=== PATIENT | male | born 1950 | race Caucasian/White ===

== ENCOUNTER 2020-07-12 11:18 | Emergency (ER) | payer MEDICARE, OTHER, SELFPAY ==
--- NOTE | ~2020-07-12 | XR_ITS ---
EXAMINATION: XR foot RT min 3V DATE: 07/12/2020 14:54 INDICATION: Toe deformity. TECHNIQUE: 4 views of right foot were obtained. COMPARISON: None. FINDINGS: Bone alignment is normal. No fracture. There is diffuse osteopenia. There is mild osteoarth ritis of first and second metatarsophalangeal joints and some of the interphalangeal joints and midfo ot joints. There are enthesophytes at the posterior and plantar aspects of calcaneal tuberosity. Ther e is soft tissue swelling of the foot and ankle. IMPRESSION: 1. Mild polyarticular osteoarthritis. Reviewed, dictated and finalized at location A.
[2020-07-12 11:21] VITALS: BP 150/74; PULSE 84; RESP 18; TEMP 36.1; O2SAT 98
[2020-07-12 12:36] VITALS: BP 169/69; PULSE 90; RESP 12; O2SAT 98
[2020-07-12 13:10] LABS: Basophils Absolute Auto 0.1 K/mm3 (0.0-0.1); Basophils Percent Auto 1.7 % (0.2-1.2); Eosinophils Absolute Auto 0.5 K/mm3 (0-0.3); Eosinophils Percent Auto 6.8 % (0-4.4); Hematocrit 38.3 % (42.0-52.0); Hemoglobin 11.3 g/dL (14.0-18.0); Immature Granulocyte Absolute 0.02 K/mm3 (0.00-0.031); Immature Granulocyte Percent A 0.3 % (0-0.5); Lymphocytes Absolute Auto 0.84 K/mm3 (0.9-3.2); Lymphocytes Percent Auto 12.6 % (18.3-44.2); Mean Corpuscular HGB Conc 29.5 g/dl (32-36); Mean Corpuscular Hemoglobin 24.6 pg (26-34); Mean Corpuscular Volume 83.3 fl (80-100); Mean Platelet Volume 10.2 fl (7.4-10.4); Monocytes Absolute Auto 0.7 K/mm3 (0.1-0.6); Monocytes Percent Auto 10.8 % (2.6-8.5); Neutrophils Absolute Auto 4.5 K/mm3 (1.3-6.7); Neutrophils Percent Auto 67.8 % (45.5-73.1); Platelet Count Result 355 k/mm3 (150-375); Red Cell Distribution Width 16.1 % (11.5-14.5); White Blood Count 6.7 K/mm3 (4.5-10.0)
[2020-07-12 13:19] LABS: Anisocytosis 1+ (NORMAL); Ovalocytes 1+ (NORMAL); Platelet Estimate Adequate (Adequate); Stomatocytes 2+ (NORMAL)
[2020-07-12 13:24] LABS: Anion Gap 10 mmol/L (8-16); Blood Urea Nitrogen 15 mg/dL (9-20); CRP 2.5 mg/dL (<1.0); Carbon Dioxide 32 mmol/L (22-30); Chloride 100 mmol/L (98-107); Estimated CRCL calculation 54 ml/min; Estimated Glomerular Filt Rate 33; Glucose 119 mg/dL (75-110); Potassium 3.6 mmol/L (3.4-5.0); Sodium 142 mmol/L (137-145)
[2020-07-12 13:37] LABS: Erythrocyte Sedimentation Rate 30 mm/hr (0-20)
--- NOTE | 2020-07-12 13:59 | ED.WOUNDLAC ---
HPI - Wound/Laceration General Chief Complaint: Wound/Laceration Stated Complaint: wound on leg Time Seen by Provider: 07/12/20 12:38 History of Present Illness HPI narrative: Patient is a 70-year-old male who is presenting to the ER with chronic right foot wound. He has been on antibiotics for over 2 weeks without improvement. He has been taking ciprofloxacin and clindamycin. Previously had been on doxycycline. He has chronic lower extremity edema and is known to have congestive heart failure. Reports difficulty with mobility due to his size and an issue with the spinal surgery in the past. No purulent exudate coming from the wound. Related Data Home Medications Medication Instructions Recorded Confirmed aspirin 81 mg tablet,delayed 81 mg PO DAILY 04/07/19 04/07/19 release furosemide 40 mg tablet 40 mg PO TID tablet 04/07/19 04/07/19 levothyroxine 200 mcg tablet 200 mcg PO QAM tablet 04/07/19 04/07/19 metronidazole 1 % topical gel 1 applic TOPICAL DAILY 04/07/19 04/07/19 minoxidil 10 mg tablet 10 mg PO DAILY 04/07/19 04/07/19 omeprazole magnesium 20 mg 20 mg PO DAILY 04/07/19 04/07/19 tablet,delayed release quinapril 40 mg tablet 40 mg PO DAILY 04/07/19 04/07/19 cholecalciferol (vitamin D3) 25 25 mcg PO DAILY 07/12/20 mcg (1,000 unit) capsule ciprofloxacin HCl 500 mg tablet 500 mg PO Q12H 07/12/20 clindamycin HCl 300 mg capsule 300 mg PO Q8H 07/12/20 fluticasone propionate 50 1 spray INTRANASAL DAILY 07/12/20 mcg/actuation nasal spray,suspension loratadine 10 mg tablet 10 mg PO DAILY 07/12/20 Allergies Allergy/AdvReac Type Severity Reaction Status Date / Time Sulfa (Sulfonamide Allergy Mild Rash Verified 07/12/20 11:25 Antibiotics) Penicillins Allergy Unknown SWELLING Verified 07/12/20 11:25 codeine AdvReac Mild N/V Verified 07/12/20 11:25 hydrocodone AdvReac Mild N/V Verified 07/12/20 11:25 tramadol AdvReac Mild Nausea Verified 07/12/20 11:25 Review of Systems Review of Systems: All systems reviewed & are unremarkable except as noted in HPI and below Constitutional: Constitutional: Denies chills, Denies fever(s) and Denies weakness Cardiovascular: Cardiovascular: Denies chest pain and Denies radiating jaw, neck or arm pain Respiratory: Respiratory: Denies cough, Denies dyspnea and Denies wheezing Integumentary/Breasts: Skin/Breast: Denies pruritus, Reports erythema, Denies rash and Reports skin ulcer PMFSH Past Medical History Medical History Chronic congestive heart failure Chronic low back pain Chronic venous insufficiency CKD (chronic kidney disease) stage 3, GFR 30-59 ml/min Dyslipidemia Environmental allergies Essential (primary) hypertension GERD without esophagitis Hypothyroidism Ocular rosacea AMELIA (obstructive sleep apnea) Peripheral polyneuropathy Rosacea Surgical History Surgical History History of cholecystectomy History of discectomy 2013 History of foot surgery Left Foot History of rotator cuff surgery bilateral Family History Family History Father Cardiovascular disease Grandparent Cancer Mother COPD (chronic obstructive pulmonary disease) Father Family history of cardiovascular disease Grandparent Family history of malignant neoplasm Social History Social History (System 07/30/19 @ 09:59 by Ailyn Cha) Smoking status: Former smoker Tobacco type: cigarettes Second hand tobacco smoke exposure: No Smoking end date: 04/01/78 Alcohol intake: current Substance use: never Substance use type: does not use Gender identity (if verbalized by the patient): Male Exam Narrative: Exam Narrative: GENERAL: Well-appearing, well-nourished, and in no acute distress. HEAD: Normocephalic, atraumatic. CHEST: Clear to auscultation. No respiratory distress. HEART: Regular r
[2020-07-12 14:31] VITALS: BP 148/79; PULSE 85; RESP 17; O2SAT 95
--- NOTE | 2020-07-12 14:40 | PC.NURSE ---
Pt requests XRAY of toe due to wound nurse mentioned it may be broken. EDP aware and orders for XRAY placed at this time.
== END 2020-07-12 15:07 | disposition home or self-care (01) ==
PROVIDERS: Emergency Provider Emergency Medicine; PCP Family Medicine
DX: I89.0 Lymphedema, not elsewhere classified (principal); S91.301A Unspecified open wound, right foot, initial encounter; I13.0 Hypertensive heart and chronic kidney disease with heart failure and stage 1 through stage 4 chronic kidney disease, or unspecified chronic kidney disease; N18.9 Chronic kidney disease, unspecified; I50.9 Heart failure, unspecified; E78.5 Hyperlipidemia, unspecified; K21.9 Gastro-esophageal reflux disease without esophagitis; E03.9 Hypothyroidism, unspecified; X58.XXXA Exposure to other specified factors, initial encounter
CPT/HCPCS: 36415; 73630; 80048; 85025; 85652; 86140; 99283

== ENCOUNTER 2020-07-14 10:00 | Outpatient (RCR) | payer MEDICARE, OTHER, SELFPAY ==
--- NOTE | 2020-06-27 11:42 | PTOPEVAL ---
PHYSICAL THERAPY EVALUATION AND PLAN OF CARE 06-27-20 Thank you for referring Irwin Cyr to [facility] for the diagnosis of B LE lymphedema.? He is scheduled to be seen for therapy? 3-5 x/week for 4 weeks. Please review, sign, date and return this plan of care LEXX. I agree with and certify that the following plan of care is medically necessary. Referring Physician Date Attending Provider: Eugenia Umaña NP *PT Outpatient Evaluation Document 06/27/20 10:05 AYLSON (Rec: 06/27/20 11:42 ALYSON [id number]) Outpatient Past Medical History Past Medical History Source of Past Medical History Patient Neurological History Hx Other Neurological Disorders Yes: decreased LE strength s/p back surgery Cardiovascular History Hx Cardiomyopathy Yes: enlarged L side heart Hx Congestive Heart Failure Yes: meds Hx Hypertension Yes: meds Respiratory History Hx Other Respiratory Disorders Yes: SOB all time/CHF Gastrointestinal History Hx Appendectomy Yes Hx Cholecystectomy Yes Genitourinary History Hx Renal Disease Yes: stage 4 kidney disease Musculoskeletal History Hx Back Pain Yes: chronic Hx Orthopedic Surgery Yes: lumbar surgery with R>L LE weakness-foot drop R Hx Other Musculoskeletal Disorders Yes: B carpal tunnel surgery- neuropathy B hands Hematological History Hx Hematological Disorders No Significant History Endocrine History Hx Hypothyroidism Yes: meds HEENT History Hx HEENT Disorders No Significant History Integumentary History Hx Other Skin Disorders Yes: rosechia Other History Hx Other Medical Conditions Yes: obesity Evaluation Information Problem Diagnosis B LE lymphedema Onset about 1 year Subjective Information multiple medical issues-- Query Text:As Reported By Patient/ follow with general dr, kidney 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
--- NOTE | 2020-07-15 07:48 | PCPTNOTE ---
no called and canceled due to being in the er until late last night.
--- NOTE | 2020-07-18 07:46 | PCPTNOTE ---
Irwin Cyr cancelled today said he fell on Saturday and was in the ER again per cook [employer] Liss Pepper.
--- NOTE | 2020-07-20 13:46 | PCPTNOTE ---
pt called and canceled today's appt; I called him and left a voice message, to confirm that he has removed his compression wraps. He is to call if any further questions/ concerns before next appt;
--- NOTE | 2020-08-19 11:37 | PCPTNOTE ---
PHYSICAL THERAPY DISCHARGE 08-19-20 Attending Provider: Eugenia Umaña NP Patient:Irwin Cyr Jr. Date of :1950 Mr. Cyr has not returned for any further treatments since 07/14/2020, due to hospitalization, therefore he will be discharged at this time. He has received 6 PT sessions, for the diagnosis of B LE lymphedema from June 27 to July 14. The goals were not assessed. Thank you for referring Irwin to [facility]. Please review, sign, date and return this discharge summary LEXX. I have been updated about the patient's current status and I agree with discharge from the above service at this time. Referring Physician Date
== END 2020-08-19 14:42 | disposition home or self-care (01) ==
LOC: ANHPT 10:00
PROVIDERS: PCP Family Medicine; Visit Provider Nurse Practitioner Adult Health
DX: I89.0 Lymphedema, not elsewhere classified (principal)
CPT/HCPCS: 29581; 97016; 97140; 97162

== ENCOUNTER 2020-07-14 19:05 | Emergency (ER) | payer MEDICARE, OTHER, SELFPAY ==
--- NOTE | ~2020-07-14 | CT_ITS ---
EXAMINATION: CT brain wo con DATE: 07/14/2020 21:57 INDICATION: Dizziness TECHNIQUE: Computed tomography (CT) of the head was performed without intravenous contrast. The mA wa s adjusted according to patient size. Iterative reconstruction technique was employed. Exam dose: 75 6.67 mGy-cm total exam DLP. COMPARISON: None FINDINGS: Limited examination: There is considerable streak artifact from tooth fillings which in com bination with nonstandard imaging results in considerable streak artifact particularly through the po sterior fossa and brainstem, limiting evaluation in these areas in particular. There is motion streak artifact as well. There is central and cortical cerebral atrophy. Bilateral vertebral artery and carotid siphon internal carotid artery calcifications are present. There is no evidence intracranial mass lesion or hemorrhage, midline shift or mass effect. No subdura l or epidural hematoma. Right scleral band. The paranasal sinuses and mastoid air cells are normally developed and aerated. No fracture or bone destruction of the cranial vault is evident. IMPRESSION: Limited examination; no acute intracranial finding Cerebral atherosclerosis Cerebral atrophy Reviewed, dictated and finalized at Location A. Reviewed, dictated and finalized at location A.
--- NOTE | ~2020-07-14 | XR_ITS ---
XR chest 1V portable DATE: 07/14/2020 21:17 INDICATION: Dizziness. Nausea and vomiting. History of congestive heart failure. TECHNIQUE: Portable AP chest on 07/14/2020 2102 hours COMPARISON: 05/19/2015 PA and lateral chest FINDINGS: Cardiomegaly. There is pulmonary vascular congestion and redistribution. There is mild infiltrate and/or atelectasis in the lower lung zones, left greater than right. Cannot exclude small pleural effusions. No pneumothorax. Aortic arch calcification, mild aortic unfolding. IMPRESSION: Cardiomegaly, pulmonary vascular redistribution, consistent with mild congestive heart fa ilure Mild infiltrate or atelectasis in the lower lung zones Reviewed, dictated and finalized at location A. IMPRESSION: Cardiomegaly, pulmonary vascular redistribution, consistent with mi ld congestive heart failure Mild infiltrate or atelectasis in the lower lung zones
[2020-07-14 19:06] VITALS: BP 167/89; PULSE 89; RESP 20; TEMP 36.8; O2SAT 80
[2020-07-14 19:18] VITALS: BP 128/83; PULSE 80; RESP 12; TEMP 37.1; O2SAT 95
--- NOTE | 2020-07-14 19:24 | ECG_ITS ---
Measurements Intervals [place] Rate: 64 P: SD: 0 QRS: -49 QRSD: 168 T: -20 QT: 473 QTc: 490 Interpretive Statements SINUS OR ECTOPIC ATRIAL RHYTHM WITH 2ND DEGREE AV BLOCK, MOBITZ TYPE II RIGHT BUNDLE BRANCH BLOCK LEFT ANTERIOR FASCICULAR BLOCK BASELINE ARTIFACT- II, III, AVF, V4 ABNORMAL ECG Electronically Signed On 07-15-2020 0:21:46 CDT by Reid Hubbard D.O.
--- NOTE | 2020-07-14 19:48 | PC.NURSE ---
Pt presents to ED from home with complaints of sob and nausea and vomiting post fall. Pt noted to hit left occipital lobe on ceramic loraine. Pt states he was ambulating to restroom and fell to floor. Pt is unaware of loc. Provided 4mg of zofran by ems while en route; pt continues to complain of nausea. Pt was also noted to have desaturated en route to ED and arrived to ED on 2 liters of O2 with saturation of 88%. O3 increased to 4 liters and pt tolerating well with saturation of 95%. Pt alert and oriented x4 at this time and in no obvious distress. EDMD notified of pt persistent nausea and dry heaving. No new orders provided at this time. Call button and personal items within reach. Pt advised to press call button for assistance.
[2020-07-14 19:54] LABS: Basophils Absolute Auto 0.1 K/mm3 (0.0-0.1); Basophils Percent Auto 1.6 % (0.2-1.2); Eosinophils Absolute Auto 0.5 K/mm3 (0-0.3); Eosinophils Percent Auto 7.9 % (0-4.4); Hematocrit 37.8 % (42.0-52.0); Immature Granulocyte Absolute 0.01 K/mm3 (0.00-0.031); Immature Granulocyte Percent A 0.2 % (0-0.5); Lymphocytes Absolute Auto 0.98 K/mm3 (0.9-3.2); Lymphocytes Percent Auto 17.2 % (18.3-44.2); Mean Corpuscular HGB Conc 29.1 g/dl (32-36); Mean Corpuscular Hemoglobin 24.4 pg (26-34); Mean Platelet Volume 10.3 fl (7.4-10.4); Monocytes Absolute Auto 0.6 K/mm3 (0.1-0.6); Monocytes Percent Auto 11.2 % (2.6-8.5); Neutrophils Absolute Auto 3.5 K/mm3 (1.3-6.7); Neutrophils Percent Auto 61.9 % (45.5-73.1); Platelet Count Result 318 k/mm3 (150-375); Red Cell Distribution Width 15.9 % (11.5-14.5); White Blood Count 5.7 K/mm3 (4.5-10.0)
[2020-07-14] MEDS: diphenhydrAMINE HCl INJ 50 MG/ML VIAL 25 MG IV PUSH (20:02)
[2020-07-14] MEDS: PROCHLORPERAZINE EDISYLATE 10 MG/2 ML VIAL IV PUSH (20:03)
[2020-07-14 20:07] LABS: Alanine Aminotransferase 10 U/L (4-50); Albumin Level 4.2 g/dL (3.5-5.1); Alkaline Phosphatase 66 U/L (38-126); Anion Gap 5 mmol/L (8-16); Aspartate Amino Transferase 24 U/L (17-59); Bilirubin,Total 0.8 mg/dL (0.2-1.3); Blood Urea Nitrogen 13 mg/dL (9-20); Calcium 8.4 mg/dL (8.4-10.2); Carbon Dioxide 33 mmol/L (22-30); Chloride 102 mmol/L (98-107); Estimated Glomerular Filt Rate 35; Glucose 107 mg/dL (75-110); Platelet Estimate Adequate (Adequate); Potassium 3.8 mmol/L (3.4-5.0); Sodium 140 mmol/L (137-145)
[2020-07-14 20:09] LABS: Anisocytosis 2+ (NORMAL); Hypochromasia 1+ (NORMAL)
--- NOTE | 2020-07-14 20:38 | PC.NURSE ---
Pt currently resting on cart. Straight cath performed for UA as pt was unable to provide sample. Pt tolerated procedure well and is resting on cart in its lowest position with call button and personal items within reach. Pt continues to tolerate O2 well with saturation of 94% at this time. Vitals remains stable and pt advised to press call button for assistance.
--- NOTE | 2020-07-14 20:38 | ED.DIZZY ---
HPI - Dizziness General Chief Complaint: Dizziness Stated Complaint: dizzy, n/v Time Seen by Provider: 07/14/20 19:18 Source: patient and EMS Mode of arrival: EMS Limitations: no limitations History of Present Illness HPI Narrative: 70-year-old male History of hypertension and of severe lymphedema in both legs for the last 7 or 8 years which severely limits his mobility and he always uses a walker Tonight he went into the restroom using his walker to dump out his urinal and fell He is not quite sure how that happened, he does not think that he was dizzy or syncopal and does not recall tripping On the other hand he does think that he hit his head on the tile floor and since that time he has had a headache, nausea and vomiting, and intense dizziness which is negligible if he remains still but can become quite violently severe if he moves around Does not have any neck pain or any other new neurologic symptoms Does have chronic hearing loss and tinnitus in both ears MD elicited complaint: dizziness Related Data Home Medications Medication Instructions Recorded Confirmed aspirin 81 mg tablet,delayed 81 mg PO DAILY 04/07/19 04/07/19 release furosemide 40 mg tablet 40 mg PO TID tablet 04/07/19 04/07/19 levothyroxine 200 mcg tablet 200 mcg PO QAM tablet 04/07/19 04/07/19 metronidazole 1 % topical gel 1 applic TOPICAL DAILY 04/07/19 04/07/19 minoxidil 10 mg tablet 10 mg PO DAILY 04/07/19 04/07/19 omeprazole magnesium 20 mg 20 mg PO DAILY 04/07/19 04/07/19 tablet,delayed release quinapril 40 mg tablet 40 mg PO DAILY 04/07/19 04/07/19 cholecalciferol (vitamin D3) 25 25 mcg PO DAILY 07/12/20 mcg (1,000 unit) capsule ciprofloxacin HCl 500 mg tablet 500 mg PO Q12H 07/12/20 clindamycin HCl 300 mg capsule 300 mg PO Q8H 07/12/20 fluticasone propionate 50 1 spray INTRANASAL DAILY 07/12/20 mcg/actuation nasal spray,suspension loratadine 10 mg tablet 10 mg PO DAILY 07/12/20 Allergies Allergy/AdvReac Type Severity Reaction Status Date / Time Sulfa (Sulfonamide Allergy Mild Rash Verified 07/12/20 11:25 Antibiotics) Penicillins Allergy Unknown SWELLING Verified 07/12/20 11:25 codeine AdvReac Mild N/V Verified 07/12/20 11:25 hydrocodone AdvReac Mild N/V Verified 07/12/20 11:25 tramadol AdvReac Mild Nausea Verified 07/12/20 11:25 Review of Systems Review of Systems: All systems reviewed & are unremarkable except as noted in HPI and below Constitutional: Constitutional: Reports no additional constitutional complaints, Denies chills, Denies fever(s) and Denies headache(s) Eyes: Eyes: Reports no additional eye complaints and Denies change in vision ENT: Denies headache(s) and Denies sore throat Cardiovascular: Cardiovascular: Denies chest pain and Denies dyspnea Respiratory: Respiratory: Denies cough and Denies dyspnea Gastrointestinal: Gastrointestinal: Denies abdominal pain, Denies diarrhea and Denies vomiting Genitourinary: Genitourinary: Denies dysuria and Denies urinary frequency Musculoskeletal: Musculoskeletal: Reports myalgias, Denies deformity, Reports arthralgias, Reports joint swelling and Denies numbness Integumentary/Breasts: Skin/Breast: Reports erythema, Denies rash and Denies wounds Neurologic: Reports vertigo, Reports dizziness, Denies headache(s), Denies focal weakness and Denies numbness Psychiatric: Psychiatric: Reports no additional psychiatric complaints Endocrine: Endocrine: Reports no additional endocrine complaints Hematologic/Lymphatic: Hematologic/Lymphatic: Reports no additional hematologic/lymphatic complaints Allergic/Immunologic: Allergic/Immunologic: Reports no additional allergic/immunologic complaints PMFSH Past Medical History Medical History Chronic congestive heart failure Chronic low back pain Chronic venous insufficiency CKD (chronic kidney disease) stage 3, GFR 30-59 ml/min Dyslipidemia Environmental a
[2020-07-14 20:46] LABS: Add Urine Microscopic? YES; Appearance Urine Clear (Clear); Bilirubin Urine Negative (Negative); Blood Urine Negative (Negative); Color Urine Yellow (Yellow); Glucose Urine UA Negative (Negative); Ketones Urine Negative (Negative); Leukocyte Esterase Ur Negative LEU/UL (Negative); Mucus Urine Rare /lpf; Nitrate Urine Negative (Negative); Protein Urine 2+ mg/dL (Negative); RBC Urine 0-2 /hpf (0-2); Specific Grav Ur 1.014 (1.001-1.035); Squamous Epithelial Cell Urine Rare /hpf (Few); Urobilinogen Urine Negative mg/dL (<2.0); WBC Urine 0-3 /hpf
--- NOTE | 2020-07-14 21:47 | PC.NURSE ---
Pt states he feels better since medication administration and denies nausea and emesis. Call button and personal items within reach. Vitals stable and pt remains alert and oriented x4. Pt advised to press call button for assistance. Pt requests water; will notify EDMD.
[2020-07-14 21:49] VITALS: BP 136/67; PULSE 88; RESP 18; TEMP 36.7; O2SAT 94
--- NOTE | 2020-07-14 21:56 | PC.NURSE ---
Pt to and from ct and is now back in room resting on cart. Pt requesting water and was advised that he may not have anything to until ct results post; pt voices his understanding.
--- NOTE | 2020-07-14 22:55 | PC.NURSE ---
Pt resting on cart in its lowest position with call button and personal items within reach. No complaints or concerns voiced. Pt remains alert and oriented x4 and vitals are stable. Pt advised to press call button for assistance.
[2020-07-14 23:19] VITALS: BP 153/76; PULSE 85; RESP 28; TEMP 36.7; O2SAT 97
--- NOTE | 2020-07-14 23:19 | PC.NURSE ---
Pt called daughter for transport back home and states she will present to ED in 20-30 mins.
== END 2020-07-14 23:41 | disposition home or self-care (01) ==
PROVIDERS: Emergency Provider Emergency Medicine; PCP Family Medicine
DX: R42 Dizziness and giddiness (principal); H93.13 Tinnitus, bilateral; H91.93 Unspecified hearing loss, bilateral; I13.0 Hypertensive heart and chronic kidney disease with heart failure and stage 1 through stage 4 chronic kidney disease, or unspecified chronic kidney disease; N18.30 Chronic kidney disease, stage 3 unspecified; I50.9 Heart failure, unspecified; K21.9 Gastro-esophageal reflux disease without esophagitis; E78.5 Hyperlipidemia, unspecified; E03.9 Hypothyroidism, unspecified; G47.33 Obstructive sleep apnea (adult) (pediatric); G62.9 Polyneuropathy, unspecified; Z87.891 Personal history of nicotine dependence; Z79.82 Long term (current) use of aspirin; I45.2 Bifascicular block; R94.31 Abnormal electrocardiogram [ECG] [EKG]
CPT/HCPCS: 36415; 70450; 71045; 80053; 81001; 85025; 93005; 96374; 96375; 99284; J0780; J1200

== ENCOUNTER 2020-07-20 11:49 | Inpatient (IN) | payer MEDICARE, OTHER, SELFPAY ==
[2020-07-20] VITALS (8 sets, daily range): BP systolic 96–135; BP diastolic 52–102; PULSE 79–90; RESP 15–22; TEMP 36.6–37.1; O2SAT 91–98; BMI 59.9
--- NOTE | ~2020-07-20 | XR_ITS ---
EXAMINATION: XR chest 1V portable DATE: 07/20/2020 13:22 INDICATION: Cough TECHNIQUE: frontal view of the chest was obtained. COMPARISON: Chest radiograph dated 07/14/20 FINDINGS: Opacities in the bilateral lower lung zones. Blunting of the costophrenic angles which could represen t small bilateral pleural effusions. No pneumothorax. Cardiomegaly. Calcified right paratracheal lymp h node consistent with old granulomatous disease. Visualized bones and soft tissues are unremarkable. IMPRESSION: 1. Opacities in the bilateral lower lung zones which could represent mild pulmonary edema, atelectasi s, pneumonia, small pleural effusions or some combination thereof. 2. Cardiomegaly. Reviewed, dictated and finalized at location A. IMPRESSION: 1. Opacities in the bilateral lower lung zones which could represent mild pulmo nary edema, atelectasis, pneumonia, small pleural effusions or some combination thereof. 2. Cardiomegaly.
--- NOTE | ~2020-07-20 | XR_ITS ---
EXAMINATION: XR foot RT min 3V DATE: 07/20/2020 13:22 INDICATION: Right foot wound TECHNIQUE: Dorsoplantar, two oblique and lateral views of the right foot were obtained. COMPARISON: 07/12/2020 FINDINGS: Bone alignment is normal. Diffuse osteopenia. No fracture. Minimal to mild polyarticular osteoarthrit is at multiple joints in the mid and forefoot. Moderate-sized Achilles and plantar calcaneal spurs. N o periosteal reaction or cortical erosions to suggest osteomyelitis. Diffuse soft tissue swelling abo ut the right foot. No ankle joint effusion. IMPRESSION: 1. Mild polyarticular osteoarthritis. No acute osseous abnormality. Reviewed, dictated and finalized at location A.
--- NOTE | ~2020-07-20 | XR_ITS ---
XR chest 1V portable DATE: 07/21/2020 06:50 INDICATION: Shortness of breath TECHNIQUE: Portable AP chest on 07/21/2020 at 0649 hours COMPARISON: 07/20/2020 portable AP chest at 1322 hours FINDINGS: There is cardiomegaly, pulmonary vascular congestion and redistribution. There are mild per ihilar and lower lung zone infiltrates which may be due to pulmonary edema. Pneumonia or aspiration a re additional considerations in the differential diagnosis. Included skeletal structures appear unremarkable. IMPRESSION: Cardiomegaly, congestive changes Reviewed, dictated and finalized at location A.
--- NOTE | ~2020-07-20 | XR_ITS ---
EXAMINATION: XR fl guide central line place DATE: 07/21/2020 15:02 INDICATION: Tunneled dialysis catheter placement TECHNIQUE: 2 fluoroscopic images of the right upper chest were obtained during procedure performed by Dr. Jose. Radiologist was not present for the imaging or procedure. The amount of fluoroscopy time used during this procedure was 0.1 minutes. COMPARISON: None. FINDINGS: Images demonstrate a large-bore dual-lumen right internal jugular tunneled central venous catheter wi th distal tip projecting over the region of the superior cavoatrial junction. Visualized portion of t he right lung is clear. IMPRESSION: 1. Fluoroscopy utilized during placement of a right internal jugular central venous catheter. See pro cedure note for further detail. Reviewed, dictated and finalized at location A. IMPRESSION: 1. Fluoroscopy utilized during placement of a right internal jugular central ve nous catheter. See procedure note for further detail.
--- NOTE | ~2020-07-20 | US_ITS ---
US renal BI 07/20/2020 17:51 Procedure: Realtime transabdominal ultrasound of the kidneys and bladder. Indication: Renal failure Comparison: No prior studies for comparison. Findings: Examination limited by patient body habitus. There is fatty infiltration of the liver. Cira l echotexture is normal bilaterally without hydronephrosis, contour deforming mass or renal calculus. The right kidney measures 10.6 cm and left kidney measures 10.7 cm. There is fluid in the pelvis, li ross ascites given that there is a Miller catheter in the bladder. There is ascites in the upper abdom en. Impression: 1: Ascites. 2: Hepatic steatosis. Reviewed, dictated and finalized at location A. Impression: 1: Ascites. 2: Hepatic steatosis.
--- NOTE | ~2020-07-20 | XR_ITS ---
XR chest port-a-cath/central DATE: 07/21/2020 15:22 INDICATION: Tunneled dialysis catheter placement TECHNIQUE: Portable upright AP chest views on 07/21/2020 at 1518 at 1519 hours COMPARISON: 07/21/2020 portable AP chest at 0649 hours FINDINGS: Interval placement of right internal jugular dual-lumen central venous catheter, catheter t ip overlying right atrium. Cardiomegaly. There is pulmonary vascular congestion and redistribution, prominence of the minor fiss ure and pulmonary interstitium including evidence of some Ava B-lines, consistent with pulmonary i nterstitial and subpleural edema. Aortic arch calcification. Left retrocardiac lower lobe infiltrate or atelectasis is suggested, although this area is not optima lly evaluated for technical reasons. IMPRESSION: Right internal jugular central venous catheter placement, tip overlying right atrium Cardiomegaly, congestive changes Reviewed, dictated and finalized at Location A. Reviewed, dictated and finalized at location A. IMPRESSION: Right internal jugular central venous catheter placement, tip overl lisa right atrium Cardiomegaly, congestive changes
--- NOTE | 2020-07-20 12:13 | ECG_ITS ---
Measurements Intervals [place] Rate: 90 P: 257 DC: 210 QRS: -63 QRSD: 166 T: 96 QT: 426 QTc: 522 Interpretive Statements SINUS RHYTHM WITH FIRST DEGREE AV BLOCK VENTRICULAR PREMATURE COMPLEXES RIGHT BUNDLE BRANCH BLOCK LEFT ANTERIOR FASCICULAR BLOCK BASELINE ARTIFACT- I, II, III, AVR, AVF, V3-V6 ABNORMAL ECG Electronically Signed On 07-20-2020 12:45:20 CDT by Reid Hubbard D.O.
--- NOTE | 2020-07-20 12:18 | ED.GENADULT ---
HPI - General Adult General Chief complaint: Recheck/Abnormal Lab/Rx Stated complaint: abnormal kidney function Time Seen by Provider: 07/20/20 12:03 Source: RN notes reviewed History of Present Illness HPI narrative: Patient presents to emergency department from home for elevated creatinine. Patient states that he had a fall approximately week ago and was seen in the ED and follow-up with his primary care physician yesterday for follow-up blood work was done at that time which showed a creatinine up to 5.5 and is called today to come to the emergency department. Patient states that over the past 5 days he has been having increased generalized swelling with mild shortness of breath he states that he has not been taking any NSAIDs he states that he was on 2 antibiotics for a right foot infection that he is no longer taking that he was started on by podiatry denies any fevers or chills chest pain abdominal pain or any other symptoms he states he has had decreased urine output patient does have a history of CHF and is on Lasix 40 mg 3 times a day he is followed by Dr. shepard for for nephrology Related Data Home Medications Medication Instructions Recorded Confirmed aspirin 81 mg tablet,delayed 81 mg PO DAILY 04/07/19 07/19/20 release furosemide 40 mg tablet 40 mg PO TID tablet 04/07/19 07/19/20 levothyroxine 200 mcg tablet 200 mcg PO QAM tablet 04/07/19 07/19/20 minoxidil 10 mg tablet 10 mg PO DAILY 04/07/19 07/19/20 omeprazole magnesium 20 mg 20 mg PO DAILY 04/07/19 07/19/20 tablet,delayed release quinapril 40 mg tablet 40 mg PO DAILY 04/07/19 07/19/20 fluticasone propionate 50 1 spray INTRANASAL DAILY 07/12/20 07/19/20 mcg/actuation nasal spray,suspension loratadine 10 mg tablet 10 mg PO DAILY 07/12/20 07/19/20 Allergies Allergy/AdvReac Type Severity Reaction Status Date / Time Sulfa (Sulfonamide Allergy Mild Rash Verified 07/20/20 14:10 Antibiotics) Penicillins Allergy Unknown SWELLING Verified 07/20/20 14:10 codeine AdvReac Mild N/V Verified 07/20/20 14:10 hydrocodone AdvReac Mild N/V Verified 07/20/20 14:10 tramadol AdvReac Mild Nausea Verified 07/20/20 14:10 Review of Systems Review of Systems: Narrative: Gen.: Denies fevers or chills ENT: Denies congestion Respiratory: Reports shortness of breath CV: Denies chest pain or palpitations reports lower extremity swelling GI: Denies abdominal pain nausea, emesis or diarrhea reports decreased urine output Musculoskeletal: Denies back pain or muscle pain Neuro: Denies numbness, tingling, weakness or focal weakness Skin: Denies rash Except as documented, all other systems reviewed and negative [facility] Past Medical History Medical History Chronic congestive heart failure Chronic low back pain Chronic venous insufficiency CKD (chronic kidney disease) stage 3, GFR 30-59 ml/min Dyslipidemia Environmental allergies Essential (primary) hypertension GERD without esophagitis Hypothyroidism Lymphedema of both lower extremities Ocular rosacea AMELIA (obstructive sleep apnea) Peripheral polyneuropathy Rosacea Surgical History Surgical History H/O eye surgery (~2005) [id number] [facility] History of cholecystectomy (~2008) History of discectomy 2013 History of foot surgery Left Foot History of rotator cuff surgery bilateral Family History Family History Father Cardiovascular disease Grandparent Cancer Mother COPD (chronic obstructive pulmonary disease) Father Family history of cardiovascular disease Grandparent Family history of malignant neoplasm Social History Social History Smoking packs per day: 1.5 Smoking cigarettes per day: 30.0 Years smoked: 30 Smoking pack-years: 45.00 Smoking status: Former smoker Tobacco type
[2020-07-20 12:21] LABS: Basophils Absolute Auto 0.1 K/mm3 (0.0-0.1); Basophils Percent Auto 1.3 % (0.2-1.2); Eosinophils Absolute Auto 0.4 K/mm3 (0-0.3); Eosinophils Percent Auto 5.1 % (0-4.4); Hematocrit 38.6 % (42.0-52.0); Hemoglobin 11.6 g/dL (14.0-18.0); Immature Granulocyte Absolute 0.04 K/mm3 (0.00-0.031); Immature Granulocyte Percent A 0.5 % (0-0.5); Lymphocytes Absolute Auto 1.01 K/mm3 (0.9-3.2); Lymphocytes Percent Auto 13.2 % (18.3-44.2); Mean Corpuscular HGB Conc 30.1 g/dl (32-36); Mean Corpuscular Hemoglobin 24.7 pg (26-34); Mean Corpuscular Volume 82.1 fl (80-100); Mean Platelet Volume 10.9 fl (7.4-10.4); Monocytes Absolute Auto 0.7 K/mm3 (0.1-0.6); Monocytes Percent Auto 9.2 % (2.6-8.5); Neutrophils Absolute Auto 5.4 K/mm3 (1.3-6.7); Neutrophils Percent Auto 70.7 % (45.5-73.1); Platelet Count Result 366 k/mm3 (150-375); Red Cell Distribution Width 16.3 % (11.5-14.5); White Blood Count 7.7 K/mm3 (4.5-10.0)
[2020-07-20 12:31] LABS: Alanine Aminotransferase 11 U/L (4-50); Albumin Level 4.3 g/dL (3.5-5.1); Alkaline Phosphatase 71 U/L (38-126); Anion Gap 13 mmol/L (8-16); Aspartate Amino Transferase 28 U/L (17-59); Bilirubin,Total 0.9 mg/dL (0.2-1.3); Blood Urea Nitrogen 41 mg/dL (9-20); Calcium 8.6 mg/dL (8.4-10.2); Carbon Dioxide 26 mmol/L (22-30); Chloride 96 mmol/L (98-107); Estimated CRCL calculation 18 ml/min; Estimated Glomerular Filt Rate 8; Glucose 130 mg/dL (75-110); Potassium 4.2 mmol/L (3.4-5.0); Sodium 135 mmol/L (137-145)
[2020-07-20 12:38] LABS: INR 1.3; Prothrombin Time 16.3 Seconds (11.1-14.7)
[2020-07-20 12:39] LABS: NT Pro B Type Natriuretic Pept 18800 PG/ML (5-100); Partial Thromboplastin Time 29.5 SECONDS (22.3-36.8)
[2020-07-20 13:22] LABS: Add Urine Microscopic? YES; Appearance Urine Clear (Clear); Bilirubin Urine Negative (Negative); Blood Urine Negative (Negative); Color Urine Yellow (Yellow); Glucose Urine UA Negative (Negative); Hyaline Casts Urine 20-29 /lpf; Ketones Urine Negative (Negative); Leukocyte Esterase Ur Negative LEU/UL (Negative); Mucus Urine Rare /lpf; Nitrate Urine Negative (Negative); Protein Urine 1+ mg/dL (Negative); Specific Grav Ur 1.016 (1.001-1.035); Squamous Epithelial Cell Urine Occasional /hpf (Few); Urobilinogen Urine Negative mg/dL (<2.0)
--- NOTE | 2020-07-20 15:42 | PC.NURSE ---
This patient, Irwin Cyr Jr., was admitted to [facility] Surg Room 315-01. Patient/family oriented to hospital policies and general routines including ID bracelet, bed and alarms, visiting hours, pain management, procedures, bathroom and other care routines, personal items, smoking policy, room service/diet, and visiting hours. Information on how to activate the Rapid Response Team has been discussed. Patient/Family are encouraged to report perceived risks to care and to ask questions if they do not understand what they are told or what they should do.
[2020-07-20] MEDS: SODIUM CHLORIDE 0.9% IV 1,000 ML 50 ML IV CONT (16:18)
--- NOTE | 2020-07-20 17:07 | PM.IMHP ---
H&P: HPI History of Present Illness Date/Time: 07/20/20 17:07 Patient presents to emergency department from home for elevated creatinine taht was noted at blood work done ysterday. he reports she was in a week ago with a fall from weakness. workup was okay at that time. he was sent home. he reports he has been feeeling progerssvely weaker since week now. no nausea, vomting. he has chornic sob but no chest pain. he is paraparetic since his back surgery many years ago and ambulates with walker at home. He also has issues wt chronic lower extremity edema with lymphedema. he was recently treated for his foot infection with antibiocis which include ciprofloxacin 500 mg po bid and clindamycin. he has finished those antibiotics about a week ago and he took them for 3 weeks total. he sees wound care at [facility] and is doing wet to dry. he also went to see lymphedema cinic and had it wrapped a week ago. no fever, chlls. no rash. he also reports that his bp at his PCP office was low. he also been on aleve twice daily. he reports that he has not been urinating much since past few days now. he has been started on ivf as directed by needle punch machine operator helper who was consulted from the ED. Chief Complaint: renal failure Review of Systems Review of Systems: Narrative: - CONSTITUTIONAL: Denies weight loss, fever and chills. - HEENT: Denies changes in vision and hearing - RESPIRATORY: reports chronic SOB , denies cough. - CV: Denies palpitations and CP. - GI: Denies abdominal pain, nausea, vomiting and diarrhea. - : Denies dysuria and urinary frequency. - MSK: Denies myalgia and joint pain. - SKIN: Denies rash and pruritus. - NEUROLOGICAL: Denies headache and syncope. - PSYCHIATRIC: Denies recent changes in mood. Denies anxiety and depression. All systems reviewed & are unremarkable except as noted in HPI and below PMFSH Past Medical History Medical History Chronic congestive heart failure Chronic low back pain Chronic venous insufficiency CKD (chronic kidney disease) stage 3, GFR 30-59 ml/min Dyslipidemia Environmental allergies Essential (primary) hypertension GERD without esophagitis Hypothyroidism Lymphedema of both lower extremities Ocular rosacea AMELIA (obstructive sleep apnea) Peripheral polyneuropathy Rosacea Surgical History Surgical History H/O eye surgery (~2005) [id number] [facility] History of cholecystectomy (~2008) History of discectomy 2013 History of foot surgery Left Foot History of rotator cuff surgery bilateral Family History Family History Father Cardiovascular disease Grandparent Cancer Mother COPD (chronic obstructive pulmonary disease) Father Family history of cardiovascular disease Grandparent Family history of malignant neoplasm Social History Social History Smoking packs per day: 1.5 Smoking cigarettes per day: 30.0 Years smoked: 30 Smoking pack-years: 45.00 Smoking status: Former smoker Second hand tobacco smoke exposure: No Alcohol intake: current Substance use: never Substance use type: does not use Gender identity (if verbalized by the patient): Male Spiritual care concerns: No Meds Home Medications and Allergies Home Medications Medication Instructions Recorded Confirmed Type aspirin 81 mg tablet,delayed 81 mg PO DAILY 04/07/19 07/20/20 History release furosemide 40 mg tablet 40 mg PO TID tablet 04/07/19 07/20/20 History levothyroxine 200 mcg tablet 200 mcg PO QAM tablet 04/07/19 07/20/20 History minoxidil 10 mg tablet 10 mg PO DAILY 04/07/19 07/20/20 History omeprazole magnesium 20 mg 20 mg PO DAILY 04/07/19 07/20/20 History tablet,delayed release quinapril 40 mg tablet 40 mg PO DAILY 04/07/19 07/20/20 History fluticasone propionate
[2020-07-20 17:52] LABS: Creatine Kinase 145 U/L (55-170)
--- NOTE | 2020-07-20 17:55 | PM.CNNEP ---
Assessment and Plan Assessment and plan (1) CKD (chronic kidney disease) stage 3, GFR 30-59 ml/min: Qualifiers: Chronic kidney disease stage 3 subtype: stage 3b (GFR 30-44) Qualified Code(s): N18.32 - Chronic kidney disease, stage 3b Code(s): N18.3 - Chronic kidney disease, stage 3 (moderate) Status: Acute Assessment and Plan: Irwin has chronic kidney disease. His baseline GFR is in the low 30s, giving him stage IIIB chronic kidney disease. Most likely this is due to hypertension and chronic pre renal azotemia due to his poorly functioning heart. (2) Acute renal failure: Code(s): N17.9 - Acute kidney failure, unspecified Status: Acute Assessment and Plan: The patient's creatinine is elevated much more than it was before. This could be some from 1 or more of several different issues; The patient has a history of congestive heart failure. His LV function could just be worse and so his pre renal azotemia is worse. His diuretics were increased 2 months ago. Possibly this is caught up with him but this would be less likely because his creatinine was stable just a week ago. He could have acute interstitial nephritis from the Cipro, but he does not have a rash or fever. He could have obstructive uropathy. He has a Miller catheter in now and if his creatinine improves rapidly this may have been the case. Rhabdomyolysis is a possibility as well. We will check a CPK. Glomerulonephritis is unlikely in this clinical setting. I will check urine electrolytes and eosinophils, renal ultrasound, CPK, serology and immunofixation, and repeat an echocardiogram. (3) CHF (congestive heart failure): Code(s): I50.9 - Heart failure, unspecified Status: Acute Assessment and Plan: The patient says he has congestive heart failure. I do not see an echo on the chart. Will check this out. It is unclear if this is actually left ventricular dysfunction or if this might be due to this sleep apnea and pulmonary hypertension leading to his swelling. His chest x-ray does show bibasilar infiltrates. He is getting some IV fluids. Will give this gingerly and follow his fluid status closely. (4) Lymphedema of both lower extremities: Code(s): I89.0 - Lymphedema, not elsewhere classified Status: Acute Assessment and Plan: This is a chronic problem. He has very thickened skin in is highly likely to get recurrent cellulitis because of this. (5) Essential (primary) hypertension: Code(s): I10 - Essential (primary) hypertension Status: Acute Assessment and Plan: His blood pressure is under good control. He is on minoxidil. His blood pressure might be a bit soft so I am going to hold the minoxidil for now. (6) GERD without esophagitis: Code(s): K21.9 - Gastro-esophageal reflux disease without esophagitis Status: Acute Assessment and Plan: He is on pantoprazole (7) AMELIA (obstructive sleep apnea): Code(s): G47.33 - Obstructive sleep apnea (adult) (pediatric) Status: Acute Assessment and Plan: He uses a CPAP machine per religiously (8) Dyslipidemia: Code(s): E78.5 - Hyperlipidemia, unspecified Status: Acute History of Present Illness Reason for Consult Consult date: 07/20/20 Chief Complaint Chief complaint: acute renal failure History of Present Illness Narrative: Is a very pleasant 70-year-old gentleman who has multiple medical problems including congestive heart failure with a low ejection fraction, chronic edema because of this, chronic use of loop diuretics to treat the edema, chronic kidney disease stage [address] Longo in his office, hyperlipidemia, hypertension, GERD, rosacea, sleep apnea on a CPAP machine. The patient's kidney disease has been going on for more than 10 years. He is to be followed by Dr. Carlson who managed his chronic kidney disease and also kept his blood press
[2020-07-20 19:58] LABS: Creatinine Urine 278.2 mg/dL; Total Protein Urine Random 136 mg/dL; Ur Ttl Prot Creatinine Ratio 0.49 mg/mg (0-0.20)
[2020-07-20 20:00] LABS: Sodium Urine Random 43 meq/L
[2020-07-20 20:01] LABS: Urea Random Urine 217 MG/DL
[2020-07-20 20:27] LABS: Eosinophil Urine None Seen % (None Seen)
[2020-07-20 20:38] LABS: Creatine Kinase 136 U/L (55-170)
[2020-07-20] MEDS: HEPARIN SODIUM 5,000 UNITS/ML VIAL 5000 UNITS SUB-Q (20:40)
[2020-07-20 20:46] LABS: Complement C3 114 mg/dL (88-165)
[2020-07-20 20:51] LABS: Erythrocyte Sedimentation Rate 24 mm/hr (0-20)
[2020-07-21] VITALS (42 sets, daily range): BP systolic 84–155; BP diastolic 42–83; PULSE 74–93; RESP 10–26; TEMP 36–37; O2SAT 92–99
[2020-07-21 05:32] LABS: Glucose Point of Care 85 (65-105)
[2020-07-21] MEDS: SODIUM CHLORIDE 0.9% IV 500 ML 999 ML IV CONT (05:50)
[2020-07-21] MEDS: LEVOTHYROXINE SODIUM 100 MCG TABLET 200 MCG PO (05:51)
--- NOTE | 2020-07-21 05:54 | PC.NURSE ---
Patient blood pressure was low. Notified MD and orders were to do a 500 ml bolus, then recheck patient blood pressure. Patient is asymptomatic at this time.
[2020-07-21 06:09] LABS: Basophils Absolute Auto 0.1 K/mm3 (0.0-0.1); Basophils Percent Auto 1.2 % (0.2-1.2); Eosinophils Absolute Auto 0.3 K/mm3 (0-0.3); Eosinophils Percent Auto 4.6 % (0-4.4); Hematocrit 32.6 % (42.0-52.0); Immature Granulocyte Absolute 0.03 K/mm3 (0.00-0.031); Immature Granulocyte Percent A 0.4 % (0-0.5); Lymphocytes Percent Auto 13.6 % (18.3-44.2); Mean Corpuscular HGB Conc 30.7 g/dl (32-36); Mean Corpuscular Hemoglobin 24.8 pg (26-34); Mean Corpuscular Volume 80.7 fl (80-100); Monocytes Absolute Auto 0.9 K/mm3 (0.1-0.6); Monocytes Percent Auto 11.9 % (2.6-8.5); Neutrophils Percent Auto 68.3 % (45.5-73.1); Platelet Count Result 382 k/mm3 (150-375); Red Blood Count 4.04 M/mm3 (4.6-6.20); Red Cell Distribution Width 16.3 % (11.5-14.5); White Blood Count 7.3 K/mm3 (4.5-10.0)
[2020-07-21 06:44] LABS: Albumin Level 3.7 g/dL (3.5-5.1); Anion Gap 11 mmol/L (8-16); Blood Urea Nitrogen 45 mg/dL (9-20); Calcium 7.7 mg/dL (8.4-10.2); Carbon Dioxide 25 mmol/L (22-30); Chloride 98 mmol/L (98-107); Estimated CRCL calculation 18 ml/min; Estimated Glomerular Filt Rate 9; Glucose 91 mg/dL (75-110); Phosphorus 7.5 mg/dL (2.5-4.5); Potassium 4.4 mmol/L (3.4-5.0); Sodium 134 mmol/L (137-145)
--- NOTE | 2020-07-21 08:11 | PM.PNNEP ---
Progress Note: A&P Assessment and Plan (1) CKD (chronic kidney disease) stage 3, GFR 30-59 ml/min: Qualifiers: Chronic kidney disease stage 3 subtype: stage 3b (GFR 30-44) Qualified Code(s): N18.32 - Chronic kidney disease, stage 3b Code(s): N18.3 - Chronic kidney disease, stage 3 (moderate) Status: Acute Assessment and Plan: Irwin has chronic kidney disease. His baseline GFR is in the low 30s, giving him stage IIIB chronic kidney disease. Most likely this is due to hypertension and chronic pre renal azotemia due to his poorly functioning heart. (2) Acute renal failure: Code(s): N17.9 - Acute kidney failure, unspecified Status: Acute Assessment and Plan: The patient has JENA Normal size kidneys without hydronephrosis. He does have hepatic steatosis and ascites. Urine electrolytes show pre renal azotemia Urine eosinophils are negative. Echo is not done yet. With pre renal azotemia and pulmonary edema on his chest x-ray this sounds like LV failure. Echocardiogram is pending. Because of the volume overload I will give Bumex 2 mg IV push now. He hardly made any urine overnight, only 50cc. If he does not respond to the Bumex then we may need to do dialysis. I discussed this with the patient. We discussed the risks including hypotension, benefits, alternatives, and the process of dialysis. He agrees to proceed if we need to do this. Other possibilities include interstitial nephritis. He has peripheral eosinophilia but is eosinophils are negative, he does not have a fever. Consider a trial of steroids. Will discuss with the hospitalist. He has a Miller catheter in place and does not have hydronephrosis so I do not think obstruction is an issue here. His CPK is normal. So for now will give Bumex, consider dialysis, consider steroids. (3) CHF (congestive heart failure): Code(s): I50.9 - Heart failure, unspecified Status: Acute Assessment and Plan: Echo is pending (4) Lymphedema of both lower extremities: Code(s): I89.0 - Lymphedema, not elsewhere classified Status: Acute Assessment and Plan: This is a chronic problem. He has very thickened skin in is highly likely to get recurrent cellulitis because of this. Currently, he does not have a white count or a fever. (5) Essential (primary) hypertension: Code(s): I10 - Essential (primary) hypertension Status: Acute Assessment and Plan: His blood pressure is actually a bit low. He is off his minoxidil. (6) GERD without esophagitis: Code(s): K21.9 - Gastro-esophageal reflux disease without esophagitis Status: Acute Assessment and Plan: He is on pantoprazole (7) AMELIA (obstructive sleep apnea): Code(s): G47.33 - Obstructive sleep apnea (adult) (pediatric) Status: Acute Assessment and Plan: He uses a CPAP machine per religiously (8) Dyslipidemia: Code(s): E78.5 - Hyperlipidemia, unspecified Status: Acute Subjective Date/time seen: 07/21/20 08:11 Interval history: The patient developed low blood pressure last night. He received some fluids to help this out but then became short of breath. Now he is on a BiPAP mask. His O2 sat is 96% currently. He is lying flat in bed. Does not feel short of breath but is on the CPAP machine. No chest pain. No belly pain or nausea or vomiting. Review of Systems Cardiovascular: Cardiovascular: Reports no additional cardiovascular complaints Respiratory: Respiratory: Reports no additional respiratory complaints Gastrointestinal: Gastrointestinal: Reports no additional gastrointestinal complaints Genitourinary: Genitourinary: Reports no additional male genitourinary complaints Exam Narrative: Exam Narrative: WDWN in NAD skin no rash head ncat lungs decreased breath sounds at the bases cor reg no rub abd BS+ nontender and soft ext no edema. Objecti
[2020-07-21] MEDS: BUMETANIDE INJ 1 MG/4 ML VIAL 2 MG IV PUSH (08:34)
[2020-07-21] MEDS: FLUTICASONE PROPIONATE 0.05% NA SPR 16 GM BTL (*BKC) 1 SPRAY NASAL (08:53)
[2020-07-21] MEDS: ASPIRIN 81 MG ENTERIC TABLET PO (08:53)
[2020-07-21] MEDS: LORATADINE 10 MG TABLET PO (08:54)
[2020-07-21] MEDS: PANTOPRAZOLE 40 MG TABLET PO (08:54)
--- NOTE | 2020-07-21 10:39 | PC.NURSE ---
Recvd report from night nurse that pt had a soft BP warranting a 500 ml NS bolus which then led to pt having pulmonary edema. Pt was placed on BIPAP at settings of 21/10 (pt normal bipap settings are ). Quickly assessed pt who was resting comfortably in bed on bipap with no shortness of breath noted. Pt stated only pain from being in a small bed; pt could benefit from a chris bed. Dr. Al and Dr. Aldridge to see pt. Dr. Al ordered 2mg bumex IVP one time now and strongly considering dialysis for pt. Dr. Aldridge put in for transfer to IMU for pt to continuous bipap to assist pt with respiratory status. Pt had minimal urinary output last night of 50 mls. Morning medications including bumex given. Report given to Jacey at 0840. Attempted to call daughter to notify of transfer to IMU, but daughter's voice mail was full. Notified Lashell to tell Jacey about pt family being unable to reach.
[2020-07-21] MEDS: HEPARIN SODIUM 5,000 UNITS/ML VIAL 5000 UNITS SUB-Q ×2 (10:42→14:54)
[2020-07-21] MEDS: PERFLUTREN LIPID MICROSPHERES 1.5 ML VIAL DILUTED TO 10 ML TOTAL VOLUME IV PUSH (10:45)
--- NOTE | 2020-07-21 11:38 | PM.IMPN ---
Progress Note: A&P Assessment and Plan (1) Acute renal failure: Code(s): N17.9 - Acute kidney failure, unspecified Status: Acute (2) Venous stasis ulcer of right lower extremity: Code(s): I83.019 - Varicose veins of right lower extremity with ulcer of unspecified site; L97.919 - Non-pressure chronic ulcer of unspecified part of right lower leg with unspecified severity Status: Acute (3) Lymphedema of both lower extremities: Code(s): I89.0 - Lymphedema, not elsewhere classified Status: Acute (4) Rosacea: Code(s): L71.9 - Rosacea, unspecified Status: Acute (5) Chronic low back pain: Qualifiers: Back pain laterality: unspecified Sciatica presence: unspecified whether sciatica present Qualified Code(s): M54.5 - Low back pain; G89.29 - Other chronic pain Code(s): M54.5 - Low back pain; G89.29 - Other chronic pain Status: Acute (6) Chronic congestive heart failure: Qualifiers: Heart failure type: unspecified Qualified Code(s): I50.9 - Heart failure, unspecified Code(s): I50.9 - Heart failure, unspecified Status: Acute (7) Hypothyroidism: Qualifiers: Hypothyroidism type: acquired Qualified Code(s): E03.9 - Hypothyroidism, unspecified Code(s): E03.9 - Hypothyroidism, unspecified Status: Acute (8) Chronic venous insufficiency: Code(s): I87.2 - Venous insufficiency (chronic) (peripheral) Status: Acute (9) GERD without esophagitis: Code(s): K21.9 - Gastro-esophageal reflux disease without esophagitis Status: Acute (10) Dyslipidemia: Code(s): E78.5 - Hyperlipidemia, unspecified Status: Acute (11) CKD (chronic kidney disease) stage 3, GFR 30-59 ml/min: Qualifiers: Chronic kidney disease stage 3 subtype: stage 3b (GFR 30-44) Qualified Code(s): N18.32 - Chronic kidney disease, stage 3b Code(s): N18.3 - Chronic kidney disease, stage 3 (moderate) Status: Acute (12) Essential (primary) hypertension: Code(s): I10 - Essential (primary) hypertension Status: Acute (13) Peripheral polyneuropathy: Code(s): G62.9 - Polyneuropathy, unspecified Status: Acute (14) AMELIA (obstructive sleep apnea): Code(s): G47.33 - Obstructive sleep apnea (adult) (pediatric) Status: Acute Additional Plan # Acute on chronic renal failure stage III: baseline cr 1.7-2. currently 6.5. chronology of symptoms indicative of prerenal cause, however monica cause from his recent antibiotics, foot infection etc is possible as well. Urinalysis looks bland not suggestive of overt ATN. will continue gentle hydration as ordered and recommended by button grader at 50 cc/hr. urine studies eivewed. FeNA 0.7% FeUrea 12.4% suggestive of prerenal disease. urine eosinophil negative. arechiga in place. US kidney with no hydronephrosis. Strict I and O. CXR with bialteral effusion which is likely chronic, recent cxr compared and is very less congested comapred to recently. avoid nephrotoxic medications. hold quinapril stop alevel hold lasix Currenlty fluids on hold due to congestive changes. bumex ordered per nephrology. may need supportive dialysis until the creatinine imporves. # Aucte on chornic congestive heart failrue: diuretics restarted. congesive chagnes with fluid resuscitation. recheck echo in process. he had diastolic heart failure in . # hx of pericardial efffusion needing window in the past 2003 # bilateral diffuse lymphedema lower extrmeities: OT to see for lymphedema. # Right foot verrous changes needs wound care. will consult wound care. # Chronic low back pain # Chronic venous insufficiency # CKD (chronic kidney disease) stage 3, GFR 30-59 ml/min # Dyslipidemia # Essential (primary) hypertension: hypotensive overnight. hold bp medications. # GERD without esophagitis # Hypothyroidism: levothyroxine # AMELIA: on cpap at night.
--- NOTE | 2020-07-21 11:44 | PM.CNGS ---
Assessment and Plan Assessment and plan (1) Acute renal failure: Code(s): N17.9 - Acute kidney failure, unspecified Status: Acute Assessment and Plan: Acute on chronic renal failure. Nephrology has consulted us to place a tunnelled dialysis catheter today. Patient has been NPO. I have discussed the description of the procedure, risks, benefits, expected outcomes, and expected recovery with the patient in detail. All questions were answered. He agrees to proceed. I have discussed the patient's case and plan of care with Dr. Jose, who will add the patient onto the surgery schedule later today for placement of a tunnelled dialysis catheter. (2) CKD (chronic kidney disease) stage 3, GFR 30-59 ml/min: Qualifiers: Chronic kidney disease stage 3 subtype: stage 3b (GFR 30-44) Qualified Code(s): N18.32 - Chronic kidney disease, stage 3b Code(s): N18.3 - Chronic kidney disease, stage 3 (moderate) Status: Acute (3) CHF (congestive heart failure): Code(s): I50.9 - Heart failure, unspecified Status: Acute Assessment and Plan: The patient is a high risk surgical candidate due to his morbid obesity and multiple co-morbidities. (4) Morbid obesity with BMI of 50.0-59.9, adult: Code(s): E66.01 - Morbid (severe) obesity due to excess calories; Z68.43 - Body mass index [BMI] 50.0-59.9, adult Status: Acute (5) AMELIA (obstructive sleep apnea): Code(s): G47.33 - Obstructive sleep apnea (adult) (pediatric) Status: Acute (6) Lymphedema of both lower extremities: Code(s): I89.0 - Lymphedema, not elsewhere classified Status: Acute History of Present Illness Consult details Consult date: 07/21/20 Reason for consult: other (Placement of tunneled dialysis catheter) Requesting physician: Meng Al MD Narrative: This is a 70-year-old morbidly obese male with history of congestive heart failure, chronic kidney disease, hypertension, and previous pericardial window in 2010. He presented to the ER for evaluation of elevated creatinine on outpatient labs. He was recently treated for a foot infection with ciprofloxacin and clindamycin. Workup showed the patient to be in acute on chronic renal failure. Nephrology was consulted. They have evaluated the patient and tried diuresing. He still has minimal urine output. Nephrology is now requesting an urgent tunnelled dialysis catheter to be placed for the patient today, therefore our service was consulted. I am now seeing the patient in IMU. He has been NPO today. Reports having difficulties with lying flat for extended periods of time. No history of neck or chest trauma. Only previous surgery on the chest was a pericardial window in 2010. Review of Systems Review of Systems: All systems reviewed & are unremarkable except as noted in HPI and below Constitutional: Constitutional: Reports as per HPI, Denies fatigue and Denies fever(s) ENT: Reports Normal hearing present and Denies dizziness Cardiovascular: Cardiovascular: Denies chest pain, Reports leg edema (chronic lymphedema) and Reports dyspnea (chronic due to CHF, worse currently with fluid overload) Respiratory: Respiratory: Denies cough and Reports dyspnea Gastrointestinal: Gastrointestinal: Reports as per HPI, Reports no additional gastrointestinal complaints, Denies abdominal pain, Reports bloating, Denies constipation, Denies diarrhea, Denies nausea and Denies vomiting Integumentary/Breasts: Skin/Breast: Reports other (jackie. lower ext edema, dry skin) Neurologic: Denies focal weakness PMFSH Past Medical History Medical History Chronic congestive heart failure Review of his EMR last recorded Echocardiogram on 10/2017 showed EF 68% with grade II diastolic dysfunction. Chronic low back pain Chronic venous insufficiency CKD (chronic kidney disease) stage 3, GFR 30-59 ml/min Dyslipidemia Environmental
[2020-07-21 12:22] LABS: Hepatitis B Surface Antigen Negative (Negative)
--- NOTE | 2020-07-21 12:29 | WPDANESEPPF ---
Anes - Initial Pre Proc Eval Procedure: Operation Date: 07/21/20 13:00 Proposed Procedures p Insertion Tunneled Dialysis Catheter - Kandy Jose MD Date/Time: 07/21/20 12:29 Surgeon: Carlito Aldridge MD Pre Op Diagnosis: acute renal failure Patient Data Age: 70 Gender: M Height: 1.85 m Weight: 206.1 kg Last Vital Signs Temp 36.2 C L 07/21/20 09:27 Pulse 87 07/21/20 10:05 Resp 18 07/21/20 09:27 BP 113/58 L 07/21/20 09:27 Pulse Ox 96 07/21/20 09:27 Allergies Allergy/AdvReac Type Severity Reaction Status Date / Time Sulfa (Sulfonamide Allergy Mild Rash Verified 07/20/20 14:10 Antibiotics) Penicillins Allergy Unknown SWELLING Verified 07/20/20 14:10 codeine AdvReac Mild N/V Verified 07/20/20 14:10 hydrocodone AdvReac Mild N/V Verified 07/20/20 14:10 tramadol AdvReac Mild Nausea Verified 07/20/20 14:10 Home Medications Medication Instructions Recorded Confirmed Type aspirin 81 mg tablet,delayed 81 mg PO DAILY 04/07/19 07/20/20 History release furosemide 40 mg tablet 40 mg PO TID tablet 04/07/19 07/20/20 History levothyroxine 200 mcg tablet 200 mcg PO QAM tablet 04/07/19 07/20/20 History minoxidil 10 mg tablet 10 mg PO DAILY 04/07/19 07/20/20 History omeprazole magnesium 20 mg 20 mg PO DAILY 04/07/19 07/20/20 History tablet,delayed release quinapril 40 mg tablet 40 mg PO DAILY 04/07/19 07/20/20 History fluticasone propionate 50 1 spray INTRANASAL DAILY 07/12/20 07/20/20 History mcg/actuation nasal spray,suspension loratadine 10 mg tablet 10 mg PO DAILY 07/12/20 07/20/20 History Laboratory Tests 07/20/20 07/20/20 07/20/20 12:12 12:12 13:03 WBC RBC Hgb Hct MCV MCH MCHC RDW Plt Count MPV Immature Gran % (Auto) Neut % (Auto) Lymph % (Auto) [place] % (Auto) Eos % (Auto) Baso % (Auto) Lymph # (Auto) [place] # (Auto) Eos # (Auto) Baso # (Auto) Abs Immat Gran (auto) Absolute Neuts (auto) Absolute Nucleated RBC Nucleated RBC % ESR PT 16.3 Seconds H Seconds (11.1-14.7) INR 1.3 APTT 29.5 SECONDS SECONDS (22.3-36.8) Sodium 135 mmol/L L mmol/L (137-145) Potassium 4.2 mmol/L mmol/L (3.4-5.0) Chloride 96 mmol/L L mmol/L (98-107) Carbon Dioxide 26 mmol/L mmol/L (22-30) Anion Gap 13 mmol/L mmol/L (8-16) BUN 41 mg/dL H D mg/dL (9-20) Creatinine 6.50 mg/dL H mg/dL (0.7-1.3) Estim Creat Clear Calc 18 ml/min ml/min Estimated GFR 8 L (59 - ) Glucose 130 mg/dL H mg/dL (75-110) POC Capillary Glucose Calcium 8.6 mg/dL mg/dL (8.4-10.2) Phosphorus Total Bilirubin 0.9 mg/dL mg/dL (0.2-1.3) AST 28 U/L U/L (17-59) ALT 11 U/L U/L (4-50) Alkaline Phosphatase 71 U/L U/L (38-126) Total Creatine Kinase NT-Pro-B Natriuret Pep 91213 PG/ML H PG/ML (5-100) Total Protein 8.0 g/dL g/dL (6.3-8.2) Albumin 4.3 g/dL g/dL (3.5-5.1) Ztcrc-4-I[place]vnnuk Mevgv-6-Pluabbady Opii-2-Agusebfc Kebz-6-Izactshj Gamma Globulins Abnorm Protein Band 1 Abnorm Protein Band 3 PEP Interpretation Urine Color Yellow (Yellow) Urine Appearance Clear (Clear) Urine pH 5.0 (5.0-9.0) Ur Specific [place] 1.016 (1.001-1.035) Urine Protein 1+ mg/dL H mg/dL (Negative) Urine Glucose (UA) Negative mg/dL mg/dL (Negative) Urine Ketones Negative mg/dL mg/dL (Negative) Ur Bl
[2020-07-21 12:40] LABS: Hepatitis B Surface Anti Res Negative; Hepatitis C Virus Antibody Negative (Negative)
[2020-07-21] MEDS: SODIUM CHLORIDE 0.9% IV 500 ML 30 ML IV CONT (12:40)
--- NOTE | 2020-07-21 13:02 | PCOTNOTE ---
Attempted OT evaluation, per RN patient is going off the unit for surgery, will follow and attempt at later time.
--- NOTE | 2020-07-21 13:45 | WPDHPUPDATE1 ---
History and Physical Update Update Date/Time: 07/21/20 13:45 History and Physical has been reviewed, including an updated exam of the patient. There are NO changes in the patient's condition. Risks, benefits, and alternatives have been discussed and questions answered. Patient agrees to proceed with procedure.
[2020-07-21] MEDS: CLINDAMYCIN 900 MG/D5W 50 ML 900 MG/50 ML PIGGYBACK 50 MG IVPB (14:14)
[2020-07-21] MEDS: LIDO 1%/EPINEPHRINE 1:100,000 50 ML VIAL INFILTRATE (14:51)
[2020-07-21] MEDS: HEPARIN SODIUM, PORCINE 10,000 UNITS/10 ML VIAL 10000 UNITS IRRIGATION (14:53)
--- NOTE | 2020-07-21 15:03 | PM.PROC ---
Procedure Note - Detailed Date of procedure: 07/21/20 Pre-op diagnosis: acute renal failure end stage renal disease Post-op diagnosis: same Procedure performed: placement of RIJ tunneled HD catheter 32 cm under both U/S and fluroscopic guidance Description of procedure: Patient was taken to the operating room and placed in the supine position. After adequate induction of MAC anesthesia, the patient was prepped and draped in normal sterile fashion. A time-out was then done to verify the patient's identity as well as the procedure being performed. I began by using the SonoSite and locating the right internal jugular vein. Once this was done, I localized the overlying skin. I then made a small incision in the skin. I then gained access into the right internal jugular vein with an 18 gauge needle. At this point, I threaded the guidewire into the right internal jugular vein. Placement of the guidewire was confirmed by both ultrasound and fluoroscopic guidance. I then went ahead and measured the 32 cm tunneled dialysis catheter to our stick site in the right neck. I then localized the tract going from the right chest to the right neck. I then made a small incision in the right chest and tunneled the catheter to the right neck. I then serially dilated the right internal jugular vein under fluoroscopic guidance. Once adequately dilated, I placed the dilating sheath over the guidewire into the right internal jugular vein under fluoroscopic visualization. Once this was noted to be in good position, I removed both the guidewire and dilator, now just leaving the sheath in the vein. I then went ahead and fed the previously tunneled catheter into the sheath. Once the catheter was fed and positioned correctly, I went ahead and peeled the sheath away. Final fluoroscopic view showed the catheter in good position from its insertion point in the right chest to its termination in the right atrial caval junction. It was noted there was no kinking of the catheter. I was able to easily draw and flush from both ports of the catheter. I placed 2.4 and 2.4 cc of final heparin flush into each port as marked. The catheter was then sutured into place and the incision in the neck was closed with 4 O Monocryl subcuticular suture. The patient tolerated the procedure well and will be transferred to the recovery room in stable condition. Sterile dressing was placed on the catheter. Portable chest x-ray will be done in the recovery. Implants: 32 cm duraflow tunneled HD cath Anesthesia: GLMA Surgeon: Kandy Jose MD Estimated blood loss (mL): 15 Drains: No Packing: No Pathology: none sent Complications: No immediate complications Condition: stable Disposition: PACU Findings: first stick access in RIJ under U/S guidance
[2020-07-21] MEDS: ONDANSETRON INJ 4 MG/2 ML VIAL IV PUSH (15:30)
--- NOTE | 2020-07-21 16:04 | SUR.PHASEI ---
O2 removed at 1532.
--- NOTE | 2020-07-21 16:04 | SUR.PHASEI ---
RN called Dr. Lawson for more antinausea medication and was told to send patient back to the floor that it's related to his renal failure not anesthesia.
[2020-07-21] MEDS: TOLNAFTATE 1% POWDER 45 GM BTL 1 APPLIC TOPICAL (16:31)
[2020-07-21] MEDS: ACETAMINOPHEN 325 MG TABLET 650 MG PO ×2 (17:05→22:50)
--- NOTE | 2020-07-21 18:10 | ECHO_ITS ---
Patient Info Name: Irwin Cyr Age: 70 years : 1950 Gender: Male Ht: 73 in Wt: 454 lbs BSA: 3.38 m2 HR: 88 bpm BP: 110 / 60 mmHg Heart Rhythm: Sinus Rhythm Technical Quality: Good Exam Date: 07/21/2020 10:16 AM Exam Location: [facility] Patient Status: Inpatient Admit Date: 07/20/2020 Staff Ordering Physician: Meng Al MD Medical Claims Analyst: Jay Hawkins RDCS, RT Attending Provider: Carlito Aldridge MD Referring Physician: Mikaela DAN; Exam Type: CA echo doppler color flow Study Info Indications I50.9 - Heart failure, unspecified Complete two-dimensional, color flow and Doppler transthoracic echocardiogram is performed with contrast to opacify the left ventricle and to improve the deliniation of the left ventricle endocardial borders. Summary 1. Left ventricular chamber dimension is normal. 2. Left ventricular systolic function is normal, estimated at 60-65%. 3. There is mildly increased left ventricular wall thickness. 4. The left ventricular diastolic function is normal. 5. Right ventricular chamber dimension is severely enlarged. 6. Right ventricular systolic function is reduced. 7. Right atrial chamber dimension is mildly enlarged. 8. Left atrial chamber dimension is mildly enlarged. 9. There is mild tricuspid valve regurgitation. 10. Moderate pulmonary hypertension, estimated pulmonary arterial systolic pressure is 51 mmHg. Left Ventricle Left ventricular chamber dimension is normal. Left ventricular systolic function is normal, estimated at 60-65%. There is mildly increased left ventricular wall thickness. The left ventricular diastolic function is normal. Right Ventricle Right ventricular chamber dimension is severely enlarged. Right ventricular systolic function is reduced. Left Atria Left atrial chamber dimension is mildly enlarged. Right Atria Right atrial chamber dimension is mildly enlarged. Aortic Valve The aortic valve is probable trileaflet. There is mild aortic valve sclerosis. There is no aortic valve stenosis. There is trace aortic valve regurgitation. Pulmonic Valve The pulmonic valve is normal. There is no pulmonic valve stenosis. There is trace pulmonic regurgitation. Mitral Valve The mitral valve has calcified annulus. There is no mitral valve stenosis. There is trace mitral valve regurgitation. Tricuspid Valve The tricuspid valve leaflets are normal. There is no significant tricuspid valve stenosis. There is mild tricuspid valve regurgitation. Moderate pulmonary hypertension, estimated pulmonary arterial systolic pressure is 51 mmHg. Pericardium/Pleural The pericardium appears normal. There is no pericardial effusion. Inferior Vena Cava Dilated inferior vena cava with <50% collapse upon inspiration consistent with elevated right atrial pressure, 15 mmHg. Aorta The aortic root size at the sinus of Valsalva is normal. The prox ascending aorta size is normal. Left Ventricular Outflow Tract Name Value Normal LVOT 2D LVOT Diameter 2.1 cm LVOT Doppler LVOT Peak Gradient 1 mmHg
[2020-07-22] VITALS (29 sets, daily range): BP systolic 102–147; BP diastolic 50–71; PULSE 55–87; RESP 12–22; TEMP 36–36.7; O2SAT 96–100
[2020-07-22 05:03] LABS: Hematocrit 33.3 % (42.0-52.0); Hemoglobin 9.8 g/dL (14.0-18.0); Mean Corpuscular HGB Conc 29.4 g/dl (32-36); Mean Corpuscular Hemoglobin 24.1 pg (26-34); Mean Corpuscular Volume 81.8 fl (80-100); Platelet Count Result 354 k/mm3 (150-375); Red Blood Count 4.07 M/mm3 (4.6-6.20); Red Cell Distribution Width 16.3 % (11.5-14.5); White Blood Count 6.4 K/mm3 (4.5-10.0)
[2020-07-22 05:22] LABS: Potassium 4.4 mmol/L (3.4-5.0)
[2020-07-22 05:30] LABS: Anion Gap 9 mmol/L (8-16); Blood Urea Nitrogen 41 mg/dL (9-20); Calcium 8.2 mg/dL (8.4-10.2); Carbon Dioxide 27 mmol/L (22-30); Chloride 99 mmol/L (98-107); Estimated CRCL calculation 21 ml/min; Estimated Glomerular Filt Rate 10; Glucose 88 mg/dL (75-110); Sodium 135 mmol/L (137-145)
[2020-07-22] MEDS: LEVOTHYROXINE SODIUM 100 MCG TABLET 200 MCG PO (06:55)
[2020-07-22] MEDS: LORATADINE 10 MG TABLET PO (08:40)
[2020-07-22] MEDS: PANTOPRAZOLE 40 MG TABLET PO (08:40)
[2020-07-22] MEDS: FLUTICASONE PROPIONATE 0.05% NA SPR 16 GM BTL (*BKC) 1 SPRAY NASAL (08:40)
[2020-07-22] MEDS: ASPIRIN 81 MG ENTERIC TABLET PO (08:40)
[2020-07-22] MEDS: TOLNAFTATE 1% POWDER 45 GM BTL 1 APPLIC TOPICAL (08:40)
--- NOTE | 2020-07-22 08:40 | PCPTNOTE ---
Attempted PT eval. Pt going to dialysis. Will try again at later time.
--- NOTE | 2020-07-22 09:14 | PCOTNOTE ---
Attempted OT eval. Pt going to dialysis. Will try again at later time.
--- NOTE | 2020-07-22 11:13 | PM.PNNEP ---
Progress Note: A&P Assessment and Plan (1) CKD (chronic kidney disease) stage 3, GFR 30-59 ml/min: Qualifiers: Chronic kidney disease stage 3 subtype: stage 3b (GFR 30-44) Qualified Code(s): N18.32 - Chronic kidney disease, stage 3b Code(s): N18.3 - Chronic kidney disease, stage 3 (moderate) Status: Acute Assessment and Plan: Irwin has chronic kidney disease. His baseline GFR is in the low 30s, giving him stage IIIB chronic kidney disease. Most likely this is due to hypertension and chronic pre renal azotemia due to his poorly functioning heart. (2) Acute renal failure: Code(s): N17.9 - Acute kidney failure, unspecified Status: Acute Assessment and Plan: The patient has JENA Normal size kidneys without hydronephrosis. He does have hepatic steatosis and ascites. Urine electrolytes show pre renal azotemia Urine eosinophils are negative. Echo shows good LV function but moderate pulmonary hypertension and large right ventricle with reduced RV function. This probably explains the chronic edema. Why his renal function is so poor is unclear. It is possible that he has pre renal azotemia from the poorly functioning RV. He does have eosinophilia. It is probably reasonable to try steroids empirically instead of doing a biopsy. Will try this over the weekend and reassess on Saturday. (3) CHF (congestive heart failure): Code(s): I50.9 - Heart failure, unspecified Status: Acute Assessment and Plan: Echo Shows right-sided heart failure. (4) Lymphedema of both lower extremities: Code(s): I89.0 - Lymphedema, not elsewhere classified Status: Acute Assessment and Plan: This is a chronic problem. He has very thickened skin in is highly likely to get recurrent cellulitis because of this. Currently, he does not have a white count or a fever. (5) Essential (primary) hypertension: Code(s): I10 - Essential (primary) hypertension Status: Acute Assessment and Plan: His blood pressure is actually a bit low. He is off his minoxidil. (6) GERD without esophagitis: Code(s): K21.9 - Gastro-esophageal reflux disease without esophagitis Status: Acute Assessment and Plan: He is on pantoprazole (7) AMELIA (obstructive sleep apnea): Code(s): G47.33 - Obstructive sleep apnea (adult) (pediatric) Status: Acute Assessment and Plan: He uses a CPAP machine per religiously (8) Dyslipidemia: Code(s): E78.5 - Hyperlipidemia, unspecified Status: Acute Subjective Date/time seen: 07/22/20 11:13 Interval history: The patient Had dialysis yesterday evening. His blood pressure tolerated it quite well. 1L was removed. Today the patient feels better. He is off the BiPAP machine. He denies shortness of breath. His blood pressure is better today. He is on dialysis and tolerating it well. His ultrafiltration is set to remove about 3L net. The patient was seen at 10:30 a.m. Exam Narrative: Exam Narrative: WDWN in NAD skin no acute rash head ncat lungs decreased breath sounds at the bases cor reg no rub abd BS+ nontender and soft ext 2+ edema with chronic venous stasis changes. Objective Data Vital Signs Vital Signs: Vital Signs - 24 hr 07/21/20 12:00 07/21/20 12:17 07/21/20 15:08 Temperature 36.4 C L Pulse Rate 89 89 86 Respiratory Rate 18 10 L Blood Pressure 100/58 L 137/64 Pulse Oximetry 94 99 97 07/21/20 15:20 07/21/20 15:35 07/21/20 15:50 Temperature Pulse Rate 86 86 90 Respiratory Rate 17 18 13 Blood Pressure 125/60 113/48 L 122/83 Pulse Oximetry 98 92 95 07/21/20 16:00 07/21/20 16:05 07/21/20 16:20 Temperature Pulse Rate 82 90 89 Respiratory Rate 20 25 H 16 Blood Pressure 116/53 L 92/61 L Pulse Oximetry 97 93 94 07/21/20 16:59 07/21/20 18:00 07/21/20 18:03 Temperature 36.2 C L 37.0 C Pulse Rate 93 86 85 Respirat
--- NOTE | 2020-07-22 13:33 | P.PNAN_ITS ---
Anes - Prog Note Post-Op Date/Time: 07/22/20 13:33 Cardiovascular status: normal Respiratory status: normal Airway patency: baseline Mental status: baseline Post-Op hydration status: normal Vital Signs: Last Vital Signs Temp 36.4 C L 07/22/20 09:05 Pulse 72 07/22/20 12:00 Resp 22 H 07/22/20 09:05 BP 136/50 L 07/22/20 11:45 Pulse Ox 99 07/22/20 13:05 Pain Score (VAS): no complaints I/O: Intake & Output 07/21/20 07/22/20 07/22/20 23:59 07:59 15:59 Intake Total 250 350 Output Total 1283 300 Balance -1033 50 Laboratory Tests 07/22/20 04:31 07/22/20 04:31 07/21/20 07/22/20 07/22/20 23:08 04:31 04:31 WBC 6.4 RBC 4.07 L Hgb 9.8 L Hct 33.3 L MCV 81.8 MCH 24.1 L MCHC 29.4 L RDW 16.3 H Plt Count 354 MPV 11.0 H Sodium 135 L Potassium 4.4 Chloride 99 Carbon Dioxide 27 Anion Gap 9 BUN 41 H Creatinine 5.60 H Estim Creat Clear Calc 21 Estimated GFR 10 L Glucose 88 Calcium 8.2 L Ur SAGE Interpret 24 hr Pending Free [place] & Lambda LC Pending Post-procedural complaints: none Patient Feedback: Patient satisfied with anesthetic care.
--- NOTE | 2020-07-22 16:32 | PM.IMPN ---
Progress Note: A&P Assessment and Plan (1) Acute renal failure: Code(s): N17.9 - Acute kidney failure, unspecified Status: Acute (2) Venous stasis ulcer of right lower extremity: Code(s): I83.019 - Varicose veins of right lower extremity with ulcer of unspecified site; L97.919 - Non-pressure chronic ulcer of unspecified part of right lower leg with unspecified severity Status: Acute (3) Lymphedema of both lower extremities: Code(s): I89.0 - Lymphedema, not elsewhere classified Status: Acute (4) Rosacea: Code(s): L71.9 - Rosacea, unspecified Status: Acute (5) Chronic low back pain: Qualifiers: Back pain laterality: unspecified Sciatica presence: unspecified whether sciatica present Qualified Code(s): M54.5 - Low back pain; G89.29 - Other chronic pain Code(s): M54.5 - Low back pain; G89.29 - Other chronic pain Status: Acute (6) Chronic congestive heart failure: Qualifiers: Heart failure type: unspecified Qualified Code(s): I50.9 - Heart failure, unspecified Code(s): I50.9 - Heart failure, unspecified Status: Acute (7) Hypothyroidism: Qualifiers: Hypothyroidism type: acquired Qualified Code(s): E03.9 - Hypothyroidism, unspecified Code(s): E03.9 - Hypothyroidism, unspecified Status: Acute (8) Chronic venous insufficiency: Code(s): I87.2 - Venous insufficiency (chronic) (peripheral) Status: Acute (9) GERD without esophagitis: Code(s): K21.9 - Gastro-esophageal reflux disease without esophagitis Status: Acute (10) Dyslipidemia: Code(s): E78.5 - Hyperlipidemia, unspecified Status: Acute (11) CKD (chronic kidney disease) stage 3, GFR 30-59 ml/min: Qualifiers: Chronic kidney disease stage 3 subtype: stage 3b (GFR 30-44) Qualified Code(s): N18.32 - Chronic kidney disease, stage 3b Code(s): N18.3 - Chronic kidney disease, stage 3 (moderate) Status: Acute (12) Essential (primary) hypertension: Code(s): I10 - Essential (primary) hypertension Status: Acute (13) Peripheral polyneuropathy: Code(s): G62.9 - Polyneuropathy, unspecified Status: Acute (14) AMELIA (obstructive sleep apnea): Code(s): G47.33 - Obstructive sleep apnea (adult) (pediatric) Status: Acute Additional Plan # Acute on chronic renal failure stage III: baseline cr 1.7-2. currently 6.5. chronology of symptoms indicative of prerenal cause, however moncia cause from his recent antibiotics, foot infection etc is possible as well. Urinalysis looks bland not suggestive of overt ATN. will continue gentle hydration as ordered and recommended by steel erector at 50 cc/hr. urine studies eivewed. FeNA 0.7% FeUrea 12.4% suggestive of prerenal disease. urine eosinophil negative. arechiga in place. US kidney with no hydronephrosis. Strict I and O. CXR with bialteral effusion which is likely chronic, recent cxr compared and is very less congested comapred to recently. avoid nephrotoxic medications. hold quinapril stop alevel hold lasix Currenlty fluids on hold due to congestive changes. bumex ordered per nephrology. started on HD 07/21, repeat HD again today. motnior urine output. dialysis prn for until renal function recovers. # Aucte on chornic congestive heart failrue: diuretics restarted. congesive chagnes with fluid resuscitation. recheck echo in process. he had diastolic heart failure in . echo with LVEF 60-65% ,mildly increased LV wall thickeness, RV systolic function reduced with PASP 51 mmHg # hx of pericardial efffusion needing window in the past 2003 # bilateral diffuse lymphedema lower extrmeities: OT to see for lymphedema. # Right foot verrous changes needs wound care. will consult wound care. # Chronic low back pain # Chronic venous insufficiency # CKD (chronic kidney disease) stage 3, GFR 30-59 ml/min # Dyslipidemia # Essenti
[2020-07-22] MEDS: HEPARIN SODIUM 5,000 UNITS/ML VIAL 5000 UNITS SUB-Q (20:50)
[2020-07-22] MEDS: WATER FOR IRRIGATION, STERILE 1,000 ML BOTTLE 1000 ML (20:59)
[2020-07-22] MEDS: ACETAMINOPHEN 325 MG TABLET 650 MG PO ×2 (21:24→22:25)
[2020-07-23] VITALS (32 sets, daily range): BP systolic 95–170; BP diastolic 32–85; PULSE 57–95; RESP 13–21; TEMP 36–37; O2SAT 93–97
[2020-07-23 04:52] LABS: Hematocrit 33.6 % (42.0-52.0); Hemoglobin 9.9 g/dL (14.0-18.0); Mean Corpuscular HGB Conc 29.5 g/dl (32-36); Mean Corpuscular Hemoglobin 24.9 pg (26-34); Mean Corpuscular Volume 84.4 fl (80-100); Mean Platelet Volume 10.7 fl (7.4-10.4); Platelet Count Result 331 k/mm3 (150-375); Red Blood Count 3.98 M/mm3 (4.6-6.20); Red Cell Distribution Width 16.1 % (11.5-14.5); White Blood Count 7.1 K/mm3 (4.5-10.0)
[2020-07-23 05:05] LABS: Albumin Level 3.8 g/dL (3.5-5.1); Anion Gap 9 mmol/L (8-16); Blood Urea Nitrogen 37 mg/dL (9-20); Calcium 8.4 mg/dL (8.4-10.2); Carbon Dioxide 32 mmol/L (22-30); Chloride 97 mmol/L (98-107); Estimated CRCL calculation 23 ml/min; Estimated Glomerular Filt Rate 11; Glucose 94 mg/dL (75-110); Phosphorus 6.4 mg/dL (2.5-4.5); Potassium 4.4 mmol/L (3.4-5.0); Sodium 138 mmol/L (137-145)
[2020-07-23] MEDS: LEVOTHYROXINE SODIUM 100 MCG TABLET 200 MCG PO (06:16)
[2020-07-23] MEDS: FLUTICASONE PROPIONATE 0.05% NA SPR 16 GM BTL (*BKC) 1 SPRAY NASAL (07:28)
[2020-07-23] MEDS: TOLNAFTATE 1% POWDER 45 GM BTL 1 APPLIC TOPICAL (07:28)
[2020-07-23] MEDS: ASPIRIN 81 MG ENTERIC TABLET PO (07:29)
[2020-07-23] MEDS: PANTOPRAZOLE 40 MG TABLET PO (07:29)
[2020-07-23] MEDS: predniSONE 20 MG TABLET 80 MG PO (07:29)
[2020-07-23] MEDS: HEPARIN SODIUM 5,000 UNITS/ML VIAL 5000 UNITS SUB-Q ×2 (07:29→21:22)
[2020-07-23] MEDS: LORATADINE 10 MG TABLET PO (07:29)
--- NOTE | 2020-07-23 10:23 | PM.PNNEP ---
Progress Note: A&P Assessment and Plan (1) CKD (chronic kidney disease) stage 3, GFR 30-59 ml/min: Qualifiers: Chronic kidney disease stage 3 subtype: stage 3b (GFR 30-44) Qualified Code(s): N18.32 - Chronic kidney disease, stage 3b Code(s): N18.3 - Chronic kidney disease, stage 3 (moderate) Status: Acute Assessment and Plan: Irwin has chronic kidney disease. His baseline GFR is in the low 30s, giving him stage IIIB chronic kidney disease. Most likely this is due to hypertension and chronic pre renal azotemia due to his poorly functioning heart. (2) Acute renal failure: Code(s): N17.9 - Acute kidney failure, unspecified Status: Acute Assessment and Plan: The patient has JENA Normal size kidneys without hydronephrosis. He does have hepatic steatosis and ascites. Urine electrolytes show pre renal azotemia Urine eosinophils are negative. He does have peripheral eosinophilia Echo shows good LV function but moderate pulmonary hypertension and large right ventricle with reduced RV function. This probably explains the chronic edema. 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 He is getting dialysis now to get fluid off and improve kidney poisons. 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 . Will hold off on dialysis tomorrow and see how he does. (3) CHF (congestive heart failure): Code(s): I50.9 - Heart failure, unspecified Status: Acute Assessment and Plan: Echo Shows right-sided heart failure. (4) Lymphedema of both lower extremities: Code(s): I89.0 - Lymphedema, not elsewhere classified Status: Acute Assessment and Plan: This is a chronic problem. He has very thickened skin in is highly likely to get recurrent cellulitis because of this. Currently, he does not have a white count or a fever. (5) Essential (primary) hypertension: Code(s): I10 - Essential (primary) hypertension Status: Acute Assessment and Plan: His blood pressure is actually a bit low. He is off his minoxidil. (6) GERD without esophagitis: Code(s): K21.9 - Gastro-esophageal reflux disease without esophagitis Status: Acute Assessment and Plan: He is on pantoprazole (7) AMELIA (obstructive sleep apnea): Code(s): G47.33 - Obstructive sleep apnea (adult) (pediatric) Status: Acute Assessment and Plan: He uses a CPAP machine per religiously (8) Dyslipidemia: Code(s): E78.5 - Hyperlipidemia, unspecified Status: Acute Subjective Date/time seen: 07/23/20 10:23 Interval history: The patient is on dialysis now. He is tolerating it well. Blood pressure is handling the 3L ultrafiltration goal Review of Systems Respiratory: Respiratory: Reports no additional respiratory complaints Gastrointestinal: Gastrointestinal: Reports no additional gastrointestinal complaints Genitourinary: Genitourinary: Reports no additional male genitourinary complaints Musculoskeletal: Musculoskeletal: Reports no additional musculoskeletal complaints Exam Narrative: Exam Narrative: WDWN in NAD skin no acute rash head ncat lungs decreased breath sounds at the bases cor reg no rub or gallop abd BS+ nontender and soft ext 2+ edema with chronic venous stasis changes. Not much of a dent in his edema. Objective Data Vital Signs Vital Signs: Vital Signs - 24 hr 07/22/20 10:30 07/22/20 10:45 07/22/20 11:00 Temperature Pulse Rate 74 68 71 Respiratory Rate Blood Pressure 107/50 L 135/65 136/63 Pulse Oximetry 07/22/20 11:15 07/22/20 11:30 07/22/20 11:45 Temperature Pulse Rate 73 72 72 Respiratory Rate Blood Pressure 126/63 125/53 L 136/50 L Pulse Oximetry 07/22/20 12:00 07/22/20 12:30 07/22/20 13:00 Temperature 36.7 C Pulse Rate 67 65 68 Respiratory Rate 22 H Bloo
--- NOTE | 2020-07-23 12:52 | PM.IMPN ---
Progress Note: A&P Assessment and Plan (1) Acute renal failure: Code(s): N17.9 - Acute kidney failure, unspecified Status: Acute (2) Venous stasis ulcer of right lower extremity: Code(s): I83.019 - Varicose veins of right lower extremity with ulcer of unspecified site; L97.919 - Non-pressure chronic ulcer of unspecified part of right lower leg with unspecified severity Status: Acute (3) Lymphedema of both lower extremities: Code(s): I89.0 - Lymphedema, not elsewhere classified Status: Acute (4) Rosacea: Code(s): L71.9 - Rosacea, unspecified Status: Acute (5) Chronic low back pain: Qualifiers: Back pain laterality: unspecified Sciatica presence: unspecified whether sciatica present Qualified Code(s): M54.5 - Low back pain; G89.29 - Other chronic pain Code(s): M54.5 - Low back pain; G89.29 - Other chronic pain Status: Acute (6) Chronic congestive heart failure: Qualifiers: Heart failure type: unspecified Qualified Code(s): I50.9 - Heart failure, unspecified Code(s): I50.9 - Heart failure, unspecified Status: Acute (7) Hypothyroidism: Qualifiers: Hypothyroidism type: acquired Qualified Code(s): E03.9 - Hypothyroidism, unspecified Code(s): E03.9 - Hypothyroidism, unspecified Status: Acute (8) Chronic venous insufficiency: Code(s): I87.2 - Venous insufficiency (chronic) (peripheral) Status: Acute (9) GERD without esophagitis: Code(s): K21.9 - Gastro-esophageal reflux disease without esophagitis Status: Acute (10) Dyslipidemia: Code(s): E78.5 - Hyperlipidemia, unspecified Status: Acute (11) CKD (chronic kidney disease) stage 3, GFR 30-59 ml/min: Qualifiers: Chronic kidney disease stage 3 subtype: stage 3b (GFR 30-44) Qualified Code(s): N18.32 - Chronic kidney disease, stage 3b Code(s): N18.3 - Chronic kidney disease, stage 3 (moderate) Status: Acute (12) Essential (primary) hypertension: Code(s): I10 - Essential (primary) hypertension Status: Acute (13) Peripheral polyneuropathy: Code(s): G62.9 - Polyneuropathy, unspecified Status: Acute (14) AMELIA (obstructive sleep apnea): Code(s): G47.33 - Obstructive sleep apnea (adult) (pediatric) Status: Acute Additional Plan # Acute on chronic renal failure stage III: baseline cr 1.7-2. currently 6.5. chronology of symptoms indicative of prerenal cause, however monica cause from his recent antibiotics, foot infection etc is possible as well. Urinalysis looks bland not suggestive of overt ATN. will continue gentle hydration as ordered and recommended by electrode cleaner at 50 cc/hr. urine studies eivewed. FeNA 0.7% FeUrea 12.4% suggestive of prerenal disease. urine eosinophil negative. arechiga in place. US kidney with no hydronephrosis. Strict I and O. CXR with bialteral effusion which is likely chronic, recent cxr compared and is very less congested comapred to recently. avoid nephrotoxic medications. hold quinapril stop alevel hold lasix Currenlty fluids on hold due to congestive changes. bumex ordered per nephrology. started on HD 07/21, repeat HD 07/22 adn 07/23. motnior urine output. still oliguric. dialysis prn for until renal function recovers. on prednisone for possible allergic interstitial nephritis. urine eosionophils negative. though peripheral eosinophilia present # Aucte on chornic congestive heart failrue: diuretics restarted. congesive chagnes with fluid resuscitation. recheck echo in process. he had diastolic heart failure in . echo with LVEF 60-65% ,mildly increased LV wall thickeness, RV systolic function reduced with PASP 51 mmHg # hx of pericardial efffusion needing window in the past 2003 # bilateral diffuse lymphedema lower extrmeities: OT to see for lymphedema. # Right foot verrous changes needs wound care. will consult wound care.
[2020-07-23] MEDS: ACETAMINOPHEN 325 MG TABLET 650 MG PO (15:56)
[2020-07-24] VITALS (17 sets, daily range): BP systolic 93–159; BP diastolic 44–80; PULSE 63–87; RESP 16–21; TEMP 36.1–36.7; O2SAT 93–99
[2020-07-24 02:37] LABS: Osmolality, Urine 283 mOsm/kg (50-1200)
[2020-07-24 05:05] LABS: Lambda Light Chain 42.5 mg/L (5.7-26.3)
[2020-07-24 05:14] LABS: Hematocrit 34.9 % (42.0-52.0); Hemoglobin 10.2 g/dL (14.0-18.0); Mean Corpuscular HGB Conc 29.2 g/dl (32-36); Mean Corpuscular Hemoglobin 24.8 pg (26-34); Mean Corpuscular Volume 84.7 fl (80-100); Mean Platelet Volume 11.2 fl (7.4-10.4); Platelet Count Result 339 k/mm3 (150-375); Red Blood Count 4.12 M/mm3 (4.6-6.20); White Blood Count 6.7 K/mm3 (4.5-10.0)
[2020-07-24 05:29] LABS: Anion Gap 5 mmol/L (8-16); Blood Urea Nitrogen 32 mg/dL (9-20); Calcium 8.6 mg/dL (8.4-10.2); Carbon Dioxide 36 mmol/L (22-30); Chloride 98 mmol/L (98-107); Estimated CRCL calculation 30 ml/min; Estimated Glomerular Filt Rate 15; Glucose 116 mg/dL (75-110); Potassium 4.8 mmol/L (3.4-5.0); Sodium 139 mmol/L (137-145)
[2020-07-24] MEDS: LEVOTHYROXINE SODIUM 100 MCG TABLET 200 MCG PO (06:03)
[2020-07-24] MEDS: ACETAMINOPHEN 325 MG TABLET 650 MG PO ×2 (06:07→22:17)
[2020-07-24 06:14] LABS: Eosinophils Absolute Manual 0.06 K/mm3 (0.02-0.5); Eosinophils Percent Manual 1 % (0-4); Monocytes Absolute Manual 0.53 K/mm3 (0.1-0.90); Monocytes Percent Manual 8 % (3-9); Neutrophils Percent Manual 82 % (46-73); Platelet Estimate Adequate (Adequate); Total Cells Counted 100
[2020-07-24 06:15] LABS: Hypochromasia 1+ (NORMAL)
[2020-07-24] MEDS: PANTOPRAZOLE 40 MG TABLET PO (08:22)
[2020-07-24] MEDS: predniSONE 20 MG TABLET 80 MG PO (08:22)
[2020-07-24] MEDS: ASPIRIN 81 MG ENTERIC TABLET PO (08:22)
[2020-07-24] MEDS: LORATADINE 10 MG TABLET PO (08:22)
[2020-07-24] MEDS: HEPARIN SODIUM 5,000 UNITS/ML VIAL 5000 UNITS SUB-Q ×2 (08:23→20:18)
[2020-07-24] MEDS: FLUTICASONE PROPIONATE 0.05% NA SPR 16 GM BTL (*BKC) 1 SPRAY NASAL (08:23)
[2020-07-24] MEDS: TOLNAFTATE 1% POWDER 45 GM BTL 1 APPLIC TOPICAL (08:23)
--- NOTE | 2020-07-24 08:43 | PM.PNNEP ---
Progress Note: A&P Assessment and Plan (1) CKD (chronic kidney disease) stage 3, GFR 30-59 ml/min: Qualifiers: Chronic kidney disease stage 3 subtype: stage 3b (GFR 30-44) Qualified Code(s): N18.32 - Chronic kidney disease, stage 3b Code(s): N18.3 - Chronic kidney disease, stage 3 (moderate) Status: Acute Assessment and Plan: Irwin has chronic kidney disease. His baseline GFR is in the low 30s, giving him stage IIIB chronic kidney disease. Most likely this is due to hypertension and chronic pre renal azotemia due to his poorly functioning heart. (2) Acute renal failure: Code(s): N17.9 - Acute kidney failure, unspecified Status: Acute Assessment and Plan: The patient has JENA Normal size kidneys without hydronephrosis. He does have hepatic steatosis and ascites. Urine electrolytes show pre renal azotemia Urine eosinophils are negative. He does have peripheral eosinophilia Echo shows good LV function but moderate pulmonary hypertension and large right ventricle with reduced RV function. This probably explains the chronic edema. 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 He is on steroids. We can start weaning these soon. We have removed fluid to keep him out of pulmonary edema. He still has a lot of swelling which we probably will never get rid of because of his right-sided heart failure. Will not do dialysis today. Tomorrow dialysis will be a check. We will see how his urine output is in his numbers are. Dr. Longo is back tomorrow. (3) CHF (congestive heart failure): Code(s): I50.9 - Heart failure, unspecified Status: Acute Assessment and Plan: Echo Shows right-sided heart failure. (4) Lymphedema of both lower extremities: Code(s): I89.0 - Lymphedema, not elsewhere classified Status: Acute Assessment and Plan: This is a chronic problem. He has very thickened skin in is highly likely to get recurrent cellulitis because of this. Currently, he does not have a white count or a fever. (5) Essential (primary) hypertension: Code(s): I10 - Essential (primary) hypertension Status: Acute Assessment and Plan: His blood pressure is actually a bit low. He is off his minoxidil. (6) GERD without esophagitis: Code(s): K21.9 - Gastro-esophageal reflux disease without esophagitis Status: Acute Assessment and Plan: He is on pantoprazole (7) AMELIA (obstructive sleep apnea): Code(s): G47.33 - Obstructive sleep apnea (adult) (pediatric) Status: Acute Assessment and Plan: He uses a CPAP machine per religiously (8) Dyslipidemia: Code(s): E78.5 - Hyperlipidemia, unspecified Status: Acute Subjective Date/time seen: 07/24/20 08:43 Interval history: The patient is resting comfortably in bed. He finished his dialysis yesterday without event. 4L removed. Review of Systems Cardiovascular: Cardiovascular: Reports no additional cardiovascular complaints Respiratory: Respiratory: Reports no additional respiratory complaints Gastrointestinal: Gastrointestinal: Reports no additional gastrointestinal complaints Genitourinary: Genitourinary: Reports no additional male genitourinary complaints Exam Narrative: Exam Narrative: WDWN in NAD skin no acute rash head ncat lungs decreased breath sounds at the bases cor reg no rub or gallop abd BS+ nontender and soft ext 2+ edema with chronic venous stasis changes. Not much of a dent in his edema. Objective Data Vital Signs Vital Signs: Vital Signs - 24 hr 07/23/20 09:00 07/23/20 09:15 07/23/20 09:30 Temperature Pulse Rate 75 74 78 Respiratory Rate Blood Pressure 147/75 H 150/84 H 136/85 Pulse Oximetry 07/23/20 09:45 07/23/20 10:00 07/23/20 10:15 Temperature Pulse Rate 81 74 74 Respiratory Rate Blood Pressure
--- NOTE | 2020-07-24 10:39 | PM.PROC ---
Procedure Note - Detailed Date of procedure: 07/24/20 Pre-op diagnosis: Bleeding from dialysis catheter bleeding from dialysis catheter Post-op diagnosis: same Procedure performed: control bleeding dialysis catheter Description of procedure: patient was seen in his hospital bed in the intermediate care unit. He had oozing of blood from the exit site of his tunneled dialysis catheter for well over 24 hours. He had a large clot underneath the transparent dressing. The dressing was removed and using sterile technique, clot was removed from all around the catheter. I then prepped the entire area with Betadine. Sterile gloves and sterile instruments were then used. Local anesthetic using 1% lidocaine with epinephrine was infiltrated around the exit site of the catheter and the retaining sutures. The sutures were then removed. I removed the remaining bits of clot from around the catheter and into the tract of the catheter. A 3 0 nylon suture was then used to snuggly close the exit site skin more securely to the catheter. I observed this for couple of minutes and no additional bleeding was noted. A hemostatic disc was then placed over the exit site of the catheter. Three 0 nylon was used to secure the flange of the catheter to the skin as it had been previously. A sterile transparent dressing was placed. Patient tolerated the procedure well. Anesthesia: local ( 1% lidocaine with epinephrine) Surgeon: Bhaskar Cuenca MD Estimated blood loss (mL): 5 Drains: No Packing: No Pathology: none sent Complications: None Condition: stable Disposition: no change Findings: bleeding from exit site of tunneled central venous catheter for dialysis.
--- NOTE | 2020-07-24 12:54 | PM.IMPN ---
Progress Note: A&P Additional Plan # Acute on chronic renal failure stage III: baseline cr 1.7-2. currently 6.5. chronology of symptoms indicative of prerenal cause, however monica cause from his recent antibiotics, foot infection etc is possible as well. Urinalysis looks bland not suggestive of overt ATN. will continue gentle hydration as ordered and recommended by metal furniture assembly supervisor at 50 cc/hr. urine studies eivewed. FeNA 0.7% FeUrea 12.4% suggestive of prerenal disease. urine eosinophil negative. arechiga in place. US kidney with no hydronephrosis. Strict I and O. CXR with bialteral effusion which is likely chronic, recent cxr compared and is very less congested comapred to recently. avoid nephrotoxic medications. hold quinapril stop alevel hold lasix Currenlty fluids on hold due to congestive changes. bumex ordered per nephrology. started on HD 07/21, repeat HD 07/22 adn 07/23. motnior urine output. still oliguric. dialysis prn for until renal function recovers. on prednisone for possible allergic interstitial nephritis. urine eosionophils negative. though peripheral eosinophilia present mointor urine output and watch off dialysis today.reheck labs in am # Aucte on chornic congestive heart failrue: diuretics restarted. congesive chagnes with fluid resuscitation. recheck echo in process. he had diastolic heart failure in . echo with LVEF 60-65% ,mildly increased LV wall thickeness, RV systolic function reduced with PASP 51 mmHg # hx of pericardial efffusion needing window in the past 2003 # bilateral diffuse lymphedema lower extrmeities: OT to see for lymphedema. # Right foot verrous changes needs wound care. will consult wound care. # Chronic low back pain # Chronic venous insufficiency # CKD (chronic kidney disease) stage 3, GFR 30-59 ml/min # Dyslipidemia # Essential (primary) hypertension: hypotensive overnight. hold bp medications. # GERD without esophagitis # Hypothyroidism: levothyroxine # AMELIA: on cpap at night. # Rosacea hx # Peripheral neuropathy with paraparesis # DVT proh: heparin sq # Diet: renal/cardiac # Full code status Subjective Date/time seen: 07/24/20 12:54 Interval history: He had bleeding from his tunneled catheter site, which was fixed by the surgeon this am at bedside, no other complaints. he is feeling better, no sob, chest pain. legs are getting wrapped with wound care team. Review of Systems Review of Systems: Narrative: - CONSTITUTIONAL: Denies weight loss, fever and chills. - HEENT: Denies changes in vision and hearing - RESPIRATORY: Denies SOB and cough. - CV: Denies palpitations and CP. - GI: Denies abdominal pain, nausea, vomiting and diarrhea. - : Denies dysuria and urinary frequency. - MSK: Denies myalgia and joint pain. - SKIN: Denies rash and pruritus. - NEUROLOGICAL: Denies headache and syncope. - PSYCHIATRIC: Denies recent changes in mood. Denies anxiety and depression. All systems reviewed & are unremarkable except as noted in HPI and below Constitutional: Constitutional: Reports fatigue and Reports weakness Neurologic: Reports weakness Endocrine: Endocrine: Reports fatigue Exam Narrative: Exam Narrative: GENERAL: The patient is well developed morbidly obese, not in acute distress HEENT: Nonicteric sclerae, PERRLA, EOMI. Oropharynx clear. Moist mucous membranes. Conjunctivae appear well perfused. CHEST: Chest wall is nontender. HEART: Regular rate and rhythm without murmur, rubs, or gallops LUNGS: decreased breath sounds bilaterally, no added sounds heard. no respiratory distress ABDOMEN: Soft, positive bowel sounds, non-tender, no organomegaly, distended SKIN: No rash, no excessive bruising, petechiae, or purpura. NEUROLOGIC: Cranial nerves II-XII intact, alert and oriented x 3, lower extermity weakness which is chronic EXTREMITIES: no cyanosis or clubbing lymphedematous bilaterall lower extremity. verrucous changes in his foot with moist area on t
--- NOTE | 2020-07-24 12:58 | PCPTNOTE ---
Attempted to check on patient 3x and he was with other staff members at those times. Will follow up as time allows.
[2020-07-24 18:42] LABS: Albumin 3.8 g/dL (3.8-4.8); Alpha 1 Globulin 0.4 g/dL (0.2-0.3); Alpha 2 Globulin 0.8 g/dL (0.5-0.9); Beta 1 Globulin 0.5 g/dL (0.4-0.6); Gamma Globulin 0.9 g/dL (0.8-1.7); Protein, Total 6.7 g/dL (6.1-8.1)
[2020-07-24 19:14] LABS: Hepatitis B Core Ab Total Nonreactive (Nonreactive)
[2020-07-24 19:45] LABS: Anti Streptolysin O Screen <50 IU/mL (<200)
[2020-07-25] VITALS (11 sets, daily range): BP systolic 125–140; BP diastolic 66–85; PULSE 64–85; RESP 16–20; TEMP 36–36.5; O2SAT 65–100
[2020-07-25 05:37] LABS: Hematocrit 35.5 % (42.0-52.0); Hemoglobin 10.4 g/dL (14.0-18.0); Mean Corpuscular HGB Conc 29.3 g/dl (32-36); Mean Corpuscular Hemoglobin 24.8 pg (26-34); Mean Corpuscular Volume 84.7 fl (80-100); Mean Platelet Volume 10.9 fl (7.4-10.4); Platelet Count Result 341 k/mm3 (150-375); Red Blood Count 4.19 M/mm3 (4.6-6.20); White Blood Count 7.2 K/mm3 (4.5-10.0)
[2020-07-25 05:46] LABS: Albumin Level 4.1 g/dL (3.5-5.1); Anion Gap 6 mmol/L (8-16); Blood Urea Nitrogen 39 mg/dL (9-20); Calcium 8.9 mg/dL (8.4-10.2); Carbon Dioxide 35 mmol/L (22-30); Chloride 98 mmol/L (98-107); Estimated CRCL calculation 32 ml/min; Estimated Glomerular Filt Rate 19; Glucose 116 mg/dL (75-110); Phosphorus 4.9 mg/dL (2.5-4.5); Potassium 4.5 mmol/L (3.4-5.0); Sodium 139 mmol/L (137-145)
[2020-07-25] MEDS: LEVOTHYROXINE SODIUM 100 MCG TABLET 200 MCG PO (06:10)
[2020-07-25] MEDS: ASPIRIN 81 MG ENTERIC TABLET PO (09:12)
[2020-07-25] MEDS: PANTOPRAZOLE 40 MG TABLET PO (09:13)
[2020-07-25] MEDS: HEPARIN SODIUM 5,000 UNITS/ML VIAL 5000 UNITS SUB-Q ×2 (09:13→20:10)
[2020-07-25] MEDS: LORATADINE 10 MG TABLET PO (09:13)
[2020-07-25] MEDS: predniSONE 20 MG TABLET 80 MG PO (09:13)
[2020-07-25] MEDS: FLUTICASONE PROPIONATE 0.05% NA SPR 16 GM BTL (*BKC) 1 SPRAY NASAL (09:13)
--- NOTE | 2020-07-25 14:52 | PM.IMPN ---
Progress Note: A&P Assessment and Plan (1) Acute renal failure: Code(s): N17.9 - Acute kidney failure, unspecified Status: Acute (2) Venous stasis ulcer of right lower extremity: Code(s): I83.019 - Varicose veins of right lower extremity with ulcer of unspecified site; L97.919 - Non-pressure chronic ulcer of unspecified part of right lower leg with unspecified severity Status: Acute (3) Lymphedema of both lower extremities: Code(s): I89.0 - Lymphedema, not elsewhere classified Status: Acute (4) Rosacea: Code(s): L71.9 - Rosacea, unspecified Status: Acute (5) Chronic low back pain: Qualifiers: Back pain laterality: unspecified Sciatica presence: unspecified whether sciatica present Qualified Code(s): M54.5 - Low back pain; G89.29 - Other chronic pain Code(s): M54.5 - Low back pain; G89.29 - Other chronic pain Status: Acute (6) Chronic congestive heart failure: Qualifiers: Heart failure type: unspecified Qualified Code(s): I50.9 - Heart failure, unspecified Code(s): I50.9 - Heart failure, unspecified Status: Acute (7) Hypothyroidism: Qualifiers: Hypothyroidism type: acquired Qualified Code(s): E03.9 - Hypothyroidism, unspecified Code(s): E03.9 - Hypothyroidism, unspecified Status: Acute (8) Chronic venous insufficiency: Code(s): I87.2 - Venous insufficiency (chronic) (peripheral) Status: Acute (9) GERD without esophagitis: Code(s): K21.9 - Gastro-esophageal reflux disease without esophagitis Status: Acute (10) Dyslipidemia: Code(s): E78.5 - Hyperlipidemia, unspecified Status: Acute (11) CKD (chronic kidney disease) stage 3, GFR 30-59 ml/min: Qualifiers: Chronic kidney disease stage 3 subtype: stage 3b (GFR 30-44) Qualified Code(s): N18.32 - Chronic kidney disease, stage 3b Code(s): N18.3 - Chronic kidney disease, stage 3 (moderate) Status: Acute (12) Essential (primary) hypertension: Code(s): I10 - Essential (primary) hypertension Status: Acute (13) Peripheral polyneuropathy: Code(s): G62.9 - Polyneuropathy, unspecified Status: Acute (14) AMELIA (obstructive sleep apnea): Code(s): G47.33 - Obstructive sleep apnea (adult) (pediatric) Status: Acute Additional Plan # Acute on chronic renal failure stage III: baseline cr 1.7-2. currently 6.5. chronology of symptoms indicative of prerenal cause, however monica cause from his recent antibiotics, foot infection etc is possible as well. Urinalysis looks bland not suggestive of overt ATN. will continue gentle hydration as ordered and recommended by physician scribe at 50 cc/hr. urine studies eivewed. FeNA 0.7% FeUrea 12.4% suggestive of prerenal disease. urine eosinophil negative. arechiga in place. US kidney with no hydronephrosis. Strict I and O. CXR with bialteral effusion which is likely chronic, recent cxr compared and is very less congested comapred to recently. avoid nephrotoxic medications. hold quinapril stop alevel hold lasix Currenlty fluids on hold due to congestive changes. bumex ordered per nephrology. started on HD 07/21, repeat HD 07/22 adn 07/23. motnior urine output. still oliguric. dialysis prn for until renal function recovers. on prednisone for possible allergic interstitial nephritis. urine eosionophils negative. though peripheral eosinophilia present mointor urine output which is improving. creatinine improving wihtou HD. watch off HD. likely no further HD requireed. appreciate nephro help. furthe rtaper of prednisone per nephrology. # Aucte on chornic congestive heart failrue: diuretics restarted. congesive chagnes with fluid resuscitation. recheck echo in process. he had diastolic heart failure in . echo with LVEF 60-65% ,mildly increased LV wall thickeness, RV systolic function reduced with PASP 51 mmHg # hx of pericardial
[2020-07-25] MEDS: ACETAMINOPHEN 325 MG TABLET 650 MG PO ×2 (15:56→22:23)
[2020-07-25] MEDS: TOLNAFTATE 1% POWDER 45 GM BTL 1 APPLIC TOPICAL (15:57)
--- NOTE | 2020-07-25 16:58 | P.PNNP_ITS ---
Progress Note: A&P Assessment and Plan (1) Acute renal failure: Code(s): N17.9 - Acute kidney failure, unspecified Status: Acute Assessment and Plan: * suspicion falls on acute interstitial nephritis - recent antibiotic AND NSAID use - evidence of peripheral eosinophilia - on steroid therapy * however, chronic pre-renal azotemia could be to blame as well - moderate pulmonary HTN/large right ventricle/redcued RV function by echo leading to chronic edema - chronic diuretic use as well * evaluation to date: - prerenal urine electrolytes - renal ultrasound without acute changes - urine eosinophils negative * kidney function/creatinine stable if not better * making reasonable urine output * hold HD today and follow labs and UOP (2) CKD (chronic kidney disease) stage 3, GFR 30-59 ml/min: Qualifiers: Chronic kidney disease stage 3 subtype: stage 3b (GFR 30-44) Qualified Code(s): N18.32 - Chronic kidney disease, stage 3b Code(s): N18.3 - Chronic kidney disease, stage 3 (moderate) Status: Acute Assessment and Plan: * baseline creatinine runs ~ 1.4 - 1.7mg/dl in the last few years * due to hypertension and chronic pre renal azotemia due to his poorly functioning heart * may be an element of disease progression due to necessity of diuretic titration/escalation to treat his edema (3) CHF (congestive heart failure): Code(s): I50.9 - Heart failure, unspecified Status: Acute Assessment and Plan: * evidence of right sided heart failure by Echo * follow volume status closely (4) Lymphedema of both lower extremities: Code(s): I89.0 - Lymphedema, not elsewhere classified Status: Acute Assessment and Plan: * chronic issue * exam with thickened skin * likely etiology of his recurrent cellulitis issues/problems (5) Essential (primary) hypertension: Code(s): I10 - Essential (primary) hypertension Status: Acute Assessment and Plan: * BP relatively stable at this time * known to have quite high BP (was previously on minoxidil) * follow hemodynamics (6) AMELIA (obstructive sleep apnea): Code(s): G47.33 - Obstructive sleep apnea (adult) (pediatric) Status: Acute Assessment and Plan: * continue CPAP Will continue to follow. Subjective Date/time seen: 07/25/20 16:58 Chart reviewed since admission -- sitting up in chair at the time of my visit; appears to be doing reasonably well; some improvement in kidney function noted; no apparent distress. Exam Narrative: Exam Narrative: General: WD/WN male in NAD Heart: normal S1 and S2; no rub Lungs: decreased breath sounds, particularly at bases Abdomen: soft, nontender, nondistended, positive bowel sounds Extremities: no cyanosis or clubbing; 2+ edema Skin: chronic venous stasis changes Objective Data Vital Signs Vital Signs: Vital Signs Temp Pulse Resp BP Pulse Ox 07/25/20 16:00 36.2 C L 78 20 136/66 94 07/25/20 12:00 74 07/25/20 10:00 85 07/25/20 09:28 90 07/25/20 08:00 36.5 C 76 16 125/66 65 L 07/25/20 06:00 68 07/25/20 04:00 36.4 C L 64 20 140/85 100 07/25/20 02:00 70 07/25/20 00:00 68 20 99 07/24/20
--- NOTE | 2020-07-25 16:58 | PM.PNNEP ---
Progress Note: A&P Assessment and Plan (1) Acute renal failure: Code(s): N17.9 - Acute kidney failure, unspecified Status: Acute Assessment and Plan: suspicion falls on acute interstitial nephritis - recent antibiotic AND NSAID use - evidence of peripheral eosinophilia - on steroid therapy however, chronic pre-renal azotemia could be to blame as well - moderate pulmonary HTN/large right ventricle/redcued RV function by echo leading to chronic edema - chronic diuretic use as well evaluation to date: - prerenal urine electrolytes - renal ultrasound without acute changes - urine eosinophils negative kidney function/creatinine stable if not better making reasonable urine output hold HD today and follow labs and UOP (2) CKD (chronic kidney disease) stage 3, GFR 30-59 ml/min: Qualifiers: Chronic kidney disease stage 3 subtype: stage 3b (GFR 30-44) Qualified Code(s): N18.32 - Chronic kidney disease, stage 3b Code(s): N18.3 - Chronic kidney disease, stage 3 (moderate) Status: Acute Assessment and Plan: baseline creatinine runs ~ 1.4 - 1.7mg/dl in the last few years due to hypertension and chronic pre renal azotemia due to his poorly functioning heart may be an element of disease progression due to necessity of diuretic titration/escalation to treat his edema (3) CHF (congestive heart failure): Code(s): I50.9 - Heart failure, unspecified Status: Acute Assessment and Plan: evidence of right sided heart failure by Echo follow volume status closely (4) Lymphedema of both lower extremities: Code(s): I89.0 - Lymphedema, not elsewhere classified Status: Acute Assessment and Plan: chronic issue exam with thickened skin likely etiology of his recurrent cellulitis issues/problems (5) Essential (primary) hypertension: Code(s): I10 - Essential (primary) hypertension Status: Acute Assessment and Plan: BP relatively stable at this time known to have quite high BP (was previously on minoxidil) follow hemodynamics (6) AMELIA (obstructive sleep apnea): Code(s): G47.33 - Obstructive sleep apnea (adult) (pediatric) Status: Acute Assessment and Plan: continue CPAP Will continue to follow. Subjective Date/time seen: 07/25/20 16:58 Chart reviewed since admission -- sitting up in chair at the time of my visit; appears to be doing reasonably well; some improvement in kidney function noted; no apparent distress. Exam Narrative: Exam Narrative: General: WD/WN male in NAD Heart: normal S1 and S2; no rub Lungs: decreased breath sounds, particularly at bases Abdomen: soft, nontender, nondistended, positive bowel sounds Extremities: no cyanosis or clubbing; 2+ edema Skin: chronic venous stasis changes Objective Data Vital Signs Vital Signs: Vital Signs Temp Pulse Resp BP Pulse Ox 07/25/20 16:00 36.2 C L 78 20 136/66 94 07/25/20 12:00 74 07/25/20 10:00 85 07/25/20 09:28 90 07/25/20 08:00 36.5 C 76 16 125/66 65 L 07/25/20 06:00 68 07/25/20 04:00 36.4 C L 64 20 140/85 100 07/25/20 02:00 70 07/25/20 00:00 68 20 99 07/24/20 23:51 36.3 C L 68 20 143/70 H 99 07/24/20 22:48 70 18 97 07/24/20 22:00 64 07/24/20 20:00 71 20 96 07/24/20 18:47 36.6 C 77 20 159/76 H 96 Intake/Output Intake/Output: Intake & Output 07/22/20 07/23/20 07/24/20 07/25/20 23:59 23:59 23:59 23:59 Intake Total 590 783 616 3555 Output Total 3750 3750 750 1000 [facility] -[id number] -[phone] -270 470 Meds/Results Medications: Active Medications Generic Name Dose Route Start Last Admin Trade Name Alanis PRN Reason Stop Dose Admin Acetaminophen 650 mg 07/20/20 17:23 07/25/20 15:56 Acetaminophen 325
[2020-07-25 20:02] LABS: Complement Total CH50 >60 U/mL (31-60)
--- NOTE | 2020-07-25 21:59 | PC.NURSE ---
This patient, Irwin Cyr ., was transferred to [[id number] ] on 07/25/20 at 2200. Personal belongings sent with patient. Report given to [third floor med surg ]. Appropriate documentation sent with patient.
--- NOTE | 2020-07-25 22:40 | PC.NURSE ---
This patient, Irwin Cyr , was received from [[id number] ] on 07/25/20 at 2200. Patient/family oriented to unit policies and routines
[2020-07-26] MEDS: LEVOTHYROXINE SODIUM 100 MCG TABLET 200 MCG PO (05:30)
[2020-07-26 06:00] VITALS: BP 131/66; PULSE 62; RESP 18; TEMP 36.1; O2SAT 97
[2020-07-26 07:25] LABS: Albumin Level 4.1 g/dL (3.5-5.1); Anion Gap 6 mmol/L (8-16); Blood Urea Nitrogen 44 mg/dL (9-20); Calcium 9.3 mg/dL (8.4-10.2); Carbon Dioxide 34 mmol/L (22-30); Chloride 99 mmol/L (98-107); Estimated CRCL calculation 45 ml/min; Estimated Glomerular Filt Rate 26; Glucose 112 mg/dL (75-110); Phosphorus 4.1 mg/dL (2.5-4.5); Potassium 4.5 mmol/L (3.4-5.0); Sodium 139 mmol/L (137-145)
[2020-07-26] MEDS: HEPARIN SODIUM 5,000 UNITS/ML VIAL 5000 UNITS SUB-Q ×2 (09:36→22:07)
[2020-07-26] MEDS: FLUTICASONE PROPIONATE 0.05% NA SPR 16 GM BTL (*BKC) 1 SPRAY NASAL (09:36)
[2020-07-26] MEDS: LORATADINE 10 MG TABLET PO (09:36)
[2020-07-26] MEDS: predniSONE 20 MG TABLET 80 MG PO (09:36)
[2020-07-26] MEDS: TOLNAFTATE 1% POWDER 45 GM BTL 1 APPLIC TOPICAL (09:36)
[2020-07-26] MEDS: ASPIRIN 81 MG ENTERIC TABLET PO (09:36)
[2020-07-26] MEDS: PANTOPRAZOLE 40 MG TABLET PO (09:36)
[2020-07-26 10:07] VITALS: O2SAT 92
--- NOTE | 2020-07-26 11:02 | P.PNNP_ITS ---
Progress Note: A&P Assessment and Plan (1) Acute renal failure: Code(s): N17.9 - Acute kidney failure, unspecified Status: Acute Assessment and Plan: * suspicion falls on acute interstitial nephritis - recent antibiotic AND NSAID use - evidence of peripheral eosinophilia - on steroid therapy - start weaning * however, chronic pre-renal azotemia could be to blame as well - moderate pulmonary HTN/large right ventricle/redcued RV function by echo leading to chronic edema - chronic diuretic use as well * evaluation to date: - prerenal urine electrolytes - renal ultrasound without acute changes - urine eosinophils negative * kidney function/creatinine stable if not better * making reasonable urine output * continue to hold HD today and follow labs and UOP (2) CKD (chronic kidney disease) stage 3, GFR 30-59 ml/min: Qualifiers: Chronic kidney disease stage 3 subtype: stage 3b (GFR 30-44) Qualified Code(s): N18.32 - Chronic kidney disease, stage 3b Code(s): N18.3 - Chronic kidney disease, stage 3 (moderate) Status: Acute Assessment and Plan: * baseline creatinine runs ~ 1.4 - 1.7mg/dl in the last few years * due to hypertension and chronic pre renal azotemia due to his poorly functioning heart * may be an element of disease progression due to necessity of diuretic titration/escalation to treat his edema * possible new baseline given #1(?) (3) CHF (congestive heart failure): Code(s): I50.9 - Heart failure, unspecified Status: Acute Assessment and Plan: * evidence of right sided heart failure by Echo * follow volume status closely * trial dose of lasix today x 1 (4) Lymphedema of both lower extremities: Code(s): I89.0 - Lymphedema, not elsewhere classified Status: Acute Assessment and Plan: * chronic issue * exam with thickened skin * likely etiology of his recurrent cellulitis issues/problems (5) Essential (primary) hypertension: Code(s): I10 - Essential (primary) hypertension Status: Acute Assessment and Plan: * BP relatively stable at this time * known to have quite high BP (was previously on minoxidil) * follow hemodynamics (6) AMELIA (obstructive sleep apnea): Code(s): G47.33 - Obstructive sleep apnea (adult) (pediatric) Status: Acute Assessment and Plan: * continue CPAP Will continue to follow. Subjective Date/time seen: 07/26/20 11:02 Continues to make slow and steady progress; continues to make good urine output with improving renal function; no other apparent complaints or issues voiced at this time; no apparent distress; no events overnight or earlier this AM. Exam Narrative: Exam Narrative: General: WD/WN male in NAD Heart: normal S1 and S2; no rub Lungs: decreased breath sounds, particularly at bases Abdomen: soft, nontender, nondistended, positive bowel sounds Extremities: no cyanosis or clubbing; 2+ edema Skin: chronic venous stasis changes present Objective Data Vital Signs Vital Signs: Vital Signs Temp Pulse Resp BP Pulse Ox 07/26/20 10:07 92 07/26/20 06:00 36.1 C L 62 18 131/66 97 07/25/20 22:00 36.0 C L 67 20 127/74 93 07/25/20 20:00 78 20 94 07/25/20 16:00 36.2 C L 78 20 136/66 94
--- NOTE | 2020-07-26 11:02 | PM.PNNEP ---
Progress Note: A&P Assessment and Plan (1) Acute renal failure: Code(s): N17.9 - Acute kidney failure, unspecified Status: Acute Assessment and Plan: suspicion falls on acute interstitial nephritis - recent antibiotic AND NSAID use - evidence of peripheral eosinophilia - on steroid therapy - start weaning however, chronic pre-renal azotemia could be to blame as well - moderate pulmonary HTN/large right ventricle/redcued RV function by echo leading to chronic edema - chronic diuretic use as well evaluation to date: - prerenal urine electrolytes - renal ultrasound without acute changes - urine eosinophils negative kidney function/creatinine stable if not better making reasonable urine output continue to hold HD today and follow labs and UOP (2) CKD (chronic kidney disease) stage 3, GFR 30-59 ml/min: Qualifiers: Chronic kidney disease stage 3 subtype: stage 3b (GFR 30-44) Qualified Code(s): N18.32 - Chronic kidney disease, stage 3b Code(s): N18.3 - Chronic kidney disease, stage 3 (moderate) Status: Acute Assessment and Plan: baseline creatinine runs ~ 1.4 - 1.7mg/dl in the last few years due to hypertension and chronic pre renal azotemia due to his poorly functioning heart may be an element of disease progression due to necessity of diuretic titration/escalation to treat his edema possible new baseline given #1(?) (3) CHF (congestive heart failure): Code(s): I50.9 - Heart failure, unspecified Status: Acute Assessment and Plan: evidence of right sided heart failure by Echo follow volume status closely trial dose of lasix today x 1 (4) Lymphedema of both lower extremities: Code(s): I89.0 - Lymphedema, not elsewhere classified Status: Acute Assessment and Plan: chronic issue exam with thickened skin likely etiology of his recurrent cellulitis issues/problems (5) Essential (primary) hypertension: Code(s): I10 - Essential (primary) hypertension Status: Acute Assessment and Plan: BP relatively stable at this time known to have quite high BP (was previously on minoxidil) follow hemodynamics (6) AMELIA (obstructive sleep apnea): Code(s): G47.33 - Obstructive sleep apnea (adult) (pediatric) Status: Acute Assessment and Plan: continue CPAP Will continue to follow. Subjective Date/time seen: 07/26/20 11:02 Continues to make slow and steady progress; continues to make good urine output with improving renal function; no other apparent complaints or issues voiced at this time; no apparent distress; no events overnight or earlier this AM. Exam Narrative: Exam Narrative: General: WD/WN male in NAD Heart: normal S1 and S2; no rub Lungs: decreased breath sounds, particularly at bases Abdomen: soft, nontender, nondistended, positive bowel sounds Extremities: no cyanosis or clubbing; 2+ edema Skin: chronic venous stasis changes present Objective Data Vital Signs Vital Signs: Vital Signs Temp Pulse Resp BP Pulse Ox 07/26/20 10:07 92 07/26/20 06:00 36.1 C L 62 18 131/66 97 07/25/20 22:00 36.0 C L 67 20 127/74 93 07/25/20 20:00 78 20 94 07/25/20 16:00 36.2 C L 78 20 136/66 94 07/25/20 12:00 74 Intake/Output Intake/Output: Intake & Output 07/23/20 07/24/20 07/25/20 07/26/20 23:59 23:59 23:59 23:59 Intake Total 465 186 1421 440 Output Total 3750 750 1650 500 Balance -3010 -270 220 -60 Meds/Results Medications: Active Medications Generic Name Dose Route Start Last Admin Trade Name Marcosq PRN Reason Stop Dose Admin Acetaminophen 650 mg 07/20/20 17:23 07/25/20 22:23 Acetaminophen 325 Mg Tablet PO 650 mg Q4H PRN Administration Mild Pain (1-3) or Fever Aspirin 81 mg 07/21/20
[2020-07-26] MEDS: FUROSEMIDE 40 MG TABLET PO (12:59)
[2020-07-26 14:00] VITALS: BP 140/79; PULSE 61; RESP 18; TEMP 36.8; O2SAT 95
--- NOTE | 2020-07-26 14:45 | PM.IMPN ---
Progress Note: A&P Assessment and Plan (1) Acute renal failure: Code(s): N17.9 - Acute kidney failure, unspecified Status: Acute Assessment and Plan: Acute on chronic renal failure. Baseline Cr 1.7-2. Cr on admission was 6.5. Chronology of symptoms indicative of prerenal cause, however renal cause from his recent antibiotics, foot infection etc is possible as well. Urinalysis looks bland not suggestive of overt ATN. FeNA 0.7%. He was started on gentle hydration. Urine eos negative. Tunnelled HD catheter placed 07/21. Tolerating HD. HD held off for yesterday and today since his UOP is improving. On Prednisone for possible AIN. Educated about the benefit of not using Aleve or Ibuprofen. ACEI remains on hold. Lasix once given today by nephrolgist. Continue steroids. (2) Venous stasis ulcer of right lower extremity: Code(s): I83.019 - Varicose veins of right lower extremity with ulcer of unspecified site; L97.919 - Non-pressure chronic ulcer of unspecified part of right lower leg with unspecified severity Status: Acute Assessment and Plan: Stable. Continue current wound care. (3) Lymphedema of both lower extremities: Code(s): I89.0 - Lymphedema, not elsewhere classified Status: Acute Assessment and Plan: Patient has chronic lymphedema. Echocardiogram shows moderate pulmonary hypertension which is probably contributing to this. Lasix once given. Continue to monitor closely. (4) Chronic congestive heart failure: Qualifiers: Heart failure type: unspecified Qualified Code(s): I50.9 - Heart failure, unspecified Code(s): I50.9 - Heart failure, unspecified Status: Acute Assessment and Plan: Patient has a history of CHF although his EF is 60% in his normal diastolic function. Probably more likely right heart failure with his pulmonary hypertension. As above. (5) Hypothyroidism: Qualifiers: Hypothyroidism type: acquired Qualified Code(s): E03.9 - Hypothyroidism, unspecified Code(s): E03.9 - Hypothyroidism, unspecified Status: Acute Assessment and Plan: No TSH listed here. He has been resumed on his levothyroxine. Will check TSH in the morning. (6) Chronic venous insufficiency: Code(s): I87.2 - Venous insufficiency (chronic) (peripheral) Status: Acute Assessment and Plan: Chronic. As above. (7) CKD (chronic kidney disease) stage 3, GFR 30-59 ml/min: Qualifiers: Chronic kidney disease stage 3 subtype: stage 3b (GFR 30-44) Qualified Code(s): N18.32 - Chronic kidney disease, stage 3b Code(s): N18.3 - Chronic kidney disease, stage 3 (moderate) Status: Acute Assessment and Plan: Patient with CKD stage 3. He is followed closely by the instructional design technologist. As above. (8) Essential (primary) hypertension: Code(s): I10 - Essential (primary) hypertension Status: Acute Assessment and Plan: Patient's blood pressure was reviewed on 07/26 Blood pressure remains well controlled. Home medications remain on hold. Continue to monitor. (9) AMELIA (obstructive sleep apnea): Code(s): G47.33 - Obstructive sleep apnea (adult) (pediatric) Status: Acute Assessment and Plan: Patient is compliant with NIV. Continue the same. (10) DVT prophylaxis: Code(s): Z29.9 - Encounter for prophylactic measures, unspecified Status: Acute Assessment and Plan: Heparin Subjective Date/time seen: 07/26/20 14:45 Interval history: 70yo male with CKD, HTN, lymphedema and CHF here for weakness and noted to have JENA. Assuming care. Chart reviewed. Patient feels tired today. He has been working with therapy. He has a electric wheelchair but also uses a walker when he is at home. He has an indwelling Miller cath but does not have this chronically. Urine output has improved. Patient eating well. No darek
[2020-07-26 16:01] LABS: Creatinine, Random Urine 246 mg/dL (20-320); Total Protein/Creatinine Ratio 496 mg/g creat (22-128)
[2020-07-26 20:46] LABS: SARS-CoV-2 RNA PCR Negative
[2020-07-26 21:45] VITALS: BP 155/63; PULSE 86; RESP 20; TEMP 36.1; O2SAT 93
[2020-07-26] MEDS: ACETAMINOPHEN 325 MG TABLET 650 MG PO (22:07)
[2020-07-26 22:27] VITALS: PULSE 76; O2SAT 95
[2020-07-26 22:29] VITALS: PULSE 76; O2SAT 95
[2020-07-27 00:19] VITALS: PULSE 53; RESP 14; O2SAT 93
[2020-07-27] MEDS: LEVOTHYROXINE SODIUM 100 MCG TABLET 200 MCG PO (06:15)
[2020-07-27 06:34] LABS: Hematocrit 35.5 % (42.0-52.0); Hemoglobin 10.6 g/dL (14.0-18.0); Mean Corpuscular HGB Conc 29.9 g/dl (32-36); Mean Corpuscular Hemoglobin 25.1 pg (26-34); Mean Corpuscular Volume 83.9 fl (80-100); Mean Platelet Volume 10.5 fl (7.4-10.4); Platelet Count Result 313 k/mm3 (150-375); Red Blood Count 4.23 M/mm3 (4.6-6.20); Red Cell Distribution Width 15.9 % (11.5-14.5); White Blood Count 6.4 K/mm3 (4.5-10.0)
[2020-07-27 06:35] VITALS: BP 161/71; PULSE 55; RESP 20; TEMP 36.1; O2SAT 95
[2020-07-27 06:49] LABS: Albumin Level 4.1 g/dL (3.5-5.1); Anion Gap 4 mmol/L (8-16); Blood Urea Nitrogen 46 mg/dL (9-20); Calcium 9.4 mg/dL (8.4-10.2); Carbon Dioxide 37 mmol/L (22-30); Chloride 99 mmol/L (98-107); Estimated CRCL calculation 45 ml/min; Estimated Glomerular Filt Rate 27; Glucose 114 mg/dL (75-110); Phosphorus 4.1 mg/dL (2.5-4.5); Potassium 5.1 mmol/L (3.4-5.0); Sodium 140 mmol/L (137-145)
[2020-07-27] MEDS: acetaZOLAMIDE TAB 250 MG TABLET PO (08:40)
[2020-07-27] MEDS: ASPIRIN 81 MG ENTERIC TABLET PO (08:40)
[2020-07-27] MEDS: FLUTICASONE PROPIONATE 0.05% NA SPR 16 GM BTL (*BKC) 1 SPRAY NASAL (08:40)
[2020-07-27] MEDS: FUROSEMIDE 40 MG TABLET PO (08:41)
[2020-07-27] MEDS: PANTOPRAZOLE 40 MG TABLET PO (08:41)
[2020-07-27] MEDS: LORATADINE 10 MG TABLET PO (08:41)
[2020-07-27] MEDS: predniSONE 20 MG, predniSONE 10 MG 30 MG PO ×2 (08:41→17:19)
[2020-07-27] MEDS: TOLNAFTATE 1% POWDER 45 GM BTL 1 APPLIC TOPICAL (08:43)
[2020-07-27] MEDS: HEPARIN SODIUM 5,000 UNITS/ML VIAL 5000 UNITS SUB-Q ×2 (08:47→21:03)
[2020-07-27 10:32] LABS: Total Triiodothyronine (T3) 0.87 NG/ML (0.97-1.69)
--- NOTE | 2020-07-27 11:17 | PCNWS ---
Weekly nutritional screen. Patient is tolerating current diet-Renal Dialysis with adequate intake-100% of meals. No weight loss reported. No nutritional needs at this time.
[2020-07-27 11:47] LABS: Creat 24 Hr 1.32 g/24 h (0.50-2.15); Pro/Creat Ratio 397 mg/g creat (<115)
--- NOTE | 2020-07-27 12:19 | P.PNNP_ITS ---
Progress Note: A&P Assessment and Plan (1) Acute renal failure: Code(s): N17.9 - Acute kidney failure, unspecified Status: Acute Assessment and Plan: * suspicion falls on acute interstitial nephritis - recent antibiotic AND NSAID use - evidence of peripheral eosinophilia - on steroid therapy - start weaning * however, chronic pre-renal azotemia could be to blame as well - moderate pulmonary HTN/large right ventricle/redcued RV function by echo leading to chronic edema - chronic diuretic use as well * evaluation to date: - prerenal urine electrolytes - renal ultrasound without acute changes - urine eosinophils negative * kidney function/creatinine stable if not better * making reasonable urine output * continue to hold HD and follow labs and UOP (2) CKD (chronic kidney disease) stage 3, GFR 30-59 ml/min: Qualifiers: Chronic kidney disease stage 3 subtype: stage 3b (GFR 30-44) Qualified Code(s): N18.32 - Chronic kidney disease, stage 3b Code(s): N18.3 - Chronic kidney disease, stage 3 (moderate) Status: Acute Assessment and Plan: * baseline creatinine runs ~ 1.4 - 1.7mg/dl in the last few years * due to hypertension and chronic pre renal azotemia due to his poorly functioning heart * may be an element of disease progression due to necessity of diuretic titration/escalation to treat his edema * possible new baseline given #1(?) (3) CHF (congestive heart failure): Code(s): I50.9 - Heart failure, unspecified Status: Acute Assessment and Plan: * evidence of right sided heart failure by Echo * follow volume status closely * resume lasix and add acetazolamide (4) Lymphedema of both lower extremities: Code(s): I89.0 - Lymphedema, not elsewhere classified Status: Acute Assessment and Plan: * chronic issue * exam with thickened skin * likely etiology of his recurrent cellulitis issues/problems (5) Essential (primary) hypertension: Code(s): I10 - Essential (primary) hypertension Status: Acute Assessment and Plan: * BP relatively stable at this time * known to have quite high BP (was previously on minoxidil) * follow hemodynamics (6) AMELIA (obstructive sleep apnea): Code(s): G47.33 - Obstructive sleep apnea (adult) (pediatric) Status: Acute Assessment and Plan: * continue CPAP Will continue to follow. Subjective Date/time seen: 07/27/20 12:19 Appears to be doing fairly well; continue to make reasonable urine output (was given oral lasix x 1 yesterday); breathing/respiratory status seems stable if not better; no apparent distress voiced; no issues/events overnight or earlier this AM. Exam Narrative: Exam Narrative: General: WD/WN male in NAD Heart: normal S1 and S2; no rub Lungs: decreased breath sounds, particularly at bases Abdomen: soft, nontender, nondistended, positive bowel sounds Extremities: no cyanosis or clubbing; 2+ edema Skin: chronic venous stasis changes noted Objective Data Vital Signs Vital Signs: Vital Signs Temp Pulse Resp BP Pulse Ox 07/27/20 06:35 36.1 C L 55 L 20 161/71 H 95 07/27/20 00:19 53 L 14 93 07/26/20 22:29 76 95 07/26/20 22:27 76 95 07/26/20 21:45 36.1 C L 86 20 155/63 H
--- NOTE | 2020-07-27 12:19 | PM.PNNEP ---
Progress Note: A&P Assessment and Plan (1) Acute renal failure: Code(s): N17.9 - Acute kidney failure, unspecified Status: Acute Assessment and Plan: suspicion falls on acute interstitial nephritis - recent antibiotic AND NSAID use - evidence of peripheral eosinophilia - on steroid therapy - start weaning however, chronic pre-renal azotemia could be to blame as well - moderate pulmonary HTN/large right ventricle/redcued RV function by echo leading to chronic edema - chronic diuretic use as well evaluation to date: - prerenal urine electrolytes - renal ultrasound without acute changes - urine eosinophils negative kidney function/creatinine stable if not better making reasonable urine output continue to hold HD and follow labs and UOP (2) CKD (chronic kidney disease) stage 3, GFR 30-59 ml/min: Qualifiers: Chronic kidney disease stage 3 subtype: stage 3b (GFR 30-44) Qualified Code(s): N18.32 - Chronic kidney disease, stage 3b Code(s): N18.3 - Chronic kidney disease, stage 3 (moderate) Status: Acute Assessment and Plan: baseline creatinine runs ~ 1.4 - 1.7mg/dl in the last few years due to hypertension and chronic pre renal azotemia due to his poorly functioning heart may be an element of disease progression due to necessity of diuretic titration/escalation to treat his edema possible new baseline given #1(?) (3) CHF (congestive heart failure): Code(s): I50.9 - Heart failure, unspecified Status: Acute Assessment and Plan: evidence of right sided heart failure by Echo follow volume status closely resume lasix and add acetazolamide (4) Lymphedema of both lower extremities: Code(s): I89.0 - Lymphedema, not elsewhere classified Status: Acute Assessment and Plan: chronic issue exam with thickened skin likely etiology of his recurrent cellulitis issues/problems (5) Essential (primary) hypertension: Code(s): I10 - Essential (primary) hypertension Status: Acute Assessment and Plan: BP relatively stable at this time known to have quite high BP (was previously on minoxidil) follow hemodynamics (6) AMELIA (obstructive sleep apnea): Code(s): G47.33 - Obstructive sleep apnea (adult) (pediatric) Status: Acute Assessment and Plan: continue CPAP Will continue to follow. Subjective Date/time seen: 07/27/20 12:19 Appears to be doing fairly well; continue to make reasonable urine output (was given oral lasix x 1 yesterday); breathing/respiratory status seems stable if not better; no apparent distress voiced; no issues/events overnight or earlier this AM. Exam Narrative: Exam Narrative: General: WD/WN male in NAD Heart: normal S1 and S2; no rub Lungs: decreased breath sounds, particularly at bases Abdomen: soft, nontender, nondistended, positive bowel sounds Extremities: no cyanosis or clubbing; 2+ edema Skin: chronic venous stasis changes noted Objective Data Vital Signs Vital Signs: Vital Signs Temp Pulse Resp BP Pulse Ox 07/27/20 06:35 36.1 C L 55 L 20 161/71 H 95 07/27/20 00:19 53 L 14 93 07/26/20 22:29 76 95 07/26/20 22:27 76 95 07/26/20 21:45 36.1 C L 86 20 155/63 H 93 07/26/20 14:00 36.8 C 61 18 140/79 95 Intake/Output Intake/Output: Intake & Output 07/24/20 07/25/20 07/26/20 07/27/20 23:59 23:59 23:59 23:59 Intake Total 480 1870 980 440 Output Total 750 1650 1350 700 Balance -270 220 -370 -260 Meds/Results Medications: Active Medications Generic Name Dose Route Start Last Admin Trade Name Freq PRN Reason Stop Dose Admin Acetaminophen 650 mg 07/20/20 17:23 07/26/20 22:07 Acetaminophen 325 Mg Tablet PO 650 mg Q4H PRN Administration Mild Pain (1-3) or Fever Jayesh
[2020-07-27] MEDS: ACETAMINOPHEN 325 MG TABLET 650 MG PO ×2 (15:13→21:33)
[2020-07-27 16:00] VITALS: BP 146/84; PULSE 55; RESP 16; TEMP 36.6; O2SAT 94
--- NOTE | 2020-07-27 16:22 | PM.IMPN ---
Progress Note: A&P Assessment and Plan (1) Acute renal failure: Code(s): N17.9 - Acute kidney failure, unspecified Status: Acute Assessment and Plan: Acute on chronic renal failure. Baseline Cr 1.7-2. Cr on admission was 6.5. Chronology of symptoms indicative of prerenal cause, however renal cause from his recent antibiotics, foot infection etc is possible as well. Urinalysis looks bland not suggestive of overt ATN. FeNA 0.7%. He was started on gentle hydration. Urine eos negative. Tunnelled HD catheter placed 07/21. Tolerating HD. HD held off since his UOP is improving and Cr remaining stable. On Prednisone for possible AIN. Creatinine stable at 2.4. Potassium at 5.1. Educated about the benefit of not using Aleve or Ibuprofen. ACEI remains on hold. Lasix resumed by nephrolgist. Continue steroids. Repeat potasium. Home when okay with nephrology (2) Venous stasis ulcer of right lower extremity: Code(s): I83.019 - Varicose veins of right lower extremity with ulcer of unspecified site; L97.919 - Non-pressure chronic ulcer of unspecified part of right lower leg with unspecified severity Status: Acute Assessment and Plan: Stable. Continue current wound care. (3) Lymphedema of both lower extremities: Code(s): I89.0 - Lymphedema, not elsewhere classified Status: Acute Assessment and Plan: Patient has chronic lymphedema. Echocardiogram shows moderate pulmonary hypertension which is probably contributing to this. Lasix given again this morning and scheduled Lasix started. Continue to monitor closely. (4) Chronic congestive heart failure: Qualifiers: Heart failure type: unspecified Qualified Code(s): I50.9 - Heart failure, unspecified Code(s): I50.9 - Heart failure, unspecified Status: Acute Assessment and Plan: Patient has a history of CHF although Echo shows his EF is 60% with normal diastolic function. Probably more likely right heart failure with his pulmonary hypertension. As above. (5) Hypothyroidism: Qualifiers: Hypothyroidism type: acquired Qualified Code(s): E03.9 - Hypothyroidism, unspecified Code(s): E03.9 - Hypothyroidism, unspecified Status: Acute Assessment and Plan: TSH 9.2 and low normal FT4 at 0.9. Currently on home levothyroxine 200mcg. Will advance to 225mcg. Repeat TSH as outpatient (6) Chronic venous insufficiency: Code(s): I87.2 - Venous insufficiency (chronic) (peripheral) Status: Acute Assessment and Plan: Chronic. As above. (7) CKD (chronic kidney disease) stage 3, GFR 30-59 ml/min: Qualifiers: Chronic kidney disease stage 3 subtype: stage 3b (GFR 30-44) Qualified Code(s): N18.32 - Chronic kidney disease, stage 3b Code(s): N18.3 - Chronic kidney disease, stage 3 (moderate) Status: Acute Assessment and Plan: Patient with CKD stage 3. He is followed closely by the technology applications consultant. As above. (8) Essential (primary) hypertension: Code(s): I10 - Essential (primary) hypertension Status: Acute Assessment and Plan: Patient's blood pressure was reviewed on 07/27 Blood pressure remains well controlled. Home medications remain on hold. Lasix resumed today. Continue to monitor. (9) AMELIA (obstructive sleep apnea): Code(s): G47.33 - Obstructive sleep apnea (adult) (pediatric) Status: Acute Assessment and Plan: Patient is compliant with NIV. Continue the same. (10) DVT prophylaxis: Code(s): Z29.9 - Encounter for prophylactic measures, unspecified Status: Acute Assessment and Plan: Heparin Subjective Date/time seen: 07/27/20 16:22 Interval history: 70yo male with CKD, HTN, lymphedema and CHF here for weakness and noted to have JENA. Slept well last night. No n/v. Having small loose stool x 5 today. Also having crampy lower abd pain
[2020-07-27] MEDS: HYOSCYAMINE SULFATE 0.0625 MG TABLET PO ×2 (17:19→21:34)
[2020-07-27 19:06] LABS: Potassium 4.4 mmol/L (3.4-5.0)
[2020-07-27 22:00] VITALS: BP 154/77; PULSE 55; RESP 20; TEMP 36.4; O2SAT 96
[2020-07-27 22:40] VITALS: PULSE 57; RESP 14; O2SAT 95
[2020-07-28] MEDS: HYOSCYAMINE SULFATE 0.0625 MG TABLET PO ×3 (02:56→12:32)
[2020-07-28] MEDS: ACETAMINOPHEN 325 MG TABLET 650 MG PO ×4 (02:56→20:37)
[2020-07-28 06:00] VITALS: BP 144/72; PULSE 56; RESP 20; TEMP 36.3; O2SAT 96
[2020-07-28] MEDS: LEVOTHYROXINE SODIUM 100 MCG TABLET 200 MCG PO (06:03)
[2020-07-28] MEDS: LEVOTHYROXINE SODIUM 25 MCG TABLET PO (06:03)
[2020-07-28 06:48] LABS: Albumin Level 4.3 g/dL (3.5-5.1); Anion Gap 8 mmol/L (8-16); Blood Urea Nitrogen 50 mg/dL (9-20); Calcium 9.4 mg/dL (8.4-10.2); Carbon Dioxide 35 mmol/L (22-30); Chloride 99 mmol/L (98-107); Estimated CRCL calculation 50 ml/min; Estimated Glomerular Filt Rate 30; Glucose 114 mg/dL (75-110); Phosphorus 4.6 mg/dL (2.5-4.5); Potassium 4.9 mmol/L (3.4-5.0); Sodium 142 mmol/L (137-145)
[2020-07-28] MEDS: predniSONE 20 MG, predniSONE 10 MG 30 MG PO ×2 (09:24→17:46)
[2020-07-28] MEDS: ASPIRIN 81 MG ENTERIC TABLET PO (09:25)
[2020-07-28] MEDS: FLUTICASONE PROPIONATE 0.05% NA SPR 16 GM BTL (*BKC) 1 SPRAY NASAL (09:25)
[2020-07-28] MEDS: acetaZOLAMIDE TAB 250 MG TABLET PO (09:25)
[2020-07-28] MEDS: LORATADINE 10 MG TABLET PO (09:25)
[2020-07-28] MEDS: PANTOPRAZOLE 40 MG TABLET PO (09:25)
[2020-07-28] MEDS: FUROSEMIDE 40 MG TABLET PO (09:25)
[2020-07-28] MEDS: TOLNAFTATE 1% POWDER 45 GM BTL 1 APPLIC TOPICAL (09:26)
[2020-07-28] MEDS: HEPARIN SODIUM 5,000 UNITS/ML VIAL 5000 UNITS SUB-Q ×2 (09:27→20:38)
[2020-07-28 14:00] VITALS: BP 168/96; PULSE 69; RESP 20; TEMP 36.7; O2SAT 94
[2020-07-28] MEDS: HYOSCYAMINE SULFATE 0.125 MG TABLET PO ×2 (14:25→20:38)
--- NOTE | 2020-07-28 15:23 | P.PNNP_ITS ---
Progress Note: A&P Assessment and Plan (1) Acute renal failure: Code(s): N17.9 - Acute kidney failure, unspecified Status: Acute Assessment and Plan: * suspicion falls on acute interstitial nephritis - recent antibiotic AND NSAID use - evidence of peripheral eosinophilia - on steroid therapy - start weaning -- would do prednisone taper over 2 weeks * however, chronic pre-renal azotemia could be to blame as well - moderate pulmonary HTN/large right ventricle/reduced RV function by echo leading to chronic edema - chronic diuretic use as well * evaluation to date: - prerenal urine electrolytes - renal ultrasound without acute changes - urine eosinophils negative * kidney function/creatinine stable if not better * making reasonable urine output * continue to hold HD and follow labs and UOP - probably okay to remove tunneled HD catheter (2) CKD (chronic kidney disease) stage 3, GFR 30-59 ml/min: Qualifiers: Chronic kidney disease stage 3 subtype: stage 3b (GFR 30-44) Qualified Code(s): N18.32 - Chronic kidney disease, stage 3b Code(s): N18.3 - Chronic kidney disease, stage 3 (moderate) Status: Acute Assessment and Plan: * baseline creatinine runs ~ 1.4 - 1.7mg/dl in the last few years * due to hypertension and chronic pre renal azotemia due to his poorly functioning heart * may be an element of disease progression due to necessity of diuretic titration/escalation to treat his edema * possible new baseline given #1(?) (3) CHF (congestive heart failure): Code(s): I50.9 - Heart failure, unspecified Status: Acute Assessment and Plan: * evidence of right sided heart failure by Echo * follow volume status closely * resumed lasix and added acetazolamide (high Co2) (4) Lymphedema of both lower extremities: Code(s): I89.0 - Lymphedema, not elsewhere classified Status: Acute Assessment and Plan: * chronic issue * exam with thickened skin * likely etiology of his recurrent cellulitis issues/problems (5) Essential (primary) hypertension: Code(s): I10 - Essential (primary) hypertension Status: Acute Assessment and Plan: * BP relatively stable at this time * known to have quite high BP (was previously on minoxidil) * follow hemodynamics (6) AMELIA (obstructive sleep apnea): Code(s): G47.33 - Obstructive sleep apnea (adult) (pediatric) Status: Acute Assessment and Plan: * continue CPAP Would not be opposed to discharge tomorrow from renal perspective if otherwise medically stable. Will continue to follow. Subjective Date/time seen: 07/28/20 15:23 Appears to be doing reasonably well at the time of my visit; good urine output with diuretic therapy and respiratory status stable if not better; no apparent distress voiced; no events/issues overnight or earlier this AM; no other complaints to conveyed. Exam Narrative: Exam Narrative: General: WD/WN male in NAD Heart: normal S1 and S2; no rub Lungs: decreased breath sounds, particularly at bases Abdomen: soft, nontender, nondistended, positive bowel sounds Extremities: no cyanosis or clubbing; 2+ edema Skin: chronic venous stasis changes noted Objective Data Vital Signs Vital Signs: Vital Signs Temp Pulse Resp BP P
--- NOTE | 2020-07-28 15:23 | PM.PNNEP ---
Progress Note: A&P Assessment and Plan (1) Acute renal failure: Code(s): N17.9 - Acute kidney failure, unspecified Status: Acute Assessment and Plan: suspicion falls on acute interstitial nephritis - recent antibiotic AND NSAID use - evidence of peripheral eosinophilia - on steroid therapy - start weaning -- would do prednisone taper over 2 weeks however, chronic pre-renal azotemia could be to blame as well - moderate pulmonary HTN/large right ventricle/reduced RV function by echo leading to chronic edema - chronic diuretic use as well evaluation to date: - prerenal urine electrolytes - renal ultrasound without acute changes - urine eosinophils negative kidney function/creatinine stable if not better making reasonable urine output continue to hold HD and follow labs and UOP - probably okay to remove tunneled HD catheter (2) CKD (chronic kidney disease) stage 3, GFR 30-59 ml/min: Qualifiers: Chronic kidney disease stage 3 subtype: stage 3b (GFR 30-44) Qualified Code(s): N18.32 - Chronic kidney disease, stage 3b Code(s): N18.3 - Chronic kidney disease, stage 3 (moderate) Status: Acute Assessment and Plan: baseline creatinine runs ~ 1.4 - 1.7mg/dl in the last few years due to hypertension and chronic pre renal azotemia due to his poorly functioning heart may be an element of disease progression due to necessity of diuretic titration/escalation to treat his edema possible new baseline given #1(?) (3) CHF (congestive heart failure): Code(s): I50.9 - Heart failure, unspecified Status: Acute Assessment and Plan: evidence of right sided heart failure by Echo follow volume status closely resumed lasix and added acetazolamide (high Co2) (4) Lymphedema of both lower extremities: Code(s): I89.0 - Lymphedema, not elsewhere classified Status: Acute Assessment and Plan: chronic issue exam with thickened skin likely etiology of his recurrent cellulitis issues/problems (5) Essential (primary) hypertension: Code(s): I10 - Essential (primary) hypertension Status: Acute Assessment and Plan: BP relatively stable at this time known to have quite high BP (was previously on minoxidil) follow hemodynamics (6) AMELIA (obstructive sleep apnea): Code(s): G47.33 - Obstructive sleep apnea (adult) (pediatric) Status: Acute Assessment and Plan: continue CPAP Would not be opposed to discharge tomorrow from renal perspective if otherwise medically stable. Will continue to follow. Subjective Date/time seen: 07/28/20 15:23 Appears to be doing reasonably well at the time of my visit; good urine output with diuretic therapy and respiratory status stable if not better; no apparent distress voiced; no events/issues overnight or earlier this AM; no other complaints to conveyed. Exam Narrative: Exam Narrative: General: WD/WN male in NAD Heart: normal S1 and S2; no rub Lungs: decreased breath sounds, particularly at bases Abdomen: soft, nontender, nondistended, positive bowel sounds Extremities: no cyanosis or clubbing; 2+ edema Skin: chronic venous stasis changes noted Objective Data Vital Signs Vital Signs: Vital Signs Temp Pulse Resp BP Pulse Ox 07/28/20 14:00 36.7 C 69 20 168/96 H 94 07/28/20 06:00 36.3 C L 56 L 20 144/72 H 96 07/27/20 22:40 57 L 14 95 07/27/20 22:00 36.4 C 55 L 20 154/77 H 96 Intake/Output Intake/Output: Intake & Output 07/25/20 07/26/20 07/27/20 07/28/20 23:59 23:59 23:59 23:59 Intake Total 4549 338 8793 470 Output Total 1650 1350 1700 950 Balance 403 -657 -575 -886 Meds/Results Medications: Active Medications Generic Name Dose Route Start Last Admin Trade Name Alanis Oliva
--- NOTE | 2020-07-28 16:55 | PM.IMPN ---
Progress Note: A&P Assessment and Plan (1) Acute renal failure: Code(s): N17.9 - Acute kidney failure, unspecified Status: Acute Assessment and Plan: Acute on chronic renal failure. Baseline Cr 1.7-2. Cr on admission was 6.5. Chronology of symptoms indicative of prerenal cause, however renal cause from his recent antibiotics, foot infection etc is possible as well. Urinalysis looks bland not suggestive of overt ATN. FeNA 0.7%. He was started on gentle hydration. Urine eos negative. Tunnelled HD catheter placed 07/21. Tolerated HD 07/21, 07/22, and on 07/23. HD held off since his UOP is improving and Cr remaining stable. On Prednisone for possible AIN. Creatinine stable at 2.2. Potassium better at 4.9. Educated about the benefit of not using Aleve or Ibuprofen. ACEI remains on hold. Lasix resumed by nephrolgist. Continue steroids. Levsin added for bladder spasms. Will remove Miller. Discussed with nephrolgist who felt okay to remove tunneled catheter so brian contacted and informed of this plan. (2) Lymphedema of both lower extremities: Code(s): I89.0 - Lymphedema, not elsewhere classified Status: Acute Assessment and Plan: Patient has chronic lymphedema. Echo shows moderate pulmonary hypertension which is probably contributing to this. Currently on IV Lasix and tolerating this well. Cr stable and good UOP. Continue to monitor closely. (3) Chronic congestive heart failure: Qualifiers: Heart failure type: unspecified Qualified Code(s): I50.9 - Heart failure, unspecified Code(s): I50.9 - Heart failure, unspecified Status: Acute Assessment and Plan: Patient has a history of CHF although Echo shows his EF is 60% with normal diastolic function. Probably more likely right heart failure with his pulmonary hypertension. As above. (4) Venous stasis ulcer of right lower extremity: Code(s): I83.019 - Varicose veins of right lower extremity with ulcer of unspecified site; L97.919 - Non-pressure chronic ulcer of unspecified part of right lower leg with unspecified severity Status: Acute Assessment and Plan: Stable. Continue current wound care. (5) Hypothyroidism: Qualifiers: Hypothyroidism type: acquired Qualified Code(s): E03.9 - Hypothyroidism, unspecified Code(s): E03.9 - Hypothyroidism, unspecified Status: Acute Assessment and Plan: TSH 9.2 and low normal FT4 at 0.9. Currently on home levothyroxine 200mcg. Synthroid advanced to 225mcg. Repeat TSH as outpatient (6) Chronic venous insufficiency: Code(s): I87.2 - Venous insufficiency (chronic) (peripheral) Status: Acute Assessment and Plan: Chronic. As above. (7) CKD (chronic kidney disease) stage 3, GFR 30-59 ml/min: Qualifiers: Chronic kidney disease stage 3 subtype: stage 3b (GFR 30-44) Qualified Code(s): N18.32 - Chronic kidney disease, stage 3b Code(s): N18.3 - Chronic kidney disease, stage 3 (moderate) Status: Acute Assessment and Plan: Patient with CKD stage 3. He is followed closely by the bird keeper. As above. (8) Essential (primary) hypertension: Code(s): I10 - Essential (primary) hypertension Status: Acute Assessment and Plan: Patient's blood pressure was reviewed on 07/28 Blood pressure more elevated now. Home medications remain on hold except Lasix resumed yesterday. Was on minoxidil and quinapril at home Continue to monitor. (9) AMELIA (obstructive sleep apnea): Code(s): G47.33 - Obstructive sleep apnea (adult) (pediatric) Status: Acute Assessment and Plan: Patient is compliant with NIV. Continue the same. (10) DVT prophylaxis: Code(s): Z29.9 - Encounter for prophylactic measures, unspecified Status: Acute Assessment and Plan: Heparin Subjective Date/time seen: 07/28/20 16:55 Interv
[2020-07-28 20:28] VITALS: PULSE 68; RESP 13; O2SAT 95
[2020-07-28 21:46] VITALS: BP 148/89; PULSE 51; RESP 20; TEMP 36.4; O2SAT 96
[2020-07-29 01:30] VITALS: PULSE 60; RESP 15; O2SAT 95
[2020-07-29 06:00] VITALS: BP 150/75; PULSE 57; RESP 20; TEMP 36.3; O2SAT 96
[2020-07-29 06:32] LABS: Albumin Level 4.4 g/dL (3.5-5.1); Anion Gap 10 mmol/L (8-16); Blood Urea Nitrogen 44 mg/dL (9-20); Calcium 9.5 mg/dL (8.4-10.2); Carbon Dioxide 35 mmol/L (22-30); Chloride 100 mmol/L (98-107); Estimated CRCL calculation 49 ml/min; Estimated Glomerular Filt Rate 30; Glucose 119 mg/dL (75-110); Phosphorus 5.2 mg/dL (2.5-4.5); Potassium 4.5 mmol/L (3.4-5.0); Sodium 145 mmol/L (137-145)
--- NOTE | 2020-07-29 09:50 | PM.PROC ---
Procedure Note - Detailed Date of procedure: 07/29/20 Pre-op diagnosis: Bleeding from dialysis catheter acute renal failure Post-op diagnosis: same Procedure performed: Removal of right internal jugular 32 cm tunneled dialysis catheter Description of procedure: The patient was placed in the supine position. I then removed previously placed dressing over the right tunneled dialysis catheter. I then prepped the area with ChloraPrep. I then cut the previously placed sutures. Once the catheter was completely free of the skin sutures, I used a hemostat to bluntly dissect around the cuff in the right chest. Once I was able to freely move the catheter, I gently removed the catheter in full. I then immediately held pressure in the right neck at the level of internal jugular vein. Once pressure was held for 5 minutes, hemostasis was noted. I then placed a sterile dressing at the site in the right chest. The patient tolerated the procedure well and was alert and oriented. Anesthesia: none Surgeon: Kandy Jose MD Estimated blood loss (mL): 5 Drains: No Packing: No Pathology: none sent Complications: No immediate complications Condition: stable Disposition: floor Findings: Removal of fully intact right internal jugular 32 cm tunneled hemodialysis catheter
--- NOTE | 2020-07-29 10:36 | P.PNNP_ITS ---
Progress Note: A&P Assessment and Plan (1) Acute renal failure: Code(s): N17.9 - Acute kidney failure, unspecified Status: Acute Assessment and Plan: * suspicion falls on acute interstitial nephritis - recent antibiotic AND NSAID use - evidence of peripheral eosinophilia - on steroid therapy - start weaning -- would do prednisone taper over 2 weeks * however, chronic pre-renal azotemia could be to blame as well - moderate pulmonary HTN/large right ventricle/reduced RV function by echo leading to chronic edema - chronic diuretic use as well * evaluation to date: - prerenal urine electrolytes - renal ultrasound without acute changes - urine eosinophils negative * kidney function/creatinine stable if not better * making reasonable urine output * no plans for further HD -- follow labs and UOP - s/p removal of tunneled HD catheter (2) CKD (chronic kidney disease) stage 3, GFR 30-59 ml/min: Qualifiers: Chronic kidney disease stage 3 subtype: stage 3b (GFR 30-44) Qualified Code(s): N18.32 - Chronic kidney disease, stage 3b Code(s): N18.3 - Chronic kidney disease, stage 3 (moderate) Status: Acute Assessment and Plan: * baseline creatinine runs ~ 1.4 - 1.7mg/dl in the last few years * due to hypertension and chronic pre renal azotemia due to his poorly functioning heart * may be an element of disease progression due to necessity of diuretic titration/escalation to treat his edema * possible new baseline given #1(?) (3) CHF (congestive heart failure): Code(s): I50.9 - Heart failure, unspecified Status: Acute Assessment and Plan: * evidence of right sided heart failure by Echo * follow volume status closely * resumed lasix and added acetazolamide (high Co2) (4) Lymphedema of both lower extremities: Code(s): I89.0 - Lymphedema, not elsewhere classified Status: Acute Assessment and Plan: * chronic issue * exam with thickened skin * likely etiology of his recurrent cellulitis issues/problems (5) Essential (primary) hypertension: Code(s): I10 - Essential (primary) hypertension Status: Acute Assessment and Plan: * BP relatively stable at this time * known to have quite high BP (was previously on minoxidil) * follow hemodynamics (6) AMELIA (obstructive sleep apnea): Code(s): G47.33 - Obstructive sleep apnea (adult) (pediatric) Status: Acute Assessment and Plan: * continue CPAP Would not be opposed to discharge today from renal perspective if otherwise medically stable; he can follow-up with me in clinic as scheduled Will continue to follow. Subjective Date/time seen: 07/29/20 10:36 S/P removal of tunneled HD catheter earlier this AM and tolerated the procedure reasonably well; continues to make reasonably urine output with stability in respiratory status; no apparent distress; overall, feels significantly better. Exam Narrative: Exam Narrative: General: WD/WN male in NAD Heart: normal S1 and S2; no rub Lungs: decreased breath sounds, particularly at bases Abdomen: soft, nontender, nondistended, positive bowel sounds Extremities: no cyanosis or clubbing; 2+ chronic edema Skin: chronic venous stasis changes apparent Objective Data Vital Signs Vital Signs: Vital Signs
--- NOTE | 2020-07-29 10:36 | PM.PNNEP ---
Progress Note: A&P Assessment and Plan (1) Acute renal failure: Code(s): N17.9 - Acute kidney failure, unspecified Status: Acute Assessment and Plan: suspicion falls on acute interstitial nephritis - recent antibiotic AND NSAID use - evidence of peripheral eosinophilia - on steroid therapy - start weaning -- would do prednisone taper over 2 weeks however, chronic pre-renal azotemia could be to blame as well - moderate pulmonary HTN/large right ventricle/reduced RV function by echo leading to chronic edema - chronic diuretic use as well evaluation to date: - prerenal urine electrolytes - renal ultrasound without acute changes - urine eosinophils negative kidney function/creatinine stable if not better making reasonable urine output no plans for further HD -- follow labs and UOP - s/p removal of tunneled HD catheter (2) CKD (chronic kidney disease) stage 3, GFR 30-59 ml/min: Qualifiers: Chronic kidney disease stage 3 subtype: stage 3b (GFR 30-44) Qualified Code(s): N18.32 - Chronic kidney disease, stage 3b Code(s): N18.3 - Chronic kidney disease, stage 3 (moderate) Status: Acute Assessment and Plan: baseline creatinine runs ~ 1.4 - 1.7mg/dl in the last few years due to hypertension and chronic pre renal azotemia due to his poorly functioning heart may be an element of disease progression due to necessity of diuretic titration/escalation to treat his edema possible new baseline given #1(?) (3) CHF (congestive heart failure): Code(s): I50.9 - Heart failure, unspecified Status: Acute Assessment and Plan: evidence of right sided heart failure by Echo follow volume status closely resumed lasix and added acetazolamide (high Co2) (4) Lymphedema of both lower extremities: Code(s): I89.0 - Lymphedema, not elsewhere classified Status: Acute Assessment and Plan: chronic issue exam with thickened skin likely etiology of his recurrent cellulitis issues/problems (5) Essential (primary) hypertension: Code(s): I10 - Essential (primary) hypertension Status: Acute Assessment and Plan: BP relatively stable at this time known to have quite high BP (was previously on minoxidil) follow hemodynamics (6) AMELIA (obstructive sleep apnea): Code(s): G47.33 - Obstructive sleep apnea (adult) (pediatric) Status: Acute Assessment and Plan: continue CPAP Would not be opposed to discharge today from renal perspective if otherwise medically stable; he can follow-up with me in clinic as scheduled Will continue to follow. Subjective Date/time seen: 07/29/20 10:36 S/P removal of tunneled HD catheter earlier this AM and tolerated the procedure reasonably well; continues to make reasonably urine output with stability in respiratory status; no apparent distress; overall, feels significantly better. Exam Narrative: Exam Narrative: General: WD/WN male in NAD Heart: normal S1 and S2; no rub Lungs: decreased breath sounds, particularly at bases Abdomen: soft, nontender, nondistended, positive bowel sounds Extremities: no cyanosis or clubbing; 2+ chronic edema Skin: chronic venous stasis changes apparent Objective Data Vital Signs Vital Signs: Vital Signs Temp Pulse Resp BP Pulse Ox 07/29/20 06:00 36.3 C L 57 L 20 150/75 H 96 07/29/20 01:30 60 15 95 07/28/20 21:46 36.4 C 51 L 20 148/89 H 96 07/28/20 20:28 68 13 95 07/28/20 14:00 36.7 C 69 20 168/96 H 94 Intake/Output Intake/Output: Intake & Output 07/26/20 07/27/20 07/28/20 07/29/20 23:59 23:59 23:59 23:59 Intake Total 980 1125 990 350 Output Total 1350 1700 2350 900 Balance -370 -575 -1360 -550 Meds/Results Medications: Active Medications Generic Nam
[2020-07-29] MEDS: LORATADINE 10 MG TABLET PO (11:50)
[2020-07-29] MEDS: FUROSEMIDE 40 MG TABLET PO (11:50)
[2020-07-29] MEDS: PANTOPRAZOLE 40 MG TABLET PO (11:50)
[2020-07-29] MEDS: acetaZOLAMIDE TAB 250 MG TABLET PO (11:50)
[2020-07-29] MEDS: predniSONE 20 MG, predniSONE 10 MG 30 MG PO ×2 (11:50→17:18)
[2020-07-29] MEDS: TOLNAFTATE 1% POWDER 45 GM BTL 1 APPLIC TOPICAL (11:51)
[2020-07-29] MEDS: ASPIRIN 81 MG ENTERIC TABLET PO (11:51)
[2020-07-29] MEDS: HEPARIN SODIUM 5,000 UNITS/ML VIAL 5000 UNITS SUB-Q (11:55)
[2020-07-29 14:00] VITALS: BP 178/89; PULSE 70; RESP 20; TEMP 36.9; O2SAT 95
--- NOTE | 2020-07-29 15:11 | ECG_ITS ---
Measurements Intervals [place] Rate: 52 P: -61 GA: 100 QRS: -48 QRSD: 170 T: 99 QT: 470 QTc: 439 Interpretive Statements ECTOPIC ATRIAL BRADYCARDIA VENTRICULAR BIGEMINY RIGHT BUNDLE BRANCH BLOCK LEFT ANTERIOR FASCICULAR BLOCK BASELINE ARTIFACT- I, III, AVR, AVL, AVF, V1-V6 ABNORMAL ECG Electronically Signed On 07-29-2020 19:24:26 CDT by Reid Hubbard D.O.
--- NOTE | 2020-07-29 17:21 | PM.DS ---
DS: Admitting Diagnosis Admitting Diagnosis Admitting Diagnosis: Weakness and elevated Cr DS: Discharge Diagnosis Discharge Diagnosis (1) Acute renal failure: Code(s): N17.9 - Acute kidney failure, unspecified Status: Acute Assessment and Plan: Acute on chronic renal failure. Baseline Cr 1.7-2. Cr on admission was 6.5. Chronology of symptoms indicative of prerenal cause, however renal cause from his recent antibiotics, foot infection etc is possible as well. Urinalysis looks bland not suggestive of overt ATN. FeNA 0.7%. He was started on gentle hydration. Urine eos negative. Tunnelled HD catheter placed 07/21. Tolerated HD 07/21, 07/22, and on 07/23. HD held off since his UOP improved and Cr remained stable. On Prednisone for possible AIN. Creatinine stable at 2.2. Lasix resumed and patient had good UOP while Cr remained stable. Potassium better at 4.5. Patient educated about the benefit of not using Aleve or Ibuprofen. ACEI held. The tunneled catheter was removed on 07/29/20. Plan for steroid taper. Was having significant bladder spasms but symptoms resolved after Jackman removed. Loose stools also resolved. (2) Lymphedema of both lower extremities: Code(s): I89.0 - Lymphedema, not elsewhere classified Status: Acute Assessment and Plan: Patient has chronic lymphedema. Echo shows moderate pulmonary hypertension which is probably contributing to this. Toelrated Lasix well. (3) Chronic congestive heart failure: Qualifiers: Heart failure type: unspecified Qualified Code(s): I50.9 - Heart failure, unspecified Code(s): I50.9 - Heart failure, unspecified Status: Acute Assessment and Plan: Patient has a history of CHF although Echo shows his EF is 60% with normal diastolic function. Probably more likely right heart failure with his pulmonary hypertension. (4) Venous stasis ulcer of right lower extremity: Code(s): I83.019 - Varicose veins of right lower extremity with ulcer of unspecified site; L97.919 - Non-pressure chronic ulcer of unspecified part of right lower leg with unspecified severity Status: Acute Assessment and Plan: Stable. We continued current wound care. (5) Hypothyroidism: Qualifiers: Hypothyroidism type: acquired Qualified Code(s): E03.9 - Hypothyroidism, unspecified Code(s): E03.9 - Hypothyroidism, unspecified Status: Acute Assessment and Plan: TSH 9.2 and low normal FT4 at 0.9. Currently on home levothyroxine 200mcg. Synthroid advanced to 225mcg. Repeat TSH as outpatient. (6) Chronic venous insufficiency: Code(s): I87.2 - Venous insufficiency (chronic) (peripheral) Status: Acute Assessment and Plan: Chronic. (7) CKD (chronic kidney disease) stage 3, GFR 30-59 ml/min: Qualifiers: Chronic kidney disease stage 3 subtype: stage 3b (GFR 30-44) Qualified Code(s): N18.32 - Chronic kidney disease, stage 3b Code(s): N18.3 - Chronic kidney disease, stage 3 (moderate) Status: Acute Assessment and Plan: Patient with CKD stage 3. He is followed closely by the jewel sorter. As above. (8) Essential (primary) hypertension: Code(s): I10 - Essential (primary) hypertension Status: Acute Assessment and Plan: Patient's blood pressure was reviewed closely. Blood pressure more elevated now (SBP mostly 140-160 range). Was on minoxidil and quinapril at home but these remained on hold. Spoke with jewel sorter who recommended continuing to hold these medications and for patient to monitor BP at home. (9) AMELIA (obstructive sleep apnea): Code(s): G47.33 - Obstructive sleep apnea (adult) (pediatric) Status: Acute Assessment and Plan: Patient is compliant with NIV. We continued the same here. DS: Summary Hospital Course Reason for hospitalization: 70yo male with CKD, HTN, lymphe
[2020-08-02 07:17] LABS: Measured Lambda Chains 2.08; Total Kappa Chains 22; Total Lambda Chains 10.24
== END 2020-07-29 18:45 | disposition home or self-care (01) | DRG 673 ==
LOC: ANHED 13:41 → ANH3MEDSUR 14:43 → ANHIMU 07-21 09:11 → ANH3MEDSUR 07-25 20:57
PROVIDERS: Internal Medicine; Internal Medicine Nephrology; Surgery; Admitting Provider Hospitalist; Emergency Provider Emergency Medicine; PCP Family Medicine; Visit Provider Internal Medicine
PROC: 0JH63XZ Insertion of Tunneled Vascular Access Device into Chest Subcutaneous Tissue and Fascia, Percutaneous Approach (ICD-10-PCS; CPT 36908; principal; 2020-07-21 13:00)
DX: N17.9 Acute kidney failure, unspecified (principal); I50.33 Acute on chronic diastolic (congestive) heart failure; I13.0 Hypertensive heart and chronic kidney disease with heart failure and stage 1 through stage 4 chronic kidney disease, or unspecified chronic kidney disease; Z68.43 Body mass index [BMI] 50.0-59.9, adult; L97.919 Non-pressure chronic ulcer of unspecified part of right lower leg with unspecified severity; T82.838A Hemorrhage due to vascular prosthetic devices, implants and grafts, initial encounter; G82.22 Paraplegia, incomplete; N10 Acute pyelonephritis; Z20.822 Contact with and (suspected) exposure to COVID-19; E66.01 Morbid (severe) obesity due to excess calories; I89.0 Lymphedema, not elsewhere classified; E03.9 Hypothyroidism, unspecified; I87.2 Venous insufficiency (chronic) (peripheral); N18.32 Chronic kidney disease, stage 3b; E78.5 Hyperlipidemia, unspecified; K76.0 Fatty (change of) liver, not elsewhere classified; K21.9 Gastro-esophageal reflux disease without esophagitis; G47.33 Obstructive sleep apnea (adult) (pediatric); G62.9 Polyneuropathy, unspecified; Z90.49 Acquired absence of other specified parts of digestive tract; Z87.891 Personal history of nicotine dependence; I83.019 Varicose veins of right lower extremity with ulcer of unspecified site
CPT/HCPCS: 36415; 71045; 73630; 76775; 77001; 80048; 80053; 80069; 81001; 82550; 82570; 82948; 83874; 83880; 83883; 83935; 84132; 84155; 84156; 84165; 84166; 84300; 84439; 84443; 84480; 84540; 85025; 85027; 85610; 85652; 85730; 85999; 86038; 86060; 86160; 86162; 86215; 86334; 86335; 86704; 86706; 86803; 87340; 93005; 93306; 94002; 94003; 97110; 97116; 97163; 97165; 97530; 97535; 99291; A9270; C1750; C9803; G0257; G0378; J1644; J2405; J2704; J3010; J7030; J7040; J7512; P9047; Q9957; U0003; U0005

== ENCOUNTER 2021-05-29 13:48 | Outpatient (CLI) | payer MEDICARE, OTHER, SELFPAY ==
[2021-05-29 14:31] LABS: Anion Gap 6 mmol/L (8-16); Blood Urea Nitrogen 21 mg/dL (9-20); Calcium 8.8 mg/dL (8.4-10.2); Carbon Dioxide 30 mmol/L (22-30); Chloride 100 mmol/L (98-107); Estimated Glomerular Filt Rate 43; Glucose 104 mg/dL (65-110); Potassium 4.3 mmol/L (3.4-5.0); Sodium 136 mmol/L (137-145)
== END 2021-05-29 13:49 | disposition home or self-care (01) ==
PROVIDERS: PCP Family Medicine; Visit Provider Internal Medicine Cardiovascular Disease
DX: I50.33 Acute on chronic diastolic (congestive) heart failure (principal)
CPT/HCPCS: 36415; 80048

== ENCOUNTER 2021-06-02 14:45 | Inpatient (IN) | payer MEDICARE, OTHER, SELFPAY ==
[2021-06-02] VITALS (29 sets, daily range): BP systolic 125–159; BP diastolic 61–86; PULSE 68–79; RESP 11–24; TEMP 35.6–36.9; O2SAT 92–100; BMI 53.3
--- NOTE | ~2021-06-02 | XR_ITS ---
EXAMINATION: XR ankle LT 2V DATE: 06/14/2021 13:48 INDICATION: Left ankle pain and weakness. TECHNIQUE: 2 views of left ankle were obtained. COMPARISON: None. FINDINGS: Bone alignment is normal. No fracture. There is mild midfoot osteoarthritis. There are enth esophytes at the posterior and plantar aspects of calcaneal tuberosity. IMPRESSION: 1. Mild midfoot osteoarthritis. Reviewed, dictated and finalized at location A.
--- NOTE | ~2021-06-02 | CT_ITS ---
EXAMINATION:CT chest high resolution wo co DATE: 06/03/2021 13:40 INDICATION: Right pleural effusion. TECHNIQUE: Computed tomography (CT) of the chest was performed without intravenous contrast. Automate d exposure control and iterative reconstruction technique were employed. The dose-length product (DLP ) was 1176.20 mGy-cm. COMPARISON: Chest CT 06/21/2010 FINDINGS: There are moderate-sized right and small left pleural effusions. There is mild atelectasis in the lungs. There is dependent passive atelectasis in right lower lobe and right middle lobe. Cardi omegaly is noted. There are coronary artery calcifications. No pericardial effusion. There is at leas t a moderate volume of ascites. There is ascites and a subxiphoid hernia. Calcified mediastinal lymph nodes are consistent with old granulomatous disease. The central pulmonary arteries are enlarged, co nsistent with pulmonary arterial hypertension. There is a suture anchor in left humeral head. There a re bridging endplate osteophytes at multiple levels in the spine, consistent with diffuse idiopathic skeletal hyperostosis (DISH). IMPRESSION: 1. Moderate-sized right and small left pleural effusions. 2. Ascites. 3. Subxiphoid hernia containing ascites. 4. Cardiomegaly. Reviewed, dictated and finalized at location A. ACT CENTER ASSOCIATE
--- NOTE | ~2021-06-02 | CT_ITS ---
EXAMINATION: CTA chest PE protocol DATE: 06/04/2021 13:49 INDICATION: Dyspnea. TECHNIQUE: Computed tomography angiography (CTA) of the chest was performed with 100 mL Omnipaque-350 intravenous contrast timed to evaluate the pulmonary arteries. Coronal maximum intensity projection 3D-reconstructions were created by the technologist. Automated exposure control and iterative reconst ruction technique were employed. The dose-length product was 1331.94 mGy-cm. COMPARISON: Chest CT 06/03/2021 FINDINGS: There are moderate-sized right and small left pleural effusions. There is dependent atelect asis in the lungs. There is no pulmonary embolus. The central pulmonary arteries are enlarged, consis tent with pulmonary arterial hypertension. Cardiomegaly is noted. There are coronary artery calcifica tions. No pericardial effusion. There is ascites in the upper abdomen. There are changes of cholecyst ectomy. There are bridging endplate osteophytes at multiple levels in the spine, consistent with diff use idiopathic skeletal hyperostosis (DISH). There is moderate thoracic spondylosis. IMPRESSION: 1. No pulmonary embolus. 2. Stable moderate-sized right and small left pleural effusions. 3. Ascites. Reviewed, dictated and finalized at location A. AL PATIENT COORDINATOR
--- NOTE | ~2021-06-02 | US_ITS ---
EXAMINATION: US renal BI DATE: 06/08/2021 11:15 INDICATION: Acute kidney injury TECHNIQUE: Multiple grayscale and Doppler ultrasound images of the kidneys were obtained. COMPARISON: 06/04/2021 FINDINGS: The right kidney measures 11.4 x 4.8 x 6.3 cm. The left kidney measures 12.2 x 4.5 x 6.9 cm . The kidneys demonstrate normal parenchymal echogenicity. There is no hydronephrosis. The bladder is not distended and not evaluated. There is a small volume of ascites. Hepatomegaly is noted. IMPRESSION: 1. Normal kidneys without hydronephrosis. Reviewed, dictated and finalized at location B. OR POLISHER
--- NOTE | ~2021-06-02 | XR_ITS ---
EXAMINATION: XR fl guide central line place DATE: 06/09/2021 15:24 INDICATION: Central line placement TECHNIQUE: 3 fluoroscopic images of the chest were obtained during procedure performed by Dr. Cuenca. R adiologist was not present for the imaging or procedure. The amount of fluoroscopy time used during t his procedure was 1.8 minutes. COMPARISON: None. FINDINGS: Right subclavian central venous catheter placed over a wire with distal tip of the catheter near the superior cavoatrial junction and the wire in the right atrium. Small right pleural effusion with discoid atelectasis in the right lower lung zone. IMPRESSION: 1. Fluoroscopy utilized during placement of a right subclavian central venous catheter. See procedure note for further detail. Reviewed, dictated and finalized at location A. RTER EXPORTER IMPRESSION: 1. Fluoroscopy utilized during placement of a right subclavian central venous c atheter. See procedure note for further detail.
--- NOTE | ~2021-06-02 | XR_ITS ---
EXAMINATION: XR_[id number]_CR DATE: 06/10/2021 10:15 INDICATION: Right pleural effusion status post thoracentesis. TECHNIQUE: A single frontal view of the chest was obtained on 2 radiographs. COMPARISON: Chest single view 06/09/2021 FINDINGS: There is a small right pleural effusion. There are airspace opacities in right mid and lowe r lung zones and left lower lung zone. No pneumothorax. Cardiomegaly is noted. A right subclavian blanca tral venous catheter is seen with tip in the superior vena cava. Calcified mediastinal lymph nodes ar e consistent with old granulomatous disease. IMPRESSION: 1. Small right pleural effusion status post thoracentesis. 2. Airspace opacities in right mid and lower lung zones and left lower lung zone with slight improvem ent on the right, consistent with atelectasis versus pneumonia. 3. Cardiomegaly. Reviewed, dictated and finalized at location A. ETING TECHNOLOGY COORDINATOR IMPRESSION: 1. Small right pleural effusion status post thoracentesis. 2. Airspace opacities in right mid and lower lung zones and left lower lung zon e with slight improvement on the right, consistent with atelectasis versus pneu monia. 3. Cardiomegaly.
--- NOTE | ~2021-06-02 | XR_ITS ---
EXAMINATION: XR_CXR1VTHORA_CR DATE: 06/06/2021 12:46 INDICATION: Right pleural effusion status post thoracentesis. TECHNIQUE: A single frontal view of the chest was obtained on 2 radiographs. COMPARISON: Chest 2 views 06/02/2021, chest CT 06/04/2021 FINDINGS: There is a small right pleural effusion. There are airspace opacities in right mid and lowe r lung zones and left lower lung zone. No pneumothorax. Cardiomegaly is noted. Calcified mediastinal lymph nodes are consistent with old granulomatous disease. IMPRESSION: 1. Small right pleural effusion with improvement status post thoracentesis. 2. Airspace opacities in right mid and lower lung zones and left lower lung zones with improvement on the right, likely atelectasis. 3. Cardiomegaly. Reviewed, dictated and finalized at location A. ESS PLANNER IMPRESSION: 1. Small right pleural effusion with improvement status post thoracentesis. 2. Airspace opacities in right mid and lower lung zones and left lower lung zon es with improvement on the right, likely atelectasis. 3. Cardiomegaly.
--- NOTE | ~2021-06-02 | CT_ITS ---
EXAMINATION: CT chest abdomen pelvis wo con EXAM DATE: 06/20/2021 18:40 INDICATION: Sepsis, urinary tract infection, pleural effusion, shortness of breath, TECHNIQUE: Spiral CT of the chest, abdomen and pelvis was performed without contrast. Axial, bustos l and sagittal images chest, abdomen and pelvis were reviewed. Coronal maximum intensity pixel image s of chest reviewed. The dose-length product (DLP) for this examination was 2072.61 mGy-cm. The exp osure was tailored according to patient size (auto mA exposure control), and iterative reconstruction (ASIR) was used as additional dose reduction technique. Comparison is made to prior examination from 06/04/2021. FINDINGS: CHEST: There is moderate-sized right-sided pleural effusion. There is multi segmental right lower lob e atelectasis. Trace left pleural effusion. Moderate coronary artery calcifications. Mild cardiomegal y. There is a subxiphoid fat-containing abdominal wall hernia. No pericardial effusion. Calcified pre carinal lymph nodes from prior granulomatous process. No pathologically enlarged lymph nodes. No pneu mothorax. Patient has diffuse idiopathic skeletal hyperostosis (DISH). ABDOMEN PELVIS: Small amount of perihepatic ascites. The liver, spleen, adrenal glands and pancreas are unremarkable. There are cholecystectomy clips. Mild bilateral renal atrophy. There is no nephro lithiasis or hydronephrosis. The prostate is unremarkable. The bladder is unremarkable. There is n o retroperitoneal or pelvic lymphadenopathy. Small umbilical and supraumbilical fat-containing cesar ias. There are no findings to suggest appendicitis. There is mild to moderate scattered colonic diverticul osis. There is no adjacent inflammatory change to suggest diverticulitis. The stomach and small zuleyka l are unremarkable. There is expected amount of colonic stool. No free intraperitoneal gas. Ther e are no osteoblastic or osteolytic lesions identified. IMPRESSION: 1. Moderate right, trace left pleural effusions. 2. Multisegmental right lower lobe atelectasis. 3. Cardiomegaly. 4. Fat-containing anterior midline abdominal wall hernias. 5. Renal atrophy. 6. Scattered colonic diverticulosis. 7. Small ascites. Reviewed, dictated and finalized at location G. [facility] signed by Richar Gar M.D. on 06/20/2021 18:52 CDT
--- NOTE | ~2021-06-02 | US_ITS ---
EXAMINATION: US thoracentesis DATE: 06/06/2021 12:54 INDICATION: pleural effusion TECHNIQUE: The procedure and its risks, benefits, and alternatives were discussed with the patient. P otential risks discussed included bleeding, infection, and pneumothorax. The patient understood the r isks and agreed to proceed. The skin was prepped and draped in sterile fashion. 1% lidocaine was used for local anesthesia. Under ultrasound guidance, a 5 Fr catheter with trochar was advanced into the right pleural effusion. Fluid was aspirated. The catheter was removed, and a dressing was applied. Th ere were no immediate complications. FINDINGS: Ultrasound images demonstrate a right pleural effusion and the catheter within the fluid. IMPRESSION: 1. Successful ultrasound-guided thoracentesis yielding 925 mL of yellow fluid. Reviewed, dictated and finalized at location A. TRIMMER
--- NOTE | ~2021-06-02 | XR_ITS ---
XR chest 2V 06/12/2021 10:04 Indication: Shortness of breath Procedure: 2 view chest Comparison: Comparison to multiple prior studies sequentially, with oldest reviewed study dated 10/2021. Findings: Cardiomegaly. Persistent bilateral interstitial infiltrates. No pneumothorax. Small pleural effusions. Central line tip in the SVC. Impression: 1: Persistent bilateral interstitial infiltrates which may represent edema or pneumonia. 2: Small pleural effusions. 3: Cardiomegaly. Reviewed, dictated and finalized at location B. Impression: 1: Persistent bilateral interstitial infiltrates which may represent edema or p neumonia. 2: Small pleural effusions. 3: Cardiomegaly.
--- NOTE | ~2021-06-02 | US_ITS ---
US abdomen complete EXAMINATION: US Abdomen Complete INDICATION: Ascites. PROCEDURE: Realtime High Resolution abdomen ultrasound. COMPARISON: CT dated 06/04/2021 FINDINGS: Gallbladder is surgically absent. Common bile duct measures 6 mm. Liver echotexture is increased, consistent with hepatic steatosis. There is nodular liver surface, co nsistent with cirrhosis. There is ascites.. Pancreas within normal limits. Pancreatic tail is obscu red by bowel gas. Spleen is enlarged measuring 19 cm. Renal echotexture is within normal limits bila terally without hydronephrosis, contour deforming mass or renal stone. Right kidney measures 10.4 cm. Left kidney measures 11.5 cm. Visualized aspects of the aorta and IVC are within normal limits. Portal vein is patent with to and f ro flow, consistent with portal hypertension. No sonographic Hawkins's sign indicated by the technolog ist. IMPRESSION: 1: Cirrhosis with portal hypertension, splenomegaly and ascites. Reviewed, dictated and finalized at location A. WARE QA SYSTEM SPECIALIST
--- NOTE | ~2021-06-02 | US_ITS ---
EXAMINATION: US venous doppler [facility] DATE: 06/03/2021 08:38 INDICATION: Lower limb swelling. TECHNIQUE: Grayscale ultrasound images without and with compression and Doppler ultrasound images of the bilateral lower extremity veins were obtained. COMPARISON: None. FINDINGS: The visualized portions of right common femoral vein, profunda (deep) femoral vein, femoral vein, pop liteal vein, peroneal veins, posterior tibial veins, and greater saphenous vein outflow are patent. The visualized portions of left common femoral vein, profunda femoral vein, femoral vein, popliteal v ein, peroneal veins, posterior tibial veins, and greater saphenous vein outflow are patent. IMPRESSION: 1. No deep venous thrombosis. Reviewed, dictated and finalized at location A. UCTION MANAGER
--- NOTE | ~2021-06-02 | US_ITS ---
US pelvic limited 06/04/2021 15:38 Indication: Evaluate bladder. Procedure: High-resolution ultrasound of the pelvis using transabdominal technique Comparison: No prior studies for comparison. Findings: Bladder wall is mildly thickened measuring 7 mm. Free fluid is noted in the pelvis, nonspec ific. Impression: 1: Mild bladder wall thickening measuring 7 mm. Consider cystitis in the appropriate clinical setting . 2: Ascites. Reviewed, dictated and finalized at location A. ACT WORKER LITHOGRAPHY Impression: 1: Mild bladder wall thickening measuring 7 mm. Consider cystitis in the approp riate clinical setting. 2: Ascites.
--- NOTE | ~2021-06-02 | XR_ITS ---
EXAMINATION: XR chest port-a-cath/central DATE: 06/09/2021 15:35 INDICATION: Young catheter placement TECHNIQUE: frontal view of the chest was obtained. COMPARISON: Chest radiograph dated 06/09/2021 11:47 AM FINDINGS: Dual-lumen right subclavian central venous catheter with distal tip at the caudal superior vena cava. Streaky atelectasis at the left lung base. Small to moderate-sized right pleural effusion with opaci ties in the lower lung zone which could represent associated atelectasis and/or pneumonia. No pneumot horax or left-sided pleural effusion. Cardiomegaly. Calcified right paratracheal lymph nodes consiste nt with old granulomatous disease. IMPRESSION: 1. Right subclavian central venous catheter tip at the caudal superior vena cava. 2. Small to moderate-sized right pleural effusion with associated atelectasis and/or pneumonia at the lower lung zone. 3. Cardiomegaly. Reviewed, dictated and finalized at location A. GER CORPORATE IMPRESSION: 1. Right subclavian central venous catheter tip at the caudal superior vena cav a. 2. Small to moderate-sized right pleural effusion with associated atelectasis a nd/or pneumonia at the lower lung zone. 3. Cardiomegaly.
--- NOTE | ~2021-06-02 | XR_ITS ---
XR chest 2V 06/02/2021 15:31 Indication: Shortness of breath and chest pressure. CHF. Procedure: 2 view chest Comparison: Comparison to multiple prior studies sequentially, with oldest reviewed study dated 07/14. Findings: There is airspace disease of the right mid and lower lung. There is right pleural effusion. Cardiomegaly. Left lung clear. No pneumothorax. Impression: 1: Right basilar airspace consolidation which may represent pneumonia and/or atelectasis. 2: Moderate right pleural effusion. 3: Cardiomegaly. Reviewed, dictated and finalized at location A. STITCH SLEEVE SETTER Impression: 1: Right basilar airspace consolidation which may represent pneumonia and/or at electasis. 2: Moderate right pleural effusion. 3: Cardiomegaly.
--- NOTE | ~2021-06-02 | US_ITS ---
EXAMINATION: US thoracentesis DATE: 06/10/2021 10:23 INDICATION: pleural effusion TECHNIQUE: The procedure and its risks, benefits, and alternatives were discussed with the patient. P otential risks discussed included bleeding, infection, and pneumothorax. The patient understood the r isks and agreed to proceed. The skin was prepped and draped in sterile fashion. 1% lidocaine was used for local anesthesia. Under ultrasound guidance, a 5 Fr catheter with trochar was advanced into the right pleural effusion. Fluid was aspirated. The catheter was removed, and a dressing was applied. Th ere were no immediate complications. FINDINGS: Ultrasound images demonstrate a right pleural effusion and the catheter within the fluid. IMPRESSION: 1. Successful ultrasound-guided thoracentesis yielding 1000 mL of clear, yellow fluid. Reviewed, dictated and finalized at location A. NEER INTERNSHIP IMPRESSION: 1. Successful ultrasound-guided thoracentesis yielding 1000 mL of clear, yello w fluid.
--- NOTE | ~2021-06-02 | XR_ITS ---
EXAMINATION: XR chest 1V portable DATE: 06/09/2021 11:57 INDICATION: Shortness of breath. Pleural effusion. TECHNIQUE: A single frontal view of the chest was obtained on 2 radiographs. COMPARISON: Chest single view 06/06/2021, chest CT 06/04/2021 FINDINGS: There is a small right pleural effusion. There are airspace opacities in right mid and lowe r lung zones. There is mild atelectasis at left lung base. No pneumothorax. Cardiomegaly is noted. Ca lcified mediastinal lymph nodes are consistent with old granulomatous disease. IMPRESSION: 1. Worsened airspace opacities in right mid and lower lung zones, consistent with atelectasis versus pneumonia. 2. Worsened small right pleural effusion. 3. Cardiomegaly. Reviewed, dictated and finalized at location A. R HOUSE CONTROL ROOM OPERATOR IMPRESSION: 1. Worsened airspace opacities in right mid and lower lung zones, consistent wi th atelectasis versus pneumonia. 2. Worsened small right pleural effusion. 3. Cardiomegaly.
--- NOTE | 2021-06-02 15:12 | ECG_ITS ---
Measurements Intervals [place] Rate: 76 P: HI: 0 QRS: -53 QRSD: 170 T: -2 QT: 448 QTc: 504 Interpretive Statements ATRIAL FIBRILLATION WITH ABERRANT CONDUCTION MARKED LEFT AXIS DEVIATION [QRS AXIS < -30] RIGHT BUNDLE BRANCH BLOCK [120+ ms QRS DURATION, UPRIGHT V1, 40+ ms S IN I/aVL/V4/V5/V6] COMPARED TO ECG 07/29/2020 15:37:57 ATRIAL FIBRILLATION REPLACES SINUS RHYTHM Electronically Signed On 06-02-2021 16:03:11 ASSORTER LAUNDRY by Anirudh Wise M.D.
--- NOTE | 2021-06-02 15:46 | PC.NURSE ---
Dr. Quarles at [facility] to assess pt.
[2021-06-02 16:02] LABS: Basophils Absolute Auto 0.1 K/mm3 (0.0-0.1); Eosinophils Absolute Auto 0.2 K/mm3 (0-0.3); Eosinophils Percent Auto 2.5 % (0-4.4); Hematocrit 42.9 % (42.0-52.0); Hemoglobin 12.5 g/dL (14.0-18.0); Immature Granulocyte Absolute 0.02 K/mm3 (0.00-0.031); Immature Granulocyte Percent A 0.3 % (0-0.5); Lymphocytes Absolute Auto 0.98 K/mm3 (0.9-3.2); Lymphocytes Percent Auto 13.5 % (18.3-44.2); Mean Corpuscular HGB Conc 29.1 g/dl (32-36); Mean Corpuscular Hemoglobin 26.1 pg (26-34); Mean Corpuscular Volume 89.6 fl (80-100); Monocytes Absolute Auto 0.7 K/mm3 (0.1-0.6); Monocytes Percent Auto 9.9 % (2.6-8.5); Neutrophils Absolute Auto 5.3 K/mm3 (1.3-6.7); Neutrophils Percent Auto 72.8 % (45.5-73.1); Platelet Count Result 343 k/mm3 (150-375); Red Blood Count 4.79 M/mm3 (4.6-6.20); Red Cell Distribution Width 16.2 % (11.5-14.5); White Blood Count 7.3 K/mm3 (4.5-10.0)
--- NOTE | 2021-06-02 16:10 | ED.SOB ---
HPI - SOB/Dyspnea General Chief Complaint: Shortness of Breath/Dyspnea Stated Complaint: sob Time Seen by Provider: 06/02/21 15:32 Source: patient History of Present Illness HPI Narrative: Patient presents with edema and shortness of breath. He reports a history of CHF and chronic kidney disease he had an episode approximately a year ago which required admission due to his edema. Feels like similar symptoms are happening now. After his admission reports he has been doing well follow-up with his wastewater superintendent Dr. Spangler as well as Dr. Al. However the past couple months he is noted increased edema and decreased urine output. Reports he is normally able to fill up two 22 ounce urinals in a 24-hour. However most recently has only been able to fill up half of one urinal. He also reports shortness of breath causing difficulty getting around the house. Related Data Home Medications Medication Instructions Recorded Confirmed aspirin 81 mg tablet,delayed 81 mg PO DAILY 04/07/19 06/02/21 release minoxidil 10 mg tablet 10 mg PO DAILY 04/07/19 06/02/21 omeprazole magnesium 20 mg 20 mg PO DAILY 04/07/19 06/02/21 tablet,delayed release fluticasone propionate 50 1 spray INTRANASAL DAILY 07/12/20 06/02/21 mcg/actuation nasal spray,suspension loratadine 10 mg tablet 10 mg PO DAILY 07/12/20 06/02/21 acetaminophen 325 mg capsule 325 mg PO Q6H PRN 04/20/21 06/02/21 furosemide 40 mg tablet 40 mg PO QID tablet 04/20/21 06/02/21 potassium chloride 20 mEq 20 meq PO DAILY 04/20/21 06/02/21 tablet,extended release(part/cryst) levothyroxine 200 mcg tablet 25 mcg PO QAM tablet 04/21/21 06/02/21 polyethylene glycol 3350 [Miralax] 17 g PO PRN 06/02/21 06/02/21 psyllium [Metamucil] PO PRN PRN 06/02/21 Allergies Allergy/AdvReac Type Severity Reaction Status Date / Time Sulfa (Sulfonamide Allergy Mild Rash Verified 04/20/21 13:08 Antibiotics) Penicillins Allergy Unknown SWELLING Verified 04/20/21 13:08 codeine AdvReac Mild N/V Verified 04/20/21 13:08 hydrocodone AdvReac Mild N/V Verified 04/20/21 13:08 tramadol AdvReac Mild Nausea Verified 04/20/21 13:08 Review of Systems Review of Systems: CONSTITUTIONAL: Denies fever, chills, or sweats. EYES: Denies visual changes, redness, or discharge. ENT: Denies rhinorrhea, congestion, sore throat, or otalgia. CARDIOVASCULAR: Denies chest pain, palpitations, or edema. RESPIRATORY: Denies cough. GASTROINTESTINAL: Denies abdominal pain, nausea, vomiting, or diarrhea. GENITOURINARY: Denies dysuria or hematuria. SKIN: Denies rash or itching. MUSCULOSKELETAL: Denies back pain, joint pain, or myalgia. NEUROLOGIC: Denies headache, numbness, dizziness, or weakness. PSYCHIATRIC: Denies anxiety or depression. All systems reviewed & are unremarkable except as noted in HPI and below PMFSH Past Medical History Medical History Chronic congestive heart failure Review of his EMR last recorded Echocardiogram on 10/2017 showed EF 68% with grade II diastolic dysfunction. Chronic low back pain Chronic venous insufficiency CKD (chronic kidney disease) stage 3, GFR 30-59 ml/min Dyslipidemia Environmental allergies Essential (primary) hypertension GERD without esophagitis Hypothyroidism Lymphedema of both lower extremities Ocular rosacea AMELIA (obstructive sleep apnea) Peripheral polyneuropathy Rosacea Surgical History Surgical History H/O eye surgery (~2005) [id number] [facility] History of cholecystectomy (~2008) History of discectomy 2013 History of foot surgery Left Foot History of rotator cuff surgery bilateral History of thoracic surgery Pericardial effusion s/p pericardial window thought secondary to minoxidil, in 2010 at [facility] Family History Family History Father Cardiovascular disease Grandparent Cancer Moth
[2021-06-02 16:11] LABS: Hypochromasia 1+ (NORMAL); Ovalocytes 1+ (NORMAL); Platelet Estimate Adequate (Adequate)
[2021-06-02 16:13] LABS: INR 1.3; Prothrombin Time 15.9 Seconds (11.1-14.7)
[2021-06-02 16:14] LABS: Alanine Aminotransferase 8 U/L (4-50); Albumin Level 4.2 g/dL (3.5-5.1); Alkaline Phosphatase 68 U/L (38-126); Anion Gap 6 mmol/L (8-16); Aspartate Amino Transferase 29 U/L (17-59); Bilirubin,Total 0.9 mg/dL (0.2-1.3); Blood Urea Nitrogen 21 mg/dL (9-20); Calcium 8.7 mg/dL (8.4-10.2); Carbon Dioxide 32 mmol/L (22-30); Chloride 100 mmol/L (98-107); Estimated CRCL calculation 69 ml/min; Estimated Glomerular Filt Rate 46; Glucose 87 mg/dL (65-110); Partial Thromboplastin Time 29.2 SECONDS (22.3-36.8); Sodium 138 mmol/L (137-145)
[2021-06-02 16:24] LABS: NT Pro B Type Natriuretic Pept 12700 pg/mL (5-100)
[2021-06-02] MEDS: FUROSEMIDE INJ 100 MG/10 ML VIAL 80 MG IV PUSH (18:12)
--- NOTE | 2021-06-02 20:01 | PM.IMHP ---
H&P: HPI History of Present Illness Date/Time: 06/02/21 20:01 Chief Complaint: SHORTNESS OF BREATH. Narrative: This is a 71-year-old male with past medical history significant for obesity, pericardial window, hypothyroidism, congestive heart failure, chronic low back pain, chronic venous insufficiency, gastroesophageal reflux disease, chronic lymphedema, hypertension, strict of sleep apnea on BiPAP at nighttime, peripheral polyneuropathy, rosacea. Patient presented to the emergency room due to worsening shortness of breath, bilateral lower extremity swelling, increased abdominal girth, PND, orthopnea, fatigue, decreased stamina. Patient denies any fevers, rigors ,chills ,cough or sputum production, no chest pain, no palpitations, no syncope, near syncope, dizziness or lightheadedness, patient has had progressive difficulty with with ambulation due to swelling he uses a walker as an aid. Preliminary workup was significant for brain natriuretic peptide [id number] a chest x-ray showed right pleural effusion. Patient has been admitted for further evaluation management and treatment. Review of Systems Review of Systems: Shortness of breath for side exertion now at rest, worsening, increased abdominal girth. Constitutional: Constitutional: Denies chills, Reports difficulty sleeping, Denies fever(s), Reports lethargy, Denies malaise, Reports weakness and Reports weight gain Eyes: Eyes: Denies change in vision ENT: Denies dysphagia, Denies vertigo, Denies dizziness, Denies nasal congestion, Denies nasal discharge, Denies nasal obstruction and Denies odynophagia Cardiovascular: Cardiovascular: Denies chest pain, Denies chest pain with activity, Denies syncope, Reports pedal edema, Reports edema, Denies claudication, Reports leg ulcers (Weeping), Reports leg edema, Denies lightheadedness, Denies radiating jaw, neck or arm pain, Denies palpitations, Reports dyspnea, Reports dyspnea on exertion and Reports orthopnea Respiratory: Respiratory: Denies cough and Denies excessive phlegm production Comments: Wears BiPAP at nighttime. Gastrointestinal: Gastrointestinal: Denies abdominal pain, Denies dyspepsia, Denies heartburn, Denies nausea and Denies vomiting Comments: Increased abdominal girth Genitourinary: Genitourinary: Denies dysuria Musculoskeletal: Musculoskeletal: Reports limited range of motion and Reports muscle weakness Comments: Bilateral lower extremity. Integumentary/Breasts: Skin/Breast: Reports swelling, Reports skin swelling and Reports skin ulcer Neurologic: Denies syncope, Denies focal weakness, Denies radicular pain and Denies Sensory deficit (Neuro) Psychiatric: Psychiatric: Reports no additional psychiatric complaints and Reports as per HPI Endocrine: Endocrine: Denies cold intolerance, Denies heat intolerance, Denies polyphagia, Denies polydipsia and Denies palpitations Hematologic/Lymphatic: Hematologic/Lymphatic: Reports no additional hematologic/lymphatic complaints and Reports as per HPI Allergic/Immunologic: Allergic/Immunologic: Reports no additional allergic/immunologic complaints and Reports as per HPI PMFSH Past Medical History Medical History Chronic congestive heart failure Review of his EMR last recorded Echocardiogram on 10/2017 showed EF 68% with grade II diastolic dysfunction. Chronic low back pain Chronic venous insufficiency CKD (chronic kidney disease) stage 3, GFR 30-59 ml/min Dyslipidemia Environmental allergies Essential (primary) hypertension GERD without esophagitis Hypothyroidism Lymphedema of both lower extremities Ocular rosacea AMELIA (obstructive sleep apnea) Peripheral polyneuropathy Rosacea Surgical History Surgical History H/O eye surgery (~2005) [id number] [facility] History of cholecystectomy (~2008) History of discectomy 2013 History of foot surgery Left Foot History of rotator cuff surger
[2021-06-02] MEDS: DOXYCYCLINE 100 MG/NS 100 ML 100 MG/100 ML BAG IVPB (22:08)
[2021-06-02] MEDS: GABAPENTIN 300 MG CAPSULE PO (22:10)
[2021-06-03] VITALS (16 sets, daily range): BP systolic 124–151; BP diastolic 60–77; PULSE 65–128; RESP 16–24; TEMP 36.1–37.8; O2SAT 88–98
[2021-06-03] MEDS: LEVOTHYROXINE SODIUM 25 MCG TABLET PO (05:33)
--- NOTE | 2021-06-03 06:00 | ECHO_ITS ---
Patient Info Name: Irwin Cyr Age: 71 years : 1950 Gender: Male Ht: 73 in Wt: 404 lbs BSA: 3.17 m2 HR: 79 bpm BP: 127 / 62 mmHg Heart Rhythm: Atrial Fibrillation Technical Quality: Poor Exam Date: 06/03/2021 8:16 AM Exam Location: [facility] Patient Status: Inpatient Admit Date: 06/02/2021 Staff Ordering Physician: Rui Quarles MD Pilot Safety Inspector: Liss Kennedy RDCS Attending Provider: Ailyn Vega Referring Physician: Willam GARDNER; Exam Type: CA echo dop color flow w con Study Info Indications I50.9 - Heart failure, unspecified Complete two-dimensional, color flow and Doppler transthoracic echocardiogram is performed with contrast to opacify the left ventricle and to improve the deliniation of the left ventricle endocardial borders. Contrast/Agitated Saline Contrast/Ag. Saline: Definity Amount: 4.00 ml Reason for Poor Study: patient body habitus Summary 1. Very technically difficult study with limited views despite definity echo contrast enhancement. Regional wall motion assessment limited due to poor endomyocardial border definition. 2. Left ventricular chamber dimension is normal. 3. Left ventricular systolic function is normal, estimated at 60-65%. 4. There is mildly increased left ventricular wall thickness. 5. Right ventricular chamber dimension is severely enlarged. 6. Right ventricular systolic function is moderate to severely reduced. 7. Left atrial chamber dimension is severely enlarged. 8. Right atrial chamber dimension is severely enlarged. 9. There is mild tricuspid valve regurgitation. 10. Moderate pulmonary hypertension, estimated pulmonary arterial systolic pressure is 51 mmHg. Left Ventricle Very technically difficult study with limited views despite definity echo contrast enhancement. Regional wall motion assessment limited due to poor endomyocardial border definition. Left ventricular chamber dimension is normal. Left ventricular systolic function is normal, estimated at 60-65%. There is mildly increased left ventricular wall thickness. Left ventricular septal wall motion is abnormal with septal motion related to bundle branch block. The left ventricular diastolic function is indeterminate. Right Ventricle Right ventricular chamber dimension is severely enlarged. Right ventricular systolic function is moderate to severely reduced. Left Atria Left atrial chamber dimension is severely enlarged. Right Atria Right atrial chamber dimension is severely enlarged. Aortic Valve The aortic valve is not well visualized. There is no aortic valve stenosis. There is no aortic valve regurgitation. Pulmonic Valve The pulmonic valve is not well visualized. Mitral Valve The mitral valve has normal leaflets. There is trace mitral valve regurgitation. Tricuspid Valve The tricuspid valve leaflets are not well visualized. There is mild tricuspid valve regurgitation. Moderate pulmonary hypertension, estimated pulmonary arterial systolic pressure is 51 mmHg. Pericardium/Pleural The pericardium appears not well visualized. Aorta The aortic root size at the sinus of Valsalva is not well visualized. Left Ventricular Outflow Tract Name Value Normal LVOT 2D
[2021-06-03] MEDS: PERFLUTREN LIPID MICROSPHERES 1.5 ML VIAL DILUTED TO 10 ML TOTAL VOLUME IV PUSH (08:16)
[2021-06-03] MEDS: ASPIRIN 81 MG ENTERIC TABLET PO (08:22)
[2021-06-03] MEDS: PANTOPRAZOLE 40 MG TABLET PO (08:23)
[2021-06-03] MEDS: FLUTICASONE PROPIONATE 0.05% NA SPR 16 GM BTL (*BKC) 1 SPRAY NASAL (08:23)
[2021-06-03] MEDS: minoxidiL 10 MG TABLET PO (08:23)
[2021-06-03] MEDS: FUROSEMIDE INJ 40 MG/4 ML VIAL IV PUSH (08:23)
[2021-06-03] MEDS: GABAPENTIN 300 MG CAPSULE PO ×4 (08:23→20:22)
[2021-06-03] MEDS: LORATADINE 10 MG TABLET PO (08:23)
[2021-06-03] MEDS: TOLNAFTATE 1% POWDER 45 GM BTL 1 APPLIC TOPICAL (08:30)
--- NOTE | 2021-06-03 10:42 | PM.IMPN ---
Progress Note: A&P Additional Plan Assessment and plan (1) Acute on chronic heart failure: Code(s): I50.9 - Heart failure, unspecified Status: Acute Assessment and Plan: - Continue telemetry - Aggressive diuresis with IV Lasix 40 mg BID. Pt. received 80 mg IV in ER. - Fluid restriction to 1500 cc daily - Echocardiogram result pending. - Cardiology consult - Monitor labs and VS. (2) Morbid obesity with BMI of 50.0-59.9, adult: Code(s): E66.01 - Morbid (severe) obesity due to excess calories; Z68.43 - Body mass index [BMI] 50.0-59.9, adult Status: Acute Assessment and Plan: - Carb consistent diet - Lifestyle and diet modifications as tolerated. (3) Chronic venous insufficiency: Code(s): I87.2 - Venous insufficiency (chronic) (peripheral) Status: Acute Assessment and Plan: - Apply Jayesh wraps - Wound care consult (4) GERD without esophagitis: Code(s): K21.9 - Gastro-esophageal reflux disease without esophagitis Status: Acute Assessment and Plan: - Continue PPI, Protonix 40 mg po daily. (5) Dyslipidemia: Code(s): E78.5 - Hyperlipidemia, unspecified Status: Acute Assessment and Plan: - Not medicated. Unsure why. Will check Lipid panel and initiate coverage as necessary. (6) Essential (primary) hypertension: Code(s): I10 - Essential (primary) hypertension Status: Acute Assessment and Plan: - Continue minoxidil (7) Peripheral polyneuropathy: Code(s): G62.9 - Polyneuropathy, unspecified Status: Acute Assessment and Plan: - Continue gabapentin (8) AMELIA (obstructive sleep apnea): Code(s): G47.33 - Obstructive sleep apnea (adult) (pediatric) Status: Acute Assessment and Plan: - Continue BiPAP at nighttime. Time Spent With Patient Time with patient: 15 - 25 minutes Subjective Date/time seen: 06/03/21 0820 This pt. was examined at the bedside in interval assessment. The pt. endorses continued dyspnea that is worse with even minimal exertion. The pt. has no current pain, but does admit that he continually feels Dyspneic. No palpitations. His ECHO has been performed this morning. We are awaiting the read of the ECHO as well as the Cardiology consult. He has no new complaints, symptoms or concerns to report today. He is receiving Lasix 40 mg IVP BID. Review of Systems Review of Systems: A full 12 point ROS was performed and is otherwise unremarkable with exception of what is in HPI. All systems reviewed & are unremarkable except as noted in HPI and below Exam Narrative: Const: General: cooperative, comfortable, no acute distress, well developed, alert, awake and ill appearing chronically Nutritional Appearance: obese morbidly obese Orientation/consciousness: patient oriented x3 HENMT: Head: normal to inspection, normocephalic and atraumatic Ears: hearing grossly normal bilaterally General nose exam: Normal external nose present Face and sinus: normal facial exam Mouth: Yes Normal oral and palatal mucosa present Eyes: General: appearance normal, both eyes and all related structures Alignment and Position: alignment normal Sclera: sclerae normal Pupils: Equal, round and reactive pupils present EOM: EOMs intact bilaterally Neck: Neck: normal visual inspection, full ROM, no lymphadenopathy, supple and no JVD Thyroid: thyroid normal Lymphatic: no lymphadenopathy noted Resp: Effort & Inspection: normal respiratory effort and able to speak in complete sentences Auscultation: clear to auscultation bilaterally, no crackles, no rales, no rhonchi, no wheezes and diminished lung sounds on the right (base) Cardio: Jugular venous distension: no JVD Rate: regular rate Rhythm: abnormal rhythm irregularly irregular Heart sounds: S1 normal heart sound present and S2 normal heart sound present GI: Inspection: Abdominal wall edema and distended GI Palp: Yes Soft to palpation, No Tenderne
--- NOTE | 2021-06-03 12:18 | PM.CNCAR ---
Assessment and Plan Assessment and plan (1) Acute on chronic heart failure with preserved ejection fraction: Code(s): I50.33 - Acute on chronic diastolic (congestive) heart failure Status: Acute Assessment and Plan: patient with evidence of right and left heart failure and history of preserved systolic function. This may be complicated by renal insufficiency, obesity hypoventilation syndrome, and possibly new diagnosis atrial fibrillation. He is not reporting anginal symptoms. Troponins negative. - Increase Lasix to 60 mg IV q.8 hours. Will monitor response. Discussed transition to continuous Lasix infusion at 10 milligram/hour, however, this would require transfer to another floor and likely Miller catheter insertion. Patient notes history of severe bladder spasms with Miller catheter in the past so will try to avoid as much as possible. Recommendations to follow. - Will review 2D echocardiogram when available. - Less than 2 g daily sodium intake restriction. Accurate input and output, daily weight. CHF counseling. (2) New onset atrial fibrillation: Code(s): I48.91 - Unspecified atrial fibrillation Status: Acute Assessment and Plan: New onset atrial fibrillation, appears paroxysmal on telemetry along with possible intermittent junctional escape rhythm. Sinus rhythm not readily observed. Heart rate reasonably controlled without AV orquidea blocking agents. As such, I would be cautious with AV orquidea blocking agents given underlying bundle-branch block, intermittent junctional rhythm, and fairly controlled heart rate in atrial fibrillation suggestive of significant underlying conduction system disease. CHADS2 Vasc score 4. Discussed embolic CVA risk with A. Fib. Systemic anticoagulation advised. Eliquis 5 mg b.i.d.. Care coordination to [place]. Explained risk versus bleeding and stroke risk reduction. Significant concerns with regards to patient's inability to tolerate cardioversion as he would require SEDRICK guidance as duration remains unknown and appears has been paroxysmal as it was not noted in the office at his last visit 05/29/21. - Continue to monitor telemetry. Recheck TSH. 5.4 on 04/20/2021. (3) Essential (primary) hypertension: Code(s): I10 - Essential (primary) hypertension Status: Acute Assessment and Plan: not ideally controlled. remains on minoxidil (4) CKD (chronic kidney disease) stage 3, GFR 30-59 ml/min: Qualifiers: Chronic kidney disease stage 3 subtype: stage 3b (GFR 30-44) Qualified Code(s): N18.32 - Chronic kidney disease, stage 3b Code(s): N18.3 - Chronic kidney disease, stage 3 (moderate) Status: Acute Assessment and Plan: Stable at present. Monitor closely as well as electrolytes with diuresis. (5) AMELIA (obstructive sleep apnea): Code(s): G47.33 - Obstructive sleep apnea (adult) (pediatric) Status: Acute Assessment and Plan: compliance with BiPAP. May need to reassess efficacy with apnea link overnight and pulmonology.. (6) Lymphedema of both lower extremities: Code(s): I89.0 - Lymphedema, not elsewhere classified Status: Acute Assessment and Plan: Chronic. DVT prophylaxis. Wound care. Jayesh wraps. No DVT on lower extremity venous Dopplers. (7) Pulmonary hypertension: Code(s): I27.20 - Pulmonary hypertension, unspecified Status: Acute Assessment and Plan: Will reassess by echocardiogram. This may also be contributing edema, shortness of breath severity. Very likely secondary to obesity hypoventilation syndrome. History of Present Illness History of Present Illness Consult date/time: Date of service:06/03/21 12:18 Cardiology consultation at the request of Dr. Brewster of the [facility] service for our opinion regarding shortness of breath and CHF. Requesting physician: Jackie Brewster MD Consult reason: congestive heart failure Re
[2021-06-03] MEDS: FUROSEMIDE INJ 100 MG/10 ML VIAL 60 MG IV PUSH ×2 (14:10→20:21)
--- NOTE | 2021-06-03 15:41 | PCRCNOTE ---
Pt's home BiPAP was brought in. Maintenance checked it over. Signed consent form was obtained and placed in pt's chart. Pt's machine was set up, including adding water to the humidifier. Pt states that he does not need supplemental O2 with it.
[2021-06-03] MEDS: DOXYCYCLINE 100 MG/NS 100 ML 100 MG/100 ML BAG IVPB (17:29)
[2021-06-03] MEDS: APIXABAN 5 MG TABLET PO (20:22)
[2021-06-03] MEDS: ACETAMINOPHEN 325 MG TABLET PO (20:23)
[2021-06-03] MEDS: ONDANSETRON INJ 4 MG/2 ML VIAL IV PUSH (21:10)
[2021-06-03] MEDS: METOPROLOL TARTRATE 50 MG TAB PO (21:58)
[2021-06-04] VITALS (11 sets, daily range): BP systolic 110–123; BP diastolic 43–72; PULSE 68–113; RESP 16–22; TEMP 36.3–37.6; O2SAT 80–98
[2021-06-04] MEDS: FUROSEMIDE INJ 100 MG/10 ML VIAL 60 MG IV PUSH (05:29)
[2021-06-04] MEDS: LEVOTHYROXINE SODIUM 25 MCG TABLET PO (05:29)
[2021-06-04 05:32] LABS: Cholesterol 91 mg/dL (0-200); HDL Direct 23 mg/dL; Triglycerides 102 mg/dL (<150)
[2021-06-04 05:43] LABS: LDL Cholesterol Direct 48 mg/dL
[2021-06-04 09:19] LABS: Hematocrit 41.3 % (42.0-52.0); Hemoglobin 11.6 g/dL (14.0-18.0); Mean Corpuscular HGB Conc 28.1 g/dl (32-36); Mean Corpuscular Hemoglobin 25.9 pg (26-34); Mean Corpuscular Volume 92.2 fl (80-100); Mean Platelet Volume 10.4 fl (7.4-10.4); Platelet Count Result 312 k/mm3 (150-375); Red Blood Count 4.48 M/mm3 (4.6-6.20); Red Cell Distribution Width 16.3 % (11.5-14.5); White Blood Count 15.3 K/mm3 (4.5-10.0)
--- NOTE | 2021-06-04 09:28 | PM.IMPN ---
Progress Note: A&P Additional Plan Assessment and plan (1) Acute on chronic heart failure: Code(s): I50.9 - Heart failure, unspecified Status: Acute Assessment and Plan: - Continue telemetry - Aggressive diuresis with IV Lasix 60 mg TID. Cardiology managing Lasix dosing. May benefit from Lasix drip. - Fluid restriction to 1500 cc daily - ECHO with evidence of both left and right HFpEF. - Cardiac diet to decrease Sodium intake. - Monitor labs and VS. - Accurate I&O - Daily weights (2) Fever of unknown origin - Temperature last evening of 100.1. - Pt. became tachypneic and tachycardic with it as well. - Etiology unknown. Will check labs including COVID and Flu swabs. - CTA of chest ordered PE protocol. - Check UA. - WBC today increased from 7.3-->15.3. - Will order a Procalcitonin, Lactic acid, LDH, CRP, and BC x2. (3) Acute Kidney Injury - Renal function today with worsening from 1.50 creatinine to 2.10, and BUN normal. GFR still at 50. - Baseline is 1.5-2.2 looking back over last year. - Suspect that the Lasix played a role in the acute change. - Will consult Nephrology. (4) Abdominal Ascites - As evidenced on High resolution CT scan. - Etiology unknown - Normal LFT's and Bilirubin. - US complete of abdomen is ordered. - Pt. has had all vaccinations including Hep A and Hep B. - Potentially contributing to the dyspnea the pt. is experiencing from pushing on diaphragm? (5) Morbid obesity with BMI of 50.0-59.9, adult: Code(s): E66.01 - Morbid (severe) obesity due to excess calories; Z68.43 - Body mass index [BMI] 50.0-59.9, adult Status: Acute Assessment and Plan: - Carb consistent diet - Lifestyle and diet modifications as tolerated. (6) Chronic venous insufficiency: Code(s): I87.2 - Venous insufficiency (chronic) (peripheral) Status: Acute Assessment and Plan: - Apply Jayesh wraps for now Qshift, wound has not consulted yet. (7) GERD without esophagitis: Code(s): K21.9 - Gastro-esophageal reflux disease without esophagitis Status: Acute Assessment and Plan: - Continue PPI, Protonix 40 mg po daily. (8) Dyslipidemia: Code(s): E78.5 - Hyperlipidemia, unspecified Status: Acute Assessment and Plan: - Lipid panel checked this AM. Total Cholesterol is 91, Triglycerides are 102, HDL is 23 and LDL is 48. - Continue heart healthy diet. (9) Essential (primary) hypertension: Code(s): I10 - Essential (primary) hypertension Status: Acute Assessment and Plan: - Continue minoxidil (10) Peripheral polyneuropathy: Code(s): G62.9 - Polyneuropathy, unspecified Status: Acute Assessment and Plan: - Continue gabapentin (11) AMELIA (obstructive sleep apnea): Code(s): G47.33 - Obstructive sleep apnea (adult) (pediatric) Status: Acute Assessment and Plan: - Continue BiPAP at nighttime. Time Spent With Patient Time with patient: 25 - 35 minutes Subjective Date/time seen: 06/04/21 0750 This pt. was examined at the bedside in interval assessment. He appears more dyspneic today and review of the records from overnight show that the patient was hypoxic this AM at 80% this AM at 0845. 3L was placed on him at that time. He was noted to be on RA when I was in the room. Pt. also spiked a temperature last evening of 100.1. UA, Covid swab, Flu swab, CBC, CMP are ordered. In addition, a CTA PE protocol was ordered also due to his tachypnea and increased dyspnea this morning. Yesterday the pt. had a high resolution CT also of the lungs and it showed ascites in the abdomen. Etiology of his ascites is unclear as he has no known liver disease. US of abdomen complete is ordered at this time. It is possible that the patient is having increased dyspnea from ascites fluid in the abdomen. Pt. endorses feeling chilled at times and hot at times, having kicked his covers off. In addition, he has continued to compla
[2021-06-04 09:29] LABS: Anion Gap 8 mmol/L (8-16); Blood Urea Nitrogen 20 mg/dL (9-20); Calcium 8.5 mg/dL (8.4-10.2); Carbon Dioxide 32 mmol/L (22-30); Chloride 101 mmol/L (98-107); Estimated CRCL calculation 50 ml/min; Estimated Glomerular Filt Rate 31; Glucose 137 mg/dL (65-110); Potassium 3.9 mmol/L (3.4-5.0); Sodium 141 mmol/L (137-145)
--- NOTE | 2021-06-04 09:54 | PM.PNCARD ---
Progress Note: A&P Assessment and Plan (1) Respiratory failure with hypoxia: Qualifiers: Chronicity: acute Qualified Code(s): J96.01 - Acute respiratory failure with hypoxia Code(s): J96.91 - Respiratory failure, unspecified with hypoxia Status: Acute Assessment and Plan: Concern concerning development of leukocytosis, fever and worsening respiratory status with hypoxia requiring O2 supplementation for underlying infectious process although not appreciated on CT noncontrast 06/03/2021. CT PE protocol ordered although renal failure may preclude. Tenuous respiratory status. More aggressive diuresis complicated by significant rise in creatinine but does not appear to be pre renal based on laboratory studies this morning. -I am concerned patient is sicker than he looks. May be best served changing to heparin infusion if acute thromboembolic process identified for 48 hours. (2) Acute on chronic heart failure with preserved ejection fraction: Code(s): I50.33 - Acute on chronic diastolic (congestive) heart failure Status: Acute Assessment and Plan: Evidence of right and left heart failure with preserved systolic function. Troponin negative. Echo reveals severe RV enlargement and hypokinesis with moderate pulmonary hypertension. Consider thromboembolic disease, lower extremity DVT negative. If pulmonary embolism identified or suspected continue systemic anticoagulation with alteration as appropriate DVT/PE dosing. -Given acute on chronic renal failure will reduce Lasix back to 40 mg IV b.i.d.. Monitor renal function very closely. Input and output do not appear to be accurately recorded making volume status assessments very difficult. However, as recorded urine output remains inadequate. -Less than 2 g daily sodium intake restriction. Accurate input and output, daily weight. CHF counseling. Patient admits symptoms, weight gain progressive over 2 months and not due to acute or abrupt onset. (3) New onset atrial fibrillation: Code(s): I48.91 - Unspecified atrial fibrillation Status: Acute Assessment and Plan: New onset atrial fibrillation, appears paroxysmal on telemetry along with possible intermittent junctional escape rhythm. Sinus rhythm not readily observed. Heart rate reasonably controlled without AV orquidea blocking agents. As such, I would be cautious with AV orquidea blocking agents given underlying bundle-branch block, intermittent junctional rhythm, and fairly controlled heart rate in atrial fibrillation suggestive of significant underlying conduction system disease. -CHADS2 Vasc score 4. Eliquis 5 mg b.i.d.. -Heart rate control without AV orquidea blocking agents. -Continue telemetry. -12 lead EKG today. (4) Acute kidney injury superimposed on chronic kidney disease: Code(s): N17.9 - Acute kidney failure, unspecified; N18.9 - Chronic kidney disease, unspecified Status: Acute Assessment and Plan: Creatinine has increased significantly from 1.5-2.1 although without and accordance increase in BUN or suggestive of intrinsic injury as opposed to pre renal which is rather curious. Consider Nephrology consultation as well given patient's complicated pathophysiology in this regard. He remains on IV antibiotics, leukocytosis fever concerning for infectious process. Lasix adjusted. (5) Pulmonary hypertension: Code(s): I27.20 - Pulmonary hypertension, unspecified Status: Acute Assessment and Plan: Consistent with cor pulmonale. Moderate severity RVSP 51 mm Hg similar to prior echo June 2020. RV enlargement hypokinesis also similar. Lower extremity Dopplers negative for DVT. Given renal failure CT PE protocol may not be able to be performed. Ventilation perfusion scan alternative and would be more appropriate to assess for chronic thromboembolic process. (6) Essential (primary) hypertension: Code(s): I10 - Essential (primary) hyp
--- NOTE | 2021-06-04 09:55 | ECG_ITS ---
Measurements Intervals [place] Rate: 84 P: 112 TX: 227 QRS: 253 QRSD: 167 T: 100 QT: 435 QTc: 515 Interpretive Statements PROBABLE SINUS RHYTHM WITH FIRST DEGREE AV BLOCK WITH FREQUENT SUPRAVENTRICULAR PREMATURE COMPLEXES RIGHT ATRIAL ENLARGEMENT [0.3mV P WAVE] RIGHT AXIS DEVIATION [QRS AXIS > 100] RIGHT BUNDLE BRANCH BLOCK [120+ ms QRS DURATION, UPRIGHT V1, 40+ ms S IN I/aVL/V4/V5/V6] ABNORMAL ECG COMPARED TO ECG 06/02/2021 15:19:50 SINUS RHYTHM NOW PRESENT FIRST DEGREE AV BLOCK NOW PRESENT Electronically Signed On 06-05-2021 13:51:49 AUTOMOTIVE CUSTOMER EXPERIENCE ADVISOR by Chon Allen M.D.
[2021-06-04] MEDS: ASPIRIN 81 MG ENTERIC TABLET PO (10:15)
[2021-06-04] MEDS: GABAPENTIN 300 MG CAPSULE PO ×4 (10:15→20:22)
[2021-06-04] MEDS: FLUTICASONE PROPIONATE 0.05% NA SPR 16 GM BTL (*BKC) 1 SPRAY NASAL (10:16)
[2021-06-04] MEDS: LORATADINE 10 MG TABLET PO (10:16)
[2021-06-04] MEDS: APIXABAN 5 MG TABLET PO ×2 (10:16→20:28)
[2021-06-04] MEDS: PANTOPRAZOLE 40 MG TABLET PO (10:16)
[2021-06-04] MEDS: minoxidiL 10 MG TABLET PO (10:17)
[2021-06-04] MEDS: TOLNAFTATE 1% POWDER 45 GM BTL 1 APPLIC TOPICAL (10:19)
[2021-06-04] MEDS: ACETAMINOPHEN 325 MG TABLET PO (10:21)
[2021-06-04 10:43] LABS: Lactic Acid Reflex 2.2 mmol/L (0.7-2.1)
[2021-06-04 10:50] LABS: Lactate Dehydrogenase 334 U/L (313-618)
[2021-06-04 10:53] LABS: SARS-CoV-2 RNA PCR Negative
[2021-06-04 11:11] LABS: Procalcitonin 0.5 ng/mL
--- NOTE | 2021-06-04 11:16 | P.CONNP_ITS ---
Assessment and Plan Assessment and plan (1) JENA (acute kidney injury): Code(s): N17.9 - Acute kidney failure, unspecified Status: Acute Assessment and Plan: * etiology not clear * diuretic therapy could be responsible... * however, his rise in WBC in association with fever overnight is concerning for possible infection related issue * furthermore, has difficult to control HTN at baseline -- current BP readings would be relative hypotension for him... * he does have a history of JENA/ARF ~ 1 year ago that required temporary hemodialysis (JENA thought to be due to AIN) * further imaging testing ordered - follow-up on these results * consider checking renal ultrasound * urine electrolytes suggest prerena azotemia despite evidence of volume overload * likely telephone services sales representative of his cardiac issues * however, cannot discount an element of intravascular volume depletion in spite of known fluid retention * given events since earlier today, he remains at risk for FLIGHT DISPATCHER/dialysis... * follow trend of repeat labs and UOP (2) Stage 3a chronic kidney disease: Code(s): N18.31 - Chronic kidney disease, stage 3a Status: Chronic Assessment and Plan: * baseline creatinine runs ~ 1.4 - 1.7mg/dl in the last few years * due to hypertension and chronic pre renal azotemia due to his poorly functioning heart * may be an element of disease progression due to necessity of diuretic titration/escalation to treat his edema (3) Acute on chronic heart failure: Code(s): I50.9 - Heart failure, unspecified Status: Acute Assessment and Plan: * as noted by fluid retention, weight gain, and shortness of breath * on IV diuretic therapy * Cardiology following * repeat Echo results noted (4) Respiratory failure with hypoxia: Qualifiers: Chronicity: acute Qualified Code(s): J96.01 - Acute respiratory failure with hypoxia Code(s): J96.91 - Respiratory failure, unspecified with hypoxia Status: Acute Assessment and Plan: * significant decline since admission and earlier this AM * multiple issues could be responsible - worsening CHF versus worsening renal dysfunction versus infection/sepsis versus PE... * imaging noted and further imaging ordered * using BiPAP PRN * follow respiratory status closely (5) New onset atrial fibrillation: Code(s): I48.91 - Unspecified atrial fibrillation Status: Acute Assessment and Plan: * new finding * partly to blame for decline in status(?) * rate control strategy (6) Hypertension: Code(s): I10 - Essential (primary) hypertension Status: Chronic Assessment and Plan: * running a bit lower than baseline * follow trend * may need to consider backing off on BP meds to increase renal perfusion Will continue to follow. History of Present Illness Reason for Consult Consult date: 06/04/21 Reason for consult: acute renal failure (on chronic kidney disease) Chief Complaint Chief complaint: CHF exacerbation History of Present Illness Narrative: The patient is a very pleasant 71-year-old male with an extensive past medical history as outlined below who presented to [facility] Emergency room with complaints of shortness of breath in association with increasing weight gain, lower extremity edema, and abdominal distension. The patient was recently seen by his board design engineer for these symptoms and he apparently had gained about 20 lb of fluid that he did not report and till that office visit. His medications were adj
--- NOTE | 2021-06-04 11:16 | PM.CNNEP ---
Assessment and Plan Assessment and plan (1) JENA (acute kidney injury): Code(s): N17.9 - Acute kidney failure, unspecified Status: Acute Assessment and Plan: etiology not clear diuretic therapy could be responsible... however, his rise in WBC in association with fever overnight is concerning for possible infection related issue furthermore, has difficult to control HTN at baseline -- current BP readings would be relative hypotension for him... he does have a history of JENA/ARF ~ 1 year ago that required temporary hemodialysis (JENA thought to be due to AIN) further imaging testing ordered - follow-up on these results consider checking renal ultrasound urine electrolytes suggest prerena azotemia despite evidence of volume overload likely underwriting account representative of his cardiac issues however, cannot discount an element of intravascular volume depletion in spite of known fluid retention given events since earlier today, he remains at risk for COMMERCIAL CLEANER/dialysis... follow trend of repeat labs and UOP (2) Stage 3a chronic kidney disease: Code(s): N18.31 - Chronic kidney disease, stage 3a Status: Chronic Assessment and Plan: baseline creatinine runs ~ 1.4 - 1.7mg/dl in the last few years due to hypertension and chronic pre renal azotemia due to his poorly functioning heart may be an element of disease progression due to necessity of diuretic titration/escalation to treat his edema (3) Acute on chronic heart failure: Code(s): I50.9 - Heart failure, unspecified Status: Acute Assessment and Plan: as noted by fluid retention, weight gain, and shortness of breath on IV diuretic therapy Cardiology following repeat Echo results noted (4) Respiratory failure with hypoxia: Qualifiers: Chronicity: acute Qualified Code(s): J96.01 - Acute respiratory failure with hypoxia Code(s): J96.91 - Respiratory failure, unspecified with hypoxia Status: Acute Assessment and Plan: significant decline since admission and earlier this AM multiple issues could be responsible - worsening CHF versus worsening renal dysfunction versus infection/sepsis versus PE... imaging noted and further imaging ordered using BiPAP PRN follow respiratory status closely (5) New onset atrial fibrillation: Code(s): I48.91 - Unspecified atrial fibrillation Status: Acute Assessment and Plan: new finding partly to blame for decline in status(?) rate control strategy (6) Hypertension: Code(s): I10 - Essential (primary) hypertension Status: Chronic Assessment and Plan: running a bit lower than baseline follow trend may need to consider backing off on BP meds to increase renal perfusion Will continue to follow. History of Present Illness Reason for Consult Consult date: 06/04/21 Reason for consult: acute renal failure (on chronic kidney disease) Chief Complaint Chief complaint: CHF exacerbation History of Present Illness Narrative: The patient is a very pleasant 71-year-old male with an extensive past medical history as outlined below who presented to [facility] Emergency room with complaints of shortness of breath in association with increasing weight gain, lower extremity edema, and abdominal distension. The patient was recently seen by his nutrition associate for these symptoms and he apparently had gained about 20 lb of fluid that he did not report and till that office visit. His medications were adjusted in effort to facilitate more aggressive diuresis and there was some discussion regarding the possibility of a direct admission to the hospital for more directed IV diuresis if he failed to respond to conservative therapy. Unfortunately, his symptoms continued to progress until eventually presented to the ER as noted above. Workup and evaluation in the emergency room demonstrated the patient to be hemodynamically stable
[2021-06-04 12:39] LABS: Base Excess ABG 2.4 mEq/l (+/-2.0); Fractional Inspired Oxygen 32 %; HCO3 ABG 28.8 mEq/l (22.0-26.0); Oxyhemoglobin 94.4 % THb (90.0-100.0); PCO2 ABG 52.5 mmHg (35.0-45.0); PO2 ABG 85.7 mmHg (80.0-100.0); PO2 FiO2 Ratio Arterial Blood 2.68 %; pH ABG 7.357 (7.350-7.450)
[2021-06-04 12:40] LABS: Modified Allen's Test Pass; Site Drawn LEFT RADIAL
[2021-06-04 12:41] LABS: Device NASAL CANNULA
[2021-06-04 13:31] LABS: Reflex Lactic Acid Yes or No Add Lactic
[2021-06-04] MEDS: FUROSEMIDE INJ 40 MG/4 ML VIAL IV PUSH (14:52)
[2021-06-04] MEDS: DOXYCYCLINE 100 MG/NS 100 ML 100 MG/100 ML BAG IVPB (18:20)
[2021-06-04 18:36] LABS: Add Urine Microscopic? YES; Appearance Urine Cloudy (Clear); Bacteria Urine Trace /hpf; Bilirubin Urine Negative (Negative); Blood Urine Negative (Negative); Color Urine Amber (Yellow); Glucose Urine UA Negative (Negative); Hyaline Casts Urine 15-19 /lpf; Ketones Urine Negative (Negative); Leukocyte Esterase Ur 2+ LEU/UL (Negative); Mucus Urine Rare /lpf; Nitrate Urine Negative (Negative); Protein Urine 1+ mg/dL (Negative); Specific Grav Ur 1.028 (1.001-1.035); Squamous Epithelial Cell Urine Occasional /hpf (Few); WBC Urine 51-75 /hpf
[2021-06-04 18:42] LABS: Creatinine Urine 263.4 mg/dL; Total Protein Urine Random 43 mg/dL; Ur Ttl Prot Creatinine Ratio 0.16 mg/mg (0-0.20)
[2021-06-04 18:45] LABS: Sodium Urine Random 19 meq/L
[2021-06-04 19:00] LABS: Influenza Control Positive
[2021-06-04 19:01] LABS: Eosinophil Urine None Seen % (None Seen)
[2021-06-05] VITALS (12 sets, daily range): BP systolic 106–151; BP diastolic 66–81; PULSE 100–124; RESP 16–21; TEMP 36.2–36.9; O2SAT 93–97
--- NOTE | 2021-06-05 05:18 | PC.NURSE ---
Patient has not urinated for entire shift. Bladder scan showed 295ml in bladder. Patient is refusing catheter at this time. Called Dr. Hein and informed and she gave no new orders at this time.
[2021-06-05] MEDS: LEVOTHYROXINE SODIUM 25 MCG TABLET PO (05:23)
[2021-06-05 05:24] LABS: Basophils Absolute Auto 0.1 K/mm3 (0.0-0.1); Eosinophils Absolute Auto 0.1 K/mm3 (0-0.3); Eosinophils Percent Auto 1.6 % (0-4.4); Hematocrit 38.8 % (42.0-52.0); Hemoglobin 10.9 g/dL (14.0-18.0); Immature Granulocyte Absolute 0.07 K/mm3 (0.00-0.031); Immature Granulocyte Percent A 0.8 % (0-0.5); Lymphocytes Percent Auto 13.3 % (18.3-44.2); Mean Corpuscular HGB Conc 28.1 g/dl (32-36); Mean Corpuscular Hemoglobin 26.2 pg (26-34); Mean Corpuscular Volume 93.3 fl (80-100); Mean Platelet Volume 10.5 fl (7.4-10.4); Monocytes Absolute Auto 1.1 K/mm3 (0.1-0.6); Monocytes Percent Auto 12.4 % (2.6-8.5); Neutrophils Absolute Auto 6.4 K/mm3 (1.3-6.7); Neutrophils Percent Auto 70.9 % (45.5-73.1); Platelet Count Result 313 k/mm3 (150-375); Red Blood Count 4.16 M/mm3 (4.6-6.20); Red Cell Distribution Width 16.3 % (11.5-14.5)
[2021-06-05 05:34] LABS: Alanine Aminotransferase 7 U/L (4-50); Albumin Level 3.6 g/dL (3.5-5.1); Alkaline Phosphatase 53 U/L (38-126); Anion Gap 6 mmol/L (8-16); Aspartate Amino Transferase 21 U/L (17-59); Bilirubin,Total 1.2 mg/dL (0.2-1.3); Blood Urea Nitrogen 28 mg/dL (9-20); Calcium 8.3 mg/dL (8.4-10.2); Carbon Dioxide 30 mmol/L (22-30); Chloride 100 mmol/L (98-107); Creatine Kinase 36 U/L (55-170); Estimated CRCL calculation 48 ml/min; Estimated Glomerular Filt Rate 30; Glucose 102 mg/dL (65-110); Magnesium 2.2 mg/dL (1.6-2.3); Sodium 136 mmol/L (137-145)
[2021-06-05] MEDS: APIXABAN 5 MG TABLET PO (08:10)
[2021-06-05] MEDS: GABAPENTIN 300 MG CAPSULE PO ×4 (08:10→20:35)
[2021-06-05] MEDS: PANTOPRAZOLE 40 MG TABLET PO (08:10)
[2021-06-05] MEDS: LORATADINE 10 MG TABLET PO (08:10)
[2021-06-05] MEDS: ASPIRIN 81 MG ENTERIC TABLET PO (08:10)
[2021-06-05] MEDS: FUROSEMIDE INJ 40 MG/4 ML VIAL IV PUSH ×2 (08:10→17:22)
[2021-06-05] MEDS: TOLNAFTATE 1% POWDER 45 GM BTL 1 APPLIC TOPICAL ×3 (08:11→20:49)
[2021-06-05] MEDS: FLUTICASONE PROPIONATE 0.05% NA SPR 16 GM BTL (*BKC) 1 SPRAY NASAL (08:11)
--- NOTE | 2021-06-05 08:57 | PM.PNCARD ---
Progress Note: A&P Assessment and Plan (1) Respiratory failure with hypoxia: Qualifiers: Chronicity: acute Qualified Code(s): J96.01 - Acute respiratory failure with hypoxia <SAGAR Whitney - Last Filed: 06/05/21 14:54> Code(s): J96.91 - Respiratory failure, unspecified with hypoxia <SAGAR Whitney - Last Filed: 06/05/21 14:54> Status: Acute <SAGAR Whitney - Last Filed: 06/05/21 14:54> Assessment and Plan: Concerning development of leukocytosis, fever and worsening respiratory status with hypoxia requiring O2 supplementation. Concern for underlying infectious process although not appreciated on CT noncontrast 06/03/2021. CT chest showed no PE, stable moderate sized right and small left pleural effusions. WBC down today, 9.0. no further fevers. Stable on 2L O2. <SAGAR Whitney - Last Filed: 06/05/21 14:54> (2) Acute on chronic heart failure with preserved ejection fraction: Code(s): I50.33 - Acute on chronic diastolic (congestive) heart failure <SAGAR Whitney - Last Filed: 06/05/21 14:54> Status: Acute <SAGAR Whitney - Last Filed: 06/05/21 14:54> Assessment and Plan: Evidence of right and left heart failure with preserved systolic function. Troponin negative. Echo reveals severe RV enlargement and hypokinesis with moderate pulmonary hypertension. Consider thromboembolic disease, lower extremity DVT negative. If pulmonary embolism identified or suspected continue systemic anticoagulation with alteration as appropriate DVT/PE dosing. Continue furosemide 40 mg IV b.i.d.. Monitor renal function very closely. Less than 2 g daily sodium intake restriction. Accurate input and output Daily weight. CHF counseling <SAGAR Whitney - Last Filed: 06/05/21 14:54> (3) New onset atrial fibrillation: Code(s): I48.91 - Unspecified atrial fibrillation <SAGAR Whitney - Last Filed: 06/05/21 14:54> Status: Acute <SAGAR Whitney - Last Filed: 06/05/21 14:54> Assessment and Plan: New onset atrial fibrillation, appears paroxysmal on telemetry along with possible intermittent junctional escape rhythm. Sinus rhythm not readily observed. Heart rate reasonably controlled without AV orquidea blocking agents. As such, I would be cautious with AV orquidea blocking agents given underlying bundle-branch block, intermittent junctional rhythm, and fairly controlled heart rate in atrial fibrillation suggestive of significant underlying conduction system disease. -CHADS2 Vasc score 4. Eliquis 5 mg b.i.d.. -Heart rate this morning in the 120's 130's. He is asmptomatic. -Will cautiously start low dose metoprolol tartrate 12.5 mg b.i.d. -Continue telemetry. <SAGAR Whitney - Last Filed: 06/05/21 14:54> (4) Acute kidney injury superimposed on chronic kidney disease: Code(s): N17.9 - Acute kidney failure, unspecified; N18.9 - Chronic kidney disease, unspecified <SAGAR Whitney - Last Filed: 06/05/21 14:54> Status: Acute <SAGAR Whitney - Last Filed: 06/05/21 14:54> Assessment and Plan: Creatinine has increased significantly from 1.5-2.2, etiology unclear, probably multifactorial - leukocytosis and possible underlying infection, diuresis. Nephrology has been consulted, appreciate their input and recs. <SAGAR Whitney - Last Filed: 06/05/21 14:54> (5) Pulmonary hypertension: Code(s): I27.20 - Pulmonary hypertension, unspecified <SAGAR Whitney - Last Filed: 06/05/21 14:54> Status: Acute <SAGAR Whitney - Last Filed: 06/05/21 14:54> Assessment and Plan: Consistent with cor pulmonale. Moderate severity RVSP 51 mm Hg similar to prior echo June 2020. RV enlargement hypokinesis also similar. Lower extremity Dopplers negative for DVT. Given renal failure
[2021-06-05] MEDS: LACTIC ACID 12% LOTION 225 BTL 1 APPLIC TOPICAL (11:14)
[2021-06-05] MEDS: minoxidiL 10 MG TABLET PO (11:15)
--- NOTE | 2021-06-05 12:43 | P.PNNP_ITS ---
Progress Note: A&P Assessment and Plan (1) JENA (acute kidney injury): Code(s): N17.9 - Acute kidney failure, unspecified Status: Acute Assessment and Plan: * etiology not clear * diuretic therapy could be responsible... * however, his previous leukocytosis in association with fever is concerning for possible infection related issue * furthermore, has difficult to control HTN at baseline -- current BP readings w ould be relative hypotension for him... * agree with backing off on minoxidil to let his systolic BP rise a bit * if he has a higher BP, consider more aggressive diuresis * he does have a history of JENA/ARF ~ 1 year ago that required temporary hemodialysis (JENA thought to be due to AIN) * urine electrolytes suggest prerena azotemia despite evidence of volume overload * likely artist representative of his cardiac issues * however, cannot discount an element of intravascular volume depletion in spite of known fluid retention * check renal ultrasound * concerning that he received contrast (CTA chest) yesterday -- he might be developing contrast nephropathy... * he remains at risk for CARDIAC EXERCISE PHYSIOLOGIST/dialysis... * follow trend of repeat labs and UOP (2) Stage 3a chronic kidney disease: Code(s): N18.31 - Chronic kidney disease, stage 3a Status: Chronic Assessment and Plan: * baseline creatinine runs ~ 1.4 - 1.7mg/dl in the last few years * due to hypertension and chronic pre renal azotemia due to his poorly functioning heart * may be an element of disease progression due to necessity of diuretic titration/escalation to treat his edema (3) Acute on chronic heart failure: Code(s): I50.9 - Heart failure, unspecified Status: Acute Assessment and Plan: * as noted by fluid retention, weight gain, and shortness of breath * on IV diuretic therapy * Cardiology following * repeat Echo results noted (4) Respiratory failure with hypoxia: Qualifiers: Chronicity: acute Qualified Code(s): J96.01 - Acute respiratory failure with hypoxia Code(s): J96.91 - Respiratory failure, unspecified with hypoxia Status: Acute Assessment and Plan: * multiple issues could be responsible - worsening CHF versus worsening renal dysfunction versus infection/sepsis versus PE... * CTA of chest noted - no PE but pleural effusions present * using BiPAP PRN * follow respiratory status closely (5) New onset atrial fibrillation: Code(s): I48.91 - Unspecified atrial fibrillation Status: Acute Assessment and Plan: * new finding * partly to blame for decline in status(?) * rate control strategy (while trying to avoid hypotension) * on anticoagulation (6) Hypertension: Code(s): I10 - Essential (primary) hypertension Status: Chronic Assessment and Plan: * running a bit lower than baseline * follow trend * attempting to slowly back off on BP meds to increase renal perfusion Will continue to follow. Subjective Date/time seen: 06/05/21 12:43 Respiratory status seems better today although he still reports shortness of breath with conversation; creatinine elevated but rate of rise diminished but his urine output has declined in the last 24 hours; temperature curve ans well WBC is better also. Exam Narrative: General: WD/WN male in NAD Heart: normal S1 and S2; no rub Lungs: decreased at base with some bibasilar crackles Abdomen: soft, nontender, nondistended, positive bowel sounds Extremities: no cyanosis or clubbing; 2+edema S
--- NOTE | 2021-06-05 12:43 | PM.PNNEP ---
Progress Note: A&P Assessment and Plan (1) JENA (acute kidney injury): Code(s): N17.9 - Acute kidney failure, unspecified Status: Acute Assessment and Plan: etiology not clear diuretic therapy could be responsible... however, his previous leukocytosis in association with fever is concerning for possible infection related issue furthermore, has difficult to control HTN at baseline -- current BP readings would be relative hypotension for him... agree with backing off on minoxidil to let his systolic BP rise a bit if he has a higher BP, consider more aggressive diuresis he does have a history of JENA/ARF ~ 1 year ago that required temporary hemodialysis (JENA thought to be due to AIN) urine electrolytes suggest prerena azotemia despite evidence of volume overload likely national account representative of his cardiac issues however, cannot discount an element of intravascular volume depletion in spite of known fluid retention check renal ultrasound concerning that he received contrast (CTA chest) yesterday -- he might be developing contrast nephropathy... he remains at risk for LONG TERM CARE SOCIAL WORKER/dialysis... follow trend of repeat labs and UOP (2) Stage 3a chronic kidney disease: Code(s): N18.31 - Chronic kidney disease, stage 3a Status: Chronic Assessment and Plan: baseline creatinine runs ~ 1.4 - 1.7mg/dl in the last few years due to hypertension and chronic pre renal azotemia due to his poorly functioning heart may be an element of disease progression due to necessity of diuretic titration/escalation to treat his edema (3) Acute on chronic heart failure: Code(s): I50.9 - Heart failure, unspecified Status: Acute Assessment and Plan: as noted by fluid retention, weight gain, and shortness of breath on IV diuretic therapy Cardiology following repeat Echo results noted (4) Respiratory failure with hypoxia: Qualifiers: Chronicity: acute Qualified Code(s): J96.01 - Acute respiratory failure with hypoxia Code(s): J96.91 - Respiratory failure, unspecified with hypoxia Status: Acute Assessment and Plan: multiple issues could be responsible - worsening CHF versus worsening renal dysfunction versus infection/sepsis versus PE... CTA of chest noted - no PE but pleural effusions present using BiPAP PRN follow respiratory status closely (5) New onset atrial fibrillation: Code(s): I48.91 - Unspecified atrial fibrillation Status: Acute Assessment and Plan: new finding partly to blame for decline in status(?) rate control strategy (while trying to avoid hypotension) on anticoagulation (6) Hypertension: Code(s): I10 - Essential (primary) hypertension Status: Chronic Assessment and Plan: running a bit lower than baseline follow trend attempting to slowly back off on BP meds to increase renal perfusion Will continue to follow. Subjective Date/time seen: 06/05/21 12:43 Respiratory status seems better today although he still reports shortness of breath with conversation; creatinine elevated but rate of rise diminished but his urine output has declined in the last 24 hours; temperature curve ans well WBC is better also. Exam Narrative: General: WD/WN male in NAD Heart: normal S1 and S2; no rub Lungs: decreased at base with some bibasilar crackles Abdomen: soft, nontender, nondistended, positive bowel sounds Extremities: no cyanosis or clubbing; 2+edema Skin: chronic skin changes noted Objective Data Vital Signs Vital Signs: Vital Signs Temp Pulse Resp BP Pulse Ox 06/05/21 12:06 36.2 C L 119 H 18 129/76 95 06/05/21 08:55 93 06/05/21 08:21 36.5 C 123 H 16 127/81 94 06/05/21 08:00 100 16 93 06/05/21 04:00 36.6 C 114 H 20 106/70 97 06/05/21 00:00 36.9 C 119 H 21 H 118/80 94 06/04/21 21:28 78 17 96 06/04/21 20:00 37.1 C 107 H 20 123/56 L 94
--- NOTE | 2021-06-05 13:03 | PM.IMPN ---
Progress Note: A&P Additional Plan 71-year-old male with past medical history significant for obesity, pericardial window, hypothyroidism, congestive heart failure, chronic low back pain, chronic venous insufficiency, presented with worsening SOB, increased abdominal girth, B/L leg Swelling 1)Acute Hypoxic Resp Failure: likely 2/2 acute on chronic diastolic HF Has B/l Pleural effusion with leg swelling Also has liver cirrhosis with ascites Appreciate cardiology help c/w O2 support c/w Diuresis Strict I/o's Daily weight Keep K>4, mag>2 Will plan for therapeutic right sided thoracentesis by IR c/w Azithromycin+Doxycycline for now 2)JENA on CKD Stage 3A: Appreciate renal help management per renal Avoid nephrotoxins Recheck BMP in AM Add flomax for urinary retention 3)New Onset of Afibb: tachycardic Will increase dsoe of metoprolol to 25 mg BID Holding eliquis tonight for thoracentesis in AM 4)Chronic venous insufficiency: Apply Jayesh wraps for now Qshift 5)Fever: Resolved Leucocytosis resolved Will monitor 6)Code:Full, will talk to patient about goals of care 7)DVT ppx: On LEiquis, holding tonight as mentioned above 8)Dispo:pending improvement, 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 Time Spent With Patient Time with patient: Greater than 35 minutes Subjective Date/time seen: 06/05/21 13:03 Interval history: c/o SOB Abdominal fullness/bloating Leg swelling Review of Systems Review of Systems: All systems reviewed & are unremarkable except as noted in HPI and below Constitutional: Constitutional: Reports fatigue and Reports weakness Eyes: Eyes: Reports no additional eye complaints ENT: Reports system reviewed and no additional complaints, except as documented Cardiovascular: Cardiovascular: Reports leg edema Respiratory: Respiratory: Reports dyspnea Gastrointestinal: Gastrointestinal: Reports bloating Comments: distended abdomen Neurologic: Reports system reviewed and no additional complaints, except as documented Exam Const: General: no acute distress HENMT: Mouth: Yes moist mucous membranes Eyes: Pupils: Equal, round and reactive pupils present Neck: Neck: supple Resp: Other: B/L coarse breath sounds, diminshed breath sounds Cardio: Rate: regular rate Rhythm: regular rhythm GI: Inspection: distended Auscultation: normal bowel sounds Skin: General skin exam: normal color Neuro: Cognition (Neuro): normal cognition Speech: normal speech Objective Data Vital Signs Vital Signs: Vital Signs - 24 hr 06/04/21 16:00 06/04/21 20:00 06/04/21 21:28 Temperature 98.9 F 98.7 F Pulse Rate 77 107 H 78 Respiratory Rate 18 20 17 Blood Pressure 120/55 L 123/56 L Pulse Oximetry 97 94 96 06/05/21 00:00 06/05/21 04:00 06/05/21 08:00 Temperature 98.5 F 97.8 F Pulse Rate 119 H 114 H 100 Respiratory Rate 21 H 20 16 Blood Pressure 118/80 106/70 Pulse Oximetry 94 97 93 06/05/21 08:21 06/05/21 08:55 06/05/21 12:06 Temperature 97.7 F 97.2 F L Pulse Rate 123 H 119 H Respiratory Rate 16 18 Blood Pressure 127/81 129/76 Pulse Oximetry 94 93 95 Intake/Output Intake/Output: Intake & Output 06/02/21 06/03/21 06/04/21 06/05/21 23:59 23:59 23:59 23:59 Intake Total 350 1730 900 240 Output Total 1800 400 300 Balance 350 -70 500 -60 Meds/Results Medications: Active Medications Generic Name Dose Route Start Last Admin Trade Name Freq PRN Reason Stop Dose Admin Acetaminophen 325 mg 06/02/21 20:23 06/04/21 10:21 Acetaminophen 325 Mg Tablet PO 325 mg Q6H PRN Administration Pain Apixaban 5 mg 06/03/21 21:00 06/05/21 08:10 Apixaban 5 Mg Tablet PO 5 mg Q12HR ANGELA Administration Aspirin 81 mg 06/03/21 09:00 06/05/21 08:10 Aspirin 81 Mg Enteric Tablet PO 81 mg DAILY ANGELA Administration Fluticasone Propionate 1 spray 06/03/21 09:00 06/05/21 08:11 Fluticasone Propionate 0.05% Na Spr 16 Gm Btl (*Bkc) NASAL 1 spray DAILY ANGELA Admin
[2021-06-05] MEDS: DOXYCYCLINE 100 MG/NS 100 ML 100 MG/100 ML BAG IVPB (17:24)
[2021-06-05] MEDS: METOPROLOL TARTRATE 25 MG TABLET PO (20:35)
[2021-06-06] VITALS (17 sets, daily range): BP systolic 100–134; BP diastolic 59–70; PULSE 60–119; RESP 18–24; TEMP 36.7–36.9; O2SAT 92–97
[2021-06-06] MEDS: ASPIRIN 81 MG ENTERIC TABLET PO (09:30)
[2021-06-06] MEDS: FLUTICASONE PROPIONATE 0.05% NA SPR 16 GM BTL (*BKC) 1 SPRAY NASAL (09:30)
[2021-06-06] MEDS: FUROSEMIDE INJ 40 MG/4 ML VIAL IV PUSH (09:30)
[2021-06-06] MEDS: GABAPENTIN 300 MG CAPSULE PO ×4 (09:30→21:42)
[2021-06-06] MEDS: METOPROLOL TARTRATE 25 MG TABLET PO (09:31)
[2021-06-06] MEDS: LORATADINE 10 MG TABLET PO (09:31)
[2021-06-06] MEDS: PANTOPRAZOLE 40 MG TABLET PO (09:34)
[2021-06-06] MEDS: TAMSULOSIN HCL 0.4 MG CAPSULE PO (09:34)
[2021-06-06] MEDS: TOLNAFTATE 1% POWDER 45 GM BTL 1 APPLIC TOPICAL ×2 (09:35→21:44)
[2021-06-06] MEDS: LACTIC ACID 12% LOTION 225 BTL 1 APPLIC TOPICAL (09:41)
[2021-06-06] MEDS: minoxidiL 2.5 MG TABLET 5 MG PO (09:44)
--- NOTE | 2021-06-06 09:50 | P.PNNP_ITS ---
Progress Note: A&P Assessment and Plan (1) JENA (acute kidney injury): Code(s): N17.9 - Acute kidney failure, unspecified Status: Acute Assessment and Plan: * etiology not clear * diuretic therapy could be responsible... * however, his previous leukocytosis in association with fever is concerning for possible infection related issue * furthermore, has difficult to control HTN at baseline -- current BP readings w ould be relative hypotension for him... 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 * concerning that he received contrast (CTA chest) on 06/04/21 -- I worry about the possibility of contrast nephropathy... * follow trend of repeat labs and UOP (2) Stage 3a chronic kidney disease: Code(s): N18.31 - Chronic kidney disease, stage 3a Status: Chronic Assessment and Plan: * baseline creatinine runs ~ 1.4 - 1.7mg/dl in the last few years * due to hypertension and chronic pre renal azotemia due to his poorly functioning heart * may be an element of disease progression due to necessity of diuretic titration/escalation to treat his edema (3) Acute on chronic heart failure: Code(s): I50.9 - Heart failure, unspecified Status: Acute Assessment and Plan: * as noted by fluid retention, weight gain, and shortness of breath * on IV diuretic therapy * Cardiology following * repeat Echo results noted (4) Respiratory failure with hypoxia: Qualifiers: Chronicity: acute Qualified Code(s): J96.01 - Acute respiratory failure with hypoxia Code(s): J96.91 - Respiratory failure, unspecified with hypoxia Status: Acute Assessment and Plan: * multiple issues could be responsible - worsening CHF versus worsening renal dysfunction versus infection/sepsis versus PE... * CTA of chest noted - no PE but pleural effusions present * using BiPAP PRN * s/p thoracentesis (on 06/06/21) [facility] 925cc removed * follow respiratory status closely (5) New onset atrial fibrillation: Code(s): I48.91 - Unspecified atrial fibrillation Status: Acute Assessment and Plan: * new finding * partly to blame for decline in status(?) * rate control strategy (while trying to avoid hypotension) * on anticoagulation (6) Hypertension: Code(s): I10 - Essential (primary) hypertension Status: Chronic Assessment and Plan: * running a bit lower than baseline * follow trend * attempting to slowly back off on BP meds to increase renal perfusion Will continue to follow. Subjective Date/time seen: 06/06/21 09:50 Still with complaints of shortness of breath, LE edema, and abdominal fullness; more urine output noted in the last 24 hours but patient states that is incorrect as he has noted a decline in urine output; NPO for thoracentesis today; no acute distress voiced. Exam Narrative: General: WD/WN male in NAD Heart: normal S1 and S2; no rub Lungs: decreased at base with some bibasilar crackles Abdomen: soft, nontender, nondistended,
--- NOTE | 2021-06-06 09:50 | PM.PNNEP ---
Progress Note: A&P Assessment and Plan (1) JENA (acute kidney injury): Code(s): N17.9 - Acute kidney failure, unspecified Status: Acute Assessment and Plan: etiology not clear diuretic therapy could be responsible... however, his previous leukocytosis in association with fever is concerning for possible infection related issue furthermore, has difficult to control HTN at baseline -- current BP readings would be relative hypotension for him... 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 concerning that he received contrast (CTA chest) on 06/04/21 -- I worry about the possibility of contrast nephropathy... follow trend of repeat labs and UOP (2) Stage 3a chronic kidney disease: Code(s): N18.31 - Chronic kidney disease, stage 3a Status: Chronic Assessment and Plan: baseline creatinine runs ~ 1.4 - 1.7mg/dl in the last few years due to hypertension and chronic pre renal azotemia due to his poorly functioning heart may be an element of disease progression due to necessity of diuretic titration/escalation to treat his edema (3) Acute on chronic heart failure: Code(s): I50.9 - Heart failure, unspecified Status: Acute Assessment and Plan: as noted by fluid retention, weight gain, and shortness of breath on IV diuretic therapy Cardiology following repeat Echo results noted (4) Respiratory failure with hypoxia: Qualifiers: Chronicity: acute Qualified Code(s): J96.01 - Acute respiratory failure with hypoxia Code(s): J96.91 - Respiratory failure, unspecified with hypoxia Status: Acute Assessment and Plan: multiple issues could be responsible - worsening CHF versus worsening renal dysfunction versus infection/sepsis versus PE... CTA of chest noted - no PE but pleural effusions present using BiPAP PRN s/p thoracentesis (on 06/06/21) [facility] 925cc removed follow respiratory status closely (5) New onset atrial fibrillation: Code(s): I48.91 - Unspecified atrial fibrillation Status: Acute Assessment and Plan: new finding partly to blame for decline in status(?) rate control strategy (while trying to avoid hypotension) on anticoagulation (6) Hypertension: Code(s): I10 - Essential (primary) hypertension Status: Chronic Assessment and Plan: running a bit lower than baseline follow trend attempting to slowly back off on BP meds to increase renal perfusion Will continue to follow. Subjective Date/time seen: 06/06/21 09:50 Still with complaints of shortness of breath, LE edema, and abdominal fullness; more urine output noted in the last 24 hours but patient states that is incorrect as he has noted a decline in urine output; NPO for thoracentesis today; no acute distress voiced. Exam Narrative: General: WD/WN male in NAD Heart: normal S1 and S2; no rub Lungs: decreased at base with some bibasilar crackles Abdomen: soft, nontender, nondistended, positive bowel sounds Extremities: no cyanosis or clubbing; 2+edema Skin: chronic skin changes apparent Objective Data Vital Signs Vital Signs: Vital Signs Temp Pulse Resp BP Pulse Ox 06/06/21 09:31 65 06/06/21 08:26 93 06/06/21 04:00 112 H 06/06/21 03:53 36.7 C 114 H 20 100/65 92 06/06/21 00:00 119 H 06/05/21 23:47 36.9 C 107 H 20 118/66 95 06/05/21 20:35 118 H 06/05/21 20:00 36.7 C 122 H 20 151/69
[2021-06-06 10:18] LABS: Basophils Absolute Auto 0.1 K/mm3 (0.0-0.1); Basophils Percent Auto 0.8 % (0.2-1.2); Eosinophils Absolute Auto 0.1 K/mm3 (0-0.3); Eosinophils Percent Auto 1.4 % (0-4.4); Hematocrit 38.4 % (42.0-52.0); Hemoglobin 10.9 g/dL (14.0-18.0); Immature Granulocyte Absolute 0.04 K/mm3 (0.00-0.031); Immature Granulocyte Percent A 0.4 % (0-0.5); Lymphocytes Absolute Auto 1.07 K/mm3 (0.9-3.2); Lymphocytes Percent Auto 11.5 % (18.3-44.2); Mean Corpuscular HGB Conc 28.4 g/dl (32-36); Mean Corpuscular Volume 91.6 fl (80-100); Mean Platelet Volume 11.2 fl (7.4-10.4); Monocytes Absolute Auto 1.1 K/mm3 (0.1-0.6); Monocytes Percent Auto 12.2 % (2.6-8.5); Neutrophils Absolute Auto 6.9 K/mm3 (1.3-6.7); Neutrophils Percent Auto 73.7 % (45.5-73.1); Platelet Count Result 313 k/mm3 (150-375); Red Blood Count 4.19 M/mm3 (4.6-6.20); Red Cell Distribution Width 16.1 % (11.5-14.5); White Blood Count 9.3 K/mm3 (4.5-10.0)
[2021-06-06 10:34] LABS: Alanine Aminotransferase 6 U/L (4-50); Albumin Level 3.7 g/dL (3.5-5.1); Alkaline Phosphatase 49 U/L (38-126); Anion Gap 10 mmol/L (8-16); Aspartate Amino Transferase 24 U/L (17-59); Bilirubin,Total 1.4 mg/dL (0.2-1.3); Blood Urea Nitrogen 36 mg/dL (9-20); Calcium 8.4 mg/dL (8.4-10.2); Carbon Dioxide 29 mmol/L (22-30); Chloride 99 mmol/L (98-107); Estimated CRCL calculation 44 ml/min; Estimated Glomerular Filt Rate 27; Glucose 98 mg/dL (65-110); Magnesium 2.3 mg/dL (1.6-2.3); Potassium 4.4 mmol/L (3.4-5.0); Sodium 138 mmol/L (137-145)
[2021-06-06 10:39] LABS: INR 1.6; Prothrombin Time 18.6 Seconds (11.1-14.7)
[2021-06-06] MEDS: ACETAMINOPHEN 325 MG TABLET PO (10:41)
[2021-06-06 10:56] LABS: Anisocytosis 1+ (NORMAL); Ovalocytes 1+ (NORMAL); Platelet Estimate Adequate (Adequate)
--- NOTE | 2021-06-06 12:31 | PCOTNOTE ---
Attempted to see patient this PM, patient unavailable - having thoracentesis. Will continue per plan of care tomorrow, 06/07/21.
[2021-06-06 12:42] LABS: pH Pleural Fluid 7.473 (7.210-7.500)
[2021-06-06 13:40] LABS: Appearance Pleural Fluid Clear (Clear); Color Pleural Fluid Yellow (Colorless); Nucleated Cell Pleural Fluid 254 /uL (0-1000); Pleural fluid source Pleural fluid; RBC Pleural Fluid 339 /uL (0-0)
[2021-06-06 13:46] LABS: Lymphocytes Pleural Fluid 65 %; Macrophages Pleural Fluid 4 %; Mesothelial Cells Pleural Flui 17 %; Neutrophils Pleural Fluid 14 % (0-25)
--- NOTE | 2021-06-06 14:33 | PM.PNCARD ---
Progress Note: A&P Assessment and Plan (1) Respiratory failure with hypoxia: Qualifiers: Chronicity: acute Qualified Code(s): J96.01 - Acute respiratory failure with hypoxia <SAGAR Whitney - Last Filed: 06/06/21 15:07> Code(s): J96.91 - Respiratory failure, unspecified with hypoxia <SAGAR Whitney - Last Filed: 06/06/21 15:07> Status: Acute <SAGAR Whitney - Last Filed: 06/06/21 15:07> Assessment and Plan: Concerning development of leukocytosis, fever and worsening respiratory status with hypoxia requiring O2 supplementation. Concern for underlying infectious process although not appreciated on CT noncontrast 06/03/2021. CT chest showed no PE, stable moderate sized right and small left pleural effusions. WBC stable today, 9.3. Stable on 2L O2. Remains on IV abx. <SAGAR Whitney - Last Filed: 06/06/21 15:07> (2) Acute on chronic heart failure with preserved ejection fraction: Code(s): I50.33 - Acute on chronic diastolic (congestive) heart failure <SAGAR Whitney - Last Filed: 06/06/21 15:07> Status: Acute <SAGAR Whitney - Last Filed: 06/06/21 15:07> Assessment and Plan: Evidence of right and left heart failure with preserved systolic function. Troponin negative. Echo reveals severe RV enlargement and hypokinesis with moderate pulmonary hypertension. Consider thromboembolic disease, lower extremity DVT negative. If pulmonary embolism identified or suspected continue systemic anticoagulation with alteration as appropriate DVT/PE dosing. Continue furosemide 40 mg IV b.i.d.. Monitor renal function very closely. Cr up today, 2.4. Less than 2 g daily sodium intake restriction. Accurate input and output Daily weight. CHF counseling <SAGAR Whitney - Last Filed: 06/06/21 15:07> (3) New onset atrial fibrillation: Code(s): I48.91 - Unspecified atrial fibrillation <SAGAR Whitney - Last Filed: 06/06/21 15:07> Status: Acute <SAGAR Whitney - Last Filed: 06/06/21 15:07> Assessment and Plan: New onset atrial fibrillation, appears paroxysmal on telemetry along with possible intermittent junctional escape rhythm. Sinus rhythm not readily observed. Heart rate reasonably controlled without AV orquidea blocking agents. As such, I would be cautious with AV orquidea blocking agents given underlying bundle-branch block, intermittent junctional rhythm, and fairly controlled heart rate in atrial fibrillation suggestive of significant underlying conduction system disease. -CHADS2 Vasc score 4. Eliquis 5 mg b.i.d.. -Sinus rhythm now with ventricular ectopy/trigeminy -Continue low dose metoprolol 12.5 mg BID -Continue telemetry. <SAGAR Whitney - Last Filed: 06/06/21 15:07> (4) Acute kidney injury superimposed on chronic kidney disease: Code(s): N17.9 - Acute kidney failure, unspecified; N18.9 - Chronic kidney disease, unspecified <SAGAR Whitney - Last Filed: 06/06/21 15:07> Status: Acute <SAGAR Whitney - Last Filed: 06/06/21 15:07> Assessment and Plan: Creatinine has increased significantly from 1.5-2.4, etiology unclear, probably multifactorial - leukocytosis and possible underlying infection, diuresis. Nephrology has been consulted, appreciate their input and recs. <SAGAR Whitney - Last Filed: 06/06/21 15:07> (5) Pulmonary hypertension: Code(s): I27.20 - Pulmonary hypertension, unspecified <SAGAR Whitney - Last Filed: 06/06/21 15:07> Status: Acute <SAGAR Whitney - Last Filed: 06/06/21 15:07> Assessment and Plan: Consistent with cor pulmonale. Moderate severity RVSP 51 mm Hg similar to prior echo June 2020. RV enlargement hypokinesis also similar. Lower extremity Dopplers negative for DVT. Given renal failure CT PE protocol may n
--- NOTE | 2021-06-06 15:08 | PCPTNOTE ---
Patient decline therapy services at this time stating he has not ate or had anything to drink today. Patient states he has no energy to do therapy even after educating patient on the benefits of therapy. Patient notes soreness on his right side a 5/10. RN notified of refusal and pain level. RN present in room with exiting.
--- NOTE | 2021-06-06 15:51 | PM.IMPN ---
Progress Note: A&P Additional Plan 71-year-old male with past medical history significant for obesity, pericardial window, hypothyroidism, congestive heart failure, chronic low back pain, chronic venous insufficiency, presented with worsening SOB, increased abdominal girth, B/L leg Swelling 1)Acute Hypoxic Resp Failure: likely 2/2 acute on chronic diastolic HF Has B/l Pleural effusion with leg swelling Also has liver cirrhosis with ascites Appreciate cardiology help c/w O2 support ?started on IV fluids as per cardiology Strict I/o's Daily weight Keep K>4, mag>2 plan for right sided thoracentesis today c/w Azithromycin+Doxycycline for now, likely for 5 days, no consolidation on imaging other than atelectasis 2)JENA on CKD Stage 3A: Appreciate renal help management per renal Avoid nephrotoxins Recheck BMP in AM c/w flomax for urinary retention 3)New Onset of Afibb: tachycardic Will increase dsoe of metoprolol to 50 mg BID resume eliquis tonight 4)Chronic venous insufficiency: Apply Jayesh wraps for now Qshift 5)Fever: Resolved Leucocytosis resolved Will monitor 6)Code:Full, needs goals of care discussion 7)DVT ppx: On Eliquis, 8)Dispo:pending improvement, 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 Time Spent With Patient Time with patient: 25 - 35 minutes Subjective Date/time seen: 06/06/21 15:51 no major change clinically, await thoracentesis today Review of Systems Review of Systems: All systems reviewed & are unremarkable except as noted in HPI and below Constitutional: Constitutional: Reports weakness Eyes: Eyes: Reports no additional eye complaints ENT: Reports system reviewed and no additional complaints, except as documented Cardiovascular: Cardiovascular: Reports leg edema Respiratory: Respiratory: Reports chest congestion and Reports dyspnea Gastrointestinal: Gastrointestinal: Reports bloating Musculoskeletal: Musculoskeletal: Reports no additional musculoskeletal complaints Neurologic: Reports system reviewed and no additional complaints, except as documented Exam Const: General: no acute distress and alert Nutritional Appearance: obese Orientation/consciousness: patient oriented x3 HENMT: Mouth: Yes Abnormal oral and palatal mucosa present Eyes: Pupils: Equal, round and reactive pupils present Resp: Other: decreased breath sounds B/L Cardio: Rate: regular rate Rhythm: regular rhythm GI: Inspection: distended Auscultation: normal bowel sounds Skin: Other: B/L scaling of LE skin due to chronic edema Neuro: Cognition (Neuro): normal cognition Extrem: Other: B/L leg swelling Psych: Mental Status: mental status grossly normal Objective Data Vital Signs Vital Signs: Vital Signs - 24 hr 06/05/21 16:00 06/05/21 16:12 06/05/21 20:00 Temperature 97.5 F L 98.1 F Pulse Rate 120 H 118 H 122 H Respiratory Rate 18 20 Blood Pressure 128/69 151/69 H Pulse Oximetry 96 95 06/05/21 20:35 06/05/21 23:47 06/06/21 00:00 Temperature 98.4 F Pulse Rate 118 H 107 H 119 H Respiratory Rate 20 Blood Pressure 118/66 Pulse Oximetry 95 06/06/21 03:53 06/06/21 04:00 06/06/21 08:00 Temperature 98.0 F 98.3 F Pulse Rate 114 H 112 H 101 H Respiratory Rate 20 18 Blood Pressure 100/65 132/68 Pulse Oximetry 92 92 06/06/21 08:26 06/06/21 09:30 06/06/21 09:31 Temperature Pulse Rate 65 Respiratory Rate Blood Pressure Pulse Oximetry 93 94 06/06/21 12:08 06/06/21 12:32 06/06/21 14:00 Temperature 98.0 F Pulse Rate 71 67 88 Respiratory Rate 24 H 24 H 18 Blood Pressure 129/64 100/59 L 134/70 Pulse Oximetry 97 94 95 Intake/Output Intake/Output: Intake & Output 06/03/21 06/04/21 06/05/21 06/06/21 23:59 23:59 23:59 23:59 Intake Total 1730 1250 360 Output Total 1800 713 449 3800 Balance -70 092 -112 -0506 Meds/Results Medications: Active Medications Generic Name Dose Route Start Last Admin Trade Name Freq PRN Reason Stop Dose Admin Acetami
[2021-06-06] MEDS: SODIUM CHLORIDE 0.9% IV 1,000 ML 75 ML IV CONT (16:25)
[2021-06-06] MEDS: DOXYCYCLINE 100 MG/NS 100 ML 100 MG/100 ML BAG IVPB (18:06)
[2021-06-06] MEDS: METOPROLOL TARTRATE 50 MG TAB PO (21:42)
[2021-06-06] MEDS: APIXABAN 5 MG TABLET PO (21:45)
[2021-06-07] VITALS (15 sets, daily range): BP systolic 109–120; BP diastolic 54–62; PULSE 67–95; RESP 18–20; TEMP 36.4–36.7; O2SAT 94–97
[2021-06-07] MEDS: LEVOTHYROXINE SODIUM 25 MCG TABLET PO (05:46)
[2021-06-07 06:29] LABS: Alanine Aminotransferase 8 U/L (4-50); Albumin Level 3.5 g/dL (3.5-5.1); Alkaline Phosphatase 55 U/L (38-126); Anion Gap 9 mmol/L (8-16); Aspartate Amino Transferase 23 U/L (17-59); Basophils Absolute Auto 0.1 K/mm3 (0.0-0.1); Bilirubin,Total 1.1 mg/dL (0.2-1.3); Blood Urea Nitrogen 41 mg/dL (9-20); Calcium 8.3 mg/dL (8.4-10.2); Carbon Dioxide 28 mmol/L (22-30); Chloride 98 mmol/L (98-107); Eosinophils Absolute Auto 0.3 K/mm3 (0-0.3); Eosinophils Percent Auto 3.3 % (0-4.4); Estimated CRCL calculation 38 ml/min; Estimated Glomerular Filt Rate 22; Glucose 96 mg/dL (65-110); Hemoglobin 10.9 g/dL (14.0-18.0); Immature Granulocyte Absolute 0.05 K/mm3 (0.00-0.031); Immature Granulocyte Percent A 0.6 % (0-0.5); Lymphocytes Absolute Auto 0.85 K/mm3 (0.9-3.2); Lymphocytes Percent Auto 10.3 % (18.3-44.2); Magnesium 2.2 mg/dL (1.6-2.3); Mean Corpuscular HGB Conc 27.9 g/dl (32-36); Mean Corpuscular Hemoglobin 25.8 pg (26-34); Mean Corpuscular Volume 92.4 fl (80-100); Mean Platelet Volume 10.8 fl (7.4-10.4); Monocytes Absolute Auto 0.9 K/mm3 (0.1-0.6); Monocytes Percent Auto 11.2 % (2.6-8.5); Neutrophils Absolute Auto 6.1 K/mm3 (1.3-6.7); Neutrophils Percent Auto 73.6 % (45.5-73.1); Phosphorus 5.6 mg/dL (2.5-4.5); Platelet Count Result 297 k/mm3 (150-375); Potassium 4.2 mmol/L (3.4-5.0); Red Blood Count 4.22 M/mm3 (4.6-6.20); Red Cell Distribution Width 16.1 % (11.5-14.5); Sodium 135 mmol/L (137-145); White Blood Count 8.3 K/mm3 (4.5-10.0)
[2021-06-07] MEDS: LORATADINE 10 MG TABLET PO (08:18)
[2021-06-07] MEDS: TAMSULOSIN HCL 0.4 MG CAPSULE PO (08:18)
[2021-06-07] MEDS: GABAPENTIN 300 MG CAPSULE PO ×4 (08:18→21:01)
[2021-06-07] MEDS: PANTOPRAZOLE 40 MG TABLET PO (08:18)
[2021-06-07] MEDS: ASPIRIN 81 MG ENTERIC TABLET PO (08:18)
[2021-06-07] MEDS: METOPROLOL TARTRATE 50 MG TAB PO ×2 (08:18→21:01)
[2021-06-07] MEDS: APIXABAN 5 MG TABLET PO ×2 (08:18→21:01)
[2021-06-07] MEDS: FLUTICASONE PROPIONATE 0.05% NA SPR 16 GM BTL (*BKC) 1 SPRAY NASAL (08:19)
[2021-06-07] MEDS: TOLNAFTATE 1% POWDER 45 GM BTL 1 APPLIC TOPICAL ×2 (08:19→21:03)
[2021-06-07] MEDS: LACTIC ACID 12% LOTION 225 BTL 1 APPLIC TOPICAL (08:22)
--- NOTE | 2021-06-07 10:46 | ECG_ITS ---
Measurements Intervals [place] Rate: 76 P: AL: 0 QRS: 258 QRSD: 172 T: 68 QT: 442 QTc: 500 Interpretive Statements PROBABLE SINUS RHYTHM WITH 1ST DEGREE AV BLOCK WITH PREMATURE VENTRICULAR CONTRACTIONS RIGHT AXIS DEVIATION [QRS AXIS > 100] RIGHT BUNDLE BRANCH BLOCK [120+ ms QRS DURATION, UPRIGHT V1, 40+ ms S IN I/aVL/V4/V5/V6] ABNORMAL ECG COMPARED TO ECG 06/04/2021 11:52:43 NO SIGNIFICANT CHANGES Electronically Signed On 06-07-2021 13:30:31 CUFF MATCHER by Chon Allen M.D.
[2021-06-07] MEDS: NITROGLYCERIN SL 0.4 MG TABLET SUBLINGUAL ×3 (11:24→11:38)
--- NOTE | 2021-06-07 11:33 | PM.IMPN ---
Progress Note: A&P Assessment and Plan (1) Acute on chronic heart failure: Code(s): I50.9 - Heart failure, unspecified Status: Acute (2) Morbid obesity with BMI of 50.0-59.9, adult: Code(s): E66.01 - Morbid (severe) obesity due to excess calories; Z68.43 - Body mass index [BMI] 50.0-59.9, adult Status: Acute (3) Chronic venous insufficiency: Code(s): I87.2 - Venous insufficiency (chronic) (peripheral) Status: Acute (4) GERD without esophagitis: Code(s): K21.9 - Gastro-esophageal reflux disease without esophagitis Status: Acute (5) Dyslipidemia: Code(s): E78.5 - Hyperlipidemia, unspecified Status: Acute (6) Essential (primary) hypertension: Code(s): I10 - Essential (primary) hypertension Status: Acute (7) Peripheral polyneuropathy: Code(s): G62.9 - Polyneuropathy, unspecified Status: Acute Assessment and Plan: Continue gabapentin (8) AMELIA (obstructive sleep apnea): Code(s): G47.33 - Obstructive sleep apnea (adult) (pediatric) Status: Acute Additional Plan 71-year-old male with past medical history significant for obesity, pericardial window, hypothyroidism, congestive heart failure, chronic low back pain, chronic venous insufficiency, presented with worsening SOB, increased abdominal girth, B/L leg Swelling # Acute Hypoxic Resp Failure: likely 2/2 acute on chronic diastolic HF Has B/l Pleural effusion with leg swelling Also has liver cirrhosis with ascites Appreciate cardiology help c/w O2 support Strict I/o's Daily weight Keep K>4, mag>2 Status post right-sided thoracentesis for pleural effusion c/w Azithromycin+Doxycycline for now, likely for 5 days, no consolidation on imaging other than atelectasis # bilateral pleural effusion right left Likely due to CHF/cirrhosis # JENA on CKD Stage 3A: Appreciate renal help management per renal Avoid nephrotoxins c/w flomax for urinary retention Creatinine continues to go up. Was given a trial of IV fluid 06/06/[address] on 06/04/2021 possibility of contrast nephropathy # New Onset of Afibb: Rate controlled On metoprolol to 50 mg BID resume eliquis # Chronic venous insufficiency: Apply Jayesh wraps for now Qshift # Fever: Resolved Leucocytosis resolved Will monitor # UTI with Enterococcus. Will start vancomycin. 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 Dull achy type. Denies any associated symptoms nonradiating. No fever chills. Shortness of breath about the same. Swelling in the legs and abdomen persist does not feel whole lot better since admission Review of Systems Review of Systems: All systems reviewed & are unremarkable except as noted in HPI and below (HPI) Exam Narrative: Const: General: no acute distress and alert Nutritional Appearance: obese Orientation/consciousness: patient oriented x3 HENMT: Mouth: Yes Abnormal oral and palatal mucosa present Eyes: Pupils: Equal, round and reactive pupils present Resp: Decreased breath sounds bilaterally, not in acute distress Cardio: Rate: regular rate Rhythm: regular rhythm left-sided chest wall tenderness on palpation GI: Soft, distended edematous abdominal wall, normal bowel sounds Skin: Other: B/L scaling of LE skin due to chronic edema Neuro: Cognition (Neuro): normal cognition Extrem: Other: B/L leg swelling 2+ edema Psych: Mental Status: mental status grossly normal Objective Data Vital Signs Vital Signs: Vital Signs - 24 hr 06/06/21 12:00 06/06/21 12:08 06/06/21 12:32 Temperature Pulse Rate 67 71 67 Respiratory Rate 24 H 24 H Blood Pressure 129/64 100/59 L Pulse Oximetry 97 94 06/06/21 14:00 0
[2021-06-07] MEDS: ACETAMINOPHEN 325 MG TABLET PO (11:37)
--- NOTE | 2021-06-07 12:17 | P.PNNP_ITS ---
Progress Note: A&P Assessment and Plan (1) JENA (acute kidney injury): Code(s): N17.9 - Acute kidney failure, unspecified Status: Acute Assessment and Plan: * multifactorial etiology: * possibly diuretics * infection (previous elevated WBC + fever) * relative hypotension (in a patient with difficult to control HTN) * contrast exposure (renal function was already deteriorating prior to dye use) * evaluation to date * urine electrolytes prerenal (likely chemical sales representative of cardiac issues but could represent intravascular volume depletion) * CPK low * urine culture with Enterococcus * no significant response with trial of IVFs * no rash or peripheral eosinophilia * agree with backing off on minoxidil to let his systolic BP rise a bit * if he has a higher BP/better hemodynamics, perhaps renal function will im prove * he does have a history of JENA/ARF ~ 1 year ago that required temporary hemodialysis (JENA thought to be due to AIN) * resume IV diuretics today * follow trend of repeat labs and UOP (2) Stage 3a chronic kidney disease: Code(s): N18.31 - Chronic kidney disease, stage 3a Status: Chronic Assessment and Plan: * baseline creatinine runs ~ 1.4 - 1.7mg/dl in the last few years * due to hypertension and chronic pre renal azotemia due to his poorly f unctioning heart * may be an element of disease progression due to necessity of diuretic titration/escalation to treat his edema (3) Acute on chronic heart failure: Code(s): I50.9 - Heart failure, unspecified Status: Acute Assessment and Plan: * as noted by fluid retention, weight gain, and shortness of breath * resume IV diuretic therapy (was on hold) * Cardiology following * repeat Echo results noted (4) Respiratory failure with hypoxia: Qualifiers: Chronicity: acute Qualified Code(s): J96.01 - Acute respiratory failure with hypoxia Code(s): J96.91 - Respiratory failure, unspecified with hypoxia Status: Acute Assessment and Plan: * multiple issues could be responsible - worsening CHF versus worsening renal dysfunction versus infection/sepsis versus PE... * CTA of chest noted - no PE but pleural effusions present * using BiPAP PRN * s/p thoracentesis (on 06/06/21) with 925cc removed * follow respiratory status closely (5) New onset atrial fibrillation: Code(s): I48.91 - Unspecified atrial fibrillation Status: Acute Assessment and Plan: * new finding * partly to blame for decline in status/renal function(?) * rate control strategy (while trying to avoid hypotension) * on anticoagulation (6) Hypertension: Code(s): I10 - Essential (primary) hypertension Status: Chronic Assessment and Plan: * running a bit lower than baseline * follow trend * attempting to slowly back off on BP meds to increase renal perfusion Will discuss with Cardiology Will continue to follow. Subjective Date/time seen: 06/07/21 12:17 No real significant change since admission -- shortness of breath is about the same and now complaining of left chest pain (dull sensation) at the time of my visit; trial of IVFs yesterday did not seem to have helped things; BP still a bit on the soft side (at least for him given history of HTN); major complaint is that of fatigue/weakness. Exam Narrative: General: WD/WN male in NAD Heart: normal S1 and S2; no rub Lungs: decreased at base with some bibasilar crackles Abdomen: soft, nontende
--- NOTE | 2021-06-07 12:17 | PM.PNNEP ---
Progress Note: A&P Assessment and Plan (1) JENA (acute kidney injury): Code(s): N17.9 - Acute kidney failure, unspecified Status: Acute Assessment and Plan: multifactorial etiology: possibly diuretics infection (previous elevated WBC + fever) relative hypotension (in a patient with difficult to control HTN) contrast exposure (renal function was already deteriorating prior to dye use) evaluation to date urine electrolytes prerenal (likely it sales representative of cardiac issues but could represent intravascular volume depletion) CPK low urine culture with Enterococcus no significant response with trial of IVFs no rash or peripheral eosinophilia agree with backing off on minoxidil to let his systolic BP rise a bit if he has a higher BP/better hemodynamics, perhaps renal function will improve he does have a history of JENA/ARF ~ 1 year ago that required temporary hemodialysis (JENA thought to be due to AIN) resume IV diuretics today follow trend of repeat labs and UOP (2) Stage 3a chronic kidney disease: Code(s): N18.31 - Chronic kidney disease, stage 3a Status: Chronic Assessment and Plan: baseline creatinine runs ~ 1.4 - 1.7mg/dl in the last few years due to hypertension and chronic pre renal azotemia due to his poorly functioning heart may be an element of disease progression due to necessity of diuretic titration/escalation to treat his edema (3) Acute on chronic heart failure: Code(s): I50.9 - Heart failure, unspecified Status: Acute Assessment and Plan: as noted by fluid retention, weight gain, and shortness of breath resume IV diuretic therapy (was on hold) Cardiology following repeat Echo results noted (4) Respiratory failure with hypoxia: Qualifiers: Chronicity: acute Qualified Code(s): J96.01 - Acute respiratory failure with hypoxia Code(s): J96.91 - Respiratory failure, unspecified with hypoxia Status: Acute Assessment and Plan: multiple issues could be responsible - worsening CHF versus worsening renal dysfunction versus infection/sepsis versus PE... CTA of chest noted - no PE but pleural effusions present using BiPAP PRN s/p thoracentesis (on 06/06/21) with 925cc removed follow respiratory status closely (5) New onset atrial fibrillation: Code(s): I48.91 - Unspecified atrial fibrillation Status: Acute Assessment and Plan: new finding partly to blame for decline in status/renal function(?) rate control strategy (while trying to avoid hypotension) on anticoagulation (6) Hypertension: Code(s): I10 - Essential (primary) hypertension Status: Chronic Assessment and Plan: running a bit lower than baseline follow trend attempting to slowly back off on BP meds to increase renal perfusion Will discuss with Cardiology Will continue to follow. Subjective Date/time seen: 06/07/21 12:17 No real significant change since admission -- shortness of breath is about the same and now complaining of left chest pain (dull sensation) at the time of my visit; trial of IVFs yesterday did not seem to have helped things; BP still a bit on the soft side (at least for him given history of HTN); major complaint is that of fatigue/weakness. Exam Narrative: General: WD/WN male in NAD Heart: normal S1 and S2; no rub Lungs: decreased at base with some bibasilar crackles Abdomen: soft, nontender, nondistended, positive bowel sounds Extremities: no cyanosis or clubbing; 2+ edema Skin: chronic skin changes Objective Data Vital Signs Vital Signs: Vital Signs Temp Pulse Resp BP Pulse Ox 06/07/21 10:50 36.4 C 84 20 109/56 L 97 06/07/21 08:18 67 06/07/21 08:00 72 06/07/21 05:48 36.4 C L 67 20 120/59 L 94 06/07/21 04:00 72 06/07/21 00:00 75 06/06/21 22:17 21 H 94 06/06/21 22:16 94 06/06/21 21:57 36.9 C 60 20
--- NOTE | 2021-06-07 13:13 | PCOTNOTE ---
Attempted to see patient this pm, however patient refused stating, No, I don't feel like doing shit to tell you the truth. This heart stuff has got me thrown for a loop. Maybe tomorrow.
--- NOTE | 2021-06-07 14:12 | PCPTNOTE ---
Patient refused treatment this session due to not feeling well. Patient reported he is not feeling well and just not feeling it today.
--- NOTE | 2021-06-07 14:21 | PCPTNOTE ---
Patient declined PT this A.M. stating he did not feel well. Patient reported pain in L chest area. RN notified of patient's c/o pain. PT will continue PT per plan of care.
--- NOTE | 2021-06-07 15:38 | PM.PNCARD ---
Progress Note: A&P Assessment and Plan (1) Respiratory failure with hypoxia: Qualifiers: Chronicity: acute Qualified Code(s): J96.01 - Acute respiratory failure with hypoxia Code(s): J96.91 - Respiratory failure, unspecified with hypoxia Status: Acute Assessment and Plan: Concerning development of leukocytosis, fever and worsening respiratory status with hypoxia requiring O2 supplementation. CT chest showed no PE, stable moderate sized right and small left pleural effusions. WBC stable today, 9.3. Stable on 2L O2. Remains on IV abx. (2) Acute on chronic heart failure with preserved ejection fraction: Code(s): I50.33 - Acute on chronic diastolic (congestive) heart failure Status: Acute Assessment and Plan: Evidence of right and left heart failure with preserved systolic function. Troponin negative. Echo reveals severe RV enlargement and hypokinesis with moderate pulmonary hypertension. Consider thromboembolic disease, lower extremity DVT negative. If pulmonary embolism identified or suspected continue systemic anticoagulation with alteration as appropriate DVT/PE dosing. Complicated pathophysiology with RV failure with balance of pre load and intravascular volume particularly as true volume status very difficult to ascertain given patient's morbid obesity. IV Lasix remains on hold at this time. Will discuss with Nephrology further push with IV fluid versus aggressive diuresis. Repeat chest x-ray in a.m.. Monitor renal function very closely. Cr up again further to 2.8 despite IV fluids. Less than 2 g daily sodium intake restriction. Accurate input and output, urine output remains poor. Daily weight. CHF counseling (3) New onset atrial fibrillation: Code(s): I48.91 - Unspecified atrial fibrillation Status: Acute Assessment and Plan: New onset atrial fibrillation, appears paroxysmal on telemetry along with possible intermittent junctional escape rhythm. Sinus rhythm not readily observed. Heart rate reasonably controlled without AV orquidea blocking agents. As such, I would be cautious with AV orquidea blocking agents given underlying bundle-branch block, intermittent junctional rhythm, and fairly controlled heart rate in atrial fibrillation suggestive of significant underlying conduction system disease. -CHADS2 Vasc score 4. Eliquis 5 mg b.i.d.. -Sinus rhythm now with ventricular ectopy/trigeminy -Continue low dose metoprolol 12.5 mg BID -Continue telemetry. (4) Acute kidney injury superimposed on chronic kidney disease: Code(s): N17.9 - Acute kidney failure, unspecified; N18.9 - Chronic kidney disease, unspecified Status: Acute Assessment and Plan: Creatinine has increased significantly 2.8 today multifactorial concern for further exacerbation due to contrast load, diuresis. Trial of IV fluid given cautiously with 500 cc normal saline overnight. Will discuss with Nephrology their recommendations. Very difficult management decisions. (5) Pulmonary hypertension: Code(s): I27.20 - Pulmonary hypertension, unspecified Status: Acute Assessment and Plan: Consistent with cor pulmonale. Moderate severity RVSP 51 mm Hg similar to prior echo June 2020. RV enlargement hypokinesis also similar. Lower extremity Dopplers negative for DVT. Given renal failure CT PE protocol may not be able to be performed. Ventilation perfusion scan alternative and would be more appropriate to assess for chronic thromboembolic process. (6) Essential (primary) hypertension: Code(s): I10 - Essential (primary) hypertension Status: Acute Assessment and Plan: Controlled. (7) AMELIA (obstructive sleep apnea): Code(s): G47.33 - Obstructive sleep apnea (adult) (pediatric) Status: Acute Assessment and Plan: compliance with BiPAP. (8) Lymphedema of both lower extremities: Code(s): I89.0 - Lymphedema
[2021-06-07] MEDS: BUMETANIDE INJ 2.5 MG/10 ML VIAL 2 MG IV PUSH (17:48)
[2021-06-07] MEDS: DOXYCYCLINE 100 MG/NS 100 ML 100 MG/100 ML BAG IVPB (17:48)
[2021-06-08] VITALS (14 sets, daily range): BP systolic 115–124; BP diastolic 56–73; PULSE 63–89; RESP 18–20; TEMP 36.6–36.8; O2SAT 94–96
[2021-06-08 06:02] LABS: Basophils Absolute Auto 0.1 K/mm3 (0.0-0.1); Basophils Percent Auto 1.1 % (0.2-1.2); Eosinophils Absolute Auto 0.4 K/mm3 (0-0.3); Eosinophils Percent Auto 4.7 % (0-4.4); Hematocrit 35.8 % (42.0-52.0); Hemoglobin 10.4 g/dL (14.0-18.0); Immature Granulocyte Absolute 0.04 K/mm3 (0.00-0.031); Immature Granulocyte Percent A 0.5 % (0-0.5); Lymphocytes Absolute Auto 0.83 K/mm3 (0.9-3.2); Lymphocytes Percent Auto 10.9 % (18.3-44.2); Mean Corpuscular HGB Conc 29.1 g/dl (32-36); Mean Corpuscular Hemoglobin 26.2 pg (26-34); Mean Corpuscular Volume 90.2 fl (80-100); Mean Platelet Volume 11.2 fl (7.4-10.4); Monocytes Absolute Auto 0.9 K/mm3 (0.1-0.6); Monocytes Percent Auto 11.8 % (2.6-8.5); Neutrophils Absolute Auto 5.4 K/mm3 (1.3-6.7); Platelet Count Result 310 k/mm3 (150-375); Red Blood Count 3.97 M/mm3 (4.6-6.20); Red Cell Distribution Width 15.7 % (11.5-14.5); White Blood Count 7.6 K/mm3 (4.5-10.0)
[2021-06-08] MEDS: LEVOTHYROXINE SODIUM 25 MCG TABLET PO (06:12)
[2021-06-08 06:14] LABS: Alanine Aminotransferase 9 U/L (4-50); Albumin Level 3.4 g/dL (3.5-5.1); Alkaline Phosphatase 58 U/L (38-126); Anion Gap 8 mmol/L (8-16); Aspartate Amino Transferase 25 U/L (17-59); Bilirubin,Total 0.9 mg/dL (0.2-1.3); Blood Urea Nitrogen 45 mg/dL (9-20); Calcium 8.3 mg/dL (8.4-10.2); Carbon Dioxide 29 mmol/L (22-30); Chloride 97 mmol/L (98-107); Estimated CRCL calculation 34 ml/min; Estimated Glomerular Filt Rate 20; Glucose 97 mg/dL (65-110); Magnesium 2.3 mg/dL (1.6-2.3); Phosphorus 5.2 mg/dL (2.5-4.5); Potassium 4.2 mmol/L (3.4-5.0); Sodium 134 mmol/L (137-145)
--- NOTE | 2021-06-08 07:52 | PCOTNOTE ---
Attempted to see patient this am, however patient refused stating, No hon, not now.
[2021-06-08] MEDS: APIXABAN 5 MG TABLET PO ×2 (08:05→21:03)
[2021-06-08] MEDS: PANTOPRAZOLE 40 MG TABLET PO (08:05)
[2021-06-08] MEDS: METOPROLOL TARTRATE 50 MG TAB PO ×2 (08:05→21:03)
[2021-06-08] MEDS: ASPIRIN 81 MG ENTERIC TABLET PO (08:05)
[2021-06-08] MEDS: GABAPENTIN 300 MG CAPSULE PO ×4 (08:05→21:03)
[2021-06-08] MEDS: LORATADINE 10 MG TABLET PO (08:07)
[2021-06-08] MEDS: TAMSULOSIN HCL 0.4 MG CAPSULE PO (08:07)
[2021-06-08] MEDS: PSYLLIUM POWDER PACKET 1 PACKET PO (08:07)
[2021-06-08] MEDS: BUMETANIDE INJ 2.5 MG/10 ML VIAL 2 MG IV PUSH ×2 (08:07→17:09)
[2021-06-08] MEDS: TOLNAFTATE 1% POWDER 45 GM BTL 1 APPLIC TOPICAL ×2 (08:10→21:07)
[2021-06-08] MEDS: FLUTICASONE PROPIONATE 0.05% NA SPR 16 GM BTL (*BKC) 1 SPRAY NASAL (08:10)
[2021-06-08] MEDS: LACTIC ACID 12% LOTION 225 BTL 1 APPLIC TOPICAL (08:10)
--- NOTE | 2021-06-08 11:43 | PCOTNOTE ---
Attempted to see patient second and third time this am, however patient was unavailable with testing and nursing staff.
--- NOTE | 2021-06-08 12:12 | PM.PNNEP ---
Progress Note: A&P Assessment and Plan (1) JENA (acute kidney injury): Code(s): N17.9 - Acute kidney failure, unspecified Status: Acute Assessment and Plan: multifactorial etiology: possibly diuretics (which likely worsened his known chronic prerenal azotemia from cardiac and liver disease) infection (previous elevated WBC + fever; UTI + infected pleural fluid) relative hypotension (in a patient with difficult to control HTN) contrast exposure (renal function was already deteriorating prior to dye use) evaluation to date urine electrolytes prerenal (likely direct sales representative of cardiac/liver issues but could represent intravascular volume depletion) CPK low urine culture with Enterococcus no significant response with trial of IVFs renal ultrasound without obstruction no rash or peripheral eosinophilia agree with backing off on minoxidil/BP medications to let his systolic BP rise a bit if he has a higher BP/better hemodynamics, perhaps renal function will improve he does have a history of JENA/ARF ~ 1 year ago that required temporary hemodialysis (JENA thought to be due to AIN) back on IV diuretics -- urine output poor and creatinine rising remains at risk for needing ASSISTANT SPA MANAGER/dialysis once again follow trend of repeat labs and UOP (2) Stage 3a chronic kidney disease: Code(s): N18.31 - Chronic kidney disease, stage 3a Status: Chronic Assessment and Plan: baseline creatinine runs ~ 1.4 - 1.7mg/dl in the last few years due to hypertension and chronic pre renal azotemia due to his poorly functioning heart and possibly new liver disease may be an element of disease progression due to necessity of diuretic titration/escalation to treat his edema (3) Acute on chronic heart failure: Code(s): I50.9 - Heart failure, unspecified Status: Acute Assessment and Plan: as noted by fluid retention, weight gain, and shortness of breath resumed on IV diuretic therapy (was on hold) Cardiology following repeat Echo results noted should be consider a lasix /bumex gtt?? (4) Respiratory failure with hypoxia: Qualifiers: Chronicity: acute Qualified Code(s): J96.01 - Acute respiratory failure with hypoxia Code(s): J96.91 - Respiratory failure, unspecified with hypoxia Status: Acute Assessment and Plan: multiple issues could be responsible - worsening CHF versus worsening renal dysfunction versus infection/sepsis versus PE... CTA of chest noted - no PE but pleural effusions present using BiPAP PRN s/p thoracentesis (on 06/06/21) with 925cc removed - PD fluid culture with Staph follow respiratory status closely (5) New onset atrial fibrillation: Code(s): I48.91 - Unspecified atrial fibrillation Status: Acute Assessment and Plan: new finding partly to blame for decline in status/renal function(?) rate control strategy (while trying to avoid hypotension) on anticoagulation (6) Hypertension: Code(s): I10 - Essential (primary) hypertension Status: Chronic Assessment and Plan: running a bit lower than baseline follow trend attempting to back off on BP meds to increase renal perfusion (but this has not really helped renal function) Long and extensive discussion (> 20 minutes) regarding his deteriorating renal function despite all interventions to date; he is aware that he may need ASSISTANT SPA MANAGER/dialysis again if his kidney function continues to deteriorate. Will continue to follow. Subjective Date/time seen: 06/08/21 12:12 Still not making much urine output although he was just restarted on IV diuretics yesterday afternoon; overall, he states he feels about the same; shortness of breath more noticeable with exertional activity; no events overnight or earlier this morning. Exam Narrative: General: WD/WN male in NAD Heart: normal S1 and S2; no rub Lungs: decreased at base with some bibasilar c
--- NOTE | 2021-06-08 12:12 | P.PNNP_ITS ---
Progress Note: A&P Assessment and Plan (1) JENA (acute kidney injury): Code(s): N17.9 - Acute kidney failure, unspecified Status: Acute Assessment and Plan: * multifactorial etiology: * possibly diuretics (which likely worsened his known chronic prerenal azotemia from cardiac and liver disease) * infection (previous elevated WBC + fever; UTI + infected pleural fluid) * relative hypotension (in a patient with difficult to control HTN) * contrast exposure (renal function was already deteriorating prior to dye use) * evaluation to date * urine electrolytes prerenal (likely inbound call center representative of cardiac/liver issues but could represent intravascular volume depletion) * CPK low * urine culture with Enterococcus * no significant response with trial of IVFs * renal ultrasound without obstruction * no rash or peripheral eosinophilia * agree with backing off on minoxidil/BP medications to let his systolic BP rise a bit * if he has a higher BP/better hemodynamics, perhaps renal function will improve * he does have a history of JENA/ARF ~ 1 year ago that required temporary hemodialysis (JENA thought to be due to AIN) * back on IV diuretics -- urine output poor and creatinine rising * remains at risk for needing BUILDING CUSTODIAL SUPERVISOR/dialysis once again * follow trend of repeat labs and UOP (2) Stage 3a chronic kidney disease: Code(s): N18.31 - Chronic kidney disease, stage 3a Status: Chronic Assessment and Plan: * baseline creatinine runs ~ 1.4 - 1.7mg/dl in the last few years * due to hypertension and chronic pre renal azotemia due to his poorly functioning heart and possibly new liver disease * may be an element of disease progression due to necessity of diuretic titration/escalation to treat his edema (3) Acute on chronic heart failure: Code(s): I50.9 - Heart failure, unspecified Status: Acute Assessment and Plan: * as noted by fluid retention, weight gain, and shortness of breath * resumed on IV diuretic therapy (was on hold) * Cardiology following * repeat Echo results noted * should be consider a lasix /bumex gtt?? (4) Respiratory failure with hypoxia: Qualifiers: Chronicity: acute Qualified Code(s): J96.01 - Acute respiratory failure with hypoxia Code(s): J96.91 - Respiratory failure, unspecified with hypoxia Status: Acute Assessment and Plan: * multiple issues could be responsible - worsening CHF versus worsening renal dysfunction versus infection/sepsis versus PE... * CTA of chest noted - no PE but pleural effusions present * using BiPAP PRN * s/p thoracentesis (on 06/06/21) with 925cc removed - PD fluid culture with Staph * follow respiratory status closely (5) New onset atrial fibrillation: Code(s): I48.91 - Unspecified atrial fibrillation Status: Acute Assessment and Plan: * new finding * partly to blame for decline in status/renal function(?) * rate control strategy (while trying to avoid hypotension) * on anticoagulation (6) Hypertension: Code(s): I10 - Essential (primary) hypertension Status: Chronic Assessment and Plan: * running a bit lower than baseline * follow trend * attempting to back off on BP meds to increase renal perfusion (but this has not really helped renal function) Long and extensive discussion (> 20 minutes) regarding his deteriorating renal function despite all interventions to date; he is aware that he may need BUILDING CUSTODIAL SUPERVISOR/dialysis again if his kidney function continues to deteriorate.
--- NOTE | 2021-06-08 13:52 | PM.PNCARD ---
Progress Note: A&P Assessment and Plan (1) Respiratory failure with hypoxia: Qualifiers: Chronicity: acute Qualified Code(s): J96.01 - Acute respiratory failure with hypoxia <SAGAR Whitney - Last Filed: 06/08/21 14:09> Code(s): J96.91 - Respiratory failure, unspecified with hypoxia <SAGAR Whitney - Last Filed: 06/08/21 14:09> Status: Acute <SAGAR Whitney - Last Filed: 06/08/21 14:09> Assessment and Plan: Concerning development of leukocytosis, fever and worsening respiratory status with hypoxia requiring O2 supplementation. CT chest showed no PE, stable moderate sized right and small left pleural effusions. WBC stable today, 9.3. Stable on 2L O2. Remains on IV abx. <SAGAR Whitney - Last Filed: 06/08/21 14:09> (2) Acute on chronic heart failure with preserved ejection fraction: Code(s): I50.33 - Acute on chronic diastolic (congestive) heart failure <SAGAR Whitney - Last Filed: 06/08/21 14:09> Status: Acute <SAGAR Whitney - Last Filed: 06/08/21 14:09> Assessment and Plan: Evidence of right and left heart failure with preserved systolic function. Troponin negative. Echo reveals severe RV enlargement and hypokinesis with moderate pulmonary hypertension. Consider thromboembolic disease, lower extremity DVT negative. If pulmonary embolism identified or suspected continue systemic anticoagulation with alteration as appropriate DVT/PE dosing. Complicated pathophysiology with RV failure with balance of pre load and intravascular volume particularly as true volume status very difficult to ascertain given patient's morbid obesity. Bumex 2mg IV b.i.d. has been started per nephrology Monitor renal function very closely. Cr 3.1 today. Less than 2 g daily sodium intake restriction. Accurate input and output, urine output remains poor. Daily weight. CHF counseling <SAGAR Whitney - Last Filed: 06/08/21 14:09> (3) New onset atrial fibrillation: Code(s): I48.91 - Unspecified atrial fibrillation <SAGAR Whitney - Last Filed: 06/08/21 14:09> Status: Acute <SAGAR Whitney - Last Filed: 06/08/21 14:09> Assessment and Plan: New onset atrial fibrillation, appears paroxysmal on telemetry along with possible intermittent junctional escape rhythm. Sinus rhythm not readily observed. Heart rate reasonably controlled without AV orquidea blocking agents. As such, I would be cautious with AV orquidea blocking agents given underlying bundle-branch block, intermittent junctional rhythm, and fairly controlled heart rate in atrial fibrillation suggestive of significant underlying conduction system disease. -CHADS2 Vasc score 4. Eliquis 5 mg b.i.d.. -Sinus rhythm now with ventricular ectopy/trigeminy -Continue low dose metoprolol 12.5 mg BID -Continue telemetry. <SAGAR Whitney - Last Filed: 06/08/21 14:09> (4) Acute kidney injury superimposed on chronic kidney disease: Code(s): N17.9 - Acute kidney failure, unspecified; N18.9 - Chronic kidney disease, unspecified <SAGAR Whitney - Last Filed: 06/08/21 14:09> Status: Acute <SAGAR Whitney - Last Filed: 06/08/21 14:09> Assessment and Plan: Creatinine has increased significantly 3.1 today; etiology multifactorial. Renal u/s today negative for hydronephrosis. Per nephrology patient has been restarted on diuretics as above. Difficult management. <SAGAR Whitney - Last Filed: 06/08/21 14:09> (5) Pulmonary hypertension: Code(s): I27.20 - Pulmonary hypertension, unspecified <SAGAR Whitney - Last Filed: 06/08/21 14:09> Status: Acute <SAGAR Whitney - Last Filed: 06/08/21 14:09> Assessment and Plan: Consistent with cor pulmonale. Moderate severity RVSP 51 mm Hg similar to prior echo June 2020.
--- NOTE | 2021-06-08 15:40 | PM.IMPN ---
Progress Note: A&P Assessment and Plan (1) Acute on chronic heart failure: Code(s): I50.9 - Heart failure, unspecified Status: Acute (2) Morbid obesity with BMI of 50.0-59.9, adult: Code(s): E66.01 - Morbid (severe) obesity due to excess calories; Z68.43 - Body mass index [BMI] 50.0-59.9, adult Status: Acute (3) Chronic venous insufficiency: Code(s): I87.2 - Venous insufficiency (chronic) (peripheral) Status: Acute (4) GERD without esophagitis: Code(s): K21.9 - Gastro-esophageal reflux disease without esophagitis Status: Acute (5) Dyslipidemia: Code(s): E78.5 - Hyperlipidemia, unspecified Status: Acute (6) Essential (primary) hypertension: Code(s): I10 - Essential (primary) hypertension Status: Acute (7) Peripheral polyneuropathy: Code(s): G62.9 - Polyneuropathy, unspecified Status: Acute Assessment and Plan: Continue gabapentin (8) AMELIA (obstructive sleep apnea): Code(s): G47.33 - Obstructive sleep apnea (adult) (pediatric) Status: Acute Additional Plan 71-year-old male with past medical history significant for obesity, pericardial window, hypothyroidism, congestive heart failure, chronic low back pain, chronic venous insufficiency, presented with worsening SOB, increased abdominal girth, B/L leg Swelling # Acute Hypoxic Resp Failure: likely 2/2 acute on chronic diastolic HF Has B/l Pleural effusion with leg swelling Also has liver cirrhosis with ascites Appreciate cardiology help c/w O2 support Strict I/o's Daily weight Keep K>4, mag>2 Status post right-sided thoracentesis for pleural effusion c/w Azithromycin+Doxycycline for now, likely for 5 days, no consolidation on imaging other than atelectasis this has been discontinued and switched to vancomycin. Pleural fluid culture came back positive for Staph aureus little be identified further. Started on vancomycin yesterday which will be continued. # bilateral pleural effusion right left Likely due to CHF/cirrhosis Status post thoracentesis with culture being positive for Staph aureus suggestive of parapneumonic effusion. Vancomycin as ordered # JENA on CKD Stage 3A: Appreciate renal help management per renal Avoid nephrotoxins c/w flomax for urinary retention Creatinine continues to go up. Was given a trial of IV fluid 06/06/[address] on 06/04/2021 possibility of contrast nephropathy Creatinine continues to worsen. Poor urine output hypervolemic on examination. Diuretics has been restarted by Nephrology. Continue to monitor renal function # New Onset of Afibb: Rate controlled On metoprolol to 50 mg BID resume eliquis # Chronic venous insufficiency: Apply Jayesh wraps for now Qshift # Fever: Resolved Leucocytosis resolved Will monitor # UTI with Enterococcus. Continue vancomycin. 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 Dull achy type. Denies any associated symptoms nonradiating. No fever chills. Shortness of breath about the same. Swelling in the legs and abdomen persist does not feel whole lot better since admission 06/08/2021 no overnight events feels about the same. Pleural fluid culture positive for Staph aureus. Remains afebrile. Renal ultrasound this morning is negative for hydronephrosis. Making poor urine output. Review of Systems Review of Systems: All systems reviewed & are unremarkable except as noted in HPI and below (HPI) Exam Narrative: Const: General: no acute distress and alert Nutritional Appearance: obese Orientation/consciousness: patient oriented x3 HENMT: Mouth: Yes Abnormal oral and palatal mucosa present Eyes: Pupils: Equal, round and reactive pupils pre
[2021-06-09] VITALS (19 sets, daily range): BP systolic 113–130; BP diastolic 57–82; PULSE 61–124; RESP 18–24; TEMP 36.1–36.6; O2SAT 92–100
[2021-06-09 06:16] LABS: Basophils Absolute Auto 0.1 K/mm3 (0.0-0.1); Basophils Percent Auto 1.3 % (0.2-1.2); Eosinophils Absolute Auto 0.4 K/mm3 (0-0.3); Eosinophils Percent Auto 5.9 % (0-4.4); Hematocrit 37.6 % (42.0-52.0); Hemoglobin 10.8 g/dL (14.0-18.0); Immature Granulocyte Absolute 0.04 K/mm3 (0.00-0.031); Immature Granulocyte Percent A 0.6 % (0-0.5); Lymphocytes Absolute Auto 0.84 K/mm3 (0.9-3.2); Lymphocytes Percent Auto 11.7 % (18.3-44.2); Mean Corpuscular HGB Conc 28.7 g/dl (32-36); Mean Corpuscular Hemoglobin 26.2 pg (26-34); Mean Platelet Volume 11.1 fl (7.4-10.4); Monocytes Absolute Auto 0.9 K/mm3 (0.1-0.6); Monocytes Percent Auto 12.2 % (2.6-8.5); Neutrophils Absolute Auto 4.9 K/mm3 (1.3-6.7); Neutrophils Percent Auto 68.3 % (45.5-73.1); Platelet Count Result 301 k/mm3 (150-375); Red Blood Count 4.13 M/mm3 (4.6-6.20); White Blood Count 7.2 K/mm3 (4.5-10.0)
[2021-06-09] MEDS: LEVOTHYROXINE SODIUM 25 MCG TABLET PO (06:17)
[2021-06-09 06:25] LABS: Alanine Aminotransferase 9 U/L (4-50); Albumin Level 3.3 g/dL (3.5-5.1); Alkaline Phosphatase 56 U/L (38-126); Anion Gap 7 mmol/L (8-16); Aspartate Amino Transferase 27 U/L (17-59); Bilirubin,Total 0.6 mg/dL (0.2-1.3); Blood Urea Nitrogen 46 mg/dL (9-20); Calcium 8.2 mg/dL (8.4-10.2); Carbon Dioxide 30 mmol/L (22-30); Chloride 97 mmol/L (98-107); Estimated CRCL calculation 34 ml/min; Estimated Glomerular Filt Rate 20; Glucose 88 mg/dL (65-110); Magnesium 2.4 mg/dL (1.6-2.3); Phosphorus 5.4 mg/dL (2.5-4.5); Potassium 4.3 mmol/L (3.4-5.0); Sodium 134 mmol/L (137-145)
[2021-06-09] MEDS: LEVOTHYROXINE SODIUM 100 MCG TABLET 200 MCG PO (06:50)
[2021-06-09] MEDS: GABAPENTIN 300 MG CAPSULE PO ×3 (08:20→20:45)
[2021-06-09] MEDS: BUMETANIDE INJ 2.5 MG/10 ML VIAL 2 MG IV PUSH ×2 (08:21→17:17)
[2021-06-09] MEDS: METOPROLOL TARTRATE 50 MG TAB PO ×2 (08:21→20:45)
[2021-06-09] MEDS: PANTOPRAZOLE 40 MG TABLET PO (08:21)
[2021-06-09] MEDS: LORATADINE 10 MG TABLET PO (08:21)
[2021-06-09] MEDS: TAMSULOSIN HCL 0.4 MG CAPSULE PO (08:22)
[2021-06-09] MEDS: APIXABAN 5 MG TABLET PO (08:22)
[2021-06-09] MEDS: PSYLLIUM POWDER PACKET 1 PACKET PO (08:22)
[2021-06-09] MEDS: ASPIRIN 81 MG ENTERIC TABLET PO (08:22)
[2021-06-09] MEDS: TOLNAFTATE 1% POWDER 45 GM BTL 1 APPLIC TOPICAL ×2 (08:23→20:47)
[2021-06-09] MEDS: FLUTICASONE PROPIONATE 0.05% NA SPR 16 GM BTL (*BKC) 1 SPRAY NASAL (08:24)
[2021-06-09] MEDS: LACTIC ACID 12% LOTION 225 BTL 1 APPLIC TOPICAL (08:24)
--- NOTE | 2021-06-09 10:04 | PM.PNCARD ---
Progress Note: A&P Assessment and Plan (1) Respiratory failure with hypoxia: Qualifiers: Chronicity: acute Qualified Code(s): J96.01 - Acute respiratory failure with hypoxia <SAGAR Whitney - Last Filed: 06/09/21 10:41> Code(s): J96.91 - Respiratory failure, unspecified with hypoxia <SAGAR Whitney - Last Filed: 06/09/21 10:41> Status: Acute <SAGAR Whitney - Last Filed: 06/09/21 10:41> Assessment and Plan: Concerning development of leukocytosis, fever and worsening respiratory status with hypoxia requiring O2 supplementation. CT chest showed no PE, stable moderate sized right and small left pleural effusions. WBC stable. Stable on 2L O2. Remains on IV abx. <SAGAR Whitney - Last Filed: 06/09/21 10:41> (2) Acute on chronic heart failure with preserved ejection fraction: Code(s): I50.33 - Acute on chronic diastolic (congestive) heart failure <SAGAR Whitney - Last Filed: 06/09/21 10:41> Status: Acute <SAGAR Whitney - Last Filed: 06/09/21 10:41> Assessment and Plan: Evidence of right and left heart failure with preserved systolic function. Troponin negative. Echo reveals severe RV enlargement and hypokinesis with moderate pulmonary hypertension. Consider thromboembolic disease, lower extremity DVT negative. If pulmonary embolism identified or suspected continue systemic anticoagulation with alteration as appropriate DVT/PE dosing. Complicated pathophysiology with RV failure with balance of pre load and intravascular volume particularly as true volume status very difficult to ascertain given patient's morbid obesity. Bumex 2mg IV b.i.d. has been started per nephrology Spoke with Dr. Al, plan to c/s surgery for dialysis line placement for fluid removal Will hold apixaban in anticipation for line placement Monitor renal function very closely. Cr 3.1 today. Less than 2 g daily sodium intake restriction. Accurate input and output, urine output remains poor. Daily weight. CHF counseling <SAGAR Whitney - Last Filed: 06/09/21 10:41> (3) New onset atrial fibrillation: Code(s): I48.91 - Unspecified atrial fibrillation <SAGAR Whitney - Last Filed: 06/09/21 10:41> Status: Acute <SAGAR Whitney - Last Filed: 06/09/21 10:41> Assessment and Plan: New onset atrial fibrillation, appears paroxysmal on telemetry along with possible intermittent junctional escape rhythm. Sinus rhythm not readily observed. Heart rate reasonably controlled without AV orquidea blocking agents. As such, I would be cautious with AV orquidea blocking agents given underlying bundle-branch block, intermittent junctional rhythm, and fairly controlled heart rate in atrial fibrillation suggestive of significant underlying conduction system disease. -CHADS2 Vasc score 4. Eliquis 5 mg b.i.d.. Will hold for now for dialysis catheter placement. -Sinus rhythm now with ventricular ectopy/trigeminy -Continue low dose metoprolol 12.5 mg BID -Continue telemetry. <SAGAR Whitney - Last Filed: 06/09/21 10:41> (4) Acute kidney injury superimposed on chronic kidney disease: Code(s): N17.9 - Acute kidney failure, unspecified; N18.9 - Chronic kidney disease, unspecified <SAGAR Whitney - Last Filed: 06/09/21 10:41> Status: Acute <SAGAR Whitney - Last Filed: 06/09/21 10:41> Assessment and Plan: Creatinine has increased significantly 3.1 today; etiology multifactorial. Renal u/s today negative for hydronephrosis. Per nephrology patient has been restarted on diuretics as above. Plan for fluid removal with dialysis. Difficult management. <SAGAR Whitney - Last Filed: 06/09/21 10:41> (5) Pulmonary hypertension: Code(s): I27.20 - Pulmonary hypertension, unspecified <SAGAR Whitney - Last Filed:
--- NOTE | 2021-06-09 10:39 | P.PNNP_ITS ---
Progress Note: A&P Assessment and Plan (1) JENA (acute kidney injury): Code(s): N17.9 - Acute kidney failure, unspecified Status: Acute Assessment and Plan: * multifactorial etiology: * possibly diuretics (which likely worsened his known chronic prerenal azotemia from cardiac and liver disease) * infection (previous elevated WBC + fever; UTI + infected pleural fluid) * relative hypotension (in a patient with difficult to control HTN) * renal venous hypertension * contrast exposure (renal function was already deteriorating prior to dye use) * evaluation to date * urine electrolytes prerenal (likely volunteer patient representative of cardiac/liver issues but could represent intravascular volume depletion) * CPK low * urine culture with Enterococcus * pleural fluid with staph * no significant response with trial of IVFs * renal ultrasound without obstruction * no rash but has developed peripheral eosinophilia again. * agree with backing off on minoxidil/BP medications to let his systolic BP rise a bit * he does have a history of JENA/ARF ~ 1 year ago that required temporary hemodialysis (JENA thought to be due to AIN) * however the main similarity is the gross volume overload, so maybe renal venous hypertension is the culprit. I will place a dialysis cath and start dry ultrafiltration to see if this improves kidney function. he is on apixipan so have to hold this and do cath tomorrow. I discussed the risk bene fits process and alternatives to dialysis. The patient remembers having done this last year and agrees to proceed. * if not consider steroids at that time. * back on IV diuretics -- urine output poor and creatinine rising * try lasix drip for today. (2) Stage 3a chronic kidney disease: Code(s): N18.31 - Chronic kidney disease, stage 3a Status: Chronic Assessment and Plan: * baseline creatinine runs ~ 1.4 - 1.7mg/dl in the last few years * due to hypertension and chronic pre renal azotemia due to his poorly functioning heart and possibly new liver disease * may be an element of disease progression due to necessity of diuretic titration/escalation to treat his edema (3) Acute on chronic heart failure: Code(s): I50.9 - Heart failure, unspecified Status: Acute Assessment and Plan: * as noted by fluid retention, weight gain, and shortness of breath * resumed on IV diuretic therapy (was on hold) * Cardiology following * repeat Echo results noted (4) Respiratory failure with hypoxia: Qualifiers: Chronicity: acute Qualified Code(s): J96.01 - Acute respiratory failure with hypoxia Code(s): J96.91 - Respiratory failure, unspecified with hypoxia Status: Acute Assessment and Plan: * multiple issues could be responsible - worsening CHF versus worsening renal dysfunction versus infection/sepsis versus PE... * CTA of chest noted - no PE but pleural effusions present * using BiPAP PRN * s/p thoracentesis (on 06/06/21) with 925cc removed - PD fluid culture with Staph but pH is okay and not many wbcs. contaminant? * getting vancomycin anyway due to urine enterococcus.. * follow respiratory status closely (5) New onset atrial fibrillation: Code(s): I48.91 - Unspecified atrial fibrillation Status: Acute Assessment and Plan: * new finding * partly to blame for decline in status/renal function(?) * rate control strategy (while trying to avoid hypotension) * on anticoagulation (6) Hypertension: Code(s): I10 - Essential (primary) hypertension
--- NOTE | 2021-06-09 10:39 | PM.PNNEP ---
Progress Note: A&P Assessment and Plan (1) JENA (acute kidney injury): Code(s): N17.9 - Acute kidney failure, unspecified Status: Acute Assessment and Plan: multifactorial etiology: possibly diuretics (which likely worsened his known chronic prerenal azotemia from cardiac and liver disease) infection (previous elevated WBC + fever; UTI + infected pleural fluid) relative hypotension (in a patient with difficult to control HTN) renal venous hypertension contrast exposure (renal function was already deteriorating prior to dye use) evaluation to date urine electrolytes prerenal (likely inbound call center representative of cardiac/liver issues but could represent intravascular volume depletion) CPK low urine culture with Enterococcus pleural fluid with staph no significant response with trial of IVFs renal ultrasound without obstruction no rash but has developed peripheral eosinophilia again. agree with backing off on minoxidil/BP medications to let his systolic BP rise a bit he does have a history of JENA/ARF ~ 1 year ago that required temporary hemodialysis (JENA thought to be due to AIN) however the main similarity is the gross volume overload, so maybe renal venous hypertension is the culprit. I will place a dialysis cath and start dry ultrafiltration to see if this improves kidney function. he is on apixipan so have to hold this and do cath tomorrow. I discussed the risk benefits process and alternatives to dialysis. The patient remembers having done this last year and agrees to proceed. if not consider steroids at that time. back on IV diuretics -- urine output poor and creatinine rising try lasix drip for today. (2) Stage 3a chronic kidney disease: Code(s): N18.31 - Chronic kidney disease, stage 3a Status: Chronic Assessment and Plan: baseline creatinine runs ~ 1.4 - 1.7mg/dl in the last few years due to hypertension and chronic pre renal azotemia due to his poorly functioning heart and possibly new liver disease may be an element of disease progression due to necessity of diuretic titration/escalation to treat his edema (3) Acute on chronic heart failure: Code(s): I50.9 - Heart failure, unspecified Status: Acute Assessment and Plan: as noted by fluid retention, weight gain, and shortness of breath resumed on IV diuretic therapy (was on hold) Cardiology following repeat Echo results noted (4) Respiratory failure with hypoxia: Qualifiers: Chronicity: acute Qualified Code(s): J96.01 - Acute respiratory failure with hypoxia Code(s): J96.91 - Respiratory failure, unspecified with hypoxia Status: Acute Assessment and Plan: multiple issues could be responsible - worsening CHF versus worsening renal dysfunction versus infection/sepsis versus PE... CTA of chest noted - no PE but pleural effusions present using BiPAP PRN s/p thoracentesis (on 06/06/21) with 925cc removed - PD fluid culture with Staph but pH is okay and not many wbcs. contaminant? getting vancomycin anyway due to urine enterococcus.. follow respiratory status closely (5) New onset atrial fibrillation: Code(s): I48.91 - Unspecified atrial fibrillation Status: Acute Assessment and Plan: new finding partly to blame for decline in status/renal function(?) rate control strategy (while trying to avoid hypotension) on anticoagulation (6) Hypertension: Code(s): I10 - Essential (primary) hypertension Status: Chronic Assessment and Plan: running a bit lower than baseline follow trend I agree with backing off on bp meds. Subjective Date/time seen: 06/09/21 10:39 Interval history: patient is alert. He is tired of having so much swelling. He says he gained about 70 lb in the last few weeks. He is not short of breath lying in bed In semi-small's position. Exam Narrative: General: WD/WN
[2021-06-09 11:00] LABS: Hepatitis B Surface Antigen Negative (Negative)
[2021-06-09 11:05] LABS: Hepatitis B Core IgM Result Negative (Negative)
--- NOTE | 2021-06-09 11:09 | PCPTNOTE ---
Patient declined PT stating I need to get some of this fluid off of me. Patient scheduled for surgery this afternoon to place catheter for dialysis. PT will continue to follow per plan of care.
[2021-06-09 11:18] LABS: Hepatitis B Surface Anti Res Negative
--- NOTE | 2021-06-09 12:22 | PCNWS ---
Weekly nutritional screen. Patient screened in for 7 day length of stay. Patient is tolerating current diet with adequate intake. No weight loss reported. No nutritional interventions at this time. No nutritional needs at this time. Will follow up in 7 days if pt is not discharged.
--- NOTE | 2021-06-09 12:30 | PM.CNGS ---
Assessment and Plan Assessment and plan (1) JENA (acute kidney injury): Code(s): N17.9 - Acute kidney failure, unspecified Status: Acute (2) Encounter for central line placement: Code(s): Z45.2 - Encounter for adjustment and management of vascular access device Status: Acute Assessment and Plan: PLAN TO PLACE NON TUNNELED CENTRAL VENOUS CATHETER FOR DIALYSIS REQUESTED BY NEPHROLOGY. DISCUSSED THIS WITH THE PATIENT. HE UNDERSTANDS HE IS ON BLOOD THINNER. WILL DO THIS IN THE OPERATING ROOM UNDER FLUOROSCOPY. (3) Chronic anticoagulation: Code(s): Z79.01 - skilled nursing (current) use of anticoagulants Status: Acute Assessment and Plan: Would need to wait 48 hours for Eliquis affect to resolve. Should be safe to proceed with non tunneled catheter. (4) Morbid obesity with BMI of 50.0-59.9, adult: Code(s): E66.01 - Morbid (severe) obesity due to excess calories; Z68.43 - Body mass index [BMI] 50.0-59.9, adult Status: Acute History of Present Illness Consult details Consult date: 06/09/21 Reason for consult: central line Narrative: Asked to placed non tunneled central venous catheter for dialysis. [facility] Past Medical History Medical History Chronic congestive heart failure Review of his EMR last recorded Echocardiogram on 10/2017 showed EF 68% with grade II diastolic dysfunction. Chronic low back pain Chronic venous insufficiency CKD (chronic kidney disease) stage 3, GFR 30-59 ml/min Dyslipidemia Environmental allergies Essential (primary) hypertension GERD without esophagitis Hypothyroidism Lymphedema of both lower extremities Ocular rosacea AMELIA (obstructive sleep apnea) Peripheral polyneuropathy Rosacea Surgical History Surgical History H/O eye surgery (~2005) [id number] [facility] History of cholecystectomy (~2008) History of discectomy 2013 History of foot surgery Left Foot History of rotator cuff surgery bilateral History of thoracic surgery Pericardial effusion s/p pericardial window thought secondary to minoxidil, in 2010 at [facility] Family History Family History Father Cardiovascular disease Grandparent Cancer Mother COPD (chronic obstructive pulmonary disease) Father Family history of cardiovascular disease Grandparent Family history of malignant neoplasm Social History Social History Smoking packs per day: 1.5 Smoking cigarettes per day: 30.0 Years smoked: 30 Smoking pack-years: 45.00 Smoking status: Former smoker Second hand tobacco smoke exposure: No Alcohol intake: current Alcohol use details: consumes 1 beer daily Substance use: never Substance use type: does not use Gender identity (if verbalized by the patient): Male Spiritual care concerns: No Meds Home Medications and Allergies Home Medications Medication Instructions Recorded Confirmed Type aspirin 81 mg tablet,delayed 81 mg PO DAILY 04/07/19 06/02/21 History release minoxidil 10 mg tablet 10 mg PO DAILY 04/07/19 06/02/21 History omeprazole magnesium 20 mg 20 mg PO DAILY 04/07/19 06/02/21 History tablet,delayed release fluticasone propionate 50 1 spray INTRANASAL DAILY 07/12/20 06/02/21 History mcg/actuation nasal spray,suspension loratadine 10 mg tablet 10 mg PO DAILY 07/12/20 06/02/21 History tolnaftate 1 applic TOPICAL DAILY #45 g 07/29/20 06/02/21 Rx acetaminophen 325 mg capsule 325 mg PO Q6H PRN 04/20/21 06/02/21 History furosemide 40 mg tablet 40 mg PO QID tablet 04/20/21 06/02/21 History gabapentin 300 mg capsule 300 mg PO QID #360 cap 04/20/21 06/02/21 Rx potassium chloride 20 mEq 20 meq PO DAILY 04/20/21 06/02/21 History tablet,extended release(part/cryst) levothyroxine 200 mcg table
--- NOTE | 2021-06-09 12:55 | PC.NURSE ---
To OR via bed.
--- NOTE | 2021-06-09 13:42 | PM.IMPN ---
Progress Note: A&P Assessment and Plan (1) Acute on chronic heart failure: Code(s): I50.9 - Heart failure, unspecified Status: Acute (2) Morbid obesity with BMI of 50.0-59.9, adult: Code(s): E66.01 - Morbid (severe) obesity due to excess calories; Z68.43 - Body mass index [BMI] 50.0-59.9, adult Status: Acute (3) Chronic venous insufficiency: Code(s): I87.2 - Venous insufficiency (chronic) (peripheral) Status: Acute (4) GERD without esophagitis: Code(s): K21.9 - Gastro-esophageal reflux disease without esophagitis Status: Acute (5) Dyslipidemia: Code(s): E78.5 - Hyperlipidemia, unspecified Status: Acute (6) Essential (primary) hypertension: Code(s): I10 - Essential (primary) hypertension Status: Acute (7) Peripheral polyneuropathy: Code(s): G62.9 - Polyneuropathy, unspecified Status: Acute Assessment and Plan: Continue gabapentin (8) AMELIA (obstructive sleep apnea): Code(s): G47.33 - Obstructive sleep apnea (adult) (pediatric) Status: Acute Additional Plan 71-year-old male with past medical history significant for obesity, pericardial window, hypothyroidism, congestive heart failure, chronic low back pain, chronic venous insufficiency, presented with worsening SOB, increased abdominal girth, B/L leg Swelling # Acute Hypoxic Resp Failure: likely 2/2 acute on chronic diastolic HF Has B/l Pleural effusion with leg swelling Also has liver cirrhosis with ascites Appreciate cardiology help c/w O2 support Strict I/o's Daily weight Keep K>4, mag>2 Status post right-sided thoracentesis for pleural effusion c/w Azithromycin+Doxycycline for now, likely for 5 days, no consolidation on imaging other than atelectasis this has been discontinued and switched to vancomycin. Pleural fluid culture came back positive for Staph aureus little be identified further. Started on vancomycin 3 stents 9 stents 2021 which will be continued. Recheck chest x-ray with worsening small pleural effusion. Will repeat retap if possible and sent for culture. Some of them could be related to hypovolemia from his underlying congestive heart failure and renal failure. If the culture still persistently comes up positive for Staph aureus he may need drainage with chest tube # bilateral pleural effusion right left Likely due to CHF/cirrhosis Status post thoracentesis with culture being positive for Staph aureus suggestive of parapneumonic effusion. Vancomycin as ordered # JENA on CKD Stage 3A: Appreciate renal help management per renal Avoid nephrotoxins c/w flomax for urinary retention Creatinine continues to go up. Was given a trial of IV fluid 06/06/[address] on 06/04/2021 possibility of contrast nephropathy Creatinine continues to worsen. Poor urine output hypervolemic on examination. Diuretics has been restarted by Nephrology. Continue to monitor renal function Discussed with renal he might be needing dialysis # New Onset of Afibb: Rate controlled On metoprolol to 50 mg BID resume eliquis # Chronic venous insufficiency: Apply Jayesh wraps for now Qshift # Fever: Resolved Leucocytosis resolved Will monitor # UTI with Enterococcus. Continue vancomycin. 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 Dull achy type. Denies any associated symptoms nonradiating. No fever chills. Shortness of breath about the same. Swelling in the legs and abdomen persist does not feel whole lot better since admission 06/08/2021 no overnight events feels about the same. Pleural fluid culture positive for Staph aureus. Remains afebrile. Renal ultrasound this morning is negative for hydronephrosis. Making poor
--- NOTE | 2021-06-09 13:50 | PCOTNOTE ---
Attempted to see patient this pm, however patient off floor for procedure at this time.
--- NOTE | 2021-06-09 13:52 | WPDHPUPDATE1 ---
History and Physical Update Update Date/Time: 06/09/21 13:52 History and Physical has been reviewed, including an updated exam of the patient. There are NO changes in the patient's condition. Risks, benefits, and alternatives have been discussed and questions answered. Patient agrees to proceed with procedure.
--- NOTE | 2021-06-09 13:52 | WPDANESEPP ---
Anes - Eval Pre Procedure Procedure: Operation Date: 06/09/21 14:20 Proposed Procedures p Placement Young Central Venous Catheter - Bhaskar Cuenca MD Date/Time: 06/09/21 13:52 Pre Op Diagnosis: CHF exacerbation Patient Data Age: 71 Gender: M Height: 1.85 m Weight: 183.3 kg Last Vital Signs Temp 36.3 C L 06/09/21 13:39 Pulse 124 H 06/09/21 13:39 Resp 20 06/09/21 13:39 BP 126/63 06/09/21 13:39 Pulse Ox 97 06/09/21 13:39 Allergies Allergy/AdvReac Type Severity Reaction Status Date / Time Sulfa (Sulfonamide Allergy Mild Rash Verified 04/20/21 13:08 Antibiotics) Penicillins Allergy Unknown SWELLING Verified 04/20/21 13:08 codeine AdvReac Mild N/V Verified 04/20/21 13:08 hydrocodone AdvReac Mild N/V Verified 04/20/21 13:08 tramadol AdvReac Mild Nausea Verified 04/20/21 13:08 Home Medications Medication Instructions Recorded Confirmed Type aspirin 81 mg tablet,delayed 81 mg PO DAILY 04/07/19 06/02/21 History release minoxidil 10 mg tablet 10 mg PO DAILY 04/07/19 06/02/21 History omeprazole magnesium 20 mg 20 mg PO DAILY 04/07/19 06/02/21 History tablet,delayed release fluticasone propionate 50 1 spray INTRANASAL DAILY 07/12/20 06/02/21 History mcg/actuation nasal spray,suspension loratadine 10 mg tablet 10 mg PO DAILY 07/12/20 06/02/21 History tolnaftate 1 applic TOPICAL DAILY #45 g 07/29/20 06/02/21 Rx acetaminophen 325 mg capsule 325 mg PO Q6H PRN 04/20/21 06/02/21 History furosemide 40 mg tablet 40 mg PO QID tablet 04/20/21 06/02/21 History gabapentin 300 mg capsule 300 mg PO QID #360 cap 04/20/21 06/02/21 Rx potassium chloride 20 mEq 20 meq PO DAILY 04/20/21 06/02/21 History tablet,extended release(part/cryst) levothyroxine 200 mcg tablet 225 mcg PO QAM tablet 04/21/21 06/09/21 History polyethylene glycol 3350 [Miralax] 17 g PO PRN 06/02/21 06/02/21 History psyllium [Metamucil] 1 packet PO PRN PRN 06/02/21 06/06/21 History levothyroxine 225 mcg PO QAM 06/09/21 06/09/21 History Laboratory Tests 06/07/21 06/09/21 06/09/21 10:52 05:33 05:33 WBC 7.2 K/mm3 K/mm3 (4.5-10.0) RBC 4.13 M/mm3 L M/mm3 (4.6-6.20) Hgb 10.8 g/dL L g/dL (14.0-18.0) Hct 37.6 % L % (42.0-52.0) MCV 91.0 fl fl (80-100) MCH 26.2 pg pg (26-34) MCHC 28.7 g/dl L g/dl (32-36) RDW 16.0 % H % (11.5-14.5) Plt Count 301 k/mm3 k/mm3 (150-375) MPV 11.1 fl H fl (7.4-10.4) Immature Gran % (Auto) 0.6 % H % (0-0.5) Neut % (Auto) 68.3 % % (45.5-73.1) Lymph % (Auto) 11.7 % L % (18.3-44.2) [place] % (Auto) 12.2 % H % (2.6-8.5) Eos % (Auto) 5.9 % H % (0-4.4) Baso % (Auto) 1.3 % H % (0.2-1.2) Lymph # (Auto) 0.84 K/mm3 L K/mm3 (0.9-3.2) [place] # (Auto) 0.9 K/mm3 H K/mm3 (0.1-0.6) Eos # (Auto) 0.4 K/mm3 H K/mm3 (0-0.3) Baso # (Auto) 0.1 K/mm3 K/mm3 (0.0-0.1) Abs Immat Gran (auto) 0.04 K/mm3 H K/mm3 (0.00-0.031) Absolute Neuts (auto) 4.9 K/mm3 K/mm3 (1.3-6.7) Absolute Nucleated RBC 0.0 K/mm3 K/mm3 (0.0-0.012) Nucleated RBC % 0.0 % % (0.0-0.2) Sodium 134 mmol/L L mmol/L (137-145) Potassium 4.3 mmol/L mmol/L (3.4-5.0) Chloride 97 mmol/L L mmol/L (98-107) Carbon Dioxide 30 mmol/L mmol/L (22-30) Anion Gap 7 mmol/L L mmol/L (8-16) BUN 46 mg/dL H mg/dL (9-20) Creatinine 3.10 mg/dL H mg/dL (0.7-1.3) Estim Creat Clear Calc 34 ml/min ml/min Estimated GFR 20 L (59 - ) Glucose 88 mg/dL mg/dL (65-110) Calcium 8.2 mg/dL L mg/dL (8.4-10.2) Phosphorus 5.4 mg/dL H mg/dL (2.5-4.5) Magnesium 2.4 mg/dL H mg/dL (1.6-2.3) Total Bilirubin 0.6 mg/dL mg/dL (0.2-1.3) AST 27 U/L U/L (17-59)
--- NOTE | 2021-06-09 14:10 | WPDANESEFPP ---
Anes - Eval Final PreProcedure Day of Procedure 06/09/21 14:10 Patient weight: super morbidly obese Heart: regular rate and rhythm Lungs: clear to auscultation and normal air movement Airway: Mallampati scale class II Neurological: alert and oriented Last oral intake: >/= 8 hours ASA classification: IV Emergent: no Anesthetic plan: proceed Anesthesia type and monitoring: monitored anesthesia care Results Review: All pre-operative results and documents have been reviewed as part of the pre-operative evaluation. Informed Consent: The patient's anesthetic plan and its attendant risks and benefits were discussed with the patient/family/POA. Questions were solicited and answers provided to the satisfaction of the patient/family/POA.
[2021-06-09] MEDS: LIDO 1%/EPINEPHRINE 1:100,000 50 ML VIAL 20 ML INFILTRATE (14:51)
[2021-06-09] MEDS: HEPARIN SODIUM, PORCINE 10,000 UNITS/10 ML VIAL 10000 UNITS IV PUSH (14:52)
[2021-06-09] MEDS: HEPARIN SODIUM 5,000 UNITS/ML VIAL 5000 UNITS IRRIGATION (14:53)
--- NOTE | 2021-06-09 15:19 | W.PM.PROC2 ---
Procedure Note - Detailed Date of Procedure 06/09/21 Pre-op Diagnosis Acute kidney failure, inadequate venous access Post-op Diagnosis Same Procedure Performed Attempted placement right internal jugular central venous catheter, placement right subclavian central venous catheter for dialysis under fluoroscopy Surgeon Bhaskar Cuenca MD Health And Wellness Director Jose CHRISTIANSON Anesthesia MAC and Local (1% lidocaine with epinephrine) Indications Patient is a 71-year-old man who has chronic kidney disease but presented now with acute kidney failure. He also has CHF as a result. He has requested to have a central venous catheter placed for acute dialysis and is taken to surgery for this procedure. Findings Unable to pass guidewire despite several right IJ punctures. Right subclavian catheter placed without difficulty. Tip appeared to be at the SVC right atrial junction on fluoroscopy. Description of Procedure The patient was taken to surgery and placed in a supine position. The head was turned slightly to the left. The right neck and right subclavian areas were prepped and draped. Patient was placed in some Trendelenburg, he would not tolerate any significant degree of Trendelenburg. Local anesthetic was infiltrated over the right internal jugular vein. The vein was cannulated but guidewire would not pass. We brought fluoroscopy in and tried to pass the guidewire. It was unsuccessful. We brought the needle out of the vein and held pressure. About 3 more different attempts were made all of which did get venous return but had no ability to pass the guidewire despite these attempts. With the patient anticoagulated on his Xarelto, it was felt best to forego any further attempts at the right IJ. Pressure was held. Local was infiltrated over the right subclavian position. A single puncture was used and the right subclavian vein was cannulated. Fortunately the guidewire passed without difficulty. C-arm fluoroscopy showed the guidewire to be in the distal SVC. Serial dilators were passed over the guidewire under fluoroscopy. A 19.5 cm dual-lumen Young catheter was then passed over the guidewire and the tip into the distal SVC right atrial junction. The guidewire was removed. Both ports aspirated blood and flushed easily with heparin. Final flush was done through each port. The Young catheter was sutured to the skin with 3-0 nylon. A sterile dressing was applied. Patient was awakened and taken to recovery in good condition. Sponge and needle counts were correct x2. Estimated Blood Loss -10 Urine Output 220 Drains No Packing No Pathology None sent Complications No immediate complications Condition Stable Disposition PACU
--- NOTE | 2021-06-09 15:52 | SUR.PHASEI ---
[id number]. PATEL AWARE OF POST PROCEDURE CXR AND STATES OKAY TO USE CATHETER.
--- NOTE | 2021-06-09 16:18 | PC.NURSE ---
Back from OR via bed.
[2021-06-10] VITALS (30 sets, daily range): BP systolic 116–147; BP diastolic 56–72; PULSE 60–88; RESP 16–18; TEMP 36.2–36.8; O2SAT 94–100
[2021-06-10 06:29] LABS: Basophils Absolute Auto 0.1 K/mm3 (0.0-0.1); Basophils Percent Auto 1.3 % (0.2-1.2); Eosinophils Absolute Auto 0.4 K/mm3 (0-0.3); Eosinophils Percent Auto 5.4 % (0-4.4); Hemoglobin 10.8 g/dL (14.0-18.0); Immature Granulocyte Absolute 0.04 K/mm3 (0.00-0.031); Immature Granulocyte Percent A 0.6 % (0-0.5); Lymphocytes Absolute Auto 0.63 K/mm3 (0.9-3.2); Lymphocytes Percent Auto 8.9 % (18.3-44.2); Mean Corpuscular HGB Conc 29.2 g/dl (32-36); Mean Corpuscular Hemoglobin 26.2 pg (26-34); Mean Corpuscular Volume 89.8 fl (80-100); Mean Platelet Volume 10.9 fl (7.4-10.4); Monocytes Absolute Auto 0.7 K/mm3 (0.1-0.6); Monocytes Percent Auto 9.5 % (2.6-8.5); Neutrophils Absolute Auto 5.3 K/mm3 (1.3-6.7); Neutrophils Percent Auto 74.3 % (45.5-73.1); Platelet Count Result 300 k/mm3 (150-375); Red Blood Count 4.12 M/mm3 (4.6-6.20); White Blood Count 7.1 K/mm3 (4.5-10.0)
[2021-06-10 06:44] LABS: Alanine Aminotransferase 9 U/L (4-50); Albumin Level 3.2 g/dL (3.5-5.1); Alkaline Phosphatase 60 U/L (38-126); Anion Gap 6 mmol/L (8-16); Aspartate Amino Transferase 27 U/L (17-59); Bilirubin,Total 0.8 mg/dL (0.2-1.3); Blood Urea Nitrogen 44 mg/dL (9-20); Calcium 8.2 mg/dL (8.4-10.2); Carbon Dioxide 29 mmol/L (22-30); Chloride 98 mmol/L (98-107); Estimated CRCL calculation 42 ml/min; Estimated Glomerular Filt Rate 24; Glucose 86 mg/dL (65-110); Magnesium 2.3 mg/dL (1.6-2.3); Potassium 4.2 mmol/L (3.4-5.0); Sodium 133 mmol/L (137-145)
[2021-06-10 07:04] LABS: Anisocytosis 1+ (NORMAL); Ovalocytes 1+ (NORMAL); Platelet Estimate Adequate (Adequate)
[2021-06-10] MEDS: LEVOTHYROXINE SODIUM 25 MCG TABLET PO (07:20)
[2021-06-10] MEDS: LEVOTHYROXINE SODIUM 100 MCG TABLET 200 MCG PO (07:20)
[2021-06-10] MEDS: BUMETANIDE INJ 2.5 MG/10 ML VIAL 2 MG IV PUSH ×2 (08:14→17:03)
[2021-06-10] MEDS: GABAPENTIN 300 MG CAPSULE PO ×4 (08:14→21:15)
[2021-06-10] MEDS: SODIUM CHLORIDE 0.9% IV 1,000 ML 100 ML IV CONT (08:15)
[2021-06-10] MEDS: METOPROLOL TARTRATE 50 MG TAB PO ×2 (08:15→21:15)
[2021-06-10] MEDS: LORATADINE 10 MG TABLET PO (08:16)
[2021-06-10] MEDS: PANTOPRAZOLE 40 MG TABLET PO (08:16)
[2021-06-10] MEDS: TAMSULOSIN HCL 0.4 MG CAPSULE PO (08:16)
[2021-06-10] MEDS: LACTIC ACID 12% LOTION 225 BTL 1 APPLIC TOPICAL (08:17)
[2021-06-10] MEDS: TOLNAFTATE 1% POWDER 45 GM BTL 1 APPLIC TOPICAL ×2 (08:17→21:16)
[2021-06-10] MEDS: FLUTICASONE PROPIONATE 0.05% NA SPR 16 GM BTL (*BKC) 1 SPRAY NASAL (08:17)
--- NOTE | 2021-06-10 09:25 | PC.NURSE ---
To xray via bed.
--- NOTE | 2021-06-10 10:18 | PC.NURSE ---
Back from xray via bed and now at dialysis.
--- NOTE | 2021-06-10 10:24 | PCPTNOTE ---
Attempted patient this AM for treatment was taken for dialysis will attempted this afternoon when treatment is done.
--- NOTE | 2021-06-10 10:31 | P.PNNP_ITS ---
Progress Note: A&P Assessment and Plan (1) JENA (acute kidney injury): Code(s): N17.9 - Acute kidney failure, unspecified Status: Acute Assessment and Plan: * multifactorial etiology: * possibly diuretics (which likely worsened his known chronic prerenal azotemia from cardiac and liver disease) * infection (previous elevated WBC + fever; UTI + infected pleural fluid) * relative hypotension (in a patient with difficult to control HTN) * renal venous hypertension * contrast exposure (renal function was already deteriorating prior to dye use) * evaluation to date * urine electrolytes prerenal (likely registration representative of cardiac/liver issues but could represent intravascular volume depletion) * CPK low * urine culture with Enterococcus * pleural fluid with staph * no significant response with trial of IVFs * renal ultrasound without obstruction * no rash but has developed peripheral eosinophilia again. * his creatinine came down a little bit today. This is probably due to resolution of contrast issues. * He still is grossly volume overloaded and is urine output was not all that great. We cannot use a loop diuretic drip on the floor. Continue Bumex as it was. And will take fluid off with dialysis. Hopefully this is only temporary. (2) Stage 3a chronic kidney disease: Code(s): N18.31 - Chronic kidney disease, stage 3a Status: Chronic Assessment and Plan: * baseline creatinine runs ~ 1.4 - 1.7mg/dl in the last few years * due to hypertension and chronic pre renal azotemia due to his poorly functioning heart and possibly new liver disease * may be an element of disease progression due to necessity of diuretic titration/escalation to treat his edema (3) Acute on chronic heart failure: Code(s): I50.9 - Heart failure, unspecified Status: Acute Assessment and Plan: * as noted by fluid retention, weight gain, and shortness of breath * resumed on IV diuretic therapy (was on hold) * Cardiology following * repeat Echo results noted (4) Respiratory failure with hypoxia: Qualifiers: Chronicity: acute Qualified Code(s): J96.01 - Acute respiratory failure with hypoxia Code(s): J96.91 - Respiratory failure, unspecified with hypoxia Status: Acute Assessment and Plan: * multiple issues could be responsible - worsening CHF versus worsening renal dysfunction versus infection/sepsis versus PE... * CTA of chest noted - no PE but pleural effusions present * using BiPAP PRN * s/p thoracentesis (on 06/06/21) with 925cc removed - PD fluid culture with Staph but pH is okay and not many wbcs. contaminant? * getting vancomycin anyway due to urine enterococcus.. * follow respiratory status closely (5) New onset atrial fibrillation: Code(s): I48.91 - Unspecified atrial fibrillation Status: Acute Assessment and Plan: * new finding * partly to blame for decline in status/renal function(?) * rate control strategy (while trying to avoid hypotension) . Heart rate is 60. * on anticoagulation (6) Hypertension: Code(s): I10 - Essential (primary) hypertension Status: Chronic Assessment and Plan: * running a bit lower than baseline * follow trend * I agree with backing off on bp meds. Subjective Date/time seen: 06/10/21 10:31 Interval history: patient is alert. He just had a thoracentesis. He feels okay. Just swollen. Exam Narrative: Andriy
--- NOTE | 2021-06-10 10:31 | PM.PNNEP ---
Progress Note: A&P Assessment and Plan (1) JENA (acute kidney injury): Code(s): N17.9 - Acute kidney failure, unspecified Status: Acute Assessment and Plan: multifactorial etiology: possibly diuretics (which likely worsened his known chronic prerenal azotemia from cardiac and liver disease) infection (previous elevated WBC + fever; UTI + infected pleural fluid) relative hypotension (in a patient with difficult to control HTN) renal venous hypertension contrast exposure (renal function was already deteriorating prior to dye use) evaluation to date urine electrolytes prerenal (likely consumer sales representative of cardiac/liver issues but could represent intravascular volume depletion) CPK low urine culture with Enterococcus pleural fluid with staph no significant response with trial of IVFs renal ultrasound without obstruction no rash but has developed peripheral eosinophilia again. his creatinine came down a little bit today. This is probably due to resolution of contrast issues. He still is grossly volume overloaded and is urine output was not all that great. We cannot use a loop diuretic drip on the floor. Continue Bumex as it was. And will take fluid off with dialysis. Hopefully this is only temporary. (2) Stage 3a chronic kidney disease: Code(s): N18.31 - Chronic kidney disease, stage 3a Status: Chronic Assessment and Plan: baseline creatinine runs ~ 1.4 - 1.7mg/dl in the last few years due to hypertension and chronic pre renal azotemia due to his poorly functioning heart and possibly new liver disease may be an element of disease progression due to necessity of diuretic titration/escalation to treat his edema (3) Acute on chronic heart failure: Code(s): I50.9 - Heart failure, unspecified Status: Acute Assessment and Plan: as noted by fluid retention, weight gain, and shortness of breath resumed on IV diuretic therapy (was on hold) Cardiology following repeat Echo results noted (4) Respiratory failure with hypoxia: Qualifiers: Chronicity: acute Qualified Code(s): J96.01 - Acute respiratory failure with hypoxia Code(s): J96.91 - Respiratory failure, unspecified with hypoxia Status: Acute Assessment and Plan: multiple issues could be responsible - worsening CHF versus worsening renal dysfunction versus infection/sepsis versus PE... CTA of chest noted - no PE but pleural effusions present using BiPAP PRN s/p thoracentesis (on 06/06/21) with 925cc removed - PD fluid culture with Staph but pH is okay and not many wbcs. contaminant? getting vancomycin anyway due to urine enterococcus.. follow respiratory status closely (5) New onset atrial fibrillation: Code(s): I48.91 - Unspecified atrial fibrillation Status: Acute Assessment and Plan: new finding partly to blame for decline in status/renal function(?) rate control strategy (while trying to avoid hypotension) . Heart rate is 60. on anticoagulation (6) Hypertension: Code(s): I10 - Essential (primary) hypertension Status: Chronic Assessment and Plan: running a bit lower than baseline follow trend I agree with backing off on bp meds. Subjective Date/time seen: 06/10/21 10:31 Interval history: patient is alert. He just had a thoracentesis. He feels okay. Just swollen. Exam Narrative: General: WD/WN male in NAD Heart: normal S1 and S2; no rub or gallop Lungs: decreased at base with some bibasilar crackles Abdomen: BS+ nontender Extremities: 2+ edema bilaterally Skin: chronic skin changes noted Objective Data Vital Signs Vital Signs: Vital Signs - 24 hr 06/09/21 12:00 06/09/21 12:15 06/09/21 13:39 Temperature 36.3 C L Pulse Rate 70 61 124 H Respiratory Rate 22 H 20 Blood Pressure 128/71 126/63 Pulse Oximetry 96 97 06/09/21 15:19 06/09/21 15:30 06/09/21 1
[2021-06-10 10:37] LABS: pH Pleural Fluid 7.391 (7.210-7.500)
[2021-06-10 11:20] LABS: Appearance Pleural Fluid Clear (Clear); Color Pleural Fluid Yellow (Colorless); Lymphocytes Pleural Fluid 44 %; Mesothelial Cells Pleural Flui 31 %; Neutrophils Pleural Fluid 25 % (0-25); Nucleated Cell Pleural Fluid 998 /uL (0-1000); Pleural fluid source Pleural fluid; RBC Pleural Fluid 697 /uL (0-0)
--- NOTE | 2021-06-10 11:31 | PCOTNOTE ---
Attempted to see pt for occupational therapy tx, however, pt was unavailable due to having dialysis at this time. Will continue per poc duration/frequency tomorrow.
[2021-06-10 11:46] LABS: Vancomycin Trough 19.2 ug/mL (10.0-20.0)
--- NOTE | 2021-06-10 13:30 | PC.NURSE ---
Back from dialysis via bed.
[2021-06-10] MEDS: ACETAMINOPHEN 325 MG TABLET PO (13:46)
[2021-06-10] MEDS: ASPIRIN 81 MG ENTERIC TABLET PO (13:47)
--- NOTE | 2021-06-10 13:49 | PM.IMPN ---
Progress Note: A&P Assessment and Plan (1) Acute on chronic heart failure: Code(s): I50.9 - Heart failure, unspecified Status: Acute (2) Morbid obesity with BMI of 50.0-59.9, adult: Code(s): E66.01 - Morbid (severe) obesity due to excess calories; Z68.43 - Body mass index [BMI] 50.0-59.9, adult Status: Acute (3) Chronic venous insufficiency: Code(s): I87.2 - Venous insufficiency (chronic) (peripheral) Status: Acute (4) GERD without esophagitis: Code(s): K21.9 - Gastro-esophageal reflux disease without esophagitis Status: Acute (5) Dyslipidemia: Code(s): E78.5 - Hyperlipidemia, unspecified Status: Acute (6) Essential (primary) hypertension: Code(s): I10 - Essential (primary) hypertension Status: Acute (7) Peripheral polyneuropathy: Code(s): G62.9 - Polyneuropathy, unspecified Status: Acute Assessment and Plan: Continue gabapentin (8) AMELIA (obstructive sleep apnea): Code(s): G47.33 - Obstructive sleep apnea (adult) (pediatric) Status: Acute Additional Plan 71-year-old male with past medical history significant for obesity, pericardial window, hypothyroidism, congestive heart failure, chronic low back pain, chronic venous insufficiency, presented with worsening SOB, increased abdominal girth, B/L leg Swelling # Acute Hypoxic Resp Failure: likely 2/2 acute on chronic diastolic HF Has B/l Pleural effusion with leg swelling Also has liver cirrhosis with ascites Appreciate cardiology help c/w O2 support Strict I/o's Daily weight Keep K>4, mag>2 Status post right-sided thoracentesis for pleural effusion c/w Azithromycin+Doxycycline for now, likely for 5 days, no consolidation on imaging other than atelectasis this has been discontinued and switched to vancomycin. Pleural fluid culture came back positive for Staph aureus which is identified as MSSA. Started on vancomycin since 06/07/2021 which will be continued. will switch to with cefazolin. Recheck chest x-ray with worsening small pleural effusion. Re thoracentesis done today 06/10/2021 pleural fluid analysis does suggest exudative effusion, with RBC and wbc. will await culture report. Some of this pleural effusion could be related to hypervolemia from his underlying congestive heart failure and renal failure. If the culture still persistently comes up positive for Staph aureus he may need drainage with chest tube Continue to monitor clinically and repeat x-rays now since he started on dialysis # bilateral pleural effusion right left Likely due to CHF/cirrhosis Status post thoracentesis with culture being positive for Staph aureus suggestive of parapneumonic effusion. Vancomycin as ordered # JENA on CKD Stage 3A: Appreciate renal help management per renal Avoid nephrotoxins c/w flomax for urinary retention Creatinine continues to go up. Was given a trial of IV fluid 06/06/[address] on 06/04/2021 possibility of contrast nephropathy Creatinine continues to worsen. Poor urine output hypervolemic on examination. Diuretics has been restarted by Nephrology. Continue to monitor renal function He is started on dialysis 06/10/2021 # New Onset of Afibb: Rate controlled On metoprolol to 50 mg BID resume eliquis # Chronic venous insufficiency: Apply Jayesh wraps for now Qshift # Fever: Resolved Leucocytosis resolved Will monitor # UTI with Enterococcus. Continue vancomycin. Allergy to penicillin # Code:Full, needs goals of care discussion # DVT ppx: On Eliquis, # Dispo:pending improvement, poor alf prognosis Subjective Date/time seen: 06/10/21 13:49 Interval history: Reports she started having pain in his left precordium since this morning. Dull achy type. Denies any associated symptoms nonradiating. No fever chills. Shortness of breath about the same. Swelling in the legs and abdomen persist does not feel whole lot better since a
--- NOTE | 2021-06-10 14:07 | PCPTNOTE ---
Patient refused treatment this session. Patient just arrived back from dialysis and multiple procedures this date with reports severe exhaustion with increase pain into port site 08/08, RN aware. Spoke with RN stated patient won't have dialysis tomorrow unless it is an emergency, patient wanting work participate tomorrow after he gets some rest.
--- NOTE | 2021-06-10 18:42 | PM.PNCARD ---
Progress Note: A&P Assessment and Plan (1) Respiratory failure with hypoxia: Qualifiers: Chronicity: acute Qualified Code(s): J96.01 - Acute respiratory failure with hypoxia Code(s): J96.91 - Respiratory failure, unspecified with hypoxia Status: Acute Assessment and Plan: Improving with dialysis. Stable on 2L O2. Remains on IV abx. (2) Acute on chronic heart failure with preserved ejection fraction: Code(s): I50.33 - Acute on chronic diastolic (congestive) heart failure Status: Acute Assessment and Plan: Evidence of right and left heart failure with preserved systolic function. Troponin negative. Echo reveals severe RV enlargement and hypokinesis with moderate pulmonary hypertension. Consider thromboembolic disease, lower extremity DVT negative. If pulmonary embolism identified or suspected continue systemic anticoagulation with alteration as appropriate DVT/PE dosing. Complicated pathophysiology with RV failure with balance of pre load and intravascular volume particularly as true volume status very difficult to ascertain given patient's morbid obesity. Continue Bumex 2mg IV b.i.d. Started on dialysis Monitor renal function very closely. Cr 3.1 today. (3) New onset atrial fibrillation: Code(s): I48.91 - Unspecified atrial fibrillation Status: Acute Assessment and Plan: New onset atrial fibrillation, appears paroxysmal on telemetry along with possible intermittent junctional escape rhythm. Sinus rhythm not readily observed. Heart rate reasonably controlled without AV orquidea blocking agents. As such, I would be cautious with AV orquidea blocking agents given underlying bundle-branch block, intermittent junctional rhythm, and fairly controlled heart rate in atrial fibrillation suggestive of significant underlying conduction system disease. -CHADS2 Vasc score 4. Eliquis 5 mg b.i.d.. On hold for now for oozing around dialysis catheter. -also will hold aspirin because of oozing; not sure if aspirin is indicated in any case. -Continue low dose metoprolol 50 mg BID -Continue telemetry. (4) Acute kidney injury superimposed on chronic kidney disease: Code(s): N17.9 - Acute kidney failure, unspecified; N18.9 - Chronic kidney disease, unspecified Status: Acute Assessment and Plan: Etiology multifactorial. Renal u/s today negative for hydronephrosis. Per nephrology patient has been restarted on diuretics as above. Plan for fluid removal with dialysis. Difficult management. (5) Pulmonary hypertension: Code(s): I27.20 - Pulmonary hypertension, unspecified Status: Acute Assessment and Plan: Consistent with cor pulmonale. Moderate severity RVSP 51 mm Hg similar to prior echo June 2020. RV enlargement hypokinesis also similar. Lower extremity Dopplers negative for DVT. CT negative for PE (6) Essential (primary) hypertension: Code(s): I10 - Essential (primary) hypertension Status: Acute Assessment and Plan: Controlled. (7) AMELIA (obstructive sleep apnea): Code(s): G47.33 - Obstructive sleep apnea (adult) (pediatric) Status: Acute Assessment and Plan: compliance with BiPAP. (8) Lymphedema of both lower extremities: Code(s): I89.0 - Lymphedema, not elsewhere classified Status: Acute Assessment and Plan: Chronic. DVT prophylaxis. Wound care. Jayesh wraps. No DVT on lower extremity venous Dopplers. Subjective Date/time seen: 06/10/21 18:42 Interval history: Cardiology follow up for CHF, Afib 06/09/2021: Feels about the same today, breathing slightly more labored. States he feels like someone is sitting on his chest. No other complaints. Discussed plan of care Date of service 06/10/2021: Had thoracentesis with removal of 1 L fluid from the right lung today. Start dialysis with removal of 400 cc of fluid. Breathing a little better. Telemetry shows pro
[2021-06-11] VITALS (32 sets, daily range): BP systolic 110–133; BP diastolic 57–72; PULSE 60–71; RESP 16–18; TEMP 36.1–37.2; O2SAT 94–98
--- NOTE | 2021-06-11 01:48 | PC.NURSE ---
Daylight Savings Time For Daylight Savings Time Ending in the Fall - Clocks are moved back. For Daylight Savings Time Beginning in the Spring - Clocks are moved ahead. For [facility], the time of change occurs at 0200 hrs. Time is taken from the sql server bi developer. This entry on the patient's chart recognizes the change in time reflected during documentation. Example: 2 entries for vital signs may be charted for 0200 hrs.
[2021-06-11] MEDS: LEVOTHYROXINE SODIUM 100 MCG TABLET 200 MCG PO (05:51)
[2021-06-11] MEDS: LEVOTHYROXINE SODIUM 25 MCG TABLET PO (05:51)
[2021-06-11 06:14] LABS: Basophils Absolute Auto 0.1 K/mm3 (0.0-0.1); Basophils Percent Auto 1.4 % (0.2-1.2); Eosinophils Absolute Auto 0.4 K/mm3 (0-0.3); Eosinophils Percent Auto 6.1 % (0-4.4); Hematocrit 37.6 % (42.0-52.0); Hemoglobin 10.8 g/dL (14.0-18.0); Immature Granulocyte Absolute 0.03 K/mm3 (0.00-0.031); Immature Granulocyte Percent A 0.4 % (0-0.5); Lymphocytes Absolute Auto 0.82 K/mm3 (0.9-3.2); Lymphocytes Percent Auto 11.8 % (18.3-44.2); Mean Corpuscular HGB Conc 28.7 g/dl (32-36); Mean Corpuscular Hemoglobin 26.1 pg (26-34); Mean Corpuscular Volume 90.8 fl (80-100); Mean Platelet Volume 10.5 fl (7.4-10.4); Monocytes Absolute Auto 0.7 K/mm3 (0.1-0.6); Neutrophils Absolute Auto 4.9 K/mm3 (1.3-6.7); Neutrophils Percent Auto 70.3 % (45.5-73.1); Platelet Count Result 302 k/mm3 (150-375); Red Blood Count 4.14 M/mm3 (4.6-6.20); Red Cell Distribution Width 16.3 % (11.5-14.5); White Blood Count 6.9 K/mm3 (4.5-10.0)
[2021-06-11 06:35] LABS: Alanine Aminotransferase 10 U/L (4-50); Albumin Level 3.3 g/dL (3.5-5.1); Alkaline Phosphatase 66 U/L (38-126); Anion Gap 6 mmol/L (8-16); Aspartate Amino Transferase 27 U/L (17-59); Bilirubin,Total 0.8 mg/dL (0.2-1.3); Blood Urea Nitrogen 40 mg/dL (9-20); Calcium 8.4 mg/dL (8.4-10.2); Carbon Dioxide 32 mmol/L (22-30); Chloride 100 mmol/L (98-107); Estimated CRCL calculation 51 ml/min; Estimated Glomerular Filt Rate 31; Glucose 92 mg/dL (65-110); Phosphorus 4.1 mg/dL (2.5-4.5); Potassium 4.1 mmol/L (3.4-5.0); Sodium 138 mmol/L (137-145)
[2021-06-11 06:42] LABS: Anisocytosis 1+ (NORMAL); Ovalocytes 1+ (NORMAL); Platelet Estimate Adequate (Adequate)
[2021-06-11] MEDS: GABAPENTIN 300 MG CAPSULE PO ×4 (09:10→20:01)
[2021-06-11] MEDS: TAMSULOSIN HCL 0.4 MG CAPSULE PO (09:10)
[2021-06-11] MEDS: polyethylene glycoL 3350 17 GM POWD.PACK PO (09:10)
[2021-06-11] MEDS: BUMETANIDE INJ 2.5 MG/10 ML VIAL 2 MG IV PUSH ×2 (09:11→16:54)
[2021-06-11] MEDS: PSYLLIUM POWDER PACKET 1 PACKET PO (09:11)
[2021-06-11] MEDS: METOPROLOL TARTRATE 50 MG TAB PO ×2 (09:11→19:58)
[2021-06-11] MEDS: PANTOPRAZOLE 40 MG TABLET PO (09:11)
[2021-06-11] MEDS: LORATADINE 10 MG TABLET PO (09:12)
[2021-06-11] MEDS: FLUTICASONE PROPIONATE 0.05% NA SPR 16 GM BTL (*BKC) 1 SPRAY NASAL (09:12)
[2021-06-11] MEDS: LACTIC ACID 12% LOTION 225 BTL 1 APPLIC TOPICAL (09:12)
[2021-06-11] MEDS: TOLNAFTATE 1% POWDER 45 GM BTL 1 APPLIC TOPICAL ×2 (09:12→20:01)
--- NOTE | 2021-06-11 10:58 | P.PNNP_ITS ---
Progress Note: A&P Assessment and Plan (1) JENA (acute kidney injury): Code(s): N17.9 - Acute kidney failure, unspecified Status: Acute Assessment and Plan: * multifactorial etiology: * possibly diuretics (which likely worsened his known chronic prerenal azotemia from cardiac and liver disease) * infection (previous elevated WBC + fever; UTI + infected pleural fluid) * relative hypotension (in a patient with difficult to control HTN) * renal venous hypertension * contrast exposure (renal function was already deteriorating prior to dye use) * evaluation to date * urine electrolytes prerenal (likely 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 * his creatinine came down again today. It seems it improved with fluid removal. I suspect he has renal venous hypertension. Will remove more fluid today and then reassess tomorrow. (2) Stage 3a chronic kidney disease: Code(s): N18.31 - Chronic kidney disease, stage 3a Status: Chronic Assessment and Plan: * baseline creatinine runs ~ 1.4 - 1.7mg/dl in the last few years * due to hypertension and chronic pre renal azotemia due to his poorly functioning heart and possibly new liver disease * may be an element of disease progression due to necessity of diuretic titration/escalation to treat his edema (3) Acute on chronic heart failure: Code(s): I50.9 - Heart failure, unspecified Status: Acute Assessment and Plan: * as noted by fluid retention, weight gain, and shortness of breath * Still grossly volume overloaded. * resumed on IV diuretic therapy (was on hold) * Cardiology following * repeat Echo results noted (4) Respiratory failure with hypoxia: Qualifiers: Chronicity: acute Qualified Code(s): J96.01 - Acute respiratory failure with hypoxia Code(s): J96.91 - Respiratory failure, unspecified with hypoxia Status: Acute Assessment and Plan: * multiple issues could be responsible - worsening CHF versus worsening renal dysfunction versus infection/sepsis versus PE... * CTA of chest noted - no PE but pleural effusions present * using BiPAP PRN * s/p thoracentesis (on 06/06/21) with 925cc removed - PD fluid culture with Staph but pH is okay and not many wbcs. contaminant? Repeat thoracentesis done yesterday. Cultures done and are pending. * getting vancomycin * follow respiratory status closely (5) New onset atrial fibrillation: Code(s): I48.91 - Unspecified atrial fibrillation Status: Acute Assessment and Plan: * new finding * partly to blame for decline in status/renal function(?) * rate control strategy (while trying to avoid hypotension) . Heart rate is 60. * on anticoagulation (6) Hypertension: Code(s): I10 - Essential (primary) hypertension Status: Chronic Assessment and Plan: * running a bit lower than baseline * He is on metoprolol only Subjective Date/time seen: 06/11/21 10:58 Interval history: patient is alert. He did well in dialysis yesterday. 4L were removed. He feels better today Exam Narrative: General: WD/WN male in NAD Heart: normal S1 and S2; no rub or gallop Lungs: decreased at base
--- NOTE | 2021-06-11 10:58 | PM.PNNEP ---
Progress Note: A&P Assessment and Plan (1) JENA (acute kidney injury): Code(s): N17.9 - Acute kidney failure, unspecified Status: Acute Assessment and Plan: multifactorial etiology: possibly diuretics (which likely worsened his known chronic prerenal azotemia from cardiac and liver disease) infection (previous elevated WBC + fever; UTI + infected pleural fluid) relative hypotension (in a patient with difficult to control HTN) renal venous hypertension contrast exposure (renal function was already deteriorating prior to dye use) evaluation to date urine electrolytes prerenal (likely guest experience representative of cardiac/liver issues but could represent intravascular volume depletion) CPK low urine culture with Enterococcus pleural fluid with staph no significant response with trial of IVFs renal ultrasound without obstruction no rash but has developed peripheral eosinophilia again. his creatinine came down again today. It seems it improved with fluid removal. I suspect he has renal venous hypertension. Will remove more fluid today and then reassess tomorrow. (2) Stage 3a chronic kidney disease: Code(s): N18.31 - Chronic kidney disease, stage 3a Status: Chronic Assessment and Plan: baseline creatinine runs ~ 1.4 - 1.7mg/dl in the last few years due to hypertension and chronic pre renal azotemia due to his poorly functioning heart and possibly new liver disease may be an element of disease progression due to necessity of diuretic titration/escalation to treat his edema (3) Acute on chronic heart failure: Code(s): I50.9 - Heart failure, unspecified Status: Acute Assessment and Plan: as noted by fluid retention, weight gain, and shortness of breath Still grossly volume overloaded. resumed on IV diuretic therapy (was on hold) Cardiology following repeat Echo results noted (4) Respiratory failure with hypoxia: Qualifiers: Chronicity: acute Qualified Code(s): J96.01 - Acute respiratory failure with hypoxia Code(s): J96.91 - Respiratory failure, unspecified with hypoxia Status: Acute Assessment and Plan: multiple issues could be responsible - worsening CHF versus worsening renal dysfunction versus infection/sepsis versus PE... CTA of chest noted - no PE but pleural effusions present using BiPAP PRN s/p thoracentesis (on 06/06/21) with 925cc removed - PD fluid culture with Staph but pH is okay and not many wbcs. contaminant? Repeat thoracentesis done yesterday. Cultures done and are pending. getting vancomycin follow respiratory status closely (5) New onset atrial fibrillation: Code(s): I48.91 - Unspecified atrial fibrillation Status: Acute Assessment and Plan: new finding partly to blame for decline in status/renal function(?) rate control strategy (while trying to avoid hypotension) . Heart rate is 60. on anticoagulation (6) Hypertension: Code(s): I10 - Essential (primary) hypertension Status: Chronic Assessment and Plan: running a bit lower than baseline He is on metoprolol only Subjective Date/time seen: 06/11/21 10:58 Interval history: patient is alert. He did well in dialysis yesterday. 4L were removed. He feels better today Exam Narrative: General: WD/WN male in NAD Heart: normal S1 and S2; no rub or gallop Lungs: decreased at base with some bibasilar crackles Abdomen: BS+ nontender Extremities: 2+ edema bilaterally Skin: chronic skin changes noted Objective Data Vital Signs Vital Signs: Vital Signs - 24 hr 06/10/21 10:04 06/10/21 10:20 06/10/21 10:25 Temperature 36.8 C Pulse Rate 61 60 63 Respiratory Rate 18 18 Blood Pressure 123/65 127/69 129/71 Pulse Oximetry 96 06/10/21 10:45 06/10/21 10:51 06/10/21 11:00 Temperature 36.8 C Pulse Rate 60 60 62 Respiratory Rate 18 Blood Pressure 120/70 12
[2021-06-11] MEDS: LIDOCAINE HCL 1% LOCAL INJ 20 ML VIAL (12:35)
--- NOTE | 2021-06-11 12:51 | PM.PNGS ---
Progress Note: A&P Assessment and Plan (1) JENA (acute kidney injury): Code(s): N17.9 - Acute kidney failure, unspecified Status: Acute (2) Encounter for central line placement: Code(s): Z45.2 - Encounter for adjustment and management of vascular access device Status: Acute Assessment and Plan: Patient on anticoagulation and had skin bleeder at access site right chest. Controlled with suture. Okay to proceed with dialysis and catheter usage as planned. Subjective Subjective Date/Time Seen: 06/11/21 12:51 Interval history: Randal catheter bleeding at insertion site Exam Chest: Chest palpation & inspection: abnormal inspection of the chest (Insertion site skin bleeding, held pressure but not stopped) Other: Prepped site with Betadine, instilled local anesthetic, 3-0 nylon pursestring suture around exit site resulted in good hemostasis. Re-dressed with stat seal in place. Objective Data Vital Signs Vital Signs: Vital Signs - 24 hr 06/10/21 12:00 06/10/21 12:15 06/10/21 12:30 Temperature Pulse Rate 61 60 60 Respiratory Rate Blood Pressure 120/68 122/64 118/63 Pulse Oximetry 06/10/21 12:45 06/10/21 13:00 06/10/21 13:25 Temperature Pulse Rate 60 64 60 Respiratory Rate Blood Pressure 120/66 131/66 125/68 Pulse Oximetry 06/10/21 13:35 06/10/21 14:00 06/10/21 16:00 Temperature 36.5 C 36.7 C Pulse Rate 62 62 65 Respiratory Rate 16 18 Blood Pressure 123/69 147/59 H Pulse Oximetry 96 06/10/21 20:45 06/10/21 20:54 06/10/21 20:55 Temperature Pulse Rate 63 62 64 Respiratory Rate Blood Pressure Pulse Oximetry 95 98 06/10/21 21:15 06/10/21 21:46 06/11/21 00:00 Temperature 36.6 C Pulse Rate 62 63 64 Respiratory Rate 16 Blood Pressure 121/56 L Pulse Oximetry 96 06/11/21 03:00 06/11/21 04:00 06/11/21 05:46 Temperature 36.1 C L Pulse Rate 66 62 62 Respiratory Rate 16 Blood Pressure 113/57 L Pulse Oximetry 96 96 06/11/21 09:10 06/11/21 09:11 Temperature Pulse Rate 71 Respiratory Rate Blood Pressure Pulse Oximetry 94 Intake/Output Intake/Output: Intake & Output 06/08/21 06/09/21 06/10/21 06/12/21 23:59 23:59 23:59 00:59 Intake Total 1490 1570 934 340 Output Total 400 1260 7140 575 Balance 1090 310 -6206 -235 Meds/Results Medications: Active Medications Generic Name Dose Route Start Last Admin Trade Name Freq PRN Reason Stop Dose Admin Acetaminophen 325 mg 06/02/21 20:23 06/10/21 13:46 Acetaminophen 325 Mg Tablet PO 325 mg Q6H PRN Administration Pain Acetaminophen 162.5 mg 06/09/21 16:17 Acetaminophen Elixir 325 Mg/10.15 Ml Udc PO Q4H PRN Pain Rated 4-6 Apixaban 5 mg 06/03/21 21:00 06/09/21 08:22 Apixaban 5 Mg Tablet PO 5 mg Q12HR ANGELA Administration Bumetanide 2 mg 06/09/21 17:15 06/11/21 09:11 Bumetanide Inj 2.5 Mg/10 Ml Vial IV PUSH 2 mg BID ANGELA Administration Fentanyl Citrate 25 mcg 06/09/21 16:10 Fentanyl Citrate Inj (*Crx) 100 Mcg/2 Ml Vial IV PUSH Q2H PRN Pain Rated 7-10 Fluticasone Propionate 1 spray 06/03/21 09:00 06/11/21 09:12 Fluticasone Propionate 0.05% Na Spr 16 Gm Btl (*Bkc) NASAL 1 spray DAILY ANGELA Administration Gabapentin 300 mg 06/02/21 21:00 06/11/21 09:10 Gabapentin 300 Mg Capsule PO 300 mg QID ANGELA Administration Cefazolin Sodium 1 gm in 50 mls @ 100 mls/hr 06/10/21 14:10 06/11/21 05:17 Ancef 1 Gm/D5w 50 Ml Pm IVPB 100 mls/hr Q8HR ANGELA Administration Vancomycin HCl 2,000 mg in 500 mls @ 250 mls/hr 06/11/21 00:00 06/11/21 05:51 Vancomycin 2,000 Mg/D5w 500 Ml IVPB 250 mls/hr Q36H ANGELA Administration Albumin Human 50 mls @ 999 mls/hr 06/11/21 11:03 Albutein IVPB 06/12/21 11:02 Q10M PRN HYPOTENSION Lactic Acid 1 applic 06/05/21 09:00 06/11/21 09:12 Lactic Acid 12% Lotion 225 Btl TOPICAL 1 applic QAM ANGELA Administration Le
--- NOTE | 2021-06-11 13:00 | PC.NURSE ---
To dialysis via bed.
--- NOTE | 2021-06-11 14:10 | PM.IMPN ---
Progress Note: A&P Assessment and Plan (1) Acute on chronic heart failure: Qualifiers: Heart failure type: unspecified Qualified Code(s): I50.9 - Heart failure, unspecified Code(s): I50.9 - Heart failure, unspecified Status: Acute Assessment and Plan: - Likely causation of pt's acute hypoxic respiratory failure that is improving slowly. - Supplemental oxygen has been decreased to 1.5L. - Continue strict I&O and daily weights. - Status post Right Thoracentesis for pleural effusion. - Pleural fluid positive for MSSA on 06/07/21, continue abx. This is day #5, no sx's of SIRS/Sepsis. - Pleural fluid from 06/10/21 was suggestive of exudative effusion with RBC's and WBC's. Will await culture report. They are pending. - Will continue to monitor with repeat CXR's. (2) Morbid obesity with BMI of 50.0-59.9, adult: Code(s): E66.01 - Morbid (severe) obesity due to excess calories; Z68.43 - Body mass index [BMI] 50.0-59.9, adult Status: Acute Assessment and Plan: - Lifestyle changes as much as possible at discharge. (3) Chronic venous insufficiency: Code(s): I87.2 - Venous insufficiency (chronic) (peripheral) Status: Acute Assessment and Plan: - Jayesh wraps every shift. (4) GERD without esophagitis: Code(s): K21.9 - Gastro-esophageal reflux disease without esophagitis Status: Acute Assessment and Plan: - PPI therapy. (5) Dyslipidemia: Code(s): E78.5 - Hyperlipidemia, unspecified Status: Acute Assessment and Plan: - Heart Healthy Diet (6) Essential (primary) hypertension: Code(s): I10 - Essential (primary) hypertension Status: Acute Assessment and Plan: - Monitor and provide home medications. (7) Peripheral polyneuropathy: Code(s): G62.9 - Polyneuropathy, unspecified Status: Acute Assessment and Plan: - Continue gabapentin (8) AMELIA (obstructive sleep apnea): Code(s): G47.33 - Obstructive sleep apnea (adult) (pediatric) Status: Acute Assessment and Plan: - Home BiPap (9) Acute respiratory failure with hypoxia: Code(s): J96.01 - Acute respiratory failure with hypoxia Status: Acute Assessment and Plan: - Likely secondary to acute on chronic diastolic heart failyure. - As evidenced by bilateral pleural effusion and edama of BLE. - Also has liver cirrhosis and ascites. - Keep K>4 and Mag>2. (10) New onset a-fib: Code(s): I48.91 - Unspecified atrial fibrillation Status: Acute Assessment and Plan: - Eliquis ordered, but currently holding due to bleeding around dialysis site. - Continue Metoprolol. - Good rate control achieved. (11) UTI (urinary tract infection): Qualifiers: Urinary tract infection type: site unspecified Hematuria presence: without hematuria Qualified Code(s): N39.0 - Urinary tract infection, site not specified Code(s): N39.0 - Urinary tract infection, site not specified Status: Acute (12) JENA (acute kidney injury): Code(s): N17.9 - Acute kidney failure, unspecified Status: Acute Assessment and Plan: - Nephrology is managing. Appreciate their continued management. - Pt. receiving dialysis - Continue flomax. Pt. with good urine output. - Creatinine has started to improve. - Monitor labs and VS daily. - Avoid Nephrotoxins as much as possible. Additional Plan - Enterococcus grew out of urine culture. - Continue Vancomycin as pt. is allergic to PCN's. Time Spent With Patient Time with patient: 25 - 35 minutes Subjective Date/time seen: 06/11/21 5392 This pt. was examined at the bedside in interval assessment. He reports that he is breathing better and that he has less dyspnea since he has started dialysis and also has been diuresed and underwent Thoracentesis. 4L were removed during his dialysis and he also had 1L removed from his Thoracentesis. His oxygen requi
--- NOTE | 2021-06-11 18:20 | PM.PNCARD ---
Progress Note: A&P Assessment and Plan (1) Respiratory failure with hypoxia: Qualifiers: Chronicity: acute Qualified Code(s): J96.01 - Acute respiratory failure with hypoxia Code(s): J96.91 - Respiratory failure, unspecified with hypoxia Status: Acute Assessment and Plan: Improving with dialysis. Stable on 2L O2. Remains on IV abx. (2) Acute on chronic heart failure with preserved ejection fraction: Code(s): I50.33 - Acute on chronic diastolic (congestive) heart failure Status: Acute Assessment and Plan: Acute right and left heart failure with preserved systolic function. Echo reveals severe RV enlargement and hypokinesis with moderate pulmonary hypertension. CTA was negative for pulmonary embolus. Continue Bumex 2mg IV b.i.d. HTN controlled Pt glad he was started on dialysis this admission; feeling better. CHF improving. (3) New onset atrial fibrillation: Code(s): I48.91 - Unspecified atrial fibrillation Status: Acute Assessment and Plan: New onset atrial fibrillation, appears paroxysmal on telemetry along with possible intermittent junctional escape rhythm. Heart rate reasonably controlled with metoprolol 50 mg BID. Be cautious with AV orquidea blocking agents given underlying bundle-branch block, intermittent junctional rhythm, and fairly controlled heart rate in atrial fibrillation suggestive of significant underlying conduction system disease. -CHADS2 Vasc score 4. Eliquis 5 mg b.i.d.. On hold for now for oozing around dialysis catheter. -also will holding aspirin because of oozing; not sure if aspirin is indicated in any case. -Continue low dose metoprolol 50 mg BID -Continue telemetry. (4) Acute kidney injury superimposed on chronic kidney disease: Code(s): N17.9 - Acute kidney failure, unspecified; N18.9 - Chronic kidney disease, unspecified Status: Acute Assessment and Plan: Started on hemodialysis this admission. (5) Pulmonary hypertension: Code(s): I27.20 - Pulmonary hypertension, unspecified Status: Acute Assessment and Plan: Consistent with cor pulmonale. Moderate severity RVSP 51 mm Hg similar to prior echo June 2020. RV enlargement hypokinesis also similar. Lower extremity Dopplers negative for DVT. CT negative for PE (6) Essential (primary) hypertension: Code(s): I10 - Essential (primary) hypertension Status: Acute Assessment and Plan: Controlled. (7) AMELIA (obstructive sleep apnea): Code(s): G47.33 - Obstructive sleep apnea (adult) (pediatric) Status: Acute Assessment and Plan: compliance with BiPAP. (8) Lymphedema of both lower extremities: Code(s): I89.0 - Lymphedema, not elsewhere classified Status: Acute Assessment and Plan: Chronic. DVT prophylaxis. Wound care. Jayesh wraps. No DVT on lower extremity venous Dopplers. Subjective Date/time seen: 06/11/21 18:20 Interval history: Cardiology follow up for CHF, Afib 06/09/2021: Feels about the same today, breathing slightly more labored. States he feels like someone is sitting on his chest. No other complaints. Discussed plan of care Date of service 06/10/2021: Had thoracentesis with removal of 1 L fluid from the right lung today. Start dialysis with removal of 4000 cc of fluid. Breathing a little better. Telemetry shows probable AFib versus junctional rhythm rate in the 60s, occasional PVCs versus AFib. Underlying rhythm is a RBBB Date of service 06/11/2021: Feeling pretty good, breathing better, had another dialysis treatment today. Dr. Cuenca put a stitch in the dialysis catheter to reduce the bloody oozing. Patient has not been out of bed today, are tears are uncomfortable for him. Tele - a fib rate 60's. Review of Systems Constitutional: Constitutional: Reports no additional constitutional complaints Eyes: Eyes: Reports no additional eye compla
[2021-06-12] VITALS (14 sets, daily range): BP systolic 129–146; BP diastolic 60–68; PULSE 60–72; RESP 16–18; TEMP 36.6–37.6; O2SAT 90–100
[2021-06-12 05:37] LABS: LDH Pleural Fluid 117 U/L; Total Protein Pleural Fluid <3.0 g/dL
[2021-06-12] MEDS: LEVOTHYROXINE SODIUM 25 MCG TABLET PO (06:03)
[2021-06-12] MEDS: LEVOTHYROXINE SODIUM 100 MCG TABLET 200 MCG PO (06:03)
[2021-06-12 06:13] LABS: Basophils Absolute Auto 0.1 K/mm3 (0.0-0.1); Basophils Percent Auto 1.5 % (0.2-1.2); Eosinophils Absolute Auto 0.4 K/mm3 (0-0.3); Eosinophils Percent Auto 4.6 % (0-4.4); Hematocrit 36.8 % (42.0-52.0); Hemoglobin 10.6 g/dL (14.0-18.0); Immature Granulocyte Absolute 0.04 K/mm3 (0.00-0.031); Immature Granulocyte Percent A 0.5 % (0-0.5); Lymphocytes Percent Auto 11.1 % (18.3-44.2); Mean Corpuscular HGB Conc 28.8 g/dl (32-36); Mean Corpuscular Hemoglobin 25.9 pg (26-34); Mean Corpuscular Volume 89.8 fl (80-100); Mean Platelet Volume 10.5 fl (7.4-10.4); Monocytes Absolute Auto 0.8 K/mm3 (0.1-0.6); Monocytes Percent Auto 9.5 % (2.6-8.5); Neutrophils Absolute Auto 5.9 K/mm3 (1.3-6.7); Neutrophils Percent Auto 72.8 % (45.5-73.1); Platelet Count Result 323 k/mm3 (150-375); Red Cell Distribution Width 16.3 % (11.5-14.5); White Blood Count 8.1 K/mm3 (4.5-10.0)
[2021-06-12 06:24] LABS: Albumin Level 3.3 g/dL (3.5-5.1); Anion Gap 3 mmol/L (8-16); Blood Urea Nitrogen 31 mg/dL (9-20); Calcium 8.3 mg/dL (8.4-10.2); Carbon Dioxide 34 mmol/L (22-30); Chloride 99 mmol/L (98-107); Estimated CRCL calculation 59 ml/min; Estimated Glomerular Filt Rate 37; Glucose 85 mg/dL (65-110); Phosphorus 3.4 mg/dL (2.5-4.5); Potassium 3.7 mmol/L (3.4-5.0); Sodium 136 mmol/L (137-145)
[2021-06-12] MEDS: ACETAMINOPHEN 325 MG TABLET PO ×2 (06:34→20:27)
[2021-06-12 08:02] LABS: Hypochromasia 1+ (NORMAL); Platelet Estimate Adequate (Adequate); Stomatocytes 1+ (NORMAL)
[2021-06-12 08:03] LABS: Ovalocytes 1+ (NORMAL)
--- NOTE | 2021-06-12 09:04 | PM.PNCARD ---
Progress Note: A&P Assessment and Plan (1) Respiratory failure with hypoxia: Qualifiers: Chronicity: acute Qualified Code(s): J96.01 - Acute respiratory failure with hypoxia Code(s): J96.91 - Respiratory failure, unspecified with hypoxia Status: Acute Assessment and Plan: Had been improving with dialysis. He did have some acute shortness of breath last night. Currently stable on his home BiPAP. Will check chest x-ray. (2) Acute on chronic heart failure with preserved ejection fraction: Code(s): I50.33 - Acute on chronic diastolic (congestive) heart failure Status: Acute Assessment and Plan: Acute right and left heart failure with preserved systolic function. Echo reveals severe RV enlargement and hypokinesis with moderate pulmonary hypertension. CTA was negative for pulmonary embolus. Continue Bumex 2mg IV b.i.d. HTN controlled Pt glad he was started on dialysis this admission; feeling better. CHF improving. (3) New onset atrial fibrillation: Code(s): I48.91 - Unspecified atrial fibrillation Status: Acute Assessment and Plan: New onset atrial fibrillation, appears paroxysmal on telemetry along with possible intermittent junctional escape rhythm. Currently in sinus rhythm. Heart rate reasonably controlled with metoprolol 50 mg BID. Be cautious with AV orquidea blocking agents given underlying bundle-branch block, intermittent junctional rhythm, and fairly controlled heart rate in atrial fibrillation suggestive of significant underlying conduction system disease. -CHADS2 Vasc score 4. Eliquis 5 mg b.i.d.. On hold for now for oozing around dialysis catheter. -Continue low dose metoprolol 50 mg BID -Continue telemetry. (4) Acute kidney injury superimposed on chronic kidney disease: Code(s): N17.9 - Acute kidney failure, unspecified; N18.9 - Chronic kidney disease, unspecified Status: Acute Assessment and Plan: Started on hemodialysis this admission. (5) Pulmonary hypertension: Code(s): I27.20 - Pulmonary hypertension, unspecified Status: Acute Assessment and Plan: Consistent with cor pulmonale. Moderate severity RVSP 51 mm Hg similar to prior echo June 2020. RV enlargement hypokinesis also similar. Lower extremity Dopplers negative for DVT. CT negative for PE (6) Essential (primary) hypertension: Code(s): I10 - Essential (primary) hypertension Status: Acute Assessment and Plan: Controlled. (7) AMELIA (obstructive sleep apnea): Code(s): G47.33 - Obstructive sleep apnea (adult) (pediatric) Status: Acute Assessment and Plan: compliance with BiPAP. (8) Lymphedema of both lower extremities: Code(s): I89.0 - Lymphedema, not elsewhere classified Status: Acute Assessment and Plan: Chronic. DVT prophylaxis. Wound care. Jayesh wraps. No DVT on lower extremity venous Dopplers. Subjective Date/time seen: 06/12/21 09:04 Interval history: Cardiology follow up for CHF, Afib 06/09/2021: Feels about the same today, breathing slightly more labored. States he feels like someone is sitting on his chest. No other complaints. Discussed plan of care Date of service 06/10/2021: Had thoracentesis with removal of 1 L fluid from the right lung today. Start dialysis with removal of 4000 cc of fluid. Breathing a little better. Telemetry shows probable AFib versus junctional rhythm rate in the 60s, occasional PVCs versus AFib. Underlying rhythm is a RBBB Date of service 06/11/2021: Feeling pretty good, breathing better, had another dialysis treatment today. Dr. Cuenca put a stitch in the dialysis catheter to reduce the bloody oozing. Patient has not been out of bed today, are tears are uncomfortable for him. Tele - a fib rate 60's. Date of service 06/12/2021: Complaining of shortness of breath this morning. States that last night he became acutely shor
--- NOTE | 2021-06-12 09:24 | P.PNNP_ITS ---
Progress Note: A&P Assessment and Plan (1) JENA (acute kidney injury): Code(s): N17.9 - Acute kidney failure, unspecified Status: Acute Assessment and Plan: * multifactorial etiology: * Most this comes down to the following 2 issues: * renal venous hypertension * contrast exposure (renal function was already deteriorating prior to dye use) * evaluation to date * urine electrolytes prerenal (likely printing supplies sales representative of cardiac/liver issues but could represent intravascular volume depletion) * CPK low * urine culture with Enterococcus * pleural fluid with staph * no significant response with trial of IVFs * renal ultrasound without obstruction * no rash but has developed peripheral eosinophilia again. Significance is unclear. * his creatinine came down again today. The 2 treatments over the weekend w ere fluid removal only. I did not remove any kidney poisons so the improvement in the creatinine is purely due to his kidney function. * So I think removing fluid has improved renal venous hypertension and urine output has picked up dramatically. * He had 6L off on Saturday and 7L off yesterday between urine and dialysis. That he is short of breath. It is unclear what is causing this. His breath sounds are equal so I do not think it is a pneumothorax. He is on apixaban so I doubt if this is a pulmonary embolism. Cardiac issues are possible. ? Infection. Will check a chest x-ray , troponin, and an EKG. (2) Stage 3a chronic kidney disease: Code(s): N18.31 - Chronic kidney disease, stage 3a Status: Chronic Assessment and Plan: * baseline creatinine runs ~ 1.4 - 1.7mg/dl in the last few years * due to hypertension and chronic pre renal azotemia due to his poorly functioning heart and possibly new liver disease * may be an element of disease progression due to necessity of diuretic titration/escalation to treat his edema (3) Acute on chronic heart failure: Qualifiers: Heart failure type: unspecified Qualified Code(s): I50.9 - Heart failure, unspecified Code(s): I50.9 - Heart failure, unspecified Status: Acute Assessment and Plan: * as noted by fluid retention, weight gain, and shortness of breath * fluid overload is improving. * He had lots of fluid off over the weekend between dialysis and urine output. * Will continue the Bumex IV. (4) Respiratory failure with hypoxia: Qualifiers: Chronicity: acute Qualified Code(s): J96.01 - Acute respiratory failure with hypoxia Code(s): J96.91 - Respiratory failure, unspecified with hypoxia Status: Acute Assessment and Plan: * multiple issues could be responsible - worsening CHF versus worsening renal dysfunction versus infection/sepsis versus PE... * CTA of chest noted - no PE but pleural effusions present * using BiPAP PRN * s/p thoracentesis (on 06/06/21) with 925cc removed - PD fluid culture with Staph but pH is okay and not many wbcs. contaminant? Repeat thoracentesis done yesterday. Cultures done and are pending. * getting vancomycin * follow respiratory status closely (5) New onset atrial fibrillation: Code(s): I48.91 - Unspecified atrial fibrillation Status: Acute Assessment and Plan: * new finding * partly to blame for decline in status/renal function(?) * rate control strategy (while trying to avoid hypotension) . Heart rate is 60. * on anticoagulation (6) Hypertension: Code(s): I10 - Essential (primary) hypertension Status: Chronic
--- NOTE | 2021-06-12 09:24 | PM.PNNEP ---
Progress Note: A&P Assessment and Plan (1) JENA (acute kidney injury): Code(s): N17.9 - Acute kidney failure, unspecified Status: Acute Assessment and Plan: multifactorial etiology: Most this comes down to the following 2 issues: renal venous hypertension contrast exposure (renal function was already deteriorating prior to dye use) evaluation to date urine electrolytes prerenal (likely sales training representative of cardiac/liver issues but could represent intravascular volume depletion) CPK low urine culture with Enterococcus pleural fluid with staph no significant response with trial of IVFs renal ultrasound without obstruction no rash but has developed peripheral eosinophilia again. Significance is unclear. his creatinine came down again today. The 2 treatments over the weekend were fluid removal only. I did not remove any kidney poisons so the improvement in the creatinine is purely due to his kidney function. So I think removing fluid has improved renal venous hypertension and urine output has picked up dramatically. He had 6L off on Saturday and 7L off yesterday between urine and dialysis. That he is short of breath. It is unclear what is causing this. His breath sounds are equal so I do not think it is a pneumothorax. He is on apixaban so I doubt if this is a pulmonary embolism. Cardiac issues are possible. ? Infection. Will check a chest x-ray , troponin, and an EKG. (2) Stage 3a chronic kidney disease: Code(s): N18.31 - Chronic kidney disease, stage 3a Status: Chronic Assessment and Plan: baseline creatinine runs ~ 1.4 - 1.7mg/dl in the last few years due to hypertension and chronic pre renal azotemia due to his poorly functioning heart and possibly new liver disease may be an element of disease progression due to necessity of diuretic titration/escalation to treat his edema (3) Acute on chronic heart failure: Qualifiers: Heart failure type: unspecified Qualified Code(s): I50.9 - Heart failure, unspecified Code(s): I50.9 - Heart failure, unspecified Status: Acute Assessment and Plan: as noted by fluid retention, weight gain, and shortness of breath fluid overload is improving. He had lots of fluid off over the weekend between dialysis and urine output. Will continue the Bumex IV. (4) Respiratory failure with hypoxia: Qualifiers: Chronicity: acute Qualified Code(s): J96.01 - Acute respiratory failure with hypoxia Code(s): J96.91 - Respiratory failure, unspecified with hypoxia Status: Acute Assessment and Plan: multiple issues could be responsible - worsening CHF versus worsening renal dysfunction versus infection/sepsis versus PE... CTA of chest noted - no PE but pleural effusions present using BiPAP PRN s/p thoracentesis (on 06/06/21) with 925cc removed - PD fluid culture with Staph but pH is okay and not many wbcs. contaminant? Repeat thoracentesis done yesterday. Cultures done and are pending. getting vancomycin follow respiratory status closely (5) New onset atrial fibrillation: Code(s): I48.91 - Unspecified atrial fibrillation Status: Acute Assessment and Plan: new finding partly to blame for decline in status/renal function(?) rate control strategy (while trying to avoid hypotension) . Heart rate is 60. on anticoagulation (6) Hypertension: Code(s): I10 - Essential (primary) hypertension Status: Chronic Assessment and Plan: running a bit lower than baseline He is on metoprolol only Subjective Date/time seen: 06/12/21 09:24 Interval history: patient is alert. He short of breath today. No fevers or chills. No chest pain. He is better on his CPAP. He did well in dialysis yesterday. 4L were removed. He feels better today Exam Narrative: General: WD/WN male in NAD Heart: normal S1 and
--- NOTE | 2021-06-12 09:28 | ECG_ITS ---
Measurements Intervals [place] Rate: 72 P: TN: 0 QRS: 264 QRSD: 180 T: 69 QT: 479 QTc: 527 Interpretive Statements PROBABLE SINUS RHYTHM WITH FIRST-DEGREE AV BLOCK AND PVCS MARKED RIGHT AXIS DEVIATION [QRS AXIS > 100] RIGHT BUNDLE BRANCH BLOCK [120+ ms QRS DURATION, UPRIGHT V1, 40+ ms S IN I/aVL/V4/V5/V6] COMPARED TO ECG 06/07/2021 11:06:42 NO SIGNIFICANT CHANGE Electronically Signed On 06-12-2021 14:30:16 CDT by Anirudh Wise M.D.
[2021-06-12] MEDS: BUMETANIDE INJ 2.5 MG/10 ML VIAL 2 MG IV PUSH ×2 (09:32→17:08)
[2021-06-12] MEDS: polyethylene glycoL 3350 17 GM POWD.PACK PO (09:33)
[2021-06-12] MEDS: TAMSULOSIN HCL 0.4 MG CAPSULE PO (09:33)
[2021-06-12] MEDS: GABAPENTIN 300 MG CAPSULE PO ×4 (09:33→20:23)
[2021-06-12] MEDS: LORATADINE 10 MG TABLET PO (09:34)
[2021-06-12] MEDS: FLUTICASONE PROPIONATE 0.05% NA SPR 16 GM BTL (*BKC) 1 SPRAY NASAL (09:34)
[2021-06-12] MEDS: PANTOPRAZOLE 40 MG TABLET PO (09:34)
[2021-06-12] MEDS: TOLNAFTATE 1% POWDER 45 GM BTL 1 APPLIC TOPICAL ×2 (09:34→21:40)
[2021-06-12] MEDS: LACTIC ACID 12% LOTION 225 BTL 1 APPLIC TOPICAL (09:34)
[2021-06-12] MEDS: METOPROLOL TARTRATE 50 MG TAB PO ×2 (09:34→20:23)
[2021-06-12 10:10] LABS: Troponin I 0.027 ng/mL (0.000-0.034)
[2021-06-12 11:28] LABS: Vancomycin Trough 18.5 ug/mL (10.0-20.0)
--- NOTE | 2021-06-12 12:11 | PM.IMPN ---
Progress Note: A&P Assessment and Plan (1) Acute on chronic heart failure: Qualifiers: Heart failure type: unspecified Qualified Code(s): I50.9 - Heart failure, unspecified Code(s): I50.9 - Heart failure, unspecified Status: Acute Assessment and Plan: - Likely causation of pt's acute hypoxic respiratory failure that is improving slowly. - Supplemental oxygen has been decreased to 1.5L. - Continue strict I&O and daily weights. - Status post Right Thoracentesis for pleural effusion. - Pleural fluid positive for MSSA on 06/07/21, continue abx. This is day #5, no sx's of SIRS/Sepsis. - Pleural fluid from 06/10/21 was suggestive of exudative effusion with RBC's and WBC's. Will await culture report. They are pending. - Will continue to monitor with repeat CXR's. (2) Morbid obesity with BMI of 50.0-59.9, adult: Code(s): E66.01 - Morbid (severe) obesity due to excess calories; Z68.43 - Body mass index [BMI] 50.0-59.9, adult Status: Acute Assessment and Plan: - Lifestyle changes as much as possible at discharge. (3) Chronic venous insufficiency: Code(s): I87.2 - Venous insufficiency (chronic) (peripheral) Status: Acute Assessment and Plan: - Jayesh wraps every shift. (4) GERD without esophagitis: Code(s): K21.9 - Gastro-esophageal reflux disease without esophagitis Status: Acute Assessment and Plan: - PPI therapy. (5) Dyslipidemia: Code(s): E78.5 - Hyperlipidemia, unspecified Status: Acute Assessment and Plan: - Heart Healthy Diet (6) Essential (primary) hypertension: Code(s): I10 - Essential (primary) hypertension Status: Acute Assessment and Plan: - Monitor and provide home medications. (7) Peripheral polyneuropathy: Code(s): G62.9 - Polyneuropathy, unspecified Status: Acute Assessment and Plan: - Continue gabapentin (8) AMELIA (obstructive sleep apnea): Code(s): G47.33 - Obstructive sleep apnea (adult) (pediatric) Status: Acute Assessment and Plan: - Home BiPap (9) Acute respiratory failure with hypoxia: Code(s): J96.01 - Acute respiratory failure with hypoxia Status: Acute Assessment and Plan: - Likely secondary to acute on chronic diastolic heart failyure. - As evidenced by bilateral pleural effusion and edama of BLE. - Also has liver cirrhosis and ascites. - Keep K>4 and Mag>2. (10) New onset a-fib: Code(s): I48.91 - Unspecified atrial fibrillation Status: Acute Assessment and Plan: - Eliquis ordered, but currently holding due to bleeding around dialysis site. - Continue Metoprolol. - Good rate control achieved. (11) UTI (urinary tract infection): Qualifiers: Urinary tract infection type: site unspecified Hematuria presence: without hematuria Qualified Code(s): N39.0 - Urinary tract infection, site not specified Code(s): N39.0 - Urinary tract infection, site not specified Status: Acute (12) JENA (acute kidney injury): Code(s): N17.9 - Acute kidney failure, unspecified Status: Acute Assessment and Plan: - Nephrology is managing. Appreciate their continued management. - Pt. receiving dialysis - Continue flomax. Pt. with good urine output. - Creatinine has started to improve. - Monitor labs and VS daily. - Avoid Nephrotoxins as much as possible. Subjective Date/time seen: 06/12/21 0930 Pt. was examined at the bedside and appears comfortable, however, he does state he feels more dyspneic today. No fevers, and he is not requiring more oxygen. His CXR shows persistent bilateral interstitial infiltrates which may represent edema or PNA. There are also concern for small pleural effusions and cardiomegaly. Pt. has used his CPAP mask to help oxygenate further. Review of Systems Review of Systems: All systems reviewed & are unremarkable except as noted in HPI and below
--- NOTE | 2021-06-12 12:28 | PHAR ---
06/12/21 [facility] LEVEL CAME BACK AT 18.5 TARGET 10-15. IS ON Q36HR SCHEDULE BUT LEVEL DRAWN WAS LESS THEN 30 HRS FROM LAST DOSE BECAUSE LAST DOSE WAS GIVEN ALMOST 6 HRS LATE. FLOOR HAS ALREADY HUNG 1200 DOSE 06/12 BEFORE LEVEL WAS BACK. PHARMACY WILL RECHECK TROUGH BEFORE NEXT DOSE & DETERMINE APPROPRIATE SCHEDULE THEN.
[2021-06-12 12:54] LABS: Troponin I 0.033 ng/mL (0.000-0.034)
--- NOTE | 2021-06-12 15:41 | PCPTNOTE ---
Patient declined PT this afternoon. Patient states he felt light headed when returning to bed from commode this morning and I just don't feel right. PT will continue to follow per plan of care.
[2021-06-13] VITALS (13 sets, daily range): BP systolic 128–134; BP diastolic 68–69; PULSE 61–78; RESP 16–17; TEMP 36.2–37.5; O2SAT 93–100
[2021-06-13] MEDS: LEVOTHYROXINE SODIUM 100 MCG TABLET 200 MCG PO (05:51)
[2021-06-13] MEDS: LEVOTHYROXINE SODIUM 25 MCG TABLET PO (05:51)
[2021-06-13 06:42] LABS: Albumin Level 3.5 g/dL (3.5-5.1); Anion Gap 9 mmol/L (8-16); Blood Urea Nitrogen 23 mg/dL (9-20); Calcium 8.2 mg/dL (8.4-10.2); Carbon Dioxide 30 mmol/L (22-30); Chloride 99 mmol/L (98-107); Estimated CRCL calculation 80 ml/min; Estimated Glomerular Filt Rate 54; Glucose 74 mg/dL (65-110); Phosphorus 3.3 mg/dL (2.5-4.5); Potassium 3.6 mmol/L (3.4-5.0); Sodium 138 mmol/L (137-145)
--- NOTE | 2021-06-13 08:02 | P.PNNP_ITS ---
Progress Note: A&P Assessment and Plan (1) JENA (acute kidney injury): Code(s): N17.9 - Acute kidney failure, unspecified Status: Acute Assessment and Plan: * multifactorial etiology: * Most this comes down to the following 2 issues: * renal venous hypertension * contrast exposure (renal function was already deteriorating prior to dye use) * evaluation to date * urine electrolytes prerenal (likely insurance claims representative of cardiac/liver issues but could represent intravascular volume depletion) * CPK low * urine culture with Enterococcus * pleural fluid with staph * no significant response with trial of IVFs * renal ultrasound without obstruction * no rash but has developed peripheral eosinophilia again. Significance is unclear. * his creatinine has returned to normal at 1.3 today. * He made 2400cc of urine yesterday. * Will hold off on dialysis today. * Continue diuretics. (2) Stage 3a chronic kidney disease: Code(s): N18.31 - Chronic kidney disease, stage 3a Status: Chronic Assessment and Plan: * baseline creatinine runs ~ 1.4 - 1.7mg/dl in the last few years * due to hypertension and chronic pre renal azotemia due to his poorly functioning heart and possibly new liver disease * may be an element of disease progression due to necessity of diuretic titration/escalation to treat his edema (3) Acute on chronic heart failure: Qualifiers: Heart failure type: unspecified Qualified Code(s): I50.9 - Heart failure, unspecified Code(s): I50.9 - Heart failure, unspecified Status: Acute Assessment and Plan: * as noted by fluid retention, weight gain, and shortness of breath * fluid overload is improving. * He had lots of fluid off over the weekend between dialysis and urine output. * Will continue the Bumex IV. * Chest x-ray still shows infiltrates. Troponins were negative. EKG shows no change. (4) Respiratory failure with hypoxia: Qualifiers: Chronicity: acute Qualified Code(s): J96.01 - Acute respiratory failure with hypoxia Code(s): J96.91 - Respiratory failure, unspecified with hypoxia Status: Acute Assessment and Plan: * multiple issues could be responsible - worsening CHF versus worsening renal dysfunction versus infection/sepsis versus PE... * CTA of chest noted - no PE but pleural effusions present * using BiPAP PRN and every night. * s/p thoracentesis (on 06/06/21) with 925cc removed - PD fluid culture with Staph but pH is okay and not many wbcs. contaminant? Repeat thoracentesis done yesterday. Cultures done and are no growth today * getting vancomycin * follow respiratory status closely (5) New onset atrial fibrillation: Code(s): I48.91 - Unspecified atrial fibrillation Status: Acute Assessment and Plan: * new finding * partly to blame for decline in status/renal function(?) * rate control strategy (while trying to avoid hypotension) . Heart rate is 63. * on anticoagulation (6) Hypertension: Code(s): I10 - Essential (primary) hypertension Status: Chronic Assessment and Plan: * running a bit lower than baseline * He is on metoprolol only Subjective Date/time seen: 06/13/21 08:02 Interval history: patient is alert. Breathing is better. His shortness of breath improved yesterday by mid day. Exam Narrative: General: WD/WN male in NAD Heart: normal S1 and S2; no rub or gallop L
--- NOTE | 2021-06-13 08:02 | PM.PNNEP ---
Progress Note: A&P Assessment and Plan (1) JENA (acute kidney injury): Code(s): N17.9 - Acute kidney failure, unspecified Status: Acute Assessment and Plan: multifactorial etiology: Most this comes down to the following 2 issues: renal venous hypertension contrast exposure (renal function was already deteriorating prior to dye use) evaluation to date urine electrolytes prerenal (likely public health representative of cardiac/liver issues but could represent intravascular volume depletion) CPK low urine culture with Enterococcus pleural fluid with staph no significant response with trial of IVFs renal ultrasound without obstruction no rash but has developed peripheral eosinophilia again. Significance is unclear. his creatinine has returned to normal at 1.3 today. He made 2400cc of urine yesterday. Will hold off on dialysis today. Continue diuretics. (2) Stage 3a chronic kidney disease: Code(s): N18.31 - Chronic kidney disease, stage 3a Status: Chronic Assessment and Plan: baseline creatinine runs ~ 1.4 - 1.7mg/dl in the last few years due to hypertension and chronic pre renal azotemia due to his poorly functioning heart and possibly new liver disease may be an element of disease progression due to necessity of diuretic titration/escalation to treat his edema (3) Acute on chronic heart failure: Qualifiers: Heart failure type: unspecified Qualified Code(s): I50.9 - Heart failure, unspecified Code(s): I50.9 - Heart failure, unspecified Status: Acute Assessment and Plan: as noted by fluid retention, weight gain, and shortness of breath fluid overload is improving. He had lots of fluid off over the weekend between dialysis and urine output. Will continue the Bumex IV. Chest x-ray still shows infiltrates. Troponins were negative. EKG shows no change. (4) Respiratory failure with hypoxia: Qualifiers: Chronicity: acute Qualified Code(s): J96.01 - Acute respiratory failure with hypoxia Code(s): J96.91 - Respiratory failure, unspecified with hypoxia Status: Acute Assessment and Plan: multiple issues could be responsible - worsening CHF versus worsening renal dysfunction versus infection/sepsis versus PE... CTA of chest noted - no PE but pleural effusions present using BiPAP PRN and every night. s/p thoracentesis (on 06/06/21) with 925cc removed - PD fluid culture with Staph but pH is okay and not many wbcs. contaminant? Repeat thoracentesis done yesterday. Cultures done and are no growth today getting vancomycin follow respiratory status closely (5) New onset atrial fibrillation: Code(s): I48.91 - Unspecified atrial fibrillation Status: Acute Assessment and Plan: new finding partly to blame for decline in status/renal function(?) rate control strategy (while trying to avoid hypotension) . Heart rate is 63. on anticoagulation (6) Hypertension: Code(s): I10 - Essential (primary) hypertension Status: Chronic Assessment and Plan: running a bit lower than baseline He is on metoprolol only Subjective Date/time seen: 06/13/21 08:02 Interval history: patient is alert. Breathing is better. His shortness of breath improved yesterday by mid day. Exam Narrative: General: WD/WN male in NAD Heart: normal S1 and S2; no rub or gallop Lungs: fairly clear. Breath sounds are symmetric. Abdomen: BS+ nontender and soft Extremities: 2+ edema bilaterally it seems a little improved right now. Skin: chronic skin changes noted Objective Data Vital Signs Vital Signs: Vital Signs - 24 hr 06/12/21 08:32 06/12/21 12:00 06/12/21 14:00 Temperature 36.6 C Pulse Rate 65 65 Respiratory Rate 18 Blood Pressure 129/60 Pulse Oximetry 94 100 06/12/21 16:00 06/12/21 20:00 06/12/21 20:23 Temperature Pulse Rate 60 66 66 Res
[2021-06-13] MEDS: PANTOPRAZOLE 40 MG TABLET PO (08:53)
[2021-06-13] MEDS: TAMSULOSIN HCL 0.4 MG CAPSULE PO (08:53)
[2021-06-13] MEDS: LORATADINE 10 MG TABLET PO (08:53)
[2021-06-13] MEDS: METOPROLOL TARTRATE 50 MG TAB PO ×2 (08:53→20:48)
[2021-06-13] MEDS: GABAPENTIN 300 MG CAPSULE PO ×4 (08:53→20:48)
[2021-06-13] MEDS: polyethylene glycoL 3350 17 GM POWD.PACK PO (08:54)
[2021-06-13] MEDS: BUMETANIDE INJ 2.5 MG/10 ML VIAL 2 MG IV PUSH ×2 (08:54→16:51)
[2021-06-13] MEDS: PSYLLIUM POWDER PACKET 1 PACKET PO (08:55)
[2021-06-13] MEDS: FLUTICASONE PROPIONATE 0.05% NA SPR 16 GM BTL (*BKC) 1 SPRAY NASAL (08:55)
[2021-06-13] MEDS: LACTIC ACID 12% LOTION 225 BTL 1 APPLIC TOPICAL (08:56)
[2021-06-13] MEDS: TOLNAFTATE 1% POWDER 45 GM BTL 1 APPLIC TOPICAL ×2 (08:56→21:36)
--- NOTE | 2021-06-13 12:54 | PM.PNCARD ---
Progress Note: A&P Assessment and Plan (1) Respiratory failure with hypoxia: Qualifiers: Chronicity: acute Qualified Code(s): J96.01 - Acute respiratory failure with hypoxia Code(s): J96.91 - Respiratory failure, unspecified with hypoxia Status: Acute Assessment and Plan: Had been improving with dialysis. He did have some acute shortness of breath last night. Currently stable on his home BiPAP. Will check chest x-ray. (2) Acute on chronic heart failure with preserved ejection fraction: Code(s): I50.33 - Acute on chronic diastolic (congestive) heart failure Status: Acute Assessment and Plan: Acute right and left heart failure with preserved systolic function. Echo reveals severe RV enlargement and hypokinesis with moderate pulmonary hypertension. CTA was negative for pulmonary embolus. Continue Bumex 2mg IV b.i.d. HTN controlled Pt glad he was started on dialysis this admission; feeling better. CHF improving. (3) New onset atrial fibrillation: Code(s): I48.91 - Unspecified atrial fibrillation Status: Acute Assessment and Plan: New onset atrial fibrillation, appears paroxysmal on telemetry along with possible intermittent junctional escape rhythm. Currently in sinus rhythm. Heart rate reasonably controlled with metoprolol 50 mg BID. Be cautious with AV orquidea blocking agents given underlying bundle-branch block, intermittent junctional rhythm, and fairly controlled heart rate in atrial fibrillation suggestive of significant underlying conduction system disease. -CHADS2 Vasc score 4. Eliquis 5 mg b.i.d. can be restarted at this point - I did not see any new bleeding/oozing around the dialysis catheter today. -Continue metoprolol 50 mg BID -Continue telemetry. (4) Acute kidney injury superimposed on chronic kidney disease: Code(s): N17.9 - Acute kidney failure, unspecified; N18.9 - Chronic kidney disease, unspecified Status: Acute Assessment and Plan: Started on hemodialysis this admission. (5) Pulmonary hypertension: Code(s): I27.20 - Pulmonary hypertension, unspecified Status: Acute Assessment and Plan: Consistent with cor pulmonale. Moderate severity RVSP 51 mm Hg similar to prior echo June 2020. RV enlargement hypokinesis also similar. Lower extremity Dopplers negative for DVT. CT negative for PE (6) Essential (primary) hypertension: Code(s): I10 - Essential (primary) hypertension Status: Acute Assessment and Plan: Controlled. (7) AMELIA (obstructive sleep apnea): Code(s): G47.33 - Obstructive sleep apnea (adult) (pediatric) Status: Acute Assessment and Plan: compliance with BiPAP. (8) Lymphedema of both lower extremities: Code(s): I89.0 - Lymphedema, not elsewhere classified Status: Acute Assessment and Plan: Chronic. DVT prophylaxis. Wound care. Jayesh wraps. No DVT on lower extremity venous Dopplers. Subjective Date/time seen: 06/13/21 12:54 Interval history: Cardiology follow up for CHF, Afib 06/09/2021: Feels about the same today, breathing slightly more labored. States he feels like someone is sitting on his chest. No other complaints. Discussed plan of care Date of service 06/10/2021: Had thoracentesis with removal of 1 L fluid from the right lung today. Start dialysis with removal of 4000 cc of fluid. Breathing a little better. Telemetry shows probable AFib versus junctional rhythm rate in the 60s, occasional PVCs versus AFib. Underlying rhythm is a RBBB Date of service 06/11/2021: Feeling pretty good, breathing better, had another dialysis treatment today. Dr. Cuenca put a stitch in the dialysis catheter to reduce the bloody oozing. Patient has not been out of bed today, are tears are uncomfortable for him. Tele - a fib rate 60's. Date of service 06/12/2021: Complaining of shortness of breath this morning.
--- NOTE | 2021-06-13 16:09 | PM.IMPN ---
Progress Note: A&P Assessment and Plan (1) Acute on chronic heart failure: Qualifiers: Heart failure type: unspecified Qualified Code(s): I50.9 - Heart failure, unspecified Code(s): I50.9 - Heart failure, unspecified Status: Acute Assessment and Plan: - Likely causation of pt's acute hypoxic respiratory failure that is improving slowly. - Supplemental oxygen has been decreased to 1.5L. - Continue strict I&O and daily weights. - Status post Right Thoracentesis for pleural effusion. - Pleural fluid positive for MSSA on 06/07/21, continue abx. This is day #5, no sx's of SIRS/Sepsis. - Pleural fluid from 06/10/21 was suggestive of exudative effusion with RBC's and WBC's. Will await culture report. They are pending. - Will continue to monitor with repeat CXR's. 06/13/2021 interval history: patient is 71 O male presented with acute on chronic kidney disease patient seen by Nephrology patient urine output has improved as well as his urine output patient states is feeling much better not a short of breath, and has been working with physical therapy, patient also has a new onset atrial fibrillation seen by cardiology suspect patient has proximal atrial fibrillation being treated with a metoprolol for rate control and anticoagulated with Eliquis, patient remains clinically stable will continue to monitor. (2) Morbid obesity with BMI of 50.0-59.9, adult: Code(s): E66.01 - Morbid (severe) obesity due to excess calories; Z68.43 - Body mass index [BMI] 50.0-59.9, adult Status: Acute Assessment and Plan: - Lifestyle changes as much as possible at discharge. (3) Chronic venous insufficiency: Code(s): I87.2 - Venous insufficiency (chronic) (peripheral) Status: Acute Assessment and Plan: - Jayesh wraps every shift. (4) GERD without esophagitis: Code(s): K21.9 - Gastro-esophageal reflux disease without esophagitis Status: Acute Assessment and Plan: - PPI therapy. (5) Dyslipidemia: Code(s): E78.5 - Hyperlipidemia, unspecified Status: Acute Assessment and Plan: - Heart Healthy Diet (6) Essential (primary) hypertension: Code(s): I10 - Essential (primary) hypertension Status: Acute Assessment and Plan: - Monitor and provide home medications. (7) Peripheral polyneuropathy: Code(s): G62.9 - Polyneuropathy, unspecified Status: Acute Assessment and Plan: - Continue gabapentin (8) AMELIA (obstructive sleep apnea): Code(s): G47.33 - Obstructive sleep apnea (adult) (pediatric) Status: Acute Assessment and Plan: - Home BiPap (9) Acute respiratory failure with hypoxia: Code(s): J96.01 - Acute respiratory failure with hypoxia Status: Acute Assessment and Plan: - Likely secondary to acute on chronic diastolic heart failyure. - As evidenced by bilateral pleural effusion and edama of BLE. - Also has liver cirrhosis and ascites. - Keep K>4 and Mag>2. (10) New onset a-fib: Code(s): I48.91 - Unspecified atrial fibrillation Status: Acute Assessment and Plan: - Eliquis ordered, but currently holding due to bleeding around dialysis site. - Continue Metoprolol. - Good rate control achieved. (11) UTI (urinary tract infection): Qualifiers: Urinary tract infection type: site unspecified Hematuria presence: without hematuria Qualified Code(s): N39.0 - Urinary tract infection, site not specified Code(s): N39.0 - Urinary tract infection, site not specified Status: Acute (12) JENA (acute kidney injury): Code(s): N17.9 - Acute kidney failure, unspecified Status: Acute Assessment and Plan: - Nephrology is managing. Appreciate their continued management. - Pt. receiving dialysis - Continue flomax. Pt. with good urine output. - Creatinine has started to improve. - Monitor labs and VS daily. - Avoid Nephrotoxins as much a
[2021-06-13 18:54] LABS: Glucose Pleural Fluid 86 mg/dL; LDH Pleural Fluid 212 U/L; Total Protein Pleural Fluid <3.0 g/dL
[2021-06-13] MEDS: APIXABAN 5 MG TABLET PO (21:36)
[2021-06-13 23:48] LABS: Vancomycin Trough 15.9 ug/mL (10.0-20.0)
[2021-06-14] VITALS (14 sets, daily range): BP systolic 120–152; BP diastolic 62–77; PULSE 63–88; RESP 16–17; TEMP 36.4–37.5; O2SAT 93–100
[2021-06-14] MEDS: LEVOTHYROXINE SODIUM 25 MCG TABLET PO (06:02)
[2021-06-14] MEDS: LEVOTHYROXINE SODIUM 100 MCG TABLET 200 MCG PO (06:02)
[2021-06-14 06:16] LABS: Hemoglobin 11.1 g/dL (14.0-18.0); Mean Corpuscular HGB Conc 28.5 g/dl (32-36); Mean Corpuscular Hemoglobin 25.9 pg (26-34); Mean Corpuscular Volume 90.9 fl (80-100); Mean Platelet Volume 10.5 fl (7.4-10.4); Platelet Count Result 341 k/mm3 (150-375); Red Blood Count 4.29 M/mm3 (4.6-6.20); Red Cell Distribution Width 16.3 % (11.5-14.5); White Blood Count 7.6 K/mm3 (4.5-10.0)
[2021-06-14 06:32] LABS: Albumin Level 3.4 g/dL (3.5-5.1); Anion Gap 5 mmol/L (8-16); Blood Urea Nitrogen 16 mg/dL (9-20); Calcium 8.1 mg/dL (8.4-10.2); Carbon Dioxide 39 mmol/L (22-30); Chloride 97 mmol/L (98-107); Estimated CRCL calculation 86 ml/min; Estimated Glomerular Filt Rate 60; Glucose 85 mg/dL (65-110); Phosphorus 2.9 mg/dL (2.5-4.5); Potassium 3.1 mmol/L (3.4-5.0); Sodium 141 mmol/L (137-145)
[2021-06-14] MEDS: METOPROLOL TARTRATE 50 MG TAB PO ×2 (08:01→20:43)
[2021-06-14] MEDS: GABAPENTIN 300 MG CAPSULE PO ×4 (08:01→20:43)
[2021-06-14] MEDS: TAMSULOSIN HCL 0.4 MG CAPSULE PO (08:01)
[2021-06-14] MEDS: APIXABAN 5 MG TABLET PO ×2 (08:01→20:43)
[2021-06-14] MEDS: BUMETANIDE INJ 2.5 MG/10 ML VIAL 2 MG IV PUSH ×2 (08:02→16:51)
[2021-06-14] MEDS: LORATADINE 10 MG TABLET PO (08:02)
[2021-06-14] MEDS: PANTOPRAZOLE 40 MG TABLET PO (08:02)
[2021-06-14] MEDS: FLUTICASONE PROPIONATE 0.05% NA SPR 16 GM BTL (*BKC) 1 SPRAY NASAL (08:03)
[2021-06-14] MEDS: LACTIC ACID 12% LOTION 225 BTL 1 APPLIC TOPICAL (08:03)
[2021-06-14] MEDS: TOLNAFTATE 1% POWDER 45 GM BTL 1 APPLIC TOPICAL ×2 (08:03→20:43)
[2021-06-14] MEDS: ACETAMINOPHEN 325 MG TABLET PO (08:15)
--- NOTE | 2021-06-14 12:55 | P.PNNP_ITS ---
Progress Note: A&P Assessment and Plan (1) JENA (acute kidney injury): Code(s): N17.9 - Acute kidney failure, unspecified Status: Acute Assessment and Plan: * multifactorial etiology: * Most this comes down to the following 2 issues: * renal venous hypertension * contrast exposure (renal function was already deteriorating prior to dye use) * his creatinine has returned to normal at 1.2 today. * He made 2300cc of urine yesterday. * Will hold off on dialysis today. * Continue diuretics. * if he continues do this well I think we can pull out the catheter tomorrow. (2) Stage 3a chronic kidney disease: Code(s): N18.31 - Chronic kidney disease, stage 3a Status: Chronic Assessment and Plan: * baseline creatinine runs ~ 1.4 - 1.7mg/dl in the last few years * due to hypertension and chronic pre renal azotemia due to his poorly functioning heart and possibly new liver disease * may be an element of disease progression due to necessity of diuretic titration/escalation to treat his edema (3) Acute on chronic heart failure: Qualifiers: Heart failure type: unspecified Qualified Code(s): I50.9 - Heart failure, unspecified Code(s): I50.9 - Heart failure, unspecified Status: Acute Assessment and Plan: * as noted by fluid retention, weight gain, and shortness of breath * fluid overload is improving. * He had lots of fluid off over the weekend between dialysis and urine output. * Will continue the Bumex 2 mg IV twice a day. (4) Respiratory failure with hypoxia: Qualifiers: Chronicity: acute Qualified Code(s): J96.01 - Acute respiratory failure with hypoxia Code(s): J96.91 - Respiratory failure, unspecified with hypoxia Status: Acute Assessment and Plan: * multiple issues could be responsible - worsening CHF versus worsening renal dysfunction versus infection/sepsis versus PE... * CTA of chest noted - no PE but pleural effusions present * using BiPAP PRN and every night. * s/p thoracentesis (on 06/06/21) with 925cc removed - PD fluid culture with Staph but pH is okay and not many wbcs. contaminant? Repeat thoracentesis done yesterday. Cultures done and are no growth today * getting vancomycin (5) New onset atrial fibrillation: Code(s): I48.91 - Unspecified atrial fibrillation Status: Acute Assessment and Plan: * new finding * partly to blame for decline in status/renal function(?) * heart rate 94 * on anticoagulation (6) Hypertension: Code(s): I10 - Essential (primary) hypertension Status: Chronic Assessment and Plan: * systolic running 120-150 * He is on metoprolol only Subjective Date/time seen: 06/14/21 12:55 Interval history: patient is alert. Still swollen but less so. Urine output is good. Exam Narrative: General: WD/WN male in NAD Heart: normal S1 and S2; no rub Lungs: fairly clear. Breath sounds are symmetric. Abdomen: BS+ nontender and soft Extremities: 2+ edema bilaterally it seems a little improved right now. Skin: Chronic venous stasis dermatitis Objective Data Vital Signs Vital Signs: Vital Signs - 24 hr 06/13/21 14:00 06/13/21 14:25 06/13/21 16:00 Temperature 36.2 C L Pulse Rate 62 64 Respiratory Rate 17 Blood Pressure 134/68 Pulse Oximetry 100 95 06/13
--- NOTE | 2021-06-14 12:55 | PM.PNNEP ---
Progress Note: A&P Assessment and Plan (1) JENA (acute kidney injury): Code(s): N17.9 - Acute kidney failure, unspecified Status: Acute Assessment and Plan: multifactorial etiology: Most this comes down to the following 2 issues: renal venous hypertension contrast exposure (renal function was already deteriorating prior to dye use) his creatinine has returned to normal at 1.2 today. He made 2300cc of urine yesterday. Will hold off on dialysis today. Continue diuretics. if he continues do this well I think we can pull out the catheter tomorrow. (2) Stage 3a chronic kidney disease: Code(s): N18.31 - Chronic kidney disease, stage 3a Status: Chronic Assessment and Plan: baseline creatinine runs ~ 1.4 - 1.7mg/dl in the last few years due to hypertension and chronic pre renal azotemia due to his poorly functioning heart and possibly new liver disease may be an element of disease progression due to necessity of diuretic titration/escalation to treat his edema (3) Acute on chronic heart failure: Qualifiers: Heart failure type: unspecified Qualified Code(s): I50.9 - Heart failure, unspecified Code(s): I50.9 - Heart failure, unspecified Status: Acute Assessment and Plan: as noted by fluid retention, weight gain, and shortness of breath fluid overload is improving. He had lots of fluid off over the weekend between dialysis and urine output. Will continue the Bumex 2 mg IV twice a day. (4) Respiratory failure with hypoxia: Qualifiers: Chronicity: acute Qualified Code(s): J96.01 - Acute respiratory failure with hypoxia Code(s): J96.91 - Respiratory failure, unspecified with hypoxia Status: Acute Assessment and Plan: multiple issues could be responsible - worsening CHF versus worsening renal dysfunction versus infection/sepsis versus PE... CTA of chest noted - no PE but pleural effusions present using BiPAP PRN and every night. s/p thoracentesis (on 06/06/21) with 925cc removed - PD fluid culture with Staph but pH is okay and not many wbcs. contaminant? Repeat thoracentesis done yesterday. Cultures done and are no growth today getting vancomycin (5) New onset atrial fibrillation: Code(s): I48.91 - Unspecified atrial fibrillation Status: Acute Assessment and Plan: new finding partly to blame for decline in status/renal function(?) heart rate 94 on anticoagulation (6) Hypertension: Code(s): I10 - Essential (primary) hypertension Status: Chronic Assessment and Plan: systolic running 120-150 He is on metoprolol only Subjective Date/time seen: 06/14/21 12:55 Interval history: patient is alert. Still swollen but less so. Urine output is good. Exam Narrative: General: WD/WN male in NAD Heart: normal S1 and S2; no rub Lungs: fairly clear. Breath sounds are symmetric. Abdomen: BS+ nontender and soft Extremities: 2+ edema bilaterally it seems a little improved right now. Skin: Chronic venous stasis dermatitis Objective Data Vital Signs Vital Signs: Vital Signs - 24 hr 06/13/21 14:00 06/13/21 14:25 06/13/21 16:00 Temperature 36.2 C L Pulse Rate 62 64 Respiratory Rate 17 Blood Pressure 134/68 Pulse Oximetry 100 95 06/13/21 20:25 06/13/21 22:00 06/13/21 22:30 Temperature 37.5 C Pulse Rate 71 78 68 Respiratory Rate 16 Blood Pressure 128/69 Pulse Oximetry 100 95 06/14/21 00:00 06/14/21 04:00 06/14/21 05:48 Temperature 37.5 C Pulse Rate 63 68 64 Respiratory Rate 16 Blood Pressure 152/77 H Pulse Oximetry 100 06/14/21 08:00 06/14/21 08:01 06/14/21 08:23 Temperature Pulse Rate 75 72 Respiratory Rate Blood Pressure Pulse Oximetry 94 Intake/Output Intake/Output: Intake & Output 06/11/21 06/12/21 06/13/21 06/14/21 23:59 23:59 23:59 23:59 Intake Tota
--- NOTE | 2021-06-14 13:41 | PM.IMPN ---
Progress Note: A&P Assessment and Plan (1) Acute on chronic heart failure: Qualifiers: Heart failure type: unspecified Qualified Code(s): I50.9 - Heart failure, unspecified Code(s): I50.9 - Heart failure, unspecified Status: Acute Assessment and Plan: - Likely causation of pt's acute hypoxic respiratory failure that is improving slowly. - Supplemental oxygen has been decreased to 1.5L. - Continue strict I&O and daily weights. - Status post Right Thoracentesis for pleural effusion. - Pleural fluid positive for MSSA on 06/07/21, continue abx. This is day #5, no sx's of SIRS/Sepsis. - Pleural fluid from 06/10/21 was suggestive of exudative effusion with RBC's and WBC's. Will await culture report. They are pending. - Will continue to monitor with repeat CXR's. 06/13/2021 interval history: patient is 71 O male presented with acute on chronic kidney disease patient seen by Nephrology patient urine output has improved as well as his urine output patient states is feeling much better not a short of breath, and has been working with physical therapy, patient also has a new onset atrial fibrillation seen by cardiology suspect patient has proximal atrial fibrillation being treated with a metoprolol for rate control and anticoagulated with Eliquis, patient remains clinically stable will continue to monitor. 06/14/2021 interval history: patient is 71 y/o male presented with acute on chronic kidney disease patient seen by Nephrology patient urine output has improved as well as his creatinine patient states is feeling much better not a short of breath, and has been working with physical therapy, however today during physical therapy he complain of the pain in his left ankle and has difficulty weight-bearing on the extremity, will do the ankle x-ray and further recommendation to follow, patient also has a new onset atrial fibrillation seen by cardiology suspect patient has proximal atrial fibrillation being treated with a metoprolol for rate control and anticoagulated with Eliquis, patient remains clinically stable will continue to monitor. (2) Morbid obesity with BMI of 50.0-59.9, adult: Code(s): E66.01 - Morbid (severe) obesity due to excess calories; Z68.43 - Body mass index [BMI] 50.0-59.9, adult Status: Acute Assessment and Plan: - Lifestyle changes as much as possible at discharge. (3) Chronic venous insufficiency: Code(s): I87.2 - Venous insufficiency (chronic) (peripheral) Status: Acute Assessment and Plan: - Jayesh wraps every shift. (4) GERD without esophagitis: Code(s): K21.9 - Gastro-esophageal reflux disease without esophagitis Status: Acute Assessment and Plan: - PPI therapy. (5) Dyslipidemia: Code(s): E78.5 - Hyperlipidemia, unspecified Status: Acute Assessment and Plan: - Heart Healthy Diet (6) Essential (primary) hypertension: Code(s): I10 - Essential (primary) hypertension Status: Acute Assessment and Plan: - Monitor and provide home medications. (7) Peripheral polyneuropathy: Code(s): G62.9 - Polyneuropathy, unspecified Status: Acute Assessment and Plan: - Continue gabapentin (8) AMELIA (obstructive sleep apnea): Code(s): G47.33 - Obstructive sleep apnea (adult) (pediatric) Status: Acute Assessment and Plan: - Home BiPap (9) Acute respiratory failure with hypoxia: Code(s): J96.01 - Acute respiratory failure with hypoxia Status: Acute Assessment and Plan: - Likely secondary to acute on chronic diastolic heart failyure. - As evidenced by bilateral pleural effusion and edama of BLE. - Also has liver cirrhosis and ascites. - Keep K>4 and Mag>2. (10) New onset a-fib: Code(s): I48.91 - Unspecified atrial fibrillation Status: Acute Assessment and Plan: - Eliquis ordered, but currently holding due to bleeding around dialysis
[2021-06-14 14:12] LABS: Amylase, Pleural Fluid 25 U/L
--- NOTE | 2021-06-14 14:45 | PCOTNOTE ---
Attempted to see pt. for occupational therapy treatment. Despite encouragement, Pt. refused treatment, reporting he was too tired and cold.
[2021-06-14] MEDS: ACETAMINOPHEN 500 MG TABLET PO (16:57)
[2021-06-15] VITALS (10 sets, daily range): BP systolic 121–132; BP diastolic 58–73; PULSE 62–83; RESP 16–20; TEMP 36.4–37.9; O2SAT 94–98
[2021-06-15] MEDS: LEVOTHYROXINE SODIUM 25 MCG TABLET PO (05:33)
[2021-06-15] MEDS: LEVOTHYROXINE SODIUM 100 MCG TABLET 200 MCG PO (05:33)
[2021-06-15 07:08] LABS: Albumin Level 3.2 g/dL (3.5-5.1); Anion Gap 6 mmol/L (8-16); Blood Urea Nitrogen 13 mg/dL (9-20); Calcium 7.8 mg/dL (8.4-10.2); Carbon Dioxide 39 mmol/L (22-30); Chloride 93 mmol/L (98-107); Estimated CRCL calculation 90 ml/min; Estimated Glomerular Filt Rate > 60; Glucose 87 mg/dL (65-110); Phosphorus 2.5 mg/dL (2.5-4.5); Potassium 2.8 mmol/L (3.4-5.0); Sodium 138 mmol/L (137-145)
[2021-06-15 08:18] LABS: Magnesium 1.7 mg/dL (1.6-2.3)
[2021-06-15] MEDS: POTASSIUM CHLORIDE INJ 40 MEQ in SODIUM CHLORIDE 0.9% IV 500 ML 130 MEQ IVPB (08:27)
[2021-06-15] MEDS: POTASSIUM CHLORIDE 20 MEQ TABLET 40 MEQ PO (08:27)
[2021-06-15] MEDS: GABAPENTIN 300 MG CAPSULE PO ×4 (08:28→20:52)
[2021-06-15] MEDS: BUMETANIDE INJ 2.5 MG/10 ML VIAL 2 MG IV PUSH ×2 (08:28→18:04)
[2021-06-15] MEDS: METOPROLOL TARTRATE 50 MG TAB PO ×2 (08:28→20:51)
[2021-06-15] MEDS: FLUTICASONE PROPIONATE 0.05% NA SPR 16 GM BTL (*BKC) 1 SPRAY NASAL (08:29)
[2021-06-15] MEDS: PANTOPRAZOLE 40 MG TABLET PO (08:29)
[2021-06-15] MEDS: APIXABAN 5 MG TABLET PO ×2 (08:29→20:51)
[2021-06-15] MEDS: LACTIC ACID 12% LOTION 225 BTL 1 APPLIC TOPICAL (08:29)
[2021-06-15] MEDS: LORATADINE 10 MG TABLET PO (08:29)
[2021-06-15] MEDS: TAMSULOSIN HCL 0.4 MG CAPSULE PO (08:29)
[2021-06-15] MEDS: TOLNAFTATE 1% POWDER 45 GM BTL 1 APPLIC TOPICAL ×2 (08:30→20:57)
--- NOTE | 2021-06-15 10:10 | P.PNNP_ITS ---
Progress Note: A&P Assessment and Plan (1) JENA (acute kidney injury): Code(s): N17.9 - Acute kidney failure, unspecified Status: Acute Assessment and Plan: * multifactorial etiology: * Most this comes down to the following 2 issues: * renal venous hypertension * contrast exposure (renal function was already deteriorating prior to dye use) * Creatinine is doing well. * He made 3000cc + of urine yesterday. * Will remove dialysis catheter. * Continue diuretics. (2) Stage 3a chronic kidney disease: Code(s): N18.31 - Chronic kidney disease, stage 3a Status: Chronic Assessment and Plan: * baseline creatinine runs ~ 1.4 - 1.7mg/dl in the last few years * due to hypertension and chronic pre renal azotemia due to his poorly functioning heart and possibly new liver disease * may be an element of disease progression due to necessity of diuretic titration/escalation to treat his edema (3) Acute on chronic heart failure: Qualifiers: Heart failure type: unspecified Qualified Code(s): I50.9 - Heart failure, unspecified Code(s): I50.9 - Heart failure, unspecified Status: Acute Assessment and Plan: * as noted by fluid retention, weight gain, and shortness of breath * fluid overload is improving. * Will continue the Bumex 2 mg IV twice a day while here. We can switch to p.o. at discharge or if the creatinine starts to rise whichever comes 1st. (4) Respiratory failure with hypoxia: Qualifiers: Chronicity: acute Qualified Code(s): J96.01 - Acute respiratory failure with hypoxia Code(s): J96.91 - Respiratory failure, unspecified with hypoxia Status: Acute Assessment and Plan: * multiple issues could be responsible - worsening CHF versus worsening renal dysfunction versus infection/sepsis versus PE... * CTA of chest noted - no PE but pleural effusions present * using BiPAP PRN and every night. * s/p thoracentesis (on 06/06/21) with 925cc removed - PD fluid culture with Staph but pH is okay and not many wbcs. contaminant? Repeat thoracentesis done yesterday. Cultures done and are no growth today * getting vancomycin (5) New onset atrial fibrillation: Code(s): I48.91 - Unspecified atrial fibrillation Status: Acute Assessment and Plan: * new finding * partly to blame for decline in status/renal function(?) * heart rate 94 * on anticoagulation (6) Hypertension: Code(s): I10 - Essential (primary) hypertension Status: Chronic Assessment and Plan: * systolic running 120-150 * He is on metoprolol only Subjective Date/time seen: 06/15/21 10:10 Interval history: patient is alert. Still swollen but less so. Urine output is good. Over 3L yesterday. Exam Narrative: General: WD/WN male in NAD Heart: normal S1 and S2; no rub Lungs: fairly clear. Breath sounds are symmetric. Abdomen: BS+ nontender and soft Extremities: 2+ edema bilaterally it seems a little improved right now. Skin: Chronic venous stasis dermatitis Objective Data Vital Signs Vital Signs: Vital Signs - 24 hr 06/14/21 12:00 06/14/21 14:00 06/14/21 16:00 Temperature 36.5 C Pulse Rate 79 72 86 Respiratory Rate 17 Blood Pressure 120/62 Pulse Oximetry 95 06/14/21 20:00 06/14/21 20:43 06/14/21 21:30
--- NOTE | 2021-06-15 10:10 | PM.PNNEP ---
Progress Note: A&P Assessment and Plan (1) JENA (acute kidney injury): Code(s): N17.9 - Acute kidney failure, unspecified Status: Acute Assessment and Plan: multifactorial etiology: Most this comes down to the following 2 issues: renal venous hypertension contrast exposure (renal function was already deteriorating prior to dye use) Creatinine is doing well. He made 3000cc + of urine yesterday. Will remove dialysis catheter. Continue diuretics. (2) Stage 3a chronic kidney disease: Code(s): N18.31 - Chronic kidney disease, stage 3a Status: Chronic Assessment and Plan: baseline creatinine runs ~ 1.4 - 1.7mg/dl in the last few years due to hypertension and chronic pre renal azotemia due to his poorly functioning heart and possibly new liver disease may be an element of disease progression due to necessity of diuretic titration/escalation to treat his edema (3) Acute on chronic heart failure: Qualifiers: Heart failure type: unspecified Qualified Code(s): I50.9 - Heart failure, unspecified Code(s): I50.9 - Heart failure, unspecified Status: Acute Assessment and Plan: as noted by fluid retention, weight gain, and shortness of breath fluid overload is improving. Will continue the Bumex 2 mg IV twice a day while here. We can switch to p.o. at discharge or if the creatinine starts to rise whichever comes 1st. (4) Respiratory failure with hypoxia: Qualifiers: Chronicity: acute Qualified Code(s): J96.01 - Acute respiratory failure with hypoxia Code(s): J96.91 - Respiratory failure, unspecified with hypoxia Status: Acute Assessment and Plan: multiple issues could be responsible - worsening CHF versus worsening renal dysfunction versus infection/sepsis versus PE... CTA of chest noted - no PE but pleural effusions present using BiPAP PRN and every night. s/p thoracentesis (on 06/06/21) with 925cc removed - PD fluid culture with Staph but pH is okay and not many wbcs. contaminant? Repeat thoracentesis done yesterday. Cultures done and are no growth today getting vancomycin (5) New onset atrial fibrillation: Code(s): I48.91 - Unspecified atrial fibrillation Status: Acute Assessment and Plan: new finding partly to blame for decline in status/renal function(?) heart rate 94 on anticoagulation (6) Hypertension: Code(s): I10 - Essential (primary) hypertension Status: Chronic Assessment and Plan: systolic running 120-150 He is on metoprolol only Subjective Date/time seen: 06/15/21 10:10 Interval history: patient is alert. Still swollen but less so. Urine output is good. Over 3L yesterday. Exam Narrative: General: WD/WN male in NAD Heart: normal S1 and S2; no rub Lungs: fairly clear. Breath sounds are symmetric. Abdomen: BS+ nontender and soft Extremities: 2+ edema bilaterally it seems a little improved right now. Skin: Chronic venous stasis dermatitis Objective Data Vital Signs Vital Signs: Vital Signs - 24 hr 06/14/21 12:00 06/14/21 14:00 06/14/21 16:00 Temperature 36.5 C Pulse Rate 79 72 86 Respiratory Rate 17 Blood Pressure 120/62 Pulse Oximetry 95 06/14/21 20:00 06/14/21 20:43 06/14/21 21:30 Temperature Pulse Rate 83 88 Respiratory Rate Blood Pressure Pulse Oximetry 95 93 06/14/21 21:38 06/14/21 23:13 06/15/21 00:00 Temperature 36.4 C L Pulse Rate 67 67 62 Respiratory Rate 16 Blood Pressure 149/66 H Pulse Oximetry 93 93 06/15/21 04:00 06/15/21 06:00 Temperature 36.4 C L Pulse Rate 66 65 Respiratory Rate 20 Blood Pressure 132/58 L Pulse Oximetry 98 Intake/Output Intake/Output: Intake & Output 06/12/21 06/13/21 06/14/21 06/15/21 23:59 23:59 23:59 23:59 Intake Total 1490 1250 2535 480 Output Total 4019 4028 [id number] 1999 [facility] [place] [phone]
--- NOTE | 2021-06-15 11:29 | PM.IMPN ---
Progress Note: A&P Assessment and Plan (1) Acute on chronic heart failure: Qualifiers: Heart failure type: unspecified Qualified Code(s): I50.9 - Heart failure, unspecified Code(s): I50.9 - Heart failure, unspecified Status: Acute Assessment and Plan: - Likely causation of pt's acute hypoxic respiratory failure that is improving slowly. - Supplemental oxygen has been decreased to 1.5L. - Continue strict I&O and daily weights. - Status post Right Thoracentesis for pleural effusion. - Pleural fluid positive for MSSA on 06/07/21, continue abx. This is day #5, no sx's of SIRS/Sepsis. - Pleural fluid from 06/10/21 was suggestive of exudative effusion with RBC's and WBC's. Will await culture report. They are pending. - Will continue to monitor with repeat CXR's. 06/13/2021 interval history: patient is 71 O male presented with acute on chronic kidney disease patient seen by Nephrology patient urine output has improved as well as his urine output patient states is feeling much better not a short of breath, and has been working with physical therapy, patient also has a new onset atrial fibrillation seen by cardiology suspect patient has proximal atrial fibrillation being treated with a metoprolol for rate control and anticoagulated with Eliquis, patient remains clinically stable will continue to monitor. 06/14/2021 interval history: patient is 71 y/o male presented with acute on chronic kidney disease patient seen by Nephrology patient urine output has improved as well as his creatinine patient states is feeling much better not a short of breath, and has been working with physical therapy, however today during physical therapy he complain of the pain in his left ankle and has difficulty weight-bearing on the extremity, will do the ankle x-ray and further recommendation to follow, patient also has a new onset atrial fibrillation seen by cardiology suspect patient has proximal atrial fibrillation being treated with a metoprolol for rate control and anticoagulated with Eliquis, patient remains clinically stable will continue to monitor. 06/15/2021 interval history: patient is 71 y/o male presented with acute on chronic kidney disease patient seen by Nephrology patient urine output has improved as well as his creatinine, initial plan was patient may need dailysis and cathter placed, now patient is urinating well and his creatinine is back to normal, club former recommending to remove the dialysis catheter, patient states is feeling much better not as short of breath, and has been working with physical therapy, however on 315 during physical therapy he complain of the pain in his left ankle and has difficulty weight-bearing on the extremity, the ankle x-ray showed mild arthritis, today patient includes little better, he will work with PT OT, patient also has a new onset atrial fibrillation seen by cardiology suspect patient has proximal atrial fibrillation being treated with a metoprolol for rate control and anticoagulated with Eliquis, patient remains clinically stable will continue to monitor. (2) Morbid obesity with BMI of 50.0-59.9, adult: Code(s): E66.01 - Morbid (severe) obesity due to excess calories; Z68.43 - Body mass index [BMI] 50.0-59.9, adult Status: Acute Assessment and Plan: - Lifestyle changes as much as possible at discharge. (3) Chronic venous insufficiency: Code(s): I87.2 - Venous insufficiency (chronic) (peripheral) Status: Acute Assessment and Plan: - Jayesh wraps every shift. (4) GERD without esophagitis: Code(s): K21.9 - Gastro-esophageal reflux disease without esophagitis Status: Acute Assessment and Plan: - PPI therapy. (5) Dyslipidemia: Code(s): E78.5 - Hyperlipidemia, unspecified Status: Acute Assessment and Plan: - Heart Healthy Diet (6) Essential (primary) hypertension: Code(s): I10 - Essential (primary) hyper
--- NOTE | 2021-06-15 13:37 | PM.PNCARD ---
Progress Note: A&P Assessment and Plan (1) Respiratory failure with hypoxia: Qualifiers: Chronicity: acute Qualified Code(s): J96.01 - Acute respiratory failure with hypoxia Code(s): J96.91 - Respiratory failure, unspecified with hypoxia Status: Acute Assessment and Plan: improved with dialysis and thoracentesis (2) Acute on chronic heart failure with preserved ejection fraction: Code(s): I50.33 - Acute on chronic diastolic (congestive) heart failure Status: Acute Assessment and Plan: Acute right and left heart failure with preserved systolic function. Echo reveals severe RV enlargement and hypokinesis with moderate pulmonary hypertension. CTA was negative for pulmonary embolus. Continue Bumex 2mg IV b.i.d. HTN controlled Pt glad he was started on dialysis this admission; feeling better. CHF improving. (3) New onset atrial fibrillation: Code(s): I48.91 - Unspecified atrial fibrillation Status: Acute Assessment and Plan: New onset atrial fibrillation, appears paroxysmal on telemetry along with possible intermittent junctional escape rhythm. Currently in sinus rhythm. Heart rate reasonably controlled with metoprolol 50 mg BID. Be cautious with AV orquidea blocking agents given underlying bundle-branch block, intermittent junctional rhythm, and fairly controlled heart rate in atrial fibrillation suggestive of significant underlying conduction system disease. CHADS2 Vasc score 4. Eliquis 5 mg b.i.d. Continue metoprolol 50 mg BID Continue telemetry. (4) Acute kidney injury superimposed on chronic kidney disease: Code(s): N17.9 - Acute kidney failure, unspecified; N18.9 - Chronic kidney disease, unspecified Status: Acute Assessment and Plan: Started on hemodialysis this admission. (5) Pulmonary hypertension: Code(s): I27.20 - Pulmonary hypertension, unspecified Status: Acute Assessment and Plan: Consistent with cor pulmonale. Moderate severity RVSP 51 mm Hg similar to prior echo June 2020. RV enlargement hypokinesis also similar. Lower extremity Dopplers negative for DVT. CT negative for PE (6) Essential (primary) hypertension: Code(s): I10 - Essential (primary) hypertension Status: Acute Assessment and Plan: Controlled. (7) AMELIA (obstructive sleep apnea): Code(s): G47.33 - Obstructive sleep apnea (adult) (pediatric) Status: Acute Assessment and Plan: compliance with BiPAP. (8) Lymphedema of both lower extremities: Code(s): I89.0 - Lymphedema, not elsewhere classified Status: Acute Assessment and Plan: Chronic. DVT prophylaxis. Wound care. Jayesh wraps. No DVT on lower extremity venous Dopplers. Subjective Date/time seen: 06/15/21 13:37 Interval history: Cardiology follow up for CHF, Afib 06/09/2021: Feels about the same today, breathing slightly more labored. States he feels like someone is sitting on his chest. No other complaints. Discussed plan of care Date of service 06/10/2021: Had thoracentesis with removal of 1 L fluid from the right lung today. Start dialysis with removal of 4000 cc of fluid. Breathing a little better. Telemetry shows probable AFib versus junctional rhythm rate in the 60s, occasional PVCs versus AFib. Underlying rhythm is a RBBB Date of service 06/11/2021: Feeling pretty good, breathing better, had another dialysis treatment today. Dr. Cuenca put a stitch in the dialysis catheter to reduce the bloody oozing. Patient has not been out of bed today, are tears are uncomfortable for him. Tele - a fib rate 60's. Date of service 06/12/2021: Complaining of shortness of breath this morning. States that last night he became acutely short of breath and felt like he was gasping for air. Feels better on his home BiPAP Date of service 06/13/2021: Feeling better today. No longer feeling short of breath. He d
--- NOTE | 2021-06-15 15:15 | PC.NURSE ---
Young catheter discontinued as ordered per protocol. Pt tolerated procedure well. Pressure applied x 15 minutes and pressure dressing applied. No bleeding form site noted. Site appears WNL. Will monitor.
[2021-06-15 17:39] LABS: Blood Urea Nitrogen 13 mg/dL (9-20); Calcium 8.1 mg/dL (8.4-10.2); Carbon Dioxide > 40 mmol/L (22-30); Chloride 94 mmol/L (98-107); Estimated CRCL calculation 90 ml/min; Estimated Glomerular Filt Rate > 60; Glucose 92 mg/dL (65-110); Magnesium 1.7 mg/dL (1.6-2.3); Potassium 3.4 mmol/L (3.4-5.0); Sodium 138 mmol/L (137-145)
[2021-06-15] MEDS: ACETAMINOPHEN 500 MG TABLET PO (20:54)
[2021-06-16] VITALS (12 sets, daily range): BP systolic 121–136; BP diastolic 62–73; PULSE 62–116; RESP 16–20; TEMP 35.8–37.2; O2SAT 92–99; BMI 50.6
[2021-06-16] MEDS: LEVOTHYROXINE SODIUM 25 MCG TABLET PO (05:48)
[2021-06-16] MEDS: LEVOTHYROXINE SODIUM 100 MCG TABLET 200 MCG PO (05:49)
[2021-06-16 06:54] LABS: Albumin Level 3.2 g/dL (3.5-5.1); Blood Urea Nitrogen 11 mg/dL (9-20); Calcium 7.9 mg/dL (8.4-10.2); Carbon Dioxide > 40 mmol/L (22-30); Chloride 93 mmol/L (98-107); Estimated CRCL calculation 90 ml/min; Estimated Glomerular Filt Rate > 60; Glucose 84 mg/dL (65-110); Phosphorus 2.7 mg/dL (2.5-4.5); Potassium 3.1 mmol/L (3.4-5.0); Sodium 137 mmol/L (137-145)
[2021-06-16] MEDS: GABAPENTIN 300 MG CAPSULE PO ×4 (08:03→20:24)
[2021-06-16] MEDS: LORATADINE 10 MG TABLET PO (08:04)
[2021-06-16] MEDS: TAMSULOSIN HCL 0.4 MG CAPSULE PO (08:04)
[2021-06-16] MEDS: METOPROLOL TARTRATE 50 MG TAB PO ×2 (08:04→20:24)
[2021-06-16] MEDS: PANTOPRAZOLE 40 MG TABLET PO (08:04)
[2021-06-16] MEDS: APIXABAN 5 MG TABLET PO ×2 (08:04→20:24)
[2021-06-16] MEDS: TOLNAFTATE 1% POWDER 45 GM BTL 1 APPLIC TOPICAL ×2 (08:05→20:25)
[2021-06-16] MEDS: FLUTICASONE PROPIONATE 0.05% NA SPR 16 GM BTL (*BKC) 1 SPRAY NASAL (08:05)
[2021-06-16] MEDS: LACTIC ACID 12% LOTION 225 BTL 1 APPLIC TOPICAL (08:05)
[2021-06-16] MEDS: BUMETANIDE INJ 2.5 MG/10 ML VIAL 2 MG IV PUSH ×2 (08:05→18:03)
--- NOTE | 2021-06-16 10:18 | P.PNNP_ITS ---
Progress Note: A&P Assessment and Plan (1) JENA (acute kidney injury): Code(s): N17.9 - Acute kidney failure, unspecified Status: Acute Assessment and Plan: * multifactorial etiology: * Most this comes down to the following 2 issues: * renal venous hypertension * contrast exposure (renal function was already deteriorating prior to dye use) * Creatinine is doing well. * He made 2000cc of urine yesterday. * dialysis catheter is gone. * Bicarbonate level is high. Will add acetazolamide. * Continue diuretics IV for now. see below. (2) Stage 3a chronic kidney disease: Code(s): N18.31 - Chronic kidney disease, stage 3a Status: Chronic Assessment and Plan: * baseline creatinine runs ~ 1.4 - 1.7mg/dl in the last few years * due to hypertension and chronic pre renal azotemia due to his poorly functioning heart and possibly new liver disease * His creatinine is actually better than usual. (3) Acute on chronic heart failure: Qualifiers: Heart failure type: unspecified Qualified Code(s): I50.9 - Heart failure, unspecified Code(s): I50.9 - Heart failure, unspecified Status: Acute Assessment and Plan: * as noted by fluid retention, weight gain, and shortness of breath * fluid overload is improving. * Will continue the Bumex 2 mg IV twice a day while here. We can switch to p.o. at discharge or if the creatinine starts to rise whichever comes 1st. Okay from the renal standpoint for discharge whenever he is ready strength souza and heart souza. (4) Respiratory failure with hypoxia: Qualifiers: Chronicity: acute Qualified Code(s): J96.01 - Acute respiratory failure with hypoxia Code(s): J96.91 - Respiratory failure, unspecified with hypoxia Status: Acute Assessment and Plan: * multiple issues could be responsible - worsening CHF versus worsening renal dysfunction versus infection/sepsis versus PE... * CTA of chest noted - no PE but pleural effusions present * using BiPAP PRN and every night. * s/p thoracentesis (on 06/06/21) with 925cc removed - PD fluid culture with Staph but pH is okay and not many wbcs. contaminant? Repeat thoracentesis done yesterday. Cultures done and are no growth today * getting vancomycin (5) New onset atrial fibrillation: Code(s): I48.91 - Unspecified atrial fibrillation Status: Acute Assessment and Plan: * new finding * partly to blame for decline in status/renal function(?) * heart rate 86 * on anticoagulation (6) Hypertension: Code(s): I10 - Essential (primary) hypertension Status: Chronic Assessment and Plan: * systolic running 120-150 * He is on metoprolol only Subjective Date/time seen: 06/16/21 10:18 Interval history: patient is alert. swelling is about the same. Urine output is good. Exam Narrative: General: WD/WN male in NAD Heart: normal S1 and S2; no rub or gallop Lungs: decreased breath sounds at the bases, clear otherwise Abdomen: BS+ nontender and soft Extremities: 2+ edema bilaterally it seems a little improved right now. Skin: Chronic venous stasis dermatitis Objective Data Vital Signs Vital Signs: Vital Signs - 24 hr 06/15/21 14:00 06/15/21 20:00 06/15/21 20:51 Temperature 36.6 C Pulse Rate 68 78 83 Respiratory Rate 18 Blood Pressure 121/68
--- NOTE | 2021-06-16 10:18 | PM.PNNEP ---
Progress Note: A&P Assessment and Plan (1) JENA (acute kidney injury): Code(s): N17.9 - Acute kidney failure, unspecified Status: Acute Assessment and Plan: multifactorial etiology: Most this comes down to the following 2 issues: renal venous hypertension contrast exposure (renal function was already deteriorating prior to dye use) Creatinine is doing well. He made 2000cc of urine yesterday. dialysis catheter is gone. Bicarbonate level is high. Will add acetazolamide. Continue diuretics IV for now. see below. (2) Stage 3a chronic kidney disease: Code(s): N18.31 - Chronic kidney disease, stage 3a Status: Chronic Assessment and Plan: baseline creatinine runs ~ 1.4 - 1.7mg/dl in the last few years due to hypertension and chronic pre renal azotemia due to his poorly functioning heart and possibly new liver disease His creatinine is actually better than usual. (3) Acute on chronic heart failure: Qualifiers: Heart failure type: unspecified Qualified Code(s): I50.9 - Heart failure, unspecified Code(s): I50.9 - Heart failure, unspecified Status: Acute Assessment and Plan: as noted by fluid retention, weight gain, and shortness of breath fluid overload is improving. Will continue the Bumex 2 mg IV twice a day while here. We can switch to p.o. at discharge or if the creatinine starts to rise whichever comes 1st. Okay from the renal standpoint for discharge whenever he is ready strength souza and heart souza. (4) Respiratory failure with hypoxia: Qualifiers: Chronicity: acute Qualified Code(s): J96.01 - Acute respiratory failure with hypoxia Code(s): J96.91 - Respiratory failure, unspecified with hypoxia Status: Acute Assessment and Plan: multiple issues could be responsible - worsening CHF versus worsening renal dysfunction versus infection/sepsis versus PE... CTA of chest noted - no PE but pleural effusions present using BiPAP PRN and every night. s/p thoracentesis (on 06/06/21) with 925cc removed - PD fluid culture with Staph but pH is okay and not many wbcs. contaminant? Repeat thoracentesis done yesterday. Cultures done and are no growth today getting vancomycin (5) New onset atrial fibrillation: Code(s): I48.91 - Unspecified atrial fibrillation Status: Acute Assessment and Plan: new finding partly to blame for decline in status/renal function(?) heart rate 86 on anticoagulation (6) Hypertension: Code(s): I10 - Essential (primary) hypertension Status: Chronic Assessment and Plan: systolic running 120-150 He is on metoprolol only Subjective Date/time seen: 06/16/21 10:18 Interval history: patient is alert. swelling is about the same. Urine output is good. Exam Narrative: General: WD/WN male in NAD Heart: normal S1 and S2; no rub or gallop Lungs: decreased breath sounds at the bases, clear otherwise Abdomen: BS+ nontender and soft Extremities: 2+ edema bilaterally it seems a little improved right now. Skin: Chronic venous stasis dermatitis Objective Data Vital Signs Vital Signs: Vital Signs - 24 hr 06/15/21 14:00 06/15/21 20:00 06/15/21 20:51 Temperature 36.6 C Pulse Rate 68 78 83 Respiratory Rate 18 Blood Pressure 121/68 Pulse Oximetry 96 94 06/15/21 21:59 06/15/21 22:13 06/15/21 22:14 Temperature 37.9 C H Pulse Rate 83 83 83 Respiratory Rate 16 Blood Pressure 132/73 Pulse Oximetry 96 95 96 06/16/21 00:00 06/16/21 04:00 06/16/21 06:00 Temperature 37.2 C Pulse Rate 75 67 116 H Respiratory Rate 16 Blood Pressure 121/62 Pulse Oximetry 95 06/16/21 08:00 06/16/21 08:04 06/16/21 09:04 Temperature Pulse Rate 86 Respiratory Rate Blood Pressure Pulse Oximetry 92 94 Intake/Output Intake/Output: Intake & Output 06/13/21 06/14/21
--- NOTE | 2021-06-16 10:37 | PM.PNCARD ---
Progress Note: A&P Assessment and Plan (1) Respiratory failure with hypoxia: Qualifiers: Chronicity: acute Qualified Code(s): J96.01 - Acute respiratory failure with hypoxia Code(s): J96.91 - Respiratory failure, unspecified with hypoxia Status: Acute Assessment and Plan: Improved with dialysis and thoracentesis (2) Acute on chronic heart failure with preserved ejection fraction: Code(s): I50.33 - Acute on chronic diastolic (congestive) heart failure Status: Acute Assessment and Plan: Acute right and left heart failure with preserved systolic function. Echo reveals severe RV enlargement and hypokinesis with moderate pulmonary hypertension. CTA was negative for pulmonary embolus. Continue Bumex 2mg IV b.i.d. HTN controlled CHF improved. Discharge planning? OK for discharge from a cardiac perspective. Suspect he will need some rehab. (3) New onset atrial fibrillation: Code(s): I48.91 - Unspecified atrial fibrillation Status: Acute Assessment and Plan: New onset atrial fibrillation, appears paroxysmal on telemetry along with possible intermittent junctional escape rhythm. Currently in sinus rhythm. Heart rate reasonably controlled with metoprolol 50 mg BID. Be cautious with AV orquidea blocking agents given underlying bundle-branch block, intermittent junctional rhythm, and fairly controlled heart rate in atrial fibrillation suggestive of significant underlying conduction system disease. CHADS2 Vasc score 4. A/c with Eliquis 5 mg b.i.d. Continue metoprolol 50 mg BID Continue telemetry. (4) Acute kidney injury superimposed on chronic kidney disease: Code(s): N17.9 - Acute kidney failure, unspecified; N18.9 - Chronic kidney disease, unspecified Status: Acute Assessment and Plan: Started on hemodialysis this admission. Now making good urine on IV Bumex. Dialysis catheter has been removed at this point. (5) Pulmonary hypertension: Code(s): I27.20 - Pulmonary hypertension, unspecified Status: Acute Assessment and Plan: Consistent with cor pulmonale. Moderate severity RVSP 51 mm Hg similar to prior echo June 2020. RV enlargement hypokinesis also similar. Lower extremity Dopplers negative for DVT. CT negative for PE (6) Essential (primary) hypertension: Code(s): I10 - Essential (primary) hypertension Status: Acute Assessment and Plan: Controlled. (7) AMELIA (obstructive sleep apnea): Code(s): G47.33 - Obstructive sleep apnea (adult) (pediatric) Status: Acute Assessment and Plan: compliance with BiPAP. (8) Lymphedema of both lower extremities: Code(s): I89.0 - Lymphedema, not elsewhere classified Status: Acute Assessment and Plan: Chronic. DVT prophylaxis. Wound care. Jayesh wraps. No DVT on lower extremity venous Dopplers. Additional Plan Subjective Date/time seen: 06/16/21 10:37 Interval history: Cardiology follow up for CHF, Afib 06/09/2021: Feels about the same today, breathing slightly more labored. States he feels like someone is sitting on his chest. No other complaints. Discussed plan of care Date of service 06/10/2021: Had thoracentesis with removal of 1 L fluid from the right lung today. Start dialysis with removal of 4000 cc of fluid. Breathing a little better. Telemetry shows probable AFib versus junctional rhythm rate in the 60s, occasional PVCs versus AFib. Underlying rhythm is a RBBB Date of service 06/11/2021: Feeling pretty good, breathing better, had another dialysis treatment today. Dr. Cuenca put a stitch in the dialysis catheter to reduce the bloody oozing. Patient has not been out of bed today, are tears are uncomfortable for him. Tele - a fib rate 60's. Date of service 06/12/2021: Complaining of shortness of breath this morning. States that last night he became acutely short of breath and felt like he was gaspi
[2021-06-16 11:59] LABS: Vancomycin Trough 9.7 ug/mL (10.0-20.0)
[2021-06-16] MEDS: POTASSIUM CHLORIDE 20 MEQ TABLET 40 MEQ PO (12:48)
--- NOTE | 2021-06-16 16:14 | PM.IMPN ---
Progress Note: A&P Assessment and Plan (1) Acute on chronic heart failure: Qualifiers: Heart failure type: unspecified Qualified Code(s): I50.9 - Heart failure, unspecified Code(s): I50.9 - Heart failure, unspecified Status: Acute Assessment and Plan: - Likely causation of pt's acute hypoxic respiratory failure that is improving slowly. - Supplemental oxygen has been decreased to 1.5L. - Continue strict I&O and daily weights. - Status post Right Thoracentesis for pleural effusion. - Pleural fluid positive for MSSA on 06/07/21, continue abx. This is day #5, no sx's of SIRS/Sepsis. - Pleural fluid from 06/10/21 was suggestive of exudative effusion with RBC's and WBC's. Will await culture report. They are pending. - Will continue to monitor with repeat CXR's. 06/13/2021 interval history: patient is 71 O male presented with acute on chronic kidney disease patient seen by Nephrology patient urine output has improved as well as his urine output patient states is feeling much better not a short of breath, and has been working with physical therapy, patient also has a new onset atrial fibrillation seen by cardiology suspect patient has proximal atrial fibrillation being treated with a metoprolol for rate control and anticoagulated with Eliquis, patient remains clinically stable will continue to monitor. 06/14/2021 interval history: patient is 71 y/o male presented with acute on chronic kidney disease patient seen by Nephrology patient urine output has improved as well as his creatinine patient states is feeling much better not a short of breath, and has been working with physical therapy, however today during physical therapy he complain of the pain in his left ankle and has difficulty weight-bearing on the extremity, will do the ankle x-ray and further recommendation to follow, patient also has a new onset atrial fibrillation seen by cardiology suspect patient has proximal atrial fibrillation being treated with a metoprolol for rate control and anticoagulated with Eliquis, patient remains clinically stable will continue to monitor. 06/15/2021 interval history: patient is 71 y/o male presented with acute on chronic kidney disease patient seen by Nephrology patient urine output has improved as well as his creatinine, initial plan was patient may need dailysis and cathter placed, now patient is urinating well and his creatinine is back to normal, butter wrapper recommending to remove the dialysis catheter, patient states is feeling much better not as short of breath, and has been working with physical therapy, however on 315 during physical therapy he complain of the pain in his left ankle and has difficulty weight-bearing on the extremity, the ankle x-ray showed mild arthritis, today patient includes little better, he will work with PT OT, patient also has a new onset atrial fibrillation seen by cardiology suspect patient has proximal atrial fibrillation being treated with a metoprolol for rate control and anticoagulated with Eliquis, patient remains clinically stable will continue to monitor. 06/16/2021 interval history: Patient remains clinically stable has no new complete, waiting to be transferred to nursing pending except will continue to monitor. (2) Morbid obesity with BMI of 50.0-59.9, adult: Code(s): E66.01 - Morbid (severe) obesity due to excess calories; Z68.43 - Body mass index [BMI] 50.0-59.9, adult Status: Acute Assessment and Plan: - Lifestyle changes as much as possible at discharge. (3) Chronic venous insufficiency: Code(s): I87.2 - Venous insufficiency (chronic) (peripheral) Status: Acute Assessment and Plan: - Jayesh wraps every shift. (4) GERD without esophagitis: Code(s): K21.9 - Gastro-esophageal reflux disease without esophagitis Status: Acute Assessment and Plan: - PPI therapy. (5) Dyslipidemia: Code(s): E78.5 - Hyperlipidemia, uns
[2021-06-16] MEDS: acetaZOLAMIDE TAB 250 MG TABLET 500 MG PO (17:14)
[2021-06-16] MEDS: ACETAMINOPHEN 500 MG TABLET PO (21:10)
[2021-06-17] VITALS (13 sets, daily range): BP systolic 127–150; BP diastolic 65–78; PULSE 63–72; RESP 14–20; TEMP 36–36.1; O2SAT 94–100
[2021-06-17] MEDS: LEVOTHYROXINE SODIUM 25 MCG TABLET PO (05:37)
[2021-06-17] MEDS: LEVOTHYROXINE SODIUM 100 MCG TABLET 200 MCG PO (05:37)
[2021-06-17 05:57] LABS: Basophils Absolute Auto 0.1 K/mm3 (0.0-0.1); Basophils Percent Auto 1.7 % (0.2-1.2); Eosinophils Absolute Auto 0.5 K/mm3 (0-0.3); Eosinophils Percent Auto 6.2 % (0-4.4); Hematocrit 41.1 % (42.0-52.0); Hemoglobin 11.4 g/dL (14.0-18.0); Immature Granulocyte Absolute 0.03 K/mm3 (0.00-0.031); Immature Granulocyte Percent A 0.4 % (0-0.5); Lymphocytes Absolute Auto 0.84 K/mm3 (0.9-3.2); Lymphocytes Percent Auto 11.1 % (18.3-44.2); Mean Corpuscular HGB Conc 27.7 g/dl (32-36); Mean Corpuscular Hemoglobin 26.3 pg (26-34); Mean Corpuscular Volume 94.7 fl (80-100); Mean Platelet Volume 10.6 fl (7.4-10.4); Monocytes Absolute Auto 0.7 K/mm3 (0.1-0.6); Monocytes Percent Auto 8.6 % (2.6-8.5); Neutrophils Absolute Auto 5.4 K/mm3 (1.3-6.7); Platelet Count Result 367 k/mm3 (150-375); Red Blood Count 4.34 M/mm3 (4.6-6.20); Red Cell Distribution Width 16.4 % (11.5-14.5); White Blood Count 7.5 K/mm3 (4.5-10.0)
[2021-06-17 06:24] LABS: Albumin Level 3.4 g/dL (3.5-5.1); Blood Urea Nitrogen 12 mg/dL (9-20); Calcium 8.2 mg/dL (8.4-10.2); Carbon Dioxide > 40 mmol/L (22-30); Chloride 91 mmol/L (98-107); Estimated CRCL calculation 77 ml/min; Estimated Glomerular Filt Rate 54; Glucose 86 mg/dL (65-110); Phosphorus 2.9 mg/dL (2.5-4.5); Potassium 3.1 mmol/L (3.4-5.0); Sodium 138 mmol/L (137-145)
[2021-06-17] MEDS: PANTOPRAZOLE 40 MG TABLET PO (10:17)
[2021-06-17] MEDS: APIXABAN 5 MG TABLET PO ×2 (10:18→20:04)
[2021-06-17] MEDS: acetaZOLAMIDE TAB 250 MG TABLET 500 MG PO ×2 (10:18→18:20)
[2021-06-17] MEDS: LORATADINE 10 MG TABLET PO (10:18)
[2021-06-17] MEDS: GABAPENTIN 300 MG CAPSULE PO ×4 (10:18→20:04)
[2021-06-17] MEDS: TAMSULOSIN HCL 0.4 MG CAPSULE PO (10:18)
[2021-06-17] MEDS: BUMETANIDE INJ 2.5 MG/10 ML VIAL 2 MG IV PUSH ×2 (10:19→18:20)
[2021-06-17] MEDS: METOPROLOL TARTRATE 50 MG TAB PO ×2 (10:19→20:05)
[2021-06-17] MEDS: LACTIC ACID 12% LOTION 225 BTL 1 APPLIC TOPICAL (10:20)
[2021-06-17] MEDS: TOLNAFTATE 1% POWDER 45 GM BTL 1 APPLIC TOPICAL ×2 (10:20→20:38)
[2021-06-17] MEDS: FLUTICASONE PROPIONATE 0.05% NA SPR 16 GM BTL (*BKC) 1 SPRAY NASAL (10:22)
[2021-06-17] MEDS: polyethylene glycoL 3350 17 GM POWD.PACK PO (10:22)
[2021-06-17] MEDS: POTASSIUM CHLORIDE 20 MEQ TABLET 40 MEQ PO (10:25)
--- NOTE | 2021-06-17 11:07 | PM.PNCARD ---
Progress Note: A&P Assessment and Plan (1) Respiratory failure with hypoxia: Qualifiers: Chronicity: acute Qualified Code(s): J96.01 - Acute respiratory failure with hypoxia Code(s): J96.91 - Respiratory failure, unspecified with hypoxia Status: Acute Assessment and Plan: Improved with dialysis and thoracentesis (2) Acute on chronic heart failure with preserved ejection fraction: Code(s): I50.33 - Acute on chronic diastolic (congestive) heart failure Status: Acute Assessment and Plan: Acute right and left heart failure with preserved systolic function. Echo reveals severe RV enlargement and hypokinesis with moderate pulmonary hypertension. CTA was negative for pulmonary embolus. Continue Bumex 2mg IV b.i.d. HTN controlled CHF improved. Discharge planning? OK for discharge from a cardiac perspective. Suspect he will need some rehab. (3) New onset atrial fibrillation: Code(s): I48.91 - Unspecified atrial fibrillation Status: Acute Assessment and Plan: New onset atrial fibrillation, appears paroxysmal on telemetry along with possible intermittent junctional escape rhythm. Currently in sinus rhythm. Heart rate reasonably controlled with metoprolol 50 mg BID. Be cautious with AV orquidea blocking agents given underlying bundle-branch block, intermittent junctional rhythm, and fairly controlled heart rate in atrial fibrillation suggestive of significant underlying conduction system disease. CHADS2 Vasc score 4. A/c with Eliquis 5 mg b.i.d. Continue metoprolol 50 mg BID Continue telemetry. (4) Acute kidney injury superimposed on chronic kidney disease: Code(s): N17.9 - Acute kidney failure, unspecified; N18.9 - Chronic kidney disease, unspecified Status: Acute Assessment and Plan: Started on hemodialysis this admission. Now making good urine on IV Bumex. Dialysis catheter has been removed at this point. (5) Pulmonary hypertension: Code(s): I27.20 - Pulmonary hypertension, unspecified Status: Acute Assessment and Plan: Consistent with cor pulmonale. Moderate severity RVSP 51 mm Hg similar to prior echo June 2020. RV enlargement hypokinesis also similar. Lower extremity Dopplers negative for DVT. CT negative for PE (6) Essential (primary) hypertension: Code(s): I10 - Essential (primary) hypertension Status: Acute Assessment and Plan: Controlled. (7) AMELIA (obstructive sleep apnea): Code(s): G47.33 - Obstructive sleep apnea (adult) (pediatric) Status: Acute Assessment and Plan: compliance with BiPAP. (8) Lymphedema of both lower extremities: Code(s): I89.0 - Lymphedema, not elsewhere classified Status: Acute Assessment and Plan: Chronic. DVT prophylaxis. Wound care. Jayesh wraps. No DVT on lower extremity venous Dopplers. (9) Hypokalemia: Code(s): E87.6 - Hypokalemia Status: Acute Assessment and Plan: KCL 40 mEq p.o. x1 because his potassium is low and he is receiving high-dose IV Bumex Subjective Date/time seen: 06/17/21 11:07 Interval history: Cardiology follow up for CHF, Afib 06/09/2021: Feels about the same today, breathing slightly more labored. States he feels like someone is sitting on his chest. No other complaints. Discussed plan of care Date of service 06/10/2021: Had thoracentesis with removal of 1 L fluid from the right lung today. Start dialysis with removal of 4000 cc of fluid. Breathing a little better. Telemetry shows probable AFib versus junctional rhythm rate in the 60s, occasional PVCs versus AFib. Underlying rhythm is a RBBB Date of service 06/11/2021: Feeling pretty good, breathing better, had another dialysis treatment today. Dr. Cuenca put a stitch in the dialysis catheter to reduce the bloody oozing. Patient has not been out of bed today, are tears are uncomfortable for him. Tele - a fib r
--- NOTE | 2021-06-17 11:55 | PM.IMPN ---
Progress Note: A&P Assessment and Plan (1) Acute on chronic heart failure: Qualifiers: Heart failure type: unspecified Qualified Code(s): I50.9 - Heart failure, unspecified Code(s): I50.9 - Heart failure, unspecified Status: Acute Assessment and Plan: - Likely causation of pt's acute hypoxic respiratory failure that is improving slowly. - Supplemental oxygen has been decreased to 1.5L. - Continue strict I&O and daily weights. - Status post Right Thoracentesis for pleural effusion. - Pleural fluid positive for MSSA on 06/07/21, continue abx. This is day #5, no sx's of SIRS/Sepsis. - Pleural fluid from 06/10/21 was suggestive of exudative effusion with RBC's and WBC's. Will await culture report. They are pending. - Will continue to monitor with repeat CXR's. 06/13/2021 interval history: patient is 71 O male presented with acute on chronic kidney disease patient seen by Nephrology patient urine output has improved as well as his urine output patient states is feeling much better not a short of breath, and has been working with physical therapy, patient also has a new onset atrial fibrillation seen by cardiology suspect patient has proximal atrial fibrillation being treated with a metoprolol for rate control and anticoagulated with Eliquis, patient remains clinically stable will continue to monitor. 06/14/2021 interval history: patient is 71 y/o male presented with acute on chronic kidney disease patient seen by Nephrology patient urine output has improved as well as his creatinine patient states is feeling much better not a short of breath, and has been working with physical therapy, however today during physical therapy he complain of the pain in his left ankle and has difficulty weight-bearing on the extremity, will do the ankle x-ray and further recommendation to follow, patient also has a new onset atrial fibrillation seen by cardiology suspect patient has proximal atrial fibrillation being treated with a metoprolol for rate control and anticoagulated with Eliquis, patient remains clinically stable will continue to monitor. 06/15/2021 interval history: patient is 71 y/o male presented with acute on chronic kidney disease patient seen by Nephrology patient urine output has improved as well as his creatinine, initial plan was patient may need dailysis and cathter placed, now patient is urinating well and his creatinine is back to normal, medical receptionist medical assistant recommending to remove the dialysis catheter, patient states is feeling much better not as short of breath, and has been working with physical therapy, however on 315 during physical therapy he complain of the pain in his left ankle and has difficulty weight-bearing on the extremity, the ankle x-ray showed mild arthritis, today patient includes little better, he will work with PT OT, patient also has a new onset atrial fibrillation seen by cardiology suspect patient has proximal atrial fibrillation being treated with a metoprolol for rate control and anticoagulated with Eliquis, patient remains clinically stable will continue to monitor. 06/16/2021 interval history: Patient remains clinically stable has no new complete, waiting to be transferred to nursing pending except will continue to monitor. 06/17/2021 interval history: Patient remains clinically stable has no new complaints, today patient states he was able to get out of the bed and walk to commode, and currently sitting in the bed, later today he will walk with the PT, will continue to monitor [facility] pending [facility] will continue to monitor. (2) Morbid obesity with BMI of 50.0-59.9, adult: Code(s): E66.01 - Morbid (severe) obesity due to excess calories; Z68.43 - Body mass index [BMI] 50.0-59.9, adult Status: Acute Assessment and Plan: - Lifestyle changes as much as possible at discharge. (3) Chronic venous insufficiency: Code(s): I87.2 - Venou
[2021-06-18] VITALS (12 sets, daily range): BP systolic 121–140; BP diastolic 63–70; PULSE 61–70; RESP 16–18; TEMP 35.7–36.5; O2SAT 93–100
[2021-06-18] MEDS: LEVOTHYROXINE SODIUM 25 MCG TABLET PO (05:38)
[2021-06-18] MEDS: LEVOTHYROXINE SODIUM 100 MCG TABLET 200 MCG PO (05:39)
[2021-06-18 06:30] LABS: Albumin Level 3.2 g/dL (3.5-5.1); Anion Gap 5 mmol/L (8-16); Blood Urea Nitrogen 11 mg/dL (9-20); Calcium 8.1 mg/dL (8.4-10.2); Carbon Dioxide 39 mmol/L (22-30); Chloride 93 mmol/L (98-107); Estimated CRCL calculation 76 ml/min; Estimated Glomerular Filt Rate 54; Glucose 87 mg/dL (65-110); Magnesium 1.8 mg/dL (1.6-2.3); Phosphorus 3.1 mg/dL (2.5-4.5); Potassium 3.2 mmol/L (3.4-5.0); Sodium 137 mmol/L (137-145)
[2021-06-18] MEDS: BUMETANIDE INJ 2.5 MG/10 ML VIAL 2 MG IV PUSH ×2 (10:09→17:49)
[2021-06-18] MEDS: TAMSULOSIN HCL 0.4 MG CAPSULE PO (10:10)
[2021-06-18] MEDS: GABAPENTIN 300 MG CAPSULE PO ×4 (10:10→20:34)
[2021-06-18] MEDS: METOPROLOL TARTRATE 50 MG TAB PO ×2 (10:10→20:34)
[2021-06-18] MEDS: acetaZOLAMIDE TAB 250 MG TABLET 500 MG PO ×2 (10:10→17:49)
[2021-06-18] MEDS: APIXABAN 5 MG TABLET PO ×2 (10:10→20:34)
[2021-06-18] MEDS: PANTOPRAZOLE 40 MG TABLET PO (10:10)
[2021-06-18] MEDS: LORATADINE 10 MG TABLET PO (10:11)
[2021-06-18] MEDS: POTASSIUM CHLORIDE 20 MEQ TABLET 40 MEQ PO (10:13)
[2021-06-18] MEDS: polyethylene glycoL 3350 17 GM POWD.PACK PO (10:14)
[2021-06-18] MEDS: LACTIC ACID 12% LOTION 225 BTL 1 APPLIC TOPICAL (10:14)
[2021-06-18] MEDS: FLUTICASONE PROPIONATE 0.05% NA SPR 16 GM BTL (*BKC) 1 SPRAY NASAL (10:14)
[2021-06-18] MEDS: TOLNAFTATE 1% POWDER 45 GM BTL 1 APPLIC TOPICAL ×2 (10:15→20:35)
[2021-06-18] MEDS: ACETAMINOPHEN 500 MG TABLET PO (10:24)
--- NOTE | 2021-06-18 10:33 | P.PNNP_ITS ---
Progress Note: A&P Assessment and Plan (1) JENA (acute kidney injury): Code(s): N17.9 - Acute kidney failure, unspecified Status: Acute Assessment and Plan: * multifactorial etiology: * Most this comes down to the following 2 issues: * renal venous hypertension * contrast exposure (renal function was already deteriorating prior to dye use) * Creatinine is still normal * He made 1900cc of urine yesterday. * dialysis catheter is gone. * he is on Bumex and acetazolamide (2) Stage 3a chronic kidney disease: Code(s): N18.31 - Chronic kidney disease, stage 3a Status: Chronic Assessment and Plan: * baseline creatinine runs ~ 1.4 - 1.7mg/dl in the last few years * due to hypertension and chronic pre renal azotemia due to his poorly functioning heart and possibly new liver disease * His creatinine is actually better than usual. * Discharge okay from the kidney standpoint (3) Acute on chronic heart failure: Qualifiers: Heart failure type: unspecified Qualified Code(s): I50.9 - Heart failure, unspecified Code(s): I50.9 - Heart failure, unspecified Status: Acute Assessment and Plan: * as noted by fluid retention, weight gain, and shortness of breath * fluid overload is improving. * Will continue the Bumex 2 mg IV twice a day while here. We can switch to p.o. at discharge or if the creatinine starts to rise whichever comes 1st. Okay from the renal standpoint for discharge whenever he is ready strength souza and heart souza. (4) Respiratory failure with hypoxia: Qualifiers: Chronicity: acute Qualified Code(s): J96.01 - Acute respiratory failure with hypoxia Code(s): J96.91 - Respiratory failure, unspecified with hypoxia Status: Acute Assessment and Plan: * multiple issues could be responsible - worsening CHF versus worsening renal dysfunction versus infection/sepsis versus PE... * CTA of chest noted - no PE but pleural effusions present * using BiPAP PRN and every night. * s/p thoracentesis (on 06/06/21) with 925cc removed - PD fluid culture with Staph but pH is okay and not many wbcs. contaminant? Repeat thoracentesis done yesterday. Cultures done and are no growth today * getting vancomycin (5) New onset atrial fibrillation: Code(s): I48.91 - Unspecified atrial fibrillation Status: Acute Assessment and Plan: * new finding * partly to blame for decline in status/renal function(?) * heart rate 86 * on anticoagulation (6) Hypertension: Code(s): I10 - Essential (primary) hypertension Status: Chronic Assessment and Plan: * systolic running 120-150 * He is on metoprolol only Subjective Date/time seen: 06/18/21 10:33 Interval history: patient is alert. His swelling is a little better. He gets up to the commode with the help of physical therapy or staff. He has not walked yet. He is eager to go back to [facility] to get stronger. Review of Systems Cardiovascular: Cardiovascular: Reports no additional cardiovascular complaints Respiratory: Respiratory: Reports no additional respiratory complaints Gastrointestinal: Gastrointestinal: Reports no additional gastrointestinal complaints Genitourinary: Genitourinary: Reports no additional male genitourinary complaints Exam Narrative: WDWN in NAD skin chronic venous stasis dermatitis head ncat lungs
--- NOTE | 2021-06-18 10:33 | PM.PNNEP ---
Progress Note: A&P Assessment and Plan (1) JENA (acute kidney injury): Code(s): N17.9 - Acute kidney failure, unspecified Status: Acute Assessment and Plan: multifactorial etiology: Most this comes down to the following 2 issues: renal venous hypertension contrast exposure (renal function was already deteriorating prior to dye use) Creatinine is still normal He made 1900cc of urine yesterday. dialysis catheter is gone. he is on Bumex and acetazolamide (2) Stage 3a chronic kidney disease: Code(s): N18.31 - Chronic kidney disease, stage 3a Status: Chronic Assessment and Plan: baseline creatinine runs ~ 1.4 - 1.7mg/dl in the last few years due to hypertension and chronic pre renal azotemia due to his poorly functioning heart and possibly new liver disease His creatinine is actually better than usual. Discharge okay from the kidney standpoint (3) Acute on chronic heart failure: Qualifiers: Heart failure type: unspecified Qualified Code(s): I50.9 - Heart failure, unspecified Code(s): I50.9 - Heart failure, unspecified Status: Acute Assessment and Plan: as noted by fluid retention, weight gain, and shortness of breath fluid overload is improving. Will continue the Bumex 2 mg IV twice a day while here. We can switch to p.o. at discharge or if the creatinine starts to rise whichever comes 1st. Okay from the renal standpoint for discharge whenever he is ready strength suoza and heart souza. (4) Respiratory failure with hypoxia: Qualifiers: Chronicity: acute Qualified Code(s): J96.01 - Acute respiratory failure with hypoxia Code(s): J96.91 - Respiratory failure, unspecified with hypoxia Status: Acute Assessment and Plan: multiple issues could be responsible - worsening CHF versus worsening renal dysfunction versus infection/sepsis versus PE... CTA of chest noted - no PE but pleural effusions present using BiPAP PRN and every night. s/p thoracentesis (on 06/06/21) with 925cc removed - PD fluid culture with Staph but pH is okay and not many wbcs. contaminant? Repeat thoracentesis done yesterday. Cultures done and are no growth today getting vancomycin (5) New onset atrial fibrillation: Code(s): I48.91 - Unspecified atrial fibrillation Status: Acute Assessment and Plan: new finding partly to blame for decline in status/renal function(?) heart rate 86 on anticoagulation (6) Hypertension: Code(s): I10 - Essential (primary) hypertension Status: Chronic Assessment and Plan: systolic running 120-150 He is on metoprolol only Subjective Date/time seen: 06/18/21 10:33 Interval history: patient is alert. His swelling is a little better. He gets up to the commode with the help of physical therapy or staff. He has not walked yet. He is eager to go back to [facility] to get stronger. Review of Systems Cardiovascular: Cardiovascular: Reports no additional cardiovascular complaints Respiratory: Respiratory: Reports no additional respiratory complaints Gastrointestinal: Gastrointestinal: Reports no additional gastrointestinal complaints Genitourinary: Genitourinary: Reports no additional male genitourinary complaints Exam Narrative: WDWN in NAD skin chronic venous stasis dermatitis head ncat lungs clear Bilaterally cor reg no rub abd BS+ nontender and soft ext 2+ edema. Objective Data Vital Signs Vital Signs: Vital Signs - 24 hr 06/17/21 12:00 06/17/21 14:00 06/17/21 16:00 Temperature 36.1 C L Pulse Rate 68 72 72 Respiratory Rate 20 Blood Pressure 127/67 Pulse Oximetry 100 06/17/21 20:00 06/17/21 20:05 06/17/21 22:00 Temperature 36.1 C L Pulse Rate 71 69 67 Respiratory Rate 16 Blood Pressure 139/65 Pulse Oximetry 95 100 06/17/21 22:35 06/18/21 00:00 06/18/21 04:00 Te
--- NOTE | 2021-06-18 12:13 | PM.PNCARD ---
Progress Note: A&P Assessment and Plan (1) Respiratory failure with hypoxia: Qualifiers: Chronicity: acute Qualified Code(s): J96.01 - Acute respiratory failure with hypoxia Code(s): J96.91 - Respiratory failure, unspecified with hypoxia Status: Acute Assessment and Plan: Improved with dialysis and thoracentesis (2) Acute on chronic heart failure with preserved ejection fraction: Code(s): I50.33 - Acute on chronic diastolic (congestive) heart failure Status: Acute Assessment and Plan: Acute right and left heart failure with preserved systolic function. Echo reveals severe RV enlargement and hypokinesis with moderate pulmonary hypertension. CTA was negative for pulmonary embolus. Continue Bumex 2mg IV b.i.d. HTN controlled CHF improved. Discharge planning? OK for discharge from a cardiac perspective. Suspect he will need some rehab. (3) New onset atrial fibrillation: Code(s): I48.91 - Unspecified atrial fibrillation Status: Acute Assessment and Plan: New onset atrial fibrillation, appears paroxysmal on telemetry along with possible intermittent junctional escape rhythm. Currently in sinus rhythm. Heart rate reasonably controlled with metoprolol 50 mg BID. Be cautious with AV orquidea blocking agents given underlying bundle-branch block, intermittent junctional rhythm, and fairly controlled heart rate in atrial fibrillation suggestive of significant underlying conduction system disease. CHADS2 Vasc score 4. A/c with Eliquis 5 mg b.i.d. Continue metoprolol 50 mg BID Continue telemetry. (4) Acute kidney injury superimposed on chronic kidney disease: Code(s): N17.9 - Acute kidney failure, unspecified; N18.9 - Chronic kidney disease, unspecified Status: Acute Assessment and Plan: Started on hemodialysis this admission. Now making good urine on IV Bumex. Dialysis catheter has been removed at this point. (5) Pulmonary hypertension: Code(s): I27.20 - Pulmonary hypertension, unspecified Status: Acute Assessment and Plan: Consistent with cor pulmonale. Moderate severity RVSP 51 mm Hg similar to prior echo June 2020. RV enlargement hypokinesis also similar. Lower extremity Dopplers negative for DVT. CT negative for PE (6) Essential (primary) hypertension: Code(s): I10 - Essential (primary) hypertension Status: Acute Assessment and Plan: Controlled. (7) AMELIA (obstructive sleep apnea): Code(s): G47.33 - Obstructive sleep apnea (adult) (pediatric) Status: Acute Assessment and Plan: compliance with BiPAP. (8) Lymphedema of both lower extremities: Code(s): I89.0 - Lymphedema, not elsewhere classified Status: Acute Assessment and Plan: Chronic. DVT prophylaxis. Wound care. Jayesh wraps. No DVT on lower extremity venous Dopplers. (9) Hypokalemia: Code(s): E87.6 - Hypokalemia Status: Acute Assessment and Plan: KCL 40 mEq p.o. x1. Magnesium 2 g IV x1 Subjective Date/time seen: 06/18/21 12:13 Interval history: Cardiology follow up for CHF, Afib 06/09/2021: Feels about the same today, breathing slightly more labored. States he feels like someone is sitting on his chest. No other complaints. Discussed plan of care Date of service 06/10/2021: Had thoracentesis with removal of 1 L fluid from the right lung today. Start dialysis with removal of 4000 cc of fluid. Breathing a little better. Telemetry shows probable AFib versus junctional rhythm rate in the 60s, occasional PVCs versus AFib. Underlying rhythm is a RBBB Date of service 06/11/2021: Feeling pretty good, breathing better, had another dialysis treatment today. Dr. Cuenca put a stitch in the dialysis catheter to reduce the bloody oozing. Patient has not been out of bed today, are tears are uncomfortable for him. Tele - a fib rate 60's. Date of service 06/12/2021: Comp
--- NOTE | 2021-06-18 12:20 | PM.IMPN ---
Progress Note: A&P Assessment and Plan (1) Acute on chronic heart failure: Qualifiers: Heart failure type: unspecified Qualified Code(s): I50.9 - Heart failure, unspecified Code(s): I50.9 - Heart failure, unspecified Status: Acute Assessment and Plan: - Likely causation of pt's acute hypoxic respiratory failure that is improving slowly. - Supplemental oxygen has been decreased to 1.5L. - Continue strict I&O and daily weights. - Status post Right Thoracentesis for pleural effusion. - Pleural fluid positive for MSSA on 06/07/21, continue abx. This is day #5, no sx's of SIRS/Sepsis. - Pleural fluid from 06/10/21 was suggestive of exudative effusion with RBC's and WBC's. Will await culture report. They are pending. - Will continue to monitor with repeat CXR's. 06/13/2021 interval history: patient is 71 O male presented with acute on chronic kidney disease patient seen by Nephrology patient urine output has improved as well as his urine output patient states is feeling much better not a short of breath, and has been working with physical therapy, patient also has a new onset atrial fibrillation seen by cardiology suspect patient has proximal atrial fibrillation being treated with a metoprolol for rate control and anticoagulated with Eliquis, patient remains clinically stable will continue to monitor. 06/14/2021 interval history: patient is 71 y/o male presented with acute on chronic kidney disease patient seen by Nephrology patient urine output has improved as well as his creatinine patient states is feeling much better not a short of breath, and has been working with physical therapy, however today during physical therapy he complain of the pain in his left ankle and has difficulty weight-bearing on the extremity, will do the ankle x-ray and further recommendation to follow, patient also has a new onset atrial fibrillation seen by cardiology suspect patient has proximal atrial fibrillation being treated with a metoprolol for rate control and anticoagulated with Eliquis, patient remains clinically stable will continue to monitor. 06/15/2021 interval history: patient is 71 y/o male presented with acute on chronic kidney disease patient seen by Nephrology patient urine output has improved as well as his creatinine, initial plan was patient may need dailysis and cathter placed, now patient is urinating well and his creatinine is back to normal, nurse healthcare manager recommending to remove the dialysis catheter, patient states is feeling much better not as short of breath, and has been working with physical therapy, however on 315 during physical therapy he complain of the pain in his left ankle and has difficulty weight-bearing on the extremity, the ankle x-ray showed mild arthritis, today patient includes little better, he will work with PT OT, patient also has a new onset atrial fibrillation seen by cardiology suspect patient has proximal atrial fibrillation being treated with a metoprolol for rate control and anticoagulated with Eliquis, patient remains clinically stable will continue to monitor. 06/16/2021 interval history: Patient remains clinically stable has no new complete, waiting to be transferred to nursing pending except will continue to monitor. 06/17/2021 interval history: Patient remains clinically stable has no new complaints, today patient states he was able to get out of the bed and walk to commode, and currently sitting in the bed, later today he will walk with the PT, will continue to monitor [facility] will continue to monitor. 06/18/2021 interval history: Patient remains clinically stable has no new complaints, on 06/17 patient was able to get out of the bed and walk to commode, and currently sitting in the bed, later today he walked with the PT, however today patient states is not feeling well does not want to get out of the bed, will encourage patient to par
[2021-06-18] MEDS: MAGNESIUM SULF 2 GM/WATER 50ML 2 GM/50 ML BAG IVPB (13:28)
[2021-06-18] MEDS: WATER FOR IRRIGATION, STERILE 1,000 ML BOTTLE 1000 ML (21:00)
[2021-06-19] VITALS (15 sets, daily range): BP systolic 116–133; BP diastolic 57–72; PULSE 64–72; RESP 16–20; TEMP 35.6–37.7; O2SAT 97–100
[2021-06-19] MEDS: LEVOTHYROXINE SODIUM 100 MCG TABLET 200 MCG PO (05:26)
[2021-06-19] MEDS: LEVOTHYROXINE SODIUM 25 MCG TABLET PO (05:27)
[2021-06-19 05:53] LABS: Hematocrit 36.5 % (42.0-52.0); Hemoglobin 10.5 g/dL (14.0-18.0); Mean Corpuscular HGB Conc 28.8 g/dl (32-36); Mean Corpuscular Hemoglobin 26.5 pg (26-34); Mean Corpuscular Volume 92.2 fl (80-100); Mean Platelet Volume 10.5 fl (7.4-10.4); Platelet Count Result 413 k/mm3 (150-375); Red Blood Count 3.96 M/mm3 (4.6-6.20); Red Cell Distribution Width 16.3 % (11.5-14.5); White Blood Count 7.1 K/mm3 (4.5-10.0)
[2021-06-19 06:02] LABS: Albumin Level 3.3 g/dL (3.5-5.1); Anion Gap 5 mmol/L (8-16); Blood Urea Nitrogen 12 mg/dL (9-20); Calcium 8.5 mg/dL (8.4-10.2); Carbon Dioxide 37 mmol/L (22-30); Chloride 95 mmol/L (98-107); Estimated CRCL calculation 76 ml/min; Estimated Glomerular Filt Rate 54; Glucose 87 mg/dL (65-110); Magnesium 2.1 mg/dL (1.6-2.3); Phosphorus 3.7 mg/dL (2.5-4.5); Potassium 3.2 mmol/L (3.4-5.0); Sodium 137 mmol/L (137-145)
[2021-06-19] MEDS: GABAPENTIN 300 MG CAPSULE PO ×4 (08:12→20:48)
[2021-06-19] MEDS: TAMSULOSIN HCL 0.4 MG CAPSULE PO (08:12)
[2021-06-19] MEDS: polyethylene glycoL 3350 17 GM POWD.PACK PO (08:12)
[2021-06-19] MEDS: acetaZOLAMIDE TAB 250 MG TABLET 500 MG PO ×2 (08:13→17:02)
[2021-06-19] MEDS: PANTOPRAZOLE 40 MG TABLET PO (08:13)
[2021-06-19] MEDS: METOPROLOL TARTRATE 50 MG TAB PO ×2 (08:13→20:48)
[2021-06-19] MEDS: LORATADINE 10 MG TABLET PO (08:13)
[2021-06-19] MEDS: FLUTICASONE PROPIONATE 0.05% NA SPR 16 GM BTL (*BKC) 1 SPRAY NASAL (08:14)
[2021-06-19] MEDS: BUMETANIDE INJ 2.5 MG/10 ML VIAL 2 MG IV PUSH ×2 (08:14→17:02)
[2021-06-19] MEDS: LACTIC ACID 12% LOTION 225 BTL 1 APPLIC TOPICAL (08:14)
[2021-06-19] MEDS: APIXABAN 5 MG TABLET PO ×2 (08:14→20:48)
[2021-06-19] MEDS: TOLNAFTATE 1% POWDER 45 GM BTL 1 APPLIC TOPICAL ×2 (08:14→20:50)
--- NOTE | 2021-06-19 10:44 | PM.PNCARD ---
Progress Note: A&P Assessment and Plan (1) Respiratory failure with hypoxia: Qualifiers: Chronicity: acute Qualified Code(s): J96.01 - Acute respiratory failure with hypoxia Code(s): J96.91 - Respiratory failure, unspecified with hypoxia Status: Acute Assessment and Plan: Improved with dialysis and thoracentesis (2) Acute on chronic heart failure with preserved ejection fraction: Code(s): I50.33 - Acute on chronic diastolic (congestive) heart failure Status: Acute Assessment and Plan: Acute right and left heart failure with preserved systolic function. Echo reveals severe RV enlargement and hypokinesis with moderate pulmonary hypertension. CTA was negative for pulmonary embolus. Continue Bumex 2mg IV b.i.d. HTN controlled CHF improved. (3) New onset atrial fibrillation: Code(s): I48.91 - Unspecified atrial fibrillation Status: Acute Assessment and Plan: New onset atrial fibrillation, appears paroxysmal on telemetry along with possible intermittent junctional escape rhythm. Currently in sinus rhythm. Heart rate reasonably controlled with metoprolol 50 mg BID. Be cautious with AV orquidea blocking agents given underlying bundle-branch block, intermittent junctional rhythm, and fairly controlled heart rate in atrial fibrillation suggestive of significant underlying conduction system disease. CHADS2 Vasc score 4. A/c with Eliquis 5 mg b.i.d. Continue metoprolol 50 mg BID Continue telemetry. (4) Acute kidney injury superimposed on chronic kidney disease: Code(s): N17.9 - Acute kidney failure, unspecified; N18.9 - Chronic kidney disease, unspecified Status: Acute Assessment and Plan: Started on hemodialysis this admission. Now making good urine on IV Bumex. Dialysis catheter has been removed at this point. (5) Pulmonary hypertension: Code(s): I27.20 - Pulmonary hypertension, unspecified Status: Acute Assessment and Plan: Consistent with cor pulmonale. Moderate severity RVSP 51 mm Hg similar to prior echo June 2020. RV enlargement hypokinesis also similar. Lower extremity Dopplers negative for DVT. CT negative for PE (6) Essential (primary) hypertension: Code(s): I10 - Essential (primary) hypertension Status: Acute Assessment and Plan: Controlled. (7) AMELIA (obstructive sleep apnea): Code(s): G47.33 - Obstructive sleep apnea (adult) (pediatric) Status: Acute Assessment and Plan: compliance with BiPAP. (8) Lymphedema of both lower extremities: Code(s): I89.0 - Lymphedema, not elsewhere classified Status: Acute Assessment and Plan: Chronic. DVT prophylaxis. Wound care. Jayesh wraps. No DVT on lower extremity venous Dopplers. (9) Hypokalemia: Code(s): E87.6 - Hypokalemia Status: Acute Assessment and Plan: Additional 40 mEq p.o. potassium x1 beyond what is already being given Subjective Date/time seen: 06/19/21 10:44 Interval history: Cardiology follow up for CHF, Afib 06/09/2021: Feels about the same today, breathing slightly more labored. States he feels like someone is sitting on his chest. No other complaints. Discussed plan of care Date of service 06/10/2021: Had thoracentesis with removal of 1 L fluid from the right lung today. Start dialysis with removal of 4000 cc of fluid. Breathing a little better. Telemetry shows probable AFib versus junctional rhythm rate in the 60s, occasional PVCs versus AFib. Underlying rhythm is a RBBB Date of service 06/11/2021: Feeling pretty good, breathing better, had another dialysis treatment today. Dr. Cuenca put a stitch in the dialysis catheter to reduce the bloody oozing. Patient has not been out of bed today, are tears are uncomfortable for him. Tele - a fib rate 60's. Date of service 06/12/2021: Complaining of shortness of breath this morning. States that last night
[2021-06-19] MEDS: POTASSIUM CHLORIDE 20 MEQ TABLET 40 MEQ PO (12:25)
[2021-06-19 12:28] LABS: Vancomycin Trough 12.5 ug/mL (10.0-20.0)
[2021-06-19 12:46] LABS: EDCOVIDSCREEN Negative (Negative)
--- NOTE | 2021-06-19 13:31 | PM.DS ---
DS: Discharge Diagnosis Discharge Diagnosis (1) Acute on chronic heart failure: Qualifiers: Heart failure type: unspecified Qualified Code(s): I50.9 - Heart failure, unspecified Code(s): I50.9 - Heart failure, unspecified Status: Acute Assessment and Plan: - Likely causation of pt's acute hypoxic respiratory failure that is improving slowly. - Supplemental oxygen has been decreased to 1.5L. - Continue strict I&O and daily weights. - Status post Right Thoracentesis for pleural effusion. - Pleural fluid positive for MSSA on 06/07/21, continue abx. This is day #5, no sx's of SIRS/Sepsis. - Pleural fluid from 06/10/21 was suggestive of exudative effusion with RBC's and WBC's. Will await culture report. They are pending. - Will continue to monitor with repeat CXR's. 06/13/2021 interval history: patient is 71 O male presented with acute on chronic kidney disease patient seen by Nephrology patient urine output has improved as well as his urine output patient states is feeling much better not a short of breath, and has been working with physical therapy, patient also has a new onset atrial fibrillation seen by cardiology suspect patient has proximal atrial fibrillation being treated with a metoprolol for rate control and anticoagulated with Eliquis, patient remains clinically stable will continue to monitor. 06/14/2021 interval history: patient is 71 y/o male presented with acute on chronic kidney disease patient seen by Nephrology patient urine output has improved as well as his creatinine patient states is feeling much better not a short of breath, and has been working with physical therapy, however today during physical therapy he complain of the pain in his left ankle and has difficulty weight-bearing on the extremity, will do the ankle x-ray and further recommendation to follow, patient also has a new onset atrial fibrillation seen by cardiology suspect patient has proximal atrial fibrillation being treated with a metoprolol for rate control and anticoagulated with Eliquis, patient remains clinically stable will continue to monitor. 06/15/2021 interval history: patient is 71 y/o male presented with acute on chronic kidney disease patient seen by Nephrology patient urine output has improved as well as his creatinine, initial plan was patient may need dailysis and cathter placed, now patient is urinating well and his creatinine is back to normal, vegetable buncher recommending to remove the dialysis catheter, patient states is feeling much better not as short of breath, and has been working with physical therapy, however on 315 during physical therapy he complain of the pain in his left ankle and has difficulty weight-bearing on the extremity, the ankle x-ray showed mild arthritis, today patient includes little better, he will work with PT OT, patient also has a new onset atrial fibrillation seen by cardiology suspect patient has proximal atrial fibrillation being treated with a metoprolol for rate control and anticoagulated with Eliquis, patient remains clinically stable will continue to monitor. 06/16/2021 interval history: Patient remains clinically stable has no new complete, waiting to be transferred to nursing pending except will continue to monitor. 06/17/2021 interval history: Patient remains clinically stable has no new complaints, today patient states he was able to get out of the bed and walk to commode, and currently sitting in the bed, later today he will walk with the PT, will continue to monitor waiting to be transferred to shelter pending authorization will continue to monitor. 06/18/2021 interval history: Patient remains clinically stable has no new complaints, on 06/17 patient was able to get out of the bed and walk to commode, and currently sitting in the bed, later today he walked with the PT, however today patient states is not feeling well does not want to get out of the bed, will encourage patient t
--- NOTE | 2021-06-19 15:26 | PM.PNNEP ---
Progress Note: A&P Assessment and Plan (1) JENA (acute kidney injury): Code(s): N17.9 - Acute kidney failure, unspecified Status: Acute Assessment and Plan: due to: renal venous hypertension contrast exposure (renal function was already deteriorating prior to dye use) creatinine stable if not better than baseline reasonable urine output noted dialysis has been discontinued remains on diuretic therapy (2) Stage 3a chronic kidney disease: Code(s): N18.31 - Chronic kidney disease, stage 3a Status: Chronic Assessment and Plan: baseline creatinine runs ~ 1.4 - 1.7mg/dl in the last few years due to hypertension and chronic pre renal azotemia due to his poorly functioning heart and possibly new liver disease creatinine is actually better than baseline (3) Acute on chronic heart failure: Qualifiers: Heart failure type: unspecified Qualified Code(s): I50.9 - Heart failure, unspecified Code(s): I50.9 - Heart failure, unspecified Status: Acute Assessment and Plan: as noted by fluid retention, weight gain, and shortness of breath fluid overload/status is improving continue the Bumex 2 mg IV bid while hospitalized switch to oral bumex on discharge or if the creatinine starts to rise - whichever comes 1st (4) Respiratory failure with hypoxia: Qualifiers: Chronicity: acute Qualified Code(s): J96.01 - Acute respiratory failure with hypoxia Code(s): J96.91 - Respiratory failure, unspecified with hypoxia Status: Acute Assessment and Plan: multiple issues could be responsible - worsening CHF versus worsening renal dysfunction versus infection/sepsis versus PE... CTA of chest noted - no PE but pleural effusions present using BiPAP PRN and every night. s/p thoracentesis (on 06/06/21) with 925cc removed - PD fluid culture with Staph but pH is okay and not many wbcs. contaminant? Repeat thoracentesis done yesterday. Cultures done and are no growth today getting vancomycin (5) New onset atrial fibrillation: Code(s): I48.91 - Unspecified atrial fibrillation Status: Acute Assessment and Plan: new finding partly to blame for decline in status/renal function(?) rate control strategy on anticoagulation (6) Hypertension: Code(s): I10 - Essential (primary) hypertension Status: Chronic Assessment and Plan: reasonable control follow trend of hemodynamics on metoprolol only Okay for discharge from renal perspective when otherwise medically stable Will continue to follow Subjective Date/time seen: 06/19/21 15:26 Chart reviewed since last seen - assuming care from Dr. Al; dialysis has been discontinued and remains on diuretic therapy with stable (if not better than baseline) renal function/creatinine; no other acute issues/complaints voiced at this time; no events overnight or earlier this AM. Exam Narrative: General: WD/WN male in NAD Heart: normal S1 and S2; no rub Lungs: clear to auscultation Abdomen: soft, nontender, nondistended, positive bowel sounds Extremities: no cyanosis or clubbing; 2+ edema Skin: chronic venous stasis dermatitis Objective Data Vital Signs Vital Signs: Vital Signs Temp Pulse Resp BP Pulse Ox 06/19/21 14:00 35.6 C L 69 20 116/57 L 100 06/19/21 08:13 72 06/19/21 08:00 70 06/19/21 06:00 36.4 C L 69 18 133/63 97 06/19/21 04:00 66 06/19/21 00:00 69 06/18/21 21:56 36.5 C 69 18 137/63 98 06/18/21 21:05 69 96 06/18/21 20:00 68 95 Intake/Output Intake/Output: Intake & Output 06/16/21 06/17/21 06/18/21 06/19/21 23:59 23:59 23:59 23:59 Intake Total 2690 1370 1930 572 Output Total 4500 1900 2250 1375 Balance -1810 -530 -320 -803 Meds/Results Medications: Active Medications Generic Name Dose Route Start Last Admin Trade Name Freq PRN Reason Stop Dose Admi
--- NOTE | 2021-06-19 15:26 | P.PNNP_ITS ---
Progress Note: A&P Assessment and Plan (1) JENA (acute kidney injury): Code(s): N17.9 - Acute kidney failure, unspecified Status: Acute Assessment and Plan: * due to: * renal venous hypertension * contrast exposure (renal function was already deteriorating prior to dye use) * creatinine stable if not better than baseline * reasonable urine output noted * dialysis has been discontinued * remains on diuretic therapy (2) Stage 3a chronic kidney disease: Code(s): N18.31 - Chronic kidney disease, stage 3a Status: Chronic Assessment and Plan: * baseline creatinine runs ~ 1.4 - 1.7mg/dl in the last few years * due to hypertension and chronic pre renal azotemia due to his poorly functioning heart and possibly new liver disease * creatinine is actually better than baseline (3) Acute on chronic heart failure: Qualifiers: Heart failure type: unspecified Qualified Code(s): I50.9 - Heart failure, unspecified Code(s): I50.9 - Heart failure, unspecified Status: Acute Assessment and Plan: * as noted by fluid retention, weight gain, and shortness of breath * fluid overload/status is improving * continue the Bumex 2 mg IV bid while hospitalized * switch to oral bumex on discharge or if the creatinine starts to rise - whichever comes 1st (4) Respiratory failure with hypoxia: Qualifiers: Chronicity: acute Qualified Code(s): J96.01 - Acute respiratory failure with hypoxia Code(s): J96.91 - Respiratory failure, unspecified with hypoxia Status: Acute Assessment and Plan: * multiple issues could be responsible - worsening CHF versus worsening renal dysfunction versus infection/sepsis versus PE... * CTA of chest noted - no PE but pleural effusions present * using BiPAP PRN and every night. * s/p thoracentesis (on 06/06/21) with 925cc removed - PD fluid culture with Staph but pH is okay and not many wbcs. contaminant? Repeat thoracentesis done yesterday. Cultures done and are no growth today * getting vancomycin (5) New onset atrial fibrillation: Code(s): I48.91 - Unspecified atrial fibrillation Status: Acute Assessment and Plan: * new finding * partly to blame for decline in status/renal function(?) * rate control strategy * on anticoagulation (6) Hypertension: Code(s): I10 - Essential (primary) hypertension Status: Chronic Assessment and Plan: * reasonable control * follow trend of hemodynamics * on metoprolol only Okay for discharge from renal perspective when otherwise medically stable Will continue to follow Subjective Date/time seen: 06/19/21 15:26 Chart reviewed since last seen - assuming care from Dr. Al; dialysis has been discontinued and remains on diuretic therapy with stable (if not better than baseline) renal function/creatinine; no other acute issues/complaints voiced at this time; no events overnight or earlier this AM. Exam Narrative: General: WD/WN male in NAD Heart: normal S1 and S2; no rub Lungs: clear to auscultation Abdomen: soft, nontender, nondistended, positive bowel sounds Extremities: no cyanosis or clubbing; 2+ edema Skin: chronic venous stasis dermatitis Objective Data Vital Signs Vital Signs: Vital Signs Temp Pulse Resp BP Pulse Ox 06/19/21 14:00 35.6 C L 69 20 116/57 L 100 06/19/21 08:13 72
--- NOTE | 2021-06-19 16:09 | P.PNIM_ITS ---
Progress Note: A&P Assessment and Plan (1) Acute on chronic heart failure: Qualifiers: Heart failure type: unspecified Qualified Code(s): I50.9 - Heart failure, unspecified Code(s): I50.9 - Heart failure, unspecified Status: Acute Assessment and Plan: - Likely causation of pt's acute hypoxic respiratory failure that is improving slowly. - Supplemental oxygen has been decreased to 1.5L. - Continue strict I&O and daily weights. - Status post Right Thoracentesis for pleural effusion. - Pleural fluid positive for MSSA on 06/07/21, continue abx. This is day #5, no sx's of SIRS/Sepsis. - Pleural fluid from 06/10/21 was suggestive of exudative effusion with RBC's and WBC's. Will await culture report. They are pending. - Will continue to monitor with repeat CXR's. 06/13/2021 interval history: patient is 71 O male presented with acute on chronic kidney disease patient seen by Nephrology patient urine output has improved as well as his urine output patient states is feeling much better not a short of breath, and has been working with physical therapy, patient also has a new onset atrial fibrillation seen by cardiology suspect patient has proximal atrial fibrillation being treated with a metoprolol for rate control and anticoagulated with Eliquis, patient remains clinically stable will continue to monitor. 06/14/2021 interval history: patient is 71 y/o male presented with acute on chronic kidney disease patient seen by Nephrology patient urine output has improved as well as his creatinine patient states is feeling much better not a short of breath, and has been working with physical therapy, however today during physical therapy he complain of the pain in his left ankle and has difficulty weight-bearing on the extremity, will do the ankle x-ray and further recommendation to follow, patient also has a new onset atrial fibrillation seen by cardiology suspect patient has proximal atrial fibrillation being treated with a metoprolol for rate control and anticoagulated with Eliquis, patient remains clinically stable will continue to monitor. 06/15/2021 interval history: patient is 71 y/o male presented with acute on chronic kidney disease patient seen by Nephrology patient urine output has improved as well as his creatinine, initial plan was patient may need dailysis and cathter placed, now patient is urinating well and his creatinine is back to normal, hand quilter recommending to remove the dialysis catheter, patient states is feeling much better not as short of breath, and has been working with physical therapy, however on 315 during physical therapy he complain of the pain in his left ankle and has difficulty weight-bearing on the extremity, the ankle x-ray showed mild arthritis, today patient includes little better, he will work with PT OT, patient also has a new onset atrial fibrillation seen by cardiology suspect patient has proximal atrial fibrillation being treated with a metoprolol for rate control and anticoagulated with Eliquis, patient remains clinically stable will continue to monitor. 06/16/2021 interval history: Patient remains clinically stable has no new complete, waiting to be transferred to nursing pending except will continue to monitor. 06/17/2021 interval history: Patient remains clinically stable has no new complaints, today patient states he was able to get out of the bed and walk to commode, and currently sitting in the bed, later today he will walk with the PT, will continue to monitor waiting to be transferred to long term pending authorization will continue to monitor. 06/18/2021 interval history: Patient remains clinically stable has no new complaints, on 06/17 pat
[2021-06-19] MEDS: ACETAMINOPHEN 500 MG TABLET PO (20:48)
[2021-06-20] VITALS (12 sets, daily range): BP systolic 101–136; BP diastolic 55–67; PULSE 65–109; RESP 16–20; TEMP 36.2–37.1; O2SAT 96–100
[2021-06-20] MEDS: LEVOTHYROXINE SODIUM 100 MCG TABLET 200 MCG PO (05:59)
[2021-06-20] MEDS: LEVOTHYROXINE SODIUM 25 MCG TABLET PO (05:59)
[2021-06-20 06:35] LABS: Albumin Level 3.4 g/dL (3.5-5.1); Anion Gap 5 mmol/L (8-16); Blood Urea Nitrogen 13 mg/dL (9-20); Calcium 8.5 mg/dL (8.4-10.2); Carbon Dioxide 34 mmol/L (22-30); Chloride 97 mmol/L (98-107); Estimated CRCL calculation 75 ml/min; Estimated Glomerular Filt Rate 54; Glucose 86 mg/dL (65-110); Magnesium 2.1 mg/dL (1.6-2.3); Phosphorus 4.2 mg/dL (2.5-4.5); Potassium 3.4 mmol/L (3.4-5.0); Sodium 136 mmol/L (137-145)
[2021-06-20] MEDS: METOPROLOL TARTRATE 50 MG TAB PO ×2 (08:00→20:20)
[2021-06-20] MEDS: BUMETANIDE INJ 2.5 MG/10 ML VIAL 2 MG IV PUSH ×2 (08:00→16:46)
[2021-06-20] MEDS: TAMSULOSIN HCL 0.4 MG CAPSULE PO (08:00)
[2021-06-20] MEDS: PANTOPRAZOLE 40 MG TABLET PO (08:00)
[2021-06-20] MEDS: APIXABAN 5 MG TABLET PO ×2 (08:01→20:20)
[2021-06-20] MEDS: LORATADINE 10 MG TABLET PO (08:01)
[2021-06-20] MEDS: acetaZOLAMIDE TAB 250 MG TABLET 500 MG PO ×2 (08:01→16:46)
[2021-06-20] MEDS: TOLNAFTATE 1% POWDER 45 GM BTL 1 APPLIC TOPICAL ×2 (08:01→20:20)
[2021-06-20] MEDS: polyethylene glycoL 3350 17 GM POWD.PACK PO (08:01)
[2021-06-20] MEDS: FLUTICASONE PROPIONATE 0.05% NA SPR 16 GM BTL (*BKC) 1 SPRAY NASAL (08:01)
[2021-06-20] MEDS: GABAPENTIN 300 MG CAPSULE PO ×4 (08:01→20:20)
[2021-06-20] MEDS: LACTIC ACID 12% LOTION 225 BTL 1 APPLIC TOPICAL (08:01)
--- NOTE | 2021-06-20 10:41 | PM.PNCARD ---
Progress Note: A&P Assessment and Plan (1) Respiratory failure with hypoxia: Qualifiers: Chronicity: acute Qualified Code(s): J96.01 - Acute respiratory failure with hypoxia Code(s): J96.91 - Respiratory failure, unspecified with hypoxia Status: Acute Assessment and Plan: Improved with dialysis and thoracentesis and now diuresis (2) Acute on chronic heart failure with preserved ejection fraction: Code(s): I50.33 - Acute on chronic diastolic (congestive) heart failure Status: Acute Assessment and Plan: Acute right and left heart failure with preserved systolic function. Echo reveals severe RV enlargement and hypokinesis with moderate pulmonary hypertension. CTA was negative for pulmonary embolus. Continue Bumex 2mg IV b.i.d. HTN controlled CHF improved. (3) New onset atrial fibrillation: Code(s): I48.91 - Unspecified atrial fibrillation Status: Acute Assessment and Plan: New onset atrial fibrillation, appears paroxysmal on telemetry along with possible intermittent junctional escape rhythm. Currently in sinus rhythm. Heart rate reasonably controlled with metoprolol 50 mg BID. Be cautious with AV orquidea blocking agents given underlying bundle-branch block, intermittent junctional rhythm, and fairly controlled heart rate in atrial fibrillation suggestive of significant underlying conduction system disease. CHADS2 Vasc score 4. A/c with Eliquis 5 mg b.i.d. Continue metoprolol 50 mg BID Continue telemetry. (4) Acute kidney injury superimposed on chronic kidney disease: Code(s): N17.9 - Acute kidney failure, unspecified; N18.9 - Chronic kidney disease, unspecified Status: Acute Assessment and Plan: Started on hemodialysis this admission. Now making good urine on IV Bumex. Dialysis catheter has been removed at this point. (5) Pulmonary hypertension: Code(s): I27.20 - Pulmonary hypertension, unspecified Status: Acute Assessment and Plan: Consistent with cor pulmonale. Moderate severity RVSP 51 mm Hg similar to prior echo June 2020. RV enlargement hypokinesis also similar. Lower extremity Dopplers negative for DVT. CT negative for PE . Will check an EKG now because of his afternoon chest pain (6) Essential (primary) hypertension: Code(s): I10 - Essential (primary) hypertension Status: Acute Assessment and Plan: Controlled. (7) AMELIA (obstructive sleep apnea): Code(s): G47.33 - Obstructive sleep apnea (adult) (pediatric) Status: Acute Assessment and Plan: compliance with BiPAP. (8) Lymphedema of both lower extremities: Code(s): I89.0 - Lymphedema, not elsewhere classified Status: Acute Assessment and Plan: Chronic. DVT prophylaxis. Wound care. Jayesh wraps. No DVT on lower extremity venous Dopplers. (9) Hypokalemia: Code(s): E87.6 - Hypokalemia Status: Acute Assessment and Plan: KCL 40 mg p.o. x1. Subjective Date/time seen: 06/20/21 10:41 Interval history: Cardiology follow up for CHF, Afib 06/09/2021: Feels about the same today, breathing slightly more labored. States he feels like someone is sitting on his chest. No other complaints. Discussed plan of care Date of service 06/10/2021: Had thoracentesis with removal of 1 L fluid from the right lung today. Start dialysis with removal of 4000 cc of fluid. Breathing a little better. Telemetry shows probable AFib versus junctional rhythm rate in the 60s, occasional PVCs versus AFib. Underlying rhythm is a RBBB Date of service 06/11/2021: Feeling pretty good, breathing better, had another dialysis treatment today. Dr. Cuenca put a stitch in the dialysis catheter to reduce the bloody oozing. Patient has not been out of bed today, are tears are uncomfortable for him. Tele - a fib rate 60's. Date of service 06/12/2021: Complaining of shortness of breath this mo
--- NOTE | 2021-06-20 10:43 | ECG_ITS ---
Measurements Intervals [place] Rate: 66 P: 222 OK: 243 QRS: -64 QRSD: 178 T: 32 QT: 468 QTc: 491 Interpretive Statements RHYTHM INDETERMINATE WITH OCCASIONAL PREMATURE VENTRICULAR COMPLEXES MARKED LEFT AXIS DEVIATION [QRS AXIS < -30] RIGHT BUNDLE BRANCH BLOCK [120+ ms QRS DURATION, UPRIGHT V1, 40+ ms S IN I/aVL/V4/V5/V6] ABNORMAL ECG COMPARED TO ECG 06/12/2021 11:06:21 FIRST DEGREE AV BLOCK NOW PRESENT LEFT-AXIS DEVIATION NOW PRESENT Electronically Signed On 06-20-2021 11:26:57 CDT by Marcin Quiroga M.D.
[2021-06-20] MEDS: POTASSIUM CHLORIDE 20 MEQ TABLET 40 MEQ PO (10:49)
--- NOTE | 2021-06-20 11:14 | P.PNNP_ITS ---
Progress Note: A&P Assessment and Plan (1) JENA (acute kidney injury): Code(s): N17.9 - Acute kidney failure, unspecified Status: Acute Assessment and Plan: * due to: * renal venous hypertension * contrast exposure (renal function was already deteriorating prior to dye use) * creatinine stable if not better than baseline * reasonable urine output noted * dialysis has been discontinued * remains on diuretic therapy (2) Stage 3a chronic kidney disease: Code(s): N18.31 - Chronic kidney disease, stage 3a Status: Chronic Assessment and Plan: * baseline creatinine runs ~ 1.4 - 1.7mg/dl in the last few years * due to hypertension and chronic pre renal azotemia due to his poorly functioning heart and possibly new liver disease * creatinine is actually better than baseline (3) Acute on chronic heart failure: Qualifiers: Heart failure type: unspecified Qualified Code(s): I50.9 - Heart failure, unspecified Code(s): I50.9 - Heart failure, unspecified Status: Acute Assessment and Plan: * as noted by fluid retention, weight gain, and shortness of breath * fluid overload/status is improving * continue the Bumex 2 mg IV bid while hospitalized * switch to oral bumex on discharge or if the creatinine starts to rise - whichever comes 1st (4) Respiratory failure with hypoxia: Qualifiers: Chronicity: acute Qualified Code(s): J96.01 - Acute respiratory failure with hypoxia Code(s): J96.91 - Respiratory failure, unspecified with hypoxia Status: Acute Assessment and Plan: * multiple issues could be responsible - worsening CHF versus worsening renal dysfunction versus infection/sepsis versus PE... * CTA of chest noted - no PE but pleural effusions present * using BiPAP PRN and every night. * s/p thoracentesis (on 06/06/21) with 925cc removed * original pleural fluid culture with Staph * s/p repeat thoracentesis done and repeat cultures with no growth * getting vancomycin/ancef (5) New onset atrial fibrillation: Code(s): I48.91 - Unspecified atrial fibrillation Status: Acute Assessment and Plan: * new finding * partly to blame for decline in status/renal function(?) * rate control strategy * on anticoagulation (6) Hypertension: Code(s): I10 - Essential (primary) hypertension Status: Chronic Assessment and Plan: * reasonable control * follow trend of hemodynamics * on metoprolol only Okay for discharge from renal perspective when otherwise medically stable Will continue to follow Subjective Date/time seen: 06/20/21 11:14 Swelling and edema appear to be improving if not stabilizing with ongoing/current therapy; no apparent distress voiced at the time of my visit but did report some chest heaviness that seemed to resolve on its own; no issues/char nts overnight or earlier this AM. Exam Narrative: General: WD/WN male in NAD Heart: normal S1 and S2; no rub Lungs: clear to auscultation Abdomen: soft, nontender, nondistended, positive bowel sounds Extremities: no cyanosis or clubbing; 1 - 2+ edema Skin: chronic venous stasis dermatitis Objective Data Vital Signs Vital Signs: Vital Signs Temp Pulse Resp BP Pulse Ox 06/20/21 08:00 68 97 06/20/21 05:56 36.2 C L 109 H 16 101/57 L 100 06/20/21 04:00 65 06/20/21 02
--- NOTE | 2021-06-20 11:14 | PM.PNNEP ---
Progress Note: A&P Assessment and Plan (1) JENA (acute kidney injury): Code(s): N17.9 - Acute kidney failure, unspecified Status: Acute Assessment and Plan: due to: renal venous hypertension contrast exposure (renal function was already deteriorating prior to dye use) creatinine stable if not better than baseline reasonable urine output noted dialysis has been discontinued remains on diuretic therapy (2) Stage 3a chronic kidney disease: Code(s): N18.31 - Chronic kidney disease, stage 3a Status: Chronic Assessment and Plan: baseline creatinine runs ~ 1.4 - 1.7mg/dl in the last few years due to hypertension and chronic pre renal azotemia due to his poorly functioning heart and possibly new liver disease creatinine is actually better than baseline (3) Acute on chronic heart failure: Qualifiers: Heart failure type: unspecified Qualified Code(s): I50.9 - Heart failure, unspecified Code(s): I50.9 - Heart failure, unspecified Status: Acute Assessment and Plan: as noted by fluid retention, weight gain, and shortness of breath fluid overload/status is improving continue the Bumex 2 mg IV bid while hospitalized switch to oral bumex on discharge or if the creatinine starts to rise - whichever comes 1st (4) Respiratory failure with hypoxia: Qualifiers: Chronicity: acute Qualified Code(s): J96.01 - Acute respiratory failure with hypoxia Code(s): J96.91 - Respiratory failure, unspecified with hypoxia Status: Acute Assessment and Plan: multiple issues could be responsible - worsening CHF versus worsening renal dysfunction versus infection/sepsis versus PE... CTA of chest noted - no PE but pleural effusions present using BiPAP PRN and every night. s/p thoracentesis (on 06/06/21) with 925cc removed original pleural fluid culture with Staph s/p repeat thoracentesis done and repeat cultures with no growth getting vancomycin/ancef (5) New onset atrial fibrillation: Code(s): I48.91 - Unspecified atrial fibrillation Status: Acute Assessment and Plan: new finding partly to blame for decline in status/renal function(?) rate control strategy on anticoagulation (6) Hypertension: Code(s): I10 - Essential (primary) hypertension Status: Chronic Assessment and Plan: reasonable control follow trend of hemodynamics on metoprolol only Okay for discharge from renal perspective when otherwise medically stable Will continue to follow Subjective Date/time seen: 06/20/21 11:14 Swelling and edema appear to be improving if not stabilizing with ongoing/current therapy; no apparent distress voiced at the time of my visit but did report some chest heaviness that seemed to resolve on its own; no issues/events overnight or earlier this AM. Exam Narrative: General: WD/WN male in NAD Heart: normal S1 and S2; no rub Lungs: clear to auscultation Abdomen: soft, nontender, nondistended, positive bowel sounds Extremities: no cyanosis or clubbing; 1 - 2+ edema Skin: chronic venous stasis dermatitis Objective Data Vital Signs Vital Signs: Vital Signs Temp Pulse Resp BP Pulse Ox 06/20/21 08:00 68 97 06/20/21 05:56 36.2 C L 109 H 16 101/57 L 100 06/20/21 04:00 65 06/20/21 02:34 66 97 06/20/21 00:00 67 06/19/21 23:12 98 06/19/21 23:11 68 98 06/19/21 22:08 36.1 C L 06/19/21 22:00 37.7 C H 64 16 126/72 99 06/19/21 21:20 100 06/19/21 20:48 72 06/19/21 20:00 71 06/19/21 16:00 68 06/19/21 14:00 35.6 C L 69 20 116/57 L 100 06/19/21 13:00 70 Intake/Output Intake/Output: Intake & Output 06/17/21 06/18/21 06/19/21 06/20/21 23:59 23:59 23:59 23:59 Intake Total 1370 1930 1358 1160 Output Total 1900 2250 2825 2100 Tdxpgzq -530 -320 -1467 -940 Meds/Results Medications: Ac
--- NOTE | 2021-06-20 11:27 | PM.IMPN ---
Progress Note: A&P Assessment and Plan (1) Acute on chronic heart failure: Qualifiers: Heart failure type: unspecified Qualified Code(s): I50.9 - Heart failure, unspecified Code(s): I50.9 - Heart failure, unspecified Status: Acute Assessment and Plan: On IV Bumex associated with pleural effusion Cardiology consulted Associated with hypoxic respiratory failure that is improving slowly. - Continue strict I&O and daily weights. - Status post Right Thoracentesis for pleural effusion. - Pleural fluid positive for MSSA on 06/07/21, continue abx. Pulmonology evaluation. (2) Morbid obesity with BMI of 50.0-59.9, adult: Code(s): E66.01 - Morbid (severe) obesity due to excess calories; Z68.43 - Body mass index [BMI] 50.0-59.9, adult Status: Acute Assessment and Plan: - Lifestyle changes as much as possible at discharge. (3) Chronic venous insufficiency: Code(s): I87.2 - Venous insufficiency (chronic) (peripheral) Status: Acute Assessment and Plan: - Jayesh wraps every shift. (4) GERD without esophagitis: Code(s): K21.9 - Gastro-esophageal reflux disease without esophagitis Status: Acute Assessment and Plan: - PPI therapy. (5) Dyslipidemia: Code(s): E78.5 - Hyperlipidemia, unspecified Status: Acute Assessment and Plan: - Heart Healthy Diet (6) Essential (primary) hypertension: Code(s): I10 - Essential (primary) hypertension Status: Acute Assessment and Plan: - Monitor and provide home medications. (7) Peripheral polyneuropathy: Code(s): G62.9 - Polyneuropathy, unspecified Status: Acute Assessment and Plan: - Continue gabapentin (8) AMELIA (obstructive sleep apnea): Code(s): G47.33 - Obstructive sleep apnea (adult) (pediatric) Status: Acute Assessment and Plan: - Home BiPap (9) Acute respiratory failure with hypoxia: Code(s): J96.01 - Acute respiratory failure with hypoxia Status: Acute Assessment and Plan: - Likely secondary to acute on chronic diastolic heart failyure. - As evidenced by bilateral pleural effusion and edama of BLE. - Also has liver cirrhosis and ascites. - Keep K>4 and Mag>2. (10) New onset a-fib: Code(s): I48.91 - Unspecified atrial fibrillation Status: Acute Assessment and Plan: - Eliquis ordered, but currently holding due to bleeding around dialysis site. - Continue Metoprolol. - Good rate control achieved. (11) UTI (urinary tract infection): Qualifiers: Urinary tract infection type: site unspecified Hematuria presence: without hematuria Qualified Code(s): N39.0 - Urinary tract infection, site not specified Code(s): N39.0 - Urinary tract infection, site not specified Status: Acute Assessment and Plan: Secondary to Enterococcus continue vancomycin patient allergic to penicillin (12) JENA (acute kidney injury): Code(s): N17.9 - Acute kidney failure, unspecified Status: Acute Assessment and Plan: - Nephrology is managing. Appreciate their continued management. - Pt. receiving dialysis - Continue flomax. Pt. with good urine output. - Creatinine has started to improve. - Monitor labs and VS daily. - Avoid Nephrotoxins as much as possible. (13) Hypokalemia: Code(s): E87.6 - Hypokalemia Status: Acute (14) New onset atrial fibrillation: Code(s): I48.91 - Unspecified atrial fibrillation Status: Acute Assessment and Plan: patient has a new onset atrial fibrillation seen by cardiology rate is controlled with metoprolol 50 mg b.i.d. and anticoagulated with Eliquis 5 mg b.i.d. patient has a moderate pulmonary hypertension with preserved LV function, moderately enlarged RV ventricle and hypokinesis, patient does not have PE or DVT, patient seen by Nephrology and Cardiology appreciate Additional Plan Pending pulmonol
--- NOTE | 2021-06-20 13:48 | PCNFU ---
Nutrition Follow-Up Complete: Inadequate oral intake related to decreased appetite as evidenced by reported poor PO intake Goal: Pt to meet >50% of estimated nutritional needs Patient is progressing towards goal. We will continue current goal. Pt current nutrition is Renal Dialysis Last recorded weight is 168.1 kg, down from 183.3 kg on admit. Bowel Motility:+ BM reported 06/16 Labs Reviewed:GFR 54, Na 136, Alb 3.4 Meds Noted: Protonix, Miralax, Flomax, Eliquis, Bumex, Neurontin, Synthroid, Lopressor. Skin: WNL Additional Notes: Nutrition follow up. Patient is consuming 50-100% of most meals. Diet supplements of Nepro being sent BID providing an additional 425 kcals and 19 gms protein. Agree with diet orders. Will monitor labs, medication, wt, and reported intake every 5 days
--- NOTE | 2021-06-20 17:00 | PM.CNPUL ---
Assessment and Plan Assessment and plan (1) Pleural effusion: Code(s): J90 - Pleural effusion, not elsewhere classified Status: Acute Assessment and Plan: 71-year-old man admitted into the hospital approximately 3 weeks ago with shortness of breath, lower extremity edema, fluid overload, found to have pleural effusions bilaterally, of moderate size on right, and a small one on left, had thoracentesis twice on the right pleural effusion. Pleural fluid analysis showed transudative effusion most likely. Other fluid characteristics not consistent with empyema. The MSSA grown on aerobic culture probably represents contaminant. On last chest x-ray there was no evidence of right pleural effusion recurrence. The patient does not need to be on treatment for empyema. (2) Acute respiratory failure with hypoxia: Code(s): J96.01 - Acute respiratory failure with hypoxia Status: Acute Assessment and Plan: the patient has been on BiPAP support for obstructive sleep apnea but had not been on home oxygen. He will need evaluation for home oxygen prior to discharge. (3) Morbid obesity with BMI of 50.0-59.9, adult: Code(s): E66.01 - Morbid (severe) obesity due to excess calories; Z68.43 - Body mass index [BMI] 50.0-59.9, adult Status: Acute (4) Acute on chronic heart failure: Qualifiers: Heart failure type: unspecified Qualified Code(s): I50.9 - Heart failure, unspecified Code(s): I50.9 - Heart failure, unspecified Status: Acute (5) JENA (acute kidney injury): Code(s): N17.9 - Acute kidney failure, unspecified Status: Acute (6) AMELIA (obstructive sleep apnea): Code(s): G47.33 - Obstructive sleep apnea (adult) (pediatric) Status: Acute Assessment and Plan: patient using BiPAP support every night. He has no clinical evidence of uncontrolled sleep disordered breathing. Consider apnea link prior to discharge home. (7) New onset atrial fibrillation: Code(s): I48.91 - Unspecified atrial fibrillation Status: Acute (8) Pulmonary hypertension: Code(s): I27.20 - Pulmonary hypertension, unspecified Status: Acute History of Present Illness History of Present Illness Consult date: 06/20/21 Chief complaint: CHF exacerbation Narrative: This 71-year-old man who was admitted into the hospital approximately 3 weeks ago with increasing shortness of breath, lower extremity edema and significant weight gain. the patient multiple medical problems including morbid obesity, history of pericardial window, hypothyroidism , chronic kidney disease, congestive heart failure chronic low back pain chronic lymphedema hypertension obstructive sleep apnea on BiPAP peripheral neuropathy. In addition to increasing shortness of breath and lower extremity edema the patient also complained of increased abdominal girth paroxysmal nocturnal dyspnea orthopnea. He had no fever chills cough sputum production or hemoptysis. Initial diagnostic studies with chest x-ray and CT PA showed bilateral pleural effusions greater on right and no evidence of pulmonary embolism. during this hospitalization the clinical condition was complicated by worsening renal failure for which he was evaluated by nephrology services and underwent hemodialysis with fluid removal. I was asked to see the patient regarding possible empyema as a pleural fluid following thoracentesis on right grew MSSA. The initial thoracentesis on 06/06 yielded clear fluid which was most likely a transudate based on low LDH, low protein. pH was normal and the effusion was mostly lymphocytic. On pleural fluid Gram stain there were no organism but there was a scant growth of MSSA on aerobic culture. on repeat thoracentesis 4 days later the pleural fluid characteristics were more or less similar suggestive of again transudate, with Gram stain again showing no organism and aerobic culture being negative. on las
[2021-06-20] MEDS: ACETAMINOPHEN 500 MG TABLET PO (21:08)
[2021-06-21] VITALS (16 sets, daily range): BP systolic 106–132; BP diastolic 59–72; PULSE 55–75; RESP 16–20; TEMP 35.6–36.9; O2SAT 95–100
--- NOTE | 2021-06-21 05:02 | ECG_ITS ---
Measurements Intervals [place] Rate: 44 P: OK: 0 QRS: -42 QRSD: 178 T: 51 QT: 523 QTc: 452 Interpretive Statements ATRIAL FIBRILLATION WITH SLOW VENTRICULAR RESPONSE WITH ABERRANT CONDUCTION OR VENTRICULAR PREMATURE COMPLEXES MARKED LEFT AXIS DEVIATION [QRS AXIS < -30] RIGHT BUNDLE BRANCH BLOCK [120+ ms QRS DURATION, UPRIGHT V1, 40+ ms S IN I/aVL/V4/V5/V6] ST DEVIATION AND MARKED T-WAVE ABNORMALITY, CONSIDER ANTEROLATERAL ISCHEMIA [-0.5+ mV T WAVE IN I/aVL/V3-V6] ABNORMAL ECG Electronically Signed On 06-21-2021 14:03:02 CDT by Marcin Quiroga M.D.
--- NOTE | 2021-06-21 05:05 | PC.NURSE ---
Informed Dr. Aldridge of heart rate in the 30's periodically per cardiac care nurse, pt asymptomatic. Pt received lopressor at 2100. New order received.
[2021-06-21] MEDS: LEVOTHYROXINE SODIUM 25 MCG TABLET PO (05:52)
[2021-06-21] MEDS: LEVOTHYROXINE SODIUM 100 MCG TABLET 200 MCG PO (05:52)
[2021-06-21] MEDS: polyethylene glycoL 3350 17 GM POWD.PACK PO (09:30)
[2021-06-21] MEDS: METOPROLOL TARTRATE 50 MG TAB PO (09:31)
[2021-06-21] MEDS: GABAPENTIN 300 MG CAPSULE PO ×4 (09:32→21:15)
[2021-06-21] MEDS: acetaZOLAMIDE TAB 250 MG TABLET 500 MG PO ×2 (09:32→17:16)
[2021-06-21] MEDS: TAMSULOSIN HCL 0.4 MG CAPSULE PO (09:32)
[2021-06-21] MEDS: APIXABAN 5 MG TABLET PO ×2 (09:32→21:15)
[2021-06-21] MEDS: LORATADINE 10 MG TABLET PO (09:33)
[2021-06-21] MEDS: PANTOPRAZOLE 40 MG TABLET PO (09:33)
[2021-06-21] MEDS: BUMETANIDE INJ 2.5 MG/10 ML VIAL 2 MG IV PUSH ×2 (09:33→17:16)
[2021-06-21] MEDS: LACTIC ACID 12% LOTION 225 BTL 1 APPLIC TOPICAL (09:33)
[2021-06-21] MEDS: TOLNAFTATE 1% POWDER 45 GM BTL 1 APPLIC TOPICAL ×2 (09:34→21:17)
--- NOTE | 2021-06-21 10:38 | PM.PNPUL ---
Progress Note: A&P Additional Plan (1) Pleural effusion: Code(s): J90 - Pleural effusion, not elsewhere classified Status: Acute Assessment and Plan: 71-year-old man admitted into the hospital approximately 3 weeks ago with shortness of breath, lower extremity edema, fluid overload, found to have pleural effusions bilaterally, of moderate size on right, and a small one on left, had thoracentesis twice on the right pleural effusion. Pleural fluid analysis showed transudative effusion most likely. Other fluid characteristics not consistent with empyema. The MSSA grown on aerobic culture probably represents contaminant. The patient does not need to be on treatment for empyema. On yesterday's chest CT, there was evidence of pleural fluid reaccumulation bilaterally with moderate size pleural effusion right and a smaller 1 on left as previously; plan: no need to do a 3rd thoracentesis at this point as patient retains fluid. will proceed with apnea leading to exclude nocturnal oxy hemoglobin desaturation that may sustain fluid retention. (2) Acute respiratory failure with hypoxia: Code(s): J96.01 - Acute respiratory failure with hypoxia Status: Acute Assessment and Plan: the patient has been on BiPAP support for obstructive sleep apnea but had not been on home oxygen. He will need evaluation for home oxygen prior to discharge. (3) Morbid obesity with BMI of 50.0-59.9, adult: Code(s): E66.01 - Morbid (severe) obesity due to excess calories; Z68.43 - Body mass index [BMI] 50.0-59.9, adult Status: Acute (4) Acute on chronic heart failure: Qualifiers: Heart failure type: unspecified Qualified Code(s): I50.9 - Heart failure, unspecified Code(s): I50.9 - Heart failure, unspecified Status: Acute (5) JENA (acute kidney injury): Code(s): N17.9 - Acute kidney failure, unspecified Status: Acute (6) AMELIA (obstructive sleep apnea): Code(s): G47.33 - Obstructive sleep apnea (adult) (pediatric) Status: Acute Assessment and Plan: patient using BiPAP support every night. He has no clinical evidence of uncontrolled sleep disordered breathing. Consider apnea link prior to discharge home. (7) New onset atrial fibrillation: Code(s): I48.91 - Unspecified atrial fibrillation Status: Acute (8) Pulmonary hypertension: Code(s): I27.20 - Pulmonary hypertension, unspecified Status: Acute Subjective Date/time seen: 06/21/21 10:38 patient has no new respiratory symptoms. Used CPAP and supplemental oxygen last night. He was told by his nurse that his heart rate was low last night. He is going to talk to his strategy consultant about it. Underwent chest CT yesterday. Review of Systems Review of Systems: All systems reviewed & are unremarkable except as noted in HPI and below Exam Narrative: GENERAL APPEARANCE: Well developed, well nourished, alert and cooperative, morbidly obese who appears to be in no apparent respiratory distress while on supplemental oxygen sitting in a chair HEENT: Sclerae anicteric and conjunctivae pink and moist. Extraocular movements were intact and pupils were equal, round. NECK: Supple. There was no thyroid enlargement, and no tenderness, or masses were felt. LUNGS: Auscultation of the lungs revealed a distant breath sounds bilaterally. CARDIAC: There was a ir regular rate and rhythm without any murmurs. ABDOMEN: Soft and nontender with normal bowel sounds. LYMPH NODES: No lymphadenopathy was appreciated in the neck. EXTREMITIES: chronic stasis dermatitis changes in lower extremities with evidence of lymphedema bilaterally worse on right NEUROLOGIC: Alert and oriented x 3. Normal affect. Objective Data Vital Signs Vital Signs: Vital Signs - 24 hr 06/20/21 12:00 06/20/21 13:48 06/20/21 16:00 Temperature 36.6 C Pulse Rate 66 66 68 Respiratory Rate 16 Blood Pressure 127/55 L Pulse Oximetry 99
[2021-06-21] MEDS: ACETAMINOPHEN 500 MG TABLET PO (11:24)
--- NOTE | 2021-06-21 12:15 | P.PNNP_ITS ---
Progress Note: A&P Assessment and Plan (1) JENA (acute kidney injury): Code(s): N17.9 - Acute kidney failure, unspecified Status: Acute Assessment and Plan: * due to: * renal venous hypertension * contrast exposure (renal function was already deteriorating prior to dye use) * creatinine stable if not better than baseline * reasonable urine output noted * dialysis has been discontinued * remains on diuretic therapy (2) Stage 3a chronic kidney disease: Code(s): N18.31 - Chronic kidney disease, stage 3a Status: Chronic Assessment and Plan: * baseline creatinine runs ~ 1.4 - 1.7mg/dl in the last few years * due to hypertension and chronic pre renal azotemia due to his poorly functioning heart and possibly new liver disease * creatinine is actually better than baseline (3) Acute on chronic heart failure: Qualifiers: Heart failure type: unspecified Qualified Code(s): I50.9 - Heart failure, unspecified Code(s): I50.9 - Heart failure, unspecified Status: Acute Assessment and Plan: * as noted by fluid retention, weight gain, and shortness of breath * fluid overload/status is improving * continue the Bumex 2 mg IV bid while hospitalized * switch to oral bumex on discharge or if the creatinine starts to rise - whichever comes 1st (4) Respiratory failure with hypoxia: Qualifiers: Chronicity: acute Qualified Code(s): J96.01 - Acute respiratory failure with hypoxia Code(s): J96.91 - Respiratory failure, unspecified with hypoxia Status: Acute Assessment and Plan: * multiple issues could be responsible - worsening CHF versus worsening renal dysfunction versus infection/sepsis versus PE... * CTA of chest noted - no PE but pleural effusions present * using BiPAP PRN and every night. * s/p thoracentesis (on 06/06/21) with 925cc removed * original pleural fluid culture with Staph * s/p repeat thoracentesis done and repeat cultures with no growth * getting vancomycin/ancef (5) New onset atrial fibrillation: Code(s): I48.91 - Unspecified atrial fibrillation Status: Acute Assessment and Plan: * new finding * partly to blame for decline in status/renal function(?) * rate control strategy * on anticoagulation (6) Hypertension: Code(s): I10 - Essential (primary) hypertension Status: Chronic Assessment and Plan: * reasonable control * follow trend of hemodynamics * on metoprolol only Okay for discharge from renal perspective when otherwise medically stable Will continue to follow Subjective Date/time seen: 06/21/21 12:15 Still has some shortness of breath and swelling but overall continues to improve with ongoing diuresis; no apparent distress voiced; no issues/events overnight or earlier this AM. Exam Narrative: General: WD/WN male in NAD Heart: normal S1 and S2; no rub Lungs: decreased at bases Abdomen: soft, nontender, nondistended, positive bowel sounds Extremities: no cyanosis or clubbing; 1 - 2+ edema Skin: chronic venous stasis dermatitis present Objective Data Vital Signs Vital Signs: Vital Signs Temp Pulse Resp BP Pulse Ox 06/21/21 14:00 35.6 C L 75 20 132/66 98 06/21/21 09:32 97 06/21/21 09:31 68 06/21/21 08:11 97 06/21/21 08:00 67 06/21/21 05:47 36.9 C 55 L 20
--- NOTE | 2021-06-21 12:15 | PM.PNNEP ---
Progress Note: A&P Assessment and Plan (1) JENA (acute kidney injury): Code(s): N17.9 - Acute kidney failure, unspecified Status: Acute Assessment and Plan: due to: renal venous hypertension contrast exposure (renal function was already deteriorating prior to dye use) creatinine stable if not better than baseline reasonable urine output noted dialysis has been discontinued remains on diuretic therapy (2) Stage 3a chronic kidney disease: Code(s): N18.31 - Chronic kidney disease, stage 3a Status: Chronic Assessment and Plan: baseline creatinine runs ~ 1.4 - 1.7mg/dl in the last few years due to hypertension and chronic pre renal azotemia due to his poorly functioning heart and possibly new liver disease creatinine is actually better than baseline (3) Acute on chronic heart failure: Qualifiers: Heart failure type: unspecified Qualified Code(s): I50.9 - Heart failure, unspecified Code(s): I50.9 - Heart failure, unspecified Status: Acute Assessment and Plan: as noted by fluid retention, weight gain, and shortness of breath fluid overload/status is improving continue the Bumex 2 mg IV bid while hospitalized switch to oral bumex on discharge or if the creatinine starts to rise - whichever comes 1st (4) Respiratory failure with hypoxia: Qualifiers: Chronicity: acute Qualified Code(s): J96.01 - Acute respiratory failure with hypoxia Code(s): J96.91 - Respiratory failure, unspecified with hypoxia Status: Acute Assessment and Plan: multiple issues could be responsible - worsening CHF versus worsening renal dysfunction versus infection/sepsis versus PE... CTA of chest noted - no PE but pleural effusions present using BiPAP PRN and every night. s/p thoracentesis (on 06/06/21) with 925cc removed original pleural fluid culture with Staph s/p repeat thoracentesis done and repeat cultures with no growth getting vancomycin/ancef (5) New onset atrial fibrillation: Code(s): I48.91 - Unspecified atrial fibrillation Status: Acute Assessment and Plan: new finding partly to blame for decline in status/renal function(?) rate control strategy on anticoagulation (6) Hypertension: Code(s): I10 - Essential (primary) hypertension Status: Chronic Assessment and Plan: reasonable control follow trend of hemodynamics on metoprolol only Okay for discharge from renal perspective when otherwise medically stable Will continue to follow Subjective Date/time seen: 06/21/21 12:15 Still has some shortness of breath and swelling but overall continues to improve with ongoing diuresis; no apparent distress voiced; no issues/events overnight or earlier this AM. Exam Narrative: General: WD/WN male in NAD Heart: normal S1 and S2; no rub Lungs: decreased at bases Abdomen: soft, nontender, nondistended, positive bowel sounds Extremities: no cyanosis or clubbing; 1 - 2+ edema Skin: chronic venous stasis dermatitis present Objective Data Vital Signs Vital Signs: Vital Signs Temp Pulse Resp BP Pulse Ox 06/21/21 14:00 35.6 C L 75 20 132/66 98 06/21/21 09:32 97 06/21/21 09:31 68 06/21/21 08:11 97 06/21/21 08:00 67 06/21/21 05:47 36.9 C 55 L 20 106/59 L 100 06/21/21 04:00 55 L 06/21/21 00:00 67 06/20/21 21:50 37.1 C 68 20 136/67 100 06/20/21 20:20 74 06/20/21 20:05 96 06/20/21 20:00 67 96 Intake/Output Intake/Output: Intake & Output 06/18/21 06/19/21 06/20/21 06/21/21 23:59 23:59 23:59 23:59 Intake Total 1930 1358 2062 1558 Output Total 2250 2825 3000 2050 Eeeqshy -094 -[phone] -[phone] -492 Meds/Results Medications: Active Medications Generic Name Dose Route Start Last Admin Trade Name Freq PRN Reason Stop Dose Admin Acetaminophen 162.5 mg 06/09/21 16:17 Acetaminophen Elixir
--- NOTE | 2021-06-21 12:59 | PM.PNCARD ---
Progress Note: A&P Assessment and Plan (1) Respiratory failure with hypoxia: Qualifiers: Chronicity: acute Qualified Code(s): J96.01 - Acute respiratory failure with hypoxia Code(s): J96.91 - Respiratory failure, unspecified with hypoxia Status: Acute Assessment and Plan: Improved with dialysis and thoracentesis and now diuresis (2) Acute on chronic heart failure with preserved ejection fraction: Code(s): I50.33 - Acute on chronic diastolic (congestive) heart failure Status: Acute Assessment and Plan: Acute right and left heart failure with preserved systolic function. Echo reveals severe RV enlargement and hypokinesis with moderate pulmonary hypertension. CTA was negative for pulmonary embolus. Continue Bumex 2mg IV b.i.d. HTN controlled CHF improved. (3) New onset atrial fibrillation: Code(s): I48.91 - Unspecified atrial fibrillation Status: Acute Assessment and Plan: New onset atrial fibrillation, appears paroxysmal on telemetry along with possible intermittent junctional escape rhythm. Currently in sinus rhythm. Heart rate reasonably controlled with metoprolol 50 mg BID. Be cautious with AV orquidea blocking agents given underlying bundle-branch block, intermittent junctional rhythm, and fairly controlled heart rate in atrial fibrillation suggestive of significant underlying conduction system disease. CHADS2 Vasc score 4. A/c with Eliquis 5 mg b.i.d. Continue metoprolol 50 mg BID Continue telemetry. (4) Acute kidney injury superimposed on chronic kidney disease: Code(s): N17.9 - Acute kidney failure, unspecified; N18.9 - Chronic kidney disease, unspecified Status: Acute Assessment and Plan: Started on hemodialysis this admission. Now making good urine on IV Bumex. Dialysis catheter has been removed at this point. (5) Pulmonary hypertension: Code(s): I27.20 - Pulmonary hypertension, unspecified Status: Acute Assessment and Plan: Consistent with cor pulmonale. Moderate severity RVSP 51 mm Hg similar to prior echo June 2020. RV enlargement hypokinesis also similar. Lower extremity Dopplers negative for DVT. CT negative for PE . W (6) Essential (primary) hypertension: Code(s): I10 - Essential (primary) hypertension Status: Acute Assessment and Plan: Controlled. (7) AMELIA (obstructive sleep apnea): Code(s): G47.33 - Obstructive sleep apnea (adult) (pediatric) Status: Acute Assessment and Plan: compliance with BiPAP. (8) Lymphedema of both lower extremities: Code(s): I89.0 - Lymphedema, not elsewhere classified Status: Acute Assessment and Plan: Chronic. DVT prophylaxis. Wound care. Jayesh wraps. No DVT on lower extremity venous Dopplers. (9) Hypokalemia: Code(s): E87.6 - Hypokalemia Status: Acute Assessment and Plan: Basic metabolic panel in the morning Subjective Date/time seen: 06/21/21 12:59 Interval history: Cardiology follow up for CHF, Afib 06/09/2021: Feels about the same today, breathing slightly more labored. States he feels like someone is sitting on his chest. No other complaints. Discussed plan of care Date of service 06/10/2021: Had thoracentesis with removal of 1 L fluid from the right lung today. Start dialysis with removal of 4000 cc of fluid. Breathing a little better. Telemetry shows probable AFib versus junctional rhythm rate in the 60s, occasional PVCs versus AFib. Underlying rhythm is a RBBB Date of service 06/11/2021: Feeling pretty good, breathing better, had another dialysis treatment today. Dr. Cuenca put a stitch in the dialysis catheter to reduce the bloody oozing. Patient has not been out of bed today, are tears are uncomfortable for him. Tele - a fib rate 60's. Date of service 06/12/2021: Complaining of shortness of breath this morning. States that last night he became
[2021-06-21] MEDS: POTASSIUM CHLORIDE 20 MEQ PACKET (FOR LIQUID) 40 MEQ PO ×2 (13:13→17:16)
--- NOTE | 2021-06-21 14:50 | PM.IMPN ---
Progress Note: A&P Additional Plan 71-year-old male with past medical history significant for obesity, pericardial window, hypothyroidism, congestive heart failure, chronic low back pain, chronic venous insufficiency, presented with worsening SOB, increased abdominal girth, B/L leg Swelling 1)Acute Hypoxic Resp Failure: likely 2/2 acute on chronic diastolic HF Has B/l Pleural effusion with leg swelling Also has liver cirrhosis with ascites Appreciate cardiology help c/w bumex c/w O2 support Strict I/o's Daily weight Keep K>4, mag>2 s/p right sided thoracentesisx2 Appreciate pulmonary consult c/w vancomcyin for now 2)JENA on CKD Stage 3A: Appreciate renal help management per renal Avoid nephrotoxins Recheck BMP in AM c/w flomax for urinary retention Supplement potassium 3)New Onset of Afibb: c/w metoprolol c/w eliquis 4)Chronic venous insufficiency: Apply Jayesh wraps for now Qshift 5)Fever: Resolved Leucocytosis resolved Will monitor 6)Code:Full, needs goals of care discussion 7)DVT ppx: On Eliquis, 8)Dispo:pending improvement, 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 Time Spent With Patient Time with patient: 25 - 35 minutes Subjective Date/time seen: 06/21/21 14:50 sitting in chair, no acute events overnight Review of Systems Review of Systems: All systems reviewed & are unremarkable except as noted in HPI and below Constitutional: Constitutional: Reports fatigue, Reports lethargy and Reports weakness Eyes: Eyes: Reports no additional eye complaints Cardiovascular: Cardiovascular: Reports no additional cardiovascular complaints Respiratory: Respiratory: Reports dyspnea Gastrointestinal: Gastrointestinal: Reports bloating Exam Const: General: no acute distress Other: nasal canula in situ HENMT: Mouth: Yes moist mucous membranes Eyes: Sclera: sclerae normal Pupils: Equal, round and reactive pupils present Neck: Neck: supple Resp: Other: decreased breath sounds B/L , few crcakles at bases Cardio: Rate: regular rate GI: Inspection: distended GI Palp: Yes Soft to palpation Auscultation: normal bowel sounds Neuro: Cognition (Neuro): normal cognition Extrem: General: edema Other: chronic venous statsis dermatitis Psych: Mental Status: mental status grossly normal Objective Data Vital Signs Vital Signs: Vital Signs - 24 hr 06/20/21 16:00 06/20/21 20:00 06/20/21 20:05 Temperature Pulse Rate 68 67 Respiratory Rate Blood Pressure Pulse Oximetry 96 96 06/20/21 20:20 06/20/21 21:50 06/21/21 00:00 Temperature 98.8 F Pulse Rate 74 68 67 Respiratory Rate 20 Blood Pressure 136/67 Pulse Oximetry 100 06/21/21 04:00 06/21/21 05:47 06/21/21 08:00 Temperature 98.5 F Pulse Rate 55 L 55 L 67 Respiratory Rate 20 Blood Pressure 106/59 L Pulse Oximetry 100 06/21/21 08:11 06/21/21 09:31 06/21/21 09:32 Temperature Pulse Rate 68 Respiratory Rate Blood Pressure Pulse Oximetry 97 97 Intake/Output Intake/Output: Intake & Output 06/18/21 06/19/21 06/20/21 06/21/21 23:59 23:59 23:59 23:59 Intake Total 1930 1358 2062 1322 Output Total 2250 2825 0026 650 Jaegyui -461 -3198 -931 672 Meds/Results Medications: Active Medications Generic Name Dose Route Start Last Admin Trade Name Freq PRN Reason Stop Dose Admin Acetaminophen 162.5 mg 06/09/21 16:17 Acetaminophen Elixir 325 Mg/10.15 Ml Udc PO Q4H PRN Pain Rated 4-6 Acetaminophen 500 mg 06/14/21 11:10 06/21/21 11:24 Acetaminophen 500 Mg Tablet PO 500 mg Q8H PRN Administration Mild Pain (1-3) Acetazolamide 500 mg 06/16/21 17:00 06/21/21 09:32 Acetazolamide Tab 250 Mg Tablet PO 500 mg BID ANGELA Administration Apixaban 5 mg 06/03/21 21:00 06/21/21 09:32 Apixaban 5 Mg Tablet PO 5 mg Q12HR ANGELA Administration Bumetanide 2 mg 06/09/21 17:15 06/21/21 09:33 Bumetanide Inj 2.5 Mg/10 Ml Vial IV PUSH 2 mg BID ANGELA Administr
[2021-06-21] MEDS: LIDOCAINE 5% PATCH 1 PATCH TRANSDERM (17:14)
[2021-06-22] VITALS (13 sets, daily range): BP systolic 101–136; BP diastolic 63–71; PULSE 58–73; RESP 16; TEMP 36.1–36.4; O2SAT 95–100
[2021-06-22] MEDS: LEVOTHYROXINE SODIUM 25 MCG TABLET PO (06:15)
[2021-06-22] MEDS: LEVOTHYROXINE SODIUM 100 MCG TABLET 200 MCG PO (06:15)
[2021-06-22 06:36] LABS: Basophils Absolute Auto 0.1 K/mm3 (0.0-0.1); Basophils Percent Auto 1.8 % (0.2-1.2); Eosinophils Absolute Auto 0.5 K/mm3 (0-0.3); Eosinophils Percent Auto 6.4 % (0-4.4); Hematocrit 39.6 % (42.0-52.0); Hemoglobin 11.1 g/dL (14.0-18.0); Immature Granulocyte Absolute 0.03 K/mm3 (0.00-0.031); Immature Granulocyte Percent A 0.4 % (0-0.5); Lymphocytes Absolute Auto 0.74 K/mm3 (0.9-3.2); Lymphocytes Percent Auto 10.5 % (18.3-44.2); Mean Corpuscular Hemoglobin 26.7 pg (26-34); Mean Corpuscular Volume 95.4 fl (80-100); Mean Platelet Volume 10.8 fl (7.4-10.4); Monocytes Absolute Auto 0.7 K/mm3 (0.1-0.6); Monocytes Percent Auto 10.3 % (2.6-8.5); Neutrophils Percent Auto 70.6 % (45.5-73.1); Platelet Count Result 357 k/mm3 (150-375); Red Blood Count 4.15 M/mm3 (4.6-6.20); Red Cell Distribution Width 16.7 % (11.5-14.5); White Blood Count 7.1 K/mm3 (4.5-10.0)
[2021-06-22 06:50] LABS: Anion Gap 5 mmol/L (8-16); Blood Urea Nitrogen 17 mg/dL (9-20); Calcium 8.7 mg/dL (8.4-10.2); Carbon Dioxide 34 mmol/L (22-30); Chloride 98 mmol/L (98-107); Estimated CRCL calculation 70 ml/min; Estimated Glomerular Filt Rate 50; Glucose 95 mg/dL (65-110); Potassium 3.7 mmol/L (3.4-5.0); Sodium 137 mmol/L (137-145)
[2021-06-22 07:16] LABS: Platelet Estimate Adequate (Adequate)
[2021-06-22 07:17] LABS: Anisocytosis 1+ (NORMAL); Ovalocytes 1+ (NORMAL); Stomatocytes 1+ (NORMAL)
[2021-06-22] MEDS: GABAPENTIN 300 MG CAPSULE PO ×3 (09:00→20:52)
[2021-06-22] MEDS: LIDOCAINE 5% PATCH 1 PATCH TRANSDERM (09:00)
[2021-06-22] MEDS: BUMETANIDE INJ 2.5 MG/10 ML VIAL 2 MG IV PUSH ×2 (09:01→17:30)
[2021-06-22] MEDS: LORATADINE 10 MG TABLET PO (09:01)
[2021-06-22] MEDS: acetaZOLAMIDE TAB 250 MG TABLET 500 MG PO ×2 (09:01→17:31)
[2021-06-22] MEDS: PANTOPRAZOLE 40 MG TABLET PO (09:01)
[2021-06-22] MEDS: APIXABAN 5 MG TABLET PO ×2 (09:01→20:52)
[2021-06-22] MEDS: METOPROLOL TARTRATE 50 MG TAB PO (09:01)
[2021-06-22] MEDS: TAMSULOSIN HCL 0.4 MG CAPSULE PO (09:01)
[2021-06-22] MEDS: polyethylene glycoL 3350 17 GM POWD.PACK PO (09:02)
[2021-06-22] MEDS: TOLNAFTATE 1% POWDER 45 GM BTL 1 APPLIC TOPICAL ×2 (09:02→20:52)
[2021-06-22] MEDS: LACTIC ACID 12% LOTION 225 BTL 1 APPLIC TOPICAL (09:02)
[2021-06-22] MEDS: FLUTICASONE PROPIONATE 0.05% NA SPR 16 GM BTL (*BKC) 1 SPRAY NASAL (09:02)
--- NOTE | 2021-06-22 09:25 | PM.PNPUL ---
Progress Note: A&P Additional Plan Additional Plan (1) Pleural effusion: Code(s): J90 - Pleural effusion, not elsewhere classified Status: Acute Assessment and Plan: 71-year-old man admitted into the hospital approximately 3 weeks ago with shortness of breath, lower extremity edema, fluid overload, found to have pleural effusions bilaterally, of moderate size on right, and a small one on left, had thoracentesis twice on the right pleural effusion. Pleural fluid analysis showed transudative effusion most likely. Other fluid characteristics not consistent with empyema. The MSSA grown on aerobic culture probably represents contaminant. The patient does not need to be on treatment for empyema. On yesterday's chest CT, there was evidence of pleural fluid reaccumulation bilaterally with moderate size pleural effusion right and a smaller 1 on left as previously. It appears as though the patient is very sensitive to intravascular volume changes, as with increasing diuresis creatinine increases as well. To the extent this is correct, and given the rapid reaccumulation of pleural effusions, this indicates the patient will continue to have pleural effusions. apnea link study last night while the patient on CPAP and supplemental oxygen 4 liters/minute showed adequate oxyhemoglobin desaturation. plan: no need to do 3rd thoracentesis at this point. Patient will continue with CPAP and current oxygen flow. Will sign off. Please call with any questions. (2) Acute respiratory failure with hypoxia: Code(s): J96.01 - Acute respiratory failure with hypoxia Status: Acute Assessment and Plan: the patient has been on BiPAP support for obstructive sleep apnea but had not been on home oxygen. He will need evaluation for home oxygen prior to discharge. (3) Morbid obesity with BMI of 50.0-59.9, adult: Code(s): E66.01 - Morbid (severe) obesity due to excess calories; Z68.43 - Body mass index [BMI] 50.0-59.9, adult Status: Acute (4) Acute on chronic heart failure: Qualifiers: Heart failure type: unspecified Qualified Code(s): I50.9 - Heart failure, unspecified Code(s): I50.9 - Heart failure, unspecified Status: Acute (5) JENA (acute kidney injury): Code(s): N17.9 - Acute kidney failure, unspecified Status: Acute (6) AMELIA (obstructive sleep apnea): Code(s): G47.33 - Obstructive sleep apnea (adult) (pediatric) Status: Acute Assessment and Plan: patient using BiPAP support every night. He has no clinical evidence of uncontrolled sleep disordered breathing. Consider apnea link prior to discharge home. (7) New onset atrial fibrillation: Code(s): I48.91 - Unspecified atrial fibrillation Status: Acute (8) Pulmonary hypertension: Code(s): I27.20 - Pulmonary hypertension, unspecified Status: Acute Subjective Date/time seen: 06/22/21 09:25 Patient used CPAP last night. Underwent ApneaLink study last night. Complaining of some fatigue today. His still in bed. He has no changes in his shortness of breath no other. no other respiratory symptoms. Review of Systems Review of Systems: All systems reviewed & are unremarkable except as noted in HPI and below Exam Narrative: GENERAL APPEARANCE: Well developed, well nourished, alert and cooperative, morbidly obese who appears to be in no apparent respiratory distress while on supplemental oxygen upright in bed. HEENT: Sclerae anicteric and conjunctivae pink and moist. Extraocular movements were intact and pupils were equal, round. NECK: Supple. There was no thyroid enlargement, and no tenderness, or masses were felt. LUNGS: Auscultation of the lungs revealed a distant breath sounds bilaterally. Decreased breath sounds at right base posteriorly. CARDIAC: There was a irregular rate and rhythm without any murmurs. ABDOMEN: Soft and nontender with normal bowel sounds. LYMPH NODES:
--- NOTE | 2021-06-22 09:55 | PM.PNCARD ---
Progress Note: A&P Assessment and Plan (1) Respiratory failure with hypoxia: Qualifiers: Chronicity: acute Qualified Code(s): J96.01 - Acute respiratory failure with hypoxia Code(s): J96.91 - Respiratory failure, unspecified with hypoxia Status: Acute Assessment and Plan: Improved with dialysis and thoracentesis and now diuresis (2) Acute on chronic heart failure with preserved ejection fraction: Code(s): I50.33 - Acute on chronic diastolic (congestive) heart failure Status: Acute Assessment and Plan: Acute right and left heart failure with preserved systolic function. Echo reveals severe RV enlargement and hypokinesis with moderate pulmonary hypertension. CTA was negative for pulmonary embolus. Continue Bumex 2mg IV b.i.d. HTN controlled CHF improved (3) New onset atrial fibrillation: Code(s): I48.91 - Unspecified atrial fibrillation Status: Acute Assessment and Plan: New onset atrial fibrillation, appears paroxysmal on telemetry along with possible intermittent junctional escape rhythm. Currently in sinus rhythm. Heart rate reasonably controlled with metoprolol 50 mg BID. Be cautious with AV orquidea blocking agents given underlying bundle-branch block, intermittent junctional rhythm, and fairly controlled heart rate in atrial fibrillation suggestive of significant underlying conduction system disease. CHADS2 Vasc score 4. A/c with Eliquis 5 mg b.i.d. Continue metoprolol 50 mg BID Continue telemetry. (4) Acute kidney injury superimposed on chronic kidney disease: Code(s): N17.9 - Acute kidney failure, unspecified; N18.9 - Chronic kidney disease, unspecified Status: Acute Assessment and Plan: Started on hemodialysis this admission. Now making good urine on IV Bumex. Dialysis catheter has been removed at this point. (5) Pulmonary hypertension: Code(s): I27.20 - Pulmonary hypertension, unspecified Status: Acute Assessment and Plan: Consistent with cor pulmonale. Moderate severity RVSP 51 mm Hg similar to prior echo June 2020. RV enlargement hypokinesis also similar. Lower extremity Dopplers negative for DVT. CT negative for PE (6) Essential (primary) hypertension: Code(s): I10 - Essential (primary) hypertension Status: Acute Assessment and Plan: Controlled. (7) AMELIA (obstructive sleep apnea): Code(s): G47.33 - Obstructive sleep apnea (adult) (pediatric) Status: Acute Assessment and Plan: Compliance with BiPAP. (8) Lymphedema of both lower extremities: Code(s): I89.0 - Lymphedema, not elsewhere classified Status: Acute Assessment and Plan: Chronic. DVT prophylaxis. Wound care. Jayesh wraps. No DVT on lower extremity venous Dopplers. (9) Hypokalemia: Code(s): E87.6 - Hypokalemia Status: Acute Assessment and Plan: Basic metabolic panel in the morning Additional Plan Subjective Date/time seen: 06/22/21 09:55 Interval history: Cardiology follow up for CHF, Afib 06/09/2021: Feels about the same today, breathing slightly more labored. States he feels like someone is sitting on his chest. No other complaints. Discussed plan of care Date of service 06/10/2021: Had thoracentesis with removal of 1 L fluid from the right lung today. Start dialysis with removal of 4000 cc of fluid. Breathing a little better. Telemetry shows probable AFib versus junctional rhythm rate in the 60s, occasional PVCs versus AFib. Underlying rhythm is a RBBB Date of service 06/11/2021: Feeling pretty good, breathing better, had another dialysis treatment today. Dr. Cuenca put a stitch in the dialysis catheter to reduce the bloody oozing. Patient has not been out of bed today, are tears are uncomfortable for him. Tele - a fib rate 60's. Date of service 06/12/2021: Complaining of shortness of breath this morning. States that last night he
--- NOTE | 2021-06-22 12:36 | PM.IMPN ---
Progress Note: A&P Assessment and Plan (1) Acute on chronic heart failure: Qualifiers: Heart failure type: unspecified Qualified Code(s): I50.9 - Heart failure, unspecified Code(s): I50.9 - Heart failure, unspecified Status: Acute Assessment and Plan: On IV Bumex associated with pleural effusion Cardiology consulted Associated with hypoxic respiratory failure that is improving slowly. - Continue strict I&O and daily weights. - Status post Right Thoracentesis for pleural effusion. - Pleural fluid positive for MSSA on 06/07/21, continue abx. Pulmonology evaluation. No need for repeat thoracentesis. He will continue to have bilateral pleural effusion due to his ongoing congestive heart failure and renal failure (2) Morbid obesity with BMI of 50.0-59.9, adult: Code(s): E66.01 - Morbid (severe) obesity due to excess calories; Z68.43 - Body mass index [BMI] 50.0-59.9, adult Status: Acute Assessment and Plan: - Lifestyle changes as much as possible at discharge. (3) Chronic venous insufficiency: Code(s): I87.2 - Venous insufficiency (chronic) (peripheral) Status: Acute Assessment and Plan: - Jayesh wraps every shift. (4) GERD without esophagitis: Code(s): K21.9 - Gastro-esophageal reflux disease without esophagitis Status: Acute Assessment and Plan: - PPI therapy. (5) Dyslipidemia: Code(s): E78.5 - Hyperlipidemia, unspecified Status: Acute Assessment and Plan: - Heart Healthy Diet (6) Essential (primary) hypertension: Code(s): I10 - Essential (primary) hypertension Status: Acute Assessment and Plan: - Monitor and provide home medications. (7) Peripheral polyneuropathy: Code(s): G62.9 - Polyneuropathy, unspecified Status: Acute Assessment and Plan: - Continue gabapentin (8) AMELIA (obstructive sleep apnea): Code(s): G47.33 - Obstructive sleep apnea (adult) (pediatric) Status: Acute Assessment and Plan: - Home BiPap (9) Acute respiratory failure with hypoxia: Code(s): J96.01 - Acute respiratory failure with hypoxia Status: Acute Assessment and Plan: - Likely secondary to acute on chronic diastolic heart failyure. - As evidenced by bilateral pleural effusion and edama of BLE. - Also has liver cirrhosis and ascites. - Keep K>4 and Mag>2. (10) New onset a-fib: Code(s): I48.91 - Unspecified atrial fibrillation Status: Acute Assessment and Plan: - Eliquis ordered, but currently holding due to bleeding around dialysis site. This has been resumed now - Continue Metoprolol. - Good rate control achieved. (11) UTI (urinary tract infection): Qualifiers: Urinary tract infection type: site unspecified Hematuria presence: without hematuria Qualified Code(s): N39.0 - Urinary tract infection, site not specified Code(s): N39.0 - Urinary tract infection, site not specified Status: Acute Assessment and Plan: Secondary to Enterococcus continue vancomycin patient allergic to penicillin (12) JENA (acute kidney injury): Code(s): N17.9 - Acute kidney failure, unspecified Status: Acute Assessment and Plan: - Nephrology is managing. Appreciate their continued management. - Pt. received dialysis temporarily. - Continue flomax. Pt. with good urine output. - Creatinine has started to improve. - Monitor labs and VS daily. - Avoid Nephrotoxins as much as possible. 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 Patient feels tired shortness of breath on exertion persists. Continues to diurese we
--- NOTE | 2021-06-22 15:06 | PM.PNNEP ---
Progress Note: A&P Assessment and Plan (1) JENA (acute kidney injury): Code(s): N17.9 - Acute kidney failure, unspecified Status: Acute Assessment and Plan: due to: renal venous hypertension contrast exposure (renal function was already deteriorating prior to dye use) creatinine stable if not better than baseline reasonable urine output noted dialysis has been discontinued remains on diuretic therapy (2) Stage 3a chronic kidney disease: Code(s): N18.31 - Chronic kidney disease, stage 3a Status: Chronic Assessment and Plan: baseline creatinine runs ~ 1.4 - 1.7mg/dl in the last few years due to hypertension and chronic pre renal azotemia due to his poorly functioning heart and possibly new liver disease creatinine is stable (3) Acute on chronic heart failure: Qualifiers: Heart failure type: unspecified Qualified Code(s): I50.9 - Heart failure, unspecified Code(s): I50.9 - Heart failure, unspecified Status: Acute Assessment and Plan: as noted by fluid retention, weight gain, and shortness of breath fluid overload/status is improving continue the Bumex 2 mg IV bid while hospitalized switch to oral bumex on discharge or if the creatinine starts to rise - whichever comes 1st (4) Respiratory failure with hypoxia: Qualifiers: Chronicity: acute Qualified Code(s): J96.01 - Acute respiratory failure with hypoxia Code(s): J96.91 - Respiratory failure, unspecified with hypoxia Status: Acute Assessment and Plan: multiple issues could be responsible - worsening CHF versus worsening renal dysfunction versus infection/sepsis versus PE... CTA of chest noted - no PE but pleural effusions present using BiPAP PRN and every night. s/p thoracentesis (on 06/06/21) with 925cc removed original pleural fluid culture with Staph s/p repeat thoracentesis done and repeat cultures with no growth getting vancomycin/ancef (5) New onset atrial fibrillation: Code(s): I48.91 - Unspecified atrial fibrillation Status: Acute Assessment and Plan: new finding partly to blame for decline in status/renal function(?) rate control strategy on anticoagulation (6) Hypertension: Code(s): I10 - Essential (primary) hypertension Status: Chronic Assessment and Plan: reasonable control follow trend of hemodynamics on metoprolol only Okay for discharge from renal perspective when otherwise medically stable Will continue to follow Subjective Date/time seen: 06/22/21 15:06 Seems to be doing reasonably well but states he has the sensation of feeling like he has a hangover in association with chest heaviness but unable to say much more than that; no acute issues/events overnight or earlier this AM. Exam Narrative: General: WD/WN male in NAD Heart: normal S1 and S2; no rub Lungs: decreased at bases Abdomen: soft, nontender, nondistended, positive bowel sounds Extremities: no cyanosis or clubbing; 1 - 2+ edema Skin: chronic venous stasis dermatitis present Objective Data Vital Signs Vital Signs: Vital Signs Temp Pulse Resp BP Pulse Ox 06/22/21 08:23 96 06/22/21 05:41 36.4 C 68 16 128/67 100 06/22/21 04:00 58 L 06/22/21 00:00 67 06/21/21 21:56 36.7 C 68 16 132/72 100 06/21/21 21:43 64 95 06/21/21 21:35 64 95 06/21/21 21:16 60 06/21/21 20:35 96 06/21/21 20:00 67 Intake/Output Intake/Output: Intake & Output 06/19/21 06/20/21 06/21/21 06/22/21 23:59 23:59 23:59 23:59 Intake Total 1358 2062 1558 1350 Output Total 2825 3000 2050 1200 [facility] [phone] 150 Meds/Results Medications: Active Medications Generic Name Dose Route Start Last Admin Trade Name Freq PRN Reason Stop Dose Admin Acetaminophen 162.5 mg 06/09/21 16:17 Acetaminophen Elixir 325 Mg/10.15 Ml Udc PO Q4H PRN Pa
--- NOTE | 2021-06-22 15:06 | P.PNNP_ITS ---
Progress Note: A&P Assessment and Plan (1) JENA (acute kidney injury): Code(s): N17.9 - Acute kidney failure, unspecified Status: Acute Assessment and Plan: * due to: * renal venous hypertension * contrast exposure (renal function was already deteriorating prior to dye use) * creatinine stable if not better than baseline * reasonable urine output noted * dialysis has been discontinued * remains on diuretic therapy (2) Stage 3a chronic kidney disease: Code(s): N18.31 - Chronic kidney disease, stage 3a Status: Chronic Assessment and Plan: * baseline creatinine runs ~ 1.4 - 1.7mg/dl in the last few years * due to hypertension and chronic pre renal azotemia due to his poorly functioning heart and possibly new liver disease * creatinine is stable (3) Acute on chronic heart failure: Qualifiers: Heart failure type: unspecified Qualified Code(s): I50.9 - Heart failure, unspecified Code(s): I50.9 - Heart failure, unspecified Status: Acute Assessment and Plan: * as noted by fluid retention, weight gain, and shortness of breath * fluid overload/status is improving * continue the Bumex 2 mg IV bid while hospitalized * switch to oral bumex on discharge or if the creatinine starts to rise - whichever comes 1st (4) Respiratory failure with hypoxia: Qualifiers: Chronicity: acute Qualified Code(s): J96.01 - Acute respiratory failure with hypoxia Code(s): J96.91 - Respiratory failure, unspecified with hypoxia Status: Acute Assessment and Plan: * multiple issues could be responsible - worsening CHF versus worsening renal dysfunction versus infection/sepsis versus PE... * CTA of chest noted - no PE but pleural effusions present * using BiPAP PRN and every night. * s/p thoracentesis (on 06/06/21) with 925cc removed * original pleural fluid culture with Staph * s/p repeat thoracentesis done and repeat cultures with no growth * getting vancomycin/ancef (5) New onset atrial fibrillation: Code(s): I48.91 - Unspecified atrial fibrillation Status: Acute Assessment and Plan: * new finding * partly to blame for decline in status/renal function(?) * rate control strategy * on anticoagulation (6) Hypertension: Code(s): I10 - Essential (primary) hypertension Status: Chronic Assessment and Plan: * reasonable control * follow trend of hemodynamics * on metoprolol only Okay for discharge from renal perspective when otherwise medically stable Will continue to follow Subjective Date/time seen: 06/22/21 15:06 Seems to be doing reasonably well but states he has the sensation of feeling like he has a hangover in association with chest heaviness but unable to say much more than that; no acute issues/events overnight or earlier this AM. Exam Narrative: General: WD/WN male in NAD Heart: normal S1 and S2; no rub Lungs: decreased at bases Abdomen: soft, nontender, nondistended, positive bowel sounds Extremities: no cyanosis or clubbing; 1 - 2+ edema Skin: chronic venous stasis dermatitis present Objective Data Vital Signs Vital Signs: Vital Signs Temp Pulse Resp BP Pulse Ox 06/22/21 08:23 96 06/22/21 05:41 36.4 C 68 16 128/67 100 06/22/21 04:00 58 L 06/22/21 00:00 67 06/21/21 21:56 36.7 C 68 16 132
[2021-06-23] VITALS (13 sets, daily range): BP systolic 115–144; BP diastolic 52–77; PULSE 67–81; RESP 14–18; TEMP 36.1–37.3; O2SAT 96–100
[2021-06-23] MEDS: LEVOTHYROXINE SODIUM 100 MCG TABLET 200 MCG PO (05:55)
[2021-06-23] MEDS: LEVOTHYROXINE SODIUM 25 MCG TABLET PO (05:55)
[2021-06-23 06:30] LABS: Alanine Aminotransferase 6 U/L (4-50); Albumin Level 3.9 g/dL (3.5-5.1); Alkaline Phosphatase 79 U/L (38-126); Anion Gap 6 mmol/L (8-16); Aspartate Amino Transferase 28 U/L (17-59); Bilirubin,Total 0.8 mg/dL (0.2-1.3); Blood Urea Nitrogen 17 mg/dL (9-20); Calcium 8.8 mg/dL (8.4-10.2); Carbon Dioxide 33 mmol/L (22-30); Chloride 98 mmol/L (98-107); Estimated CRCL calculation 70 ml/min; Estimated Glomerular Filt Rate 50; Glucose 92 mg/dL (65-110); Magnesium 2.2 mg/dL (1.6-2.3); Potassium 3.4 mmol/L (3.4-5.0); Sodium 137 mmol/L (137-145)
[2021-06-23 06:34] LABS: Basophils Absolute Auto 0.1 K/mm3 (0.0-0.1); Basophils Percent Auto 1.7 % (0.2-1.2); Eosinophils Absolute Auto 0.4 K/mm3 (0-0.3); Eosinophils Percent Auto 5.6 % (0-4.4); Hematocrit 40.8 % (42.0-52.0); Hemoglobin 11.7 g/dL (14.0-18.0); Immature Granulocyte Absolute 0.04 K/mm3 (0.00-0.031); Immature Granulocyte Percent A 0.6 % (0-0.5); Lymphocytes Absolute Auto 0.73 K/mm3 (0.9-3.2); Lymphocytes Percent Auto 10.6 % (18.3-44.2); Mean Corpuscular HGB Conc 28.7 g/dl (32-36); Mean Corpuscular Hemoglobin 26.6 pg (26-34); Mean Corpuscular Volume 92.7 fl (80-100); Monocytes Absolute Auto 0.5 K/mm3 (0.1-0.6); Monocytes Percent Auto 7.5 % (2.6-8.5); Neutrophils Absolute Auto 5.1 K/mm3 (1.3-6.7); Platelet Count Result 375 k/mm3 (150-375); Red Cell Distribution Width 16.5 % (11.5-14.5); White Blood Count 6.9 K/mm3 (4.5-10.0)
[2021-06-23] MEDS: METOPROLOL TARTRATE 50 MG TAB PO ×2 (08:40→21:00)
[2021-06-23] MEDS: LORATADINE 10 MG TABLET PO (08:44)
[2021-06-23] MEDS: GABAPENTIN 300 MG CAPSULE PO ×4 (08:44→20:50)
[2021-06-23] MEDS: acetaZOLAMIDE TAB 250 MG TABLET 500 MG PO ×2 (08:44→17:35)
[2021-06-23] MEDS: APIXABAN 5 MG TABLET PO ×2 (08:44→20:50)
[2021-06-23] MEDS: PANTOPRAZOLE 40 MG TABLET PO (08:44)
[2021-06-23] MEDS: LIDOCAINE 5% PATCH 1 PATCH TRANSDERM (08:44)
[2021-06-23] MEDS: TAMSULOSIN HCL 0.4 MG CAPSULE PO (08:45)
[2021-06-23] MEDS: PSYLLIUM POWDER PACKET 1 PACKET PO (08:45)
[2021-06-23] MEDS: FLUTICASONE PROPIONATE 0.05% NA SPR 16 GM BTL (*BKC) 1 SPRAY NASAL (08:46)
[2021-06-23] MEDS: TOLNAFTATE 1% POWDER 45 GM BTL 1 APPLIC TOPICAL ×2 (08:46→20:50)
[2021-06-23] MEDS: LACTIC ACID 12% LOTION 225 BTL 1 APPLIC TOPICAL (08:46)
[2021-06-23] MEDS: BUMETANIDE INJ 2.5 MG/10 ML VIAL 2 MG IV PUSH ×2 (08:46→17:34)
--- NOTE | 2021-06-23 10:47 | P.PNCA_ITS ---
Progress Note: A&P Assessment and Plan (1) Respiratory failure with hypoxia: Qualifiers: Chronicity: acute Qualified Code(s): J96.01 - Acute respiratory failure with hypoxia Code(s): J96.91 - Respiratory failure, unspecified with hypoxia Status: Acute Assessment and Plan: Improved with dialysis and thoracentesis and now diuresis (2) Acute on chronic heart failure with preserved ejection fraction: Code(s): I50.33 - Acute on chronic diastolic (congestive) heart failure Status: Acute Assessment and Plan: Acute right and left heart failure with preserved systolic function. Echo reveals severe RV enlargement and hypokinesis with moderate pulmonary hypertension. CTA was negative for pulmonary embolus. * Continue Bumex 2mg IV b.i.d. * HTN controlled * CHF improved * ?Discharge planning (3) New onset atrial fibrillation: Code(s): I48.91 - Unspecified atrial fibrillation Status: Acute Assessment and Plan: New onset atrial fibrillation, appears paroxysmal on telemetry along with possible intermittent junctional escape rhythm. Currently in sinus rhythm. Heart rate reasonably controlled with metoprolol 50 mg BID. Be cautious with AV orquidea blocking agents given underlying bundle-branch block, intermittent junctional rhythm, and fairly controlled heart rate in atrial fibrillation suggestive of significant underlying conduction system disease. * CHADS2 Vasc score 4. A/c with Eliquis 5 mg b.i.d. * Continue metoprolol 50 mg BID * Continue telemetry. (4) Acute kidney injury superimposed on chronic kidney disease: Code(s): N17.9 - Acute kidney failure, unspecified; N18.9 - Chronic kidney disease, unspecified Status: Acute Assessment and Plan: Started on hemodialysis this admission. Now making good urine on IV Bumex. Dialysis catheter has been removed at this point. (5) Pulmonary hypertension: Code(s): I27.20 - Pulmonary hypertension, unspecified Status: Acute Assessment and Plan: Consistent with cor pulmonale. Moderate severity RVSP 51 mm Hg similar to prior echo June 2020. RV enlargement hypokinesis also similar. Lower extremity Dopplers negative for DVT. CT negative for PE (6) Essential (primary) hypertension: Code(s): I10 - Essential (primary) hypertension Status: Acute Assessment and Plan: Controlled. (7) AMELIA (obstructive sleep apnea): Code(s): G47.33 - Obstructive sleep apnea (adult) (pediatric) Status: Acute Assessment and Plan: Compliance with BiPAP. (8) Lymphedema of both lower extremities: Code(s): I89.0 - Lymphedema, not elsewhere classified Status: Acute Assessment and Plan: Chronic. DVT prophylaxis. Wound care. Jayesh wraps. No DVT on lower extremity venous Dopplers. (9) Hypokalemia: Code(s): E87.6 - Hypokalemia Status: Acute Assessment and Plan: Basic metabolic panel in the morning Additional Plan Subjective Date/time seen: 06/23/21 10:47 Interval history: Cardiology follow up for CHF, Afib 06/09/2021: Feels about the same today, breathing slightly more labored. States he feels like someone is sitting on his chest. No other complaints. Discussed plan of care Date of service 06/10/2021: Had thoracentesis with removal of 1 L fluid from the right lung today. Start dialysis with removal of 4000 cc of fluid. Breathing a little better. Telemetry shows probable AFib versus junctional rhythm rate in the 60s, occasional PVCs versus AFib. Underlying rhythm is a
--- NOTE | 2021-06-23 13:08 | P.PNNP_ITS ---
Progress Note: A&P Assessment and Plan (1) JENA (acute kidney injury): Code(s): N17.9 - Acute kidney failure, unspecified Status: Acute Assessment and Plan: * due to: * renal venous hypertension from volume overload * contrast exposure (renal function was already deteriorating prior to dye use) * creatinine stable * reasonable urine output noted * dialysis has been discontinued * remains on diuretic therapy (2) Stage 3a chronic kidney disease: Code(s): N18.31 - Chronic kidney disease, stage 3a Status: Chronic Assessment and Plan: * baseline creatinine runs ~ 1.4 - 1.7mg/dl in the last few years * due to hypertension and chronic pre renal azotemia due to his poorly functioning heart and possibly new liver disease * creatinine is stable (3) Acute on chronic heart failure: Qualifiers: Heart failure type: unspecified Qualified Code(s): I50.9 - Heart failure, unspecified Code(s): I50.9 - Heart failure, unspecified Status: Acute Assessment and Plan: * as noted by fluid retention, weight gain, and shortness of breath * fluid overload/status is improving * continue the Bumex 2 mg IV bid while hospitalized * switch to oral bumex on discharge or if the creatinine starts to rise - whichever comes 1st (4) Respiratory failure with hypoxia: Qualifiers: Chronicity: acute Qualified Code(s): J96.01 - Acute respiratory failure with hypoxia Code(s): J96.91 - Respiratory failure, unspecified with hypoxia Status: Acute Assessment and Plan: * multiple issues could be responsible - worsening CHF versus worsening renal dysfunction versus infection/sepsis versus PE... * CTA of chest noted - no PE but pleural effusions present * using BiPAP PRN and every night. * s/p thoracentesis (on 06/06/21) with 925cc removed * original pleural fluid culture with Staph * s/p repeat thoracentesis done and repeat cultures with no growth * getting vancomycin/ancef (5) New onset atrial fibrillation: Code(s): I48.91 - Unspecified atrial fibrillation Status: Acute Assessment and Plan: * new finding * partly to blame for decline in status/renal function(?) * rate control strategy * on anticoagulation (6) Hypertension: Code(s): I10 - Essential (primary) hypertension Status: Chronic Assessment and Plan: * reasonable control * follow trend of hemodynamics * on metoprolol only Will continue to follow Subjective Date/time seen: 06/23/21 13:08 No real significant change -- ongoing diuresis with relative stability in kidney function but he continues to report shortness of breath and chest heaviness despite on interventions to date; daughter at bedside and we discussed the situation. Exam Narrative: General: WD/WN male in NAD Heart: normal S1 and S2; no rub Lungs: decreased at bases Abdomen: soft, nontender, nondistended, positive bowel sounds Extremities: no cyanosis or clubbing; 1 - 2+ edema Skin: chronic venous stasis dermatitis unchanged Objective Data Vital Signs Vital Signs: Vital Signs Temp Pulse Resp BP Pulse Ox 06/23/21 08:45 96 06/23/21 08:40 77 06/23/21 05:53 36.4 C 69 14 144/77 H 100 06/23/21 04:00 68 06/23/21 00:00 67 06/22/21 22:00 36.2 C L 68 16 136/71 100 06/22/21 20
--- NOTE | 2021-06-23 13:08 | PM.PNNEP ---
Progress Note: A&P Assessment and Plan (1) JENA (acute kidney injury): Code(s): N17.9 - Acute kidney failure, unspecified Status: Acute Assessment and Plan: due to: renal venous hypertension from volume overload contrast exposure (renal function was already deteriorating prior to dye use) creatinine stable reasonable urine output noted dialysis has been discontinued remains on diuretic therapy (2) Stage 3a chronic kidney disease: Code(s): N18.31 - Chronic kidney disease, stage 3a Status: Chronic Assessment and Plan: baseline creatinine runs ~ 1.4 - 1.7mg/dl in the last few years due to hypertension and chronic pre renal azotemia due to his poorly functioning heart and possibly new liver disease creatinine is stable (3) Acute on chronic heart failure: Qualifiers: Heart failure type: unspecified Qualified Code(s): I50.9 - Heart failure, unspecified Code(s): I50.9 - Heart failure, unspecified Status: Acute Assessment and Plan: as noted by fluid retention, weight gain, and shortness of breath fluid overload/status is improving continue the Bumex 2 mg IV bid while hospitalized switch to oral bumex on discharge or if the creatinine starts to rise - whichever comes 1st (4) Respiratory failure with hypoxia: Qualifiers: Chronicity: acute Qualified Code(s): J96.01 - Acute respiratory failure with hypoxia Code(s): J96.91 - Respiratory failure, unspecified with hypoxia Status: Acute Assessment and Plan: multiple issues could be responsible - worsening CHF versus worsening renal dysfunction versus infection/sepsis versus PE... CTA of chest noted - no PE but pleural effusions present using BiPAP PRN and every night. s/p thoracentesis (on 06/06/21) with 925cc removed original pleural fluid culture with Staph s/p repeat thoracentesis done and repeat cultures with no growth getting vancomycin/ancef (5) New onset atrial fibrillation: Code(s): I48.91 - Unspecified atrial fibrillation Status: Acute Assessment and Plan: new finding partly to blame for decline in status/renal function(?) rate control strategy on anticoagulation (6) Hypertension: Code(s): I10 - Essential (primary) hypertension Status: Chronic Assessment and Plan: reasonable control follow trend of hemodynamics on metoprolol only Will continue to follow Subjective Date/time seen: 06/23/21 13:08 No real significant change -- ongoing diuresis with relative stability in kidney function but he continues to report shortness of breath and chest heaviness despite on interventions to date; daughter at bedside and we discussed the situation. Exam Narrative: General: WD/WN male in NAD Heart: normal S1 and S2; no rub Lungs: decreased at bases Abdomen: soft, nontender, nondistended, positive bowel sounds Extremities: no cyanosis or clubbing; 1 - 2+ edema Skin: chronic venous stasis dermatitis unchanged Objective Data Vital Signs Vital Signs: Vital Signs Temp Pulse Resp BP Pulse Ox 06/23/21 08:45 96 06/23/21 08:40 77 06/23/21 05:53 36.4 C 69 14 144/77 H 100 06/23/21 04:00 68 06/23/21 00:00 67 06/22/21 22:00 36.2 C L 68 16 136/71 100 06/22/21 20:53 58 L 06/22/21 20:00 73 96 06/22/21 19:57 95 06/22/21 16:00 72 06/22/21 15:14 36.1 C L 68 16 101/63 100 Intake/Output Intake/Output: Intake & Output 06/20/21 06/21/21 06/22/21 06/23/21 23:59 23:59 23:59 23:59 Intake Total 2061 1558 1470 354 Output Total 3000 2049 3500 800 [facility] [place] [phone] Meds/Results Medications: Active Medications Generic Name Dose Route Start Last Admin Trade Name Freq PRN Reason Stop Dose Admin Acetaminophen 162.5 mg 06/09/21 16:17 Acetaminophen Elixir 325 Mg/10.15 Ml Udc PO Q4H PRN Pain Rated 4-6 Ac
--- NOTE | 2021-06-23 13:59 | PCNFU ---
Nutrition Follow-Up Complete:pt reports constipated without a BM for multiple days. Inadequate oral intake related to decreased appetite as evidenced by reported poor PO intake Goal:Pt to meet greater than 50% of estimated nutritional needs Pt current nutrition is Renal Dialysis. Nutrition recommendation: Add Prune juice to tray Last recorded weight is 167.4 kg. Bowel Motility: constipated Labs Reviewed:CRE:1.4 Meds Noted: Skin: Additional Notes: Pt reports fair appetite, intake per usual, 50-75% charted most meals. Nepro shakes in place BID. Reported being constipated, on miralax and metamucil started today. Will monitor labs, medication, wt, and reported intake as well as BM, every 5 days
--- NOTE | 2021-06-23 15:42 | PM.IMPN ---
Progress Note: A&P Assessment and Plan (1) Acute on chronic heart failure: Qualifiers: Heart failure type: unspecified Qualified Code(s): I50.9 - Heart failure, unspecified Code(s): I50.9 - Heart failure, unspecified Status: Acute Assessment and Plan: On IV Bumex associated with pleural effusion Cardiology consulted Associated with hypoxic respiratory failure that is improving slowly. - Continue strict I&O and daily weights. - Status post Right Thoracentesis for pleural effusion. - Pleural fluid positive for MSSA on 06/07/21, continue abx. Pulmonology evaluation. No need for repeat thoracentesis. He will continue to have bilateral pleural effusion due to his ongoing congestive heart failure and renal failure MSSA on pleural fluid positive on 06/07/2021 remains on vancomycin since 06/07/21 till 06/23/2021 will stop vancomycin today (2) Morbid obesity with BMI of 50.0-59.9, adult: Code(s): E66.01 - Morbid (severe) obesity due to excess calories; Z68.43 - Body mass index [BMI] 50.0-59.9, adult Status: Acute Assessment and Plan: - Lifestyle changes as much as possible at discharge. (3) Chronic venous insufficiency: Code(s): I87.2 - Venous insufficiency (chronic) (peripheral) Status: Acute Assessment and Plan: - Jayesh wraps every shift. (4) GERD without esophagitis: Code(s): K21.9 - Gastro-esophageal reflux disease without esophagitis Status: Acute Assessment and Plan: - PPI therapy. (5) Dyslipidemia: Code(s): E78.5 - Hyperlipidemia, unspecified Status: Acute Assessment and Plan: - Heart Healthy Diet (6) Essential (primary) hypertension: Code(s): I10 - Essential (primary) hypertension Status: Acute Assessment and Plan: - Monitor and provide home medications. (7) Peripheral polyneuropathy: Code(s): G62.9 - Polyneuropathy, unspecified Status: Acute Assessment and Plan: - Continue gabapentin (8) AMELIA (obstructive sleep apnea): Code(s): G47.33 - Obstructive sleep apnea (adult) (pediatric) Status: Acute Assessment and Plan: - Home BiPap (9) Acute respiratory failure with hypoxia: Code(s): J96.01 - Acute respiratory failure with hypoxia Status: Acute Assessment and Plan: - Likely secondary to acute on chronic diastolic heart failyure. - As evidenced by bilateral pleural effusion and edama of BLE. - Also has liver cirrhosis and ascites. - Keep K>4 and Mag>2. (10) New onset a-fib: Code(s): I48.91 - Unspecified atrial fibrillation Status: Acute Assessment and Plan: - Eliquis ordered, but currently holding due to bleeding around dialysis site. This has been resumed now - Continue Metoprolol. - Good rate control achieved. (11) UTI (urinary tract infection): Qualifiers: Urinary tract infection type: site unspecified Hematuria presence: without hematuria Qualified Code(s): N39.0 - Urinary tract infection, site not specified Code(s): N39.0 - Urinary tract infection, site not specified Status: Acute Assessment and Plan: Secondary to Enterococcus continue vancomycin patient allergic to penicillin (12) JENA (acute kidney injury): Code(s): N17.9 - Acute kidney failure, unspecified Status: Acute Assessment and Plan: - Nephrology is managing. Appreciate their continued management. - Pt. received dialysis temporarily. - Continue flomax. Pt. with good urine output. - Creatinine has started to improve. - Monitor labs and VS daily. - Avoid Nephrotoxins as much as possible. 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
[2021-06-24] VITALS (16 sets, daily range): BP systolic 127–131; BP diastolic 62–63; PULSE 67–81; RESP 14–16; TEMP 36.1–36.2; O2SAT 92–100
[2021-06-24] MEDS: LEVOTHYROXINE SODIUM 25 MCG TABLET PO (05:37)
[2021-06-24] MEDS: LEVOTHYROXINE SODIUM 100 MCG TABLET 200 MCG PO (05:37)
[2021-06-24 08:06] LABS: Alanine Aminotransferase 7 U/L (4-50); Albumin Level 3.8 g/dL (3.5-5.1); Alkaline Phosphatase 85 U/L (38-126); Anion Gap 9 mmol/L (8-16); Aspartate Amino Transferase 28 U/L (17-59); Bilirubin,Total 0.8 mg/dL (0.2-1.3); Blood Urea Nitrogen 19 mg/dL (9-20); Calcium 8.9 mg/dL (8.4-10.2); Carbon Dioxide 29 mmol/L (22-30); Chloride 100 mmol/L (98-107); Estimated CRCL calculation 70 ml/min; Estimated Glomerular Filt Rate 50; Glucose 97 mg/dL (65-110); Magnesium 2.2 mg/dL (1.6-2.3); Potassium 3.5 mmol/L (3.4-5.0); Sodium 138 mmol/L (137-145)
[2021-06-24] MEDS: GABAPENTIN 300 MG CAPSULE PO ×4 (08:39→20:10)
[2021-06-24] MEDS: LIDOCAINE 5% PATCH 1 PATCH TRANSDERM (08:39)
[2021-06-24] MEDS: acetaZOLAMIDE TAB 250 MG TABLET 500 MG PO ×2 (08:40→16:56)
[2021-06-24] MEDS: PSYLLIUM POWDER PACKET 1 PACKET PO (08:40)
[2021-06-24] MEDS: PANTOPRAZOLE 40 MG TABLET PO (08:40)
[2021-06-24] MEDS: TAMSULOSIN HCL 0.4 MG CAPSULE PO (08:40)
[2021-06-24] MEDS: LORATADINE 10 MG TABLET PO (08:40)
[2021-06-24] MEDS: BUMETANIDE INJ 2.5 MG/10 ML VIAL 2 MG IV PUSH ×2 (08:40→16:56)
[2021-06-24] MEDS: METOPROLOL TARTRATE 50 MG TAB PO ×2 (08:41→20:11)
[2021-06-24] MEDS: APIXABAN 5 MG TABLET PO ×2 (08:41→20:10)
[2021-06-24] MEDS: FLUTICASONE PROPIONATE 0.05% NA SPR 16 GM BTL (*BKC) 1 SPRAY NASAL (08:43)
[2021-06-24] MEDS: LACTIC ACID 12% LOTION 225 BTL 1 APPLIC TOPICAL (08:43)
[2021-06-24] MEDS: TOLNAFTATE 1% POWDER 45 GM BTL 1 APPLIC TOPICAL ×2 (08:43→20:11)
[2021-06-24 08:44] LABS: Basophils Absolute Auto 0.1 K/mm3 (0.0-0.1); Basophils Percent Auto 1.7 % (0.2-1.2); Eosinophils Absolute Auto 0.4 K/mm3 (0-0.3); Eosinophils Percent Auto 5.7 % (0-4.4); Hematocrit 40.4 % (42.0-52.0); Hemoglobin 11.6 g/dL (14.0-18.0); Immature Granulocyte Absolute 0.02 K/mm3 (0.00-0.031); Immature Granulocyte Percent A 0.3 % (0-0.5); Lymphocytes Absolute Auto 0.96 K/mm3 (0.9-3.2); Lymphocytes Percent Auto 12.8 % (18.3-44.2); Mean Corpuscular HGB Conc 28.7 g/dl (32-36); Mean Corpuscular Hemoglobin 26.8 pg (26-34); Mean Corpuscular Volume 93.3 fl (80-100); Mean Platelet Volume 11.4 fl (7.4-10.4); Monocytes Absolute Auto 0.6 K/mm3 (0.1-0.6); Monocytes Percent Auto 8.3 % (2.6-8.5); Neutrophils Absolute Auto 5.3 K/mm3 (1.3-6.7); Neutrophils Percent Auto 71.2 % (45.5-73.1); Platelet Count Result 367 k/mm3 (150-375); Red Blood Count 4.33 M/mm3 (4.6-6.20); Red Cell Distribution Width 16.9 % (11.5-14.5); White Blood Count 7.5 K/mm3 (4.5-10.0)
[2021-06-24] MEDS: ACETAMINOPHEN 500 MG TABLET PO (10:43)
--- NOTE | 2021-06-24 12:34 | PM.PNCARD ---
Progress Note: A&P Additional Plan 71-year-old man with severe volume overload diastolic dysfunction also severe obesity hypoventilation syndrome with secondary hypertension that is likely irreversible. The patient is concerned that he may require oxyge at home. Discussed with him in some detail that this would have to be assessed and prescribed in the hospital in terms of if he requires home O2 supplementation. He has not required this previously. Pulmonology has signed off of the case as they believe he has end-stage diastolic heart failure and there is nothing else they can do for him at this point. Anirudh Wise MD [facility] Subjective Date/time seen: Date of service: 06/24/21 12:34 Interval history: Cardiology follow up for CHF, Afib 06/09/2021: Feels about the same today, breathing slightly more labored. States he feels like someone is sitting on his chest. No other complaints. Discussed plan of care Date of service 06/10/2021: Had thoracentesis with removal of 1 L fluid from the right lung today. Start dialysis with removal of 4000 cc of fluid. Breathing a little better. Telemetry shows probable AFib versus junctional rhythm rate in the 60s, occasional PVCs versus AFib. Underlying rhythm is a RBBB Date of service 06/11/2021: Feeling pretty good, breathing better, had another dialysis treatment today. Dr. Cuenca put a stitch in the dialysis catheter to reduce the bloody oozing. Patient has not been out of bed today, are tears are uncomfortable for him. Tele - a fib rate 60's. Date of service 06/12/2021: Complaining of shortness of breath this morning. States that last night he became acutely short of breath and felt like he was gasping for air. Feels better on his home BiPAP Date of service 06/13/2021: Feeling better today. No longer feeling short of breath. He denies any chest pain or palpitations. In sinus rhythm on telemetry. Date of service 06/15/2021: continues to feel well. Denies shortness of breath, palpitations, chest pain. He is making good urine with diuresis. Plan to remove dialysis catheter. Date of service 06/17/2021: Swelling continues to improve. No shortness of breath. Does have vague feeling of some heaviness of the evening but improves whenever he lays down and put his CPAP on. Date of service 06/18/2021: Continues to improve. Overall doing much better. No chest pain. No shortness of breath. Date of service 06/19/2021: No new complaints. Simply have some back pain from lying in bed. No chest pain, shortness of breath. Date of service 06/20/2021: Complains of some chest heaviness In the afternoon. No new unusual shortness of breath. swelling continues to improve Date of service 06/21/2021: Still has swelling and some shortness of breath but slow and gradual improved Date of service 06/22/2021: He feels about the same today. He says he has a constant feeling that he compares to being hungover. He does not have any chest pain, palpitations, or new/different shortness of breath. He does say that in the late afternoons he becomes suddenly short of breath and feels chest heaviness which subsides when he puts on his BiPAP. Date of service 06/23/2021: Feels about the same. Shortness of breath and swelling persist. He is becoming frustrated that he remains short of breath despite aggressive treatment. Date of service 06/24/2021: Patient does not notice any significant change. As above he still is experiencing shortness of breath with modest activity. Explained to him that he likely has irreversible pulmonary hypertension as a likely reason for this regardless of how much fluid we are able to removed. He is wondering if he will need oxygen at home. Exam Narrative: Pleasant alert older male sitting on the edge of the bed in no distress. Const: General: comfortable, no acute distress, alert and awake; No confusion Orientation/consciousness: patient oriented x3 and No confusio
--- NOTE | 2021-06-24 13:17 | P.PNNP_ITS ---
Progress Note: A&P Assessment and Plan (1) JENA (acute kidney injury): Code(s): N17.9 - Acute kidney failure, unspecified Status: Acute Assessment and Plan: * due to: * renal venous hypertension from chronic volume overload * contrast exposure (renal function was already deteriorating prior to dye use) * creatinine stable * reasonable urine output noted * dialysis has been discontinued * remains on diuretic therapy (2) Stage 3a chronic kidney disease: Code(s): N18.31 - Chronic kidney disease, stage 3a Status: Chronic Assessment and Plan: * baseline creatinine runs ~ 1.4 - 1.7mg/dl in the last few years * due to hypertension and chronic pre renal azotemia due to his poorly functioning heart and possibly new liver disease * creatinine is stable (3) Acute on chronic heart failure: Qualifiers: Heart failure type: unspecified Qualified Code(s): I50.9 - Heart failure, unspecified Code(s): I50.9 - Heart failure, unspecified Status: Acute Assessment and Plan: * as noted by fluid retention, weight gain, and shortness of breath * fluid overload/status is improving * continue the Bumex 2 mg IV bid while hospitalized * switch to oral bumex on discharge or if the creatinine starts to rise - whiche estela comes 1st (4) Respiratory failure with hypoxia: Qualifiers: Chronicity: acute Qualified Code(s): J96.01 - Acute respiratory failure with hypoxia Code(s): J96.91 - Respiratory failure, unspecified with hypoxia Status: Acute Assessment and Plan: * likely going to be a chronic issue * likely from end-stage diastolic dysfunction, severe obesity hypoventilation syndrome, and pulmonary HTN * CTA of chest noted - no PE but pleural effusions present * using BiPAP PRN and every night * s/p thoracentesis (on 06/06/21) with 925cc removed * original pleural fluid culture with Staph * s/p repeat thoracentesis done and repeat cultures with no growth -- off antibiotics (5) New onset atrial fibrillation: Code(s): I48.91 - Unspecified atrial fibrillation Status: Acute Assessment and Plan: * new finding * partly to blame for decline in status/renal function(?) * rate control strategy * on anticoagulation (6) Hypertension: Code(s): I10 - Essential (primary) hypertension Status: Chronic Assessment and Plan: * reasonable control * follow trend of hemodynamics * on metoprolol only Will continue to follow Subjective Date/time seen: 06/24/21 13:17 No real significant change -- still reports shortness of breath with moderate activity (and this will likely be a chronic issue given evidence to date); reasonable diuresis still noted with current/ongoing therapy; no issues/events overnight or earlier this AM. Exam Narrative: General: WD/WN male in NAD Heart: normal S1 and S2; no rub Lungs: decreased at bases Abdomen: soft, nontender, nondistended, positive bowel sounds Extremities: no cyanosis or clubbing; 1 - 2+ edema Skin: chronic venous stasis dermatitis present Objective Data Vital Signs Vital Signs: Vital Signs Temp Pulse Resp BP Pulse Ox Pulse Ox 06/24/21 10:54 98 06/24/21 10:03 92 06/24/21 08:41 70 06/24/21 08:40 96 06/24/21 06:00 36.1 C L 67 16 127/62 99 06/24/21 04:00
--- NOTE | 2021-06-24 13:17 | PM.PNNEP ---
Progress Note: A&P Assessment and Plan (1) JENA (acute kidney injury): Code(s): N17.9 - Acute kidney failure, unspecified Status: Acute Assessment and Plan: due to: renal venous hypertension from chronic volume overload contrast exposure (renal function was already deteriorating prior to dye use) creatinine stable reasonable urine output noted dialysis has been discontinued remains on diuretic therapy (2) Stage 3a chronic kidney disease: Code(s): N18.31 - Chronic kidney disease, stage 3a Status: Chronic Assessment and Plan: baseline creatinine runs ~ 1.4 - 1.7mg/dl in the last few years due to hypertension and chronic pre renal azotemia due to his poorly functioning heart and possibly new liver disease creatinine is stable (3) Acute on chronic heart failure: Qualifiers: Heart failure type: unspecified Qualified Code(s): I50.9 - Heart failure, unspecified Code(s): I50.9 - Heart failure, unspecified Status: Acute Assessment and Plan: as noted by fluid retention, weight gain, and shortness of breath fluid overload/status is improving continue the Bumex 2 mg IV bid while hospitalized switch to oral bumex on discharge or if the creatinine starts to rise - whichever comes 1st (4) Respiratory failure with hypoxia: Qualifiers: Chronicity: acute Qualified Code(s): J96.01 - Acute respiratory failure with hypoxia Code(s): J96.91 - Respiratory failure, unspecified with hypoxia Status: Acute Assessment and Plan: likely going to be a chronic issue likely from end-stage diastolic dysfunction, severe obesity hypoventilation syndrome, and pulmonary HTN CTA of chest noted - no PE but pleural effusions present using BiPAP PRN and every night s/p thoracentesis (on 06/06/21) with 925cc removed original pleural fluid culture with Staph s/p repeat thoracentesis done and repeat cultures with no growth -- off antibiotics (5) New onset atrial fibrillation: Code(s): I48.91 - Unspecified atrial fibrillation Status: Acute Assessment and Plan: new finding partly to blame for decline in status/renal function(?) rate control strategy on anticoagulation (6) Hypertension: Code(s): I10 - Essential (primary) hypertension Status: Chronic Assessment and Plan: reasonable control follow trend of hemodynamics on metoprolol only Will continue to follow Subjective Date/time seen: 06/24/21 13:17 No real significant change -- still reports shortness of breath with moderate activity (and this will likely be a chronic issue given evidence to date); reasonable diuresis still noted with current/ongoing therapy; no issues/events overnight or earlier this AM. Exam Narrative: General: WD/WN male in NAD Heart: normal S1 and S2; no rub Lungs: decreased at bases Abdomen: soft, nontender, nondistended, positive bowel sounds Extremities: no cyanosis or clubbing; 1 - 2+ edema Skin: chronic venous stasis dermatitis present Objective Data Vital Signs Vital Signs: Vital Signs Temp Pulse Resp BP Pulse Ox Pulse Ox 06/24/21 10:54 98 06/24/21 10:03 92 06/24/21 08:41 70 06/24/21 08:40 96 06/24/21 06:00 36.1 C L 67 16 127/62 99 06/24/21 04:00 68 06/24/21 00:00 68 06/23/21 22:00 37.3 C 81 16 142/72 H 100 06/23/21 21:00 68 06/23/21 20:50 98 06/23/21 20:00 74 06/23/21 16:00 68 06/23/21 14:00 36.1 C L 68 18 115/52 L 100 Intake/Output Intake/Output: Intake & Output 06/21/21 06/22/21 06/23/21 06/24/21 23:59 23:59 23:59 23:59 Intake Total 1558 1470 1034 990 Output Total 2049 3500 1850 1450 [facility] [phone] Meds/Results Medications: Active Medications Generic Name Dose Route Start Last Admin Trade Name Freq PRN Reason Stop Dose Admin Acetaminophen 162.5 mg 03
--- NOTE | 2021-06-24 14:55 | PM.IMPN ---
Progress Note: A&P Assessment and Plan (1) Acute on chronic heart failure: Qualifiers: Heart failure type: unspecified Qualified Code(s): I50.9 - Heart failure, unspecified Code(s): I50.9 - Heart failure, unspecified Status: Acute Assessment and Plan: On IV Bumex associated with pleural effusion Cardiology consulted Associated with hypoxic respiratory failure that is improving slowly. - Continue strict I&O and daily weights. - Status post Right Thoracentesis for pleural effusion. - Pleural fluid positive for MSSA on 06/07/21, continue abx. Pulmonology evaluation. No need for repeat thoracentesis. He will continue to have bilateral pleural effusion due to his ongoing congestive heart failure and renal failure MSSA on pleural fluid positive on 06/07/2021 remains on vancomycin since 06/07/21 till 06/23/2021. Stopped vancomycin 06/23/2021 (2) Morbid obesity with BMI of 50.0-59.9, adult: Code(s): E66.01 - Morbid (severe) obesity due to excess calories; Z68.43 - Body mass index [BMI] 50.0-59.9, adult Status: Acute Assessment and Plan: - Lifestyle changes as much as possible at discharge. (3) Chronic venous insufficiency: Code(s): I87.2 - Venous insufficiency (chronic) (peripheral) Status: Acute Assessment and Plan: - Jayesh wraps every shift. (4) GERD without esophagitis: Code(s): K21.9 - Gastro-esophageal reflux disease without esophagitis Status: Acute Assessment and Plan: - PPI therapy. (5) Dyslipidemia: Code(s): E78.5 - Hyperlipidemia, unspecified Status: Acute Assessment and Plan: - Heart Healthy Diet (6) Essential (primary) hypertension: Code(s): I10 - Essential (primary) hypertension Status: Acute Assessment and Plan: - Monitor and provide home medications. (7) Peripheral polyneuropathy: Code(s): G62.9 - Polyneuropathy, unspecified Status: Acute Assessment and Plan: - Continue gabapentin (8) AMELIA (obstructive sleep apnea): Code(s): G47.33 - Obstructive sleep apnea (adult) (pediatric) Status: Acute Assessment and Plan: - Home BiPap (9) Acute respiratory failure with hypoxia: Code(s): J96.01 - Acute respiratory failure with hypoxia Status: Acute Assessment and Plan: - Likely secondary to acute on chronic diastolic heart failyure. - As evidenced by bilateral pleural effusion and edama of BLE. - Also has liver cirrhosis and ascites. - Keep K>4 and Mag>2. (10) New onset a-fib: Code(s): I48.91 - Unspecified atrial fibrillation Status: Acute Assessment and Plan: - Eliquis ordered, but currently holding due to bleeding around dialysis site. This has been resumed now - Continue Metoprolol. - Good rate control achieved. (11) UTI (urinary tract infection): Qualifiers: Urinary tract infection type: site unspecified Hematuria presence: without hematuria Qualified Code(s): N39.0 - Urinary tract infection, site not specified Code(s): N39.0 - Urinary tract infection, site not specified Status: Acute Assessment and Plan: Secondary to Enterococcus continue vancomycin patient allergic to penicillin (12) JENA (acute kidney injury): Code(s): N17.9 - Acute kidney failure, unspecified Status: Acute Assessment and Plan: - Nephrology is managing. Appreciate their continued management. - Pt. received dialysis temporarily. - Continue flomax. Pt. with good urine output. - Creatinine has started to improve. - Monitor labs and VS daily. - Avoid Nephrotoxins as much as possible. (13) Hypokalemia: Code(s): E87.6 - Hypokalemia Status: Acute Additional Plan 6)Code:Full, needs goals of care discussion 7)DVT ppx: On Eliquis, 8)Dispo:pending improvement, poor senior care prognosis Subjective Date/time seen: 06/24/21 14:55 Interval history: Patient seen and exam
[2021-06-25] VITALS (12 sets, daily range): BP systolic 115–122; BP diastolic 54–63; PULSE 67–79; RESP 16–18; TEMP 36.1–37.3; O2SAT 95–99
[2021-06-25] MEDS: LEVOTHYROXINE SODIUM 25 MCG TABLET PO (05:40)
[2021-06-25] MEDS: WATER FOR IRRIGATION, STERILE 1,000 ML BOTTLE 1000 ML (05:40)
[2021-06-25] MEDS: LEVOTHYROXINE SODIUM 100 MCG TABLET 200 MCG PO (05:41)
[2021-06-25 06:30] LABS: Basophils Absolute Auto 0.1 K/mm3 (0.0-0.1); Basophils Percent Auto 1.7 % (0.2-1.2); Eosinophils Absolute Auto 0.5 K/mm3 (0-0.3); Hematocrit 39.5 % (42.0-52.0); Hemoglobin 11.3 g/dL (14.0-18.0); Immature Granulocyte Absolute 0.04 K/mm3 (0.00-0.031); Immature Granulocyte Percent A 0.6 % (0-0.5); Lymphocytes Absolute Auto 0.87 K/mm3 (0.9-3.2); Lymphocytes Percent Auto 12.4 % (18.3-44.2); Mean Corpuscular HGB Conc 28.6 g/dl (32-36); Mean Corpuscular Hemoglobin 26.5 pg (26-34); Mean Corpuscular Volume 92.5 fl (80-100); Mean Platelet Volume 10.8 fl (7.4-10.4); Monocytes Absolute Auto 0.7 K/mm3 (0.1-0.6); Monocytes Percent Auto 9.4 % (2.6-8.5); Neutrophils Absolute Auto 4.8 K/mm3 (1.3-6.7); Neutrophils Percent Auto 68.9 % (45.5-73.1); Platelet Count Result 315 k/mm3 (150-375); Red Blood Count 4.27 M/mm3 (4.6-6.20); Red Cell Distribution Width 16.9 % (11.5-14.5)
[2021-06-25 06:43] LABS: Alanine Aminotransferase 9 U/L (4-50); Albumin Level 3.6 g/dL (3.5-5.1); Alkaline Phosphatase 77 U/L (38-126); Anion Gap 7 mmol/L (8-16); Aspartate Amino Transferase 27 U/L (17-59); Bilirubin,Total 0.8 mg/dL (0.2-1.3); Blood Urea Nitrogen 20 mg/dL (9-20); Calcium 8.6 mg/dL (8.4-10.2); Carbon Dioxide 30 mmol/L (22-30); Chloride 100 mmol/L (98-107); Estimated CRCL calculation 70 ml/min; Estimated Glomerular Filt Rate 50; Glucose 95 mg/dL (65-110); Potassium 3.3 mmol/L (3.4-5.0); Sodium 137 mmol/L (137-145)
[2021-06-25] MEDS: POTASSIUM CHLORIDE 20 MEQ TABLET 40 MEQ PO (08:42)
[2021-06-25] MEDS: METOPROLOL TARTRATE 50 MG TAB PO ×2 (08:43→21:08)
[2021-06-25] MEDS: PSYLLIUM POWDER PACKET 1 PACKET PO (08:43)
[2021-06-25] MEDS: acetaZOLAMIDE TAB 250 MG TABLET 500 MG PO ×2 (08:43→16:38)
[2021-06-25] MEDS: LIDOCAINE 5% PATCH 1 PATCH TRANSDERM (08:43)
[2021-06-25] MEDS: GABAPENTIN 300 MG CAPSULE PO ×4 (08:43→21:08)
[2021-06-25] MEDS: BUMETANIDE INJ 2.5 MG/10 ML VIAL 2 MG IV PUSH ×2 (08:44→16:37)
[2021-06-25] MEDS: PANTOPRAZOLE 40 MG TABLET PO (08:44)
[2021-06-25] MEDS: LORATADINE 10 MG TABLET PO (08:44)
[2021-06-25] MEDS: TAMSULOSIN HCL 0.4 MG CAPSULE PO (08:44)
[2021-06-25] MEDS: APIXABAN 5 MG TABLET PO ×2 (08:44→21:08)
[2021-06-25] MEDS: FLUTICASONE PROPIONATE 0.05% NA SPR 16 GM BTL (*BKC) 1 SPRAY NASAL (08:45)
[2021-06-25] MEDS: LACTIC ACID 12% LOTION 225 BTL 1 APPLIC TOPICAL (08:45)
[2021-06-25] MEDS: TOLNAFTATE 1% POWDER 45 GM BTL 1 APPLIC TOPICAL ×2 (08:45→21:08)
[2021-06-25] MEDS: ACETAMINOPHEN 500 MG TABLET PO (08:57)
--- NOTE | 2021-06-25 11:44 | PM.PNCARD ---
Progress Note: A&P Additional Plan 71-year-old man with: Severe volume overload related primarily to obesity hypoventilation syndrome. He as I mentioned yesterday I believe has irreversible pulmonary hypertension and will obviously always have some chronic edema. In my opinion he is close to achieving maximal hospital benefit. Anirudh Wise MD [facility] Subjective Date/time seen: Date of service: 06/25/21 11:44 Interval history: Cardiology follow up for CHF, Afib 06/09/2021: Feels about the same today, breathing slightly more labored. States he feels like someone is sitting on his chest. No other complaints. Discussed plan of care Date of service 06/10/2021: Had thoracentesis with removal of 1 L fluid from the right lung today. Start dialysis with removal of 4000 cc of fluid. Breathing a little better. Telemetry shows probable AFib versus junctional rhythm rate in the 60s, occasional PVCs versus AFib. Underlying rhythm is a RBBB Date of service 06/11/2021: Feeling pretty good, breathing better, had another dialysis treatment today. Dr. Cuenca put a stitch in the dialysis catheter to reduce the bloody oozing. Patient has not been out of bed today, are tears are uncomfortable for him. Tele - a fib rate 60's. Date of service 06/12/2021: Complaining of shortness of breath this morning. States that last night he became acutely short of breath and felt like he was gasping for air. Feels better on his home BiPAP Date of service 06/13/2021: Feeling better today. No longer feeling short of breath. He denies any chest pain or palpitations. In sinus rhythm on telemetry. Date of service 06/15/2021: continues to feel well. Denies shortness of breath, palpitations, chest pain. He is making good urine with diuresis. Plan to remove dialysis catheter. Date of service 06/17/2021: Swelling continues to improve. No shortness of breath. Does have vague feeling of some heaviness of the evening but improves whenever he lays down and put his CPAP on. Date of service 06/18/2021: Continues to improve. Overall doing much better. No chest pain. No shortness of breath. Date of service 06/19/2021: No new complaints. Simply have some back pain from lying in bed. No chest pain, shortness of breath. Date of service 06/20/2021: Complains of some chest heaviness In the afternoon. No new unusual shortness of breath. swelling continues to improve Date of service 06/21/2021: Still has swelling and some shortness of breath but slow and gradual improved Date of service 06/22/2021: He feels about the same today. He says he has a constant feeling that he compares to being hungover. He does not have any chest pain, palpitations, or new/different shortness of breath. He does say that in the late afternoons he becomes suddenly short of breath and feels chest heaviness which subsides when he puts on his BiPAP. Date of service 06/23/2021: Feels about the same. Shortness of breath and swelling persist. He is becoming frustrated that he remains short of breath despite aggressive treatment. Date of service 06/24/2021: Patient does not notice any significant change. As above he still is experiencing shortness of breath with modest activity. Explained to him that he likely has irreversible pulmonary hypertension as a likely reason for this regardless of how much fluid we are able to removed. He is wondering if he will need oxygen at home.. Date of service 06/25/2021: Patient in bed today legs elevated. No significant complaints. Relaxing and watching television. Still having a diuresis with IV Bumex. Exam Narrative: Pleasant alert older male sitting on the edge of the bed in no distress. Const: General: comfortable, no acute distress, alert and awake; No confusion Orientation/consciousness: patient oriented x3 and No confusion HENMT: Head: normal to inspection Ears: hearing grossly normal bilaterally General nose exam: no epistaxi
--- NOTE | 2021-06-25 12:51 | P.PNNP_ITS ---
Progress Note: A&P Assessment and Plan (1) JENA (acute kidney injury): Code(s): N17.9 - Acute kidney failure, unspecified Status: Acute Assessment and Plan: * due to: * renal venous hypertension from chronic volume overload * contrast exposure (renal function was already deteriorating prior to dye use) * creatinine stable * reasonable urine output noted * dialysis has been discontinued * remains on diuretic therapy (2) Stage 3a chronic kidney disease: Code(s): N18.31 - Chronic kidney disease, stage 3a Status: Chronic Assessment and Plan: * baseline creatinine runs ~ 1.4 - 1.7mg/dl in the last few years * due to hypertension and chronic pre renal azotemia due to his poorly functioning heart and possibly new liver disease * creatinine is stable (3) Acute on chronic heart failure: Qualifiers: Heart failure type: unspecified Qualified Code(s): I50.9 - Heart failure, unspecified Code(s): I50.9 - Heart failure, unspecified Status: Acute Assessment and Plan: * as noted by fluid retention, weight gain, and shortness of breath * fluid overload/status is improving * continue the Bumex 2 mg IV bid while hospitalized * switch to oral bumex on discharge or if the creatinine starts to rise - whichever comes 1st (4) Respiratory failure with hypoxia: Qualifiers: Chronicity: acute Qualified Code(s): J96.01 - Acute respiratory failure with hypoxia Code(s): J96.91 - Respiratory failure, unspecified with hypoxia Status: Acute Assessment and Plan: * likely going to be a chronic issue * likely from end-stage diastolic dysfunction, severe obesity hypoventilation syndrome, and pulmonary HTN * CTA of chest noted - no PE but pleural effusions present * using BiPAP PRN and every night * s/p thoracentesis (on 06/06/21) with 925cc removed * original pleural fluid culture with Staph * s/p repeat thoracentesis done and repeat cultures with no growth -- off antibiotics (5) New onset atrial fibrillation: Code(s): I48.91 - Unspecified atrial fibrillation Status: Acute Assessment and Plan: * new finding * partly to blame for decline in status/renal function(?) * rate control strategy * on anticoagulation (6) Hypertension: Code(s): I10 - Essential (primary) hypertension Status: Chronic Assessment and Plan: * reasonable control * follow trend of hemodynamics * on metoprolol only Will continue to follow Subjective Date/time seen: 06/25/21 12:51 No new issues or problems to report at this time; no new events overnight or earlier this morning; appears comfortable and in no distress; no significant change reported. Exam Narrative: General: WD/WN male in NAD Heart: normal S1 and S2; no rub Lungs: decreased at bases Abdomen: soft, nontender, nondistended, positive bowel sounds Extremities: no cyanosis or clubbing; 1+ edema Skin: chronic venous stasis dermatitis unchanged Objective Data Vital Signs Vital Signs: Vital Signs Temp Pulse Resp BP Pulse Ox 06/25/21 08:43 79 06/25/21 05:53 37.3 C 67 16 119/63 99 06/25/21 04:00 67 06/25/21 00:00 68 06/24/21 22:00 36.1 C L 76 16 128/63 100 06/24/21 21:22 69 96 06/24/21 20:11 69 06/24/21 20:05 96
--- NOTE | 2021-06-25 12:51 | PM.PNNEP ---
Progress Note: A&P Assessment and Plan (1) JENA (acute kidney injury): Code(s): N17.9 - Acute kidney failure, unspecified Status: Acute Assessment and Plan: due to: renal venous hypertension from chronic volume overload contrast exposure (renal function was already deteriorating prior to dye use) creatinine stable reasonable urine output noted dialysis has been discontinued remains on diuretic therapy (2) Stage 3a chronic kidney disease: Code(s): N18.31 - Chronic kidney disease, stage 3a Status: Chronic Assessment and Plan: baseline creatinine runs ~ 1.4 - 1.7mg/dl in the last few years due to hypertension and chronic pre renal azotemia due to his poorly functioning heart and possibly new liver disease creatinine is stable (3) Acute on chronic heart failure: Qualifiers: Heart failure type: unspecified Qualified Code(s): I50.9 - Heart failure, unspecified Code(s): I50.9 - Heart failure, unspecified Status: Acute Assessment and Plan: as noted by fluid retention, weight gain, and shortness of breath fluid overload/status is improving continue the Bumex 2 mg IV bid while hospitalized switch to oral bumex on discharge or if the creatinine starts to rise - whichever comes 1st (4) Respiratory failure with hypoxia: Qualifiers: Chronicity: acute Qualified Code(s): J96.01 - Acute respiratory failure with hypoxia Code(s): J96.91 - Respiratory failure, unspecified with hypoxia Status: Acute Assessment and Plan: likely going to be a chronic issue likely from end-stage diastolic dysfunction, severe obesity hypoventilation syndrome, and pulmonary HTN CTA of chest noted - no PE but pleural effusions present using BiPAP PRN and every night s/p thoracentesis (on 06/06/21) with 925cc removed original pleural fluid culture with Staph s/p repeat thoracentesis done and repeat cultures with no growth -- off antibiotics (5) New onset atrial fibrillation: Code(s): I48.91 - Unspecified atrial fibrillation Status: Acute Assessment and Plan: new finding partly to blame for decline in status/renal function(?) rate control strategy on anticoagulation (6) Hypertension: Code(s): I10 - Essential (primary) hypertension Status: Chronic Assessment and Plan: reasonable control follow trend of hemodynamics on metoprolol only Will continue to follow Subjective Date/time seen: 06/25/21 12:51 No new issues or problems to report at this time; no new events overnight or earlier this morning; appears comfortable and in no distress; no significant change reported. Exam Narrative: General: WD/WN male in NAD Heart: normal S1 and S2; no rub Lungs: decreased at bases Abdomen: soft, nontender, nondistended, positive bowel sounds Extremities: no cyanosis or clubbing; 1+ edema Skin: chronic venous stasis dermatitis unchanged Objective Data Vital Signs Vital Signs: Vital Signs Temp Pulse Resp BP Pulse Ox 06/25/21 08:43 79 06/25/21 05:53 37.3 C 67 16 119/63 99 06/25/21 04:00 67 06/25/21 00:00 68 06/24/21 22:00 36.1 C L 76 16 128/63 100 06/24/21 21:22 69 96 06/24/21 20:11 69 06/24/21 20:05 96 06/24/21 20:00 81 06/24/21 16:00 68 06/24/21 14:00 36.2 C L 74 14 131/63 100 Intake/Output Intake/Output: Intake & Output 06/22/21 06/23/21 06/24/21 06/25/21 23:59 23:59 23:59 23:59 Intake Total 1470 1034 1970 986 Output Total 3500 1850 3120 650 Balance -2030 -816 -1150 336 Meds/Results Medications: Active Medications Generic Name Dose Route Start Last Admin Trade Name Freq PRN Reason Stop Dose Admin Acetaminophen 162.5 mg 06/09/21 16:17 Acetaminophen Elixir 325 Mg/10.15 Ml Udc PO Q4H PRN Pain Rated 4-6 Acetaminophen 500 mg 06/14/21 11:10 06/25/21 08:57 Acetaminophen
--- NOTE | 2021-06-25 14:43 | P.PNIM_ITS ---
Progress Note: A&P Assessment and Plan (1) Acute on chronic heart failure: Qualifiers: Heart failure type: unspecified Qualified Code(s): I50.9 - Heart failure, unspecified Code(s): I50.9 - Heart failure, unspecified Status: Acute Assessment and Plan: On IV Bumex associated with pleural effusion Cardiology consulted Associated with hypoxic respiratory failure that is improving slowly. - Continue strict I&O and daily weights. - Status post Right Thoracentesis for pleural effusion. - Pleural fluid positive for MSSA on 06/07/21, continue abx. Pulmonology evaluation. No need for repeat thoracentesis. He will continue to have bilateral pleural effusion due to his ongoing congestive heart failure and renal failure MSSA on pleural fluid positive on 06/07/2021 remains on vancomycin since 06/07/21 till 06/23/2021. Stopped vancomycin 06/23/2021 (2) Morbid obesity with BMI of 50.0-59.9, adult: Code(s): E66.01 - Morbid (severe) obesity due to excess calories; Z68.43 - Body mass index [BMI] 50.0-59.9, adult Status: Acute Assessment and Plan: - Lifestyle changes as much as possible at discharge. (3) Chronic venous insufficiency: Code(s): I87.2 - Venous insufficiency (chronic) (peripheral) Status: Acute Assessment and Plan: - Jayesh wraps every shift. (4) GERD without esophagitis: Code(s): K21.9 - Gastro-esophageal reflux disease without esophagitis Status: Acute Assessment and Plan: - PPI therapy. (5) Dyslipidemia: Code(s): E78.5 - Hyperlipidemia, unspecified Status: Acute Assessment and Plan: - Heart Healthy Diet (6) Essential (primary) hypertension: Code(s): I10 - Essential (primary) hypertension Status: Acute Assessment and Plan: - Monitor and provide home medications. (7) Peripheral polyneuropathy: Code(s): G62.9 - Polyneuropathy, unspecified Status: Acute Assessment and Plan: - Continue gabapentin (8) AMELIA (obstructive sleep apnea): Code(s): G47.33 - Obstructive sleep apnea (adult) (pediatric) Status: Acute Assessment and Plan: - Home BiPap (9) Acute respiratory failure with hypoxia: Code(s): J96.01 - Acute respiratory failure with hypoxia Status: Acute Assessment and Plan: - Likely secondary to acute on chronic diastolic heart failyure. - As evidenced by bilateral pleural effusion and edama of BLE. - Also has liver cirrhosis and ascites. - Keep K>4 and Mag>2. (10) New onset a-fib: Code(s): I48.91 - Unspecified atrial fibrillation Status: Acute Assessment and Plan: - Eliquis ordered, but currently holding due to bleeding around dialysis site. This has been resumed now - Continue Metoprolol. - Good rate control achieved. (11) UTI (urinary tract infection): Qualifiers: Urinary tract infection type: site unspecified Hematuria presence: without hematuria Qualified Code(s): N39.0 - Urinary tract infection, site not specified Code(s): N39.0 - Urinary tract infection, site not specified Status: Acute Assessment and Plan: Secondary to Enterococcus continue vancomycin patient allergic to penicillin (12) JENA (acute kidney injury): Code(s): N17.9 - Acute kidney failure, unspecified Status: Acute Assessment and Plan: - Nephrology is managing. Appreciate their continued management. - Pt. received dialysis temporarily. - Continue flomax. Pt. with good urine output. - Creatinin
[2021-06-26] VITALS (8 sets, daily range): BP systolic 118–124; BP diastolic 66–68; PULSE 67–70; RESP 16–17; TEMP 35.9–36.1; O2SAT 100
[2021-06-26] MEDS: LEVOTHYROXINE SODIUM 100 MCG TABLET 200 MCG PO (05:45)
[2021-06-26 06:26] LABS: Basophils Absolute Auto 0.1 K/mm3 (0.0-0.1); Basophils Percent Auto 1.5 % (0.2-1.2); Eosinophils Absolute Auto 0.5 K/mm3 (0-0.3); Eosinophils Percent Auto 7.2 % (0-4.4); Hematocrit 39.2 % (42.0-52.0); Hemoglobin 11.2 g/dL (14.0-18.0); Immature Granulocyte Absolute 0.04 K/mm3 (0.00-0.031); Immature Granulocyte Percent A 0.6 % (0-0.5); Lymphocytes Absolute Auto 0.83 K/mm3 (0.9-3.2); Lymphocytes Percent Auto 11.5 % (18.3-44.2); Mean Corpuscular HGB Conc 28.6 g/dl (32-36); Mean Corpuscular Hemoglobin 26.7 pg (26-34); Mean Corpuscular Volume 93.6 fl (80-100); Mean Platelet Volume 11.1 fl (7.4-10.4); Monocytes Absolute Auto 0.6 K/mm3 (0.1-0.6); Monocytes Percent Auto 8.7 % (2.6-8.5); Neutrophils Absolute Auto 5.1 K/mm3 (1.3-6.7); Neutrophils Percent Auto 70.5 % (45.5-73.1); Platelet Count Result 302 k/mm3 (150-375); Red Blood Count 4.19 M/mm3 (4.6-6.20); White Blood Count 7.2 K/mm3 (4.5-10.0)
[2021-06-26 06:36] LABS: Alanine Aminotransferase 10 U/L (4-50); Albumin Level 3.9 g/dL (3.5-5.1); Alkaline Phosphatase 86 U/L (38-126); Anion Gap 8 mmol/L (8-16); Aspartate Amino Transferase 34 U/L (17-59); Bilirubin,Total 0.8 mg/dL (0.2-1.3); Blood Urea Nitrogen 20 mg/dL (9-20); Calcium 8.7 mg/dL (8.4-10.2); Carbon Dioxide 31 mmol/L (22-30); Chloride 99 mmol/L (98-107); Estimated CRCL calculation 41 ml/min; Estimated Glomerular Filt Rate 46; Glucose 95 mg/dL (65-110); Magnesium 2.1 mg/dL (1.6-2.3); Potassium 3.5 mmol/L (3.4-5.0); Sodium 138 mmol/L (137-145)
[2021-06-26 07:12] LABS: Platelet Estimate Adequate (Adequate)
[2021-06-26 07:13] LABS: Hypochromasia 1+ (NORMAL)
[2021-06-26] MEDS: GABAPENTIN 300 MG CAPSULE PO ×2 (09:08→12:00)
[2021-06-26] MEDS: acetaZOLAMIDE TAB 250 MG TABLET 500 MG PO (09:08)
[2021-06-26] MEDS: METOPROLOL TARTRATE 50 MG TAB PO (09:08)
[2021-06-26] MEDS: APIXABAN 5 MG TABLET PO (09:08)
[2021-06-26] MEDS: PANTOPRAZOLE 40 MG TABLET PO (09:09)
[2021-06-26] MEDS: TAMSULOSIN HCL 0.4 MG CAPSULE PO (09:09)
[2021-06-26] MEDS: polyethylene glycoL 3350 17 GM POWD.PACK PO (09:09)
[2021-06-26] MEDS: LORATADINE 10 MG TABLET PO (09:09)
[2021-06-26] MEDS: BUMETANIDE INJ 2.5 MG/10 ML VIAL 2 MG IV PUSH (09:10)
[2021-06-26] MEDS: LACTIC ACID 12% LOTION 225 BTL 1 APPLIC TOPICAL (09:10)
[2021-06-26] MEDS: TOLNAFTATE 1% POWDER 45 GM BTL 1 APPLIC TOPICAL (09:12)
--- NOTE | 2021-06-26 12:49 | P.PNNP_ITS ---
Progress Note: A&P Assessment and Plan (1) JENA (acute kidney injury): Code(s): N17.9 - Acute kidney failure, unspecified Status: Acute Assessment and Plan: * due to: * renal venous hypertension from chronic volume overload * contrast exposure (renal function was already deteriorating prior to dye use) * creatinine stable * reasonable urine output noted * dialysis has been discontinued * remains on diuretic therapy (2) Stage 3a chronic kidney disease: Code(s): N18.31 - Chronic kidney disease, stage 3a Status: Chronic Assessment and Plan: * baseline creatinine runs ~ 1.4 - 1.7mg/dl in the last few years * due to hypertension and chronic pre renal azotemia due to his poorly functioning heart and possibly new liver disease * creatinine is stable (3) Acute on chronic heart failure: Qualifiers: Heart failure type: unspecified Qualified Code(s): I50.9 - Heart failure, unspecified Code(s): I50.9 - Heart failure, unspecified Status: Acute Assessment and Plan: * as noted by fluid retention, weight gain, and shortness of breath * fluid overload/status is improving * continue the Bumex 2 mg IV bid while hospitalized * switch to oral bumex today (4) Respiratory failure with hypoxia: Qualifiers: Chronicity: acute Qualified Code(s): J96.01 - Acute respiratory failure with hypoxia Code(s): J96.91 - Respiratory failure, unspecified with hypoxia Status: Acute Assessment and Plan: * likely going to be a chronic issue * likely from end-stage diastolic dysfunction, severe obesity hypoventilation syndrome, and pulmonary HTN * CTA of chest noted - no PE but pleural effusions present * using BiPAP PRN and every night * s/p thoracentesis (on 06/06/21) with 925cc removed * original pleural fluid culture with Staph * s/p repeat thoracentesis done and repeat cultures with no growth -- off antibiotics (5) New onset atrial fibrillation: Code(s): I48.91 - Unspecified atrial fibrillation Status: Acute Assessment and Plan: * new finding * partly to blame for decline in status/renal function(?) * rate control strategy * on anticoagulation (6) Hypertension: Code(s): I10 - Essential (primary) hypertension Status: Chronic Assessment and Plan: * reasonable control * follow trend of hemodynamics * on metoprolol only Not opposed to discharge from renal perspective when otherwise medically stable. Will continue to follow Subjective Date/time seen: 06/26/21 12:49 Appears to be doing reasonably well at the time of my visit; sitting up in chair eating lunch; renal function remains stable with reasonable urine output/diuresis; no apparent distress voiced; no issues/events overnight or earlier this morning. Exam Narrative: General: WD/WN male in NAD Heart: normal S1 and S2; no rub Lungs: decreased at bases Abdomen: soft, nontender, nondistended, positive bowel sounds Extremities: no cyanosis or clubbing; 1+ edema (chronic) Skin: chronic venous stasis dermatitis Objective Data Vital Signs Vital Signs: Vital Signs Temp Pulse Resp BP Pulse Ox 06/26/21 09:08 70 06/26/21 09:05 100 06/26/21 08:00 69 06/26/21 06:00 35.9 C L 67 16 124/68 100 06/26/21 04:00 67 06/26/21 00:00 67
--- NOTE | 2021-06-26 12:49 | PM.PNNEP ---
Progress Note: A&P Assessment and Plan (1) JENA (acute kidney injury): Code(s): N17.9 - Acute kidney failure, unspecified Status: Acute Assessment and Plan: due to: renal venous hypertension from chronic volume overload contrast exposure (renal function was already deteriorating prior to dye use) creatinine stable reasonable urine output noted dialysis has been discontinued remains on diuretic therapy (2) Stage 3a chronic kidney disease: Code(s): N18.31 - Chronic kidney disease, stage 3a Status: Chronic Assessment and Plan: baseline creatinine runs ~ 1.4 - 1.7mg/dl in the last few years due to hypertension and chronic pre renal azotemia due to his poorly functioning heart and possibly new liver disease creatinine is stable (3) Acute on chronic heart failure: Qualifiers: Heart failure type: unspecified Qualified Code(s): I50.9 - Heart failure, unspecified Code(s): I50.9 - Heart failure, unspecified Status: Acute Assessment and Plan: as noted by fluid retention, weight gain, and shortness of breath fluid overload/status is improving continue the Bumex 2 mg IV bid while hospitalized switch to oral bumex today (4) Respiratory failure with hypoxia: Qualifiers: Chronicity: acute Qualified Code(s): J96.01 - Acute respiratory failure with hypoxia Code(s): J96.91 - Respiratory failure, unspecified with hypoxia Status: Acute Assessment and Plan: likely going to be a chronic issue likely from end-stage diastolic dysfunction, severe obesity hypoventilation syndrome, and pulmonary HTN CTA of chest noted - no PE but pleural effusions present using BiPAP PRN and every night s/p thoracentesis (on 06/06/21) with 925cc removed original pleural fluid culture with Staph s/p repeat thoracentesis done and repeat cultures with no growth -- off antibiotics (5) New onset atrial fibrillation: Code(s): I48.91 - Unspecified atrial fibrillation Status: Acute Assessment and Plan: new finding partly to blame for decline in status/renal function(?) rate control strategy on anticoagulation (6) Hypertension: Code(s): I10 - Essential (primary) hypertension Status: Chronic Assessment and Plan: reasonable control follow trend of hemodynamics on metoprolol only Not opposed to discharge from renal perspective when otherwise medically stable. Will continue to follow Subjective Date/time seen: 06/26/21 12:49 Appears to be doing reasonably well at the time of my visit; sitting up in chair eating lunch; renal function remains stable with reasonable urine output/diuresis; no apparent distress voiced; no issues/events overnight or earlier this morning. Exam Narrative: General: WD/WN male in NAD Heart: normal S1 and S2; no rub Lungs: decreased at bases Abdomen: soft, nontender, nondistended, positive bowel sounds Extremities: no cyanosis or clubbing; 1+ edema (chronic) Skin: chronic venous stasis dermatitis Objective Data Vital Signs Vital Signs: Vital Signs Temp Pulse Resp BP Pulse Ox 06/26/21 09:08 70 06/26/21 09:05 100 06/26/21 08:00 69 06/26/21 06:00 35.9 C L 67 16 124/68 100 06/26/21 04:00 67 06/26/21 00:00 67 06/25/21 21:43 36.7 C 71 18 122/62 98 06/25/21 21:08 71 06/25/21 20:00 68 06/25/21 16:00 70 06/25/21 14:00 36.1 C L 71 18 115/54 L 95 Intake/Output Intake/Output: Intake & Output 06/23/21 06/24/21 06/25/21 06/26/21 23:59 23:59 23:59 23:59 Intake Total 1034 1970 1444 490 Output Total 1850 3120 2100 600 Balance -816 -1150 -656 -110 Meds/Results Medications: Active Medications Generic Name Dose Route Start Last Admin Trade Name Freq PRN Reason Stop Dose Admin Acetaminophen 162.5 mg 06/09/21 16:17 Acetaminophen Elixir 325 Mg/10.15 Ml Udc PO Q4H PRN
--- NOTE | 2021-06-26 12:54 | PM.DS ---
DS: Admitting Diagnosis Discharge Date 06/26/2021 Admitting Diagnosis Shortness of breath DS: Discharge Diagnosis Discharge Diagnosis (1) Acute on chronic heart failure: Qualifiers: Heart failure type: unspecified Qualified Code(s): I50.9 - Heart failure, unspecified Code(s): I50.9 - Heart failure, unspecified Status: Acute Assessment and Plan: On IV Bumex associated with pleural effusion Cardiology consulted Associated with hypoxic respiratory failure that is improving slowly. On oxygen supplementation continue to improve but is still was requiring by the time of discharge - Continue strict I&O and daily weights. - Status post Right Thoracentesis for pleural effusion. - Pleural fluid positive for MSSA on 06/07/21, started on vancomycin. Also had Enterococcus in his urine. Repeat chest x-ray with persistent right pleural effusion which was tapped again. Culture this time did not grow any bacteria. Pulmonary was consulted for repeated pleural effusion is suggested no need for repeat thoracentesis. Due to his underlying congestive heart failure he will continue to get bilateral pleural effusions. He was treated with vancomycin from 06/07/2021 till 06/23/2021 with repeat cultures being negative. (2) Morbid obesity with BMI of 50.0-59.9, adult: Code(s): E66.01 - Morbid (severe) obesity due to excess calories; Z68.43 - Body mass index [BMI] 50.0-59.9, adult Status: Acute Assessment and Plan: - Lifestyle changes as much as possible at discharge. (3) Chronic venous insufficiency: Code(s): I87.2 - Venous insufficiency (chronic) (peripheral) Status: Acute Assessment and Plan: - Jayesh wraps every shift. (4) GERD without esophagitis: Code(s): K21.9 - Gastro-esophageal reflux disease without esophagitis Status: Acute Assessment and Plan: - PPI therapy. (5) Dyslipidemia: Code(s): E78.5 - Hyperlipidemia, unspecified Status: Acute Assessment and Plan: - Heart Healthy Diet (6) Essential (primary) hypertension: Code(s): I10 - Essential (primary) hypertension Status: Acute Assessment and Plan: - Monitor and provide home medications. (7) Peripheral polyneuropathy: Code(s): G62.9 - Polyneuropathy, unspecified Status: Acute Assessment and Plan: - Continue gabapentin (8) AMELIA (obstructive sleep apnea): Code(s): G47.33 - Obstructive sleep apnea (adult) (pediatric) Status: Acute Assessment and Plan: - Home BiPap as ordered (9) Acute respiratory failure with hypoxia: Code(s): J96.01 - Acute respiratory failure with hypoxia Status: Acute Assessment and Plan: - Likely secondary to acute on chronic diastolic heart failyure. - As evidenced by bilateral pleural effusion and edama of BLE. - Also has liver cirrhosis and ascites. - Keep K>4 and Mag>2. Still needing oxygen supplementation which will be continued at the rehab facility continue to titrate oxygen to keep SpO2 more than 90% (10) New onset a-fib: Code(s): I48.91 - Unspecified atrial fibrillation Status: Acute Assessment and Plan: - Eliquis ordered, but currently holding due to bleeding around dialysis site. This has been resumed now - Continue Metoprolol. - Good rate control achieved. Continue Eliquis at discharge 5 mg b.i.d. for his atrial fibrillation (11) UTI (urinary tract infection): Qualifiers: Urinary tract infection type: site unspecified Hematuria presence: without hematuria Qualified Code(s): N39.0 - Urinary tract infection, site not specified Code(s): N39.0 - Urinary tract infection, site not specified Status: Acute Assessment and Plan: Secondary to Enterococcus continue vancomycin patient allergic to penicillin Finished his course of vancomycin for Enterococcus UTI (12) JENA (acute kidney injury): Code(s): N17.9 - Acute kidney
[2021-06-26 14:30] LABS: EDCOVIDSCREEN Negative (Negative)
--- NOTE | 2021-06-26 15:21 | PM.PNCARD ---
Progress Note: A&P Assessment and Plan (1) Respiratory failure with hypoxia: Qualifiers: Chronicity: acute Qualified Code(s): J96.01 - Acute respiratory failure with hypoxia Code(s): J96.91 - Respiratory failure, unspecified with hypoxia Status: Acute Assessment and Plan: Improved with dialysis and thoracentesis and now diuresis (2) Acute on chronic heart failure with preserved ejection fraction: Code(s): I50.33 - Acute on chronic diastolic (congestive) heart failure Status: Acute Assessment and Plan: Acute right and left heart failure with preserved systolic function. Echo reveals severe RV enlargement and hypokinesis with moderate pulmonary hypertension. CTA was negative for pulmonary embolus. Continue Bumex 2mg po b.i.d. and Acetazolamide 500 mg b.i.d.. HTN controlled CHF improved Need SNF. Discussed very difficult balance with renal failure, pulmonary HTN, AMELIA/hypoxia, and RV failure. Complicated pathophysiology. Stable for discharge from cardiac perspective with disposition per primary service. (3) New onset atrial fibrillation: Code(s): I48.91 - Unspecified atrial fibrillation Status: Acute Assessment and Plan: New onset atrial fibrillation, appears paroxysmal on telemetry along with possible intermittent junctional escape rhythm. Currently in sinus rhythm. Heart rate reasonably controlled with metoprolol 50 mg BID. Be cautious with AV orquidea blocking agents given underlying bundle-branch block, intermittent junctional rhythm, and fairly controlled heart rate in atrial fibrillation suggestive of significant underlying conduction system disease. CHADS2 Vasc score 4. A/c with Eliquis 5 mg b.i.d. Continue metoprolol 50 mg BID HR fair control. May stop Telemetry (4) Acute kidney injury superimposed on chronic kidney disease: Code(s): N17.9 - Acute kidney failure, unspecified; N18.9 - Chronic kidney disease, unspecified Status: Acute Assessment and Plan: Transiently required hemodialysis this admission. Now making good urine on Bumex and Acetazolamide. Dialysis catheter has been removed. Renal function holding. Appreciate Renal involvement. (5) Pulmonary hypertension: Code(s): I27.20 - Pulmonary hypertension, unspecified Status: Acute Assessment and Plan: Consistent with cor pulmonale. Moderate severity RVSP 51 mm Hg similar to prior echo June 2020. RV enlargement hypokinesis also similar. Lower extremity Dopplers negative for DVT. CT negative for PE (6) Essential (primary) hypertension: Code(s): I10 - Essential (primary) hypertension Status: Acute Assessment and Plan: Controlled. (7) AMELIA (obstructive sleep apnea): Code(s): G47.33 - Obstructive sleep apnea (adult) (pediatric) Status: Acute Assessment and Plan: Compliance with BiPAP. (8) Lymphedema of both lower extremities: Code(s): I89.0 - Lymphedema, not elsewhere classified Status: Acute Assessment and Plan: Chronic. DVT prophylaxis. Wound care. Jayesh wraps. No DVT on lower extremity venous Dopplers. (9) Hypokalemia: Code(s): E87.6 - Hypokalemia Status: Acute Assessment and Plan: Basic metabolic panel in the morning Subjective Date/time seen: Date of service: 06/26/21 15:21 Interval history: Cardiology follow up for CHF, Afib 06/09/2021: Feels about the same today, breathing slightly more labored. States he feels like someone is sitting on his chest. No other complaints. Discussed plan of care 06/10/2021: Had thoracentesis with removal of 1 L fluid from the right lung today. Start dialysis with removal of 4000 cc of fluid. Breathing a little better. Telemetry shows probable AFib versus junctional rhythm rate in the 60s, occasional PVCs versus AFib. Underlying rhythm is a RBBB 06/11/2021: Feeling pretty good, breathing better, had another dialys
== END 2021-06-26 16:21 | DRG 291 ==
LOC: ANHED 17:45 → ANH3MEDSUR 17:55
PROVIDERS: Family Medicine; Internal Medicine; Internal Medicine Cardiovascular Disease; Internal Medicine Nephrology; Nurse Practitioner Adult Health; Surgery; Admitting Provider Internal Medicine; Emergency Provider Emergency Medicine; PCP Family Medicine; Visit Provider Internal Medicine
PROC: 02HV33Z Insertion of Infusion Device into Superior Vena Cava, Percutaneous Approach (ICD-10-PCS; principal; 2021-06-09 14:20)
DX: I13.0 Hypertensive heart and chronic kidney disease with heart failure and stage 1 through stage 4 chronic kidney disease, or unspecified chronic kidney disease (principal); I50.33 Acute on chronic diastolic (congestive) heart failure; J96.01 Acute respiratory failure with hypoxia; Z68.43 Body mass index [BMI] 50.0-59.9, adult; E66.2 Morbid (severe) obesity with alveolar hypoventilation; N17.9 Acute kidney failure, unspecified; N39.0 Urinary tract infection, site not specified; R18.8 Other ascites; J90 Pleural effusion, not elsewhere classified; I87.2 Venous insufficiency (chronic) (peripheral); K21.9 Gastro-esophageal reflux disease without esophagitis; E78.5 Hyperlipidemia, unspecified; G62.9 Polyneuropathy, unspecified; Z20.822 Contact with and (suspected) exposure to COVID-19; E03.9 Hypothyroidism, unspecified; N18.32 Chronic kidney disease, stage 3b; I89.0 Lymphedema, not elsewhere classified; I27.20 Pulmonary hypertension, unspecified; L71.9 Rosacea, unspecified; I50.814 Right heart failure due to left heart failure; Z79.899 Other long term (current) drug therapy; Z79.82 Long term (current) use of aspirin; Z87.891 Personal history of nicotine dependence; D72.829 Elevated white blood cell count, unspecified; I48.0 Paroxysmal atrial fibrillation; B95.2 Enterococcus as the cause of diseases classified elsewhere; E87.6 Hypokalemia; K74.60 Unspecified cirrhosis of liver
CPT/HCPCS: 32555; 36415; 36600; 71045; 71046; 71250; 71275; 73600; 74176; 76700; 76775; 76857; 77001; 80048; 80053; 80061; 80069; 80202; 81001; 81050; 82150; 82550; 82570; 82805; 82945; 83605; 83615; 83735; 83880; 83986; 84100; 84145; 84156; 84157; 84300; 84311; 84443; 84478; 84484; 85025; 85027; 85610; 85730; 85999; 86140; 86705; 86706; 87040; 87070; 87075; 87077; 87086; 87088; 87147; 87186; 87205; 87340; 87426; 87804; 89051; 93005; 93970; 94660; 94762; 96365; 96368; 96375; 96376; 97110; 97116; 97161; 97164; 97165; 97168; 97530; 97535; 99285; A9270; C1752; C8929; C9803; G0257; G0378; J0456; J0690; J1644; J1940; J2250; J2405; J2704; J3010; J3370; J3475; J3480; J7030; J7040; Q9957; Q9967; U0003; U0005

== ENCOUNTER 2021-07-28 08:28 | Emergency (ER) | payer MEDICARE, OTHER, SELFPAY ==
[2021-07-28] VITALS (12 sets, daily range): BP systolic 110–134; BP diastolic 59–90; PULSE 81–94; RESP 14–19; TEMP 37.3; O2SAT 94–99
--- NOTE | ~2021-07-28 | XR_ITS ---
XR chest 2V DATE: 07/28/2021 08:56 INDICATION: Shortness of breath. Weakness. Fall today. History of renal disease. TECHNIQUE: AP and lateral views COMPARISON: 06/12/2021 AP and lateral chest 06/20/2021 CT chest abdomen pelvis FINDINGS: There is cardiomegaly. There is mild pulmonary vascular congestion, improved since 2. There is improvement of bilateral pulmonary infiltrates since 06/12/2021, with mild residual infiltrat e and/or atelectasis in the lower lung zones. There is moderate right pleural effusion, increased sin ce 06/12/2021. Aortic arch calcification, mild aortic unfolding. Suture anchor of left humeral head. IMPRESSION: Cardiomegaly, moderate right pleural effusion; diminished bilateral infiltrates and pulmo nary vascular congestion since 06/12/2021 Reviewed, dictated and finalized at location A. IMPRESSION: Cardiomegaly, moderate right pleural effusion; diminished bilateral infiltrates and pulmonary vascular congestion since 06/12/2021
--- NOTE | ~2021-07-28 | CT_ITS ---
EXAMINATION: CT facial & cervical spine wo DATE: 07/28/2021 09:42 INDICATION: Fall. Facial and neck injury. TECHNIQUE: Computed tomography (CT) of the facial bones and maxillofacial region was performed withou t intravenous contrast. Automated exposure control and iterative reconstruction technique were employ ed. Exam dose: 562.88 mGy-cm total exam DLP. COMPARISON: None. FINDINGS: No nasal bone fracture. The anterior nasal spine is intact. The frontozygomatic sutures, or bital rims and blair, zygomatic arches and remainder of the facial bones are intact. Normal alignment at the temporomandibular joints. No mandible fracture is evident. The paranasal sinuses are normally developed and aerated. Mastoid air cells likewise are normally dev eloped and aerated. There is straightening and dextroscoliosis of the cervical spine. There is moderate degenerative disc disease at C3-4 and C4-5 and severe degenerative disc disease at C5-6, C6-7, C7-T1. There are prominent anterior bridging osteophytes at C4-7 There is degenerative change at the apophyseal joints and the mid and lower cervical uncovertebral rd ints. IMPRESSION: No facial fracture Straightening and levoscoliosis of cervical spine Extensive cervical spondylosis; no fracture, dislocation or locked facet of the cervical spine Reviewed, dictated and finalized at Location A. Reviewed, dictated and finalized at location A.
--- NOTE | ~2021-07-28 | XR_ITS ---
EXAMINATION: XR knee RT 2V DATE: 07/28/2021 08:57 INDICATION: Right knee pain. Fall. TECHNIQUE: 2 views of right knee were obtained. COMPARISON: None. FINDINGS: There is a comminuted fracture of distal femoral metaphysis. The main distal fracture fragm ent demonstrates 3.0 cm posterior displacement and impaction. There is mild knee joint osteoarthritis , but the medial and lateral compartments are not well profiled. No visible knee joint effusion. IMPRESSION: 1. Comminuted fracture of distal femoral metaphysis. 2. Mild right knee osteoarthritis. Reviewed, dictated and finalized at location A.
--- NOTE | ~2021-07-28 | CT_ITS ---
EXAMINATION: CT brain wo con DATE: 07/28/2021 09:42 INDICATION: Head injury. TECHNIQUE: Computed tomography (CT) of the head was performed without intravenous contrast. The mA wa s adjusted according to patient size. Iterative reconstruction technique was employed. The dose-lengt h product was 605.33 mGy-cm. COMPARISON: Head CT 07/14/2020 FINDINGS: There is no intracranial hemorrhage, acute infarction, or abnormal intracranial mass lesion . The ventricles are normal in size. There are likely changes of ocular lens replacement surgeries. T here are changes of right-sided scleral banding procedure. There is mild mucosal thickening in the pa ranasal sinuses. There is a trace right mastoid effusion. IMPRESSION: 1. Normal brain. Reviewed, dictated and finalized at location A. IMPRESSION: 1. Normal brain.
--- NOTE | 2021-07-28 08:34 | ECG_ITS ---
Measurements Intervals [place] Rate: 89 P: -53 FL: 130 QRS: -87 QRSD: 174 T: 54 QT: 411 QTc: 500 Interpretive Statements SINUS RHYTHM WITH OCCASIONAL VENTRICULAR PREMATURE COMPLEXES RIGHT BUNDLE BRANCH BLOCK [120+ ms QRS DURATION, UPRIGHT V1, 40+ ms S IN I/aVL/V4/V5/V6] LEFT ANTERIOR FASCICULAR BLOCK [QRS AXIS <= -45, QR IN I, RS IN II] COMPARED TO ECG 06/21/2021 05:14:19 SINUS RHYTHM NOW PRESENT LEFT ANTERIOR FASCICULAR BLOCK NOW PRESENT Electronically Signed On 07-28-2021 12:49:25 CDT by Anirudh Wise M.D.
[2021-07-28 09:10] LABS: Basophils Absolute Auto 0.1 K/mm3 (0.0-0.1); Eosinophils Absolute Auto 0.2 K/mm3 (0-0.3); Eosinophils Percent Auto 3.8 % (0-4.4); Hematocrit 36.3 % (42.0-52.0); Hemoglobin 10.9 g/dL (14.0-18.0); Immature Granulocyte Absolute 0.01 K/mm3 (0.00-0.031); Immature Granulocyte Percent A 0.2 % (0-0.5); Lymphocytes Percent Auto 8.6 % (18.3-44.2); Mean Corpuscular Hemoglobin 26.6 pg (26-34); Mean Corpuscular Volume 88.5 fl (80-100); Mean Platelet Volume 10.5 fl (7.4-10.4); Monocytes Absolute Auto 0.8 K/mm3 (0.1-0.6); Monocytes Percent Auto 13.3 % (2.6-8.5); Neutrophils Absolute Auto 4.3 K/mm3 (1.3-6.7); Neutrophils Percent Auto 73.1 % (45.5-73.1); Platelet Count Result 285 k/mm3 (150-375); Red Cell Distribution Width 15.6 % (11.5-14.5); White Blood Count 5.8 K/mm3 (4.5-10.0)
--- NOTE | 2021-07-28 09:22 | ED.WEAKNESS ---
HPI - Weakness General Chief complaint: Weakness Stated complaint: right knee injury after falling from weakness Time Seen by Provider: 07/28/21 09:09 History of Present Illness HPI Narrative: 71-year-old male presents to the emergency room for evaluation of right knee pain and facial trauma following neuro fall. Patient states he was hospitalized recently for 3 weeks for renal failure, then was sent to [facility] for another 4 weeks. Patient states he was discharged from rehab facility on Saturday and was feeling better. On Saturday he states he was feeling generalized weakness. Patient normally ambulatory with his walker. Patient states this morning he fell striking his right knee and face on the ground. Denies loss of consciousness. Patient was not ambulatory following the injury. Patient states he is on Eliquis. Related Data Home Medications Medication Instructions Recorded Confirmed aspirin 81 mg tablet,delayed 81 mg PO DAILY 04/07/19 06/02/21 release omeprazole magnesium 20 mg 20 mg PO DAILY 04/07/19 06/02/21 tablet,delayed release fluticasone propionate 50 1 spray INTRANASAL DAILY 07/12/20 06/02/21 mcg/actuation nasal spray,suspension loratadine 10 mg tablet 10 mg PO DAILY 07/12/20 06/02/21 acetaminophen 325 mg capsule 325 mg PO Q6H PRN 04/20/21 06/02/21 potassium chloride 20 mEq 20 meq PO DAILY 04/20/21 06/02/21 tablet,extended release(part/cryst) levothyroxine 200 mcg tablet 225 mcg PO QAM tablet 04/21/21 06/09/21 polyethylene glycol 3350 [Miralax] 17 g PO PRN 06/02/21 06/02/21 psyllium 1 packet PO PRN PRN 06/02/21 06/06/21 Allergies Allergy/AdvReac Type Severity Reaction Status Date / Time Sulfa (Sulfonamide Allergy Mild Rash Verified 07/28/21 09:28 Antibiotics) Penicillins Allergy Unknown SWELLING Verified 07/28/21 09:28 codeine AdvReac Mild N/V Verified 07/28/21 09:28 hydrocodone AdvReac Mild N/V Verified 07/28/21 09:28 tramadol AdvReac Mild Nausea Verified 07/28/21 09:28 Review of Systems Review of Systems: CONSTITUTIONAL: Denies fever, chills, or sweats. EYES: Denies visual changes, redness, or discharge. ENT: Reports epistaxis CARDIOVASCULAR: Denies chest pain, palpitations, or edema. RESPIRATORY: Denies cough or dyspnea. GASTROINTESTINAL: Denies abdominal pain, nausea, vomiting, or diarrhea. GENITOURINARY: Denies dysuria or hematuria. SKIN: Denies rash or itching. MUSCULOSKELETAL: Reports right knee pain NEUROLOGIC: Denies headache, numbness, dizziness, or weakness. PSYCHIATRIC: Denies anxiety or depression. [facility] Past Medical History Medical History Chronic congestive heart failure Review of his EMR last recorded Echocardiogram on 10/2017 showed EF 68% with grade II diastolic dysfunction. Chronic low back pain Chronic venous insufficiency CKD (chronic kidney disease) stage 3, GFR 30-59 ml/min Dyslipidemia Environmental allergies Essential (primary) hypertension GERD without esophagitis Hypothyroidism Lymphedema of both lower extremities Ocular rosacea AMELIA (obstructive sleep apnea) Peripheral polyneuropathy Rosacea Surgical History Surgical History H/O eye surgery (~2005) [id number] [facility] History of cholecystectomy (~2008) History of discectomy 2013 History of foot surgery Left Foot History of rotator cuff surgery bilateral History of thoracic surgery Pericardial effusion s/p pericardial window thought secondary to minoxidil, in 2010 at [facility] Family History Family History Father Cardiovascular disease Grandparent Cancer Mother COPD (chronic obstructive pulmonary disease) Father Family history of cardiovascular disease Grandparent Family history of malignant neoplasm Social History Social History Smoking packs per day: 1.
[2021-07-28 09:24] LABS: Alanine Aminotransferase 8 U/L (4-50); Alkaline Phosphatase 65 U/L (38-126); Anion Gap 10 mmol/L (8-16); Aspartate Amino Transferase 23 U/L (17-59); Bilirubin,Total 0.8 mg/dL (0.2-1.3); Blood Urea Nitrogen 17 mg/dL (9-20); Calcium 8.5 mg/dL (8.4-10.2); Carbon Dioxide 24 mmol/L (22-30); Chloride 105 mmol/L (98-107); Estimated CRCL calculation 61 ml/min; Estimated Glomerular Filt Rate 46; Glucose 105 mg/dL (65-110); Potassium 3.4 mmol/L (3.4-5.0); Sodium 139 mmol/L (137-145)
[2021-07-28] MEDS: HYDROmorphone HCL INJ (*CRX) 1 MG/ML SYR IV PUSH ×2 (09:24→11:35)
[2021-07-28] MEDS: ONDANSETRON INJ 4 MG/2 ML VIAL IV PUSH (09:24)
--- NOTE | 2021-07-28 10:56 | PC.NURSE ---
[facility] accepted transfer to [facility] 1130 trip # [phone]
--- NOTE | 2021-07-28 11:21 | PC.NURSE ---
patient c/o nausea and knee pain. cool wash cloth given. Dr. davison. awaiting new orders
[2021-07-28] MEDS: SODIUM CHLORIDE 0.9% IV 50 ML 125 ML (11:33)
[2021-07-28] MEDS: PROMETHAZINE HCL 25 MG/ML AMPUL 12.5 MG IV PUSH (11:35)
== END 2021-07-28 12:18 | disposition short-term general hospital (02) ==
PROVIDERS: Emergency Medicine; Emergency Provider Nurse Practitioner Family; PCP Family Medicine
DX: S79.191A Other physeal fracture of lower end of right femur, initial encounter for closed fracture (principal); R04.0 Epistaxis; I13.0 Hypertensive heart and chronic kidney disease with heart failure and stage 1 through stage 4 chronic kidney disease, or unspecified chronic kidney disease; N18.30 Chronic kidney disease, stage 3 unspecified; I50.9 Heart failure, unspecified; E78.5 Hyperlipidemia, unspecified; K21.9 Gastro-esophageal reflux disease without esophagitis; E03.9 Hypothyroidism, unspecified; G47.33 Obstructive sleep apnea (adult) (pediatric); G62.9 Polyneuropathy, unspecified; Z87.891 Personal history of nicotine dependence; D64.9 Anemia, unspecified; Z79.82 Long term (current) use of aspirin; Z79.01 Long term (current) use of anticoagulants; M17.11 Unilateral primary osteoarthritis, right knee; I51.7 Cardiomegaly; M47.812 Spondylosis without myelopathy or radiculopathy, cervical region; W19.XXXA Unspecified fall, initial encounter
CPT/HCPCS: 36415; 70450; 70486; 71046; 72125; 73560; 80053; 85025; 93005; 96374; 96375; 96376; 99285; J1170; J2405; J2550

== ENCOUNTER 2022-01-19 15:54 | Outpatient (CLI) | payer MEDICARE, OTHER, SELFPAY ==
[2022-01-19 19:45] LABS: Alanine Aminotransferase 12 U/L (6-50); Albumin Level 4.4 g/dL (3.5-5.1); Alkaline Phosphatase 50 U/L (38-126); Anion Gap 14 mmol/L (8-16); Aspartate Amino Transferase 26 U/L (17-59); Bilirubin,Total 0.5 mg/dL (0.2-1.3); Blood Urea Nitrogen 25 mg/dL (9-20); Calcium 8.7 mg/dL (8.4-10.2); Carbon Dioxide 22 mmol/L (22-30); Chloride 109 mmol/L (98-107); Estimated Glomerular Filt Rate 43; Glucose 99 mg/dL (65-110); Potassium 3.6 mmol/L (3.4-5.0); Sodium 145 mmol/L (137-145)
[2022-01-19 19:46] LABS: Basophils Absolute Auto 0.1 K/mm3 (0.0-0.1); Basophils Percent Auto 1.2 % (0.2-1.2); Eosinophils Absolute Auto 0.3 K/mm3 (0-0.3); Eosinophils Percent Auto 5.8 % (0-4.4); Hematocrit 33.8 % (42.0-52.0); Hemoglobin 9.7 g/dL (14.0-18.0); Immature Granulocyte Absolute 0.01 K/mm3 (0.00-0.031); Immature Granulocyte Percent A 0.2 % (0-0.5); Lymphocytes Absolute Auto 0.81 K/mm3 (0.9-3.2); Lymphocytes Percent Auto 14.2 % (18.3-44.2); Mean Corpuscular HGB Conc 28.7 g/dl (32-36); Mean Corpuscular Hemoglobin 24.6 pg (26-34); Mean Corpuscular Volume 85.8 fl (80-100); Mean Platelet Volume 10.8 fl (7.4-10.4); Monocytes Absolute Auto 0.6 K/mm3 (0.1-0.6); Monocytes Percent Auto 9.6 % (2.6-8.5); Platelet Count Result 220 k/mm3 (150-375); Red Blood Count 3.94 M/mm3 (4.6-6.20); Red Cell Distribution Width 15.4 % (11.5-14.5); White Blood Count 5.7 K/mm3 (4.5-10.0)
[2022-01-19 20:10] LABS: Prostate Specific Antigen 0.4 ng/mL (< OR = 4.0)
[2022-01-19 21:05] LABS: Platelet Estimate Adequate (Adequate)
[2022-01-19 21:06] LABS: Hypochromasia 1+ (NORMAL); Macrocytosis 2+ (NORMAL)
[2022-01-19 21:07] LABS: Schistocytes None Seen (NORMAL)
== END 2022-01-19 15:55 | disposition home or self-care (01) ==
PROVIDERS: PCP Family Medicine; Visit Provider Nurse Practitioner Family
DX: E03.9 Hypothyroidism, unspecified (principal); E78.5 Hyperlipidemia, unspecified; I10 Essential (primary) hypertension; Z12.5 Encounter for screening for malignant neoplasm of prostate
CPT/HCPCS: 36415; 80053; 84153; 84443; 85025; G0103

== ENCOUNTER 2022-02-15 11:40 | Outpatient (CLI) | payer MEDICARE, OTHER, SELFPAY ==
[2022-02-15 19:31] LABS: Basophils Absolute Auto 0.1 K/mm3 (0.0-0.1); Basophils Percent Auto 1.3 % (0.2-1.2); Eosinophils Absolute Auto 0.3 K/mm3 (0-0.3); Eosinophils Percent Auto 4.3 % (0-4.4); Hematocrit 33.7 % (42.0-52.0); Hemoglobin 9.5 g/dL (14.0-18.0); Immature Granulocyte Absolute 0.02 K/mm3 (0.00-0.031); Immature Granulocyte Percent A 0.3 % (0-0.5); Lymphocytes Absolute Auto 0.82 K/mm3 (0.9-3.2); Lymphocytes Percent Auto 12.9 % (18.3-44.2); Mean Corpuscular HGB Conc 28.2 g/dl (32-36); Mean Corpuscular Hemoglobin 23.8 pg (26-34); Mean Corpuscular Volume 84.5 fl (80-100); Mean Platelet Volume 10.4 fl (7.4-10.4); Monocytes Absolute Auto 0.6 K/mm3 (0.1-0.6); Monocytes Percent Auto 9.5 % (2.6-8.5); Neutrophils Absolute Auto 4.6 K/mm3 (1.3-6.7); Neutrophils Percent Auto 71.7 % (45.5-73.1); Platelet Count Result 259 k/mm3 (150-375); Red Blood Count 3.99 M/mm3 (4.6-6.20); Red Cell Distribution Width 14.6 % (11.5-14.5); White Blood Count 6.3 K/mm3 (4.5-10.0)
[2022-02-15 19:40] LABS: Alanine Aminotransferase 12 U/L (6-50); Albumin Level 3.9 g/dL (3.5-5.1); Alkaline Phosphatase 47 U/L (38-126); Anion Gap 11 mmol/L (8-16); Aspartate Amino Transferase 26 U/L (17-59); Bilirubin,Total 0.7 mg/dL (0.2-1.3); Blood Urea Nitrogen 29 mg/dL (9-20); Calcium 8.5 mg/dL (8.4-10.2); Carbon Dioxide 26 mmol/L (22-30); Chloride 104 mmol/L (98-107); Estimated Glomerular Filt Rate 40; Glucose 105 mg/dL (65-110); Potassium 3.8 mmol/L (3.4-5.0); Sodium 141 mmol/L (137-145)
[2022-02-15 20:01] LABS: Iron 32 ug/dL (49-181)
[2022-02-15 20:15] LABS: Percent Iron Saturation 7 % (20-50)
[2022-02-15 20:42] LABS: Ferritin 6.51 ng/mL (11.1-264)
[2022-02-15 20:48] LABS: Platelet Estimate Adequate (Adequate); Schistocytes None Seen (NORMAL)
[2022-02-15 20:49] LABS: Anisocytosis 1+ (NORMAL); Hypochromasia 1+ (NORMAL)
== END 2022-02-15 11:41 | disposition home or self-care (01) ==
LOC: ANHGOSHLAB 11:43
PROVIDERS: PCP Family Medicine; Visit Provider Nurse Practitioner Family
DX: D64.9 Anemia, unspecified (principal); N18.32 Chronic kidney disease, stage 3b
CPT/HCPCS: 36415; 80053; 82607; 82728; 83540; 83550; 85025

== ENCOUNTER 2022-04-11 10:53 | Inpatient (IN) | payer MEDICARE, OTHER, SELFPAY ==
[2022-04-11] VITALS (22 sets, daily range): BP systolic 115–138; BP diastolic 49–78; PULSE 62–113; RESP 18–20; TEMP 35.5–36.6; O2SAT 97–100; BMI 57.4
--- NOTE | ~2022-04-11 | US_ITS ---
Duplex Sonography of the bilateral lower extremities: Indication: Fever, swelling Sagittal and transverse B-mode images as well as color-flow imaging were performed on the right and l eft femoral and popliteal veins. B-mode examination was done without and with compression in the tra nsverse plane. There is good visualization of the bilateral common femoral, proximal profunda femora l, superficial femoral, greater saphenous, and popliteal veins. Normal flow was seen on color-flow im aging. Normal compressibility was demonstrated. Bilateral posterior tibial and peroneal veins are also patent. Impression: No evidence of deep vein thrombosis involving either lower extremity. Reviewed, dictated and finalized at location M. C THERAPIST Impression: No evidence of deep vein thrombosis involving either lower extremit y.
--- NOTE | ~2022-04-11 | XR_ITS ---
EXAMINATION: XR chest 1V portable DATE: 04/11/2022 12:19 INDICATION: Shortness of breath. TECHNIQUE: A single frontal view of the chest was obtained. COMPARISON: Chest 2 views 07/28/2021, chest CT 06/20/2021 FINDINGS: There is a small right pleural effusion. There are airspace opacities at the lung bases. No pneumothorax. Cardiomegaly is noted. IMPRESSION: 1. Small right pleural effusion, improved from 07/28/2021. 2. Airspace opacities at the lung bases, consistent with atelectasis versus pneumonia. 3. Cardiomegaly. Reviewed, dictated and finalized at location A. CLOSER IMPRESSION: 1. Small right pleural effusion, improved from 07/28/2021. 2. Airspace opacities at the lung bases, consistent with atelectasis versus pne umonia. 3. Cardiomegaly.
--- NOTE | ~2022-04-11 | CT_ITS ---
Non-contrast CT scan of the Abdomen and Pelvis Clinical indication: Abdominal pain, fever Technique: 5 mm axial scans were obtained through the abdomen and pelvis without intravenous or oral contrast. Dose reduction technique was used on this scan by utilizing automated exposure control and iterative reconstruction technique. The dose-length product (DLP) was 2096.00 mGy-cm. COMPARISON: 06/20/2021 Findings: Images through the lung bases reveal partially imaged moderate right pleural effusion and small left pleural effusion. There is no evidence of renal or ureteral calculi. The kidneys and the ureters are nondilated. The liver, pancreas, and adrenals appear normal. Spleen is mildly enlarged. Cholecystectomy clips are present. There is no aortic aneurysm. There is no evidence of bowel obstruction. Fat-containing ventral hernia noted just inferior to the x iphoid process. Small fat-containing umbilical hernia is noted. Images through the pelvis were performed. There is no evidence of ascites or lymphadenopathy. Urinary bladder unremarkable. Prostate gland and seminal vesicles are unremarkable. Impression: Moderate right pleural effusion and small left pleural effusion. Mild splenomegaly, of uncertain etiology. Fat-containing ventral hernia just inferior to the xiphoid process. Additional small fat-containing u mbilical hernia is noted. Reviewed, dictated and finalized at location . IN FIXER Impression: Moderate right pleural effusion and small left pleural effusion. Mild splenomegaly, of uncertain etiology. Fat-containing ventral hernia just inferior to the xiphoid process. Additional small fat-containing umbilical hernia is noted.
--- NOTE | ~2022-04-11 | CT_ITS ---
EXAMINATION: CT diagnostic chest wo con DATE: 04/11/2022 14:21 INDICATION: Chest pain and shortness of breath TECHNIQUE: Computed tomography (CT) of the chest was performed without intravenous contrast. The dose -length product (DLP) was 921.33 mGy-cm. Automated exposure control and iterative reconstruction tech Cognection were employed. COMPARISON: 06/20/2021 FINDINGS: Cardiomegaly is noted. There is a small right pleural effusion with improvement since the c omparison examination. There is mild dependent atelectasis of the right lung. No pneumothorax is iden tified. Calcified coronary artery atherosclerosis is noted. There is a 2 mm nodule of the right upper lobe. There are no pathologically enlarged thoracic lymph nodes. Calcified right paratracheal lymph nodes are consistent with old granulomatous disease. Soft tissue edema is noted in the right lateral chest wall. There is an epigastric hernia containing fat and a small amount of the anterior wall of t he stomach. There is severe thoracic spondylosis. IMPRESSION: 1. Small right pleural effusion with interval improvement. 2. Cardiomegaly. 3. Mild dependent atelectasis of the right lung. 4. Epigastric hernia containing fat and a small amount of anterior wall of the stomach. Reviewed, dictated and finalized at location B. ER
--- NOTE | ~2022-04-11 | US_ITS ---
EXAMINATION: US renal BI DATE: 04/14/2022 13:54 INDICATION: Acute renal insufficiency TECHNIQUE: Multiple ultrasound grayscale images of the kidneys were obtained. COMPARISON: None. FINDINGS: The right kidney measures 9.9 x 5.4 x 4.5 cm. The left is poorly visualized measuring approximately 7 .0 x 4.9 x 3.9 cm. The kidneys demonstrate normal echogenicity. There is no hydronephrosis in either kidney. No stones identified. The bladder is normal. IMPRESSION: 1. Normal kidneys without hydronephrosis. Reviewed, dictated and finalized at location A. R AND CHASSIS INSPECTOR
--- NOTE | ~2022-04-11 | XR_ITS ---
Clinical Indication: Fever AP and lateral views of the chest: Comparison: 04/11/2022 Findings: The lungs are clear, without evidence of focal consolidation or pleural effusion. Cardiome diastinal silhouette is stable. Bones and soft tissues are unremarkable. Impression: Clear lungs. Reviewed, dictated and finalized at [facility]. FOOD SHREDDER OPERATOR Impression: Clear lungs.
--- NOTE | ~2022-04-11 | US_ITS ---
EXAMINATION: US right upper quadrant DATE: 04/22/2022 11:47 INDICATION: Cirrhosis of the liver. TECHNIQUE: Multiple grayscale and Doppler ultrasound images of the abdomen were obtained. COMPARISON: CT abdomen and pelvis 04/20/2022 FINDINGS: The visualized portions of the head and body of the pancreas are normal. The liver is herminio l without focal lesion. No liver surface nodularity. There is normal flow in main portal vein. The ga llbladder is absent. The common duct is normal and measures 7 mm. IMPRESSION: 1. Normal right upper quadrant ultrasound status post cholecystectomy. Reviewed, dictated and finalized at location A. R HOUSE CONTROL ROOM OPERATOR
--- NOTE | 2022-04-11 11:18 | PC.NURSE ---
report received from Lis WALKER including history and physical and plan of care
--- NOTE | 2022-04-11 11:19 | ECG_ITS ---
Measurements Intervals [place] Rate: 61 P: [place]: 0 QRS: -68 QRSD: 173 T: 7 QT: 465 QTc: 470 Interpretive Statements ATRIAL FIBRILLATION RIGHT BUNDLE BRANCH BLOCK LEFT ANTERIOR FASCICULAR BLOCK BASELINE ARTIFACT- I, II, AVR ABNORMAL ECG COMPARED TO ECG 07/28/2021 08:37:55 ATRIAL FIBRILLATION NOW PRESENT Electronically Signed On 04-11-2022 11:48:15 MEDICAL RECORDS ADMINISTRATOR by Reid Hubbard D.O.
--- NOTE | 2022-04-11 11:19 | ED.GENADULT ---
HPI - General Adult General Chief complaint: Shortness of Breath/Dyspnea Stated complaint: SOB with pitting edema to extremities Time Seen by Provider: 04/11/22 10:56 History of Present Illness HPI narrative: 72 years old white male scheduled to see Dr. Allen today,, was not able to get into the truck, legs give out, heavy and unable to pivot and get it inside the truck. Patient also complaining of progressive shortness of breath and chest pain for months. Patient lives alone, wheelchair-bound, bedside commode, urinal, slide boarded from the motor chair to bed. Full code, on BiPAP 4% at night, did not take his Lasix today because of the transportation he denies any fever, chills, nausea, vomiting. Patient feels like he is bloated all over his body from retaining a lot of fluid including upper and lower extremity, abdomen and back. Related Data Home Medications Medication Instructions Recorded Confirmed aspirin 81 mg tablet,delayed 81 mg PO DAILY 04/07/19 04/11/22 release (Aspir-) omeprazole magnesium 20 mg 20 mg PO DAILY 04/07/19 04/11/22 tablet,delayed release (Prilosec OTC) fluticasone propionate 50 1 spray intranasal DAILY 07/12/20 04/11/22 mcg/actuation nasal spray,suspension (Flonase Allergy Relief) loratadine 10 mg tablet (Claritin) 10 mg PO DAILY 07/12/20 04/11/22 acetaminophen 325 mg capsule 325 mg PO Q6H PRN Pain 04/20/21 04/11/22 (Tylenol) polyethylene glycol 3350 17 17 g PO PRN 06/02/21 01/19/22 gram/dose oral powder (Miralax) psyllium 1 packet PO PRN PRN Constipation 06/02/21 04/11/22 furosemide 40 mg tablet 40 mg PO BID 01/19/22 04/11/22 levothyroxine 200 mcg tablet 150 mcg PO QAM 01/19/22 04/11/22 Allergies Allergy/AdvReac Type Severity Reaction Status Date / Time Sulfa (Sulfonamide Allergy Mild Rash Verified 04/11/22 11:05 Antibiotics) Penicillins Allergy Unknown SWELLING Verified 04/11/22 11:05 codeine AdvReac Mild N/V Verified 04/11/22 11:05 hydrocodone AdvReac Mild N/V Verified 04/11/22 11:05 tramadol AdvReac Mild Nausea Verified 04/11/22 11:05 Review of Systems Review of Systems: All systems reviewed & are unremarkable except as noted in HPI and below PMFSH Past Medical History Medical History Atrial fibrillation Chronic congestive heart failure Review of his EMR last recorded Echocardiogram on 10/2017 showed EF 68% with grade II diastolic dysfunction. Chronic low back pain Chronic venous insufficiency CKD (chronic kidney disease) stage 3, GFR 30-59 ml/min Dyslipidemia Environmental allergies Essential (primary) hypertension GERD without esophagitis Hypothyroidism Lymphedema of both lower extremities Ocular rosacea AMELIA (obstructive sleep apnea) Peripheral polyneuropathy Rosacea Surgical History Surgical History H/O eye surgery (~2005) [id number] [facility] History of cholecystectomy (~2008) History of discectomy 2013 History of foot surgery Left Foot History of rotator cuff surgery bilateral History of thoracic surgery Pericardial effusion s/p pericardial window thought secondary to minoxidil, in 2010 at [facility] Family History Family History Father Cardiovascular disease Grandparent Cancer Mother COPD (chronic obstructive pulmonary disease) Father Family history of cardiovascular disease Grandparent Family history of malignant neoplasm Social History Social History Smoking packs per day: 1.5 Smoking cigarettes per day: 30.0 Years smoked: 30 Smoking pack-years: 45.00 Smoking status: Former smoker Second hand tobacco smoke exposure: No Alcohol intake: current Alcohol use details: consumes 1 beer daily Substance use: never Substance use type: does not use Gender identity (if verbalized by the patient): Male S
[2022-04-11] MEDS: ASPIRIN 81 MG CHEWABLE TABLET 324 MG PO (11:46)
[2022-04-11 11:58] LABS: Basophils Absolute Auto 0.1 K/mm3 (0.0-0.1); Basophils Percent Auto 0.9 % (0.2-1.2); Eosinophils Absolute Auto 0.3 K/mm3 (0-0.3); Eosinophils Percent Auto 3.8 % (0-4.4); Hematocrit 37.8 % (42.0-52.0); Hemoglobin 9.9 g/dL (14.0-18.0); Immature Granulocyte Absolute 0.05 K/mm3 (0.00-0.031); Immature Granulocyte Percent A 0.6 % (0-0.5); Lymphocytes Absolute Auto 0.61 K/mm3 (0.9-3.2); Lymphocytes Percent Auto 7.6 % (18.3-44.2); Mean Corpuscular HGB Conc 26.2 g/dl (32-36); Mean Corpuscular Hemoglobin 22.4 pg (26-34); Mean Corpuscular Volume 85.7 fl (80-100); Mean Platelet Volume 10.9 fl (7.4-10.4); Monocytes Absolute Auto 0.7 K/mm3 (0.1-0.6); Monocytes Percent Auto 8.6 % (2.6-8.5); Neutrophils Absolute Auto 6.3 K/mm3 (1.3-6.7); Neutrophils Percent Auto 78.5 % (45.5-73.1); Platelet Count Result 317 k/mm3 (150-375); Red Blood Count 4.41 M/mm3 (4.6-6.20); Red Cell Distribution Width 16.2 % (11.5-14.5); White Blood Count 8.1 K/mm3 (4.5-10.0)
[2022-04-11 12:07] LABS: Alanine Aminotransferase 13 U/L (6-50); Albumin Level 3.1 g/dL (3.5-5.1); Alkaline Phosphatase 40 U/L (38-126); Anion Gap 4 mmol/L (8-16); Aspartate Amino Transferase 21 U/L (17-59); Bilirubin,Total 0.3 mg/dL (0.2-1.3); Blood Urea Nitrogen 25 mg/dL (9-20); Calcium 7.9 mg/dL (8.4-10.2); Carbon Dioxide 28 mmol/L (22-30); Chloride 107 mmol/L (98-107); Estimated CRCL calculation 57 ml/min; Estimated Glomerular Filt Rate 37; Glucose 99 mg/dL (65-110); Potassium 3.6 mmol/L (3.4-5.0); Sodium 139 mmol/L (137-145)
[2022-04-11 12:10] LABS: INR 1.8
[2022-04-11 12:11] LABS: Partial Thromboplastin Time 32.1 SECONDS (22.3-36.8)
[2022-04-11 12:12] LABS: Schistocytes None Seen (NORMAL)
[2022-04-11 12:13] LABS: Anisocytosis 1+ (NORMAL); Hypochromasia 2+ (NORMAL); Platelet Estimate Adequate (Adequate)
[2022-04-11 12:18] LABS: NT Pro B Type Natriuretic Pept 5560 pg/mL (19.9-100); Troponin I 0.023 ng/mL (0.000-0.034)
[2022-04-11 12:34] LABS: Influenza A QL RT-PCR Negative (Negative); Influenza B QL RT-PCR Negative (Negative); SARS-CoV-2 RNA PCR Negative
--- NOTE | 2022-04-11 14:25 | PM.IMHP ---
H&P: HPI History of Present Illness Date/Time: 04/11/22 14:25 Chief Complaint: Ground level fall. Narrative: This is a very pleasant 72-year-old male with hypertension, dyslipidemia, heart failure with preserved ejection fraction atrial fibrillation on chronic anticoagulation, hypothyroidism, sleep apnea, GERD, chronic kidney disease, and chronic lymphedema of the lower extremities who presented to the emergency department via for evaluation after a ground level fall. He has been wheelchair bound and uses a motorized scooter at home, transferring the 8 of a slide board into bed and to the commode. He had a routine appointment with Dr. Allen today and his friend came over to take him to that appointment. The patient had difficulties getting up into his F150 truck, even with the help of his son and friend, and he eventually tired when trying to pull himself up instead he slid down onto the ground onto his buttocks. EMS was called for lift assist and he was brought in for evaluation due to increasing weakness. Luckily he did not injure himself in the fall and there was no head trauma or loss of consciousness. Per patient report he required temporary dialysis in the spring of 2021 and at that time he lost over 100 pound. That weight has returned plus some and he has had increasing difficulties getting up and around. It takes all he can to get his legs up into bed at night and he is winded from the effort. He states compliance with his BiPAP and home medication and denies significant dietary indiscretion. He has not noticed a decrease in urine output though he occasionally has troubles urinating due to the swelling that is up into the scrotum. He denies fever, chills, sweats, cold and flu symptoms, chest pain, pleuritic pain, palpitations, nausea, vomiting, diarrhea, and dysuria. Review of Systems Review of Systems: Twelve systems were reviewed and are negative except for as per HPI. [facility] Past Medical History Medical History (Updated 04/11/22 @ 23:34 by Carie Pereyra PA-C) Atrial fibrillation Chronic acquired lymphedema Chronic anemia Chronic congestive heart failure Echocardiogram in May 2021 was technically difficult and showed normal LV systolic function with an EF of 60 to 65%, severely enlarged RV chamber with moderate to severely reduced RV systolic function, severe biatrial enlargement, and moderate pulmonary hypertension. Chronic kidney disease Chronic low back pain Chronic venous insufficiency CKD (chronic kidney disease) stage 3, GFR 30-59 ml/min Required temporary dialysis and spring 2021. Dyslipidemia Environmental allergies Essential (primary) hypertension GERD without esophagitis Hypothyroidism Lymphedema of both lower extremities Obstructive sleep apnea Ocular rosacea Peripheral polyneuropathy Rosacea Surgical History Surgical History (Updated 04/11/22 @ 14:42 by Carie Pereyra PA-C) H/O eye surgery (~2005) [id number] [facility] History of carpal tunnel release History of cholecystectomy (2008) History of discectomy (2012) History of foot surgery Left Foot History of rotator cuff surgery Bilateral. History of thoracic surgery Pericardial effusion s/p pericardial window thought secondary to minoxidil, in 2010 at [facility]. Family History Family History Father Cardiovascular disease Grandparent Cancer Mother COPD (chronic obstructive pulmonary disease) Father Family history of cardiovascular disease Grandparent Family history of malignant neoplasm Social History Social History (Updated 04/11/22 @ 23:30 by Carie Pereyra PA-C) Social History: Surrogate medical decision maker: Shyla Hurst, daughter. Code status: Full code. Smoking packs per day: 1.5 Smoking cigarettes per day: 30.0 Years smoked: 30 Smoking pack-years: 45.00 Smoking status: Former smoker Second hand tobacco smoke exposure: No Alcoho
--- NOTE | 2022-04-11 14:35 | PC.NURSE ---
received report on pt, reviewed plan of care
[2022-04-11 14:38] LABS: Troponin I 0.023 ng/mL (0.000-0.034)
--- NOTE | 2022-04-11 15:20 | ADMGEN ---
This patient, Irwin Cyr Jr., was admitted to 3 [facility] Surg Room 316-01. Patient/family oriented to hospital policies and general routines including ID bracelet, bed and alarms, visiting hours, pain management, procedures, bathroom and other care routines, personal items, smoking policy, room service/diet, and visiting hours. Information on how to activate the Rapid Response Team has been discussed. Patient/Family are encouraged to report perceived risks to care and to ask questions if they do not understand what they are told or what they should do.
[2022-04-11] MEDS: FUROSEMIDE INJ 40 MG/4 ML VIAL IV PUSH (15:38)
[2022-04-11 17:53] LABS: Troponin I 0.025 ng/mL (0.000-0.034)
--- NOTE | 2022-04-11 18:19 | PC.NURSE ---
call to pharmacy for dose of rocephin previously due
[2022-04-12] VITALS (14 sets, daily range): BP systolic 114–140; BP diastolic 57–63; PULSE 54–113; RESP 16–20; TEMP 36.4–36.7; O2SAT 91–100; BMI 10.0
[2022-04-12] MEDS: METOPROLOL TARTRATE 50 MG TAB PO ×3 (00:12→20:11)
[2022-04-12 01:42] LABS: Anion Gap 3 mmol/L (8-16); Blood Urea Nitrogen 24 mg/dL (9-20); Calcium 7.9 mg/dL (8.4-10.2); Carbon Dioxide 28 mmol/L (22-30); Chloride 104 mmol/L (98-107); Estimated CRCL calculation 57 ml/min; Estimated Glomerular Filt Rate 35; Glucose 87 mg/dL (65-110); Potassium 3.5 mmol/L (3.4-5.0); Sodium 135 mmol/L (137-145)
[2022-04-12] MEDS: LEVOTHYROXINE SODIUM 100 MCG TABLET 200 MCG PO (05:35)
[2022-04-12 06:15] LABS: Hematocrit 36.3 % (42.0-52.0); Hemoglobin 9.6 g/dL (14.0-18.0); Mean Corpuscular HGB Conc 26.4 g/dl (32-36); Mean Corpuscular Hemoglobin 22.5 pg (26-34); Mean Corpuscular Volume 85.2 fl (80-100); Mean Platelet Volume 10.2 fl (7.4-10.4); Platelet Count Result 303 k/mm3 (150-375); Red Blood Count 4.26 M/mm3 (4.6-6.20); Red Cell Distribution Width 16.3 % (11.5-14.5); White Blood Count 6.3 K/mm3 (4.5-10.0)
[2022-04-12 06:33] LABS: Anion Gap 4 mmol/L (8-16); Blood Urea Nitrogen 24 mg/dL (9-20); Carbon Dioxide 28 mmol/L (22-30); Chloride 107 mmol/L (98-107); Estimated CRCL calculation 57 ml/min; Estimated Glomerular Filt Rate 35; Glucose 94 mg/dL (65-110); Magnesium 2.5 mg/dL (1.6-2.3); Potassium 3.9 mmol/L (3.4-5.0); Sodium 139 mmol/L (137-145)
[2022-04-12] MEDS: acetaZOLAMIDE TAB 250 MG TABLET PO ×2 (08:30→17:53)
[2022-04-12] MEDS: FLUTICASONE PROPIONATE 0.05% NA SPR 16 GM BTL (*BKC) 1 SPRAY NASAL (08:30)
[2022-04-12] MEDS: APIXABAN 5 MG TABLET PO ×2 (08:30→20:11)
[2022-04-12] MEDS: GABAPENTIN 300 MG CAPSULE PO ×3 (08:30→17:53)
[2022-04-12] MEDS: LORATADINE 10 MG TABLET PO (08:31)
[2022-04-12] MEDS: ASPIRIN 81 MG ENTERIC TABLET PO (08:31)
[2022-04-12] MEDS: ASPIRIN 81 MG CHEWABLE TABLET PO (08:31)
[2022-04-12] MEDS: FERROUS SULFATE 324 MG TABLET PO (08:31)
[2022-04-12] MEDS: TAMSULOSIN HCL 0.4 MG CAPSULE PO (08:31)
[2022-04-12] MEDS: POTASSIUM CHLORIDE 20 MEQ TABLET.ER 40 MEQ PO (08:31)
[2022-04-12] MEDS: PANTOPRAZOLE 40 MG TABLET PO (08:31)
[2022-04-12] MEDS: minoxidiL 10 MG TABLET PO (08:32)
[2022-04-12] MEDS: BUMETANIDE INJ 1 MG/4 ML VIAL 2 MG IV PUSH ×2 (08:48→17:52)
[2022-04-12 08:58] LABS: Free T4 Free Thyroxine Reflex 0.77 ng/dL (0.78-2.19)
[2022-04-12] MEDS: ACETAMINOPHEN 500 MG TABLET 1000 MG PO ×2 (09:07→21:17)
--- NOTE | 2022-04-12 09:26 | PM.CNCAR ---
Assessment and Plan Assessment and plan (1) Acute on chronic congestive heart failure: Code(s): I50.9 - Heart failure, unspecified Status: Acute Assessment and Plan: He has right-sided heart failure. His left ventricular systolic function is preserved, EF 60-65%. He also has moderate pulmonary hypertension, PASP 51 mmHg. Agree with IV Bumex 2 mg b.i.d. He is also on acetazolamide strict intake and output daily weights he did require intermittent hemodialysis for volume removal, may need this again. low-sodium diet (2) Fall from ground level: Code(s): W18.30XA - Fall on same level, unspecified, initial encounter Status: Acute Assessment and Plan: per patient report, secondary to weakness. PT/OT (3) Chronic kidney disease: Code(s): N18.9 - Chronic kidney disease, unspecified Status: Acute Assessment and Plan: He does have stage 3 chronic kidney disease . It looks like his baseline creatinine is around 1.5. 1.9 today. Monitor closely with aggressive diuresis. Daily BMP. (4) Obstructive sleep apnea: Code(s): G47.33 - Obstructive sleep apnea (adult) (pediatric) Status: Acute Assessment and Plan: On BiPAP (5) Atrial fibrillation: Code(s): I48.91 - Unspecified atrial fibrillation Status: Acute Assessment and Plan: rate controlled. Continue systemic anticoagulation. History of Present Illness History of Present Illness Consult date/time: 04/12/22 09:26 Reason For Visit: history of chf,lower extremity edema,unable to amb Narrative: Mr. Cyr Is a 72-year-old male with a past medical history significant for morbid obesity, obstructive sleep apnea on BiPAP, heart failure with preserved ejection fraction, atrial fibrillation, and chronic kidney disease. This is a patient who is followed in our office by Dr. Allen. He required a lengthy hospitalization here back in May of 2021 for acute on chronic heart failure. During that hospitalization he required intermittent dialysis for volume removal. Patient states that since that hospital stay is he has been unable to follow-up with Dr. Allen because of other hospitalizations /rehab stays. He has not required any hospitalizations for heart failure, but he did fall and break his leg. He comes to the hospital now with complaints of severe lower extremity edema, abdominal distention, progressive shortness of breath, and orthopnea. Currently, he is breathing comfortably on room air and denies any chest pain, palpitations, syncope, or presyncope. He does state that he recently fell while trying to get into his car for an appointment with Dr. Allen. he did not have any loss of consciousness, he states that he fell because of excessive weakness and heaviness in his legs. Review of Systems Constitutional: Constitutional: Denies chills, Denies fever(s), Denies headache(s) and Denies malaise Eyes: Eyes: Denies change in vision ENT: Reports Normal hearing present, Denies dizziness, Denies headache(s) and Denies hearing loss Cardiovascular: Cardiovascular: Denies chest pain, Denies chest pain at rest, Denies chest pain with activity, Denies syncope, Reports pedal edema, Reports leg edema and Denies palpitations Respiratory: Respiratory: Reports chest congestion, Denies cough, Reports dyspnea, Reports dyspnea on exertion and Denies wheezing Gastrointestinal: Gastrointestinal: Denies abdominal pain, Reports bloating, Denies constipation and Denies diarrhea Genitourinary: Genitourinary: Denies hematuria and Denies dysuria Musculoskeletal: Musculoskeletal: Denies myalgias, Denies arthralgias and Denies muscle cramps Integumentary/Breasts: Skin/Breast: Denies wounds Neurologic: Reports Normal hearing present, Denies confusion, Denies dizziness, Denies syncope and Denies headache(s) Psychiatric: Psychiatric: Denies anxiety, Denies confusion and Denies depression Endocrine
--- NOTE | 2022-04-12 11:46 | PM.IMPN ---
Progress Note: A&P Assessment and Plan (1) Acute on chronic congestive heart failure: Code(s): I50.9 - Heart failure, unspecified Status: Acute Assessment and Plan: Appreciate cardiology consultation, IV diuresis (2) Fall from ground level: Code(s): W18.30XA - Fall on same level, unspecified, initial encounter Status: Acute (3) Chronic acquired lymphedema: Code(s): I89.0 - Lymphedema, not elsewhere classified Status: Acute (4) Chronic kidney disease: Code(s): N18.9 - Chronic kidney disease, unspecified Status: Acute Assessment and Plan: Consult Nephrology, previously needed dialysis to get fluid off (5) Chronic anemia: Code(s): D64.9 - Anemia, unspecified Status: Acute (6) Obstructive sleep apnea: Code(s): G47.33 - Obstructive sleep apnea (adult) (pediatric) Status: Acute (7) Chronic anticoagulation: Code(s): Z79.01 - [facility] (current) use of anticoagulants Status: Acute (8) Atrial fibrillation: Code(s): I48.91 - Unspecified atrial fibrillation Status: Acute Plan DVT prophylaxis with Eliquis GI prophylaxis with Protonix Code status full code Subjective Date/time seen: 04/12/22 11:46 Interval history: No overnight events noted. No chest pain or shortness of breath. No nausea, vomiting or diarrhea. No fevers or chills. Review of Systems Review of Systems: 12 point review of systems was assessed and was negative except as noted in the HPI Exam Narrative: General: No acute distress, alert and oriented per baseline HEENT: Atraumatic, normocephalic, mucous membranes moist CV: Regular rate and rhythm, S1, S2 Lungs: Clear to auscultation bilaterally, no rales or crackles noted, no wheezes, good air entry Abdomen: Soft, nontender, nondistended Extremities: Significant pitting edema bilaterally up to thighs Skin: No rashes noted, no lesions or wounds seen Psych: Euthymic, normal affect Objective Data Vital Signs Vital Signs: Vital Signs - 24 hr 04/11/22 12:19 04/11/22 12:30 04/11/22 12:50 Temperature Pulse Rate 73 73 73 Respiratory Rate Blood Pressure Pulse Oximetry Oxygen Delivery Oxygen Flow Rate 04/11/22 13:00 04/11/22 13:16 04/11/22 13:30 Temperature Pulse Rate 73 65 68 Respiratory Rate Blood Pressure Pulse Oximetry Oxygen Delivery Oxygen Flow Rate 04/11/22 13:31 04/11/22 13:45 04/11/22 14:05 Temperature Pulse Rate 65 72 73 Respiratory Rate Blood Pressure 115/62 Pulse Oximetry Oxygen Delivery Oxygen Flow Rate 04/11/22 15:32 04/11/22 16:00 04/11/22 20:00 Temperature 96 F L Pulse Rate 74 71 Respiratory Rate 20 Blood Pressure 138/50 L Pulse Oximetry 100 100 Oxygen Delivery Nasal Cannula Oxygen Flow Rate 2 04/11/22 22:35 04/11/22 22:36 04/11/22 22:00 Temperature 97.8 F Pulse Rate 113 H 88 Respiratory Rate 20 Blood Pressure 115/49 L Pulse Oximetry 97 97 99 Oxygen Delivery Autopap Autopap Oxygen Flow Rate 4 04/12/22 00:12 04/11/22 20:00 04/12/22 00:00 Temperature Pulse Rate 84 84 90 Respiratory Rate Blood Pressure Pulse Oximetry Oxygen Delivery Oxygen Flow Rate 04/12/22 04:00 04/12/22 05:04 04/12/22 06:00 Temperature 97.5 F L Pulse Rate 54 L 71 56 L Respiratory Rate 18 Blood Pressure 114/59 L Pulse Oximetry 96 100 Oxygen Delivery Autopap Oxygen Flow Rate 04/12/22 08:31 Temperature Pulse Rate 64 Respiratory Rate Blood Pressure Pulse Oximetry Oxygen Delivery Oxygen Flow Rate Intake/Output Intake/Output: Intake & Output 04/09/22 04/10/22 04/11/22 04/12/22 23:59 23:59 23:59 23:59 Intake Total 740 640 Output Total 650 1025 Balance 90 -385 Meds/Results Medications: Active Medications Generic Name Dose Route Start Last Admin Trade Name Freq PRN Reason Stop Dose Admin Acetaminophe
[2022-04-13] VITALS (13 sets, daily range): BP systolic 122–128; BP diastolic 56–63; PULSE 55–111; RESP 14–18; TEMP 36.4–37.3; O2SAT 95–99
[2022-04-13] MEDS: LEVOTHYROXINE SODIUM 100 MCG TABLET 200 MCG PO (05:51)
--- NOTE | 2022-04-13 08:26 | P.CDI_ITS ---
CDI Query Clarification Request acute on chronic diastolic heart failure <Leonarda Luis DO - Last Filed: 04/16/22 16:40> Clarified Diagnosis Clarified Diagnosis: Pt with elevated BNP on 04/11/22 lab work. Pt with documented history of CHF. Pt takes furosemide as a home medication and is receiving Bumex as an inpatient. PT with documented weight gain, edema and shortness of breath with exertion. CHF noted on the assessment and plan. Please specify type and acuity of heart failure if known. * Acute * Chronic * Acute on Chronic * Unknown * Systolic * Diastolic * Combined Systolic and Diastolic * Unknown <Jonna Owens RN - Last Filed: 04/13/22 08:31>
[2022-04-13] MEDS: BUMETANIDE INJ 1 MG/4 ML VIAL 2 MG IV PUSH ×2 (09:21→16:58)
[2022-04-13] MEDS: POTASSIUM CHLORIDE 20 MEQ TABLET.ER 40 MEQ PO (09:22)
[2022-04-13] MEDS: TAMSULOSIN HCL 0.4 MG CAPSULE PO (09:22)
[2022-04-13] MEDS: PANTOPRAZOLE 40 MG TABLET PO (09:22)
[2022-04-13] MEDS: ASPIRIN 81 MG ENTERIC TABLET PO (09:23)
[2022-04-13] MEDS: GABAPENTIN 300 MG CAPSULE PO ×3 (09:23→16:58)
[2022-04-13] MEDS: acetaZOLAMIDE TAB 250 MG TABLET PO ×2 (09:23→16:59)
[2022-04-13] MEDS: LORATADINE 10 MG TABLET PO (09:23)
[2022-04-13] MEDS: minoxidiL 10 MG TABLET PO (09:23)
[2022-04-13] MEDS: FERROUS SULFATE 324 MG TABLET PO (09:23)
[2022-04-13] MEDS: ACETAMINOPHEN 500 MG TABLET 1000 MG PO ×2 (09:23→21:55)
[2022-04-13] MEDS: FLUTICASONE PROPIONATE 0.05% NA SPR 16 GM BTL (*BKC) 1 SPRAY NASAL (09:23)
[2022-04-13] MEDS: APIXABAN 5 MG TABLET PO (09:23)
[2022-04-13] MEDS: METOPROLOL TARTRATE 50 MG TAB PO ×2 (09:24→20:34)
--- NOTE | 2022-04-13 09:29 | PM.PNCARD ---
Progress Note: A&P Assessment and Plan (1) Acute on chronic congestive heart failure: Code(s): I50.9 - Heart failure, unspecified Status: Acute Assessment and Plan: He has right-sided heart failure. His left ventricular systolic function is preserved, EF 60-65%. He also has moderate pulmonary hypertension, PASP 51 mmHg. Agree with IV Bumex 2 mg b.i.d. He is also on acetazolamide strict intake and output daily weights Unfortunately he is not making much urine and is becoming more edematous. Will try one dose of metolazone and observe his response. he did require intermittent hemodialysis for volume removal, may need this again. Nephrology has been consulted. low-sodium diet (2) Fall from ground level: Code(s): W18.30XA - Fall on same level, unspecified, initial encounter Status: Acute Assessment and Plan: per patient report, secondary to weakness. PT/OT (3) Chronic kidney disease: Code(s): N18.9 - Chronic kidney disease, unspecified Status: Acute Assessment and Plan: He does have stage 3 chronic kidney disease . It looks like his baseline creatinine is around 1.5. Today's BMP pending. Monitor closely with aggressive diuresis. Daily BMP. (4) Obstructive sleep apnea: Code(s): G47.33 - Obstructive sleep apnea (adult) (pediatric) Status: Acute Assessment and Plan: On BiPAP (5) Atrial fibrillation: Code(s): I48.91 - Unspecified atrial fibrillation Status: Acute Assessment and Plan: rate controlled. Subjective Date/time seen: 04/13/22 09:29 Cardiology follow up for CHF, Afib He's feeling worse today. He is even more swollen, now with swelling in his upper extremities. He is not urinating much. Review of Systems Constitutional: Constitutional: Denies chills, Denies fever(s), Denies headache(s) and Denies malaise Eyes: Eyes: Denies change in vision ENT: Reports Normal hearing present, Denies dizziness, Denies headache(s) and Denies hearing loss Cardiovascular: Cardiovascular: Denies chest pain, Denies chest pain at rest, Denies chest pain with activity, Denies syncope, Reports pedal edema, Reports leg edema, Denies palpitations, Reports dyspnea and Reports dyspnea on exertion Respiratory: Respiratory: Reports chest congestion, Denies cough, Reports dyspnea, Reports dyspnea on exertion and Denies wheezing Gastrointestinal: Gastrointestinal: Denies abdominal pain, Reports bloating, Denies constipation and Denies diarrhea Genitourinary: Genitourinary: Denies hematuria and Denies dysuria Musculoskeletal: Musculoskeletal: Denies myalgias, Denies arthralgias and Denies muscle cramps Integumentary/Breasts: Skin/Breast: Denies wounds Neurologic: Reports Normal hearing present, Denies confusion, Denies dizziness, Denies syncope and Denies headache(s) Psychiatric: Psychiatric: Denies anxiety, Denies confusion and Denies depression Endocrine: Endocrine: Denies cold intolerance, Denies flushing, Denies heat intolerance and Denies palpitations Hematologic/Lymphatic: Hematologic/Lymphatic: Denies easy bleeding and Denies easy bruising Allergic/Immunologic: Allergic/Immunologic: Denies wheezing Exam Const: General: comfortable, no acute distress, alert and awake; No confusion Orientation/consciousness: patient oriented x3 and No confusion Other: Morbidly obese HENMT: Head: normal to inspection Eyes: General: appearance normal, both eyes and all related structures Pupils: Equal, round and reactive pupils present Neck: Neck: normal visual inspection, supple and no JVD Carotids: normal carotid upstroke Other: difficult to assess JVD due to body habitus Resp: Effort & Inspection: normal respiratory effort Auscultation: clear to auscultation bilaterally and diminished lung sounds Other: posterior respiratory examination difficult, no crackles, rales, wheezes anteriorly. Cardio: Rate: regular rat
[2022-04-13] MEDS: polyethylene glycoL 3350 17 GM POWD.PACK PO (12:30)
[2022-04-13] MEDS: PSYLLIUM POWDER PACKET 1 PACKET PO (12:30)
[2022-04-13 12:43] LABS: Anion Gap 3 mmol/L (8-16); Blood Urea Nitrogen 27 mg/dL (9-20); Calcium 8.1 mg/dL (8.4-10.2); Carbon Dioxide 29 mmol/L (22-30); Chloride 106 mmol/L (98-107); Estimated CRCL calculation 54 ml/min; Estimated Glomerular Filt Rate 33; Glucose 101 mg/dL (65-110); Potassium 4.3 mmol/L (3.4-5.0); Sodium 138 mmol/L (137-145)
--- NOTE | 2022-04-13 13:08 | PM.IMPN ---
Progress Note: A&P Assessment and Plan (1) Acute on chronic congestive heart failure: Code(s): I50.9 - Heart failure, unspecified Status: Acute Assessment and Plan: Appreciate cardiology consultation, IV diuresis Trial metolazone, dec UOP, concern for need for HD (2) Fall from ground level: Code(s): W18.30XA - Fall on same level, unspecified, initial encounter Status: Acute Assessment and Plan: PT/O when able (3) Chronic acquired lymphedema: Code(s): I89.0 - Lymphedema, not elsewhere classified Status: Acute Assessment and Plan: worsened from HF (4) Chronic kidney disease: Code(s): N18.9 - Chronic kidney disease, unspecified Status: Acute Assessment and Plan: Consult Nephrology, previously needed dialysis to get fluid off, anticipate need for HD catheter placement soon (5) Chronic anemia: Code(s): D64.9 - Anemia, unspecified Status: Acute Assessment and Plan: near baseline, 12-10, defer top nephro for further intervention (6) Obstructive sleep apnea: Code(s): G47.33 - Obstructive sleep apnea (adult) (pediatric) Status: Acute Assessment and Plan: apnea link tonight (7) Chronic anticoagulation: Code(s): Z79.01 - snf (current) use of anticoagulants Status: Acute Assessment and Plan: stable, will hold prior to catheter insertion if needed (8) Atrial fibrillation: Code(s): I48.91 - Unspecified atrial fibrillation Status: Acute Assessment and Plan: rate controlled Plan DVT prophylaxis with Eliquis GI prophylaxis with Protonix Code status full code Subjective Date/time seen: 04/13/22 13:08 Interval history: No overnight events noted. No chest pain or shortness of breath. No nausea, vomiting or diarrhea. No fevers or chills. Review of Systems Review of Systems: 12 point review of systems was assessed and was negative except as noted in the HPI Exam Narrative: General: No acute distress, alert and oriented per baseline HEENT: Atraumatic, normocephalic, mucous membranes moist CV: Regular rate and rhythm, S1, S2 Lungs: Clear to auscultation bilaterally, no rales or crackles noted, no wheezes, good air entry Abdomen: Soft, nontender, nondistended Extremities: Significant pitting edema bilaterally up to thighs, edema in RUE, hands as well Skin: No rashes noted, no lesions or wounds seen Psych: Euthymic, normal affect Objective Data Vital Signs Vital Signs: Vital Signs - 24 hr 04/12/22 13:20 04/12/22 13:36 04/12/22 13:49 Temperature 97.9 F Pulse Rate 75 Respiratory Rate 20 Blood Pressure 140/63 Pulse Oximetry 94 Oxygen Delivery Room Air Room Air Oxygen Flow Rate 04/12/22 16:00 04/12/22 20:11 04/12/22 20:00 Temperature Pulse Rate 83 113 H Respiratory Rate Blood Pressure Pulse Oximetry Oxygen Delivery Room Air Oxygen Flow Rate 04/12/22 21:18 04/12/22 22:30 04/12/22 22:30 Temperature 98.1 F Pulse Rate 84 98 Respiratory Rate 16 Blood Pressure 120/57 L Pulse Oximetry 91 95 95 Oxygen Delivery Autopap Autopap Oxygen Flow Rate 4 04/12/22 20:00 04/13/22 00:00 04/13/22 02:10 Temperature Pulse Rate 112 H 83 96 Respiratory Rate Blood Pressure Pulse Oximetry 95 Oxygen Delivery Autopap Oxygen Flow Rate 04/13/22 04:00 04/13/22 06:19 04/13/22 09:24 Temperature 98.0 F Pulse Rate 55 L 55 L 68 Respiratory Rate 18 Blood Pressure 122/56 L Pulse Oximetry 99 Oxygen Delivery Oxygen Flow Rate 04/13/22 09:20 Temperature Pulse Rate Respiratory Rate Blood Pressure Pulse Oximetry Oxygen Delivery Room Air Oxygen Flow Rate Intake/Output Intake/Output: Intake & Output 04/10/22 04/11/22 04/12/22 04/13/22 23:59 23:59 23:59 23:59 Intake Total 740 1570 462 Output Total 650 1025 Balance 90 545 462 Meds/Results Medications:
--- NOTE | 2022-04-13 14:55 | PM.CNNEP ---
Assessment and Plan Assessment and plan (1) JENA (acute kidney injury): Code(s): N17.9 - Acute kidney failure, unspecified Status: Acute Assessment and Plan: likely precipitated by aggressive IV diuresis however, in the past, renal venous HTN from chronic overload has led to this issue as well check renal ultrasound follow-up on urine electrolytes follow repeat labs and UOP (2) Chronic kidney disease, stage 3: Code(s): N18.30 - Chronic kidney disease, stage 3 unspecified Status: Chronic Assessment and Plan: baseline creatinine runs ~ 1.4 - 1.7mg/dl this causes him to fluctuate between CKD stage 3A and stage 3B due to hypertension and chronic pre renal azotemia due to his poorly functioning heart (3) Acute on chronic congestive heart failure: Code(s): I50.9 - Heart failure, unspecified Status: Acute Assessment and Plan: due to right sided heart failure complicated by moderate pulmonary HTN will titrate IV bumex -- increase to TID dosing may benefit from scheduled metolazone as well in the past, he has required ultrafiltration/dialyis to stabilize his volume status (4) Volume overload: Code(s): E87.70 - Fluid overload, unspecified Status: Acute Assessment and Plan: see #3 (5) Obstructive sleep apnea: Code(s): G47.33 - Obstructive sleep apnea (adult) (pediatric) Status: Chronic Assessment and Plan: continue CPAP therapy reports compliance at home (6) Fall from ground level: Code(s): W18.30XA - Fall on same level, unspecified, initial encounter Status: Acute Assessment and Plan: as noted 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 He is worried that diuretic therapy alone will not optimize his fluid status and that he may require renal replacement therapy/dry ultrafiltration as he has needed in the past. Unfortunately, I agree, that he remains at risk for this intervention but perhaps may be titration of his diuretic therapy is needed 1st prior to any other type invasive therapy. He voiced understanding. Will continue to follow. History of Present Illness Reason for Consult Consult date: 04/13/22 Reason for consult: acute renal failure (on chronic kidney disease) and Other (volume overload) Chief Complaint Chief complaint: history of chf,lower extremity edema,unable to amb History of Present Illness Narrative: The patient is a 72-year-old male with an extensive past medical history who presents to [facility] Emergency room for further evaluation after a fall. The patient apparently had a schedule point with his pressure steamer tender on the day of admission. However, he had significant and severe difficulty getting into his car despite the assistance his son and a friend any eventually had a ground level fall onto his buttocks. Given the difficulty in trying to get him up after the fall, EMS was called and he was brought into the emergency room for further assessment. On further questioning, the patient did not have any syncope or loss of consciousness or head trauma both prior to or after the fall. He reported no chest pain, palpitations, or dizziness. Unfortunately, however, he has noted increase in his weight that he thinks is all fluid that is probably partly the reason for his fall as he is unable to keep himself balanced because of this issue. He has noticed swelling that is somewhat chronic in his lower extremities but more so in his upper abdomen as well as his arms. Workup and evaluation in the emergency room demonstrated the patient be hemodynamically stable and routine blood test demonstrated stability in his renal function as well. However, it seemed clear by exam that he had significant swelling edema much worse than his baseline. Furthermore, he reports s
[2022-04-13] MEDS: metOLazone 2.5 MG TABLET PO (15:40)
[2022-04-13] MEDS: BUMETANIDE INJ 1 MG/4 ML VIAL 3 MG IV PUSH (20:32)
[2022-04-13] MEDS: metOLazone 5 MG TABLET PO (20:34)
[2022-04-14] VITALS (11 sets, daily range): BP systolic 127–141; BP diastolic 53–60; PULSE 54–111; RESP 14–18; TEMP 36.2–37.9; O2SAT 93–98
--- NOTE | 2022-04-14 05:24 | PCRCNOTE ---
patient was on his home unit with a 4L oxygen bleed in during oximetry study
[2022-04-14] MEDS: LEVOTHYROXINE SODIUM 100 MCG TABLET 200 MCG PO (06:26)
[2022-04-14 07:28] LABS: Basophils Absolute Auto 0.1 K/mm3 (0.0-0.1); Basophils Percent Auto 1.4 % (0.2-1.2); Eosinophils Absolute Auto 0.4 K/mm3 (0-0.3); Eosinophils Percent Auto 6.3 % (0-4.4); Hematocrit 35.9 % (42.0-52.0); Hemoglobin 9.7 g/dL (14.0-18.0); Immature Granulocyte Absolute 0.03 K/mm3 (0.00-0.031); Immature Granulocyte Percent A 0.5 % (0-0.5); Lymphocytes Absolute Auto 0.76 K/mm3 (0.9-3.2); Lymphocytes Percent Auto 11.7 % (18.3-44.2); Mean Corpuscular Hemoglobin 22.7 pg (26-34); Mean Corpuscular Volume 83.9 fl (80-100); Mean Platelet Volume 10.5 fl (7.4-10.4); Monocytes Absolute Auto 0.8 K/mm3 (0.1-0.6); Neutrophils Absolute Auto 4.4 K/mm3 (1.3-6.7); Neutrophils Percent Auto 68.1 % (45.5-73.1); Platelet Count Result 292 k/mm3 (150-375); Red Blood Count 4.28 M/mm3 (4.6-6.20); Red Cell Distribution Width 16.2 % (11.5-14.5); White Blood Count 6.5 K/mm3 (4.5-10.0)
[2022-04-14 07:35] LABS: Alanine Aminotransferase 10 U/L (6-50); Albumin Level 2.9 g/dL (3.5-5.1); Alkaline Phosphatase 35 U/L (38-126); Anion Gap 3 mmol/L (8-16); Aspartate Amino Transferase 17 U/L (17-59); Bilirubin,Total 0.5 mg/dL (0.2-1.3); Blood Urea Nitrogen 27 mg/dL (9-20); Carbon Dioxide 30 mmol/L (22-30); Chloride 105 mmol/L (98-107); Estimated CRCL calculation 51 ml/min; Estimated Glomerular Filt Rate 31; Glucose 91 mg/dL (65-110); Potassium 3.7 mmol/L (3.4-5.0); Sodium 138 mmol/L (137-145)
--- NOTE | 2022-04-14 08:10 | PM.IMPN ---
Progress Note: A&P Assessment and Plan (1) Acute on chronic congestive heart failure: Code(s): I50.9 - Heart failure, unspecified Status: Acute Assessment and Plan: Appreciate cardiology consultation, IV diuresis Metolazone seemed to improve urine output dramatically, continue to monitor (2) Fall from ground level: Code(s): W18.30XA - Fall on same level, unspecified, initial encounter Status: Acute Assessment and Plan: PT/O when able (3) Chronic acquired lymphedema: Code(s): I89.0 - Lymphedema, not elsewhere classified Status: Acute Assessment and Plan: worsened from HF (4) Chronic kidney disease: Code(s): N18.9 - Chronic kidney disease, unspecified Status: Acute Assessment and Plan: Appreciate nephrology consultation, continue to monitor (5) Chronic anemia: Code(s): D64.9 - Anemia, unspecified Status: Acute Assessment and Plan: near baseline, -, defer top nephro for further intervention (6) Obstructive sleep apnea: Code(s): G47.33 - Obstructive sleep apnea (adult) (pediatric) Status: Chronic Assessment and Plan: No signs of sleep apnea noted on the [facility] (7) Chronic anticoagulation: Code(s): Z79.01 - intermediate frame tender (current) use of anticoagulants Status: Acute Assessment and Plan: stable, will hold prior to catheter insertion if needed (8) Atrial fibrillation: Code(s): I48.91 - Unspecified atrial fibrillation Status: Acute Assessment and Plan: rate controlled Plan DVT prophylaxis with Eliquis, continue Eliquis for now, will need to be held of HD catheter needs to be placed GI prophylaxis with Protonix Code status full code Subjective Date/time seen: 04/14/22 08:10 Interval history: No overnight events noted. No chest pain or shortness of breath. No nausea, vomiting or diarrhea. No fevers or chills. States the swelling feels about the same as yesterday. He does admit to significant more urine output today compared to yesterday. Review of Systems Review of Systems: 12 point review of systems was assessed and was negative except as noted in the HPI Exam Narrative: General: No acute distress, alert and oriented per baseline HEENT: Atraumatic, normocephalic, mucous membranes moist CV: Regular rate and rhythm, S1, S2 Lungs: Clear to auscultation bilaterally, no rales or crackles noted, no wheezes, good air entry Abdomen: Soft, nontender, nondistended Extremities: Significant pitting edema bilaterally up to thighs, edema in RUE, hands as well Skin: No rashes noted, no lesions or wounds seen Psych: Euthymic, normal affect Objective Data Vital Signs Vital Signs: Vital Signs - 24 hr 04/13/22 09:24 04/13/22 09:20 04/13/22 13:59 Temperature 97.6 F Pulse Rate 68 84 Respiratory Rate 18 Blood Pressure 128/59 L Pulse Oximetry 95 Oxygen Delivery Room Air Oxygen Flow Rate 04/13/22 12:00 04/13/22 16:00 04/13/22 20:34 Temperature Pulse Rate 92 83 80 Respiratory Rate Blood Pressure Pulse Oximetry Oxygen Delivery Oxygen Flow Rate 04/13/22 20:00 04/13/22 21:43 04/13/22 20:00 Temperature 99.2 F Pulse Rate 111 H 84 Respiratory Rate 14 Blood Pressure 122/63 Pulse Oximetry 96 Oxygen Delivery Room Air Oxygen Flow Rate 04/14/22 00:00 04/14/22 04:00 04/14/22 05:43 Temperature 97.2 F L Pulse Rate 76 58 L 54 L Respiratory Rate 14 Blood Pressure 138/60 Pulse Oximetry 98 Oxygen Delivery Oxygen Flow Rate 04/13/22 22:50 04/13/22 22:50 Temperature Pulse Rate 108 H Respiratory Rate Blood Pressure Pulse Oximetry 96 96 Oxygen Delivery CPAP Oxygen Flow Rate 4 Intake/Output Intake/Output: Intake & Output 04/11/22 04/12/22 04/13/22 04/14/22 23:59 23:59 23:59 23:59 Intake Total 740 1570 1002 750 Output Total 650 1025 2800 Balance 90 876 9064 -2739
[2022-04-14 08:49] LABS: Hypochromasia 1+ (NORMAL); Ovalocytes 1+ (NORMAL); Platelet Estimate Adequate (Adequate); Schistocytes None Seen (NORMAL)
[2022-04-14] MEDS: TAMSULOSIN HCL 0.4 MG CAPSULE PO (09:09)
[2022-04-14] MEDS: BUMETANIDE INJ 2.5 MG/10 ML VIAL 2 MG IV PUSH ×3 (09:09→17:58)
[2022-04-14] MEDS: POTASSIUM CHLORIDE 20 MEQ TABLET.ER 40 MEQ PO (09:10)
[2022-04-14] MEDS: minoxidiL 10 MG TABLET PO (09:10)
[2022-04-14] MEDS: ASPIRIN 81 MG ENTERIC TABLET PO (09:10)
[2022-04-14] MEDS: FERROUS SULFATE 324 MG TABLET PO (09:10)
[2022-04-14] MEDS: GABAPENTIN 300 MG CAPSULE PO ×3 (09:10→17:59)
[2022-04-14] MEDS: METOPROLOL TARTRATE 50 MG TAB PO ×2 (09:10→20:29)
[2022-04-14] MEDS: PANTOPRAZOLE 40 MG TABLET PO (09:10)
[2022-04-14] MEDS: LORATADINE 10 MG TABLET PO (09:10)
[2022-04-14] MEDS: ACETAMINOPHEN 500 MG TABLET 1000 MG PO ×2 (09:10→21:02)
[2022-04-14] MEDS: acetaZOLAMIDE TAB 250 MG TABLET PO ×2 (09:11→17:59)
[2022-04-14] MEDS: polyethylene glycoL 3350 17 GM POWD.PACK PO (09:11)
[2022-04-14] MEDS: FLUTICASONE PROPIONATE 0.05% NA SPR 16 GM BTL (*BKC) 1 SPRAY NASAL (09:11)
[2022-04-14] MEDS: PSYLLIUM POWDER PACKET 1 PACKET PO (09:53)
--- NOTE | 2022-04-14 10:06 | PM.PNCARD ---
Progress Note: A&P Assessment and Plan (1) Acute on chronic congestive heart failure: Code(s): I50.9 - Heart failure, unspecified Status: Acute Assessment and Plan: He has right-sided heart failure. His left ventricular systolic function is preserved, EF 60-65%. He also has moderate pulmonary hypertension, PASP 51 mmHg. Low sodium diet, strict I/Os, daily weights. Improved urine output response with increasing Bumex to TID and giving Metolazone Continue with Bumex 2mg IV TID. Continue with Acetazolamide. May need Metolazone again. He did require intermittent hemodialysis for volume removal on past admission, may need this again. Nephrology has been consulted. (2) Fall from ground level: Code(s): W18.30XA - Fall on same level, unspecified, initial encounter Status: Acute Assessment and Plan: Per patient report, secondary to weakness. PT/OT (3) Chronic kidney disease: Code(s): N18.9 - Chronic kidney disease, unspecified Status: Acute Assessment and Plan: He does have stage 3 chronic kidney disease . It looks like his baseline creatinine is around 1.5. Monitor closely with aggressive diuresis. Daily BMP. (4) Obstructive sleep apnea: Code(s): G47.33 - Obstructive sleep apnea (adult) (pediatric) Status: Chronic Assessment and Plan: On BiPAP (5) Atrial fibrillation: Code(s): I48.91 - Unspecified atrial fibrillation Status: Acute Assessment and Plan: Rate controlled. Continue with beta chuck. Subjective Date/time seen: 04/14/22 10:06 Interval history: Reason for visit: Decompensated heart failure HPI: Mr. Cyr Is a 72-year-old male with a past medical history significant for morbid obesity, obstructive sleep apnea on BiPAP,? heart failure with preserved ejection fraction, atrial fibrillation, and chronic kidney disease.? ? This is a patient who is followed in our office by Dr. Allen. ? He required a lengthy hospitalization here back in May of 2021 for acute on chronic heart failure.? During that hospitalization he required intermittent dialysis for volume removal.? Patient states that since that hospital stay is he has been unable to follow-up with Dr. Allen because of other hospitalizations /rehab stays.? He has not required any hospitalizations for heart failure, but he did fall and break his leg.? He comes to the hospital now with complaints of severe lower extremity edema, abdominal distention, progressive shortness of breath, and orthopnea.? ? Currently, he is breathing comfortably on room air and denies any chest pain, palpitations, syncope, or presyncope.? He does state that he recently fell while trying to get into his car for an appointment with Dr. Allen. ? He did not have any loss of consciousness, he states that he fell because of excessive weakness and heaviness in his legs. Date of service 04/13: He's feeling worse today.? He is even more swollen, now with swelling in his upper extremities.? He is not urinating much. Date of service 04/14: Patient reports urinating all night with the increased dose of IV diuretic and addition of metolazone. Still volume overloaded. Review of Systems Review of Systems: 8-point ROS obtained. Negative, unless stated in HPI. Exam Const: General: comfortable, no acute distress, alert and awake; No confusion Orientation/consciousness: patient oriented x3 and No confusion Other: Morbidly obese HENMT: Head: normal to inspection Eyes: General: appearance normal, both eyes and all related structures Neck: Neck: normal visual inspection Other: Difficult to assess JVD due to body habitus Resp: Effort & Inspection: normal respiratory effort Cardio: Rate: regular rate Rhythm: regular rhythm and abnormal rhythm irregularly irregular Heart sounds: S1 normal heart sound present, S2 normal heart sound present and no murmurs GI: Auscultation: normal bowel sounds Skin:
--- NOTE | 2022-04-14 12:03 | PCOTNOTE ---
Attempted to see pt for Occupational therapy treatment today. Pt refused to participate in any functional transfers, therapeutic activities, and/or self care tasks including having assist to use slide board to chair,maxi move to recliner, or participate while seated EOB. Pt refuses due to being too weak and increase fluid retention making him SOB. Pt was educated on the importance of early mobility to decrease edema and increase strengthening. Pt verbally agrees with therapist, however, continues to refuse stating maybe tomorrow... . RN was made aware of pt refusal for therapy today. Will continue per poc duration/frequency tomorrow.
--- NOTE | 2022-04-14 12:09 | PM.PNNEP ---
Progress Note: A&P Assessment and Plan (1) JENA (acute kidney injury): Code(s): N17.9 - Acute kidney failure, unspecified Status: Acute Assessment and Plan: likely precipitated by aggressive IV diuresis unfortunately he still has volume overload. This could be pre renal azotemia due to poor heart function. His echo does show a poorly functioning right ventricle and moderate pulmonary hypertension. This could be renal venous hypertension as well. At this point will continue IV diuretics. It sounds like his urine output has improved overnight so will continue the same diuretics and we will watch the creatinine. If the problem is the former issue than his creatinine will rise and we may need a new baseline creatinine to keep the fluid off. On the other hand if it is the latter issue then his creatinine may improve with diuretics. (2) Chronic kidney disease, stage 3: Code(s): N18.30 - Chronic kidney disease, stage 3 unspecified Status: Chronic Assessment and Plan: baseline creatinine runs ~ 1.4 - 1.7mg/dl this causes him to fluctuate between CKD stage 3A and stage 3B due to hypertension and chronic pre renal azotemia due to his poorly functioning heart (3) Acute on chronic congestive heart failure: Code(s): I50.9 - Heart failure, unspecified Status: Acute Assessment and Plan: due to right sided heart failure complicated by moderate pulmonary HTN Continue diuretic therapy. I agree dialysis is still a possibility. 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 Subjective Date/time seen: 04/14/22 12:09 Interval history: 04/14/2022 Irwin is feeling about the same. he tried to get up yesterday into a chair and became so short of breath he went back to bed. He received some extra diuretics last night and the gate opened . Review of Systems Cardiovascular: Cardiovascular: Reports no additional cardiovascular complaints Respiratory: Respiratory: Reports no additional respiratory complaints Gastrointestinal: Gastrointestinal: Reports no additional gastrointestinal complaints Genitourinary: Genitourinary: Reports no additional male genitourinary complaints Exam Narrative: WDWN in NAD skin no rash head ncat lungs clear cor reg no rub abd BS+ nontender and soft ext 2-3+ Bilateral edema. Objective Data Vital Signs Vital Signs: Vital Signs - 24 hr 04/13/22 13:59 04/13/22 16:00 04/13/22 20:34 Temperature 97.6 F Pulse Rate 84 83 80 Respiratory Rate 18 Blood Pressure 128/59 L Pulse Oximetry 95 Oxygen Delivery Oxygen Flow Rate 04/13/22 20:00 04/13/22 21:43 04/13/22 20:00 Temperature 99.2 F Pulse Rate 111 H 84 Respiratory Rate 14 Blood Pressure 122/63 Pulse Oximetry 96 Oxygen Delivery Room Air Oxygen Flow Rate 04/14/22 00:00 04/14/22 04:00 04/14/22 05:43 Temperature 97.2 F L Pulse Rate 76 58 L 54 L Respiratory Rate 14 Blood Pressure 138/60 Pulse Oximetry 98 Oxygen Delivery Oxygen Flow Rate 04/13/22 22:50 04/13/22 22:50 04/14/22 09:10 Temperature Pulse Rate 108 H 63 Respiratory Rate Blood Pressure Pulse Oximetry 96 96 Oxygen Delivery CPAP Oxygen Flow Rate 4 04/14/22 09:00 Temperature Pulse Rate Respiratory Rate Blood Pressure Pulse Oximetry Oxygen Delivery Room Air Oxygen Flow Rate Intake/Output Intake/Output: Intake & Output 04/11/22 04/12/22 04/13/22 04/14/22 23:59 23:59 23:59 23:59 Intake Total 740 1570 1002 990 Output Tot
[2022-04-14 12:43] LABS: Creatinine Urine 26.1 mg/dL; Total Protein Urine Random 7 mg/dL; Ur Ttl Prot Creatinine Ratio 0.27 mg/mg (0-0.20); Urea Random Urine 108 MG/DL
[2022-04-14 12:51] LABS: Sodium Urine Random 117 meq/L
--- NOTE | 2022-04-14 13:53 | PCPTNOTE ---
Pt refused PT treatment this date. Pt stated that he is just feeling too week and has too much fluid on him. Pt educated on importance of doing therapy to move around and improve strength but he said he will try tomorrow. Will continuer per PT plan of care.
[2022-04-14 14:37] LABS: Eosinophil Urine None Seen % (None Seen)
[2022-04-14] MEDS: metOLazone 5 MG TABLET PO (17:59)
[2022-04-15] VITALS (10 sets, daily range): BP systolic 110–129; BP diastolic 46–71; PULSE 53–91; RESP 14–20; TEMP 36.1–36.8; O2SAT 92–100
[2022-04-15] MEDS: LEVOTHYROXINE SODIUM 100 MCG TABLET 200 MCG PO (06:35)
[2022-04-15 07:16] LABS: Basophils Absolute Auto 0.1 K/mm3 (0.0-0.1); Basophils Percent Auto 1.5 % (0.2-1.2); Eosinophils Absolute Auto 0.5 K/mm3 (0-0.3); Eosinophils Percent Auto 7.9 % (0-4.4); Hematocrit 36.1 % (42.0-52.0); Hemoglobin 9.7 g/dL (14.0-18.0); Immature Granulocyte Absolute 0.03 K/mm3 (0.00-0.031); Immature Granulocyte Percent A 0.4 % (0-0.5); Lymphocytes Absolute Auto 0.76 K/mm3 (0.9-3.2); Lymphocytes Percent Auto 11.1 % (18.3-44.2); Mean Corpuscular HGB Conc 26.9 g/dl (32-36); Mean Corpuscular Hemoglobin 22.5 pg (26-34); Mean Corpuscular Volume 83.8 fl (80-100); Mean Platelet Volume 10.4 fl (7.4-10.4); Monocytes Absolute Auto 0.8 K/mm3 (0.1-0.6); Neutrophils Absolute Auto 4.6 K/mm3 (1.3-6.7); Neutrophils Percent Auto 67.1 % (45.5-73.1); Platelet Count Result 289 k/mm3 (150-375); Red Blood Count 4.31 M/mm3 (4.6-6.20); Red Cell Distribution Width 16.2 % (11.5-14.5); White Blood Count 6.8 K/mm3 (4.5-10.0)
[2022-04-15 07:31] LABS: Alanine Aminotransferase 10 U/L (6-50); Alkaline Phosphatase 22 U/L (38-126); Anion Gap 2 mmol/L (8-16); Aspartate Amino Transferase 32 U/L (17-59); Bilirubin,Total 0.6 mg/dL (0.2-1.3); Blood Urea Nitrogen 30 mg/dL (9-20); Calcium 7.8 mg/dL (8.4-10.2); Carbon Dioxide 30 mmol/L (22-30); Chloride 100 mmol/L (98-107); Estimated CRCL calculation 53 ml/min; Estimated Glomerular Filt Rate 33; Glucose 93 mg/dL (65-110); Potassium 3.6 mmol/L (3.4-5.0); Sodium 132 mmol/L (137-145)
[2022-04-15 08:02] LABS: Anisocytosis 1+ (NORMAL); Hypochromasia 1+ (NORMAL); Microcytosis 1+ (NORMAL); Platelet Estimate Adequate (Adequate); Schistocytes None Seen (NORMAL)
[2022-04-15] MEDS: BUMETANIDE INJ 2.5 MG/10 ML VIAL 2 MG IV PUSH ×3 (09:43→18:03)
[2022-04-15] MEDS: ACETAMINOPHEN 500 MG TABLET 1000 MG PO ×2 (09:46→21:37)
[2022-04-15] MEDS: POTASSIUM CHLORIDE 20 MEQ TABLET.ER 40 MEQ PO (09:46)
[2022-04-15] MEDS: polyethylene glycoL 3350 17 GM POWD.PACK PO (09:47)
[2022-04-15] MEDS: PSYLLIUM POWDER PACKET 1 PACKET PO (09:48)
[2022-04-15] MEDS: FERROUS SULFATE 324 MG TABLET PO (09:49)
[2022-04-15] MEDS: ASPIRIN 81 MG ENTERIC TABLET PO (09:50)
[2022-04-15] MEDS: FLUTICASONE PROPIONATE 0.05% NA SPR 16 GM BTL (*BKC) 1 SPRAY NASAL (09:50)
[2022-04-15] MEDS: GABAPENTIN 300 MG CAPSULE PO ×3 (09:50→16:49)
[2022-04-15] MEDS: minoxidiL 10 MG TABLET PO (09:50)
[2022-04-15] MEDS: TAMSULOSIN HCL 0.4 MG CAPSULE PO (09:50)
[2022-04-15] MEDS: LORATADINE 10 MG TABLET PO (09:50)
[2022-04-15] MEDS: PANTOPRAZOLE 40 MG TABLET PO (09:52)
[2022-04-15] MEDS: acetaZOLAMIDE TAB 250 MG TABLET PO ×2 (09:53→16:49)
[2022-04-15] MEDS: METOPROLOL TARTRATE 50 MG TAB PO ×2 (10:02→21:30)
--- NOTE | 2022-04-15 10:06 | PM.PNCARD ---
Progress Note: A&P Assessment and Plan (1) Acute on chronic congestive heart failure: Code(s): I50.9 - Heart failure, unspecified Status: Acute Assessment and Plan: He has right-sided heart failure. His left ventricular systolic function is preserved, EF 60-65%. He also has moderate pulmonary hypertension, PASP 51 mmHg. Low sodium diet, strict I/Os, daily weights. Improved urine output response with increasing Bumex to TID and giving Metolazone Continue with Bumex 2mg IV TID. Continue with Acetazolamide. May need Metolazone again. He did require intermittent hemodialysis for volume removal on past admission, may need this again. Nephrology has been consulted. (2) Fall from ground level: Code(s): W18.30XA - Fall on same level, unspecified, initial encounter Status: Acute Assessment and Plan: Per patient report, secondary to weakness. PT/OT (3) Chronic kidney disease: Code(s): N18.9 - Chronic kidney disease, unspecified Status: Acute Assessment and Plan: He does have stage 3 chronic kidney disease . It looks like his baseline creatinine is around 1.5. Monitor closely with aggressive diuresis. Daily BMP. (4) Obstructive sleep apnea: Code(s): G47.33 - Obstructive sleep apnea (adult) (pediatric) Status: Chronic Assessment and Plan: On BiPAP (5) Atrial fibrillation: Code(s): I48.91 - Unspecified atrial fibrillation Status: Acute Assessment and Plan: Rate controlled. Continue with beta chuck. Subjective Date/time seen: 04/15/22 10:06 Interval history: Reason for visit: Decompensated heart failure HPI: Mr. Cyr Is a 72-year-old male with a past medical history significant for morbid obesity, obstructive sleep apnea on BiPAP,? heart failure with preserved ejection fraction, atrial fibrillation, and chronic kidney disease.? ? This is a patient who is followed in our office by Dr. Allen. ? He required a lengthy hospitalization here back in May of 2021 for acute on chronic heart failure.? During that hospitalization he required intermittent dialysis for volume removal.? Patient states that since that hospital stay is he has been unable to follow-up with Dr. Allen because of other hospitalizations /rehab stays.? He has not required any hospitalizations for heart failure, but he did fall and break his leg.? He comes to the hospital now with complaints of severe lower extremity edema, abdominal distention, progressive shortness of breath, and orthopnea.? ? Currently, he is breathing comfortably on room air and denies any chest pain, palpitations, syncope, or presyncope.? He does state that he recently fell while trying to get into his car for an appointment with Dr. Allen. ? He did not have any loss of consciousness, he states that he fell because of excessive weakness and heaviness in his legs. Date of service 04/13: He's feeling worse today.? He is even more swollen, now with swelling in his upper extremities.? He is not urinating much. Date of service 04/14: Patient reports urinating all night with the increased dose of IV diuretic and addition of metolazone. Still volume overloaded. Date of service 04/15: Patient states he feels the same. Still urinating a good amount. Review of Systems Review of Systems: 8-point ROS obtained. Negative, unless stated in HPI. Exam Const: General: comfortable, no acute distress, alert and awake; No confusion Orientation/consciousness: patient oriented x3 and No confusion Other: Morbidly obese HENMT: Head: normal to inspection Eyes: General: appearance normal, both eyes and all related structures Neck: Neck: normal visual inspection Other: Difficult to assess JVD due to body habitus Resp: Effort & Inspection: normal respiratory effort Cardio: Rate: regular rate Rhythm: regular rhythm and abnormal rhythm irregularly irregular Heart sounds: S1 normal heart sound present, S2
--- NOTE | 2022-04-15 10:19 | PM.PNNEP ---
Progress Note: A&P Assessment and Plan (1) JENA (acute kidney injury): Code(s): N17.9 - Acute kidney failure, unspecified Status: Acute Assessment and Plan: JENA. Multiple issues contributing to his high creatinine. He has complex hemodynamics going in his arteries and veins. He still has volume overload. His creatinine seems to be tolerating his high volume diuresis. Will give another dose of metolazone today. (2) Chronic kidney disease, stage 3: Code(s): N18.30 - Chronic kidney disease, stage 3 unspecified Status: Chronic Assessment and Plan: baseline creatinine runs ~ 1.4 - 1.7mg/dl this causes him to fluctuate between CKD stage 3A and stage 3B due to hypertension and chronic pre renal azotemia due to his poorly functioning heart (3) Acute on chronic congestive heart failure: Code(s): I50.9 - Heart failure, unspecified Status: Acute Assessment and Plan: due to right sided heart failure complicated by moderate pulmonary HTN Continue diuretic therapy. I agree dialysis is still a possibility , however so far so good.. 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 Subjective Date/time seen: 04/15/22 10:19 Interval history: 04/14/2022 Irwin is feeling about the same. he tried to get up yesterday into a chair and became so short of breath he went back to bed. He received some extra diuretics last night and the gate opened . 04/15/2022 the patient feels about the same. He tried some physical therapy yesterday but he did not do much because of his weakness and shortness of breath. No chest pain. Belly is doing okay. He is eating well. Urinating fine. Exam Narrative: WDWN in NAD skin no rash head ncat lungs clear bilaterally cor reg no rub or gallop abd BS+ nontender and soft ext 2-3+ Bilateral edema. Objective Data Vital Signs Vital Signs: Vital Signs - 24 hr 04/14/22 14:36 04/14/22 12:00 04/14/22 16:00 Temperature 98.1 F Pulse Rate 76 72 82 Respiratory Rate 18 Blood Pressure 127/53 L Pulse Oximetry 93 Oxygen Delivery 04/14/22 20:29 04/14/22 21:49 04/14/22 20:00 Temperature 100.3 F H Pulse Rate 110 H 108 H Respiratory Rate 14 Blood Pressure 141/58 H Pulse Oximetry 93 93 Oxygen Delivery Room Air 04/14/22 20:00 04/15/22 00:00 04/15/22 04:00 Temperature Pulse Rate 111 H 71 53 L Respiratory Rate Blood Pressure Pulse Oximetry Oxygen Delivery 04/15/22 05:52 04/15/22 10:02 Temperature 96.9 F L Pulse Rate 53 L 63 Respiratory Rate 14 Blood Pressure 110/46 L Pulse Oximetry 100 Oxygen Delivery Intake/Output Intake/Output: Intake & Output 04/12/22 04/13/22 04/14/22 04/15/22 23:59 23:59 23:59 23:59 Intake Total 1570 1002 2120 990 Output Total 1025 5750 3100 Balance 545 1002 -3630 -2110 Meds/Results Medications: Active Medications Generic Name Dose Route Start Last Admin Trade Name Freq PRN Reason Stop Dose Admin Acetaminophen 1,000 mg 04/11/22 23:42 04/15/22 09:46 Acetaminophen 500 Mg Tablet PO 1,000 mg Q6H PRN Administration Pain Rated 1-3 Acetazolamide 250 mg 04/12/22 09:00 04/15/22 09:53 Acetazolamide Tab 250 Mg Tablet PO 250 mg BID ANGELA Administration Apixaban 5 mg 04/12/22 09:00 04/13/22 09:23 Apixaban 5 Mg Tablet PO 5 mg Q12HR ANGELA Administration Aspirin 81 mg 04/12/22 09:00 04/15/22 09:50 Aspirin 81 Mg Enteric Tablet PO 81 mg DAILY ANGELA Administration Bumetanide 2 mg
[2022-04-15] MEDS: metOLazone 5 MG TABLET PO (12:57)
--- NOTE | 2022-04-15 17:21 | PM.IMPN ---
Progress Note: A&P Assessment and Plan (1) Acute on chronic congestive heart failure: Code(s): I50.9 - Heart failure, unspecified Status: Acute Assessment and Plan: Appreciate cardiology consultation, IV diuresis Metolazone seemed to improve urine output dramatically, continue to monitor (2) Fall from ground level: Code(s): W18.30XA - Fall on same level, unspecified, initial encounter Status: Acute Assessment and Plan: PT/O when able (3) Chronic acquired lymphedema: Code(s): I89.0 - Lymphedema, not elsewhere classified Status: Acute Assessment and Plan: worsened from HF (4) Chronic kidney disease: Code(s): N18.9 - Chronic kidney disease, unspecified Status: Acute Assessment and Plan: Appreciate nephrology consultation, continue to monitor (5) Chronic anemia: Code(s): D64.9 - Anemia, unspecified Status: Acute Assessment and Plan: near baseline, -, defer top nephro for further intervention (6) Obstructive sleep apnea: Code(s): G47.33 - Obstructive sleep apnea (adult) (pediatric) Status: Chronic Assessment and Plan: No signs of sleep apnea noted on the ApneaLink (7) Chronic anticoagulation: 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 No chest pain or shortness of breath. No nausea, vomiting or diarrhea. No fevers or chills. Patient does state he feels constipated. He received MiraLax and is hopeful for a bowel movement today. Review of Systems Review of Systems: 12 point review of systems was assessed and was negative except as noted in the HPI Exam Narrative: General: No acute distress, alert and oriented per baseline HEENT: Atraumatic, normocephalic, mucous membranes moist CV: Regular rate and rhythm, S1, S2 Lungs: Clear to auscultation bilaterally, no rales or crackles noted, no wheezes, good air entry Abdomen: Soft, nontender, nondistended Extremities: Significant pitting edema bilaterally up to thighs, upper extremity edema seems reduced, hand edema much improved Psych: Euthymic, normal affect Objective Data Vital Signs Vital Signs: Vital Signs - 24 hr 04/14/22 20:29 04/14/22 21:49 04/14/22 20:00 Temperature 100.3 F H Pulse Rate 110 H 108 H Respiratory Rate 14 Blood Pressure 141/58 H Pulse Oximetry 93 93 Oxygen Delivery Room Air 04/14/22 20:00 04/15/22 00:00 04/15/22 04:00 Temperature Pulse Rate 111 H 71 53 L Respiratory Rate Blood Pressure Pulse Oximetry Oxygen Delivery 04/15/22 05:52 04/15/22 10:02 04/15/22 09:40 Temperature 96.9 F L Pulse Rate 53 L 63 Respiratory Rate 14 Blood Pressure 110/46 L Pulse Oximetry 100 Oxygen Delivery Room Air 04/15/22 14:00 Temperature 97.2 F L Pulse Rate 54 L Respiratory Rate 20 Blood Pressure 116/54 L Pulse Oximetry 96 Oxygen Delivery Intake/Output Intake/Output: Intake & Output 04/12/22 04/13/22 04/14/22 04/15/22 23:59 23:59 23:59 23:59 Intake Total 1570 1002 2120 1230 Output Total 1025 5750 3100 Balance 545 8893 -3630 -5270 Meds/Results Medications: Active Medications Generic Name Dose Route Start Last Admin Trade Name Freq PRN Reason Stop Dose Admin Acetaminophen 1,000 mg 04/11/22 23:42 04/15/22 09:46 Acetaminophen 500 Mg Tablet PO 1,000 mg Q6H PRN Administration Pain Rated 1-3 Acetazolamide 250 mg 04/01
[2022-04-15] MEDS: SENNA/DOCUSATE SODIUM TABLET 1 TAB PO (21:37)
[2022-04-15] MEDS: WATER FOR IRRIGATION, STERILE 1,000 ML BOTTLE 1000 ML (21:39)
[2022-04-16] VITALS (15 sets, daily range): BP systolic 122–140; BP diastolic 55–66; PULSE 50–108; RESP 16–18; TEMP 36.3–37.3; O2SAT 91–100
[2022-04-16] MEDS: LEVOTHYROXINE SODIUM 100 MCG TABLET 200 MCG PO (05:51)
[2022-04-16 06:53] LABS: Basophils Absolute Auto 0.1 K/mm3 (0.0-0.1); Basophils Percent Auto 1.5 % (0.2-1.2); Eosinophils Absolute Auto 0.5 K/mm3 (0-0.3); Eosinophils Percent Auto 8.6 % (0-4.4); Hematocrit 35.3 % (42.0-52.0); Hemoglobin 9.7 g/dL (14.0-18.0); Immature Granulocyte Absolute 0.03 K/mm3 (0.00-0.031); Immature Granulocyte Percent A 0.5 % (0-0.5); Lymphocytes Absolute Auto 0.69 K/mm3 (0.9-3.2); Lymphocytes Percent Auto 11.7 % (18.3-44.2); Mean Corpuscular HGB Conc 27.5 g/dl (32-36); Mean Corpuscular Hemoglobin 22.9 pg (26-34); Mean Corpuscular Volume 83.5 fl (80-100); Mean Platelet Volume 10.4 fl (7.4-10.4); Monocytes Absolute Auto 0.7 K/mm3 (0.1-0.6); Neutrophils Absolute Auto 3.9 K/mm3 (1.3-6.7); Neutrophils Percent Auto 65.7 % (45.5-73.1); Platelet Count Result 276 k/mm3 (150-375); Red Blood Count 4.23 M/mm3 (4.6-6.20); Red Cell Distribution Width 16.8 % (11.5-14.5); White Blood Count 5.9 K/mm3 (4.5-10.0)
[2022-04-16 07:01] LABS: Alanine Aminotransferase 11 U/L (6-50); Alkaline Phosphatase 38 U/L (38-126); Anion Gap 4 mmol/L (8-16); Aspartate Amino Transferase 19 U/L (17-59); Bilirubin,Total 0.5 mg/dL (0.2-1.3); Blood Urea Nitrogen 29 mg/dL (9-20); Carbon Dioxide 34 mmol/L (22-30); Chloride 100 mmol/L (98-107); Estimated CRCL calculation 53 ml/min; Estimated Glomerular Filt Rate 33; Glucose 96 mg/dL (65-110); Phosphorus 4.7 mg/dL (2.5-4.5); Potassium 3.4 mmol/L (3.4-5.0); Sodium 138 mmol/L (137-145)
[2022-04-16 07:46] LABS: Anisocytosis 1+ (NORMAL); Hypochromasia 2+ (NORMAL); Platelet Estimate Adequate (Adequate)
[2022-04-16 07:47] LABS: Schistocytes None Seen (NORMAL)
[2022-04-16] MEDS: FERROUS SULFATE 324 MG TABLET PO (08:48)
[2022-04-16] MEDS: ASPIRIN 81 MG ENTERIC TABLET PO (08:48)
[2022-04-16] MEDS: PANTOPRAZOLE 40 MG TABLET PO (08:48)
[2022-04-16] MEDS: LORATADINE 10 MG TABLET PO (08:48)
[2022-04-16] MEDS: GABAPENTIN 300 MG CAPSULE PO ×3 (08:48→17:25)
[2022-04-16] MEDS: minoxidiL 10 MG TABLET PO (08:48)
[2022-04-16] MEDS: METOPROLOL TARTRATE 50 MG TAB PO ×2 (08:48→21:03)
[2022-04-16] MEDS: FLUTICASONE PROPIONATE 0.05% NA SPR 16 GM BTL (*BKC) 1 SPRAY NASAL (08:51)
[2022-04-16] MEDS: BUMETANIDE INJ 2.5 MG/10 ML VIAL 2 MG IV PUSH ×3 (08:52→17:25)
[2022-04-16] MEDS: ACETAMINOPHEN 500 MG TABLET 1000 MG PO ×2 (09:09→22:00)
--- NOTE | 2022-04-16 09:09 | PC.NURSE ---
call to pharm for missing a.m meds
[2022-04-16] MEDS: acetaZOLAMIDE TAB 250 MG TABLET PO (10:21)
[2022-04-16] MEDS: TAMSULOSIN HCL 0.4 MG CAPSULE PO (10:21)
[2022-04-16] MEDS: polyethylene glycoL 3350 17 GM POWD.PACK PO (10:21)
[2022-04-16] MEDS: POTASSIUM CHLORIDE 20 MEQ TABLET.ER 40 MEQ PO (10:22)
--- NOTE | 2022-04-16 10:34 | PM.IMPN ---
Progress Note: A&P Assessment and Plan (1) Acute on chronic congestive heart failure: Code(s): I50.9 - Heart failure, unspecified Status: Acute Assessment and Plan: Appreciate cardiology consultation, IV diuresis with good results, cont to monitor Echo EF 60-65%, moderate pulm HTN, both atria severely enlarged, right ventricle function severely reduced (2) Fall from ground level: Code(s): W18.30XA - Fall on same level, unspecified, initial encounter Status: Acute Assessment and Plan: PT/O when able (3) Chronic acquired lymphedema: Code(s): I89.0 - Lymphedema, not elsewhere classified Status: Acute Assessment and Plan: worsened from HF, improving slowly (4) Chronic kidney disease: Code(s): N18.9 - Chronic kidney disease, unspecified Status: Acute Assessment and Plan: Appreciate nephrology consultation, continue to monitor (5) Chronic anemia: Code(s): D64.9 - Anemia, unspecified Status: Acute Assessment and Plan: near baseline, 12-10, defer top nephro for further intervention (6) Obstructive sleep apnea: Code(s): G47.33 - Obstructive sleep apnea (adult) (pediatric) Status: Chronic Assessment and Plan: No signs of sleep apnea noted on the ApneaLink (7) Chronic 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 No chest pain or shortness of breath. No nausea, vomiting or diarrhea. No fevers or chills. Patient states he feels a little less swollen today. Review of Systems Review of Systems: 12 point review of systems was assessed and was negative except as noted in the HPI Exam Narrative: General: No acute distress, alert and oriented per baseline HEENT: Atraumatic, normocephalic, mucous membranes moist CV: Regular rate and rhythm, S1, S2 Lungs: Clear to auscultation bilaterally, no rales or crackles noted, no wheezes, good air entry Abdomen: Soft, nontender, nondistended Extremities: Significant pitting edema bilaterally up to thighs, upper extremity edema seems reduced, hand edema much improved Psych: Euthymic, normal affect Objective Data Vital Signs Vital Signs: Vital Signs - 24 hr 04/15/22 14:00 04/15/22 12:00 04/15/22 16:00 Temperature 97.2 F L Pulse Rate 54 L 88 53 L Respiratory Rate 20 Blood Pressure 116/54 L Pulse Oximetry 96 Oxygen Delivery 04/15/22 21:30 04/15/22 21:30 04/16/22 00:15 Temperature 98.2 F Pulse Rate 68 78 72 Respiratory Rate 18 Blood Pressure 129/71 Pulse Oximetry 92 93 Oxygen Delivery Autopap 04/15/22 20:00 04/16/22 00:00 04/16/22 04:00 Temperature Pulse Rate 91 55 L 53 L Respiratory Rate Blood Pressure Pulse Oximetry Oxygen Delivery 04/16/22 05:11 04/16/22 05:33 04/16/22 08:48 Temperature 98.6 F Pulse Rate 50 L 88 84 Respiratory Rate 18 Blood Pressure 133/55 L Pulse Oximetry 100 94 Oxygen Delivery Autopap Intake/Output Intake/Output: Intake & Output 04/13/22 04/14/22 04/15/22 04/16/22 23:59 23:59 23:59 23:59 Intake Total 1002 2120 1860 790 Output Total 5750 6200 2200 Balance 1002 -3630 -4340 -1410 Meds/Results Medications: Active Medications Generic Name Dose Route Start Last Admin Trade Name Marcosq PRN Reason Stop Dose Admin Acetaminophen 1,000 mg 04/11/22 23:42 04/16/22 09:09 Acetaminophen 500 Mg Tablet PO 1,000 mg
--- NOTE | 2022-04-16 11:44 | P.PNNP_ITS ---
Progress Note: A&P Assessment and Plan (1) JENA (acute kidney injury): Code(s): N17.9 - Acute kidney failure, unspecified Status: Acute Assessment and Plan: * Multiple issues contributing to his elevated creatinine: * complex hemodynamics going in his vasculature * volume overload * possible renal venous hypertension * continue diuresis as tolerated * follow repeat labs and UOP (2) Chronic kidney disease, stage 3: Code(s): N18.30 - Chronic kidney disease, stage 3 unspecified Status: Chronic Assessment and Plan: * baseline creatinine runs ~ 1.4 - 1.7mg/dl * this causes him to fluctuate between CKD stage 3A and stage 3B * due to hypertension and chronic pre renal azotemia due to his poorly functioning heart (3) Acute on chronic congestive heart failure: Qualifiers: Heart failure type: right-sided Qualified Code(s): I50.813 - Acute on chronic right heart failure Code(s): I50.9 - Heart failure, unspecified Status: Acute Assessment and Plan: * due to right sided heart failure complicated by moderate pulmonary HTN * continue aggressive IV diuretic therapy (4) Obstructive sleep apnea: Code(s): G47.33 - Obstructive sleep apnea (adult) (pediatric) Status: Chronic Assessment and Plan: * continue CPAP therapy * reports compliance at home (5) Fall from ground level: Code(s): W18.30XA - Fall on same level, unspecified, initial encounter Status: Acute Assessment and Plan: * 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 Subjective Date/time seen: 04/16/22 11:44 Chart reviewed -- assuming care from Dr. Al; reasonable diuresis noted over the weekend; however, he still feels quite swollen at this time; renal function appears to be tolerating aggressive diuresis. Exam Narrative: General: Large WD/WN male in NAD Heart: normal S1 and S2; no rub Lungs: clear to auscultation Abdomen: soft, nontender, nondistended, positive bowel sounds Extremities: no cyanosis or clubbing; 2 - 3+ edema Skin: chronic changes noted Objective Data Vital Signs Vital Signs: Vital Signs Temp Pulse Resp BP Pulse Ox O2 Del Method 04/16/22 08:00 Room Air 04/16/22 08:48 84 04/16/22 05:33 88 94 Autopap 04/16/22 05:11 98.6 F 50 L 18 133/55 L 100 04/16/22 04:00 53 L 04/16/22 00:00 55 L 04/15/22 20:00 91 04/16/22 00:15 72 93 Autopap 04/15/22 21:30 98.2 F 78 18 129/71 92 04/15/22 21:30 68 04/15/22 16:00 53 L 04/15/22 12:00 88 04/15/22 14:00 97.2 F L 54 L 20 116/54 L 96 Intake/Output Intake/Output: Intake & Output 04/13/22 04/14/22 04/15/22 04/16/22 23:59 23:59 23:59 23:59 Intake Total 1002 2120 1860 790 Output Total 5750 6200 2200 Balance 1002 -3630 -4340 -1410 Meds/Results Medications: Active Medications Generic Name Dose Route Start Last Admin Trade Name Marcosq PRN Reason Stop Dose Admin Acetaminophen 1,000 mg 04/11/22 23:42 04/16/22 09:09 Acetaminophen 500 Mg Tablet PO 1,000 mg Q6H PRN Administration Pain
--- NOTE | 2022-04-16 11:44 | PM.PNNEP ---
Progress Note: A&P Assessment and Plan (1) JENA (acute kidney injury): Code(s): N17.9 - Acute kidney failure, unspecified Status: Acute Assessment and Plan: Multiple issues contributing to his elevated creatinine: complex hemodynamics going in his vasculature volume overload possible renal venous hypertension continue diuresis as tolerated follow repeat labs and UOP (2) Chronic kidney disease, stage 3: Code(s): N18.30 - Chronic kidney disease, stage 3 unspecified Status: Chronic Assessment and Plan: baseline creatinine runs ~ 1.4 - 1.7mg/dl this causes him to fluctuate between CKD stage 3A and stage 3B due to hypertension and chronic pre renal azotemia due to his poorly functioning heart (3) Acute on chronic congestive heart failure: Qualifiers: Heart failure type: right-sided Qualified Code(s): I50.813 - Acute on chronic right heart failure Code(s): I50.9 - Heart failure, unspecified Status: Acute Assessment and Plan: due to right sided heart failure complicated by moderate pulmonary HTN continue aggressive IV diuretic therapy (4) Obstructive sleep apnea: Code(s): G47.33 - Obstructive sleep apnea (adult) (pediatric) Status: Chronic Assessment and Plan: continue CPAP therapy reports compliance at home (5) Fall from ground level: Code(s): W18.30XA - Fall on same level, unspecified, initial encounter Status: Acute Assessment and Plan: 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 Subjective Date/time seen: 04/16/22 11:44 Chart reviewed -- assuming care from Dr. Al; reasonable diuresis noted over the weekend; however, he still feels quite swollen at this time; renal function appears to be tolerating aggressive diuresis. Exam Narrative: General: Large WD/WN male in NAD Heart: normal S1 and S2; no rub Lungs: clear to auscultation Abdomen: soft, nontender, nondistended, positive bowel sounds Extremities: no cyanosis or clubbing; 2 - 3+ edema Skin: chronic changes noted Objective Data Vital Signs Vital Signs: Vital Signs Temp Pulse Resp BP Pulse Ox O2 Del Method 04/16/22 08:00 Room Air 04/16/22 08:48 84 04/16/22 05:33 88 94 Autopap 04/16/22 05:11 98.6 F 50 L 18 133/55 L 100 04/16/22 04:00 53 L 04/16/22 00:00 55 L 04/15/22 20:00 91 04/16/22 00:15 72 93 Autopap 04/15/22 21:30 98.2 F 78 18 129/71 92 04/15/22 21:30 68 04/15/22 16:00 53 L 04/15/22 12:00 88 04/15/22 14:00 97.2 F L 54 L 20 116/54 L 96 Intake/Output Intake/Output: Intake & Output 04/13/22 04/14/22 04/15/22 04/16/22 23:59 23:59 23:59 23:59 Intake Total 1002 2120 1860 790 Output Total 5764 6200 2200 Balance 8950 -3630 -4340 -1410 Meds/Results Medications: Active Medications Generic Name Dose Route Start Last Admin Trade Name Freq PRN Reason Stop Dose Admin Acetaminophen 1,000 mg 04/11/22 23:42 04/16/22 09:09 Acetaminophen 500 Mg Tablet PO 1,000 mg Q6H PRN Administration Pain Rated 1-3 Acetazolamide 250 mg 04/12/22 09:00 04/16/22 10:21 Acetazolamide Tab 250 Mg Tablet PO 250 mg BID ANGELA Administration Apixaban 5 mg 04/12/22 09:00 04/13/22 09:23 Apixaban 5 Mg Tablet PO 5 mg Q12HR ANGELA Administration Aspirin 81 mg 04/12/22 09:00 04/16/22 08:48 Aspirin 81 Mg Enteric Tablet PO 81 mg DAILY ANGELA Administration Bumetanide 2 mg 04/14/22 09:00 04/16/22 08:52 Bumetanide Inj 2.5 Mg/10 Ml Vial IV PUSH 2 mg TID ANGELA Administration Ferrous Sulfate 324 mg 04/12/22 09:00 04/16/22 08:48 Ferrous Sulfate 324 Mg Tablet PO 324 mg DAILY ANGELA Administration Fluticasone Propionate 1 spray 04/12/22 09:00 04/16/22 08:51 Fluticasone Propionate 0.05% Na Spr 16 Gm Btl (*Bkc) NASAL 1 spray DAILY ANGELA Administration Gabapentin 300 mg 0
[2022-04-16] MEDS: metOLazone 5 MG TABLET PO (13:12)
--- NOTE | 2022-04-16 14:11 | PM.PNCARD ---
Progress Note: A&P Assessment and Plan (1) Acute on chronic congestive heart failure: Qualifiers: Heart failure type: right-sided Qualified Code(s): I50.813 - Acute on chronic right heart failure Code(s): I50.9 - Heart failure, unspecified Status: Acute Assessment and Plan: He has right-sided heart failure. His left ventricular systolic function is preserved, EF 60-65%. He also has moderate pulmonary hypertension, PASP 51 mmHg. Low sodium diet, strict I/Os, daily weights. Improved urine output response with increasing Bumex to TID and Metolazone the need to monitor renal function and electrolytes closely. Continue with Bumex 2mg IV TID for heart failure. Continue with Acetazolamide 500 mg twice daily for heart failure. Agree with addition of metolazone today. He has required intermittent hemodialysis in the past for volume removal on past admission. Stable thus far and responding to diuresis. Continue to monitor closely. We discussed circumstances which hemodialysis may require particular if renal function deteriorates and or response to diuretic fails with worsening symptomatic heart failure. We discussed pros and cons in this regard. He verbalized understanding and agrees. Appreciate Nephrology involvement and recommendations. (2) Chronic kidney disease: Code(s): N18.9 - Chronic kidney disease, unspecified Status: Acute Assessment and Plan: Minimize nephrotoxic agents. History of acute on chronic baseline stage 3 chronic kidney disease baseline creatinine is around 1.5. Monitor closely with aggressive diuresis. Daily BMP. Tolerating diuresis thus far. Continue to monitor closely on Bumex 2 mg IV t.i.d., Acetazolamide 500 mg p.o. b.i.d. electrolytes stable thus far. Continue monitor closely. (3) Atrial fibrillation: Code(s): I48.91 - Unspecified atrial fibrillation Status: Acute Assessment and Plan: Rate controlled. Continue with metoprolol 50 mg twice daily. Continue for now. Monitor for bradycardia which he is tolerating thus far. Remains on apixaban 5 mg twice daily for block stroke risk reduction with atrial fibrillation. (4) Anemia: Qualifiers: Anemia type: due to chronic kidney disease Chronic kidney disease stage: stage 3 (moderate) Chronic kidney disease stage 3 subtype: unspecified whether 3a or 3b Qualified Code(s): N18.30 - Chronic kidney disease, stage 3 unspecified; D63.1 - Anemia in chronic kidney disease Code(s): D64.9 - Anemia, unspecified Status: Acute Assessment and Plan: H&H stable. No evidence for active bleed. Continue to follow. (5) Pulmonary hypertension: Code(s): I27.20 - Pulmonary hypertension, unspecified Status: Acute Assessment and Plan: History of moderate pulmonary hypertension RVSP 51 mm Hg by echo 05/2021 continued BiPAP for AMELIA treatment.. (6) Essential (primary) hypertension: Code(s): I10 - Essential (primary) hypertension Status: Acute Assessment and Plan: BP stable somewhat labile. Continue minoxidil 10 mg daily, metoprolol 50 mg twice daily. (7) Obstructive sleep apnea: Code(s): G47.33 - Obstructive sleep apnea (adult) (pediatric) Status: Chronic Assessment and Plan: On BiPAP. Continued compliance crucial to avoid exacerbation of decompensated right-sided heart failure. (8) Fall from ground level: Code(s): W18.30XA - Fall on same level, unspecified, initial encounter Status: Acute Assessment and Plan: Per patient report, secondary to weakness. PT/OT Subjective Date/time seen: 04/16/22 14:11 Interval history: Reason for visit: Decompensated heart failure HPI: Mr. Cyr Is a 72-year-old male with a past medical history significant for morbid obesity, obstructive sleep apnea on BiPAP,? heart failure with preserved ejection fraction, atrial fibrillation, and chronic kidney disease.? ? Thi
[2022-04-16] MEDS: acetaZOLAMIDE TAB 250 MG TABLET 500 MG PO (17:25)
[2022-04-16] MEDS: SENNA/DOCUSATE SODIUM TABLET 1 TAB PO (21:03)
[2022-04-17] VITALS (12 sets, daily range): BP systolic 118–149; BP diastolic 49–72; PULSE 52–112; RESP 16–22; TEMP 36.7–37.2; O2SAT 89–98
[2022-04-17] MEDS: LEVOTHYROXINE SODIUM 100 MCG TABLET 200 MCG PO (05:40)
[2022-04-17 06:16] LABS: Basophils Absolute Auto 0.1 K/mm3 (0.0-0.1); Basophils Percent Auto 1.5 % (0.2-1.2); Eosinophils Absolute Auto 0.4 K/mm3 (0-0.3); Eosinophils Percent Auto 6.9 % (0-4.4); Hematocrit 34.8 % (42.0-52.0); Hemoglobin 9.5 g/dL (14.0-18.0); Immature Granulocyte Absolute 0.03 K/mm3 (0.00-0.031); Immature Granulocyte Percent A 0.5 % (0-0.5); Lymphocytes Absolute Auto 0.63 K/mm3 (0.9-3.2); Lymphocytes Percent Auto 10.4 % (18.3-44.2); Mean Corpuscular HGB Conc 27.3 g/dl (32-36); Mean Corpuscular Hemoglobin 23.1 pg (26-34); Mean Corpuscular Volume 84.7 fl (80-100); Mean Platelet Volume 10.7 fl (7.4-10.4); Monocytes Absolute Auto 0.8 K/mm3 (0.1-0.6); Monocytes Percent Auto 12.9 % (2.6-8.5); Neutrophils Absolute Auto 4.1 K/mm3 (1.3-6.7); Neutrophils Percent Auto 67.8 % (45.5-73.1); Platelet Count Result 260 k/mm3 (150-375); Red Blood Count 4.11 M/mm3 (4.6-6.20); Red Cell Distribution Width 16.4 % (11.5-14.5); White Blood Count 6.1 K/mm3 (4.5-10.0)
[2022-04-17 06:27] LABS: Alanine Aminotransferase 11 U/L (6-50); Alkaline Phosphatase 38 U/L (38-126); Anion Gap 4 mmol/L (8-16); Aspartate Amino Transferase 20 U/L (17-59); Bilirubin,Total 0.6 mg/dL (0.2-1.3); Blood Urea Nitrogen 30 mg/dL (9-20); Calcium 7.8 mg/dL (8.4-10.2); Carbon Dioxide 34 mmol/L (22-30); Chloride 98 mmol/L (98-107); Estimated CRCL calculation 53 ml/min; Estimated Glomerular Filt Rate 33; Glucose 93 mg/dL (65-110); Potassium 2.9 mmol/L (3.4-5.0); Sodium 136 mmol/L (137-145)
[2022-04-17 07:04] LABS: Hypochromasia 1+ (NORMAL); Microcytosis 1+ (NORMAL); Ovalocytes 1+ (NORMAL); Platelet Estimate Adequate (Adequate); Schistocytes None Seen (NORMAL)
--- NOTE | 2022-04-17 08:17 | PM.PNCARD ---
Progress Note: A&P Assessment and Plan (1) Acute on chronic congestive heart failure: Qualifiers: Heart failure type: right-sided Qualified Code(s): I50.813 - Acute on chronic right heart failure Code(s): I50.9 - Heart failure, unspecified Status: Acute Assessment and Plan: He has right-sided heart failure. His left ventricular systolic function is preserved, EF 60-65%. He also has moderate pulmonary hypertension, PASP 51 mmHg. Low sodium diet, strict I/Os, daily weights. Continues to diurese well with Bumex TID and Metolazone Continue close monitoring of renal function and electrolytes. K+ 2.9 this morning, will give an additional 40 mEq KCL this morning. Continue with Bumex 2mg IV TID for heart failure. Continue with Acetazolamide 500 mg twice daily for heart failure. Agree with addition of metolazone today. He has required intermittent hemodialysis in the past for volume removal on past admission. Stable thus far and responding to diuresis. Continue to monitor closely. (2) Chronic kidney disease: Code(s): N18.9 - Chronic kidney disease, unspecified Status: Acute Assessment and Plan: Minimize nephrotoxic agents. History of acute on chronic baseline stage 3 chronic kidney disease baseline creatinine is around 1.5. Monitor closely with aggressive diuresis. Daily BMP. Tolerating diuresis thus far. Continue to monitor closely on Bumex 2 mg IV t.i.d., Acetazolamide 500 mg p.o. b.i.d. electrolytes stable thus far. Continue monitor closely. (3) Atrial fibrillation: Code(s): I48.91 - Unspecified atrial fibrillation Status: Acute Assessment and Plan: Rate controlled. Remains on apixaban 5 mg twice daily for stroke risk reduction with atrial fibrillation. (4) Anemia: Qualifiers: Anemia type: due to chronic kidney disease Chronic kidney disease stage: stage 3 (moderate) Chronic kidney disease stage 3 subtype: unspecified whether 3a or 3b Qualified Code(s): N18.30 - Chronic kidney disease, stage 3 unspecified; D63.1 - Anemia in chronic kidney disease Code(s): D64.9 - Anemia, unspecified Status: Acute Assessment and Plan: H&H stable. No evidence for active bleed. Continue to follow. (5) Pulmonary hypertension: Code(s): I27.20 - Pulmonary hypertension, unspecified Status: Acute Assessment and Plan: History of moderate pulmonary hypertension RVSP 51 mm Hg by echo 05/2021 continued BiPAP for AMELIA treatment.. (6) Essential (primary) hypertension: Code(s): I10 - Essential (primary) hypertension Status: Acute Assessment and Plan: BP stable somewhat labile. Continue minoxidil 10 mg daily, metoprolol 50 mg twice daily. (7) Obstructive sleep apnea: Code(s): G47.33 - Obstructive sleep apnea (adult) (pediatric) Status: Chronic Assessment and Plan: On BiPAP. Continued compliance crucial to avoid exacerbation of decompensated right-sided heart failure. (8) Fall from ground level: Code(s): W18.30XA - Fall on same level, unspecified, initial encounter Status: Acute Assessment and Plan: Per patient report, secondary to weakness. PT/OT Subjective Date/time seen: 04/17/22 08:17 Cardiology follow up for CHF Continues to diurese well. He is less swollen today. Denies shortness of breath or chest pain. Review of Systems Constitutional: Constitutional: Denies chills, Denies fever(s), Denies headache(s) and Denies malaise Eyes: Eyes: Denies change in vision ENT: Reports Normal hearing present, Denies dizziness, Denies headache(s) and Denies hearing loss Cardiovascular: Cardiovascular: Denies chest pain, Denies chest pain at rest, Denies chest pain with activity, Denies syncope, Reports pedal edema, Reports leg edema, Denies palpitations, Reports dyspnea and Reports dyspnea on exertion Respiratory: Respiratory: Reports chest congestion, Denies
[2022-04-17] MEDS: POTASSIUM CHLORIDE 20 MEQ TABLET.ER 40 MEQ PO (08:39)
[2022-04-17] MEDS: LORATADINE 10 MG TABLET PO (08:40)
[2022-04-17] MEDS: acetaZOLAMIDE TAB 250 MG TABLET 500 MG PO ×2 (08:40→17:33)
[2022-04-17] MEDS: minoxidiL 10 MG TABLET PO (08:40)
[2022-04-17] MEDS: ASPIRIN 81 MG ENTERIC TABLET PO (08:40)
[2022-04-17] MEDS: PANTOPRAZOLE 40 MG TABLET PO (08:40)
[2022-04-17] MEDS: METOPROLOL TARTRATE 50 MG TAB PO ×2 (08:40→20:31)
[2022-04-17] MEDS: TAMSULOSIN HCL 0.4 MG CAPSULE PO (08:42)
[2022-04-17] MEDS: GABAPENTIN 300 MG CAPSULE PO ×3 (08:42→17:32)
[2022-04-17] MEDS: FERROUS SULFATE 324 MG TABLET PO (08:42)
[2022-04-17] MEDS: FLUTICASONE PROPIONATE 0.05% NA SPR 16 GM BTL (*BKC) 1 SPRAY NASAL (08:44)
[2022-04-17] MEDS: BUMETANIDE INJ 2.5 MG/10 ML VIAL 2 MG IV PUSH ×3 (08:44→17:31)
[2022-04-17] MEDS: metOLazone 5 MG TABLET PO (08:57)
--- NOTE | 2022-04-17 09:40 | PM.IMPN ---
Progress Note: A&P Assessment and Plan (1) Acute on chronic congestive heart failure: Qualifiers: Heart failure type: right-sided Qualified Code(s): I50.813 - Acute on chronic right heart failure Code(s): I50.9 - Heart failure, unspecified Status: Acute Assessment and Plan: Appreciate cardiology consultation, IV diuresis with good results, cont to monitor Echo EF 60-65%, moderate pulm HTN, both atria severely enlarged, right ventricle function severely reduced (2) Fall from ground level: Code(s): W18.30XA - Fall on same level, unspecified, initial encounter Status: Acute Assessment and Plan: PT/O when able (3) Chronic acquired lymphedema: Code(s): I89.0 - Lymphedema, not elsewhere classified Status: Acute Assessment and Plan: worsened from HF, improving slowly (4) Chronic kidney disease: Code(s): N18.9 - Chronic kidney disease, unspecified Status: Acute Assessment and Plan: Appreciate nephrology consultation, continue to monitor (5) Chronic anemia: Code(s): D64.9 - Anemia, unspecified Status: Acute Assessment and Plan: near baseline, 12-10, defer top nephro for further intervention (6) Obstructive sleep apnea: Code(s): G47.33 - Obstructive sleep apnea (adult) (pediatric) Status: Chronic Assessment and Plan: No signs of sleep apnea noted on the [facility] (7) Chronic anticoagulation: Code(s): 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 No chest pain or shortness of breath. No nausea, vomiting or diarrhea. No fevers or chills. Patient continues to have significant urine output. Swelling continues to improve. Review of Systems Review of Systems: 12 point review of systems was assessed and was negative except as noted in the HPI Exam Narrative: General: No acute distress, alert and oriented per baseline HEENT: Atraumatic, normocephalic, mucous membranes moist CV: Regular rate and rhythm, S1, S2 Lungs: Clear to auscultation bilaterally, no rales or crackles noted, no wheezes, good air entry Abdomen: Soft, nontender, nondistended Extremities: Pitting edema bilaterally up to thighs, reduced from yesterday, upper extremity edema seems much reduced, hand edema much improved Psych: Euthymic, normal affect Objective Data Vital Signs Vital Signs: Vital Signs - 24 hr 04/16/22 11:55 04/16/22 13:50 04/16/22 12:00 Temperature 97.4 F L Pulse Rate 54 L 54 L Respiratory Rate 16 Blood Pressure 140/59 L Pulse Oximetry 92 93 Oxygen Delivery Room Air Oxygen Flow Rate 04/16/22 16:00 04/16/22 21:03 04/16/22 20:00 Temperature Pulse Rate 72 72 108 H Respiratory Rate Blood Pressure Pulse Oximetry Oxygen Delivery Oxygen Flow Rate 04/16/22 23:20 04/16/22 23:20 04/16/22 22:00 Temperature 99.1 F Pulse Rate 77 108 H Respiratory Rate 18 Blood Pressure 122/66 Pulse Oximetry 93 93 91 Oxygen Delivery Autopap Autopap Oxygen Flow Rate 4 04/17/22 00:00 04/17/22 03:15 04/17/22 05:30 Temperature 98.1 F Pulse Rate 70 78 56 L Respiratory Rate 22 H Blood Pressure 126/49 L Pulse Oximetry 92 98 Oxygen Delivery Autopap Oxygen Flow Rate 04/17/22 04:00 04/17/22 08:40 Temperature Pulse Rate 52 L 55 L Respiratory Rate Blood Pressure Pulse Oximetry Oxygen Delivery Oxygen Flow Rate Intake/Output
[2022-04-17] MEDS: POTASSIUM CHLORIDE 20 MEQ PACKET (FOR LIQUID) 40 MEQ PO (10:26)
--- NOTE | 2022-04-17 12:03 | P.PNNP_ITS ---
Progress Note: A&P Assessment and Plan (1) JENA (acute kidney injury): Code(s): N17.9 - Acute kidney failure, unspecified Status: Acute Assessment and Plan: * Multiple issues contributing to his elevated creatinine: * complex hemodynamics going in his vasculature * volume overload * possible renal venous hypertension * continue diuresis as tolerated * follow repeat labs and UOP (2) Chronic kidney disease, stage 3: Code(s): N18.30 - Chronic kidney disease, stage 3 unspecified Status: Chronic Assessment and Plan: * baseline creatinine runs ~ 1.4 - 1.7mg/dl * this causes him to fluctuate between CKD stage 3A and stage 3B * due to hypertension and chronic pre renal azotemia due to his poorly functioning heart (3) Acute on chronic congestive heart failure: Qualifiers: Heart failure type: right-sided Qualified Code(s): I50.813 - Acute on chronic right heart failure Code(s): I50.9 - Heart failure, unspecified Status: Acute Assessment and Plan: * due to right sided heart failure complicated by moderate pulmonary HTN * continue aggressive IV diuretic therapy (4) Obstructive sleep apnea: Code(s): G47.33 - Obstructive sleep apnea (adult) (pediatric) Status: Chronic Assessment and Plan: * continue CPAP therapy * reports compliance at home (5) Fall from ground level: Code(s): W18.30XA - Fall on same level, unspecified, initial encounter Status: Acute Assessment and Plan: * 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 Subjective Date/time seen: 04/17/22 12:03 Renal function continues to tolerated aggressive IV diuresis at this time; continues to make good urine output with interventions to date; still feels s wollen but a bit better in general. Exam Narrative: General: Large WD/WN male in NAD Heart: normal S1 and S2; no rub Lungs: clear to auscultation Abdomen: soft, nontender, nondistended, positive bowel sounds Extremities: no cyanosis or clubbing; 2 - 3+ edema Skin: chronic changes noted Objective Data Vital Signs Vital Signs: Vital Signs Temp Pulse Resp BP Pulse Ox O2 Del Method O2 Flow Rate 04/17/22 08:40 55 L 04/17/22 04:00 52 L 04/17/22 05:30 98.1 F 56 L 22 H 126/49 L 98 04/17/22 03:15 78 92 Autopap 04/17/22 00:00 70 04/16/22 22:00 99.1 F 108 H 18 122/66 91 04/16/22 23:20 93 Autopap 4 04/16/22 23:20 77 93 Autopap 04/16/22 20:00 108 H 04/16/22 21:03 72 04/16/22 16:00 72 04/16/22 13:50 97.4 F L 54 L 16 140/59 L 93 Intake/Output Intake/Output: Intake & Output 04/14/22 04/15/22 04/16/22 04/17/22 23:59 23:59 23:59 23:59 Intake Total 2120 1860 1510 240 Output Total 5750 1910 6248 8501 Balance -9025 -0777 -6029 -3905 Meds/Results Medications: Active Medications Generic Name Dose Route Start Last Admin Trade Name Freq PRN Reason Stop Dose Admin Acetaminophen 1,000 mg 04/11/22 23:42 04/16/22 22:00 Acetaminophen 500 Mg Tablet PO 1,000 mg Q6H PRN Administration Pain Rated 1-3
--- NOTE | 2022-04-17 12:03 | PM.PNNEP ---
Progress Note: A&P Assessment and Plan (1) JENA (acute kidney injury): Code(s): N17.9 - Acute kidney failure, unspecified Status: Acute Assessment and Plan: Multiple issues contributing to his elevated creatinine: complex hemodynamics going in his vasculature volume overload possible renal venous hypertension continue diuresis as tolerated follow repeat labs and UOP (2) Chronic kidney disease, stage 3: Code(s): N18.30 - Chronic kidney disease, stage 3 unspecified Status: Chronic Assessment and Plan: baseline creatinine runs ~ 1.4 - 1.7mg/dl this causes him to fluctuate between CKD stage 3A and stage 3B due to hypertension and chronic pre renal azotemia due to his poorly functioning heart (3) Acute on chronic congestive heart failure: Qualifiers: Heart failure type: right-sided Qualified Code(s): I50.813 - Acute on chronic right heart failure Code(s): I50.9 - Heart failure, unspecified Status: Acute Assessment and Plan: due to right sided heart failure complicated by moderate pulmonary HTN continue aggressive IV diuretic therapy (4) Obstructive sleep apnea: Code(s): G47.33 - Obstructive sleep apnea (adult) (pediatric) Status: Chronic Assessment and Plan: continue CPAP therapy reports compliance at home (5) Fall from ground level: Code(s): W18.30XA - Fall on same level, unspecified, initial encounter Status: Acute Assessment and Plan: 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 Subjective Date/time seen: 04/17/22 12:03 Renal function continues to tolerated aggressive IV diuresis at this time; continues to make good urine output with interventions to date; still feels swollen but a bit better in general. Exam Narrative: General: Large WD/WN male in NAD Heart: normal S1 and S2; no rub Lungs: clear to auscultation Abdomen: soft, nontender, nondistended, positive bowel sounds Extremities: no cyanosis or clubbing; 2 - 3+ edema Skin: chronic changes noted Objective Data Vital Signs Vital Signs: Vital Signs Temp Pulse Resp BP Pulse Ox O2 Del Method O2 Flow Rate 04/17/22 08:40 55 L 04/17/22 04:00 52 L 04/17/22 05:30 98.1 F 56 L 22 H 126/49 L 98 04/17/22 03:15 78 92 Autopap 04/17/22 00:00 70 04/16/22 22:00 99.1 F 108 H 18 122/66 91 04/16/22 23:20 93 Autopap 4 04/16/22 23:20 77 93 Autopap 04/16/22 20:00 108 H 04/16/22 21:03 72 04/16/22 16:00 72 04/16/22 13:50 97.4 F L 54 L 16 140/59 L 93 Intake/Output Intake/Output: Intake & Output 04/14/22 04/15/22 04/16/22 04/17/22 23:59 23:59 23:59 23:59 Intake Total 2120 1860 1510 240 Output Total 5750 6437 7991 1264 Balance -8090 -1648 -4606 -8155 Meds/Results Medications: Active Medications Generic Name Dose Route Start Last Admin Trade Name Freq PRN Reason Stop Dose Admin Acetaminophen 1,000 mg 04/11/22 23:42 04/16/22 22:00 Acetaminophen 500 Mg Tablet PO 1,000 mg Q6H PRN Administration Pain Rated 1-3 Acetazolamide 500 mg 04/16/22 17:00 04/17/22 08:40 Acetazolamide Tab 250 Mg Tablet PO 500 mg BID ANGELA Administration Apixaban 5 mg 04/12/22 09:00 04/13/22 09:23 Apixaban 5 Mg Tablet PO 5 mg Q12HR ANGELA Administration Aspirin 81 mg 04/12/22 09:00 04/17/22 08:40 Aspirin 81 Mg Enteric Tablet PO 81 mg DAILY ANGELA Administration Bumetanide 2 mg 04/14/22 09:00 04/17/22 08:44 Bumetanide Inj 2.5 Mg/10 Ml Vial IV PUSH 2 mg TID ANGELA Administration Ferrous Sulfate 324 mg 04/12/22 09:00 04/17/22 08:42 Ferrous Sulfate 324 Mg Tablet PO 324 mg DAILY ANGELA Administration Fluticasone Propionate 1 spray 04/12/22 09:00 04/17/22 08:44 Fluticasone Propionate 0.05% Na Spr 16 Gm Btl (*Bkc) NASAL 1 spray DAILY ANGELA Administration Gabapentin 300 mg
--- NOTE | 2022-04-17 13:53 | PCPTNOTE ---
Patient refused treatment this session due pain and feeling SOB. Patient states SOB increases when he is in seated position.
[2022-04-17] MEDS: POTASSIUM CHLORIDE 20 MEQ TABLET 40 MEQ PO (15:39)
[2022-04-17] MEDS: SENNA/DOCUSATE SODIUM TABLET 1 TAB PO (20:31)
[2022-04-17] MEDS: ACETAMINOPHEN 500 MG TABLET 1000 MG PO (21:26)
[2022-04-18] VITALS (14 sets, daily range): BP systolic 109–140; BP diastolic 52–56; PULSE 52–103; RESP 14–18; TEMP 36.4–37.4; O2SAT 90–98
[2022-04-18 06:03] LABS: Basophils Absolute Auto 0.1 K/mm3 (0.0-0.1); Basophils Percent Auto 1.1 % (0.2-1.2); Eosinophils Absolute Auto 0.4 K/mm3 (0-0.3); Eosinophils Percent Auto 6.1 % (0-4.4); Hematocrit 35.1 % (42.0-52.0); Hemoglobin 9.4 g/dL (14.0-18.0); Immature Granulocyte Absolute 0.04 K/mm3 (0.00-0.031); Immature Granulocyte Percent A 0.6 % (0-0.5); Lymphocytes Absolute Auto 0.73 K/mm3 (0.9-3.2); Lymphocytes Percent Auto 10.1 % (18.3-44.2); Mean Corpuscular HGB Conc 26.8 g/dl (32-36); Mean Corpuscular Hemoglobin 22.8 pg (26-34); Monocytes Absolute Auto 0.9 K/mm3 (0.1-0.6); Monocytes Percent Auto 12.5 % (2.6-8.5); Neutrophils Percent Auto 69.6 % (45.5-73.1); Platelet Count Result 278 k/mm3 (150-375); Red Blood Count 4.13 M/mm3 (4.6-6.20); Red Cell Distribution Width 16.8 % (11.5-14.5); White Blood Count 7.2 K/mm3 (4.5-10.0)
[2022-04-18 06:13] LABS: Alanine Aminotransferase 11 U/L (6-50); Alkaline Phosphatase 33 U/L (38-126); Anion Gap 5 mmol/L (8-16); Aspartate Amino Transferase 26 U/L (17-59); Bilirubin,Total 0.8 mg/dL (0.2-1.3); Blood Urea Nitrogen 32 mg/dL (9-20); Calcium 7.7 mg/dL (8.4-10.2); Carbon Dioxide 35 mmol/L (22-30); Chloride 97 mmol/L (98-107); Estimated CRCL calculation 48 ml/min; Estimated Glomerular Filt Rate 29; Glucose 92 mg/dL (65-110); Potassium 3.2 mmol/L (3.4-5.0); Sodium 137 mmol/L (137-145)
[2022-04-18 08:17] LABS: Microcytosis 1+ (NORMAL); Ovalocytes 1+ (NORMAL); Platelet Estimate Adequate (Adequate); Schistocytes None Seen (NORMAL)
[2022-04-18] MEDS: BUMETANIDE INJ 2.5 MG/10 ML VIAL 2 MG IV PUSH ×3 (08:36→17:20)
[2022-04-18] MEDS: POTASSIUM CHLORIDE 20 MEQ TABLET 40 MEQ PO (08:37)
[2022-04-18] MEDS: GABAPENTIN 300 MG CAPSULE PO ×3 (08:37→17:20)
[2022-04-18] MEDS: acetaZOLAMIDE TAB 250 MG TABLET 500 MG PO ×2 (08:37→17:20)
[2022-04-18] MEDS: FERROUS SULFATE 324 MG TABLET PO (08:38)
[2022-04-18] MEDS: minoxidiL 10 MG TABLET PO (08:38)
[2022-04-18] MEDS: METOPROLOL TARTRATE 50 MG TAB PO ×2 (08:38→20:23)
[2022-04-18] MEDS: PANTOPRAZOLE 40 MG TABLET PO (08:38)
[2022-04-18] MEDS: ASPIRIN 81 MG ENTERIC TABLET PO (08:38)
[2022-04-18] MEDS: TAMSULOSIN HCL 0.4 MG CAPSULE PO (08:38)
[2022-04-18] MEDS: LORATADINE 10 MG TABLET PO (08:39)
[2022-04-18] MEDS: polyethylene glycoL 3350 17 GM POWD.PACK PO (08:40)
[2022-04-18] MEDS: FLUTICASONE PROPIONATE 0.05% NA SPR 16 GM BTL (*BKC) 1 SPRAY NASAL (08:40)
[2022-04-18] MEDS: ACETAMINOPHEN 500 MG TABLET 1000 MG PO (08:45)
[2022-04-18] MEDS: POTASSIUM CHLORIDE 20 MEQ TABLET.ER 40 MEQ PO (13:43)
--- NOTE | 2022-04-18 13:51 | PM.PNNEP ---
Progress Note: A&P Assessment and Plan (1) JENA (acute kidney injury): Code(s): N17.9 - Acute kidney failure, unspecified Status: Acute Assessment and Plan: multiple issues contributing to his elevated creatinine: complex hemodynamics going in his vasculature volume overload possible renal venous hypertension need for diuretic therapy continue diuresis as tolerated follow repeat labs and UOP (2) Chronic kidney disease, stage 3: Code(s): N18.30 - Chronic kidney disease, stage 3 unspecified Status: Chronic Assessment and Plan: baseline creatinine runs ~ 1.4 - 1.7mg/dl this causes him to fluctuate between CKD stage 3A and stage 3B due to hypertension and chronic pre renal azotemia due to his poorly functioning heart (3) Acute on chronic congestive heart failure: Qualifiers: Heart failure type: right-sided Qualified Code(s): I50.813 - Acute on chronic right heart failure Code(s): I50.9 - Heart failure, unspecified Status: Acute Assessment and Plan: due to right sided heart failure complicated by moderate pulmonary HTN continue aggressive IV diuretic therapy (4) Obstructive sleep apnea: Code(s): G47.33 - Obstructive sleep apnea (adult) (pediatric) Status: Chronic Assessment and Plan: continue CPAP therapy reports compliance at home (5) Fall from ground level: Code(s): W18.30XA - Fall on same level, unspecified, initial encounter Status: Acute Assessment and Plan: 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 Subjective Date/time seen: 04/18/22 13:51 Creatinine up a tad by AM labs but continues to have good diuresis with current therapy; noted improvement in swelling/edema but more so in his upper extremities; still feels full in legs and abdominal area; no acute distress voiced. Exam Narrative: General: Large WD/WN male in NAD Heart: normal S1 and S2; no rub Lungs: clear to auscultation Abdomen: soft, nontender, nondistended, positive bowel sounds Extremities: no cyanosis or clubbing; 2 - 3+ edema Skin: chronic changes apparent Objective Data Vital Signs Vital Signs: Vital Signs Temp Pulse Resp BP Pulse Ox O2 Del Method 04/18/22 13:00 98.4 F 53 L 18 109/52 L 97 04/18/22 08:00 62 04/18/22 08:30 Room Air 04/18/22 08:38 64 04/18/22 06:00 97.6 F 53 L 18 123/55 L 98 04/18/22 04:00 52 L 04/18/22 03:54 62 92 Autopap 04/18/22 00:00 71 04/18/22 00:17 70 90 Autopap 04/17/22 22:00 98.9 F 112 H 19 118/72 90 04/17/22 20:00 112 H 04/17/22 20:00 92 Room Air 04/17/22 20:31 86 04/17/22 16:00 74 Intake/Output Intake/Output: Intake & Output 04/15/22 04/16/22 04/17/22 04/18/22 23:59 23:59 23:59 23:59 Intake Total 1860 1510 720 462 Output Total 1809 1370 5375 1800 [facility] -4340 -3290 -4655 -1338 Meds/Results Medications: Active Medications Generic Name Dose Route Start Last Admin Trade Name Freq PRN Reason Stop Dose Admin Acetaminophen 1,000 mg 04/11/22 23:42 04/18/22 08:45 Acetaminophen 500 Mg Tablet PO 1,000 mg Q6H PRN Administration Pain Rated 1-3 Acetazolamide 500 mg 04/16/22 17:00 04/18/22 08:37 Acetazolamide Tab 250 Mg Tablet PO 500 mg BID ANGELA Administration Apixaban 5 mg 04/12/22 09:00 04/13/22 09:23 Apixaban 5 Mg Tablet PO 5 mg Q12HR ANGELA Administration Aspirin 81 mg 04/12/22 09:00 04/18/22 08:38 Aspirin 81 Mg Enteric Tablet PO 81 mg DAILY ANGELA Administration Bumetanide 2 mg 04/14/22 09:00 04/18/22 12:33 Bumetanide Inj 2.5 Mg/10 Ml Vial IV PUSH 2 mg TID ANGELA Administration Ferrous Sulfate 324 mg 04/12/22 09:00 04/18/22 08:38 Ferrous Sulfate 324 Mg Tablet PO 324 mg DAILY ANGELA Administration Fluticasone Propionate 1 spray 04/12/22 09:00 04/18/22 08:40 Fluticasone Propionate 0.
--- NOTE | 2022-04-18 13:51 | P.PNNP_ITS ---
Progress Note: A&P Assessment and Plan (1) JENA (acute kidney injury): Code(s): N17.9 - Acute kidney failure, unspecified Status: Acute Assessment and Plan: * multiple issues contributing to his elevated creatinine: * complex hemodynamics going in his vasculature * volume overload * possible renal venous hypertension * need for diuretic therapy * continue diuresis as tolerated * follow repeat labs and UOP (2) Chronic kidney disease, stage 3: Code(s): N18.30 - Chronic kidney disease, stage 3 unspecified Status: Chronic Assessment and Plan: * baseline creatinine runs ~ 1.4 - 1.7mg/dl * this causes him to fluctuate between CKD stage 3A and stage 3B * due to hypertension and chronic pre renal azotemia due to his poorly functioning heart (3) Acute on chronic congestive heart failure: Qualifiers: Heart failure type: right-sided Qualified Code(s): I50.813 - Acute on chronic right heart failure Code(s): I50.9 - Heart failure, unspecified Status: Acute Assessment and Plan: * due to right sided heart failure complicated by moderate pulmonary HTN * continue aggressive IV diuretic therapy (4) Obstructive sleep apnea: Code(s): G47.33 - Obstructive sleep apnea (adult) (pediatric) Status: Chronic Assessment and Plan: * continue CPAP therapy * reports compliance at home (5) Fall from ground level: Code(s): W18.30XA - Fall on same level, unspecified, initial encounter Status: Acute Assessment and Plan: * 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 Subjective Date/time seen: 04/18/22 13:51 Creatinine up a tad by AM labs but continues to have good diuresis with current therapy; noted improvement in swelling/edema but more so in his upper extremities; still feels full in legs and abdominal area; no acute distress voiced. Exam Narrative: General: Large WD/WN male in NAD Heart: normal S1 and S2; no rub Lungs: clear to auscultation Abdomen: soft, nontender, nondistended, positive bowel sounds Extremities: no cyanosis or clubbing; 2 - 3+ edema Skin: chronic changes apparent Objective Data Vital Signs Vital Signs: Vital Signs Temp Pulse Resp BP Pulse Ox O2 Del Method 04/18/22 13:00 98.4 F 53 L 18 109/52 L 97 04/18/22 08:00 62 04/18/22 08:30 Room Air 04/18/22 08:38 64 04/18/22 06:00 97.6 F 53 L 18 123/55 L 98 04/18/22 04:00 52 L 04/18/22 03:54 62 92 Autopap 04/18/22 00:00 71 04/18/22 00:17 70 90 Autopap 04/17/22 22:00 98.9 F 112 H 19 118/72 90 04/17/22 20:00 112 H 04/17/22 20:00 92 Room Air 04/17/22 20:31 86 04/17/22 16:00 74 Intake/Output Intake/Output: Intake & Output 04/15/22 04/16/22 04/17/22 04/18/22 23:59 23:59 23:59 23:59 Intake Total 1860 1510 720 462 Output Total 5060 4800 5311 1800 [facility] -4340 -3290 -4655 -1338 Meds/Results Medications: Active Medications Generic Name Dose Route Start Last Admin Trade Name Alanis PRN Reason Stop Dose Admin Acetaminophen 1,000 mg 04/11/22 23:42
--- NOTE | 2022-04-18 13:54 | PM.PNCARD ---
Progress Note: A&P Assessment and Plan (1) Acute on chronic congestive heart failure: Qualifiers: Heart failure type: right-sided Qualified Code(s): I50.813 - Acute on chronic right heart failure Code(s): I50.9 - Heart failure, unspecified Status: Acute Assessment and Plan: Acute on chronic right heart failure with preserved left ventricular systolic function, EF 60-65%. He also has moderate pulmonary hypertension, PASP 51 mmHg. Low sodium diet, strict I/Os, daily weights. He is 15.6 L negative to date but has a great deal of excess body volume remaining. Continue close monitoring of renal function and electrolytes. Delicate balance with regards to diuresis and maintenance renal function. He is hypokalemic this morning K+ 3.2 additional 40 mEq KCL ordered. BUN and creatinine slightly increased but urine output remains stable. He remains of significantly volume overloaded and in decompensated right heart failure. Continue Bumex 2mg IV TID for heart failure. Continue with Acetazolamide 500 mg twice daily for heart failure. Metolazone p.r.n. (2) Chronic kidney disease: Code(s): N18.9 - Chronic kidney disease, unspecified Status: Acute Assessment and Plan: Minimize nephrotoxic agents. History of acute on chronic baseline stage 3 chronic kidney disease baseline creatinine is around 1.5. Monitor closely with aggressive diuresis. Daily BMP. Tolerating diuresis thus far. Continue to monitor closely on Bumex 2 mg IV t.i.d., Acetazolamide 500 mg p.o. b.i.d. electrolytes stable thus far. Continue monitor closely. No indication for hemodialysis at this time. BUN and creatinine starting to rise to will need to monitor but will continue with current therapy for today. Renal function may ultimately limited desire degree of diuresis. Continue close observation. (3) Atrial fibrillation: Qualifiers: Atrial fibrillation type: longstanding persistent Qualified Code(s): I48.11 - Longstanding persistent atrial fibrillation Code(s): I48.91 - Unspecified atrial fibrillation Status: Acute Assessment and Plan: Heart rate controlled. Remains on apixaban 5 mg twice daily for stroke risk reduction with atrial fibrillation. May discontinue telemetry in a.m. if electrolytes replete. Continue metoprolol 50 mg twice daily for heart rate control. (4) Obstructive sleep apnea: Code(s): G47.33 - Obstructive sleep apnea (adult) (pediatric) Status: Chronic Assessment and Plan: On BiPAP. Continued compliance crucial to avoid exacerbation of decompensated right-sided heart failure. Patient notes his BiPAP machine indicated it is approaching end of service. He states he contacted the company and was informed he needs an order for a new machine. (5) Pulmonary hypertension: Code(s): I27.20 - Pulmonary hypertension, unspecified Status: Acute Assessment and Plan: History of moderate pulmonary hypertension RVSP 51 mm Hg by echo 05/2021 continued BiPAP for AMELIA treatment. (6) Essential (primary) hypertension: Code(s): I10 - Essential (primary) hypertension Status: Acute Assessment and Plan: BP stable somewhat labile. Continue minoxidil 10 mg daily, metoprolol 50 mg twice daily. (7) Anemia: Qualifiers: Anemia type: due to chronic kidney disease Chronic kidney disease stage: stage 3 (moderate) Chronic kidney disease stage 3 subtype: unspecified whether 3a or 3b Qualified Code(s): N18.30 - Chronic kidney disease, stage 3 unspecified; D63.1 - Anemia in chronic kidney disease Code(s): D64.9 - Anemia, unspecified Status: Acute Assessment and Plan: H&H stable. No evidence for active bleed. Continue to follow. (8) Fall from ground level: Code(s): W18.30XA - Fall on same level, unspecified, initial encounter Status: Acute Assessment and Plan: Per patient report, seconda
--- NOTE | 2022-04-18 18:08 | PM.IMPN ---
Progress Note: A&P Assessment and Plan (1) Acute on chronic congestive heart failure: Qualifiers: Heart failure type: right-sided Qualified Code(s): I50.813 - Acute on chronic right heart failure Code(s): I50.9 - Heart failure, unspecified Status: Acute Assessment and Plan: Echo EF 60-65%, moderate pulm HTN, both atria severely enlarged, right ventricle function severely reduced Appreciate cardiology consultation IV diuresis with good results with Bumex, cont to monitor (2) Fall from ground level: Code(s): W18.30XA - Fall on same level, unspecified, initial encounter Status: Acute Assessment and Plan: Continue PT/OT (3) Chronic acquired lymphedema: Code(s): I89.0 - Lymphedema, not elsewhere classified Status: Acute Assessment and Plan: worsened from HF and improving slowly with diuresis (4) Chronic kidney disease: Code(s): N18.9 - Chronic kidney disease, unspecified Status: Acute Assessment and Plan: Cr has zee stable in the 2.0 range but up slightly. Patient is not at dry weight however. Appreciate nephrology consultation Continue to monitor. Contineu Bumex IV (5) Chronic anemia: Code(s): D64.9 - Anemia, unspecified Status: Acute Assessment and Plan: Baseline Hgb 9-11 At baseline currently. Probably related to CKD Follow (6) Obstructive sleep apnea: Code(s): G47.33 - Obstructive sleep apnea (adult) (pediatric) Status: Chronic Assessment and Plan: No signs of hypoxia noted on the [facility]nea[facility] when the test was done with home unit in place and on 4L. Patient is compliant with BiPAP. Continue the same here. (7) Atrial fibrillation: Qualifiers: Atrial fibrillation type: longstanding persistent Qualified Code(s): I48.11 - Longstanding persistent atrial fibrillation Code(s): I48.91 - Unspecified atrial fibrillation Status: Acute Assessment and Plan: EKG showing chronic AFib. Patient's rate controlled. Continue Eliquis. Continue metoprolol for rate control. Plan DVT prophylaxis with Eliquis, continue Eliquis for now, will need to be held of HD catheter needs to be placed Code status full code Subjective Date/time seen: 04/18/22 18:08 Interval history: 72yo male with CHF, AFib, lymphedema and CKD here for fall and found to have CHF exacerbation. Assuming care. Chart reviewed. Patient feels the legs are less tight. He still feels edematous however. Eating normally. No chest pain. No significant dyspnea at rest Exam Narrative: Gen - NARD sitting up feeding himself dinner. Chest - Decreased breath sounds in the right lung flank. Inspiratory crackles in the left flank. Clear anteriorly. CV - Irregularly irregular. S1-S2. Abd - Soft. Obese. Flank edema. Ext - Bilateral severe lymphedema. Psych - Nml mood and affect Skin - Chronic venous stasis skin changes bilateral lower extremities. Objective Data Vital Signs Vital Signs: Vital Signs - 24 hr 04/17/22 20:31 04/17/22 20:00 04/17/22 20:00 Temperature Pulse Rate 86 112 H Respiratory Rate Blood Pressure Pulse Oximetry 92 Oxygen Delivery Room Air 04/17/22 22:00 04/18/22 00:17 04/18/22 00:00 Temperature 98.9 F Pulse Rate 112 H 70 71 Respiratory Rate 19 Blood Pressure 118/72 Pulse Oximetry 90 90 Oxygen Delivery Autopap 04/18/22 03:54 04/18/22 04:00 04/18/22 06:00 Temperature 97.6 F Pulse Rate 62 52 L 53 L Respiratory Rate 18 Blood Pressure 123/55 L Pulse Oximetry 92 98 Oxygen Delivery Autopap 04/18/22 08:38 04/18/22 08:30 04/18/22 08:00 Temperature Pulse Rate 64 62 Respiratory Rate Blood Pressure Pulse Oximetry Oxygen Delivery Room Air 04/18/22 14:00 04/18/22 12:00 04/18/22 16:00 Temperature 98.4 F Pulse Rate 53 L 53 L 72 Respiratory Rate 18 Blood Pressure
[2022-04-18] MEDS: SENNA/DOCUSATE SODIUM TABLET 1 TAB PO (20:23)
[2022-04-18] MEDS: WATER FOR IRRIGATION, STERILE 1,000 ML BOTTLE 1000 ML (22:29)
[2022-04-19] VITALS (11 sets, daily range): BP systolic 109–136; BP diastolic 42–54; PULSE 53–103; RESP 14–20; TEMP 36.1–37.8; O2SAT 93–94
[2022-04-19 06:18] LABS: Basophils Absolute Auto 0.1 K/mm3 (0.0-0.1); Basophils Percent Auto 1.5 % (0.2-1.2); Eosinophils Absolute Auto 0.5 K/mm3 (0-0.3); Eosinophils Percent Auto 8.3 % (0-4.4); Hematocrit 36.8 % (42.0-52.0); Hemoglobin 9.9 g/dL (14.0-18.0); Immature Granulocyte Absolute 0.02 K/mm3 (0.00-0.031); Immature Granulocyte Percent A 0.3 % (0-0.5); Lymphocytes Absolute Auto 0.65 K/mm3 (0.9-3.2); Lymphocytes Percent Auto 10.5 % (18.3-44.2); Mean Corpuscular HGB Conc 26.9 g/dl (32-36); Mean Corpuscular Hemoglobin 22.9 pg (26-34); Mean Platelet Volume 11.4 fl (7.4-10.4); Monocytes Absolute Auto 0.7 K/mm3 (0.1-0.6); Neutrophils Absolute Auto 4.2 K/mm3 (1.3-6.7); Neutrophils Percent Auto 67.4 % (45.5-73.1); Platelet Count Result 269 k/mm3 (150-375); Red Blood Count 4.33 M/mm3 (4.6-6.20); Red Cell Distribution Width 16.8 % (11.5-14.5); White Blood Count 6.2 K/mm3 (4.5-10.0)
[2022-04-19 06:37] LABS: Alanine Aminotransferase 11 U/L (6-50); Albumin Level 3.2 g/dL (3.5-5.1); Alkaline Phosphatase 43 U/L (38-126); Anion Gap 5 mmol/L (8-16); Aspartate Amino Transferase 24 U/L (17-59); Bilirubin,Total 0.7 mg/dL (0.2-1.3); Blood Urea Nitrogen 33 mg/dL (9-20); Calcium 7.9 mg/dL (8.4-10.2); Carbon Dioxide 39 mmol/L (22-30); Chloride 94 mmol/L (98-107); Estimated CRCL calculation 44 ml/min; Estimated Glomerular Filt Rate 28; Glucose 95 mg/dL (65-110); Magnesium 2.6 mg/dL (1.6-2.3); Potassium 3.4 mmol/L (3.4-5.0); Sodium 138 mmol/L (137-145)
[2022-04-19] MEDS: LEVOTHYROXINE SODIUM 100 MCG TABLET 200 MCG PO (06:56)
[2022-04-19 07:03] LABS: Anisocytosis 1+ (NORMAL); Hypochromasia 2+ (NORMAL); Ovalocytes 1+ (NORMAL); Platelet Estimate Adequate (Adequate); Schistocytes None Seen (NORMAL)
[2022-04-19] MEDS: ASPIRIN 81 MG ENTERIC TABLET PO (08:15)
[2022-04-19] MEDS: FERROUS SULFATE 324 MG TABLET PO (08:15)
[2022-04-19] MEDS: BUMETANIDE INJ 2.5 MG/10 ML VIAL 2 MG IV PUSH ×3 (08:16→17:17)
[2022-04-19] MEDS: LORATADINE 10 MG TABLET PO (08:16)
[2022-04-19] MEDS: GABAPENTIN 300 MG CAPSULE PO ×3 (08:16→17:17)
[2022-04-19] MEDS: minoxidiL 10 MG TABLET PO (08:16)
[2022-04-19] MEDS: acetaZOLAMIDE TAB 250 MG TABLET 500 MG PO ×2 (08:16→17:17)
[2022-04-19] MEDS: POTASSIUM CHLORIDE 20 MEQ TABLET.ER 40 MEQ PO (08:16)
[2022-04-19] MEDS: METOPROLOL TARTRATE 50 MG TAB PO ×2 (08:16→20:24)
[2022-04-19] MEDS: TAMSULOSIN HCL 0.4 MG CAPSULE PO (08:16)
[2022-04-19] MEDS: PANTOPRAZOLE 40 MG TABLET PO (08:16)
[2022-04-19] MEDS: PSYLLIUM POWDER PACKET 1 PACKET PO (08:17)
[2022-04-19] MEDS: FLUTICASONE PROPIONATE 0.05% NA SPR 16 GM BTL (*BKC) 1 SPRAY NASAL (08:17)
[2022-04-19] MEDS: ACETAMINOPHEN 500 MG TABLET 1000 MG PO ×2 (08:21→20:50)
[2022-04-19] MEDS: APIXABAN 5 MG TABLET PO ×2 (09:10→20:24)
--- NOTE | 2022-04-19 09:55 | PM.PNCARD ---
Progress Note: A&P Assessment and Plan (1) Acute on chronic congestive heart failure: Qualifiers: Heart failure type: right-sided Qualified Code(s): I50.813 - Acute on chronic right heart failure <SAGAR Whitney - Last Filed: 04/19/22 11:32> Code(s): I50.9 - Heart failure, unspecified <SAGAR Whitney - Last Filed: 04/19/22 11:32> Status: Acute <SAGAR Whitney - Last Filed: 04/19/22 11:32> Assessment and Plan: Acute on chronic right heart failure with preserved left ventricular systolic function, EF 60-65%. He also has moderate pulmonary hypertension, PASP 51 mmHg. Low sodium diet, strict I/Os, daily weights. Fluid balance nearly 20L negative Continue close monitoring of renal function and electrolytes. Delicate balance with regards to diuresis and maintenance renal function. Electrolytes, BUN/Cr remain stable today He remains of significantly volume overloaded and in decompensated right heart failure. Continue Bumex 2mg IV TID for heart failure. Continue with Acetazolamide 500 mg twice daily for heart failure. Metolazone p.r.n. <SAGAR Whitney - Last Filed: 04/19/22 11:32> (2) Chronic kidney disease: Code(s): N18.9 - Chronic kidney disease, unspecified <SAGAR Whitney - Last Filed: 04/19/22 11:32> Status: Acute <SAGAR Whitney - Last Filed: 04/19/22 11:32> Assessment and Plan: Minimize nephrotoxic agents. History of acute on chronic baseline stage 3 chronic kidney disease baseline creatinine is around 1.5. Monitor closely with aggressive diuresis. Daily BMP. Tolerating diuresis thus far. <SAGAR Whitney - Last Filed: 04/19/22 11:32> (3) Atrial fibrillation: Qualifiers: Atrial fibrillation type: longstanding persistent Qualified Code(s): I48.11 - Longstanding persistent atrial fibrillation <SAGAR Whitney - Last Filed: 04/19/22 11:32> Code(s): I48.91 - Unspecified atrial fibrillation <SAGAR Whitney - Last Filed: 04/19/22 11:32> Status: Acute <SAGAR Whitney - Last Filed: 04/19/22 11:32> Assessment and Plan: Heart rate controlled. Remains on apixaban 5 mg twice daily for stroke risk reduction with atrial fibrillation. Continue metoprolol 50 mg twice daily for heart rate control. OK to d/c tele <SAGAR Whitney - Last Filed: 04/19/22 11:32> (4) Obstructive sleep apnea: Code(s): G47.33 - Obstructive sleep apnea (adult) (pediatric) <SAGAR Whitney - Last Filed: 04/19/22 11:32> Status: Chronic <SAGAR Whitney - Last Filed: 04/19/22 11:32> Assessment and Plan: Encouraged complaince with BiPAP <SAGAR Whitney - Last Filed: 04/19/22 11:32> (5) Pulmonary hypertension: Code(s): I27.20 - Pulmonary hypertension, unspecified <SAGAR Whitney - Last Filed: 04/19/22 11:32> Status: Acute <SAGAR Whitney - Last Filed: 04/19/22 11:32> Assessment and Plan: History of moderate pulmonary hypertension RVSP 51 mm Hg by echo 05/2021 continued BiPAP for AMELIA treatment. <SAGAR Whitney - Last Filed: 04/19/22 11:32> (6) Essential (primary) hypertension: Code(s): I10 - Essential (primary) hypertension <SAGAR Whitney - Last Filed: 04/19/22 11:32> Status: Acute <SAGAR Whitney - Last Filed: 04/19/22 11:32> Assessment and Plan: BP stable somewhat labile. Continue minoxidil 10 mg daily, metoprolol 50 mg twice daily. <SAGAR Whitney - Last Filed: 04/19/22 11:32> (7) Anemia: Qualifiers: Anemia type: due to chronic kidney disease Chronic kidney disease stage: stage 3 (moderate) Chronic kidney disease stage 3 subtype: unspecified whether 3a or 3b Qualified Code(s): N18.30 - Chronic kidney disease, stage 3 unspecified; D63.1 - Anemia in chronic kidney disease <Jennifer A
--- NOTE | 2022-04-19 11:36 | PCNWS ---
Weekly nutritional screen. Patient is tolerating current 2gm NA diet with adequate intake at 75-100%. No weight loss reported. No nutritional needs at this time.
--- NOTE | 2022-04-19 13:16 | P.PNNP_ITS ---
Progress Note: A&P Assessment and Plan (1) JENA (acute kidney injury): Code(s): N17.9 - Acute kidney failure, unspecified Status: Acute Assessment and Plan: * fluctuating as noted... * multiple issues contributing to his elevated creatinine: * complex hemodynamics related to his vasculature * volume overload * possible renal venous hypertension * need for diuretic therapy * continue diuresis as tolerated * follow repeat labs and UOP (2) Chronic kidney disease, stage 3: Code(s): N18.30 - Chronic kidney disease, stage 3 unspecified Status: Chronic Assessment and Plan: * baseline creatinine runs ~ 1.4 - 1.7mg/dl * this causes him to fluctuate between CKD stage 3A and stage 3B * due to hypertension and chronic pre renal azotemia due to his poorly functioning heart (3) Acute on chronic congestive heart failure: Qualifiers: Heart failure type: right-sided Qualified Code(s): I50.813 - Acute on chronic right heart failure Code(s): I50.9 - Heart failure, unspecified Status: Acute Assessment and Plan: * due to right sided heart failure complicated by moderate pulmonary HTN * continue aggressive IV diuretic therapy * almost 20L negative since admission(!) (4) Obstructive sleep apnea: Code(s): G47.33 - Obstructive sleep apnea (adult) (pediatric) Status: Chronic Assessment and Plan: * continue CPAP therapy * reports compliance at home (5) Fall from ground level: Code(s): W18.30XA - Fall on same level, unspecified, initial encounter Status: Acute Assessment and Plan: * 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 Subjective Date/time seen: 04/19/22 13:16 Continues to make slow and stady improvement; continues to have fairly good diuresis with current therapy; no apparent distress voiced at the time of my visit; creatinine a tad up and K+ replaced earlier this morning. Exam Narrative: General: Large WD/WN male in NAD Heart: normal S1 and S2; no rub Lungs: clear to auscultation Abdomen: soft, nontender, nondistended, positive bowel sounds Extremities: no cyanosis or clubbing; 2 - 3+ edema Skin: chronic changes apparent Objective Data Vital Signs Vital Signs: Vital Signs Temp Pulse Resp BP Pulse Ox O2 Del Method 04/19/22 12:00 54 L 04/19/22 08:00 54 L 04/19/22 08:16 57 L 04/19/22 05:59 97.0 F L 57 L 14 136/53 L 94 04/19/22 04:00 56 L 04/19/22 00:00 70 04/18/22 23:29 69 95 Autopap 04/18/22 20:00 Room Air 04/18/22 20:00 78 04/18/22 21:55 99.4 F 103 H 14 140/56 L 92 04/18/22 20:23 76 04/18/22 16:00 72 04/18/22 14:00 98.4 F 53 L 18 109/52 L 97 Intake/Output Intake/Output: Intake & Output 04/16/22 04/17/22 04/18/22 04/19/22 23:59 23:59 23:59 23:59 Intake Total 2185 071 0925 630 Output Total 6130 5330 5549 1600 [facility] -[phone] [phone] Meds/Results Medications: Active Medications Generic Name Dose Route Start Last Admin Trade Name Freq PRN Reason Stop Dose Admin Acetaminophen 1,000 mg 04/11/22 23:42 0
--- NOTE | 2022-04-19 13:16 | PM.PNNEP ---
Progress Note: A&P Assessment and Plan (1) JENA (acute kidney injury): Code(s): N17.9 - Acute kidney failure, unspecified Status: Acute Assessment and Plan: fluctuating as noted... multiple issues contributing to his elevated creatinine: complex hemodynamics related to his vasculature volume overload possible renal venous hypertension need for diuretic therapy continue diuresis as tolerated follow repeat labs and UOP (2) Chronic kidney disease, stage 3: Code(s): N18.30 - Chronic kidney disease, stage 3 unspecified Status: Chronic Assessment and Plan: baseline creatinine runs ~ 1.4 - 1.7mg/dl this causes him to fluctuate between CKD stage 3A and stage 3B due to hypertension and chronic pre renal azotemia due to his poorly functioning heart (3) Acute on chronic congestive heart failure: Qualifiers: Heart failure type: right-sided Qualified Code(s): I50.813 - Acute on chronic right heart failure Code(s): I50.9 - Heart failure, unspecified Status: Acute Assessment and Plan: due to right sided heart failure complicated by moderate pulmonary HTN continue aggressive IV diuretic therapy almost 20L negative since admission(!) (4) Obstructive sleep apnea: Code(s): G47.33 - Obstructive sleep apnea (adult) (pediatric) Status: Chronic Assessment and Plan: continue CPAP therapy reports compliance at home (5) Fall from ground level: Code(s): W18.30XA - Fall on same level, unspecified, initial encounter Status: Acute Assessment and Plan: 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 Subjective Date/time seen: 04/19/22 13:16 Continues to make slow and stady improvement; continues to have fairly good diuresis with current therapy; no apparent distress voiced at the time of my visit; creatinine a tad up and K+ replaced earlier this morning. Exam Narrative: General: Large WD/WN male in NAD Heart: normal S1 and S2; no rub Lungs: clear to auscultation Abdomen: soft, nontender, nondistended, positive bowel sounds Extremities: no cyanosis or clubbing; 2 - 3+ edema Skin: chronic changes apparent Objective Data Vital Signs Vital Signs: Vital Signs Temp Pulse Resp BP Pulse Ox O2 Del Method 04/19/22 12:00 54 L 04/19/22 08:00 54 L 04/19/22 08:16 57 L 04/19/22 05:59 97.0 F L 57 L 14 136/53 L 94 04/19/22 04:00 56 L 04/19/22 00:00 70 04/18/22 23:29 69 95 Autopap 04/18/22 20:00 Room Air 04/18/22 20:00 78 04/18/22 21:55 99.4 F 103 H 14 140/56 L 92 04/18/22 20:23 76 04/18/22 16:00 72 04/18/22 14:00 98.4 F 53 L 18 109/52 L 97 Intake/Output Intake/Output: Intake & Output 04/16/22 04/17/22 04/18/22 04/19/22 23:59 23:59 23:59 23:59 Intake Total 4538 614 7232 630 Output Total 9810 5375 5575 1600 [facility] -[phone] [phone] Meds/Results Medications: Active Medications Generic Name Dose Route Start Last Admin Trade Name Freq PRN Reason Stop Dose Admin Acetaminophen 1,000 mg 04/11/22 23:42 04/19/22 08:21 Acetaminophen 500 Mg Tablet PO 1,000 mg Q6H PRN Administration Pain Rated 1-3 Acetazolamide 500 mg 04/16/22 17:00 04/19/22 08:16 Acetazolamide Tab 250 Mg Tablet PO 500 mg BID ANGELA Administration Apixaban 5 mg 04/12/22 09:00 04/19/22 09:10 Apixaban 5 Mg Tablet PO 5 mg Q12HR ANGELA Administration Aspirin 81 mg 04/12/22 09:00 04/19/22 08:15 Aspirin 81 Mg Enteric Tablet PO 81 mg DAILY ANGELA Administration Bumetanide 2 mg 04/14/22 09:00 04/19/22 12:13 Bumetanide Inj 2.5 Mg/10 Ml Vial IV PUSH 2 mg TID ANGELA Administration Ferrous Sulfate 324 mg 04/12/22 09:00 04/19/22 08:15 Ferrous Sulfate 324 Mg Tablet PO 324 mg DAILY ANGELA Administration Fluticasone Propionate 1 spray 04/12/22 09:00 04/19/22 08:17 Fluticasone Pr
--- NOTE | 2022-04-19 14:10 | PM.IMPN ---
Progress Note: A&P Assessment and Plan (1) Acute on chronic congestive heart failure: Qualifiers: Heart failure type: right-sided Qualified Code(s): I50.813 - Acute on chronic right heart failure Code(s): I50.9 - Heart failure, unspecified Status: Acute Assessment and Plan: Echo EF 60-65%, moderate pulm HTN, both atria severely enlarged, right ventricle function severely reduced. BNP 5560. Appreciate cardiology consultation IV diuresis with good results with Bumex. Monitoring potential concerns for JENA and so far is remaining stable. Cont to monitor with serial labs (2) Fall from ground level: Code(s): W18.30XA - Fall on same level, unspecified, initial encounter Status: Acute Assessment and Plan: Slid down landing on his buttocks. No head injury. Continue PT/OT (3) Chronic acquired lymphedema: Code(s): I89.0 - Lymphedema, not elsewhere classified Status: Acute Assessment and Plan: Worsened from CHF and improving slowly with diuresis. (4) Chronic kidney disease: Code(s): N18.9 - Chronic kidney disease, unspecified Status: Acute Assessment and Plan: Cr has zee stable in the 2.0 range but up slightly to 2.3. Patient is not at dry weight however. Appreciate nephrology consultation Continue to monitor. Continue Bumex IV (5) Chronic anemia: Code(s): D64.9 - Anemia, unspecified Status: Acute Assessment and Plan: Baseline Hgb 9-11 At baseline currently at 10 Chronic anemia probably related to CKD Follow (6) Obstructive sleep apnea: Code(s): G47.33 - Obstructive sleep apnea (adult) (pediatric) Status: Chronic Assessment and Plan: No signs of hypoxia noted on the ApneaLink when the test was done with home unit in place and on 4L. Patient is compliant with BiPAP. Continue the same here. (7) Atrial fibrillation: Qualifiers: Atrial fibrillation type: longstanding persistent Qualified Code(s): I48.11 - Longstanding persistent atrial fibrillation Code(s): I48.91 - Unspecified atrial fibrillation Status: Acute Assessment and Plan: EKG showing chronic AFib. Patient's rate controlled. Continue Eliquis. Continue metoprolol for rate control. Plan DVT prophylaxis with Eliquis Code status full code Subjective Date/time seen: 04/19/22 14:10 Interval history: 72yo male with CHF, AFib, lymphedema and CKD here for fall and found to have CHF exacerbation. patient is feeling well. No problems overnight. He feels achy in the chest but this is chronic and occurs daily. He has spoke with tool designer apprentice about this in the past. No orthopnea Exam Narrative: Gen - NARD lying almost flat in bed Chest - lungs are clear anteriorly in the flanks. CV - Irregularly irregular. S1-S2. Abd - Soft. Obese. Positive bowel sounds Ext - Bilateral severe lymphedema. Psych - Nml mood and affect Skin - Chronic venous stasis skin changes bilateral lower extremities. wrinkling noted in bilateral lower extremities. Objective Data Vital Signs Vital Signs: Vital Signs - 24 hr 04/18/22 16:00 04/18/22 20:23 04/18/22 21:55 Temperature 99.4 F Pulse Rate 72 76 103 H Respiratory Rate 14 Blood Pressure 140/56 L Pulse Oximetry 92 Oxygen Delivery 04/18/22 20:00 04/18/22 20:00 04/18/22 23:29 Temperature Pulse Rate 78 69 Respiratory Rate Blood Pressure Pulse Oximetry 95 Oxygen Delivery Room Air Autopap 04/19/22 00:00 04/19/22 04:00 04/19/22 05:59 Temperature 97.0 F L Pulse Rate 70 56 L 57 L Respiratory Rate 14 Blood Pressure 136/53 L Pulse Oximetry 94 Oxygen Delivery 04/19/22 08:16 04/19/22 08:00 04/19/22 12:00 Temperature Pulse Rate 57 L 54 L 54 L Respiratory Rate Blood Pressure Pulse Oximetry Oxygen Delivery Intake/Output Intake/Output: Intake & Output 04/16
[2022-04-19 16:15] LABS: Chloride Rand Ur 48 mmol/L (32-290); Chloride/Creatinine Rand Ur 533 (23-275); Creatinine Random Urine 9 mg/dL (20-320)
[2022-04-19] MEDS: SENNA/DOCUSATE SODIUM TABLET 1 TAB PO (20:25)
[2022-04-19] MEDS: EUCERIN CREAM 454 GM JAR 1 APPLIC TOPICAL (20:25)
[2022-04-19] MEDS: polyethylene glycoL 3350 17 GM POWD.PACK PO (20:33)
[2022-04-20] VITALS (16 sets, daily range): BP systolic 114–130; BP diastolic 50–63; PULSE 59–107; RESP 14–20; TEMP 36.3–36.7; O2SAT 91–99
[2022-04-20] MEDS: LEVOTHYROXINE SODIUM 100 MCG TABLET 200 MCG PO (06:08)
[2022-04-20 06:48] LABS: Basophils Absolute Auto 0.1 K/mm3 (0.0-0.1); Basophils Percent Auto 1.6 % (0.2-1.2); Eosinophils Absolute Auto 0.6 K/mm3 (0-0.3); Hematocrit 36.3 % (42.0-52.0); Hemoglobin 9.6 g/dL (14.0-18.0); Immature Granulocyte Absolute 0.03 K/mm3 (0.00-0.031); Immature Granulocyte Percent A 0.4 % (0-0.5); Lymphocytes Absolute Auto 0.64 K/mm3 (0.9-3.2); Lymphocytes Percent Auto 9.3 % (18.3-44.2); Mean Corpuscular HGB Conc 26.4 g/dl (32-36); Mean Corpuscular Hemoglobin 22.9 pg (26-34); Mean Corpuscular Volume 86.4 fl (80-100); Mean Platelet Volume 11.3 fl (7.4-10.4); Monocytes Absolute Auto 0.8 K/mm3 (0.1-0.6); Neutrophils Absolute Auto 4.7 K/mm3 (1.3-6.7); Neutrophils Percent Auto 68.7 % (45.5-73.1); Platelet Count Result 262 k/mm3 (150-375); White Blood Count 6.9 K/mm3 (4.5-10.0)
[2022-04-20 07:18] LABS: Alanine Aminotransferase 12 U/L (6-50); Albumin Level 3.1 g/dL (3.5-5.1); Alkaline Phosphatase 43 U/L (38-126); Anion Gap 5 mmol/L (8-16); Aspartate Amino Transferase 21 U/L (17-59); Bilirubin,Total 0.8 mg/dL (0.2-1.3); Blood Urea Nitrogen 34 mg/dL (9-20); Calcium 7.8 mg/dL (8.4-10.2); Carbon Dioxide 38 mmol/L (22-30); Chloride 95 mmol/L (98-107); Estimated CRCL calculation 44 ml/min; Estimated Glomerular Filt Rate 28; Glucose 99 mg/dL (65-110); Potassium 2.7 mmol/L (3.4-5.0); Sodium 138 mmol/L (137-145)
[2022-04-20 07:39] LABS: Hypochromasia 1+ (NORMAL); Platelet Estimate Adequate (Adequate)
[2022-04-20 07:40] LABS: Ovalocytes 1+ (NORMAL); Schistocytes None Seen (NORMAL)
[2022-04-20] MEDS: GABAPENTIN 300 MG CAPSULE PO ×3 (08:31→16:46)
[2022-04-20] MEDS: FERROUS SULFATE 324 MG TABLET PO (08:31)
[2022-04-20] MEDS: APIXABAN 5 MG TABLET PO ×2 (08:31→20:59)
[2022-04-20] MEDS: ASPIRIN 81 MG ENTERIC TABLET PO (08:31)
[2022-04-20] MEDS: acetaZOLAMIDE TAB 250 MG TABLET 500 MG PO ×2 (08:32→16:45)
[2022-04-20] MEDS: PANTOPRAZOLE 40 MG TABLET PO (08:33)
[2022-04-20] MEDS: minoxidiL 10 MG TABLET PO (08:33)
[2022-04-20] MEDS: METOPROLOL TARTRATE 50 MG TAB PO ×2 (08:33→21:01)
[2022-04-20] MEDS: TAMSULOSIN HCL 0.4 MG CAPSULE PO (08:33)
[2022-04-20] MEDS: POTASSIUM CHLORIDE 20 MEQ TABLET.ER 40 MEQ PO (08:34)
[2022-04-20] MEDS: BUMETANIDE INJ 2.5 MG/10 ML VIAL 2 MG IV PUSH ×3 (08:35→16:46)
[2022-04-20] MEDS: polyethylene glycoL 3350 17 GM POWD.PACK PO (08:40)
[2022-04-20] MEDS: FLUTICASONE PROPIONATE 0.05% NA SPR 16 GM BTL (*BKC) 1 SPRAY NASAL (08:44)
[2022-04-20] MEDS: EUCERIN CREAM 454 GM JAR 1 APPLIC TOPICAL ×2 (08:44→21:02)
[2022-04-20] MEDS: LORATADINE 10 MG TABLET PO (10:18)
[2022-04-20] MEDS: POTASSIUM CHLORIDE 20 MEQ TABLET 40 MEQ PO (10:18)
--- NOTE | 2022-04-20 10:44 | PM.IMPN ---
Progress Note: A&P Assessment and Plan (1) Fever: Code(s): R50.9 - Fever, unspecified Status: Acute Assessment and Plan: Patient with low grade fever. May be atelectasis but currently having worsening abd pain today. WBC normal. LFTs okay. Does have dry cough as well. Has been resumed on his Eliquis but was off of this for 6 days. Check CXR. Check COVID and influenza swab. Will check lipase. Will check CRP. Check UA. Hold on BCx. Hold on abx. Check doppler. Review of results. Potassium better at 3.4. Mag 2.7. Lipase 164 and CRP 1.0 which is normal. LE venous doppler negative for DVT. CXR reviewed personally and the lung wolf are clear without infiltrate (radiology concurs). UA clear. CT A/P results reviewed personally showing bilateral pleural effusions and mild splenomegatly (radiology concurs) but no clear etiology of his abdominal pain or fever. Continue to follow. Continue to hold on starting abx. (2) Acute on chronic congestive heart failure: Qualifiers: Heart failure type: right-sided Qualified Code(s): I50.813 - Acute on chronic right heart failure Code(s): I50.9 - Heart failure, unspecified Status: Acute Assessment and Plan: Echo EF 60-65%, moderate pulm HTN, both atria severely enlarged, right ventricle function severely reduced. BNP 5560. Appreciate cardiology consultation IV diuresis with good results with Bumex. Cumulative fluid balance -21.6L. Monitoring potential concerns for JENA. Potassium low from the Bumex. Feels not well. Related to overdiuresis? Replace potassium. Check orthostatic vitasl. Cont to monitor with serial labs (3) Chronic kidney disease: Code(s): N18.9 - Chronic kidney disease, unspecified Status: Acute Assessment and Plan: Cr was stable in the 2.0 range but up slightly to 2.3. Patient is not at dry weight however. Appreciate nephrology consultation. He may be getting close to a dry intravascular volume given his symptoms. Continue to monitor. Continue Bumex IV Check Orthostatic vitals as able (4) Fall from ground level: Code(s): W18.30XA - Fall on same level, unspecified, initial encounter Status: Acute Assessment and Plan: Slid down landing on his buttocks. No head injury. Continue PT/OT. Out of bed. (5) Chronic acquired lymphedema: Code(s): I89.0 - Lymphedema, not elsewhere classified Status: Acute Assessment and Plan: Worsened from CHF and improving slowly with diuresis. (6) Chronic anemia: Code(s): D64.9 - Anemia, unspecified Status: Acute Assessment and Plan: Baseline Hgb 9-11 At baseline currently at 9.6 Chronic anemia probably related to CKD Follow (7) Obstructive sleep apnea: Code(s): G47.33 - Obstructive sleep apnea (adult) (pediatric) Status: Chronic Assessment and Plan: No signs of hypoxia noted on the ApneaLink when the test was done with home unit in place and on 4L. Patient is compliant with BiPAP. Continue the same here. (8) Atrial fibrillation: Qualifiers: Atrial fibrillation type: longstanding persistent Qualified Code(s): I48.11 - Longstanding persistent atrial fibrillation Code(s): I48.91 - Unspecified atrial fibrillation Status: Acute Assessment and Plan: EKG showing chronic AFib. Patient's rate controlled. Continue Eliquis. Continue metoprolol for rate control. Okay to stop tele if okay with Cardiology Plan DVT prophylaxis with Eliquis Code status full code Subjective Date/time seen: 04/20/22 10:44 Interval history: 72yo male with CHF, AFib, lymphedema and CKD here for fall and found to have CHF exacerbation. Low grade fever last night. He is 'not feeling good' today. Feels SOB. Has chest 'heaviness' but no change from his chronic symptoms. Feels lightheaded and weak. No n/v. No dysuria or hematuria. No diarrhea. Last BM was 2 days ago. Having a
[2022-04-20 12:29] LABS: Influenza A QL RT-PCR Negative (Negative); Influenza B QL RT-PCR Negative (Negative); RSV RNA, RT-PCR Negative (Negative); SARS-CoV-2 RNA PCR Negative
[2022-04-20 12:38] LABS: Magnesium 2.7 mg/dL (1.6-2.3); Potassium 3.4 mmol/L (3.4-5.0)
[2022-04-20 12:41] LABS: Lipase 164 U/L (23-300)
--- NOTE | 2022-04-20 13:14 | PM.PNNEP ---
Progress Note: A&P Assessment and Plan (1) JENA (acute kidney injury): Code(s): N17.9 - Acute kidney failure, unspecified Status: Acute Assessment and Plan: fluctuating as noted... multiple issues contributing to his elevated creatinine: complex hemodynamics related to his vasculature volume overload possible renal venous hypertension need for diuretic therapy continue diuresis as tolerated his drop in UOP maybe a sign we may getting his intravascularly dry follow repeat labs and UOP (2) Chronic kidney disease, stage 3: Code(s): N18.30 - Chronic kidney disease, stage 3 unspecified Status: Chronic Assessment and Plan: baseline creatinine runs ~ 1.4 - 1.7mg/dl this causes him to fluctuate between CKD stage 3A and stage 3B due to hypertension and chronic pre renal azotemia due to his poorly functioning heart (3) Fever: Code(s): R50.9 - Fever, unspecified Status: Acute Assessment and Plan: etiology work-up in progress follow symptoms (4) Acute on chronic congestive heart failure: Qualifiers: Heart failure type: right-sided Qualified Code(s): I50.813 - Acute on chronic right heart failure Code(s): I50.9 - Heart failure, unspecified Status: Acute Assessment and Plan: due to right sided heart failure complicated by moderate pulmonary HTN continue aggressive IV diuretic therapy almost 21L negative since admission(!) (5) Obstructive sleep apnea: Code(s): G47.33 - Obstructive sleep apnea (adult) (pediatric) Status: Chronic Assessment and Plan: continue CPAP therapy reports compliance at home (6) Fall from ground level: Code(s): W18.30XA - Fall on same level, unspecified, initial encounter Status: Acute Assessment and Plan: 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 Subjective Date/time seen: 04/20/22 13:14 Urine output has dropped off a bit in the last 24 hours associated with a fever and general sensation of not feeling good although it is difficult for him to elaborate much more the general sensenation of discomfort over his entire body; no other issues overnight or earlier this AM. Exam Narrative: General: Large WD/WN male in NAD Heart: normal S1 and S2; no rub Lungs: clear to auscultation Abdomen: soft, nontender, nondistended, positive bowel sounds Extremities: no cyanosis or clubbing; 2 - 3+ edema Skin: chronic changes apparent Objective Data Vital Signs Vital Signs: Vital Signs Temp Pulse Resp BP Pulse Ox O2 Del Method 04/20/22 13:00 97.4 F L 106 H 20 115/56 L 97 04/20/22 12:00 63 04/20/22 11:51 130/62 04/20/22 11:50 114/55 L 04/20/22 08:00 Room Air 04/20/22 08:00 59 L 04/20/22 08:33 101 H 04/20/22 05:31 98.1 F 101 H 14 118/50 L 99 04/20/22 04:00 59 L 04/20/22 00:00 69 04/19/22 20:00 91 04/20/22 02:31 Autopap 04/19/22 20:00 Room Air 04/19/22 21:44 100.0 F H 88 14 131/54 L 93 04/19/22 21:02 Room Air 04/19/22 20:24 101 H Intake/Output Intake/Output: Intake & Output 04/17/22 04/18/22 04/19/22 04/20/22 23:59 23:59 23:59 23:59 Intake Total 720 1194 1110 1230 Output Total 5318 [address] [place] [address] [phone] Meds/Results Medications: Active Medications Generic Name Dose Route Start Last Admin Trade Name Freq PRN Reason Stop Dose Admin Acetaminophen 1,000 mg 04/11/22 23:42 04/19/22 20:50 Acetaminophen 500 Mg Tablet PO 1,000 mg Q6H PRN Administration Pain Rated 1-3 Acetazolamide 500 mg 04/16/22 17:00 04/20/22 16:45 Acetazolamide Tab 250 Mg Tablet PO 500 mg BID ANGELA Administration Apixaban 5 mg 04/12/22 09:00 04/20/22 08:31 Apixaban 5 Mg Tablet PO 5 mg Q12HR ANGELA Administration Aspirin 81 mg 04/12/22 09:00 04/20/22 08:31 Aspirin 81 Mg En
--- NOTE | 2022-04-20 13:14 | P.PNNP_ITS ---
Progress Note: A&P Assessment and Plan (1) JENA (acute kidney injury): Code(s): N17.9 - Acute kidney failure, unspecified Status: Acute Assessment and Plan: * fluctuating as noted... * multiple issues contributing to his elevated creatinine: * complex hemodynamics related to his vasculature * volume overload * possible renal venous hypertension * need for diuretic therapy * continue diuresis as tolerated * his drop in UOP maybe a sign we may getting his intravascularly dry * follow repeat labs and UOP (2) Chronic kidney disease, stage 3: Code(s): N18.30 - Chronic kidney disease, stage 3 unspecified Status: Chronic Assessment and Plan: * baseline creatinine runs ~ 1.4 - 1.7mg/dl * this causes him to fluctuate between CKD stage 3A and stage 3B * due to hypertension and chronic pre renal azotemia due to his poorly functioning heart (3) Fever: Code(s): R50.9 - Fever, unspecified Status: Acute Assessment and Plan: * etiology * work-up in progress * follow symptoms (4) Acute on chronic congestive heart failure: Qualifiers: Heart failure type: right-sided Qualified Code(s): I50.813 - Acute on chronic right heart failure Code(s): I50.9 - Heart failure, unspecified Status: Acute Assessment and Plan: * due to right sided heart failure complicated by moderate pulmonary HTN * continue aggressive IV diuretic therapy * almost 21L negative since admission(!) (5) Obstructive sleep apnea: Code(s): G47.33 - Obstructive sleep apnea (adult) (pediatric) Status: Chronic Assessment and Plan: * continue CPAP therapy * reports compliance at home (6) Fall from ground level: Code(s): W18.30XA - Fall on same level, unspecified, initial encounter Status: Acute Assessment and Plan: * 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 Subjective Date/time seen: 04/20/22 13:14 Urine output has dropped off a bit in the last 24 hours associated with a fever and general sensation of not feeling good although it is difficult for him to elaborate much more the general sensenation of discomfort over his entire body; no other issues overnight or earlier this AM. Exam Narrative: General: Large WD/WN male in NAD Heart: normal S1 and S2; no rub Lungs: clear to auscultation Abdomen: soft, nontender, nondistended, positive bowel sounds Extremities: no cyanosis or clubbing; 2 - 3+ edema Skin: chronic changes apparent Objective Data Vital Signs Vital Signs: Vital Signs Temp Pulse Resp BP Pulse Ox O2 Del Method 04/20/22 13:00 97.4 F L 106 H 20 115/56 L 97 04/20/22 12:00 63 04/20/22 11:51 130/62 04/20/22 11:50 114/55 L 04/20/22 08:00 Room Air 04/20/22 08:00 59 L 04/20/22 08:33 101 H 04/20/22 05:31 98.1 F 101 H 14 118/50 L 99 04/20/22 04:00 59 L 04/20/22 00:00 69 04/19/22 20:00 91 04/20/22 02:31 Autopap 04/19/22 20:00 Room Air 04/19/22 21:44 100.0 F H 88 14 131/54 L 93 04/19/22 21:02 Room Air 04/19/22 20:24 101 H Intake/Output Intake/Output: Intake & Output 04/17/22
--- NOTE | 2022-04-20 14:15 | PCOTNOTE ---
Attempted to see patient this pm, however patient declined stating, Well, I just got back from a bunch of testing. I had an ultrasound and an x-ray, and I'm just kind of (patient stuck out tongue and sighed.) If it wasn't for Cuong earlier, maybe I would, but...I'm kind of wore out right now.
--- NOTE | 2022-04-20 15:30 | PM.PNCARD ---
Progress Note: A&P Assessment and Plan (1) Acute on chronic congestive heart failure: Qualifiers: Heart failure type: right-sided Qualified Code(s): I50.813 - Acute on chronic right heart failure Code(s): I50.9 - Heart failure, unspecified Status: Acute Assessment and Plan: Acute on chronic right heart failure with preserved left ventricular systolic function, EF 60-65%. He also has moderate pulmonary hypertension, PASP 51 mmHg. Low sodium diet, strict I/Os, daily weights. Fluid balance ~21L negative Continue close monitoring of renal function and electrolytes. Delicate balance with regards to diuresis and maintenance renal function. Electrolytes, BUN/Cr remain stable today. Has diuresed well but is not at dry weight. Continue Bumex 2mg IV TID for heart failure. Continue with Acetazolamide 500 mg twice daily for heart failure. Metolazone p.r.n. (2) Chronic kidney disease: Code(s): N18.9 - Chronic kidney disease, unspecified Status: Acute Assessment and Plan: Minimize nephrotoxic agents. History of acute on chronic baseline stage 3 chronic kidney disease baseline creatinine is around 1.5. Monitor closely with aggressive diuresis. Daily BMP. Tolerating diuresis thus far. (3) Atrial fibrillation: Qualifiers: Atrial fibrillation type: longstanding persistent Qualified Code(s): I48.11 - Longstanding persistent atrial fibrillation Code(s): I48.91 - Unspecified atrial fibrillation Status: Acute Assessment and Plan: Heart rate controlled. Apixaban was held for 5 days for unclear reasons. This has been restarted. Continue metoprolol 50 mg twice daily for heart rate control. (4) Obstructive sleep apnea: Code(s): G47.33 - Obstructive sleep apnea (adult) (pediatric) Status: Chronic Assessment and Plan: Encouraged complaince with BiPAP (5) Pulmonary hypertension: Code(s): I27.20 - Pulmonary hypertension, unspecified Status: Acute Assessment and Plan: History of moderate pulmonary hypertension RVSP 51 mm Hg by echo 05/2021 continued BiPAP for AMELIA treatment. (6) Essential (primary) hypertension: Code(s): I10 - Essential (primary) hypertension Status: Acute Assessment and Plan: BP stable somewhat labile. Continue minoxidil 10 mg daily, metoprolol 50 mg twice daily. (7) Anemia: Qualifiers: Anemia type: due to chronic kidney disease Chronic kidney disease stage: stage 3 (moderate) Chronic kidney disease stage 3 subtype: unspecified whether 3a or 3b Qualified Code(s): N18.30 - Chronic kidney disease, stage 3 unspecified; D63.1 - Anemia in chronic kidney disease Code(s): D64.9 - Anemia, unspecified Status: Acute Assessment and Plan: H&H stable. No evidence for active bleed. Continue to follow. (8) Fall from ground level: Code(s): W18.30XA - Fall on same level, unspecified, initial encounter Status: Acute Assessment and Plan: Per patient report, secondary to weakness. PT/OT. He will need rehabilitation. Subjective Date/time seen: 04/20/22 15:30 Cardiology follow up for CHF, atrial fibrillation Interval history: Reason for visit: Decompensated right heart failure, atrial fibrillation HPI: Mr. Cyr Is a 72-year-old male with a past medical history significant for morbid obesity, obstructive sleep apnea on BiPAP,? heart failure with preserved ejection fraction, atrial fibrillation, and chronic kidney disease.? ? This is a patient who is followed in our office by Dr. Allen. ? He required a lengthy hospitalization here back in May of 2021 for acute on chronic heart failure.? During that hospitalization he required intermittent dialysis for volume removal.? Patient states that since that hospital stay is he has been unable to follow-up with Dr. Allen because of other hospitalizations /rehab stays.? He has not required any h
[2022-04-20 16:40] LABS: Appearance Urine Clear (Clear); Bilirubin Urine Negative (Negative); Blood Urine Negative (Negative); Color Urine Yellow (Yellow); Glucose Urine UA Negative (Negative); Ketones Urine Negative (Negative); Leukocyte Esterase Ur Negative LEU/UL (Negative); Nitrate Urine Negative (Negative); Protein Urine Negative (Negative); Specific Grav Ur 1.015 (1.001-1.035); pH Urine 7.5 (5.0-9.0)
[2022-04-20 16:43] LABS: Add Urine Microscopic? NO
[2022-04-20] MEDS: SENNA/DOCUSATE SODIUM TABLET 1 TAB PO (21:01)
[2022-04-20] MEDS: ACETAMINOPHEN 500 MG TABLET 1000 MG PO (21:04)
[2022-04-21] VITALS (13 sets, daily range): BP systolic 115–128; BP diastolic 53–68; PULSE 52–86; RESP 16–18; TEMP 36–36.4; O2SAT 93–99
[2022-04-21] MEDS: LEVOTHYROXINE SODIUM 100 MCG TABLET 200 MCG PO (06:30)
[2022-04-21 07:01] LABS: Basophils Absolute Auto 0.1 K/mm3 (0.0-0.1); Basophils Percent Auto 1.5 % (0.2-1.2); Eosinophils Absolute Auto 0.5 K/mm3 (0-0.3); Hematocrit 35.5 % (42.0-52.0); Hemoglobin 9.7 g/dL (14.0-18.0); Immature Granulocyte Absolute 0.04 K/mm3 (0.00-0.031); Immature Granulocyte Percent A 0.6 % (0-0.5); Lymphocytes Absolute Auto 0.68 K/mm3 (0.9-3.2); Lymphocytes Percent Auto 10.5 % (18.3-44.2); Mean Corpuscular HGB Conc 27.3 g/dl (32-36); Mean Corpuscular Hemoglobin 23.3 pg (26-34); Mean Corpuscular Volume 85.3 fl (80-100); Mean Platelet Volume 11.9 fl (7.4-10.4); Monocytes Absolute Auto 0.8 K/mm3 (0.1-0.6); Monocytes Percent Auto 11.6 % (2.6-8.5); Neutrophils Absolute Auto 4.4 K/mm3 (1.3-6.7); Neutrophils Percent Auto 67.8 % (45.5-73.1); Platelet Count Result 286 k/mm3 (150-375); Red Blood Count 4.16 M/mm3 (4.6-6.20); Red Cell Distribution Width 17.2 % (11.5-14.5); White Blood Count 6.5 K/mm3 (4.5-10.0)
[2022-04-21 07:05] LABS: Alanine Aminotransferase 10 U/L (6-50); Albumin Level 3.3 g/dL (3.5-5.1); Alkaline Phosphatase 46 U/L (38-126); Anion Gap 5 mmol/L (8-16); Aspartate Amino Transferase 22 U/L (17-59); Blood Urea Nitrogen 33 mg/dL (9-20); Carbon Dioxide 36 mmol/L (22-30); Chloride 92 mmol/L (98-107); Estimated CRCL calculation 45 ml/min; Estimated Glomerular Filt Rate 29; Glucose 88 mg/dL (65-110); Potassium 2.8 mmol/L (3.4-5.0); Sodium 133 mmol/L (137-145)
[2022-04-21 07:44] LABS: Anisocytosis 1+ (NORMAL); Hypochromasia 1+ (NORMAL); Ovalocytes 1+ (NORMAL); Platelet Estimate Adequate (Adequate); Schistocytes None Seen (NORMAL)
[2022-04-21] MEDS: POTASSIUM CHLORIDE 20 MEQ TABLET.ER 40 MEQ PO ×2 (08:55→16:39)
[2022-04-21] MEDS: acetaZOLAMIDE TAB 250 MG TABLET 500 MG PO ×3 (08:55→16:39)
[2022-04-21] MEDS: FERROUS SULFATE 324 MG TABLET PO (08:55)
[2022-04-21] MEDS: EUCERIN CREAM 454 GM JAR 1 APPLIC TOPICAL ×2 (08:55→20:36)
[2022-04-21] MEDS: BUMETANIDE INJ 2.5 MG/10 ML VIAL 2 MG IV PUSH ×3 (08:55→16:39)
[2022-04-21] MEDS: APIXABAN 5 MG TABLET PO ×2 (08:55→20:36)
[2022-04-21] MEDS: ASPIRIN 81 MG ENTERIC TABLET PO (08:55)
[2022-04-21] MEDS: LORATADINE 10 MG TABLET PO (08:56)
[2022-04-21] MEDS: minoxidiL 10 MG TABLET PO (08:56)
[2022-04-21] MEDS: GABAPENTIN 300 MG CAPSULE PO ×3 (08:56→16:39)
[2022-04-21] MEDS: TAMSULOSIN HCL 0.4 MG CAPSULE PO (08:56)
[2022-04-21] MEDS: PANTOPRAZOLE 40 MG TABLET PO (08:56)
[2022-04-21] MEDS: FLUTICASONE PROPIONATE 0.05% NA SPR 16 GM BTL (*BKC) 1 SPRAY NASAL (08:56)
[2022-04-21] MEDS: polyethylene glycoL 3350 17 GM POWD.PACK PO (08:56)
[2022-04-21] MEDS: METOPROLOL TARTRATE 50 MG TAB PO ×2 (08:56→20:35)
[2022-04-21] MEDS: POTASSIUM CHLORIDE 20 MEQ TABLET 40 MEQ PO (12:13)
--- NOTE | 2022-04-21 12:15 | P.PNNP_ITS ---
Progress Note: A&P Assessment and Plan (1) JENA (acute kidney injury): Code(s): N17.9 - Acute kidney failure, unspecified Status: Acute Assessment and Plan: * fluctuating as noted... * multiple issues contributing to his elevated creatinine: * complex hemodynamics related to his vasculature * volume overload * possible renal venous hypertension * need for diuretic therapy * continue diuresis as tolerated * change acetazolamide to tid * consider spironolactone given hypokalemia * follow repeat labs and UOP (2) Chronic kidney disease, stage 3: Code(s): N18.30 - Chronic kidney disease, stage 3 unspecified Status: Chronic Assessment and Plan: * baseline creatinine runs ~ 1.4 - 1.7mg/dl * this causes him to fluctuate between CKD stage 3A and stage 3B * due to hypertension and chronic pre renal azotemia due to his poorly functioning heart (3) Fever: Code(s): R50.9 - Fever, unspecified Status: Acute Assessment and Plan: * etiology * work-up so far negative * follow symptoms (4) Acute on chronic congestive heart failure: Qualifiers: Heart failure type: right-sided Qualified Code(s): I50.813 - Acute on chronic right heart failure Code(s): I50.9 - Heart failure, unspecified Status: Acute Assessment and Plan: * due to right sided heart failure complicated by moderate pulmonary HTN * continue aggressive IV diuretic therapy * almost 24L negative since admission(!!) (5) Obstructive sleep apnea: Code(s): G47.33 - Obstructive sleep apnea (adult) (pediatric) Status: Chronic Assessment and Plan: * continue CPAP therapy * reports compliance at home (6) Fall from ground level: Code(s): W18.30XA - Fall on same level, unspecified, initial encounter Status: Acute Assessment and Plan: * 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 Subjective Date/time seen: 04/21/22 12:15 Feels better today but not at baseline and it difficult to him to elaborate on this; he report that he had good bowel movement earlier today and that he felt better afterwards but weak as well; renal function appears to be tolerating diuresis although metabolic alkalosis and hypokalemia noted to be an issue on AM labs. Exam Narrative: General: Large WD/WN male in NAD Heart: normal S1 and S2; no rub Lungs: clear but decreased at bases Abdomen: soft, nontender, nondistended, positive bowel sounds Extremities: no cyanosis or clubbing; 2+ edema Skin: chronic changes noted Objective Data Vital Signs Vital Signs: Vital Signs Temp Pulse Resp BP Pulse Ox O2 Del Method 04/21/22 12:00 56 L 04/21/22 08:00 54 L 04/21/22 08:00 Room Air 04/21/22 08:56 78 04/21/22 06:00 96.8 F L 52 L 17 122/62 99 04/21/22 04:00 52 L 04/21/22 02:23 54 L 98 Room Air 04/20/22 22:19 100 96 Room Air 04/21/22 00:00 52 L 04/20/22 21:00 98 F 107 H 16 122/63 91 04/20/22 20:00 107 H 04/20/22 22:00 98 F 107 H 16 122/63 91 04/20/22 21:01 99 04/20/22 20:32 92 Room Air Intake/Output Intake/Output: Intake & Output 04/18/22 04/19/22 04/20/22 0
--- NOTE | 2022-04-21 12:15 | PM.PNNEP ---
Progress Note: A&P Assessment and Plan (1) JENA (acute kidney injury): Code(s): N17.9 - Acute kidney failure, unspecified Status: Acute Assessment and Plan: fluctuating as noted... multiple issues contributing to his elevated creatinine: complex hemodynamics related to his vasculature volume overload possible renal venous hypertension need for diuretic therapy continue diuresis as tolerated change acetazolamide to tid consider spironolactone given hypokalemia follow repeat labs and UOP (2) Chronic kidney disease, stage 3: Code(s): N18.30 - Chronic kidney disease, stage 3 unspecified Status: Chronic Assessment and Plan: baseline creatinine runs ~ 1.4 - 1.7mg/dl this causes him to fluctuate between CKD stage 3A and stage 3B due to hypertension and chronic pre renal azotemia due to his poorly functioning heart (3) Fever: Code(s): R50.9 - Fever, unspecified Status: Acute Assessment and Plan: etiology work-up so far negative follow symptoms (4) Acute on chronic congestive heart failure: Qualifiers: Heart failure type: right-sided Qualified Code(s): I50.813 - Acute on chronic right heart failure Code(s): I50.9 - Heart failure, unspecified Status: Acute Assessment and Plan: due to right sided heart failure complicated by moderate pulmonary HTN continue aggressive IV diuretic therapy almost 24L negative since admission(!!) (5) Obstructive sleep apnea: Code(s): G47.33 - Obstructive sleep apnea (adult) (pediatric) Status: Chronic Assessment and Plan: continue CPAP therapy reports compliance at home (6) Fall from ground level: Code(s): W18.30XA - Fall on same level, unspecified, initial encounter Status: Acute Assessment and Plan: 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 Subjective Date/time seen: 04/21/22 12:15 Feels better today but not at baseline and it difficult to him to elaborate on this; he report that he had good bowel movement earlier today and that he felt better afterwards but weak as well; renal function appears to be tolerating diuresis although metabolic alkalosis and hypokalemia noted to be an issue on AM labs. Exam Narrative: General: Large WD/WN male in NAD Heart: normal S1 and S2; no rub Lungs: clear but decreased at bases Abdomen: soft, nontender, nondistended, positive bowel sounds Extremities: no cyanosis or clubbing; 2+ edema Skin: chronic changes noted Objective Data Vital Signs Vital Signs: Vital Signs Temp Pulse Resp BP Pulse Ox O2 Del Method 04/21/22 12:00 56 L 04/21/22 08:00 54 L 04/21/22 08:00 Room Air 04/21/22 08:56 78 04/21/22 06:00 96.8 F L 52 L 17 122/62 99 04/21/22 04:00 52 L 04/21/22 02:23 54 L 98 Room Air 04/20/22 22:19 100 96 Room Air 04/21/22 00:00 52 L 04/20/22 21:00 98 F 107 H 16 122/63 91 04/20/22 20:00 107 H 04/20/22 22:00 98 F 107 H 16 122/63 91 04/20/22 21:01 99 04/20/22 20:32 92 Room Air Intake/Output Intake/Output: Intake & Output 04/18/22 04/19/22 04/20/22 04/21/22 23:59 23:59 23:59 23:59 Intake Total 1194 1110 1470 942 Output Total 0375 3200 4250 2925 [facility] -4381 -2090 -2780 -1983 Meds/Results Medications: Active Medications Generic Name Dose Route Start Last Admin Trade Name Freq PRN Reason Stop Dose Admin Acetaminophen 1,000 mg 04/11/22 23:42 04/20/22 21:04 Acetaminophen 500 Mg Tablet PO 1,000 mg Q6H PRN Administration Pain Rated 1-3 Acetazolamide 500 mg 04/21/22 13:00 04/21/22 16:39 Acetazolamide Tab 250 Mg Tablet PO 500 mg TID ANGELA Administration Apixaban 5 mg 04/12/22 09:00 04/21/22 08:55 Apixaban 5 Mg Tablet PO 5 mg Q12HR ANGELA Administration Aspirin 81 mg 04/12/22 09:00 04/21/22 08:55 Aspirin 81 Mg Enteric T
--- NOTE | 2022-04-21 14:26 | PM.PNCARD ---
Progress Note: A&P Assessment and Plan (1) Acute on chronic congestive heart failure: Qualifiers: Heart failure type: right-sided Qualified Code(s): I50.813 - Acute on chronic right heart failure Code(s): I50.9 - Heart failure, unspecified Status: Acute Assessment and Plan: Acute on chronic right heart failure with preserved left ventricular systolic function, EF 60-65%. He also has moderate pulmonary hypertension, PASP 51 mmHg. Low sodium diet, strict I/Os, daily weights. Fluid balance ~24.5L negative Continue close monitoring of renal function and electrolytes. Delicate balance with regards to diuresis and maintenance renal function. Electrolytes, BUN/Cr remain stable today. Has diuresed very well but remains volume overloaded. Continue Bumex 2mg IV TID for heart failure. Continue with Acetazolamide 500 mg twice daily for heart failure. Metolazone p.r.n. Given history of abdominal ultrasound evidence of cirrhosis with portal hypertension, splenomegaly and ascites along with rapidly decompensated right heart failure, pulmonary hypertension raises concern for portopulmonary hypertension. As such, patient would benefit from [id number] heart catheterization but will be best served with referral to [place] [facility] upon discharge. Consider Repeat echocardiogram to reassess pulmonary pressures, valve pathology and RV function/size. Explained the complex physiology involved an extensive multidisciplinary workup in this regard. Consider repeat abdominal ultrasound to assess for cirrhosis as was previously documented but discrepant findings on CT. (2) Chronic kidney disease: Code(s): N18.9 - Chronic kidney disease, unspecified Status: Acute Assessment and Plan: Minimize nephrotoxic agents. History of acute on chronic baseline stage 3 chronic kidney disease baseline creatinine is around 1.5 but likely will need to establish higher baseline to maintain adequate volume control. Currently creatinine stable at 2.2. Monitor closely with aggressive diuresis. Daily BMP. Tolerating diuresis thus far. May 2021 Ultrasound abdomen revealed cirrhosis with portal hypertension, splenomegaly and ascites. (3) Atrial fibrillation: Qualifiers: Atrial fibrillation type: longstanding persistent Qualified Code(s): I48.11 - Longstanding persistent atrial fibrillation Code(s): I48.91 - Unspecified atrial fibrillation Status: Acute Assessment and Plan: Heart rate controlled. Apixaban was held for 5 days for unclear reasons. This has been restarted. Continue metoprolol 50 mg twice daily for heart rate control. Need to keep potassium closer to 4.0. He will likely need at least 100 mEq potassium chloride daily to maintain potassium in normal range. (4) Obstructive sleep apnea: Code(s): G47.33 - Obstructive sleep apnea (adult) (pediatric) Status: Chronic Assessment and Plan: Encouraged complaince with BiPAP (5) Pulmonary hypertension: Code(s): I27.20 - Pulmonary hypertension, unspecified Status: Acute Assessment and Plan: History of moderate pulmonary hypertension RVSP 51 mm Hg by echo 05/2021 continued BiPAP for AMELIA treatment. (6) Essential (primary) hypertension: Code(s): I10 - Essential (primary) hypertension Status: Acute Assessment and Plan: BP stable somewhat labile. Continue minoxidil 10 mg daily, metoprolol 50 mg twice daily. (7) Anemia: Qualifiers: Anemia type: due to chronic kidney disease Chronic kidney disease stage: stage 3 (moderate) Chronic kidney disease stage 3 subtype: unspecified whether 3a or 3b Qualified Code(s): N18.30 - Chronic kidney disease, stage 3 unspecified; D63.1 - Anemia in chronic kidney disease Code(s): D64.9 - Anemia, unspecified Status: Acute Assessment and Plan: H&H stable. No evidence for active bleed. Continue to
--- NOTE | 2022-04-21 14:28 | PM.IMPN ---
Progress Note: A&P Assessment and Plan (1) Fever: Code(s): R50.9 - Fever, unspecified Status: Acute Assessment and Plan: Patient had low grade fever on 04/19. CRP 1.0 which is normal. LE venous doppler negative for DVT. CXR reviewed personally and the lung wolf are clear without infiltrate (radiology concurs). UA clear. CT A/P results reviewed personally showing bilateral pleural effusions and mild splenomegalybut no clear etiology of his abdominal pain. Fever has not recurred. Continue to monitor. (2) Acute on chronic congestive heart failure: Qualifiers: Heart failure type: right-sided Qualified Code(s): I50.813 - Acute on chronic right heart failure Code(s): I50.9 - Heart failure, unspecified Status: Acute Assessment and Plan: Echo EF 60-65%, moderate pulm HTN, both atria severely enlarged, right ventricle function severely reduced. BNP 5560. IV diuresis with good results with Bumex. Cumulative fluid balance -24.5L. Monitoring potential concerns for JENA. Potassium low from the Bumex. Feels not well. Appreciate cardiology input Potassium low again so will replace potassium and advance his oral regiment. Cont to monitor with serial labs (3) Chronic kidney disease: Code(s): N18.9 - Chronic kidney disease, unspecified Status: Acute Assessment and Plan: Cr was stable in the 2.0 range but up slightly to 2.2. Patient is not at dry weight however. Appreciate nephrology consultation. He may be getting close to a dry intravascular volume Continue to monitor. Continue Bumex IV (4) Fall from ground level: Code(s): W18.30XA - Fall on same level, unspecified, initial encounter Status: Acute Assessment and Plan: Slid down landing on his buttocks. No head injury. Continue PT/OT. Out of bed. (5) Chronic acquired lymphedema: Code(s): I89.0 - Lymphedema, not elsewhere classified Status: Acute Assessment and Plan: Worsened from CHF and improving slowly with diuresis. (6) Chronic anemia: Code(s): D64.9 - Anemia, unspecified Status: Acute Assessment and Plan: Baseline Hgb 9-11 hgb stable at 9.7 Chronic anemia probably related to CKD Follow (7) Obstructive sleep apnea: Code(s): G47.33 - Obstructive sleep apnea (adult) (pediatric) Status: Chronic Assessment and Plan: No signs of hypoxia noted on the ApneaLink when the test was done with home unit in place and on 4L. Patient is compliant with BiPAP. Continue the same here. (8) Atrial fibrillation: Qualifiers: Atrial fibrillation type: longstanding persistent Qualified Code(s): I48.11 - Longstanding persistent atrial fibrillation Code(s): I48.91 - Unspecified atrial fibrillation Status: Acute Assessment and Plan: EKG showing chronic AFib. Patient's rate controlled. Continue Eliquis. Continue metoprolol for rate control. Okay to stop tele if okay with Cardiology Plan DVT prophylaxis with Eliquis Code status full code Subjective Date/time seen: 04/21/22 14:28 Interval history: 72yo male with CHF, AFib, lymphedema and CKD here for fall and found to have CHF exacerbation. No further fevers. Feels weak. Was up to bedside commode and had large BM but very fatigued with this event. Currently back in bed. Able to lie flat in bed. More SOB last night but better today. Couldn't get Sebas hose on. Exam Narrative: AF 96.8 122/62 78 17 99% ra Gen - NARD lying almost flat in bed Chest - lungs are clear anteriorly and in the flanks. CV - Irregularly irregular. S1-S2. telemetry showing afib but no significant dysrhythmias Abd - Soft. Obese. Positive bowel sounds. Diffuse tenderness with guarding. Bilateral flank pitting edema. Ext - Bilateral severe lymphedema. Psych - Nml mood and affect Skin - Chronic venous stasis skin changes bilateral lower extremities. wri
[2022-04-21 16:29] LABS: Potassium 3.7 mmol/L (3.4-5.0)
[2022-04-21] MEDS: SENNA/DOCUSATE SODIUM TABLET 1 TAB PO (20:36)
[2022-04-21] MEDS: ACETAMINOPHEN 500 MG TABLET 1000 MG PO (20:38)
[2022-04-22] VITALS (14 sets, daily range): BP systolic 117–152; BP diastolic 53–66; PULSE 53–107; RESP 16–20; TEMP 36.1–37; O2SAT 94–100
[2022-04-22] MEDS: LEVOTHYROXINE SODIUM 100 MCG TABLET 200 MCG PO (06:13)
[2022-04-22 06:38] LABS: Basophils Absolute Auto 0.1 K/mm3 (0.0-0.1); Basophils Percent Auto 1.6 % (0.2-1.2); Eosinophils Absolute Auto 0.5 K/mm3 (0-0.3); Eosinophils Percent Auto 8.5 % (0-4.4); Hematocrit 36.5 % (42.0-52.0); Hemoglobin 9.7 g/dL (14.0-18.0); Immature Granulocyte Absolute 0.04 K/mm3 (0.00-0.031); Immature Granulocyte Percent A 0.6 % (0-0.5); Lymphocytes Percent Auto 11.1 % (18.3-44.2); Mean Corpuscular HGB Conc 26.6 g/dl (32-36); Mean Corpuscular Hemoglobin 23.2 pg (26-34); Mean Corpuscular Volume 87.1 fl (80-100); Mean Platelet Volume 11.7 fl (7.4-10.4); Monocytes Absolute Auto 0.8 K/mm3 (0.1-0.6); Monocytes Percent Auto 11.8 % (2.6-8.5); Neutrophils Absolute Auto 4.2 K/mm3 (1.3-6.7); Neutrophils Percent Auto 66.4 % (45.5-73.1); Platelet Count Result 273 k/mm3 (150-375); Red Blood Count 4.19 M/mm3 (4.6-6.20); Red Cell Distribution Width 17.4 % (11.5-14.5); White Blood Count 6.3 K/mm3 (4.5-10.0)
[2022-04-22 06:42] LABS: Alanine Aminotransferase 10 U/L (6-50); Albumin Level 3.4 g/dL (3.5-5.1); Alkaline Phosphatase 46 U/L (38-126); Anion Gap 5 mmol/L (8-16); Aspartate Amino Transferase 23 U/L (17-59); Bilirubin,Total 0.8 mg/dL (0.2-1.3); Blood Urea Nitrogen 33 mg/dL (9-20); Calcium 8.1 mg/dL (8.4-10.2); Carbon Dioxide 34 mmol/L (22-30); Chloride 95 mmol/L (98-107); Estimated CRCL calculation 43 ml/min; Estimated Glomerular Filt Rate 28; Glucose 94 mg/dL (65-110); Sodium 134 mmol/L (137-145)
[2022-04-22 07:51] LABS: Platelet Estimate Adequate (Adequate)
[2022-04-22 07:52] LABS: Magnesium 2.8 mg/dL (1.6-2.3)
[2022-04-22 07:52] LABS: Anisocytosis 1+ (NORMAL); Ovalocytes 1+ (NORMAL)
[2022-04-22 07:53] LABS: Schistocytes None Seen (NORMAL)
[2022-04-22 07:58] LABS: Hypochromasia 1+ (NORMAL); Tear Drop Cells 1+ (NORMAL)
--- NOTE | 2022-04-22 07:58 | PC.NURSE ---
Spoke with lab assist after brief writer put in magnesium order and she will add magnesium to AM labs.
[2022-04-22] MEDS: POTASSIUM CHLORIDE 20 MEQ TABLET 40 MEQ PO (09:23)
[2022-04-22] MEDS: FERROUS SULFATE 324 MG TABLET PO (09:24)
[2022-04-22] MEDS: BUMETANIDE INJ 2.5 MG/10 ML VIAL 2 MG IV PUSH ×3 (09:24→17:42)
[2022-04-22] MEDS: POTASSIUM CHLORIDE 20 MEQ TABLET.ER 40 MEQ PO ×2 (09:24→17:44)
[2022-04-22] MEDS: APIXABAN 5 MG TABLET PO ×2 (09:24→21:58)
[2022-04-22] MEDS: EUCERIN CREAM 454 GM JAR 1 APPLIC TOPICAL ×2 (09:24→21:59)
[2022-04-22] MEDS: acetaZOLAMIDE TAB 250 MG TABLET 500 MG PO ×3 (09:24→17:42)
[2022-04-22] MEDS: ASPIRIN 81 MG ENTERIC TABLET PO (09:24)
[2022-04-22] MEDS: polyethylene glycoL 3350 17 GM POWD.PACK PO (09:25)
[2022-04-22] MEDS: TAMSULOSIN HCL 0.4 MG CAPSULE PO (09:25)
[2022-04-22] MEDS: LORATADINE 10 MG TABLET PO (09:25)
[2022-04-22] MEDS: FLUTICASONE PROPIONATE 0.05% NA SPR 16 GM BTL (*BKC) 1 SPRAY NASAL (09:25)
[2022-04-22] MEDS: minoxidiL 10 MG TABLET PO (09:25)
[2022-04-22] MEDS: PANTOPRAZOLE 40 MG TABLET PO (09:25)
[2022-04-22] MEDS: GABAPENTIN 300 MG CAPSULE PO ×3 (09:25→17:42)
--- NOTE | 2022-04-22 11:38 | PC.NURSE ---
Held patients metoprolol as diastolic blood pressure is lower and heart rate has been low 50's. Called hospitalist De to get confirmation to give medication with these vitals. No answer at this time.
--- NOTE | 2022-04-22 11:50 | PM.PNNEP ---
Progress Note: A&P Assessment and Plan (1) JENA (acute kidney injury): Code(s): N17.9 - Acute kidney failure, unspecified Status: Acute Assessment and Plan: fluctuations as noted... multiple issues contributing to his elevated creatinine: complex hemodynamics related to his vasculature volume overload possible renal venous hypertension need for diuretic therapy continue diuresis as tolerated change acetazolamide to tid consider spironolactone given hypokalemia if persists follow repeat labs and UOP (2) Chronic kidney disease, stage 3: Code(s): N18.30 - Chronic kidney disease, stage 3 unspecified Status: Chronic Assessment and Plan: baseline creatinine runs ~ 1.4 - 1.7mg/dl this causes him to fluctuate between CKD stage 3A and stage 3B due to hypertension and chronic pre renal azotemia due to his poorly functioning heart (3) Fever: Code(s): R50.9 - Fever, unspecified Status: Acute Assessment and Plan: etiology work-up so far negative follow symptoms (4) Acute on chronic congestive heart failure: Qualifiers: Heart failure type: right-sided Qualified Code(s): I50.813 - Acute on chronic right heart failure Code(s): I50.9 - Heart failure, unspecified Status: Acute Assessment and Plan: due to right sided heart failure complicated by moderate pulmonary HTN continue aggressive IV diuretic therapy almost 27L negative since admission(!!) (5) Obstructive sleep apnea: Code(s): G47.33 - Obstructive sleep apnea (adult) (pediatric) Status: Chronic Assessment and Plan: continue CPAP therapy reports compliance at home (6) Fall from ground level: Code(s): W18.30XA - Fall on same level, unspecified, initial encounter Status: Acute Assessment and Plan: 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 Subjective Date/time seen: 04/22/22 11:50 Continues to diureses with current interventions/therapy; still feels sore but he attributes this to his edema/swelling; no other acute issues/events voiced at the time of my visit. Exam Narrative: General: Large WD/WN male in NAD Heart: normal S1 and S2; no rub Lungs: clear but decreased at bases Abdomen: soft, nontender, nondistended, positive bowel sounds Extremities: no cyanosis or clubbing; 2+ edema Skin: chronic changes present Objective Data Vital Signs Vital Signs: Vital Signs Temp Pulse Resp BP Pulse Ox O2 Del Method 04/22/22 08:00 54 L 04/22/22 08:00 Room Air 04/22/22 09:39 53 L 04/22/22 08:26 97 F L 54 L 20 126/58 L 100 04/22/22 08:00 97 F L 53 L 20 117/53 L 100 04/22/22 06:00 98.6 F 59 L 20 120/54 L 96 04/22/22 04:00 57 L 04/22/22 01:48 97.2 F L 70 16 131/60 95 04/21/22 22:00 97.6 F 79 16 118/56 L 93 04/21/22 20:00 97.4 F L 65 16 115/53 L 95 04/22/22 00:00 54 L 04/21/22 20:40 79 04/21/22 20:35 86 04/21/22 16:00 55 L Intake/Output Intake/Output: Intake & Output 04/19/22 04/20/22 04/21/22 04/22/22 23:59 23:59 23:59 23:59 Intake Total 1110 1470 1182 682 Output Total 3200 4250 4129 925 Balance -2090 -2780 -2943 -243 Meds/Results Medications: Active Medications Generic Name Dose Route Start Last Admin Trade Name Alanis PRN Reason Stop Dose Admin Acetaminophen 1,000 mg 04/11/22 23:42 04/21/22 20:38 Acetaminophen 500 Mg Tablet PO 1,000 mg Q6H PRN Administration Pain Rated 1-3 Acetazolamide 500 mg 04/21/22 13:00 04/22/22 12:29 Acetazolamide Tab 250 Mg Tablet PO 500 mg TID ANGELA Administration Apixaban 5 mg 04/12/22 09:00 04/22/22 09:24 Apixaban 5 Mg Tablet PO 5 mg Q12HR ANGELA Administration Aspirin 81 mg 04/12/22 09:00 04/22/22 09:24 Aspirin 81 Mg Enteric Tablet PO 81 mg DAILY ANGELA Administration Bumetanide 2 mg 04/14/22 09:00 04/02
--- NOTE | 2022-04-22 11:50 | P.PNNP_ITS ---
Progress Note: A&P Assessment and Plan (1) JENA (acute kidney injury): Code(s): N17.9 - Acute kidney failure, unspecified Status: Acute Assessment and Plan: * fluctuations as noted... * multiple issues contributing to his elevated creatinine: * complex hemodynamics related to his vasculature * volume overload * possible renal venous hypertension * need for diuretic therapy * continue diuresis as tolerated * change acetazolamide to tid * consider spironolactone given hypokalemia if persists * follow repeat labs and UOP (2) Chronic kidney disease, stage 3: Code(s): N18.30 - Chronic kidney disease, stage 3 unspecified Status: Chronic Assessment and Plan: * baseline creatinine runs ~ 1.4 - 1.7mg/dl * this causes him to fluctuate between CKD stage 3A and stage 3B * due to hypertension and chronic pre renal azotemia due to his poorly functioning heart (3) Fever: Code(s): R50.9 - Fever, unspecified Status: Acute Assessment and Plan: * etiology * work-up so far negative * follow symptoms (4) Acute on chronic congestive heart failure: Qualifiers: Heart failure type: right-sided Qualified Code(s): I50.813 - Acute on chronic right heart failure Code(s): I50.9 - Heart failure, unspecified Status: Acute Assessment and Plan: * due to right sided heart failure complicated by moderate pulmonary HTN * continue aggressive IV diuretic therapy * almost 27L negative since admission(!!) (5) Obstructive sleep apnea: Code(s): G47.33 - Obstructive sleep apnea (adult) (pediatric) Status: Chronic Assessment and Plan: * continue CPAP therapy * reports compliance at home (6) Fall from ground level: Code(s): W18.30XA - Fall on same level, unspecified, initial encounter Status: Acute Assessment and Plan: * 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 Subjective Date/time seen: 04/22/22 11:50 Continues to diureses with current interventions/therapy; still feels sore but he attributes this to his edema/swelling; no other acute issues/events voiced at the time of my visit. Exam Narrative: General: Large WD/WN male in NAD Heart: normal S1 and S2; no rub Lungs: clear but decreased at bases Abdomen: soft, nontender, nondistended, positive bowel sounds Extremities: no cyanosis or clubbing; 2+ edema Skin: chronic changes present Objective Data Vital Signs Vital Signs: Vital Signs Temp Pulse Resp BP Pulse Ox O2 Del Method 04/22/22 08:00 54 L 04/22/22 08:00 Room Air 04/22/22 09:39 53 L 04/22/22 08:26 97 F L 54 L 20 126/58 L 100 04/22/22 08:00 97 F L 53 L 20 117/53 L 100 04/22/22 06:00 98.6 F 59 L 20 120/54 L 96 04/22/22 04:00 57 L 04/22/22 01:48 97.2 F L 70 16 131/60 95 04/21/22 22:00 97.6 F 79 16 118/56 L 93 04/21/22 20:00 97.4 F L 65 16 115/53 L 95 04/22/22 00:00 54 L 04/21/22 20:40 79 04/21/22 20:35 86 04/21/22 16:00 55 L Intake/Output Intake/Output: Intake & Output 04/19/22 04/20/22 04/21/22 04/22/22 23:59 23:59 23:59 23:59 Intake Total 1110 1470 1182 682
[2022-04-22] MEDS: METOPROLOL TARTRATE 50 MG TAB PO ×2 (12:27→21:58)
--- NOTE | 2022-04-22 13:37 | PM.PNCARD ---
Progress Note: A&P Assessment and Plan (1) Acute on chronic congestive heart failure: Qualifiers: Heart failure type: right-sided Qualified Code(s): I50.813 - Acute on chronic right heart failure Code(s): I50.9 - Heart failure, unspecified Status: Acute Assessment and Plan: Acute on chronic right heart failure with preserved left ventricular systolic function, EF 60-65%. He also has moderate pulmonary hypertension, PASP 51 mmHg. Low sodium diet, strict I/Os, daily weights. Fluid balance ~27L negative but patient remains significantly volume overloaded. Continue close monitoring of renal function and electrolytes. Delicate balance with regards to diuresis and maintenance renal function. Electrolytes, BUN/Cr remain stable today. Has diuresed very well but remains volume overloaded. Continue Bumex 2mg IV TID for heart failure. Patient persistently hypokalemic. Increase potassium supplementation. May consider addition of spironolactone as suggested by Nephrology little hesitant given increase in Acetazolamide just recently. If tolerating therapy and remains hypokalemic in AM reasonable to start Spironolactone. Give additional potassium chloride 40 mEq p.o. x1. Continue with Acetazolamide 500 mg 3 times daily for heart failure. Metolazone p.r.n. Discussed previous concern regarding history of abdominal ultrasound evidence of cirrhosis with portal hypertension, splenomegaly and ascites along with rapidly decompensated right heart failure, pulmonary hypertension raises concern for portopulmonary hypertension. Repeat upper quadrant ultrasound revealed normal liver without lesion or service nodularity with normal flow in the main portal vein. This would argue against portal pulmonary hypertension. Continue with aggressive diuresis. (2) Atrial fibrillation: Qualifiers: Atrial fibrillation type: longstanding persistent Qualified Code(s): I48.11 - Longstanding persistent atrial fibrillation Code(s): I48.91 - Unspecified atrial fibrillation Status: Acute Assessment and Plan: Heart rate controlled. Apixaban 5mg BID for CVA risk reduction. Continue metoprolol 50 mg twice daily for heart rate control. Need to keep potassium closer to 4.0. More aggressive potassium supplementation. May discontinue telemetry was potassium stabilized. (3) Hypokalemia: Code(s): E87.6 - Hypokalemia Status: Resolved Assessment and Plan: As above remains persistently hypokalemic secondary to aggressive diuresis. Increase potassium supplementation with degree of diuresis. Will give additional 40 mEq potassium chloride x1. Consider adding spironolactone in a.m. depending upon BP, renal function. (4) Chronic kidney disease: Code(s): N18.9 - Chronic kidney disease, unspecified Status: Acute Assessment and Plan: Minimize nephrotoxic agents. History of acute on chronic baseline stage 3 chronic kidney disease baseline creatinine is around 1.5 but likely will need to establish higher baseline to maintain adequate volume control. Currently creatinine stable at 2.3. Monitor closely with aggressive diuresis. Daily BMP. Tolerating diuresis thus far. May 2021 Ultrasound abdomen revealed cirrhosis with portal hypertension, splenomegaly and ascites. (5) Pulmonary hypertension: Code(s): I27.20 - Pulmonary hypertension, unspecified Status: Acute Assessment and Plan: History of moderate pulmonary hypertension RVSP 51 mm Hg by echo 05/2021 continued BiPAP for AMELIA treatment. (6) Essential (primary) hypertension: Code(s): I10 - Essential (primary) hypertension Status: Acute Assessment and Plan: BP stable somewhat labile. Continue minoxidil 10 mg daily, metoprolol 50 mg twice daily. (7) Anemia: Qualifiers: Anemia type: due to chronic kidney disease Chronic kidney disease stage: stage 3 (moderate) Chronic kidney disease
--- NOTE | 2022-04-22 15:07 | PM.IMPN ---
Progress Note: A&P Assessment and Plan (1) Fever: Code(s): R50.9 - Fever, unspecified Status: Acute Assessment and Plan: Patient had low grade fever on 04/19. CRP normal. LE venous doppler negative for DVT. CXR reviewed personally and the lung owlf are clear without infiltrate (radiology concurs). UA clear. CT A/P results reviewed personally showing bilateral pleural effusions and mild splenomegaly but no clear etiology of his persistent abdominal pain. +BMs. Fever has not recurred. Continue to monitor. (2) Acute on chronic congestive heart failure: Qualifiers: Heart failure type: right-sided Qualified Code(s): I50.813 - Acute on chronic right heart failure Code(s): I50.9 - Heart failure, unspecified Status: Acute Assessment and Plan: Echo EF 60-65%, moderate pulm HTN, both atria severely enlarged, right ventricle function severely reduced. BNP 5560. IV diuresis with good results with Bumex. Cumulative fluid balance -27L. Still edematous despite this. Monitoring potential concerns for JENA. Potassium has been low from the Bumex at times Appreciate cardiology and Nephrology input Potassium low again so will replace potassium Cont to monitor with serial labs (3) Chronic kidney disease: Code(s): N18.9 - Chronic kidney disease, unspecified Status: Acute Assessment and Plan: Cr was stable in the 2.0 range but up slightly to 2.3. Patient is still not at dry weight however. Appreciate nephrology consultation. He may be getting close to a dry intravascular volume Continue to monitor. Continue Bumex IV (4) Fall from ground level: Code(s): W18.30XA - Fall on same level, unspecified, initial encounter Status: Acute Assessment and Plan: Slid down landing on his buttocks. No head injury. Continue PT/OT. Increase time out of bed as patient allows. (5) Chronic acquired lymphedema: Code(s): I89.0 - Lymphedema, not elsewhere classified Status: Acute Assessment and Plan: Worsened from CHF and improving slowly with diuresis. (6) Chronic anemia: Code(s): D64.9 - Anemia, unspecified Status: Acute Assessment and Plan: Baseline Hgb 9-11 Hgb stable at 9.7 Chronic anemia probably related to CKD Follow (7) Obstructive sleep apnea: Code(s): G47.33 - Obstructive sleep apnea (adult) (pediatric) Status: Chronic Assessment and Plan: No signs of hypoxia noted on the [facility] when the test was done with home unit in place and on 4L. Patient is compliant with BiPAP. Continue the same here. (8) Atrial fibrillation: Qualifiers: Atrial fibrillation type: longstanding persistent Qualified Code(s): I48.11 - Longstanding persistent atrial fibrillation Code(s): I48.91 - Unspecified atrial fibrillation Status: Acute Assessment and Plan: EKG showing chronic AFib. Patient's rate controlled. Continue Eliquis. Continue metoprolol for rate control. Okay to stop tele Plan DVT prophylaxis with Eliquis Code status full code Subjective Date/time seen: 04/22/22 15:07 Interval history: 72yo male with CHF, AFib, lymphedema and CKD here for fall and found to have CHF exacerbation. No issues overnight. Feels tired. SOB last night prior to bed but resolved once he had BiPAP on and was able to relax. No CP. He feels 'achy' all over. Abd pain unchanged Exam Narrative: AF 128/61 54 20 97% ra Gen - NARD lying almost flat in bed Chest - distant but clear BS, nml RR CV - Irregularly irregular. S1-S2. telemetry showing afib but no significant dysrhythmias Abd - Soft. Obese. Positive bowel sounds. Diffuse tenderness with guarding. Bilateral flank pitting edema. Ext - Bilateral severe lymphedema. Psych - depressed mood Skin - Chronic venous stasis skin changes bilateral lower extremities. wrinkling noted in bilateral lower extremities.
[2022-04-22] MEDS: metOLazone 5 MG TABLET PO (17:48)
[2022-04-23] VITALS (11 sets, daily range): BP systolic 101–145; BP diastolic 44–70; PULSE 52–110; RESP 16–20; TEMP 36.3–36.6; O2SAT 93–98
[2022-04-23] MEDS: LEVOTHYROXINE SODIUM 100 MCG TABLET 200 MCG PO (05:29)
[2022-04-23 06:49] LABS: Basophils Absolute Auto 0.1 K/mm3 (0.0-0.1); Basophils Percent Auto 1.5 % (0.2-1.2); Eosinophils Absolute Auto 0.5 K/mm3 (0-0.3); Eosinophils Percent Auto 7.6 % (0-4.4); Hematocrit 35.9 % (42.0-52.0); Hemoglobin 9.7 g/dL (14.0-18.0); Immature Granulocyte Absolute 0.02 K/mm3 (0.00-0.031); Immature Granulocyte Percent A 0.3 % (0-0.5); Lymphocytes Absolute Auto 0.65 K/mm3 (0.9-3.2); Lymphocytes Percent Auto 9.9 % (18.3-44.2); Mean Corpuscular Hemoglobin 23.3 pg (26-34); Mean Corpuscular Volume 86.3 fl (80-100); Mean Platelet Volume 10.5 fl (7.4-10.4); Monocytes Absolute Auto 0.7 K/mm3 (0.1-0.6); Monocytes Percent Auto 10.7 % (2.6-8.5); Neutrophils Absolute Auto 4.6 K/mm3 (1.3-6.7); Platelet Count Result 266 k/mm3 (150-375); Red Blood Count 4.16 M/mm3 (4.6-6.20); Red Cell Distribution Width 17.7 % (11.5-14.5); White Blood Count 6.6 K/mm3 (4.5-10.0)
[2022-04-23 07:02] LABS: Alanine Aminotransferase 11 U/L (6-50); Albumin Level 3.1 g/dL (3.5-5.1); Alkaline Phosphatase 47 U/L (38-126); Anion Gap 6 mmol/L (8-16); Aspartate Amino Transferase 20 U/L (17-59); Bilirubin,Total 0.8 mg/dL (0.2-1.3); Blood Urea Nitrogen 33 mg/dL (9-20); Carbon Dioxide 32 mmol/L (22-30); Chloride 100 mmol/L (98-107); Estimated CRCL calculation 44 ml/min; Estimated Glomerular Filt Rate 29; Glucose 98 mg/dL (65-110); Potassium 3.2 mmol/L (3.4-5.0); Sodium 138 mmol/L (137-145)
[2022-04-23 07:19] LABS: Anisocytosis 1+ (NORMAL); Hypochromasia 1+ (NORMAL); Ovalocytes 1+ (NORMAL); Platelet Estimate Adequate (Adequate)
[2022-04-23 07:20] LABS: Schistocytes None Seen (NORMAL)
--- NOTE | 2022-04-23 08:19 | PM.PNCARD ---
Progress Note: A&P Assessment and Plan (1) Acute on chronic congestive heart failure: Qualifiers: Heart failure type: right-sided Qualified Code(s): I50.813 - Acute on chronic right heart failure Code(s): I50.9 - Heart failure, unspecified Status: Acute Assessment and Plan: Acute on chronic right heart failure with preserved left ventricular systolic function, EF 60-65%. He also has moderate pulmonary hypertension, PASP 51 mmHg. Low sodium diet, strict I/Os, daily weights. Fluid balance ~30L negative but patient remains significantly volume overloaded. Continue close monitoring of renal function and electrolytes. Delicate balance with regards to diuresis and maintenance renal function. Electrolytes, BUN/Cr remain stable today. Has diuresed very well but remains volume overloaded. Continue Bumex 2mg IV TID for heart failure. Patient persistently hypokalemic. Increase potassium supplementation. May consider addition of spironolactone as suggested by Nephrology. If hypokalemic in a.m. reasonable to start spironolactone if SCR improved. Continue with Acetazolamide 500 mg 3 times daily for heart failure. Metolazone p.r.n. (2) Atrial fibrillation: Qualifiers: Atrial fibrillation type: longstanding persistent Qualified Code(s): I48.11 - Longstanding persistent atrial fibrillation Code(s): I48.91 - Unspecified atrial fibrillation Status: Acute Assessment and Plan: Heart rate controlled. Apixaban 5mg BID for CVA risk reduction. Continue metoprolol 50 mg twice daily for heart rate control. Need to keep potassium closer to 4.0. More aggressive potassium supplementation. May discontinue telemetry once potassium conistently stabilized. (3) Hypokalemia: Code(s): E87.6 - Hypokalemia Status: Resolved Assessment and Plan: As above remains persistently hypokalemic secondary to aggressive diuresis. Increase potassium supplementation with degree of diuresis. (4) Chronic kidney disease: Code(s): N18.9 - Chronic kidney disease, unspecified Status: Acute Assessment and Plan: Minimize nephrotoxic agents. History of acute on chronic baseline stage 3 chronic kidney disease baseline creatinine is around 1.5 but likely will need to establish higher baseline to maintain adequate volume control. SCR slightly higher today, 2.5. Continue daily BMP. (5) Pulmonary hypertension: Code(s): I27.20 - Pulmonary hypertension, unspecified Status: Acute Assessment and Plan: History of moderate pulmonary hypertension RVSP 51 mm Hg by echo 05/2021 continued BiPAP for AMELIA treatment. (6) Essential (primary) hypertension: Code(s): I10 - Essential (primary) hypertension Status: Acute Assessment and Plan: BP stable somewhat labile. Continue minoxidil 10 mg daily, metoprolol 50 mg twice daily. (7) Anemia: Qualifiers: Anemia type: due to chronic kidney disease Chronic kidney disease stage: stage 3 (moderate) Chronic kidney disease stage 3 subtype: unspecified whether 3a or 3b Qualified Code(s): N18.30 - Chronic kidney disease, stage 3 unspecified; D63.1 - Anemia in chronic kidney disease Code(s): D64.9 - Anemia, unspecified Status: Acute Assessment and Plan: H&H stable. No evidence for active bleed. Continue to follow. (8) Obstructive sleep apnea: Code(s): G47.33 - Obstructive sleep apnea (adult) (pediatric) Status: Chronic Assessment and Plan: Encouraged complaince with BiPAP (9) Fall from ground level: Code(s): W18.30XA - Fall on same level, unspecified, initial encounter Status: Acute Assessment and Plan: Per patient report, secondary to weakness. PT/OT. He will need rehabilitation. Subjective Date/time seen: 04/23/22 08:19 Interval history: Reason for visit: Decompensated right heart failure, atrial fibrillation HPI: Mr. Clemens
[2022-04-23] MEDS: PERFLUTREN LIPID MICROSPHERES 1.5 ML VIAL DILUTED TO 10 ML TOTAL VOLUME IV PUSH (08:45)
[2022-04-23] MEDS: GABAPENTIN 300 MG CAPSULE PO ×3 (09:03→17:57)
[2022-04-23] MEDS: POTASSIUM CHLORIDE 20 MEQ TABLET.ER 40 MEQ PO ×2 (09:04→17:58)
[2022-04-23] MEDS: ASPIRIN 81 MG ENTERIC TABLET PO (09:04)
[2022-04-23] MEDS: FERROUS SULFATE 324 MG TABLET PO (09:07)
[2022-04-23] MEDS: TAMSULOSIN HCL 0.4 MG CAPSULE PO (09:07)
[2022-04-23] MEDS: LORATADINE 10 MG TABLET PO (09:07)
[2022-04-23] MEDS: PANTOPRAZOLE 40 MG TABLET PO (09:07)
[2022-04-23] MEDS: polyethylene glycoL 3350 17 GM POWD.PACK PO (09:08)
[2022-04-23] MEDS: APIXABAN 5 MG TABLET PO ×2 (09:08→20:56)
[2022-04-23] MEDS: BUMETANIDE INJ 2.5 MG/10 ML VIAL 2 MG IV PUSH ×3 (09:08→17:57)
--- NOTE | 2022-04-23 09:08 | IVDEFINITY ---
Prior to administration of IV Definity the patient was educated on the risks and benefits of the imaging enhancing agent including potential adverse side effects. The patient verbalized understanding. Allergies were verified. No exclusion criteria were identified and at least one of the following inclusion criteria were met: 1) physician request, 2) patient technically difficult to image (per the [place] [employer] guidelines of two or more segments not discernable within the apical view), or 3) questionable left ventricular function. ?
[2022-04-23] MEDS: EUCERIN CREAM 454 GM JAR 1 APPLIC TOPICAL ×2 (09:17→21:02)
[2022-04-23] MEDS: FLUTICASONE PROPIONATE 0.05% NA SPR 16 GM BTL (*BKC) 1 SPRAY NASAL (09:18)
[2022-04-23] MEDS: METOPROLOL TARTRATE 50 MG TAB PO ×2 (09:45→20:59)
--- NOTE | 2022-04-23 10:49 | PM.PNNEP ---
Progress Note: A&P Assessment and Plan (1) JENA (acute kidney injury): Code(s): N17.9 - Acute kidney failure, unspecified Status: Acute Assessment and Plan: fluctuations as noted... multiple issues contributing to his elevated creatinine: complex hemodynamics related to his vasculature volume overload possible renal venous hypertension need for diuretic therapy continue diuresis as tolerated on bumex 2mg IV tid on acetazolamide 500mg po tid metolazone PRN consider spironolactone given hypokalemia if continues to persist follow repeat labs and UOP (2) Chronic kidney disease, stage 3: Code(s): N18.30 - Chronic kidney disease, stage 3 unspecified Status: Chronic Assessment and Plan: baseline creatinine runs ~ 1.4 - 1.7mg/dl this causes him to fluctuate between CKD stage 3A and stage 3B due to hypertension and chronic pre renal azotemia due to his poorly functioning heart (3) Fever: Code(s): R50.9 - Fever, unspecified Status: Acute Assessment and Plan: etiology work-up so far negative follow symptoms (4) Acute on chronic congestive heart failure: Qualifiers: Heart failure type: right-sided Qualified Code(s): I50.813 - Acute on chronic right heart failure Code(s): I50.9 - Heart failure, unspecified Status: Acute Assessment and Plan: due to right sided heart failure complicated by moderate pulmonary HTN continue aggressive IV diuretic therapy almost 30L negative since admission(!) (5) Obstructive sleep apnea: Code(s): G47.33 - Obstructive sleep apnea (adult) (pediatric) Status: Chronic Assessment and Plan: continue CPAP therapy reports compliance at home (6) Fall from ground level: Code(s): W18.30XA - Fall on same level, unspecified, initial encounter Status: Acute Assessment and Plan: 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 Subjective Date/time seen: 04/23/22 10:49 In spite of all interventions to date, he still has achiness in general and still with on/off shortness of breath; admits that he has not been really moving much out of bed; no other acute complaints voiced; no events overnight or earlier this AM. Exam Narrative: General: Large WD/WN male in NAD Heart: normal S1 and S2; no rub Lungs: clear but decreased at bases Abdomen: soft, nontender, nondistended, positive bowel sounds Extremities: no cyanosis or clubbing; 2+ edema Skin: chronic changes apparent Objective Data Vital Signs Vital Signs: Vital Signs Temp Pulse Resp BP Pulse Ox O2 Del Method 04/23/22 08:00 97.3 F L 52 L 20 118/54 L 94 04/23/22 09:45 102 H 04/23/22 05:36 97.3 F L 102 H 18 109/44 L 98 04/23/22 01:35 97.9 F 110 H 16 130/70 95 04/22/22 20:00 97.9 F 107 H 16 127/65 94 04/22/22 20:00 Room Air 04/22/22 21:58 107 H 04/22/22 16:00 54 L 04/22/22 12:00 59 L 04/22/22 14:00 98.6 F 54 L 20 128/61 97 04/22/22 12:28 85 152/66 H 04/22/22 12:27 85 Intake/Output Intake/Output: Intake & Output 04/20/22 04/21/22 04/22/22 04/23/22 23:59 23:59 23:59 23:59 Intake Total 1470 1182 922 120 Output Total 4250 5777 3566 187 [facility] -[id number] [phone] Meds/Results Medications: Active Medications Generic Name Dose Route Start Last Admin Trade Name Marcosq PRN Reason Stop Dose Admin Acetaminophen 1,000 mg 04/11/22 23:42 04/21/22 20:38 Acetaminophen 500 Mg Tablet PO 1,000 mg Q6H PRN Administration Pain Rated 1-3 Acetazolamide 500 mg 04/21/22 13:00 04/23/22 09:06 Acetazolamide Tab 250 Mg Tablet PO Not Given TID ANGELA Apixaban 5 mg 04/12/22 09:00 04/23/22 09:08 Apixaban 5 Mg Tablet PO 5 mg Q12HR ANGELA Administration Aspirin 81 mg 04/12/22 09:00 04/23/22 09:04 Aspirin 81 Mg Enteric Tablet PO 81 mg DAILY [facility] Administ
--- NOTE | 2022-04-23 10:49 | P.PNNP_ITS ---
Progress Note: A&P Assessment and Plan (1) JENA (acute kidney injury): Code(s): N17.9 - Acute kidney failure, unspecified Status: Acute Assessment and Plan: * fluctuations as noted... * multiple issues contributing to his elevated creatinine: * complex hemodynamics related to his vasculature * volume overload * possible renal venous hypertension * need for diuretic therapy * continue diuresis as tolerated * on bumex 2mg IV tid * on acetazolamide 500mg po tid * metolazone PRN * consider spironolactone given hypokalemia if continues to persist * follow repeat labs and UOP (2) Chronic kidney disease, stage 3: Code(s): N18.30 - Chronic kidney disease, stage 3 unspecified Status: Chronic Assessment and Plan: * baseline creatinine runs ~ 1.4 - 1.7mg/dl * this causes him to fluctuate between CKD stage 3A and stage 3B * due to hypertension and chronic pre renal azotemia due to his poorly functioning heart (3) Fever: Code(s): R50.9 - Fever, unspecified Status: Acute Assessment and Plan: * etiology * work-up so far negative * follow symptoms (4) Acute on chronic congestive heart failure: Qualifiers: Heart failure type: right-sided Qualified Code(s): I50.813 - Acute on chronic right heart failure Code(s): I50.9 - Heart failure, unspecified Status: Acute Assessment and Plan: * due to right sided heart failure complicated by moderate pulmonary HTN * continue aggressive IV diuretic therapy * almost 30L negative since admission(!) (5) Obstructive sleep apnea: Code(s): G47.33 - Obstructive sleep apnea (adult) (pediatric) Status: Chronic Assessment and Plan: * continue CPAP therapy * reports compliance at home (6) Fall from ground level: Code(s): W18.30XA - Fall on same level, unspecified, initial encounter Status: Acute Assessment and Plan: * 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 Subjective Date/time seen: 04/23/22 10:49 In spite of all interventions to date, he still has achiness in general and still with on/off shortness of breath; admits that he has not been really moving much out of bed; no other acute complaints voiced; no events overnight or earlier this AM. Exam Narrative: General: Large WD/WN male in NAD Heart: normal S1 and S2; no rub Lungs: clear but decreased at bases Abdomen: soft, nontender, nondistended, positive bowel sounds Extremities: no cyanosis or clubbing; 2+ edema Skin: chronic changes apparent Objective Data Vital Signs Vital Signs: Vital Signs Temp Pulse Resp BP Pulse Ox O2 Del Method 04/23/22 08:00 97.3 F L 52 L 20 118/54 L 94 04/23/22 09:45 102 H 04/23/22 05:36 97.3 F L 102 H 18 109/44 L 98 04/23/22 01:35 97.9 F 110 H 16 130/70 95 04/22/22 20:00 97.9 F 107 H 16 127/65 94 04/22/22 20:00 Room Air 04/22/22 21:58 107 H 04/22/22 16:00 54 L 04/22/22 12:00 59 L 04/22/22 14:00 98.6 F 54 L 20 128/61 97 04/22/22 12:28 85 152/66 H 04/22/22 12:27 85 Intake/Output Intake/Output: Intake & Output 04/20/22 04/21/22 04/22/22 04/23/22 23:59 23:59 23:59
--- NOTE | 2022-04-23 11:41 | PM.IMPN ---
Progress Note: A&P Assessment and Plan (1) Acute on chronic congestive heart failure: Qualifiers: Heart failure type: right-sided Qualified Code(s): I50.813 - Acute on chronic right heart failure Code(s): I50.9 - Heart failure, unspecified Status: Acute Assessment and Plan: Echo EF 65-70% with grade I diastolic dysfunction. BNP 5560. IV diuresis with good results with Bumex. Cumulative fluid balance -30L. Still edematous despite this. Monitoring potential concerns for JENA. Potassium has been low from the Bumex at times Appreciate cardiology and Nephrology input Potassium low again so will replace potassium Cont to monitor with serial labs (2) Chronic kidney disease: Code(s): N18.9 - Chronic kidney disease, unspecified Status: Acute Assessment and Plan: Cr was stable in the 2.0 range but up slightly to 2.2. Patient is still not at dry weight however. Appreciate nephrology consultation. He may be getting close to a dry intravascular volume given BP being soft Continue to monitor. Continue Bumex IV (3) Fall from ground level: Code(s): W18.30XA - Fall on same level, unspecified, initial encounter Status: Acute Assessment and Plan: Slid down landing on his buttocks. No head injury. Continue PT/OT. Increase time out of bed as patient allows. (4) Chronic acquired lymphedema: Code(s): I89.0 - Lymphedema, not elsewhere classified Status: Acute Assessment and Plan: Worsened from CHF and improving slowly with diuresis. (5) Chronic anemia: Code(s): D64.9 - Anemia, unspecified Status: Acute Assessment and Plan: Baseline Hgb 9-11 Hgb stable at 9.7 Chronic anemia probably related to CKD Follow (6) Obstructive sleep apnea: Code(s): G47.33 - Obstructive sleep apnea (adult) (pediatric) Status: Chronic Assessment and Plan: No signs of hypoxia noted on the ApneaLink when the test was done with home unit in place and on 4L. Patient is compliant with BiPAP. Continue the same here. (7) Atrial fibrillation: Qualifiers: Atrial fibrillation type: longstanding persistent Qualified Code(s): I48.11 - Longstanding persistent atrial fibrillation Code(s): I48.91 - Unspecified atrial fibrillation Status: Acute Assessment and Plan: EKG showing chronic AFib. Patient's rate controlled. Continue Eliquis. Continue metoprolol for rate control. (8) Fever: Code(s): R50.9 - Fever, unspecified Status: Acute Assessment and Plan: Patient had low grade fever on 04/19. CRP normal. LE venous doppler negative for DVT. CXR reviewed personally and the lung wolf are clear without infiltrate (radiology concurs). UA clear. CT A/P results reviewed personally showing bilateral pleural effusions and mild splenomegaly but no clear etiology of his persistent abdominal pain. +BMs. Fever has not recurred. Continue to monitor. Plan DVT prophylaxis with Eliquis Code status full code Subjective Date/time seen: 04/23/22 11:41 Interval history: 72yo male with CHF, AFib, lymphedema and CKD here for fall and found to have CHF exacerbation. Patient has sleeping well. He still feels pain and achiness all over. He feels abdominal pain is better. Has a headache today. Feels short of breath. He has not really been out of bed much at all. Patient was seen here in June for a fall found to have a distal femoral fracture was transferred to [facility] for surgery. Patient states since that time he is not been ambulatory for various reasons. Exam Narrative: AF 101/56 102 20 94% ra Gen - NARD sitting up eating breakfast. Chest - distant BS with faint crackles in the bases, nml RR CV - Irregularly irregular. Abd - Soft. Obese. Decreased tenderness. Bilateral flank pitting edema. Ext - Bilateral severe but improved lymphedema. Psych - depressed mood Skin
[2022-04-23] MEDS: POTASSIUM CHLORIDE 20 MEQ TABLET 40 MEQ PO (14:31)
--- NOTE | 2022-04-23 15:19 | ECHO_ITS ---
Patient Info Name: Irwin Cyr Age: 72 years : 1950 Gender: Male Ht: 73 in Wt: 376 lbs BSA: 3.05 m2 HR: 57 bpm BP: 109 / 44 mmHg Heart Rhythm: Sinus Rhythm Exam Date: 04/23/2022 8:02 AM Exam Location: 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 Summary 1. Technically difficult echocardiogram because of obesity, definity contrast injected. 2. Following contrast injection left ventricular function is noted to be well-preserved. 3. RV enlargement at least mild systolic dysfunction. 4. Poorly visualized cardiac valves/no obvious valvular dysfunction. 5. Massive obesity precludes further diagnostic information from being obtained. Left Ventricle Left ventricular chamber dimension is normal. Left ventricular systolic function is normal, estimated at 65-70%. The left ventricular diastolic function is grade I diastolic dysfunction. Right Ventricle Right ventricular chamber dimension is moderately enlarged. Right ventricular systolic function is reduced. Left Atria Left atrial chamber dimension is mildly enlarged. Right Atria Right atrial chamber dimension is not well visualized. Aortic Valve The aortic valve is trileaflet. Pulmonic Valve The pulmonic valve is not well visualized. Mitral Valve The mitral valve has normal leaflets. Tricuspid Valve The tricuspid valve leaflets are not well visualized. Pericardium/Pleural The pericardium appears normal. Aorta The aortic root size at the sinus of Valsalva is normal. Left Ventricular Outflow Tract Name Value Normal LVOT Doppler LVOT Peak Gradient 2 mmHg LVOT Mean Gradient 1 mmHg LVOT VTI 14.75 cm LVOT VTI/AV VTI Ratio 0.60 Mitral Valve Name Value Normal MV Doppler MV Peak Gradient 1 mmHg MV Mean Gradient 0 mmHg MV Decel Mercer 617.81 cm/s2 MV PHT 0 s MV Area (PHT) 3.82 cm2 4.00-5.00 MV Regurgitation Doppler MR Peak Gradient 65 mmHg MV Diastolic Function MV E Peak Velocity 122.64 cm/s MV A Peak Velocity 38.98 cm/s
[2022-04-23] MEDS: SENNA/DOCUSATE SODIUM TABLET 1 TAB PO (20:56)
[2022-04-23] MEDS: ACETAMINOPHEN 500 MG TABLET 1000 MG PO (21:00)
[2022-04-24] VITALS (7 sets, daily range): BP systolic 110–129; BP diastolic 51–75; PULSE 52–80; RESP 16–18; TEMP 35.5–36.8; O2SAT 94–100
[2022-04-24 06:41] LABS: Basophils Absolute Auto 0.1 K/mm3 (0.0-0.1); Basophils Percent Auto 1.8 % (0.2-1.2); Eosinophils Absolute Auto 0.5 K/mm3 (0-0.3); Eosinophils Percent Auto 8.3 % (0-4.4); Hematocrit 36.5 % (42.0-52.0); Immature Granulocyte Absolute 0.03 K/mm3 (0.00-0.031); Immature Granulocyte Percent A 0.5 % (0-0.5); Lymphocytes Absolute Auto 0.79 K/mm3 (0.9-3.2); Lymphocytes Percent Auto 12.8 % (18.3-44.2); Mean Corpuscular HGB Conc 27.4 g/dl (32-36); Mean Corpuscular Hemoglobin 23.4 pg (26-34); Mean Corpuscular Volume 85.3 fl (80-100); Mean Platelet Volume 11.5 fl (7.4-10.4); Monocytes Absolute Auto 0.7 K/mm3 (0.1-0.6); Monocytes Percent Auto 11.8 % (2.6-8.5); Neutrophils Percent Auto 64.8 % (45.5-73.1); Platelet Count Result 294 k/mm3 (150-375); Red Blood Count 4.28 M/mm3 (4.6-6.20); Red Cell Distribution Width 18.1 % (11.5-14.5); White Blood Count 6.2 K/mm3 (4.5-10.0)
[2022-04-24 06:49] LABS: Alanine Aminotransferase 11 U/L (6-50); Albumin Level 3.2 g/dL (3.5-5.1); Alkaline Phosphatase 45 U/L (38-126); Anion Gap 4 mmol/L (8-16); Aspartate Amino Transferase 21 U/L (17-59); Bilirubin,Total 0.9 mg/dL (0.2-1.3); Blood Urea Nitrogen 34 mg/dL (9-20); Calcium 8.4 mg/dL (8.4-10.2); Carbon Dioxide 37 mmol/L (22-30); Chloride 98 mmol/L (98-107); Estimated CRCL calculation 39 ml/min; Estimated Glomerular Filt Rate 25; Glucose 95 mg/dL (65-110); Magnesium 2.8 mg/dL (1.6-2.3); Phosphorus 4.5 mg/dL (2.5-4.5); Potassium 3.3 mmol/L (3.4-5.0); Sodium 139 mmol/L (137-145)
[2022-04-24] MEDS: LEVOTHYROXINE SODIUM 100 MCG TABLET 200 MCG PO (06:51)
[2022-04-24 06:58] LABS: Platelet Estimate Adequate (Adequate)
[2022-04-24 06:59] LABS: Anisocytosis 1+ (NORMAL); Ovalocytes 1+ (NORMAL); Schistocytes None Seen (NORMAL)
[2022-04-24] MEDS: polyethylene glycoL 3350 17 GM POWD.PACK PO (08:51)
[2022-04-24] MEDS: WATER FOR IRRIGATION, STERILE 1,000 ML BOTTLE 1000 ML (08:51)
[2022-04-24] MEDS: acetaZOLAMIDE TAB 250 MG TABLET 500 MG PO ×3 (08:51→16:24)
[2022-04-24] MEDS: minoxidiL 10 MG TABLET PO (08:52)
[2022-04-24] MEDS: POTASSIUM CHLORIDE 20 MEQ TABLET.ER 40 MEQ PO ×2 (08:53→16:24)
[2022-04-24] MEDS: LORATADINE 10 MG TABLET PO (08:53)
[2022-04-24] MEDS: FERROUS SULFATE 324 MG TABLET PO (08:53)
[2022-04-24] MEDS: GABAPENTIN 300 MG CAPSULE PO ×3 (08:53→16:24)
[2022-04-24] MEDS: PANTOPRAZOLE 40 MG TABLET PO (08:53)
[2022-04-24] MEDS: APIXABAN 5 MG TABLET PO ×2 (08:53→20:59)
[2022-04-24] MEDS: ASPIRIN 81 MG ENTERIC TABLET PO (08:54)
[2022-04-24] MEDS: BUMETANIDE INJ 2.5 MG/10 ML VIAL 2 MG IV PUSH ×3 (08:56→16:23)
[2022-04-24] MEDS: EUCERIN CREAM 454 GM JAR 1 APPLIC TOPICAL ×2 (08:56→20:58)
[2022-04-24] MEDS: FLUTICASONE PROPIONATE 0.05% NA SPR 16 GM BTL (*BKC) 1 SPRAY NASAL (08:56)
[2022-04-24] MEDS: TAMSULOSIN HCL 0.4 MG CAPSULE PO (08:59)
[2022-04-24] MEDS: METOPROLOL TARTRATE 50 MG TAB PO ×2 (08:59→20:59)
[2022-04-24] MEDS: ACETAMINOPHEN 500 MG TABLET 1000 MG PO ×2 (09:08→21:06)
--- NOTE | 2022-04-24 10:26 | P.PNNP_ITS ---
Progress Note: A&P Assessment and Plan (1) JENA (acute kidney injury): Code(s): N17.9 - Acute kidney failure, unspecified Status: Acute Assessment and Plan: * fluctuations as noted... * multiple issues contributing to his elevated creatinine: * complex hemodynamics related to his vasculature * volume overload * possible renal venous hypertension * need for diuretic therapy * continue diuresis as tolerated * on bumex 2mg IV tid * on acetazolamide 500mg po tid * metolazone PRN * consider spironolactone given hypokalemia if continues to persist * with his rise in creatinine today -- this may be a sign we maybe reaching our limit with diuresis (i.e. getting to a point of intravascular volume depletion in spite of external signs of fluid/volume overload) * follow repeat labs and UOP (2) Chronic kidney disease, stage 3: Code(s): N18.30 - Chronic kidney disease, stage 3 unspecified Status: Chronic Assessment and Plan: * baseline creatinine runs ~ 1.4 - 1.7mg/dl * this causes him to fluctuate between CKD stage 3A and stage 3B * due to hypertension and chronic pre renal azotemia due to his poorly functioning heart (3) Fever: Code(s): R50.9 - Fever, unspecified Status: Acute Assessment and Plan: * etiology * work-up so far negative * follow symptoms (4) Acute on chronic congestive heart failure: Qualifiers: Heart failure type: right-sided Qualified Code(s): I50.813 - Acute on chronic right heart failure Code(s): I50.9 - Heart failure, unspecified Status: Acute Assessment and Plan: * due to right sided heart failure complicated by moderate pulmonary HTN * continue aggressive IV diuretic therapy * almost 32.5L negative since admission -- almost 71 pounds (!) (5) Obstructive sleep apnea: Code(s): G47.33 - Obstructive sleep apnea (adult) (pediatric) Status: Chronic Assessment and Plan: * continue CPAP therapy * reports compliance at home (6) Fall from ground level: Code(s): W18.30XA - Fall on same level, unspecified, initial encounter Status: Acute Assessment and Plan: * 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 Subjective Date/time seen: 04/24/22 10:26 Still diuresing but creatinine up a bit by AM labs; no apparent distress voiced at the time of my visit; still with generalized discomfort but no worse that previously; no other acute complaints to report. Exam Narrative: General: Large WD/WN male in NAD Heart: normal S1 and S2; no rub Lungs: clear but decreased at bases Abdomen: soft, nontender, nondistended, positive bowel sounds Extremities: no cyanosis or clubbing; 2+ edema Skin: chronic changes apparent Objective Data Vital Signs Vital Signs: Vital Signs Temp Pulse Resp BP Pulse Ox O2 Del Method 04/24/22 08:50 Room Air 04/24/22 08:59 52 L 04/23/22 20:00 97.7 F 80 16 139/52 L 93 04/24/22 06:00 96 F L 53 L 16 112/51 L 100 04/23/22 22:00 97.7 F 80 16 116/48 L 93 04/23/22 20:00 97.7 F 75 16 145/54 H 93 04/24/22 02:52 77 94 Room Air 04/23/22 20:00 95 Room Air 04/23/22 22:35 84 95 Room Air 04/23/22 20:59 72 04/23/22 20:55 97.7 F 72 18 116/48 L 93 04/23/22 14:00
--- NOTE | 2022-04-24 10:26 | PM.PNNEP ---
Progress Note: A&P Assessment and Plan (1) JENA (acute kidney injury): Code(s): N17.9 - Acute kidney failure, unspecified Status: Acute Assessment and Plan: fluctuations as noted... multiple issues contributing to his elevated creatinine: complex hemodynamics related to his vasculature volume overload possible renal venous hypertension need for diuretic therapy continue diuresis as tolerated on bumex 2mg IV tid on acetazolamide 500mg po tid metolazone PRN consider spironolactone given hypokalemia if continues to persist with his rise in creatinine today -- this may be a sign we maybe reaching our limit with diuresis (i.e. getting to a point of intravascular volume depletion in spite of external signs of fluid/volume overload) follow repeat labs and UOP (2) Chronic kidney disease, stage 3: Code(s): N18.30 - Chronic kidney disease, stage 3 unspecified Status: Chronic Assessment and Plan: baseline creatinine runs ~ 1.4 - 1.7mg/dl this causes him to fluctuate between CKD stage 3A and stage 3B due to hypertension and chronic pre renal azotemia due to his poorly functioning heart (3) Fever: Code(s): R50.9 - Fever, unspecified Status: Acute Assessment and Plan: etiology work-up so far negative follow symptoms (4) Acute on chronic congestive heart failure: Qualifiers: Heart failure type: right-sided Qualified Code(s): I50.813 - Acute on chronic right heart failure Code(s): I50.9 - Heart failure, unspecified Status: Acute Assessment and Plan: due to right sided heart failure complicated by moderate pulmonary HTN continue aggressive IV diuretic therapy almost 32.5L negative since admission -- almost 71 pounds (!) (5) Obstructive sleep apnea: Code(s): G47.33 - Obstructive sleep apnea (adult) (pediatric) Status: Chronic Assessment and Plan: continue CPAP therapy reports compliance at home (6) Fall from ground level: Code(s): W18.30XA - Fall on same level, unspecified, initial encounter Status: Acute Assessment and Plan: 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 Subjective Date/time seen: 04/24/22 10:26 Still diuresing but creatinine up a bit by AM labs; no apparent distress voiced at the time of my visit; still with generalized discomfort but no worse that previously; no other acute complaints to report. Exam Narrative: General: Large WD/WN male in NAD Heart: normal S1 and S2; no rub Lungs: clear but decreased at bases Abdomen: soft, nontender, nondistended, positive bowel sounds Extremities: no cyanosis or clubbing; 2+ edema Skin: chronic changes apparent Objective Data Vital Signs Vital Signs: Vital Signs Temp Pulse Resp BP Pulse Ox O2 Del Method 04/24/22 08:50 Room Air 04/24/22 08:59 52 L 04/23/22 20:00 97.7 F 80 16 139/52 L 93 04/24/22 06:00 96 F L 53 L 16 112/51 L 100 04/23/22 22:00 97.7 F 80 16 116/48 L 93 04/23/22 20:00 97.7 F 75 16 145/54 H 93 04/24/22 02:52 77 94 Room Air 04/23/22 20:00 95 Room Air 04/23/22 22:35 84 95 Room Air 04/23/22 20:59 72 04/23/22 20:55 97.7 F 72 18 116/48 L 93 04/23/22 14:00 97.6 F 53 L 20 104/53 L 95 04/23/22 11:10 101/56 L Intake/Output Intake/Output: Intake & Output 04/21/22 04/22/22 04/23/22 04/24/22 23:59 23:59 23:59 23:59 Intake Total 1182 922 360 240 Output Total 4123 6382 9176 2100 [facility] -[phone] -[phone] -[phone] -[id number] Meds/Results Medications: Active Medications Generic Name Dose Route Start Last Admin Trade Name Freq PRN Reason Stop Dose Admin Acetaminophen 1,000 mg 04/11/22 23:42 04/24/22 09:08 Acetaminophen 500 Mg Tablet PO 1,000 mg Q6H PRN Administration Pain Rated 1-3 Acetazolamide 500 mg 04/21/22 13:00 04/24/22 08:51 Acetazolamide Tab 250 Mg Tablet PO
[2022-04-24] MEDS: POTASSIUM CHLORIDE 20 MEQ TABLET 40 MEQ PO (12:20)
--- NOTE | 2022-04-24 14:53 | PC.NURSE ---
AWILDA Holloway bladder scanned patient and informed me that the reading received was 243cc of urine.
--- NOTE | 2022-04-24 15:53 | PM.IMPN ---
Progress Note: A&P Assessment and Plan (1) Acute on chronic congestive heart failure: Qualifiers: Heart failure type: right-sided Qualified Code(s): I50.813 - Acute on chronic right heart failure Code(s): I50.9 - Heart failure, unspecified Status: Acute Assessment and Plan: Echo EF 65-70% with grade I diastolic dysfunction. BNP 5560. IV diuresis with good results with Bumex. Cumulative fluid balance -30L. Still edematous despite this. Monitoring potential concerns for JENA. Potassium has been low from the Bumex at times Appreciate cardiology and Nephrology input Potassium low again so will replace potassium Cont to monitor with serial labs (2) Chronic kidney disease: Code(s): N18.9 - Chronic kidney disease, unspecified Status: Acute Assessment and Plan: Cr was stable in the 2.0 range but up to 2.5. Patient is still not at dry weight however. Appreciate nephrology consultation. He may be getting close to a dry intravascular volume given BP being soft Continue to monitor. Continue Bumex IV and acetazolamide. (3) Fall from ground level: Code(s): W18.30XA - Fall on same level, unspecified, initial encounter Status: Acute Assessment and Plan: Slid down landing on his buttocks. No head injury. Continue PT/OT. Increase time out of bed as patient allows. (4) Chronic acquired lymphedema: Code(s): I89.0 - Lymphedema, not elsewhere classified Status: Acute Assessment and Plan: Worsened from CHF and improving slowly with diuresis. (5) Chronic anemia: Code(s): D64.9 - Anemia, unspecified Status: Acute Assessment and Plan: Baseline Hgb 9-11 Hgb stable at 9-10 range now Chronic anemia probably related to CKD Follow (6) Obstructive sleep apnea: Code(s): G47.33 - Obstructive sleep apnea (adult) (pediatric) Status: Chronic Assessment and Plan: No signs of hypoxia noted on the ApneaLink when the test was done with home unit in place and on 4L. Patient is compliant with BiPAP. Continue the same here. (7) Atrial fibrillation: Qualifiers: Atrial fibrillation type: longstanding persistent Qualified Code(s): I48.11 - Longstanding persistent atrial fibrillation Code(s): I48.91 - Unspecified atrial fibrillation Status: Acute Assessment and Plan: EKG showing chronic AFib. Patient's rate controlled. Continue Eliquis. Continue metoprolol for rate control. (8) Fever: Code(s): R50.9 - Fever, unspecified Status: Acute Assessment and Plan: Patient had low grade fever on 04/19. CRP normal. LE venous doppler negative for DVT. CXR reviewed personally and the lung wolf are clear without infiltrate (radiology concurs). UA clear. CT A/P results reviewed personally showing bilateral pleural effusions and mild splenomegaly but no clear etiology of his persistent abdominal pain. +BMs. Fever has not recurred. Continue to monitor. Plan DVT prophylaxis with Eliquis Code status full code Subjective Date/time seen: 04/24/22 15:53 Interval history: 72yo male with CHF, AFib, lymphedema and CKD here for fall and found to have CHF exacerbation. patient with persistent abdominal pain. Having bowel movements. Eating well. No nausea or vomiting. He is still not wanting to get out of bed. Exam Narrative: AF 110/55 52 18 96% ra Gen - NARD almost flat in bed Chest - minimal crackles in the bases o/w clear, nml RR CV - Irregularly irregular. Abd - Soft. Obese. Decreased tenderness. Bilateral flank pitting edema that is improved. Ext - Bilateral improving edema. Psych - depressed mood Skin - Chronic venous stasis skin changes bilateral lower extremities with dark scale and cobblestoning. wrinkling noted in bilateral lower extremities. Objective Data Vital Signs Vital Signs: Vital Signs - 24 hr 04/23/22 20:55 04/02
[2022-04-24] MEDS: SENNA/DOCUSATE SODIUM TABLET 1 TAB PO (20:59)
[2022-04-25] VITALS (8 sets, daily range): BP systolic 112–160; BP diastolic 55–75; PULSE 54–80; RESP 14–18; TEMP 36.3–36.7; O2SAT 94–100
[2022-04-25] MEDS: LEVOTHYROXINE SODIUM 100 MCG TABLET 200 MCG PO (06:12)
[2022-04-25 06:25] LABS: Basophils Absolute Auto 0.1 K/mm3 (0.0-0.1); Basophils Percent Auto 1.6 % (0.2-1.2); Eosinophils Absolute Auto 0.5 K/mm3 (0-0.3); Eosinophils Percent Auto 8.5 % (0-4.4); Hematocrit 37.9 % (42.0-52.0); Hemoglobin 10.3 g/dL (14.0-18.0); Immature Granulocyte Absolute 0.02 K/mm3 (0.00-0.031); Immature Granulocyte Percent A 0.3 % (0-0.5); Lymphocytes Absolute Auto 0.68 K/mm3 (0.9-3.2); Mean Corpuscular HGB Conc 27.2 g/dl (32-36); Mean Corpuscular Hemoglobin 23.6 pg (26-34); Mean Corpuscular Volume 86.9 fl (80-100); Monocytes Absolute Auto 0.7 K/mm3 (0.1-0.6); Monocytes Percent Auto 11.6 % (2.6-8.5); Neutrophils Absolute Auto 4.2 K/mm3 (1.3-6.7); Platelet Count Result 301 k/mm3 (150-375); Red Blood Count 4.36 M/mm3 (4.6-6.20); Red Cell Distribution Width 18.1 % (11.5-14.5); White Blood Count 6.2 K/mm3 (4.5-10.0)
[2022-04-25 06:41] LABS: Alanine Aminotransferase 12 U/L (6-50); Albumin Level 3.3 g/dL (3.5-5.1); Alkaline Phosphatase 49 U/L (38-126); Anion Gap 8 mmol/L (8-16); Aspartate Amino Transferase 23 U/L (17-59); Bilirubin,Total 0.8 mg/dL (0.2-1.3); Blood Urea Nitrogen 36 mg/dL (9-20); Calcium 8.4 mg/dL (8.4-10.2); Carbon Dioxide 34 mmol/L (22-30); Chloride 99 mmol/L (98-107); Estimated CRCL calculation 41 ml/min; Estimated Glomerular Filt Rate 28; Glucose 96 mg/dL (65-110); Potassium 3.1 mmol/L (3.4-5.0); Sodium 141 mmol/L (137-145)
[2022-04-25 07:10] LABS: Anisocytosis 1+ (NORMAL); Ovalocytes 1+ (NORMAL); Platelet Estimate Adequate (Adequate); Schistocytes None Seen (NORMAL)
[2022-04-25 07:41] LABS: Glucose Point of Care 100 mg/dl (65-105)
--- NOTE | 2022-04-25 08:38 | PM.IMPN ---
Progress Note: A&P Assessment and Plan (1) Acute on chronic congestive heart failure: Qualifiers: Heart failure type: right-sided Qualified Code(s): I50.813 - Acute on chronic right heart failure Code(s): I50.9 - Heart failure, unspecified Status: Acute Assessment and Plan: Continuing to diurese well, much improved, appreciate cardiology consultation (2) Chronic kidney disease: Code(s): N18.9 - Chronic kidney disease, unspecified Status: Acute Assessment and Plan: Appreciate nephrology consultation, slowly routine dry weight, continue diuresis for now (3) Fall from ground level: Code(s): W18.30XA - Fall on same level, unspecified, initial encounter Status: Acute Assessment and Plan: Slid down landing on his buttocks. No head injury. Continue PT/OT. Increase time out of bed as patient allows. (4) Chronic acquired lymphedema: Code(s): I89.0 - Lymphedema, not elsewhere classified Status: Acute Assessment and Plan: Worsened from CHF and improving slowly with diuresis. (5) Chronic anemia: Code(s): D64.9 - Anemia, unspecified Status: Acute Assessment and Plan: Baseline Hgb 9-11 Hgb stable at 9-10 range now Chronic anemia probably related to CKD Follow (6) Obstructive sleep apnea: Code(s): G47.33 - Obstructive sleep apnea (adult) (pediatric) Status: Chronic Assessment and Plan: No signs of hypoxia noted on the ApneaLink when the test was done with home unit in place and on 4L. Patient is compliant with BiPAP. Continue the same here. (7) Atrial fibrillation: Qualifiers: Atrial fibrillation type: longstanding persistent Qualified Code(s): I48.11 - Longstanding persistent atrial fibrillation Code(s): I48.91 - Unspecified atrial fibrillation Status: Acute Assessment and Plan: EKG showing chronic AFib. Patient's rate controlled. Continue Eliquis. Continue metoprolol for rate control. (8) Fever: Code(s): R50.9 - Fever, unspecified Status: Acute Assessment and Plan: Patient had low grade fever on 04/19. CRP normal. LE venous doppler negative for DVT. CXR reviewed personally and the lung owlf are clear without infiltrate (radiology concurs). UA clear. CT A/P results reviewed personally showing bilateral pleural effusions and mild splenomegaly but no clear etiology of his persistent abdominal pain. +BMs. Fever has not recurred. Continue to monitor. Plan DVT prophylaxis with Eliquis Code status full code Subjective Date/time seen: 04/25/22 08:38 Interval history: 72yo male with CHF, AFib, lymphedema and CKD here for fall and found to have CHF exacerbation. No overnight events noted. No chest pain or shortness of breath. No nausea, vomiting or diarrhea. No fevers or chills. Patient feeling much better than yesterday. He has been up to the chair and to the bedside commode several times. Review of Systems Review of Systems: 12 point review of systems was assessed and was negative except as noted in the HPI Exam Narrative: General: No acute distress, alert and oriented per baseline HEENT: Atraumatic, normocephalic, mucous membranes moist CV: Regular rate and rhythm, S1, S2 Lungs: Clear to auscultation bilaterally, no rales or crackles noted, no wheezes, good air entry Abdomen: Soft, nontender, nondistended Extremities: Anasarca significantly improved, still with some edema in his abdomen and lower extremities Psych: Euthymic, normal affect Objective Data Vital Signs Vital Signs: Vital Signs - 24 hr 04/24/22 08:59 04/24/22 08:50 04/24/22 14:40 Temperature 97.4 F L Pulse Rate 52 L 52 L Respiratory Rate 18 Blood Pressure 110/55 L Pulse Oximetry 96 Oxygen Delivery Room Air 04/24/22 20:59 04/24/22 20:00 04/24/22 22:15 Temperature 98.3 F Pulse Rate 80 79 Respiratory Ra
[2022-04-25] MEDS: GABAPENTIN 300 MG CAPSULE PO ×3 (08:51→17:57)
[2022-04-25] MEDS: PANTOPRAZOLE 40 MG TABLET PO (08:52)
[2022-04-25] MEDS: polyethylene glycoL 3350 17 GM POWD.PACK PO (08:52)
[2022-04-25] MEDS: TAMSULOSIN HCL 0.4 MG CAPSULE PO (08:52)
[2022-04-25] MEDS: METOPROLOL TARTRATE 50 MG TAB PO ×2 (08:52→20:50)
[2022-04-25] MEDS: minoxidiL 10 MG TABLET PO (08:52)
[2022-04-25] MEDS: LORATADINE 10 MG TABLET PO (08:52)
[2022-04-25] MEDS: FERROUS SULFATE 324 MG TABLET PO (08:52)
[2022-04-25] MEDS: POTASSIUM CHLORIDE 20 MEQ TABLET.ER 40 MEQ PO ×2 (08:52→17:57)
[2022-04-25] MEDS: acetaZOLAMIDE TAB 250 MG TABLET 500 MG PO ×3 (08:53→17:56)
[2022-04-25] MEDS: BUMETANIDE INJ 2.5 MG/10 ML VIAL 2 MG IV PUSH (08:53)
[2022-04-25] MEDS: ASPIRIN 81 MG ENTERIC TABLET PO (08:53)
[2022-04-25] MEDS: APIXABAN 5 MG TABLET PO ×2 (08:53→20:50)
[2022-04-25] MEDS: FLUTICASONE PROPIONATE 0.05% NA SPR 16 GM BTL (*BKC) 1 SPRAY NASAL (08:54)
[2022-04-25] MEDS: EUCERIN CREAM 454 GM JAR 1 APPLIC TOPICAL ×2 (08:54→20:50)
[2022-04-25] MEDS: ACETAMINOPHEN 500 MG TABLET 1000 MG PO ×2 (08:56→20:48)
[2022-04-25 11:22] LABS: Glucose Point of Care 121 mg/dl (65-105)
--- NOTE | 2022-04-25 12:30 | P.PNNP_ITS ---
Progress Note: A&P Assessment and Plan (1) JENA (acute kidney injury): Code(s): N17.9 - Acute kidney failure, unspecified Status: Acute Assessment and Plan: * fluctuations as noted... * multiple issues contributing to his elevated creatinine: * complex hemodynamics related to his vasculature * volume overload * possible renal venous hypertension * need for diuretic therapy * continue diuresis as tolerated * on bumex 2mg IV tid * on acetazolamide 500mg po tid * metolazone PRN * consider spironolactone given hypokalemia if continues to persist * with his rise in creatinine in the last few days -- this may be a sign we maybe reaching our limit with diuresis (i.e. getting to a point of intravascul ar volume depletion in spite of external signs of fluid/volume overload) * follow repeat labs and UOP (2) Chronic kidney disease, stage 3: Code(s): N18.30 - Chronic kidney disease, stage 3 unspecified Status: Chronic Assessment and Plan: * baseline creatinine runs ~ 1.4 - 1.7mg/dl * this causes him to fluctuate between CKD stage 3A and stage 3B * due to hypertension and chronic pre renal azotemia due to his poorly functioning heart (3) Fever: Code(s): R50.9 - Fever, unspecified Status: Acute Assessment and Plan: * etiology * work-up so far negative * follow symptoms (4) Acute on chronic congestive heart failure: Qualifiers: Heart failure type: right-sided Qualified Code(s): I50.813 - Acute on chronic right heart failure Code(s): I50.9 - Heart failure, unspecified Status: Acute Assessment and Plan: * due to right sided heart failure complicated by moderate pulmonary HTN * continue aggressive IV diuretic therapy (5) Obstructive sleep apnea: Code(s): G47.33 - Obstructive sleep apnea (adult) (pediatric) Status: Chronic Assessment and Plan: * continue CPAP therapy * reports compliance at home (6) Fall from ground level: Code(s): W18.30XA - Fall on same level, unspecified, initial encounter Status: Acute Assessment and Plan: * 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 Subjective Date/time seen: 04/25/22 12:30 States he feels okay at the time of my visit; no real significant change other that less cramping in his hands/upper extremities; continues to make good urine output in response to diuretics. Exam Narrative: General: Large WD/WN male in NAD Heart: normal S1 and S2; no rub Lungs: clear but decreased at bases Abdomen: soft, nontender, nondistended, positive bowel sounds Extremities: no cyanosis or clubbing; 2+ edema Skin: chronic changes apparent Objective Data Vital Signs Vital Signs: Vital Signs Temp Pulse Resp BP Pulse Ox O2 Del Method 04/25/22 10:28 141/75 H 04/25/22 08:00 97.4 F L 55 L 14 160/64 H 94 04/25/22 08:52 70 04/25/22 07:40 Room Air 04/25/22 05:59 98.0 F 55 L 18 118/55 L 100 04/24/22 22:40 74 95 Room Air 04/24/22 22:15 98.3 F 79 18 129/75 96 04/24/22 20:00 Room Air 04/24/22 20:59 80 04/24/22 14:40 97.4 F L 52 L 18 110/55 L 96 Intake/Output Intake/Output: Intake & Output 04/22/22 04/23/22
--- NOTE | 2022-04-25 12:30 | PM.PNNEP ---
Progress Note: A&P Assessment and Plan (1) JENA (acute kidney injury): Code(s): N17.9 - Acute kidney failure, unspecified Status: Acute Assessment and Plan: fluctuations as noted... multiple issues contributing to his elevated creatinine: complex hemodynamics related to his vasculature volume overload possible renal venous hypertension need for diuretic therapy continue diuresis as tolerated on bumex 2mg IV tid on acetazolamide 500mg po tid metolazone PRN consider spironolactone given hypokalemia if continues to persist with his rise in creatinine in the last few days -- this may be a sign we maybe reaching our limit with diuresis (i.e. getting to a point of intravascular volume depletion in spite of external signs of fluid/volume overload) follow repeat labs and UOP (2) Chronic kidney disease, stage 3: Code(s): N18.30 - Chronic kidney disease, stage 3 unspecified Status: Chronic Assessment and Plan: baseline creatinine runs ~ 1.4 - 1.7mg/dl this causes him to fluctuate between CKD stage 3A and stage 3B due to hypertension and chronic pre renal azotemia due to his poorly functioning heart (3) Fever: Code(s): R50.9 - Fever, unspecified Status: Acute Assessment and Plan: etiology work-up so far negative follow symptoms (4) Acute on chronic congestive heart failure: Qualifiers: Heart failure type: right-sided Qualified Code(s): I50.813 - Acute on chronic right heart failure Code(s): I50.9 - Heart failure, unspecified Status: Acute Assessment and Plan: due to right sided heart failure complicated by moderate pulmonary HTN continue aggressive IV diuretic therapy (5) Obstructive sleep apnea: Code(s): G47.33 - Obstructive sleep apnea (adult) (pediatric) Status: Chronic Assessment and Plan: continue CPAP therapy reports compliance at home (6) Fall from ground level: Code(s): W18.30XA - Fall on same level, unspecified, initial encounter Status: Acute Assessment and Plan: 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 Subjective Date/time seen: 04/25/22 12:30 States he feels okay at the time of my visit; no real significant change other that less cramping in his hands/upper extremities; continues to make good urine output in response to diuretics. Exam Narrative: General: Large WD/WN male in NAD Heart: normal S1 and S2; no rub Lungs: clear but decreased at bases Abdomen: soft, nontender, nondistended, positive bowel sounds Extremities: no cyanosis or clubbing; 2+ edema Skin: chronic changes apparent Objective Data Vital Signs Vital Signs: Vital Signs Temp Pulse Resp BP Pulse Ox O2 Del Method 04/25/22 10:28 141/75 H 04/25/22 08:00 97.4 F L 55 L 14 160/64 H 94 04/25/22 08:52 70 04/25/22 07:40 Room Air 04/25/22 05:59 98.0 F 55 L 18 118/55 L 100 04/24/22 22:40 74 95 Room Air 04/24/22 22:15 98.3 F 79 18 129/75 96 04/24/22 20:00 Room Air 04/24/22 20:59 80 04/24/22 14:40 97.4 F L 52 L 18 110/55 L 96 Intake/Output Intake/Output: Intake & Output 04/22/22 04/23/22 04/24/22 04/25/22 23:59 23:59 23:59 23:59 Intake Total 613 090 3539 1240 Output Total 4825 [address] [place], [place] [id number] [phone] Meds/Results Medications: Active Medications Generic Name Dose Route Start Last Admin Trade Name Marcosq PRN Reason Stop Dose Admin Acetaminophen 1,000 mg 04/11/22 23:42 04/25/22 08:56 Acetaminophen 500 Mg Tablet PO 1,000 mg Q6H PRN Administration Pain Rated 1-3 Acetazolamide 500 mg 04/21/22 13:00 04/25/22 08:53 Acetazolamide Tab 250 Mg Tablet PO 500 mg TID ANGELA Administration Apixaban 5 mg 04/12/22 09:00 04/25/22 08:53 Apixaban 5 Mg Tablet PO 5 mg Q12HR ANGELA Administration Aspirin 81 mg 04/12/22 09:00 04/25/22 08:
--- NOTE | 2022-04-25 12:39 | PM.PNCARD ---
Progress Note: A&P Assessment and Plan (1) Acute on chronic congestive heart failure: Qualifiers: Heart failure type: right-sided Qualified Code(s): I50.813 - Acute on chronic right heart failure Code(s): I50.9 - Heart failure, unspecified Status: Acute Assessment and Plan: Acute on chronic right heart failure with preserved left ventricular systolic function, EF 60-65%. He also has moderate pulmonary hypertension, PASP 51 mmHg. Low sodium diet, strict I/Os, daily weights. Fluid balance ~35L negative. Has diuresed ~85lbs Continue close monitoring of renal function and electrolytes. Has diuresed very well but remains volume overloaded. Probably approaching maximum benefit of IV diuretic, though. Will shift to p.o. bumex starting this evening. Will also add spironolactone starting tomorrow a.m. Continue with Acetazolamide 500 mg 3 times daily for heart failure. Metolazone p.r.n. (2) Atrial fibrillation: Qualifiers: Atrial fibrillation type: longstanding persistent Qualified Code(s): I48.11 - Longstanding persistent atrial fibrillation Code(s): I48.91 - Unspecified atrial fibrillation Status: Acute Assessment and Plan: Heart rate controlled. Apixaban 5mg BID for CVA risk reduction. Continue metoprolol 50 mg twice daily for heart rate control. Need to keep potassium closer to 4.0. More aggressive potassium supplementation. May discontinue telemetry once potassium conistently stabilized. (3) Hypokalemia: Code(s): E87.6 - Hypokalemia Status: Resolved Assessment and Plan: As above remains persistently hypokalemic secondary to aggressive diuresis. Increase potassium supplementation with degree of diuresis. (4) Chronic kidney disease: Code(s): N18.9 - Chronic kidney disease, unspecified Status: Acute Assessment and Plan: Minimize nephrotoxic agents. History of acute on chronic baseline stage 3 chronic kidney disease baseline creatinine is around 1.5 but likely will need to establish higher baseline to maintain adequate volume control. SCR slightly higher today, 2.5. Continue daily BMP. (5) Pulmonary hypertension: Code(s): I27.20 - Pulmonary hypertension, unspecified Status: Acute Assessment and Plan: History of moderate pulmonary hypertension RVSP 51 mm Hg by echo 05/2021 continued BiPAP for AMELIA treatment. (6) Essential (primary) hypertension: Code(s): I10 - Essential (primary) hypertension Status: Acute Assessment and Plan: BP stable somewhat labile. Continue minoxidil 10 mg daily, metoprolol 50 mg twice daily. (7) Anemia: Qualifiers: Anemia type: due to chronic kidney disease Chronic kidney disease stage: stage 3 (moderate) Chronic kidney disease stage 3 subtype: unspecified whether 3a or 3b Qualified Code(s): N18.30 - Chronic kidney disease, stage 3 unspecified; D63.1 - Anemia in chronic kidney disease Code(s): D64.9 - Anemia, unspecified Status: Acute Assessment and Plan: H&H stable. No evidence for active bleed. Continue to follow. (8) Obstructive sleep apnea: Code(s): G47.33 - Obstructive sleep apnea (adult) (pediatric) Status: Chronic Assessment and Plan: Encouraged complaince with BiPAP (9) Fall from ground level: Code(s): W18.30XA - Fall on same level, unspecified, initial encounter Status: Acute Assessment and Plan: Per patient report, secondary to weakness. PT/OT. He will need rehabilitation. Subjective Date/time seen: 04/25/22 12:39 Interval history: Reason for visit: Decompensated right heart failure, atrial fibrillation HPI: Mr. Cyr Is a 72-year-old male with a past medical history significant for morbid obesity, obstructive sleep apnea on BiPAP,? heart failure with preserved ejection fraction, atrial fibrillation, and chronic kidney disease.? ? This is a patient who is
--- NOTE | 2022-04-25 14:04 | PC.NURSE ---
call to pharm for PO bumex
[2022-04-25] MEDS: BUMETANIDE 1 MG TABLET 3 MG PO ×2 (14:22→17:57)
[2022-04-25] MEDS: POTASSIUM CHLORIDE 20 MEQ TABLET 40 MEQ PO (16:38)
[2022-04-25] MEDS: metOLazone 5 MG TABLET PO (16:42)
[2022-04-25] MEDS: SENNA/DOCUSATE SODIUM TABLET 1 TAB PO (20:50)
[2022-04-25] MEDS: TEMAZEPAM (*CRX) 15 MG CAPSULE PO (20:56)
[2022-04-25] MEDS: WATER FOR IRRIGATION, STERILE 1,000 ML BOTTLE 1000 ML (23:09)
[2022-04-26] VITALS (12 sets, daily range): BP systolic 115–125; BP diastolic 55–63; PULSE 46–101; RESP 12–20; TEMP 36.2–37.1; O2SAT 95–98
[2022-04-26 06:10] LABS: Basophils Absolute Auto 0.1 K/mm3 (0.0-0.1); Basophils Percent Auto 1.3 % (0.2-1.2); Eosinophils Absolute Auto 0.5 K/mm3 (0-0.3); Eosinophils Percent Auto 8.7 % (0-4.4); Hematocrit 37.4 % (42.0-52.0); Hemoglobin 10.2 g/dL (14.0-18.0); Immature Granulocyte Absolute 0.03 K/mm3 (0.00-0.031); Immature Granulocyte Percent A 0.5 % (0-0.5); Lymphocytes Absolute Auto 0.68 K/mm3 (0.9-3.2); Lymphocytes Percent Auto 11.2 % (18.3-44.2); Mean Corpuscular HGB Conc 27.3 g/dl (32-36); Mean Corpuscular Hemoglobin 23.9 pg (26-34); Mean Corpuscular Volume 87.8 fl (80-100); Mean Platelet Volume 11.2 fl (7.4-10.4); Monocytes Absolute Auto 0.8 K/mm3 (0.1-0.6); Monocytes Percent Auto 12.4 % (2.6-8.5); Neutrophils Percent Auto 65.9 % (45.5-73.1); Platelet Count Result 313 k/mm3 (150-375); Red Blood Count 4.26 M/mm3 (4.6-6.20); White Blood Count 6.1 K/mm3 (4.5-10.0)
[2022-04-26] MEDS: LEVOTHYROXINE SODIUM 100 MCG TABLET 200 MCG PO (06:15)
[2022-04-26 06:25] LABS: Alanine Aminotransferase 12 U/L (6-50); Albumin Level 3.5 g/dL (3.5-5.1); Alkaline Phosphatase 53 U/L (38-126); Anion Gap 7 mmol/L (8-16); Aspartate Amino Transferase 20 U/L (17-59); Bilirubin,Total 0.8 mg/dL (0.2-1.3); Blood Urea Nitrogen 36 mg/dL (9-20); Calcium 8.4 mg/dL (8.4-10.2); Carbon Dioxide 36 mmol/L (22-30); Chloride 99 mmol/L (98-107); Estimated CRCL calculation 35 ml/min; Estimated Glomerular Filt Rate 23; Glucose 97 mg/dL (65-110); Potassium 3.2 mmol/L (3.4-5.0); Sodium 142 mmol/L (137-145)
[2022-04-26 07:34] LABS: Anisocytosis 1+ (NORMAL); Burr Cells 1+ (NORMAL); Ovalocytes 1+ (NORMAL); Platelet Estimate Adequate (Adequate); Schistocytes None Seen (NORMAL)
[2022-04-26] MEDS: ACETAMINOPHEN 500 MG TABLET 1000 MG PO ×2 (08:42→22:03)
[2022-04-26] MEDS: APIXABAN 5 MG TABLET PO ×2 (08:44→20:11)
[2022-04-26] MEDS: BUMETANIDE 1 MG TABLET 3 MG PO ×3 (08:44→18:09)
[2022-04-26] MEDS: SPIRONOLACTONE 25 MG TABLET PO (08:44)
[2022-04-26] MEDS: TAMSULOSIN HCL 0.4 MG CAPSULE PO (08:44)
[2022-04-26] MEDS: GABAPENTIN 300 MG CAPSULE PO ×3 (08:45→18:09)
[2022-04-26] MEDS: minoxidiL 10 MG TABLET PO (08:45)
[2022-04-26] MEDS: POTASSIUM CHLORIDE 20 MEQ TABLET.ER 40 MEQ PO ×2 (08:45→18:09)
[2022-04-26] MEDS: acetaZOLAMIDE TAB 250 MG TABLET 500 MG PO ×3 (08:45→18:10)
[2022-04-26] MEDS: METOPROLOL TARTRATE 50 MG TAB PO ×2 (08:46→22:03)
[2022-04-26] MEDS: PANTOPRAZOLE 40 MG TABLET PO (08:47)
[2022-04-26] MEDS: FERROUS SULFATE 324 MG TABLET PO (08:47)
[2022-04-26] MEDS: ASPIRIN 81 MG ENTERIC TABLET PO (08:47)
[2022-04-26] MEDS: LORATADINE 10 MG TABLET PO (08:48)
[2022-04-26] MEDS: EUCERIN CREAM 454 GM JAR 1 APPLIC TOPICAL ×2 (08:49→20:12)
[2022-04-26] MEDS: FLUTICASONE PROPIONATE 0.05% NA SPR 16 GM BTL (*BKC) 1 SPRAY NASAL (08:49)
--- NOTE | 2022-04-26 09:51 | PCNWS ---
Weekly nutritional screen. Patient is tolerating current 2gm NA diet with adequate intake at 75-100% most all meals. Wt fluctuations noted from diuresis. No nutritional needs at this time.
--- NOTE | 2022-04-26 10:17 | PM.IMPN ---
Progress Note: A&P Assessment and Plan (1) Acute on chronic congestive heart failure: Qualifiers: Heart failure type: right-sided Qualified Code(s): I50.813 - Acute on chronic right heart failure Code(s): I50.9 - Heart failure, unspecified Status: Acute Assessment and Plan: Continuing to diurese well, much improved, appreciate cardiology consultation Anticipate discharge tomorrow on oral diuretics to rehab facility (2) Chronic kidney disease: Code(s): N18.9 - Chronic kidney disease, unspecified Status: Acute Assessment and Plan: Appreciate nephrology consultation, appears to be at dry weight (3) Fall from ground level: Code(s): W18.30XA - Fall on same level, unspecified, initial encounter Status: Acute Assessment and Plan: Slid down landing on his buttocks. No head injury. Continue PT/OT. Increase time out of bed as patient allows. (4) Chronic acquired lymphedema: Code(s): I89.0 - Lymphedema, not elsewhere classified Status: Acute Assessment and Plan: Worsened from CHF and improved (5) Chronic anemia: Code(s): D64.9 - Anemia, unspecified Status: Acute Assessment and Plan: Baseline Hgb 9-11 Hgb stable at 9-10 range now Chronic anemia probably related to CKD Follow (6) Obstructive sleep apnea: Code(s): G47.33 - Obstructive sleep apnea (adult) (pediatric) Status: Chronic Assessment and Plan: No signs of hypoxia noted on the [facility] when the test was done with home unit in place and on 4L. Patient is compliant with BiPAP. Continue the same here. (7) Atrial fibrillation: Qualifiers: Atrial fibrillation type: longstanding persistent Qualified Code(s): I48.11 - Longstanding persistent atrial fibrillation Code(s): I48.91 - Unspecified atrial fibrillation Status: Acute Assessment and Plan: EKG showing chronic AFib. Patient's rate controlled. Continue Eliquis. Continue metoprolol for rate control. (8) Fever: Code(s): R50.9 - Fever, unspecified Status: Acute Assessment and Plan: Patient had low grade fever on 04/19. CRP normal. LE venous doppler negative for DVT. CXR reviewed personally and the lung wolf are clear without infiltrate (radiology concurs). UA clear. CT A/P results reviewed personally showing bilateral pleural effusions and mild splenomegaly but no clear etiology of his persistent abdominal pain. +BMs. Fever has not recurred. Continue to monitor. Plan DVT prophylaxis with Eliquis Code status full code Subjective Date/time seen: 04/26/22 10:17 Interval history: 72yo male with CHF, AFib, lymphedema and CKD here for fall and found to have CHF exacerbation. Patient feeling about back to baseline with fluid status. He feels quite weak and is reluctantly agreeing to go to [facility] tomorrow. No CP, SOB, NVD, F/C. Review of Systems Review of Systems: 12 point review of systems was assessed and was negative except as noted in the HPI Exam Narrative: General: No acute distress, alert and oriented per baseline HEENT: Atraumatic, normocephalic, mucous membranes moist CV: Regular rate and rhythm, S1, S2 Lungs: Clear to auscultation bilaterally, no rales or crackles noted, no wheezes, good air entry Abdomen: Soft, nontender, nondistended Extremities: Anasarca significantly improved, Some edema in lower extremities, none noted in abdomen Psych: Euthymic, normal affect Objective Data Vital Signs Vital Signs: Vital Signs - 24 hr 04/25/22 10:28 04/25/22 14:00 04/25/22 19:42 Temperature 97.6 F Pulse Rate 54 L Respiratory Rate 16 Blood Pressure 141/75 H 117/59 L Pulse Oximetry 97 Oxygen Delivery Room Air 04/25/22 20:50 04/25/22 22:14 04/25/22 23:25 Temperature 97.9 F Pulse Rate 80 55 L 59 L Respiratory Rate 16 Blood Pressure 112/64 Pulse Oximetry 95 95 O
[2022-04-26] MEDS: POTASSIUM CHLORIDE 20 MEQ TABLET 40 MEQ PO (12:14)
--- NOTE | 2022-04-26 13:03 | PM.PNNEP ---
Progress Note: A&P Assessment and Plan (1) JENA (acute kidney injury): Code(s): N17.9 - Acute kidney failure, unspecified Status: Acute Assessment and Plan: fluctuations as noted... multiple issues contributing to his elevated creatinine: complex hemodynamics related to his vasculature volume overload possible renal venous hypertension need for diuretic therapy continue diuresis as tolerated on bumex 2mg IV tid -- switched to oral today on acetazolamide 500mg po tid metolazone PRN consider spironolactone given hypokalemia if continues to persist with his rise in creatinine in the today -- this may be a sign we maybe reaching our limit with IV diuresis (i.e. getting to a point of intravascular volume depletion in spite of external signs of fluid/volume overload) follow repeat labs and UOP (2) Chronic kidney disease, stage 3: Code(s): N18.30 - Chronic kidney disease, stage 3 unspecified Status: Chronic Assessment and Plan: baseline creatinine runs ~ 1.4 - 1.7mg/dl this causes him to fluctuate between CKD stage 3A and stage 3B due to hypertension and chronic pre renal azotemia due to his poorly functioning heart (3) Fever: Code(s): R50.9 - Fever, unspecified Status: Acute Assessment and Plan: etiology work-up so far negative follow symptoms (4) Acute on chronic congestive heart failure: Qualifiers: Heart failure type: right-sided Qualified Code(s): I50.813 - Acute on chronic right heart failure Code(s): I50.9 - Heart failure, unspecified Status: Acute Assessment and Plan: due to right sided heart failure complicated by moderate pulmonary HTN continue aggressive diuretic therapy almost 37L negative since admission (which is about 81 pounds!) (5) Obstructive sleep apnea: Code(s): G47.33 - Obstructive sleep apnea (adult) (pediatric) Status: Chronic Assessment and Plan: continue CPAP therapy reports compliance at home (6) Fall from ground level: Code(s): W18.30XA - Fall on same level, unspecified, initial encounter Status: Acute Assessment and 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 Subjective Date/time seen: 04/26/22 13:03 Continues to diureses although creatinine up a bit by AM labs; transitioned to oral diuretic therapy today; feels reasonably well and better in comparison to admission; no apparent distress voiced at this time. Exam Narrative: General: Large WD/WN male in NAD Heart: normal S1 and S2; no rub Lungs: clear but decreased at bases Abdomen: soft, nontender, nondistended, positive bowel sounds Extremities: no cyanosis or clubbing; 1 - 2+ edema Skin: chronic changes apparent Objective Data Vital Signs Vital Signs: Vital Signs Temp Pulse Resp BP Pulse Ox O2 Del Method 04/26/22 13:00 97.7 F 54 L 12 122/56 L 96 04/26/22 08:38 Room Air 04/26/22 10:29 Room Air 04/26/22 08:46 58 L 04/26/22 08:20 115/55 L 04/26/22 08:00 97.2 F L 58 L 12 118/63 95 04/26/22 06:17 97.4 F L 101 H 18 118/59 L 98 04/25/22 23:25 59 L 95 CPAP 04/25/22 22:14 97.9 F 55 L 16 112/64 95 04/25/22 20:50 80 04/25/22 19:42 Room Air Intake/Output Intake/Output: Intake & Output 04/23/22 04/24/22 04/25/22 04/26/22 23:59 23:59 23:59 23:59 Intake Total 360 1270 2020 398 Output Total 3275 0915 7545 0004 [facility]2915 -[phone] [phone] Meds/Results Medications: Active Medications Generic Name Dose Route Start Last Admin Trade Name Marcosq PRN Reason Stop Dose Admin Acetaminophen 1,000 mg 04/11/22 23:42 04/26/22 08:42 Acetaminophen 500 Mg Tablet PO 1,000 mg Q6H PRN Administration Pain Rated 1-3 Acetazolamide 500 mg 04/21/22 13:00 04/26/22 12:15 Acetazolamide Tab 250 Mg Tablet PO 500 mg TID ANGELA Administration Apixaban 5 mg 04/01
--- NOTE | 2022-04-26 13:03 | P.PNNP_ITS ---
Progress Note: A&P Assessment and Plan (1) JENA (acute kidney injury): Code(s): N17.9 - Acute kidney failure, unspecified Status: Acute Assessment and Plan: * fluctuations as noted... * multiple issues contributing to his elevated creatinine: * complex hemodynamics related to his vasculature * volume overload * possible renal venous hypertension * need for diuretic therapy * continue diuresis as tolerated * on bumex 2mg IV tid -- switched to oral today * on acetazolamide 500mg po tid * metolazone PRN * consider spironolactone given hypokalemia if continues to persist * with his rise in creatinine in the today -- this may be a sign we maybe reaching our limit with IV diuresis (i.e. getting to a point of intravascular volume depletion in spite of external signs of fluid/volume overload) * follow repeat labs and UOP (2) Chronic kidney disease, stage 3: Code(s): N18.30 - Chronic kidney disease, stage 3 unspecified Status: Chronic Assessment and Plan: * baseline creatinine runs ~ 1.4 - 1.7mg/dl * this causes him to fluctuate between CKD stage 3A and stage 3B * due to hypertension and chronic pre renal azotemia due to his poorly functioning heart (3) Fever: Code(s): R50.9 - Fever, unspecified Status: Acute Assessment and Plan: * etiology * work-up so far negative * follow symptoms (4) Acute on chronic congestive heart failure: Qualifiers: Heart failure type: right-sided Qualified Code(s): I50.813 - Acute on chronic right heart failure Code(s): I50.9 - Heart failure, unspecified Status: Acute Assessment and Plan: * due to right sided heart failure complicated by moderate pulmonary HTN * continue aggressive diuretic therapy * almost 37L negative since admission (which is about 81 pounds!) (5) Obstructive sleep apnea: Code(s): G47.33 - Obstructive sleep apnea (adult) (pediatric) Status: Chronic Assessment and Plan: * continue CPAP therapy * reports compliance at home (6) Fall from ground level: Code(s): W18.30XA - Fall on same level, unspecified, initial encounter Status: Acute Assessment and Plan: * 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 Subjective Date/time seen: 04/26/22 13:03 Continues to diureses although creatinine up a bit by AM labs; transitioned to oral diuretic therapy today; feels reasonably well and better in comparison to admission; no apparent distress voiced at this time. Exam Narrative: General: Large WD/WN male in NAD Heart: normal S1 and S2; no rub Lungs: clear but decreased at bases Abdomen: soft, nontender, nondistended, positive bowel sounds Extremities: no cyanosis or clubbing; 1 - 2+ edema Skin: chronic changes apparent Objective Data Vital Signs Vital Signs: Vital Signs Temp Pulse Resp BP Pulse Ox O2 Del Method 04/26/22 13:00 97.7 F 54 L 12 122/56 L 96 04/26/22 08:38 Room Air 04/26/22 10:29 Room Air 04/26/22 08:46 58 L 04/26/22 08:20 115/55 L 04/26/22 08:00 97.2 F L 58 L 12 118/63 95 04/26/22 06:17 97.4 F L 101 H 18 118/59 L 98 04/25/22 23:25 59 L 95 CPAP 04/25/22 22:14 97.9 F 55 L 16 112/64 95 04/25/22 20:50 80 04/25/22 19:42 Room Air
--- NOTE | 2022-04-26 18:07 | PC.NURSE ---
patient requested that we take off mepilex border on buttocks. Skin is not reddened. Skin is intact.
--- NOTE | 2022-04-26 20:46 | PC.NURSE ---
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
[2022-04-26] MEDS: TEMAZEPAM (*CRX) 15 MG CAPSULE PO (22:02)
--- NOTE | 2022-04-26 22:04 | PC.NURSE ---
hr recheck 77 metoprolol given at [facility]
[2022-04-27] VITALS (8 sets, daily range): BP systolic 115–125; BP diastolic 48–75; PULSE 54–91; RESP 14–18; TEMP 35.9–37.1; O2SAT 95–100
[2022-04-27] MEDS: LEVOTHYROXINE SODIUM 100 MCG TABLET 200 MCG PO (05:28)
[2022-04-27 06:45] LABS: Basophils Absolute Auto 0.1 K/mm3 (0.0-0.1); Basophils Percent Auto 2.1 % (0.2-1.2); Eosinophils Absolute Auto 0.5 K/mm3 (0-0.3); Eosinophils Percent Auto 9.2 % (0-4.4); Hematocrit 40.3 % (42.0-52.0); Immature Granulocyte Absolute 0.03 K/mm3 (0.00-0.031); Immature Granulocyte Percent A 0.5 % (0-0.5); Lymphocytes Absolute Auto 0.68 K/mm3 (0.9-3.2); Lymphocytes Percent Auto 11.8 % (18.3-44.2); Mean Corpuscular HGB Conc 27.3 g/dl (32-36); Mean Corpuscular Hemoglobin 23.6 pg (26-34); Mean Corpuscular Volume 86.3 fl (80-100); Mean Platelet Volume 11.7 fl (7.4-10.4); Monocytes Absolute Auto 0.7 K/mm3 (0.1-0.6); Monocytes Percent Auto 11.6 % (2.6-8.5); Neutrophils Absolute Auto 3.8 K/mm3 (1.3-6.7); Neutrophils Percent Auto 64.8 % (45.5-73.1); Platelet Count Result 376 k/mm3 (150-375); Red Blood Count 4.67 M/mm3 (4.6-6.20); Red Cell Distribution Width 17.9 % (11.5-14.5); White Blood Count 5.8 K/mm3 (4.5-10.0)
[2022-04-27 06:54] LABS: Alanine Aminotransferase 14 U/L (6-50); Albumin Level 4.1 g/dL (3.5-5.1); Alkaline Phosphatase 41 U/L (38-126); Anion Gap 8 mmol/L (8-16); Aspartate Amino Transferase 40 U/L (17-59); Bilirubin,Total 1.2 mg/dL (0.2-1.3); Blood Urea Nitrogen 40 mg/dL (9-20); Calcium 8.5 mg/dL (8.4-10.2); Carbon Dioxide 35 mmol/L (22-30); Chloride 95 mmol/L (98-107); Estimated CRCL calculation 35 ml/min; Estimated Glomerular Filt Rate 23; Glucose 103 mg/dL (65-110); Potassium 3.8 mmol/L (3.4-5.0); Sodium 138 mmol/L (137-145)
[2022-04-27] MEDS: minoxidiL 10 MG TABLET PO (08:31)
[2022-04-27] MEDS: PANTOPRAZOLE 40 MG TABLET PO (08:31)
[2022-04-27] MEDS: SPIRONOLACTONE 25 MG TABLET PO (08:31)
[2022-04-27] MEDS: GABAPENTIN 300 MG CAPSULE PO ×3 (08:31→15:56)
[2022-04-27] MEDS: acetaZOLAMIDE TAB 250 MG TABLET 500 MG PO ×3 (08:31→15:56)
[2022-04-27] MEDS: TAMSULOSIN HCL 0.4 MG CAPSULE PO (08:31)
[2022-04-27] MEDS: polyethylene glycoL 3350 17 GM POWD.PACK PO (08:31)
[2022-04-27] MEDS: FERROUS SULFATE 324 MG TABLET PO (08:31)
[2022-04-27] MEDS: POTASSIUM CHLORIDE 20 MEQ TABLET.ER 40 MEQ PO ×2 (08:31→15:57)
[2022-04-27] MEDS: ASPIRIN 81 MG ENTERIC TABLET PO (08:31)
[2022-04-27] MEDS: BUMETANIDE 1 MG TABLET 3 MG PO ×3 (08:31→15:56)
[2022-04-27] MEDS: LORATADINE 10 MG TABLET PO (08:31)
[2022-04-27] MEDS: APIXABAN 5 MG TABLET PO ×2 (08:31→20:06)
[2022-04-27] MEDS: METOPROLOL TARTRATE 50 MG TAB PO ×2 (08:31→20:07)
[2022-04-27] MEDS: EUCERIN CREAM 454 GM JAR 1 APPLIC TOPICAL ×2 (08:32→20:06)
[2022-04-27] MEDS: FLUTICASONE PROPIONATE 0.05% NA SPR 16 GM BTL (*BKC) 1 SPRAY NASAL (08:32)
[2022-04-27] MEDS: ACETAMINOPHEN 500 MG TABLET 1000 MG PO ×2 (08:39→20:06)
--- NOTE | 2022-04-27 08:41 | PM.PNCARD ---
Progress Note: A&P Assessment and Plan (1) Acute on chronic congestive heart failure: Qualifiers: Heart failure type: right-sided Qualified Code(s): I50.813 - Acute on chronic right heart failure Code(s): I50.9 - Heart failure, unspecified Status: Acute Assessment and Plan: Acute on chronic right heart failure with preserved left ventricular systolic function, EF 60-65%. He also has moderate pulmonary hypertension, PASP 51 mmHg. Low sodium diet, strict I/Os, daily weights. Fluid balance ~40L negative. Has diuresed ~85lbs Continue close monitoring of renal function and electrolytes. Has diuresed very well but remains volume overloaded. Has been shifted to p.o. diuretics at this point and continues to diurese well. If SCR continues to rise will reduce Bumex dose but stable today. Continue spironolactone Continue with Acetazolamide 500 mg 3 times daily for heart failure. Metolazone p.r.n. (2) Atrial fibrillation: Qualifiers: Atrial fibrillation type: longstanding persistent Qualified Code(s): I48.11 - Longstanding persistent atrial fibrillation Code(s): I48.91 - Unspecified atrial fibrillation Status: Acute Assessment and Plan: Heart rate controlled. Apixaban 5mg BID for CVA risk reduction. Continue metoprolol 50 mg twice daily for heart rate control. (3) Hypokalemia: Code(s): E87.6 - Hypokalemia Status: Resolved Assessment and Plan: Improving with addition of spironolactone. K+ supplementation as needed. Keep K+ close to 4.0. (4) Chronic kidney disease: Code(s): N18.9 - Chronic kidney disease, unspecified Status: Acute Assessment and Plan: Minimize nephrotoxic agents. History of acute on chronic baseline stage 3 chronic kidney disease baseline creatinine is around 1.5 but likely will need to establish higher baseline to maintain adequate volume control. SCR slightly higher today, 2.7. Continue daily BMP. (5) Pulmonary hypertension: Code(s): I27.20 - Pulmonary hypertension, unspecified Status: Acute Assessment and Plan: History of moderate pulmonary hypertension RVSP 51 mm Hg by echo 05/2021 continued BiPAP for AMELIA treatment. (6) Essential (primary) hypertension: Code(s): I10 - Essential (primary) hypertension Status: Acute Assessment and Plan: BP stable somewhat labile. Continue minoxidil 10 mg daily, metoprolol 50 mg twice daily. (7) Anemia: Qualifiers: Anemia type: due to chronic kidney disease Chronic kidney disease stage: stage 3 (moderate) Chronic kidney disease stage 3 subtype: unspecified whether 3a or 3b Qualified Code(s): N18.30 - Chronic kidney disease, stage 3 unspecified; D63.1 - Anemia in chronic kidney disease Code(s): D64.9 - Anemia, unspecified Status: Acute Assessment and Plan: H&H stable. No evidence for active bleed. Continue to follow. (8) Obstructive sleep apnea: Code(s): G47.33 - Obstructive sleep apnea (adult) (pediatric) Status: Chronic Assessment and Plan: Encouraged complaince with BiPAP (9) Fall from ground level: Code(s): W18.30XA - Fall on same level, unspecified, initial encounter Status: Acute Assessment and Plan: Per patient report, secondary to weakness. PT/OT. He will need rehabilitation. Subjective Date/time seen: 04/27/22 08:41 Interval history: Reason for visit: Decompensated right heart failure, atrial fibrillation HPI: Mr. Cyr Is a 72-year-old male with a past medical history significant for morbid obesity, obstructive sleep apnea on BiPAP,? heart failure with preserved ejection fraction, atrial fibrillation, and chronic kidney disease.? ? This is a patient who is followed in our office by Dr. Allen. ? He required a lengthy hospitalization here back in May of 2021 for acute on chronic heart failure.? During that hospitalization he requi
[2022-04-27 08:54] LABS: Anisocytosis 1+ (NORMAL); Hypochromasia 1+ (NORMAL); Ovalocytes 1+ (NORMAL); Platelet Estimate Adequate (Adequate); Schistocytes None Seen (NORMAL)
--- NOTE | 2022-04-27 11:03 | P.PNNP_ITS ---
Progress Note: A&P Assessment and Plan (1) JENA (acute kidney injury): Code(s): N17.9 - Acute kidney failure, unspecified Status: Acute Assessment and Plan: * fluctuations as noted... * multiple issues contributing to his elevated creatinine: * complex hemodynamics related to his vasculature * volume overload * possible renal venous hypertension * need for diuretic therapy * continue diuresis as tolerated * on bumex 2mg tid orally * on acetazolamide 500mg po tid * metolazone PRN * spironolactone 25mg qday * with his rise in creatinine -- this may be a sign we maybe reaching our limit with IV diuresis (i.e. getting to a point of intravascular volume depletion in spite of external signs of fluid/volume overload) * follow repeat labs and UOP (2) Chronic kidney disease, stage 3: Code(s): N18.30 - Chronic kidney disease, stage 3 unspecified Status: Chronic Assessment and Plan: * baseline creatinine runs ~ 1.4 - 1.7mg/dl * this causes him to fluctuate between CKD stage 3A and stage 3B * due to hypertension and chronic pre renal azotemia due to his poorly functioning heart (3) Fever: Code(s): R50.9 - Fever, unspecified Status: Acute Assessment and Plan: * etiology * work-up so far negative * follow symptoms (4) Acute on chronic congestive heart failure: Qualifiers: Heart failure type: right-sided Qualified Code(s): I50.813 - Acute on chronic right heart failure Code(s): I50.9 - Heart failure, unspecified Status: Acute Assessment and Plan: * due to right sided heart failure complicated by moderate pulmonary HTN * continue aggressive diuretic therapy * almost 39.5L negative since admission (which is about 87 pounds!!!) (5) Obstructive sleep apnea: Code(s): G47.33 - Obstructive sleep apnea (adult) (pediatric) Status: Chronic Assessment and Plan: * continue CPAP therapy * reports compliance at home (6) Fall from ground level: Code(s): W18.30XA - Fall on same level, unspecified, initial encounter Status: Acute Assessment and Plan: * 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 Subjective Date/time seen: 04/27/22 11:03 Transitioned to oral diuretics yesterday and continues to make reasonable urine output; no apparent distress expressed at the time of my visit; feels about the same if not a bit better; renal function/creatinine appear relatively stable by recent testing. Exam Narrative: General: Large WD/WN male in NAD Heart: normal S1 and S2; no rub Lungs: clear but decreased at bases Abdomen: soft, nontender, nondistended, positive bowel sounds Extremities: no cyanosis or clubbing; 1 - 2+ edema Skin: chronic changes apparent Objective Data Vital Signs Vital Signs: Vital Signs Temp Pulse Resp BP Pulse Ox O2 Del Method O2 Flow Rate 04/27/22 08:00 Room Air 04/27/22 08:31 78 04/27/22 06:00 96.6 F L 54 L 18 115/57 L 100 04/27/22 02:10 91 96 CPAP 04/26/22 23:00 97 CPAP 3 04/26/22 23:00 100 97 CPAP 04/26/22 22:00 97.5 F L 78 20 122/56 L 95 04/26/22 20:46 98.7 F 46 L 20 125/56 L 96 Room Air 04/26/22 22:04 77 04/26/22 22:03 77 04/26/22 20:00 46 L 20 96 Room Air
--- NOTE | 2022-04-27 11:03 | PM.PNNEP ---
Progress Note: A&P Assessment and Plan (1) JENA (acute kidney injury): Code(s): N17.9 - Acute kidney failure, unspecified Status: Acute Assessment and Plan: fluctuations as noted... multiple issues contributing to his elevated creatinine: complex hemodynamics related to his vasculature volume overload possible renal venous hypertension need for diuretic therapy continue diuresis as tolerated on bumex 2mg tid orally on acetazolamide 500mg po tid metolazone PRN spironolactone 25mg qday with his rise in creatinine -- this may be a sign we maybe reaching our limit with IV diuresis (i.e. getting to a point of intravascular volume depletion in spite of external signs of fluid/volume overload) follow repeat labs and UOP (2) Chronic kidney disease, stage 3: Code(s): N18.30 - Chronic kidney disease, stage 3 unspecified Status: Chronic Assessment and Plan: baseline creatinine runs ~ 1.4 - 1.7mg/dl this causes him to fluctuate between CKD stage 3A and stage 3B due to hypertension and chronic pre renal azotemia due to his poorly functioning heart (3) Fever: Code(s): R50.9 - Fever, unspecified Status: Acute Assessment and Plan: etiology work-up so far negative follow symptoms (4) Acute on chronic congestive heart failure: Qualifiers: Heart failure type: right-sided Qualified Code(s): I50.813 - Acute on chronic right heart failure Code(s): I50.9 - Heart failure, unspecified Status: Acute Assessment and Plan: due to right sided heart failure complicated by moderate pulmonary HTN continue aggressive diuretic therapy almost 39.5L negative since admission (which is about 87 pounds!!!) (5) Obstructive sleep apnea: Code(s): G47.33 - Obstructive sleep apnea (adult) (pediatric) Status: Chronic Assessment and Plan: continue CPAP therapy reports compliance at home (6) Fall from ground level: Code(s): W18.30XA - Fall on same level, unspecified, initial encounter Status: Acute Assessment and Plan: 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 Subjective Date/time seen: 04/27/22 11:03 Transitioned to oral diuretics yesterday and continues to make reasonable urine output; no apparent distress expressed at the time of my visit; feels about the same if not a bit better; renal function/creatinine appear relatively stable by recent testing. Exam Narrative: General: Large WD/WN male in NAD Heart: normal S1 and S2; no rub Lungs: clear but decreased at bases Abdomen: soft, nontender, nondistended, positive bowel sounds Extremities: no cyanosis or clubbing; 1 - 2+ edema Skin: chronic changes apparent Objective Data Vital Signs Vital Signs: Vital Signs Temp Pulse Resp BP Pulse Ox O2 Del Method O2 Flow Rate 04/27/22 08:00 Room Air 04/27/22 08:31 78 04/27/22 06:00 96.6 F L 54 L 18 115/57 L 100 04/27/22 02:10 91 96 CPAP 04/26/22 23:00 97 CPAP 3 04/26/22 23:00 100 97 CPAP 04/26/22 22:00 97.5 F L 78 20 122/56 L 95 04/26/22 20:46 98.7 F 46 L 20 125/56 L 96 Room Air 04/26/22 22:04 77 04/26/22 22:03 77 04/26/22 20:00 46 L 20 96 Room Air 04/26/22 20:47 98.7 F 46 L 20 125/56 L 96 04/26/22 14:00 97.7 F 54 L 12 122/56 L 96 Intake/Output Intake/Output: Intake & Output 04/24/22 04/25/22 04/26/22 04/27/22 23:59 23:59 23:59 23:59 Intake Total 1270 2020 1120 462 Output Total 1605 1742 9887 2220 [facility] -[phone] Meds/Results Medications: Active Medications Generic Name Dose Route Start Last Admin Trade Name Freq PRN Reason Stop Dose Admin Acetaminophen 1,000 mg 04/11/22 23:42 04/27/22 08:39 Acetaminophen 500 Mg Tablet PO 1,000 mg Q6H PRN Administration Pain Rated 1-3 Acetazolamide 500 mg 04/21/22 13:00 04/27/22 12
--- NOTE | 2022-04-27 14:25 | PM.DS ---
DS: Admitting Diagnosis Discharge Date 04/28/22 Admitting Diagnosis anasarca DS: Discharge Diagnosis Discharge Diagnosis (1) Acute on chronic congestive heart failure: Qualifiers: Heart failure type: right-sided Qualified Code(s): I50.813 - Acute on chronic right heart failure Code(s): I50.9 - Heart failure, unspecified Status: Acute Assessment and Plan: Continuing to diurese well, much improved, appreciate cardiology consultation Anticipate discharge tomorrow on oral diuretics to rehab facility (2) Chronic kidney disease: Code(s): N18.9 - Chronic kidney disease, unspecified Status: Acute Assessment and Plan: Appreciate nephrology consultation, appears to be at dry weight (3) Fall from ground level: Code(s): W18.30XA - Fall on same level, unspecified, initial encounter Status: Acute Assessment and Plan: Slid down landing on his buttocks. No head injury. Continue PT/OT. Increase time out of bed as patient allows. (4) Chronic acquired lymphedema: Code(s): I89.0 - Lymphedema, not elsewhere classified Status: Acute Assessment and Plan: Worsened from CHF and improved (5) Chronic anemia: Code(s): D64.9 - Anemia, unspecified Status: Acute Assessment and Plan: Baseline Hgb 9-11 Hgb stable at 9-10 range now Chronic anemia probably related to CKD Follow (6) Obstructive sleep apnea: Code(s): G47.33 - Obstructive sleep apnea (adult) (pediatric) Status: Chronic Assessment and Plan: No signs of hypoxia noted on the ApneaLink when the test was done with home unit in place and on 4L. Patient is compliant with BiPAP. Continue the same here. (7) Atrial fibrillation: Qualifiers: Atrial fibrillation type: longstanding persistent Qualified Code(s): I48.11 - Longstanding persistent atrial fibrillation Code(s): I48.91 - Unspecified atrial fibrillation Status: Acute Assessment and Plan: EKG showing chronic AFib. Patient's rate controlled. Continue Eliquis. Continue metoprolol for rate control. (8) Fever: Code(s): R50.9 - Fever, unspecified Status: Acute Assessment and Plan: Patient had low grade fever on 04/19. CRP normal. LE venous doppler negative for DVT. CXR reviewed personally and the lung wolf are clear without infiltrate (radiology concurs). UA clear. CT A/P results reviewed personally showing bilateral pleural effusions and mild splenomegaly but no clear etiology of his persistent abdominal pain. +BMs. Fever has not recurred. Continue to monitor. (9) Depression: Code(s): F32.A - Depression, unspecified Status: Acute Assessment and Plan: start fluoxetine 20 mg daily Plan DVT prophylaxis with Eliquis Code status full code DS: Summary Hospital Course Hospital Course: 72-year-old male with hypertension, dyslipidemia, heart failure with preserved ejection fraction atrial fibrillation on chronic anticoagulation, hypothyroidism, sleep apnea, GERD, chronic kidney disease, and chronic lymphedema of the lower extremities who presented to the emergency department via for evaluation after a ground level fall. He has been wheelchair bound and uses a motorized scooter at home, transferring the 8 of a slide board into bed and to the commode. He had a routine appointment with Dr. Allen today and his friend came over to take him to that appointment. The patient had difficulties getting up into his F150 truck, even with the help of his son and friend, and he eventually tired when trying to pull himself up instead he slid down onto the ground onto his buttocks. EMS was called for lift assist and he was brought in for evaluation due to increasing weakness. Luckily he did not injure himself in the fall and there was no head trauma or loss of consciousness. Per patient report he required temporary dialysis in the spring
--- NOTE | 2022-04-27 15:22 | PCPTNOTE ---
Attempted PT re-evaluation, pt refused due to possible discharge this date. RN aware. Will follow.
[2022-04-27 16:35] LABS: EDCOVIDSCREEN Negative (Negative)
--- NOTE | 2022-04-27 17:38 | PCCCNOTE ---
Fax'd Negative COVID result to [facility]
--- NOTE | 2022-04-27 18:14 | PM.IMPN ---
Progress Note: A&P Assessment and Plan (1) Acute on chronic congestive heart failure: Qualifiers: Heart failure type: right-sided Qualified Code(s): I50.813 - Acute on chronic right heart failure Code(s): I50.9 - Heart failure, unspecified Status: Acute Assessment and Plan: Continuing to diurese well, much improved, appreciate cardiology consultation Anticipate discharge tomorrow on oral diuretics to rehab facility (2) Chronic kidney disease: Code(s): N18.9 - Chronic kidney disease, unspecified Status: Acute Assessment and Plan: Appreciate nephrology consultation, appears to be at dry weight (3) Fall from ground level: Code(s): W18.30XA - Fall on same level, unspecified, initial encounter Status: Acute Assessment and Plan: Slid down landing on his buttocks. No head injury. Continue PT/OT. Increase time out of bed as patient allows. (4) Chronic acquired lymphedema: Code(s): I89.0 - Lymphedema, not elsewhere classified Status: Acute Assessment and Plan: Worsened from CHF and improved (5) Chronic anemia: Code(s): D64.9 - Anemia, unspecified Status: Acute Assessment and Plan: Baseline Hgb 9-11 Hgb stable at 9-10 range now Chronic anemia probably related to CKD Follow (6) Obstructive sleep apnea: Code(s): G47.33 - Obstructive sleep apnea (adult) (pediatric) Status: Chronic Assessment and Plan: No signs of hypoxia noted on the ApneaLink when the test was done with home unit in place and on 4L. Patient is compliant with BiPAP. Continue the same here. (7) Atrial fibrillation: Qualifiers: Atrial fibrillation type: longstanding persistent Qualified Code(s): I48.11 - Longstanding persistent atrial fibrillation Code(s): I48.91 - Unspecified atrial fibrillation Status: Acute Assessment and Plan: EKG showing chronic AFib. Patient's rate controlled. Continue Eliquis. Continue metoprolol for rate control. (8) Fever: Code(s): R50.9 - Fever, unspecified Status: Acute Assessment and Plan: Patient had low grade fever on 04/19. CRP normal. LE venous doppler negative for DVT. CXR reviewed personally and the lung wolf are clear without infiltrate (radiology concurs). UA clear. CT A/P results reviewed personally showing bilateral pleural effusions and mild splenomegaly but no clear etiology of his persistent abdominal pain. +BMs. Fever has not recurred. Continue to monitor. (9) Depression: Code(s): F32.A - Depression, unspecified Status: Acute Assessment and Plan: start fluoxetine 20 mg daily Plan DVT prophylaxis with Eliquis Code status full code Subjective Date/time seen: 04/27/22 18:15 Interval history: 72yo male with CHF, AFib, lymphedema and CKD here for fall and found to have CHF exacerbation. No overnight events noted. No chest pain or shortness of breath. No nausea, vomiting or diarrhea. No fevers or chills. Ready to go to rehab tomorrow. Review of Systems Review of Systems: 12 point review of systems was assessed and was negative except as noted in the HPI Exam Narrative: General: No acute distress, alert and oriented per baseline HEENT: Atraumatic, normocephalic, mucous membranes moist CV: Regular rate and rhythm, S1, S2 Lungs: Clear to auscultation bilaterally, no rales or crackles noted, no wheezes, good air entry Abdomen: Soft, nontender, nondistended Extremities: Anasarca significantly improved, Some edema in lower extremities, none noted in abdomen Psych: Euthymic, normal affect Objective Data Vital Signs Vital Signs: Vital Signs - 24 hr 04/26/22 20:47 04/26/22 20:00 04/26/22 22:03 Temperature 98.7 F Pulse Rate 46 L 46 L 77 Respiratory Rate 20 20 Blood Pressure 125/56 L Pulse Oximetry 96 96 Oxygen Delivery Room Air Oxygen Flow Rate 01
[2022-04-27] MEDS: TEMAZEPAM (*CRX) 7.5 MG CAPSULE PO (20:06)
[2022-04-28 01:44] VITALS: PULSE 87; O2SAT 96
[2022-04-28] MEDS: LEVOTHYROXINE SODIUM 100 MCG TABLET 200 MCG PO (05:37)
[2022-04-28] MEDS: ACETAMINOPHEN 500 MG TABLET 1000 MG PO (05:37)
[2022-04-28 06:00] VITALS: BP 118/71; PULSE 54; RESP 18; TEMP 35.1; O2SAT 100
[2022-04-28 06:49] LABS: Basophils Absolute Auto 0.1 K/mm3 (0.0-0.1); Basophils Percent Auto 1.4 % (0.2-1.2); Eosinophils Absolute Auto 0.5 K/mm3 (0-0.3); Eosinophils Percent Auto 9.4 % (0-4.4); Hematocrit 41.3 % (42.0-52.0); Hemoglobin 11.1 g/dL (14.0-18.0); Immature Granulocyte Absolute 0.02 K/mm3 (0.00-0.031); Immature Granulocyte Percent A 0.4 % (0-0.5); Lymphocytes Absolute Auto 0.74 K/mm3 (0.9-3.2); Lymphocytes Percent Auto 13.1 % (18.3-44.2); Mean Corpuscular HGB Conc 26.9 g/dl (32-36); Mean Corpuscular Hemoglobin 23.4 pg (26-34); Mean Corpuscular Volume 87.1 fl (80-100); Mean Platelet Volume 11.5 fl (7.4-10.4); Monocytes Absolute Auto 0.7 K/mm3 (0.1-0.6); Monocytes Percent Auto 12.9 % (2.6-8.5); Neutrophils Absolute Auto 3.6 K/mm3 (1.3-6.7); Neutrophils Percent Auto 62.8 % (45.5-73.1); Platelet Count Result 378 k/mm3 (150-375); Red Blood Count 4.74 M/mm3 (4.6-6.20); Red Cell Distribution Width 17.8 % (11.5-14.5); White Blood Count 5.7 K/mm3 (4.5-10.0)
[2022-04-28 07:01] LABS: Alanine Aminotransferase 12 U/L (6-50); Albumin Level 3.9 g/dL (3.5-5.1); Alkaline Phosphatase 59 U/L (38-126); Anion Gap 11 mmol/L (8-16); Aspartate Amino Transferase 23 U/L (17-59); Bilirubin,Total 0.9 mg/dL (0.2-1.3); Blood Urea Nitrogen 40 mg/dL (9-20); Calcium 8.6 mg/dL (8.4-10.2); Carbon Dioxide 33 mmol/L (22-30); Chloride 97 mmol/L (98-107); Estimated CRCL calculation 34 ml/min; Estimated Glomerular Filt Rate 23; Glucose 100 mg/dL (65-110); Potassium 3.1 mmol/L (3.4-5.0); Sodium 141 mmol/L (137-145)
[2022-04-28 07:32] LABS: Ovalocytes 2+ (NORMAL); Platelet Estimate Adequate (Adequate); Poikilocytosis 1+ (NORMAL)
[2022-04-28 07:33] LABS: Anisocytosis 1+ (NORMAL); Schistocytes None Seen (NORMAL)
[2022-04-28 08:18] VITALS: PULSE 80
[2022-04-28] MEDS: PANTOPRAZOLE 40 MG TABLET PO (08:18)
[2022-04-28] MEDS: ASPIRIN 81 MG ENTERIC TABLET PO (08:18)
[2022-04-28] MEDS: TAMSULOSIN HCL 0.4 MG CAPSULE PO (08:18)
[2022-04-28] MEDS: GABAPENTIN 300 MG CAPSULE PO ×2 (08:18→12:13)
[2022-04-28] MEDS: FLUoxetine HCL 20 MG CAPSULE PO (08:18)
[2022-04-28] MEDS: METOPROLOL TARTRATE 50 MG TAB PO (08:18)
[2022-04-28] MEDS: APIXABAN 5 MG TABLET PO (08:18)
[2022-04-28] MEDS: acetaZOLAMIDE TAB 250 MG TABLET 500 MG PO ×2 (08:18→12:13)
[2022-04-28] MEDS: FERROUS SULFATE 324 MG TABLET PO (08:18)
[2022-04-28] MEDS: POTASSIUM CHLORIDE 20 MEQ TABLET.ER 40 MEQ PO (08:18)
[2022-04-28] MEDS: BUMETANIDE 1 MG TABLET 3 MG PO ×2 (08:18→12:13)
[2022-04-28] MEDS: LORATADINE 10 MG TABLET PO (08:18)
[2022-04-28] MEDS: SPIRONOLACTONE 25 MG TABLET PO (08:18)
[2022-04-28] MEDS: minoxidiL 10 MG TABLET PO (08:18)
[2022-04-28] MEDS: EUCERIN CREAM 454 GM JAR 1 APPLIC TOPICAL (08:18)
[2022-04-28] MEDS: FLUTICASONE PROPIONATE 0.05% NA SPR 16 GM BTL (*BKC) 1 SPRAY NASAL (08:19)
[2022-04-28] MEDS: polyethylene glycoL 3350 17 GM POWD.PACK PO (08:20)
--- NOTE | 2022-04-28 10:09 | PM.PNCARD ---
Progress Note: A&P Assessment and Plan (1) Volume overload: Code(s): E87.70 - Fluid overload, unspecified Status: Acute Plan 72-year-old man with tendency to have severe right-sided heart failure with obesity and diastolic dysfunction as well. It appears that he has achieved maximum hospital benefit he is much improved with diuresis for the last 2-3 weeks in the hospital. He is anticipating discharge today to local detention facility. He is on oral diuretic regimen and this appears to be appropriate. I will insure that the office has appropriate/timely follow-up scheduled with him with Dr. Allen, my partner who sees him chronically. Discharge today is okay with me Anirudh Wise MD [facility] Subjective Date/time seen: date of service:04/28/22 10:09 Interval history: Follow-up visit in this 72-year-old man with: Severe right-sided heart failure with recurrent admissions with volume overload. Patient is feeling relatively well this morning after this lengthy hospitalization is anticipating discharge to local detention [facility] for [facility]hab today. He has been hospitalized now for over 2 weeks getting diuresed. Exam Narrative: Very pleasant morbidly obese male lying supine in bed breathing comfortably on room air speaking in full sentences Const: General: comfortable, no acute distress, alert and awake; No confusion Orientation/consciousness: patient oriented x3 and No confusion Other: Morbidly obese HENMT: Head: normal to inspection Eyes: General: appearance normal, both eyes and all related structures Pupils: Equal, round and reactive pupils present Neck: Neck: normal visual inspection, supple and no JVD Carotids: normal carotid upstroke Other: Difficult to assess JVD due to body habitus Resp: Effort & Inspection: normal respiratory effort Auscultation: clear to auscultation bilaterally, no crackles, no rales, no wheezes and diminished lung sounds Other: Diminished breath sounds due to body habitus no crackles, rales, wheezes anteriorly. Cardio: Rate: regular rate Rhythm: regular rhythm and abnormal rhythm irregularly irregular Heart sounds: S1 normal heart sound present, S2 normal heart sound present and no murmurs GI: Auscultation: normal bowel sounds Other: Morbidly obese, subcutaneous edema Skin: General skin exam: normal color Other: Thickened skin, dry, Chronic venous stasis changes noted bilateral lower extremities wrinkling of the skin bilateral lower extremities Neuro: General: patient oriented x3 and No confusion Cranial nerves: Yes Equal, round and reactive pupils present and Yes Normal hearing present Extrem: General: normal to inspection Other: Moderate bilateral lower extremity edema extending to the abdomen, and skin changes associated with chronic edema, venous stasis Psych: Appearance: grossly normal Mental Status: mental status grossly normal Affect: normal affect Other: Very pleasant and cooperative Objective Data Vital Signs Vital Signs: Vital Signs - 24 hr 04/27/22 14:00 04/27/22 20:05 04/27/22 20:07 Temperature 37.1 C 36.8 C Pulse Rate 56 L 91 91 Respiratory Rate 14 18 Blood Pressure 115/48 L 125/75 Pulse Oximetry 96 95 Oxygen Delivery 04/27/22 20:00 04/27/22 21:46 04/28/22 01:44 Temperature Pulse Rate 89 87 Respiratory Rate Blood Pressure Pulse Oximetry 95 98 96 Oxygen Delivery Room Air CPAP CPAP 04/28/22 06:00 04/28/22 08:18 04/28/22 08:00 Temperature 35.1 C L Pulse Rate 54 L 80 Respiratory Rate 18 Blood Pressure 118/71 Pulse Oximetry 100 Oxygen Delivery Room Air Intake/Output Intake/Output: Intake & Output 04/25/22 04/26/22 04/27/22 04/28/22 23:59 23:59 23:59 23:59 Intake Total 2019 1119 1234 594 Output Total 7731 3487 2825 750 [facility] -[phone] Meds/Results Medications: Active Medications Generic Name Dose Route Start Last Admin Trade Name Freq
[2022-04-28] MEDS: POTASSIUM CHLORIDE 20 MEQ TABLET 40 MEQ PO (12:13)
[2022-04-28] MEDS: ONDANSETRON INJ 4 MG/2 ML VIAL IV PUSH (13:53)
[2022-04-28 14:00] VITALS: BP 114/55; PULSE 55; RESP 14; TEMP 36.6; O2SAT 96
== END 2022-04-28 14:40 | DRG 291 ==
LOC: ANHED 13:55 → ANH3MEDSUR 14:10
PROVIDERS: Internal Medicine; Internal Medicine Nephrology; Nurse Practitioner; Physician Assistant; Admitting Provider Internal Medicine; Emergency Provider Emergency Medicine; PCP Family Medicine; Visit Provider Student in an Organized Health Care Education/Training Program
DX: I13.0 Hypertensive heart and chronic kidney disease with heart failure and stage 1 through stage 4 chronic kidney disease, or unspecified chronic kidney disease (principal); I50.33 Acute on chronic diastolic (congestive) heart failure; I48.11 Longstanding persistent atrial fibrillation; N17.9 Acute kidney failure, unspecified; Z68.43 Body mass index [BMI] 50.0-59.9, adult; N18.30 Chronic kidney disease, stage 3 unspecified; I87.2 Venous insufficiency (chronic) (peripheral); I89.0 Lymphedema, not elsewhere classified; I27.20 Pulmonary hypertension, unspecified; D63.1 Anemia in chronic kidney disease; E87.6 Hypokalemia; E78.5 Hyperlipidemia, unspecified; E03.9 Hypothyroidism, unspecified; E87.70 Fluid overload, unspecified; E66.01 Morbid (severe) obesity due to excess calories; K21.9 Gastro-esophageal reflux disease without esophagitis; L71.8 Other rosacea; R50.9 Fever, unspecified; M54.9 Dorsalgia, unspecified; G89.29 Other chronic pain; G62.9 Polyneuropathy, unspecified; G47.33 Obstructive sleep apnea (adult) (pediatric); F32.A Depression, unspecified; F41.9 Anxiety disorder, unspecified; Z20.822 Contact with and (suspected) exposure to COVID-19; Z79.82 Long term (current) use of aspirin; Z99.3 Dependence on wheelchair; Z87.891 Personal history of nicotine dependence; Z79.01 Long term (current) use of anticoagulants
CPT/HCPCS: 36415; 71045; 71046; 71250; 74176; 76705; 76775; 80048; 80053; 81003; 81050; 82436; 82570; 82948; 83690; 83735; 83880; 84100; 84132; 84156; 84300; 84439; 84443; 84484; 84540; 85025; 85027; 85610; 85730; 85999; 86140; 87040; 87426; 87636; 87637; 93005; 93970; 94762; 96365; 96367; 96375; 97110; 97161; 97165; 97530; 97535; 99285; A9270; C8929; C9803; G0378; J0456; J0696; J1940; J2405; Q9957

== ENCOUNTER 2022-07-21 10:27 | Outpatient (CLI) | payer MEDICARE, OTHER, SELFPAY ==
--- NOTE | ~2022-07-21 | XR_ITS ---
EXAM: XR sacrum coccyx min 2V DATE: 07/21/2022 11:32 HISTORY: CHRONIC PAIN, NO INJURY . COMPARISON: CT abdomen and pelvis 04/20/2022. FINDINGS: Decreased mineralization. Degenerative changes in the lower lumbar spine. Partial bilatera l L5 sacralization. 3 mm anterolisthesis at L4-5. Multilevel lower lumbar facet sclerosis and hypertr ophy. Degenerative change and partial fusion in the right SI joint. IMPRESSION: Grade 1 anterolisthesis at L4-5. Moderate-severe lower lumbar facet arthropathy. Bilatera l partial sacralization of L5 which can be a source of chronic pain. Right sacroiliitis with partial fusion. Reviewed, dictated and finalized at location K. IMPRESSION: Grade 1 anterolisthesis at L4-5. Moderate-severe lower lumbar facet arthropathy. Bilateral partial sacralization of L5 which can be a source of ch ronic pain. Right sacroiliitis with partial fusion.
[2022-07-21 11:49] LABS: Creatinine Urine 32.4 mg/dL; Total Protein Urine Random 10 mg/dL; Ur Ttl Prot Creatinine Ratio 0.31 mg/mg (0-0.20)
[2022-07-21 12:21] LABS: Alanine Aminotransferase 11 U/L (6-50); Albumin Level 4.5 g/dL (3.5-5.1); Alkaline Phosphatase 53 U/L (38-126); Anion Gap 10 mmol/L (8-16); Aspartate Amino Transferase 16 U/L (17-59); Bilirubin,Total 0.7 mg/dL (0.2-1.3); Blood Urea Nitrogen 33 mg/dL (9-20); Calcium 8.7 mg/dL (8.4-10.2); Carbon Dioxide 26 mmol/L (22-30); Chloride 103 mmol/L (98-107); Estimated Glomerular Filt Rate 37; Glucose 104 mg/dL (65-110); Potassium 4.6 mmol/L (3.4-5.0); Sodium 139 mmol/L (137-145)
[2022-07-21 12:22] LABS: Albumin Level 4.5 g/dL (3.5-5.1); Anion Gap 10 mmol/L (8-16); Blood Urea Nitrogen 33 mg/dL (9-20); Calcium 8.6 mg/dL (8.4-10.2); Carbon Dioxide 25 mmol/L (22-30); Chloride 102 mmol/L (98-107); Estimated Glomerular Filt Rate 37; Glucose 104 mg/dL (65-110); Phosphorus 4.4 mg/dL (2.5-4.5); Potassium 4.5 mmol/L (3.4-5.0); Sodium 137 mmol/L (137-145)
[2022-07-21 14:21] LABS: Parathyroid Intact 98.4 pg/mL (7.5-53.5)
[2022-07-21 14:27] LABS: Vitamin D 25 Hydroxy 47.6 ng/mL
== END 2022-07-21 10:28 | disposition home or self-care (01) ==
PROVIDERS: Internal Medicine Nephrology; Student in an Organized Health Care Education/Training Program; PCP Family Medicine; Visit Provider Family Medicine
DX: M53.3 Sacrococcygeal disorders, not elsewhere classified (principal); E87.6 Hypokalemia; N17.9 Acute kidney failure, unspecified; E55.9 Vitamin D deficiency, unspecified; N25.81 Secondary hyperparathyroidism of renal origin; I12.9 Hypertensive chronic kidney disease with stage 1 through stage 4 chronic kidney disease, or unspecified chronic kidney disease; N18.4 Chronic kidney disease, stage 4 (severe)
CPT/HCPCS: 36415; 72220; 80053; 80069; 82306; 82570; 83970; 84156

== ENCOUNTER 2022-09-15 12:19 | Outpatient (CLI) | payer MEDICARE, OTHER, SELFPAY ==
[2022-09-15 13:57] LABS: Albumin Level 4.3 g/dL (3.5-5.1); Anion Gap 9 mmol/L (8-16); Blood Urea Nitrogen 36 mg/dL (9-20); Calcium 8.5 mg/dL (8.4-10.2); Carbon Dioxide 23 mmol/L (22-30); Chloride 107 mmol/L (98-107); Estimated Glomerular Filt Rate 40; Glucose 92 mg/dL (65-110); Phosphorus 4.3 mg/dL (2.5-4.5); Potassium 4.2 mmol/L (3.4-5.0); Sodium 139 mmol/L (137-145)
[2022-09-15 14:11] LABS: Creatinine Urine 82.1 mg/dL; Total Protein Urine Random 10 mg/dL; Ur Ttl Prot Creatinine Ratio 0.12 mg/mg (0-0.20)
== END 2022-09-15 12:20 | disposition home or self-care (01) ==
PROVIDERS: PCP Family Medicine; Visit Provider Internal Medicine Nephrology
DX: I12.9 Hypertensive chronic kidney disease with stage 1 through stage 4 chronic kidney disease, or unspecified chronic kidney disease (principal); N18.32 Chronic kidney disease, stage 3b
CPT/HCPCS: 36415; 80069; 82570; 84156

== ENCOUNTER 2022-09-27 11:16 | Outpatient (CLI) | payer MEDICARE, OTHER, SELFPAY ==
[2022-09-27 12:49] LABS: Anion Gap 10 mmol/L (8-16); Blood Urea Nitrogen 58 mg/dL (9-20); Calcium 9.2 mg/dL (8.4-10.2); Carbon Dioxide 36 mmol/L (22-30); Chloride 88 mmol/L (98-107); Estimated Glomerular Filt Rate 31; Glucose 108 mg/dL (65-110); Magnesium 2.9 mg/dL (1.6-2.3); Potassium 3.4 mmol/L (3.4-5.0); Sodium 134 mmol/L (137-145)
== END 2022-09-27 11:17 | disposition home or self-care (01) ==
PROVIDERS: PCP Family Medicine; Visit Provider Internal Medicine Cardiovascular Disease
DX: I50.32 Chronic diastolic (congestive) heart failure (principal)
CPT/HCPCS: 36415; 80048; 83735

== ENCOUNTER 2022-10-09 11:46 | Outpatient (CLI) | payer MEDICARE, OTHER, SELFPAY ==
[2022-10-09 12:36] LABS: Albumin Level 4.8 g/dL (3.5-5.1); Blood Urea Nitrogen 61 mg/dL (9-20); Calcium 9.2 mg/dL (8.4-10.2); Carbon Dioxide > 40 mmol/L (22-30); Chloride 85 mmol/L (98-107); Estimated Glomerular Filt Rate 33; Glucose 104 mg/dL (65-110); Magnesium 2.7 mg/dL (1.6-2.3); Phosphorus 4.3 mg/dL (2.5-4.5); Potassium 2.8 mmol/L (3.4-5.0); Sodium 133 mmol/L (137-145)
== END 2022-10-09 11:47 | disposition home or self-care (01) ==
LOC: ANHLAB 11:48
PROVIDERS: PCP Family Medicine; Visit Provider Internal Medicine Nephrology
DX: N18.32 Chronic kidney disease, stage 3b (principal)
CPT/HCPCS: 36415; 80069; 83735

== ENCOUNTER 2022-10-16 16:24 | Outpatient (CLI) | payer MEDICARE, OTHER, SELFPAY ==
[2022-10-16 17:24] LABS: Anion Gap 10 mmol/L (8-16); Blood Urea Nitrogen 53 mg/dL (9-20); Calcium 9.1 mg/dL (8.4-10.2); Carbon Dioxide 36 mmol/L (22-30); Chloride 89 mmol/L (98-107); Estimated Glomerular Filt Rate 35; Glucose 118 mg/dL (65-110); Potassium 2.9 mmol/L (3.4-5.0); Sodium 135 mmol/L (137-145)
== END 2022-10-16 16:25 | disposition home or self-care (01) ==
LOC: ANHLAB 16:26
PROVIDERS: PCP Family Medicine; Visit Provider Internal Medicine Cardiovascular Disease
DX: I50.32 Chronic diastolic (congestive) heart failure (principal)
CPT/HCPCS: 36415; 80048

== ENCOUNTER 2022-10-23 13:01 | Outpatient (CLI) | payer MEDICARE, OTHER, SELFPAY ==
[2022-10-23 14:00] LABS: Albumin Level 4.6 g/dL (3.5-5.1); Anion Gap 13 mmol/L (8-16); Blood Urea Nitrogen 49 mg/dL (9-20); Calcium 8.9 mg/dL (8.4-10.2); Carbon Dioxide 28 mmol/L (22-30); Chloride 94 mmol/L (98-107); Estimated Glomerular Filt Rate 37; Glucose 113 mg/dL (65-110); Magnesium 2.6 mg/dL (1.6-2.3); Phosphorus 3.7 mg/dL (2.5-4.5); Potassium 3.3 mmol/L (3.4-5.0); Sodium 135 mmol/L (137-145)
== END 2022-10-23 13:02 | disposition home or self-care (01) ==
PROVIDERS: PCP Family Medicine; Visit Provider Internal Medicine Nephrology
DX: E87.6 Hypokalemia (principal); N18.32 Chronic kidney disease, stage 3b
CPT/HCPCS: 36415; 80069; 83735

== ENCOUNTER 2022-11-13 12:13 | Outpatient (CLI) | payer MEDICARE, OTHER, SELFPAY ==
[2022-11-13 14:54] LABS: Anion Gap 9 mmol/L (8-16); Blood Urea Nitrogen 47 mg/dL (9-20); Calcium 9.4 mg/dL (8.4-10.2); Carbon Dioxide 37 mmol/L (22-30); Chloride 83 mmol/L (98-107); Estimated Glomerular Filt Rate 27; Glucose 102 mg/dL (65-110); Potassium 2.8 mmol/L (3.4-5.0); Sodium 129 mmol/L (137-145)
== END 2022-11-13 12:14 | disposition home or self-care (01) ==
LOC: ANHLAB 12:20
PROVIDERS: PCP Family Medicine; Visit Provider Internal Medicine Cardiovascular Disease
DX: E87.1 Hypo-osmolality and hyponatremia (principal)
CPT/HCPCS: 36415; 80048

== ENCOUNTER 2022-11-20 11:33 | Outpatient (CLI) | payer MEDICARE, OTHER, SELFPAY ==
[2022-11-20 14:27] LABS: Basophils Absolute Auto 0.1 K/mm3 (0.0-0.1); Basophils Percent Auto 1.2 % (0.2-1.2); Eosinophils Absolute Auto 0.3 K/mm3 (0-0.3); Eosinophils Percent Auto 3.5 % (0-4.4); Hematocrit 45.9 % (42.0-52.0); Hemoglobin 14.2 g/dL (14.0-18.0); Immature Granulocyte Absolute 0.02 K/mm3 (0.00-0.031); Immature Granulocyte Percent A 0.3 % (0-0.5); Lymphocytes Absolute Auto 0.53 K/mm3 (0.9-3.2); Lymphocytes Percent Auto 7.2 % (18.3-44.2); Mean Corpuscular HGB Conc 30.9 g/dl (32-36); Mean Corpuscular Hemoglobin 29.7 pg (26-34); Mean Platelet Volume 10.7 fl (7.4-10.4); Monocytes Absolute Auto 0.6 K/mm3 (0.1-0.6); Monocytes Percent Auto 8.3 % (2.6-8.5); Neutrophils Absolute Auto 5.9 K/mm3 (1.3-6.7); Neutrophils Percent Auto 79.5 % (45.5-73.1); Platelet Count Result 263 k/mm3 (150-375); Red Blood Count 4.78 M/mm3 (4.6-6.20); White Blood Count 7.4 K/mm3 (4.5-10.0)
[2022-11-20 14:29] LABS: Alanine Aminotransferase 15 U/L (6-50); Albumin Level 4.5 g/dL (3.5-5.1); Alkaline Phosphatase 50 U/L (38-126); Anion Gap 10 mmol/L (8-16); Aspartate Amino Transferase 34 U/L (17-59); Bilirubin,Total 0.7 mg/dL (0.2-1.3); Blood Urea Nitrogen 33 mg/dL (9-20); Calcium 8.9 mg/dL (8.4-10.2); Carbon Dioxide 25 mmol/L (22-30); Chloride 100 mmol/L (98-107); Cholesterol 153 mg/dL (0-200); Estimated Glomerular Filt Rate 31; Glucose 120 mg/dL (65-110); HDL Direct 27 mg/dL; Potassium 5.6 mmol/L (3.4-5.0); Sodium 135 mmol/L (137-145); Triglycerides 209 mg/dL (<150)
[2022-11-20 14:40] LABS: Albumin Level 4.3 g/dL (3.5-5.1); Anion Gap 8 mmol/L (8-16); Blood Urea Nitrogen 33 mg/dL (9-20); Calcium 8.8 mg/dL (8.4-10.2); Carbon Dioxide 24 mmol/L (22-30); Chloride 100 mmol/L (98-107); Estimated Glomerular Filt Rate 29; Glucose 119 mg/dL (65-110); Phosphorus 4.3 mg/dL (2.5-4.5); Potassium 5.5 mmol/L (3.4-5.0); Sodium 132 mmol/L (137-145)
[2022-11-20 14:41] LABS: LDL Cholesterol Direct 91 mg/dL
[2022-11-20 14:59] LABS: Prostate Specific Antigen 0.6 ng/mL (< OR = 4.0)
[2022-11-20 15:11] LABS: Creatinine Urine 201.5 mg/dL; Total Protein Urine Random 17 mg/dL; Ur Ttl Prot Creatinine Ratio 0.08 mg/mg (0-0.20)
[2022-11-20 15:48] LABS: Vitamin D 25 Hydroxy 40.8 ng/mL
[2022-11-20 16:31] LABS: Hemoglobin A1C 5.5 % (<5.7)
== END 2022-11-20 11:34 | disposition home or self-care (01) ==
PROVIDERS: Internal Medicine Nephrology; PCP Family Medicine; Visit Provider Family Medicine
DX: I12.9 Hypertensive chronic kidney disease with stage 1 through stage 4 chronic kidney disease, or unspecified chronic kidney disease (principal); N18.32 Chronic kidney disease, stage 3b; E78.5 Hyperlipidemia, unspecified; E53.8 Deficiency of other specified B group vitamins; Z12.5 Encounter for screening for malignant neoplasm of prostate; E03.9 Hypothyroidism, unspecified; Z00.00 Encounter for general adult medical examination without abnormal findings; R73.9 Hyperglycemia, unspecified; I50.9 Heart failure, unspecified; E55.9 Vitamin D deficiency, unspecified
CPT/HCPCS: 36415; 80053; 80061; 80069; 82306; 82570; 82607; 83036; 84153; 84156; 84443; 85025; G0103

== ENCOUNTER 2022-12-21 11:41 | Outpatient (CLI) | payer MEDICARE, OTHER, SELFPAY ==
[2022-12-21 12:25] LABS: Anion Gap 12 mmol/L (8-16); Blood Urea Nitrogen 55 mg/dL (9-20); Calcium 9.5 mg/dL (8.4-10.2); Carbon Dioxide 32 mmol/L (22-30); Chloride 90 mmol/L (98-107); Estimated Glomerular Filt Rate 25; Glucose 127 mg/dL (65-110); Potassium 3.9 mmol/L (3.4-5.0); Sodium 134 mmol/L (137-145)
== END 2022-12-21 11:42 | disposition home or self-care (01) ==
LOC: ANHLAB 11:44
PROVIDERS: PCP Family Medicine; Visit Provider Internal Medicine Cardiovascular Disease
DX: I50.32 Chronic diastolic (congestive) heart failure (principal); E87.6 Hypokalemia
CPT/HCPCS: 36415; 80048

== ENCOUNTER 2023-01-18 09:14 | Outpatient (CLI) | payer MEDICARE, OTHER, SELFPAY ==
--- NOTE | 2023-02-05 21:41 | WPDSLEEPSTUD ---
Sleep Study Date of Study: 01/18/23 Ordering Provider: Ashley Enriquez MD Interpreting Physician: Ailyn Corrales, DO Sleep Study Type: CPAP Titration Height: 1.85 m Weight: 140.614 kg Body Mass Index: 40.8 Neck Circumference (inches): 21 Kramer: 6 Reason for Sleep Study 01/19/2015-? CPAP retitration BMI is 52.8;? difficult titration however he had a pressure of BiPAP / that seemed to be acceptable 04/10/2005? split night study; AHI is 102.8? with CPAP 18 optimal pressure The patient has been on BPAP 21/17 cm H2O with 4 lpm of O2. His compliance data showed a residual AHI of 13.1. His BPAP machine quit working suddenly and he is currently using a Zopim machine. Sleep History The patient is a 72-year-old male with AMELIA on BPAP with supplemental oxygen that had a sleep study ordered by his health therapist to restart him on PAP therapy after his machine malfunctioned. He had an elevated residual AHI and it was unable to be determined whether his events were central or obstructive in nature. the patient occasionally awakens from sleep short of breath. He denies awakening at night with heartburn, belching or cough. He frequently snores. He denies having trouble sleeping when he has a cold. He rarely wakes up gasping for air throughout the night. He rarely sweats excessively at night. He rarely has heart palpitations or irregular heartbeats during the night. He occasionally falls asleep during the day. He denies cataplexy. He denies having trouble at school or work due to sleepiness. He rarely feels unable to move while waking up or falling asleep. He rarely experiences vivid dreamlike scenes upon awakening or falling asleep. He denies feeling afraid of going to sleep. He rarely has nightmares. He rarely remembers his dreams. He frequently has thoughts racing through his mind. He occasionally feels sad or depressed. He frequently has anxiety. He occasionally has muscular tension. He occasionally notices parts of his body jerk. He denies kicking during the night. He frequently has crawling and aching feelings in his legs and frequently has leg pain during the night. He occasionally grinds his teeth during sleep and occasionally awakens with morning jaw pain. He is constantly bothered by pain during the day and occasionally awakened by pain during the night. He frequently wakes up feeling stiff in the morning. He frequently wakes up with sore or achy muscles. He frequently wakes up with pain in the neck, spine or other joints. The does to bed at 9:00 p.m. on both weekdays and weekends. It takes him 5-10 minutes to fall asleep. He wakes up 2-4 times throughout the night to urinate and is able to fall back asleep within 20 minutes. He wakes up between 6-7 a.m. on both weekdays and weekends. He typically gets 7-8 hours of sleep per night. He will stay in bed for 10-15 minutes after waking up in the morning. He currently lives alone. He denies consuming any caffeinated beverages within 2 hours of bedtime. He denies engaging in physical exercise before bedtime. He will watch television before falling asleep. He denies taking naps in the afternoon or the evening. He consumes 2-3 the caffeinated beverages per day. He quit smoking cigarettes in 1978. He will have 1 it beer per day. He denies recreational drug use. [facility] Past Medical History Medical History Atrial fibrillation Chronic acquired lymphedema Chronic anemia Chronic congestive heart failure Echocardiogram in May 2021 was technically difficult and showed normal LV systolic function with an EF of 60 to 65%, severely enlarged RV chamber with moderate to severely reduced RV systolic function, severe biatrial enlargement, and moderate pulmonary hypertension. Chronic kidney disease Chronic low back pain Chronic venous insufficiency CKD (chronic kidney disease) stage 3, GFR 30-59 ml/min Required temporary dialy
[2023-02-05 21:52] VITALS: BMI 40.8
== END 2023-01-19 08:22 | disposition home or self-care (01) ==
LOC: ANHCSM 09:27
PROVIDERS: PCP Family Medicine; Visit Provider Internal Medicine Critical Care Medicine
DX: G47.33 Obstructive sleep apnea (adult) (pediatric) (principal)
CPT/HCPCS: 95811

== ENCOUNTER 2023-03-15 11:35 | Outpatient (CLI) | payer MEDICARE, OTHER, SELFPAY ==
[2023-03-15 18:42] LABS: Albumin Level 4.4 g/dL (3.5-5.1); Anion Gap 10 mmol/L (8-16); Blood Urea Nitrogen 39 mg/dL (9-20); Carbon Dioxide 28 mmol/L (22-30); Chloride 97 mmol/L (98-107); Estimated Glomerular Filt Rate 24; Glucose 127 mg/dL (65-110); Phosphorus 3.1 mg/dL (2.5-4.5); Potassium 4.5 mmol/L (3.4-5.0); Sodium 135 mmol/L (137-145)
[2023-03-15 18:44] LABS: Total Protein Urine Random 13 mg/dL; Ur Ttl Prot Creatinine Ratio 0.25 mg/mg (0-0.20)
[2023-03-15 18:51] LABS: Parathyroid Intact 184.1 pg/mL (7.5-53.5)
== END 2023-03-15 11:36 | disposition home or self-care (01) ==
LOC: ANHGOSHLAB 11:36
PROVIDERS: PCP Family Medicine; Visit Provider Internal Medicine Nephrology
DX: I12.9 Hypertensive chronic kidney disease with stage 1 through stage 4 chronic kidney disease, or unspecified chronic kidney disease (principal); N18.32 Chronic kidney disease, stage 3b; N25.81 Secondary hyperparathyroidism of renal origin
CPT/HCPCS: 36415; 80069; 82570; 83970; 84156

== ENCOUNTER 2023-03-18 11:52 | Inpatient (IN) | payer MEDICARE, OTHER, SELFPAY ==
[2023-03-18] VITALS (17 sets, daily range): BP systolic 122–186; BP diastolic 74–110; PULSE 73–110; RESP 11–22; TEMP 36.3; O2SAT 97–100
--- NOTE | ~2023-03-18 | XR_ITS ---
XR chest 1V portable 03/18/2023 18:51 Indication: Weakness. Body aches. Procedure: AP portable chest Comparison: Comparison to multiple prior studies sequentially, with oldest reviewed study dated 06/12. Findings: Cardiomegaly. Mild interstitial edema. No significant effusion. No pneumothorax. No acute o sseous abnormality. Impression: 1: Cardiomegaly with mild interstitial edema. Reviewed, dictated and finalized at location A. CAL GOODS DRILLING MACHINE OPERATOR Impression: 1: Cardiomegaly with mild interstitial edema.
--- NOTE | ~2023-03-18 | MR_ITS ---
EXAMINATION: MR cervical spine wo con DATE: 03/18/2023 17:23 INDICATION: Neck pain and weakness TECHNIQUE: Magnetic resonance imaging (MRI) of the cervical spine was performed without intravenous c ontrast. Sequences included sagittal T2-weighted FSE, sagittal T2-weighted FS FSE, sagittal T1-weight ed FSE, axial MERGE and axial T2-weighted FSE. COMPARISON: Cervical spine CT dated 03/18/2023 FINDINGS: Evaluation mildly limited by patient body habitus and mild motion artifact. 10 degrees cervical dextr ocurvature. Straightening of the normal cervical lordosis. No spondylolisthesis or facet subluxation. Vertebral body heights are normal. Bone marrow signal intensity is normal. Moderate to severe disc height loss at C5-C6 and C6-C7. Mild disc height loss at C4-C5. Cord signal intensity is normal. The following disc levels are specifically discussed: C2-C3: The disc does not extend beyond the endplate margin. There is no uncovertebral joint osteoarth ritis. There is severe left and moderate right facet joint osteoarthritis. There is mild left neural foraminal stenosis. There is no central canal stenosis. C3-C4: Disc is mildly bulging. There is moderate bilateral uncovertebral joint osteoarthritis. There is moderate to severe left and severe right facet joint osteoarthritis. There is moderate left and mo derate to severe right neural foraminal stenosis. There is mild to moderate central canal stenosis wh ich measures 8 mm AP in the mid sagittal plane. C4-C5: Disc is bulging. There is moderate right and severe left uncovertebral joint osteoarthritis. T here is mild right and moderate left facet joint osteoarthritis. There is moderate right and moderate left neural foraminal stenosis. There is mild to moderate central canal stenosis measuring 8 mm AP i n the mid sagittal plane. C5-C6: Disc is mildly bulging. There is moderate right and severe left uncovertebral joint osteoarthr itis. There is mild bilateral facet joint osteoarthritis. There is mild to moderate right and moderat e left neural foraminal stenosis. There is mild central canal stenosis measuring 9 mm AP in the mid s agittal plane. C6-C7: Disc is bulging. There is mild to moderate right and moderate left uncovertebral joint osteoar thritis. There is mild bilateral facet joint osteoarthritis. There is mild right and moderate left ne ural foraminal stenosis. There is mild central canal stenosis measuring 9 mm AP in the mid sagittal p bipin. C7-T1: Small right paracentral disc protrusion. There is mild bilateral uncovertebral joint osteoarth ritis. There is moderate right and severe left facet joint osteoarthritis. There is mild left neural foraminal stenosis. There is mild central canal stenosis. IMPRESSION: 1. Moderate to severe cervical spondylosis. Reviewed, dictated and finalized at location A. OM SANDER
--- NOTE | ~2023-03-18 | XR_ITS ---
EXAM: XR abdomen obstructive series DATE: 03/26/2023 16:16 HISTORY: constipation . COMPARISON: None available. FINDINGS: Clear lung bases. Cholecystectomy clips. Normal bowel gas pattern. No organomegaly. No abn ormal abdominal calcification. Lumbar degenerative disc disease. IMPRESSION: No radiographic evidence of obstruction or ileus. Reviewed, dictated and finalized at location K. SPHERIC TECHNICIAN
--- NOTE | ~2023-03-18 | XR_ITS ---
XR foot RT 2V 03/18/2023 18:52 Indication: Multiple wounds of the foot. CAD analysis. Procedure: 2 views right foot Comparison: 07/20/2020 Findings: There is polyarticular osteoarthritis. Osteopenia. Lisfranc joint intact. Large amount of s oft tissue swelling. No erosive changes. There are degenerative calcaneal enthesophytes. Impression: 1: No acute bone or joint abnormality. No evidence for osteomyelitis. Consider correlation with MRI w ithout and with contrast if there is concern for osteomyelitis. Reviewed, dictated and finalized at location A. CISE PHYSIOLOGIST CERTIFIED Impression: 1: No acute bone or joint abnormality. No evidence for osteomyelitis. Consider correlation with MRI without and with contrast if there is concern for osteomye litis.
--- NOTE | ~2023-03-18 | CT_ITS ---
EXAMINATION: CT brain wo con INDICATION: Weakness COMPARISON: 07/28/2021 TECHNIQUE: Standard unenhanced head CT. The dose-length product (DLP) was 681.00 mGy-cm. The mA was a djusted according to patient size. Iterative reconstruction technique was employed. FINDINGS: No acute intraparenchymal hemorrhage. No evidence of mass lesion. No evidence of acute infa rction. There is mild periventricular and subcortical hypodensity probably related to small vessel is chemic disease. There is mild prominence of the sulci and ventricles related to cerebral atrophy. Int racranial calcified cerebral atherosclerosis is noted. No extra-axial collections. No mass effect or midline shift. Changes of scleral banding are again noted on the right. The visualized sinuses and ma stoid air cells are well aerated. IMPRESSION: 1. No acute intracranial abnormality. 2. Age related findings. Reviewed, dictated and finalized at location B. K CONTROL CLERK
--- NOTE | ~2023-03-18 | CT_ITS ---
EXAMINATION: CT cervical spine wo con DATE: 03/18/2023 14:57 INDICATION: Neck pain TECHNIQUE: Computed tomography (CT) of the cervical spine was performed without intravenous contrast. The dose-length product (DLP) was 711.36 mGy-cm. Automated exposure control and iterative reconstruc tion technique were employed. COMPARISON: 07/28/2021 FINDINGS: Bone alignment is normal. There is no fracture. There is severe loss of intervertebral disc space height at C5-6, C6-7, and C7-T1. The vertebral body heights are maintained. The odontoid proce ss is intact. There is moderate multilevel facet and uncovertebral joint osteoarthritis. IMPRESSION: 1. Severe cervical spondylosis without acute findings or significant interval change. Reviewed, dictated and finalized at location B. NG ROW BOSS IMPRESSION: 1. Severe cervical spondylosis without acute findings or significant interval ritu cline
--- NOTE | ~2023-03-18 | MR_ITS ---
EXAMINATION: MR lumbar spine wo con DATE: 03/18/2023 17:32 INDICATION: Weakness TECHNIQUE: Magnetic resonance imaging (MRI) of the lumbar spine was performed without intravenous con trast. Sequences included sagittal T2-weighted FSE, sagittal T2-weighted FS FSE, sagittal T1-weighted FSE, and axial T2-weighted FSE. COMPARISON: Lumbar spine MR dated 09/03/2014 FINDINGS: Alignment is normal. Vertebral body heights are normal. Normal marrow signal. Mild disc height loss from T12-L1 through L5-S1. Again seen is mild increased signal in the L5-S1 disc space without surrou nding marrow or soft tissue edema to suggest discitis and this can be seen with vacuum phenomena. The conus medullaris terminates at T12-L1. There is normal signal in the caudal spinal cord. There is ep idural lipomatosis was introduced to central canal stenosis throughout the lumbar spine as will be de tailed below. Paravertebral soft tissues are unremarkable. The following disc levels are specifically discussed: T12-L1: Disc is bulging. There is moderate to severe bilateral facet joint osteoarthritis. There is m ild bilateral neural foraminal stenosis. There is moderate central canal stenosis with small amount o f CSF signal between the centrally clustered nerve roots. L1-L2: Disc is bulging. There is a prior to severe bilateral facet joint osteoarthritis. There is mod erate left and mild to moderate right neural foraminal stenosis. There is been prior L1 partial gala ectomy with posterior decompression. There is moderate central canal stenosis with minimal CSF signal amongst the centrally clustered nerve roots. L2-L3: Disc is bulging, eccentric to the left. There is moderate bilateral facet joint osteoarthritis . There is moderate bilateral neural foraminal stenosis. There is unchanged severe central canal sten osis. L3-L4: Disc is bulging. There is moderate bilateral facet joint osteoarthritis. There is moderate rig ht and severe left neural foraminal stenosis. There is mild to moderate central canal stenosis. L4-L5: Disc is mildly bulging. There is severe bilateral facet joint osteoarthritis with likely solid fusion on the left. There is moderate bilateral neural foraminal stenosis. There is moderate central canal stenosis. L5-S1: The disc does not extend beyond the endplate margins. Hypertrophic endplate osteophytes at the bilateral foraminal zones. There is severe bilateral facet joint osteoarthritis with likely solid fu madhuri on the left. There is mild right and moderate left neural foraminal stenosis. There is moderate central canal stenosis resulting primarily from increased epidural fat. IMPRESSION: 1. Minimal progression since 2014 in severe lumbar spondylosis with superimposed epidural lipomatosis most notable for unchanged severe central canal stenosis at L2-L3. Reviewed, dictated and finalized at location A. MACHINE OPERATOR IMPRESSION: 1. Minimal progression since 2014 in severe lumbar spondylosis with superimpose d epidural lipomatosis most notable for unchanged severe central canal stenosis at L2-L3.
--- NOTE | 2023-03-18 13:27 | ECG_ITS ---
Measurements Intervals [place] Rate: 80 P: DE: 0 QRS: 144 QRSD: 170 T: 51 QT: 463 QTc: 537 Interpretive Statements ATRIAL FIBRILLATION BASELINE ARTIFACT RIGHT BUNDLE BRANCH BLOCK [120+ ms QRS DURATION, UPRIGHT V1, 40+ ms S IN I/aVL/V4/V5/V6] LEFT POSTERIOR FASCICULAR BLOCK [QRS AXIS > 109, INFERIOR Q] ABNORMAL ECG COMPARED TO ECG 04/11/2022 11:01:11 LEFT POSTERIOR FASCICULAR BLOCK NOW PRESENT Electronically Signed On 03-18-2023 17:23:37 MULTI CRAFT MAINTENANCE TECHNICIAN by Chon Allen M.D.
--- NOTE | 2023-03-18 13:49 | ED.NECK ---
HPI - Neck Pain/Injury General Chief Complaint: Neck Pain/Injury Stated Complaint: neck pain Time Seen by Provider: 03/18/23 13:09 History of Present Illness HPI Narrative: She present to the emergency department from home. He lives alone. He he has chronic generalized weakness due to low back surgery. He also has right leg weakness due to a fracture with repair. However he gets around on a wheelchair. he is normally able to transfer alone. He was coughing 2 days ago the next morning he woke up with severe neck pain. Comes in waves and radiates across both shoulders. Pain has been gradually getting worse. Today severe. Also this morning woke up with significantly worse generalized weakness. He cannot stand at all. He is able to move her both arms but states they are weaker than normal. Parakeet Raiser 5/5 bilaterally. He can also move both legs but overall is weak. Denies all other symptoms. Related Data Home Medications Medication Instructions Recorded Confirmed loratadine 10 mg tablet (Claritin) 10 mg PO DAILY 07/12/20 11/28/22 acetaminophen 325 mg capsule 1,000 mg PO Q6H PRN Pain 04/20/21 11/28/22 (Tylenol) polyethylene glycol 3350 17 17 g PO PRN PRN Constipation 06/02/21 11/28/22 gram/dose oral powder (Miralax) acetazolamide 250 mg tablet 500 mg PO DAILY 11/19/22 11/28/22 fluticasone propionate 50 1 spray intranasal DAILY PRN 11/19/22 11/28/22 mcg/actuation nasal spray,suspension (Flonase Allergy Relief) minoxidil 10 mg tablet 10 mg PO DAILY 11/19/22 11/28/22 spironolactone 25 mg tablet 25 mg PO DAILY 11/19/22 11/28/22 aspirin 81 mg chewable tablet 81 mg PO DAILY 11/28/22 11/28/22 Allergies Allergy/AdvReac Type Severity Reaction Status Date / Time Sulfa (Sulfonamide Allergy Mild Rash Verified 03/18/23 11:58 Antibiotics) Penicillins Allergy Unknown SWELLING Verified 03/18/23 11:58 codeine AdvReac Mild N/V Verified 03/18/23 11:58 hydrocodone AdvReac Mild N/V Verified 03/18/23 11:58 tramadol AdvReac Mild Nausea Verified 03/18/23 11:58 Review of Systems Review of Systems: Negative except as documented in the [facility] Past Medical History Medical History Atrial fibrillation Chronic acquired lymphedema Chronic anemia Chronic congestive heart failure Echocardiogram in May 2021 was technically difficult and showed normal LV systolic function with an EF of 60 to 65%, severely enlarged RV chamber with moderate to severely reduced RV systolic function, severe biatrial enlargement, and moderate pulmonary hypertension. Chronic kidney disease Chronic low back pain Chronic venous insufficiency CKD (chronic kidney disease) stage 3, GFR 30-59 ml/min Required temporary dialysis and spring 2021. Dyslipidemia Environmental allergies Essential (primary) hypertension GERD without esophagitis Hypothyroidism Lymphedema of both lower extremities Obstructive sleep apnea Ocular rosacea Peripheral polyneuropathy Rosacea Surgical History Surgical History H/O eye surgery (~2005) [id number] BJ History of carpal tunnel release History of cholecystectomy (2008) History of discectomy (2012) History of foot surgery Left Foot History of rotator cuff surgery Bilateral. History of thoracic surgery Pericardial effusion s/p pericardial window thought secondary to minoxidil, in 2010 at [facility]. Family History Family History Father Cardiovascular disease Grandparent Cancer Mother COPD (chronic obstructive pulmonary disease) Father Family history of cardiovascular disease Grandparent Family history of malignant neoplasm Social History Social History Social History: Surrogate medical decision maker: Shyla Hurst, daughter. Code status: Full code. Smoking
[2023-03-18] MEDS: LIDOCAINE 5% PATCH 1 PATCH TRANSDERM (13:53)
[2023-03-18] MEDS: MORPHINE SULFATE (*CRX) 4 MG/ML INJ IV PUSH ×2 (13:54→19:52)
[2023-03-18 14:11] LABS: Basophils Absolute Auto 0.1 K/mm3 (0.0-0.1); Basophils Percent Auto 0.8 % (0.2-1.2); Eosinophils Absolute Auto 0.4 K/mm3 (0-0.3); Hematocrit 38.7 % (42.0-52.0); Hemoglobin 12.5 g/dL (14.0-18.0); Immature Granulocyte Absolute 0.06 K/mm3 (0.00-0.031); Immature Granulocyte Percent A 0.6 % (0-0.5); Lymphocytes Absolute Auto 0.47 K/mm3 (0.9-3.2); Lymphocytes Percent Auto 5.1 % (18.3-44.2); Mean Corpuscular HGB Conc 32.3 g/dl (32-36); Mean Corpuscular Hemoglobin 31.9 pg (26-34); Mean Corpuscular Volume 98.7 fl (80-100); Mean Platelet Volume 9.9 fl (7.4-10.4); Monocytes Absolute Auto 0.8 K/mm3 (0.1-0.6); Monocytes Percent Auto 8.6 % (2.6-8.5); Neutrophils Absolute Auto 7.5 K/mm3 (1.3-6.7); Neutrophils Percent Auto 80.9 % (45.5-73.1); Platelet Count Result 267 k/mm3 (150-375); Red Blood Count 3.92 M/mm3 (4.6-6.20); Red Cell Distribution Width 14.2 % (11.5-14.5); White Blood Count 9.3 K/mm3 (4.5-10.0)
[2023-03-18 14:20] LABS: Alanine Aminotransferase 11 U/L (6-50); Alkaline Phosphatase 48 U/L (38-126); Anion Gap 9 mmol/L (8-16); Aspartate Amino Transferase 17 U/L (17-59); Bilirubin,Total 0.8 mg/dL (0.2-1.3); Blood Urea Nitrogen 33 mg/dL (9-20); Calcium 8.5 mg/dL (8.4-10.2); Carbon Dioxide 25 mmol/L (22-30); Chloride 101 mmol/L (98-107); Estimated CRCL calculation 39 ml/min; Estimated Glomerular Filt Rate 28; Glucose 114 mg/dL (65-110); Potassium 4.1 mmol/L (3.4-5.0); Sodium 135 mmol/L (137-145)
[2023-03-18 14:22] LABS: INR 1.4; Prothrombin Time 17.5 Seconds (11.1-14.7)
[2023-03-18 14:32] LABS: Troponin I 0.021 ng/mL (0.000-0.034)
[2023-03-18 14:56] LABS: Appearance Urine Clear (Clear); Bilirubin Urine Negative (Negative); Blood Urine Negative (Negative); Color Urine Yellow (Yellow); Glucose Urine UA Negative (Negative); Ketones Urine Negative (Negative); Leukocyte Esterase Ur Negative LEU/UL (Negative); Nitrate Urine Negative (Negative); Protein Urine Negative (Negative); Specific Grav Ur 1.009 (1.001-1.035); Urobilinogen Urine 0.2 mg/dL (<2.0); pH Urine 7.5 (5.0-9.0)
[2023-03-18 15:15] LABS: Add Urine Microscopic? NO
--- NOTE | 2023-03-18 16:56 | PC.NURSE ---
Pt take to MRI
--- NOTE | 2023-03-18 17:43 | ECG_ITS ---
Measurements Intervals [place] Rate: 94 P: 52 UT: 301 QRS: -85 QRSD: 160 T: 48 QT: 419 QTc: 526 Interpretive Statements ATRIAL FIBRILLATION MARKED LEFT AXIS DEVIATION [QRS AXIS < -30] RIGHT BUNDLE BRANCH BLOCK [120+ ms QRS DURATION, UPRIGHT V1, 40+ ms S IN I/aVL/V4/V5/V6] COMPARED TO ECG 03/18/2023 13:52:04 NO SIGNIFICANT CHANGES Electronically Signed On 03-19-2023 13:25:19 FURNITURE UPHOLSTERER APPRENTICE by Nicky Allen M.D.
[2023-03-18 18:15] LABS: Troponin I 0.026 ng/mL (0.000-0.034)
--- NOTE | 2023-03-18 19:50 | PM.IMHP ---
H&P: HPI History of Present Illness Date/Time: 03/18/23 19:50 Chief Complaint: Generalized weakness Narrative: This is a 73-year-old male with past medical history significant for morbid obesity, bilateral chronic lymphedema, obstructive sleep apnea on CPAP at nighttime patient uses a motorized scooter to get around, is usually able to transfer is able to stand however in the last few days patient has been very weak and unable to stand from his scooter. It was noted in the emergency room the patient had a right lower extremity wound with redness and tenderness according to patient has been getting worse for the last week or so. Patient is not a very good historian and can not really provide much detail that is meaningful and contributory to history taking. XR foot RT 2V 03/18/2023 18:52 Indication: Multiple wounds of the foot. CAD analysis. Procedure: 2 views right foot Comparison: 07/20/2020 Findings: There is polyarticular osteoarthritis. Osteopenia. Lisfranc joint intact. Large amount of soft tissue swelling. No erosive changes. There are degenerative calcaneal enthesophytes. Impression: 1: No acute bone or joint abnormality. No evidence for osteomyelitis. Consider correlation with MRI without and with contrast if there is concern for osteomyelitis. XR chest 1V portable 03/18/2023 18:51 Indication: Weakness. Body aches. Procedure: AP portable chest Comparison: Comparison to multiple prior studies sequentially, with oldest reviewed study dated? 06/12/2021. Findings: Cardiomegaly. Mild interstitial edema. No significant effusion. No pneumothorax. No acute osseous abnormality. Impression: 1: Cardiomegaly with mild interstitial edema. EXAMINATION: CT brain wo con ? INDICATION: Weakness ? COMPARISON: 07/28/2021 TECHNIQUE: Standard unenhanced head CT. The dose-length product (DLP) was 681.00 mGy-cm. The mA was adjusted according to patient size. Iterative reconstruction technique was employed. ? FINDINGS: No acute intraparenchymal hemorrhage. No evidence of mass lesion. No evidence of acute infarction. There is mild periventricular and subcortical hypodensity probably related to small vessel ischemic disease. There is mild prominence of the sulci and ventricles related to cerebral atrophy. Intracranial calcified cerebral atherosclerosis is noted. No extra-axial collections. No mass effect or midline shift. Changes of scleral banding are again noted on the right. The visualized sinuses and mastoid air cells are well aerated. IMPRESSION: 1. No acute intracranial abnormality. 2. Age related findings. EXAMINATION: MR lumbar spine wo con DATE: 03/18/2023 17:32 INDICATION: Weakness TECHNIQUE: Magnetic resonance imaging (MRI) of the lumbar spine was performed without intravenous contrast. Sequences included sagittal T2-weighted FSE, sagittal T2-weighted FS FSE, sagittal T1-weighted FSE, and axial T2-weighted FSE. COMPARISON: Lumbar spine MR dated 09/03/2014 FINDINGS: Alignment is normal. Vertebral body heights are normal.? Normal marrow signal. Mild disc height loss from T12-L1 through L5-S1. Again seen is mild increased signal in the L5-S1 disc space without surrounding marrow or soft tissue edema to suggest discitis and this can be seen with vacuum phenomena. The conus medullaris terminates at T12-L1. There is normal signal in the caudal spinal cord. There is epidural lipomatosis was introduced to central canal stenosis throughout the lumbar spine as will be detailed below. Paravertebral soft tissues are unremarkable. The following disc levels are specifically discussed: ? T12-L1: Disc is bulging. There is moderate to severe bilateral facet joint osteoarthritis. There is mild bilateral neural foraminal stenosis. There is moderate central canal stenosis with small amount of CSF signal between the centrally clustered nerve roots. L1-L2: Disc is bulging. There is a prior to severe bilateral facet joint osteoarthritis. Th
[2023-03-18] MEDS: cefTRIAXone 2 GM/NS 100 ML 2 GM/100 ML BAG IVPB (20:17)
--- NOTE | 2023-03-18 22:14 | PC.NURSE ---
Pt moved into hospital bed for comfort.
[2023-03-18 23:52] LABS: Influenza A QL RT-PCR Negative (Negative); Influenza B QL RT-PCR Negative (Negative); RSV RNA, RT-PCR Negative (Negative); SARS-CoV-2 RNA PCR Negative (Negative)
[2023-03-19] VITALS (12 sets, daily range): BP systolic 119–132; BP diastolic 61–66; PULSE 77–113; RESP 12–21; TEMP 36.1–36.8; O2SAT 97–100
--- NOTE | 2023-03-19 04:47 | ADMGEN ---
This patient, Irwin Cyr Jr., was admitted to Medical Room 343-01. Patient/family oriented to hospital policies and general routines including ID bracelet, bed and alarms, visiting hours, pain management, procedures, bathroom and other care routines, personal items, smoking policy, room service/diet, and visiting hours. Information on how to activate the Rapid Response Team has been discussed. Patient/Family are encouraged to report perceived risks to care and to ask questions if they do not understand what they are told or what they should do.
--- NOTE | 2023-03-19 09:24 | PM.IMPN ---
Progress Note: A&P Assessment and Plan (1) Cellulitis: Qualifiers: Laterality: right Site of cellulitis: extremity Site of cellulitis of extremity: lower extremity Qualified Code(s): L03.115 - Cellulitis of right lower limb Code(s): L03.90 - Cellulitis, unspecified Status: Acute Assessment and Plan: Rocephin initiated 03/18 Appreciate Wound consult Check CRP, procalcitonin X-ray negative for osteomyelitis, consider MRI if symptoms worsen, no history of diabetes, but chronic lymphedema complicates infection 03/19: do not suspect infection at this time, observe off abx (2) Acute neck pain: Code(s): M54.2 - Cervicalgia Status: Acute Assessment and Plan: MRI shows severe spondylosis, NS consult ordered and pending Pain control PT/OT (3) Weakness: Code(s): R53.1 - Weakness Status: Acute Assessment and Plan: Multifactorial, likely 2/2 neck pain radiating into UE, check TSH, iron studies, B12/folate (4) Stage 3b chronic kidney disease: Code(s): N18.32 - Chronic kidney disease, stage 3b Status: Acute Assessment and Plan: Monitor, consider Nephrology consult if this worsens as he has a history of acute decompensation concerning for need for dialysis in the past (5) Obstructive sleep apnea: Code(s): G47.33 - Obstructive sleep apnea (adult) (pediatric) Status: Chronic Assessment and Plan: CPAP with sleep (6) Morbid obesity with BMI of 50.0-59.9, adult: Code(s): E66.01 - Morbid (severe) obesity due to excess calories; Z68.43 - Body mass index [BMI] 50.0-59.9, adult Status: Acute (7) Chronic low back pain: Qualifiers: Back pain laterality: unspecified Sciatica presence: unspecified whether sciatica present Qualified Code(s): M54.5 - Low back pain; G89.29 - Other chronic pain Code(s): M54.5 - Low back pain; G89.29 - Other chronic pain Status: Acute Plan DVT prophylaxis with Eliquis GI prophylaxis not indicated Code status full code Subjective Date/time seen: 03/19/23 09:24 Interval history: 73-year-old male with history of severe refractory anasarca on multiple diuretics, AFib, heart failure, chronic lymphedema among other comorbidities is presenting with severe neck pain without trauma causing inability to get around because he his upper body in a wheelchair for mobility. No overnight events noted. No chest pain or shortness of breath. No nausea, vomiting or diarrhea. No fevers or chills. P/w significant neck pain, no known trauma. Review of Systems Review of Systems: 12 point review of systems was assessed and was negative except as noted in the HPI Exam Narrative: General: No acute distress, alert and oriented per baseline HEENT: Atraumatic, normocephalic, mucous membranes moist CV: Regular rate and rhythm, S1, S2 Lungs: Clear to auscultation bilaterally, no rales or crackles noted, no wheezes, good air entry Abdomen: Soft, nontender, nondistended Extremities: Chronic venous stasis dermatitis with woody,k brawny edema noted B/L minimal erythema, no warmth or TTP Skin: No rashes noted, no lesions or wounds seen Psych: Euthymic, normal affect Objective Data Vital Signs Vital Signs: Vital Signs - 24 hr 03/18/23 11:55 03/18/23 14:01 03/18/23 14:00 Temperature 97.4 F L Pulse Rate 108 H 91 99 Respiratory Rate 18 19 18 Blood Pressure 134/83 122/74 Pulse Oximetry 99 100 100 Oxygen Delivery Room Air 03/18/23 14:01 03/18/23 14:27 03/18/23 14:30 Temperature Pulse Rate 91 87 Respiratory Rate 22 H 13 15 Blood Pressure 122/74 Pulse Oximetry 99 97 100 Oxygen Delivery 03/18/23 14:31 03/18/23 15:01 03/18/23 15:04 Temperature Pulse Rate 78 77 73 Respiratory Rate 15 19 18 Blood Pressure 142/76 H 139/76 Pulse Oximetry 99 98 Oxygen Delivery 03/18/23 15:19 03/18/23 15:36 03/18/23 15:45
[2023-03-19] MEDS: MORPHINE SULFATE (*CRX) 4 MG/ML INJ IV PUSH (09:31)
[2023-03-19 09:42] LABS: Basophils Absolute Auto 0.1 K/mm3 (0.0-0.1); Basophils Percent Auto 0.8 % (0.2-1.2); Eosinophils Absolute Auto 0.3 K/mm3 (0-0.3); Eosinophils Percent Auto 3.5 % (0-4.4); Hemoglobin 12.8 g/dL (14.0-18.0); Immature Granulocyte Absolute 0.04 K/mm3 (0.00-0.031); Immature Granulocyte Percent A 0.5 % (0-0.5); Lymphocytes Absolute Auto 0.34 K/mm3 (0.9-3.2); Lymphocytes Percent Auto 4.4 % (18.3-44.2); Mean Corpuscular Hemoglobin 31.9 pg (26-34); Mean Corpuscular Volume 99.8 fl (80-100); Mean Platelet Volume 9.3 fl (7.4-10.4); Monocytes Absolute Auto 0.5 K/mm3 (0.1-0.6); Monocytes Percent Auto 6.9 % (2.6-8.5); Neutrophils Absolute Auto 6.5 K/mm3 (1.3-6.7); Neutrophils Percent Auto 83.9 % (45.5-73.1); Platelet Count Result 240 k/mm3 (150-375); Red Blood Count 4.01 M/mm3 (4.6-6.20); Red Cell Distribution Width 14.4 % (11.5-14.5); White Blood Count 7.7 K/mm3 (4.5-10.0)
[2023-03-19 09:55] LABS: Alanine Aminotransferase 11 U/L (6-50); Albumin Level 4.3 g/dL (3.5-5.1); Alkaline Phosphatase 49 U/L (38-126); Anion Gap 11 mmol/L (8-16); Aspartate Amino Transferase 18 U/L (17-59); Bilirubin,Total 1.1 mg/dL (0.2-1.3); Blood Urea Nitrogen 32 mg/dL (9-20); Calcium 8.9 mg/dL (8.4-10.2); Carbon Dioxide 25 mmol/L (22-30); Chloride 103 mmol/L (98-107); Estimated CRCL calculation 44 ml/min; Estimated Glomerular Filt Rate 33; Glucose 130 mg/dL (65-110); Potassium 3.8 mmol/L (3.4-5.0); Sodium 139 mmol/L (137-145)
[2023-03-19 09:58] LABS: CRP 3.3 mg/dL (<1.0)
[2023-03-19 10:09] LABS: Iron 66 ug/dL (49-181)
[2023-03-19 10:18] LABS: Percent Iron Saturation 19 % (20-50)
[2023-03-19 10:22] LABS: Procalcitonin 0.1 ng/mL
[2023-03-19 11:00] LABS: Folic Acid 9.4 ng/mL (2.76->20)
[2023-03-19] MEDS: LORATADINE 10 MG TABLET PO (11:18)
[2023-03-19] MEDS: polyethylene glycoL 3350 17 GM POWD.PACK PO (11:18)
[2023-03-19] MEDS: APIXABAN 5 MG TABLET PO ×2 (11:18→20:55)
[2023-03-19] MEDS: BUMETANIDE 1 MG TABLET 3 MG PO ×3 (11:18→17:20)
[2023-03-19] MEDS: METOPROLOL TARTRATE 50 MG TAB PO ×2 (11:18→20:54)
[2023-03-19] MEDS: SPIRONOLACTONE 25 MG TABLET PO (11:19)
[2023-03-19] MEDS: POTASSIUM CHLORIDE 20 MEQ ER TABLET 40 MEQ PO ×3 (11:19→17:21)
[2023-03-19] MEDS: TAMSULOSIN HCL 0.4 MG CAPSULE PO (11:19)
[2023-03-19] MEDS: GABAPENTIN 300 MG CAPSULE PO ×3 (11:19→17:21)
[2023-03-19] MEDS: LEVOTHYROXINE SODIUM 100 MCG TABLET 200 MCG PO (11:19)
[2023-03-19] MEDS: acetaZOLAMIDE TAB 250 MG TABLET PO (11:19)
[2023-03-19] MEDS: minoxidiL 10 MG TABLET PO (13:11)
[2023-03-19] MEDS: MICONAZOLE NITRATE 2% CREAM 30 GM TUBE 1 APPLIC TOPICAL ×2 (14:31→20:55)
--- NOTE | 2023-03-19 14:32 | PCCCNOTE ---
On 03/19/23, the student, [Kimberley Coon], provided care and completed [facility] documentation on this patient. I have reviewed the student's documentation and agree with the findings.
[2023-03-19] MEDS: ACETAMINOPHEN 500 MG TABLET 1000 MG PO ×2 (14:37→23:23)
[2023-03-20] VITALS (12 sets, daily range): BP systolic 122–129; BP diastolic 62–67; PULSE 101–112; RESP 18–19; TEMP 36.5–36.8; O2SAT 96–98
[2023-03-20 05:08] LABS: Basophils Absolute Auto 0.1 K/mm3 (0.0-0.1); Basophils Percent Auto 0.8 % (0.2-1.2); Eosinophils Absolute Auto 0.3 K/mm3 (0-0.3); Eosinophils Percent Auto 3.7 % (0-4.4); Hematocrit 37.9 % (42.0-52.0); Hemoglobin 12.1 g/dL (14.0-18.0); Immature Granulocyte Absolute 0.08 K/mm3 (0.00-0.031); Immature Granulocyte Percent A 0.9 % (0-0.5); Lymphocytes Absolute Auto 0.47 K/mm3 (0.9-3.2); Lymphocytes Percent Auto 5.3 % (18.3-44.2); Mean Corpuscular HGB Conc 31.9 g/dl (32-36); Mean Corpuscular Hemoglobin 31.8 pg (26-34); Mean Corpuscular Volume 99.7 fl (80-100); Mean Platelet Volume 9.5 fl (7.4-10.4); Monocytes Absolute Auto 0.9 K/mm3 (0.1-0.6); Monocytes Percent Auto 10.3 % (2.6-8.5); Platelet Count Result 237 k/mm3 (150-375); Red Cell Distribution Width 14.2 % (11.5-14.5); White Blood Count 8.9 K/mm3 (4.5-10.0)
[2023-03-20 05:17] LABS: Alanine Aminotransferase 10 U/L (6-50); Alkaline Phosphatase 46 U/L (38-126); Anion Gap 9 mmol/L (8-16); Aspartate Amino Transferase 19 U/L (17-59); Blood Urea Nitrogen 31 mg/dL (9-20); Calcium 8.4 mg/dL (8.4-10.2); Carbon Dioxide 24 mmol/L (22-30); Chloride 106 mmol/L (98-107); Estimated CRCL calculation 42 ml/min; Estimated Glomerular Filt Rate 31; Glucose 126 mg/dL (65-110); Potassium 3.9 mmol/L (3.4-5.0); Sodium 139 mmol/L (137-145)
--- NOTE | 2023-03-20 08:25 | PCPTNOTE ---
Attempted to see patient for PT, however patient refused due to neck pain 11/08. RN aware.
[2023-03-20] MEDS: MORPHINE SULFATE (*CRX) 4 MG/ML INJ IV PUSH (08:46)
[2023-03-20] MEDS: GABAPENTIN 300 MG CAPSULE PO ×3 (08:47→17:28)
[2023-03-20] MEDS: acetaZOLAMIDE TAB 250 MG TABLET PO (08:47)
[2023-03-20] MEDS: LORATADINE 10 MG TABLET PO (08:47)
[2023-03-20] MEDS: APIXABAN 5 MG TABLET PO ×2 (08:47→21:46)
[2023-03-20] MEDS: TAMSULOSIN HCL 0.4 MG CAPSULE PO (08:47)
[2023-03-20] MEDS: POTASSIUM CHLORIDE 20 MEQ ER TABLET 40 MEQ PO ×3 (08:47→17:28)
[2023-03-20] MEDS: minoxidiL 10 MG TABLET PO (08:47)
[2023-03-20] MEDS: SPIRONOLACTONE 25 MG TABLET PO (08:47)
[2023-03-20] MEDS: METOPROLOL TARTRATE 50 MG TAB PO ×2 (08:47→21:46)
[2023-03-20] MEDS: BUMETANIDE 1 MG TABLET 3 MG PO ×3 (08:48→17:28)
[2023-03-20] MEDS: LEVOTHYROXINE SODIUM 100 MCG TABLET 200 MCG PO (08:48)
[2023-03-20] MEDS: ACETAMINOPHEN 500 MG TABLET 1000 MG PO ×3 (08:48→18:40)
--- NOTE | 2023-03-20 10:43 | PM.IMPN ---
Progress Note: A&P Assessment and Plan (1) Cellulitis: Qualifiers: Laterality: right Site of cellulitis: extremity Site of cellulitis of extremity: lower extremity Qualified Code(s): L03.115 - Cellulitis of right lower limb Code(s): L03.90 - Cellulitis, unspecified Status: Acute Assessment and Plan: Patient felt to have cellulitis on admission. X-ray shows no acute bony or joint abnormalities. No evidence of osteomyelitis. He was started on Rocephin this has since been stopped. Wound care consult has been obtained. White count is normal. Procalcitonin level is low. CRP is 3.3. Clinically, patient has purulent material draining from this dried eschar with surrounding faint erythema to suggest cellulitis. Resume antibiotics. Check wound culture. Blood cultures are no growth today. Wound care to unroof lesion. (2) Acute neck pain: Code(s): M54.2 - Cervicalgia Status: Acute Assessment and Plan: Patient had been coughing for few days. The morning prior to admission, he awoke with neck pain. The neck pain is become more severe. Patient has chronic neurologic changes but no apparent acute changes. Head CT showed no acute intracranial abnormalities. Cervical spine MRI shows moderate to severe cervical spondylosis. He has mild to moderate central canal stenosis. Cervical spine CT shows severe cervical spondylosis without acute findings. Lumbar spine MRI shows minimal progression since 2015 in the severe lumbar spondylosis with superimposed epidural lipomatosis and unchanged severe central canal stenosis at L2-L3. Range of motion exercises. Add Flexeril. At heating pad. Pain control PT/OT Neurosurgery consult has been ordered (3) Weakness: Code(s): R53.1 - Weakness Status: Acute Assessment and Plan: Multifactorial, likely 2/2 neck pain radiating into UE. Also with chronic weakness related to chronic low back pathology. TSH, B12/folate normal PT/OT (4) Stage 3b chronic kidney disease: Code(s): N18.32 - Chronic kidney disease, stage 3b Status: Acute Assessment and Plan: Cr 2.3 on admission. Cr stable. 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 Assuming care. Chart reviewed. Patient has complaints neck pain with any type of movement. He has chronic numbness in his fingers bilaterally mostly involving the index and thumb. He denies any new symptoms of worsening numbness, tingling or weakness in his hands. He has difficulty walking chronically. He has a power chair. He is able to stand and pivot. He lives at home alone. Exam Narrative: AF 97.8 129/67 112 18 97% ra Gen - NARD Neck - poor GREG neck due to pain. normal shoulder shrug and SCM strength Chest - distant BS CV - IRR; Tele showing AFib with RVR to <110 Abd - Soft, obese Ext - chronic venous stasis skin changes with woody and dark cobbling of the skin. Psych - Nml mood and affect Skin - 5x5cm red brown dry crusted plaque right distal foot with serous and purulent fluid and surrounding pink-red blanchable erythema; slightly warm to touch Objective Data Vital Signs Vital Signs: Vital Signs - 24 hr 03/19/23 11:18 03/19/23 12:05 03/19/23 13:46 Temperature Pulse Rate 92 90 Respiratory Rate Blood Pressure Pulse Oximetry Oxygen Delivery Room Air
[2023-03-20] MEDS: CYCLOBENZAPRINE HCL 5 MG TABLET PO ×3 (11:23→21:46)
[2023-03-20] MEDS: ceFAZolin 1 GM/NS 50 ML 1 GM/50 ML BAG IVPB ×2 (11:29→21:47)
[2023-03-20] MEDS: MICONAZOLE NITRATE 2% CREAM 30 GM TUBE 1 APPLIC TOPICAL ×2 (13:56→21:47)
[2023-03-20] MEDS: WATER FOR IRRIGATION, STERILE 1,000 ML BOTTLE 1000 ML (22:28)
[2023-03-21] VITALS (14 sets, daily range): BP systolic 121–136; BP diastolic 62–81; PULSE 81–112; RESP 16–18; TEMP 36.7–37.7; O2SAT 94–98
[2023-03-21] MEDS: ACETAMINOPHEN 500 MG TABLET 1000 MG PO ×4 (00:43→17:04)
[2023-03-21 05:11] LABS: Basophils Absolute Auto 0.1 K/mm3 (0.0-0.1); Basophils Percent Auto 0.8 % (0.2-1.2); Eosinophils Absolute Auto 0.3 K/mm3 (0-0.3); Eosinophils Percent Auto 3.9 % (0-4.4); Hemoglobin 11.8 g/dL (14.0-18.0); Immature Granulocyte Absolute 0.07 K/mm3 (0.00-0.031); Immature Granulocyte Percent A 0.8 % (0-0.5); Lymphocytes Absolute Auto 0.48 K/mm3 (0.9-3.2); Lymphocytes Percent Auto 5.7 % (18.3-44.2); Mean Corpuscular HGB Conc 31.9 g/dl (32-36); Mean Corpuscular Hemoglobin 32.1 pg (26-34); Mean Corpuscular Volume 100.5 fl (80-100); Mean Platelet Volume 9.5 fl (7.4-10.4); Monocytes Absolute Auto 0.9 K/mm3 (0.1-0.6); Monocytes Percent Auto 10.7 % (2.6-8.5); Neutrophils Absolute Auto 6.6 K/mm3 (1.3-6.7); Neutrophils Percent Auto 78.1 % (45.5-73.1); Platelet Count Result 238 k/mm3 (150-375); Red Blood Count 3.68 M/mm3 (4.6-6.20); White Blood Count 8.5 K/mm3 (4.5-10.0)
[2023-03-21 05:21] LABS: Alanine Aminotransferase 9 U/L (6-50); Albumin Level 3.9 g/dL (3.5-5.1); Alkaline Phosphatase 46 U/L (38-126); Anion Gap 8 mmol/L (8-16); Aspartate Amino Transferase 21 U/L (17-59); Blood Urea Nitrogen 30 mg/dL (9-20); Calcium 8.1 mg/dL (8.4-10.2); Carbon Dioxide 25 mmol/L (22-30); Chloride 106 mmol/L (98-107); Estimated CRCL calculation 39 ml/min; Estimated Glomerular Filt Rate 28; Glucose 126 mg/dL (65-110); Sodium 139 mmol/L (137-145)
[2023-03-21] MEDS: LEVOTHYROXINE SODIUM 100 MCG TABLET 200 MCG PO (05:41)
[2023-03-21] MEDS: CYCLOBENZAPRINE HCL 5 MG TABLET PO ×3 (05:41→20:47)
--- NOTE | 2023-03-21 09:03 | WPDNEUROSGCN ---
Assessment and Plan Assessment and plan (1) Acute neck pain: Code(s): M54.2 - Cervicalgia Status: Acute (2) Cervical spondylosis: Code(s): M47.812 - Spondylosis without myelopathy or radiculopathy, cervical region Status: Acute Plan Mr. Cyr is a 73-year-old male with multiple medical comorbidities including AFib on Eliquis who presented to the hospital 3 days ago with acute onset neck pain after a coughing episode day before. He has been getting some radicular pain into the right shoulder but otherwise appears to be at his neurologic baseline. He does have chronic lower extremity weakness including bilateral footdrop from complications related to a lumbar laminectomy 11 years ago, and he is chronically in wheelchair because of this. On physical exam, he does have significant pain to palpation of the right side of his neck and pain with active range of motion. I do not detect any other deficits in his upper extremities or find any signs of myelopathy. MRI cervical spine is degraded due to motion artifact, but there does appear to be some central stenosis at C3-4 and C4-5 as well as diffuse degenerative changes and multiple levels of neuroforaminal stenosis. CT cervical spine also shows chronic changes but no evidence of fracture or acute pathology. Given that he had no symptoms prior to this coughing episode, I suspect that his pain is largely muscular in nature. I would recommend regular administration of muscle relaxer. It appears he was started on this yesterday. If he can tolerate this from a renal perspective, I would recommend increasing the dose of Flexeril to 10 mg every 8 hours. One could additionally consider more frequent administration of methocarbamol or even Valium. I would recommend working with physical therapy. If his symptoms are not improved with medical management and therapy, 1 could consider a pain management consult for consideration of trigger point injections or possibly epidural steroid injections. He is a poor surgical candidate in general and in particular with his current active medical issues including worsening JENA and active infection of his right foot. He can follow-up me on an as-needed basis. Consult date: 03/21/23 HPI: Irwin Cyr Jr. is a 73 year old male With history of morbid obesity, chronic lymphedema, sleep apnea on CPAP, AFib on Eliquis who presented to the hospital on Saturday with intractable neck pain. On Saturday, he had a coughing episode after which he started noticing some discomfort. On Saturday, the pain became so significant that he called an ambulance to come to the hospital. He describes constant pain in the middle of the back of his neck which worsens with any movement or activity. When the pain becomes severe, it can radiate toward the right shoulder. He denies any radicular pain or paresthesias into the arms. He feels a generalized sense of weakness when his pain becomes severe but otherwise denies focal weakness. He denies any history of neck pain prior to its onset a few days ago. He denies any changes recently in bowel or bladder function. He denies fevers or chills. He notably has been weak in his lower extremities since a lumbar laminectomy performed about 11 years ago at [facility] at which time there was a large CSF leak and apparently nerve root damage. He chronically has bilateral footdrop since that surgery as well as paresthesias in his legs. He has largely been wheelchair-bound since that surgery. He did get to a point once when he could walk with a walker, but he then had a fall and broke his leg last year, since when he has returned to a wheelchair. Review of Systems Review of Systems: All systems reviewed & are unremarkable except as noted in HPI and below PMFSH Past Medical History Medical History Atrial fibrillation Chronic acquired lymphedema Chronic anemia Chr
[2023-03-21] MEDS: APIXABAN 5 MG TABLET PO ×2 (09:53→20:47)
[2023-03-21] MEDS: BUMETANIDE 1 MG TABLET 3 MG PO ×3 (09:53→17:04)
[2023-03-21] MEDS: acetaZOLAMIDE TAB 250 MG TABLET PO (09:53)
[2023-03-21] MEDS: minoxidiL 10 MG TABLET PO (09:54)
[2023-03-21] MEDS: LORATADINE 10 MG TABLET PO (09:54)
[2023-03-21] MEDS: METOPROLOL TARTRATE 50 MG TAB PO ×2 (09:54→20:47)
[2023-03-21] MEDS: TAMSULOSIN HCL 0.4 MG CAPSULE PO (09:54)
[2023-03-21] MEDS: POTASSIUM CHLORIDE 20 MEQ ER TABLET 40 MEQ PO ×3 (09:54→17:04)
[2023-03-21] MEDS: GABAPENTIN 300 MG CAPSULE PO ×3 (09:54→17:04)
[2023-03-21] MEDS: SPIRONOLACTONE 25 MG TABLET PO (09:55)
[2023-03-21] MEDS: ceFAZolin 1 GM/NS 50 ML 1 GM/50 ML BAG IVPB ×2 (09:55→20:48)
[2023-03-21] MEDS: MICONAZOLE NITRATE 2% CREAM 30 GM TUBE 1 APPLIC TOPICAL ×2 (11:21→20:48)
--- NOTE | 2023-03-21 13:23 | PM.IMPN ---
Progress Note: A&P Assessment and Plan (1) Cellulitis: Qualifiers: Laterality: right Site of cellulitis: extremity Site of cellulitis of extremity: lower extremity Qualified Code(s): L03.115 - Cellulitis of right lower limb Code(s): L03.90 - Cellulitis, unspecified Status: Acute Assessment and Plan: Patient felt to have cellulitis on admission. X-ray shows no acute bony or joint abnormalities. No evidence of osteomyelitis. He was started on Rocephin this has since been stopped. Wound care consult has been obtained. White count is normal. Procalcitonin level is low. CRP is 3.3. Clinically, patient had purulent material draining from this dried eschar with surrounding faint erythema to suggest cellulitis. Abx resumed. Eschar was removed. Wound culture GNB. Blood cultures are no growth today. Continue current wound care. keep wound bed clean (2) Acute neck pain: Code(s): M54.2 - Cervicalgia Status: Acute Assessment and Plan: Patient had been coughing for few days. The morning prior to admission, he awoke with neck pain. The neck pain is become more severe. Patient has chronic neurologic changes but no apparent acute changes. Head CT showed no acute intracranial abnormalities. Cervical spine MRI shows moderate to severe cervical spondylosis. He has mild to moderate central canal stenosis. Cervical spine CT shows severe cervical spondylosis without acute findings. Lumbar spine MRI shows minimal progression since 2015 in the severe lumbar spondylosis with superimposed epidural lipomatosis and unchanged severe central canal stenosis at L2-L3. Range of motion exercises. Continue Flexeril and heating pad. Pain control PT/OT Neurosurgery consult ordered and appreciate their input. (3) Weakness: Code(s): R53.1 - Weakness Status: Acute Assessment and Plan: Multifactorial, likely 2/2 neck pain radiating into UE. Also with chronic weakness related to chronic low back pathology. TSH, B12/folate normal PT/OT (4) Stage 3b chronic kidney disease: Code(s): N18.32 - Chronic kidney disease, stage 3b Status: Acute Assessment and Plan: Cr 2.3 on admission. Cr stable. 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 Up to the chair toay. Still with severe neck pain but able to tolerate therapy. No CP or SOB Exam Narrative: AF 98.0 121/62 93 18 95% ra Gen - NARD Neck - poor neck ROM due to pain. tense posterior cervical musculature. Chest - distant BS CV - IRR; Tele showing AFib with controlled rate Abd - Soft, obese Ext - chronic venous stasis skin changes with woody and dark cobbling of the skin. irregular open area formed right boss Psych - Nml mood and affect Skin - 5x5cm purulent plaque right distal foot with surrounding pink-red blanchable erythema Objective Data Vital Signs Vital Signs: Vital Signs - 24 hr 03/20/23 14:00 03/20/23 16:04 03/20/23 21:46 Temperature 97.7 F Pulse Rate 108 H 110 H 110 H Respiratory Rate 19 Blood Pressure 128/62 Pulse Oximetry 98 Oxygen Delivery Fraction of Inspired Oxygen 03/20/23 20:00 03/20/23 20:00 03/20/23 22:00 Temperature 98.2 F Pulse Rate 112 H 111 H Respiratory Rate 18 Blood Pressure 122/65 Pulse Oximetry 96 Oxygen Delivery Room Air Fraction of Inspired Ox
[2023-03-21] MEDS: MORPHINE SULFATE (*CRX) 4 MG/ML INJ IV PUSH ×2 (13:58→20:47)
[2023-03-22] VITALS (10 sets, daily range): BP systolic 115–134; BP diastolic 57–68; PULSE 95–111; RESP 16–18; TEMP 36.3–37.2; O2SAT 96–97
[2023-03-22] MEDS: ACETAMINOPHEN 500 MG TABLET 1000 MG PO ×4 (00:50→17:49)
[2023-03-22 06:01] LABS: Basophils Absolute Auto 0.1 K/mm3 (0.0-0.1); Basophils Percent Auto 0.8 % (0.2-1.2); Eosinophils Absolute Auto 0.4 K/mm3 (0-0.3); Eosinophils Percent Auto 5.1 % (0-4.4); Hematocrit 38.6 % (42.0-52.0); Hemoglobin 12.1 g/dL (14.0-18.0); Immature Granulocyte Absolute 0.07 K/mm3 (0.00-0.031); Immature Granulocyte Percent A 0.8 % (0-0.5); Lymphocytes Absolute Auto 0.48 K/mm3 (0.9-3.2); Lymphocytes Percent Auto 5.7 % (18.3-44.2); Mean Corpuscular HGB Conc 31.3 g/dl (32-36); Mean Corpuscular Hemoglobin 31.5 pg (26-34); Mean Corpuscular Volume 100.5 fl (80-100); Mean Platelet Volume 9.7 fl (7.4-10.4); Monocytes Absolute Auto 0.8 K/mm3 (0.1-0.6); Neutrophils Absolute Auto 6.5 K/mm3 (1.3-6.7); Neutrophils Percent Auto 77.6 % (45.5-73.1); Platelet Count Result 273 k/mm3 (150-375); Red Blood Count 3.84 M/mm3 (4.6-6.20); Red Cell Distribution Width 13.9 % (11.5-14.5); White Blood Count 8.4 K/mm3 (4.5-10.0)
[2023-03-22 06:09] LABS: Alanine Aminotransferase 9 U/L (6-50); Alkaline Phosphatase 49 U/L (38-126); Anion Gap 7 mmol/L (8-16); Aspartate Amino Transferase 20 U/L (17-59); Bilirubin,Total 1.1 mg/dL (0.2-1.3); Blood Urea Nitrogen 32 mg/dL (9-20); Calcium 8.7 mg/dL (8.4-10.2); Carbon Dioxide 25 mmol/L (22-30); Chloride 106 mmol/L (98-107); Estimated CRCL calculation 40 ml/min; Estimated Glomerular Filt Rate 29; Glucose 116 mg/dL (65-110); Sodium 138 mmol/L (137-145)
[2023-03-22] MEDS: LEVOTHYROXINE SODIUM 100 MCG TABLET 200 MCG PO (06:30)
[2023-03-22] MEDS: CYCLOBENZAPRINE HCL 5 MG TABLET PO (06:30)
[2023-03-22] MEDS: MORPHINE SULFATE (*CRX) 4 MG/ML INJ IV PUSH (09:06)
[2023-03-22] MEDS: BUMETANIDE 1 MG TABLET 3 MG PO ×3 (09:39→17:48)
[2023-03-22] MEDS: minoxidiL 10 MG TABLET PO (09:40)
[2023-03-22] MEDS: LORATADINE 10 MG TABLET PO (09:40)
[2023-03-22] MEDS: POTASSIUM CHLORIDE 20 MEQ ER TABLET 40 MEQ PO ×3 (09:40→17:48)
[2023-03-22] MEDS: TAMSULOSIN HCL 0.4 MG CAPSULE PO (09:40)
[2023-03-22] MEDS: SPIRONOLACTONE 25 MG TABLET PO (09:40)
[2023-03-22] MEDS: GABAPENTIN 300 MG CAPSULE PO ×3 (09:40→17:48)
[2023-03-22] MEDS: acetaZOLAMIDE TAB 250 MG TABLET PO (09:40)
[2023-03-22] MEDS: METOPROLOL TARTRATE 50 MG TAB PO ×2 (09:40→20:49)
[2023-03-22] MEDS: APIXABAN 5 MG TABLET PO ×2 (09:41→20:49)
[2023-03-22] MEDS: ceFAZolin 1 GM/NS 50 ML 1 GM/50 ML BAG IVPB ×2 (09:41→20:49)
[2023-03-22] MEDS: MICONAZOLE NITRATE 2% CREAM 30 GM TUBE 1 APPLIC TOPICAL ×2 (12:17→20:49)
--- NOTE | 2023-03-22 12:40 | PM.IMPN ---
Progress Note: A&P Assessment and Plan (1) Cellulitis: Qualifiers: Laterality: right Site of cellulitis: extremity Site of cellulitis of extremity: lower extremity Qualified Code(s): L03.115 - Cellulitis of right lower limb Code(s): L03.90 - Cellulitis, unspecified Status: Acute Assessment and Plan: Patient felt to have cellulitis on admission. X-ray shows no acute bony or joint abnormalities. No evidence of osteomyelitis. He was started on Rocephin and changed to Ancef. Wound care consult was obtained. White count is normal. Procalcitonin level is low. CRP is 3.3. Clinically, patient had purulent material draining from this dried eschar with surrounding faint erythema consistent with cellulitis. Eschar was removed. Continue current wound care. Wound culture GNB. Blood cultures are no growth today. Continue current wound care. keep wound bed clean (2) Acute neck pain: Code(s): M54.2 - Cervicalgia Status: Acute Assessment and Plan: Patient had been coughing for few days. The morning prior to admission, he awoke with neck pain. The neck pain is become more severe. Patient has chronic neurologic changes but no apparent acute changes. Head CT showed no acute intracranial abnormalities. Cervical spine MRI shows moderate to severe cervical spondylosis. He has mild to moderate central canal stenosis. Cervical spine CT shows severe cervical spondylosis without acute findings. Lumbar spine MRI shows minimal progression since 2015 in the severe lumbar spondylosis with superimposed epidural lipomatosis and unchanged severe central canal stenosis at L2-L3. Range of motion exercises. Continue Flexeril and heating pad. Pain control and adjust meds today. Advance Flexeril. Add valium prn PT/OT Neurosurgery consult ordered and appreciate their input. (3) Weakness: Code(s): R53.1 - Weakness Status: Acute Assessment and Plan: Multifactorial, likely 2/2 neck pain radiating into UE. Also with chronic weakness related to chronic low back pathology. TSH, B12/folate normal Continue PT/OT (4) Stage 3b chronic kidney disease: Code(s): N18.32 - Chronic kidney disease, stage 3b Status: Acute Assessment and Plan: Cr 2.3 on admission. Cr stable. Continue to monitor (5) Obstructive sleep apnea: Code(s): G47.33 - Obstructive sleep apnea (adult) (pediatric) Status: Chronic Assessment and Plan: CPAP with sleep (6) Atrial fibrillation: Qualifiers: Atrial fibrillation type: longstanding persistent Qualified Code(s): I48.11 - Longstanding persistent atrial fibrillation Code(s): I48.91 - Unspecified atrial fibrillation Status: Acute Assessment and Plan: Chronic. Rate controlled. Continue Eliquis. 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 Still with neck pain with pain moving down to between his shoulder pain. No CP or SOB. Up to the chair today Exam Narrative: AF 98.9 125/68 110 18 97% ra Gen - NARD Neck - active ROM slightly better more to the left. Tense para cervical and para upper thoracic muscle Chest - clear to auscultation bilaterally, nml RR CV - IRR; Tele showing AFib with controlled rate Abd - Soft, obese, minimal diffuse tenderness Ext - chronic venous stasis skin changes with woody and dark cobbling of the skin. irregular open area formed right boss Psych - Nml mood and affect Skin - 5x5cm thick exudative plaque right distal foot w
[2023-03-22] MEDS: CYCLOBENZAPRINE HCL 10 MG TABLET PO ×2 (13:49→20:49)
[2023-03-22] MEDS: diazePAM (*CRX) 2 MG TABLET 1 MG PO (20:49)
[2023-03-23 05:19] VITALS: BP 125/69; PULSE 108; RESP 17; TEMP 36.5; O2SAT 97
[2023-03-23] MEDS: ACETAMINOPHEN 500 MG TABLET 1000 MG PO ×3 (05:28→17:10)
[2023-03-23] MEDS: CYCLOBENZAPRINE HCL 10 MG TABLET PO ×3 (05:28→21:19)
[2023-03-23] MEDS: LEVOTHYROXINE SODIUM 100 MCG TABLET 200 MCG PO (05:28)
[2023-03-23 08:32] VITALS: BP 152/79; PULSE 110
[2023-03-23] MEDS: POTASSIUM CHLORIDE 20 MEQ ER TABLET 40 MEQ PO ×3 (08:32→17:09)
[2023-03-23] MEDS: METOPROLOL TARTRATE 50 MG TAB PO ×2 (08:32→21:19)
[2023-03-23] MEDS: LORATADINE 10 MG TABLET PO (08:33)
[2023-03-23] MEDS: TAMSULOSIN HCL 0.4 MG CAPSULE PO (08:33)
[2023-03-23] MEDS: minoxidiL 10 MG TABLET PO (08:33)
[2023-03-23] MEDS: APIXABAN 5 MG TABLET PO ×2 (08:33→21:19)
[2023-03-23] MEDS: acetaZOLAMIDE TAB 250 MG TABLET PO (08:33)
[2023-03-23] MEDS: BUMETANIDE 1 MG TABLET 3 MG PO ×3 (08:33→17:09)
[2023-03-23] MEDS: GABAPENTIN 300 MG CAPSULE PO ×3 (08:33→17:09)
[2023-03-23] MEDS: oxyCODONE HCL (*CRX) 5 MG TAB IR PO ×4 (08:33→22:31)
[2023-03-23] MEDS: SPIRONOLACTONE 25 MG TABLET PO (08:33)
[2023-03-23] MEDS: MICONAZOLE NITRATE 2% CREAM 30 GM TUBE 1 APPLIC TOPICAL ×2 (08:37→21:24)
[2023-03-23] MEDS: ceFAZolin 1 GM/NS 50 ML 1 GM/50 ML BAG IVPB ×2 (09:40→21:19)
--- NOTE | 2023-03-23 12:02 | PM.IMPN ---
Progress Note: A&P Assessment and Plan (1) Cellulitis: Qualifiers: Laterality: right Site of cellulitis: extremity Site of cellulitis of extremity: lower extremity Qualified Code(s): L03.115 - Cellulitis of right lower limb Code(s): L03.90 - Cellulitis, unspecified Status: Acute Assessment and Plan: Patient felt to have cellulitis on admission. X-ray shows no acute bony or joint abnormalities. No evidence of osteomyelitis. He was started on Rocephin and changed to Ancef. Wound care consult was obtained. White count is normal. Procalcitonin level is low. CRP is 3.3. Clinically, patient had purulent material draining from this dried eschar with surrounding faint erythema consistent with cellulitis. Eschar was removed. Continue current wound care. Wound culture negative. Blood cultures are no growth today. Continue current wound care. keep wound bed clean (2) Acute neck pain: Code(s): M54.2 - Cervicalgia Status: Acute Assessment and Plan: Patient had been coughing for a few days. The morning prior to admission, he awoke with neck pain. The neck pain became more severe. Patient has chronic neurologic changes but no apparent acute changes. Head CT showed no acute intracranial abnormalities. Cervical spine CT shows severe cervical spondylosis without acute findings. Cervical spine MRI shows moderate to severe cervical spondylosis. He has mild to moderate central canal stenosis. Lumbar spine MRI shows minimal progression since 2015 in the severe lumbar spondylosis with superimposed epidural lipomatosis and unchanged severe central canal stenosis at L2-L3. Neurosurgery consult ordered and appreciate their input. Encourage range of motion exercises. Continue Flexeril and heating pad. Pain control and meds adjusted yesterday. Continue PT/OT (3) Weakness: Code(s): R53.1 - Weakness Status: Acute Assessment and Plan: Multifactorial, likely 2/2 neck pain radiating into UE. Also with chronic weakness related to chronic low back pathology. TSH, B12/folate normal Continue PT/OT (4) Stage 3b chronic kidney disease: Code(s): N18.32 - Chronic kidney disease, stage 3b Status: Acute Assessment and Plan: Cr 2.3 on admission. Cr stable. Continue to monitor (5) Obstructive sleep apnea: Code(s): G47.33 - Obstructive sleep apnea (adult) (pediatric) Status: Chronic Assessment and Plan: CPAP with sleep (6) Atrial fibrillation: Qualifiers: Atrial fibrillation type: longstanding persistent Qualified Code(s): I48.11 - Longstanding persistent atrial fibrillation Code(s): I48.91 - Unspecified atrial fibrillation Status: Acute Assessment and Plan: Chronic. Rate controlled. Continue Eliquis. Continue Lopressor Plan DVT prophylaxis with Eliquis GI prophylaxis not indicated Code status full code Dispostion - plan for SNF. 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 Still with significant neck pain but does concede some mild improvement. Eating okay. Exam Narrative: AF 997.7 152/79 110 17 97% ra Gen - NARD sitting up in his WC Neck - minimal improvement in ROM of the neck Chest - clear to auscultation bilaterally, nml RR CV - IRR Abd - Soft, obese, minimal diffuse tenderness Ext - chronic venous stasis skin changes with woody and dark cobbling of the skin. irregular open area to the right boss Psych - Nml mood and affect Skin - 5x5cm thick exudative plaque right distal foot that is drying with surrounding pink blanchable erythema Objective Data Vital Signs Vital Signs: Vital Signs - 24 hr 03/22/23 14:00 03/22/23 16:00 03/22/23 20:49
[2023-03-23 14:00] VITALS: BP 123/70; PULSE 112; RESP 18; TEMP 36; O2SAT 100
[2023-03-23] MEDS: EUCERIN CREAM 120 GM JAR 1 APPLIC TOPICAL (14:32)
[2023-03-23 20:41] VITALS: BP 141/74; PULSE 114; RESP 16; TEMP 36.8; O2SAT 97
[2023-03-23 21:19] VITALS: PULSE 88
[2023-03-24] VITALS (7 sets, daily range): BP systolic 120–144; BP diastolic 68–79; PULSE 106–109; RESP 20; TEMP 35.9–37.8; O2SAT 95–98
[2023-03-24] MEDS: ACETAMINOPHEN 500 MG TABLET 1000 MG PO ×3 (05:14→17:32)
[2023-03-24] MEDS: CYCLOBENZAPRINE HCL 10 MG TABLET PO ×3 (05:14→21:02)
[2023-03-24] MEDS: LEVOTHYROXINE SODIUM 100 MCG TABLET 200 MCG PO (05:14)
[2023-03-24 05:45] LABS: Basophils Absolute Auto 0.1 K/mm3 (0.0-0.1); Basophils Percent Auto 0.9 % (0.2-1.2); Eosinophils Absolute Auto 0.5 K/mm3 (0-0.3); Eosinophils Percent Auto 5.9 % (0-4.4); Hemoglobin 12.1 g/dL (14.0-18.0); Immature Granulocyte Absolute 0.05 K/mm3 (0.00-0.031); Immature Granulocyte Percent A 0.6 % (0-0.5); Lymphocytes Absolute Auto 0.46 K/mm3 (0.9-3.2); Lymphocytes Percent Auto 5.9 % (18.3-44.2); Mean Corpuscular Hemoglobin 31.4 pg (26-34); Mean Corpuscular Volume 101.3 fl (80-100); Mean Platelet Volume 9.5 fl (7.4-10.4); Monocytes Absolute Auto 0.8 K/mm3 (0.1-0.6); Monocytes Percent Auto 10.7 % (2.6-8.5); Platelet Count Result 279 k/mm3 (150-375); Red Blood Count 3.85 M/mm3 (4.6-6.20); Red Cell Distribution Width 13.6 % (11.5-14.5); White Blood Count 7.8 K/mm3 (4.5-10.0)
[2023-03-24 05:55] LABS: Alanine Aminotransferase 10 U/L (6-50); Albumin Level 4.1 g/dL (3.5-5.1); Alkaline Phosphatase 49 U/L (38-126); Anion Gap 12 mmol/L (8-16); Aspartate Amino Transferase 21 U/L (17-59); Bilirubin,Total 0.7 mg/dL (0.2-1.3); Blood Urea Nitrogen 37 mg/dL (9-20); Calcium 9.1 mg/dL (8.4-10.2); Carbon Dioxide 26 mmol/L (22-30); Chloride 102 mmol/L (98-107); Estimated CRCL calculation 39 ml/min; Estimated Glomerular Filt Rate 28; Glucose 121 mg/dL (65-110); Magnesium 2.5 mg/dL (1.6-2.3); Phosphorus 4.9 mg/dL (2.5-4.5); Potassium 4.6 mmol/L (3.4-5.0); Sodium 140 mmol/L (137-145)
[2023-03-24] MEDS: BUMETANIDE 1 MG TABLET 3 MG PO ×3 (08:49→17:33)
[2023-03-24] MEDS: minoxidiL 10 MG TABLET PO (08:49)
[2023-03-24] MEDS: TAMSULOSIN HCL 0.4 MG CAPSULE PO (08:49)
[2023-03-24] MEDS: acetaZOLAMIDE TAB 250 MG TABLET PO (08:50)
[2023-03-24] MEDS: METOPROLOL TARTRATE 50 MG TAB PO ×2 (08:50→20:21)
[2023-03-24] MEDS: GABAPENTIN 300 MG CAPSULE PO ×3 (08:50→17:33)
[2023-03-24] MEDS: LORATADINE 10 MG TABLET PO (08:50)
[2023-03-24] MEDS: SPIRONOLACTONE 25 MG TABLET PO (08:50)
[2023-03-24] MEDS: APIXABAN 5 MG TABLET PO ×2 (08:51→20:21)
[2023-03-24] MEDS: POTASSIUM CHLORIDE 20 MEQ ER TABLET 40 MEQ PO ×3 (08:51→17:33)
[2023-03-24] MEDS: ceFAZolin 1 GM/NS 50 ML 1 GM/50 ML BAG IVPB ×2 (08:51→20:21)
[2023-03-24] MEDS: EUCERIN CREAM 120 GM JAR 1 APPLIC TOPICAL ×2 (08:55→17:32)
[2023-03-24] MEDS: MICONAZOLE NITRATE 2% CREAM 30 GM TUBE 1 APPLIC TOPICAL ×2 (08:55→20:23)
--- NOTE | 2023-03-24 10:14 | PM.IMPN ---
Progress Note: A&P Assessment and Plan (1) Cellulitis: Qualifiers: Laterality: right Site of cellulitis: extremity Site of cellulitis of extremity: lower extremity Qualified Code(s): L03.115 - Cellulitis of right lower limb Code(s): L03.90 - Cellulitis, unspecified Status: Acute Assessment and Plan: Patient felt to have cellulitis on admission. X-ray shows no acute bony or joint abnormalities. No evidence of osteomyelitis. He was started on Rocephin and changed to Ancef. Wound care consult was obtained. White count is normal. Procalcitonin level is low. CRP is 3.3. Clinically, patient had purulent material draining from this dried eschar with surrounding faint erythema consistent with cellulitis. Eschar was removed. Continue current wound care. Wound culture negative. Blood cultures are no growth today. Continue current wound care. Continue abx. Keep wound bed clean (2) Acute neck pain: Code(s): M54.2 - Cervicalgia Status: Acute Assessment and Plan: Patient had been coughing for a few days. The morning prior to admission, he awoke with neck pain. The neck pain became more severe. Patient has chronic neurologic changes but no apparent acute changes. Head CT showed no acute intracranial abnormalities. Cervical spine CT shows severe cervical spondylosis without acute findings. Cervical spine MRI shows moderate to severe cervical spondylosis. He has mild to moderate central canal stenosis. Lumbar spine MRI shows minimal progression since 2015 in the severe lumbar spondylosis with superimposed epidural lipomatosis and unchanged severe central canal stenosis at L2-L3. Neurosurgery consult ordered and appreciate their input. Encourage range of motion exercises. Continue Flexeril and heating pad. Pain control and meds adjusted Continue PT/OT Discharge anytime (3) Weakness: Code(s): R53.1 - Weakness Status: Acute Assessment and Plan: Multifactorial, likely 2/2 neck pain radiating into UE. Also with chronic weakness related to chronic low back pathology. TSH, B12/folate normal Continue PT/OT (4) Stage 3b chronic kidney disease: Code(s): N18.32 - Chronic kidney disease, stage 3b Status: Acute Assessment and Plan: Cr 2.3 on admission. Cr stable. Continue to monitor (5) Obstructive sleep apnea: Code(s): G47.33 - Obstructive sleep apnea (adult) (pediatric) Status: Chronic Assessment and Plan: CPAP with sleep (6) Atrial fibrillation: Qualifiers: Atrial fibrillation type: longstanding persistent Qualified Code(s): I48.11 - Longstanding persistent atrial fibrillation Code(s): I48.91 - Unspecified atrial fibrillation Status: Acute Assessment and Plan: Chronic. Rate controlled. Continue Eliquis. Continue Lopressor Plan DVT prophylaxis with Eliquis GI prophylaxis not indicated Code status full code Disposition - plan for SNF. 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 No change in the neck pain. Eating okay. No n/v. No BM since admission. Exam Narrative: AF 96.6 132/73 109 20 95% ra Gen - NARD Neck - minimal improvement in ROM of the neck Chest - CTA bilaterlly CV - IRR S1/S2 Abd - Soft, obese, minimal diffuse tenderness Ext - chronic venous stasis skin changes with woody and dark cobbling of the skin. irregular area to the right boss with pink tissue at the base Psych - Nml mood and affect Skin - 5x5cm thick exudative plaque right distal foot that is drying with surrounding pink blanchable erythema Objective Data Vital Signs Vital Signs: Vital Signs - 24 hr 03/23/23 14:00 03/23/23 20:41 03/23/23 21:19 Tempera
[2023-03-24] MEDS: oxyCODONE HCL (*CRX) 5 MG TAB IR PO ×2 (11:04→20:21)
[2023-03-24] MEDS: polyethylene glycoL 3350 17 GM POWD.PACK PO ×2 (11:06→17:34)
[2023-03-25 06:00] VITALS: BP 115/70; PULSE 108; RESP 20; TEMP 37; O2SAT 98
[2023-03-25] MEDS: CYCLOBENZAPRINE HCL 10 MG TABLET PO ×3 (06:05→20:57)
[2023-03-25] MEDS: ACETAMINOPHEN 500 MG TABLET 1000 MG PO ×3 (06:05→17:05)
[2023-03-25] MEDS: LEVOTHYROXINE SODIUM 100 MCG TABLET 200 MCG PO (06:05)
--- NOTE | 2023-03-25 08:30 | PM.DS ---
DS: Admitting Diagnosis Discharge Date 03/25/23 Admitting Diagnosis Neck pain DS: Discharge Diagnosis Discharge Diagnosis (1) Cellulitis: Qualifiers: Laterality: right Site of cellulitis: extremity Site of cellulitis of extremity: lower extremity Qualified Code(s): L03.115 - Cellulitis of right lower limb Code(s): L03.90 - Cellulitis, unspecified Status: Acute (2) Acute neck pain: Code(s): M54.2 - Cervicalgia Status: Acute (3) Weakness: Code(s): R53.1 - Weakness Status: Acute (4) Stage 3b chronic kidney disease: Code(s): N18.32 - Chronic kidney disease, stage 3b Status: Acute (5) Obstructive sleep apnea: Code(s): G47.33 - Obstructive sleep apnea (adult) (pediatric) Status: Chronic (6) Atrial fibrillation: Qualifiers: Atrial fibrillation type: longstanding persistent Qualified Code(s): I48.11 - Longstanding persistent atrial fibrillation Code(s): I48.91 - Unspecified atrial fibrillation Status: Acute DS: Summary Hospital Course Reason for hospitalization: 73-year-old male with history of severe refractory anasarca on multiple diuretics, AFib, CHF and chronic lymphedema who presented with severe neck pain without trauma. Please see H&P for details. Hospital Course: Patient had been coughing for a few days.? The morning prior to admission, he awoke with neck pain.? The neck pain became more severe.? Patient has chronic neurologic changes but no apparent acute changes. Head CT showed no acute intracranial abnormalities. Cervical spine CT shows severe cervical spondylosis without acute findings. Cervical spine MRI shows moderate to severe cervical spondylosis.? He has mild to moderate central canal stenosis. Lumbar spine MRI shows minimal progression since 2015 in the severe lumbar spondylosis with superimposed epidural lipomatosis and unchanged severe central canal stenosis at L2-L3. Neurosurgery consult ordered and appreciate their input. He was treated with Flexeril, narcotics and heating pad. PT/OT ordered and he was encouraged to do range of motion exercises. Consider pain management consult for consideration of trigger point injections or possibly epidural steroid injections.? Patient felt to have right foot cellulitis on admission.? Right foot X-ray shows no acute bony or joint abnormalities.? No evidence of osteomyelitis.? He was started on Rocephin and changed to Ancef.? Wound care consult was obtained.? White count remained normal.? Procalcitonin level is low.? CRP is 3.3. Clinically, patient had evidence of cellulitis. Wound culture negative.? Blood cultures are negative. Low grade temperature yesterday probably atelectasis since WBC normal and on abx without clinically worsening findings. His other chronic medical problems remained stable. He overall did well but had minimal improvement in the neck ROM. He was transferred to [facility] for further rehab. Status at Discharge Cognitive/behavioral status at discharge: stable Time Spent with Patient Time attestation: Total time spent providing and/or coordinating discharge services: 38 minutes Time spent: Greater than 30 minutes Exam Narrative: Tm 100.1 98.6 115/70 108 20 98% ra Gen - NARD lying almost flat in bed Neck - supple. no obvious masses. tender para-cervical area with minimal active ROM of the neck Chest - distant, clear BS. CV - IRR S1/S2 Abd - Soft, obese, NT Ext - chronic venous stasis skin changes with woody and dark cobbling of the skin that is improved. irregular area to the right boss with pink tissue at the base Psych - Nml mood and affect Skin - 5x5cm thick exudative plaque right distal foot with very faint surrounding erythema Discharge Plan Discharge Attending physician on discharge: Panda Kc Consulting providers: Anirudh Zuñiga Discharging Clinician: Panda Kc Anticipated Discharge Date/Time:
[2023-03-25 09:26] VITALS: PULSE 113
[2023-03-25] MEDS: POTASSIUM CHLORIDE 20 MEQ ER TABLET 40 MEQ PO ×3 (09:26→17:05)
[2023-03-25] MEDS: GABAPENTIN 300 MG CAPSULE PO ×3 (09:26→17:05)
[2023-03-25] MEDS: METOPROLOL TARTRATE 50 MG TAB PO ×2 (09:26→20:56)
[2023-03-25] MEDS: APIXABAN 5 MG TABLET PO ×2 (09:26→20:56)
[2023-03-25] MEDS: BUMETANIDE 1 MG TABLET 3 MG PO ×3 (09:28→17:05)
[2023-03-25] MEDS: SPIRONOLACTONE 25 MG TABLET PO (09:28)
[2023-03-25] MEDS: acetaZOLAMIDE TAB 250 MG TABLET PO (09:28)
[2023-03-25] MEDS: minoxidiL 10 MG TABLET PO (09:28)
[2023-03-25] MEDS: TAMSULOSIN HCL 0.4 MG CAPSULE PO (09:28)
[2023-03-25] MEDS: LORATADINE 10 MG TABLET PO (09:28)
[2023-03-25] MEDS: ceFAZolin 1 GM/NS 50 ML 1 GM/50 ML BAG IVPB ×2 (09:29→20:56)
[2023-03-25] MEDS: oxyCODONE HCL (*CRX) 5 MG TAB IR PO ×2 (09:38→16:30)
[2023-03-25] MEDS: MICONAZOLE NITRATE 2% CREAM 30 GM TUBE 1 APPLIC TOPICAL ×2 (09:42→20:57)
[2023-03-25] MEDS: EUCERIN CREAM 120 GM JAR 1 APPLIC TOPICAL ×2 (09:42→17:07)
[2023-03-25] MEDS: polyethylene glycoL 3350 17 GM POWD.PACK PO (09:43)
[2023-03-25 14:00] VITALS: BP 132/77; PULSE 107; RESP 20; TEMP 35.9; O2SAT 96
[2023-03-25 20:56] VITALS: PULSE 99
[2023-03-25] MEDS: diazePAM (*CRX) 2 MG TABLET 1 MG PO (20:56)
[2023-03-25 22:00] VITALS: BP 115/64; PULSE 103; RESP 20; TEMP 36.6; O2SAT 98
[2023-03-25 22:42] VITALS: PULSE 99; O2SAT 96
[2023-03-26 06:00] VITALS: BP 122/62; PULSE 107; RESP 21; TEMP 36.1; O2SAT 100
[2023-03-26] MEDS: LEVOTHYROXINE SODIUM 100 MCG TABLET 200 MCG PO (06:55)
[2023-03-26] MEDS: CYCLOBENZAPRINE HCL 10 MG TABLET PO ×2 (06:55→14:00)
[2023-03-26] MEDS: ACETAMINOPHEN 500 MG TABLET 1000 MG PO ×3 (06:55→17:10)
[2023-03-26 07:55] LABS: Potassium 4.7 mmol/L (3.4-5.0)
[2023-03-26] MEDS: oxyCODONE HCL (*CRX) 5 MG TAB IR PO ×2 (09:15→17:09)
[2023-03-26] MEDS: ceFAZolin 1 GM/NS 50 ML 1 GM/50 ML BAG IVPB (09:16)
[2023-03-26 09:17] VITALS: PULSE 101
[2023-03-26] MEDS: METOPROLOL TARTRATE 50 MG TAB PO (09:17)
[2023-03-26] MEDS: TAMSULOSIN HCL 0.4 MG CAPSULE PO (09:17)
[2023-03-26] MEDS: APIXABAN 5 MG TABLET PO (09:17)
[2023-03-26] MEDS: GABAPENTIN 300 MG CAPSULE PO ×3 (09:17→17:10)
[2023-03-26] MEDS: BUMETANIDE 1 MG TABLET 3 MG PO ×3 (09:17→17:10)
[2023-03-26] MEDS: minoxidiL 10 MG TABLET PO (09:17)
[2023-03-26] MEDS: POTASSIUM CHLORIDE 20 MEQ ER TABLET 40 MEQ PO ×3 (09:18→17:09)
[2023-03-26] MEDS: LORATADINE 10 MG TABLET PO (09:18)
[2023-03-26] MEDS: MICONAZOLE NITRATE 2% CREAM 30 GM TUBE 1 APPLIC TOPICAL (09:18)
[2023-03-26] MEDS: acetaZOLAMIDE TAB 250 MG TABLET PO (09:18)
[2023-03-26] MEDS: SPIRONOLACTONE 25 MG TABLET PO (09:18)
[2023-03-26] MEDS: EUCERIN CREAM 120 GM JAR 1 APPLIC TOPICAL ×2 (09:19→17:10)
--- NOTE | 2023-03-26 10:50 | PC.NURSE ---
spoke with pt about no BM in many days, he is agreeable at this time to take miralax
[2023-03-26] MEDS: polyethylene glycoL 3350 17 GM POWD.PACK PO (10:53)
[2023-03-26 14:35] VITALS: BP 107/63; PULSE 80; RESP 16; TEMP 36.6; O2SAT 98
--- NOTE | 2023-03-26 14:45 | PC.NURSE ---
call from [facility] they have been in contact with KHALIF and Dr Kc about pt not having a BM, [facility]HALIF can take pt if he has a KUB which comes back negative, [facility] has contacted
--- NOTE | 2023-03-26 17:38 | PM.DS ---
DS: Admitting Diagnosis Discharge Date 03/26/23 Admitting Diagnosis Neck pain DS: Discharge Diagnosis Discharge Diagnosis (1) Cellulitis: Qualifiers: Laterality: right Site of cellulitis: extremity Site of cellulitis of extremity: lower extremity Qualified Code(s): L03.115 - Cellulitis of right lower limb Code(s): L03.90 - Cellulitis, unspecified Status: Acute (2) Acute neck pain: Code(s): M54.2 - Cervicalgia Status: Acute (3) Weakness: Code(s): R53.1 - Weakness Status: Acute (4) Stage 3b chronic kidney disease: Code(s): N18.32 - Chronic kidney disease, stage 3b Status: Acute (5) Obstructive sleep apnea: Code(s): G47.33 - Obstructive sleep apnea (adult) (pediatric) Status: Chronic (6) Atrial fibrillation: Qualifiers: Atrial fibrillation type: longstanding persistent Qualified Code(s): I48.11 - Longstanding persistent atrial fibrillation Code(s): I48.91 - Unspecified atrial fibrillation Status: Acute DS: Summary Hospital Course Reason for hospitalization: 73-year-old male with history of severe refractory anasarca on multiple diuretics, AFib, CHF and chronic lymphedema who presented with severe neck pain without trauma. Please see H&P for details. Hospital Course: Patient had been coughing for a few days.? The morning prior to admission, he awoke with neck pain.? The neck pain became more severe.? Patient has chronic neurologic changes but no apparent acute changes. Head CT showed no acute intracranial abnormalities. Cervical spine CT shows severe cervical spondylosis without acute findings. Cervical spine MRI shows moderate to severe cervical spondylosis.? He has mild to moderate central canal stenosis. Lumbar spine MRI shows minimal progression since 2015 in the severe lumbar spondylosis with superimposed epidural lipomatosis and unchanged severe central canal stenosis at L2-L3. Neurosurgery consult ordered and appreciate their input. He was treated with Flexeril, narcotics and heating pad. PT/OT ordered and he was encouraged to do range of motion exercises. Consider pain management consult for consideration of trigger point injections or possibly epidural steroid injections.? Patient felt to have right foot cellulitis on admission.? Right foot X-ray shows no acute bony or joint abnormalities.? No evidence of osteomyelitis.? He was started on Rocephin and changed to Ancef.? Wound care consult was obtained.? White count remained normal.? Procalcitonin level is low.? CRP is 3.3. Clinically, patient had evidence of cellulitis. Wound culture negative.? Blood cultures are negative. His other chronic medical problems remained stable. He was discharged on 03/25 but the bed was not available. He was held overnight. No issues. He feels his neck pain is better today. He slept well. KUB requested and showing no acute findings. He overall did well and last able to be discharged on 03/26/23 Status at Discharge Cognitive/behavioral status at discharge: stable Time Spent with Patient Time attestation: Total time spent providing and/or coordinating discharge services: 34 minutes Time spent: Greater than 30 minutes Exam Narrative: AF 97.8 107/63 80 16 98% ra Gen - NARD Chest - distant, clear BS. CV - IRR S1/S2 Abd - Soft, obese, NT Ext - chronic venous stasis skin changes with woody and dark cobbling of the skin that is improved. irregular area to the right boss with pink tissue at the base Psych - Nml mood and affect Skin - 5x5cm plaque right distal foot with very faint surrounding erythema DS: Data Data Completed and Pending Labs on day of discharge: Labs from last 24 hours 03/26/23 07:12 Potassium 4.7 Discharge Plan Discharge Attending physician on discharge: Panda Kc Consulting providers: Anirudh Zuñiga Discharging Clinician: Panda Kc Anticipated Disc
== END 2023-03-26 20:30 | DRG 603 ==
LOC: ANHED 20:04 → ANH3MEDSUR 20:32 → ANH3MED 03-19 04:04
PROVIDERS: Student in an Organized Health Care Education/Training Program; Admitting Provider Internal Medicine; Emergency Provider Emergency Medicine; PCP Family Medicine; Visit Provider Internal Medicine
DX: L03.115 Cellulitis of right lower limb (principal); L97.919 Non-pressure chronic ulcer of unspecified part of right lower leg with unspecified severity; I13.0 Hypertensive heart and chronic kidney disease with heart failure and stage 1 through stage 4 chronic kidney disease, or unspecified chronic kidney disease; I48.20 Chronic atrial fibrillation, unspecified; Z68.41 Body mass index [BMI] 40.0-44.9, adult; I50.9 Heart failure, unspecified; I87.2 Venous insufficiency (chronic) (peripheral); I89.0 Lymphedema, not elsewhere classified; N18.32 Chronic kidney disease, stage 3b; E78.5 Hyperlipidemia, unspecified; E66.01 Morbid (severe) obesity due to excess calories; E03.9 Hypothyroidism, unspecified; K21.9 Gastro-esophageal reflux disease without esophagitis; L71.9 Rosacea, unspecified; M54.2 Cervicalgia; M47.812 Spondylosis without myelopathy or radiculopathy, cervical region; M48.02 Spinal stenosis, cervical region; M47.816 Spondylosis without myelopathy or radiculopathy, lumbar region; M48.061 Spinal stenosis, lumbar region without neurogenic claudication; M21.372 Foot drop, left foot; M21.371 Foot drop, right foot; G47.33 Obstructive sleep apnea (adult) (pediatric); G89.29 Other chronic pain; G62.9 Polyneuropathy, unspecified; Z20.822 Contact with and (suspected) exposure to COVID-19; Z79.82 Long term (current) use of aspirin; Z87.891 Personal history of nicotine dependence; Z99.3 Dependence on wheelchair
CPT/HCPCS: 36415; 70450; 71045; 72125; 72141; 72148; 73620; 74019; 80053; 80069; 81003; 82570; 82607; 82728; 82746; 83540; 83550; 83735; 83970; 84100; 84132; 84145; 84156; 84443; 84484; 85025; 85610; 86140; 87040; 87070; 87205; 87637; 93005; 94002; 96374; 96376; 97110; 97161; 97165; 97530; 97535; 99285; A9270; J0690; J0696; J2270

== ENCOUNTER 2023-03-30 16:16 | Emergency (ER) | payer OTHER, MEDICARE, SELFPAY ==
--- NOTE | ~2023-03-30 | CT_ITS ---
CT OF right foot EXAMINATION: CT foot RT wo con DATE: 03/30/2023 18:15 INDICATION: Wound right dorsal foot, evaluate for deeper infection TECHNIQUE: Computed tomography (CT) of the right foot was performed without intravenous contrast. Aut omated exposure control and iterative reconstruction technique were employed. The dose-length product was 609.89 mGy-cm. COMPARISON: X-ray right foot 03/18/2023 FINDINGS: Dermal thickening and considerable subcutaneous fat stranding over the dorsum of the foot. No definit e soft tissue defect or fluid collection. Diffuse subcutaneous edema about the foot is present, with more significant dermal thickening and edema in the lower leg and about the ankle. Again, no fluid co llection is noted. Osteopenic bones. Degenerative changes in the ankle joint and midfoot. No fracture or dislocation. No definite osseous erosion or periosteal change. IMPRESSION: Right lower leg, ankle, and dorsal foot edema/inflammation, consider cellulitis. No definite soft tissue fluid collection although evaluation for abscess is limited without contrast. No CT evidence of osteomyelitis. If clinical concern for osteomyelitis persists, consider MRI without and with contrast. Reviewed, dictated and finalized at location K. WORK SALVAGE INSPECTOR IMPRESSION: Right lower leg, ankle, and dorsal foot edema/inflammation, consider cellulitis . No definite soft tissue fluid collection although evaluation for abscess is dubose ited without contrast. No CT evidence of osteomyelitis. If clinical concern for osteomyelitis persists , consider MRI without and with contrast.
[2023-03-30 16:20] VITALS: BP 101/77; PULSE 110; RESP 20; TEMP 36.4; O2SAT 95
--- NOTE | 2023-03-30 17:40 | ED.GENADULT ---
HPI - General Adult General Chief complaint: Unspecified Stated complaint: AMS Time Seen by Provider: 03/30/23 16:32 History of Present Illness HPI narrative: Patient is a 73-year-old male presenting for evaluation of a foot wound. Patient was discharged from this facility earlier this week to a rehab center. He has had a wound on his right foot for several weeks and has been treated for cellulitis. The wound has continued so his rehab center sent him back in to evaluate for deeper infection. Patient denies any new symptoms. States that he always has intermittent pain in this foot. He complains of chronic neck and back pain that is unchanged. No further complaints. Related Data Home Medications Medication Instructions Recorded Confirmed loratadine 10 mg tablet (Claritin) 10 mg PO DAILY 07/12/20 03/26/23 acetaminophen 325 mg capsule 1,000 mg PO Q6H PRN Pain 04/20/21 03/26/23 (Tylenol) polyethylene glycol 3350 17 17 g PO PRN PRN Constipation 06/02/21 03/26/23 gram/dose oral powder (Miralax) acetazolamide 250 mg tablet 250 mg PO DAILY 11/19/22 03/26/23 fluticasone propionate 50 1 spray intranasal DAILY PRN 11/19/22 03/26/23 mcg/actuation nasal Congestion spray,suspension (Flonase Allergy Relief) minoxidil 10 mg tablet 10 mg PO DAILY 11/19/22 03/26/23 spironolactone 25 mg tablet 25 mg PO DAILY 11/19/22 03/26/23 potassium chloride 20 mEq 40 meq PO TID 03/19/23 03/26/23 tablet,extended release (K-Tab) Allergies Allergy/AdvReac Type Severity Reaction Status Date / Time Sulfa (Sulfonamide Allergy Mild Rash Verified 03/18/23 11:58 Antibiotics) Penicillins Allergy Unknown SWELLING Verified 03/18/23 11:58 codeine AdvReac Mild N/V Verified 03/18/23 11:58 hydrocodone AdvReac Mild N/V Verified 03/18/23 11:58 tramadol AdvReac Mild Nausea Verified 03/18/23 11:58 Review of Systems Review of Systems: All systems reviewed & are unremarkable except as noted in HPI and below PMFSH Past Medical History Medical History Atrial fibrillation Chronic acquired lymphedema Chronic anemia Chronic congestive heart failure Echocardiogram in May 2021 was technically difficult and showed normal LV systolic function with an EF of 60 to 65%, severely enlarged RV chamber with moderate to severely reduced RV systolic function, severe biatrial enlargement, and moderate pulmonary hypertension. Chronic kidney disease Chronic low back pain Chronic venous insufficiency CKD (chronic kidney disease) stage 3, GFR 30-59 ml/min Required temporary dialysis and spring 2021. Dyslipidemia Environmental allergies Essential (primary) hypertension GERD without esophagitis Hypothyroidism Lymphedema of both lower extremities Obstructive sleep apnea Ocular rosacea Peripheral polyneuropathy Rosacea Surgical History Surgical History H/O eye surgery (~2005) [id number] [facility] History of carpal tunnel release History of cholecystectomy (2008) History of discectomy (2012) History of foot surgery Left Foot History of rotator cuff surgery Bilateral. History of thoracic surgery Pericardial effusion s/p pericardial window thought secondary to minoxidil, in 2010 at [facility]. Family History Family History Father Cardiovascular disease Grandparent Cancer Mother COPD (chronic obstructive pulmonary disease) Father Family history of cardiovascular disease Grandparent Family history of malignant neoplasm Social History Social History Social History: Surrogate medical decision maker: Shyla Hurst, daughter. Code status: Full code. Smoking packs per day: 2 Smoking cigarettes per day: 40.0 Years smoked: 15 Smoking pack-years: 30.00 Smoking status: Former smoker Tobacco type: ci
[2023-03-30 18:07] LABS: Basophils Absolute Auto 0.1 K/mm3 (0.0-0.1); Basophils Percent Auto 0.8 % (0.2-1.2); Eosinophils Absolute Auto 0.3 K/mm3 (0-0.3); Eosinophils Percent Auto 2.3 % (0-4.4); Hematocrit 41.2 % (42.0-52.0); Hemoglobin 13.4 g/dL (14.0-18.0); Immature Granulocyte Absolute 0.16 K/mm3 (0.00-0.031); Immature Granulocyte Percent A 1.1 % (0-0.5); Lymphocytes Absolute Auto 0.71 K/mm3 (0.9-3.2); Lymphocytes Percent Auto 4.9 % (18.3-44.2); Mean Corpuscular HGB Conc 32.5 g/dl (32-36); Mean Corpuscular Hemoglobin 31.4 pg (26-34); Mean Corpuscular Volume 96.5 fl (80-100); Mean Platelet Volume 9.8 fl (7.4-10.4); Monocytes Percent Auto 7.2 % (2.6-8.5); Neutrophils Absolute Auto 12.1 K/mm3 (1.3-6.7); Neutrophils Percent Auto 83.7 % (45.5-73.1); Platelet Count Result 412 k/mm3 (150-375); Red Blood Count 4.27 M/mm3 (4.6-6.20); Red Cell Distribution Width 13.4 % (11.5-14.5); White Blood Count 14.4 K/mm3 (4.5-10.0)
[2023-03-30 18:17] LABS: Lactic Acid Reflex 1.7 mmol/L (0.7-2.0)
[2023-03-30 18:19] LABS: Alanine Aminotransferase 18 U/L (6-50); Albumin Level 4.9 g/dL (3.5-5.1); Alkaline Phosphatase 65 U/L (38-126); Anion Gap 16 mmol/L (8-16); Aspartate Amino Transferase 34 U/L (17-59); Bilirubin,Total 1.3 mg/dL (0.2-1.3); Blood Urea Nitrogen 54 mg/dL (9-20); Calcium 10.3 mg/dL (8.4-10.2); Carbon Dioxide 23 mmol/L (22-30); Chloride 97 mmol/L (98-107); Estimated CRCL calculation 35 ml/min; Estimated Glomerular Filt Rate 22; Glucose 129 mg/dL (65-110); Potassium 5.2 mmol/L (3.4-5.0); Sodium 136 mmol/L (137-145)
[2023-03-30] MEDS: MORPHINE SULFATE (*CRX) 4 MG/ML INJ IV PUSH (18:20)
[2023-03-30] MEDS: SODIUM CHLORIDE 0.9% IV 1,000 ML 999 ML IV CONT (18:21)
[2023-03-30] MEDS: ceFAZolin SODIUM 1 GM VIAL IV PUSH (20:04)
[2023-03-30 20:12] VITALS: BP 155/79; PULSE 116; RESP 20; O2SAT 96
--- NOTE | 2023-03-30 21:07 | PC.NURSE ---
IV kept in. Patient is to have IV antibiotics at [facility].
== END 2023-03-30 21:08 | disposition home or self-care (01) ==
PROVIDERS: Emergency Provider Emergency Medicine
DX: L03.115 Cellulitis of right lower limb (principal); I48.91 Unspecified atrial fibrillation; I11.0 Hypertensive heart disease with heart failure; I50.9 Heart failure, unspecified; N18.30 Chronic kidney disease, stage 3 unspecified; D64.9 Anemia, unspecified; E78.5 Hyperlipidemia, unspecified; K21.9 Gastro-esophageal reflux disease without esophagitis; E03.9 Hypothyroidism, unspecified; G47.33 Obstructive sleep apnea (adult) (pediatric); G62.9 Polyneuropathy, unspecified; Z87.891 Personal history of nicotine dependence; Z79.01 Long term (current) use of anticoagulants; Z79.891 Long term (current) use of opiate analgesic
CPT/HCPCS: 36415; 73700; 80053; 83605; 85025; 96361; 96374; 96375; 99284; J0690; J2270; J7030

== ENCOUNTER 2023-04-11 13:40 | Inpatient (IN) | payer MEDICARE, OTHER, SELFPAY ==
[2023-04-11] VITALS (9 sets, daily range): BP systolic 109–141; BP diastolic 58–90; PULSE 102–108; RESP 12–20; TEMP 36.2–36.9; O2SAT 95–100
--- NOTE | ~2023-04-11 | XR_ITS ---
EXAMINATION: XR md joint inject/asp w image DATE: 04/11/2023 15:22 INDICATION: Left wrist pain. TECHNIQUE: A time-out was performed to verify the patient's name, date of , and procedure to b e performed. The procedure including the risks, benefits, and alternatives was discussed with the pat ient. Risks discussed included bleeding and infection. The patient understood the risks and agreed to proceed. The skin overlying the left radiocarpal joint was prepped and draped in usual sterile fash ion. Anesthetic was administered with 1% lidocaine subcutaneously. An 18 G needle was advanced unde r fluoroscopic guidance into the joint. No fluid could be aspirated. Injection of 1 mL of Omnipaque 2 40 confirmed intra-articular position of the needle. The needle was removed and the entry site was c leaned and dressed. There were no immediate complications. Fluoroscopy exposure time was 0.1 minutes . The total number of images was 3. FINDINGS: Real-time fluoroscopy demonstrates the needle in the left radiocarpal joint. IMPRESSION: 1. Fluoroscopy guided left radiocarpal joint aspiration yielding no fluid. Reviewed, dictated and finalized at location A. E ADVISOR
--- NOTE | ~2023-04-11 | XR_ITS ---
EXAMINATION: XR wrist LT min 3V DATE: 04/11/2023 14:30 INDICATION: Left wrist pain and swelling. TECHNIQUE: 3 views of left wrist were obtained. COMPARISON: None. FINDINGS: Bone alignment is normal. No fracture. There is severe osteoarthritis of triscaphe joint an d first carpometacarpal joint. There is mild osteoarthritis of distal radioulnar joint. IMPRESSION: 1. Polyarticular osteoarthritis. Reviewed, dictated and finalized at location A. ENDER MANAGER
--- NOTE | ~2023-04-11 | XR_ITS ---
EXAMINATION: XR finger 2nd RT min 2V DATE: 04/11/2023 14:30 INDICATION: Pain, swelling and erythema at the right second digit TECHNIQUE: Dorsal palmar, lateral and 2 oblique views of the right digit were obtained COMPARISON: None FINDINGS: Bone alignment is normal. No acute fracture. Small ossicle at the tip of the ulnar styloid process wh ich could represent either a chronic nonunited fracture, loose osteochondral body or heterotopic ossi marissa related to chronic soft tissue injury. Polyarticular osteoarthritis, severe at the triscaphe join t, moderate severity at the first carpometacarpal and first metacarpophalangeal joints and mild at ma jority the remaining visualized joints in the right wrist and hand. Nonspecific cystic change with th in sclerotic margins at the base of the ulnar styloid process. There are couple surgical clips in the soft tissues dorsal to the first metacarpal. Soft tissue swelling about the second proximal phalanx and dorsal to the second proximal interphalangeal joint and dorsal to the second and third metacarpop halangeal joints. Vascular calcifications at the radial artery. IMPRESSION: 1. No acute osseous abnormality. 2. 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 Reviewed, dictated and finalized at location A. NURSERY
[2023-04-11] MEDS: MORPHINE SULFATE (*CRX) 4 MG/ML INJ IV PUSH (14:09)
[2023-04-11 14:24] LABS: Basophils Percent Auto 0.3 % (0.2-1.2); Eosinophils Absolute Auto 0.3 K/mm3 (0-0.3); Hematocrit 40.3 % (42.0-52.0); Hemoglobin 13.1 g/dL (14.0-18.0); Immature Granulocyte Absolute 0.16 K/mm3 (0.00-0.031); Immature Granulocyte Percent A 1.2 % (0-0.5); Lymphocytes Absolute Auto 0.52 K/mm3 (0.9-3.2); Lymphocytes Percent Auto 3.8 % (18.3-44.2); Mean Corpuscular HGB Conc 32.5 g/dl (32-36); Mean Corpuscular Hemoglobin 30.5 pg (26-34); Mean Corpuscular Volume 93.7 fl (80-100); Mean Platelet Volume 10.4 fl (7.4-10.4); Monocytes Absolute Auto 1.1 K/mm3 (0.1-0.6); Monocytes Percent Auto 7.9 % (2.6-8.5); Neutrophils Absolute Auto 11.7 K/mm3 (1.3-6.7); Neutrophils Percent Auto 84.8 % (45.5-73.1); Platelet Count Result 342 k/mm3 (150-375); Red Cell Distribution Width 13.1 % (11.5-14.5); White Blood Count 13.7 K/mm3 (4.5-10.0)
[2023-04-11 14:58] LABS: Alanine Aminotransferase 19 U/L (6-50); Albumin Level 4.2 g/dL (3.5-5.1); Alkaline Phosphatase 63 U/L (38-126); Anion Gap 12 mmol/L (8-16); Aspartate Amino Transferase 18 U/L (17-59); Bilirubin,Total 0.9 mg/dL (0.2-1.3); Blood Urea Nitrogen 51 mg/dL (9-20); CRP 13.6 mg/dL (<1.0); Calcium 9.2 mg/dL (8.4-10.2); Carbon Dioxide 25 mmol/L (22-30); Chloride 98 mmol/L (98-107); Estimated CRCL calculation 49 ml/min; Estimated Glomerular Filt Rate 33; Glucose 131 mg/dL (65-110); Potassium 3.9 mmol/L (3.4-5.0); Sodium 135 mmol/L (137-145)
[2023-04-11 15:11] LABS: Erythrocyte Sedimentation Rate 97 mm/hr (0-20)
--- NOTE | 2023-04-11 15:37 | ED.GENADULT ---
HPI - General Adult General Chief complaint: Extremity Injury, Upper Stated complaint: Wrist pain History of Present Illness HPI narrative: Patient is a 73-year-old male who presents ER with pain to the left wrist and right 2nd digit. Worsening over last 2 days. Red and swollen. Has pain with flexion and extension. No fevers or chills or sweats. Denies trauma. Related Data Home Medications Medication Instructions Recorded Confirmed loratadine 10 mg tablet (Claritin) 10 mg PO DAILY 07/12/20 03/26/23 acetaminophen 325 mg capsule 1,000 mg PO Q6H PRN Pain 04/20/21 03/26/23 (Tylenol) polyethylene glycol 3350 17 17 g PO PRN PRN Constipation 06/02/21 03/26/23 gram/dose oral powder (Miralax) acetazolamide 250 mg tablet 250 mg PO DAILY 11/19/22 03/26/23 fluticasone propionate 50 1 spray intranasal DAILY PRN 11/19/22 03/26/23 mcg/actuation nasal Congestion spray,suspension (Flonase Allergy Relief) minoxidil 10 mg tablet 10 mg PO DAILY 11/19/22 03/26/23 potassium chloride 20 mEq 40 meq PO TID 03/19/23 03/26/23 tablet,extended release (K-Tab) Allergies Allergy/AdvReac Type Severity Reaction Status Date / Time Sulfa (Sulfonamide Allergy Mild Rash Verified 04/11/23 13:42 Antibiotics) Penicillins Allergy Unknown SWELLING Verified 04/11/23 13:42 codeine AdvReac Mild N/V Verified 04/11/23 13:42 hydrocodone AdvReac Mild N/V Verified 04/11/23 13:42 tramadol AdvReac Mild Nausea Verified 04/11/23 13:42 Review of Systems Review of Systems: All systems reviewed & are unremarkable except as noted in HPI and below Constitutional: Constitutional: Reports no additional constitutional complaints Cardiovascular: Cardiovascular: Reports no additional cardiovascular complaints Respiratory: Respiratory: Reports no additional respiratory complaints Musculoskeletal: Musculoskeletal: Reports arthralgias, Reports joint swelling and Denies muscle cramps Integumentary/Breasts: Skin/Breast: Reports erythema, Denies rash and Denies skin ulcer PMFSH Past Medical History Medical History Atrial fibrillation Chronic acquired lymphedema Chronic anemia Chronic congestive heart failure Echocardiogram in May 2021 was technically difficult and showed normal LV systolic function with an EF of 60 to 65%, severely enlarged RV chamber with moderate to severely reduced RV systolic function, severe biatrial enlargement, and moderate pulmonary hypertension. Chronic kidney disease Chronic low back pain Chronic venous insufficiency CKD (chronic kidney disease) stage 3, GFR 30-59 ml/min Required temporary dialysis and spring 2021. Dyslipidemia Environmental allergies Essential (primary) hypertension GERD without esophagitis Hypothyroidism Lymphedema of both lower extremities Obstructive sleep apnea Ocular rosacea Peripheral polyneuropathy Rosacea Surgical History Surgical History H/O eye surgery (~2005) [id number] [facility] History of carpal tunnel release History of cholecystectomy (2008) History of discectomy (2012) History of foot surgery Left Foot History of rotator cuff surgery Bilateral. History of thoracic surgery Pericardial effusion s/p pericardial window thought secondary to minoxidil, in 2010 at [facility]. Family History Family History Father Cardiovascular disease Grandparent Cancer Mother COPD (chronic obstructive pulmonary disease) Father Family history of cardiovascular disease Grandparent Family history of malignant neoplasm Social History Social History Social History: Surrogate medical decision maker: Shyla Hurst, daughter. Code status: Full code. Smoking packs per day: 2 Smoking cigarettes per day: 40.0 Years smoked: 15 Smoking pack-years: 3
[2023-04-11 17:02] LABS: Uric Acid 11.6 mg/dL (3.5-8.5)
[2023-04-11] MEDS: SODIUM CHLORIDE 0.9% IV 1,000 ML 150 ML IV CONT (17:25)
--- NOTE | 2023-04-11 17:28 | PC.NURSE ---
called dietary and ordered a dinner tray for pt at this time
[2023-04-11] MEDS: IBUPROFEN 400 MG TABLET PO (17:37)
--- NOTE | 2023-04-11 20:16 | ADMGEN ---
This patient, Irwin Cyr Jr., was admitted to [facility] Surg Room 314-01. Patient/family oriented to hospital policies and general routines including ID bracelet, bed and alarms, visiting hours, pain management, procedures, bathroom and other care routines, personal items, smoking policy, room service/diet, and visiting hours. Information on how to activate the Rapid Response Team has been discussed. Patient/Family are encouraged to report perceived risks to care and to ask questions if they do not understand what they are told or what they should do.
[2023-04-12] VITALS (8 sets, daily range): BP systolic 105–137; BP diastolic 54–68; PULSE 100–107; RESP 13–20; TEMP 36.1–37.1; O2SAT 95–100
[2023-04-12] MEDS: HYDROcodone/acetaminophen (*CRX) 5-325 MG TABLET 1 TAB PO (00:14)
--- NOTE | 2023-04-12 03:06 | PM.IMHP ---
H&P: HPI History of Present Illness Date/Time: 04/11/23 1637 Chief Complaint: ?Patient is a 73-year-old male?with a PMHx of AFIB, CHF, CKD3 Chronic venous insufficiency, GERD HTN, who presented to the ED from home with a c/o right 2digit pain and swelling along with left wrist swelling and pain. Narrative: pt provides HPI Mr. Cyr is a 73-year old male,who reports worsening pain with left wrist and right second digit, he denies any recent injuries, pt states he lives alone and has been noticing increasing swelling, pain and tenderness, leaving him not able to transfer himself from his power chair, as well as limiting daily ADLs. He denies any fever, chills, n/v, chest pain or SOB. ED workup reveals:leukocytosis, 13.7, Hgb 13.1, ESR is 97,creatinine is 2.00, he has a hx of Scr of 2.8, joint aspiration attempted, in the ED, nephrology was consulted. Review of Systems Review of Systems: All systems reviewed & are unremarkable except as noted in HPI and below PMFSH Past Medical History Medical History Atrial fibrillation Chronic acquired lymphedema Chronic anemia Chronic congestive heart failure Echocardiogram in May 2021 was technically difficult and showed normal LV systolic function with an EF of 60 to 65%, severely enlarged RV chamber with moderate to severely reduced RV systolic function, severe biatrial enlargement, and moderate pulmonary hypertension. Chronic kidney disease Chronic low back pain Chronic venous insufficiency CKD (chronic kidney disease) stage 3, GFR 30-59 ml/min Required temporary dialysis and spring 2021. Dyslipidemia Environmental allergies Essential (primary) hypertension GERD without esophagitis Hypothyroidism Lymphedema of both lower extremities Obstructive sleep apnea Ocular rosacea Peripheral polyneuropathy Rosacea Surgical History Surgical History H/O eye surgery (~2005) [id number] [facility] History of carpal tunnel release History of cholecystectomy (2008) History of discectomy (2012) History of foot surgery Left Foot History of rotator cuff surgery Bilateral. History of thoracic surgery Pericardial effusion s/p pericardial window thought secondary to minoxidil, in 2010 at [facility]. Family History Family History Father Cardiovascular disease Grandparent Cancer Mother COPD (chronic obstructive pulmonary disease) Father Family history of cardiovascular disease Grandparent Family history of malignant neoplasm Social History Social History Social History: Surrogate medical decision maker: Shyla Hurst, daughter. Code status: Full code. Smoking packs per day: 2 Smoking cigarettes per day: 40.0 Years smoked: 15 Smoking pack-years: 30.00 Smoking status: Former smoker Second hand tobacco smoke exposure: No Additional smoking assessment comments: QUIT IN 1978 Alcohol intake: never Drinks per week: 14 Alcohol use details: One beer daily. Substance use: never Substance use type: does not use Do You Feel Safe in your Home?: Yes Lack of Transportation: No Lack of Food: Never True Current Housing: I Have Housing Concerned About Future Housing: No Difficulty Paying Gas/Electric Bills: No Difficulty Paying for Meds: No Currently Unemployed: No Education: High School Diploma/GED Difficulty w/ Childcare or Family Care: No Living arrangements: alone Additional living arrangements comments: Lives in own home in [place]. Uses a motorized scooter and transfers with slide board. Occupation/Education: retired Additional occupation/education comments: Retired. 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 Gender identity (if verbalized by the patient): Male Spirit[employer]
[2023-04-12] MEDS: oxyCODONE HCL (*CRX) 5 MG TAB IR PO ×2 (05:26→21:04)
[2023-04-12] MEDS: CYCLOBENZAPRINE HCL 10 MG TABLET PO ×3 (05:28→21:01)
[2023-04-12 06:49] LABS: Basophils Percent Auto 0.5 % (0.2-1.2); Eosinophils Absolute Auto 0.3 K/mm3 (0-0.3); Eosinophils Percent Auto 3.6 % (0-4.4); Hematocrit 36.2 % (42.0-52.0); Hemoglobin 11.4 g/dL (14.0-18.0); Immature Granulocyte Absolute 0.09 K/mm3 (0.00-0.031); Immature Granulocyte Percent A 1.1 % (0-0.5); Lymphocytes Percent Auto 6.4 % (18.3-44.2); Mean Corpuscular HGB Conc 31.5 g/dl (32-36); Mean Corpuscular Hemoglobin 30.2 pg (26-34); Mean Platelet Volume 10.8 fl (7.4-10.4); Monocytes Absolute Auto 0.8 K/mm3 (0.1-0.6); Monocytes Percent Auto 10.7 % (2.6-8.5); Neutrophils Absolute Auto 6.1 K/mm3 (1.3-6.7); Neutrophils Percent Auto 77.7 % (45.5-73.1); Platelet Count Result 273 k/mm3 (150-375); Red Blood Count 3.77 M/mm3 (4.6-6.20); Red Cell Distribution Width 12.9 % (11.5-14.5); White Blood Count 7.9 K/mm3 (4.5-10.0)
[2023-04-12 06:55] LABS: Alanine Aminotransferase 17 U/L (6-50); Albumin Level 3.8 g/dL (3.5-5.1); Alkaline Phosphatase 56 U/L (38-126); Anion Gap 13 mmol/L (8-16); Aspartate Amino Transferase 36 U/L (17-59); Bilirubin,Total 1.1 mg/dL (0.2-1.3); Blood Urea Nitrogen 47 mg/dL (9-20); Calcium 8.5 mg/dL (8.4-10.2); Carbon Dioxide 23 mmol/L (22-30); Chloride 100 mmol/L (98-107); Estimated CRCL calculation 49 ml/min; Estimated Glomerular Filt Rate 33; Glucose 116 mg/dL (65-110); Potassium 3.2 mmol/L (3.4-5.0); Sodium 136 mmol/L (137-145)
[2023-04-12] MEDS: LEVOTHYROXINE SODIUM 100 MCG TABLET 200 MCG PO (07:10)
--- NOTE | 2023-04-12 07:26 | PM.IMPN ---
Progress Note: A&P Assessment and Plan (1) Gout flare: Code(s): M10.9 - Gout, unspecified Status: Acute Assessment and Plan: 04/11/23: given the pt's hx with CKD , would like Nephrology consult appreciate recommendation and plan suspect gout flare from medication, OA, psoriatic arthritis -check CBC, CMP, esr in the a.m -reassess swelling and tenderness in the a.m. -continue pain management q 4 hrs. - total protein Synovial fluid was ordered but not collected by ED he was unable to aspirate joint -continue bumetanide -May use Ice therapy to affected areas QID for 20 mins 04/12/23: Continue with current treatment plan (2) Physical debility: Code(s): R53.81 - Other malaise Status: Acute Assessment and Plan: 04/11/23: -initiate care coordination, pt may need ongoing 24 hour care 04/12/23: Patient is wheelchair bound after a back surgery. PT and OT to see patient Care coordination for outpatient needs. (3) Gait abnormality: Code(s): R26.9 - Unspecified abnormalities of gait and mobility Status: Acute Assessment and Plan: 04/11/23: -initate fall precautions -PT/OT eval and treat 04/12/23: continue with above plan of care (4) Weakness: Code(s): R53.1 - Weakness Status: Acute Assessment and Plan: see above (5) Stage 3b chronic kidney disease: Code(s): N18.32 - Chronic kidney disease, stage 3b Status: Acute Assessment and Plan: 04/11/23: -Scr is elevated >2.0 hx of CKD -consult to nephrology 04/12/23: BUN 47, creatinine 2.0 Nephrology consulted (6) Morbid obesity with BMI of 50.0-59.9, adult: Code(s): E66.01 - Morbid (severe) obesity due to excess calories; Z68.43 - Body mass index [BMI] 50.0-59.9, adult Status: Acute Assessment and Plan: BMI 49.7, 171 kg (7) Venous stasis dermatitis of both lower extremities: Code(s): I87.2 - Venous insufficiency (chronic) (peripheral) Status: Acute Assessment and Plan: Patient has open ulceration on right foot that is weeping Wound consult placed. Time Spent With Patient Time with patient: 25 - 35 minutes Subjective Date/time seen: 04/12/23 07:26 Interval history: This is a 73 year old male who presented to the hospital with complaints of left wrist pain and swelling and 2 digit pain and swelling which has worsened over the last two days. Patient denies injury. Work up in the hospital includes Finger x-ray that shown polyarticular osteoarthritis, severe at the triscaphe joint, moderate at the first carpometacarpal and metacarpophalangeal joints. Wrist x-ray shown polyarticular osteoarthritis. Patient also had a joint aspiration under fluoroscopy guided left radiocarpal joint aspiration which yielded no fluid. Labs revealed WBC 13.7, ESR 97, Na+ 135, BUN 51, Creatinine 2.0, Uric acid level 11.6, C-reactive protein 13.6. On examination today patient is alert and oriented x4, lying in the bed. He denies any fever, chills, shortness of breath, chest pain, nausea, vomiting, diarrhea, abdominal pain. His right hand, 1st digit is swollen and red. He reports decreased ROM in both wrists and trouble with transferring to and from his wheelchair. Labs today reveal WBC 7.9, Na+ 136, K+ 3.2, BUN 47, Creatinine 2.0. Review of Systems Review of Systems: All systems reviewed & are unremarkable except as noted in HPI and below Constitutional: Constitutional: Reports as per HPI and Reports no additional constitutional complaints Eyes: Eyes: Reports as per HPI and Reports no additional eye complaints ENT: Reports system reviewed and no additional complaints, except as documented and Reports as per HPI Cardiovascular: Cardiovascular: Reports as per HPI and Reports no additional cardiovascular complaints Respiratory: Respiratory: Reports as per HPI and Reports no additional respiratory complaints Gastrointestinal: Gastrointestinal
[2023-04-12 08:36] LABS: Uric Acid 11.1 mg/dL (3.5-8.5)
[2023-04-12 08:44] LABS: CRP 12.3 mg/dL (<1.0)
[2023-04-12] MEDS: TAMSULOSIN HCL 0.4 MG CAPSULE PO (08:48)
[2023-04-12] MEDS: METOPROLOL TARTRATE 50 MG TAB PO ×2 (08:48→21:01)
[2023-04-12] MEDS: GABAPENTIN 300 MG CAPSULE PO ×3 (08:48→16:57)
[2023-04-12] MEDS: acetaZOLAMIDE TAB 250 MG TABLET PO (08:48)
[2023-04-12] MEDS: FAMOTIDINE 20 MG TABLET PO ×2 (08:49→21:01)
[2023-04-12] MEDS: POTASSIUM CHLORIDE 20 MEQ ER TABLET 40 MEQ PO ×3 (08:49→16:57)
[2023-04-12] MEDS: minoxidiL 10 MG TABLET PO (08:49)
[2023-04-12] MEDS: APIXABAN 5 MG TABLET PO ×2 (08:49→21:00)
[2023-04-12] MEDS: BUMETANIDE 1 MG TABLET 3 MG PO ×3 (08:49→16:57)
[2023-04-12] MEDS: LORATADINE 10 MG TABLET PO (08:50)
[2023-04-12] MEDS: SPIRONOLACTONE 25 MG TABLET PO (08:50)
[2023-04-12 09:06] LABS: Erythrocyte Sedimentation Rate 89 mm/hr (0-20)
[2023-04-12] MEDS: LACTIC ACID 12% LOTION 225 BTL 1 APPLIC TOPICAL (09:42)
[2023-04-12] MEDS: MUPIROCIN 2% OINT 22 GM TUBE 1 APPLIC TOPICAL ×2 (09:42→16:57)
--- NOTE | 2023-04-12 10:53 | PM.CNNEP ---
Assessment and Plan Assessment and plan (1) CKD (chronic kidney disease) stage 3, GFR 30-59 ml/min: Qualifiers: Chronic kidney disease stage 3 subtype: stage 3b (GFR 30-44) Qualified Code(s): N18.32 - Chronic kidney disease, stage 3b Code(s): N18.3 - Chronic kidney disease, stage 3 (moderate) Status: Acute Assessment and Plan: The patient has chronic kidney disease. This is likely related to his hypertension and also chronic pre renal to his swelling and the need for diuretics. His creatinine is stable. (2) Edema: Code(s): R60.9 - Edema, unspecified Status: Acute Assessment and Plan: The patient has significant edema. He is on diuretics for this. This is probably due to his sleep appy but he is also on minoxidil. His blood pressure is under really good control so I think will reduce the minoxidil to5mg per day and see if we can get him off this. (3) Gout: Code(s): M10.9 - Gout, unspecified Status: Acute Assessment and Plan: The patient has a uric acid of 11.1 and features in his joints that are consistent with gout. He cannot get indomethacin because of his chronic kidney disease. Steroids might be risky in case this is infection but he does not seem infected to me. He has no fevers and his white count is oka; however he is just coming off of a significant right lower extremity infection. Will let hospital deal with whether this is infection or not. I think that colchicine might be a reasonable option here. Give him a couple of doses today and then 1 a day, the dose adjusted for his renal disease. Long-term use of colchicine might affect his kidneys so I do not want to do however once the gout is under better control we can start allopurinol or Uloric. (4) AMELIA (obstructive sleep apnea): Code(s): G47.33 - Obstructive sleep apnea (adult) (pediatric) Status: Acute (5) Chronic congestive heart failure: Qualifiers: Heart failure type: unspecified Qualified Code(s): I50.9 - Heart failure, unspecified Code(s): I50.9 - Heart failure, unspecified Status: Acute Assessment and Plan: This is mostly right-sided heart failure probably due to the sleep apnea. He does have grade 1 diastolic dysfunction however. The EF is good (6) Atrial fibrillation: Qualifiers: Atrial fibrillation type: longstanding persistent Qualified Code(s): I48.11 - Longstanding persistent atrial fibrillation Code(s): I48.91 - Unspecified atrial fibrillation Status: Acute Assessment and Plan: Heart rate is mildly high possibly related to the pain. History of Present Illness Reason for Consult Consult date: 04/12/23 Chief Complaint Chief complaint: Gout,Physical Debility History of Present Illness Narrative: Irwin is a very pleasant 73-year-old gentleman who has multiple medical problems including chronic kidney disease with a baseline creatinine of 3, hypertension, GERD, atrial fibrillation, congestive heart failure. The patient was recently in the hospital with a right foot infection. To rehab he did better and he was discharged on April 07. He says that on Saturday he started getting right finger and left wrist pain. This continued to worsen as the week went on. He called his primary care doctor and had an appointment but could not wait to the appointment because his pain was so uncomfortable. He says that the finger on the right hand and the wrist and the left were both swollen and red and bruised. He has not had any fevers. No chills. He was evaluated in the emergency room. He was felt to have either the gout or infection. An aspiration of the wrist was attempted however it was a dry tap and they got no fluid. He has never had gout before. He was admitted and continued on the same medications. He was given a dose of ibuprofen as well as Tylenol and oxycodone. He was given a dose of morphine in the ER
[2023-04-12] MEDS: COLCHICINE 0.6 MG TABLET PO ×2 (12:02→17:54)
[2023-04-12] MEDS: ACETAMINOPHEN 500 MG TABLET 1000 MG PO ×2 (12:03→21:04)
--- NOTE | 2023-04-12 22:12 | PC.NURSE ---
called respiratory to set up patients home cpap machine
--- NOTE | 2023-04-12 22:20 | PC.NURSE ---
informed by respiratory therapist that maintenance needs to verify home cpap safe first prior to using, at this time patient does not wish to use hospital cpap, awaiting home cpap to get verified prior to having respiratory therapist set up home cpap, [employer] informed of situation.
[2023-04-13 02:27] VITALS: PULSE 97; O2SAT 96
[2023-04-13 05:22] VITALS: BP 114/74; PULSE 71; RESP 12; TEMP 36.3; O2SAT 96
[2023-04-13] MEDS: ACETAMINOPHEN 500 MG TABLET 1000 MG PO ×2 (05:24→21:01)
[2023-04-13] MEDS: oxyCODONE HCL (*CRX) 5 MG TAB IR PO ×2 (05:24→21:01)
[2023-04-13] MEDS: CYCLOBENZAPRINE HCL 10 MG TABLET PO ×3 (05:24→21:01)
[2023-04-13] MEDS: LEVOTHYROXINE SODIUM 100 MCG TABLET 200 MCG PO (05:24)
[2023-04-13 06:48] LABS: Basophils Absolute Auto 0.1 K/mm3 (0.0-0.1); Basophils Percent Auto 0.6 % (0.2-1.2); Eosinophils Absolute Auto 0.3 K/mm3 (0-0.3); Eosinophils Percent Auto 3.8 % (0-4.4); Hematocrit 34.7 % (42.0-52.0); Hemoglobin 10.9 g/dL (14.0-18.0); Immature Granulocyte Absolute 0.09 K/mm3 (0.00-0.031); Immature Platelet Fraction Pct 5.9 % (0.9-11.2); Lymphocytes Absolute Auto 0.68 K/mm3 (0.9-3.2); Lymphocytes Percent Auto 7.5 % (18.3-44.2); Mean Corpuscular HGB Conc 31.4 g/dl (32-36); Mean Corpuscular Hemoglobin 30.7 pg (26-34); Mean Corpuscular Volume 97.7 fl (80-100); Mean Platelet Volume 11.6 fl (7.4-10.4); Monocytes Absolute Auto 1.1 K/mm3 (0.1-0.6); Monocytes Percent Auto 12.2 % (2.6-8.5); Neutrophils Absolute Auto 6.8 K/mm3 (1.3-6.7); Neutrophils Percent Auto 74.9 % (45.5-73.1); Platelet Count Result 290 k/mm3 (150-375); Red Blood Count 3.55 M/mm3 (4.6-6.20); Red Cell Distribution Width 12.8 % (11.5-14.5)
[2023-04-13 07:14] LABS: Alanine Aminotransferase 16 U/L (6-50); Albumin Level 3.7 g/dL (3.5-5.1); Alkaline Phosphatase 58 U/L (38-126); Anion Gap 9 mmol/L (8-16); Aspartate Amino Transferase 36 U/L (17-59); Bilirubin,Total 0.8 mg/dL (0.2-1.3); Blood Urea Nitrogen 43 mg/dL (9-20); Calcium 8.6 mg/dL (8.4-10.2); Carbon Dioxide 24 mmol/L (22-30); Chloride 102 mmol/L (98-107); Estimated CRCL calculation 49 ml/min; Estimated Glomerular Filt Rate 33; Glucose 111 mg/dL (65-110); Potassium 4.2 mmol/L (3.4-5.0); Sodium 135 mmol/L (137-145)
[2023-04-13] MEDS: acetaZOLAMIDE TAB 250 MG TABLET PO (07:54)
[2023-04-13] MEDS: COLCHICINE 0.6 MG TABLET PO (07:54)
[2023-04-13] MEDS: METOPROLOL TARTRATE 50 MG TAB PO ×2 (07:54→20:27)
[2023-04-13] MEDS: SPIRONOLACTONE 25 MG TABLET PO (07:54)
[2023-04-13] MEDS: FAMOTIDINE 20 MG TABLET PO ×2 (07:54→20:27)
[2023-04-13] MEDS: POTASSIUM CHLORIDE 20 MEQ ER TABLET 40 MEQ PO ×3 (07:54→16:24)
[2023-04-13] MEDS: BUMETANIDE 1 MG TABLET 3 MG PO ×3 (07:54→16:24)
[2023-04-13] MEDS: LORATADINE 10 MG TABLET PO (07:54)
[2023-04-13] MEDS: minoxidiL 10 MG TABLET PO (07:54)
[2023-04-13] MEDS: TAMSULOSIN HCL 0.4 MG CAPSULE PO (07:54)
[2023-04-13] MEDS: APIXABAN 5 MG TABLET PO ×2 (07:54→20:27)
[2023-04-13] MEDS: MUPIROCIN 2% OINT 22 GM TUBE 1 APPLIC TOPICAL ×2 (07:55→16:23)
[2023-04-13] MEDS: LACTIC ACID 12% LOTION 225 BTL 1 APPLIC TOPICAL (07:55)
[2023-04-13] MEDS: GABAPENTIN 300 MG CAPSULE PO ×3 (07:55→16:24)
--- NOTE | 2023-04-13 08:04 | P.PNIM_ITS ---
Progress Note: A&P Assessment and Plan (1) Gout flare: Code(s): M10.9 - Gout, unspecified Status: Acute Assessment and Plan: 04/11/23: * given the pt's hx with CKD , would like Nephrology consult appreciate recom mendation and plan * suspect gout flare from medication, OA, psoriatic arthritis * -check CBC, CMP, esr in the a.m * -reassess swelling and tenderness in the a.m. * -continue pain management q 4 hrs. * - total protein Synovial fluid was ordered but not collected by ED he was unable to aspirate joint * -continue bumetanide * -May use Ice therapy to affected areas QID for 20 mins 04/12/23: * Continue with current treatment plan 04/13/23: * Uric acid level 10.6, CRP 8.0 * Continue with current treatment plan (2) Physical debility: Code(s): R53.81 - Other malaise Status: Acute Assessment and Plan: 04/11/23: * -initiate care coordination, pt may need ongoing 24 hour care 04/12/23: * Patient is wheelchair bound after a back surgery. * PT and OT to see patient * Care coordination for outpatient needs. 04/13/23: * continue with current treatment plan (3) Gait abnormality: Code(s): R26.9 - Unspecified abnormalities of gait and mobility Status: Acute Assessment and Plan: 04/11/23: * -initate fall precautions * -PT/OT eval and treat 04/12/23: * continue with above plan of care 04/13/23: * Continue with current treatment plan (4) Weakness: Code(s): R53.1 - Weakness Status: Acute Assessment and Plan: see above (5) Stage 3b chronic kidney disease: Code(s): N18.32 - Chronic kidney disease, stage 3b Status: Acute Assessment and Plan: 04/11/23: * -Scr is elevated >2.0 hx of CKD * -consult to nephrology 04/12/23: * BUN 47, creatinine 2.0 * Nephrology consulted 04/13/23: * BUN 43/Creatinine 2.0 * nephrology following * Nephrology recommending switching to Allopurinol or Uloric after his gout is under better control as the colchicine can affect the kidneys negatively. If needing steroids or anti-inflammatory medications there is high risk of nega tive outcomes for the kidneys. * Continue Bumex for now. Elevated Creatinine is likely due to use of diuretics and his chronic hypertension per Nephrology standpoint. (6) Venous stasis dermatitis of both lower extremities: Code(s): I87.2 - Venous insufficiency (chronic) (peripheral) Status: Acute Assessment and Plan: 04/12/23: * Patient has open ulceration on right foot that is weeping * Wound consult placed. 04/13/23: * Continue wound care (7) Morbid obesity with BMI of 50.0-59.9, adult: Code(s): E66.01 - Morbid (severe) obesity due to excess calories; Z68.43 - Body mass inde x [BMI] 50.0-59.9, adult Status: Acute Assessment and Plan: BMI 49.7, 171 kg Time Spent With Patient Time with patient: 25 - 35 minutes Subjective Date/time seen: 04/13/23 08:04 Interval history: 04/12/23: This is a 73 year old male who presented to the hospital with complaints of left wrist pain and swelling and 2 digit pain and swelling which has worsened over the last two days. Patient denies injury. Work up in the hospital includes Finger x-ray that shown polyarticular osteoarthritis, severe at the triscaphe joint, moderate at the first carpometacarpal and metacarpophalangeal joints. Wrist x-ray shown polyarticular osteoarthritis. Patient also had a joint aspiration under fluoroscopy guided left radiocarpa
--- NOTE | 2023-04-13 08:04 | PM.IMPN ---
Progress Note: A&P Assessment and Plan (1) Gout flare: Code(s): M10.9 - Gout, unspecified Status: Acute Assessment and Plan: 04/11/23: given the pt's hx with CKD , would like Nephrology consult appreciate recommendation and plan suspect gout flare from medication, OA, psoriatic arthritis -check CBC, CMP, esr in the a.m -reassess swelling and tenderness in the a.m. -continue pain management q 4 hrs. - total protein Synovial fluid was ordered but not collected by ED he was unable to aspirate joint -continue bumetanide -May use Ice therapy to affected areas QID for 20 mins 04/12/23: Continue with current treatment plan 04/13/23: Uric acid level 10.6, CRP 8.0 Continue with current treatment plan (2) Physical debility: Code(s): R53.81 - Other malaise Status: Acute Assessment and Plan: 04/11/23: -initiate care coordination, pt may need ongoing 24 hour care 04/12/23: Patient is wheelchair bound after a back surgery. PT and OT to see patient Care coordination for outpatient needs. 04/13/23: continue with current treatment plan (3) Gait abnormality: Code(s): R26.9 - Unspecified abnormalities of gait and mobility Status: Acute Assessment and Plan: 04/11/23: -initate fall precautions -PT/OT eval and treat 04/12/23: continue with above plan of care 04/13/23: Continue with current treatment plan (4) Weakness: Code(s): R53.1 - Weakness Status: Acute Assessment and Plan: see above (5) Stage 3b chronic kidney disease: Code(s): N18.32 - Chronic kidney disease, stage 3b Status: Acute Assessment and Plan: 04/11/23: -Scr is elevated >2.0 hx of CKD -consult to nephrology 04/12/23: BUN 47, creatinine 2.0 Nephrology consulted 04/13/23: BUN 43/Creatinine 2.0 nephrology following Nephrology recommending switching to Allopurinol or Uloric after his gout is under better control as the colchicine can affect the kidneys negatively. If needing steroids or anti-inflammatory medications there is high risk of negative outcomes for the kidneys. Continue Bumex for now. Elevated Creatinine is likely due to use of diuretics and his chronic hypertension per Nephrology standpoint. (6) Venous stasis dermatitis of both lower extremities: Code(s): I87.2 - Venous insufficiency (chronic) (peripheral) Status: Acute Assessment and Plan: 04/12/23: Patient has open ulceration on right foot that is weeping Wound consult placed. 04/13/23: Continue wound care (7) Morbid obesity with BMI of 50.0-59.9, adult: Code(s): E66.01 - Morbid (severe) obesity due to excess calories; Z68.43 - Body mass index [BMI] 50.0-59.9, adult Status: Acute Assessment and Plan: BMI 49.7, 171 kg Time Spent With Patient Time with patient: 25 - 35 minutes Subjective Date/time seen: 04/13/23 08:04 Interval history: 04/12/23: This is a 73 year old male who presented to the hospital with complaints of left wrist pain and swelling and 2 digit pain and swelling which has worsened over the last two days. Patient denies injury. Work up in the hospital includes Finger x-ray that shown polyarticular osteoarthritis, severe at the triscaphe joint, moderate at the first carpometacarpal and metacarpophalangeal joints. Wrist x-ray shown polyarticular osteoarthritis. Patient also had a joint aspiration under fluoroscopy guided left radiocarpal joint aspiration which yielded no fluid. Labs revealed WBC 13.7, ESR 97, Na+ 135, BUN 51, Creatinine 2.0, Uric acid level 11.6, C-reactive protein 13.6. On examination today patient is alert and oriented x4, lying in the bed. He denies any fever, chills, shortness of breath, chest pain, nausea, vomiting, diarrhea, abdominal pain. His right hand, 1st digit is swollen and red. He reports decreased ROM in both wrists and trouble with transferring to and from his wheelchair. Labs today r
[2023-04-13 08:22] LABS: Uric Acid 10.6 mg/dL (3.5-8.5)
[2023-04-13 14:00] VITALS: BP 123/74; PULSE 104; RESP 20; TEMP 36.6; O2SAT 100
[2023-04-13 19:38] VITALS: O2SAT 100
[2023-04-13 20:27] VITALS: PULSE 101
[2023-04-13 21:57] VITALS: BP 132/63; PULSE 103; RESP 12; TEMP 36.9; O2SAT 97
[2023-04-14] VITALS (7 sets, daily range): BP systolic 102–135; BP diastolic 58–67; PULSE 60–109; RESP 12–18; TEMP 36.1–36.3; O2SAT 97–100
[2023-04-14] MEDS: LEVOTHYROXINE SODIUM 100 MCG TABLET 200 MCG PO (05:13)
[2023-04-14] MEDS: CYCLOBENZAPRINE HCL 10 MG TABLET PO ×3 (05:13→20:55)
[2023-04-14] MEDS: oxyCODONE HCL (*CRX) 5 MG TAB IR PO ×2 (05:16→20:54)
[2023-04-14] MEDS: ACETAMINOPHEN 500 MG TABLET 1000 MG PO (05:16)
[2023-04-14 06:17] LABS: Basophils Absolute Auto 0.1 K/mm3 (0.0-0.1); Basophils Percent Auto 0.8 % (0.2-1.2); Eosinophils Absolute Auto 0.4 K/mm3 (0-0.3); Eosinophils Percent Auto 4.6 % (0-4.4); Hematocrit 35.9 % (42.0-52.0); Hemoglobin 11.3 g/dL (14.0-18.0); Immature Granulocyte Percent A 1.3 % (0-0.5); Lymphocytes Absolute Auto 0.74 K/mm3 (0.9-3.2); Lymphocytes Percent Auto 9.6 % (18.3-44.2); Mean Corpuscular HGB Conc 31.5 g/dl (32-36); Mean Corpuscular Hemoglobin 30.3 pg (26-34); Mean Corpuscular Volume 96.2 fl (80-100); Mean Platelet Volume 10.5 fl (7.4-10.4); Monocytes Percent Auto 12.4 % (2.6-8.5); Neutrophils Absolute Auto 5.5 K/mm3 (1.3-6.7); Neutrophils Percent Auto 71.3 % (45.5-73.1); Platelet Count Result 295 k/mm3 (150-375); Red Blood Count 3.73 M/mm3 (4.6-6.20); Red Cell Distribution Width 12.7 % (11.5-14.5); White Blood Count 7.7 K/mm3 (4.5-10.0)
[2023-04-14 06:43] LABS: Alanine Aminotransferase 15 U/L (6-50); Albumin Level 3.7 g/dL (3.5-5.1); Alkaline Phosphatase 60 U/L (38-126); Anion Gap 8 mmol/L (8-16); Aspartate Amino Transferase 28 U/L (17-59); Bilirubin,Total 0.7 mg/dL (0.2-1.3); Blood Urea Nitrogen 37 mg/dL (9-20); CRP 5.5 mg/dL (<1.0); Calcium 8.6 mg/dL (8.4-10.2); Carbon Dioxide 28 mmol/L (22-30); Chloride 101 mmol/L (98-107); Estimated CRCL calculation 46 ml/min; Estimated Glomerular Filt Rate 31; Glucose 110 mg/dL (65-110); Potassium 4.2 mmol/L (3.4-5.0); Sodium 137 mmol/L (137-145); Uric Acid 10.6 mg/dL (3.5-8.5)
[2023-04-14] MEDS: BUMETANIDE 1 MG TABLET 3 MG PO ×3 (08:25→16:23)
[2023-04-14] MEDS: POTASSIUM CHLORIDE 20 MEQ ER TABLET 40 MEQ PO ×3 (08:25→16:23)
[2023-04-14] MEDS: METOPROLOL TARTRATE 50 MG TAB PO ×2 (08:25→20:55)
[2023-04-14] MEDS: COLCHICINE 0.6 MG TABLET PO (08:27)
[2023-04-14] MEDS: SPIRONOLACTONE 25 MG TABLET PO (08:27)
[2023-04-14] MEDS: acetaZOLAMIDE TAB 250 MG TABLET PO (08:27)
[2023-04-14] MEDS: FAMOTIDINE 20 MG TABLET PO ×2 (08:27→20:55)
[2023-04-14] MEDS: minoxidiL 10 MG TABLET PO (08:27)
[2023-04-14] MEDS: LORATADINE 10 MG TABLET PO (08:27)
[2023-04-14] MEDS: GABAPENTIN 300 MG CAPSULE PO ×3 (08:27→16:23)
[2023-04-14] MEDS: TAMSULOSIN HCL 0.4 MG CAPSULE PO (08:27)
[2023-04-14] MEDS: APIXABAN 5 MG TABLET PO ×2 (08:27→20:55)
--- NOTE | 2023-04-14 09:04 | P.PNIM_ITS ---
Progress Note: A&P Assessment and Plan (1) Gout flare: Code(s): M10.9 - Gout, unspecified Status: Acute Assessment and Plan: 04/11/23: * given the pt's hx with CKD , would like Nephrology consult appreciate recom mendation and plan * suspect gout flare from medication, OA, psoriatic arthritis * -check CBC, CMP, esr in the a.m * -reassess swelling and tenderness in the a.m. * -continue pain management q 4 hrs. * - total protein Synovial fluid was ordered but not collected by ED he was unable to aspirate joint * -continue bumetanide * -May use Ice therapy to affected areas QID for 20 mins 04/12/23: * Continue with current treatment plan 04/13/23: * Uric acid level 10.6, CRP 8.0 * Continue with current treatment plan 04/14/23: * Uric acid level 10.6, CRP 5.5 * Continue with current treatment plan * Once uric acid levels are normalizing we will switch patient to allopurinol per nephrology recommendation (2) Physical debility: Code(s): R53.81 - Other malaise Status: Acute Assessment and Plan: 04/11/23: * -initiate care coordination, pt may need ongoing 24 hour care 04/12/23: * Patient is wheelchair bound after a back surgery. * PT and OT to see patient * Care coordination for outpatient needs. 04/13/23: * continue with current treatment plan 04/14/23: * No change to current treatment plan (3) Gait abnormality: Code(s): R26.9 - Unspecified abnormalities of gait and mobility Status: Acute Assessment and Plan: 04/11/23: * -initate fall precautions * -PT/OT eval and treat 04/12/23: * continue with above plan of care 04/13/23: * Continue with current treatment plan 04/14/23: * Continue with PT and OT * Care coordination working on SNF placement (4) Weakness: Code(s): R53.1 - Weakness Status: Acute Assessment and Plan: see above (5) Stage 3b chronic kidney disease: Code(s): N18.32 - Chronic kidney disease, stage 3b Status: Acute Assessment and Plan: 04/11/23: * -Scr is elevated >2.0 hx of CKD * -consult to nephrology 04/12/23: * BUN 47, creatinine 2.0 * Nephrology consulted 04/13/23: * BUN 43/Creatinine 2.0 * nephrology following * Nephrology recommending switching to Allopurinol or Uloric after his gout is under better control as the colchicine can affect the kidneys negatively. If needing steroids or anti-inflammatory medications there is high risk of negative outcomes for the kidneys. * Continue Bumex for now. Elevated Creatinine is likely due to use of diuretics and his chronic hypertension per Nephrology standpoint. 04/14/23: * BUN 37, Creatinine 2.10 * Nephrology following * Continue to trend labs. (6) Venous stasis dermatitis of both lower extremities: Code(s): I87.2 - Venous insufficiency (chronic) (peripheral) Status: Acute Assessment and Plan: 04/12/23: * Patient has open ulceration on right foot that is weeping * Wound consult placed. 04/13/23: * Continue wound care 04/14/23: * No change to current treatment plan (7) Morbid obesity with BMI of 50.0-59.9, adult: Code(s): E66.01 - Morbid (severe) obesity due to excess calories; Z68.43 - Body mass index [BMI] 50.0-59.9, adult Status: Acute Assessment and Plan: BMI 49.7, 171 kg Time Spent With Patient Time with patient: 25 - 35 minutes Subjective Date/time seen: 04/14/23 09:04 Interval history:
--- NOTE | 2023-04-14 09:04 | PM.IMPN ---
Progress Note: A&P Assessment and Plan (1) Gout flare: Code(s): M10.9 - Gout, unspecified Status: Acute Assessment and Plan: 04/11/23: given the pt's hx with CKD , would like Nephrology consult appreciate recommendation and plan suspect gout flare from medication, OA, psoriatic arthritis -check CBC, CMP, esr in the a.m -reassess swelling and tenderness in the a.m. -continue pain management q 4 hrs. - total protein Synovial fluid was ordered but not collected by ED he was unable to aspirate joint -continue bumetanide -May use Ice therapy to affected areas QID for 20 mins 04/12/23: Continue with current treatment plan 04/13/23: Uric acid level 10.6, CRP 8.0 Continue with current treatment plan 04/14/23: Uric acid level 10.6, CRP 5.5 Continue with current treatment plan Once uric acid levels are normalizing we will switch patient to allopurinol per nephrology recommendation (2) Physical debility: Code(s): R53.81 - Other malaise Status: Acute Assessment and Plan: 04/11/23: -initiate care coordination, pt may need ongoing 24 hour care 04/12/23: Patient is wheelchair bound after a back surgery. PT and OT to see patient Care coordination for outpatient needs. 04/13/23: continue with current treatment plan 04/14/23: No change to current treatment plan (3) Gait abnormality: Code(s): R26.9 - Unspecified abnormalities of gait and mobility Status: Acute Assessment and Plan: 04/11/23: -initate fall precautions -PT/OT eval and treat 04/12/23: continue with above plan of care 04/13/23: Continue with current treatment plan 04/14/23: Continue with PT and OT Care coordination working on SNF placement (4) Weakness: Code(s): R53.1 - Weakness Status: Acute Assessment and Plan: see above (5) Stage 3b chronic kidney disease: Code(s): N18.32 - Chronic kidney disease, stage 3b Status: Acute Assessment and Plan: 04/11/23: -Scr is elevated >2.0 hx of CKD -consult to nephrology 04/12/23: BUN 47, creatinine 2.0 Nephrology consulted 04/13/23: BUN 43/Creatinine 2.0 nephrology following Nephrology recommending switching to Allopurinol or Uloric after his gout is under better control as the colchicine can affect the kidneys negatively. If needing steroids or anti-inflammatory medications there is high risk of negative outcomes for the kidneys. Continue Bumex for now. Elevated Creatinine is likely due to use of diuretics and his chronic hypertension per Nephrology standpoint. 04/14/23: BUN 37, Creatinine 2.10 Nephrology following Continue to trend labs. (6) Venous stasis dermatitis of both lower extremities: Code(s): I87.2 - Venous insufficiency (chronic) (peripheral) Status: Acute Assessment and Plan: 04/12/23: Patient has open ulceration on right foot that is weeping Wound consult placed. 04/13/23: Continue wound care 04/14/23: No change to current treatment plan (7) Morbid obesity with BMI of 50.0-59.9, adult: Code(s): E66.01 - Morbid (severe) obesity due to excess calories; Z68.43 - Body mass index [BMI] 50.0-59.9, adult Status: Acute Assessment and Plan: BMI 49.7, 171 kg Time Spent With Patient Time with patient: 25 - 35 minutes Subjective Date/time seen: 04/14/23 09:04 Interval history: 04/12/23: This is a 73 year old male who presented to the hospital with complaints of left wrist pain and swelling and 2 digit pain and swelling which has worsened over the last two days. Patient denies injury. Work up in the hospital includes Finger x-ray that shown polyarticular osteoarthritis, severe at the triscaphe joint, moderate at the first carpometacarpal and metacarpophalangeal joints. Wrist x-ray shown polyarticular osteoarthritis. Patient also had a joint aspiration under fluoroscopy guided left radiocarpal joint aspiration which yielded no
--- NOTE | 2023-04-14 09:08 | PM.PNNEP ---
Progress Note: A&P Assessment and Plan (1) CKD (chronic kidney disease) stage 3, GFR 30-59 ml/min: Qualifiers: Chronic kidney disease stage 3 subtype: stage 3b (GFR 30-44) Qualified Code(s): N18.32 - Chronic kidney disease, stage 3b Code(s): N18.3 - Chronic kidney disease, stage 3 (moderate) Status: Acute Assessment and Plan: The patient has chronic kidney disease. This is likely related to his hypertension and also chronic pre renal to his swelling and the need for diuretics. His creatinine is stable. unfortunately, with his swelling, he will need to continue the Bumex. So will start allopurinol tomorrow morning to prevent the gout from happening again. (2) Edema: Code(s): R60.9 - Edema, unspecified Status: Acute Assessment and Plan: The patient has significant edema. He is on diuretics for this. This is probably due to his sleep apnea but he is also on minoxidil. will reduce minoxidil to5mg. May be he will not need as much diuretics (3) Gout: Code(s): M10.9 - Gout, unspecified Status: Acute Assessment and Plan: The patient has a uric acid of 11.1 and features in his joints that are consistent with gout. He cannot get indomethacin because of his chronic kidney disease. his gout is better with the low-dose colchicine. Will start allopurinol tomorrow (4) AMELIA (obstructive sleep apnea): Code(s): G47.33 - Obstructive sleep apnea (adult) (pediatric) Status: Acute (5) Chronic congestive heart failure: Qualifiers: Heart failure type: unspecified Qualified Code(s): I50.9 - Heart failure, unspecified Code(s): I50.9 - Heart failure, unspecified Status: Acute Assessment and Plan: This is mostly right-sided heart failure probably due to the sleep apnea. He does have grade 1 diastolic dysfunction however. The EF is good (6) Atrial fibrillation: Qualifiers: Atrial fibrillation type: longstanding persistent Qualified Code(s): I48.11 - Longstanding persistent atrial fibrillation Code(s): I48.91 - Unspecified atrial fibrillation Status: Acute Assessment and Plan: Heart rate is better since the pain is better Subjective Date/time seen: 04/14/23 09:08 Interval history: alert. Finger and wrist are better today. Review of Systems Cardiovascular: Cardiovascular: Reports no additional cardiovascular complaints Respiratory: Respiratory: Reports no additional respiratory complaints Gastrointestinal: Gastrointestinal: Reports no additional gastrointestinal complaints Genitourinary: Genitourinary: Reports no additional male genitourinary complaints Exam Narrative: WDWN in NAD skin no rash head ncat lungs clear cor reg no rub abd BS+ nontender and soft ext no edema. Finger still swollen but a little bit less so. Both wrist and finger have some bruising Objective Data Vital Signs Vital Signs: Vital Signs - 24 hr 04/13/23 14:00 04/13/23 19:38 04/13/23 20:27 Temperature 97.9 F Pulse Rate 104 H 101 H Respiratory Rate 20 Blood Pressure 123/74 Pulse Oximetry 100 100 Oxygen Delivery Room Air 04/13/23 21:57 04/14/23 05:38 04/14/23 05:49 Temperature 98.5 F 96.9 F L 96.9 F L Pulse Rate 103 H 60 Respiratory Rate 12 12 Blood Pressure 132/63 102/58 L Pulse Oximetry 97 97 Oxygen Delivery 04/14/23 05:49 04/14/23 08:25 Temperature 96.9 F L Pulse Rate 70 Respiratory Rate Blood Pressure Pulse Oximetry Oxygen Delivery Intake/Output Intake/Output: Intake & Output 04/11/23 04/12/23 04/13/23 04/14/23 23:59 23:59 23:59 23:59 Intake Total 4577 2652 750 Output Total 2615 2630 1400 Balance 1962 22 -650 Meds/Results Medications: Active Medications Generic Name Dose Route Start Last Admin Trade Name Alanis PRN Reason Stop Dose Admin Acetaminophen 1,000 mg 04/12/23 00:03 04/14/23 05:16 Acet
--- NOTE | 2023-04-14 10:51 | PCOTNOTE ---
Attempted to see patient for OT evaluation. Patient reports he's still in a lot of pain and declines attempting any activity out of bed. Will continue to attempt.
[2023-04-14] MEDS: MUPIROCIN 2% OINT 22 GM TUBE 1 APPLIC TOPICAL ×2 (12:32→16:25)
[2023-04-14] MEDS: LACTIC ACID 12% LOTION 225 BTL 1 APPLIC TOPICAL (12:32)
[2023-04-14] MEDS: polyethylene glycoL 3350 17 GM POWD.PACK PO (18:53)
[2023-04-15] MEDS: LEVOTHYROXINE SODIUM 100 MCG TABLET 200 MCG PO (05:55)
[2023-04-15] MEDS: CYCLOBENZAPRINE HCL 10 MG TABLET PO ×2 (05:56→13:12)
[2023-04-15 06:00] VITALS: BP 113/66; PULSE 85; RESP 18; TEMP 36.3; O2SAT 99
[2023-04-15 06:25] LABS: Basophils Absolute Auto 0.1 K/mm3 (0.0-0.1); Basophils Percent Auto 0.9 % (0.2-1.2); Eosinophils Absolute Auto 0.5 K/mm3 (0-0.3); Eosinophils Percent Auto 5.3 % (0-4.4); Hematocrit 39.6 % (42.0-52.0); Hemoglobin 12.2 g/dL (14.0-18.0); Immature Granulocyte Absolute 0.09 K/mm3 (0.00-0.031); Lymphocytes Percent Auto 7.8 % (18.3-44.2); Mean Corpuscular HGB Conc 30.8 g/dl (32-36); Mean Corpuscular Hemoglobin 29.9 pg (26-34); Mean Corpuscular Volume 97.1 fl (80-100); Mean Platelet Volume 10.1 fl (7.4-10.4); Monocytes Absolute Auto 0.8 K/mm3 (0.1-0.6); Monocytes Percent Auto 8.7 % (2.6-8.5); Neutrophils Absolute Auto 6.9 K/mm3 (1.3-6.7); Neutrophils Percent Auto 76.3 % (45.5-73.1); Platelet Count Result 329 k/mm3 (150-375); Red Blood Count 4.08 M/mm3 (4.6-6.20); Red Cell Distribution Width 12.9 % (11.5-14.5)
[2023-04-15 06:47] LABS: Alanine Aminotransferase 16 U/L (6-50); Alkaline Phosphatase 62 U/L (38-126); Anion Gap 10 mmol/L (8-16); Aspartate Amino Transferase 24 U/L (17-59); Bilirubin,Total 0.7 mg/dL (0.2-1.3); Blood Urea Nitrogen 32 mg/dL (9-20); CRP 3.5 mg/dL (<1.0); Calcium 8.9 mg/dL (8.4-10.2); Carbon Dioxide 25 mmol/L (22-30); Chloride 102 mmol/L (98-107); Estimated CRCL calculation 51 ml/min; Estimated Glomerular Filt Rate 35; Glucose 123 mg/dL (65-110); Phosphorus 3.4 mg/dL (2.5-4.5); Potassium 4.7 mmol/L (3.4-5.0); Sodium 137 mmol/L (137-145); Uric Acid 10.5 mg/dL (3.5-8.5)
[2023-04-15] MEDS: POTASSIUM CHLORIDE 20 MEQ ER TABLET 40 MEQ PO ×3 (08:10→16:45)
[2023-04-15] MEDS: BUMETANIDE 1 MG TABLET 3 MG PO ×3 (08:11→16:44)
[2023-04-15] MEDS: METOPROLOL TARTRATE 50 MG TAB PO (08:11)
[2023-04-15] MEDS: acetaZOLAMIDE TAB 250 MG TABLET PO (08:11)
[2023-04-15] MEDS: TAMSULOSIN HCL 0.4 MG CAPSULE PO (08:11)
[2023-04-15] MEDS: SPIRONOLACTONE 25 MG TABLET PO (08:11)
[2023-04-15] MEDS: allopurinoL 100 MG TABLET PO (08:11)
[2023-04-15] MEDS: GABAPENTIN 300 MG CAPSULE PO ×3 (08:12→16:44)
[2023-04-15] MEDS: FLUTICASONE PROPIONATE 0.05% NA SPR 16 GM BTL (*BKC) 2 SPRAY NASAL (08:12)
[2023-04-15] MEDS: minoxidiL 2.5 MG TABLET 5 MG PO (08:12)
[2023-04-15] MEDS: APIXABAN 5 MG TABLET PO (08:12)
[2023-04-15] MEDS: COLCHICINE 0.6 MG TABLET PO (08:12)
[2023-04-15] MEDS: LORATADINE 10 MG TABLET PO (08:12)
[2023-04-15] MEDS: MUPIROCIN 2% OINT 22 GM TUBE 1 APPLIC TOPICAL ×2 (08:12→16:44)
[2023-04-15] MEDS: FAMOTIDINE 20 MG TABLET PO (08:12)
[2023-04-15] MEDS: LACTIC ACID 12% LOTION 225 BTL 1 APPLIC TOPICAL (08:12)
--- NOTE | 2023-04-15 10:36 | PM.PNNEP ---
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 2 in the past for JENA on CKD and volume/fluid overload unresponsive to diuretic therapy follow trend of repeat labs and UOP (2) Edema: Code(s): R60.9 - Edema, unspecified Status: Chronic Assessment and Plan: chronic issue at baseline on diuretics at this time his AMELIA and minoxidil use are contributing continue current therapy (3) Gout: Code(s): M10.9 - Gout, unspecified Status: Acute Assessment and Plan: elevated uric acid with clear features in his joints on low dose colchicine allopurinol to start today follow symptoms (4) Benign hypertension with chronic kidney disease: Code(s): I12.9 - Hypertensive chronic kidney disease with stage 1 through stage 4 chronic kidney disease, or unspecified chronic kidney disease Status: Chronic Assessment and Plan: reasonable control follow trend of hemodynamics (5) Chronic congestive heart failure: Qualifiers: Heart failure type: unspecified Qualified Code(s): I50.9 - Heart failure, unspecified Code(s): I50.9 - Heart failure, unspecified Status: Chronic Assessment and Plan: mostly right-sided heart failure probably from AMELIA and diastolic dysfunction on diuretics to maintain euvolemia follows with Cardiology as an outpatient Will continue to follow. Subjective Date/time seen: 04/15/23 10:36 Interval history: Follow-up for chronic kidney disease and hyperuricemia/gout. Chart reviewed -- assuming care from Dr. Al; hands and upper extremity joints seems to be doing better with current therapy/interventions; no apparent distress voiced at the time of my visit; no other issues/events overnight or earlier this morning. Exam Narrative: General: Large WD/WN male in NAD Heart: normal S1 and S2; no rub Lungs: clear but decreased at bases Abdomen: soft, nontender, nondistended, positive bowel sounds Extremities: no cyanosis or clubbing; wrist and finger less swollen and with less TTP Skin: chronic changes noted in LEs Objective Data Vital Signs Vital Signs: Vital Signs Temp Pulse Resp BP Pulse Ox O2 Del Method 04/15/23 08:00 Room Air 04/15/23 08:39 Room Air 04/15/23 06:00 97.3 F L 85 18 113/66 99 04/14/23 22:45 105 H 98 CPAP 04/14/23 21:47 97.4 F L 109 H 18 135/67 100 04/14/23 20:55 109 H 04/14/23 20:00 Room Air 04/14/23 14:00 97 F L 72 16 128/58 L 100 Intake/Output Intake/Output: Intake & Output 04/12/23 04/13/23 04/14/23 04/15/23 23:59 23:59 23:59 23:59 Intake Total 4577 2652 1970 790 Output Total 2615 2630 1400 2275 Balance 2 22 570 -1485 Meds/Results Medications: Active Medications Generic Name Dose Route Start Last Admin Trade Name Marcosq PRN Reason Stop Dose Admin Acetaminophen 1,000 mg 04/12/23 00:03 04/14/23 05:16 Acetaminophen 500 Mg Tablet PO 1,000 mg Q6H PRN Administration Pain Acetazolamide 250 mg 04/12/23 09:00 04/15/23 08:11 Acetazolamide Tab 250 Mg Tablet PO 250 mg DAILY ANGELA Administration Allopurinol 100 mg 04/15/23 08:00 04/15/23 08:11 Allopurinol 100 Mg Tablet PO 100 mg DAILY@0800 ANGELA Administration Apixaban 5 mg 04/12/23 09:00 04/15/23 08:12 Apixaban 5 Mg Tablet PO 5 mg Q12HR ANGELA Administration Bumetanide 3 mg 04/12/23 09:00 04/15/23 12:18 Bumetanide 1 Mg Tablet PO 3 mg TID ANGELA Administration Colchicine 0.6 mg
--- NOTE | 2023-04-15 10:36 | P.PNNP_ITS ---
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 2 in the past for JENA on CKD and volume/fluid overload unresponsive to diuretic therapy * follow trend of repeat labs and UOP (2) Edema: Code(s): R60.9 - Edema, unspecified Status: Chronic Assessment and Plan: * chronic issue at baseline * on diuretics at this time * his AMELIA and minoxidil use are contributing * continue current therapy (3) Gout: Code(s): M10.9 - Gout, unspecified Status: Acute Assessment and Plan: * elevated uric acid with clear features in his joints * on low dose colchicine * allopurinol to start today * follow symptoms (4) Benign hypertension with chronic kidney disease: Code(s): I12.9 - Hypertensive chronic kidney disease with stage 1 through stage 4 chronic kidney disease, or unspecified chronic kidney disease Status: Chronic Assessment and Plan: * reasonable control * follow trend of hemodynamics (5) Chronic congestive heart failure: Qualifiers: Heart failure type: unspecified Qualified Code(s): I50.9 - Heart failure, unspecified Code(s): I50.9 - Heart failure, unspecified Status: Chronic Assessment and Plan: * mostly right-sided heart failure probably from AMELIA and diastolic dysfunction * on diuretics to maintain euvolemia * follows with Cardiology as an outpatient Will continue to follow. Subjective Date/time seen: 04/15/23 10:36 Interval history: Follow-up for chronic kidney disease and hyperuricemia/gout. Chart reviewed -- assuming care from Dr. Al; hands and upper extremity joints seems to be doing better with current therapy/interventions; no apparent distress voiced at the time of my visit; no other issues/events overnight or earlier this morning. Exam Narrative: General: Large WD/WN male in NAD Heart: normal S1 and S2; no rub Lungs: clear but decreased at bases Abdomen: soft, nontender, nondistended, positive bowel sounds Extremities: no cyanosis or clubbing; wrist and finger less swollen and with less TTP Skin: chronic changes noted in LEs Objective Data Vital Signs Vital Signs: Vital Signs Temp Pulse Resp BP Pulse Ox O2 Del Method 04/15/23 08:00 Room Air 04/15/23 08:39 Room Air 04/15/23 06:00 97.3 F L 85 18 113/66 99 04/14/23 22:45 105 H 98 CPAP 04/14/23 21:47 97.4 F L 109 H 18 135/67 100 04/14/23 20:55 109 H 04/14/23 20:00 Room Air 04/14/23 14:00 97 F L 72 16 128/58 L 100 Intake/Output Intake/Output: Intake & Output 04/12/23 04/13/23 04/14/23 04/15/23 23:59 23:59 23:59 23:59 Intake Total 4577 2652 1970 790 Output Total 2615 2630 1400 2275 Balance 2 22 570 1482 Meds/Results Medications: Active Medications
[2023-04-15 14:00] VITALS: BP 115/67; PULSE 106; RESP 20; TEMP 36.6; O2SAT 100
--- NOTE | 2023-04-15 14:39 | PM.DS ---
DS: Admitting Diagnosis Discharge Date 04/15/23 Admitting Diagnosis Gout flare physical debility gait abnormality weakness stage 3b CKD Morbid obesity DS: Discharge Diagnosis Discharge Diagnosis (1) Gout flare: Code(s): M10.9 - Gout, unspecified Status: Acute (2) Physical debility: Code(s): R53.81 - Other malaise Status: Acute (3) Gait abnormality: Code(s): R26.9 - Unspecified abnormalities of gait and mobility Status: Acute (4) Weakness: Code(s): R53.1 - Weakness Status: Acute (5) Stage 3b chronic kidney disease: Code(s): N18.32 - Chronic kidney disease, stage 3b Status: Acute (6) Venous stasis dermatitis of both lower extremities: Code(s): I87.2 - Venous insufficiency (chronic) (peripheral) Status: Acute (7) Morbid obesity with BMI of 50.0-59.9, adult: Code(s): E66.01 - Morbid (severe) obesity due to excess calories; Z68.43 - Body mass index [BMI] 50.0-59.9, adult Status: Acute DS: Summary Hospital Course Reason for hospitalization: Gout flare physical debility weakness gait abnormality Hospital Course: This is a 73 year old male who presented to the hospital with complaints of left wrist pain and swelling and 2 digit pain and swelling which has worsened over the last two days. Patient denies injury.? Work up in the hospital includes Finger x-ray that shown polyarticular osteoarthritis, severe at the triscaphe joint, moderate at the first carpometacarpal and metacarpophalangeal joints. Wrist x-ray shown polyarticular osteoarthritis. Patient also had a joint aspiration under fluoroscopy guided left radiocarpal joint aspiration which yielded no fluid.? Labs revealed WBC 13.7, ESR 97, Na+ 135, BUN 51, Creatinine 2.0, Uric acid level 11.6, C-reactive protein 13.6. On examination today patient is alert and oriented x3, lying in the bed. He denies any new complaints today. He states that his pain is still about a 6/10 in the right hand and his left wrist has marked improvement with ROM and decreased pain. He has worked with PT and OT and they recommend inpatient rehab as he is still having trouble with transfers. Labs today showing BUN 32, creatinine 1.90, eGFR 35, uric acid level 10.5, CRP 3.5. VSS, patient is afebrile, and currently on room air. He is stable for discharge to [facility] in [place] at this time. He will need to follow up with PCP in 2 weeks. Status at Discharge Cognitive/behavioral status at discharge: Alert and oriented x3 Functional status at discharge: wheelchair bound Overall status at discharge: patient is progressing back to baseline Time Spent with Patient Time attestation: Total time spent providing and/or coordinating discharge services: Time spent: Greater than 30 minutes Exam Narrative: General: In no acute distress, well nourished Head: atraumatic, no encephalopathy Eyes: EOMI, PERRLA, slcera clear ENT: moist mucous membranes, nasal passages clear Neck: supple, no JVD, no adenopathy, trachea midline Cardiac: Normal S1 and S2. No murmur, gallops or friction rubs, peripheral pulses intact. Respiratory: Lungs clear to auscultation, no adventitious lung sounds Gastrointestinal: soft, non-distended, non-tender, normoactive bowel sounds. : voiding without difficulty. Extremities: limited ROM of bilateral lower extremities and bilateral upper extremities. Skin:right hand, 1st digit red with minimal swelling, right foot ulceration, venous stasis dermatitis to bilateral lower extremities. Neuro: Alert and oriented x4, cranial nerves intact, no neuro deficits. Psych: normal mood, normal affect, interactive DS: Data Data Completed and Pending Completed studies during hospitalization: Finger x-ray Wrist x-ray Joint aspiration/injection Pending studies at discharge: None Labs on day of discharge: Labs from last 24 hours 04/15/23 06:08 WBC 9.0 RBC 4.08 L Hgb 12.2 L Hct 39.6
== END 2023-04-15 17:50 | DRG 554 ==
LOC: ANHED 17:54 → ANH3MEDSUR 17:58
PROVIDERS: Nurse Practitioner; Admitting Provider Student in an Organized Health Care Education/Training Program; Emergency Provider Emergency Medicine; PCP Family Medicine; Visit Provider Nurse Practitioner Acute Care
DX: M10.9 Gout, unspecified (principal); I13.0 Hypertensive heart and chronic kidney disease with heart failure and stage 1 through stage 4 chronic kidney disease, or unspecified chronic kidney disease; Z68.43 Body mass index [BMI] 50.0-59.9, adult; I48.11 Longstanding persistent atrial fibrillation; I50.812 Chronic right heart failure; N18.32 Chronic kidney disease, stage 3b; E78.5 Hyperlipidemia, unspecified; D63.1 Anemia in chronic kidney disease; E66.01 Morbid (severe) obesity due to excess calories; G89.29 Other chronic pain; I87.2 Venous insufficiency (chronic) (peripheral); E03.9 Hypothyroidism, unspecified; G47.33 Obstructive sleep apnea (adult) (pediatric); G62.9 Polyneuropathy, unspecified; M15.9 Polyosteoarthritis, unspecified; K21.9 Gastro-esophageal reflux disease without esophagitis; M54.9 Dorsalgia, unspecified; Z90.49 Acquired absence of other specified parts of digestive tract; Z87.891 Personal history of nicotine dependence; R26.9 Unspecified abnormalities of gait and mobility; Z99.3 Dependence on wheelchair
CPT/HCPCS: 20605; 36415; 73110; 73140; 77002; 80053; 84100; 84550; 85025; 85055; 85652; 86140; 96361; 96374; 97110; 97162; 97166; 97530; 99285; A9270; G0378; J2270; J7030; Q9966

== ENCOUNTER 2023-05-22 11:56 | Emergency (ER) | payer MEDICARE, OTHER, SELFPAY ==
--- NOTE | ~2023-05-22 | XR_ITS ---
EXAMINATION: XR knee LT 3V DATE: 05/22/2023 12:55 INDICATION: Left knee pain TECHNIQUE: Three views of the left knee were obtained. COMPARISON: None. FINDINGS: Alignment is normal. No fracture or osteochondral lesion. There is mild tricompartmental os teoarthritis characterized by tiny marginal osteophytes. There is a moderate size knee joint effusion . Calcified atherosclerosis is noted. IMPRESSION: 1. Osteoarthritis and moderate size knee joint effusion without acute osseous abnormality. Reviewed, dictated and finalized at location B. [employer]AM MEMBER IMPRESSION: 1. Osteoarthritis and moderate size knee joint effusion without acute osseous a bnormality.
--- NOTE | ~2023-05-22 | XR_ITS ---
EXAMINATION: XR knee RT 3V DATE: 05/22/2023 12:54 INDICATION: Right knee pain TECHNIQUE: Three views of the right knee were obtained. COMPARISON: 07/28/2021 FINDINGS: There are changes of interval internal fixation of the previously described comminuted dist al femur fracture. There is lucency at the fracture site which could reflect nonunion. There is uncha nged osteoarthritis of the knee. No joint effusion/synovitis. Calcified atherosclerosis is noted. IMPRESSION: 1. No acute osseous abnormality. Internal stabilized distal femur fracture with some evidence of nonu nion. Reviewed, dictated and finalized at location B. OUT STITCHER IMPRESSION: 1. No acute osseous abnormality. Internal stabilized distal femur fracture with some evidence of nonunion.
--- NOTE | ~2023-05-22 | XR_ITS ---
EXAMINATION: XR wrist RT min 3V INDICATION: Right wrist pain TECHNIQUE: Four views of the right wrist are obtained. COMPARISON: 04/11/2023 FINDINGS: There is advanced osteoarthritis at the triscaphe joint and moderate osteoarthritis at the first carpometacarpal joint. There is no fracture. Calcified atherosclerosis is noted. Surgical clips project near the first metacarpal. Osseous fragments near the ulnar styloid likely reflect prior avu lsion injury. Again noted is nonspecific cystic change with thin sclerotic margins of the ulnar stylo id process. IMPRESSION: 1. Polyarticular osteoarthritis without acute osseous abnormality identified. Reviewed, dictated and finalized at location B. ET EXAMINER
[2023-05-22 12:01] VITALS: BP 120/45; PULSE 103; RESP 19; TEMP 36.6; O2SAT 99
--- NOTE | 2023-05-22 12:21 | ED.FALL ---
HPI - Fall General Chief Complaint: Extremity Injury, Lower Stated Complaint: fall Time Seen by Provider: 05/22/23 12:06 History of Present Illness HPI Narrative: 73 years old white male came from home by ambulance complaining of left knee pain after falling while trying to get from his motor chair to a truck. Patient denies other injuries. Patient report having flare-up of gouty arthritis of the right wrist, right knee in for a while, [facility] History of gouty arthritis with intermittent flare Related Data Home Medications Medication Instructions Recorded Confirmed loratadine 10 mg tablet (Claritin) 10 mg PO DAILY 07/12/20 04/15/23 polyethylene glycol 3350 17 17 g PO DAILY PRN Constipation 06/02/21 04/15/23 gram/dose oral powder (Miralax) acetazolamide 250 mg tablet 250 mg PO DAILY 11/19/22 04/15/23 fluticasone propionate 50 1 spray intranasal DAILY PRN 11/19/22 04/15/23 mcg/actuation nasal Congestion spray,suspension (Flonase Allergy Relief) minoxidil 10 mg tablet 10 mg PO DAILY 11/19/22 04/15/23 potassium chloride 20 mEq 40 meq PO TID 03/19/23 04/15/23 tablet,extended release (K-Tab) Allergies Allergy/AdvReac Type Severity Reaction Status Date / Time Sulfa (Sulfonamide Allergy Mild Rash Verified 05/22/23 12:20 Antibiotics) Penicillins Allergy Unknown SWELLING Verified 05/22/23 12:20 codeine AdvReac Mild N/V Verified 05/22/23 12:20 hydrocodone AdvReac Mild N/V Verified 05/22/23 12:20 tramadol AdvReac Mild Nausea Verified 05/22/23 12:20 [facility] Past Medical History Medical History Atrial fibrillation Chronic acquired lymphedema Chronic anemia Chronic congestive heart failure Echocardiogram in May 2021 was technically difficult and showed normal LV systolic function with an EF of 60 to 65%, severely enlarged RV chamber with moderate to severely reduced RV systolic function, severe biatrial enlargement, and moderate pulmonary hypertension. Chronic kidney disease Chronic low back pain Chronic venous insufficiency CKD (chronic kidney disease) stage 3, GFR 30-59 ml/min Required temporary dialysis and spring 2021. Dyslipidemia Environmental allergies Essential (primary) hypertension GERD without esophagitis Hypothyroidism Lymphedema of both lower extremities Obstructive sleep apnea Ocular rosacea Peripheral polyneuropathy Rosacea Venous stasis dermatitis of both lower extremities Surgical History Surgical History H/O eye surgery (~2006) [id number] BJ History of carpal tunnel release History of cholecystectomy (2008) History of discectomy (2012) History of foot surgery Left Foot History of rotator cuff surgery Bilateral. History of thoracic surgery Pericardial effusion s/p pericardial window thought secondary to minoxidil, in 2010 at [facility]. Family History Family History Father Cardiovascular disease Grandparent Cancer Mother COPD (chronic obstructive pulmonary disease) Father Family history of cardiovascular disease Grandparent Family history of malignant neoplasm Social History Social History Social History: Surrogate medical decision maker: Shyla Hurst, daughter. Code status: Full code. Smoking packs per day: 2 Smoking cigarettes per day: 40.0 Years smoked: 15 Smoking pack-years: 30.00 Smoking status: Former smoker Second hand tobacco smoke exposure: No Additional smoking assessment comments: QUIT IN 1978 Alcohol intake: former Drinks per week: 14 Alcohol use details: One beer daily. Substance use: never Substance use type: does not use Do You Feel Safe in your Home?: Yes Lack of Transportation: No Lack of Food: Never True Current Housing: [facility]
[2023-05-22] MEDS: ONDANSETRON INJ 4 MG/2 ML VIAL 8 MG IV PUSH (12:39)
[2023-05-22] MEDS: MORPHINE SULFATE (*CRX) 4 MG/ML INJ IV PUSH (12:40)
[2023-05-22 17:39] VITALS: BP 114/69; PULSE 99; RESP 17; O2SAT 100
== END 2023-05-22 18:01 | disposition home or self-care (01) ==
PROVIDERS: Emergency Provider Emergency Medicine; PCP Family Medicine
DX: S83.92XA Sprain of unspecified site of left knee, initial encounter (principal); M10.9 Gout, unspecified; I48.91 Unspecified atrial fibrillation; D64.9 Anemia, unspecified; I13.0 Hypertensive heart and chronic kidney disease with heart failure and stage 1 through stage 4 chronic kidney disease, or unspecified chronic kidney disease; N18.30 Chronic kidney disease, stage 3 unspecified; I50.9 Heart failure, unspecified; K21.9 Gastro-esophageal reflux disease without esophagitis; G47.30 Sleep apnea, unspecified; V58.4XXA Person boarding or alighting a pick-up truck or van injured in noncollision transport accident, initial encounter
CPT/HCPCS: 73110; 73562; 96374; 96375; 99284; J2270; J2405

== ENCOUNTER 2023-06-20 11:12 | Outpatient (CLI) | payer MEDICARE, OTHER, SELFPAY ==
[2023-06-20 17:09] LABS: Albumin Level 3.5 g/dL (3.5-5.1); Anion Gap 6 mmol/L (8-16); Blood Urea Nitrogen 30 mg/dL (9-20); Calcium 8.5 mg/dL (8.4-10.2); Carbon Dioxide 28 mmol/L (22-30); Chloride 100 mmol/L (98-107); Estimated Glomerular Filt Rate 31; Glucose 120 mg/dL (65-110); Phosphorus 2.8 mg/dL (2.5-4.5); Potassium 3.5 mmol/L (3.4-5.0); Sodium 134 mmol/L (137-145); Uric Acid 8.7 mg/dL (3.5-8.5)
== END 2023-06-20 11:13 | disposition home or self-care (01) ==
PROVIDERS: PCP Family Medicine; Visit Provider Internal Medicine Nephrology
DX: M10.9 Gout, unspecified (principal); N18.4 Chronic kidney disease, stage 4 (severe)
CPT/HCPCS: 36415; 80069; 84550

== ENCOUNTER 2023-08-26 09:49 | Inpatient (IN) | payer MEDICARE, OTHER, SELFPAY ==
[2023-08-26] VITALS (15 sets, daily range): BP systolic 78–124; BP diastolic 36–68; PULSE 73–97; RESP 12–20; TEMP 36.5–36.8; O2SAT 94–100; BMI 47.4
--- NOTE | ~2023-08-26 | XR_ITS ---
EXAMINATION: XR lumbar spine 1V DATE: 08/28/2023 15:43 INDICATION: Low back pain. Fall. TECHNIQUE: 2 views of lumbar spine were obtained. COMPARISON: Lumbar spine radiographs 06/27/2012, lumbar spine MRI 03/18/2023 FINDINGS: Sensitivity is decreased by obesity. Bone alignment is normal. Vertebral body heights are n ormal. There is mildly decreased disc height at L2-L3 and L3-L4. There is multilevel facet joint oste oarthritis, severe in lower lumbar spine. IMPRESSION: 1. Mild lumbar spondylosis. Reviewed, dictated and finalized at location A. IMPRESSION: 1. Mild lumbar spondylosis.
--- NOTE | ~2023-08-26 | XR_ITS ---
EXAMINATION: XR chest 2V DATE: 08/26/2023 11:55 INDICATION: Weakness. TECHNIQUE: Frontal and lateral views of the chest were obtained on 3 radiographs. COMPARISON: Chest single view 03/18/2023 FINDINGS: There is mild atelectasis in left lower lung zone. No pleural effusion or pneumothorax. The heart size is normal. IMPRESSION: 1. Mild atelectasis in left lower lung zone. Reviewed, dictated and finalized at location E.
--- NOTE | ~2023-08-26 | MR_ITS ---
EXAMINATION: MR foot RT wo/w con DATE: 08/29/2023 12:32 INDICATION: Right foot osteomyelitis. TECHNIQUE: Magnetic resonance imaging (MRI) of the right foot was performed without and with 20 mL Mu ltiHance intravenous contrast. COMPARISON: Right foot radiographs 08/26/2023 FINDINGS: Bone alignment is normal. No fracture. There is moderate osteoarthritis of first metatarsop halangeal joint and mild osteoarthritis of many the interphalangeal joints and midfoot joints. Lisfra nc ligament is intact. The extensor flexor tendons are normal. There is widespread edema of the soft tissue. There is widespread severe fatty atrophy of musculature. There is increased T2-weighted signa l intensity in the musculature, consistent with subacute on chronic denervation. IMPRESSION: 1. No evidence of osteomyelitis. Reviewed, dictated and finalized at location A.
--- NOTE | ~2023-08-26 | XR_ITS ---
EXAMINATION: XR foot RT min 3V DATE: 08/26/2023 12:42 INDICATION: Right foot infection. TECHNIQUE: 3 views of right foot were obtained. COMPARISON: Right foot radiographs 03/18/2023 FINDINGS: Bone alignment is normal. No fracture. There is mild osteoarthritis of first metatarsophala ngeal joint and some of the interphalangeal joints and midfoot joints. There are enthesophytes at the posterior and plantar aspects of calcaneal tuberosity. There is soft tissue swelling identified. IMPRESSION: 1. No evidence of osteomyelitis. Reviewed, dictated and finalized at location E.
--- NOTE | ~2023-08-26 | XR_ITS ---
EXAMINATION: XR hip LT min 2V DATE: 08/28/2023 15:43 INDICATION: Left hip pain. Fall. TECHNIQUE: 2 views of left hip were obtained. COMPARISON: None. FINDINGS: Bone alignment is normal. No fracture. There is mild left hip osteoarthritis. IMPRESSION: 1. Mild left hip osteoarthritis. Reviewed, dictated and finalized at location A.
--- NOTE | 2023-08-26 09:57 | ECG_ITS ---
SEE SCANNED COPY FOR CONFIRMED REPORT MTDD
[2023-08-26 10:11] LABS: Basophils Absolute Auto 0.1 K/mm3 (0.0-0.1); Basophils Percent Auto 0.2 % (0.2-1.2); Hematocrit 37.6 % (42.0-52.0); Hemoglobin 12.3 g/dL (14.0-18.0); Immature Granulocyte Absolute 0.23 K/mm3 (0.00-0.031); Immature Granulocyte Percent A 0.9 % (0-0.5); Lymphocytes Absolute Auto 0.39 K/mm3 (0.9-3.2); Lymphocytes Percent Auto 1.6 % (18.3-44.2); Mean Corpuscular HGB Conc 32.7 g/dl (32-36); Mean Corpuscular Hemoglobin 29.5 pg (26-34); Mean Corpuscular Volume 90.2 fl (80-100); Mean Platelet Volume 10.6 fl (7.4-10.4); Monocytes Absolute Auto 1.2 K/mm3 (0.1-0.6); Monocytes Percent Auto 4.7 % (2.6-8.5); Neutrophils Absolute Auto 22.7 K/mm3 (1.3-6.7); Neutrophils Percent Auto 92.6 % (45.5-73.1); Platelet Count Result 291 k/mm3 (150-375); Red Blood Count 4.17 M/mm3 (4.6-6.20); Red Cell Distribution Width 14.7 % (11.5-14.5); White Blood Count 24.5 K/mm3 (4.5-10.0)
[2023-08-26 10:25] LABS: Alanine Aminotransferase 16 U/L (6-50); Albumin Level 4.2 g/dL (3.5-5.1); Alkaline Phosphatase 40 U/L (38-126); Anion Gap 10 mmol/L (4-12); Aspartate Amino Transferase 102 U/L (17-59); Bilirubin,Total 1.2 mg/dL (0.2-1.3); Blood Urea Nitrogen 79 mg/dL (9-20); Calcium 8.7 mg/dL (8.4-10.2); Carbon Dioxide 33 mmol/L (22-30); Chloride 87 mmol/L (98-107); Estimated CRCL calculation 27 ml/min; Estimated Glomerular Filt Rate 17; Glucose 137 mg/dL (65-110); Potassium 2.4 mmol/L (3.4-5.0); Sodium 130 mmol/L (137-145)
[2023-08-26] MEDS: POTASSIUM CHLORIDE 20 MEQ ER TABLET 40 MEQ PO (10:48)
[2023-08-26] MEDS: POTASSIUM CHLORIDE 20 MEQ PACKET (FOR LIQUID) 40 MEQ PO (10:48)
[2023-08-26 11:00] LABS: Anisocytosis 1+; Hypochromasia 1+; Ovalocytes 1+; Schistocytes None Seen
[2023-08-26] MEDS: SODIUM CHLORIDE 0.9% IV 1,000 ML 150 ML IV CONT (11:00)
[2023-08-26 11:08] LABS: Platelet Estimate Adequate (Adequate)
[2023-08-26 11:10] LABS: Magnesium 2.5 mg/dL (1.6-2.3)
--- NOTE | 2023-08-26 11:19 | ED.FALL ---
HPI - Fall General Chief Complaint: Fall Stated Complaint: multiple complaints Time Seen by Provider: 08/26/23 10:31 History of Present Illness HPI Narrative: Patient is a 73-year-old male who presents to the emergency department this morning complaining of generalized weakness. Patient states that he has been feeling generally unwell for the past few days and has been having hard time ambulating at home. Patient has a chronic right lower extremity wound that he was following up the with [facility], however, he has not been there in over a month. When asked if he was supposed to follow up he said no. Patient is currently denying any chest pain or shortness of breath, denies any fevers or chills at home. Related Data Home Medications Medication Instructions Recorded Confirmed loratadine 10 mg tablet (Claritin) 10 mg PO DAILY 07/12/20 06/26/23 polyethylene glycol 3350 17 17 g PO DAILY PRN Constipation 06/02/21 06/26/23 gram/dose oral powder (Miralax) acetazolamide 250 mg tablet 250 mg PO DAILY 11/19/22 06/26/23 fluticasone propionate 50 1 spray intranasal DAILY PRN 11/19/22 06/26/23 mcg/actuation nasal Congestion spray,suspension (Flonase Allergy Relief) minoxidil 10 mg tablet 10 mg PO DAILY 11/19/22 06/26/23 Allergies Allergy/AdvReac Type Severity Reaction Status Date / Time Sulfa (Sulfonamide Allergy Mild Rash Verified 06/26/23 11:22 Antibiotics) Penicillins Allergy Unknown SWELLING Verified 06/26/23 11:22 codeine AdvReac Mild N/V Verified 06/26/23 11:22 hydrocodone AdvReac Mild N/V Verified 06/26/23 11:22 tramadol AdvReac Mild Nausea Verified 06/26/23 11:22 Review of Systems Review of Systems: All systems are reviewed and are negative unless stated otherwise in the [facility]. [facility] Past Medical History Medical History Atrial fibrillation Chronic acquired lymphedema Chronic anemia Chronic congestive heart failure Echocardiogram in May 2021 was technically difficult and showed normal LV systolic function with an EF of 60 to 65%, severely enlarged RV chamber with moderate to severely reduced RV systolic function, severe biatrial enlargement, and moderate pulmonary hypertension. Chronic kidney disease Chronic low back pain Chronic venous insufficiency CKD (chronic kidney disease) stage 3, GFR 30-59 ml/min Required temporary dialysis and spring 2021. Dyslipidemia Environmental allergies Essential (primary) hypertension GERD without esophagitis Gout Hypothyroidism Lymphedema of both lower extremities Obstructive sleep apnea Ocular rosacea Peripheral polyneuropathy Rosacea Venous stasis dermatitis of both lower extremities Surgical History Surgical History H/O eye surgery (~2005) [id number] [facility] History of carpal tunnel release History of cholecystectomy (2008) History of discectomy (2012) History of foot surgery Left Foot History of rotator cuff surgery Bilateral. History of thoracic surgery Pericardial effusion s/p pericardial window thought secondary to minoxidil, in 2010 at [facility]. Family History Family History Father Cardiovascular disease Grandparent Cancer Mother COPD (chronic obstructive pulmonary disease) Father Family history of cardiovascular disease Grandparent Family history of malignant neoplasm Social History Social History Social History: Surrogate medical decision maker: Shyla Hurst, daughter. Code status: Full code. Smoking packs per day: 2 Smoking cigarettes per day: 40.0 Years smoked: 15 Smoking pack-years: 30.00 Smoking status: Former smoker Second hand tobacco smoke exposure: No Additional smoking assessment comments: QUIT IN 1978 Alcohol intake: former Drinks per week: 14 Alcohol use det
[2023-08-26 11:55] LABS: Lactic Acid Reflex 1.9 mmol/L (0.7-2.0)
--- NOTE | 2023-08-26 12:23 | ECG_ITS ---
SEE SCANNED COPY FOR CONFIRMED REPORT MTDD
[2023-08-26] MEDS: SODIUM CHLORIDE 0.9% IV 500 ML 999 ML IV CONT (13:08)
[2023-08-26] MEDS: GABAPENTIN 300 MG CAPSULE PO ×2 (13:08→20:42)
--- NOTE | 2023-08-26 13:16 | PC.NURSE ---
patient declines straight catheter, but was provided urinal and educated to use call light with any urge to urinate. provider notified
[2023-08-26 13:22] LABS: CRP 19.5 mg/dL (<1.0)
--- NOTE | 2023-08-26 13:39 | ADMGEN ---
This patient, Irwin Cyr Jr., was admitted to [facility] Surg Room 311-01. Patient/family oriented to hospital policies and general routines including ID bracelet, bed and alarms, visiting hours, pain management, procedures, bathroom and other care routines, personal items, smoking policy, room service/diet, and visiting hours. Information on how to activate the Rapid Response Team has been discussed. Patient/Family are encouraged to report perceived risks to care and to ask questions if they do not understand what they are told or what they should do.
--- NOTE | 2023-08-26 14:03 | PM.IMHP ---
H&P: HPI History of Present Illness Date/Time: 08/26/23 14:15 Chief Complaint: Weakness. Narrative: This is a very pleasant 73-year-old male with hypertension, dyslipidemia, heart failure with preserved ejection fraction atrial fibrillation on chronic anticoagulation, hypothyroidism, sleep apnea, GERD, chronic kidney disease, and chronic lymphedema of the lower extremities who presented to the emergency department via for evaluation after a ground level fall. He has been wheelchair bound following a back injury and surgery and uses a motorized scooter at home. He has been able to stand and pivot to transfer however the last 3 days he has felt increasingly weak and he had a fall last night while trying to get in to bed. EMS was called for lift assist and he declined transfer at that time. Today he was feeling worse and came in for evaluation as he is concerned that he may have a developing infection at the site of a chronic wound on his right foot. His daughter noticed the development of blisters on top of the foot and last couple of days it has become red and painful. He was previously treated for this wound as the wound clinic but has not been seen for about a month. He denies syncope, near syncope, fever, chills, sweats, nausea, and vomiting. In the ED: He was afebrile on arrival. Blood pressure was as low as 78 or 50 but has responded to IV fluids. Labs were significant for WBC count of 24.5, hemoglobin 12.3, sodium 130, potassium 2.4, chloride 87, carbon dioxide 33, BUN 79, creatinine 2.60, lactic acid 1.9. Chest x-ray showed mild atelectasis in left lower lung zone. Right foot x-ray showed no evidence of osteomyelitis or gas but soft tissue swelling was noted. He received 500 mL of normal saline and is being admitted in this setting for further treatment and evaluation. Review of Systems Review of Systems: 12 systems were reviewed and are negative except for as per HPI. [facility] Past Medical History Medical History Atrial fibrillation Chronic acquired lymphedema Chronic anemia Chronic congestive heart failure Echocardiogram in May 2021 was technically difficult and showed normal LV systolic function with an EF of 60 to 65%, severely enlarged RV chamber with moderate to severely reduced RV systolic function, severe biatrial enlargement, and moderate pulmonary hypertension. Chronic kidney disease Chronic low back pain Chronic venous insufficiency Dyslipidemia Environmental allergies Essential (primary) hypertension GERD without esophagitis Gout Hypothyroidism Lymphedema of both lower extremities Obstructive sleep apnea Ocular rosacea Peripheral polyneuropathy Rosacea Surgical History Surgical History H/O eye surgery (~2006) [phone] [facility] History of carpal tunnel release History of cholecystectomy (2008) History of discectomy (2012) History of foot surgery Left Foot History of rotator cuff surgery Bilateral. History of thoracic surgery Pericardial effusion s/p pericardial window thought secondary to minoxidil, in 2010 at [facility]. Family History Family History Father Cardiovascular disease Grandparent Cancer Mother COPD (chronic obstructive pulmonary disease) Father Family history of cardiovascular disease Grandparent Family history of malignant neoplasm Social History Social History Social History: Surrogate medical decision maker: Shyla Hurst, daughter. Code status: Full code. Smoking packs per day: 2 Smoking cigarettes per day: 40.0 Years smoked: 15 Smoking pack-years: 30.00 Smoking status: Former smoker Second hand tobacco smoke exposure: No Additional smoking assessment comments: 1978 Alcohol intake: former Drinks per week: 14 Alcohol
[2023-08-26] MEDS: MEROPENEM 1 GM/NS 100 ML 1 GM/100 ML BAG IVPB ×2 (15:04→20:43)
[2023-08-26] MEDS: CLINDAMYCIN 900 MG/D5W 50 ML 900 MG/50 ML PIGGYBACK 50 MG IVPB ×2 (15:06→22:57)
[2023-08-26 15:52] LABS: Anion Gap 9 mmol/L (4-12); Blood Urea Nitrogen 79 mg/dL (9-20); Calcium 8.3 mg/dL (8.4-10.2); Carbon Dioxide 32 mmol/L (22-30); Chloride 92 mmol/L (98-107); Estimated CRCL calculation 25 ml/min; Estimated Glomerular Filt Rate 16; Glucose 108 mg/dL (65-110); Potassium 3.1 mmol/L (3.4-5.0); Sodium 133 mmol/L (137-145)
[2023-08-26] MEDS: SODIUM CHLORIDE 0.9% IV 1,000 ML 100 ML IV CONT (16:14)
[2023-08-26] MEDS: VANCOMYCIN 2,000 MG/NS 500 ML 2,000 MG/500 ML BAG 250 MG IVPB (16:14)
[2023-08-26 16:44] LABS: Hemoglobin A1C 5.4 % (<5.7)
[2023-08-26 17:07] LABS: Appearance Urine Clear (Clear); Bilirubin Urine Negative (Negative); Blood Urine Negative (Negative); Color Urine Dark Yellow (Yellow); Glucose Urine UA Negative (Negative); Ketones Urine Negative (Negative); Leukocyte Esterase Ur Negative LEU/UL (Negative); Nitrate Urine Negative (Negative); Protein Urine Negative (Negative); Specific Grav Ur 1.015 (1.001-1.035)
--- NOTE | 2023-08-26 17:13 | PC.NURSE ---
I have reviewed and agree with Evelin's charting.
[2023-08-26 17:15] LABS: Add Urine Microscopic? NO
[2023-08-26] MEDS: DOCUSATE SODIUM 100 MG CAPSULE PO (20:42)
[2023-08-26] MEDS: METOPROLOL TARTRATE 50 MG TAB PO (20:42)
[2023-08-26] MEDS: POTASSIUM CHLORIDE 20 MEQ ER TABLET PO (20:42)
[2023-08-26] MEDS: MUPIROCIN 2% OINT 22 GM TUBE 1 APPLIC TOPICAL (20:43)
[2023-08-26] MEDS: EUCERIN CREAM 454 GM JAR 1 APPLIC TOPICAL (20:43)
[2023-08-26] MEDS: WATER FOR IRRIGATION, STERILE 1,000 ML BOTTLE 1000 ML (21:16)
[2023-08-27] VITALS (10 sets, daily range): BP systolic 104–133; BP diastolic 54–117; PULSE 67–84; RESP 16–20; TEMP 36.1–36.9; O2SAT 94–100
[2023-08-27] MEDS: LIDOCAINE HCL 2% GEL UROJET 10 ML PKG MUCOUS MEM (01:47)
[2023-08-27] MEDS: LEVOTHYROXINE SODIUM 100 MCG TABLET 200 MCG PO (05:42)
[2023-08-27] MEDS: GABAPENTIN 300 MG CAPSULE PO ×3 (05:42→21:01)
[2023-08-27] MEDS: SODIUM CHLORIDE 0.9% IV 1,000 ML 100 ML IV CONT ×2 (05:45→17:33)
[2023-08-27] MEDS: CLINDAMYCIN 900 MG/D5W 50 ML 900 MG/50 ML PIGGYBACK 50 MG IVPB (05:49)
[2023-08-27 06:36] LABS: Hematocrit 38.3 % (42.0-52.0); Hemoglobin 11.8 g/dL (14.0-18.0); Mean Corpuscular HGB Conc 30.8 g/dl (32-36); Mean Corpuscular Hemoglobin 29.1 pg (26-34); Mean Corpuscular Volume 94.3 fl (80-100); Mean Platelet Volume 10.9 fl (7.4-10.4); Platelet Count Result 264 k/mm3 (150-375); Red Blood Count 4.06 M/mm3 (4.6-6.20); Red Cell Distribution Width 14.7 % (11.5-14.5); White Blood Count 14.7 K/mm3 (4.5-10.0)
[2023-08-27 06:45] LABS: Alanine Aminotransferase 20 U/L (6-50); Albumin Level 3.9 g/dL (3.5-5.1); Alkaline Phosphatase 41 U/L (38-126); Anion Gap 9 mmol/L (4-12); Aspartate Amino Transferase 106 U/L (17-59); Blood Urea Nitrogen 77 mg/dL (9-20); Calcium 8.3 mg/dL (8.4-10.2); Carbon Dioxide 32 mmol/L (22-30); Chloride 94 mmol/L (98-107); Estimated CRCL calculation 30 ml/min; Estimated Glomerular Filt Rate 19; Glucose 115 mg/dL (65-110); Magnesium 2.6 mg/dL (1.6-2.3); Potassium 3.1 mmol/L (3.4-5.0); Sodium 135 mmol/L (137-145)
[2023-08-27] MEDS: allopurinoL 100 MG TABLET PO (09:36)
[2023-08-27] MEDS: DOCUSATE SODIUM 100 MG CAPSULE PO ×2 (09:36→21:01)
[2023-08-27] MEDS: ACETAMINOPHEN 325 MG TABLET 650 MG PO (09:36)
[2023-08-27] MEDS: MEROPENEM 1 GM/NS 100 ML 1 GM/100 ML BAG IVPB (09:37)
[2023-08-27] MEDS: METOPROLOL TARTRATE 50 MG TAB PO (09:37)
[2023-08-27] MEDS: POTASSIUM CHLORIDE 20 MEQ ER TABLET 40 MEQ PO ×2 (09:37→16:09)
[2023-08-27] MEDS: LORATADINE 10 MG TABLET PO (09:37)
[2023-08-27] MEDS: TAMSULOSIN HCL 0.4 MG CAPSULE PO (09:37)
[2023-08-27] MEDS: MUPIROCIN 2% OINT 22 GM TUBE 1 APPLIC TOPICAL (09:38)
[2023-08-27] MEDS: EUCERIN CREAM 454 GM JAR 1 APPLIC TOPICAL ×2 (09:38→21:06)
[2023-08-27] MEDS: metroNIDAZOLE 500 MG TABLET PO ×2 (13:50→21:01)
--- NOTE | 2023-08-27 14:57 | P.PNIM_ITS ---
Progress Note: A&P Assessment and Plan (1) Sepsis: Qualifiers: Sepsis acute organ dysfunction status: without acute organ dysfunction Sepsis type: sepsis due to unspecified organism Qualified Code(s): A41.9 - S epsis, unspecified organism Code(s): A41.9 - Sepsis, unspecified organism Status: Acute Assessment and Plan: He meets sepsis criteria with leukocytosis, acute on chronic kidney failure, and hypotension in the setting of infected right foot wound. * Sepsis secondary to cellulitis/diabetic foot wound * Broad-spectrum IV antibiotic treatment * No evidence of osteomyelitis on x-ray * White blood cell count on and admission 24.5 now 14.6 * IV fluids continue (2) Cellulitis of right lower extremity: Code(s): L03.115 - Cellulitis of right lower limb Status: Acute Assessment and Plan: The patient presented to the emergency department for evaluation of increasing weakness and worsening right foot wound. * X-ray showed no evidence of osteomyelitis or gas though his LRINEC score is quite high (10) * He was started on broad-spectrum antibiotics of vancomycin, meropenem and clindamycin (08/25) to cover possible necrotizing fasciitis although clinically that is not evident at this time and he is nontoxic in appearance. * Due to lack of evidence of necrotizing fasciitis will change medications to Cefepime and Flagyl for diabetic foot wound coverage 08/26 * MRSA negative and vancomycin discontinued 08/26. * Surgery was consulted possible debridement. * Blood and wound cultures are pending. * Restart Eliquis if patient is not to go to surgery. * Analgesics as needed (3) Wound of right foot: Code(s): S91.301A - Unspecified open wound, right foot, initial encounter Status: Acute Assessment and Plan: * See #2 * Wound care consulted (4) Fall: Code(s): W19.XXXA - Unspecified fall, initial encounter Status: Acute Assessment and Plan: patient sustained a fall after trying to get out of bed and fell between his bed and is wheelchair and struggle to get up and states that he was twisted at a very odd angle. He had to call the fire department to come help get him up off the floor. * Patient is very sore from this encounter, x-rays negative for fracture. * Patient having a lot of muscle spasms, will order Flexeril Q 8 p.r.n. * Analgesics as needed. * PT and OT ordered for the patient. (5) Acute on chronic kidney failure: Code(s): N17.9 - Acute kidney failure, unspecified; N18.9 - Chronic kidney disease, unspecified Status: Acute Assessment and Plan: Patient presented to the hospital with a BUN and creatinine of 79/3.6 that worsened to 79/2.8. * Patient's baseline creatinine is typically in the low to mid 2s * Patient started on IV fluids * BUN and creatinine improving * Monitor daily (6) Electrolyte abnormality: Code(s): E87.8 - Other disorders of electrolyte and fluid balance, not elsewhere classified Status: Acute Assessment and Plan: Patient present to the hospital with a potassium of 2.4, sodium 130, chloride 87, CO2 33. * Patient's potassium was replaced and he was started on normal saline @ 100 cc/hour * Patient on metolazone, spironolactone, and Bumex. This could be causing electrolyte abnormalities. Hold for now. * Electrolytes are improving. * Continue to monitor daily labs. * Replace potassium as necessary (7) Chronic congestive heart failure: Qual
--- NOTE | 2023-08-27 14:57 | PM.IMPN ---
Progress Note: A&P Assessment and Plan (1) Sepsis: Qualifiers: Sepsis acute organ dysfunction status: without acute organ dysfunction Sepsis type: sepsis due to unspecified organism Qualified Code(s): A41.9 - Sepsis, unspecified organism Code(s): A41.9 - Sepsis, unspecified organism Status: Acute Assessment and Plan: He meets sepsis criteria with leukocytosis, acute on chronic kidney failure, and hypotension in the setting of infected right foot wound. Sepsis secondary to cellulitis/diabetic foot wound Broad-spectrum IV antibiotic treatment No evidence of osteomyelitis on x-ray White blood cell count on and admission 24.5 now 14.6 IV fluids continue (2) Cellulitis of right lower extremity: Code(s): L03.115 - Cellulitis of right lower limb Status: Acute Assessment and Plan: The patient presented to the emergency department for evaluation of increasing weakness and worsening right foot wound. X-ray showed no evidence of osteomyelitis or gas though his LRINEC score is quite high (10) He was started on broad-spectrum antibiotics of vancomycin, meropenem and clindamycin (08/25) to cover possible necrotizing fasciitis although clinically that is not evident at this time and he is nontoxic in appearance. Due to lack of evidence of necrotizing fasciitis will change medications to Cefepime and Flagyl for diabetic foot wound coverage 08/26 MRSA negative and vancomycin discontinued 08/26. Surgery was consulted possible debridement. Blood and wound cultures are pending. Restart Eliquis if patient is not to go to surgery. Analgesics as needed (3) Wound of right foot: Code(s): S91.301A - Unspecified open wound, right foot, initial encounter Status: Acute Assessment and Plan: See #2 Wound care consulted (4) Fall: Code(s): W19.XXXA - Unspecified fall, initial encounter Status: Acute Assessment and Plan: patient sustained a fall after trying to get out of bed and fell between his bed and is wheelchair and struggle to get up and states that he was twisted at a very odd angle. He had to call the fire department to come help get him up off the floor. Patient is very sore from this encounter, x-rays negative for fracture. Patient having a lot of muscle spasms, will order Flexeril Q 8 p.r.n. Analgesics as needed. PT and OT ordered for the patient. (5) Acute on chronic kidney failure: Code(s): N17.9 - Acute kidney failure, unspecified; N18.9 - Chronic kidney disease, unspecified Status: Acute Assessment and Plan: Patient presented to the hospital with a BUN and creatinine of 79/3.6 that worsened to 79/2.8. Patient's baseline creatinine is typically in the low to mid 2s Patient started on IV fluids BUN and creatinine improving Monitor daily (6) Electrolyte abnormality: Code(s): E87.8 - Other disorders of electrolyte and fluid balance, not elsewhere classified Status: Acute Assessment and Plan: Patient present to the hospital with a potassium of 2.4, sodium 130, chloride 87, CO2 33. Patient's potassium was replaced and he was started on normal saline @ 100 cc/hour Patient on metolazone, spironolactone, and Bumex. This could be causing electrolyte abnormalities. Hold for now. Electrolytes are improving. Continue to monitor daily labs. Replace potassium as necessary (7) Chronic congestive heart failure: Qualifiers: Heart failure type: unspecified Qualified Code(s): I50.9 - Heart failure, unspecified Code(s): I50.9 - Heart failure, unspecified Status: Chronic Assessment and Plan: Not in an acute exacerbation. Stable. (8) Atrial fibrillation: Qualifiers: Atrial fibrillation type: longstanding persistent Qualified Code(s): I48.11 - Longstanding persistent atrial fibrillation Code(s): I48.
[2023-08-27 15:42] LABS: Potassium 3.2 mmol/L (3.4-5.0)
--- NOTE | 2023-08-27 16:56 | PM.CNGS ---
Assessment and Plan Assessment and plan (1) Venous stasis dermatitis of both lower extremities: Code(s): I87.2 - Venous insufficiency (chronic) (peripheral) Status: Acute Assessment and Plan: no s/s active infection, chronic venous stasis ulcers, local wound care and compression, elevation, would benefit from unna boot if compliant, vascular surgery consult as outpt History of Present Illness Consult details Consult date: 08/27/23 Reason for consult: wound care Requesting physician: Panda Kc MD Narrative: The pt is a 73 y/o M c severe jackie LE wounds from venous insufficiency. Pt is followed in our wound care clinic with last visit a few wks ago. Pt has since fallen and has been pretty immobile. Pt reports increasing swelling, discomfort in jackie LE, R>L. Pt reports some of the blisters have popped causing pain and maceration of the skin. Review of Systems Review of Systems: All systems reviewed & are unremarkable except as noted in HPI and below PMFSH Past Medical History Medical History Atrial fibrillation Chronic acquired lymphedema Chronic anemia Chronic congestive heart failure Echocardiogram in May 2021 was technically difficult and showed normal LV systolic function with an EF of 60 to 65%, severely enlarged RV chamber with moderate to severely reduced RV systolic function, severe biatrial enlargement, and moderate pulmonary hypertension. Chronic kidney disease Chronic low back pain Chronic venous insufficiency Dyslipidemia Environmental allergies Essential (primary) hypertension GERD without esophagitis Gout Hypothyroidism Lymphedema of both lower extremities Obstructive sleep apnea Ocular rosacea Peripheral polyneuropathy Rosacea Surgical History Surgical History H/O eye surgery (~2005) [id number] [facility] History of carpal tunnel release History of cholecystectomy (2008) History of discectomy (2012) History of foot surgery Left Foot History of rotator cuff surgery Bilateral. History of thoracic surgery Pericardial effusion s/p pericardial window thought secondary to minoxidil, in 2010 at [facility]. Family History Family History Father Cardiovascular disease Grandparent Cancer Mother COPD (chronic obstructive pulmonary disease) Father Family history of cardiovascular disease Grandparent Family history of malignant neoplasm Social History Social History (Reviewed 08/27/23 @ 17:04 by QIANA Rosales Social History: Surrogate medical decision maker: Shyla Hurst, daughter. Code status: Full code. Smoking packs per day: 2 Smoking cigarettes per day: 40.0 Years smoked: 15 Smoking pack-years: 30.00 Smoking status: Former smoker Second hand tobacco smoke exposure: No Additional smoking assessment comments: 1978 Alcohol intake: former Drinks per week: 14 Alcohol use details: One beer daily. Substance use: never Substance use type: does not use Do You Feel Safe in your Home?: Yes Lack of Transportation: No Lack of Food: Never True Current Housing: I Have Housing Concerned About Future Housing: No Difficulty Paying Gas/Electric Bills: No Difficulty Paying for Meds: No Currently Unemployed: No Education: High School Diploma/GED Difficulty w/ Childcare or Family Care: No Living arrangements: alone Additional living arrangements comments: Lives in own home in [place]. Uses a motorized scooter and transfers with slide board. Occupation/Education: retired Additional occupation/education comments: Retired. 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 Spiritual care concerns: No Meds Home Medications and Allergies Home Medications Medication Instructions Recorded Confirmed Type loratadine
[2023-08-27] MEDS: CEFEPIME 1 GM/NS 50 ML 1 GM/50 ML BAG IVPB (21:02)
[2023-08-27] MEDS: CYCLOBENZAPRINE HCL 10 MG TABLET PO (21:06)
[2023-08-28] VITALS (9 sets, daily range): BP systolic 123–146; BP diastolic 43–72; PULSE 69–91; RESP 16–20; TEMP 36.2–37.5; O2SAT 94–98; BMI 10.0
[2023-08-28] MEDS: SODIUM CHLORIDE 0.9% IV 1,000 ML 100 ML IV CONT ×2 (03:51→13:07)
[2023-08-28] MEDS: GABAPENTIN 300 MG CAPSULE PO ×3 (05:44→21:54)
[2023-08-28] MEDS: metroNIDAZOLE 500 MG TABLET PO ×3 (05:44→21:54)
[2023-08-28] MEDS: LEVOTHYROXINE SODIUM 100 MCG TABLET 200 MCG PO (05:44)
[2023-08-28 06:17] LABS: Hematocrit 35.7 % (42.0-52.0); Hemoglobin 11.1 g/dL (14.0-18.0); Mean Corpuscular HGB Conc 31.1 g/dl (32-36); Mean Corpuscular Volume 93.2 fl (80-100); Mean Platelet Volume 10.9 fl (7.4-10.4); Platelet Count Result 265 k/mm3 (150-375); Red Blood Count 3.83 M/mm3 (4.6-6.20); Red Cell Distribution Width 14.9 % (11.5-14.5); White Blood Count 10.8 K/mm3 (4.5-10.0)
[2023-08-28 06:32] LABS: Anion Gap 10 mmol/L (4-12); Blood Urea Nitrogen 68 mg/dL (9-20); Calcium 8.2 mg/dL (8.4-10.2); Carbon Dioxide 28 mmol/L (22-30); Chloride 100 mmol/L (98-107); Estimated CRCL calculation 43 ml/min; Estimated Glomerular Filt Rate 29; Glucose 114 mg/dL (65-110); Potassium 3.6 mmol/L (3.4-5.0); Sodium 138 mmol/L (137-145)
--- NOTE | 2023-08-28 07:39 | PM.IMPN ---
Progress Note: A&P Assessment and Plan (1) Sepsis: Qualifiers: Sepsis acute organ dysfunction status: without acute organ dysfunction Sepsis type: sepsis due to unspecified organism Qualified Code(s): A41.9 - Sepsis, unspecified organism Code(s): A41.9 - Sepsis, unspecified organism Status: Acute Assessment and Plan: Meets SIRS criteria: leukocytosis, acute on chronic kidney failure, and hypotension in the setting of infected right foot wound. - WBC on admission 24.5 now 10.8 on am labs - lactic acid: 1.9 - Continue IV fluids - suspected source: Sepsis secondary to cellulitis/diabetic foot wound - blood cultures drawn on 08/25: NGTD - Wound culture collected 08/27: Pending - Foot XR: No evidence of osteomyelitis on x-ray - Antibiotics: Cefepime and flagyl (2) Cellulitis of right lower extremity: Code(s): L03.115 - Cellulitis of right lower limb Status: Acute Assessment and Plan: The patient presented to the emergency department for evaluation of increasing weakness and worsening right foot wound. - X-ray showed no evidence of osteomyelitis or gas though his LRINEC score is quite high (10) - MRI ordered - He was started on broad-spectrum antibiotics of vancomycin, meropenem and clindamycin (08/25) to cover possible necrotizing fasciitis although clinically that is not evident at this time and he is nontoxic in appearance. - Due to lack of evidence of necrotizing fasciitis will change medications to Cefepime and Flagyl for diabetic foot wound coverage 08/26 - MRSA negative and vancomycin discontinued 08/26. - Surgery was consulted for possible debridement. Due to no s/s of active infection, chronic venous stasis ulcers, local wound care and compression, elevation, would benefit from unna boot if compliant, vascular surgery consult as outpt - Blood cultures 08/25: NGTD - Wound culture collected 08/27: Pending - Eliquis restarted as surgery does not plan for intervention at this timeeliquis - Analgesics as needed (3) Wound of right foot: Code(s): S91.301A - Unspecified open wound, right foot, initial encounter Status: Acute Assessment and Plan: See #2 Wound care consulted (4) Fall: Code(s): W19.XXXA - Unspecified fall, initial encounter Status: Acute Assessment and Plan: Patient sustained a fall after trying to get out of bed and fell between his bed and is wheelchair and struggle to get up and states that he was twisted at a very odd angle. He had to call the fire department to come help get him up off the floor. - Patient is very sore from this encounter - Left hip XR showed mild left hip osteoarthritis - Lumbar back XR revealed mild lumbar spondylosis. - Patient having a lot of muscle spasms, will order Flexeril Q 8 p.r.n. Analgesics as needed. PT and OT ordered for the patient. (5) Acute on chronic kidney failure: Code(s): N17.9 - Acute kidney failure, unspecified; N18.9 - Chronic kidney disease, unspecified Status: Acute Assessment and Plan: Patient presented to the hospital with a BUN and creatinine of 79/3.6. - Patient's baseline creatinine is typically in the low to mid 2s - Patient started on IV fluids - BUN and creatinine improving. Back at baseline. - Monitor daily (6) Electrolyte abnormality: Code(s): E87.8 - Other disorders of electrolyte and fluid balance, not elsewhere classified Status: Acute Assessment and Plan: Patient present to the hospital with a potassium of 2.4, sodium 130, chloride 87, CO2 33. - Patient's potassium was replaced and he was started on normal saline @ 100 cc/hour. Electrolytes remain stable at this time. - Patient on metolazone, spironolactone, and Bumex. This could be causing electrolyte abnormalities. Hold for now. - Electrolytes are improving. - Continue to monitor daily labs. Replace electrolytes as necessary. (7) Chronic congestive heart
[2023-08-28] MEDS: APIXABAN 5 MG TABLET PO ×2 (09:42→21:54)
[2023-08-28] MEDS: TAMSULOSIN HCL 0.4 MG CAPSULE PO (09:42)
[2023-08-28] MEDS: allopurinoL 100 MG TABLET PO (09:43)
[2023-08-28] MEDS: METOPROLOL TARTRATE 50 MG TAB PO ×2 (09:43→21:54)
[2023-08-28] MEDS: EUCERIN CREAM 454 GM JAR 1 APPLIC TOPICAL ×2 (09:43→21:56)
[2023-08-28] MEDS: LORATADINE 10 MG TABLET PO (09:43)
[2023-08-28] MEDS: DOCUSATE SODIUM 100 MG CAPSULE PO ×2 (09:43→21:54)
[2023-08-28] MEDS: HYDROcodone/acetaminophen (*CRX) 5-325 MG TABLET 1 TAB PO ×3 (09:47→21:55)
--- NOTE | 2023-08-28 13:02 | PM.PNGS ---
Progress Note: A&P Assessment and Plan (1) Venous stasis dermatitis of both lower extremities: Code(s): I87.2 - Venous insufficiency (chronic) (peripheral) Status: Acute Assessment and Plan: cont local wound care, compression, no acute surgical indications, would benefit from vascular surgery f/u as outpt Subjective Subjective Date/Time Seen: 08/28/23 13:02 Interval history: no acute issues, some jackie LE heaviness, discomfort Review of Systems Review of Systems: All systems reviewed & are unremarkable except as noted in HPI and below Exam Const: General: cooperative, comfortable, ill appearing and obese Resp: Auscultation: diminished lung sounds Cardio: Rate: regular rate Rhythm: regular rhythm GI: Inspection: normal to inspection GI Palp: No abdominal tenderness and Yes Soft to palpation Extrem: Other: +pitting edema, compression drsg C/D/I Objective Data Vital Signs Vital Signs: Vital Signs - 24 hr 08/27/23 13:57 08/27/23 16:00 08/27/23 16:00 Temperature 36.6 C Pulse Rate 71 73 Respiratory Rate 16 Blood Pressure 118/74 Pulse Oximetry 94 97 Oxygen Delivery Room Air 08/27/23 20:55 08/27/23 21:45 08/27/23 20:00 Temperature 36.1 C L Pulse Rate 84 Respiratory Rate 20 Blood Pressure 104/64 Pulse Oximetry 95 95 Oxygen Delivery CPAP CPAP 08/28/23 00:00 08/28/23 00:20 08/28/23 01:42 Temperature 36.2 C L Pulse Rate 85 76 Respiratory Rate 20 Blood Pressure 130/53 L Pulse Oximetry 97 Oxygen Delivery CPAP 08/28/23 04:00 08/28/23 05:55 08/28/23 08:00 Temperature 37.5 C 36.6 C Pulse Rate 74 83 90 Respiratory Rate 18 18 Blood Pressure 125/43 L 123/55 L Pulse Oximetry 98 94 Oxygen Delivery 08/28/23 09:43 08/28/23 08:00 08/28/23 12:00 Temperature Pulse Rate 90 84 72 Respiratory Rate Blood Pressure Pulse Oximetry Oxygen Delivery Intake/Output Intake/Output: Intake & Output 08/25/23 08/26/23 08/27/23 08/28/23 23:59 23:59 23:59 23:59 Intake Total 1397 2770.0 1472 Output Total 400 1975 2400 Balance 997 795.0 -928 Meds/Results Medications: Active Medications Generic Name Dose Route Start Last Admin Trade Name Freq PRN Reason Stop Dose Admin Acetaminophen 650 mg 08/26/23 14:14 08/27/23 09:36 Acetaminophen 325 Mg Tablet PO 650 mg Q6H PRN Administration Mild Pain (1-3) or Fever Hydrocodone Bitart/Acetaminophen 1 tab 08/27/23 15:01 08/28/23 09:47 Hydrocodone/Acetaminophen (*Crx) 5-325 Mg Tablet PO 1 tab Q6H PRN Administration Pain Rated 4-6 Allopurinol 100 mg 08/27/23 08:00 08/28/23 09:43 Allopurinol 100 Mg Tablet PO 100 mg DAILY@0800 ANGELA Administration Apixaban 5 mg 08/28/23 09:15 08/28/23 09:42 Apixaban 5 Mg Tablet PO 5 mg Q12HR ANGELA Administration Cyclobenzaprine HCl 10 mg 08/27/23 15:01 08/27/23 21:06 Cyclobenzaprine Hcl 10 Mg Tablet PO 10 mg Q8H PRN Administration Muscle Spasm Docusate Sodium 100 mg 08/26/23 21:00 08/28/23 09:43 Docusate Sodium 100 Mg Capsule PO 100 mg Q12H ANGELA Administration Fluticasone Propionate 1 spray 08/26/23 18:10 Fluticasone Propionate 0.05% Na Spr 16 Gm Btl (*Bkc) NASAL DAILY PRN Congestion Gabapentin 300 mg 08/26/23 22:00 08/28/23 05:44 Gabapentin 300 Mg Capsule PO 300 mg Q8HR ANGELA Administration Sodium Chloride 1,000 mls @ 100 mls/hr 08/26/23 14:55 08/28/23 03:51 Normal Saline Iv IV CONT 100 mls/hr .Q10H ANGELA Administration Cefepime HCl 1 gm in 50 mls @ 100 mls/hr 08/27/23 21:00 08/27/23 21:32 Maxipime 1 Gm/Ns 50 Ml IVPB Infused DAILY@2100 ANGELA Infusion Levothyroxine Sodium 200 mcg 08/27/23 06:30 08/28/23 05:44 Levothyroxine Sodium 100 Mcg Tablet PO 200 mcg DAILY@0630 ANGELA Administration Loratadine 10 mg 08/27/23 09:00 08/28/23 09:43 Loratadine 10 Mg Tablet PO 10 mg DAILY ANGELA Administration Metopro
[2023-08-28] MEDS: CYCLOBENZAPRINE HCL 10 MG TABLET PO ×2 (13:07→21:54)
[2023-08-28] MEDS: CEFEPIME 1 GM/NS 50 ML 1 GM/50 ML BAG IVPB (21:55)
[2023-08-29] VITALS (9 sets, daily range): BP systolic 116–151; BP diastolic 60–72; PULSE 62–79; RESP 16–18; TEMP 36.1–36.8; O2SAT 95–98; BMI 10.0
[2023-08-29] MEDS: SODIUM CHLORIDE 0.9% IV 1,000 ML 100 ML IV CONT ×2 (00:45→12:42)
[2023-08-29] MEDS: metroNIDAZOLE 500 MG TABLET PO ×3 (05:42→20:48)
[2023-08-29] MEDS: HYDROcodone/acetaminophen (*CRX) 5-325 MG TABLET 1 TAB PO ×3 (05:42→20:48)
[2023-08-29] MEDS: GABAPENTIN 300 MG CAPSULE PO ×3 (05:43→20:48)
[2023-08-29] MEDS: LEVOTHYROXINE SODIUM 100 MCG TABLET 200 MCG PO (05:43)
--- NOTE | 2023-08-29 07:38 | PM.IMPN ---
Progress Note: A&P Assessment and Plan (1) Sepsis: Qualifiers: Sepsis acute organ dysfunction status: without acute organ dysfunction Sepsis type: sepsis due to unspecified organism Qualified Code(s): A41.9 - Sepsis, unspecified organism Code(s): A41.9 - Sepsis, unspecified organism Status: Acute Assessment and Plan: Meets SIRS criteria: leukocytosis, acute on chronic kidney failure, and hypotension in the setting of infected right foot wound. - WBC on admission 24.5 now 10.8 on am labs - lactic acid: 1.9 - Continue IV fluids - suspected source: Sepsis secondary to cellulitis/diabetic foot wound - blood cultures drawn on 08/25: NGTD - Wound culture collected 08/27: Pending - Foot XR: No evidence of osteomyelitis - Foot MRI: No evidence of osteomyelitis - Antibiotics: Cefepime and Flagyl (2) Cellulitis of right lower extremity: Code(s): L03.115 - Cellulitis of right lower limb Status: Acute Assessment and Plan: The patient presented to the emergency department for evaluation of increasing weakness and worsening right foot wound. - X-ray showed no evidence of osteomyelitis or gas though his LRINEC score is quite high (10) - MRI showed no evidence of osteomyelitis - He was started on broad-spectrum antibiotics of vancomycin, meropenem and clindamycin (08/25) to cover possible necrotizing fasciitis although clinically that is not evident at this time and he is nontoxic in appearance. - Due to lack of evidence of necrotizing fasciitis will change medications to Cefepime and Flagyl for diabetic foot wound coverage 08/26 - MRSA negative and vancomycin discontinued 08/26. - Surgery was consulted for possible debridement. Due to no s/s of active infection, chronic venous stasis ulcers, local wound care and compression, elevation, would benefit from unna boot if compliant, vascular surgery consult as outpt - Blood cultures 08/25: NGTD - Wound culture collected 08/27: Pending - Eliquis restarted as surgery does not plan for intervention at this time - Analgesics as needed (3) Wound of right foot: Code(s): S91.301A - Unspecified open wound, right foot, initial encounter Status: Acute Assessment and Plan: See #2 Wound care consulted (4) Fall: Code(s): W19.XXXA - Unspecified fall, initial encounter Status: Acute Assessment and Plan: Patient sustained a fall after trying to get out of bed and fell between his bed and is wheelchair and struggle to get up and states that he was twisted at a very odd angle. He had to call the fire department to come help get him up off the floor. - Patient is very sore from this encounter - Left hip XR showed mild left hip osteoarthritis - Lumbar back XR revealed mild lumbar spondylosis. - Patient having a lot of muscle spasms, will order Flexeril Q 8 p.r.n. Analgesics as needed. PT and OT ordered for the patient. (5) Acute on chronic kidney failure: Code(s): N17.9 - Acute kidney failure, unspecified; N18.9 - Chronic kidney disease, unspecified Status: Acute Assessment and Plan: Patient presented to the hospital with a BUN and creatinine of 79/3.6. - Patient's baseline creatinine is typically in the low to mid 2s - Patient started on IV fluids - BUN and creatinine improving. Back at baseline. - Monitor daily (6) Electrolyte abnormality: Code(s): E87.8 - Other disorders of electrolyte and fluid balance, not elsewhere classified Status: Acute Assessment and Plan: Patient present to the hospital with a potassium of 2.4, sodium 130, chloride 87, CO2 33. - Patient's potassium was replaced and he was started on normal saline @ 100 cc/hour. Electrolytes remain stable at this time. - Patient on metolazone, spironolactone, and Bumex. This could be causing electrolyte abnormalities. Hold for now. - Electrolytes are improving. - Continue to monitor daily labs. Replace el
[2023-08-29 07:41] LABS: Basophils Percent Auto 0.5 % (0.2-1.2); Eosinophils Absolute Auto 0.3 K/mm3 (0-0.3); Eosinophils Percent Auto 3.2 % (0-4.4); Hematocrit 35.2 % (42.0-52.0); Hemoglobin 10.8 g/dL (14.0-18.0); Immature Granulocyte Absolute 0.06 K/mm3 (0.00-0.031); Immature Granulocyte Percent A 0.7 % (0-0.5); Lymphocytes Absolute Auto 0.34 K/mm3 (0.9-3.2); Lymphocytes Percent Auto 3.9 % (18.3-44.2); Mean Corpuscular HGB Conc 30.7 g/dl (32-36); Mean Corpuscular Volume 94.6 fl (80-100); Mean Platelet Volume 10.4 fl (7.4-10.4); Monocytes Absolute Auto 0.7 K/mm3 (0.1-0.6); Monocytes Percent Auto 7.7 % (2.6-8.5); Neutrophils Absolute Auto 7.2 K/mm3 (1.3-6.7); Platelet Count Result 251 k/mm3 (150-375); Red Blood Count 3.72 M/mm3 (4.6-6.20); Red Cell Distribution Width 14.7 % (11.5-14.5); White Blood Count 8.6 K/mm3 (4.5-10.0)
[2023-08-29 08:06] LABS: Alanine Aminotransferase 17 U/L (6-50); Albumin Level 3.5 g/dL (3.5-5.1); Alkaline Phosphatase 41 U/L (38-126); Anion Gap 7 mmol/L (4-12); Aspartate Amino Transferase 41 U/L (17-59); Bilirubin,Total 0.9 mg/dL (0.2-1.3); Blood Urea Nitrogen 54 mg/dL (9-20); Calcium 8.5 mg/dL (8.4-10.2); Carbon Dioxide 28 mmol/L (22-30); Chloride 104 mmol/L (98-107); Estimated CRCL calculation 55 ml/min; Estimated Glomerular Filt Rate 40; Glucose 107 mg/dL (65-110); Potassium 3.4 mmol/L (3.4-5.0); Sodium 139 mmol/L (137-145)
[2023-08-29] MEDS: TAMSULOSIN HCL 0.4 MG CAPSULE PO (09:23)
[2023-08-29] MEDS: APIXABAN 5 MG TABLET PO ×2 (09:23→20:49)
[2023-08-29] MEDS: DOCUSATE SODIUM 100 MG CAPSULE PO ×2 (09:24→20:48)
[2023-08-29] MEDS: METOPROLOL TARTRATE 50 MG TAB PO ×2 (09:24→20:48)
[2023-08-29] MEDS: allopurinoL 100 MG TABLET PO (09:24)
[2023-08-29] MEDS: EUCERIN CREAM 454 GM JAR 1 APPLIC TOPICAL ×2 (09:24→20:52)
[2023-08-29] MEDS: LORATADINE 10 MG TABLET PO (09:24)
[2023-08-29] MEDS: CEFEPIME 1 GM/NS 50 ML 1 GM/50 ML BAG IVPB ×2 (12:41→20:47)
--- NOTE | 2023-08-29 13:34 | PCOTNOTE ---
Attempted to see pt. for occupational therapy evaluation. Pt. declined to participate on this date, stating he was too tired and has been through too much today . Pt. educated on the benefits of participation in OT services and was offered bariatric recliner for comfortable out of bed activity. Pt. declined again. Nursing aware. Following.
[2023-08-29] MEDS: CYCLOBENZAPRINE HCL 10 MG TABLET PO (20:49)
[2023-08-30] VITALS: BP 131/61; PULSE 65; PULSE 66; RESP 16; TEMP 36.6; O2SAT 97
[2023-08-30 04:00] VITALS: BP 133/74; PULSE 59; PULSE 87; RESP 16; TEMP 36.6; O2SAT 97
[2023-08-30] MEDS: metroNIDAZOLE 500 MG TABLET PO ×2 (05:35→13:35)
[2023-08-30] MEDS: HYDROcodone/acetaminophen (*CRX) 5-325 MG TABLET 1 TAB PO ×2 (05:35→11:52)
[2023-08-30] MEDS: GABAPENTIN 300 MG CAPSULE PO ×2 (05:35→13:35)
[2023-08-30] MEDS: CYCLOBENZAPRINE HCL 10 MG TABLET PO (05:35)
[2023-08-30] MEDS: LEVOTHYROXINE SODIUM 100 MCG TABLET 200 MCG PO (05:35)
[2023-08-30 06:09] LABS: Basophils Absolute Auto 0.1 K/mm3 (0.0-0.1); Basophils Percent Auto 0.7 % (0.2-1.2); Eosinophils Absolute Auto 0.4 K/mm3 (0-0.3); Eosinophils Percent Auto 4.2 % (0-4.4); Hematocrit 36.6 % (42.0-52.0); Immature Granulocyte Absolute 0.08 K/mm3 (0.00-0.031); Lymphocytes Absolute Auto 0.44 K/mm3 (0.9-3.2); Lymphocytes Percent Auto 5.3 % (18.3-44.2); Mean Corpuscular HGB Conc 30.1 g/dl (32-36); Mean Corpuscular Hemoglobin 28.9 pg (26-34); Mean Corpuscular Volume 96.1 fl (80-100); Mean Platelet Volume 10.2 fl (7.4-10.4); Monocytes Absolute Auto 0.7 K/mm3 (0.1-0.6); Monocytes Percent Auto 7.9 % (2.6-8.5); Neutrophils Absolute Auto 6.7 K/mm3 (1.3-6.7); Neutrophils Percent Auto 80.9 % (45.5-73.1); Platelet Count Result 256 k/mm3 (150-375); Red Blood Count 3.81 M/mm3 (4.6-6.20); Red Cell Distribution Width 14.6 % (11.5-14.5); White Blood Count 8.3 K/mm3 (4.5-10.0)
[2023-08-30 06:32] LABS: Alanine Aminotransferase 16 U/L (6-50); Albumin Level 3.4 g/dL (3.5-5.1); Alkaline Phosphatase 40 U/L (38-126); Anion Gap 4 mmol/L (4-12); Aspartate Amino Transferase 31 U/L (17-59); Bilirubin,Total 0.6 mg/dL (0.2-1.3); Blood Urea Nitrogen 39 mg/dL (9-20); Calcium 8.7 mg/dL (8.4-10.2); Carbon Dioxide 30 mmol/L (22-30); Chloride 105 mmol/L (98-107); Estimated CRCL calculation 63 ml/min; Estimated Glomerular Filt Rate 46; Glucose 91 mg/dL (65-110); Potassium 3.5 mmol/L (3.4-5.0); Sodium 139 mmol/L (137-145)
[2023-08-30 08:00] VITALS: BP 137/66; PULSE 64; PULSE 72; RESP 16; TEMP 36.7; O2SAT 96
[2023-08-30 09:04] VITALS: PULSE 66
[2023-08-30] MEDS: allopurinoL 100 MG TABLET PO (09:04)
[2023-08-30] MEDS: METOPROLOL TARTRATE 50 MG TAB PO (09:04)
[2023-08-30] MEDS: APIXABAN 5 MG TABLET PO (09:04)
[2023-08-30] MEDS: TAMSULOSIN HCL 0.4 MG CAPSULE PO (09:04)
[2023-08-30] MEDS: DOCUSATE SODIUM 100 MG CAPSULE PO (09:04)
[2023-08-30] MEDS: LORATADINE 10 MG TABLET PO (09:04)
[2023-08-30] MEDS: CEFEPIME 1 GM/NS 50 ML 1 GM/50 ML BAG IVPB (09:04)
[2023-08-30] MEDS: EUCERIN CREAM 454 GM JAR 1 APPLIC TOPICAL (09:05)
--- NOTE | 2023-08-30 10:19 | PCOTNOTE ---
Attempted to see pt. for occupational therapy evaluation. Pt. declined to participate today due to report of I'm going to rehab today . Pt. educated on importance of participation in activity and expectations of rehab. Pt. aware occupational therapy evaluation my be necessary for acceptance to rehab. Nursing aware. Following.
[2023-08-30] MEDS: SODIUM CHLORIDE 0.9% IV 1,000 ML 100 ML IV CONT ×2 (11:12)
[2023-08-30 11:19] VITALS: BMI 10.0
[2023-08-30 12:00] VITALS: BP 141/66; PULSE 72; PULSE 86; RESP 16; TEMP 36.7; O2SAT 96
--- NOTE | 2023-08-30 14:03 | PM.DS ---
DS: Admitting Diagnosis Discharge Date 08/30/2023 Admitting Diagnosis Sepsis Cellulitis right lower extremity Wound right foot Fall Acute on chronic kidney failure Electrolyte abnormality Chronic CHF Afib HTN Hypothyroidism DS: Discharge Diagnosis Discharge Diagnosis (1) Sepsis: Qualifiers: Sepsis acute organ dysfunction status: without acute organ dysfunction Sepsis type: sepsis due to unspecified organism Qualified Code(s): A41.9 - Sepsis, unspecified organism Code(s): A41.9 - Sepsis, unspecified organism Status: Acute (2) Cellulitis of right lower extremity: Code(s): L03.115 - Cellulitis of right lower limb Status: Acute (3) Wound of right foot: Code(s): S91.301A - Unspecified open wound, right foot, initial encounter Status: Acute (4) Fall: Code(s): W19.XXXA - Unspecified fall, initial encounter Status: Acute (5) Acute on chronic kidney failure: Code(s): N17.9 - Acute kidney failure, unspecified; N18.9 - Chronic kidney disease, unspecified Status: Acute (6) Electrolyte abnormality: Code(s): E87.8 - Other disorders of electrolyte and fluid balance, not elsewhere classified Status: Acute (7) Chronic congestive heart failure: Qualifiers: Heart failure type: unspecified Qualified Code(s): I50.9 - Heart failure, unspecified Code(s): I50.9 - Heart failure, unspecified Status: Chronic (8) Atrial fibrillation: Qualifiers: Atrial fibrillation type: longstanding persistent Qualified Code(s): I48.11 - Longstanding persistent atrial fibrillation Code(s): I48.91 - Unspecified atrial fibrillation Status: Acute (9) Essential (primary) hypertension: Code(s): I10 - Essential (primary) hypertension Status: Acute (10) Hypothyroidism: Qualifiers: Hypothyroidism type: acquired Qualified Code(s): E03.9 - Hypothyroidism, unspecified Code(s): E03.9 - Hypothyroidism, unspecified Status: Acute DS: Summary Hospital Course Reason for hospitalization: Sepsis Cellulitis right lower extremity Wound right foot Fall Acute on chronic kidney failure Electrolyte abnormality Chronic CHF Afib HTN Hypothyroidism Hospital Course: 73-year-old male with hypertension, dyslipidemia, heart failure with preserved ejection fraction atrial fibrillation on chronic anticoagulation, hypothyroidism, sleep apnea, GERD, chronic kidney disease, and chronic lymphedema of the lower extremities who presented to the emergency department via for evaluation after a mechanical ground level fall.?He also reports a worsening right foot wound. Wound is chronic and per patient has been present since April. Patient met SIRS requirements with leukocytosis, acute on chronic kidney failure, and hypotension in the setting of infected right foot wound on admission. He was started on IV antibiotics at that time. Imaging showed no evidence of osteomyelitis. Surgery was consulted for possible debridement. Due to no s/s of active infection, chronic venous stasis ulcers, local wound care and compression, elevation, would benefit from unna boot if compliant, vascular surgery consult as outpatient. Wound culture grew pseudomonas. At time of discharge patient was no longer septic and kidney function was back to baseline. Discussed antibiotics with ID pharmacy and patient discharged on Levaquin and Flagyl. He is to follow up with PCP in 1 week. Vascular surgery information given with discharge packet. Patient discharged in stable condition to [facility]. He will complete his antibiotics as prescribed and follow up with his PCP in 1 week. Wound care will continue at [facility]. Vascular surgery information given at discharge. Status at Discharge Functional status at discharge: wheelchair bound Time Spent with Patient Time attestation: Total time spent providing and/or coordinating discharge services: Time spent: Greater t
[2023-08-30 16:00] VITALS: BP 131/76; PULSE 78; RESP 16; TEMP 36.7; O2SAT 97
== END 2023-08-30 18:05 | DRG 872 ==
LOC: ANHED 13:00 → ANH3MEDSUR 13:22
PROVIDERS: Internal Medicine Critical Care Medicine; Physician Assistant; Student in an Organized Health Care Education/Training Program; Admitting Provider Internal Medicine; Emergency Provider Emergency Medicine; PCP Family Medicine; Visit Provider Internal Medicine
DX: A41.9 Sepsis, unspecified organism (principal); I13.0 Hypertensive heart and chronic kidney disease with heart failure and stage 1 through stage 4 chronic kidney disease, or unspecified chronic kidney disease; I50.32 Chronic diastolic (congestive) heart failure; N17.9 Acute kidney failure, unspecified; L03.115 Cellulitis of right lower limb; I48.11 Longstanding persistent atrial fibrillation; R23.8 Other skin changes; B96.5 Pseudomonas (aeruginosa) (mallei) (pseudomallei) as the cause of diseases classified elsewhere; T14.8XXD Other injury of unspecified body region, subsequent encounter; W19.XXXA Unspecified fall, initial encounter; E78.5 Hyperlipidemia, unspecified; E03.9 Hypothyroidism, unspecified; G47.33 Obstructive sleep apnea (adult) (pediatric); I89.0 Lymphedema, not elsewhere classified; I87.2 Venous insufficiency (chronic) (peripheral); I95.9 Hypotension, unspecified; K21.9 Gastro-esophageal reflux disease without esophagitis; M10.9 Gout, unspecified; N18.30 Chronic kidney disease, stage 3 unspecified; Z79.01 Long term (current) use of anticoagulants; Z99.3 Dependence on wheelchair; Z90.49 Acquired absence of other specified parts of digestive tract; Z87.891 Personal history of nicotine dependence
CPT/HCPCS: 36415; 71046; 72020; 72100; 73502; 73630; 73720; 80048; 80053; 81003; 83036; 83605; 83735; 84132; 85025; 85027; 86140; 87040; 87070; 87077; 87186; 87205; 93005; 97162; 97166; 97530; 99285; A9270; A9577; J0692; J2185; J3370; J7030; J7040

== ENCOUNTER 2023-10-10 07:07 | Outpatient (RCR) | payer MEDICARE, OTHER, SELFPAY ==
[2023-07-23 12:30] VITALS: BMI 55.5
== END 2023-10-21 23:59 | disposition home or self-care (01) ==
LOC: ANHWOC 07:07
PROVIDERS: PCP Family Medicine; Visit Provider Podiatrist Foot & Ankle Surgery
DX: L97.312 Non-pressure chronic ulcer of right ankle with fat layer exposed (principal)
CPT/HCPCS: 29581; 99214; A9270; G0463

== ENCOUNTER 2023-10-18 11:05 | Outpatient (CLI) | payer MEDICARE, OTHER, SELFPAY ==
[2023-10-18 19:00] LABS: Creatinine Urine 56.7 mg/dL; Total Protein Urine Random 10 mg/dL; Ur Ttl Prot Creatinine Ratio 0.18 mg/mg (0-0.20)
[2023-10-18 19:11] LABS: Parathyroid Intact 299.2 pg/mL (7.5-53.5)
[2023-10-18 19:12] LABS: Albumin Level 4.3 g/dL (3.5-5.1); Anion Gap 14 mmol/L (4-12); Blood Urea Nitrogen 53 mg/dL (9-20); Carbon Dioxide 30 mmol/L (22-30); Chloride 89 mmol/L (98-107); Estimated Glomerular Filt Rate 33; Glucose 134 mg/dL (65-110); Phosphorus 3.8 mg/dL (2.5-4.5); Potassium 3.5 mmol/L (3.4-5.0); Sodium 133 mmol/L (137-145)
[2023-10-18 19:24] LABS: Vitamin D 25 Hydroxy 33.3 ng/mL
== END 2023-10-18 11:06 | disposition home or self-care (01) ==
LOC: ANHGOSHLAB 11:07
PROVIDERS: PCP Family Medicine; Visit Provider Internal Medicine Nephrology
DX: E55.9 Vitamin D deficiency, unspecified (principal); N25.81 Secondary hyperparathyroidism of renal origin; I12.9 Hypertensive chronic kidney disease with stage 1 through stage 4 chronic kidney disease, or unspecified chronic kidney disease; N18.32 Chronic kidney disease, stage 3b
CPT/HCPCS: 36415; 80069; 82306; 82570; 83970; 84156

== ENCOUNTER 2023-10-30 11:56 | Outpatient (RCR) | payer MEDICARE, OTHER, SELFPAY ==
--- NOTE | 2023-11-27 12:39 | PCWOUND ---
WOCN NOTE Patient did not show up for appointment.
== END 2024-01-28 23:59 | disposition home or self-care (01) ==
LOC: ANHWOC 11:56
PROVIDERS: PCP Family Medicine; Visit Provider Podiatrist Foot & Ankle Surgery
DX: L97.312 Non-pressure chronic ulcer of right ankle with fat layer exposed (principal)
CPT/HCPCS: 99214; A9270; G0463

== ENCOUNTER 2023-11-09 12:18 | Inpatient (IN) | payer MEDICARE, OTHER, SELFPAY ==
[2023-11-09] VITALS (10 sets, daily range): BP systolic 116–156; BP diastolic 53–82; PULSE 74–103; RESP 13–23; TEMP 37.4–37.6; O2SAT 95–98; BMI 44.9
--- NOTE | ~2023-11-09 | XR_ITS ---
EXAMINATION: XR chest 2V DATE: 11/09/2023 16:08 INDICATION: Chills. Cough. Weakness. TECHNIQUE: Frontal and lateral views of the chest were obtained. COMPARISON: Chest 2 views 08/26/2023 FINDINGS: There is mild atelectasis at left lung base. No pleural effusion or pneumothorax. The heart size is normal. Calcified mediastinal lymph nodes are consistent with old granulomatous disease. IMPRESSION: 1. Mild atelectasis at left lung base. Reviewed, dictated and finalized at location E.
--- NOTE | ~2023-11-09 | XR_ITS ---
EXAMINATION: XR chest 1V portable Exam Date/Time: 11/12/2023 14:00 CDT HISTORY: shortness of breath Comparison: 11/09/2023. RESULT: Lines, tubes, and devices: None. Lungs and pleura: Clear. Cardiomediastinal silhouette: Stable. Other: No acute osseous or upper abdominal finding. IMPRESSION: No acute cardiopulmonary process. Reviewed, dictated and finalized at location K.
--- NOTE | 2023-11-09 15:34 | ED.FEVER ---
HPI - Fever General Chief Complaint: Fever Stated Complaint: WEAKNESS Time Seen by Provider: 11/09/23 15:30 Source: patient and EMS Mode of arrival: EMS Limitations: no limitations History of Present Illness HPI Narrative: Patient presents with generalized weakness and shaking as well as intermittent fevers and chills in addition to a dry cough. States the weakness constant to slide out his chair/bed. He denies any shortness of breath or history of pneumonia that he can recall. No nausea, vomiting or diarrhea. He does have 1 or 2 more doses of an antibiotic which she has been taking for infection of his right lower extremity for which he sees wound care. EMS reported a temperature of 102.7? F in the field. Related Data Home Medications Medication Instructions Recorded Confirmed loratadine 10 mg tablet (Claritin) 10 mg PO DAILY 07/12/20 11/09/23 polyethylene glycol 3350 17 17 g PO DAILY PRN Constipation 06/02/21 11/09/23 gram/dose oral powder (Miralax) acetazolamide 250 mg tablet 250 mg PO DAILY 11/19/22 11/09/23 fluticasone propionate 50 1 spray intranasal DAILY PRN 11/19/22 11/09/23 mcg/actuation nasal Congestion spray,suspension (Flonase Allergy Relief) minoxidil 10 mg tablet 10 mg PO DAILY 11/19/22 11/09/23 acetaminophen 325 mg tablet 975 mg PO Q6H PRN Pain (Scale 08/30/23 11/09/23 Score 1-3) levothyroxine 200 mcg tablet 200 mcg PO DAILY 08/30/23 11/09/23 gabapentin 300 mg capsule 300 mg PO TID 11/09/23 11/09/23 Allergies Allergy/AdvReac Type Severity Reaction Status Date / Time Sulfa (Sulfonamide Allergy Mild Rash Verified 11/09/23 20:17 Antibiotics) Penicillins Allergy Unknown SWELLING Verified 11/09/23 20:17 codeine AdvReac Mild N/V Verified 11/09/23 20:17 hydrocodone AdvReac Mild N/V Verified 11/09/23 20:17 tramadol AdvReac Mild Nausea Verified 11/09/23 20:17 [facility] Past Medical History Medical History (Updated 11/11/23 @ 07:37 by Fabiola Valdivia MD) Atrial fibrillation Chronic acquired lymphedema Chronic anemia Chronic congestive heart failure Echocardiogram in May 2021 was technically difficult and showed normal LV systolic function with an EF of 60 to 65%, severely enlarged RV chamber with moderate to severely reduced RV systolic function, severe biatrial enlargement, and moderate pulmonary hypertension. Chronic kidney disease Chronic low back pain Chronic venous insufficiency Dyslipidemia Environmental allergies Essential (primary) hypertension GERD without esophagitis Gout Hypothyroidism Lymphedema of both lower extremities Morbid obesity with body mass index (BMI) of 40.0 or higher Neuropathic pain Obstructive sleep apnea Ocular rosacea Peripheral polyneuropathy Rosacea Sepsis Surgical History Surgical History H/O eye surgery (~2005) [id number] [facility] History of carpal tunnel release History of cholecystectomy (2008) History of discectomy (2012) History of foot surgery Left Foot History of rotator cuff surgery Bilateral. History of thoracic surgery Pericardial effusion s/p pericardial window thought secondary to minoxidil, in 2010 at [facility]. Family History Family History Father Cardiovascular disease Grandparent Cancer Mother COPD (chronic obstructive pulmonary disease) Social History Social History (Updated 11/09/23 @ 19:40 by Carie Pereyra PA-C) Social History: Surrogate medical decision maker: Shyla Hurst, daughter. Code status: Full code. Smoking packs per day: 2 Smoking cigarettes per day: 40.0 Years smoked: 18 Smoking pack-years: 36.00 Smoking status: Former smoker Tobacco type: cigarettes Second hand tobacco smoke exposure: No Additional smoking assessment comments: 1978 Alcohol intake: never Drinks per week: 14 Alcohol use details: One beer daily. Substance use: never Substance
[2023-11-09] MEDS: SODIUM CHLORIDE 0.9% IV 1,000 ML 999 ML IV CONT (16:12)
[2023-11-09 16:35] LABS: Basophils Absolute Auto 0.1 K/mm3 (0.0-0.1); Basophils Percent Auto 0.3 % (0.2-1.2); Eosinophils Percent Auto 0.1 % (0-4.4); Hematocrit 42.5 % (42.0-52.0); Hemoglobin 13.3 g/dL (14.0-18.0); Immature Granulocyte Absolute 0.11 K/mm3 (0.00-0.031); Immature Granulocyte Percent A 0.6 % (0-0.5); Lymphocytes Absolute Auto 0.37 K/mm3 (0.9-3.2); Lymphocytes Percent Auto 2.1 % (18.3-44.2); Mean Corpuscular HGB Conc 31.3 g/dl (32-36); Mean Corpuscular Volume 92.6 fl (80-100); Mean Platelet Volume 9.9 fl (7.4-10.4); Monocytes Absolute Auto 0.8 K/mm3 (0.1-0.6); Monocytes Percent Auto 4.4 % (2.6-8.5); Neutrophils Absolute Auto 16.3 K/mm3 (1.3-6.7); Neutrophils Percent Auto 92.5 % (45.5-73.1); Platelet Count Result 263 k/mm3 (150-375); Red Blood Count 4.59 M/mm3 (4.6-6.20); Red Cell Distribution Width 15.5 % (11.5-14.5); White Blood Count 17.6 K/mm3 (4.5-10.0)
[2023-11-09 16:43] LABS: Creatine Kinase 345 U/L (55-170)
[2023-11-09 16:52] LABS: Alanine Aminotransferase 13 U/L (6-50); Albumin Level 4.1 g/dL (3.5-5.1); Alkaline Phosphatase 43 U/L (38-126); Anion Gap 16 mmol/L (4-12); Aspartate Amino Transferase 24 U/L (17-59); Bilirubin,Total 0.9 mg/dL (0.2-1.3); Blood Urea Nitrogen 51 mg/dL (9-20); Calcium 8.4 mg/dL (8.4-10.2); Carbon Dioxide 26 mmol/L (22-30); Chloride 94 mmol/L (98-107); Estimated CRCL calculation 41 ml/min; Estimated Glomerular Filt Rate 31; Glucose 124 mg/dL (65-110); Magnesium 2.2 mg/dL (1.6-2.3); Potassium 3.4 mmol/L (3.4-5.0); Sodium 136 mmol/L (137-145)
[2023-11-09 17:10] LABS: Influenza A QL RT-PCR Negative (Negative); Influenza B QL RT-PCR Negative (Negative); RSV RNA, RT-PCR Negative (Negative); SARS-CoV-2 RNA PCR Negative (Negative)
--- NOTE | 2023-11-09 19:09 | PC.NURSE ---
RN spoke with Johanna RN from ER. RN stated ER doctor is aware of sepsis bullseye. This RN charted it off.
--- NOTE | 2023-11-09 19:35 | PM.IMHP ---
H&P: HPI History of Present Illness Date/Time: 11/09/23 19:35 Chief Complaint: Weakness and chills. Narrative: This is a very pleasant 73-year-old male with hypertension, dyslipidemia, heart failure with preserved ejection fraction atrial fibrillation on chronic anticoagulation, hypothyroidism, sleep apnea, GERD, chronic kidney disease, and chronic lymphedema of the lower extremities who presented to the emergency department via EMS from home with complaints of weakness and chills. He has been wheelchair bound following a back injury and surgery and uses a motorized scooter at home. He has been able to stand and pivot to transfer however today he was very weak when he awoke and he crumpled to the floor when attempting to transfer. He called EMS for lift assist and on their arrival his temperature was 102.7? F. With further questioning he reports having an increase in pain in his right lower leg for couple of weeks for which he has been taking extra doses of gabapentin, mild but nonproductive cough which is not necessarily unusual for him, chills, and a poor appetite. He has a chronic right foot infection which is wrapped and he is not certain if it is worse than usual. He denies headache, neck ache, sinus congestion, sore throat, chest pain, shortness of breath, vomiting, diarrhea, and dysuria. In the ED: Vital signs were stable on arrival. Labs are significant for WBC count of 17.6, hemoglobin 13.3, sodium 136, chloride 94, BUN 51, creatinine 2.10, glucose 124, total CK 345. Urinalysis was unremarkable. He tested negative for influenza, RSV, and COVID. Chest x-ray showed mild atelectasis at the left lung base. He was given azithromycin 500 mg and ceftriaxone 1 g for possible developing pneumonia and is being admitted in this setting. Review of Systems Review of Systems: 12 systems were reviewed and are negative except for as per HPI. [facility] Past Medical History Medical History (Updated 11/09/23 @ 19:40 by Carie Pereyra PA-C) Atrial fibrillation Chronic acquired lymphedema Chronic anemia Chronic congestive heart failure Echocardiogram in May 2021 was technically difficult and showed normal LV systolic function with an EF of 60 to 65%, severely enlarged RV chamber with moderate to severely reduced RV systolic function, severe biatrial enlargement, and moderate pulmonary hypertension. Chronic kidney disease Chronic low back pain Chronic venous insufficiency Dyslipidemia Environmental allergies Essential (primary) hypertension GERD without esophagitis Gout Hypothyroidism Lymphedema of both lower extremities Morbid obesity with body mass index (BMI) of 40.0 or higher Neuropathic pain Obstructive sleep apnea Ocular rosacea Peripheral polyneuropathy Rosacea Sepsis Surgical History Surgical History H/O eye surgery (~2006) [id number] [facility] History of carpal tunnel release History of cholecystectomy (2008) History of discectomy (2012) History of foot surgery Left Foot History of rotator cuff surgery Bilateral. History of thoracic surgery Pericardial effusion s/p pericardial window thought secondary to minoxidil, in 2010 at [facility]. Family History Family History Father Cardiovascular disease Grandparent Cancer Mother COPD (chronic obstructive pulmonary disease) Social History Social History (Updated 11/09/23 @ 19:40 by Carie Pereyra PA-C) Social History: Surrogate medical decision maker: Shyla Hurst, daughter. Code status: Full code. Smoking packs per day: 2 Smoking cigarettes per day: 40.0 Years smoked: 18 Smoking pack-years: 36.00 Smoking status: Former smoker Tobacco type: cigarettes Second hand tobacco smoke exposure: No Additional smoking assessment comments: 1978 Alcohol intake: never Drinks per week: 14 Alcohol use details: One beer daily.
--- NOTE | 2023-11-09 19:39 | ADMGEN ---
This patient, Irwin Cyr Jr., was admitted to Medical Room 342-01. Patient/family oriented to hospital policies and general routines including ID bracelet, bed and alarms, visiting hours, pain management, procedures, bathroom and other care routines, personal items, smoking policy, room service/diet, and visiting hours. Information on how to activate the Rapid Response Team has been discussed. Patient/Family are encouraged to report perceived risks to care and to ask questions if they do not understand what they are told or what they should do.
[2023-11-09] MEDS: AZITHROMYCIN 500 MG/NS 250 ML 500 MG/250 ML BAG 250 MG IVPB (20:00)
[2023-11-09] MEDS: oxyCODONE/ACETAMINOPHEN (*CRX) 5-325 MG TABLET 1 TABLET PO (20:37)
[2023-11-09 20:56] LABS: Add Urine Microscopic? YES; Appearance Urine Clear (Clear); Bacteria Urine None Seen /hpf; Bilirubin Urine Negative (Negative); Blood Urine Negative (Negative); Color Urine Yellow (Yellow); Glucose Urine UA Negative (Negative); Ketones Urine Negative (Negative); Leukocyte Esterase Ur Negative LEU/UL (Negative); Need Manual Microscopic Reviewed; Nitrate Urine Negative (Negative); Non Pathogenic Casts 0-2; Protein Urine Trace mg/dL (Negative); RBC Urine 0-2 /hpf (0-2); Specific Grav Ur 1.013 (1.001-1.035); Squamous Epithelial Cell Urine None Seen /hpf (Few); WBC Urine 0-5 /hpf (0-3)
[2023-11-09] MEDS: METOPROLOL TARTRATE 50 MG TAB PO (23:45)
[2023-11-09] MEDS: APIXABAN 5 MG TABLET PO (23:45)
[2023-11-09] MEDS: VANCOMYCIN 1,500 MG/NS 500 ML 1,500 MG/500 ML BAG 250 MG IVPB (23:46)
[2023-11-09] MEDS: CEFEPIME 1 GM/NS 50 ML 1 GM/50 ML BAG IVPB (23:47)
[2023-11-10] MEDS: LEVOTHYROXINE SODIUM 100 MCG TABLET 200 MCG PO (05:15)
[2023-11-10] MEDS: oxyCODONE/ACETAMINOPHEN (*CRX) 5-325 MG TABLET 1 TABLET PO ×3 (05:22→19:17)
[2023-11-10 05:36] LABS: Anion Gap 11 mmol/L (4-12); Blood Urea Nitrogen 54 mg/dL (9-20); Calcium 8.8 mg/dL (8.4-10.2); Carbon Dioxide 32 mmol/L (22-30); Chloride 93 mmol/L (98-107); Estimated CRCL calculation 42 ml/min; Estimated Glomerular Filt Rate 29; Glucose 131 mg/dL (65-110); Magnesium 2.6 mg/dL (1.6-2.3); Potassium 3.4 mmol/L (3.4-5.0); Sodium 136 mmol/L (137-145)
[2023-11-10 06:00] VITALS: BP 144/81; PULSE 89; RESP 20; TEMP 36.8; O2SAT 98
[2023-11-10 06:15] LABS: Hematocrit 33.1 % (42.0-52.0); Mean Corpuscular HGB Conc 30.2 g/dl (32-36); Mean Corpuscular Hemoglobin 28.5 pg (26-34); Mean Corpuscular Volume 94.3 fl (80-100); Mean Platelet Volume 9.7 fl (7.4-10.4); Platelet Count Result 267 k/mm3 (150-375); Red Blood Count 3.51 M/mm3 (4.6-6.20); Red Cell Distribution Width 15.3 % (11.5-14.5); White Blood Count 13.9 K/mm3 (4.5-10.0)
--- NOTE | 2023-11-10 07:59 | PM.IMPN ---
Progress Note: A&P Assessment and Plan (1) Sepsis: Qualifiers: Sepsis acute organ dysfunction status: without acute organ dysfunction Sepsis type: sepsis due to unspecified organism Qualified Code(s): A41.9 - Sepsis, unspecified organism Code(s): A41.9 - Sepsis, unspecified organism Status: Acute Assessment and Plan: According to patient he had a fever of 102.7 per EMS. He was tachycardic on arrival to the ED with a HR 103 bpm. Presumed infection with right lower leg cellulitis vs pneumonia Leukocytosis 17.6 Blood cultures drawn on arrival to medical floor, no lactic drawn, procalcitonin ordered Blood pressures are stable. He received 1 L fluid bolus in the ED. Started on broad spectrum antibiotics with Cefepime and Vancomycin Upper respiratory panel was negative (2) Cellulitis of right lower leg: Code(s): L03.115 - Cellulitis of right lower limb Status: Resolved Assessment and Plan: Right foot with erythema, warmth, and purulent drainage. Concern for Pseudomonas with faint green debris to nail bed. Chronic wound since April 2023. Patient was recently seen in July of this year with similar presentation and was treated for cellulitis. He follows with Wound Care here at [place]. Last visit was 10/29 and while his wound has increased drainage it does not appear that different from recent photos. WBC 17.7 on arrival. He had a reported temperature of 102.7 per EMS. Wound care has been consulted and recommendations are appreciated Empirically started on Cefepime and Vancomycin Wound culture ordered. Previous culture from 08/2023 grew pseudomonas. Drainage looks questionable for recurrence. Wound care daily as ordered While he does have pain to his right lower leg there is no increased swelling to raise suspicion for possible DVT. He also is anticoagulated on Eliquis and coags reflect this. (3) Chronic kidney disease: Code(s): N18.9 - Chronic kidney disease, unspecified Status: Acute Assessment and Plan: Baseline creatinine runs approximately 2.0. He follows with Dr Bender. Cr 2.2 this morning Monitor labs daily Renally dose medications (4) Chronic congestive heart failure: Qualifiers: Heart failure type: unspecified Qualified Code(s): I50.9 - Heart failure, unspecified Code(s): I50.9 - Heart failure, unspecified Status: Chronic Assessment and Plan: ECHO from 04/2022 shows LV systolic function normal with EF 65-70% and LV diastolic dysfunction grade 1, RV with mild systolic dysfunction. Home medications include Metoprolol tartrate 50 mg BID, Minoxidil 10 mg daily, Metolazone 5 mg 4x a week, spironolactone 25 mg daily. appears euvolemic home medications restarted Plan DVT prophylaxis: Eliquis GI prophylaxis: N/A Glycemic control: N/A Code Status: FULL CODE Disposition: 73 year old male who presents from home after falling with febrile illness, tachycardia, and leukocytosis. He has a chronic right lower extremity wound which appears to have increased drainage. The patient reports increased pain, erythema, and warmth over the last week. He also has shortness of breath at rest with a productive cough. He is being treated with IV antibiotics Cefepime and Vancomycin. Wound care will be consulted tomorrow. PT/OT have been ordered. Medication reconciliation obtained via the following: Nurse completed on admission The file time of this note does not necessarily represent the time the patient was seen. Advance Care Plan I have confirmed that the patient's Advanced Care Plan is present, code status is documented, or surrogate decision maker is listed in patient medical record.: Yes Medication Reconciliation I have u
[2023-11-10 08:40] VITALS: PULSE 94
[2023-11-10] MEDS: minoxidiL 10 MG TABLET PO (08:40)
[2023-11-10] MEDS: LORATADINE 10 MG TABLET PO (08:40)
[2023-11-10] MEDS: SPIRONOLACTONE 25 MG TABLET PO (08:40)
[2023-11-10] MEDS: GABAPENTIN 300 MG CAPSULE PO ×3 (08:40→17:32)
[2023-11-10] MEDS: APIXABAN 5 MG TABLET PO ×2 (08:40→20:18)
[2023-11-10] MEDS: TAMSULOSIN HCL 0.4 MG CAPSULE PO (08:40)
[2023-11-10] MEDS: EUCERIN CREAM 120 GM JAR 1 APPLIC TOPICAL ×2 (08:40→17:32)
[2023-11-10] MEDS: METOPROLOL TARTRATE 50 MG TAB PO ×2 (08:40→20:18)
[2023-11-10] MEDS: allopurinoL 100 MG TABLET PO (08:40)
[2023-11-10] MEDS: acetaZOLAMIDE TAB 250 MG TABLET PO (08:40)
[2023-11-10] MEDS: DOCUSATE SODIUM 100 MG CAPSULE PO ×2 (08:40→20:18)
[2023-11-10] MEDS: FAMOTIDINE 20 MG TABLET PO (08:40)
[2023-11-10] MEDS: CEFEPIME 1 GM/NS 50 ML 1 GM/50 ML BAG IVPB ×2 (12:18→23:15)
[2023-11-10 14:00] VITALS: BP 138/67; PULSE 93; RESP 16; TEMP 36.8; O2SAT 97
[2023-11-10 15:20] LABS: Procalcitonin 0.5 ng/mL
[2023-11-10 20:10] LABS: Glucose Point of Care 140 mg/dl (65-105)
[2023-11-10 20:29] VITALS: BP 151/86; PULSE 95; RESP 20; TEMP 37.2; O2SAT 97
[2023-11-10] MEDS: VANCOMYCIN 1,500 MG/NS 500 ML 1,500 MG/500 ML BAG 250 MG IVPB (23:16)
[2023-11-11] VITALS (8 sets, daily range): BP systolic 123–152; BP diastolic 61–69; PULSE 80–99; RESP 18–20; TEMP 36.2–36.9; O2SAT 93–97
[2023-11-11 05:36] LABS: Basophils Absolute Auto 0.1 K/mm3 (0.0-0.1); Basophils Percent Auto 0.6 % (0.2-1.2); Eosinophils Absolute Auto 0.6 K/mm3 (0-0.3); Eosinophils Percent Auto 5.1 % (0-4.4); Hematocrit 31.8 % (42.0-52.0); Hemoglobin 9.7 g/dL (14.0-18.0); Immature Granulocyte Absolute 0.11 K/mm3 (0.00-0.031); Lymphocytes Absolute Auto 0.47 K/mm3 (0.9-3.2); Lymphocytes Percent Auto 4.2 % (18.3-44.2); Mean Corpuscular HGB Conc 30.5 g/dl (32-36); Mean Corpuscular Hemoglobin 28.8 pg (26-34); Mean Corpuscular Volume 94.4 fl (80-100); Mean Platelet Volume 10.1 fl (7.4-10.4); Monocytes Percent Auto 8.6 % (2.6-8.5); Neutrophils Absolute Auto 8.9 K/mm3 (1.3-6.7); Neutrophils Percent Auto 80.5 % (45.5-73.1); Platelet Count Result 238 k/mm3 (150-375); Red Blood Count 3.37 M/mm3 (4.6-6.20); Red Cell Distribution Width 15.2 % (11.5-14.5); White Blood Count 11.1 K/mm3 (4.5-10.0)
[2023-11-11 05:49] LABS: Alanine Aminotransferase 14 U/L (6-50); Albumin Level 3.6 g/dL (3.5-5.1); Alkaline Phosphatase 42 U/L (38-126); Anion Gap 11 mmol/L (4-12); Aspartate Amino Transferase 24 U/L (17-59); Bilirubin,Total 0.7 mg/dL (0.2-1.3); Blood Urea Nitrogen 46 mg/dL (9-20); Calcium 8.5 mg/dL (8.4-10.2); Carbon Dioxide 29 mmol/L (22-30); Chloride 95 mmol/L (98-107); Estimated CRCL calculation 51 ml/min; Estimated Glomerular Filt Rate 37; Glucose 127 mg/dL (65-110); Potassium 3.4 mmol/L (3.4-5.0); Sodium 135 mmol/L (137-145)
[2023-11-11] MEDS: oxyCODONE/ACETAMINOPHEN (*CRX) 5-325 MG TABLET 1 TABLET PO ×2 (06:23→19:11)
[2023-11-11] MEDS: LEVOTHYROXINE SODIUM 100 MCG TABLET 200 MCG PO (06:23)
--- NOTE | 2023-11-11 08:41 | PM.IMPN ---
Progress Note: A&P Assessment and Plan (1) Sepsis: Qualifiers: Sepsis acute organ dysfunction status: without acute organ dysfunction Sepsis type: sepsis due to unspecified organism Qualified Code(s): A41.9 - Sepsis, unspecified organism Code(s): A41.9 - Sepsis, unspecified organism Status: Acute Assessment and Plan: According to patient he had a fever of 102.7 per EMS. He was tachycardic on arrival to the ED with a HR 103 bpm. Presumed infection with right lower leg cellulitis vs pneumonia Leukocytosis 17.6-->13.9-->11.1 Blood cultures no growth to date, no lactic drawn, procalcitonin 0.5 Blood pressures are stable. He received 1 L fluid bolus in the ED. Started on broad spectrum antibiotics with Cefepime and Vancomycin Upper respiratory panel was negative (2) Cellulitis of right lower leg: Code(s): L03.115 - Cellulitis of right lower limb Status: Resolved Assessment and Plan: Right foot with erythema, warmth, and purulent drainage. Concern for Pseudomonas with faint green debris to nail bed. Chronic wound since April 2023. Patient was recently seen in July of this year with similar presentation and was treated for cellulitis. He follows with Wound Care here at [place]. Last visit was 10/29 and while his wound has increased drainage it does not appear that different from recent photos. WBC 17.7 on arrival. He had a reported temperature of 102.7 per EMS. Wound care has been consulted and recommendations are appreciated Empirically started on Cefepime and Vancomycin. Wound culture negative. Wound care does not feel at this wound looks infected. Stopping vancomycin. Wound culture shows no organism. Previous culture from 08/2023 grew pseudomonas. Wound care daily as ordered While he does have pain to his right lower leg there is no increased swelling to raise suspicion for possible DVT. He also is anticoagulated on Eliquis and coags reflect this. (3) Chronic kidney disease: Code(s): N18.9 - Chronic kidney disease, unspecified Status: Acute Assessment and Plan: Baseline creatinine runs approximately 2.0. He follows with Dr Bender. Cr 2.2-->1.80 Monitor labs daily Renally dose medications (4) Chronic congestive heart failure: Qualifiers: Heart failure type: unspecified Qualified Code(s): I50.9 - Heart failure, unspecified Code(s): I50.9 - Heart failure, unspecified Status: Chronic Assessment and Plan: ECHO from 04/2022 shows LV systolic function normal with EF 65-70% and LV diastolic dysfunction grade 1, RV with mild systolic dysfunction. Home medications include Metoprolol tartrate 50 mg BID, Minoxidil 10 mg daily, Metolazone 5 mg 4x a week, spironolactone 25 mg daily. appears euvolemic home medications restarted Plan DVT prophylaxis: Eliquis GI prophylaxis: N/A Glycemic control: N/A Code Status: FULL CODE Disposition: 73 year old male who presents from home after falling with febrile illness, tachycardia, and leukocytosis. He has a chronic right lower extremity wound which appears to have increased drainage. The patient reports increased pain, erythema, and warmth over the last week. He also has shortness of breath at rest with a productive cough. He is being treated with IV antibiotics Cefepime. Medication reconciliation obtained via the following: Nurse completed on admission The file time of this note does not necessarily represent the time the patient was seen. Advance Care Plan I have confirmed that the patient's Advanced Care Plan is present, code status is documented, or surrogate decision maker is listed in patient medical record.: Yes Medication Reconciliation I have utilized all available r
[2023-11-11] MEDS: APIXABAN 5 MG TABLET PO ×2 (08:42→20:38)
[2023-11-11] MEDS: METOPROLOL TARTRATE 50 MG TAB PO ×2 (08:42→20:37)
[2023-11-11] MEDS: TAMSULOSIN HCL 0.4 MG CAPSULE PO (08:42)
[2023-11-11] MEDS: FAMOTIDINE 20 MG TABLET PO (08:42)
[2023-11-11] MEDS: allopurinoL 100 MG TABLET PO (08:43)
[2023-11-11] MEDS: acetaZOLAMIDE TAB 250 MG TABLET PO (08:43)
[2023-11-11] MEDS: LORATADINE 10 MG TABLET PO (08:43)
[2023-11-11] MEDS: minoxidiL 10 MG TABLET PO (08:43)
[2023-11-11] MEDS: EUCERIN CREAM 120 GM JAR 1 APPLIC TOPICAL (08:43)
[2023-11-11] MEDS: DOCUSATE SODIUM 100 MG CAPSULE PO ×2 (08:43→20:38)
[2023-11-11] MEDS: SPIRONOLACTONE 25 MG TABLET PO (08:43)
[2023-11-11] MEDS: GABAPENTIN 300 MG CAPSULE PO ×3 (08:43→18:07)
[2023-11-11] MEDS: metOLazone 5 MG TABLET PO (08:45)
[2023-11-11] MEDS: calcitrioL 0.25 MCG CAPSULE PO (08:45)
[2023-11-11] MEDS: CEFEPIME 1 GM/NS 50 ML 1 GM/50 ML BAG IVPB (11:54)
[2023-11-11] MEDS: LACTIC ACID 12% LOTION 225 BTL 1 APPLIC TOPICAL (13:45)
--- NOTE | 2023-11-11 16:35 | PC.NURSE ---
RN spent 10 minutes at bedside updating patient and family about patient's stay, current medications, and therapy orders.
[2023-11-12 05:07] VITALS: BP 127/68; PULSE 78; RESP 17; TEMP 36.8; O2SAT 98
[2023-11-12] MEDS: LEVOTHYROXINE SODIUM 100 MCG TABLET 200 MCG PO (05:43)
[2023-11-12] MEDS: oxyCODONE/ACETAMINOPHEN (*CRX) 5-325 MG TABLET 1 TABLET PO ×2 (05:45→19:31)
[2023-11-12 06:18] LABS: Basophils Absolute Auto 0.1 K/mm3 (0.0-0.1); Basophils Percent Auto 0.8 % (0.2-1.2); Eosinophils Absolute Auto 0.5 K/mm3 (0-0.3); Eosinophils Percent Auto 5.1 % (0-4.4); Hematocrit 33.3 % (42.0-52.0); Hemoglobin 9.9 g/dL (14.0-18.0); Immature Granulocyte Absolute 0.08 K/mm3 (0.00-0.031); Immature Granulocyte Percent A 0.9 % (0-0.5); Immature Platelet Fraction Pct 3.1 % (0.9-11.2); Lymphocytes Absolute Auto 0.52 K/mm3 (0.9-3.2); Lymphocytes Percent Auto 5.9 % (18.3-44.2); Mean Corpuscular HGB Conc 29.7 g/dl (32-36); Mean Corpuscular Hemoglobin 28.4 pg (26-34); Mean Corpuscular Volume 95.4 fl (80-100); Mean Platelet Volume 10.9 fl (7.4-10.4); Monocytes Absolute Auto 0.7 K/mm3 (0.1-0.6); Monocytes Percent Auto 7.4 % (2.6-8.5); Neutrophils Percent Auto 79.9 % (45.5-73.1); Platelet Count Result 248 k/mm3 (150-375); Red Blood Count 3.49 M/mm3 (4.6-6.20); Red Cell Distribution Width 14.9 % (11.5-14.5); White Blood Count 8.8 K/mm3 (4.5-10.0)
[2023-11-12 06:31] LABS: Alanine Aminotransferase 18 U/L (6-50); Albumin Level 3.8 g/dL (3.5-5.1); Carbon Dioxide 27 mmol/L (22-30); Estimated CRCL calculation 57 ml/min; Estimated Glomerular Filt Rate 42; Glucose 109 mg/dL (65-110); Sodium 134 mmol/L (137-145)
[2023-11-12 06:32] LABS: Anion Gap 10 mmol/L (4-12); Blood Urea Nitrogen 42 mg/dL (9-20); Calcium 9.1 mg/dL (8.4-10.2); Chloride 97 mmol/L (98-107)
[2023-11-12 06:38] LABS: Alkaline Phosphatase 31 U/L (38-126); Aspartate Amino Transferase 34 U/L (17-59); Potassium 4.3 mmol/L (3.4-5.0)
[2023-11-12 08:03] VITALS: O2SAT 98
[2023-11-12 09:14] VITALS: PULSE 101
[2023-11-12] MEDS: TAMSULOSIN HCL 0.4 MG CAPSULE PO (09:14)
[2023-11-12] MEDS: LORATADINE 10 MG TABLET PO (09:14)
[2023-11-12] MEDS: METOPROLOL TARTRATE 50 MG TAB PO ×2 (09:14→20:07)
[2023-11-12] MEDS: allopurinoL 100 MG TABLET PO (09:14)
[2023-11-12] MEDS: FAMOTIDINE 20 MG TABLET PO (09:14)
[2023-11-12] MEDS: SPIRONOLACTONE 25 MG TABLET PO (09:14)
[2023-11-12] MEDS: acetaZOLAMIDE TAB 250 MG TABLET PO (09:14)
[2023-11-12] MEDS: LACTIC ACID 12% LOTION 225 BTL 1 APPLIC TOPICAL (09:14)
[2023-11-12] MEDS: GABAPENTIN 300 MG CAPSULE PO ×3 (09:14→16:10)
[2023-11-12] MEDS: APIXABAN 5 MG TABLET PO ×2 (09:14→20:07)
[2023-11-12] MEDS: minoxidiL 10 MG TABLET PO (09:14)
[2023-11-12] MEDS: DOCUSATE SODIUM 100 MG CAPSULE PO ×2 (09:14→20:07)
--- NOTE | 2023-11-12 12:32 | ECG_ITS ---
Test Date: 2023-11-12 14:49:53 Measurements Intervals Severance Rate: 93 P: 250 VT: 183 QRS: -79 QRSD: 169 T: 32 QT: 414 QTc: 517 Interpretive Statements PROBABLE SINUS RHYTHM WITH FREQUENT VENTRICULAR PREMATURE COMPLEXES RIGHT BUNDLE BRANCH BLOCK [120+ ms QRS DURATION, UPRIGHT V1, 40+ ms S IN I/aVL/V4/V5/V6] LEFT ANTERIOR FASCICULAR BLOCK [QRS AXIS <= -45, QR IN I, RS IN II] No previous ECG available for comparison Electronically Signed On 11-13-2023 09:22:26 CDT by Nicky Allen M.D.
[2023-11-12] MEDS: CEFEPIME 1 GM/NS 50 ML 1 GM/50 ML BAG IVPB ×2 (12:39)
[2023-11-12 14:00] VITALS: BP 143/71; PULSE 94; RESP 18; TEMP 36.9; O2SAT 99
--- NOTE | 2023-11-12 14:08 | PC.NURSE ---
Patient off of unit to xray
--- NOTE | 2023-11-12 14:57 | PM.IMPN ---
Progress Note: A&P Assessment and Plan (1) Sepsis: Qualifiers: Sepsis acute organ dysfunction status: without acute organ dysfunction Sepsis type: sepsis due to unspecified organism Qualified Code(s): A41.9 - Sepsis, unspecified organism Code(s): A41.9 - Sepsis, unspecified organism Status: Acute Assessment and Plan: According to patient he had a fever of 102.7 per EMS. He was tachycardic on arrival to the ED with a HR 103 bpm. Presumed infection with right lower leg cellulitis vs pneumonia Leukocytosis 17.6-->13.9-->11.1-->8.8 Blood cultures no growth to date, no lactic drawn, procalcitonin 0.5 Blood pressures are stable. He received 1 L fluid bolus in the ED. Started on broad spectrum antibiotics with Cefepime and Vancomycin. Transition to oral Levaquin today for 7 more days. Upper respiratory panel was negative (2) Cellulitis of right lower leg: Code(s): L03.115 - Cellulitis of right lower limb Status: Resolved Assessment and Plan: Right foot with erythema, warmth, and purulent drainage. Concern for Pseudomonas with faint green debris to nail bed. Chronic wound since April 2023. Patient was recently seen in July of this year with similar presentation and was treated for cellulitis. He follows with Wound Care here at [place]. Last visit was 10/29 and while his wound has increased drainage it does not appear that different from recent photos. WBC 17.7 on arrival. He had a reported temperature of 102.7 per EMS. Wound care has been consulted and recommendations are appreciated Empirically started on Cefepime and Vancomycin. Wound culture grew Pseudomonas. Transition to Levaquin for 7 more days. Wound care daily as ordered While he does have pain to his right lower leg there is no increased swelling to raise suspicion for possible DVT. He also is anticoagulated on Eliquis and coags reflect this. (3) Chronic kidney disease: Code(s): N18.9 - Chronic kidney disease, unspecified Status: Acute Assessment and Plan: Baseline creatinine runs approximately 2.0. He follows with Dr Bender. Cr 2.2-->1.80--1.6 Monitor labs daily Renally dose medications (4) Chronic congestive heart failure: Qualifiers: Heart failure type: unspecified Qualified Code(s): I50.9 - Heart failure, unspecified Code(s): I50.9 - Heart failure, unspecified Status: Chronic Assessment and Plan: ECHO from 04/2022 shows LV systolic function normal with EF 65-70% and LV diastolic dysfunction grade 1, RV with mild systolic dysfunction. Home medications include Metoprolol tartrate 50 mg BID, Minoxidil 10 mg daily, Metolazone 5 mg 4x a week, spironolactone 25 mg daily. home medications restarted BNP 4790 IV Lasix 40 mg x 1 dose today (11-11) as he is complaining of shortness of breath. He is on metolazone 5 mg 4 times a week. May need to start Bumex versus Lasix Plan DVT prophylaxis: Eliquis GI prophylaxis: N/A Glycemic control: N/A Code Status: FULL CODE Disposition: 73 year old male who presents from home after falling with febrile illness, tachycardia, and leukocytosis. He has a chronic right lower extremity wound which appears to have increased drainage. The patient reports increased pain, erythema, and warmth over the last week. He also has shortness of breath at rest with a productive cough. He was treated initially with cefepime and vancomycin. Wound culture grew Pseudomonas so he was transitioned to Levaquin p.o. for 7 more days. PT OT are recommending [facility] to which he is agreeable. Medication reconciliation obtained via the following: Nurse completed on admission The file time of this note does not necessarily represent the time the patient was seen.
[2023-11-12 15:04] LABS: NT Pro B Type Natriuretic Pept 4790 pg/mL (19.9-100)
[2023-11-12] MEDS: FUROSEMIDE INJ 40 MG/4 ML VIAL IV PUSH (16:10)
[2023-11-12 20:07] VITALS: PULSE 80
[2023-11-12] MEDS: levoFLOXacin 750 MG TABLET PO (20:07)
[2023-11-12 22:00] VITALS: BP 138/68; PULSE 95; RESP 20; TEMP 36.6; O2SAT 98
[2023-11-13] MEDS: LEVOTHYROXINE SODIUM 100 MCG TABLET 200 MCG PO (05:27)
[2023-11-13] MEDS: oxyCODONE/ACETAMINOPHEN (*CRX) 5-325 MG TABLET 1 TABLET PO ×4 (05:30→20:58)
[2023-11-13 05:53] LABS: Basophils Absolute Auto 0.1 K/mm3 (0.0-0.1); Basophils Percent Auto 0.6 % (0.2-1.2); Eosinophils Absolute Auto 0.4 K/mm3 (0-0.3); Eosinophils Percent Auto 4.5 % (0-4.4); Hematocrit 31.1 % (42.0-52.0); Hemoglobin 9.8 g/dL (14.0-18.0); Immature Granulocyte Absolute 0.12 K/mm3 (0.00-0.031); Immature Granulocyte Percent A 1.4 % (0-0.5); Lymphocytes Absolute Auto 0.46 K/mm3 (0.9-3.2); Lymphocytes Percent Auto 5.3 % (18.3-44.2); Mean Corpuscular HGB Conc 31.5 g/dl (32-36); Mean Corpuscular Hemoglobin 29.3 pg (26-34); Mean Corpuscular Volume 92.8 fl (80-100); Monocytes Absolute Auto 0.8 K/mm3 (0.1-0.6); Monocytes Percent Auto 9.4 % (2.6-8.5); Neutrophils Absolute Auto 6.8 K/mm3 (1.3-6.7); Neutrophils Percent Auto 78.8 % (45.5-73.1); Platelet Count Result 258 k/mm3 (150-375); Red Blood Count 3.35 M/mm3 (4.6-6.20); Red Cell Distribution Width 14.8 % (11.5-14.5); White Blood Count 8.6 K/mm3 (4.5-10.0)
[2023-11-13 06:08] LABS: Alanine Aminotransferase 20 U/L (6-50); Albumin Level 3.8 g/dL (3.5-5.1); Alkaline Phosphatase 47 U/L (38-126); Anion Gap 11 mmol/L (4-12); Aspartate Amino Transferase 23 U/L (17-59); Bilirubin,Total 0.5 mg/dL (0.2-1.3); Blood Urea Nitrogen 34 mg/dL (9-20); Calcium 9.8 mg/dL (8.4-10.2); Carbon Dioxide 29 mmol/L (22-30); Chloride 94 mmol/L (98-107); Estimated CRCL calculation 57 ml/min; Estimated Glomerular Filt Rate 42; Glucose 106 mg/dL (65-110); Potassium 3.4 mmol/L (3.4-5.0); Sodium 134 mmol/L (137-145)
[2023-11-13 06:27] VITALS: BP 149/74; PULSE 94; RESP 20; TEMP 36.2; O2SAT 100
[2023-11-13] MEDS: allopurinoL 100 MG TABLET PO (08:45)
[2023-11-13] MEDS: FAMOTIDINE 20 MG TABLET PO (08:45)
[2023-11-13] MEDS: DOCUSATE SODIUM 100 MG CAPSULE PO ×2 (08:45→20:56)
[2023-11-13] MEDS: LORATADINE 10 MG TABLET PO (08:45)
[2023-11-13] MEDS: minoxidiL 10 MG TABLET PO (08:45)
[2023-11-13] MEDS: APIXABAN 5 MG TABLET PO ×2 (08:45→20:56)
[2023-11-13] MEDS: SPIRONOLACTONE 25 MG TABLET PO (08:45)
[2023-11-13] MEDS: TAMSULOSIN HCL 0.4 MG CAPSULE PO (08:45)
[2023-11-13] MEDS: GABAPENTIN 300 MG CAPSULE PO ×3 (08:45→17:28)
[2023-11-13] MEDS: acetaZOLAMIDE TAB 250 MG TABLET PO (08:45)
[2023-11-13] MEDS: polyethylene glycoL 3350 17 GM POWD.PACK PO (08:46)
[2023-11-13] MEDS: LACTIC ACID 12% LOTION 225 BTL 1 APPLIC TOPICAL (08:46)
[2023-11-13 08:52] VITALS: PULSE 100
[2023-11-13] MEDS: METOPROLOL TARTRATE 50 MG TAB PO ×2 (08:52→20:57)
[2023-11-13] MEDS: metOLazone 5 MG TABLET PO (08:55)
[2023-11-13] MEDS: calcitrioL 0.25 MCG CAPSULE PO (08:55)
[2023-11-13 09:42] VITALS: O2SAT 97
[2023-11-13] MEDS: guaiFENesin 12 HR 600 MG TABCR 1200 MG PO ×2 (13:43→20:56)
[2023-11-13 14:00] VITALS: BP 114/65; PULSE 96; RESP 16; TEMP 37.1; O2SAT 95
--- NOTE | 2023-11-13 14:53 | PM.IMPN ---
Progress Note: A&P Assessment and Plan (1) Sepsis: Qualifiers: Sepsis acute organ dysfunction status: without acute organ dysfunction Sepsis type: sepsis due to unspecified organism Qualified Code(s): A41.9 - Sepsis, unspecified organism Code(s): A41.9 - Sepsis, unspecified organism Status: Acute Assessment and Plan: According to patient he had a fever of 102.7 per EMS. He was tachycardic on arrival to the ED with a HR 103 bpm. Presumed infection with right lower leg cellulitis vs pneumonia Leukocytosis 17.6-->13.9-->11.1-->8.8 Blood cultures no growth to date, no lactic drawn, procalcitonin 0.5 Blood pressures are stable. He received 1 L fluid bolus in the ED. Started on broad spectrum antibiotics with Cefepime and Vancomycin. Transition to oral Levaquin today for 7 more days. Upper respiratory panel was negative (2) Cellulitis of right lower leg: Code(s): L03.115 - Cellulitis of right lower limb Status: Resolved Assessment and Plan: Right foot with erythema, warmth, and purulent drainage. Concern for Pseudomonas with faint green debris to nail bed. Chronic wound since April 2023. Patient was recently seen in July of this year with similar presentation and was treated for cellulitis. He follows with Wound Care here at [place]. Last visit was 10/29 and while his wound has increased drainage it does not appear that different from recent photos. WBC 17.7 on arrival. He had a reported temperature of 102.7 per EMS. Wound care has been consulted and recommendations are appreciated Empirically started on Cefepime and Vancomycin. Wound culture grew Pseudomonas. Transition to Levaquin for 7 more days. Wound care daily as ordered While he does have pain to his right lower leg there is no increased swelling to raise suspicion for possible DVT. He also is anticoagulated on Eliquis and coags reflect this. (3) Chronic kidney disease: Code(s): N18.9 - Chronic kidney disease, unspecified Status: Acute Assessment and Plan: Baseline creatinine runs approximately 2.0. He follows with Dr Bender. Cr 2.2-->1.80--1.6 Monitor labs daily Renally dose medications (4) Chronic congestive heart failure: Qualifiers: Heart failure type: unspecified Qualified Code(s): I50.9 - Heart failure, unspecified Code(s): I50.9 - Heart failure, unspecified Status: Chronic Assessment and Plan: ECHO from 04/2022 shows LV systolic function normal with EF 65-70% and LV diastolic dysfunction grade 1, RV with mild systolic dysfunction. Home medications include Metoprolol tartrate 50 mg BID, Minoxidil 10 mg daily, Metolazone 5 mg 4x a week, spironolactone 25 mg daily. home medications restarted BNP 4790 IV Lasix 40 mg x 1 dose today (11-11) as he is complaining of shortness of breath. He is on metolazone 5 mg 4 times a week. May need to start Bumex versus Lasix Plan Code status: Full code per patient DVT prophylaxis: Eliquis Stress ulcer prophylaxis: Protonix 40 daily PT/OT notes: [facility] Disposition: Patient continues admission to unit currently pending [facility] placement for continued rehab patient's overall respiratory status has improved continue with current treatment. 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 11/09: Patient is seen resting in bed in no acute distress. He reports that he does not feel well. He cannot definitively tel
[2023-11-13 20:57] VITALS: PULSE 96
[2023-11-13] MEDS: levoFLOXacin 750 MG TABLET PO (20:57)
[2023-11-13 22:25] VITALS: BP 111/58; PULSE 96; RESP 20; TEMP 36.2; O2SAT 98
[2023-11-14 01:00] VITALS: PULSE 96; O2SAT 97
[2023-11-14 05:49] LABS: Basophils Absolute Auto 0.1 K/mm3 (0.0-0.1); Basophils Percent Auto 0.6 % (0.2-1.2); Eosinophils Absolute Auto 0.4 K/mm3 (0-0.3); Eosinophils Percent Auto 4.4 % (0-4.4); Hemoglobin 9.8 g/dL (14.0-18.0); Immature Granulocyte Absolute 0.21 K/mm3 (0.00-0.031); Immature Granulocyte Percent A 2.2 % (0-0.5); Lymphocytes Absolute Auto 0.51 K/mm3 (0.9-3.2); Lymphocytes Percent Auto 5.3 % (18.3-44.2); Mean Corpuscular HGB Conc 31.6 g/dl (32-36); Mean Corpuscular Hemoglobin 29.3 pg (26-34); Mean Corpuscular Volume 92.5 fl (80-100); Mean Platelet Volume 10.3 fl (7.4-10.4); Monocytes Absolute Auto 0.8 K/mm3 (0.1-0.6); Monocytes Percent Auto 8.2 % (2.6-8.5); Neutrophils Absolute Auto 7.6 K/mm3 (1.3-6.7); Neutrophils Percent Auto 79.3 % (45.5-73.1); Platelet Count Result 259 k/mm3 (150-375); Red Blood Count 3.35 M/mm3 (4.6-6.20); Red Cell Distribution Width 14.9 % (11.5-14.5); White Blood Count 9.6 K/mm3 (4.5-10.0)
[2023-11-14 06:00] VITALS: BP 139/68; PULSE 91; RESP 20; TEMP 36.2; O2SAT 98
[2023-11-14 06:10] LABS: Alanine Aminotransferase 19 U/L (6-50); Albumin Level 3.6 g/dL (3.5-5.1); Alkaline Phosphatase 47 U/L (38-126); Anion Gap 10 mmol/L (4-12); Aspartate Amino Transferase 22 U/L (17-59); Bilirubin,Total 0.5 mg/dL (0.2-1.3); Blood Urea Nitrogen 33 mg/dL (9-20); Calcium 10.1 mg/dL (8.4-10.2); Carbon Dioxide 30 mmol/L (22-30); Chloride 93 mmol/L (98-107); Estimated CRCL calculation 52 ml/min; Estimated Glomerular Filt Rate 37; Glucose 110 mg/dL (65-110); Potassium 3.6 mmol/L (3.4-5.0); Sodium 133 mmol/L (137-145)
[2023-11-14] MEDS: LEVOTHYROXINE SODIUM 100 MCG TABLET 200 MCG PO (06:33)
[2023-11-14] MEDS: polyethylene glycoL 3350 17 GM POWD.PACK PO (08:44)
[2023-11-14] MEDS: DOCUSATE SODIUM 100 MG CAPSULE PO ×2 (08:45→21:38)
[2023-11-14] MEDS: acetaZOLAMIDE TAB 250 MG TABLET PO (08:45)
[2023-11-14] MEDS: LORATADINE 10 MG TABLET PO (08:45)
[2023-11-14] MEDS: minoxidiL 10 MG TABLET PO (08:45)
[2023-11-14] MEDS: SPIRONOLACTONE 25 MG TABLET PO (08:45)
[2023-11-14] MEDS: guaiFENesin 12 HR 600 MG TABCR 1200 MG PO ×2 (08:45→21:38)
[2023-11-14] MEDS: allopurinoL 100 MG TABLET PO (08:45)
[2023-11-14] MEDS: APIXABAN 5 MG TABLET PO ×2 (08:45→21:38)
[2023-11-14] MEDS: FAMOTIDINE 20 MG TABLET PO (08:45)
[2023-11-14] MEDS: GABAPENTIN 300 MG CAPSULE PO ×3 (08:45→17:48)
[2023-11-14] MEDS: TAMSULOSIN HCL 0.4 MG CAPSULE PO (08:45)
[2023-11-14 08:46] VITALS: PULSE 95
[2023-11-14] MEDS: oxyCODONE/ACETAMINOPHEN (*CRX) 5-325 MG TABLET 1 TABLET PO ×3 (08:46→17:48)
[2023-11-14] MEDS: METOPROLOL TARTRATE 50 MG TAB PO ×2 (08:46→21:38)
[2023-11-14] MEDS: LACTIC ACID 12% LOTION 225 BTL 1 APPLIC TOPICAL (08:53)
--- NOTE | 2023-11-14 11:07 | PCOTNOTE ---
Therapist attempted 2 times this A.M. Patient eating and Patient with PT when attempted. OT will try back again this P.M. for treatment session.
[2023-11-14 14:00] VITALS: BP 113/64; PULSE 98; RESP 18; TEMP 36.3; O2SAT 100
--- NOTE | 2023-11-14 14:49 | P.CDI_ITS ---
CDI Query Clarification Request Please specify type and acuity of heart failure if known. Risk Factors: Documented shortness of breath and cough. Clinical Indicators: Elevated BNP of 4790 on 11/12/23, ECHO from 04/2022 shows LV systolic function normal with EF 65-70% and LV diastolic dysfunction grade 1, RV with mild systolic dysfunction. Treatment: IV lasix x 1 dose on 11/11, metolazone 5 mg 4 times a week, documented may need to start on bumex vs lasix. * Acute * Chronic * Acute on Chronic * Unknown * Systolic * Diastolic * Combined Systolic and Diastolic * Unknown <Nava Louis RN - Last Filed: 11/14/23 14:56> Clarified Diagnosis Clarified Diagnosis: Acute on chronic Combined Systolic and Diastolic <Jonna Jeff APRN - Last Filed: 11/14/23 15:26>
--- NOTE | 2023-11-14 15:26 | PM.IMPN ---
Progress Note: A&P Assessment and Plan (1) Sepsis: Qualifiers: Sepsis acute organ dysfunction status: without acute organ dysfunction Sepsis type: sepsis due to unspecified organism Qualified Code(s): A41.9 - Sepsis, unspecified organism Code(s): A41.9 - Sepsis, unspecified organism Status: Acute Assessment and Plan: According to patient he had a fever of 102.7 per EMS. He was tachycardic on arrival to the ED with a HR 103 bpm. Presumed infection with right lower leg cellulitis vs pneumonia Leukocytosis 17.6-->13.9-->11.1-->8.8 Blood cultures no growth to date, no lactic drawn, procalcitonin 0.5 Blood pressures are stable. He received 1 L fluid bolus in the ED. Started on broad spectrum antibiotics with Cefepime and Vancomycin. Transition to oral Levaquin today for 7 more days. Upper respiratory panel was negative (2) Cellulitis of right lower leg: Code(s): L03.115 - Cellulitis of right lower limb Status: Resolved Assessment and Plan: Right foot with erythema, warmth, and purulent drainage. Concern for Pseudomonas with faint green debris to nail bed. Chronic wound since April 2023. Patient was recently seen in July of this year with similar presentation and was treated for cellulitis. He follows with Wound Care here at [place]. Last visit was 10/29 and while his wound has increased drainage it does not appear that different from recent photos. WBC 17.7 on arrival. He had a reported temperature of 102.7 per EMS. Wound care has been consulted and recommendations are appreciated Empirically started on Cefepime and Vancomycin. Wound culture grew Pseudomonas. Transition to Levaquin for 7 more days. Wound care daily as ordered While he does have pain to his right lower leg there is no increased swelling to raise suspicion for possible DVT. He also is anticoagulated on Eliquis and coags reflect this. Patient transitioned to Levaquin PO (3) Chronic kidney disease: Code(s): N18.9 - Chronic kidney disease, unspecified Status: Acute Assessment and Plan: Baseline creatinine runs approximately 2.0. He follows with Dr Bender. Cr 2.2-->1.80--1.6 Monitor labs daily Renally dose medications (4) Chronic congestive heart failure: Qualifiers: Heart failure type: combined systolic and diastolic Qualified Code(s): I50.42 - Chronic combined systolic (congestive) and diastolic (congestive) heart failure Code(s): I50.9 - Heart failure, unspecified Status: Chronic Assessment and Plan: Acute on chronic combined systolic and diastolic heart failure ECHO from 04/2022 shows LV systolic function normal with EF 65-70% and LV diastolic dysfunction grade 1, RV with mild systolic dysfunction. Home medications include Metoprolol tartrate 50 mg BID, Minoxidil 10 mg daily, Metolazone 5 mg 4x a week, spironolactone 25 mg daily. home medications restarted BNP 4790 IV Lasix 40 mg x 1 dose today (11-11) as he is complaining of shortness of breath. He is on metolazone 5 mg 4 times a week. May need to start Bumex versus Lasix Plan Code status: Full code per patient DVT prophylaxis: Eliquis Stress ulcer prophylaxis: Protonix 40 daily PT/OT notes: [facility] Disposition: Patient continues admission to unit currently pending [facility] placement for continued rehab patient's overall respiratory status has improved continue with current treatment. Excepted to [facility] plan for discharge tomorrow. 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
[2023-11-14 21:38] VITALS: PULSE 86
[2023-11-14] MEDS: levoFLOXacin 750 MG TABLET PO (21:38)
[2023-11-14] MEDS: oxyCODONE/ACETAMINOPHEN (*CRX) 10-325 MG TABLET 1 TAB PO (21:40)
[2023-11-14 22:00] VITALS: BP 141/65; PULSE 94; RESP 20; TEMP 36.2; O2SAT 100
[2023-11-15] MEDS: LEVOTHYROXINE SODIUM 100 MCG TABLET 200 MCG PO (05:35)
[2023-11-15 06:00] VITALS: BP 123/62; PULSE 90; RESP 18; TEMP 36.7; O2SAT 96
[2023-11-15] MEDS: acetaZOLAMIDE TAB 250 MG TABLET PO (08:40)
[2023-11-15] MEDS: FAMOTIDINE 20 MG TABLET PO (08:40)
[2023-11-15] MEDS: TAMSULOSIN HCL 0.4 MG CAPSULE PO (08:40)
[2023-11-15] MEDS: minoxidiL 10 MG TABLET PO (08:40)
[2023-11-15] MEDS: SPIRONOLACTONE 25 MG TABLET PO (08:40)
[2023-11-15] MEDS: metOLazone 5 MG TABLET PO (08:40)
[2023-11-15] MEDS: guaiFENesin 12 HR 600 MG TABCR 1200 MG PO (08:40)
[2023-11-15] MEDS: APIXABAN 5 MG TABLET PO (08:40)
[2023-11-15 08:41] VITALS: PULSE 87
[2023-11-15] MEDS: METOPROLOL TARTRATE 50 MG TAB PO (08:41)
[2023-11-15] MEDS: GABAPENTIN 300 MG CAPSULE PO ×2 (08:41→13:28)
[2023-11-15] MEDS: LORATADINE 10 MG TABLET PO (08:41)
[2023-11-15] MEDS: calcitrioL 0.25 MCG CAPSULE PO (08:41)
[2023-11-15] MEDS: DOCUSATE SODIUM 100 MG CAPSULE PO (08:41)
[2023-11-15] MEDS: allopurinoL 100 MG TABLET PO (08:41)
[2023-11-15] MEDS: oxyCODONE/ACETAMINOPHEN (*CRX) 5-325 MG TABLET 1 TABLET PO ×2 (08:42→13:28)
[2023-11-15] MEDS: polyethylene glycoL 3350 17 GM POWD.PACK PO (08:42)
--- NOTE | 2023-11-15 12:32 | PM.DS ---
DS: Admitting Diagnosis Discharge Date 11/15/2023 Admitting Diagnosis Sepsis secondary to cellulitis DS: Discharge Diagnosis Discharge Diagnosis (1) Sepsis: Qualifiers: Sepsis acute organ dysfunction status: without acute organ dysfunction Sepsis type: sepsis due to unspecified organism Qualified Code(s): A41.9 - Sepsis, unspecified organism Code(s): A41.9 - Sepsis, unspecified organism Status: Acute Assessment and Plan: According to patient he had a fever of 102.7 per EMS. He was tachycardic on arrival to the ED with a HR 103 bpm. Presumed infection with right lower leg cellulitis vs pneumonia Leukocytosis 17.6-->13.9-->11.1-->8.8 Blood cultures no growth to date, no lactic drawn, procalcitonin 0.5 Blood pressures are stable. He received 1 L fluid bolus in the ED. Started on broad spectrum antibiotics with Cefepime and Vancomycin. Transition to oral Levaquin today for 7 more days. Upper respiratory panel was negative (2) Cellulitis of right lower leg: Code(s): L03.115 - Cellulitis of right lower limb Status: Resolved Assessment and Plan: Right foot with erythema, warmth, and purulent drainage. Concern for Pseudomonas with faint green debris to nail bed. Chronic wound since April 2023. Patient was recently seen in July of this year with similar presentation and was treated for cellulitis. He follows with Wound Care here at [facility]. Last visit was 10/29 and while his wound has increased drainage it does not appear that different from recent photos. WBC 17.7 on arrival. He had a reported temperature of 102.7 per EMS. Wound care has been consulted and recommendations are appreciated Empirically started on Cefepime and Vancomycin. Wound culture grew Pseudomonas. Transition to Levaquin for 7 more days. Wound care daily as ordered While he does have pain to his right lower leg there is no increased swelling to raise suspicion for possible DVT. He also is anticoagulated on Eliquis and coags reflect this. Patient transitioned to Levaquin PO (3) Chronic kidney disease: Code(s): N18.9 - Chronic kidney disease, unspecified Status: Acute Assessment and Plan: Baseline creatinine runs approximately 2.0. He follows with Dr Bender. Cr 2.2-->1.80--1.6 Monitor labs daily Renally dose medications (4) Chronic congestive heart failure: Qualifiers: Heart failure type: combined systolic and diastolic Qualified Code(s): I50.42 - Chronic combined systolic (congestive) and diastolic (congestive) heart failure Code(s): I50.9 - Heart failure, unspecified Status: Chronic Assessment and Plan: Acute on chronic combined systolic and diastolic heart failure ECHO from 04/2022 shows LV systolic function normal with EF 65-70% and LV diastolic dysfunction grade 1, RV with mild systolic dysfunction. Home medications include Metoprolol tartrate 50 mg BID, Minoxidil 10 mg daily, Metolazone 5 mg 4x a week, spironolactone 25 mg daily. home medications restarted BNP 4790 IV Lasix 40 mg x 1 dose today (11-11) as he is complaining of shortness of breath. He is on metolazone 5 mg 4 times a week. May need to start Bumex versus Lasix Plan Disposition: Patient discharged to intermediate facility for further rehab DS: Summary Hospital Course Reason for hospitalization: Sepsis secondary to cellulitis Hospital Course: Interval history: This is a very pleasant 73-year-old male with hypertension, dyslipidemia, heart failure with preserved ejection fraction atrial fibrillation on chronic anticoagulation, hypothyroidism, sleep apnea, GERD, chronic kidney disease, impaired mobility after diskectomy and chronic lymphedema of the lower extremities who presented to the emergency department via EMS from home with complaints of weakness and chills. 11/09: Patient is seen resting in bed in no acute distress
[2023-11-15] MEDS: LACTIC ACID 12% LOTION 225 BTL 1 APPLIC TOPICAL (13:30)
[2023-11-15 14:15] LABS: SARS-CoV-2 RNA PCR Negative (Negative)
== END 2023-11-15 15:12 | disposition home health service (06) | DRG 871 ==
LOC: ANHED 15:48 → ANH3MED 18:31
PROVIDERS: Nurse Practitioner Acute Care; Physician Assistant; Admitting Provider Internal Medicine; Emergency Provider Student in an Organized Health Care Education/Training Program; PCP Family Medicine; Visit Provider Nurse Practitioner Family
DX: A41.9 Sepsis, unspecified organism (principal); I50.43 Acute on chronic combined systolic (congestive) and diastolic (congestive) heart failure; L03.115 Cellulitis of right lower limb; I48.20 Chronic atrial fibrillation, unspecified; I13.0 Hypertensive heart and chronic kidney disease with heart failure and stage 1 through stage 4 chronic kidney disease, or unspecified chronic kidney disease; Z68.41 Body mass index [BMI] 40.0-44.9, adult; I89.0 Lymphedema, not elsewhere classified; I87.2 Venous insufficiency (chronic) (peripheral); L97.519 Non-pressure chronic ulcer of other part of right foot with unspecified severity; N18.9 Chronic kidney disease, unspecified; E78.5 Hyperlipidemia, unspecified; E03.9 Hypothyroidism, unspecified; E66.01 Morbid (severe) obesity due to excess calories; K21.9 Gastro-esophageal reflux disease without esophagitis; L71.8 Other rosacea; M10.9 Gout, unspecified; M54.50 Low back pain, unspecified; G89.29 Other chronic pain; G62.9 Polyneuropathy, unspecified; G47.33 Obstructive sleep apnea (adult) (pediatric); Z20.822 Contact with and (suspected) exposure to COVID-19; Z87.891 Personal history of nicotine dependence; Z11.52 Encounter for screening for COVID-19; Z99.3 Dependence on wheelchair; Z79.01 Long term (current) use of anticoagulants
CPT/HCPCS: 36415; 71045; 71046; 80048; 80053; 81001; 82550; 82948; 83735; 83880; 84145; 85025; 85027; 85055; 87040; 87070; 87077; 87081; 87181; 87186; 87205; 87635; 87637; 93005; 96361; 96365; 96366; 96367; 97110; 97161; 97166; 97530; 97535; 99285; A9270; G0378; J0456; J0692; J0696; J1940; J3370; J7030

== ENCOUNTER 2023-12-02 23:50 | Inpatient (IN) | payer MEDICARE, OTHER, SELFPAY ==
--- NOTE | ~2023-12-02 | US_ITS ---
EXAMINATION: US venous doppler LE RT DATE: 12/03/2023 10:23 INDICATION: Right lower limb pain, swelling and erythema TECHNIQUE: Grayscale ultrasound images without and with compression and Doppler ultrasound images of the right lower extremity veins were obtained. COMPARISON: 04/20/2022 FINDINGS: The visualized portions of right common femoral vein, profunda (deep) femoral vein, femoral vein, pop liteal vein, posterior tibial veins, peroneal veins and greater saphenous vein outflow are patent. IMPRESSION: 1. No deep venous thrombosis in the right lower limb. Reviewed, dictated and finalized at location A.
--- NOTE | ~2023-12-02 | XR_ITS ---
XR chest 1V portable 12/05/2023 14:14 Indication: Shortness of breath Procedure: AP portable chest Comparison: Comparison to multiple prior studies sequentially, with oldest reviewed study dated 11/11. Findings: Cardiomegaly with pulmonary vascular congestion. No pleural effusion or pneumothorax. No ac nooksack osseous abnormality. Impression: 1: Cardiomegaly with pulmonary vascular congestion. Reviewed, dictated and finalized at location B. Impression: 1: Cardiomegaly with pulmonary vascular congestion.
--- NOTE | ~2023-12-02 | XR_ITS ---
Right foot Technique: AP, oblique, and lateral views were obtained. Clinical History: Pain and swelling COMPARISON: 08/26/2023 Findings: No acute fracture or dislocation is seen. Osseous alignment is anatomic. Joint spaces are p reserved without erosive or degenerative change. Diffuse soft tissue swelling the foot noted. Impression: Diffuse soft tissue swelling of the foot. Reviewed, dictated and finalized at location . Impression: Diffuse soft tissue swelling of the foot.
--- NOTE | ~2023-12-02 | US_ITS ---
EXAMINATION: US arterial duplex LE DATE: 12/03/2023 16:48 INDICATION: Peripheral arterial disease. Right lower limb ulcer. TECHNIQUE: Multiple grayscale and Doppler ultrasound images of the abdomen were obtained. COMPARISON: None FINDINGS: In the right lower limb, peak systolic velocity is 116 cm/s in common femoral artery, 86 cm /s in profunda femoral artery, 84 cm/s in proximal superficial femoral artery, 90 cm/s in the mid sup erficial femoral artery, 50 cm/s in distal superficial femoral artery, 37 cm/s in proximal popliteal artery, 49 cm/s in distal popliteal artery, 22 cm/s in posterior tibial artery, and 23 cm/s peroneal artery. Arterial vascular flow is not visualized in anterior tibial artery or dorsalis pedis. In left lower limb, peak systolic velocity is 114 cm/s in common femoral artery, 125 cm/s in profunda femoral artery, 127 cm/s in proximal superficial femoral artery, 109 cm/s in mid superficial femoral artery, 153 cm/s in distal superficial femoral artery, 56 cm/s in popliteal artery, 107 cm/s poplite al artery, 43 cm/s in peroneal artery, 63 cm/s in anterior tibial artery, and 16 cm/s in dorsalis ped is. IMPRESSION: 1. Increased velocity gradient between right popliteal artery and peroneal artery, consistent with at least moderate stenosis. 2. Arterial vascular flow not visualized in right anterior tibial artery or dorsalis pedis. 3. Increased velocity gradient between left superficial femoral artery and popliteal artery, consiste nt with at least moderate stenosis. 4. Increased velocity gradient between left popliteal artery and peroneal artery, consistent with at least moderate stenosis. 3. Increased velocity gradient between left anterior tibial artery and left dorsalis pedis, consisten t with at least moderate stenosis. Reviewed, dictated and finalized at location A. IMPRESSION: 1. Increased velocity gradient between right popliteal artery and peroneal kasia ry, consistent with at least moderate stenosis. 2. Arterial vascular flow not visualized in right anterior tibial artery or nanette salis pedis. 3. Increased velocity gradient between left superficial femoral artery and popl iteal artery, consistent with at least moderate stenosis. 4. Increased velocity gradient between left popliteal artery and peroneal arter y, consistent with at least moderate stenosis. 3. Increased velocity gradient between left anterior tibial artery and left nanette salis pedis, consistent with at least moderate stenosis.
[2023-12-02 23:55] VITALS: BP 115/75; PULSE 83; RESP 14; TEMP 36.8; O2SAT 100
[2023-12-03] VITALS (7 sets, daily range): BP systolic 106–145; BP diastolic 61–88; PULSE 78–100; RESP 14–20; TEMP 36.4–37; O2SAT 97–100; BMI 45.2
[2023-12-03] MEDS: ONDANSETRON INJ 4 MG/2 ML VIAL IV PUSH (00:39)
[2023-12-03] MEDS: HYDROmorphone HCL INJ (*CRX) 1 MG/ML SYR IV PUSH ×3 (00:39→18:54)
[2023-12-03] MEDS: GABAPENTIN 300 MG CAPSULE 600 MG PO (00:46)
[2023-12-03 00:56] LABS: Lactic Acid Reflex 1.5 mmol/L (0.7-2.0)
--- NOTE | 2023-12-03 00:58 | ED.GENADULT ---
HPI - General Adult General Chief complaint: Extremity Problem,Nontraumatic Stated complaint: foot infection Time Seen by Provider: 12/02/23 23:55 History of Present Illness HPI narrative: This is a 73-year-old male with history of lymphedema and right lower extremity cellulitis for foot pain. Patient states that earlier today pain in his foot became far more severe than usual. He has also noticed increased redness and swelling. No fevers, chills, nausea vomiting diarrhea. Patient has a history of neuropathy and takes gabapentin. Patient's pain options are limited because he typically vomits when he takes oral opiates. Related Data Home Medications Medication Instructions Recorded Confirmed loratadine 10 mg tablet (Claritin) 10 mg PO DAILY 07/12/20 11/09/23 polyethylene glycol 3350 17 17 g PO DAILY PRN Constipation 06/02/21 11/09/23 gram/dose oral powder (Miralax) acetazolamide 250 mg tablet 250 mg PO DAILY 11/19/22 11/09/23 fluticasone propionate 50 1 spray intranasal DAILY PRN 11/19/22 11/09/23 mcg/actuation nasal Congestion spray,suspension (Flonase Allergy Relief) minoxidil 10 mg tablet 10 mg PO DAILY 11/19/22 11/09/23 levothyroxine 200 mcg tablet 200 mcg PO DAILY 08/30/23 11/09/23 gabapentin 300 mg capsule 300 mg PO TID 11/09/23 11/09/23 Allergies Allergy/AdvReac Type Severity Reaction Status Date / Time Sulfa (Sulfonamide Allergy Mild Rash Verified 11/09/23 20:17 Antibiotics) Penicillins Allergy Unknown SWELLING Verified 11/09/23 20:17 codeine AdvReac Mild N/V Verified 11/09/23 20:17 hydrocodone AdvReac Mild N/V Verified 11/09/23 20:17 tramadol AdvReac Mild Nausea Verified 11/09/23 20:17 PMFSH Past Medical History Medical History Atrial fibrillation Chronic acquired lymphedema Chronic anemia Chronic congestive heart failure Echocardiogram in May 2021 was technically difficult and showed normal LV systolic function with an EF of 60 to 65%, severely enlarged RV chamber with moderate to severely reduced RV systolic function, severe biatrial enlargement, and moderate pulmonary hypertension. Chronic kidney disease Chronic low back pain Chronic venous insufficiency Dyslipidemia Environmental allergies Essential (primary) hypertension GERD without esophagitis Gout Hypothyroidism Lymphedema of both lower extremities Morbid obesity with body mass index (BMI) of 40.0 or higher Neuropathic pain Obstructive sleep apnea Ocular rosacea Peripheral polyneuropathy Rosacea Sepsis Surgical History Surgical History H/O eye surgery (~2005) [id number] [facility] History of carpal tunnel release History of cholecystectomy (2008) History of discectomy (2012) History of foot surgery Left Foot History of rotator cuff surgery Bilateral. History of thoracic surgery Pericardial effusion s/p pericardial window thought secondary to minoxidil, in 2010 at [facility]. Family History Family History Father Cardiovascular disease Grandparent Cancer Mother COPD (chronic obstructive pulmonary disease) Social History Social History Social History: Surrogate medical decision maker: Shyla Hurst, daughter. Code status: Full code. Smoking packs per day: 2 Smoking cigarettes per day: 40.0 Years smoked: 18 Smoking pack-years: 36.00 Smoking status: Former smoker Tobacco type: cigarettes Second hand tobacco smoke exposure: No Additional smoking assessment comments: 1978 Alcohol intake: never Drinks per week: 14 Alcohol use details: One beer daily. Substance use: never Substance use type: does not use Do You Feel Safe in your Home?: Yes Lack of Transportation: No Lack of Food: Never True Current Housing: I Have Housing Concerned About Future Housing: No Di
[2023-12-03 01:00] LABS: CRP 2.7 mg/dL (<1.0)
[2023-12-03 01:11] LABS: Basophils Absolute Auto 0.1 K/mm3 (0.0-0.1); Basophils Percent Auto 0.7 % (0.2-1.2); Eosinophils Absolute Auto 0.6 K/mm3 (0-0.3); Hemoglobin 11.3 g/dL (14.0-18.0); Immature Granulocyte Absolute 0.08 K/mm3 (0.00-0.031); Immature Granulocyte Percent A 0.7 % (0-0.5); Lymphocytes Absolute Auto 0.78 K/mm3 (0.9-3.2); Lymphocytes Percent Auto 6.4 % (18.3-44.2); Mean Corpuscular HGB Conc 31.4 g/dl (32-36); Mean Corpuscular Hemoglobin 28.8 pg (26-34); Mean Corpuscular Volume 91.6 fl (80-100); Mean Platelet Volume 10.1 fl (7.4-10.4); Monocytes Absolute Auto 0.9 K/mm3 (0.1-0.6); Monocytes Percent Auto 7.6 % (2.6-8.5); Neutrophils Absolute Auto 9.7 K/mm3 (1.3-6.7); Neutrophils Percent Auto 79.6 % (45.5-73.1); Platelet Count Result 355 k/mm3 (150-375); Red Blood Count 3.93 M/mm3 (4.6-6.20); Red Cell Distribution Width 15.9 % (11.5-14.5); White Blood Count 12.2 K/mm3 (4.5-10.0)
[2023-12-03 01:12] LABS: Alanine Aminotransferase 9 U/L (6-50); Albumin Level 4.2 g/dL (3.5-5.1); Alkaline Phosphatase 70 U/L (38-126); Anion Gap 13 mmol/L (4-12); Aspartate Amino Transferase 16 U/L (17-59); Bilirubin,Total 0.5 mg/dL (0.2-1.3); Blood Urea Nitrogen 31 mg/dL (9-20); Carbon Dioxide 24 mmol/L (22-30); Chloride 95 mmol/L (98-107); Estimated CRCL calculation 49 ml/min; Estimated Glomerular Filt Rate 35; Glucose 118 mg/dL (65-110); Potassium 3.2 mmol/L (3.4-5.0); Sodium 132 mmol/L (137-145)
[2023-12-03 01:14] LABS: Erythrocyte Sedimentation Rate 113 mm/hr (0-20)
--- NOTE | 2023-12-03 01:21 | ECG_ITS ---
Test Date: 2023-12-03 01:45:02 Measurements Intervals [place] Rate: 79 P: -81 [place]: 175 QRS: -69 QRSD: 172 T: 11 QT: 449 QTc: 517 Interpretive Statements ECTOPIC ATRIAL RHYTHM RIGHT BUNDLE BRANCH BLOCK LEFT ANTERIOR FASCICULAR BLOCK BASELINE ARTIFACT- I, II, III, AVR, AVL, AVF, V1-V2 ABNORMAL ECG Compared to ECG 11/12/2023 14:49:53 NO SIGNIFICANT CHANGE Electronically Signed On 12-03-2023 06:32:09 CDT by Reid Hubbard D.O.
[2023-12-03] MEDS: POTASSIUM CHLORIDE 20 MEQ ER TABLET 40 MEQ PO (02:05)
[2023-12-03] MEDS: CEFEPIME 2 GM/NS 50 ML 2 GM/50 ML BAG IVPB (02:06)
[2023-12-03] MEDS: VANCOMYCIN 1,250 MG/NS 250 ML 1,250 MG/250 ML BAG 166.67 MG IVPB ×2 (03:20→05:25)
[2023-12-03] MEDS: LACTATED RINGERS 1,000 ML 125 ML IV CONT (03:23)
[2023-12-03] MEDS: HYDROmorphone HCL INJ (*CRX) 1 MG/ML SYR 0.5 MG IV PUSH ×3 (05:24→11:33)
[2023-12-03] MEDS: WATER FOR IRRIGATION, STERILE 500 ML BOTTLE (05:28)
--- NOTE | 2023-12-03 08:34 | PM.IMHP ---
H&P: HPI History of Present Illness Date/Time: 12/03/23 08:34 Chief Complaint: Right foot pain Narrative: Patient is a 73 year old male with history of lymphedema, heart failure, and right lower extremity cellulitis with worsening foot pain. Patient reports that pain in his right foot is a 6.5 , pain is frequent and throbbing. Denies fever, chills, nausea, vomiting, or diarrhea. Reports constipation and heartburn. Patient has history of neuropathy with numbness and tingling to hands, takes gabapentin. Pain options limited due to CKD and vomiting with opiates. Patient reports a headache that is a 1 , constant, and aching that he relates to sinuses. Patient was in [place] for rehabilitation prior to coming to [place]. Patient daughter and four grandchildren live next door. Family assist with helping him around house, getting groceries, and going to appointments. When patient is strong enough we walks with a walker but is feeling weak at present. Patient reports that he has partial paralysis from his waist down after a back surgery 15 years ago. Review of Systems Constitutional: Constitutional: Denies chills and Reports weakness Comments: Denies fever Eyes: Comments: wears reading glasses ENT: Reports nasal discharge (clear) Cardiovascular: Cardiovascular: Denies chest pain, Reports pedal edema, Reports leg edema and Denies palpitations Respiratory: Respiratory: Reports cough and Reports dyspnea on exertion Comments: reports swallowing his phlegm Gastrointestinal: Gastrointestinal: Reports constipation, Reports heartburn, Denies nausea and Denies vomiting Genitourinary: Genitourinary: Denies dysuria and Denies urinary frequency Musculoskeletal: Comments: right foot pain Integumentary/Breasts: Skin/Breast: Reports dry skin, Reports erythema and Reports rash Neurologic: Reports headache(s) and Reports numbness Comments: tingling Psychiatric: Psychiatric: Reports no additional psychiatric complaints PMFSH Past Medical History Medical History Atrial fibrillation Chronic acquired lymphedema Chronic anemia Chronic congestive heart failure Echocardiogram in May 2021 was technically difficult and showed normal LV systolic function with an EF of 60 to 65%, severely enlarged RV chamber with moderate to severely reduced RV systolic function, severe biatrial enlargement, and moderate pulmonary hypertension. Chronic kidney disease Chronic low back pain Chronic venous insufficiency Dyslipidemia Environmental allergies Essential (primary) hypertension GERD without esophagitis Gout Hypothyroidism Lymphedema of both lower extremities Morbid obesity with body mass index (BMI) of 40.0 or higher Neuropathic pain Obstructive sleep apnea Ocular rosacea Peripheral polyneuropathy Rosacea Sepsis Surgical History Surgical History H/O eye surgery (~2006) [id number] [facility] History of carpal tunnel release History of cholecystectomy (2008) History of discectomy (2012) History of foot surgery Left Foot History of rotator cuff surgery Bilateral. History of thoracic surgery Pericardial effusion s/p pericardial window thought secondary to minoxidil, in 2010 at [facility]. Family History Family History Father Cardiovascular disease Grandparent Cancer Mother COPD (chronic obstructive pulmonary disease) Social History Social History Social History: Surrogate medical decision maker: Shyla Hurst, daughter. Code status: Full code. Smoking packs per day: 2 Smoking cigarettes per day: 40.0 Years smoked: 20 Smoking pack-years: 40.00 Smoking status: Former smoker Tobacco type: cigarettes Second hand tobacco smoke exposure: No Additional smoking assessm
[2023-12-03] MEDS: TAMSULOSIN HCL 0.4 MG CAPSULE PO (08:55)
[2023-12-03] MEDS: GABAPENTIN 300 MG CAPSULE PO ×3 (08:55→17:24)
[2023-12-03] MEDS: METOPROLOL TARTRATE 50 MG TAB PO ×2 (08:55→21:24)
[2023-12-03] MEDS: FAMOTIDINE 20 MG TABLET PO ×2 (08:55→21:24)
[2023-12-03] MEDS: DOCUSATE SODIUM 100 MG CAPSULE PO ×2 (08:55→21:24)
[2023-12-03] MEDS: SPIRONOLACTONE 25 MG TABLET PO (08:55)
[2023-12-03] MEDS: APIXABAN 5 MG TABLET PO ×2 (08:55→21:24)
[2023-12-03] MEDS: LORATADINE 10 MG TABLET PO (08:55)
[2023-12-03] MEDS: allopurinoL 100 MG TABLET PO (08:55)
--- NOTE | 2023-12-03 08:59 | PM.IMHP ---
H&P: HPI History of Present Illness Date/Time: 12/03/23 08:59 [facility] Past Medical History Medical History Atrial fibrillation Chronic acquired lymphedema Chronic anemia Chronic congestive heart failure Echocardiogram in May 2021 was technically difficult and showed normal LV systolic function with an EF of 60 to 65%, severely enlarged RV chamber with moderate to severely reduced RV systolic function, severe biatrial enlargement, and moderate pulmonary hypertension. Chronic kidney disease Chronic low back pain Chronic venous insufficiency Dyslipidemia Environmental allergies Essential (primary) hypertension GERD without esophagitis Gout Hypothyroidism Lymphedema of both lower extremities Morbid obesity with body mass index (BMI) of 40.0 or higher Neuropathic pain Obstructive sleep apnea Ocular rosacea Peripheral polyneuropathy Rosacea Sepsis Surgical History Surgical History H/O eye surgery (~2005) [id number] [facility] History of carpal tunnel release History of cholecystectomy (2008) History of discectomy (2012) History of foot surgery Left Foot History of rotator cuff surgery Bilateral. History of thoracic surgery Pericardial effusion s/p pericardial window thought secondary to minoxidil, in 2010 at [facility]. Family History Family History Father Cardiovascular disease Grandparent Cancer Mother COPD (chronic obstructive pulmonary disease) Social History Social History Social History: Surrogate medical decision maker: Shyla Hurst, daughter. Code status: Full code. Smoking packs per day: 2 Smoking cigarettes per day: 40.0 Years smoked: 20 Smoking pack-years: 40.00 Smoking status: Former smoker Tobacco type: cigarettes Second hand tobacco smoke exposure: No Additional smoking assessment comments: 1978 Alcohol intake: never Drinks per week: 14 Alcohol use details: One beer daily. Substance use: never Substance use type: does not use Do You Feel Safe in your Home?: Yes Lack of Transportation: No Lack of Food: Never True Current Housing: I Have Housing Concerned About Future Housing: No Difficulty Paying Gas/Electric Bills: No Difficulty Paying for Meds: No Currently Unemployed: No Education: High School Diploma/GED Difficulty w/ Childcare or Family Care: No Living arrangements: alone Additional living arrangements comments: Lives in own home in [place]. Uses a motorized scooter and transfers with slide board. 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 Spiritual care concerns: No Meds Home Medications and Allergies Home Medications Medication Instructions Recorded Confirmed Type loratadine 10 mg tablet (Claritin) 10 mg PO DAILY 07/12/20 12/03/23 History polyethylene glycol 3350 17 17 g PO DAILY PRN Constipation 06/02/21 12/03/23 History gram/dose oral powder (Miralax) apixaban 5 mg tablet (Eliquis) 5 mg PO Q12HR #180 tabs 01/19/22 12/03/23 Rx metoprolol tartrate 50 mg tablet 50 mg PO Q12HR #180 tabs 01/19/22 12/03/23 Rx acetazolamide 250 mg tablet 250 mg PO DAILY 11/19/22 12/03/23 History fluticasone propionate 50 1 spray intranasal DAILY PRN 11/19/22 12/03/23 History mcg/actuation nasal Congestion spray,suspension (Flonase Allergy Relief) minoxidil 10 mg tablet 10 mg PO DAILY 11/19/22 12/03/23 History lanolin alcohols-mineral 1 applic topical BID #113 grams 03/25/23 12/03/23 Rx oil-w.petrolatum-ceresin topical cream (Minerin Creme topical) spironolactone 25 mg tablet 25 mg PO DAILY #30 tabs 04/06/23 12/03/23 Rx tamsulosin 0.4 mg capsule 0.4 mg PO QAM #90 caps 04/06/23
--- NOTE | 2023-12-03 09:01 | PM.IMHP ---
H&P: HPI History of Present Illness Date/Time: 12/03/23 09:01 [facility] Past Medical History Medical History Atrial fibrillation Chronic acquired lymphedema Chronic anemia Chronic congestive heart failure Echocardiogram in May 2021 was technically difficult and showed normal LV systolic function with an EF of 60 to 65%, severely enlarged RV chamber with moderate to severely reduced RV systolic function, severe biatrial enlargement, and moderate pulmonary hypertension. Chronic kidney disease Chronic low back pain Chronic venous insufficiency Dyslipidemia Environmental allergies Essential (primary) hypertension GERD without esophagitis Gout Hypothyroidism Lymphedema of both lower extremities Morbid obesity with body mass index (BMI) of 40.0 or higher Neuropathic pain Obstructive sleep apnea Ocular rosacea Peripheral polyneuropathy Rosacea Sepsis Surgical History Surgical History H/O eye surgery (~2005) [id number] [facility] History of carpal tunnel release History of cholecystectomy (2008) History of discectomy (2012) History of foot surgery Left Foot History of rotator cuff surgery Bilateral. History of thoracic surgery Pericardial effusion s/p pericardial window thought secondary to minoxidil, in 2010 at [facility]. Family History Family History Father Cardiovascular disease Grandparent Cancer Mother COPD (chronic obstructive pulmonary disease) Social History Social History Social History: Surrogate medical decision maker: Shyla Hurst, daughter. Code status: Full code. Smoking packs per day: 2 Smoking cigarettes per day: 40.0 Years smoked: 20 Smoking pack-years: 40.00 Smoking status: Former smoker Tobacco type: cigarettes Second hand tobacco smoke exposure: No Additional smoking assessment comments: 1978 Alcohol intake: never Drinks per week: 14 Alcohol use details: One beer daily. Substance use: never Substance use type: does not use Do You Feel Safe in your Home?: Yes Lack of Transportation: No Lack of Food: Never True Current Housing: I Have Housing Concerned About Future Housing: No Difficulty Paying Gas/Electric Bills: No Difficulty Paying for Meds: No Currently Unemployed: No Education: High School Diploma/GED Difficulty w/ Childcare or Family Care: No Living arrangements: alone Additional living arrangements comments: Lives in own home in [place]. Uses a motorized scooter and transfers with slide board. 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 Spiritual care concerns: No Meds Home Medications and Allergies Home Medications Medication Instructions Recorded Confirmed Type loratadine 10 mg tablet (Claritin) 10 mg PO DAILY 07/12/20 12/03/23 History polyethylene glycol 3350 17 17 g PO DAILY PRN Constipation 06/02/21 12/03/23 History gram/dose oral powder (Miralax) apixaban 5 mg tablet (Eliquis) 5 mg PO Q12HR #180 tabs 01/19/22 12/03/23 Rx metoprolol tartrate 50 mg tablet 50 mg PO Q12HR #180 tabs 01/19/22 12/03/23 Rx acetazolamide 250 mg tablet 250 mg PO DAILY 11/19/22 12/03/23 History fluticasone propionate 50 1 spray intranasal DAILY PRN 11/19/22 12/03/23 History mcg/actuation nasal Congestion spray,suspension (Flonase Allergy Relief) minoxidil 10 mg tablet 10 mg PO DAILY 11/19/22 12/03/23 History lanolin alcohols-mineral 1 applic topical BID #113 grams 03/25/23 12/03/23 Rx oil-w.petrolatum-ceresin topical cream (Minerin Creme topical) spironolactone 25 mg tablet 25 mg PO DAILY #30 tabs 04/06/23 12/03/23 Rx tamsulosin 0.4 mg capsule 0.4 mg PO QAM #90 caps 04/06/23
--- NOTE | 2023-12-03 09:06 | PM.IMHP ---
H&P: HPI History of Present Illness Date/Time: 12/03/23 09:06 COUNTS INCLUDE 234 BEDS AT THE [facility] Past Medical History Medical History Atrial fibrillation Chronic acquired lymphedema Chronic anemia Chronic congestive heart failure Echocardiogram in May 2021 was technically difficult and showed normal LV systolic function with an EF of 60 to 65%, severely enlarged RV chamber with moderate to severely reduced RV systolic function, severe biatrial enlargement, and moderate pulmonary hypertension. Chronic kidney disease Chronic low back pain Chronic venous insufficiency Dyslipidemia Environmental allergies Essential (primary) hypertension GERD without esophagitis Gout Hypothyroidism Lymphedema of both lower extremities Morbid obesity with body mass index (BMI) of 40.0 or higher Neuropathic pain Obstructive sleep apnea Ocular rosacea Peripheral polyneuropathy Rosacea Sepsis Surgical History Surgical History H/O eye surgery (~2005) [id number] [facility] History of carpal tunnel release History of cholecystectomy (2008) History of discectomy (2012) History of foot surgery Left Foot History of rotator cuff surgery Bilateral. History of thoracic surgery Pericardial effusion s/p pericardial window thought secondary to minoxidil, in 2010 at [facility]. Family History Family History Father Cardiovascular disease Grandparent Cancer Mother COPD (chronic obstructive pulmonary disease) Social History Social History Social History: Surrogate medical decision maker: Shyla Hurst, daughter. Code status: Full code. Smoking packs per day: 2 Smoking cigarettes per day: 40.0 Years smoked: 20 Smoking pack-years: 40.00 Smoking status: Former smoker Tobacco type: cigarettes Second hand tobacco smoke exposure: No Additional smoking assessment comments: 1978 Alcohol intake: never Drinks per week: 14 Alcohol use details: One beer daily. Substance use: never Substance use type: does not use Do You Feel Safe in your Home?: Yes Lack of Transportation: No Lack of Food: Never True Current Housing: I Have Housing Concerned About Future Housing: No Difficulty Paying Gas/Electric Bills: No Difficulty Paying for Meds: No Currently Unemployed: No Education: High School Diploma/GED Difficulty w/ Childcare or Family Care: No Living arrangements: alone Additional living arrangements comments: Lives in own home in [place]. Uses a motorized scooter and transfers with slide board. Occupation/Education: retired Additional occupation/education comments: Retired. 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 Spiritual care concerns: No Meds Home Medications and Allergies Home Medications Medication Instructions Recorded Confirmed Type loratadine 10 mg tablet (Claritin) 10 mg PO DAILY 07/12/20 12/03/23 History polyethylene glycol 3350 17 17 g PO DAILY PRN Constipation 06/02/21 12/03/23 History gram/dose oral powder (Miralax) apixaban 5 mg tablet (Eliquis) 5 mg PO Q12HR #180 tabs 01/19/22 12/03/23 Rx metoprolol tartrate 50 mg tablet 50 mg PO Q12HR #180 tabs 01/19/22 12/03/23 Rx acetazolamide 250 mg tablet 250 mg PO DAILY 11/19/22 12/03/23 History fluticasone propionate 50 1 spray intranasal DAILY PRN 11/19/22 12/03/23 History mcg/actuation nasal Congestion spray,suspension (Flonase Allergy Relief) minoxidil 10 mg tablet 10 mg PO DAILY 11/19/22 12/03/23 History lanolin alcohols-mineral 1 applic topical BID #113 grams 03/25/23 12/03/23 Rx oil-w.petrolatum-ceresin topical cream (Minerin Creme topical) spironolactone 25 mg tablet 25 mg PO DAILY #30 tabs 04/06/23 12/03/23 Rx tamsulosin 0.4 mg capsule 0.4 mg PO QAM #90 caps 04/06/23
--- NOTE | 2023-12-03 09:58 | PM.IMHP ---
H&P: HPI History of Present Illness Date/Time: 12/03/23 09:58 [facility] Past Medical History Medical History Atrial fibrillation Chronic acquired lymphedema Chronic anemia Chronic congestive heart failure Echocardiogram in May 2021 was technically difficult and showed normal LV systolic function with an EF of 60 to 65%, severely enlarged RV chamber with moderate to severely reduced RV systolic function, severe biatrial enlargement, and moderate pulmonary hypertension. Chronic kidney disease Chronic low back pain Chronic venous insufficiency Dyslipidemia Environmental allergies Essential (primary) hypertension GERD without esophagitis Gout Hypothyroidism Lymphedema of both lower extremities Morbid obesity with body mass index (BMI) of 40.0 or higher Neuropathic pain Obstructive sleep apnea Ocular rosacea Peripheral polyneuropathy Rosacea Sepsis Surgical History Surgical History H/O eye surgery (~2005) [id number] [facility] History of carpal tunnel release History of cholecystectomy (2008) History of discectomy (2012) History of foot surgery Left Foot History of rotator cuff surgery Bilateral. History of thoracic surgery Pericardial effusion s/p pericardial window thought secondary to minoxidil, in [address] [facility]. Family History Family History Father Cardiovascular disease Grandparent Cancer Mother COPD (chronic obstructive pulmonary disease) Social History Social History Social History: Surrogate medical decision maker: Shyla Hurst, daughter. Code status: Full code. Smoking packs per day: 2 Smoking cigarettes per day: 40.0 Years smoked: 20 Smoking pack-years: 40.00 Smoking status: Former smoker Tobacco type: cigarettes Second hand tobacco smoke exposure: No Additional smoking assessment comments: 1978 Alcohol intake: never Drinks per week: 14 Alcohol use details: One beer daily. Substance use: never Substance use type: does not use Do You Feel Safe in your Home?: Yes Lack of Transportation: No Lack of Food: Never True Current Housing: I Have Housing Concerned About Future Housing: No Difficulty Paying Gas/Electric Bills: No Difficulty Paying for Meds: No Currently Unemployed: No Education: High School Diploma/GED Difficulty w/ Childcare or Family Care: No Living arrangements: alone Additional living arrangements comments: Lives in own home in [place]. Uses a motorized scooter and transfers with slide board. 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 Spiritual care concerns: No Meds Home Medications and Allergies Home Medications Medication Instructions Recorded Confirmed Type loratadine 10 mg tablet (Claritin) 10 mg PO DAILY 07/12/20 12/03/23 History polyethylene glycol 3350 17 17 g PO DAILY PRN Constipation 06/02/21 12/03/23 History gram/dose oral powder (Miralax) apixaban 5 mg tablet (Eliquis) 5 mg PO Q12HR #180 tabs 01/19/22 12/03/23 Rx metoprolol tartrate 50 mg tablet 50 mg PO Q12HR #180 tabs 01/19/22 12/03/23 Rx acetazolamide 250 mg tablet 250 mg PO DAILY 11/19/22 12/03/23 History fluticasone propionate 50 1 spray intranasal DAILY PRN 11/19/22 12/03/23 History mcg/actuation nasal Congestion spray,suspension (Flonase Allergy Relief) minoxidil 10 mg tablet 10 mg PO DAILY 11/19/22 12/03/23 History lanolin alcohols-mineral 1 applic topical BID #113 grams 03/25/23 12/03/23 Rx oil-w.petrolatum-ceresin topical cream (Minerin Creme topical) spironolactone 25 mg tablet 25 mg PO DAILY #30 tabs 04/06/23 12/03/23 Rx tamsulosin 0.4 mg capsule 0.4 mg PO QAM #90 caps 04/06/23
[2023-12-03] MEDS: minoxidiL 10 MG TABLET PO (11:33)
[2023-12-03] MEDS: acetaZOLAMIDE TAB 250 MG TABLET PO (11:33)
[2023-12-03] MEDS: LACTIC ACID 12% LOTION 225 BTL 1 APPLIC TOPICAL (11:34)
--- NOTE | 2023-12-03 11:42 | PCOTNOTE ---
Attempted to see pt. for occupational therapy evaluation. Pt. refused at this time due to pain. Nursing aware. Following.
[2023-12-03] MEDS: CEFEPIME 1 GM/NS 50 ML 1 GM/50 ML BAG IVPB (12:59)
[2023-12-03] MEDS: ACETAMINOPHEN 325 MG TABLET 650 MG PO (13:01)
--- NOTE | 2023-12-03 15:17 | PM.CNGS ---
Assessment and Plan Assessment and plan (1) Wound of right foot: Code(s): S91.301A - Unspecified open wound, right foot, initial encounter Status: Acute Assessment and Plan: I reviewed the x-ray and assessed the patient. He is well known to the surgical service and wound care nurses here at this hospital from prior problems with venous stasis wounds on his right lower extremity. The patient's wounds have actually been very stable and continuing to improve. There does not appear to be any signs of underlying abscess, gangrene, necrosis, or necrotizing fasciitis. Will continue local wound care and plan to get arterial duplex ultrasound to further assess for any inflow problems. The patient has been noncompliant with lymphedema treatment in the past. He does not elevate his legs as instructed and does not keep lymphedema wraps on his lower extremities as instructed. This will likely not see any significant improvement unless patient becomes more compliant. (2) Morbid obesity with body mass index (BMI) of 40.0 or higher: Code(s): E66.01 - Morbid (severe) obesity due to excess calories Status: Acute (3) Venous stasis dermatitis of both lower extremities: Code(s): I87.2 - Venous insufficiency (chronic) (peripheral) Status: Acute (4) Chronic congestive heart failure: Qualifiers: Heart failure type: combined systolic and diastolic Qualified Code(s): I50.42 - Chronic combined systolic (congestive) and diastolic (congestive) heart failure Code(s): I50.9 - Heart failure, unspecified Status: Chronic History of Present Illness Consult details Consult date: 12/03/23 Reason for consult: other (Right foot wound) Requesting physician: Fabby Camaerna, HEAD OF BIOLOGY Narrative: This is a 73-year-old man who presents with worsening foot pain. He was currently residing in [facility] and was complaining of worsening pain over the past several days. An x-ray was done at that facility which raised a question of a possible fracture. He was then sent to [facility] for further evaluation. Foot x-rays here did not show any evidence of fracture but did show soft tissue swelling. The patient has a chronic foot wound related to venous stasis dermatitis and has been seeing our wound Care Department for continued treatment recommendations. Currently his treatment has been progressing well. Unfortunately, the patient has not been compliant with other recommendations to help with chronic lower extremity lymphedema including leg elevation and lymphedema wraps. He has not seen a vascular surgeon in the past for these wounds. Review of Systems Review of Systems: All systems reviewed & are unremarkable except as noted in HPI and below Eyes: Eyes: Denies change in vision ENT: Denies hearing loss, Denies neck pain and Denies sore throat Cardiovascular: Cardiovascular: Denies chest pain and Denies dyspnea Respiratory: Respiratory: Denies cough, Denies dyspnea and Denies wheezing Gastrointestinal: Gastrointestinal: Denies abdominal pain and Denies change in bowel habits Genitourinary: Genitourinary: Denies hematuria and Denies dysuria Musculoskeletal: Musculoskeletal: Denies arthralgias, Denies joint swelling and Denies neck pain Integumentary/Breasts: Skin/Breast: Reports as per HPI Allergic/Immunologic: Allergic/Immunologic: Denies wheezing [facility] Past Medical History Medical History Atrial fibrillation Chronic acquired lymphedema Chronic anemia Chronic congestive heart failure Echocardiogram in May 2021 was technically difficult and showed normal LV systolic function with an EF of 60 to 65%, severely enlarged RV chamber with moderate to severely reduced RV systolic function, severe biatrial enlargement, and moderate pulmonary hypertension. Chronic kidney disease Chronic low back pain Chronic venous insufficiency Dyslipid
[2023-12-04] VITALS (7 sets, daily range): BP systolic 114–120; BP diastolic 56–66; PULSE 80–97; RESP 18; TEMP 36.4–37.2; O2SAT 97–100
[2023-12-04] MEDS: CEFEPIME 1 GM/NS 50 ML 1 GM/50 ML BAG IVPB ×2 (02:45→13:14)
[2023-12-04] MEDS: VANCOMYCIN 1,500 MG/NS 500 ML 1,500 MG/500 ML BAG 250 MG IVPB (03:15)
[2023-12-04] MEDS: LEVOTHYROXINE SODIUM 100 MCG TABLET 200 MCG PO (05:38)
[2023-12-04 06:44] LABS: Basophils Absolute Auto 0.1 K/mm3 (0.0-0.1); Eosinophils Absolute Auto 0.6 K/mm3 (0-0.3); Eosinophils Percent Auto 8.3 % (0-4.4); Hematocrit 33.4 % (42.0-52.0); Hemoglobin 10.6 g/dL (14.0-18.0); Immature Granulocyte Absolute 0.05 K/mm3 (0.00-0.031); Immature Granulocyte Percent A 0.7 % (0-0.5); Lymphocytes Absolute Auto 0.48 K/mm3 (0.9-3.2); Mean Corpuscular HGB Conc 31.7 g/dl (32-36); Mean Corpuscular Hemoglobin 28.9 pg (26-34); Mean Platelet Volume 9.8 fl (7.4-10.4); Monocytes Absolute Auto 0.6 K/mm3 (0.1-0.6); Neutrophils Absolute Auto 5.1 K/mm3 (1.3-6.7); Platelet Count Result 273 k/mm3 (150-375); Red Blood Count 3.67 M/mm3 (4.6-6.20); Red Cell Distribution Width 15.8 % (11.5-14.5); White Blood Count 6.9 K/mm3 (4.5-10.0)
[2023-12-04 06:56] LABS: Albumin Level 3.6 g/dL (3.5-5.1); Anion Gap 11 mmol/L (4-12); Blood Urea Nitrogen 28 mg/dL (9-20); Calcium 8.5 mg/dL (8.4-10.2); Carbon Dioxide 22 mmol/L (22-30); Chloride 98 mmol/L (98-107); Estimated CRCL calculation 54 ml/min; Estimated Glomerular Filt Rate 40; Glucose 105 mg/dL (65-110); Magnesium 2.1 mg/dL (1.6-2.3); Phosphorus 3.9 mg/dL (2.5-4.5); Potassium 3.6 mmol/L (3.4-5.0); Sodium 131 mmol/L (137-145)
[2023-12-04] MEDS: FAMOTIDINE 20 MG TABLET PO ×2 (08:22→20:08)
[2023-12-04] MEDS: allopurinoL 100 MG TABLET PO (08:22)
[2023-12-04] MEDS: DOCUSATE SODIUM 100 MG CAPSULE PO ×2 (08:22→20:08)
[2023-12-04] MEDS: METOPROLOL TARTRATE 50 MG TAB PO ×2 (08:22→20:07)
[2023-12-04] MEDS: minoxidiL 10 MG TABLET PO (08:22)
[2023-12-04] MEDS: LORATADINE 10 MG TABLET PO (08:23)
[2023-12-04] MEDS: acetaZOLAMIDE TAB 250 MG TABLET PO (08:23)
[2023-12-04] MEDS: calcitrioL 0.25 MCG CAPSULE PO (08:23)
[2023-12-04] MEDS: SPIRONOLACTONE 25 MG TABLET PO (08:23)
[2023-12-04] MEDS: APIXABAN 5 MG TABLET PO ×2 (08:23→20:08)
[2023-12-04] MEDS: GABAPENTIN 300 MG CAPSULE PO ×3 (08:23→17:30)
[2023-12-04] MEDS: TAMSULOSIN HCL 0.4 MG CAPSULE PO (08:23)
[2023-12-04] MEDS: LACTIC ACID 12% LOTION 225 BTL 1 APPLIC TOPICAL (08:23)
[2023-12-04] MEDS: metOLazone 5 MG TABLET PO (08:24)
[2023-12-04] MEDS: HYDROmorphone HCL INJ (*CRX) 1 MG/ML SYR IV PUSH ×3 (11:06→20:05)
--- NOTE | 2023-12-04 13:29 | PM.IMPN ---
Progress Note: A&P Assessment and Plan (1) Cellulitis of right foot: Code(s): L03.115 - Cellulitis of right lower limb Status: Acute Assessment and Plan: WBC improved from 12.2 to 6.9. Receiving IV Vancomycin and Cefepime. Blood cultures pending. Lactic acid 1.5 (2) Foot pain, right: Code(s): M79.671 - Pain in right foot Status: Acute Assessment and Plan: Improved. Patient receiving IV Hydromorphone and Tylenol PO. Foot X-ray negative for fracture here, X-ray at the outside facility mention possible fracture. RLE doppler is negative for DVT. (3) CKD (chronic kidney disease) stage 3, GFR 30-59 ml/min: Qualifiers: Chronic kidney disease stage 3 subtype: stage 3b (GFR 30-44) Qualified Code(s): N18.32 - Chronic kidney disease, stage 3b Code(s): N18.3 - Chronic kidney disease, stage 3 (moderate) Status: Acute Assessment and Plan: Improved. 12/03/23: Creatinine 1.90, GFR 35. 12/04/23: Creatinine 1.70, GFR 40. Follow labs. Hydrate. Avoid nephrotoxic medications. (4) Wound of right foot: Code(s): S91.301A - Unspecified open wound, right foot, initial encounter Status: Acute Assessment and Plan: Wound care consult ordered. Daily dressing changes. Elevate right foot. RLE doppler is negative for DVT. Patient seen by general surgery with plan to continue local wound care and plan to get arterial duplex ultrasound to further assess for any inflow problems. US arterial duplex LE BI results: Impression 1. Increased velocity gradient between right popliteal artery and peroneal artery, consistent with at least moderate stenosis. 2. Arterial vascular flow not visualized in right anterior tibial artery or dorsalis pedis. 3. Increased velocity gradient between left superficial femoral artery and popliteal artery, consistent with at least moderate stenosis. 4. Increased velocity gradient between left popliteal artery and peroneal artery, consistent with at least moderate stenosis. 3. Increased velocity gradient between left anterior tibial artery and left dorsalis pedis, consistent with at least moderate stenosis. (5) Hypokalemia: Code(s): E87.6 - Hypokalemia Status: Resolved Assessment and Plan: Improved. K+3.6 today. Will monitor labs. (6) Mobility impaired: Code(s): Z74.09 - Other reduced mobility Status: Acute Assessment and Plan: PT and OT for strengthening. (7) Chronic hyponatremia: Code(s): E87.1 - Hypo-osmolality and hyponatremia Status: Acute Assessment and Plan: 12/04/23: sodium 131. Monitor labs. Subjective Date/time seen: 12/04/23 13:29 Interval history: Patient is a 73yo male with HTN, CHF, AFib, AMELIA, CKD and lymphedema here for right foot pain. He was discharged from here on 11/14 after being hospitalized for 7 days for sepsis from RLE cellulitis. He was discharged to SNF on Levaquin for 4 more days. he was doing well with therapy until a few days prior to admission when he noted pain and swelling to the RLE. Symptoms worsened prompting this admission. No fever or chills. X-ray at the outside facility mention possible fracture. Pain is improving, pain is a .5 today in right foot, frequent, and aching. Review of Systems Constitutional: Constitutional: Denies chills, Reports headache(s) and Reports weakness ENT: Reports headache(s) and Reports nasal discharge (clear) Cardiovascular: Cardiovascular: Denies chest pain, Reports pedal edema, Reports leg edema, Denies palpitations and Reports dyspnea on exertion Respiratory: Respiratory: Reports cough and Reports dyspnea on exertion Gastrointestinal: Gastrointestinal: Reports constipation, Reports heartburn, Denies nausea and Denies vomiting Genitourinary: Genitourinary: Denies dysuria and Denies urinary frequency Musculoskeletal: Musculoskeletal: Reports numbness Integumentary/Breasts: Skin/Breast: Reports dry skin, Reports eryth
--- NOTE | 2023-12-04 15:22 | PM.PNGS ---
Progress Note: A&P Assessment and Plan (1) Wound of right foot: Code(s): S91.301A - Unspecified open wound, right foot, initial encounter Status: Acute Assessment and Plan: Arterial duplex US showed stenosis in the right lower extremity c/w peripheral arterial disease. We would recommend outpatient follow-up with vascular surgery, which was discussed with the patient and his daughter. Continue leg elevation and local wound care. I stressed the importance of compliance with his lymphedema treatment again today. No need for urgent surgical intervention at this time, we will sign off. (2) Venous stasis dermatitis of both lower extremities: Code(s): I87.2 - Venous insufficiency (chronic) (peripheral) Status: Acute (3) Peripheral vascular disease: Code(s): I73.9 - Peripheral vascular disease, unspecified Status: Acute Plan I have discussed the patient's case and plan of care with Dr. Malone. Subjective Subjective Date/Time Seen: 12/04/23 15:22 Patient reports: no new complaints and afebrile Interval history: No acute changes overnight. Exam Extrem: Other: Right foot and leg have chronic lymphedema and venous stasis dermatitis. Right foot dressing dry and intact. Objective Data Vital Signs Vital Signs: Vital Signs - 24 hr 12/03/23 21:54 12/03/23 22:09 12/03/23 20:00 Temperature 98.6 F Pulse Rate 94 94 Respiratory Rate 20 Blood Pressure 106/62 Pulse Oximetry 97 97 Oxygen Delivery CPAP Room Air 12/04/23 03:30 12/04/23 05:56 12/04/23 08:23 Temperature 97.6 F Pulse Rate 94 85 Respiratory Rate 18 Blood Pressure 116/56 L Pulse Oximetry 97 99 Oxygen Delivery CPAP Room Air 12/04/23 10:30 12/04/23 14:04 12/04/23 14:00 Temperature 98.2 F Pulse Rate 87 Respiratory Rate 18 Blood Pressure 114/64 Pulse Oximetry 100 Oxygen Delivery Room Air Room Air Intake/Output Intake/Output: Intake & Output 12/01/23 12/02/23 12/03/23 12/04/23 23:59 23:59 23:59 23:59 Intake Total 830 1730 Output Total 1550 1999 Balance -419 -303 Meds/Results Medications: Active Medications Generic Name Dose Route Start Last Admin Trade Name Freq PRN Reason Stop Dose Admin Acetaminophen 650 mg 12/03/23 04:46 12/03/23 13:01 Acetaminophen 325 Mg Tablet PO 650 mg Q4H PRN Administration Pain Rated 1-3 Acetazolamide 250 mg 12/03/23 09:00 12/04/23 08:23 Acetazolamide Tab 250 Mg Tablet PO 250 mg DAILY ANGELA Administration Allopurinol 100 mg 12/03/23 08:35 12/04/23 08:22 Allopurinol 100 Mg Tablet PO 100 mg DAILY@0800 ANGELA Administration Apixaban 5 mg 12/03/23 09:00 12/04/23 08:23 Apixaban 5 Mg Tablet PO 5 mg Q12HR ANGELA Administration Calcitriol 0.25 mcg 12/04/23 09:00 12/04/23 08:23 Calcitriol 0.25 Mcg Capsule PO 0.25 mcg MoWeFr@0900 [facility] Administration Docusate Sodium 100 mg 12/03/23 09:00 12/04/23 08:22 Docusate Sodium 100 Mg Capsule PO 100 mg Q12HR ANGELA Administration Famotidine 20 mg 12/03/23 09:00 12/04/23 08:22 Famotidine 20 Mg Tablet PO 20 mg Q12HR ANGELA Administration Fluticasone Propionate 1 spray 12/03/23 08:28 Fluticasone Propionate 0.05% Na Spr 16 Gm Btl (*Bkc) NASAL DAILY PRN Congestion Gabapentin 300 mg 12/03/23 09:00 12/04/23 13:14 Gabapentin 300 Mg Capsule PO 300 mg TID ANGELA Administration Hydromorphone HCl 1 mg 12/03/23 13:30 12/04/23 15:08 Hydromorphone Hcl Inj (*Crx) 1 Mg/Ml Syr IV PUSH 1 mg Q4H PRN Administration Pain Rated 7-10 Hydromorphone HCl 0.5 mg 12/03/23 13:28 Hydromorphone Hcl Inj (*Crx) 1 Mg/Ml Syr IV PUSH Q4H PRN Pain Rated 4-6 Vancomycin HCl 1,500 mg in 500 mls @ 250 mls/hr 12/04/23 03:00 12/04/23 05:15 Vancomycin 1,500 Mg/Ns 500 Ml IVPB Infused Q24H ANGELA Infusion Cefepime HCl 1 gm in 50 mls @ 100 mls/hr 12/03/23 14:00 09/04/24 13:14 Maxipime 1 Gm/Ns 5
--- NOTE | 2023-12-04 16:10 | PCPTNOTE ---
On 12/04/23, the student, [Jessica Castillo], provided care and completed [facility] documentation on this patient. I have reviewed the student's documentation and agree with the findings.
[2023-12-04] MEDS: EUCERIN CREAM 120 GM JAR 1 APPLIC TOPICAL (17:31)
[2023-12-04] MEDS: WATER FOR IRRIGATION, STERILE 1,000 ML BOTTLE 1000 ML (22:13)
[2023-12-05] VITALS (8 sets, daily range): BP systolic 111–131; BP diastolic 65–67; PULSE 84–96; RESP 18–20; TEMP 36.4–37.2; O2SAT 97–99
[2023-12-05] MEDS: CEFEPIME 1 GM/NS 50 ML 1 GM/50 ML BAG IVPB ×2 (01:46→13:24)
[2023-12-05] MEDS: HYDROmorphone HCL INJ (*CRX) 1 MG/ML SYR IV PUSH ×2 (01:50→05:47)
[2023-12-05 02:05] LABS: Basophils Absolute Auto 0.1 K/mm3 (0.0-0.1); Basophils Percent Auto 0.6 % (0.2-1.2); Eosinophils Absolute Auto 0.6 K/mm3 (0-0.3); Eosinophils Percent Auto 7.8 % (0-4.4); Hematocrit 31.5 % (42.0-52.0); Hemoglobin 10.1 g/dL (14.0-18.0); Immature Granulocyte Absolute 0.03 K/mm3 (0.00-0.031); Immature Granulocyte Percent A 0.4 % (0-0.5); Lymphocytes Percent Auto 7.6 % (18.3-44.2); Mean Corpuscular HGB Conc 32.1 g/dl (32-36); Mean Corpuscular Hemoglobin 29.1 pg (26-34); Mean Corpuscular Volume 90.8 fl (80-100); Mean Platelet Volume 9.6 fl (7.4-10.4); Monocytes Absolute Auto 0.8 K/mm3 (0.1-0.6); Monocytes Percent Auto 9.7 % (2.6-8.5); Neutrophils Absolute Auto 5.8 K/mm3 (1.3-6.7); Neutrophils Percent Auto 73.9 % (45.5-73.1); Platelet Count Result 261 k/mm3 (150-375); Red Blood Count 3.47 M/mm3 (4.6-6.20); Red Cell Distribution Width 15.7 % (11.5-14.5); White Blood Count 7.9 K/mm3 (4.5-10.0)
[2023-12-05 02:13] LABS: Estimated CRCL calculation 51 ml/min; Estimated Glomerular Filt Rate 37
[2023-12-05 02:15] LABS: Alanine Aminotransferase 8 U/L (6-50); Albumin Level 3.6 g/dL (3.5-5.1); Alkaline Phosphatase 63 U/L (38-126); Anion Gap 11 mmol/L (4-12); Aspartate Amino Transferase 13 U/L (17-59); Bilirubin,Total 0.6 mg/dL (0.2-1.3); Blood Urea Nitrogen 30 mg/dL (9-20); Carbon Dioxide 23 mmol/L (22-30); Chloride 96 mmol/L (98-107); Estimated CRCL calculation 51 ml/min; Estimated Glomerular Filt Rate 37; Glucose 116 mg/dL (65-110); Potassium 3.5 mmol/L (3.4-5.0); Sodium 130 mmol/L (137-145)
[2023-12-05 03:16] LABS: Vancomycin Trough 12.8 ug/mL (10.0-20.0)
[2023-12-05] MEDS: VANCOMYCIN 2,000 MG/NS 500 ML 2,000 MG/500 ML BAG 250 MG IVPB (04:00)
[2023-12-05] MEDS: LEVOTHYROXINE SODIUM 100 MCG TABLET 200 MCG PO (05:46)
[2023-12-05] MEDS: DOCUSATE SODIUM 100 MG CAPSULE PO ×2 (08:38→20:21)
[2023-12-05] MEDS: SPIRONOLACTONE 25 MG TABLET PO (08:39)
[2023-12-05] MEDS: acetaZOLAMIDE TAB 250 MG TABLET PO (08:39)
[2023-12-05] MEDS: APIXABAN 5 MG TABLET PO ×2 (08:39→20:22)
[2023-12-05] MEDS: LORATADINE 10 MG TABLET PO (08:39)
[2023-12-05] MEDS: minoxidiL 10 MG TABLET PO (08:39)
[2023-12-05] MEDS: allopurinoL 100 MG TABLET PO (08:39)
[2023-12-05] MEDS: METOPROLOL TARTRATE 50 MG TAB PO ×2 (08:39→20:21)
[2023-12-05] MEDS: GABAPENTIN 300 MG CAPSULE PO ×3 (08:39→17:18)
[2023-12-05] MEDS: FAMOTIDINE 20 MG TABLET PO ×2 (08:39→20:22)
[2023-12-05] MEDS: TAMSULOSIN HCL 0.4 MG CAPSULE PO (08:39)
[2023-12-05] MEDS: EUCERIN CREAM 120 GM JAR 1 APPLIC TOPICAL ×2 (08:41→17:19)
[2023-12-05] MEDS: LACTIC ACID 12% LOTION 225 BTL 1 APPLIC TOPICAL (08:42)
--- NOTE | 2023-12-05 11:16 | PCDIET ---
Nutrition consult for low protein: 6.0. Pt is on a heart healthy diet, intake 100% of meals at this time. Wound is to right foot, venous stasis. Orders for HEATHER BID are in place for wound healing. Agree with orders. Continue HEATHER upon discharge. No further nutrition recommendations at this time.
[2023-12-05] MEDS: HYDROmorphone HCL INJ (*CRX) 1 MG/ML SYR 0.5 MG IV PUSH (12:46)
--- NOTE | 2023-12-05 13:57 | PM.IMPN ---
Progress Note: A&P Assessment and Plan (1) Cellulitis of right foot: Code(s): L03.115 - Cellulitis of right lower limb Status: Acute Assessment and Plan: WBC improved from 12.2 to 7.9. Receiving IV Vancomycin and Cefepime. Blood cultures pending. Lactic acid 1.5 (2) Dyspnea: Qualifiers: Dyspnea type: shortness of breath Qualified Code(s): R06.02 - Shortness of breath Code(s): R06.00 - Dyspnea, unspecified Status: Acute Assessment and Plan: Patient reports feeling like having difficulty at times getting a good breath. Improves some with CPAP. Sa02 98% RA. Will check a chest X-ray. (3) Foot pain, right: Code(s): M79.671 - Pain in right foot Status: Acute Assessment and Plan: Improved. Patient receiving IV Hydromorphone and Tylenol PO. Foot X-ray negative for fracture here, X-ray at the outside facility mention possible fracture. RLE doppler is negative for DVT. (4) CKD (chronic kidney disease) stage 3, GFR 30-59 ml/min: Qualifiers: Chronic kidney disease stage 3 subtype: stage 3b (GFR 30-44) Qualified Code(s): N18.32 - Chronic kidney disease, stage 3b Code(s): N18.3 - Chronic kidney disease, stage 3 (moderate) Status: Acute Assessment and Plan: Improved. 9/06/22: Creatinine 1.90, GFR 35. 9/424: Creatinine 1.70, GFR 40. 9/5/24 : Creatinine 1.80. Follow labs. Hydrate. Avoid nephrotoxic medications. (5) Wound of right foot: Code(s): S91.301A - Unspecified open wound, right foot, initial encounter Status: Acute Assessment and Plan: Wound care consult ordered. Daily dressing changes. Elevate right foot. RLE doppler is negative for DVT. Patient seen by general surgery with plan to continue local wound care and plan to get arterial duplex ultrasound to further assess for any inflow problems. US arterial duplex LE BI results: Impression 1. Increased velocity gradient between right popliteal artery and peroneal artery, consistent with at least moderate stenosis. 2. Arterial vascular flow not visualized in right anterior tibial artery or dorsalis pedis. 3. Increased velocity gradient between left superficial femoral artery and popliteal artery, consistent with at least moderate stenosis. 4. Increased velocity gradient between left popliteal artery and peroneal artery, consistent with at least moderate stenosis. 3. Increased velocity gradient between left anterior tibial artery and left dorsalis pedis, consistent with at least moderate stenosis. (6) Mobility impaired: Code(s): Z74.09 - Other reduced mobility Status: Acute Assessment and Plan: PT and OT for strengthening. (7) Chronic hyponatremia: Code(s): E87.1 - Hypo-osmolality and hyponatremia Status: Acute Assessment and Plan: 12/05/23: sodium 130. Monitor labs. (8) Mild protein malnutrition: Code(s): E44.1 - Mild protein-calorie malnutrition Status: Acute Assessment and Plan: Protein 6.0. Added Lex BID. Outside [employer] consult completed. Subjective Date/time seen: 12/05/23 13:57 Interval history: Patient is a 73yo male with HTN, CHF, AFib, AMELIA, CKD and lymphedema here for right foot pain. He was discharged from here on 11/14 after being hospitalized for 7 days for sepsis from RLE cellulitis. He was discharged to SNF on Levaquin for 4 more days. he was doing well with therapy until a few days prior to admission when he noted pain and swelling to the RLE. Symptoms worsened prompting this admission. No fever or chills. X-ray at the outside facility mention possible fracture. Pain is improving, pain is a 2 today in right foot, frequent, and aching. Patient reports feeling like having difficulty at times getting a good breath. Improves some with CPAP. Sa02 98% RA. Will check a chest X-ray. Review of Systems Constitutional: Constitutional: Denies chills, Reports headache(s) and Reports weakness ENT: Reports
--- NOTE | 2023-12-05 14:39 | PCPTNOTE ---
Attempted to see patient for PT at this time, however patient declined stating he just recieved pain medication and he continues to have intermittent 5 out of 10 pain in R foot. PT will continue to follow per plan of care.
[2023-12-05] MEDS: polyethylene glycoL 3350 17 GM POWD.PACK PO (17:18)
[2023-12-06 00:21] VITALS: O2SAT 98
[2023-12-06] MEDS: CEFEPIME 1 GM/NS 50 ML 1 GM/50 ML BAG IVPB (02:26)
[2023-12-06] MEDS: VANCOMYCIN 2,000 MG/NS 500 ML 2,000 MG/500 ML BAG 250 MG IVPB (04:57)
[2023-12-06 05:29] VITALS: BP 113/63; PULSE 79; RESP 20; TEMP 36.6; O2SAT 100
[2023-12-06] MEDS: LEVOTHYROXINE SODIUM 100 MCG TABLET 200 MCG PO (05:52)
[2023-12-06 07:06] LABS: Basophils Absolute Auto 0.1 K/mm3 (0.0-0.1); Basophils Percent Auto 0.9 % (0.2-1.2); Eosinophils Absolute Auto 0.5 K/mm3 (0-0.3); Hematocrit 32.9 % (42.0-52.0); Hemoglobin 10.5 g/dL (14.0-18.0); Immature Granulocyte Absolute 0.05 K/mm3 (0.00-0.031); Immature Granulocyte Percent A 0.8 % (0-0.5); Lymphocytes Absolute Auto 0.57 K/mm3 (0.9-3.2); Lymphocytes Percent Auto 8.8 % (18.3-44.2); Mean Corpuscular HGB Conc 31.9 g/dl (32-36); Mean Corpuscular Hemoglobin 28.9 pg (26-34); Mean Corpuscular Volume 90.6 fl (80-100); Mean Platelet Volume 10.2 fl (7.4-10.4); Monocytes Absolute Auto 0.5 K/mm3 (0.1-0.6); Monocytes Percent Auto 8.2 % (2.6-8.5); Neutrophils Absolute Auto 4.8 K/mm3 (1.3-6.7); Neutrophils Percent Auto 73.3 % (45.5-73.1); Platelet Count Result 238 k/mm3 (150-375); Red Blood Count 3.63 M/mm3 (4.6-6.20); Red Cell Distribution Width 15.5 % (11.5-14.5); White Blood Count 6.5 K/mm3 (4.5-10.0)
[2023-12-06 07:29] LABS: Alanine Aminotransferase 9 U/L (6-50); Albumin Level 3.6 g/dL (3.5-5.1); Alkaline Phosphatase 62 U/L (38-126); Anion Gap 11 mmol/L (4-12); Aspartate Amino Transferase 15 U/L (17-59); Bilirubin,Total 0.6 mg/dL (0.2-1.3); Blood Urea Nitrogen 29 mg/dL (9-20); Calcium 8.8 mg/dL (8.4-10.2); Carbon Dioxide 24 mmol/L (22-30); Chloride 97 mmol/L (98-107); Estimated CRCL calculation 65 ml/min; Estimated Glomerular Filt Rate 50; Glucose 102 mg/dL (65-110); Potassium 3.7 mmol/L (3.4-5.0); Sodium 132 mmol/L (137-145)
[2023-12-06 08:07] VITALS: PULSE 79
[2023-12-06] MEDS: SPIRONOLACTONE 25 MG TABLET PO (08:07)
[2023-12-06] MEDS: METOPROLOL TARTRATE 50 MG TAB PO ×2 (08:07→22:09)
[2023-12-06] MEDS: TAMSULOSIN HCL 0.4 MG CAPSULE PO (08:07)
[2023-12-06] MEDS: GABAPENTIN 300 MG CAPSULE PO ×2 (08:07→17:11)
[2023-12-06] MEDS: minoxidiL 10 MG TABLET PO (08:07)
[2023-12-06] MEDS: DOCUSATE SODIUM 100 MG CAPSULE PO ×2 (08:07→22:09)
[2023-12-06] MEDS: LACTIC ACID 12% LOTION 225 BTL 1 APPLIC TOPICAL (08:08)
[2023-12-06] MEDS: acetaZOLAMIDE TAB 250 MG TABLET PO (08:08)
[2023-12-06] MEDS: FAMOTIDINE 20 MG TABLET PO ×2 (08:08→22:10)
[2023-12-06] MEDS: LORATADINE 10 MG TABLET PO (08:08)
[2023-12-06] MEDS: APIXABAN 5 MG TABLET PO ×2 (08:08→22:10)
[2023-12-06] MEDS: allopurinoL 100 MG TABLET PO (08:08)
[2023-12-06] MEDS: EUCERIN CREAM 120 GM JAR 1 APPLIC TOPICAL ×2 (08:09→17:11)
[2023-12-06] MEDS: calcitrioL 0.25 MCG CAPSULE PO (08:13)
[2023-12-06] MEDS: metOLazone 5 MG TABLET PO (08:13)
[2023-12-06] MEDS: HYDROmorphone HCL INJ (*CRX) 1 MG/ML SYR IV PUSH (11:03)
[2023-12-06] MEDS: ONDANSETRON INJ 4 MG/2 ML VIAL IV PUSH (12:31)
--- NOTE | 2023-12-06 12:54 | PM.IMPN ---
Progress Note: A&P Assessment and Plan (1) Cellulitis of right foot: Code(s): L03.115 - Cellulitis of right lower limb Status: Acute (2) Dyspnea: Qualifiers: Dyspnea type: shortness of breath Qualified Code(s): R06.02 - Shortness of breath Code(s): R06.00 - Dyspnea, unspecified Status: Acute (3) Foot pain, right: Code(s): M79.671 - Pain in right foot Status: Acute (4) CKD (chronic kidney disease) stage 3, GFR 30-59 ml/min: Qualifiers: Chronic kidney disease stage 3 subtype: stage 3b (GFR 30-44) Qualified Code(s): N18.32 - Chronic kidney disease, stage 3b Code(s): N18.3 - Chronic kidney disease, stage 3 (moderate) Status: Acute (5) Wound of right foot: Code(s): S91.301A - Unspecified open wound, right foot, initial encounter Status: Acute (6) Mobility impaired: Code(s): Z74.09 - Other reduced mobility Status: Acute (7) Chronic hyponatremia: Code(s): E87.1 - Hypo-osmolality and hyponatremia Status: Acute (8) Mild protein malnutrition: Code(s): E44.1 - Mild protein-calorie malnutrition Status: Acute Plan Patient is a 73yo male with HTN, CHF, AFib, AMELIA, CKD and lymphedema here for right foot pain. He was discharged from here on 11/14 after being hospitalized for 7 days for sepsis from RLE cellulitis. He was discharged to SNF on Levaquin for 4 more days. he was doing well with therapy until a few days prior to admission when he noted pain and swelling to the RLE. Symptoms worsened prompting this admission. No fever or chills. X-ray at the outside facility mention possible fracture. Repeat x-ray with soft tissue swelling. Patient started on vancomycin and cefepime. General surgery consulted. Leukocytosis improving. Blood culture no growth to date. Will get wound culture. Recent wound culture grew MSSA and Pseudomonas. QTC prolonged. Will not be a candidate for fluoroquinolones. Will remain on cefepime. Will stop IV vancomycin. No prior MRSA noted Chest x-ray with pulmonary vascular congestion. Not in overt heart failure. CKD stage 3/4 creatinine at 1.7-1.9 continue to monitor Right lower leg venous duplex negative for DVT. Arterial duplex with moderate peripheral vascular disease noted. Will need to see vascular surgery as an outpatient basis. Wound Care to follow General surgery consulted. Impaired mobility Chronic hyponatremia DVT prophylaxis on apixaban Code status full code Chronic diastolic congestive heart failure. Echo 04/2022 with EF 65-70% diastolic dysfunction grade 1 Subjective Date/time seen: 12/06/23 12:54 Interval history: no overnight events, no fever, chills. right leg pain and swellig still persist. no abdominal pain, nausea, vomiting. Review of Systems Review of Systems: All systems reviewed & are unremarkable except as noted in HPI and below Exam Narrative: APPEARANCE: No apparent distress. Alert and oriented x3 Head: atraumatic. Normocephalic EYES: EOMI, PERRLA NOSE: Atraumatic RESPIRATORY: No increased rate of breathing CTAB CARDIOVASCULAR: RRR, EXTREMITY: Significant lymphedema of both lower extremities, the right leg is pink from the ankle up through the calf. Patient has full-thickness loss of skin over the top of the foot with beefy red tissue. Foot is warm with brisk capillary unable to palpate pulses. ABDOMINAL: Non-distended soft nontender MUSCULOSKELETAl: No obvious deformities NEURO: Alert. Lower extremity weakness PSYCHIATRIC: Normal affect Objective Data Vital Signs Vital Signs: Vital Signs - 24 hr 12/05/23 14:00 12/05/23 20:13 12/05/23 20:21 Temperature 97.5 F L 99.0 F Pulse Rate 86 95 96 Respiratory Rate 18 20 Blood Pressure 117/67 131/65 Pulse Oximetry 99 98 Oxygen Delivery Oxygen Flow Rate 12/05/23 23:35 12/06/23 00:21 12/06/23 05:29 Temperature 97.9 F Pulse Rate 94 79 Respiratory Rate
[2023-12-06 14:00] VITALS: BP 115/53; PULSE 79; RESP 14; TEMP 36.3; O2SAT 99
--- NOTE | 2023-12-06 14:38 | PCOTNOTE ---
Attempted to see patient for P.M. session this date. Patient stated he would love to participate in therapy but he is severely nauseated and unable to tolerate anything at this time. Patient states RN is aware and has tried giving him something to help, nothing is helping right now.
[2023-12-06] MEDS: CEFEPIME 2 GM/NS 50 ML 2 GM/50 ML BAG IVPB (17:11)
[2023-12-06 21:38] VITALS: BP 136/62; PULSE 76; RESP 22; TEMP 36.7; O2SAT 100
[2023-12-06] MEDS: ACETAMINOPHEN 325 MG TABLET 650 MG PO (22:09)
[2023-12-06 22:12] VITALS: PULSE 90; O2SAT 99
[2023-12-07] MEDS: HYDROmorphone HCL INJ (*CRX) 1 MG/ML SYR 0.5 MG IV PUSH (04:53)
[2023-12-07] MEDS: ONDANSETRON INJ 4 MG/2 ML VIAL IV PUSH (04:53)
[2023-12-07 05:38] LABS: Basophils Absolute Auto 0.1 K/mm3 (0.0-0.1); Basophils Percent Auto 0.6 % (0.2-1.2); Eosinophils Absolute Auto 0.5 K/mm3 (0-0.3); Eosinophils Percent Auto 6.6 % (0-4.4); Hematocrit 33.8 % (42.0-52.0); Hemoglobin 10.9 g/dL (14.0-18.0); Immature Granulocyte Absolute 0.04 K/mm3 (0.00-0.031); Immature Granulocyte Percent A 0.5 % (0-0.5); Lymphocytes Absolute Auto 0.59 K/mm3 (0.9-3.2); Lymphocytes Percent Auto 7.2 % (18.3-44.2); Mean Corpuscular HGB Conc 32.2 g/dl (32-36); Mean Corpuscular Hemoglobin 29.2 pg (26-34); Mean Corpuscular Volume 90.6 fl (80-100); Mean Platelet Volume 9.9 fl (7.4-10.4); Monocytes Absolute Auto 0.7 K/mm3 (0.1-0.6); Monocytes Percent Auto 8.7 % (2.6-8.5); Neutrophils Absolute Auto 6.2 K/mm3 (1.3-6.7); Neutrophils Percent Auto 76.4 % (45.5-73.1); Platelet Count Result 241 k/mm3 (150-375); Red Blood Count 3.73 M/mm3 (4.6-6.20); Red Cell Distribution Width 15.5 % (11.5-14.5); White Blood Count 8.1 K/mm3 (4.5-10.0)
[2023-12-07 06:00] VITALS: BP 111/58; PULSE 75; RESP 20; TEMP 36.7; O2SAT 100
[2023-12-07 06:02] LABS: Alanine Aminotransferase 9 U/L (6-50); Albumin Level 3.7 g/dL (3.5-5.1); Alkaline Phosphatase 67 U/L (38-126); Anion Gap 9 mmol/L (4-12); Aspartate Amino Transferase 16 U/L (17-59); Bilirubin,Total 0.6 mg/dL (0.2-1.3); Blood Urea Nitrogen 29 mg/dL (9-20); Calcium 9.2 mg/dL (8.4-10.2); Carbon Dioxide 25 mmol/L (22-30); Chloride 97 mmol/L (98-107); Estimated CRCL calculation 57 ml/min; Estimated Glomerular Filt Rate 42; Glucose 107 mg/dL (65-110); Magnesium 2.1 mg/dL (1.6-2.3); Potassium 3.7 mmol/L (3.4-5.0); Sodium 131 mmol/L (137-145)
[2023-12-07] MEDS: LEVOTHYROXINE SODIUM 100 MCG TABLET 200 MCG PO (06:20)
--- NOTE | 2023-12-07 08:45 | PM.IMPN ---
Progress Note: A&P Assessment and Plan (1) Cellulitis of right foot: Code(s): L03.115 - Cellulitis of right lower limb Status: Acute (2) Dyspnea: Qualifiers: Dyspnea type: shortness of breath Qualified Code(s): R06.02 - Shortness of breath Code(s): R06.00 - Dyspnea, unspecified Status: Acute (3) Foot pain, right: Code(s): M79.671 - Pain in right foot Status: Acute (4) CKD (chronic kidney disease) stage 3, GFR 30-59 ml/min: Qualifiers: Chronic kidney disease stage 3 subtype: stage 3b (GFR 30-44) Qualified Code(s): N18.32 - Chronic kidney disease, stage 3b Code(s): N18.3 - Chronic kidney disease, stage 3 (moderate) Status: Acute (5) Wound of right foot: Code(s): S91.301A - Unspecified open wound, right foot, initial encounter Status: Acute (6) Mobility impaired: Code(s): Z74.09 - Other reduced mobility Status: Acute (7) Chronic hyponatremia: Code(s): E87.1 - Hypo-osmolality and hyponatremia Status: Acute (8) Mild protein malnutrition: Code(s): E44.1 - Mild protein-calorie malnutrition Status: Acute Plan Patient is a 73yo male with HTN, CHF, AFib, AMELIA, CKD and lymphedema here for right foot pain. He was discharged from here on 11/14 after being hospitalized for 7 days for sepsis from RLE cellulitis. He was discharged to SNF on Levaquin for 4 more days. he was doing well with therapy until a few days prior to admission when he noted pain and swelling to the RLE. Symptoms worsened prompting this admission. No fever or chills. X-ray at the outside facility mention possible fracture. Repeat x-ray with soft tissue swelling. Patient started on vancomycin and cefepime. General surgery consulted. Leukocytosis improving. Blood culture no growth to date. Will get wound culture. Recent wound culture grew MSSA and Pseudomonas. QTC prolonged. Will not be a candidate for fluoroquinolones. Will remain on cefepime. Will stop IV vancomycin. No prior MRSA noted. Repeat the wound culture pending Chest x-ray with pulmonary vascular congestion. Not in overt heart failure. CKD stage 3/4 creatinine at 1.7-1.9 continue to monitor Right lower leg venous duplex negative for DVT. Arterial duplex with moderate peripheral vascular disease noted. Will need to see vascular surgery as an outpatient basis. Wound Care to follow General surgery consulted. Impaired mobility Chronic hyponatremia DVT prophylaxis on apixaban Code status full code Chronic diastolic congestive heart failure. Echo 04/2022 with EF 65-70% diastolic dysfunction grade 1 Subjective Date/time seen: 12/07/23 08:45 Interval history: No overnight events. No new complaints. Dressing changes ongoing. Remains afebrile. Uses CPAP at night. Review of Systems Review of Systems: All systems reviewed & are unremarkable except as noted in HPI and below Exam Narrative: APPEARANCE: No apparent distress. Alert and oriented x3 Head: atraumatic. Normocephalic EYES: EOMI, PERRLA NOSE: Atraumatic RESPIRATORY: No increased rate of breathing CTAB CARDIOVASCULAR: RRR, EXTREMITY: Significant lymphedema of both lower extremities, with stasis dermatitis. Dressing In place which is clean dry and intact ABDOMINAL: Non-distended soft nontender MUSCULOSKELETAl: No obvious deformities NEURO: Alert. Lower extremity weakness PSYCHIATRIC: Normal affect Objective Data Vital Signs Vital Signs: Vital Signs - 24 hr 12/06/23 14:00 12/06/23 19:38 12/06/23 21:38 Temperature 97.3 F L 98.0 F Pulse Rate 79 76 Respiratory Rate 14 22 H Blood Pressure 115/53 L 136/62 Pulse Oximetry 99 100 Oxygen Delivery CPAP 12/06/23 22:12 12/07/23 01:51 12/07/23 06:00 Temperature 98.0 F Pulse Rate 90 75 Respiratory Rate 20 Blood Pressure 111/58 L Pulse Oximetry 99 100 Oxygen Delivery CPAP CPAP Intake/Output Intake/Output: Intak
[2023-12-07] MEDS: acetaZOLAMIDE TAB 250 MG TABLET PO (11:13)
[2023-12-07] MEDS: SPIRONOLACTONE 25 MG TABLET PO (11:13)
[2023-12-07] MEDS: allopurinoL 100 MG TABLET PO (11:13)
[2023-12-07] MEDS: FAMOTIDINE 20 MG TABLET PO ×2 (11:13→20:09)
[2023-12-07] MEDS: CEFEPIME 2 GM/NS 50 ML 2 GM/50 ML BAG IVPB ×2 (11:13→20:10)
[2023-12-07] MEDS: TAMSULOSIN HCL 0.4 MG CAPSULE PO (11:13)
[2023-12-07] MEDS: GABAPENTIN 300 MG CAPSULE PO ×3 (11:14→18:41)
[2023-12-07] MEDS: DOCUSATE SODIUM 100 MG CAPSULE PO ×2 (11:14→20:09)
[2023-12-07 11:15] VITALS: PULSE 75
[2023-12-07] MEDS: METOPROLOL TARTRATE 50 MG TAB PO ×2 (11:15→20:09)
[2023-12-07] MEDS: LORATADINE 10 MG TABLET PO (11:15)
[2023-12-07] MEDS: minoxidiL 10 MG TABLET PO (11:16)
[2023-12-07] MEDS: APIXABAN 5 MG TABLET PO ×2 (11:41→20:10)
[2023-12-07] MEDS: metOLazone 5 MG TABLET PO (11:41)
[2023-12-07] MEDS: EUCERIN CREAM 120 GM JAR 1 APPLIC TOPICAL ×2 (11:42→18:46)
[2023-12-07] MEDS: LACTIC ACID 12% LOTION 225 BTL 1 APPLIC TOPICAL (11:42)
[2023-12-07 14:14] VITALS: BP 115/79; PULSE 70; RESP 21; TEMP 36; O2SAT 99
[2023-12-07] MEDS: ACETAMINOPHEN 325 MG TABLET 650 MG PO (20:08)
[2023-12-07 20:09] VITALS: PULSE 87
[2023-12-07 20:23] VITALS: TEMP 37.8
[2023-12-07 21:13] VITALS: BP 109/56; PULSE 88; RESP 20; TEMP 37.1; O2SAT 98
[2023-12-08 06:00] VITALS: BP 140/62; PULSE 71; RESP 22; TEMP 36.7; O2SAT 98
[2023-12-08] MEDS: LEVOTHYROXINE SODIUM 100 MCG TABLET 200 MCG PO (06:02)
[2023-12-08 06:08] LABS: Basophils Absolute Auto 0.1 K/mm3 (0.0-0.1); Basophils Percent Auto 0.8 % (0.2-1.2); Eosinophils Absolute Auto 0.5 K/mm3 (0-0.3); Eosinophils Percent Auto 7.2 % (0-4.4); Hematocrit 32.3 % (42.0-52.0); Hemoglobin 10.4 g/dL (14.0-18.0); Immature Granulocyte Absolute 0.04 K/mm3 (0.00-0.031); Immature Granulocyte Percent A 0.6 % (0-0.5); Lymphocytes Absolute Auto 0.67 K/mm3 (0.9-3.2); Lymphocytes Percent Auto 10.7 % (18.3-44.2); Mean Corpuscular HGB Conc 32.2 g/dl (32-36); Mean Corpuscular Hemoglobin 29.1 pg (26-34); Mean Corpuscular Volume 90.2 fl (80-100); Mean Platelet Volume 10.4 fl (7.4-10.4); Monocytes Absolute Auto 0.6 K/mm3 (0.1-0.6); Monocytes Percent Auto 9.6 % (2.6-8.5); Neutrophils Absolute Auto 4.5 K/mm3 (1.3-6.7); Neutrophils Percent Auto 71.1 % (45.5-73.1); Platelet Count Result 224 k/mm3 (150-375); Red Blood Count 3.58 M/mm3 (4.6-6.20); Red Cell Distribution Width 15.7 % (11.5-14.5); White Blood Count 6.3 K/mm3 (4.5-10.0)
[2023-12-08 06:23] LABS: Alanine Aminotransferase 8 U/L (6-50); Albumin Level 3.5 g/dL (3.5-5.1); Alkaline Phosphatase 58 U/L (38-126); Anion Gap 9 mmol/L (4-12); Aspartate Amino Transferase 16 U/L (17-59); Bilirubin,Total 0.6 mg/dL (0.2-1.3); Blood Urea Nitrogen 26 mg/dL (9-20); Calcium 9.3 mg/dL (8.4-10.2); Carbon Dioxide 26 mmol/L (22-30); Chloride 97 mmol/L (98-107); Estimated CRCL calculation 57 ml/min; Estimated Glomerular Filt Rate 42; Glucose 96 mg/dL (65-110); Potassium 3.5 mmol/L (3.4-5.0); Sodium 132 mmol/L (137-145)
[2023-12-08 08:26] VITALS: PULSE 71
[2023-12-08] MEDS: acetaZOLAMIDE TAB 250 MG TABLET PO (08:26)
[2023-12-08] MEDS: LORATADINE 10 MG TABLET PO (08:26)
[2023-12-08] MEDS: allopurinoL 100 MG TABLET PO (08:26)
[2023-12-08] MEDS: DOCUSATE SODIUM 100 MG CAPSULE PO ×2 (08:26→21:07)
[2023-12-08] MEDS: SPIRONOLACTONE 25 MG TABLET PO (08:26)
[2023-12-08] MEDS: APIXABAN 5 MG TABLET PO ×2 (08:26→21:07)
[2023-12-08] MEDS: GABAPENTIN 300 MG CAPSULE PO ×3 (08:26→18:02)
[2023-12-08] MEDS: minoxidiL 10 MG TABLET PO (08:26)
[2023-12-08] MEDS: TAMSULOSIN HCL 0.4 MG CAPSULE PO (08:26)
[2023-12-08] MEDS: FAMOTIDINE 20 MG TABLET PO ×2 (08:26→21:07)
[2023-12-08] MEDS: METOPROLOL TARTRATE 50 MG TAB PO ×2 (08:26→21:08)
[2023-12-08] MEDS: CEFEPIME 2 GM/NS 50 ML 2 GM/50 ML BAG IVPB ×2 (08:27→22:42)
[2023-12-08] MEDS: LACTIC ACID 12% LOTION 225 BTL 1 APPLIC TOPICAL (08:32)
[2023-12-08] MEDS: EUCERIN CREAM 120 GM JAR 1 APPLIC TOPICAL ×2 (08:33→18:10)
--- NOTE | 2023-12-08 13:00 | PM.IMPN ---
Progress Note: A&P Assessment and Plan (1) Cellulitis of right foot: Code(s): L03.115 - Cellulitis of right lower limb Status: Acute (2) Dyspnea: Qualifiers: Dyspnea type: shortness of breath Qualified Code(s): R06.02 - Shortness of breath Code(s): R06.00 - Dyspnea, unspecified Status: Acute (3) Foot pain, right: Code(s): M79.671 - Pain in right foot Status: Acute (4) CKD (chronic kidney disease) stage 3, GFR 30-59 ml/min: Qualifiers: Chronic kidney disease stage 3 subtype: stage 3b (GFR 30-44) Qualified Code(s): N18.32 - Chronic kidney disease, stage 3b Code(s): N18.3 - Chronic kidney disease, stage 3 (moderate) Status: Acute (5) Wound of right foot: Code(s): S91.301A - Unspecified open wound, right foot, initial encounter Status: Acute (6) Mobility impaired: Code(s): Z74.09 - Other reduced mobility Status: Acute (7) Chronic hyponatremia: Code(s): E87.1 - Hypo-osmolality and hyponatremia Status: Acute (8) Mild protein malnutrition: Code(s): E44.1 - Mild protein-calorie malnutrition Status: Acute Plan Patient is a 73yo male with HTN, CHF, AFib, AMELIA, CKD and lymphedema here for right foot pain. He was discharged from here on 11/14 after being hospitalized for 7 days for sepsis from RLE cellulitis. He was discharged to SNF on Levaquin for 4 more days. he was doing well with therapy until a few days prior to admission when he noted pain and swelling to the RLE. Symptoms worsened prompting this admission. No fever or chills. X-ray at the outside facility mention possible fracture. Repeat x-ray with soft tissue swelling. Patient started on vancomycin and cefepime. General surgery consulted. Leukocytosis improving. Blood culture no growth to date. Will get wound culture. Recent wound culture grew MSSA and Pseudomonas. QTC prolonged. Will not be a candidate for fluoroquinolones. Will remain on cefepime. Will stop IV vancomycin. No prior MRSA noted. Repeat the wound culture pending Chest x-ray with pulmonary vascular congestion. Not in overt heart failure. CKD stage 3/4 creatinine at 1.7-1.9 continue to monitor Right lower leg venous duplex negative for DVT. Arterial duplex with moderate peripheral vascular disease noted. Will need to see vascular surgery as an outpatient basis. Wound Care to follow General surgery consulted. Impaired mobility Chronic hyponatremia DVT prophylaxis on apixaban Code status full code Chronic diastolic congestive heart failure. Echo 04/2022 with EF 65-70% diastolic dysfunction grade 1 Disposition: Going to [facility] for further rehabilitation Subjective Date/time seen: 12/08/23 13:00 Interval history: had a spike spike a fever last night. No other complaints Review of Systems Review of Systems: All systems reviewed & are unremarkable except as noted in HPI and below Exam Narrative: APPEARANCE: No apparent distress. Alert and oriented x3 Head: atraumatic. Normocephalic EYES: EOMI, PERRLA NOSE: Atraumatic RESPIRATORY: No increased rate of breathing CTAB CARDIOVASCULAR: RRR, EXTREMITY: Significant lymphedema of both lower extremities, with stasis dermatitis. Dressing In place which is clean dry and intact ABDOMINAL: Non-distended soft nontender MUSCULOSKELETAl: No obvious deformities NEURO: Alert. Lower extremity weakness PSYCHIATRIC: Normal affect Objective Data Vital Signs Vital Signs: Vital Signs - 24 hr 12/07/23 14:14 12/07/23 20:09 12/07/23 21:08 Temperature 96.8 F L Pulse Rate 70 87 Respiratory Rate 21 H Blood Pressure 115/79 Pulse Oximetry 99 Oxygen Delivery CPAP 12/07/23 20:23 12/07/23 21:13 12/07/23 23:42 Temperature 100.1 F H 98.7 F Pulse Rate 88 Respiratory Rate 20 Blood Pressure 109/56 L Pulse Oximetry 98 Oxygen Delivery CPAP 12/08/23 03:47 12/08/23 06:00 12/08/23
[2023-12-08 14:00] VITALS: BP 114/56; PULSE 81; RESP 18; TEMP 35.9; O2SAT 100
[2023-12-08] MEDS: polyethylene glycoL 3350 17 GM POWD.PACK PO (14:13)
[2023-12-08] MEDS: ONDANSETRON INJ 4 MG/2 ML VIAL IV PUSH (18:06)
[2023-12-08] MEDS: HYDROmorphone HCL INJ (*CRX) 1 MG/ML SYR 0.5 MG IV PUSH (18:14)
[2023-12-08] MEDS: VANCOMYCIN 1,250 MG/NS 250 ML 1,250 MG/250 ML BAG 166.67 MG IVPB ×2 (18:23→21:28)
[2023-12-08 22:00] VITALS: BP 113/58; PULSE 88; RESP 12; TEMP 36.8; O2SAT 99
[2023-12-09] MEDS: LEVOTHYROXINE SODIUM 100 MCG TABLET 200 MCG PO (05:54)
[2023-12-09 06:00] VITALS: BP 138/62; PULSE 73; RESP 16; TEMP 36.2; O2SAT 100
[2023-12-09 07:40] LABS: Basophils Absolute Auto 0.1 K/mm3 (0.0-0.1); Basophils Percent Auto 0.7 % (0.2-1.2); Eosinophils Absolute Auto 0.4 K/mm3 (0-0.3); Eosinophils Percent Auto 6.1 % (0-4.4); Hematocrit 33.8 % (42.0-52.0); Hemoglobin 10.6 g/dL (14.0-18.0); Immature Granulocyte Absolute 0.05 K/mm3 (0.00-0.031); Immature Granulocyte Percent A 0.7 % (0-0.5); Lymphocytes Absolute Auto 0.54 K/mm3 (0.9-3.2); Lymphocytes Percent Auto 7.5 % (18.3-44.2); Mean Corpuscular HGB Conc 31.4 g/dl (32-36); Mean Corpuscular Hemoglobin 28.7 pg (26-34); Mean Corpuscular Volume 91.6 fl (80-100); Mean Platelet Volume 10.7 fl (7.4-10.4); Monocytes Absolute Auto 0.6 K/mm3 (0.1-0.6); Monocytes Percent Auto 8.4 % (2.6-8.5); Neutrophils Absolute Auto 5.6 K/mm3 (1.3-6.7); Neutrophils Percent Auto 76.6 % (45.5-73.1); Platelet Count Result 231 k/mm3 (150-375); Red Blood Count 3.69 M/mm3 (4.6-6.20); Red Cell Distribution Width 15.7 % (11.5-14.5); White Blood Count 7.2 K/mm3 (4.5-10.0)
[2023-12-09] MEDS: GABAPENTIN 300 MG CAPSULE PO ×2 (08:11→16:51)
[2023-12-09] MEDS: SPIRONOLACTONE 25 MG TABLET PO (08:11)
[2023-12-09] MEDS: LORATADINE 10 MG TABLET PO (08:11)
[2023-12-09] MEDS: acetaZOLAMIDE TAB 250 MG TABLET PO (08:11)
[2023-12-09] MEDS: FAMOTIDINE 20 MG TABLET PO (08:11)
[2023-12-09] MEDS: APIXABAN 5 MG TABLET PO (08:11)
[2023-12-09] MEDS: TAMSULOSIN HCL 0.4 MG CAPSULE PO (08:11)
[2023-12-09] MEDS: CEFEPIME 2 GM/NS 50 ML 2 GM/50 ML BAG IVPB (08:11)
[2023-12-09] MEDS: METOPROLOL TARTRATE 50 MG TAB PO (08:11)
[2023-12-09] MEDS: DOCUSATE SODIUM 100 MG CAPSULE PO (08:11)
[2023-12-09] MEDS: minoxidiL 10 MG TABLET PO (08:11)
[2023-12-09] MEDS: allopurinoL 100 MG TABLET PO (08:11)
[2023-12-09] MEDS: EUCERIN CREAM 120 GM JAR 1 APPLIC TOPICAL ×2 (08:12→16:51)
[2023-12-09] MEDS: LACTIC ACID 12% LOTION 225 BTL 1 APPLIC TOPICAL (08:12)
[2023-12-09] MEDS: metOLazone 5 MG TABLET PO (08:14)
[2023-12-09] MEDS: calcitrioL 0.25 MCG CAPSULE PO (08:14)
[2023-12-09 08:29] VITALS: O2SAT 98
[2023-12-09 09:06] LABS: Alanine Aminotransferase 8 U/L (6-50); Albumin Level 3.6 g/dL (3.5-5.1); Alkaline Phosphatase 62 U/L (38-126); Anion Gap 11 mmol/L (4-12); Aspartate Amino Transferase 20 U/L (17-59); Bilirubin,Total 0.5 mg/dL (0.2-1.3); Blood Urea Nitrogen 23 mg/dL (9-20); Calcium 9.3 mg/dL (8.4-10.2); Carbon Dioxide 25 mmol/L (22-30); Chloride 97 mmol/L (98-107); Estimated CRCL calculation 54 ml/min; Estimated Glomerular Filt Rate 40; Glucose 107 mg/dL (65-110); Sodium 133 mmol/L (137-145)
[2023-12-09] MEDS: ONDANSETRON INJ 4 MG/2 ML VIAL IV PUSH (09:49)
[2023-12-09] MEDS: HYDROmorphone HCL INJ (*CRX) 1 MG/ML SYR 0.5 MG IV PUSH (09:49)
[2023-12-09 14:00] VITALS: BP 126/48; PULSE 98; RESP 18; TEMP 36.7; O2SAT 100
--- NOTE | 2023-12-09 14:42 | PM.DS ---
DS: Admitting Diagnosis Discharge Date 12/09/2023 Admitting Diagnosis Right leg cellulitis DS: Discharge Diagnosis Discharge Diagnosis (1) Cellulitis of right foot: Code(s): L03.115 - Cellulitis of right lower limb Status: Acute (2) Dyspnea: Qualifiers: Dyspnea type: shortness of breath Qualified Code(s): R06.02 - Shortness of breath Code(s): R06.00 - Dyspnea, unspecified Status: Acute (3) Foot pain, right: Code(s): M79.671 - Pain in right foot Status: Acute (4) CKD (chronic kidney disease) stage 3, GFR 30-59 ml/min: Qualifiers: Chronic kidney disease stage 3 subtype: stage 3b (GFR 30-44) Qualified Code(s): N18.32 - Chronic kidney disease, stage 3b Code(s): N18.3 - Chronic kidney disease, stage 3 (moderate) Status: Acute (5) Wound of right foot: Code(s): S91.301A - Unspecified open wound, right foot, initial encounter Status: Acute (6) Mobility impaired: Code(s): Z74.09 - Other reduced mobility Status: Acute (7) Chronic hyponatremia: Code(s): E87.1 - Hypo-osmolality and hyponatremia Status: Acute (8) Mild protein malnutrition: Code(s): E44.1 - Mild protein-calorie malnutrition Status: Acute DS: Summary Hospital Course Hospital Course: Patient is a 73yo male with HTN, CHF, AFib, AMELIA, CKD and lymphedema here for right foot pain. He was discharged from here on 11/14 after being hospitalized for 7 days for sepsis from RLE cellulitis. He was discharged to SNF on Levaquin for 4 more days. he was doing well with therapy until a few days prior to admission when he noted pain and swelling to the RLE. Symptoms worsened prompting this admission. No fever or chills. X-ray at the outside facility mention possible fracture. Repeat x-ray with soft tissue swelling. Patient started on vancomycin and cefepime. General surgery consulted. Leukocytosis improving. Blood culture no growth to date. Will get wound culture. Recent wound culture grew MSSA and Pseudomonas. QTC prolonged. Will not be a candidate for fluoroquinolones. Continued on cefepime. Vancomycin was discontinued. No prior MRSA noted. Repeat the wound culture with vancomycin resistant Enterococcus. Patient will be switched to linezolid for 10 days course along with wound care. He will be sent to a nursing home facility for continued care Chest x-ray with pulmonary vascular congestion. Not in overt heart failure. CKD stage 3/4 creatinine at 1.7-1.9 continue to monitor Right lower leg venous duplex negative for DVT. Arterial duplex with moderate peripheral vascular disease noted. Will need to see vascular surgery as an outpatient basis. Wound Care to follow General surgery consulted. Impaired mobility Chronic hyponatremia DVT prophylaxis on apixaban Code status full code Chronic diastolic congestive heart failure. Echo 04/2022 with EF 65-70% diastolic dysfunction grade 1 Disposition: Going to [facility] for further rehabilitation Time Spent with Patient Time attestation: Total time spent providing and/or coordinating discharge services: 40 minutes Exam Narrative: APPEARANCE: No apparent distress. Alert and oriented x3 Head: atraumatic. Normocephalic EYES: EOMI, PERRLA NOSE: Atraumatic RESPIRATORY: No increased rate of breathing CTAB CARDIOVASCULAR: RRR, EXTREMITY: Significant lymphedema of both lower extremities, with stasis dermatitis. Dressing In place which is clean dry and intact ABDOMINAL: Non-distended soft nontender MUSCULOSKELETAl: No obvious deformities NEURO: Alert. Lower extremity weakness PSYCHIATRIC: Normal affect DS: Data Data Completed and Pending Labs on day of discharge: Labs from last 24 hours 12/09/23 07:03 WBC 7.2 RBC 3.69 L Hgb 10.6 L Hct 33.8 L MCV 91.6 MCH 28.7 MCHC 31.4 L RDW 15.7 H Plt Count 231 MPV 10.7 H Immature Gran % (Auto) 0.7 H Neut % (Auto)
[2023-12-09] MEDS: LINEZOLID 600 MG TABLET PO (14:58)
[2023-12-09 15:36] LABS: SARS-CoV-2 RNA PCR Negative (Negative)
--- NOTE | 2023-12-09 18:19 | PC.NURSE ---
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 Patient wristband placed on scooter.
--- NOTE | 2023-12-10 11:34 | PC.NURSE ---
Documentation under the name of Antoinette Ruffin on 12/09/23 from [id number] was done by Amara Vogel. Signing out and logging in was not done correctly at shift change.
== END 2023-12-09 18:15 | DRG 603 ==
LOC: ANHED 12-03 02:19 → ANH3MEDSUR 12-03 02:56
PROVIDERS: Nurse Practitioner Family; Admitting Provider Internal Medicine; Emergency Provider Emergency Medicine; PCP Family Medicine; Visit Provider Internal Medicine
DX: L03.115 Cellulitis of right lower limb (principal); N17.9 Acute kidney failure, unspecified; I13.0 Hypertensive heart and chronic kidney disease with heart failure and stage 1 through stage 4 chronic kidney disease, or unspecified chronic kidney disease; I50.32 Chronic diastolic (congestive) heart failure; I48.20 Chronic atrial fibrillation, unspecified; E87.1 Hypo-osmolality and hyponatremia; E44.1 Mild protein-calorie malnutrition; Z68.42 Body mass index [BMI] 45.0-49.9, adult; N18.32 Chronic kidney disease, stage 3b; I73.9 Peripheral vascular disease, unspecified; I89.0 Lymphedema, not elsewhere classified; I87.2 Venous insufficiency (chronic) (peripheral); L97.519 Non-pressure chronic ulcer of other part of right foot with unspecified severity; E87.6 Hypokalemia; E03.9 Hypothyroidism, unspecified; E78.5 Hyperlipidemia, unspecified; E66.01 Morbid (severe) obesity due to excess calories; K21.9 Gastro-esophageal reflux disease without esophagitis; L71.8 Other rosacea; M54.50 Low back pain, unspecified; G89.29 Other chronic pain; G62.9 Polyneuropathy, unspecified; G47.33 Obstructive sleep apnea (adult) (pediatric); Z11.52 Encounter for screening for COVID-19; Z87.891 Personal history of nicotine dependence; Z79.01 Long term (current) use of anticoagulants
CPT/HCPCS: 36415; 71045; 73630; 80053; 80069; 80202; 82565; 83605; 83735; 85025; 85652; 86140; 87040; 87070; 87077; 87181; 87205; 87635; 93005; 93925; 93971; 94002; 96374; 96375; 97110; 97116; 97161; 97166; 97530; 99285; A9270; J0692; J1170; J2405; J3370; J7120

== ENCOUNTER 2024-01-15 13:39 | Inpatient (IN) | payer MEDICARE, OTHER, SELFPAY ==
--- NOTE | ~2024-01-15 | XR_ITS ---
EXAMINATION: XR foot RT 2V DATE: 01/15/2024 14:47 INDICATION: Open ulcer to the anterior surface of the right foot TECHNIQUE: Dorsoplantar and lateral views of the right foot were obtained. COMPARISON: None. FINDINGS: Alignment is normal. No fracture. Mild polyarticular osteoarthritis at multiple tarsal metatarsal, me tatarsophalangeal and interphalangeal joints. No cortical erosions or periosteal reaction to suggest osteomyelitis. Moderate-sized Achilles and plantar calcaneal spurs. Prominent soft tissue swelling ov er the dorsum of the foot. No evident soft tissue gas or radiopaque foreign bodies. Scattered vascula r calcifications along the anterior tibial artery and artery projecting between the base of the first and second metatarsals. IMPRESSION: 1. 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 No evident osteoarthritis or acut e osseous abnormality. Reviewed, dictated and finalized at location A. IMPRESSION: 1. 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 No evident osteoarthritis or acute osseous abnormality.
[2024-01-15 13:39] VITALS: BP 114/63; PULSE 91; RESP 19; TEMP 36.8; O2SAT 98
--- NOTE | 2024-01-15 13:41 | ED.GENADULT ---
HPI - General Adult General Chief complaint: Skin/Abscess/Foreign Body Stated complaint: foot infection Time Seen by Provider: 01/15/24 13:40 Source: patient and EMS Mode of arrival: EMS History of Present Illness HPI narrative: 73 years old white male came from home by ambulance because of questionable infected right foot. Patient is telling me that he been having redness, swelling, weeping and smelly discharge out of the right foot for 8 months, with intermittent flare up, come to the emergency room, admit to the hospital and gets better antibiotic IV then go back home and this cycle repeated again and again. Patient report that he started having pain at the right foot 3 days ago. Otherwise everything exactly the same as before. Home health nurse called his family physician who requested to come to the emergency room Patient denies any fever, chills, nausea, vomiting, history of diabetes. Patient is telling me that his right lower extremity start weeping 8 months ago, and has been having trouble at the right foot since. Related Data Home Medications Medication Instructions Recorded Confirmed loratadine 10 mg tablet (Claritin) 10 mg PO DAILY 07/12/20 12/03/23 polyethylene glycol 3350 17 17 g PO DAILY PRN Constipation 06/02/21 12/03/23 gram/dose oral powder (Miralax) acetazolamide 250 mg tablet 250 mg PO DAILY 11/19/22 12/03/23 fluticasone propionate 50 1 spray intranasal DAILY PRN 11/19/22 12/03/23 mcg/actuation nasal Congestion spray,suspension (Flonase Allergy Relief) minoxidil 10 mg tablet 10 mg PO DAILY 11/19/22 12/03/23 levothyroxine 200 mcg tablet 200 mcg PO DAILY 08/30/23 12/03/23 gabapentin 300 mg capsule 300 mg PO TID 11/09/23 12/03/23 Allergies Allergy/AdvReac Type Severity Reaction Status Date / Time oxycodone [From OxyContin] Allergy Mild Nausea Verified 01/15/24 13:45 Sulfa (Sulfonamide Allergy Mild Rash Verified 01/15/24 13:45 Antibiotics) Penicillins Allergy Unknown SWELLING Verified 01/15/24 13:45 codeine AdvReac Mild N/V Verified 01/15/24 13:45 hydrocodone AdvReac Mild N/V Verified 01/15/24 13:45 tramadol AdvReac Mild Nausea Verified 01/15/24 13:45 Review of Systems Review of Systems: All systems reviewed & are unremarkable except as noted in HPI and below [facility] Past Medical History Medical History Atrial fibrillation Chronic acquired lymphedema Chronic anemia Chronic congestive heart failure Echocardiogram in May 2021 was technically difficult and showed normal LV systolic function with an EF of 60 to 65%, severely enlarged RV chamber with moderate to severely reduced RV systolic function, severe biatrial enlargement, and moderate pulmonary hypertension. Chronic kidney disease Chronic low back pain Chronic venous insufficiency Dyslipidemia Environmental allergies Essential (primary) hypertension GERD without esophagitis Gout Hypothyroidism Lymphedema of both lower extremities Morbid obesity with body mass index (BMI) of 40.0 or higher Neuropathic pain Obstructive sleep apnea Ocular rosacea Peripheral polyneuropathy Rosacea Sepsis Surgical History Surgical History H/O eye surgery (~2005) [id number] [facility] History of carpal tunnel release History of cholecystectomy (2008) History of discectomy (2012) History of foot surgery Left Foot History of rotator cuff surgery Bilateral. History of thoracic surgery Pericardial effusion s/p pericardial window thought secondary to minoxidil, in 2010 at [facility]. Family History Family History Father Cardiovascular disease Grandparent Cancer Mother COPD (chronic obstructive pulmonary disease) Social History Social History Social History: Surrogate medical decision maker: Shyla Hurst, daughter. Code status: Full code. Smoking packs per day: 2 Smoking cigarettes per day: 40.0 Years smoked: 20 Smoking pack-years: 40.00 Smoking status: Former smoker Tobacco type: cigarettes Second hand tobacco smoke exposure: No Additional smoking assessment comments: 1978 Alcohol intake: never Drinks per week: 14 Alcohol use details: One beer daily. Substance use: never Substance use type: does not use Do You Feel Safe in your Home?: Yes Lack of Transportation: No Lack of Food: Never True Current Housing: I Have Housing Concerned About Future Housing: No Difficulty Paying Gas/Electric Bills: No Difficulty Paying for Meds: No Currently Unemployed: No Education: High School Diploma/GED Difficulty w/ Childcare or Family Care: No Living arrangements: alone Additional living arrangements comments: Lives in own home in [place]. Uses a motorized scooter and transfers with slide board. Occupation/Education: retired Additional occupation/education comments: Retired. 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 Spiritual care concerns: No Exam Narrative: General appearance: Well-developed, well-nourished Skin: Normal color, right foot examination showed diffuse redness dorsally, NO EPITHELIUM DORSALLY, no warmth, no tenderness, clear discharge. H Chest and respiratory: Airway patent, no respiratory distress, no accessory muscle use Heart: Regular rate/rhythm Vascular: Normal peripheral pulses, normal capillary refill. Musculoskeletal: Normal range of motion, nontender back Neurologic: Alert and oriented ?3, [employer] is normal as tested, no gross motor deficit Course Vital Signs Vital signs: Vital Signs Temperature 36.8 C 01/15/24 13:39 Pulse Rate 91 01/15/24 13:39 Respiratory Rate 19 01/15/24 13:39 Blood Pressure 114/63 01/15/24 13:39 Pulse Oximetry 98 01/15/24 13:39 Oxygen Delivery Room Air 01/15/24 13:39 Temperature 36.8 C 01/15/24 13:39 Pulse Rate 91 01/15/24 13:39 Respiratory Rate 19 01/15/24 13:39 Blood Pressure 114/63 01/15/24 13:39 Pulse Oximetry 98 01/15/24 13:39 Oxygen Delivery Room Air 01/15/24 13:39 Medical Decision Making [facility] Narrative Medical decision making narrative: PATIENT CAME WITH POSSIBLE WORSENING OF THE RIGHT FOOT CHRONIC WOUND. VITAL SIGNS ARE STABLE PHYSICAL EXAMINATION SHOWED SUPERFICIAL EPITHELIAL LAYER ERYTHEMA, NO WARMTH, CLEAR DISCHARGE, DIFFERENTIAL DIAGNOSIS INCLUDE NONCOMPLIANCE WITH MEDICATION, CHRONIC EDEMA WHICH WILL BE THE UNDERLYING CAUSE OF NON HEALING PROCESS OF THE WOUND, LESS LIKELY INFECTION. IV VANCOMYCIN STARTED BLOOD WORKUP SHOWED WBC OF 8.5 CREATININE OF 2.2 COMPARED TO 1.7 2023. BUN OF 45 C-REACTIVE PROTEIN 2.3 X-RAY OF THE RIGHT FOOT SHOWED NO ACUTE OSSEOUS ABNORMALITY ADMIT TO HOSPITALIST DIAGNOSIS CHRONIC RIGHT FOOT WOUND AND JENA Differential Diagnosis Differential Diagnosis: ABOVE Vital Signs Vital Signs: Vital Signs Temperature 36.8 C 01/15/24 13:39 Pulse Rate 91 01/15/24 13:39 Respiratory Rate 19 01/15/24 13:39 Blood Pressure 114/63 01/15/24 13:39 Pulse Oximetry 98 01/15/24 13:39 Oxygen Delivery Room Air 01/15/24 13:39 Temperature 36.8 C 01/15/24 13:39 Pulse Rate 91 01/15/24 13:39 Respiratory Rate 19 01/15/24 13:39 Blood Pressure 114/63 01/15/24 13:39 Pulse Oximetry 98 01/15/24 13:39 Oxygen Delivery Room Air 01/15/24 13:39 Lab Data 01/15/24 14:31 01/15/24 14:31 Labs: Lab Results 01/15/24 Range/Units 14:31 WBC 8.5 (4.5-10.0) K/mm3 RBC 3.81 L (4.6-6.20) M/mm3 Hgb 11.2 L (14.0-18.0) g/dL Hct 36.3 L (42.0-52.0) % MCV 95.3 (80-100) fl MCH 29.4 (26-34) pg MCHC 30.9 L (32-36) g/dl RDW 15.8 H (11.5-14.5) % Plt Count 336 (150-375) k/mm3 MPV 9.9 (7.4-10.4) fl Immature Gran % (Auto) 1.1 H (0-0.5) % Neut % (Auto) 77.4 H (45.5-73.1) % Lymph % (Auto) 6.8 L (18.3-44.2) % Delta % (Auto) 8.0 (2.6-8.5) % Eos % (Auto) 5.5 H (0-4.4) % Baso % (Auto) 1.2 (0.2-1.2) % Lymph # (Auto) 0.58 L (0.9-3.2) K/mm3 Delta # (Auto) 0.7 H (0.1-0.6) K/mm3 Eos # (Auto) 0.5 H (0-0.3) K/mm3 Baso # (Auto) 0.1 (0.0-0.1) K/mm3 Abs Immat Gran (auto) 0.09 H (0.00-0.031) K/mm3 Absolute Neuts (auto) 6.6 (1.3-6.7) K/mm3 Absolute Nucleated RBC 0.000 (0.0-0.012) K/mm3 Nucleated RBC % 0.0 (0.0-0.2) % PT 15.8 H (11.1-14.7) Seconds INR 1.2 APTT 29.5 (22.3-36.8) Seconds Sodium 135 L (137-145) mmol/L Potassium 3.9 (3.4-5.0) mmol/L Chloride 91 L (98-107) mmol/L Carbon Dioxide 34 H (22-30) mmol/L Anion Gap 10 (4-12) mmol/L BUN 45 H D (9-20) mg/dL Creatinine 2.20 H (0.7-1.3) mg/dL Estim Creat Clear Calc 42 ml/min Estimated GFR 29 L (59 - ) Glucose 111 H (65-110) mg/dL Lactic Acid 1.4 (0.7-2.0) mmol/L Calcium 9.3 (8.4-10.2) mg/dL Total Bilirubin 0.5 (0.2-1.3) mg/dL AST 18 (17-59) U/L ALT 8 (6-50) U/L Alkaline Phosphatase 46 (38-126) U/L C-Reactive Protein 2.3 H (<1.0) mg/dL Total Protein 8.0 (6.3-8.2) g/dL Albumin 4.5 (3.5-5.1) g/dL Imaging Data Radiologist's impression: Impressions Foot X-Ray 01/15/24 14:50 IMPRESSION: 1. 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 No evident osteoarthritis or acute osseous abnormality. Critical Care Time Critical Care Time Critical Care Time: Yes Total Critical Care Time: 30 Discharge Plan Discharge Clinical Impression: Chronic wound of extremity, JENA (acute kidney injury) Patient Disposition: Still a Patient Condition: Stable Additional Instructions: ADMIT TO HOSPITALIST Prescriptions: No Action loratadine [Claritin] 10 mg tablet 10 mg PO DAILY fluticasone propionate [Flonase Allergy Relief] 50 mcg/actuation spray,suspension 1 spray intranasal DAILY PRN (Reason: Congestion) Rx Instructions: administer into each nostril Eliquis 5 mg tablet 5 mg PO Q12HR Qty: 180 1RF Patient Comments: metoprolol tartrate 50 mg tablet 50 mg PO Q12HR Qty: 180 1RF metolazone 2.5 mg tablet 5 mg PO 4XW Qty: 30 6RF Rx Instructions: Take on Saturday, Wednesdays, Fridays, and Saturdays acetazolamide 250 mg tablet 250 mg PO DAILY minoxidil 10 mg tablet 10 mg PO DAILY calcitriol 0.25 mcg capsule 0.25 mcg PO 3XW Qty: 36 3RF Rx Instructions: take on Saturday, Saturday, Fridays Minerin Creme Cream 1 applic topical BID Qty: 113 0RF Rx Instructions: Apply to jackie lower legs polyethylene glycol 3350 [Miralax] 17 gram/dose Powder 17 g PO DAILY PRN (Reason: Constipation) gabapentin 300 mg capsule 300 mg PO TID acetaminophen 325 mg Tablet 650 mg PO Q4H PRN (Reason: Mild Pain (1-3) Or Fever) Qty: 1 0RF sennosides-docusate sodium [Senokot-S] 8.6-50 mg Tablet 1 tab-cap PO HS PRN (Reason: CONSTIPATION) Qty: 1 0RF linezolid 600 mg tablet 600 mg PO Q12H 10 Days Qty: 19 0RF allopurinol 100 mg tablet 100 mg PO DAILY@0800 Qty: 30 0RF Rx Instructions: NEEDS APPOINTMENT FOR FURTHER REFILLS docusate sodium 100 mg Capsule 100 mg PO Q12H Qty: 30 0RF levothyroxine 200 mcg tablet 200 mcg PO DAILY famotidine 20 mg Tablet 20 mg PO DAILY Qty: 14 0RF spironolactone 25 mg tablet 25 mg PO DAILY Qty: 30 0RF tamsulosin 0.4 mg capsule 0.4 mg PO QAM Qty: 90 3RF Follow-up/Referrals: Lilliana Tomas CRICKET COACH [Advanced Practice Nurse] -
[2024-01-15] MEDS: SODIUM CHLORIDE 0.9% IV 1,000 ML 999 ML IV CONT (14:30)
[2024-01-15 14:40] LABS: Basophils Absolute Auto 0.1 K/mm3 (0.0-0.1); Basophils Percent Auto 1.2 % (0.2-1.2); Eosinophils Absolute Auto 0.5 K/mm3 (0-0.3); Eosinophils Percent Auto 5.5 % (0-4.4); Hematocrit 36.3 % (42.0-52.0); Hemoglobin 11.2 g/dL (14.0-18.0); Immature Granulocyte Absolute 0.09 K/mm3 (0.00-0.031); Immature Granulocyte Percent A 1.1 % (0-0.5); Lymphocytes Absolute Auto 0.58 K/mm3 (0.9-3.2); Lymphocytes Percent Auto 6.8 % (18.3-44.2); Mean Corpuscular HGB Conc 30.9 g/dl (32-36); Mean Corpuscular Hemoglobin 29.4 pg (26-34); Mean Corpuscular Volume 95.3 fl (80-100); Mean Platelet Volume 9.9 fl (7.4-10.4); Monocytes Absolute Auto 0.7 K/mm3 (0.1-0.6); Neutrophils Absolute Auto 6.6 K/mm3 (1.3-6.7); Neutrophils Percent Auto 77.4 % (45.5-73.1); Platelet Count Result 336 k/mm3 (150-375); Red Blood Count 3.81 M/mm3 (4.6-6.20); Red Cell Distribution Width 15.8 % (11.5-14.5); White Blood Count 8.5 K/mm3 (4.5-10.0)
[2024-01-15 14:50] LABS: Potassium 3.9 mmol/L (3.4-5.0)
[2024-01-15 14:51] LABS: Lactic Acid Reflex 1.4 mmol/L (0.7-2.0)
[2024-01-15 14:52] LABS: INR 1.2; Prothrombin Time 15.8 Seconds (11.1-14.7)
[2024-01-15 14:53] LABS: Partial Thromboplastin Time 29.5 Seconds (22.3-36.8)
[2024-01-15 14:56] LABS: Alanine Aminotransferase 8 U/L (6-50); Albumin Level 4.5 g/dL (3.5-5.1); Alkaline Phosphatase 46 U/L (38-126); Anion Gap 10 mmol/L (4-12); Aspartate Amino Transferase 18 U/L (17-59); Bilirubin,Total 0.5 mg/dL (0.2-1.3); Blood Urea Nitrogen 45 mg/dL (9-20); CRP 2.3 mg/dL (<1.0); Calcium 9.3 mg/dL (8.4-10.2); Carbon Dioxide 34 mmol/L (22-30); Chloride 91 mmol/L (98-107); Estimated CRCL calculation 42 ml/min; Estimated Glomerular Filt Rate 29; Glucose 111 mg/dL (65-110); Sodium 135 mmol/L (137-145)
[2024-01-15] MEDS: ONDANSETRON INJ 4 MG/2 ML VIAL IV PUSH (16:24)
[2024-01-15] MEDS: MORPHINE SULFATE (*CRX) 4 MG/ML INJ IV PUSH (16:24)
[2024-01-15] MEDS: VANCOMYCIN 1,500 MG/NS 500 ML 1,500 MG/500 ML BAG 250 MG IVPB (16:24)
[2024-01-15 16:34] VITALS: BP 120/66; PULSE 94; RESP 19; TEMP 36.7; O2SAT 96
--- NOTE | 2024-01-15 16:50 | PC.NURSE ---
patient being admitted with medication infusing per order.
[2024-01-15 17:44] VITALS: BMI 46.3
--- NOTE | 2024-01-15 17:46 | PC.NURSE ---
This patient, Irwin Cyr Jr., was admitted to Medical Room 344-01. Patient/family oriented to hospital policies and general routines including ID bracelet, bed and alarms, visiting hours, pain management, procedures, bathroom and other care routines, personal items, smoking policy, room service/diet, and visiting hours. Information on how to activate the Rapid Response Team has been discussed. Patient/Family are encouraged to report perceived risks to care and to ask questions if they do not understand what they are told or what they should do.
--- NOTE | 2024-01-15 19:01 | P.HP_ITS ---
H&P: HPI History of Present Illness Date/Time: 01/15/24 21:00 Chief Complaint: Foot wound. Narrative: This is a pleasant 73-year-old male with hypertension, dyslipidemia, heart failure with preserved ejection fraction, atrial fibrillation on chronic anticoagulation, hypothyroidism, sleep apnea, GERD, chronic kidney disease, and chronic lymphedema of the lower extremities who presented to the emergency department via EMS for evaluation of a worsening right foot wound. The patient provides the following history. He has had this wound for extended periods of time and has been followed by the wound clinic. He was last hospitalized a couple of months ago with an infection of that fluids and he was discharged to rehab where the wound improved significantly. He is now back at home and despite having home health come in to help care for the wound, it has gotten particularly bad and it is to the point where he has once again having pretty severe pain in the dorsum of the right foot and it has been oozing fluid. He mentions having sweats the last couple of nights but he has not had a fever or chills. Appetite has been stable and he denies nausea, vomiting, and diarrhea. He has not noticed extension of the chronic redness of the foot to other parts of the leg. Of note, bilateral lower extremity arterial Dopplers taken during his last hospitalization showed evidence of moderate vascular disease however he has not yet had appointment with a vascular surgeon. Wound nurse came to evaluate the patient in the ED reports that it looks much worse though she is not convinced he has an acute underlying bacterial infection. Recommendations were given and the patient is being admitted overnight for close monitoring on further consideration. Review of Systems Review of Systems: 12 systems were reviewed and are negativ e except for as per HPI. [facility] Past Medical History Medical History (Updated 01/15/24 @ 22:58 by Carie Pereyra PA-C) Atrial fibrillation Chronic acquired lymphedema Chronic anemia Chronic congestive heart failure Echocardiogram in May 2021 was technically difficult and showed normal LV systolic function with an EF of 60 to 65%, severely enlarged RV chamber with moderate to severely reduced RV systolic function, severe biatrial enlargement, and moderate pulmonary hypertension. Chronic kidney disease Chronic low back pain Chronic venous insufficiency Dyslipidemia Environmental allergies Essential (primary) hypertension GERD without esophagitis Gout Hypothyroidism Lymphedema of both lower extremities Morbid obesity with body mass index (BMI) of 40.0 or higher Neuropathic pain Obstructive sleep apnea Ocular rosacea Peripheral polyneuropathy Peripheral vascular disease Rosacea Sepsis Surgical History Surgical History H/O eye surgery (~2005) [id number] [facility] History of carpal tunnel release History of cholecystectomy (2008) History of discectomy (2012) History of foot surgery Left Foot History of rotator cuff surgery Bilateral. History of thoracic surgery Pericardial effusion s/p pericardial window thought secondary to minoxidil, in 2010 at [facility]. Family History Family History Father Cardiovascular disease Grandparent Cancer Mother COPD (chronic obstructive pulmonary disease) Social History Social History Social History: Surrogate medical decision maker: Shyla Hurst, daughter. Code status: Full code. Smoking packs per day: 2 Smoking cigarettes per day: 40.0 Years smoked: 20 Smoking pack-years: 40.00 Smoking status: Former smoker Tobacco type: cigarettes Second hand tobacco smoke exposure: No Additional smoking assessment comments: 1979 Alcohol intake: never Alcohol use details: One beer daily. Substance use: never Substance use type: does not use Do You Feel Safe in your Home?: Yes Lack of Transportation: No Lack of Food: Never True Current Housing: I Have Housing Concerned About Future Housing: No Difficulty Paying Gas/Electric Bills: No Difficulty Paying for Meds: No Currently Unemployed: No Education: High School Diploma/GED Difficulty w/ Childcare or Family Care: No Living arrangements: alone Additional living arrangements comments: Lives in own home in [place]. Uses a motorized scooter and transfers with slide board. Occupation/Education: retired Additional occupation/education comments: Retired. 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 Spiritual care concerns: No Meds Home Medications and Allergies Home Medications Medication Instructions Recorded Confirmed Type loratadine 10 mg tablet (Claritin) 10 mg PO DAILY 07/12/20 01/15/24 History polyethylene glycol 3350 17 17 g PO DAILY PRN Constipation 06/02/21 01/15/24 History gram/dose oral powder (Miralax) apixaban 5 mg tablet (Eliquis) 5 mg PO Q12HR #180 tabs 10/21/22 10/16/24 Rx metoprolol tartrate 50 mg tablet 50 mg PO Q12HR #180 tabs 01/19/22 01/15/24 Rx acetazolamide 250 mg tablet 250 mg PO DAILY 11/19/22 01/15/24 History fluticasone propionate 50 1 spray intranasal DAILY PRN 11/19/22 01/15/24 History mcg/actuation nasal Congestion spray,suspension (Flonase Allergy Relief) minoxidil 10 mg tablet 10 mg PO DAILY 11/19/22 01/15/24 History lanolin alcohols-mineral 1 applic topical BID #113 grams 03/25/23 01/15/24 Rx oil-w.petrolatum-ceresin topical cream (Minerin Creme topical) spironolactone 25 mg tablet 25 mg PO DAILY #30 tabs 04/06/23 01/15/24 Rx tamsulosin 0.4 mg capsule 0.4 mg PO QAM #90 caps 04/06/23 01/15/24 Rx docusate sodium 100 mg capsule 100 mg PO Q12H #30 caps 04/26/23 01/15/24 Rx metolazone 2.5 mg tablet 5 mg PO 4XW #30 tabs 06/26/23 01/15/24 Rx levothyroxine 200 mcg tablet 200 mcg PO DAILY 08/30/23 01/15/24 History calcitriol 0.25 mcg capsule 0.25 mcg PO 3XW #36 caps 10/30/23 01/15/24 Rx gabapentin 300 mg capsule 300 mg PO TID 11/09/23 01/15/24 History sennosides 8.6 mg-docusate sodium 1 tab-cap PO HS PRN CONSTIPATION 11/15/23 01/15/24 Rx 50 mg tablet (Senokot-S) #1 tablet allopurinol 100 mg tablet 100 mg PO DAILY@0800 #30 tabs 12/16/23 01/15/24 Rx acetaminophen 325 mg tablet 500 mg PO Q4H PRN Mild Pain (1-3) 01/15/24 01/15/24 History Or Fever bumetanide 1 mg tablet 1 mg PO TID 01/15/24 01/15/24 History Allergies Allergy/AdvReac Type Severity Reaction Status Date / Time oxycodone [From OxyContin] Allergy Mild Nausea Verified 01/15/24 13:45 Sulfa (Sulfonamide Allergy Mild Rash Verified 01/15/24 13:45 Antibiotics) Penicillins Allergy Unknown SWELLING Verified 01/15/24 13:45 codeine AdvReac Mild N/V Verified 01/15/24 13:45 hydrocodone AdvReac Mild N/V Verified 01/15/24 13:45 tramadol AdvReac Mild Nausea Verified 01/15/24 13:45 Vital Signs Vital Signs - 24 hr 01/15/24 13:39 01/15/24 16:34 Temperature 98.3 F 98.1 F Pulse Rate 91 94 Respiratory Rate 19 19 Blood Pressure 114/63 120/66 Pulse Oximetry 98 96 Oxygen Delivery Room Air Exam Narrative: General:?Nontoxic-appearing male sitting up in bed. Weight: 159.1 kg. BMI: 46.3. HEENT:??PERRL, EOMI. Sclera anicteric.? Oral mucosa moist. Neck:??Supple. Exam limited due to neck circumference. Respiratory:?Respirations are nonlabored.? Lung sounds are clear to auscultation. Cardiovascular:??Regular rate and rhythm with S1-S2. Gastrointestinal:??Abdomen is obese, nontender, and nondistended with positive bowel sounds. Skin:??Warm and dry. Chronic hyperpigmentation and thickened skin of the lower legs bilaterally. There shallow breakdown throughout the dorsum of the right foot with scattered yellow slough and serous drainage. The surrounding tissue is erythematous following cleaning by the wound nurse but this area is not warm There is some peeling and blistering of the skin, presumably due to swelling. Extremities:??No cyanosis or clubbing. Chronic lymphedema of the lower extremity. Neurological:??Alert.? Cranial nerves 2-12 are grossly intact. Generalized weak ness without focal findings. Psychiatric:??Pleasant and cooperative with normal mood and affect.? Judgment and insight intact. He is in good spirits. H&P: Results Labs Labs: Short CBC 01/15/24 Range/Units 14:31 WBC 8.5 (4.5-10.0) K/mm3 Hgb 11.2 L (14.0-18.0) g/dL Hct 36.3 L (42.0-52.0) % Plt Count 336 (150-375) k/mm3 BMP 01/15/24 14:31 Sodium 135 L Potassium 3.9 Chloride 91 L Carbon Dioxide 34 H BUN 45 H D Creatinine 2.20 H Glucose 111 H Calcium 9.3 Liver Function 01/15/24 Range/Units 14:31 Total Bilirubin 0.5 (0.2-1.3) mg/dL AST 18 (17-59) U/L ALT 8 (6-50) U/L Alkaline Phosphatase 46 (38-126) U/L Albumin 4.5 (3.5-5.1) g/dL Impressions Foot X-Ray 01/15/24 14:50 IMPRESSION: 1. 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 No evident osteoarthritis or acute osseous abnormality. 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 Labs, imaging, EKG, and all reports were personally reviewed. He was evaluated by the wound nurse who gave recommendations. He was given a dose of vancomycin in the ED however I am not convinced that he has an acute underlying bacterial infection (previous cultures have grown out Staph aureus, Pseudomonas aeruginosa, and vancomycin resistant Enterococcus faecium) and he is afebrile with a normal white blood cell count. Continue to monitor for improvement. He needs to keep his legs elevated as much as possible. He would benefit from seeing a vascular surgeon as an outpatient. Kidney function has been variable given his need for diuretics and will be monitored. I will not make any changes to those medications at this point. Vital signs were reviewed and they are stable. CPAP will be provided for the patient to use while hospitalized. His home medications will be reviewed and resumed as appropriate. Findings and treatment plan were discussed with the patient. Questions were solicited and answered to satisfaction. The patient's medical management will be taken over by the hospitalist team in a.m. Quality VTE Prophylaxis VTE prophylaxis: pharmacologic ordered (on apixaban) The patient has been admitted under observation status. Hospitalist MIPS Advance Care Plan I have confirmed that the patient's Advanced Care Plan is present, code status is documented, or surrogate decision maker is listed in patient medical record.: Yes Medication Reconciliation I have utilized all available resources to obtain, update and review the pa eileens current medications (includes all prescriptions, OTC, herbals, cannabis, and nutritional supplements).: Yes
[2024-01-15 19:35] VITALS: BP 147/71; PULSE 94; RESP 16; TEMP 37; O2SAT 97
[2024-01-15] MEDS: GABAPENTIN 300 MG CAPSULE PO (20:07)
[2024-01-15] MEDS: METOPROLOL TARTRATE 50 MG TAB PO (20:07)
[2024-01-15] MEDS: HYDROmorphone HCL INJ (*CRX) 1 MG/ML SYR 0.5 MG IV PUSH ×2 (20:07→23:02)
[2024-01-15] MEDS: DOCUSATE SODIUM 100 MG CAPSULE PO (20:07)
[2024-01-15] MEDS: APIXABAN 5 MG TABLET PO (20:07)
[2024-01-15] MEDS: EUCERIN CREAM 120 GM JAR 1 APPLIC TOPICAL (20:08)
[2024-01-16] VITALS (7 sets, daily range): BP systolic 121–126; BP diastolic 60–63; PULSE 90–112; RESP 18–20; TEMP 36–37; O2SAT 92–98
[2024-01-16] MEDS: GABAPENTIN 300 MG CAPSULE PO ×3 (05:10→20:53)
[2024-01-16] MEDS: LEVOTHYROXINE SODIUM 100 MCG TABLET 200 MCG PO (05:10)
[2024-01-16 06:07] LABS: Hematocrit 33.4 % (42.0-52.0); Mean Corpuscular HGB Conc 29.9 g/dl (32-36); Mean Corpuscular Hemoglobin 28.7 pg (26-34); Mean Platelet Volume 10.2 fl (7.4-10.4); Platelet Count Result 299 k/mm3 (150-375); Red Blood Count 3.48 M/mm3 (4.6-6.20); Red Cell Distribution Width 15.7 % (11.5-14.5); White Blood Count 9.8 K/mm3 (4.5-10.0)
[2024-01-16 06:08] LABS: Anion Gap 7 mmol/L (4-12); Blood Urea Nitrogen 42 mg/dL (9-20); CRP 3.2 mg/dL (<1.0); Calcium 8.8 mg/dL (8.4-10.2); Carbon Dioxide 32 mmol/L (22-30); Chloride 96 mmol/L (98-107); Estimated CRCL calculation 42 ml/min; Estimated Glomerular Filt Rate 29; Glucose 127 mg/dL (65-110); Magnesium 2.1 mg/dL (1.6-2.3); Potassium 4.1 mmol/L (3.4-5.0); Sodium 135 mmol/L (137-145)
[2024-01-16 06:45] LABS: Procalcitonin 0.2 ng/mL
--- NOTE | 2024-01-16 08:58 | P.PNIM_ITS ---
Progress Note: A&P Assessment and Plan (1) Wound of right foot: Code(s): S91.301A - Unspecified open wound, right foot, initial encounter Status: Acute Assessment and Plan: Chronic, worsening right foot wound with venous and arterial insufficiency. Patient has not followed up with vascular surgery as he has not been able to establish care in between hospitalization and rehab stays. He has not been able to independently change his dressings. * WBC 9.8 on admission, afebrile * Wound culture from previous showed visits grew VRE, pseudomonas * He received IV vancomycin in the ED. At this time do not feel strongly about IV antibiotics given lack of normal WBC, afebrile. Procal normal, lactic normal. * Last admission he had arterial duplex which shows moderate arterial insufficiency. I called and spoke with Dr Barnes, vascular surgeon at [facility] who has accepted him for transport for vascular intervention. Bed placement pending. * Continue with local wound care daily and PRN for soiled dressings. * HARIKA ordered now * Holding Eliquis for anticipation of vascular surgery, SCD's ordered (2) Lymphedema of both lower extremities: Code(s): I89.0 - Lymphedema, not elsewhere classified Status: Acute Assessment and Plan: Stable, encourage foot elevation (3) Chronic congestive heart failure: Qualifiers: Heart failure type: combined systolic and diastolic Qualified Code(s): I50.42 - Chronic combined systolic (congestive) and diastolic (congestive) heart failure Code(s): I50.9 - Heart failure, unspecified Status: Chronic Assessment and Plan: Appears euvolemic. Stable. Continue home medications. (4) Chronic kidney disease: Code(s): N18.9 - Chronic kidney disease, unspecified Status: Acute Assessment and Plan: Cr 2.20 which is around his baseline. Renal function tends to run 1.5-2.2 mg/dl * avoid nephrotoxic medications * renally dose medications (5) Obstructive sleep apnea: Code(s): G47.33 - Obstructive sleep apnea (adult) (pediatric) Status: Chronic Assessment and Plan: CPAP home settings ordered Subjective Date/time seen: 01/16/24 08:58 Interval history: Patient is resting bed in no acute distress. He reports new pain to his right foot, with increased redness, and foul smelling drainage. Review of Systems Review of Systems: 12 systems were reviewed and are negativ e except for as per HPI. All systems reviewed & are unremarkable except as noted in HPI and below Exam Narrative: General: appears comfortable, in no acute distress Respiratory: breathing is unlabored with even chest rise/fall, lungs are clear without wheezing, rhonchi, and crackles Cardiovascular: Rate and rhythm regular, normal s1s2, no murmur Abdomen: Soft, round, non-tender, active bowel sounds Extremities: No cyanosis, edema, clubbing. Pulses 2/2 Neuro: A&O x 4 Skin: Warm, dry, intact. Chronic wound on the dorsum of the right foot extending into the toes with open wound bed with red wound base and maceration with brown, yellow areas. Objective Data Vital Signs Vital Signs: Vital Signs - 24 hr 01/15/24 13:39 01/15/24 16:34 01/15/24 19:35 Temperature 98.3 F 98.1 F 98.6 F Pulse Rate 91 94 94 Respiratory Rate 19 19 16 Blood Pressure 114/63 120/66 147/71 H Pulse Oximetry 98 96 97 Oxygen Delivery Room Air 01/15/24 20:00 01/16/24 03:45 01/16/24 05:11 Temperature 98.6 F Pulse Rate 90 96 Respiratory Rate 18 Blood Pressure 126/63 Pulse Oximetry 93 96 Oxygen Delivery Room Air Intake/Output Intake/Output: Intake & Output 01/13/24 01/14/24 01/15/24 01/16/24 23:59 23:59 23:59 23:59 Intake Total 1740 250 Output Total 1100 750 Balance 640 -500 Meds/Results Medications: Active Medications Generic Name Dose Route Start Last Admin Trade Name Freq PRN Reason Stop Dose Admin Acetaminophen 650 mg 01/15/24 15:47 Acetaminophen 325 Mg Tablet PO Q4H PRN Mild Pain (1-3) or Fever Acetazolamide 250 mg 01/16/24 09:00 Acetazolamide Tab 250 Mg Tablet PO DAILY ANGELA Allopurinol 100 mg 01/16/24 08:00 Allopurinol 100 Mg Tablet PO DAILY@0800 ANGELA Apixaban 5 mg 01/15/24 21:00 01/15/24 20:07 Apixaban 5 Mg Tablet PO 5 mg Q12HR [facility] Administration Bumetanide 1 mg 01/16/24 09:00 Bumetanide 1 Mg Tablet PO TID [facility] Calcitriol 0.25 mcg 01/17/24 09:00 Calcitriol 0.25 Mcg Capsule PO MoWeFr@0900 [facility] Docusate Sodium 100 mg 01/16/24 09:00 Docusate Sodium 100 Mg Capsule PO Q12H [facility] Fluticasone Propionate 1 spray 01/15/24 19:39 Fluticasone Propionate 0.05% Na Spr 16 Gm Btl (*Bkc) NASAL DAILY PRN Congestion Gabapentin 300 mg 01/15/24 19:40 01/16/24 05:10 Gabapentin 300 Mg Capsule PO 300 mg Q8HR [facility] Administration Hydromorphone HCl 0.5 mg 01/15/24 19:40 01/15/24 23:02 Hydromorphone Hcl Inj (*Crx) 1 Mg/Ml Syr IV PUSH 0.5 mg Q3H PRN Administration Pain Rated 7-10 Vancomycin HCl 1,500 mg in 500 mls @ 250 mls/hr 01/15/24 16:00 01/15/24 18:49 Vancomycin 1,500 Mg/Ns 500 Ml IVPB Infused Q24H [facility] Infusion Levothyroxine Sodium 200 mcg 01/16/24 06:30 01/16/24 05:10 Levothyroxine Sodium 100 Mcg Tablet PO 200 mcg DAILY@0630 [facility] Administration Loratadine 10 mg 01/16/24 09:00 Loratadine 10 Mg Tablet PO DAILY [facility] Metoprolol Tartrate 50 mg 01/15/24 21:00 01/15/24 20:07 Metoprolol Tartrate 50 Mg Tab PO 50 mg Q12HR [facility] Administration Minoxidil 10 mg 01/16/24 09:00 Minoxidil 10 Mg Tablet PO DAILY [facility] Multi-Ingred Cream/Lotion/Oil/Oint 1 applic 01/15/24 21:00 01/15/24 20:08 Eucerin Cream 120 Gm Jar TOPICAL 1 applic Q12HR [facility] Administration Polyethylene Glycol 17 gm 01/15/24 19:39 Polyethylene Glycol 3350 17 Gm Powd.Pack PO DAILY PRN Constipation Senna/Docusate Sodium 1 tab 01/15/24 19:39 Senna/Docusate Sodium Tablet PO HS PRN CONSTIPATION Spironolactone 25 mg 01/16/24 09:00 Spironolactone 25 Mg Tablet PO DAILY [facility] Tamsulosin HCl 0.4 mg 10/17/24 09:00 Tamsulosin Hcl 0.4 [facility] [place] Results: ITS Impressions Foot X-Ray 01/15/24 14:50 IMPRESSION: 1. 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 No evident osteoarthritis or acute osseous abnormality. Labs Labs: Laboratory Results - last 24 hr 01/15/24 01/16/24 14:31 05:38 WBC 8.5 9.8 RBC 3.81 L 3.48 L Hgb 11.2 L 10.0 L Hct 36.3 L 33.4 L MCV 95.3 96.0 MCH 29.4 28.7 MCHC 30.9 L 29.9 L RDW 15.8 H 15.7 H Plt Count 336 299 MPV 9.9 10.2 Immature Gran % (Auto) 1.1 H Neut % (Auto) 77.4 H Lymph % (Auto) 6.8 L [place] % (Auto) 8.0 Eos % (Auto) 5.5 H Baso % (Auto) 1.2 Lymph # (Auto) 0.58 L [place] # (Auto) 0.7 H Eos # (Auto) 0.5 H Baso # (Auto) 0.1 Abs Immat Gran (auto) 0.09 H Absolute Neuts (auto) 6.6 Absolute Nucleated RBC 0.000 Nucleated RBC % 0.0 PT 15.8 H INR 1.2 APTT 29.5 Sodium 135 L 135 L Potassium 3.9 4.1 Chloride 91 L 96 L Carbon Dioxide 34 H 32 H Anion Gap 10 7 BUN 45 H D 42 H Creatinine 2.20 H 2.20 H Estim Creat Clear Calc 42 42 Estimated GFR 29 L 29 L Glucose 111 H 127 H Lactic Acid 1.4 Calcium 9.3 8.8 Magnesium 2.1 Total Bilirubin 0.5 AST 18 ALT 8 Alkaline Phosphatase 46 C-Reactive Protein 2.3 H 3.2 H Total Protein 8.0 Albumin 4.5 Procalcitonin 0.2 Quality VTE Prophylaxis VTE prophylaxis: pharmacologic ordered (on apixaban)
[2024-01-16] MEDS: TAMSULOSIN HCL 0.4 MG CAPSULE PO (09:14)
[2024-01-16] MEDS: APIXABAN 5 MG TABLET PO (09:14)
[2024-01-16] MEDS: METOPROLOL TARTRATE 50 MG TAB PO ×2 (09:14→20:53)
[2024-01-16] MEDS: acetaZOLAMIDE TAB 250 MG TABLET PO (09:14)
[2024-01-16] MEDS: SPIRONOLACTONE 25 MG TABLET PO (09:14)
[2024-01-16] MEDS: DOCUSATE SODIUM 100 MG CAPSULE PO ×2 (09:14→20:54)
[2024-01-16] MEDS: allopurinoL 100 MG TABLET PO (09:14)
[2024-01-16] MEDS: minoxidiL 10 MG TABLET PO (09:14)
[2024-01-16] MEDS: LORATADINE 10 MG TABLET PO (09:14)
[2024-01-16] MEDS: EUCERIN CREAM 120 GM JAR 1 APPLIC TOPICAL ×2 (09:15→20:54)
[2024-01-16] MEDS: ACETAMINOPHEN 325 MG TABLET 650 MG PO (09:18)
[2024-01-16] MEDS: BUMETANIDE 1 MG TABLET PO ×3 (10:03→17:15)
[2024-01-16] MEDS: HYDROmorphone HCL INJ (*CRX) 1 MG/ML SYR 0.5 MG IV PUSH (20:58)
[2024-01-17 03:52] VITALS: BP 120/70; PULSE 96; RESP 18; TEMP 37.5; O2SAT 100
[2024-01-17] MEDS: LEVOTHYROXINE SODIUM 100 MCG TABLET 200 MCG PO (05:37)
[2024-01-17] MEDS: GABAPENTIN 300 MG CAPSULE PO ×3 (05:38→20:19)
[2024-01-17 06:03] LABS: Basophils Absolute Auto 0.1 K/mm3 (0.0-0.1); Basophils Percent Auto 0.5 % (0.2-1.2); Eosinophils Absolute Auto 0.3 K/mm3 (0-0.3); Eosinophils Percent Auto 3.1 % (0-4.4); Hematocrit 31.5 % (42.0-52.0); Hemoglobin 9.8 g/dL (14.0-18.0); Immature Granulocyte Absolute 0.07 K/mm3 (0.00-0.031); Immature Granulocyte Percent A 0.7 % (0-0.5); Lymphocytes Absolute Auto 0.46 K/mm3 (0.9-3.2); Lymphocytes Percent Auto 4.7 % (18.3-44.2); Mean Corpuscular HGB Conc 31.1 g/dl (32-36); Mean Corpuscular Hemoglobin 29.5 pg (26-34); Mean Corpuscular Volume 94.9 fl (80-100); Mean Platelet Volume 10.1 fl (7.4-10.4); Monocytes Absolute Auto 0.9 K/mm3 (0.1-0.6); Monocytes Percent Auto 8.9 % (2.6-8.5); Neutrophils Percent Auto 82.1 % (45.5-73.1); Platelet Count Result 273 k/mm3 (150-375); Red Blood Count 3.32 M/mm3 (4.6-6.20); Red Cell Distribution Width 15.3 % (11.5-14.5); White Blood Count 9.7 K/mm3 (4.5-10.0)
[2024-01-17 06:13] LABS: Alanine Aminotransferase 6 U/L (6-50); Albumin Level 3.8 g/dL (3.5-5.1); Alkaline Phosphatase 41 U/L (38-126); Anion Gap 7 mmol/L (4-12); Aspartate Amino Transferase 12 U/L (17-59); Bilirubin,Total 0.8 mg/dL (0.2-1.3); Blood Urea Nitrogen 43 mg/dL (9-20); Carbon Dioxide 32 mmol/L (22-30); Chloride 95 mmol/L (98-107); Estimated CRCL calculation 44 ml/min; Estimated Glomerular Filt Rate 29; Glucose 120 mg/dL (65-110); Potassium 3.4 mmol/L (3.4-5.0); Sodium 134 mmol/L (137-145)
[2024-01-17 08:56] VITALS: O2SAT 96
[2024-01-17] MEDS: LORATADINE 10 MG TABLET PO (08:58)
[2024-01-17] MEDS: DOCUSATE SODIUM 100 MG CAPSULE PO ×2 (08:58→20:19)
[2024-01-17] MEDS: acetaZOLAMIDE TAB 250 MG TABLET PO (08:58)
[2024-01-17] MEDS: SPIRONOLACTONE 25 MG TABLET PO (08:58)
[2024-01-17] MEDS: calcitrioL 0.25 MCG CAPSULE PO (08:58)
[2024-01-17] MEDS: METOPROLOL TARTRATE 50 MG TAB PO ×2 (08:58→20:19)
[2024-01-17] MEDS: BUMETANIDE 1 MG TABLET PO ×3 (08:58→16:37)
[2024-01-17] MEDS: allopurinoL 100 MG TABLET PO (08:58)
[2024-01-17] MEDS: minoxidiL 10 MG TABLET PO (08:58)
[2024-01-17] MEDS: TAMSULOSIN HCL 0.4 MG CAPSULE PO (08:58)
[2024-01-17] MEDS: EUCERIN CREAM 120 GM JAR 1 APPLIC TOPICAL ×2 (09:00→20:19)
[2024-01-17 14:00] VITALS: BP 118/83; PULSE 86; RESP 19; TEMP 36.8; O2SAT 97
[2024-01-17] MEDS: HYDROcodone/acetaminophen (*CRX) 5-325 MG TABLET 1 TAB PO (14:14)
--- NOTE | 2024-01-17 16:39 | P.PNIM_ITS ---
Progress Note: A&P Assessment and Plan (1) Wound of right foot: Code(s): S91.301A - Unspecified open wound, right foot, initial encounter Status: Acute Assessment and Plan: Chronic, worsening right foot wound with venous and arterial insufficiency. Patient has not followed up with vascular surgery as he has not been able to establish care in between hospitalization and rehab stays. He has not been able to independently change his dressings. * WBC 9.8 on admission, afebrile * Wound culture from previous showed visits grew VRE, pseudomonas * He received IV vancomycin in the ED. At this time do not feel strongly about IV antibiotics given lack of normal WBC, afebrile. Procal normal, lactic normal. * Last admission he had arterial duplex which shows moderate arterial insufficiency. I called and spoke with Dr Barnes, vascular surgeon at [facility] who has accepted him for transport for vascular intervention. Bed placement pending. * Continue with local wound care daily and PRN for soiled dressings. * HARIKA ordered now * Holding Eliquis for anticipation of vascular surgery, SCD's ordered 01/17/24: * Awaiting bed at [facility] for vascular services * Continue wound care daily * Continue to hold Eliquis for potential vascular surgery at [facility] (2) Lymphedema of both lower extremities: Code(s): I89.0 - Lymphedema, not elsewhere classified Status: Acute Assessment and Plan: Stable, encourage foot elevation 01/17/24: * No change (3) Chronic congestive heart failure: Qualifiers: Heart failure type: combined systolic and diastolic Qualified Code(s): I50.42 - Chronic combined systolic (congestive) and diastolic (congestive) heart failure Code(s): I50.9 - Heart failure, unspecified Status: Chronic Assessment and Plan: Appears euvolemic. Stable. Continue home medications. 01/17/24: * No change (4) Chronic kidney disease: Code(s): N18.9 - Chronic kidney disease, unspecified Status: Acute Assessment and Plan: Cr 2.20 which is around his baseline. Renal function tends to run 1.5-2.2 mg/dl * avoid nephrotoxic medications * renally dose medications 01/17/24: * Currently at baseline * No change (5) Obstructive sleep apnea: Code(s): G47.33 - Obstructive sleep apnea (adult) (pediatric) Status: Chronic Assessment and Plan: CPAP home settings ordered 01/17/24: * No change Time Spent With Patient Time with patient: 25 - 35 minutes Subjective Date/time seen: 01/17/24 16:39 Interval history: Patient today denies complaints today. Labs and imaging reviewed. Review of Systems Review of Systems: All systems reviewed & are unremarkable except as noted in HPI and below Exam Narrative: General: In no acute distress, well nourished Head: atraumatic, no encephalopathy Eyes: EOMI, PERRLA, sclera clear ENT: moist mucous membranes, nasal passages clear Neck: supple, no JVD, no adenopathy, trachea midline Cardiac: Normal S1 and S2. No murmur, gallops or friction rubs, peripheral pulses intact. Respiratory: Lungs clear to auscultation diminished in the bases, no adventitious lung sounds, currently on room air Gastrointestinal: soft, non-distended, non-tender, normoactive bowel sounds. : voiding without difficulty. Extremities: moves all extremities well, no edema Skin: Open wounds to right foot with granulation tissue and erythema Neuro: Alert and oriented x4, cranial nerves intact, no neuro deficits. Psych: normal mood, normal affect, interactive Objective Data Vital Signs Vital Signs: Vital Signs - 24 hr 01/16/24 21:03 01/16/24 20:00 01/17/24 03:52 Temperature 98 F 99.5 F Pulse Rate 112 H 96 Respiratory Rate 18 18 Blood Pressure 121/61 120/70 Pulse Oximetry 92 100 Oxygen Delivery Room Air Fraction of Inspired Oxygen 01/16/24 22:35 01/17/24 08:56 01/17/24 09:20 Temperature Pulse Rate Respiratory Rate Blood Pressure Pulse Oximetry 94 96 Oxygen Delivery Room Air Room Air Fraction of Inspired Oxygen 21 01/17/24 14:00 Temperature 98.3 F Pulse Rate 86 Respiratory Rate 19 Blood Pressure 118/83 Pulse Oximetry 97 Oxygen Delivery Fraction of Inspired Oxygen Intake/Output Intake/Output: Intake & Output 01/14/24 01/15/24 01/16/24 01/17/24 23:59 23:59 23:59 23:59 Intake Total 1740 1280 510 Output Total 1100 2250 1850 Balance 621 -210 -8480 Meds/Results Medications: Active Medications Generic Name Dose Route Start Last Admin Trade Name Freq PRN Reason Stop Dose Admin Acetaminophen 650 mg 01/15/24 15:47 01/16/24 09:18 Acetaminophen 325 Mg Tablet PO 650 mg Q4H PRN Administration Mild Pain (1-3) or Fever Hydrocodone Bitart/Acetaminophen 1 tab 01/17/24 14:03 01/17/24 14:14 Hydrocodone/Acetaminophen (*Crx) 5-325 Mg Tablet PO 1 tab Q6H PRN Administration Pain Rated 4-6 Acetazolamide 250 mg 01/16/24 09:00 01/17/24 08:58 Acetazolamide Tab 250 Mg Tablet PO 250 mg DAILY ANGELA Administration Allopurinol 100 mg 01/16/24 08:00 01/17/24 08:58 Allopurinol 100 Mg Tablet PO 100 mg DAILY@0800 ANGELA Administration Apixaban 5 mg 01/15/24 21:00 01/16/24 09:14 Apixaban 5 Mg Tablet PO 5 mg Q12HR ANGELA Administration Bumetanide 1 mg 01/16/24 09:00 01/17/24 14:14 Bumetanide 1 Mg Tablet PO 1 mg TID ANGELA Administration Calcitriol 0.25 mcg 01/17/24 09:00 01/17/24 08:58 Calcitriol 0.25 Mcg Capsule PO 0.25 mcg MoWeFr@0900 [facility] Administration Docusate Sodium 100 mg 01/16/24 09:00 01/17/24 08:58 Docusate Sodium 100 Mg Capsule PO 100 mg Q12H ANGELA Administration Fluticasone Propionate 1 spray 01/15/24 19:39 Fluticasone Propionate 0.05% Na Spr 16 Gm Btl (*Bkc) NASAL DAILY PRN Congestion Gabapentin 300 mg 01/15/24 19:40 01/17/24 14:14 Gabapentin 300 Mg Capsule PO 300 mg Q8HR ANGELA Administration Hydromorphone HCl 0.5 mg 01/15/24 19:40 01/16/24 20:58 Hydromorphone Hcl Inj (*Crx) 1 Mg/Ml Syr IV PUSH 0.5 mg Q3H PRN Administration Pain Rated 7-10 Levothyroxine Sodium 200 mcg 01/16/24 06:30 01/17/24 05:37 Levothyroxine Sodium 100 Mcg Tablet PO 200 mcg DAILY@0630 ANGELA Administration Loratadine 10 mg 01/16/24 09:00 01/17/24 08:58 Loratadine 10 Mg Tablet PO 10 mg DAILY ANGELA Administration Metoprolol Tartrate 50 mg 01/15/24 21:00 01/17/24 08:58 Metoprolol Tartrate 50 Mg Tab PO 50 mg Q12HR ANGELA Administration Minoxidil 10 mg 01/16/24 09:00 01/17/24 08:58 Minoxidil 10 Mg Tablet PO 10 mg DAILY ANGELA Administration Multi-Ingred Cream/Lotion/Oil/Oint 1 applic 01/15/24 21:00 01/17/24 09:00 Eucerin Cream 120 Gm Jar TOPICAL 1 applic Q12HR ANGELA Administration Ondansetron HCl 4 mg 01/17/24 14:03 Ondansetron Inj 4 Mg/2 Ml Vial IV PUSH Q6H PRN Nausea And Vomiting Polyethylene Glycol 17 gm 01/15/24 19:39 Polyethylene Glycol 3350 17 Gm Powd.Pack PO DAILY PRN Constipation Senna/Docusate Sodium 1 tab 01/15/24 19:39 Senna/Docusate Sodium Tablet PO HS PRN CONSTIPATION Spironolactone 25 mg 01/16/24 09:00 01/17/24 08:58 Spironolactone 25 Mg Tablet PO 25 mg DAILY ANGELA Administration Tamsulosin HCl 0.4 mg 01/16/24 09:00 01/17/24 08:58 Tamsulosin Hcl 0.4 Mg Capsule PO 0.4 mg QAM ANGELA Administration Radiology Results: ITS Impressions Foot X-Ray 01/15/24 14:50 IMPRESSION: 1. 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 No evident osteoarthritis or acute osseous abnormality. Labs Labs: Laboratory Results - last 24 hr 01/17/24 05:37 WBC 9.7 RBC 3.32 L Hgb 9.8 L Hct 31.5 L MCV 94.9 MCH 29.5 MCHC 31.1 L RDW 15.3 H Plt Count 273 MPV 10.1 Immature Gran % (Auto) 0.7 H Neut % (Auto) 82.1 H Lymph % (Auto) 4.7 L [place] % (Auto) 8.9 H Eos % (Auto) 3.1 Baso % (Auto) 0.5 Lymph # (Auto) 0.46 L [place] # (Auto) 0.9 H Eos # (Auto) 0.3 Baso # (Auto) 0.1 Abs Immat Gran (auto) 0.07 H Absolute Neuts (auto) 8.0 H Absolute Nucleated RBC 0.000 Nucleated RBC % 0.0 Sodium 134 L Potassium 3.4 Chloride 95 L Carbon Dioxide 32 H Anion Gap 7 BUN 43 H Creatinine 2.20 H Estim Creat Clear Calc 44 Estimated GFR 29 L Glucose 120 H Calcium 9.0 Total Bilirubin 0.8 AST 12 L ALT 6 Alkaline Phosphatase 41 Total Protein 7.0 Albumin 3.8 Quality VTE Prophylaxis VTE prophylaxis: mechanical ordered
[2024-01-17 22:00] VITALS: BP 118/54; PULSE 94; RESP 18; TEMP 36.7; O2SAT 96
[2024-01-18 05:51] LABS: Basophils Absolute Auto 0.1 K/mm3 (0.0-0.1); Basophils Percent Auto 0.8 % (0.2-1.2); Eosinophils Absolute Auto 0.4 K/mm3 (0-0.3); Eosinophils Percent Auto 4.7 % (0-4.4); Hemoglobin 9.6 g/dL (14.0-18.0); Immature Granulocyte Absolute 0.07 K/mm3 (0.00-0.031); Immature Granulocyte Percent A 0.8 % (0-0.5); Lymphocytes Absolute Auto 0.49 K/mm3 (0.9-3.2); Lymphocytes Percent Auto 5.8 % (18.3-44.2); Mean Corpuscular Hemoglobin 29.4 pg (26-34); Mean Corpuscular Volume 94.8 fl (80-100); Mean Platelet Volume 9.7 fl (7.4-10.4); Monocytes Absolute Auto 0.7 K/mm3 (0.1-0.6); Monocytes Percent Auto 8.7 % (2.6-8.5); Neutrophils Absolute Auto 6.7 K/mm3 (1.3-6.7); Neutrophils Percent Auto 79.2 % (45.5-73.1); Platelet Count Result 262 k/mm3 (150-375); Red Blood Count 3.27 M/mm3 (4.6-6.20); Red Cell Distribution Width 15.2 % (11.5-14.5); White Blood Count 8.5 K/mm3 (4.5-10.0)
[2024-01-18 06:00] VITALS: BP 128/69; PULSE 83; RESP 16; TEMP 36.2; O2SAT 95
[2024-01-18] MEDS: GABAPENTIN 300 MG CAPSULE PO ×3 (06:00→20:02)
[2024-01-18] MEDS: LEVOTHYROXINE SODIUM 100 MCG TABLET 200 MCG PO (06:00)
[2024-01-18 06:05] LABS: Potassium 3.1 mmol/L (3.4-5.0)
[2024-01-18 06:10] LABS: Alanine Aminotransferase 7 U/L (6-50); Albumin Level 3.8 g/dL (3.5-5.1); Alkaline Phosphatase 44 U/L (38-126); Anion Gap 7 mmol/L (4-12); Aspartate Amino Transferase 16 U/L (17-59); Bilirubin,Total 0.8 mg/dL (0.2-1.3); Blood Urea Nitrogen 44 mg/dL (9-20); Calcium 9.1 mg/dL (8.4-10.2); Carbon Dioxide 35 mmol/L (22-30); Chloride 92 mmol/L (98-107); Estimated CRCL calculation 44 ml/min; Estimated Glomerular Filt Rate 29; Glucose 121 mg/dL (65-110); Sodium 134 mmol/L (137-145)
--- NOTE | 2024-01-18 07:27 | PM.IMPN ---
Progress Note: A&P Assessment and Plan (1) Wound of right foot: Code(s): S91.301A - Unspecified open wound, right foot, initial encounter Status: Acute Assessment and Plan: Chronic, worsening right foot wound with venous and arterial insufficiency. Patient has not followed up with vascular surgery as he has not been able to establish care in between hospitalization and rehab stays. He has not been able to independently change his dressings. WBC 9.8 on admission, afebrile Wound culture from previous showed visits grew VRE, pseudomonas He received IV vancomycin in the ED. At this time do not feel strongly about IV antibiotics given lack of normal WBC, afebrile. Procal normal, lactic normal. Last admission he had arterial duplex which shows moderate arterial insufficiency. I called and spoke with Dr Barnes, [facility] him for transport for vascular intervention. Bed placement pending. Continue with local wound care daily and PRN for soiled dressings. Holding Eliquis for anticipation of vascular surgery, SCD's ordered White count 8.5 today. We have continued to hold antibiotics. Wound with serous drainage and lack of odor. I called and updated his daughter Shyla on the current plan of care. Since August he has been readmitted four times for his right foot wound. He has been in and out of SNF and when he receives daily wound care his foot wound shows improvement. He then returns home and inevitably comes back with worsening progression of this right foot wound. His daughter says that her son has helped with the wound changes intermittently but her father does not always let them know about changes to the wound care and does not always reach out to them for help. They are willing to help but just need guidance for what is expected in terms of wound care. She reports his wound gets better when he is receiving care at SNF. She admits that he is not always the most compliant with keeping his legs elevated at home. Given this persistent revolution of hospitalization and lack of or noncompliance with vascular follow up, I contacted [facility] and discussed the case with vascular surgery who is willing to accept him for transfer for vascular intervention in hopes that this, along with local wound care will be enough to help save his foot. This was discussed in detail with the patient and the daughter. I did tell the daughter that if he is unable to be transferred due to lack of bed placement then he will need to follow up with vascular as an outpatient and should he return to the emergency department he should be TRANSFERRED TO A FACILITY WITH VASCULAR SURGERY. (2) Lymphedema of both lower extremities: Code(s): I89.0 - Lymphedema, not elsewhere classified Status: Acute Assessment and Plan: Stable, encourage foot elevation (3) Chronic congestive heart failure: Qualifiers: Heart failure type: combined systolic and diastolic Qualified Code(s): I50.42 - Chronic combined systolic (congestive) and diastolic (congestive) heart failure Code(s): I50.9 - Heart failure, unspecified Status: Chronic Assessment and Plan: Appears euvolemic. Stable. Continue home medications. Sodium and K+ downtrending. Diamox is usually 4 x per week per patient. Holding daily dosing. Replete K+ with 40 mEq now. Add on magnesium. (4) Chronic kidney disease: Code(s): N18.9 - Chronic kidney disease, unspecified Status: Acute Assessment and Plan: Cr 2.20 which is around his baseline. Renal function tends to run 1.5-2.2 mg/dl avoid nephrotoxic medications renally dose medications (5) Obstructive sleep apnea: Code(s): G47.33 - Obstructive sleep apnea (adult) (pediatric) Status: Chronic Assessment and Plan: CPAP home settings ordered Subjective Date/time seen: 01/18/24 07:27 Interval history: No acute events overnight. We continue to wait for transfer for vascular surgery. Overall Mr. Cyr is doing well but he is depressed and is tired of having to come back to the hospital. He complains of a heaviness in his chest at times with catching of his breathing. Review of Systems Review of Systems: All systems reviewed & are unremarkable except as noted in HPI and below Exam Narrative: General: appears comfortable, in no acute distress Respiratory: breathing is unlabored with even chest rise/fall, lungs are clear without wheezing, rhonchi, and crackles Cardiovascular: Rate and rhythm regular, normal s1s2, no murmur Abdomen: Soft, round, non-tender, active bowel sounds Extremities: No cyanosis, edema, clubbing. Pulses 2/2 Neuro: A&O x 4 Skin: Warm, dry, intact. Chronic wound on the dorsum of the right foot extending into the toes with open wound bed with red wound base and maceration with brown, yellow areas. Objective Data Vital Signs Vital Signs: Vital Signs - 24 hr 01/17/24 08:56 01/17/24 09:20 01/17/24 14:00 Temperature 98.3 F Pulse Rate 86 Respiratory Rate 19 Blood Pressure 118/83 Pulse Oximetry 96 97 Oxygen Delivery Room Air Room Air Fraction of Inspired Oxygen 21 01/17/24 20:00 01/17/24 20:50 01/17/24 22:00 Temperature 98.1 F Pulse Rate 94 Respiratory Rate 18 Blood Pressure 118/54 L Pulse Oximetry 96 Oxygen Delivery Room Air CPAP Fraction of Inspired Oxygen 01/17/24 23:41 Temperature Pulse Rate Respiratory Rate Blood Pressure Pulse Oximetry Oxygen Delivery CPAP Fraction of Inspired Oxygen Intake/Output Intake/Output: Intake & Output 01/15/24 01/16/24 01/17/24 01/18/24 23:59 23:59 23:59 23:59 Intake Total 1740 1280 1230 Output Total 1100 2250 2950 400 Balance 640 970 -1720 -400 Meds/Results Medications: Active Medications Generic Name Dose Route Start Last Admin Trade Name Freq PRN Reason Stop Dose Admin Acetaminophen 650 mg 01/15/24 15:47 01/16/24 09:18 Acetaminophen 325 Mg Tablet PO 650 mg Q4H PRN Administration Mild Pain (1-3) or Fever Hydrocodone Bitart/Acetaminophen 1 tab 01/17/24 14:03 01/17/24 14:14 Hydrocodone/Acetaminophen (*Crx) 5-325 Mg Tablet PO 1 tab Q6H PRN Administration Pain Rated 4-6 Acetazolamide 250 mg 01/16/24 09:00 01/17/24 08:58 Acetazolamide Tab 250 Mg Tablet PO 250 mg DAILY ANGELA Administration Allopurinol 100 mg 01/16/24 08:00 01/17/24 08:58 Allopurinol 100 Mg Tablet PO 100 mg DAILY@0800 ANGELA Administration Apixaban 5 mg 01/15/24 21:00 01/16/24 09:14 Apixaban 5 Mg Tablet PO 5 mg Q12HR ANGELA Administration Bumetanide 1 mg 01/16/24 09:00 01/17/24 16:37 Bumetanide 1 Mg Tablet PO 1 mg TID ANGELA Administration Calcitriol 0.25 mcg 01/17/24 09:00 01/17/24 08:58 Calcitriol 0.25 Mcg Capsule PO 0.25 mcg [id number]@0900 ANGELA Administration Docusate Sodium 100 mg 01/16/24 09:00 01/17/24 20:19 Docusate Sodium 100 Mg Capsule PO 100 mg Q12H ANGELA Administration Fluticasone Propionate 1 spray 01/15/24 19:39 Fluticasone Propionate 0.05% Na Spr 16 Gm Btl (*Bkc) NASAL DAILY PRN Congestion Gabapentin 300 mg 01/15/24 19:40 01/18/24 06:00 Gabapentin 300 Mg Capsule PO 300 mg Q8HR ANGELA Administration Hydromorphone HCl 0.5 mg 01/15/24 19:40 01/16/24 20:58 Hydromorphone Hcl Inj (*Crx) 1 Mg/Ml Syr IV PUSH 0.5 mg Q3H PRN Administration Pain Rated 7-10 Levothyroxine Sodium 200 mcg 01/16/24 06:30 01/18/24 06:00 Levothyroxine Sodium 100 Mcg Tablet PO 200 mcg DAILY@0630 [facility] Administration Loratadine 10 mg 01/16/24 09:00 01/17/24 08:58 Loratadine 10 Mg Tablet PO 10 mg DAILY [facility] Administration Metoprolol Tartrate 50 mg 01/15/24 21:00 01/17/24 20:19 Metoprolol Tartrate 50 Mg Tab PO 50 mg Q12HR ANGELA Administration Minoxidil 10 mg 01/16/24 09:00 01/17/24 08:58 Minoxidil 10 Mg Tablet PO 10 mg DAILY [facility] Administration Multi-Ingred Cream/Lotion/Oil/Oint 1 applic 01/15/24 21:00 01/17/24 20:19 Eucerin Cream 120 Gm Jar TOPICAL 1 applic Q12HR [facility] Administration Ondansetron HCl 4 mg 01/17/24 14:03 Ondansetron Inj 4 Mg/2 Ml Vial IV PUSH Q6H PRN Nausea And Vomiting Polyethylene Glycol 17 gm 01/15/24 19:39 Polyethylene Glycol 3350 17 Gm Powd.Pack PO DAILY PRN Constipation Senna/Docusate Sodium 1 tab 01/15/24 19:39 Senna/Docusate Sodium Tablet PO HS PRN CONSTIPATION Spironolactone 25 mg 01/16/24 09:00 01/17/24 08:58 Spironolactone 25 Mg Tablet PO 25 mg DAILY ANGELA Administration Tamsulosin HCl 0.4 mg 01/16/24 09:00 01/17/24 08:58 Tamsulosin Hcl 0.4 Mg Capsule PO 0.4 mg QAM ANGELA Administration Radiology Results: ITS Impressions Foot X-Ray 01/15/24 14:50 IMPRESSION: 1. 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 No evident osteoarthritis or acute osseous abnormality. Labs Labs: Laboratory Results - last 24 hr 01/18/24 05:31 WBC 8.5 RBC 3.27 L Hgb 9.6 L Hct 31.0 L MCV 94.8 MCH 29.4 MCHC 31.0 L RDW 15.2 H Plt Count 262 MPV 9.7 Immature Gran % (Auto) 0.8 H Neut % (Auto) 79.2 H Lymph % (Auto) 5.8 L [place] % (Auto) 8.7 H Eos % (Auto) 4.7 H Baso % (Auto) 0.8 Lymph # (Auto) 0.49 L [place] # (Auto) 0.7 H Eos # (Auto) 0.4 H Baso # (Auto) 0.1 Abs Immat Gran (auto) 0.07 H Absolute Neuts (auto) 6.7 Absolute Nucleated RBC 0.000 Nucleated RBC % 0.0 Sodium 134 L Potassium 3.1 L Chloride 92 L Carbon Dioxide 35 H Anion Gap 7 BUN 44 H Creatinine 2.20 H Estim Creat Clear Calc 44 Estimated GFR 29 L Glucose 121 H Calcium 9.1 Total Bilirubin 0.8 AST 16 L ALT 7 Alkaline Phosphatase 44 Total Protein 7.0 Albumin 3.8 Quality VTE Prophylaxis VTE prophylaxis: mechanical ordered
[2024-01-18 09:33] VITALS: PULSE 96
[2024-01-18] MEDS: TAMSULOSIN HCL 0.4 MG CAPSULE PO (09:33)
[2024-01-18] MEDS: METOPROLOL TARTRATE 50 MG TAB PO ×2 (09:33→20:02)
[2024-01-18] MEDS: acetaZOLAMIDE TAB 250 MG TABLET PO (09:33)
[2024-01-18] MEDS: minoxidiL 10 MG TABLET PO (09:33)
[2024-01-18] MEDS: SPIRONOLACTONE 25 MG TABLET PO (09:33)
[2024-01-18] MEDS: BUMETANIDE 1 MG TABLET PO ×3 (09:33→17:11)
[2024-01-18] MEDS: allopurinoL 100 MG TABLET PO (09:35)
[2024-01-18] MEDS: LORATADINE 10 MG TABLET PO (09:35)
[2024-01-18] MEDS: DOCUSATE SODIUM 100 MG CAPSULE PO ×2 (09:35→20:02)
[2024-01-18] MEDS: EUCERIN CREAM 120 GM JAR 1 APPLIC TOPICAL ×2 (09:36→21:00)
[2024-01-18 12:32] LABS: Magnesium 2.1 mg/dL (1.6-2.3)
[2024-01-18] MEDS: POTASSIUM CHLORIDE 20 MEQ PACKET (FOR LIQUID) 40 MEQ PO (12:46)
[2024-01-18 14:41] VITALS: BP 131/55; PULSE 95; RESP 19; TEMP 37.1; O2SAT 96
[2024-01-18] MEDS: HYDROcodone/acetaminophen (*CRX) 5-325 MG TABLET 1 TAB PO (17:16)
[2024-01-18 22:00] VITALS: BP 123/60; PULSE 107; RESP 16; TEMP 36.8; O2SAT 95
[2024-01-19 05:41] LABS: Basophils Absolute Auto 0.1 K/mm3 (0.0-0.1); Basophils Percent Auto 0.8 % (0.2-1.2); Eosinophils Absolute Auto 0.4 K/mm3 (0-0.3); Eosinophils Percent Auto 4.9 % (0-4.4); Hemoglobin 10.1 g/dL (14.0-18.0); Immature Granulocyte Absolute 0.07 K/mm3 (0.00-0.031); Immature Granulocyte Percent A 0.9 % (0-0.5); Lymphocytes Absolute Auto 0.45 K/mm3 (0.9-3.2); Lymphocytes Percent Auto 5.8 % (18.3-44.2); Mean Corpuscular HGB Conc 31.6 g/dl (32-36); Mean Corpuscular Hemoglobin 29.5 pg (26-34); Mean Corpuscular Volume 93.6 fl (80-100); Mean Platelet Volume 9.8 fl (7.4-10.4); Monocytes Absolute Auto 0.7 K/mm3 (0.1-0.6); Monocytes Percent Auto 8.6 % (2.6-8.5); Neutrophils Absolute Auto 6.2 K/mm3 (1.3-6.7); Platelet Count Result 280 k/mm3 (150-375); Red Blood Count 3.42 M/mm3 (4.6-6.20); Red Cell Distribution Width 15.4 % (11.5-14.5); White Blood Count 7.8 K/mm3 (4.5-10.0)
[2024-01-19 05:53] LABS: Alanine Aminotransferase 7 U/L (6-50); Alkaline Phosphatase 45 U/L (38-126); Anion Gap 9 mmol/L (4-12); Aspartate Amino Transferase 15 U/L (17-59); Bilirubin,Total 0.9 mg/dL (0.2-1.3); Blood Urea Nitrogen 44 mg/dL (9-20); Calcium 9.1 mg/dL (8.4-10.2); Carbon Dioxide 33 mmol/L (22-30); Chloride 92 mmol/L (98-107); Estimated CRCL calculation 45 ml/min; Estimated Glomerular Filt Rate 31; Glucose 118 mg/dL (65-110); Potassium 3.2 mmol/L (3.4-5.0); Sodium 134 mmol/L (137-145)
[2024-01-19 06:00] VITALS: BP 110/62; PULSE 92; RESP 18; TEMP 36.4; O2SAT 96
[2024-01-19] MEDS: LEVOTHYROXINE SODIUM 100 MCG TABLET 200 MCG PO (06:10)
[2024-01-19] MEDS: HYDROcodone/acetaminophen (*CRX) 5-325 MG TABLET 1 TAB PO ×2 (06:11→20:11)
[2024-01-19] MEDS: GABAPENTIN 300 MG CAPSULE PO ×3 (06:11→20:11)
--- NOTE | 2024-01-19 08:31 | PM.IMPN ---
Progress Note: A&P Assessment and Plan (1) Wound of right foot: Code(s): S91.301A - Unspecified open wound, right foot, initial encounter Status: Acute Assessment and Plan: Chronic, worsening right foot wound with venous and arterial insufficiency. Patient has not followed up with vascular surgery as he has not been able to establish care in between hospitalization and rehab stays. He has not been able to independently change his dressings. WBC 9.8 on admission, afebrile Wound culture from previous showed visits grew VRE, pseudomonas He received IV vancomycin in the ED. At this time do not feel strongly about IV antibiotics given normal WBC and afebrile. Procal normal, lactic normal. Last admission he had arterial duplex which shows moderate arterial insufficiency. I called and spoke with Dr Barnes, vascular surgeon at [facility] who has accepted him for transport for vascular intervention. Bed placement pending. Continue with local wound care daily and PRN for soiled dressings. Holding Eliquis for anticipation of vascular surgery, SCD's ordered White count 8.5 today. We have continued to hold antibiotics. Wound with serous drainage and lack of odor. I called and updated his daughter Shyla on the current plan of care. Since August he has been readmitted four times for his right foot wound. He has been in and out of SNF and when he receives daily wound care his foot wound shows improvement. He then returns home and inevitably comes back with worsening progression of this right foot wound. His daughter says that her son has helped with the wound changes intermittently but her father does not always let them know about changes to the wound care and does not always reach out to them for help. They are willing to help but just need guidance for what is expected in terms of wound care. She reports his wound gets better when he is receiving care at SNF. She admits that he is not always the most compliant with keeping his legs elevated at home. Given this persistent revolution of hospitalization and lack of or noncompliance with vascular follow up, I contacted [facility] and discussed the case with vascular surgery who is willing to accept him for transfer for vascular intervention in hopes that this, along with local wound care will be enough to help save his foot. This was discussed in detail with the patient and the daughter. I did tell the daughter that if he is unable to be transferred due to lack of bed placement then he will need to follow up with vascular as an outpatient and should he return to the emergency department he should be TRANSFERRED TO A FACILITY WITH VASCULAR SURGERY. (2) Lymphedema of both lower extremities: Code(s): I89.0 - Lymphedema, not elsewhere classified Status: Acute Assessment and Plan: Stable, encourage foot elevation (3) Chronic congestive heart failure: Qualifiers: Heart failure type: combined systolic and diastolic Qualified Code(s): I50.42 - Chronic combined systolic (congestive) and diastolic (congestive) heart failure Code(s): I50.9 - Heart failure, unspecified Status: Chronic Assessment and Plan: Appears euvolemic. Stable. Continue home medications. Sodium and K+ downtrending. Diamox is usually 4 x per week per patient. Holding daily dosing. Replete K+ with 40 mEq now. Add on magnesium. (4) Chronic kidney disease: Code(s): N18.9 - Chronic kidney disease, unspecified Status: Acute Assessment and Plan: Cr 2.20 which is around his baseline. Renal function tends to run 1.5-2.2 mg/dl avoid nephrotoxic medications renally dose medications (5) Obstructive sleep apnea: Code(s): G47.33 - Obstructive sleep apnea (adult) (pediatric) Status: Chronic Assessment and Plan: CPAP home settings ordered Subjective Date/time seen: 01/19/24 08:31 Interval history: No acute events overnight. Attempted to contact his daughter to discuss discharge. I discussed with patient discharging today to [facility] for continued wound care. He is now saying he does not want to go to [facility] for wound care alone. He feels that his grandson can complete the wound care changes even though a couple of days ago he said his grandson was not comfortable with the dressing changes. Patient will require EMS transportation home as he is wheelchair bound and his motorized wheelchair is at home. Will plan to speak with his PCP, [facility], and try to schedule him a vascular surgery appointment. When asked today why he has not followed up with a vascular doctor he says he just didn't do it . He has difficulty with transportation given the fact that he uses a motorized wheelchair. He uses [employer]. Review of Systems Review of Systems: All systems reviewed & are unremarkable except as noted in HPI and below Exam Narrative: General: appears comfortable, in no acute distress Respiratory: breathing is unlabored with even chest rise/fall, lungs are clear without wheezing, rhonchi, and crackles Cardiovascular: Rate and rhythm regular, normal s1s2, no murmur Abdomen: Soft, round, non-tender, active bowel sounds Extremities: No cyanosis, edema, clubbing. Pulses 2/2 Neuro: A&O x 4 Skin: Warm, dry, intact. Chronic wound on the dorsum of the right foot extending into the toes with open wound bed with red wound base and maceration with brown, yellow areas. Objective Data Vital Signs Vital Signs: Vital Signs - 24 hr 01/18/24 09:33 01/18/24 14:41 01/18/24 09:40 Temperature 98.8 F Pulse Rate 96 95 Respiratory Rate 19 Blood Pressure 131/55 L Pulse Oximetry 96 Oxygen Delivery Room Air 01/18/24 20:00 01/18/24 22:00 01/19/24 06:00 Temperature 98.3 F 97.6 F Pulse Rate 107 H 92 Respiratory Rate 16 18 Blood Pressure 123/60 110/62 Pulse Oximetry 95 96 Oxygen Delivery Room Air Intake/Output Intake/Output: Intake & Output 01/16/24 01/17/24 01/18/24 01/19/24 23:59 23:59 23:59 23:59 Intake Total 1280 1230 2180 600 Output Total 2250 2950 2900 1800 Balance -970 -1720 -720 -1200 Meds/Results Medications: Active Medications Generic Name Dose Route Start Last Admin Trade Name Freq PRN Reason Stop Dose Admin Acetaminophen 650 mg 01/15/24 15:47 01/16/24 09:18 Acetaminophen 325 Mg Tablet PO 650 mg Q4H PRN Administration Mild Pain (1-3) or Fever Hydrocodone Bitart/Acetaminophen 1 tab 01/17/24 14:03 01/19/24 06:11 Hydrocodone/Acetaminophen (*Crx) 5-325 Mg Tablet PO 1 tab Q6H PRN Administration Pain Rated 4-6 Acetazolamide 250 mg 01/16/24 09:00 01/18/24 09:33 Acetazolamide Tab 250 Mg Tablet PO 250 mg DAILY ANGELA Administration Allopurinol 100 mg 01/16/24 08:00 01/18/24 09:35 Allopurinol 100 Mg Tablet PO 100 mg DAILY@0800 ANGELA Administration Apixaban 5 mg 01/15/24 21:00 01/16/24 09:14 Apixaban 5 Mg Tablet PO 5 mg Q12HR ANGELA Administration Bumetanide 1 mg 01/16/24 09:00 01/18/24 17:11 Bumetanide 1 Mg Tablet PO 1 mg TID ANGELA Administration Calcitriol 0.25 mcg 01/17/24 09:00 01/17/24 08:58 Calcitriol 0.25 Mcg Capsule PO 0.25 mcg MoWeFr@0900 ANGELA Administration Docusate Sodium 100 mg 01/16/24 09:00 01/18/24 20:02 Docusate Sodium 100 Mg Capsule PO 100 mg Q12H [facility] Administration Fluticasone Propionate 1 spray 01/15/24 19:39 Fluticasone Propionate 0.05% Na Spr 16 Gm Btl (*Bkc) NASAL DAILY PRN Congestion Gabapentin 300 mg 01/15/24 19:40 01/19/24 06:11 Gabapentin 300 Mg Capsule PO 300 mg Q8HR [facility] Administration Hydromorphone HCl 0.5 mg 01/15/24 19:40 01/16/24 20:58 Hydromorphone Hcl Inj (*Crx) 1 Mg/Ml Syr IV PUSH 0.5 mg Q3H PRN Administration Pain Rated 7-10 Levothyroxine Sodium 200 mcg 01/16/24 06:30 01/19/24 06:10 Levothyroxine Sodium 100 Mcg Tablet PO 200 mcg DAILY@0630 [facility] Administration Loratadine 10 mg 01/16/24 09:00 01/18/24 09:35 Loratadine 10 Mg Tablet PO 10 mg DAILY [facility] Administration Metoprolol Tartrate 50 mg 01/15/24 21:00 01/18/24 20:02 Metoprolol Tartrate 50 Mg Tab PO 50 mg Q12HR [facility] Administration Minoxidil 10 mg 01/16/24 09:00 01/18/24 09:33 Minoxidil 10 Mg Tablet PO 10 mg DAILY [facility] Administration Multi-Ingred Cream/Lotion/Oil/Oint 1 applic 01/15/24 21:00 01/18/24 21:00 Eucerin Cream 120 Gm Jar TOPICAL 1 applic Q12HR ANGELA Administration Ondansetron HCl 4 mg 01/17/24 14:03 Ondansetron Inj 4 Mg/2 Ml Vial IV PUSH Q6H PRN Nausea And Vomiting Polyethylene Glycol 17 gm 01/15/24 19:39 Polyethylene Glycol 3350 17 Gm Powd.Pack PO DAILY PRN Constipation Senna/Docusate Sodium 1 tab 01/15/24 19:39 Senna/Docusate Sodium Tablet PO HS PRN CONSTIPATION Spironolactone 25 mg 01/16/24 09:00 01/18/24 09:33 Spironolactone 25 Mg Tablet PO 25 mg DAILY ANGELA Administration Tamsulosin HCl 0.4 mg 01/16/24 09:00 01/18/24 09:33 Tamsulosin Hcl 0.4 Mg Capsule PO 0.4 mg QAM ANGELA Administration Radiology Results: ITS Impressions Foot X-Ray 01/15/24 14:50 IMPRESSION: 1. 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 No evident osteoarthritis or acute osseous abnormality. Labs Labs: Laboratory Results - last 24 hr 01/18/24 01/19/24 05:31 05:25 WBC 7.8 RBC 3.42 L Hgb 10.1 L Hct 32.0 L MCV 93.6 MCH 29.5 MCHC 31.6 L RDW 15.4 H Plt Count 280 MPV 9.8 Immature Gran % (Auto) 0.9 H Neut % (Auto) 79.0 H Lymph % (Auto) 5.8 L [place] % (Auto) 8.6 H Eos % (Auto) 4.9 H Baso % (Auto) 0.8 Lymph # (Auto) 0.45 L [place] # (Auto) 0.7 H Eos # (Auto) 0.4 H Baso # (Auto) 0.1 Abs Immat Gran (auto) 0.07 H Absolute Neuts (auto) 6.2 Absolute Nucleated RBC 0.000 Nucleated RBC % 0.0 Sodium 134 L Potassium 3.2 L Chloride 92 L Carbon Dioxide 33 H Anion Gap 9 BUN 44 H Creatinine 2.10 H Estim Creat Clear Calc 45 Estimated GFR 31 L Glucose 118 H Calcium 9.1 Magnesium 2.1 Total Bilirubin 0.9 AST 15 L ALT 7 Alkaline Phosphatase 45 Total Protein 7.0 Albumin 4.0 Quality VTE Prophylaxis VTE prophylaxis: mechanical ordered
[2024-01-19 10:11] VITALS: PULSE 97
[2024-01-19] MEDS: SPIRONOLACTONE 25 MG TABLET PO (10:11)
[2024-01-19] MEDS: METOPROLOL TARTRATE 50 MG TAB PO ×2 (10:11→20:11)
[2024-01-19] MEDS: allopurinoL 100 MG TABLET PO (10:12)
[2024-01-19] MEDS: DOCUSATE SODIUM 100 MG CAPSULE PO ×2 (10:12→20:11)
[2024-01-19] MEDS: BUMETANIDE 1 MG TABLET PO ×3 (10:12→17:00)
[2024-01-19] MEDS: EUCERIN CREAM 120 GM JAR 1 APPLIC TOPICAL ×2 (10:13→20:11)
[2024-01-19] MEDS: POTASSIUM CHLORIDE 20 MEQ PACKET (FOR LIQUID) 40 MEQ PO ×2 (10:13→17:00)
[2024-01-19] MEDS: LORATADINE 10 MG TABLET PO (10:13)
[2024-01-19] MEDS: minoxidiL 10 MG TABLET PO (10:13)
[2024-01-19] MEDS: TAMSULOSIN HCL 0.4 MG CAPSULE PO (10:13)
[2024-01-19] MEDS: SENNA/DOCUSATE SODIUM TABLET 1 TAB PO (13:39)
[2024-01-19] MEDS: polyethylene glycoL 3350 17 GM POWD.PACK PO (13:39)
[2024-01-19 14:17] VITALS: BP 139/60; PULSE 90; RESP 18; TEMP 36.5; O2SAT 97
[2024-01-19 22:00] VITALS: BP 110/55; PULSE 97; RESP 18; TEMP 36.8; O2SAT 97
[2024-01-20 06:00] VITALS: BP 138/74; PULSE 88; RESP 18; TEMP 36.2; O2SAT 97
[2024-01-20 06:01] LABS: Basophils Absolute Auto 0.1 K/mm3 (0.0-0.1); Basophils Percent Auto 0.9 % (0.2-1.2); Eosinophils Absolute Auto 0.5 K/mm3 (0-0.3); Eosinophils Percent Auto 5.3 % (0-4.4); Hematocrit 32.7 % (42.0-52.0); Immature Granulocyte Absolute 0.08 K/mm3 (0.00-0.031); Immature Granulocyte Percent A 0.9 % (0-0.5); Lymphocytes Absolute Auto 0.57 K/mm3 (0.9-3.2); Lymphocytes Percent Auto 6.2 % (18.3-44.2); Mean Corpuscular HGB Conc 30.6 g/dl (32-36); Mean Corpuscular Hemoglobin 28.8 pg (26-34); Mean Corpuscular Volume 94.2 fl (80-100); Mean Platelet Volume 10.2 fl (7.4-10.4); Monocytes Absolute Auto 0.9 K/mm3 (0.1-0.6); Monocytes Percent Auto 9.3 % (2.6-8.5); Neutrophils Absolute Auto 7.1 K/mm3 (1.3-6.7); Neutrophils Percent Auto 77.4 % (45.5-73.1); Platelet Count Result 301 k/mm3 (150-375); Red Blood Count 3.47 M/mm3 (4.6-6.20); Red Cell Distribution Width 15.1 % (11.5-14.5); White Blood Count 9.2 K/mm3 (4.5-10.0)
[2024-01-20] MEDS: GABAPENTIN 300 MG CAPSULE PO ×2 (06:03→14:02)
[2024-01-20] MEDS: LEVOTHYROXINE SODIUM 100 MCG TABLET 200 MCG PO (06:03)
[2024-01-20 06:13] LABS: Alanine Aminotransferase 7 U/L (6-50); Albumin Level 3.9 g/dL (3.5-5.1); Alkaline Phosphatase 44 U/L (38-126); Anion Gap 8 mmol/L (4-12); Aspartate Amino Transferase 15 U/L (17-59); Bilirubin,Total 0.6 mg/dL (0.2-1.3); Blood Urea Nitrogen 47 mg/dL (9-20); Calcium 9.6 mg/dL (8.4-10.2); Carbon Dioxide 33 mmol/L (22-30); Chloride 93 mmol/L (98-107); Estimated CRCL calculation 47 ml/min; Estimated Glomerular Filt Rate 33; Glucose 112 mg/dL (65-110); Potassium 3.6 mmol/L (3.4-5.0); Sodium 134 mmol/L (137-145)
[2024-01-20 08:00] VITALS: PULSE 86; RESP 18; O2SAT 98
[2024-01-20] MEDS: TAMSULOSIN HCL 0.4 MG CAPSULE PO (10:16)
[2024-01-20] MEDS: SPIRONOLACTONE 25 MG TABLET PO (10:16)
[2024-01-20] MEDS: acetaZOLAMIDE TAB 250 MG TABLET PO (10:16)
[2024-01-20] MEDS: DOCUSATE SODIUM 100 MG CAPSULE PO (10:16)
[2024-01-20] MEDS: POTASSIUM CHLORIDE 20 MEQ PACKET (FOR LIQUID) 40 MEQ PO (10:16)
[2024-01-20 10:17] VITALS: PULSE 95
[2024-01-20] MEDS: BUMETANIDE 1 MG TABLET PO ×3 (10:17→17:32)
[2024-01-20] MEDS: allopurinoL 100 MG TABLET PO (10:17)
[2024-01-20] MEDS: LORATADINE 10 MG TABLET PO (10:17)
[2024-01-20] MEDS: METOPROLOL TARTRATE 50 MG TAB PO (10:17)
[2024-01-20] MEDS: APIXABAN 5 MG TABLET PO (10:21)
[2024-01-20] MEDS: minoxidiL 10 MG TABLET PO (10:21)
[2024-01-20] MEDS: EUCERIN CREAM 120 GM JAR 1 APPLIC TOPICAL (10:22)
[2024-01-20] MEDS: calcitrioL 0.25 MCG CAPSULE PO (10:29)
[2024-01-20 14:00] VITALS: BP 130/54; PULSE 86; RESP 18; TEMP 36.4; O2SAT 98
--- NOTE | 2024-01-20 14:19 | PM.DS ---
DS: Admitting Diagnosis Discharge Date 01/19 Admitting Diagnosis right foot wound DS: Discharge Diagnosis Discharge Diagnosis (1) Wound of right foot: Code(s): S91.301A - Unspecified open wound, right foot, initial encounter Status: Acute Assessment and Plan: Chronic, worsening right foot wound with venous and arterial insufficiency. Patient has not followed up with vascular surgery as he has not been able to establish care in between hospitalization and rehab stays. He has not been able to independently change his dressings. WBC 9.8 on admission, afebrile Wound culture from previous showed visits grew VRE, pseudomonas He received IV vancomycin in the ED. At this time do not feel strongly about IV antibiotics given normal WBC and afebrile. Procal normal, lactic normal. Last admission he had arterial duplex which shows moderate arterial insufficiency. I called and spoke with Dr Barnes, vascular surgeon at [facility] who has accepted him for transport for vascular intervention. Bed placement pending. Continue with local wound care daily and PRN for soiled dressings. Holding Eliquis for anticipation of vascular surgery, SCD's ordered White count 9.0 today. We have continued to hold antibiotics. Wound with serous drainage and lack of odor. 01/19: I completed his dressing change today. His wound is looking better than initially on admission. Nursing has been able to debride most of the dark, brown tissue. Wound bed appears beefy red without odor. Today he tells me he had a discussion with his daughter and neither she nor his grandson will be able to perform daily wound care when home health is not available. He is agreeable to go to [facility] today. I personally contacted [facility] vascular surgery and they are accepting new patients. I will be faxing his medical record from [facility] for the last few months showing the clinical need for a vascular surgeon. I also reached out to his PCPs office, Dr Paulson, and requested a formal referral be faxed to [facility] vascular at fax # [phone]. The vascular office states they have multiple openings in the next few weeks in the may be able to coordinate with his senior director insight visit in January. (2) Lymphedema of both lower extremities: Code(s): I89.0 - Lymphedema, not elsewhere classified Status: Acute Assessment and Plan: Stable, encourage foot elevation (3) Chronic congestive heart failure: Qualifiers: Heart failure type: combined systolic and diastolic Qualified Code(s): I50.42 - Chronic combined systolic (congestive) and diastolic (congestive) heart failure Code(s): I50.9 - Heart failure, unspecified Status: Chronic Assessment and Plan: Appears euvolemic. Stable. Continue home medications. Sodium and K+ downtrending. Diamox is usually 4 x per week per patient. Holding daily dosing. Replete K+ with 40 mEq now. Add on magnesium. (4) Chronic kidney disease: Code(s): N18.9 - Chronic kidney disease, unspecified Status: Acute Assessment and Plan: Cr 2.20 which is around his baseline. Renal function tends to run 1.5-2.2 mg/dl avoid nephrotoxic medications renally dose medications (5) Obstructive sleep apnea: Code(s): G47.33 - Obstructive sleep apnea (adult) (pediatric) Status: Chronic Assessment and Plan: CPAP home settings ordered DS: Summary Hospital Course Reason for hospitalization: chronic right foot wound, JENA on CKD Hospital Course: This is a pleasant 73-year-old male with hypertension, dyslipidemia, heart failure with preserved ejection fraction, atrial fibrillation on chronic anticoagulation, hypothyroidism, sleep apnea, GERD, chronic kidney disease, and chronic lymphedema of the lower extremities who presented to the emergency department via EMS for evaluation of a worsening right foot wound. The patient provides the following history. He has had this wound for extended periods of time and has been followed by the wound clinic. He was last hospitalized a couple of months ago with an infection of that fluids and he was discharged to rehab where the wound improved significantly. He is now back at home and despite having home health come in to help care for the wound, it has gotten particularly bad and it is to the point where he has once again having pretty severe pain in the dorsum of the right foot and it has been oozing fluid. He mentions having sweats the last couple of nights but he has not had a fever or chills. Appetite has been stable and he denies nausea, vomiting, and diarrhea. He has not noticed extension of the chronic redness of the foot to other parts of the leg. Of note, bilateral lower extremity arterial Dopplers taken during his last hospitalization showed evidence of moderate vascular disease however he has not yet had appointment with a vascular surgeon. Wound nurse came to evaluate the patient in the ED reports that it looks much worse though she is not convinced he has an acute underlying bacterial infection. Recommendations were given and the patient is being admitted overnight for close monitoring on further consideration. The patient was admitted to the hospital and antibiotics were not continued because it was felt by Wound Care and myself that his wound did not appear acutely infected. His white blood cell count was normal, lactic acid normal, procalcitonin normal, and afebrile. His wound has progressively gotten worse due to lack of compliance with lymphedema treatment, wound care, and lack of vascular surgery follow-up. While he was hospitalized I attempted to get him transferred to a higher level of care for an inpatient vascular consult. I spoke with Dr. Barnes at [facility] who accepted him for transfer but given lack of bed availability he was never able to be transferred. I then had a rebecca conversation with him regarding his lack of compliance and follow-up. He does not feel that his daughter or his grandson are able to help him complete the wound care and he is agreeable to go to [facility]. He alone cannot complete dressing changes independently. I called [facility] vascular surgery office ([phone]) the office of Dr. Yomi Manuel and requested a referral. The office is accepting new patients and they have multiple openings in the next few weeks. The office requested a formal referral from his primary care's office as well as hospitalization records to show the need for vascular surgery referral. I then contacted Dr. Paulson's office and requested a referral for vascular surgery be sent to [phone]. The patient will require transportation via [employer] service to his appointments. This is the ride service he currently uses. The [facility] vascular office is going to try and coordinate same day appointment with his senior director insight in January. While the patient was here he did have a minimal increase of his creatinine of 2.2 from his baseline of 1.7. His Diamox (acetazolamide 250 mg daily) was held and his creatinine improved. He also did not receive his his metolazone 5 mg four times a week (Saturday, Saturday, Saturday, Saturday). I spoke with Dr Bender, nephrology and discussed holding versus resuming his Diamox at discharge. Diamox was initially ordered given his persistent metabolic alkalosis with elevated CO2 from aggressive use of loop diuretics. As his creatinine is improving and his alkalosis is improving without the Diamox it would be okay to hold for now. Will plan to repeat labs in 3 days. Overall he did well and was discharged in stable condition. Time Spent with Patient Time attestation: Total time spent providing and/or coordinating discharge services: 90 Exam Narrative: General: appears comfortable, in no acute distress Respiratory: breathing is unlabored with even chest rise/fall, lungs are clear without wheezing, rhonchi, and crackles Cardiovascular: Rate and rhythm regular, normal s1s2, no murmur Abdomen: Soft, round, non-tender, active bowel sounds Extremities: No cyanosis, edema, clubbing. Pulses 2/2 Neuro: A&O x 4 Skin: Warm, dry, intact. Chronic wound on the dorsum of the right foot extending into the toes with open wound bed with red wound base DS: Data Data Completed and Pending Labs on day of discharge: Labs from last 24 hours 01/20/24 05:28 WBC 9.2 RBC 3.47 L Hgb 10.0 L Hct 32.7 L MCV 94.2 MCH 28.8 MCHC 30.6 L RDW 15.1 H Plt Count 301 MPV 10.2 Immature Gran % (Auto) 0.9 H Neut % (Auto) 77.4 H Lymph % (Auto) 6.2 L Burt % (Auto) 9.3 H Eos % (Auto) 5.3 H Baso % (Auto) 0.9 Lymph # (Auto) 0.57 L Burt # (Auto) 0.9 H Eos # (Auto) 0.5 H Baso # (Auto) 0.1 Abs Immat Gran (auto) 0.08 H Absolute Neuts (auto) 7.1 H Absolute Nucleated RBC 0.000 Nucleated RBC % 0.0 Sodium 134 L Potassium 3.6 Chloride 93 L Carbon Dioxide 33 H Anion Gap 8 BUN 47 H Creatinine 2.00 H Estim Creat Clear Calc 47 Estimated GFR 33 L Glucose 112 H Calcium 9.6 Total Bilirubin 0.6 AST 15 L ALT 7 Alkaline Phosphatase 44 Total Protein 7.0 Albumin 3.9 Preliminary micro results at discharge 01/15/24 14:31 Blood Culture - Preliminary Blood 01/15/24 14:31 Blood Culture - Preliminary Blood Discharge Plan Discharge Attending physician on discharge: Rojas,Changqing Consulting providers: Eboni Douglas Discharging Clinician: Eboni Douglas Anticipated Discharge Date/Time: 01/20/24 15:12 Patient Disposition: SNF Activity: may shower Diet: heart healthy Discharge Instructions: Wound care to right foot: Apply antifungal powder to dorsal foot, between toes, and plantar foot. Piece of Hydrofera blue to slough area on the dorsal foot by toes. Piece of transfer foam over Hydrofera blue and dorsal foot. ABD pads to dorsal and plantar foot. wrap all with 4 inch Kerlex roll gauze. Apply antifungal powder and change Hydrofera blue and transfer foam daily. Change ABD pads and kerlex gauze every 12 hours. Foot to be elevated. We would like you to have repeat labs in 3 days to assess your renal function and determine if your Diamox needs to be resumed. I have contacted Dr. Paulson's office and they are sending a referral to vascular surgeon Dr Yomi Manuel with [facility]. We have also faxed hospital records from this year to the vascular office. They will call you with an appointment. Please continue to elevate your legs and wrap with LIBERTY wraps to promote venous return. Please keep your regularly scheduled appointments with your senior director insight and chair car attendant. Please contact your PCP to schedule a follow up appointment given this hospitalization. If you return to the Emergency room at [facility] please make sure the doctor or [facility] caring for you knows that you should be transferred for VASCULAR CONSULT Patient Instructions: Peripheral Vascular Disease (DC), Stasis Dermatitis (DC), Leg Edema (ED), Venous Insufficiency (DC) Stand Alone Forms: General Discharge Information Follow-up/Referrals: Kip Malcolm MD [Primary Care Provider] - Discharge Medications: New hydrocodone-acetaminophen 5-325 mg Tablet 1 tablet PO Q6H PRN (Reason: Pain Rated 4-6) Qty: 10 0RF Continued loratadine [Claritin] 10 mg tablet 10 mg PO DAILY fluticasone propionate [Flonase Allergy Relief] 50 mcg/actuation spray,suspension 1 spray intranasal DAILY PRN (Reason: Congestion) Rx Instructions: administer into each nostril Eliquis 5 mg tablet 5 mg PO Q12HR Qty: 180 1RF Patient Comments: metoprolol tartrate 50 mg tablet 50 mg PO Q12HR Qty: 180 1RF metolazone 2.5 mg tablet 5 mg PO 4XW Qty: 30 6RF Rx Instructions: Take on Saturday, Wednesdays, Fridays, and Saturdays minoxidil 10 mg tablet 10 mg PO DAILY calcitriol 0.25 mcg capsule 0.25 mcg PO 3XW Qty: 36 3RF Rx Instructions: take on Saturday, Saturday, Fridays Minerin Creme Cream 1 applic topical BID Qty: 113 0RF Rx Instructions: Apply to jackie lower legs polyethylene glycol 3350 [Miralax] 17 gram/dose Powder 17 g PO DAILY PRN (Reason: Constipation) gabapentin 300 mg capsule 300 mg PO TID sennosides-docusate sodium [Senokot-S] 8.6-50 mg Tablet 1 tab-cap PO HS PRN (Reason: CONSTIPATION) Qty: 1 0RF bumetanide 1 mg tablet 1 mg PO TID acetaminophen 325 mg tablet 500 mg PO Q4H PRN (Reason: Mild Pain (1-3) Or Fever) allopurinol 100 mg tablet 100 mg PO DAILY@0800 Qty: 30 0RF Rx Instructions: NEEDS APPOINTMENT FOR FURTHER REFILLS docusate sodium 100 mg Capsule 100 mg PO Q12H Qty: 30 0RF levothyroxine 200 mcg tablet 200 mcg PO DAILY spironolactone 25 mg tablet 25 mg PO DAILY Qty: 30 0RF tamsulosin 0.4 mg capsule 0.4 mg PO QAM Qty: 90 3RF Held acetazolamide 250 mg tablet 250 mg PO DAILY Hold Instructions: Resume on 01/24/24. Hold until after Labs completed on Saturday and facility provider resumes Other Ambulatory Orders: Comprehensive Metabolic Panel (Routine) Timeframe: 3 Days Location: Determined by Patient Ordered By: Eboni Douglas Magnesium (Routine) Timeframe: 3 Days Location: Determined by Patient Ordered By: Eboni Douglas Date of admission: 01/16/24 11:06 Primary Care Provider: Kip Malcolm Admitting Provider: Deb Escalante Attending physician on admission: Eboni Douglas Condition: Stable Quality VTE Prophylaxis VTE prophylaxis: mechanical ordered Hospitalist MIPS Heart Failure (Exclusion) Patient has history of Heart Transplant or Left Ventricular Assistive Device?: No IF YES, STOP HERE Heart Failure (Qualifier) Patient has current or prior documentation of LVEF less than or equal to 40%, or mod/servere depressed LVSF?: No IF NO, STOP HERE
[2024-01-20 15:45] LABS: SARS-CoV-2 RNA PCR Negative (Negative)
[2024-01-20] MEDS: HYDROcodone/acetaminophen (*CRX) 5-325 MG TABLET 1 TAB PO (17:34)
== END 2024-01-20 19:04 | DRG 300 ==
LOC: ANHED 15:47 → ANH3MED 16:52
PROVIDERS: Physician Assistant; Admitting Provider Family Medicine; Emergency Provider Emergency Medicine; PCP Family Medicine; Visit Provider Nurse Practitioner Acute Care
DX: I87.2 Venous insufficiency (chronic) (peripheral) (principal); I13.0 Hypertensive heart and chronic kidney disease with heart failure and stage 1 through stage 4 chronic kidney disease, or unspecified chronic kidney disease; I48.20 Chronic atrial fibrillation, unspecified; N17.9 Acute kidney failure, unspecified; I50.42 Chronic combined systolic (congestive) and diastolic (congestive) heart failure; L97.519 Non-pressure chronic ulcer of other part of right foot with unspecified severity; N18.9 Chronic kidney disease, unspecified; I87.8 Other specified disorders of veins; I73.9 Peripheral vascular disease, unspecified; I89.0 Lymphedema, not elsewhere classified; E78.5 Hyperlipidemia, unspecified; E03.9 Hypothyroidism, unspecified; K21.9 Gastro-esophageal reflux disease without esophagitis; L71.8 Other rosacea; M10.9 Gout, unspecified; G62.9 Polyneuropathy, unspecified; M54.50 Low back pain, unspecified; G89.29 Other chronic pain; G47.33 Obstructive sleep apnea (adult) (pediatric); Z20.822 Contact with and (suspected) exposure to COVID-19; Z87.891 Personal history of nicotine dependence; Z79.01 Long term (current) use of anticoagulants; Z99.3 Dependence on wheelchair; Z91.199 Patient's noncompliance with other medical treatment and regimen due to unspecified reason
CPT/HCPCS: 36415; 73620; 80048; 80053; 83605; 83735; 84145; 85025; 85027; 85610; 85730; 86140; 87040; 87635; 96361; 96365; 96375; 96376; 99285; A9270; G0378; J1171; J2270; J2405; J3370; J7030

== ENCOUNTER 2024-02-21 14:39 | Outpatient (CLI) | payer MEDICARE, SELFPAY ==
[2024-02-21 19:03] LABS: Albumin Level 4.4 g/dL (3.5-5.1); Anion Gap 8 mmol/L (4-12); Blood Urea Nitrogen 41 mg/dL (9-20); Calcium 9.1 mg/dL (8.4-10.2); Carbon Dioxide 32 mmol/L (22-30); Chloride 98 mmol/L (98-107); Estimated Glomerular Filt Rate 28; Glucose 111 mg/dL (65-110); Potassium 4.5 mmol/L (3.4-5.0); Sodium 138 mmol/L (137-145)
[2024-02-21 19:11] LABS: Parathyroid Intact 130.3 pg/mL (14.5-75.2)
[2024-02-21 19:20] LABS: Creatinine Urine 66.1 mg/dL; Total Protein Urine Random 6 mg/dL; Ur Ttl Prot Creatinine Ratio 0.09 mg/mg (0-0.20)
== END 2024-02-21 14:40 | disposition home or self-care (01) ==
LOC: ANHGOSHLAB 14:41
PROVIDERS: PCP Nurse Practitioner Family; Visit Provider Internal Medicine Nephrology
DX: I12.9 Hypertensive chronic kidney disease with stage 1 through stage 4 chronic kidney disease, or unspecified chronic kidney disease (principal); N18.32 Chronic kidney disease, stage 3b; N25.81 Secondary hyperparathyroidism of renal origin
CPT/HCPCS: 36415; 80069; 82570; 83970; 84156

== ENCOUNTER 2024-03-04 19:29 | Inpatient (IN) | payer MEDICARE, SELFPAY ==
--- NOTE | ~2024-03-04 | MR_ITS ---
EXAMINATION: MR ankle RT wo/w con DATE: 03/06/2024 12:20 INDICATION: Right ankle wound. TECHNIQUE: Magnetic resonance imaging (MRI) of the right ankle was performed without and with 20 mL M ultiHance intravenous contrast. COMPARISON: Right foot radiographs 03/04/2024 FINDINGS: Alignment is normal. No fracture. No bone marrow edema to suggest osteomyelitis. The talar dome is no rmal. 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 There is severe fatty atrophy of the musculature. The re is thickening of the plantar fascia, consistent with fasciitis. There are enthesophytes at the pos terior and plantar aspects of calcaneal tuberosity. IMPRESSION: 1. No evidence of osteomyelitis. Reviewed, dictated and finalized at location A. PLASTIC BULLET MAKER
--- NOTE | ~2024-03-04 | XR_ITS ---
Right foot Technique: AP, oblique, and lateral views were obtained. Clinical History: Wound Findings: No acute fracture or dislocation is seen. Osseous alignment is anatomic. Scattered mild deg enerative changes are present. Prominent soft tissue swelling noted dorsally at the forefoot. Impression: No definite radiographic evidence for osteomyelitis. Soft tissue swelling of the forefoot, especially dorsally. Reviewed, dictated and finalized at [facility]. NOMY RESEARCH MANAGER Impression: No definite radiographic evidence for osteomyelitis. Soft tissue swelling of the forefoot, especially dorsally.
--- NOTE | ~2024-03-04 | MR_ITS ---
MRI of the right foot CLINICAL HISTORY: Wound, osteomyelitis TECHNIQUE: Axial T1-weighted, T2 fat-sat, and T1 fat-sat images, coronal T1-weighted and T2 fat-sat i mages, and sagittal T2 fat-sat images were acquired. Following intravenous administration of 20 cc Mu ltiHance gadolinium, T1-weighted fat-sat imaging was performed in the axial, coronal, and sagittal pl anes. FINDINGS: Bone marrow signals are intact. No hypointense T1 marrow signal to suggest osteomyelitis. N o significant bone marrow edema. No fracture. There are mild degenerative changes throughout the toes . No significant joint effusion identified. There is marked, diffuse subcutaneous soft tissue edema throughout the forefoot. No distinct abscess identified. Visually plantar fascia intact. No intermetatarsal bursitis or Woo's neuroma clearly e vident. Visualized flexor and extensor tendons are intact. Probable mild edema of the intrinsic muscu lature of the foot. IMPRESSION: No evidence for osteitis or abscess. Prominent, diffuse subcutaneous soft tissue edema. Probable mild nonspecific myositis. Mild degenerative changes in the toes. Reviewed, dictated and finalized at [facility]. P HOME WORKER
--- NOTE | ~2024-03-04 | US_ITS ---
EXAMINATION: US arterial duplex LE RT DATE: 03/12/2024 20:34 INDICATION: Poorly healing right lower extremity wound. TECHNIQUE: Multiple grayscale and Doppler ultrasound images of the right lower limb were obtained. COMPARISON: None FINDINGS: The systolic velocity is 91 cm/s in common femoral artery, 48 cm/s in profunda femoral kasia ry, 80 cm/s in proximal superficial femoral artery, 68 cm/s in mid superficial femoral artery, 46 cm/ s in distal superficial femoral artery, and 20 cm/s in popliteal artery. The lower leg arteries are n ot visualized. IMPRESSION: 1. Increased velocity gradient between superficial femoral artery and popliteal artery, consistent wi th at least moderate stenosis. 2. Lower leg arteries not visualized. Reviewed, dictated and finalized at location A. TENTER OPERATOR IMPRESSION: 1. Increased velocity gradient between superficial femoral artery and popliteal artery, consistent with at least moderate stenosis. 2. Lower leg arteries not visualized.
[2024-03-04 19:34] VITALS: BP 117/65; PULSE 107; RESP 17; TEMP 36.8; O2SAT 99
[2024-03-04 23:35] VITALS: PULSE 99; RESP 14; O2SAT 100
--- NOTE | 2024-03-04 23:39 | ED.GENADULT ---
HPI - General Adult General Chief complaint: Wound/Laceration Stated complaint: wound on right foot Time Seen by Provider: 03/04/24 23:22 History of Present Illness HPI narrative: Patient is a 74-year-old gentleman who presents emergency department chief complaint of wounds to the right lower extremity the patient reports he has history of venous stasis ulcers and reports that he has seen vascular surgery at [facility] the patient states that they did not Plain any vascular interventions at this time is postop follow-up within the next 1-2 months the patient states that over the last several days he has had increasing drainage out of his foot and has noticed that his foot has become red and exquisitely tender. Related Data Home Medications Medication Instructions Recorded Confirmed loratadine 10 mg tablet (Claritin) 10 mg PO DAILY 07/12/20 02/26/24 polyethylene glycol 3350 17 17 g PO DAILY PRN Constipation 06/02/21 02/26/24 gram/dose oral powder (Miralax) acetazolamide 250 mg tablet 250 mg PO DAILY 11/19/22 02/26/24 fluticasone propionate 50 1 spray intranasal DAILY PRN 11/19/22 02/26/24 mcg/actuation nasal Congestion spray,suspension (Flonase Allergy Relief) minoxidil 10 mg tablet 10 mg PO DAILY 11/19/22 02/26/24 levothyroxine 200 mcg tablet 200 mcg PO DAILY 08/30/23 02/26/24 acetaminophen 325 mg tablet 500 mg PO Q4H PRN Mild Pain (1-3) 01/15/24 02/26/24 Or Fever bumetanide 1 mg tablet 1 mg PO TID 01/15/24 02/26/24 Allergies Allergy/AdvReac Type Severity Reaction Status Date / Time oxycodone [From OxyContin] Allergy Mild Nausea Verified 02/26/24 11:05 Sulfa (Sulfonamide Allergy Mild Rash Verified 02/26/24 11:05 Antibiotics) Penicillins Allergy Unknown SWELLING Verified 02/26/24 11:05 codeine AdvReac Mild N/V Verified 02/26/24 11:05 hydrocodone AdvReac Mild N/V Verified 02/26/24 11:05 tramadol AdvReac Mild Nausea Verified 02/26/24 11:05 Review of Systems Review of Systems: A 10 system review of systems was completed on the patient and is negative except for what is stated in the HPI. Nursing and ancillary documentation was reviewed. [facility] Past Medical History Medical History Atrial fibrillation Chronic acquired lymphedema Chronic anemia Chronic congestive heart failure Echocardiogram in May 2021 was technically difficult and showed normal LV systolic function with an EF of 60 to 65%, severely enlarged RV chamber with moderate to severely reduced RV systolic function, severe biatrial enlargement, and moderate pulmonary hypertension. Chronic kidney disease Chronic low back pain Chronic venous insufficiency Dyslipidemia Environmental allergies Essential (primary) hypertension GERD without esophagitis Gout Hypothyroidism Lymphedema of both lower extremities Morbid obesity with body mass index (BMI) of 40.0 or higher Neuropathic pain Obstructive sleep apnea Ocular rosacea Peripheral polyneuropathy Peripheral vascular disease Rosacea Sepsis Surgical History Surgical History H/O eye surgery (~2005) [id number] [facility] History of carpal tunnel release History of cholecystectomy (2008) History of discectomy (2012) History of foot surgery Left Foot History of rotator cuff surgery Bilateral. History of thoracic surgery Pericardial effusion s/p pericardial window thought secondary to minoxidil, in 2010 at [facility]. Family History Family History Father Cardiovascular disease Grandparent Cancer Mother COPD (chronic obstructive pulmonary disease) Social History Social History Social History: Surrogate medical decision maker: Shyla Hurst, daughter. Code status: Full code. Smoking packs per day: 2 Smoking cigarettes per day: 40.0 Years smoked: 20 Smoking pack-years: 40.00 Smoking status: Former smoker Tobacco type: cigarettes Second hand tobacco smoke exposure: No Additional smoking assessment comments: 1979 Alcohol intake: never Alcohol use details: One beer daily. Substance use: never Substance use type: does not use Do You Feel Safe in your Home?: Yes Lack of Transportation: No Lack of Food: Never True Current Housing: I Have Housing Concerned About Future Housing: No Difficulty Paying Gas/Electric Bills: No Difficulty Paying for Meds: No Currently Unemployed: No Education: High School Diploma/GED Difficulty w/ Childcare or Family Care: No Living arrangements: alone Additional living arrangements comments: Lives in own home [place] [address]. Uses a motorized scooter and transfers with slide board. Occupation/Education: retired Additional occupation/education comments: Retired. 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 Spiritual care concerns: No Exam Narrative: GENERAL: Well-appearing, well-nourished, and in no acute distress. HEAD: Normocephalic, atraumatic. EYES: PERRLA and EOMI. ENT: Nares clear, no rhinorrhea or epistaxis. Mucous membranes moist. NECK: Supple. CHEST: Clear to auscultation. No respiratory distress. HEART: Regular rate and rhythm. No murmur heard. Normal peripheral pulses. ABDOMEN: Soft, nontender, nondistended, normal active bowel sounds. EXTREMITIES: Normal range of motion. No edema. SKIN: Warm, dry, right foot is red being serosanguineous fluid. There are multiple ulcerations present to the foot. NEURO: No focal deficits. Alert and oriented x3. PSYCH: Normal mood and affect. Course Vital Signs Vital signs: Vital Signs Temperature 36.8 C 03/04/24 19:34 Pulse Rate 107 H 03/04/24 19:34 Respiratory Rate 17 03/04/24 19:34 Blood Pressure 117/65 03/04/24 19:34 Pulse Oximetry 99 03/04/24 19:34 Temperature 36.8 C 03/04/24 19:34 Pulse Rate 92 03/05/24 00:30 Respiratory Rate 17 03/05/24 00:30 Blood Pressure 104/58 L 03/05/24 00:30 Pulse Oximetry 97 03/05/24 00:30 Medical Decision Making [facility] Narrative Medical decision making narrative: Differential diagnosis includes cellulitis, osteomyelitis, The patient has been recently seen by vascular surgery and is scheduled for follow-up at his most recent arterial ultrasounds they did not recommend any kind of surgical intervention. The patient's wounds do appear to be infected at this time the patient was empirically started on vancomycin as he has elevations in his CRP and sed rate and white blood cell count. The patient is also had malodorous drainage from the site Vital Signs Vital Signs: Vital Signs Temperature 36.8 C 03/04/24 19:34 Pulse Rate 107 H 03/04/24 19:34 Respiratory Rate 17 03/04/24 19:34 Blood Pressure 117/65 03/04/24 19:34 Pulse Oximetry 99 03/04/24 19:34 Temperature 36.8 C 03/04/24 19:34 Pulse Rate 92 03/05/24 00:30 Respiratory Rate 17 03/05/24 00:30 Blood Pressure 104/58 L 03/05/24 00:30 Pulse Oximetry 97 03/05/24 00:30 Lab Data 03/05/24 00:12 03/05/24 00:12 Labs: Lab Results 03/05/24 03/05/24 Range/Units 00:12 00:48 WBC 12.9 H (4.5-10.0) K/mm3 RBC 3.86 L (4.6-6.20) M/mm3 Hgb 10.8 L (14.0-18.0) g/dL Hct 34.8 L (42.0-52.0) % MCV 90.2 (80-100) fl MCH 28.0 (26-34) pg MCHC 31.0 L (32-36) g/dl RDW 14.5 (11.5-14.5) % Plt Count 439 H (150-375) k/mm3 MPV 9.7 (7.4-10.4) fl Immature Gran % (Auto) 1.8 H (0-0.5) % Neut % (Auto) 83.2 H (45.5-73.1) % Lymph % (Auto) 5.3 L (18.3-44.2) % Alexander % (Auto) 6.7 (2.6-8.5) % Eos % (Auto) 2.5 (0-4.4) % Baso % (Auto) 0.5 (0.2-1.2) % Lymph # (Auto) 0.69 L (0.9-3.2) K/mm3 Alexander # (Auto) 0.9 H (0.1-0.6) K/mm3 Eos # (Auto) 0.3 (0-0.3) K/mm3 Baso # (Auto) 0.1 (0.0-0.1) K/mm3 Abs Immat Gran (auto) 0.23 H (0.00-0.031) K/mm3 Absolute Neuts (auto) 10.7 H (1.3-6.7) K/mm3 Absolute Nucleated RBC 0.000 (0.0-0.012) K/mm3 Nucleated RBC % 0.0 (0.0-0.2) % ESR 95 H (0-20) mm/hr PT 18.3 H (11.1-14.7) Seconds INR 1.5 APTT 39.5 H (22.3-36.8) Seconds Sodium 135 L (137-145) mmol/L Potassium 4.0 (3.4-5.0) mmol/L Chloride 97 L (98-107) mmol/L Carbon Dioxide 29 (22-30) mmol/L Anion Gap 9 (4-12) mmol/L BUN 45 H (9-20) mg/dL Creatinine 2.60 H (0.7-1.3) mg/dL Estim Creat Clear Calc 34 ml/min Estimated GFR 24 L (59 - ) Glucose 119 H (65-110) mg/dL Calcium 9.3 (8.4-10.2) mg/dL Magnesium 2.3 (1.6-2.3) mg/dL Total Bilirubin 0.8 (0.2-1.3) mg/dL AST 29 (17-59) U/L ALT 15 (6-50) U/L Alkaline Phosphatase 60 (38-126) U/L C-Reactive Protein 15.8 H (<1.0) mg/dL Total Protein 8.0 (6.3-8.2) g/dL Albumin 4.6 (3.5-5.1) g/dL Procalcitonin Pending Urine Color Pending Urine Appearance Pending Urine pH Pending Ur Specific [place] Pending Urine Protein Pending Urine Glucose (UA) Pending Urine Ketones Pending Ur Blood (Man) Pending Urine Nitrate Pending Urine Bilirubin Pending Urine Urobilinogen Pending Leukocyte Esterase Rfl Pending Discharge Plan Discharge Clinical Impression: Chronic venous insufficiency, Cellulitis, Skin ulcer of right foot Patient Disposition: Still a Patient Condition: Stable Prescriptions: No Action loratadine [Claritin] 10 mg tablet 10 mg PO DAILY fluticasone propionate [Flonase Allergy Relief] 50 mcg/actuation spray,suspension 1 spray intranasal DAILY PRN (Reason: Congestion) Rx Instructions: administer into each nostril Eliquis 5 mg tablet 5 mg PO Q12HR Qty: 180 1RF Patient Comments: metoprolol tartrate 50 mg tablet 50 mg PO Q12HR Qty: 180 1RF metolazone 2.5 mg tablet 5 mg PO 4XW Qty: 30 6RF Rx Instructions: Take on Saturday, Wednesdays, Fridays, and Saturdays acetazolamide 250 mg tablet 250 mg PO DAILY Hold Instructions: Resume on 01/24/24. Hold until after Labs completed on Saturday and facility provider resumes minoxidil 10 mg tablet 10 mg PO DAILY calcitriol 0.25 mcg capsule 0.25 mcg PO 3XW Qty: 36 3RF Rx Instructions: take on Saturday, Saturday, Fridays Minerin Creme Cream 1 applic topical BID Qty: 113 0RF Rx Instructions: Apply to jackie lower legs polyethylene glycol 3350 [Miralax] 17 gram/dose Powder 17 g PO DAILY PRN (Reason: Constipation) sennosides-docusate sodium [Senokot-S] 8.6-50 mg Tablet 1 tab-cap PO HS PRN (Reason: CONSTIPATION) Qty: 1 0RF bumetanide 1 mg tablet 1 mg PO TID acetaminophen 325 mg tablet 500 mg PO Q4H PRN (Reason: Mild Pain (1-3) Or Fever) allopurinol 100 mg tablet 100 mg PO DAILY@0800 Qty: 30 0RF Rx Instructions: NEEDS APPOINTMENT FOR FURTHER REFILLS nystatin 100,000 unit/gram powder 1 applic topical BID Qty: 60 1RF gabapentin 300 mg capsule 300 mg PO TID Qty: 270 0RF docusate sodium 100 mg Capsule 100 mg PO Q12H Qty: 30 0RF levothyroxine 200 mcg tablet 200 mcg PO DAILY spironolactone 25 mg tablet 25 mg PO DAILY Qty: 30 0RF tamsulosin 0.4 mg capsule 0.4 mg PO QAM Qty: 90 3RF Follow-up/Referrals: Lilliana Tomas NP [Primary Care Provider] - Time of Disposition: 01:12
[2024-03-05] VITALS (8 sets, daily range): BP systolic 104–126; BP diastolic 53–68; PULSE 90–106; RESP 16–20; TEMP 35.9–36.5; O2SAT 95–100; BMI 43.2
[2024-03-05] MEDS: HYDROmorphone HCL INJ (*CRX) 1 MG/ML SYR IV PUSH ×4 (00:24→10:27)
[2024-03-05 00:27] LABS: Basophils Absolute Auto 0.1 K/mm3 (0.0-0.1); Basophils Percent Auto 0.5 % (0.2-1.2); Eosinophils Absolute Auto 0.3 K/mm3 (0-0.3); Eosinophils Percent Auto 2.5 % (0-4.4); Hematocrit 34.8 % (42.0-52.0); Hemoglobin 10.8 g/dL (14.0-18.0); Immature Granulocyte Absolute 0.23 K/mm3 (0.00-0.031); Immature Granulocyte Percent A 1.8 % (0-0.5); Lymphocytes Absolute Auto 0.69 K/mm3 (0.9-3.2); Lymphocytes Percent Auto 5.3 % (18.3-44.2); Mean Corpuscular Volume 90.2 fl (80-100); Mean Platelet Volume 9.7 fl (7.4-10.4); Monocytes Absolute Auto 0.9 K/mm3 (0.1-0.6); Monocytes Percent Auto 6.7 % (2.6-8.5); Neutrophils Absolute Auto 10.7 K/mm3 (1.3-6.7); Neutrophils Percent Auto 83.2 % (45.5-73.1); Platelet Count Result 439 k/mm3 (150-375); Red Blood Count 3.86 M/mm3 (4.6-6.20); Red Cell Distribution Width 14.5 % (11.5-14.5); White Blood Count 12.9 K/mm3 (4.5-10.0)
[2024-03-05 00:34] LABS: INR 1.5; Prothrombin Time 18.3 Seconds (11.1-14.7)
[2024-03-05 00:35] LABS: Partial Thromboplastin Time 39.5 Seconds (22.3-36.8)
[2024-03-05 00:40] LABS: Alanine Aminotransferase 15 U/L (6-50); Albumin Level 4.6 g/dL (3.5-5.1); Alkaline Phosphatase 60 U/L (38-126); Anion Gap 9 mmol/L (4-12); Aspartate Amino Transferase 29 U/L (17-59); Bilirubin,Total 0.8 mg/dL (0.2-1.3); Blood Urea Nitrogen 45 mg/dL (9-20); Calcium 9.3 mg/dL (8.4-10.2); Carbon Dioxide 29 mmol/L (22-30); Chloride 97 mmol/L (98-107); Estimated CRCL calculation 34 ml/min; Estimated Glomerular Filt Rate 24; Glucose 119 mg/dL (65-110); Magnesium 2.3 mg/dL (1.6-2.3); Sodium 135 mmol/L (137-145)
[2024-03-05 00:56] LABS: CRP 15.8 mg/dL (<1.0)
[2024-03-05 01:03] LABS: Erythrocyte Sedimentation Rate 95 mm/hr (0-20)
[2024-03-05 01:08] LABS: Add Urine Microscopic? NO; Appearance Urine Clear (Clear); Bilirubin Urine Negative (Negative); Blood Urine Negative (Negative); Color Urine Yellow (Yellow); Glucose Urine UA Negative (Negative); Ketones Urine Negative (Negative); Leukocyte Esterase Ur Negative LEU/UL (Negative); Nitrate Urine Negative (Negative); Protein Urine Negative (Negative); Specific Grav Ur 1.014 (1.001-1.035); pH Urine 6.5 (5.0-9.0)
[2024-03-05] MEDS: ONDANSETRON INJ 4 MG/2 ML VIAL IV PUSH ×2 (01:34→13:42)
[2024-03-05] MEDS: VANCOMYCIN 1,500 MG/NS 500 ML 1,500 MG/500 ML BAG 250 MG IVPB (02:01)
[2024-03-05 02:13] LABS: Procalcitonin 0.4 ng/mL
--- NOTE | 2024-03-05 03:14 | ADMGEN ---
This patient, Irwin Cyr Jr., was admitted to [facility] Surg Room 300-01. Patient/family oriented to hospital policies and general routines including ID bracelet, bed and alarms, visiting hours, pain management, procedures, bathroom and other care routines, personal items, smoking policy, room service/diet, and visiting hours. Information on how to activate the Rapid Response Team has been discussed. Patient/Family are encouraged to report perceived risks to care and to ask questions if they do not understand what they are told or what they should do.
[2024-03-05] MEDS: WATER FOR IRRIGATION, STERILE 500 ML BOTTLE (05:20)
[2024-03-05] MEDS: WATER FOR IRRIGATION, STERILE 1,000 ML BOTTLE 1000 ML (05:20)
[2024-03-05] MEDS: LEVOTHYROXINE SODIUM 100 MCG TABLET 200 MCG PO (06:01)
[2024-03-05 06:27] LABS: Basophils Absolute Auto 0.1 K/mm3 (0.0-0.1); Basophils Percent Auto 0.5 % (0.2-1.2); Eosinophils Absolute Auto 0.3 K/mm3 (0-0.3); Eosinophils Percent Auto 2.1 % (0-4.4); Hematocrit 32.8 % (42.0-52.0); Immature Granulocyte Absolute 0.15 K/mm3 (0.00-0.031); Immature Granulocyte Percent A 1.2 % (0-0.5); Lymphocytes Absolute Auto 0.48 K/mm3 (0.9-3.2); Lymphocytes Percent Auto 3.8 % (18.3-44.2); Mean Corpuscular HGB Conc 30.5 g/dl (32-36); Mean Corpuscular Hemoglobin 27.9 pg (26-34); Mean Corpuscular Volume 91.6 fl (80-100); Mean Platelet Volume 9.7 fl (7.4-10.4); Monocytes Absolute Auto 0.9 K/mm3 (0.1-0.6); Monocytes Percent Auto 6.8 % (2.6-8.5); Neutrophils Absolute Auto 10.7 K/mm3 (1.3-6.7); Neutrophils Percent Auto 85.6 % (45.5-73.1); Platelet Count Result 366 k/mm3 (150-375); Red Blood Count 3.58 M/mm3 (4.6-6.20); Red Cell Distribution Width 14.4 % (11.5-14.5); White Blood Count 12.5 K/mm3 (4.5-10.0)
[2024-03-05 06:39] LABS: Alanine Aminotransferase 13 U/L (6-50); Albumin Level 3.8 g/dL (3.5-5.1); Alkaline Phosphatase 54 U/L (38-126); Anion Gap 5 mmol/L (4-12); Aspartate Amino Transferase 21 U/L (17-59); Bilirubin,Total 0.8 mg/dL (0.2-1.3); Blood Urea Nitrogen 44 mg/dL (9-20); Calcium 8.6 mg/dL (8.4-10.2); Carbon Dioxide 31 mmol/L (22-30); Chloride 99 mmol/L (98-107); Estimated CRCL calculation 37 ml/min; Estimated Glomerular Filt Rate 27; Glucose 133 mg/dL (65-110); Magnesium 2.3 mg/dL (1.6-2.3); Potassium 3.9 mmol/L (3.4-5.0); Sodium 135 mmol/L (137-145)
--- NOTE | 2024-03-05 07:34 | P.HP_ITS ---
H&P: HPI History of Present Illness Date/Time: 03/05/24 07:34 Chief Complaint: wound on right foot Narrative: 74-year-old gentleman with history of CHF, AFib, PVD and nonhealing venous ulcers to right lower extremity who presents emergency department chief complaint of wounds to the right lower extremity. Patient states that he has is grandson do his wound care on days that the wound nurse is not available. Yesterday he had the wound nurse come and see him she said that he needed to go to the hospital due to increased pain, drainage and erythema. Patient complains of shooting stabbing pain. Patient states that he does not walk however he does stand pivot to chair. Patient denies nausea vomiting fever chills. Review of Systems Review of Systems: 12 systems were reviewed and are negativ e except for as per HPI. [facility] Past Medical History Medical History Atrial fibrillation Chronic acquired lymphedema Chronic anemia Chronic congestive heart failure Echocardiogram in May 2021 was technically difficult and showed normal LV systolic function with an EF of 60 to 65%, severely enlarged RV chamber with moderate to severely reduced RV systolic function, severe biatrial enlargement, and moderate pulmonary hypertension. Chronic kidney disease Chronic low back pain Chronic venous insufficiency Dyslipidemia Environmental allergies Essential (primary) hypertension GERD without esophagitis Gout Hypothyroidism Lymphedema of both lower extremities Morbid obesity with body mass index (BMI) of 40.0 or higher Neuropathic pain Obstructive sleep apnea Ocular rosacea Peripheral polyneuropathy Peripheral vascular disease Rosacea Sepsis Surgical History Surgical History H/O eye surgery (~2005) [id number] [facility] History of carpal tunnel release History of cholecystectomy (2008) History of discectomy (2012) History of foot surgery Left Foot History of rotator cuff surgery Bilateral. History of thoracic surgery Pericardial effusion s/p pericardial window thought secondary to minoxidil, in 2010 at [facility]. Family History Family History Father Cardiovascular disease Grandparent Cancer Mother COPD (chronic obstructive pulmonary disease) Social History Social History Social History: Surrogate medical decision maker: Shyla Hurst, daughter. Code status: Full code. Smoking packs per day: 2 Smoking cigarettes per day: 40.0 Years smoked: 20 Smoking pack-years: 40.00 Smoking status: Never smoker Tobacco type: cigarettes Second hand tobacco smoke exposure: No Additional smoking assessment comments: 1979 Alcohol intake: never Alcohol use details: One beer daily. Substance use: never Substance use type: does not use Do You Feel Safe in your Home?: Yes Lack of Transportation: No Lack of Food: Never True Current Housing: I Have Housing Concerned About Future Housing: No Difficulty Paying Gas/Electric Bills: No Difficulty Paying for Meds: No Currently Unemployed: No Education: High School Diploma/GED Difficulty w/ Childcare or Family Care: No Living arrangements: alone Additional living arrangements comments: Lives in own home in [place]. Uses a motorized scooter and transfers with slide board. Occupation/Education: retired Additional occupation/education comments: Retired. 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 Spiritual care concerns: No Meds Home Medications and Allergies Home Medications Medication Instructions Recorded Confirmed Type loratadine 10 mg tablet (Claritin) 10 mg PO DAILY 07/12/20 03/05/24 History polyethylene glycol 3350 17 17 g PO DAILY PRN Constipation 06/02/21 03/05/24 History gram/dose oral powder (Miralax) apixaban 5 mg tablet (Eliquis) 5 mg PO Q12HR #180 tabs 01/19/22 03/05/24 Rx metoprolol tartrate 50 mg tablet 50 mg PO Q12HR #180 tabs 01/19/22 03/05/24 Rx acetazolamide 250 mg tablet 250 mg PO DAILY 11/19/22 03/05/24 History fluticasone propionate 50 1 spray intranasal DAILY PRN 11/19/22 03/05/24 History mcg/actuation nasal Congestion spray,suspension (Flonase Allergy Relief) minoxidil 10 mg tablet 10 mg PO DAILY 11/19/22 03/05/24 History lanolin alcohols-mineral 1 applic topical BID #113 grams 03/25/23 03/05/24 Rx oil-w.petrolatum-ceresin topical cream (Minerin Creme topical) spironolactone 25 mg tablet 25 mg PO DAILY #30 tabs 04/06/23 03/05/24 Rx tamsulosin 0.4 mg capsule 0.4 mg PO QAM #90 caps 04/06/23 03/05/24 Rx docusate sodium 100 mg capsule 100 mg PO Q12H #30 caps 04/26/23 03/05/24 Rx metolazone 2.5 mg tablet 5 mg PO 4XW #30 tabs 06/26/23 03/05/24 Rx levothyroxine 200 mcg tablet 200 mcg PO DAILY 08/30/23 03/05/24 History calcitriol 0.25 mcg capsule 0.25 mcg PO 3XW #36 caps 10/30/23 03/05/24 Rx sennosides 8.6 mg-docusate sodium 1 tab-cap PO HS PRN CONSTIPATION 11/15/23 03/05/24 Rx 50 mg tablet (Senokot-S) #1 tablet allopurinol 100 mg tablet 100 mg PO DAILY@0800 #30 tabs 12/16/23 03/05/24 Rx acetaminophen 325 mg tablet 500 mg PO Q4H PRN Mild Pain (1-3) 01/15/24 03/05/24 History Or Fever bumetanide 1 mg tablet 1 mg PO TID 01/15/24 03/05/24 History nystatin 100,000 unit/gram topical 1 applic topical BID #60 grams 02/19/24 03/05/24 Rx powder gabapentin 300 mg capsule 300 mg PO TID #270 caps 02/25/24 03/05/24 Rx Allergies Allergy/AdvReac Type Severity Reaction Status Date / Time oxycodone [From OxyContin] Allergy Mild Nausea Verified 02/26/24 11:05 Sulfa (Sulfonamide Allergy Mild Rash Verified 02/26/24 11:05 Antibiotics) Penicillins Allergy Unknown SWELLING Verified 02/26/24 11:05 codeine AdvReac Mild N/V Verified 02/26/24 11:05 hydrocodone AdvReac Mild N/V Verified 02/26/24 11:05 tramadol AdvReac Mild Nausea Verified 02/26/24 11:05 Vital Signs Vital Signs - 24 hr 03/04/24 19:34 03/04/24 23:35 03/05/24 00:30 Temperature 98.2 F Pulse Rate 107 H 99 92 Respiratory Rate 17 14 17 Blood Pressure 117/65 104/58 L Pulse Oximetry 99 100 97 Oxygen Delivery 03/05/24 02:03 03/05/24 03:19 03/05/24 03:45 Temperature 96.6 F L Pulse Rate 90 106 H Respiratory Rate 17 20 Blood Pressure 126/58 L 115/53 L Pulse Oximetry 100 98 Oxygen Delivery CPAP 03/05/24 05:53 Temperature 96.7 F L Pulse Rate 95 Respiratory Rate 16 Blood Pressure 113/68 Pulse Oximetry 100 Oxygen Delivery Exam Narrative: General: well appearing, appears stated age. HEENT: normocephalic, atraumatic. Mucous membranes moist. EOMI, PERRLA, bilateral sclera anicteric, no conjunctival injection. Neck supple without JVD, lymphadenopathy, or bruit. Respiratory: clear to ascultation bilaterally. No rales/rhonic/wheezes. Cardiovascular: Regular rate and rhythm, normal S1-S2 upon ascultation. No murmurs, rubs, or clicks. PMI is nondisplaced, capillary refill less than 3 second. Abdomen: Soft, round, no pulsatile masses, nondistended and nontender. No rebound, no guarding. No CVA tenderness, no hepatosplenomegaly. Bowel sounds present to all four quadrants. No high pitch or tinkling sounds, resonant to percussion. Extremities: No cyanosis, clubbing, Right lower extremity: Foot with area of necrosis, severe erythema and swelling sloughing of skin, leg weeping, no identifiable abscess Neuro: Alert and orientated x 4. PERRLA. Cranial nerves 2-12 intact without focal deficit. Skin: Warm, dry, and intact, without rash, erythema, or lesion. Psych: pleasant, cooperative, normal speech, normal affect, no hallucinations, no dysarthia H&P: Results Labs Labs: Short CBC 03/05/24 Range/Units 00:12 WBC 12.9 H (4.5-10.0) K/mm3 Hgb 10.8 L (14.0-18.0) g/dL Hct 34.8 L (42.0-52.0) % Plt Count 439 H (150-375) k/mm3 BMP 03/05/24 03/05/24 00:12 06:07 Sodium 135 L 135 L Potassium 4.0 3.9 Chloride 97 L 99 Carbon Dioxide 29 31 H BUN 45 H 44 H Creatinine 2.60 H 2.40 H Glucose 119 H 133 H Calcium 9.3 8.6 Liver Function 03/05/24 03/05/24 Range/Units 00:12 06:07 Total Bilirubin 0.8 0.8 (0.2-1.3) mg/dL AST 29 21 (17-59) U/L ALT 15 13 (6-50) U/L Alkaline Phosphatase 60 54 (38-126) U/L Albumin 4.6 3.8 (3.5-5.1) g/dL Urine 03/05/24 Range/Units 00:48 Urine Color Yellow (Yellow) Urine Appearance Clear (Clear) Urine pH 6.5 (5.0-9.0) Ur Specific Gibbs 1.014 (1.001-1.035) Urine Protein Negative (Negative) mg/dL Urine Glucose (UA) Negative (Negative) mg/dL Assessment and Plan Assessment and plan (1) Venous stasis ulcer of right lower extremity: Code(s): I83.019 - Varicose veins of right lower extremity with ulcer of unspecified site; L97.919 - Non-pressure chronic ulcer of unspecified part of right lower leg with unspecified severity Status: Acute Assessment and Plan: X-ray shows No definite radiographic evidence for osteomyelitis On vancomycin and Rocephin Wound care consult (2) Leukocytosis: Code(s): D72.829 - Elevated white blood cell count, unspecified Status: Acute Assessment and Plan: Secondary to above (3) JENA (acute kidney injury): Code(s): N17.9 - Acute kidney failure, unspecified Status: Acute Assessment and Plan: CKD stage 3 Patient on vancomycin Avoid other nephrotoxic medications Daily BMP Allopurinol held Patient may need gabapentin Hold put currently is having severe numbness and tingling so will continue and monitor BMP Gentle IV hydration monitor for fluid overload (4) Chronic congestive heart failure: Qualifiers: Heart failure type: combined systolic and diastolic Qualified Code(s): I50.42 - Chronic combined systolic (congestive) and diastolic (congestive) heart failure Code(s): I50.9 - Heart failure, unspecified Status: Chronic Assessment and Plan: Restarted Aldactone and Bumex Gentle hydration for JENA monitor for fluid overload (5) Atrial fibrillation: Qualifiers: Atrial fibrillation type: longstanding persistent Qualified Code(s): I48.11 - Longstanding persistent atrial fibrillation Code(s): I48.91 - Unspecified atrial fibrillation Status: Acute Assessment and Plan: Restart Eliquis and metoprolol (6) BPH (benign prostatic hyperplasia): Code(s): N40.0 - Benign prostatic hyperplasia without lower urinary tract symptoms Status: Acute Assessment and Plan: Restart Flomax Quality VTE Prophylaxis VTE prophylaxis: pharmacologic ordered If No VTE Prophylaxis Answer both mechanical and pharmacologic: Reason no mechanical VTE proph: medical contraindication Hospitalist MIPS Advance Care Plan I have confirmed that the patient's Advanced Care Plan is present, code status is documented, or surrogate decision maker is listed in patient medical record.: Yes Medication Reconciliation I have utilized all available resources to obtain, update and review the patients current medications (includes all prescriptions, OTC, herbals, cannabis, and nutritional supplements).: Yes
[2024-03-05] MEDS: SPIRONOLACTONE 25 MG TABLET PO (07:49)
[2024-03-05] MEDS: TAMSULOSIN HCL 0.4 MG CAPSULE PO (07:49)
[2024-03-05] MEDS: minoxidiL 10 MG TABLET PO (07:49)
[2024-03-05] MEDS: DOCUSATE SODIUM 100 MG CAPSULE PO ×2 (07:49→21:15)
[2024-03-05] MEDS: acetaZOLAMIDE TAB 250 MG TABLET PO (07:49)
[2024-03-05] MEDS: LORATADINE 10 MG TABLET PO (07:49)
[2024-03-05] MEDS: METOPROLOL TARTRATE 50 MG TAB PO ×2 (07:49→21:11)
[2024-03-05] MEDS: BUMETANIDE 1 MG TABLET PO ×3 (07:49→18:05)
[2024-03-05] MEDS: FLUTICASONE PROPIONATE 0.05% NA SPR 16 GM BTL (*BKC) 1 SPRAY NASAL (07:51)
[2024-03-05] MEDS: EUCERIN CREAM 120 GM JAR 1 APPLIC TOPICAL ×2 (07:52→18:05)
[2024-03-05] MEDS: APIXABAN 5 MG TABLET PO ×2 (07:52→21:12)
[2024-03-05] MEDS: GABAPENTIN 300 MG CAPSULE PO ×3 (07:52→18:05)
[2024-03-05] MEDS: allopurinoL 100 MG TABLET PO (07:52)
[2024-03-05] MEDS: polyethylene glycoL 3350 17 GM POWD.PACK PO (07:53)
[2024-03-05] MEDS: ACETAMINOPHEN 325 MG TABLET 650 MG PO ×2 (07:57→12:24)
--- NOTE | 2024-03-05 13:32 | PCPTNOTE ---
attempted PT eval, pt states he is in a lot of electric nerve pain in the R foot, politely declined PT eval today but states to come back tomorrow when he is in less pain, will follow
[2024-03-05] MEDS: SODIUM CHLORIDE 0.9% IV 1,000 ML 75 ML IV CONT (13:42)
[2024-03-05] MEDS: CYCLOBENZAPRINE HCL 5 MG TABLET PO ×2 (13:42→21:12)
[2024-03-05] MEDS: HYDROcodone/acetaminophen (*CRX) 5-325 MG TABLET 1 TAB PO ×2 (13:42→18:06)
[2024-03-05] MEDS: cefTRIAXone 2 GM/NS 100 ML 2 GM/100 ML BAG IVPB (13:44)
[2024-03-06] MEDS: SODIUM CHLORIDE 0.9% IV 1,000 ML 75 ML IV CONT (03:33)
[2024-03-06] MEDS: HYDROcodone/acetaminophen (*CRX) 5-325 MG TABLET 1 TAB PO ×3 (03:37→12:39)
[2024-03-06 05:48] VITALS: BP 122/53; PULSE 98; RESP 16; TEMP 37.1; O2SAT 97
[2024-03-06 06:06] LABS: Basophils Absolute Auto 0.1 K/mm3 (0.0-0.1); Basophils Percent Auto 0.4 % (0.2-1.2); Eosinophils Absolute Auto 0.3 K/mm3 (0-0.3); Eosinophils Percent Auto 2.8 % (0-4.4); Hematocrit 27.2 % (42.0-52.0); Hemoglobin 8.5 g/dL (14.0-18.0); Immature Granulocyte Absolute 0.11 K/mm3 (0.00-0.031); Lymphocytes Absolute Auto 0.39 K/mm3 (0.9-3.2); Lymphocytes Percent Auto 3.4 % (18.3-44.2); Mean Corpuscular HGB Conc 31.3 g/dl (32-36); Mean Corpuscular Hemoglobin 28.3 pg (26-34); Mean Corpuscular Volume 90.7 fl (80-100); Mean Platelet Volume 9.8 fl (7.4-10.4); Monocytes Absolute Auto 0.7 K/mm3 (0.1-0.6); Monocytes Percent Auto 6.4 % (2.6-8.5); Neutrophils Absolute Auto 9.8 K/mm3 (1.3-6.7); Platelet Count Result 355 k/mm3 (150-375); Red Cell Distribution Width 14.3 % (11.5-14.5); White Blood Count 11.4 K/mm3 (4.5-10.0)
[2024-03-06 06:27] LABS: Alanine Aminotransferase 11 U/L (6-50); Albumin Level 3.6 g/dL (3.5-5.1); Alkaline Phosphatase 50 U/L (38-126); Anion Gap 7 mmol/L (4-12); Aspartate Amino Transferase 18 U/L (17-59); Bilirubin,Total 0.6 mg/dL (0.2-1.3); Blood Urea Nitrogen 41 mg/dL (9-20); Calcium 8.3 mg/dL (8.4-10.2); Carbon Dioxide 28 mmol/L (22-30); Chloride 101 mmol/L (98-107); Estimated CRCL calculation 39 ml/min; Estimated Glomerular Filt Rate 28; Glucose 139 mg/dL (65-110); Magnesium 2.1 mg/dL (1.6-2.3); Potassium 3.5 mmol/L (3.4-5.0); Sodium 136 mmol/L (137-145)
[2024-03-06] MEDS: LEVOTHYROXINE SODIUM 100 MCG TABLET 200 MCG PO (06:38)
[2024-03-06] MEDS: CYCLOBENZAPRINE HCL 5 MG TABLET PO ×3 (06:38→22:03)
--- NOTE | 2024-03-06 08:17 | PCPTNOTE ---
Waiting for MRI results prior to seeing pt for physical therapy. Will follow.
[2024-03-06] MEDS: cefTRIAXone 2 GM/NS 100 ML 2 GM/100 ML BAG IVPB (08:48)
[2024-03-06] MEDS: APIXABAN 5 MG TABLET PO ×2 (08:52→22:02)
[2024-03-06] MEDS: DOCUSATE SODIUM 100 MG CAPSULE PO ×2 (08:52→22:03)
[2024-03-06] MEDS: LORATADINE 10 MG TABLET PO (08:52)
[2024-03-06] MEDS: GABAPENTIN 300 MG CAPSULE PO ×3 (08:52→16:31)
[2024-03-06] MEDS: TAMSULOSIN HCL 0.4 MG CAPSULE PO (08:52)
[2024-03-06] MEDS: SPIRONOLACTONE 25 MG TABLET PO (08:52)
[2024-03-06] MEDS: METOPROLOL TARTRATE 50 MG TAB PO ×2 (08:53→22:02)
[2024-03-06] MEDS: BUMETANIDE 1 MG TABLET PO ×3 (08:53→16:31)
[2024-03-06] MEDS: minoxidiL 10 MG TABLET PO (08:53)
[2024-03-06] MEDS: acetaZOLAMIDE TAB 250 MG TABLET PO (08:53)
[2024-03-06] MEDS: calcitrioL 0.25 MCG CAPSULE PO (08:56)
[2024-03-06] MEDS: metOLazone 5 MG TABLET PO (08:56)
[2024-03-06] MEDS: EUCERIN CREAM 120 GM JAR 1 APPLIC TOPICAL ×2 (09:33→16:31)
[2024-03-06] MEDS: HYDROmorphone HCL INJ (*CRX) 1 MG/ML SYR 0.5 MG IV PUSH (09:33)
[2024-03-06] MEDS: HYDROcodone/acetaminophen (*CRX) 10-325 MG TABLET 1 TAB PO ×2 (10:59→16:31)
--- NOTE | 2024-03-06 12:24 | PM.IMPN ---
Progress Note: A&P Assessment and Plan (1) Venous stasis ulcer of right lower extremity: Code(s): I83.019 - Varicose veins of right lower extremity with ulcer of unspecified site; L97.919 - Non-pressure chronic ulcer of unspecified part of right lower leg with unspecified severity Status: Acute Assessment and Plan: X-ray shows No definite radiographic evidence for osteomyelitis On vancomycin and Rocephin Wound care consult 03/06: Consult General Surgery for possible debridement vs amputation MRI Right foot and ankle (2) Leukocytosis: Code(s): D72.829 - Elevated white blood cell count, unspecified Status: Acute Assessment and Plan: Secondary to above (3) JENA (acute kidney injury): Code(s): N17.9 - Acute kidney failure, unspecified Status: Acute Assessment and Plan: CKD stage 3 Patient on vancomycin Avoid other nephrotoxic medications Daily BMP Allopurinol held Patient may need gabapentin Hold put currently is having severe numbness and tingling so will continue and monitor BMP Gentle IV hydration monitor for fluid overload 03/06: Stopped IV fluids (4) Chronic congestive heart failure: Qualifiers: Heart failure type: combined systolic and diastolic Qualified Code(s): I50.42 - Chronic combined systolic (congestive) and diastolic (congestive) heart failure Code(s): I50.9 - Heart failure, unspecified Status: Chronic Assessment and Plan: Restarted Aldactone and Bumex Gentle hydration for JENA monitor for fluid overload 03/06: Stopped IV fluids, no signs of dyspnea at this time (5) Atrial fibrillation: Qualifiers: Atrial fibrillation type: longstanding persistent Qualified Code(s): I48.11 - Longstanding persistent atrial fibrillation Code(s): I48.91 - Unspecified atrial fibrillation Status: Acute Assessment and Plan: Restart Eliquis and metoprolol (6) BPH (benign prostatic hyperplasia): Code(s): N40.0 - Benign prostatic hyperplasia without lower urinary tract symptoms Status: Acute Assessment and Plan: Restart Flomax Time Spent With Patient Time with patient: Greater than 35 minutes Subjective Date/time seen: 03/06/24 12:24 Interval history: Patient having pain control issues, resumed hydromorphone 1 mg per dose. Patient also has [place] for pain, nausea medication as needed for n/v associated with pain medication. Patient sent to MRI today for right foot/ankle MRI to better assess for osteomyelitis. Necrotic portion near MTP joints of multiple toes. Consult general surgery for evaluation for possible debridement vs amputation. Continue Rocephin/Vanc for infected right foot wound Review of Systems Review of Systems: All systems reviewed & are unremarkable except as noted in HPI and below Exam Narrative: General: well appearing, appears stated age. HEENT: normocephalic, atraumatic. Mucous membranes moist. EOMI, PERRLA, bilateral sclera anicteric, no conjunctival injection. Neck supple without JVD, lymphadenopathy, or bruit. Respiratory: clear to auscultation bilaterally. No rales/rhonchi/wheezes. Cardiovascular: Regular rate and rhythm, normal S1-S2 upon auscultation. Abdomen: Soft, round, no pulsatile masses, nondistended and nontender. No rebound, no guarding. No CVA tenderness, no hepatosplenomegaly. Bowel sounds present to all four quadrants. Right lower extremity: Foot with area of necrosis, severe erythema and swelling sloughing of skin, leg weeping, no identifiable abscess Neuro: Alert and orientated x 4. PERRLA. Skin: Warm, dry, and intact, without rash, erythema, or lesion. Psych: pleasant, cooperative, normal speech, normal affect, no hallucinations, no dysarthria Objective Data Vital Signs Vital Signs: Vital Signs - 24 hr 03/05/24 14:00 03/05/24 22:00 03/06/24 05:48 Temperature 36.1 C L 36.5 C 37.1 C Pulse Rate 90 102 H 98 Respiratory Rate 18 20 16 Blood Pressure 115/56 L 118/66 122/53 L Pulse Oximetry 100 98 97 Oxygen Delivery 03/06/24 08:00 Temperature Pulse Rate Respiratory Rate Blood Pressure Pulse Oximetry Oxygen Delivery Room Air Intake/Output Intake/Output: Intake & Output 03/03/24 03/04/24 03/05/24 03/06/24 23:59 23:59 23:59 23:59 Intake Total 1080 1380 Output Total 1650 1000 Balance -570 380 Meds/Results Medications: Active Medications Generic Name Dose Route Start Last Admin Trade Name Freq PRN Reason Stop Dose Admin Acetaminophen 650 mg 03/05/24 01:12 03/05/24 12:24 Acetaminophen 325 Mg Tablet PO 650 mg Q4H PRN Administration Mild Pain (1-3) or Fever Hydrocodone Bitart/Acetaminophen 1 tab 03/05/24 12:46 03/06/24 08:56 Hydrocodone/Acetaminophen (*Crx) 5-325 Mg Tablet PO 1 tab Q4H PRN Administration Pain Rated 4-6 Hydrocodone Bitart/Acetaminophen 1 tab 03/05/24 12:46 03/06/24 10:59 Hydrocodone/Acetaminophen (*Crx) 10-325 Mg Tablet PO 1 tab Q4H PRN Administration Pain Rated 7-10 Acetazolamide 250 mg 03/05/24 09:00 03/06/24 08:53 Acetazolamide Tab 250 Mg Tablet PO 250 mg DAILY ANGELA Administration Allopurinol 100 mg 03/05/24 08:00 03/05/24 07:52 Allopurinol 100 Mg Tablet PO 100 mg DAILY@0800 ANGELA Administration Apixaban 5 mg 03/05/24 09:00 03/06/24 08:52 Apixaban 5 Mg Tablet PO 5 mg Q12HR ANGELA Administration Bumetanide 1 mg 03/05/24 09:00 03/06/24 08:53 Bumetanide 1 Mg Tablet PO 1 mg TID ANGELA Administration Calcitriol 0.25 mcg 03/06/24 09:00 03/06/24 08:56 Calcitriol 0.25 Mcg Capsule PO 0.25 mcg MoWeFr ANGELA Administration Cyclobenzaprine HCl 5 mg 03/05/24 14:00 03/06/24 06:38 Cyclobenzaprine Hcl 5 Mg Tablet PO 5 mg Q8H ANGELA Administration Docusate Sodium 100 mg 03/05/24 09:00 03/06/24 08:52 Docusate Sodium 100 Mg Capsule PO 100 mg Q12HR ANGELA Administration Fluticasone Propionate 1 spray 03/05/24 04:31 03/05/24 07:51 Fluticasone Propionate 0.05% Na Spr 16 Gm Btl (*Bkc) NASAL 1 spray DAILY PRN Administration Congestion Gabapentin 300 mg 03/05/24 09:00 03/06/24 08:52 Gabapentin 300 Mg Capsule PO 300 mg TID ANGELA Administration Hydromorphone HCl 1 mg 03/06/24 11:13 Hydromorphone Hcl Inj (*Crx) 1 Mg/Ml Syr IV PUSH Q3H PRN Breakthrough pain Vancomycin HCl 1,500 mg in 500 mls @ 250 mls/hr 03/05/24 02:00 03/05/24 02:01 Vancomycin 1,500 Mg/Ns 500 Ml IVPB 250 mls/hr Q36H ANGELA Administration Ceftriaxone Sodium 2 gm in 100 mls @ 200 mls/hr 03/05/24 14:00 03/06/24 09:17 Rocephin 2 Gm/Ns 100 Ml IVPB Infused QAM [facility] Infusion Levothyroxine Sodium 200 mcg 03/05/24 06:30 03/06/24 06:38 Levothyroxine Sodium 100 Mcg Tablet PO 200 mcg DAILY@0630 ANGELA Administration Loratadine 10 mg 03/05/24 09:00 03/06/24 08:52 Loratadine 10 Mg Tablet PO 10 mg DAILY [facility] Administration Metolazone 5 mg 03/06/24 09:00 03/06/24 08:56 Metolazone 5 Mg Tablet PO 5 mg MoWeFrSa [facility] Administration Metoprolol Tartrate 50 mg 03/05/24 09:00 03/06/24 08:53 Metoprolol Tartrate 50 Mg Tab PO 50 mg Q12HR ANGELA Administration Minoxidil 10 mg 03/05/24 09:00 03/06/24 08:53 Minoxidil 10 Mg Tablet PO 10 mg DAILY [facility] Administration Multi-Ingred Cream/Lotion/Oil/Oint 1 applic 03/05/24 09:00 03/06/24 09:33 Eucerin Cream 120 Gm Jar TOPICAL 1 applic BID ANGELA Administration Ondansetron HCl 4 mg 03/05/24 01:12 03/05/24 13:42 Ondansetron Inj 4 Mg/2 Ml Vial IV PUSH 4 mg Q4H PRN Administration Nausea Polyethylene Glycol 17 gm 03/05/24 04:31 03/05/24 07:53 Polyethylene Glycol 3350 17 Gm Powd.Pack PO 17 gm DAILY PRN Administration Constipation Senna/Docusate Sodium 1 tab 03/05/24 04:31 Senna/Docusate Sodium Tablet PO HS PRN CONSTIPATION Spironolactone 25 mg 03/05/24 09:00 03/06/24 08:52 Spironolactone 25 Mg Tablet PO 25 mg DAILY ANGELA Administration Tamsulosin HCl 0.4 mg 03/05/24 09:00 03/06/24 08:52 Tamsulosin Hcl 0.4 Mg Capsule PO 0.4 mg QAM ANGELA Administration Radiology Results: ITS Impressions Foot X-Ray 03/05/24 05:36 Impression: No definite radiographic evidence for osteomyelitis. Soft tissue swelling of the forefoot, especially dorsally. Labs Labs: Laboratory Results - last 24 hr 03/06/24 05:23 WBC 11.4 H RBC 3.00 L Hgb 8.5 L Hct 27.2 L MCV 90.7 MCH 28.3 MCHC 31.3 L RDW 14.3 Plt Count 355 MPV 9.8 Immature Gran % (Auto) 1.0 H Neut % (Auto) 86.0 H Lymph % (Auto) 3.4 L [place] % (Auto) 6.4 Eos % (Auto) 2.8 Baso % (Auto) 0.4 Lymph # (Auto) 0.39 L [place] # (Auto) 0.7 H Eos # (Auto) 0.3 Baso # (Auto) 0.1 Abs Immat Gran (auto) 0.11 H Absolute Neuts (auto) 9.8 H Absolute Nucleated RBC 0.000 Nucleated RBC % 0.0 Sodium 136 L Potassium 3.5 Chloride 101 Carbon Dioxide 28 Anion Gap 7 BUN 41 H Creatinine 2.30 H Estim Creat Clear Calc 39 Estimated GFR 28 L Glucose 139 H Calcium 8.3 L Magnesium 2.1 Total Bilirubin 0.6 AST 18 ALT 11 Alkaline Phosphatase 50 Total Protein 6.0 L Albumin 3.6 Pulse Oximetry SpO2 results: 95-100% on room air Attestation: I personally reviewed and interpreted this pulse oximetry as follows: Interpretation: No need for supplemental oxygenation at this time Quality VTE Prophylaxis VTE prophylaxis: pharmacologic ordered Hospitalist [facility] Advance Care Plan I have confirmed that the patient's Advanced Care Plan is present, code status is documented, or surrogate decision maker is listed in patient medical record.: Yes Medication Reconciliation I have utilized all available resources to obtain, update and review the patients current medications (includes all prescriptions, OTC, herbals, cannabis, and nutritional supplements).: Yes
[2024-03-06] MEDS: HYDROmorphone HCL INJ (*CRX) 1 MG/ML SYR IV PUSH ×2 (12:39→19:40)
--- NOTE | 2024-03-06 13:33 | PCOTNOTE ---
Waiting for MRI results prior to seeing pt for occupational therapy. Will follow.
[2024-03-06] MEDS: VANCOMYCIN 1,500 MG/NS 500 ML 1,500 MG/500 ML BAG 150 MG IVPB (13:36)
[2024-03-06 14:00] VITALS: BP 122/65; PULSE 95; RESP 18; TEMP 36.7; O2SAT 97
[2024-03-06 21:17] VITALS: BP 145/70; PULSE 98; RESP 22; TEMP 36.8; O2SAT 96
[2024-03-06 22:02] VITALS: PULSE 84
[2024-03-07] MEDS: HYDROcodone/acetaminophen (*CRX) 10-325 MG TABLET 1 TAB PO ×3 (04:20→21:14)
[2024-03-07 06:00] VITALS: BP 127/60; PULSE 94; RESP 16; TEMP 36.6; O2SAT 99
[2024-03-07] MEDS: CYCLOBENZAPRINE HCL 5 MG TABLET PO ×3 (06:09→21:15)
[2024-03-07] MEDS: LEVOTHYROXINE SODIUM 100 MCG TABLET 200 MCG PO (06:09)
[2024-03-07 07:03] LABS: Basophils Absolute Auto 0.1 K/mm3 (0.0-0.1); Basophils Percent Auto 0.7 % (0.2-1.2); Eosinophils Absolute Auto 0.4 K/mm3 (0-0.3); Eosinophils Percent Auto 3.6 % (0-4.4); Hemoglobin 8.9 g/dL (14.0-18.0); Immature Granulocyte Absolute 0.16 K/mm3 (0.00-0.031); Immature Granulocyte Percent A 1.6 % (0-0.5); Lymphocytes Absolute Auto 0.41 K/mm3 (0.9-3.2); Mean Corpuscular HGB Conc 30.7 g/dl (32-36); Mean Corpuscular Hemoglobin 27.9 pg (26-34); Mean Corpuscular Volume 90.9 fl (80-100); Mean Platelet Volume 9.9 fl (7.4-10.4); Monocytes Absolute Auto 0.8 K/mm3 (0.1-0.6); Monocytes Percent Auto 7.9 % (2.6-8.5); Neutrophils Absolute Auto 8.4 K/mm3 (1.3-6.7); Neutrophils Percent Auto 82.2 % (45.5-73.1); Platelet Count Result 362 k/mm3 (150-375); Red Blood Count 3.19 M/mm3 (4.6-6.20); Red Cell Distribution Width 14.2 % (11.5-14.5); White Blood Count 10.2 K/mm3 (4.5-10.0)
[2024-03-07 07:19] LABS: Alanine Aminotransferase 11 U/L (6-50); Albumin Level 3.6 g/dL (3.5-5.1); Alkaline Phosphatase 57 U/L (38-126); Anion Gap 7 mmol/L (4-12); Aspartate Amino Transferase 17 U/L (17-59); Bilirubin,Total 0.6 mg/dL (0.2-1.3); Blood Urea Nitrogen 39 mg/dL (9-20); Calcium 8.5 mg/dL (8.4-10.2); Carbon Dioxide 29 mmol/L (22-30); Chloride 98 mmol/L (98-107); Estimated CRCL calculation 39 ml/min; Estimated Glomerular Filt Rate 28; Glucose 117 mg/dL (65-110); Magnesium 2.1 mg/dL (1.6-2.3); Potassium 3.3 mmol/L (3.4-5.0); Sodium 134 mmol/L (137-145)
[2024-03-07] MEDS: TAMSULOSIN HCL 0.4 MG CAPSULE PO (08:31)
[2024-03-07] MEDS: DOCUSATE SODIUM 100 MG CAPSULE PO ×2 (08:31→21:14)
[2024-03-07] MEDS: METOPROLOL TARTRATE 50 MG TAB PO ×2 (08:31→21:15)
[2024-03-07] MEDS: BUMETANIDE 1 MG TABLET PO ×3 (08:31→16:49)
[2024-03-07] MEDS: LORATADINE 10 MG TABLET PO (08:31)
[2024-03-07] MEDS: SPIRONOLACTONE 25 MG TABLET PO (08:31)
[2024-03-07] MEDS: GABAPENTIN 300 MG CAPSULE PO ×3 (08:31→16:49)
[2024-03-07] MEDS: APIXABAN 5 MG TABLET PO ×2 (08:31→21:15)
[2024-03-07] MEDS: acetaZOLAMIDE TAB 250 MG TABLET PO (08:31)
[2024-03-07] MEDS: minoxidiL 10 MG TABLET PO (08:32)
[2024-03-07] MEDS: cefTRIAXone 2 GM/NS 100 ML 2 GM/100 ML BAG IVPB (08:32)
[2024-03-07] MEDS: metOLazone 5 MG TABLET PO (08:35)
[2024-03-07] MEDS: EUCERIN CREAM 120 GM JAR 1 APPLIC TOPICAL ×2 (08:36→16:49)
[2024-03-07] MEDS: HYDROcodone/acetaminophen (*CRX) 5-325 MG TABLET 1 TAB PO ×2 (09:31→16:49)
--- NOTE | 2024-03-07 09:47 | P.PNIM_ITS ---
Progress Note: A&P Assessment and Plan (1) Venous stasis ulcer of right lower extremity: Code(s): I83.019 - Varicose veins of right lower extremity with ulcer of unspecified site; L97.919 - Non-pressure chronic ulcer of unspecified part of right lower leg with unspecified severity Status: Acute Assessment and Plan: * initial white blood cell count 12.9, ESR 95, CRP 15.8 * white blood cell count today 10.2, * wound care consult * general surgery consulted for possible debridement * continue vancomycin and Rocephin * Will obtain wound cultures (2) JENA (acute kidney injury): Code(s): N17.9 - Acute kidney failure, unspecified Status: Chronic Assessment and Plan: * creatinine 2.30, EGFR 28 * baseline creatinine 1.7 to 2.2 * continue to trend (3) Chronic congestive heart failure: Qualifiers: Heart failure type: combined systolic and diastolic Qualified Code(s): I50.42 - Chronic combined systolic (congestive) and diastolic (congestive) heart failure Code(s): I50.9 - Heart failure, unspecified Status: Chronic Assessment and Plan: * last echo from 04/23/2022 reviewed which shown Normal LV systolic function with an estimated EF of 65-70%, grade 1 diastolic dysfunction. * continue Bumex, spironolactone, currently on metoprolol (4) Atrial fibrillation: Qualifiers: Atrial fibrillation type: longstanding persistent Qualified Code(s): I48.11 - Longstanding persistent atrial fibrillation Code(s): I48.91 - Unspecified atrial fibrillation Status: Acute Assessment and Plan: * continue Eliquis metoprolol (5) BPH (benign prostatic hyperplasia): Code(s): N40.0 - Benign prostatic hyperplasia without lower urinary tract symptoms Status: Chronic Assessment and Plan: * continue Flomax Time Spent With Patient Time with patient: Greater than 35 minutes Subjective Date/time seen: 03/07/24 09:47 Interval history: Interval history: This is a 74-year-old male who presented to emergency room on 03/05/2024 for evaluation of right foot wound. Workup in the hospital included a foot x-ray which did not show any evidence of osteomyelitis, showed soft tissue swelling of the forefoot especially dorsally. Foot MRI was negative for osteitis or abscess, showed diffuse subcutaneous soft tissue edema, probable mild nonspecific myositis, mild degenerative changes in the toes. Ankle x-ray was negative for any acute osteomyelitis. Initial labs showed a white blood cell count of 12.9, hemoglobin 10.8, platelet count 439, ESR 95, sodium 135, chloride 97, creatinine 2.60, EGFR 24, C reactive protein 15.8, procalcitonin 0.4. UA was obtained and was negative. Blood cultures were obtained and currently showing no growth to date on preliminary read. EKG showed ectopic atrial rhythm with a rate of 79, QTC 517, with a right bundle branch block and left anterior fascicular block. Patient initially started on vancomycin and Rocephin. Wound Care and General surgery consulted. Subjective: Patient denies any fever, chills, nausea, vomiting, diarrhea, abdominal pain, chest pain, or shortness of breath. Patient endorses pain in right foot that is moderately controlled on pain regimen. Labs and imaging reviewed. Review of Systems Review of Systems: All systems reviewed & are unremarkable except as noted in HPI and below Constitutional: Constitutional: Reports as per HPI and Reports no additional constitutional complaints Eyes: Eyes: Reports as per HPI and Reports no additional eye complaints ENT: Reports system reviewed and no additional complaints, except as documented and Reports as per HPI Cardiovascular: Cardiovascular: Reports as per HPI and Reports no additional cardiovascular complaints Respiratory: Respiratory: Reports as per HPI and Reports no additional respiratory complaints Gastrointestinal: Gastrointestinal: Reports as per HPI and Reports no additi onal gastrointestinal complaints Genitourinary: Genitourinary: Reports no additional male genitourinary complaints and Reports as per HPI Musculoskeletal: Musculoskeletal: Reports no additional musculoskeletal complaints and Reports as per HPI Integumentary/Breasts: Skin/Breast: Reports system reviewed and no additional complaints, except as docu and Reports as per HPI Neurologic: Reports system reviewed and no additional complaints, except as documented and Reports as per HPI Psychiatric: Psychiatric: Reports no additional psychiatric complaints and Reports as per HPI Exam Narrative: General: In no acute distress, well nourished Head: atraumatic, no encephalopathy Eyes: PERRLA, sclera clear ENT: moist mucous membranes, nasal passages clear Neck: supple, no JVD, no adenopathy, trachea midline Cardiac: Normal S1 and S2. RRR, No murmur, gallops or friction rubs, peripheral pulses intact. Respiratory: Lungs clear to auscultation, no adventitious lung sounds, currently on room air Gastrointestinal: soft, non-distended, non-tender, normoactive bowel sounds. : voiding without difficulty. Extremities: moves all extremities well, BLE generalized edema, good ROM, strength 5/5 Skin: Purulent drainage from multiple toes/ wound sites, dressing saturated, ch ronic venous stasis wounds Neuro: Alert and oriented x4, cranial nerves intact, no neuro deficits. Psych: normal mood, normal affect, interactive Objective Data Vital Signs Vital Signs: Vital Signs - 24 hr 03/06/24 14:00 03/06/24 21:17 03/06/24 22:02 Temperature 98.0 F 98.2 F Pulse Rate 95 98 84 Respiratory Rate 18 22 H Blood Pressure 122/65 145/70 H Pulse Oximetry 97 96 03/07/24 06:00 Temperature 97.8 F Pulse Rate 94 Respiratory Rate 16 Blood Pressure 127/60 Pulse Oximetry 99 Intake/Output Intake/Output: Intake & Output 03/04/24 03/05/24 03/06/24 03/07/24 23:59 23:59 23:59 23:59 Intake Total 1580 2570 350 Output Total 1650 1650 1975 Balance -70 920 -1625 Meds/Results Medications: Active Medications Generic Name Dose Route Start Last Admin Trade Name Freq PRN Reason Stop Dose Admin Acetaminophen 650 mg 03/05/24 01:12 03/05/24 12:24 Acetaminophen 325 Mg Tablet PO 650 mg Q4H PRN Administration Mild Pain (1-3) or Fever Hydrocodone Bitart/Acetaminophen 1 tab 03/05/24 12:46 03/07/24 09:31 Hydrocodone/Acetaminophen (*Crx) 5-325 Mg Tablet PO 1 tab Q4H PRN Administration Pain Rated 4-6 Hydrocodone Bitart/Acetaminophen 1 tab 03/05/24 12:46 03/07/24 04:20 Hydrocodone/Acetaminophen (*Crx) 10-325 Mg Tablet PO 1 tab Q4H PRN Administration Pain Rated 7-10 Acetazolamide 250 mg 03/05/24 09:00 03/07/24 08:31 Acetazolamide Tab 250 Mg Tablet PO 250 mg DAILY ANGELA Administration Allopurinol 100 mg 03/05/24 08:00 03/05/24 07:52 Allopurinol 100 Mg Tablet PO 100 mg DAILY@0800 ANGELA Administration Apixaban 5 mg 03/05/24 09:00 03/07/24 08:31 Apixaban 5 Mg Tablet PO 5 mg Q12HR ANGELA Administration Bumetanide 1 mg 03/05/24 09:00 03/07/24 08:31 Bumetanide 1 Mg Tablet PO 1 mg TID ANGELA Administration Calcitriol 0.25 mcg 03/06/24 09:00 03/06/24 08:56 Calcitriol 0.25 Mcg Capsule PO 0.25 mcg MoWeFr ANGELA Administration Cyclobenzaprine HCl 5 mg 03/05/24 14:00 03/07/24 06:09 Cyclobenzaprine Hcl 5 Mg Tablet PO 5 mg Q8H ANGELA Administration Docusate Sodium 100 mg 03/05/24 09:00 03/07/24 08:31 Docusate Sodium 100 Mg Capsule PO 100 mg Q12HR ANGELA Administration Fluticasone Propionate 1 spray 03/05/24 04:31 03/05/24 07:51 Fluticasone Propionate 0.05% Na Spr 16 Gm Btl (*Bkc) NASAL 1 spray DAILY PRN Administration Congestion Gabapentin 300 mg 03/05/24 09:00 03/07/24 08:31 Gabapentin 300 Mg Capsule PO 300 mg TID ANGELA Administration Hydromorphone HCl 1 mg 03/06/24 11:13 03/06/24 19:40 Hydromorphone Hcl Inj (*Crx) 1 Mg/Ml Syr IV PUSH 1 mg Q3H PRN Administration Breakthrough pain Vancomycin HCl 1,500 mg in 500 mls @ 250 mls/hr 03/05/24 02:00 03/06/24 16:56 Vancomycin 1,500 Mg/Ns 500 Ml IVPB Infused Q36H ANGELA Infusion Ceftriaxone Sodium 2 gm in 100 mls @ 200 mls/hr 03/05/24 14:00 03/07/24 08:32 Rocephin 2 Gm/Ns 100 Ml IVPB 200 mls/hr QAM ANGELA Administration Levothyroxine Sodium 200 mcg 03/05/24 06:30 03/07/24 06:09 Levothyroxine Sodium 100 Mcg Tablet PO 200 mcg DAILY@0630 ANGELA Administration Loratadine 10 mg 03/05/24 09:00 03/07/24 08:31 Loratadine 10 Mg Tablet PO 10 mg DAILY ANGELA Administration Metolazone 5 mg 03/06/24 09:00 03/07/24 08:35 Metolazone 5 Mg Tablet PO 5 mg MoWeFrSa ANGELA Administration Metoprolol Tartrate 50 mg 03/05/24 09:00 03/07/24 08:31 Metoprolol Tartrate 50 Mg Tab PO 50 mg Q12HR ANGELA Administration Minoxidil 10 mg 03/05/24 09:00 03/07/24 08:32 Minoxidil 10 Mg Tablet PO 10 mg DAILY ANGELA Administration Multi-Ingred Cream/Lotion/Oil/Oint 1 applic 03/05/24 09:00 03/07/24 08:36 Eucerin Cream 120 Gm Jar TOPICAL 1 applic BID ANGELA Administration Ondansetron HCl 4 mg 03/05/24 01:12 03/05/24 13:42 Ondansetron Inj 4 Mg/2 Ml Vial IV PUSH 4 mg Q4H PRN Administration Nausea Polyethylene Glycol 17 gm 03/05/24 04:31 03/05/24 07:53 Polyethylene Glycol 3350 17 Gm Powd.Pack PO 17 gm DAILY PRN Administration Constipation Senna/Docusate Sodium 1 tab 03/05/24 04:31 Senna/Docusate Sodium Tablet PO HS PRN CONSTIPATION Spironolactone 25 mg 03/05/24 09:00 03/07/24 08:31 Spironolactone 25 Mg Tablet PO 25 mg DAILY ANGELA Administration Tamsulosin HCl 0.4 mg 03/05/24 09:00 03/07/24 08:31 Tamsulosin Hcl 0.4 Mg Capsule PO 0.4 mg QAM ANGELA Administration Radiology Results: ITS Impressions Foot X-Ray 03/05/24 05:36 Impression: No definite radiographic evidence for osteomyelitis. Soft tissue swelling of the forefoot, especially dorsally. Foot MRI 03/06/24 13:53 IMPRESSION: No evidence for osteitis or abscess. Prominent, diffuse subcutaneous soft tissue edema. Probable mild nonspecific myositis. Mild degenerative changes in the toes. Ankle MRI 03/06/24 14:40 IMPRESSION: 1. No evidence of osteomyelitis. Labs Labs: Laboratory Results - last 24 hr 03/07/24 06:11 WBC 10.2 H RBC 3.19 L Hgb 8.9 L Hct 29.0 L MCV 90.9 MCH 27.9 MCHC 30.7 L RDW 14.2 Plt Count 362 MPV 9.9 Immature Gran % (Auto) 1.6 H Neut % (Auto) 82.2 H Lymph % (Auto) 4.0 L [place] % (Auto) 7.9 Eos % (Auto) 3.6 Baso % (Auto) 0.7 Lymph # (Auto) 0.41 L [place] # (Auto) 0.8 H Eos # (Auto) 0.4 H Baso # (Auto) 0.1 Abs Immat Gran (auto) 0.16 H Absolute Neuts (auto) 8.4 H Absolute Nucleated RBC 0.000 Nucleated RBC % 0.0 Sodium 134 L Potassium 3.3 L Chloride 98 Carbon Dioxide 29 Anion Gap 7 BUN 39 H Creatinine 2.30 H Estim Creat Clear Calc 39 Estimated GFR 28 L Glucose 117 H Calcium 8.5 Magnesium 2.1 Total Bilirubin 0.6 AST 17 ALT 11 Alkaline Phosphatase 57 Total Protein 6.0 L Albumin 3.6 Quality VTE Prophylaxis VTE prophylaxis: pharmacologic ordered
--- NOTE | 2024-03-07 10:08 | PM.CNGS ---
Assessment and Plan Assessment and plan (1) Chronic stasis dermatitis: Code(s): I87.2 - Venous insufficiency (chronic) (peripheral) Status: Acute Assessment and Plan: combination of venous insufficiency and peripheral vascular disease, at this point the patient does not have an acute infection or any drainable fluid collections or osteomyelitis, no acute surgical indications at this time, continue local wound care, will need to continue vascular workup History of Present Illness Consult details Consult date: 03/07/24 Reason for consult: wound care Requesting physician: Caroline Rawls APRN Narrative: The patient is a 74-year-old male well known to our service from previous consultations for wound care to his bilateral lower extremities. The patient is a known vasculopath with severe venous stasis disease in his bilateral lower extremities. The patient presented to the emergency department complaining of worsening pain in his right foot. He reports that he had an infection in his right foot over the last week or so. The patient is being evaluated by vascular surgery at an outside facility with plans for imaging in the near future. The patient reports that since he has been admitted his right foot seems to be much improved. Review of Systems Review of Systems: All systems reviewed & are unremarkable except as noted in HPI and below PMFSH Past Medical History Medical History Atrial fibrillation Chronic acquired lymphedema Chronic anemia Chronic congestive heart failure Echocardiogram in May 2021 was technically difficult and showed normal LV systolic function with an EF of 60 to 65%, severely enlarged RV chamber with moderate to severely reduced RV systolic function, severe biatrial enlargement, and moderate pulmonary hypertension. Chronic kidney disease Chronic low back pain Chronic venous insufficiency Dyslipidemia Environmental allergies Essential (primary) hypertension GERD without esophagitis Gout Hypothyroidism Lymphedema of both lower extremities Morbid obesity with body mass index (BMI) of 40.0 or higher Neuropathic pain Obstructive sleep apnea Ocular rosacea Peripheral polyneuropathy Peripheral vascular disease Rosacea Sepsis Surgical History Surgical History H/O eye surgery (~2005) [id number] [facility] History of carpal tunnel release History of cholecystectomy (2008) History of discectomy (2012) History of foot surgery Left Foot History of rotator cuff surgery Bilateral. History of thoracic surgery Pericardial effusion s/p pericardial window thought secondary to minoxidil, in 2011 at [facility]. Family History Family History Father Cardiovascular disease Grandparent Cancer Mother COPD (chronic obstructive pulmonary disease) Social History Social History Social History: Surrogate medical decision maker: Shyla Hurst, daughter. Code status: Full code. Smoking packs per day: 2 Smoking cigarettes per day: 40.0 Years smoked: 20 Smoking pack-years: 40.00 Smoking status: Never smoker Tobacco type: cigarettes Second hand tobacco smoke exposure: No Additional smoking assessment comments: 1979 Alcohol intake: never Alcohol use details: One beer daily. Substance use: never Substance use type: does not use Do You Feel Safe in your Home?: Yes Lack of Transportation: No Lack of Food: Never True Current Housing: I Have Housing Concerned About Future Housing: No Difficulty Paying Gas/Electric Bills: No Difficulty Paying for Meds: No Currently Unemployed: No Education: High School Diploma/GED Difficulty w/ Childcare or Family Care: No Living arrangements: alone Additional living arrangements comments: Lives in own home in [place]. Uses a motorized scooter and transfers with slide board. Occupation/Education: retired Additional occupation/education comments: Retired. 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 Spiritual care concerns: No Meds Home Medications and Allergies Home Medications Medication Instructions Recorded Confirmed Type loratadine 10 mg tablet (Claritin) 10 mg PO DAILY 07/12/20 03/05/24 History polyethylene glycol 3350 17 17 g PO DAILY PRN Constipation 06/02/21 03/05/24 History gram/dose oral powder (Miralax) apixaban 5 mg tablet (Eliquis) 5 mg PO Q12HR #180 tabs 01/19/22 03/05/24 Rx metoprolol tartrate 50 mg tablet 50 mg PO Q12HR #180 tabs 01/19/22 03/05/24 Rx acetazolamide 250 mg tablet 250 mg PO DAILY 11/19/22 03/05/24 History fluticasone propionate 50 1 spray intranasal DAILY PRN 11/19/22 03/05/24 History mcg/actuation nasal Congestion spray,suspension (Flonase Allergy Relief) minoxidil 10 mg tablet 10 mg PO DAILY 11/19/22 03/05/24 History lanolin alcohols-mineral 1 applic topical BID #113 grams 03/25/23 03/05/24 Rx oil-w.petrolatum-ceresin topical cream (Minerin Creme topical) spironolactone 25 mg tablet 25 mg PO DAILY #30 tabs 04/06/23 03/05/24 Rx tamsulosin 0.4 mg capsule 0.4 mg PO QAM #90 caps 04/06/23 03/05/24 Rx docusate sodium 100 mg capsule 100 mg PO Q12H #30 caps 04/26/23 03/05/24 Rx metolazone 2.5 mg tablet 5 mg PO 4XW #30 tabs 06/26/23 03/05/24 Rx levothyroxine 200 mcg tablet 200 mcg PO DAILY 08/30/23 03/05/24 History calcitriol 0.25 mcg capsule 0.25 mcg PO 3XW #36 caps 10/30/23 03/05/24 Rx sennosides 8.6 mg-docusate sodium 1 tab-cap PO HS PRN CONSTIPATION 11/15/23 03/05/24 Rx 50 mg tablet (Senokot-S) #1 tablet allopurinol 100 mg tablet 100 mg PO DAILY@0800 #30 tabs 12/16/23 03/05/24 Rx acetaminophen 325 mg tablet 500 mg PO Q4H PRN Mild Pain (1-3) 01/15/24 03/05/24 History Or Fever bumetanide 1 mg tablet 1 mg PO TID 01/15/24 03/05/24 History nystatin 100,000 unit/gram topical 1 applic topical BID #60 grams 02/19/24 03/05/24 Rx powder gabapentin 300 mg capsule 300 mg PO TID #270 caps 02/25/24 03/05/24 Rx Allergies Allergy/AdvReac Type Severity Reaction Status Date / Time oxycodone [From OxyContin] Allergy Mild Nausea Verified 02/26/24 11:05 Sulfa (Sulfonamide Allergy Mild Rash Verified 02/26/24 11:05 Antibiotics) Penicillins Allergy Unknown SWELLING Verified 02/26/24 11:05 codeine AdvReac Mild N/V Verified 02/26/24 11:05 hydrocodone AdvReac Mild N/V Verified 02/26/24 11:05 tramadol AdvReac Mild Nausea Verified 02/26/24 11:05 Vital Signs Vital Signs - 24 hr 03/06/24 14:00 03/06/24 21:17 03/06/24 22:02 Temperature 36.7 C 36.8 C Pulse Rate 95 98 84 Respiratory Rate 18 22 H Blood Pressure 122/65 145/70 H Pulse Oximetry 97 96 03/07/24 06:00 Temperature 36.6 C Pulse Rate 94 Respiratory Rate 16 Blood Pressure 127/60 Pulse Oximetry 99 Exam Const: General: cooperative, comfortable, no acute distress and ill appearing HENMT: Head: normal to inspection, normocephalic and atraumatic Eyes: General: appearance normal, both eyes and all related structures Neck: Neck: normal visual inspection, full ROM and no lymphadenopathy Resp: Auscultation: clear to auscultation bilaterally Cardio: Rate: regular rate Rhythm: regular rhythm GI: Inspection: normal to inspection Skin: General skin exam: normal color and no rashes or lesions noted Neuro: General: patient oriented x3 Extrem: General: edema Other: severe changes of venous stasis, peripheral vascular disease, both feet examined and no acute infection or drainable collections noted, well documented and reviewed with wound care photos Results Labs 03/07/24 06:11 03/07/24 06:11 Labs: Abnormal lab results 03/07/24 Range/Units 06:11 WBC 10.2 H (4.5-10.0) K/mm3 RBC 3.19 L (4.6-6.20) M/mm3 Hgb 8.9 L (14.0-18.0) g/dL Hct 29.0 L (42.0-52.0) % MCHC 30.7 L (32-36) g/dl Immature Gran % (Auto) 1.6 H (0-0.5) % Neut % (Auto) 82.2 H (45.5-73.1) % Lymph % (Auto) 4.0 L (18.3-44.2) % Lymph # (Auto) 0.41 L (0.9-3.2) K/mm3 Crane # (Auto) 0.8 H (0.1-0.6) K/mm3 Eos # (Auto) 0.4 H (0-0.3) K/mm3 Abs Immat Gran (auto) 0.16 H (0.00-0.031) K/mm3 Absolute Neuts (auto) 8.4 H (1.3-6.7) K/mm3 Sodium 134 L (137-145) mmol/L Potassium 3.3 L (3.4-5.0) mmol/L BUN 39 H (9-20) mg/dL Creatinine 2.30 H (0.7-1.3) mg/dL Estimated GFR 28 L (59 - ) Glucose 117 H (65-110) mg/dL Total Protein 6.0 L (6.3-8.2) g/dL Diabetes panel 03/07/24 Range/Units 06:11 Sodium 134 L (137-145) mmol/L Potassium 3.3 L (3.4-5.0) mmol/L Chloride 98 (98-107) mmol/L Carbon Dioxide 29 (22-30) mmol/L BUN 39 H (9-20) mg/dL Creatinine 2.30 H (0.7-1.3) mg/dL Glucose 117 H (65-110) mg/dL Calcium 8.5 (8.4-10.2) mg/dL AST 17 (17-59) U/L ALT 11 (6-50) U/L Alkaline Phosphatase 57 (38-126) U/L Total Protein 6.0 L (6.3-8.2) g/dL Albumin 3.6 (3.5-5.1) g/dL Calcium panel 03/07/24 Range/Units 06:11 Calcium 8.5 (8.4-10.2) mg/dL Albumin 3.6 (3.5-5.1) g/dL Pituitary panel 03/07/24 Range/Units 06:11 Sodium 134 L (137-145) mmol/L Potassium 3.3 L (3.4-5.0) mmol/L Chloride 98 (98-107) mmol/L Carbon Dioxide 29 (22-30) mmol/L BUN 39 H (9-20) mg/dL Creatinine 2.30 H (0.7-1.3) mg/dL Glucose 117 H (65-110) mg/dL Calcium 8.5 (8.4-10.2) mg/dL Adrenal panel 03/07/24 Range/Units 06:11 Sodium 134 L (137-145) mmol/L Potassium 3.3 L (3.4-5.0) mmol/L Chloride 98 (98-107) mmol/L Carbon Dioxide 29 (22-30) mmol/L BUN 39 H (9-20) mg/dL Creatinine 2.30 H (0.7-1.3) mg/dL Glucose 117 H (65-110) mg/dL Calcium 8.5 (8.4-10.2) mg/dL Total Bilirubin 0.6 (0.2-1.3) mg/dL AST 17 (17-59) U/L ALT 11 (6-50) U/L Alkaline Phosphatase 57 (38-126) U/L Total Protein 6.0 L (6.3-8.2) g/dL Albumin 3.6 (3.5-5.1) g/dL All other labs normal. Imaging Additional studies: all lower extremity imaging reviewed
--- NOTE | 2024-03-07 10:55 | PCOTNOTE ---
Attempted OT evaluation. Pt. reports too much pain in right foot to move and stand. Request to come back tomorrow. Will continue to follow.
[2024-03-07 11:13] LABS: CRP 13.2 mg/dL (<1.0)
[2024-03-07 12:21] LABS: Erythrocyte Sedimentation Rate > 140 mm/hr (0-20)
--- NOTE | 2024-03-07 13:06 | PCPTNOTE ---
Patient reports he is still in too much pain. He states nursing has added a muscle relaxer to his regimen and that is helping. Patient is hopeful that he has a winning cocktail when therapy comes back tomorrow.
[2024-03-07 14:00] VITALS: BP 126/66; PULSE 90; RESP 18; TEMP 36.9; O2SAT 96
[2024-03-07 21:04] VITALS: BP 102/60; PULSE 97; RESP 20; TEMP 38.2; O2SAT 97
[2024-03-07 21:15] VITALS: PULSE 84
[2024-03-08 01:32] LABS: Vancomycin Trough 9.8 ug/mL (10.0-20.0)
[2024-03-08] MEDS: VANCOMYCIN 1,500 MG/NS 500 ML 1,500 MG/500 ML BAG 150 MG IVPB (02:38)
[2024-03-08] MEDS: HYDROmorphone HCL INJ (*CRX) 1 MG/ML SYR IV PUSH (04:55)
[2024-03-08] MEDS: LEVOTHYROXINE SODIUM 100 MCG TABLET 200 MCG PO (05:31)
[2024-03-08] MEDS: CYCLOBENZAPRINE HCL 5 MG TABLET PO ×3 (05:31→22:06)
[2024-03-08 06:00] VITALS: BP 123/69; PULSE 86; RESP 20; TEMP 37.1; O2SAT 95
[2024-03-08 06:24] LABS: Basophils Absolute Auto 0.1 K/mm3 (0.0-0.1); Basophils Percent Auto 0.8 % (0.2-1.2); Eosinophils Absolute Auto 0.4 K/mm3 (0-0.3); Eosinophils Percent Auto 3.9 % (0-4.4); Hematocrit 29.1 % (42.0-52.0); Hemoglobin 9.1 g/dL (14.0-18.0); Lymphocytes Absolute Auto 0.45 K/mm3 (0.9-3.2); Lymphocytes Percent Auto 4.5 % (18.3-44.2); Mean Corpuscular HGB Conc 31.3 g/dl (32-36); Mean Corpuscular Hemoglobin 27.9 pg (26-34); Mean Corpuscular Volume 89.3 fl (80-100); Mean Platelet Volume 9.6 fl (7.4-10.4); Monocytes Absolute Auto 0.7 K/mm3 (0.1-0.6); Monocytes Percent Auto 7.3 % (2.6-8.5); Neutrophils Absolute Auto 8.1 K/mm3 (1.3-6.7); Neutrophils Percent Auto 81.5 % (45.5-73.1); Nucleated Red Blood Cells Perc 0.2 % (0.0-0.2); Platelet Count Result 370 k/mm3 (150-375); Red Blood Count 3.26 M/mm3 (4.6-6.20); Red Cell Distribution Width 14.2 % (11.5-14.5); White Blood Count 9.9 K/mm3 (4.5-10.0)
[2024-03-08 06:38] LABS: Alanine Aminotransferase 11 U/L (6-50); Albumin Level 3.8 g/dL (3.5-5.1); Alkaline Phosphatase 58 U/L (38-126); Anion Gap 6 mmol/L (4-12); Aspartate Amino Transferase 17 U/L (17-59); Bilirubin,Total 0.4 mg/dL (0.2-1.3); Blood Urea Nitrogen 40 mg/dL (9-20); Calcium 8.7 mg/dL (8.4-10.2); Carbon Dioxide 31 mmol/L (22-30); Chloride 95 mmol/L (98-107); Estimated CRCL calculation 40 ml/min; Estimated Glomerular Filt Rate 29; Glucose 110 mg/dL (65-110); Magnesium 2.1 mg/dL (1.6-2.3); Potassium 3.2 mmol/L (3.4-5.0); Sodium 132 mmol/L (137-145)
--- NOTE | 2024-03-08 07:26 | P.PNIM_ITS ---
Progress Note: A&P Assessment and Plan (1) Venous stasis ulcer of right lower extremity: Code(s): I83.019 - Varicose veins of right lower extremity with ulcer of unspecified site; L97.919 - Non-pressure chronic ulcer of unspecified part of right lower leg with unspecified severity Status: Acute Assessment and Plan: * initial white blood cell count 12.9 , ESR 95, CRP 15.8 * white blood cell count today 9.9 today * wound care consult * general surgery consulted for possible debridement * switched antibiotics to Doxycycline and Cefepime considering his last few wound cultures. * Blood cultures showing no growth to date on preliminary read * Wound culture pending * Continue dressing changes daily (2) JENA (acute kidney injury): Code(s): N17.9 - Acute kidney failure, unspecified Status: Chronic Assessment and Plan: * creatinine 2.20, EGFR 29 * baseline creatinine 1.7 to 2.2 * continue to trend (3) Chronic congestive heart failure: Qualifiers: Heart failure type: combined systolic and diastolic Qualified Code(s): I50.42 - Chronic combined systolic (congestive) and diastolic (congestive) heart failure Code(s): I50.9 - Heart failure, unspecified Status: Chronic Assessment and Plan: * last echo from 04/23/2022 reviewed which shown Normal LV systolic function with an estimated EF of 65-70%, grade 1 diastolic dysfunction. * continue Bumex, spironolactone, currently on metoprolol (4) Atrial fibrillation: Qualifiers: Atrial fibrillation type: longstanding persistent Qualified Code(s): I48.11 - Longstanding persistent atrial fibrillation Code(s): I48.91 - Unspecified atrial fibrillation Status: Acute Assessment and Plan: * continue Eliquis and metoprolol (5) BPH (benign prostatic hyperplasia): Code(s): N40.0 - Benign prostatic hyperplasia without lower urinary tract symptoms Status: Chronic Assessment and Plan: * continue Flomax Time Spent With Patient Time with patient: 25 - 35 minutes Subjective Date/time seen: 03/08/24 07:26 Interval history: Interval history: This is a 74-year-old male who presented to emergency room on 03/05/2024 for evaluation of right foot wound. Workup in the hospital included a foot x-ray which did not show any evidence of osteomyelitis, showed soft tissue swelling of the forefoot especially dorsally. Foot MRI was negative for osteitis or abscess, showed diffuse subcutaneous soft tissue edema, probable mild nonspecific myositis, mild degenerative changes in the toes. Ankle x-ray was negative for any acute osteomyelitis. Initial labs showed a white blood cell count of 12.9, hemoglobin 10.8, platelet count 439, ESR 95, sodium 135, chloride 97, creatinine 2.60, EGFR 24, C reactive protein 15.8, procalcitonin 0.4. UA was obtained and was negative. Blood cultures were obtained and currently showing no growth to date on preliminary read. EKG showed ectopic atrial rhythm with a rate of 79, QTC 517, with a right bundle branch block and left anterior fascicular block. Patient initially started on vancomycin and Rocephin. Wound Care and General surgery consulted. Subjective: Patient denies any new complaints overnight. He states he slept well overnight. Labs and cultures reviewed. Review of Systems Review of Systems: All systems reviewed & are unremarkable except as noted in HPI and below Constitutional: Constitutional: Reports as per HPI and Reports no additional constitutional complaints Eyes: Eyes: Reports as per HPI and Reports no additional eye complaints ENT: Reports system reviewed and no additional complaints, except as documented and Reports as per HPI Cardiovascular: Cardiovascular: Reports as per HPI and Reports no additional cardiovascular complaints Respiratory: Respiratory: Reports as per HPI and Reports no additional respiratory complaints Gastrointestinal: Gastrointestinal: Reports as per HPI and Reports no additional gastrointestinal complaints Genitourinary: Genitourinary: Reports no additional male genitourinary complaints and Reports as per HPI Musculoskeletal: Musculoskeletal: Reports no additional musculoskeletal complaints and Reports as per HPI Integumentary/Breasts: Skin/Breast: Reports system reviewed and no additional complaints, except as docu and Reports as per HPI Neurologic: Reports system reviewed and no additional complaints, except as documented and Reports as per HPI Psychiatric: Psychiatric: Reports no additional psychiatric complaints and Reports as per HPI Exam Narrative: General: In no acute distress, well nourished Cardiac: Normal S1 and S2. RRR, No murmur, gallops or friction rubs, peripheral pulses intact. Respiratory: Lungs clear to auscultation, no adventitious lung sounds, currently on room air Gastrointestinal: soft, non-distended, non-tender, normoactive bowel sounds. : voiding without difficulty. Skin: Purulent drainage from multiple toes/ wound sites, dressing saturated, chronic venous stasis wounds Neuro: Alert and oriented x4 Objective Data Vital Signs Vital Signs: Vital Signs - 24 hr 03/07/24 14:00 03/07/24 08:00 03/07/24 21:04 Temperature 98.5 F 100.7 F H Pulse Rate 90 97 Respiratory Rate 18 20 Blood Pressure 126/66 102/60 Pulse Oximetry 96 97 Oxygen Delivery Room Air 03/07/24 21:15 03/07/24 21:30 03/08/24 03:09 Temperature Pulse Rate 84 Respiratory Rate Blood Pressure Pulse Oximetry Oxygen Delivery CPAP CPAP 03/08/24 06:00 Temperature 98.8 F Pulse Rate 86 Respiratory Rate 20 Blood Pressure 123/69 Pulse Oximetry 95 Oxygen Delivery Intake/Output Intake/Output: Intake & Output 03/05/24 03/06/24 03/07/24 03/08/24 23:59 23:59 23:59 23:59 Intake Total 1580 2570 1810 200 Output Total 1650 1650 2625 1150 Balance -70 920 -815 -950 Meds/Results Medications: Active Medications Generic Name Dose Route Start Last Admin Trade Name Freq PRN Reason Stop Dose Admin Acetaminophen 650 mg 03/05/24 01:12 03/05/24 12:24 Acetaminophen 325 Mg Tablet PO 650 mg Q4H PRN Administration Mild Pain (1-3) or Fever Hydrocodone Bitart/Acetaminophen 1 tab 03/05/24 12:46 03/07/24 16:49 Hydrocodone/Acetaminophen (*Crx) 5-325 Mg Tablet PO 1 tab Q4H PRN Administration Pain Rated 4-6 Hydrocodone Bitart/Acetaminophen 1 tab 03/05/24 12:46 03/07/24 21:14 Hydrocodone/Acetaminophen (*Crx) 10-325 Mg Tablet PO 1 tab Q4H PRN Administration Pain Rated 7-10 Acetazolamide 250 mg 03/05/24 09:00 03/07/24 08:31 Acetazolamide Tab 250 Mg Tablet PO 250 mg DAILY ANGELA Administration Allopurinol 100 mg 03/05/24 08:00 03/05/24 07:52 Allopurinol 100 Mg Tablet PO 100 mg DAILY@0800 ANGELA Administration Apixaban 5 mg 03/05/24 09:00 03/07/24 21:15 Apixaban 5 Mg Tablet PO 5 mg Q12HR ANGELA Administration Bumetanide 1 mg 03/05/24 09:00 03/07/24 16:49 Bumetanide 1 Mg Tablet PO 1 mg TID ANGELA Administration Calcitriol 0.25 mcg 03/06/24 09:00 03/06/24 08:56 Calcitriol 0.25 Mcg Capsule PO 0.25 mcg MoWeFr ANGELA Administration Cyclobenzaprine HCl 5 mg 03/05/24 14:00 03/08/24 05:31 Cyclobenzaprine Hcl 5 Mg Tablet PO 5 mg Q8H ANGELA Administration Docusate Sodium 100 mg 03/05/24 09:00 03/07/24 21:14 Docusate Sodium 100 Mg Capsule PO 100 mg Q12HR ANGELA Administration Fluticasone Propionate 1 spray 03/05/24 04:31 03/05/24 07:51 Fluticasone Propionate 0.05% Na Spr 16 Gm Btl (*Bkc) NASAL 1 spray DAILY PRN Administration Congestion Gabapentin 300 mg 03/05/24 09:00 03/07/24 16:49 Gabapentin 300 Mg Capsule PO 300 mg TID ANGELA Administration Hydromorphone HCl 1 mg 03/06/24 11:13 03/08/24 04:55 Hydromorphone Hcl Inj (*Crx) 1 Mg/Ml Syr IV PUSH 1 mg Q3H PRN Administration Breakthrough pain Vancomycin HCl 1,500 mg in 500 mls @ 250 mls/hr 03/05/24 02:00 03/08/24 02:38 Vancomycin 1,500 Mg/Ns 500 Ml IVPB 150 mls/hr Q36H ANGELA Administration Ceftriaxone Sodium 2 gm in 100 mls @ 200 mls/hr 03/05/24 14:00 03/07/24 08:32 Rocephin 2 Gm/Ns 100 Ml IVPB 200 mls/hr QAM ANGELA Administration Levothyroxine Sodium 200 mcg 03/05/24 06:30 03/08/24 05:31 Levothyroxine Sodium 100 Mcg Tablet PO 200 mcg DAILY@0630 ANGELA Administration Loratadine 10 mg 03/05/24 09:00 03/07/24 08:31 Loratadine 10 Mg Tablet PO 10 mg DAILY ANGELA Administration Metolazone 5 mg 03/06/24 09:00 03/07/24 08:35 Metolazone 5 Mg Tablet PO 5 mg MoWeFrSa ANGELA Administration Metoprolol Tartrate 50 mg 03/05/24 09:00 03/07/24 21:15 Metoprolol Tartrate 50 Mg Tab PO 50 mg Q12HR ANGELA Administration Minoxidil 10 mg 03/05/24 09:00 03/07/24 08:32 Minoxidil 10 Mg Tablet PO 10 mg DAILY ANGELA Administration Multi-Ingred Cream/Lotion/Oil/Oint 1 applic 03/05/24 09:00 03/07/24 16:49 Eucerin Cream 120 Gm Jar TOPICAL 1 applic BID ANGELA Administration Ondansetron HCl 4 mg 03/05/24 01:12 03/05/24 13:42 Ondansetron Inj 4 Mg/2 Ml Vial IV PUSH 4 mg Q4H PRN Administration Nausea Polyethylene Glycol 17 gm 03/05/24 04:31 03/05/24 07:53 Polyethylene Glycol 3350 17 Gm Powd.Pack PO 17 gm DAILY PRN Administration Constipation Senna/Docusate Sodium 1 tab 03/05/24 04:31 Senna/Docusate Sodium Tablet PO HS PRN CONSTIPATION Spironolactone 25 mg 03/05/24 09:00 03/07/24 08:31 Spironolactone 25 Mg Tablet PO 25 mg DAILY ANGELA Administration Tamsulosin HCl 0.4 mg 03/05/24 09:00 03/07/24 08:31 Tamsulosin Hcl 0.4 Mg Capsule PO 0.4 mg QAM ANGELA Administration Radiology Results: ITS Impressions Foot X-Ray 03/05/24 05:36 Impression: No definite radiographic evidence for osteomyelitis. Soft tissue swelling of the forefoot, especially dorsally. Foot MRI 03/06/24 13:53 IMPRESSION: No evidence for osteitis or abscess. Prominent, diffuse subcutaneous soft tissue edema. Probable mild nonspecific myositis. Mild degenerative changes in the toes. Ankle MRI 03/06/24 14:40 IMPRESSION: 1. No evidence of osteomyelitis. Labs Labs: Laboratory Results - last 24 hr 03/07/24 03/07/24 03/08/24 06:11 10:23 00:55 WBC 10.2 H RBC 3.19 L Hgb 8.9 L Hct 29.0 L MCV 90.9 MCH 27.9 MCHC 30.7 L RDW 14.2 Plt Count 362 MPV 9.9 Immature Gran % (Auto) 1.6 H Neut % (Auto) 82.2 H Lymph % (Auto) 4.0 L [place] % (Auto) 7.9 Eos % (Auto) 3.6 Baso % (Auto) 0.7 Lymph # (Auto) 0.41 L [place] # (Auto) 0.8 H Eos # (Auto) 0.4 H Baso # (Auto) 0.1 Abs Immat Gran (auto) 0.16 H Absolute Neuts (auto) 8.4 H Absolute Nucleated RBC 0.000 Nucleated RBC % 0.0 ESR > 140 H Sodium Potassium Chloride Carbon Dioxide Anion Gap BUN Creatinine Estim Creat Clear Calc Estimated GFR Glucose Calcium Magnesium Total Bilirubin AST ALT Alkaline Phosphatase C-Reactive Protein 13.2 H Total Protein Albumin Vancomycin Trough 9.8 L 03/08/24 06:05 WBC 9.9 RBC 3.26 L Hgb 9.1 L Hct 29.1 L MCV 89.3 MCH 27.9 MCHC 31.3 L RDW 14.2 Plt Count 370 MPV 9.6 Immature Gran % (Auto) 2.0 H Neut % (Auto) 81.5 H Lymph % (Auto) 4.5 L [place] % (Auto) 7.3 Eos % (Auto) 3.9 Baso % (Auto) 0.8 Lymph # (Auto) 0.45 L [place] # (Auto) 0.7 H Eos # (Auto) 0.4 H Baso # (Auto) 0.1 Abs Immat Gran (auto) 0.20 H Absolute Neuts (auto) 8.1 H Absolute Nucleated RBC 0.020 H Nucleated RBC % 0.2 ESR Sodium 132 L Potassium 3.2 L Chloride 95 L Carbon Dioxide 31 H Anion Gap 6 BUN 40 H Creatinine 2.20 H Estim Creat Clear Calc 40 Estimated GFR 29 L Glucose 110 Calcium 8.7 Magnesium 2.1 Total Bilirubin 0.4 AST 17 ALT 11 Alkaline Phosphatase 58 C-Reactive Protein Total Protein 6.0 L Albumin 3.8 Vancomycin Trough Quality VTE Prophylaxis VTE prophylaxis: pharmacologic ordered
[2024-03-08] MEDS: LORATADINE 10 MG TABLET PO (09:14)
[2024-03-08] MEDS: POTASSIUM CHLORIDE 20 MEQ ER TABLET 40 MEQ PO (09:14)
[2024-03-08] MEDS: SPIRONOLACTONE 25 MG TABLET PO (09:14)
[2024-03-08 09:15] VITALS: PULSE 88
[2024-03-08] MEDS: DOCUSATE SODIUM 100 MG CAPSULE PO ×2 (09:15→22:07)
[2024-03-08] MEDS: APIXABAN 5 MG TABLET PO ×2 (09:15→22:06)
[2024-03-08] MEDS: METOPROLOL TARTRATE 50 MG TAB PO ×2 (09:15→22:06)
[2024-03-08] MEDS: TAMSULOSIN HCL 0.4 MG CAPSULE PO (09:15)
[2024-03-08] MEDS: acetaZOLAMIDE TAB 250 MG TABLET PO (09:15)
[2024-03-08] MEDS: BUMETANIDE 1 MG TABLET PO ×3 (09:15→17:02)
[2024-03-08] MEDS: cefTRIAXone 2 GM/NS 100 ML 2 GM/100 ML BAG IVPB (09:15)
[2024-03-08] MEDS: GABAPENTIN 300 MG CAPSULE PO ×3 (09:16→17:02)
[2024-03-08] MEDS: HYDROcodone/acetaminophen (*CRX) 10-325 MG TABLET 1 TAB PO ×3 (09:16→22:07)
[2024-03-08] MEDS: EUCERIN CREAM 120 GM JAR 1 APPLIC TOPICAL ×2 (09:16→17:03)
[2024-03-08] MEDS: minoxidiL 10 MG TABLET PO (09:19)
--- NOTE | 2024-03-08 11:10 | PM.PNGS ---
Progress Note: A&P Assessment and Plan (1) Venous stasis ulcer of right lower extremity: Code(s): I83.019 - Varicose veins of right lower extremity with ulcer of unspecified site; L97.919 - Non-pressure chronic ulcer of unspecified part of right lower leg with unspecified severity Status: Acute Assessment and Plan: continue local wound care, leukocytosis completely resolved with no signs or symptoms of active infection, imaging with no evidence of osteomyelitis or drainable fluid collections, will need continued vascular workup, continue compression and elevation Subjective Subjective Date/Time Seen: 03/08/24 11:10 Interval history: no acute issues, reports R foot still c pain but somewhat improved Review of Systems Review of Systems: All systems reviewed & are unremarkable except as noted in HPI and below Exam Const: General: cooperative, no acute distress and ill appearing Resp: Auscultation: diminished lung sounds Cardio: Rate: regular rate Rhythm: regular rhythm GI: Inspection: normal to inspection Extrem: Other: R foot - swelling and cellulitis improved, no s/s active infection, changes consistent with severe venous stasis Objective Data Vital Signs Vital Signs: Vital Signs - 24 hr 03/07/24 14:00 03/07/24 21:04 03/07/24 21:15 Temperature 36.9 C 38.2 C H Pulse Rate 90 97 84 Respiratory Rate 18 20 Blood Pressure 126/66 102/60 Pulse Oximetry 96 97 Oxygen Delivery 03/07/24 21:30 03/08/24 03:09 03/08/24 06:00 Temperature 37.1 C Pulse Rate 86 Respiratory Rate 20 Blood Pressure 123/69 Pulse Oximetry 95 Oxygen Delivery CPAP CPAP 03/08/24 09:15 Temperature Pulse Rate 88 Respiratory Rate Blood Pressure Pulse Oximetry Oxygen Delivery Intake/Output Intake/Output: Intake & Output 03/05/24 03/06/24 03/07/24 03/08/24 23:59 23:59 23:59 23:59 Intake Total 1580 2570 1910 440 Output Total 1650 1650 2625 1850 Balance -70 699 -854 -4142 Meds/Results Medications: Active Medications Generic Name Dose Route Start Last Admin Trade Name Freq PRN Reason Stop Dose Admin Acetaminophen 650 mg 03/05/24 01:12 03/05/24 12:24 Acetaminophen 325 Mg Tablet PO 650 mg Q4H PRN Administration Mild Pain (1-3) or Fever Hydrocodone Bitart/Acetaminophen 1 tab 03/05/24 12:46 03/07/24 16:49 Hydrocodone/Acetaminophen (*Crx) 5-325 Mg Tablet PO 1 tab Q4H PRN Administration Pain Rated 4-6 Hydrocodone Bitart/Acetaminophen 1 tab 03/05/24 12:46 03/08/24 09:16 Hydrocodone/Acetaminophen (*Crx) 10-325 Mg Tablet PO 1 tab Q4H PRN Administration Pain Rated 7-10 Acetazolamide 250 mg 03/05/24 09:00 03/08/24 09:15 Acetazolamide Tab 250 Mg Tablet PO 250 mg DAILY ANG[facility]A Administration Allopurinol 100 mg 03/05/24 08:00 03/05/24 07:52 Allopurinol 100 Mg Tablet PO 100 mg DAILY@0800 ANG[facility]A Administration Apixaban 5 mg 03/05/24 09:00 03/08/24 09:15 Apixaban 5 Mg Tablet PO 5 mg Q12HR ANGELA Administration Bumetanide 1 mg 03/05/24 09:00 03/08/24 09:15 Bumetanide 1 Mg Tablet PO 1 mg TID ANGELA Administration Calcitriol 0.25 mcg 03/06/24 09:00 03/06/24 08:56 Calcitriol 0.25 Mcg Capsule PO 0.25 mcg MoWeFr ANGELA Administration Cyclobenzaprine HCl 5 mg 03/05/24 14:00 03/08/24 05:31 Cyclobenzaprine Hcl 5 Mg Tablet PO 5 mg Q8H ANGELA Administration Docusate Sodium 100 mg 03/05/24 09:00 03/08/24 09:15 Docusate Sodium 100 Mg Capsule PO 100 mg Q12HR ANGELA Administration Fluticasone Propionate 1 spray 03/05/24 04:31 03/05/24 07:51 Fluticasone Propionate 0.05% Na Spr 16 Gm Btl (*Bkc) NASAL 1 spray DAILY PRN Administration Congestion Gabapentin 300 mg 03/05/24 09:00 03/08/24 09:16 Gabapentin 300 Mg Capsule PO 300 mg TID ANGELA Administration Hydromorphone HCl 1 mg 03/06/24 11:13 03/08/24 04:55 Hydromorphone Hcl Inj (*Crx) 1 Mg/Ml Syr IV PUSH 1 mg Q3H PRN Administration Breakthrough pain Vancomycin HCl 1,500 mg in 500 mls @ 250 mls/hr 03/05/24 02:00 03/08/24 02:38 Vancomycin 1,500 Mg/Ns 500 Ml IVPB 150 mls/hr Q36H ANGELA Administration Ceftriaxone Sodium 2 gm in 100 mls @ 200 mls/hr 03/05/24 14:00 03/08/24 09:15 Rocephin 2 Gm/Ns 100 Ml IVPB 200 mls/hr QAM ANGELA Administration Levothyroxine Sodium 200 mcg 03/05/24 06:30 03/08/24 05:31 Levothyroxine Sodium 100 Mcg Tablet PO 200 mcg DAILY@0630 ANG[facility]A Administration Loratadine 10 mg 03/05/24 09:00 03/08/24 09:14 Loratadine 10 Mg Tablet PO 10 mg DAILY [facility] Administration Metolazone 5 mg 03/06/24 09:00 03/07/24 08:35 Metolazone 5 Mg Tablet PO 5 mg MoWeFrSa [facility] Administration Metoprolol Tartrate 50 mg 03/05/24 09:00 03/08/24 09:15 Metoprolol Tartrate 50 Mg Tab PO 50 mg Q12HR ANGELA Administration Minoxidil 10 mg 03/05/24 09:00 03/08/24 09:19 Minoxidil 10 Mg Tablet PO 10 mg DAILY [facility] Administration Multi-Ingred Cream/Lotion/Oil/Oint 1 applic 03/05/24 09:00 03/08/24 09:16 Eucerin Cream 120 Gm Jar TOPICAL 1 applic BID ANGELA Administration Ondansetron HCl 4 mg 03/05/24 01:12 03/05/24 13:42 Ondansetron Inj 4 Mg/2 Ml Vial IV PUSH 4 mg Q4H PRN Administration Nausea Polyethylene Glycol 17 gm 03/05/24 04:31 03/05/24 07:53 Polyethylene Glycol 3350 17 Gm Powd.Pack PO 17 gm DAILY PRN Administration Constipation Senna/Docusate Sodium 1 tab 03/05/24 04:31 Senna/Docusate Sodium Tablet PO HS PRN CONSTIPATION Spironolactone 25 mg 03/05/24 09:00 03/08/24 09:14 Spironolactone 25 Mg Tablet PO 25 mg DAILY [facility] Administration Tamsulosin HCl 0.4 mg 03/05/24 09:00 03/08/24 09:15 Tamsulosin Hcl 0.4 Mg Capsule PO 0.4 mg QAM ANG[facility]A Administration Radiology Results: ITS Impressions Foot X-Ray 03/05/24 05:36 Impression: No definite radiographic evidence for osteomyelitis. Soft tissue swelling of the forefoot, especially dorsally. Foot MRI 03/06/24 13:53 IMPRESSION: No evidence for osteitis or abscess. Prominent, diffuse subcutaneous soft tissue edema. Probable mild nonspecific myositis. Mild degenerative changes in the toes. Ankle MRI 03/06/24 14:40 IMPRESSION: 1. No evidence of osteomyelitis. Labs Labs: Laboratory Results - last 24 hr 03/07/24 03/08/24 03/08/24 10:23 00:55 06:05 WBC 9.9 RBC 3.26 L Hgb 9.1 L Hct 29.1 L MCV 89.3 MCH 27.9 MCHC 31.3 L RDW 14.2 Plt Count 370 MPV 9.6 Immature Gran % (Auto) 2.0 H Neut % (Auto) 81.5 H Lymph % (Auto) 4.5 L [place] % (Auto) 7.3 Eos % (Auto) 3.9 Baso % (Auto) 0.8 Lymph # (Auto) 0.45 L [place] # (Auto) 0.7 H Eos # (Auto) 0.4 H Baso # (Auto) 0.1 Abs Immat Gran (auto) 0.20 H Absolute Neuts (auto) 8.1 H Absolute Nucleated RBC 0.020 H Nucleated RBC % 0.2 ESR > 140 H Sodium 132 L Potassium 3.2 L Chloride 95 L Carbon Dioxide 31 H Anion Gap 6 BUN 40 H Creatinine 2.20 H Estim Creat Clear Calc 40 Estimated GFR 29 L Glucose 110 Calcium 8.7 Magnesium 2.1 Total Bilirubin 0.4 AST 17 ALT 11 Alkaline Phosphatase 58 C-Reactive Protein 13.2 H Total Protein 6.0 L Albumin 3.8 Vancomycin Trough 9.8 L
--- NOTE | 2024-03-08 11:32 | PCPTNOTE ---
Attempted to see for physical therapy evaluation, pt refused stating he is in too much pain today and states he will participate tomorrow. This is pt's fourth consecutive day of therapy refusal. Orders will be d/c'ed at this time.
--- NOTE | 2024-03-08 11:55 | PCOTNOTE ---
Attempted OT evaluation. Pt. again refused due to pain in his right foot. OT evaluation orders will be discharged at this time due to 4 refusals.
[2024-03-08] MEDS: CEFEPIME 1 GM/NS 50 ML 1 GM/50 ML BAG IVPB ×2 (12:36→23:40)
[2024-03-08] MEDS: DOXYCYCLINE HYCLATE 100 MG TABLET PO ×2 (12:36→22:06)
[2024-03-08 13:14] VITALS: BP 130/69; PULSE 95; RESP 18; TEMP 38.3; O2SAT 96
[2024-03-08] MEDS: HYDROcodone/acetaminophen (*CRX) 5-325 MG TABLET 1 TAB PO (17:02)
[2024-03-08 19:55] VITALS: BP 123/68; PULSE 96; RESP 20; TEMP 37.5; O2SAT 99
[2024-03-08 22:06] VITALS: PULSE 96
[2024-03-09 06:00] VITALS: BP 112/63; PULSE 82; RESP 20; TEMP 36.3; O2SAT 96
[2024-03-09] MEDS: LEVOTHYROXINE SODIUM 100 MCG TABLET 200 MCG PO (06:10)
[2024-03-09] MEDS: CYCLOBENZAPRINE HCL 5 MG TABLET PO ×3 (06:10→20:33)
[2024-03-09] MEDS: HYDROcodone/acetaminophen (*CRX) 10-325 MG TABLET 1 TAB PO ×2 (06:14→13:36)
[2024-03-09 06:33] LABS: Basophils Absolute Auto 0.1 K/mm3 (0.0-0.1); Basophils Percent Auto 0.7 % (0.2-1.2); Eosinophils Absolute Auto 0.4 K/mm3 (0-0.3); Hematocrit 28.8 % (42.0-52.0); Lymphocytes Absolute Auto 0.54 K/mm3 (0.9-3.2); Lymphocytes Percent Auto 5.5 % (18.3-44.2); Mean Corpuscular HGB Conc 31.3 g/dl (32-36); Mean Corpuscular Hemoglobin 27.9 pg (26-34); Mean Corpuscular Volume 89.2 fl (80-100); Monocytes Absolute Auto 0.8 K/mm3 (0.1-0.6); Neutrophils Absolute Auto 7.9 K/mm3 (1.3-6.7); Neutrophils Percent Auto 79.8 % (45.5-73.1); Nucleated Red Blood Cells Perc 0.2 % (0.0-0.2); Platelet Count Result 380 k/mm3 (150-375); Red Blood Count 3.23 M/mm3 (4.6-6.20); Red Cell Distribution Width 14.2 % (11.5-14.5); White Blood Count 9.9 K/mm3 (4.5-10.0)
[2024-03-09 06:50] LABS: Alanine Aminotransferase 11 U/L (6-50); Albumin Level 3.6 g/dL (3.5-5.1); Alkaline Phosphatase 59 U/L (38-126); Anion Gap 9 mmol/L (4-12); Aspartate Amino Transferase 16 U/L (17-59); Bilirubin,Total 0.5 mg/dL (0.2-1.3); Blood Urea Nitrogen 41 mg/dL (9-20); Calcium 9.1 mg/dL (8.4-10.2); Carbon Dioxide 32 mmol/L (22-30); Chloride 92 mmol/L (98-107); Estimated CRCL calculation 42 ml/min; Estimated Glomerular Filt Rate 31; Glucose 101 mg/dL (65-110); Magnesium 2.2 mg/dL (1.6-2.3); Potassium 3.3 mmol/L (3.4-5.0); Sodium 133 mmol/L (137-145)
[2024-03-09] MEDS: APIXABAN 5 MG TABLET PO ×2 (09:03→20:33)
[2024-03-09] MEDS: TAMSULOSIN HCL 0.4 MG CAPSULE PO (09:03)
[2024-03-09] MEDS: BUMETANIDE 1 MG TABLET PO ×3 (09:03→17:12)
[2024-03-09] MEDS: LORATADINE 10 MG TABLET PO (09:03)
[2024-03-09] MEDS: GABAPENTIN 300 MG CAPSULE PO ×3 (09:03→17:12)
[2024-03-09] MEDS: METOPROLOL TARTRATE 50 MG TAB PO ×2 (09:03→20:33)
[2024-03-09] MEDS: EUCERIN CREAM 120 GM JAR 1 APPLIC TOPICAL ×2 (09:04→17:14)
[2024-03-09] MEDS: DOCUSATE SODIUM 100 MG CAPSULE PO ×2 (09:04→20:32)
[2024-03-09] MEDS: DOXYCYCLINE HYCLATE 100 MG TABLET PO ×2 (09:04→20:32)
[2024-03-09] MEDS: SPIRONOLACTONE 25 MG TABLET PO (09:04)
[2024-03-09] MEDS: acetaZOLAMIDE TAB 250 MG TABLET PO (09:04)
[2024-03-09] MEDS: calcitrioL 0.25 MCG CAPSULE PO (09:04)
[2024-03-09] MEDS: minoxidiL 10 MG TABLET PO (09:04)
[2024-03-09] MEDS: metOLazone 5 MG TABLET PO (09:04)
[2024-03-09] MEDS: CEFEPIME 1 GM/NS 50 ML 1 GM/50 ML BAG IVPB ×2 (11:14→23:57)
[2024-03-09] MEDS: HYDROmorphone HCL INJ (*CRX) 1 MG/ML SYR IV PUSH ×2 (11:24→20:29)
--- NOTE | 2024-03-09 11:42 | P.PNGS_ITS ---
Progress Note: A&P Assessment and Plan (1) Venous stasis ulcer of right lower extremity: Code(s): I83.019 - Varicose veins of right lower extremity with ulcer of unspecified site; L97.919 - Non-pressure chronic ulcer of unspecified part of right lower leg with unspecified severity Status: Acute Assessment and Plan: continue local wound care, compression, elevation, no indications for acute surgical intervention, will need to continue vascular workup as outpatient Subjective Subjective Date/Time Seen: 03/09/24 11:42 Interval history: no acute issues overnight, still complaining of right pain Review of Systems Review of Systems: All systems reviewed & are unremarkable except as noted in HPI and below Exam Const: General: cooperative, comfortable, no acute distress and ill appearing Resp: Auscultation: diminished lung sounds Cardio: Rate: regular rate Rhythm: regular rhythm GI: Inspection: normal to inspection Extrem: Other: bilateral extremity dressings clean dry and Objective Data Vital Signs Vital Signs: Vital Signs - 24 hr 03/08/24 13:14 03/08/24 19:55 03/08/24 22:06 Temperature 38.3 C H 37.5 C Pulse Rate 95 96 96 Respiratory Rate 18 20 Blood Pressure 130/69 123/68 Pulse Oximetry 96 99 03/09/24 06:00 Temperature 36.3 C L Pulse Rate 82 Respiratory Rate 20 Blood Pressure 112/63 Pulse Oximetry 96 Intake/Output Intake/Output: Intake & Output 03/06/24 03/07/24 03/08/24 03/09/24 23:59 23:59 23:59 23:59 Intake Total 2570 1910 1520 618 Output Total 1650 2625 2650 800 Balance 920 -715 -1130 -182 Meds/Results Medications: Active Medications Generic Name Dose Route Start Last Admin Trade Name Freq PRN Reason Stop Dose Admin Acetaminophen 650 mg 03/05/24 01:12 03/05/24 12:24 Acetaminophen 325 Mg Tablet PO 650 mg Q4H PRN Administration Mild Pain (1-3) or Fever Hydrocodone Bitart/Acetaminophen 1 tab 03/05/24 12:46 03/08/24 17:02 Hydrocodone/Acetaminophen (*Crx) 5-325 Mg Tablet PO 1 tab Q4H PRN Administration Pain Rated 4-6 Hydrocodone Bitart/Acetaminophen 1 tab 03/05/24 12:46 03/09/24 06:14 Hydrocodone/Acetaminophen (*Crx) 10-325 Mg Tablet PO 1 tab Q4H PRN Administration Pain Rated 7-10 Acetazolamide 250 mg 03/05/24 09:00 03/09/24 09:04 Acetazolamide Tab 250 Mg Tablet PO 250 mg DAILY ANGELA Administration Allopurinol 100 mg 03/05/24 08:00 03/05/24 07:52 Allopurinol 100 Mg Tablet PO 100 mg DAILY@0800 ANGELA Administration Apixaban 5 mg 03/05/24 09:00 03/09/24 09:03 Apixaban 5 Mg Tablet PO 5 mg Q12HR ANG[facility]A Administration Bumetanide 1 mg 03/05/24 09:00 03/09/24 09:03 Bumetanide 1 Mg Tablet PO 1 mg TID ANGELA Administration Calcitriol 0.25 mcg 03/06/24 09:00 03/09/24 09:04 Calcitriol 0.25 Mcg Capsule PO 0.25 mcg MoWeFr ANGELA Administration Cyclobenzaprine HCl 5 mg 03/05/24 14:00 03/09/24 06:10 Cyclobenzaprine Hcl 5 Mg Tablet PO 5 mg Q8H ANGELA Administration Docusate Sodium 100 mg 03/05/24 09:00 03/09/24 09:04 Docusate Sodium 100 Mg Capsule PO 100 mg Q12HR ANGELA Administration Doxycycline Hyclate 100 mg 03/08/24 11:15 03/09/24 09:04 Doxycycline Hyclate 100 Mg Tablet PO 100 mg Q12HR ANGELA Administration Fluticasone Propionate 1 spray 03/05/24 04:31 03/05/24 07:51 Fluticasone Propionate 0.05% Na Spr 16 Gm Btl (*Bkc) NASAL 1 spray DAILY PRN Administration Congestion Gabapentin 300 mg 03/05/24 09:00 03/09/24 09:03 Gabapentin 300 Mg Capsule PO 300 mg TID ANGELA Administration Hydromorphone HCl 1 mg 03/06/24 11:13 03/09/24 11:24 Hydromorphone Hcl Inj (*Crx) 1 Mg/Ml Syr IV PUSH 1 mg Q3H PRN Administration Breakthrough pain Cefepime HCl 1 gm in 50 mls @ 100 mls/hr 03/08/24 11:30 03/09/24 11:14 Maxipime 1 Gm/Ns 50 Ml IVPB 100 mls/hr 1100,2300 ANGELA Administration Levothyroxine Sodium 200 mcg 03/05/24 06:30 03/09/24 06:10 Levothyroxine Sodium 100 Mcg Tablet PO 200 mcg DAILY@0630 ANGELA Administration Loratadine 10 mg 03/05/24 09:00 03/09/24 09:03 Loratadine 10 Mg Tablet PO 10 mg DAILY [facility] Administration Metolazone 5 mg 03/06/24 09:00 03/09/24 09:04 Metolazone 5 Mg Tablet PO 5 mg MoWeFrSa ANGELA Administration Metoprolol Tartrate 50 mg 03/05/24 09:00 03/09/24 09:03 Metoprolol Tartrate 50 Mg Tab PO 50 mg Q12HR ANGELA Administration Minoxidil 10 mg 03/05/24 09:00 03/09/24 09:04 Minoxidil 10 Mg Tablet PO 10 mg DAILY [facility]A Administration Multi-Ingred Cream/Lotion/Oil/Oint 1 applic 03/05/24 09:00 03/09/24 09:04 Eucerin Cream 120 Gm Jar TOPICAL 1 applic BID ANGELA Administration Ondansetron HCl 4 mg 03/05/24 01:12 03/05/24 13:42 Ondansetron Inj 4 Mg/2 Ml Vial IV PUSH 4 mg Q4H PRN Administration Nausea Polyethylene Glycol 17 gm 03/05/24 04:31 03/05/24 07:53 Polyethylene Glycol 3350 17 Gm Powd.Pack PO 17 gm DAILY PRN Administration Constipation Senna/Docusate Sodium 1 tab 03/05/24 04:31 Senna/Docusate Sodium Tablet PO HS PRN CONSTIPATION Spironolactone 25 mg 03/05/24 09:00 03/09/24 09:04 Spironolactone 25 Mg Tablet PO 25 mg DAILY [facility] Administration Tamsulosin HCl 0.4 mg 03/05/24 09:00 03/09/24 09:03 Tamsulosin Hcl 0.4 Mg Capsule PO 0.4 mg QAM ANGELA Administration Radiology Results: ITS Impressions Foot X-Ray 03/05/24 05:36 Impression: No definite radiographic evidence for osteomyelitis. Soft tissue swelling of the forefoot, especially dorsally. Foot MRI 03/06/24 13:53 IMPRESSION: No evidence for osteitis or abscess. Prominent, diffuse subcutaneous soft tissue edema. Probable mild nonspecific myositis. Mild degenerative changes in the toes. Ankle MRI 03/06/24 14:40 IMPRESSION: 1. No evidence of osteomyelitis. Labs Labs: Laboratory Results - last 24 hr 03/09/24 05:21 WBC 9.9 RBC 3.23 L Hgb 9.0 L Hct 28.8 L MCV 89.2 MCH 27.9 MCHC 31.3 L RDW 14.2 Plt Count 380 H MPV 10.0 Immature Gran % (Auto) 2.0 H Neut % (Auto) 79.8 H Lymph % (Auto) 5.5 L [place] % (Auto) 8.0 Eos % (Auto) 4.0 Baso % (Auto) 0.7 Lymph # (Auto) 0.54 L [place] # (Auto) 0.8 H Eos # (Auto) 0.4 H Baso # (Auto) 0.1 Abs Immat Gran (auto) 0.20 H Absolute Neuts (auto) 7.9 H Absolute Nucleated RBC 0.020 H Nucleated RBC % 0.2 Sodium 133 L Potassium 3.3 L Chloride 92 L Carbon Dioxide 32 H Anion Gap 9 BUN 41 H Creatinine 2.10 H Estim Creat Clear Calc 42 Estimated GFR 31 L Glucose 101 Calcium 9.1 Magnesium 2.2 Total Bilirubin 0.5 AST 16 L ALT 11 Alkaline Phosphatase 59 Total Protein 6.0 L Albumin 3.6
[2024-03-09 14:00] VITALS: BP 121/62; PULSE 88; RESP 16; TEMP 36.6; O2SAT 97
--- NOTE | 2024-03-09 14:56 | P.PNIM_ITS ---
Progress Note: A&P Assessment and Plan (1) Venous stasis ulcer of right lower extremity: Code(s): I83.019 - Varicose veins of right lower extremity with ulcer of unspecified site; L97.919 - Non-pressure chronic ulcer of unspecified part of right lower leg with unspecified severity Status: Acute Assessment and Plan: Nonhealing wound to right foot. Patient reports 7 months. Initial white blood cell count 12.9 , ESR 95, CRP 15.8 US arterial duplex 12/03/23 showed at least moderate stenosis to multiple arteries 1. Increased velocity gradient between right popliteal artery and peroneal artery, consistent with at least moderate stenosis. 2. Arterial vascular flow not visualized in right anterior tibial artery or dorsalis pedis. 3. Increased velocity gradient between left superficial femoral artery and popliteal artery, consistent with at least moderate stenosis. 4. Increased velocity gradient between left popliteal artery and peroneal artery, consistent with at least moderate stenosis. 3. Increased velocity gradient between left anterior tibial artery and left dorsalis pedis, consistent with at least moderate stenosis. * wound care consult * general surgery consulted, no plan for OR currently * switched antibiotics to Doxycycline and Cefepime considering his last few wound cultures. * Blood cultures showing no growth to date * Wound culture pending * Continue dressing changes daily * Has follow up with vascular in April. He may need further intervention (stents or angioplasty) in order for wound to heal, if he is a candidate (2) JENA (acute kidney injury): Code(s): N17.9 - Acute kidney failure, unspecified Status: Chronic Assessment and Plan: * creatinine 2.20, EGFR 29 * baseline creatinine 1.7 to 2.2 * continue to trend * Potassium 3.3--give 20meq, recheck in AM. Potassium was normal (3) Chronic congestive heart failure: Qualifiers: Heart failure type: combined systolic and diastolic Qualified Code(s): I50.42 - Chronic combined systolic (congestive) and diastolic (congestive) heart failure Code(s): I50.9 - Heart failure, unspecified Status: Chronic Assessment and Plan: * last echo from 04/23/2022 reviewed which shown Normal LV systolic function with an estimated EF of 65-70%, grade 1 diastolic dysfunction. * continue Bumex, spironolactone, currently on metoprolol (4) Atrial fibrillation: Qualifiers: Atrial fibrillation type: longstanding persistent Qualified Code(s): I48.11 - Longstanding persistent atrial fibrillation Code(s): I48.91 - Unspecified atrial fibrillation Status: Acute Assessment and Plan: * continue Eliquis and metoprolol (5) BPH (benign prostatic hyperplasia): Code(s): N40.0 - Benign prostatic hyperplasia without lower urinary tract symptoms Status: Chronic Assessment and Plan: * continue Flomax Time Spent With Patient Time: 65 minutes Subjective Date/time seen: 03/09/24 14:56 Interval history: Overnight events: Pain to foot from wound General surgery following, no plan for OR On doxy and Cefepime Wound culture growing GNB's Reports several days of constipation, changing bowel regimen Hospital Course: This is a 74-year-old male who presented to emergency room on 03/05/2024 for evaluation of right foot wound. Workup in the hospital included a foot x-ray which did not show any evidence of osteomyelitis, showed soft tissue swelling of the forefoot especially dorsally. Foot MRI was negative for osteitis or abscess, showed diffuse subcutaneous soft tissue edema, probable mild nonspecific myositis, mild degenerative changes in the toes. Ankle x-ray was negative for any acute osteomyelitis. Initial labs showed a white blood cell count of 12.9, hemoglobin 10.8, platelet count 439, ESR 95, sodium 135, chloride 97, creatinine 2.60, EGFR 24, C reactive protein 15.8, procalcitonin 0.4. UA was obtained and was negative. Blood cultures were obtained and currently showing no growth to date on preliminary read. EKG showed ectopic atrial rhythm with a rate of 79, QTC 517, with a right bundle branch block and left anterior fascicular block. Patient initially started on vancomycin and Rocephin. Wound Care and General surgery consulted. JENA Creatinine 1.7-2.2 Afib on eliquis and metoprolol BPH on flomax Exam Narrative: General: In no acute distress, well nourished Cardiac: Normal S1 and S2. RRR, No murmur, gallops or friction rubs, peripheral pulses intact. Respiratory: Lungs clear to auscultation, no adventitious lung sounds, currently on room air Gastrointestinal: soft, non-distended, non-tender, normoactive bowel sounds. : voiding without difficulty. Skin: Purulent drainage from multiple toes/ wound sites, dressing saturated, chronic venous stasis wounds Neuro: Alert and oriented x4 Objective Data Vital Signs Vital Signs: Vital Signs - 24 hr 03/08/24 19:55 03/08/24 22:06 03/09/24 06:00 Temperature 99.5 F 97.4 F L Pulse Rate 96 96 82 Respiratory Rate 20 20 Blood Pressure 123/68 112/63 Pulse Oximetry 99 96 Oxygen Delivery 03/09/24 08:00 03/09/24 14:00 Temperature 97.8 F Pulse Rate 88 Respiratory Rate 16 Blood Pressure 121/62 Pulse Oximetry 97 Oxygen Delivery Room Air Intake/Output Intake/Output: Intake & Output 03/06/24 03/07/24 03/08/24 03/09/24 23:59 23:59 23:59 23:59 Intake Total 2570 1910 1520 858 Output Total 1650 2625 2650 800 Balance 433 -360 -8350 58 Meds/Results Medications: Active Medications Generic Name Dose Route Start Last Admin Trade Name Freq PRN Reason Stop Dose Admin Acetaminophen 650 mg 03/05/24 01:12 03/05/24 12:24 Acetaminophen 325 Mg Tablet PO 650 mg Q4H PRN Administration Mild Pain (1-3) or Fever Hydrocodone Bitart/Acetaminophen 1 tab 03/05/24 12:46 03/08/24 17:02 Hydrocodone/Acetaminophen (*Crx) 5-325 Mg Tablet PO 1 tab Q4H PRN Administration Pain Rated 4-6 Hydrocodone Bitart/Acetaminophen 1 tab 03/05/24 12:46 03/09/24 13:36 Hydrocodone/Acetaminophen (*Crx) 10-325 Mg Tablet PO 1 tab Q4H PRN Administration Pain Rated 7-10 Acetazolamide 250 mg 03/05/24 09:00 03/09/24 09:04 Acetazolamide Tab 250 Mg Tablet PO 250 mg DAILY ANGELA Administration Allopurinol 100 mg 03/05/24 08:00 03/05/24 07:52 Allopurinol 100 Mg Tablet PO 100 mg DAILY@0800 ANGELA Administration Apixaban 5 mg 03/05/24 09:00 03/09/24 09:03 Apixaban 5 Mg Tablet PO 5 mg Q12HR ANGELA Administration Bumetanide 1 mg 03/05/24 09:00 03/09/24 13:35 Bumetanide 1 Mg Tablet PO 1 mg TID ANGELA Administration Calcitriol 0.25 mcg 03/06/24 09:00 03/09/24 09:04 Calcitriol 0.25 Mcg Capsule PO 0.25 mcg MoWeFr [facility] Administration Cyclobenzaprine HCl 5 mg 03/05/24 14:00 03/09/24 13:35 Cyclobenzaprine Hcl 5 Mg Tablet PO 5 mg Q8H ANGELA Administration Docusate Sodium 100 mg 03/05/24 09:00 03/09/24 09:04 Docusate Sodium 100 Mg Capsule PO 100 mg Q12HR ANGELA Administration Doxycycline Hyclate 100 mg 03/08/24 11:15 03/09/24 09:04 Doxycycline Hyclate 100 Mg Tablet PO 100 mg Q12HR [facility] Administration Fluticasone Propionate 1 spray 03/05/24 04:31 03/05/24 07:51 Fluticasone Propionate 0.05% Na Spr 16 Gm Btl (*Bkc) NASAL 1 spray DAILY PRN Administration Congestion Gabapentin 300 mg 03/05/24 09:00 03/09/24 13:34 Gabapentin 300 Mg Capsule PO 300 mg TID [facility] Administration Hydromorphone HCl 1 mg 03/06/24 11:13 03/09/24 11:24 Hydromorphone Hcl Inj (*Crx) 1 Mg/Ml Syr IV PUSH 1 mg Q3H PRN Administration Breakthrough pain Cefepime HCl 1 gm in 50 mls @ 100 mls/hr 03/08/24 11:30 03/09/24 11:14 Maxipime 1 Gm/Ns 50 Ml IVPB 100 mls/hr 1100,2300 [facility] Administration Levothyroxine Sodium 200 mcg 03/05/24 06:30 03/09/24 06:10 Levothyroxine Sodium 100 Mcg Tablet PO 200 mcg DAILY@0630 [facility] Administration Loratadine 10 mg 03/05/24 09:00 03/09/24 09:03 Loratadine 10 Mg Tablet PO 10 mg DAILY [facility] Administration Metolazone 5 mg 03/06/24 09:00 03/09/24 09:04 Metolazone 5 Mg Tablet PO 5 mg Mo [facility] Administration Metoprolol Tartrate 50 mg 03/05/24 09:00 03/09/24 09:03 Metoprolol Tartrate 50 Mg Tab PO 50 mg Q12HR ANGELA Administration Minoxidil 10 mg 03/05/24 09:00 03/09/24 09:04 Minoxidil 10 Mg Tablet PO 10 mg DAILY [facility] Administration Multi-Ingred Cream/Lotion/Oil/Oint 1 applic 03/05/24 09:00 03/09/24 09:04 Eucerin Cream 120 Gm Jar TOPICAL 1 applic BID ANG[facility]A Administration Ondansetron HCl 4 mg 03/05/24 01:12 03/05/24 13:42 Ondansetron Inj 4 Mg/2 Ml Vial IV PUSH 4 mg Q4H PRN Administration Nausea Polyethylene Glycol 17 gm 03/05/24 04:31 03/05/24 07:53 Polyethylene Glycol 3350 17 Gm Powd.Pack PO 17 gm DAILY PRN Administration Constipation Senna/Docusate Sodium 1 tab 03/05/24 04:31 Senna/Docusate Sodium Tablet PO HS PRN CONSTIPATION Spironolactone 25 mg 03/05/24 09:00 03/09/24 09:04 Spironolactone 25 Mg Tablet PO 25 mg DAILY [facility] Administration Tamsulosin HCl 0.4 mg 03/05/24 09:00 03/09/24 09:03 Tamsulosin Hcl 0.4 Mg Capsule PO 0.4 mg QAM ANGELA Administration Radiology Results: ITS Impressions Foot X-Ray 03/05/24 05:36 Impression: No definite radiographic evidence for osteomyelitis. Soft tissue swelling of the forefoot, especially dorsally. Foot MRI 03/06/24 13:53 IMPRESSION: No evidence for osteitis or abscess. Prominent, diffuse subcutaneous soft tissue edema. Probable mild nonspecific myositis. Mild degenerative changes in the toes. Ankle MRI 03/06/24 14:40 IMPRESSION: 1. No evidence of osteomyelitis. Labs Labs: Laboratory Results - last 24 hr 03/09/24 05:21 WBC 9.9 RBC 3.23 L Hgb 9.0 L Hct 28.8 L MCV 89.2 MCH 27.9 MCHC 31.3 L RDW 14.2 Plt Count 380 H MPV 10.0 Immature Gran % (Auto) 2.0 H Neut % (Auto) 79.8 H Lymph % (Auto) 5.5 L [place] % (Auto) 8.0 Eos % (Auto) 4.0 Baso % (Auto) 0.7 Lymph # (Auto) 0.54 L [place] # (Auto) 0.8 H Eos # (Auto) 0.4 H Baso # (Auto) 0.1 Abs Immat Gran (auto) 0.20 H Absolute Neuts (auto) 7.9 H Absolute Nucleated RBC 0.020 H Nucleated RBC % 0.2 Sodium 133 L Potassium 3.3 L Chloride 92 L Carbon Dioxide 32 H Anion Gap 9 BUN 41 H Creatinine 2.10 H Estim Creat Clear Calc 42 Estimated GFR 31 L Glucose 101 Calcium 9.1 Magnesium 2.2 Total Bilirubin 0.5 AST 16 L ALT 11 Alkaline Phosphatase 59 Total Protein 6.0 L Albumin 3.6 Quality VTE Prophylaxis VTE prophylaxis: pharmacologic ordered Hospitalist MIPS Advance Care Plan I have confirmed that the patient's Advanced Care Plan is present, code status is documented, or surrogate decision maker is listed in patient medical record.: Yes Medication Reconciliation I have utilized all available resources to obtain, update and review the patients current medications (includes all prescriptions, OTC, herbals, cannabis, and nutritional supplements).: Yes
[2024-03-09] MEDS: POTASSIUM CHLORIDE 20 MEQ ER TABLET PO (20:20)
[2024-03-09] MEDS: SENNA/DOCUSATE SODIUM TABLET 2 TAB PO (20:32)
[2024-03-09 20:33] VITALS: PULSE 88
[2024-03-09 21:40] VITALS: BP 129/69; PULSE 94; RESP 20; TEMP 37.3; O2SAT 97
[2024-03-10 06:00] VITALS: BP 108/61; PULSE 83; RESP 20; TEMP 36.7; O2SAT 100
[2024-03-10] MEDS: LEVOTHYROXINE SODIUM 100 MCG TABLET 200 MCG PO (06:30)
[2024-03-10] MEDS: CYCLOBENZAPRINE HCL 5 MG TABLET PO ×3 (06:30→20:45)
[2024-03-10 07:23] LABS: Basophils Absolute Auto 0.1 K/mm3 (0.0-0.1); Basophils Percent Auto 0.8 % (0.2-1.2); Eosinophils Absolute Auto 0.4 K/mm3 (0-0.3); Eosinophils Percent Auto 3.3 % (0-4.4); Hematocrit 30.6 % (42.0-52.0); Hemoglobin 9.5 g/dL (14.0-18.0); Immature Granulocyte Percent A 1.8 % (0-0.5); Lymphocytes Absolute Auto 0.51 K/mm3 (0.9-3.2); Lymphocytes Percent Auto 4.6 % (18.3-44.2); Mean Corpuscular Hemoglobin 27.8 pg (26-34); Mean Corpuscular Volume 89.5 fl (80-100); Monocytes Absolute Auto 0.9 K/mm3 (0.1-0.6); Monocytes Percent Auto 7.7 % (2.6-8.5); Neutrophils Absolute Auto 9.1 K/mm3 (1.3-6.7); Neutrophils Percent Auto 81.8 % (45.5-73.1); Platelet Count Result 411 k/mm3 (150-375); Red Blood Count 3.42 M/mm3 (4.6-6.20); Red Cell Distribution Width 14.3 % (11.5-14.5); White Blood Count 11.1 K/mm3 (4.5-10.0)
[2024-03-10 08:24] LABS: Alanine Aminotransferase 11 U/L (6-50); Albumin Level 3.8 g/dL (3.5-5.1); Alkaline Phosphatase 62 U/L (38-126); Anion Gap 9 mmol/L (4-12); Aspartate Amino Transferase 19 U/L (17-59); Bilirubin,Total 0.5 mg/dL (0.2-1.3); Blood Urea Nitrogen 43 mg/dL (9-20); Calcium 9.3 mg/dL (8.4-10.2); Carbon Dioxide 32 mmol/L (22-30); Chloride 91 mmol/L (98-107); Estimated CRCL calculation 42 ml/min; Estimated Glomerular Filt Rate 31; Glucose 110 mg/dL (65-110); Potassium 3.2 mmol/L (3.4-5.0); Sodium 132 mmol/L (137-145)
[2024-03-10] MEDS: GABAPENTIN 300 MG CAPSULE PO ×3 (08:54→17:19)
[2024-03-10] MEDS: acetaZOLAMIDE TAB 250 MG TABLET PO (08:54)
[2024-03-10] MEDS: BUMETANIDE 1 MG TABLET PO ×3 (08:54→17:19)
[2024-03-10] MEDS: METOPROLOL TARTRATE 50 MG TAB PO ×2 (08:54→20:43)
[2024-03-10] MEDS: DOCUSATE SODIUM 100 MG CAPSULE PO ×2 (08:54→20:44)
[2024-03-10] MEDS: LORATADINE 10 MG TABLET PO (08:54)
[2024-03-10] MEDS: APIXABAN 5 MG TABLET PO ×2 (08:54→20:44)
[2024-03-10] MEDS: minoxidiL 10 MG TABLET PO (08:54)
[2024-03-10] MEDS: DOXYCYCLINE HYCLATE 100 MG TABLET PO ×2 (08:54→20:44)
[2024-03-10] MEDS: SPIRONOLACTONE 25 MG TABLET PO (08:55)
[2024-03-10] MEDS: TAMSULOSIN HCL 0.4 MG CAPSULE PO (08:55)
[2024-03-10] MEDS: HYDROcodone/acetaminophen (*CRX) 10-325 MG TABLET 1 TAB PO ×3 (08:55→20:44)
[2024-03-10] MEDS: polyethylene glycoL 3350 17 GM POWD.PACK PO ×2 (08:56→17:19)
[2024-03-10] MEDS: EUCERIN CREAM 120 GM JAR 1 APPLIC TOPICAL ×2 (08:56→17:19)
[2024-03-10] MEDS: CEFEPIME 1 GM/NS 50 ML 1 GM/50 ML BAG IVPB (12:29)
--- NOTE | 2024-03-10 12:44 | P.PNIM_ITS ---
Progress Note: A&P Assessment and Plan (1) Venous stasis ulcer of right lower extremity: Code(s): I83.019 - Varicose veins of right lower extremity with ulcer of unspecified site; L97.919 - Non-pressure chronic ulcer of unspecified part of right lower leg with unspecified severity Status: Acute Assessment and Plan: * initial white blood cell count 12.9 , ESR 95, CRP 15.8 * white blood cell count today 9.9 today * wound care consult * general surgery consulted for possible debridement * switched antibiotics to Doxycycline and Cefepime considering his last few wound cultures. * Blood cultures showing no growth to date on preliminary read * Wound culture pending * Continue dressing changes daily 03/10/24: * Leukocytosis of 11.1. 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 * General surgery consult and no acute surgical intervention is needed at this time. State patient may asked the with palpation. * Continue current antibiotics of doxycycline and cefepime * Blood cultures remain pending. * Wound cultures have grown out Pseudomonas. Sensitivity pending. Continue current antibiotic therapy for now. (2) JENA (acute kidney injury): Code(s): N17.9 - Acute kidney failure, unspecified Status: Chronic Assessment and Plan: * creatinine 2.20, EGFR 29 * baseline creatinine 1.7 to 2.2 * continue to trend 03/10/24: * Renal function stable today with CR/BUN of 2.10/43 respectively. He appears to be at baseline. Will reassess. (3) Chronic congestive heart failure: Qualifiers: Heart failure type: combined systolic and diastolic Qualified Code(s): I50.42 - Chronic combined systolic (congestive) and diastolic (congestive) heart failure Code(s): I50.9 - Heart failure, unspecified Status: Chronic Assessment and Plan: * last echo from 04/23/2022 reviewed which shown Normal LV systolic function with an estimated EF of 65-70%, grade 1 diastolic dysfunction. * continue Bumex, spironolactone, currently on metoprolol 03/10/24: * Continue current therapy * Daily weights * Accurate I&O (4) Atrial fibrillation: Qualifiers: Atrial fibrillation type: longstanding persistent Qualified Code(s): I48.11 - Longstanding persistent atrial fibrillation Code(s): I48.91 - Unspecified atrial fibrillation Status: Acute Assessment and Plan: * continue Eliquis and metoprolol (5) BPH (benign prostatic hyperplasia): Code(s): N40.0 - Benign prostatic hyperplasia without lower urinary tract symptoms Status: Chronic Assessment and Plan: * continue Flomax Time Spent With Patient Time with patient: 25 - 35 minutes Subjective Date/time seen: 03/10/24 12:44 Interval history: This very pleasant 74 year old male pt was examined at the bedside today in interval assessment. He was admitted to the hospital for evaluation and management of the RLE ulceration and open wound to the right foot. Surgery has evaluated and has made no surgical recommendations at this time and states pt may have outpt vascular workup as outpt. He remains on Vancomycin and Rocephin at this time. XR does not show any osteomyelitis. Wound nurse has made recommendations to leave wound open to air. We are awaiting PT/OT recs for discharge, but pt continues to refuse PT/OT. When discussing with him his plan for discharge, he states that Home health as well as his Grandchildren will continue to help with dressing changes. He will not hear of placement. Today he endorses not feeling well overall and states he hasn't had a BM in four days. He has mild nausea but no vomiting. He has had Miralax today to aid with the BM. He states he just doesn't feel well and would prefer not to discharge to day. Review of Systems Review of Systems: All systems reviewed & are unremarkable except as noted in HPI and below Constitutional: Constitutional: Reports as per HPI and Reports no additional constitutional complaints Eyes: Eyes: Reports as per HPI and Reports no additional eye complaints ENT: Reports system reviewed and no additional complaints, except as documented and Reports as per HPI Cardiovascular: Cardiovascular: Reports as per HPI and Reports no additional cardiovascular complaints Respiratory: Respiratory: Reports as per HPI and Reports no additional respiratory complaints Gastrointestinal: Gastrointestinal: Reports as per HPI and Reports no additional gastrointestinal complaints Genitourinary: Genitourinary: Reports no additional male genitourinary complaints and Reports as per HPI Musculoskeletal: Musculoskeletal: Reports no additional musculoskeletal complaints and Reports as per HPI Integumentary/Breasts: Skin/Breast: Reports system reviewed and no additional complaints, except as docu and Reports as per HPI Neurologic: Reports system reviewed and no additional complaints, except as documented and Reports as per HPI Psychiatric: Psychiatric: Reports no additional psychiatric complaints and Reports as per HPI Exam Narrative: CONSTITUTIONAL: Obese, male pt lying supine in bed at this time without any overt distress. He is pleasant. HENMT: Head is atraumatic and normocephalic. MMM, Patent oropharynx without any edema, erythema or exudate. EYES: PERRLA NECK: FROM in supple manner RESPIRATORY: CTAB without adventitious sounds. CARDIOVASCULAR: Regularly irregular without any m,r,g,h or displacement of PMI. GI: Rotund, BS+x4 quads. NT without any guarding, rebound. : Deferred SKIN: Right foot with open wounds, thick, creamy white drainage and serosang drng as well. JAVED and draining on a pad. Multiple areas of skin breakdown without any necrosis. NEURO: Non-focal exam. Generalized weakness present. EXTREMITY: BLE edematous and warm to touch. There are open wounds to the RLE foot. PSYCH: Pleasant, alert and oriented x4 with normal affect. Objective Data Vital Signs Vital Signs: Vital Signs - 24 hr 03/09/24 14:00 03/09/24 20:33 03/09/24 21:40 Temperature 97.8 F 99.1 F Pulse Rate 88 88 94 Respiratory Rate 16 20 Blood Pressure 121/62 129/69 Pulse Oximetry 97 97 Oxygen Delivery 03/09/24 21:45 03/10/24 06:00 03/10/24 08:00 Temperature 98.1 F Pulse Rate 83 Respiratory Rate 20 Blood Pressure 108/61 Pulse Oximetry 100 Oxygen Delivery CPAP CPAP Intake/Output Intake/Output: Intake & Output 03/07/24 03/08/24 03/09/24 03/10/24 23:59 23:59 23:59 23:59 Intake Total 1910 1520 1148 484 Output Total 2625 2650 2120 950 Balance -715 -1130 -972 -466 Meds/Results Medications: Active Medications Generic Name Dose Route Start Last Admin Trade Name Freq PRN Reason Stop Dose Admin Acetaminophen 650 mg 03/05/24 01:12 03/05/24 12:24 Acetaminophen 325 Mg Tablet PO 650 mg Q4H PRN Administration Mild Pain (1-3) or Fever Hydrocodone Bitart/Acetaminophen 1 tab 03/05/24 12:46 03/08/24 17:02 Hydrocodone/Acetaminophen (*Crx) 5-325 Mg Tablet PO 1 tab Q4H PRN Administration Pain Rated 4-6 Hydrocodone Bitart/Acetaminophen 1 tab 03/05/24 12:46 03/10/24 08:55 Hydrocodone/Acetaminophen (*Crx) 10-325 Mg Tablet PO 1 tab Q4H PRN Administration Pain Rated 7-10 Acetazolamide 250 mg 03/05/24 09:00 03/10/24 08:54 Acetazolamide Tab 250 Mg Tablet PO 250 mg DAILY ANGELA Administration Allopurinol 100 mg 03/05/24 08:00 03/05/24 07:52 Allopurinol 100 Mg Tablet PO 100 mg DAILY@0800 ANGELA Administration Apixaban 5 mg 03/05/24 09:00 03/10/24 08:54 Apixaban 5 Mg Tablet PO 5 mg Q12HR ANGELA Administration Bisacodyl 5 mg 03/09/24 19:03 Bisacodyl 5 Mg Tablet Ec PO BID PRN Constipation Bumetanide 1 mg 03/05/24 09:00 03/10/24 12:29 Bumetanide 1 Mg Tablet PO 1 mg TID ANGELA Administration Calcitriol 0.25 mcg 03/06/24 09:00 03/09/24 09:04 Calcitriol 0.25 Mcg Capsule PO 0.25 mcg MoWeFr ANGELA Administration Cyclobenzaprine HCl 5 mg 03/05/24 14:00 03/09/24 20:33 Cyclobenzaprine Hcl 5 Mg Tablet PO 5 mg Q8H NAGELA Administration Docusate Sodium 100 mg 03/05/24 09:00 03/10/24 08:54 Docusate Sodium 100 Mg Capsule PO 100 mg Q12HR ANGELA Administration Doxycycline Hyclate 100 mg 03/08/24 11:15 03/10/24 08:54 Doxycycline Hyclate 100 Mg Tablet PO 100 mg Q12HR ANGELA Administration Fluticasone Propionate 1 spray 03/05/24 04:31 03/05/24 07:51 Fluticasone Propionate 0.05% Na Spr 16 Gm Btl (*Bkc) NASAL 1 spray DAILY PRN Administration Congestion Gabapentin 300 mg 03/05/24 09:00 03/10/24 12:29 Gabapentin 300 Mg Capsule PO 300 mg TID ANGELA Administration Hydromorphone HCl 1 mg 03/06/24 11:13 12/09/24 20:29 Hydromorphone Hcl Inj (*Crx) 1 Mg/Ml Syr IV PUSH 1 mg Q3H PRN Administration Breakthrough pain Cefepime HCl 1 gm in 50 mls @ 100 mls/hr 03/08/24 11:30 03/10/24 12:29 Maxipime 1 Gm/Ns 50 Ml IVPB 100 mls/hr 1100,2300 ANGELA Administration Levothyroxine Sodium 200 mcg 03/05/24 06:30 03/10/24 06:30 Levothyroxine Sodium 100 Mcg Tablet PO 200 mcg DAILY@0630 ANGELA Administration Loratadine 10 mg 03/05/24 09:00 03/10/24 08:54 Loratadine 10 Mg Tablet PO 10 mg DAILY ANGELA Administration Metolazone 5 mg 03/06/24 09:00 03/09/24 09:04 Metolazone 5 Mg Tablet PO 5 mg MoWeFrSa ANGELA Administration Metoprolol Tartrate 50 mg 03/05/24 09:00 03/10/24 08:54 Metoprolol Tartrate 50 Mg Tab PO 50 mg Q12HR ANGELA Administration Minoxidil 10 mg 03/05/24 09:00 03/10/24 08:54 Minoxidil 10 Mg Tablet PO 10 mg DAILY ANGELA Administration Multi-Ingred Cream/Lotion/Oil/Oint 1 applic 03/05/24 09:00 03/10/24 08:56 Eucerin Cream 120 Gm Jar TOPICAL 1 applic BID ANGELA Administration Ondansetron HCl 4 mg 03/05/24 01:12 03/05/24 13:42 Ondansetron Inj 4 Mg/2 Ml Vial IV PUSH 4 mg Q4H PRN Administration Nausea Polyethylene Glycol 17 gm 03/10/24 09:00 03/10/24 08:56 Polyethylene Glycol 3350 17 Gm Powd.Pack PO 17 gm BID ANGELA Administration Senna/Docusate Sodium 1 tab 03/05/24 04:31 Senna/Docusate Sodium Tablet PO HS PRN CONSTIPATION Senna/Docusate Sodium 2 tab 03/09/24 21:00 03/09/24 20:32 Senna/Docusate Sodium Tablet PO 2 tab HS ANGELA Administration Spironolactone 25 mg 03/05/24 09:00 03/10/24 08:55 Spironolactone 25 Mg Tablet PO 25 mg DAILY ANGELA Administration Tamsulosin HCl 0.4 mg 03/05/24 09:00 03/10/24 08:55 Tamsulosin Hcl 0.4 Mg Capsule PO 0.4 mg QAM ANGELA Administration Radiology Results: ITS Impressions Foot X-Ray 03/05/24 05:36 Impression: No definite radiographic evidence for osteomyelitis. Soft tissue swelling of the forefoot, especially dorsally. Foot MRI 03/06/24 13:53 IMPRESSION: No evidence for osteitis or abscess. Prominent, diffuse subcutaneous soft tissue edema. Probable mild nonspecific myositis. Mild degenerative changes in the toes. Ankle MRI 03/06/24 14:40 IMPRESSION: 1. No evidence of osteomyelitis. Labs Labs: Laboratory Results - last 24 hr 03/10/24 06:16 WBC 11.1 H RBC 3.42 L Hgb 9.5 L Hct 30.6 L MCV 89.5 MCH 27.8 MCHC 31.0 L RDW 14.3 Plt Count 411 H MPV 10.0 Immature Gran % (Auto) 1.8 H Neut % (Auto) 81.8 H Lymph % (Auto) 4.6 L [place] % (Auto) 7.7 Eos % (Auto) 3.3 Baso % (Auto) 0.8 Lymph # (Auto) 0.51 L [place] # (Auto) 0.9 H Eos # (Auto) 0.4 H Baso # (Auto) 0.1 Abs Immat Gran (auto) 0.20 H Absolute Neuts (auto) 9.1 H Absolute Nucleated RBC 0.000 Nucleated RBC % 0.0 Sodium 132 L Potassium 3.2 L Chloride 91 L Carbon Dioxide 32 H Anion Gap 9 BUN 43 H Creatinine 2.10 H Estim Creat Clear Calc 42 Estimated GFR 31 L Glucose 110 Calcium 9.3 Magnesium 2.0 Total Bilirubin 0.5 AST 19 ALT 11 Alkaline Phosphatase 62 Total Protein 7.0 Albumin 3.8 Quality VTE Prophylaxis VTE prophylaxis: pharmacologic ordered
[2024-03-10 14:00] VITALS: BP 123/65; PULSE 84; RESP 18; TEMP 36.6; O2SAT 96
[2024-03-10 20:43] VITALS: PULSE 88
[2024-03-10] MEDS: SENNA/DOCUSATE SODIUM TABLET 2 TAB PO (20:44)
[2024-03-10] MEDS: CEFEPIME 2 GM/NS 50 ML 2 GM/50 ML BAG IVPB (20:45)
[2024-03-10 21:11] VITALS: BP 129/70; PULSE 86; RESP 20; TEMP 36.7; O2SAT 97
[2024-03-11] MEDS: HYDROmorphone HCL INJ (*CRX) 1 MG/ML SYR IV PUSH ×2 (02:32→17:53)
[2024-03-11 05:30] VITALS: BP 116/71; PULSE 79; RESP 16; TEMP 36.6; O2SAT 99
[2024-03-11] MEDS: LEVOTHYROXINE SODIUM 100 MCG TABLET 200 MCG PO (05:59)
[2024-03-11] MEDS: CYCLOBENZAPRINE HCL 5 MG TABLET PO ×3 (05:59→20:28)
[2024-03-11 06:57] LABS: Basophils Absolute Auto 0.1 K/mm3 (0.0-0.1); Basophils Percent Auto 0.7 % (0.2-1.2); Eosinophils Absolute Auto 0.4 K/mm3 (0-0.3); Eosinophils Percent Auto 3.7 % (0-4.4); Hematocrit 29.9 % (42.0-52.0); Hemoglobin 9.4 g/dL (14.0-18.0); Immature Granulocyte Absolute 0.17 K/mm3 (0.00-0.031); Immature Granulocyte Percent A 1.7 % (0-0.5); Lymphocytes Absolute Auto 0.52 K/mm3 (0.9-3.2); Lymphocytes Percent Auto 5.3 % (18.3-44.2); Mean Corpuscular HGB Conc 31.4 g/dl (32-36); Mean Corpuscular Hemoglobin 27.8 pg (26-34); Mean Corpuscular Volume 88.5 fl (80-100); Monocytes Absolute Auto 0.8 K/mm3 (0.1-0.6); Monocytes Percent Auto 7.9 % (2.6-8.5); Neutrophils Absolute Auto 7.9 K/mm3 (1.3-6.7); Neutrophils Percent Auto 80.7 % (45.5-73.1); Platelet Count Result 370 k/mm3 (150-375); Red Blood Count 3.38 M/mm3 (4.6-6.20); Red Cell Distribution Width 14.4 % (11.5-14.5); White Blood Count 9.7 K/mm3 (4.5-10.0)
[2024-03-11 07:07] LABS: Alanine Aminotransferase 9 U/L (6-50); Albumin Level 3.8 g/dL (3.5-5.1); Alkaline Phosphatase 63 U/L (38-126); Anion Gap 5 mmol/L (4-12); Aspartate Amino Transferase 19 U/L (17-59); Bilirubin,Total 0.6 mg/dL (0.2-1.3); Blood Urea Nitrogen 46 mg/dL (9-20); Calcium 9.5 mg/dL (8.4-10.2); Carbon Dioxide 37 mmol/L (22-30); Chloride 88 mmol/L (98-107); Estimated CRCL calculation 40 ml/min; Estimated Glomerular Filt Rate 29; Glucose 106 mg/dL (65-110); Magnesium 2.1 mg/dL (1.6-2.3); Potassium 3.5 mmol/L (3.4-5.0); Sodium 130 mmol/L (137-145)
[2024-03-11] MEDS: CEFEPIME 2 GM/NS 50 ML 2 GM/50 ML BAG IVPB (08:31)
[2024-03-11] MEDS: minoxidiL 10 MG TABLET PO (08:33)
[2024-03-11] MEDS: DOCUSATE SODIUM 100 MG CAPSULE PO ×2 (08:33→20:28)
[2024-03-11] MEDS: GABAPENTIN 300 MG CAPSULE PO ×3 (08:33→16:26)
[2024-03-11] MEDS: HYDROcodone/acetaminophen (*CRX) 10-325 MG TABLET 1 TAB PO ×2 (08:33→16:26)
[2024-03-11] MEDS: BUMETANIDE 1 MG TABLET PO ×3 (08:33→16:26)
[2024-03-11] MEDS: SPIRONOLACTONE 25 MG TABLET PO (08:33)
[2024-03-11 08:34] VITALS: PULSE 72
[2024-03-11] MEDS: METOPROLOL TARTRATE 50 MG TAB PO ×2 (08:34→20:28)
[2024-03-11] MEDS: LORATADINE 10 MG TABLET PO (08:34)
[2024-03-11] MEDS: TAMSULOSIN HCL 0.4 MG CAPSULE PO (08:34)
[2024-03-11] MEDS: APIXABAN 5 MG TABLET PO ×2 (08:34→20:28)
[2024-03-11] MEDS: DOXYCYCLINE HYCLATE 100 MG TABLET PO ×2 (08:34→20:28)
[2024-03-11] MEDS: polyethylene glycoL 3350 17 GM POWD.PACK PO ×2 (08:35→16:27)
[2024-03-11] MEDS: metOLazone 5 MG TABLET PO (08:45)
[2024-03-11] MEDS: EUCERIN CREAM 120 GM JAR 1 APPLIC TOPICAL ×2 (08:51→16:26)
[2024-03-11] MEDS: acetaZOLAMIDE TAB 250 MG TABLET PO (08:53)
[2024-03-11] MEDS: calcitrioL 0.25 MCG CAPSULE PO (08:53)
--- NOTE | 2024-03-11 10:39 | PM.IMPN ---
Progress Note: A&P Assessment and Plan (1) Venous stasis ulcer of right lower extremity: Code(s): I83.019 - Varicose veins of right lower extremity with ulcer of unspecified site; L97.919 - Non-pressure chronic ulcer of unspecified part of right lower leg with unspecified severity Status: Acute Assessment and Plan: initial white blood cell count 12.9 , ESR 95, CRP 15.8 white blood cell count today 9.9 today wound care consult general surgery consulted for possible debridement switched antibiotics to Doxycycline and Cefepime considering his last few wound cultures. Blood cultures showing no growth to date on preliminary read Wound culture pending Continue dressing changes daily 03/10/24: Leukocytosis of 11.1. 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 General surgery consult and no acute surgical intervention is needed at this time. State patient may asked the with palpation. Continue current antibiotics of doxycycline and cefepime Blood cultures remain pending. Wound cultures have grown out Pseudomonas. Sensitivity pending. Continue current antibiotic therapy for now. 03/11/24: Resolution of leukocytosis present. Continue wound care of daily with cleaning with soap and water, applying anti-fungal powder and as it is draining, applying Hydroferal Blue dressing with ABD pad and gauze. Wound cx grew out Staph and Pseudomonas. Continuing Doxycycline for staph coverage and according to sensitivity discontinuing Cefepime and starting Levaquin for Pseudomonal coverage po. Final Blood cultures are all negative. (2) Self-care deficit: Code(s): Z78.9 - Other specified health status Status: Acute Assessment and Plan: 03/11/24: Pt acknowledges that he will not be able to adequately care for himself at home and is now in agreement to go to SNF or rehab. PT re-ordered for discharge planning and care coordination was made aware. Pt understands that he may not refuse PT to make this determination. (3) JENA (acute kidney injury): Code(s): N17.9 - Acute kidney failure, unspecified Status: Chronic Assessment and Plan: creatinine 2.20, EGFR 29 baseline creatinine 1.7 to 2.2 continue to trend 03/10/24: Renal function stable today with CR/BUN of 2.10/43 respectively. He appears to be at baseline. Will reassess. 03/11/24: Stable and at what is most likely new baseline. (4) Chronic congestive heart failure: Qualifiers: Heart failure type: combined systolic and diastolic Qualified Code(s): I50.42 - Chronic combined systolic (congestive) and diastolic (congestive) heart failure Code(s): I50.9 - Heart failure, unspecified Status: Chronic Assessment and Plan: last echo from 04/23/2022 reviewed which shown Normal LV systolic function with an estimated EF of 65-70%, grade 1 diastolic dysfunction. continue Bumex, spironolactone, currently on metoprolol 03/10/24: Continue current therapy Daily weights Accurate I&O 03/11/24: I&O balance of 1040 in and 1875 out in last 24 hours. No s/s of acute heart failure exacerbation. Continue current medications. (5) Atrial fibrillation: Qualifiers: Atrial fibrillation type: longstanding persistent Qualified Code(s): I48.11 - Longstanding persistent atrial fibrillation Code(s): I48.91 - Unspecified atrial fibrillation Status: Chronic Assessment and Plan: continue Eliquis and metoprolol 03/11/24: Pt remains rate controlled. Continue Eliquis. (6) BPH (benign prostatic hyperplasia): Code(s): N40.0 - Benign prostatic hyperplasia without lower urinary tract symptoms Status: Chronic Assessment and Plan: continue Flomax Time Spent With Patient Time with patient: 25 - 35 minutes Subjective Date/time seen: 03/11/24 10:39 Interval history: This pt was examined at the bedside today in interval assessment. The intent was to likely discharge him to home today as pt was adamant that he did not want to go to a SNF for continued care. Upon talking to him though he states he is scared that he cannot care for himself and he remains weak, so he is now agreeable to placement. I discussed with him that if he was willing to be placed, he would not be able to refuse PT and he is agreeable. New order placed for PT and Care coordination is notified. His wound cultures grew out Staph aureus and Pseudomonas. His IV abx were discontinued today and according to the C&S he is started on Levaquin for Pseudomonas and will continue on Doxy for Staph coverage. His wound dressings continue daily with cleaning with soap and water, applying anti-fungal powder and as it is draining, applying Hydroferal Blue dressing with ABD pad and gauze. Pt still complains of constipation despite Miralax and colace, so Enema is ordered. Review of Systems Review of Systems: All systems reviewed & are unremarkable except as noted in HPI and below Exam Narrative: CONSTITUTIONAL: Obese, male pt lying supine in bed at this time without any overt distress. He is pleasant. HENMT: Head is atraumatic and normocephalic. MMM, Patent oropharynx without any edema, erythema or exudate. EYES: PERRLA NECK: FROM in supple manner RESPIRATORY: CTAB without adventitious sounds. CARDIOVASCULAR: Regularly irregular without any m,r,g,h or displacement of PMI. GI: Rotund, BS+x4 quads. NT without any guarding, rebound. : Deferred SKIN: Right foot with open wounds, thick, creamy white drainage and serosang drng as well. JAVED and draining on a pad. Multiple areas of skin breakdown without any necrosis. NEURO: Non-focal exam. Generalized weakness present. EXTREMITY: BLE edematous and warm to touch. There are open wounds to the RLE foot. PSYCH: Pleasant, alert and oriented x4 with normal affect. Objective Data Vital Signs Vital Signs: Vital Signs - 24 hr 03/10/24 14:00 03/10/24 20:43 03/10/24 21:08 Temperature 97.8 F Pulse Rate 84 88 Respiratory Rate 18 Blood Pressure 123/65 Pulse Oximetry 96 Oxygen Delivery CPAP 03/10/24 21:11 03/11/24 05:30 03/11/24 08:34 Temperature 98.1 F 97.8 F Pulse Rate 86 79 72 Respiratory Rate 20 16 Blood Pressure 129/70 116/71 Pulse Oximetry 97 99 Oxygen Delivery Intake/Output Intake/Output: Intake & Output 03/08/24 03/09/24 03/10/24 03/11/24 23:59 23:59 23:59 23:59 Intake Total 1520 1148 774 750 Output Total 2650 8461 2108 Balance -1130 -972 -2058 750 Meds/Results Medications: Active Medications Generic Name Dose Route Start Last Admin Trade Name Freq PRN Reason Stop Dose Admin Acetaminophen 650 mg 03/05/24 01:12 03/05/24 12:24 Acetaminophen 325 Mg Tablet PO 650 mg Q4H PRN Administration Mild Pain (1-3) or Fever Hydrocodone Bitart/Acetaminophen 1 tab 03/05/24 12:46 03/08/24 17:02 Hydrocodone/Acetaminophen (*Crx) 5-325 Mg Tablet PO 1 tab Q4H PRN Administration Pain Rated 4-6 Hydrocodone Bitart/Acetaminophen 1 tab 03/05/24 12:46 03/11/24 08:33 Hydrocodone/Acetaminophen (*Crx) 10-325 Mg Tablet PO 1 tab Q4H PRN Administration Pain Rated 7-10 Acetazolamide 250 mg 03/05/24 09:00 03/11/24 08:53 Acetazolamide Tab 250 Mg Tablet PO 250 mg DAILY ANGELA Administration Allopurinol 100 mg 03/05/24 08:00 03/05/24 07:52 Allopurinol 100 Mg Tablet PO 100 mg DAILY@0800 ANGELA Administration Apixaban 5 mg 03/05/24 09:00 03/11/24 08:34 Apixaban 5 Mg Tablet PO 5 mg Q12HR ANGELA Administration Bisacodyl 5 mg 03/09/24 19:03 Bisacodyl 5 Mg Tablet Ec PO BID PRN Constipation Bumetanide 1 mg 03/05/24 09:00 03/11/24 08:33 Bumetanide 1 Mg Tablet PO 1 mg TID ANGELA Administration Calcitriol 0.25 mcg 03/06/24 09:00 03/11/24 08:53 Calcitriol 0.25 Mcg Capsule PO 0.25 mcg MoWeFr ANGELA Administration Cyclobenzaprine HCl 5 mg 03/05/24 14:00 03/11/24 05:59 Cyclobenzaprine Hcl 5 Mg Tablet PO 5 mg Q8H ANGELA Administration Docusate Sodium 100 mg 03/05/24 09:00 03/11/24 08:33 Docusate Sodium 100 Mg Capsule PO 100 mg Q12HR ANGELA Administration Doxycycline Hyclate 100 mg 03/08/24 11:15 03/11/24 08:34 Doxycycline Hyclate 100 Mg Tablet PO 100 mg Q12HR ANGELA Administration Fluticasone Propionate 1 spray 03/05/24 04:31 03/05/24 07:51 Fluticasone Propionate 0.05% Na Spr 16 Gm Btl (*Bkc) NASAL 1 spray DAILY PRN Administration Congestion Gabapentin 300 mg 03/05/24 09:00 03/11/24 08:33 Gabapentin 300 Mg Capsule PO 300 mg TID ANGELA Administration Hydromorphone HCl 1 mg 03/06/24 11:13 03/11/24 02:32 Hydromorphone Hcl Inj (*Crx) 1 Mg/Ml Syr IV PUSH 1 mg Q3H PRN Administration Breakthrough pain Levofloxacin 500 mg 03/12/24 09:00 Levofloxacin 500 Mg Tablet PO DAILY [facility] Levothyroxine Sodium 200 mcg 03/05/24 06:30 03/11/24 05:59 Levothyroxine Sodium 100 Mcg Tablet PO 200 mcg DAILY@0630 ANGELA Administration Loratadine 10 mg 03/05/24 09:00 03/11/24 08:34 Loratadine 10 Mg Tablet PO 10 mg DAILY [facility] Administration Metolazone 5 mg 03/06/24 09:00 03/11/24 08:45 Metolazone 5 Mg Tablet PO 5 mg MoWeFrSa [facility] Administration Metoprolol Tartrate 50 mg 03/05/24 09:00 03/11/24 08:34 Metoprolol Tartrate 50 Mg Tab PO 50 mg Q12HR [facility] Administration Minoxidil 10 mg 03/05/24 09:00 03/11/24 08:33 Minoxidil 10 Mg Tablet PO 10 mg DAILY [facility] Administration Multi-Ingred Cream/Lotion/Oil/Oint 1 applic 03/05/24 09:00 03/11/24 08:51 Eucerin Cream 120 Gm Jar TOPICAL 1 applic BID ANGELA Administration Ondansetron HCl 4 mg 03/05/24 01:12 03/05/24 13:42 Ondansetron Inj 4 Mg/2 Ml Vial IV PUSH 4 mg Q4H PRN Administration Nausea Polyethylene Glycol 17 gm 03/10/24 09:00 03/11/24 08:35 Polyethylene Glycol 3350 17 Gm Powd.Pack PO 17 gm BID [facility] Administration Senna/Docusate Sodium 1 tab 03/05/24 04:31 Senna/Docusate Sodium Tablet PO HS PRN CONSTIPATION Senna/Docusate Sodium 2 tab 03/09/24 21:00 03/10/24 20:44 Senna/Docusate Sodium Tablet PO 2 tab HS ANGELA Administration Spironolactone 25 mg 03/05/24 09:00 03/11/24 08:33 Spironolactone 25 Mg Tablet PO 25 mg DAILY ANGELA Administration Tamsulosin HCl 0.4 mg 03/05/24 09:00 03/11/24 08:34 Tamsulosin Hcl 0.4 Mg Capsule PO 0.4 mg QAM ANGELA Administration Radiology Results: ITS Impressions Foot X-Ray 03/05/24 05:36 Impression: No definite radiographic evidence for osteomyelitis. Soft tissue swelling of the forefoot, especially dorsally. Foot MRI 03/06/24 13:53 IMPRESSION: No evidence for osteitis or abscess. Prominent, diffuse subcutaneous soft tissue edema. Probable mild nonspecific myositis. Mild degenerative changes in the toes. Ankle MRI 03/06/24 14:40 IMPRESSION: 1. No evidence of osteomyelitis. Labs Labs: Laboratory Results - last 24 hr 03/11/24 05:45 WBC 9.7 RBC 3.38 L Hgb 9.4 L Hct 29.9 L MCV 88.5 MCH 27.8 MCHC 31.4 L RDW 14.4 Plt Count 370 MPV 10.0 Immature Gran % (Auto) 1.7 H Neut % (Auto) 80.7 H Lymph % (Auto) 5.3 L [place] % (Auto) 7.9 Eos % (Auto) 3.7 Baso % (Auto) 0.7 Lymph # (Auto) 0.52 L [place] # (Auto) 0.8 H Eos # (Auto) 0.4 H Baso # (Auto) 0.1 Abs Immat Gran (auto) 0.17 H Absolute Neuts (auto) 7.9 H Absolute Nucleated RBC 0.000 Nucleated RBC % 0.0 Sodium 130 L Potassium 3.5 Chloride 88 L Carbon Dioxide 37 H Anion Gap 5 BUN 46 H Creatinine 2.20 H Estim Creat Clear Calc 40 Estimated GFR 29 L Glucose 106 Calcium 9.5 Magnesium 2.1 Total Bilirubin 0.6 AST 19 ALT 9 Alkaline Phosphatase 63 Total Protein 7.0 Albumin 3.8 Quality VTE Prophylaxis VTE prophylaxis: pharmacologic ordered
[2024-03-11 13:45] VITALS: BP 116/58; PULSE 86; RESP 18; TEMP 36.6; O2SAT 98
[2024-03-11 20:28] VITALS: PULSE 87
[2024-03-11] MEDS: SENNA/DOCUSATE SODIUM TABLET 2 TAB PO (20:28)
[2024-03-11 20:53] VITALS: BP 127/77; PULSE 85; RESP 20; TEMP 36.6; O2SAT 100
[2024-03-12] MEDS: CYCLOBENZAPRINE HCL 5 MG TABLET PO ×2 (05:25→13:15)
[2024-03-12] MEDS: LEVOTHYROXINE SODIUM 100 MCG TABLET 200 MCG PO (05:25)
[2024-03-12 06:00] VITALS: BP 118/76; PULSE 82; RESP 16; TEMP 36.1; O2SAT 100
[2024-03-12 07:27] LABS: Basophils Absolute Auto 0.1 K/mm3 (0.0-0.1); Basophils Percent Auto 0.7 % (0.2-1.2); Eosinophils Absolute Auto 0.4 K/mm3 (0-0.3); Eosinophils Percent Auto 3.9 % (0-4.4); Hematocrit 30.5 % (42.0-52.0); Hemoglobin 9.5 g/dL (14.0-18.0); Immature Granulocyte Absolute 0.18 K/mm3 (0.00-0.031); Immature Granulocyte Percent A 1.8 % (0-0.5); Lymphocytes Absolute Auto 0.59 K/mm3 (0.9-3.2); Lymphocytes Percent Auto 5.8 % (18.3-44.2); Mean Corpuscular HGB Conc 31.1 g/dl (32-36); Mean Corpuscular Volume 86.6 fl (80-100); Mean Platelet Volume 9.8 fl (7.4-10.4); Monocytes Absolute Auto 0.9 K/mm3 (0.1-0.6); Monocytes Percent Auto 8.9 % (2.6-8.5); Neutrophils Percent Auto 78.9 % (45.5-73.1); Platelet Count Result 354 k/mm3 (150-375); Red Blood Count 3.52 M/mm3 (4.6-6.20); Red Cell Distribution Width 14.2 % (11.5-14.5); White Blood Count 10.1 K/mm3 (4.5-10.0)
[2024-03-12 07:40] LABS: Alanine Aminotransferase 9 U/L (6-50); Albumin Level 3.7 g/dL (3.5-5.1); Alkaline Phosphatase 62 U/L (38-126); Anion Gap 6 mmol/L (4-12); Aspartate Amino Transferase 16 U/L (17-59); Bilirubin,Total 0.7 mg/dL (0.2-1.3); Blood Urea Nitrogen 51 mg/dL (9-20); Calcium 9.5 mg/dL (8.4-10.2); Carbon Dioxide 35 mmol/L (22-30); Chloride 87 mmol/L (98-107); Estimated CRCL calculation 39 ml/min; Estimated Glomerular Filt Rate 28; Glucose 107 mg/dL (65-110); Magnesium 1.9 mg/dL (1.6-2.3); Potassium 3.2 mmol/L (3.4-5.0); Sodium 128 mmol/L (137-145)
[2024-03-12] MEDS: LORATADINE 10 MG TABLET PO (08:27)
[2024-03-12] MEDS: DOXYCYCLINE HYCLATE 100 MG TABLET PO (08:27)
[2024-03-12] MEDS: TAMSULOSIN HCL 0.4 MG CAPSULE PO (08:27)
[2024-03-12] MEDS: GABAPENTIN 300 MG CAPSULE PO ×3 (08:27→17:17)
[2024-03-12] MEDS: acetaZOLAMIDE TAB 250 MG TABLET PO (08:27)
[2024-03-12] MEDS: BUMETANIDE 1 MG TABLET PO ×3 (08:27→17:17)
[2024-03-12] MEDS: DOCUSATE SODIUM 100 MG CAPSULE PO (08:27)
[2024-03-12 08:28] VITALS: PULSE 80
[2024-03-12] MEDS: polyethylene glycoL 3350 17 GM POWD.PACK PO ×2 (08:28→17:17)
[2024-03-12] MEDS: minoxidiL 10 MG TABLET PO (08:28)
[2024-03-12] MEDS: METOPROLOL TARTRATE 50 MG TAB PO ×2 (08:28→21:00)
[2024-03-12] MEDS: SPIRONOLACTONE 25 MG TABLET PO (08:28)
[2024-03-12] MEDS: APIXABAN 5 MG TABLET PO ×2 (08:28→21:03)
[2024-03-12] MEDS: EUCERIN CREAM 120 GM JAR 1 APPLIC TOPICAL ×2 (08:29→17:18)
--- NOTE | 2024-03-12 09:22 | P.PNIM_ITS ---
Progress Note: A&P Assessment and Plan (1) Venous stasis ulcer of right lower extremity: Code(s): I83.019 - Varicose veins of right lower extremity with ulcer of unspecified site; L97.919 - Non-pressure chronic ulcer of unspecified part of right lower leg with unspecified severity Status: Acute Assessment and Plan: On admission, white blood cell count 12.9 , ESR 95, CRP 15.8 Initially on Cefepime and doxy, switched to levaquin and doxy but staph is resistant Wound culture 12/05 grew pseudomonas and staph aureus Patient has allergies to both Bactrim and PCN * wound care following * general surgery consulted for possible debridement * Stop doxy. Start Linezolid, plan 7 day course * Blood cultures showing no growth to date on preliminary read * Continue dressing changes daily * Continue wound care of daily with cleaning with soap and water, applying anti- fungal powder and as it is draining, applying Hydroferal Blue dressing with ABD pad and gauze. * Right leg arterial duplex 03/08 Wound cultures 1. Pseudomonas aeruginosa M.I.C. RX --------- --- Amikacin 4 S Ceftazidime >=64 R Ciprofloxacin 0.25 S Levofloxacin 0.5 S Imipenem 2 S Meropenem <=0.25 S 2. Staphylococcus aureus M.I.C. RX --------- --- Vancomycin 1 S Ciprofloxacin >=8 R Clindamycin >=8 R Levofloxacin >=8 R Erythromycin >=8 R Gentamicin <=0.5 S Oxacillin 0.5 S Tetracycline >=16 R Trimethoprim/Sulfamethoxazole <=10 S Moxifloxacin 4 R (2) Self-care deficit: Code(s): Z78.9 - Other specified health status Status: Acute Assessment and Plan: Patient unable to get out of bed independently so unsafe for home, though he would prefer to go home. Agreeable to SN (3) JENA (acute kidney injury): Code(s): N17.9 - Acute kidney failure, unspecified Status: Chronic Assessment and Plan: baseline creatinine 1.7 to 2.2 * continue to trend * Renal function stable today with CR/BUN of 2.10/43 respectively. He appears to be at baseline. Will reassess. * creatinine 2.20, EGFR 29 (4) Chronic congestive heart failure: Qualifiers: Heart failure type: combined systolic and diastolic Qualified Code(s): I50.42 - Chronic combined systolic (congestive) and diastolic (congestive) heart failure Code(s): I50.9 - Heart failure, unspecified Status: Chronic Assessment and Plan: Home meds: Bumetanide 1mg TID, spironolactone 25 daily, metolazone 5mg 4 times a week. Also on diamox 250mg daily TTE 04/23/2022 showed Normal LV systolic function with an estimated EF of 65- 70%, grade 1 diastolic dysfunction. * Continue home meds, on home doses above * Daily weights * Accurate I&O (5) Atrial fibrillation: Qualifiers: Atrial fibrillation type: longstanding persistent Qualified Code(s): I48.11 - Longstanding persistent atrial fibrillation Code(s): I48.91 - Unspecified atrial fibrillation Status: Chronic Assessment and Plan: Home meds: Eliquis and metoprolol 50 q12 * Pt remains rate controlled. * Continue Eliquis. (6) BPH (benign prostatic hyperplasia): Code(s): N40.0 - Benign prostatic hyperplasia without lower urinary tract symptoms Status: Chronic Assessment and Plan: Home med: Flomax * voiding well * Continue home flomax Time Spent With Patient Time: 59 minutes Subjective Date/time seen: 03/12/24 09:22 Interval history: Bleeding from right leg wound this morning. Had stopped when I saw him. No significant pain. Agreeable to SNF since unable to get up on his own yet. Still needs to work with therapy Exam Narrative: CONSTITUTIONAL: Obese, male pt lying supine in bed at this time without any overt distress. He is pleasant. HENMT: Head is atraumatic and normocephalic. MMM, Patent oropharynx without any edema, erythema or exudate. EYES: PERRLA NECK: FROM in supple manner RESPIRATORY: CTAB without adventitious sounds. CARDIOVASCULAR: Regularly irregular without any m,r,g,h or displacement of PMI. GI: Rotund, BS+x4 quads. NT without any guarding, rebound. : Deferred SKIN: Right foot with open wounds. Wound dressed but visible bloody drainage as well. [employer] and draining on a pad. Multiple areas of skin breakdown without any necrosis. NEURO: Non-focal exam. Generalized weakness present. EXTREMITY: BLE edematous and warm to touch. Open wounds to the RLE foot. PSYCH: Pleasant, alert and oriented x4 with normal affect. Objective Data Vital Signs Vital Signs: Vital Signs - 24 hr 03/11/24 13:45 03/11/24 20:00 03/11/24 20:28 Temperature 97.8 F Pulse Rate 86 87 Respiratory Rate 18 Blood Pressure 116/58 L Pulse Oximetry 98 Oxygen Delivery Room Air 03/11/24 20:53 03/11/24 21:56 03/12/24 02:15 Temperature 97.9 F Pulse Rate 85 Respiratory Rate 20 Blood Pressure 127/77 Pulse Oximetry 100 Oxygen Delivery CPAP CPAP 03/12/24 06:00 03/12/24 08:28 Temperature 96.9 F L Pulse Rate 82 80 Respiratory Rate 16 Blood Pressure 118/76 Pulse Oximetry 100 Oxygen Delivery Intake/Output Intake/Output: Intake & Output 03/09/24 03/10/24 03/11/24 03/12/24 23:59 23:59 23:59 23:59 Intake Total 5840 966 9507 200 Output Total 2120 2825 1925 675 [facility] [phone] Meds/Results Medications: Active Medications Generic Name Dose Route Start Last Admin Trade Name Freq PRN Reason Stop Dose Admin Acetaminophen 650 mg 03/05/24 01:12 03/05/24 12:24 Acetaminophen 325 Mg Tablet PO 650 mg Q4H PRN Administration Mild Pain (1-3) or Fever Hydrocodone Bitart/Acetaminophen 1 tab 03/05/24 12:46 03/08/24 17:02 Hydrocodone/Acetaminophen (*Crx) 5-325 Mg Tablet PO 1 tab Q4H PRN Administration Pain Rated 4-6 Hydrocodone Bitart/Acetaminophen 1 tab 03/05/24 12:46 03/11/24 16:26 Hydrocodone/Acetaminophen (*Crx) 10-325 Mg Tablet PO 1 tab Q4H PRN Administration Pain Rated 7-10 Acetazolamide 250 mg 03/05/24 09:00 03/12/24 08:27 Acetazolamide Tab 250 Mg Tablet PO 250 mg DAILY ANGELA Administration Allopurinol 100 mg 03/05/24 08:00 03/05/24 07:52 Allopurinol 100 Mg Tablet PO 100 mg DAILY@0800 ANGELA Administration Apixaban 5 mg 03/05/24 09:00 03/12/24 08:28 Apixaban 5 Mg Tablet PO 5 mg Q12HR [facility] Administration Bisacodyl 5 mg 03/09/24 19:03 Bisacodyl 5 Mg Tablet Ec PO BID PRN Constipation Bumetanide 1 mg 03/05/24 09:00 03/12/24 08:27 Bumetanide 1 Mg Tablet PO 1 mg TID [facility] Administration Calcitriol 0.25 mcg 03/06/24 09:00 03/11/24 08:53 Calcitriol 0.25 Mcg Capsule PO 0.25 mcg MoWeFr [facility] Administration Cyclobenzaprine HCl 5 mg 03/05/24 14:00 03/12/24 05:25 Cyclobenzaprine Hcl 5 Mg Tablet PO 5 mg Q8H ANGELA Administration Docusate Sodium 100 mg 03/05/24 09:00 03/12/24 08:27 Docusate Sodium 100 Mg Capsule PO 100 mg Q12HR ANGELA Administration Doxycycline Hyclate 100 mg 03/08/24 11:15 03/12/24 08:27 Doxycycline Hyclate 100 Mg Tablet PO 100 mg Q12HR [facility] Administration Fluticasone Propionate 1 spray 03/05/24 04:31 03/05/24 07:51 Fluticasone Propionate 0.05% Na Spr 16 Gm Btl (*Bkc) NASAL 1 spray DAILY PRN Administration Congestion Gabapentin 300 mg 03/05/24 09:00 03/12/24 08:27 Gabapentin 300 Mg Capsule PO 300 mg TID [facility] Administration Hydromorphone HCl 1 mg 03/06/24 11:13 03/11/24 17:53 Hydromorphone Hcl Inj (*Crx) 1 Mg/Ml Syr IV PUSH 1 mg Q3H PRN Administration Breakthrough pain Levofloxacin 750 mg 03/12/24 15:00 Levofloxacin 750 Mg Tablet PO Q48H [facility] Levothyroxine Sodium 200 mcg 03/05/24 06:30 03/12/24 05:25 Levothyroxine Sodium 100 Mcg Tablet PO 200 mcg DAILY@0630 [facility] Administration Loratadine 10 mg 03/05/24 09:00 03/12/24 08:27 Loratadine 10 Mg Tablet PO 10 mg DAILY [facility] Administration Metolazone 5 mg 03/06/24 09:00 03/11/24 08:45 Metolazone 5 Mg Tablet PO 5 mg MoWeFrSa ANGELA Administration Metoprolol Tartrate 50 mg 03/05/24 09:00 03/12/24 08:28 Metoprolol Tartrate 50 Mg Tab PO 50 mg Q12HR ANGELA Administration Minoxidil 10 mg 03/05/24 09:00 03/12/24 08:28 Minoxidil 10 Mg Tablet PO 10 mg DAILY ANGELA Administration Multi-Ingred Cream/Lotion/Oil/Oint 1 applic 03/05/24 09:00 03/12/24 08:29 Eucerin Cream 120 Gm Jar TOPICAL 1 applic BID ANGELA Administration Ondansetron HCl 4 mg 03/05/24 01:12 03/05/24 13:42 Ondansetron Inj 4 Mg/2 Ml Vial IV PUSH 4 mg Q4H PRN Administration Nausea Polyethylene Glycol 17 gm 03/10/24 09:00 03/12/24 08:28 Polyethylene Glycol 3350 17 Gm Powd.Pack PO 17 gm BID ANGELA Administration Senna/Docusate Sodium 1 tab 03/05/24 04:31 Senna/Docusate Sodium Tablet PO HS PRN CONSTIPATION Senna/Docusate Sodium 2 tab 03/09/24 21:00 03/11/24 20:28 Senna/Docusate Sodium Tablet PO 2 tab HS ANGELA Administration Spironolactone 25 mg 03/05/24 09:00 03/12/24 08:28 Spironolactone 25 Mg Tablet PO 25 mg DAILY ANGELA Administration Tamsulosin HCl 0.4 mg 03/05/24 09:00 03/12/24 08:27 Tamsulosin Hcl 0.4 Mg Capsule PO 0.4 mg QAM ANGELA Administration Radiology Results: ITS Impressions Foot X-Ray 03/05/24 05:36 Impression: No definite radiographic evidence for osteomyelitis. Soft tissue swelling of the forefoot, especially dorsally. Foot MRI 03/06/24 13:53 IMPRESSION: No evidence for osteitis or abscess. Prominent, diffuse subcutaneous soft tissue edema. Probable mild nonspecific myositis. Mild degenerative changes in the toes. Ankle MRI 03/06/24 14:40 IMPRESSION: 1. No evidence of osteomyelitis. Labs Labs: Laboratory Results - last 24 hr 03/12/24 06:34 WBC 10.1 H RBC 3.52 L Hgb 9.5 L Hct 30.5 L MCV 86.6 MCH 27.0 MCHC 31.1 L RDW 14.2 Plt Count 354 MPV 9.8 Immature Gran % (Auto) 1.8 H Neut % (Auto) 78.9 H Lymph % (Auto) 5.8 L [place] % (Auto) 8.9 H Eos % (Auto) 3.9 Baso % (Auto) 0.7 Lymph # (Auto) 0.59 L [place] # (Auto) 0.9 H Eos # (Auto) 0.4 H Baso # (Auto) 0.1 Abs Immat Gran (auto) 0.18 H Absolute Neuts (auto) 8.0 H Absolute Nucleated RBC 0.000 Nucleated RBC % 0.0 Sodium 128 L Potassium 3.2 L Chloride 87 L Carbon Dioxide 35 H Anion Gap 6 BUN 51 H Creatinine 2.30 H Estim Creat Clear Calc 39 Estimated GFR 28 L Glucose 107 Calcium 9.5 Magnesium 1.9 Total Bilirubin 0.7 AST 16 L ALT 9 Alkaline Phosphatase 62 Total Protein 7.0 Albumin 3.7 Quality VTE Prophylaxis VTE prophylaxis: pharmacologic ordered Hospitalist [facility] Advance Care Plan I have confirmed that the patient's Advanced Care Plan is present, code status is documented, or surrogate decision maker is listed in patient medical record.: Yes Medication Reconciliation I have utilized all available resources to obtain, update and review the patients current medications (includes all prescriptions, OTC, herbals, cannabis, and nutritional supplements).: Yes
[2024-03-12] MEDS: HYDROmorphone HCL INJ (*CRX) 1 MG/ML SYR IV PUSH ×2 (11:18→14:49)
[2024-03-12 14:00] VITALS: BP 126/65; PULSE 66; RESP 18; TEMP 36.8; O2SAT 90
[2024-03-12] MEDS: levoFLOXacin 750 MG TABLET PO (14:49)
[2024-03-12] MEDS: MAGNESIUM OXIDE 400 MG TABLET PO (17:17)
[2024-03-12] MEDS: POTASSIUM CHLORIDE 20 MEQ ER TABLET 40 MEQ PO (17:17)
[2024-03-12] MEDS: LINEZOLID 600 MG TABLET PO (17:17)
[2024-03-12] MEDS: HYDROcodone/acetaminophen (*CRX) 10-325 MG TABLET 1 TAB PO (21:02)
[2024-03-12] MEDS: SENNA/DOCUSATE SODIUM TABLET 2 TAB PO (21:03)
[2024-03-12 21:45] VITALS: PULSE 92; O2SAT 99
[2024-03-12 22:00] VITALS: BP 138/65; PULSE 92; RESP 18; TEMP 36.4; O2SAT 100
[2024-03-13 05:42] VITALS: BP 115/56; PULSE 83; RESP 20; TEMP 36.1; O2SAT 98
[2024-03-13] MEDS: LEVOTHYROXINE SODIUM 100 MCG TABLET 200 MCG PO (05:56)
[2024-03-13 06:18] LABS: Basophils Absolute Auto 0.1 K/mm3 (0.0-0.1); Basophils Percent Auto 0.6 % (0.2-1.2); Eosinophils Absolute Auto 0.4 K/mm3 (0-0.3); Eosinophils Percent Auto 3.1 % (0-4.4); Hematocrit 29.6 % (42.0-52.0); Hemoglobin 9.5 g/dL (14.0-18.0); Immature Granulocyte Absolute 0.17 K/mm3 (0.00-0.031); Immature Granulocyte Percent A 1.4 % (0-0.5); Lymphocytes Absolute Auto 0.57 K/mm3 (0.9-3.2); Lymphocytes Percent Auto 4.8 % (18.3-44.2); Mean Corpuscular HGB Conc 32.1 g/dl (32-36); Mean Corpuscular Hemoglobin 27.6 pg (26-34); Mean Platelet Volume 10.2 fl (7.4-10.4); Monocytes Absolute Auto 0.9 K/mm3 (0.1-0.6); Monocytes Percent Auto 7.8 % (2.6-8.5); Neutrophils Absolute Auto 9.8 K/mm3 (1.3-6.7); Neutrophils Percent Auto 82.3 % (45.5-73.1); Platelet Count Result 361 k/mm3 (150-375); Red Blood Count 3.44 M/mm3 (4.6-6.20); Red Cell Distribution Width 14.3 % (11.5-14.5); White Blood Count 11.9 K/mm3 (4.5-10.0)
[2024-03-13] MEDS: metOLazone 5 MG TABLET PO (08:58)
[2024-03-13] MEDS: APIXABAN 5 MG TABLET PO ×2 (08:59→22:05)
[2024-03-13] MEDS: acetaZOLAMIDE TAB 250 MG TABLET PO (08:59)
[2024-03-13] MEDS: calcitrioL 0.25 MCG CAPSULE PO (08:59)
[2024-03-13] MEDS: GABAPENTIN 300 MG CAPSULE PO ×3 (08:59→17:52)
[2024-03-13] MEDS: BUMETANIDE 1 MG TABLET PO ×3 (08:59→17:52)
[2024-03-13] MEDS: LORATADINE 10 MG TABLET PO (08:59)
[2024-03-13] MEDS: LINEZOLID 600 MG TABLET PO ×2 (08:59→22:04)
[2024-03-13] MEDS: minoxidiL 10 MG TABLET PO (08:59)
[2024-03-13] MEDS: TAMSULOSIN HCL 0.4 MG CAPSULE PO (08:59)
[2024-03-13] MEDS: SPIRONOLACTONE 25 MG TABLET PO (08:59)
--- NOTE | 2024-03-13 09:00 | PCNWS ---
Weekly nutritional screen. Patient is tolerating current diet with adequate intake, 25-100% meals with 75% average last 48 hours. No weight loss reported. No nutritional needs at this time.
[2024-03-13 09:02] VITALS: PULSE 80
[2024-03-13] MEDS: EUCERIN CREAM 120 GM JAR 1 APPLIC TOPICAL ×2 (09:02→17:54)
[2024-03-13] MEDS: METOPROLOL TARTRATE 50 MG TAB PO ×2 (09:02→22:05)
[2024-03-13] MEDS: HYDROcodone/acetaminophen (*CRX) 5-325 MG TABLET 1 TAB PO (09:05)
--- NOTE | 2024-03-13 09:09 | P.PNIM_ITS ---
Progress Note: A&P Assessment and Plan (1) Venous stasis ulcer of right lower extremity: Code(s): I83.019 - Varicose veins of right lower extremity with ulcer of unspecified site; L97.919 - Non-pressure chronic ulcer of unspecified part of right lower leg with unspecified severity Status: Acute Assessment and Plan: On admission, white blood cell count 12.9 , ESR 95, CRP 15.8 Initially on Cefepime and doxy, switched to levaquin and doxy but staph is resistant Wound culture 12/05 grew pseudomonas and staph aureus Patient has allergies to both Bactrim and PCN * wound care following * general surgery consulted for possible debridement * Stop doxy. Start Linezolid, plan 7 day course * Blood cultures showing no growth to date on preliminary read * Continue dressing changes daily * Continue wound care of daily with cleaning with soap and water, applying anti- fungal powder and as it is draining, applying Hydroferal Blue dressing with ABD pad and gauze. * Right leg arterial duplex 03/08 Wound cultures 1. Pseudomonas aeruginosa M.I.C. RX --------- --- Amikacin 4 S Ceftazidime >=64 R Ciprofloxacin 0.25 S Levofloxacin 0.5 S Imipenem 2 S Meropenem <=0.25 S 2. Staphylococcus aureus M.I.C. RX --------- --- Vancomycin 1 S Ciprofloxacin >=8 R Clindamycin >=8 R Levofloxacin >=8 R Erythromycin >=8 R Gentamicin <=0.5 S Oxacillin 0.5 S Tetracycline >=16 R Trimethoprim/Sulfamethoxazole <=10 S Moxifloxacin 4 R 03/12 Right arterial duplex 1. Increased velocity gradient between superficial femoral artery and popliteal artery, consistent with at least moderate stenosis. 2. Lower leg arteries not visualized. (2) Self-care deficit: Code(s): Z78.9 - Other specified health status Status: Acute Assessment and Plan: Patient unable to get out of bed independently so unsafe for home, though he would prefer to go home. Agreeable to SN (3) JENA (acute kidney injury): Code(s): N17.9 - Acute kidney failure, unspecified Status: Chronic Assessment and Plan: baseline creatinine 1.7 to 2.2 * continue to trend * Renal function stable today with CR/BUN of 2.10/43 respectively. He appears to be at baseline. Will reassess. * creatinine 2.20, EGFR 29 (4) Chronic congestive heart failure: Qualifiers: Heart failure type: combined systolic and diastolic Qualified Code(s): I50.42 - Chronic combined systolic (congestive) and diastolic (congestive) heart failure Code(s): I50.9 - Heart failure, unspecified Status: Chronic Assessment and Plan: Home meds: Bumetanide 1mg TID, spironolactone 25 daily, metolazone 5mg 4 times a week. Also on diamox 250mg daily TTE 04/23/2022 showed Normal LV systolic function with an estimated EF of 65- 70%, grade 1 diastolic dysfunction. * Continue home meds, on home doses above * Daily weights * Accurate I&O (5) Atrial fibrillation: Qualifiers: Atrial fibrillation type: longstanding persistent Qualified Code(s): I48.11 - Longstanding persistent atrial fibrillation Code(s): I48.91 - Unspecified atrial fibrillation Status: Chronic Assessment and Plan: Home meds: Eliquis and metoprolol 50 q12 * Pt remains rate controlled. * Continue Eliquis. (6) BPH (benign prostatic hyperplasia): Code(s): N40.0 - Benign prostatic hyperplasia without lower urinary tract symptoms Status: Chronic Assessment and Plan: Home med: Flomax * voiding well * Continue home flomax Subjective Date/time seen: 03/13/24 09:09 Interval history: Discuss earlier follow up with outpatient vascular Agreeable to SNF since unable to get up on his own yet. Still needs to work with therapy Exam Narrative: CONSTITUTIONAL: Obese, male pt lying supine in bed at this time without any overt distress. He is pleasant. HENMT: Head is atraumatic and normocephalic. MMM, Patent oropharynx without any edema, erythema or exudate. EYES: PERRLA NECK: FROM in supple manner RESPIRATORY: CTAB without adventitious sounds. CARDIOVASCULAR: Regularly irregular without any m,r,g,h or displacement of PMI. GI: Rotund, BS+x4 quads. NT without any guarding, rebound. : Deferred SKIN: Right foot with open wounds. Wound dressed but visible bloody drainage as well. JAVED and draining on a pad. Multiple areas of skin breakdown without any necrosis. NEURO: Non-focal exam. Generalized weakness present. EXTREMITY: BLE edematous and warm to touch. Open wounds to the RLE foot. PSYCH: Pleasant, alert and oriented x4 with normal affect. Objective Data Vital Signs Vital Signs: Vital Signs - 24 hr 03/12/24 10:40 03/12/24 14:00 03/12/24 20:00 Temperature 98.3 F Pulse Rate 66 Respiratory Rate 18 Blood Pressure 126/65 Pulse Oximetry 90 Oxygen Delivery Room Air Room Air 03/12/24 21:36 03/12/24 21:45 03/12/24 22:00 Temperature 97.5 F L Pulse Rate 92 92 Respiratory Rate 18 Blood Pressure 138/65 Pulse Oximetry 99 100 Oxygen Delivery CPAP CPAP 03/13/24 05:42 03/13/24 09:02 Temperature 97.0 F L Pulse Rate 83 80 Respiratory Rate 20 Blood Pressure 115/56 L Pulse Oximetry 98 Oxygen Delivery Intake/Output Intake/Output: Intake & Output 03/10/24 03/11/24 03/12/24 03/13/24 23:59 23:59 23:59 23:59 Intake Total 774 1280 1870 100 Output Total 2825 1925 2475 800 [facility] -[phone] Meds/Results Medications: Active Medications Generic Name Dose Route Start Last Admin Trade Name Freq PRN Reason Stop Dose Admin Acetaminophen 650 mg 03/05/24 01:12 03/05/24 12:24 Acetaminophen 325 Mg Tablet PO 650 mg Q4H PRN Administration Mild Pain (1-3) or Fever Hydrocodone Bitart/Acetaminophen 1 tab 03/05/24 12:46 03/13/24 09:05 Hydrocodone/Acetaminophen (*Crx) 5-325 Mg Tablet PO 1 tab Q4H PRN Administration Pain Rated 4-6 Hydrocodone Bitart/Acetaminophen 1 tab 03/05/24 12:46 03/12/24 21:02 Hydrocodone/Acetaminophen (*Crx) 10-325 Mg Tablet PO 1 tab Q4H PRN Administration Pain Rated 7-10 Acetazolamide 250 mg 03/05/24 09:00 03/13/24 08:59 Acetazolamide Tab 250 Mg Tablet PO 250 mg DAILY ANGELA Administration Allopurinol 100 mg 03/05/24 08:00 03/05/24 07:52 Allopurinol 100 Mg Tablet PO 100 mg DAILY@0800 ANGELA Administration Apixaban 5 mg 03/05/24 09:00 03/13/24 08:59 Apixaban 5 Mg Tablet PO 5 mg Q12HR ANGELA Administration Bisacodyl 10 mg 03/12/24 21:00 03/12/24 21:06 Bisacodyl 10 Mg Suppository RECTAL Not Given HS [facility] Bumetanide 1 mg 03/05/24 09:00 03/13/24 08:59 Bumetanide 1 Mg Tablet PO 1 mg TID ANGELA Administration Calcitriol 0.25 mcg 03/06/24 09:00 03/13/24 08:59 Calcitriol 0.25 Mcg Capsule PO 0.25 mcg MoWeFr [facility] Administration Fluticasone Propionate 1 spray 03/05/24 04:31 03/05/24 07:51 Fluticasone Propionate 0.05% Na Spr 16 Gm Btl (*Bkc) NASAL 1 spray DAILY PRN Administration Congestion Gabapentin 300 mg 03/05/24 09:00 03/13/24 08:59 Gabapentin 300 Mg Capsule PO 300 mg TID ANGELA Administration Hydromorphone HCl 1 mg 03/06/24 11:13 03/12/24 14:49 Hydromorphone Hcl Inj (*Crx) 1 Mg/Ml Syr IV PUSH 1 mg Q3H PRN Administration Breakthrough pain Levofloxacin 750 mg 03/12/24 15:00 03/12/24 14:49 Levofloxacin 750 Mg Tablet PO 750 mg Q48H ANGELA Administration Levothyroxine Sodium 200 mcg 03/05/24 06:30 03/13/24 05:56 Levothyroxine Sodium 100 Mcg Tablet PO 200 mcg DAILY@0630 [facility] Administration Linezolid 600 mg 03/12/24 18:00 03/13/24 08:59 Linezolid 600 Mg Tablet PO 600 mg Q12HR ANGELA Administration Loratadine 10 mg 03/05/24 09:00 03/13/24 08:59 Loratadine 10 Mg Tablet PO 10 mg DAILY ANGELA Administration Metolazone 5 mg 03/06/24 09:00 03/13/24 08:58 Metolazone 5 Mg Tablet PO 5 mg MoWeSa [facility] Administration Metoprolol Tartrate 50 mg 03/05/24 09:00 03/13/24 09:02 Metoprolol Tartrate 50 Mg Tab PO 50 mg Q12HR ANGELA Administration Minoxidil 10 mg 03/05/24 09:00 03/13/24 08:59 Minoxidil 10 Mg Tablet PO 10 mg DAILY ANGELA Administration Multi-Ingred Cream/Lotion/Oil/Oint 1 applic 03/05/24 09:00 03/13/24 09:02 Eucerin Cream 120 Gm Jar TOPICAL 1 applic BID ANGELA Administration Ondansetron HCl 4 mg 03/05/24 01:12 03/05/24 13:42 Ondansetron Inj 4 Mg/2 Ml Vial IV PUSH 4 mg Q4H PRN Administration Nausea Polyethylene Glycol 17 gm 03/10/24 09:00 03/12/24 17:17 Polyethylene Glycol 3350 17 Gm Powd.Pack PO 17 gm BID ANGELA Administration Senna/Docusate Sodium 1 tab 03/05/24 04:31 Senna/Docusate Sodium Tablet PO HS PRN CONSTIPATION Senna/Docusate Sodium 2 tab 03/09/24 21:00 03/12/24 21:03 Senna/Docusate Sodium Tablet PO 2 tab HS ANGELA Administration Spironolactone 25 mg 03/05/24 09:00 03/13/24 08:59 Spironolactone 25 Mg Tablet PO 25 mg DAILY ANGELA Administration Tamsulosin HCl 0.4 mg 03/05/24 09:00 03/13/24 08:59 Tamsulosin Hcl 0.4 Mg Capsule PO 0.4 mg QAM ANGELA Administration Radiology Results: ITS Impressions Foot X-Ray 03/05/24 05:36 Impression: No definite radiographic evidence for osteomyelitis. Soft tissue swelling of the forefoot, especially dorsally. Foot MRI 03/06/24 13:53 IMPRESSION: No evidence for osteitis or abscess. Prominent, diffuse subcutaneous soft tissue edema. Probable mild nonspecific myositis. Mild degenerative changes in the toes. Ankle MRI 03/06/24 14:40 IMPRESSION: 1. No evidence of osteomyelitis. Duplex Scan Lower Extremity Artery 03/12/24 20:40 IMPRESSION: 1. Increased velocity gradient between superficial femoral artery and popliteal artery, consistent with at least moderate stenosis. 2. Lower leg arteries not visualized. Labs Labs: Laboratory Results - last 24 hr 03/13/24 05:42 WBC 11.9 H RBC 3.44 L Hgb 9.5 L Hct 29.6 L MCV 86.0 MCH 27.6 MCHC 32.1 RDW 14.3 Plt Count 361 MPV 10.2 Immature Gran % (Auto) 1.4 H Neut % (Auto) 82.3 H Lymph % (Auto) 4.8 L [place] % (Auto) 7.8 Eos % (Auto) 3.1 Baso % (Auto) 0.6 Lymph # (Auto) 0.57 L [place] # (Auto) 0.9 H Eos # (Auto) 0.4 H Baso # (Auto) 0.1 Abs Immat Gran (auto) 0.17 H Absolute Neuts (auto) 9.8 H Absolute Nucleated RBC 0.000 Nucleated RBC % 0.0 Quality VTE Prophylaxis VTE prophylaxis: pharmacologic ordered Hospitalist [facility] Advance Care Plan I have confirmed that the patient's Advanced Care Plan is present, code status is documented, or surrogate decision maker is listed in patient medical record.: Yes Medication Reconciliation I have utilized all available resources to obtain, update and review the patients current medications (includes all prescriptions, OTC, herbals, cannabis , and nutritional supplements).: Yes
[2024-03-13 10:35] LABS: Anion Gap 7 mmol/L (4-12); Blood Urea Nitrogen 54 mg/dL (9-20); Calcium 9.8 mg/dL (8.4-10.2); Carbon Dioxide 35 mmol/L (22-30); Chloride 86 mmol/L (98-107); Estimated CRCL calculation 37 ml/min; Estimated Glomerular Filt Rate 27; Glucose 107 mg/dL (65-110); Phosphorus 4.6 mg/dL (2.5-4.5); Potassium 3.3 mmol/L (3.4-5.0); Sodium 128 mmol/L (137-145)
--- NOTE | 2024-03-13 12:17 | P.DS_ITS ---
DS: Admitting Diagnosis Discharge Date 03/13/24 Admitting Diagnosis Venous stasis ulcer of right lower extremity Leukocytosis JENA DS: Discharge Diagnosis Discharge Diagnosis (1) AMELIA (obstructive sleep apnea): Code(s): G47.33 - Obstructive sleep apnea (adult) (pediatric) Status: Acute (2) Hypothyroidism: Qualifiers: Hypothyroidism type: acquired Qualified Code(s): E03.9 - Hypothyroidism, unspecified Code(s): E03.9 - Hypothyroidism, unspecified Status: Acute (3) Peripheral polyneuropathy: Code(s): G62.9 - Polyneuropathy, unspecified Status: Acute (4) CKD (chronic kidney disease) stage 3, GFR 30-59 ml/min: Qualifiers: Chronic kidney disease stage 3 subtype: stage 3b (GFR 30-44) Qualified Code(s): N18.32 - Chronic kidney disease, stage 3b Code(s): N18.3 - Chronic kidney disease, stage 3 (moderate) Status: Acute (5) Chronic congestive heart failure: Qualifiers: Heart failure type: combined systolic and diastolic Qualified Code(s): I50.42 - Chronic combined systolic (congestive) and diastolic (congestive) heart failure Code(s): I50.9 - Heart failure, unspecified Status: Chronic (6) Venous stasis ulcer of right lower extremity: Code(s): I83.019 - Varicose veins of right lower extremity with ulcer of unspecified site; L97.919 - Non-pressure chronic ulcer of unspecified part of right lower leg with unspecified severity Status: Acute (7) Peripheral vascular disease: Code(s): I73.9 - Peripheral vascular disease, unspecified Status: Acute DS: Summary Hospital Course Reason for hospitalization: Copied from [facility] 03/05: 74-year-old gentleman with history of CHF, AFib, PVD and nonhealing venous ulcers to right lower extremity who presents emergency department chief complaint of wounds to the right lower extremity. Patient states that he has is grandson do his wound care on days that the wound nurse is not available. Yesterday he had the wound nurse come and see him she said that he needed to go to the hospital due to increased pain, drainage and erythema. Patient complains of shooting stabbing pain. Patient states that he does not walk however he does stand pivot to chair. Patient denies nausea vomiting fever chills Hospital Course: Venous stasis ulcer of right lower extremity PVD: On admission, white blood cell count 12.9 , ESR 95, CRP 15.8 Initially on Cefepime and doxy, switched to levaquin and doxy but staph resistant so switched to Levaquin/linezolid Wound culture 12/05 grew pseudomonas and staph aureus Patient has allergies to both Bactrim and PCN Wound care followed. General surgery consulted and he did not require surgical intervention during admission. Wound care was consulted and continued local wound care. --Linezolid 600mg BID 03/12-03/19 --Follow up with the wound care clinic, --Follow up with vascular surgery. Discussed following up earlier if appointment available given chronicity of wound. ? --Continue daily dressing changes: Cleanse with soap and water, applying anti- fungal powder and as it is draining, applying Hydroferal Blue dressing with ABD pad and gauze. 03/12 Right arterial duplex 1. Increased velocity gradient between superficial femoral artery and popliteal artery, consistent with at least moderate stenosis. 2. Lower leg arteries not visualized. 03/08 Wound cultures 1. Pseudomonas aeruginosa M.I.C. RX --------- --- Amikacin 4 S Ceftazidime >=64 R Ciprofloxacin 0.25 S Levofloxacin 0.5 S Imipenem 2 S Meropenem <=0.25 S 2. Staphylococcus aureus M.I.C. RX --------- --- Vancomycin 1 S Ciprofloxacin >=8 R Clindamycin >=8 R Levofloxacin >=8 R Erythromycin >=8 R Gentamicin <=0.5 S Oxacillin 0.5 S Tetracycline >=16 R Trimethoprim/Sulfamethoxazole <=10 S Moxifloxacin 4 R Self-care deficit: Patient unable to get out of bed independently so unsafe for home, though he would prefer to go home. Agreeable to SN JENA on CKD. Prior baseline creatinine 1.7-2.2. Peaked at 2.6 2.4 at discharge so reduced metolazone dose. Hypokalemia --Hold metolazone 03/13 (previously taking 5mg 5 times a week), resume a lower dose in 1 week if creatinine stable --Continued bumex 1mg TID and spironolactone. If creatinine trending up would reduce diuretics further --Continue spironolactone 25mg daily --Diamox 250mg daily --Added daily potassium. May need to increase. Recheck BMP in 1 week. ? Chronic congestive heart failure: ?Heart failure type: combined systolic and diastolic ? Home meds: Bumetanide 1mg TID, spironolactone 25 daily, metolazone 5 times a week. ?Also on diamox 250mg daily TTE 04/23/2022 showed Normal LV systolic function with an estimated EF of 65- 70%, grade 1 diastolic dysfunction. --Continue home meds Bumex 1mg TID, spironolactone 25mg --Reduced metolazone from 5mg 5 times a week to 2.5mg daily --Added daily potassium 10meq daily. --Daily weights. Atrial fibrillation type: longstanding persistent & rate controlled Home meds: Eliquis and metoprolol 50 q12. Stable, continued BPH (benign prostatic hyperplasia): ?Home med: Flomax, continued during admission and on discharge.? Voiding well Acute on Chronic pain: Pain to back and chronic abdominal pain Flexeril changed to methocarbamol 500mg BID prn while on zyvox Vicodin 10/325mg prn for pain to wound, especially with dressing changes Continue tylenol prn Avoid NSAIDs with JENA AMELIA: Continue home CPAP Status at Discharge Cognitive/behavioral status at discharge: A&Ox4 Time Spent with Patient Time attestation: Total time spent providing and/or coordinating discharge services:65 minutes Exam Narrative: CONSTITUTIONAL: Obese, male pt lying supine in bed at this time without any overt distress. He is pleasant. HENMT: Head is atraumatic and normocephalic. MMM, Patent oropharynx without any edema, erythema or exudate. EYES: PERRLA NECK: Nontender, supple RESPIRATORY: CTAB without adventitious sounds. CARDIOVASCULAR: Regularly irregular without any m,r,g,h or displacement of PMI. GI: Rotund, BS+x4 quads. no guarding or rebound. Reducible hernia, mildly tender to palpation (patient reports chronic) : Deferred SKIN: Right foot with open wounds. Wound dressed, intermittently small bloody drainage. OPTION TRADER and draining on a pad. Multiple areas of skin breakdown without any necrosis. NEURO: Alert & Oriented. Generalized weakness present. Chronic LE weakness from prior spinal injury EXTREMITY: BLE edematous and warm to touch. Open wounds to the RLE foot. PSYCH: Pleasant, alert and oriented x4 with normal affect. DS: Data Data Completed and Pending Labs on day of discharge: Labs from last 24 hours 03/13/24 05:42 WBC 11.9 H RBC 3.44 L Hgb 9.5 L Hct 29.6 L MCV 86.0 MCH 27.6 MCHC 32.1 RDW 14.3 Plt Count 361 MPV 10.2 Immature Gran % (Auto) 1.4 H Neut % (Auto) 82.3 H Lymph % (Auto) 4.8 L [place] % (Auto) 7.8 Eos % (Auto) 3.1 Baso % (Auto) 0.6 Lymph # (Auto) 0.57 L [place] # (Auto) 0.9 H Eos # (Auto) 0.4 H Baso # (Auto) 0.1 Abs Immat Gran (auto) 0.17 H Absolute Neuts (auto) 9.8 H Absolute Nucleated RBC 0.000 Nucleated RBC % 0.0 Sodium 128 L Potassium 3.3 L Chloride 86 L Carbon Dioxide 35 H Anion Gap 7 BUN 54 H Creatinine 2.40 H Estim Creat Clear Calc 37 Estimated GFR 27 L Glucose 107 Calcium 9.8 Phosphorus 4.6 H Magnesium 2.0 Preliminary micro results at discharge 03/08/24 09:45 Anaerobic Culture - Preliminary Other Discharge Plan Discharge Attending physician on discharge: Loni Barnett Consulting providers: Kandy Jose Discharging Clinician: Loni Barnett Anticipated Discharge Date/Time: 03/13/24 13:30 Patient Disposition: SNF Activity: no shower Diet: low sodium and other - see discharge instructions Wound Care Instructions: follow printed instructions and change dressing daily Discharge Instructions: Follow up with your PCP after discharge from detention. Follow up with Dr. Perez, Vascular Surgery [phone]. You should also schedule follow up at the wound clinic [phone] You will need labs in 1 week to check your potassium and kidney function Per Care Coordination: [facility] to resume ([phone]). WOUND CARE INSTRUCTIONS: Daily wash Right foot wounds with soap and water. 1.Place Hydrofera Blue Ready foam for wounds that are in between the toes and on the top of the foot 2. Cover with an ABD pad 3. Wrap with kerlex. Dressing should be changed daily, you may have to change the ABD pad and kerlex multiple times a day based on drainage amount When patient is sitting in a chair, he should have his feet elevated as much as possible to help with lymphedema. For any questions regarding patient's wound care, please contact the wound center at [phone]. Patient is scheduled for doppler studies at [facility] with his vascular surgeon on 04/27/2024. Patient Instructions: Apixaban (By mouth) Patient Language: Albanian Stand Alone Forms: General Discharge Information Follow-up/Referrals: other [Other] - Call for Appointment (Follow up with Dr. Perez as scheduled in May unless an earlier appointment is available) Lilliana Tomas NP [Primary Care Provider] - (Follow up after discharge from SNF) Discharge Medications: New linezolid 600 mg Tablet 600 mg PO Q12HR Qty: 12 0RF methocarbamol 500 mg Tablet 500 mg PO BID Qty: 30 0RF hydrocodone-acetaminophen 10-325 mg tablet 1 tablet PO Q8H PRN (Reason: pain) Qty: 5 0RF Continued loratadine [Claritin] 10 mg tablet 10 mg PO DAILY fluticasone propionate [Flonase Allergy Relief] 50 mcg/actuation spray,suspension 1 spray intranasal DAILY PRN (Reason: Congestion) Rx Instructions: administer into each nostril Eliquis 5 mg tablet 5 mg PO Q12HR Qty: 180 1RF Patient Comments: metoprolol tartrate 50 mg tablet 50 mg PO Q12HR Qty: 180 1RF acetazolamide 250 mg tablet 250 mg PO DAILY minoxidil 10 mg tablet 10 mg PO DAILY calcitriol 0.25 mcg capsule 0.25 mcg PO 3XW Qty: 36 3RF Rx Instructions: take on Saturday, Saturday, Fridays Minerin Creme Cream 1 applic topical BID Qty: 113 0RF Rx Instructions: Apply to jackie lower legs polyethylene glycol 3350 [Miralax] 17 gram/dose Powder 17 g PO DAILY PRN (Reason: Constipation) sennosides-docusate sodium [Senokot-S] 8.6-50 mg Tablet 1 tab-cap PO HS PRN (Reason: CONSTIPATION) Qty: 1 0RF bumetanide 1 mg tablet 1 mg PO TID acetaminophen 325 mg tablet 500 mg PO Q4H PRN (Reason: Mild Pain (1-3) Or Fever) allopurinol 100 mg tablet 100 mg PO DAILY@0800 Qty: 30 0RF Rx Instructions: NEEDS APPOINTMENT FOR FURTHER REFILLS gabapentin 300 mg capsule 300 mg PO TID Qty: 270 0RF docusate sodium 100 mg Capsule 100 mg PO Q12H Qty: 30 0RF levothyroxine 200 mcg tablet 200 mcg PO DAILY spironolactone 25 mg tablet 25 mg PO DAILY Qty: 30 0RF tamsulosin 0.4 mg capsule 0.4 mg PO QAM Qty: 90 3RF Discontinued metolazone 2.5 mg tablet 5 mg PO 4XW Qty: 30 6RF Rx Instructions: Take on Saturday, Wednesdays, Fridays, and Saturdays nystatin 100,000 unit/gram powder 1 applic topical BID Qty: 60 1RF Other Ambulatory Orders: Basic Metabolic Panel (Routine) Timeframe: 1 Week Location: Determined by Patient Ordered By: Loni Barnett Complete Blood Count with Diff (Routine) Timeframe: 1 Week Location: Determined by Patient Ordered By: Loni Barnett Date of admission: 03/06/24 14:22 Primary Care Provider: Lilliana Tomas Admitting Provider: Panda Kc Attending physician on admission: Loni Barnett Condition: Stable Quality VTE Prophylaxis VTE prophylaxis: pharmacologic ordered Hospitalist MIPS Heart Failure (Exclusion) Patient has history of Heart Transplant or Left Ventricular Assistive Device?: Yes IF YES, STOP HERE Heart Failure (Qualifier) Patient has current or prior documentation of LVEF less than or equal to 40%, or mod/servere depressed LVSF?: Yes IF NO, STOP HERE If Yes, Heart Failure (Qualifier) Patient was prescribed or already taking an Angiotensin-Converting Enzyme (LIBERTY) Inhibitor, or Antiotensin Receptor Cahterine (ARB): No Patient was prescribed or already taking bisoprolol, carvedilol, or sustained release metoprolol succinate: Yes If Medications not prescribed/taking Reason patient not prescribed/taking LIBERTY or ARB: Medical reasons: allergy, intolerance, contraindication or other
[2024-03-13 14:00] VITALS: BP 100/59; PULSE 85; RESP 20; TEMP 36.3; O2SAT 95
[2024-03-13] MEDS: HYDROcodone/acetaminophen (*CRX) 10-325 MG TABLET 1 TAB PO ×2 (15:02→22:06)
[2024-03-13] MEDS: polyethylene glycoL 3350 17 GM POWD.PACK PO (17:53)
--- NOTE | 2024-03-13 18:20 | P.PNIM_ITS ---
Progress Note: A&P Assessment and Plan (1) AMELIA (obstructive sleep apnea): Code(s): G47.33 - Obstructive sleep apnea (adult) (pediatric) Status: Acute (2) Hypothyroidism: Qualifiers: Hypothyroidism type: acquired Qualified Code(s): E03.9 - Hypothyroidism, unspecified Code(s): E03.9 - Hypothyroidism, unspecified Status: Acute (3) Peripheral polyneuropathy: Code(s): G62.9 - Polyneuropathy, unspecified Status: Acute (4) CKD (chronic kidney disease) stage 3, GFR 30-59 ml/min: Qualifiers: Chronic kidney disease stage 3 subtype: stage 3b (GFR 30-44) Qualified Code(s): N18.32 - Chronic kidney disease, stage 3b Code(s): N18.3 - Chronic kidney disease, stage 3 (moderate) Status: Acute (5) Chronic congestive heart failure: Qualifiers: Heart failure type: combined systolic and diastolic Qualified Code(s): I50.42 - Chronic combined systolic (congestive) and diastolic (congestive) heart failure Code(s): I50.9 - Heart failure, unspecified Status: Chronic Assessment and Plan: Home meds: Bumetanide 1mg TID, spironolactone 25 daily, metolazone 5mg 4 times a week. Also on diamox 250mg daily TTE 04/23/2022 showed Normal LV systolic function with an estimated EF of 65- 70%, grade 1 diastolic dysfunction. * Continue home meds, on home doses above * Daily weights * Accurate I&O (6) Venous stasis ulcer of right lower extremity: Code(s): I83.019 - Varicose veins of right lower extremity with ulcer of unspecified site; L97.919 - Non-pressure chronic ulcer of unspecified part of right lower leg with unspecified severity Status: Acute Assessment and Plan: On admission, white blood cell count 12.9 , ESR 95, CRP 15.8 Initially on Cefepime and doxy, switched to levaquin and doxy but staph is resistant Wound culture 12/05 grew pseudomonas and staph aureus Patient has allergies to both Bactrim and PCN * wound care following * general surgery consulted for possible debridement * Stop doxy. Start Linezolid, plan 7 day course * Blood cultures showing no growth to date on preliminary read * Continue dressing changes daily * Continue wound care of daily with cleaning with soap and water, applying anti- fungal powder and as it is draining, applying Hydroferal Blue dressing with ABD pad and gauze. * Right leg arterial duplex 03/08 Wound cultures 1. Pseudomonas aeruginosa M.I.C. RX --------- --- Amikacin 4 S Ceftazidime >=64 R Ciprofloxacin 0.25 S Levofloxacin 0.5 S Imipenem 2 S Meropenem <=0.25 S 2. Staphylococcus aureus M.I.C. RX --------- --- Vancomycin 1 S Ciprofloxacin >=8 R Clindamycin >=8 R Levofloxacin >=8 R Erythromycin >=8 R Gentamicin <=0.5 S Oxacillin 0.5 S Tetracycline >=16 R Trimethoprim/Sulfamethoxazole <=10 S Moxifloxacin 4 R 03/12 Right arterial duplex 1. Increased velocity gradient between superficial femoral artery and popliteal artery, consistent with at least moderate stenosis. 2. Lower leg arteries not visualized. (7) Peripheral vascular disease: Code(s): I73.9 - Peripheral vascular disease, unspecified Status: Acute Time Spent With Patient Time: 67 minutes Subjective Date/time seen: 03/13/24 18:20 Interval history: Discuss earlier follow up with outpatient vascular Agreeable to [facility] since unable to get up on his own yet. Still needs to work with therapy Review of Systems Review of Systems: 12 systems were reviewed and are negativ e except for as per HPI. All systems reviewed & are unremarkable except as noted in HPI and below Constitutional: Constitutional: Reports as per HPI and Reports no additional constitutional complaints Eyes: Eyes: Reports as per HPI and Reports no additional eye complaints ENT: Reports system reviewed and no additional complaints, except as documented and Reports as per HPI Cardiovascular: Cardiovascular: Reports as per HPI and Reports no additional cardiovascular complaints Respiratory: Respiratory: Reports as per HPI and Reports no additional respiratory complaints Gastrointestinal: Gastrointestinal: Reports as per HPI and Reports no additional gastrointestinal complaints Genitourinary: Genitourinary: Reports no additional male genitourinary complaints and Reports as per HPI Musculoskeletal: Musculoskeletal: Reports no additional musculoskeletal complaints and Reports as per HPI Integumentary/Breasts: Skin/Breast: Reports system reviewed and no additional complaints, except as docu and Reports as per HPI Neurologic: Reports system reviewed and no additional complaints, except as documented and Reports as per HPI Psychiatric: Psychiatric: Reports no additional psychiatric complaints and Reports as per HPI Exam Narrative: CONSTITUTIONAL: Obese, male pt lying supine in bed at this time without any overt distress. He is pleasant. HENMT: Head is atraumatic and normocephalic. MMM, Patent oropharynx without any edema, erythema or exudate. EYES: PERRLA NECK: Nontender, supple RESPIRATORY: CTAB without adventitious sounds. CARDIOVASCULAR: Regularly irregular without any m,r,g,h or displacement of PMI. GI: Rotund, BS+x4 quads. no guarding or rebound. Reducible hernia, mildly tender to palpation (patient reports chronic) : Deferred SKIN: Right foot with open wounds. Wound dressed, intermittently small bloody drainage. OVERNIGHT CASHIER and draining on a pad. Multiple areas of skin breakdown without any necrosis. NEURO: Alert & Oriented. Generalized weakness present. Chronic LE weakness from prior spinal injury EXTREMITY: BLE edematous and warm to touch. Open wounds to the RLE foot. PSYCH: Pleasant, alert and oriented x4 with normal affect. Objective Data Vital Signs Vital Signs: Vital Signs - 24 hr 03/12/24 20:00 03/12/24 21:36 03/12/24 21:45 Temperature Pulse Rate 92 Respiratory Rate Blood Pressure Pulse Oximetry 99 Oxygen Delivery Room Air CPAP CPAP 03/12/24 22:00 03/13/24 05:42 03/13/24 08:00 Temperature 97.5 F L 97.0 F L Pulse Rate 92 83 Respiratory Rate 18 20 Blood Pressure 138/65 115/56 L Pulse Oximetry 100 98 Oxygen Delivery Room Air 03/13/24 09:02 03/13/24 14:00 Temperature 97.3 F L Pulse Rate 80 85 Respiratory Rate 20 Blood Pressure 100/59 L Pulse Oximetry 95 Oxygen Delivery Intake/Output Intake/Output: Intake & Output 03/10/24 03/11/24 03/12/24 03/13/24 23:59 23:59 23:59 23:59 Intake Total 774 1280 1870 1877 Output Total 5149 3936 1509 1500 [facility]2051 [phone] Meds/Results Medications: Active Medications Generic Name Dose Route Start Last Admin Trade Name Freq PRN Reason Stop Dose Admin Acetaminophen 650 mg 03/05/24 01:12 03/05/24 12:24 Acetaminophen 325 Mg Tablet PO 650 mg Q4H PRN Administration Mild Pain (1-3) or Fever Hydrocodone Bitart/Acetaminophen 1 tab 03/05/24 12:46 03/13/24 09:05 Hydrocodone/Acetaminophen (*Crx) 5-325 Mg Tablet PO 1 tab Q4H PRN Administration Pain Rated 4-6 Hydrocodone Bitart/Acetaminophen 1 tab 03/05/24 12:46 03/13/24 15:02 Hydrocodone/Acetaminophen (*Crx) 10-325 Mg Tablet PO 1 tab Q4H PRN Administration Pain Rated 7-10 Acetazolamide 250 mg 03/05/24 09:00 03/13/24 08:59 Acetazolamide Tab 250 Mg Tablet PO 250 mg DAILY ANGELA Administration Allopurinol 100 mg 03/05/24 08:00 03/05/24 07:52 Allopurinol 100 Mg Tablet PO 100 mg DAILY@0800 ANGELA Administration Apixaban 5 mg 03/05/24 09:00 03/13/24 08:59 Apixaban 5 Mg Tablet PO 5 mg Q12HR ANGELA Administration Bisacodyl 10 mg 03/12/24 21:00 03/12/24 21:06 Bisacodyl 10 Mg Suppository RECTAL Not Given HS [facility] Bumetanide 1 mg 03/05/24 09:00 03/13/24 17:52 Bumetanide 1 Mg Tablet PO 1 mg TID ANGELA Administration Calcitriol 0.25 mcg 03/06/24 09:00 03/13/24 08:59 Calcitriol 0.25 Mcg Capsule PO 0.25 mcg MoWeFr [facility] Administration Fluticasone Propionate 1 spray 03/05/24 04:31 03/05/24 07:51 Fluticasone Propionate 0.05% Na Spr 16 Gm Btl (*Bkc) NASAL 1 spray DAILY PRN Administration Congestion Gabapentin 300 mg 03/05/24 09:00 03/13/24 17:52 Gabapentin 300 Mg Capsule PO 300 mg TID ANGELA Administration Hydromorphone HCl 0.5 mg 03/13/24 14:52 Hydromorphone Hcl Inj (*Crx) 1 Mg/Ml Syr IV PUSH ONCE PRN pain Levofloxacin 750 mg 03/12/24 15:00 03/12/24 14:49 Levofloxacin 750 Mg Tablet PO 03/14/24 23:59 750 mg Q48H ANGELA Administration Levothyroxine Sodium 200 mcg 03/05/24 06:30 03/13/24 05:56 Levothyroxine Sodium 100 Mcg Tablet PO 200 mcg DAILY@0630 ANGELA Administration Linezolid 600 mg 03/12/24 18:00 03/13/24 08:59 Linezolid 600 Mg Tablet PO 03/19/24 09:01 600 mg Q12HR ANGELA Administration Loratadine 10 mg 03/05/24 09:00 03/13/24 08:59 Loratadine 10 Mg Tablet PO 10 mg DAILY [facility] Administration Methocarbamol 500 mg 03/13/24 14:05 Methocarbamol 500 Mg Tablet PO QID PRN spasms or back pain Metolazone 2.5 mg 03/14/24 09:00 Metolazone 2.5 Mg Tablet PO DAILY [facility] Metoprolol Tartrate 50 mg 03/05/24 09:00 03/13/24 09:02 Metoprolol Tartrate 50 Mg Tab PO 50 mg Q12HR ANGELA Administration Minoxidil 10 mg 03/05/24 09:00 03/13/24 08:59 Minoxidil 10 Mg Tablet PO 10 mg DAILY [facility] Administration Multi-Ingred Cream/Lotion/Oil/Oint 1 applic 03/05/24 09:00 03/13/24 17:54 Eucerin Cream 120 Gm Jar TOPICAL 1 applic BID ANGELA Administration Ondansetron HCl 4 mg 03/05/24 01:12 03/05/24 13:42 Ondansetron Inj 4 Mg/2 Ml Vial IV PUSH 4 mg Q4H PRN Administration Nausea Polyethylene Glycol 17 gm 03/10/24 09:00 03/13/24 17:53 Polyethylene Glycol 3350 17 Gm Powd.Pack PO 17 gm BID ANGELA Administration Senna/Docusate Sodium 1 tab 03/05/24 04:31 Senna/Docusate Sodium Tablet PO HS PRN CONSTIPATION Senna/Docusate Sodium 2 tab 03/09/24 21:00 03/12/24 21:03 Senna/Docusate Sodium Tablet PO 2 tab HS ANGELA Administration Spironolactone 25 mg 03/05/24 09:00 03/13/24 08:59 Spironolactone 25 Mg Tablet PO 25 mg DAILY ANGELA Administration Tamsulosin HCl 0.4 mg 03/05/24 09:00 03/13/24 08:59 Tamsulosin Hcl 0.4 Mg Capsule PO 0.4 mg QAM ANGELA Administration Radiology Results: ITS Impressions Foot X-Ray 03/05/24 05:36 Impression: No definite radiographic evidence for osteomyelitis. Soft tissue swelling of the forefoot, especially dorsally. Foot MRI 03/06/24 13:53 IMPRESSION: No evidence for osteitis or abscess. Prominent, diffuse subcutaneous soft tissue edema. Probable mild nonspecific myositis. Mild degenerative changes in the toes. Ankle MRI 03/06/24 14:40 IMPRESSION: 1. No evidence of osteomyelitis. Duplex Scan Lower Extremity Artery 03/12/24 20:40 IMPRESSION: 1. Increased velocity gradient between superficial femoral artery and popliteal artery, consistent with at least moderate stenosis. 2. Lower leg arteries not visualized. Labs Labs: Laboratory Results - last 24 hr 03/13/24 05:42 WBC 11.9 H RBC 3.44 L Hgb 9.5 L Hct 29.6 L MCV 86.0 MCH 27.6 MCHC 32.1 RDW 14.3 Plt Count 361 MPV 10.2 Immature Gran % (Auto) 1.4 H Neut % (Auto) 82.3 H Lymph % (Auto) 4.8 L [place] % (Auto) 7.8 Eos % (Auto) 3.1 Baso % (Auto) 0.6 Lymph # (Auto) 0.57 L [place] # (Auto) 0.9 H Eos # (Auto) 0.4 H Baso # (Auto) 0.1 Abs Immat Gran (auto) 0.17 H Absolute Neuts (auto) 9.8 H Absolute Nucleated RBC 0.000 Nucleated RBC % 0.0 Sodium 128 L Potassium 3.3 L Chloride 86 L Carbon Dioxide 35 H Anion Gap 7 BUN 54 H Creatinine 2.40 H Estim Creat Clear Calc 37 Estimated GFR 27 L Glucose 107 Calcium 9.8 Phosphorus 4.6 H Magnesium 2.0 Quality VTE Prophylaxis VTE prophylaxis: pharmacologic ordered Hospitalist [facility] Advance Care Plan I have confirmed that the patient's Advanced Care Plan is present, code status is documented, or surrogate decision maker is listed in patient medical record.: Yes Medication Reconciliation I have utilized all available resources to obtain, update and review the patients current medications (includes all prescriptions, OTC, herbals, cannabis, and nutritional supplements).: Yes
[2024-03-13 21:57] VITALS: BP 116/58; PULSE 85; RESP 17; TEMP 36.2; O2SAT 100
[2024-03-13] MEDS: methocarbamoL 500 MG TABLET PO (22:04)
[2024-03-13] MEDS: SENNA/DOCUSATE SODIUM TABLET 1 TAB PO (22:05)
[2024-03-13] MEDS: ONDANSETRON INJ 4 MG/2 ML VIAL IV PUSH (23:31)
== END 2024-03-13 23:50 | DRG 300 ==
LOC: ANHED 03-05 01:13 → ANH3MEDSUR 03-05 02:18
PROVIDERS: Nurse Practitioner; Nurse Practitioner Acute Care; Admitting Provider Internal Medicine; Emergency Provider Emergency Medicine; PCP Nurse Practitioner Family; Visit Provider Nurse Practitioner Acute Care
DX: I87.2 Venous insufficiency (chronic) (peripheral) (principal); I13.0 Hypertensive heart and chronic kidney disease with heart failure and stage 1 through stage 4 chronic kidney disease, or unspecified chronic kidney disease; L03.115 Cellulitis of right lower limb; N17.9 Acute kidney failure, unspecified; I50.42 Chronic combined systolic (congestive) and diastolic (congestive) heart failure; I48.11 Longstanding persistent atrial fibrillation; L97.519 Non-pressure chronic ulcer of other part of right foot with unspecified severity; N18.30 Chronic kidney disease, stage 3 unspecified; I89.0 Lymphedema, not elsewhere classified; I73.9 Peripheral vascular disease, unspecified; B96.5 Pseudomonas (aeruginosa) (mallei) (pseudomallei) as the cause of diseases classified elsewhere; B95.61 Methicillin susceptible Staphylococcus aureus infection as the cause of diseases classified elsewhere; E87.6 Hypokalemia; E78.5 Hyperlipidemia, unspecified; E03.9 Hypothyroidism, unspecified; K21.9 Gastro-esophageal reflux disease without esophagitis; L71.8 Other rosacea; N40.0 Benign prostatic hyperplasia without lower urinary tract symptoms; M54.50 Low back pain, unspecified; G89.29 Other chronic pain; G47.33 Obstructive sleep apnea (adult) (pediatric); G62.9 Polyneuropathy, unspecified; Z87.891 Personal history of nicotine dependence; Z79.01 Long term (current) use of anticoagulants
CPT/HCPCS: 36415; 73630; 73720; 73723; 80048; 80053; 80202; 81003; 83735; 84100; 84145; 85025; 85610; 85652; 85730; 86140; 87040; 87070; 87075; 87181; 87186; 87205; 93926; 96361; 96365; 96366; 96375; 96376; 97110; 97162; 97530; 99212; 99285; A9270; A9577; G0378; G0463; J0692; J0696; J1171; J2405; J3370; J7030

== ENCOUNTER 2024-05-13 14:05 | Inpatient (IN) | payer MEDICARE, SELFPAY ==
[2024-05-13] VITALS (13 sets, daily range): BP systolic 109–137; BP diastolic 57–73; PULSE 80–105; RESP 12–21; TEMP 36.2–36.9; O2SAT 95–100; BMI 47.0
--- NOTE | ~2024-05-13 | XR_ITS ---
HISTORY: foot infxn COMPARISON: Reference is made to a contrast-enhanced MRI examination dated 03/06/2024 TECHNIQUE: 3 views of the right foot were performed FINDINGS: No acute fracture or dislocation is appreciated. Significant degenerative disease is noted. Diffuse bony demineralization is present. Periarticular osteopenia is also noted along with increased cortical thickness within the metatarsals , 2 through 5. Significant soft tissue swelling is noted along the dorsum of the forefoot. Soft tissue defect along the lateral margin of the forefoot. Ossification of the insertion of the Achilles tendon is present. Large calcaneal spur is noted. Vascular calcifications are also present. IMPRESSION: Significant degenerative disease and soft tissue swelling. No acute fracture. No cortical erosions are present. Reviewed, dictated and finalized at location A. [facility]
--- NOTE | 2024-05-13 14:37 | ECG_ITS ---
Test Date: 2024-05-13 17:43:28 Measurements Intervals Solomon Rate: 83 P: 0 SD: 0 QRS: -82 QRSD: 158 T: 72 QT: 423 QTc: 497 Interpretive Statements ATRIAL FIBRILLATION RIGHT BUNDLE BRANCH BLOCK LEFT ANTERIOR FASCICULAR BLOCK BASELINE ARTIFACT- V3-V4 ABNORMAL ECG Compared to ECG 12/03/2023 01:45:02 ECTOPIC ATRIAL RHYTHM NO LONGER PRESENT Electronically Signed On 05-14-2024 05:36:40 RECESSING MACHINE OPERATOR by Reid Hubbard D.O.
--- OUTSIDE RECORDS SUMMARY | 2024-05-13 14:47 | XMS_ITS | Clinical Summary ---
Author Organization [facility] Address [address] [place] [id number] Care Team Providers Care Director [place] [employer] Name Role Phone Taco Ho MD Primary Care Provider [phone] Social History Tobacco Use Types Packs/Day Years Used Date Smoking Tobacco: Never Assessed Sex and Gender Information Value Date Recorded Sex Assigned at Not on file Legal Sex Male 7:28 PM CDT Gender Identity Not on file Sexual Orientation Not on file Last Filed Vital Signs Vital Sign Reading Time Taken Comments Blood Pressure 132/76 05/05/2013 11:08 AM SQL ANALYST Pulse 80 05/05/2013 11:08 AM SQL ANALYST Temperature - - Respiratory Rate - - Oxygen Saturation - - Inhaled Oxygen Concentration - - Weight 154.2 kg (340 lb) 05/05/2013 11:08 AM SQL ANALYST Height 185.4 cm (6' 1 ) 05/05/2013 11:08 AM SQL ANALYST Body Mass Index 44.86 05/05/2013 11:08 AM SQL ANALYST Plan of Treatment Health Maintenance Due Date Last Done Comments Colorectal Cancer Screening Colonoscopy (10 Years) 1949 Hepatitis C 1967 DTaP, Tdap and Td Vaccines ( 1 - Tdap) 02/09/1968 Zoster Vaccines (1 of 2) 1999 Pneumococcal Vaccine: 65+ Ye ars (1 of 1 - PCV) 2014 COVID-19 Vaccine ( - 2023-2 5 season) 2023 Influenza Adult (#1) 2023 RSV Immunization or 60+ Years (1 - 1-dose 75+ series) 02/09/2024 Meningococcal B Vaccine Aged Out No l onger eligible based on patient's age to complete this topic Meningococcal Vaccine Aged Out No naresh jovanny eligible based on patient's age to complete this topic RSV Immunizations Under 20 Months Aged Out No longer eligible based on patient's age to complete this topic Care Teams Director [place] Sales Relationship Specialty Start Date End Date Taco Ho MD [address] [place] [address] PCP - General 10/24/12
--- OUTSIDE RECORDS SUMMARY | 2024-05-13 14:47 | XMS_ITS | Referral Summary ---
Author Organization [facility] Address [address] [place] [address] Care Team Providers Care Take Off Worker Name Role Phone Taco Ho MD Primary Care Provider [phone] Source Comments [facility],non-[facility] Affiliates and Associated Physician Practices is amultiple site organization consisting of ambulatory clinics and hospital sitesin [place], [place], [place] and [place]. This disclosure is being madepursuant to the Care Everywhere program and may not contain all information available regarding this patient. Last updated 17.[facility] Allergies Active Allergy Reactions Criticality Noted Date Comments Codeine Nausea and/or Vomiting 07/29/2021 Hydrocodone Unknown 07/29/2021 Penicillins Swelling 07/29/2021 Sulfa Drugs Nausea and/or Vomiting 07/29/2021 Tramadol Unknown 07/29/2021 Medications * Be aware that medications may not be up to date on this document. Alwaysverify current medications with the patient. Medication Sig Dispensed Refills Start Date End Date Status acetaZOLAMIDE (DIAMOX) 250 MG tablet Take 500 mg by mouth 2 times daily 07/24/2021 Active ELIQUIS 5 MG tablet Take 5 mg by mouth every 12 hours 07/24/2021 Active bumetanide (BUMEX) 2 MG tablet TAKE 1 TABLET BY MOUTH 2 TIMES A DAY. 07/24/2021 Active fluticasone propionate (FLONASE) 50 MCG/ACT nasal spray [place] 1 spray into the nose once daily Active metoprolol tartrate (LOPRESSOR) 50 MG tablet Take 50 mg by mouth every 12 hours 07/24/2021 Active minoxidil (LONITEN) 2.5 MG tablet Take 5 mg by mouth once daily 07/24/2021 Active nitroGLYCERIN (NITROSTAT) 0.4 MG tablet TAKE 1 TABLET SUBLINGUAL EVERY 5 MINUITES NEEDED FOR CHEST PAIN 07/24/2021 Active predniSONE (DELTASONE) 10 MG tablet PLEASE SEE ATTACHED FOR DETAILED DIRECTIONS 07/29/2020 Active tamsulosin (FLOMAX) 0.4 MG capsule Take 0.4 mg by mouth every morning 07/24/2021 Active aspirin (ASPIRIN) 81 MG chew tablet Take 1 (one) tablet by mouth once daily 30 tablet 08/11/2021 Active acetaminophen (TYLENOL) 325 MG tablet Take 2 (two) tablets by mouth every 8 hours Maximum allowable Acetaminophen amount = 4 Grams (4000 mg) / 24 hours. 90 tablet 08/11/2021 Active gabapentin (NEURONTIN) 300 MG capsule Take 1 (one) capsule by mouth 3 times daily 90 capsule 08/11/2021 Active lidocaine (LIDODERM) 5 % patch Apply 1 (one) patch to skin every 24 hours 30 patch 08/11/2021 Active polyethylene glycol 3350 (MIRALAX) 17 g packet Take 17 (seventeen) g by mouth once daily as needed for Constipation 30 packet 08/11/2021 Active senna (SENOKOT) 8.6 MG tablet Take 1 (one) tablet by mouth once daily as needed for Constipation 30 tablet 08/11/2021 Active levothyroxine (SYNTHROID) 200 MCG tablet Take 1 (one) tablet by mouth once daily 30 tablet 08/11/2021 Active alendronate (FOSAMAX) 10 MG tablet Take 7 (seven) tablets by mouth every 7 days 30 tablet 08/11/2021 Active furosemide (LASIX) 40 MG tablet Take 1 (one) tablet by mouth once daily 30 tablet 08/11/2021 Active benzonatate (TESSALON) 100 MG capsule Take 1 (one) capsule by mouth 3 times daily 90 capsule 08/11/2021 Active guaiFENesin ER 12hr (MUCINEX) 600 MG tablet Take 1 (one) tablet by mouth every 12 hours 60 tablet 08/11/2021 Active lidocaine viscous (XYLOCAINE) 2 % solution 5 mL by Mouth/Throat route once daily as needed for Sore Throat (Throat irritation/cough) 100 mL 08/11/2021 Active oxyCODONE-acetami nophen (Percocet) 2.5-325 MG tablet Take 1 tablet by mouth every 8 hours as needed for Pain Active Active Problems Problem Noted Date Diagnosed Date Fall 07/28/2021 Right leg pain 07/28/2021 Closed fracture of right distal femur 07/28/2021 Closed bicondylar fracture o f distal femur, right, initial encounter Social History Tobacco Use Types Packs/Day Years Used Date Smoking Tobacco: Former Cigarettes Q uit: 1979 Smokeless Tobacco: Never Tobacco Cessation:Counseling Given: No Alcohol Use Standard Drinks/Week Comments Not Currently 0 (1 standard drink = 0.6 oz pur e alcohol) stopped a year ago AUDIT-C Answer Date Recorded Q1: How often do you have a drink containing alcohol? Never 07/29/2021 Q2: How many drinks containi ng alcohol do you have on a typical day when you are drinking? Patient does not drink Q3: How often do you have si x or more drinks on one occasion? Never 07/29/2021 Hunger Vital Sign Answer Date Recorded Within the past 12 months, y ou worried that your food would run out before you got the money to buy more. Never true 08/01/19 22 Within the past 12 months, t he food you bought just didn't last and you didn't have money to get more. Never true 07/31/2021 Sex and Gender Information Value Date Recorded Sex Assigned at Not on file Gender Identity Not on file Sexual Orientation Not on file Last Filed Vital Signs Vital Sign Reading Time Taken Comments Blood Pressure 110/52 08/11/2021 4:17 PM CDT Pulse 82 08/11/2021 4:17 PM CDT Temperature 37.2 C (98.9 F) 08/11/2021 8:06 AM CDT Respiratory Rate 20 08/11/2021 4:17 PM CDT Oxygen Saturation 100% 08/11/2021 4:17 PM CDT Inhaled Oxygen Concentration 36% 07/29/2021 3 :01 AM CDT Weight 149.7 kg (330 lb) 12/12/2021 1:49 PM CDT Height 185.4 cm (6' 1 ) 12/12/2021 1:49 PM CDT Body Mass Index 43.54 12/12/2021 1:49 PM CDT Functional Status Functional Status Response Date of Assess ment Is person deaf or have serious hearing difficult y? No 07/29/2021 Is person blind or have serious difficulty seein g? No 07/29/2021 Does person have serious dif ficulty walking/climbing stairs? Yes 07/29/2021 Does person have difficulty dressing/bathing? No 07/29/2021 Does person have difficulty doing errands alone? Yes 07/29/2021 Cognitive Status Response Date of Assessm ent Does person have difficulty concentrating/remembering/making decisions? Yes 07/29/2021 Plan of Treatment Not on file Medical Devices Implanted Type Area Crystalizer Operator Device Identifier Shelf Expiration Date Model / Serial / Lot Biomet Polyax Proximal Tibial/Distal Femoral Locking Plating System 5.5mm Ft Polyu Locking Screws Implanted:Qty: 2 on 08/02/2021 by Anibal Pressley DO at [facility] Right: Femur [id number] / / Biomet Polyax Proximal Tibial/Distal Femoral Locking Plating System 8.0mm Cannulated Locking Screw Implanted:Qty: 1 on 08/02/2021 by Anibal Pressley DO at [facility] Right: [employer] [id number] / / Biomet Polyax Proximal Tibial/Distal Femoral Locking Plating System 4.5mm Solid Cortical Bone Screw, Ft Implanted:Qty: 2 on 08/02/2021 by Anibal Pressley DO at [facility] Right: Femur [id number] / / Biomet Polyax Proximal Tibial/Distal Femoral Locking Plating System 5.5mm Ft Polyu Locking Screws Implanted:Qty: 1 on 08/02/2021 by Anibal Pressley DO at [facility] Right: Femur [id number] / / Biomet Polyax Proximal Tibial/Distal Femoral Locking Plating System 5.5mm Ft Polyu Locking Screws Implanted:Qty: 1 on 08/02/2021 by Anibal Pressley DO at [facility] Right: Femur [id number] / / Wire K 1.6mm 6in Hlf Bynt Pnt Ss Fx Implanted:Qty: 2 on 08/02/2021 by Anibal Pressley DO at [facility] [employer] [id number] / / Screw 3.5mm 5mm 60mm Ft Rvrs Cut Flut Implanted:Qty: 1 on 08/02/2021 by Anibal Pressley DO at [facility] Right: Femur [employer] [id number] / / Screw 3.5mm 5mm 80mm Ft Rvrs Cut Flut Implanted:Qty: 1 on 08/02/2021 by Anibal Pressley DO at [facility] Right: Femur [employer] [id number] / / Plate 9 Hl Lck Precontr Fem Rt Dist Implanted:Qty: 1 on 08/02/2021 by Anibal Pressley DO at [facility] Right: Femur [employer] [id number] / / Screw 3.5mm 5mm 85mm Ft Rvrs Cut Flut Implanted:Qty: 1 on 08/02/2021 by Anibal Pressley DO at [facility] Right: Femur [employer] [id number] / / Screw 3.5mm 5mm 90mm Ft Rvrs Cut Flut Implanted:Qty: 1 on 08/02/2021 by Anibal Pressley DO at [facility] Right: Femur [employer] [id number] / / Biomet Polyax Proximal Tibiasl/Distal Femoral Lociking Plating System 5.5 Mm Ft Poly Locking Screw Implanted:Qty: 2 on 08/02/2021 by Anibal Pressley DO at [facility] Right: [employer] [id number] / / Biomet Polyax Proximal Tibial/Diatal Femoral Locking Plating System 4.5mm Solid Cortical Bone Screw, Ft Implanted:Qty: 1 on 08/02/2021 by Anibal Pressley DO at [facility] Right: Fem[employer] [id number] / / Explanted Type Area Crystalizer Operator Device Identifier Shelf Expiration Date Model / Serial / Lot Wire K 2mm 228mm Troc Pnt [facility] Plate Explanted:Qty: 2 on 08/02/2021 at [facility] Right: Femur [employer] 01/13/2031 [id number] / / [id number] Biomet Polyax Proximal Tibial/Distal Femoral Locking Plating System 5.5mm Ft Polyu Locking Screws Explanted:Qty: 2 on 08/02/2021 by Anibal Pressley DO at [facility] Right: Femur [id number] / / Biomet Polyax Proximal Tibial/Distal Femoral Locking Plating System 5.5mm Ft Polyu Locking Screws Explanted:Qty: 2 on 08/02/2021 by Anibal Pressley DO at [facility] Right: Femur [id number] / / Gd Pin Orth 3.2mm Polyax Fem Clbrt Lck Explanted:Qty: 1 on 08/02/2021 at [facility] [employer] [id number] / / Wshr Orth Ss 3.5-4 Mm Cecilia Screw Nonster Explanted:Qty: 3 on 08/02/2021 at [facility] [employer] [id number] / / Screw 3.5mm 5mm 85mm Ft Rvrs Cut Flut Explanted:Qty: 1 on 08/02/2021 by Anibal Pressley DO at [facility] Right: Femur [employer] [id number] / / Procedures Procedure Name Priority Date/Time Associated Diagnosis Comments HEPATITIS C AB SCREEN RFLX NAAT QUANT STAT 07/28/2021 1:43 PM CDT from Last 3 Months or Most Recently Relevant to Health Maintenance Results * HEPATITIS C AB SCREEN RFLX NAAT QUANT (07/28/2021 1:43 PM CDT) Hepatitis C Antibody Non-react oma Non-reac tive 07/28/2021 2:31 PM CDT [facility] Comment:Hepatitis C Antibody screen indicates no serologic evidence of past or current infection with Hepatitis C Virus. Patients with unexplained liver disease who are immunocompromised or suspected of having acute Hepatitis C infection may benefit from Nucleic Acid Test (SOWMYA) for Hepatitis C Viral RNA to confirm Hepatitis C status. Blood BLOOD SPECIMEN / Unknown Venipuncture / Unknown 07/28/2021 1:43 PM CDT 07/28/2021 1:49 PM CDT Ross Nelson MD LAB - CHEMISTRY PRATEEK CAMEJO [facility] Organization Address City/State/ZIP Co de Phone Number [facility] [address] [place] [address], [facility] [phone] from Last 3 Months or Most Recently Relevant to Health Maintenance Advance Directives * Full Code (Latest Code Status on File) Date Activated Date Inactivated Comments 07/29/2021 1:11 AM 08/11/2021 10:19 PM Care Teams Take Off Worker Relationship Specialty Start Date End Date Taco Ho MD [address] [place] [address] PCP - General 08/07/21
--- OUTSIDE RECORDS SUMMARY | 2024-05-13 14:47 | XMS_ITS | Clinical Summary ---
Author Organization [facility] Address [address] [place] [address] Care Team Providers Care Taping Supervisor Name Role Phone Taco Ho MD Primary Care Provider [phone] Source Comments [facility],non-[facility] Affiliates and Associated Physician Practices is amultiple site organization consisting of ambulatory clinics and hospital sitesin [place], [place], [place] and [place]. This disclosure is being madepursuant to the Care Everywhere program and may not contain all information available regarding this patient. Last updated 17.[facility] Allergies Active Allergy Reactions Criticality Noted Date [...] fluticasone propionate (FLONASE) 50 MCG/ACT nasal spray [place] 1 spray into the nose once daily [...] o f distal femur, right, initial encounter Family History Medical History Relation Name Comments Hypertension Father Relation Name Status Comments Father Social History Tobacco Use Types Packs/Day Years Used Date Smoking Tobacco: Former Cigarettes Q uit: 1978 Smokeless Tobacco: Never Tobacco Cessation:Counseling Given: No [...] Mass Index 43.54 12/12/2021 1:49 PM CDT Plan of Treatment Health Maintenance Due Date Last Done Comments COLOGUARD (AGES 45-75) - COL ON CA SCREENING 1950 COLON MONITORING 1949 COLONOSCOPY - COLON CA SCREENING 1949 CT COLONOGRAPHY - COLON CA SCREENING 1950 Colorectal Cancer Screening 1950 FIT - COLON CA SCREENING 1949 FLEX SIG - COLON CA SCREENING 1949 LIPID TESTING 1950 MEDICARE AWV 12 MONTHS 1949 DTAP/TDAP/TD VACCINES (1 - Tdap) 02/09/1968 PNEUMOCOCCAL VACCINE 50+ (1 of 1 - PCV) 1999 ZOSTER VACCINE (1 of 2) 1999 COVID-19 VACCINE (1 - 2023-2 5 season) 2023 INFLUENZA VACCINE (#1) 2023 , 06/14/2014 Respiratory Syncytial Virus (RSV) Vaccine Pt: or over 60 yrs (1 - 1-dose 75+ series) 02/09/2024 DEPRESSION SCREENING 04/01/2024 HEPATITIS C SCREENING Completed 07/28/2021 HEPATITIS B VACCINE Aged Out No longe r eligible based on patient's age to complete this topic HIB VACCINE Aged Out No longer eligi ble based on patient's age to complete this topic HPV VACCINE Aged Out No longer eligi ble based on patient's age to complete this topic MENINGOCOCCAL (Group B) VACCINE Aged Out No longer eligible b ased on patient's age to complete this topic MENINGOCOCCAL VACCINE Aged Out No naresh jovanny eligible based on patient's age to complete this topic Medical Devices Implanted Type Area Continuous Process Machine Operator Device Identifier Shelf Expiration Date Model / Serial / Lot Biomet Polyax Proximal Tibial/Distal Femoral Locking Plating System 5.5mm Ft Polyu Locking Screws Implanted:Qty: 2 on 08/02/2021 by Anibal Pressley DO at [facility] Right: Femur [id number] / / Biomet Polyax Proximal Tibial/Distal Femoral Locking Plating System 8.0mm Cannulated Locking Screw Implanted:Qty: 1 on 08/02/2021 by Anibal Pressley DO at [facility] Right: Fem[employer] [id number] / / Biomet Polyax Proximal Tibial/Distal Femoral Locking Plating System 4.5mm Solid Cortical Bone Screw, Ft Implanted:Qty: 2 on 08/02/2021 by Anibal Pressley DO at [facility] Right: Femur [id number] / / Biomet Polyax Proximal Tibial/Distal Femoral Locking Plating System 5.5mm Ft Polyu Locking Screws Implanted:Qty: 1 on 08/02/2021 by Anibal Pressley DO at [facility] Right: Femur [id number] / / Biomet Polyax Proximal Tibial/Distal Femoral Locking Plating System 5.5mm Ft Polyu Locking Screws Implanted:Qty: 1 on 08/02/2021 by Anibal Pressley DO at [facility] Right: Femur [id number] / / Wire K 1.6mm 6in Hlf Bynt Pnt Ss Fx Implanted:Qty: 2 on 08/02/2021 by Anibal Pressley DO at [facility] [employer] [id number] / / Screw 3.5mm 5mm 60mm Ft Rvrs Cut Flut Implanted:Qty: 1 on 08/02/2021 by Anibal Pressley DO at [facility] Right: Femur [employer] [id number] / / Screw 3.5mm 5mm 80mm Ft Rvrs Cut Flut Implanted:Qty: 1 on 08/02/2021 by Anibal Pressley DO at [facility] Right: Femur [employer] [id number] / / Plate 9 Hl Lck Precontr Fem Rt Dist Implanted:Qty: 1 on 08/02/2021 by Anibal Pressley DO at [facility] Right: Femur [employer] [id number] / / Screw 3.5mm 5mm 85mm Ft Rvrs Cut Flut Implanted:Qty: 1 on 08/02/2021 by Anibal Pressley DO at [facility] Right: Femur [employer] [id number] / / Screw 3.5mm 5mm 90mm Ft Rvrs Cut Flut Implanted:Qty: 1 on 08/02/2021 by Anibal Pressley DO at [facility] Right: Femur [employer] [id number] / / Biomet Polyax Proximal Tibiasl/Distal Femoral Lociking Plating System 5.5 Mm Ft Poly Locking Screw Implanted:Qty: 2 on 08/02/2021 by Anibal Pressley DO at [facility] Right: [employer] [id number] / / Biomet Polyax Proximal Tibial/Diatal Femoral Locking Plating System 4.5mm Solid Cortical Bone Screw, Ft Implanted:Qty: 1 on 08/02/2021 by Anibal Pressley DO at [facility] Right: Fem[employer] [id number] / / Explanted Type Area Continuous Process Machine Operator Device Identifier Shelf Expiration Date Model / Serial / Lot Wire K 2mm 228mm Troc Pnt Ss Prlc Plate Explanted:Qty: 2 on 08/02/2021 at [facility] Right: [employer]ur [employer] 01/13/2031 [id number] / / [id number] Biomet Polyax Proximal Tibial/Distal Femoral Locking Plating System 5.5mm Ft Polyu Locking Screws Explanted:Qty: 2 on 08/02/2021 by Anibal Pressley DO at [facility] Right: Femur [id number] / / Biomet Polyax Proximal Tibial/Distal Femoral Locking Plating System 5.5mm Ft Polyu Locking Screws Explanted:Qty: 2 on 08/02/2021 by Anibal Pressley DO at [facility] Right: Femur [id number] / / Gd Pin Orth 3.2mm Polyax Fem Clbrt Lck Explanted:Qty: 1 on 08/02/2021 at [facility] [employer] [id number] / / Wshr Orth Ss 3.5-4 Mm Cecilia Screw Nonster Explanted:Qty: 3 on 08/02/2021 at [facility] [employer] [id number] / / Screw 3.5mm 5mm 85mm Ft Rvrs Cut Flut Explanted:Qty: 1 on 08/02/2021 by Anibal Pressley DO at [facility] Right: Femur [employer] [id number] / / Procedures Procedure Name Priority Date/Time Associated Diagnosis Comments HEPATITIS C AB SCREEN RFLX NAAT QUANT STAT 07/28/2021 1:43 PM CDT from Last 3 Months or Most Recently Relevant to Health Maintenance Results * HEPATITIS C AB SCREEN RFLX NAAT QUANT (07/28/2021 1:43 PM CDT) Hepatitis C Antibody Non-react oma Non-reac tive 07/28/2021 2:31 PM CDT [facility] Comment:Hepatitis C Antibody screen indicates [...] Nelson MD LAB - CHEMISTRY PRATEEK CAMEJO [facility] Organization Address City/State/ZIP Co de Phone Number [facility] [address] [place] [address], [facility] [phone] from Last 3 Months or Most Recently Relevant to Health Maintenance Advance Directives * Full Code (Latest Code Status on File) Date Activated Date Inactivated Comments 07/29/2021 1:11 AM 08/11/2021 10:19 PM Care Teams Taping Supervisor Relationship Specialty Start Date End Date Taco Ho MD [address] [place] [address] PCP - General 08/07/21
--- OUTSIDE RECORDS SUMMARY | 2024-05-13 14:47 | XMS_ITS | Referral Summary ---
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 (HCC) 02/25/2024 Telephone [facility] Vascular and Vein Surgery [address] [place] [address] Jose Antonio Perez MD 02/20/2024 1:00 PM AGENT BASED MODELER Office Visit [facility] at [address] [place] [address] Anirudh Wise MD Pericardial effusion (Primary Dx); Chronic heart failure with preserved ejection fraction (CMS/HCC) (HCC); Hypertensive heart disease with chronic diastolic congestive heart failure (CMS/HCC) (HCC); AMELIA treated with BiPAP from Last 3 Months Allergies Active Allergy Reactions Criticality Noted Date Comments Codeine Nausea only,Vomiting Low Other reaction(s): Vomiting Hydrocodone Nausea only,Vomiting,Other (See comments) Low Penicillins Hives,Rash Medium Sulfa (Sulfonamide Antibiotics) Rash Medium Medications minoxidil (LONITEN) 10 mg tablet take 1 tablet by oral route every day 0 0 5 Active levothyroxine (LEVOTHROID) 200 mcg tablet take 1 by Oral route once 0 0 5 Active gabapentin (NEURONTIN) 300 mg capsule take 3 capsule by oral route 2 times every day 0 0 5 Active fluticasone (FLONASE) 50 mcg/actuation nasal spray Administer 1 spray into each nostril daily Active loratadine 10 mg capsule Take by mouth Activ e acetaminophen (TYLENOL) 325 mg tablet Take 2 tablets (650 mg total) by mouth every 6 (six) hours as needed for pain Active psyllium husk (METAMUCIL ORAL) Take by mouth Active tamsulosin (FLOMAX) 0.4 mg extended release capsule Take 1 capsule (0.4 mg total) by mouth every morning Active potassium chloride ER 20 mEq CR tablet Take 1 tablet (20 mEq total) by mouth 3 (three) times a day 2 Tablets TID 3 Active metOLazone (ZAROXOLYN) 5 mg tablet Take 1 tablet (5 mg total) by mouth every 7 days 4 tablet 2 3 Active bumetanide (BUMEX) 1 mg tablet TAKE 3 TABLETS BY MOUTH 3 TIMES DAILY 810 tablet 3 3 Active lansoprazole (PREVACID) 15 mg capsule Take 1 capsule (15 mg total) by mouth daily Active Eliquis 5 mg tablet Take 1 tablet (5 mg total) by mouth 2 (two) times a day 180 tablet 3 3 Active spironolactone (ALDACTONE) 25 mg tablet Take 1 tablet (25 mg total) by mouth daily 90 tablet 2 3 02/20/20 25 Active acetaminophen 325 mg capsule Take by mouth A ctive diazePAM (VALIUM) 2 mg tablet Take 0.5 tablets (1 mg total) by mouth 2 (two) times a day as needed for anxiety Active oxyCODONE 5 mg tablet, oral only Take 5 mg by mouth every 4 (four) hours as needed Active cyclobenzaprine (FLEXERIL) 10 mg tablet Take 1 tablet (10 mg total) by mouth 3 (three) times a day as needed for muscle spasms Active polyethylene glycol (MIRALAX) 17 gram/dose bulk powder Take 17 g by mouth daily Active lanolin-mineral oil-white petrolatum (Minerin Creme) cream Apply topically Acti ve potassium chloride ER 20 mEq CR tablet Take 2 tablets (40 mEq total) by mouth 3 (three) times a day Active metoprolol tartrate (LOPRESSOR) 50 mg immediate release tablet TAKE 1 TABLET BY MOUTH EVERY 12 HOURS 180 tablet 3 4 Active acetaZOLAMIDE (DIAMOX) 250 mg tablet Take 1 tablet (250 mg total) by mouth daily 90 tablet 2 4 Active allopurinoL (ZYLOPRIM) 100 mg tablet Take 1 tablet (100 mg total) by mouth daily Active calcitRIOL (ROCALTROL) 1 mcg/mL solution Take by mouth daily Active docusate sodium (COLACE) 100 mg capsuleIndicati ons:constipatio n Take 1 capsule (100 mg total) by mouth 2 (two) times a day Active famotidine (PEPCID) 20 mg tablet Take 1 tablet (20 mg total) by mouth 2 (two) times a day Active lanolin-mineral oil lotion Apply topically Act oma Saccharomyces boulardii (FLORASTOR) 250 mg capsule Take 1 capsule (250 mg total) by mouth 2 (two) times a day Active HYDROcodone-ramone taminophen (NORCO) 5-325 mg per tabletIndicatio ns:Pain Take 1 tablet by mouth every 6 (six) hours as needed Active potassium chloride ER 10 mEq CR tablet Take 1 tablet/capsule (10 mEq total) by mouth 2 (two) times a day Active senna-docusate (PERICOLACE) 8.6-50 mg Take 1 tablet by mouth daily Active acetaminophen ER (TYLENOL) 650 mg 8 hr tablet Take 1 tablet (650 mg total) by mouth every 8 (eight) hours as needed for pain Active acetaminophen (TYLENOL) 500 mg tablet Take 1 tablet (500 mg total) by mouth every 6 (six) hours as needed for pain Active clindamycin (CLEOCIN) 300 mg capsule Take by mouth 3 (three) times a day Active bisacodyL (DULCOLAX) 10 mg suppositoryIndi cations:constip ation Insert 1 suppository (10 mg total) into the rectum daily Active magnesium hydroxide (MILK OF MAGNESIA) suspension 400 mg/5 mL Active Active Problems Problem Noted Date Diagnosed Date Venous insufficiency of both lower extremities 1 04/06/2023 Assessment & Plan (02/05/2024 11:38 AM AGENT BASED MODELER): Venous insufficiency noted to both lower extremities as evidenced by chronic edema and lipodermatosclerosis, dermatitis to the right lower extremity with open ulceration to the right 2nd and 3rd toes extending up into the dorsum of the foot. Surrounding cellulitis is noted with serous drainage. No purulence noted. He is currently on antibiotics which I recommend continuing at this time as per his PCP. Also recommend referral to a wound center. Patient is requesting [facility] since this is closer for him and he is able to get transportation there. Patient is having difficulty maintaining compression to both legs as he is unable to reach. He may come to need pneumatic compression pumps. Plan: Follow up in 3 months for wound check and a lower extremity arterial Doppler. Hypokalemia 12/21/2022 Chronic heart failure with p reserved ejection fraction (CMS/HCC) 02/14/2021 Ectopic atrial rhythm 11/03/2020 RBBB 11/03/2020 Pulmonary HTN 11/03/2020 Right ventricular dysfunction 12/02/2019 Morbid obesity with BMI of 40.0-44.9, adult 08/0 09/2017 Hypertensive heart and kidney disease 03/23/2015 Overview (07/05/2016): Hypertensive heart and kidney disease with heart failure and chronic kidney disease Hypertensive heart disease with congestive heart failure 03/23/2015 Overview (07/05/2016): Hypertensive heart disease with diastolic heart failure Morbid obesity 07/12/2014 Overview (07/05/2016): Morbid obesity Chest pain 07/12/2014 Overview (07/05/2016): Chest pain AMELIA treated with BiPAP 07/12/2014 Overview (07/05/2016): AMELIA on CPAP Benign hypertension 07/12/2014 Overview (07/05/2016): HTN (hypertension), benign Dyspnea on exertion 07/12/2014 Overview (07/05/2016): MUNOZ (dyspnea on exertion) Pericardial effusion 07/12/2014 Overview (07/05/2016): Idiopathic pericardial effusion Resolved Problems Problem Noted Date Diagnosed Date Resolved Date Chronic diastolic congestive heart failure ([facility]) 02/28/2021 09/27/2022 Chronic right-sided CHF (con gestive heart failure) ([facility]) 11/05/2017 05/13/2018 Social History Tobacco Use Types Packs/Day Years Used Date Smoking Tobacco: Former Alcohol Use Standard Drinks/Week Comments Yes 0 (1 standard drink = 0.6 oz pur e alcohol) Sex and Gender Information Value Date Recorded Sex Assigned at Not on file Legal Sex Male 1:10 PM AGENT BASED MODELER Gender Identity Not on file Sexual Orientation Not on file Last Filed Vital Signs Vital Sign Reading Time Taken Comments Blood Pressure 118/70 02/20/2024 12:58 PM AGENT BASED MODELER Pulse 94 02/20/2024 12:58 PM AGENT BASED MODELER Temperature 36.8 C (98.2 F) 12/25/2019 11:12 AM CDT Respiratory Rate 15 02/04/2020 11:41 AM AGENT BASED MODELER Oxygen Saturation 98% 02/20/2024 12:58 PM AGENT BASED MODELER Inhaled Oxygen Concentration - - Weight 151 kg (333 lb) 02/05/2024 10:54 AM AGENT BASED MODELER Height 185.4 cm (6' 1 ) 02/20/2024 12:58 PM AGENT BASED MODELER Body Mass Index 43.93 02/05/2024 10:54 AM AGENT BASED MODELER Plan of Treatment Not on file Procedures Procedure Name Priority Date/Time Associated Diagnosis Comments US ARTERIAL DOPPLER LOWER EXTREMITY BILATERAL Schedule Routine, Read Routine (OP Routine) 04/27/2024 2:47 PM AGENT BASED MODELER 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 [address] Lower Extremity Arterial Doppler Report Patient Name: IRWIN CYR E : 1950 Study Date: 04/27/2024 1:43:00 PM Gender: M Car Rental Agent: Beverly Barbour RVT Location: [facility] Ref Provider: JOSE ANTONIO PEREZ Quality: Adequate Order Provider: JOSE ANTONIO PEREZ PROCEDURES: Arterial Report: Bilateral lower extremity arterial Doppler exam at rest. INDICATIONS: Recurrent Rt foot wound. HISTORY: Hypertension. Hyperlipidemia. Congestive heart failure. Former smoker. COMPARISONS: The previous exam was completed on 12/03/23 @ [facility]. MEASUREMENTS: Right Value Left Value Rt Brachial Pressure 108 mmHg Lt Brachial Pressure 118 mmHg Rt WELLNESS TRAINER Pressure >200 mmHg Lt WELLNESS TRAINER Pressure >200 mmHg Rt DPA Pressure 0 mmHg Lt DPA Pressure >200 mmHg Rt PT HARIKA Resting >1.69 Lt PT HARIKA Resting >1.69 Rt DP HARIKA Resting 0 Lt DP HARIKA Resting >1.69 - FINDINGS: Right Common Femoral Artery Analysis: The common femoral artery waveform is triphasic. Right Popliteal Artery Analysis: The popliteal waveform is monophasic. Right Posterior Tibial Artery Analysis: The posterior tibial waveform is monophasic. Right Anterior Tibial Artery Analysis: The anterior tibial waveform is absent. Left Common Femoral Artery Analysis: The common femoral artery waveform is triphasic. Left Popliteal Artery Analysis: The popliteal waveform is biphasic. Left Posterior Tibial Artery Analysis: The posterior tibial waveform is monophasic. Left Anterior Tibial Artery Analysis: The anterior tibial waveform is monophasic. Comments: Technically difficult exam due to patient immobility. Exam done in wheelchair. Dampened waveforms due to limb size bilaterally and venous interference. Limited accessibility of right tibial arteries. CONCLUSIONS: 1. Ankle-brachial index of >1.3 is non-compressible which is consistent with arterial calcifications, thus the ankle/brachial index is not obtainable in the bilateral lower extremities. 2. There is evidence of right leg arterial insufficiency at the level of aorta- iliac, common femoral (inflow) arteries and posterior tibial and anterior tibial arteries. 3. There is evidence of left leg arterial insufficiency at the level of posterior tibial and anterior tibial arteries. ATTESTATION: I have reviewed and interpreted the pertinent images and measurements of this study. I attest to the conclusions in the final report that is provided above. Electronically Signed By: Jose Antonio Perez MD [facility] 04/28/2024 10:11:16 AM AGENT BASED MODELER Procedure Note Jose Antonio Perez MD - 04/28/2024 Vascular & Vein Surgery [address] [place] [address] Lower Extremity Arterial Doppler Report Patient Name: IRWIN CYR E : 1950 Study Date: 04/27/2024 1:43:00 PM Gender: M Car Rental Agent: Beverly Barbour RVT Location: [facility] Ref Provider: JOSE ANTONIO PEREZ Quality: Adequate Order Provider: JOSE ANTONIO PEREZ PROCEDURES: Arterial Report: Bilateral lower extremity arterial Doppler exam at rest. INDICATIONS: Recurrent Rt foot wound. HISTORY: Hypertension. Hyperlipidemia. Congestive heart failure. Former smoker. COMPARISONS: The previous exam was completed on 12/03/23 @ [facility]. MEASUREMENTS: Right Value Left Value Rt Brachial Pressure 108 mmHg Lt Brachial Pressure 118 mmHg Rt WELLNESS TRAINER Pressure >200 mmHg Lt WELLNESS TRAINER Pressure >200 mmHg Rt DPA Pressure 0 mmHg Lt DPA Pressure >200 mmHg Rt PT HARIKA Resting >1.69 Lt PT HARIKA Resting >1.69 Rt DP HARIKA Resting 0 Lt DP HARIKA Resting >1.69 - FINDINGS: Right Common Femoral Artery Analysis: The common femoral artery waveform is triphasic. Right Popliteal Artery Analysis: The popliteal waveform is monophasic. Right Posterior Tibial Artery Analysis: The posterior tibial waveform is monophasic. Right Anterior Tibial Artery Analysis: The anterior tibial waveform is absent. Left Common Femoral Artery Analysis: The common femoral artery waveform is triphasic. Left Popliteal Artery Analysis: The popliteal waveform is biphasic. Left Posterior Tibial Artery Analysis: The posterior tibial waveform is monophasic. Left Anterior Tibial Artery Analysis: The anterior tibial waveform is monophasic. Comments: Technically difficult exam due to [facility] immobility[facility] Dampened waveforms due to limb size bilaterally and venous interference. Limitedaccessibility of right tibial arteries. CONCLUSIONS: 1. Ankle-brachial index of >1.3 is non-compressible which is consistentwith arterial calcifications, thus the ankle/brachial index is not obtainable in thebilateral lower extremities. 2. There is evidence of right leg arterial insufficiency at the level ofaorta- iliac, common femoral (inflow) arteries and posterior tibial and anterior tibialarteries. 3. There is evidence of left leg arterial insufficiency at the level ofposterior tibial and anterior tibial arteries. ATTESTATION: I have reviewed and interpreted the pertinent images and measurements ofthis study. I attest to the conclusions in the final report that is provided above. Electronically Signed By: MD RACHEAL Moore 04/28/2024 10:11:16 AM AGENT BASED MODELER Jose Antonio Perez MD [facility] PROCEDURES Final Result from Last 3 Months Insurance MEDICARE RAILROAD MEDICARE RAILROAD MEDICARE SUPPLEMENT Care Teams Car Body Designer Relationship Specialty Start Date End Date Alicia Malcolm MD PCP - General Family Practice 10/31/17
--- OUTSIDE RECORDS SUMMARY | 2024-05-13 14:47 | XMS_ITS | Clinical Summary ---
Author Organization [facility] Address [address], [place] [address] Phone Care Team Providers Care Prawn Trawler Hand Name Role Phone Alicia Malcolm MD Primary Care Provider Allergies Active Allergy Reactions Criticality Noted Date Comments Codeine Nausea Only Low Other reaction(s): Vomiting Hydrocodone Nausea Only,Other (s ee comments) Low Penicillins Hives,Rash Medium Sulfa Antibiotics Rash Medium Medications Medication Sig Dispensed Refills Start Date End Date Status omeprazole (PRILOSEC) [address] capsule 1 tab qday 09/25/2011 Active ergocalciferol (VITAMIN D-2) 71366 units capsule 1 tab/cap every week for 6 weeks, then every month 3 12/30/2013 Active aspirin (ASPIR) 81 MG EC tablet 81 mg 03/23/2015 Active fluticasone (FLONASE) 50 MCG/ACT nasal spray Administer 1 spray into affected nostril(s) daily Active gabapentin (NEURONTIN) 300 MG capsule 300 mg 07/12/2014 Active cholecalciferol (Vitamin D-[address]) 25 MCG (1000 UT) tablet Take 1,000 Units by mouth daily Active naproxen sodium (ALEVE) 220 MG tablet Take 220 mg by mouth 2 times daily Active Loratadine 10 MG capsule Take by mouth Active esomeprazole (NexIUM) [address] capsule Take 40 mg by mouth daily Active minoxidil (LONITEN) 10 MG tablet TAKE 1 TABLET BY MOUTH DAILY 90 tablet 3 01/12/2022 Active furosemide (LASIX) 40 MG tablet TAKE 3 TABLETS BY MOUTH DAILY 270 tablet 3 01/12/2022 Active quinapril (ACCUPRIL) 40 MG tablet TAKE 1 TABLET BY MOUTH DAILY 90 tablet 3 01/12/2022 Active levothyroxine (SYNTHROID) 200 MCG tablet TAKE 1 TABLET BY MOUTH DAILY 90 tablet 3 01/12/2022 Active Active Problems Problem Noted Date Diagnosed Date Ectopic rhythm 11/03/2020 Pulmonary hypertension 11/03/2020 Right bundle-branch block 11/03/2020 Dysfunction of right cardiac ventricle 0 Body mass index 40+ - severely obese 11/05/2017 Hypertensive chronic kidney disease with stage 1 through stage 4 chronic kidney disease, or unspecified chronic kidney disease 06/14/2015 Hypertensive heart disease with congestive heart failure 03/23/2015 Overview (11/22/2018): Overview: Hypertensive heart disease with diastolic heart failure Chest pain 07/12/2014 Overview (11/22/2018): Overview: Chest pain Disease type AND/OR category unknown 07/12/2014 Overview (11/22/2018): Overview: CKD (chronic kidney disease) Dyspnea on exertion 07/12/2014 Overview (11/22/2018): Overview: MUNOZ (dyspnea on exertion) Morbid obesity 07/12/2014 Overview (11/22/2018): Overview: Morbid obesity Obstructive sleep apnea syndrome 07/12/2014 Overview (11/22/2018): Overview: AMELIA on CPAP Pericardial effusion 07/12/2014 Overview (11/22/2018): Overview: Idiopathic pericardial effusion Chronic kidney disease, stage 3 (moderate) 09/17 Benign hypertension 09/18/2011 Overview (11/22/2018): Overview: HTN (hypertension), benign Hypothyroidism 09/18/2011 Gastro-esophageal reflux disease without esophag itis 09/18/2011 Immunizations Name Administration Dates Next Due Influenza TIV (IM) 06/14/2014 Influenza, Injectable, Quadrivalent 01/12/2020 Pneumococcal Conjugate 13-Valent 01/21/2019 Pneumococcal Polysaccharide 01/12/2020 Family History Medical History Relation Comments Kidney disease Neg Hx Kidney stone Neg Hx Social History Tobacco Use Types Packs/Day Years Used Date Smoking Tobacco: Former Smokeless Tobacco: Never Comments:Smoking History Pac ks/day: quit - in 1977 Alcohol Use Standard Drinks/Week Comments Yes 0 (1 standard drink = 0.6 oz pure alcohol) Alcoholic Drinks/day: once a day (beer) Sex and Gender Information Value Date Recorded Sex Assigned at Not on file Gender Identity Not on file Sexual Orientation Not on file Last Filed Vital Signs Vital Sign Reading Time Taken Comments Blood Pressure 136/78 12/12/2020 2:28 PM CDT Pulse - - Temperature 36.9 C (98.4 F) 12/12/2020 2:28 PM CDT Respiratory Rate 18 12/12/2020 2:28 PM CDT Oxygen Saturation - - Inhaled Oxygen Concentration - - Weight 168 kg (370 lb) 12/12/2020 2:28 PM CDT Height 185.4 cm (6' 1 ) 12/12/2020 2:28 PM CDT Body Mass Index 48.82 12/12/2020 2:28 PM CDT Plan of Treatment Health Maintenance Due Date Last Done Comments Influenza Vaccine (#1) 2023 06/14/2014 Pneumococcal PPSV23/PCV13 65 + Years / Low and Medium Risk Completed 01/12/2020, 01/21/2019 Care Teams Prawn Trawler Hand Relationship Specialty Start Date End Date Alicai Malcolm MD [address] [place] [address] PCP - General Internal Medicine 08/05/18
--- OUTSIDE RECORDS SUMMARY | 2024-05-13 14:47 | XMS_ITS | Encounter Summary ---
Author Organization [facility] Address [address], [place] [address] Phone Care Team Providers Care Drapery Examiner Name Role Phone Alicia Malcolm MD Primary Care Provider Encounter Details Date Type Department Care Team (Late st Contact Info) Description 09/17/2019 Telephone [facility] Nephrology and Hypertension [address] [place] [address] Jacquie Al MA Social History Tobacco Use Types Packs/Day Years [...] on file Sexual Orientation Not on file documented as of this encounter Miscellaneous Notes * Telephone Encounter - Jacquie Al MA - 10/24/2020 10:14 AM CDT old documented in this encounter Plan of Treatment Not on file documented as of this encounter Visit Diagnoses Not on filedocumented in this encounter Care Teams Drapery Examiner Relationship Specialty Start Date End Date Alicia Malcolm MD [address] [place] [address] PCP - General Internal Medicine 08/05/18 documented as of this encounter
--- OUTSIDE RECORDS SUMMARY | 2024-05-13 14:47 | XMS_ITS | Encounter Summary ---
Author Organization [facility] Address [address] [place] [address] Care Team Providers Care Sprayer Hand Name Role Phone Taco Ho MD Primary Care Provider [phone] Encounter Details Date Type Department Care Team (Latest Contact Info) Description 02/04/2018 Abstract [facility] , Milla Gaspar MD Social History Tobacco Use Types Packs/Day Years Used Date Smoking Tobacco: Never Assessed Sex and Gender Information Value Date Recorded Sex Assigned at Not on file Legal Sex Male 7:28 PM CDT Gender Identity Not on file Sexual Orientation Not on file documented as of this encounter Plan of Treatment Not on file documented as of this encounter Visit Diagnoses Not on filedocumented in this encounter Care Teams Sprayer Hand Relationship Specialty Start Date End Date Taco Ho MD [address] [place] [address] PCP - General 10/24/12 documented as of this encounter
--- OUTSIDE RECORDS SUMMARY | 2024-05-13 14:47 | XMS_ITS | Patient Health Summary ---
Author Organization [facility] Address [address] [place] [address] Care Team Providers Care Personal Banker Name Role Phone Taco Ho MD Primary Care Provider [phone] Note from [facility],non-owned Affiliates and Associated Physician Practices is amultiple site organization consisting of ambulatory clinics and hospital sitesin [place], [place], [place] and [place]. This disclosure is being madepursuant to the Care Everywhere program and may not contain all information available regarding this patient. Last updated 17.[facility] Allergies * Codeine(Nausea and/or Vomiting) * Hydrocodone(Unknown) * Penicillins(Swelling) * Sulfa Drugs(Nausea and/or Vomiting) * Tramadol(Unknown) Medications * Be aware that medications may not be up to date on this document. Alwaysverify current medications with the patient. * acetaZOLAMIDE (DIAMOX) 250 MG tablet(Started 07/24/2021) Take 500 mg by mouth 2 times daily * ELIQUIS 5 MG tablet(Started 07/24/2021) Take 5 mg by mouth every 12 hours * bumetanide (BUMEX) 2 MG tablet(Started 07/24/2021) TAKE 1 TABLET BY MOUTH 2 TIMES A DAY. * fluticasone propionate (FLONASE) 50 MCG/ACT nasal spray [place] 1 spray into the nose once daily * metoprolol tartrate (LOPRESSOR) 50 MG tablet(Started 07/24/2021) Take 50 mg by mouth every 12 hours * minoxidil (LONITEN) 2.5 MG tablet(Started 07/24/2021) Take 5 mg by mouth once daily * nitroGLYCERIN (NITROSTAT) 0.4 MG tablet(Started 07/24/2021) TAKE 1 TABLET SUBLINGUAL EVERY 5 MINUITES NEEDED FOR CHEST PAIN * predniSONE (DELTASONE) 10 MG tablet(Started 07/29/2020) PLEASE SEE ATTACHED FOR DETAILED DIRECTIONS * tamsulosin (FLOMAX) 0.4 MG capsule(Started 07/24/2021) Take 0.4 mg by mouth every morning * aspirin (ASPIRIN) 81 MG chew tablet(Started 08/11/2021) Take 1 (one) tablet by mouth once daily * acetaminophen (TYLENOL) 325 MG tablet(Started 08/11/2021) Take 2 (two) tablets by mouth every 8 hours Maximum allowable Acetaminophen amount = 4 Grams (4000 mg) / 24 hours. * gabapentin (NEURONTIN) 300 MG capsule(Started 08/11/2021) Take 1 (one) capsule by mouth 3 times daily * lidocaine (LIDODERM) 5 % patch(Started 08/11/2021) Apply 1 (one) patch to skin every 24 hours * polyethylene glycol 3350 (MIRALAX) 17 g packet(Started 08/11/2021) Take 17 (seventeen) g by mouth once daily as needed for Constipation * senna (SENOKOT) 8.6 MG tablet(Started 08/11/2021) Take 1 (one) tablet by mouth once daily as needed for Constipation * levothyroxine (SYNTHROID) 200 MCG tablet(Started 08/11/2021) Take 1 (one) tablet by mouth once daily * alendronate (FOSAMAX) 10 MG tablet(Started 08/11/2021) Take 7 (seven) tablets by mouth every 7 days * furosemide (LASIX) 40 MG tablet(Started 08/11/2021) Take 1 (one) tablet by mouth once daily * benzonatate (TESSALON) 100 MG capsule(Started 08/11/2021) Take 1 (one) capsule by mouth 3 times daily * guaiFENesin ER 12hr (MUCINEX) 600 MG tablet(Started 08/11/2021) Take 1 (one) tablet by mouth every 12 hours * lidocaine viscous (XYLOCAINE) 2 % solution(Started 08/11/2021) 5 mL by Mouth/Throat route once daily as needed for Sore Throat (Throat irritation/cough) * oxyCODONE-acetaminophen (Percocet) 2.5-325 MG tablet Take 1 tablet by mouth every 8 hours as needed for Pain Active Problems Problem Noted Date Diagnosed Date [...] money to buy more. Never true 08/01/19 Within the past 12 months, t he [...] Mass Index 43.54 12/12/2021 1:49 PM CDT Medical Devices Implanted Type Area Risk Officer Device Identifier Shelf Expiration Date Model / Serial / Lot Biomet Polyax Proximal Tibial/Distal Femoral Locking Plating System 5.5mm Ft Polyu Locking Screws Implanted:Qty: 2 on 08/02/2021 by Anibal Pressley DO at [facility] Right: Femur [id number] / / Biomet Polyax Proximal Tibial/Distal Femoral Locking Plating System 8.0mm Cannulated Locking Screw Implanted:Qty: 1 on 08/02/2021 by Anibal Pressley DO at [facility] Right: Fem[employer] [id number] / / Biomet Polyax Proximal Tibial/Distal Femoral Locking Plating System 4.5mm Solid Cortical Bone Screw, Ft Implanted:Qty: 2 on 08/02/2021 by Anibal Pressley DO at [facility] Right: Femur [id number] / / Biomet Polyax Proximal Tibial/Distal Femoral Locking Plating System 5.5mm Ft Polyu Locking Screws Implanted:Qty: 1 on 08/02/2021 by Anibal Pressley DO at [facility] Right: Femur [id number] / / Biomet Polyax Proximal Tibial/Distal Femoral Locking Plating System 5.5mm Ft Polyu Locking Screws Implanted:Qty: 1 on 08/02/2021 by Anibal Pressley DO at [facility] Right: Femur [id number] / / Wire K 1.6mm 6in Hlf Bynt Pnt Ss Fx Implanted:Qty: 2 on 08/02/2021 by Anibal Pressley DO at [facility] [employer] [id number] / / Screw 3.5mm 5mm 60mm Ft Rvrs Cut Flut Implanted:Qty: 1 on 08/02/2021 by Anibal Pressley DO at [facility] Right: Femur [employer] [id number] / / Screw 3.5mm 5mm 80mm Ft Rvrs Cut Flut Implanted:Qty: 1 on 08/02/2021 by Anibal Pressley DO at [facility] Right: Femur [employer] [id number] / / Plate 9 Hl Lck Precontr Fem Rt Dist Implanted:Qty: 1 on 08/02/2021 by Anibal Pressley DO at [facility] Right: Femur [employer] [id number] / / Screw 3.5mm 5mm 85mm Ft Rvrs Cut Flut Implanted:Qty: 1 on 08/02/2021 by Anibal Pressley DO at [facility] Right: Femur [employer] [id number] / / Screw 3.5mm 5mm 90mm Ft Rvrs Cut Flut Implanted:Qty: 1 on 08/02/2021 by Anibal Pressley DO at [facility] Right: Femur [employer] [id number] / / Biomet Polyax Proximal Tibiasl/Distal Femoral Lociking Plating System 5.5 Mm Ft Poly Locking Screw Implanted:Qty: 2 on 08/02/2021 by Anibal Pressley DO at [facility] Right: Femur [employer] [id number] / / Biomet Polyax Proximal Tibial/Diatal Femoral Locking Plating System 4.5mm Solid Cortical Bone Screw, Ft Implanted:Qty: 1 on 08/02/2021 by Anibal Pressley DO at [facility] Right: Femur [employer] [id number] / / Explanted Type Area Risk Officer Device Identifier Shelf Expiration Date Model / Serial / Lot Wire K 2mm 228mm [facility]s [facility] Plate Explanted:Qty: 2 on 08/02/[address] [facility] Right: Femur [employer] 01/13/2031 [id number] / / [id number] Biomet Polyax Proximal Tibial/Distal Femoral Locking Plating System 5.5mm Ft Polyu Locking Screws Explanted:Qty: 2 on 08/02/2021 by Anibal Pressley DO at [facility] Right: Femur [id number] / / Biomet Polyax Proximal Tibial/Distal Femoral Locking Plating System 5.5mm Ft Polyu Locking Screws Explanted:Qty: 2 on 08/02/2021 by Anibal Pressley DO at [facility] Right: Femur [id number] / / Gd Pin Orth 3.2mm Polyax Fem Clbrt Lck Explanted:Qty: 1 on 08/02/[address] [facility] [employer] [id number] / / Wshr Orth Ss 3.5-4 Mm Cecilia Screw Nonster Explanted:Qty: 3 on 08/02/[address] [facility] [employer] [id number] / / Screw 3.5mm 5mm 85mm Ft Rvrs Cut Flut Explanted:Qty: 1 on 08/02/2021 by Anibal Pressley DO at [facility] Right: Femur [employer] [id number] / / Procedures * XR KNEE RIGHT 3VW(Performed 12/12/2021) Performed for Closed fracture of distal end of right femur with routine healing, unspecified fracture morphology, subsequent encounter * XR KNEE RIGHT 3VW(Performed 10/31/2021) Performed for Closed fracture of distal end of right femur with routine healing, unspecified fracture morphology, subsequent encounter * XR FEMUR RIGHT 2VW(Performed 09/19/2021) Performed for Closed fracture of distal end of right femur, unspecified fracture morphology, initial encounter ([facility]) * CARDIAC EKG ORDER(Performed 08/17/2021) * PHOSPHORUS BLOOD(Performed 08/11/2021) * MAGNESIUM BLOOD(Performed 08/11/2021) * COMPREHENSIVE METABOLIC PANEL(Performed 08/11/2021) * CBC W/O DIFFERENTIAL(Performed 08/11/2021) * PHOSPHORUS BLOOD(Performed 08/10/2021) * MAGNESIUM BLOOD(Performed 08/10/2021) * COMPREHENSIVE METABOLIC PANEL(Performed 08/10/2021) * CBC W/O DIFFERENTIAL(Performed 08/10/2021) * XR FEMUR RIGHT 2VW(Performed 08/09/2021) Performed for Fall, initial encounter * XR CHEST 1VW PORTABLE(Performed 08/09/2021) Performed for Fall, initial encounter * PHOSPHORUS BLOOD(Performed 08/09/2021) * MAGNESIUM BLOOD(Performed 08/09/2021) * COMPREHENSIVE METABOLIC PANEL(Performed 08/09/2021) * CBC W/O DIFFERENTIAL(Performed 08/09/2021) * SARS-COV-2 (COVID-19) RAPID(Performed 08/08/2021) * PHOSPHORUS BLOOD(Performed 08/08/2021) * MAGNESIUM BLOOD(Performed 08/08/2021) * COMPREHENSIVE METABOLIC PANEL(Performed 08/08/2021) * CBC W/O DIFFERENTIAL(Performed 08/08/2021) * VITAMIN D 25-HYDROXY(Performed 08/07/2021) * PHOSPHORUS BLOOD(Performed 08/07/2021) * MAGNESIUM BLOOD(Performed 08/07/2021) * COMPREHENSIVE METABOLIC PANEL(Performed 08/07/2021) * CBC W/O DIFFERENTIAL(Performed 08/07/2021) * PHOSPHORUS BLOOD(Performed 08/06/2021) * MAGNESIUM BLOOD(Performed 08/06/2021) * COMPREHENSIVE METABOLIC PANEL(Performed 08/06/2021) * CBC W/O DIFFERENTIAL(Performed 08/06/2021) * PHOSPHORUS BLOOD(Performed 08/05/2021) * MAGNESIUM BLOOD(Performed 08/05/2021) * COMPREHENSIVE METABOLIC PANEL(Performed 08/05/2021) * CBC W/O DIFFERENTIAL(Performed 08/05/2021) * PREPARE RBC LEUKOREDUCED UNIT(Performed 08/05/2021) * CBC W/O DIFFERENTIAL(Performed 08/04/2021) * PHOSPHORUS BLOOD(Performed 08/04/2021) * MAGNESIUM BLOOD(Performed 08/04/2021) * COMPREHENSIVE METABOLIC PANEL(Performed 08/04/2021) * CYTOPLASMIC PATTERN(Performed 08/03/2021) * HARRIETT BLOOD SINGLE PATTERN(Performed 08/03/2021) * HARRIETT HEP-2 IGG BY IFA(Performed 08/03/2021) * IRON + TRANSFERRIN PANEL(Performed 08/03/2021) * SLA AUTOANTIBODY(Performed 08/03/2021) * LIVER KIDNEY MICROSOME - 1 ANTIBODY IGG(Performed 08/03/2021) * HARRIETT BLOOD SCREEN W/REFLEX TITER(Performed 08/03/2021) * DVIVW-2-HJQKSPRTERX BLOOD(Performed 08/03/2021) * PHOSPHORUS BLOOD(Performed 08/03/2021) * MAGNESIUM BLOOD(Performed 08/03/2021) * COMPREHENSIVE METABOLIC PANEL(Performed 08/03/2021) * CBC W/O DIFFERENTIAL(Performed 08/03/2021) * FL KAMLESH SURGERY(Performed 08/02/2021) Performed for Closed fracture of distal end of right femur, unspecified fracture morphology, initial encounter ([facility]) * XR KNEE RIGHT 2VW OR LESS(Performed 08/02/2021) Performed for Closed fracture of distal end of right femur, unspecified fracture morphology, initial encounter (HCC) * OPEN REDUCTION INTERNAL FIXATION (ORIF) FEMUR(Performed 08/02/2021) Performed for Closed Salter-Veronica type III physeal fracture of right distal femur (HCC) * ENDOTRACHEAL TUBE NOTE(Performed 08/02/2021) * ECHO LIMITED OR FOLLOWUP(Performed 08/02/2021) Performed for Heart failure, unspecified HF chronicity, unspecified heart failure type (HCC) * XR CHEST 1VW PORTABLE(Performed 08/02/2021) Performed for Fall, initial encounter * HEPATITIS B PANEL(Performed 08/02/2021) * HEMOGLOBIN A1C(Performed 08/02/2021) * PT-INR SLH(Performed 08/02/2021) * PHOSPHORUS BLOOD(Performed 08/02/2021) * MAGNESIUM BLOOD(Performed 08/02/2021) * COMPREHENSIVE METABOLIC PANEL(Performed 08/02/2021) * CBC W/O DIFFERENTIAL(Performed 08/02/2021) * TYPE + SCREEN PANEL(Performed 08/01/2021) * VAS BILATERAL VENOUS DUPLEX LE(Performed 08/01/2021) Performed for Heart failure, unspecified HF chronicity, unspecified heart failure type (HCC) * PHOSPHORUS BLOOD(Performed 08/01/2021) * MAGNESIUM BLOOD(Performed 08/01/2021) * COMPREHENSIVE METABOLIC PANEL(Performed 08/01/2021) * CBC W/O DIFFERENTIAL(Performed 08/01/2021) * XR CHEST 1VW PORTABLE(Performed 07/31/2021) Performed for Fall, initial encounter * ECHO COMPLETE(Performed 07/31/2021) Performed for Heart failure, unspecified HF chronicity, unspecified heart failure type (HCC) * PHOSPHORUS BLOOD(Performed 07/31/2021) * MAGNESIUM BLOOD(Performed 07/31/2021) * COMPREHENSIVE METABOLIC PANEL(Performed 07/31/2021) * CBC W/O DIFFERENTIAL(Performed 07/31/2021) * TSH REFLEX FREE T4(Performed 07/30/2021) * B-TYPE NATRIURETIC PEPTIDE(Performed 07/30/2021) * PT-INR [facility](Performed 07/30/2021) * PHOSPHORUS BLOOD(Performed 07/30/2021) * MAGNESIUM BLOOD(Performed 07/30/2021) * COMPREHENSIVE METABOLIC PANEL(Performed 07/30/2021) * CBC W/O DIFFERENTIAL(Performed 07/30/2021) * TROPONIN I(Performed 07/29/2021) * PHOSPHORUS BLOOD(Performed 07/29/2021) * MAGNESIUM BLOOD(Performed 07/29/2021) * COMPREHENSIVE METABOLIC PANEL(Performed 07/29/2021) * CBC W/O DIFFERENTIAL(Performed 07/29/2021) * TROPONIN I(Performed 07/29/2021) * PT-INR [facility](Performed 07/29/2021) * LACTIC ACID BLOOD(Performed 07/29/2021) * TSH REFLEX FREE T4(Performed 07/29/2021) * URINALYSIS REFLEX MICROSCOPIC REFLEX CULTURE(Performed 07/29/2021) * CULTURE MRSA(Performed 07/29/2021) * OT EVAL AND TREAT(Performed 07/29/2021) * URINALYSIS REFLEX TO MICROSCOPIC NO CULTURE(Performed 07/28/2021) * BLOOD TYPE VERIFICATION(Performed 07/28/2021) * CT CHEST ABDOMEN PELVIS WO CONT(Performed 07/28/2021) Performed for Fall, initial encounter, Closed fracture of distal end of right femur, unspecified fracture morphology, initial encounter ([facility]), Right leg pain * CT KNEE RIGHT WO CONTRAST(Performed 07/28/2021) Performed for Fall, initial encounter * CT LUMBAR SPINE WO CONTRAST(Performed 07/28/2021) Performed for Fall, initial encounter * CT THORACIC SPINE WO CONTRAST(Performed 07/28/2021) Performed for Fall, initial encounter * CT CERVICAL SPINE WO CONTRAST(Performed 07/28/2021) Performed for Fall, initial encounter * CT FACIAL BONES WO CONTRAST(Performed 07/28/2021) Performed for Fall, initial encounter * CT HEAD WO CONTRAST(Performed 07/28/2021) Performed for Fall, initial encounter * XR FEMUR RIGHT 2VW(Performed 07/28/2021) Performed for Fall, initial encounter * TYPE + SCREEN PANEL(Performed 07/28/2021) * COMPREHENSIVE METABOLIC PANEL(Performed 07/28/2021) * HEPATITIS C AB SCREEN RFLX NAAT QUANT(Performed 07/28/2021) * TROPONIN I(Performed 07/28/2021) * PTT SLH(Performed 07/28/2021) * PT-INR [facility](Performed 07/28/2021) * CBC W AUTO DIFFERENTIAL(Performed 07/28/2021) * EKG 12-LEAD(Performed 07/28/2021) Performed for Fall, initial encounter Results * XR KNEE RIGHT 3VW (12/12/2021 10:59 AM CDT) Only the most recent of2 resultswithin the time period is included. Anatomical Region Laterality Modality Lower Extremity Radiographic Tanika ging 12/12/2021 11:0 1 AM CDT Impressions 12/12/2021 11:03 AM CDT IMPRESSION: Internally fixated distal femoral fracture, unchanged in alignment. Report dictated by Nidia Santamaria MD (radiology nurse). I, Rj Lara MD have personally reviewed and interpreted this examination/study. > Interpreting Provider: Rj Lara MD on 12/12/2021 11:03 AM Narrative 12/12/2021 11:03 AM CDT PROCEDURE: XR KNEE RIGHT 3VW, DATE/TIME OF EXAM: 12/12/2021 10:59 AM, LOCATION [facility] INDICATION: S72.401D: Closed fracture of distal end of right femur with routine healing, unspecified fracture morphology, subsequent encounter ADDITIONAL CLINICAL INFORMATION: Ordering Provider Reason For Exam: fracture COMPARISON: Right knee radiograph dated 10/31/2021. FINDINGS: There is redemonstration of a distal femoral fracture status post internal fixation with a lateral plate and multiple screws. Hardware appears intact. Osseous alignment is unchanged. There is persistent mild joint space narrowing of the medial compartment. There is a small joint effusion. There is soft tissue swelling. Procedure Note Rj Lara MD - 12/12/2021 PROCEDURE: XR KNEE RIGHT 3VW, DATE/TIME OF EXAM: 12/12/2021 10:59 AM, LOCATION [facility] INDICATION: S72.401D: Closed fracture of distal end of right femur with routine healing, unspecified fracture morphology, subsequent encounter ADDITIONAL CLINICAL INFORMATION: Ordering Provider Reason For Exam: fracture COMPARISON: Right knee radiograph dated 10/31/2021. FINDINGS: There is redemonstration of a distal femoral fracture status postinternal fixation with a lateral plate and multiple screws. Hardware appearsintact. Osseous alignment is unchanged. There is persistent mild joint space narrowing of the medial compartment. There is a small joint effusion.There is soft tissue swelling. IMPRESSION: Internally fixated distal femoral fracture, unchanged in alignment. Report dictated by Nidia Santamaria MD (radiology nurse). I, Rj Lara MD have personally reviewed and interpreted this examination/study. > Interpreting Provider: Rj Lara MD on 12/12/2021 11:03 AM Anibal Pressley DO DIAGNOSTIC IMAGING O RDERABLES * XR FEMUR RIGHT 2VW (09/19/2021 12:03 PM CDT) Only the most recent of3 resultswithin the time period is included. Anatomical Region Laterality Modality Lower Extremity Radiographic Tanika ging 09/19/2021 12:0 4 PM CDT Impressions 09/19/2021 12:05 PM CDT IMPRESSION: Distal femoral fracture with internal fixation, unchanged in alignment. This report was electronically signed by RJ LARA MD on 09/19/2021 12:05 PM . Narrative 09/19/2021 12:05 PM CDT Exam: XR FEMUR RIGHT 2VW History: S72.401A: Closed fracture of distal end of right femur, unspecified fracture morphology, initial encounter Comparison: 08/09/2021 Findings: Again demonstrated is internal fixation of a distal femoral fracture with a lateral plate and screws. The hardware is intact and the osseous alignment is unchanged. Vascular calcification is noted. Procedure Note Rj Lara MD - 09/19/2021 Exam: XR FEMUR RIGHT 2VW History: S72.401A: Closed fracture of distal end of right femur, unspecified fracture morphology, initial encounter Comparison: 08/09/2021 Findings: Again demonstrated is internal fixation of a distal femoral fracturewith a lateral plate and screws. The hardware is intact and the osseous alignment is unchanged. Vascular calcification is noted. IMPRESSION: Distal femoral fracture with internal fixation, unchanged in alignment. This report was electronically signed by RJ LARA MD on09/19/2021 12:05 PM . Anibal Pressley DO DIAGNOSTIC IMAGING O RDERABLES * CARDIAC EKG ORDER (08/17/2021 10:20 AM CDT) Narrative 08/17/2021 10:20 AM CDT Ordered by an unspecified provider. Scanned Document CARDIAC SERVICES ORD ERABLES * (ABNORMAL) CBC W/O DIFFERENTIAL (08/11/2021 7:[address] [facility]) Only the most recent of14 resultswithin the time period is included. WBC 8.9 3.5 - 10.5 10 3/uL 08/11/2021 8:38 AM [facility] RBC 3.46(L) 4.30 - 5.70 10 6/uL 08/11/2021 8:38 AM [facility] Hemoglobin 9.1(L) 12.0 - 17.6 g/dL 08/11/2021 8:38 AM [facility] Hematocrit 29.9(L) 35.2 - 51.7 % 08/11/2021 8:38 AM [facility] MCV 86.4 80.7 - 98.3 fL 08/11/2021 8:38 AM [facility] MCH 26.3(L) 26.7 - 34.0 pg 08/11/2021 8:38 AM [facility] MCHC 30.4(L) 30.8 - 35.9 g/dL 08/11/2021 8:38 AM [facility] Platelet Count 606(H) 150 - 400 10 3/uL 08/11/2021 8:38 AM [facility] RDW-SD 47.4 36.0 - 50.0 fL 08/11/2021 8:38 AM [facility] RDW-CV 15.7(H) 11.2 - 14.8 % 08/11/2021 8:38 AM [facility] MPV 10.1 9.4 - 12.9 fL 08/11/2021 8:38 AM [facility] nRBC Absolute 0.00 0 10 3/uL 08/11/2021 8:38 AM [facility] nRBC Auto 0.0 0 /100 WBC 08/11/2021 8:38 AM [facility] Blood BLOOD SPECIMEN / Unknown Lab Venipuncture / Unknown 08/11/2021 7:12 AM CDT 08/11/2021 8:17 AM CDT José Manuel Palmer MD LAB - HEMATOLOGY ORDERABLES [facility] [address] [place] [address], [facility] [phone] * (ABNORMAL) COMPREHENSIVE METABOLIC PANEL (08/11/2021 7:12 AM CDT) Only the most recent of15 resultswithin the time period is included. BUN 23 7 - 26 mg/dL 08/11/2021 8:56 AM [facility] Creatinine 1.33(H) 0.71 - 1.16 mg/dL 08/11/2021 8:56 AM [facility] Sodium 136 136 - 145 mmol/L 08/11/2021 8:56 AM [facility] Potassium 3.9 3.5 - 4.5 mmol/L 08/11/2021 8:56 AM [facility] Chloride 99 98 - 107 mmol/L 08/11/2021 8:56 AM [facility] CO2 25 22 - 29 mmol/L 08/11/2021 8:56 AM [facility] Glucose 90 70 - 115 mg/dL 08/11/2021 8:56 AM [facility] Calcium 9.7 8.4 - 10.2 mg/dL 08/11/2021 8:56 AM [facility] Protein Total 6.8 6.0 - 8.3 g/dL 08/11/2021 8:56 AM [facility] Albumin 3.2(L) 3.4 - 5.0 g/dL 08/11/2021 8:56 AM [facility] Bilirubin Total 0.9 0.2 - 1.2 mg/dL 08/11/2021 8:56 AM [facility] Alkaline Phosphatase 95 40 - 150 U/L 08/11/2021 8:56 AM [facility] ALT <5(L) 5 - 55 U/L 08/11/2021 8:56 AM [facility] AST 15 5 - 34 U/L 08/11/2021 8:56 AM CDT [facility] Anion Gap 16 8 - 18 08/11/2021 8:56 AM [facility] BUN/Creatinine Ratio 17 7 - 23 08/11/2021 8:56 AM [facility] Osmolality Calculated 285 270 - 300 mOsm/kg 08/11/2021 8:56 AM [facility] Albumin/Globulin Ratio 0.9(L) 1.1 - 2.3 08/11/2021 8:56 AM [facility] eGFR by CKD-EPI 57(L) >=90 mL/min/1.7 3 m2 08/11/2021 8:56 AM [facility] Blood BLOOD SPECIMEN / Unknown Lab Venipuncture / Unknown 08/11/2021 7:12 AM CDT 08/11/2021 8:17 AM CDT Jsoé Manuel Palmer MD LAB - CHEMISTRY ORDERABLES Performing Organization Address City/[facility]/ZIP Co de Phone Number [address] [address], [facility] [phone] * PHOSPHORUS BLOOD (08/11/2021 7:12 AM CDT) Only the most recent of14 resultswithin the time period is included. Phosphorus 4.6 2.8 - 5.1 mg/dL 08/11/2021 8:56 AM T [facility] Blood BLOOD SPECIMEN / Unknown Lab Venipuncture / Unknown 08/11/2021 7:12 AM CDT 08/11/2021 8:17 AM CDT José Manuel Palmer MD LAB - CHEMISTRY ORDERABLES [address] [address], [facility] [phone] * MAGNESIUM BLOOD (08/11/2021 7:12 AM CDT) Only the most recent of14 resultswithin the time period is included. Magnesium 2.3 1.6 - 2.6 mg/dL 08/11/2021 8:56 AM CDT [facility] Blood BLOOD SPECIMEN / Unknown Lab Venipuncture / Unknown 08/11/2021 7:12 AM CDT 08/11/2021 8:17 AM CDT José Manuel Surinder Estela DE LEON LAB - CHEMISTRY ORDERABLES [facility] [address] [place] [id number], [facility] [phone] * XR CHEST 1VW PORTABLE (08/09/2021 12:32 PM CDT) Only the most recent of3 resultswithin the time period is included. Anatomical Region Laterality Modality Chest Radiographic Tanika ging 08/09/2021 3:46 PM CDT Impressions 08/09/2021 11:33 PM CDT FINDINGS/IMPRESSION: Prominent right hilar/infrahilar vasculature, unchanged. There is mild bibasilar atelectasis. There is no pleural effusion or pneumothorax. The cardiomediastinal silhouette is normal. Dictated by Eboni Blanca DO (radiology nurse). IDr. RADHA have personally reviewed and interpreted this examination/study. This report was electronically signed by RADHA FRANCO on 08/09/2021 11:33 PM . Narrative 08/09/2021 11:33 PM CDT ORDER DATE: 08/09/2021 12:32 PM EXAMINATION: XR CHEST 1VW PORTABLE HISTORY: W19.XXXA: Fall, initial encounter COMPARISON: Chest radiograph dated 08/02/2021 Procedure Note Radha Franco MD - 08/09/2021 ORDER DATE: 08/09/2021 12:32 PM EXAMINATION: XR CHEST 1VW PORTABLE HISTORY: W19.XXXA: Fall, initial encounter COMPARISON: Chest radiograph dated 08/02/2021 FINDINGS/IMPRESSION: Prominent right hilar/infrahilar vasculature, unchanged. There is mild bibasilar atelectasis. There is no pleural effusion or pneumothorax. The cardiomediastinal silhouette is normal. Dictated by Eboni Blanca DO (radiology nurse). I, Dr. RADHA FRANCO have personally reviewed and interpreted this examination/study. This report was electronically signed by RADHA FRANCO on 08/09/2021 11:33 PM . Maday Brothers MD DIAGNOSTIC IMAGI NG ORDERABLES * (ABNORMAL) SARS-COV-2 (COVID-19) RAPID (08/08/2021 10:48 AM CDT) COVID-19 PCR Detected( A) Not detected 08/08/2021 12:06 PM CDT [facility] Microbiology SPECIMEN FROM NASOPHARYNGEAL STRUCTURE / Unknown Collection / Unknown 08/08/2021 10:48 AM CDT 08/08/2021 10:59 AM CDT Narrative [facility] - 08/08/2021 12:06 PM CDT This nucleic acid amplification assay performance was validated by [facility]. This test has been authorized by the Food and Drug administration (FDA)under an Emergency Use Authorization (EUA). This test has been validated in accordance with the FDA's guidance document Policy for Diagnostic Testing in Laboratories Certified to perform High Complexity Testing under CLIA prior to Emergency Use Authorization for Coronavirus Disease-2019 during the Public Health Emergency issued on May 30, 2019. FDA independent review of this validation is pending. This test is only authorized for the duration of time the declaration that circumstances exist justifying the authorization of emergency use of in vitro diagnostic tests for detection of SARS-CoV-2 virus and/or diagnosis of COVID-19 infection under section 564(b)(1) of the Act, 21 U.S.C 360bbb-3 (b)(1), unless the authorization is terminated or revoked sooner. Fact Sheets for this EUA assay are available upon request. aMday Brothers MD LAB - MICROBIOLO GY ORDERABLES [facility] [address] [place] [address], [facility] [phone] * VITAMIN D 25-HYDROXY (08/07/2021 8:38 AM CDT) Vitamin D, 25 Hydroxy 34.0 30.0 - 80.0 ng/mL 08/07/2021 5:12 PM CDT [facility] Comment: The recommendations for 25-Hydroxy Vitamin D clinical decision points are as follows: Deficient: <20.0 ng/mL Insufficient: 20.0 - 29.9 ng/mL Sufficient: > or =30.0 ng/mL If the 25-Hydroxy Vitamin D results are inconsitent with clinical evidence, it is recommended that follow-up testing using a method such as LC/MS/MS be performed to confirm the result. Reference: The Endocrine Society Clinical Practice Guidelines. 2011 Blood BLOOD SPECIMEN / Unknown Lab Venipuncture / Unknown 08/07/2021 8:38 AM CDT 08/07/2021 9:58 AM CDT Lashawn Prosper Davenport SUPERVISOR PURIFICATION-MENTAL HEALTH TECH LAB - CHEMISTR Y ORDERABLES Performing Organization Address City/State/[facility] Co de Phone Number [address] [address], [facility] [phone] * PREPARE (CROSSMATCH) RBC UNIT(S), 2 Units (08/05/2021 1:17 AM CDT) [facility] Unit Description AS1 LR PRBC [facility] B[facility]OD [facility] LAB Unit ABO A [facility] Unit Rh POS [facility] Product Number R02 [facility] B LOOD BANK LAB Unit Donor # [id number] [facility] Unit Status [facility] Product Code [id number] [facility] BLO OD [facility] LAB Blood Type Barcode 6200 [facility] Expiration Date S BLOOD BANK LAB Unit Description AS1 LR PRBC [facility]OD [facility] Unit ABO A [facility] Unit Rh POS [facility] B[facility]OD [facility] Product Number R02 [facility] B LOOD BANK LAB Unit Donor # [id number] [facility] Unit [facility] Product [facility] [id number] [facility] BLO OD [facility] LAB Blood Type Barcode 6200 [facility] Expiration Date [facility] B[facility]OD [facility] LAB Blood Bank BLOOD SPECIMEN / Unknown 08/01/2021 11:14 PM CDT Maday Brothers MD LAB - BLOOD BANK ORDERABLES [facility] B[facility]OD [facility] [address] [place] [address], [facility] [phone] * (ABNORMAL) CYTOPLASMIC PATTERN (08/03/2021 5:48 AM CDT) Cytoplasmic Pattern Titer 1:160(A) 08/07/2021 4:10 PM CDT [facility] ([facility]) Cytoplasmic Pattern AMA(A) 08/07/2021 4:10 PM CDT [facility] ([facility]) Comment: Performed By: [facility] [address] [place] [address] Director Advanced: Sue Vergara MD Blood BLOOD SPECIMEN / Unknown Lab Venipuncture / Unknown 08/03/2021 5:48 AM CDT 08/03/2021 6:39 AM CDT Maday Brothers MD LAB - CHEMISTRY ORDERABLES Performing Organization Address [facility] de Phone Number [facility] ([facility]) [address] [place] [address] * (ABNORMAL) HARRIETT BLOOD SINGLE PATTERN (08/03/2021 5:48 AM CDT) HARRIETT Pattern Homogeneo us(A) 08/07/2021 4:09 PM CDT [facility] ([facility]) HARRIETT Titer 1:320(A) 08/07/2021 4:09 PM CDT [facility] ([facility]) Comment: Performed By: [facility] [address] [place] [address] Director Advanced: Sue Vergara MD Blood BLOOD SPECIMEN / Unknown Lab Venipuncture / Unknown 08/03/2021 5:48 AM CDT 08/03/2021 6:39 AM CDT Maday Brothers MD LAB - CHEMISTRY ORDERABLES [facility] ([facility]) [address] [place] [address], [facility] * (ABNORMAL) HARRIETT HEP-2 IGG BY IFA (08/03/2021 5:48 AM CDT) HARRIETT HEp-2 IgG Detected (H) <1:80 08/07/2021 4:09 PM CDT [facility] ([facility]) HARRIETT Interpretive Comment See Note 08/07/2021 4:09 PM CDT [facility] ([facility]) Comment: Homogeneous Pattern Clinical associations: SLE, drug-induced SLE or PINEDA. Main autoantibodies: Anti-dsDNA, anti-histones or anti-chromatin (anti-nucleosome) Cytoplasmic reticular/AMA pattern Clinical Associations: PBC, SSc, PBC-SSc overlap syndrome, and PBC-SjS overlap syndrome Main autoantibodies: Anti-mitochondrial antibody List of Abbreviations Antisynthetase syndrome (ARS), chronic active hepatitis (CAH), inflammatory myopathies (IM) [dermatomyositis (DM), polymyositis (PM), necrotizing autoimmune myopathy (NAM)], interstitial lung disease (ILD), juvenile idiopathic arthritis (PINEDA), mixed connective tissue disease (MCTD), primary biliary cholangitis (PBC), rheumatoid arthritis (RA), systemic autoimmune rheumatic diseases (SARD), Sjogren syndrome (SjS), systemic lupus erythematosus (SLE), systemic sclerosis (SSc), undifferentiated connective tissue disease (UCTD). INTERPRETIVE INFORMATION: HARRIETT Interpretive Comment Presence of antinuclear antibodies (HARRIETT) is a hallmark feature of systemic autoimmune rheumatic diseases (SARD). However, HARRIETT lacks diagnostic specificity and is associated with a variety of diseases (cancers, autoimmune, infectious, and inflammatory conditions) and may also occur in healthy individuals in varying prevalence. The lack of diagnostic specificity requires confirmation of positive HARRIETT by more specific serologic tests. HARRIETT (nuclear reactivity) positive patterns reported include centromere, homogeneous, nuclear dots, nucleolar, or speckled. HARRIETT (cytoplasmic reactivity) positive patterns reported include reticular/AMA, discrete/GW body-like, polar/golgi-like, cytoplasmic speckled or rods and rings. All positive patterns are reported to endpoint titers (1:2560). Reported patterns may help guide differential diagnosis, although they may not be specific for individual antibodies or diseases. Mitotic staining patterns not reported. Negative results do not necessarily rule out SARD. Performed By: [facility] [address] [place] [address] Director Advanced: Sue Vergara MD Blood BLOOD SPECIMEN / Unknown Lab Venipuncture / Unknown 08/03/2021 5:48 AM CDT 08/03/2021 6:39 AM CDT Maday Brothers MD LAB - SEROLOGY O RDERABLES Performing Organization Address [facility] Co de Phone Number [facility]) [address] [place] [address] * LIVER KIDNEY MICROSOME - 1 ANTIBODY IGG (08/03/2021 5:48 AM CDT) Liver-Kidney Microsomal Antibody 1.3 0.0 - 24.9 U 08/07/2021 12:24 PM CDT [facility] ([facility]) Comment: REFERENCE INTERVAL: Liver-Kidney Microsome-1 Antibody, IgG by AFTAB 0.0 - 20.0 U .............. Negative 20.1 - 24.9 U ............. Equivocal 25.0 U or Greater ......... Positive A positive result indicates the presence of IgG antibodies to recombinant human P450 2D6 and suggests the possibility of autoimmune hepatitis, type 2. A negative LKM-1 does not rule out the presence of autoimmune hepatitis, type 2. Performed By: [facility] [address] [place] [address] Director Advanced: Sue Vergara MD Blood BLOOD SPECIMEN / Unknown Lab Venipuncture / Unknown 08/03/2021 5:48 AM CDT 08/03/2021 6:39 AM CDT Maday Brothers MD LAB - SEROLOGY O RDERABLES Performing Organization Address [facility] Co de Phone Number [facility]) [address] [place] [address] * SOLUBLE LIVER ANTIGEN (SLA) ANTIBODY (08/03/2021 5:48 AM CDT) Soluable Liver Antigen Antibody IgG 1.3 0.0 - 24.9 U 08/07/2021 12:25 PM CDT [facility] [employer] ([facility]) Comment: REFERENCE INTERVAL: Soluble Liver Antigen Antibody, IgG 0.0 - 20.0 U ........... Negative 20.1 - 24.9 U ........... Equivocal 25.0 U or greater ....... Positive The presence of SLA antibodies has almost 100% specificity for autoimmune hepatitis, although only 12-30% have these antibodies. Thus, a negative SLA IgG test does not rule out autoimmune hepatitis. Performed By: [facility] [address] [place] [address] Director Advanced: Sue Vergara MD Blood BLOOD SPECIMEN / Unknown Lab Venipuncture / Unknown 08/03/2021 5:48 AM CDT 08/03/2021 6:39 AM CDT Maday Brothers MD LAB - SEROLOGY O RDERABLES [facility]) [address] [place] [address], [facility] * (ABNORMAL) HARRIETT BLOOD SCREEN W/REFLEX TITER (08/03/2021 5:48 AM CDT) HARRIETT IgG Detected (A) None Detected 08/05/2021 4:44 AM CDT [facility] ([facility]) Comment: Antibodies to Anti-Nuclear Antibodies (HARRIETT) detected. Additional testing to follow. INTERPRETIVE INFORMATION: Anti-Nuclear Antibodies (HARRIETT), IgG by AFTAB Antinuclear Antibodies (HARRIETT), IgG by AFTAB: HARRIETT specimens are screened using enzyme-linked immunosorbent assay (AFTAB) methodology. All AFTAB results reported as Detected are further tested by indirect fluorescent assay (IFA) using HEp-2 substrate with an IgG-specific conjugate. The HARRIETT AFTAB screen is designed to detect antibodies against dsDNA, histones, SS-A (Ro), SS-B (La), Coon, Coon/GEAR LAPPING MACHINE OPERATOR, Scl-70, Alyx-1, centromeric proteins, other antigens extracted from the HEp-2 cell nucleus. HARRIETT AFTAB assays have been reported to have lower sensitivities than HARRIETT IFA for systemic autoimmune rheumatic diseases (SARD). Negative results do not necessarily rule out SARD. Performed By: [facility] [address] [place] [address] Director Advanced: Sue Vergara MD Blood BLOOD SPECIMEN / Unknown Lab Venipuncture / Unknown 08/03/2021 5:48 AM CDT 08/03/2021 6:39 AM CDT Maday Brothers MD LAB - CHEMISTRY ORDERABLES Performing Organization Address City/[facility]/ZIP Co de Phone Number [facility] [employer] ([facility]) [address] [place], [place] [address] * (ABNORMAL) ZTHFF-1-UAWQQTRJGUS BLOOD (08/03/2021 5:48 AM CDT) Pldwl-0-Hpouxv ypsin 258(H) 90 - 200 mg/dL 08/03/2021 10:16 AM CDT [facility] Blood BLOOD SPECIMEN / Unknown Lab Venipuncture / Unknown 08/03/2021 5:48 AM CDT 08/03/2021 6:39 AM CDT Maday Brothesr MD LAB - CHEMISTRY ORDERABLES [address] [address], [facility] [phone] * (ABNORMAL) IRON + TRANSFERRIN PANEL (08/03/2021 5:48 AM CDT) Iron 12(L) 50 - 175 ug/dL 08/03/2021 7:27 AM CDT [facility] Transferrin 210 174 - 382 mg/dL 08/03/2021 7:27 AM CDT [facility] Transferrin Saturation % 5(L) 16 - 50 % 08/03/2021 7:27 AM CDT [facility] TIBC Calculated 263 240 - 450 ug/dL 08/03/2021 7:27 AM CDT [facility] Blood BLOOD SPECIMEN / Unknown Lab Venipuncture / Unknown 08/03/2021 5:48 AM CDT 08/03/2021 6:39 AM CDT Maday Brothers MD LAB - CHEMISTRY ORDERABLES [facility] [address] [place] [address], [facility] [phone] * FL KAMLESH SURGERY (08/02/2021 8:49 PM CDT) Narrative [facility] RADIOLOGY - 08/02/2021 8:50 PM CDT Fluoroscopy was used for this exam in the OR. Please see the Operative report. Anibal Pressley DO FLUOROSCOPY ORDERABL ES Performing Organization Address [facility]/ZIP Co de Phone Number [facility] RADIOLOGY * XR KNEE RIGHT 2VW OR LESS (08/02/2021 8:48 PM CDT) Anatomical Region Laterality Modality Lower Extremity Radiographic Tanika ging 08/03/2021 9:10 AM CDT Impressions 08/03/2021 4:35 PM CDT IMPRESSION: Improved osseous alignment status post reduction and internal fixation of a comminuted distal femoral fracture. Report dictated by Denny Marcos DO (radiology nurse). I, Dr. JEANE WISE M.D. have personally reviewed and interpreted this examination/study. This report was electronically signed by JEANE WISE M.D. on 08/03/2021 4:35 PM . Narrative 08/03/2021 4:35 PM CDT EXAMINATION: XR KNEE RIGHT 2VW OR LESS HISTORY: S72.401A: Closed fracture of distal end of right femur, unspecified fracture morphology, initial encounter COMPARISON: CT of the right knee dated 07/28/2021 FINDINGS: Interval internal fixation of a comminuted moderately displaced intra-articular fracture of the right femur with lateral plate and screws as well as multiple interfragmentary screws. Improved alignment of the osseous structures. A small knee joint effusion is noted. Surgical drains are present. Arterial atherosclerosis. Procedure Note Jeane Wise MD - 08/03/2021 EXAMINATION: XR KNEE RIGHT 2VW OR LESS HISTORY: S72.401A: Closed fracture of distal end of right femur, unspecified fracture morphology, initial encounter COMPARISON: CT of the right knee dated 07/28/2021 FINDINGS: Interval internal fixation of a comminuted moderately displaced intra-articular fracture of the right femur with lateral plate andscrews as well as multiple interfragmentary screws. Improved alignment of the osseous structures. A small knee joint effusion is noted. Surgicaldrains are present. Arterial atherosclerosis. IMPRESSION: Improved osseous alignment status post reduction and internal fixationof a comminuted distal femoral fracture. Report dictated by Denny Marcos DO (radiology nurse). I, Dr. JEANE WISE M.D. have personally reviewed and interpreted this examination/study. This report was electronically signed by JEANE WISE M.D. on 08/03/2021 4:35 PM . Anibal Pressley DO DIAGNOSTIC IMAGING O RDERABLES * ETT LINE PERFORMABLE (08/02/2021 4:22 PM CDT) Narrative Georgiana Casas Anes Asst - 08/02/2021 4:22 PM CDT Georgiana Casas Anes Asst 08/02/2021 4:23 PM Endotracheal Tube Placement: Patient Location: OR. Intubation Event Date/Time: 08/02/2021 3:56 PM Procedure: intubation (40244). Procedure Section: Induction: standard IV Patient Position: sniffing Blade Type: Shah Blade Size: 2 Laryngoscopy View: grade 1 (full cords) Intubation Adjuncts: stylet Tube: endotracheal tube Placement: oral Tube type: cuff - inflated Tube Size (FR): 8 Depth of Insertion (CM): 23 Measured From: teeth Cuff Inflated With: air Number of Attempts: 1. Placement Verified By: direct visualization, bilateral breath sounds, CO2 detector and CO2 monitor CXR Findings: ETT in proper place. Tube secured with: adhesive tape. Dentition unchanged? Yes Difficult Airway? No. Procedure Start Time: 08/02/2021 3:56 PM. Staff Section Anesthesia Provider: Georgiana Casas Anes Asst, Performed the procedure Jefferson Feliz DO GENERAL ANESTHESIA ORDERABLES * ECHO LIMITED OR FOLLOWUP (08/02/2021 11:54 AM CDT) Anatomical Region Laterality Modality Chest Echo 08/02/2021 10:3 4 AM CDT Narrative Procedure Note Celina Goldsmith MD - 08/02/2021 Maday Brothers MD ECHOCARDIOGRAPHY RADIANT * (ABNORMAL) PT-INR [facility] (08/02/2021 6:10 AM CDT) Only the most recent of4 resultswithin the time period is included. PT 16.6(H) 12.1 - 14.8 Seconds 08/02/2021 6:50 AM CDT [facility] INR 1.4 See Comment 08/02/2021 6:50 AM CDT [facility] Comment:The suggested therap eutic range for standard coumadin (warfarin) therapy is an INR of 2.0-3.0. For high-risk patients (Mechanical Mitral Valve Prosthesis, etc.), the suggested prophylactic therapeutic range is an INR of 2.5-3.5. Blood BLOOD SPECIMEN / Unknown Lab Venipuncture / Unknown 08/02/2021 6:10 AM CDT 08/02/2021 6:29 AM CDT Maday Brothers MD LAB - COAGULATIO N ORDERABLES [facility] [address] [place] [address], [facility] [phone] * HEMOGLOBIN A1C (08/02/2021 6:10 AM CDT) Hemoglobin A1c 5.4 <=5.6 % 08/02/2021 10:54 AM CDT [facility] Estimated Average Glucose 108 mg/dL 08/02/2021 10:54 AM CDT [facility] Comment: HbA1c Interpretation: Normal : < 5.7% Pre-diabetes: 5.7-6.4% Diabetes: Equal to or greater than 6.5% Test results diagnostic of diabetes should be repeated for confirmation. Treatment target values recommended by ADA and other clinical organizations should be used to evaluate metabolic control in patients. Reference: [place] [employer], Standards of Care in Diabetes -2020 In patients 70 years and older consider HbA1c target range of 7.0-7.5% (Reference: Tonny Cheng et al. JAMDA. 2012) The Sebia assay for the measurement of HbA1c is a National Glycohemoglobin Standardization Program (NGSP) certified method. Blood BLOOD SPECIMEN / Unknown Lab Venipuncture / Unknown 08/02/2021 6:10 AM CDT 08/02/2021 6:34 AM CDT Maday Brothers MD LAB - CHEMISTRY ORDERABLES Performing Organization Address City/[facility]/ZIP Co de Phone Number [address] [address], [facility] [phone] * HEPATITIS B PANEL (08/02/2021 6:10 AM CDT) [facility] Hepatitis B Virus Surface Antibody Non-reacti ve Non-react oma 08/02/2021 7:50 AM CDT [facility] Comment: < 8 mIU/mL Hepatitis B surface Antibody (HBsAb). Nonreactive for HBsAb - individual is considered not immune to Hepatitis B Virus infection. Hepatitis B Virus Surface Antigen Non-reacti ve Non-react oma 08/02/2021 7:50 AM CDT [facility] Hepatitis B Core Virus Antibody IgM Non-reacti ve Non-react oma 08/02/2021 7:50 AM CDT [facility] Blood BLOOD SPECIMEN / Unknown Lab Venipuncture / Unknown 08/02/2021 6:10 AM CDT 08/02/2021 6:29 AM CDT Maday Brothers MD LAB - CHEMISTRY ORDERABLES Performing Organization Address [facility]/ZIP Co de Phone Number [address] [address], [place] [phone] * TYPE + SCREEN PANEL (08/01/2021 11:04 PM CDT) Only the most recent of2 resultswithin the time period is included. Antibody Screen NEG 12:12 AM CDT [facility] BLOOD BANK LAB ABO Rh A POS 08/02/2021 12:12 AM CDT [facility] B[facility]OD [facility] LAB Blood Bank BLOOD SPECIMEN / Unknown Lab Venipuncture / Unknown 08/01/2021 11:04 PM CDT 08/01/2021 11:14 PM CDT Maday Brothers MD LAB - BLOOD BANK ORDERABLES [facility] B[facility]OD [facility] LAB [address] [place] [address], [facility] [phone] * VAS BILATERAL VENOUS DUPLEX LE (08/01/2021 10:04 AM CDT) Anatomical Region Laterality Modality Lower Extremity Intravascular Ul trasound 08/01/2021 9:44 AM CDT Narrative Procedure Note Anirudh Owens MD - 08/03/2021 Billy Willams MD VASCULAR LAB ORDERAB LES * ECHO COMPLETE (07/31/2021 12:27 PM CDT) Anatomical Region Laterality Modality Chest Echo 07/31/2021 11:5 7 AM CDT Narrative Procedure Note Rafaela Patterson MD - 07/31/2021 Billy Willams MD ECHOCARDIOGRAPHY RAD IANT * TSH REFLEX FREE T4 (07/30/2021 5:50 AM CDT) Only the most recent of2 resultswithin the time period is included. TSH 0.920 0.350 - 4.940 uIU/mL 07/30/2021 6:47 AM CDT [facility] Blood BLOOD SPECIMEN / Unknown Lab Venipuncture / Unknown 07/30/2021 5:50 AM CDT 07/30/2021 5:59 AM CDT Elke Shah SUPERVISOR PURIFICATION-HIGH [employer]CHO[employer] ENGLISH TE[employer]ER LAB - CHEMISTRY O RDERABLES Performing Organization Address [facility] Co de Phone Number [facility] [address] [place] [address], [facility] [phone] * (ABNORMAL) B-TYPE NATRIURETIC PEPTIDE (07/30/2021 5:50 AM CDT) BNP 479(H) <100 pg/mL 07/30/2021 6:37 AM CDT [facility] Comment: A decision threshold of 100 pg/mL has been demonstrated to provide the maximal combination of sensitivity, specificity and predictive value for the diagnosis of congestive heart failure (CHF). Virtually all patients with no evidence of CHF have BNP values less than 100 pg/mL. A BNP value greater than 100 pg/mL is consistent with the diagnosis of CHF in the appropriate clinical setting. In a study of 693 patients (male and female) with diagnosed CHF, the following values were determined based on the NYHA functional classification system: NYHA Functional Class Mean Valule (pg/mL) % >100 pg/mL I 320 58.1 II 432 73.0 III 656 79.0 IV 1635 98.3 Blood BLOOD SPECIMEN / Unknown Lab Venipuncture / Unknown 07/30/2021 5:50 AM CDT 07/30/2021 5:59 AM CDT Elke Shah [facility] LAB - CHEMISTRY O RDERABLES Performing Organization Address [facility] Co de Phone Number [facility] [address] [place] [address], [facility] [phone] * (ABNORMAL) TROPONIN I (07/29/2021 3:00 PM CDT) Only the most recent of3 resultswithin the time period is included. Troponin I 0.053(H) <0.032 ng/mL 07/29/2021 3:37 PM CDT [facility] Blood BLOOD SPECIMEN / Unknown Lab Venipuncture / Unknown 07/29/2021 3:00 PM CDT 07/29/2021 3:07 PM CDT José Manuel Palmer MD LAB - CHEMISTRY ORDERABLES [facility] [address] [place] [address], [facility] [phone] * LACTIC ACID BLOOD (07/29/2021 6:08 AM CDT) Lactic Acid-Stat 0.9 <=2.0 mmol/L 07/29/2021 6:38 AM T [facility] Blood BLOOD SPECIMEN / Unknown Lab Venipuncture / Unknown 07/29/2021 6:08 AM CDT 07/29/2021 6:17 AM CDT José Manuel Palmer MD LAB - CHEMISTRY ORDERABLES Performing Organization Address [facility]/ZIP Co de Phone Number [facility] [address] [place] [address], [facility] [phone] * (ABNORMAL) URINALYSIS REFLEX MICROSCOPIC REFLEX CULTURE (07/29/2021 5:56 AM CDT) Color UA Yellow Straw, Yellow 07/29/2021 6:09 AM [facility] Clarity UA Clear Clear 07/29/2021 6:09 AM [facility] Specific Acworth UA 1.012 1.005 - 1.030 07/29/2021 6:09 AM [facility] pH UA 6.0 5.0 - 8.0 pH 07/29/2021 6:09 AM [facility] Protein UA Negative Negative 07/29/2021 6:09 AM [facility] Glucose UA Negative Negative 07/29/2021 6:09 AM [facility] Ketone UA Negative Negative 07/29/2021 6:09 AM [facility] Bilirubin UA Negative Negative 07/29/2021 6:09 AM [facility] Blood UA Negative Negative 07/29/2021 6:09 AM [facility] Nitrite UA Negative Negative 07/29/2021 6:09 AM [facility] Leukocyte Esterase Negative Negative 07/29/2021 6:09 AM [facility] Urobilinogen UA 4.0(A) Negative mg/dL 07/29/2021 6:09 AM CDT [facility] Comment UA Microscopic not indicated. 07/29/2021 6:09 AM CDT [facility] Urine URINE SPECIMEN OBTAINED BY CLEAN CATCH PROCEDURE / Unknown Collection / Unknown 07/29/2021 5:56 AM CDT 07/29/2021 6:00 AM CDT Narrative [facility] - 07/29/2021 6:09 AM CDT José Manuel Palmer MD LAB - URINALYSIS ORDERABLES [facility] [address] [place] [address], [facility] [phone] * CULTURE MRSA (07/29/2021 5:53 AM CDT) Culture Negative for methicillin-resist ant Staphylococcus aureus (MRSA) [place] 07/30/2021 10:34 AM CDT [facility] MICROBIOLOGY Microbiology SPECIMEN FROM NASAL FOSSAE / Unknown Collection / Unknown 07/29/2021 5:53 AM CDT 07/29/2021 6:00 AM CDT José Manuel Palmer MD LAB - MICROBIOLO GY ORDERABLES [facility] MICROBIOLOGY [address] [place] [address], [facility] [phone] * (ABNORMAL) URINALYSIS REFLEX TO MICROSCOPIC NO CULTURE (07/28/2021 4:23 PM CDT) Color UA Yellow Straw, Yellow 07/28/2021 4:33 PM CDT [facility] Clarity UA Clear Clear 07/28/2021 4:33 PM CDT [facility] Specific [place] UA 1.013 1.005 - 1.030 07/28/2021 4:33 PM CDT [facility] pH UA 6.0 5.0 - 8.0 pH 07/28/2021 4:33 PM CDT [facility] Protein UA Negative Negative 07/28/2021 4:33 PM CDT [facility] Glucose UA Negative Negative 07/28/2021 4:33 PM CDT [facility] Ketone UA Negative Negative 07/28/2021 4:33 PM CDT [facility] Bilirubin UA Negative Negative 07/28/2021 4:33 PM CDT [facility] Blood UA Negative Negative 07/28/2021 4:33 PM CDT [facility] Nitrite UA Negative Negative 07/28/2021 4:33 PM CDT [facility] Leukocyte Esterase Negative Negative 07/28/2021 4:33 PM CDT [facility] Urobilinogen UA 4.0(A) Negative mg/dL 07/28/2021 4:33 PM CDT [facility] RBC UA 0-2 None Seen, 0-2, 3-5 /HPF 07/28/2021 4:33 PM CDT [facility] WBC UA 0-5 None Seen, 0-5 /HPF 07/28/2021 4:33 PM CDT [facility] Squamous Epithelial Cells UA 0-2 None Seen, 0-2, 3-5 /HPF 07/28/2021 4:33 PM CDT [facility] Mucus UA 1+ /LPF 07/28/2021 4:33 PM CDT [facility] Hyaline Casts UA 0-2 None Seen, 0-2 /LPF 07/28/2021 4:33 PM CDT [facility] Urine URINE SPECIMEN OBTAINED BY CLEAN CATCH PROCEDURE / Unknown Collection / Unknown 07/28/2021 4:23 PM CDT 07/28/2021 4:23 PM CDT Narrative [facility] - 07/28/2021 4:33 PM CDT Cody Berry MD LAB - URINALYSIS ORD ERABLES [facility] [address] [place] [address], [facility] [phone] * BLOOD TYPE VERIFICATION (07/28/2021 4:14 PM CDT) ABO Rh A POS 07/28/2021 5:1 7 PM CDT [facility] BLOOD [facility] LAB Blood Bank BLOOD SPECIMEN / Unknown 07/28/2021 4:14 PM CDT 07/28/2021 4:52 PM CDT Cody Berry MD LAB - BLOOD BANK ORD ERABLES [facility] BLOOD [facility] LAB [address] [place] [address], [facility] [phone] * CT KNEE RIGHT WO CONTRAST (07/28/2021 3:49 PM CDT) Anatomical Region Laterality Modality Lower Extremity Computed Tomogra phy 07/28/2021 3:44 PM CDT Impressions 07/28/2021 4:04 PM CDT Impression: 1.Acute comminuted moderately displaced intra-articular fracture of the distal femoral shaft with surrounding posttraumatic soft tissue edema. Report drafted by Robert Coto (resident) I, Dr. RJ LARA MD have personally reviewed and interpreted this examination/study. This report was electronically signed by RJ LARA MD on 07/28/2021 4:04 PM . Narrative 07/28/2021 4:04 PM CDT Procedure Information DATE: 07/28/2021 3:07 PM EXAMINATION: Computed tomography (CT) of the right knee without contrast TECHNIQUE: CT of the right knee was performed without contrast according to standard protocol. Clinical Information HISTORY: W19.XXXA: Fall, initial encounter COMPARISON: Right femur radiographs on 07/28/2021 Findings Bones: There is a redemonstrated acute comminuted moderately displaced fracture of the distal femoral shaft, extending into the knee joint. There is a small to moderate joint effusion. Mild osteoarthritic changes are present in the patellofemoral and medial compartments. Vessels: Atherosclerotic changes. Soft tissues: Posttraumatic soft tissue edema is seen. Procedure Note Rj Lara MD - 07/28/2021 Procedure Information DATE: 07/28/2021 3:07 PM EXAMINATION: Computed tomography (CT) of the right knee without contrast TECHNIQUE: CT of the right knee was performed without contrast according tostandard protocol. Clinical Information HISTORY: W19.XXXA: Fall, initial encounter COMPARISON: Right femur radiographs on 07/28/2021 Findings Bones: There is a redemonstrated acute comminuted moderately displaced fracture of the distal femoral shaft, extending into the knee joint. There is a small to moderate joint effusion. Mild osteoarthritic changes arepresent in the patellofemoral and medial compartments. Vessels: Atherosclerotic changes. Soft tissues: Posttraumatic soft tissue edema is seen. Impression: 1.Acute comminuted moderately displaced intra-articular fracture of the distal femoral shaft with surrounding posttraumatic soft tissue edema. Report drafted by Robert Coto (resident) Dr. RJ Marroquin MD have personally reviewed and interpreted this examination/study. This report was electronically signed by RJ ALRA MD on07/28/2021 4:04 PM . Cody Berry MD CT ORDERABLES * CT CHEST ABDOMEN PELVIS WO CONT (07/28/2021 3:49 PM CDT) Anatomical Region Laterality Modality Chest, Abdomen, Pelvis Computed Tomography 07/28/2021 3:49 PM CDT Impressions 07/28/2021 4:34 PM CDT Impression: 1.Nonspecific fat stranding is noted in the eugenio hepatis adjacent to the second portion of the duodenum. The lack of intravenous contrast limits evaluation. Findings may represent duodenitis. Correlation with clinical examination and if indicated endoscopic correlation may be helpful. 2.Right pleural effusion with associated compressive atelectasis. Report drafted by Denny Marcos (resident) Dr. Melanie Marroquin M.D. have personally reviewed and interpreted this examination/study. This report was electronically signed by Melanie TAYLOR M.D. on 07/28/2021 4:34 PM . Narrative 07/28/2021 4:34 PM CDT Procedure Information DATE: 07/28/2021 3:50 PM EXAMINATION: Computed tomography (CT) of the chest, abdomen, and pelvis without contrast TECHNIQUE: CT of the chest, abdomen, and pelvis was performed without contrast according to standard protocol. Clinical Information HISTORY: W19.XXXA: Fall, initial encounter S72.401A: Closed fracture of distal end of right femur, unspecified fracture morphology, initial encounter M79.604: Right leg pain COMPARISON: None. Findings Evaluation of visceral and vascular structures is degraded due to lack of intravenous contrast administration. Chest: Lines/Tubes: None. Lower neck and axillae: Normal. Mediastinum and Paula: Calcified mediastinal lymph nodes. Heart and Pericardium: The cardiac chambers are normal in size. No pericardial fluid or thickening is present. Coronary artery atherosclerosis is present. Lung Parenchyma, Airways, and Pleural Spaces: Moderate size right pleural effusion with associated compressive atelectasis. Mild left basilar and right middle lobe linear atelectasis. Abdomen/pelvis: Hepatobiliary/Gastrointestinal/Pancreas: There is a 1.3 x 1.8 cm hypoattenuating focus in the right hepatic lobe (series 3, image 168) which measures 4 HU and is favored to represent a simple hepatic cyst. The gallbladder is surgically absent. Nonspecific fat stranding is noted in the eugenio hepatis adjacent to the second portion of the duodenum and gallbladder fossa(series 3, image 22). A small hiatal hernia is present. The remainder of the stomach and small bowel are unremarkable. Stool is present throughout the colon without evidence of wall thickening. Colonic diverticulosis is present without evidence of diverticulitis The pancreatic body and tail are unremarkable. Hepatic artery and splenic artery calcifications are present. Spleen: Multiple splenules are present. Kidneys: The kidneys are atrophic bilaterally. Adrenals: Normal. Retroperitoneum/peritoneum: There is no significant mesenteric or retroperitoneal lymphadenopathy. No free air or free fluid is present. Pelvic Structures: The bladder is distended. No free pelvic fluid is present. Vasculature: Scattered atherosclerotic vasculature changes. Bones: The visible osseous structures are intact. A suture anchor is noted in the left humeral head. Degenerative changes throughout the thoracolumbar spine. Soft tissues: Multiple fat containing ventral and umbilical hernias are present. Small right fat-containing inguinal hernia. Procedure Note Janeen Taylor MD - 07/28/2021 Procedure Information DATE: 07/28/2021 3:50 PM EXAMINATION: Computed tomography (CT) of the chest, abdomen, and pelvis without contrast TECHNIQUE: CT of the chest, abdomen, and pelvis was performed without contrast according to standard protocol. Clinical Information HISTORY: W19.XXXA: Fall, initial encounter S72.401A: Closed fracture of distal end of right femur, unspecified fracture morphology, initial encounter M79.604: Right leg pain COMPARISON: None. Findings Evaluation of visceral and vascular structures is degraded due to lackof intravenous contrast administration. Chest: Lines/Tubes: None. Lower neck and axillae: Normal. Mediastinum and Paula: Calcified mediastinal lymph nodes. Heart and Pericardium: The cardiac chambers are normal in size. No pericardial fluid or thickening is present. Coronary artery atherosclerosis is present. Lung Parenchyma, Airways, and Pleural Spaces: Moderate size right pleural effusion with associated compressive atelectasis. Mild left basilar and right middle lobe linear atelectasis. Abdomen/pelvis: Hepatobiliary/Gastrointestinal/Pancreas: There is a 1.3 x 1.8 cm hypoattenuating focus in the right hepatic lobe (series 3, image 168) which measures 4 HU and is favored to represent a simple hepatic cyst. The gallbladder is surgically absent. Nonspecific fat stranding is noted in the eugenio hepatis adjacent to the second portion of the duodenum and gallbladder fossa(series 3, image22). A small hiatal hernia is present. The remainder of the stomach and small bowel are unremarkable. Stool is present throughout the colon without evidence of wall thickening. Colonic diverticulosis is present without evidence of diverticulitis The pancreatic body and tail are unremarkable. Hepatic artery andsplenic artery calcifications are present. Spleen: Multiple splenules are present. Kidneys: The kidneys are atrophic bilaterally. Adrenals: Normal. Retroperitoneum/peritoneum: There is no significant mesenteric or retroperitoneal lymphadenopathy.No free air or free fluid is present. Pelvic Structures: The bladder is distended. No free pelvic fluid is present. Vasculature: Scattered atherosclerotic vasculature changes. Bones: The visible osseous structures are intact. A suture anchor is noted in the left humeral head. Degenerative changes throughout the thoracolumbar spine. Soft tissues: Multiple fat containing ventral and umbilical hernias are present. Small right fat-containing inguinal hernia. Impression: 1.Nonspecific fat stranding is noted in the eugenio hepatis adjacent tothe second portion of the duodenum. The lack of intravenous contrast limits evaluation. Findings may represent duodenitis. Correlation with clinical examination and if indicated endoscopic correlation may be helpful. 2.Right pleural effusion with associated compressive atelectasis. Report drafted by Denny Marcos (resident) Dr. Melanie Marroquin M.D. have personally reviewed and interpretedthis examination/study. This report was electronically signed by Melanie TAYLOR M.D. on 07/28/2021 4:34 PM . Cody Berry MD CT ORDERABLES * CT LUMBAR SPINE WO CONTRAST - T/L-spine trauma, Spine fracture (07/28/2021 3:49 PM CDT) Anatomical Region Laterality Modality Spine Computed Tomogra phy 07/28/2021 3:47 PM CDT Impressions 07/28/2021 5:21 PM CDT IMPRESSION: 1. No acute intracranial process. 2. No evidence of acute fracture in the cervical, thoracic, or lumbar spine. 3. No acute facial bone fractures identified. Please refer to the dedicated report of the CT chest, abdomen and pelvis on the current date for further information outside the spine. This report was electronically signed by ARLYN BHANDARI on 07/28/2021 5:21 PM . Narrative 07/28/2021 5:21 PM CDT EXAMINATION, 07/28/2021 3:50 PM: 1. CT OF THE HEAD WITHOUT CONTRAST 2. CT OF THE MAXILLOFACIAL BONES WITHOUT CONTRAST 3. CT OF THE CERVICAL SPINE WITHOUT CONTRAST 4. CT OF THE THORACIC SPINE WITHOUT CONTRAST 5. CT OF THE LUMBAR SPINE WITHOUT CONTRAST HISTORY: Trauma TECHNIQUE: CT of the head, cervical spine, and maxillofacial bones, orbits, and paranasal sinuses was performed without contrast according to standard protocol. Reformatted axial, sagittal, and coronal images of the thoracic and lumbar spine were obtained by the technologist from a concurrently performed body CT and sent to the workstation for review. COMPARISON: CT brain maxillofacial bones, 07/29/2019-[place], [place] FINDINGS: HEAD: No acute intra- or extra-axial hemorrhage is identified. The ventricles are of normal size, shape, and morphology. The basilar cisterns are patent. No mass effect or midline shift is seen. 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 The winn-white matter differentiation is normal. There are no visible white matter changes. No acute fracture is identified. MAXILLOFACIAL: No acute facial bone fractures are identified. There is no visible soft tissue abnormality. Other than bilateral cataract extractions and scleral banding on the right side, the orbits appear normal. The paranasal sinuses are clear except for partial opacification of some of bilateral ethmoid. The hard palate, mandible, and temporomandibular joints appear intact. The mastoid air cells are clear. CERVICAL SPINE: There is straightening of the cervical spine. No fracture, perched facet, spondylolisthesis or suspicious intrinsic bony lesion is identified. Vertebral bodies are normal in height. Other than middle atlantoaxial joint osteoarthritis, the craniocervical junction appears normal. There is moderate degenerative disc disease at the C5-C6 and C6-C7 and mild degenerative disc disease. No visible posterior disc abnormality, blood in central canal or central canal stenosis is seen. There are moderate osteoarthritis of the C2-C3 and C3-C4 facets and varying degrees of mild facet osteoarthritis. There are varying degrees of moderate to severe uncovertebral joint osteoarthritis at C3-C4, C4-C5 and C5-C6 with the same degree of neural foraminal stenosis at these levels. No soft tissue abnormality is identified. THORACIC SPINE: There is exaggerated kyphosis of the thoracic spine. No fracture, perched facet, spondylolisthesis or suspicious intrinsic bony lesion is identified. Vertebral bodies are normal in height. There is moderate degenerative disc disease at most levels. There is multilevel calcification of ligamentum flavum. No posterior disc abnormality is seen. There is moderate facet osteoarthritis at multiple levels. [id number]-[id number] neural foraminal stenosis is seen in the upper thoracic spine. No paravertebral soft tissue abnormality is identified. Large right pleural effusion and a large calcified mediastinal lymph nodes are noted. LUMBAR SPINE: There is exaggerated lordosis of the lumbar spine. No fracture, perched facet, spondylolisthesis or suspicious intrinsic bony lesion is identified. Vertebral bodies are normal in height. There is mild degenerative disc disease. Advanced bilateral facet osteoarthritis at L4-L5 and L5-S1 and severe bilateral facet osteoarthritis at L3-L4 are associated with severe bilateral lateral recesses stenosis at L4-L5 and L3-L4. There is no evidence of significant disc bulging or visible disc herniation. Severe neural foraminal stenosis is seen at L3-L4, L4-L5 and L5-S1. No soft tissue abnormality is identified. Procedure Note Arlyn Bhandari MD - 07/28/2021 EXAMINATION, 07/28/2021 3:50 PM: 1. CT OF THE HEAD WITHOUT CONTRAST 2. CT OF THE MAXILLOFACIAL BONES WITHOUT CONTRAST 3. CT OF THE CERVICAL SPINE WITHOUT CONTRAST 4. CT OF THE THORACIC SPINE WITHOUT CONTRAST 5. CT OF THE LUMBAR SPINE WITHOUT CONTRAST HISTORY: Trauma TECHNIQUE: CT of the head, cervical spine, and maxillofacial bones, orbits, and paranasal sinuses was performed without contrast accordingto standard protocol. Reformatted axial, sagittal, and coronal images ofthe thoracic and lumbar spine were obtained by the technologist from a concurrently performed body CT and sent to the workstation for review. COMPARISON: CT brain maxillofacial bones, 07/29/2019-[place], [place] FINDINGS: HEAD: No acute intra- or extra-axial hemorrhage is identified. The ventricles are of normal size, shape, and morphology. The basilar cisterns are patent. No mass effect or midline shift is seen. 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 The winn-white matter differentiation is normal. There are no visible white matter changes. No acute fracture is identified. MAXILLOFACIAL: No acute facial bone fractures are identified. There is no visible soft tissue abnormality. Other than bilateral cataract extractions and scleral banding on theright side, the orbits appear normal. The paranasal sinuses are clear exceptfor partial opacification of some of bilateral ethmoid. The hard palate, mandible, and temporomandibular joints appear intact. The mastoid air cells are clear. CERVICAL SPINE: There is straightening of the cervical spine. No fracture, perchedfacet, spondylolisthesis or suspicious intrinsic bony lesion is identified. Vertebral bodies are normal in height. Other than middle atlantoaxial joint osteoarthritis, the craniocervical junction appears normal. Thereis moderate degenerative disc disease at the C5-C6 and C6-C7 and mild degenerative disc disease. No visible posterior disc abnormality, bloodin central canal or central canal stenosis is seen. There are moderate osteoarthritis of the C2-C3 and C3-C4 facets and varying degrees of mild facet osteoarthritis. There are varying degrees of moderate to severe uncovertebral joint osteoarthritis at C3-C4, C4-C5 and C5-C6 with thesame degree of neural foraminal stenosis at these levels. No soft tissue abnormality is identified. THORACIC SPINE: There is exaggerated kyphosis of the thoracic spine. No fracture,perched facet, spondylolisthesis or suspicious intrinsic bony lesion is identified. Vertebral bodies are normal in height. There is moderate degenerative disc disease at most levels. There is multilevel calcification of ligamentum flavum. No posterior disc abnormality isseen. There is moderate facet osteoarthritis at multiple levels. Lyqv-bv-asillqfu neural foraminal stenosis is seen in the upper thoracic spine. No paravertebral soft tissue abnormality is identified. Large right pleural effusion and a large calcified mediastinal lymphnodes are noted. LUMBAR SPINE: There is exaggerated lordosis of the lumbar spine. No fracture, perched facet, spondylolisthesis or suspicious intrinsic bony lesion is identified. Vertebral bodies are normal in height. There is mild degenerative disc disease. Advanced bilateral facet osteoarthritis at L4-L5 and L5-S1 and severe bilateral facet osteoarthritis at L3-L4 are associated with severe bilateral lateral recesses stenosis at L4-L5 and L3-L4. There is no evidence of significant disc bulging or visible disc herniation. Severe neural foraminal stenosis is seen at L3-L4, L4-L5 and L5-S1. No soft tissue abnormality is identified. IMPRESSION: 1. No acute intracranial process. 2. No evidence of acute fracture in the cervical, thoracic, or lumbar spine. 3. No acute facial bone fractures identified. Please refer to the dedicated report of the CT chest, abdomen and pelvis on the current date for further information outside the spine. This report was electronically signed by ARLYN BHANDARI on 07/28/2021 5:21 PM . Cody Berry MD CT ORDERABLES * CT THORACIC SPINE WO CONTRAST - T/L-spine trauma, spine fracture (07/28/2021 3:49 PM CDT) Anatomical Region Laterality Modality Spine Computed Tomogra phy 07/28/2021 3:47 PM CDT Impressions 07/28/2021 5:21 PM CDT IMPRESSION: 1. No acute intracranial process. 2. No evidence of acute fracture in the cervical, thoracic, or lumbar spine. 3. No acute facial bone fractures identified. Please refer to the dedicated report of the CT chest, abdomen and pelvis on the current date for further information outside the spine. This report was electronically signed by ARLYN BHANDARI on 07/28/2021 5:21 PM . Narrative 07/28/2021 5:21 PM CDT EXAMINATION, 07/28/2021 3:50 PM: 1. CT OF THE HEAD WITHOUT CONTRAST 2. CT OF THE MAXILLOFACIAL BONES WITHOUT CONTRAST 3. CT OF THE CERVICAL SPINE WITHOUT CONTRAST 4. CT OF THE THORACIC SPINE WITHOUT CONTRAST 5. CT OF THE LUMBAR SPINE WITHOUT CONTRAST HISTORY: Trauma TECHNIQUE: CT of the head, cervical spine, and maxillofacial bones, orbits, and paranasal sinuses was performed without contrast according to standard protocol. Reformatted axial, sagittal, and coronal images of the thoracic and lumbar spine were obtained by the technologist from a concurrently performed body CT and sent to the workstation for review. COMPARISON: CT brain maxillofacial bones, 07/29/2019-[place], [place] FINDINGS: HEAD: No acute intra- or extra-axial hemorrhage is identified. The ventricles are of normal size, shape, and morphology. The basilar cisterns are patent. No mass effect or midline shift is seen. 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 The winn-white matter differentiation is normal. There are no visible white matter changes. No acute fracture is identified. MAXILLOFACIAL: No acute facial bone fractures are identified. There is no visible soft tissue abnormality. Other than bilateral cataract extractions and scleral banding on the right side, the orbits appear normal. The paranasal sinuses are clear except for partial opacification of some of bilateral ethmoid. The hard palate, mandible, and temporomandibular joints appear intact. The mastoid air cells are clear. CERVICAL SPINE: There is straightening of the cervical spine. No fracture, perched facet, spondylolisthesis or suspicious intrinsic bony lesion is identified. Vertebral bodies are normal in height. Other than middle atlantoaxial joint osteoarthritis, the craniocervical junction appears normal. There is moderate degenerative disc disease at the C5-C6 and C6-C7 and mild degenerative disc disease. No visible posterior disc abnormality, blood in central canal or central canal stenosis is seen. There are moderate osteoarthritis of the C2-C3 and C3-C4 facets and varying degrees of mild facet osteoarthritis. There are varying degrees of moderate to severe uncovertebral joint osteoarthritis at C3-C4, C4-C5 and C5-C6 with the same degree of neural foraminal stenosis at these levels. No soft tissue abnormality is identified. THORACIC SPINE: There is exaggerated kyphosis of the thoracic spine. No fracture, perched facet, spondylolisthesis or suspicious intrinsic bony lesion is identified. Vertebral bodies are normal in height. There is moderate degenerative disc disease at most levels. There is multilevel calcification of ligamentum flavum. No posterior disc abnormality is seen. There is moderate facet osteoarthritis at multiple levels. [id number]-[id number]-[id number] neural foraminal stenosis is seen in the upper thoracic spine. No paravertebral soft tissue abnormality is identified. Large right pleural effusion and a large calcified mediastinal lymph nodes are noted. LUMBAR SPINE: There is exaggerated lordosis of the lumbar spine. No fracture, perched facet, spondylolisthesis or suspicious intrinsic bony lesion is identified. Vertebral bodies are normal in height. There is mild degenerative disc disease. Advanced bilateral facet osteoarthritis at L4-L5 and L5-S1 and severe bilateral facet osteoarthritis at L3-L4 are associated with severe bilateral lateral recesses stenosis at L4-L5 and L3-L4. There is no evidence of significant disc bulging or visible disc herniation. Severe neural foraminal stenosis is seen at L3-L4, L4-L5 and L5-S1. No soft tissue abnormality is identified. Procedure Note Arlyn Bhandari MD - 07/28/2021 EXAMINATION, 07/28/2021 3:50 PM: 1. CT OF THE HEAD WITHOUT CONTRAST 2. CT OF THE MAXILLOFACIAL BONES WITHOUT CONTRAST 3. CT OF THE CERVICAL SPINE WITHOUT CONTRAST 4. CT OF THE THORACIC SPINE WITHOUT CONTRAST 5. CT OF THE LUMBAR SPINE WITHOUT CONTRAST HISTORY: Trauma TECHNIQUE: CT of the head, cervical spine, and maxillofacial bones, orbits, and paranasal sinuses was performed without contrast accordingto standard protocol. Reformatted axial, sagittal, and coronal images ofthe thoracic and lumbar spine were obtained by the technologist from a concurrently performed body CT and sent to the workstation for review. COMPARISON: CT brain maxillofacial bones, 07/29/2019-[place], [place] FINDINGS: HEAD: No acute intra- or extra-axial hemorrhage is identified. The ventricles are of normal size, shape, and morphology. The basilar cisterns are patent. No mass effect or midline shift is seen. 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 The winn-white matter differentiation is normal. There are no visible white matter changes. No acute fracture is identified. MAXILLOFACIAL: No acute facial bone fractures are identified. There is no visible soft tissue abnormality. Other than bilateral cataract extractions and scleral banding on theright side, the orbits appear normal. The paranasal sinuses are clear exceptfor partial opacification of some of bilateral ethmoid. The hard palate, mandible, and temporomandibular joints appear intact. The mastoid air cells are clear. CERVICAL SPINE: There is straightening of the cervical spine. No fracture, perchedfacet, spondylolisthesis or suspicious intrinsic bony lesion is identified. Vertebral bodies are normal in height. Other than middle atlantoaxial joint osteoarthritis, the craniocervical junction appears normal. Thereis moderate degenerative disc disease at the C5-C6 and C6-C7 and mild degenerative disc disease. No visible posterior disc abnormality, bloodin central canal or central canal stenosis is seen. There are moderate osteoarthritis of the C2-C3 and C3-C4 facets and varying degrees of mild facet osteoarthritis. There are varying degrees of moderate to severe uncovertebral joint osteoarthritis at C3-C4, C4-C5 and C5-C6 with thesame degree of neural foraminal stenosis at these levels. No soft tissue abnormality is identified. THORACIC SPINE: There is exaggerated kyphosis of the thoracic spine. No fracture,perched facet, spondylolisthesis or suspicious intrinsic bony lesion is identified. Vertebral bodies are normal in height. There is moderate degenerative disc disease at most levels. There is multilevel calcification of ligamentum flavum. No posterior disc abnormality isseen. There is moderate facet osteoarthritis at multiple levels. Vujf-su-zmakxmsh neural foraminal stenosis is seen in the upper thoracic spine. No paravertebral soft tissue abnormality is identified. Large right pleural effusion and a large calcified mediastinal lymphnodes are noted. LUMBAR SPINE: There is exaggerated lordosis of the lumbar spine. No fracture, perched facet, spondylolisthesis or suspicious intrinsic bony lesion is identified. Vertebral bodies are normal in height. There is mild degenerative disc disease. Advanced bilateral facet osteoarthritis at L4-L5 and L5-S1 and severe bilateral facet osteoarthritis at L3-L4 are associated with severe bilateral lateral recesses stenosis at L4-L5 and L3-L4. There is no evidence of significant disc bulging or visible disc herniation. Severe neural foraminal stenosis is seen at L3-L4, L4-L5 and L5-S1. No soft tissue abnormality is identified. IMPRESSION: 1. No acute intracranial process. 2. No evidence of acute fracture in the cervical, thoracic, or lumbar spine. 3. No acute facial bone fractures identified. Please refer to the dedicated report of the CT chest, abdomen and pelvis on the current date for further information outside the spine. This report was electronically signed by ARLYN BHANDARI on 07/28/2021 5:21 PM . Cody Berry MD CT ORDERABLES * CT CERVICAL SPINE WO CONTRAST - C-Spine Trauma, Spine fracture (07/28/2021 3:49 PM CDT) Anatomical Region Laterality Modality Spine Computed Tomogra phy 07/28/2021 3:47 PM CDT Impressions 07/28/2021 5:21 PM CDT IMPRESSION: 1. No acute intracranial process. 2. No evidence of acute fracture in the cervical, thoracic, or lumbar spine. 3. No acute facial bone fractures identified. Please refer to the dedicated report of the CT chest, abdomen and pelvis on the current date for further information outside the spine. This report was electronically signed by ARLYN BHANDARI on 07/28/2021 5:21 PM . Narrative 07/28/2021 5:21 PM CDT EXAMINATION, 07/28/2021 3:50 PM: 1. CT OF THE HEAD WITHOUT CONTRAST 2. CT OF THE MAXILLOFACIAL BONES WITHOUT CONTRAST 3. CT OF THE CERVICAL SPINE WITHOUT CONTRAST 4. CT OF THE THORACIC SPINE WITHOUT CONTRAST 5. CT OF THE LUMBAR SPINE WITHOUT CONTRAST HISTORY: Trauma TECHNIQUE: CT of the head, cervical spine, and maxillofacial bones, orbits, and paranasal sinuses was performed without contrast according to standard protocol. Reformatted axial, sagittal, and coronal images of the thoracic and lumbar spine were obtained by the technologist from a concurrently performed body CT and sent to the workstation for review. COMPARISON: CT brain maxillofacial bones, 07/29/2019-[place], [place] FINDINGS: HEAD: No acute intra- or extra-axial hemorrhage is identified. The ventricles are of normal size, shape, and morphology. The basilar cisterns are patent. No mass effect or midline shift is seen. 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 The winn-white matter differentiation is normal. There are no visible white matter changes. No acute fracture is identified. MAXILLOFACIAL: No acute facial bone fractures are identified. There is no visible soft tissue abnormality. Other than bilateral cataract extractions and scleral banding on the right side, the orbits appear normal. The paranasal sinuses are clear except for partial opacification of some of bilateral ethmoid. The hard palate, mandible, and temporomandibular joints appear intact. The mastoid air cells are clear. CERVICAL SPINE: There is straightening of the cervical spine. No fracture, perched facet, spondylolisthesis or suspicious intrinsic bony lesion is identified. Vertebral bodies are normal in height. Other than middle atlantoaxial joint osteoarthritis, the craniocervical junction appears normal. There is moderate degenerative disc disease at the C5-C6 and C6-C7 and mild degenerative disc disease. No visible posterior disc abnormality, blood in central canal or central canal stenosis is seen. There are moderate osteoarthritis of the C2-C3 and C3-C4 facets and varying degrees of mild facet osteoarthritis. There are varying degrees of moderate to severe uncovertebral joint osteoarthritis at C3-C4, C4-C5 and C5-C6 with the same degree of neural foraminal stenosis at these levels. No soft tissue abnormality is identified. THORACIC SPINE: There is exaggerated kyphosis of the thoracic spine. No fracture, perched facet, spondylolisthesis or suspicious intrinsic bony lesion is identified. Vertebral bodies are normal in height. There is moderate degenerative disc disease at most levels. There is multilevel calcification of ligamentum flavum. No posterior disc abnormality is seen. There is moderate facet osteoarthritis at multiple levels. Llqh-ig-mprguoci neural foraminal stenosis is seen in the upper thoracic spine. No paravertebral soft tissue abnormality is identified. Large right pleural effusion and a large calcified mediastinal lymph nodes are noted. LUMBAR SPINE: There is exaggerated lordosis of the lumbar spine. No fracture, perched facet, spondylolisthesis or suspicious intrinsic bony lesion is identified. Vertebral bodies are normal in height. There is mild degenerative disc disease. Advanced bilateral facet osteoarthritis at L4-L5 and L5-S1 and severe bilateral facet osteoarthritis at L3-L4 are associated with severe bilateral lateral recesses stenosis at L4-L5 and L3-L4. There is no evidence of significant disc bulging or visible disc herniation. Severe neural foraminal stenosis is seen at L3-L4, L4-L5 and L5-S1. No soft tissue abnormality is identified. Procedure Note Arlyn Bhandari MD - 07/28/2021 EXAMINATION, 07/28/2021 3:50 PM: 1. CT OF THE HEAD WITHOUT CONTRAST 2. CT OF THE MAXILLOFACIAL BONES WITHOUT CONTRAST 3. CT OF THE CERVICAL SPINE WITHOUT CONTRAST 4. CT OF THE THORACIC SPINE WITHOUT CONTRAST 5. CT OF THE LUMBAR SPINE WITHOUT CONTRAST HISTORY: Trauma TECHNIQUE: CT of the head, cervical spine, and maxillofacial bones, orbits, and paranasal sinuses was performed without contrast accordingto standard protocol. Reformatted axial, sagittal, and coronal images ofthe thoracic and lumbar spine were obtained by the technologist from a concurrently performed body CT and sent to the workstation for review. COMPARISON: CT brain maxillofacial bones, 07/29/2019-[place] FINDINGS: HEAD: No acute intra- or extra-axial hemorrhage is identified. The ventricles are of normal size, shape, and morphology. The basilar cisterns are patent. No mass effect or midline shift is seen. 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 The winn-white matter differentiation is normal. There are no visible white matter changes. No acute fracture is identified. MAXILLOFACIAL: No acute facial bone fractures are identified. There is no visible soft tissue abnormality. Other than bilateral cataract extractions and scleral banding on theright side, the orbits appear normal. The paranasal sinuses are clear exceptfor partial opacification of some of bilateral ethmoid. The hard palate, mandible, and temporomandibular joints appear intact. The mastoid air cells are clear. CERVICAL SPINE: There is straightening of the cervical spine. No fracture, perchedfacet, spondylolisthesis or suspicious intrinsic bony lesion is identified. Vertebral bodies are normal in height. Other than middle atlantoaxial joint osteoarthritis, the craniocervical junction appears normal. Thereis moderate degenerative disc disease at the C5-C6 and C6-C7 and mild degenerative disc disease. No visible posterior disc abnormality, bloodin central canal or central canal stenosis is seen. There are moderate osteoarthritis of the C2-C3 and C3-C4 facets and varying degrees of mild facet osteoarthritis. There are varying degrees of moderate to severe uncovertebral joint osteoarthritis at C3-C4, C4-C5 and C5-C6 with thesame degree of neural foraminal stenosis at these levels. No soft tissue abnormality is identified. THORACIC SPINE: There is exaggerated kyphosis of the thoracic spine. No fracture,perched facet, spondylolisthesis or suspicious intrinsic bony lesion is identified. Vertebral bodies are normal in height. There is moderate degenerative disc disease at most levels. There is multilevel calcification of ligamentum flavum. No posterior disc abnormality isseen. There is moderate facet osteoarthritis at multiple levels. Yvrd-ns-hpgnopgu neural foraminal stenosis is seen in the upper thoracic spine. No paravertebral soft tissue abnormality is identified. Large right pleural effusion and a large calcified mediastinal lymphnodes are noted. LUMBAR SPINE: There is exaggerated lordosis of the lumbar spine. No fracture, perched facet, spondylolisthesis or suspicious intrinsic bony lesion is identified. Vertebral bodies are normal in height. There is mild degenerative disc disease. Advanced bilateral facet osteoarthritis at L4-L5 and L5-S1 and severe bilateral facet osteoarthritis at L3-L4 are associated with severe bilateral lateral recesses stenosis at L4-L5 and L3-L4. There is no evidence of significant disc bulging or visible disc herniation. Severe neural foraminal stenosis is seen at L3-L4, L4-L5 and L5-S1. No soft tissue abnormality is identified. IMPRESSION: 1. No acute intracranial process. 2. No evidence of acute fracture in the cervical, thoracic, or lumbar spine. 3. No acute facial bone fractures identified. Please refer to the dedicated report of the CT chest, abdomen and pelvis on the current date for further information outside the spine. This report was electronically signed by ARLYN BHANDARI on 07/28/2021 5:21 PM . Cody Berry MD CT ORDERABLES * CT FACIAL BONES WO CONTRAST - Facial trauma, fx suspected, blunt (07/28/2021 3:49 PM CDT) Anatomical Region Laterality Modality Head Computed Tomogra phy 07/28/2021 3:47 PM CDT Impressions 07/28/2021 5:21 PM CDT IMPRESSION: 1. No acute intracranial process. 2. No evidence of acute fracture in the cervical, thoracic, or lumbar spine. 3. No acute facial bone fractures identified. Please refer to the dedicated report of the CT chest, abdomen and pelvis on the current date for further information outside the spine. This report was electronically signed by ARLYN BHANDARI on 07/28/2021 5:21 PM . Narrative 07/28/2021 5:21 PM CDT EXAMINATION, 07/28/2021 3:50 PM: 1. CT OF THE HEAD WITHOUT CONTRAST 2. CT OF THE MAXILLOFACIAL BONES WITHOUT CONTRAST 3. CT OF THE CERVICAL SPINE WITHOUT CONTRAST 4. CT OF THE THORACIC SPINE WITHOUT CONTRAST 5. CT OF THE LUMBAR SPINE WITHOUT CONTRAST HISTORY: Trauma TECHNIQUE: CT of the head, cervical spine, and maxillofacial bones, orbits, and paranasal sinuses was performed without contrast according to standard protocol. Reformatted axial, sagittal, and coronal images of the thoracic and lumbar spine were obtained by the technologist from a concurrently performed body CT and sent to the workstation for review. COMPARISON: CT brain maxillofacial bones, 07/29/2019[place], [place] FINDINGS: HEAD: No acute intra- or extra-axial hemorrhage is identified. The ventricles are of normal size, shape, and morphology. The basilar cisterns are patent. No mass effect or midline shift is seen. 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 The winn-white matter differentiation is normal. There are no visible white matter changes. No acute fracture is identified. MAXILLOFACIAL: No acute facial bone fractures are identified. There is no visible soft tissue abnormality. Other than bilateral cataract extractions and scleral banding on the right side, the orbits appear normal. The paranasal sinuses are clear except for partial opacification of some of bilateral ethmoid. The hard palate, mandible, and temporomandibular joints appear intact. The mastoid air cells are clear. CERVICAL SPINE: There is straightening of the cervical spine. No fracture, perched facet, spondylolisthesis or suspicious intrinsic bony lesion is identified. Vertebral bodies are normal in height. Other than middle atlantoaxial joint osteoarthritis, the craniocervical junction appears normal. There is moderate degenerative disc disease at the C5-C6 and C6-C7 and mild degenerative disc disease. No visible posterior disc abnormality, blood in central canal or central canal stenosis is seen. There are moderate osteoarthritis of the C2-C3 and C3-C4 facets and varying degrees of mild facet osteoarthritis. There are varying degrees of moderate to severe uncovertebral joint osteoarthritis at C3-C4, C4-C5 and C5-C6 with the same degree of neural foraminal stenosis at these levels. No soft tissue abnormality is identified. THORACIC SPINE: There is exaggerated kyphosis of the thoracic spine. No fracture, perched facet, spondylolisthesis or suspicious intrinsic bony lesion is identified. Vertebral bodies are normal in height. There is moderate degenerative disc disease at most levels. There is multilevel calcification of ligamentum flavum. No posterior disc abnormality is seen. There is moderate facet osteoarthritis at multiple levels. Zebt-tp-nmwqbhau neural foraminal stenosis is seen in the upper thoracic spine. No paravertebral soft tissue abnormality is identified. Large right pleural effusion and a large calcified mediastinal lymph nodes are noted. LUMBAR SPINE: There is exaggerated lordosis of the lumbar spine. No fracture, perched facet, spondylolisthesis or suspicious intrinsic bony lesion is identified. Vertebral bodies are normal in height. There is mild degenerative disc disease. Advanced bilateral facet osteoarthritis at L4-L5 and L5-S1 and severe bilateral facet osteoarthritis at L3-L4 are associated with severe bilateral lateral recesses stenosis at L4-L5 and L3-L4. There is no evidence of significant disc bulging or visible disc herniation. Severe neural foraminal stenosis is seen at L3-L4, L4-L5 and L5-S1. No soft tissue abnormality is identified. Procedure Note Arlyn Bhandari MD - 07/28/2021 EXAMINATION, 07/28/2021 3:50 PM: 1. CT OF THE HEAD WITHOUT CONTRAST 2. CT OF THE MAXILLOFACIAL BONES WITHOUT CONTRAST 3. CT OF THE CERVICAL SPINE WITHOUT CONTRAST 4. CT OF THE THORACIC SPINE WITHOUT CONTRAST 5. CT OF THE LUMBAR SPINE WITHOUT CONTRAST HISTORY: Trauma TECHNIQUE: CT of the head, cervical spine, and maxillofacial bones, orbits, and paranasal sinuses was performed without contrast accordingto standard protocol. Reformatted axial, sagittal, and coronal images ofthe thoracic and lumbar spine were obtained by the technologist from a concurrently performed body CT and sent to the workstation for review. COMPARISON: CT brain maxillofacial bones, 07/29/2019-[place] FINDINGS: HEAD: No acute intra- or extra-axial hemorrhage is identified. The ventricles are of normal size, shape, and morphology. The basilar cisterns are patent. No mass effect or midline shift is seen. 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 The winn-white matter differentiation is normal. There are no visible white matter changes. No acute fracture is identified. MAXILLOFACIAL: No acute facial bone fractures are identified. There is no visible soft tissue abnormality. Other than bilateral cataract extractions and scleral banding on theright side, the orbits appear normal. The paranasal sinuses are clear exceptfor partial opacification of some of bilateral ethmoid. The hard palate, mandible, and temporomandibular joints appear intact. The mastoid air cells are clear. CERVICAL SPINE: There is straightening of the cervical spine. No fracture, perchedfacet, spondylolisthesis or suspicious intrinsic bony lesion is identified. Vertebral bodies are normal in height. Other than middle atlantoaxial joint osteoarthritis, the craniocervical junction appears normal. Thereis moderate degenerative disc disease at the C5-C6 and C6-C7 and mild degenerative disc disease. No visible posterior disc abnormality, bloodin central canal or central canal stenosis is seen. There are moderate osteoarthritis of the C2-C3 and C3-C4 facets and varying degrees of mild facet osteoarthritis. There are varying degrees of moderate to severe uncovertebral joint osteoarthritis at C3-C4, C4-C5 and C5-C6 with thesame degree of neural foraminal stenosis at these levels. No soft tissue abnormality is identified. THORACIC SPINE: There is exaggerated kyphosis of the thoracic spine. No fracture,perched facet, spondylolisthesis or suspicious intrinsic bony lesion is identified. Vertebral bodies are normal in height. There is moderate degenerative disc disease at most levels. There is multilevel calcification of ligamentum flavum. No posterior disc abnormality isseen. There is moderate facet osteoarthritis at multiple levels. Onmv-cc-jhfqtfry neural foraminal stenosis is seen in the upper thoracic spine. No paravertebral soft tissue abnormality is identified. Large right pleural effusion and a large calcified mediastinal lymphnodes are noted. LUMBAR SPINE: There is exaggerated lordosis of the lumbar spine. No fracture, perched facet, spondylolisthesis or suspicious intrinsic bony lesion is identified. Vertebral bodies are normal in height. There is mild degenerative disc disease. Advanced bilateral facet osteoarthritis at L4-L5 and L5-S1 and severe bilateral facet osteoarthritis at L3-L4 are associated with severe bilateral lateral recesses stenosis at L4-L5 and L3-L4. There is no evidence of significant disc bulging or visible disc herniation. Severe neural foraminal stenosis is seen at L3-L4, L4-L5 and L5-S1. No soft tissue abnormality is identified. IMPRESSION: 1. No acute intracranial process. 2. No evidence of acute fracture in the cervical, thoracic, or lumbar spine. 3. No acute facial bone fractures identified. Please refer to the dedicated report of the CT chest, abdomen and pelvis on the current date for further information outside the spine. This report was electronically signed by ARLYN BHANDARI on 07/28/2021 5:21 PM . Cody Berry MD CT ORDERABLES * CT HEAD WO CONTRAST - Head Trauma, CSF leak, mental status changes (07/28/2021 3:49 PM CDT) Anatomical Region Laterality Modality Head Computed Tomogra phy 07/28/2021 3:47 PM CDT Impressions 07/28/2021 5:21 PM CDT IMPRESSION: 1. No acute intracranial process. 2. No evidence of acute fracture in the cervical, thoracic, or lumbar spine. 3. No acute facial bone fractures identified. Please refer to the dedicated report of the CT chest, abdomen and pelvis on the current date for further information outside the spine. This report was electronically signed by ARLYN BHANDARI on 07/28/2021 5:21 PM . Narrative 07/28/2021 5:21 PM CDT EXAMINATION, 07/28/2021 3:50 PM: 1. CT OF THE HEAD WITHOUT CONTRAST 2. CT OF THE MAXILLOFACIAL BONES WITHOUT CONTRAST 3. CT OF THE CERVICAL SPINE WITHOUT CONTRAST 4. CT OF THE THORACIC SPINE WITHOUT CONTRAST 5. CT OF THE LUMBAR SPINE WITHOUT CONTRAST HISTORY: Trauma TECHNIQUE: CT of the head, cervical spine, and maxillofacial bones, orbits, and paranasal sinuses was performed without contrast according to standard protocol. Reformatted axial, sagittal, and coronal images of the thoracic and lumbar spine were obtained by the technologist from a concurrently performed body CT and sent to the workstation for review. COMPARISON: CT brain maxillofacial bones, 07/29/2019-[place], [place] FINDINGS: HEAD: No acute intra- or extra-axial hemorrhage is identified. The ventricles are of normal size, shape, and morphology. The basilar cisterns are patent. No mass effect or midline shift is seen. 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 The winn-white matter differentiation is normal. There are no visible white matter changes. No acute fracture is identified. MAXILLOFACIAL: No acute facial bone fractures are identified. There is no visible soft tissue abnormality. Other than bilateral cataract extractions and scleral banding on the right side, the orbits appear normal. The paranasal sinuses are clear except for partial opacification of some of bilateral ethmoid. The hard palate, mandible, and temporomandibular joints appear intact. The mastoid air cells are clear. CERVICAL SPINE: There is straightening of the cervical spine. No fracture, perched facet, spondylolisthesis or suspicious intrinsic bony lesion is identified. Vertebral bodies are normal in height. Other than middle atlantoaxial joint osteoarthritis, the craniocervical junction appears normal. There is moderate degenerative disc disease at the C5-C6 and C6-C7 and mild degenerative disc disease. No visible posterior disc abnormality, blood in central canal or central canal stenosis is seen. There are moderate osteoarthritis of the C2-C3 and C3-C4 facets and varying degrees of mild facet osteoarthritis. There are varying degrees of moderate to severe uncovertebral joint osteoarthritis at C3-C4, C4-C5 and C5-C6 with the same degree of neural foraminal stenosis at these levels. No soft tissue abnormality is identified. THORACIC SPINE: There is exaggerated kyphosis of the thoracic spine. No fracture, perched facet, spondylolisthesis or suspicious intrinsic bony lesion is identified. Vertebral bodies are normal in height. There is moderate degenerative disc disease at most levels. There is multilevel calcification of ligamentum flavum. No posterior disc abnormality is seen. There is moderate facet osteoarthritis at multiple levels. Gsgl-bv-wfrpuvnp neural foraminal stenosis is seen in the upper thoracic spine. No paravertebral soft tissue abnormality is identified. Large right pleural effusion and a large calcified mediastinal lymph nodes are noted. LUMBAR SPINE: There is exaggerated lordosis of the lumbar spine. No fracture, perched facet, spondylolisthesis or suspicious intrinsic bony lesion is identified. Vertebral bodies are normal in height. There is mild degenerative disc disease. Advanced bilateral facet osteoarthritis at L4-L5 and L5-S1 and severe bilateral facet osteoarthritis at L3-L4 are associated with severe bilateral lateral recesses stenosis at L4-L5 and L3-L4. There is no evidence of significant disc bulging or visible disc herniation. Severe neural foraminal stenosis is seen at L3-L4, L4-L5 and L5-S1. No soft tissue abnormality is identified. Procedure Note Arlyn Bhandari MD - 07/28/2021 EXAMINATION, 07/28/2021 3:50 PM: 1. CT OF THE HEAD WITHOUT CONTRAST 2. CT OF THE MAXILLOFACIAL BONES WITHOUT CONTRAST 3. CT OF THE CERVICAL SPINE WITHOUT CONTRAST 4. CT OF THE THORACIC SPINE WITHOUT CONTRAST 5. CT OF THE LUMBAR SPINE WITHOUT CONTRAST HISTORY: Trauma TECHNIQUE: CT of the head, cervical spine, and maxillofacial bones, orbits, and paranasal sinuses was performed without contrast accordingto standard protocol. Reformatted axial, sagittal, and coronal images ofthe thoracic and lumbar spine were obtained by the technologist from a concurrently performed body CT and sent to the workstation for review. COMPARISON: CT brain maxillofacial bones, 07/29/2019-[place], [place] FINDINGS: HEAD: No acute intra- or extra-axial hemorrhage is identified. The ventricles are of normal size, shape, and morphology. The basilar cisterns are patent. No mass effect or midline shift is seen. 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 The winn-white matter differentiation is normal. There are no visible white matter changes. No acute fracture is identified. MAXILLOFACIAL: No acute facial bone fractures are identified. There is no visible soft tissue abnormality. Other than bilateral cataract extractions and scleral banding on theright side, the orbits appear normal. The paranasal sinuses are clear exceptfor partial opacification of some of bilateral ethmoid. The hard palate, mandible, and temporomandibular joints appear intact. The mastoid air cells are clear. CERVICAL SPINE: There is straightening of the cervical spine. No fracture, perchedfacet, spondylolisthesis or suspicious intrinsic bony lesion is identified. Vertebral bodies are normal in height. Other than middle atlantoaxial joint osteoarthritis, the craniocervical junction appears normal. Thereis moderate degenerative disc disease at the C5-C6 and C6-C7 and mild degenerative disc disease. No visible posterior disc abnormality, bloodin central canal or central canal stenosis is seen. There are moderate osteoarthritis of the C2-C3 and C3-C4 facets and varying degrees of mild facet osteoarthritis. There are varying degrees of moderate to severe uncovertebral joint osteoarthritis at C3-C4, C4-C5 and C5-C6 with thesame degree of neural foraminal stenosis at these levels. No soft tissue abnormality is identified. THORACIC SPINE: There is exaggerated kyphosis of the thoracic spine. No fracture,perched facet, spondylolisthesis or suspicious intrinsic bony lesion is identified. Vertebral bodies are normal in height. There is moderate degenerative disc disease at most levels. There is multilevel calcification of ligamentum flavum. No posterior disc abnormality isseen. There is moderate facet osteoarthritis at multiple levels. [id number]-vk-[id number] neural foraminal stenosis is seen in the upper thoracic spine. No paravertebral soft tissue abnormality is identified. Large right pleural effusion and a large calcified mediastinal lymphnodes are noted. LUMBAR SPINE: There is exaggerated lordosis of the lumbar spine. No fracture, perched facet, spondylolisthesis or suspicious intrinsic bony lesion is identified. Vertebral bodies are normal in height. There is mild degenerative disc disease. Advanced bilateral facet osteoarthritis at L4-L5 and L5-S1 and severe bilateral facet osteoarthritis at L3-L4 are associated with severe bilateral lateral recesses stenosis at L4-L5 and L3-L4. There is no evidence of significant disc bulging or visible disc herniation. Severe neural foraminal stenosis is seen at L3-L4, L4-L5 and L5-S1. No soft tissue abnormality is identified. IMPRESSION: 1. No acute intracranial process. 2. No evidence of acute fracture in the cervical, thoracic, or lumbar spine. 3. No acute facial bone fractures identified. Please refer to the dedicated report of the CT chest, abdomen and pelvis on the current date for further information outside the spine. This report was electronically signed by ARLYN BHANDARI on 07/28/2021 5:21 PM . Cody Berry MD CT ORDERABLES * PTT [facility] (07/28/2021 1:43 PM CDT) APTT 35.2 23.0 - 38.4 Seconds 07/28/2021 2:08 PM CDT [facility] Comment:Suggested therapeuti c range for full dose I.V. unfractionated heparin therapy for venous thromboembolism is 71 to 109 seconds. Blood BLOOD SPECIMEN / Unknown Venipuncture / Unknown 07/28/2021 1:43 PM CDT 07/28/2021 1:49 PM CDT Cody Berry MD LAB - COAGULATION OR DERABLES [facility] [address] [place] [id number], [facility] [phone] * HEPATITIS C AB SCREEN RFLX NAAT QUANT (07/28/2021 1:43 PM CDT) [facility] Hepatitis C Antibody Non-react oma Non-reac tive 07/28/2021 2:31 PM CDT [facility] Comment:Hepatitis C Antibody screen indicates no [...] Nelson MD LAB - CHEMISTRY PRATEEK CAMEJO [facility] Organization Address City/State/ZIP Co de Phone Number [facility] [address] [place] [phone], [facility] [phone] * (ABNORMAL) CBC W AUTO DIFFERENTIAL (07/28/2021 1:43 PM CDT) [facility] WBC 7.7 3.5 - 10.5 10 3/uL 07/28/2021 2:05 PM [facility] RBC 4.21(L) 4.30 - 5.70 10 6/uL 07/28/2021 2:05 PM [facility] Hemoglobin 11.3(L) 12.0 - 17.6 g/dL 07/28/2021 2:05 PM [facility] Hematocrit 37.1 35.2 - 51.7 % 07/28/2021 2:05 PM [facility] MCV 88.1 80.7 - 98.3 fL 07/28/2021 2:05 PM [facility] MCH 26.8 26.7 - 34.0 pg 07/28/2021 2:05 PM [facility] MCHC 30.5(L) 30.8 - 35.9 g/dL 07/28/2021 2:05 PM [facility] Platelet Count 267 150 - 400 10 3/uL 07/28/2021 2:05 PM [facility] RDW-SD 49.9 36.0 - 50.0 fL 07/28/2021 2:05 PM [facility] RDW-CV 15.5(H) 11.2 - 14.8 % 07/28/2021 2:05 PM [facility] MPV 11.1 9.4 - 12.9 fL 07/28/2021 2:05 PM [facility] nRBC Absolute 0.00 0 10 3/uL 07/28/2021 2:05 PM [facility] nRBC Auto 0.0 0 /100 WBC 07/28/2021 2:05 PM [facility] Neutrophils % 78.4(H) 35.0 - 70.0 % 07/28/2021 2:05 PM [facility] Lymphocytes % 6.9(L) 20.0 - 43.0 % 07/28/2021 2:05 PM [facility] Monocytes % 12.2 5.0 - 13.0 % 07/28/2021 2:05 PM [facility] Eosinophils % 1.4 0.0 - 6.0 % 07/28/2021 2:05 PM [facility] Basophil % 0.8 0.0 - 2.0 % 07/28/2021 2:05 PM [facility] Neutrophils Absolute 6.0 1.6 - 7.0 10 3/uL 07/28/2021 2:05 PM [facility] Lymphocyte Absolute 0.5(L) 1.1 - 3.9 10 3/uL 07/28/2021 2:05 PM [facility] Monocytes Absolute 0.94 0.26 - 1.07 10 3/uL 07/28/2021 2:05 PM [facility] Eosinophils Absolute 0.11 0.00 - 0.47 10 3/uL 07/28/2021 2:05 PM [facility] Basophils Absolute 0.06 0.00 - 0.08 10 3/uL 07/28/2021 2:05 PM [facility] Immature Granulocytes % 0.3 0.0 - 1.0 % 07/28/2021 2:05 PM [facility] Immature Granulocytes Absolute 0.02 07/28/2021 2:05 PM [facility] Blood BLOOD SPECIMEN / Unknown Venipuncture / Unknown 07/28/2021 1:43 PM CDT 07/28/2021 1:51 PM CDT Cody Berry MD LAB - HEMATOLOGY ORD ERABLES [facility] [address] [place] [address], [facility] [phone] * EKG 12-LEAD (07/28/2021 1:30 PM CDT) Pathologist [facility] Ventricular Rate 102 BPM SL MUSE Atrial Rate 102 BPM [facility] M[facility] P-R Interval 144 ms [facility] QRS Duration ms 170 ms [facility] Q-T Interval ms 406 ms [facility] QTC Calculation (Bezet) 529 ms [facility] M[facility] Calculated R Pound -91 degrees SL MUSE Calculated T Pound 64 degrees [facility] Interpretation EKG SINUS TACHYCARDIA RIGHT SUPERIOR AXIS DEVIATION RIGHT BUNDLE BRANCH BLOCK ABNORMAL ECG WHEN COMPARED WITH ECG OF 19-JUL-2003 09:39 RIGHT BUNDLE BRANCH BLOCK IS NOW PRESENT RIGHT SUPERIOR AXIS DEVIATION IS NOW PRESENT Confirmed by Milton Rosas ([id number]) on 07/30/2021 9:29:56 AM [facility] MUSE 07/28/2021 1:30 PM CDT 07/30/2021 9:29 AM CDT Cody Berry MD ECG ORDERABLES Performing Organization Address City/[facility]/ZIP Co de Phone Number [facility] Care Teams Personal Banker Relationship Specialty Start Date End Date Taco Ho MD [address] [place] [phone] PCP - General 08/07/21
--- OUTSIDE RECORDS SUMMARY | 2024-05-13 14:47 | XMS_ITS | Clinical Summary ---
Author Organization [facility] [address] Address [address] [place] [address] Care Team Providers Care Dietary Aide Name Role Phone Alicia Malcolm MD Primary [...] 04/06/2023 Assessment & Plan (02/05/2024 11:38 AM CAST SHELL GRINDER): Venous insufficiency noted to both lower extremities [...] Morbid obesity with BMI of 40.0-44.9, adult 09/2017 Hypertensive heart and kidney disease 03/23/2015 [...] Resolved Date Chronic diastolic congestive heart failure ([facility]) 02/28/2021 09/27/2022 Chronic right-sided CHF (con gestive heart failure) (CMS/HCC) 11/05/2017 05/13/2018 Encounters Date Type Department Care Team Description 04/27/2024 2:00 PM CAST SHELL GRINDER Ancillary Procedure [facility] Vascular and Vein Surgery at [address] [place] [address] 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 other part of foot ([facility]) 02/25/2024 Telephone [facility] Vascular and Vein Surgery [address] [place] [address] Jose Antonio Perez MD 02/20/2024 1:00 PM CAST SHELL GRINDER Office Visit [facility] Cardiology at [address] [place] [address] Anirudh Wise MD Pericardial effusion (Primary Dx); Chronic heart failure with preserved ejection fraction (CMS/HCC) (HCC); Hypertensive heart disease with chronic diastolic congestive heart failure (CMS/HCC) (HCC); AMELIA treated with BiPAP from Last 3 Months Medical History Medical History Date Comments CHF (congestive heart failure) (CMS/HCC) (HCC) Chronic kidney disease Sleep apnea Shortness of breath Hypertension Hyperlipidemia Family History Medical History Relation Name Comments Heart failure Father 2 Congestive hea rt failure; Cause of : Congestive heart failure Relation Name Status Comments Father 1 (Age 79) Father 2 Social History Tobacco Use Types Packs/Day Years Used Date Smoking Tobacco: Former Alcohol Use Standard Drinks/Week Comments Yes 0 (1 standard drink = 0.6 oz pur e alcohol) Sex and Gender Information Value Date Recorded Sex Assigned at Not on file Legal Sex Male 1:10 PM CAST SHELL GRINDER Gender Identity Not on file Sexual Orientation Not on file Obstetrics History Last Filed Vital Signs Vital Sign Reading Time Taken Comments Blood Pressure 118/70 02/20/2024 12:58 PM CAST SHELL GRINDER Pulse 94 02/20/2024 12:58 PM CAST SHELL GRINDER Temperature 36.8 C (98.2 F) 12/25/2019 11:12 AM CDT Respiratory Rate 15 02/04/2020 11:41 AM CAST SHELL GRINDER Oxygen Saturation 98% 02/20/2024 12:58 PM CAST SHELL GRINDER Inhaled Oxygen Concentration - - Weight 151 kg (333 lb) 02/05/2024 10:54 AM CAST SHELL GRINDER Height 185.4 cm (6' 1 ) 02/20/2024 12:58 PM CAST SHELL GRINDER Body Mass Index 43.93 02/05/2024 10:54 AM CAST SHELL GRINDER Plan of Treatment Health Maintenance Due Date Last Done Comments Colon Cancer Screening-Colonoscopy 1950 Depression Screening 1950 Hepatitis C Screening 1950 DTaP/Tdap/Td Vaccine (1 - Tdap) 02/09/1960 Hepatitis B Screening 1967 Zoster Vaccine (1 of 2) 1999 Well Visit 65+ 2014 Fall Risk Assessment 02/03/2021 02/04/2020 Influenza Vaccine (#1) 2023 0, 01/21/2019, 01/10/2017, Additional history exists Pneumococcal vaccine 65+ Completed 01/12/2020, 12/31 Abdominal Aortic Aneurysm (A AA) Screen Completed 07/28/2021 Procedures Procedure Name Priority Date/Time Associated Diagnosis Comments US ARTERIAL DOPPLER LOWER EXTREMITY BILATERAL Schedule Routine, Read Routine (OP Routine) 04/27/2024 2:47 PM CAST SHELL GRINDER 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 other part of foot (HCC) from Last 3 Months Results * US Arterial Doppler Lower Extremity Bilateral (04/27/2024 2:47 PM CAST SHELL GRINDER) LV EF % CONS SCIMAGE Anatomical Region Laterality Modality Vascular Bilateral Ultrasound 04/27/2024 1:43 PM CAST SHELL GRINDER Narrative 04/28/2024 10:11 AM CAST SHELL GRINDER Vascular & Vein Surgery [address] [place] [address] Lower Extremity Arterial Doppler Report Patient Name: IRWIN CYR E : 1950 Study Date: 04/27/2024 1:43:00 PM Gender: M Gear Machine Operator: Beverly Barbour RVT Location: [facility] Ref Provider: JOSE ANTONIO PEREZ Quality: Adequate Order Provider: JOSE ANTONIO PEREZ PROCEDURES: Arterial Report: Bilateral lower extremity arterial Doppler exam at rest. INDICATIONS: Recurrent Rt foot wound. HISTORY: Hypertension. Hyperlipidemia. Congestive heart failure. Former smoker. COMPARISONS: The previous exam was completed on 12/03/23 @ [facility]. MEASUREMENTS: Right Value Left Value Rt Brachial Pressure 108 mmHg Lt Brachial Pressure 118 mmHg Rt BECK TENDER Pressure >200 mmHg Lt BECK TENDER Pressure >200 mmHg Rt DPA Pressure 0 [...] Electronically Signed By: Jose Antonio Perez MD [facility] 04/28/2024 10:11:16 AM CAST SHELL GRINDER Procedure Note Jose Antonio Perez MD - 04/28/2024 Vascular & Vein Surgery [address] [place] [address]. [place] [address] Lower Extremity Arterial Doppler Report Patient Name: IRWIN CYR E : 1950 Study Date: 04/27/2024 1:43:00 PM Gender: M Gear Machine Operator: Beverly Barbour RVRosalie Location: [facility] Ref Provider: JOSE ANTONIO PEREZ Quality: Adequate Order Provider: JOSE ANTONIO PEREZ PROCEDURES: Arterial Report: Bilateral lower extremity arterial Doppler exam at rest. INDICATIONS: Recurrent Rt foot wound. HISTORY: Hypertension. Hyperlipidemia. Congestive heart failure. Former smoker. COMPARISONS: The previous exam was completed on 12/03/23 @ [place]. MEASUREMENTS: Right Value Left Value Rt Brachial Pressure 108 mmHg Lt Brachial Pressure 118 mmHg Rt BECK TENDER Pressure >200 mmHg Lt BECK TENDER Pressure >200 mmHg Rt DPA Pressure 0 [...] exam due to [facility] immobility[facility] D[facility] waveforms due to limb size bilaterally [...] Electronically Signed By: Jose Antonio Perez MD [facility] 04/28/2024 10:11:16 AM CAST SHELL GRINDER Jose Antonio Perez MD [facility] PROCEDURES Final Result from Last 3 Months Insurance MEDICARE RAILROAD MEDICARE RAILROAD [facility] MEDICARE SUPPLEMENT Care Teams Dietary Aide Relationship Specialty Start Date End Date Alicia Malcolm MD PCP - General Family Practice 10/31/17
--- OUTSIDE RECORDS SUMMARY | 2024-05-13 14:48 | XMS_ITS | Encounter Summary ---
Author Organization [facility] Address [address], [place] [address] Phone Care Team Providers Care Wheel Assembler Name Role Phone Alicia Malcolm MD Primary Care Provider Reason for Visit * Reason Comments Med Refill Encounter Details Date Type Department Care Team (Late st Contact Info) Description 02/23/2019 Refill [facility] Nephrology and Hypertension [address] [place] [address], [address] [place] [address] Chester Longo MD [address] [facility], [address] [place] [address] Social History Tobacco Use Types Packs/Day Years [...] on filedocumented in this encounter Care Teams Wheel Assembler Relationship Specialty Start Date End Date Alicia Malcolm MD [address] [place] [address] PCP - General Internal Medicine 08/05/18 documented as of this encounter
--- OUTSIDE RECORDS SUMMARY | 2024-05-13 14:48 | XMS_ITS | Encounter Summary ---
Author Organization [facility] Address [address], [place] [address] Phone Care Team Providers Care Armament Repairer Name Role Phone Alicia Malcolm MD Primary Care Provider Reason for Visit * Reason Comments Med Refill Encounter Details Date Type Department Care Team (Late st Contact Info) Description 05/25/2019 Refill [facility] Nephrology and Hypertension [address] [place] [address], [address] [place] [address] Chester Longo MD [address] [place] [address] Social History Tobacco Use Types Packs/Day Years [...] on filedocumented in this encounter Care Teams Armament Repairer Relationship Specialty Start Date End Date Alicia Malcolm MD [address] [place] [address] PCP - General Internal Medicine 08/05/18 documented as of this encounter
[2024-05-13 15:45] LABS: Basophils Absolute Auto 0.1 K/mm3 (0.0-0.1); Basophils Percent Auto 0.5 % (0.2-1.2); Eosinophils Absolute Auto 0.3 K/mm3 (0-0.3); Eosinophils Percent Auto 2.6 % (0-4.4); Hematocrit 32.8 % (42.0-52.0); Hemoglobin 9.5 g/dL (14.0-18.0); Immature Granulocyte Absolute 0.07 K/mm3 (0.00-0.031); Immature Granulocyte Percent A 0.7 % (0-0.5); Lymphocytes Absolute Auto 0.44 K/mm3 (0.9-3.2); Lymphocytes Percent Auto 4.2 % (18.3-44.2); Mean Corpuscular Hemoglobin 27.9 pg (26-34); Mean Corpuscular Volume 96.5 fl (80-100); Mean Platelet Volume 9.8 fl (7.4-10.4); Monocytes Absolute Auto 0.7 K/mm3 (0.1-0.6); Monocytes Percent Auto 6.6 % (2.6-8.5); Neutrophils Absolute Auto 9.1 K/mm3 (1.3-6.7); Neutrophils Percent Auto 85.4 % (45.5-73.1); Platelet Count Result 319 k/mm3 (150-375); Red Cell Distribution Width 17.8 % (11.5-14.5); White Blood Count 10.6 K/mm3 (4.5-10.0)
[2024-05-13 15:55] LABS: Alanine Aminotransferase 8 U/L (6-50); Albumin Level 3.5 g/dL (3.5-5.1); Alkaline Phosphatase 63 U/L (38-126); Anion Gap 8 mmol/L (4-12); Aspartate Amino Transferase 14 U/L (17-59); Bilirubin,Total 0.5 mg/dL (0.2-1.3); Blood Urea Nitrogen 40 mg/dL (9-20); Calcium 8.3 mg/dL (8.4-10.2); Carbon Dioxide 26 mmol/L (22-30); Chloride 98 mmol/L (98-107); Estimated CRCL calculation 41 ml/min; Estimated Glomerular Filt Rate 27; Glucose 105 mg/dL (65-110); Potassium 4.9 mmol/L (3.4-5.0); Sodium 132 mmol/L (137-145)
[2024-05-13] MEDS: VANCOMYCIN 1,000 MG/NS 250 ML 1,000 MG/250 ML BAG 250 MG IVPB (16:00)
[2024-05-13 16:09] LABS: Platelet Estimate Adequate (Adequate)
[2024-05-13 16:10] LABS: Hypochromasia 1+; Schistocytes None Seen
[2024-05-13 16:11] LABS: Anisocytosis 2+
--- NOTE | 2024-05-13 16:55 | ED_ITS ---
HPI - Skin/Abscess/Foreign Bdy General Chief complaint: Skin/Abscess/Foreign Body Stated complaint: SOB Time Seen by Provider: 05/13/24 14:33 History of Present Illness HPI narrative: Patient presents here with right foot infection, he has had increased pain and some drainage and skin changes to his right foot, worsen his usual chronic venous stasis ulcer, he has had this in the past and this feels similar. No systemic symptoms. Related Data Home Medications ?Medication ?Instructions ?Recorded ?Confirmed ?Last Taken ?Type loratadine 10 mg tablet (Claritin) 10 mg PO DAILY 07/12/20 04/13/24 03/04/24 History polyethylene glycol 3350 17 17 g PO DAILY PRN Constipation 06/02/21 04/13/24 03/04/24 History gram/dose oral powder (Miralax) acetazolamide 250 mg tablet 250 mg PO DAILY 11/19/22 04/13/24 03/04/24 History fluticasone propionate 50 1 spray intranasal DAILY PRN 11/19/22 04/13/24 03/04/24 History mcg/actuation nasal Congestion spray,suspension (Flonase Allergy Relief) minoxidil 10 mg tablet 10 mg PO DAILY 11/19/22 04/13/24 03/04/24 History levothyroxine 200 mcg tablet 200 mcg PO DAILY 08/30/23 04/13/24 03/04/24 History acetaminophen 325 mg tablet 500 mg PO Q4H PRN Mild Pain (1-3) 01/15/24 04/13/24 03/04/24 History Or Fever Allergies Allergy/AdvReac Type Severity Reaction Status Date / Time oxycodone (From OxyContin) Allergy Mild Nausea Verified 04/13/24 13:53 Sulfa (Sulfonamide Allergy Mild Rash Verified 04/13/24 13:53 Antibiotics) Penicillins Allergy Unknown SWELLING Verified 04/13/24 13:53 codeine AdvReac Mild N/V Verified 04/13/24 13:53 hydrocodone AdvReac Mild N/V Verified 04/13/24 13:53 tramadol AdvReac Mild Nausea Verified 04/13/24 13:53 Review of Systems 2 Review of Systems: All systems reviewed & are unremarkable except as noted in HPI and below PMFSH Past Medical History Medical History (Updated 05/13/24 @ 17:54 by Kena Tran MD) Self-care deficit Peripheral vascular disease Morbid obesity with body mass index (BMI) of 40.0 or higher Neuropathic pain Gout Sepsis Chronic acquired lymphedema Chronic anemia Obstructive sleep apnea Chronic kidney disease Atrial fibrillation Lymphedema of both lower extremities Environmental allergies Ocular rosacea Rosacea Chronic low back pain Chronic venous insufficiency GERD without esophagitis Chronic congestive heart failure Echocardiogram in May 2021 was technically difficult and showed normal LV systolic function with an EF of 60 to 65%, severely enlarged RV chamber with moderate to severely reduced RV systolic function, severe biatrial enlargement, and moderate pulmonary hypertension. Dyslipidemia Essential (primary) hypertension Peripheral polyneuropathy Hypothyroidism Surgical History Surgical History History of carpal tunnel release History of thoracic surgery Pericardial effusion s/p pericardial window thought secondary to minoxidil, in 2010 at [facility]. H/O eye surgery (~2005) [id number] [facility] History of foot surgery Left Foot History of cholecystectomy (2008) History of rotator cuff surgery Bilateral. History of discectomy (2012) Family History Family History Father Cardiovascular disease Grandparent Cancer Mother COPD (chronic obstructive pulmonary disease) Social History Social History Social History: Surrogate medical decision maker: Shyla Hurst, daughter. Code status: Full code. Smoking packs per day: 2 Smoking cigarettes per day: 40.0 Years smoked: 20 Smoking pack-years: 40.00 Smoking status: Never smoker Tobacco type: cigarettes Second hand tobacco smoke exposure: No Additional smoking assessment comments: 1979 Alcohol intake: never Alcohol use details: One beer daily. Substance use: never Substance use type: does not use Do You Feel Safe in your Home?: Yes Lack of Transportation: No Lack of Food: Never True Current Housing: I Have Housing Concerned About Future Housing: No Difficulty Paying Gas/Electric Bills: No Difficulty Paying for Meds: No Currently Unemployed: No Education: High School Diploma/GED Difficulty w/ Childcare or Family Care: No Living arrangements: alone Additional living arrangements comments: Lives in own home in [place]. Uses a motorized scooter and transfers with slide board. Occupation/Education: retired Additional occupation/education comments: Retired. 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 Spiritual care concerns: No Exam 2 Narrative: EXAMINATION OF ORGAN SYSTEMS/BODY AREAS: Constitutional: Vital signs per nursing GENERAL:[No acute distress, non-toxic appearing.] HEAD: Normal with no signs of head trauma. EYES: EOMI, conjunctiva normal ENT: Hearing grossly intact LUNGS: Nonlabored breathing. HEART: [Regular rate and rhythm], well-perfused right foot with normal DP pulse ABD: [Soft], [nontender to palpation] EXT: Normal range of motion SKIN: Redness from the right lower leg down to the toes, compared to the left; ulcer to the top of the right foot with some slight tenderness. NEURO: [Alert and oriented x 3. No gross focal sensory or strength deficits.] PSYCH: Normal affect Course Vital Signs Vital signs: Vital Signs Temperature 98.5 F 05/13/24 14:05 Pulse Rate 82 05/13/24 14:05 Respiratory Rate 12 05/13/24 14:05 Blood Pressure 122/66 05/13/24 14:05 Pulse Oximetry 98 05/13/24 14:05 Oxygen Delivery Room Air 05/13/24 14:05 Temperature 98.5 F 05/13/24 14:05 Pulse Rate 98 05/13/24 17:17 Respiratory Rate 15 05/13/24 17:17 Blood Pressure 122/68 05/13/24 17:17 Pulse Oximetry 97 05/13/24 17:17 Oxygen Delivery Room Air 05/13/24 14:05 MDM - Skin/Abscess/Foreign Bdy MDM Narrative Medical decision making narrative: Patient with history of right lower extremity cellulitis presents here with concern for infection again. On exam does appear infected with a good amount of redness and some tenderness compared to the left, but with normal range of motion, good perfusion, I have low concern for deep infection. No systemic symptoms, x-ray negative, I did check EMR and noted susceptibilities will start him on fluoroquinolone and vancomycin. EKG obtained here shows AFib with normal rate, left axis deviation, right bundle-branch block, no ST elevations or depressions or signs of acute ischemia. Discussed with hospitalist for admission Lab Data 05/13/24 15:39 05/13/24 15:39 Labs: Lab Results 05/13/24 Range/Units 15:39 WBC 10.6 H (4.5-10.0) K/mm3 RBC 3.40 L (4.6-6.20) M/mm3 Hgb 9.5 L (14.0-18.0) g/dL Hct 32.8 L (42.0-52.0) % MCV 96.5 (80-100) fl MCH 27.9 (26-34) pg MCHC 29.0 L (32-36) g/dl RDW 17.8 H (11.5-14.5) % Plt Count 319 (150-375) k/mm3 MPV 9.8 (7.4-10.4) fl Immature Gran % (Auto) 0.7 H (0-0.5) % Neut % (Auto) 85.4 H (45.5-73.1) % Lymph % (Auto) 4.2 L (18.3-44.2) % Griggs % (Auto) 6.6 (2.6-8.5) % Eos % (Auto) 2.6 (0-4.4) % Baso % (Auto) 0.5 (0.2-1.2) % Lymph # (Auto) 0.44 L (0.9-3.2) K/mm3 Griggs # (Auto) 0.7 H (0.1-0.6) K/mm3 Eos # (Auto) 0.3 (0-0.3) K/mm3 Baso # (Auto) 0.1 (0.0-0.1) K/mm3 Abs Immat Gran (auto) 0.07 H (0.00-0.031) K/mm3 Absolute Neuts (auto) 9.1 H (1.3-6.7) K/mm3 Absolute Nucleated RBC 0.000 (0.0-0.012) K/mm3 Nucleated RBC % 0.0 (0.0-0.2) % Platelet Estimate Adequate (Adequate) Hypochromasia 1+ Anisocytosis 2+ Schistocytes None seen Sodium 132 L (137-145) mmol/L Potassium 4.9 (3.4-5.0) mmol/L Chloride 98 (98-107) mmol/L Carbon Dioxide 26 (22-30) mmol/L Anion Gap 8 (4-12) mmol/L BUN 40 H D (9-20) mg/dL Creatinine 2.33 H (0.7-1.3) mg/dL Estim Creat Clear Calc 41 ml/min Estimated GFR 27 L (59 - ) Glucose 105 (65-110) mg/dL Lactic Acid 1.0 (0.7-2.0) mmol/L Calcium 8.3 L (8.4-10.2) mg/dL Total Bilirubin 0.5 (0.2-1.3) mg/dL AST 14 L (17-59) U/L ALT 8 (6-50) U/L Alkaline Phosphatase 63 (38-126) U/L Total Protein 6.0 L (6.3-8.2) g/dL Albumin 3.5 (3.5-5.1) g/dL Discharge Plan Discharge Clinical Impression: Cellulitis of right foot Patient Disposition: Still a Patient Condition: Stable
[2024-05-13] MEDS: levoFLOXacin 750 MG/D5W 150 ML 750 MG/150 ML BAG 100 MG IVPB (17:05)
[2024-05-13] MEDS: ACETAMINOPHEN 500 MG TABLET 1000 MG PO (17:06)
[2024-05-13] MEDS: VANCOMYCIN 1,500 MG/NS 500 ML 1,500 MG/500 ML BAG 250 MG IVPB (18:14)
--- NOTE | 2024-05-13 21:26 | ADMGEN ---
This patient, Irwin Cyr Jr., was admitted to [facility] Surg Room 311-01. Patient/family oriented to hospital policies and general routines including ID bracelet, bed and alarms, visiting hours, pain management, procedures, bathroom and other care routines, personal items, smoking policy, room service/diet, and visiting hours. Information on how to activate the Rapid Response Team has been discussed. Patient/Family are encouraged to report perceived risks to care and to ask questions if they do not understand what they are told or what they should do.
[2024-05-13] MEDS: HYDROcodone/acetaminophen (*CRX) 10-325 MG TABLET 1 TAB PO (22:30)
[2024-05-14] MEDS: WATER FOR IRRIGATION, STERILE 1,000 ML BOTTLE 1000 ML (03:52)
[2024-05-14 03:59] VITALS: O2SAT 98
[2024-05-14 05:23] VITALS: BP 118/55; PULSE 97; RESP 16; TEMP 37.2; O2SAT 98
[2024-05-14] MEDS: HYDROcodone/acetaminophen (*CRX) 10-325 MG TABLET 1 TAB PO ×3 (06:07→19:55)
[2024-05-14 06:29] LABS: Basophils Absolute Auto 0.1 K/mm3 (0.0-0.1); Basophils Percent Auto 0.6 % (0.2-1.2); Eosinophils Absolute Auto 0.3 K/mm3 (0-0.3); Eosinophils Percent Auto 3.5 % (0-4.4); Hematocrit 31.3 % (42.0-52.0); Immature Granulocyte Absolute 0.08 K/mm3 (0.00-0.031); Lymphocytes Absolute Auto 0.35 K/mm3 (0.9-3.2); Lymphocytes Percent Auto 4.5 % (18.3-44.2); Mean Corpuscular HGB Conc 28.8 g/dl (32-36); Mean Corpuscular Hemoglobin 27.7 pg (26-34); Mean Corpuscular Volume 96.3 fl (80-100); Mean Platelet Volume 9.8 fl (7.4-10.4); Monocytes Absolute Auto 0.7 K/mm3 (0.1-0.6); Monocytes Percent Auto 8.4 % (2.6-8.5); Neutrophils Absolute Auto 6.4 K/mm3 (1.3-6.7); Platelet Count Result 287 k/mm3 (150-375); Red Blood Count 3.25 M/mm3 (4.6-6.20); Red Cell Distribution Width 17.4 % (11.5-14.5); White Blood Count 7.8 K/mm3 (4.5-10.0)
[2024-05-14 06:35] LABS: Estimated CRCL calculation 42 ml/min; Estimated Glomerular Filt Rate 29
[2024-05-14 07:29] LABS: Anion Gap 11 mmol/L (4-12); Blood Urea Nitrogen 43 mg/dL (9-20); Calcium 8.2 mg/dL (8.4-10.2); Carbon Dioxide 21 mmol/L (22-30); Chloride 104 mmol/L (98-107); Estimated CRCL calculation 41 ml/min; Estimated Glomerular Filt Rate 28; Glucose 95 mg/dL (65-110); Magnesium 2.4 mg/dL (1.6-2.3); Sodium 136 mmol/L (137-145)
[2024-05-14 07:31] LABS: Platelet Estimate Adequate (Adequate)
[2024-05-14 07:32] LABS: Anisocytosis 2+; Ovalocytes 1+; Schistocytes None Seen
--- NOTE | 2024-05-14 08:54 | P.HP_ITS ---
H&P: HPI History of Present Illness Date/Time: 05/14/24 08:54 Chief Complaint: right foot infection Narrative: This is a 74-year-old male with significant past medical history peripheral vascular disease, morbid obesity, gout, lymphedema, obstructive sleep apnea, chronic kidney disease, atrial fibrillation, GERD, hypertension, hypothyroidism, dyslipidemia, congestive heart failure, former smoker who presented to the hospital with chronic right foot infection. Patient states he sees the vascular surgeon on 05/20/24. He reports throbbing pain in the right foot with increased redness and swelling. Workup in the hospital included a foot x-ray which showed significant degenerative disease in soft tissue swelling, no acute fracture, no osteomyelitis. Initial labs shown a white blood cell count of 10.6, hemoglobin 9.5, sodium 132, creatinine 2.33, EGFR 27. Blood cultures were obtained and pending. Patient had a wound culture on 03/08/2024 showing Pseudomonas aeruginosa and Staphylococcus aureus on final read. Patient was started on Levaquin and vancomycin while in the ED. Will switch to monotherapy meropenem per Infectious Disease pharmacist recommendation. Review of Systems Review of Systems: All systems reviewed & are unremarkable except as noted in HPI and below PMFSH Past Medical History Medical History Self-care deficit Peripheral vascular disease Morbid obesity with body mass index (BMI) of 40.0 or higher Neuropathic pain Gout Sepsis Chronic acquired lymphedema Chronic anemia Obstructive sleep apnea Chronic kidney disease Atrial fibrillation Lymphedema of both lower extremities Environmental allergies Ocular rosacea Rosacea Chronic low back pain Chronic venous insufficiency GERD without esophagitis Chronic congestive heart failure Echocardiogram in May 2021 was technically difficult and showed normal LV systolic function with an EF of 60 to 65%, severely enlarged RV chamber with moderate to severely reduced RV systolic function, severe biatrial enlargement, and moderate pulmonary hypertension. Dyslipidemia Essential (primary) hypertension Peripheral polyneuropathy Hypothyroidism Surgical History Surgical History History of carpal tunnel release History of thoracic surgery Pericardial effusion s/p pericardial window thought secondary to minoxidil, in 2010 at [facility]. H/O eye surgery (~2005) [id number] [facility] History of foot surgery Left Foot History of cholecystectomy (2008) History of rotator cuff surgery Bilateral. History of discectomy (2012) Family History Family History Father Cardiovascular disease Grandparent Cancer Mother COPD (chronic obstructive pulmonary disease) Social History Social History Social History: Surrogate medical decision maker: Shyla Hurst, daughter. Code status: Full code. Smoking packs per day: 2 Smoking cigarettes per day: 40.0 Years smoked: 20 Smoking pack-years: 40.00 Smoking status: Former smoker Tobacco type: cigarettes Second hand tobacco smoke exposure: No Additional smoking assessment comments: 1979 Alcohol intake: never Alcohol use details: One beer daily. Substance use: never Substance use type: does not use Do You Feel Safe in your Home?: Yes Lack of Transportation: No Lack of Food: Never True Current Housing: I Have Housing Concerned About Future Housing: No Difficulty Paying Gas/Electric Bills: No Difficulty Paying for Meds: No Currently Unemployed: No Education: High School Diploma/GED Difficulty w/ Childcare or Family Care: No Living arrangements: alone Additional living arrangements comments: Lives in own home in [place]. Uses a motorized scooter and transfers with slide board. Occupation/Education: retired Additional occupation/education comments: Retired. 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 Spiritual care concerns: No Meds Home Medications and Allergies Home Medications ?Medication ?Instructions ?Recorded ?Confirmed ?Type loratadine 10 mg tablet (Claritin) 10 mg PO DAILY PRN allergy symptoms 07/12/20 05/13/24 History polyethylene glycol 3350 17 17 g PO DAILY PRN Constipation 06/02/21 05/13/24 History gram/dose oral powder (Miralax) apixaban 5 mg tablet (Eliquis) 5 mg PO Q12HR #180 tabs 01/19/22 05/13/24 Rx metoprolol tartrate 50 mg tablet 50 mg PO Q12HR #180 tabs 01/19/22 05/13/24 Rx acetazolamide 250 mg tablet 250 mg PO DAILY 11/19/22 05/13/24 History fluticasone propionate 50 1 spray intranasal DAILY Congestion 11/19/22 05/13/24 History mcg/actuation nasal spray,suspension (Flonase Allergy Relief) minoxidil 10 mg tablet 10 mg PO DAILY 11/19/22 05/13/24 History lanolin alcohols-mineral 1 applic topical BID #113 grams 03/25/23 05/13/24 Rx oil-w.petrolatum-ceresin topical cream (Minerin Creme topical) spironolactone 25 mg tablet 25 mg PO DAILY #30 tabs 04/06/23 05/13/24 Rx tamsulosin 0.4 mg capsule 0.4 mg PO QAM #90 caps 04/06/23 05/13/24 Rx levothyroxine 200 mcg tablet 200 mcg PO DAILY 08/30/23 05/13/24 History calcitriol 0.25 mcg capsule 0.25 mcg PO 3XW #36 caps 10/30/23 05/13/24 Rx allopurinol 100 mg tablet 100 mg PO DAILY@0800 #30 tabs 12/16/23 05/13/24 Rx acetaminophen 325 mg tablet 500 mg PO Q4H PRN Mild Pain (1-3) 01/15/24 05/13/24 History Or Fever potassium chloride 10 mEq 10 meq PO DAILY #7 caps 03/13/24 05/13/24 Rx capsule,extended release bumetanide 1 mg tablet 1 mg PO TID #90 tabs 05/04/24 05/13/24 Rx docusate sodium 100 mg capsule 100 mg PO Q12H PRN constipation 05/13/24 05/13/24 History famotidine 20 mg tablet 20 mg PO BID 05/14/24 05/14/24 History gabapentin 300 mg capsule 300 mg PO TID #270 caps 05/14/24 05/14/24 Rx Allergies Allergy/AdvReac Type Severity Reaction Status Date / Time oxycodone (From OxyContin) Allergy Mild Nausea Verified 04/13/24 13:53 Sulfa (Sulfonamide Allergy Mild Rash Verified 04/13/24 13:53 Antibiotics) Penicillins Allergy Unknown SWELLING Verified 04/13/24 13:53 codeine AdvReac Mild N/V Verified 04/13/24 13:53 hydrocodone AdvReac Mild N/V Verified 04/13/24 13:53 tramadol AdvReac Mild Nausea Verified 04/13/24 13:53 Vital Signs Vital Signs - 24 hr 05/13/24 14:05 05/13/24 14:31 05/13/24 16:02 Temperature 98.5 F Pulse Rate 82 91 80 Respiratory Rate 12 18 20 Blood Pressure 122/66 120/73 123/57 L Pulse Oximetry 98 95 97 Oxygen Delivery Room Air Oxygen Flow Rate 05/13/24 16:31 05/13/24 16:46 05/13/24 17:01 Temperature Pulse Rate 87 83 95 Respiratory Rate 15 14 Blood Pressure 118/67 137/71 130/70 Pulse Oximetry 99 98 99 Oxygen Delivery Oxygen Flow Rate 05/13/24 17:17 05/13/24 17:46 05/13/24 18:02 Temperature Pulse Rate 98 89 87 Respiratory Rate 15 19 15 Blood Pressure 122/68 133/69 109/61 Pulse Oximetry 97 99 96 Oxygen Delivery Oxygen Flow Rate 05/13/24 18:16 05/13/24 19:13 05/13/24 19:14 Temperature 97.7 F Pulse Rate 91 104 H 93 Respiratory Rate 16 21 H Blood Pressure 131/60 137/63 Pulse Oximetry 98 98 Oxygen Delivery Oxygen Flow Rate 05/13/24 21:18 05/14/24 03:59 05/14/24 05:23 Temperature 97.1 F L 98.9 F Pulse Rate 105 H 97 Respiratory Rate 17 16 Blood Pressure 122/66 118/55 L Pulse Oximetry 100 98 98 Oxygen Delivery CPAP Oxygen Flow Rate 4 Exam Narrative: General: In no acute distress, well nourished Head: atraumatic, no encephalopathy Eyes: PERRLA, sclera clear ENT: moist mucous membranes, nasal passages clear Neck: supple, no JVD, no adenopathy, trachea midline Cardiac: Normal S1 and S2. No murmur, gallops or friction rubs, peripheral pulses intact. Respiratory: Lungs clear to auscultation, no adventitious lung sounds, currently on room air Gastrointestinal: soft, non-distended, non-tender, normoactive bowel sounds. : voiding without difficulty. Extremities: moves all extremities well, lymphedema bilateral lower extremities Skin: Right foot swelling with redness and warmth. Multiple open areas with eschar present. Neuro: Alert and oriented x4, cranial nerves intact, no neuro deficits. Psych: normal mood, normal affect, interactive H&P: Results Labs Labs: Short CBC 05/13/24 05/14/24 Range/Units 15:39 05:32 WBC 10.6 H 7.8 (4.5-10.0) K/mm3 Hgb 9.5 L 9.0 L (14.0-18.0) g/dL Hct 32.8 L 31.3 L (42.0-52.0) % Plt Count 319 287 (150-375) k/mm3 BMP 05/13/24 05/14/24 05/14/24 15:39 05:32 05:32 Sodium 132 L 136 L Potassium 4.9 5.0 Chloride 98 104 Carbon Dioxide 26 21 L BUN 40 H D 43 H Creatinine 2.33 H 2.21 H 2.26 H Glucose 105 95 Calcium 8.3 L 8.2 L Liver Function 05/13/24 Range/Units 15:39 Total Bilirubin 0.5 (0.2-1.3) mg/dL AST 14 L (17-59) U/L ALT 8 (6-50) U/L Alkaline Phosphatase 63 (38-126) U/L Albumin 3.5 (3.5-5.1) g/dL Imaging Right foot x-ray: Radiologist's impression: HISTORY: foot infxn COMPARISON: Reference is made to a contrast-enhanced MRI examination dated 03/06/2024 TECHNIQUE: 3 views of the right foot were performed FINDINGS: No acute fracture or dislocation is appreciated. Significant degenerative disease is noted. Diffuse bony demineralization is present. Periarticular osteopenia is also noted along with increased cortical thickness within the metatarsals, 2 through 5. Significant soft tissue swelling is noted along the dorsum of the forefoot. Soft tissue defect along the lateral margin of the forefoot. Ossification of the insertion of the Achilles tendon is present. Large calcaneal spur is noted. Vascular calcifications are also present. IMPRESSION: Significant degenerative disease and soft tissue swelling. No acute fracture. No cortical erosions are present. Reviewed, dictated and finalized at location A. [place] [facility] Assessment and Plan Assessment and plan (1) Cellulitis of right foot: Code(s): L03.115 - Cellulitis of right lower limb Status: Acute Assessment and Plan: * right foot x-ray showed significant degenerative disease and soft tissue swelling, no acute fracture, no cortical erosions are present. * Patient was given Levaquin and vancomycin while in the ED * We will switch to monotherapy with meropenem per Infectious Disease pharmacist recommendation * Wound nurse consulted * Patient has appointment with Vascular surgeon on 05/20/24 (2) Gout: Qualifiers: Chronicity: chronic Gout etiology: unspecified cause Gout site: multiple sites Qualified Code(s): M1A.09X0 - Idiopathic chronic gout, multiple sites, without tophus (tophi) Code(s): M10.9 - Gout, unspecified Status: Acute Assessment and Plan: * Continue allopurinol (3) Stage 3b chronic kidney disease: Code(s): N18.32 - Chronic kidney disease, stage 3b Status: Acute Assessment and Plan: * Creatinine 2.26, EGFR 28 * Patient is at baseline kidney function * Avoid nephrotoxic medication and testing with IV contrast (4) Hypothyroidism: Qualifiers: Hypothyroidism type: acquired Qualified Code(s): E03.9 - Hypothyroidism, unspecified Code(s): E03.9 - Hypothyroidism, unspecified Status: Acute Assessment and Plan: * Continue Synthroid (5) CHF (congestive heart failure): Code(s): I50.9 - Heart failure, unspecified Status: Acute Assessment and Plan: * Continue Bumex, metoprolol, spironolactone (6) Atrial fibrillation: Qualifiers: Atrial fibrillation type: longstanding persistent Qualified Code(s): I48.11 - Longstanding persistent atrial fibrillation Code(s): I48.91 - Unspecified atrial fibrillation Status: Chronic Assessment and Plan: * Continue Eliquis and metoprolol (7) AMELIA (obstructive sleep apnea): Code(s): G47.33 - Obstructive sleep apnea (adult) (pediatric) Status: Acute Assessment and Plan: * CPAP ordered (8) BPH (benign prostatic hyperplasia): Code(s): N40.0 - Benign prostatic hyperplasia without lower urinary tract symptoms Status: Chronic Assessment and Plan: * Continue Flomax Quality VTE Prophylaxis VTE prophylaxis: pharmacologic ordered Hospitalist MIPS Advance Care Plan I have confirmed that the patient's Advanced Care Plan is present, code status is documented, or surrogate decision maker is listed in patient medical record.: Yes Medication Reconciliation I have utilized all available resources to obtain, update and review the patients current medications (includes all prescriptions, OTC, herbals, cannabis, and nutritional supplements).: Yes
[2024-05-14 09:52] LABS: Erythrocyte Sedimentation Rate 103 mm/hr (0-20)
[2024-05-14] MEDS: LEVOTHYROXINE SODIUM 100 MCG TABLET 200 MCG PO (09:59)
[2024-05-14] MEDS: METOPROLOL TARTRATE 50 MG TAB PO ×2 (10:00→19:54)
[2024-05-14] MEDS: BUMETANIDE 1 MG TABLET PO ×3 (10:00→16:57)
[2024-05-14] MEDS: allopurinoL 100 MG TABLET PO (10:00)
[2024-05-14] MEDS: TAMSULOSIN HCL 0.4 MG CAPSULE PO (10:00)
[2024-05-14] MEDS: MEROPENEM 1 GM/NS 100 ML 1 GM/100 ML BAG IVPB ×2 (10:00→19:55)
[2024-05-14] MEDS: SPIRONOLACTONE 25 MG TABLET PO (10:00)
[2024-05-14] MEDS: APIXABAN 5 MG TABLET PO ×2 (10:00→19:55)
[2024-05-14] MEDS: acetaZOLAMIDE TAB 250 MG TABLET PO (10:01)
[2024-05-14] MEDS: minoxidiL 10 MG TABLET PO (10:01)
[2024-05-14 10:05] LABS: CRP 5.5 mg/dL (<1.0)
[2024-05-14 16:00] VITALS: BP 118/55; PULSE 72; RESP 20; TEMP 36.2; O2SAT 100
[2024-05-14] MEDS: FAMOTIDINE 20 MG TABLET PO (16:57)
[2024-05-14] MEDS: GABAPENTIN 300 MG CAPSULE PO (16:58)
[2024-05-14 19:54] VITALS: PULSE 72
[2024-05-14 20:15] VITALS: BP 123/53; PULSE 89; RESP 18; TEMP 36.8; O2SAT 100
[2024-05-15] MEDS: LEVOTHYROXINE SODIUM 100 MCG TABLET 200 MCG PO (06:19)
[2024-05-15 06:29] LABS: Basophils Absolute Auto 0.1 K/mm3 (0.0-0.1); Basophils Percent Auto 0.6 % (0.2-1.2); Eosinophils Absolute Auto 0.3 K/mm3 (0-0.3); Eosinophils Percent Auto 3.1 % (0-4.4); Hematocrit 32.2 % (42.0-52.0); Hemoglobin 9.3 g/dL (14.0-18.0); Immature Granulocyte Percent A 1.1 % (0-0.5); Lymphocytes Absolute Auto 0.41 K/mm3 (0.9-3.2); Lymphocytes Percent Auto 4.4 % (18.3-44.2); Mean Corpuscular HGB Conc 28.9 g/dl (32-36); Mean Corpuscular Hemoglobin 28.2 pg (26-34); Mean Corpuscular Volume 97.6 fl (80-100); Mean Platelet Volume 9.7 fl (7.4-10.4); Monocytes Absolute Auto 0.8 K/mm3 (0.1-0.6); Monocytes Percent Auto 8.5 % (2.6-8.5); Neutrophils Absolute Auto 7.8 K/mm3 (1.3-6.7); Neutrophils Percent Auto 82.3 % (45.5-73.1); Nucleated Red Blood Cells Perc 0.2 % (0.0-0.2); Platelet Count Result 298 k/mm3 (150-375); Red Cell Distribution Width 17.6 % (11.5-14.5); White Blood Count 9.4 K/mm3 (4.5-10.0)
[2024-05-15 06:35] LABS: Alanine Aminotransferase 7 U/L (6-50); Albumin Level 3.2 g/dL (3.5-5.1); Alkaline Phosphatase 57 U/L (38-126); Anion Gap 8 mmol/L (4-12); Aspartate Amino Transferase 12 U/L (17-59); Bilirubin,Total 0.6 mg/dL (0.2-1.3); Blood Urea Nitrogen 39 mg/dL (9-20); CRP 4.9 mg/dL (<1.0); Calcium 8.3 mg/dL (8.4-10.2); Carbon Dioxide 25 mmol/L (22-30); Chloride 101 mmol/L (98-107); Estimated CRCL calculation 42 ml/min; Estimated Glomerular Filt Rate 29; Glucose 96 mg/dL (65-110); Potassium 4.6 mmol/L (3.4-5.0); Sodium 134 mmol/L (137-145)
[2024-05-15 07:01] VITALS: BP 108/48; PULSE 78; RESP 20; TEMP 35.8; O2SAT 99
[2024-05-15 07:18] LABS: Anisocytosis 1+; Hypochromasia 1+; Platelet Estimate Adequate (Adequate); Schistocytes None Seen
[2024-05-15 07:20] LABS: Erythrocyte Sedimentation Rate 118 mm/hr (0-20)
[2024-05-15] MEDS: HYDROcodone/acetaminophen (*CRX) 10-325 MG TABLET 1 TAB PO ×3 (08:31→16:21)
[2024-05-15 08:32] VITALS: PULSE 84
[2024-05-15] MEDS: acetaZOLAMIDE TAB 250 MG TABLET PO (08:32)
[2024-05-15] MEDS: minoxidiL 10 MG TABLET PO (08:32)
[2024-05-15] MEDS: SPIRONOLACTONE 25 MG TABLET PO (08:32)
[2024-05-15] MEDS: BUMETANIDE 1 MG TABLET PO ×3 (08:32→16:21)
[2024-05-15] MEDS: calcitrioL 0.25 MCG CAPSULE PO (08:32)
[2024-05-15] MEDS: METOPROLOL TARTRATE 50 MG TAB PO ×2 (08:32→21:20)
[2024-05-15] MEDS: TAMSULOSIN HCL 0.4 MG CAPSULE PO (08:33)
[2024-05-15] MEDS: MEROPENEM 1 GM/NS 100 ML 1 GM/100 ML BAG IVPB (08:33)
[2024-05-15] MEDS: allopurinoL 100 MG TABLET PO (08:33)
[2024-05-15] MEDS: FLUTICASONE PROPIONATE 0.05% NA SPR 16 GM BTL (*BKC) 1 SPRAY NASAL (08:33)
[2024-05-15] MEDS: GABAPENTIN 300 MG CAPSULE PO ×3 (08:33→16:21)
[2024-05-15] MEDS: FAMOTIDINE 20 MG TABLET PO ×2 (08:33→16:21)
[2024-05-15] MEDS: APIXABAN 5 MG TABLET PO ×2 (08:33→21:20)
--- NOTE | 2024-05-15 11:30 | PCOTNOTE ---
Attempted to see pt for OT evaluation and though pt was in pain and just finished a dressing change on R foot, pt said he was willing to attempt a commode transfer. Spent time to get commode and all PLOF info from pt and then pt declines attempting to move due to pain. Will continue to follow for OT evaluation.
--- NOTE | 2024-05-15 13:36 | PCPTNOTE ---
attempted PT evaluation 1330; pt refused due to increase R foot pain.
--- NOTE | 2024-05-15 13:37 | PCOTNOTE ---
2 attempts at OT eval today however both times pt reports too much pain in foot and declines to participate.
--- NOTE | 2024-05-15 14:00 | P.PNIM_ITS ---
Progress Note: A&P Assessment and Plan (1) Cellulitis of right foot: Code(s): L03.115 - Cellulitis of right lower limb Status: Acute Assessment and Plan: * right foot x-ray showed significant degenerative disease and soft tissue swelling, no acute fracture, no cortical erosions are present. * Patient was given Levaquin and vancomycin while in the ED * switch to monotherapy with meropenem per Infectious Disease pharmacist recommendation. Restart levaquin and add zyvox per discussion with ID pharmacist. if improving, could continue current meds. If not improving consider placing PICC line and discharging with IV antibiotics * Wound nurse consulted * Patient has appointment with Vascular surgeon on 05/20/24, goal is to discharge for appointment since wound healing may require revascularization to prevent recurrence * Recently had an MRI in March without osteo, so did not reimage at this time (2) Gout: Qualifiers: Chronicity: chronic Gout etiology: unspecified cause Gout site: multiple sites Qualified Code(s): M1A.09X0 - Idiopathic chronic gout, multiple sites, without tophus (tophi) Code(s): M10.9 - Gout, unspecified Status: Acute Assessment and Plan: * Continue allopurinol (3) Stage 3b chronic kidney disease: Code(s): N18.32 - Chronic kidney disease, stage 3b Status: Acute Assessment and Plan: * Creatinine 2.26, EGFR 28 * Patient is at baseline kidney function * Avoid nephrotoxic medication and testing with IV contrast (4) Hypothyroidism: Qualifiers: Hypothyroidism type: acquired Qualified Code(s): E03.9 - Hypothyroidism, unspecified Code(s): E03.9 - Hypothyroidism, unspecified Status: Acute Assessment and Plan: * Continue Synthroid (5) CHF (congestive heart failure): Code(s): I50.9 - Heart failure, unspecified Status: Acute Assessment and Plan: * Continue Bumex, metoprolol, spironolactone (6) Atrial fibrillation: Qualifiers: Atrial fibrillation type: longstanding persistent Qualified Code(s): I48.11 - Longstanding persistent atrial fibrillation Code(s): I48.91 - Unspecified atrial fibrillation Status: Chronic Assessment and Plan: * Continue Eliquis and metoprolol (7) AMELIA (obstructive sleep apnea): Code(s): G47.33 - Obstructive sleep apnea (adult) (pediatric) Status: Acute Assessment and Plan: * CPAP ordered (8) BPH (benign prostatic hyperplasia): Code(s): N40.0 - Benign prostatic hyperplasia without lower urinary tract symptoms Status: Chronic Assessment and Plan: * Continue Flomax Time Spent With Patient Time: 59 minutes Subjective Date/time seen: 05/15/24 14:00 Interval history: Right foot pain is main complaint. Dressing changed and swelling to entire foot but scant purulence, but large open areas. Swab sent. On meropenem, switched to levaquin and zyvox per discussion with ID pharmacist Review of Systems Review of Systems: All systems reviewed & are unremarkable except as noted in HPI and below Exam Narrative: General: In no acute distress, well nourished Head: atraumatic, no encephalopathy Eyes: PERRLA, sclera clear ENT: moist mucous membranes, nasal passages clear Neck: supple, no JVD, no adenopathy, trachea midline Cardiac: Normal S1 and S2. No murmur, gallops or friction rubs, peripheral pulses intact. Respiratory: Lungs clear to auscultation, no adventitious lung sounds, currently on room air Gastrointestinal: soft, non-distended, non-tender, normoactive bowel sounds. : voiding without difficulty. Extremities: moves all extremities well, lymphedema bilateral lower extremities Skin: Right foot swelling with redness and warmth. Multiple open areas with eschar present, scant purulence Neuro: Alert and oriented x4, cranial nerves intact, no neuro deficits. Psych: normal mood, normal affect, interactive Objective Data Vital Signs Vital Signs: Vital Signs - 24 hr 05/14/24 16:00 05/14/24 19:54 05/14/24 20:00 Temperature 97.1 F L Pulse Rate 72 72 Respiratory Rate 20 Blood Pressure 118/55 L Pulse Oximetry 100 Oxygen Delivery Room Air 05/14/24 20:15 05/15/24 07:01 05/15/24 08:00 Temperature 98.3 F 96.5 F L Pulse Rate 89 78 Respiratory Rate 18 20 Blood Pressure 123/53 L 108/48 L Pulse Oximetry 100 99 Oxygen Delivery Room Air 05/15/24 08:32 Temperature Pulse Rate 84 Respiratory Rate Blood Pressure Pulse Oximetry Oxygen Delivery Intake/Output Intake/Output: Intake & Output 05/12/24 05/13/24 05/14/24 05/15/24 23:59 23:59 23:59 23:59 Intake Total 900 1510 490 Output Total 1500 600 Balance 900 10 -110 Meds/Results Medications: Active Medications Generic Name Dose Route Start Last Admin Trade Name Freq PRN Reason Stop Dose Admin Acetaminophen 650 mg 05/14/24 09:12 Acetaminophen 325 Mg Tablet PO Q4H PRN Mild Pain (1-3) or Fever Hydrocodone Bitart/Acetaminophen 1 tab 05/13/24 22:15 05/15/24 12:09 Hydrocodone/Acetaminophen (*Crx) 10-325 Mg Tablet PO 1 tab Q4H PRN Administration Pain Rated 7-10 Hydrocodone Bitart/Acetaminophen 1 tab 05/14/24 09:12 Hydrocodone/Acetaminophen (*Crx) 5-325 Mg Tablet PO Q4H PRN Moderate Pain (4-6) Acetazolamide 250 mg 05/14/24 09:00 05/15/24 08:32 Acetazolamide Tab 250 Mg Tablet PO 250 mg DAILY ANGELA Administration Allopurinol 100 mg 05/14/24 09:40 05/15/24 08:33 Allopurinol 100 Mg Tablet PO 100 mg DAILY@0800 ANGELA Administration Apixaban 5 mg 05/14/24 09:40 05/15/24 08:33 Apixaban 5 Mg Tablet PO 5 mg Q12HR ANGELA Administration Bumetanide 1 mg 05/14/24 09:40 05/15/24 12:09 Bumetanide 1 Mg Tablet PO 1 mg TID ANGELA Administration Calcitriol 0.25 mcg 05/15/24 09:00 05/15/24 08:32 Calcitriol 0.25 Mcg Capsule PO 0.25 mcg MoWeFr@0900 ANGELA Administration Docusate Sodium 100 mg 05/14/24 09:17 Docusate Sodium 100 Mg Capsule PO Q12H PRN constipation Famotidine 20 mg 05/14/24 17:00 05/15/24 08:33 Famotidine 20 Mg Tablet PO 20 mg BID ANGELA Administration Fluticasone Propionate 1 spray 05/14/24 09:40 05/15/24 08:33 Fluticasone Propionate 0.05% Na Spr 16 Gm Btl (*Bkc) NASAL 1 spray DAILY ANGELA Administration Gabapentin 300 mg 05/14/24 17:00 05/15/24 12:09 Gabapentin 300 Mg Capsule PO 300 mg TID ANGELA Administration Meropenem 1 gm in 100 mls @ 200 mls/hr 05/14/24 09:30 05/15/24 08:33 IVPB 200 mls/hr Q12HR ANGELA Administration Levothyroxine Sodium 200 mcg 05/14/24 09:40 05/15/24 06:19 Levothyroxine Sodium 100 Mcg Tablet PO 200 mcg DAILY@0630 ANGELA Administration Loratadine 10 mg 05/14/24 09:17 Loratadine 10 Mg Tablet PO DAILY PRN allergy symptoms Metoprolol Tartrate 50 mg 05/14/24 09:40 05/15/24 08:32 Metoprolol Tartrate 50 Mg Tab PO 50 mg Q12HR ANGELA Administration Minoxidil 10 mg 05/14/24 09:40 05/15/24 08:32 Minoxidil 10 Mg Tablet PO 10 mg DAILY ANGELA Administration Morphine Sulfate 4 mg 05/13/24 22:16 Morphine Sulfate (*Crx) 4 Mg/Ml Inj IV PUSH Q4H PRN Pain Ondansetron HCl 4 mg 05/14/24 09:12 Ondansetron Inj 4 Mg/2 Ml Vial IV PUSH Q6H PRN Nausea And Vomiting Polyethylene Glycol 17 gm 05/14/24 09:17 Polyethylene Glycol 3350 17 Gm Powd.Pack PO DAILY PRN Constipation Spironolactone 25 mg 05/14/24 09:40 05/15/24 08:32 Spironolactone 25 Mg Tablet PO 25 mg DAILY ANGELA Administration Tamsulosin HCl 0.4 mg 05/14/24 09:40 05/15/24 08:33 Tamsulosin Hcl 0.4 Mg Capsule PO 0.4 mg QAM ANGELA Administration Radiology Results: ITS Impressions Foot X-Ray 05/13/24 17:27 IMPRESSION: Significant degenerative disease and soft tissue swelling. No acute fracture. No cortical erosions are present. Labs Labs: Laboratory Results - last 24 hr 05/15/24 05:58 WBC 9.4 RBC 3.30 L Hgb 9.3 L Hct 32.2 L MCV 97.6 MCH 28.2 MCHC 28.9 L RDW 17.6 H Plt Count 298 MPV 9.7 Immature Gran % (Auto) 1.1 H Neut % (Auto) 82.3 H Lymph % (Auto) 4.4 L [place] % (Auto) 8.5 Eos % (Auto) 3.1 Baso % (Auto) 0.6 Lymph # (Auto) 0.41 L [place] # (Auto) 0.8 H Eos # (Auto) 0.3 Baso # (Auto) 0.1 Abs Immat Gran (auto) 0.10 H Absolute Neuts (auto) 7.8 H Absolute Nucleated RBC 0.020 H Nucleated RBC % 0.2 Platelet Estimate Adequate Hypochromasia 1+ Anisocytosis 1+ Schistocytes None seen ESR 118 H Sodium 134 L Potassium 4.6 Chloride 101 Carbon Dioxide 25 Anion Gap 8 BUN 39 H Creatinine 2.22 H Estim Creat Clear Calc 42 Estimated GFR 29 L Glucose 96 Calcium 8.3 L Total Bilirubin 0.6 AST 12 L ALT 7 Alkaline Phosphatase 57 C-Reactive Protein 4.9 H Total Protein 6.0 L Albumin 3.2 L Quality VTE Prophylaxis VTE prophylaxis: pharmacologic ordered Hospitalist MIPS Advance Care Plan I have confirmed that the patient's Advanced Care Plan is present, code status is documented, or surrogate decision maker is listed in patient medical record.: Yes Medication Reconciliation I have utilized all available resources to obtain, update and review the patients current medications (includes all prescriptions, OTC, herbals, cannabis, and nutritional supplements).: Yes
[2024-05-15 16:00] VITALS: BP 112/57; PULSE 88; RESP 20; TEMP 36.4; O2SAT 97
[2024-05-15 20:00] VITALS: O2SAT 99
[2024-05-15 21:20] VITALS: PULSE 88
[2024-05-15] MEDS: LINEZOLID 600 MG TABLET PO (21:20)
[2024-05-15] MEDS: levoFLOXacin 750 MG TABLET PO (21:20)
[2024-05-15] MEDS: ONDANSETRON INJ 4 MG/2 ML VIAL IV PUSH (21:24)
[2024-05-15 21:39] VITALS: BP 129/58; PULSE 90; RESP 18; TEMP 36.3; O2SAT 99
[2024-05-16 06:00] VITALS: BP 128/59; PULSE 87; RESP 18; TEMP 36.2; O2SAT 98
[2024-05-16] MEDS: LEVOTHYROXINE SODIUM 100 MCG TABLET 200 MCG PO (06:01)
[2024-05-16 07:35] LABS: Basophils Absolute Auto 0.1 K/mm3 (0.0-0.1); Basophils Percent Auto 0.7 % (0.2-1.2); Eosinophils Absolute Auto 0.3 K/mm3 (0-0.3); Eosinophils Percent Auto 3.2 % (0-4.4); Hemoglobin 9.5 g/dL (14.0-18.0); Immature Granulocyte Percent A 1.1 % (0-0.5); Lymphocytes Absolute Auto 0.39 K/mm3 (0.9-3.2); Lymphocytes Percent Auto 4.5 % (18.3-44.2); Mean Corpuscular HGB Conc 28.8 g/dl (32-36); Mean Corpuscular Hemoglobin 27.9 pg (26-34); Mean Corpuscular Volume 96.8 fl (80-100); Mean Platelet Volume 9.5 fl (7.4-10.4); Monocytes Absolute Auto 0.7 K/mm3 (0.1-0.6); Monocytes Percent Auto 8.3 % (2.6-8.5); Neutrophils Absolute Auto 7.2 K/mm3 (1.3-6.7); Neutrophils Percent Auto 82.2 % (45.5-73.1); Nucleated Red Blood Cells Perc 0.3 % (0.0-0.2); Platelet Count Result 314 k/mm3 (150-375); Red Blood Count 3.41 M/mm3 (4.6-6.20); Red Cell Distribution Width 17.5 % (11.5-14.5); White Blood Count 8.7 K/mm3 (4.5-10.0)
[2024-05-16 07:55] LABS: Alanine Aminotransferase 7 U/L (6-50); Albumin Level 3.4 g/dL (3.5-5.1); Alkaline Phosphatase 58 U/L (38-126); Anion Gap 8 mmol/L (4-12); Aspartate Amino Transferase 14 U/L (17-59); Bilirubin,Total 0.5 mg/dL (0.2-1.3); Blood Urea Nitrogen 41 mg/dL (9-20); CRP 4.1 mg/dL (<1.0); Calcium 8.5 mg/dL (8.4-10.2); Carbon Dioxide 26 mmol/L (22-30); Chloride 99 mmol/L (98-107); Estimated CRCL calculation 41 ml/min; Estimated Glomerular Filt Rate 28; Glucose 105 mg/dL (65-110); Potassium 4.9 mmol/L (3.4-5.0); Sodium 133 mmol/L (137-145)
[2024-05-16 08:05] LABS: Anisocytosis 1+; Hypochromasia 1+; Ovalocytes 1+; Platelet Estimate Adequate (Adequate); Schistocytes None Seen
[2024-05-16] MEDS: FLUTICASONE PROPIONATE 0.05% NA SPR 16 GM BTL (*BKC) 1 SPRAY NASAL (08:47)
[2024-05-16 08:48] VITALS: PULSE 88
[2024-05-16] MEDS: SPIRONOLACTONE 25 MG TABLET PO (08:48)
[2024-05-16] MEDS: minoxidiL 10 MG TABLET PO (08:48)
[2024-05-16] MEDS: TAMSULOSIN HCL 0.4 MG CAPSULE PO (08:48)
[2024-05-16] MEDS: HYDROcodone/acetaminophen (*CRX) 10-325 MG TABLET 1 TAB PO ×3 (08:48→17:53)
[2024-05-16] MEDS: APIXABAN 5 MG TABLET PO ×2 (08:48→20:41)
[2024-05-16] MEDS: acetaZOLAMIDE TAB 250 MG TABLET PO (08:48)
[2024-05-16] MEDS: LINEZOLID 600 MG TABLET PO ×2 (08:48→20:41)
[2024-05-16] MEDS: allopurinoL 100 MG TABLET PO (08:48)
[2024-05-16] MEDS: GABAPENTIN 300 MG CAPSULE PO ×3 (08:48→17:51)
[2024-05-16] MEDS: METOPROLOL TARTRATE 50 MG TAB PO ×2 (08:48→20:41)
[2024-05-16] MEDS: FAMOTIDINE 20 MG TABLET PO ×2 (08:48→17:53)
[2024-05-16] MEDS: BUMETANIDE 1 MG TABLET PO ×3 (08:48→17:53)
[2024-05-16] MEDS: ONDANSETRON INJ 4 MG/2 ML VIAL IV PUSH (08:50)
[2024-05-16 09:43] LABS: Erythrocyte Sedimentation Rate 56 mm/hr (0-20)
--- NOTE | 2024-05-16 10:16 | PCPTNOTE ---
attempted PT eval, pt refused d/t foot pain, pt has been educated on the importance of participating in therapy if he plans to go home from the hospital, pt has also been educated on bed sores and losing strength as he lays in bed all day, pt stated he will try his best tomorrow to get out of bed, will follow
--- NOTE | 2024-05-16 12:27 | P.PNIM_ITS ---
Progress Note: A&P Assessment and Plan (1) Cellulitis of right foot: Code(s): L03.115 - Cellulitis of right lower limb Status: Acute Assessment and Plan: right foot x-ray showed significant degenerative disease and soft tissue swelling, no acute fracture, no cortical erosions are present. * Patient was given Levaquin and vancomycin while in the ED * switch to monotherapy with meropenem per Infectious Disease pharmacist recommendation. Restart levaquin and add zyvox per discussion with ID pharmacist. if improving, could continue current meds. If not improving consider placing PICC line and discharging with IV antibiotics would be appropriate. * Wound nurse consulted * pending wound culture - preliminary many WBC--moderate Gram positive Bacilli * Patient has appointment with Vascular surgeon on 05/20/24, goal is to discharge for appointment since wound healing may require revascularization to prevent recurrence * Recently had an MRI in March without osteo, so did not reimage at this time * trending ESR --> 103 --118--56 * trending CRP --> 5.5--4.9--4.1 * trend WBC - 7.8--9.4--8.7 (2) Gout: Qualifiers: Chronicity: chronic Gout etiology: unspecified cause Gout site: multiple sites Qualified Code(s): M1A.09X0 - Idiopathic chronic gout, multiple sites, without tophus (tophi) Code(s): M10.9 - Gout, unspecified Status: Acute Assessment and Plan: Continue allopurinol (3) Stage 3b chronic kidney disease: Code(s): N18.32 - Chronic kidney disease, stage 3b Status: Acute Assessment and Plan: Creatinine 2.26, EGFR 28 * Patient is at baseline kidney function * Avoid nephrotoxic medication and testing with IV contrast (4) Hypothyroidism: Qualifiers: Hypothyroidism type: acquired Qualified Code(s): E03.9 - Hypothyroidism, unspecified Code(s): E03.9 - Hypothyroidism, unspecified Status: Acute Assessment and Plan: continue synthroid (5) Chronic congestive heart failure: Qualifiers: Heart failure type: combined systolic and diastolic Qualified Code(s): I50.42 - Chronic combined systolic (congestive) and diastolic (congestive) heart failure Code(s): I50.9 - Heart failure, unspecified Status: Chronic Assessment and Plan: * Continue Bumex, metoprolol, spironolactone (6) Chronic venous insufficiency: Code(s): I87.2 - Venous insufficiency (chronic) (peripheral) Status: Acute Assessment and Plan: * follow up with vascular surgeon 05/20/24 *continue with apixaban 5 mg bid (7) Atrial fibrillation: Qualifiers: Atrial fibrillation type: longstanding persistent Qualified Code(s): I48.11 - Longstanding persistent atrial fibrillation Code(s): I48.91 - Unspecified atrial fibrillation Status: Chronic Assessment and Plan: Continue Eliquis and metoprolol (8) Obstructive sleep apnea: Code(s): G47.33 - Obstructive sleep apnea (adult) (pediatric) Status: Chronic Assessment and Plan: - Cpap per home settings while sleeping. (9) BPH (benign prostatic hyperplasia): Code(s): N40.0 - Benign prostatic hyperplasia without lower urinary tract symptoms Status: Chronic Assessment and Plan: - continue flomax Plan DVT: Eliquis Code status: Full Code - Goal is to discharge home with follow up outpatient with wound care and Vascular Surgery. Will continue ATB pending culture results. Time Spent With Patient Time with patient: Greater than 35 minutes (55 minutes) Subjective Date/time seen: 05/16/24 12:27 Interval history: Today patient reports his right foot pain is remains his complaint. Right foot wound dressing changed and swelling to entire foot again is noted. Scant purulence, but dressing was saturated with serous drainage that soaked into bedding. Right foot noted large open areas. Wound culture is still pending, preliminary noted many WBC, Gram positive bacilli. Initally patient was started on monotherapy with meropenem, however 05/15/24 patient was switched to levaquin and zyvox per discussion with ID pharmacist. Patient reports no chest pain, shortness of breath, headache or distress. He reports nausea with pain medication. He is using his CPAP while sleeping. ESR and CRP improving. Review of Systems Review of Systems: All systems reviewed & are unremarkable except as noted in HPI and below Exam Const: General: cooperative, no acute distress, alert and awake HENMT: Head: normal to inspection and normocephalic Eyes: General: appearance normal, both eyes and all related structures Visual Wolf: normal visual wolf by confrontation Neck: Neck: normal visual inspection, full ROM and no lymphadenopathy Chest: Chest palpation & inspection: normal inspection of the chest Resp: Effort & Inspection: normal respiratory effort and able to speak in complete sentences Auscultation: clear to auscultation bilaterally Cardio: Jugular venous distension: no JVD Palpation: normal PMI Rate: regular rate Rhythm: regular rhythm Heart sounds: S1 normal heart sound present and S2 normal heart sound present GI: Inspection: normal to inspection GI Palp: Yes Soft to palpation and Yes No hepatosplenomegaly present Auscultation: normal bowel sounds Skin: General skin exam: normal color Wounds: wounds noted right foot malodorous, with surrounding erythema and other (dressing notes serous drainage. ) Neuro: General: oriented to person, oriented to place, oriented to time, tone normal and moves all extremities Extrem: General: normal to inspection and full ROM Right lower extremity: foot Details: abnormal to inspection (wound noted with drainage), edema Location: diffusely and vascular exam Details: dorsalis pedis pulse present Psych: Appearance: grossly normal Mental Status: mental status grossly normal Objective Data Vital Signs Vital Signs: Vital Signs - 24 hr 05/15/24 16:00 05/15/24 20:00 05/15/24 21:20 Temperature 97.6 F Pulse Rate 88 88 Respiratory Rate 20 Blood Pressure 112/57 L Pulse Oximetry 97 99 Oxygen Delivery CPAP Oxygen Flow Rate 4 05/15/24 21:39 05/16/24 06:00 05/16/24 08:40 Temperature 97.4 F L 97.2 F L Pulse Rate 90 87 Respiratory Rate 18 18 Blood Pressure 129/58 L 128/59 L Pulse Oximetry 99 98 Oxygen Delivery Room Air Oxygen Flow Rate 05/16/24 08:48 Temperature Pulse Rate 88 Respiratory Rate Blood Pressure Pulse Oximetry Oxygen Delivery Oxygen Flow Rate Intake/Output Intake/Output: Intake & Output 05/13/24 05/14/24 05/15/24 05/16/24 23:59 23:59 23:59 23:59 Intake Total 900 1510 1070 300 Output Total 1500 1050 675 Balance 900 10 20 -375 Meds/Results Medications: Active Medications Generic Name Dose Route Start Last Admin Trade Name Freq PRN Reason Stop Dose Admin Acetaminophen 650 mg 05/14/24 09:12 Acetaminophen 325 Mg Tablet PO Q4H PRN Mild Pain (1-3) or Fever Hydrocodone Bitart/Acetaminophen 1 tab 05/13/24 22:15 05/16/24 08:48 Hydrocodone/Acetaminophen (*Crx) 10-325 Mg Tablet PO 1 tab Q4H PRN Administration Pain Rated 7-10 Hydrocodone Bitart/Acetaminophen 1 tab 05/14/24 09:12 Hydrocodone/Acetaminophen (*Crx) 5-325 Mg Tablet PO Q4H PRN Moderate Pain (4-6) Acetazolamide 250 mg 05/14/24 09:00 05/16/24 08:48 Acetazolamide Tab 250 Mg Tablet PO 250 mg DAILY ANGELA Administration Allopurinol 100 mg 05/14/24 09:40 05/16/24 08:48 Allopurinol 100 Mg Tablet PO 100 mg DAILY@0800 ANGELA Administration Apixaban 5 mg 05/14/24 09:40 05/16/24 08:48 Apixaban 5 Mg Tablet PO 5 mg Q12HR ANGELA Administration Bumetanide 1 mg 05/14/24 09:40 05/16/24 08:48 Bumetanide 1 Mg Tablet PO 1 mg TID ANGELA Administration Calcitriol 0.25 mcg 05/15/24 09:00 05/15/24 08:32 Calcitriol 0.25 Mcg Capsule PO 0.25 mcg MoWeFr@0900 ANGELA Administration Docusate Sodium 100 mg 05/14/24 09:17 Docusate Sodium 100 Mg Capsule PO Q12H PRN constipation Famotidine 20 mg 05/14/24 17:00 05/16/24 08:48 Famotidine 20 Mg Tablet PO 20 mg BID ANGELA Administration Fluticasone Propionate 1 spray 05/14/24 09:40 05/16/24 08:47 Fluticasone Propionate 0.05% Na Spr 16 Gm Btl (*Bkc) NASAL 1 spray DAILY ANGELA Administration Gabapentin 300 mg 05/14/24 17:00 05/16/24 08:48 Gabapentin 300 Mg Capsule PO 300 mg TID ANGELA Administration Levofloxacin 750 mg 05/15/24 21:00 05/15/24 21:20 Levofloxacin 750 Mg Tablet PO 750 mg Q48H ANGELA Administration Levothyroxine Sodium 200 mcg 05/14/24 09:40 05/16/24 06:01 Levothyroxine Sodium 100 Mcg Tablet PO 200 mcg DAILY@0630 ANGELA Administration Linezolid 600 mg 05/15/24 21:00 05/16/24 08:48 Linezolid 600 Mg Tablet PO 600 mg Q12HR ANGELA Administration Loratadine 10 mg 05/14/24 09:17 Loratadine 10 Mg Tablet PO DAILY PRN allergy symptoms Metoprolol Tartrate 50 mg 05/14/24 09:40 05/16/24 08:48 Metoprolol Tartrate 50 Mg Tab PO 50 mg Q12HR ANGELA Administration Minoxidil 10 mg 05/14/24 09:40 05/16/24 08:48 Minoxidil 10 Mg Tablet PO 10 mg DAILY ANGELA Administration Morphine Sulfate 4 mg 05/13/24 22:16 Morphine Sulfate (*Crx) 4 Mg/Ml Inj IV PUSH Q4H PRN Pain Ondansetron HCl 4 mg 05/14/24 09:12 05/16/24 08:50 Ondansetron Inj 4 Mg/2 Ml Vial IV PUSH 4 mg Q6H PRN Administration Nausea And Vomiting Polyethylene Glycol 17 gm 05/14/24 09:17 Polyethylene Glycol 3350 17 Gm Powd.Pack PO DAILY PRN Constipation Spironolactone 25 mg 05/14/24 09:40 05/16/24 08:48 Spironolactone 25 Mg Tablet PO 25 mg DAILY ANGELA Administration Tamsulosin HCl 0.4 mg 05/14/24 09:40 05/16/24 08:48 Tamsulosin Hcl 0.4 Mg Capsule PO 0.4 mg QAM ANGELA Administration Radiology Results: ITS Impressions Foot X-Ray 05/13/24 17:27 IMPRESSION: Significant degenerative disease and soft tissue swelling. No acute fracture. No cortical erosions are present. Labs Labs: Laboratory Results - last 24 hr 05/16/24 07:08 WBC 8.7 RBC 3.41 L Hgb 9.5 L Hct 33.0 L MCV 96.8 MCH 27.9 MCHC 28.8 L RDW 17.5 H Plt Count 314 MPV 9.5 Immature Gran % (Auto) 1.1 H Neut % (Auto) 82.2 H Lymph % (Auto) 4.5 L [place] % (Auto) 8.3 Eos % (Auto) 3.2 Baso % (Auto) 0.7 Lymph # (Auto) 0.39 L [place] # (Auto) 0.7 H Eos # (Auto) 0.3 Baso # (Auto) 0.1 Abs Immat Gran (auto) 0.10 H Absolute Neuts (auto) 7.2 H Absolute Nucleated RBC 0.030 H Nucleated RBC % 0.3 H Platelet Estimate Adequate Hypochromasia 1+ Anisocytosis 1+ Ovalocytes 1+ Schistocytes None seen ESR 56 H Sodium 133 L Potassium 4.9 Chloride 99 Carbon Dioxide 26 Anion Gap 8 BUN 41 H Creatinine 2.26 H Estim Creat Clear Calc 41 Estimated GFR 28 L Glucose 105 Calcium 8.5 Total Bilirubin 0.5 AST 14 L ALT 7 Alkaline Phosphatase 58 C-Reactive Protein 4.1 H Total Protein 6.0 L Albumin 3.4 L Hospitalist MIPS Advance Care Plan I have confirmed that the patient's Advanced Care Plan is present, code status is documented, or surrogate decision maker is listed in patient medical record.: Yes Medication Reconciliation I have utilized all available resources to obtain, update and review the patients current medications (includes all prescriptions, OTC, herbals, cannabis, and nutritional supplements).: Yes
[2024-05-16 14:00] VITALS: BP 123/54; PULSE 70; RESP 18; TEMP 36.3; O2SAT 96
[2024-05-16] MEDS: ONDANSETRON HCL ODT 4 MG TABLET PO (18:58)
[2024-05-16 20:41] VITALS: PULSE 70
[2024-05-16 21:51] VITALS: BP 111/62; PULSE 72; RESP 18; TEMP 36.1; O2SAT 100
[2024-05-17 06:00] VITALS: BP 139/67; PULSE 70; RESP 18; TEMP 36.6; O2SAT 100
[2024-05-17] MEDS: LEVOTHYROXINE SODIUM 100 MCG TABLET 200 MCG PO (06:08)
[2024-05-17 07:47] LABS: Basophils Absolute Auto 0.1 K/mm3 (0.0-0.1); Basophils Percent Auto 0.7 % (0.2-1.2); Eosinophils Absolute Auto 0.3 K/mm3 (0-0.3); Eosinophils Percent Auto 3.6 % (0-4.4); Hematocrit 31.1 % (42.0-52.0); Immature Granulocyte Absolute 0.07 K/mm3 (0.00-0.031); Immature Granulocyte Percent A 0.9 % (0-0.5); Lymphocytes Absolute Auto 0.45 K/mm3 (0.9-3.2); Lymphocytes Percent Auto 5.5 % (18.3-44.2); Mean Corpuscular HGB Conc 28.9 g/dl (32-36); Mean Corpuscular Volume 96.6 fl (80-100); Mean Platelet Volume 9.5 fl (7.4-10.4); Monocytes Absolute Auto 0.8 K/mm3 (0.1-0.6); Monocytes Percent Auto 9.5 % (2.6-8.5); Neutrophils Absolute Auto 6.5 K/mm3 (1.3-6.7); Neutrophils Percent Auto 79.8 % (45.5-73.1); Nucleated Red Blood Cells Perc 0.4 % (0.0-0.2); Platelet Count Result 282 k/mm3 (150-375); Red Blood Count 3.22 M/mm3 (4.6-6.20); Red Cell Distribution Width 17.2 % (11.5-14.5); White Blood Count 8.1 K/mm3 (4.5-10.0)
[2024-05-17 07:58] LABS: Potassium 4.9 mmol/L (3.4-5.0)
[2024-05-17 08:09] LABS: Alanine Aminotransferase 7 U/L (6-50); Albumin Level 3.2 g/dL (3.5-5.1); Alkaline Phosphatase 54 U/L (38-126); Anion Gap 6 mmol/L (4-12); Aspartate Amino Transferase 16 U/L (17-59); Bilirubin,Total 0.4 mg/dL (0.2-1.3); Blood Urea Nitrogen 42 mg/dL (9-20); CRP 2.2 mg/dL (<1.0); Calcium 8.6 mg/dL (8.4-10.2); Carbon Dioxide 28 mmol/L (22-30); Chloride 99 mmol/L (98-107); Estimated CRCL calculation 38 ml/min; Estimated Glomerular Filt Rate 26; Glucose 103 mg/dL (65-110); Sodium 133 mmol/L (137-145)
[2024-05-17 08:10] LABS: Hypochromasia 1+; Platelet Estimate Adequate (Adequate)
[2024-05-17 08:11] LABS: Anisocytosis 2+; Ovalocytes 1+; Polychromasia 1+; Schistocytes None Seen
[2024-05-17 09:05] LABS: Erythrocyte Sedimentation Rate > 140 mm/hr (0-20)
[2024-05-17 09:40] VITALS: BMI 11.0
[2024-05-17] MEDS: METOPROLOL TARTRATE 50 MG TAB PO ×2 (09:40→22:17)
[2024-05-17] MEDS: TAMSULOSIN HCL 0.4 MG CAPSULE PO (09:40)
[2024-05-17] MEDS: FAMOTIDINE 20 MG TABLET PO ×2 (09:40→16:58)
[2024-05-17] MEDS: SPIRONOLACTONE 25 MG TABLET PO (09:40)
[2024-05-17] MEDS: GABAPENTIN 300 MG CAPSULE PO ×2 (09:40→16:58)
[2024-05-17] MEDS: LINEZOLID 600 MG TABLET PO (09:40)
[2024-05-17] MEDS: acetaZOLAMIDE TAB 250 MG TABLET PO (09:40)
[2024-05-17] MEDS: APIXABAN 5 MG TABLET PO ×2 (09:41→22:18)
[2024-05-17] MEDS: minoxidiL 10 MG TABLET PO (09:41)
[2024-05-17] MEDS: allopurinoL 100 MG TABLET PO (09:41)
[2024-05-17] MEDS: FLUTICASONE PROPIONATE 0.05% NA SPR 16 GM BTL (*BKC) 1 SPRAY NASAL (09:41)
[2024-05-17] MEDS: BUMETANIDE 1 MG TABLET PO ×2 (09:41→16:58)
[2024-05-17] MEDS: LORATADINE 10 MG TABLET PO (11:24)
[2024-05-17] MEDS: ONDANSETRON HCL ODT 4 MG TABLET PO (11:24)
--- NOTE | 2024-05-17 12:33 | PM.IMPN ---
Progress Note: A&P Assessment and Plan (1) Cellulitis of right foot: Code(s): L03.115 - Cellulitis of right lower limb Status: Acute Assessment and Plan: right foot x-ray showed significant degenerative disease and soft tissue swelling, no acute fracture, no cortical erosions are present. Patient was given Levaquin and vancomycin while in the ED switch to monotherapy with meropenem per Infectious Disease pharmacist recommendation. Restart levaquin and add zyvox per discussion with ID pharmacist. if improving, could continue current meds. If not improving consider placing PICC line and discharging with IV antibiotics would be appropriate. Wound nurse consulted pending wound culture - preliminary many WBC--moderate Gram positive Bacilli Patient has appointment with Vascular surgeon on 05/20/24, goal is to discharge for appointment since wound healing may require revascularization to prevent recurrence Recently had an MRI in March without osteo, so did not reimage at this time trending ESR --> 103 --118--56 --140 trending CRP --> 5.5--4.9--4.1--2.1 trend WBC - 7.8--9.4--8.7--8.1 (2) Gout: Qualifiers: Chronicity: chronic Gout etiology: unspecified cause Gout site: multiple sites Qualified Code(s): M1A.09X0 - Idiopathic chronic gout, multiple sites, without tophus (tophi) Code(s): M10.9 - Gout, unspecified Status: Acute Assessment and Plan: continue allopurinol (3) CKD (chronic kidney disease) stage 3, GFR 30-59 ml/min: Qualifiers: Chronic kidney disease stage 3 subtype: stage 3b (GFR 30-44) Qualified Code(s): N18.32 - Chronic kidney disease, stage 3b Code(s): N18.3 - Chronic kidney disease, stage 3 (moderate) Status: Acute Assessment and Plan: Creatinine 2.26, EGFR 28 Patient is at baseline kidney function Avoid nephrotoxic medication and testing with IV contrast (4) Chronic congestive heart failure: Qualifiers: Heart failure type: combined systolic and diastolic Qualified Code(s): I50.42 - Chronic combined systolic (congestive) and diastolic (congestive) heart failure Code(s): I50.9 - Heart failure, unspecified Status: Chronic Assessment and Plan: Continue Bumex, metoprolol, spironolactone (5) Chronic venous insufficiency: Code(s): I87.2 - Venous insufficiency (chronic) (peripheral) Status: Acute Assessment and Plan: * follow up with vascular surgeon 05/20/24 *continue with apixaban 5 mg bid (6) Atrial fibrillation: Qualifiers: Atrial fibrillation type: longstanding persistent Qualified Code(s): I48.11 - Longstanding persistent atrial fibrillation Code(s): I48.91 - Unspecified atrial fibrillation Status: Chronic Assessment and Plan: Continue Eliquis and metoprolol (7) BPH (benign prostatic hyperplasia): Code(s): N40.0 - Benign prostatic hyperplasia without lower urinary tract symptoms Status: Chronic (8) AMELIA (obstructive sleep apnea): Code(s): G47.33 - Obstructive sleep apnea (adult) (pediatric) Status: Acute (9) Self-care deficit: Code(s): Z78.9 - Other specified health status Status: Acute Assessment and Plan: *Possible placement in rehab to home. Had conversation with patient on need to work with PT/OT, he has been refusing to *Discussed that patient will need assistance with wound management. *D/C planning to assist patient Plan Plan DVT: Eliquis Code status: Full Code - Goal is to discharge with follow up outpatient with wound care and Vascular Surgery. Possible placement in rehab to home. Had conversation with patient on need to work with PT/OT, he has been refusing to. Will continue ATB pending culture results. Time Spent With Patient Time with patient: Greater than 35 minutes (40 minutes) Subjective Date/time seen: 05/17/24 12:33 Interval history: Today patient reports his right foot pain is remains his complaint. Right foot wound dressing changed and swelling to entire foot again is noted. Scant serous drainage noted.Right foot noted large open areas. Wound culture is still pending, preliminary noted many WBC, Gram positive bacilli. Initally patient was started on monotherapy with meropenem, however 05/15/24 patient was switched to levaquin and zyvox per discussion with ID pharmacist. Patient reports no chest pain, shortness of breath, headache or distress. He reports nausea with pain medication. He is using his CPAP while sleeping. He ahs been refusing to work with PT/OT. Discussed need to work with this service, he will need more assistance outpatient, consider Rehab to home at discharge for wound and PT/OT. patient is going to consider. CRP improving. patient denies fever, chills, MCCARTHY, N/V/D, weakness or distress. Review of Systems Review of Systems: All systems reviewed & are unremarkable except as noted in HPI and below Constitutional: Constitutional: Reports no additional constitutional complaints Eyes: Eyes: Reports no additional eye complaints ENT: Reports system reviewed and no additional complaints, except as documented Cardiovascular: Cardiovascular: Reports no additional cardiovascular complaints Respiratory: Respiratory: Reports no additional respiratory complaints Gastrointestinal: Gastrointestinal: Reports no additional gastrointestinal complaints Genitourinary: Genitourinary: Reports no additional male genitourinary complaints Musculoskeletal: Musculoskeletal: Reports no additional musculoskeletal complaints and Reports as per HPI Integumentary/Breasts: Skin/Breast: Reports system reviewed and no additional complaints, except as docu and Reports as per HPI Neurologic: Reports system reviewed and no additional complaints, except as documented Psychiatric: Psychiatric: Reports no additional psychiatric complaints Endocrine: Endocrine: Reports no additional endocrine complaints Exam Const: General: cooperative, no acute distress, alert and awake HENMT: Head: normal to inspection and normocephalic Eyes: General: appearance normal, both eyes and all related structures Neck: Neck: normal visual inspection, full ROM and no lymphadenopathy Chest: Chest palpation & inspection: normal inspection of the chest Resp: Effort & Inspection: normal respiratory effort Auscultation: clear to auscultation bilaterally Cardio: Jugular venous distension: no JVD Palpation: normal PMI Rate: regular rate Rhythm: regular rhythm Heart sounds: S1 normal heart sound present and S2 normal heart sound present GI: Inspection: normal to inspection GI Palp: Yes Soft to palpation Auscultation: normal bowel sounds Skin: Wounds: wounds noted right foot drainage serous, without odor, open and with surrounding erythema Neuro: General: oriented to person, oriented to place, oriented to time, tone normal and moves all extremities Extrem: General: normal to inspection and full ROM Psych: Appearance: grossly normal Mental Status: mental status grossly normal Speech and movement: Normal speech and movement present Objective Data Vital Signs Vital Signs: Vital Signs - 24 hr 05/16/24 14:00 05/16/24 20:00 05/16/24 20:41 Temperature 97.3 F L Pulse Rate 70 70 Respiratory Rate 18 Blood Pressure 123/54 L Pulse Oximetry 96 Oxygen Delivery Room Air 05/16/24 21:51 05/17/24 06:00 05/17/24 09:40 Temperature 97 F L 97.9 F Pulse Rate 72 70 Respiratory Rate 18 18 Blood Pressure 111/62 139/67 Pulse Oximetry 100 100 Oxygen Delivery Room Air Intake/Output Intake/Output: Intake & Output 05/14/24 05/15/24 05/16/24 05/17/24 23:59 23:59 23:59 23:59 Intake Total 1510 1070 773 536 Output Total 1500 1050 675 400 Balance 10 20 98 136 Meds/Results Medications: Active Medications Generic Name Dose Route Start Last Admin Trade Name Freq PRN Reason Stop Dose Admin Acetaminophen 650 mg 05/14/24 09:12 Acetaminophen 325 Mg Tablet PO Q4H PRN Mild Pain (1-3) or Fever Hydrocodone Bitart/Acetaminophen 1 tab 05/13/24 22:15 05/16/24 17:53 Hydrocodone/Acetaminophen (*Crx) 10-325 Mg Tablet PO 1 tab Q4H PRN Administration Pain Rated 7-10 Hydrocodone Bitart/Acetaminophen 1 tab 05/14/24 09:12 Hydrocodone/Acetaminophen (*Crx) 5-325 Mg Tablet PO Q4H PRN Moderate Pain (4-6) Acetazolamide 250 mg 05/14/24 09:00 05/17/24 09:40 Acetazolamide Tab 250 Mg Tablet PO 250 mg DAILY ANGELA Administration Allopurinol 100 mg 05/14/24 09:40 05/17/24 09:41 Allopurinol 100 Mg Tablet PO 100 mg DAILY@0800 ANGELA Administration Apixaban 5 mg 05/14/24 09:40 05/17/24 09:41 Apixaban 5 Mg Tablet PO 5 mg Q12HR ANGELA Administration Bumetanide 1 mg 05/14/24 09:40 05/17/24 09:41 Bumetanide 1 Mg Tablet PO 1 mg TID ANGELA Administration Calcitriol 0.25 mcg 05/15/24 09:00 05/15/24 08:32 Calcitriol 0.25 Mcg Capsule PO 0.25 mcg MoWeFr@0900 ANGELA Administration Docusate Sodium 100 mg 05/14/24 09:17 Docusate Sodium 100 Mg Capsule PO Q12H PRN constipation Famotidine 20 mg 05/14/24 17:00 05/17/24 09:40 Famotidine 20 Mg Tablet PO 20 mg BID ANGELA Administration Fluticasone Propionate 1 spray 05/14/24 09:40 05/17/24 09:41 Fluticasone Propionate 0.05% Na Spr 16 Gm Btl (*Bkc) NASAL 1 spray DAILY ANGELA Administration Gabapentin 300 mg 05/14/24 17:00 05/17/24 09:40 Gabapentin 300 Mg Capsule PO 300 mg TID ANGELA Administration Levofloxacin 750 mg 05/15/24 21:00 05/15/24 21:20 Levofloxacin 750 Mg Tablet PO 750 mg Q48H ANGELA Administration Levothyroxine Sodium 200 mcg 05/14/24 09:40 05/17/24 06:08 Levothyroxine Sodium 100 Mcg Tablet PO 200 mcg DAILY@0630 ANGELA Administration Linezolid 600 mg 05/15/24 21:00 05/17/24 09:40 Linezolid 600 Mg Tablet PO 600 mg Q12HR ANGELA Administration Loratadine 10 mg 05/14/24 09:17 05/17/24 11:24 Loratadine 10 Mg Tablet PO 10 mg DAILY PRN Administration allergy symptoms Metoprolol Tartrate 50 mg 05/14/24 09:40 05/17/24 09:40 Metoprolol Tartrate 50 Mg Tab PO 50 mg Q12HR [facility] Administration Minoxidil 10 mg 05/14/24 09:40 05/17/24 09:41 Minoxidil 10 Mg Tablet PO 10 mg DAILY ANGELA Administration Morphine Sulfate 4 mg 05/13/24 22:16 Morphine Sulfate (*Crx) 4 Mg/Ml Inj IV PUSH Q4H PRN Pain Ondansetron HCl 4 mg 05/16/24 13:58 05/17/24 11:24 Ondansetron Hcl Odt 4 Mg Tablet PO 4 mg Q6H PRN Administration Nausea And Vomiting Polyethylene Glycol 17 gm 05/14/24 09:17 Polyethylene Glycol 3350 17 Gm Powd.Pack PO DAILY PRN Constipation Spironolactone 25 mg 05/14/24 09:40 05/17/24 09:40 Spironolactone 25 Mg Tablet PO 25 mg DAILY ANGELA Administration Tamsulosin HCl 0.4 mg 05/14/24 09:40 05/17/24 09:40 Tamsulosin Hcl 0.4 Mg Capsule PO 0.4 mg QAM ANGELA Administration Radiology Results: ITS Impressions Foot X-Ray 05/13/24 17:27 IMPRESSION: Significant degenerative disease and soft tissue swelling. No acute fracture. No cortical erosions are present. Labs Labs: Laboratory Results - last 24 hr 05/17/24 07:40 WBC 8.1 RBC 3.22 L Hgb 9.0 L Hct 31.1 L MCV 96.6 MCH 28.0 MCHC 28.9 L RDW 17.2 H Plt Count 282 MPV 9.5 Immature Gran % (Auto) 0.9 H Neut % (Auto) 79.8 H Lymph % (Auto) 5.5 L [place] % (Auto) 9.5 H Eos % (Auto) 3.6 Baso % (Auto) 0.7 Lymph # (Auto) 0.45 L [place] # (Auto) 0.8 H Eos # (Auto) 0.3 Baso # (Auto) 0.1 Abs Immat Gran (auto) 0.07 H Absolute Neuts (auto) 6.5 Absolute Nucleated RBC 0.030 H Nucleated RBC % 0.4 H Platelet Estimate Adequate Polychromasia 1+ Hypochromasia 1+ Anisocytosis 2+ Ovalocytes 1+ Schistocytes None seen ESR > 140 H Sodium 133 L Potassium 4.9 Chloride 99 Carbon Dioxide 28 Anion Gap 6 BUN 42 H Creatinine 2.45 H Estim Creat Clear Calc 38 Estimated GFR 26 L Glucose 103 Calcium 8.6 Total Bilirubin 0.4 AST 16 L ALT 7 Alkaline Phosphatase 54 C-Reactive Protein 2.2 H Total Protein 6.0 L Albumin 3.2 L Hospitalist MIPS Advance Care Plan I have confirmed that the patient's Advanced Care Plan is present, code status is documented, or surrogate decision maker is listed in patient medical record.: Yes Medication Reconciliation I have utilized all available resources to obtain, update and review the patients current medications (includes all prescriptions, OTC, herbals, cannabis, and nutritional supplements).: Yes
[2024-05-17 14:00] VITALS: BP 114/69; PULSE 85; RESP 14; TEMP 36.4; O2SAT 98
[2024-05-17] MEDS: ONDANSETRON INJ 4 MG/2 ML VIAL IV PUSH (16:58)
[2024-05-17 20:00] VITALS: BP 114/47; PULSE 108; RESP 19; TEMP 36.8; O2SAT 94
[2024-05-17] MEDS: METOCLOPRAMIDE HCL INJ 10 MG/2 ML VIAL IV PUSH (21:28)
[2024-05-17 22:17] VITALS: PULSE 85
--- NOTE | 2024-05-17 22:45 | PC.NURSE ---
I called and left a message for Nanci Lindsay NP about Pt. REFUSING PO antibiotics tonight stating that it is what is causing his stomach to be upset, nausea & vomiting. Informed her that Pt. is on Linezolid 600 mg PO Q 12 hours & Levaquin 750 mg PO Q48 hours (this would be his second dose of Levaquin). Informed her that preliminary wound culture shows gram positive bacilli with previous results from 03/08/24 showing staphyococus aureus and pseudomonas aeruginosa. Asked if she would like Pt. to restart IV antibiotics. I asked if she wanted to review Pt's chart and either put orders in or call us back, we would appreciate it.
[2024-05-18] VITALS: BP 111/56; PULSE 64; RESP 14; TEMP 37; O2SAT 99
[2024-05-18] MEDS: LEVOTHYROXINE SODIUM 100 MCG TABLET 200 MCG PO (05:25)
[2024-05-18 08:34] LABS: Basophils Absolute Auto 0.1 K/mm3 (0.0-0.1); Basophils Percent Auto 0.6 % (0.2-1.2); Eosinophils Absolute Auto 0.3 K/mm3 (0-0.3); Eosinophils Percent Auto 3.2 % (0-4.4); Hematocrit 30.5 % (42.0-52.0); Immature Granulocyte Absolute 0.08 K/mm3 (0.00-0.031); Lymphocytes Absolute Auto 0.47 K/mm3 (0.9-3.2); Mean Corpuscular HGB Conc 29.5 g/dl (32-36); Mean Corpuscular Hemoglobin 28.2 pg (26-34); Mean Corpuscular Volume 95.6 fl (80-100); Mean Platelet Volume 9.7 fl (7.4-10.4); Monocytes Absolute Auto 0.6 K/mm3 (0.1-0.6); Monocytes Percent Auto 7.3 % (2.6-8.5); Neutrophils Absolute Auto 6.4 K/mm3 (1.3-6.7); Neutrophils Percent Auto 81.9 % (45.5-73.1); Platelet Count Result 295 k/mm3 (150-375); Red Blood Count 3.19 M/mm3 (4.6-6.20); Red Cell Distribution Width 17.2 % (11.5-14.5); White Blood Count 7.8 K/mm3 (4.5-10.0)
[2024-05-18 08:42] LABS: Alanine Aminotransferase 8 U/L (6-50); Alkaline Phosphatase 50 U/L (38-126); Anion Gap 7 mmol/L (4-12); Aspartate Amino Transferase 21 U/L (17-59); Bilirubin,Total 0.5 mg/dL (0.2-1.3); Blood Urea Nitrogen 41 mg/dL (9-20); CRP 1.3 mg/dL (<1.0); Calcium 8.6 mg/dL (8.4-10.2); Carbon Dioxide 26 mmol/L (22-30); Chloride 100 mmol/L (98-107); Estimated CRCL calculation 40 ml/min; Estimated Glomerular Filt Rate 28; Glucose 88 mg/dL (65-110); Potassium 4.6 mmol/L (3.4-5.0); Sodium 133 mmol/L (137-145)
[2024-05-18 09:09] LABS: Anisocytosis 1+; Hypochromasia 1+; Platelet Estimate Adequate (Adequate); Polychromasia 1+; Schistocytes None Seen; Target Cells 1+
[2024-05-18 09:39] LABS: Erythrocyte Sedimentation Rate 134 mm/hr (0-20)
[2024-05-18] MEDS: BUMETANIDE 1 MG TABLET PO ×2 (12:39→16:42)
[2024-05-18] MEDS: acetaZOLAMIDE TAB 250 MG TABLET PO (12:39)
[2024-05-18] MEDS: FAMOTIDINE 20 MG TABLET PO ×2 (12:39→16:42)
[2024-05-18] MEDS: minoxidiL 10 MG TABLET PO (12:39)
[2024-05-18] MEDS: TAMSULOSIN HCL 0.4 MG CAPSULE PO (12:39)
[2024-05-18] MEDS: APIXABAN 5 MG TABLET PO ×2 (12:39→20:49)
[2024-05-18] MEDS: allopurinoL 100 MG TABLET PO (12:39)
[2024-05-18] MEDS: METOPROLOL TARTRATE 50 MG TAB PO ×2 (12:39→20:48)
[2024-05-18] MEDS: calcitrioL 0.25 MCG CAPSULE PO (12:40)
[2024-05-18] MEDS: SPIRONOLACTONE 25 MG TABLET PO (12:40)
[2024-05-18] MEDS: LINEZOLID 600 MG TABLET PO ×2 (12:40→20:48)
[2024-05-18] MEDS: FLUTICASONE PROPIONATE 0.05% NA SPR 16 GM BTL (*BKC) 1 SPRAY NASAL (12:40)
[2024-05-18] MEDS: GABAPENTIN 300 MG CAPSULE PO ×2 (12:40→16:42)
[2024-05-18] MEDS: METOCLOPRAMIDE HCL INJ 10 MG/2 ML VIAL IV PUSH (12:41)
[2024-05-18] MEDS: HYDROcodone/acetaminophen (*CRX) 10-325 MG TABLET 1 TAB PO (13:07)
[2024-05-18 14:00] VITALS: BP 90/38; PULSE 71; RESP 18; TEMP 37.1; O2SAT 97
--- NOTE | 2024-05-18 15:10 | PM.IMPN ---
Progress Note: A&P Assessment and Plan (1) Cellulitis of right foot: Code(s): L03.115 - Cellulitis of right lower limb Status: Acute Assessment and Plan: right foot x-ray showed significant degenerative disease and soft tissue swelling, no acute fracture, no cortical erosions are present. Patient was given Levaquin and vancomycin while in the ED We will switch to monotherapy with meropenem per Infectious Disease pharmacist recommendation Wound nurse consulted Patient has appointment with Vascular surgeon on 05/20/2405/15 Patient was changed to linezolid and Levaquin oral 05/18 continue linezolid and Levaquin consider IV antibiotics if not tolerating p.o. antibiotic choices discussed with Infectious Disease pharmacist he will need 14 day duration (2) Gout: Qualifiers: Chronicity: chronic Gout etiology: unspecified cause Gout site: multiple sites Qualified Code(s): M1A.09X0 - Idiopathic chronic gout, multiple sites, without tophus (tophi) Code(s): M10.9 - Gout, unspecified Status: Acute Assessment and Plan: Continue allopurinol 05/18 no change to current treatment plan (3) Stage 3b chronic kidney disease: Code(s): N18.32 - Chronic kidney disease, stage 3b Status: Acute Assessment and Plan: Creatinine 2.26, EGFR 28 Patient is at baseline kidney function Avoid nephrotoxic medication and testing with IV contrast 05/18 no change to current treatment plan (4) Hypothyroidism: Qualifiers: Hypothyroidism type: acquired Qualified Code(s): E03.9 - Hypothyroidism, unspecified Code(s): E03.9 - Hypothyroidism, unspecified Status: Acute Assessment and Plan: Continue Synthroid 05/18 no change to current treatment plan (5) CHF (congestive heart failure): Code(s): I50.9 - Heart failure, unspecified Status: Acute Assessment and Plan: Continue Bumex, metoprolol, spironolactone 05/18 no change to current treatment plan (6) Atrial fibrillation: Qualifiers: Atrial fibrillation type: longstanding persistent Qualified Code(s): I48.11 - Longstanding persistent atrial fibrillation Code(s): I48.91 - Unspecified atrial fibrillation Status: Chronic Assessment and Plan: Continue Eliquis and metoprolol 05/18 no change to current treatment plan (7) AMELIA (obstructive sleep apnea): Code(s): G47.33 - Obstructive sleep apnea (adult) (pediatric) Status: Acute Assessment and Plan: CPAP ordered 05/18 no change to current treatment plan (8) BPH (benign prostatic hyperplasia): Code(s): N40.0 - Benign prostatic hyperplasia without lower urinary tract symptoms Status: Chronic Assessment and Plan: Continue Flomax 05/18 no change to current treatment plan Time Spent With Patient Time with patient: 25 - 35 minutes Subjective Date/time seen: 05/18/24 15:10 Interval history: Interval history: This is a 74-year-old male with significant past medical history peripheral vascular disease, morbid obesity, gout, lymphedema, obstructive sleep apnea, chronic kidney disease, atrial fibrillation, GERD, hypertension, hypothyroidism, dyslipidemia, congestive heart failure, former smoker who presented to the hospital with chronic right foot infection. Patient states he sees the vascular surgeon on 05/20/24. He reports throbbing pain in the right foot with increased redness and swelling. Workup in the hospital included a foot x-ray which showed significant degenerative disease in soft tissue swelling, no acute fracture, no osteomyelitis. Initial labs shown a white blood cell count of 10.6, hemoglobin 9.5, sodium 132, creatinine 2.33, EGFR 27. Blood cultures were obtained and pending. Patient had a wound culture on 03/08/2024 showing Pseudomonas aeruginosa and Staphylococcus aureus on final read. Patient was started on Levaquin and vancomycin while in the ED. Will switch to monotherapy meropenem per Infectious Disease pharmacist recommendation. subjective: patient denies any new complaints today. He states he is unable to take the Levaquin and Zyvox oral as it is making him nauseous. The palliative nurse nurse held the medication however the day shift nurse today was able to given the medication without any difficulty. If he is unable to get all of his doses, we will have to the the switched to IV. Labs and imaging reviewed. Patient also stated that he canceled his vascular appointment that was scheduled on 05/20/2024 as he has been having some difficulty getting up out of the bed and moving around. Review of Systems Review of Systems: All systems reviewed & are unremarkable except as noted in HPI and below Exam Narrative: General: In no acute distress, well nourished Cardiac: Normal S1 and S2. No murmur, gallops or friction rubs, peripheral pulses intact. Respiratory: Lungs clear to auscultation, no adventitious lung sounds, currently on room air Gastrointestinal: soft, non-distended, non-tender, normoactive bowel sounds. : voiding without difficulty. Extremities: moves all extremities well, lymphedema bilateral lower extremities Skin: Right foot swelling with dressing in place Multiple open areas with eschar present. Neuro: Alert and oriented x4 Objective Data Vital Signs Vital Signs: Vital Signs - 24 hr 05/17/24 20:00 05/17/24 20:00 05/17/24 22:17 Temperature 98.3 F Pulse Rate 108 H 85 Respiratory Rate 19 Blood Pressure 114/47 L Pulse Oximetry 94 Oxygen Delivery Room Air 05/18/24 00:00 05/18/24 11:39 Temperature 98.6 F Pulse Rate 64 Respiratory Rate 14 Blood Pressure 111/56 L Pulse Oximetry 99 Oxygen Delivery Room Air Intake/Output Intake/Output: Intake & Output 05/15/24 05/16/24 05/17/24 05/18/24 23:59 23:59 23:59 23:59 Intake Total 1070 773 536 240 Output Total 2047 449 5166 Balance 20 98 -964 240 Meds/Results Medications: Active Medications Generic Name Dose Route Start Last Admin Trade Name Freq PRN Reason Stop Dose Admin Acetaminophen 650 mg 05/14/24 09:12 Acetaminophen 325 Mg Tablet PO Q4H PRN Mild Pain (1-3) or Fever Hydrocodone Bitart/Acetaminophen 1 tab 05/13/24 22:15 05/18/24 13:07 Hydrocodone/Acetaminophen (*Crx) 10-325 Mg Tablet PO 1 tab Q4H PRN Administration Pain Rated 7-10 Hydrocodone Bitart/Acetaminophen 1 tab 05/14/24 09:12 Hydrocodone/Acetaminophen (*Crx) 5-325 Mg Tablet PO Q4H PRN Moderate Pain (4-6) Acetazolamide 250 mg 05/14/24 09:00 05/18/24 12:39 Acetazolamide Tab 250 Mg Tablet PO 250 mg DAILY ANGELA Administration Allopurinol 100 mg 05/14/24 09:40 05/18/24 12:39 Allopurinol 100 Mg Tablet PO 100 mg DAILY@0800 ANGELA Administration Apixaban 5 mg 05/14/24 09:40 05/18/24 12:39 Apixaban 5 Mg Tablet PO 5 mg Q12HR ANGELA Administration Bumetanide 1 mg 05/14/24 09:40 05/18/24 13:11 Bumetanide 1 Mg Tablet PO Not Given TID ON LICENSE OF [facility] Calcitriol 0.25 mcg 05/15/24 09:00 05/18/24 12:40 Calcitriol 0.25 Mcg Capsule PO 0.25 mcg MoWeFr@0900 ON LICENSE OF [facility] Administration Docusate Sodium 100 mg 05/14/24 09:17 Docusate Sodium 100 Mg Capsule PO Q12H PRN constipation Famotidine 20 mg 05/14/24 17:00 05/18/24 12:39 Famotidine 20 Mg Tablet PO 20 mg BID ON LICENSE OF [facility] Administration Fluticasone Propionate 1 spray 05/14/24 09:40 05/18/24 12:40 Fluticasone Propionate 0.05% Na Spr 16 Gm Btl (*Bkc) NASAL 1 spray DAILY ON LICENSE OF [facility] Administration Gabapentin 300 mg 05/14/24 17:00 05/18/24 13:11 Gabapentin 300 Mg Capsule PO Not Given TID ON LICENSE OF [facility] Levofloxacin 750 mg 05/15/24 21:00 05/17/24 22:18 Levofloxacin 750 Mg Tablet PO Not Given Q48H ON LICENSE OF [facility] Levothyroxine Sodium 200 mcg 05/14/24 09:40 05/18/24 05:25 Levothyroxine Sodium 100 Mcg Tablet PO 200 mcg DAILY@0630 ON LICENSE OF [facility] Administration Linezolid 600 mg 05/15/24 21:00 05/18/24 12:40 Linezolid 600 Mg Tablet PO 600 mg Q12HR ON LICENSE OF [facility] Administration Loratadine 10 mg 05/14/24 09:17 05/17/24 11:24 Loratadine 10 Mg Tablet PO 10 mg DAILY PRN Administration allergy symptoms Metoclopramide HCl 10 mg 05/17/24 13:32 05/18/24 12:41 Metoclopramide Hcl Inj 10 Mg/2 Ml Vial IV PUSH 10 mg Q6HR PRN Administration Nausea And Vomiting Metoprolol Tartrate 50 mg 05/14/24 09:40 05/18/24 12:39 Metoprolol Tartrate 50 Mg Tab PO 50 mg Q12HR ANGELA Administration Minoxidil 10 mg 05/14/24 09:40 05/18/24 12:39 Minoxidil 10 Mg Tablet PO 10 mg DAILY ON LICENSE OF [facility] Administration Morphine Sulfate 4 mg 05/13/24 22:16 Morphine Sulfate (*Crx) 4 Mg/Ml Inj IV PUSH Q4H PRN Pain Ondansetron HCl 4 mg 05/17/24 13:32 05/17/24 16:58 Ondansetron Inj 4 Mg/2 Ml Vial IV PUSH 4 mg Q6H PRN Administration Nausea And Vomiting Polyethylene Glycol 17 gm 05/14/24 09:17 Polyethylene Glycol 3350 17 Gm Powd.Pack PO DAILY PRN Constipation Spironolactone 25 mg 05/14/24 09:40 05/18/24 12:40 Spironolactone 25 Mg Tablet PO 25 mg DAILY ANGELA Administration Tamsulosin HCl 0.4 mg 05/14/24 09:40 05/18/24 12:39 Tamsulosin Hcl 0.4 Mg Capsule PO 0.4 mg QAM ANGELA Administration Radiology Results: ITS Impressions Foot X-Ray 05/13/24 17:27 IMPRESSION: Significant degenerative disease and soft tissue swelling. No acute fracture. No cortical erosions are present. Labs Labs: Laboratory Results - last 24 hr 05/18/24 08:06 WBC 7.8 RBC 3.19 L Hgb 9.0 L Hct 30.5 L MCV 95.6 MCH 28.2 MCHC 29.5 L RDW 17.2 H Plt Count 295 MPV 9.7 Immature Gran % (Auto) 1.0 H Neut % (Auto) 81.9 H Lymph % (Auto) 6.0 L [place] % (Auto) 7.3 Eos % (Auto) 3.2 Baso % (Auto) 0.6 Lymph # (Auto) 0.47 L [place] # (Auto) 0.6 Eos # (Auto) 0.3 Baso # (Auto) 0.1 Abs Immat Gran (auto) 0.08 H Absolute Neuts (auto) 6.4 Absolute Nucleated RBC 0.000 Nucleated RBC % 0.0 Platelet Estimate Adequate Polychromasia 1+ Hypochromasia 1+ Anisocytosis 1+ Target Cells 1+ Schistocytes None seen ESR 134 H Sodium 133 L Potassium 4.6 Chloride 100 Carbon Dioxide 26 Anion Gap 7 BUN 41 H Creatinine 2.30 H Estim Creat Clear Calc 40 Estimated GFR 28 L Glucose 88 Calcium 8.6 Total Bilirubin 0.5 AST 21 ALT 8 Alkaline Phosphatase 50 C-Reactive Protein 1.3 H Total Protein 6.0 L Albumin 3.0 L Quality VTE Prophylaxis VTE prophylaxis: pharmacologic ordered
[2024-05-18 20:48] VITALS: PULSE 80
[2024-05-18] MEDS: ONDANSETRON INJ 4 MG/2 ML VIAL IV PUSH (20:53)
[2024-05-19] VITALS: BP 108/53; PULSE 81; RESP 16; TEMP 36.9; O2SAT 99
[2024-05-19] MEDS: HYDROcodone/acetaminophen (*CRX) 5-325 MG TABLET 1 TAB PO (00:03)
[2024-05-19] MEDS: LEVOTHYROXINE SODIUM 100 MCG TABLET 200 MCG PO (05:38)
[2024-05-19 06:51] LABS: Basophils Absolute Auto 0.1 K/mm3 (0.0-0.1); Basophils Percent Auto 1.1 % (0.2-1.2); Eosinophils Absolute Auto 0.3 K/mm3 (0-0.3); Eosinophils Percent Auto 3.9 % (0-4.4); Hematocrit 28.8 % (42.0-52.0); Hemoglobin 8.4 g/dL (14.0-18.0); Immature Granulocyte Absolute 0.07 K/mm3 (0.00-0.031); Immature Granulocyte Percent A 0.9 % (0-0.5); Lymphocytes Absolute Auto 0.51 K/mm3 (0.9-3.2); Lymphocytes Percent Auto 6.8 % (18.3-44.2); Mean Corpuscular HGB Conc 29.2 g/dl (32-36); Mean Corpuscular Hemoglobin 27.4 pg (26-34); Mean Corpuscular Volume 93.8 fl (80-100); Mean Platelet Volume 9.7 fl (7.4-10.4); Monocytes Absolute Auto 0.6 K/mm3 (0.1-0.6); Monocytes Percent Auto 8.6 % (2.6-8.5); Neutrophils Absolute Auto 5.9 K/mm3 (1.3-6.7); Neutrophils Percent Auto 78.7 % (45.5-73.1); Platelet Count Result 279 k/mm3 (150-375); Red Blood Count 3.07 M/mm3 (4.6-6.20); Red Cell Distribution Width 16.9 % (11.5-14.5); White Blood Count 7.5 K/mm3 (4.5-10.0)
[2024-05-19 07:01] LABS: Alanine Aminotransferase 8 U/L (6-50); Albumin Level 2.8 g/dL (3.5-5.1); Alkaline Phosphatase 50 U/L (38-126); Anion Gap 10 mmol/L (4-12); Aspartate Amino Transferase 14 U/L (17-59); Bilirubin,Total 0.6 mg/dL (0.2-1.3); Blood Urea Nitrogen 39 mg/dL (9-20); CRP 1.2 mg/dL (<1.0); Calcium 8.3 mg/dL (8.4-10.2); Carbon Dioxide 23 mmol/L (22-30); Chloride 100 mmol/L (98-107); Estimated CRCL calculation 42 ml/min; Estimated Glomerular Filt Rate 29; Glucose 83 mg/dL (65-110); Potassium 4.2 mmol/L (3.4-5.0); Sodium 133 mmol/L (137-145)
[2024-05-19 08:06] LABS: Anisocytosis 1+; Hypochromasia 1+; Platelet Estimate Adequate (Adequate); Polychromasia 1+
[2024-05-19 08:07] LABS: Schistocytes None Seen; Target Cells 1+; Tear Drop Cells 1+
[2024-05-19 08:25] VITALS: BP 112/50; PULSE 71; RESP 18; O2SAT 97
[2024-05-19 08:29] VITALS: PULSE 71
[2024-05-19] MEDS: acetaZOLAMIDE TAB 250 MG TABLET PO (08:29)
[2024-05-19] MEDS: SPIRONOLACTONE 25 MG TABLET PO (08:29)
[2024-05-19] MEDS: ONDANSETRON INJ 4 MG/2 ML VIAL IV PUSH (08:29)
[2024-05-19] MEDS: LINEZOLID 600 MG TABLET PO (08:29)
[2024-05-19] MEDS: TAMSULOSIN HCL 0.4 MG CAPSULE PO (08:29)
[2024-05-19] MEDS: minoxidiL 10 MG TABLET PO (08:29)
[2024-05-19] MEDS: APIXABAN 5 MG TABLET PO (08:29)
[2024-05-19] MEDS: GABAPENTIN 300 MG CAPSULE PO ×2 (08:29→12:57)
[2024-05-19] MEDS: FAMOTIDINE 20 MG TABLET PO (08:29)
[2024-05-19] MEDS: METOPROLOL TARTRATE 50 MG TAB PO (08:29)
[2024-05-19] MEDS: BUMETANIDE 1 MG TABLET PO ×2 (08:29→12:57)
[2024-05-19] MEDS: allopurinoL 100 MG TABLET PO (08:29)
[2024-05-19] MEDS: FLUTICASONE PROPIONATE 0.05% NA SPR 16 GM BTL (*BKC) 1 SPRAY NASAL (08:33)
[2024-05-19 09:00] LABS: Erythrocyte Sedimentation Rate 105 mm/hr (0-20)
[2024-05-19] MEDS: CIPROFLOXACIN 500 MG TAB PO (12:57)
--- NOTE | 2024-05-19 13:57 | P.DS_ITS ---
DS: Admitting Diagnosis Discharge Date 05/19/24 DS: Summary Time Spent with Patient Time attestation: Total time spent providing and/or coordinating discharge services: DS: Data Data Completed and Pending Labs on day of discharge: Labs from last 24 hours 05/19/24 06:15 WBC 7.5 RBC 3.07 L Hgb 8.4 L Hct 28.8 L MCV 93.8 MCH 27.4 MCHC 29.2 L RDW 16.9 H Plt Count 279 MPV 9.7 Immature Gran % (Auto) 0.9 H Neut % (Auto) 78.7 H Lymph % (Auto) 6.8 L Alfalfa % (Auto) 8.6 H Eos % (Auto) 3.9 Baso % (Auto) 1.1 Lymph # (Auto) 0.51 L Alfalfa # (Auto) 0.6 Eos # (Auto) 0.3 Baso # (Auto) 0.1 Abs Immat Gran (auto) 0.07 H Absolute Neuts (auto) 5.9 Absolute Nucleated RBC 0.000 Nucleated RBC % 0.0 Platelet Estimate Adequate Polychromasia 1+ Hypochromasia 1+ Anisocytosis 1+ Target Cells 1+ Tear Drop Cells 1+ Schistocytes None seen ESR 105 H Sodium 133 L Potassium 4.2 Chloride 100 Carbon Dioxide 23 Anion Gap 10 BUN 39 H Creatinine 2.23 H Estim Creat Clear Calc 42 Estimated GFR 29 L Glucose 83 Calcium 8.3 L Total Bilirubin 0.6 AST 14 L ALT 8 Alkaline Phosphatase 50 C-Reactive Protein 1.2 H Total Protein 5.0 L Albumin 2.8 L Preliminary micro results at discharge 05/15/24 12:12 Anaerobic Culture - Preliminary Foot Right Discharge Plan Discharge Attending physician on discharge: Kathleen Manriquez Discharging Clinician: Caroline Rawls Anticipated Discharge Date/Time: 05/19/24 10:36 Patient Disposition: SNF Activity: as tolerated Diet: as tolerated and heart healthy Discharge Instructions: Care Coordination: Patient to have Home Health resume services for PT/OT eval and treat, and care home at discharge. Their phone number is [phone] if you have any questions; they will contact you to schedule their first visit. RN Please fax discharge instructions to [phone]. * finish your antibiotics as directed even if your feeling better * follow-up with your primary care doctor in 1 week * make appointment with vascular surgery as soon as possible Patient Instructions: Antibiotic Form, Apixaban (By mouth) Patient Language: Frisian Stand Alone Forms: General Discharge Information, Detention Discharge Follow-up/Referrals: Lilliana Tomas, PRODUCT MARKETING COORDINATOR [Primary Care Provider] - 1 Week Discharge Medications: New linezolid 600 mg Tablet 600 mg PO Q12HR Qty: 16 0RF ciprofloxacin HCl 500 mg Tablet 500 mg PO Q12HR Qty: 16 0RF ondansetron 4 mg tablet,disintegrating 4 mg PO Q8H Qty: 20 0RF Continued loratadine [Claritin] 10 mg tablet 10 mg PO DAILY PRN (Reason: allergy symptoms) fluticasone propionate [Flonase Allergy Relief] 50 mcg/actuation spray,suspension 1 spray intranasal DAILY Rx Instructions: administer into each nostril Eliquis 5 mg tablet 5 mg PO Q12HR Qty: 180 1RF Patient Comments: metoprolol tartrate 50 mg tablet 50 mg PO Q12HR Qty: 180 1RF acetazolamide 250 mg tablet 250 mg PO DAILY minoxidil 10 mg tablet 10 mg PO DAILY calcitriol 0.25 mcg capsule 0.25 mcg PO 3XW Qty: 36 3RF Rx Instructions: take on Saturday, Saturday, Fridays Minerin Creme Cream 1 applic topical BID Qty: 113 0RF Rx Instructions: Apply to jackie lower legs polyethylene glycol 3350 [Miralax] 17 gram/dose Powder 17 g PO DAILY PRN (Reason: Constipation) acetaminophen 325 mg tablet 500 mg PO Q4H PRN (Reason: Mild Pain (1-3) Or Fever) potassium chloride 10 mEq capsule, extended release 10 meq PO DAILY Qty: 7 0RF docusate sodium 100 mg Capsule 100 mg PO Q12H PRN (Reason: constipation) famotidine 20 mg tablet 20 mg PO BID allopurinol 100 mg tablet 100 mg PO DAILY@0800 Qty: 30 0RF Rx Instructions: NEEDS APPOINTMENT FOR FURTHER REFILLS bumetanide 1 mg tablet 1 mg PO TID Qty: 90 3RF gabapentin 300 mg capsule 300 mg PO TID Qty: 270 1RF levothyroxine 200 mcg tablet 200 mcg PO DAILY spironolactone 25 mg tablet 25 mg PO DAILY Qty: 30 0RF tamsulosin 0.4 mg capsule 0.4 mg PO QAM Qty: 90 3RF Date of admission: 05/13/24 16:49 Primary Care Provider: Lilliana Tomas Admitting Provider: Fredis Rojas Attending physician on admission: Caroline Rawls Condition: Improved
[2024-05-19 14:50] VITALS: BMI 11.0
[2024-05-19 15:19] LABS: SARS-CoV-2 RNA PCR Negative (Negative)
== END 2024-05-19 15:30 | DRG 603 ==
LOC: ANHED 14:44 → ANH3MEDSUR 17:39
PROVIDERS: General Practice; Admitting Provider Hospitalist; Emergency Provider Emergency Medicine; PCP Nurse Practitioner Family; Visit Provider Nurse Practitioner Acute Care
DX: L03.115 Cellulitis of right lower limb (principal); I48.11 Longstanding persistent atrial fibrillation; I13.0 Hypertensive heart and chronic kidney disease with heart failure and stage 1 through stage 4 chronic kidney disease, or unspecified chronic kidney disease; I50.42 Chronic combined systolic (congestive) and diastolic (congestive) heart failure; Z68.41 Body mass index [BMI] 40.0-44.9, adult; E66.01 Morbid (severe) obesity due to excess calories; M10.9 Gout, unspecified; N18.32 Chronic kidney disease, stage 3b; E03.9 Hypothyroidism, unspecified; I73.9 Peripheral vascular disease, unspecified; G47.33 Obstructive sleep apnea (adult) (pediatric); N40.0 Benign prostatic hyperplasia without lower urinary tract symptoms; Z87.891 Personal history of nicotine dependence; Z90.49 Acquired absence of other specified parts of digestive tract; Z78.9 Other specified health status
CPT/HCPCS: 36415; 73630; 80048; 80053; 82565; 83605; 83735; 85025; 85652; 86140; 87040; 87075; 87635; 93005; 96365; 96367; 97162; 97167; 97530; 97535; 99285; A9270; J1956; J2185; J2405; J2765; J3370

== ENCOUNTER 2024-08-20 11:27 | Inpatient (IN) | payer MEDICARE, SELFPAY ==
[2024-08-20] VITALS (20 sets, daily range): BP systolic 94–121; BP diastolic 52–82; PULSE 65–110; RESP 12–20; TEMP 36.6; O2SAT 91–100
--- NOTE | ~2024-08-20 | XR_ITS ---
XR tibia fibula RT 2V Ordering provider: Gutierrez Parker III, History: . wound, TO LOW LEG SWELLING . Comparison: None. FINDINGS: BONES: Lucency in the area of the lateral malleolus. Clinical correlation advised. Possible lucency i n the medial malleolus also not excluded which may be summation shadow JOINT SPACES: Normal. SOFT TISSUES: Soft tissue swelling over the medial and lateral malleoli IMPRESSION: No definite acute osseous abnormality right leg. Lucencies in the area of the medial and lateral mall eoli which may be summation shadows. Clinical correlation and follow-up advised.. Reviewed, dictated and finalized at location A. IMPRESSION: No definite acute osseous abnormality right leg. Lucencies in the area of the m edial and lateral malleoli which may be summation shadows. Clinical correlation and follow-up advised..
--- NOTE | ~2024-08-20 | XR_ITS ---
Right foot Technique: AP, oblique, and lateral views were obtained. Clinical History: Wound, swelling Findings: No acute fracture or dislocation is seen. Osseous alignment is anatomic. Joint spaces are p reserved without erosive or degenerative change. Plantar calcaneal spur present. Extensive soft tissu e swelling present, especially over the dorsum of the foot. Impression: Extensive soft tissue swelling. No definite evidence for osteomyelitis. Reviewed, dictated and finalized at location M. Impression: Extensive soft tissue swelling. No definite evidence for osteomyelitis.
--- NOTE | ~2024-08-20 | XR_ITS ---
XR ankle RT min 3V Ordering provider: Gutierrez Parker III, DO History: . wound TO LOWER LEG, SWELLING . Comparison: August 20, 2024 FINDINGS: BONES: Lucency over the lateral malleolus which may be summation shadow or a fracture. Follow-up advi sed. JOINT SPACES: Narrowed ankle and subtalar joints. SOFT TISSUES: Soft tissue swelling over the medial and lateral malleoli. Calcaneal spur. Ossification of the insertion of the tendo Achilles. IMPRESSION: Lucency over the right lateral malleolus. Follow-up advised. 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 Reviewed, dictated and finalized at location A.
[2024-08-20 12:08] LABS: Basophils Absolute Auto 0.1 K/mm3 (0.0-0.1); Basophils Percent Auto 0.6 % (0.2-1.2); Eosinophils Absolute Auto 0.4 K/mm3 (0-0.3); Eosinophils Percent Auto 3.7 % (0-4.4); Hematocrit 34.1 % (42.0-52.0); Hemoglobin 9.5 g/dL (14.0-18.0); Immature Granulocyte Absolute 0.06 K/mm3 (0.00-0.031); Immature Granulocyte Percent A 0.6 % (0-0.5); Lymphocytes Absolute Auto 0.44 K/mm3 (0.9-3.2); Lymphocytes Percent Auto 4.6 % (18.3-44.2); Mean Corpuscular HGB Conc 27.9 g/dl (32-36); Mean Corpuscular Hemoglobin 25.6 pg (26-34); Mean Corpuscular Volume 91.9 fl (80-100); Mean Platelet Volume 9.9 fl (7.4-10.4); Monocytes Absolute Auto 0.7 K/mm3 (0.1-0.6); Monocytes Percent Auto 7.3 % (2.6-8.5); Neutrophils Percent Auto 83.2 % (45.5-73.1); Platelet Count Result 349 k/mm3 (150-375); Red Blood Count 3.71 M/mm3 (4.6-6.20); White Blood Count 9.6 K/mm3 (4.5-10.0)
[2024-08-20 12:17] LABS: Alanine Aminotransferase 9 U/L (6-50); Albumin Level 3.5 g/dL (3.5-5.1); Alkaline Phosphatase 39 U/L (38-126); Anion Gap 9 mmol/L (4-12); Aspartate Amino Transferase 17 U/L (17-59); Bilirubin,Total 0.3 mg/dL (0.2-1.3); Blood Urea Nitrogen 60 mg/dL (9-20); Calcium 8.2 mg/dL (8.4-10.2); Carbon Dioxide 28 mmol/L (22-30); Chloride 96 mmol/L (98-107); Estimated CRCL calculation 37 ml/min; Estimated Glomerular Filt Rate 26; Glucose 104 mg/dL (65-110); Potassium 3.6 mmol/L (3.4-5.0); Sodium 133 mmol/L (137-145)
--- OUTSIDE RECORDS SUMMARY | 2024-08-20 12:50 | XMS_ITS | Encounter Summary ---
Author Organization [facility]ions Address [address] [address] Phone Care Team Providers Care Professor Of Poultry Science Name Role Phone Alicia Malcolm MD Primary Care Provider Encounter Details Date Type Department Care Team (Late st Contact Info) Description 09/17/2019 Telephone [facility] Nephrology and Hypertension [address], [address] [facility] [place] [address] Jacquie Al MA Social History Tobacco Use Types Packs/Day Years Used Date Smoking Tobacco: Former Smokeless Tobacco: Never Comments:Smoking History Pac ks/day: quit - in 1977 Alcohol Use Standard Drinks/Week Comments Yes 0 (1 standard drink = 0.6 oz pure alcohol) Alcoholic Drinks/day: once a day (beer) Sex and Gender Information Value Date Recorded Sex Assigned at Not on file Legal Sex Male 8:22 AM MST Gender Identity Not on file Sexual Orientation Not on file documented as of this encounter Miscellaneous Notes * Telephone Encounter - Jacquie Al MA - 10/24/2020 10:14 AM CDT old documented in this encounter Plan of Treatment Not on file documented as of this encounter Visit Diagnoses Not on filedocumented in this encounter Care Teams Professor Of Poultry Science Relationship Specialty Start Date End Date Alicia Malcolm MD [address] [place] [address] PCP - General Internal Medicine 08/05/18 documented as of this encounter
--- OUTSIDE RECORDS SUMMARY | 2024-08-20 12:50 | XMS_ITS | Encounter Summary ---
Author Organization [facility] Address [address] [address] Phone Care Team Providers Care Fast Food Supervisor Name Role Phone Alicia Malcolm MD Primary Care Provider Reason for Visit * Reason Comments Med Refill Encounter Details Date Type Department Care Team (Late st Contact Info) Description 02/23/2019 Refill [facility] Nephrology and Hypertension [address] [place] [address], [address] [place] [address] Chester Longo MD [address] [facility], [address] [place] [address] Social History Tobacco Use Types Packs/Day Years [...] on filedocumented in this encounter Care Teams Fast Food Supervisor Relationship Specialty Start Date End Date Alicia Malcolm MD [address] [place] [address] PCP - General Internal Medicine 08/05/18 documented as of this encounter
--- OUTSIDE RECORDS SUMMARY | 2024-08-20 12:50 | XMS_ITS | Clinical Summary ---
Author Organization [facility] soto Address [address], [place] [address] Phone Care Team Providers Care Insurance Sales Associate Name Role Phone Alicia Malcolm MD Primary Care Provider Allergies Active Allergy Reactions Criticality Noted Date Comments Codeine Nausea Only Low Other reaction(s): Vomiting Hydrocodone Nausea Only,Other (s ee comments) Low Penicillins Hives,Rash Medium Sulfa Antibiotics Rash Medium Medications omeprazole (PRILOSEC) [address] capsule 1 tab qday 2 Active ergocalciferol (VITAMIN D-2) 77451 units capsule 1 tab/cap every week for 6 weeks, then every month 3 4 Active aspirin (ASPIR) 81 MG EC tablet 81 mg 5 Active fluticasone (FLONASE) 50 MCG/ACT nasal spray Administer 1 spray into affected nostril(s) daily Active gabapentin (NEURONTIN) 300 MG capsule 300 mg 5 Active cholecalciferol (Vitamin D-[address]) 25 MCG (1000 UT) tablet Take 1,000 Units by mouth daily Active naproxen sodium (ALEVE) 220 MG tablet Take 220 mg by mouth 2 times daily Active Loratadine 10 MG capsule Take by mouth Activ e esomeprazole (NexIUM) [address] capsule Take 40 mg by mouth daily Active minoxidil (LONITEN) 10 MG tablet TAKE 1 TABLET BY MOUTH DAILY 90 tablet 3 2 Active furosemide (LASIX) 40 MG tablet TAKE 3 TABLETS BY MOUTH DAILY 270 tablet 3 2 Active quinapril (ACCUPRIL) 40 MG tablet TAKE 1 TABLET BY MOUTH DAILY 90 tablet 3 2 Active levothyroxine (SYNTHROID) 200 MCG tablet TAKE 1 TABLET BY MOUTH DAILY 90 tablet 3 2 Active Active Problems Problem Noted Date Diagnosed [...] reflux disease without esophag itis 09/18/2011 Immunizations Immunization Administration Dates Next Due Influenza TIV (IM) [...] on file Legal Sex Male 8:22 AM [facility] Gender Identity Not on file Sexual Orientation [...] 2:28 PM CDT Height 185.4 cm (6' 1) 12/12/2020 2:28 PM CDT Body Mass Index 48.82 12/12/2020 2:28 PM CDT Plan of Treatment Health Maintenance Due Date Last Done Comments Influenza Vaccine (Season Ended) 2024 06/15/19 15 Pneumococcal PPSV23/PCV13 65 + Years / Low and Medium Risk Completed 01/12/2020, 01/21/2019 Insurance MEDICARE RAILROAD [facility] MEDICARE SUPPLEMENT Care Teams Insurance Sales Associate Relationship Specialty Start Date End Date Alicia Malcolm MD [address] [place] [address] PCP - General Internal Medicine 08/05/18
--- OUTSIDE RECORDS SUMMARY | 2024-08-20 12:50 | XMS_ITS | Encounter Summary ---
Author Organization [facility] Address [address] [address] Phone Care Team Providers Care Key Account Manager Name Role Phone Alicia Malcolm MD Primary Care Provider Reason for Visit * Reason Comments Med Refill Encounter Details Date Type Department Care Team (Late st Contact Info) Description 05/25/2019 [address]ill [facility] Nephrology and Hypertension [address] [place] [address], [address] [place] [address] Chester Longo MD [address] [facility] [place] [address] Social History Tobacco Use Types Packs/Day Years [...] on filedocumented in this encounter Care Teams Key Account Manager Relationship Specialty Start Date End Date Alicia Malcolm MD [address] [place] [address] PCP - General Internal Medicine 08/05/18 documented as of this encounter
--- OUTSIDE RECORDS SUMMARY | 2024-08-20 12:50 | XMS_ITS | Clinical Summary ---
Author Organization [facility] [address] Address [address] [place] [address] Care Team Providers Care Lockstitch Pocket Setter Name Role Phone Alicia Malcolm MD Primary Care Provider Allergies Active Allergy Reactions Criticality Noted Date Comments Codeine Nausea only,Vomiting Low Other reaction(s): Vomiting Hydrocodone Nausea only,Vomiting,Other (See comments) Low Penicillins Hives,Rash Medium Sulfa (Sulfonamide Antibiotics) Rash Medium Medications minoxidil (LONITEN) 10 mg tablet take 1 tablet by oral route every day 0 0 07/13/19 15 Active levothyroxine (LEVOTHROID) 200 mcg tablet take 1 by Oral route once 0 0 07/13/19 15 Active gabapentin (NEURONTIN) 300 mg capsule take 3 capsule by oral route 2 times every day 0 0 07/13/19 15 Active fluticasone (FLONASE) 50 mcg/actuation nasal spray Administer 1 spray into each nostril daily Active loratadine 10 mg capsule Take by mouth Activ e tamsulosin (FLOMAX) 0.4 mg extended release capsule Take 1 capsule (0.4 mg total) by mouth every morning Active metOLazone (ZAROXOLYN) 5 mg tablet Take 1 tablet (5 mg total) by mouth every 7 days 4 tablet 2 11/22/19 23 Active bumetanide (BUMEX) 1 mg tablet TAKE 3 TABLETS BY MOUTH 3 TIMES DAILY 810 tablet 3 12/17/19 23 Active Eliquis 5 mg tablet Take 1 tablet (5 mg total) by mouth 2 (two) times a day 180 tablet 3 01/08/20 23 Active spironolacton e (ALDACTONE) 25 mg tablet Take 1 tablet (25 mg total) by mouth daily 90 tablet 2 01/10/20 23 025 Active polyethylene glycol (MIRALAX) 17 gram/dose bulk powder Take 17 g by mouth daily Active metoprolol tartrate (LOPRESSOR) 50 mg immediate release tablet TAKE 1 TABLET BY MOUTH EVERY 12 HOURS 180 tablet 3 05/14/19 24 Active allopurinoL (ZYLOPRIM) 100 mg tablet Take 1 tablet (100 mg total) by mouth daily Active calcitRIOL (ROCALTROL) 1 mcg/mL solution Take by mouth daily Active docusate sodium (COLACE) 100 mg capsuleIndica tions:constip ation Take 1 capsule (100 mg total) by mouth 2 (two) times a day Active famotidine (PEPCID) 20 mg tablet Take 1 tablet (20 mg total) by mouth 2 (two) times a day Active acetaminophen (TYLENOL) 500 mg tablet Take 1 tablet (500 mg total) by mouth every 6 (six) hours as needed for pain Active acetaZOLAMIDE (DIAMOX) 250 mg tablet TAKE 1 TABLET BY MOUTH DAILY 90 tablet 3 08/15/19 25 Active acetaminophen (TYLENOL) 325 mg tablet Take 2 tablets (650 mg total) by mouth every 6 (six) hours as needed for pain 025 Discontinued(Aston arellano Reported) psyllium husk (METAMUCIL ORAL) Take by mouth 025 Discontinued(Pa eileen Reported) potassium chloride ER 20 mEq CR tablet Take 1 tablet (20 mEq total) by mouth 3 (three) times a day 2 Tablets TID 08/11/19 23 025 Discontinued(Aston arellano Reported) lansoprazole (PREVACID) 15 mg capsule Take 1 capsule (15 mg total) by mouth daily 025 Discontinued(Aston arellano Reported) acetaminophen 325 mg capsule Take by mouth 025 Discontinued(Aston arellano Reported) diazePAM (VALIUM) 2 mg tablet Take 0.5 tablets (1 mg total) by mouth 2 (two) times a day as needed for anxiety 025 Discontinued(Pa eileen Reported) oxyCODONE 5 mg tablet, oral only Take 5 mg by mouth every 4 (four) hours as needed 025 Discontinued(Pa tient Reported) cyclobenzapri ne (FLEXERIL) 10 mg tablet Take 1 tablet (10 mg total) by mouth 3 (three) times a day as needed for muscle spasms 025 Discontinued(Pa tient Reported) lanolin-mineralogy teacher al oil-white petrolatum (Minerin Creme) cream Apply topically 025 Discontinued(Pa tient Reported) potassium chloride ER 20 mEq CR tablet Take 2 tablets (40 mEq total) by mouth 3 (three) times a day 025 Discontinued(Pa tient Reported) acetaZOLAMIDE (DIAMOX) 250 mg tablet Take 1 tablet (250 mg total) by mouth daily 90 tablet 2 01/09/20 24 025 Discontinued lanolin-mineralogy teacher al oil lotion Apply topically 025 Discontinued(Pa tient Reported) Saccharomyces boulardii (FLORASTOR) 250 mg capsule Take 1 capsule (250 mg total) by mouth 2 (two) times a day 025 Discontinued(Pa tient Reported) HYDROcodone-a cetaminophen (NORCO) 5-325 mg per tabletIndicat ions:Pain Take 1 tablet by mouth every 6 (six) hours as needed 025 Discontinued(Pa tient Reported) potassium chloride ER 10 mEq CR tablet Take 1 tablet/capsule (10 mEq total) by mouth 2 (two) times a day 025 Discontinued(Pa tient Reported) senna-docusat e (PERICOLACE) 8.6-50 mg Take 1 tablet by mouth daily 025 Discontinued(Pa tient Reported) acetaminophen ER (TYLENOL) 650 mg 8 hr tablet Take 1 tablet (650 mg total) by mouth every 8 (eight) hours as needed for pain 025 Discontinued(Pa tient Reported) clindamycin (CLEOCIN) 300 mg capsule Take by mouth 3 (three) times a day 025 Discontinued(Pa tient Reported) bisacodyL (DULCOLAX) 10 mg suppositoryIn dications:con stipation Insert 1 suppository (10 mg total) into the rectum daily 025 Discontinued(Pa tient Reported) magnesium hydroxide (MILK OF MAGNESIA) suspension 400 mg/5 mL 025 Discontinued(Aston arellano Reported) Active Problems Problem Noted Date Diagnosed Date PVD (peripheral vascular disease) 08/12/2024 Assessment & Plan (08/12/2024 12:17 PM CDT): Patient with mildly abnormal lower extremity Doppler which is somewhat expected. No surgical procedural intervention is indicated or further surveillance required as patient is not a surgical candidate. Recommend continued compression therapy, leg elevation, occupational therapy. Follow up in the office on as needed basis. Venous insufficiency of both lower extremities 1 04/06/2023 Assessment & Plan (02/05/2024 11:38 AM PIPE FITTINGS MOLDER): Venous insufficiency noted to both lower extremities [...] Doppler. Hypokalemia 12/21/2022 Chronic heart failure with preserved ejection fr action 02/14/2021 Ectopic atrial rhythm 11/03/2020 RBBB 11/03/2020 [...] Resolved Date Chronic diastolic congestive heart failure 02/28/2021 09/27/2022 Chronic right-sided CHF (con gestive heart failure) 11/05/2017 05/13/2018 Encounters Date Type Department Care Team Description 08/12/2024 10:45 AM CDT Office Visit [facility] at [address] [place] [address] Roseanne Chamberlain PA PVD (peripheral vascular disease) (Primary Dx); Venous insufficiency of both lower extremities; Essential hypertension from Last 3 Months Medical History Medical History Date Comments CHF (congestive heart failure) (HCC) Chronic kidney disease Sleep apnea Shortness [...] on file Legal Sex Male 1:10 PM PIPE 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 MOLDER Gender Identity Not on file Sexual Orientation Not on file Obstetrics History Last Filed Vital Signs Vital Sign Reading Time Taken Comments Blood Pressure 104/62 08/12/2024 10:43 AM CDT Pulse 79 08/12/2024 10:43 AM CDT Temperature 36.8 C (98.2 F) 12/25/2019 11:12 AM CDT Respiratory Rate 15 02/04/2020 11:41 AM PIPE FITTINGS MOLDER Oxygen Saturation 98% 08/12/2024 10:43 AM CDT Inhaled Oxygen Concentration - - Weight 148.3 kg (327 lb) 08/12/2024 10:43 AM CDT Height 185.4 cm (6' 1) 08/12/2024 10:43 AM CDT Body Mass Index 43.14 08/12/2024 10:43 AM CDT Plan of Treatment Health Maintenance Due Date Last Done Comments Colon Cancer Screening-Colonoscopy 1950 Depression Screening 1950 Hepatitis C Screening 1950 DTaP/Tdap/Td Vaccine (1 - Tdap) 02/09/1960 Hepatitis B Screening 1967 Zoster Vaccine (1 of 2) 1999 Well Visit 65+ 2014 Fall Risk Assessment 02/03/2021 02/04/2020 Influenza Vaccine (Season Ended) 2024 01/12/2020, 01/21/2019, 01/10/2017, Additional history exists Pneumococcal vaccine 65+ Completed 01/12/2020, 12/31 Abdominal Aortic Aneurysm (A AA) Screen Completed 07/28/2021 Insurance MEDICARE RAILROAD MEDICARE RAILROAD [facility] MEDICARE SUPPLEMENT Care Teams Lockstitch Pocket Setter Relationship Specialty Start Date End Date Alicia Malcolm MD [address] [facility] [place] [address] [place] [address] PCP - General Family Practice 05/14/24
--- OUTSIDE RECORDS SUMMARY | 2024-08-20 12:50 | XMS_ITS | Referral Summary ---
Author Organization [facility] [address] Address [address] [place] [address] Care Team Providers Care Drawer In Plain Loom Name Role Phone Alicia Malcolm MD Primary Care Provider Encounters Date Type Department Care Team Description 08/12/2024 10:45 AM CDT Office Visit [facility] at [address] [place] [id number] Roseanne Chamberlain PA PVD (peripheral vascular disease) (Primary Dx); Venous insufficiency of both lower extremities; Essential hypertension from Last 3 Months Allergies Active Allergy [...] husk (METAMUCIL ORAL) Take by mouth 025 Discontinued(Aston arellano Reported) potassium chloride ER 20 mEq CR tablet Take 1 tablet (20 mEq total) by mouth 3 (three) times a day 2 Tablets TID 08/11/19 23 025 Discontinued(Aston arellano Reported) lansoprazole (PREVACID) 15 mg capsule Take 1 capsule (15 mg total) by mouth daily 025 Discontinued(Pa tient Reported) acetaminophen 325 mg capsule Take by mouth Discontinued(Pa tient Reported) diazePAM (VALIUM) 2 mg tablet Take 0.5 tablets (1 mg total) by mouth 2 (two) times a day as needed for anxiety 025 Discontinued(Pa tient Reported) oxyCODONE 5 mg tablet, oral only Take 5 mg by mouth every 4 (four) hours as needed Discontinued(Pa tient Reported) cyclobenzapri ne (FLEXERIL) 10 mg tablet Take 1 tablet (10 mg total) by mouth 3 (three) times a day as needed for muscle spasms 025 Discontinued(Pa tient Reported) lanolin-underground miner al oil-white petrolatum (Minerin Creme) cream Apply topically Discontinued(Pa tient Reported) potassium chloride ER 20 mEq CR tablet Take 2 tablets (40 mEq total) by mouth 3 (three) times a day 025 Discontinued(Pa tient Reported) acetaZOLAMIDE (DIAMOX) 250 mg tablet Take 1 tablet (250 mg total) by mouth daily 90 tablet 2 01/09/20 24 025 Discontinued lanolin-underground miner al oil lotion Apply topically Discontinued(Pa tient Reported) Saccharomyces boulardii (FLORASTOR) 250 [...] 8 (eight) hours as needed for pain Discontinued(Pa tient Reported) clindamycin (CLEOCIN) 300 mg capsule Take by mouth 3 (three) times a day 025 Discontinued(Aston arellano Reported) bisacodyL (DULCOLAX) 10 mg suppositoryIn dications:con stipation Insert 1 suppository (10 mg total) into the rectum daily 025 Discontinued(Aston arellano Reported) magnesium hydroxide (MILK OF MAGNESIA) suspension [...] 04/06/2023 Assessment & Plan (02/05/2024 11:38 AM YARD COORDINATOR): Venous insufficiency noted to both lower extremities [...] CHF (con gestive heart failure) 11/05/2017 05/13/2018 Social History Tobacco Use Types Packs/Day Years Used Date Smoking Tobacco: Former Alcohol Use Standard Drinks/Week Comments Yes 0 (1 standard drink = 0.6 oz pur e alcohol) Sex and Gender Information Value Date Recorded Sex Assigned at Not on file Legal Sex Male 1:10 PM YARD COORDINATOR Gender Identity Not on file Sexual Orientation Not on file Last Filed Vital Signs Vital Sign Reading Time Taken Comments Blood Pressure 104/62 08/12/2024 10:43 AM CDT Pulse 79 08/12/2024 10:43 AM CDT Temperature 36.8 C (98.2 F) 12/25/2019 11:12 AM CDT Respiratory Rate 15 02/04/2020 11:41 AM YARD COORDINATOR Oxygen Saturation 98% 08/12/2024 10:43 AM CDT Inhaled Oxygen Concentration - - Weight 148.3 kg (327 lb) 08/12/2024 10:43 AM CDT Height 185.4 cm (6' 1) 08/12/2024 10:43 AM CDT Body Mass Index 43.14 08/12/2024 10:43 AM CDT Plan of Treatment Not on file Insurance MEDICARE RAILROAD [place] [address] [place] [address] MEDICARE SUPPLEMENT Care Teams Drawer In Plain Loom Relationship Specialty Start Date End Date Alicia Malcolm MD [address] [place] [address] [address] [place] [address] PCP - General Family Practice 05/14/24
--- OUTSIDE RECORDS SUMMARY | 2024-08-20 12:50 | XMS_ITS | Clinical Summary ---
Author Organization [facility] Address [address] [place] [address] Care Team Providers Care Product Development Technician Name Role Phone Taco Ho MD Primary Care Provider [phone] Source Comments [facility],non-kindred hospital Affiliates and Associated Physician Practices is amultiple site organization consisting of ambulatory clinics and hospital sitesin [place], [place], [place] and [place]. This disclosure is being madepursuant to the Care Everywhere program and may not contain all information available regarding this patient. Last updated 17.[facility] Allergies Active Allergy Reactions Criticality Noted Date Comments Codeine Nausea and/or Vomiting 07/29/2021 Hydrocodone Unknown 07/29/2021 Penicillins Swelling 07/29/2021 Sulfa Drugs Nausea and/or Vomiting 07/29/2021 Tramadol Unknown 07/29/2021 Medications * Be aware that medications may not be up to date on this document. Alwaysverify current medications with the patient. acetaZOLAMIDE (DIAMOX) 250 MG tablet Take 500 mg by mouth 2 times daily 2 Active ELIQUIS 5 MG tablet Take 5 mg by mouth every 12 hours 2 Active bumetanide (BUMEX) 2 MG tablet TAKE 1 TABLET BY MOUTH 2 TIMES A DAY. 2 Active fluticasone propionate (FLONASE) 50 MCG/ACT nasal spray Ashley 1 spray into the nose once daily Active metoprolol tartrate (LOPRESSOR) 50 MG tablet Take 50 mg by mouth every 12 hours 2 Active minoxidil (LONITEN) 2.5 MG tablet Take 5 mg by mouth once daily 2 Active nitroGLYCERIN (NITROSTAT) 0.4 MG tablet TAKE 1 TABLET SUBLINGUAL EVERY 5 MINUITES NEEDED FOR CHEST PAIN 2 Active predniSONE (DELTASONE) 10 MG tablet PLEASE SEE ATTACHED FOR DETAILED DIRECTIONS 1 Active tamsulosin (FLOMAX) 0.4 MG capsule Take 0.4 mg by mouth every morning 2 Active aspirin (ASPIRIN) 81 MG chew tablet Take 1 (one) tablet by mouth once daily 30 tablet 2 Active acetaminophen (TYLENOL) 325 MG tablet Take 2 (two) tablets by mouth every 8 hours Maximum allowable Acetaminophen amount = 4 Grams (4000 mg) / 24 hours. 90 tablet 2 Active gabapentin (NEURONTIN) 300 MG capsule Take 1 (one) capsule by mouth 3 times daily 90 capsule 2 Active lidocaine (LIDODERM) 5 % patch Apply 1 (one) patch to skin every 24 hours 30 patch 2 Active polyethylene glycol 3350 (MIRALAX) 17 g packet Take 17 (seventeen) g by mouth once daily as needed for Constipation 30 packet 2 Active senna (SENOKOT) 8.6 MG tablet Take 1 (one) tablet by mouth once daily as needed for Constipation 30 tablet 2 Active levothyroxine (SYNTHROID) 200 MCG tablet Take 1 (one) tablet by mouth once daily 30 tablet 2 Active alendronate (FOSAMAX) 10 MG tablet Take 7 (seven) tablets by mouth every 7 days 30 tablet 2 Active furosemide (LASIX) 40 MG tablet Take 1 (one) tablet by mouth once daily 30 tablet 2 Active benzonatate (TESSALON) 100 MG capsule Take 1 (one) capsule by mouth 3 times daily 90 capsule 2 Active guaiFENesin ER 12hr (MUCINEX) 600 MG tablet Take 1 (one) tablet by mouth every 12 hours 60 tablet 2 Active lidocaine viscous (XYLOCAINE) 2 % solution 5 mL by Mouth/Throat route once daily as needed for Sore Throat (Throat irritation/cough) 100 mL 2 Active oxyCODONE-acet aminophen (Percocet) 2.5-325 MG tablet Take 1 tablet [...] at Not on file Legal Sex Male 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 Gender Identity Not on file Sexual Orientation [...] 1:49 PM CDT Height 185.4 cm (6' 1) 12/12/2021 1:49 PM CDT Body Mass Index [...] VACCINE (1 - 2023-2 5 season) 2023 Respiratory Syncytial Virus (RSV) Vaccine Pt: or over 60 yrs (1 - 1-dose 75+ series) 02/09/2024 DEPRESSION SCREENING 04/01/2024 INFLUENZA VACCINE (Season Ended) 2024 01/12/2020, 06/14/2014 HEPATITIS C SCREENING Completed 07/28/2021 HEPATITIS B VACCINE Aged Out No longe r eligible based on patient's age to complete this topic HIB VACCINE Aged Out No longer eligi ble based on patient's age to complete this topic HPV VACCINE Aged Out No longer eligi ble based on patient's age to complete this topic MENINGOCOCCAL (Group B) VACCINE SHARED DECISION-MAKING Aged Out No longer eligible based on patient's age to complete this topic MENINGOCOCCAL GROUPS A/C/Y/W VACCINE Aged Out No longer eligible b ased on patient's age to complete this topic Medical Devices Implanted Type Area Vacuum Extractor Operator Device Identifier Shelf Expiration Date Model / Serial / Lot Biomet Polyax Proximal Tibial/Distal Femoral Locking Plating System 5.5mm Ft Polyu Locking Screws Implanted:Qty: 2 on 08/02/2021 by Anibal Pressley DO at [facility] Right: Femur [id number] / / Biomet Polyax Proximal Tibial/Distal Femoral Locking Plating System 8.0mm Cannulated Locking Screw Implanted:Qty: 1 on 08/02/2021 by Anibal Pressley DO at [facility] Right: [employer] [id number] / / Biomet Polyax Proximal Tibial/Distal Femoral Locking Plating System 4.5mm Solid Cortical Bone Screw, Ft Implanted:Qty: 2 on 08/02/2021 by Anibal Pressley DO at [facility] Right: Femur [id number] / / Biomet Polyax Proximal Tibial/Distal Femoral Locking Plating System 5.5mm Ft Polyu Locking Screws Implanted:Qty: 1 on 08/02/2021 by Anibal Pressley DO at [facility] Right: Femur [id number] / / Biomet Polyax Proximal Tibial/Distal Femoral Locking Plating System 5.5mm Ft Polyu Locking Screws Implanted:Qty: 1 on 08/02/2021 by Anibal Pressley DO at [facility] Right: Femur [id number] / / Wire K 1.6mm 6in Hlf Bynt Pnt Ss Fx Implanted:Qty: 2 on 08/02/2021 by Anibal Pressley DO at [facility] [employer] [id number] / / Screw 3.5mm 5mm 60mm Ft Rvrs Cut Flut Implanted:Qty: 1 on 08/02/2021 by Anibal Pressley DO at [facility] Right: Femur [employer] [id number] / / Screw 3.5mm 5mm 80mm Ft Rvrs Cut Flut Implanted:Qty: 1 on 08/02/2021 by Anibal Pressley DO at [facility] Right: Femur [employer] [id number] / / Plate 9 Hl Lck Precontr Fem Rt Dist Implanted:Qty: 1 on 08/02/2021 by Anibal Pressley DO at [facility] Right: Femur [employer] [id number] / / Screw 3.5mm 5mm 85mm Ft Rvrs Cut Flut Implanted:Qty: 1 on 08/02/2021 by Anibal Pressley DO at [facility] Right: Femur [employer] [id number] / / Screw 3.5mm 5mm 90mm Ft Rvrs Cut Flut Implanted:Qty: 1 on 08/02/2021 by Anibal Pressley DO at [facility] Right: Femur [employer] [id number] / / Biomet Polyax Proximal Tibiasl/Distal Femoral Lociking Plating System 5.5 Mm Ft Poly Locking Screw Implanted:Qty: 2 on 08/02/2021 by Anibal Pressley DO at [facility] Right: Femur [employer] [id number] / / Biomet Polyax Proximal Tibial/Diatal Femoral Locking Plating System 4.5mm Solid Cortical Bone Screw, Ft Implanted:Qty: 1 on 08/02/2021 by Anibal Pressley DO at [facility] Right: Femur [employer] [id number] / / Explanted Type Area Vacuum Extractor Operator Device Identifier Shelf Expiration Date Model / Serial / Lot Wire K 2mm 228mm Troc Pnt Ss Prlc Plate Explanted:Qty: 2 on 08/02/2021 at [facility] Right: Femur [employer] 01/13/2031 [id number] / / [id number] Biomet Polyax Proximal Tibial/Distal Femoral Locking Plating System 5.5mm Ft Polyu Locking Screws Explanted:Qty: 2 on 08/02/2021 by Anibal Pressley DO at [facility] Right: Femur [id number] / / Biomet Polyax Proximal Tibial/Distal Femoral Locking Plating System 5.5mm Ft Polyu Locking Screws Explanted:Qty: 2 on 08/02/2021 by Anibal Pressley DO at [facility] Right: Femur [id number] / / Gd Pin Orth 3.2mm Polyax Fem Clbrt Lck Explanted:Qty: 1 on 08/02/2021 at [facility] [employer] [id number] / / Wshr Orth Ss 3.5-4 Mm Cecilia Screw Nonster Explanted:Qty: 3 on 08/02/2021 at [facility] [employer] [id number] / / Screw 3.5mm 5mm 85mm Ft Rvrs Cut Flut Explanted:Qty: 1 on 08/02/2021 by Anibal Pressley DO at [facility] Right: Femur [employer] [id number] / / Procedures Procedure Name Priority Date/Time Associated Diagnosis Comments HEPATITIS C AB SCREEN RFLX NAAT QUANT STAT 07/28/2021 1:43 PM CDT from Last 3 Months or Most Recently Relevant to Health Maintenance Results * HEPATITIS C AB SCREEN RFLX NAAT QUANT (07/28/2021 1:43 PM CDT) Hepatitis C Antibody Non-react oma Non-reac tive 07/28/2021 2:31 PM CDT [facility] Comment:Hepatitis C Antibody screen indicates no [...] 1:43 PM CDT 07/28/2021 1:49 PM CDT us Ross Nelson MD LAB - CHEMISTRY ORDERABLES nal Result [facility] [address] [place] [id number], [facility] [phone] from Last 3 Months or Most Recently Relevant to Health Maintenance Insurance MEDICARE [facility] [place] [id number] MEDICARE Advance Directives * Full Code (Latest Code Status on File) Date Activated Date Inactivated Comments 07/29/2021 1:11 AM 08/11/2021 10:19 PM Care Teams Product Development Technician Relationship Specialty Start Date End Date Taco Ho MD [address] [place] [address] PCP - General 08/07/21
[2024-08-20 13:39] LABS: Lactic Acid Reflex 1.5 mmol/L (0.7-2.0)
--- NOTE | 2024-08-20 15:56 | ED.GENADULT ---
HPI - General Adult General Chief complaint: Wound/Laceration Stated complaint: FOOT WOUND Time Seen by Provider: 08/20/24 12:44 History of Present Illness HPI narrative: Patient is a 74-year-old male who presents ER with a right foot wound. Located between the 1st and 2nd digit. It is bruising. He has chronic weeping and swelling to his right lower extremity that has worsened over last week. Mild erythema to the foot. Noticed a fetid odor over last 2 days. He was seen by vascular surgery at [facility], Dr. Daniels will last 2 weeks and was told that there were no procedures to increased vascular flow to his leg. Related Data Home Medications ?Medication ?Instructions ?Recorded ?Confirmed ?Last Taken ?Type loratadine 10 mg tablet (Claritin) 10 mg PO DAILY PRN allergy symptoms 07/12/20 08/20/24 08/20/24 History polyethylene glycol 3350 17 17 g PO DAILY PRN Constipation 06/02/21 08/20/24 03/04/24 History gram/dose oral powder (Miralax) acetazolamide 250 mg tablet 250 mg PO DAILY 11/19/22 08/20/24 08/20/24 History fluticasone propionate 50 1 spray intranasal DAILY Congestion 11/19/22 08/20/24 08/20/24 History mcg/actuation nasal spray,suspension (Flonase Allergy Relief) acetaminophen 325 mg tablet 500 mg PO Q4H PRN Mild Pain (1-3) 01/15/24 08/20/24 03/04/24 History Or Fever docusate sodium 100 mg capsule 100 mg PO Q12H PRN constipation 05/13/24 08/20/24 Unknown History metolazone 5 mg tablet 5 mg PO DAILY 08/04/24 08/20/24 08/20/24 History minoxidil 2.5 mg tablet 2.5 mg PO DAILY 08/04/24 08/20/24 08/20/24 08:00 History 2.5 mg potassium chloride 10 mEq 10 meq PO DAILY PRN leg cramping 08/04/24 08/20/24 Unknown History capsule,extended release Allergies Allergy/AdvReac Type Severity Reaction Status Date / Time Sulfa (Sulfonamide Allergy Mild Rash Verified 08/20/24 11:38 Antibiotics) Penicillins Allergy Unknown SWELLING Verified 08/20/24 11:38 codeine AdvReac Mild N/V Verified 08/20/24 11:38 hydrocodone AdvReac Mild N/V Verified 08/20/24 11:38 oxycodone (From OxyContin) AdvReac Mild Nausea Verified 08/20/24 11:38 tramadol AdvReac Mild Nausea Verified 08/20/24 11:38 Review of Systems Review of Systems: All systems reviewed & are unremarkable except as noted in HPI and below Constitutional: Constitutional: Reports no additional constitutional complaints ENT: Reports system reviewed and no additional complaints, except as documented Cardiovascular: Cardiovascular: Reports no additional cardiovascular complaints Respiratory: Respiratory: Reports no additional respiratory complaints Gastrointestinal: Gastrointestinal: Reports no additional gastrointestinal complaints Musculoskeletal: Musculoskeletal: Reports no additional musculoskeletal complaints [facility] Past Medical History Medical History Self-care deficit Peripheral vascular disease Morbid obesity with body mass index (BMI) of 40.0 or higher Neuropathic pain Gout Sepsis Chronic acquired lymphedema Chronic anemia Obstructive sleep apnea Atrial fibrillation Lymphedema of both lower extremities Environmental allergies Ocular rosacea Rosacea Chronic low back pain Chronic venous insufficiency GERD without esophagitis Chronic congestive heart failure Echocardiogram in May 2021 was technically difficult and showed normal LV systolic function with an EF of 60 to 65%, severely enlarged RV chamber with moderate to severely reduced RV systolic function, severe biatrial enlargement, and moderate pulmonary hypertension. Dyslipidemia Essential (primary) hypertension Peripheral polyneuropathy Hypothyroidism Surgical History Surgical History History of carpal tunnel release History of thoracic surgery Pericardial effusion s/p pericardial window thought secondary to minoxidil, in 2010 at [facility]. H/O eye surgery (~2005) [phone] [facility] History of foot surgery Left Foot History of cholecystectomy (2008) History of rotator cuff surgery Bilateral. History of discectomy (2012) Family History Family History Father Cardiovascular disease Grandparent Cancer Mother COPD (chronic obstructive pulmonary disease) Social History Social History Social History: Surrogate medical decision maker: Shyla Hurst, daughter. Code status: Full code. Caffeine-decalf coffee, diet soda Smoking packs per day: 2 Smoking cigarettes per day: 40.0 Years smoked: 20 Smoking pack-years: 40.00 Smoking status: Former smoker Second hand tobacco smoke exposure: No Additional smoking assessment comments: 1979 Alcohol intake: former Alcohol use details: One beer daily. Substance use: never Substance use type: does not use Do You Feel Safe in your Home?: Yes Lack of Transportation: No Lack of Food: Never True Current Housing: I Have Housing Concerned About Future Housing: No Difficulty Paying Gas/Electric Bills: No Difficulty Paying for Meds: No Currently Unemployed: No Education: High School Diploma/GED Difficulty w/ Childcare or Family Care: No Living arrangements: alone Additional living arrangements comments: Lives in own home in [place]. Uses a motorized scooter and transfers with slide board. Occupation/Education: retired Additional occupation/education comments: Retired. 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 Spiritual care concerns: No Exam Narrative: GENERAL: Chronically ill-appearing, morbidly obese, and in no acute distress. HEAD: Normocephalic, atraumatic. ENT: Mucous membranes moist. NECK: Supple. CHEST: Clear to auscultation. No respiratory distress. HEART: Regular rate and rhythm. Normal peripheral pulses. ABDOMEN: Soft, nontender, nondistended. EXTREMITIES: Normal range of motion. Chronic edema bilateral lower extremities that is symmetric. Weeping below the knee on the right side.. SKIN: Warm, moist lower extremities specially the right leg. Ulcerations between the 1st and 2nd toe with foul smell but no overt necrosis. Couple areas of bruising noted. NEURO: Alert and oriented x3. PSYCH: Normal mood and affect. Course Course Emergency Course: Admit to hospitalist service for IV antibiotics wound service consult. Vital Signs Vital signs: Vital Signs Temperature 97.9 F 08/20/24 11:28 Pulse Rate 71 08/20/24 11:28 Respiratory Rate 20 08/20/24 11:28 Blood Pressure 111/70 08/20/24 11:28 Pulse Oximetry 100 08/20/24 11:28 Oxygen Delivery Room Air 08/20/24 11:28 Temperature 97.8 F 08/20/24 21:31 Pulse Rate 80 08/20/24 22:15 Respiratory Rate 18 08/20/24 21:31 Blood Pressure 121/61 08/20/24 21:31 Pulse Oximetry 95 08/20/24 21:31 Oxygen Delivery Room Air 08/20/24 11:28 Fraction of Inspired Oxygen 08/20/24 20:32 Medical Decision Making Vital Signs Vital Signs: Vital Signs Temperature 97.9 F 08/20/24 11:28 Pulse Rate 71 08/20/24 11:28 Respiratory Rate 20 08/20/24 11:28 Blood Pressure 111/70 08/20/24 11:28 Pulse Oximetry 100 08/20/24 11:28 Oxygen Delivery Room Air 08/20/24 11:28 Temperature 97.8 F 08/20/24 21:31 Pulse Rate 80 08/20/24 22:15 Respiratory Rate 18 08/20/24 21:31 Blood Pressure 121/61 08/20/24 21:31 Pulse Oximetry 95 08/20/24 21:31 Oxygen Delivery Room Air 08/20/24 11:28 Fraction of Inspired Oxygen 08/20/24 20:32 Lab Data 08/20/24 12:02 08/20/24 12:02 Labs: Lab Results 08/20/24 08/20/24 Range/Units 12:02 13:19 WBC 9.6 (4.5-10.0) K/mm3 RBC 3.71 L (4.6-6.20) M/mm3 Hgb 9.5 L (14.0-18.0) g/dL Hct 34.1 L (42.0-52.0) % MCV 91.9 (80-100) fl MCH 25.6 L (26-34) pg MCHC 27.9 L (32-36) g/dl RDW 16.0 H (11.5-14.5) % Plt Count 349 (150-375) k/mm3 MPV 9.9 (7.4-10.4) fl Immature Gran % (Auto) 0.6 H (0-0.5) % Neut % (Auto) 83.2 H (45.5-73.1) % Lymph % (Auto) 4.6 L (18.3-44.2) % Mcdonald % (Auto) 7.3 (2.6-8.5) % Eos % (Auto) 3.7 (0-4.4) % Baso % (Auto) 0.6 (0.2-1.2) % Lymph # (Auto) 0.44 L (0.9-3.2) K/mm3 Mcdonald # (Auto) 0.7 H (0.1-0.6) K/mm3 Eos # (Auto) 0.4 H (0-0.3) K/mm3 Baso # (Auto) 0.1 (0.0-0.1) K/mm3 Abs Immat Gran (auto) 0.06 H (0.00-0.031) K/mm3 Absolute Neuts (auto) 8.0 H (1.3-6.7) K/mm3 Absolute Nucleated RBC 0.000 (0.0-0.012) K/mm3 Nucleated RBC % 0.0 (0.0-0.2) % Sodium 133 L (137-145) mmol/L Potassium 3.6 (3.4-5.0) mmol/L Chloride 96 L (98-107) mmol/L Carbon Dioxide 28 (22-30) mmol/L Anion Gap 9 (4-12) mmol/L BUN 60 H D (9-20) mg/dL Creatinine 2.48 H (0.7-1.3) mg/dL Estim Creat Clear Calc 37 ml/min Estimated GFR 26 L (59 - ) Glucose 104 (65-110) mg/dL Lactic Acid 1.5 (0.7-2.0) mmol/L Calcium 8.2 L (8.4-10.2) mg/dL Total Bilirubin 0.3 (0.2-1.3) mg/dL AST 17 (17-59) U/L ALT 9 (6-50) U/L Alkaline Phosphatase 39 (38-126) U/L Total Protein 6.0 L (6.3-8.2) g/dL Albumin 3.5 (3.5-5.1) g/dL Imaging Data Radiologist's impression: ITS Impressions Ankle X-Ray 08/20/24 12:55 IMPRESSION: Lucency over the right lateral malleolus. Follow-up advised. 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 Tibia/Fibula X-Ray 08/20/24 13:03 IMPRESSION: No definite acute osseous abnormality right leg. Lucencies in the area of the medial and lateral malleoli which may be summation shadows. Clinical correlation and follow-up advised.. Foot X-Ray 08/20/24 13:07 Impression: Extensive soft tissue swelling. No definite evidence for osteomyelitis. Discharge Plan Discharge Clinical Impression: Right foot infection Patient Disposition: Still a Patient Condition: Stable
[2024-08-20] MEDS: metroNIDAZOLE 500 MG/ISO 100ML 500 MG/100 ML BAG 100 MG IVPB (16:30)
[2024-08-20] MEDS: levoFLOXacin 750 MG/D5W 150 ML 750 MG/150 ML BAG 100 MG IVPB (17:40)
[2024-08-20] MEDS: ACETAMINOPHEN 325 MG TABLET 650 MG PO (17:44)
--- NOTE | 2024-08-20 17:53 | P.HP_ITS ---
H&P: HPI History of Present Illness Date/Time: 08/20/24 17:53 Chief Complaint: Foot Wound Narrative: 74 y/o M with PMH of peripheral vascular disease, gout, chronic lymphedema of the BLE, chronic anemia, AMELIA, AFib, rosacea, GERD, CHF, dyslipidemia, hypertension, peripheral polyneuropathy, and hypothyroidism presents here with a chronic right foot wound. The patient presents here from home on 08/20 for further evaluation of a chronic right foot wound. He he reports the wound has been present for the past 3 years. Last admitted for this wound from 05/14/24-05/19/24. He reports he has been doing wound care at home daily in order to take care of this wound and has home therapy once weekly. He reports he then noted a foul smell and increased drainage with yellow appearance 2-3 days ago. Patient has been following with Chris DE LEON for his vascular care. He had recent follow-up with his provider in June and was reportedly told there are no further interventions to increase flow to his affected extremity. He denies accompanying fever, chills, body aches, or diaphoresis. Initial VS at presentation: 97.9? F, HR 71, RR 20, 111/70, and 100% on RA. ED workup showed: No leukocytosis, hemoglobin 9.5 (at baseline), sodium 133 (at baseline), creatinine 2.48 and GFR 26 (previously 2.23 and GFR 29 on 05/19/2024).. Ankle XR showed a lucency over the right lateral malleolus and osteoarthritic changes the ankle and subtalar joints. Tib/fib XR showed no definite acute osseous abnormality of the right leg and lipases in the area of the medial and lateral malleoli which may be summation shadows. Foot XR showed extensive soft tissue swelling and no definite evidence of osteomyelitis. Review of Systems Review of Systems: All systems reviewed & are unremarkable except as noted in HPI and below PMFSH Past Medical History Medical History Self-care deficit Peripheral vascular disease Morbid obesity with body mass index (BMI) of 40.0 or higher Neuropathic pain Gout Sepsis Chronic acquired lymphedema Chronic anemia Obstructive sleep apnea Atrial fibrillation Lymphedema of both lower extremities Environmental allergies Ocular rosacea Rosacea Chronic low back pain Chronic venous insufficiency GERD without esophagitis Chronic congestive heart failure Echocardiogram in May 2021 was technically difficult and showed normal LV systolic function with an EF of 60 to 65%, severely enlarged RV chamber with moderate to severely reduced RV systolic function, severe biatrial enlargement, and moderate pulmonary hypertension. Dyslipidemia Essential (primary) hypertension Peripheral polyneuropathy Hypothyroidism Surgical History Surgical History History of carpal tunnel release History of thoracic surgery Pericardial effusion s/p pericardial window thought secondary to minoxidil, in 2010 at [facility]. H/O eye surgery (~2005) [id number] [facility] History of foot surgery Left Foot History of cholecystectomy (2008) History of rotator cuff surgery Bilateral. History of discectomy (2012) Family History Family History Father Cardiovascular disease Grandparent Cancer Mother COPD (chronic obstructive pulmonary disease) Social History Social History Social History: Surrogate medical decision maker: Shyla Hurst, daughter. Code status: Full code. Caffeine-decalf coffee, diet soda Smoking packs per day: 2 Smoking cigarettes per day: 40.0 Years smoked: 20 Smoking pack-years: 40.00 Smoking status: Former smoker Second hand tobacco smoke exposure: No Additional smoking assessment comments: 1978 Alcohol intake: former Alcohol use details: One beer daily. Substance use: never Substance use type: does not use Do You Feel Safe in your Home?: Yes Lack of Transportation: No Lack of Food: Never True Current Housing: I Have Housing Concerned About Future Housing: No Difficulty Paying Gas/Electric Bills: No Difficulty Paying for Meds: No Currently Unemployed: No Education: High School Diploma/GED Difficulty w/ Childcare or Family Care: No Living arrangements: alone Additional living arrangements comments: Lives in own home in [place]. Uses a motorized scooter and transfers with slide board. Occupation/Education: retired Additional occupation/education comments: Retired. 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 Spiritual care concerns: No Meds Home Medications and Allergies Home Medications ?Medication ?Instructions ?Recorded ?Confirmed ?Type loratadine 10 mg tablet (Claritin) 10 mg PO DAILY PRN allergy symptoms 07/12/20 08/20/24 History polyethylene glycol 3350 17 17 g PO DAILY PRN Constipation 06/02/21 08/20/24 History gram/dose oral powder (Miralax) apixaban 5 mg tablet (Eliquis) 5 mg PO Q12HR #180 tabs 01/19/22 08/20/24 Rx metoprolol tartrate 50 mg tablet 50 mg PO Q12HR #180 tabs 01/19/22 08/20/24 Rx acetazolamide 250 mg tablet 250 mg PO DAILY 11/19/22 08/20/24 History fluticasone propionate 50 1 spray intranasal DAILY Congestion 11/19/22 08/20/24 History mcg/actuation nasal spray,suspension (Flonase Allergy Relief) lanolin alcohols-mineral 1 applic topical BID #113 grams 03/25/23 08/20/24 Rx oil-w.petrolatum-ceresin topical cream (Minerin Creme topical) spironolactone 25 mg tablet 25 mg PO DAILY #30 tabs 04/06/23 08/20/24 Rx calcitriol 0.25 mcg capsule 0.25 mcg PO 3XW #36 caps 10/30/23 08/20/24 Rx acetaminophen 325 mg tablet 500 mg PO Q4H PRN Mild Pain (1-3) 01/15/24 08/20/24 History Or Fever docusate sodium 100 mg capsule 100 mg PO Q12H PRN constipation 05/13/24 08/20/24 History gabapentin 300 mg capsule 300 mg PO TID #270 caps 05/14/24 08/20/24 Rx bumetanide 1 mg tablet See Rx Instructions .Route 06/29/24 08/20/24 Rx .COMPLEX #270 tabs allopurinol 100 mg tablet 100 mg PO DAILY #10 tabs 08/04/24 08/20/24 Rx allopurinol 100 mg tablet 100 mg PO DAILY@0800 #90 tabs 08/04/24 08/20/24 Rx famotidine 20 mg tablet 20 mg PO BID #180 tabs 08/04/24 08/20/24 Rx levothyroxine 200 mcg tablet 200 mcg PO DAILY #90 tabs 08/04/24 08/20/24 Rx metolazone 5 mg tablet 5 mg PO DAILY 08/04/24 08/20/24 History minoxidil 2.5 mg tablet 2.5 mg PO DAILY 08/04/24 08/20/24 History potassium chloride 10 mEq 10 meq PO DAILY PRN leg cramping 08/04/24 08/20/24 History capsule,extended release tamsulosin 0.4 mg capsule 0.4 mg PO QAM #90 caps 08/04/24 08/20/24 Rx Allergies Allergy/AdvReac Type Severity Reaction Status Date / Time Sulfa (Sulfonamide Allergy Mild Rash Verified 08/20/24 11:38 Antibiotics) Penicillins Allergy Unknown SWELLING Verified 08/20/24 11:38 codeine AdvReac Mild N/V Verified 08/20/24 11:38 hydrocodone AdvReac Mild N/V Verified 08/20/24 11:38 oxycodone (From OxyContin) AdvReac Mild Nausea Verified 08/20/24 11:38 tramadol AdvReac Mild Nausea Verified 08/20/24 11:38 Vital Signs Vital Signs - 24 hr 08/20/24 11:28 08/20/24 11:37 08/20/24 12:01 Temperature 97.9 F Pulse Rate 71 70 73 Respiratory Rate 20 20 15 Blood Pressure 111/70 111/70 114/60 Pulse Oximetry 100 100 98 Oxygen Delivery Room Air 08/20/24 12:16 08/20/24 12:31 08/20/24 14:30 Temperature Pulse Rate 65 75 71 Respiratory Rate 14 14 14 Blood Pressure 109/57 L 107/82 100/53 L Pulse Oximetry 99 100 Oxygen Delivery 08/20/24 14:31 08/20/24 14:46 08/20/24 15:01 Temperature Pulse Rate 71 72 68 Respiratory Rate 18 15 13 Blood Pressure 100/53 L 110/54 L 110/59 L Pulse Oximetry 99 98 97 Oxygen Delivery 08/20/24 15:16 08/20/24 15:31 08/20/24 15:46 Temperature Pulse Rate 66 66 71 Respiratory Rate 14 12 13 Blood Pressure 113/52 L 106/56 L 112/61 Pulse Oximetry 96 99 99 Oxygen Delivery 08/20/24 16:01 08/20/24 16:16 08/20/24 16:31 Temperature Pulse Rate 72 70 77 Respiratory Rate 14 12 12 Blood Pressure 103/58 L 101/59 L 94/60 L Pulse Oximetry 97 98 Oxygen Delivery 08/20/24 17:49 Temperature Pulse Rate 78 Respiratory Rate 13 Blood Pressure 102/53 L Pulse Oximetry 100 Oxygen Delivery Exam Const: General: comfortable and no acute distress Other: , male, obese body habitus, nontoxic appearance HENMT: Face/Nose/Sinus: Normal nares present Mouth: Yes moist mucous membranes Eyes: General: appearance normal, both eyes and all related structures Sclera: sclerae normal Pupils: Equal, round and reactive pupils present EOM: EOMs intact bilaterally Resp: Effort & Inspection: normal respiratory effort Auscultation: clear to auscultation bilaterally Cardio: Rate: regular rate Rhythm: regular rhythm Other: S1-S2 present without murmur, rub, ectopy GI: Other: Abdomen soft, nondistended, nontender. Normoactive bowel sounds in all quadrants. Skin: General skin exam: normal color Other: Significant erythema and swelling to right foot. Skin sloughing, very malodorous, perennial and yellow drainage. Drainage worse between 1st and 2nd toe. Neuro: Speech: normal speech Motor exam (neuro): 5/5 motor strength present throughout Sensory Exam: normal sensation Other: A&O x4 Extrem: Other: Significant lymphedema to bilateral lower extremities. See skin exam for right foot. Psych: Mental Status: mental status grossly normal Affect: normal affect Other: Good insight and judgment, very pleasant H&P: Results Labs Labs: Short CBC 08/20/24 Range/Units 12:02 WBC 9.6 (4.5-10.0) K/mm3 Hgb 9.5 L (14.0-18.0) g/dL Hct 34.1 L (42.0-52.0) % Plt Count 349 (150-375) k/mm3 BMP 08/20/24 12:02 Sodium 133 L Potassium 3.6 Chloride 96 L Carbon Dioxide 28 BUN 60 H D Creatinine 2.48 H Glucose 104 Calcium 8.2 L Liver Function 08/20/24 Range/Units 12:02 Total Bilirubin 0.3 (0.2-1.3) mg/dL AST 17 (17-59) U/L ALT 9 (6-50) U/L Alkaline Phosphatase 39 (38-126) U/L Albumin 3.5 (3.5-5.1) g/dL Assessment and Plan Assessment and plan (1) Venous stasis ulcer of right foot: Code(s): I83.015 - Varicose veins of right lower extremity with ulcer other part of foot Status: Acute Assessment and Plan: - ankle XR: Lucency over the right lateral malleolus. Follow-up advised. 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 - tib fib XR: No definite acute osseous abnormality right leg. Lucencies in the area of the medial and lateral malleoli which may be summation shadows. Clinical correlation and follow-up advised.. - foot XR: Extensive soft tissue swelling. No definite evidence for osteomyelitis. - started on Levaquin and Flagyl on 08/20/2024. Reviewed micro and patient has history of Pseudomonas and Staph with multiple resistances in March of 2024. Previously placed on meropenem after case was reviewed with ID pharmacist during the patient's most recent admission in May of 2024. Will place patient back on meropenem as well as vancomycin and obtain wound culture. - wound RN consulted (2) Peripheral vascular disease: Code(s): I73.9 - Peripheral vascular disease, unspecified Status: Acute Assessment and Plan: - follows with Chris DE LEON with vascular surgery. Reportedly told at most recent visit on XX that there were no further interventions to increased blood flow to his affected extremity as the disease is below the knee. (3) CHF (congestive heart failure): Qualifiers: Heart failure chronicity: chronic Heart failure type: diastolic Qualified Code(s): I50.32 - Chronic diastolic (congestive) heart failure Code(s): I50.9 - Heart failure, unspecified Status: Chronic Assessment and Plan: - echo, previous: Estimated EF 65-70%, grade 1 diastolic dysfunction. Technically difficult echo. See report for details. - continue home medications: Bumex, metolazone, spironolactone. Hold Diamox, contraindicated in CKD stage 4. - monitor I&Os daily weights (4) Atrial fibrillation: Qualifiers: Atrial fibrillation type: longstanding persistent Qualified Code(s): I48.11 - Longstanding persistent atrial fibrillation Code(s): I48.91 - Unspecified atrial fibrillation Status: Chronic Assessment and Plan: - continue home medications: Eliquis and Metoprolol (5) Chronic anemia: Code(s): D64.9 - Anemia, unspecified Status: Acute Assessment and Plan: - Hgb 9.5, previously 8.4 on 05/19/2024. At baseline. - transfuse if <7 - monitor (6) CKD (chronic kidney disease) stage 3, GFR 30-59 ml/min: Qualifiers: Chronic kidney disease stage 3 subtype: stage 3b (GFR 30-44) Qualified Code(s): N18.32 - Chronic kidney disease, stage 3b Code(s): N18.3 - Chronic kidney disease, stage 3 (moderate) Status: Acute Assessment and Plan: - creatinine 2.48 and GFR 26, previously 2.23 and GFR 29 on 05/19/2024 - trend renal function - trend electrolytes, correct as needed (7) Essential (primary) hypertension: Code(s): I10 - Essential (primary) hypertension Status: Chronic Assessment and Plan: - chronic, currently 102/53 - continue home medications: Metoprolol - monitor (8) AMELIA (obstructive sleep apnea): Code(s): G47.33 - Obstructive sleep apnea (adult) (pediatric) Status: Acute Assessment and Plan: - continue home CPAP Plan Diet: Heart healthy GI Prophylaxis: Not currently indicated DVT Prophylaxis: Eliquis IV fluids: None Lines/Tubes: Peripheral IV Code Status: Full code Quality VTE Prophylaxis VTE prophylaxis: pharmacologic ordered Hospitalist MIPS Advance Care Plan I have confirmed that the patient's Advanced Care Plan is present, code status is documented, or surrogate decision maker is listed in patient medical record.: Yes Medication Reconciliation I have utilized all available resources to obtain, update and review the patients current medications (includes all prescriptions, OTC, herbals, cannabis, and nutritional supplements).: Yes
[2024-08-20] MEDS: MEROPENEM 1 GM/NS 100 ML 1 GM/100 ML BAG IVPB (18:58)
--- NOTE | 2024-08-20 18:59 | ADMGEN ---
This patient, Irwin Cyr Jr., was admitted to Medical Room 348-. Patient/family oriented to hospital policies and general routines including ID bracelet, bed and alarms, visiting hours, pain management, procedures, bathroom and other care routines, personal items, smoking policy, room service/diet, and visiting hours. Information on how to activate the Rapid Response Team has been discussed. Patient/Family are encouraged to report perceived risks to care and to ask questions if they do not understand what they are told or what they should do.
[2024-08-20] MEDS: VANCOMYCIN 1,250 MG/NS 250 ML 1,250 MG/250 ML BAG 166.67 MG IVPB ×2 (20:25→22:16)
[2024-08-20] MEDS: METOPROLOL TARTRATE 50 MG TAB PO (22:15)
[2024-08-20] MEDS: GABAPENTIN 300 MG CAPSULE PO (22:15)
[2024-08-20] MEDS: FAMOTIDINE 20 MG TABLET PO (22:16)
[2024-08-21] VITALS (7 sets, daily range): BP systolic 109–115; BP diastolic 55–72; PULSE 66–101; RESP 16–20; TEMP 36.6–36.8; O2SAT 95–100
[2024-08-21] MEDS: ACETAMINOPHEN 325 MG TABLET 650 MG PO (06:00)
[2024-08-21] MEDS: MEROPENEM 1 GM/NS 100 ML 1 GM/100 ML BAG IVPB ×2 (06:01→18:37)
[2024-08-21] MEDS: LEVOTHYROXINE SODIUM 100 MCG TABLET 200 MCG PO (06:01)
[2024-08-21 06:26] LABS: Estimated CRCL calculation 42 ml/min; Estimated Glomerular Filt Rate 30
[2024-08-21] MEDS: GABAPENTIN 300 MG CAPSULE PO ×3 (08:55→17:00)
[2024-08-21] MEDS: allopurinoL 100 MG TABLET PO (08:55)
[2024-08-21] MEDS: BUMETANIDE 1 MG TABLET PO ×3 (08:55→17:00)
[2024-08-21] MEDS: calcitrioL 0.25 MCG CAPSULE PO (08:55)
[2024-08-21] MEDS: TAMSULOSIN HCL 0.4 MG CAPSULE PO (08:55)
[2024-08-21] MEDS: APIXABAN 5 MG TABLET PO (08:55)
[2024-08-21] MEDS: FAMOTIDINE 20 MG TABLET PO ×2 (08:55→17:00)
[2024-08-21] MEDS: metOLazone 5 MG TABLET PO (08:55)
[2024-08-21] MEDS: METOPROLOL TARTRATE 50 MG TAB PO ×2 (08:56→20:53)
[2024-08-21] MEDS: minoxidiL 2.5 MG TABLET PO (08:56)
[2024-08-21] MEDS: SPIRONOLACTONE 25 MG TABLET PO (08:56)
[2024-08-21 10:00] LABS: Basophils Absolute Auto 0.1 K/mm3 (0.0-0.1); Basophils Percent Auto 0.5 % (0.2-1.2); Eosinophils Absolute Auto 0.3 K/mm3 (0-0.3); Eosinophils Percent Auto 2.7 % (0-4.4); Hematocrit 31.2 % (42.0-52.0); Hemoglobin 8.9 g/dL (14.0-18.0); Immature Granulocyte Absolute 0.05 K/mm3 (0.00-0.031); Immature Granulocyte Percent A 0.5 % (0-0.5); Lymphocytes Absolute Auto 0.33 K/mm3 (0.9-3.2); Lymphocytes Percent Auto 3.4 % (18.3-44.2); Mean Corpuscular HGB Conc 28.5 g/dl (32-36); Mean Corpuscular Hemoglobin 25.9 pg (26-34); Monocytes Absolute Auto 0.6 K/mm3 (0.1-0.6); Monocytes Percent Auto 6.4 % (2.6-8.5); Neutrophils Absolute Auto 8.5 K/mm3 (1.3-6.7); Neutrophils Percent Auto 86.5 % (45.5-73.1); Platelet Count Result 322 k/mm3 (150-375); Red Blood Count 3.43 M/mm3 (4.6-6.20); Red Cell Distribution Width 15.9 % (11.5-14.5); White Blood Count 9.8 K/mm3 (4.5-10.0)
[2024-08-21 10:21] LABS: Anisocytosis 1+; Hypochromasia 1+; Ovalocytes 1+; Platelet Estimate Adequate (Adequate); Schistocytes None Seen
[2024-08-21] MEDS: MORPHINE SULFATE (*CRX) 2 MG/ML INJ IV PUSH ×5 (10:26→21:55)
[2024-08-21 10:56] LABS: Alanine Aminotransferase 8 U/L (6-50); Albumin Level 2.9 g/dL (3.5-5.1); Alkaline Phosphatase 38 U/L (38-126); Anion Gap 7 mmol/L (4-12); Aspartate Amino Transferase 14 U/L (17-59); Bilirubin,Total 0.4 mg/dL (0.2-1.3); Blood Urea Nitrogen 57 mg/dL (9-20); Calcium 7.8 mg/dL (8.4-10.2); Carbon Dioxide 26 mmol/L (22-30); Chloride 100 mmol/L (98-107); Estimated CRCL calculation 42 ml/min; Estimated Glomerular Filt Rate 30; Glucose 99 mg/dL (65-110); Magnesium 2.4 mg/dL (1.6-2.3); Potassium 3.7 mmol/L (3.4-5.0); Sodium 133 mmol/L (137-145)
--- NOTE | 2024-08-21 11:32 | PM.IMPN ---
Progress Note: A&P Assessment and Plan (1) Venous stasis ulcer of right foot: Code(s): I83.015 - Varicose veins of right lower extremity with ulcer other part of foot Status: Acute Assessment and Plan: - ankle XR: Lucency over the right lateral malleolus. Follow-up advised. 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 - tib fib XR: No definite acute osseous abnormality right leg. Lucencies in the area of the medial and lateral malleoli which may be summation shadows. Clinical correlation and follow-up advised.. - foot XR: Extensive soft tissue swelling. No definite evidence for osteomyelitis. - started on Levaquin and Flagyl on 08/20/2024. Reviewed micro and patient has history of Pseudomonas and Staph with multiple resistances in March of 2024. Previously placed on meropenem after case was reviewed with ID pharmacist during the patient's most recent admission in May of 2024. Will place patient back on meropenem as well as vancomycin and obtain wound culture. - wound RN consulted. Recommendations: daily cleanse right lower leg and foot by the 5th toe, apply antifungal powder to open weeping maceration areas. place ABD pads and roll gauze cover if patient allows, if not place nito pads under and over foot and leg to control exudate and change daily and PRN if heavily soiled. -Surgery consulted. (2) Peripheral vascular disease: Code(s): I73.9 - Peripheral vascular disease, unspecified Status: Acute Assessment and Plan: - follows with Chris D ELEON with vascular surgery. Reportedly told at most recent visit on XX that there were no further interventions to increased blood flow to his affected extremity as the disease is below the knee. (3) CHF (congestive heart failure): Qualifiers: Heart failure chronicity: chronic Heart failure type: diastolic Qualified Code(s): I50.32 - Chronic diastolic (congestive) heart failure Code(s): I50.9 - Heart failure, unspecified Status: Chronic Assessment and Plan: - echo, previous: Estimated EF 65-70%, grade 1 diastolic dysfunction. Technically difficult echo. See report for details. - continue home medications: Bumex, metolazone, spironolactone. Hold Diamox, contraindicated in CKD stage 4. - monitor I&Os daily weights (4) Atrial fibrillation: Qualifiers: Atrial fibrillation type: longstanding persistent Qualified Code(s): I48.11 - Longstanding persistent atrial fibrillation Code(s): I48.91 - Unspecified atrial fibrillation Status: Chronic Assessment and Plan: - continue home medications: Eliquis and Metoprolol (5) Chronic anemia: Code(s): D64.9 - Anemia, unspecified Status: Acute Assessment and Plan: - Hgb 8.9, previously 8.4 on 05/19/2024. At baseline. - transfuse if <7 - monitor (6) CKD (chronic kidney disease) stage 3, GFR 30-59 ml/min: Qualifiers: Chronic kidney disease stage 3 subtype: stage 3b (GFR 30-44) Qualified Code(s): N18.32 - Chronic kidney disease, stage 3b Code(s): N18.3 - Chronic kidney disease, stage 3 (moderate) Status: Acute Assessment and Plan: - creatinine 2.14 and GFR 30, previously 2.23 and GFR 29 on 05/19/2024 - trend renal function - trend electrolytes, correct as needed (7) Essential (primary) hypertension: Code(s): I10 - Essential (primary) hypertension Status: Chronic Assessment and Plan: - chronic, currently 111/56. - continue home medications: Metoprolol - monitor (8) AMELIA (obstructive sleep apnea): Code(s): G47.33 - Obstructive sleep apnea (adult) (pediatric) Status: Acute Assessment and Plan: - continue home CPAP Plan Diet: Heart healthy GI Prophylaxis: Not currently indicated DVT Prophylaxis: Eliquis IV fluids: None Lines/Tubes: Peripheral IV Code Status: Full code Subjective Date/time seen: 08/21/24 11:32 Interval history: Patient reports pain in right lower leg is a 4.5, constant, aching, and sharp at times. Patient reports that he has had issues with his leg for a while and discussed them with Dianne in wound care. Patient would like to speak with surgery. Patient denies chest pain, palpitations, headache, dizziness, nausea, or vomiting. Review of Systems Review of Systems: All systems reviewed & are unremarkable except as noted in HPI and below Exam Const: General: no acute distress and uncomfortable Resp: Effort & Inspection: normal respiratory effort Auscultation: clear to auscultation bilaterally Cardio: Rate: regular rate Rhythm: regular rhythm GI: GI Palp: Yes Soft to palpation Auscultation: normal bowel sounds Skin: Other: Significant erythema and swelling to right foot. Skin sloughing with surrounding tissue weeping maceration tips of toes to calf. 4+ edema, erythema, warmth and pain reported when foot touched. Some areas of eschar are present by the toes. Neuro: Speech: normal speech Extrem: Other: Significant lymphedema to bilateral lower extremities. Psych: Mental Status: mental status grossly normal Affect: normal affect Objective Data Vital Signs Vital Signs: Vital Signs - 24 hr 08/20/24 11:37 08/20/24 12:01 08/20/24 12:16 Temperature Pulse Rate 70 73 65 Respiratory Rate 20 15 14 Blood Pressure 111/70 114/60 109/57 L Pulse Oximetry 100 98 99 Oxygen Delivery Fraction of Inspired Oxygen 08/20/24 12:31 08/20/24 14:30 08/20/24 14:31 Temperature Pulse Rate 75 71 71 Respiratory Rate 14 14 18 Blood Pressure 107/82 100/53 L 100/53 L Pulse Oximetry 100 99 Oxygen Delivery Fraction of Inspired Oxygen 08/20/24 14:46 08/20/24 15:01 08/20/24 15:16 Temperature Pulse Rate 72 68 66 Respiratory Rate 15 13 14 Blood Pressure 110/54 L 110/59 L 113/52 L Pulse Oximetry 98 97 96 Oxygen Delivery Fraction of Inspired Oxygen 08/20/24 15:31 08/20/24 15:46 08/20/24 16:01 Temperature Pulse Rate 66 71 72 Respiratory Rate 12 13 14 Blood Pressure 106/56 L 112/61 103/58 L Pulse Oximetry 99 99 97 Oxygen Delivery Fraction of Inspired Oxygen 08/20/24 16:16 08/20/24 16:31 08/20/24 17:49 Temperature Pulse Rate 70 77 78 Respiratory Rate 12 12 13 Blood Pressure 101/59 L 94/60 L 102/53 L Pulse Oximetry 98 100 Oxygen Delivery Fraction of Inspired Oxygen 08/20/24 20:32 08/20/24 21:31 08/20/24 22:15 Temperature 97.8 F Pulse Rate 110 H 75 80 Respiratory Rate 20 18 Blood Pressure 121/61 Pulse Oximetry 91 95 Oxygen Delivery Fraction of Inspired Oxygen 08/20/24 23:02 08/21/24 05:24 08/21/24 06:00 Temperature 97.8 F Pulse Rate 102 H 101 H 80 Respiratory Rate 18 Blood Pressure 111/56 L Pulse Oximetry 94 95 100 Oxygen Delivery Fraction of Inspired Oxygen 08/21/24 08:00 08/21/24 08:56 Temperature Pulse Rate 72 Respiratory Rate Blood Pressure Pulse Oximetry Oxygen Delivery Room Air Fraction of Inspired Oxygen Intake/Output Intake/Output: Intake & Output 08/18/24 08/19/24 08/20/24 08/21/24 23:59 23:59 23:59 23:59 Intake Total 200 200 Output Total 900 Balance 200 -700 Meds/Results Medications: Active Medications Generic Name Dose Route Start Last Admin Trade Name Freq PRN Reason Stop Dose Admin Acetaminophen 650 mg 08/20/24 16:16 08/21/24 06:00 Acetaminophen 325 Mg Tablet PO 650 mg Q4H PRN Administration Mild Pain (1-3) or Fever Hydrocodone Bitart/Acetaminophen 1 tab 08/20/24 16:16 Hydrocodone/Acetaminophen (*Crx) 5-325 Mg Tablet PO Q4H PRN Pain Rated 4-6 Allopurinol 100 mg 08/21/24 09:00 08/21/24 08:55 Allopurinol 100 Mg Tablet PO 100 mg DAILY ANGELA Administration Apixaban 5 mg 08/20/24 22:05 08/21/24 08:55 Apixaban 5 Mg Tablet PO 5 mg Q12HR ANGELA Administration Bumetanide 1 mg 08/21/24 09:00 08/21/24 08:55 Bumetanide 1 Mg Tablet PO 1 mg TID ANGELA Administration Calcitriol 0.25 mcg 08/21/24 09:00 08/21/24 08:55 Calcitriol 0.25 Mcg Capsule PO 0.25 mcg [id number] ANGELA Administration Docusate Sodium 100 mg 08/20/24 21:47 Docusate Sodium 100 Mg Capsule PO Q12H PRN constipation Famotidine 20 mg 08/20/24 22:05 08/21/24 08:55 Famotidine 20 Mg Tablet PO 20 mg BID ANGELA Administration Fluticasone Propionate 1 spray 08/21/24 09:00 08/21/24 08:59 Fluticasone Propionate 0.05% Na Spr 16 Gm Btl (*Bkc) NASAL Not Given DAILY ANGELA Gabapentin 300 mg 08/20/24 22:05 08/21/24 08:55 Gabapentin 300 Mg Capsule PO 300 mg TID [facility] Administration Meropenem 1 gm in 100 mls @ 200 mls/hr 08/20/24 19:00 08/21/24 06:01 IVPB 200 mls/hr Q12H [facility] Administration Vancomycin HCl 1,500 mg in 500 mls @ 250 mls/hr 08/21/24 20:00 Vancomycin 1,500 Mg/Ns 500 Ml IVPB Q24H [facility] Levothyroxine Sodium 200 mcg 08/21/24 06:30 08/21/24 06:01 Levothyroxine Sodium 100 Mcg Tablet PO 200 mcg DAILY@0630 [facility] Administration Loratadine 10 mg 08/20/24 21:47 Loratadine 10 Mg Tablet PO DAILY PRN allergy symptoms Metolazone 5 mg 08/21/24 09:00 08/21/24 08:55 Metolazone 5 Mg Tablet PO 5 mg DAILY [facility] Administration Metoprolol Tartrate 50 mg 08/20/24 22:05 08/21/24 08:56 Metoprolol Tartrate 50 Mg Tab PO 50 mg Q12HR [facility] Administration Minoxidil 2.5 mg 08/21/24 09:00 08/21/24 08:56 Minoxidil 2.5 Mg Tablet PO 2.5 mg DAILY [facility] Administration Morphine Sulfate 2 mg 08/20/24 16:16 08/21/24 10:26 Morphine Sulfate (*Crx) 2 Mg/Ml Inj IV PUSH 2 mg Q2H PRN Administration Pain Rated 7-10 Multi-Ingred Cream/Lotion/Oil/Oint 1 applic 08/21/24 09:00 Eucerin Cream 454 Gm Jar TOPICAL BID [facility] Polyethylene Glycol 17 gm 08/20/24 21:47 Polyethylene Glycol 3350 17 Gm Powd.Pack PO DAILY PRN Constipation Potassium Chloride 10 meq 08/20/24 22:04 Potassium Chloride 10 Meq Er Tablet PO DAILY PRN leg cramping Promethazine HCl 12.5 mg 08/20/24 16:16 Promethazine Hcl 25 Mg/Ml Ampul IV PUSH Q6H PRN Nausea Spironolactone 25 mg 08/21/24 09:00 08/21/24 08:56 Spironolactone 25 Mg Tablet PO 25 mg DAILY [facility] Administration Tamsulosin HCl 0.4 mg 08/21/24 09:00 08/21/24 08:55 Tamsulosin Hcl 0.4 Mg Capsule PO 0.4 mg QAM ANGELA Administration Radiology Results: ITS Impressions Ankle X-Ray 08/20/24 12:55 IMPRESSION: Lucency over the right lateral malleolus. Follow-up advised. 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 Tibia/Fibula X-Ray 08/20/24 13:03 IMPRESSION: No definite acute osseous abnormality right leg. Lucencies in the area of the medial and lateral malleoli which may be summation shadows. Clinical correlation and follow-up advised.. Foot X-Ray 08/20/24 13:07 Impression: Extensive soft tissue swelling. No definite evidence for osteomyelitis. Labs Labs: Laboratory Results - last 24 hr 08/20/24 08/20/24 08/21/24 12:02 13:19 05:27 WBC 9.6 9.8 RBC 3.71 L 3.43 L Hgb 9.5 L 8.9 L Hct 34.1 L 31.2 L MCV 91.9 91.0 MCH 25.6 L 25.9 L MCHC 27.9 L 28.5 L RDW 16.0 H 15.9 H Plt Count 349 322 MPV 9.9 10.0 Immature Gran % (Auto) 0.6 H 0.5 Neut % (Auto) 83.2 H 86.5 H Lymph % (Auto) 4.6 L 3.4 L [place] % (Auto) 7.3 6.4 Eos % (Auto) 3.7 2.7 Baso % (Auto) 0.6 0.5 Lymph # (Auto) 0.44 L 0.33 L [place] # (Auto) 0.7 H 0.6 Eos # (Auto) 0.4 H 0.3 Baso # (Auto) 0.1 0.1 Abs Immat Gran (auto) 0.06 H 0.05 H Absolute Neuts (auto) 8.0 H 8.5 H Absolute Nucleated RBC 0.000 0.000 Band Neutrophils % Not Reportable Nucleated RBC % 0.0 0.0 Platelet Estimate Adequate Hypochromasia 1+ Anisocytosis 1+ Ovalocytes 1+ Schistocytes None seen Sodium 133 L 133 L Potassium 3.6 3.7 Chloride 96 L 100 Carbon Dioxide 28 26 Anion Gap 9 7 BUN 60 H D 57 H Creatinine 2.48 H 2.18 H Estim Creat Clear Calc 37 Estimated GFR 26 L Glucose 104 Lactic Acid 1.5 Calcium 8.2 L Magnesium Total Bilirubin 0.3 AST 17 ALT 9 Alkaline Phosphatase 39 Total Protein 6.0 L Albumin 3.5 08/21/24 08/21/24 08/21/24 05:27 05:27 05:27 WBC RBC Hgb Hct MCV MCH MCHC RDW Plt Count MPV Immature Gran % (Auto) Neut % (Auto) Lymph % (Auto) [place] % (Auto) Eos % (Auto) Baso % (Auto) Lymph # (Auto) [place] # (Auto) Eos # (Auto) Baso # (Auto) Abs Immat Gran (auto) Absolute Neuts (auto) Absolute Nucleated RBC Band Neutrophils % Nucleated RBC % Platelet Estimate Hypochromasia Anisocytosis Ovalocytes Schistocytes Sodium Potassium Chloride Carbon Dioxide Anion Gap BUN Creatinine 2.14 H Estim Creat Clear Calc 42 42 Estimated GFR 30 L 30 L Glucose 99 Lactic Acid Calcium 7.8 L Magnesium 2.4 H Total Bilirubin 0.4 AST 14 L ALT 8 Alkaline Phosphatase 38 Total Protein 5.0 L Albumin 2.9 L Quality VTE Prophylaxis VTE prophylaxis: pharmacologic ordered
[2024-08-21] MEDS: EUCERIN CREAM 454 GM JAR 1 APPLIC TOPICAL ×2 (13:16→17:01)
--- NOTE | 2024-08-21 16:37 | P.CONGS_ITS ---
Assessment and Plan Assessment and plan (1) Right foot infection: Code(s): L08.9 - Local infection of the skin and subcutaneous tissue, unspecified Status: Acute Assessment and Plan: * I have reviewed the x-rays and discussed the findings with the patient. He has chronic wounds to the right foot involving the 1st and 2nd digits. The patient has felt like he has exhausted all potential treatment options that do not involving amputation. He has significant lower extremity edema which I discussed will likely make any surgical healing very difficult. Forefoot amputation would not likely heal given the significant surrounding cellulitis and edema. He also has a wound near his ankle which could continue to be a problem. Patient is wanting to consider below-knee amputation to treat this. I discussed that given his chronic venous insufficiency and venous stasis dermatitis, healing from an amputation but still be difficult and could take a long time. Patient voiced his understanding and is wanting to proceed with below-knee amputation. Will hold anticoagulation at this time. Continue local wound care and will plan for right below-knee amputation in the next several days. (2) Cellulitis of right foot: Code(s): L03.115 - Cellulitis of right lower limb Status: Acute (3) Chronic wound of extremity: Status: Acute (4) Venous stasis ulcer of right foot: Code(s): I83.015 - Varicose veins of right lower extremity with ulcer other part of foot Status: Acute (5) Lymphedema of both lower extremities: Code(s): I89.0 - Lymphedema, not elsewhere classified Status: Acute (6) CKD (chronic kidney disease) stage 3, GFR 30-59 ml/min: Qualifiers: Chronic kidney disease stage 3 subtype: stage 3b (GFR 30-44) Qualified Code(s): N18.32 - Chronic kidney disease, stage 3b Code(s): N18.3 - Chronic kidney disease, stage 3 (moderate) Status: Acute (7) Peripheral vascular disease: Code(s): I73.9 - Peripheral vascular disease, unspecified Status: Acute (8) Chronic venous insufficiency: Code(s): I87.2 - Venous insufficiency (chronic) (peripheral) Status: Acute (9) Atrial fibrillation: Qualifiers: Atrial fibrillation type: longstanding persistent Qualified Code(s): I 48.11 - Longstanding persistent atrial fibrillation Code(s): I48.91 - Unspecified atrial fibrillation Status: Chronic History of Present Illness Consult details Consult date: 08/21/24 Reason for consult: other (right foot wound) Requesting physician: Fabby Camarena APRN Narrative: This is a 74-year-old man who I am asked to see for a chronic nonhealing right foot wound. He has been hospitalized multiple times for right foot infections. Has had cellulitis and open wounds has not had a prior history of osteomyelitis. The patient seen a vascular surgeon in [place] and there does not appear to be any revascularization procedure that would help this. [facility] but still continues to have frequent infections requiring inpatient hospital admission. Patient also has chronic venous insufficiency lymphedema of the lower extremities. He has a prior history of right femur fracture repair x-ray does not appear to have any hardware below the knee. The patient states that he is tired of continuing with topical treatment of the wounds and does not feel the right leg will ever completely heal. He is wanting to consider amputation so that he has a chance that this finally healing completely and does not keep having the recurrent infections. Review of Systems 2 Review of Systems: All systems reviewed & are unremarkable except as noted in HPI and below Constitutional: Constitutional: Denies chills and Denies fever(s) Eyes: Eyes: Denies change in vision ENT: Denies hearing loss, Denies neck pain and Denies sore throat Cardiovascular: Cardiovascular: Denies chest pain and Denies dyspnea Respiratory: Respiratory: Denies cough, Denies dyspnea and Denies wheezing Gastrointestinal: Gastrointestinal: Denies nausea and Denies vomiting Genitourinary: Genitourinary: Denies hematuria and Denies dysuria Musculoskeletal: Musculoskeletal: Reports as per HPI Integumentary/Breasts: Skin/Breast: Reports as per HPI Allergic/Immunologic: Allergic/Immunologic: Denies wheezing PMFSH Past Medical History Medical History Self-care deficit Peripheral vascular disease Morbid obesity with body mass index (BMI) of 40.0 or higher Neuropathic pain Gout Sepsis Chronic acquired lymphedema Chronic anemia Obstructive sleep apnea Atrial fibrillation Lymphedema of both lower extremities Environmental allergies Ocular rosacea Rosacea Chronic low back pain Chronic venous insufficiency GERD without esophagitis Chronic congestive heart failure Echocardiogram in May 2021 was technically difficult and showed normal LV systolic function with an EF of 60 to 65%, severely enlarged RV chamber with moderate to severely reduced RV systolic function, severe biatrial enlargement, and moderate pulmonary hypertension. Dyslipidemia Essential (primary) hypertension Peripheral polyneuropathy Hypothyroidism Surgical History Surgical History History of carpal tunnel release History of thoracic surgery Pericardial effusion s/p pericardial window thought secondary to minoxidil, in 2010 at [facility]. H/O eye surgery (~2005) [id number] [facility] History of foot surgery Left Foot History of cholecystectomy (2008) History of rotator cuff surgery Bilateral. History of discectomy (2012) Family History Family History Father Cardiovascular disease Grandparent Cancer Mother COPD (chronic obstructive pulmonary disease) Social History Social History Social History: Surrogate medical decision maker: Shyla Hurst, daughter. Code status: Full code. Caffeine-decalf coffee, diet soda Smoking packs per day: 2 Smoking cigarettes per day: 40.0 Years smoked: 20 Smoking pack-years: 40.00 Smoking status: Former smoker Second hand tobacco smoke exposure: No Additional smoking assessment comments: 1979 Alcohol intake: former Alcohol use details: One beer daily. Substance use: never Substance use type: does not use Do You Feel Safe in your Home?: Yes Lack of Transportation: No Lack of Food: Never True Current Housing: I Have Housing Concerned About Future Housing: No Difficulty Paying Gas/Electric Bills: No Difficulty Paying for Meds: No Currently Unemployed: No Education: High School Diploma/GED Difficulty w/ Childcare or Family Care: No Living arrangements: alone Additional living arrangements comments: Lives in own home in [place]. Uses a motorized scooter and transfers with slide board. Occupation/Education: retired Additional occupation/education comments: Retired. 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 Spiritual care concerns: No Meds Home Medications and Allergies Home Medications ?Medication ?Instructions ?Recorded ?Confirmed ?Type loratadine 10 mg tablet (Claritin) 10 mg PO DAILY PRN allergy symptoms 07/12/20 08/20/24 History polyethylene glycol 3350 17 17 g PO DAILY PRN Constipation 06/02/21 08/20/24 History gram/dose oral powder (Miralax) apixaban 5 mg tablet (Eliquis) 5 mg PO Q12HR #180 tabs 01/19/22 08/20/24 Rx metoprolol tartrate 50 mg tablet 50 mg PO Q12HR #180 tabs 01/19/22 08/20/24 Rx acetazolamide 250 mg tablet 250 mg PO DAILY 11/19/22 08/20/24 History fluticasone propionate 50 1 spray intranasal DAILY Congestion 11/19/22 08/20/24 History mcg/actuation nasal spray,suspension (Flonase Allergy Relief) lanolin alcohols-mineral 1 applic topical BID #113 grams 03/25/23 08/20/24 Rx oil-w.petrolatum-ceresin topical cream (Minerin Creme topical) spironolactone 25 mg tablet 25 mg PO DAILY #30 tabs 04/06/23 08/20/24 Rx calcitriol 0.25 mcg capsule 0.25 mcg PO 3XW #36 caps 10/30/23 08/20/24 Rx acetaminophen 325 mg tablet 500 mg PO Q4H PRN Mild Pain (1-3) 01/15/24 08/20/24 History Or Fever docusate sodium 100 mg capsule 100 mg PO Q12H PRN constipation 05/13/24 08/20/24 History gabapentin 300 mg capsule 300 mg PO TID #270 caps 05/14/24 08/20/24 Rx bumetanide 1 mg tablet See Rx Instructions .Route 06/29/24 08/20/24 Rx .COMPLEX #270 tabs allopurinol 100 mg tablet 100 mg PO DAILY #10 tabs 08/04/24 08/20/24 Rx allopurinol 100 mg tablet 100 mg PO DAILY@0800 #90 tabs 08/04/24 08/20/24 Rx famotidine 20 mg tablet 20 mg PO BID #180 tabs 08/04/24 08/20/24 Rx levothyroxine 200 mcg tablet 200 mcg PO DAILY #90 tabs 08/04/24 08/20/24 Rx metolazone 5 mg tablet 5 mg PO DAILY 08/04/24 08/20/24 History minoxidil 2.5 mg tablet 2.5 mg PO DAILY 08/04/24 08/20/24 History potassium chloride 10 mEq 10 meq PO DAILY PRN leg cramping 08/04/24 08/20/24 History capsule,extended release tamsulosin 0.4 mg capsule 0.4 mg PO QAM #90 caps 08/04/24 08/20/24 Rx Allergies Allergy/AdvReac Type Severity Reaction Status Date / Time Sulfa (Sulfonamide Allergy Mild Rash Verified 08/20/24 11:38 Antibiotics) Penicillins Allergy Unknown SWELLING Verified 08/20/24 11:38 codeine AdvReac Mild N/V Verified 08/20/24 11:38 hydrocodone AdvReac Mild N/V Verified 08/20/24 11:38 oxycodone (From OxyContin) AdvReac Mild Nausea Verified 08/20/24 11:38 tramadol AdvReac Mild Nausea Verified 08/20/24 11:38 Vital Signs Vital Signs - 24 hr 08/20/24 17:49 08/20/24 20:32 08/20/24 21:31 Temperature 97.8 F Pulse Rate 78 110 H 75 Respiratory Rate 13 20 18 Blood Pressure 102/53 L 121/61 Pulse Oximetry 100 91 95 Oxygen Delivery Fraction of Inspired Oxygen 21 08/20/24 22:15 08/20/24 23:02 08/21/24 05:24 Temperature Pulse Rate 80 102 H 101 H Respiratory Rate Blood Pressure Pulse Oximetry 94 95 Oxygen Delivery Fraction of Inspired Oxygen 08/21/24 06:00 08/21/24 08:00 08/21/24 08:56 Temperature 97.8 F Pulse Rate 80 72 Respiratory Rate 18 Blood Pressure 111/56 L Pulse Oximetry 100 Oxygen Delivery Room Air Fraction of Inspired Oxygen 08/21/24 14:00 Temperature 98.2 F Pulse Rate 66 Respiratory Rate 20 Blood Pressure 115/72 Pulse Oximetry 98 Oxygen Delivery Fraction of Inspired Oxygen Exam 2 Const: General: alert; No acute distress Orientation/consciousness: patient oriented x3 Limitations: no limitations HENMT: Head: normocephalic and atraumatic Ears: hearing grossly normal bilaterally Face/Nose/Sinus: Normal external nose present and Normal nares present Mouth: Yes Normal oral and palatal mucosa present and Yes moist mucous membranes Eyes: General: appearance normal, both eyes and all related structures C onjunctivae: conjunctivae normal Sclera: sclerae normal Pupils: Equal, round and reactive pupils present EOM: EOMs intact bilaterally Neck: Neck: normal visual inspection, full ROM, no lymphadenopathy, supple and no JVD Lymphatic: no lymphadenopathy noted Chest: Chest palpation & inspection: normal inspection of the chest Resp: Effort & Inspection: normal respiratory effort and able to speak in complete sentences Auscultation: clear to auscultation bilaterally P ercussion: percussion normal Cardio: Jugular venous distension: no JVD Rate: regular rate Rhythm: r egular rhythm Heart sounds: S1 normal heart sound present and S2 normal heart sound present Peripheral pulses: Peripheral pulses 2+ throughout GI: Inspection: normal to inspection Auscultation: normal bowel sounds : General: Yes no CVA tenderness Back/Spine/Pelvis: Back: no CVA tenderness Skin: General skin exam: normal color and dry skin Neuro: General: patient oriented x3, gait normal, moves all extremities, no focal motor deficits and CN's II-XI intact bilaterally Cranial nerves: Yes Equal, round and reactive pupils present Speech: normal speech Extrem: General: normal to inspection and capillary refill normal Other: Significant edema and erythema it is her right foot. Right great toe and 2nd toe have open wound in the interdigit space and reactive edema and induration. Patient also has a lateral calf wound with chronic skin thickening and eschar. This appears to be just above the ankle. Chronic venous stasis dermatitis to right lower extremity and chronic lymphedema. Pulses difficult to palpate due to the thickened skin and edema. Results Labs 08/21/24 05:27 08/21/24 05:27 Labs: Abnormal lab results 08/21/24 08/21/24 08/21/24 Range/Units 05:27 05:27 05:27 RBC 3.43 L (4.6-6.20) M/mm3 Hgb 8.9 L (14.0-18.0) g/dL Hct 31.2 L (42.0-52.0) % MCH 25.9 L (26-34) pg MCHC 28.5 L (32-36) g/dl RDW 15.9 H (11.5-14.5) % Neut % (Auto) 86.5 H (45.5-73.1) % Lymph % (Auto) 3.4 L (18.3-44.2) % Lymph # (Auto) 0.33 L (0.9-3.2) K/mm3 Abs Immat Gran (auto) 0.05 H (0.00-0.031) K/mm3 Absolute Neuts (auto) 8.5 H (1.3-6.7) K/mm3 Sodium 133 L (137-145) mmol/L BUN 57 H (9-20) mg/dL Creatinine 2.18 H 2.14 H (0.7-1.3) mg/dL Estimated GFR 30 L 30 L (59 - ) Calcium 7.8 L (8.4-10.2) mg/dL Magnesium 2.4 H (1.6-2.3) mg/dL AST 14 L (17-59) U/L Total Protein 5.0 L (6.3-8.2) g/dL Albumin 2.9 L (3.5-5.1) g/dL Diabetes panel 08/21/24 08/21/24 Range/Units 05:27 05:27 Sodium 133 L (137-145) mmol/L Potassium 3.7 (3.4-5.0) mmol/L Chloride 100 (98-107) mmol/L Carbon Dioxide 26 (22-30) mmol/L BUN 57 H (9-20) mg/dL Creatinine 2.18 H 2.14 H (0.7-1.3) mg/dL Glucose 99 (65-110) mg/dL Calcium 7.8 L (8.4-10.2) mg/dL AST 14 L (17-59) U/L ALT 8 (6-50) U/L Alkaline Phosphatase 38 (38-126) U/L Total Protein 5.0 L (6.3-8.2) g/dL Albumin 2.9 L (3.5-5.1) g/dL Calcium panel 08/21/24 Range/Units 05:27 Calcium 7.8 L (8.4-10.2) mg/dL Albumin 2.9 L (3.5-5.1) g/dL Pituitary panel 08/21/24 08/21/24 Range/Units 05:27 05:27 Sodium 133 L (137-145) mmol/L Potassium 3.7 (3.4-5.0) mmol/L Chloride 100 (98-107) mmol/L Carbon Dioxide 26 (22-30) mmol/L BUN 57 H (9-20) mg/dL Creatinine 2.18 H 2.14 H (0.7-1.3) mg/dL Glucose 99 (65-110) mg/dL Calcium 7.8 L (8.4-10.2) mg/dL Adrenal panel 08/21/24 08/21/24 Range/Units 05:27 05:27 Sodium 133 L (137-145) mmol/L Potassium 3.7 (3.4-5.0) mmol/L Chloride 100 (98-107) mmol/L Carbon Dioxide 26 (22-30) mmol/L BUN 57 H (9-20) mg/dL Creatinine 2.18 H 2.14 H (0.7-1.3) mg/dL Glucose 99 (65-110) mg/dL Calcium 7.8 L (8.4-10.2) mg/dL Total Bilirubin 0.4 (0.2-1.3) mg/dL AST 14 L (17-59) U/L ALT 8 (6-50) U/L Alkaline Phosphatase 38 (38-126) U/L Total Protein 5.0 L (6.3-8.2) g/dL Albumin 2.9 L (3.5-5.1) g/dL All other labs normal. Imaging Additional studies: ITS Impressions Ankle X-Ray 08/20/24 12:55 IMPRESSION: Lucency over the right lateral malleolus. Follow-up advised. 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 Tibia/Fibula X-Ray 08/20/24 13:03 IMPRESSION: No definite acute osseous abnormality right leg. Lucencies in the area of the medial and lateral malleoli which may be summation shadows. Clinical correlation and follow-up advised.. Foot X-Ray 08/20/24 13:07 Impression: Extensive soft tissue swelling. No definite evidence for osteomyelitis.
[2024-08-21] MEDS: VANCOMYCIN 1,500 MG/NS 500 ML 1,500 MG/500 ML BAG 250 MG IVPB (20:59)
[2024-08-22] VITALS (9 sets, daily range): BP systolic 106–122; BP diastolic 53–64; PULSE 68–96; RESP 18; TEMP 36.6–37.1; O2SAT 94–99
[2024-08-22] MEDS: MORPHINE SULFATE (*CRX) 2 MG/ML INJ IV PUSH ×4 (00:40→13:04)
[2024-08-22 05:21] LABS: Basophils Absolute Auto 0.1 K/mm3 (0.0-0.1); Basophils Percent Auto 0.8 % (0.2-1.2); Eosinophils Absolute Auto 0.2 K/mm3 (0-0.3); Eosinophils Percent Auto 2.8 % (0-4.4); Hematocrit 29.5 % (42.0-52.0); Hemoglobin 8.5 g/dL (14.0-18.0); Immature Granulocyte Absolute 0.05 K/mm3 (0.00-0.031); Immature Granulocyte Percent A 0.6 % (0-0.5); Lymphocytes Absolute Auto 0.48 K/mm3 (0.9-3.2); Lymphocytes Percent Auto 5.7 % (18.3-44.2); Mean Corpuscular HGB Conc 28.8 g/dl (32-36); Mean Corpuscular Volume 90.2 fl (80-100); Mean Platelet Volume 9.5 fl (7.4-10.4); Monocytes Absolute Auto 0.8 K/mm3 (0.1-0.6); Neutrophils Absolute Auto 6.9 K/mm3 (1.3-6.7); Neutrophils Percent Auto 81.1 % (45.5-73.1); Platelet Count Result 277 k/mm3 (150-375); Red Blood Count 3.27 M/mm3 (4.6-6.20); Red Cell Distribution Width 15.9 % (11.5-14.5); White Blood Count 8.5 K/mm3 (4.5-10.0)
[2024-08-22 05:32] LABS: Alanine Aminotransferase 7 U/L (6-50); Albumin Level 2.9 g/dL (3.5-5.1); Alkaline Phosphatase 35 U/L (38-126); Anion Gap 7 mmol/L (4-12); Aspartate Amino Transferase 12 U/L (17-59); Bilirubin,Total 0.3 mg/dL (0.2-1.3); Blood Urea Nitrogen 56 mg/dL (9-20); Carbon Dioxide 27 mmol/L (22-30); Chloride 98 mmol/L (98-107); Estimated CRCL calculation 42 ml/min; Estimated Glomerular Filt Rate 30; Glucose 94 mg/dL (65-110); Magnesium 2.3 mg/dL (1.6-2.3); Potassium 3.6 mmol/L (3.4-5.0); Sodium 132 mmol/L (137-145)
[2024-08-22 05:43] LABS: Band Neutrophils Percent 0 % (0-6)
[2024-08-22 05:44] LABS: Anisocytosis 1+; Hypochromasia 1+; Microcytosis 1+ (NORMAL); Ovalocytes 1+; Platelet Clumps Present; Platelet Estimate Adequate (Adequate); Schistocytes None Seen
[2024-08-22] MEDS: LEVOTHYROXINE SODIUM 100 MCG TABLET 200 MCG PO (06:00)
[2024-08-22] MEDS: MEROPENEM 1 GM/NS 100 ML 1 GM/100 ML BAG IVPB ×2 (06:00→18:22)
--- NOTE | 2024-08-22 10:01 | P.PNIM_ITS ---
Progress Note: A&P Assessment and Plan (1) Venous stasis ulcer of right foot: Code(s): I83.015 - Varicose veins of right lower extremity with ulcer other part of foot Status: Acute Assessment and Plan: - ankle XR: Lucency over the right lateral malleolus. Follow-up advised. 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 - tib fib XR: No definite acute osseous abnormality right leg. Lucencies in the area of the medial and lateral malleoli which may be summation shadows. Clinical correlation and follow-up advised.. - foot XR: Extensive soft tissue swelling. No definite evidence for osteomyelitis. - started on Levaquin and Flagyl on 08/20/2024. Reviewed micro and patient has history of Pseudomonas and Staph with multiple resistances in March of 2024. Previously placed on meropenem after case was reviewed with ID pharmacist during the patient's most recent admission in May of 2024. Will place patient back on meropenem as well as vancomycin and obtain wound culture. - wound RN consulted. Recommendations: daily cleanse right lower leg and foot by the 5th toe, apply antifungal powder to open weeping maceration areas. place ABD pads and roll gauze cover if patient allows, if not place nito pads under and over foot and leg to control exudate and change daily and PRN if heavily soiled. -Surgery consulted, plan for a below-knee amputation of the right leg in the next several days. HOLD eliquis. DVT prophylaxis Lovenox 40 mg subq daily. -Blood cultures no growth to date. (2) Peripheral vascular disease: Code(s): I73.9 - Peripheral vascular disease, unspecified Status: Acute Assessment and Plan: - follows with Chris DE LEON with vascular surgery. Reportedly told at most recent visit on XX that there were no further interventions to increased blood flow to his affected extremity as the disease is below the knee. (3) CHF (congestive heart failure): Qualifiers: Heart failure chronicity: chronic Heart failure type: diastolic Qualified Code(s): I50.32 - Chronic diastolic (congestive) heart failure Code(s): I50.9 - Heart failure, unspecified Status: Chronic Assessment and Plan: - echo, previous: Estimated EF 65-70%, grade 1 diastolic dysfunction. Technically difficult echo. See report for details. - continue home medications: Bumex, metolazone, spironolactone. Hold Diamox, contraindicated in CKD stage 4. - monitor I&Os daily weights (4) Atrial fibrillation: Qualifiers: Atrial fibrillation type: longstanding persistent Qualified Code(s): I48.11 - Longstanding persistent atrial fibrillation Code(s): I48.91 - Unspecified atrial fibrillation Status: Chronic Assessment and Plan: - continue home medications: Eliquis and Metoprolol. (5) Chronic anemia: Code(s): D64.9 - Anemia, unspecified Status: Acute Assessment and Plan: - Hgb 8.5, previously 8.4 on 05/19/2024. At baseline. - transfuse if <7. - monitor (6) CKD (chronic kidney disease) stage 3, GFR 30-59 ml/min: Qualifiers: Chronic kidney disease stage 3 subtype: stage 3b (GFR 30-44) Qualified Code(s): N18.32 - Chronic kidney disease, stage 3b Code(s): N18.3 - Chronic kidney disease, stage 3 (moderate) Status: Acute Assessment and Plan: - creatinine 2.18 and GFR 30, previously 2.23 and GFR 29 on 05/19/2024 - trend renal function - trend electrolytes, correct as needed (7) Essential (primary) hypertension: Code(s): I10 - Essential (primary) hypertension Status: Chronic Assessment and Plan: - chronic, currently 115/53. - continue home medications: Metoprolol - monitor (8) AMELIA (obstructive sleep apnea): Code(s): G47.33 - Obstructive sleep apnea (adult) (pediatric) Status: Acute Assessment and Plan: - continue home CPAP Plan Diet: Heart healthy GI Prophylaxis: Not currently indicated DVT Prophylaxis: Eliquis IV fluids: None Lines/Tubes: Peripheral IV Code Status: Full code Subjective Date/time seen: 08/22/24 10:01 Interval history: Denies pain at present. Patient reports difficulty with pain overnight. Patient denies chest pain, palpitations, headache, dizziness, nausea, or vomiting. Review of Systems Review of Systems: All systems reviewed & are unremarkable except as noted in HPI and below Exam Const: General: comfortable and no acute distress Resp: Effort & Inspection: normal respiratory effort Auscultation: clear to auscultation bilaterally Cardio: Rate: regular rate Rhythm: regular rhythm GI: GI Palp: Yes Soft to palpation Auscultation: normal bowel sounds Skin: Other: Significant erythema and swelling to right foot. Skin sloughing with surrounding tissue weeping maceration tips of toes to calf. 4+ edema, erythema, warmth and pain reported when foot touched. Some areas of eschar are present by the toes. Neuro: Speech: normal speech Extrem: Other: Significant edema and erythema it is her right foot. Right great toe and 2nd toe have open wound in the interdigit space and reactive edema and induration. Patient also has a lateral calf wound with chronic skin thickening and eschar. This appears to be just above the ankle. Chronic venous stasis dermatitis to right lower extremity and chronic lymphedema. Psych: Mental Status: mental status grossly normal Affect: normal affect Objective Data Vital Signs Vital Signs: Vital Signs - 24 hr 08/21/24 14:00 08/21/24 20:53 08/21/24 21:25 Temperature 98.2 F 98 F Pulse Rate 66 82 82 Respiratory Rate 20 16 Blood Pressure 115/72 109/55 L Pulse Oximetry 98 97 08/21/24 22:48 08/22/24 02:38 08/22/24 06:00 Temperature 98 F Pulse Rate 99 96 76 Respiratory Rate 18 Blood Pressure 115/53 L Pulse Oximetry 95 97 98 Intake/Output Intake/Output: Intake & Output 08/19/24 08/20/24 08/21/24 08/22/24 23:59 23:59 23:59 23:59 Intake Total 200 2560 930 Output Total 2700 1200 Balance 200 -140 -270 Meds/Results Medications: Active Medications Generic Name Dose Route Start Last Admin Trade Name Freq PRN Reason Stop Dose Admin Acetaminophen 650 mg 08/20/24 16:16 08/21/24 06:00 Acetaminophen 325 Mg Tablet PO 650 mg Q4H PRN Administration Mild Pain (1-3) or Fever Hydrocodone Bitart/Acetaminophen 1 tab 08/20/24 16:16 Hydrocodone/Acetaminophen (*Crx) 5-325 Mg Tablet PO Q4H PRN Pain Rated 4-6 Allopurinol 100 mg 08/21/24 09:00 08/21/24 08:55 Allopurinol 100 Mg Tablet PO 100 mg DAILY ANGELA Administration Apixaban 5 mg 08/20/24 22:05 08/21/24 08:55 Apixaban 5 Mg Tablet PO 5 mg Q12HR ANGELA Administration Bumetanide 1 mg 08/21/24 09:00 08/21/24 17:00 Bumetanide 1 Mg Tablet PO 1 mg TID ANGELA Administration Calcitriol 0.25 mcg 08/21/24 09:00 08/21/24 08:55 Calcitriol 0.25 Mcg Capsule PO 0.25 mcg [id number] ANGELA Administration Docusate Sodium 100 mg 08/20/24 21:47 Docusate Sodium 100 Mg Capsule PO Q12H PRN constipation Famotidine 20 mg 08/20/24 22:05 08/21/24 17:00 Famotidine 20 Mg Tablet PO 20 mg BID ANGELA Administration Fluticasone Propionate 1 spray 08/21/24 09:00 08/21/24 08:59 Fluticasone Propionate 0.05% Na Spr 16 Gm Btl (*Bkc) NASAL Not Given DAILY ANGELA Gabapentin 300 mg 08/20/24 22:05 08/21/24 17:00 Gabapentin 300 Mg Capsule PO 300 mg TID ANGELA Administration Meropenem 1 gm in 100 mls @ 200 mls/hr 08/20/24 19:00 08/22/24 06:00 IVPB 200 mls/hr Q12H ANGELA Administration Vancomycin HCl 1,500 mg in 500 mls @ 250 mls/hr 08/21/24 20:00 08/21/24 20:59 Vancomycin 1,500 Mg/Ns 500 Ml IVPB 250 mls/hr Q24H ANGELA Administration Levothyroxine Sodium 200 mcg 08/21/24 06:30 08/22/24 06:00 Levothyroxine Sodium 100 Mcg Tablet PO 200 mcg DAILY@0630 ANGELA Administration Loratadine 10 mg 08/20/24 21:47 Loratadine 10 Mg Tablet PO DAILY PRN allergy symptoms Metolazone 5 mg 08/21/24 09:00 08/21/24 08:55 Metolazone 5 Mg Tablet PO 5 mg DAILY ANGELA Administration Metoprolol Tartrate 50 mg 08/20/24 22:05 08/21/24 20:53 Metoprolol Tartrate 50 Mg Tab PO 50 mg Q12HR ANGELA Administration Minoxidil 2.5 mg 08/21/24 09:00 08/21/24 08:56 Minoxidil 2.5 Mg Tablet PO 2.5 mg DAILY ANGELA Administration Morphine Sulfate 2 mg 08/20/24 16:16 08/22/24 06:03 Morphine Sulfate (*Crx) 2 Mg/Ml Inj IV PUSH 2 mg Q2H PRN Administration Pain Rated 7-10 Multi-Ingred Cream/Lotion/Oil/Oint 1 applic 08/21/24 09:00 08/21/24 17:01 Eucerin Cream 454 Gm Jar TOPICAL 1 applic BID ANGELA Administration Polyethylene Glycol 17 gm 08/20/24 21:47 Polyethylene Glycol 3350 17 Gm Powd.Pack PO DAILY PRN Constipation Potassium Chloride 10 meq 08/20/24 22:04 Potassium Chloride 10 Meq Er Tablet PO DAILY PRN leg cramping Promethazine HCl 12.5 mg 08/20/24 16:16 Promethazine Hcl 25 Mg/Ml Ampul IV PUSH Q6H PRN Nausea Spironolactone 25 mg 08/21/24 09:00 08/21/24 08:56 Spironolactone 25 Mg Tablet PO 25 mg DAILY ANGELA Administration Tamsulosin HCl 0.4 mg 08/21/24 09:00 08/21/24 08:55 Tamsulosin Hcl 0.4 Mg Capsule PO 0.4 mg QAM ANGELA Administration Radiology Results: ITS Impressions Ankle X-Ray 08/20/24 12:55 IMPRESSION: Lucency over the right lateral malleolus. Follow-up advised. 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 Tibia/Fibula X-Ray 08/20/24 13:03 IMPRESSION: No definite acute osseous abnormality right leg. Lucencies in the area of the medial and lateral malleoli which may be summation shadows. Clinical correlation and follow-up advised.. Foot X-Ray 08/20/24 13:07 Impression: Extensive soft tissue swelling. No definite evidence for osteomyelitis. Labs Labs: Laboratory Results - last 24 hr 08/21/24 08/22/24 05:27 05:05 WBC 9.8 8.5 RBC 3.43 L 3.27 L Hgb 8.9 L 8.5 L Hct 31.2 L 29.5 L MCV 91.0 90.2 MCH 25.9 L 26.0 MCHC 28.5 L 28.8 L RDW 15.9 H 15.9 H Plt Count 322 277 MPV 10.0 9.5 Immature Gran % (Auto) 0.5 0.6 H Neut % (Auto) 86.5 H 81.1 H Lymph % (Auto) 3.4 L 5.7 L [place] % (Auto) 6.4 9.0 H Eos % (Auto) 2.7 2.8 Baso % (Auto) 0.5 0.8 Lymph # (Auto) 0.33 L 0.48 L [place] # (Auto) 0.6 0.8 H Eos # (Auto) 0.3 0.2 Baso # (Auto) 0.1 0.1 Abs Immat Gran (auto) 0.05 H 0.05 H Absolute Neuts (auto) 8.5 H 6.9 H Absolute Nucleated RBC 0.000 0.000 Band Neutrophils % Not Reportable 0 Nucleated RBC % 0.0 0.0 Platelet Estimate Adequate Adequate Clumped Platelets Present Hypochromasia 1+ 1+ Anisocytosis 1+ 1+ Microcytosis 1+ Ovalocytes 1+ 1+ Schistocytes None seen None seen Sodium 133 L 132 L Potassium 3.7 3.6 Chloride 100 98 Carbon Dioxide 26 27 Anion Gap 7 7 BUN 57 H 56 H Creatinine 2.14 H 2.18 H Estim Creat Clear Calc 42 42 Estimated GFR 30 L 30 L Glucose 99 94 Calcium 7.8 L 8.0 L Magnesium 2.4 H 2.3 Total Bilirubin 0.4 0.3 AST 14 L 12 L ALT 8 7 Alkaline Phosphatase 38 35 L Total Protein 5.0 L 5.0 L Albumin 2.9 L 2.9 L Quality VTE Prophylaxis VTE prophylaxis: pharmacologic ordered
[2024-08-22] MEDS: BUMETANIDE 1 MG TABLET PO ×3 (10:07→17:33)
[2024-08-22] MEDS: allopurinoL 100 MG TABLET PO (10:07)
[2024-08-22] MEDS: METOPROLOL TARTRATE 50 MG TAB PO ×2 (10:07→21:09)
[2024-08-22] MEDS: metOLazone 5 MG TABLET PO (10:07)
[2024-08-22] MEDS: FLUTICASONE PROPIONATE 0.05% NA SPR 16 GM BTL (*BKC) 1 SPRAY NASAL (10:08)
[2024-08-22] MEDS: GABAPENTIN 300 MG CAPSULE PO ×3 (10:08→17:33)
[2024-08-22] MEDS: minoxidiL 2.5 MG TABLET PO (10:08)
[2024-08-22] MEDS: SPIRONOLACTONE 25 MG TABLET PO (10:08)
[2024-08-22] MEDS: TAMSULOSIN HCL 0.4 MG CAPSULE PO (10:08)
[2024-08-22] MEDS: FAMOTIDINE 20 MG TABLET PO ×2 (10:08→17:33)
[2024-08-22] MEDS: LORATADINE 10 MG TABLET PO (10:34)
[2024-08-22] MEDS: polyethylene glycoL 3350 17 GM POWD.PACK PO (10:34)
--- NOTE | 2024-08-22 13:01 | PM.PNGS ---
Progress Note: A&P Assessment and Plan (1) Cellulitis of right foot: Code(s): L03.115 - Cellulitis of right lower limb Status: Acute Assessment and Plan: Continue with current wound care. Possible below knee amputation in a few days if edema somewhat improved and medically optimized. (2) Venous stasis ulcer of right foot: Code(s): I83.015 - Varicose veins of right lower extremity with ulcer other part of foot Status: Acute (3) Lymphedema of both lower extremities: Code(s): I89.0 - Lymphedema, not elsewhere classified Status: Acute (4) AMELIA (obstructive sleep apnea): Code(s): G47.33 - Obstructive sleep apnea (adult) (pediatric) Status: Acute (5) Anemia: Qualifiers: Anemia type: due to chronic kidney disease Chronic kidney disease stage: stage 3 (moderate) Chronic kidney disease stage 3 subtype: unspecified whether 3a or 3b Qualified Code(s): N18.30 - Chronic kidney disease, stage 3 unspecified; D63.1 - Anemia in chronic kidney disease Code(s): D64.9 - Anemia, unspecified Status: Acute (6) CKD (chronic kidney disease) stage 3, GFR 30-59 ml/min: Qualifiers: Chronic kidney disease stage 3 subtype: stage 3b (GFR 30-44) Qualified Code(s): N18.32 - Chronic kidney disease, stage 3b Code(s): N18.3 - Chronic kidney disease, stage 3 (moderate) Status: Acute (7) Peripheral vascular disease: Code(s): I73.9 - Peripheral vascular disease, unspecified Status: Acute (8) Atrial fibrillation: Qualifiers: Atrial fibrillation type: longstanding persistent Qualified Code(s): I48.11 - Longstanding persistent atrial fibrillation Code(s): I48.91 - Unspecified atrial fibrillation Status: Chronic Subjective Subjective Date/Time Seen: 08/22/24 13:01 Interval history: No real changes with right foot. Pain a little better. Exam Extrem: Other: Edema and cellulitis to right foot. 1st/2nd digit ulcer extending to metatarsal region. Chronic lymphedema to RLE. Venous stasis ulcer and dermatitis. Objective Data Vital Signs Vital Signs: Vital Signs - 24 hr 08/21/24 14:00 08/21/24 20:53 08/21/24 21:25 Temperature 98.2 F 98 F Pulse Rate 66 82 82 Respiratory Rate 20 16 Blood Pressure 115/72 109/55 L Pulse Oximetry 98 97 08/21/24 22:48 08/22/24 02:38 08/22/24 06:00 Temperature 98 F Pulse Rate 99 96 76 Respiratory Rate 18 Blood Pressure 115/53 L Pulse Oximetry 95 97 98 08/22/24 10:07 Temperature Pulse Rate 68 Respiratory Rate Blood Pressure Pulse Oximetry Intake/Output Intake/Output: Intake & Output 08/19/24 08/20/24 08/21/24 08/22/24 23:59 23:59 23:59 23:59 Intake Total 200 2560 930 Output Total 2700 1200 Balance 200 -140 -270 Meds/Results Medications: Active Medications Generic Name Dose Route Start Last Admin Trade Name Freq PRN Reason Stop Dose Admin Acetaminophen 650 mg 08/20/24 16:16 08/21/24 06:00 Acetaminophen 325 Mg Tablet PO 650 mg Q4H PRN Administration Mild Pain (1-3) or Fever Hydrocodone Bitart/Acetaminophen 1 tab 08/20/24 16:16 Hydrocodone/Acetaminophen (*Crx) 5-325 Mg Tablet PO Q4H PRN Pain Rated 4-6 Allopurinol 100 mg 08/21/24 09:00 08/22/24 10:07 Allopurinol 100 Mg Tablet PO 100 mg DAILY ANGELA Administration Apixaban 5 mg 08/20/24 22:05 08/21/24 08:55 Apixaban 5 Mg Tablet PO 5 mg Q12HR ANGELA Administration Bumetanide 1 mg 08/21/24 09:00 08/22/24 10:07 Bumetanide 1 Mg Tablet PO 1 mg TID ANGELA Administration Calcitriol 0.25 mcg 08/21/24 09:00 08/21/24 08:55 Calcitriol 0.25 Mcg Capsule PO 0.25 mcg [id number] ANGELA Administration Docusate Sodium 100 mg 08/20/24 21:47 Docusate Sodium 100 Mg Capsule PO Q12H PRN constipation Enoxaparin Sodium 40 mg 08/22/24 10:30 Enoxaparin 40 Mg/0.4 Ml Syringe SUB-Q DAILY ANGELA Famotidine 20 mg 08/20/24 22:05 08/22/24 10:08 Famotidine 20 Mg Tablet PO 20 mg BID ANGELA Administration Fluticasone Propionate 1 spray 08/21/24 09:00 08/22/24 10:08 Fluticasone Propionate 0.05% Na Spr 16 Gm Btl (*Bkc) NASAL 1 spray DAILY ANGELA Administration Gabapentin 300 mg 08/20/24 22:05 08/22/24 10:08 Gabapentin 300 Mg Capsule PO 300 mg TID ANGELA Administration Meropenem 1 gm in 100 mls @ 200 mls/hr 08/20/24 19:00 08/22/24 06:00 IVPB 200 mls/hr Q12H ANGELA Administration Vancomycin HCl 1,500 mg in 500 mls @ 250 mls/hr 08/21/24 20:00 08/21/24 20:59 Vancomycin 1,500 Mg/Ns 500 Ml IVPB 250 mls/hr Q24H ANGELA Administration Levothyroxine Sodium 200 mcg 08/21/24 06:30 08/22/24 06:00 Levothyroxine Sodium 100 Mcg Tablet PO 200 mcg DAILY@0630 ANGELA Administration Loratadine 10 mg 08/22/24 10:05 08/22/24 10:34 Loratadine 10 Mg Tablet PO 10 mg DAILY ANGELA Administration Metolazone 5 mg 08/21/24 09:00 08/22/24 10:07 Metolazone 5 Mg Tablet PO 5 mg DAILY ANGELA Administration Metoprolol Tartrate 50 mg 08/20/24 22:05 08/22/24 10:07 Metoprolol Tartrate 50 Mg Tab PO 50 mg Q12HR ANGELA Administration Minoxidil 2.5 mg 08/21/24 09:00 08/22/24 10:08 Minoxidil 2.5 Mg Tablet PO 2.5 mg DAILY ANGELA Administration Morphine Sulfate 2 mg 08/20/24 16:16 08/22/24 06:03 Morphine Sulfate (*Crx) 2 Mg/Ml Inj IV PUSH 2 mg Q2H PRN Administration Pain Rated 7-10 Multi-Ingred Cream/Lotion/Oil/Oint 1 applic 08/21/24 09:00 08/21/24 17:01 Eucerin Cream 454 Gm Jar TOPICAL 1 applic BID ANGELA Administration Polyethylene Glycol 17 gm 08/22/24 10:05 08/22/24 10:34 Polyethylene Glycol 3350 17 Gm Powd.Pack PO 17 gm DAILY ANGELA Administration Potassium Chloride 10 meq 08/20/24 22:04 Potassium Chloride 10 Meq Er Tablet PO DAILY PRN leg cramping Promethazine HCl 12.5 mg 08/20/24 16:16 Promethazine Hcl 25 Mg/Ml Ampul IV PUSH Q6H PRN Nausea Spironolactone 25 mg 08/21/24 09:00 08/22/24 10:08 Spironolactone 25 Mg Tablet PO 25 mg DAILY ANGELA Administration Tamsulosin HCl 0.4 mg 08/21/24 09:00 08/22/24 10:08 Tamsulosin Hcl 0.4 Mg Capsule PO 0.4 mg QAM ANGELA Administration Radiology Results: ITS Impressions Ankle X-Ray 08/20/24 12:55 IMPRESSION: Lucency over the right lateral malleolus. Follow-up advised. 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 Tibia/Fibula X-Ray 08/20/24 13:03 IMPRESSION: No definite acute osseous abnormality right leg. Lucencies in the area of the medial and lateral malleoli which may be summation shadows. Clinical correlation and follow-up advised.. Foot X-Ray 08/20/24 13:07 Impression: Extensive soft tissue swelling. No definite evidence for osteomyelitis. Labs Labs: Laboratory Results - last 24 hr 08/22/24 05:05 WBC 8.5 RBC 3.27 L Hgb 8.5 L Hct 29.5 L MCV 90.2 MCH 26.0 MCHC 28.8 L RDW 15.9 H Plt Count 277 MPV 9.5 Immature Gran % (Auto) 0.6 H Neut % (Auto) 81.1 H Lymph % (Auto) 5.7 L [place] % (Auto) 9.0 H Eos % (Auto) 2.8 Baso % (Auto) 0.8 Lymph # (Auto) 0.48 L [place] # (Auto) 0.8 H Eos # (Auto) 0.2 Baso # (Auto) 0.1 Abs Immat Gran (auto) 0.05 H Absolute Neuts (auto) 6.9 H Absolute Nucleated RBC 0.000 Band Neutrophils % 0 Nucleated RBC % 0.0 Platelet Estimate Adequate Clumped Platelets Present Hypochromasia 1+ Anisocytosis 1+ Microcytosis 1+ Ovalocytes 1+ Schistocytes None seen Sodium 132 L Potassium 3.6 Chloride 98 Carbon Dioxide 27 Anion Gap 7 BUN 56 H Creatinine 2.18 H Estim Creat Clear Calc 42 Estimated GFR 30 L Glucose 94 Calcium 8.0 L Magnesium 2.3 Total Bilirubin 0.3 AST 12 L ALT 7 Alkaline Phosphatase 35 L Total Protein 5.0 L Albumin 2.9 L
[2024-08-22] MEDS: ENOXAPARIN 40 MG/0.4 ML SYRINGE SUB-Q (13:03)
[2024-08-22] MEDS: EUCERIN CREAM 454 GM JAR 1 APPLIC TOPICAL ×2 (13:06→17:33)
[2024-08-22 19:21] LABS: Vancomycin Trough 17.1 ug/mL (10.0-20.0)
[2024-08-22] MEDS: VANCOMYCIN 1,500 MG/NS 500 ML 1,500 MG/500 ML BAG 250 MG IVPB (21:09)
[2024-08-23] VITALS (8 sets, daily range): BP systolic 103–128; BP diastolic 51–82; PULSE 62–93; RESP 16–18; TEMP 37–37.1; O2SAT 94–98
[2024-08-23 05:31] LABS: Basophils Absolute Auto 0.1 K/mm3 (0.0-0.1); Basophils Percent Auto 0.7 % (0.2-1.2); Eosinophils Absolute Auto 0.3 K/mm3 (0-0.3); Hematocrit 28.9 % (42.0-52.0); Hemoglobin 8.2 g/dL (14.0-18.0); Immature Granulocyte Absolute 0.04 K/mm3 (0.00-0.031); Immature Granulocyte Percent A 0.5 % (0-0.5); Lymphocytes Absolute Auto 0.43 K/mm3 (0.9-3.2); Lymphocytes Percent Auto 5.3 % (18.3-44.2); Mean Corpuscular HGB Conc 28.4 g/dl (32-36); Mean Corpuscular Hemoglobin 26.1 pg (26-34); Mean Platelet Volume 9.8 fl (7.4-10.4); Monocytes Absolute Auto 0.9 K/mm3 (0.1-0.6); Monocytes Percent Auto 10.6 % (2.6-8.5); Neutrophils Absolute Auto 6.3 K/mm3 (1.3-6.7); Neutrophils Percent Auto 78.9 % (45.5-73.1); Platelet Count Result 261 k/mm3 (150-375); Red Blood Count 3.14 M/mm3 (4.6-6.20); Red Cell Distribution Width 15.9 % (11.5-14.5)
[2024-08-23 05:43] LABS: Alanine Aminotransferase 6 U/L (6-50); Albumin Level 2.6 g/dL (3.5-5.1); Alkaline Phosphatase 33 U/L (38-126); Anion Gap 5 mmol/L (4-12); Aspartate Amino Transferase 14 U/L (17-59); Bilirubin,Total 0.2 mg/dL (0.2-1.3); Blood Urea Nitrogen 57 mg/dL (9-20); Calcium 8.1 mg/dL (8.4-10.2); Carbon Dioxide 29 mmol/L (22-30); Chloride 97 mmol/L (98-107); Estimated CRCL calculation 44 ml/min; Estimated Glomerular Filt Rate 31; Glucose 94 mg/dL (65-110); Magnesium 2.1 mg/dL (1.6-2.3); Potassium 3.7 mmol/L (3.4-5.0); Sodium 131 mmol/L (137-145)
[2024-08-23 06:03] LABS: INR 1.3
[2024-08-23] MEDS: LEVOTHYROXINE SODIUM 100 MCG TABLET 200 MCG PO (06:13)
[2024-08-23] MEDS: MEROPENEM 1 GM/NS 100 ML 1 GM/100 ML BAG IVPB ×2 (06:13→18:15)
[2024-08-23 07:09] LABS: Anisocytosis 1+; Hypochromasia 1+; Platelet Estimate Adequate (Adequate)
[2024-08-23 07:10] LABS: Schistocytes None Seen
[2024-08-23] MEDS: FLUTICASONE PROPIONATE 0.05% NA SPR 16 GM BTL (*BKC) 1 SPRAY NASAL (09:21)
[2024-08-23] MEDS: polyethylene glycoL 3350 17 GM POWD.PACK PO (09:22)
[2024-08-23] MEDS: ENOXAPARIN 40 MG/0.4 ML SYRINGE SUB-Q (09:22)
[2024-08-23] MEDS: METOPROLOL TARTRATE 50 MG TAB PO ×2 (09:23→20:44)
[2024-08-23] MEDS: SPIRONOLACTONE 25 MG TABLET PO (09:24)
[2024-08-23] MEDS: minoxidiL 2.5 MG TABLET PO (09:24)
[2024-08-23] MEDS: FAMOTIDINE 20 MG TABLET PO ×2 (09:24→17:39)
[2024-08-23] MEDS: EUCERIN CREAM 454 GM JAR 1 APPLIC TOPICAL ×2 (09:24→17:40)
[2024-08-23] MEDS: GABAPENTIN 300 MG CAPSULE PO ×3 (09:24→17:39)
[2024-08-23] MEDS: metOLazone 5 MG TABLET PO (09:24)
[2024-08-23] MEDS: TAMSULOSIN HCL 0.4 MG CAPSULE PO (09:24)
[2024-08-23] MEDS: allopurinoL 100 MG TABLET PO (09:24)
[2024-08-23] MEDS: BUMETANIDE 1 MG TABLET PO ×2 (09:24→14:28)
[2024-08-23] MEDS: LORATADINE 10 MG TABLET PO (09:25)
[2024-08-23] MEDS: WATER FOR IRRIGATION, STERILE 1,000 ML BOTTLE 1000 ML (09:39)
--- NOTE | 2024-08-23 10:40 | PM.IMPN ---
Progress Note: A&P Assessment and Plan (1) Venous stasis ulcer of right foot: Code(s): I83.015 - Varicose veins of right lower extremity with ulcer other part of foot Status: Acute Assessment and Plan: - ankle XR: Lucency over the right lateral malleolus. Follow-up advised. 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 - tib fib XR: No definite acute osseous abnormality right leg. Lucencies in the area of the medial and lateral malleoli which may be summation shadows. Clinical correlation and follow-up advised.. - foot XR: Extensive soft tissue swelling. No definite evidence for osteomyelitis. - started on Levaquin and Flagyl on 08/20/2024. Reviewed micro and patient has history of Pseudomonas and Staph with multiple resistances in March of 2024. Previously placed on meropenem after case was reviewed with ID pharmacist during the patient's most recent admission in May of 2024. Will place patient back on meropenem as well as vancomycin and obtain wound culture. - wound RN consulted. Recommendations: daily cleanse right lower leg and foot by the 5th toe, apply antifungal powder to open weeping maceration areas. place ABD pads and roll gauze cover if patient allows, if not place nito pads under and over foot and leg to control exudate and change daily and PRN if heavily soiled. -Surgery consulted, plan for a below-knee amputation of the right leg in the next several days. HOLD eliquis. DVT prophylaxis Lovenox 40 mg subq daily. -Blood cultures no growth to date. (2) Peripheral vascular disease: Code(s): I73.9 - Peripheral vascular disease, unspecified Status: Acute Assessment and Plan: - follows with Chris DE LEON with vascular surgery. Reportedly told at most recent visit on XX that there were no further interventions to increased blood flow to his affected extremity as the disease is below the knee. (3) CHF (congestive heart failure): Qualifiers: Heart failure chronicity: chronic Heart failure type: diastolic Qualified Code(s): I50.32 - Chronic diastolic (congestive) heart failure Code(s): I50.9 - Heart failure, unspecified Status: Chronic Assessment and Plan: - echo, previous: Estimated EF 65-70%, grade 1 diastolic dysfunction. Technically difficult echo. See report for details. - continue home medications: Bumex (adjusting administration times to help patient get improved sleep), metolazone, spironolactone. Hold Diamox, contraindicated in CKD stage 4. - monitor I&Os daily weights (4) Atrial fibrillation: Qualifiers: Atrial fibrillation type: longstanding persistent Qualified Code(s): I48.11 - Longstanding persistent atrial fibrillation Code(s): I48.91 - Unspecified atrial fibrillation Status: Chronic Assessment and Plan: - continue home medications: Eliquis and Metoprolol. - Eliquis is on hold for surgery later in week, right BKA. - Lovenox 40 mg subq daily. (5) Chronic anemia: Code(s): D64.9 - Anemia, unspecified Status: Acute Assessment and Plan: - Hgb 8.2, previously 8.4 on 05/19/2024. At baseline. - transfuse if <7. - monitor (6) CKD (chronic kidney disease) stage 3, GFR 30-59 ml/min: Qualifiers: Chronic kidney disease stage 3 subtype: stage 3b (GFR 30-44) Qualified Code(s): N18.32 - Chronic kidney disease, stage 3b Code(s): N18.3 - Chronic kidney disease, stage 3 (moderate) Status: Acute Assessment and Plan: - creatinine 2.08 and GFR 31, previously 2.23 and GFR 29 on 05/19/2024 - trend renal function - trend electrolytes, correct as needed (7) Essential (primary) hypertension: Code(s): I10 - Essential (primary) hypertension Status: Chronic Assessment and Plan: - chronic, currently 103/56. - continue home medications: Metoprolol - monitor (8) AMELIA (obstructive sleep apnea): Code(s): G47.33 - Obstructive sleep apnea (adult) (pediatric) Status: Acute Assessment and Plan: - continue home CPAP Plan Diet: Heart healthy GI Prophylaxis: Not currently indicated DVT Prophylaxis: Eliquis IV fluids: None Lines/Tubes: Peripheral IV Code Status: Full code Subjective Date/time seen: 08/23/24 10:40 Interval history: Patient denies pain at present. Patient denies chest pain, palpitations, headache, dizziness, nausea, or vomiting. Patient reports that he was up last night peeing every 30 minutes. He takes his Bumex at home at 7 am, 11 am, and 3 pm. Review of Systems Review of Systems: All systems reviewed & are unremarkable except as noted in HPI and below Exam Const: General: comfortable and no acute distress Resp: Effort & Inspection: normal respiratory effort Auscultation: clear to auscultation bilaterally Cardio: Rate: regular rate Rhythm: regular rhythm GI: GI Palp: Yes Soft to palpation Auscultation: normal bowel sounds Skin: Other: Significant erythema and swelling to right foot. Skin sloughing with surrounding tissue weeping maceration tips of toes to calf. 4+ edema, erythema, warmth and pain reported when foot touched. Some areas of eschar are present by the toes. Neuro: Speech: normal speech Extrem: Other: Significant edema and erythema it is her right foot. Right great toe and 2nd toe have open wound in the interdigit space and reactive edema and induration. Patient also has a lateral calf wound with chronic skin thickening and eschar. This appears to be just above the ankle. Chronic venous stasis dermatitis to right lower extremity and chronic lymphedema. Psych: Mental Status: mental status grossly normal Affect: normal affect Objective Data Vital Signs Vital Signs: Vital Signs - 24 hr 08/22/24 14:00 08/22/24 19:45 08/22/24 20:00 Temperature 98.4 F Pulse Rate 79 74 Respiratory Rate 18 Blood Pressure 106/53 L Pulse Oximetry 97 94 Oxygen Delivery Room Air Room Air Fraction of Inspired Oxygen 21 08/22/24 21:09 08/22/24 21:19 08/22/24 23:30 Temperature 98.8 F Pulse Rate 80 78 80 Respiratory Rate 18 Blood Pressure 122/64 Pulse Oximetry 99 96 Oxygen Delivery Fraction of Inspired Oxygen 08/23/24 02:11 08/23/24 04:12 08/23/24 09:23 Temperature 98.6 F Pulse Rate 67 62 93 Respiratory Rate 18 Blood Pressure 103/56 L Pulse Oximetry 97 98 Oxygen Delivery Fraction of Inspired Oxygen Intake/Output Intake/Output: Intake & Output 08/20/24 08/21/24 08/22/24 08/23/24 23:59 23:59 23:59 23:59 Intake Total 200 3060 3690 1050 Output Total 2700 2000 1450 Balance 201 361 1788 -400 Meds/Results Medications: Active Medications Generic Name Dose Route Start Last Admin Trade Name Freq PRN Reason Stop Dose Admin Acetaminophen 650 mg 08/20/24 16:16 08/21/24 06:00 Acetaminophen 325 Mg Tablet PO 650 mg Q4H PRN Administration Mild Pain (1-3) or Fever Hydrocodone Bitart/Acetaminophen 1 tab 08/20/24 16:16 Hydrocodone/Acetaminophen (*Crx) 5-325 Mg Tablet PO Q4H PRN Pain Rated 4-6 Allopurinol 100 mg 08/21/24 09:00 08/23/24 09:24 Allopurinol 100 Mg Tablet PO 100 mg DAILY ANGELA Administration Apixaban 5 mg 08/20/24 22:05 08/21/24 08:55 Apixaban 5 Mg Tablet PO 5 mg Q12HR ANGELA Administration Bumetanide 1 mg 08/21/24 09:00 08/23/24 09:24 Bumetanide 1 Mg Tablet PO 1 mg TID ANGELA Administration Calcitriol 0.25 mcg 08/21/24 09:00 08/21/24 08:55 Calcitriol 0.25 Mcg Capsule PO 0.25 mcg MoWeFr@0900 ANGELA Administration Docusate Sodium 100 mg 08/20/24 21:47 Docusate Sodium 100 Mg Capsule PO Q12H PRN constipation Enoxaparin Sodium 40 mg 08/22/24 10:30 08/23/24 09:22 Enoxaparin 40 Mg/0.4 Ml Syringe SUB-Q 40 mg DAILY ANGELA Administration Famotidine 20 mg 08/20/24 22:05 08/23/24 09:24 Famotidine 20 Mg Tablet PO 20 mg BID ANGELA Administration Fluticasone Propionate 1 spray 08/21/24 09:00 08/23/24 09:21 Fluticasone Propionate 0.05% Na Spr 16 Gm Btl (*Bkc) NASAL 1 spray DAILY ANGELA Administration Gabapentin 300 mg 08/20/24 22:05 08/23/24 09:24 Gabapentin 300 Mg Capsule PO 300 mg TID ANGELA Administration Meropenem 1 gm in 100 mls @ 200 mls/hr 08/20/24 19:00 08/23/24 07:01 IVPB Infused Q12H ANGELA Infusion Vancomycin HCl 1,500 mg in 500 mls @ 250 mls/hr 08/21/24 20:00 08/22/24 23:10 Vancomycin 1,500 Mg/Ns 500 Ml IVPB Infused Q24H ANGELA Infusion Levothyroxine Sodium 200 mcg 08/21/24 06:30 08/23/24 06:13 Levothyroxine Sodium 100 Mcg Tablet PO 200 mcg DAILY@0630 ANGELA Administration Loratadine 10 mg 08/22/24 10:05 08/23/24 09:25 Loratadine 10 Mg Tablet PO 10 mg DAILY ANGELA Administration Metolazone 5 mg 08/21/24 09:00 08/23/24 09:24 Metolazone 5 Mg Tablet PO 5 mg DAILY ANGELA Administration Metoprolol Tartrate 50 mg 08/20/24 22:05 08/23/24 09:23 Metoprolol Tartrate 50 Mg Tab PO 50 mg Q12HR ANGELA Administration Minoxidil 2.5 mg 08/21/24 09:00 08/23/24 09:24 Minoxidil 2.5 Mg Tablet PO 2.5 mg DAILY ANGELA Administration Morphine Sulfate 2 mg 08/20/24 16:16 08/22/24 13:04 Morphine Sulfate (*Crx) 2 Mg/Ml Inj IV PUSH 2 mg Q2H PRN Administration Pain Rated 7-10 Multi-Ingred Cream/Lotion/Oil/Oint 1 applic 08/21/24 09:00 08/23/24 09:24 Eucerin Cream 454 Gm Jar TOPICAL 1 applic BID ANGELA Administration Polyethylene Glycol 17 gm 08/22/24 10:05 08/23/24 09:22 Polyethylene Glycol 3350 17 Gm Powd.Pack PO 17 gm DAILY ANGELA Administration Potassium Chloride 10 meq 08/20/24 22:04 Potassium Chloride 10 Meq Er Tablet PO DAILY PRN leg cramping Promethazine HCl 12.5 mg 08/20/24 16:16 Promethazine Hcl 25 Mg/Ml Ampul IV PUSH Q6H PRN Nausea Spironolactone 25 mg 08/21/24 09:00 08/23/24 09:24 Spironolactone 25 Mg Tablet PO 25 mg DAILY ANGELA Administration Tamsulosin HCl 0.4 mg 08/21/24 09:00 08/23/24 09:24 Tamsulosin Hcl 0.4 Mg Capsule PO 0.4 mg QAM ANGELA Administration Radiology Results: ITS Impressions Ankle X-Ray 08/20/24 12:55 IMPRESSION: Lucency over the right lateral malleolus. Follow-up advised. 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 Tibia/Fibula X-Ray 08/20/24 13:03 IMPRESSION: No definite acute osseous abnormality right leg. Lucencies in the area of the medial and lateral malleoli which may be summation shadows. Clinical correlation and follow-up advised.. Foot X-Ray 08/20/24 13:07 Impression: Extensive soft tissue swelling. No definite evidence for osteomyelitis. Labs Labs: Laboratory Results - last 24 hr 08/22/24 08/23/24 18:52 05:13 WBC 8.0 RBC 3.14 L Hgb 8.2 L Hct 28.9 L MCV 92.0 MCH 26.1 MCHC 28.4 L RDW 15.9 H Plt Count 261 MPV 9.8 Immature Gran % (Auto) 0.5 Neut % (Auto) 78.9 H Lymph % (Auto) 5.3 L [place] % (Auto) 10.6 H Eos % (Auto) 4.0 Baso % (Auto) 0.7 Lymph # (Auto) 0.43 L [place] # (Auto) 0.9 H Eos # (Auto) 0.3 Baso # (Auto) 0.1 Abs Immat Gran (auto) 0.04 H Absolute Neuts (auto) 6.3 Absolute Nucleated RBC 0.000 Band Neutrophils % Not Reportable Nucleated RBC % 0.0 Platelet Estimate Adequate Hypochromasia 1+ Anisocytosis 1+ Schistocytes None seen PT 17.0 H INR 1.3 APTT 33.0 Sodium 131 L Potassium 3.7 Chloride 97 L Carbon Dioxide 29 Anion Gap 5 BUN 57 H Creatinine 2.08 H Estim Creat Clear Calc 44 Estimated GFR 31 L Glucose 94 Calcium 8.1 L Magnesium 2.1 Total Bilirubin 0.2 AST 14 L ALT 6 Alkaline Phosphatase 33 L Total Protein 5.0 L Albumin 2.6 L Vancomycin Trough 17.1 Quality VTE Prophylaxis VTE prophylaxis: pharmacologic ordered
[2024-08-23] MEDS: ACETAMINOPHEN 325 MG TABLET 650 MG PO (10:50)
[2024-08-23] MEDS: VANCOMYCIN 1,500 MG/NS 500 ML 1,500 MG/500 ML BAG 250 MG IVPB (20:44)
[2024-08-24] VITALS (7 sets, daily range): BP systolic 122–132; BP diastolic 52–59; PULSE 69–82; RESP 14–16; TEMP 36.1–37.1; O2SAT 94–98
[2024-08-24 05:44] LABS: Basophils Absolute Auto 0.1 K/mm3 (0.0-0.1); Eosinophils Absolute Auto 0.4 K/mm3 (0-0.3); Eosinophils Percent Auto 4.7 % (0-4.4); Hematocrit 29.6 % (42.0-52.0); Hemoglobin 8.6 g/dL (14.0-18.0); Immature Granulocyte Absolute 0.03 K/mm3 (0.00-0.031); Immature Granulocyte Percent A 0.4 % (0-0.5); Lymphocytes Absolute Auto 0.53 K/mm3 (0.9-3.2); Lymphocytes Percent Auto 6.8 % (18.3-44.2); Mean Corpuscular HGB Conc 29.1 g/dl (32-36); Mean Corpuscular Volume 89.4 fl (80-100); Mean Platelet Volume 9.8 fl (7.4-10.4); Monocytes Absolute Auto 0.8 K/mm3 (0.1-0.6); Monocytes Percent Auto 9.7 % (2.6-8.5); Neutrophils Absolute Auto 6.1 K/mm3 (1.3-6.7); Neutrophils Percent Auto 77.4 % (45.5-73.1); Platelet Count Result 281 k/mm3 (150-375); Red Blood Count 3.31 M/mm3 (4.6-6.20); Red Cell Distribution Width 16.1 % (11.5-14.5); White Blood Count 7.8 K/mm3 (4.5-10.0)
[2024-08-24] MEDS: MEROPENEM 1 GM/NS 100 ML 1 GM/100 ML BAG IVPB ×2 (05:45→20:00)
[2024-08-24] MEDS: BUMETANIDE 1 MG TABLET PO ×3 (05:46→13:44)
[2024-08-24] MEDS: LEVOTHYROXINE SODIUM 100 MCG TABLET 200 MCG PO (05:46)
[2024-08-24 05:55] LABS: Alanine Aminotransferase < 6 U/L (6-50); Albumin Level 2.7 g/dL (3.5-5.1); Alkaline Phosphatase 35 U/L (38-126); Anion Gap 4 mmol/L (4-12); Aspartate Amino Transferase 14 U/L (17-59); Bilirubin,Total 0.3 mg/dL (0.2-1.3); Blood Urea Nitrogen 55 mg/dL (9-20); Carbon Dioxide 33 mmol/L (22-30); Chloride 97 mmol/L (98-107); Estimated CRCL calculation 47 ml/min; Estimated Glomerular Filt Rate 34; Glucose 89 mg/dL (65-110); Potassium 3.7 mmol/L (3.4-5.0); Sodium 134 mmol/L (137-145)
[2024-08-24 06:19] LABS: Anisocytosis 1+; Hypochromasia 1+; Ovalocytes 1+; Platelet Estimate Adequate (Adequate); Schistocytes None Seen
[2024-08-24] MEDS: FLUTICASONE PROPIONATE 0.05% NA SPR 16 GM BTL (*BKC) 1 SPRAY NASAL (09:19)
[2024-08-24] MEDS: metOLazone 5 MG TABLET PO (09:20)
[2024-08-24] MEDS: polyethylene glycoL 3350 17 GM POWD.PACK PO (09:20)
[2024-08-24] MEDS: METOPROLOL TARTRATE 50 MG TAB PO ×2 (09:20→19:49)
[2024-08-24] MEDS: allopurinoL 100 MG TABLET PO (09:20)
[2024-08-24] MEDS: SPIRONOLACTONE 25 MG TABLET PO (09:37)
[2024-08-24] MEDS: LORATADINE 10 MG TABLET PO (09:37)
[2024-08-24] MEDS: FAMOTIDINE 20 MG TABLET PO ×2 (09:37→18:14)
[2024-08-24] MEDS: minoxidiL 2.5 MG TABLET PO (09:37)
[2024-08-24] MEDS: GABAPENTIN 300 MG CAPSULE PO ×3 (09:37→18:14)
[2024-08-24] MEDS: TAMSULOSIN HCL 0.4 MG CAPSULE PO (09:37)
[2024-08-24] MEDS: ENOXAPARIN 40 MG/0.4 ML SYRINGE SUB-Q (09:38)
[2024-08-24] MEDS: EUCERIN CREAM 454 GM JAR 1 APPLIC TOPICAL ×2 (09:38→18:15)
[2024-08-24] MEDS: calcitrioL 0.25 MCG CAPSULE PO (09:43)
--- NOTE | 2024-08-24 10:16 | PM.PNGS ---
Progress Note: A&P Assessment and Plan (1) Cellulitis of right foot: Code(s): L03.115 - Cellulitis of right lower limb Status: Acute Assessment and Plan: Continue with current wound care. Patient still wishes to proceed with right below knee amputation. Will make him NPO after midnight and we will try adding him onto the surgery schedule for tomorrow. (2) Venous stasis ulcer of right foot: Code(s): I83.015 - Varicose veins of right lower extremity with ulcer other part of foot Status: Acute (3) Lymphedema of both lower extremities: Code(s): I89.0 - Lymphedema, not elsewhere classified Status: Acute (4) AMELIA (obstructive sleep apnea): Code(s): G47.33 - Obstructive sleep apnea (adult) (pediatric) Status: Acute (5) Anemia: Qualifiers: Anemia type: due to chronic kidney disease Chronic kidney disease stage: stage 3 (moderate) Chronic kidney disease stage 3 subtype: unspecified whether 3a or 3b Qualified Code(s): N18.30 - Chronic kidney disease, stage 3 unspecified; D63.1 - Anemia in chronic kidney disease Code(s): D64.9 - Anemia, unspecified Status: Acute (6) CKD (chronic kidney disease) stage 3, GFR 30-59 ml/min: Qualifiers: Chronic kidney disease stage 3 subtype: stage 3b (GFR 30-44) Qualified Code(s): N18.32 - Chronic kidney disease, stage 3b Code(s): N18.3 - Chronic kidney disease, stage 3 (moderate) Status: Acute (7) Peripheral vascular disease: Code(s): I73.9 - Peripheral vascular disease, unspecified Status: Acute (8) Atrial fibrillation: Qualifiers: Atrial fibrillation type: longstanding persistent Qualified Code(s): I48.11 - Longstanding persistent atrial fibrillation Code(s): I48.91 - Unspecified atrial fibrillation Status: Chronic Plan I have discussed the patient's case and plan of care with Dr. Malone. Subjective Subjective Date/Time Seen: 08/24/24 10:16 Patient reports: no new complaints Interval history: No acute issues overnight. Patient reports swelling and redness to right lower extremity is improving. Exam Extrem: Other: Right foot edema and cellulitis with an ulcer on dorsal foot between the first and second digit extending to the metatarsal region with scant purulence drainage and a soft overlying necrotic eschar Chronic lymphedema with chronic venous stasis skin changes and dermatitis to the right lower leg. Objective Data Vital Signs Vital Signs: Vital Signs - 24 hr 08/23/24 14:00 08/23/24 20:44 08/23/24 21:35 Temperature 98.8 F Pulse Rate 79 80 78 Respiratory Rate 16 Blood Pressure 105/51 L Pulse Oximetry 94 96 Oxygen Delivery CPAP 08/23/24 21:59 08/24/24 02:25 08/24/24 06:00 Temperature 98.8 F 98.4 F Pulse Rate 72 77 Respiratory Rate 16 14 Blood Pressure 128/82 126/52 L Pulse Oximetry 98 98 Oxygen Delivery CPAP 08/24/24 09:20 Temperature Pulse Rate 81 Respiratory Rate Blood Pressure Pulse Oximetry Oxygen Delivery Intake/Output Intake/Output: Intake & Output 08/21/24 08/22/24 08/23/24 08/24/24 23:59 23:59 23:59 23:59 Intake Total 3060 3690 3260 1100 Output Total 2700 2000 3675 1300 Balance 360 1690 -415 -200 Meds/Results Medications: Active Medications Generic Name Dose Route Start Last Admin Trade Name Freq PRN Reason Stop Dose Admin Acetaminophen 650 mg 08/20/24 16:16 08/23/24 10:50 Acetaminophen 325 Mg Tablet PO 650 mg Q4H PRN Administration Mild Pain (1-3) or Fever Hydrocodone Bitart/Acetaminophen 1 tab 08/20/24 16:16 Hydrocodone/Acetaminophen (*Crx) 5-325 Mg Tablet PO Q4H PRN Pain Rated 4-6 Allopurinol 100 mg 08/21/24 09:00 08/24/24 09:20 Allopurinol 100 Mg Tablet PO 100 mg DAILY ANGELA Administration Apixaban 5 mg 08/20/24 22:05 08/21/24 08:55 Apixaban 5 Mg Tablet PO 5 mg Q12HR ANGELA Administration Bumetanide 1 mg 08/23/24 14:00 08/24/24 09:43 Bumetanide 1 Mg Tablet PO 1 mg TID@0600,1000,1400 ANGELA Administration Calcitriol 0.25 mcg 08/21/24 09:00 08/24/24 09:43 Calcitriol 0.25 Mcg Capsule PO 0.25 mcg MoWeFr@0900 ANGELA Administration Docusate Sodium 100 mg 08/20/24 21:47 Docusate Sodium 100 Mg Capsule PO Q12H PRN constipation Enoxaparin Sodium 40 mg 08/22/24 10:30 08/24/24 09:38 Enoxaparin 40 Mg/0.4 Ml Syringe SUB-Q 40 mg DAILY ANGELA Administration Famotidine 20 mg 08/20/24 22:05 08/24/24 09:37 Famotidine 20 Mg Tablet PO 20 mg BID ANGELA Administration Fluticasone Propionate 1 spray 08/21/24 09:00 08/24/24 09:19 Fluticasone Propionate 0.05% Na Spr 16 Gm Btl (*Bkc) NASAL 1 spray DAILY ANGELA Administration Gabapentin 300 mg 08/20/24 22:05 08/24/24 09:37 Gabapentin 300 Mg Capsule PO 300 mg TID ANGELA Administration Meropenem 1 gm in 100 mls @ 200 mls/hr 08/20/24 19:00 08/24/24 06:39 IVPB Infused Q12H ANGELA Infusion Vancomycin HCl 1,500 mg in 500 mls @ 250 mls/hr 08/21/24 20:00 08/23/24 22:30 Vancomycin 1,500 Mg/Ns 500 Ml IVPB Infused Q24H ANGELA Infusion Levothyroxine Sodium 200 mcg 08/21/24 06:30 08/24/24 05:46 Levothyroxine Sodium 100 Mcg Tablet PO 200 mcg DAILY@0630 ANGELA Administration Loratadine 10 mg 08/22/24 10:05 08/24/24 09:37 Loratadine 10 Mg Tablet PO 10 mg DAILY ANGELA Administration Metolazone 5 mg 08/21/24 09:00 08/24/24 09:20 Metolazone 5 Mg Tablet PO 5 mg DAILY ANGELA Administration Metoprolol Tartrate 50 mg 08/20/24 22:05 08/24/24 09:20 Metoprolol Tartrate 50 Mg Tab PO 50 mg Q12HR ANGELA Administration Minoxidil 2.5 mg 08/21/24 09:00 08/24/24 09:37 Minoxidil 2.5 Mg Tablet PO 2.5 mg DAILY ANGELA Administration Morphine Sulfate 2 mg 08/20/24 16:16 08/22/24 13:04 Morphine Sulfate (*Crx) 2 Mg/Ml Inj IV PUSH 2 mg Q2H PRN Administration Pain Rated 7-10 Multi-Ingred Cream/Lotion/Oil/Oint 1 applic 08/21/24 09:00 08/24/24 09:38 Eucerin Cream 454 Gm Jar TOPICAL 1 applic BID ANGELA Administration Polyethylene Glycol 17 gm 08/22/24 10:05 08/24/24 09:20 Polyethylene Glycol 3350 17 Gm Powd.Pack PO 17 gm DAILY ANGELA Administration Potassium Chloride 10 meq 08/20/24 22:04 Potassium Chloride 10 Meq Er Tablet PO DAILY PRN leg cramping Promethazine HCl 12.5 mg 08/20/24 16:16 Promethazine Hcl 25 Mg/Ml Ampul IV PUSH Q6H PRN Nausea Spironolactone 25 mg 08/21/24 09:00 08/24/24 09:37 Spironolactone 25 Mg Tablet PO 25 mg DAILY ANGELA Administration Tamsulosin HCl 0.4 mg 08/21/24 09:00 08/24/24 09:37 Tamsulosin Hcl 0.4 Mg Capsule PO 0.4 mg QAM ANGELA Administration Radiology Results: ITS Impressions Ankle X-Ray 08/20/24 12:55 IMPRESSION: Lucency over the right lateral malleolus. Follow-up advised. 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 Tibia/Fibula X-Ray 08/20/24 13:03 IMPRESSION: No definite acute osseous abnormality right leg. Lucencies in the area of the medial and lateral malleoli which may be summation shadows. Clinical correlation and follow-up advised.. Foot X-Ray 08/20/24 13:07 Impression: Extensive soft tissue swelling. No definite evidence for osteomyelitis. Labs Labs: Laboratory Results - last 24 hr 08/24/24 08/24/24 05:19 05:20 WBC 7.8 RBC 3.31 L Hgb 8.6 L Hct 29.6 L MCV 89.4 MCH 26.0 MCHC 29.1 L RDW 16.1 H Plt Count 281 MPV 9.8 Immature Gran % (Auto) 0.4 Neut % (Auto) 77.4 H Lymph % (Auto) 6.8 L [place] % (Auto) 9.7 H Eos % (Auto) 4.7 H Baso % (Auto) 1.0 Lymph # (Auto) 0.53 L [place] # (Auto) 0.8 H Eos # (Auto) 0.4 H Baso # (Auto) 0.1 Abs Immat Gran (auto) 0.03 Absolute Neuts (auto) 6.1 Absolute Nucleated RBC 0.000 Band Neutrophils % Not Reportable Nucleated RBC % 0.0 Platelet Estimate Adequate Hypochromasia 1+ Anisocytosis 1+ Ovalocytes 1+ Schistocytes None seen Sodium 134 L Potassium 3.7 Chloride 97 L Carbon Dioxide 33 H Anion Gap 4 BUN 55 H Creatinine 1.95 H Estim Creat Clear Calc 47 Estimated GFR 34 L Glucose 89 Calcium 8.0 L Magnesium 2.0 Total Bilirubin 0.3 AST 14 L ALT < 6 L Alkaline Phosphatase 35 L Total Protein 5.0 L Albumin 2.7 L
--- NOTE | 2024-08-24 11:02 | PM.IMPN ---
Progress Note: A&P Assessment and Plan (1) Venous stasis ulcer of right foot: Code(s): I83.015 - Varicose veins of right lower extremity with ulcer other part of foot Status: Acute Assessment and Plan: - ankle XR: Lucency over the right lateral malleolus. Follow-up advised. 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 - tib fib XR: No definite acute osseous abnormality right leg. Lucencies in the area of the medial and lateral malleoli which may be summation shadows. Clinical correlation and follow-up advised.. - foot XR: Extensive soft tissue swelling. No definite evidence for osteomyelitis. - started on Levaquin and Flagyl on 08/20/2024. Reviewed micro and patient has history of Pseudomonas and Staph with multiple resistances in March of 2024. Previously placed on meropenem after case was reviewed with ID pharmacist during the patient's most recent admission in May of 2024. Will place patient back on meropenem as well as vancomycin and obtain wound culture. - wound RN consulted. Recommendations: daily cleanse right lower leg and foot by the 5th toe, apply antifungal powder to open weeping maceration areas. place ABD pads and roll gauze cover if patient allows, if not place nito pads under and over foot and leg to control exudate and change daily and PRN if heavily soiled. -Surgery consulted, plan for a below-knee amputation of the right leg, added to surgery schedule for tomorrow. HOLD eliquis. DVT prophylaxis Lovenox 40 mg subq daily. -Blood cultures no growth to date. (2) Peripheral vascular disease: Code(s): I73.9 - Peripheral vascular disease, unspecified Status: Acute Assessment and Plan: - follows with Chris DE LEON with vascular surgery. Reportedly told at most recent visit on XX that there were no further interventions to increased blood flow to his affected extremity as the disease is below the knee. (3) CHF (congestive heart failure): Qualifiers: Heart failure chronicity: chronic Heart failure type: diastolic Qualified Code(s): I50.32 - Chronic diastolic (congestive) heart failure Code(s): I50.9 - Heart failure, unspecified Status: Chronic Assessment and Plan: - echo, previous: Estimated EF 65-70%, grade 1 diastolic dysfunction. Technically difficult echo. See report for details. - continue home medications: Bumex (adjusting administration times to help patient get improved sleep), metolazone, spironolactone. Hold Diamox, contraindicated in CKD stage 4. - monitor I&Os daily weights (4) Atrial fibrillation: Qualifiers: Atrial fibrillation type: longstanding persistent Qualified Code(s): I48.11 - Longstanding persistent atrial fibrillation Code(s): I48.91 - Unspecified atrial fibrillation Status: Chronic Assessment and Plan: - continue home medications: Eliquis and Metoprolol. - Eliquis is on hold for surgery later in week, right BKA. - Lovenox 40 mg subq daily, hold dose 08/25 AM. (5) Chronic anemia: Code(s): D64.9 - Anemia, unspecified Status: Acute Assessment and Plan: - Hgb 8.6, previously 8.4 on 05/19/2024. At baseline. - transfuse if <7. - monitor (6) CKD (chronic kidney disease) stage 3, GFR 30-59 ml/min: Qualifiers: Chronic kidney disease stage 3 subtype: stage 3b (GFR 30-44) Qualified Code(s): N18.32 - Chronic kidney disease, stage 3b Code(s): N18.3 - Chronic kidney disease, stage 3 (moderate) Status: Acute Assessment and Plan: - creatinine 1.95 and GFR 34, previously 2.23 and GFR 29 on 05/19/2024 - trend renal function - trend electrolytes, correct as needed (7) Essential (primary) hypertension: Code(s): I10 - Essential (primary) hypertension Status: Chronic Assessment and Plan: - chronic, currently 126/52. - continue home medications: Metoprolol - monitor (8) AMELIA (obstructive sleep apnea): Code(s): G47.33 - Obstructive sleep apnea (adult) (pediatric) Status: Acute Assessment and Plan: - continue home CPAP Plan Diet: Heart healthy GI Prophylaxis: Not currently indicated DVT Prophylaxis: Eliquis IV fluids: None Lines/Tubes: Peripheral IV Code Status: Full code Subjective Date/time seen: 08/24/24 11:02 Interval history: Patient reports pain in right leg is a 2, frequent, and aching. Patient denies chest pain, palpitations, headache, dizziness, nausea, or vomiting. Patient states that he is ready for surgery and that they are adding him on to schedule for tomorrow. Patient does not feel he is taking deep enough breaths, agreeable to use incentive spirometer. Review of Systems Review of Systems: All systems reviewed & are unremarkable except as noted in HPI and below Exam Const: General: no acute distress and uncomfortable Resp: Effort & Inspection: normal respiratory effort Auscultation: clear to auscultation bilaterally Other: Speaking in complete sentences. Cardio: Rate: regular rate Rhythm: regular rhythm GI: GI Palp: Yes Soft to palpation Auscultation: normal bowel sounds Skin: Other: RLE erythema improving, ulcer on dorsal foot between the first and second digit extending to the metatarsal region with scant purulence drainage and a soft overlying necrotic eschar. Chronic lymphedema with chronic venous stasis skin changes and dermatitis to the right lower leg. Neuro: Speech: normal speech Extrem: Other: Bilateral lower extremities with chronic lymphedema and venous stasis dermatitis. Erythema improving to right lower extremity. Psych: Mental Status: mental status grossly normal Affect: normal affect Objective Data Vital Signs Vital Signs: Vital Signs - 24 hr 08/23/24 14:00 08/23/24 20:44 08/23/24 21:35 Temperature 98.8 F Pulse Rate 79 80 78 Respiratory Rate 16 Blood Pressure 105/51 L Pulse Oximetry 94 96 Oxygen Delivery CPAP 08/23/24 21:59 08/24/24 02:25 08/24/24 06:00 Temperature 98.8 F 98.4 F Pulse Rate 72 77 Respiratory Rate 16 14 Blood Pressure 128/82 126/52 L Pulse Oximetry 98 98 Oxygen Delivery CPAP 08/24/24 09:20 Temperature Pulse Rate 81 Respiratory Rate Blood Pressure Pulse Oximetry Oxygen Delivery Intake/Output Intake/Output: Intake & Output 08/21/24 08/22/24 08/23/24 08/24/24 23:59 23:59 23:59 23:59 Intake Total 3060 3690 3260 1340 Output Total 2700 2000 3675 1300 Balance 360 1690 -415 40 Meds/Results Medications: Active Medications Generic Name Dose Route Start Last Admin Trade Name Freq PRN Reason Stop Dose Admin Acetaminophen 650 mg 08/20/24 16:16 08/23/24 10:50 Acetaminophen 325 Mg Tablet PO 650 mg Q4H PRN Administration Mild Pain (1-3) or Fever Hydrocodone Bitart/Acetaminophen 1 tab 08/20/24 16:16 Hydrocodone/Acetaminophen (*Crx) 5-325 Mg Tablet PO Q4H PRN Pain Rated 4-6 Allopurinol 100 mg 08/21/24 09:00 08/24/24 09:20 Allopurinol 100 Mg Tablet PO 100 mg DAILY ANGELA Administration Apixaban 5 mg 08/20/24 22:05 08/21/24 08:55 Apixaban 5 Mg Tablet PO 5 mg Q12HR ANGELA Administration Bumetanide 1 mg 08/23/24 14:00 08/24/24 09:43 Bumetanide 1 Mg Tablet PO 1 mg TID@0600,1000,1400 AGNELA Administration Calcitriol 0.25 mcg 08/21/24 09:00 08/24/24 09:43 Calcitriol 0.25 Mcg Capsule PO 0.25 mcg MoWeFr@0900 ANGELA Administration Docusate Sodium 100 mg 08/20/24 21:47 Docusate Sodium 100 Mg Capsule PO Q12H PRN constipation Enoxaparin Sodium 40 mg 08/22/24 10:30 08/24/24 09:38 Enoxaparin 40 Mg/0.4 Ml Syringe SUB-Q 40 mg DAILY ANGELA Administration Famotidine 20 mg 08/20/24 22:05 08/24/24 09:37 Famotidine 20 Mg Tablet PO 20 mg BID ANGELA Administration Fluticasone Propionate 1 spray 08/21/24 09:00 08/24/24 09:19 Fluticasone Propionate 0.05% Na Spr 16 Gm Btl (*Bkc) NASAL 1 spray DAILY ANGELA Administration Gabapentin 300 mg 08/20/24 22:05 08/24/24 09:37 Gabapentin 300 Mg Capsule PO 300 mg TID ANGELA Administration Meropenem 1 gm in 100 mls @ 200 mls/hr 08/20/24 19:00 08/24/24 06:39 IVPB Infused Q12H ANGELA Infusion Vancomycin HCl 1,500 mg in 500 mls @ 250 mls/hr 08/21/24 20:00 08/23/24 22:30 Vancomycin 1,500 Mg/Ns 500 Ml IVPB Infused Q24H ANGELA Infusion Levothyroxine Sodium 200 mcg 08/21/24 06:30 08/24/24 05:46 Levothyroxine Sodium 100 Mcg Tablet PO 200 mcg DAILY@0630 ANGELA Administration Loratadine 10 mg 08/22/24 10:05 08/24/24 09:37 Loratadine 10 Mg Tablet PO 10 mg DAILY ANGELA Administration Metolazone 5 mg 08/21/24 09:00 08/24/24 09:20 Metolazone 5 Mg Tablet PO 5 mg DAILY ANGELA Administration Metoprolol Tartrate 50 mg 08/20/24 22:05 08/24/24 09:20 Metoprolol Tartrate 50 Mg Tab PO 50 mg Q12HR ANGELA Administration Minoxidil 2.5 mg 08/21/24 09:00 08/24/24 09:37 Minoxidil 2.5 Mg Tablet PO 2.5 mg DAILY ANGELA Administration Morphine Sulfate 2 mg 08/20/24 16:16 08/22/24 13:04 Morphine Sulfate (*Crx) 2 Mg/Ml Inj IV PUSH 2 mg Q2H PRN Administration Pain Rated 7-10 Multi-Ingred Cream/Lotion/Oil/Oint 1 applic 08/21/24 09:00 08/24/24 09:38 Eucerin Cream 454 Gm Jar TOPICAL 1 applic BID ANGELA Administration Polyethylene Glycol 17 gm 08/22/24 10:05 08/24/24 09:20 Polyethylene Glycol 3350 17 Gm Powd.Pack PO 17 gm DAILY ANGELA Administration Potassium Chloride 10 meq 08/20/24 22:04 Potassium Chloride 10 Meq Er Tablet PO DAILY PRN leg cramping Promethazine HCl 12.5 mg 08/20/24 16:16 Promethazine Hcl 25 Mg/Ml Ampul IV PUSH Q6H PRN Nausea Spironolactone 25 mg 08/21/24 09:00 08/24/24 09:37 Spironolactone 25 Mg Tablet PO 25 mg DAILY ANGELA Administration Tamsulosin HCl 0.4 mg 08/21/24 09:00 08/24/24 09:37 Tamsulosin Hcl 0.4 Mg Capsule PO 0.4 mg QAM ANGELA Administration Radiology Results: ITS Impressions Ankle X-Ray 08/20/24 12:55 IMPRESSION: Lucency over the right lateral malleolus. Follow-up advised. 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 Tibia/Fibula X-Ray 08/20/24 13:03 IMPRESSION: No definite acute osseous abnormality right leg. Lucencies in the area of the medial and lateral malleoli which may be summation shadows. Clinical correlation and follow-up advised.. Foot X-Ray 08/20/24 13:07 Impression: Extensive soft tissue swelling. No definite evidence for osteomyelitis. Labs Labs: Laboratory Results - last 24 hr 08/24/24 08/24/24 05:19 05:20 WBC 7.8 RBC 3.31 L Hgb 8.6 L Hct 29.6 L MCV 89.4 MCH 26.0 MCHC 29.1 L RDW 16.1 H Plt Count 281 MPV 9.8 Immature Gran % (Auto) 0.4 Neut % (Auto) 77.4 H Lymph % (Auto) 6.8 L [place] % (Auto) 9.7 H Eos % (Auto) 4.7 H Baso % (Auto) 1.0 Lymph # (Auto) 0.53 L [place] # (Auto) 0.8 H Eos # (Auto) 0.4 H Baso # (Auto) 0.1 Abs Immat Gran (auto) 0.03 Absolute Neuts (auto) 6.1 Absolute Nucleated RBC 0.000 Band Neutrophils % Not Reportable Nucleated RBC % 0.0 Platelet Estimate Adequate Hypochromasia 1+ Anisocytosis 1+ Ovalocytes 1+ Schistocytes None seen Sodium 134 L Potassium 3.7 Chloride 97 L Carbon Dioxide 33 H Anion Gap 4 BUN 55 H Creatinine 1.95 H Estim Creat Clear Calc 47 Estimated GFR 34 L Glucose 89 Calcium 8.0 L Magnesium 2.0 Total Bilirubin 0.3 AST 14 L ALT < 6 L Alkaline Phosphatase 35 L Total Protein 5.0 L Albumin 2.7 L Quality VTE Prophylaxis VTE prophylaxis: pharmacologic ordered
[2024-08-24 19:31] LABS: Vancomycin Trough 22.2 ug/mL (10.0-20.0)
[2024-08-25] VITALS (17 sets, daily range): BP systolic 103–145; BP diastolic 54–79; PULSE 64–87; RESP 16–20; TEMP 35.6–36.9; O2SAT 95–100
[2024-08-25] MEDS: MORPHINE SULFATE (*CRX) 2 MG/ML INJ IV PUSH (00:45)
[2024-08-25] MEDS: VANCOMYCIN 1,250 MG/NS 250 ML 1,250 MG/250 ML BAG 166.67 MG IVPB (00:46)
[2024-08-25 05:53] LABS: Basophils Absolute Auto 0.1 K/mm3 (0.0-0.1); Basophils Percent Auto 0.8 % (0.2-1.2); Eosinophils Absolute Auto 0.4 K/mm3 (0-0.3); Hemoglobin 8.8 g/dL (14.0-18.0); Immature Granulocyte Absolute 0.03 K/mm3 (0.00-0.031); Immature Granulocyte Percent A 0.4 % (0-0.5); Lymphocytes Absolute Auto 0.55 K/mm3 (0.9-3.2); Mean Corpuscular HGB Conc 29.3 g/dl (32-36); Mean Corpuscular Volume 88.8 fl (80-100); Mean Platelet Volume 9.2 fl (7.4-10.4); Monocytes Absolute Auto 0.7 K/mm3 (0.1-0.6); Monocytes Percent Auto 9.3 % (2.6-8.5); Neutrophils Absolute Auto 6.1 K/mm3 (1.3-6.7); Neutrophils Percent Auto 77.5 % (45.5-73.1); Platelet Count Result 267 k/mm3 (150-375); Red Blood Count 3.38 M/mm3 (4.6-6.20); White Blood Count 7.9 K/mm3 (4.5-10.0)
[2024-08-25] MEDS: MEROPENEM 1 GM/NS 100 ML 1 GM/100 ML BAG IVPB ×2 (06:02→17:41)
[2024-08-25 06:06] LABS: Alanine Aminotransferase 8 U/L (6-50); Albumin Level 2.8 g/dL (3.5-5.1); Alkaline Phosphatase 38 U/L (38-126); Anion Gap 5 mmol/L (4-12); Aspartate Amino Transferase 18 U/L (17-59); Bilirubin,Total 0.4 mg/dL (0.2-1.3); Blood Urea Nitrogen 53 mg/dL (9-20); Calcium 8.2 mg/dL (8.4-10.2); Carbon Dioxide 33 mmol/L (22-30); Chloride 94 mmol/L (98-107); Estimated CRCL calculation 50 ml/min; Estimated Glomerular Filt Rate 36; Glucose 85 mg/dL (65-110); Magnesium 1.9 mg/dL (1.6-2.3); Potassium 3.5 mmol/L (3.4-5.0); Sodium 132 mmol/L (137-145)
[2024-08-25 06:30] LABS: Hypochromasia 1+; Platelet Estimate Adequate (Adequate); Schistocytes None Seen
[2024-08-25] MEDS: LACTATED RINGERS 1,000 ML 100 ML IV CONT ×2 (06:31→16:40)
--- NOTE | 2024-08-25 10:58 | PM.IMPN ---
Progress Note: A&P Assessment and Plan (1) Venous stasis ulcer of right foot: Code(s): I83.015 - Varicose veins of right lower extremity with ulcer other part of foot Status: Acute Assessment and Plan: - ankle XR: Lucency over the right lateral malleolus. Follow-up advised. 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 - tib fib XR: No definite acute osseous abnormality right leg. Lucencies in the area of the medial and lateral malleoli which may be summation shadows. Clinical correlation and follow-up advised.. - foot XR: Extensive soft tissue swelling. No definite evidence for osteomyelitis. - started on Levaquin and Flagyl on 08/20/2024. Reviewed micro and patient has history of Pseudomonas and Staph with multiple resistances in March of 2024. Previously placed on meropenem after case was reviewed with ID pharmacist during the patient's most recent admission in May of 2024. Will place patient back on meropenem as well as vancomycin and obtain wound culture. - wound RN consulted. Recommendations: daily cleanse right lower leg and foot by the 5th toe, apply antifungal powder to open weeping maceration areas. place ABD pads and roll gauze cover if patient allows, if not place nito pads under and over foot and leg to control exudate and change daily and PRN if heavily soiled. -Surgery consulted, plan for a below-knee amputation of the right leg, added to surgery schedule for tomorrow. HOLD eliquis. DVT prophylaxis Lovenox 40 mg subq daily. -Blood cultures no growth to date. -Right BKA scheduled today. (2) Peripheral vascular disease: Code(s): I73.9 - Peripheral vascular disease, unspecified Status: Acute Assessment and Plan: - follows with Chris DE LEON with vascular surgery. Reportedly told at most recent visit on XX that there were no further interventions to increased blood flow to his affected extremity as the disease is below the knee. (3) CHF (congestive heart failure): Qualifiers: Heart failure chronicity: chronic Heart failure type: diastolic Qualified Code(s): I50.32 - Chronic diastolic (congestive) heart failure Code(s): I50.9 - Heart failure, unspecified Status: Chronic Assessment and Plan: - echo, previous: Estimated EF 65-70%, grade 1 diastolic dysfunction. Technically difficult echo. See report for details. - continue home medications: Bumex (adjusting administration times to help patient get improved sleep), metolazone, spironolactone. Hold Diamox, contraindicated in CKD stage 4. - monitor I&Os daily weights (4) Atrial fibrillation: Qualifiers: Atrial fibrillation type: longstanding persistent Qualified Code(s): I48.11 - Longstanding persistent atrial fibrillation Code(s): I48.91 - Unspecified atrial fibrillation Status: Chronic Assessment and Plan: - continue home medications: Eliquis and Metoprolol. - Eliquis is on hold for surgery later in week, right BKA. - Lovenox 40 mg subq daily, hold dose 08/25 AM. (5) Chronic anemia: Code(s): D64.9 - Anemia, unspecified Status: Acute Assessment and Plan: - Hgb 8.8, previously 8.4 on 05/19/2024. At baseline. - transfuse if <7. - monitor (6) CKD (chronic kidney disease) stage 3, GFR 30-59 ml/min: Qualifiers: Chronic kidney disease stage 3 subtype: stage 3b (GFR 30-44) Qualified Code(s): N18.32 - Chronic kidney disease, stage 3b Code(s): N18.3 - Chronic kidney disease, stage 3 (moderate) Status: Acute Assessment and Plan: - creatinine 1.82 and GFR 36, previously 2.23 and GFR 29 on 05/19/2024 - trend renal function - trend electrolytes, correct as needed (7) Essential (primary) hypertension: Code(s): I10 - Essential (primary) hypertension Status: Chronic Assessment and Plan: - chronic, currently 127/56. - continue home medications: Metoprolol - monitor (8) AMELIA (obstructive sleep apnea): Code(s): G47.33 - Obstructive sleep apnea (adult) (pediatric) Status: Acute Assessment and Plan: - continue home CPAP Plan Diet: Heart healthy GI Prophylaxis: Not currently indicated DVT Prophylaxis: Eliquis IV fluids: None Lines/Tubes: Peripheral IV Code Status: Full code Subjective Date/time seen: 08/25/24 10:58 Interval history: Patient reports that he is ready to get his surgery over with. Patient reports that he had pain in right leg that woke him up out of sleep last night and he needed IV morphine. Pain in right leg is currently a 2, constant, and aching. Patient denies chest pain, palpitations, headache, dizziness, nausea, or vomiting. Review of Systems Review of Systems: All systems reviewed & are unremarkable except as noted in HPI and below Exam Const: General: no acute distress and uncomfortable Resp: Effort & Inspection: normal respiratory effort Auscultation: clear to auscultation bilaterally Other: Speaking in complete sentences. Cardio: Rate: regular rate Rhythm: regular rhythm GI: GI Palp: Yes Soft to palpation Auscultation: normal bowel sounds Skin: Other: RLE erythema improving, ulcer on dorsal foot between the first and second digit extending to the metatarsal region with scant purulence drainage and a soft overlying necrotic eschar. Chronic lymphedema with chronic venous stasis skin changes and dermatitis to the right lower leg. Neuro: Speech: normal speech Extrem: Other: Bilateral lower extremities with chronic lymphedema and venous stasis dermatitis. Erythema improving to right lower extremity. Psych: Mental Status: mental status grossly normal Affect: normal affect Objective Data Vital Signs Vital Signs: Vital Signs - 24 hr 08/24/24 14:00 08/24/24 19:49 08/24/24 21:01 Temperature 98.8 F Pulse Rate 82 81 Respiratory Rate 16 Blood Pressure 122/59 L Pulse Oximetry 95 98 Oxygen Delivery Room Air Fraction of Inspired Oxygen 21 08/24/24 21:25 08/24/24 22:00 08/25/24 01:30 Temperature 97.0 F L Pulse Rate 69 Respiratory Rate 16 Blood Pressure 132/57 L Pulse Oximetry 94 Oxygen Delivery CPAP CPAP Fraction of Inspired Oxygen 08/25/24 06:00 Temperature 96.1 F L Pulse Rate 73 Respiratory Rate 20 Blood Pressure 140/58 L Pulse Oximetry 99 Oxygen Delivery Fraction of Inspired Oxygen Intake/Output Intake/Output: Intake & Output 08/22/24 08/23/24 08/24/24 08/25/24 23:59 23:59 23:59 23:59 Intake Total 3690 3260 2570 Output Total 1999 5897 4409 1800 Balance 4174 -111 -5733 -3075 Meds/Results Medications: Active Medications Generic Name Dose Route Start Last Admin Trade Name Freq PRN Reason Stop Dose Admin Acetaminophen 650 mg 08/20/24 16:16 08/23/24 10:50 Acetaminophen 325 Mg Tablet PO 650 mg Q4H PRN Administration Mild Pain (1-3) or Fever Hydrocodone Bitart/Acetaminophen 1 tab 08/20/24 16:16 Hydrocodone/Acetaminophen (*Crx) 5-325 Mg Tablet PO Q4H PRN Pain Rated 4-6 Allopurinol 100 mg 08/21/24 09:00 08/24/24 09:20 Allopurinol 100 Mg Tablet PO 100 mg DAILY ANGELA Administration Apixaban 5 mg 08/20/24 22:05 08/21/24 08:55 Apixaban 5 Mg Tablet PO 5 mg Q12HR ANGELA Administration Bumetanide 1 mg 08/23/24 14:00 08/25/24 08:13 Bumetanide 1 Mg Tablet PO Not Given TID@0600,1000,1400 ANGELA Calcitriol 0.25 mcg 08/21/24 09:00 08/24/24 09:43 Calcitriol 0.25 Mcg Capsule PO 0.25 mcg MoWeFr@0900 ANGELA Administration Docusate Sodium 100 mg 08/20/24 21:47 Docusate Sodium 100 Mg Capsule PO Q12H PRN constipation Enoxaparin Sodium 40 mg 08/22/24 10:30 08/24/24 09:38 Enoxaparin 40 Mg/0.4 Ml Syringe SUB-Q 40 mg DAILY ANGELA Administration Famotidine 20 mg 08/20/24 22:05 08/24/24 18:14 Famotidine 20 Mg Tablet PO 20 mg BID ANGELA Administration Fluticasone Propionate 1 spray 08/21/24 09:00 08/24/24 09:19 Fluticasone Propionate 0.05% Na Spr 16 Gm Btl (*Bkc) NASAL 1 spray DAILY ANGELA Administration Gabapentin 300 mg 08/20/24 22:05 08/24/24 18:14 Gabapentin 300 Mg Capsule PO 300 mg TID ANGELA Administration Meropenem 1 gm in 100 mls @ 200 mls/hr 08/20/24 19:00 08/25/24 06:02 IVPB 200 mls/hr Q12H ANGELA Administration Lactated Ringer's 1,000 mls @ 100 mls/hr 08/25/24 00:00 08/25/24 06:31 Lr - Lactated Ringers Iv IV CONT 100 mls/hr .Q10H ANGELA Administration Vancomycin HCl 1,250 mg in 250 mls @ 166.667 mls/hr 08/25/24 01:00 08/25/24 00:46 Vancomycin 1,250 Mg/Ns 250 Ml IVPB 166.67 mls/hr Q24H ANGELA Administration Levothyroxine Sodium 200 mcg 08/21/24 06:30 08/25/24 08:14 Levothyroxine Sodium 100 Mcg Tablet PO Not Given DAILY@0630 ANGELA Loratadine 10 mg 08/22/24 10:05 08/24/24 09:37 Loratadine 10 Mg Tablet PO 10 mg DAILY ANGELA Administration Metolazone 5 mg 08/21/24 09:00 08/24/24 09:20 Metolazone 5 Mg Tablet PO 5 mg DAILY ANGELA Administration Metoprolol Tartrate 50 mg 08/20/24 22:05 08/24/24 19:49 Metoprolol Tartrate 50 Mg Tab PO 50 mg Q12HR ANGELA Administration Minoxidil 2.5 mg 08/21/24 09:00 08/24/24 09:37 Minoxidil 2.5 Mg Tablet PO 2.5 mg DAILY ANGELA Administration Morphine Sulfate 2 mg 08/20/24 16:16 08/25/24 00:45 Morphine Sulfate (*Crx) 2 Mg/Ml Inj IV PUSH 2 mg Q2H PRN Administration Pain Rated 7-10 Multi-Ingred Cream/Lotion/Oil/Oint 1 applic 08/21/24 09:00 08/24/24 18:15 Eucerin Cream 454 Gm Jar TOPICAL 1 applic BID ANGELA Administration Polyethylene Glycol 17 gm 08/22/24 10:05 08/24/24 09:20 Polyethylene Glycol 3350 17 Gm Powd.Pack PO 17 gm DAILY ANGELA Administration Potassium Chloride 10 meq 08/20/24 22:04 Potassium Chloride 10 Meq Er Tablet PO DAILY PRN leg cramping Promethazine HCl 12.5 mg 08/20/24 16:16 Promethazine Hcl 25 Mg/Ml Ampul IV PUSH Q6H PRN Nausea Spironolactone 25 mg 08/21/24 09:00 08/24/24 09:37 Spironolactone 25 Mg Tablet PO 25 mg DAILY ANGELA Administration Tamsulosin HCl 0.4 mg 08/21/24 09:00 08/24/24 09:37 Tamsulosin Hcl 0.4 Mg Capsule PO 0.4 mg QAM ANGELA Administration Radiology Results: ITS Impressions Ankle X-Ray 08/20/24 12:55 IMPRESSION: Lucency over the right lateral malleolus. Follow-up advised. 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 Tibia/Fibula X-Ray 08/20/24 13:03 IMPRESSION: No definite acute osseous abnormality right leg. Lucencies in the area of the medial and lateral malleoli which may be summation shadows. Clinical correlation and follow-up advised.. Foot X-Ray 08/20/24 13:07 Impression: Extensive soft tissue swelling. No definite evidence for osteomyelitis. Labs Labs: Laboratory Results - last 24 hr 08/24/24 08/25/24 08/25/24 19:10 05:44 09:02 WBC 7.9 RBC 3.38 L Hgb 8.8 L Hct 30.0 L MCV 88.8 MCH 26.0 MCHC 29.3 L RDW 16.0 H Plt Count 267 MPV 9.2 Immature Gran % (Auto) 0.4 Neut % (Auto) 77.5 H Lymph % (Auto) 7.0 L [place] % (Auto) 9.3 H Eos % (Auto) 5.0 H Baso % (Auto) 0.8 Lymph # (Auto) 0.55 L [place] # (Auto) 0.7 H Eos # (Auto) 0.4 H Baso # (Auto) 0.1 Abs Immat Gran (auto) 0.03 Absolute Neuts (auto) 6.1 Absolute Nucleated RBC 0.000 Band Neutrophils % Not Reportable Nucleated RBC % 0.0 Platelet Estimate Adequate Hypochromasia 1+ Schistocytes None seen Sodium 132 L Potassium 3.5 Chloride 94 L Carbon Dioxide 33 H Anion Gap 5 BUN 53 H Creatinine 1.82 H Estim Creat Clear Calc 50 Estimated GFR 36 L Glucose 85 Calcium 8.2 L Magnesium 1.9 Total Bilirubin 0.4 AST 18 ALT 8 Alkaline Phosphatase 38 Total Protein 5.0 L Albumin 2.8 L Vancomycin Trough 22.2 H Blood Type A Positive Antibody Screen Negative Quality VTE Prophylaxis VTE prophylaxis: pharmacologic ordered
--- NOTE | 2024-08-25 11:16 | P.PNGS_ITS ---
Progress Note: A&P Assessment and Plan (1) Cellulitis of right foot: Code(s): L03.115 - Cellulitis of right lower limb Status: Acute Assessment and Plan: * Continue with current wound care. Maintain NPO status. Patient scheduled for right below the knee amputation today at 1230. (2) Venous stasis ulcer of right foot: Code(s): I83.015 - Varicose veins of right lower extremity with ulcer other part of foot Status: Acute (3) Lymphedema of both lower extremities: Code(s): I89.0 - Lymphedema, not elsewhere classified Status: Acute (4) AMELIA (obstructive sleep apnea): Code(s): G47.33 - Obstructive sleep apnea (adult) (pediatric) Status: Acute (5) Anemia: Qualifiers: Anemia type: due to chronic kidney disease Chronic kidney disease stage: stage 3 (moderate) Chronic kidney disease stage 3 subtype: unspecified whether 3a or 3b Qualified Code(s): N18.30 - Chronic kidney disease, stage 3 unspecified; D63.1 - Anemia in chronic kidney disease Code(s): D64.9 - Anemia, unspecified Status: Acute (6) CKD (chronic kidney disease) stage 3, GFR 30-59 ml/min: Qualifiers: Chronic kidney disease stage 3 subtype: stage 3b (GFR 30-44) Qualified Code(s): N18.32 - Chronic kidney disease, stage 3b Code(s): N18.3 - Chronic kidney disease, stage 3 (moderate) Status: Acute (7) Peripheral vascular disease: Code(s): I73.9 - Peripheral vascular disease, unspecified Status: Acute (8) Atrial fibrillation: Qualifiers: Atrial fibrillation type: longstanding persistent Qualified Code(s): I48.11 - Longstanding persistent atrial fibrillation Code(s): I48.91 - Unspecified atrial fibrillation Status: Chronic Plan I have discussed the patient's case and plan of care with Dr. Malone. Subjective Subjective Date/Time Seen: 08/25/24 11:16 Interval history: No acute events overnight. Vital signs stable. Normal WBC count. Patient expresses wishes to proceed with right below the knee amputation. Exam Extrem: General: normal to inspection and capillary refill normal Other: Right foot edema and cellulitis with an ulcer on dorsal foot between the first and second digit extending to the metatarsal region with scant purulence drainage and a soft overlying necrotic eschar. Chronic lymphedema with chronic venous stasis skin changes and dermatitis to the right lower leg. Minimal sensation to right foot. Objective Data Vital Signs Vital Signs: Vital Signs - 24 hr 08/24/24 14:00 08/24/24 19:49 08/24/24 21:01 Temperature 98.8 F Pulse Rate 82 81 Respiratory Rate 16 Blood Pressure 122/59 L Pulse Oximetry 95 98 Oxygen Delivery Room Air Fraction of Inspired Oxygen 21 08/24/24 21:25 08/24/24 22:00 08/25/24 01:30 Temperature 97.0 F L Pulse Rate 69 Respiratory Rate 16 Blood Pressure 132/57 L Pulse Oximetry 94 Oxygen Delivery CPAP CPAP Fraction of Inspired Oxygen 08/25/24 06:00 Temperature 96.1 F L Pulse Rate 73 Respiratory Rate 20 Blood Pressure 140/58 L Pulse Oximetry 99 Oxygen Delivery Fraction of Inspired Oxygen Intake/Output Intake/Output: Intake & Output 08/22/24 08/23/24 08/24/24 08/25/24 23:59 23:59 23:59 23:59 Intake Total 3690 3260 2570 Output Total 1999 3675 4400 2100 Balance 9321 -685 -1845 -4746 Meds/Results Medications: Active Medications Generic Name Dose Route Start Last Admin Trade Name Freq PRN Reason Stop Dose Admin Acetaminophen 650 mg 08/20/24 16:16 08/23/24 10:50 Acetaminophen 325 Mg Tablet PO 650 mg Q4H PRN Administration Mild Pain (1-3) or Fever Hydrocodone Bitart/Acetaminophen 1 tab 08/20/24 16:16 Hydrocodone/Acetaminophen (*Crx) 5-325 Mg Tablet PO Q4H PRN Pain Rated 4-6 Allopurinol 100 mg 08/21/24 09:00 08/24/24 09:20 Allopurinol 100 Mg Tablet PO 100 mg DAILY ANGELA Administration Apixaban 5 mg 08/20/24 22:05 08/21/24 08:55 Apixaban 5 Mg Tablet PO 5 mg Q12HR ANGELA Administration Bumetanide 1 mg 08/23/24 14:00 08/25/24 08:13 Bumetanide 1 Mg Tablet PO Not Given TID@0600,1000,1400 [facility] Calcitriol 0.25 mcg 08/21/24 09:00 08/24/24 09:43 Calcitriol 0.25 Mcg Capsule PO 0.25 mcg MoWeFr@0900 ANGELA Administration Docusate Sodium 100 mg 08/20/24 21:47 Docusate Sodium 100 Mg Capsule PO Q12H PRN constipation Enoxaparin Sodium 40 mg 08/22/24 10:30 08/24/24 09:38 Enoxaparin 40 Mg/0.4 Ml Syringe SUB-Q 40 mg DAILY ANGELA Administration Famotidine 20 mg 08/20/24 22:05 08/24/24 18:14 Famotidine 20 Mg Tablet PO 20 mg BID ANGELA Administration Fluticasone Propionate 1 spray 08/21/24 09:00 08/24/24 09:19 Fluticasone Propionate 0.05% Na Spr 16 Gm Btl (*Bkc) NASAL 1 spray DAILY ANGELA Administration Gabapentin 300 mg 08/20/24 22:05 08/24/24 18:14 Gabapentin 300 Mg Capsule PO 300 mg TID ANGELA Administration Meropenem 1 gm in 100 mls @ 200 mls/hr 08/20/24 19:00 08/25/24 06:02 IVPB 200 mls/hr Q12H ANGELA Administration Lactated Ringer's 1,000 mls @ 100 mls/hr 08/25/24 00:00 08/25/24 06:31 Lr - Lactated Ringers Iv IV CONT 100 mls/hr .Q10H ANGELA Administration Vancomycin HCl 1,250 mg in 250 mls @ 166.667 mls/hr 08/25/24 01:00 08/25/24 00:46 Vancomycin 1,250 Mg/Ns 250 Ml IVPB 166.67 mls/hr Q24H ANGELA Administration Levothyroxine Sodium 200 mcg 08/21/24 06:30 08/25/24 08:14 Levothyroxine Sodium 100 Mcg Tablet PO Not Given DAILY@0630 ANGELA Loratadine 10 mg 08/22/24 10:05 08/24/24 09:37 Loratadine 10 Mg Tablet PO 10 mg DAILY ANGELA Administration Metolazone 5 mg 08/21/24 09:00 08/24/24 09:20 Metolazone 5 Mg Tablet PO 5 mg DAILY ANGELA Administration Metoprolol Tartrate 50 mg 08/20/24 22:05 08/24/24 19:49 Metoprolol Tartrate 50 Mg Tab PO 50 mg Q12HR ANGELA Administration Minoxidil 2.5 mg 08/21/24 09:00 08/24/24 09:37 Minoxidil 2.5 Mg Tablet PO 2.5 mg DAILY ANGELA Administration Morphine Sulfate 2 mg 08/20/24 16:16 08/25/24 00:45 Morphine Sulfate (*Crx) 2 Mg/Ml Inj IV PUSH 2 mg Q2H PRN Administration Pain Rated 7-10 Multi-Ingred Cream/Lotion/Oil/Oint 1 applic 08/21/24 09:00 08/24/24 18:15 Eucerin Cream 454 Gm Jar TOPICAL 1 applic BID ANGELA Administration Polyethylene Glycol 17 gm 08/22/24 10:05 08/24/24 09:20 Polyethylene Glycol 3350 17 Gm Powd.Pack PO 17 gm DAILY ANGELA Administration Potassium Chloride 10 meq 08/20/24 22:04 Potassium Chloride 10 Meq Er Tablet PO DAILY PRN leg cramping Promethazine HCl 12.5 mg 08/20/24 16:16 Promethazine Hcl 25 Mg/Ml Ampul IV PUSH Q6H PRN Nausea Spironolactone 25 mg 08/21/24 09:00 08/24/24 09:37 Spironolactone 25 Mg Tablet PO 25 mg DAILY ANGELA Administration Tamsulosin HCl 0.4 mg 08/21/24 09:00 08/24/24 09:37 Tamsulosin Hcl 0.4 Mg Capsule PO 0.4 mg QAM ANGELA Administration Radiology Results: ITS Impressions Ankle X-Ray 08/20/24 12:55 IMPRESSION: Lucency over the right lateral malleolus. Follow-up advised. 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 Tibia/Fibula X-Ray 08/20/24 13:03 IMPRESSION: No definite acute osseous abnormality right leg. Lucencies in the area of the medial and lateral malleoli which may be summation shadows. Clinical correlation and follow-up advised.. Foot X-Ray 08/20/24 13:07 Impression: Extensive soft tissue swelling. No definite evidence for osteomyelitis. Labs Labs: Laboratory Results - last 24 hr 08/24/24 08/25/24 08/25/24 19:10 05:44 09:02 WBC 7.9 RBC 3.38 L Hgb 8.8 L Hct 30.0 L MCV 88.8 MCH 26.0 MCHC 29.3 L RDW 16.0 H Plt Count 267 MPV 9.2 Immature Gran % (Auto) 0.4 Neut % (Auto) 77.5 H Lymph % (Auto) 7.0 L [place] % (Auto) 9.3 H Eos % (Auto) 5.0 H Baso % (Auto) 0.8 Lymph # (Auto) 0.55 L [place] # (Auto) 0.7 H Eos # (Auto) 0.4 H Baso # (Auto) 0.1 Abs Immat Gran (auto) 0.03 Absolute Neuts (auto) 6.1 Absolute Nucleated RBC 0.000 Band Neutrophils % Not Reportable Nucleated RBC % 0.0 Platelet Estimate Adequate Hypochromasia 1+ Schistocytes None seen Sodium 132 L Potassium 3.5 Chloride 94 L Carbon Dioxide 33 H Anion Gap 5 BUN 53 H Creatinine 1.82 H Estim Creat Clear Calc 50 Estimated GFR 36 L Glucose 85 Calcium 8.2 L Magnesium 1.9 Total Bilirubin 0.4 AST 18 ALT 8 Alkaline Phosphatase 38 Total Protein 5.0 L Albumin 2.8 L Vancomycin Trough 22.2 H Blood Type A Positive Antibody Screen Negative
[2024-08-25] MEDS: LACTATED RINGERS 1,000 ML 30 ML IV CONT ×2 (12:15→15:20)
--- NOTE | 2024-08-25 12:21 | P.PNAN_ITS ---
Anes - Initial Pre Proc Eval Procedure: Operation Date: 08/25/24 12:30 Proposed Procedures p Right Below Knee Amputation - Adarsh Malone DO Date/Time: 08/25/24 12:21 Surgeon: Jose Angel Shields MD Pre Op Diagnosis: INFEXTED FOOR ULCER Patient Data Age: 74 Gender: M Height: 1.85 m Weight: 156.2 kg Last Vital Signs Temp 96.1 F L 08/25/24 06:00 Pulse 73 08/25/24 06:00 Resp 20 08/25/24 06:00 BP 140/58 L 08/25/24 06:00 Pulse Ox 99 08/25/24 06:00 O2 Del Method CPAP 08/25/24 01:30 FiO2 21 08/24/24 21:01 Allergies Allergy/AdvReac Type Severity Reaction Status Date / Time Sulfa (Sulfonamide Allergy Mild Rash Verified 08/20/24 11:38 Antibiotics) Penicillins Allergy Unknown SWELLING Verified 08/20/24 11:38 codeine AdvReac Mild N/V Verified 08/20/24 11:38 hydrocodone AdvReac Mild N/V Verified 08/20/24 11:38 oxycodone (From OxyContin) AdvReac Mild Nausea Verified 08/20/24 11:38 tramadol AdvReac Mild Nausea Verified 08/20/24 11:38 Home Medications ?Medication ?Instructions ?Recorded ?Confirmed ?Type loratadine 10 mg tablet (Claritin) 10 mg PO DAILY PRN allergy symptoms 07/12/20 08/20/24 History polyethylene glycol 3350 17 17 g PO DAILY PRN Constipation 06/02/21 08/20/24 History gram/dose oral powder (Miralax) apixaban 5 mg tablet (Eliquis) 5 mg PO Q12HR #180 tabs 01/19/22 08/20/24 Rx metoprolol tartrate 50 mg tablet 50 mg PO Q12HR #180 tabs 01/19/22 08/20/24 Rx acetazolamide 250 mg tablet 250 mg PO DAILY 11/19/22 08/20/24 History fluticasone propionate 50 1 spray intranasal DAILY Congestion 11/19/22 08/20/24 History mcg/actuation nasal spray,suspension (Flonase Allergy Relief) lanolin alcohols-mineral 1 applic topical BID #113 grams 03/25/23 08/20/24 Rx oil-w.petrolatum-ceresin topical cream (Minerin Creme topical) spironolactone 25 mg tablet 25 mg PO DAILY #30 tabs 04/06/23 08/20/24 Rx calcitriol 0.25 mcg capsule 0.25 mcg PO 3XW #36 caps 10/30/23 08/20/24 Rx acetaminophen 325 mg tablet 500 mg PO Q4H PRN Mild Pain (1-3) 01/15/24 08/20/24 History Or Fever docusate sodium 100 mg capsule 100 mg PO Q12H PRN constipation 05/13/24 08/20/24 History gabapentin 300 mg capsule 300 mg PO TID #270 caps 05/14/24 08/20/24 Rx bumetanide 1 mg tablet See Rx Instructions .Route 06/29/24 08/20/24 Rx .COMPLEX #270 tabs allopurinol 100 mg tablet 100 mg PO DAILY #10 tabs 08/04/24 08/20/24 Rx allopurinol 100 mg tablet 100 mg PO DAILY@0800 #90 tabs 08/04/24 08/20/24 Rx famotidine 20 mg tablet 20 mg PO BID #180 tabs 08/04/24 08/20/24 Rx levothyroxine 200 mcg tablet 200 mcg PO DAILY #90 tabs 08/04/24 08/20/24 Rx metolazone 5 mg tablet 5 mg PO DAILY 08/04/24 08/20/24 History minoxidil 2.5 mg tablet 2.5 mg PO DAILY 08/04/24 08/20/24 History potassium chloride 10 mEq 10 meq PO DAILY PRN leg cramping 08/04/24 08/20/24 History capsule,extended release tamsulosin 0.4 mg capsule 0.4 mg PO QAM #90 caps 08/04/24 08/20/24 Rx Laboratory Tests 08/24/24 08/25/24 08/25/24 19:10 05:44 09:02 WBC 7.9 K/mm3 (4.5-10.0) RBC 3.38 L M/mm3 (4.6-6.20) Hgb 8.8 L g/dL (14.0-18.0) Hct 30.0 L % (42.0-52.0) MCV 88.8 fl (80-100) MCH 26.0 pg (26-34) MCHC 29.3 L g/dl (32-36) RDW 16.0 H % (11.5-14.5) Plt Count 267 k/mm3 (150-375) MPV 9.2 fl (7.4-10.4) Immature Gran % (Auto) 0.4 % (0-0.5) Neut % (Auto) 77.5 H % (45.5-73.1) Lymph % (Auto) 7.0 L % (18.3-44.2) [place] % (Auto) 9.3 H % (2.6-8.5) Eos % (Auto) 5.0 H % (0-4.4) Baso % (Auto) 0.8 % (0.2-1.2) Lymph # (Auto) 0.55 L K/mm3 (0.9-3.2) [place] # (Auto) 0.7 H K/mm3 (0.1-0.6) Eos # (Auto) 0.4 H K/mm3 (0-0.3) Baso # (Auto) 0.1 K/mm3 (0.0-0.1) Abs Immat Gran (auto) 0.03 K/mm3 (0.00-0.031) Absolute Neuts (auto) 6.1 K/mm3 (1.3-6.7) Absolute Nucleated RBC 0.000 K/mm3 (0.0-0.012) Band Neutrophils % Not Reportable Nucleated RBC % 0.0 % (0.0-0.2) Platelet Estimate Adequate (Adequate) Hypochromasia 1+ Schistocytes None seen Sodium 132 L mmol/L (137-145) Potassium 3.5 mmol/L (3.4-5.0) Chloride 94 L mmol/L (98-107) Carbon Dioxide 33 H mmol/L (22-30) Anion Gap 5 mmol/L (4-12) BUN 53 H mg/dL (9-20) Creatinine 1.82 H mg/dL (0.7-1.3) Estim Creat Clear Calc 50 ml/min Estimated GFR 36 L (59 - ) Glucose 85 mg/dL (65-110) Calcium 8.2 L mg/dL (8.4-10.2) Magnesium 1.9 mg/dL (1.6-2.3) Total Bilirubin 0.4 mg/dL (0.2-1.3) AST 18 U/L (17-59) ALT 8 U/L (6-50) Alkaline Phosphatase 38 U/L (38-126) Total Protein 5.0 L g/dL (6.3-8.2) Albumin 2.8 L g/dL (3.5-5.1) Vancomycin Trough 22.2 H ug/mL (10.0-20.0) Blood Type A Positive Antibody Screen Negative Patient hx anesthesia problems: none Family hx anesthesia problems: none Results Review: All pre-operative results and documents have been reviewed as part of the pre- operative evaluation. [facility] Past Medical History Medical History Self-care deficit Peripheral vascular disease Morbid obesity with body mass index (BMI) of 40.0 or higher Neuropathic pain Gout Sepsis Chronic acquired lymphedema Chronic anemia Obstructive sleep apnea Atrial fibrillation Lymphedema of both lower extremities Environmental allergies Ocular rosacea Rosacea Chronic low back pain Chronic venous insufficiency GERD without esophagitis Chronic congestive heart failure Echocardiogram in May 2021 was technically difficult and showed normal LV systolic function with an EF of 60 to 65%, severely enlarged RV chamber with moderate to severely reduced RV systolic function, severe biatrial enlargement, and moderate pulmonary hypertension. Dyslipidemia Essential (primary) hypertension Peripheral polyneuropathy Hypothyroidism Surgical History Surgical History History of carpal tunnel release History of thoracic surgery Pericardial effusion s/p pericardial window thought secondary to minoxidil, in 2010 at [facility]. H/O eye surgery (~2005) [id number] [facility] History of foot surgery Left Foot History of cholecystectomy (2008) History of rotator cuff surgery Bilateral. History of discectomy (2012) Family History Family History Father Cardiovascular disease Grandparent Cancer Mother COPD (chronic obstructive pulmonary disease) Social History Social History Social History: Surrogate medical decision maker: Shyla Hurst, daughter. Code status: Full code. Caffeine-decalf coffee, diet soda Smoking packs per day: 2 Smoking cigarettes per day: 40.0 Years smoked: 20 Smoking pack-years: 40.00 Smoking status: Former smoker Second hand tobacco smoke exposure: No Additional smoking assessment comments: 1979 Alcohol intake: former Alcohol use details: One beer daily. Substance use: never Substance use type: does not use Do You Feel Safe in your Home?: Yes Lack of Transportation: No Lack of Food: Never True Current Housing: I Have Housing Concerned About Future Housing: No Difficulty Paying Gas/Electric Bills: No Difficulty Paying for Meds: No Currently Unemployed: No Education: High School Diploma/GED Difficulty w/ Childcare or Family Care: No Living arrangements: alone Additional living arrangements comments: Lives in own home in [place]. Uses a motorized scooter and transfers with slide board. Occupation/Education: retired Additional occupation/education comments: Retired. 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 Spiritual care concerns: No Anes - Eval Final PreProcedure Day of Procedure 08/25/24 12:21 Patient weight: morbidly obese Lungs: normal air movement Airway: Mallampati scale class III and special considerations (Missing L upper incisor. ) Neurological: alert and oriented Last oral intake: >/= 8 hours ASA classification: IV Emergent: no Anesthetic plan: proceed Anesthesia type and monitoring: general ETT and standard monitoring Results Review: All pre-operative results and documents have been reviewed as part of the pre- operative evaluation. Complicated hx noted, AMELIA on CPAP w O2 4 l, HTN, PVD, CKD w prev HD, now stage 3, BMI 45, now for LE amputation. Informed Consent: The patient's anesthetic plan and its attendant risks and benefits were discussed with the patient/family/POA. Questions were solicited and answers provided to the satisfaction of the patient/family/POA.
--- NOTE | 2024-08-25 12:22 | WPDHPUPDATE1 ---
History and Physical Update Update Date/Time: 08/25/24 12:22 History and Physical has been reviewed, including an updated exam of the patient. There are NO changes in the patient's condition. Risks, benefits, and alternatives have been discussed and questions answered. Patient agrees to proceed with procedure.
--- NOTE | 2024-08-25 13:34 | S_PTH ---
PATIENT: Irwin Cyr Jr. LOC: [id number] U#:[id number] AGE/SX: 74/M ROOM: 348 RE08/21/[address]: Eboni Chavez APRN : 1950 BED: 01 DIS: 09/01/2024 SPEC #: [id number] RECD: 08/25/24 14:02 STATUS: CHANELLE REQ #: [id number] YOSELYN: 08/25/24 13:[address]: Adarsh Malone DEPT: [facility] Surgical RECD BY: Simon Finley ENTERED: 08/25/24 14:02 SP TYPE: Surgical OTHR DR: MD Lilliana Billings APRN Tissues: A - Leg Procedures: Hematoxylin and Eosin Stain Gross and Microscopic Level 5 Decalcification
--- NOTE | 2024-08-25 13:48 | SUR.OPER ---
Surgical specimen (right lower extremity) sent with LYLE Merchant and received in pathology by Simon
[2024-08-25] MEDS: fentaNYL CITRATE INJ (*CRX) 100 MCG/2 ML VIAL 25 MCG IV PUSH ×8 (15:00→15:55)
[2024-08-25] MEDS: HYDROmorphone HCL INJ (*CRX) 2 MG/ML VIAL 0.5 MG IV PUSH ×3 (15:15→15:26)
--- NOTE | 2024-08-25 15:21 | P.OP_ITS ---
Procedure Note - Detailed Date of Procedure 08/25/24 Pre-op Diagnosis INFECTED RIGHT FOOT ULCER Post-op Diagnosis Same Procedure Performed Right below-knee amputation Surgeon Adarsh Malone DO [employer] Rebecca Vila PA-C Anesthesia General Indications This is a 74-year-old man who presented with a chronic right foot wound continuously becomes infected with cellulitis. He has been performing local wound care to the area for several years. He has also seen vascular surgery but there are no good options to help with revascularization for him. The patient has chronic venous stasis dermatitis and lymphedema. He has a nonhealing right foot wound involving the base of his 1st and 2nd toes. Partial foot amputation did not seem to be a good option given his poor vascularity and chronic swelling. Discussions were made with the patient about amputation options and decision was made to proceed right below-knee amputation. Findings Right below-knee amputation was performed. Patient had a chronic right foot ulcer but the lower leg appeared healthy and viable. The patient did have chronic venous stasis dermatitis which results in some chronic skin thickening and made bringing the amputation stump together somewhat difficult. I had to use a combination of skin kristie and vertical mattress interrupted sutures. The right below-knee amputation was sent to the lab for pathology. Description of Procedure Procedure as well as risks, benefits, and alternatives were discussed with the patient. Written consent was obtained and placed in chart prior to procedure. Patient was brought back to surgical suite. He was placed supine on operating table. Time-out was done to confirm patient and procedure. He was then intubated by the anesthesia department. His right leg was prepped and draped in sterile fashion using Betadine prep. A tourniquet was used to help minimize blood loss during the procedure. Tourniquet time was 28 minutes. The location for amputation and skin incisions were carefully marked out on the below knee leg. An incision was made to include a larger posterior flap using a 10 blade scalpel. The incision was carried down through the subcutaneous tissue to the fascia. The fascia of the anterior muscle compartment was incised 1st and then this was carried out around to the lateral compartment and around the tibia. The periosteum was incised with the 10 blade scalpel and then a bone elevator was used to gently dissect back far enough on the tibia to where we could perform the amputation. A [employer] saw was then used to transect the tibia. I then continued the dissection down through the muscle and onto the fibula. The fibula periosteum was also cleared all the way back to where I could transect the fibula about 1 cm proximal to where the tibia was transected. The [place] saw again was used to transect the fibula at this point. The posterior compartment muscles were then dissected using the 10 blade scalpel until the tis edmar was completely dissected and leg was freed up and removed. The right lower leg was then sent to the lab for pathology. Curved hemostats were then placed on all the visible vessels and then the vessels were ligated using 3-0 Vicryl [id number] sutures. After ligating all the vessels, the tourniquet was released. There were a few other small branch vessels that were then ligated with 3-0 Vicryl [id number] sutures and electrocautery. Hemostasis then appeared adequate. I then used a [place] saw 1 more time to bevel the anterior edge the tibia. I then irrigated the stump using sterile saline. No other significant abnormalities were noted and hemostasis appeared adequate. The fascia was then brought together over the tibia and fibula using 0 Vicryl simple interrupted sutures. This appeared to approximate the fascia very well and bring the posterior flap up over the stump. Skin edges were then reapproximated using a skin stapler, 3-0 nylon vertical mattress interrupted sutures, and 2-0 Prolene vertical mattress interrupted sutures. Xeroform gauze was then applied followed by fluff gauze, ABD pads, Kerlix wrap, and large Jayesh wrap. The patient's leg was then also placed in a knee immobilizer. The patient was then awakened from anesthesia, extubated, and transferred to recovery. Estimated Blood Loss 150 Urine Output 300 Pathology Yes (Right below-knee amputation) Complications No immediate complications Condition Stable Disposition Floor [facility] Billing Surgery - Charge Forward: Surgery Billing
[2024-08-25] MEDS: HYDROmorphone HCL INJ (*CRX) 1 MG/ML SYR 0.5 MG IV PUSH ×2 (16:03→16:08)
--- NOTE | 2024-08-25 16:54 | PC.NURSE ---
Patient left unit at 1140 and was transported to surgery by bed. Arrived back to unit at 1630.
[2024-08-25] MEDS: EUCERIN CREAM 454 GM JAR 1 APPLIC TOPICAL (17:39)
[2024-08-25] MEDS: FAMOTIDINE 20 MG TABLET PO (17:39)
[2024-08-25] MEDS: GABAPENTIN 300 MG CAPSULE PO (17:39)
[2024-08-25] MEDS: HYDROmorphone HCL INJ (*CRX) 2 MG/ML VIAL 1 MG IV PUSH ×4 (17:41→23:36)
[2024-08-25] MEDS: METOPROLOL TARTRATE 50 MG TAB PO (20:40)
[2024-08-25] MEDS: ACETAMINOPHEN 325 MG TABLET 650 MG PO (21:45)
[2024-08-26] VITALS (10 sets, daily range): BP systolic 119–136; BP diastolic 41–58; PULSE 66–94; RESP 18; TEMP 36.3–37.1; O2SAT 95–100
[2024-08-26] MEDS: VANCOMYCIN 1,250 MG/NS 250 ML 1,250 MG/250 ML BAG 166.67 MG IVPB (00:12)
[2024-08-26] MEDS: ACETAMINOPHEN 325 MG TABLET 650 MG PO ×4 (01:51→20:35)
[2024-08-26] MEDS: HYDROmorphone HCL INJ (*CRX) 2 MG/ML VIAL 1 MG IV PUSH ×10 (01:51→22:35)
[2024-08-26 05:50] LABS: Basophils Absolute Auto 0.1 K/mm3 (0.0-0.1); Basophils Percent Auto 0.3 % (0.2-1.2); Eosinophils Percent Auto 0.3 % (0-4.4); Hematocrit 31.2 % (42.0-52.0); Hemoglobin 9.1 g/dL (14.0-18.0); Immature Granulocyte Absolute 0.08 K/mm3 (0.00-0.031); Immature Granulocyte Percent A 0.5 % (0-0.5); Lymphocytes Absolute Auto 0.32 K/mm3 (0.9-3.2); Lymphocytes Percent Auto 2.2 % (18.3-44.2); Mean Corpuscular HGB Conc 29.2 g/dl (32-36); Mean Corpuscular Hemoglobin 25.9 pg (26-34); Mean Corpuscular Volume 88.9 fl (80-100); Mean Platelet Volume 9.8 fl (7.4-10.4); Monocytes Absolute Auto 1.4 K/mm3 (0.1-0.6); Monocytes Percent Auto 9.4 % (2.6-8.5); Neutrophils Absolute Auto 12.7 K/mm3 (1.3-6.7); Neutrophils Percent Auto 87.3 % (45.5-73.1); Platelet Count Result 293 k/mm3 (150-375); Red Blood Count 3.51 M/mm3 (4.6-6.20); Red Cell Distribution Width 16.1 % (11.5-14.5); White Blood Count 14.6 K/mm3 (4.5-10.0)
[2024-08-26 06:04] LABS: Alanine Aminotransferase 8 U/L (6-50); Albumin Level 3.2 g/dL (3.5-5.1); Alkaline Phosphatase 42 U/L (38-126); Anion Gap 7 mmol/L (4-12); Aspartate Amino Transferase 19 U/L (17-59); Bilirubin,Total 0.5 mg/dL (0.2-1.3); Blood Urea Nitrogen 46 mg/dL (9-20); Calcium 8.6 mg/dL (8.4-10.2); Carbon Dioxide 32 mmol/L (22-30); Chloride 96 mmol/L (98-107); Estimated CRCL calculation 55 ml/min; Estimated Glomerular Filt Rate 41; Glucose 99 mg/dL (65-110); Potassium 3.8 mmol/L (3.4-5.0); Sodium 135 mmol/L (137-145)
[2024-08-26] MEDS: BUMETANIDE 1 MG TABLET PO ×3 (06:05→14:09)
[2024-08-26] MEDS: MEROPENEM 1 GM/NS 100 ML 1 GM/100 ML BAG IVPB ×2 (06:05→18:23)
[2024-08-26] MEDS: LEVOTHYROXINE SODIUM 100 MCG TABLET 200 MCG PO (06:05)
[2024-08-26 06:51] LABS: Hypochromasia 1+; Platelet Estimate Adequate (Adequate); Schistocytes None Seen; Stomatocytes 1+
--- NOTE | 2024-08-26 07:40 | P.PNAN_ITS ---
Anes - Prog Note Post-Op Date/Time: 08/26/24 07:40 Cardiovascular status: normal Respiratory status: normal Airway patency: baseline Mental status: baseline Post-Op hydration status: normal Vital Signs: Last Vital Signs Temp 36.3 C L 08/26/24 06:16 Pulse 80 08/26/24 06:16 Resp 18 08/26/24 06:16 BP 134/52 L 08/26/24 06:16 Pulse Ox 98 08/26/24 06:16 O2 Del Method CPAP 08/26/24 02:42 O2 Flow Rate 4 08/26/24 02:42 FiO2 21 08/24/24 21:01 Pain Score (VAS): 3 I/O: Intake & Output 08/25/24 08/25/24 08/26/24 15:59 23:59 07:59 Intake Total 200 200 850 Output Total 8173 054 0654 Balance -800 -300 -750 Laboratory Tests 08/26/24 05:32 08/26/24 05:32 08/25/24 08/26/24 09:02 05:32 WBC 14.6 H RBC 3.51 L Hgb 9.1 L Hct 31.2 L MCV 88.9 MCH 25.9 L MCHC 29.2 L RDW 16.1 H Plt Count 293 MPV 9.8 Immature Gran % (Auto) 0.5 Neut % (Auto) 87.3 H Lymph % (Auto) 2.2 L [place] % (Auto) 9.4 H Eos % (Auto) 0.3 Baso % (Auto) 0.3 Lymph # (Auto) 0.32 L [place] # (Auto) 1.4 H Eos # (Auto) 0.0 Baso # (Auto) 0.1 Abs Immat Gran (auto) 0.08 H Absolute Neuts (auto) 12.7 H Absolute Nucleated RBC 0.000 Band Neutrophils % Not Reportable Nucleated RBC % 0.0 Platelet Estimate Adequate Hypochromasia 1+ Stomatocytes 1+ Schistocytes None seen Sodium 135 L Potassium 3.8 Chloride 96 L Carbon Dioxide 32 H Anion Gap 7 BUN 46 H Creatinine 1.65 H Estim Creat Clear Calc 55 Estimated GFR 41 L Glucose 99 Calcium 8.6 Magnesium 2.0 Total Bilirubin 0.5 AST 19 ALT 8 Alkaline Phosphatase 42 Total Protein 6.0 L Albumin 3.2 L Blood Type A Positive Antibody Screen Negative Microbiology 08/20/24 12:02 Blood Blood Culture - Final 08/20/24 13:19 Blood Blood Culture - Final 08/23/24 10:53 Foot - Unspecified Anaerobic Culture - Preliminary 08/23/24 10:53 Foot - Unspecified Aerobic Culture - Preliminary Methicillin Resis Staph Aureus Pseudomonas aeruginosa Post-procedural complaints: none Patient Feedback: Patient satisfied with anesthetic care.
[2024-08-26] MEDS: METOPROLOL TARTRATE 50 MG TAB PO ×2 (08:53→20:37)
[2024-08-26] MEDS: SPIRONOLACTONE 25 MG TABLET PO (08:53)
[2024-08-26] MEDS: LORATADINE 10 MG TABLET PO (08:54)
[2024-08-26] MEDS: ENOXAPARIN 40 MG/0.4 ML SYRINGE SUB-Q (08:54)
[2024-08-26] MEDS: TAMSULOSIN HCL 0.4 MG CAPSULE PO (08:54)
[2024-08-26] MEDS: minoxidiL 2.5 MG TABLET PO (08:54)
[2024-08-26] MEDS: GABAPENTIN 300 MG CAPSULE PO ×3 (08:54→17:23)
[2024-08-26] MEDS: metOLazone 5 MG TABLET PO (08:54)
[2024-08-26] MEDS: allopurinoL 100 MG TABLET PO (08:54)
[2024-08-26] MEDS: EUCERIN CREAM 454 GM JAR 1 APPLIC TOPICAL ×2 (08:54→17:23)
[2024-08-26] MEDS: FLUTICASONE PROPIONATE 0.05% NA SPR 16 GM BTL (*BKC) 1 SPRAY NASAL (08:54)
[2024-08-26] MEDS: FAMOTIDINE 20 MG TABLET PO ×2 (08:54→17:23)
[2024-08-26] MEDS: calcitrioL 0.25 MCG CAPSULE PO (08:54)
--- NOTE | 2024-08-26 09:48 | PM.IMPN ---
Progress Note: A&P Assessment and Plan (1) Venous stasis ulcer of right foot: Code(s): I83.015 - Varicose veins of right lower extremity with ulcer other part of foot Status: Acute Assessment and Plan: - ankle XR: Lucency over the right lateral malleolus. Follow-up advised. 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 - tib fib XR: No definite acute osseous abnormality right leg. Lucencies in the area of the medial and lateral malleoli which may be summation shadows. Clinical correlation and follow-up advised.. - foot XR: Extensive soft tissue swelling. No definite evidence for osteomyelitis. - started on Levaquin and Flagyl on 08/20/2024. Reviewed micro and patient has history of Pseudomonas and Staph with multiple resistances in March of 2024. Previously placed on meropenem after case was reviewed with ID pharmacist during the patient's most recent admission in May of 2024. Will place patient back on meropenem as well as vancomycin and obtain wound culture. - wound RN consulted. Recommendations: daily cleanse right lower leg and foot by the 5th toe, apply antifungal powder to open weeping maceration areas. place ABD pads and roll gauze cover if patient allows, if not place nito pads under and over foot and leg to control exudate and change daily and PRN if heavily soiled. -Surgery consulted, plan for a below-knee amputation of the right leg, added to surgery schedule for 08/25. HOLD eliquis. DVT prophylaxis Lovenox 40 mg subq daily. -Blood cultures no growth to date. -Right BKA performed yesterday, 08/25, plan for pain control -Surgery following, per note today: POD1. Dressing in place today. Keep knee immobilizer in place to prevent flexion contraction. Patient having issues with pain control. Options limited d/t allergies. Will discuss with the surgeon. (2) Peripheral vascular disease: Code(s): I73.9 - Peripheral vascular disease, unspecified Status: Acute Assessment and Plan: - follows with Chris DE LEON with vascular surgery. Reportedly told at most recent visit on XX that there were no further interventions to increased blood flow to his affected extremity as the disease is below the knee. (3) CHF (congestive heart failure): Qualifiers: Heart failure chronicity: chronic Heart failure type: diastolic Qualified Code(s): I50.32 - Chronic diastolic (congestive) heart failure Code(s): I50.9 - Heart failure, unspecified Status: Chronic Assessment and Plan: - echo, previous: Estimated EF 65-70%, grade 1 diastolic dysfunction. Technically difficult echo. See report for details. - continue home medications: Bumex (adjusting administration times to help patient get improved sleep), metolazone, spironolactone. Hold Diamox, contraindicated in CKD stage 4. - monitor I&Os daily weights (4) Atrial fibrillation: Qualifiers: Atrial fibrillation type: longstanding persistent Qualified Code(s): I48.11 - Longstanding persistent atrial fibrillation Code(s): I48.91 - Unspecified atrial fibrillation Status: Chronic Assessment and Plan: - continue home medications: Eliquis and Metoprolol. - Eliquis is on hold for surgery later in week, right BKA. - Lovenox 40 mg subq daily, hold dose 5/27 AM. (5) Chronic anemia: Code(s): D64.9 - Anemia, unspecified Status: Acute Assessment and Plan: - Hgb 9.1, previously 8.4 on 05/19/2024. At baseline. - transfuse if <7. - Continue with daily labs (6) CKD (chronic kidney disease) stage 3, GFR 30-59 ml/min: Qualifiers: Chronic kidney disease stage 3 subtype: stage 3b (GFR 30-44) Qualified Code(s): N18.32 - Chronic kidney disease, stage 3b Code(s): N18.3 - Chronic kidney disease, stage 3 (moderate) Status: Acute Assessment and Plan: - creatinine 1.65 and GFR 41, previously 2.23 and GFR 29 on 05/19/2024 - trend renal function - trend electrolytes, correct as needed (7) Essential (primary) hypertension: Code(s): I10 - Essential (primary) hypertension Status: Chronic Assessment and Plan: - chronic, currently 126/54. - continue home medications: Metoprolol - Continue to monitor (8) AMELIA (obstructive sleep apnea): Code(s): G47.33 - Obstructive sleep apnea (adult) (pediatric) Status: Acute Assessment and Plan: - continue home CPAP Plan Diet: Heart healthy, chocolate ensure GI Prophylaxis: Not currently indicated DVT Prophylaxis: Lovenox until surgery clears Eliquis IV fluids: None Lines/Tubes: Peripheral IV Code Status: Full code Subjective Date/time seen: 08/26/24 1140 Interval history: Pt presented to the ED on 08/20 for chronic (3 yrs) R foot wound with increased erythema, edema, and malodorous smell x 1 week. Hx of PVD, gout, chronic lymphedema of the BLE, chronic anemia, AMELIA, AFib, rosacea, GERD, CHF, dyslipidemia, hypertension, peripheral polyneuropathy, and hypothyroidism. Pt sees outpt vasc at [facility] (Dr. Daniels) with no plans for procedure to increase vacular flow to leg. Recent admission here for similar sx in May 2024 and was D/C with wound care daily. ED workup showed: No leukocytosis, hemoglobin 9.5 (at baseline), sodium 133 (at baseline), creatinine 2.48 and GFR 26 (previously 2.23 and GFR 29 on 05/19/2024).. Ankle XR showed a lucency over the right lateral malleolus and osteoarthritic changes the ankle and subtalar joints. Tib/fib XR showed no definite acute osseous abnormality of the right leg and lipases in the area of the medial and lateral malleoli which may be summation shadows. Foot XR showed extensive soft tissue swelling and no definite evidence of osteomyelitis. R BKA was ultimately performed on 08/26 via surgery. Today when assessed, pt in a moderate amount of pain to his RLE. Pt written for Q2 hr Dilaudid and [place] but refuses the [place] because he states in the past he has not been able to tolerate it and throws up pain medication, he does not even want to try it here. We will continue with the Dilaudid protocol and see how his pain is tomorrow. Updated pt that he would likely be D/C to a rehab and he would have to take something PO there for pain. Pt states that something has worked in the past that is PO but cannot remember the name. Pt denies SOB, CP, or any other sx today. Review of Systems Review of Systems: All systems reviewed & are unremarkable except as noted in HPI and below Exam Const: General: uncomfortable Other: , male, obese body habitus, nontoxic appearance HENMT: Face/Nose/Sinus: Normal nares present Other: tachy mucus membranes Eyes: General: appearance normal, both eyes and all related structures Sclera: sclerae normal Neck: Neck: supple and no JVD Carotids: no bruits Resp: Effort & Inspection: normal respiratory effort Auscultation: clear to auscultation bilaterally Other: Speaking in complete sentences. Cardio: Rate: regular rate Rhythm: regular rhythm Other: S1-S2 present without murmur, rub, ectopy GI: Auscultation: normal bowel sounds Other: Abdomen soft, nondistended, nontender. Normoactive bowel sounds in all quadrants. Skin: General skin exam: normal color Other: RLE BKA ramone wrap dressing C/D/I with knee immobilizer applied Neuro: Speech: normal speech Motor exam (neuro): Normal motor muscle tone present throughout Sensory Exam: normal sensation Other: A&O x4 Extrem: Other: LLE with chronic lymphedema and venous stasis dermatitis. See skin. Psych: Mental Status: mental status grossly normal Affect: normal affect Other: Good insight and judgment, very pleasant Objective Data Vital Signs Vital Signs: Vital Signs - 24 hr 08/25/24 12:41 08/25/24 14:55 08/25/24 15:10 Temperature 97.9 F 97.1 F L Pulse Rate 72 73 64 Respiratory Rate 16 20 18 Blood Pressure 127/56 L 145/78 H 136/72 Pulse Oximetry 99 95 99 Oxygen Delivery Room Air Simple Face Mask Simple Face Mask Oxygen Flow Rate 8 8 08/25/24 15:25 08/25/24 15:28 08/25/24 15:30 Temperature Pulse Rate 77 77 Respiratory Rate 18 18 Blood Pressure 131/66 138/66 Pulse Oximetry 100 98 96 Oxygen Delivery Simple Face Mask Room Air Nasal Cannula Oxygen Flow Rate 8 2 08/25/24 15:45 08/25/24 16:00 08/25/24 16:08 Temperature Pulse Rate 75 72 80 Respiratory Rate 18 18 16 Blood Pressure 138/58 L 130/64 127/67 Pulse Oximetry 97 97 97 Oxygen Delivery Nasal Cannula Nasal Cannula Nasal Cannula Oxygen Flow Rate 2 2 2 08/25/24 16:46 08/25/24 17:00 08/25/24 17:30 Temperature 98.0 F 98.0 F 98.0 F Pulse Rate 75 68 84 Respiratory Rate 18 18 18 Blood Pressure 144/79 H 130/65 138/59 L Pulse Oximetry 95 97 97 Oxygen Delivery Oxygen Flow Rate 08/25/24 18:39 08/25/24 20:40 08/25/24 21:58 Temperature 98.4 F 97.1 F L Pulse Rate 79 87 87 Respiratory Rate 18 18 Blood Pressure 119/54 L 103/67 Pulse Oximetry 99 97 Oxygen Delivery Oxygen Flow Rate 08/25/24 23:30 08/25/24 23:30 08/26/24 01:58 Temperature 97.6 F Pulse Rate 71 71 85 Respiratory Rate 18 Blood Pressure 119/52 L Pulse Oximetry 96 96 98 Oxygen Delivery CPAP CPAP Oxygen Flow Rate 4 08/26/24 02:42 08/26/24 02:42 08/26/24 06:16 Temperature 97.3 F L Pulse Rate 94 94 80 Respiratory Rate 18 Blood Pressure 134/52 L Pulse Oximetry 95 95 98 Oxygen Delivery CPAP CPAP Oxygen Flow Rate 4 08/26/24 08:00 08/26/24 08:53 08/26/24 09:00 Temperature 97.6 F Pulse Rate 86 86 Respiratory Rate 18 Blood Pressure 126/54 L Pulse Oximetry 98 98 Oxygen Delivery Room Air Oxygen Flow Rate Intake/Output Intake/Output: Intake & Output 08/23/24 08/24/24 08/25/24 08/26/24 23:59 23:59 23:59 23:59 Intake Total 3260 2570 750 1324 Output Total 3676 4400 2900 1600 Balance -415 -1830 -2150 -276 Meds/Results Medications: Active Medications Generic Name Dose Route Start Last Admin Trade Name Freq PRN Reason Stop Dose Admin Acetaminophen 650 mg 08/20/24 16:16 08/26/24 06:45 Acetaminophen 325 Mg Tablet PO 650 mg Q4H PRN Administration Mild Pain (1-3) or Fever Allopurinol 100 mg 08/21/24 09:00 08/26/24 08:54 Allopurinol 100 Mg Tablet PO 100 mg DAILY ANGELA Administration Apixaban 5 mg 08/20/24 22:05 08/21/24 08:55 Apixaban 5 Mg Tablet PO 5 mg Q12HR ANGELA Administration Bumetanide 1 mg 08/23/24 14:00 08/26/24 09:00 Bumetanide 1 Mg Tablet PO 1 mg TID@0600,1000,1400 ANGELA Administration Calcitriol 0.25 mcg 08/21/24 09:00 08/26/24 08:54 Calcitriol 0.25 Mcg Capsule PO 0.25 mcg MoWeFr@0900 ANGELA Administration Docusate Sodium 100 mg 08/20/24 21:47 Docusate Sodium 100 Mg Capsule PO Q12H PRN constipation Enoxaparin Sodium 40 mg 08/22/24 10:30 08/26/24 08:54 Enoxaparin 40 Mg/0.4 Ml Syringe SUB-Q 40 mg DAILY ANGELA Administration Famotidine 20 mg 08/20/24 22:05 08/26/24 08:54 Famotidine 20 Mg Tablet PO 20 mg BID ANGELA Administration Fluticasone Propionate 1 spray 08/21/24 09:00 08/26/24 08:54 Fluticasone Propionate 0.05% Na Spr 16 Gm Btl (*Bkc) NASAL 1 spray DAILY ANGELA Administration Gabapentin 300 mg 08/20/24 22:05 08/26/24 08:54 Gabapentin 300 Mg Capsule PO 300 mg TID ANGELA Administration Hydromorphone HCl 1 mg 08/25/24 16:16 08/26/24 08:55 Hydromorphone Hcl Inj (*Crx) 2 Mg/Ml Vial IV PUSH 1 mg Q2H PRN Administration Breakthrough Pain Rated 7-10 or NPO Hydromorphone HCl 0.5 mg 08/25/24 16:17 Hydromorphone Hcl Inj (*Crx) 2 Mg/Ml Vial IV PUSH Q2H PRN Breakthrough Pain Rated 4-6 or NPO Meropenem 1 gm in 100 mls @ 200 mls/hr 08/20/24 19:00 08/26/24 06:35 IVPB Infused Q12H ANGELA Infusion Vancomycin HCl 1,250 mg in 250 mls @ 166.667 mls/hr 08/25/24 01:00 08/26/24 01:42 Vancomycin 1,250 Mg/Ns 250 Ml IVPB Infused Q24H ANGELA Infusion Levothyroxine Sodium 200 mcg 08/21/24 06:30 08/26/24 06:05 Levothyroxine Sodium 100 Mcg Tablet PO 200 mcg DAILY@0630 ANGELA Administration Loratadine 10 mg 08/22/24 10:05 08/26/24 08:54 Loratadine 10 Mg Tablet PO 10 mg DAILY ANGELA Administration Metolazone 5 mg 08/21/24 09:00 08/26/24 08:54 Metolazone 5 Mg Tablet PO 5 mg DAILY ANGELA Administration Metoprolol Tartrate 50 mg 08/20/24 22:05 08/26/24 08:53 Metoprolol Tartrate 50 Mg Tab PO 50 mg Q12HR ANGELA Administration Minoxidil 2.5 mg 08/21/24 09:00 08/26/24 08:54 Minoxidil 2.5 Mg Tablet PO 2.5 mg DAILY ANGELA Administration Multi-Ingred Cream/Lotion/Oil/Oint 1 applic 08/21/24 09:00 08/26/24 08:54 Eucerin Cream 454 Gm Jar TOPICAL 1 applic BID ANGELA Administration Naloxone HCl 0.1 mg 08/25/24 16:14 Naloxone Hcl 0.4 Mg/Ml Vial IV PUSH Q2M PRN Opiate Reversal Oxycodone/Acetaminophen 1 tablet 08/25/24 16:14 Oxycodone/Acetaminophen (*Crx) 5-325 Mg Tablet PO Q4H PRN Pain Rated 4-6 Oxycodone/Acetaminophen 1 tab 08/25/24 16:14 Oxycodone/Acetaminophen (*Crx) 10-325 Mg Tablet PO Q6H PRN Pain Rated 7-10 Polyethylene Glycol 17 gm 08/22/24 10:05 08/26/24 09:00 Polyethylene Glycol 3350 17 Gm Powd.Pack PO Not Given DAILY ANGELA Potassium Chloride 10 meq 08/20/24 22:04 Potassium Chloride 10 Meq Er Tablet PO DAILY PRN leg cramping Promethazine HCl 12.5 mg 08/20/24 16:16 Promethazine Hcl 25 Mg/Ml Ampul IV PUSH Q6H PRN Nausea Spironolactone 25 mg 08/21/24 09:00 08/26/24 08:53 Spironolactone 25 Mg Tablet PO 25 mg DAILY ANGELA Administration Tamsulosin HCl 0.4 mg 08/21/24 09:00 08/26/24 08:54 Tamsulosin Hcl 0.4 Mg Capsule PO 0.4 mg QAM ANGELA Administration Radiology Results: ITS Impressions Ankle X-Ray 08/20/24 12:55 IMPRESSION: Lucency over the right lateral malleolus. Follow-up advised. 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 Tibia/Fibula X-Ray 08/20/24 13:03 IMPRESSION: No definite acute osseous abnormality right leg. Lucencies in the area of the medial and lateral malleoli which may be summation shadows. Clinical correlation and follow-up advised.. Foot X-Ray 08/20/24 13:07 Impression: Extensive soft tissue swelling. No definite evidence for osteomyelitis. Labs Labs: Laboratory Results - last 24 hr 08/25/24 08/26/24 09:02 05:32 WBC 14.6 H RBC 3.51 L Hgb 9.1 L Hct 31.2 L MCV 88.9 MCH 25.9 L MCHC 29.2 L RDW 16.1 H Plt Count 293 MPV 9.8 Immature Gran % (Auto) 0.5 Neut % (Auto) 87.3 H Lymph % (Auto) 2.2 L [place] % (Auto) 9.4 H Eos % (Auto) 0.3 Baso % (Auto) 0.3 Lymph # (Auto) 0.32 L [place] # (Auto) 1.4 H Eos # (Auto) 0.0 Baso # (Auto) 0.1 Abs Immat Gran (auto) 0.08 H Absolute Neuts (auto) 12.7 H Absolute Nucleated RBC 0.000 Band Neutrophils % Not Reportable Nucleated RBC % 0.0 Platelet Estimate Adequate Hypochromasia 1+ Stomatocytes 1+ Schistocytes None seen Sodium 135 L Potassium 3.8 Chloride 96 L Carbon Dioxide 32 H Anion Gap 7 BUN 46 H Creatinine 1.65 H Estim Creat Clear Calc 55 Estimated GFR 41 L Glucose 99 Calcium 8.6 Magnesium 2.0 Total Bilirubin 0.5 AST 19 ALT 8 Alkaline Phosphatase 42 Total Protein 6.0 L Albumin 3.2 L Blood Type A Positive Antibody Screen Negative Quality VTE Prophylaxis VTE prophylaxis: pharmacologic ordered
--- NOTE | 2024-08-26 11:27 | P.PNGS_ITS ---
Progress Note: A&P Assessment and Plan (1) Cellulitis of right foot: Code(s): L03.115 - Cellulitis of right lower limb Status: Acute Assessment and Plan: * POD1. Dressing in place today. Keep knee immobilizer in place to prevent flexion contraction. Patient having issues with pain control. Options limited d/t allergies. Will discuss with the surgeon. (2) Venous stasis ulcer of right foot: Code(s): I83.015 - Varicose veins of right lower extremity with ulcer other part of foot Status: Acute (3) Lymphedema of both lower extremities: Code(s): I89.0 - Lymphedema, not elsewhere classified Status: Acute Subjective Subjective Date/Time Seen: 08/26/24 11:27 Interval history: POD1. No acute events or fevers overnight. WBC count 14.6 likely reactive to surgery. Patient having lots of pain to his right leg today. Exam Extrem: Other: Dressing dry and intact. Knee immobilizer in place. Objective Data Vital Signs Vital Signs: Vital Signs - 24 hr 08/25/24 12:41 08/25/24 14:55 08/25/24 15:10 Temperature 97.9 F 97.1 F L Pulse Rate 72 73 64 Respiratory Rate 16 20 18 Blood Pressure 127/56 L 145/78 H 136/72 Pulse Oximetry 99 95 99 Oxygen Delivery Room Air Simple Face Mask Simple Face Mask Oxygen Flow Rate 8 8 08/25/24 15:25 08/25/24 15:28 08/25/24 15:30 Temperature Pulse Rate 77 77 Respiratory Rate 18 18 Blood Pressure 131/66 138/66 Pulse Oximetry 100 98 96 Oxygen Delivery Simple Face Mask Room Air Nasal Cannula Oxygen Flow Rate 8 2 08/25/24 15:45 08/25/24 16:00 08/25/24 16:08 Temperature Pulse Rate 75 72 80 Respiratory Rate 18 18 16 Blood Pressure 138/58 L 130/64 127/67 Pulse Oximetry 97 97 97 Oxygen Delivery Nasal Cannula Nasal Cannula Nasal Cannula Oxygen Flow Rate 2 2 2 08/25/24 16:46 08/25/24 17:00 08/25/24 17:30 Temperature 98.0 F 98.0 F 98.0 F Pulse Rate 75 68 84 Respiratory Rate 18 18 18 Blood Pressure 144/79 H 130/65 138/59 L Pulse Oximetry 95 97 97 Oxygen Delivery Oxygen Flow Rate 08/25/24 18:39 08/25/24 20:40 08/25/24 21:58 Temperature 98.4 F 97.1 F L Pulse Rate 79 87 87 Respiratory Rate 18 18 Blood Pressure 119/54 L 103/67 Pulse Oximetry 99 97 Oxygen Delivery Oxygen Flow Rate 08/25/24 23:30 08/25/24 23:30 08/26/24 01:58 Temperature 97.6 F Pulse Rate 71 71 85 Respiratory Rate 18 Blood Pressure 119/52 L Pulse Oximetry 96 96 98 Oxygen Delivery CPAP CPAP Oxygen Flow Rate 08/26/24 02:42 08/26/24 02:42 08/26/24 06:16 Temperature 97.3 F L Pulse Rate 94 94 80 Respiratory Rate 18 Blood Pressure 134/52 L Pulse Oximetry 95 95 98 Oxygen Delivery CPAP CPAP Oxygen Flow Rate 08/26/24 08:00 08/26/24 08:53 08/26/24 09:00 Temperature 97.6 F Pulse Rate 86 86 Respiratory Rate 18 Blood Pressure 126/54 L Pulse Oximetry 98 98 Oxygen Delivery Room Air Oxygen Flow Rate Intake/Output Intake/Output: Intake & Output 08/23/24 08/24/24 08/25/24 08/26/24 23:59 23:59 23:59 23:59 Intake Total 3260 2570 750 1324 Output Total 3675 4400 2900 2375 [facility] -415 -1830 -2150 -1051 Meds/Results Medications: Active Medications Generic Name Dose Route Start Last Admin Trade Name Freq PRN Reason Stop Dose Admin Acetaminophen 650 mg 08/20/24 16:16 08/26/24 06:45 Acetaminophen 325 Mg Tablet PO 650 mg Q4H PRN Administration Mild Pain (1-3) or Fever Allopurinol 100 mg 08/21/24 09:00 08/26/24 08:54 Allopurinol 100 Mg Tablet PO 100 mg DAILY ANGELA Administration Apixaban 5 mg 08/20/24 22:05 08/21/24 08:55 Apixaban 5 Mg Tablet PO 5 mg Q12HR ANGELA Administration Bumetanide 1 mg 08/23/24 14:00 08/26/24 09:00 Bumetanide 1 Mg Tablet PO 1 mg TID@0600,1000,1400 ANGELA Administration Calcitriol 0.25 mcg 08/21/24 09:00 08/26/24 08:54 Calcitriol 0.25 Mcg Capsule PO 0.25 mcg MoWeFr@0900 ANGELA Administration Docusate Sodium 100 mg 08/20/24 21:47 Docusate Sodium 100 Mg Capsule PO Q12H PRN constipation Enoxaparin Sodium 40 mg 08/22/24 10:30 08/26/24 08:54 Enoxaparin 40 Mg/0.4 Ml Syringe SUB-Q 40 mg DAILY ANGELA Administration Famotidine 20 mg 08/20/24 22:05 08/26/24 08:54 Famotidine 20 Mg Tablet PO 20 mg BID ANGELA Administration Fluticasone Propionate 1 spray 08/21/24 09:00 08/26/24 08:54 Fluticasone Propionate 0.05% Na Spr 16 Gm Btl (*Bkc) NASAL 1 spray DAILY ANGELA Administration Gabapentin 300 mg 08/20/24 22:05 08/26/24 08:54 Gabapentin 300 Mg Capsule PO 300 mg TID ANGELA Administration Hydromorphone HCl 1 mg 08/25/24 16:16 08/26/24 08:55 Hydromorphone Hcl Inj (*Crx) 2 Mg/Ml Vial IV PUSH 1 mg Q2H PRN Administration Breakthrough Pain Rated 7-10 or NPO Hydromorphone HCl 0.5 mg 08/25/24 16:17 Hydromorphone Hcl Inj (*Crx) 2 Mg/Ml Vial IV PUSH Q2H PRN Breakthrough Pain Rated 4-6 or NPO Meropenem 1 gm in 100 mls @ 200 mls/hr 08/20/24 19:00 08/26/24 06:35 IVPB Infused Q12H ANGELA Infusion Vancomycin HCl 1,250 mg in 250 mls @ 166.667 mls/hr 08/25/24 01:00 08/26/24 01:42 Vancomycin 1,250 Mg/Ns 250 Ml IVPB Infused Q24H ANGELA Infusion Levothyroxine Sodium 200 mcg 08/21/24 06:30 08/26/24 06:05 Levothyroxine Sodium 100 Mcg Tablet PO 200 mcg DAILY@0630 ANGELA Administration Loratadine 10 mg 08/22/24 10:05 08/26/24 08:54 Loratadine 10 Mg Tablet PO 10 mg DAILY ANGELA Administration Metolazone 5 mg 08/21/24 09:00 08/26/24 08:54 Metolazone 5 Mg Tablet PO 5 mg DAILY ANGELA Administration Metoprolol Tartrate 50 mg 08/20/24 22:05 08/26/24 08:53 Metoprolol Tartrate 50 Mg Tab PO 50 mg Q12HR ANGELA Administration Minoxidil 2.5 mg 08/21/24 09:00 08/26/24 08:54 Minoxidil 2.5 Mg Tablet PO 2.5 mg DAILY ANGELA Administration Multi-Ingred Cream/Lotion/Oil/Oint 1 applic 08/21/24 09:00 08/26/24 08:54 Eucerin Cream 454 Gm Jar TOPICAL 1 applic BID ANGELA Administration Naloxone HCl 0.1 mg 08/25/24 16:14 Naloxone Hcl 0.4 Mg/Ml Vial IV PUSH Q2M PRN Opiate Reversal Oxycodone/Acetaminophen 1 tablet 08/25/24 16:14 Oxycodone/Acetaminophen (*Crx) 5-325 Mg Tablet PO Q4H PRN Pain Rated 4-6 Oxycodone/Acetaminophen 1 tab 08/25/24 16:14 Oxycodone/Acetaminophen (*Crx) 10-325 Mg Tablet PO Q6H PRN Pain Rated 7-10 Polyethylene Glycol 17 gm 08/22/24 10:05 08/26/24 09:00 Polyethylene Glycol 3350 17 Gm Powd.Pack PO Not Given DAILY [facility] Potassium Chloride 10 meq 08/20/24 22:04 Potassium Chloride 10 Meq Er Tablet PO DAILY PRN leg cramping Promethazine HCl 12.5 mg 08/20/24 16:16 Promethazine Hcl 25 Mg/Ml Ampul IV PUSH Q6H PRN Nausea Spironolactone 25 mg 08/21/24 09:00 08/26/24 08:53 Spironolactone 25 Mg Tablet PO 25 mg DAILY ANGELA Administration Tamsulosin HCl 0.4 mg 08/21/24 09:00 08/26/24 08:54 Tamsulosin Hcl 0.4 Mg Capsule PO 0.4 mg QAM ANGELA Administration Radiology Results: ITS Impressions Ankle X-Ray 08/20/24 12:55 IMPRESSION: Lucency over the right lateral malleolus. Follow-up advised. 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 Tibia/Fibula X-Ray 08/20/24 13:03 IMPRESSION: No definite acute osseous abnormality right leg. Lucencies in the area of the medial and lateral malleoli which may be summation shadows. Clinical correlation and follow-up advised.. Foot X-Ray 08/20/24 13:07 Impression: Extensive soft tissue swelling. No definite evidence for osteomyelitis. Labs Labs: Laboratory Results - last 24 hr 08/26/24 05:32 WBC 14.6 H RBC 3.51 L Hgb 9.1 L Hct 31.2 L MCV 88.9 MCH 25.9 L MCHC 29.2 L RDW 16.1 H Plt Count 293 MPV 9.8 Immature Gran % (Auto) 0.5 Neut % (Auto) 87.3 H Lymph % (Auto) 2.2 L [place] % (Auto) 9.4 H Eos % (Auto) 0.3 Baso % (Auto) 0.3 Lymph # (Auto) 0.32 L [place] # (Auto) 1.4 H Eos # (Auto) 0.0 Baso # (Auto) 0.1 Abs Immat Gran (auto) 0.08 H Absolute Neuts (auto) 12.7 H Absolute Nucleated RBC 0.000 Band Neutrophils % Not Reportable Nucleated RBC % 0.0 Platelet Estimate Adequate Hypochromasia 1+ Stomatocytes 1+ Schistocytes None seen Sodium 135 L Potassium 3.8 Chloride 96 L Carbon Dioxide 32 H Anion Gap 7 BUN 46 H Creatinine 1.65 H Estim Creat Clear Calc 55 Estimated GFR 41 L Glucose 99 Calcium 8.6 Magnesium 2.0 Total Bilirubin 0.5 AST 19 ALT 8 Alkaline Phosphatase 42 Total Protein 6.0 L Albumin 3.2 L
[2024-08-26] MEDS: IBUPROFEN IV 400 MG in SODIUM CHLORIDE 0.9% IV 100 ML 208 MG IVPB (17:23)
[2024-08-27] VITALS (8 sets, daily range): BP systolic 101–131; BP diastolic 48–61; PULSE 63–91; RESP 16–18; TEMP 36.8–37.5; O2SAT 95–99
[2024-08-27 01:21] LABS: Vancomycin Trough 23.1 ug/mL (10.0-20.0)
[2024-08-27] MEDS: IBUPROFEN IV 400 MG in SODIUM CHLORIDE 0.9% IV 100 ML 208 MG IVPB ×2 (03:17→13:51)
[2024-08-27] MEDS: HYDROmorphone HCL INJ (*CRX) 2 MG/ML VIAL 1 MG IV PUSH ×3 (04:05→11:58)
--- NOTE | 2024-08-27 05:23 | PC.NURSE ---
At the request of the patient he was moved out of the speciality bed at [id number]
[2024-08-27] MEDS: LEVOTHYROXINE SODIUM 100 MCG TABLET 200 MCG PO (06:03)
[2024-08-27] MEDS: MEROPENEM 1 GM/NS 100 ML 1 GM/100 ML BAG IVPB (06:03)
[2024-08-27] MEDS: BUMETANIDE 1 MG TABLET PO ×3 (06:03→13:50)
[2024-08-27 06:17] LABS: MRSA (PCR) DETECTED (NOT DETECTE)
[2024-08-27 06:33] LABS: Basophils Percent Auto 0.3 % (0.2-1.2); Eosinophils Absolute Auto 0.3 K/mm3 (0-0.3); Eosinophils Percent Auto 2.1 % (0-4.4); Hemoglobin 8.4 g/dL (14.0-18.0); Immature Granulocyte Absolute 0.07 K/mm3 (0.00-0.031); Immature Granulocyte Percent A 0.6 % (0-0.5); Lymphocytes Absolute Auto 0.34 K/mm3 (0.9-3.2); Lymphocytes Percent Auto 2.9 % (18.3-44.2); Mean Corpuscular Hemoglobin 26.3 pg (26-34); Mean Corpuscular Volume 90.9 fl (80-100); Mean Platelet Volume 9.6 fl (7.4-10.4); Monocytes Percent Auto 8.8 % (2.6-8.5); Neutrophils Absolute Auto 10.1 K/mm3 (1.3-6.7); Neutrophils Percent Auto 85.3 % (45.5-73.1); Platelet Count Result 247 k/mm3 (150-375); Red Blood Count 3.19 M/mm3 (4.6-6.20); Red Cell Distribution Width 15.9 % (11.5-14.5); White Blood Count 11.9 K/mm3 (4.5-10.0)
[2024-08-27 06:42] LABS: Alanine Aminotransferase 7 U/L (6-50); Albumin Level 2.8 g/dL (3.5-5.1); Alkaline Phosphatase 43 U/L (38-126); Anion Gap 4 mmol/L (4-12); Aspartate Amino Transferase 20 U/L (17-59); Bilirubin,Total 0.6 mg/dL (0.2-1.3); Blood Urea Nitrogen 53 mg/dL (9-20); Calcium 8.9 mg/dL (8.4-10.2); Carbon Dioxide 36 mmol/L (22-30); Chloride 95 mmol/L (98-107); Estimated CRCL calculation 52 ml/min; Estimated Glomerular Filt Rate 38; Glucose 95 mg/dL (65-110); Potassium 3.5 mmol/L (3.4-5.0); Sodium 135 mmol/L (137-145)
[2024-08-27 07:30] LABS: Anisocytosis 1+; Hypochromasia 1+; Platelet Estimate Adequate (Adequate)
[2024-08-27 07:31] LABS: Stomatocytes 1+
[2024-08-27] MEDS: METOPROLOL TARTRATE 50 MG TAB PO ×2 (08:57→20:39)
[2024-08-27] MEDS: LORATADINE 10 MG TABLET PO (08:57)
[2024-08-27] MEDS: FAMOTIDINE 20 MG TABLET PO ×2 (08:57→17:08)
[2024-08-27] MEDS: metOLazone 5 MG TABLET PO (08:57)
[2024-08-27] MEDS: GABAPENTIN 300 MG CAPSULE PO ×2 (08:58→13:50)
[2024-08-27] MEDS: ACETAMINOPHEN 325 MG TABLET 650 MG PO (08:58)
[2024-08-27] MEDS: allopurinoL 100 MG TABLET PO (08:58)
[2024-08-27] MEDS: minoxidiL 2.5 MG TABLET PO (08:58)
[2024-08-27] MEDS: TAMSULOSIN HCL 0.4 MG CAPSULE PO (08:58)
[2024-08-27] MEDS: SPIRONOLACTONE 25 MG TABLET PO (08:58)
[2024-08-27] MEDS: VANCOMYCIN 1,000 MG/NS 250 ML 1,000 MG/250 ML BAG 250 MG IVPB (08:59)
[2024-08-27] MEDS: ENOXAPARIN 40 MG/0.4 ML SYRINGE SUB-Q (08:59)
[2024-08-27] MEDS: EUCERIN CREAM 454 GM JAR 1 APPLIC TOPICAL ×2 (08:59→17:09)
[2024-08-27] MEDS: FLUTICASONE PROPIONATE 0.05% NA SPR 16 GM BTL (*BKC) 1 SPRAY NASAL (08:59)
--- NOTE | 2024-08-27 09:06 | PM.IMPN ---
Progress Note: A&P Assessment and Plan (1) Venous stasis ulcer of right foot: Code(s): I83.015 - Varicose veins of right lower extremity with ulcer other part of foot Status: Acute Assessment and Plan: - ankle XR: Lucency over the right lateral malleolus. Follow-up advised. 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 - tib fib XR: No definite acute osseous abnormality right leg. Lucencies in the area of the medial and lateral malleoli which may be summation shadows. Clinical correlation and follow-up advised.. - foot XR: Extensive soft tissue swelling. No definite evidence for osteomyelitis. - started on Levaquin and Flagyl on 08/20/2024. Reviewed micro and patient has history of Pseudomonas and Staph with multiple resistances in March of 2024. Previously placed on meropenem after case was reviewed with ID pharmacist during the patient's most recent admission in May of 2024. Will place patient back on meropenem as well as vancomycin and obtain wound culture. - wound RN consulted. Recommendations: daily cleanse right lower leg and foot by the 5th toe, apply antifungal powder to open weeping maceration areas. place ABD pads and roll gauze cover if patient allows, if not place nito pads under and over foot and leg to control exudate and change daily and PRN if heavily soiled. -Surgery consulted, plan for a below-knee amputation of the right leg, added to surgery schedule for 08/25. HOLD Eliquis. DVT prophylaxis Lovenox 40 mg subq daily. -Blood cultures no growth to date. -Right BKA performed 08/25, plan for pain control -Surgery following, per note today: Right BKA dressing changed today. Incision and flap are healing well. Continue ramone wrap for compression and daily dressing changes. Continue knee immobilizer Okay to stop antibiotics from our standpoint Okay to resume anticoagulation tomorrow from a surgical standpoint -->Ordered for apixaban restart 5/30 AM, D/C Lovenox after last dose this evening -->Surgery added on low dose ibuprofen to see if would help with pain as well -->Increased gabapentin 300 TID to 400 TID to see if this also helps with pain, will continue to trend kidney levels daily with these medications (2) Peripheral vascular disease: Code(s): I73.9 - Peripheral vascular disease, unspecified Status: Acute Assessment and Plan: - follows with Chris DE LEON with vascular surgery. Reportedly told at most recent visit on XX that there were no further interventions to increased blood flow to his affected extremity as the disease is below the knee. (3) CHF (congestive heart failure): Qualifiers: Heart failure chronicity: chronic Heart failure type: diastolic Qualified Code(s): I50.32 - Chronic diastolic (congestive) heart failure Code(s): I50.9 - Heart failure, unspecified Status: Chronic Assessment and Plan: - echo, previous: Estimated EF 65-70%, grade 1 diastolic dysfunction. Technically difficult echo. See report for details. - continue home medications: Bumex (adjusting administration times to help patient get improved sleep), metolazone, spironolactone. Hold Diamox, contraindicated in CKD stage 4. - monitor I&Os daily weights, 148.4kg today (4) Atrial fibrillation: Qualifiers: Atrial fibrillation type: longstanding persistent Qualified Code(s): I48.11 - Longstanding persistent atrial fibrillation Code(s): I48.91 - Unspecified atrial fibrillation Status: Chronic Assessment and Plan: - continue home medications: Eliquis and Metoprolol. - Eliquis to restart 5/30 am - Last dose of Lovenox 40 mg subq this PM (5) Chronic anemia: Code(s): D64.9 - Anemia, unspecified Status: Acute Assessment and Plan: - Hgb 8.4, previously 8.4 on 05/19/2024. At baseline. - Transfuse if <7. - Continue with daily labs (6) CKD (chronic kidney disease) stage 3, GFR 30-59 ml/min: Qualifiers: Chronic kidney disease stage 3 subtype: stage 3b (GFR 30-44) Qualified Code(s): N18.32 - Chronic kidney disease, stage 3b Code(s): N18.3 - Chronic kidney disease, stage 3 (moderate) Status: Acute Assessment and Plan: - creatinine 1.74 and GFR 38, previously 2.23 and GFR 29 on 05/19/2024 - trend renal function - trend electrolytes, correct as needed (7) Essential (primary) hypertension: Code(s): I10 - Essential (primary) hypertension Status: Chronic Assessment and Plan: - chronic, currently 131/56 - continue home medications: Metoprolol - Continue to monitor (8) AMELIA (obstructive sleep apnea): Code(s): G47.33 - Obstructive sleep apnea (adult) (pediatric) Status: Acute Assessment and Plan: - continue home CPAP Plan Diet: Heart healthy, chocolate ensure GI Prophylaxis: Not currently indicated DVT Prophylaxis: Lovenox until this PM, eliquis re-start 5/30 AM IV fluids: None Lines/Tubes: Peripheral IV Code Status: Full code Subjective Date/time seen: 08/27/24 09:06 Interval history: Pt presented to the ED on 08/20 for chronic (3 yrs) R foot wound with increased erythema, edema, and malodorous smell x 1 week. Hx of PVD, gout, chronic lymphedema of the BLE, chronic anemia, AMELIA, AFib, rosacea, GERD, CHF, dyslipidemia, hypertension, peripheral polyneuropathy, and hypothyroidism. Pt sees outpt vasc at [facility] (Dr. Daniels) with no plans for procedure to increase vacular flow to leg. Recent admission here for similar sx in May 2024 and was D/C with wound care daily. ED workup showed: No leukocytosis, hemoglobin 9.5 (at baseline), sodium 133 (at baseline), creatinine 2.48 and GFR 26 (previously 2.23 and GFR 29 on 05/19/2024). Ankle XR showed a lucency over the right lateral malleolus and osteoarthritic changes the ankle and subtalar joints. Tib/fib XR showed no definite acute osseous abnormality of the right leg and lipases in the area of the medial and lateral malleoli which may be summation shadows. Foot XR showed extensive soft tissue swelling and no definite evidence of osteomyelitis. R BKA was ultimately performed on 08/26 via surgery. Today when assessed, pt in a moderate amount of pain to his RLE but assessed him after surgery performed dressing change. Surgical team and this proposal writer discussed with the pt the importance of trailing his oral pain medication. He states that his nephew called and told him that he has oxycodone and hydrocodone at home and he thinks that he has tolerated those in the past, oxy ordered by surgery. Updated pt that he would likely be D/C to a rehab and he would have to take something PO there for pain. Pt states that something has worked in the past that is PO but cannot remember the name. Pt denies SOB, CP, or any other sx today. Review of Systems Review of Systems: All systems reviewed & are unremarkable except as noted in HPI and below Exam Const: General: no acute distress and uncomfortable Other: , male, obese body habitus, nontoxic appearance HENMT: Face/Nose/Sinus: Normal nares present Mouth: Yes moist mucous membranes Other: tachy mucus membranes Eyes: General: appearance normal, both eyes and all related structures Sclera: sclerae normal Neck: Neck: supple and no JVD Carotids: no bruits Resp: Effort & Inspection: normal respiratory effort Auscultation: clear to auscultation bilaterally Other: Speaking in complete sentences. Cardio: Rate: regular rate Rhythm: regular rhythm Other: S1-S2 present without murmur, rub, ectopy GI: Auscultation: normal bowel sounds Other: Abdomen soft, nondistended, nontender. Normoactive bowel sounds in all quadrants. Skin: General skin exam: normal color Other: RLE BKA ramone wrap dressing C/D/I with knee immobilizer applied Neuro: Cranial nerves: Yes Equal, round and reactive pupils present Speech: normal speech Motor exam (neuro): Normal motor muscle tone present throughout Other: A&O x4 Extrem: Other: LLE with chronic lymphedema and venous stasis dermatitis. See skin. Psych: Mental Status: mental status grossly normal Affect: normal affect Other: Good insight and judgment, very pleasant Objective Data Vital Signs Vital Signs: Vital Signs - 24 hr 08/26/24 12:00 08/26/24 20:00 08/26/24 20:37 Temperature 98.0 F Pulse Rate 89 74 Respiratory Rate 18 Blood Pressure 136/58 L Pulse Oximetry 99 Oxygen Delivery Room Air Oxygen Flow Rate 08/26/24 22:01 08/26/24 22:20 08/26/24 22:20 Temperature 98.8 F Pulse Rate 74 66 66 Respiratory Rate 18 Blood Pressure 135/41 L Pulse Oximetry 98 100 100 Oxygen Delivery CPAP CPAP Oxygen Flow Rate 4 08/27/24 01:55 08/27/24 02:20 08/27/24 06:00 Temperature 98.8 F 98.8 F Pulse Rate 76 69 63 Respiratory Rate 18 18 Blood Pressure 101/48 L 129/58 L Pulse Oximetry 98 99 97 Oxygen Delivery CPAP Oxygen Flow Rate Intake/Output Intake/Output: Intake & Output 08/24/24 08/25/24 08/26/24 08/27/24 23:59 23:59 23:59 23:59 Intake Total 2570 750 4065 604 Output Total 4400 2900 3325 1800 Balance -1830 -2150 740 -1196 Meds/Results Medications: Active Medications Generic Name Dose Route Start Last Admin Trade Name Freq PRN Reason Stop Dose Admin Acetaminophen 650 mg 08/20/24 16:16 08/26/24 20:35 Acetaminophen 325 Mg Tablet PO 650 mg Q4H PRN Administration Mild Pain (1-3) or Fever Allopurinol 100 mg 08/21/24 09:00 08/26/24 08:54 Allopurinol 100 Mg Tablet PO 100 mg DAILY ANGELA Administration Apixaban 5 mg 08/20/24 22:05 08/21/24 08:55 Apixaban 5 Mg Tablet PO 5 mg Q12HR ANGELA Administration Bumetanide 1 mg 08/23/24 14:00 08/27/24 06:03 Bumetanide 1 Mg Tablet PO 1 mg TID@0600,1000,1400 ANGELA Administration Calcitriol 0.25 mcg 08/21/24 09:00 08/26/24 08:54 Calcitriol 0.25 Mcg Capsule PO 0.25 mcg MoWeFr@0900 ANGELA Administration Docusate Sodium 100 mg 08/20/24 21:47 Docusate Sodium 100 Mg Capsule PO Q12H PRN constipation Enoxaparin Sodium 40 mg 08/22/24 10:30 08/26/24 08:54 Enoxaparin 40 Mg/0.4 Ml Syringe SUB-Q 40 mg DAILY ANGELA Administration Famotidine 20 mg 08/20/24 22:05 08/26/24 17:23 Famotidine 20 Mg Tablet PO 20 mg BID ANGELA Administration Fluticasone Propionate 1 spray 08/21/24 09:00 08/26/24 08:54 Fluticasone Propionate 0.05% Na Spr 16 Gm Btl (*Bkc) NASAL 1 spray DAILY ANGELA Administration Gabapentin 300 mg 08/20/24 22:05 08/26/24 17:23 Gabapentin 300 Mg Capsule PO 300 mg TID ANGELA Administration Hydromorphone HCl 1 mg 08/25/24 16:16 08/27/24 04:05 Hydromorphone Hcl Inj (*Crx) 2 Mg/Ml Vial IV PUSH 1 mg Q2H PRN Administration Breakthrough Pain Rated 7-10 or NPO Hydromorphone HCl 0.5 mg 08/25/24 16:17 Hydromorphone Hcl Inj (*Crx) 2 Mg/Ml Vial IV PUSH Q2H PRN Breakthrough Pain Rated 4-6 or NPO Ibuprofen 400 mg/ Sodium 104 mls @ 208 mls/hr 08/26/24 15:46 08/27/24 03:47 Chloride IVPB Infused Q6H PRN Infusion Breakthrough Pain Levothyroxine Sodium 200 mcg 08/21/24 06:30 08/27/24 06:03 Levothyroxine Sodium 100 Mcg Tablet PO 200 mcg DAILY@0630 ANGELA Administration Loratadine 10 mg 08/22/24 10:05 08/26/24 08:54 Loratadine 10 Mg Tablet PO 10 mg DAILY ANGELA Administration Metolazone 5 mg 08/21/24 09:00 08/26/24 08:54 Metolazone 5 Mg Tablet PO 5 mg DAILY ANGELA Administration Metoprolol Tartrate 50 mg 08/20/24 22:05 08/26/24 20:37 Metoprolol Tartrate 50 Mg Tab PO 50 mg Q12HR ANGELA Administration Minoxidil 2.5 mg 08/21/24 09:00 08/26/24 08:54 Minoxidil 2.5 Mg Tablet PO 2.5 mg DAILY ANGELA Administration Multi-Ingred Cream/Lotion/Oil/Oint 1 applic 08/21/24 09:00 08/26/24 17:23 Eucerin Cream 454 Gm Jar TOPICAL 1 applic BID ANGELA Administration Naloxone HCl 0.1 mg 08/25/24 16:14 Naloxone Hcl 0.4 Mg/Ml Vial IV PUSH Q2M PRN Opiate Reversal Oxycodone/Acetaminophen 1 tablet 08/25/24 16:14 Oxycodone/Acetaminophen (*Crx) 5-325 Mg Tablet PO Q4H PRN Pain Rated 4-6 Oxycodone/Acetaminophen 1 tab 08/25/24 16:14 Oxycodone/Acetaminophen (*Crx) 10-325 Mg Tablet PO Q6H PRN Pain Rated 7-10 Polyethylene Glycol 17 gm 08/22/24 10:05 08/26/24 09:00 Polyethylene Glycol 3350 17 Gm Powd.Pack PO Not Given DAILY ANGELA Potassium Chloride 10 meq 08/20/24 22:04 Potassium Chloride 10 Meq Er Tablet PO DAILY PRN leg cramping Promethazine HCl 12.5 mg 08/20/24 16:16 Promethazine Hcl 25 Mg/Ml Ampul IV PUSH Q6H PRN Nausea Spironolactone 25 mg 08/21/24 09:00 08/26/24 08:53 Spironolactone 25 Mg Tablet PO 25 mg DAILY ANGELA Administration Tamsulosin HCl 0.4 mg 08/21/24 09:00 08/26/24 08:54 Tamsulosin Hcl 0.4 Mg Capsule PO 0.4 mg QAM ANGELA Administration Radiology Results: ITS Impressions Ankle X-Ray 08/20/24 12:55 IMPRESSION: Lucency over the right lateral malleolus. Follow-up advised. 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 Tibia/Fibula X-Ray 08/20/24 13:03 IMPRESSION: No definite acute osseous abnormality right leg. Lucencies in the area of the medial and lateral malleoli which may be summation shadows. Clinical correlation and follow-up advised.. Foot X-Ray 08/20/24 13:07 Impression: Extensive soft tissue swelling. No definite evidence for osteomyelitis. Labs Labs: Laboratory Results - last 24 hr 08/27/24 08/27/24 08/27/24 00:38 04:08 06:24 WBC 11.9 H RBC 3.19 L Hgb 8.4 L Hct 29.0 L MCV 90.9 MCH 26.3 MCHC 29.0 L RDW 15.9 H Plt Count 247 MPV 9.6 Immature Gran % (Auto) 0.6 H Neut % (Auto) 85.3 H Lymph % (Auto) 2.9 L [place] % (Auto) 8.8 H Eos % (Auto) 2.1 Baso % (Auto) 0.3 Lymph # (Auto) 0.34 L [place] # (Auto) 1.0 H Eos # (Auto) 0.3 Baso # (Auto) 0.0 Abs Immat Gran (auto) 0.07 H Absolute Neuts (auto) 10.1 H Absolute Nucleated RBC 0.000 Band Neutrophils % Not Reportable Nucleated RBC % 0.0 Platelet Estimate Adequate Hypochromasia 1+ Anisocytosis 1+ Stomatocytes 1+ Schistocytes Not Reportable Sodium 135 L Potassium 3.5 Chloride 95 L Carbon Dioxide 36 H Anion Gap 4 BUN 53 H Creatinine 1.74 H Estim Creat Clear Calc 52 Estimated GFR 38 L Glucose 95 Calcium 8.9 Magnesium 2.0 Total Bilirubin 0.6 AST 20 ALT 7 Alkaline Phosphatase 43 Total Protein 5.0 L Albumin 2.8 L Nasal MRSA (PCR) Detected A* Vancomycin Trough 23.1 H Quality VTE Prophylaxis VTE prophylaxis: pharmacologic ordered
--- NOTE | 2024-08-27 11:48 | PM.PNGS ---
Progress Note: A&P Assessment and Plan (1) Cellulitis of right foot: Code(s): L03.115 - Cellulitis of right lower limb Status: Acute Assessment and Plan: Right BKA dressing changed today. Incision and flap are healing well. Continue ramone wrap for compression and daily dressing changes. Continue knee immobilizer Okay to stop antibiotics from our standpoint (2) Venous stasis ulcer of right foot: Code(s): I83.015 - Varicose veins of right lower extremity with ulcer other part of foot Status: Acute (3) Lymphedema of both lower extremities: Code(s): I89.0 - Lymphedema, not elsewhere classified Status: Acute (4) Atrial fibrillation: Qualifiers: Atrial fibrillation type: longstanding persistent Qualified Code(s): I48.11 - Longstanding persistent atrial fibrillation Code(s): I48.91 - Unspecified atrial fibrillation Status: Chronic Assessment and Plan: Okay to resume anticoagulation tomorrow from a surgical standpoint Plan I have discussed the patient's case and plan of care with Dr. Malone Subjective Subjective Date/Time Seen: 08/27/24 11:48 Post Op day: 2 (Right BKA) Interval history: Patient still using Dilaudid and IV Ibuprofen for pain, which was better controlled overnight. He did not try the Percocet yet. He is willing to try pain pills today. He had both oxycodone and hydrocodone at home, and cannot recall which one he was able to tolerate. Denies any nausea or vomiting, but still not having much of an appetite since surgery. Exam Const: General: comfortable and no acute distress Extrem: Other: Right BKA dressing removed. Incision with moderate serosanguineous drainage on dressing, and both kristie and sutures intact, moderate amount of diffuse edema of the stump with a small area of skin separation in the middle of the incision. There is a small 1 cm area of dark skin that looks slightly ischemic at the right side of the incision, otherwise skin and the posterior flap appears healthy and viable. New dressing and ramone wrap applied, and then knee immobilizer was put back in place. Objective Data Vital Signs Vital Signs: Vital Signs - 24 hr 08/26/24 12:00 08/26/24 20:00 08/26/24 20:37 Temperature 98.0 F Pulse Rate 89 74 Respiratory Rate 18 Blood Pressure 136/58 L Pulse Oximetry 99 Oxygen Delivery Room Air Oxygen Flow Rate 08/26/24 22:01 08/26/24 22:20 08/26/24 22:20 Temperature 98.8 F Pulse Rate 74 66 66 Respiratory Rate 18 Blood Pressure 135/41 L Pulse Oximetry 98 100 100 Oxygen Delivery CPAP CPAP Oxygen Flow Rate 4 08/27/24 01:55 08/27/24 02:20 08/27/24 06:00 Temperature 98.8 F 98.8 F Pulse Rate 76 69 63 Respiratory Rate 18 18 Blood Pressure 101/48 L 129/58 L Pulse Oximetry 98 99 97 Oxygen Delivery CPAP Oxygen Flow Rate 08/27/24 08:00 08/27/24 08:57 08/27/24 09:15 Temperature 98.2 F Pulse Rate 75 68 Respiratory Rate 18 Blood Pressure 131/56 L Pulse Oximetry 96 Oxygen Delivery Room Air Oxygen Flow Rate Intake/Output Intake/Output: Intake & Output 08/24/24 08/25/24 08/26/24 08/27/24 23:59 23:59 23:59 23:59 Intake Total 2570 750 4065 1091 Output Total 4400 2900 3325 1800 Balance -1830 -2150 700 -447 Meds/Results Medications: Active Medications Generic Name Dose Route Start Last Admin Trade Name Freq PRN Reason Stop Dose Admin Acetaminophen 650 mg 08/20/24 16:16 08/27/24 08:58 Acetaminophen 325 Mg Tablet PO 650 mg Q4H PRN Administration Mild Pain (1-3) or Fever Allopurinol 100 mg 08/21/24 09:00 08/27/24 08:58 Allopurinol 100 Mg Tablet PO 100 mg DAILY ANGELA Administration Apixaban 5 mg 08/20/24 22:05 08/21/24 08:55 Apixaban 5 Mg Tablet PO 5 mg Q12HR ANGELA Administration Bumetanide 1 mg 08/23/24 14:00 08/27/24 09:00 Bumetanide 1 Mg Tablet PO 1 mg TID@0600,1000,1400 ANGELA Administration Calcitriol 0.25 mcg 08/21/24 09:00 08/26/24 08:54 Calcitriol 0.25 Mcg Capsule PO 0.25 mcg MoWeFr@0900 ANGELA Administration Docusate Sodium 100 mg 08/20/24 21:47 Docusate Sodium 100 Mg Capsule PO Q12H PRN constipation Enoxaparin Sodium 40 mg 08/22/24 10:30 08/27/24 08:59 Enoxaparin 40 Mg/0.4 Ml Syringe SUB-Q 40 mg DAILY ANGELA Administration Famotidine 20 mg 08/20/24 22:05 08/27/24 08:57 Famotidine 20 Mg Tablet PO 20 mg BID ANGELA Administration Fluticasone Propionate 1 spray 08/21/24 09:00 08/27/24 08:59 Fluticasone Propionate 0.05% Na Spr 16 Gm Btl (*Bkc) NASAL 1 spray DAILY ANGELA Administration Gabapentin 300 mg 08/20/24 22:05 08/27/24 08:58 Gabapentin 300 Mg Capsule PO 300 mg TID ANGELA Administration Hydromorphone HCl 1 mg 08/25/24 16:16 08/27/24 08:58 Hydromorphone Hcl Inj (*Crx) 2 Mg/Ml Vial IV PUSH 1 mg Q2H PRN Administration Breakthrough Pain Rated 7-10 or NPO Hydromorphone HCl 0.5 mg 08/25/24 16:17 Hydromorphone Hcl Inj (*Crx) 2 Mg/Ml Vial IV PUSH Q2H PRN Breakthrough Pain Rated 4-6 or NPO Ibuprofen 400 mg/ Sodium 104 mls @ 208 mls/hr 08/26/24 15:46 08/27/24 03:47 Chloride IVPB Infused Q6H PRN Infusion Breakthrough Pain Levothyroxine Sodium 200 mcg 08/21/24 06:30 08/27/24 06:03 Levothyroxine Sodium 100 Mcg Tablet PO 200 mcg DAILY@0630 ANGELA Administration Loratadine 10 mg 08/22/24 10:05 08/27/24 08:57 Loratadine 10 Mg Tablet PO 10 mg DAILY ANGELA Administration Metolazone 5 mg 08/21/24 09:00 08/27/24 08:57 Metolazone 5 Mg Tablet PO 5 mg DAILY ANGELA Administration Metoprolol Tartrate 50 mg 08/20/24 22:05 08/27/24 08:57 Metoprolol Tartrate 50 Mg Tab PO 50 mg Q12HR ANGELA Administration Minoxidil 2.5 mg 08/21/24 09:00 08/27/24 08:58 Minoxidil 2.5 Mg Tablet PO 2.5 mg DAILY ANGELA Administration Multi-Ingred Cream/Lotion/Oil/Oint 1 applic 08/21/24 09:00 08/27/24 08:59 Eucerin Cream 454 Gm Jar TOPICAL 1 applic BID ANGELA Administration Naloxone HCl 0.1 mg 08/25/24 16:14 Naloxone Hcl 0.4 Mg/Ml Vial IV PUSH Q2M PRN Opiate Reversal Oxycodone/Acetaminophen 1 tablet 08/25/24 16:14 Oxycodone/Acetaminophen (*Crx) 5-325 Mg Tablet PO Q4H PRN Pain Rated 4-6 Oxycodone/Acetaminophen 1 tab 08/25/24 16:14 Oxycodone/Acetaminophen (*Crx) 10-325 Mg Tablet PO Q6H PRN Pain Rated 7-10 Polyethylene Glycol 17 gm 08/22/24 10:05 08/27/24 08:59 Polyethylene Glycol 3350 17 Gm Powd.Pack PO Not Given DAILY [facility] Potassium Chloride 10 meq 08/20/24 22:04 Potassium Chloride 10 Meq Er Tablet PO DAILY PRN leg cramping Promethazine HCl 12.5 mg 08/20/24 16:16 Promethazine Hcl 25 Mg/Ml Ampul IV PUSH Q6H PRN Nausea Spironolactone 25 mg 08/21/24 09:00 08/27/24 08:58 Spironolactone 25 Mg Tablet PO 25 mg DAILY ANGELA Administration Tamsulosin HCl 0.4 mg 08/21/24 09:00 08/27/24 08:58 Tamsulosin Hcl 0.4 Mg Capsule PO 0.4 mg QAM ANGELA Administration Radiology Results: ITS Impressions Ankle X-Ray 08/20/24 12:55 IMPRESSION: Lucency over the right lateral malleolus. Follow-up advised. 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 Tibia/Fibula X-Ray 08/20/24 13:03 IMPRESSION: No definite acute osseous abnormality right leg. Lucencies in the area of the medial and lateral malleoli which may be summation shadows. Clinical correlation and follow-up advised.. Foot X-Ray 08/20/24 13:07 Impression: Extensive soft tissue swelling. No definite evidence for osteomyelitis. Labs Labs: Laboratory Results - last 24 hr 08/27/24 08/27/24 08/27/24 00:38 04:08 06:24 WBC 11.9 H RBC 3.19 L Hgb 8.4 L Hct 29.0 L MCV 90.9 MCH 26.3 MCHC 29.0 L RDW 15.9 H Plt Count 247 MPV 9.6 Immature Gran % (Auto) 0.6 H Neut % (Auto) 85.3 H Lymph % (Auto) 2.9 L [place] % (Auto) 8.8 H Eos % (Auto) 2.1 Baso % (Auto) 0.3 Lymph # (Auto) 0.34 L [place] # (Auto) 1.0 H Eos # (Auto) 0.3 Baso # (Auto) 0.0 Abs Immat Gran (auto) 0.07 H Absolute Neuts (auto) 10.1 H Absolute Nucleated RBC 0.000 Band Neutrophils % Not Reportable Nucleated RBC % 0.0 Platelet Estimate Adequate Hypochromasia 1+ Anisocytosis 1+ Stomatocytes 1+ Schistocytes Not Reportable Sodium 135 L Potassium 3.5 Chloride 95 L Carbon Dioxide 36 H Anion Gap 4 BUN 53 H Creatinine 1.74 H Estim Creat Clear Calc 52 Estimated GFR 38 L Glucose 95 Calcium 8.9 Magnesium 2.0 Total Bilirubin 0.6 AST 20 ALT 7 Alkaline Phosphatase 43 Total Protein 5.0 L Albumin 2.8 L Nasal MRSA (PCR) Detected A* Vancomycin Trough 23.1 H
[2024-08-27] MEDS: oxyCODONE/ACETAMINOPHEN (*CRX) 10-325 MG TABLET 1 TAB PO (13:50)
[2024-08-27] MEDS: ONDANSETRON INJ 4 MG/2 ML VIAL IV PUSH (17:08)
[2024-08-27] MEDS: GABAPENTIN 400 MG CAPSULE PO (17:08)
[2024-08-27] MEDS: HYDROmorphone HCL INJ (*CRX) 2 MG/ML VIAL 0.5 MG IV PUSH (17:09)
[2024-08-27] MEDS: MUPIROCIN 2% OINT 22 GM TUBE 1 APPLIC EACH NARE (20:41)
[2024-08-27] MEDS: oxyCODONE/ACETAMINOPHEN (*CRX) 5-325 MG TABLET 1 TABLET PO (20:41)
[2024-08-28] VITALS (7 sets, daily range): BP systolic 106–126; BP diastolic 58–74; PULSE 81–85; RESP 18; TEMP 36.4–37.6; O2SAT 94–100; BMI 43.4
[2024-08-28] MEDS: HYDROmorphone HCL INJ (*CRX) 2 MG/ML VIAL 0.5 MG IV PUSH (03:17)
[2024-08-28 05:33] LABS: Basophils Absolute Auto 0.1 K/mm3 (0.0-0.1); Basophils Percent Auto 0.5 % (0.2-1.2); Eosinophils Absolute Auto 0.3 K/mm3 (0-0.3); Eosinophils Percent Auto 2.1 % (0-4.4); Hematocrit 29.5 % (42.0-52.0); Hemoglobin 8.3 g/dL (14.0-18.0); Immature Granulocyte Absolute 0.09 K/mm3 (0.00-0.031); Immature Granulocyte Percent A 0.7 % (0-0.5); Lymphocytes Absolute Auto 0.39 K/mm3 (0.9-3.2); Lymphocytes Percent Auto 3.2 % (18.3-44.2); Mean Corpuscular HGB Conc 28.1 g/dl (32-36); Mean Corpuscular Hemoglobin 25.6 pg (26-34); Mean Platelet Volume 10.3 fl (7.4-10.4); Monocytes Absolute Auto 1.1 K/mm3 (0.1-0.6); Monocytes Percent Auto 8.6 % (2.6-8.5); Neutrophils Absolute Auto 10.4 K/mm3 (1.3-6.7); Neutrophils Percent Auto 84.9 % (45.5-73.1); Platelet Count Result 264 k/mm3 (150-375); Red Blood Count 3.24 M/mm3 (4.6-6.20); Red Cell Distribution Width 15.6 % (11.5-14.5); White Blood Count 12.3 K/mm3 (4.5-10.0)
[2024-08-28 05:59] LABS: Band Neutrophils Percent 0 % (0-6); Ovalocytes 1+; Platelet Estimate Adequate (Adequate); Schistocytes None Seen; Tear Drop Cells 1+
[2024-08-28] MEDS: BUMETANIDE 1 MG TABLET PO ×3 (06:45→14:44)
[2024-08-28] MEDS: LEVOTHYROXINE SODIUM 100 MCG TABLET 200 MCG PO (06:45)
[2024-08-28 07:48] LABS: Alanine Aminotransferase 8 U/L (6-50); Albumin Level 2.5 g/dL (3.5-5.1); Alkaline Phosphatase 50 U/L (38-126); Anion Gap 2 mmol/L (4-12); Aspartate Amino Transferase 26 U/L (17-59); Bilirubin,Total 0.4 mg/dL (0.2-1.3); Blood Urea Nitrogen 60 mg/dL (9-20); Calcium 8.8 mg/dL (8.4-10.2); Carbon Dioxide 38 mmol/L (22-30); Chloride 93 mmol/L (98-107); Estimated CRCL calculation 54 ml/min; Estimated Glomerular Filt Rate 42; Glucose 101 mg/dL (65-110); Magnesium 1.9 mg/dL (1.6-2.3); Potassium 3.7 mmol/L (3.4-5.0); Sodium 133 mmol/L (137-145)
[2024-08-28] MEDS: TAMSULOSIN HCL 0.4 MG CAPSULE PO (09:19)
[2024-08-28] MEDS: oxyCODONE/ACETAMINOPHEN (*CRX) 10-325 MG TABLET 1 TAB PO ×2 (09:19→20:44)
[2024-08-28] MEDS: GABAPENTIN 400 MG CAPSULE PO ×3 (09:19→17:31)
[2024-08-28] MEDS: FAMOTIDINE 20 MG TABLET PO ×2 (09:19→17:31)
[2024-08-28] MEDS: allopurinoL 100 MG TABLET PO (09:19)
[2024-08-28] MEDS: LORATADINE 10 MG TABLET PO (09:19)
[2024-08-28] MEDS: minoxidiL 2.5 MG TABLET PO (09:19)
[2024-08-28] MEDS: METOPROLOL TARTRATE 50 MG TAB PO ×2 (09:19→20:44)
[2024-08-28] MEDS: metOLazone 5 MG TABLET PO (09:20)
[2024-08-28] MEDS: FLUTICASONE PROPIONATE 0.05% NA SPR 16 GM BTL (*BKC) 1 SPRAY NASAL (09:20)
[2024-08-28] MEDS: EUCERIN CREAM 454 GM JAR 1 APPLIC TOPICAL ×2 (09:20→17:31)
[2024-08-28] MEDS: polyethylene glycoL 3350 17 GM POWD.PACK PO (09:20)
[2024-08-28] MEDS: SPIRONOLACTONE 25 MG TABLET PO (09:20)
[2024-08-28] MEDS: calcitrioL 0.25 MCG CAPSULE PO (09:20)
[2024-08-28] MEDS: MUPIROCIN 2% OINT 22 GM TUBE 1 APPLIC EACH NARE ×2 (09:21→20:45)
[2024-08-28] MEDS: APIXABAN 5 MG TABLET PO ×2 (09:25→20:44)
[2024-08-28] MEDS: IBUPROFEN IV 400 MG in SODIUM CHLORIDE 0.9% IV 100 ML 208 MG IVPB (11:59)
[2024-08-28] MEDS: ACETAMINOPHEN 325 MG TABLET 650 MG PO ×2 (11:59→17:31)
--- NOTE | 2024-08-28 12:07 | P.PNGS_ITS ---
Progress Note: A&P Assessment and Plan (1) Cellulitis of right foot: Code(s): L03.115 - Cellulitis of right lower limb Status: Acute Assessment and Plan: * Continue ramone wrap for compression and daily dressing changes. * Continue knee immobilizer * Okay to stop antibiotics from our standpoint * OK to resume Eliquis (2) Venous stasis ulcer of right foot: Code(s): I83.015 - Varicose veins of right lower extremity with ulcer other part of foot Status: Acute (3) Lymphedema of both lower extremities: Code(s): I89.0 - Lymphedema, not elsewhere classified Status: Acute (4) Atrial fibrillation: Qualifiers: Atrial fibrillation type: longstanding persistent Qualified Code(s): I48.11 - Longstanding persistent atrial fibrillation Code(s): I48.91 - Unspecified atrial fibrillation Status: Chronic Assessment and Plan: * Okay to resume anticoagulation Subjective Subjective Date/Time Seen: 08/28/24 12:07 Interval history: Still having a lot of pain at BKA site. Trying to manage without oral pain meds secondary to nausea/vomiting. Exam Extrem: Other: Right BKA incision intact. No significant bleeding. Objective Data Vital Signs Vital Signs: Vital Signs - 24 hr 08/27/24 20:00 08/27/24 20:39 08/27/24 20:41 Temperature 99.5 F Pulse Rate 81 91 Respiratory Rate 16 Blood Pressure 126/61 Pulse Oximetry 95 Oxygen Delivery Room Air Oxygen Flow Rate 08/27/24 23:50 08/27/24 23:50 08/28/24 00:45 Temperature 99.7 F H Pulse Rate 88 83 Respiratory Rate 18 Blood Pressure 126/58 L Pulse Oximetry 95 95 98 Oxygen Delivery CPAP CPAP Oxygen Flow Rate 4 08/28/24 04:35 08/28/24 09:19 08/28/24 09:20 Temperature Pulse Rate 85 85 Respiratory Rate Blood Pressure Pulse Oximetry 95 Oxygen Delivery CPAP Room Air Oxygen Flow Rate Intake/Output Intake/Output: Intake & Output 08/25/24 08/26/24 08/27/24 08/28/24 23:59 23:59 23:59 23:59 Intake Total 750 4065 3785 2083 Output Total 2900 3325 4000 2400 Balance -2150 740 -215 -208 Meds/Results Medications: Active Medications Generic Name Dose Route Start Last Admin Trade Name Freq PRN Reason Stop Dose Admin Acetaminophen 650 mg 08/20/24 16:16 08/28/24 11:59 Acetaminophen 325 Mg Tablet PO 650 mg Q4H PRN Administration Mild Pain (1-3) or Fever Allopurinol 100 mg 08/21/24 09:00 08/28/24 09:19 Allopurinol 100 Mg Tablet PO 100 mg DAILY ANGELA Administration Apixaban 5 mg 08/20/24 22:05 08/28/24 09:25 Apixaban 5 Mg Tablet PO 5 mg Q12HR ANGELA Administration Bumetanide 1 mg 08/23/24 14:00 08/28/24 09:19 Bumetanide 1 Mg Tablet PO 1 mg TID@0600,1000,1400 ANGELA Administration Calcitriol 0.25 mcg 08/21/24 09:00 08/28/24 09:20 Calcitriol 0.25 Mcg Capsule PO 0.25 mcg MoWeFr@0900 ANGELA Administration Docusate Sodium 100 mg 08/20/24 21:47 Docusate Sodium 100 Mg Capsule PO Q12H PRN constipation Famotidine 20 mg 08/20/24 22:05 08/28/24 09:19 Famotidine 20 Mg Tablet PO 20 mg BID ANGELA Administration Fluticasone Propionate 1 spray 08/21/24 09:00 08/28/24 09:20 Fluticasone Propionate 0.05% Na Spr 16 Gm Btl (*Bkc) NASAL 1 spray DAILY ANGELA Administration Gabapentin 400 mg 08/27/24 17:00 08/28/24 09:19 Gabapentin 400 Mg Capsule PO 400 mg TID ANGELA Administration Hydromorphone HCl 1 mg 08/25/24 16:16 08/27/24 11:58 Hydromorphone Hcl Inj (*Crx) 2 Mg/Ml Vial IV PUSH 1 mg Q2H PRN Administration Breakthrough Pain Rated 7-10 or NPO Hydromorphone HCl 0.5 mg 08/25/24 16:17 08/28/24 03:17 Hydromorphone Hcl Inj (*Crx) 2 Mg/Ml Vial IV PUSH 0.5 mg Q2H PRN Administration Breakthrough Pain Rated 4-6 or NPO Ibuprofen 400 mg/ Sodium 104 mls @ 208 mls/hr 08/26/24 15:46 08/28/24 11:59 Chloride IVPB 208 mls/hr Q6H PRN Administration Breakthrough Pain Levothyroxine Sodium 200 mcg 08/21/24 06:30 08/28/24 06:45 Levothyroxine Sodium 100 Mcg Tablet PO 200 mcg DAILY@0630 ANGELA Administration Loratadine 10 mg 08/22/24 10:05 08/28/24 09:19 Loratadine 10 Mg Tablet PO 10 mg DAILY ANGELA Administration Metolazone 5 mg 08/21/24 09:00 08/28/24 09:20 Metolazone 5 Mg Tablet PO 5 mg DAILY ANGELA Administration Metoprolol Tartrate 50 mg 08/20/24 22:05 08/28/24 09:19 Metoprolol Tartrate 50 Mg Tab PO 50 mg Q12HR ANGELA Administration Minoxidil 2.5 mg 08/21/24 09:00 08/28/24 09:19 Minoxidil 2.5 Mg Tablet PO 2.5 mg DAILY ANGELA Administration Multi-Ingred Cream/Lotion/Oil/Oint 1 applic 08/21/24 09:00 08/28/24 09:20 Eucerin Cream 454 Gm Jar TOPICAL 1 applic BID ANGELA Administration Mupirocin 1 applic 08/27/24 21:00 08/28/24 09:21 Mupirocin 2% Oint 22 Gm Tube EACH NARE 09/01/24 09:01 1 applic Q12HR ANGELA Administration Naloxone HCl 0.1 mg 08/25/24 16:14 Naloxone Hcl 0.4 Mg/Ml Vial IV PUSH Q2M PRN Opiate Reversal Ondansetron HCl 4 mg 08/27/24 14:12 08/27/24 17:08 Ondansetron Inj 4 Mg/2 Ml Vial IV PUSH 4 mg Q4H PRN Administration Nausea And Vomiting Oxycodone/Acetaminophen 1 tablet 08/25/24 16:14 08/27/24 20:41 Oxycodone/Acetaminophen (*Crx) 5-325 Mg Tablet PO 1 tablet Q4H PRN Administration Pain Rated 4-6 Oxycodone/Acetaminophen 1 tab 08/25/24 16:14 08/28/24 09:19 Oxycodone/Acetaminophen (*Crx) 10-325 Mg Tablet PO 1 tab Q6H PRN Administration Pain Rated 7-10 Polyethylene Glycol 17 gm 08/22/24 10:05 08/28/24 09:20 Polyethylene Glycol 3350 17 Gm Powd.Pack PO 17 gm DAILY ANGELA Administration Potassium Chloride 10 meq 08/20/24 22:04 Potassium Chloride 10 Meq Er Tablet PO DAILY PRN leg cramping Promethazine HCl 12.5 mg 08/20/24 16:16 Promethazine Hcl 25 Mg/Ml Ampul IV PUSH Q6H PRN Nausea Spironolactone 25 mg 08/21/24 09:00 08/28/24 09:20 Spironolactone 25 Mg Tablet PO 25 mg DAILY ANGELA Administration Tamsulosin HCl 0.4 mg 08/21/24 09:00 08/28/24 09:19 Tamsulosin Hcl 0.4 Mg Capsule PO 0.4 mg QAM ANGELA Administration Radiology Results: ITS Impressions Ankle X-Ray 08/20/24 12:55 IMPRESSION: Lucency over the right lateral malleolus. Follow-up advised. 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 Tibia/Fibula X-Ray 08/20/24 13:03 IMPRESSION: No definite acute osseous abnormality right leg. Lucencies in the area of the medial and lateral malleoli which may be summation shadows. Clinical correlation and follow-up advised.. Foot X-Ray 08/20/24 13:07 Impression: Extensive soft tissue swelling. No definite evidence for osteomyelitis. Labs Labs: Laboratory Results - last 24 hr 08/28/24 05:22 WBC 12.3 H RBC 3.24 L Hgb 8.3 L Hct 29.5 L MCV 91.0 MCH 25.6 L MCHC 28.1 L RDW 15.6 H Plt Count 264 MPV 10.3 Immature Gran % (Auto) 0.7 H Neut % (Auto) 84.9 H Lymph % (Auto) 3.2 L [place] % (Auto) 8.6 H Eos % (Auto) 2.1 Baso % (Auto) 0.5 Lymph # (Auto) 0.39 L [place] # (Auto) 1.1 H Eos # (Auto) 0.3 Baso # (Auto) 0.1 Abs Immat Gran (auto) 0.09 H Absolute Neuts (auto) 10.4 H Absolute Nucleated RBC 0.000 Band Neutrophils % 0 Nucleated RBC % 0.0 Platelet Estimate Adequate Tear Drop Cells 1+ Ovalocytes 1+ Schistocytes None seen Sodium 133 L Potassium 3.7 Chloride 93 L Carbon Dioxide 38 H Anion Gap 2 L BUN 60 H Creatinine 1.61 H Estim Creat Clear Calc 54 Estimated GFR 42 L Glucose 101 Calcium 8.8 Magnesium 1.9 Total Bilirubin 0.4 AST 26 ALT 8 Alkaline Phosphatase 50 Total Protein 5.0 L Albumin 2.5 L
--- NOTE | 2024-08-28 14:00 | P.PNIM_ITS ---
Progress Note: A&P Assessment and Plan (1) Venous stasis ulcer of right foot: Code(s): I83.015 - Varicose veins of right lower extremity with ulcer other part of foot Status: Acute Assessment and Plan: - ankle XR: Lucency over the right lateral malleolus. Follow-up advised. 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 - tib fib XR: No definite acute osseous abnormality right leg. Lucencies in the area of the medial and lateral malleoli which may be summation shadows. Clinical correlation and follow-up advised.. - foot XR: Extensive soft tissue swelling. No definite evidence for osteomyelitis. - started on Levaquin and Flagyl on 08/20/2024. Reviewed micro and patient has history of Pseudomonas and Staph with multiple resistances in March of 2024. Previously placed on meropenem after case was reviewed with ID pharmacist during the patient's most recent admission in May of 2024. Will place patient back on meropenem as well as vancomycin and obtain wound culture. - wound RN consulted. Recommendations: daily cleanse right lower leg and foot by the 5th toe, apply antifungal powder to open weeping maceration areas. place ABD pads and roll gauze cover if patient allows, if not place nito pads under and over foot and leg to control exudate and change daily and PRN if heavily soiled. -Surgery consulted, plan for a below-knee amputation of the right leg, added to surgery schedule for 08/25. HOLD Eliquis. DVT prophylaxis Lovenox 40 mg subq daily. -Blood cultures no growth to date. -Right BKA performed 08/25, plan for pain control -Surgery following, per note today: * Continue ramone wrap for compression and daily dressing changes. * Continue knee immobilizer * Okay to stop antibiotics from our standpoint * OK to resume Eliquis -->Apixaban restarted 5/30 AM -->Surgery added on low dose ibuprofen to see if would help with pain as well -->Increased gabapentin 300 TID to 400 TID to see if this also helps with pain, will continue to trend kidney levels daily with these medications -->Abx have been stopped (2) Peripheral vascular disease: Code(s): I73.9 - Peripheral vascular disease, unspecified Status: Acute Assessment and Plan: - follows with Chris DE LEON with vascular surgery. Reportedly told at most recent visit on XX that there were no further interventions to increased blood flow to his affected extremity as the disease is below the knee. (3) CHF (congestive heart failure): Qualifiers: Heart failure chronicity: chronic Heart failure type: diastolic Qualified Code(s): I50.32 - Chronic diastolic (congestive) heart failure Code(s): I50.9 - Heart failure, unspecified Status: Chronic Assessment and Plan: - echo, previous: Estimated EF 65-70%, grade 1 diastolic dysfunction. Technically difficult echo. See report for details. - continue home medications: Bumex (adjusting administration times to help pa tient get improved sleep), metolazone, spironolactone. Hold Diamox, contraindicated in CKD stage 4. - monitor I&Os daily weights, 149.6kg today (4) Atrial fibrillation: Qualifiers: Atrial fibrillation type: longstanding persistent Qualified Code(s): I48.11 - Longstanding persistent atrial fibrillation Code(s): I48.91 - Unspecified atrial fibrillation Status: Chronic Assessment and Plan: - Continue home medications: Eliquis and Metoprolol. - Eliquis to restart 530 am - Last dose of Lovenox 40 mg subq 08/27 PM (5) Chronic anemia: Code(s): D64.9 - Anemia, unspecified Status: Acute Assessment and Plan: - Hgb 8.3, previously 8.4 on 05/19/2024. At baseline. - Transfuse if <7. - Continue with daily labs (6) CKD (chronic kidney disease) stage 3, GFR 30-59 ml/min: Qualifiers: Chronic kidney disease stage 3 subtype: stage 3b (GFR 30-44) Qualified Code(s): N18.32 - Chronic kidney disease, stage 3b Code(s): N18.3 - Chronic kidney disease, stage 3 (moderate) Status: Acute Assessment and Plan: - creatinine 1.61 and GFR 42, previously 2.23 and GFR 29 on 05/19/2024 - trend renal function - trend electrolytes, correct as needed (7) Essential (primary) hypertension: Code(s): I10 - Essential (primary) hypertension Status: Chronic Assessment and Plan: - chronic, currently 126/58 - continue home medications: Metoprolol - Continue to monitor (8) AMELIA (obstructive sleep apnea): Code(s): G47.33 - Obstructive sleep apnea (adult) (pediatric) Status: Acute Assessment and Plan: - continue home CPAP Plan Diet: Heart healthy, chocolate ensure GI Prophylaxis: Not currently indicated DVT Prophylaxis: Eliquis restarted 5 AM IV fluids: None Lines/Tubes: Peripheral IV Code Status: Full code Subjective Date/time seen: 08/28/24 14:00 Interval history: Pt presented to the ED on 08/20 for chronic (3 yrs) R foot wound with increased erythema, edema, and malodorous smell x 1 week. Hx of PVD, gout, chronic lymphedema of the BLE, chronic anemia, AMELIA, AFib, rosacea, GERD, CHF, dyslipidemia, hypertension, peripheral polyneuropathy, and hypothyroidism. Pt sees outpt vasc at [facility] (Dr. Daniels) with no plans for procedure to increase vacular flow to leg. Recent admission here for similar sx in May 2024 and was D/C with wound care daily. ED workup showed: No leukocytosis, hemoglobin 9.5 (at baseline), sodium 133 (at baseline), creatinine 2.48 and GFR 26 (previously 2.23 and GFR 29 on 025). Ankle XR showed a lucency over the right lateral malleolus and osteoarthritic changes the ankle and subtalar joints. Tib/fib XR showed no definite acute osseous abnormality of the right leg and lipases in the area of the medial and lateral malleoli which may be summation shadows. Foot XR showed extensive soft tissue swelling and no definite evidence of osteomyelitis. R BKA was ultimately performed on 08/26 via surgery. Today when assessed, pt in a moderate amount of pain to his RLE but assessed him after surgery performed dressing change. Surgical team and this sports writer discussed with the pt the importance of trailing his oral pain medication. He states that his nephew called and told him that he has oxycodone and hydrocodone at home and he thinks that he has tolerated those in the past, oxy ordered by surgery. Pt states that his pain is mildly better today and that he was able to tolerate his oral Percocet yesterday evening and that it has helped since taking it and has been using less of the IV pain medication. Surgery to continue to follow with dressing changes. Review of Systems Review of Systems: All systems reviewed & are unremarkable except as noted in HPI and below Exam Const: General: comfortable, no acute distress, in distress and uncomfortable Other: , male, obese body habitus, nontoxic appearance HENMT: Face/Nose/Sinus: Normal nares present Mouth: Yes moist mucous membranes Other: tachy mucus membranes Eyes: General: appearance normal, both eyes and all related structures Sclera: sclerae normal Neck: Neck: supple and no JVD Resp: Effort & Inspection: normal respiratory effort Auscultation: clear to auscultation bilaterally Other: Speaking in complete sentences. Cardio: Rate: regular rate Rhythm: regular rhythm Other: S1-S2 present without murmur, rub, ectopy GI: Auscultation: normal bowel sounds Other: Abdomen soft, nondistended, nontender. Normoactive bowel sounds in all quadrants. Skin: General skin exam: normal color Other: RLE BKA ramone wrap dressing C/D/I with knee immobilizer applied Neuro: Cranial nerves: Yes Equal, round and reactive pupils present Speech: normal speech Motor exam (neuro): Normal motor muscle tone present throughout Sensory Exam: normal sensation Other: A&O x4 Extrem: Other: LLE with chronic lymphedema and venous stasis dermatitis. See skin. Psych: Mental Status: mental status grossly normal Affect: normal affect Other: Good insight and judgment, very pleasant Objective Data Vital Signs Vital Signs: Vital Signs - 24 hr 08/27/24 20:00 08/27/24 20:39 08/27/24 20:41 Temperature 99.5 F Pulse Rate 81 91 Respiratory Rate 16 Blood Pressure 126/61 Pulse Oximetry 95 Oxygen Delivery Room Air Oxygen Flow Rate 08/27/24 23:50 08/27/24 23:50 08/28/24 00:45 Temperature 99.7 F H Pulse Rate 88 83 Respiratory Rate 18 Blood Pressure 126/58 L Pulse Oximetry 95 95 98 Oxygen Delivery CPAP CPAP Oxygen Flow Rate 4 08/28/24 04:35 08/28/24 09:19 08/28/24 09:20 Temperature Pulse Rate 85 85 Respiratory Rate Blood Pressure Pulse Oximetry 95 Oxygen Delivery CPAP Room Air Oxygen Flow Rate Intake/Output Intake/Output: Intake & Output 08/25/24 08/26/24 08/27/24 08/28/24 23:59 23:59 23:59 23:59 Intake Total 750 4065 3785 2187 Output Total 7851 4725 1136 2400 Balance -4110 908 -498 -176 Meds/Results Medications: Active Medications Generic Name Dose Route Start Last Admin Trade Name Freq PRN Reason Stop Dose Admin Acetaminophen 650 mg 08/20/24 16:16 08/28/24 11:59 Acetaminophen 325 Mg Tablet PO 650 mg Q4H PRN Administration Mild Pain (1-3) or Fever Allopurinol 100 mg 08/21/24 09:00 08/28/24 09:19 Allopurinol 100 Mg Tablet PO 100 mg DAILY ANGELA Administration Apixaban 5 mg 08/20/24 22:05 08/28/24 09:25 Apixaban 5 Mg Tablet PO 5 mg Q12HR ANGELA Administration Bumetanide 1 mg 08/23/24 14:00 08/28/24 09:19 Bumetanide 1 Mg Tablet PO 1 mg TID@0600,1000,1400 ANGELA Administration Calcitriol 0.25 mcg 08/21/24 09:00 08/28/24 09:20 Calcitriol 0.25 Mcg Capsule PO 0.25 mcg MoWeFr@0900 ANGELA Administration Docusate Sodium 100 mg 08/20/24 21:47 Docusate Sodium 100 Mg Capsule PO Q12H PRN constipation Famotidine 20 mg 08/20/24 22:05 08/28/24 09:19 Famotidine 20 Mg Tablet PO 20 mg BID ANGELA Administration Fluticasone Propionate 1 spray 08/21/24 09:00 08/28/24 09:20 Fluticasone Propionate 0.05% Na Spr 16 Gm Btl (*Bkc) NASAL 1 spray DAILY ANGELA Administration Gabapentin 400 mg 08/27/24 17:00 08/28/24 09:19 Gabapentin 400 Mg Capsule PO 400 mg TID ANGELA Administration Hydromorphone HCl 1 mg 08/25/24 16:16 08/27/24 11:58 Hydromorphone Hcl Inj (*Crx) 2 Mg/Ml Vial IV PUSH 1 mg Q2H PRN Administration Breakthrough Pain Rated 7-10 or NPO Hydromorphone HCl 0.5 mg 08/25/24 16:17 08/28/24 03:17 Hydromorphone Hcl Inj (*Crx) 2 Mg/Ml Vial IV PUSH 0.5 mg Q2H PRN Administration Breakthrough Pain Rated 4-6 or NPO Ibuprofen 400 mg/ Sodium 104 mls @ 208 mls/hr 08/26/24 15:46 08/28/24 12:29 Chloride IVPB Infused Q6H PRN Infusion Breakthrough Pain Levothyroxine Sodium 200 mcg 08/21/24 06:30 08/28/24 06:45 Levothyroxine Sodium 100 Mcg Tablet PO 200 mcg DAILY@0630 ANGELA Administration Loratadine 10 mg 08/22/24 10:05 08/28/24 09:19 Loratadine 10 Mg Tablet PO 10 mg DAILY ANGELA Administration Metolazone 5 mg 08/21/24 09:00 08/28/24 09:20 Metolazone 5 Mg Tablet PO 5 mg DAILY ANGELA Administration Metoprolol Tartrate 50 mg 08/20/24 22:05 08/28/24 09:19 Metoprolol Tartrate 50 Mg Tab PO 50 mg Q12HR ANGELA Administration Minoxidil 2.5 mg 08/21/24 09:00 08/28/24 09:19 Minoxidil 2.5 Mg Tablet PO 2.5 mg DAILY ANGELA Administration Multi-Ingred Cream/Lotion/Oil/Oint 1 applic 08/21/24 09:00 08/28/24 09:20 Eucerin Cream 454 Gm Jar TOPICAL 1 applic BID ANGELA Administration Mupirocin 1 applic 08/27/24 21:00 08/28/24 09:21 Mupirocin 2% Oint 22 Gm Tube EACH NARE 09/01/24 09:01 1 applic Q12HR ANGELA Administration Naloxone HCl 0.1 mg 08/25/24 16:14 Naloxone Hcl 0.4 Mg/Ml Vial IV PUSH Q2M PRN Opiate Reversal Ondansetron HCl 4 mg 08/27/24 14:12 08/27/24 17:08 Ondansetron Inj 4 Mg/2 Ml Vial IV PUSH 4 mg Q4H PRN Administration Nausea And Vomiting Oxycodone/Acetaminophen 1 tablet 08/25/24 16:14 08/27/24 20:41 Oxycodone/Acetaminophen (*Crx) 5-325 Mg Tablet PO 1 tablet Q4H PRN Administration Pain Rated 4-6 Oxycodone/Acetaminophen 1 tab 08/25/24 16:14 08/28/24 09:19 Oxycodone/Acetaminophen (*Crx) 10-325 Mg Tablet PO 1 tab Q6H PRN Administration Pain Rated 7-10 Polyethylene Glycol 17 gm 08/22/24 10:05 08/28/24 09:20 Polyethylene Glycol 3350 17 Gm Powd.Pack PO 17 gm DAILY ANGELA Administration Potassium Chloride 10 meq 08/20/24 22:04 Potassium Chloride 10 Meq Er Tablet PO DAILY PRN leg cramping Promethazine HCl 12.5 mg 08/20/24 16:16 Promethazine Hcl 25 Mg/Ml Ampul IV PUSH Q6H PRN Nausea Spironolactone 25 mg 08/21/24 09:00 08/28/24 09:20 Spironolactone 25 Mg Tablet PO 25 mg DAILY ANGELA Administration Tamsulosin HCl 0.4 mg 08/21/24 09:00 08/28/24 09:19 Tamsulosin Hcl 0.4 Mg Capsule PO 0.4 mg QAM ANGELA Administration Radiology Results: ITS Impressions Ankle X-Ray 08/20/24 12:55 IMPRESSION: Lucency over the right lateral malleolus. Follow-up advised. 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 Tibia/Fibula X-Ray 08/20/24 13:03 IMPRESSION: No definite acute osseous abnormality right leg. Lucencies in the area of the medial and lateral malleoli which may be summation shadows. Clinical correlation and follow-up advised.. Foot X-Ray 08/20/24 13:07 Impression: Extensive soft tissue swelling. No definite evidence for osteomyelitis. Labs Labs: Laboratory Results - last 24 hr 08/28/24 05:22 WBC 12.3 H RBC 3.24 L Hgb 8.3 L Hct 29.5 L MCV 91.0 MCH 25.6 L MCHC 28.1 L RDW 15.6 H Plt Count 264 MPV 10.3 Immature Gran % (Auto) 0.7 H Neut % (Auto) 84.9 H Lymph % (Auto) 3.2 L [place] % (Auto) 8.6 H Eos % (Auto) 2.1 Baso % (Auto) 0.5 Lymph # (Auto) 0.39 L [place] # (Auto) 1.1 H Eos # (Auto) 0.3 Baso # (Auto) 0.1 Abs Immat Gran (auto) 0.09 H Absolute Neuts (auto) 10.4 H Absolute Nucleated RBC 0.000 Band Neutrophils % 0 Nucleated RBC % 0.0 Platelet Estimate Adequate Tear Drop Cells 1+ Ovalocytes 1+ Schistocytes None seen Sodium 133 L Potassium 3.7 Chloride 93 L Carbon Dioxide 38 H Anion Gap 2 L BUN 60 H Creatinine 1.61 H Estim Creat Clear Calc 54 Estimated GFR 42 L Glucose 101 Calcium 8.8 Magnesium 1.9 Total Bilirubin 0.4 AST 26 ALT 8 Alkaline Phosphatase 50 Total Protein 5.0 L Albumin 2.5 L Quality VTE Prophylaxis VTE prophylaxis: pharmacologic ordered
[2024-08-28] MEDS: oxyCODONE/ACETAMINOPHEN (*CRX) 5-325 MG TABLET 1 TABLET PO (14:44)
[2024-08-29] VITALS (9 sets, daily range): BP systolic 117–142; BP diastolic 62–82; PULSE 64–88; RESP 16–20; TEMP 36.5–37.1; O2SAT 90–98
[2024-08-29 05:40] LABS: Basophils Absolute Auto 0.1 K/mm3 (0.0-0.1); Basophils Percent Auto 0.7 % (0.2-1.2); Eosinophils Absolute Auto 0.3 K/mm3 (0-0.3); Hematocrit 28.9 % (42.0-52.0); Hemoglobin 8.2 g/dL (14.0-18.0); Immature Granulocyte Absolute 0.06 K/mm3 (0.00-0.031); Immature Granulocyte Percent A 0.6 % (0-0.5); Lymphocytes Absolute Auto 0.46 K/mm3 (0.9-3.2); Lymphocytes Percent Auto 4.4 % (18.3-44.2); Mean Corpuscular HGB Conc 28.4 g/dl (32-36); Mean Corpuscular Hemoglobin 25.7 pg (26-34); Mean Corpuscular Volume 90.6 fl (80-100); Monocytes Percent Auto 10.1 % (2.6-8.5); Neutrophils Absolute Auto 8.4 K/mm3 (1.3-6.7); Neutrophils Percent Auto 81.2 % (45.5-73.1); Platelet Count Result 259 k/mm3 (150-375); Red Blood Count 3.19 M/mm3 (4.6-6.20); Red Cell Distribution Width 15.4 % (11.5-14.5); White Blood Count 10.3 K/mm3 (4.5-10.0)
[2024-08-29 06:01] LABS: Anisocytosis 1+; Hypochromasia 1+; Platelet Estimate Adequate (Adequate)
[2024-08-29 06:02] LABS: Schistocytes None Seen
[2024-08-29 06:19] LABS: Alanine Aminotransferase 12 U/L (6-50); Albumin Level 2.9 g/dL (3.5-5.1); Alkaline Phosphatase 52 U/L (38-126); Aspartate Amino Transferase 34 U/L (17-59); Bilirubin,Total 0.4 mg/dL (0.2-1.3); Blood Urea Nitrogen 65 mg/dL (9-20); Carbon Dioxide > 40 mmol/L (22-30); Chloride 88 mmol/L (98-107); Estimated CRCL calculation 47 ml/min; Estimated Glomerular Filt Rate 35; Glucose 100 mg/dL (65-110); Potassium 4.1 mmol/L (3.4-5.0); Sodium 133 mmol/L (137-145)
[2024-08-29] MEDS: LEVOTHYROXINE SODIUM 100 MCG TABLET 200 MCG PO (06:31)
[2024-08-29] MEDS: BUMETANIDE 1 MG TABLET PO ×3 (06:31→13:01)
[2024-08-29] MEDS: oxyCODONE/ACETAMINOPHEN (*CRX) 10-325 MG TABLET 1 TAB PO (06:31)
--- NOTE | 2024-08-29 07:09 | P.PNIM_ITS ---
Progress Note: A&P Assessment and Plan (1) Venous stasis ulcer of right foot: Code(s): I83.015 - Varicose veins of right lower extremity with ulcer other part of foot Status: Acute Assessment and Plan: - ankle XR: Lucency over the right lateral malleolus. Follow-up advised. 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 - tib fib XR: No definite acute osseous abnormality right leg. Lucencies in the area of the medial and lateral malleoli which may be summation shadows. Clinical correlation and follow-up advised.. - foot XR: Extensive soft tissue swelling. No definite evidence for osteomyelitis. - started on Levaquin and Flagyl on 08/20/2024. Reviewed micro and patient has history of Pseudomonas and Staph with multiple resistances in March of 2024. Previously placed on meropenem after case was reviewed with ID pharmacist during the patient's most recent admission in May of 2024. Will place patient back on meropenem as well as vancomycin and obtain wound culture. - wound RN consulted. Recommendations: daily cleanse right lower leg and foot by the 5th toe, apply antifungal powder to open weeping maceration areas. place ABD pads and roll gauze cover if patient allows, if not place nito pads under and over foot and leg to control exudate and change daily and PRN if heavily soiled. -Surgery consulted, plan for a below-knee amputation of the right leg, added to surgery schedule for 08/25. HOLD Eliquis. DVT prophylaxis Lovenox 40 mg subq daily. -Blood cultures no growth to date. -Right BKA performed 08/25, plan for pain control -Surgery following, per note today: * Continue ramone wrap for compression and daily dressing changes. * Continue knee immobilizer * Okay to stop antibiotics from our standpoint * OK to resume Eliquis -->Apixaban restarted 08/28 AM -->Surgery added on low dose ibuprofen to see if would help with pain as well -->Increased gabapentin 300 TID to 400 TID to see if this also helps with pain, will continue to trend kidney levels daily with these medications -Pt reporting that he thinks the combination of Percocet, Ibuprofen, and the increase of Gabapentin are helping control his pain the best since -->Abx have been stopped -->Pt started PT/OT on 08/28 (2) Peripheral vascular disease: Code(s): I73.9 - Peripheral vascular disease, unspecified Status: Acute Assessment and Plan: - Follows with Chris DE LEON with vascular surgery. Reportedly told at most recent visit on XX that there were no further interventions to increased blood flow to his affected extremity as the disease is below the knee. (3) CHF (congestive heart failure): Qualifiers: Heart failure chronicity: chronic Heart failure type: diastolic Qualified Code(s): I50.32 - Chronic diastolic (congestive) heart failure Code(s): I50.9 - Heart failure, unspecified Status: Chronic Assessment and Plan: - echo, previous: Estimated EF 65-70%, grade 1 diastolic dysfunction. Technically difficult echo. See report for details. - continue home medications: Bumex (adjusting administration times to help patient get improved sleep), metolazone, spironolactone. Hold Diamox, contraindicated in CKD stage 4. - Pt continues to deny SOB - monitor I&Os daily weights, 148.5kg today (4) Atrial fibrillation: Qualifiers: Atrial fibrillation type: longstanding persistent Qualified Code(s): I48.11 - Longstanding persistent atrial fibrillation Code(s): I48.91 - Unspecified atrial fibrillation Status: Chronic Assessment and Plan: - Continue home medications: Eliquis and Metoprolol. - Eliquis to restart 08/28 am - Last dose of Lovenox 40 mg subq 08/27 PM (5) Chronic anemia: Code(s): D64.9 - Anemia, unspecified Status: Acute Assessment and Plan: - Hgb 8.2, previously 8.4 on 05/19/2024. At baseline. - Transfuse if <7. - Continue with daily labs (6) CKD (chronic kidney disease) stage 3, GFR 30-59 ml/min: Qualifiers: Chronic kidney disease stage 3 subtype: stage 3b (GFR 30-44) Qualified Code(s): N18.32 - Chronic kidney disease, stage 3b Code(s): N18.3 - Chronic kidney disease, stage 3 (moderate) Status: Acute Assessment and Plan: - creatinine 1.88 and GFR 35, previously 2.23 and GFR 29 on 05/19/2024 - trend renal function - trend electrolytes, correct as needed (7) Essential (primary) hypertension: Code(s): I10 - Essential (primary) hypertension Status: Chronic Assessment and Plan: - chronic, currently 126/62 - continue home medications: Metoprolol - Continue to monitor (8) AMELIA (obstructive sleep apnea): Code(s): G47.33 - Obstructive sleep apnea (adult) (pediatric) Status: Acute Assessment and Plan: - continue home CPAP Plan Diet: Heart healthy, chocolate ensure GI Prophylaxis: Not currently indicated DVT Prophylaxis: Eliquis IV fluids: None Lines/Tubes: Peripheral IV Code Status: Full code Subjective Date/time seen: 08/29/24 0950 Interval history: Pt presented to the ED on 08/20 for chronic (3 yrs) R foot wound with increased erythema, edema, and malodorous smell x 1 week. Hx of PVD, gout, chronic lymphedema of the BLE, chronic anemia, AMELIA, AFib, rosacea, GERD, CHF, dyslipidemia, hypertension, peripheral polyneuropathy, and hypothyroidism. Pt sees outpt vasc at [facility] (Dr. Daniels) with no plans for procedure to increase vacular flow to leg. Recent admission here for similar sx in May 2024 and was D/C with wound care daily. ED workup showed: No leukocytosis, hemoglobin 9.5 (at baseline), sodium 133 (at baseline), creatinine 2.48 and GFR 26 (previously 2.23 and GFR 29 on 05/19/2024). Ankle XR showed a lucency over the right lateral malleolus and osteoarthritic changes the ankle and subtalar joints. Tib/fib XR showed no definite acute osseous abnormality of the right leg and lipases in the area of the medial and lateral malleoli which may be summation shadows. Foot XR showed extensive soft tissue swelling and no definite evidence of osteomyelitis. R BKA was ultimately performed on 08/26 via surgery. Today when assessed, pt in a moderate amount of pain to his RLE but assessed him after surgery performed dressing change. Surgical team and this chart writer discussed with the pt the importance of trailing his oral pain medication. He states that his nephew called and told him that he has oxycodone and hydrocodone at home and he thinks that he has tolerated those in the past, oxy ordered by surgery. Pt continues to report that his pain is mildly better today and believes that we are on the right track with his pain management, he continues to tolerate his oral Percocet. Denies any other sx at this time including SOB, CP. He first day of OT/PT was on 08/28. Surgery to continue to follow with dressing changes. Review of Systems Review of Systems: All systems reviewed & are unremarkable except as noted in HPI and below Exam Const: General: comfortable, no acute distress, in distress and uncomfortable Other: , male, obese body habitus, nontoxic appearance HENMT: Face/Nose/Sinus: Normal nares present Mouth: Yes moist mucous membranes Eyes: General: appearance normal, both eyes and all related structures Sclera: sclerae normal Neck: Neck: supple and no JVD Resp: Effort & Inspection: normal respiratory effort Auscultation: clear to auscultation bilaterally Other: Speaking in complete sentences. Cardio: Rate: regular rate Rhythm: regular rhythm Other: S1-S2 present without murmur, rub, ectopy GI: Auscultation: normal bowel sounds Other: Abdomen soft, nondistended, nontender. Normoactive bowel sounds in all quadrants. Skin: General skin exam: normal color Other: RLE BKA ramone wrap dressing C/D/I with knee immobilizer applied Neuro: Cranial nerves: Yes Equal, round and reactive pupils present Speech: normal speech Motor exam (neuro): Normal motor muscle tone present throughout Sensory Exam: normal sensation Other: A&O x4 Extrem: Other: LLE with chronic lymphedema and venous stasis dermatitis. See skin. Psych: Mental Status: mental status grossly normal Affect: normal affect Other: Good insight and judgment, very pleasant Objective Data Vital Signs Vital Signs: Vital Signs - 24 hr 08/28/24 09:19 08/28/24 09:20 08/28/24 14:00 Temperature 97.6 F Pulse Rate 85 82 Respiratory Rate 18 Blood Pressure 106/74 Pulse Oximetry 94 Oxygen Delivery Room Air 08/28/24 15:36 08/28/24 16:00 08/28/24 20:44 Temperature Pulse Rate 82 Respiratory Rate Blood Pressure Pulse Oximetry Oxygen Delivery Room Air Room Air 08/28/24 22:00 08/28/24 22:07 08/29/24 02:00 Temperature 97.7 F Pulse Rate 81 85 79 Respiratory Rate 18 Blood Pressure 121/58 L Pulse Oximetry 95 100 95 Oxygen Delivery CPAP CPAP Intake/Output Intake/Output: Intake & Output 08/26/24 08/27/24 08/28/24 08/29/24 23:59 23:59 23:59 23:59 Intake Total 4065 3785 4501 Output Total 3325 4000 4550 Balance 740 -215 -92 Meds/Results Medications: Active Medications Generic Name Dose Route Start Last Admin Trade Name Freq PRN Reason Stop Dose Admin Acetaminophen 650 mg 08/20/24 16:16 08/28/24 17:31 Acetaminophen 325 Mg Tablet PO 650 mg Q4H PRN Administration Mild Pain (1-3) or Fever Allopurinol 100 mg 08/21/24 09:00 08/28/24 09:19 Allopurinol 100 Mg Tablet PO 100 mg DAILY ANGELA Administration Apixaban 5 mg 08/20/24 22:05 08/28/24 20:44 Apixaban 5 Mg Tablet PO 5 mg Q12HR ANGELA Administration Bumetanide 1 mg 08/23/24 14:00 08/29/24 06:31 Bumetanide 1 Mg Tablet PO 1 mg TID@0600,1000,1400 ANGELA Administration Calcitriol 0.25 mcg 08/21/24 09:00 08/28/24 09:20 Calcitriol 0.25 Mcg Capsule PO 0.25 mcg MoWeFr@0900 ANGELA Administration Docusate Sodium 100 mg 08/20/24 21:47 Docusate Sodium 100 Mg Capsule PO Q12H PRN constipation Famotidine 20 mg 08/20/24 22:05 08/28/24 17:31 Famotidine 20 Mg Tablet PO 20 mg BID ANGELA Administration Fluticasone Propionate 1 spray 08/21/24 09:00 08/28/24 09:20 Fluticasone Propionate 0.05% Na Spr 16 Gm Btl (*Bkc) NASAL 1 spray DAILY ANGELA Administration Gabapentin 400 mg 08/27/24 17:00 08/28/24 17:31 Gabapentin 400 Mg Capsule PO 400 mg TID ANGELA Administration Hydromorphone HCl 1 mg 08/25/24 16:16 08/27/24 11:58 Hydromorphone Hcl Inj (*Crx) 2 Mg/Ml Vial IV PUSH 1 mg Q2H PRN Administration Breakthrough Pain Rated 7-10 or NPO Hydromorphone HCl 0.5 mg 08/25/24 16:17 08/28/24 03:17 Hydromorphone Hcl Inj (*Crx) 2 Mg/Ml Vial IV PUSH 0.5 mg Q2H PRN Administration Breakthrough Pain Rated 4-6 or NPO Ibuprofen 400 mg/ Sodium 104 mls @ 208 mls/hr 08/26/24 15:46 08/28/24 12:29 Chloride IVPB Infused Q6H PRN Infusion Breakthrough Pain Levothyroxine Sodium 200 mcg 08/21/24 06:30 08/29/24 06:31 Levothyroxine Sodium 100 Mcg Tablet PO 200 mcg DAILY@0630 ANGELA Administration Loratadine 10 mg 08/22/24 10:05 08/28/24 09:19 Loratadine 10 Mg Tablet PO 10 mg DAILY ANGELA Administration Metolazone 5 mg 08/21/24 09:00 08/28/24 09:20 Metolazone 5 Mg Tablet PO 5 mg DAILY ANGELA Administration Metoprolol Tartrate 50 mg 08/20/24 22:05 08/28/24 20:44 Metoprolol Tartrate 50 Mg Tab PO 50 mg Q12HR ANGELA Administration Minoxidil 2.5 mg 08/21/24 09:00 08/28/24 09:19 Minoxidil 2.5 Mg Tablet PO 2.5 mg DAILY ANGELA Administration Multi-Ingred Cream/Lotion/Oil/Oint 1 applic 08/21/24 09:00 08/28/24 17:31 Eucerin Cream 454 Gm Jar TOPICAL 1 applic BID ANGELA Administration Mupirocin 1 applic 08/27/24 21:00 08/28/24 20:45 Mupirocin 2% Oint 22 Gm Tube EACH NARE 09/01/24 09:01 1 applic Q12HR ANGELA Administration Naloxone HCl 0.1 mg 08/25/24 16:14 Naloxone Hcl 0.4 Mg/Ml Vial IV PUSH Q2M PRN Opiate Reversal Ondansetron HCl 4 mg 08/27/24 14:12 08/27/24 17:08 Ondansetron Inj 4 Mg/2 Ml Vial IV PUSH 4 mg Q4H PRN Administration Nausea And Vomiting Oxycodone/Acetaminophen 1 tablet 08/25/24 16:14 08/28/24 14:44 Oxycodone/Acetaminophen (*Crx) 5-325 Mg Tablet PO 1 tablet Q4H PRN Administration Pain Rated 4-6 Oxycodone/Acetaminophen 1 tab 08/25/24 16:14 08/29/24 06:31 Oxycodone/Acetaminophen (*Crx) 10-325 Mg Tablet PO 1 tab Q6H PRN Administration Pain Rated 7-10 Polyethylene Glycol 17 gm 08/22/24 10:05 08/28/24 09:20 Polyethylene Glycol 3350 17 Gm Powd.Pack PO 17 gm DAILY ANGELA Administration Potassium Chloride 10 meq 08/20/24 22:04 Potassium Chloride 10 Meq Er Tablet PO DAILY PRN leg cramping Promethazine HCl 12.5 mg 08/20/24 16:16 Promethazine Hcl 25 Mg/Ml Ampul IV PUSH Q6H PRN Nausea Spironolactone 25 mg 08/21/24 09:00 08/28/24 09:20 Spironolactone 25 Mg Tablet PO 25 mg DAILY ANGELA Administration Tamsulosin HCl 0.4 mg 08/21/24 09:00 08/28/24 09:19 Tamsulosin Hcl 0.4 Mg Capsule PO 0.4 mg QAM ANGELA Administration Radiology Results: ITS Impressions Ankle X-Ray 08/20/24 12:55 IMPRESSION: Lucency over the right lateral malleolus. Follow-up advised. 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 Tibia/Fibula X-Ray 08/20/24 13:03 IMPRESSION: No definite acute osseous abnormality right leg. Lucencies in the area of the medial and lateral malleoli which may be summation shadows. Clinical correlation and follow-up advised.. Foot X-Ray 08/20/24 13:07 Impression: Extensive soft tissue swelling. No definite evidence for osteomyelitis. Labs Labs: Laboratory Results - last 24 hr 08/28/24 08/29/24 05:22 05:28 WBC 10.3 H RBC 3.19 L Hgb 8.2 L Hct 28.9 L MCV 90.6 MCH 25.7 L MCHC 28.4 L RDW 15.4 H Plt Count 259 MPV 10.0 Immature Gran % (Auto) 0.6 H Neut % (Auto) 81.2 H Lymph % (Auto) 4.4 L Callahan % (Auto) 10.1 H Eos % (Auto) 3.0 Baso % (Auto) 0.7 Lymph # (Auto) 0.46 L Callahan # (Auto) 1.0 H Eos # (Auto) 0.3 Baso # (Auto) 0.1 Abs Immat Gran (auto) 0.06 H Absolute Neuts (auto) 8.4 H Absolute Nucleated RBC 0.000 Band Neutrophils % Not Reportable Nucleated RBC % 0.0 Platelet Estimate Adequate Hypochromasia 1+ Anisocytosis 1+ Schistocytes None seen Sodium 133 L 133 L Potassium 3.7 4.1 Chloride 93 L 88 L Carbon Dioxide 38 H > 40 H Anion Gap 2 L BUN 60 H 65 H Creatinine 1.61 H 1.88 H Estim Creat Clear Calc 54 47 Estimated GFR 42 L 35 L Glucose 101 100 Calcium 8.8 9.0 Magnesium 1.9 Total Bilirubin 0.4 0.4 AST 26 34 ALT 8 12 Alkaline Phosphatase 50 52 Total Protein 5.0 L 5.0 L Albumin 2.5 L 2.9 L Quality VTE Prophylaxis VTE prophylaxis: pharmacologic ordered
[2024-08-29] MEDS: FLUTICASONE PROPIONATE 0.05% NA SPR 16 GM BTL (*BKC) 1 SPRAY NASAL (10:00)
[2024-08-29] MEDS: minoxidiL 2.5 MG TABLET PO (10:01)
[2024-08-29] MEDS: TAMSULOSIN HCL 0.4 MG CAPSULE PO (10:01)
[2024-08-29] MEDS: LORATADINE 10 MG TABLET PO (10:01)
[2024-08-29] MEDS: GABAPENTIN 400 MG CAPSULE PO ×3 (10:01→17:22)
[2024-08-29] MEDS: FAMOTIDINE 20 MG TABLET PO ×2 (10:01→17:22)
[2024-08-29] MEDS: allopurinoL 100 MG TABLET PO (10:01)
[2024-08-29] MEDS: metOLazone 5 MG TABLET PO (10:01)
[2024-08-29] MEDS: APIXABAN 5 MG TABLET PO ×2 (10:01→20:23)
[2024-08-29] MEDS: SPIRONOLACTONE 25 MG TABLET PO (10:02)
[2024-08-29] MEDS: METOPROLOL TARTRATE 50 MG TAB PO ×2 (10:02→20:23)
[2024-08-29] MEDS: MUPIROCIN 2% OINT 22 GM TUBE 1 APPLIC EACH NARE ×2 (10:03→20:23)
[2024-08-29] MEDS: EUCERIN CREAM 454 GM JAR 1 APPLIC TOPICAL ×2 (10:03→17:23)
[2024-08-29] MEDS: polyethylene glycoL 3350 17 GM POWD.PACK PO (10:03)
[2024-08-29] MEDS: HYDROmorphone HCL INJ (*CRX) 2 MG/ML VIAL 1 MG IV PUSH (14:31)
[2024-08-29] MEDS: oxyCODONE/ACETAMINOPHEN (*CRX) 5-325 MG TABLET 1 TABLET PO (20:23)
[2024-08-30] VITALS (9 sets, daily range): BP systolic 119–127; BP diastolic 52–56; PULSE 77–102; RESP 18; TEMP 36.1–36.7; O2SAT 94–100
[2024-08-30] MEDS: BUMETANIDE 1 MG TABLET PO ×3 (05:39→13:03)
[2024-08-30] MEDS: LEVOTHYROXINE SODIUM 100 MCG TABLET 200 MCG PO (05:39)
[2024-08-30 05:51] LABS: Basophils Absolute Auto 0.1 K/mm3 (0.0-0.1); Basophils Percent Auto 0.7 % (0.2-1.2); Eosinophils Absolute Auto 0.2 K/mm3 (0-0.3); Eosinophils Percent Auto 2.4 % (0-4.4); Hematocrit 28.9 % (42.0-52.0); Hemoglobin 8.3 g/dL (14.0-18.0); Immature Granulocyte Absolute 0.05 K/mm3 (0.00-0.031); Immature Granulocyte Percent A 0.5 % (0-0.5); Lymphocytes Absolute Auto 0.53 K/mm3 (0.9-3.2); Lymphocytes Percent Auto 5.4 % (18.3-44.2); Mean Corpuscular HGB Conc 28.7 g/dl (32-36); Mean Corpuscular Hemoglobin 25.9 pg (26-34); Mean Corpuscular Volume 90.3 fl (80-100); Mean Platelet Volume 10.1 fl (7.4-10.4); Monocytes Absolute Auto 1.3 K/mm3 (0.1-0.6); Neutrophils Absolute Auto 7.7 K/mm3 (1.3-6.7); Platelet Count Result 297 k/mm3 (150-375); Red Cell Distribution Width 15.2 % (11.5-14.5); White Blood Count 9.9 K/mm3 (4.5-10.0)
[2024-08-30 06:07] LABS: Alanine Aminotransferase 18 U/L (6-50); Alkaline Phosphatase 58 U/L (38-126); Aspartate Amino Transferase 44 U/L (17-59); Bilirubin,Total 0.4 mg/dL (0.2-1.3); Blood Urea Nitrogen 69 mg/dL (9-20); Calcium 9.2 mg/dL (8.4-10.2); Carbon Dioxide > 40 mmol/L (22-30); Chloride 84 mmol/L (98-107); Estimated CRCL calculation 45 ml/min; Estimated Glomerular Filt Rate 33; Glucose 101 mg/dL (65-110); Potassium 4.2 mmol/L (3.4-5.0); Sodium 132 mmol/L (137-145)
[2024-08-30 06:40] LABS: Hypochromasia 1+; Ovalocytes 1+; Platelet Estimate Adequate (Adequate); Schistocytes None Seen
--- NOTE | 2024-08-30 08:18 | P.PNIM_ITS ---
Progress Note: A&P Assessment and Plan (1) Venous stasis ulcer of right foot: Code(s): I83.015 - Varicose veins of right lower extremity with ulcer other part of foot Status: Acute Assessment and Plan: - ankle XR: Lucency over the right lateral malleolus. Follow-up advised. 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 - tib fib XR: No definite acute osseous abnormality right leg. Lucencies in the area of the medial and lateral malleoli which may be summation shadows. Clinical correlation and follow-up advised.. - foot XR: Extensive soft tissue swelling. No definite evidence for osteomyelitis. - started on Levaquin and Flagyl on 08/20/2024. Reviewed micro and patient has history of Pseudomonas and Staph with multiple resistances in March of 2024. Previously placed on meropenem after case was reviewed with ID pharmacist during the patient's most recent admission in May of 2024. Will [address] patient back on meropenem as well as vancomycin and obtain wound culture. - wound RN consulted. Recommendations: daily cleanse right lower leg and foot by the 5th toe, apply antifungal powder to open weeping maceration areas. place ABD pads and roll gauze cover if patient allows, if not place nito pads under and over foot and leg to control exudate and change daily and PRN if heavily soiled. -Surgery consulted, plan for a below-knee amputation of the right leg, added to surgery schedule for 08/25. HOLD Eliquis. DVT prophylaxis Lovenox 40 mg subq daily. -Blood cultures no growth to date. -Right BKA performed 08/25, continue pain control -Surgery following, per note 08/28: * Continue ramone wrap for compression and daily dressing changes. * Continue knee immobilizer * Okay to stop antibiotics from our standpoint * OK to resume Eliquis -->Apixaban restarted 08/28 AM -->Surgery added on low dose ibuprofen to see if would help with pain as well, using this PRN -->Increased gabapentin 300 TID to 400 TID to see if this also helps with pain, will continue to trend kidney levels daily with these medications ---->Decreased back to original dosage for kidney preservation due to adequate pain control with other meds -->Abx have been stopped, WBC WDL -->Pt started PT/OT on 08/28, will continue with ultimate plans for D/C to rehab (2) Peripheral vascular disease: Code(s): I73.9 - Peripheral vascular disease, unspecified Status: Acute Assessment and Plan: - Follows with Chris DE LEON with vascular surgery. Reportedly told at most recent visit on XX that there were no further interventions to increased blood flow to his affected extremity as the disease is below the knee. (3) CHF (congestive heart failure): Qualifiers: Heart failure chronicity: chronic Heart failure type: diastolic Qualified Code(s): I50.32 - Chronic diastolic (congestive) heart failure Code(s): I50.9 - Heart failure, unspecified Status: Chronic Assessment and Plan: - echo, previous: Estimated EF 65-70%, grade 1 diastolic dysfunction. Technically difficult echo. See report for details. - continue home medications: Bumex (adjusting administration times to help patient get improved sleep), metolazone, spironolactone. Hold Diamox, contraindicated in CKD stage 4. - Pt continues to deny SOB/CP/abnormal swelling - monitor I&Os daily weights, 149kg today (4) Atrial fibrillation: Qualifiers: Atrial fibrillation type: longstanding persistent Qualified Code(s): I48.11 - Longstanding persistent atrial fibrillation Code(s): I48.91 - Unspecified atrial fibrillation Status: Chronic Assessment and Plan: - Continue home medications: Eliquis and Metoprolol. - Eliquis restarted 5/30 am - Last dose of Lovenox 40 mg subq 5 PM (5) Chronic anemia: Code(s): D64.9 - Anemia, unspecified Status: Acute Assessment and Plan: - Hgb 8.3, previously 8.4 on 05/19/2024. At baseline. - Transfuse if <7. - Continue with daily labs (6) CKD (chronic kidney disease) stage 3, GFR 30-59 ml/min: Qualifiers: Chronic kidney disease stage 3 subtype: stage 3b (GFR 30-44) Qualified Code(s): N18.32 - Chronic kidney disease, stage 3b Code(s): N18.3 - Chronic kidney disease, stage 3 (moderate) Status: Acute Assessment and Plan: Chronic, watching closely due to the addition of ibuprofen and increase of gabapentin for pain control - Ibuprofen strictly used for PRN basis only, went back to original gabapentin dosage of 300mg TID for kidney preservation since pain is more controlled now - creatinine 1.98 and GFR 33, previously 2.23 and GFR 29 on 05/19/2024 - trend renal function - trend electrolytes, correct as needed (7) Essential (primary) hypertension: Code(s): I10 - Essential (primary) hypertension Status: Chronic Assessment and Plan: - Chronic, currently 127/56 - Continue home medications: Metoprolol - Continue to monitor (8) AMELIA (obstructive sleep apnea): Code(s): G47.33 - Obstructive sleep apnea (adult) (pediatric) Status: Acute Assessment and Plan: - continue home CPAP (9) Hyponatremia: Code(s): E87.1 - Hypo-osmolality and hyponatremia Status: Acute Assessment and Plan: Appears to be chronic, continue to trend labs and encourage diet, asymptomatic -Added urine os, serum os, and urine sodium /, pending Plan Diet: Heart healthy, chocolate ensure GI Prophylaxis: Not currently indicated DVT Prophylaxis: Eliquis IV fluids: None Lines/Tubes: Peripheral IV Code Status: Full code Subjective Date/time seen: 08/30/24 1045 Interval history: Pt presented to the ED on 08/20 for chronic (3 yrs) R foot wound with increased erythema, edema, and malodorous smell x 1 week. Hx of PVD, gout, chronic lymphedema of the BLE, chronic anemia, AMELIA, AFib, rosacea, GERD, CHF, dyslipidemia, hypertension, peripheral polyneuropathy, and hypothyroidism. Pt sees outpt vasc at [facility] (Dr. Daniels) with no plans for procedure to increase vacular flow to leg. Recent admission here for similar sx in May 2024 and was D/C with wound care daily. ED workup showed: No leukocytosis, hemoglobin 9.5 (at baseline), sodium 133 (at baseline), creatinine 2.48 and GFR 26 (previously 2.23 and GFR 29 on 05/19/2024). Ankle XR showed a lucency over the right lateral malleolus and osteoarthritic changes the ankle and subtalar joints. Tib/fib XR showed no definite acute osseous abnormality of the right leg and lipases in the area of the medial and lateral malleoli which may be summation shadows. Foot XR showed extensive soft tissue swelling and no definite evidence of osteomyelitis. R BKA was ultimately performed on 08/26 via surgery. Today when assessed, pt in a moderate amount of pain to his RLE but assessed him after surgery performed dressing change. Surgical team and this insurance underwriter discussed with the pt the importance of trailing his oral pain medication. He states that his nephew called and told him that he has oxycodone and hydrocodone at home and he thinks that he has tolerated those in the past, oxy ordered by surgery. 08/30: Pt continues to report that his pain is mildly better today and believes that we are on the right track with his pain management, he continues to tolerate his oral Percocet. Denies any other sx at this time including SOB, CP. He first day of OT/PT was on 08/28. Surgery to continue to follow with RN performing dressing changes. Plan for rehab D/C in the near future pending surgical & therapy sign off. Review of Systems Review of Systems: All systems reviewed & are unremarkable except as noted in HPI and below Exam Const: General: comfortable, no acute distress, in distress and uncomfortable Other: , male, obese body habitus, nontoxic appearance HENMT: Face/Nose/Sinus: Normal nares present Mouth: Yes moist mucous membranes Eyes: General: appearance normal, both eyes and all related structures Sclera: sclerae normal Neck: Neck: supple and no JVD Resp: Effort & Inspection: normal respiratory effort Auscultation: clear to auscultation bilaterally Other: Speaking in complete sentences. Cardio: Rate: regular rate Rhythm: regular rhythm Other: S1-S2 present without murmur, rub, ectopy GI: Auscultation: normal bowel sounds Other: Abdomen soft, nondistended, nontender. Normoactive bowel sounds in all quadrants. Skin: General skin exam: normal color Other: RLE BKA ramone wrap dressing C/D/I with knee immobilizer applied Neuro: Cranial nerves: Yes Equal, round and reactive pupils present Speech: normal speech Motor exam (neuro): Normal motor muscle tone present throughout Sensory Exam: normal sensation Other: A&O x4 Extrem: Other: LLE with chronic lymphedema and venous stasis dermatitis. Cream applied. See skin. Psych: Mental Status: mental status grossly normal Affect: normal affect Other: Good insight and judgment, very pleasant Objective Data Vital Signs Vital Signs: Vital Signs - 24 hr 08/29/24 08:19 08/29/24 10:00 08/29/24 10:02 Temperature Pulse Rate 81 88 Respiratory Rate 20 Blood Pressure Pulse Oximetry 92 92 Oxygen Delivery Room Air Room Air Fraction of Inspired Oxygen 21 21 08/29/24 16:00 08/29/24 19:38 08/29/24 20:00 Temperature 98.4 F Pulse Rate 64 78 Respiratory Rate 16 20 Blood Pressure 142/68 H Pulse Oximetry 98 90 Oxygen Delivery Room Air Room Air Fraction of Inspired Oxygen 21 08/29/24 22:09 08/29/24 22:17 08/30/24 01:27 Temperature 97.7 F Pulse Rate 80 80 77 Respiratory Rate 18 Blood Pressure 117/82 Pulse Oximetry 95 97 94 Oxygen Delivery CPAP CPAP Fraction of Inspired Oxygen 08/30/24 04:04 08/30/24 06:00 Temperature 97.0 F L Pulse Rate 80 81 Respiratory Rate 18 Blood Pressure 127/56 L Pulse Oximetry 95 99 Oxygen Delivery CPAP Fraction of Inspired Oxygen Intake/Output Intake/Output: Intake & Output 08/27/24 08/28/24 08/29/24 08/30/24 23:59 23:59 23:59 23:59 Intake Total 3785 4501 3140 700 Output Total 4000 4550 2350 3200 Balance -215 -49 790 -2500 Meds/Results Medications: Active Medications Generic Name Dose Route Start Last Admin Trade Name Freq PRN Reason Stop Dose Admin Acetaminophen 650 mg 08/20/24 16:16 08/28/24 17:31 Acetaminophen 325 Mg Tablet PO 650 mg Q4H PRN Administration Mild Pain (1-3) or Fever Allopurinol 100 mg 08/21/24 09:00 08/29/24 10:01 Allopurinol 100 Mg Tablet PO 100 mg DAILY ANGELA Administration Apixaban 5 mg 08/20/24 22:05 08/29/24 20:23 Apixaban 5 Mg Tablet PO 5 mg Q12HR ANGELA Administration Bumetanide 1 mg 08/23/24 14:00 08/30/24 05:39 Bumetanide 1 Mg Tablet PO 1 mg TID@0600,1000,1400 ANGELA Administration Calcitriol 0.25 mcg 08/21/24 09:00 08/28/24 09:20 Calcitriol 0.25 Mcg Capsule PO 0.25 mcg MoWeFr@0900 ANGELA Administration Docusate Sodium 100 mg 08/20/24 21:47 Docusate Sodium 100 Mg Capsule PO Q12H PRN constipation Famotidine 20 mg 08/20/24 22:05 08/29/24 17:22 Famotidine 20 Mg Tablet PO 20 mg BID ANGELA Administration Fluticasone Propionate 1 spray 08/21/24 09:00 08/29/24 10:00 Fluticasone Propionate 0.05% Na Spr 16 Gm Btl (*Bkc) NASAL 1 spray DAILY ANGELA Administration Gabapentin 400 mg 08/27/24 17:00 08/29/24 17:22 Gabapentin 400 Mg Capsule PO 400 mg TID ANGELA Administration Hydromorphone HCl 1 mg 08/25/24 16:16 08/29/24 14:31 Hydromorphone Hcl Inj (*Crx) 2 Mg/Ml Vial IV PUSH 1 mg Q2H PRN Administration Breakthrough Pain Rated 7-10 or NPO Hydromorphone HCl 0.5 mg 08/25/24 16:17 08/28/24 03:17 Hydromorphone Hcl Inj (*Crx) 2 Mg/Ml Vial IV PUSH 0.5 mg Q2H PRN Administration Breakthrough Pain Rated 4-6 or NPO Ibuprofen 400 mg/ Sodium 104 mls @ 208 mls/hr 08/26/24 15:46 08/28/24 12:29 Chloride IVPB Infused Q6H PRN Infusion Breakthrough Pain Levothyroxine Sodium 200 mcg 08/21/24 06:30 08/30/24 05:39 Levothyroxine Sodium 100 Mcg Tablet PO 200 mcg DAILY@0630 ANEGLA Administration Loratadine 10 mg 08/22/24 10:05 08/29/24 10:01 Loratadine 10 Mg Tablet PO 10 mg DAILY ANGELA Administration Metolazone 5 mg 08/21/24 09:00 08/29/24 10:01 Metolazone 5 Mg Tablet PO 5 mg DAILY ANGELA Administration Metoprolol Tartrate 50 mg 08/20/24 22:05 08/29/24 20:23 Metoprolol Tartrate 50 Mg Tab PO 50 mg Q12HR ANGELA Administration Minoxidil 2.5 mg 08/21/24 09:00 08/29/24 10:01 Minoxidil 2.5 Mg Tablet PO 2.5 mg DAILY ANGELA Administration Multi-Ingred Cream/Lotion/Oil/Oint 1 applic 08/21/24 09:00 08/29/24 17:23 Eucerin Cream 454 Gm Jar TOPICAL 1 applic BID ANGELA Administration Mupirocin 1 applic 08/27/24 21:00 08/29/24 20:23 Mupirocin 2% Oint 22 Gm Tube EACH NARE 09/01/24 09:01 1 applic Q12HR ANGELA Administration Naloxone HCl 0.1 mg 08/25/24 16:14 Naloxone Hcl 0.4 Mg/Ml Vial IV PUSH Q2M PRN Opiate Reversal Ondansetron HCl 4 mg 08/27/24 14:12 08/27/24 17:08 Ondansetron Inj 4 Mg/2 Ml Vial IV PUSH 4 mg Q4H PRN Administration Nausea And Vomiting Oxycodone/Acetaminophen 1 tablet 08/25/24 16:14 08/29/24 20:23 Oxycodone/Acetaminophen (*Crx) 5-325 Mg Tablet PO 1 tablet Q4H PRN Administration Pain Rated 4-6 Oxycodone/Acetaminophen 1 tab 08/25/24 16:14 08/29/24 06:31 Oxycodone/Acetaminophen (*Crx) 10-325 Mg Tablet PO 1 tab Q6H PRN Administration Pain Rated 7-10 Polyethylene Glycol 17 gm 08/22/24 10:05 08/29/24 10:03 Polyethylene Glycol 3350 17 Gm Powd.Pack PO 17 gm DAILY ANGELA Administration Potassium Chloride 10 meq 08/20/24 22:04 Potassium Chloride 10 Meq Er Tablet PO DAILY PRN leg cramping Promethazine HCl 12.5 mg 08/20/24 16:16 Promethazine Hcl 25 Mg/Ml Ampul IV PUSH Q6H PRN Nausea Spironolactone 25 mg 08/21/24 09:00 08/29/24 10:02 Spironolactone 25 Mg Tablet PO 25 mg DAILY ANGELA Administration Tamsulosin HCl 0.4 mg 08/21/24 09:00 08/29/24 10:01 Tamsulosin Hcl 0.4 Mg Capsule PO 0.4 mg QAM ANGELA Administration Radiology Results: ITS Impressions Ankle X-Ray 08/20/24 12:55 IMPRESSION: Lucency over the right lateral malleolus. Follow-up advised. 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 Tibia/Fibula X-Ray 08/20/24 13:03 IMPRESSION: No definite acute osseous abnormality right leg. Lucencies in the area of the medial and lateral malleoli which may be summation shadows. Clinical correlation and follow-up advised.. Foot X-Ray 08/20/24 13:07 Impression: Extensive soft tissue swelling. No definite evidence for osteomyelitis. Labs Labs: Laboratory Results - last 24 hr 08/30/24 05:44 WBC 9.9 RBC 3.20 L Hgb 8.3 L Hct 28.9 L MCV 90.3 MCH 25.9 L MCHC 28.7 L RDW 15.2 H Plt Count 297 MPV 10.1 Immature Gran % (Auto) 0.5 Neut % (Auto) 78.0 H Lymph % (Auto) 5.4 L [place] % (Auto) 13.0 H Eos % (Auto) 2.4 Baso % (Auto) 0.7 Lymph # (Auto) 0.53 L [place] # (Auto) 1.3 H Eos # (Auto) 0.2 Baso # (Auto) 0.1 Abs Immat Gran (auto) 0.05 H Absolute Neuts (auto) 7.7 H Absolute Nucleated RBC 0.000 Band Neutrophils % Not Reportable Nucleated RBC % 0.0 Platelet Estimate Adequate Hypochromasia 1+ Ovalocytes 1+ Schistocytes None seen Sodium 132 L Potassium 4.2 Chloride 84 L Carbon Dioxide > 40 H Anion Gap BUN 69 H Creatinine 1.98 H Estim Creat Clear Calc 45 Estimated GFR 33 L Glucose 101 Calcium 9.2 Total Bilirubin 0.4 AST 44 ALT 18 Alkaline Phosphatase 58 Total Protein 6.0 L Albumin 3.0 L Quality VTE Prophylaxis VTE prophylaxis: pharmacologic ordered
[2024-08-30] MEDS: allopurinoL 100 MG TABLET PO (09:55)
[2024-08-30] MEDS: FAMOTIDINE 20 MG TABLET PO ×2 (09:55→16:59)
[2024-08-30] MEDS: polyethylene glycoL 3350 17 GM POWD.PACK PO (09:55)
[2024-08-30] MEDS: TAMSULOSIN HCL 0.4 MG CAPSULE PO (09:55)
[2024-08-30] MEDS: METOPROLOL TARTRATE 50 MG TAB PO ×2 (09:55→20:23)
[2024-08-30] MEDS: minoxidiL 2.5 MG TABLET PO (09:55)
[2024-08-30] MEDS: GABAPENTIN 400 MG CAPSULE PO (09:55)
[2024-08-30] MEDS: metOLazone 5 MG TABLET PO (09:56)
[2024-08-30] MEDS: SPIRONOLACTONE 25 MG TABLET PO (09:56)
[2024-08-30] MEDS: LORATADINE 10 MG TABLET PO (09:56)
[2024-08-30] MEDS: APIXABAN 5 MG TABLET PO ×2 (09:56→20:23)
[2024-08-30] MEDS: FLUTICASONE PROPIONATE 0.05% NA SPR 16 GM BTL (*BKC) 1 SPRAY NASAL (09:57)
[2024-08-30] MEDS: MUPIROCIN 2% OINT 22 GM TUBE 1 APPLIC EACH NARE ×2 (09:57→20:25)
[2024-08-30] MEDS: EUCERIN CREAM 454 GM JAR 1 APPLIC TOPICAL ×2 (09:57→16:59)
[2024-08-30 10:32] LABS: Sodium Urine Random 89 meq/L
--- NOTE | 2024-08-30 11:35 | PCOTNOTE ---
Attempted to see Patient at this time. Patient stated he can not tolerate activity until he has something for pain. Therapist informed RN, she will address and therapist will attempt again at a later time.
[2024-08-30] MEDS: GABAPENTIN 300 MG CAPSULE PO ×2 (13:03→16:59)
[2024-08-30] MEDS: oxyCODONE/ACETAMINOPHEN (*CRX) 10-325 MG TABLET 1 TAB PO (13:18)
[2024-08-31] VITALS (9 sets, daily range): BP systolic 122–124; BP diastolic 52–63; PULSE 76–88; RESP 18; TEMP 36.8–37.5; O2SAT 91–98
[2024-08-31] MEDS: LEVOTHYROXINE SODIUM 100 MCG TABLET 200 MCG PO (05:25)
[2024-08-31] MEDS: BUMETANIDE 1 MG TABLET PO ×3 (05:26→13:00)
[2024-08-31 05:51] LABS: Basophils Absolute Auto 0.1 K/mm3 (0.0-0.1); Basophils Percent Auto 0.8 % (0.2-1.2); Eosinophils Absolute Auto 0.3 K/mm3 (0-0.3); Eosinophils Percent Auto 3.7 % (0-4.4); Hematocrit 27.8 % (42.0-52.0); Immature Granulocyte Absolute 0.05 K/mm3 (0.00-0.031); Immature Granulocyte Percent A 0.6 % (0-0.5); Lymphocytes Absolute Auto 0.55 K/mm3 (0.9-3.2); Lymphocytes Percent Auto 6.2 % (18.3-44.2); Mean Corpuscular HGB Conc 28.8 g/dl (32-36); Mean Corpuscular Hemoglobin 25.7 pg (26-34); Mean Corpuscular Volume 89.4 fl (80-100); Mean Platelet Volume 10.7 fl (7.4-10.4); Neutrophils Absolute Auto 6.9 K/mm3 (1.3-6.7); Neutrophils Percent Auto 77.7 % (45.5-73.1); Platelet Count Result 352 k/mm3 (150-375); Red Blood Count 3.11 M/mm3 (4.6-6.20); Red Cell Distribution Width 15.2 % (11.5-14.5); White Blood Count 8.9 K/mm3 (4.5-10.0)
[2024-08-31 06:02] LABS: Alanine Aminotransferase 25 U/L (6-50); Albumin Level 3.1 g/dL (3.5-5.1); Alkaline Phosphatase 50 U/L (38-126); Aspartate Amino Transferase 59 U/L (17-59); Bilirubin,Total 0.6 mg/dL (0.2-1.3); Blood Urea Nitrogen 72 mg/dL (9-20); Calcium 8.8 mg/dL (8.4-10.2); Carbon Dioxide > 40 mmol/L (22-30); Chloride 82 mmol/L (98-107); Estimated CRCL calculation 52 ml/min; Estimated Glomerular Filt Rate 41; Glucose 107 mg/dL (65-110); Sodium 130 mmol/L (137-145)
[2024-08-31 06:44] LABS: Hypochromasia 1+; Platelet Estimate Adequate (Adequate); Schistocytes None Seen
[2024-08-31] MEDS: TAMSULOSIN HCL 0.4 MG CAPSULE PO (09:15)
[2024-08-31] MEDS: METOPROLOL TARTRATE 50 MG TAB PO ×2 (09:15→20:34)
[2024-08-31] MEDS: APIXABAN 5 MG TABLET PO ×2 (09:17→20:34)
[2024-08-31] MEDS: allopurinoL 100 MG TABLET PO (09:17)
[2024-08-31] MEDS: GABAPENTIN 300 MG CAPSULE PO ×3 (09:17→17:51)
[2024-08-31] MEDS: FAMOTIDINE 20 MG TABLET PO ×2 (09:17→17:51)
[2024-08-31] MEDS: LORATADINE 10 MG TABLET PO (09:17)
[2024-08-31] MEDS: metOLazone 5 MG TABLET PO (09:17)
[2024-08-31] MEDS: minoxidiL 2.5 MG TABLET PO (09:17)
[2024-08-31] MEDS: FLUTICASONE PROPIONATE 0.05% NA SPR 16 GM BTL (*BKC) 1 SPRAY NASAL (09:17)
[2024-08-31] MEDS: SPIRONOLACTONE 25 MG TABLET PO (09:17)
[2024-08-31] MEDS: EUCERIN CREAM 454 GM JAR 1 APPLIC TOPICAL ×2 (09:18→17:52)
[2024-08-31] MEDS: MUPIROCIN 2% OINT 22 GM TUBE 1 APPLIC EACH NARE ×2 (09:19→20:35)
[2024-08-31] MEDS: polyethylene glycoL 3350 17 GM POWD.PACK PO (09:19)
[2024-08-31] MEDS: calcitrioL 0.25 MCG CAPSULE PO (09:24)
[2024-08-31] MEDS: oxyCODONE/ACETAMINOPHEN (*CRX) 10-325 MG TABLET 1 TAB PO (09:49)
--- NOTE | 2024-08-31 09:49 | P.PNGS_ITS ---
Progress Note: A&P Assessment and Plan (1) Cellulitis of right foot: Code(s): L03.115 - Cellulitis of right lower limb Status: Acute Assessment and Plan: * Continue ramone wrap for compression and daily dressing changes. * Continue knee immobilizer * Continue PT/OT * Patient stable for discharge from our standpoint. He can follow-up with Dr. Malone in our office in 2-3 weeks. (2) Venous stasis ulcer of right foot: Code(s): I83.015 - Varicose veins of right lower extremity with ulcer other part of foot Status: Acute (3) Lymphedema of both lower extremities: Code(s): I89.0 - Lymphedema, not elsewhere classified Status: Acute (4) Atrial fibrillation: Qualifiers: Atrial fibrillation type: longstanding persistent Qualified Code(s): I48.11 - Longstanding persistent atrial fibrillation Code(s): I48.91 - Unspecified atrial fibrillation Status: Chronic Assessment and Plan: * Eliquis resumed Plan I have discussed the patient's case and plan of care with Dr. Malone. Subjective Subjective Date/Time Seen: 08/31/24 09:49 Interval history: Patient is still having a significant amount of pain at his right BKA. He has been sticking to oral pain medication. He is not having any vomiting, but does have some nausea at times. He is eating better. He is working with therapy. Exam Const: General: comfortable and no acute distress Extrem: Other: Right BKA incision intact, slight skin separation in the center of the incision, some dark areas of skin just at the edge of the lateral and medial aspect of the incision, minimal serosanguineous drainage. No significant bleeding. Mild edema, improved from last week. Objective Data Vital Signs Vital Signs: Vital Signs - 24 hr 08/30/24 09:55 08/30/24 10:00 08/30/24 14:00 Temperature 97.7 F Pulse Rate 102 H 86 Respiratory Rate 18 Blood Pressure 119/52 L Pulse Oximetry 99 100 Oxygen Delivery Room Air Oxygen Flow Rate 08/30/24 20:23 08/30/24 21:19 08/30/24 22:29 Temperature 98.0 F Pulse Rate 80 78 83 Respiratory Rate 18 Blood Pressure 121/56 L Pulse Oximetry 98 95 Oxygen Delivery CPAP Oxygen Flow Rate 08/30/24 22:29 08/31/24 01:50 08/31/24 05:05 Temperature 98.2 F Pulse Rate 83 76 80 Respiratory Rate 18 Blood Pressure 124/52 L Pulse Oximetry 95 94 97 Oxygen Delivery CPAP CPAP Oxygen Flow Rate 4 08/31/24 09:15 Temperature Pulse Rate 82 Respiratory Rate Blood Pressure Pulse Oximetry Oxygen Delivery Oxygen Flow Rate Intake/Output Intake/Output: Intake & Output 08/28/24 08/29/24 08/30/24 08/31/24 23:59 23:59 23:59 23:59 Intake Total 4501 3140 1590 558 Output Total 4550 2350 4700 1600 Balance -49 913 -0197 -9301 Meds/Results Medications: Active Medications Generic Name Dose Route Start Last Admin Trade Name Freq PRN Reason Stop Dose Admin Acetaminophen 650 mg 08/20/24 16:16 08/28/24 17:31 Acetaminophen 325 Mg Tablet PO 650 mg Q4H PRN Administration Mild Pain (1-3) or Fever Allopurinol 100 mg 08/21/24 09:00 08/31/24 09:17 Allopurinol 100 Mg Tablet PO 100 mg DAILY ANGELA Administration Apixaban 5 mg 08/20/24 22:05 08/31/24 09:17 Apixaban 5 Mg Tablet PO 5 mg Q12HR ANGELA Administration Bumetanide 1 mg 08/23/24 14:00 08/31/24 09:24 Bumetanide 1 Mg Tablet PO 1 mg TID@0600,1000,1400 ANGELA Administration Calcitriol 0.25 mcg 08/21/24 09:00 08/31/24 09:24 Calcitriol 0.25 Mcg Capsule PO 0.25 mcg MoWeFr@0900 ANGELA Administration Docusate Sodium 100 mg 08/20/24 21:47 Docusate Sodium 100 Mg Capsule PO Q12H PRN constipation Famotidine 20 mg 08/20/24 22:05 08/31/24 09:17 Famotidine 20 Mg Tablet PO 20 mg BID ANGELA Administration Fluticasone Propionate 1 spray 08/21/24 09:00 08/31/24 09:17 Fluticasone Propionate 0.05% Na Spr 16 Gm Btl (*Bkc) NASAL 1 spray DAILY ANGELA Administration Gabapentin 300 mg 08/30/24 13:00 08/31/24 09:17 Gabapentin 300 Mg Capsule PO 300 mg TID ANGELA Administration Hydromorphone HCl 1 mg 08/25/24 16:16 08/29/24 14:31 Hydromorphone Hcl Inj (*Crx) 2 Mg/Ml Vial IV PUSH 1 mg Q2H PRN Administration Breakthrough Pain Rated 7-10 or NPO Hydromorphone HCl 0.5 mg 08/25/24 16:17 08/28/24 03:17 Hydromorphone Hcl Inj (*Crx) 2 Mg/Ml Vial IV PUSH 0.5 mg Q2H PRN Administration Breakthrough Pain Rated 4-6 or NPO Ibuprofen 400 mg/ Sodium 104 mls @ 208 mls/hr 08/26/24 15:46 08/28/24 12:29 Chloride IVPB Infused Q6H PRN Infusion Breakthrough Pain Levothyroxine Sodium 200 mcg 08/21/24 06:30 08/31/24 05:25 Levothyroxine Sodium 100 Mcg Tablet PO 200 mcg DAILY@0630 ANGELA Administration Loratadine 10 mg 08/22/24 10:05 08/31/24 09:17 Loratadine 10 Mg Tablet PO 10 mg DAILY ANGELA Administration Metolazone 5 mg 08/21/24 09:00 08/31/24 09:17 Metolazone 5 Mg Tablet PO 5 mg DAILY ANGELA Administration Metoprolol Tartrate 50 mg 08/20/24 22:05 08/31/24 09:15 Metoprolol Tartrate 50 Mg Tab PO 50 mg Q12HR ANGELA Administration Minoxidil 2.5 mg 08/21/24 09:00 08/31/24 09:17 Minoxidil 2.5 Mg Tablet PO 2.5 mg DAILY ANGELA Administration Multi-Ingred Cream/Lotion/Oil/Oint 1 applic 08/21/24 09:00 08/31/24 09:18 Eucerin Cream 454 Gm Jar TOPICAL 1 applic BID ANGELA Administration Mupirocin 1 applic 08/27/24 21:00 08/31/24 09:19 Mupirocin 2% Oint 22 Gm Tube EACH NARE 09/01/24 09:01 1 applic Q12HR ANGELA Administration Naloxone HCl 0.1 mg 08/25/24 16:14 Naloxone Hcl 0.4 Mg/Ml Vial IV PUSH Q2M PRN Opiate Reversal Ondansetron HCl 4 mg 08/27/24 14:12 08/27/24 17:08 Ondansetron Inj 4 Mg/2 Ml Vial IV PUSH 4 mg Q4H PRN Administration Nausea And Vomiting Oxycodone/Acetaminophen 1 tablet 08/25/24 16:14 08/29/24 20:23 Oxycodone/Acetaminophen (*Crx) 5-325 Mg Tablet PO 1 tablet Q4H PRN Administration Pain Rated 4-6 Oxycodone/Acetaminophen 1 tab 08/25/24 16:14 08/30/24 13:18 Oxycodone/Acetaminophen (*Crx) 10-325 Mg Tablet PO 1 tab Q6H PRN Administration Pain Rated 7-10 Polyethylene Glycol 17 gm 08/22/24 10:05 08/31/24 09:19 Polyethylene Glycol 3350 17 Gm Powd.Pack PO 17 gm DAILY ANGELA Administration Potassium Chloride 10 meq 08/20/24 22:04 Potassium Chloride 10 Meq Er Tablet PO DAILY PRN leg cramping Promethazine HCl 12.5 mg 08/20/24 16:16 Promethazine Hcl 25 Mg/Ml Ampul IV PUSH Q6H PRN Nausea Spironolactone 25 mg 08/21/24 09:00 08/31/24 09:17 Spironolactone 25 Mg Tablet PO 25 mg DAILY ANGELA Administration Tamsulosin HCl 0.4 mg 08/21/24 09:00 08/31/24 09:15 Tamsulosin Hcl 0.4 Mg Capsule PO 0.4 mg QAM ANGELA Administration Radiology Results: ITS Impressions Ankle X-Ray 08/20/24 12:55 IMPRESSION: Lucency over the right lateral malleolus. Follow-up advised. 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 Tibia/Fibula X-Ray 08/20/24 13:03 IMPRESSION: No definite acute osseous abnormality right leg. Lucencies in the area of the medial and lateral malleoli which may be summation shadows. Clinical correlation and follow-up advised.. Foot X-Ray 08/20/24 13:07 Impression: Extensive soft tissue swelling. No definite evidence for osteomyelitis. Labs Labs: Laboratory Results - last 24 hr 08/30/24 08/31/24 10:21 05:37 WBC 8.9 RBC 3.11 L Hgb 8.0 L Hct 27.8 L MCV 89.4 MCH 25.7 L MCHC 28.8 L RDW 15.2 H Plt Count 352 MPV 10.7 H Immature Gran % (Auto) 0.6 H Neut % (Auto) 77.7 H Lymph % (Auto) 6.2 L [place] % (Auto) 11.0 H Eos % (Auto) 3.7 Baso % (Auto) 0.8 Lymph # (Auto) 0.55 L [place] # (Auto) 1.0 H Eos # (Auto) 0.3 Baso # (Auto) 0.1 Abs Immat Gran (auto) 0.05 H Absolute Neuts (auto) 6.9 H Absolute Nucleated RBC 0.000 Band Neutrophils % Not Reportable Nucleated RBC % 0.0 Platelet Estimate Adequate Hypochromasia 1+ Schistocytes None seen Sodium 130 L Potassium 4.0 Chloride 82 L Carbon Dioxide > 40 H Anion Gap BUN 72 H Creatinine 1.66 H Estim Creat Clear Calc 52 Estimated GFR 41 L Glucose 107 Calcium 8.8 Total Bilirubin 0.6 AST 59 ALT 25 Alkaline Phosphatase 50 Total Protein 6.0 L Albumin 3.1 L Ur Random Sodium 89
--- NOTE | 2024-08-31 11:45 | PCNFU ---
Nutrition Follow-Up Complete: Suboptimal po intake related to reduced appetite as evidenced by pt and nursing reports PO intake improved to 50% or greater - Slowly progressing with goal. Intakes 25-100% last 48 hours. Continue with same goal Goal: Pt current nutrition is Heart healthy diet. Ensure Enlive QID (350 kcal, 20 g protein each). Nutrition recommendation: No new recommendations. Continue current nutrition care plan and orders. Agree with orders Last recorded weight is 145.7 kg. Bowel Motility: +1 BM 08/28/24 Labs Reviewed: Hgb 8.0, Hct 27.8, Alb 3.1, Na 130, BUN 72, Cre 1.66 Meds Noted: Metolazone, bumex, zofran Skin: R BKA 08/25/24 Additional Notes: Still having some nausea but appetite is better. Discharge planning to rehab. Continue with current nutrition care plan. Monitor intake, wt, labs. Follow up in 3 days.
--- NOTE | 2024-08-31 13:28 | PM.IMPN ---
Progress Note: A&P Assessment and Plan (1) Venous stasis ulcer of right foot: Code(s): I83.015 - Varicose veins of right lower extremity with ulcer other part of foot Status: Acute Assessment and Plan: - ankle XR: Lucency over the right lateral malleolus. Follow-up advised. 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 - tib fib XR: No definite acute osseous abnormality right leg. Lucencies in the area of the medial and lateral malleoli which may be summation shadows. Clinical correlation and follow-up advised.. - foot XR: Extensive soft tissue swelling. No definite evidence for osteomyelitis. - started on Levaquin and Flagyl on 08/20/2024. Reviewed micro and patient has history of Pseudomonas and Staph with multiple resistances in March of 2024. Previously placed on meropenem after case was reviewed with ID pharmacist during the patient's most recent admission in May of 2024. Will place patient back on meropenem as well as vancomycin and obtain wound culture. - wound RN consulted. Recommendations: daily cleanse right lower leg and foot by the 5th toe, apply antifungal powder to open weeping maceration areas. place ABD pads and roll gauze cover if patient allows, if not place nito pads under and over foot and leg to control exudate and change daily and PRN if heavily soiled. -Surgery consulted, plan for a below-knee amputation of the right leg, added to surgery schedule for 08/25. HOLD Eliquis. DVT prophylaxis Lovenox 40 mg subq daily. -Blood cultures no growth to date. -Right BKA performed 08/25, continue pain control -Surgery following, per note 08/31: Continue ramone wrap for compression and daily dressing changes. Continue knee immobilizer Continue PT/OT Patient stable for discharge from our standpoint. He can follow-up with Dr. Malone in our office in 2-3 weeks. Plan for D/C tomorrow, 09/01, pending stable lab work -->Apixaban restarted 5/30 AM -->Surgery added on low dose ibuprofen to see if would help with pain as well, using this PRN -->Increased gabapentin 300 TID to 400 TID to see if this also helps with pain, will continue to trend kidney levels daily with these medications ---->Decreased back to original dosage for kidney preservation due to adequate pain control with other meds -->Abx have been stopped, WBC WDL -->Pt started PT/OT on 08/28, will continue with ultimate plans for D/C to rehab (2) Peripheral vascular disease: Code(s): I73.9 - Peripheral vascular disease, unspecified Status: Acute Assessment and Plan: - Follows with Chris DE LEON with vascular surgery. Reportedly told at most recent visit on XX that there were no further interventions to increased blood flow to his affected extremity as the disease is below the knee. (3) CHF (congestive heart failure): Qualifiers: Heart failure chronicity: chronic Heart failure type: diastolic Qualified Code(s): I50.32 - Chronic diastolic (congestive) heart failure Code(s): I50.9 - Heart failure, unspecified Status: Chronic Assessment and Plan: - echo, previous: Estimated EF 65-70%, grade 1 diastolic dysfunction. Technically difficult echo. See report for details. - continue home medications: Bumex (adjusting administration times to help patient get improved sleep), metolazone, spironolactone. Hold Diamox, contraindicated in CKD stage 4. - Pt continues to deny SOB/CP/abnormal swelling - monitor I&Os daily weights, 145.7 kg today (4) Atrial fibrillation: Qualifiers: Atrial fibrillation type: longstanding persistent Qualified Code(s): I48.11 - Longstanding persistent atrial fibrillation Code(s): I48.91 - Unspecified atrial fibrillation Status: Chronic Assessment and Plan: - Continue home medications: Eliquis and Metoprolol. - Eliquis restarted 08/28 am - Last dose of Lovenox 40 mg subq 08/27 PM (5) Chronic anemia: Code(s): D64.9 - Anemia, unspecified Status: Acute Assessment and Plan: - Hgb 8.0, previously 8.4 on 05/19/2024. At baseline. - Transfuse if <7. - Continue with daily labs (6) CKD (chronic kidney disease) stage 3, GFR 30-59 ml/min: Qualifiers: Chronic kidney disease stage 3 subtype: stage 3b (GFR 30-44) Qualified Code(s): N18.32 - Chronic kidney disease, stage 3b Code(s): N18.3 - Chronic kidney disease, stage 3 (moderate) Status: Acute Assessment and Plan: Chronic, watching closely due to the addition of ibuprofen and increase of gabapentin for pain control - Ibuprofen strictly used for PRN basis only, went back to original gabapentin dosage of 300mg TID for kidney preservation since pain is more controlled now - creatinine 1.66 and GFR 41, previously 2.23 and GFR 29 on 05/19/2024 - trend renal function - trend electrolytes, correct as needed (7) Essential (primary) hypertension: Code(s): I10 - Essential (primary) hypertension Status: Chronic Assessment and Plan: - Chronic, currently 122/63 - Continue home medications: Metoprolol - Continue to monitor (8) AMELIA (obstructive sleep apnea): Code(s): G47.33 - Obstructive sleep apnea (adult) (pediatric) Status: Acute Assessment and Plan: - continue home CPAP (9) Hyponatremia: Code(s): E87.1 - Hypo-osmolality and hyponatremia Status: Acute Assessment and Plan: Appears to be chronic, continue to trend labs and encourage diet, asymptomatic -Added urine os (pending), serum os (pending), and urine sodium (WDL) -Starting 6/2 pt reporting hand cramps, states he gets these at home when he does not take his sodium pills. -->Started on sodium chl tabs today BID, will continue to trend labs Plan D/c tomorrow to [facility] Subjective Date/time seen: 08/31/24 13:05 Interval history: Pt presented to the ED on 08/20 for chronic (3 yrs) R foot wound with increased erythema, edema, and malodorous smell x 1 week. Hx of PVD, gout, chronic lymphedema of the BLE, chronic anemia, AMELIA, AFib, rosacea, GERD, CHF, dyslipidemia, hypertension, peripheral polyneuropathy, and hypothyroidism. Pt sees outpt vasc at [facility] (Dr. Daniels) with no plans for procedure to increase vacular flow to leg. Recent admission here for similar sx in May 2024 and was D/C with wound care daily. ED workup showed: No leukocytosis, hemoglobin 9.5 (at baseline), sodium 133 (at baseline), creatinine 2.48 and GFR 26 (previously 2.23 and GFR 29 on 05/19/2024). Ankle XR showed a lucency over the right lateral malleolus and osteoarthritic changes the ankle and subtalar joints. Tib/fib XR showed no definite acute osseous abnormality of the right leg and lipases in the area of the medial and lateral malleoli which may be summation shadows. Foot XR showed extensive soft tissue swelling and no definite evidence of osteomyelitis. R BKA was ultimately performed on 08/26 via surgery. Today when assessed, pt in a moderate amount of pain to his RLE but assessed him after surgery performed dressing change. Surgical team and this marketing copywriter discussed with the pt the importance of trailing his oral pain medication. He states that his nephew called and told him that he has oxycodone and hydrocodone at home and he thinks that he has tolerated those in the past, oxy ordered by surgery. 08/30: Pt continues to report that his pain is mildly better today and believes that we are on the right track with his pain management, he continues to tolerate his oral Percocet. Denies any other sx at this time including SOB, CP. He first day of OT/PT was on 08/28. Surgery to continue to follow with RN performing dressing changes. Plan for rehab D/C in the near future pending surgical & therapy sign off. 08/31: Pt continues to report pain but most often with movement, he states that the oral pain meds are otherwise controlling the pain. Pt continuing to try to eat more, he does not enjoy the food here. Pt's sodium continues to be mildly low and pt is experiencing some hand cramps. He did tell me today that this is normal for him, and that he takes sodium tabs at home, ordered those for BID today, will continue to trend in the AM. Will continue these at D/C. [facility] pt with probable D/C tomorrow. Review of Systems Review of Systems: All systems reviewed & are unremarkable except as noted in HPI and below Exam Const: General: comfortable, no acute distress, in distress and uncomfortable Other: , male, obese body habitus, nontoxic appearance HENMT: Face/Nose/Sinus: Normal nares present Mouth: Yes moist mucous membranes Eyes: General: appearance normal, both eyes and all related structures Sclera: sclerae normal Neck: Neck: supple and no JVD Carotids: no bruits Resp: Effort & Inspection: normal respiratory effort Auscultation: clear to auscultation bilaterally Other: Speaking in complete sentences. Cardio: Rate: regular rate Rhythm: regular rhythm Other: S1-S2 present without murmur, rub, ectopy GI: Auscultation: normal bowel sounds Other: Abdomen soft, nondistended, nontender. Normoactive bowel sounds in all quadrants. : Male General Exam: Yes normal external exam Urinary Catheter: Urinary Catheter: patent and draining and urine clear Skin: General skin exam: normal color Other: RLE BKA ramone wrap dressing C/D/I with knee immobilizer applied Back side continues to be pressure injury free Neuro: Cranial nerves: Yes Equal, round and reactive pupils present Speech: normal speech Motor exam (neuro): 5/5 motor strength present throughout and Normal motor muscle tone present throughout Sensory Exam: normal sensation Other: A&O x4 Extrem: Other: LLE with chronic lymphedema and venous stasis dermatitis. Cream applied. See skin. Psych: Mental Status: mental status grossly normal Affect: normal affect Other: Good insight and judgment, very pleasant Objective Data Vital Signs Vital Signs: Vital Signs - 24 hr 08/30/24 14:00 08/30/24 20:23 08/30/24 21:19 Temperature 97.7 F 98.0 F Pulse Rate 86 80 78 Respiratory Rate 18 18 Blood Pressure 119/52 L 121/56 L Pulse Oximetry 100 98 Oxygen Delivery Oxygen Flow Rate 08/30/24 22:29 08/30/24 22:29 08/31/24 01:50 Temperature Pulse Rate 83 83 76 Respiratory Rate Blood Pressure Pulse Oximetry 95 95 94 Oxygen Delivery CPAP CPAP CPAP Oxygen Flow Rate 4 08/31/24 05:05 08/31/24 09:15 Temperature 98.2 F Pulse Rate 80 82 Respiratory Rate 18 Blood Pressure 124/52 L Pulse Oximetry 97 Oxygen Delivery Oxygen Flow Rate Intake/Output Intake/Output: Intake & Output 08/28/24 08/29/24 08/30/24 08/31/24 23:59 23:59 23:59 23:59 Intake Total 4501 3140 1590 558 Output Total 4550 2350 4700 2450 Balance -49 489 -6354 -3308 Meds/Results Medications: Active Medications Generic Name Dose Route Start Last Admin Trade Name Freq PRN Reason Stop Dose Admin Acetaminophen 650 mg 08/20/24 16:16 08/28/24 17:31 Acetaminophen 325 Mg Tablet PO 650 mg Q4H PRN Administration Mild Pain (1-3) or Fever Allopurinol 100 mg 08/21/24 09:00 08/31/24 09:17 Allopurinol 100 Mg Tablet PO 100 mg DAILY ANGELA Administration Apixaban 5 mg 08/20/24 22:05 08/31/24 09:17 Apixaban 5 Mg Tablet PO 5 mg Q12HR ANGELA Administration Bumetanide 1 mg 08/23/24 14:00 08/31/24 13:00 Bumetanide 1 Mg Tablet PO 1 mg TID@0600,1000,1400 ANGELA Administration Calcitriol 0.25 mcg 08/21/24 09:00 08/31/24 09:24 Calcitriol 0.25 Mcg Capsule PO 0.25 mcg MoWeFr@0900 ANGELA Administration Docusate Sodium 100 mg 08/20/24 21:47 Docusate Sodium 100 Mg Capsule PO Q12H PRN constipation Famotidine 20 mg 08/20/24 22:05 08/31/24 09:17 Famotidine 20 Mg Tablet PO 20 mg BID ANGELA Administration Fluticasone Propionate 1 spray 08/21/24 09:00 08/31/24 09:17 Fluticasone Propionate 0.05% Na Spr 16 Gm Btl (*Bkc) NASAL 1 spray DAILY ANGELA Administration Gabapentin 300 mg 08/30/24 13:00 08/31/24 12:59 Gabapentin 300 Mg Capsule PO 300 mg TID ANGELA Administration Hydromorphone HCl 1 mg 08/25/24 16:16 08/29/24 14:31 Hydromorphone Hcl Inj (*Crx) 2 Mg/Ml Vial IV PUSH 1 mg Q2H PRN Administration Breakthrough Pain Rated 7-10 or NPO Hydromorphone HCl 0.5 mg 08/25/24 16:17 08/28/24 03:17 Hydromorphone Hcl Inj (*Crx) 2 Mg/Ml Vial IV PUSH 0.5 mg Q2H PRN Administration Breakthrough Pain Rated 4-6 or NPO Ibuprofen 400 mg/ Sodium 104 mls @ 208 mls/hr 08/26/24 15:46 08/28/24 12:29 Chloride IVPB Infused Q6H PRN Infusion Breakthrough Pain Levothyroxine Sodium 200 mcg 08/21/24 06:30 08/31/24 05:25 Levothyroxine Sodium 100 Mcg Tablet PO 200 mcg DAILY@0630 ANGELA Administration Loratadine 10 mg 08/22/24 10:05 08/31/24 09:17 Loratadine 10 Mg Tablet PO 10 mg DAILY ANGELA Administration Metolazone 5 mg 08/21/24 09:00 08/31/24 09:17 Metolazone 5 Mg Tablet PO 5 mg DAILY ANGELA Administration Metoprolol Tartrate 50 mg 08/20/24 22:05 08/31/24 09:15 Metoprolol Tartrate 50 Mg Tab PO 50 mg Q12HR ANGELA Administration Minoxidil 2.5 mg 08/21/24 09:00 08/31/24 09:17 Minoxidil 2.5 Mg Tablet PO 2.5 mg DAILY ANGELA Administration Multi-Ingred Cream/Lotion/Oil/Oint 1 applic 08/21/24 09:00 08/31/24 09:18 Eucerin Cream 454 Gm Jar TOPICAL 1 applic BID ANGELA Administration Mupirocin 1 applic 08/27/24 21:00 08/31/24 09:19 Mupirocin 2% Oint 22 Gm Tube EACH NARE 09/01/24 09:01 1 applic Q12HR ANGELA Administration Naloxone HCl 0.1 mg 08/25/24 16:14 Naloxone Hcl 0.4 Mg/Ml Vial IV PUSH Q2M PRN Opiate Reversal Ondansetron HCl 4 mg 08/27/24 14:12 08/27/24 17:08 Ondansetron Inj 4 Mg/2 Ml Vial IV PUSH 4 mg Q4H PRN Administration Nausea And Vomiting Oxycodone/Acetaminophen 1 tablet 08/25/24 16:14 08/29/24 20:23 Oxycodone/Acetaminophen (*Crx) 5-325 Mg Tablet PO 1 tablet Q4H PRN Administration Pain Rated 4-6 Oxycodone/Acetaminophen 1 tab 08/25/24 16:14 08/31/24 09:49 Oxycodone/Acetaminophen (*Crx) 10-325 Mg Tablet PO 1 tab Q6H PRN Administration Pain Rated 7-10 Polyethylene Glycol 17 gm 08/22/24 10:05 08/31/24 09:19 Polyethylene Glycol 3350 17 Gm Powd.Pack PO 17 gm DAILY ANGELA Administration Potassium Chloride 10 meq 08/20/24 22:04 Potassium Chloride 10 Meq Er Tablet PO DAILY PRN leg cramping Promethazine HCl 12.5 mg 08/20/24 16:16 Promethazine Hcl 25 Mg/Ml Ampul IV PUSH Q6H PRN Nausea Spironolactone 25 mg 08/21/24 09:00 08/31/24 09:17 Spironolactone 25 Mg Tablet PO 25 mg DAILY ANGELA Administration Tamsulosin HCl 0.4 mg 08/21/24 09:00 08/31/24 09:15 Tamsulosin Hcl 0.4 Mg Capsule PO 0.4 mg QAM ANGELA Administration Radiology Results: ITS Impressions Ankle X-Ray 08/20/24 12:55 IMPRESSION: Lucency over the right lateral malleolus. Follow-up advised. 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 Tibia/Fibula X-Ray 08/20/24 13:03 IMPRESSION: No definite acute osseous abnormality right leg. Lucencies in the area of the medial and lateral malleoli which may be summation shadows. Clinical correlation and follow-up advised.. Foot X-Ray 08/20/24 13:07 Impression: Extensive soft tissue swelling. No definite evidence for osteomyelitis. Labs Labs: Laboratory Results - last 24 hr 08/31/24 05:37 WBC 8.9 RBC 3.11 L Hgb 8.0 L Hct 27.8 L MCV 89.4 MCH 25.7 L MCHC 28.8 L RDW 15.2 H Plt Count 352 MPV 10.7 H Immature Gran % (Auto) 0.6 H Neut % (Auto) 77.7 H Lymph % (Auto) 6.2 L [place] % (Auto) 11.0 H Eos % (Auto) 3.7 Baso % (Auto) 0.8 Lymph # (Auto) 0.55 L [place] # (Auto) 1.0 H Eos # (Auto) 0.3 Baso # (Auto) 0.1 Abs Immat Gran (auto) 0.05 H Absolute Neuts (auto) 6.9 H Absolute Nucleated RBC 0.000 Band Neutrophils % Not Reportable Nucleated RBC % 0.0 Platelet Estimate Adequate Hypochromasia 1+ Schistocytes None seen Sodium 130 L Potassium 4.0 Chloride 82 L Carbon Dioxide > 40 H Anion Gap BUN 72 H Creatinine 1.66 H Estim Creat Clear Calc 52 Estimated GFR 41 L Glucose 107 Calcium 8.8 Total Bilirubin 0.6 AST 59 ALT 25 Alkaline Phosphatase 50 Total Protein 6.0 L Albumin 3.1 L Quality VTE Prophylaxis VTE prophylaxis: pharmacologic ordered
[2024-08-31] MEDS: SODIUM CHLORIDE 1 GM TABLET PO (17:51)
[2024-09-01 02:18] VITALS: PULSE 72; O2SAT 92
[2024-09-01] MEDS: LEVOTHYROXINE SODIUM 100 MCG TABLET 200 MCG PO (05:44)
[2024-09-01] MEDS: BUMETANIDE 1 MG TABLET PO ×3 (05:44→12:55)
[2024-09-01 06:00] VITALS: BP 121/57; PULSE 79; RESP 16; TEMP 36.4; O2SAT 92
[2024-09-01 07:00] LABS: Basophils Absolute Auto 0.1 K/mm3 (0.0-0.1); Basophils Percent Auto 0.8 % (0.2-1.2); Eosinophils Absolute Auto 0.4 K/mm3 (0-0.3); Hematocrit 28.2 % (42.0-52.0); Immature Granulocyte Percent A 1.1 % (0-0.5); Lymphocytes Absolute Auto 0.51 K/mm3 (0.9-3.2); Lymphocytes Percent Auto 5.5 % (18.3-44.2); Mean Corpuscular HGB Conc 28.4 g/dl (32-36); Mean Corpuscular Hemoglobin 25.7 pg (26-34); Mean Corpuscular Volume 90.7 fl (80-100); Mean Platelet Volume 10.8 fl (7.4-10.4); Monocytes Percent Auto 10.4 % (2.6-8.5); Neutrophils Absolute Auto 7.2 K/mm3 (1.3-6.7); Neutrophils Percent Auto 78.2 % (45.5-73.1); Platelet Count Result 381 k/mm3 (150-375); Red Blood Count 3.11 M/mm3 (4.6-6.20); Red Cell Distribution Width 15.2 % (11.5-14.5); White Blood Count 9.2 K/mm3 (4.5-10.0)
[2024-09-01 07:29] LABS: Alanine Aminotransferase 28 U/L (6-50); Albumin Level 3.1 g/dL (3.5-5.1); Alkaline Phosphatase 68 U/L (38-126); Aspartate Amino Transferase 51 U/L (17-59); Bilirubin,Total 0.4 mg/dL (0.2-1.3); Blood Urea Nitrogen 69 mg/dL (9-20); Calcium 9.1 mg/dL (8.4-10.2); Carbon Dioxide > 40 mmol/L (22-30); Chloride 80 mmol/L (98-107); Estimated CRCL calculation 39 ml/min; Estimated Glomerular Filt Rate 28; Glucose 104 mg/dL (65-110); Potassium 3.9 mmol/L (3.4-5.0); Sodium 133 mmol/L (137-145)
[2024-09-01 08:39] LABS: Platelet Estimate Adequate (Adequate)
[2024-09-01 08:40] LABS: Anisocytosis 1+; Hypochromasia 1+; Schistocytes None Seen
[2024-09-01] MEDS: EUCERIN CREAM 454 GM JAR 1 APPLIC TOPICAL (09:35)
[2024-09-01] MEDS: MUPIROCIN 2% OINT 22 GM TUBE 1 APPLIC EACH NARE (09:35)
[2024-09-01] MEDS: FLUTICASONE PROPIONATE 0.05% NA SPR 16 GM BTL (*BKC) 1 SPRAY NASAL (09:35)
[2024-09-01] MEDS: allopurinoL 100 MG TABLET PO (09:36)
[2024-09-01] MEDS: TAMSULOSIN HCL 0.4 MG CAPSULE PO (09:36)
[2024-09-01] MEDS: metOLazone 5 MG TABLET PO (09:36)
[2024-09-01] MEDS: polyethylene glycoL 3350 17 GM POWD.PACK PO (09:36)
[2024-09-01] MEDS: SODIUM CHLORIDE 1 GM TABLET PO (09:36)
[2024-09-01] MEDS: minoxidiL 2.5 MG TABLET PO (09:37)
[2024-09-01] MEDS: GABAPENTIN 300 MG CAPSULE PO ×2 (09:37→12:55)
[2024-09-01] MEDS: FAMOTIDINE 20 MG TABLET PO (09:37)
[2024-09-01] MEDS: APIXABAN 5 MG TABLET PO (09:37)
[2024-09-01] MEDS: LORATADINE 10 MG TABLET PO (09:37)
[2024-09-01] MEDS: SPIRONOLACTONE 25 MG TABLET PO (09:37)
[2024-09-01 09:39] VITALS: PULSE 102
[2024-09-01] MEDS: METOPROLOL TARTRATE 50 MG TAB PO (09:39)
--- NOTE | 2024-09-01 09:57 | P.DS_ITS ---
DS: Admitting Diagnosis Discharge Date 09/01/2024 Admitting Diagnosis RLE wound with BKA DS: Discharge Diagnosis Discharge Diagnosis (1) Venous stasis ulcer of right foot: Code(s): I83.015 - Varicose veins of right lower extremity with ulcer other part of foot Status: Acute Assessment and Plan: - ankle XR: Lucency over the right lateral malleolus. Follow-up advised. 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 - tib fib XR: No definite acute osseous abnormality right leg. Lucencies in the area of the medial and lateral malleoli which may be summation shadows. Clinical correlation and follow-up advised.. - foot XR: Extensive soft tissue swelling. No definite evidence for osteomyelitis. - started on Levaquin and Flagyl on 08/20/2024. Reviewed micro and patient has history of Pseudomonas and Staph with multiple resistances in March of 2024. Previously placed on meropenem after case was reviewed with ID pharmacist during the patient's most recent admission in May of 2024. Will [address] patient back on meropenem as well as vancomycin and obtain wound culture. - wound RN consulted. Recommendations: daily cleanse right lower leg and foot by the 5th toe, apply antifungal powder to open weeping maceration areas. place ABD pads and roll gauze cover if patient allows, if not place nito pads under and over foot and leg to control exudate and change daily and PRN if heavily soiled. -Surgery consulted, plan for a below-knee amputation of the right leg, added to surgery schedule for 08/25. HOLD Eliquis. DVT prophylaxis Lovenox 40 mg subq daily. -Blood cultures no growth to date. -Right BKA performed 08/25, continue pain control -Surgery following, per note 08/31: * Continue jayesh wrap for compression and daily dressing changes. * Continue knee immobilizer * Continue PT/OT * Patient stable for discharge from our standpoint. He can follow-up with Dr. Malone in our office in 2-3 weeks. -->Apixaban restarted 5/30 AM -->Surgery added on low dose ibuprofen to see if would help with pain as well, using this PRN -->Increased gabapentin 300 TID to 400 TID to see if this also helps with pain, will continue to trend kidney levels daily with these medications ---->Decreased back to original dosage for kidney preservation due to adequate pain control with other meds -->Abx have been stopped, WBC WDL -->Pt started PT/OT on 08/28, will continue with ultimate plans for D/C to rehab Pt to be D/C to [facility] today for rehab, will f/u with gen surgery in 2-3 weeks (2) Peripheral vascular disease: Code(s): I73.9 - Peripheral vascular disease, unspecified Status: Acute Assessment and Plan: - Follows with Chris DE LEON with vascular surgery. Reportedly told at most recent visit on XX that there were no further interventions to increased blood flow to his affected extremity as the disease is below the knee. (3) CHF (congestive heart failure): Qualifiers: Heart failure chronicity: chronic Heart failure type: diastolic Qualified Code(s): I50.32 - Chronic diastolic (congestive) heart failure Code(s): I50.9 - Heart failure, unspecified Status: Chronic Assessment and Plan: - echo, previous: Estimated EF 65-70%, grade 1 diastolic dysfunction. Technically difficult echo. See report for details. - continue home medications: Bumex (adjusting administration times to help patient get improved sleep), metolazone, spironolactone. Hold Diamox, contraindicated in CKD stage 4. - Pt continues to deny SOB/CP/abnormal swelling - monitor I&Os daily weights, 145.5 kg today (4) Atrial fibrillation: Qualifiers: Atrial fibrillation type: longstanding persistent Qualified Code(s): I48.11 - Longstanding persistent atrial fibrillation Code(s): I48.91 - Unspecified atrial fibrillation Status: Chronic Assessment and Plan: - Continue home medications: Eliquis and Metoprolol. - Eliquis restarted 08/28 am - Last dose of Lovenox 40 mg subq 08/27 PM (5) Chronic anemia: Code(s): D64.9 - Anemia, unspecified Status: Acute Assessment and Plan: - Hgb 8.0, previously 8.4 on 05/19/2024. At baseline. - Transfuse if <7. (6) CKD (chronic kidney disease) stage 3, GFR 30-59 ml/min: Qualifiers: Chronic kidney disease stage 3 subtype: stage 3b (GFR 30-44) Qualified Code(s): N18.32 - Chronic kidney disease, stage 3b Code(s): N18.3 - Chronic kidney disease, stage 3 (moderate) Status: Acute Assessment and Plan: Chronic - Ibuprofen d/c today, delia continued outpt for continued pain control - Return to PCP for repeat lab work after today due to slight bump in kidney labs (these continue to align with his baseline) (7) Essential (primary) hypertension: Code(s): I10 - Essential (primary) hypertension Status: Chronic Assessment and Plan: - Chronic, currently 121/57 - Continue home medications: Metoprolol - Continue to monitor at [facility] (8) AMELIA (obstructive sleep apnea): Code(s): G47.33 - Obstructive sleep apnea (adult) (pediatric) Status: Acute Assessment and Plan: - continue home CPAP (9) Hyponatremia: Code(s): E87.1 - Hypo-osmolality and hyponatremia Status: Acute Assessment and Plan: Appears to be chronic, pt updated me on 08/31 that he takes sodium chloride tabs at home -Added urine os (pending), serum os (pending), and urine sodium (WDL) -Starting 08/31 pt reporting hand cramps, states he gets these at home when he does not take his sodium pills. -->Started on sodium chl tabs 09/01 BID, continue his outpt order Plan D/c today to [facility], plan for f/u with gen surg office in 2-3 weeks DS: Summary Hospital Course Reason for hospitalization: RLE wound with BKA Hospital Course: Pt presented to the ED on 08/20 for chronic (3 yrs) R foot wound with increased erythema, edema, and malodorous smell x 1 week. Hx of PVD, gout, chronic lymphedema of the BLE, chronic anemia, AMELIA, AFib, rosacea, GERD, CHF, dyslipidemia, hypertension, peripheral polyneuropathy, and hypothyroidism. Pt sees outpt vasc at [facility] (Dr. Daniels) with no plans for procedure to increase vacular flow to leg. Recent admission here for similar sx in May 2024 and was D/C with wound care daily. ED workup showed: No leukocytosis, hemoglobin 9.5 (at baseline), sodium 133 (at baseline), creatinine 2.48 and GFR 26 (previously 2.23 and GFR 29 on 05/19/2024). Ankle XR showed a lucency over the right lateral malleolus and osteoarthritic changes the ankle and subtalar joints. Tib/fib XR showed no definite acute osseous abnormality of the right leg and lipases in the area of the medial and lateral malleoli which may be summation shadows. Foot XR showed extensive soft tissue swelling and no definite evidence of osteomyelitis. R BKA was ultimately performed on 08/26 via surgery. Today when assessed, pt in a moderate amount of pain to his RLE but assessed him after surgery performed dressing change. Surgical team and this narrative writer discussed with the pt the importance of trailing his oral pain medication. He states that his nephew called and told him that he has oxycodone and hydrocodone at home and he thinks that he has tolerated those in the past, oxy ordered by surgery. 08/30: Pt continues to report that his pain is mildly better today and believes that we are on the right track with his pain management, he continues to tolerate his oral Percocet. Denies any other sx at this time including SOB, CP. He first day of OT/PT was on 08/28. Surgery to continue to follow with RN performing dressing changes. Plan for rehab D/C in the near future pending surgical & therapy sign off. 08/31: Pt continues to report pain but most often with movement, he states that the oral pain meds are otherwise controlling the pain. Pt continuing to try to eat more, he does not enjoy the food here. Pt's sodium continues to be mildly low and pt is experiencing some hand cramps. He did tell me today that this is normal for him, and that he takes sodium tabs at home, ordered those for BID today, will continue to trend in the AM. Will continue these at D/C. [facility] has accepted pt with probable D/C tomorrow. 09/01: Pt reports he continues to feel as if he is healing, pain is still controlled with oral pain medications. Surgery has signed off on pt for D/C. Pt is eager and reluctant to head to [facility] today for therapy, but is agreeable. Pt in good spirits. Labs relay Na of 133 which is more of his baseline, he will continue on his home sodium chloride tabs, denies any hand cramping today. VSS continue to be nml, upon my examination today pt 93% RA and 70bpm. Pt to f/u with Dr. Malone in the office in 2-3 weeks. Status at Discharge Cognitive/behavioral status at discharge: Stable Functional status at discharge: independent ambulation Overall status at discharge: patient is progressing back to baseline Time Spent with Patient Time attestation: Total time spent providing and/or coordinating discharge services: Exam Const: General: comfortable and no acute distress Other: , male, obese body habitus, nontoxic appearance HENMT: Face/Nose/Sinus: Normal nares present Mouth: Yes moist mucous membranes Eyes: General: appearance normal, both eyes and all related structures Sclera: sclerae normal Neck: Neck: supple and no JVD Resp: Effort & Inspection: normal respiratory effort Auscultation: clear to auscultation bilaterally Other: Speaking in complete sentences. Cardio: Rate: regular rate Rhythm: regular rhythm Other: S1-S2 present without murmur, rub, ectopy GI: Auscultation: normal bowel sounds Other: Abdomen soft, nondistended, nontender. Normoactive bowel sounds in all quadrants. : Male General Exam: Yes normal external exam Skin: General skin exam: normal color Other: RLE BKA jayesh wrap dressing C/D/I with knee immobilizer applied Neuro: Cranial nerves: Yes Equal, round and reactive pupils present Speech: normal speech Motor exam (neuro): Normal motor muscle tone present throughout Sensory Exam: normal sensation Other: A&O x4 Extrem: Other: LLE with chronic lymphedema and venous stasis dermatitis. Cream applied. See skin. Psych: Mental Status: mental status grossly normal Affect: normal affect Other: Good insight and judgment, very pleasant DS: Data Data Completed and Pending Completed studies during hospitalization: Pending at discharge 08/25/24 13:34 Surgical [PTH] Routine Labs on day of discharge: Labs from last 24 hours 09/01/24 05:28 WBC 9.2 RBC 3.11 L Hgb 8.0 L Hct 28.2 L MCV 90.7 MCH 25.7 L MCHC 28.4 L RDW 15.2 H Plt Count 381 H MPV 10.8 H Immature Gran % (Auto) 1.1 H Neut % (Auto) 78.2 H Lymph % (Auto) 5.5 L [place] % (Auto) 10.4 H Eos % (Auto) 4.0 Baso % (Auto) 0.8 Lymph # (Auto) 0.51 L [place] # (Auto) 1.0 H Eos # (Auto) 0.4 H Baso # (Auto) 0.1 Abs Immat Gran (auto) 0.10 H Absolute Neuts (auto) 7.2 H Absolute Nucleated RBC 0.000 Band Neutrophils % Not Reportable Nucleated RBC % 0.0 Platelet Estimate Adequate Hypochromasia 1+ Anisocytosis 1+ Schistocytes None seen Sodium 133 L Potassium 3.9 Chloride 80 L Carbon Dioxide > 40 H Anion Gap BUN 69 H Creatinine 2.26 H Estim Creat Clear Calc 39 Estimated GFR 28 L Glucose 104 Calcium 9.1 Total Bilirubin 0.4 AST 51 ALT 28 Alkaline Phosphatase 68 Total Protein 6.0 L Albumin 3.1 L Discharge Plan Discharge Attending physician on discharge: Eboni Chavez Consulting providers: Adarsh Malone Discharging Clinician: Eboni Chavez Anticipated Discharge Date/Time: 09/01/24 13:00 Patient Disposition: Inpatient Rehab Facility Activity: as tolerated Diet: heart healthy Wound Care Instructions: change dressing daily Discharge Instructions: * Wound care: Apply Xeroform gauze, 4x4 gauze, and wrap with kerlex gauze and Jayesh wrap for compression to right BKA incision. Change dressing daily. * Keep knee immobilizer in place until directed otherwise by your surgeon after follow-up. * Follow-up with Dr. Malone in our office in 2-3 weeks. Call to schedule the appointment. [phone] 1. Make sure to continue to take your normal medication at [facility] and then continue when you are at home as well, including your sodium chloride tabs. Continue to check your blood pressure and blood sugar at home if applicable. Keep your scheduled appts with your primary care provider and any specialist that you may see. Return to the emergency department if you develop sudden shortness of breath, chest pain, a fever of greater than 101.5, or nausea, vomiting, abd pain, or diarrhea that does not go away. Follow-up with your primary care provider within 1-2 weeks, they will want to be updated on your inpatient stay in the hospital. Thank you for choosing [facility] for your healthcare needs! Patient Instructions: Oxycodone/Acetaminophen (By mouth), Apixaban (By mouth), Below the Knee Amputation (GEN) Patient Language: Bulgarian Stand Alone Forms: General Discharge Information Follow-up/Referrals: Lilliana Tomas NP [Primary Care Provider] - 2 Weeks Adarsh Malone DO [Physician] - Call for Appointment Discharge Medications: Continued loratadine [Claritin] 10 mg tablet 10 mg PO DAILY PRN (Reason: allergy symptoms) fluticasone propionate [Flonase Allergy Relief] 50 mcg/actuation spray,suspension 1 spray intranasal DAILY Rx Instructions: administer into each nostril Eliquis 5 mg tablet 5 mg PO Q12HR Qty: 180 1RF Patient Comments: metoprolol tartrate 50 mg tablet 50 mg PO Q12HR Qty: 180 1RF acetazolamide 250 mg tablet 250 mg PO DAILY calcitriol 0.25 mcg capsule 0.25 mcg PO 3XW Qty: 36 3RF Rx Instructions: take on Saturday, Saturday, Fridays minoxidil 2.5 mg tablet 2.5 mg PO DAILY metolazone 5 mg tablet 5 mg PO DAILY potassium chloride 10 mEq capsule, extended release 10 meq PO DAILY PRN (Reason: leg cramping) allopurinol 100 mg tablet 100 mg PO DAILY@0800 Qty: 90 3RF famotidine 20 mg tablet 20 mg PO BID Qty: 180 3RF levothyroxine 200 mcg tablet 200 mcg PO DAILY Qty: 90 1RF tamsulosin 0.4 mg capsule 0.4 mg PO QAM Qty: 90 3RF allopurinol 100 mg tablet 100 mg PO DAILY Qty: 10 0RF Minerin Creme Cream 1 applic topical BID Qty: 113 0RF Rx Instructions: Apply to jackie lower legs polyethylene glycol 3350 [Miralax] 17 gram/dose Powder 17 g PO DAILY PRN (Reason: Constipation) acetaminophen 325 mg tablet 500 mg PO Q4H PRN (Reason: Mild Pain (1-3) Or Fever) docusate sodium 100 mg Capsule 100 mg PO Q12H PRN (Reason: constipation) gabapentin 300 mg capsule 300 mg PO TID Qty: 270 1RF bumetanide 1 mg tablet See Rx Instructions .ROUTE .COMPLEX Qty: 270 3RF Dose Instruction: TAKE 1 TABLET BY MOUTH 3 TIMES DAILY Rx Instructions: TAKE 1 TABLET BY MOUTH 3 TIMES DAILY spironolactone 25 mg tablet 25 mg PO DAILY Qty: 30 0RF Date of admission: 08/21/24 14:25 Primary Care Provider: Lilliana Tomas Admitting Provider: Jose Angel Shields Attending physician on admission: Eboni Chavez Condition: Stable Quality VTE Prophylaxis VTE prophylaxis: pharmacologic ordered Hospitalist MIPS Heart Failure (Exclusion) Patient has history of Heart Transplant or Left Ventricular Assistive Device?: No IF YES, STOP HERE Heart Failure (Qualifier) Patient has current or prior documentation of LVEF less than or equal to 40%, or mod/servere depressed LVSF?: No IF NO, STOP HERE
[2024-09-01 12:23] LABS: SARS-CoV-2 RNA PCR Negative (Negative)
[2024-09-01 14:09] LABS: Osmolality, Urine 323
[2024-09-01] MEDS: oxyCODONE/ACETAMINOPHEN (*CRX) 10-325 MG TABLET 1 TAB PO (14:41)
--- NOTE | 2024-09-01 14:53 | P.PNGS_ITS ---
Progress Note: A&P Assessment and Plan (1) Cellulitis of right foot: Code(s): L03.115 - Cellulitis of right lower limb Status: Acute Assessment and Plan: * Continue ramone wrap for compression and daily dressing changes. * Continue knee immobilizer * Continue PT/OT * Patient stable for discharge from our standpoint. He can follow-up with Dr. Malone in our office in 2-3 weeks. Plan I have discussed the patient's case and plan of care with Dr. Malone. Subjective Subjective Date/Time Seen: 09/01/24 14:53 Interval history: Patient doing well today and notes pain to be decreased. Normal WBC. Afebrile. Working with PT upon today's visit. Surgically stable for discharge. Exam Extrem: General: normal to inspection Other: Right BKA incision not visualized today. Dressing and knee immobilizer clean and intact. Objective Data Vital Signs Vital Signs: Vital Signs - 24 hr 08/31/24 20:00 08/31/24 20:30 08/31/24 20:34 Temperature 99.5 F Pulse Rate 88 77 82 Respiratory Rate 18 Blood Pressure 124/57 L Pulse Oximetry 98 94 Oxygen Delivery CPAP Oxygen Flow Rate 08/31/24 22:13 09/01/24 02:18 09/01/24 06:00 Temperature 97.5 F L Pulse Rate 72 79 Respiratory Rate 16 Blood Pressure 121/57 L Pulse Oximetry 94 92 92 Oxygen Delivery CPAP CPAP Oxygen Flow Rate 4 09/01/24 09:39 Temperature Pulse Rate 102 H Respiratory Rate Blood Pressure Pulse Oximetry Oxygen Delivery Oxygen Flow Rate Intake/Output Intake/Output: Intake & Output 08/29/24 08/30/24 08/31/24 09/01/24 23:59 23:59 23:59 23:59 Intake Total 3140 1590 2006 480 Output Total 2350 4700 3550 1450 Balance 790 -3110 -1544 -970 Meds/Results Medications: Active Medications Generic Name Dose Route Start Last Admin Trade Name Freq PRN Reason Stop Dose Admin Acetaminophen 650 mg 08/20/24 16:16 08/28/24 17:31 Acetaminophen 325 Mg Tablet PO 650 mg Q4H PRN Administration Mild Pain (1-3) or Fever Allopurinol 100 mg 08/21/24 09:00 09/01/24 09:36 Allopurinol 100 Mg Tablet PO 100 mg DAILY ANGELA Administration Apixaban 5 mg 08/20/24 22:05 09/01/24 09:37 Apixaban 5 Mg Tablet PO 5 mg Q12HR ANGELA Administration Bumetanide 1 mg 08/23/24 14:00 09/01/24 12:55 Bumetanide 1 Mg Tablet PO 1 mg TID@0600,1000,1400 ANGELA Administration Calcitriol 0.25 mcg 08/21/24 09:00 08/31/24 09:24 Calcitriol 0.25 Mcg Capsule PO 0.25 mcg MoWeFr@0900 ANGELA Administration Docusate Sodium 100 mg 08/20/24 21:47 Docusate Sodium 100 Mg Capsule PO Q12H PRN constipation Famotidine 20 mg 08/20/24 22:05 09/01/24 09:37 Famotidine 20 Mg Tablet PO 20 mg BID ANGELA Administration Fluticasone Propionate 1 spray 08/21/24 09:00 09/01/24 09:35 Fluticasone Propionate 0.05% Na Spr 16 Gm Btl (*Bkc) NASAL 1 spray DAILY [facility] Administration Gabapentin 300 mg 08/30/24 13:00 09/01/24 12:55 Gabapentin 300 Mg Capsule PO 300 mg TID ANGELA Administration Hydromorphone HCl 0.5 mg 08/25/24 16:17 08/28/24 03:17 Hydromorphone Hcl Inj (*Crx) 2 Mg/Ml Vial IV PUSH 0.5 mg Q2H PRN Administration Breakthrough Pain Rated 4-6 or NPO Ibuprofen 400 mg/ Sodium 104 mls @ 208 mls/hr 08/26/24 15:46 08/28/24 12:29 Chloride IVPB Infused Q6H PRN Infusion Breakthrough Pain Levothyroxine Sodium 200 mcg 08/21/24 06:30 09/01/24 05:44 Levothyroxine Sodium 100 Mcg Tablet PO 200 mcg DAILY@0630 [facility] Administration Loratadine 10 mg 08/22/24 10:05 09/01/24 09:37 Loratadine 10 Mg Tablet PO 10 mg DAILY ANGELA Administration Metolazone 5 mg 08/21/24 09:00 09/01/24 09:36 Metolazone 5 Mg Tablet PO 5 mg DAILY ANGELA Administration Metoprolol Tartrate 50 mg 08/20/24 22:05 09/01/24 09:39 Metoprolol Tartrate 50 Mg Tab PO 50 mg Q12HR ANGELA Administration Minoxidil 2.5 mg 08/21/24 09:00 09/01/24 09:37 Minoxidil 2.5 Mg Tablet PO 2.5 mg DAILY ANGELA Administration Multi-Ingred Cream/Lotion/Oil/Oint 1 applic 08/21/24 09:00 09/01/24 09:35 Eucerin Cream 454 Gm Jar TOPICAL 1 applic BID ANGELA Administration Naloxone HCl 0.1 mg 08/25/24 16:14 Naloxone Hcl 0.4 Mg/Ml Vial IV PUSH Q2M PRN Opiate Reversal Ondansetron HCl 4 mg 08/27/24 14:12 08/27/24 17:08 Ondansetron Inj 4 Mg/2 Ml Vial IV PUSH 4 mg Q4H PRN Administration Nausea And Vomiting Oxycodone/Acetaminophen 1 tablet 08/25/24 16:14 08/29/24 20:23 Oxycodone/Acetaminophen (*Crx) 5-325 Mg Tablet PO 1 tablet Q4H PRN Administration Pain Rated 4-6 Oxycodone/Acetaminophen 1 tab 08/25/24 16:14 09/01/24 14:41 Oxycodone/Acetaminophen (*Crx) 10-325 Mg Tablet PO 1 tab Q6H PRN Administration Pain Rated 7-10 Polyethylene Glycol 17 gm 08/22/24 10:05 09/01/24 09:36 Polyethylene Glycol 3350 17 Gm Powd.Pack PO 17 gm DAILY ANGELA Administration Potassium Chloride 10 meq 08/20/24 22:04 Potassium Chloride 10 Meq Er Tablet PO DAILY PRN leg cramping Promethazine HCl 12.5 mg 08/20/24 16:16 Promethazine Hcl 25 Mg/Ml Ampul IV PUSH Q6H PRN Nausea Sodium Chloride 1 gm 08/31/24 17:00 09/01/24 09:36 Sodium Chloride 1 Gm Tablet PO 1 gm BID ANGELA Administration Spironolactone 25 mg 08/21/24 09:00 09/01/24 09:37 Spironolactone 25 Mg Tablet PO 25 mg DAILY ANGELA Administration Tamsulosin HCl 0.4 mg 08/21/24 09:00 09/01/24 09:36 Tamsulosin Hcl 0.4 Mg Capsule PO 0.4 mg QAM ANGELA Administration Radiology Results: ITS Impressions Ankle X-Ray 08/20/24 12:55 IMPRESSION: Lucency over the right lateral malleolus. Follow-up advised. 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 Tibia/Fibula X-Ray 08/20/24 13:03 IMPRESSION: No definite acute osseous abnormality right leg. Lucencies in the area of the medial and lateral malleoli which may be summation shadows. Clinical correlation and follow-up advised.. Foot X-Ray 08/20/24 13:07 Impression: Extensive soft tissue swelling. No definite evidence for osteomyelitis. Labs Labs: Laboratory Results - last 24 hr 08/30/24 08/31/24 09/01/24 10:21 05:37 05:28 WBC 9.2 RBC 3.11 L Hgb 8.0 L Hct 28.2 L MCV 90.7 MCH 25.7 L MCHC 28.4 L RDW 15.2 H Plt Count 381 H MPV 10.8 H Immature Gran % (Auto) 1.1 H Neut % (Auto) 78.2 H Lymph % (Auto) 5.5 L [place] % (Auto) 10.4 H Eos % (Auto) 4.0 Baso % (Auto) 0.8 Lymph # (Auto) 0.51 L [place] # (Auto) 1.0 H Eos # (Auto) 0.4 H Baso # (Auto) 0.1 Abs Immat Gran (auto) 0.10 H Absolute Neuts (auto) 7.2 H Absolute Nucleated RBC 0.000 Band Neutrophils % Not Reportable Nucleated RBC % 0.0 Platelet Estimate Adequate Hypochromasia 1+ Anisocytosis 1+ Schistocytes None seen Sodium 133 L Potassium 3.9 Chloride 80 L Carbon Dioxide > 40 H Anion Gap BUN 69 H Creatinine 2.26 H Estim Creat Clear Calc 39 Estimated GFR 28 L Glucose 104 Serum Osmolality 307 H Calcium 9.1 Total Bilirubin 0.4 AST 51 ALT 28 Alkaline Phosphatase 68 Total Protein 6.0 L Albumin 3.1 L Urine Osmolality 323 SARS-CoV-2 RNA (RT-PCR) 09/01/24 11:30 WBC RBC Hgb Hct MCV MCH MCHC RDW Plt Count MPV Immature Gran % (Auto) Neut % (Auto) Lymph % (Auto) [place] % (Auto) Eos % (Auto) Baso % (Auto) Lymph # (Auto) [place] # (Auto) Eos # (Auto) Baso # (Auto) Abs Immat Gran (auto) Absolute Neuts (auto) Absolute Nucleated RBC Band Neutrophils % Nucleated RBC % Platelet Estimate Hypochromasia Anisocytosis Schistocytes Sodium Potassium Chloride Carbon Dioxide Anion Gap BUN Creatinine Estim Creat Clear Calc Estimated GFR Glucose Serum Osmolality Calcium Total Bilirubin AST ALT Alkaline Phosphatase Total Protein Albumin Urine Osmolality SARS-CoV-2 RNA (RT-PCR) Negative
== END 2024-09-01 15:02 | DRG 240 ==
LOC: ANHED 12:47 → ANH3MED 17:51
PROVIDERS: Emergency Medicine; Nurse Practitioner Family; Student in an Organized Health Care Education/Training Program; Surgery; Admitting Provider Family Medicine; Emergency Provider Emergency Medicine; PCP Nurse Practitioner Family
PROC: 0Y6H0Z3 Detachment at Right Lower Leg, Low, Open Approach (ICD-10-PCS; CPT 27882; principal; 2024-08-25 12:30)
DX: I87.2 Venous insufficiency (chronic) (peripheral) (principal); E87.1 Hypo-osmolality and hyponatremia; I48.20 Chronic atrial fibrillation, unspecified; I50.32 Chronic diastolic (congestive) heart failure; Z68.41 Body mass index [BMI] 40.0-44.9, adult; L03.115 Cellulitis of right lower limb; L97.319 Non-pressure chronic ulcer of right ankle with unspecified severity; L97.519 Non-pressure chronic ulcer of other part of right foot with unspecified severity; I12.9 Hypertensive chronic kidney disease with stage 1 through stage 4 chronic kidney disease, or unspecified chronic kidney disease; N18.32 Chronic kidney disease, stage 3b; I73.9 Peripheral vascular disease, unspecified; I89.0 Lymphedema, not elsewhere classified; D64.9 Anemia, unspecified; E78.5 Hyperlipidemia, unspecified; E03.9 Hypothyroidism, unspecified; E66.01 Morbid (severe) obesity due to excess calories; K21.9 Gastro-esophageal reflux disease without esophagitis; L71.8 Other rosacea; M79.2 Neuralgia and neuritis, unspecified; M10.9 Gout, unspecified; M54.50 Low back pain, unspecified; G89.29 Other chronic pain; Z87.891 Personal history of nicotine dependence; Z79.01 Long term (current) use of anticoagulants
CPT/HCPCS: 36415; 73590; 73610; 73630; 80053; 80202; 82565; 83605; 83735; 83930; 83935; 84300; 85025; 85610; 85730; 86850; 86900; 86901; 87040; 87070; 87075; 87181; 87186; 87205; 87635; 87641; 88307; 88311; 94002; 96365; 96366; 96367; 96375; 96376; 97110; 97161; 97166; 97530; 97535; 99212; 99285; A9270; G0378; G0463; J1171; J1650; J1741; J1836; J1956; J2003; J2185; J2270; J2405; J2704; J3010; J3370; J7120

== ENCOUNTER 2024-09-15 13:58 | Inpatient (IN) | payer MEDICARE, SELFPAY ==
[2024-09-15] VITALS (12 sets, daily range): BP systolic 94–107; BP diastolic 52–70; PULSE 69–77; RESP 12–20; TEMP 36.4–36.8; O2SAT 95–100; BMI 39.6
--- NOTE | ~2024-09-15 | US_ITS ---
US renal BI Ordering provider: Chester Longo MD History: . JENA on CKD . Comparison: April 22, 2022 Technique: Ultrasound bilateral kidneys. Findings: RIGHT KIDNEY: Measures 12.1x 4.9x 5.2 cm in length which is normal in size. The kidney is not complet jae visualized. Vascularity was not possible is seen. Follow-up advised. No renal cysts. No renal mas s or visualized echogenic stones. Otherwise, normal echotexture and contour. No hydronephrosis. Gayathri l renal cortical thickness. LEFT KIDNEY: Measures 12.2x 4.7x 5.2 cm in length which is normal in size. No renal cysts. No renal m ass or visualized echogenic stones. Otherwise, normal echotexture and contour. Mild hydronephrosis. N ormal renal cortical thickness. BLADDER: Normal. Ureteral jets were not seen bilaterally. IMPRESSION: Partially visualized right kidney with inability to have proper window for vascularity assessment. Possible mild left hydronephrosis. Follow-up advised. Reviewed, dictated and finalized at location A. IMPRESSION: Partially visualized right kidney with inability to have proper window for vasc ularity assessment. Possible mild left hydronephrosis. Follow-up advised.
--- NOTE | ~2024-09-15 | XR_ITS ---
XR chest 1V portable Ordering provider: Chester Longo MD History: 74 years Male with . SOB . Comparison: December 05, 2023 FINDINGS: MEDIASTINUM: The cardiac silhouette is not enlarged. Congestive ana. LUNGS: No effusions or pneumothorax. Prominent bronchovascular markings in the left lower lobe with minimal opacification which may indica te atelectasis versus pneumonia. OTHER: No free air under the diaphragm. Degenerative changes of the spine. IMPRESSION: Prominent markings with minimal opacification in the left lung base suggestive of atelectasis versus pneumonia. Follow-up advised. Reviewed, dictated and finalized at location A.
--- NOTE | ~2024-09-15 | CT_ITS ---
CT abdomen pelvis wo con Ordering provider: Panda Jesus MD History: 74 years Male with . Abdominal pain GI bleed . Comparison: April 20, 2022 Technique: CT abdomen and pelvis with IV and without oral contrast. Automated exposure control and it erative reconstruction technique were employed. The dose-length product was 1573.21 mGy-cm. 100 mL Om nipaque 350 was given IV. Findings: VISUALIZED LOWER CHEST: Slight cardiomegaly. UPPER ABDOMINAL ORGANS: Liver: Hepatomegaly. Hypodensity in the right lower lobe measuring 1.6 cm which is unchanged from pre vious examination. Gallbladder: Status post cholecystectomy. Spleen: Normal. Stomach/duodenum: Normal. Pancreas: Normal. Adrenals: Normal. Kidneys: Tiny calcific area in the right kidney upper pole unchanged from previous examination. PELVIC ORGANS: The bladder is normal. BOWEL AND MESENTERY: Colon: Fecal material is impacted in the rectum with thickening of the wall of the colon suggestive o f proctitis. Fat stranding also seen around the rectum. Fecal material is loaded in the colon..Append ix is not demonstrated. Small Bowel: Normal. No obstruction. Peritoneum/mesentery: No free air or free fluid. No mesenteric lymphadenopathy. RETROPERITONEUM: Mild atheromatous disease of the abdominal aorta. No retroperitoneal lymphadenopat hy. Small para-aortic lymph nodes are noted. MUSCULOSKELETAL: Superficial soft tissues: Fat containing umbilical and supraumbilical hernias are noted. The superfic ial soft tissues are normal. Bones: Age appropriate degenerative changes of the spine. Right sacroiliitis. IMPRESSION: 1. No evidence of appendicitis, diverticulitis or intestinal obstruction. 2. Hepatomegaly. 3. Hypodensity in the liver which may be a cyst. Unchanged from previous examination. 4. Tiny calcific area in the right kidney upper pole unchanged from previous examination. 5. Constipation with proctitis. Reviewed, dictated and finalized at location A. IMPRESSION: 1. No evidence of appendicitis, diverticulitis or intestinal obstruction. 2. Hepatomegaly. 3. Hypodensity in the liver which may be a cyst. Unchanged from previous exami nation. 4. Tiny calcific area in the right kidney upper pole unchanged from previous e xamination. 5. Constipation with proctitis.
[2024-09-15 14:27] LABS: Basophils Absolute Auto 0.1 K/mm3 (0.0-0.1); Basophils Percent Auto 0.4 % (0.2-1.2); Eosinophils Absolute Auto 0.3 K/mm3 (0-0.3); Hematocrit 30.5 % (42.0-52.0); Hemoglobin 9.3 g/dL (14.0-18.0); Immature Granulocyte Absolute 0.12 K/mm3 (0.00-0.031); Immature Granulocyte Percent A 0.8 % (0-0.5); Mean Corpuscular HGB Conc 30.5 g/dl (32-36); Mean Corpuscular Hemoglobin 25.1 pg (26-34); Mean Corpuscular Volume 82.4 fl (80-100); Mean Platelet Volume 9.3 fl (7.4-10.4); Monocytes Absolute Auto 0.9 K/mm3 (0.1-0.6); Monocytes Percent Auto 5.7 % (2.6-8.5); Neutrophils Absolute Auto 13.2 K/mm3 (1.3-6.7); Neutrophils Percent Auto 87.1 % (45.5-73.1); Platelet Count Result 565 k/mm3 (150-375); Red Cell Distribution Width 15.3 % (11.5-14.5); White Blood Count 15.1 K/mm3 (4.5-10.0)
[2024-09-15 14:43] LABS: Alanine Aminotransferase 17 U/L (6-50); Albumin Level 4.1 g/dL (3.5-5.1); Alkaline Phosphatase 72 U/L (38-126); Anion Gap 16 mmol/L (4-12); Aspartate Amino Transferase 20 U/L (17-59); Bilirubin,Total 0.4 mg/dL (0.2-1.3); Blood Urea Nitrogen 119 mg/dL (9-20); Calcium 9.1 mg/dL (8.4-10.2); Carbon Dioxide 29 mmol/L (22-30); Chloride 83 mmol/L (98-107); Estimated CRCL calculation 30 ml/min; Estimated Glomerular Filt Rate 23; Glucose 120 mg/dL (65-110); Lipase 239 U/L (23-300); Sodium 128 mmol/L (137-145); Total Protein 7.5 g/dL (6.3-8.2)
[2024-09-15 14:48] LABS: Anisocytosis 1+; Platelet Estimate Increased (Adequate); Polychromasia 1+
[2024-09-15 14:49] LABS: Ovalocytes 1+; Tear Drop Cells 1+
[2024-09-15 14:51] LABS: Schistocytes Rare
--- NOTE | 2024-09-15 15:02 | ED.GENADULT ---
HPI - General Adult General Chief complaint: Abdominal Pain Stated complaint: abd pain, rectal pain Time Seen by Provider: 09/15/24 14:45 History of Present Illness HPI narrative: Patient is a 4-year-old gentleman who presents emergency department with chief complaint of left lower quadrant abdominal pain. 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 and our facility Related Data Home Medications ?Medication ?Instructions ?Recorded ?Confirmed ?Last Taken ?Type loratadine 10 mg tablet (Claritin) 10 mg PO DAILY PRN allergy symptoms 07/12/20 08/20/24 08/20/24 History polyethylene glycol 3350 17 17 g PO DAILY PRN Constipation 06/02/21 08/20/24 03/04/24 History gram/dose oral powder (Miralax) acetazolamide 250 mg tablet 250 mg PO DAILY 11/19/22 08/20/24 08/20/24 History fluticasone propionate 50 1 spray intranasal DAILY Congestion 11/19/22 08/20/24 08/20/24 History mcg/actuation nasal spray,suspension (Flonase Allergy Relief) acetaminophen 325 mg tablet 500 mg PO Q4H PRN Mild Pain (1-3) 01/15/24 08/20/24 03/04/24 History Or Fever docusate sodium 100 mg capsule 100 mg PO Q12H PRN constipation 05/13/24 08/20/24 Unknown History metolazone 5 mg tablet 5 mg PO DAILY 08/04/24 08/20/24 08/20/24 History minoxidil 2.5 mg tablet 2.5 mg PO DAILY 08/04/24 08/20/24 08/20/24 08:00 History 2.5 mg potassium chloride 10 mEq 10 meq PO DAILY PRN leg cramping 08/04/24 08/20/24 Unknown History capsule,extended release Allergies Allergy/AdvReac Type Severity Reaction Status Date / Time Sulfa (Sulfonamide Allergy Mild Rash Verified 09/15/24 14:05 Antibiotics) Penicillins Allergy Unknown SWELLING Verified 09/15/24 14:05 codeine AdvReac Mild N/V Verified 09/15/24 14:05 hydrocodone AdvReac Mild N/V Verified 09/15/24 14:05 oxycodone (From OxyContin) AdvReac Mild Nausea Verified 09/15/24 14:05 tramadol AdvReac Mild Nausea Verified 09/15/24 14:05 Review of Systems Review of Systems: A 10 system review of systems was completed on the patient and is negative except for what is stated in the HPI. Nursing and ancillary documentation was reviewed. [facility] Past Medical History Medical History Hyponatremia Self-care deficit Peripheral vascular disease Morbid obesity with body mass index (BMI) of 40.0 or higher Neuropathic pain Gout Sepsis Chronic acquired lymphedema Chronic anemia Obstructive sleep apnea Atrial fibrillation Lymphedema of both lower extremities Environmental allergies Ocular rosacea Rosacea Chronic low back pain Chronic venous insufficiency GERD without esophagitis Chronic congestive heart failure Echocardiogram in May 2021 was technically difficult and showed normal LV systolic function with an EF of 60 to 65%, severely enlarged RV chamber with moderate to severely reduced RV systolic function, severe biatrial enlargement, and moderate pulmonary hypertension. Dyslipidemia Essential (primary) hypertension Peripheral polyneuropathy Hypothyroidism Surgical History Surgical History History of carpal tunnel release History of thoracic surgery Pericardial effusion s/p pericardial window thought secondary to minoxidil, in 2010 at [facility]. H/O eye surgery (~2005) [phone] [facility] History of foot surgery Left Foot History of cholecystectomy (2008) History of rotator cuff surgery Bilateral. History of discectomy (2012) Family History Family History Father Cardiovascular disease Grandparent Cancer Mother COPD (chronic obstructive pulmonary disease) Social History Social History Social History: Surrogate medical decision maker: Shyla Hurst, daughter. Code status: Full code. Caffeine-decalf coffee, diet soda Smoking packs per day: 2 Smoking cigarettes per day: 40.0 Years smoked: 20 Smoking pack-years: 40.00 Smoking status: Former smoker Second hand tobacco smoke exposure: No Additional smoking assessment comments: 1979 Alcohol intake: former Alcohol use details: One beer daily. Substance use: never Substance use type: does not use Do You Feel Safe in your Home?: Yes Lack of Transportation: No Lack of Food: Never True Current Housing: I Have Housing Concerned About Future Housing: No Difficulty Paying Gas/Electric Bills: No Difficulty Paying for Meds: No Currently Unemployed: No Education: High School Diploma/GED Difficulty w/ Childcare or Family Care: No Living arrangements: alone Additional living arrangements comments: Lives in own home in [place]. Uses a motorized scooter and transfers with slide board. Occupation/Education: retired Additional occupation/education comments: Retired. 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 Spiritual care concerns: No Exam Narrative: GENERAL: Well-appearing, well-nourished, and in no acute distress. HEAD: Normocephalic, atraumatic. EYES: PERRLA and EOMI. ENT: Nares clear, no rhinorrhea or epistaxis. Mucous membranes moist. NECK: Supple. CHEST: Clear to auscultation. No respiratory distress. HEART: Regular rate and rhythm. No murmur heard. Normal peripheral pulses. ABDOMEN: Soft, tenderness to palpation left lower quadrant, nondistended, normal active bowel sounds. : Black stool that is guaiac positive EXTREMITIES: Normal range of motion below-knee amputation right lower extremity. No edema. SKIN: Warm, dry, no rash. NEURO: No focal deficits. Alert and oriented x3. PSYCH: Normal mood and affect. Course Vital Signs Vital signs: Vital Signs Temperature 36.4 C 09/15/24 13:58 Pulse Rate 72 09/15/24 13:58 Respiratory Rate 14 09/15/24 13:58 Blood Pressure 103/60 09/15/24 13:58 Pulse Oximetry 100 09/15/24 13:58 Oxygen Delivery Room Air 09/15/24 13:58 Temperature 36.4 C 09/15/24 13:58 Pulse Rate 72 09/15/24 16:09 Respiratory Rate 20 09/15/24 16:09 Blood Pressure 100/64 09/15/24 16:09 Pulse Oximetry 100 09/15/24 16:09 Oxygen Delivery Room Air 09/15/24 13:58 Medical Decision Making MDM Narrative Medical decision making narrative: Differential diagnosis includes GI bleed, diverticulitis, colitis White blood cell count was 15 hemoglobin was 9.3 electrolytes showed a BUN of 19 and creatinine to 2.75 CT scan showed evidence of constipation of proctitis Vital Signs Vital Signs: Vital Signs Temperature 36.4 C 09/15/24 13:58 Pulse Rate 72 09/15/24 13:58 Respiratory Rate 14 09/15/24 13:58 Blood Pressure 103/60 09/15/24 13:58 Pulse Oximetry 100 09/15/24 13:58 Oxygen Delivery Room Air 09/15/24 13:58 Temperature 36.4 C 09/15/24 13:58 Pulse Rate 72 09/15/24 16:09 Respiratory Rate 20 09/15/24 16:09 Blood Pressure 100/64 09/15/24 16:09 Pulse Oximetry 100 09/15/24 16:09 Oxygen Delivery Room Air 09/15/24 13:58 Lab Data 09/15/24 14:18 09/15/24 14:18 Labs: Lab Results 09/15/24 09/15/24 Range/Units 14:18 15:11 WBC 15.1 H (4.5-10.0) K/mm3 RBC 3.70 L (4.6-6.20) M/mm3 Hgb 9.3 L (14.0-18.0) g/dL Hct 30.5 L (42.0-52.0) % MCV 82.4 (80-100) fl MCH 25.1 L (26-34) pg MCHC 30.5 L (32-36) g/dl RDW 15.3 H (11.5-14.5) % Plt Count 565 H (150-375) k/mm3 MPV 9.3 (7.4-10.4) fl Immature Gran % (Auto) 0.8 H (0-0.5) % Neut % (Auto) 87.1 H (45.5-73.1) % Lymph % (Auto) 4.0 L (18.3-44.2) % [place] % (Auto) 5.7 (2.6-8.5) % Eos % (Auto) 2.0 (0-4.4) % Baso % (Auto) 0.4 (0.2-1.2) % Lymph # (Auto) 0.60 L (0.9-3.2) K/mm3 [place] # (Auto) 0.9 H (0.1-0.6) K/mm3 Eos # (Auto) 0.3 (0-0.3) K/mm3 Baso # (Auto) 0.1 (0.0-0.1) K/mm3 Abs Immat Gran (auto) 0.12 H (0.00-0.031) K/mm3 Absolute Neuts (auto) 13.2 H (1.3-6.7) K/mm3 Absolute Nucleated RBC 0.000 (0.0-0.012) K/mm3 Band Neutrophils % Not Reportable Nucleated RBC % 0.0 (0.0-0.2) % Platelet Estimate Increased (Adequate) Polychromasia 1+ Anisocytosis 1+ Tear Drop Cells 1+ Ovalocytes 1+ Schistocytes Rare PT 20.3 H (11.1-14.7) Seconds INR 1.8 APTT 37.2 H (22.3-36.8) Seconds Sodium 128 L (137-145) mmol/L Potassium 3.0 L (3.4-5.0) mmol/L Chloride 83 L (98-107) mmol/L Carbon Dioxide 29 (22-30) mmol/L Anion Gap 16 H (4-12) mmol/L BUN 119 H* D (9-20) mg/dL Creatinine 2.75 H (0.7-1.3) mg/dL Estim Creat Clear Calc 30 ml/min Estimated GFR 23 L (59 - ) Glucose 120 H (65-110) mg/dL Calcium 9.1 (8.4-10.2) mg/dL Total Bilirubin 0.4 (0.2-1.3) mg/dL AST 20 (17-59) U/L ALT 17 (6-50) U/L Alkaline Phosphatase 72 (38-126) U/L Total Protein 7.5 (6.3-8.2) g/dL Albumin 4.1 (3.5-5.1) g/dL Lipase 239 (23-300) U/L Blood Type A Positive Antibody Screen Negative Discharge Plan Discharge Clinical Impression: GI (gastrointestinal bleed) Patient Disposition: Still a Patient Condition: Stable Instructions: Antibiotic Form Patient Language: Danish Prescriptions: No Action loratadine [Claritin] 10 mg tablet 10 mg PO DAILY PRN (Reason: allergy symptoms) fluticasone propionate [Flonase Allergy Relief] 50 mcg/actuation spray,suspension 1 spray intranasal DAILY Rx Instructions: administer into each nostril Eliquis 5 mg tablet 5 mg PO Q12HR Qty: 180 1RF Patient Comments: metoprolol tartrate 50 mg tablet 50 mg PO Q12HR Qty: 180 1RF acetazolamide 250 mg tablet 250 mg PO DAILY calcitriol 0.25 mcg capsule 0.25 mcg PO 3XW Qty: 36 3RF Rx Instructions: take on Saturday, Saturday, Fridays minoxidil 2.5 mg tablet 2.5 mg PO DAILY metolazone 5 mg tablet 5 mg PO DAILY potassium chloride 10 mEq capsule, extended release 10 meq PO DAILY PRN (Reason: leg cramping) allopurinol 100 mg tablet 100 mg PO DAILY@0800 Qty: 90 3RF famotidine 20 mg tablet 20 mg PO BID Qty: 180 3RF levothyroxine 200 mcg tablet 200 mcg PO DAILY Qty: 90 1RF tamsulosin 0.4 mg capsule 0.4 mg PO QAM Qty: 90 3RF allopurinol 100 mg tablet 100 mg PO DAILY Qty: 10 0RF Minerin Creme Cream 1 applic topical BID Qty: 113 0RF Rx Instructions: Apply to jackie lower legs polyethylene glycol 3350 [Miralax] 17 gram/dose Powder 17 g PO DAILY PRN (Reason: Constipation) acetaminophen 325 mg tablet 500 mg PO Q4H PRN (Reason: Mild Pain (1-3) Or Fever) docusate sodium 100 mg Capsule 100 mg PO Q12H PRN (Reason: constipation) gabapentin 300 mg capsule 300 mg PO TID Qty: 270 1RF bumetanide 1 mg tablet See Rx Instructions .ROUTE .COMPLEX Qty: 270 3RF Dose Instruction: TAKE 1 TABLET BY MOUTH 3 TIMES DAILY Rx Instructions: TAKE 1 TABLET BY MOUTH 3 TIMES DAILY oxycodone-acetaminophen [Percocet] 7.5-325 mg tablet 1 tablet PO Q6H PRN (Reason: pain) Qty: 30 0RF spironolactone 25 mg tablet 25 mg PO DAILY Qty: 30 0RF Follow-up/Referrals: Lilliana Tomas NP [Primary Care Provider] - Time of Disposition: 17:07
[2024-09-15] MEDS: SODIUM CHLORIDE 0.9% IV 1,000 ML 999 ML IV CONT (15:22)
--- NOTE | 2024-09-15 15:25 | PC.NURSE ---
pt is unable to urinate. this RN bladder scanned pt and found 293mL, EDP gave verbal order for arechiga catheter. pt is A&OX4 and refused the catheter
[2024-09-15 15:28] LABS: INR 1.8; Prothrombin Time 20.3 Seconds (11.1-14.7)
[2024-09-15 15:29] LABS: Partial Thromboplastin Time 37.2 Seconds (22.3-36.8)
--- OUTSIDE RECORDS SUMMARY | 2024-09-15 16:05 | XMS_ITS | Encounter Summary ---
Author Organization [facility] Address [address] [address] Phone Care Team Providers Care Sew Out Operator Name Role Phone Alicia Malcolm MD Primary Care Provider Reason for Visit * Reason Comments Med Refill Encounter Details Date Type Department Care Team (Late st Contact Info) Description 02/23/2019 Refill [facility] Nephrology and Hypertension [address] [place] [address], [address] [place], [place] [id number] Chester Longo MD [address] [facility], [address] [place] [address] Social History Tobacco Use Types Packs/Day Years [...] on filedocumented in this encounter Care Teams Sew Out Operator Relationship Specialty Start Date End Date Alicia Malcolm MD [address] [place] [address] PCP - General Internal Medicine 08/05/18 documented as of this encounter
--- OUTSIDE RECORDS SUMMARY | 2024-09-15 16:05 | XMS_ITS | Clinical Summary ---
Author Organization [facility] Address [address], [place] [address] Phone Care Team Providers Care Firebreak Cutter Name Role Phone Alicia Malcolm MD Primary Care Provider Allergies Active Allergy Reactions Criticality Noted Date Comments Codeine Nausea Only Low Other reaction(s): Vomiting Hydrocodone Nausea Only,Other (s ee comments) Low Penicillins Hives,Rash Medium Sulfa Antibiotics Rash Medium Medications omeprazole (PRILOSEC) [address] capsule 1 tab qday 2 Active ergocalciferol (VITAMIN D-2) 24152 units capsule 1 tab/cap every week for [...] on file Legal Sex Male 8:22 AM [facility] Gender Identity Not on file Sexual [...] Risk Completed 01/12/2020, 01/21/2019 Insurance [facility]ICARE [facility] MEDICARE SUPPLEMENT Care Teams Firebreak Cutter Relationship Specialty Start Date End Date Alicia Malcolm MD [address] [place] [address] PCP - General Internal Medicine 08/05/18
--- OUTSIDE RECORDS SUMMARY | 2024-09-15 16:05 | XMS_ITS | Encounter Summary ---
Author Organization [facility] Address [address] [address] Phone Care Team Providers Care Guest Room Inspector Name Role Phone Alicia Malcolm MD Primary Care Provider Encounter Details Date Type Department Care Team (Late st Contact Info) Description 09/17/2019 Telephone [facility] Nephrology and Hypertension [address] [facility], [address] [facility] [place] [address] Jacquie Al MA Social History Tobacco Use [...] on filedocumented in this encounter Care Teams Guest Room Inspector Relationship Specialty Start Date End Date Alicia Malcolm MD [address] [place] [address] PCP - General Internal Medicine 08/05/18 documented as of this encounter
--- OUTSIDE RECORDS SUMMARY | 2024-09-15 16:05 | XMS_ITS | Clinical Summary ---
Author Organization [facility] [address] Address [address] [place] [address] Care Team Providers Care Ventilating Equipment Installer Name Role Phone Alicia Malcolm MD Primary [...] TIMES DAILY 810 tablet 3 3 Active Eliquis 5 mg tablet Take 1 tablet (5 mg total) by mouth 2 (two) times a day 180 tablet 3 3 Active spironolactone (ALDACTONE) 25 mg tablet Take 1 tablet (25 mg total) by mouth daily 90 tablet 2 3 02/20/20 25 Active polyethylene glycol (MIRALAX) 17 gram/dose bulk powder Take 17 g by mouth daily Active metoprolol tartrate (LOPRESSOR) 50 mg immediate release tablet TAKE 1 TABLET BY MOUTH EVERY 12 HOURS 180 tablet 3 4 Active allopurinoL (ZYLOPRIM) 100 mg tablet [...] TABLET BY MOUTH DAILY 90 tablet 3 5 Active Active Problems Problem Noted Date Diagnosed [...] 04/06/2023 Assessment & Plan (02/05/2024 11:38 AM WASHROOM OPERATOR): Venous insufficiency noted to both lower extremities [...] Morbid obesity with BMI of 40.0-44.9, adult 0 09/2017 Hypertensive heart and kidney disease 03/23/2015 [...] Description 08/12/2024 10:45 AM CDT Office Visit [facility] at [address] [place] [address] Roseanne Chamberlain PA PVD (peripheral vascular disease) [...] on file Legal Sex Male 1:10 PM WASHROOM OPERATOR Gender Identity Not on file Sexual Orientation Not on file Obstetrics History Last Filed Vital Signs Vital Sign Reading Time Taken Comments Blood Pressure 104/62 08/12/2024 10:43 AM CDT Pulse 79 08/12/2024 10:43 AM CDT Temperature 36.8 C (98.2 F) 12/25/2019 11:12 AM CDT Respiratory Rate 15 02/04/2020 11:41 AM WASHROOM OPERATOR Oxygen Saturation 98% 08/12/2024 10:43 AM CDT [...] AA) Screen Completed 07/28/2021 [place] [address] [address] [place], [place] [id number] [place] [address] MEDICARE SUPPLEMENT Care Teams Ventilating Equipment Installer Relationship Specialty Start Date End Date Alicia Malcolm MD [address] [facility] [address] [place] [address] PCP - General Family Practice 05/14/24
--- OUTSIDE RECORDS SUMMARY | 2024-09-15 16:05 | XMS_ITS | Clinical Summary ---
Author Organization [facility] Address [address] [place] [address] Care Team Providers Care Merchant Police Name Role Phone Taco Ho MD Primary Care Provider [phone] Source Comments [facility] Affiliates and Associated Physician Practices is amultiple site organization consisting of ambulatory clinics and hospital sitesin [place], [place], [place] and [place]. This disclosure is being madepursuant to the Care Everywhere program and may not contain all information available regarding this patient. Last updated 17.[facility] [employer] Allergies Active Allergy Reactions Criticality Noted Date [...] fluticasone propionate (FLONASE) 50 MCG/ACT nasal spray [place] 1 spray into the nose once daily [...] on file Legal Sex Male 6:27 AM RECRUITING ADMINISTRATOR Gender Identity Not on file Sexual Orientation [...] this topic Medical Devices Implanted Type Area Smasher Hand Device Identifier Shelf Expiration Date Model / Serial / Lot Biomet Polyax Proximal Tibial/Distal Femoral Locking Plating System 5.5mm Ft Polyu Locking Screws Implanted:Qty: 2 on 08/02/2021 by Anibal Pressley DO at [facility] Right: Femur [id number] / / Biomet Polyax Proximal Tibial/Distal Femoral Locking Plating System 8.0mm Cannulated Locking Screw Implanted:Qty: 1 on 08/02/2021 by Anibal Pressley DO at [facility] Right: Femur [employer] [id number] / / Biomet Polyax Proximal Tibial/Distal Femoral Locking Plating System 4.5mm Solid Cortical Bone Screw, Ft Implanted:Qty: 2 on 08/02/2021 by Anibal Pressley DO at [facility] Right: Femur [id number] / / Biomet Polyax Proximal Tibial/Distal Femoral Locking Plating System 5.5mm Ft Polyu Locking Screws Implanted:Qty: 1 on 08/02/2021 by Anibal Pressley DO at [facility] Right: Femur [id number] / / Biomet Polyax Proximal Tibial/Distal Femoral Locking Plating System 5.5mm Ft Polyu Locking Screws Implanted:Qty: 1 on 08/02/2021 by Anibal Pressley DO at [facility] Right: Femur [id number] / / Wire K 1.6mm 6in Hlf Bynt Pnt Ss Fx Implanted:Qty: 2 on 08/02/2021 by Anibal Pressley DO at [facility] [employer] [id number] / / Screw 3.5mm 5mm 60mm Ft Rvrs Cut Flut Implanted:Qty: 1 on 08/02/2021 by Anibal Pressley DO at [facility] Right: Femur Dugra [employer] [id number] / / Screw 3.5mm 5mm 80mm Ft Rvrs Cut Flut Implanted:Qty: 1 on 08/02/2021 by Anibal Pressley DO at [facility] Right: Femur [employer] [id number] / / Plate 9 Hl Lck Precontr Fem Rt Dist Implanted:Qty: 1 on 08/02/2021 by Anibal Pressley DO at [facility] Right: Femur [employer] [id number] / / Screw 3.5mm 5mm 85mm Ft Rvrs Cut Flut Implanted:Qty: 1 on 08/02/2021 by Anibal Pressley DO at [facility] Right: Femur [employer] [id number] / / Screw 3.5mm 5mm 90mm Ft Rvrs Cut Flut Implanted:Qty: 1 on 08/02/2021 by Anibal Pressley DO at [facility] Right: Femur [employer] [id number] / / Biomet Polyax Proximal Tibiasl/Distal Femoral Lociking Plating System 5.5 Mm Ft Poly Locking Screw Implanted:Qty: 2 on 08/02/2021 by Anibal Pressley DO at [facility] Right: Femur [employer] [id number] / / Biomet Polyax Proximal Tibial/Diatal Femoral Locking Plating System 4.5mm Solid Cortical Bone Screw, Ft Implanted:Qty: 1 on 08/02/2021 by Anibal Pressley DO at [facility] Right: Femur [employer] [id number] / / Explanted Type Area Smasher Hand Device Identifier Shelf Expiration Date Model / Serial / Lot Wire K 2mm 228mm Troc Pnt Ss Prlc Plate Explanted:Qty: 2 on 08/02/2021 at [facility] Right: Femur [employer] 01/13/2031 [id number] / / [id number] Biomet Polyax Proximal Tibial/Distal Femoral Locking Plating System 5.5mm Ft Polyu Locking Screws Explanted:Qty: 2 on 08/02/2021 by Anibal Pressley DO at [facility] Right: Femur [id number] / / Biomet Polyax Proximal Tibial/Distal Femoral Locking Plating System 5.5mm Ft Polyu Locking Screws Explanted:Qty: 2 on 08/02/2021 by Anibal Pressley DO at [facility] Right: Femur [id number] / / Gd Pin Orth 3.2mm Polyax Fem Clbrt Lck Explanted:Qty: 1 on 08/02/2021 at [facility] [employer] [id number] / / Wshr Orth Ss 3.5-4 Mm Cecilia Screw Nonster Explanted:Qty: 3 on 08/02/2021 at [facility] [employer] [id number] / / Screw 3.5mm 5mm 85mm Ft Rvrs Cut Flut Explanted:Qty: 1 on 08/02/2021 by Anibal Pressley DO at [facility] Right: Femur [employer] [id number] / / Procedures Procedure Name Priority Date/Time Associated Diagnosis Comments HEPATITIS C AB SCREEN RFLX NAAT QUANT STAT 07/28/2021 1:43 PM CDT from Last 3 Months or Most Recently Relevant to Health Maintenance Results * HEPATITIS C AB SCREEN RFLX NAAT QUANT (07/28/2021 1:43 PM CDT) Hepatitis C Antibody Non-react oma Non-reac tive 07/28/2021 2:31 PM CDT [facility] Comment:Hepatitis C Antibody screen indicates no serologic [...] MD LAB - CHEMISTRY ORDERABLES nal Result [facility] [address] [place] [id number], [facility] [phone] from Last 3 Months or Most Recently Relevant to Health Maintenance Insurance MEDICARE [facility] [place] [address] [employer]THEM SELF PAY NO INSURANCE Member Subscriber Plan / Payer (Ef fective for All Dates) Name:Irwin Cyr Jr. Member ID:Not on file Relation to Subscriber:Not on file Name:IRWIN CYR JR. Subscriber ID:Not on file (Home) Address: [address] [place] [phone] Payer ID:Not on file Group ID:Not on file Type:Self Pay Address: [place], [place] MEDICARE Advance Directives * Full Code (Latest Code Status on File) Date Activated Date Inactivated Comments 07/29/2021 1:11 AM 08/11/2021 10:19 PM Care Teams Merchant Police Relationship Specialty Start Date End Date Taco Ho MD [address] [place] [address] PCP - General 08/07/21
--- OUTSIDE RECORDS SUMMARY | 2024-09-15 16:05 | XMS_ITS | Referral Summary ---
Author Organization [facility] [address] Address [address] [place] [address] Care Team Providers Care Java Development Manager Name Role Phone Alicia Malcolm MD Primary Care Provider Encounters Date Type Department Care Team Description 08/12/2024 10:45 AM CDT Office Visit [facility] V[facility] at [address] [place] [phone] Roseanne Chamberlain PA PVD (peripheral vascular disease) [...] 04/06/2023 Assessment & Plan (02/05/2024 11:38 AM PRINTER SLOTTER OPERATOR): Venous insufficiency noted to both lower [...] on file Legal Sex Male 1:10 PM PRINTER SLOTTER OPERATOR Gender Identity Not on file Sexual Orientation Not on file Last Filed Vital Signs Vital Sign Reading Time Taken Comments Blood Pressure 104/62 08/12/2024 10:43 AM CDT Pulse 79 08/12/2024 10:43 AM CDT Temperature 36.8 C (98.2 F) 12/25/2019 11:12 AM CDT Respiratory Rate 15 02/04/2020 11:41 AM PRINTER SLOTTER OPERATOR Oxygen Saturation 98% 08/12/2024 10:43 AM CDT Inhaled Oxygen Concentration - - Weight 148.3 kg (327 lb) 08/12/2024 10:43 AM CDT Height 185.4 cm (6' 1) 08/12/2024 10:43 AM CDT Body Mass Index 43.14 08/12/2024 10:43 AM CDT Plan of Treatment Not on file [place] [address] MED[address] [facility] MEDICARE SUPPLEMENT Care Teams Java Development Manager Relationship Specialty Start Date End Date Alicia Malcolm MD [address] [facility] [address] [place] [address] PCP - General Family Practice 05/14/24
--- OUTSIDE RECORDS SUMMARY | 2024-09-15 16:05 | XMS_ITS | Encounter Summary ---
Author Organization [facility] Address [address] [address] Phone Care Team Providers Care Stockroom Keeper Name Role Phone Alicia Malcolm MD Primary Care Provider Reason for Visit * Reason Comments Med Refill Encounter Details Date Type Department Care Team (Late st Contact Info) Description 05/25/2019 Refill [facility] Nephrology and Hypertension [address] [place] [address], [address] [place] [address] Chester Longo MD [address] [facility] [facility], [address] [place] [address] Social History Tobacco Use Types Packs/Day Years [...] on filedocumented in this encounter Care Teams Stockroom Keeper Relationship Specialty Start Date End Date Alicia Malcolm MD [address] [place] [address] PCP - General Internal Medicine 08/05/18 documented as of this encounter
[2024-09-15] MEDS: MORPHINE SULFATE (*CRX) 4 MG/ML INJ 2 MG IV PUSH (16:25)
[2024-09-15] MEDS: PANTOPRAZOLE SODIUM IV 40 MG VIAL IV PUSH (16:36)
--- NOTE | 2024-09-15 17:52 | ADMGEN ---
This patient, Irwin Cyr Jr., was admitted to Medical Room 257-. Patient/family oriented to hospital policies and general routines including ID bracelet, bed and alarms, visiting hours, pain management, procedures, bathroom and other care routines, personal items, smoking policy, room service/diet, and visiting hours. Information on how to activate the Rapid Response Team has been discussed. Patient/Family are encouraged to report perceived risks to care and to ask questions if they do not understand what they are told or what they should do.
[2024-09-15 18:19] LABS: Add Urine Microscopic? NO; Appearance Urine Clear (Clear); Bilirubin Urine Negative (Negative); Blood Urine Negative (Negative); Color Urine Yellow (Yellow); Glucose Urine UA Negative (Negative); Ketones Urine Negative (Negative); Leukocyte Esterase Ur Negative LEU/UL (Negative); Nitrate Urine Negative (Negative); Protein Urine Negative (Negative); Urobilinogen Urine 0.2 mg/dL (<2.0); pH Urine 6.5 (5.0-9.0)
[2024-09-15 18:53] LABS: Hematocrit 29.5 % (42.0-52.0)
[2024-09-15] MEDS: MORPHINE SULFATE (*CRX) 2 MG/ML INJ IV PUSH (20:03)
--- NOTE | 2024-09-15 21:12 | ECG_ITS ---
Test Date: 2024-09-16 09:00:19 Measurements Intervals [place] Rate: 61 P: 0 LA: 0 QRS: -79 QRSD: 202 T: 43 QT: 516 QTc: 521 Interpretive Statements ATRIAL FIBRILLATION WITH ABERRANT CONDUCTION OR VENTRICULAR PREMATURE COMPLEXES IVCD, FEATURES OF BOTH RIGHT BUNDLE BRANCH BLOCK AND LBBB BASELINE ARTIFACT- I, II, AVR, V4-V6 ABNORMAL ECG Compared to ECG 05/13/2024 17:43:28 Ventricular premature complex(es) now present HEART RATE HAS DECREASED Electronically Signed On 09-16-2024 09:42:38 CDT by Reid Hubbard D.O.
[2024-09-15] MEDS: ONDANSETRON INJ 4 MG/2 ML VIAL IV PUSH (22:14)
[2024-09-15] MEDS: fentaNYL CITRATE INJ (*CRX) 100 MCG/2 ML VIAL 25 MCG IV PUSH (22:15)
[2024-09-15] MEDS: DICYCLOMINE HCL 10 MG CAPSULE 20 MG PO (22:16)
[2024-09-15] MEDS: POTASSIUM CHLORIDE INJ 40 MEQ in SODIUM CHLORIDE 0.9% IV 500 ML 100 MEQ IVPB (22:16)
[2024-09-15] MEDS: FAMOTIDINE 20 MG TABLET PO (22:16)
[2024-09-15 23:18] LABS: Hemoglobin 9.2 g/dL (14.0-18.0)
[2024-09-15 23:41] LABS: Anion Gap 16 mmol/L (4-12); Blood Urea Nitrogen 116 mg/dL (9-20); Calcium 8.8 mg/dL (8.4-10.2); Carbon Dioxide 26 mmol/L (22-30); Chloride 86 mmol/L (98-107); Estimated CRCL calculation 30 ml/min; Estimated Glomerular Filt Rate 22; Glucose 113 mg/dL (65-110); Potassium 3.4 mmol/L (3.4-5.0); Sodium 128 mmol/L (137-145)
[2024-09-15 23:45] LABS: Iron 41 ug/dL (49-181)
[2024-09-15 23:55] LABS: Percent Iron Saturation 10 % (20-50)
[2024-09-16] MEDS: MORPHINE SULFATE (*CRX) 2 MG/ML INJ IV PUSH ×2 (00:32→09:00)
[2024-09-16 00:43] LABS: Folic Acid 14.4 ng/mL (2.76->20)
--- NOTE | 2024-09-16 01:14 | P.HP_ITS ---
H&P: HPI History of Present Illness Date/Time: 09/16/24 01:14 Chief Complaint: GI Bleed, melena Narrative: This is a 74 year old male patient with a history of CKD, HTN, CHF, Hypothyroidism, GERD, atrial fibrillation who underwent a recent Right BKA due to chronic wounds with peripheral vascular disease. Patient is admitted to the hospital due to left lower quadrant abdominal pain with black and bloody bowel movement and rectal pain. Patient denies fever or chills. He reports he is using his motorized scooter and slide board for transfers. His pain has been going on for a couple days and not improving. He denies difficulty breathing or chest pain. Review of Systems Review of Systems: All systems reviewed & are unremarkable except as noted in HPI and below PMFSH Past Medical History Medical History Hyponatremia Self-care deficit Peripheral vascular disease Morbid obesity with body mass index (BMI) of 40.0 or higher Neuropathic pain Gout Sepsis Chronic acquired lymphedema Chronic anemia Obstructive sleep apnea Atrial fibrillation Lymphedema of both lower extremities Environmental allergies Ocular rosacea Rosacea Chronic low back pain Chronic venous insufficiency GERD without esophagitis Chronic congestive heart failure Echocardiogram in May 2021 was technically difficult and showed normal LV systolic function with an EF of 60 to 65%, severely enlarged RV chamber with moderate to severely reduced RV systolic function, severe biatrial enlargement, and moderate pulmonary hypertension. Dyslipidemia Essential (primary) hypertension Peripheral polyneuropathy Hypothyroidism Surgical History Surgical History History of carpal tunnel release History of thoracic surgery Pericardial effusion s/p pericardial window thought secondary to minoxidil, in 2010 at [facility]. H/O eye surgery (~2005) [id number] [facility] History of foot surgery Left Foot History of cholecystectomy (2008) History of rotator cuff surgery Bilateral. History of discectomy (2012) Family History Family History Father Cardiovascular disease Grandparent Cancer Mother COPD (chronic obstructive pulmonary disease) Social History Social History Social History: Surrogate medical decision maker: Shyla Hurst, daughter. Code status: Full code. Caffeine-decalf coffee, diet soda Smoking packs per day: 2 Smoking cigarettes per day: 40.0 Years smoked: 20 Smoking pack-years: 40.00 Smoking status: Former smoker Second hand tobacco smoke exposure: No Additional smoking assessment comments: 1979 Alcohol intake: never Alcohol use details: One beer daily. Substance use: never Substance use type: does not use Do You Feel Safe in your Home?: Yes Lack of Transportation: No Lack of Food: Never True Current Housing: I Have Housing Concerned About Future Housing: No Difficulty Paying Gas/Electric Bills: No Difficulty Paying for Meds: No Currently Unemployed: No Education: Associate Degree Difficulty w/ Childcare or Family Care: No Living arrangements: alone Additional living arrangements comments: Lives in own home in [place]. Uses a motorized scooter and transfers with slide board. Occupation/Education: retired Additional occupation/education comments: Retired. 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 Spiritual care concerns: No Meds Home Medications and Allergies Home Medications ?Medication ?Instructions ?Recorded ?Confirmed ?Type loratadine 10 mg tablet (Claritin) 10 mg PO DAILY PRN allergy symptoms 07/12/20 09/15/24 History polyethylene glycol 3350 17 17 g PO DAILY PRN Constipation 06/02/21 09/15/24 History gram/dose oral powder (Miralax) apixaban 5 mg tablet (Eliquis) 5 mg PO Q12HR #180 tabs 01/19/22 09/15/24 Rx metoprolol tartrate 50 mg tablet 50 mg PO Q12HR #180 tabs 01/19/22 09/15/24 Rx acetazolamide 250 mg tablet 250 mg PO DAILY 11/19/22 09/15/24 History fluticasone propionate 50 1 spray intranasal DAILY Congestion 11/19/22 09/15/24 History mcg/actuation nasal spray,suspension (Flonase Allergy Relief) lanolin alcohols-mineral 1 applic topical BID #113 grams 03/25/23 09/15/24 Rx oil-w.petrolatum-ceresin topical cream (Minerin Creme topical) spironolactone 25 mg tablet 25 mg PO DAILY #30 tabs 04/06/23 09/15/24 Rx calcitriol 0.25 mcg capsule 0.25 mcg PO 3XW #36 caps 10/30/23 09/15/24 Rx docusate sodium 100 mg capsule 100 mg PO Q12H PRN constipation 05/13/24 09/15/24 History gabapentin 300 mg capsule 300 mg PO TID #270 caps 05/14/24 09/15/24 Rx bumetanide 1 mg tablet See Rx Instructions .Route 06/29/24 09/15/24 Rx .COMPLEX #270 tabs allopurinol 100 mg tablet 100 mg PO DAILY #10 tabs 08/04/24 09/15/24 Rx famotidine 20 mg tablet 20 mg PO BID #180 tabs 08/04/24 09/15/24 Rx levothyroxine 200 mcg tablet 200 mcg PO DAILY #90 tabs 08/04/24 09/15/24 Rx metolazone 5 mg tablet 5 mg PO DAILY 08/04/24 09/15/24 History minoxidil 2.5 mg tablet 2.5 mg PO DAILY 08/04/24 09/15/24 History potassium chloride 10 mEq 10 meq PO DAILY 08/04/24 09/15/24 History capsule,extended release tamsulosin 0.4 mg capsule 0.4 mg PO QAM #90 caps 08/04/24 09/15/24 Rx acetaminophen 500 mg capsule 500 mg PO Q6H PRN fever or pain 09/15/24 09/15/24 History bisacodyl 10 mg rectal suppository 10 mg RECTAL DAILY PRN constipation 09/15/24 09/15/24 History (Dulcolax (bisacodyl)) scopolamine base 1 mg over 3 days 1 patch transdermal Q72H 09/15/24 09/15/24 History transdermal patch Allergies Allergy/AdvReac Type Severity Reaction Status Date / Time Sulfa (Sulfonamide Allergy Mild Rash Verified 09/15/24 14:05 Antibiotics) Penicillins Allergy Unknown SWELLING Verified 09/15/24 14:05 codeine AdvReac Mild N/V Verified 09/15/24 14:05 hydrocodone AdvReac Mild N/V Verified 09/15/24 14:05 oxycodone (From OxyContin) AdvReac Mild Nausea Verified 09/15/24 14:05 tramadol AdvReac Mild Nausea Verified 09/15/24 14:05 Vital Signs Vital Signs - 24 hr 09/15/24 13:58 09/15/24 15:01 09/15/24 15:09 Temperature 36.4 C Pulse Rate 72 69 77 Respiratory Rate 14 16 16 Blood Pressure 103/60 99/52 L 94/70 L Pulse Oximetry 100 98 98 Oxygen Delivery Room Air Oxygen Flow Rate 09/15/24 15:31 09/15/24 16:01 09/15/24 16:09 Temperature Pulse Rate 71 75 72 Respiratory Rate 18 14 20 Blood Pressure 106/57 L 104/62 100/64 Pulse Oximetry 97 95 100 Oxygen Delivery Oxygen Flow Rate 09/15/24 17:01 09/15/24 17:38 09/15/24 17:50 Temperature 36.8 C Pulse Rate 73 71 Respiratory Rate 12 16 Blood Pressure 102/60 101/54 L Pulse Oximetry 95 100 Oxygen Delivery Room Air Oxygen Flow Rate 09/15/24 20:00 09/15/24 21:05 09/15/24 21:11 Temperature 36.5 C Pulse Rate 76 Respiratory Rate 20 Blood Pressure 107/58 L Pulse Oximetry 98 100 98 Oxygen Delivery CPAP CPAP Oxygen Flow Rate 4 4 09/15/24 21:12 Temperature Pulse Rate 76 Respiratory Rate Blood Pressure Pulse Oximetry 98 Oxygen Delivery CPAP Oxygen Flow Rate Exam Narrative: GENERAL: Well-appearing, well-nourished, and in no acute distress. HEENT: Normocephalic, atraumatic, PERRL, EOMI CHEST: Clear to auscultation. No respiratory distress. HEART: Regular rate and rhythm. No murmur heard. ABDOMEN: Soft, tenderness to palpation left lower quadrant, no guarding or rebound. Abdomen is nondistended, normal active bowel sounds. : Black stool that is guaiac positive in ER EXTREMITIES: Normal range of motion below-knee amputation right lower extremity. No edema. SKIN: Warm, dry, no rash. NEURO: No focal deficits. Alert and oriented x3. H&P: Results Labs Labs: Short CBC 09/15/24 09/15/24 09/15/24 Range/Units 14:18 18:49 23:12 WBC 15.1 H (4.5-10.0) K/mm3 Hgb 9.3 L 9.0 L 9.2 L (14.0-18.0) g/dL Hct 30.5 L 29.5 L 30.0 L (42.0-52.0) % Plt Count 565 H (150-375) k/mm3 BMP 09/15/24 09/15/24 14:18 23:12 Sodium 128 L 128 L Potassium 3.0 L 3.4 Chloride 83 L 86 L Carbon Dioxide 29 26 BUN 119 H* D 116 H* Creatinine 2.75 H 2.85 H Glucose 120 H 113 H Calcium 9.1 8.8 Liver Function 09/15/24 Range/Units 14:18 Total Bilirubin 0.4 (0.2-1.3) mg/dL AST 20 (17-59) U/L ALT 17 (6-50) U/L Alkaline Phosphatase 72 (38-126) U/L Albumin 4.1 (3.5-5.1) g/dL Urine 09/15/24 Range/Units 17:43 Urine Color Yellow (Yellow) Urine Appearance Clear (Clear) Urine pH 6.5 (5.0-9.0) Ur Specific [place] 1.010 (1.001-1.035) Urine Protein Negative (Negative) mg/dL Urine Glucose (UA) Negative (Negative) mg/dL Pulse Oximetry SpO2 results: 98% on 4 Liters with CPAP at night, room air during the day--chronic home orders Attestation: I personally reviewed and interpreted this pulse oximetry as fol lows: Interpretation: continue oxygen bleed in on CPAP, room air when awake ECG Interpretation: Ordered EKG but not yet completed Imaging CT scan - abdomen: Radiologist's impression: CT abdomen pelvis wo con Ordering provider: Panda Jesus MD History: 74 years Male with . Abdominal pain GI bleed . Comparison: April 20, 2022 Technique: CT abdomen and pelvis with IV and without oral contrast. Automated exposure control and iterative reconstruction technique were employed. The dose- length product was 1573.21 mGy-cm. 100 mL Omnipaque 350 was given IV. Findings: VISUALIZED LOWER CHEST: Slight cardiomegaly. UPPER ABDOMINAL ORGANS: Liver: Hepatomegaly. Hypodensity in the right lower lobe measuring 1.6 cm which is unchanged from previous examination. Gallbladder: Status post cholecystectomy. Spleen: Normal. Stomach/duodenum: Normal. Pancreas: Normal. Adrenals: Normal. Kidneys: Tiny calcific area in the right kidney upper pole unchanged from previous examination. PELVIC ORGANS: The bladder is normal. BOWEL AND MESENTERY: Colon: Fecal material is impacted in the rectum with thickening of the wall of the colon suggestive of proctitis. Fat stranding also seen around the rectum. Fecal material is loaded in the colon..Appendix is not demonstrated. Small Bowel: Normal. No obstruction. Peritoneum/mesentery: No free air or free fluid. No mesenteric lymphadenopathy. RETROPERITONEUM: Mild atheromatous disease of the abdominal aorta. No retroperitoneal lymphadenopathy. Small para-aortic lymph nodes are noted. MUSCULOSKELETAL: Superficial soft tissues: Fat containing umbilical and supraumbilical hernias are noted. The superficial soft tissues are normal. Bones: Age appropriate degenerative changes of the spine. Right sacroiliitis. IMPRESSION: 1. No evidence of appendicitis, diverticulitis or intestinal obstruction. 2. Hepatomegaly. 3. Hypodensity in the liver which may be a cyst. Unchanged from previous examination. 4. Tiny calcific area in the right kidney upper pole unchanged from previous examination. 5. Constipation with proctitis. Reviewed, dictated and finalized at location A. Assessment and Plan Assessment and plan (1) GI (gastrointestinal bleed): Code(s): K92.2 - Gastrointestinal hemorrhage, unspecified Status: Acute Assessment and Plan: -Recent black and bloody stools with significantly elevated BUN -Guaiac positive in ER -LLQ abdominal pain and rectal pain -CT imaging with fecal stasis and inflammation consistent with proctitis -GI consulted, Dr. 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 Status: Acute Assessment and Plan: -On Eliquis 5 mg BID for atrial fibrillation -Hold anticoagulation for now (3) Hypokalemia: Code(s): E87.6 - Hypokalemia Status: Acute Assessment and Plan: -Potassium 3.0 on admit, ordered IV potassium 40 mEq at 100 ml/hr overnight -Improved to 3.6 by morning (4) Hyponatremia: Code(s): E87.1 - Hypo-osmolality and hyponatremia Status: Chronic Assessment and Plan: -Chronic hyponatremia normally 130-135, was 128 on admission -Improved to 131 by morning (5) Benign hypertension with chronic kidney disease: Code(s): I12.9 - Hypertensive chronic kidney disease with stage 1 through stage 4 chronic kidney disease, or unspecified chronic kidney disease Status: Chronic Assessment and Plan: -BP soft on admit -Restart metoprolol in AM (6) Chronic kidney disease, stage IV (severe): Code(s): N18.4 - Chronic kidney disease, stage 4 (severe) Status: Chronic Assessment and Plan: -JENA on CKD noted on admit -Most of his home medications are nephrotoxic -continue spironolactone, hold Bumex and acetazolamide as he seems over-diuresed -Consider restarting meds as tolerated (7) History of chronic CHF: Code(s): Z86.79 - Personal history of other diseases of the circulatory system Status: Chronic Assessment and Plan: -No dyspnea or pulmonary edema noted on admit -Watch for fluid overload with diuretics on hold Plan GI to consult, possible EGD or bowel prep for colonoscopy. H&H has been steady overnight. Quality VTE Prophylaxis VTE prophylaxis: mechanical ordered If No VTE Prophylaxis Answer both mechanical and pharmacologic: Reason no pharmacologic proph: medical contraindication active bleeding/bleeding risk Hospitalist MIPS Advance Care Plan I have confirmed that the patient's Advanced Care Plan is present, code status is documented, or surrogate decision maker is listed in patient medical record.: Yes Medication Reconciliation I have utilized all available resources to obtain, update and review the patients current medications (includes all prescriptions, OTC, herbals, cannabis, and nutritional supplements).: Yes
[2024-09-16 01:33] LABS: Erythrocyte Sedimentation Rate > 140 mm/hr (0-20)
[2024-09-16] MEDS: fentaNYL CITRATE INJ (*CRX) 100 MCG/2 ML VIAL 25 MCG IV PUSH ×2 (04:17→15:55)
[2024-09-16 04:49] VITALS: BP 105/57; PULSE 76; RESP 20; TEMP 36.2; O2SAT 100
[2024-09-16 04:52] LABS: Fractional Inspired Oxygen 36 %; HCO3 VBG 28.2 mEq/l (24.0-30.0); PCO2 VBG 48.1 mmHg (42.0-48.0); pH VBG 7.386 (7.300-7.400)
[2024-09-16 05:06] LABS: Device OTHER DEVICE; PO2 VBG < 27.0 mmHg (35.0-45.0)
[2024-09-16 05:08] LABS: Basophils Absolute Auto 0.1 K/mm3 (0.0-0.1); Basophils Percent Auto 0.6 % (0.2-1.2); Eosinophils Absolute Auto 0.4 K/mm3 (0-0.3); Eosinophils Percent Auto 3.1 % (0-4.4); Hematocrit 30.9 % (42.0-52.0); Hemoglobin 9.2 g/dL (14.0-18.0); Immature Granulocyte Percent A 0.8 % (0-0.5); Lymphocytes Absolute Auto 0.56 K/mm3 (0.9-3.2); Lymphocytes Percent Auto 4.7 % (18.3-44.2); Mean Corpuscular HGB Conc 29.8 g/dl (32-36); Mean Corpuscular Hemoglobin 24.9 pg (26-34); Mean Corpuscular Volume 83.5 fl (80-100); Mean Platelet Volume 9.9 fl (7.4-10.4); Monocytes Absolute Auto 0.8 K/mm3 (0.1-0.6); Monocytes Percent Auto 6.7 % (2.6-8.5); Neutrophils Absolute Auto 10.1 K/mm3 (1.3-6.7); Neutrophils Percent Auto 84.1 % (45.5-73.1); Platelet Count Result 501 k/mm3 (150-375); Red Cell Distribution Width 15.3 % (11.5-14.5)
[2024-09-16 05:25] LABS: Lactic Acid Reflex 0.7 mmol/L (0.7-2.0)
[2024-09-16 05:26] LABS: INR 1.5; Prothrombin Time 18.3 Seconds (11.1-14.7)
[2024-09-16 05:39] LABS: Band Neutrophils Percent 0 % (0-6); Hypochromasia 1+; Ovalocytes 1+; Platelet Estimate Increased (Adequate); Schistocytes None Seen
[2024-09-16 05:42] LABS: Anion Gap 15 mmol/L (4-12); Blood Urea Nitrogen 110 mg/dL (9-20); CRP 6.5 mg/dL (<1.0); Calcium 8.8 mg/dL (8.4-10.2); Carbon Dioxide 27 mmol/L (22-30); Chloride 89 mmol/L (98-107); Estimated CRCL calculation 32 ml/min; Estimated Glomerular Filt Rate 23; Glucose 99 mg/dL (65-110); Potassium 3.6 mmol/L (3.4-5.0); Sodium 131 mmol/L (137-145)
[2024-09-16 05:51] LABS: Procalcitonin 0.5 ng/mL
[2024-09-16 06:25] VITALS: PULSE 78
[2024-09-16] MEDS: METOPROLOL TARTRATE 50 MG TAB PO ×2 (06:25→20:11)
[2024-09-16] MEDS: LEVOTHYROXINE SODIUM 100 MCG TABLET 200 MCG PO (06:26)
[2024-09-16] MEDS: ONDANSETRON INJ 4 MG/2 ML VIAL IV PUSH (09:00)
[2024-09-16] MEDS: DICYCLOMINE HCL 10 MG CAPSULE 20 MG PO ×3 (09:05→20:11)
[2024-09-16] MEDS: PANTOPRAZOLE SODIUM IV 40 MG VIAL IV PUSH (09:06)
--- NOTE | 2024-09-16 10:25 | P.PNIM_ITS ---
Progress Note: A&P Assessment and Plan (1) GI (gastrointestinal bleed): Code(s): K92.2 - Gastrointestinal hemorrhage, unspecified Status: Acute Assessment and Plan: -Recent black and bloody stools with significantly elevated BUN -Guaiac positive in ER -LLQ abdominal pain and rectal pain -CT imaging with fecal stasis and inflammation consistent with proctitis -GI consulted, Dr. Brito to see in the morning -Patient clear liquid diet on admit, NPO after midnight waiting for GI consult IV fluids NPO (2) Chronic anticoagulation: Code(s): Z79.01 - roasterman (current) use of anticoagulants Status: Acute Assessment and Plan: -On Eliquis 5 mg BID for atrial fibrillation -Hold anticoagulation for now (3) Hypokalemia: Code(s): E87.6 - Hypokalemia Status: Acute Assessment and Plan: -Potassium 3.0 on admit, ordered IV potassium 40 mEq at 100 ml/hr overnight -Improved to 3.6 by morning - trend with daily labs (4) Hyponatremia: Code(s): E87.1 - Hypo-osmolality and hyponatremia Status: Chronic Assessment and Plan: -Chronic hyponatremia normally 130-135, was 128 on admission -Improved to 131 by morning (5) Benign hypertension with chronic kidney disease: Code(s): I12.9 - Hypertensive chronic kidney disease with stage 1 through stage 4 chronic kidney disease, or unspecified chronic kidney disease Status: Chronic Assessment and Plan: -BP soft on admit -Restart metoprolol in AM (6) Chronic kidney disease, stage IV (severe): Code(s): N18.4 - Chronic kidney disease, stage 4 (severe) Status: Chronic Assessment and Plan: -JENA on CKD noted on admit -Most of his home medications are nephrotoxic -continue spironolactone, hold Bumex and acetazolamide as he seems over-diuresed -Consider restarting meds as tolerated (7) History of chronic CHF: Code(s): Z86.79 - Personal history of other diseases of the circulatory system Status: Chronic Assessment and Plan: -No dyspnea or pulmonary edema noted on admit -Watch for fluid overload with diuretics on hold (8) Venous stasis ulcer of right foot: Code(s): I83.015 - Varicose veins of right lower extremity with ulcer other part of foot Status: Acute Assessment and Plan: - ankle XR: Lucency over the right lateral malleolus. Follow-up advised. 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 - tib fib XR: No definite acute osseous abnormality right leg. Lucencies in the area of the medial and lateral malleoli which may be summation shadows. Clinical correlation and follow-up advised.. - foot XR: Extensive soft tissue swelling. No definite evidence for osteomyelitis. - started on Levaquin and Flagyl on 08/20/2024. Reviewed micro and patient has history of Pseudomonas and Staph with multiple resistances in March of 2024. Previously placed on meropenem after case was reviewed with ID pharmacist during the patient's most recent admission in May of 2024. Will place patient back on meropenem as well as vancomycin and obtain wound culture. - wound RN consulted. Recommendations: daily cleanse right lower leg and foot by the 5th toe, apply antifungal powder to open weeping maceration areas. place ABD pads and roll gauze cover if patient allows, if not place nito pads under and over foot and leg to control exudate and change daily and PRN if heavily soiled. -Surgery consulted, plan for a below-knee amputation of the right leg, added to surgery schedule for tomorrow. HOLD eliquis. DVT prophylaxis Lovenox 40 mg subq daily. -Blood cultures no growth to date. -Right BKA scheduled today. (9) Peripheral vascular disease: Code(s): I73.9 - Peripheral vascular disease, unspecified Status: Acute Assessment and Plan: - follows with Chris DE LEON with vascular surgery. Reportedly told at most recent visit on XX that there were no further interventions to increased blood flow to his affected extremity as the disease is below the knee. (10) CHF (congestive heart failure): Qualifiers: Heart failure chronicity: chronic Heart failure type: diastolic Qualified Code(s): I50.32 - Chronic diastolic (congestive) heart failure Code(s): I50.9 - Heart failure, unspecified Status: Chronic Assessment and Plan: - echo, previous: Estimated EF 65-70%, grade 1 diastolic dysfunction. Technically difficult echo. See report for details. - continue home medications: Bumex (adjusting administration times to help patient get improved sleep), metolazone, spironolactone. Hold Diamox, contraindicated in CKD stage 4. - monitor I&Os daily weights (11) Atrial fibrillation: Qualifiers: Atrial fibrillation type: longstanding persistent Qualified Code(s): I48.11 - Longstanding persistent atrial fibrillation Code(s): I48.91 - Unspecified atrial fibrillation Status: Chronic Assessment and Plan: - continue home medications: Eliquis and Metoprolol. - Eliquis is on hold for surgery later in week, right BKA. - Lovenox 40 mg subq daily, hold dose 08/25 AM. (12) Chronic anemia: Code(s): D64.9 - Anemia, unspecified Status: Acute Assessment and Plan: - Hgb 8.8, previously 8.4 on 05/19/2024. At baseline. - transfuse if <7. - monitor (13) CKD (chronic kidney disease) stage 3, GFR 30-59 ml/min: Qualifiers: Chronic kidney disease stage 3 subtype: stage 3b (GFR 30-44) Qualified Code(s): N18.32 - Chronic kidney disease, stage 3b Code(s): N18.3 - Chronic kidney disease, stage 3 (moderate) Status: Acute Assessment and Plan: - creatinine 1.82 and GFR 36, previously 2.23 and GFR 29 on 05/19/2024 - trend renal function - trend electrolytes, correct as needed (14) Essential (primary) hypertension: Code(s): I10 - Essential (primary) hypertension Status: Chronic Assessment and Plan: - chronic, currently 127/56. - continue home medications: Metoprolol - monitor (15) AMELIA (obstructive sleep apnea): Code(s): G47.33 - Obstructive sleep apnea (adult) (pediatric) Status: Acute Assessment and Plan: - continue home CPAP Plan GI to consult, possible EGD or bowel prep for colonoscopy. H&H has been steady overnight. Time Spent With Patient Time with patient: 25 - 35 minutes Subjective Date/time seen: 09/16/24 10:25 Interval history: 74 year old male patient with a history of CKD, HTN, CHF, Hypothyroidism, GERD, atrial fibrillation who underwent a recent Right BKA due to chronic wounds with peripheral vascular disease. Pt is admitted for left lower quadrant abdominal pain with black and bloody bowel movement and rectal pain. Patient denies fever or chills. Pt is seen and examined. GI is consulted, pt is NPO. Kay is on hold. EGD/Colonoscopy tomorrow-undergoing bowel prep. Review of Systems Review of Systems: All systems reviewed & are unremarkable except as noted in HPI and below Exam Narrative: GENERAL: Well-appearing, well-nourished, and in no acute distress. HEENT: Normocephalic, atraumatic, PERRL, EOMI CHEST: Clear to auscultation. No respiratory distress. HEART: Regular rate and rhythm. No murmur heard. ABDOMEN: Soft, tenderness to palpation left lower quadrant, no guarding or r ebound. Abdomen is nondistended, normal active bowel sounds. : Black stool that is guaiac positive in ER EXTREMITIES: Normal range of motion below-knee amputation right lower extremity. No edema. SKIN: Warm, dry, no rash. NEURO: No focal deficits. Alert and oriented x3. Const: General: no acute distress and uncomfortable Resp: Effort & Inspection: normal respiratory effort Auscultation: clear to auscultation bilaterally Other: Speaking in complete sentences. Cardio: Rate: regular rate Rhythm: regular rhythm GI: GI Palp: Yes Soft to palpation Auscultation: normal bowel sounds Skin: Other: RLE erythema improving, ulcer on dorsal foot between the first and second digit extending to the metatarsal region with scant purulence drainage and a soft overlying necrotic eschar. Chronic lymphedema with chronic venous stasis skin changes and dermatitis to the right lower leg. Neuro: Speech: normal speech Extrem: Other: Bilateral lower extremities with chronic lymphedema and venous stasis dermatitis. Erythema improving to right lower extremity. Psych: Mental Status: mental status grossly normal Affect: normal affect Objective Data Vital Signs Vital Signs: Vital Signs - 24 hr 09/15/24 13:58 09/15/24 15:01 09/15/24 15:09 Temperature 97.6 F Pulse Rate 72 69 77 Respiratory Rate 14 16 16 Blood Pressure 103/60 99/52 L 94/70 L Pulse Oximetry 100 98 98 Oxygen Delivery Room Air Oxygen Flow Rate 09/15/24 15:31 09/15/24 16:01 09/15/24 16:09 Temperature Pulse Rate 71 75 72 Respiratory Rate 18 14 20 Blood Pressure 106/57 L 104/62 100/64 Pulse Oximetry 97 95 100 Oxygen Delivery Oxygen Flow Rate 09/15/24 17:01 09/15/24 17:38 09/15/24 17:50 Temperature 98.2 F Pulse Rate 73 71 Respiratory Rate 12 16 Blood Pressure 102/60 101/54 L Pulse Oximetry 95 100 Oxygen Delivery Room Air Oxygen Flow Rate 09/15/24 20:00 09/15/24 21:05 09/15/24 21:11 Temperature 97.7 F Pulse Rate 76 Respiratory Rate 20 Blood Pressure 107/58 L Pulse Oximetry 98 100 98 Oxygen Delivery CPAP CPAP Oxygen Flow Rate 4 4 09/15/24 21:12 09/16/24 04:49 09/16/24 06:25 Temperature 97.2 F L Pulse Rate 76 76 78 Respiratory Rate 20 Blood Pressure 105/57 L Pulse Oximetry 98 100 Oxygen Delivery CPAP Oxygen Flow Rate Intake/Output Intake/Output: Intake & Output 09/13/24 09/14/24 09/15/24 09/16/24 23:59 23:59 23:59 23:59 Intake Total 1000 420 Output Total 400 Balance 1000 20 Meds/Results Medications: Active Medications Generic Name Dose Route Start Last Admin Trade Name Freq PRN Reason Stop Dose Admin Acetaminophen 1,000 mg 09/15/24 18:59 Acetaminophen 500 Mg Tablet PO Q6H PRN Mild Pain (1-3) or Fever Dicyclomine HCl 20 mg 09/15/24 18:59 09/16/24 09:05 Dicyclomine Hcl 10 Mg Capsule PO 20 mg QID PRN Administration Abdominal Cramping Docusate Sodium 100 mg 09/15/24 21:15 Docusate Sodium 100 Mg Capsule PO Q12HR PRN constipation Famotidine 20 mg 09/15/24 21:15 09/15/24 22:16 Famotidine 20 Mg Tablet PO 20 mg Q12HR ANGELA Administration Fentanyl Citrate 25 mcg 09/15/24 18:59 09/16/24 04:17 Fentanyl Citrate Inj (*Crx) 100 Mcg/2 Ml Vial IV PUSH 25 mcg Q4H PRN Administration Pain Rated 7-10 Fluticasone Propionate 1 spray 09/16/24 09:00 Fluticasone Propionate 0.05% Na Spr 16 Gm Btl (*Bkc) NASAL DAILY ANGELA Levothyroxine Sodium 200 mcg 09/16/24 06:30 09/16/24 06:26 Levothyroxine Sodium 100 Mcg Tablet PO 200 mcg DAILY@0630 [facility] Administration Loratadine 10 mg 09/15/24 21:12 Loratadine 10 Mg Tablet PO DAILY PRN allergy symptoms Metoprolol Tartrate 50 mg 09/16/24 09:00 09/16/24 06:25 Metoprolol Tartrate 50 Mg Tab PO 50 mg Q12HR [facility] Administration Minoxidil 2.5 mg 09/16/24 09:00 Minoxidil 2.5 Mg Tablet PO DAILY [facility] Morphine Sulfate 2 mg 09/15/24 19:00 09/16/24 09:00 Morphine Sulfate (*Crx) 2 Mg/Ml Inj IV PUSH 2 mg Q4H PRN Administration Pain Rated 4-6 Multi-Ingred Cream/Lotion/Oil/Oint 1 applic 09/16/24 09:00 Eucerin Cream 120 Gm Jar TOPICAL BID [facility] Ondansetron HCl 4 mg 09/15/24 17:08 09/16/24 09:00 Ondansetron Inj 4 Mg/2 Ml Vial IV PUSH 4 mg Q4H PRN Administration Nausea Pantoprazole Sodium 40 mg 09/16/24 09:00 09/16/24 09:06 Pantoprazole Sodium Iv 40 Mg Vial IV PUSH 40 mg QAM [facility] Administration Polyethylene Glycol 17 gm 09/15/24 21:12 Polyethylene Glycol 3350 17 Gm Powd.Pack PO DAILY PRN Constipation Spironolactone 25 mg 09/16/24 09:00 Spironolactone 25 Mg Tablet PO DAILY [facility] Tamsulosin HCl 0.4 mg 09/16/24 09:00 Tamsulosin Hcl 0.4 Mg Capsule PO QAM [facility] Radiology Results: ITS Impressions Abdomen/Pelvis CT 09/15/24 16:02 IMPRESSION: 1. No evidence of appendicitis, diverticulitis or intestinal obstruction. 2. Hepatomegaly. 3. Hypodensity in the liver which may be a cyst. Unchanged from previous examination. 4. Tiny calcific area in the right kidney upper pole unchanged from previous examination. 5. Constipation with proctitis. Labs Labs: Laboratory Results - last 24 hr 09/15/24 09/15/24 09/15/24 14:18 15:11 17:43 WBC 15.1 H RBC 3.70 L Hgb 9.3 L Hct 30.5 L MCV 82.4 MCH 25.1 L MCHC 30.5 L RDW 15.3 H Plt Count 565 H MPV 9.3 Immature Gran % (Auto) 0.8 H Neut % (Auto) 87.1 H Lymph % (Auto) 4.0 L [place] % (Auto) 5.7 Eos % (Auto) 2.0 Baso % (Auto) 0.4 Lymph # (Auto) 0.60 L [place] # (Auto) 0.9 H Eos # (Auto) 0.3 Baso # (Auto) 0.1 Abs Immat Gran (auto) 0.12 H Absolute Neuts (auto) 13.2 H Absolute Nucleated RBC 0.000 Band Neutrophils % Not Reportable Nucleated RBC % 0.0 Platelet Estimate Increased Polychromasia 1+ Hypochromasia Anisocytosis 1+ Tear Drop Cells 1+ Ovalocytes 1+ Schistocytes Rare ESR PT 20.3 H INR 1.8 APTT 37.2 H VBG pH VBG pCO2 VBG pO2 VBG HCO3 O2 Delivery Device O2 Liters/Min FiO2 Sodium 128 L Potassium 3.0 L Chloride 83 L Carbon Dioxide 29 Anion Gap 16 H BUN 119 H* D Creatinine 2.75 H Estim Creat Clear Calc 30 Estimated GFR 23 L Glucose 120 H Lactic Acid Calcium 9.1 Magnesium Iron TIBC % Saturation Ferritin Total Bilirubin 0.4 AST 20 ALT 17 Alkaline Phosphatase 72 C-Reactive Protein Total Protein 7.5 Albumin 4.1 Lipase 239 Vitamin B12 Folate Procalcitonin Urine Color Yellow Urine Appearance Clear Urine pH 6.5 Ur Specific [place] 1.010 Urine Protein Negative Urine Glucose (UA) Negative Urine Ketones Negative Ur Blood (Man) Negative Urine Nitrate Negative Urine Bilirubin Negative Urine Urobilinogen 0.2 Leukocyte Esterase Rfl Negative Blood Type A Positive Antibody Screen Negative 09/15/24 09/15/24 09/16/24 18:49 23:12 04:38 WBC RBC Hgb 9.0 L 9.2 L Hct 29.5 L 30.0 L MCV MCH MCHC RDW Plt Count MPV Immature Gran % (Auto) Neut % (Auto) Lymph % (Auto) [place] % (Auto) Eos % (Auto) Baso % (Auto) Lymph # (Auto) [place] # (Auto) Eos # (Auto) Baso # (Auto) Abs Immat Gran (auto) Absolute Neuts (auto) Absolute Nucleated RBC Band Neutrophils % Nucleated RBC % Platelet Estimate Polychromasia Hypochromasia Anisocytosis Tear Drop Cells Ovalocytes Schistocytes ESR > 140 H PT INR APTT VBG pH VBG pCO2 VBG pO2 VBG HCO3 O2 Delivery Device O2 Liters/Min FiO2 Sodium 128 L Potassium 3.4 Chloride 86 L Carbon Dioxide 26 Anion Gap 16 H BUN 116 H* Creatinine 2.85 H Estim Creat Clear Calc 30 Estimated GFR 22 L Glucose 113 H Lactic Acid 0.7 Calcium 8.8 Magnesium 3.0 H Iron 41 L TIBC 406 % Saturation 10 L Ferritin 73.60 Total Bilirubin AST ALT Alkaline Phosphatase C-Reactive Protein Total Protein Albumin Lipase Vitamin B12 507.0 Folate 14.4 Procalcitonin 0.5 Urine Color Urine Appearance Urine pH Ur Specific [place] Urine Protein Urine Glucose (UA) Urine Ketones Ur Blood (Man) Urine Nitrate Urine Bilirubin Urine Urobilinogen Leukocyte Esterase Rfl Blood Type Antibody Screen 09/16/24 09/16/24 04:39 04:44 WBC 12.0 H RBC 3.70 L Hgb 9.2 L Hct 30.9 L MCV 83.5 MCH 24.9 L MCHC 29.8 L RDW 15.3 H Plt Count 501 H MPV 9.9 Immature Gran % (Auto) 0.8 H Neut % (Auto) 84.1 H Lymph % (Auto) 4.7 L [place] % (Auto) 6.7 Eos % (Auto) 3.1 Baso % (Auto) 0.6 Lymph # (Auto) 0.56 L [place] # (Auto) 0.8 H Eos # (Auto) 0.4 H Baso # (Auto) 0.1 Abs Immat Gran (auto) 0.10 H Absolute Neuts (auto) 10.1 H Absolute Nucleated RBC 0.000 Band Neutrophils % 0 Nucleated RBC % 0.0 Platelet Estimate Increased Polychromasia Hypochromasia 1+ Anisocytosis Tear Drop Cells Ovalocytes 1+ Schistocytes None seen ESR PT 18.3 H INR 1.5 APTT VBG pH 7.386 VBG pCO2 48.1 H VBG pO2 < 27.0 L VBG HCO3 28.2 O2 Delivery Device Other device O2 Liters/Min 4.0 FiO2 36 Sodium 131 L Potassium 3.6 Chloride 89 L Carbon Dioxide 27 Anion Gap 15 H BUN 110 H* Creatinine 2.67 H Estim Creat Clear Calc 32 Estimated GFR 23 L Glucose 99 Lactic Acid Calcium 8.8 Magnesium Iron TIBC % Saturation Ferritin Total Bilirubin AST ALT Alkaline Phosphatase C-Reactive Protein 6.5 H Total Protein Albumin Lipase Vitamin B12 Folate Procalcitonin Urine Color Urine Appearance Urine pH Ur Specific [place] Urine Protein Urine Glucose (UA) Urine Ketones Ur Blood (Man) Urine Nitrate Urine Bilirubin Urine Urobilinogen Leukocyte Esterase Rfl Blood Type Antibody Screen Quality VTE Prophylaxis VTE prophylaxis: mechanical ordered
[2024-09-16 11:05] LABS: Hematocrit 30.6 % (42.0-52.0); Hemoglobin 9.2 g/dL (14.0-18.0)
[2024-09-16 11:23] LABS: Anion Gap 14 mmol/L (4-12); Calcium 8.9 mg/dL (8.4-10.2); Carbon Dioxide 27 mmol/L (22-30); Chloride 89 mmol/L (98-107); Estimated CRCL calculation 31 ml/min; Estimated Glomerular Filt Rate 23; Glucose 115 mg/dL (65-110); Potassium 3.5 mmol/L (3.4-5.0); Sodium 130 mmol/L (137-145)
[2024-09-16 11:25] LABS: Blood Urea Nitrogen 110 mg/dL (9-20)
[2024-09-16] MEDS: minoxidiL 2.5 MG TABLET PO (12:58)
[2024-09-16] MEDS: TAMSULOSIN HCL 0.4 MG CAPSULE PO (12:58)
[2024-09-16] MEDS: DOCUSATE SODIUM 100 MG CAPSULE PO (12:58)
[2024-09-16] MEDS: FAMOTIDINE 20 MG TABLET PO ×2 (12:59→20:05)
[2024-09-16] MEDS: polyethylene glycoL 3350 17 GM POWD.PACK PO (12:59)
[2024-09-16] MEDS: SPIRONOLACTONE 25 MG TABLET PO (12:59)
--- NOTE | 2024-09-16 13:00 | P.CONGI_ITS ---
Assessment and Plan Assessment and plan (1) GI (gastrointestinal bleed): Code(s): K92.2 - Gastrointestinal hemorrhage, unspecified Status: Acute (2) Chronic anticoagulation: Code(s): Z79.01 - longterm (current) use of anticoagulants Status: Acute (3) Hypokalemia: Code(s): E87.6 - Hypokalemia Status: Acute (4) Hyponatremia: Code(s): E87.1 - Hypo-osmolality and hyponatremia Status: Chronic (5) Benign hypertension with chronic kidney disease: Code(s): I12.9 - Hypertensive chronic kidney disease with stage 1 through stage 4 chronic kidney disease, or unspecified chronic kidney disease Status: Chronic (6) Chronic kidney disease, stage IV (severe): Code(s): N18.4 - Chronic kidney disease, stage 4 (severe) Status: Chronic (7) History of chronic CHF: Code(s): Z86.79 - Personal history of other diseases of the circulatory system Status: Chronic Plan PLAN: 1. Lower quadrant abdominal pain/rectal bleeding/fecal impaction/Anemia: CT scan shows fecal impaction with thickening of rectal wall suggestive of proctitis with surrounding fat stranding. Has history of chronic anemia typically running in the 10-11's. Labs on admission with hemoglobin 9.3 hematocrit 30.5, WBC 15.1, platelets 565, ESR 140, CRP 6.5, INR 1.8, sodium 128, potassium 3.0, BUN 119, Creatinine 2.67, ferritin 73, and iron saturation 10, lipase 239. C-diff ordered per ER, no results available. On Eliquis 5 mg BID for atrial fibrillation, could be contributing to his bleeding. Currently on hold for EGD colonoscopy in the a.m. DDX: PUD VS GI bleed VS Proctitis VS Inflammatory bowel disease VS Infectious colitis VS Ischemic colitis - Fleets Enema now to relieve fecal impaction, repeat enema times one if no relief in fecal impaction with first enema - Start bowel prep tonight for EGD/ Colonoscopy planned for tomorrow to evaluate for cause of bleeding and assess for proctitis - Continue to monitor hemoglobin levels given current anemia and active bleeding - Iron studies already collected - On PPI therapy. This report may have been done utilizing a voice recognition system. Attempts have been made to correct errors. However, there may be uncorrected grammatical, spelling, and recognition errors present. GI Consult Note Consult date/time: 09/16/24 13:00 Reason for consult: GI bleed HPI: Irwin Cyr Jr. is a 74 year old male with a past medical surgical history of chronic kidney disease, hypertension, CHF, hypothyroidism, GERD, AFib (on Eliquis), peripheral vascular disease with recent right BKA. He presented to [facility] yesterday for complaints of lower abdominal pain with associated black and bloody stools. Irwin reports having left lower quadrant abdominal pain and bloody stools for a couple of days. He describes the stool as looking like straight blood that was liquidy and loose, not dark and tarry. He reports waves of abdominal pain in the rectal area that sometimes precede bowel movements. He has been experiencing nausea since these symptoms started. He has a history of GERD, taking daily PPI. Irwin reports normal bowel habits at home (once daily), but notes he typically becomes constipated when in a hospital or fdc which he has been residing at [facility] for several months now 2/2 PVD with chronic wounds, recently had Right BKA. He had a small bowel movement last night that contained blood and per nurse report a small one this am. He reports that since his gallbladder removal, he can sometimes go 2-3 days without a bowel movement. He denies any history of inflammatory bowel disease or proctitis. He denies any history of radiation therapy. CT scan of abd and pelvis on admission revealed fecal material impacted in the rectum with thickening of the wall of the colon suggested of proctitis. Fat stranding also seen around rectum. Fecal materials loaded in the colon. Labs on admission with hemoglobin 9.3 hematocrit 30.5, WCB 15.1, platelets 565, ESR 140, CRP 6.5, INR 1.8, sodium 128, potassium 3.0, BUN 119, Creatinine 2.67, ferritin 73, and iron saturation 10, lipase 239. c-diff ordered per ER, no results available. last colonoscopy in 2011 revealed diverticulosis and hemorrhoids. No prior history of EGD. Review of Systems 2 Constitutional: Constitutional: Denies anorexia and Reports fatigue Eyes: Eyes: Denies change in vision ENT: Denies hoarseness Cardiovascular: Cardiovascular: Denies chest pain Respiratory: Respiratory: Denies cough Gastrointestinal: Gastrointestinal: Reports as per HPI Genitourinary: Genitourinary: Denies urinary frequency Musculoskeletal: Musculoskeletal: Denies myalgias Integumentary/Breasts: Skin/Breast: Denies rash and Denies jaundice Neurologic: Denies abnormal gait Psychiatric: Psychiatric: Denies change in appetite Endocrine: Endocrine: Denies fatigue Hematologic/Lymphatic: Hematologic/Lymphatic: Denies easy bruising Allergic/Immunologic: Allergic/Immunologic: Denies GI upset with certain foods PMFSH Past Medical History Medical History Hyponatremia Self-care deficit Peripheral vascular disease Morbid obesity with body mass index (BMI) of 40.0 or higher Neuropathic pain Gout Sepsis Chronic acquired lymphedema Chronic anemia Obstructive sleep apnea Atrial fibrillation Lymphedema of both lower extremities Environmental allergies Ocular rosacea Rosacea Chronic low back pain Chronic venous insufficiency GERD without esophagitis Chronic congestive heart failure Echocardiogram in May 2021 was technically difficult and showed normal LV systolic function with an EF of 60 to 65%, severely enlarged RV chamber with moderate to severely reduced RV systolic function, severe biatrial enlargement, and moderate pulmonary hypertension. Dyslipidemia Essential (primary) hypertension Peripheral polyneuropathy Hypothyroidism Surgical History Surgical History History of carpal tunnel release History of thoracic surgery Pericardial effusion s/p pericardial window thought secondary to minoxidil, in 2010 at [facility]. H/O eye surgery (~2005) [id number] [facility] History of foot surgery Left Foot History of cholecystectomy (2008) History of rotator cuff surgery Bilateral. History of discectomy (2012) Family History Family History Father Cardiovascular disease Grandparent Cancer Mother COPD (chronic obstructive pulmonary disease) Social History Social History Social History: Surrogate medical decision maker: Shyla Hurst, daughter. Code status: Full code. Caffeine-decalf coffee, diet soda Smoking packs per day: 2 Smoking cigarettes per day: 40.0 Years smoked: 20 Smoking pack-years: 40.00 Smoking status: Former smoker Second hand tobacco smoke exposure: No Additional smoking assessment comments: 1979 Alcohol intake: never Alcohol use details: One beer daily. Substance use: never Substance use type: does not use Do You Feel Safe in your Home?: Yes Lack of Transportation: No Lack of Food: Never True Current Housing: I Have Housing Concerned About Future Housing: No Difficulty Paying Gas/Electric Bills: No Difficulty Paying for Meds: No Currently Unemployed: No Education: Associate Degree Difficulty w/ Childcare or Family Care: No Living arrangements: alone Additional living arrangements comments: Lives in own home in [place]. Uses a motorized scooter and transfers with slide board. Occupation/Education: retired Additional occupation/education comments: Retired. Previously worked for the [employer] and [employer] for [email or web address]. Spiritual care concerns: No Meds Home Medications and Allergies Home Medications ?Medication ?Instructions ?Recorded ?Confirmed ?Type loratadine 10 mg tablet (Claritin) 10 mg PO DAILY PRN allergy symptoms 07/12/20 09/15/24 History polyethylene glycol 3350 17 17 g PO DAILY PRN Constipation 06/02/21 09/15/24 History gram/dose oral powder (Miralax) apixaban 5 mg tablet (Eliquis) 5 mg PO Q12HR #180 tabs 01/19/22 09/15/24 Rx metoprolol tartrate 50 mg tablet 50 mg PO Q12HR #180 tabs 01/19/22 09/15/24 Rx acetazolamide 250 mg tablet 250 mg PO DAILY 11/19/22 09/15/24 History fluticasone propionate 50 1 spray intranasal DAILY Congestion 11/19/22 09/15/24 History mcg/actuation nasal spray,suspension (Flonase Allergy Relief) lanolin alcohols-mineral 1 applic topical BID #113 grams 03/25/23 09/15/24 Rx oil-w.petrolatum-ceresin topical cream (Minerin Creme topical) spironolactone 25 mg tablet 25 mg PO DAILY #30 tabs 04/06/23 09/15/24 Rx calcitriol 0.25 mcg capsule 0.25 mcg PO 3XW #36 caps 10/30/23 09/15/24 Rx docusate sodium 100 mg capsule 100 mg PO Q12H PRN constipation 05/13/24 09/15/24 History gabapentin 300 mg capsule 300 mg PO TID #270 caps 05/14/24 09/15/24 Rx bumetanide 1 mg tablet See Rx Instructions .Route 06/29/24 09/15/24 Rx .COMPLEX #270 tabs allopurinol 100 mg tablet 100 mg PO DAILY #10 tabs 08/04/24 09/15/24 Rx famotidine 20 mg tablet 20 mg PO BID #180 tabs 08/04/24 09/15/24 Rx levothyroxine 200 mcg tablet 200 mcg PO DAILY #90 tabs 08/04/24 09/15/24 Rx metolazone 5 mg tablet 5 mg PO DAILY 08/04/24 09/15/24 History minoxidil 2.5 mg tablet 2.5 mg PO DAILY 08/04/24 09/15/24 History potassium chloride 10 mEq 10 meq PO DAILY 08/04/24 09/15/24 History capsule,extended release tamsulosin 0.4 mg capsule 0.4 mg PO QAM #90 caps 08/04/24 09/15/24 Rx acetaminophen 500 mg capsule 500 mg PO Q6H PRN fever or pain 09/15/24 09/15/24 History bisacodyl 10 mg rectal suppository 10 mg RECTAL DAILY PRN constipation 09/15/24 09/15/24 History (Dulcolax (bisacodyl)) scopolamine base 1 mg over 3 days 1 patch transdermal Q72H 09/15/24 09/15/24 History transdermal patch Allergies Allergy/AdvReac Type Severity Reaction Status Date / Time Sulfa (Sulfonamide Allergy Mild Rash Verified 09/15/24 14:05 Antibiotics) Penicillins Allergy Unknown SWELLING Verified 09/15/24 14:05 codeine AdvReac Mild N/V Verified 09/15/24 14:05 hydrocodone AdvReac Mild N/V Verified 09/15/24 14:05 oxycodone (From OxyContin) AdvReac Mild Nausea Verified 09/15/24 14:05 tramadol AdvReac Mild Nausea Verified 09/15/24 14:05 Vital Signs Vital Signs - 24 hr 09/15/24 13:58 09/15/24 15:01 09/15/24 15:09 Temperature 97.6 F Pulse Rate 72 69 77 Respiratory Rate 14 16 16 Blood Pressure 103/60 99/52 L 94/70 L Pulse Oximetry 100 98 98 Oxygen Delivery Room Air Oxygen Flow Rate 09/15/24 15:31 09/15/24 16:01 09/15/24 16:09 Temperature Pulse Rate 71 75 72 Respiratory Rate 18 14 20 Blood Pressure 106/57 L 104/62 100/64 Pulse Oximetry 97 95 100 Oxygen Delivery Oxygen Flow Rate 09/15/24 17:01 09/15/24 17:38 09/15/24 17:50 Temperature 98.2 F Pulse Rate 73 71 Respiratory Rate 12 16 Blood Pressure 102/60 101/54 L Pulse Oximetry 95 100 Oxygen Delivery Room Air Oxygen Flow Rate 09/15/24 20:00 09/15/24 21:05 09/15/24 21:11 Temperature 97.7 F Pulse Rate 76 Respiratory Rate 20 Blood Pressure 107/58 L Pulse Oximetry 98 100 98 Oxygen Delivery CPAP CPAP Oxygen Flow Rate 4 4 09/15/24 21:12 09/16/24 04:49 09/16/24 06:25 Temperature 97.2 F L Pulse Rate 76 76 78 Respiratory Rate 20 Blood Pressure 105/57 L Pulse Oximetry 98 100 Oxygen Delivery CPAP Oxygen Flow Rate 09/16/24 09:50 Temperature Pulse Rate Respiratory Rate Blood Pressure Pulse Oximetry Oxygen Delivery Room Air Oxygen Flow Rate Exam 2 Const: General: cooperative and no acute distress O rientation/consciousness: oriented to person, oriented to place and oriented to time HENMT: Head: normal to inspection Eyes: General: appearance normal, both eyes and all related structures Neck: Neck: normal visual inspection Chest: Chest palpation & inspection: normal inspection of the chest Resp: Effort & Inspection: normal respiratory effort Auscultation: clear to auscultation bilaterally Cardio: Rate: regular rate Rhythm: regular rhythm GI: Inspection: normal to inspection GI Palp: Yes Soft to palpation and No Guarding due to palpation present (GI) Auscultation: normal bowel sounds R ectal Exam: deferred Skin: General skin exam: normal color Neuro: General: oriented to person, oriented to place, oriented to time and patient oriented x3 Extrem: General: amputation noted Below the knee: right and edema left Psych: Appearance: grossly normal Attitude: cooperative Results Labs 09/16/24 10:53 09/16/24 10:53 Labs: Short CBC 09/15/24 09/15/24 09/15/24 Range/Units 14:18 18:49 23:12 WBC 15.1 H (4.5-10.0) K/mm3 Hgb 9.3 L 9.0 L 9.2 L (14.0-18.0) g/dL Hct 30.5 L 29.5 L 30.0 L (42.0-52.0) % Plt Count 565 H (150-375) k/mm3 09/16/24 09/16/24 Range/Units 04:39 10:53 WBC 12.0 H (4.5-10.0) K/mm3 Hgb 9.2 L 9.2 L (14.0-18.0) g/dL Hct 30.9 L 30.6 L (42.0-52.0) % Plt Count 501 H (150-375) k/mm3 BMP 09/15/24 09/15/24 09/16/24 14:18 23:12 04:39 Sodium 128 L 128 L 131 L Potassium 3.0 L 3.4 3.6 Chloride 83 L 86 L 89 L Carbon Dioxide 29 26 27 BUN 119 H* D 116 H* 110 H* Creatinine 2.75 H 2.85 H 2.67 H Glucose 120 H 113 H 99 Calcium 9.1 8.8 8.8 09/16/24 10:53 Sodium 130 L Potassium 3.5 Chloride 89 L Carbon Dioxide 27 BUN 110 H* Creatinine 2.75 H Glucose 115 H Calcium 8.9 Liver Function 09/15/24 Range/Units 14:18 Total Bilirubin 0.4 (0.2-1.3) mg/dL AST 20 (17-59) U/L ALT 17 (6-50) U/L Alkaline Phosphatase 72 (38-126) U/L Albumin 4.1 (3.5-5.1) g/dL Urine 09/15/24 Range/Units 17:43 Urine Color Yellow (Yellow) Urine Appearance Clear (Clear) Urine pH 6.5 (5.0-9.0) Ur Specific [place] 1.010 (1.001-1.035) Urine Protein Negative (Negative) mg/dL Urine Glucose (UA) Negative (Negative) mg/dL
[2024-09-16 14:00] VITALS: BP 104/55; PULSE 65; RESP 19; TEMP 36.4; O2SAT 100
[2024-09-16] MEDS: SODIUM CHLORIDE 0.9% IV 1,000 ML 100 ML IV CONT (15:54)
--- NOTE | 2024-09-16 16:27 | P.CONNP_ITS ---
Assessment and Plan Assessment and plan (1) Acute kidney injury: Code(s): N17.9 - Acute kidney failure, unspecified Status: Acute Assessment and Plan: * as noted by labs on admission (creatinine of 2.75mg/dl) * suspect multifactorial: * prerenal factors * possible overdiuresis * diuretic therapy (in general) * anemia/GI bleed * relative hypotension * other(?) * check urine studies, CPK and renal ultrasound * hold diuretics * trial of gentle IVFs * follow trend of repeat labs and UOP (2) Stage 3b chronic kidney disease: Code(s): N18.32 - Chronic kidney disease, stage 3b Status: Chronic Assessment and Plan: * baseline creatinine runs ~ 1.7 - 2.3mg/dl in the last year or so * however, has been as low as 1.6mg/dl and as high as 2.7mg/dl in association with acute hospitalizations * this causes him to fluctuate between CKD stage 3b and stage 4 * secondary to hypertensive nephrosclerosis, vascular disease, as well as the necessity of chronic diuretic therapy to maintain his volume status and age- related change * has required acute [employer]/dialysis x 2 in the past for JENA on CKD and volume/fluid overload unresponsive to diuretic therapy (3) GI (gastrointestinal bleed): Code(s): K92.2 - Gastrointestinal hemorrhage, unspecified Status: Acute Assessment and Plan: * as noted by history of bloody stools with LLQ abdominal pain + rectal pain * guaiac positive in ER * CT imaging with fecal stasis and inflammation consistent with proctitis * GI recommendations noted - plan for EGD/colonoscopy * follow trend of H/H (4) Azotemia: Code(s): R79.89 - Other specified abnormal findings of blood chemistry Status: Acute Assessment and Plan: * presumably secondary to GI bleed * however, aggressive diuretic therapy likely playing a role * follow trend of BUN (5) CHF (congestive heart failure): Qualifiers: Heart failure chronicity: chronic Heart failure type: diastolic Q ualified Code(s): I50.32 - Chronic diastolic (congestive) heart failure Code(s): I50.9 - Heart failure, unspecified Status: Chronic Assessment and Plan: * chronic issue (diastolic dysfunction) * appears compensated at this time * diuretics on hold due to soft BP and #1 * follow volume status closely (6) Atrial fibrillation: Qualifiers: Atrial fibrillation type: longstanding persistent Qualified Code(s): I 48.11 - Longstanding persistent atrial fibrillation Code(s): I48.91 - Unspecified atrial fibrillation Status: Chronic Assessment and Plan: * rate control strategy * anticoagulation on hold (due to #3) (7) Essential (primary) hypertension: Code(s): I10 - Essential (primary) hypertension Status: Chronic Assessment and Plan: * reasonable control * BP medications with parameters * follow trend of hemodynamics (8) AMELIA (obstructive sleep apnea): Code(s): G47.33 - Obstructive sleep apnea (adult) (pediatric) Status: Chronic Assessment and Plan: * continue CPAP at night and with rest I will continue to follow the patient with you while he remains hospitalized and make further recommendations as deemed necessary. Thank you for allowing me to participate in the care of this patient. L History of Present Illness Reason for Consult Consult date: 09/16/24 Reason for consult: acute renal failure (on chronic kidney disease) and hyponatremia Chief Complaint Chief complaint: GI Bleed/Abdominal Pain History of Present Illness Narrative: The patient is a 74-year-old male with extensive past medical history as outlined below who presented to [facility] from his rehab facility due to abdominal pain and associated bloody stools. The patient states that he has been having abdominal pain localized to the lower quadrants for last 2-3 days if not longer. This is been further complicated by fact that he has noted bloody stools for last couple of days as well. He describes the stool as looking like straight blood which was liquidy and loose. He denies black tarry stools. He also states that he has rectal pain in association with the abdominal plain that sometimes proceeds a bowel movement. He has also had further issues with nausea since the symptoms started as well. He also admits to increasing issues and problems with constipation since he has been in the nursing facility. He was admitted to the nursing facility due to chronic lower extremity wounds secondary to his vascular disease which eventually culminated in a recent right below-knee amputation here at [facility] about a month ago. Given these constellation of symptoms as mentioned, he presented to the emergency room for further assessment. Workup and evaluation emergency room demonstrated the patient be hemodynamically stable and in no acute distress aside from the abdominal pain. Routine testing demonstrated an elevated white blood cell count of 15.1 hemoglobin 9.3, hematocrit 30.5 platelet count of 565, sed rate 140, CRP 6.5, INR 1.8, sodium 128 potassium 3.0 BUN of 119, creatinine 2.67, ferritin 73, iron saturation 10%, and a lipase 239. Subsequent CT scan of the abdomen pelvis demonstrated fecal material impact in the rectum with thickening of the blair of the colon suggestive of proctitis. Fat stranding is also seen around the rectum. He was noted be Hemoccult positive as well. Given these findings and his somewhat complex medical history, he was admitted to the hospital for further evaluation therapy. Since his admission, he has been seen in consultation by Gastroenterology with the tentative plan for bowel prep today and subsequent EGD and colonoscopy tomorrow for further assessment of his symptoms. Renal consultation was requested due to the patient's known chronic kidney disease. The patient is somewhat well known to me as I take care of his outpatient needs with regard to his chronic kidney disease. His chronic kidney disease is secondary to hypertensive nephrosclerosis as well as the necessity of chronic diuretic therapy to maintain his volume status. In the past, he has required renal replacement therapy/dialysis for acute kidney injury on top of his baseline chronic kidney disease as well as overt volume overload on 2 separate occasions to improve his clinical situation but each time that this occurred, his renal function eventually stabilized and was able to come off dialysis. Furthermore, he has required hospitalizations for severe/significant volume overload that did respond to IV diuretic therapy as well. When I first met the patient several years ago, the patient's baseline creatinine was usually running around 1.4 - 1.7 mg/dL but more recently, in the last couple of years, his creatinine has been running in the 1.7 - 2.3 mg/dL range. As noted by his admission labs, his creatinine was slightly higher than baseline but in the context of a suspected GI bleed and possible mild volume depletion, this is not unexpected.. Currently, at the time my visit, he appears to be in no acute distress. Review of Systems 2 Review of Systems: As per HPI. [facility] Past Medical History Medical History (Updated 10/07/24 @ 23:16 by Chester Longo MD) Constipation Stercoral ulcer of rectum Fecal impaction Proctitis Hyponatremia Self-care deficit Peripheral vascular disease Morbid obesity with body mass index (BMI) of 40.0 or higher Neuropathic pain Gout Sepsis Chronic acquired lymphedema Chronic anemia Obstructive sleep apnea Atrial fibrillation Lymphedema of both lower extremities Environmental allergies Ocular rosacea Rosacea Chronic low back pain Chronic venous insufficiency GERD without esophagitis Chronic congestive heart failure Echocardiogram in May 2021 was technically difficult and showed normal LV systolic function with an EF of 60 to 65%, severely enlarged RV chamber with moderate to severely reduced RV systolic function, severe biatrial enlargement, and moderate pulmonary hypertension. Dyslipidemia Essential (primary) hypertension Peripheral polyneuropathy Hypothyroidism Surgical History Surgical History S/P BKA (below knee amputation) 08/25/24 Right below-knee amputation Dr. Malone History of carpal tunnel release History of thoracic surgery Pericardial effusion s/p pericardial window thought secondary to minoxidil, in 2010 at [facility]. H/O eye surgery (~2005) [id number] [facility] History of foot surgery Left Foot History of cholecystectomy (2008) History of rotator cuff surgery Bilateral. History of discectomy (2012) Family History Family History Father Cardiovascular disease Grandparent Cancer Mother COPD (chronic obstructive pulmonary disease) Social History Social History Social History: Surrogate medical decision maker: Shyla Hurst, daughter. Code status: Full code. Caffeine-decalf coffee, diet soda Smoking packs per day: 2 Smoking cigarettes per day: 40.0 Years smoked: 20 Smoking pack-years: 40.00 Smoking status: Former smoker Second hand tobacco smoke exposure: No Additional smoking assessment comments: 1978 Alcohol intake: never Alcohol use details: One beer daily. Substance use: never Substance use type: does not use Do You Feel Safe in your Home?: Yes Lack of Transportation: No Lack of Food: Never True Current Housing: I Have Housing Concerned About Future Housing: No Difficulty Paying Gas/Electric Bills: No Difficulty Paying for Meds: No Currently Unemployed: No Education: Associate Degree Difficulty w/ Childcare or Family Care: No Living arrangements: alone Additional living arrangements comments: Lives in own home in [place]. Uses a motorized scooter and transfers with slide board. Occupation/Education: retired Additional occupation/education comments: Retired. 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 Spiritual care concerns: No Meds Home Medications and Allergies Home Medications ?Medication ?Instructions ?Recorded ?Confirmed ?Type loratadine 10 mg tablet (Claritin) 10 mg PO DAILY PRN allergy symptoms 07/12/20 10/01/24 History polyethylene glycol 3350 17 17 g PO DAILY PRN Constipation 06/02/21 10/01/24 History gram/dose oral powder (Miralax) apixaban 5 mg tablet (Eliquis) 5 mg PO Q12HR #180 tabs 01/19/22 10/01/24 Rx metoprolol tartrate 50 mg tablet 50 mg PO Q12HR #180 tabs 01/19/22 10/01/24 Rx acetazolamide 250 mg tablet 250 mg PO DAILY 11/19/22 10/01/24 History fluticasone propionate 50 1 spray intranasal DAILY Congestion 11/19/22 10/01/24 History mcg/actuation nasal spray,suspension (Flonase Allergy Relief) spironolactone 25 mg tablet 25 mg PO DAILY #30 tabs 04/06/23 10/01/24 Rx calcitriol 0.25 mcg capsule 0.25 mcg PO 3XW #36 caps 10/30/23 10/01/24 Rx docusate sodium 100 mg capsule 100 mg PO Q12H PRN constipation 05/13/24 10/01/24 History bumetanide 1 mg tablet See Rx Instructions .Route 06/29/24 10/01/24 Rx .COMPLEX #270 tabs allopurinol 100 mg tablet 100 mg PO DAILY #10 tabs 08/04/24 10/01/24 Rx famotidine 20 mg tablet 20 mg PO BID #180 tabs 08/04/24 10/01/24 Rx minoxidil 2.5 mg tablet 2.5 mg PO DAILY 08/04/24 10/01/24 History potassium chloride 10 mEq 10 meq PO DAILY 08/04/24 10/01/24 History capsule,extended release tamsulosin 0.4 mg capsule 0.4 mg PO QAM #90 caps 08/04/24 10/01/24 Rx acetaminophen 500 mg capsule 500 mg PO Q6H PRN fever or pain 09/15/24 10/01/24 History bisacodyl 10 mg rectal suppository 10 mg RECTAL DAILY PRN constipation 09/15/24 10/01/24 History (Dulcolax (bisacodyl)) scopolamine base 1 mg over 3 days 1 patch transdermal Q72H 09/15/24 10/01/24 History transdermal patch ferrous sulfate 325 mg (65 mg 325 mg PO DAILY 30 days #30 tabs 09/20/24 10/01/24 Rx iron) tablet,delayed release metronidazole 500 mg tablet 500 mg PO Q8H 5 days #15 tabs 09/20/24 10/01/24 Rx levothyroxine 200 mcg tablet 200 mcg PO .AM 10/01/24 10/01/24 History ondansetron HCl 4 mg tablet 4 mg PO Q8H PRN 10/01/24 10/01/24 History oxycodone-acetaminophen 7.5 mg-325 1 tablet PO Q6H PRN 10/01/24 10/01/24 History mg tablet (Percocet) potassium chloride 10 mEq 10 meq PO DAILY 10/01/24 10/01/24 History capsule,extended release scopolamine base 1 mg over 3 days 1 patch transdermal Q3D PRN 10/01/24 10/01/24 History transdermal patch gabapentin 300 mg capsule 300 mg PO TID #270 caps 10/06/24 Rx Allergies Allergy/AdvReac Type Severity Reaction Status Date / Time Sulfa (Sulfonamide Allergy Mild Rash Verified 10/01/24 10:39 Antibiotics) Penicillins Allergy Unknown SWELLING Verified 10/01/24 10:39 codeine AdvReac Mild N/V Verified 10/01/24 10:39 hydrocodone AdvReac Mild N/V Verified 10/01/24 10:39 oxycodone (From OxyContin) AdvReac Mild Nausea Verified 10/01/24 10:39 tramadol AdvReac Mild Nausea Verified 10/01/24 10:39 Vital Signs Vital Signs Temp Pulse Resp BP Pulse Ox O2 Del Method O2 Flow Rate 09/16/24 14:00 97.6 F 65 19 104/55 L 100 09/16/24 09:50 Room Air 09/16/24 06:25 78 09/16/24 04:49 97.2 F L 76 20 105/57 L 100 09/15/24 21:12 76 98 CPAP 09/15/24 21:11 98 CPAP 4 09/15/24 21:05 97.7 F 76 20 107/58 L 100 09/15/24 20:00 98 CPAP 4 Exam 2 Narrative: GENERAL APPEARANCE: well developed well nourished male in no acute distress HEENT: normocephalic, atraumatic, normal conjunctiva and sclera, nares patient NECK: no lymphadenopathy, thyromegaly, or JVD MOUTH: normal lips, teeth, and gums CARDIOVASCULAR: RRR, normal S1 and S2, no rub detected RESPIRATORY: clear to auscultation ABDOMEN: soft, nontender, nondistended, positive bowel sounds present EXTREMITIES: no evidence of cyanosis, clubbing, or edema; s/p right BKA NEUROLOGICAL: alert and oriented x 3; CN II - XII intact bilaterally; no focal deficits noted Results Lab Results 09/20/24 04:44 09/20/24 04:44 Lab results: Most recent lab results Calcium 8.9 mg/dL (8.4-10.2) 09/16/24 10:53 Magnesium 3.0 mg/dL (1.6-2.3) H 09/15/24 23:12
[2024-09-16] MEDS: BISACODYL 5 MG TABLET EC 20 MG PO (17:42)
[2024-09-16] MEDS: polyethylene glycoL 3350 238 GM BOTTLE PO (17:42)
[2024-09-16] MEDS: HYDROcodone/acetaminophen (*CRX) 5-325 MG TABLET 1 TAB PO (17:42)
[2024-09-16 20:11] VITALS: PULSE 69
[2024-09-16 20:14] VITALS: BP 106/54; PULSE 74; RESP 17; TEMP 36.8; O2SAT 100
[2024-09-16 21:15] VITALS: PULSE 83; O2SAT 99
[2024-09-16] MEDS: ACETAMINOPHEN 500 MG TABLET 1000 MG PO (21:27)
[2024-09-16 22:47] LABS: Sodium Urine Random 41 meq/L; Total Protein Urine Random 8 mg/dL; Urea Random Urine 647 MG/DL
[2024-09-16 23:04] LABS: Creatinine Urine 56.6 mg/dL; Total Protein Urine Random 8 mg/dL; Ur Ttl Prot Creatinine Ratio 0.14 mg/mg (0-0.20)
[2024-09-17] VITALS (8 sets, daily range): BP systolic 109–118; BP diastolic 53–60; PULSE 62–85; RESP 17–18; TEMP 35.9–36.6; O2SAT 94–100
[2024-09-17 00:23] LABS: Eosinophil Urine None Seen % (None Seen); Urine Eos QC 2nd Tech Confirmed
[2024-09-17] MEDS: MAGNESIUM CITRATE 300 ML BTL PO ×2 (02:06→21:32)
[2024-09-17] MEDS: SODIUM CHLORIDE 0.9% IV 1,000 ML 100 ML IV CONT ×2 (02:07→15:47)
[2024-09-17 05:28] LABS: Basophils Absolute Auto 0.1 K/mm3 (0.0-0.1); Basophils Percent Auto 0.5 % (0.2-1.2); Eosinophils Absolute Auto 0.5 K/mm3 (0-0.3); Eosinophils Percent Auto 4.4 % (0-4.4); Hematocrit 28.5 % (42.0-52.0); Hemoglobin 8.6 g/dL (14.0-18.0); Immature Granulocyte Absolute 0.09 K/mm3 (0.00-0.031); Immature Granulocyte Percent A 0.8 % (0-0.5); Lymphocytes Absolute Auto 0.55 K/mm3 (0.9-3.2); Lymphocytes Percent Auto 4.6 % (18.3-44.2); Mean Corpuscular HGB Conc 30.2 g/dl (32-36); Mean Corpuscular Hemoglobin 25.1 pg (26-34); Mean Corpuscular Volume 83.1 fl (80-100); Monocytes Absolute Auto 0.8 K/mm3 (0.1-0.6); Monocytes Percent Auto 6.4 % (2.6-8.5); Neutrophils Percent Auto 83.3 % (45.5-73.1); Platelet Count Result 455 k/mm3 (150-375); Red Blood Count 3.43 M/mm3 (4.6-6.20); Red Cell Distribution Width 15.3 % (11.5-14.5)
[2024-09-17 05:46] LABS: Albumin Level 3.8 g/dL (3.5-5.1); Anion Gap 15 mmol/L (4-12); Blood Urea Nitrogen 100 mg/dL (9-20); Calcium 8.5 mg/dL (8.4-10.2); Carbon Dioxide 23 mmol/L (22-30); Chloride 91 mmol/L (98-107); Creatine Kinase < 20 U/L (55-170); Estimated CRCL calculation 34 ml/min; Estimated Glomerular Filt Rate 25; Glucose 109 mg/dL (65-110); Phosphorus 4.8 mg/dL (2.5-4.5); Potassium 3.2 mmol/L (3.4-5.0); Sodium 129 mmol/L (137-145)
[2024-09-17 05:53] LABS: Hypochromasia 1+; Ovalocytes 1+; Platelet Estimate Increased (Adequate); Schistocytes None Seen; Tear Drop Cells 1+
[2024-09-17] MEDS: FAMOTIDINE 20 MG TABLET PO ×2 (08:32→21:29)
[2024-09-17] MEDS: LEVOTHYROXINE SODIUM 100 MCG TABLET 200 MCG PO (08:32)
[2024-09-17] MEDS: HYDROcodone/acetaminophen (*CRX) 5-325 MG TABLET 1 TAB PO ×2 (08:32→15:46)
[2024-09-17] MEDS: DOCUSATE SODIUM 100 MG CAPSULE PO (08:33)
[2024-09-17] MEDS: METOPROLOL TARTRATE 50 MG TAB PO ×2 (08:33→21:30)
[2024-09-17] MEDS: SPIRONOLACTONE 25 MG TABLET PO (08:33)
[2024-09-17] MEDS: FLUTICASONE PROPIONATE 0.05% NA SPR 16 GM BTL (*BKC) 1 SPRAY NASAL (08:33)
[2024-09-17] MEDS: minoxidiL 2.5 MG TABLET PO (08:33)
[2024-09-17] MEDS: TAMSULOSIN HCL 0.4 MG CAPSULE PO (08:33)
[2024-09-17] MEDS: PANTOPRAZOLE SODIUM IV 40 MG VIAL IV PUSH (08:33)
--- NOTE | 2024-09-17 13:02 | P.PNNP_ITS ---
Progress Note: A&P Assessment and Plan (1) Acute kidney injury: Code(s): N17.9 - Acute kidney failure, unspecified Status: Acute Assessment and Plan: * slow improvement * as noted by labs on admission (creatinine of 2.75mg/dl) * suspect multifactorial: * prerenal factors * possible overdiuresis * diuretic therapy (in general) * anemia/GI bleed * relative hypotension * other(?) * evaluation to date noted: * renal ultrasound limited by body habitus * urine electrolyte prerenal * urine eosinophils negative * CPK low * mild proteinuria * holding diuretics * on gentle IVFs * follow trend of repeat labs and UOP (2) Stage 3b chronic kidney disease: Code(s): N18.32 - Chronic kidney disease, stage 3b Status: Chronic Assessment and Plan: * baseline creatinine runs ~ 1.7 - 2.3mg/dl in the last year or so * however, has been as low as 1.6mg/dl and as high as 2.7mg/dl in association with acute hospitalizations * this causes him to fluctuate between CKD stage 3b and stage 4 * secondary to hypertensive nephrosclerosis, vascular disease, as well as the necessity of chronic diuretic therapy to maintain his volume status and age- related change * has required acute [employer]/dialysis x 2 in the past for JENA on CKD and volume/fluid overload unresponsive to diuretic therapy (3) GI (gastrointestinal bleed): Code(s): K92.2 - Gastrointestinal hemorrhage, unspecified Status: Acute Assessment and Plan: * as noted by history of bloody stools with LLQ abdominal pain + rectal pain * guaiac positive in ER * CT imaging with fecal stasis and inflammation consistent with proctitis * GI recommendations noted - plan for EGD/colonoscopy today * follow trend of H/H (4) Azotemia: Code(s): R79.89 - Other specified abnormal findings of blood chemistry Status: Acute Assessment and Plan: * improving * presumably secondary to GI bleed * however, aggressive diuretic therapy likely playing a role * follow trend of BUN (5) CHF (congestive heart failure): Qualifiers: Heart failure chronicity: chronic Heart failure type: diastolic Q ualified Code(s): I50.32 - Chronic diastolic (congestive) heart failure Code(s): I50.9 - Heart failure, unspecified Status: Chronic Assessment and Plan: * chronic issue (diastolic dysfunction) * appears compensated at this time * diuretics on hold due to soft BP and #1 * follow volume status closely (6) Atrial fibrillation: Qualifiers: Atrial fibrillation type: longstanding persistent Qualified Code(s): I 48.11 - Longstanding persistent atrial fibrillation Code(s): I48.91 - Unspecified atrial fibrillation Status: Chronic Assessment and Plan: * rate control strategy * anticoagulation on hold (due to #3) (7) Essential (primary) hypertension: Code(s): I10 - Essential (primary) hypertension Status: Chronic Assessment and Plan: * reasonable control * BP medications with parameters * follow trend of hemodynamics (8) AMELIA (obstructive sleep apnea): Code(s): G47.33 - Obstructive sleep apnea (adult) (pediatric) Status: Chronic Assessment and Plan: * continue CPAP at night and with rest Will continue to follow. L Subjective Date/time seen: 09/17/24 13:02 Interval history: Follow-up for acute kidney injury/acute renal failure on chronic kidney disease. Significant difficulties with bowel prep including rectal pain in anticipation of EGD/colonoscopy today; renal function/creatinine a bit better by recent testing; reasonable urine output noted; sodium a bit lower today as well; no other issues/events overnight or earlier this morning. Exam 2 Narrative: General: Large WD/WN male in NAD Heart: normal S1 and S2; no rub Lungs: clear but decreased at bases Abdomen: soft, nontender, nondistended, positive bowel sounds Extremities: no cyanosis or clubbing; s/p right BKA Skin: chronic changes noted in LLEs Objective Data Vital Signs Vital Signs: Vital Signs Temp Pulse Resp BP Pulse Ox O2 Del Method 09/17/24 13:00 97.9 F 62 18 109/60 100 09/17/24 08:33 78 09/17/24 08:30 Room Air 09/17/24 06:05 78 98 CPAP 09/17/24 05:41 96.7 F L 71 17 115/53 L 100 09/17/24 01:29 80 98 CPAP 09/16/24 21:15 83 99 CPAP 09/16/24 20:14 98.3 F 74 17 106/54 L 100 09/16/24 20:11 69 09/16/24 20:00 CPAP Intake/Output Intake/Output: Intake & Output 0609/15/24 09/16/24 09/17/24 23:59 23:59 23:59 23:59 Intake Total 1000 1508 3170 Output Total 1100 850 Balance 9070 486 5353 Meds/Results Medications: Active Medications Generic Name Dose Route Start Last Admin Trade Name Freq PRN Reason Stop Dose Admin Acetaminophen 1,000 mg 09/15/24 18:59 09/16/24 21:27 Acetaminophen 500 Mg Tablet PO 1,000 mg Q6H PRN Administration Mild Pain (1-3) or Fever Hydrocodone Bitart/Acetaminophen 1 tab 09/16/24 16:50 09/17/24 15:46 Hydrocodone/Acetaminophen (*Crx) 5-325 Mg Tablet PO 1 tab Q6H PRN Administration Pain Rated 4-6 Dicyclomine HCl 20 mg 09/15/24 18:59 09/17/24 15:46 Dicyclomine Hcl 10 Mg Capsule PO 20 mg QID PRN Administration Abdominal Cramping Docusate Sodium 100 mg 09/15/24 21:15 09/17/24 08:33 Docusate Sodium 100 Mg Capsule PO 100 mg Q12HR PRN Administration constipation Famotidine 20 mg 09/15/24 21:15 09/17/24 08:32 Famotidine 20 Mg Tablet PO 20 mg Q12HR ANGELA Administration Fentanyl Citrate 25 mcg 09/15/24 18:59 09/16/24 15:55 Fentanyl Citrate Inj (*Crx) 100 Mcg/2 Ml Vial IV PUSH 25 mcg Q4H PRN Administration Pain Rated 7-10 Fluticasone Propionate 1 spray 09/16/24 09:00 09/17/24 08:33 Fluticasone Propionate 0.05% Na Spr 16 Gm Btl (*Bkc) NASAL 1 spray DAILY ANGELA Administration Sodium Chloride 1,000 mls @ 100 mls/hr 09/16/24 14:30 09/17/24 15:47 Normal Saline Iv IV CONT 100 mls/hr .Q10H ANGELA Administration Metronidazole 500 mg in 100 mls @ 100 mls/hr 09/17/24 16:00 09/17/24 17:20 Flagyl 500 Mg/Iso Soln 100 Ml IVPB Infused Q8H ANGELA Infusion Ceftriaxone Sodium 1 gm in 50 mls @ 100 mls/hr 09/17/24 15:00 09/17/24 16:17 Rocephin 1 Gm/Ns 50 Ml IVPB Infused Q24H ANGELA Infusion Levothyroxine Sodium 200 mcg 09/16/24 06:30 09/17/24 08:32 Levothyroxine Sodium 100 Mcg Tablet PO 200 mcg DAILY@0630 ANGELA Administration Loratadine 10 mg 09/15/24 21:12 Loratadine 10 Mg Tablet PO DAILY PRN allergy symptoms Magnesium Citrate 300 ml 09/17/24 20:00 Magnesium Citrate 300 Ml Btl PO 09/17/24 20:01 ONCE ONE Metoprolol Tartrate 50 mg 09/16/24 09:00 09/17/24 08:33 Metoprolol Tartrate 50 Mg Tab PO 50 mg Q12HR ANGELA Administration Minoxidil 2.5 mg 09/16/24 09:00 09/17/24 08:33 Minoxidil 2.5 Mg Tablet PO 2.5 mg DAILY ANGELA Administration Morphine Sulfate 2 mg 09/15/24 19:00 09/16/24 09:00 Morphine Sulfate (*Crx) 2 Mg/Ml Inj IV PUSH 2 mg Q4H PRN Administration Pain Rated 4-6 Morphine Sulfate 2 mg 09/17/24 15:02 Morphine Sulfate (*Crx) 2 Mg/Ml Inj IV PUSH Q4H PRN Pain Rated 7-10 Multi-Ingred Cream/Lotion/Oil/Oint 1 applic 09/16/24 09:00 09/17/24 17:27 Eucerin Cream 120 Gm Jar TOPICAL 1 applic BID ANGELA Administration Ondansetron HCl 4 mg 09/15/24 17:08 09/16/24 09:00 Ondansetron Inj 4 Mg/2 Ml Vial IV PUSH 4 mg Q4H PRN Administration Nausea Pantoprazole Sodium 40 mg 09/16/24 09:00 09/17/24 08:33 Pantoprazole Sodium Iv 40 Mg Vial IV PUSH 40 mg QAM ANGELA Administration Polyethylene Glycol 17 gm 09/15/24 21:12 09/16/24 12:59 Polyethylene Glycol 3350 17 Gm Powd.Pack PO 17 gm DAILY PRN Administration Constipation Spironolactone 25 mg 09/16/24 09:00 09/17/24 08:33 Spironolactone 25 Mg Tablet PO 25 mg DAILY ANGELA Administration Tamsulosin HCl 0.4 mg 09/16/24 09:00 09/17/24 08:33 Tamsulosin Hcl 0.4 Mg Capsule PO 0.4 mg QAM ANGELA Administration Radiology Results: ITS Impressions Abdomen/Pelvis CT 09/15/24 16:02 IMPRESSION: 1. No evidence of appendicitis, diverticulitis or intestinal obstruction. 2. Hepatomegaly. 3. Hypodensity in the liver which may be a cyst. Unchanged from previous examination. 4. Tiny calcific area in the right kidney upper pole unchanged from previous examination. 5. Constipation with proctitis. Renal Ultrasound 09/17/24 09:01 IMPRESSION: Partially visualized right kidney with inability to have proper window for vascularity assessment. Possible mild left hydronephrosis. Follow-up advised. Labs Labs: Laboratory Tests 09/17/24 05:06 09/17/24 05:06 Calcium 8.5 Phosphorus 4.8 H Magnesium 3.0 H Total Creatine Kinase < 20 L Albumin 3.8
--- NOTE | 2024-09-17 14:50 | PM.IMPN ---
Progress Note: A&P Assessment and Plan (1) GI (gastrointestinal bleed): Code(s): K92.2 - Gastrointestinal hemorrhage, unspecified Status: Acute Assessment and Plan: -Recent black and bloody stools with significantly elevated BUN -Guaiac positive in ER -LLQ abdominal pain and rectal pain -CT imaging with fecal stasis and inflammation consistent with proctitis -GI consulted -Patient clear liquid diet on admit, NPO after midnight Planned EGD and colonoscopy today (2) Chronic anticoagulation: Code(s): Z79.01 - [facility] (current) use of anticoagulants Status: Acute Assessment and Plan: -On Eliquis 5 mg BID for atrial fibrillation -Hold anticoagulation for now (3) Hypokalemia: Code(s): E87.6 - Hypokalemia Status: Acute Assessment and Plan: -Potassium 3.0 on admit Replace and monitor (4) Hyponatremia: Code(s): E87.1 - Hypo-osmolality and hyponatremia Status: Chronic Assessment and Plan: -Chronic hyponatremia normally 130-135, was 128 on admission Continue to monitor (5) Benign hypertension with chronic kidney disease: Code(s): I12.9 - Hypertensive chronic kidney disease with stage 1 through stage 4 chronic kidney disease, or unspecified chronic kidney disease Status: Chronic Assessment and Plan: -BP soft on admit Continue to monitor on metoprolol (6) Chronic kidney disease, stage IV (severe): Code(s): N18.4 - Chronic kidney disease, stage 4 (severe) Status: Chronic Assessment and Plan: -JENA on CKD noted on admit -Most of his home medications are nephrotoxic -continue spironolactone, hold Bumex and acetazolamide as he seems over-diuresed -Consider restarting meds as tolerated Nephrology on board (7) History of chronic CHF: Code(s): Z86.79 - Personal history of other diseases of the circulatory system Status: Chronic Assessment and Plan: -No dyspnea or pulmonary edema noted on admit -Watch for fluid overload with diuretics on hold (8) Venous stasis ulcer of right foot: Code(s): I83.015 - Varicose veins of right lower extremity with ulcer other part of foot Status: Acute Assessment and Plan: 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 Reportedly told at most recent visit on XX that there were no further interventions to increased blood flow to his affected extremity as the disease is below the knee. (10) CHF (congestive heart failure): Qualifiers: Heart failure chronicity: chronic Heart failure type: diastolic Qualified Code(s): I50.32 - Chronic diastolic (congestive) heart failure Code(s): I50.9 - Heart failure, unspecified Status: Chronic Assessment and Plan: - echo, previous: Estimated EF 65-70%, grade 1 diastolic dysfunction. Technically difficult echo. See report for details. - continue home medications: Bumex (adjusting administration times to help patient get improved sleep), metolazone, spironolactone. Hold Diamox, contraindicated in CKD stage 4. - monitor I&Os daily weights (11) Atrial fibrillation: Qualifiers: Atrial fibrillation type: longstanding persistent Qualified Code(s): I48.11 - Longstanding persistent atrial fibrillation Code(s): I48.91 - Unspecified atrial fibrillation Status: Chronic Assessment and Plan: - continue home medications: Eliquis and Metoprolol. - Eliquis is on hold currently due to GI bleed (12) Chronic anemia: Code(s): D64.9 - Anemia, unspecified Status: Acute Assessment and Plan: At baseline - transfuse if <7. - monitor (13) CKD (chronic kidney disease) stage 3, GFR 30-59 ml/min: Qualifiers: Chronic kidney disease stage 3 subtype: stage 3b (GFR 30-44) Qualified Code(s): N18.32 - Chronic kidney disease, stage 3b Code(s): N18.3 - Chronic kidney disease, stage 3 (moderate) Status: Acute Assessment and Plan: - creatinine 1.82 and GFR 36 baseline - trend renal function - trend electrolytes, correct as needed (14) Essential (primary) hypertension: Code(s): I10 - Essential (primary) hypertension Status: Chronic Assessment and Plan: - continue home medications: Metoprolol - monitor (15) AMELIA (obstructive sleep apnea): Code(s): G47.33 - Obstructive sleep apnea (adult) (pediatric) Status: Acute Assessment and Plan: - continue home CPAP Plan Proctitis will place on empiric antibiotics he has tolerated ceftriaxone/cefepime in the past. QTC is prolonged so will avoid Cipro Subjective Date/time seen: 09/17/24 14:50 Interval history: Complains of rectal pain. He is going for EGD and colonoscopy today. Reports lower abdominal discomfort No nausea vomiting. Review of Systems Review of Systems: All systems reviewed & are unremarkable except as noted in HPI and below Exam Narrative: GENERAL: Well-appearing, well-nourished, and in no acute distress. HEENT: Normocephalic, atraumatic, PERRL, EOMI CHEST: Clear to auscultation. No respiratory distress. HEART: Regular rate and rhythm. No murmur heard. ABDOMEN: Soft, tenderness to palpation left lower quadrant, no guarding or rebound. Abdomen is nondistended, normal active bowel sounds. EXTREMITIES: Normal range of motion below-knee amputation right lower extremity. No edema. SKIN: Warm, dry, no rash. NEURO: No focal deficits. Alert and oriented x3. Objective Data Vital Signs Vital Signs: Vital Signs - 24 hr 09/16/24 20:00 09/16/24 20:11 09/16/24 20:14 Temperature 98.3 F Pulse Rate 69 74 Respiratory Rate 17 Blood Pressure 106/54 L Pulse Oximetry 100 Oxygen Delivery CPAP 09/16/24 21:15 09/17/24 01:29 09/17/24 05:41 Temperature 96.7 F L Pulse Rate 83 80 71 Respiratory Rate 17 Blood Pressure 115/53 L Pulse Oximetry 99 98 100 Oxygen Delivery CPAP CPAP 09/17/24 06:05 09/17/24 08:30 09/17/24 08:33 Temperature Pulse Rate 78 78 Respiratory Rate Blood Pressure Pulse Oximetry 98 Oxygen Delivery CPAP Room Air Intake/Output Intake/Output: Intake & Output 09/14/24 09/15/24 09/16/24 09/17/24 23:59 23:59 23:59 23:59 Intake Total 1000 1508 1480 Output Total 1100 400 Balance 7039 456 7696 Meds/Results Medications: Active Medications Generic Name Dose Route Start Last Admin Trade Name Freq PRN Reason Stop Dose Admin Acetaminophen 1,000 mg 09/15/24 18:59 09/16/24 21:27 Acetaminophen 500 Mg Tablet PO 1,000 mg Q6H PRN Administration Mild Pain (1-3) or Fever Hydrocodone Bitart/Acetaminophen 1 tab 09/16/24 16:50 09/17/24 08:32 Hydrocodone/Acetaminophen (*Crx) 5-325 Mg Tablet PO 1 tab Q6H PRN Administration Pain Rated 4-6 Dicyclomine HCl 20 mg 09/15/24 18:59 09/16/24 20:11 Dicyclomine Hcl 10 Mg Capsule PO 20 mg QID PRN Administration Abdominal Cramping Docusate Sodium 100 mg 09/15/24 21:15 09/17/24 08:33 Docusate Sodium 100 Mg Capsule PO 100 mg Q12HR PRN Administration constipation Famotidine 20 mg 09/15/24 21:15 09/17/24 08:32 Famotidine 20 Mg Tablet PO 20 mg Q12HR ANGELA Administration Fentanyl Citrate 25 mcg 09/15/24 18:59 09/16/24 15:55 Fentanyl Citrate Inj (*Crx) 100 Mcg/2 Ml Vial IV PUSH 25 mcg Q4H PRN Administration Pain Rated 7-10 Fluticasone Propionate 1 spray 09/16/24 09:00 09/17/24 08:33 Fluticasone Propionate 0.05% Na Spr 16 Gm Btl (*Bkc) NASAL 1 spray DAILY ANGELA Administration Sodium Chloride 1,000 mls @ 100 mls/hr 09/16/24 14:30 09/17/24 02:07 Normal Saline Iv IV CONT 100 mls/hr .Q10H ANGELA Administration Levothyroxine Sodium 200 mcg 09/16/24 06:30 09/17/24 08:32 Levothyroxine Sodium 100 Mcg Tablet PO 200 mcg DAILY@0630 ANGELA Administration Loratadine 10 mg 09/15/24 21:12 Loratadine 10 Mg Tablet PO DAILY PRN allergy symptoms Metoprolol Tartrate 50 mg 09/16/24 09:00 09/17/24 08:33 Metoprolol Tartrate 50 Mg Tab PO 50 mg Q12HR ANGELA Administration Minoxidil 2.5 mg 09/16/24 09:00 09/17/24 08:33 Minoxidil 2.5 Mg Tablet PO 2.5 mg DAILY ANGELA Administration Morphine Sulfate 2 mg 09/15/24 19:00 09/16/24 09:00 Morphine Sulfate (*Crx) 2 Mg/Ml Inj IV PUSH 2 mg Q4H PRN Administration Pain Rated 4-6 Multi-Ingred Cream/Lotion/Oil/Oint 1 applic 09/16/24 09:00 09/17/24 08:34 Eucerin Cream 120 Gm Jar TOPICAL Not Given BID ANGELA Ondansetron HCl 4 mg 09/15/24 17:08 09/16/24 09:00 Ondansetron Inj 4 Mg/2 Ml Vial IV PUSH 4 mg Q4H PRN Administration Nausea Pantoprazole Sodium 40 mg 09/16/24 09:00 09/17/24 08:33 Pantoprazole Sodium Iv 40 Mg Vial IV PUSH 40 mg QAM ANGELA Administration Polyethylene Glycol 17 gm 09/15/24 21:12 09/16/24 12:59 Polyethylene Glycol 3350 17 Gm Powd.Pack PO 17 gm DAILY PRN Administration Constipation Spironolactone 25 mg 09/16/24 09:00 09/17/24 08:33 Spironolactone 25 Mg Tablet PO 25 mg DAILY ANGELA Administration Tamsulosin HCl 0.4 mg 09/16/24 09:00 09/17/24 08:33 Tamsulosin Hcl 0.4 Mg Capsule PO 0.4 mg QAM ANGELA Administration Radiology Results: ITS Impressions Abdomen/Pelvis CT 09/15/24 16:02 IMPRESSION: 1. No evidence of appendicitis, diverticulitis or intestinal obstruction. 2. Hepatomegaly. 3. Hypodensity in the liver which may be a cyst. Unchanged from previous examination. 4. Tiny calcific area in the right kidney upper pole unchanged from previous examination. 5. Constipation with proctitis. Renal Ultrasound 09/17/24 09:01 IMPRESSION: Partially visualized right kidney with inability to have proper window for vascularity assessment. Possible mild left hydronephrosis. Follow-up advised. Labs Labs: Laboratory Results - last 24 hr 09/16/24 09/16/24 09/16/24 22:31 22:31 22:32 WBC RBC Hgb Hct MCV MCH MCHC RDW Plt Count MPV Immature Gran % (Auto) Neut % (Auto) Lymph % (Auto) [place] % (Auto) Eos % (Auto) Baso % (Auto) Lymph # (Auto) [place] # (Auto) Eos # (Auto) Baso # (Auto) Abs Immat Gran (auto) Absolute Neuts (auto) Absolute Nucleated RBC Band Neutrophils % Nucleated RBC % Platelet Estimate Hypochromasia Tear Drop Cells Ovalocytes Schistocytes Sodium Potassium Chloride Carbon Dioxide Anion Gap BUN Creatinine Estim Creat Clear Calc Estimated GFR Glucose Calcium Phosphorus Magnesium Total Creatine Kinase Albumin Urine Eosinophils None seen U Random Total Protein 8 8 Ur Random Sodium 41 Ur Random Urea 647 Urine Creatinine 56.6 Cancelled Protein/Creat Ratio 2 0.14 09/17/24 05:06 WBC 12.0 H RBC 3.43 L Hgb 8.6 L Hct 28.5 L MCV 83.1 MCH 25.1 L MCHC 30.2 L RDW 15.3 H Plt Count 455 H MPV 10.0 Immature Gran % (Auto) 0.8 H Neut % (Auto) 83.3 H Lymph % (Auto) 4.6 L [place] % (Auto) 6.4 Eos % (Auto) 4.4 Baso % (Auto) 0.5 Lymph # (Auto) 0.55 L [place] # (Auto) 0.8 H Eos # (Auto) 0.5 H Baso # (Auto) 0.1 Abs Immat Gran (auto) 0.09 H Absolute Neuts (auto) 10.0 H Absolute Nucleated RBC 0.000 Band Neutrophils % Not Reportable Nucleated RBC % 0.0 Platelet Estimate Increased Hypochromasia 1+ Tear Drop Cells 1+ Ovalocytes 1+ Schistocytes None seen Sodium 129 L Potassium 3.2 L Chloride 91 L Carbon Dioxide 23 Anion Gap 15 H BUN 100 H D Creatinine 2.52 H Estim Creat Clear Calc 34 Estimated GFR 25 L Glucose 109 Calcium 8.5 Phosphorus 4.8 H Magnesium 3.0 H Total Creatine Kinase < 20 L Albumin 3.8 Urine Eosinophils U Random Total Protein Ur Random Sodium Ur Random Urea Urine Creatinine Protein/Creat Ratio 2
[2024-09-17] MEDS: DICYCLOMINE HCL 10 MG CAPSULE 20 MG PO ×2 (15:46→21:30)
[2024-09-17] MEDS: metroNIDAZOLE 500 MG/ISO 100ML 500 MG/100 ML BAG 100 MG IVPB (16:17)
--- NOTE | 2024-09-17 17:03 | P.PNGI_ITS ---
Progress Note: A&P Assessment and Plan (1) GI (gastrointestinal bleed): Code(s): K92.2 - Gastrointestinal hemorrhage, unspecified Status: Acute Assessment and Plan: unable to complete full bowel prep tomorrow egd (report dark stool) and sigmoidoscopy (we do not have to do full colonoscopy- CT scan showed possible proctitis, also fecal impaction and this also can be treated with sigmoidoscope) (2) Proctitis: Code(s): K62.89 - Other specified diseases of anus and rectum Status: Acute Assessment and Plan: sigmoidoscopy (3) Fecal impaction: Code(s): K56.41 - Fecal impaction Status: Acute (4) Acute on chronic kidney failure: Code(s): N17.9 - Acute kidney failure, unspecified; N18.9 - Chronic kidney disease, unspecified Status: Resolved Assessment and Plan: 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 this also can contribute to anemia (5) Chronic anemia: Code(s): D64.9 - Anemia, unspecified Status: Acute Subjective Date/time seen: 09/17/24 17:03 Interval history: he did not tolerate much of the bowel prep and has not had a good BM no changes, still abdominal cramping Review of Systems Review of Systems: All systems reviewed & are unremarkable except as noted in HPI and below Exam Const: General: comfortable and no acute distress HENMT: Face/Nose/Sinus: Normal nares present Eyes: General: appearance normal, both eyes and all related structures Neck: Neck: supple Resp: Auscultation: clear to auscultation bilaterally Cardio: Rate: regular rate Rhythm: regular rhythm GI: Inspection: non-distended GI Palp: Yes Soft to palpation and No Guarding due to palpation present (GI) Auscultation: normal bowel sounds Skin: General skin exam: normal color Neuro: Speech: normal speech Extrem: Other: Rt BKA Psych: Mental Status: mental status grossly normal Objective Data Vital Signs Vital Signs: Vital Signs - 24 hr 09/16/24 20:00 09/16/24 20:11 09/16/24 20:14 Temperature 98.3 F Pulse Rate 69 74 Respiratory Rate 17 Blood Pressure 106/54 L Pulse Oximetry 100 Oxygen Delivery CPAP 09/16/24 21:15 09/17/24 01:29 09/17/24 05:41 Temperature 96.7 F L Pulse Rate 83 80 71 Respiratory Rate 17 Blood Pressure 115/53 L Pulse Oximetry 99 98 100 Oxygen Delivery CPAP CPAP 09/17/24 06:05 09/17/24 08:30 09/17/24 08:33 Temperature Pulse Rate 78 78 Respiratory Rate Blood Pressure Pulse Oximetry 98 Oxygen Delivery CPAP Room Air Intake/Output Intake/Output: Intake & Output 09/14/24 09/15/24 09/16/24 09/17/24 23:59 23:59 23:59 23:59 Intake Total 1000 1508 2480 Output Total 1100 400 Balance 5477 481 9714 Meds/Results Medications: Active Medications Generic Name Dose Route Start Last Admin Trade Name Freq PRN Reason Stop Dose Admin Acetaminophen 1,000 mg 09/15/24 18:59 09/16/24 21:27 Acetaminophen 500 Mg Tablet PO 1,000 mg Q6H PRN Administration Mild Pain (1-3) or Fever Hydrocodone Bitart/Acetaminophen 1 tab 09/16/24 16:50 09/17/24 15:46 Hydrocodone/Acetaminophen (*Crx) 5-325 Mg Tablet PO 1 tab Q6H PRN Administration Pain Rated 4-6 Bisacodyl 20 mg 09/17/24 17:30 Bisacodyl 5 Mg Tablet Ec PO 09/17/24 17:31 ONCE ONE Dicyclomine HCl 20 mg 09/15/24 18:59 09/17/24 15:46 Dicyclomine Hcl 10 Mg Capsule PO 20 mg QID PRN Administration Abdominal Cramping Docusate Sodium 100 mg 09/15/24 21:15 09/17/24 08:33 Docusate Sodium 100 Mg Capsule PO 100 mg Q12HR PRN Administration constipation Famotidine 20 mg 09/15/24 21:15 09/17/24 08:32 Famotidine 20 Mg Tablet PO 20 mg Q12HR ANGELA Administration Fentanyl Citrate 25 mcg 09/15/24 18:59 09/16/24 15:55 Fentanyl Citrate Inj (*Crx) 100 Mcg/2 Ml Vial IV PUSH 25 mcg Q4H PRN Administration Pain Rated 7-10 Fluticasone Propionate 1 spray 09/16/24 09:00 09/17/24 08:33 Fluticasone Propionate 0.05% Na Spr 16 Gm Btl (*Bkc) NASAL 1 spray DAILY ANGELA Administration Sodium Chloride 1,000 mls @ 100 mls/hr 09/16/24 14:30 09/17/24 15:47 Normal Saline Iv IV CONT 100 mls/hr .Q10H ANGELA Administration Metronidazole 500 mg in 100 mls @ 100 mls/hr 09/17/24 16:00 09/17/24 15:47 Flagyl 500 Mg/Iso Soln 100 Ml IVPB 100 mls/hr Q8H ANGELA Administration Ceftriaxone Sodium 1 gm in 50 mls @ 100 mls/hr 09/17/24 15:00 09/17/24 15:47 Rocephin 1 Gm/Ns 50 Ml IVPB 100 mls/hr Q24H ANGELA Administration Levothyroxine Sodium 200 mcg 09/16/24 06:30 09/17/24 08:32 Levothyroxine Sodium 100 Mcg Tablet PO 200 mcg DAILY@0630 ANGELA Administration Loratadine 10 mg 09/15/24 21:12 Loratadine 10 Mg Tablet PO DAILY PRN allergy symptoms Metoprolol Tartrate 50 mg 09/16/24 09:00 09/17/24 08:33 Metoprolol Tartrate 50 Mg Tab PO 50 mg Q12HR ANGELA Administration Minoxidil 2.5 mg 09/16/24 09:00 09/17/24 08:33 Minoxidil 2.5 Mg Tablet PO 2.5 mg DAILY ANGELA Administration Morphine Sulfate 2 mg 09/15/24 19:00 09/16/24 09:00 Morphine Sulfate (*Crx) 2 Mg/Ml Inj IV PUSH 2 mg Q4H PRN Administration Pain Rated 4-6 Morphine Sulfate 2 mg 09/17/24 15:02 Morphine Sulfate (*Crx) 2 Mg/Ml Inj IV PUSH Q4H PRN Pain Rated 7-10 Multi-Ingred Cream/Lotion/Oil/Oint 1 applic 09/16/24 09:00 09/17/24 08:34 Eucerin Cream 120 Gm Jar TOPICAL Not Given BID [facility] Ondansetron HCl 4 mg 09/15/24 17:08 09/16/24 09:00 Ondansetron Inj 4 Mg/2 Ml Vial IV PUSH 4 mg Q4H PRN Administration Nausea Pantoprazole Sodium 40 mg 09/16/24 09:00 09/17/24 08:33 Pantoprazole Sodium Iv 40 Mg Vial IV PUSH 40 mg QAM ANGELA Administration Polyethylene Glycol 17 gm 09/15/24 21:12 09/16/24 12:59 Polyethylene Glycol 3350 17 Gm Powd.Pack PO 17 gm DAILY PRN Administration Constipation Spironolactone 25 mg 09/16/24 09:00 09/17/24 08:33 Spironolactone 25 Mg Tablet PO 25 mg DAILY ANGELA Administration Tamsulosin HCl 0.4 mg 09/16/24 09:00 09/17/24 08:33 Tamsulosin Hcl 0.4 Mg Capsule PO 0.4 mg QAM ANGELA Administration Radiology Results: ITS Impressions Abdomen/Pelvis CT 09/15/24 16:02 IMPRESSION: 1. No evidence of appendicitis, diverticulitis or intestinal obstruction. 2. Hepatomegaly. 3. Hypodensity in the liver which may be a cyst. Unchanged from previous examination. 4. Tiny calcific area in the right kidney upper pole unchanged from previous examination. 5. Constipation with proctitis. Renal Ultrasound 09/17/24 09:01 IMPRESSION: Partially visualized right kidney with inability to have proper window for vascularity assessment. Possible mild left hydronephrosis. Follow-up advised. Labs Labs: Laboratory Results - last 24 hr 09/16/24 09/16/24 09/16/24 22:31 22:31 22:32 WBC RBC Hgb Hct MCV MCH MCHC RDW Plt Count MPV Immature Gran % (Auto) Neut % (Auto) Lymph % (Auto) [place] % (Auto) Eos % (Auto) Baso % (Auto) Lymph # (Auto) [place] # (Auto) Eos # (Auto) Baso # (Auto) Abs Immat Gran (auto) Absolute Neuts (auto) Absolute Nucleated RBC Band Neutrophils % Nucleated RBC % Platelet Estimate Hypochromasia Tear Drop Cells Ovalocytes Schistocytes Sodium Potassium Chloride Carbon Dioxide Anion Gap BUN Creatinine Estim Creat Clear Calc Estimated GFR Glucose Calcium Phosphorus Magnesium Total Creatine Kinase Albumin Urine Eosinophils None seen U Random Total Protein 8 8 Ur Random Sodium 41 Ur Random Urea 647 Urine Creatinine 56.6 Cancelled Protein/Creat Ratio 2 0.14 09/17/24 05:06 WBC 12.0 H RBC 3.43 L Hgb 8.6 L Hct 28.5 L MCV 83.1 MCH 25.1 L MCHC 30.2 L RDW 15.3 H Plt Count 455 H MPV 10.0 Immature Gran % (Auto) 0.8 H Neut % (Auto) 83.3 H Lymph % (Auto) 4.6 L [place] % (Auto) 6.4 Eos % (Auto) 4.4 Baso % (Auto) 0.5 Lymph # (Auto) 0.55 L [place] # (Auto) 0.8 H Eos # (Auto) 0.5 H Baso # (Auto) 0.1 Abs Immat Gran (auto) 0.09 H Absolute Neuts (auto) 10.0 H Absolute Nucleated RBC 0.000 Band Neutrophils % Not Reportable Nucleated RBC % 0.0 Platelet Estimate Increased Hypochromasia 1+ Tear Drop Cells 1+ Ovalocytes 1+ Schistocytes None seen Sodium 129 L Potassium 3.2 L Chloride 91 L Carbon Dioxide 23 Anion Gap 15 H BUN 100 H D Creatinine 2.52 H Estim Creat Clear Calc 34 Estimated GFR 25 L Glucose 109 Calcium 8.5 Phosphorus 4.8 H Magnesium 3.0 H Total Creatine Kinase < 20 L Albumin 3.8 Urine Eosinophils U Random Total Protein Ur Random Sodium Ur Random Urea Urine Creatinine Protein/Creat Ratio 2
[2024-09-17] MEDS: KCL 20 MEQ/SW 100 ML 100 ML 50 MEQ IVPB (17:24)
[2024-09-17] MEDS: BISACODYL 5 MG TABLET EC 20 MG PO (17:26)
[2024-09-17] MEDS: EUCERIN CREAM 120 GM JAR 1 APPLIC TOPICAL (17:27)
[2024-09-17] MEDS: MORPHINE SULFATE (*CRX) 2 MG/ML INJ IV PUSH (21:30)
[2024-09-18] VITALS (10 sets, daily range): BP systolic 112–137; BP diastolic 51–66; PULSE 62–78; RESP 12–17; TEMP 35.9–36.4; O2SAT 96–100
[2024-09-18] MEDS: SODIUM CHLORIDE 0.9% IV 1,000 ML 50 ML IV CONT (01:07)
[2024-09-18] MEDS: MORPHINE SULFATE (*CRX) 2 MG/ML INJ IV PUSH ×2 (04:15→20:56)
[2024-09-18 05:40] LABS: Basophils Absolute Auto 0.1 K/mm3 (0.0-0.1); Basophils Percent Auto 0.6 % (0.2-1.2); Eosinophils Absolute Auto 0.4 K/mm3 (0-0.3); Eosinophils Percent Auto 3.2 % (0-4.4); Hematocrit 29.6 % (42.0-52.0); Hemoglobin 8.9 g/dL (14.0-18.0); Immature Granulocyte Absolute 0.08 K/mm3 (0.00-0.031); Immature Granulocyte Percent A 0.7 % (0-0.5); Lymphocytes Absolute Auto 0.41 K/mm3 (0.9-3.2); Lymphocytes Percent Auto 3.4 % (18.3-44.2); Mean Corpuscular HGB Conc 30.1 g/dl (32-36); Mean Corpuscular Hemoglobin 25.3 pg (26-34); Mean Corpuscular Volume 84.1 fl (80-100); Mean Platelet Volume 10.3 fl (7.4-10.4); Monocytes Absolute Auto 0.7 K/mm3 (0.1-0.6); Monocytes Percent Auto 6.1 % (2.6-8.5); Neutrophils Absolute Auto 10.4 K/mm3 (1.3-6.7); Platelet Count Result 436 k/mm3 (150-375); Red Blood Count 3.52 M/mm3 (4.6-6.20); Red Cell Distribution Width 15.2 % (11.5-14.5); White Blood Count 12.1 K/mm3 (4.5-10.0)
[2024-09-18 05:51] LABS: Albumin Level 3.9 g/dL (3.5-5.1); Anion Gap 11 mmol/L (4-12); Blood Urea Nitrogen 81 mg/dL (9-20); Calcium 8.9 mg/dL (8.4-10.2); Carbon Dioxide 26 mmol/L (22-30); Chloride 97 mmol/L (98-107); Estimated CRCL calculation 39 ml/min; Estimated Glomerular Filt Rate 30; Glucose 111 mg/dL (65-110); Magnesium 4.2 mg/dL (1.6-2.3); Phosphorus 3.5 mg/dL (2.5-4.5); Potassium 3.8 mmol/L (3.4-5.0); Sodium 134 mmol/L (137-145)
[2024-09-18 06:05] LABS: Hypochromasia 1+; Ovalocytes 1+; Platelet Estimate Increased (Adequate); Schistocytes None Seen; Tear Drop Cells 1+
--- NOTE | 2024-09-18 08:33 | PM.IMPN ---
Progress Note: A&P Assessment and Plan (1) GI (gastrointestinal bleed): Code(s): K92.2 - Gastrointestinal hemorrhage, unspecified Status: Acute Assessment and Plan: -Recent black and bloody stools with significantly elevated BUN -Guaiac positive in ER -LLQ abdominal pain and rectal pain -CT imaging with fecal stasis and inflammation consistent with proctitis -GI consulted 09/18/2024 Hgb is stable, no acute bleeding, will continue with current treatment and monitor closely. 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 Status: Acute Assessment and Plan: -On Eliquis 5 mg BID for atrial fibrillation -Hold anticoagulation for now (3) Hypokalemia: Code(s): E87.6 - Hypokalemia Status: Acute Assessment and Plan: Replaced (4) Hyponatremia: Code(s): E87.1 - Hypo-osmolality and hyponatremia Status: Chronic Assessment and Plan: -Chronic hyponatremia normally 130-135, was 128 on admission Continue to monitor (5) Benign hypertension with chronic kidney disease: Code(s): I12.9 - Hypertensive chronic kidney disease with stage 1 through stage 4 chronic kidney disease, or unspecified chronic kidney disease Status: Chronic Assessment and Plan: Stable, monitor closely (6) Chronic kidney disease, stage IV (severe): Code(s): N18.4 - Chronic kidney disease, stage 4 (severe) Status: Chronic Assessment and Plan: -JENA on CKD noted on admit -Most of his home medications are nephrotoxic -continue spironolactone, hold Bumex and acetazolamide as he seems over-diuresed -Consider restarting meds as tolerated Nephrology on board (7) History of chronic CHF: Code(s): Z86.79 - Personal history of other diseases of the circulatory system Status: Chronic Assessment and Plan: -No dyspnea or pulmonary edema noted on admit -Watch for fluid overload with diuretics on hold (8) Venous stasis ulcer of right foot: Code(s): I83.015 - Varicose veins of right lower extremity with ulcer other part of foot Status: Acute Assessment and Plan: 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 Reportedly told at most recent visit on XX that there were no further interventions to increased blood flow to his affected extremity as the disease is below the knee. (10) CHF (congestive heart failure): Qualifiers: Heart failure chronicity: chronic Heart failure type: diastolic Qualified Code(s): I50.32 - Chronic diastolic (congestive) heart failure Code(s): I50.9 - Heart failure, unspecified Status: Chronic Assessment and Plan: - echo, previous: Estimated EF 65-70%, grade 1 diastolic dysfunction. Technically difficult echo. See report for details. - continue home medications: Bumex (adjusting administration times to help patient get improved sleep), metolazone, spironolactone. Hold Diamox, contraindicated in CKD stage 4. - monitor I&Os daily weights (11) Atrial fibrillation: Qualifiers: Atrial fibrillation type: longstanding persistent Qualified Code(s): I48.11 - Longstanding persistent atrial fibrillation Code(s): I48.91 - Unspecified atrial fibrillation Status: Chronic Assessment and Plan: - continue home medications: Eliquis and Metoprolol. - Eliquis is on hold currently due to GI bleed (12) Chronic anemia: Code(s): D64.9 - Anemia, unspecified Status: Acute Assessment and Plan: At baseline, stable. - transfuse if <7. - monitor (13) CKD (chronic kidney disease) stage 3, GFR 30-59 ml/min: Qualifiers: Chronic kidney disease stage 3 subtype: stage 3b (GFR 30-44) Qualified Code(s): N18.32 - Chronic kidney disease, stage 3b Code(s): N18.3 - Chronic kidney disease, stage 3 (moderate) Status: Acute Assessment and Plan: - trend renal function - trend electrolytes, correct as needed (14) Essential (primary) hypertension: Code(s): I10 - Essential (primary) hypertension Status: Chronic Assessment and Plan: - continue home medications: Metoprolol - monitor (15) AMELIA (obstructive sleep apnea): Code(s): G47.33 - Obstructive sleep apnea (adult) (pediatric) Status: Acute Assessment and Plan: - continue home CPAP Plan Proctitis will place on empiric antibiotics he has tolerated ceftriaxone/cefepime in the past. QTC is prolonged so will avoid Cipro Subjective Date/time seen: 09/18/24 08:33 Interval history: Patient was seen during the morning rounds today. Patient is feeling slightly better. No shortness of breath or chest pain. No abdominal pain, nausea bone. Mood stable Review of Systems Review of Systems: All systems reviewed & are unremarkable except as noted in HPI and below Exam Narrative: GENERAL: Well-appearing, well-nourished, and in no acute distress. HEENT: Normocephalic, atraumatic, PERRL, EOMI CHEST: Clear to auscultation. No respiratory distress. HEART: Regular rate and rhythm. No murmur heard. ABDOMEN: Soft, tenderness to palpation left lower quadrant, no guarding or rebound. Abdomen is nondistended, normal active bowel sounds. EXTREMITIES: Normal range of motion below-knee amputation right lower extremity. No edema. SKIN: Warm, dry, no rash. NEURO: No focal deficits. Alert and oriented x3. Const: General: no acute distress and uncomfortable Resp: Effort & Inspection: normal respiratory effort Auscultation: clear to auscultation bilaterally Other: Speaking in complete sentences. Cardio: Rate: regular rate Rhythm: regular rhythm GI: Auscultation: normal bowel sounds Skin: Other: RLE erythema improving, ulcer on dorsal foot between the first and second digit extending to the metatarsal region with scant purulence drainage and a soft overlying necrotic eschar. Chronic lymphedema with chronic venous stasis skin changes and dermatitis to the right lower leg. Neuro: Speech: normal speech Extrem: Other: Bilateral lower extremities with chronic lymphedema and venous stasis dermatitis. Erythema improving to right lower extremity. Psych: Mental Status: mental status grossly normal Affect: normal affect Objective Data Vital Signs Vital Signs: Vital Signs - 24 hr 09/17/24 14:00 09/17/24 20:00 09/17/24 20:38 Temperature 36.6 C Pulse Rate 62 71 Respiratory Rate 18 Blood Pressure 109/60 Pulse Oximetry 100 94 Oxygen Delivery Room Air CPAP 09/17/24 21:05 09/17/24 21:30 09/18/24 01:05 Temperature 35.9 C L Pulse Rate 76 85 75 Respiratory Rate 18 Blood Pressure 118/60 Pulse Oximetry 100 97 Oxygen Delivery CPAP 09/18/24 04:54 09/18/24 05:00 Temperature 35.9 C L Pulse Rate 66 74 Respiratory Rate 12 Blood Pressure 116/60 Pulse Oximetry 100 96 Oxygen Delivery CPAP Intake/Output Intake/Output: Intake & Output 09/15/24 09/16/24 09/17/24 09/18/24 23:59 23:59 23:59 23:59 Intake Total 1000 1508 3170 933.3 Output Total 1100 1450 750 Balance 2411 126 3822 183.3 Meds/Results Medications: Active Medications Generic Name Dose Route Start Last Admin Trade Name Freq PRN Reason Stop Dose Admin Acetaminophen 1,000 mg 09/15/24 18:59 09/16/24 21:27 Acetaminophen 500 Mg Tablet PO 1,000 mg Q6H PRN Administration Mild Pain (1-3) or Fever Hydrocodone Bitart/Acetaminophen 1 tab 09/16/24 16:50 09/17/24 15:46 Hydrocodone/Acetaminophen (*Crx) 5-325 Mg Tablet PO 1 tab Q6H PRN Administration Pain Rated 4-6 Dicyclomine HCl 20 mg 09/15/24 18:59 09/17/24 21:30 Dicyclomine Hcl 10 Mg Capsule PO 20 mg QID PRN Administration Abdominal Cramping Docusate Sodium 100 mg 09/15/24 21:15 09/17/24 08:33 Docusate Sodium 100 Mg Capsule PO 100 mg Q12HR PRN Administration constipation Famotidine 20 mg 09/15/24 21:15 09/17/24 21:29 Famotidine 20 Mg Tablet PO 20 mg Q12HR ANGELA Administration Fentanyl Citrate 25 mcg 09/15/24 18:59 09/16/24 15:55 Fentanyl Citrate Inj (*Crx) 100 Mcg/2 Ml Vial IV PUSH 25 mcg Q4H PRN Administration Pain Rated 7-10 Fluticasone Propionate 1 spray 09/16/24 09:00 09/17/24 08:33 Fluticasone Propionate 0.05% Na Spr 16 Gm Btl (*Bkc) NASAL 1 spray DAILY ANGELA Administration Sodium Chloride 1,000 mls @ 50 mls/hr 09/16/24 14:30 09/18/24 01:07 Normal Saline Iv IV CONT 50 mls/hr .Q20H ANGELA Administration Metronidazole 500 mg in 100 mls @ 100 mls/hr 09/17/24 16:00 09/18/24 00:00 Flagyl 500 Mg/Iso Soln 100 Ml IVPB 100 mls/hr Q8H ANGELA Administration Ceftriaxone Sodium 1 gm in 50 mls @ 100 mls/hr 09/17/24 15:00 09/17/24 16:17 Rocephin 1 Gm/Ns 50 Ml IVPB Infused Q24H ANGELA Infusion Levothyroxine Sodium 200 mcg 09/16/24 06:30 09/17/24 08:32 Levothyroxine Sodium 100 Mcg Tablet PO 200 mcg DAILY@0630 ANGELA Administration Loratadine 10 mg 09/15/24 21:12 Loratadine 10 Mg Tablet PO DAILY PRN allergy symptoms Metoprolol Tartrate 50 mg 09/16/24 09:00 09/17/24 21:30 Metoprolol Tartrate 50 Mg Tab PO 50 mg Q12HR ANGELA Administration Minoxidil 2.5 mg 09/16/24 09:00 09/17/24 08:33 Minoxidil 2.5 Mg Tablet PO 2.5 mg DAILY ANGELA Administration Morphine Sulfate 2 mg 09/15/24 19:00 09/18/24 04:15 Morphine Sulfate (*Crx) 2 Mg/Ml Inj IV PUSH 2 mg Q4H PRN Administration Pain Rated 4-6 Morphine Sulfate 2 mg 09/17/24 15:02 09/17/24 21:30 Morphine Sulfate (*Crx) 2 Mg/Ml Inj IV PUSH 2 mg Q4H PRN Administration Pain Rated 7-10 Multi-Ingred Cream/Lotion/Oil/Oint 1 applic 09/16/24 09:00 09/17/24 17:27 Eucerin Cream 120 Gm Jar TOPICAL 1 applic BID ANGELA Administration Ondansetron HCl 4 mg 09/15/24 17:08 09/16/24 09:00 Ondansetron Inj 4 Mg/2 Ml Vial IV PUSH 4 mg Q4H PRN Administration Nausea Pantoprazole Sodium 40 mg 09/16/24 09:00 09/17/24 08:33 Pantoprazole Sodium Iv 40 Mg Vial IV PUSH 40 mg QAM ANGELA Administration Polyethylene Glycol 17 gm 09/15/24 21:12 09/16/24 12:59 Polyethylene Glycol 3350 17 Gm Powd.Pack PO 17 gm DAILY PRN Administration Constipation Spironolactone 25 mg 09/16/24 09:00 09/17/24 08:33 Spironolactone 25 Mg Tablet PO 25 mg DAILY ANGELA Administration Tamsulosin HCl 0.4 mg 09/16/24 09:00 09/17/24 08:33 Tamsulosin Hcl 0.4 Mg Capsule PO 0.4 mg QAM ANGELA Administration Radiology Results: ITS Impressions Abdomen/Pelvis CT 09/15/24 16:02 IMPRESSION: 1. No evidence of appendicitis, diverticulitis or intestinal obstruction. 2. Hepatomegaly. 3. Hypodensity in the liver which may be a cyst. Unchanged from previous examination. 4. Tiny calcific area in the right kidney upper pole unchanged from previous examination. 5. Constipation with proctitis. Renal Ultrasound 09/17/24 09:01 IMPRESSION: Partially visualized right kidney with inability to have proper window for vascularity assessment. Possible mild left hydronephrosis. Follow-up advised. Labs Labs: Laboratory Results - last 24 hr 09/18/24 04:52 WBC 12.1 H RBC 3.52 L Hgb 8.9 L Hct 29.6 L MCV 84.1 MCH 25.3 L MCHC 30.1 L RDW 15.2 H Plt Count 436 H MPV 10.3 Immature Gran % (Auto) 0.7 H Neut % (Auto) 86.0 H Lymph % (Auto) 3.4 L [place] % (Auto) 6.1 Eos % (Auto) 3.2 Baso % (Auto) 0.6 Lymph # (Auto) 0.41 L [place] # (Auto) 0.7 H Eos # (Auto) 0.4 H Baso # (Auto) 0.1 Abs Immat Gran (auto) 0.08 H Absolute Neuts (auto) 10.4 H Absolute Nucleated RBC 0.000 Band Neutrophils % Not Reportable Nucleated RBC % 0.0 Platelet Estimate Increased Hypochromasia 1+ Tear Drop Cells 1+ Ovalocytes 1+ Schistocytes None seen Sodium 134 L Potassium 3.8 Chloride 97 L Carbon Dioxide 26 Anion Gap 11 BUN 81 H D Creatinine 2.18 H Estim Creat Clear Calc 39 Estimated GFR 30 L Glucose 111 H Calcium 8.9 Phosphorus 3.5 Magnesium 4.2 H Albumin 3.9 Quality VTE Prophylaxis VTE prophylaxis: mechanical ordered
[2024-09-18] MEDS: PANTOPRAZOLE SODIUM IV 40 MG VIAL IV PUSH (10:08)
--- NOTE | 2024-09-18 11:11 | P.PNNP_ITS ---
Progress Note: A&P Assessment and Plan (1) Acute kidney injury: Code(s): N17.9 - Acute kidney failure, unspecified Status: Acute Assessment and Plan: * slow improvement * as noted by labs on admission (creatinine of 2.75mg/dl) * suspect multifactorial: * prerenal factors * possible overdiuresis * diuretic therapy (in general) * anemia/GI bleed * relative hypotension * other(?) * evaluation to date noted: * renal ultrasound limited by body habitus * urine electrolyte prerenal * urine eosinophils negative * CPK low * mild proteinuria * holding diuretics * on gentle IVFs * follow trend of repeat labs and UOP (2) Stage 3b chronic kidney disease: Code(s): N18.32 - Chronic kidney disease, stage 3b Status: Chronic Assessment and Plan: * baseline creatinine runs ~ 1.7 - 2.3mg/dl in the last year or so * however, has been as low as 1.6mg/dl and as high as 2.7mg/dl in association with acute hospitalizations * this causes him to fluctuate between CKD stage 3b and stage 4 * secondary to hypertensive nephrosclerosis, vascular disease, as well as the necessity of chronic diuretic therapy to maintain his volume status and age- related change * 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 for JENA on CKD and volume/fluid overload unresponsive to diuretic therapy (3) GI (gastrointestinal bleed): Code(s): K92.2 - Gastrointestinal hemorrhage, unspecified Status: Acute Assessment and Plan: * as noted by history of bloody stools with LLQ abdominal pain + rectal pain * guaiac positive in ER * CT imaging with fecal stasis and inflammation consistent with proctitis * GI recommendations noted - plan for EGD/colonoscopy today * follow trend of H/H (4) Azotemia: Code(s): R79.89 - Other specified abnormal findings of blood chemistry Status: Acute Assessment and Plan: * improving * presumably secondary to GI bleed * however, aggressive diuretic therapy likely playing a role * follow trend of BUN (5) CHF (congestive heart failure): Qualifiers: Heart failure chronicity: chronic Heart failure type: diastolic Q ualified Code(s): I50.32 - Chronic diastolic (congestive) heart failure Code(s): I50.9 - Heart failure, unspecified Status: Chronic Assessment and Plan: * chronic issue (diastolic dysfunction) * appears compensated at this time * diuretics on hold due to soft BP and #1 * follow volume status closely (6) Atrial fibrillation: Qualifiers: Atrial fibrillation type: longstanding persistent Qualified Code(s): I 48.11 - Longstanding persistent atrial fibrillation Code(s): I48.91 - Unspecified atrial fibrillation Status: Chronic Assessment and Plan: * rate control strategy * anticoagulation on hold (due to #3) (7) Essential (primary) hypertension: Code(s): I10 - Essential (primary) hypertension Status: Chronic Assessment and Plan: * reasonable control * BP medications with parameters * follow trend of hemodynamics (8) AMELIA (obstructive sleep apnea): Code(s): G47.33 - Obstructive sleep apnea (adult) (pediatric) Status: Chronic Assessment and Plan: * continue CPAP at night and with rest Will continue to follow. L Subjective Date/time seen: 09/18/24 11:11 Interval history: Follow-up acute kidney injury/acute renal failure on chronic kidney disease. EGD/colonoscopy re-scheduled for later this afternoon as bowel prep prior to yesterday was inadequate; still with on/off abdominal and rectal pain; no other issues/events overnight or earlier this morning; renal function/creatinine continues to improve. Exam 2 Narrative: General: Large WD/WN male in NAD Heart: normal S1 and S2; no rub Lungs: clear but decreased at bases Abdomen: soft, nontender, nondistended, positive bowel sounds Extremities: no cyanosis or clubbing; s/p right BKA Skin: chronic changes noted in LLEs noted Objective Data Vital Signs Vital Signs: Vital Signs Temp Pulse Resp BP Pulse Ox O2 Del Method O2 Flow Rate 09/18/24 10:46 97.6 F 70 15 132/57 L 100 Room Air 09/18/24 05:00 74 96 CPAP 09/18/24 04:54 96.6 F L 66 12 116/60 100 09/18/24 01:05 75 97 CPAP 09/17/24 21:30 85 09/17/24 21:05 96.6 F L 76 18 118/60 100 09/17/24 20:38 71 94 CPAP 09/17/24 20:00 Room Air Intake/Output Intake/Output: Intake & Output 09/15/24 09/16/24 09/17/24 09/18/24 23:59 23:59 23:59 23:59 Intake Total 1000 1508 3170 1353.3 Output Total 1100 1450 1650 Balance 6666 595 7129 -296.7 Meds/Results Medications: Active Medications Generic Name Dose Route Start Last Admin Trade Name Freq PRN Reason Stop Dose Admin Acetaminophen 1,000 mg 09/15/24 18:59 09/16/24 21:27 Acetaminophen 500 Mg Tablet PO 1,000 mg Q6H PRN Administration Mild Pain (1-3) or Fever Hydrocodone Bitart/Acetaminophen 1 tab 09/16/24 16:50 09/17/24 15:46 Hydrocodone/Acetaminophen (*Crx) 5-325 Mg Tablet PO 1 tab Q6H PRN Administration Pain Rated 4-6 Dicyclomine HCl 20 mg 09/15/24 18:59 09/17/24 21:30 Dicyclomine Hcl 10 Mg Capsule PO 20 mg QID PRN Administration Abdominal Cramping Docusate Sodium 100 mg 09/15/24 21:15 09/17/24 08:33 Docusate Sodium 100 Mg Capsule PO 100 mg Q12HR PRN Administration constipation Famotidine 20 mg 09/15/24 21:15 09/18/24 13:50 Famotidine 20 Mg Tablet PO Not Given Q12HR ANGELA Fentanyl Citrate 25 mcg 09/15/24 18:59 09/16/24 15:55 Fentanyl Citrate Inj (*Crx) 100 Mcg/2 Ml Vial IV PUSH 25 mcg Q4H PRN Administration Pain Rated 7-10 Fluticasone Propionate 1 spray 09/16/24 09:00 09/18/24 13:50 Fluticasone Propionate 0.05% Na Spr 16 Gm Btl (*Bkc) NASAL Not Given DAILY ANGELA Sodium Chloride 1,000 mls @ 50 mls/hr 09/16/24 14:30 09/18/24 01:07 Normal Saline Iv IV CONT 50 mls/hr .Q20H ANGELA Administration Metronidazole 500 mg in 100 mls @ 100 mls/hr 09/17/24 16:00 09/18/24 16:10 Flagyl 500 Mg/Iso Soln 100 Ml IVPB 100 mls/hr Q8H ANGELA Administration Ceftriaxone Sodium 1 gm in 50 mls @ 100 mls/hr 09/17/24 15:00 09/18/24 15:36 Rocephin 1 Gm/Ns 50 Ml IVPB 100 mls/hr Q24H ANGELA Administration Lactated Ringer's 1,000 mls @ 150 mls/hr 09/18/24 11:55 09/18/24 14:28 Lr - Lactated Ringers Iv IV CONT Infused .Q6H40M ANGELA Infusion Levothyroxine Sodium 200 mcg 09/16/24 06:30 09/18/24 13:50 Levothyroxine Sodium 100 Mcg Tablet PO Not Given DAILY@0630 ANGELA Loratadine 10 mg 09/15/24 21:12 Loratadine 10 Mg Tablet PO DAILY PRN allergy symptoms Metoprolol Tartrate 50 mg 09/16/24 09:00 09/18/24 13:50 Metoprolol Tartrate 50 Mg Tab PO Not Given Q12HR ANGELA Minoxidil 2.5 mg 09/16/24 09:00 09/18/24 13:50 Minoxidil 2.5 Mg Tablet PO Not Given DAILY [facility] Morphine Sulfate 2 mg 09/15/24 19:00 09/18/24 04:15 Morphine Sulfate (*Crx) 2 Mg/Ml Inj IV PUSH 2 mg Q4H PRN Administration Pain Rated 4-6 Morphine Sulfate 2 mg 09/17/24 15:02 09/17/24 21:30 Morphine Sulfate (*Crx) 2 Mg/Ml Inj IV PUSH 2 mg Q4H PRN Administration Pain Rated 7-10 Multi-Ingred Cream/Lotion/Oil/Oint 1 applic 09/16/24 09:00 09/18/24 17:27 Eucerin Cream 120 Gm Jar TOPICAL Not Given BID [facility] Ondansetron HCl 4 mg 09/15/24 17:08 09/16/24 09:00 Ondansetron Inj 4 Mg/2 Ml Vial IV PUSH 4 mg Q4H PRN Administration Nausea Pantoprazole Sodium 40 mg 09/16/24 09:00 09/18/24 10:08 Pantoprazole Sodium Iv 40 Mg Vial IV PUSH 40 mg QAM ANGELA Administration Polyethylene Glycol 17 gm 09/15/24 21:12 09/16/24 12:59 Polyethylene Glycol 3350 17 Gm Powd.Pack PO 17 gm DAILY PRN Administration Constipation Spironolactone 25 mg 09/16/24 09:00 09/18/24 13:50 Spironolactone 25 Mg Tablet PO Not Given DAILY [facility] Tamsulosin HCl 0.4 mg 09/16/24 09:00 09/18/24 13:51 Tamsulosin Hcl 0.4 Mg Capsule PO Not Given [facility] Radiology Results: ITS Impressions Abdomen/Pelvis CT 09/15/24 16:02 IMPRESSION: 1. No evidence of appendicitis, diverticulitis or intestinal obstruction. 2. Hepatomegaly. 3. Hypodensity in the liver which may be a cyst. Unchanged from previous examination. 4. Tiny calcific area in the right kidney upper pole unchanged from previous examination. 5. Constipation with proctitis. Renal Ultrasound 09/17/24 09:01 IMPRESSION: Partially visualized right kidney with inability to have proper window for vascularity assessment. Possible mild left hydronephrosis. Follow-up advised. Labs Labs: Laboratory Tests 09/18/24 04:52 09/18/24 04:52 Calcium 8.9 Phosphorus 3.5 Magnesium 4.2 H Albumin 3.9
[2024-09-18 12:27] LABS: Glucose Point of Care 96 mg/dl (65-105)
[2024-09-18] MEDS: LACTATED RINGERS 1,000 ML 150 ML IV CONT (12:44)
--- NOTE | 2024-09-18 13:03 | WPDANESEPPF ---
Anes - Initial Pre Proc Eval Procedure: Operation Date: 09/18/24 13:00 Proposed Procedures p Esophagogastroduodenoscopy - Darrell Hernandez MD s Flexible Sigmoidoscopy - Darrell Hernandez MD Date/Time: 09/18/24 13:03 Surgeon: Sylvain Jordan MD Pre Op Diagnosis: GI Bleed/Abdominal Pain Patient Data Age: 74 Gender: M Height: 1.85 m Weight: 136.5 kg Last Vital Signs Temp 97.6 F 09/18/24 12:46 Pulse 70 09/18/24 12:46 Resp 15 09/18/24 12:46 BP 132/57 L 09/18/24 12:46 Pulse Ox 100 09/18/24 12:46 O2 Del Method Room Air 09/18/24 12:46 O2 Flow Rate 4 09/15/24 21:11 Allergies Allergy/AdvReac Type Severity Reaction Status Date / Time Sulfa (Sulfonamide Allergy Mild Rash Verified 09/18/24 12:36 Antibiotics) Penicillins Allergy Unknown SWELLING Verified 09/18/24 12:36 codeine AdvReac Mild N/V Verified 09/18/24 12:36 hydrocodone AdvReac Mild N/V Verified 09/18/24 12:36 oxycodone (From OxyContin) AdvReac Mild Nausea Verified 09/18/24 12:36 tramadol AdvReac Mild Nausea Verified 09/18/24 12:36 Home Medications ?Medication ?Instructions ?Recorded ?Confirmed ?Type loratadine 10 mg tablet (Claritin) 10 mg PO DAILY PRN allergy symptoms 07/12/20 09/15/24 History polyethylene glycol 3350 17 17 g PO DAILY PRN Constipation 06/02/21 09/15/24 History gram/dose oral powder (Miralax) apixaban 5 mg tablet (Eliquis) 5 mg PO Q12HR #180 tabs 01/19/22 09/15/24 Rx metoprolol tartrate 50 mg tablet 50 mg PO Q12HR #180 tabs 01/19/22 09/15/24 Rx acetazolamide 250 mg tablet 250 mg PO DAILY 11/19/22 09/15/24 History fluticasone propionate 50 1 spray intranasal DAILY Congestion 11/19/22 09/15/24 History mcg/actuation nasal spray,suspension (Flonase Allergy Relief) lanolin alcohols-mineral 1 applic topical BID #113 grams 03/25/23 09/15/24 Rx oil-w.petrolatum-ceresin topical cream (Minerin Creme topical) spironolactone 25 mg tablet 25 mg PO DAILY #30 tabs 04/06/23 09/15/24 Rx calcitriol 0.25 mcg capsule 0.25 mcg PO 3XW #36 caps 10/30/23 09/15/24 Rx docusate sodium 100 mg capsule 100 mg PO Q12H PRN constipation 05/13/24 09/15/24 History gabapentin 300 mg capsule 300 mg PO TID #270 caps 05/14/24 09/15/24 Rx bumetanide 1 mg tablet See Rx Instructions .Route 06/29/24 09/15/24 Rx .COMPLEX #270 tabs allopurinol 100 mg tablet 100 mg PO DAILY #10 tabs 08/04/24 09/15/24 Rx famotidine 20 mg tablet 20 mg PO BID #180 tabs 08/04/24 09/15/24 Rx levothyroxine 200 mcg tablet 200 mcg PO DAILY #90 tabs 08/04/24 09/15/24 Rx metolazone 5 mg tablet 5 mg PO DAILY 08/04/24 09/15/24 History minoxidil 2.5 mg tablet 2.5 mg PO DAILY 08/04/24 09/15/24 History potassium chloride 10 mEq 10 meq PO DAILY 08/04/24 09/15/24 History capsule,extended release tamsulosin 0.4 mg capsule 0.4 mg PO QAM #90 caps 08/04/24 09/15/24 Rx acetaminophen 500 mg capsule 500 mg PO Q6H PRN fever or pain 09/15/24 09/15/24 History bisacodyl 10 mg rectal suppository 10 mg RECTAL DAILY PRN constipation 09/15/24 09/15/24 History (Dulcolax (bisacodyl)) scopolamine base 1 mg over 3 days 1 patch transdermal Q72H 09/15/24 09/15/24 History transdermal patch Laboratory Tests 09/18/24 09/18/24 04:52 12:25 WBC 12.1 H K/mm3 (4.5-10.0) RBC 3.52 L M/mm3 (4.6-6.20) Hgb 8.9 L g/dL (14.0-18.0) Hct 29.6 L % (42.0-52.0) MCV 84.1 fl (80-100) MCH 25.3 L pg (26-34) MCHC 30.1 L g/dl (32-36) RDW 15.2 H % (11.5-14.5) Plt Count 436 H k/mm3 (150-375) MPV 10.3 fl (7.4-10.4) Immature Gran % (Auto) 0.7 H % (0-0.5) Neut % (Auto) 86.0 H % (45.5-73.1) Lymph % (Auto) 3.4 L % (18.3-44.2) [place] % (Auto) 6.1 % (2.6-8.5) Eos % (Auto) 3.2 % (0-4.4) Baso % (Auto) 0.6 % (0.2-1.2) Lymph # (Auto) 0.41 L K/mm3 (0.9-3.2) [place] # (Auto) 0.7 H K/mm3 (0.1-0.6) Eos # (Auto) 0.4 H K/mm3 (0-0.3) Baso # (Auto) 0.1 K/mm3 (0.0-0.1) Abs Immat Gran (auto) 0.08 H K/mm3 (0.00-0.031) Absolute Neuts (auto) 10.4 H K/mm3 (1.3-6.7) Absolute Nucleated RBC 0.000 K/mm3 (0.0-0.012) Band Neutrophils % Not Reportable Nucleated RBC % 0.0 % (0.0-0.2) Platelet Estimate Increased (Adequate) Hypochromasia 1+ Tear Drop Cells 1+ Ovalocytes 1+ Schistocytes None seen Sodium 134 L mmol/L (137-145) Potassium 3.8 mmol/L (3.4-5.0) Chloride 97 L mmol/L (98-107) Carbon Dioxide 26 mmol/L (22-30) Anion Gap 11 mmol/L (4-12) BUN 81 H D mg/dL (9-20) Creatinine 2.18 H mg/dL (0.7-1.3) Estim Creat Clear Calc 39 ml/min Estimated GFR 30 L (59 - ) Glucose 111 H mg/dL (65-110) POC Capillary Glucose 96 mg/dl (65-105) Calcium 8.9 mg/dL (8.4-10.2) Phosphorus 3.5 mg/dL (2.5-4.5) Magnesium 4.2 H mg/dL (1.6-2.3) Albumin 3.9 g/dL (3.5-5.1) Patient hx anesthesia problems: none Family hx anesthesia problems: none Results Review: All pre-operative results and documents have been reviewed as part of the pre-operative evaluation. [facility] Past Medical History Medical History (Updated 09/17/24 @ 17:05 by Darrell Hernandez MD) Fecal impaction Proctitis Hyponatremia Self-care deficit Peripheral vascular disease Morbid obesity with body mass index (BMI) of 40.0 or higher Neuropathic pain Gout Sepsis Chronic acquired lymphedema Chronic anemia Obstructive sleep apnea Atrial fibrillation Lymphedema of both lower extremities Environmental allergies Ocular rosacea Rosacea Chronic low back pain Chronic venous insufficiency GERD without esophagitis Chronic congestive heart failure Echocardiogram in May 2021 was technically difficult and showed normal LV systolic function with an EF of 60 to 65%, severely enlarged RV chamber with moderate to severely reduced RV systolic function, severe biatrial enlargement, and moderate pulmonary hypertension. Dyslipidemia Essential (primary) hypertension Peripheral polyneuropathy Hypothyroidism Surgical History Surgical History History of carpal tunnel release History of thoracic surgery Pericardial effusion s/p pericardial window thought secondary to minoxidil, in 2010 at [facility]. H/O eye surgery (~2005) [phone] [facility] History of foot surgery Left Foot History of cholecystectomy (2008) History of rotator cuff surgery Bilateral. History of discectomy (2012) Family History Family History Father Cardiovascular disease Grandparent Cancer Mother COPD (chronic obstructive pulmonary disease) Social History Social History Social History: Surrogate medical decision maker: Shyla Hurst, daughter. Code status: Full code. Caffeine-decalf coffee, diet soda Smoking packs per day: 2 Smoking cigarettes per day: 40.0 Years smoked: 20 Smoking pack-years: 40.00 Smoking status: Former smoker Second hand tobacco smoke exposure: No Additional smoking assessment comments: 1978 Alcohol intake: never Alcohol use details: One beer daily. Substance use: never Substance use type: does not use Do You Feel Safe in your Home?: Yes Lack of Transportation: No Lack of Food: Never True Current Housing: I Have Housing Concerned About Future Housing: No Difficulty Paying Gas/Electric Bills: No Difficulty Paying for Meds: No Currently Unemployed: No Education: Associate Degree Difficulty w/ Childcare or Family Care: No Living arrangements: alone Additional living arrangements comments: Lives in own home in [place]. Uses a motorized scooter and transfers with slide board. Occupation/Education: retired Additional occupation/education comments: Retired. 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 Spiritual care concerns: No Anes - Eval Final PreProcedure Day of Procedure 09/18/24 13:03 Patient weight: morbidly obese Heart: regular rate and rhythm Lungs: clear to auscultation Airway: Mallampati scale class II Neurological: alert and oriented Last oral intake: >/= 8 hours ASA classification: IV Emergent: no Anesthetic plan: proceed Anesthesia type and monitoring: general GIVS and standard monitoring Results Review: All pre-operative results and documents have been reviewed as part of the pre-operative evaluation. Informed Consent: The patient's anesthetic plan and its attendant risks and benefits were discussed with the patient/family/POA. Questions were solicited and answers provided to the satisfaction of the patient/family/POA.
--- NOTE | 2024-09-18 13:45 | SUR.OPER ---
EGD end 1342 COLONOSCOPY start 1342
--- NOTE | 2024-09-18 14:00 | S_PTH ---
PATIENT: Irwin Cyr Jr. LOC: [id number] U#:[id number] AGE/SX: 74/M ROOM: 257 RE09/16/[address]: Kathleen Manriquez MD : 1950 BED: 01 DIS: 09/20/2024 SPEC #: [id number] RECD: 09/21/24 07:56 STATUS: CHANELLE REQ #: [id number] YOSELYN: 09/18/24 14:[address]: Darrell Hernandez DEPT: [facility] Surgical RECD BY: Adeline Tuttle ENTERED: 09/21/24 07:57 SP TYPE: Surgical OTHR DR: DEA Jacobson MD Sriraj T. Kanungo, MD Tissues: A - Gastric Biopsy B - Colon Biopsy C - Colon Polypectomy Procedures: Hematoxylin and Eosin Stain Gross and Microscopic Level 4 H.Pylori
--- NOTE | 2024-09-18 14:23 | PCDIET ---
Patient NPO/clear liquids x 4 days. Patient having EGD at this time. Plans for advancing diet as tolerated. Will monitor for diet order advancement.
[2024-09-18] MEDS: metroNIDAZOLE 500 MG/ISO 100ML 500 MG/100 ML BAG 100 MG IVPB ×2 (16:10)
[2024-09-18] MEDS: FAMOTIDINE 20 MG TABLET PO (20:46)
[2024-09-18] MEDS: METOPROLOL TARTRATE 50 MG TAB PO (20:46)
[2024-09-19] MEDS: metroNIDAZOLE 500 MG/ISO 100ML 500 MG/100 ML BAG 100 MG IVPB ×4 (00:02→22:52)
[2024-09-19] MEDS: LEVOTHYROXINE SODIUM 100 MCG TABLET 200 MCG PO (05:53)
[2024-09-19 05:56] LABS: Basophils Absolute Auto 0.1 K/mm3 (0.0-0.1); Basophils Percent Auto 0.5 % (0.2-1.2); Eosinophils Absolute Auto 0.2 K/mm3 (0-0.3); Hemoglobin 8.6 g/dL (14.0-18.0); Immature Granulocyte Absolute 0.09 K/mm3 (0.00-0.031); Immature Granulocyte Percent A 0.8 % (0-0.5); Lymphocytes Absolute Auto 0.37 K/mm3 (0.9-3.2); Lymphocytes Percent Auto 3.3 % (18.3-44.2); Mean Corpuscular HGB Conc 29.7 g/dl (32-36); Mean Corpuscular Hemoglobin 25.1 pg (26-34); Mean Corpuscular Volume 84.5 fl (80-100); Monocytes Absolute Auto 0.6 K/mm3 (0.1-0.6); Neutrophils Absolute Auto 9.9 K/mm3 (1.3-6.7); Neutrophils Percent Auto 88.4 % (45.5-73.1); Platelet Count Result 381 k/mm3 (150-375); Red Blood Count 3.43 M/mm3 (4.6-6.20); Red Cell Distribution Width 15.4 % (11.5-14.5); White Blood Count 11.2 K/mm3 (4.5-10.0)
[2024-09-19 06:12] LABS: Alanine Aminotransferase 12 U/L (6-50); Albumin Level 3.9 g/dL (3.5-5.1); Alkaline Phosphatase 74 U/L (38-126); Anion Gap 11 mmol/L (4-12); Aspartate Amino Transferase 19 U/L (17-59); Bilirubin,Total 0.3 mg/dL (0.2-1.3); Blood Urea Nitrogen 59 mg/dL (9-20); Calcium 8.8 mg/dL (8.4-10.2); Carbon Dioxide 24 mmol/L (22-30); Chloride 103 mmol/L (98-107); Estimated CRCL calculation 48 ml/min; Estimated Glomerular Filt Rate 38; Glucose 101 mg/dL (65-110); Phosphorus 2.9 mg/dL (2.5-4.5); Potassium 3.2 mmol/L (3.4-5.0); Sodium 138 mmol/L (137-145); Total Protein 6.7 g/dL (6.3-8.2)
[2024-09-19 06:31] LABS: Anisocytosis 1+; Hypochromasia 2+; Ovalocytes 1+; Platelet Estimate Slightly Increased (Adequate); Schistocytes None Seen; Tear Drop Cells 1+
[2024-09-19 07:02] VITALS: BP 126/66; PULSE 72; RESP 16; TEMP 36.6; O2SAT 99
--- NOTE | 2024-09-19 07:45 | PM.IMPN ---
Progress Note: A&P Assessment and Plan (1) GI (gastrointestinal bleed): Code(s): K92.2 - Gastrointestinal hemorrhage, unspecified Status: Acute Assessment and Plan: -Recent black and bloody stools with significantly elevated BUN -Guaiac positive in ER -LLQ abdominal pain and rectal pain -CT imaging with fecal stasis and inflammation consistent with proctitis -GI consulted 09/18/2024 Hgb is stable, no acute bleeding, will continue with current treatment and monitor closely. 09/19/2024 Hgb is stable, no acute bleeding, will continue with current treatment and monitor closely. Possible dc in am (2) Chronic anticoagulation: Code(s): Z79.01 - MCFP (current) use of anticoagulants Status: Acute Assessment and Plan: -On Eliquis 5 mg BID for atrial fibrillation -Hold anticoagulation for now (3) Hypokalemia: Code(s): E87.6 - Hypokalemia Status: Acute Assessment and Plan: Replaced (4) Hyponatremia: Code(s): E87.1 - Hypo-osmolality and hyponatremia Status: Chronic Assessment and Plan: -Chronic hyponatremia normally 130-135, was 128 on admission Continue to monitor (5) Benign hypertension with chronic kidney disease: Code(s): I12.9 - Hypertensive chronic kidney disease with stage 1 through stage 4 chronic kidney disease, or unspecified chronic kidney disease Status: Chronic Assessment and Plan: Stable, monitor closely (6) Chronic kidney disease, stage IV (severe): Code(s): N18.4 - Chronic kidney disease, stage 4 (severe) Status: Chronic Assessment and Plan: -JENA on CKD noted on admit -Most of his home medications are nephrotoxic -continue spironolactone, hold Bumex and acetazolamide as he seems over-diuresed -Consider restarting meds as tolerated Nephrology on board (7) History of chronic CHF: Code(s): Z86.79 - Personal history of other diseases of the circulatory system Status: Chronic Assessment and Plan: -No dyspnea or pulmonary edema noted on admit -Watch for fluid overload with diuretics on hold (8) Venous stasis ulcer of right foot: Code(s): I83.015 - Varicose veins of right lower extremity with ulcer other part of foot Status: Acute Assessment and Plan: 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 Reportedly told at most recent visit on XX that there were no further interventions to increased blood flow to his affected extremity as the disease is below the knee. (10) CHF (congestive heart failure): Qualifiers: Heart failure chronicity: chronic Heart failure type: diastolic Qualified Code(s): I50.32 - Chronic diastolic (congestive) heart failure Code(s): I50.9 - Heart failure, unspecified Status: Chronic Assessment and Plan: - echo, previous: Estimated EF 65-70%, grade 1 diastolic dysfunction. Technically difficult echo. See report for details. - continue home medications: Bumex (adjusting administration times to help patient get improved sleep), metolazone, spironolactone. Hold Diamox, contraindicated in CKD stage 4. - monitor I&Os daily weights (11) Atrial fibrillation: Qualifiers: Atrial fibrillation type: longstanding persistent Qualified Code(s): I48.11 - Longstanding persistent atrial fibrillation Code(s): I48.91 - Unspecified atrial fibrillation Status: Chronic Assessment and Plan: - continue home medications: Eliquis and Metoprolol. - Eliquis is on hold currently due to GI bleed (12) Chronic anemia: Code(s): D64.9 - Anemia, unspecified Status: Acute Assessment and Plan: At baseline, stable. - transfuse if <7. - monitor (13) CKD (chronic kidney disease) stage 3, GFR 30-59 ml/min: Qualifiers: Chronic kidney disease stage 3 subtype: stage 3b (GFR 30-44) Qualified Code(s): N18.32 - Chronic kidney disease, stage 3b Code(s): N18.3 - Chronic kidney disease, stage 3 (moderate) Status: Acute Assessment and Plan: - trend renal function - trend electrolytes, correct as needed (14) Essential (primary) hypertension: Code(s): I10 - Essential (primary) hypertension Status: Chronic Assessment and Plan: - continue home medications: Metoprolol - monitor (15) AMELIA (obstructive sleep apnea): Code(s): G47.33 - Obstructive sleep apnea (adult) (pediatric) Status: Acute Assessment and Plan: - continue home CPAP Plan Proctitis will place on empiric antibiotics he has tolerated ceftriaxone/cefepime in the past. QTC is prolonged so will avoid Cipro Subjective Date/time seen: 09/19/24 07:45 Interval history: Patient was seen during the morning rounds Feeling ok, no sob or chest pain. No nausea or vomiting Review of Systems Review of Systems: All systems reviewed & are unremarkable except as noted in HPI and below Exam Narrative: GENERAL: Well-appearing, well-nourished, and in no acute distress. HEENT: Normocephalic, atraumatic, PERRL, EOMI CHEST: Clear to auscultation. No respiratory distress. HEART: Regular rate and rhythm. No murmur heard. ABDOMEN: Soft, tenderness to palpation left lower quadrant, no guarding or rebound. Abdomen is nondistended, normal active bowel sounds. EXTREMITIES: Normal range of motion below-knee amputation right lower extremity. No edema. SKIN: Warm, dry, no rash. NEURO: No focal deficits. Alert and oriented x3. Const: General: no acute distress and uncomfortable Resp: Effort & Inspection: normal respiratory effort Auscultation: clear to auscultation bilaterally Other: Speaking in complete sentences. Cardio: Rate: regular rate Rhythm: regular rhythm GI: Auscultation: normal bowel sounds Skin: Other: RLE erythema improving, ulcer on dorsal foot between the first and second digit extending to the metatarsal region with scant purulence drainage and a soft overlying necrotic eschar. Chronic lymphedema with chronic venous stasis skin changes and dermatitis to the right lower leg. Neuro: Speech: normal speech Extrem: Other: Bilateral lower extremities with chronic lymphedema and venous stasis dermatitis. Erythema improving to right lower extremity. Psych: Mental Status: mental status grossly normal Affect: normal affect Objective Data Vital Signs Vital Signs: Vital Signs - 24 hr 09/18/24 10:49 09/18/24 12:46 09/18/24 14:00 Temperature 36.4 C Pulse Rate 70 62 Respiratory Rate 15 15 Blood Pressure 132/57 L 112/66 Pulse Oximetry 100 97 Oxygen Delivery Room Air Room Air Nasal Cannula Oxygen Flow Rate 4 09/18/24 14:10 09/18/24 14:20 09/18/24 20:00 Temperature Pulse Rate 71 65 Respiratory Rate 17 17 Blood Pressure 122/62 131/51 L Pulse Oximetry 98 99 Oxygen Delivery Nasal Cannula Room Air Room Air Oxygen Flow Rate 4 09/18/24 20:07 09/18/24 20:46 09/18/24 21:34 Temperature 36.4 C L Pulse Rate 78 74 Respiratory Rate 12 Blood Pressure 137/64 Pulse Oximetry 99 100 Oxygen Delivery CPAP Oxygen Flow Rate 09/19/24 01:57 09/19/24 07:02 Temperature 36.6 C Pulse Rate 72 Respiratory Rate 16 Blood Pressure 126/66 Pulse Oximetry 99 Oxygen Delivery CPAP Oxygen Flow Rate Intake/Output Intake/Output: Intake & Output 09/16/24 09/17/24 09/18/24 09/19/24 23:59 23:59 23:59 23:59 Intake Total 1508 3170 1453.3 250 Output Total 1100 1450 1650 800 Balance 408 1720 -196.7 -550 Meds/Results Medications: Active Medications Generic Name Dose Route Start Last Admin Trade Name Freq PRN Reason Stop Dose Admin Acetaminophen 1,000 mg 09/15/24 18:59 09/16/24 21:27 Acetaminophen 500 Mg Tablet PO 1,000 mg Q6H PRN Administration Mild Pain (1-3) or Fever Hydrocodone Bitart/Acetaminophen 1 tab 09/16/24 16:50 09/17/24 15:46 Hydrocodone/Acetaminophen (*Crx) 5-325 Mg Tablet PO 1 tab Q6H PRN Administration Pain Rated 4-6 Dicyclomine HCl 20 mg 09/15/24 18:59 09/17/24 21:30 Dicyclomine Hcl 10 Mg Capsule PO 20 mg QID PRN Administration Abdominal Cramping Docusate Sodium 100 mg 09/15/24 21:15 09/17/24 08:33 Docusate Sodium 100 Mg Capsule PO 100 mg Q12HR PRN Administration constipation Famotidine 20 mg 09/15/24 21:15 09/18/24 20:46 Famotidine 20 Mg Tablet PO 20 mg Q12HR ANGELA Administration Fentanyl Citrate 25 mcg 09/15/24 18:59 09/16/24 15:55 Fentanyl Citrate Inj (*Crx) 100 Mcg/2 Ml Vial IV PUSH 25 mcg Q4H PRN Administration Pain Rated 7-10 Fluticasone Propionate 1 spray 09/16/24 09:00 09/18/24 13:50 Fluticasone Propionate 0.05% Na Spr 16 Gm Btl (*Bkc) NASAL Not Given DAILY [facility] Metronidazole 500 mg in 100 mls @ 100 mls/hr 09/17/24 16:00 09/19/24 00:02 Flagyl 500 Mg/Iso Soln 100 Ml IVPB 100 mls/hr Q8H ANGELA Administration Ceftriaxone Sodium 1 gm in 50 mls @ 100 mls/hr 09/17/24 15:00 09/18/24 15:36 Rocephin 1 Gm/Ns 50 Ml IVPB 100 mls/hr Q24H ANGELA Administration Lactated Ringer's 1,000 mls @ 150 mls/hr 09/18/24 11:55 09/19/24 05:56 Lr - Lactated Ringers Iv IV CONT Not Given .Q6H40M [facility] Levothyroxine Sodium 200 mcg 09/16/24 06:30 09/19/24 05:53 Levothyroxine Sodium 100 Mcg Tablet PO 200 mcg DAILY@0630 [facility] Administration Loratadine 10 mg 09/15/24 21:12 Loratadine 10 Mg Tablet PO DAILY PRN allergy symptoms Metoprolol Tartrate 50 mg 09/16/24 09:00 09/18/24 20:46 Metoprolol Tartrate 50 Mg Tab PO 50 mg Q12HR [facility] Administration Minoxidil 2.5 mg 09/16/24 09:00 09/18/24 13:50 Minoxidil 2.5 Mg Tablet PO Not Given DAILY [facility] Morphine Sulfate 2 mg 09/15/24 19:00 09/18/24 04:15 Morphine Sulfate (*Crx) 2 Mg/Ml Inj IV PUSH 2 mg Q4H PRN Administration Pain Rated 4-6 Morphine Sulfate 2 mg 09/17/24 15:02 09/18/24 20:56 Morphine Sulfate (*Crx) 2 Mg/Ml Inj IV PUSH 2 mg Q4H PRN Administration Pain Rated 7-10 Multi-Ingred Cream/Lotion/Oil/Oint 1 applic 09/16/24 09:00 09/18/24 17:27 Eucerin Cream 120 Gm Jar TOPICAL Not Given BID [facility] Ondansetron HCl 4 mg 09/15/24 17:08 09/16/24 09:00 Ondansetron Inj 4 Mg/2 Ml Vial IV PUSH 4 mg Q4H PRN Administration Nausea Pantoprazole Sodium 40 mg 09/16/24 09:00 09/18/24 10:08 Pantoprazole Sodium Iv 40 Mg Vial IV PUSH 40 mg QAM ANGELA Administration Polyethylene Glycol 17 gm 09/15/24 21:12 09/16/24 12:59 Polyethylene Glycol 3350 17 Gm Powd.Pack PO 17 gm DAILY PRN Administration Constipation Spironolactone 25 mg 09/16/24 09:00 09/18/24 13:50 Spironolactone 25 Mg Tablet PO Not Given DAILY ANGELA Tamsulosin HCl 0.4 mg 09/16/24 09:00 09/18/24 13:51 Tamsulosin Hcl 0.4 Mg Capsule PO Not Given QAM [facility] Radiology Results: ITS Impressions Abdomen/Pelvis CT 09/15/24 16:02 IMPRESSION: 1. No evidence of appendicitis, diverticulitis or intestinal obstruction. 2. Hepatomegaly. 3. Hypodensity in the liver which may be a cyst. Unchanged from previous examination. 4. Tiny calcific area in the right kidney upper pole unchanged from previous examination. 5. Constipation with proctitis. Renal Ultrasound 09/17/24 09:01 IMPRESSION: Partially visualized right kidney with inability to have proper window for vascularity assessment. Possible mild left hydronephrosis. Follow-up advised. Labs Labs: Laboratory Results - last 24 hr 09/18/24 09/19/24 12:25 05:27 WBC 11.2 H RBC 3.43 L Hgb 8.6 L Hct 29.0 L MCV 84.5 MCH 25.1 L MCHC 29.7 L RDW 15.4 H Plt Count 381 H MPV 10.0 Immature Gran % (Auto) 0.8 H Neut % (Auto) 88.4 H Lymph % (Auto) 3.3 L [place] % (Auto) 5.0 Eos % (Auto) 2.0 Baso % (Auto) 0.5 Lymph # (Auto) 0.37 L [place] # (Auto) 0.6 Eos # (Auto) 0.2 Baso # (Auto) 0.1 Abs Immat Gran (auto) 0.09 H Absolute Neuts (auto) 9.9 H Absolute Nucleated RBC 0.000 Band Neutrophils % Not Reportable Nucleated RBC % 0.0 Platelet Estimate Slightly increased Hypochromasia 2+ Anisocytosis 1+ Tear Drop Cells 1+ Ovalocytes 1+ Schistocytes None seen Sodium 138 Potassium 3.2 L Chloride 103 Carbon Dioxide 24 Anion Gap 11 BUN 59 H D Creatinine 1.74 H Estim Creat Clear Calc 48 Estimated GFR 38 L Glucose 101 POC Capillary Glucose 96 Calcium 8.8 Phosphorus 2.9 Magnesium 4.0 H Total Bilirubin 0.3 AST 19 ALT 12 Alkaline Phosphatase 74 Total Protein 6.7 Albumin 3.9 Quality VTE Prophylaxis VTE prophylaxis: mechanical ordered
[2024-09-19 09:06] VITALS: PULSE 67
[2024-09-19] MEDS: METOPROLOL TARTRATE 50 MG TAB PO ×2 (09:06→21:37)
[2024-09-19] MEDS: TAMSULOSIN HCL 0.4 MG CAPSULE PO (09:06)
[2024-09-19] MEDS: minoxidiL 2.5 MG TABLET PO (09:06)
[2024-09-19] MEDS: FAMOTIDINE 20 MG TABLET PO ×2 (09:06→21:38)
[2024-09-19] MEDS: SPIRONOLACTONE 25 MG TABLET PO (09:06)
[2024-09-19] MEDS: FLUTICASONE PROPIONATE 0.05% NA SPR 16 GM BTL (*BKC) 1 SPRAY NASAL (09:07)
[2024-09-19] MEDS: EUCERIN CREAM 120 GM JAR 1 APPLIC TOPICAL ×2 (09:07→17:33)
[2024-09-19] MEDS: POTASSIUM CHLORIDE 20 MEQ ER TABLET 40 MEQ PO (09:10)
[2024-09-19] MEDS: PANTOPRAZOLE SODIUM IV 40 MG VIAL IV PUSH (09:10)
[2024-09-19] MEDS: HYDROcodone/acetaminophen (*CRX) 5-325 MG TABLET 1 TAB PO ×3 (09:13→21:38)
--- NOTE | 2024-09-19 11:41 | P.PNNP_ITS ---
Progress Note: A&P Assessment and Plan (1) Acute kidney injury: Code(s): N17.9 - Acute kidney failure, unspecified Status: Acute Assessment and Plan: * slow improvement if not resolved * as noted by labs on admission (creatinine of 2.75mg/dl) * suspect multifactorial: * prerenal factors * possible overdiuresis * diuretic therapy (in general) * anemia/GI bleed * relative hypotension * other(?) * evaluation to date noted: * renal ultrasound limited by body habitus * urine electrolyte prerenal * urine eosinophils negative * CPK low * mild proteinuria * holding diuretics -- probably okay to slowly restart * follow trend of repeat labs and UOP (2) Stage 3b chronic kidney disease: Code(s): N18.32 - Chronic kidney disease, stage 3b Status: Chronic Assessment and Plan: * baseline creatinine runs ~ 1.7 - 2.3mg/dl in the last year or so * however, has been as low as 1.6mg/dl and as high as 2.7mg/dl in association with acute hospitalizations * this causes him to fluctuate between CKD stage 3b and stage 4 * secondary to hypertensive nephrosclerosis, vascular disease, as well as the necessity of chronic diuretic therapy to maintain his volume status and age- related change * has required acute BULK CLERK/dialysis x 2 in the past for JENA on CKD and volume/fluid overload unresponsive to diuretic therapy (3) GI (gastrointestinal bleed): Code(s): K92.2 - Gastrointestinal hemorrhage, unspecified Status: Acute Assessment and Plan: * as noted by history of bloody stools with LLQ abdominal pain + rectal pain * guaiac positive in ER * CT imaging with fecal stasis and inflammation consistent with proctitis * GI recommendations noted - s/p EGD/colonoscopy today: * EGD: mild gastritis * sigmoidoscopy: fecal impaction with stercoral colitis/ulcers * follow trend of H/H (4) Azotemia: Code(s): R79.89 - Other specified abnormal findings of blood chemistry Status: Acute Assessment and Plan: * improving/resolved * presumably secondary to GI bleed * however, aggressive diuretic therapy likely playing a role * follow trend of BUN (5) CHF (congestive heart failure): Qualifiers: Heart failure chronicity: chronic Heart failure type: diastolic Q ualified Code(s): I50.32 - Chronic diastolic (congestive) heart failure Code(s): I50.9 - Heart failure, unspecified Status: Chronic Assessment and Plan: * chronic issue (diastolic dysfunction) * appears compensated at this time * diuretics on hold due to soft BP and #1 * follow volume status closely (6) Atrial fibrillation: Qualifiers: Atrial fibrillation type: longstanding persistent Qualified Code(s): I 48.11 - Longstanding persistent atrial fibrillation Code(s): I48.91 - Unspecified atrial fibrillation Status: Chronic Assessment and Plan: * rate control strategy * anticoagulation on hold (due to #3) (7) Essential (primary) hypertension: Code(s): I10 - Essential (primary) hypertension Status: Chronic Assessment and Plan: * reasonable control * BP medications with parameters * follow trend of hemodynamics (8) AMELIA (obstructive sleep apnea): Code(s): G47.33 - Obstructive sleep apnea (adult) (pediatric) Status: Chronic Assessment and Plan: * continue CPAP at night and with rest Will continue to follow. L Subjective Date/time seen: 09/19/24 11:41 Interval history: Follow-up acute kidney injury/acute renal failure on chronic kidney disease. Seems to be doing reasonably well; s/p EGD/sigmoidoscopy with results noted; H/H remains rellatively stable; pain control seems to be relatively stable; no other issues/events overniight or earlier this morning. Exam 2 Narrative: General: Large WD/WN male in NAD Heart: normal S1 and S2; no rub Lungs: clear but decreased at bases Abdomen: soft, nontender, nondistended, positive bowel sounds Extremities: no cyanosis or clubbing; s/p right BKA Skin: chronic changes noted in LLEs apparent Objective Data Vital Signs Vital Signs: Vital Signs Temp Pulse Resp BP Pulse Ox O2 Del Method 09/19/24 09:07 CPAP 09/19/24 09:06 67 09/19/24 07:02 98 F 72 16 126/66 99 09/19/24 01:57 CPAP 09/18/24 21:34 97.5 F L 74 12 137/64 100 09/18/24 20:46 78 09/18/24 20:07 99 CPAP 09/18/24 20:00 Room Air Intake/Output Intake/Output: Intake & Output 09/16/24 09/17/24 09/18/2425 23:59 23:59 23:59 23:59 Intake Total 1508 3170 1453.3 250 Output Total 1100 1450 1650 800 Balance 408 1720 -196.7 -550 Meds/Results Medications: Active Medications Generic Name Dose Route Start Last Admin Trade Name Freq PRN Reason Stop Dose Admin Acetaminophen 1,000 mg 09/15/24 18:59 09/16/24 21:27 Acetaminophen 500 Mg Tablet PO 1,000 mg Q6H PRN Administration Mild Pain (1-3) or Fever Hydrocodone Bitart/Acetaminophen 1 tab 09/16/24 16:50 09/17/24 15:46 Hydrocodone/Acetaminophen (*Crx) 5-325 Mg Tablet PO 1 tab Q6H PRN Administration Pain Rated 4-6 Dicyclomine HCl 20 mg 09/15/24 18:59 09/17/24 21:30 Dicyclomine Hcl 10 Mg Capsule PO 20 mg QID PRN Administration Abdominal Cramping Docusate Sodium 100 mg 09/15/24 21:15 09/17/24 08:33 Docusate Sodium 100 Mg Capsule PO 100 mg Q12HR PRN Administration constipation Famotidine 20 mg 09/15/24 21:15 09/18/24 20:46 Famotidine 20 Mg Tablet PO 20 mg Q12HR ANGELA Administration Fentanyl Citrate 25 mcg 09/15/24 18:59 09/16/24 15:55 Fentanyl Citrate Inj (*Crx) 100 Mcg/2 Ml Vial IV PUSH 25 mcg Q4H PRN Administration Pain Rated 7-10 Fluticasone Propionate 1 spray 09/16/24 09:00 09/18/24 13:50 Fluticasone Propionate 0.05% Na Spr 16 Gm Btl (*Bkc) NASAL Not Given DAILY ANGELA Metronidazole 500 mg in 100 mls @ 100 mls/hr 09/17/24 16:00 09/19/24 00:02 Flagyl 500 Mg/Iso Soln 100 Ml IVPB 100 mls/hr Q8H ANGELA Administration Ceftriaxone Sodium 1 gm in 50 mls @ 100 mls/hr 09/17/24 15:00 09/18/24 15:36 Rocephin 1 Gm/Ns 50 Ml IVPB 100 mls/hr Q24H AGNELA Administration Lactated Ringer's 1,000 mls @ 150 mls/hr 09/18/24 11:55 09/19/24 05:56 Lr - Lactated Ringers Iv IV CONT Not Given .Q6H40M ANGELA Levothyroxine Sodium 200 mcg 09/16/24 06:30 09/19/24 05:53 Levothyroxine Sodium 100 Mcg Tablet PO 200 mcg DAILY@0630 ANGELA Administration Loratadine 10 mg 09/15/24 21:12 Loratadine 10 Mg Tablet PO DAILY PRN allergy symptoms Metoprolol Tartrate 50 mg 09/16/24 09:00 09/18/24 20:46 Metoprolol Tartrate 50 Mg Tab PO 50 mg Q12HR ANGELA Administration Minoxidil 2.5 mg 09/16/24 09:00 09/18/24 13:50 Minoxidil 2.5 Mg Tablet PO Not Given DAILY ANGELA Morphine Sulfate 2 mg 09/15/24 19:00 09/18/24 04:15 Morphine Sulfate (*Crx) 2 Mg/Ml Inj IV PUSH 2 mg Q4H PRN Administration Pain Rated 4-6 Morphine Sulfate 2 mg 09/17/24 15:02 09/18/24 20:56 Morphine Sulfate (*Crx) 2 Mg/Ml Inj IV PUSH 2 mg Q4H PRN Administration Pain Rated 7-10 Multi-Ingred Cream/Lotion/Oil/Oint 1 applic 09/16/24 09:00 09/18/24 17:27 Eucerin Cream 120 Gm Jar TOPICAL Not Given BID ANGELA Ondansetron HCl 4 mg 09/15/24 17:08 09/16/24 09:00 Ondansetron Inj 4 Mg/2 Ml Vial IV PUSH 4 mg Q4H PRN Administration Nausea Pantoprazole Sodium 40 mg 09/16/24 09:00 09/18/24 10:08 Pantoprazole Sodium Iv 40 Mg Vial IV PUSH 40 mg QAM ANGELA Administration Polyethylene Glycol 17 gm 09/15/24 21:12 09/16/24 12:59 Polyethylene Glycol 3350 17 Gm Powd.Pack PO 17 gm DAILY PRN Administration Constipation Potassium Chloride 40 meq 09/19/24 07:44 Potassium Chloride 20 Meq Er Tablet PO 09/19/24 07:45 ONCE ONE Spironolactone 25 mg 09/16/24 09:00 09/18/24 13:50 Spironolactone 25 Mg Tablet PO Not Given DAILY [facility] Tamsulosin HCl 0.4 mg 09/16/24 09:00 09/18/24 13:51 Tamsulosin Hcl 0.4 Mg Capsule PO Not Given QAM [facility] Radiology Results: ITS Impressions Abdomen/Pelvis CT 09/15/24 16:02 IMPRESSION: 1. No evidence of appendicitis, diverticulitis or intestinal obstruction. 2. Hepatomegaly. 3. Hypodensity in the liver which may be a cyst. Unchanged from previous examination. 4. Tiny calcific area in the right kidney upper pole unchanged from previous examination. 5. Constipation with proctitis. Renal Ultrasound 09/17/24 09:01 IMPRESSION: Partially visualized right kidney with inability to have proper window for vascularity assessment. Possible mild left hydronephrosis. Follow-up advised. Labs Labs: Laboratory Tests 09/19/24 05:27 09/19/24 05:27 Calcium 8.8 Phosphorus 2.9 Magnesium 4.0 H Total Bilirubin 0.3 AST 19 ALT 12 Alkaline Phosphatase 74 Total Protein 6.7 Albumin 3.9
--- NOTE | 2024-09-19 11:54 | PCPTNOTE ---
attempted PT eval, pt laughed when PT informed pt of eval order, he declined PT eval, will follow
--- NOTE | 2024-09-19 14:16 | WPDGIPROGNO ---
Progress Note: A&P Assessment and Plan (1) GI (gastrointestinal bleed): Code(s): K92.2 - Gastrointestinal hemorrhage, unspecified Status: Acute Assessment and Plan: rectal bleeding is secondary to stercoral ulcers- large amount of impacted stool in rectum was removed yesterday with sigmoidoscopy, pending biopsies continue with bowel regimen to prevent similar episode no need to do full colonoscopy hold blood thinner for 5 days will follow as needed (2) Proctitis: Code(s): K62.89 - Other specified diseases of anus and rectum Status: Acute Assessment and Plan: ulcers from fecal impaction (3) Fecal impaction: Code(s): K56.41 - Fecal impaction Status: Acute (4) Acute on chronic kidney failure: Code(s): N17.9 - Acute kidney failure, unspecified; N18.9 - Chronic kidney disease, unspecified Status: Resolved Assessment and Plan: by child center assistant this also can contribute to anemia (5) Chronic anemia: Code(s): D64.9 - Anemia, unspecified Status: Acute (6) Stercoral ulcer of rectum: Code(s): K62.6 - Ulcer of anus and rectum Status: Acute (7) Chronic anticoagulation: Code(s): Z79.01 - intermediate project manager (current) use of anticoagulants Status: Acute (8) Chronic congestive heart failure: Qualifiers: Heart failure type: combined systolic and diastolic Qualified Code(s): I50.42 - Chronic combined systolic (congestive) and diastolic (congestive) heart failure Code(s): I50.9 - Heart failure, unspecified Status: Chronic (9) Hx of right BKA: Code(s): Z89.511 - Acquired absence of right leg below knee Status: Acute Subjective Date/time seen: 09/19/24 14:16 Interval history: sigmoidoscopy yesterday with large amount of fecal impaction that was removed digitally, noted stercoral ulcers no changes today Review of Systems Review of Systems: All systems reviewed & are unremarkable except as noted in HPI and below Exam Const: General: comfortable and no acute distress HENMT: Face/Nose/Sinus: Normal nares present Eyes: General: appearance normal, both eyes and all related structures Neck: Neck: supple Resp: Auscultation: clear to auscultation bilaterally Cardio: Rate: regular rate Rhythm: regular rhythm GI: GI Palp: Yes Soft to palpation and No Guarding due to palpation present (GI) Auscultation: normal bowel sounds Other: less bloated Skin: General skin exam: normal color Neuro: Speech: normal speech Extrem: Other: Rt BKA Psych: Mental Status: mental status grossly normal Objective Data Vital Signs Vital Signs: Vital Signs - 24 hr 09/18/24 14:20 09/18/24 20:00 09/18/24 20:07 Temperature Pulse Rate 65 Respiratory Rate 17 Blood Pressure 131/51 L Pulse Oximetry 99 99 Oxygen Delivery Room Air Room Air CPAP 09/18/24 20:46 09/18/24 21:34 09/19/24 01:57 Temperature 97.5 F L Pulse Rate 78 74 Respiratory Rate 12 Blood Pressure 137/64 Pulse Oximetry 100 Oxygen Delivery CPAP 09/19/24 07:02 09/19/24 09:06 09/19/24 09:07 Temperature 98 F Pulse Rate 72 67 Respiratory Rate 16 Blood Pressure 126/66 Pulse Oximetry 99 Oxygen Delivery CPAP Intake/Output Intake/Output: Intake & Output 09/16/24 09/17/24 09/18/24 09/19/24 23:59 23:59 23:59 23:59 Intake Total 1508 3170 1453.3 570 Output Total 1100 1450 1650 800 Balance 408 1720 -196.7 -230 Meds/Results Medications: Active Medications Generic Name Dose Route Start Last Admin Trade Name Freq PRN Reason Stop Dose Admin Acetaminophen 1,000 mg 09/15/24 18:59 09/16/24 21:27 Acetaminophen 500 Mg Tablet PO 1,000 mg Q6H PRN Administration Mild Pain (1-3) or Fever Hydrocodone Bitart/Acetaminophen 1 tab 09/16/24 16:50 09/19/24 09:13 Hydrocodone/Acetaminophen (*Crx) 5-325 Mg Tablet PO 1 tab Q6H PRN Administration Pain Rated 4-6 Dicyclomine HCl 20 mg 09/15/24 18:59 09/17/24 21:30 Dicyclomine Hcl 10 Mg Capsule PO 20 mg QID PRN Administration Abdominal Cramping Docusate Sodium 100 mg 09/15/24 21:15 09/17/24 08:33 Docusate Sodium 100 Mg Capsule PO 100 mg Q12HR PRN Administration constipation Famotidine 20 mg 09/15/24 21:15 09/19/24 09:06 Famotidine 20 Mg Tablet PO 20 mg Q12HR ANGELA Administration Fentanyl Citrate 25 mcg 09/15/24 18:59 09/16/24 15:55 Fentanyl Citrate Inj (*Crx) 100 Mcg/2 Ml Vial IV PUSH 25 mcg Q4H PRN Administration Pain Rated 7-10 Fluticasone Propionate 1 spray 09/16/24 09:00 09/19/24 09:07 Fluticasone Propionate 0.05% Na Spr 16 Gm Btl (*Bkc) NASAL 1 spray DAILY ANGELA Administration Metronidazole 500 mg in 100 mls @ 100 mls/hr 09/17/24 16:00 09/19/24 10:10 Flagyl 500 Mg/Iso Soln 100 Ml IVPB Infused Q8H ANGELA Infusion Ceftriaxone Sodium 1 gm in 50 mls @ 100 mls/hr 09/17/24 15:00 09/18/24 15:36 Rocephin 1 Gm/Ns 50 Ml IVPB 100 mls/hr Q24H ANGELA Administration Levothyroxine Sodium 200 mcg 09/16/24 06:30 09/19/24 05:53 Levothyroxine Sodium 100 Mcg Tablet PO 200 mcg DAILY@0630 ANGELA Administration Loratadine 10 mg 09/15/24 21:12 Loratadine 10 Mg Tablet PO DAILY PRN allergy symptoms Metoprolol Tartrate 50 mg 09/16/24 09:00 09/19/24 09:06 Metoprolol Tartrate 50 Mg Tab PO 50 mg Q12HR ANGELA Administration Minoxidil 2.5 mg 09/16/24 09:00 09/19/24 09:06 Minoxidil 2.5 Mg Tablet PO 2.5 mg DAILY ANGELA Administration Morphine Sulfate 2 mg 09/15/24 19:00 09/18/24 04:15 Morphine Sulfate (*Crx) 2 Mg/Ml Inj IV PUSH 2 mg Q4H PRN Administration Pain Rated 4-6 Morphine Sulfate 2 mg 09/17/24 15:02 09/18/24 20:56 Morphine Sulfate (*Crx) 2 Mg/Ml Inj IV PUSH 2 mg Q4H PRN Administration Pain Rated 7-10 Multi-Ingred Cream/Lotion/Oil/Oint 1 applic 09/16/24 09:00 09/19/24 09:07 Eucerin Cream 120 Gm Jar TOPICAL 1 applic BID ANGELA Administration Ondansetron HCl 4 mg 09/15/24 17:08 09/16/24 09:00 Ondansetron Inj 4 Mg/2 Ml Vial IV PUSH 4 mg Q4H PRN Administration Nausea Pantoprazole Sodium 40 mg 09/16/24 09:00 09/19/24 09:10 Pantoprazole Sodium Iv 40 Mg Vial IV PUSH 40 mg QAM ANGELA Administration Polyethylene Glycol 17 gm 09/15/24 21:12 09/16/24 12:59 Polyethylene Glycol 3350 17 Gm Powd.Pack PO 17 gm DAILY PRN Administration Constipation Spironolactone 25 mg 09/16/24 09:00 09/19/24 09:06 Spironolactone 25 Mg Tablet PO 25 mg DAILY ANGELA Administration Tamsulosin HCl 0.4 mg 09/16/24 09:00 09/19/24 09:06 Tamsulosin Hcl 0.4 Mg Capsule PO 0.4 mg QAM ANGELA Administration Radiology Results: ITS Impressions Abdomen/Pelvis CT 09/15/24 16:02 IMPRESSION: 1. No evidence of appendicitis, diverticulitis or intestinal obstruction. 2. Hepatomegaly. 3. Hypodensity in the liver which may be a cyst. Unchanged from previous examination. 4. Tiny calcific area in the right kidney upper pole unchanged from previous examination. 5. Constipation with proctitis. Renal Ultrasound 09/17/24 09:01 IMPRESSION: Partially visualized right kidney with inability to have proper window for vascularity assessment. Possible mild left hydronephrosis. Follow-up advised. Labs Labs: Laboratory Results - last 24 hr 09/19/24 05:27 WBC 11.2 H RBC 3.43 L Hgb 8.6 L Hct 29.0 L MCV 84.5 MCH 25.1 L MCHC 29.7 L RDW 15.4 H Plt Count 381 H MPV 10.0 Immature Gran % (Auto) 0.8 H Neut % (Auto) 88.4 H Lymph % (Auto) 3.3 L [place] % (Auto) 5.0 Eos % (Auto) 2.0 Baso % (Auto) 0.5 Lymph # (Auto) 0.37 L [place] # (Auto) 0.6 Eos # (Auto) 0.2 Baso # (Auto) 0.1 Abs Immat Gran (auto) 0.09 H Absolute Neuts (auto) 9.9 H Absolute Nucleated RBC 0.000 Band Neutrophils % Not Reportable Nucleated RBC % 0.0 Platelet Estimate Slightly increased Hypochromasia 2+ Anisocytosis 1+ Tear Drop Cells 1+ Ovalocytes 1+ Schistocytes None seen Sodium 138 Potassium 3.2 L Chloride 103 Carbon Dioxide 24 Anion Gap 11 BUN 59 H D Creatinine 1.74 H Estim Creat Clear Calc 48 Estimated GFR 38 L Glucose 101 Calcium 8.8 Phosphorus 2.9 Magnesium 4.0 H Total Bilirubin 0.3 AST 19 ALT 12 Alkaline Phosphatase 74 Total Protein 6.7 Albumin 3.9
[2024-09-19 15:00] VITALS: BP 104/60; PULSE 65; RESP 18; TEMP 36.2; O2SAT 98
[2024-09-19 21:35] VITALS: PULSE 78; O2SAT 97
[2024-09-19 22:23] VITALS: BP 116/67; PULSE 68; RESP 16; TEMP 36.5; O2SAT 100
[2024-09-20 05:37] LABS: Basophils Absolute Auto 0.1 K/mm3 (0.0-0.1); Basophils Percent Auto 0.7 % (0.2-1.2); Eosinophils Absolute Auto 0.4 K/mm3 (0-0.3); Eosinophils Percent Auto 3.3 % (0-4.4); Hematocrit 29.6 % (42.0-52.0); Hemoglobin 8.7 g/dL (14.0-18.0); Immature Granulocyte Absolute 0.06 K/mm3 (0.00-0.031); Immature Granulocyte Percent A 0.6 % (0-0.5); Lymphocytes Absolute Auto 0.49 K/mm3 (0.9-3.2); Lymphocytes Percent Auto 4.6 % (18.3-44.2); Mean Corpuscular HGB Conc 29.4 g/dl (32-36); Mean Corpuscular Hemoglobin 25.6 pg (26-34); Mean Corpuscular Volume 87.1 fl (80-100); Mean Platelet Volume 10.3 fl (7.4-10.4); Monocytes Absolute Auto 0.7 K/mm3 (0.1-0.6); Monocytes Percent Auto 6.7 % (2.6-8.5); Neutrophils Absolute Auto 8.9 K/mm3 (1.3-6.7); Neutrophils Percent Auto 84.1 % (45.5-73.1); Platelet Count Result 350 k/mm3 (150-375); Red Cell Distribution Width 15.5 % (11.5-14.5); White Blood Count 10.6 K/mm3 (4.5-10.0)
[2024-09-20] MEDS: LEVOTHYROXINE SODIUM 100 MCG TABLET 200 MCG PO (05:53)
[2024-09-20 06:02] LABS: Alanine Aminotransferase 10 U/L (6-50); Albumin Level 3.8 g/dL (3.5-5.1); Alkaline Phosphatase 65 U/L (38-126); Anion Gap 10 mmol/L (4-12); Aspartate Amino Transferase 17 U/L (17-59); Band Neutrophils Percent 0 % (0-6); Bilirubin,Total 0.3 mg/dL (0.2-1.3); Blood Urea Nitrogen 46 mg/dL (9-20); Calcium 8.9 mg/dL (8.4-10.2); Carbon Dioxide 26 mmol/L (22-30); Chloride 103 mmol/L (98-107); Estimated CRCL calculation 46 ml/min; Estimated Glomerular Filt Rate 36; Glucose 101 mg/dL (65-110); Magnesium 3.6 mg/dL (1.6-2.3); Phosphorus 2.3 mg/dL (2.5-4.5); Platelet Estimate Increased (Adequate); Potassium 3.7 mmol/L (3.4-5.0); Sodium 139 mmol/L (137-145); Total Protein 6.6 g/dL (6.3-8.2)
[2024-09-20 06:03] LABS: Hypochromasia 1+; Ovalocytes 1+; Schistocytes None Seen; Tear Drop Cells 1+
[2024-09-20 07:00] VITALS: BP 138/68; PULSE 66; RESP 16; TEMP 36.7; O2SAT 100
[2024-09-20 09:04] VITALS: PULSE 69
[2024-09-20] MEDS: METOPROLOL TARTRATE 50 MG TAB PO (09:04)
[2024-09-20] MEDS: SPIRONOLACTONE 25 MG TABLET PO (09:04)
[2024-09-20] MEDS: TAMSULOSIN HCL 0.4 MG CAPSULE PO (09:04)
[2024-09-20 09:05] VITALS: PULSE 69; O2SAT 100
[2024-09-20] MEDS: PANTOPRAZOLE SODIUM IV 40 MG VIAL IV PUSH (09:05)
[2024-09-20] MEDS: FLUTICASONE PROPIONATE 0.05% NA SPR 16 GM BTL (*BKC) 1 SPRAY NASAL (09:05)
[2024-09-20] MEDS: EUCERIN CREAM 120 GM JAR 1 APPLIC TOPICAL (09:05)
[2024-09-20] MEDS: FAMOTIDINE 20 MG TABLET PO (09:05)
[2024-09-20] MEDS: metroNIDAZOLE 500 MG/ISO 100ML 500 MG/100 ML BAG 100 MG IVPB (09:05)
[2024-09-20] MEDS: ACETAMINOPHEN 500 MG TABLET 1000 MG PO (09:12)
--- NOTE | 2024-09-20 10:10 | P.DS_ITS ---
DS: Admitting Diagnosis Discharge Date 09/20/24 Admitting Diagnosis GI Bleed, melena DS: Discharge Diagnosis Discharge Diagnosis (1) Stercoral ulcer of rectum: Code(s): K62.6 - Ulcer of anus and rectum Status: Acute (2) Fecal impaction: Code(s): K56.41 - Fecal impaction Status: Acute DS: Summary Hospital Course Hospital Course: This is a 74 year old male patient with a history of CKD, HTN, CHF, Hypothyroidism, GERD, atrial fibrillation who underwent a recent Right BKA due to chronic wounds with peripheral vascular disease. Patient is admitted to the hospital due to left lower quadrant abdominal pain with black and bloody bowel movement and rectal pain. Patient denies fever or chills. He reports he is using his motorized scooter and slide board for transfers. His pain has been going on for a couple days and not improving. He denies difficulty breathing or chest pain. CT AP showed constipation with proctitis. Patient was started on Rocephin and Flagyl. Gi was consulted and patietn underwent Sigmoidoscopy which showed sterocaral ulcers with large amount of impacted stool in the recture which was removed adn ulcers biopsied. GI nnoted no need for colonoscopy and recommended Holding Eliquis for 5 days. Patient discharge on 5 more days of Cefdinir adn Flagyl, to resume eliquis on Saturday. Iron study from 09/15 showed isat of 10 with elevated TIBC and patient given 500mg IV iron and discharged on 30 more days of PO iron. Wll follow up with PCP for monitoring. kidney funciton is currently at baseline. diuretics were held on admission, Patietn will continue Bumex and SPirnolactone, discontinued Metolazone. F/u with Nephrology for further adjustments. F/u wt PCP in 3-5 days F/u with Nephrology and GI as instructed Time Spent with Patient Time attestation: Total time spent providing and/or coordinating discharge services: DS: Data Data Completed and Pending Pending studies at discharge: Pending at discharge 09/18/24 14:00 Surgical [PTH] Routine Labs on day of discharge: Labs from last 24 hours 09/20/24 04:44 WBC 10.6 H RBC 3.40 L Hgb 8.7 L Hct 29.6 L MCV 87.1 MCH 25.6 L MCHC 29.4 L RDW 15.5 H Plt Count 350 MPV 10.3 Immature Gran % (Auto) 0.6 H Neut % (Auto) 84.1 H Lymph % (Auto) 4.6 L [place] % (Auto) 6.7 Eos % (Auto) 3.3 Baso % (Auto) 0.7 Lymph # (Auto) 0.49 L [place] # (Auto) 0.7 H Eos # (Auto) 0.4 H Baso # (Auto) 0.1 Abs Immat Gran (auto) 0.06 H Absolute Neuts (auto) 8.9 H Absolute Nucleated RBC 0.000 Band Neutrophils % 0 Nucleated RBC % 0.0 Platelet Estimate Increased Hypochromasia 1+ Tear Drop Cells 1+ Ovalocytes 1+ Schistocytes None seen Sodium 139 Potassium 3.7 Chloride 103 Carbon Dioxide 26 Anion Gap 10 BUN 46 H D Creatinine 1.82 H Estim Creat Clear Calc 46 Estimated GFR 36 L Glucose 101 Calcium 8.9 Phosphorus 2.3 L Magnesium 3.6 H Total Bilirubin 0.3 AST 17 ALT 10 Alkaline Phosphatase 65 Total Protein 6.6 Albumin 3.8 Discharge Plan Discharge Attending physician on discharge: Kathleen Manriquez Consulting providers: Chester Longo Discharging Clinician: Kathleen Manriquez Anticipated Discharge Date/Time: 09/20/24 10:01 Patient Disposition: NH Residential/Asst Living Activity: as tolerated Diet: as tolerated and heart healthy Discharge Instructions: Hold Eliquis until Saturday per GI recommendations. Patient Instructions: Antibiotic Form, Apixaban (By mouth), Heart Failure (DC) Patient Language: Danish Stand Alone Forms: General Discharge Information Follow-up/Referrals: Lilliana Tomas NP [Primary Care Provider] - (F/u with PCP in 3-5 days ) Chester Longo MD [Physician] - (F/u with nephrology as instructed) Darrell Hernandez MD [Physician] - (F/u with GI as instructed ) Discharge Medications: New cefdinir 300 mg capsule 300 mg PO Q12H 5 Days Qty: 10 0RF metronidazole 500 mg tablet 500 mg PO Q8H 5 Days Qty: 15 0RF ferrous sulfate 325 mg (65 mg iron) tablet,delayed release (DR/EC) 325 mg PO DAILY 30 Days Qty: 30 0RF Continued loratadine [Claritin] 10 mg tablet 10 mg PO DAILY PRN (Reason: allergy symptoms) fluticasone propionate [Flonase Allergy Relief] 50 mcg/actuation spray,suspension 1 spray intranasal DAILY Rx Instructions: administer into each nostril metoprolol tartrate 50 mg tablet 50 mg PO Q12HR Qty: 180 1RF acetazolamide 250 mg tablet 250 mg PO DAILY calcitriol 0.25 mcg capsule 0.25 mcg PO 3XW Qty: 36 3RF Rx Instructions: take on Saturday, Saturday, Fridays minoxidil 2.5 mg tablet 2.5 mg PO DAILY potassium chloride 10 mEq capsule, extended release 10 meq PO DAILY famotidine 20 mg tablet 20 mg PO BID Qty: 180 3RF levothyroxine 200 mcg tablet 200 mcg PO DAILY Qty: 90 1RF tamsulosin 0.4 mg capsule 0.4 mg PO QAM Qty: 90 3RF allopurinol 100 mg tablet 100 mg PO DAILY Qty: 10 0RF Minerin Creme Cream 1 applic topical BID Qty: 113 0RF Rx Instructions: Apply to jackie lower legs acetaminophen 500 mg capsule 500 mg PO Q6H PRN (Reason: fever or pain) bisacodyl [Dulcolax (bisacodyl)] 10 mg suppository 10 mg RECTAL DAILY PRN (Reason: constipation) scopolamine base 1 mg over 3 days patch 3 day 1 patch transdermal Q72H polyethylene glycol 3350 [Miralax] 17 gram/dose Powder 17 g PO DAILY PRN (Reason: Constipation) docusate sodium 100 mg Capsule 100 mg PO Q12H PRN (Reason: constipation) gabapentin 300 mg capsule 300 mg PO TID Qty: 270 1RF bumetanide 1 mg tablet See Rx Instructions .ROUTE .COMPLEX Qty: 270 3RF Dose Instruction: TAKE 1 TABLET BY MOUTH 3 TIMES DAILY Rx Instructions: TAKE 1 TABLET BY MOUTH 3 TIMES DAILY spironolactone 25 mg tablet 25 mg PO DAILY Qty: 30 0RF Held Eliquis 5 mg tablet 5 mg PO Q12HR Qty: 180 1RF Hold Instructions: Resume on 09/25/24. Hold per GI, due to stercoral ulcer post sigmoidoscopy Patient Comments: Discontinued metolazone 5 mg tablet 5 mg PO DAILY Date of admission: 09/16/24 16:27 Primary Care Provider: Lilliana Tomas Admitting Provider: Sylvain Jordan Attending physician on admission: Sylvain Jordan Condition: Stable
[2024-09-20] MEDS: IRON SUCROSE COMPLEX 400 MG, IRON SUCROSE COMPLEX 100 MG in SODIUM CHLORIDE 0.9% IV 250 ML 78.57 MG IVPB (10:54)
[2024-09-20 11:29] LABS: SARS-CoV-2 RNA PCR Negative (Negative)
--- NOTE | 2024-09-20 13:07 | PC.NURSE ---
Attempted to call report. No answer. Left VM.
--- NOTE | 2024-09-20 13:31 | PC.NURSE ---
CALLED REPORT TO [facility] AT [facility]. ORDERS AND COVID RESULT FAXED. NO QUESTIONS OR CONCERNS AT THIS TIME. PATIENT TO RETURN TO [facility] VIA EMS
[2024-09-20 15:00] VITALS: BP 126/70; PULSE 64; RESP 18; TEMP 36.6; O2SAT 99
--- NOTE | 2024-09-20 16:02 | PC.NURSE ---
Patient picked up via EMS. IV removed
== END 2024-09-20 16:00 | DRG 378 ==
LOC: ANHED 17:07 → ANH2MED 17:18
PROVIDERS: Family Medicine; Internal Medicine; Internal Medicine Gastroenterology; Internal Medicine Nephrology; Nurse Practitioner; Admitting Provider General Practice; Emergency Provider Emergency Medicine; PCP Nurse Practitioner Family; Visit Provider Internal Medicine
PROC: 0DJ08ZZ Inspection of Upper Intestinal Tract, Via Natural or Artificial Opening Endoscopic (ICD-10-PCS; principal; 2024-09-18 13:00)
PROC: 0DJD8ZZ Inspection of Lower Intestinal Tract, Via Natural or Artificial Opening Endoscopic (ICD-10-PCS; CPT 45330; 2024-09-18 13:00)
DX: K92.2 Gastrointestinal hemorrhage, unspecified (principal); E87.1 Hypo-osmolality and hyponatremia; Z68.41 Body mass index [BMI] 40.0-44.9, adult; I13.0 Hypertensive heart and chronic kidney disease with heart failure and stage 1 through stage 4 chronic kidney disease, or unspecified chronic kidney disease; N18.4 Chronic kidney disease, stage 4 (severe); I50.22 Chronic systolic (congestive) heart failure; N17.9 Acute kidney failure, unspecified; K62.6 Ulcer of anus and rectum; K63.5 Polyp of colon; K56.41 Fecal impaction; D63.1 Anemia in chronic kidney disease; E66.01 Morbid (severe) obesity due to excess calories; E87.6 Hypokalemia; E03.9 Hypothyroidism, unspecified; G89.29 Other chronic pain; G47.33 Obstructive sleep apnea (adult) (pediatric); G62.9 Polyneuropathy, unspecified; I48.91 Unspecified atrial fibrillation; I73.9 Peripheral vascular disease, unspecified; K21.9 Gastro-esophageal reflux disease without esophagitis; M10.9 Gout, unspecified; M54.9 Dorsalgia, unspecified; Z11.52 Encounter for screening for COVID-19; Z88.0 Allergy status to penicillin; Z79.01 Long term (current) use of anticoagulants; Z90.49 Acquired absence of other specified parts of digestive tract; Z87.891 Personal history of nicotine dependence; Z89.511 Acquired absence of right leg below knee
CPT/HCPCS: 36415; 71045; 74176; 76775; 80048; 80053; 80069; 81003; 81050; 82550; 82570; 82607; 82728; 82746; 82803; 82948; 83540; 83550; 83605; 83690; 83735; 84100; 84145; 84156; 84300; 84540; 85014; 85018; 85025; 85610; 85652; 85730; 85999; 86140; 86850; 86900; 86901; 87635; 88305; 88342; 93005; 96361; 96374; 96375; 96376; 99285; A9270; G0378; J0696; J1756; J1836; J2003; J2270; J2405; J2470; J2704; J3010; J3480; J7030; J7040; J7050; J7120

== ENCOUNTER 2024-09-30 12:32 | Emergency (ER) | payer MEDICARE, SELFPAY ==
--- NOTE | ~2024-09-30 | CT_ITS ---
EXAMINATION: CT abdomen pelvis wo con DATE: 09/30/2024 14:40 INDICATION: Localized abdominal pain TECHNIQUE: Computed tomography (CT) of the abdomen and pelvis was performed without intravenous contr ast. Automated exposure control and iterative reconstruction technique were employed. The dose-length product was 1516.66 mGy-cm. COMPARISON: None FINDINGS: Mild atelectasis at the dependent lung bases. Heart size is normal. Atherosclerotic coronary artery c alcific location. No pericardial or pleural effusion. Cholecystectomy clips at the gallbladder fossa. There are a few small hepatic and splenic calcifications consistent with old granulomatous disease. There are several small splenules at the periphery of the spleen. Pancreas and bilateral adrenal glan ds are normal. Bilateral nonobstructing nephrolithiasis with 1-2 mm stone in the left kidney and 3 mm stone in the right kidney. No ureteral stones or hydronephrosis. There is mild colonic diverticulosi s with a sigmoid predominance. There is no adjacent inflammatory change to suggest diverticulitis. There is high attenuation material, potentially an appendicoliths within the otherwise normal appendi x with no periappendiceal inflammatory stranding to suggest acute appendicitis. No bowel obstruction. Moderate amount of stool in the distal colon including 7.3 x 6.3 cm ball of stool at the rectum whic h can be seen with constipation with fecal impaction. Bladder is normal. No free intraperitoneal gas or fluid. No pathologically enlarged abdominal or pelvic lymphadenopathy. There is calcified atherosc lerosis of the aorta and many of the other arteries. Chronic appearing mild anterior wedging at T10 a nd T11. Moderate thoracic and lumbar spondylosis with severe multilevel lumbar facet osteoarthritis. IMPRESSION: 1. Moderate amount of distal colonic stool with 7.3 x 6.3 cm bulge with rectum which can be seen with constipation and fecal impaction. No other acute intra-abdominal/pelvic process. 2. Bilateral nonobstructing nephrolithiasis. Reviewed, dictated and finalized at location A. IMPRESSION: 1. Moderate amount of distal colonic stool with 7.3 x 6.3 cm bulge with rectum which can be seen with constipation and fecal impaction. No other acute intra-a bdominal/pelvic process. 2. Bilateral nonobstructing nephrolithiasis.
--- OUTSIDE RECORDS SUMMARY | 2024-09-30 12:34 | XMS_ITS | Referral Summary ---
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 Name Role Phone Alicia Malcolm MD Primary Care Provider Encounters Date Type Department Care Team Description 08/12/2024 10:45 AM CDT Office Visit [facility] at [address] [place] [phone] Roseanne Chamberlain PA PVD (peripheral vascular disease) [...] 04/06/2023 Assessment & Plan (02/05/2024 11:[address] CONTRACT[address]): Venous insufficiency noted to both lower extremities [...] on file Legal Sex Male 1:[address] CONTRACT[address] Gender Identity Not on file Sexual Orientation Not on file Last Filed Vital Signs Vital Sign Reading Time Taken Comments Blood Pressure 104/62 08/12/2024 10:43 AM CDT Pulse 79 08/12/2024 10:43 AM CDT Temperature 36.8 C (98.2 F) 12/25/2019 11:12 AM CDT Respiratory Rate 15 02/04/2020 11:[address] CONTRACTOR Oxygen Saturation 98% 08/12/2024 10:43 AM CDT Inhaled Oxygen Concentration - - Weight 148.3 kg (327 lb) 08/12/2024 10:43 AM CDT Height 185.4 cm (6' 1) 08/12/2024 10:43 AM CDT Body Mass Index 43.14 08/12/2024 10:43 AM CDT Plan of Treatment Not on file [place] [address] MEDICARE RAILROAD [facility] MEDICARE SUPPLEMENT Care Teams Sand Cleaning Machine Operator Relationship Specialty Start Date End Date Alicia Malcolm MD [address] [facility] [address] [place] [address] PCP - General Family Practice 05/14/24
--- OUTSIDE RECORDS SUMMARY | 2024-09-30 12:34 | XMS_ITS | Encounter Summary ---
Author Organization [facility] Address [address] [address] Phone Care Team Providers Care Head End Desizing Machine Operator Name Role Phone Alicia Malcolm MD Primary Care Provider Reason for Visit * Reason Comments Med Refill Encounter Details Date Type Department Care Team (Late st Contact Info) Description 02/23/2019 Refill [facility] Nephrology and Hypertension [address] [place] [address], [address] [place] [address] Chester Longo MD [address] [facility], [address] [place] [address] Social History Tobacco Use Types Packs/Day Years [...] on filedocumented in this encounter Care Teams Head End Desizing Machine Operator Relationship Specialty Start Date End Date Alicia Malcolm MD [address] [place] [address] PCP - General Internal Medicine 08/05/18 documented as of this encounter
--- OUTSIDE RECORDS SUMMARY | 2024-09-30 12:34 | XMS_ITS | Encounter Summary ---
Author Organization [facility] Address [address] [address] Phone Care Team Providers Care Cigarette Vendor Name Role Phone Alicia Malcolm MD Primary Care Provider Encounter Details Date Type Department Care Team (Late st Contact Info) Description 09/17/2019 Telephone [facility] Nephrology and Hypertension [address] [facility], [address] [facility] [place] [address] Jacquie Al MA Social History Tobacco Use [...] on filedocumented in this encounter Care Teams Cigarette Vendor Relationship Specialty Start Date End Date Alicia Malcolm MD [address] [place] [address] PCP - General Internal Medicine 08/05/18 documented as of this encounter
--- OUTSIDE RECORDS SUMMARY | 2024-09-30 12:34 | XMS_ITS | Clinical Summary ---
Author Organization [facility] Address [address], [place] [address] Phone Care Team Providers Care Agriculture Teacher Name Role Phone Alicia Malcolm MD Primary Care Provider Allergies Active Allergy Reactions Criticality Noted Date Comments Codeine Nausea Only Low Other reaction(s): Vomiting Hydrocodone Nausea Only,Other (s ee comments) Low Penicillins Hives,Rash Medium Sulfa Antibiotics Rash Medium Medications omeprazole (PRILOSEC) [address] capsule 1 tab qday 2 Active ergocalciferol (VITAMIN D-2) 36018 units capsule 1 tab/cap every week for [...] on file Legal Sex Male 8:22 AM [facility] Gender Identity Not on file Sexual Orientation [...] Risk Completed 01/12/2020, 01/21/2019 Insurance MEDICARE RAILROAD [facility] MEDICARE SUPPLEMENT Care Teams Agriculture Teacher Relationship Specialty Start Date End Date Alicia Malcolm MD [address] [place] [address] PCP - General Internal Medicine 08/05/18
--- OUTSIDE RECORDS SUMMARY | 2024-09-30 12:34 | XMS_ITS | Encounter Summary ---
Author Organization [facility] Address [address], [place] [address] Phone Care Team Providers Care Buying Intern Name Role Phone Alicia Malcolm MD Primary Care Provider Reason for Visit * Reason Comments Med Refill Encounter Details Date Type Department Care Team (Late st Contact Info) Description 05/25/2019 Refill [facility] Nephrology and Hypertension [address] [place] [address], [address] [place] [address] Chester Longo MD [address] [facility], [address] [place] [address] Social History Tobacco Use Types Packs/Day Years [...] on filedocumented in this encounter Care Teams Buying Intern Relationship Specialty Start Date End Date Alicia Malcolm MD [address] [place] [address] PCP - General Internal Medicine 08/05/18 documented as of this encounter
--- OUTSIDE RECORDS SUMMARY | 2024-09-30 12:34 | XMS_ITS | Clinical Summary ---
Author Organization [facility] [address] Address [address] [place] [address] Care Team Providers Care Spinner Concrete Pipe Name Role Phone Alicia Malcolm MD Primary [...] 04/06/2023 Assessment & Plan (02/05/2024 11:38 AM [employer]): Venous insufficiency noted to both lower extremities [...] Description 08/12/2024 10:45 AM CDT Office Visit [facility] Medical Group Vascular at [address] [place] [address] Roseanne Chamberlain PA PVD (peripheral [...] on file Legal Sex Male 1:10 PM [employer] Gender Identity Not on file Sexual Orientation Not on file Obstetrics History Last Filed Vital Signs Vital Sign Reading Time Taken Comments Blood Pressure 104/62 08/12/2024 10:43 AM CDT Pulse 79 08/12/2024 10:43 AM CDT Temperature 36.8 C (98.2 F) 12/25/2019 11:12 AM CDT Respiratory Rate 15 02/04/2020 11:41 AM [employer] Oxygen Saturation 98% 08/12/2024 10:43 AM CDT [...] Completed 07/28/2021 Insurance MEDICARE RAILROAD MEDICARE [place] [address] [place] [address] MEDICARE SUPPLEMENT Care Teams Spinner Concrete Pipe Relationship Specialty Start Date End Date Alicia Malcolm MD [address] [facility] [address] [place] [address] PCP - General Family Practice 05/14/24
--- OUTSIDE RECORDS SUMMARY | 2024-09-30 12:34 | XMS_ITS | Clinical Summary ---
Author Organization [facility] Address [address] [place] [address] Care Team Providers Care Electrical Accessories I Assembler Name Role Phone Taco Ho MD Primary Care Provider [phone] Social History Tobacco Use Types Packs/Day Years Used Date Smoking Tobacco: Never Assessed Sex and Gender Information Value Date Recorded Sex Assigned at Not on file Legal Sex Male 7:28 PM CDT Gender Identity Not on file Sexual Orientation Not on file Last Filed Vital Signs Vital Sign Reading Time Taken Comments Blood Pressure 132/76 05/05/2013 11:08 AM SATURATOR Pulse 80 05/05/2013 11:08 AM SATURATOR Temperature - - Respiratory Rate - - Oxygen Saturation - - Inhaled Oxygen Concentration - - Weight 154.2 kg (340 lb) 05/05/2013 11:08 AM SATURATOR Height 185.4 cm (6' 1) 05/05/2013 11:08 AM SATURATOR Body Mass Index 44.86 05/05/2013 11:08 AM SATURATOR Plan of Treatment Health Maintenance Due Date Last Done Comments Colorectal Cancer Screening Colonoscopy (10 Years) 1949 Hepatitis C 1967 DTaP, Tdap and Td Vaccines ( 1 - Tdap) 02/09/1968 Pneumococcal Vaccine: 50+ Ye ars (1 of 1 - PCV) 1999 Zoster Vaccines (1 of 2) 1999 COVID-19 Vaccine ( - 2023-2 5 season) 2023 RSV Immunization or 60+ Years (1 [...] age to complete this topic Care Teams Electrical Accessories I Assembler Relationship Specialty Start Date End Date Taco Ho MD [address] [place] [address] PCP - General 10/24/12
--- OUTSIDE RECORDS SUMMARY | 2024-09-30 12:34 | XMS_ITS | Encounter Summary ---
Author Organization [facility] Address [address] [place] [address] Care Team Providers Care Reprint Sorter Name Role Phone Taco Ho MD Primary Care Provider [phone] Encounter Details Date Type Department Care Team (Latest Contact Info) Description 02/04/2018 Abstract [facility] , Milla Gaspar MD [...] on filedocumented in this encounter Care Teams Reprint Sorter Relationship Specialty Start Date End Date Taco Ho MD [address] [place] [address] PCP - General 10/24/12 documented as of this encounter
--- OUTSIDE RECORDS SUMMARY | 2024-09-30 12:34 | XMS_ITS | Clinical Summary ---
Author Organization [facility] Address [address] [place] [address] Care Team Providers Care Fashion Design Professor Name Role Phone Taco Ho MD Primary Care Provider [phone] Source Comments [facility],non-[place] Affiliates and Associated Physician Practices is amultiple site organization consisting of ambulatory clinics and hospital sitesin [place], [place], [place] and [place]. This disclosure is being madepursuant to the Care Everywhere program and may not contain all information available regarding this patient. 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 Gender Identity Not on file Sexual [...] this topic Medical Devices Implanted Type Area Night Custodian Device Identifier Shelf Expiration Date Model / Serial / Lot Biomet Polyax Proximal Tibial/Distal Femoral Locking Plating System 5.5mm Ft Polyu Locking Screws Implanted:Qty: 2 on 08/02/2021 by Anibal Pressley DO at [facility] Right: Femur [id number] / / Biomet Polyax Proximal Tibial/Distal Femoral Locking Plating System 8.0mm Cannulated Locking Screw Implanted:Qty: 1 on 08/02/2021 by Anibal Pressley DO at [facility] Right: [employer] [id number] / / Biomet Polyax Proximal Tibial/Distal Femoral Locking Plating System 4.5mm Solid Cortical Bone Screw, Ft Implanted:Qty: 2 on 08/02/2021 by Anibal Pressley DO at [facility] Right: Femur [id number] / / Biomet Polyax Proximal Tibial/Distal Femoral Locking Plating System 5.5mm Ft Polyu Locking Screws Implanted:Qty: 1 on 08/02/2021 by Anibal Pressley DO at [facility] Right: Femur [id number] / / Biomet Polyax Proximal Tibial/Distal Femoral Locking Plating System 5.5mm Ft Polyu Locking Screws Implanted:Qty: 1 on 08/02/2021 by Anibal Pressley DO at [facility] Right: Femur [id number] / / Wire K 1.6mm 6in Hlf Bynt Pnt Ss Fx Implanted:Qty: 2 on 08/02/2021 by Anibal Pressley DO at [facility] [employer] [id number] / / Screw 3.5mm 5mm 60mm Ft Rvrs Cut Flut Implanted:Qty: 1 on 08/02/2021 by Anibal Pressley DO at [facility] Right: Femur [employer] [id number] / / Screw 3.5mm 5mm 80mm Ft Rvrs Cut Flut Implanted:Qty: 1 on 08/02/2021 by Anibal Pressley DO at [facility] Right: Femur [employer] [id number] / / Plate 9 Hl Lck Precontr Fem Rt Dist Implanted:Qty: 1 on 08/02/2021 by Anibal Pressley DO at [facility] Right: Femur [employer] [id number] / / Screw 3.5mm 5mm 85mm Ft Rvrs Cut Flut Implanted:Qty: 1 on 08/02/2021 by Anibal Pressley DO at [facility] Right: Femur [employer] [id number] / / Screw 3.5mm 5mm 90mm Ft Rvrs Cut Flut Implanted:Qty: 1 on 08/02/2021 by Anibal Pressley DO at [facility] Right: Femur [employer] [id number] / / Biomet Polyax Proximal Tibiasl/Distal Femoral Lociking Plating System 5.5 Mm Ft Poly Locking Screw Implanted:Qty: 2 on 08/02/2021 by Anibal Pressley DO at [facility] Right: Fem[employer] [id number] / / Biomet Polyax Proximal Tibial/Diatal Femoral Locking Plating System 4.5mm Solid Cortical Bone Screw, Ft Implanted:Qty: 1 on 08/02/2021 by Anibal Pressley DO at [facility] Right: Femur [employer] Inc [id number] / / Explanted Type Area Night Custodian Device Identifier Shelf Expiration Date Model / Serial / Lot Wire K 2mm 228mm Troc Pnt Ss Prlc Plate Explanted:Qty: 2 on 08/02/2021 at [facility] Right: Femur [employer] 01/13/2031 [id number] / / [id number] Biomet Polyax Proximal Tibial/Distal Femoral Locking Plating System 5.5mm Ft Polyu Locking Screws Explanted:Qty: 2 on 08/02/2021 by Anibal Pressley DO at [facility] Right: Femur [id number] / / Biomet Polyax Proximal Tibial/Distal Femoral Locking Plating System 5.5mm Ft Polyu Locking Screws Explanted:Qty: 2 on 08/02/2021 by Anibal Pressley DO at [facility] Right: Femur [id number] / / Gd Pin Orth 3.2mm Polyax Fem Clbrt Lck Explanted:Qty: 1 on 08/02/2021 at [facility] [employer] [id number] / / Wshr Orth Ss 3.5-4 Mm Cecilia Screw Nonster Explanted:Qty: 3 on 08/02/2021 at [facility] [employer] [id number] / / Screw 3.5mm 5mm 85mm Ft Rvrs Cut Flut Explanted:Qty: 1 on 08/02/2021 by Anibal Pressley DO at [facility] Right: Femur [employer] [id number] / / Procedures Procedure Name Priority Date/Time Associated Diagnosis Comments HEPATITIS C AB SCREEN RFLX NAAT QUANT STAT 07/28/2021 1:43 PM CDT from Last 3 Months or Most Recently Relevant to Health Maintenance Results * HEPATITIS C AB SCREEN RFLX NAAT QUANT (07/28/2021 1:43 PM CDT) Hepatitis C Antibody Non-react oma Non-reac tive 07/28/2021 2:31 PM CDT [facility] Comment:Hepatitis C Antibody screen indicates no [...] MD LAB - CHEMISTRY ORDERABLES nal Result [facility] [address] [place] [address], [facility] [phone] from Last 3 Months or Most Recently Relevant to Health Maintenance Insurance MEDICARE [facility] [place] [address] ANTH SELF PAY NO INSURANCE Member Subscriber Plan / Payer (Ef fective for All Dates) Name:Irwin Cyr Jr. Member ID:Not on file Relation to Subscriber:Not on file Name:IRWIN CYR JR. Subscriber ID:Not on file (Home) Address: [address] [place] [id number] Payer ID:Not on file Group ID:Not on file Type:Self Pay Address: [place], [place] MEDICARE Advance Directives * Full Code (Latest Code Status on File) Date Activated Date Inactivated Comments 07/29/2021 1:11 AM 08/11/2021 10:19 PM Care Teams Fashion Design Professor Relationship Specialty Start Date End Date Taco Ho MD [address] [place] [address] PCP - General 08/07/21
--- NOTE | 2024-09-30 12:35 | PC.NURSE ---
# to call for cotton picker [phone], ask for worthy 4 nurse [phone] alternate number
[2024-09-30 12:36] VITALS: BP 114/73; PULSE 78; RESP 16; TEMP 36.8; O2SAT 100
--- OUTSIDE RECORDS SUMMARY | 2024-09-30 13:17 | XMS_ITS | Clinical Summary ---
Author Organization [facility] Address [address] [place] [address] Care Team Providers Care Animal Therapist Name Role Phone Taco Ho MD Primary Care Provider [phone] Source Comments [facility],non-[facility] [place] Affiliates and Associated Physician Practices is amultiple site organization consisting of ambulatory clinics and hospital sitesin [place], [place], [place] and [place]. This disclosure is being madepursuant to the Care Everywhere program and may not contain all information available regarding this patient. 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 Right: Femur [id number] / / Biomet Polyax Proximal Tibial/Distal Femoral Locking Plating System 8.0mm Cannulated Locking Screw Implanted:Qty: 1 on 08/02/2021 by Anibal Pressley DO at [facility] Right: Femur [employer] [id number] / / Biomet Polyax Proximal Tibial/Distal Femoral Locking Plating System 4.5mm Solid Cortical Bone Screw, Ft Implanted:Qty: 2 on 08/02/2021 by Anibal Pressley DO at [facility] Right: Femur [id number] / / Biomet Polyax Proximal Tibial/Distal Femoral Locking Plating System 5.5mm Ft Polyu Locking Screws Implanted:Qty: 1 on 08/02/2021 by Anibal Pressley DO at [facility] Right: Femur [id number] / / Biomet Polyax Proximal Tibial/Distal Femoral Locking Plating System 5.5mm Ft Polyu Locking Screws Implanted:Qty: 1 on 08/02/2021 by Anibal Pressley DO at [facility] Right: Femur [id number] / / Wire K 1.6mm 6in Hlf Bynt Pnt Ss Fx Implanted:Qty: 2 on 08/02/2021 by Anibal Pressley DO at [facility] [employer] [id number] / / Screw 3.5mm 5mm 60mm Ft Rvrs Cut Flut Implanted:Qty: 1 on 08/02/2021 by Anibal Pressley DO at [facility] Right: Femur [employer] [id number] / / Screw 3.5mm 5mm 80mm Ft Rvrs Cut Flut Implanted:Qty: 1 on 08/02/2021 by Anibal Pressley DO at [facility] Right: Femur [employer] [id number] / / Plate 9 Hl Lck Precontr Fem Rt Dist Implanted:Qty: 1 on 08/02/2021 by Anibal Pressley DO at [facility] Right: Femur [employer] [id number] / / Screw 3.5mm 5mm 85mm Ft Rvrs Cut Flut Implanted:Qty: 1 on 08/02/2021 by Anibal Pressley DO at [facility] Right: Femur [employer] [id number] / / Screw 3.5mm 5mm 90mm Ft Rvrs Cut Flut Implanted:Qty: 1 on 08/02/2021 by Anibal Pressley DO at [facility] Right: Femur [employer] [id number] / / Biomet Polyax Proximal Tibiasl/Distal Femoral Lociking Plating System 5.5 Mm Ft Poly Locking Screw Implanted:Qty: 2 on 08/02/2021 by Anibal Pressley DO at [facility] Right: Femur [employer] Inc [id number] / / Biomet Polyax Proximal Tibial/Diatal Femoral Locking Plating System 4.5mm Solid Cortical Bone Screw, Ft Implanted:Qty: 1 on 08/02/2021 by Anibal Pressley DO at [facility] Right: Femur [employer] [id number] / / Explanted Type Area Director Oncology Device Identifier Shelf Expiration Date Model / Serial / Lot Wire K 2mm 228mm Troc Pnt Ss Prlc Plate Explanted:Qty: 2 on 08/02/[address] [facility] Right: Femur [employer] 01/13/2031 [id number] / / [id number] Biomet Polyax Proximal Tibial/Distal Femoral Locking Plating System 5.5mm Ft Polyu Locking Screws Explanted:Qty: 2 on 08/02/2021 by Anibal Pressley DO at [facility] Right: Femur [id number] / / Biomet Polyax Proximal Tibial/Distal Femoral Locking Plating System 5.5mm Ft Polyu Locking Screws Explanted:Qty: 2 on 08/02/2021 by Anibal Pressley DO at [facility] Right: Femur [id number] / / Gd Pin Orth 3.2mm Polyax Fem Clbrt Lck Explanted:Qty: 1 on 08/02/[address] [facility] [employer] [id number] / / Wshr Orth Ss 3.5-4 Mm Cecilia Screw Nonster Explanted:Qty: 3 on 08/02/[address] [facility] [employer] [id number] / / Screw 3.5mm 5mm 85mm Ft Rvrs Cut Flut Explanted:Qty: 1 on 08/02/2021 by Anibal Pressley DO at [facility] Right: Femur [employer] [id number] / / Procedures Procedure Name Priority Date/Time Associated Diagnosis Comments HEPATITIS C AB SCREEN RFLX NAAT QUANT STAT 07/28/2021 1:43 PM CDT from Last 3 Months or Most Recently Relevant to Health Maintenance Results * HEPATITIS C AB SCREEN RFLX NAAT QUANT (07/28/2021 1:43 PM CDT) Hepatitis C Antibody Non-react oma Non-reac tive 07/28/2021 2:31 PM CDT [facility] Comment:Hepatitis C Antibody screen indicates no serologic [...] MD LAB - CHEMISTRY ORDERABLES nal Result [facility] [address] [place] [address], [facility] [phone] from Last 3 Months or Most Recently Relevant to Health Maintenance Insurance MEDICARE [facility] [address] ANTH SELF PAY NO INSURANCE Member Subscriber Plan / Payer (Ef fective for All Dates) Name:Irwin Cyr Jr. Member ID:Not on file Relation to Subscriber:Not on file Name:IRWIN CYR JR. Subscriber ID:Not on file (Home) Address: [address] [place] [phone] Payer ID:Not on file Group ID:Not on file Type:Self Pay Address: [place], [place] MEDICARE Advance Directives * Full Code (Latest Code Status on File) Date Activated Date Inactivated Comments 07/29/2021 1:11 AM 08/11/2021 10:19 PM Care Teams Animal Therapist Relationship Specialty Start Date End Date Taco Ho MD [address] [place] [address] PCP - General 08/07/21
--- OUTSIDE RECORDS SUMMARY | 2024-09-30 13:17 | XMS_ITS | Referral Summary ---
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): Venous insufficiency noted to both lower extremities [...] on file Legal Sex Male 1:10 PM 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 Gender Identity Not on file Sexual Orientation Not on file Last Filed Vital Signs Vital Sign Reading Time Taken Comments Blood Pressure 104/62 08/12/2024 10:43 AM CDT Pulse 79 08/12/2024 10:43 AM CDT Temperature 36.8 C (98.2 F) 12/25/2019 11:12 AM CDT Respiratory Rate 15 02/04/2020 11:41 AM 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 Oxygen Saturation 98% 08/12/2024 10:43 AM CDT Inhaled Oxygen Concentration - - Weight 148.3 kg (327 lb) 08/12/2024 10:43 AM CDT Height 185.4 cm (6' 1) 08/12/2024 10:43 AM CDT Body Mass Index 43.14 08/12/2024 10:43 AM CDT Plan of Treatment Not on file Insurance MEDICARE RAILROAD MEDICARE RAILROAD [facility] MEDICARE SUPPLEMENT Care Teams Centrex Radio Operator Relationship Specialty Start Date End Date Alicia Malcolm MD [address] [facility] [address] [place] [address] PCP - General Family Practice 05/14/24
--- OUTSIDE RECORDS SUMMARY | 2024-09-30 13:17 | XMS_ITS | Clinical Summary ---
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 Gender Identity Not on file Sexual Orientation Not on file Obstetrics History Last Filed Vital Signs Vital Sign Reading Time Taken Comments Blood Pressure 104/62 08/12/2024 10:43 AM CDT Pulse 79 08/12/2024 10:43 AM CDT Temperature 36.8 C (98.2 F) 12/25/2019 11:12 AM CDT Respiratory Rate 15 02/04/2020 11:41 AM FERTILIZER APPLICATOR Oxygen Saturation 98% 08/12/2024 10:43 AM CDT [...] Completed 07/28/2021 Insurance MEDICARE RAILROAD MEDICARE [place] [address] [place] [address] MEDICARE SUPPLEMENT Care Teams Parcel Wrapper Relationship Specialty Start Date End Date Alicia Malcolm MD [address] [facility] [address] [place] [address] PCP - General Family Practice 05/14/24
--- OUTSIDE RECORDS SUMMARY | 2024-09-30 13:17 | XMS_ITS | Clinical Summary ---
Author Organization [facility] Address [address], [place] [address] Phone Care Team Providers Care Die Maker Stamping Name Role Phone Alicia Malcolm MD Primary Care Provider Allergies Active Allergy Reactions Criticality Noted Date Comments Codeine Nausea Only Low Other reaction(s): Vomiting Hydrocodone Nausea Only,Other (s ee comments) Low Penicillins Hives,Rash Medium Sulfa Antibiotics Rash Medium Medications omeprazole (PRILOSEC) [address] capsule 1 tab qday 2 Active ergocalciferol (VITAMIN D-2) [address]881 units capsule 1 tab/cap every week for [...] on file Legal Sex Male 8:22 AM [facility] Gender Identity Not on file Sexual Orientation [...] Risk Completed 01/12/2020, 01/21/2019 Insurance MEDICARE RAILROAD [facility] MEDICARE SUPPLEMENT Care Teams Die Maker Stamping Relationship Specialty Start Date End Date Alicia Malcolm MD [address] [place] [address] PCP - General Internal Medicine 08/05/18
--- OUTSIDE RECORDS SUMMARY | 2024-09-30 13:18 | XMS_ITS | Encounter Summary ---
Author Organization [facility] Address [address] [address] Phone Care Team Providers Care Cloth Shrinking Tester Name Role Phone Alicia Malcolm MD Primary Care Provider Reason for Visit * Reason Comments Med Refill Encounter Details Date Type Department Care Team (Late st Contact Info) Description 02/23/2019 Refill [facility] Nephrology and Hypertension [address] [place] [address], [address] [place] [address] Chester Longo MD [address] [facility], [address] [place] [address] Social History Tobacco Use Types Packs/Day Years [...] on filedocumented in this encounter Care Teams Cloth Shrinking Tester Relationship Specialty Start Date End Date Alicia Malcolm MD [address] [place] [address] PCP - General Internal Medicine 08/05/18 documented as of this encounter
--- OUTSIDE RECORDS SUMMARY | 2024-09-30 13:18 | XMS_ITS | Encounter Summary ---
Author Organization [facility] Address [address] [place] [address] Care Team Providers Care Trash Man Name Role Phone Taco Ho MD Primary Care Provider [phone] Encounter Details Date Type Department Care Team (Latest Contact Info) Description 02/04/2018 Abstract [facility] , Milla Gaspar MD Social [...] on filedocumented in this encounter Care Teams Trash Man Relationship Specialty Start Date End Date Taco Ho MD [address] [place] [address] PCP - General 10/24/12 documented as of this encounter
--- OUTSIDE RECORDS SUMMARY | 2024-09-30 13:18 | XMS_ITS | Encounter Summary ---
Author Organization [facility] Address [address], [place] [address] Phone Care Team Providers Care Vendor Management Consultant Name Role Phone Alicia Malcolm MD Primary Care Provider Reason for Visit * Reason Comments Med Refill Encounter Details Date Type Department Care Team (Late st Contact Info) Description 05/25/2019 Refill [facility] Nephrology and Hypertension [address] [place] [address], [address] [place] [address] Chester Longo MD [address] [facility], [address] [place] [address] Social History Tobacco Use Types Packs/Day Years [...] on filedocumented in this encounter Care Teams Vendor Management Consultant Relationship Specialty Start Date End Date Alicia Malcolm MD [address] [place] [address] PCP - General Internal Medicine 08/05/18 documented as of this encounter
--- OUTSIDE RECORDS SUMMARY | 2024-09-30 13:18 | XMS_ITS | Encounter Summary ---
Author Organization [facility] Address [address] [address] Phone Care Team Providers Care Flight Attendant Name Role Phone Alicia Malcolm MD Primary Care Provider Encounter Details Date Type Department Care Team (Late st Contact Info) Description 09/17/2019 Telephone [facility] Nephrology and Hypertension [address] [facility], [address] [facility] [place] [address] Jacquie Al MA Social History Tobacco Use [...] Miscellaneous Notes * Telephone Encounter - Jacquie lA MA - 10/24/2020 10:14 AM CDT old documented in this encounter Plan of Treatment Not on file documented as of this encounter Visit Diagnoses Not on filedocumented in this encounter Care Teams Flight Attendant Relationship Specialty Start Date End Date Alicia Malcolm MD [address] [place] [address] PCP - General Internal Medicine 08/05/18 documented as of this encounter
--- OUTSIDE RECORDS SUMMARY | 2024-09-30 13:18 | XMS_ITS | Clinical Summary ---
Author Organization [facility] Address [address] [place] [address] Care Team Providers Care Computer Programming Supervisor Name Role Phone Taco Ho MD Primary Care Provider [phone] Social History Tobacco Use Types Packs/Day Years Used Date Smoking Tobacco: Never Assessed Sex and Gender Information Value Date Recorded Sex Assigned at Not on file Legal Sex Male 7:28 PM CDT Gender Identity Not on file Sexual Orientation Not on file Last Filed Vital Signs Vital Sign Reading Time Taken Comments Blood Pressure 132/76 05/05/2013 11:08 AM SIZE TESTER Pulse 80 05/05/2013 11:08 AM SIZE TESTER Temperature - - Respiratory Rate - - Oxygen Saturation - - Inhaled Oxygen Concentration - - Weight 154.2 kg (340 lb) 05/05/2013 11:08 AM SIZE TESTER Height 185.4 cm (6' 1) 05/05/2013 11:08 AM SIZE TESTER Body Mass Index 44.86 05/05/2013 11:08 AM SIZE TESTER Plan of Treatment Health Maintenance Due Date [...] age to complete this topic Care Teams Computer Programming Supervisor Relationship Specialty Start Date End Date Taco Ho MD [address] [place] [address] PCP - General 10/24/12
[2024-09-30 13:28] VITALS: O2SAT 100
[2024-09-30 13:58] LABS: Hematocrit 35.1 % (42.0-52.0); Hemoglobin 10.2 g/dL (14.0-18.0); Immature Granulocyte Percent A 0.8 % (0-0.5); Lymphocytes Absolute Auto 0.56 K/mm3 (0.9-3.2); Mean Corpuscular HGB Conc 29.1 g/dl (32-36); Mean Corpuscular Hemoglobin 25.6 pg (26-34); Mean Corpuscular Volume 88.0 fl (80-100); Nucleated Red Blood Cells Absolute Auto 0.000 K/mm3 (0.0-0.012); Nucleated Red Blood Cells Perc 0.0 % (0.0-0.2); Platelet Count Result 346 k/mm3 (150-375); Red Blood Count 3.99 M/mm3 (4.6-6.20); White Blood Count 11.8 K/mm3 (4.5-10.0)
--- NOTE | 2024-09-30 14:18 | ED_ITS ---
HPI - General Adult General Chief complaint: Recheck/Abnormal Lab/Rx Stated complaint: CHECKED FOR IMPACTION Time Seen by Provider: 09/30/24 13:07 History of Present Illness HPI narrative: Patient is a 74-year-old male who presents ER with concerns for fecal impaction. Was impaction last week and cleaned out. He reports he took multiple doses of MiraLax today and fleets enema without improvement. He had follow-up with GI today due to his pain and symptoms is into the ER for further evaluation. He is now leaking liquid stool from his rectum. He also has diffuse abdominal tenderness. He did not have abdominal pain earlier. No fevers or chills or sweats. No urinary symptoms. Related Data Home Medications ?Medication ?Instructions ?Recorded ?Confirmed ?Last Taken ?Type loratadine 10 mg tablet (Claritin) 10 mg PO DAILY PRN allergy symptoms 07/12/20 09/15/24 08/20/24 History polyethylene glycol 3350 17 17 g PO DAILY PRN Constipation 06/02/21 09/15/24 03/04/24 History gram/dose oral powder (Miralax) acetazolamide 250 mg tablet 250 mg PO DAILY 11/19/22 09/15/24 08/20/24 History fluticasone propionate 50 1 spray intranasal DAILY Congestion 11/19/22 09/15/24 08/20/24 History mcg/actuation nasal spray,suspension (Flonase Allergy Relief) docusate sodium 100 mg capsule 100 mg PO Q12H PRN constipation 05/13/24 09/15/24 Unknown History minoxidil 2.5 mg tablet 2.5 mg PO DAILY 08/04/24 09/15/24 08/20/24 08:00 History 2.5 mg potassium chloride 10 mEq 10 meq PO DAILY 08/04/24 09/15/24 Unknown History capsule,extended release acetaminophen 500 mg capsule 500 mg PO Q6H PRN fever or pain 09/15/24 09/15/24 Unknown History bisacodyl 10 mg rectal suppository 10 mg RECTAL DAILY PRN constipation 09/15/24 09/15/24 Unknown History (Dulcolax (bisacodyl)) scopolamine base 1 mg over 3 days 1 patch transdermal Q72H 09/15/24 09/15/24 Unknown History transdermal patch Allergies Allergy/AdvReac Type Severity Reaction Status Date / Time Sulfa (Sulfonamide Allergy Mild Rash Verified 09/30/24 11:32 Antibiotics) Penicillins Allergy Unknown SWELLING Verified 09/30/24 11:32 codeine AdvReac Mild N/V Verified 09/30/24 11:32 hydrocodone AdvReac Mild N/V Verified 09/30/24 11:32 oxycodone (From OxyContin) AdvReac Mild Nausea Verified 09/30/24 11:32 tramadol AdvReac Mild Nausea Verified 09/30/24 11:32 Review of Systems 2 Review of Systems: All systems reviewed & are unremarkable except as noted in HPI and below Constitutional: Constitutional: Reports no additional constitutional complaints Cardiovascular: Cardiovascular: Reports no additional cardiovascular complaints Respiratory: Respiratory: Reports no additional respiratory complaints Gastrointestinal: Gastrointestinal: Reports no additional gastrointestinal complaints Musculoskeletal: Musculoskeletal: Reports no additional musculoskeletal complaints [facility] Past Medical History Medical History (Updated 09/30/24 @ 17:16 by Josh Tapia MD) Constipation Stercoral ulcer of rectum Fecal impaction Proctitis Hyponatremia Self-care deficit Peripheral vascular disease Morbid obesity with body mass index (BMI) of 40.0 or higher Neuropathic pain Gout Sepsis Chronic acquired lymphedema Chronic anemia Obstructive sleep apnea Atrial fibrillation Lymphedema of both lower extremities Environmental allergies Ocular rosacea Rosacea Chronic low back pain Chronic venous insufficiency GERD without esophagitis Chronic congestive heart failure Echocardiogram in May 2021 was technically difficult and showed normal LV systolic function with an EF of 60 to 65%, severely enlarged RV chamber with moderate to severely reduced RV systolic function, severe biatrial enlargement, and moderate pulmonary hypertension. Dyslipidemia Essential (primary) hypertension Peripheral polyneuropathy Hypothyroidism Surgical History Surgical History S/P BKA (below knee amputation) 08/25/24 Right below-knee amputation Dr. Malone History of carpal tunnel release History of thoracic surgery Pericardial effusion s/p pericardial window thought secondary to minoxidil, in 2010 at [facility]. H/O eye surgery (~2005) [id number] [facility] History of foot surgery Left Foot History of cholecystectomy (2008) History of rotator cuff surgery Bilateral. History of discectomy (2012) Family History Family History Father Cardiovascular disease Grandparent Cancer Mother COPD (chronic obstructive pulmonary disease) Social History Social History Social History: Surrogate medical decision maker: Shyla Hurst, daughter. Code status: Full code. Caffeine-decalf coffee, diet soda Smoking packs per day: 2 Smoking cigarettes per day: 40.0 Years smoked: 20 Smoking pack-years: 40.00 Smoking status: Former smoker Second hand tobacco smoke exposure: No Additional smoking assessment comments: 1979 Alcohol intake: never Alcohol use details: One beer daily. Substance use: never Substance use type: does not use Do You Feel Safe in your Home?: Yes Lack of Transportation: No Lack of Food: Never True Current Housing: I Have Housing Concerned About Future Housing: No Difficulty Paying Gas/Electric Bills: No Difficulty Paying for Meds: No Currently Unemployed: No Education: Associate Degree Difficulty w/ Childcare or Family Care: No Living arrangements: alone Additional living arrangements comments: Lives in own home in [place]. Uses a motorized scooter and transfers with slide board. Occupation/Education: retired Additional occupation/education comments: Retired. 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 Spiritual care concerns: No Exam 2 Narrative: GENERAL: Well-appearing, well-nourished, and in no acute distress. HEAD: Normocephalic, atraumatic. ENT: Mucous membranes moist. NECK: Supple. CHEST: Clear to auscultation. No respiratory distress. HEART: Regular rate and rhythm. Normal peripheral pulses. ABDOMEN: Soft, diffuse abdominal tenderness with voluntary guarding, nondistended. EXTREMITIES: Normal range of motion. Right BKA. SKIN: Warm, dry, no rash. NEURO: Alert and oriented x3. PSYCH: Normal mood and affect. Course Course Emergency Course: 1554: Discussed case with GI on-call. I have already tried manual disimpaction and 1 soapsuds enema. Recommends additional soapsuds enema in the MiraLax q.3 hours until this impaction is past. Patient seems to have discomfort at his rectum that causes some his issues with having a bowel movement. 1645: Before the 2nd enema patient passed a large firm piece of stool and he feels much better. He will be discharged back to his facility. Reports he will now it here to his MiraLax regimen that is previously prescribed that he did not realize was there. Vital Signs Vital signs: Vital Signs Temperature 98.3 F 09/30/24 12:36 Pulse Rate 78 09/30/24 12:36 Respiratory Rate 16 09/30/24 12:36 Blood Pressure 114/73 09/30/24 12:36 Pulse Oximetry 100 09/30/24 12:36 Temperature 98.3 F 09/30/24 12:36 Pulse Rate 76 09/30/24 15:54 Respiratory Rate 18 09/30/24 15:54 Blood Pressure 128/65 09/30/24 15:54 Pulse Oximetry 100 09/30/24 15:54 Medical Decision Making Vital Signs Vital Signs: Vital Signs Temperature 98.3 F 09/30/24 12:36 Pulse Rate 78 09/30/24 12:36 Respiratory Rate 16 09/30/24 12:36 Blood Pressure 114/73 09/30/24 12:36 Pulse Oximetry 100 09/30/24 12:36 Temperature 98.3 F 09/30/24 12:36 Pulse Rate 76 09/30/24 15:54 Respiratory Rate 18 09/30/24 15:54 Blood Pressure 128/65 09/30/24 15:54 Pulse Oximetry 100 09/30/24 15:54 Lab Data 09/30/24 13:50 09/30/24 13:50 Labs: Lab Results 09/30/24 Range/Units 13:50 WBC 11.8 H (4.5-10.0) K/mm3 RBC 3.99 L (4.6-6.20) M/mm3 Hgb 10.2 L (14.0-18.0) g/dL Hct 35.1 L (42.0-52.0) % MCV 88.0 (80-100) fl MCH 25.6 L (26-34) pg MCHC 29.1 L (32-36) g/dl RDW 17.3 H (11.5-14.5) % Plt Count 346 (150-375) k/mm3 MPV 10.6 H (7.4-10.4) fl Immature Gran % (Auto) 0.8 H (0-0.5) % Neut % (Auto) 86.9 H (45.5-73.1) % Lymph % (Auto) 4.7 L (18.3-44.2) % Rooks % (Auto) 5.2 (2.6-8.5) % Eos % (Auto) 1.9 (0-4.4) % Baso % (Auto) 0.5 (0.2-1.2) % Lymph # (Auto) 0.56 L (0.9-3.2) K/mm3 Rooks # (Auto) 0.6 (0.1-0.6) K/mm3 Eos # (Auto) 0.2 (0-0.3) K/mm3 Baso # (Auto) 0.1 (0.0-0.1) K/mm3 Abs Immat Gran (auto) 0.09 H (0.00-0.031) K/mm3 Absolute Neuts (auto) 10.3 H (1.3-6.7) K/mm3 Absolute Nucleated RBC 0.000 (0.0-0.012) K/mm3 Band Neutrophils % 0 (0-6) % Nucleated RBC % 0.0 (0.0-0.2) % Platelet Estimate Adequate (Adequate) Hypochromasia 1+ Anisocytosis 2+ Schistocytes None seen Sodium 136 L (137-145) mmol/L Potassium 4.6 (3.4-5.0) mmol/L Chloride 102 (98-107) mmol/L Carbon Dioxide 22 (22-30) mmol/L Anion Gap 12 (4-12) mmol/L BUN 48 H (9-20) mg/dL Creatinine 2.14 H (0.7-1.3) mg/dL Estim Creat Clear Calc 38 ml/min Estimated GFR 30 L (59 - ) Glucose 110 (65-110) mg/dL Calcium 9.6 (8.4-10.2) mg/dL Total Bilirubin 0.3 (0.2-1.3) mg/dL AST 18 (17-59) U/L ALT 12 (6-50) U/L Alkaline Phosphatase 53 (38-126) U/L Total Protein 7.2 (6.3-8.2) g/dL Albumin 4.2 (3.5-5.1) g/dL Lipase 271 (23-300) U/L Discharge Plan Discharge Clinical Impression: Constipation Patient Disposition: Home Condition: Stable Instructions: Constipation (ED) Additional Instructions: Return ER if you have severe abdominal pain, you cannot pass stool/gas, or have additional concerns. Patient Language: Urdu Prescriptions: No Action loratadine [Claritin] 10 mg tablet 10 mg PO DAILY PRN (Reason: allergy symptoms) fluticasone propionate [Flonase Allergy Relief] 50 mcg/actuation spray,suspension 1 spray intranasal DAILY Rx Instructions: administer into each nostril Eliquis 5 mg tablet 5 mg PO Q12HR Qty: 180 1RF Patient Comments: metoprolol tartrate 50 mg tablet 50 mg PO Q12HR Qty: 180 1RF acetazolamide 250 mg tablet 250 mg PO DAILY calcitriol 0.25 mcg capsule 0.25 mcg PO 3XW Qty: 36 3RF Rx Instructions: take on Saturday, Saturday, Fridays minoxidil 2.5 mg tablet 2.5 mg PO DAILY potassium chloride 10 mEq capsule, extended release 10 meq PO DAILY famotidine 20 mg tablet 20 mg PO BID Qty: 180 3RF levothyroxine 200 mcg tablet 200 mcg PO DAILY Qty: 90 1RF tamsulosin 0.4 mg capsule 0.4 mg PO QAM Qty: 90 3RF allopurinol 100 mg tablet 100 mg PO DAILY Qty: 10 0RF Minerin Creme Cream 1 applic topical BID Qty: 113 0RF Rx Instructions: Apply to jackie lower legs acetaminophen 500 mg capsule 500 mg PO Q6H PRN (Reason: fever or pain) bisacodyl [Dulcolax (bisacodyl)] 10 mg suppository 10 mg RECTAL DAILY PRN (Reason: constipation) scopolamine base 1 mg over 3 days patch 3 day 1 patch transdermal Q72H cefdinir 300 mg capsule 300 mg PO Q12H 5 Days Qty: 10 0RF metronidazole 500 mg tablet 500 mg PO Q8H 5 Days Qty: 15 0RF ferrous sulfate 325 mg (65 mg iron) tablet,delayed release (DR/EC) 325 mg PO DAILY 30 Days Qty: 30 0RF polyethylene glycol 3350 [Miralax] 17 gram/dose Powder 17 g PO DAILY PRN (Reason: Constipation) docusate sodium 100 mg Capsule 100 mg PO Q12H PRN (Reason: constipation) gabapentin 300 mg capsule 300 mg PO TID Qty: 270 1RF bumetanide 1 mg tablet See Rx Instructions .ROUTE .COMPLEX Qty: 270 3RF Dose Instruction: TAKE 1 TABLET BY MOUTH 3 TIMES DAILY Rx Instructions: TAKE 1 TABLET BY MOUTH 3 TIMES DAILY spironolactone 25 mg tablet 25 mg PO DAILY Qty: 30 0RF Follow-up/Referrals: Lilliana Tomas, [facility] [Primary Care Provider] - 1 Week
[2024-09-30 14:24] LABS: Alanine Aminotransferase 12 U/L (6-50); Albumin Level 4.2 g/dL (3.5-5.1); Alkaline Phosphatase 53 U/L (38-126); Anion Gap 12 mmol/L (4-12); Aspartate Amino Transferase 18 U/L (17-59); Bilirubin,Total 0.3 mg/dL (0.2-1.3); Blood Urea Nitrogen 48 mg/dL (9-20); Calcium 9.6 mg/dL (8.4-10.2); Carbon Dioxide 22 mmol/L (22-30); Chloride 102 mmol/L (98-107); Estimated CRCL calculation 38 ml/min; Estimated Glomerular Filt Rate 30; Glucose 110 mg/dL (65-110); Lipase 271 U/L (23-300); Potassium 4.6 mmol/L (3.4-5.0); Sodium 136 mmol/L (137-145); Total Protein 7.2 g/dL (6.3-8.2)
[2024-09-30 14:25] LABS: Hypochromasia 1+
[2024-09-30 14:26] LABS: Anisocytosis 2+; Band Neutrophils Percent 0 % (0-6)
[2024-09-30 14:29] LABS: Schistocytes None Seen
[2024-09-30 15:54] VITALS: BP 128/65; PULSE 76; RESP 18; O2SAT 100
--- NOTE | 2024-09-30 21:09 | PC.NURSE ---
per transmitter engineer in charge. pt will be transported by ems to [facility] and [facility] will be contacted to bead picker pt mechanical wheelchair tomorrow. Per ems, they are unable to transport his wheelchair and him at the same time
== END 2024-09-30 21:30 | disposition home or self-care (01) ==
PROVIDERS: Emergency Provider Emergency Medicine; PCP Nurse Practitioner Family
DX: K59.00 Constipation, unspecified (principal); I73.9 Peripheral vascular disease, unspecified; I89.0 Lymphedema, not elsewhere classified; I48.91 Unspecified atrial fibrillation; I87.2 Venous insufficiency (chronic) (peripheral); I50.9 Heart failure, unspecified; I11.0 Hypertensive heart disease with heart failure; E78.5 Hyperlipidemia, unspecified; E03.9 Hypothyroidism, unspecified; E66.01 Morbid (severe) obesity due to excess calories; Z68.33 Body mass index [BMI] 33.0-33.9, adult; K21.9 Gastro-esophageal reflux disease without esophagitis; G47.33 Obstructive sleep apnea (adult) (pediatric); G62.9 Polyneuropathy, unspecified; M10.9 Gout, unspecified; Z87.891 Personal history of nicotine dependence; Z89.511 Acquired absence of right leg below knee; Z90.49 Acquired absence of other specified parts of digestive tract; Z79.01 Long term (current) use of anticoagulants; Z79.899 Other long term (current) drug therapy
CPT/HCPCS: 36415; 74176; 80053; 83690; 85025; 99284

== ENCOUNTER 2024-12-17 12:46 | Inpatient (IN) | payer MEDICARE, SELFPAY ==
[2024-12-17] VITALS (13 sets, daily range): BP systolic 105–116; BP diastolic 42–52; PULSE 77–80; RESP 18–22; TEMP 36.3–36.7; O2SAT 96–100; BMI 44.9
--- NOTE | 2024-12-17 | ECHO_ITS ---
Patient Info Name: Irwin Cyr Age: 74 years : 1950 Gender: Male Ht: 73 in Wt: 347 lbs BSA: 2.92 m2 HR: 80 bpm BP: 115 / 52 mmHg Heart Rhythm: Indeterminant Technical Quality: Fair Exam Date: 12/17/2024 4:31 PM Patient Status: O Admit Date: 12/17/2024 Exam Type: CA echo dop color flow w con Complete two-dimensional, color flow and Doppler transthoracic echocardiogram is performed with contrast to opacify the left ventricle and to improve the deliniation of the left ventricle endocardial borders. Staff Referring Physician: Carlos Marte Flat Sheet Maker: Anibal Morrow III Attending Provider: Kathleen Manriquez Contrast/Agitated Saline Contrast/Ag. Saline: Definity Amount: 2.00 ml Administered By: Anibal Morrow III Existing IV Access: Yes IV Access Condition: patent with no signs of infiltration Summary 1. Left ventricular chamber dimension is normal. 2. Left ventricular systolic function is normal, estimated at 65-70. 3. There is mildly increased left ventricular wall thickness. 4. The left ventricular diastolic function is abnormal. 5. Right ventricular chamber dimension is severely enlarged. 6. Right ventricular systolic function is reduced. 7. 'D-shaped' septum consistent with right ventricular pressure and volume overload. 8. Left atrial chamber dimension is moderately enlarged. 9. Right atrial chamber dimension is moderately enlarged. 10. There is mild mitral valve regurgitation. 11. The mitral valve annulus is moderately calcified. 12. There is mild tricuspid valve regurgitation. 13. Mild pulmonary hypertension, estimated pulmonary arterial systolic pressure is 40 mmHg. Left Ventricle Left ventricular chamber dimension is normal. Left ventricular systolic function is normal, estimated at 65-70. There is mildly increased left ventricular wall thickness. The left ventricular diastolic function is abnormal. Right Ventricle Right ventricular chamber dimension is severely enlarged. Right ventricular systolic function is reduced. 'D-shaped' septum consistent with right ventricular pressure and volume overload. Left Atria Left atrial chamber dimension is moderately enlarged. Right Atria Right atrial chamber dimension is moderately enlarged. Atrial Septum Intact interatrial septum visualized by color flow imaging. Aortic Valve The aortic valve is trileaflet. There is mild aortic valve sclerosis. There is no aortic valve stenosis. There is trace aortic valve regurgitation. Pulmonic Valve The pulmonic valve is normal. There is no pulmonic valve stenosis. There is trace pulmonic regurgitation. Mitral Valve There is no mitral valve stenosis. There is mild mitral valve regurgitation. The mitral valve annulus is moderately calcified. Tricuspid Valve The tricuspid valve leaflets are normal. There is no significant tricuspid valve stenosis. There is mild tricuspid valve regurgitation. Mild pulmonary hypertension, estimated pulmonary arterial systolic pressure is 40 mmHg. Pericardium/Pleural The pericardium appears normal. There is no pericardial effusion. Inferior Vena Cava Dilated inferior vena cava with <50% collapse upon inspiration consistent with elevated right atrial pressure, 15 mmHg. Aorta The aortic root size at the sinus of Valsalva is normal. There is mild aortic atherosclerosis. Left Ventricular Outflow Tract Name Value Normal LVOT 2D LVOT Diameter 2.2 cm LVOT Doppler LVOT Peak Velocity 97 cm/s LVOT Peak Gradient 4 mmHg LVOT Mean Gradient 2 mmHg LVOT VTI 18 cm LVOT VTI/AV VTI Ratio 0.9 LVOT Stroke Volume 69 ml LVOT CO 14.0 l/min LVOT CI 4.8 l/min/m2 Pulmonic Valve Name Value Normal PV Doppler PV Peak Velocity 133 cm/s PV Peak Gradient 7 mmHg PV Mean Gradient 3 mmHg Mitral Valve Name Value Normal MV Doppler MV Peak Gradient 6 mmHg MV Mean Gradient 2 mmHg MV Area (Cont Eq VTI) 2.4 cm2 MV Diastolic Function MV E Peak Velocity 141 cm/s MV Decel Time (PW) 190 ms Tricuspid Valve Name Value Normal Estimated PAP/RSVP RA Pressure 15 mmHg <=5 PA Systolic Pressure 40 mmHg <36 Aortic Valve Name Value Normal AV Doppler AV Peak Velocity 147 cm/s AV Peak Gradient 9 mmHg AV Mean Gradient 3 mmHg AV VTI 20 cm AV Area (Cont Eq VTI) 3.5 cm2 >=3.0 AV Area (Cont Eq Leo) 2.6 cm2 AV DI (Leo) 0.66 AV Regurgitation 2D LVOT Area 3.9 cm2 Ventricles Name Value Normal LV Dimensions 2D/MM IVS Diastolic Thickness (2D) 1.0 cm 0.6-1.0 LVID Diastole (2D) 5.9 cm 4.2-5.8 LVIW Diastolic Thickness (2D) 1.0 cm 0.6-1.0 LVID Systole (2D) 3.8 cm 2.5-4.0 LVOT Diameter 2.2 cm LV Mass (2D Cubed) 247.12 g 88.00-224.00 LV Mass Index (2D Cubed) 85 g/m2 49-115 Relative Wall Thickness (2D) 0.35 <=0.42 LV Fractional Shortening/Ejection Fraction 2D/MM LV Fractional Shortening (2D) 36 % 25-43 LV EF (2D Teichholz) 64 % Atria Name Value Normal LA Dimensions LA Volume (4C A-L) 189 ml RA Dimensions RA Systolic Major George Length (4C) 8.6 cm 2.1-2.7 RA Area (4C) 44.2 cm2 <=18.0 Report Signatures
--- NOTE | ~2024-12-17 | XR_ITS ---
Examination: XR chest 1V portable Clinical History: SOB Comparison: 09/19/2024 Technique: Portable AP Findings: Heart size normal. Hazy right basilar opacity. No acute bony abnormality. IMPRESSION: 1. Right pleural effusion with associated basilar atelectasis and/or airspace disease. Reviewed, dictated and finalized at location R.
--- NOTE | ~2024-12-17 | US_ITS ---
LEFT LOWER EXTREMITY VENOUS DUPLEX Clinical History: leg swelling COMPARISON: None TECHNIQUE: Grayscale, color, duplex/spectral Doppler sonography left leg FINDINGS: Left leg common femoral, femoral, popliteal, and calf veins compressible and color Doppler patent. Normal augmentation with distal compression. No internal echoes. IMPRESSION: 1. No left leg DVT. Reviewed, dictated and finalized at location R. IMPRESSION: 1. No left leg DVT.
--- NOTE | ~2024-12-17 | US_ITS ---
EXAMINATION: US abdomen complete, 12/21/2024 16:00 CDT HISTORY: Pain COMPARISON: None Technique: Quinn-scale and color Doppler images were obtained. Findings: LIVER: Moderate increased echogenicity of the liver. . GALLBLADDER/BILIARY: Unremarkable.No cholelithiais, wall thickening or pericholecystic fluid. No biliary dilatation. CBD not clearly identified due to bowel gas. Delmar sign negative. PANCREAS: Pancreas limited by bowel gas. SPLEEN: Spleen measures 15.6 cm.. KIDNEYS: Right Kidney: Right kidney 10.1 x 4.6 x 4.2 cm, normal. Left Kidney: Left kidney 11.6 x 5.8 x 4.8 cm, normal. AORTA: Normal caliber aorta. IVC: Unremarkable. FREE FLUID: None. Impression: 1. Limited study. 2. Mild hepatic steatosis versus hepatocellular disease. Mild splenomegaly. MRI suggested to further evaluate. Reviewed, dictated and finalized at location A. Impression: 1. Limited study. 2. Mild hepatic steatosis versus hepatocellular disease. Mild splenomegaly. MRI suggested to further evaluate.
--- OUTSIDE RECORDS SUMMARY | 2024-12-17 12:57 | XMS_ITS | Clinical Summary ---
Author Organization [facility] [employer] Address [address] [place] [address] Care Team Providers Care Ammunition Assembly I Laborer Name Role Phone Taco Ho MD Primary Care Provider Source Comments [facility] Affiliates and Associated Physician Practices is amultiple site organization consisting of ambulatory clinics and hospital sitesin [place], [place], [place] and [place]. This disclosure is being madepursuant to the Care Everywhere program and may not contain all information available regarding this patient. Last updated 17.[facility] [employer] Allergies Active Allergy Reactions Criticality Noted Date [...] fluticasone propionate (FLONASE) 50 MCG/ACT nasal spray [place] 1 spray into the nose once daily [...] on file Legal Sex Male 6:27 AM WEAVER TIRE CORD Gender Identity Not on file Sexual Orientation [...] 1999 ZOSTER VACCINE (1 of 2) 1999 Respiratory Syncytial Virus (RSV) Vaccine Pt: or over 60 yrs (1 - 1-dose 75+ series) 02/09/2024 DEPRESSION SCREENING 04/01/2024 COVID-19 VACCINE (1 - 2023-2 5 season) 2024 INFLUENZA VACCINE (#1) 2024 0, 06/14/2014 HEPATITIS C SCREENING Completed 07/28/2021 HEPATITIS [...] this topic Medical Devices Implanted Type Area Hydrogen Operator Device Identifier Shelf Expiration Date Model / Serial / Lot Biomet Polyax Proximal Tibial/Distal Femoral Locking Plating System 5.5mm Ft Polyu Locking Screws Implanted:Qty: 2 on 08/02/2021 by Anibal Pressley DO at [facility] Right: Femur [id number] / / Biomet Polyax Proximal Tibial/Distal Femoral Locking Plating System 8.0mm Cannulated Locking Screw Implanted:Qty: 1 on 08/02/2021 by Anibal Pressley DO at [facility] Right: [employer] [id number] / / Biomet Polyax Proximal Tibial/Distal Femoral Locking Plating System 4.5mm Solid Cortical Bone Screw, Ft Implanted:Qty: 2 on 08/02/2021 by Anibal Pressley DO at [facility] Right: Femur [id number] / / Biomet Polyax Proximal Tibial/Distal Femoral Locking Plating System 5.5mm Ft Polyu Locking Screws Implanted:Qty: 1 on 08/02/2021 by Anibal Pressley DO at [facility] Right: Femur [id number] / / Biomet Polyax Proximal Tibial/Distal Femoral Locking Plating System 5.5mm Ft Polyu Locking Screws Implanted:Qty: 1 on 08/02/2021 by Anibal Pressley DO at [facility] Right: Femur [id number] / / Wire K 1.6mm 6in Hlf Bynt Pnt Ss Fx Implanted:Qty: 2 on 08/02/2021 by Anibal Pressley DO at [facility] [employer] [id number] / / Screw 3.5mm 5mm 60mm Ft Rvrs Cut Flut Implanted:Qty: 1 on 08/02/2021 by Anibal Pressley DO at [facility] Right: Femur [employer] [id number] / / Screw 3.5mm 5mm 80mm Ft Rvrs Cut Flut Implanted:Qty: 1 on 08/02/2021 by Anibal Pressley DO at [facility] Right: Femur [employer] [id number] / / Plate 9 Hl Lck Precontr Fem Rt Dist Implanted:Qty: 1 on 08/02/2021 by Anibal Pressley DO at [facility] Right: Femur [employer] [id number] / / Screw 3.5mm 5mm 85mm Ft Rvrs Cut Flut Implanted:Qty: 1 on 08/02/2021 by Anibal Pressley DO at [facility] Right: Femur [employer] [id number] / / Screw 3.5mm 5mm 90mm Ft Rvrs Cut Flut Implanted:Qty: 1 on 08/02/2021 by Anibal Pressley DO at [facility] Right: Femur [employer] [id number] / / Biomet Polyax Proximal Tibiasl/Distal Femoral Lociking Plating System 5.5 Mm Ft Poly Locking Screw Implanted:Qty: 2 on 08/02/2021 by Anibal Pressley DO at [facility] Right: Femur [employer] [id number] / / Biomet Polyax Proximal Tibial/Diatal Femoral Locking Plating System 4.5mm Solid Cortical Bone Screw, Ft Implanted:Qty: 1 on 08/02/2021 by Anibal Pressley DO at [facility] Right: Femur [employer] [id number] / / Explanted Type Area Hydrogen Operator Device Identifier Shelf Expiration Date Model / Serial / Lot Wire K 2mm 228mm Troc Pnt Ss Prlc Plate Explanted:Qty: 2 on 08/02/2021 at [facility] Right: Femur [employer] 01/13/2031 [id number] / / [id number] Biomet Polyax Proximal Tibial/Distal Femoral Locking Plating System 5.5mm Ft Polyu Locking Screws Explanted:Qty: 2 on 08/02/2021 by Anibal Pressley DO at [facility] Right: Femur [id number] / / Biomet Polyax Proximal Tibial/Distal Femoral Locking Plating System 5.5mm Ft Polyu Locking Screws Explanted:Qty: 2 on 08/02/2021 by Anibal Pressley DO at [facility] Right: Femur [id number] / / Gd Pin Orth 3.2mm Polyax Fem Clbrt Lck Explanted:Qty: 1 on 08/02/2021 at [facility] [employer] [id number] / / Wshr Orth Ss 3.5-4 Mm Cecilia Screw Nonster Explanted:Qty: 3 on 08/02/2021 at [facility] [employer] [id number] / / Screw 3.5mm 5mm 85mm Ft Rvrs Cut Flut Explanted:Qty: 1 on 08/02/2021 by Anibal Pressley DO at [facility] Right: Femur [employer] [id number] / / Procedures Procedure Name Priority Date/Time Associated Diagnosis Comments HEPATITIS C AB SCREEN RFLX NAAT QUANT STAT 07/28/2021 1:43 PM CDT from Last 3 Months or Most Recently Relevant to Health Maintenance Results * HEPATITIS C AB SCREEN RFLX NAAT QUANT (07/28/2021 1:43 PM CDT) Hepatitis C Antibody Non-react oma Non-reac tive 07/28/2021 2:31 PM CDT [facility] Comment:Hepatitis [...] MD LAB - CHEMISTRY ORDERABLES nal Result [facility] [address] [place] [phone], [facility] [phone] from Last 3 Months or Most Recently Relevant to Health Maintenance Insurance MEDICARE [facility] [place] [address] ANTH SELF PAY NO INSURANCE Member Subscriber Plan / Payer (Ef fective for All Dates) Name:Irwin Cyr Jr. Member ID:Not on file Relation to Subscriber:Not on file Name:IRWIN CYR JR. Subscriber ID:Not on file (Home) Address: [address] [place] [id number] Payer ID:Not on file Group ID:Not on file Type:Self Pay Address: [place], [place] MEDICARE Advance Directives * Full Code (Latest Code Status on File) Date Activated Date Inactivated Comments 07/29/2021 1:11 AM 08/11/2021 10:19 PM Care Teams Ammunition Assembly I Laborer Relationship Specialty Start Date End Date Taco Ho MD [address] [place] [address] PCP - General 08/07/21
--- OUTSIDE RECORDS SUMMARY | 2024-12-17 12:57 | XMS_ITS | Clinical Summary ---
Author Organization [facility] Address [address] [place] [address] Care Team Providers Care Guest Services Attendant Name Role Phone Taco Ho MD Primary Care Provider [phone] Social History Tobacco Use Types Packs/Day Years Used Date Smoking Tobacco: Never Assessed Sex and Gender Information Value Date Recorded Sex Assigned at Not on file Legal Sex Male 7:28 PM CDT Gender Identity Not on file Sexual Orientation Not on file Last Filed Vital Signs Vital Sign Reading Time Taken Comments Blood Pressure 132/76 05/05/2013 11:08 AM SWAGE TENDER Pulse 80 05/05/2013 11:08 AM SWAGE TENDER Temperature - - Respiratory Rate - - Oxygen Saturation - - Inhaled Oxygen Concentration - - Weight 154.2 kg (340 lb) 05/05/2013 11:08 AM SWAGE TENDER Height 185.4 cm (6' 1) 05/05/2013 11:08 AM SWAGE TENDER Body Mass Index 44.86 05/05/2013 11:08 AM SWAGE TENDER Plan of Treatment Health Maintenance Due Date Last Done Comments Colorectal Cancer Screening Colonoscopy (10 Years) 1949 Hepatitis C 1967 DTaP, Tdap and Td Vaccines ( 1 - Tdap) 02/09/1968 Pneumococcal Vaccine: 50+ Ye ars (1 of 1 - PCV) 1999 Zoster Vaccines (1 of 2) 1999 RSV Immunization or 60+ Years (1 - 1-dose 75+ series) 02/09/2024 COVID-19 Vaccine ( - 2023-2 5 season) 2024 Meningococcal B Vaccine Aged Out No l onger eligible based on patient's age to complete this topic Meningococcal Vaccine Aged Out No naresh jovanny eligible based on patient's age to complete this topic RSV Immunizations Under 20 Months Aged Out No longer eligible based on patient's age to complete this topic Care Teams Guest Services Attendant Relationship Specialty Start Date End Date Taco Ho MD [address] [place] [address] PCP - General 10/24/12
--- OUTSIDE RECORDS SUMMARY | 2024-12-17 12:57 | XMS_ITS | Encounter Summary ---
Author Organization [facility] Address [address] [place] [address] Care Team Providers Care Warp Spooler Name Role Phone Taco Ho MD Primary Care Provider [phone] Encounter Details Date Type Department Care Team (Latest Contact Info) Description 02/04/[address] [facility] , Milla Gaspar MD Social [...] on filedocumented in this encounter Care Teams Warp Spooler Relationship Specialty Start Date End Date Taco Ho MD [address] [place] [address] PCP - General 10/24/12 documented as of this encounter
--- OUTSIDE RECORDS SUMMARY | 2024-12-17 12:57 | XMS_ITS | Encounter Summary ---
Author Organization [facility] [employer] Address [address], [place] [address] Phone Care Team Providers Care Slubber Machine Operator Name Role Phone Alicia Malcolm MD Primary Care Provider Encounter Details Date Type Department Care Team (Late st Contact Info) Description 09/17/2019 Telephone [facility] Nephrology and Hypertension [address] [facility], [address] [facility] [place] [address] Jacquie Al MA Social History Tobacco Use [...] on filedocumented in this encounter Care Teams Slubber Machine Operator Relationship Specialty Start Date End Date Alicia Malcolm MD [address] [place] [address] PCP - General Internal Medicine 08/05/18 documented as of this encounter
--- OUTSIDE RECORDS SUMMARY | 2024-12-17 12:57 | XMS_ITS | Encounter Summary ---
Author Organization [facility] [employer] Address [address] [address] Phone Care Team Providers Care Business Coordinator Name Role Phone Alicia Malcolm MD Primary Care Provider Reason for Visit * Reason Comments Med Refill Encounter Details Date Type Department Care Team (Late st Contact Info) Description 02/23/2019 Refill [facility] Nephrology and Hypertension [address] [place] [address], [address] [place], [place] [id number] Chester Longo MD [address] [facility] [place] [address] Social History Tobacco Use Types Packs/Day Years [...] on filedocumented in this encounter Care Teams Business Coordinator Relationship Specialty Start Date End Date Alicia Malcolm MD [address] [place] [address] PCP - General Internal Medicine 08/05/18 documented as of this encounter
--- OUTSIDE RECORDS SUMMARY | 2024-12-17 12:57 | XMS_ITS | Clinical Summary ---
Author Organization [facility] Address [address], [place] [address] Phone Care Team Providers Care Director Cardiology Name Role Phone Alicia Malcolm MD Primary Care Provider Allergies Active Allergy Reactions Criticality Noted Date Comments Codeine Nausea Only Low Other reaction(s): Vomiting Hydrocodone Nausea Only,Other (s ee comments) Low Penicillins Hives,Rash Medium Sulfa Antibiotics Rash Medium Medications omeprazole (PRILOSEC) [address] capsule 1 tab qday 2 Active ergocalciferol (VITAMIN D-2) 00597 units capsule 1 tab/cap every week for [...] Date Last Done Comments Influenza Vaccine (#1) 2024 06/14/2014 Pneumococcal PPSV23/PCV13 65 + Years / Low and Medium Risk Completed 01/12/2020, 01/21/2019 Insurance MEDICARE RAILROAD [facility] MEDICARE SUPPLEMENT Care Teams Director Cardiology Relationship Specialty Start Date End Date Alicia Malcolm MD [address] [place] [address] PCP - General Internal Medicine 08/05/18
--- OUTSIDE RECORDS SUMMARY | 2024-12-17 12:57 | XMS_ITS | Clinical Summary ---
Author Organization [facility] [address] Address [address] [place] [address] Care Team Providers Care End Frazer Name Role Phone Alicia Malcolm MD Primary [...] TIMES DAILY 810 tablet 3 3 Active spironolactone (ALDACTONE) 25 mg tablet Take 1 tablet (25 mg total) by mouth daily 90 tablet 2 3 02/20/20 25 Active polyethylene glycol (MIRALAX) 17 gram/dose bulk powder Take 17 g by mouth daily Active allopurinoL (ZYLOPRIM) 100 mg tablet Take 1 tablet (100 mg total) by mouth daily Active calcitRIOL (ROCALTROL) 1 mcg/mL solution Take by mouth daily Active docusate sodium (COLACE) 100 mg capsuleIndicat ions:constipat ion Take 1 capsule (100 mg total) by [...] MOUTH DAILY 90 tablet 3 5 Active Eliquis 5 mg tablet Take 1 tablet (5 mg total) by mouth 2 (two) times a day 180 tablet 5 Active furosemide (LASIX) 40 mg tablet Take 1 tablet (40 mg total) by mouth daily Active metoprolol tartrate (LOPRESSOR) 50 mg immediate release tablet Take 1 tablet (50 mg total) by mouth every 12 (twelve) hours 180 tablet 3 5 Active metoprolol tartrate (LOPRESSOR) 50 mg immediate release tablet TAKE 1 TABLET BY MOUTH EVERY 12 HOURS 180 tablet 3 4 12/12/19 25 Discontinu ed(Reorder ) Active Problems Problem Noted Date Diagnosed Date [...] 04/06/2023 Assessment & Plan (02/05/2024 11:38 AM SUPERVISOR PIPELINE): Venous insufficiency noted to both lower extremities [...] Encounters Date Type Department Care Team Description 12/11/2024 1:45 PM CDT Office Visit [facility] Cardiology at [address] [place] [address] Anirudh Wise MD 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) (Primary Dx); RBBB; Chronic heart failure with preserved ejection fraction; Need for lipid screening from Last 3 Months Medical History Medical [...] on file Legal Sex Male 1:10 PM SUPERVISOR PIPELINE Gender Identity Not on file Sexual Orientation Not on file Obstetrics History Last Filed Vital Signs Vital Sign Reading Time Taken Comments Blood Pressure 124/60 12/11/2024 1:40 PM CDT Pulse 79 12/11/2024 1:40 PM CDT Temperature 36.8 C (98.2 F) 12/25/2019 11:12 AM CDT Respiratory Rate 15 02/04/2020 11:41 AM SUPERVISOR PIPELINE Oxygen Saturation 91% 12/11/2024 1:40 PM CDT Inhaled Oxygen Concentration - - Weight 148.3 kg (327 lb) 08/12/2024 10:43 AM CDT Height 185.4 cm (6' 1) 12/11/2024 1:40 PM CDT Body Mass Index 43.14 08/12/2024 10:43 AM CDT Plan of Treatment Health Maintenance Due Date Last Done Comments Colon Cancer Screening-Colonoscopy 1950 Depression Screening 1950 Hepatitis C Screening 1950 DTaP/Tdap/Td Vaccine (1 - Tdap) 02/09/1960 Hepatitis B Screening 1967 Zoster Vaccine (1 of 2) 1999 Well Visit 65+ 2014 Fall Risk Assessment 02/03/2021 02/04/2020 Influenza Vaccine (#1) 2024 2, 01/12/2020, 01/12/2020, Additional history exists Pneumococcal vaccine 65+ Completed 01/12/2020, 12/31 Abdominal Aortic Aneurysm (A AA) Screen Completed 07/28/2021 Procedures Procedure Name Priority Date/Time Associated Diagnosis Comments POCT LIPID PANEL Routine 12/11/2024 2:08 PM CDT Need for lipid screening from Last 3 Months Results * (ABNORMAL) POCT lipid panel (12/11/2024 2:08 PM CDT) Cholesterol, POC 182 <200 MG/DL HDL, POC 26(A) >=40 mg/dL Triglycerides, POC 281(A) <=149 mg/dL LDL Cholesterol POC 99 <=129 mg/dL Chol/HDL Ratio, POC 7.0 NONE Non-HDL Cholesterol, POC 156 NONE mg/dL Cholesterol Total, POC 182 30 - 199 mg/dL Capillary blood 12/11/2024 2 :08 PM CDT Anirudh Wise MD POINT OF CARE TEST ORDER JOSÉ Final Result from Last 3 Months [place] [address] MEDICARE RAILROAD [facility] MEDICARE SUPPLEMENT Care Teams End Frazer Relationship Specialty Start Date End Date Alicia Malcolm MD [address] [facility] [address] [address] [place] [address] PCP - General Family Practice 05/14/24
--- OUTSIDE RECORDS SUMMARY | 2024-12-17 12:57 | XMS_ITS | Encounter Summary ---
Author Organization [facility] Address [address] [address] Phone Care Team Providers Care Ingot Caster Name Role Phone Alicia Malcolm MD Primary Care Provider Reason for Visit * Reason Comments Med Refill Encounter Details Date Type Department Care Team (Late st Contact Info) Description 05/25/2019 Refill [facility] Nephrology and Hypertension [address] [place] [address], [address] [place], [place] [id number] Chester Longo MD [address] [facility] [place] [address] Social History Tobacco Use Types Packs/Day Years [...] on filedocumented in this encounter Care Teams Ingot Caster Relationship Specialty Start Date End Date Alicia Malcolm MD [address] [place] [address] PCP - General Internal Medicine 08/05/18 documented as of this encounter
--- NOTE | 2024-12-17 13:05 | ECG_ITS ---
Test Date: 2024-12-17 13:35:23 Measurements Intervals Velva Rate: 78 P: 0 DE: 0 QRS: 262 QRSD: 186 T: 91 QT: 428 QTc: 488 Interpretive Statements UNCERTAIN IRREGULAR RHYTHM WITH PREMATURE VENTRICULAR COMPLEX MARKED RIGHT AXIS DEVIATION [QRS AXIS > 100] RIGHT BUNDLE BRANCH BLOCK [120+ ms QRS DURATION, UPRIGHT V1, 40+ ms S IN I/aVL/V4/V5/V6] POSSIBLE ANTERIOR MYOCARDIAL INFARCTION , OF INDETERMINATE AGE [30 ms Q WAVE IN V3/V4, OR R < 0.2 mV IN V4] ABNORMAL ECG Electronically Signed On 12-17-2024 17:56:59 CDT by Marcin Quiroga M.D.
--- NOTE | 2024-12-17 13:08 | ED.GENADULT ---
HPI - General Adult General Chief complaint: Shortness of Breath/Dyspnea Stated complaint: SOB Time Seen by Provider: 12/17/24 12:48 History of Present Illness HPI narrative: 74-year-old male presents to the emergency department for evaluation for worsening shortness of breath and left lower extremity edema. Patient does have a history of congestive heart failure does follow-up with Dr. Wise. Patient states over the course of the last few weeks he has had worsening left lower extremity edema and has been increasing his Lasix. Patient does have worsened scrotal edema and worsened exertional shortness of breath. Due to chronic infections patient did have BKA of the right extremity approximately 2 months ago. Related Data Home Medications ?Medication ?Instructions ?Recorded ?Confirmed ?Last Taken ?Type acetazolamide 250 mg tablet 250 mg PO DAILY 11/19/22 12/17/24 12/17/24 09:00 History minoxidil 2.5 mg tablet 2.5 mg PO DAILY 08/04/24 12/17/24 12/17/24 09:00 History acetaminophen 500 mg capsule 500 mg PO Q6H PRN fever or pain 09/15/24 12/17/24 12/16/24 History potassium chloride 10 mEq 10 meq PO DAILY 10/01/24 12/17/24 Unknown History capsule,extended release bumetanide 1 mg tablet 1 mg PO TID 10/21/24 12/17/24 12/17/24 09:00 History fluticasone propionate 50 1 spray intranasal DAILY PRN 10/21/24 12/17/24 Unknown History mcg/actuation nasal Congestion spray,suspension (Flonase Allergy Relief) levothyroxine 200 mcg tablet 200 mcg PO DAILY 10/21/24 12/17/24 12/17/24 09:00 History loratadine 10 mg tablet (Claritin) 10 mg PO DAILY allergy symptoms 10/21/24 12/17/24 12/17/24 09:00 History polyethylene glycol 3350 17 17 g PO DAILY PRN Constipation 10/21/24 12/17/24 12/16/24 09:00 History gram/dose oral powder (Miralax) metolazone 2.5 mg tablet 2.5 mg PO .COMPLEX 12/17/24 12/17/24 12/14/24 History Allergies Allergy/AdvReac Type Severity Reaction Status Date / Time Sulfa (Sulfonamide Allergy Mild Rash Verified 11/16/24 13:43 Antibiotics) Penicillins Allergy Unknown SWELLING Verified 11/16/24 13:43 codeine AdvReac Mild N/V Verified 11/16/24 13:43 hydrocodone AdvReac Mild N/V Verified 11/16/24 13:43 oxycodone (From OxyContin) AdvReac Mild Nausea Verified 11/16/24 13:43 tramadol AdvReac Mild Nausea Verified 11/16/24 13:43 Review of Systems Review of Systems: All systems reviewed & are unremarkable except as noted in HPI and below PMFSH Past Medical History Medical History Iron deficiency anemia Right foot infection s/p BKA(08/23) Venous stasis ulcer of right lower extremity Lymphedema due to chronic inflammation Constipation Stercoral ulcer of rectum Fecal impaction Proctitis Hyponatremia Peripheral vascular disease Morbid obesity with body mass index (BMI) of 40.0 or higher Neuropathic pain Gout Sepsis Chronic acquired lymphedema Chronic anemia Obstructive sleep apnea Atrial fibrillation Lymphedema of both lower extremities Environmental allergies Ocular rosacea Rosacea Chronic low back pain Chronic venous insufficiency GERD without esophagitis Chronic congestive heart failure Echocardiogram in May 2021 was technically difficult and showed normal LV systolic function with an EF of 60 to 65%, severely enlarged RV chamber with moderate to severely reduced RV systolic function, severe biatrial enlargement, and moderate pulmonary hypertension. Dyslipidemia Essential (primary) hypertension Peripheral polyneuropathy Hypothyroidism Surgical History Surgical History Hx of right BKA (~07/2024) S/P BKA (below knee amputation) 08/25/24 Right below-knee amputation Dr. Malone History of carpal tunnel release History of thoracic surgery Pericardial effusion s/p pericardial window thought secondary to minoxidil, in 2010 at [facility]. H/O eye surgery (~2005) [id number] [facility] History of foot surgery Left Foot History of cholecystectomy (2008) History of rotator cuff surgery Bilateral. History of discectomy (2012) Family History Family History Father Cardiovascular disease Grandparent Cancer Mother COPD (chronic obstructive pulmonary disease) Social History Social History Social History: Surrogate medical decision maker: Shyla Hurst, daughter. Code status: Full code. Caffeine-decalf coffee, diet soda Smoking packs per day: 2 Smoking cigarettes per day: 40.0 Years smoked: 20 Smoking pack-years: 40.00 Smoking status: Former smoker Second hand tobacco smoke exposure: No Additional smoking assessment comments: 1979 Alcohol intake: never Alcohol use details: One beer daily. Substance use: never Substance use type: does not use Do You Feel Safe in your Home?: Yes Lack of Transportation: No Lack of Food: Never True Current Housing: I Have Housing Concerned About Future Housing: No Difficulty Paying Gas/Electric Bills: No Difficulty Paying for Meds: No Currently Unemployed: No Education: Associate Degree Difficulty w/ Childcare or Family Care: No Living arrangements: alone Additional living arrangements comments: Lives in own home in [place]. Uses a motorized scooter and transfers with slide board. Occupation/Education: retired Additional occupation/education comments: Retired. 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 Spiritual care concerns: No Exam Narrative: APPEARANCE: Well appearing, no pain, no distress, well-nourished. HEAD: normocephalic, atraumatic. EYES: PERRLA/EOMI, conjunctivae clear. NOSE: Normal no drainage EARS:TMS clear with good light reflex. THROAT: Pharynx clear, no exudate. NECK: Supple. No adenopathy, no masses. RESPIRATORY: Airway patent, respirations nonlabored. Clear to auscultation bilaterally, no rales, rhonchi, wheezing. CARDIOVASCULAR: Regular rate and rhythm without murmurs rubs or gallops. ABDOMINAL: Soft, nontender, nondistended, normal bowel sounds MUSCULOSKELETAL: Well-appearing stop on right leg, edema of left lower extremity NEURO: Alert. Cranial nerves II through XII intact. Grossly intact SKIN: Warm, dry. Normal Color Course Vital Signs Vital signs: Vital Signs Temperature 98.0 F 12/17/24 12:46 Pulse Rate 80 12/17/24 12:46 Respiratory Rate 20 12/17/24 12:46 Blood Pressure 115/52 L 12/17/24 12:46 Pulse Oximetry 96 12/17/24 12:46 Oxygen Delivery Room Air 12/17/24 12:46 Temperature 97.4 F L 12/17/24 17:19 Pulse Rate 79 12/17/24 17:19 Respiratory Rate 20 12/17/24 17:19 Blood Pressure 116/45 L 12/17/24 17:19 Pulse Oximetry 100 12/17/24 17:19 Oxygen Delivery Nasal Cannula 12/17/24 15:51 Oxygen Flow Rate 2 12/17/24 15:51 Medical Decision Making MDM Narrative Medical decision making narrative: 74-year-old male presents emergency department for evaluation for scrotal edema and left lower extremity swelling with shortness of breath. Ultrasound was negative for DVT. Patient was afebrile with no leukocytosis and hemoglobin of 9.7. Patient does have a potassium of 2.8 this was replaced with 40 mEq p.o. and 20 mEq IV potassium. This was started prior to starting the patient on Lasix for diuresis. Case was discussed with hospitalist patient was accepted for admission to the IMU. Patient was updated the results of the workup and plan for admission. All questions concerns were addressed. Differential Diagnosis Differential Diagnosis: Hypokalemia, anasarca, DVT, cellulitis, venous stasis, CHF Vital Signs Vital Signs: Vital Signs Temperature 98.0 F 12/17/24 12:46 Pulse Rate 80 12/17/24 12:46 Respiratory Rate 20 12/17/24 12:46 Blood Pressure 115/52 L 12/17/24 12:46 Pulse Oximetry 96 12/17/24 12:46 Oxygen Delivery Room Air 12/17/24 12:46 Temperature 97.4 F L 12/17/24 17:19 Pulse Rate 79 12/17/24 17:19 Respiratory Rate 20 12/17/24 17:19 Blood Pressure 116/45 L 12/17/24 17:19 Pulse Oximetry 100 12/17/24 17:19 Oxygen Delivery Nasal Cannula 12/17/24 15:51 Oxygen Flow Rate 2 12/17/24 15:51 Lab Data Lab results reviewed: Yes I reviewed the patient's lab results. 12/17/24 13:10 12/17/24 13:10 Labs: Lab Results 12/17/24 Range/Units 13:10 WBC 8.9 (4.5-10.0) K/mm3 RBC 3.74 L (4.6-6.20) M/mm3 Hgb 9.7 L (14.0-18.0) g/dL Hct 34.4 L (42.0-52.0) % MCV 92.0 (80-100) fl MCH 25.9 L (26-34) pg MCHC 28.2 L (32-36) g/dl RDW 15.6 H (11.5-14.5) % Plt Count 323 (150-375) k/mm3 MPV 10.4 (7.4-10.4) fl Immature Gran % (Auto) 0.8 H (0-0.5) % Neut % (Auto) 83.9 H (45.5-73.1) % Lymph % (Auto) 4.0 L (18.3-44.2) % Wirt % (Auto) 8.0 (2.6-8.5) % Eos % (Auto) 2.7 (0-4.4) % Baso % (Auto) 0.6 (0.2-1.2) % Lymph # (Auto) 0.36 L (0.9-3.2) K/mm3 Wirt # (Auto) 0.7 H (0.1-0.6) K/mm3 Eos # (Auto) 0.2 (0-0.3) K/mm3 Baso # (Auto) 0.1 (0.0-0.1) K/mm3 Abs Immat Gran (auto) 0.07 H (0.00-0.031) K/mm3 Absolute Neuts (auto) 7.5 H (1.3-6.7) K/mm3 Absolute Nucleated RBC 0.000 (0.0-0.012) K/mm3 Nucleated RBC % 0.0 (0.0-0.2) % PT 16.2 H (11.1-14.7) Seconds INR 1.3 APTT 26.8 (22.3-36.8) Seconds Sodium 132 L (137-145) mmol/L Potassium 2.8 L* (3.4-5.0) mmol/L Chloride 94 L (98-107) mmol/L Carbon Dioxide 37 H (22-30) mmol/L Anion Gap 1 L (4-12) mmol/L BUN 68 H D (9-20) mg/dL Creatinine 2.12 H (0.7-1.3) mg/dL Estim Creat Clear Calc 43 ml/min Estimated GFR 31 L (59 - ) Glucose 112 H (65-110) mg/dL Calcium 7.7 L (8.4-10.2) mg/dL Total Bilirubin 0.2 (0.2-1.3) mg/dL AST 20 (17-59) U/L ALT 10 (6-50) U/L Alkaline Phosphatase 38 (38-126) U/L NT-Pro-B Natriuret Pep 12434 H (19.9-100) pg/mL Total Protein 5.0 L (6.3-8.2) g/dL Albumin 2.8 L (3.5-5.1) g/dL Imaging Data Radiologist's impression: Impressions Venous Doppler Study 12/17/24 13:43 IMPRESSION: 1. No left leg DVT. Discharge Plan Discharge Clinical Impression: Acute hypokalemia, Anasarca, Acute dyspnea Patient Disposition: Still a Patient Condition: Stable
[2024-12-17 13:18] LABS: Hematocrit 34.4 % (42.0-52.0); Hemoglobin 9.7 g/dL (14.0-18.0); Immature Granulocyte Percent A 0.8 % (0-0.5); Lymphocytes Absolute Auto 0.36 K/mm3 (0.9-3.2); Mean Corpuscular HGB Conc 28.2 g/dl (32-36); Mean Corpuscular Hemoglobin 25.9 pg (26-34); Mean Corpuscular Volume 92.0 fl (80-100); Nucleated Red Blood Cells Absolute Auto 0.000 K/mm3 (0.0-0.012); Nucleated Red Blood Cells Perc 0.0 % (0.0-0.2); Platelet Count Result 323 k/mm3 (150-375); Red Blood Count 3.74 M/mm3 (4.6-6.20); White Blood Count 8.9 K/mm3 (4.5-10.0)
[2024-12-17 13:34] LABS: Alanine Aminotransferase 10 U/L (6-50); Albumin Level 2.8 g/dL (3.5-5.1); Alkaline Phosphatase 38 U/L (38-126); Anion Gap 1 mmol/L (4-12); Aspartate Amino Transferase 20 U/L (17-59); Bilirubin,Total 0.2 mg/dL (0.2-1.3); Blood Urea Nitrogen 68 mg/dL (9-20); Calcium 7.7 mg/dL (8.4-10.2); Carbon Dioxide 37 mmol/L (22-30); Chloride 94 mmol/L (98-107); Estimated CRCL calculation 43 ml/min; Estimated Glomerular Filt Rate 31; Glucose 112 mg/dL (65-110); Sodium 132 mmol/L (137-145)
[2024-12-17 13:35] LABS: Potassium 2.8 mmol/L (3.4-5.0); Total Protein 5.0 g/dL (6.3-8.2)
[2024-12-17 13:37] LABS: INR 1.3; Partial Thromboplastin Time 26.8 Seconds (22.3-36.8); Prothrombin Time 16.2 Seconds (11.1-14.7)
[2024-12-17 13:52] LABS: NT Pro B Type Natriuretic Pept 11600 pg/mL (19.9-100)
--- NOTE | 2024-12-17 14:07 | PM.IMHP ---
H&P: HPI History of Present Illness Date/Time: 12/17/24 14:07 Chief Complaint: Shortness of Breath Narrative: 74 y/o M with PMH of right BKA, lymphedema, iron deficiency anemia, peripheral vascular disease, gout, atrial fibrillation, AMELIA, CHF, hypothyroidism, HLD, and HTN presents here with shortness of breath and worsening edema. The patient presents here from home via EMS on 12/17 for further evaluation of worsening shortness of breath, generalized weakness, and worsening edema. He reports onset of symptoms approximately 2 weeks ago. He reports edema has affected his left lower extremity and scrotum, estimates his scrotum has increased in size by 3-4x. He has a history of congestive heart failure and follows with [facility]. He is currently on Bumex 1 mg t.i.d. and spironolactone. He reports he has run out of his spironolactone approximately 1 week ago and has only been taking his diuretic in the morning and around noon, has not taken his evening dose consistently due to nocturia. He has additionally been adding his old prescription for Lasix 40 mg daily for the past 2 weeks or so to try to increase his diuresis. He denies associated chest pain, cough, chills, fever, nausea, vomiting, diarrhea. Initial VS at presentation: 98? F, HR 80, RR 20, 115/52, and 96% on RA. ED workup showed: No leukocytosis, hemoglobin 9.7 (10.2 on 09/30/2024), INR 1.3, sodium 132, potassium 2.8, creatinine 2.12 and GFR 31 (2.14 and GFR 30 on 09/30/2024), glucose 112, calcium 7.7/albumin 2.8, BNP 14774. Venous LLE US showed no DVT. CXR showed right pleural effusion with associated basilar atelectasis and/or airspace disease. Review of Systems Review of Systems: All systems reviewed & are unremarkable except as noted in HPI and below PMFSH Past Medical History Medical History Iron deficiency anemia Right foot infection s/p BKA(08/23) Venous stasis ulcer of right lower extremity Lymphedema due to chronic inflammation Constipation Stercoral ulcer of rectum Fecal impaction Proctitis Hyponatremia Peripheral vascular disease Morbid obesity with body mass index (BMI) of 40.0 or higher Neuropathic pain Gout Sepsis Chronic acquired lymphedema Chronic anemia Obstructive sleep apnea Atrial fibrillation Lymphedema of both lower extremities Environmental allergies Ocular rosacea Rosacea Chronic low back pain Chronic venous insufficiency GERD without esophagitis Chronic congestive heart failure Echocardiogram in May 2021 was technically difficult and showed normal LV systolic function with an EF of 60 to 65%, severely enlarged RV chamber with moderate to severely reduced RV systolic function, severe biatrial enlargement, and moderate pulmonary hypertension. Dyslipidemia Essential (primary) hypertension Peripheral polyneuropathy Hypothyroidism Surgical History Surgical History Hx of right BKA (~07/2024) S/P BKA (below knee amputation) 08/25/24 Right below-knee amputation Dr. Malone History of carpal tunnel release History of thoracic surgery Pericardial effusion s/p pericardial window thought secondary to minoxidil, in 2010 at [facility]. H/O eye surgery (~2005) [id number] [facility] History of foot surgery Left Foot History of cholecystectomy (2008) History of rotator cuff surgery Bilateral. History of discectomy (2012) Family History Family History Father Cardiovascular disease Grandparent Cancer Mother COPD (chronic obstructive pulmonary disease) Social History Social History Social History: Surrogate medical decision maker: Shyla Hurst, daughter. Code status: Full code. Caffeine-decalf coffee, diet soda Smoking packs per day: 2 Smoking cigarettes per day: 40.0 Years smoked: 20 Smoking pack-years: 40.00 Smoking status: Former smoker Second hand tobacco smoke exposure: No Additional smoking assessment comments: 1979 Alcohol intake: never Alcohol use details: One beer daily. Substance use: never Substance use type: does not use Do You Feel Safe in your Home?: Yes Lack of Transportation: No Lack of Food: Never True Current Housing: I Have Housing Concerned About Future Housing: No Difficulty Paying Gas/Electric Bills: No Difficulty Paying for Meds: No Currently Unemployed: No Education: Associate Degree Difficulty w/ Childcare or Family Care: No Living arrangements: alone Additional living arrangements comments: Lives in own home in [place]. Uses a motorized scooter and transfers with slide board. 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 Spiritual care concerns: No Meds Home Medications and Allergies Home Medications ?Medication ?Instructions ?Recorded ?Confirmed ?Type apixaban 5 mg tablet (Eliquis) 5 mg PO Q12HR #180 tabs 01/19/22 12/17/24 Rx metoprolol tartrate 50 mg tablet 50 mg PO Q12HR #180 tabs 01/19/22 12/17/24 Rx acetazolamide 250 mg tablet 250 mg PO DAILY 11/19/22 12/17/24 History spironolactone 25 mg tablet 25 mg PO DAILY #30 tabs 04/06/23 12/17/24 Rx calcitriol 0.25 mcg capsule 0.25 mcg PO 3XW #36 caps 10/30/23 12/17/24 Rx allopurinol 100 mg tablet 100 mg PO DAILY #10 tabs 08/04/24 12/17/24 Rx famotidine 20 mg tablet 20 mg PO BID #180 tabs 08/04/24 12/17/24 Rx minoxidil 2.5 mg tablet 2.5 mg PO DAILY 08/04/24 12/17/24 History tamsulosin 0.4 mg capsule 0.4 mg PO QAM #90 caps 08/04/24 12/17/24 Rx acetaminophen 500 mg capsule 500 mg PO Q6H PRN fever or pain 09/15/24 12/17/24 History potassium chloride 10 mEq 10 meq PO DAILY 10/01/24 12/17/24 History capsule,extended release gabapentin 300 mg capsule 300 mg PO TID #270 caps 10/06/24 12/17/24 Rx bumetanide 1 mg tablet 1 mg PO TID 10/21/24 12/17/24 History fluticasone propionate 50 1 spray intranasal DAILY PRN 10/21/24 12/17/24 History mcg/actuation nasal Congestion spray,suspension (Flonase Allergy Relief) levothyroxine 200 mcg tablet 200 mcg PO DAILY 10/21/24 12/17/24 History loratadine 10 mg tablet (Claritin) 10 mg PO DAILY allergy symptoms 10/21/24 12/17/24 History polyethylene glycol 3350 17 17 g PO DAILY PRN Constipation 10/21/24 12/17/24 History gram/dose oral powder (Miralax) docusate sodium 100 mg capsule 100 mg PO Q12H PRN constipation 10/30/24 12/17/24 Rx #60 caps metolazone 2.5 mg tablet 2.5 mg PO .COMPLEX 12/17/24 12/17/24 History Allergies Allergy/AdvReac Type Severity Reaction Status Date / Time Sulfa (Sulfonamide Allergy Mild Rash Verified 11/16/24 13:43 Antibiotics) Penicillins Allergy Unknown SWELLING Verified 11/16/24 13:43 codeine AdvReac Mild N/V Verified 11/16/24 13:43 hydrocodone AdvReac Mild N/V Verified 11/16/24 13:43 oxycodone (From OxyContin) AdvReac Mild Nausea Verified 11/16/24 13:43 tramadol AdvReac Mild Nausea Verified 11/16/24 13:43 Vital Signs Vital Signs - 24 hr 12/17/24 12:46 Temperature 98.0 F Pulse Rate 80 Respiratory Rate 20 Blood Pressure 115/52 L Pulse Oximetry 96 Oxygen Delivery Room Air Exam Const: General: comfortable and no acute distress Other: , male, elderly, chronically ill-appearing, obese body habitus HENMT: Face/Nose/Sinus: Normal nares present Mouth: Yes moist mucous membranes Other: NC in place, tolerating well Eyes: General: appearance normal, both eyes and all related structures Sclera: sclerae normal Pupils: Equal, round and reactive pupils present EOM: EOMs intact bilaterally Resp: Effort & Inspection: normal respiratory effort Auscultation: clear to auscultation bilaterally Cardio: Rate: regular rate Rhythm: regular rhythm Other: S1-S2 present without murmur, rub, ectopy GI: Other: Abdomen soft, nondistended, nontender. Normoactive bowel sounds in all quadrants. : Other: Significant scrotal edema, no open wounds Skin: Other: Wound to lateral right BKA stump, no signs of infection Neuro: Speech: normal speech Motor exam (neuro): 5/5 motor strength present throughout Sensory Exam: normal sensation Other: A&O x4 Extrem: Other: 4+ pitting edema to the left lower extremity and 4+ pitting edema to the right lower extremity, BKA noted. Edema extends to the upper thighs/lower pannus and scrotum. Psych: Mental Status: mental status grossly normal Affect: normal affect Other: Good insight and judgment, very pleasant H&P: Results Labs Labs: Short CBC 12/17/24 Range/Units 13:10 WBC 8.9 (4.5-10.0) K/mm3 Hgb 9.7 L (14.0-18.0) g/dL Hct 34.4 L (42.0-52.0) % Plt Count 323 (150-375) k/mm3 BMP 12/17/24 13:10 Sodium 132 L Potassium 2.8 L* Chloride 94 L Carbon Dioxide 37 H BUN 68 H D Creatinine 2.12 H Glucose 112 H Calcium 7.7 L Liver Function 12/17/24 Range/Units 13:10 Total Bilirubin 0.2 (0.2-1.3) mg/dL AST 20 (17-59) U/L ALT 10 (6-50) U/L Alkaline Phosphatase 38 (38-126) U/L Albumin 2.8 L (3.5-5.1) g/dL Assessment and Plan Assessment and plan (1) CHF (congestive heart failure): Qualifiers: Heart failure chronicity: chronic Heart failure type: diastolic Qualified Code(s): I50.32 - Chronic diastolic (congestive) heart failure Code(s): I50.9 - Heart failure, unspecified Status: Chronic Assessment and Plan: - acute on chronic - BNP 1160 - most recent echo (04/2022): Technically difficult echo due to body habitus, LV function noted to be well-preserved, RV enlargement at least mild systolic dysfunction, poorly visualized cardiac valves/no obvious valvular dysfunction. - on Bumex 1 mg TID, reportedly not taking evening dose as it causes him nocturia?, and has been taking old script of Lasix 40 mg PO for the past 2 weeks at home, continue as Bumex 1 mg TID IV. Patient also reporting he has been out of his spironolactone for the past week, resume. Continue metolazone. - monitor I&Os and daily weights - trend renal function Currently complicated by a hypokalemia, K 2.8 upon arrival to the emergency department. Initial repletion with 40 KCL p.o. and 20 KCL IVPB. Will give additional 40 PO this afternoon and recheck. If normalized, will start IV diuresis. (Repeat 3.6) Albumin additionally noted to be low at 2.8, repleting. (2) Hypokalemia: Code(s): E87.6 - Hypokalemia Status: Acute Assessment and Plan: - K 2.9 - initially given 40 PO and 20 IVPB in the ED, giving additional 40 PO and recheck this evening prior to starting IV diuresis - continue home medication -> KCl 10 meq PO - monitor (3) Atrial fibrillation: Qualifiers: Atrial fibrillation type: longstanding persistent Qualified Code(s): I48.11 - Longstanding persistent atrial fibrillation Code(s): I48.91 - Unspecified atrial fibrillation Status: Chronic Assessment and Plan: - continue home medication(s): Eliquis, metoprolol 50 mg b.i.d. (4) Stage 3b chronic kidney disease: Code(s): N18.32 - Chronic kidney disease, stage 3b Status: Chronic Assessment and Plan: - creatinine 2.12, BUN 68, GFR 31 upon admission on 12/17 - baseline creatinine variable, has ranged between 1.74 and 2.85 since July of 2024 - trend renal function - trend electrolytes, correct as needed (5) Hx of right BKA: Onset Date: ~07/2024 Code(s): Z89.511 - Acquired absence of right leg below knee Status: Chronic Assessment and Plan: - right BKA in July of 2024 secondary to chronic infection, clinical exam shows an open wound to the lateral aspect of his stump. No signs of infection. Wound RN consulted for recommendations for continued care. (6) Hypothyroidism: Qualifiers: Hypothyroidism type: acquired Qualified Code(s): E03.9 - Hypothyroidism, unspecified Code(s): E03.9 - Hypothyroidism, unspecified Status: Chronic Assessment and Plan: - reviewed previous lab work, 2.5 in 2022 - continue Synthroid (7) Essential (primary) hypertension: Code(s): I10 - Essential (primary) hypertension Status: Chronic Assessment and Plan: - chronic, currently 115/52 - continue home medications: Spironolactone, metoprolol - monitor (8) AMELIA (obstructive sleep apnea): Code(s): G47.33 - Obstructive sleep apnea (adult) (pediatric) Status: Chronic Assessment and Plan: - continue home CPAP Plan Diet: Renal GI Prophylaxis: N/a DVT Prophylaxis: Eliquis IV fluids: None Lines/Tubes: Peripheral IV Code Status: Full code Quality VTE Prophylaxis VTE prophylaxis: pharmacologic ordered Hospitalist [facility] Advance Care Plan I have confirmed that the patient's Advanced Care Plan is present, code status is documented, or surrogate decision maker is listed in patient medical record.: Yes Medication Reconciliation I have utilized all available resources to obtain, update and review the patients current medications (includes all prescriptions, OTC, herbals, cannabis, and nutritional supplements).: Yes
[2024-12-17] MEDS: KCL 20 MEQ/SW 100 ML 100 ML 50 MEQ IVPB (15:33)
[2024-12-17] MEDS: POTASSIUM CHLORIDE 20 MEQ PACKET (FOR LIQUID) 40 MEQ PO (16:26)
[2024-12-17] MEDS: PERFLUTREN LIPID MICROSPHERES 1.5 ML VIAL DILUTED TO 10 ML TOTAL VOLUME IV PUSH (16:56)
--- NOTE | 2024-12-17 16:56 | IVDEFINITY ---
Prior to administration of IV Definity the patient was educated on the risks and benefits of the imaging enhancing agent including potential adverse side effects. The patient verbalized understanding. Allergies were verified. No exclusion criteria were identified and at least one of the following inclusion criteria were met: 1) physician request, 2) patient technically difficult to image (per the [place] [employer]ocardi[employer] guidelines of two or more segments not discernable within the apical view), or 3) questionable left ventricular function. ?
--- NOTE | 2024-12-17 17:27 | ADMGEN ---
This patient, Irwin Cyr Jr., was admitted to IMU Room 232-01. Patient/family oriented to hospital policies and general routines including ID bracelet, bed and alarms, visiting hours, pain management, procedures, bathroom and other care routines, personal items, smoking policy, room service/diet, and visiting hours. Information on how to activate the Rapid Response Team has been discussed. Patient/Family are encouraged to report perceived risks to care and to ask questions if they do not understand what they are told or what they should do.
[2024-12-17] MEDS: POTASSIUM CHLORIDE 20 MEQ ER TABLET 40 MEQ PO (18:24)
[2024-12-17] MEDS: ALBUMIN HUMAN 25% 25 GM/100 ML 100 ML IVPB (18:25)
[2024-12-17 18:39] LABS: Anion Gap 2 mmol/L (4-12); Blood Urea Nitrogen 66 mg/dL (9-20); Calcium 7.8 mg/dL (8.4-10.2); Carbon Dioxide 37 mmol/L (22-30); Chloride 94 mmol/L (98-107); Estimated CRCL calculation 43 ml/min; Estimated Glomerular Filt Rate 31; Glucose 124 mg/dL (65-110); Magnesium 2.6 mg/dL (1.6-2.3); Potassium 3.6 mmol/L (3.4-5.0); Sodium 133 mmol/L (137-145)
[2024-12-17] MEDS: BUMETANIDE INJ 1 MG/4 ML VIAL IV PUSH (20:19)
[2024-12-17] MEDS: FAMOTIDINE 20 MG TABLET PO (20:19)
[2024-12-17] MEDS: METOPROLOL TARTRATE 50 MG TAB PO (20:19)
[2024-12-17] MEDS: APIXABAN 5 MG TABLET PO (20:19)
[2024-12-18] VITALS (12 sets, daily range): BP systolic 91–114; BP diastolic 40–50; PULSE 74–78; RESP 18–22; TEMP 36.4–36.8; O2SAT 94–100
[2024-12-18] MEDS: ALBUMIN HUMAN 25% 25 GM/100 ML 100 ML IVPB ×3 (00:05→12:33)
[2024-12-18] MEDS: ACETAMINOPHEN 500 MG TABLET PO ×2 (04:30→12:33)
[2024-12-18 04:40] LABS: Hematocrit 31.0 % (42.0-52.0); Hemoglobin 8.8 g/dL (14.0-18.0); Immature Granulocyte Percent A 0.5 % (0-0.5); Lymphocytes Absolute Auto 0.45 K/mm3 (0.9-3.2); Mean Corpuscular HGB Conc 28.4 g/dl (32-36); Mean Corpuscular Hemoglobin 26.0 pg (26-34); Mean Corpuscular Volume 91.7 fl (80-100); Nucleated Red Blood Cells Absolute Auto 0.000 K/mm3 (0.0-0.012); Nucleated Red Blood Cells Perc 0.0 % (0.0-0.2); Platelet Count Result 275 k/mm3 (150-375); Red Blood Count 3.38 M/mm3 (4.6-6.20); White Blood Count 8.0 K/mm3 (4.5-10.0)
[2024-12-18 04:57] LABS: Alanine Aminotransferase 6 U/L (6-50); Albumin Level 2.7 g/dL (3.5-5.1); Alkaline Phosphatase 39 U/L (38-126); Anion Gap 2 mmol/L (4-12); Aspartate Amino Transferase 15 U/L (17-59); Bilirubin,Total 0.2 mg/dL (0.2-1.3); Blood Urea Nitrogen 65 mg/dL (9-20); Calcium 7.7 mg/dL (8.4-10.2); Carbon Dioxide 36 mmol/L (22-30); Chloride 96 mmol/L (98-107); Estimated CRCL calculation 43 ml/min; Estimated Glomerular Filt Rate 31; Glucose 100 mg/dL (65-110); Potassium 3.5 mmol/L (3.4-5.0); Sodium 134 mmol/L (137-145); Total Protein 4.8 g/dL (6.3-8.2)
[2024-12-18 05:00] LABS: Anisocytosis 1+; Microcytosis 1+ (NORMAL); Polychromasia 1+; Schistocytes None Seen
[2024-12-18] MEDS: HYOSCYAMINE SULFATE 0.125 MG TABLET PO ×3 (05:00→17:04)
[2024-12-18] MEDS: LEVOTHYROXINE SODIUM 100 MCG TABLET 200 MCG PO (07:16)
--- NOTE | 2024-12-18 07:40 | PM.IMPN ---
Progress Note: A&P Assessment and Plan (1) CHF (congestive heart failure): Qualifiers: Heart failure chronicity: chronic Heart failure type: diastolic Qualified Code(s): I50.32 - Chronic diastolic (congestive) heart failure Code(s): I50.9 - Heart failure, unspecified Status: Chronic (2) Hypokalemia: Code(s): E87.6 - Hypokalemia Status: Acute (3) Atrial fibrillation: Qualifiers: Atrial fibrillation type: longstanding persistent Qualified Code(s): I48.11 - Longstanding persistent atrial fibrillation Code(s): I48.91 - Unspecified atrial fibrillation Status: Chronic (4) Stage 3b chronic kidney disease: Code(s): N18.32 - Chronic kidney disease, stage 3b Status: Chronic (5) Hx of right BKA: Onset Date: ~07/2024 Code(s): Z89.511 - Acquired absence of right leg below knee Status: Chronic (6) Hypothyroidism: Qualifiers: Hypothyroidism type: acquired Qualified Code(s): E03.9 - Hypothyroidism, unspecified Code(s): E03.9 - Hypothyroidism, unspecified Status: Chronic (7) Essential (primary) hypertension: Code(s): I10 - Essential (primary) hypertension Status: Chronic Assessment and Plan: Delete that (8) AMELIA (obstructive sleep apnea): Code(s): G47.33 - Obstructive sleep apnea (adult) (pediatric) Status: Chronic Plan 74 y/o M with PMH of right BKA, lymphedema, iron deficiency anemia, peripheral vascular disease, gout, atrial fibrillation, AMELIA, CHF, hypothyroidism, HLD, and HTN presents here with shortness of breath and worsening edema. The patient presents here from home via EMS on 12/17 for further evaluation of worsening shortness of breath, generalized weakness, and worsening edema. He reports onset of symptoms approximately 2 weeks ago. He reports edema has affected his left lower extremity and scrotum, estimates his scrotum has increased in size by 3-4x. He has a history of congestive heart failure and follows with Frandy DE LEON. He is currently on Bumex 1 mg t.i.d. and spironolactone. He reports he has run out of his spironolactone approximately 1 week ago and has only been taking his diuretic in the morning and around noon, has not taken his evening dose consistently due to nocturia. He has additionally been adding his old prescription for Lasix 40 mg daily for the past 2 weeks or so to try to increase his diuresis. He denies associated chest pain, cough, chills, fever, nausea, vomiting, diarrhea. Initial VS at presentation: 98? F, HR 80, RR 20, 115/52, and 96% on RA. ED workup showed: No leukocytosis, hemoglobin 9.7 (10.2 on 09/30/2024), INR 1.3, sodium 132, potassium 2.8, creatinine 2.12 and GFR 31 (2.14 and GFR 30 on 09/30/2024), glucose 112, calcium 7.7/albumin 2.8, BNP 93572. Venous LLE US showed no DVT. CXR showed right pleural effusion with associated basilar atelectasis and/or airspace disease. Acute on chronic congestive heart failure systolic diastolic. BNP 1160. Echo 04/2022 with LV function well reserved RV enlargement at least mild systolic dysfunction. Poorly visualized cardiac valves/no obvious valvular dysfunction. On Bumex 1 mg t.i.d. not taking as prescribed. Continue Bumex 1 mg IV t.i.d. patient also reported out of his spironolactone for past week which will be resumed along with metolazone. Continue to monitor renal function Hypokalemia replace and monitor Atrial fibrillation on Eliquis and metoprolol rate control Stage IIIB chronic kidney disease. Baseline creatinine varies between 1.7-2.8. Currently at 2.1. Continue to monitor Status post right BKA in July 2024 secondary to chronic infection. Wound care to continue Hypothyroidism Synthroid Hypertension home medication AMELIA on CPAP Diet: Renal GI Prophylaxis: N/a DVT Prophylaxis: Eliquis IV fluids: None Lines/Tubes: Peripheral IV Code Status: Full code Subjective Date/time seen: 12/18/24 07:40 Interval history: Chart reviewed. Nursing reports increased bladder spasm. Miller was placed for urinary retention in the ER. Review of Systems Review of Systems: All systems reviewed & are unremarkable except as noted in HPI and below Exam Narrative: APPEARANCE: Well appearing, no pain, no distress, well-nourished. HEAD: normocephalic, atraumatic. EYES: PERRLA/EOMI, conjunctivae clear. NOSE: Normal no drainage EARS:TMS clear with good light reflex. THROAT: Pharynx clear, no exudate. NECK: Supple. No adenopathy, no masses. RESPIRATORY: Airway patent, respirations nonlabored. Clear to auscultation bilaterally, no rales, rhonchi, wheezing. CARDIOVASCULAR: Regular rate and rhythm without murmurs rubs or gallops. ABDOMINAL: Soft, nontender, nondistended, normal bowel sounds MUSCULOSKELETAL: Well-appearing stop on right leg, edema of left lower extremity NEURO: Alert. Cranial nerves II through XII intact. Grossly intact SKIN: Warm, dry. Normal Color Objective Data Vital Signs Vital Signs: Vital Signs - 24 hr 12/17/24 12:46 12/17/24 13:00 12/17/24 13:30 Temperature 98.0 F Pulse Rate 80 78 78 Respiratory Rate 20 20 18 Blood Pressure 115/52 L 114/52 L 105/50 L Pulse Oximetry 96 98 99 Oxygen Delivery Room Air Oxygen Flow Rate 12/17/24 14:30 12/17/24 15:30 12/17/24 15:51 Temperature Pulse Rate 80 77 Respiratory Rate 22 H 18 Blood Pressure 111/50 L 108/42 L Pulse Oximetry 99 100 97 Oxygen Delivery Nasal Cannula Oxygen Flow Rate 2 12/17/24 17:19 12/17/24 18:00 12/17/24 18:06 Temperature 97.4 F L Pulse Rate 79 77 Respiratory Rate 20 Blood Pressure 116/45 L Pulse Oximetry 100 100 Oxygen Delivery Nasal Cannula Oxygen Flow Rate 2 12/17/24 19:48 12/17/24 19:48 12/17/24 20:00 Temperature 98.0 F Pulse Rate 77 77 78 Respiratory Rate 20 22 H Blood Pressure 113/51 L Pulse Oximetry 100 96 Oxygen Delivery Nasal Cannula Oxygen Flow Rate 1 12/17/24 20:30 12/17/24 21:14 12/18/24 00:00 Temperature Pulse Rate 77 75 Respiratory Rate 22 H Blood Pressure 91/40 L Pulse Oximetry 96 98 Oxygen Delivery Nasal Cannula CPAP Oxygen Flow Rate 2 12/18/24 00:00 12/18/24 00:00 12/18/24 02:02 Temperature Pulse Rate 75 75 Respiratory Rate 18 Blood Pressure Pulse Oximetry 99 Oxygen Delivery CPAP CPAP Oxygen Flow Rate 12/18/24 04:00 12/18/24 04:00 12/18/24 04:00 Temperature 98.1 F Pulse Rate 75 75 75 Respiratory Rate 18 18 Blood Pressure 104/48 L Pulse Oximetry 99 99 Oxygen Delivery CPAP Oxygen Flow Rate 4 Intake/Output Intake/Output: Intake & Output 12/15/24 12/16/24 12/17/24 12/18/24 23:59 23:59 23:59 23:59 Intake Total 700 200 Output Total 200 500 Balance 500 -300 Meds/Results Medications: Active Medications Generic Name Dose Route Start Last Admin Trade Name Freq PRN Reason Stop Dose Admin Acetaminophen 500 mg 12/17/24 17:44 12/18/24 04:30 Acetaminophen 500 Mg Tablet PO 500 mg Q6H PRN Administration fever or pain 1-3 Allopurinol 100 mg 12/18/24 09:00 Allopurinol 100 Mg Tablet PO DAILY ANGELA Apixaban 5 mg 12/17/24 21:00 12/17/24 20:19 Apixaban 5 Mg Tablet PO 5 mg Q12HR ANGELA Administration Bumetanide 1 mg 12/17/24 20:00 12/17/24 20:19 Bumetanide Inj 1 Mg/4 Ml Vial IV PUSH 1 mg TID ANGELA Administration Calcitriol 0.25 mcg 12/18/24 17:45 Calcitriol 0.25 Mcg Capsule PO MoWeFr ANGELA Docusate Sodium 100 mg 12/17/24 17:44 Docusate Sodium 100 Mg Capsule PO Q12H PRN Constipation Famotidine 20 mg 12/17/24 21:00 12/17/24 20:19 Famotidine 20 Mg Tablet PO 20 mg Q12HR ANGELA Administration Fluticasone Propionate 1 spray 12/17/24 17:44 Fluticasone Propionate 0.05% Na Spr 16 Gm Btl (*Bkc) NASAL DAILY PRN Congestion Gabapentin 300 mg 12/18/24 09:00 Gabapentin 300 Mg Capsule PO TID ANGELA Hyoscyamine 0.125 mg 12/18/24 03:43 12/18/24 05:00 Hyoscyamine Sulfate 0.125 Mg Tablet PO 0.125 mg Q4H PRN Administration bladder spasms Albumin Human 100 mls @ 60 mls/hr 12/17/24 18:00 12/18/24 07:15 Albutein IVPB 12/18/24 13:39 60 mls/hr Q6HR ANGELA Administration Levothyroxine Sodium 200 mcg 12/18/24 06:30 12/18/24 07:16 Levothyroxine Sodium 100 Mcg Tablet PO 200 mcg DAILY@0630 [facility] Administration Loratadine 10 mg 12/18/24 09:00 Loratadine 10 Mg Tablet PO DAILY [facility] Metolazone 2.5 mg 12/19/24 09:00 Metolazone 2.5 Mg Tablet PO MoWeFrSa [facility] Metoprolol Tartrate 50 mg 12/17/24 21:00 12/17/24 20:19 Metoprolol Tartrate 50 Mg Tab PO 50 mg Q12HR [facility] Administration Minoxidil 2.5 mg 12/18/24 09:00 Minoxidil 2.5 Mg Tablet PO DAILY [facility] Polyethylene Glycol 17 gm 12/17/24 17:44 Polyethylene Glycol 3350 17 Gm Powd.Pack PO DAILY PRN Constipation Potassium Chloride 10 meq 12/18/24 09:00 Potassium Chloride 10 Meq Er Tablet PO DAILY [facility] Spironolactone 25 mg 12/18/24 09:00 Spironolactone 25 Mg Tablet PO DAILY [facility] Tamsulosin HCl 0.4 mg 12/18/24 09:00 Tamsulosin Hcl 0.4 Mg Capsule PO QAM [facility] Radiology Results: ITS Impressions Venous Doppler Study 12/17/24 13:43 IMPRESSION: 1. No left leg DVT. Chest X-Ray 12/17/24 14:14 IMPRESSION: 1. Right pleural effusion with associated basilar atelectasis and/or airspace disease. Labs Labs: Laboratory Results - last 24 hr 12/17/24 12/17/24 12/18/24 13:10 18:23 04:27 WBC 8.9 8.0 RBC 3.74 L 3.38 L Hgb 9.7 L 8.8 L Hct 34.4 L 31.0 L MCV 92.0 91.7 MCH 25.9 L 26.0 MCHC 28.2 L 28.4 L RDW 15.6 H 15.6 H Plt Count 323 275 MPV 10.4 9.7 Immature Gran % (Auto) 0.8 H 0.5 Neut % (Auto) 83.9 H 80.2 H Lymph % (Auto) 4.0 L 5.6 L [place] % (Auto) 8.0 8.5 Eos % (Auto) 2.7 4.4 Baso % (Auto) 0.6 0.8 Lymph # (Auto) 0.36 L 0.45 L [place] # (Auto) 0.7 H 0.7 H Eos # (Auto) 0.2 0.4 H Baso # (Auto) 0.1 0.1 Abs Immat Gran (auto) 0.07 H 0.04 H Absolute Neuts (auto) 7.5 H 6.4 Absolute Nucleated RBC 0.000 0.000 Band Neutrophils % Not Reportable Nucleated RBC % 0.0 0.0 Platelet Estimate Adequate Polychromasia 1+ Anisocytosis 1+ Microcytosis 1+ Schistocytes None seen PT 16.2 H INR 1.3 APTT 26.8 Sodium 132 L 133 L 134 L Potassium 2.8 L* 3.6 3.5 Chloride 94 L 94 L 96 L Carbon Dioxide 37 H 37 H 36 H Anion Gap 1 L 2 L 2 L BUN 68 H D 66 H 65 H Creatinine 2.12 H 2.08 H 2.08 H Estim Creat Clear Calc 43 43 43 Estimated GFR 31 L 31 L 31 L Glucose 112 H 124 H 100 Calcium 7.7 L 7.8 L 7.7 L Magnesium 2.6 H Total Bilirubin 0.2 0.2 AST 20 15 L ALT 10 6 Alkaline Phosphatase 38 39 NT-Pro-B Natriuret Pep 08854 H Total Protein 5.0 L 4.8 L Albumin 2.8 L 2.7 L
[2024-12-18] MEDS: POTASSIUM CHLORIDE 10 MEQ ER TABLET PO (09:07)
[2024-12-18] MEDS: TAMSULOSIN HCL 0.4 MG CAPSULE PO (09:07)
[2024-12-18] MEDS: APIXABAN 5 MG TABLET PO ×2 (09:07→21:04)
[2024-12-18] MEDS: SPIRONOLACTONE 25 MG TABLET PO (09:07)
[2024-12-18] MEDS: BUMETANIDE INJ 1 MG/4 ML VIAL IV PUSH ×3 (09:07→17:04)
[2024-12-18] MEDS: LORATADINE 10 MG TABLET PO (09:08)
[2024-12-18] MEDS: METOPROLOL TARTRATE 50 MG TAB PO ×2 (09:08→21:04)
[2024-12-18] MEDS: FAMOTIDINE 20 MG TABLET PO ×2 (09:08→21:04)
[2024-12-18] MEDS: GABAPENTIN 300 MG CAPSULE PO ×3 (09:08→17:04)
[2024-12-18] MEDS: oxyBUTYnin CHLORIDE 2.5 MG TAB PO ×2 (09:56→21:06)
[2024-12-18] MEDS: POTASSIUM CHLORIDE 20 MEQ ER TABLET 40 MEQ PO (09:56)
--- NOTE | 2024-12-18 18:15 | PC.NURSE ---
Report called to AARON Oleary. No further questions noted at this time.
--- NOTE | 2024-12-18 18:25 | PC.NURSE ---
This patient, Irwin Cyr , was received from IMU on 12/18/24 at 1825. Patient/family oriented to unit policies and routines
[2024-12-19] VITALS (16 sets, daily range): BP systolic 103–115; BP diastolic 44–55; PULSE 60–80; RESP 20; TEMP 36.3–37; O2SAT 94–100
[2024-12-19 05:54] LABS: Alanine Aminotransferase < 6 U/L (6-50); Albumin Level 2.6 g/dL (3.5-5.1); Alkaline Phosphatase 32 U/L (38-126); Anion Gap 4 mmol/L (4-12); Aspartate Amino Transferase 17 U/L (17-59); Bilirubin,Total 0.3 mg/dL (0.2-1.3); Blood Urea Nitrogen 65 mg/dL (9-20); Calcium 7.8 mg/dL (8.4-10.2); Carbon Dioxide 31 mmol/L (22-30); Chloride 98 mmol/L (98-107); Estimated CRCL calculation 50 ml/min; Estimated Glomerular Filt Rate 37; Glucose 95 mg/dL (65-110); Magnesium 2.6 mg/dL (1.6-2.3); Potassium 3.8 mmol/L (3.4-5.0); Sodium 133 mmol/L (137-145); Total Protein 4.4 g/dL (6.3-8.2)
[2024-12-19] MEDS: LEVOTHYROXINE SODIUM 100 MCG TABLET 200 MCG PO (06:08)
[2024-12-19 06:11] LABS: Hematocrit 35.1 % (42.0-52.0); Hemoglobin 9.4 g/dL (14.0-18.0); Immature Granulocyte Percent A 0.4 % (0-0.5); Lymphocytes Absolute Auto 0.40 K/mm3 (0.9-3.2); Mean Corpuscular HGB Conc 26.8 g/dl (32-36); Mean Corpuscular Hemoglobin 25.7 pg (26-34); Mean Corpuscular Volume 95.9 fl (80-100); Nucleated Red Blood Cells Absolute Auto 0.000 K/mm3 (0.0-0.012); Nucleated Red Blood Cells Perc 0.0 % (0.0-0.2); Platelet Count Result 297 k/mm3 (150-375); Red Blood Count 3.66 M/mm3 (4.6-6.20); White Blood Count 9.2 K/mm3 (4.5-10.0)
[2024-12-19 06:19] LABS: Hypochromasia 1+; Polychromasia 1+
[2024-12-19 06:20] LABS: Anisocytosis 1+; Ovalocytes 1+; Schistocytes None Seen; Target Cells Occasional
[2024-12-19] MEDS: POTASSIUM CHLORIDE 10 MEQ ER TABLET PO (09:28)
[2024-12-19] MEDS: BUMETANIDE INJ 1 MG/4 ML VIAL IV PUSH (09:28)
[2024-12-19] MEDS: SPIRONOLACTONE 25 MG TABLET PO (09:28)
[2024-12-19] MEDS: LORATADINE 10 MG TABLET PO (09:28)
[2024-12-19] MEDS: TAMSULOSIN HCL 0.4 MG CAPSULE PO (09:28)
[2024-12-19] MEDS: GABAPENTIN 300 MG CAPSULE PO ×3 (09:28→17:18)
[2024-12-19] MEDS: APIXABAN 5 MG TABLET PO ×2 (09:28→22:11)
[2024-12-19] MEDS: FAMOTIDINE 20 MG TABLET PO ×2 (09:28→22:11)
[2024-12-19] MEDS: METOPROLOL TARTRATE 50 MG TAB PO (09:29)
[2024-12-19] MEDS: oxyBUTYnin CHLORIDE 2.5 MG TAB PO ×2 (09:32→14:16)
[2024-12-19] MEDS: ACETAMINOPHEN 500 MG TABLET PO ×2 (09:32→17:18)
--- NOTE | 2024-12-19 10:23 | ECG_ITS ---
Test Date: 2024-12-19 10:37:22 Measurements Intervals [place] Rate: 57 P: 0 IN: 0 QRS: -86 QRSD: 166 T: 59 QT: 438 QTc: 429 Interpretive Statements ATRIAL FIBRILLATION+ LEFTWARD AXIS RIGHT BUNDLE BRANCH BLOCK [120+ ms QRS DURATION, UPRIGHT V1, 40+ ms S IN I/aVL/V4/V5/V6] ABNORMAL ECG Compared to ECG 12/17/2024 13:35:23 VENTRICULAR RESPONSE IS SLOWED Electronically Signed On 12-20-2024 08:05:23 CDT by Anirudh Wise M.D.
--- NOTE | 2024-12-19 10:24 | PC.NURSE ---
AARON Downey sitting next to quality assurance monitor body noted patient's HR down to 20-30s. RN talked to primary AARON Redmond and got the okay to call MD for her and request STAT EKG. MD Aldridge said get STAT EKG.
--- NOTE | 2024-12-19 13:33 | PM.IMPN ---
Progress Note: A&P Assessment and Plan (1) CHF (congestive heart failure): Qualifiers: Heart failure chronicity: chronic Heart failure type: diastolic Qualified Code(s): I50.32 - Chronic diastolic (congestive) heart failure Code(s): I50.9 - Heart failure, unspecified Status: Chronic (2) Hypokalemia: Code(s): E87.6 - Hypokalemia Status: Acute (3) Atrial fibrillation: Qualifiers: Atrial fibrillation type: longstanding persistent Qualified Code(s): I48.11 - Longstanding persistent atrial fibrillation Code(s): I48.91 - Unspecified atrial fibrillation Status: Chronic (4) Stage 3b chronic kidney disease: Code(s): N18.32 - Chronic kidney disease, stage 3b Status: Chronic (5) Hx of right BKA: Onset Date: ~07/2024 Code(s): Z89.511 - Acquired absence of right leg below knee Status: Chronic (6) Hypothyroidism: Qualifiers: Hypothyroidism type: acquired Qualified Code(s): E03.9 - Hypothyroidism, unspecified Code(s): E03.9 - Hypothyroidism, unspecified Status: Chronic (7) Essential (primary) hypertension: Code(s): I10 - Essential (primary) hypertension Status: Chronic (8) AMELIA (obstructive sleep apnea): Code(s): G47.33 - Obstructive sleep apnea (adult) (pediatric) Status: Chronic Plan 74 y/o M with PMH of right BKA, lymphedema, iron deficiency anemia, peripheral vascular disease, gout, atrial fibrillation, AMELIA, CHF, hypothyroidism, HLD, and HTN presents here with shortness of breath and worsening edema. The patient presents here from home via EMS on 12/17 for further evaluation of worsening shortness of breath, generalized weakness, and worsening edema. He reports onset of symptoms approximately 2 weeks ago. He reports edema has affected his left lower extremity and scrotum, estimates his scrotum has increased in size by 3-4x. He has a history of congestive heart failure and follows with Frandy DE LEON. He is currently on Bumex 1 mg t.i.d. and spironolactone. He reports he has run out of his spironolactone approximately 1 week ago and has only been taking his diuretic in the morning and around noon, has not taken his evening dose consistently due to nocturia. He has additionally been adding his old prescription for Lasix 40 mg daily for the past 2 weeks or so to try to increase his diuresis. He denies associated chest pain, cough, chills, fever, nausea, vomiting, diarrhea. Initial VS at presentation: 98? F, HR 80, RR 20, 115/52, and 96% on RA. ED workup showed: No leukocytosis, hemoglobin 9.7 (10.2 on 09/30/2024), INR 1.3, sodium 132, potassium 2.8, creatinine 2.12 and GFR 31 (2.14 and GFR 30 on 09/30/2024), glucose 112, calcium 7.7/albumin 2.8, BNP 35255. Venous LLE US showed no DVT. CXR showed right pleural effusion with associated basilar atelectasis and/or airspace disease. Acute on chronic congestive heart failure systolic diastolic. BNP 1160. Echo 04/2022 with LV function well reserved RV enlargement at least mild systolic dysfunction. Poorly visualized cardiac valves/no obvious valvular dysfunction. On Bumex 1 mg t.i.d. not taking as prescribed. Continue Bumex 1 mg IV t.i.d. patient also reported out of his spironolactone for past week which will be resumed along with metolazone. Continue to monitor renal function. Will increase his Bumex Hypokalemia replace and monitor Atrial fibrillation on Eliquis and metoprolol rate control with intermittent bradycardia. Metoprolol held cardiology consult. Stage IIIB chronic kidney disease. Baseline creatinine varies between 1.7-2.8. Currently at 2.1. Continue to monitor Status post right BKA in July 2024 secondary to chronic infection. Wound care to continue Hypothyroidism Synthroid Hypertension home medication AMELIA on CPAP Diet: Renal GI Prophylaxis: N/a DVT Prophylaxis: Eliquis IV fluids: None Lines/Tubes: Peripheral IV Code Status: Full code Subjective Date/time seen: 12/19/24 13:33 Interval history: Still feels swollen. Intermittent bladder spasms persist. Not much diuresis comparatively. Telemetry with intermittent bradycardia noted. Patient asymptomatic. Review of Systems Review of Systems: All systems reviewed & are unremarkable except as noted in HPI and below Exam Narrative: APPEARANCE: Well appearing, no pain, no distress, well-nourished. HEAD: normocephalic, atraumatic. EYES: PERRLA/EOMI, conjunctivae clear. NOSE: Normal no drainage THROAT: Pharynx clear, no exudate. NECK: Supple. No adenopathy, no masses. RESPIRATORY: Airway patent, respirations nonlabored. Clear to auscultation bilaterally, no rales, rhonchi, wheezing. CARDIOVASCULAR: Regular rate and rhythm without murmurs rubs or gallops. ABDOMINAL: Soft, nontender, nondistended, normal bowel sounds MUSCULOSKELETAL: Well-appearing stop on right leg, edema of left lower extremity NEURO: Alert. Cranial nerves II through XII intact. Grossly intact SKIN: Warm, dry. Normal Color Objective Data Vital Signs Vital Signs: Vital Signs - 24 hr 12/18/24 14:00 12/18/24 16:00 12/18/24 16:00 Temperature 98.3 F Pulse Rate 75 75 75 Respiratory Rate 21 H Blood Pressure 112/46 L Pulse Oximetry 98 Oxygen Delivery Oxygen Flow Rate 12/18/24 20:36 12/18/24 21:04 12/18/24 21:04 Temperature 97.6 F Pulse Rate 76 76 Respiratory Rate 20 Blood Pressure 114/40 L Pulse Oximetry 99 Oxygen Delivery Room Air Oxygen Flow Rate 12/18/24 21:04 12/18/24 23:08 12/19/24 00:00 Temperature Pulse Rate 76 74 Respiratory Rate Blood Pressure Pulse Oximetry 94 Oxygen Delivery Oxygen Flow Rate 12/19/24 03:33 12/19/24 04:00 12/19/24 04:23 Temperature 97.5 F L Pulse Rate 75 76 Respiratory Rate 20 Blood Pressure 115/55 L Pulse Oximetry 100 Oxygen Delivery CPAP Oxygen Flow Rate 12/19/24 08:00 12/19/24 09:29 12/19/24 10:30 Temperature 97.4 F L Pulse Rate 75 77 71 Respiratory Rate 20 Blood Pressure 103/46 L Pulse Oximetry 99 Oxygen Delivery Oxygen Flow Rate 12/19/24 10:41 12/19/24 10:44 Temperature Pulse Rate Respiratory Rate Blood Pressure Pulse Oximetry 95 95 Oxygen Delivery CPAP CPAP Oxygen Flow Rate 3 Intake/Output Intake/Output: Intake & Output 12/16/24 12/17/24 12/18/24 12/19/24 23:59 23:59 23:59 23:59 Intake Total 700 660 440 Output Total 200 1550 850 Balance 500 -890 -410 Meds/Results Medications: Active Medications Generic Name Dose Route Start Last Admin Trade Name Freq PRN Reason Stop Dose Admin Acetaminophen 500 mg 12/17/24 17:44 12/19/24 09:32 Acetaminophen 500 Mg Tablet PO 500 mg Q6H PRN Administration fever or pain 1-3 Allopurinol 100 mg 12/18/24 09:00 12/19/24 09:28 Allopurinol 100 Mg Tablet PO 100 mg DAILY ANGELA Administration Apixaban 5 mg 12/17/24 21:00 12/19/24 09:28 Apixaban 5 Mg Tablet PO 5 mg Q12HR ANGELA Administration Bumetanide 2 mg 12/19/24 13:00 Bumetanide Inj 1 Mg/4 Ml Vial IV PUSH TID ANGELA Calcitriol 0.25 mcg 12/18/24 17:45 12/18/24 17:05 Calcitriol 0.25 Mcg Capsule PO 0.25 mcg MoWeFr ANGELA Administration Docusate Sodium 100 mg 12/17/24 17:44 Docusate Sodium 100 Mg Capsule PO Q12H PRN Constipation Famotidine 20 mg 12/17/24 21:00 12/19/24 09:28 Famotidine 20 Mg Tablet PO 20 mg Q12HR ANGELA Administration Fluticasone Propionate 1 spray 12/17/24 17:44 Fluticasone Propionate 0.05% Na Spr 16 Gm Btl (*Bkc) NASAL DAILY PRN Congestion Gabapentin 300 mg 12/18/24 09:00 12/19/24 09:28 Gabapentin 300 Mg Capsule PO 300 mg TID ANGELA Administration Hyoscyamine 0.125 mg 12/18/24 03:43 12/18/24 17:04 Hyoscyamine Sulfate 0.125 Mg Tablet PO 0.125 mg Q4H PRN Administration bladder spasms Levothyroxine Sodium 200 mcg 12/18/24 06:30 12/19/24 06:08 Levothyroxine Sodium 100 Mcg Tablet PO 200 mcg DAILY@0630 ANGELA Administration Loratadine 10 mg 12/18/24 09:00 12/19/24 09:28 Loratadine 10 Mg Tablet PO 10 mg DAILY ANGELA Administration Metolazone 2.5 mg 12/19/24 09:00 12/19/24 09:33 Metolazone 2.5 Mg Tablet PO 2.5 mg MoWeFrSa ANGELA Administration Minoxidil 2.5 mg 12/18/24 09:00 12/19/24 09:28 Minoxidil 2.5 Mg Tablet PO 2.5 mg DAILY ANGELA Administration Oxybutynin Chloride 2.5 mg 12/18/24 09:21 12/19/24 09:32 Oxybutynin Chloride 2.5 Mg Tab PO 2.5 mg TID PRN Administration spasm Polyethylene Glycol 17 gm 12/17/24 17:44 12/19/24 09:42 Polyethylene Glycol 3350 17 Gm Powd.Pack PO 17 gm DAILY PRN Administration Constipation Potassium Chloride 10 meq 12/18/24 09:00 12/19/24 09:28 Potassium Chloride 10 Meq Er Tablet PO 10 meq DAILY ANGELA Administration Spironolactone 25 mg 12/18/24 09:00 12/19/24 09:28 Spironolactone 25 Mg Tablet PO 25 mg DAILY ANGELA Administration Tamsulosin HCl 0.4 mg 12/18/24 09:00 12/19/24 09:28 Tamsulosin Hcl 0.4 Mg Capsule PO 0.4 mg QAM ANGELA Administration Radiology Results: ITS Impressions Venous Doppler Study 12/17/24 13:43 IMPRESSION: 1. No left leg DVT. Chest X-Ray 12/17/24 14:14 IMPRESSION: 1. Right pleural effusion with associated basilar atelectasis and/or airspace disease. Labs Labs: Laboratory Results - last 24 hr 12/19/24 12/19/24 12/19/24 04:38 05:19 08:14 WBC 9.2 RBC 3.66 L Hgb 9.4 L Hct 35.1 L MCV 95.9 MCH 25.7 L MCHC 26.8 L RDW 15.4 H Plt Count 297 MPV 10.7 H Immature Gran % (Auto) 0.4 Neut % (Auto) 82.0 H Lymph % (Auto) 4.3 L [place] % (Auto) 9.4 H Eos % (Auto) 3.4 Baso % (Auto) 0.5 Lymph # (Auto) 0.40 L [place] # (Auto) 0.9 H Eos # (Auto) 0.3 Baso # (Auto) 0.1 Abs Immat Gran (auto) 0.04 H Absolute Neuts (auto) 7.6 H Absolute Nucleated RBC 0.000 Band Neutrophils % Not Reportable Nucleated RBC % 0.0 Platelet Estimate Adequate Polychromasia 1+ Hypochromasia 1+ Anisocytosis 1+ Target Cells Occasional Ovalocytes 1+ Schistocytes None seen Sodium 133 L Potassium 3.8 Chloride 98 Carbon Dioxide 31 H Anion Gap 4 BUN 65 H Creatinine 1.79 H Estim Creat Clear Calc 50 Estimated GFR 37 L Glucose 95 POC Capillary Glucose 81 Calcium 7.8 L Magnesium 2.6 H Total Bilirubin 0.3 AST 17 ALT < 6 L Alkaline Phosphatase 32 L Total Protein 4.4 L Albumin 2.6 L 12/19/24 11:30 WBC RBC Hgb Hct MCV MCH MCHC RDW Plt Count MPV Immature Gran % (Auto) Neut % (Auto) Lymph % (Auto) [place] % (Auto) Eos % (Auto) Baso % (Auto) Lymph # (Auto) [place] # (Auto) Eos # (Auto) Baso # (Auto) Abs Immat Gran (auto) Absolute Neuts (auto) Absolute Nucleated RBC Band Neutrophils % Nucleated RBC % Platelet Estimate Polychromasia Hypochromasia Anisocytosis Target Cells Ovalocytes Schistocytes Sodium Potassium Chloride Carbon Dioxide Anion Gap BUN Creatinine Estim Creat Clear Calc Estimated GFR Glucose POC Capillary Glucose 99 Calcium Magnesium Total Bilirubin AST ALT Alkaline Phosphatase Total Protein Albumin
--- NOTE | 2024-12-19 13:46 | PM.CNCAR ---
Assessment and Plan Assessment and plan (1) History of chronic CHF: Code(s): Z86.79 - Personal history of other diseases of the circulatory system Status: Chronic (2) Atrial fibrillation: Qualifiers: Atrial fibrillation type: longstanding persistent Qualified Code(s): I48.11 - Longstanding persistent atrial fibrillation Code(s): I48.91 - Unspecified atrial fibrillation Status: Chronic (3) Chronic venous insufficiency: Code(s): I87.2 - Venous insufficiency (chronic) (peripheral) Status: Acute Plan 74-year-old man with chronic diastolic dysfunction, chronic atrial fibrillation and right-sided heart failure. He presents with a typical exacerbation of this. He is receiving his Bumex intravenously which in the past has helped with this. I am seeing him primarily because he is more bradycardic than he has been in the past. I am going to discontinue his metoprolol tartrate and observe his telemetry. Ideally if his bradycardia improves I would like to resume some metoprolol, probably a modest dose of metoprolol succinate if he can tolerate that. Once again this very unfortunate but very nice man is in the hospital with recurrent volume overload which has been a chronic problem for him. Anirudh Wise MD [facility] History of Present Illness History of Present Illness Consult date/time: 12/19/24 13:46 Reason For Visit: Anasarca/Scrotal Edema/Shortness of Breath Narrative: This is a 74-year-old man who has a longstanding history of left ventricular diastolic dysfunction, chronic atrial fibrillation, chronic right ventricular dysfunction who is hospitalized with volume overload. He has been hospitalized here at [facility] [place] multiple times for this. I am seeing him today at the request of the hospitalist because of bradycardia that was noted on telemetry during this admission. It is interesting that I just saw this man in the office within the last couple of weeks and he was not reporting any significant shortness of breath he states that he came to the hospital again and was readmitted now with recurrent respiratory difficulty. He has in the past been treated in the hospital with intravenous diuretics for all long periods of time with improvement in his volume status. He always has some residual lower extremity edema that does not resolve. On 1 hospitalization within the last couple of years he actually had to be dialyzed for volume management for a while because his response to diuretics was fading. In any event on telemetry in the hospital he is in atrial fibrillation which is his chronic rhythm. He has a right bundle branch block and leftward axis pattern with a wide QRS which is also his chronic appearing EKG. On telemetry though he is having some asystolic pauses which are not symptomatic but are creating concern. His medications include chronic metoprolol tartrate 50 mg twice daily. This has been placed on hold. When I came into see him he was resting comfortably with his CPAP mask on watching television. Upon awakening and taking the mask off he has no other complaints. 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 Review of Systems Constitutional: Constitutional: Reports fatigue and Reports lethargy Eyes: Eyes: Reports no additional eye complaints ENT: Reports system reviewed and no additional complaints, except as documented Cardiovascular: Cardiovascular: Reports as per HPI Respiratory: Respiratory: Reports dyspnea Gastrointestinal: Gastrointestinal: Reports no additional gastrointestinal complaints Musculoskeletal: Musculoskeletal: Reports back pain Integumentary/Breasts: Skin/Breast: Reports system reviewed and no additional complaints, except as docu Neurologic: Reports system reviewed and no additional complaints, except as documented Endocrine: Endocrine: Reports no additional endocrine complaints Hematologic/Lymphatic: Hematologic/Lymphatic: Reports no additional hematologic/lymphatic complaints Allergic/Immunologic: Allergic/Immunologic: Reports no additional allergic/immunologic complaints [facility] Past Medical History Medical History Iron deficiency anemia Right foot infection s/p BKA(08/23) Venous stasis ulcer of right lower extremity Lymphedema due to chronic inflammation Constipation Stercoral ulcer of rectum Fecal impaction Proctitis Hyponatremia Peripheral vascular disease Morbid obesity with body mass index (BMI) of 40.0 or higher Neuropathic pain Gout Sepsis Chronic acquired lymphedema Chronic anemia Obstructive sleep apnea Atrial fibrillation Lymphedema of both lower extremities Environmental allergies Ocular rosacea Rosacea Chronic low back pain Chronic venous insufficiency GERD without esophagitis Chronic congestive heart failure Echocardiogram in May 2021 was technically difficult and showed normal LV systolic function with an EF of 60 to 65%, severely enlarged RV chamber with moderate to severely reduced RV systolic function, severe biatrial enlargement, and moderate pulmonary hypertension. Dyslipidemia Essential (primary) hypertension Peripheral polyneuropathy Hypothyroidism Surgical History Surgical History Hx of right BKA (~07/2024) S/P BKA (below knee amputation) 08/25/24 Right below-knee amputation Dr. Malone History of carpal tunnel release History of thoracic surgery Pericardial effusion s/p pericardial window thought secondary to minoxidil, in 2010 at [facility]. H/O eye surgery (~2005) [id number] [facility] History of foot surgery Left Foot History of cholecystectomy (2008) History of rotator cuff surgery Bilateral. History of discectomy (2012) Family History Family History Father Cardiovascular disease Grandparent Cancer Mother COPD (chronic obstructive pulmonary disease) Social History Social History Social History: Surrogate medical decision maker: Shyla Hurst, daughter. Code status: Full code. Caffeine-decalf coffee, diet soda Smoking packs per day: 2 Smoking cigarettes per day: 40.0 Years smoked: 20 Smoking pack-years: 40.00 Smoking status: Former smoker Second hand tobacco smoke exposure: No Additional smoking assessment comments: 1979 Alcohol intake: never Alcohol use details: One beer daily. Substance use: never Substance use type: does not use Do You Feel Safe in your Home?: Yes Lack of Transportation: No Lack of Food: Never True Current Housing: I Have Housing Concerned About Future Housing: No Difficulty Paying Gas/Electric Bills: No Difficulty Paying for Meds: No Currently Unemployed: No Education: Associate Degree Difficulty w/ Childcare or Family Care: No Living arrangements: alone Additional living arrangements comments: Lives in own home in [place]. Uses a motorized scooter and transfers with slide board. Occupation/Education: retired Additional occupation/education comments: Retired. 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 Spiritual care concerns: No Meds Home Medications and Allergies Home Medications ?Medication ?Instructions ?Recorded ?Confirmed ?Type apixaban 5 mg tablet (Eliquis) 5 mg PO Q12HR #180 tabs 01/19/22 12/17/24 Rx metoprolol tartrate 50 mg tablet 50 mg PO Q12HR #180 tabs 01/19/22 12/17/24 Rx acetazolamide 250 mg tablet 250 mg PO DAILY 11/19/22 12/17/24 History spironolactone 25 mg tablet 25 mg PO DAILY #30 tabs 04/06/23 12/17/24 Rx calcitriol 0.25 mcg capsule 0.25 mcg PO 3XW #36 caps 10/30/23 12/17/24 Rx allopurinol 100 mg tablet 100 mg PO DAILY #10 tabs 08/04/24 12/17/24 Rx famotidine 20 mg tablet 20 mg PO BID #180 tabs 08/04/24 12/17/24 Rx minoxidil 2.5 mg tablet 2.5 mg PO DAILY 08/04/24 12/17/24 History tamsulosin 0.4 mg capsule 0.4 mg PO QAM #90 caps 08/04/24 12/17/24 Rx acetaminophen 500 mg capsule 500 mg PO Q6H PRN fever or pain 09/15/24 12/17/24 History potassium chloride 10 mEq 10 meq PO DAILY 10/01/24 12/17/24 History capsule,extended release gabapentin 300 mg capsule 300 mg PO TID #270 caps 10/06/24 12/17/24 Rx bumetanide 1 mg tablet 1 mg PO TID 10/21/24 12/17/24 History fluticasone propionate 50 1 spray intranasal DAILY PRN 10/21/24 12/17/24 History mcg/actuation nasal Congestion spray,suspension (Flonase Allergy Relief) levothyroxine 200 mcg tablet 200 mcg PO DAILY 10/21/24 12/17/24 History loratadine 10 mg tablet (Claritin) 10 mg PO DAILY allergy symptoms 10/21/24 12/17/24 History polyethylene glycol 3350 17 17 g PO DAILY PRN Constipation 10/21/24 12/17/24 History gram/dose oral powder (Miralax) docusate sodium 100 mg capsule 100 mg PO Q12H PRN constipation 10/30/24 12/17/24 Rx #60 caps metolazone 2.5 mg tablet 2.5 mg PO .COMPLEX 12/17/24 12/17/24 History Allergies Allergy/AdvReac Type Severity Reaction Status Date / Time Sulfa (Sulfonamide Allergy Mild Rash Verified 11/16/24 13:43 Antibiotics) Penicillins Allergy Unknown SWELLING Verified 11/16/24 13:43 codeine AdvReac Mild N/V Verified 11/16/24 13:43 hydrocodone AdvReac Mild N/V Verified 11/16/24 13:43 oxycodone (From OxyContin) AdvReac Mild Nausea Verified 11/16/24 13:43 tramadol AdvReac Mild Nausea Verified 11/16/24 13:43 Vital Signs Vital Signs - 24 hr 12/18/24 14:00 12/18/24 16:00 12/18/24 16:00 Temperature 36.8 C Pulse Rate 75 75 75 Respiratory Rate 21 H Blood Pressure 112/46 L Pulse Oximetry 98 Oxygen Delivery Oxygen Flow Rate 12/18/24 20:36 12/18/24 21:04 12/18/24 21:04 Temperature 36.4 C Pulse Rate 76 76 Respiratory Rate 20 Blood Pressure 114/40 L Pulse Oximetry 99 Oxygen Delivery Room Air Oxygen Flow Rate 12/18/24 21:04 12/18/24 23:08 12/19/24 00:00 Temperature Pulse Rate 76 74 Respiratory Rate Blood Pressure Pulse Oximetry 94 Oxygen Delivery Oxygen Flow Rate 12/19/24 03:33 12/19/24 04:00 12/19/24 04:23 Temperature 36.4 C L Pulse Rate 75 76 Respiratory Rate 20 Blood Pressure 115/55 L Pulse Oximetry 100 Oxygen Delivery CPAP Oxygen Flow Rate 12/19/24 08:00 12/19/24 09:29 12/19/24 10:30 Temperature 36.3 C L Pulse Rate 75 77 71 Respiratory Rate 20 Blood Pressure 103/46 L Pulse Oximetry 99 Oxygen Delivery Oxygen Flow Rate 12/19/24 10:41 12/19/24 10:44 Temperature Pulse Rate Respiratory Rate Blood Pressure Pulse Oximetry 95 95 Oxygen Delivery CPAP CPAP Oxygen Flow Rate 3 Exam Const: General: comfortable and no acute distress Other: Morbidly obese man in good spirits wearing his CPAP mask upon arousal he is comfortable and in good spirits. HENMT: Mouth: Yes moist mucous membranes Eyes: Sclera: sclerae normal Neck: Neck: supple Resp: Effort & Inspection: normal respiratory effort Auscultation: clear to auscultation bilaterally Other: Breath sounds are distant given his body habitus but generally clear in both lung wolf Cardio: Rate: regular rate Rhythm: abnormal rhythm irregularly irregular GI: GI Palp: Yes Soft to palpation Auscultation: normal bowel sounds Skin: General skin exam: normal color Extrem: Other: Left lower extremity with chronic brawny edema Results Labs and Meds 12/19/24 04:38 12/19/24 05:19 Lab results: Cardiac Enzymes 12/19/24 Range/Units 05:19 AST 17 (17-59) U/L CBC 12/19/24 Range/Units 04:38 WBC 9.2 (4.5-10.0) K/mm3 RBC 3.66 L (4.6-6.20) M/mm3 Hgb 9.4 L (14.0-18.0) g/dL Hct 35.1 L (42.0-52.0) % Plt Count 297 (150-375) k/mm3 Lymph # (Auto) 0.40 L (0.9-3.2) K/mm3 [place] # (Auto) 0.9 H (0.1-0.6) K/mm3 Eos # (Auto) 0.3 (0-0.3) K/mm3 Baso # (Auto) 0.1 (0.0-0.1) K/mm3 Comprehensive Metabolic Panel 12/19/24 Range/Units 05:19 Sodium 133 L (137-145) mmol/L Potassium 3.8 (3.4-5.0) mmol/L Chloride 98 (98-107) mmol/L Carbon Dioxide 31 H (22-30) mmol/L BUN 65 H (9-20) mg/dL Creatinine 1.79 H (0.7-1.3) mg/dL Glucose 95 (65-110) mg/dL Calcium 7.8 L (8.4-10.2) mg/dL AST 17 (17-59) U/L ALT < 6 L (6-50) U/L Alkaline Phosphatase 32 L (38-126) U/L Total Protein 4.4 L (6.3-8.2) g/dL Albumin 2.6 L (3.5-5.1) g/dL Intake and Output 12/18/24 12/19/24 12/19/24 23:59 07:59 15:59 Intake Total 120 200 240 Output Total 1050 850 Balance -930 -650 240 Intake: Oral 120 200 240 Output: Catheter Urine 1050 850 Coude 1050 850 Patient Weight 12/19/24 23:59 Weight 155.4 kg
[2024-12-19] MEDS: BUMETANIDE INJ 1 MG/4 ML VIAL 2 MG IV PUSH ×2 (14:13→17:18)
[2024-12-20] VITALS (12 sets, daily range): BP systolic 104–122; BP diastolic 46–48; PULSE 72–88; RESP 20; TEMP 36.7–36.9; O2SAT 94–99
[2024-12-20 05:32] LABS: Hematocrit 34.3 % (42.0-52.0); Hemoglobin 9.4 g/dL (14.0-18.0); Immature Granulocyte Percent A 0.5 % (0-0.5); Lymphocytes Absolute Auto 0.66 K/mm3 (0.9-3.2); Mean Corpuscular HGB Conc 27.4 g/dl (32-36); Mean Corpuscular Hemoglobin 25.4 pg (26-34); Mean Corpuscular Volume 92.7 fl (80-100); Nucleated Red Blood Cells Absolute Auto 0.000 K/mm3 (0.0-0.012); Nucleated Red Blood Cells Perc 0.0 % (0.0-0.2); Platelet Count Result 279 k/mm3 (150-375); Red Blood Count 3.70 M/mm3 (4.6-6.20); White Blood Count 9.1 K/mm3 (4.5-10.0)
[2024-12-20 05:53] LABS: Albumin Level 2.7 g/dL (3.5-5.1); Alkaline Phosphatase 46 U/L (38-126); Anion Gap 3 mmol/L (4-12); Aspartate Amino Transferase 17 U/L (17-59); Bilirubin,Total 0.3 mg/dL (0.2-1.3); Blood Urea Nitrogen 59 mg/dL (9-20); Calcium 7.9 mg/dL (8.4-10.2); Carbon Dioxide 34 mmol/L (22-30); Chloride 95 mmol/L (98-107); Estimated CRCL calculation 52 ml/min; Estimated Glomerular Filt Rate 38; Glucose 95 mg/dL (65-110); Magnesium 2.6 mg/dL (1.6-2.3); Potassium 3.4 mmol/L (3.4-5.0); Sodium 132 mmol/L (137-145); Total Protein 4.8 g/dL (6.3-8.2)
[2024-12-20 05:56] LABS: Alanine Aminotransferase < 6 U/L (6-50)
[2024-12-20 06:28] LABS: Hypochromasia 1+
[2024-12-20 06:29] LABS: Ovalocytes 1+; Schistocytes None Seen; Tear Drop Cells Occasional
[2024-12-20] MEDS: LEVOTHYROXINE SODIUM 100 MCG TABLET 200 MCG PO (07:00)
[2024-12-20] MEDS: ACETAMINOPHEN 500 MG TABLET PO (07:57)
[2024-12-20] MEDS: oxyBUTYnin CHLORIDE 2.5 MG TAB PO ×3 (07:58→18:07)
[2024-12-20] MEDS: HYOSCYAMINE SULFATE 0.125 MG TABLET PO ×4 (07:58→22:20)
[2024-12-20] MEDS: APIXABAN 5 MG TABLET PO ×2 (08:00→20:09)
[2024-12-20] MEDS: POTASSIUM CHLORIDE 10 MEQ ER TABLET PO (08:01)
[2024-12-20] MEDS: SPIRONOLACTONE 25 MG TABLET PO (08:01)
[2024-12-20] MEDS: GABAPENTIN 300 MG CAPSULE PO ×3 (08:01→18:07)
[2024-12-20] MEDS: BUMETANIDE INJ 1 MG/4 ML VIAL 2 MG IV PUSH ×3 (08:01→18:07)
[2024-12-20] MEDS: TAMSULOSIN HCL 0.4 MG CAPSULE PO (08:01)
[2024-12-20] MEDS: FAMOTIDINE 20 MG TABLET PO ×2 (08:01→20:09)
[2024-12-20] MEDS: LORATADINE 10 MG TABLET PO (08:05)
--- NOTE | 2024-12-20 13:40 | PM.PNCARD ---
Progress Note: A&P Assessment and Plan (1) History of chronic CHF: Code(s): Z86.79 - Personal history of other diseases of the circulatory system Status: Chronic (2) Atrial fibrillation: Qualifiers: Atrial fibrillation type: longstanding persistent Qualified Code(s): I48.11 - Longstanding persistent atrial fibrillation Code(s): I48.91 - Unspecified atrial fibrillation Status: Chronic Plan Continue IV Bumex for his chronic right-sided failure. Continue to watch his telemetry without any metoprolol. Would still consider resuming a low dose of metoprolol succinate while he is still here but I am going to hold off on that today. Anirudh Wise MD [facility] Subjective Date/time seen: Date of service: 12/20/24 13:40 Interval history: Follow-up visit in this 74-year-old man with: Chronic diastolic dysfunction, chronic atrial fibrillation and chronic right-sided heart failure. He enters the hospital with volume overload he is once again improving with IV Bumex. Discussed heart rate control with the patient his heart rate is still fine without metoprolol on board. He is making a lot of urine Exam Const: General: comfortable and no acute distress Other: Morbidly obese gentleman supine in bed watching television HENMT: Mouth: Yes moist mucous membranes Eyes: Sclera: sclerae normal Neck: Neck: supple Other: Body habitus precludes assessment of JVD Resp: Auscultation: clear to auscultation bilaterally Cardio: Rate: regular rate Rhythm: abnormal rhythm irregularly irregular GI: GI Palp: Yes Soft to palpation Auscultation: normal bowel sounds Skin: General skin exam: normal color Neuro: Other: Alert and oriented x3 Extrem: Other: Right lower extremity amputation, left lower extremity edema appears to be improving Objective Data Vital Signs Vital Signs: Vital Signs - 24 hr 12/19/24 15:31 12/19/24 16:00 12/19/24 20:00 Temperature 36.3 C L Pulse Rate 77 76 80 Respiratory Rate 20 20 Blood Pressure 104/48 L Pulse Oximetry 98 94 Oxygen Delivery CPAP Oxygen Flow Rate 12/19/24 20:00 12/19/24 20:19 12/19/24 21:07 Temperature 37.0 C Pulse Rate 80 76 Respiratory Rate 20 Blood Pressure 109/44 L Pulse Oximetry 99 94 Oxygen Delivery CPAP Oxygen Flow Rate 12/19/24 21:08 12/20/24 00:00 12/20/24 02:56 Temperature Pulse Rate 77 Respiratory Rate Blood Pressure Pulse Oximetry 94 95 Oxygen Delivery CPAP CPAP Oxygen Flow Rate 3 12/20/24 04:00 12/20/24 08:00 12/20/24 08:03 Temperature Pulse Rate 76 88 Respiratory Rate Blood Pressure Pulse Oximetry Oxygen Delivery Room Air Oxygen Flow Rate 12/20/24 09:19 Temperature Pulse Rate Respiratory Rate Blood Pressure Pulse Oximetry 98 Oxygen Delivery Room Air Oxygen Flow Rate Intake/Output Intake/Output: Intake & Output 12/17/24 12/18/24 12/19/24 12/20/24 23:59 23:59 23:59 23:59 Intake Total 317 917 4482 590 Output Total 200 1550 3325 2750 Balance 500 -890 -1545 -2160 Meds/Results Medications: Active Medications Generic Name Dose Route Start Last Admin Trade Name Freq PRN Reason Stop Dose Admin Acetaminophen 650 mg 12/20/24 13:36 Acetaminophen 325 Mg Tablet PO Q4H PRN fever or pain 1-3 Allopurinol 100 mg 12/18/24 09:00 12/20/24 08:01 Allopurinol 100 Mg Tablet PO 100 mg DAILY ANGELA Administration Apixaban 5 mg 12/17/24 21:00 12/20/24 08:00 Apixaban 5 Mg Tablet PO 5 mg Q12HR ANGELA Administration Bumetanide 2 mg 12/19/24 13:00 12/20/24 13:08 Bumetanide Inj 1 Mg/4 Ml Vial IV PUSH 2 mg TID ANGELA Administration Calcitriol 0.25 mcg 12/18/24 17:45 12/18/24 17:05 Calcitriol 0.25 Mcg Capsule PO 0.25 mcg MoWeFr ANGELA Administration Docusate Sodium 100 mg 12/17/24 17:44 Docusate Sodium 100 Mg Capsule PO Q12H PRN Constipation Famotidine 20 mg 12/17/24 21:00 12/20/24 08:01 Famotidine 20 Mg Tablet PO 20 mg Q12HR ANGELA Administration Fluticasone Propionate 1 spray 12/17/24 17:44 Fluticasone Propionate 0.05% Na Spr 16 Gm Btl (*Bkc) NASAL DAILY PRN Congestion Gabapentin 300 mg 12/18/24 09:00 12/20/24 13:08 Gabapentin 300 Mg Capsule PO 300 mg TID ANGELA Administration Hyoscyamine 0.125 mg 12/18/24 03:43 12/20/24 13:07 Hyoscyamine Sulfate 0.125 Mg Tablet PO 0.125 mg Q4H PRN Administration bladder spasms Levothyroxine Sodium 200 mcg 12/18/24 06:30 12/20/24 07:00 Levothyroxine Sodium 100 Mcg Tablet PO 200 mcg DAILY@0630 ANGELA Administration Loratadine 10 mg 12/18/24 09:00 12/20/24 08:05 Loratadine 10 Mg Tablet PO 10 mg DAILY ANGELA Administration Metolazone 2.5 mg 12/19/24 09:00 12/19/24 09:33 Metolazone 2.5 Mg Tablet PO 2.5 mg MoWeFrSa ANGELA Administration Minoxidil 2.5 mg 12/18/24 09:00 12/20/24 08:00 Minoxidil 2.5 Mg Tablet PO 2.5 mg DAILY ANGELA Administration Oxybutynin Chloride 2.5 mg 12/18/24 09:21 12/20/24 13:08 Oxybutynin Chloride 2.5 Mg Tab PO 2.5 mg TID PRN Administration spasm Polyethylene Glycol 17 gm 12/17/24 17:44 12/20/24 07:57 Polyethylene Glycol 3350 17 Gm Powd.Pack PO 17 gm DAILY PRN Administration Constipation Potassium Chloride 10 meq 12/18/24 09:00 12/20/24 08:01 Potassium Chloride 10 Meq Er Tablet PO 10 meq DAILY ANGELA Administration Spironolactone 25 mg 12/18/24 09:00 12/20/24 08:01 Spironolactone 25 Mg Tablet PO 25 mg DAILY ANGELA Administration Tamsulosin HCl 0.4 mg 12/18/24 09:00 12/20/24 08:01 Tamsulosin Hcl 0.4 Mg Capsule PO 0.4 mg QAM ANGELA Administration Radiology Results: ITS Impressions Venous Doppler Study 12/17/24 13:43 IMPRESSION: 1. No left leg DVT. Chest X-Ray 12/17/24 14:14 IMPRESSION: 1. Right pleural effusion with associated basilar atelectasis and/or airspace disease. Labs Labs: Laboratory Results - last 24 hr 12/19/24 12/20/24 16:49 04:51 WBC 9.1 RBC 3.70 L Hgb 9.4 L Hct 34.3 L MCV 92.7 MCH 25.4 L MCHC 27.4 L RDW 15.3 H Plt Count 279 MPV 10.8 H Immature Gran % (Auto) 0.5 Neut % (Auto) 82.5 H Lymph % (Auto) 7.3 L Barton % (Auto) 5.1 Eos % (Auto) 4.1 Baso % (Auto) 0.5 Lymph # (Auto) 0.66 L Barton # (Auto) 0.5 Eos # (Auto) 0.4 H Baso # (Auto) 0.1 Abs Immat Gran (auto) 0.05 H Absolute Neuts (auto) 7.5 H Absolute Nucleated RBC 0.000 Band Neutrophils % Not Reportable Nucleated RBC % 0.0 Platelet Estimate Adequate Hypochromasia 1+ Tear Drop Cells Occasional Ovalocytes 1+ Schistocytes None seen Sodium 132 L Potassium 3.4 Chloride 95 L Carbon Dioxide 34 H Anion Gap 3 L BUN 59 H Creatinine 1.74 H Estim Creat Clear Calc 52 Estimated GFR 38 L Glucose 95 POC Capillary Glucose 93 Calcium 7.9 L Magnesium 2.6 H Total Bilirubin 0.3 AST 17 ALT < 6 L Alkaline Phosphatase 46 Total Protein 4.8 L Albumin 2.7 L
--- NOTE | 2024-12-20 14:05 | PM.IMPN ---
Progress Note: A&P Assessment and Plan (1) CHF (congestive heart failure): Qualifiers: Heart failure chronicity: chronic Heart failure type: diastolic Qualified Code(s): I50.32 - Chronic diastolic (congestive) heart failure Code(s): I50.9 - Heart failure, unspecified Status: Chronic (2) Hypokalemia: Code(s): E87.6 - Hypokalemia Status: Acute (3) Atrial fibrillation: Qualifiers: Atrial fibrillation type: longstanding persistent Qualified Code(s): I48.11 - Longstanding persistent atrial fibrillation Code(s): I48.91 - Unspecified atrial fibrillation Status: Chronic (4) Stage 3b chronic kidney disease: Code(s): N18.32 - Chronic kidney disease, stage 3b Status: Chronic (5) Hx of right BKA: Onset Date: ~07/2024 Code(s): Z89.511 - Acquired absence of right leg below knee Status: Chronic (6) Hypothyroidism: Qualifiers: Hypothyroidism type: acquired Qualified Code(s): E03.9 - Hypothyroidism, unspecified Code(s): E03.9 - Hypothyroidism, unspecified Status: Chronic (7) Essential (primary) hypertension: Code(s): I10 - Essential (primary) hypertension Status: Chronic (8) AMELIA (obstructive sleep apnea): Code(s): G47.33 - Obstructive sleep apnea (adult) (pediatric) Status: Chronic Plan 74 y/o M with PMH of right BKA, lymphedema, iron deficiency anemia, peripheral vascular disease, gout, atrial fibrillation, AMELIA, CHF, hypothyroidism, HLD, and HTN presents here with shortness of breath and worsening edema. The patient presents here from home via EMS on 12/17 for further evaluation of worsening shortness of breath, generalized weakness, and worsening edema. He reports onset of symptoms approximately 2 weeks ago. He reports edema has affected his left lower extremity and scrotum, estimates his scrotum has increased in size by 3-4x. He has a history of congestive heart failure and follows with Frandy DE LEON. He is currently on Bumex 1 mg t.i.d. and spironolactone. He reports he has run out of his spironolactone approximately 1 week ago and has only been taking his diuretic in the morning and around noon, has not taken his evening dose consistently due to nocturia. He has additionally been adding his old prescription for Lasix 40 mg daily for the past 2 weeks or so to try to increase his diuresis. He denies associated chest pain, cough, chills, fever, nausea, vomiting, diarrhea. Initial VS at presentation: 98? F, HR 80, RR 20, 115/52, and 96% on RA. ED workup showed: No leukocytosis, hemoglobin 9.7 (10.2 on 09/30/2024), INR 1.3, sodium 132, potassium 2.8, creatinine 2.12 and GFR 31 (2.14 and GFR 30 on 09/30/2024), glucose 112, calcium 7.7/albumin 2.8, BNP 37185. Venous LLE US showed no DVT. CXR showed right pleural effusion with associated basilar atelectasis and/or airspace disease. Acute on chronic congestive heart failure systolic diastolic. BNP 1160. Echo 04/2022 with LV function well reserved RV enlargement at least mild systolic dysfunction. Poorly visualized cardiac valves/no obvious valvular dysfunction. On Bumex 1 mg t.i.d. not taking as prescribed. Continue Bumex 1 mg IV t.i.d. patient also reported out of his spironolactone for past week which will be resumed along with metolazone. Continue to monitor renal function. Increase his Bumex to 2 mg t.i.d.. Metolazone to daily Hypokalemia replace and monitor Atrial fibrillation on Eliquis and metoprolol rate control with intermittent bradycardia. Metoprolol held cardiology consult. Stage IIIB chronic kidney disease. Baseline creatinine varies between 1.7-2.8. Currently at 2.1. Continue to monitor Status post right BKA in July 2024 secondary to chronic infection. Wound care to continue Hypothyroidism Synthroid Hypertension home medication AMELIA on CPAP Diet: Renal GI Prophylaxis: N/a DVT Prophylaxis: Eliquis IV fluids: None Lines/Tubes: Peripheral IV Code Status: Full code Subjective Date/time seen: 12/20/24 14:05 Interval history: No overnight events. Telemetry reviewed. No further sinus pauses noted. Review of Systems Review of Systems: All systems reviewed & are unremarkable except as noted in HPI and below Exam Narrative: APPEARANCE: Well appearing, no pain, no distress, well-nourished. HEAD: normocephalic, atraumatic. EYES: PERRLA/EOMI, conjunctivae clear. NOSE: Normal no drainage THROAT: Pharynx clear, no exudate. NECK: Supple. No adenopathy, no masses. RESPIRATORY: Airway patent, respirations nonlabored. Clear to auscultation bilaterally, no rales, rhonchi, wheezing. CARDIOVASCULAR: Regular rate and rhythm without murmurs rubs or gallops. ABDOMINAL: Soft, nontender, nondistended, normal bowel sounds MUSCULOSKELETAL: Well-appearing stop on right leg, edema of left lower extremity NEURO: Alert. Cranial nerves II through XII intact. Grossly intact SKIN: Warm, dry. Normal Color Objective Data Vital Signs Vital Signs: Vital Signs - 24 hr 12/19/24 15:31 12/19/24 16:00 12/19/24 20:00 Temperature 97.3 F L Pulse Rate 77 76 80 Respiratory Rate 20 20 Blood Pressure 104/48 L Pulse Oximetry 98 94 Oxygen Delivery CPAP Oxygen Flow Rate 12/19/24 20:00 12/19/24 20:19 12/19/24 21:07 Temperature 98.6 F Pulse Rate 80 76 Respiratory Rate 20 Blood Pressure 109/44 L Pulse Oximetry 99 94 Oxygen Delivery CPAP Oxygen Flow Rate 12/19/24 21:08 12/20/24 00:00 12/20/24 02:56 Temperature Pulse Rate 77 Respiratory Rate Blood Pressure Pulse Oximetry 94 95 Oxygen Delivery CPAP CPAP Oxygen Flow Rate 3 12/20/24 04:00 12/20/24 08:00 12/20/24 08:03 Temperature Pulse Rate 76 88 Respiratory Rate Blood Pressure Pulse Oximetry Oxygen Delivery Room Air Oxygen Flow Rate 12/20/24 09:19 Temperature Pulse Rate Respiratory Rate Blood Pressure Pulse Oximetry 98 Oxygen Delivery Room Air Oxygen Flow Rate Intake/Output Intake/Output: Intake & Output 12/17/24 12/18/24 12/19/24 12/20/24 23:59 23:59 23:59 23:59 Intake Total 216 157 3033 710 Output Total 200 1550 3325 4899 Balance 100 -395 -7103 -6225 Meds/Results Medications: Active Medications Generic Name Dose Route Start Last Admin Trade Name Freq PRN Reason Stop Dose Admin Acetaminophen 650 mg 12/20/24 13:36 Acetaminophen 325 Mg Tablet PO Q4H PRN fever or pain 1-3 Allopurinol 100 mg 12/18/24 09:00 12/20/24 08:01 Allopurinol 100 Mg Tablet PO 100 mg DAILY ANGELA Administration Apixaban 5 mg 12/17/24 21:00 12/20/24 08:00 Apixaban 5 Mg Tablet PO 5 mg Q12HR ANGELA Administration Bumetanide 2 mg 12/19/24 13:00 12/20/24 13:08 Bumetanide Inj 1 Mg/4 Ml Vial IV PUSH 2 mg TID ANGELA Administration Calcitriol 0.25 mcg 12/18/24 17:45 12/18/24 17:05 Calcitriol 0.25 Mcg Capsule PO 0.25 mcg MoWeFr [facility] Administration Docusate Sodium 100 mg 12/17/24 17:44 Docusate Sodium 100 Mg Capsule PO Q12H PRN Constipation Famotidine 20 mg 12/17/24 21:00 12/20/24 08:01 Famotidine 20 Mg Tablet PO 20 mg Q12HR ANGELA Administration Fluticasone Propionate 1 spray 12/17/24 17:44 Fluticasone Propionate 0.05% Na Spr 16 Gm Btl (*Bkc) NASAL DAILY PRN Congestion Gabapentin 300 mg 12/18/24 09:00 12/20/24 13:08 Gabapentin 300 Mg Capsule PO 300 mg TID [facility] Administration Hyoscyamine 0.125 mg 12/18/24 03:43 12/20/24 13:07 Hyoscyamine Sulfate 0.125 Mg Tablet PO 0.125 mg Q4H PRN Administration bladder spasms Levothyroxine Sodium 200 mcg 12/18/24 06:30 12/20/24 07:00 Levothyroxine Sodium 100 Mcg Tablet PO 200 mcg DAILY@0630 [facility] Administration Loratadine 10 mg 12/18/24 09:00 12/20/24 08:05 Loratadine 10 Mg Tablet PO 10 mg DAILY [facility] Administration Metolazone 2.5 mg 12/19/24 09:00 12/19/24 09:33 Metolazone 2.5 Mg Tablet PO 2.5 mg MoWeFrSa [facility] Administration Minoxidil 2.5 mg 12/18/24 09:00 12/20/24 08:00 Minoxidil 2.5 Mg Tablet PO 2.5 mg DAILY ANGELA Administration Oxybutynin Chloride 2.5 mg 12/18/24 09:21 12/20/24 13:08 Oxybutynin Chloride 2.5 Mg Tab PO 2.5 mg TID PRN Administration spasm Polyethylene Glycol 17 gm 12/17/24 17:44 12/20/24 07:57 Polyethylene Glycol 3350 17 Gm Powd.Pack PO 17 gm DAILY PRN Administration Constipation Potassium Chloride 10 meq 12/18/24 09:00 12/20/24 08:01 Potassium Chloride 10 Meq Er Tablet PO 10 meq DAILY ANGELA Administration Spironolactone 25 mg 12/18/24 09:00 12/20/24 08:01 Spironolactone 25 Mg Tablet PO 25 mg DAILY ANGELA Administration Tamsulosin HCl 0.4 mg 12/18/24 09:00 12/20/24 08:01 Tamsulosin Hcl 0.4 Mg Capsule PO 0.4 mg QAM ANGELA Administration Radiology Results: ITS Impressions Venous Doppler Study 12/17/24 13:43 IMPRESSION: 1. No left leg DVT. Chest X-Ray 12/17/24 14:14 IMPRESSION: 1. Right pleural effusion with associated basilar atelectasis and/or airspace disease. Labs Labs: Laboratory Results - last 24 hr 12/19/24 12/20/24 16:49 04:51 WBC 9.1 RBC 3.70 L Hgb 9.4 L Hct 34.3 L MCV 92.7 MCH 25.4 L MCHC 27.4 L RDW 15.3 H Plt Count 279 MPV 10.8 H Immature Gran % (Auto) 0.5 Neut % (Auto) 82.5 H Lymph % (Auto) 7.3 L [place] % (Auto) 5.1 Eos % (Auto) 4.1 Baso % (Auto) 0.5 Lymph # (Auto) 0.66 L [place] # (Auto) 0.5 Eos # (Auto) 0.4 H Baso # (Auto) 0.1 Abs Immat Gran (auto) 0.05 H Absolute Neuts (auto) 7.5 H Absolute Nucleated RBC 0.000 Band Neutrophils % Not Reportable Nucleated RBC % 0.0 Platelet Estimate Adequate Hypochromasia 1+ Tear Drop Cells Occasional Ovalocytes 1+ Schistocytes None seen Sodium 132 L Potassium 3.4 Chloride 95 L Carbon Dioxide 34 H Anion Gap 3 L BUN 59 H Creatinine 1.74 H Estim Creat Clear Calc 52 Estimated GFR 38 L Glucose 95 POC Capillary Glucose 93 Calcium 7.9 L Magnesium 2.6 H Total Bilirubin 0.3 AST 17 ALT < 6 L Alkaline Phosphatase 46 Total Protein 4.8 L Albumin 2.7 L
[2024-12-20] MEDS: ACETAMINOPHEN 325 MG TABLET 650 MG PO ×3 (14:13→22:20)
[2024-12-21] VITALS (11 sets, daily range): BP systolic 108–123; BP diastolic 45–50; PULSE 73–81; RESP 18–20; TEMP 36.2–36.8; O2SAT 96–100
[2024-12-21 05:06] LABS: Hematocrit 31.5 % (42.0-52.0); Hemoglobin 8.9 g/dL (14.0-18.0); Immature Granulocyte Percent A 0.5 % (0-0.5); Lymphocytes Absolute Auto 0.48 K/mm3 (0.9-3.2); Mean Corpuscular HGB Conc 28.3 g/dl (32-36); Mean Corpuscular Hemoglobin 25.6 pg (26-34); Mean Corpuscular Volume 90.5 fl (80-100); Nucleated Red Blood Cells Absolute Auto 0.000 K/mm3 (0.0-0.012); Nucleated Red Blood Cells Perc 0.0 % (0.0-0.2); Platelet Count Result 277 k/mm3 (150-375); Red Blood Count 3.48 M/mm3 (4.6-6.20); White Blood Count 8.1 K/mm3 (4.5-10.0)
[2024-12-21 05:38] LABS: Alanine Aminotransferase 7 U/L (6-50); Albumin Level 2.6 g/dL (3.5-5.1); Alkaline Phosphatase 43 U/L (38-126); Anion Gap 2 mmol/L (4-12); Aspartate Amino Transferase 16 U/L (17-59); Bilirubin,Total 0.3 mg/dL (0.2-1.3); Blood Urea Nitrogen 61 mg/dL (9-20); Calcium 8.1 mg/dL (8.4-10.2); Carbon Dioxide 36 mmol/L (22-30); Chloride 93 mmol/L (98-107); Estimated CRCL calculation 54 ml/min; Estimated Glomerular Filt Rate 41; Glucose 92 mg/dL (65-110); Magnesium 2.3 mg/dL (1.6-2.3); Potassium 3.4 mmol/L (3.4-5.0); Sodium 131 mmol/L (137-145); Total Protein 4.7 g/dL (6.3-8.2)
[2024-12-21 05:40] LABS: Anisocytosis 1+; Hypochromasia 1+; Schistocytes None Seen
[2024-12-21] MEDS: LEVOTHYROXINE SODIUM 100 MCG TABLET 200 MCG PO (06:31)
[2024-12-21] MEDS: ACETAMINOPHEN 325 MG TABLET 650 MG PO ×3 (06:32→21:24)
[2024-12-21] MEDS: HYOSCYAMINE SULFATE 0.125 MG TABLET PO ×2 (06:33→21:34)
[2024-12-21] MEDS: APIXABAN 5 MG TABLET PO ×2 (09:07→21:22)
[2024-12-21] MEDS: POTASSIUM CHLORIDE 10 MEQ ER TABLET PO (09:07)
[2024-12-21] MEDS: TAMSULOSIN HCL 0.4 MG CAPSULE PO (09:07)
[2024-12-21] MEDS: BUMETANIDE INJ 1 MG/4 ML VIAL 2 MG IV PUSH ×3 (09:07→17:38)
[2024-12-21] MEDS: FAMOTIDINE 20 MG TABLET PO ×2 (09:08→21:22)
[2024-12-21] MEDS: GABAPENTIN 300 MG CAPSULE PO ×3 (09:08→17:38)
[2024-12-21] MEDS: LORATADINE 10 MG TABLET PO (09:08)
[2024-12-21] MEDS: SPIRONOLACTONE 25 MG TABLET PO (09:08)
[2024-12-21] MEDS: POTASSIUM CHLORIDE 20 MEQ ER TABLET 40 MEQ PO (09:46)
--- NOTE | 2024-12-21 11:29 | PM.IMPN ---
Progress Note: A&P Assessment and Plan (1) CHF (congestive heart failure): Qualifiers: Heart failure chronicity: chronic Heart failure type: diastolic Qualified Code(s): I50.32 - Chronic diastolic (congestive) heart failure Code(s): I50.9 - Heart failure, unspecified Status: Chronic (2) Hypokalemia: Code(s): E87.6 - Hypokalemia Status: Acute (3) Atrial fibrillation: Qualifiers: Atrial fibrillation type: longstanding persistent Qualified Code(s): I48.11 - Longstanding persistent atrial fibrillation Code(s): I48.91 - Unspecified atrial fibrillation Status: Chronic (4) Stage 3b chronic kidney disease: Code(s): N18.32 - Chronic kidney disease, stage 3b Status: Chronic (5) Hx of right BKA: Onset Date: ~07/2024 Code(s): Z89.511 - Acquired absence of right leg below knee Status: Chronic (6) Hypothyroidism: Qualifiers: Hypothyroidism type: acquired Qualified Code(s): E03.9 - Hypothyroidism, unspecified Code(s): E03.9 - Hypothyroidism, unspecified Status: Chronic (7) Essential (primary) hypertension: Code(s): I10 - Essential (primary) hypertension Status: Chronic (8) AMELIA (obstructive sleep apnea): Code(s): G47.33 - Obstructive sleep apnea (adult) (pediatric) Status: Chronic Plan 74 y/o M with PMH of right BKA, lymphedema, iron deficiency anemia, peripheral vascular disease, gout, atrial fibrillation, AMELIA, CHF, hypothyroidism, HLD, and HTN presents here with shortness of breath and worsening edema. The patient presents here from home via EMS on 12/17 for further evaluation of worsening shortness of breath, generalized weakness, and worsening edema. He reports onset of symptoms approximately 2 weeks ago. He reports edema has affected his left lower extremity and scrotum, estimates his scrotum has increased in size by 3-4x. He has a history of congestive heart failure and follows with Frandy [facility] LE[facility]. He is currently on Bumex 1 mg t.i.d. and spironolactone. He reports he has run out of his spironolactone approximately 1 week ago and has only been taking his diuretic in the morning and around noon, has not taken his evening dose consistently due to nocturia. He has additionally been adding his old prescription for Lasix 40 mg daily for the past 2 weeks or so to try to increase his diuresis. He denies associated chest pain, cough, chills, fever, nausea, vomiting, diarrhea. Initial VS at presentation: 98? F, HR 80, RR 20, 115/52, and 96% on RA. ED workup showed: No leukocytosis, hemoglobin 9.7 (10.2 on 09/30/2024), INR 1.3, sodium 132, potassium 2.8, creatinine 2.12 and GFR 31 (2.14 and GFR 30 on 09/30/2024), glucose 112, calcium 7.7/albumin 2.8, BNP 96753. Venous LLE US showed no DVT. CXR showed right pleural effusion with associated basilar atelectasis and/or airspace disease. Acute on chronic congestive heart failure systolic diastolic. BNP 1160. Echo 04/2022 with LV function well reserved RV enlargement at least mild systolic dysfunction. Poorly visualized cardiac valves/no obvious valvular dysfunction. On Bumex 1 mg t.i.d. not taking as prescribed. Continue Bumex 1 mg IV t.i.d. patient also reported out of his spironolactone for past week which will be resumed along with metolazone. Continue to monitor renal function. Increase his Bumex to 2 mg t.i.d.. Metolazone to daily Hypokalemia replace and monitor Atrial fibrillation on Eliquis and metoprolol rate control with intermittent bradycardia. Metoprolol held cardiology consult. Anticipate resumption of metoprolol succinate perhaps lower dose during this hospital stay Stage IIIB chronic kidney disease. Baseline creatinine varies between 1.7-2.8. Currently at 2.1. Continue to monitor Status post right BKA in July 2024 secondary to chronic infection. Wound care to continue Bladder spasms with Miller in situ. On Levsin p.r.n. Hypothyroidism Synthroid Hypertension home medication AMELIA on CPAP Diet: Renal GI Prophylaxis: N/a DVT Prophylaxis: Eliquis IV fluids: None Lines/Tubes: Peripheral IV Code Status: Full code Subjective Date/time seen: 12/21/24 11:29 Interval history: No overnight events. Continues to have bladder spasms. Telemetry reviewed no further sinus pauses noted. Good diuresis.-6 L since admission. Still volume overloaded Review of Systems Review of Systems: All systems reviewed & are unremarkable except as noted in HPI and below Exam Narrative: APPEARANCE: Well appearing, no pain, no distress, well-nourished. HEAD: normocephalic, atraumatic. EYES: PERRLA/EOMI, conjunctivae clear. NOSE: Normal no drainage THROAT: Pharynx clear, no exudate. NECK: Supple. No adenopathy, no masses. RESPIRATORY: Airway patent, respirations nonlabored. Clear to auscultation bilaterally, no rales, rhonchi, wheezing. CARDIOVASCULAR: Regular rate and rhythm without murmurs rubs or gallops. ABDOMINAL: Soft, nontender, nondistended, normal bowel sounds MUSCULOSKELETAL: Well-appearing stop on right leg, edema of left lower extremity NEURO: Alert. Cranial nerves II through XII intact. Grossly intact SKIN: Warm, dry. Normal Color Objective Data Vital Signs Vital Signs: Vital Signs - 24 hr 12/20/24 12:03 12/20/24 15:21 12/20/24 16:03 Temperature 98.1 F Pulse Rate 72 78 73 Respiratory Rate 20 Blood Pressure 122/48 L Pulse Oximetry 99 Oxygen Delivery Oxygen Flow Rate 12/20/24 20:00 12/20/24 20:00 12/20/24 20:36 Temperature Pulse Rate 75 Respiratory Rate Blood Pressure Pulse Oximetry 94 Oxygen Delivery CPAP CPAP Oxygen Flow Rate 12/20/24 20:43 12/20/24 21:22 12/21/24 00:00 Temperature 98.5 F Pulse Rate 76 74 Respiratory Rate 20 Blood Pressure 104/46 L Pulse Oximetry 99 97 Oxygen Delivery CPAP Oxygen Flow Rate 3 12/21/24 02:10 12/21/24 04:00 12/21/24 05:48 Temperature 97.2 F L Pulse Rate 75 74 Respiratory Rate 20 Blood Pressure 112/50 L Pulse Oximetry 96 98 Oxygen Delivery CPAP Oxygen Flow Rate Intake/Output Intake/Output: Intake & Output 12/18/24 12/19/24 12/20/24 12/21/24 23:59 23:59 23:59 23:59 Intake Total 660 1780 960 440 Output Total 1550 3325 4500 1400 Equrfwc -281 -2072 -9650 -960 Meds/Results Medications: Active Medications Generic Name Dose Route Start Last Admin Trade Name Freq PRN Reason Stop Dose Admin Acetaminophen 650 mg 12/20/24 13:36 12/21/24 06:32 Acetaminophen 325 Mg Tablet PO 650 mg Q4H PRN Administration fever or pain 1-3 Allopurinol 100 mg 12/18/24 09:00 12/21/24 09:08 Allopurinol 100 Mg Tablet PO 100 mg DAILY ANGELA Administration Apixaban 5 mg 12/17/24 21:00 12/21/24 09:07 Apixaban 5 Mg Tablet PO 5 mg Q12HR ANGELA Administration Bumetanide 2 mg 12/19/24 13:00 12/21/24 09:07 Bumetanide Inj 1 Mg/4 Ml Vial IV PUSH 2 mg TID ANGELA Administration Calcitriol 0.25 mcg 12/18/24 17:45 12/18/24 17:05 Calcitriol 0.25 Mcg Capsule PO 0.25 mcg MoWeFr ANGELA Administration Docusate Sodium 100 mg 12/17/24 17:44 Docusate Sodium 100 Mg Capsule PO Q12H PRN Constipation Famotidine 20 mg 12/17/24 21:00 12/21/24 09:08 Famotidine 20 Mg Tablet PO 20 mg Q12HR ANGELA Administration Fluticasone Propionate 1 spray 12/17/24 17:44 Fluticasone Propionate 0.05% Na Spr 16 Gm Btl (*Bkc) NASAL DAILY PRN Congestion Gabapentin 300 mg 12/18/24 09:00 12/21/24 09:08 Gabapentin 300 Mg Capsule PO 300 mg TID ANGELA Administration Hyoscyamine 0.125 mg 12/18/24 03:43 12/21/24 06:33 Hyoscyamine Sulfate 0.125 Mg Tablet PO 0.125 mg Q4H PRN Administration bladder spasms Levothyroxine Sodium 200 mcg 12/18/24 06:30 12/21/24 06:31 Levothyroxine Sodium 100 Mcg Tablet PO 200 mcg DAILY@0630 ANGELA Administration Loratadine 10 mg 12/18/24 09:00 12/21/24 09:08 Loratadine 10 Mg Tablet PO 10 mg DAILY ANGELA Administration Metolazone 2.5 mg 12/20/24 14:10 12/21/24 09:08 Metolazone 2.5 Mg Tablet PO 2.5 mg QAM ANGELA Administration Minoxidil 2.5 mg 12/18/24 09:00 12/21/24 09:07 Minoxidil 2.5 Mg Tablet PO 2.5 mg DAILY ANGELA Administration Oxybutynin Chloride 2.5 mg 12/18/24 09:21 12/20/24 18:07 Oxybutynin Chloride 2.5 Mg Tab PO 2.5 mg TID PRN Administration spasm Polyethylene Glycol 17 gm 12/17/24 17:44 12/20/24 07:57 Polyethylene Glycol 3350 17 Gm Powd.Pack PO 17 gm DAILY PRN Administration Constipation Potassium Chloride 10 meq 12/18/24 09:00 12/21/24 09:07 Potassium Chloride 10 Meq Er Tablet PO 10 meq DAILY ANGELA Administration Spironolactone 25 mg 12/18/24 09:00 12/21/24 09:08 Spironolactone 25 Mg Tablet PO 25 mg DAILY ANGELA Administration Tamsulosin HCl 0.4 mg 12/18/24 09:00 12/21/24 09:07 Tamsulosin Hcl 0.4 Mg Capsule PO 0.4 mg QAM ANGELA Administration Radiology Results: ITS Impressions Venous Doppler Study 12/17/24 13:43 IMPRESSION: 1. No left leg DVT. Chest X-Ray 12/17/24 14:14 IMPRESSION: 1. Right pleural effusion with associated basilar atelectasis and/or airspace disease. Labs Labs: Laboratory Results - last 24 hr 12/21/24 04:48 WBC 8.1 RBC 3.48 L Hgb 8.9 L Hct 31.5 L MCV 90.5 MCH 25.6 L MCHC 28.3 L RDW 15.3 H Plt Count 277 MPV 10.4 Immature Gran % (Auto) 0.5 Neut % (Auto) 78.1 H Lymph % (Auto) 5.9 L [place] % (Auto) 8.7 H Eos % (Auto) 5.9 H Baso % (Auto) 0.9 Lymph # (Auto) 0.48 L [place] # (Auto) 0.7 H Eos # (Auto) 0.5 H Baso # (Auto) 0.1 Abs Immat Gran (auto) 0.04 H Absolute Neuts (auto) 6.3 Absolute Nucleated RBC 0.000 Band Neutrophils % Not Reportable Nucleated RBC % 0.0 Platelet Estimate Adequate Hypochromasia 1+ Anisocytosis 1+ Schistocytes None seen Sodium 131 L Potassium 3.4 Chloride 93 L Carbon Dioxide 36 H Anion Gap 2 L BUN 61 H Creatinine 1.66 H Estim Creat Clear Calc 54 Estimated GFR 41 L Glucose 92 Calcium 8.1 L Magnesium 2.3 Total Bilirubin 0.3 AST 16 L ALT 7 Alkaline Phosphatase 43 Total Protein 4.7 L Albumin 2.6 L
--- NOTE | 2024-12-21 12:03 | PM.PNCARD ---
Progress Note: A&P Assessment and Plan (1) Venous stasis dermatitis of both lower extremities: Code(s): I87.2 - Venous insufficiency (chronic) (peripheral) Status: Acute (2) Atrial fibrillation: Qualifiers: Atrial fibrillation type: longstanding persistent Qualified Code(s): I48.11 - Longstanding persistent atrial fibrillation Code(s): I48.91 - Unspecified atrial fibrillation Status: Chronic (3) Acute on chronic diastolic heart failure: Code(s): I50.33 - Acute on chronic diastolic (congestive) heart failure Status: Acute (4) Bradycardia: Code(s): R00.1 - Bradycardia, unspecified Status: Acute Plan Diagnosis: Acute on chronic diastolic and right ventricular failure; echo showed normal LVEF of 65-70%, RV pressure and volume overload, mild MR, mild TR, mild pulmonary hypertension with PASP of 40 mm Hg Bradycardia, pauses on telemetry Chronic atrial fibrillation-telemetry shows AFib with rates in the 70s Hypokalemia with potassium of 3.4 Hypertension-controlled PVD CKD with baseline creatinine 1.5-2 Plan: Beta-chuck was stopped due to bradycardia. Avoid any AV orquidea blocking agents. Telemetry now shows AFib with rates in the 70s By exam he appears in fluid overload. IV diuresis with IV Bumex 3 mg t.i.d.. Check daily weight, ins and outs, renal function Continue metolazone Continue spironolactone 25 mg daily Add empagliflozin 10 mg daily Check and replace electrolytes to keep potassium greater than 4 and magnesium greater than 2 Continue apixaban for anticoagulation for atrial fibrillation Subjective Date/time seen: 12/21/24 12:03 Interval history: Reason for encounter: Acute on chronic diastolic and right heart failure, bradycardia and pauses Relevant history: 74-year-old male with history of diastolic dysfunction, chronic atrial fibrillation, chronic right ventricular dysfunction with recurrent heart failure hospitalizations, h/o right [id number] amputation for infection was admitted with symptoms of shortness of breath and lower extremity swelling. Cardiology was consulted for management of acute on chronic diastolic and right ventricular failure and bradycardia, pauses noted on telemetry during this admission. He has a right bundle branch block and leftward axis pattern with a wide QRS on EKG which is chronic. Interval history: Patient states he is still short of breath and his legs are swollen. No chest pain. Telemetry shows atrial fibrillation with rates in the 70s. Review of Systems Cardiovascular: Comments: As per HPI Respiratory: Comments: As per HPI Exam Narrative: General: Alert oriented x3, no acute distress Neck: Supple, JVD + Chest: Bilaterally clear to auscultation, no rales or rhonchi Cardiac: S1, S2 +, regular rate, regular rhythm, no murmurs or rubs Extremities: Bilateral lower extremity edema 1-3+, no skin rash Neurologic: Alert and oriented x3, no focal neurological deficits Objective Data Vital Signs Vital Signs: Vital Signs - 24 hr 12/20/24 15:21 12/20/24 16:03 12/20/24 20:00 Temperature 36.7 C Pulse Rate 78 73 Respiratory Rate 20 Blood Pressure 122/48 L Pulse Oximetry 99 Oxygen Delivery CPAP Oxygen Flow Rate 12/20/24 20:00 12/20/24 20:36 12/20/24 20:43 Temperature 36.9 C Pulse Rate 75 76 Respiratory Rate 20 Blood Pressure 104/46 L Pulse Oximetry 94 99 Oxygen Delivery CPAP Oxygen Flow Rate 12/20/24 21:22 12/21/24 00:00 12/21/24 02:10 Temperature Pulse Rate 74 Respiratory Rate Blood Pressure Pulse Oximetry 97 96 Oxygen Delivery CPAP CPAP Oxygen Flow Rate 3 12/21/24 04:00 12/21/24 05:48 Temperature 36.2 C L Pulse Rate 75 74 Respiratory Rate 20 Blood Pressure 112/50 L Pulse Oximetry 98 Oxygen Delivery Oxygen Flow Rate Intake/Output Intake/Output: Intake & Output 12/18/24 12/19/24 12/20/24 12/21/24 23:59 23:59 23:59 23:59 Intake Total 660 1780 960 440 Output Total 1550 3325 4500 1400 [facility] -890 [phone] Meds/Results Medications: Active Medications Generic Name Dose Route Start Last Admin Trade Name Freq PRN Reason Stop Dose Admin Acetaminophen 650 mg 12/20/24 13:36 12/21/24 06:32 Acetaminophen 325 Mg Tablet PO 650 mg Q4H PRN Administration fever or pain 1-3 Allopurinol 100 mg 12/18/24 09:00 12/21/24 09:08 Allopurinol 100 Mg Tablet PO 100 mg DAILY ANGELA Administration Apixaban 5 mg 12/17/24 21:00 12/21/24 09:07 Apixaban 5 Mg Tablet PO 5 mg Q12HR ANGELA Administration Bumetanide 2 mg 12/19/24 13:00 12/21/24 09:07 Bumetanide Inj 1 Mg/4 Ml Vial IV PUSH 2 mg TID ANGELA Administration Calcitriol 0.25 mcg 12/18/24 17:45 12/18/24 17:05 Calcitriol 0.25 Mcg Capsule PO 0.25 mcg MoWeFr [facility] Administration Docusate Sodium 100 mg 12/17/24 17:44 Docusate Sodium 100 Mg Capsule PO Q12H PRN Constipation Famotidine 20 mg 12/17/24 21:00 12/21/24 09:08 Famotidine 20 Mg Tablet PO 20 mg Q12HR ANGELA Administration Fluticasone Propionate 1 spray 12/17/24 17:44 Fluticasone Propionate 0.05% Na Spr 16 Gm Btl (*Bkc) NASAL DAILY PRN Congestion Gabapentin 300 mg 12/18/24 09:00 12/21/24 09:08 Gabapentin 300 Mg Capsule PO 300 mg TID ANGELA Administration Hyoscyamine 0.125 mg 12/18/24 03:43 12/21/24 06:33 Hyoscyamine Sulfate 0.125 Mg Tablet PO 0.125 mg Q4H PRN Administration bladder spasms Levothyroxine Sodium 200 mcg 12/18/24 06:30 12/21/24 06:31 Levothyroxine Sodium 100 Mcg Tablet PO 200 mcg DAILY@0630 ANGELA Administration Loratadine 10 mg 12/18/24 09:00 12/21/24 09:08 Loratadine 10 Mg Tablet PO 10 mg DAILY AGNELA Administration Metolazone 2.5 mg 12/20/24 14:10 12/21/24 09:08 Metolazone 2.5 Mg Tablet PO 2.5 mg QAM [facility] Administration Minoxidil 2.5 mg 12/18/24 09:00 12/21/24 09:07 Minoxidil 2.5 Mg Tablet PO 2.5 mg DAILY ANGELA Administration Oxybutynin Chloride 5 mg 12/21/24 11:31 Oxybutynin Chloride 5 Mg Tablet PO TID PRN spasm Polyethylene Glycol 17 gm 12/17/24 17:44 12/20/24 07:57 Polyethylene Glycol 3350 17 Gm Powd.Pack PO 17 gm DAILY PRN Administration Constipation Potassium Chloride 10 meq 12/18/24 09:00 12/21/24 09:07 Potassium Chloride 10 Meq Er Tablet PO 10 meq DAILY ANGELA Administration Spironolactone 25 mg 12/18/24 09:00 12/21/24 09:08 Spironolactone 25 Mg Tablet PO 25 mg DAILY ANGELA Administration Tamsulosin HCl 0.4 mg 12/18/24 09:00 12/21/24 09:07 Tamsulosin Hcl 0.4 Mg Capsule PO 0.4 mg QAM ANGELA Administration Radiology Results: ITS Impressions Venous Doppler Study 12/17/24 13:43 IMPRESSION: 1. No left leg DVT. Chest X-Ray 12/17/24 14:14 IMPRESSION: 1. Right pleural effusion with associated basilar atelectasis and/or airspace disease. Labs Labs: Laboratory Results - last 24 hr 12/21/24 04:48 WBC 8.1 RBC 3.48 L Hgb 8.9 L Hct 31.5 L MCV 90.5 MCH 25.6 L MCHC 28.3 L RDW 15.3 H Plt Count 277 MPV 10.4 Immature Gran % (Auto) 0.5 Neut % (Auto) 78.1 H Lymph % (Auto) 5.9 L [place] % (Auto) 8.7 H Eos % (Auto) 5.9 H Baso % (Auto) 0.9 Lymph # (Auto) 0.48 L [place] # (Auto) 0.7 H Eos # (Auto) 0.5 H Baso # (Auto) 0.1 Abs Immat Gran (auto) 0.04 H Absolute Neuts (auto) 6.3 Absolute Nucleated RBC 0.000 Band Neutrophils % Not Reportable Nucleated RBC % 0.0 Platelet Estimate Adequate Hypochromasia 1+ Anisocytosis 1+ Schistocytes None seen Sodium 131 L Potassium 3.4 Chloride 93 L Carbon Dioxide 36 H Anion Gap 2 L BUN 61 H Creatinine 1.66 H Estim Creat Clear Calc 54 Estimated GFR 41 L Glucose 92 Calcium 8.1 L Magnesium 2.3 Total Bilirubin 0.3 AST 16 L ALT 7 Alkaline Phosphatase 43 Total Protein 4.7 L Albumin 2.6 L
[2024-12-22] VITALS (10 sets, daily range): BP systolic 114–115; BP diastolic 50–54; PULSE 71–86; RESP 18–20; TEMP 36.4–36.6; O2SAT 91–99
[2024-12-22 05:21] LABS: Hematocrit 30.8 % (42.0-52.0); Hemoglobin 8.6 g/dL (14.0-18.0); Immature Granulocyte Percent A 0.4 % (0-0.5); Lymphocytes Absolute Auto 0.46 K/mm3 (0.9-3.2); Mean Corpuscular HGB Conc 27.9 g/dl (32-36); Mean Corpuscular Hemoglobin 25.5 pg (26-34); Mean Corpuscular Volume 91.4 fl (80-100); Nucleated Red Blood Cells Absolute Auto 0.000 K/mm3 (0.0-0.012); Nucleated Red Blood Cells Perc 0.0 % (0.0-0.2); Platelet Count Result 288 k/mm3 (150-375); Red Blood Count 3.37 M/mm3 (4.6-6.20); White Blood Count 6.8 K/mm3 (4.5-10.0)
[2024-12-22 05:31] LABS: Potassium 3.4 mmol/L (3.4-5.0)
[2024-12-22 05:41] LABS: Alanine Aminotransferase 7 U/L (6-50); Albumin Level 2.5 g/dL (3.5-5.1); Alkaline Phosphatase 46 U/L (38-126); Anion Gap 1 mmol/L (4-12); Aspartate Amino Transferase 19 U/L (17-59); Bilirubin,Total 0.2 mg/dL (0.2-1.3); Blood Urea Nitrogen 57 mg/dL (9-20); Calcium 8.3 mg/dL (8.4-10.2); Carbon Dioxide 39 mmol/L (22-30); Chloride 92 mmol/L (98-107); Estimated CRCL calculation 54 ml/min; Estimated Glomerular Filt Rate 40; Glucose 87 mg/dL (65-110); Magnesium 2.4 mg/dL (1.6-2.3); Potassium 3.4 mmol/L (3.4-5.0); Sodium 132 mmol/L (137-145); Total Protein 4.6 g/dL (6.3-8.2)
[2024-12-22 05:44] LABS: Anisocytosis 1+; Hypochromasia 1+; Tear Drop Cells Occasional
[2024-12-22 05:45] LABS: Ovalocytes 1+; Schistocytes None Seen
[2024-12-22] MEDS: LEVOTHYROXINE SODIUM 100 MCG TABLET 200 MCG PO (07:06)
[2024-12-22] MEDS: ACETAMINOPHEN 325 MG TABLET 650 MG PO ×4 (07:06→21:51)
--- NOTE | 2024-12-22 08:31 | P.PNCA_ITS ---
Progress Note: A&P Assessment and Plan (1) Venous stasis dermatitis of both lower extremities: Code(s): I87.2 - Venous insufficiency (chronic) (peripheral) Status: Acute (2) Atrial fibrillation: Qualifiers: Atrial fibrillation type: longstanding persistent Qualified Code(s): I48.11 - Longstanding persistent atrial fibrillation Code(s): I48.91 - Unspecified atrial fibrillation Status: Chronic (3) Acute on chronic diastolic heart failure: Code(s): I50.33 - Acute on chronic diastolic (congestive) heart failure Status: Acute (4) Bradycardia: Code(s): R00.1 - Bradycardia, unspecified Status: Acute Plan Diagnosis: Acute on chronic diastolic and right ventricular failure; echo showed normal LVEF of 65-70%, RV pressure and volume overload, mild MR, mild TR, mild pulmonary hypertension with PASP of 40 mm Hg Bradycardia, pauses on telemetry Chronic atrial fibrillation-telemetry shows AFib with rates in the 70s Hypokalemia with potassium of 3.4 Hypertension-controlled PVD CKD with baseline creatinine 1.5-2 Plan: Beta-chuck was stopped due to bradycardia. Avoid any AV orquidea blocking agents. Telemetry now shows AFib with rates in the 70s By exam he continues to be fluid overload but is slowly improving. Continue IV diuresis with IV Bumex 3 mg t.i.d.. Check daily weight, ins and outs, renal function Continue metolazone Continue spironolactone 25 mg daily Add empagliflozin 10 mg daily Check and replace electrolytes to keep potassium greater than 4 and magnesium greater than 2 Continue apixaban for anticoagulation for atrial fibrillation Subjective Date/time seen: 12/22/24 08:31 Interval history: Reason for encounter: Acute on chronic diastolic and right heart failure, bradycardia and pauses Relevant history: 74-year-old male with history of diastolic dysfunction, chronic atrial fibrillation, chronic right ventricular dysfunction with recurrent heart failure hospitalizations, h/o right [id number] amputation for infection was admitted with symptoms of shortness of breath and lower extremity swelling. Cardiology was consulted for management of acute on chronic diastolic and right ventricular failure and bradycardia, pauses noted on telemetry during this admission. He has a right bundle branch block and leftward axis pattern with a wide QRS on EKG which is chronic. Interval history: Patient states he is still short of breath and his legs are swollen. No chest pain. Telemetry shows atrial fibrillation with rates in the 70s. Date of service 12/22/2024: Reports some improvement in his swelling. Still has shortness of breath and wears his CPAP throughout the day. No chest pain. Review of Systems Constitutional: Constitutional: Reports fatigue and Reports lethargy Eyes: Eyes: Reports no additional eye complaints ENT: Reports system reviewed and no additional complaints, except as documented Cardiovascular: Cardiovascular: Reports as per HPI and Reports dyspnea Respiratory: Respiratory: Reports dyspnea Gastrointestinal: Gastrointestinal: Reports no additional gastrointestinal complaints Musculoskeletal: Musculoskeletal: Reports back pain Integumentary/Breasts: Skin/Breast: Reports system reviewed and no additional complaints, except as docu Neurologic: Reports system reviewed and no additional complaints, except as documented Endocrine: Endocrine: Reports no additional endocrine complaints and Reports fatigue Hematologic/Lymphatic: Hematologic/Lymphatic: Reports no additional hematologic/lymphatic complaints Allergic/Immunologic: Allergic/Immunologic: Reports no additional allergic/immunologic complaints Exam Const: General: comfortable and no acute distress Other: Morbidly obese gentleman supine in bed watching television with CPAP in place HENMT: Mouth: Yes moist mucous membranes Eyes: Sclera: sclerae normal Neck: Neck: supple Other: Body habitus precludes assessment of JVD Resp: Effort & Inspection: normal respiratory effort Auscultation: clear to auscultation bilaterally Other: Breath sounds are distant given his body habitus but generally clear in both lung wolf Cardio: Rate: regular rate Rhythm: abnormal rhythm irregularly irregular GI: Auscultation: normal bowel sounds Skin: General skin exam: normal color Neuro: Other: Alert and oriented x3 Extrem: Other: Right lower extremity amputation, left lower extremity edema appears to be improving. [place] wrapped up to the knee Objective Data Vital Signs Vital Signs: Vital Signs - 24 hr 12/21/24 09:08 12/21/24 12:03 12/21/24 15:31 Temperature 36.6 C Pulse Rate 75 81 Respiratory Rate 20 18 Blood Pressure 108/45 L Pulse Oximetry 98 100 Oxygen Delivery CPAP Oxygen Flow Rate 4 12/21/24 16:03 12/21/24 20:00 12/21/24 21:46 Temperature 36.8 C Pulse Rate 73 75 79 Respiratory Rate 20 Blood Pressure 123/50 L Pulse Oximetry 98 Oxygen Delivery Oxygen Flow Rate 12/21/24 23:12 12/22/24 00:00 12/22/24 03:15 Temperature Pulse Rate 79 Respiratory Rate Blood Pressure Pulse Oximetry Oxygen Delivery CPAP CPAP Oxygen Flow Rate 12/22/24 04:00 12/22/24 06:23 Temperature 36.4 C Pulse Rate 75 71 Respiratory Rate 20 Blood Pressure 115/50 L Pulse Oximetry 98 Oxygen Delivery Oxygen Flow Rate Intake/Output Intake/Output: Intake & Output 12/19/24 12/20/24 12/21/24 12/22/24 23:59 23:59 23:59 23:59 Intake Total 2379 890 9248 300 Output Total 3325 4500 5600 1999 [facility] -1545 [phone] -1700 Meds/Results Medications: Active Medications Generic Name Dose Route Start Last Admin Trade Name Freq PRN Reason Stop Dose Admin Acetaminophen 650 mg 12/20/24 13:36 12/22/24 07:06 Acetaminophen 325 Mg Tablet PO 650 mg Q4H PRN Administration fever or pain 1-3 Allopurinol 100 mg 12/18/24 09:00 12/21/24 09:08 Allopurinol 100 Mg Tablet PO 100 mg DAILY ANGELA Administration Apixaban 5 mg 12/17/24 21:00 12/21/24 21:22 Apixaban 5 Mg Tablet PO 5 mg Q12HR ANGELA Administration Bumetanide 2 mg 12/19/24 13:00 12/21/24 17:38 Bumetanide Inj 1 Mg/4 Ml Vial IV PUSH 2 mg TID ANGELA Administration Calcitriol 0.25 mcg 12/18/24 17:45 12/21/24 17:38 Calcitriol 0.25 Mcg Capsule PO 0.25 mcg MoWeFr ANGELA Administration Docusate Sodium 100 mg 12/17/24 17:44 Docusate Sodium 100 Mg Capsule PO Q12H PRN Constipation Empagliflozin 10 mg 12/22/24 09:00 Empagliflozin 10 Mg Tablet PO DAILY ANGELA Famotidine 20 mg 12/17/24 21:00 12/21/24 21:22 Famotidine 20 Mg Tablet PO 20 mg Q12HR ANGELA Administration Fluticasone Propionate 1 spray 12/17/24 17:44 Fluticasone Propionate 0.05% Na Spr 16 Gm Btl (*Bkc) NASAL DAILY PRN Congestion Gabapentin 300 mg 12/18/24 09:00 12/21/24 17:38 Gabapentin 300 Mg Capsule PO 300 mg TID ANGELA Administration Hyoscyamine 0.125 mg 12/18/24 03:43 12/21/24 21:34 Hyoscyamine Sulfate 0.125 Mg Tablet PO 0.125 mg Q4H PRN Administration bladder spasms Levothyroxine Sodium 200 mcg 12/18/24 06:30 12/22/24 07:06 Levothyroxine Sodium 100 Mcg Tablet PO 200 mcg DAILY@0630 ANGELA Administration Loratadine 10 mg 12/18/24 09:00 12/21/24 09:08 Loratadine 10 Mg Tablet PO 10 mg DAILY ANGELA Administration Metolazone 2.5 mg 12/20/24 14:10 12/21/24 09:08 Metolazone 2.5 Mg Tablet PO 2.5 mg QAM ANGELA Administration Minoxidil 2.5 mg 12/18/24 09:00 12/21/24 09:07 Minoxidil 2.5 Mg Tablet PO 2.5 mg DAILY ANGELA Administration Oxybutynin Chloride 5 mg 12/21/24 11:31 Oxybutynin Chloride 5 Mg Tablet PO TID PRN spasm Polyethylene Glycol 17 gm 12/17/24 17:44 12/20/24 07:57 Polyethylene Glycol 3350 17 Gm Powd.Pack PO 17 gm DAILY PRN Administration Constipation Potassium Chloride 10 meq 12/18/24 09:00 12/21/24 09:07 Potassium Chloride 10 Meq Er Tablet PO 10 meq DAILY ANGELA Administration Spironolactone 25 mg 12/18/24 09:00 12/21/24 09:08 Spironolactone 25 Mg Tablet PO 25 mg DAILY ANGELA Administration Tamsulosin HCl 0.4 mg 12/18/24 09:00 12/21/24 09:07 Tamsulosin Hcl 0.4 Mg Capsule PO 0.4 mg QAM ANGELA Administration Radiology Results: ITS Impressions Venous Doppler Study 12/17/24 13:43 IMPRESSION: 1. No left leg DVT. Chest X-Ray 12/17/24 14:14 IMPRESSION: 1. Right pleural effusion with associated basilar atelectasis and/or airspace disease. Abdomen Ultrasound 12/21/24 17:12 Impression: 1. Limited study. 2. Mild hepatic steatosis versus hepatocellular disease. Mild splenomegaly. MRI suggested to further evaluate. Labs Labs: Laboratory Results - last 24 hr 12/22/24 12/22/24 04:34 04:34 WBC 6.8 RBC 3.37 L Hgb 8.6 L Hct 30.8 L MCV 91.4 MCH 25.5 L MCHC 27.9 L RDW 15.3 H Plt Count 288 MPV 10.8 H Immature Gran % (Auto) 0.4 Neut % (Auto) 76.5 H Lymph % (Auto) 6.7 L [place] % (Auto) 9.2 H Eos % (Auto) 6.3 H Baso % (Auto) 0.9 Lymph # (Auto) 0.46 L [place] # (Auto) 0.6 Eos # (Auto) 0.4 H Baso # (Auto) 0.1 Abs Immat Gran (auto) 0.03 Absolute Neuts (auto) 5.2 Absolute Nucleated RBC 0.000 Band Neutrophils % Not Reportable Nucleated RBC % 0.0 Platelet Estimate Adequate Hypochromasia 1+ Anisocytosis 1+ Tear Drop Cells Occasional Ovalocytes 1+ Schistocytes None seen Sodium 132 L Potassium 3.4 3.4 Chloride 92 L Carbon Dioxide 39 H Anion Gap 1 L BUN 57 H Creatinine 1.67 H Estim Creat Clear Calc 54 Estimated GFR 40 L Glucose 87 Calcium 8.3 L Magnesium 2.4 H Total Bilirubin 0.2 AST 19 ALT 7 Alkaline Phosphatase 46 Total Protein 4.6 L Albumin 2.5 L Quality VTE Prophylaxis VTE prophylaxis: pharmacologic ordered
[2024-12-22] MEDS: SPIRONOLACTONE 25 MG TABLET PO (09:14)
[2024-12-22] MEDS: TAMSULOSIN HCL 0.4 MG CAPSULE PO (09:15)
[2024-12-22] MEDS: POTASSIUM CHLORIDE 10 MEQ ER TABLET PO (09:15)
[2024-12-22] MEDS: FAMOTIDINE 20 MG TABLET PO ×2 (09:16→21:51)
[2024-12-22] MEDS: GABAPENTIN 300 MG CAPSULE PO ×3 (09:17→18:01)
[2024-12-22] MEDS: EMPAGLIFLOZIN 10 MG TABLET PO (09:17)
[2024-12-22] MEDS: LORATADINE 10 MG TABLET PO (09:17)
[2024-12-22] MEDS: APIXABAN 5 MG TABLET PO ×2 (09:17→21:51)
[2024-12-22] MEDS: BUMETANIDE INJ 1 MG/4 ML VIAL 2 MG IV PUSH ×3 (09:18→18:02)
[2024-12-22] MEDS: HYOSCYAMINE SULFATE 0.125 MG TABLET PO (09:20)
--- NOTE | 2024-12-22 10:52 | PCPTNOTE ---
Attempted PT evaluation. Pt refused stating he feels like a swelled up tick on a dog. Attempted to explain the benefits of participating with therapy, pt continued to refused stating he would try tomorrow. Nursing aware. Will follow.
--- NOTE | 2024-12-22 11:30 | PCOTNOTE ---
Pt declines OT evaluation today stating that he isn't feeling well enough to work with therapy today but would like therapy to come back tomorrow. Pt educated on benefits of getting out of bed and still declines. Will continue to follow.
--- NOTE | 2024-12-22 11:57 | PM.IMPN ---
Progress Note: A&P Assessment and Plan (1) CHF (congestive heart failure): Qualifiers: Heart failure chronicity: chronic Heart failure type: diastolic Qualified Code(s): I50.32 - Chronic diastolic (congestive) heart failure Code(s): I50.9 - Heart failure, unspecified Status: Chronic (2) Hypokalemia: Code(s): E87.6 - Hypokalemia Status: Acute (3) Atrial fibrillation: Qualifiers: Atrial fibrillation type: longstanding persistent Qualified Code(s): I48.11 - Longstanding persistent atrial fibrillation Code(s): I48.91 - Unspecified atrial fibrillation Status: Chronic (4) Stage 3b chronic kidney disease: Code(s): N18.32 - Chronic kidney disease, stage 3b Status: Chronic (5) Hx of right BKA: Onset Date: ~07/2024 Code(s): Z89.511 - Acquired absence of right leg below knee Status: Chronic (6) Hypothyroidism: Qualifiers: Hypothyroidism type: acquired Qualified Code(s): E03.9 - Hypothyroidism, unspecified Code(s): E03.9 - Hypothyroidism, unspecified Status: Chronic (7) Essential (primary) hypertension: Code(s): I10 - Essential (primary) hypertension Status: Chronic (8) AMELIA (obstructive sleep apnea): Code(s): G47.33 - Obstructive sleep apnea (adult) (pediatric) Status: Chronic Plan 74 y/o M with PMH of right BKA, lymphedema, iron deficiency anemia, peripheral vascular disease, gout, atrial fibrillation, AMELIA, CHF, hypothyroidism, HLD, and HTN presents here with shortness of breath and worsening edema. The patient presents here from home via EMS on 12/17 for further evaluation of worsening shortness of breath, generalized weakness, and worsening edema. He reports onset of symptoms approximately 2 weeks ago. He reports edema has affected his left lower extremity and scrotum, estimates his scrotum has increased in size by 3-4x. He has a history of congestive heart failure and follows with [facility]. He is currently on Bumex 1 mg t.i.d. and spironolactone. He reports he has run out of his spironolactone approximately 1 week ago and has only been taking his diuretic in the morning and around noon, has not taken his evening dose consistently due to nocturia. He has additionally been adding his old prescription for Lasix 40 mg daily for the past 2 weeks or so to try to increase his diuresis. He denies associated chest pain, cough, chills, fever, nausea, vomiting, diarrhea. Initial VS at presentation: 98? F, HR 80, RR 20, 115/52, and 96% on RA. ED workup showed: No leukocytosis, hemoglobin 9.7 (10.2 on 09/30/2024), INR 1.3, sodium 132, potassium 2.8, creatinine 2.12 and GFR 31 (2.14 and GFR 30 on 09/30/2024), glucose 112, calcium 7.7/albumin 2.8, BNP 66021. Venous LLE US showed no DVT. CXR showed right pleural effusion with associated basilar atelectasis and/or airspace disease. Acute on chronic congestive heart failure systolic diastolic. BNP 1160. Echo 04/2022 with LV function well reserved RV enlargement at least mild systolic dysfunction. Poorly visualized cardiac valves/no obvious valvular dysfunction. On Bumex 1 mg t.i.d. not taking as prescribed. Continue Bumex 1 mg IV t.i.d. patient also reported out of his spironolactone for past week which will be resumed along with metolazone. Continue to monitor renal function. Increase his Bumex to 2 mg t.i.d.. Metolazone daily Hypokalemia replace and monitor Atrial fibrillation on Eliquis and metoprolol rate control with intermittent bradycardia. Metoprolol held cardiology consult. Anticipate resumption of metoprolol succinate perhaps lower dose during this hospital stay. Continue to monitor on te Stage IIIB chronic kidney disease. Baseline creatinine varies between 1.7-2.8. Currently at 2.1. Continue to monitor Status post right BKA in July 2024 secondary to chronic infection. Wound care to continue Bladder spasms with Miller in situ. On Levsin p.r.n. also added oxybutynin p.r.n. Hypothyroidism Synthroid Hypertension home medication AMELIA on CPAP Diet: Renal GI Prophylaxis: N/a DVT Prophylaxis: Eliquis IV fluids: None Lines/Tubes: Peripheral IV Code Status: Full code Subjective Date/time seen: 12/22/24 11:57 Interval history: no overnight events. No new complaints. Remains negative balance Review of Systems Review of Systems: All systems reviewed & are unremarkable except as noted in HPI and below Exam Narrative: APPEARANCE: Well appearing, no pain, no distress, well-nourished. HEAD: normocephalic, atraumatic. EYES: PERRLA/EOMI, conjunctivae clear. NOSE: Normal no drainage THROAT: Pharynx clear, no exudate. NECK: Supple. No adenopathy, no masses. RESPIRATORY: Airway patent, respirations nonlabored. Clear to auscultation bilaterally, no rales, rhonchi, wheezing. CARDIOVASCULAR: Regular rate and rhythm without murmurs rubs or gallops. ABDOMINAL: Soft, nontender, nondistended, normal bowel sounds MUSCULOSKELETAL: Well-appearing stop on right leg, edema of left lower extremity NEURO: Alert. Cranial nerves II through XII intact. Grossly intact SKIN: Warm, dry. Normal Color Objective Data Vital Signs Vital Signs: Vital Signs - 24 hr 12/21/24 12:03 12/21/24 15:31 12/21/24 16:03 Temperature 98 F Pulse Rate 75 81 73 Respiratory Rate 18 Blood Pressure 108/45 L Pulse Oximetry 100 Oxygen Delivery 12/21/24 20:00 12/21/24 21:46 12/21/24 23:12 Temperature 98.2 F Pulse Rate 75 79 Respiratory Rate 20 Blood Pressure 123/50 L Pulse Oximetry 98 Oxygen Delivery CPAP 12/22/24 00:00 12/22/24 03:15 12/22/24 04:00 Temperature Pulse Rate 79 75 Respiratory Rate Blood Pressure Pulse Oximetry Oxygen Delivery CPAP 12/22/24 06:23 12/22/24 09:15 Temperature 97.6 F Pulse Rate 71 Respiratory Rate 20 Blood Pressure 115/50 L Pulse Oximetry 98 Oxygen Delivery Room Air Intake/Output Intake/Output: Intake & Output 12/19/24 12/20/24 12/21/24 12/22/24 23:59 23:59 23:59 23:59 Intake Total 3226 808 9847 660 Output Total 3325 4500 5600 1999 Balance -1545 -3540 -4560 -1340 Meds/Results Medications: Active Medications Generic Name Dose Route Start Last Admin Trade Name Freq PRN Reason Stop Dose Admin Acetaminophen 650 mg 12/20/24 13:36 12/22/24 07:06 Acetaminophen 325 Mg Tablet PO 650 mg Q4H PRN Administration fever or pain 1-3 Allopurinol 100 mg 12/18/24 09:00 12/22/24 09:16 Allopurinol 100 Mg Tablet PO 100 mg DAILY ANGELA Administration Apixaban 5 mg 12/17/24 21:00 12/22/24 09:17 Apixaban 5 Mg Tablet PO 5 mg Q12HR ANGELA Administration Bumetanide 2 mg 12/19/24 13:00 12/22/24 09:18 Bumetanide Inj 1 Mg/4 Ml Vial IV PUSH 2 mg TID ANGELA Administration Calcitriol 0.25 mcg 12/18/24 17:45 12/21/24 17:38 Calcitriol 0.25 Mcg Capsule PO 0.25 mcg MoWeFr ANGELA Administration Docusate Sodium 100 mg 12/17/24 17:44 Docusate Sodium 100 Mg Capsule PO Q12H PRN Constipation Empagliflozin 10 mg 12/22/24 09:00 12/22/24 09:17 Empagliflozin 10 Mg Tablet PO 10 mg DAILY ANGELA Administration Famotidine 20 mg 12/17/24 21:00 12/22/24 09:16 Famotidine 20 Mg Tablet PO 20 mg Q12HR ANGELA Administration Fluticasone Propionate 1 spray 12/17/24 17:44 Fluticasone Propionate 0.05% Na Spr 16 Gm Btl (*Bkc) NASAL DAILY PRN Congestion Gabapentin 300 mg 12/18/24 09:00 12/22/24 09:17 Gabapentin 300 Mg Capsule PO 300 mg TID ANGELA Administration Hyoscyamine 0.125 mg 12/18/24 03:43 12/22/24 09:20 Hyoscyamine Sulfate 0.125 Mg Tablet PO 0.125 mg Q4H PRN Administration bladder spasms Levothyroxine Sodium 200 mcg 12/18/24 06:30 12/22/24 07:06 Levothyroxine Sodium 100 Mcg Tablet PO 200 mcg DAILY@0630 ANGELA Administration Loratadine 10 mg 12/18/24 09:00 12/22/24 09:17 Loratadine 10 Mg Tablet PO 10 mg DAILY ANGELA Administration Metolazone 2.5 mg 12/20/24 14:10 12/22/24 09:29 Metolazone 2.5 Mg Tablet PO Not Given QAM [facility] Minoxidil 2.5 mg 12/18/24 09:00 12/22/24 09:17 Minoxidil 2.5 Mg Tablet PO 2.5 mg DAILY ANGELA Administration Oxybutynin Chloride 5 mg 12/21/24 11:31 Oxybutynin Chloride 5 Mg Tablet PO TID PRN spasm Polyethylene Glycol 17 gm 12/17/24 17:44 12/20/24 07:57 Polyethylene Glycol 3350 17 Gm Powd.Pack PO 17 gm DAILY PRN Administration Constipation Potassium Chloride 10 meq 12/18/24 09:00 12/22/24 09:15 Potassium Chloride 10 Meq Er Tablet PO 10 meq DAILY ANGELA Administration Spironolactone 25 mg 12/18/24 09:00 12/22/24 09:14 Spironolactone 25 Mg Tablet PO 25 mg DAILY ANGELA Administration Tamsulosin HCl 0.4 mg 12/18/24 09:00 12/22/24 09:15 Tamsulosin Hcl 0.4 Mg Capsule PO 0.4 mg QAM ANGELA Administration Radiology Results: ITS Impressions Venous Doppler Study 12/17/24 13:43 IMPRESSION: 1. No left leg DVT. Chest X-Ray 12/17/24 14:14 IMPRESSION: 1. Right pleural effusion with associated basilar atelectasis and/or airspace disease. Abdomen Ultrasound 12/21/24 17:12 Impression: 1. Limited study. 2. Mild hepatic steatosis versus hepatocellular disease. Mild splenomegaly. MRI suggested to further evaluate. Labs Labs: Laboratory Results - last 24 hr 12/22/24 12/22/24 04:34 04:34 WBC 6.8 RBC 3.37 L Hgb 8.6 L Hct 30.8 L MCV 91.4 MCH 25.5 L MCHC 27.9 L RDW 15.3 H Plt Count 288 MPV 10.8 H Immature Gran % (Auto) 0.4 Neut % (Auto) 76.5 H Lymph % (Auto) 6.7 L [place] % (Auto) 9.2 H Eos % (Auto) 6.3 H Baso % (Auto) 0.9 Lymph # (Auto) 0.46 L [place] # (Auto) 0.6 Eos # (Auto) 0.4 H Baso # (Auto) 0.1 Abs Immat Gran (auto) 0.03 Absolute Neuts (auto) 5.2 Absolute Nucleated RBC 0.000 Band Neutrophils % Not Reportable Nucleated RBC % 0.0 Platelet Estimate Adequate Hypochromasia 1+ Anisocytosis 1+ Tear Drop Cells Occasional Ovalocytes 1+ Schistocytes None seen Sodium 132 L Potassium 3.4 3.4 Chloride 92 L Carbon Dioxide 39 H Anion Gap 1 L BUN 57 H Creatinine 1.67 H Estim Creat Clear Calc 54 Estimated GFR 40 L Glucose 87 Calcium 8.3 L Magnesium 2.4 H Total Bilirubin 0.2 AST 19 ALT 7 Alkaline Phosphatase 46 Total Protein 4.6 L Albumin 2.5 L
[2024-12-23] VITALS (11 sets, daily range): BP systolic 101–119; BP diastolic 50–58; PULSE 60–85; RESP 14–20; TEMP 36.4–36.7; O2SAT 92–100
[2024-12-23 05:03] LABS: Hematocrit 34.5 % (42.0-52.0); Hemoglobin 9.5 g/dL (14.0-18.0); Immature Granulocyte Percent A 0.5 % (0-0.5); Lymphocytes Absolute Auto 0.44 K/mm3 (0.9-3.2); Mean Corpuscular HGB Conc 27.5 g/dl (32-36); Mean Corpuscular Hemoglobin 25.2 pg (26-34); Mean Corpuscular Volume 91.5 fl (80-100); Nucleated Red Blood Cells Absolute Auto 0.000 K/mm3 (0.0-0.012); Nucleated Red Blood Cells Perc 0.0 % (0.0-0.2); Platelet Count Result 273 k/mm3 (150-375); Red Blood Count 3.77 M/mm3 (4.6-6.20); White Blood Count 6.3 K/mm3 (4.5-10.0)
[2024-12-23 05:29] LABS: Alanine Aminotransferase 7 U/L (6-50); Albumin Level 2.7 g/dL (3.5-5.1); Alkaline Phosphatase 50 U/L (38-126); Anion Gap 3 mmol/L (4-12); Aspartate Amino Transferase 20 U/L (17-59); Bilirubin,Total 0.2 mg/dL (0.2-1.3); Blood Urea Nitrogen 54 mg/dL (9-20); Calcium 8.3 mg/dL (8.4-10.2); Carbon Dioxide 38 mmol/L (22-30); Chloride 90 mmol/L (98-107); Estimated CRCL calculation 54 ml/min; Estimated Glomerular Filt Rate 40; Glucose 91 mg/dL (65-110); Magnesium 2.4 mg/dL (1.6-2.3); Potassium 3.3 mmol/L (3.4-5.0); Sodium 131 mmol/L (137-145); Total Protein 4.9 g/dL (6.3-8.2)
[2024-12-23 05:40] LABS: Hypochromasia 1+
[2024-12-23 05:41] LABS: Ovalocytes 1+; Schistocytes None Seen
[2024-12-23] MEDS: LEVOTHYROXINE SODIUM 100 MCG TABLET 200 MCG PO (06:22)
[2024-12-23] MEDS: ACETAMINOPHEN 325 MG TABLET 650 MG PO ×3 (06:22→20:59)
[2024-12-23] MEDS: APIXABAN 5 MG TABLET PO ×2 (08:37→20:59)
[2024-12-23] MEDS: FAMOTIDINE 20 MG TABLET PO ×2 (08:37→20:59)
[2024-12-23] MEDS: EMPAGLIFLOZIN 10 MG TABLET PO (08:37)
[2024-12-23] MEDS: POTASSIUM CHLORIDE 10 MEQ ER TABLET PO (08:38)
[2024-12-23] MEDS: TAMSULOSIN HCL 0.4 MG CAPSULE PO (08:38)
[2024-12-23] MEDS: LORATADINE 10 MG TABLET PO (08:38)
[2024-12-23] MEDS: GABAPENTIN 300 MG CAPSULE PO ×3 (08:38→17:01)
[2024-12-23] MEDS: SPIRONOLACTONE 25 MG TABLET PO (08:38)
[2024-12-23] MEDS: POTASSIUM CHLORIDE 20 MEQ ER TABLET 40 MEQ PO (08:39)
[2024-12-23] MEDS: HYOSCYAMINE SULFATE 0.125 MG TABLET PO ×3 (08:48→20:59)
[2024-12-23] MEDS: BUMETANIDE INJ 1 MG/4 ML VIAL 2 MG IV PUSH ×3 (08:49→17:01)
--- NOTE | 2024-12-23 08:55 | PM.PNCARD ---
Progress Note: A&P Assessment and Plan (1) Venous stasis dermatitis of both lower extremities: Code(s): I87.2 - Venous insufficiency (chronic) (peripheral) Status: Acute (2) Atrial fibrillation: Qualifiers: Atrial fibrillation type: longstanding persistent Qualified Code(s): I48.11 - Longstanding persistent atrial fibrillation Code(s): I48.91 - Unspecified atrial fibrillation Status: Chronic (3) Acute on chronic diastolic heart failure: Code(s): I50.33 - Acute on chronic diastolic (congestive) heart failure Status: Acute (4) Bradycardia: Code(s): R00.1 - Bradycardia, unspecified Status: Acute Plan Diagnosis: 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 Avoid any AV orquidea blocking agents. Telemetry now shows AFib with rates in the 70s By exam he continues to be fluid overload but is improving. Good UO yesterday with reported 5900ml out. Continue IV diuresis with IV Bumex, but will change from TID to BID, re-evaluate in am and may transition to oral. Check daily weight, ins and outs, renal function Continue metolazone Continue spironolactone 25 mg daily Added empagliflozin 10 mg daily Check and replace electrolytes to keep potassium greater than 4 and magnesium greater than 2 Continue apixaban for anticoagulation for atrial fibrillation Subjective Date/time seen: 12/23/24 08:55 Interval history: Reason for encounter: Acute on chronic diastolic and right heart failure, bradycardia and pauses Relevant history: 74-year-old male with history of diastolic dysfunction, chronic atrial fibrillation, chronic right ventricular dysfunction with recurrent heart failure hospitalizations, h/o right [id number] amputation for infection was admitted with symptoms of shortness of breath and lower extremity swelling. Cardiology was consulted for management of acute on chronic diastolic and right ventricular failure and bradycardia, pauses noted on telemetry during this admission. He has a right bundle branch block and leftward axis pattern with a wide QRS on EKG which is chronic. Interval history: Patient states he is still short of breath and his legs are swollen. No chest pain. Telemetry shows atrial fibrillation with rates in the 70s. Date of service 12/22/2024: Reports some improvement in his swelling. Still has shortness of breath and wears his CPAP throughout the day. No chest pain. 12/23/24: Patient is sititng up in bed. Breathing feels better this am and he is not requiring CPAP at this time. No reports of any chest pain or pressure. No dizziness or palpitaitons. Feels LE edema is improved. Review of Systems Review of Systems: All systems reviewed & are unremarkable except as noted in HPI and below Exam Narrative: General: Alert oriented x3, no acute distress Neck: Supple, JVD + Chest: Bilaterally clear to auscultation, no rales or rhonchi Cardiac: irreg irreg Extremities: Bilateral lower extremity edema 1+. Rt BKA Neurologic: Alert and oriented x3, no focal neurological deficits Objective Data Vital Signs Vital Signs: Vital Signs - 24 hr 12/22/24 09:15 12/22/24 12:00 12/22/24 15:02 Temperature 36.6 C Pulse Rate 74 75 Respiratory Rate 18 Blood Pressure 114/54 L Pulse Oximetry 99 Oxygen Delivery Room Air Oxygen Flow Rate 12/22/24 16:00 12/22/24 20:00 12/22/24 20:00 Temperature Pulse Rate 73 77 Respiratory Rate Blood Pressure Pulse Oximetry 99 Oxygen Delivery CPAP Oxygen Flow Rate 4 12/22/24 21:17 12/22/24 22:18 12/23/24 00:00 Temperature Pulse Rate 86 85 74 Respiratory Rate Blood Pressure Pulse Oximetry 91 94 Oxygen Delivery CPAP CPAP Oxygen Flow Rate 12/23/24 00:01 12/23/24 04:00 12/23/24 04:52 Temperature 36.6 C Pulse Rate 75 64 84 Respiratory Rate 14 Blood Pressure 116/50 L Pulse Oximetry 99 94 Oxygen Delivery CPAP Oxygen Flow Rate 12/23/24 06:00 Temperature 36.7 C Pulse Rate 60 Respiratory Rate 14 Blood Pressure 115/55 L Pulse Oximetry 100 Oxygen Delivery Oxygen Flow Rate Intake/Output Intake/Output: Intake & Output 12/20/24 12/21/24 12/22/24 12/23/24 23:59 23:59 23:59 23:59 Intake Total 960 1040 1380 300 Output Total 4500 5600 5150 2800 [facility] -[phone] -[phone] -[phone] -[phone] Meds/Results Medications: Active Medications Generic Name Dose Route Start Last Admin Trade Name Freq PRN Reason Stop Dose Admin Acetaminophen 650 mg 12/20/24 13:36 12/23/24 06:22 Acetaminophen 325 Mg Tablet PO 650 mg Q4H PRN Administration fever or pain 1-3 Allopurinol 100 mg 12/18/24 09:00 12/23/24 08:38 Allopurinol 100 Mg Tablet PO 100 mg DAILY ANGELA Administration Apixaban 5 mg 12/17/24 21:00 12/23/24 08:37 Apixaban 5 Mg Tablet PO 5 mg Q12HR ANGELA Administration Calcitriol 0.25 mcg 12/18/24 17:45 12/21/24 17:38 Calcitriol 0.25 Mcg Capsule PO 0.25 mcg MoWeFr ANGELA Administration Docusate Sodium 100 mg 12/17/24 17:44 Docusate Sodium 100 Mg Capsule PO Q12H PRN Constipation Empagliflozin 10 mg 12/22/24 09:00 12/23/24 08:37 Empagliflozin 10 Mg Tablet PO 10 mg DAILY ANGELA Administration Famotidine 20 mg 12/17/24 21:00 12/23/24 08:37 Famotidine 20 Mg Tablet PO 20 mg Q12HR ANGELA Administration Fluticasone Propionate 1 spray 12/17/24 17:44 Fluticasone Propionate 0.05% Na Spr 16 Gm Btl (*Bkc) NASAL DAILY PRN Congestion Gabapentin 300 mg 12/18/24 09:00 12/23/24 08:38 Gabapentin 300 Mg Capsule PO 300 mg TID ANGELA Administration Hyoscyamine 0.125 mg 12/18/24 03:43 12/23/24 08:48 Hyoscyamine Sulfate 0.125 Mg Tablet PO 0.125 mg Q4H PRN Administration bladder spasms Levothyroxine Sodium 200 mcg 12/18/24 06:30 12/23/24 06:22 Levothyroxine Sodium 100 Mcg Tablet PO 200 mcg DAILY@0630 ANGELA Administration Loratadine 10 mg 12/18/24 09:00 12/23/24 08:38 Loratadine 10 Mg Tablet PO 10 mg DAILY ANGELA Administration Metolazone 2.5 mg 12/20/24 14:10 12/23/24 08:37 Metolazone 2.5 Mg Tablet PO 2.5 mg QAM ANGELA Administration Minoxidil 2.5 mg 12/18/24 09:00 12/23/24 08:38 Minoxidil 2.5 Mg Tablet PO 2.5 mg DAILY ANGELA Administration Oxybutynin Chloride 5 mg 12/21/24 11:31 Oxybutynin Chloride 5 Mg Tablet PO TID PRN spasm Polyethylene Glycol 17 gm 12/17/24 17:44 12/23/24 08:36 Polyethylene Glycol 3350 17 Gm Powd.Pack PO 17 gm DAILY PRN Administration Constipation Potassium Chloride 10 meq 12/18/24 09:00 12/23/24 08:38 Potassium Chloride 10 Meq Er Tablet PO 10 meq DAILY ANGELA Administration Spironolactone 25 mg 12/18/24 09:00 12/23/24 08:38 Spironolactone 25 Mg Tablet PO 25 mg DAILY ANGELA Administration Tamsulosin HCl 0.4 mg 12/18/24 09:00 12/23/24 08:38 Tamsulosin Hcl 0.4 Mg Capsule PO 0.4 mg QAM ANGELA Administration Radiology Results: ITS Impressions Venous Doppler Study 12/17/24 13:43 IMPRESSION: 1. No left leg DVT. Chest X-Ray 12/17/24 14:14 IMPRESSION: 1. Right pleural effusion with associated basilar atelectasis and/or airspace disease. Abdomen Ultrasound 12/21/24 17:12 Impression: 1. Limited study. 2. Mild hepatic steatosis versus hepatocellular disease. Mild splenomegaly. MRI suggested to further evaluate. Labs Labs: Laboratory Results - last 24 hr 12/23/24 04:42 WBC 6.3 RBC 3.77 L Hgb 9.5 L Hct 34.5 L MCV 91.5 MCH 25.2 L MCHC 27.5 L RDW 15.1 H Plt Count 273 MPV 10.6 H Immature Gran % (Auto) 0.5 Neut % (Auto) 74.2 H Lymph % (Auto) 7.0 L [place] % (Auto) 10.4 H Eos % (Auto) 6.9 H Baso % (Auto) 1.0 Lymph # (Auto) 0.44 L [place] # (Auto) 0.7 H Eos # (Auto) 0.4 H Baso # (Auto) 0.1 Abs Immat Gran (auto) 0.03 Absolute Neuts (auto) 4.6 Absolute Nucleated RBC 0.000 Band Neutrophils % Not Reportable Nucleated RBC % 0.0 Platelet Estimate Adequate Hypochromasia 1+ Ovalocytes 1+ Schistocytes None seen Sodium 131 L Potassium 3.3 L Chloride 90 L Carbon Dioxide 38 H Anion Gap 3 L BUN 54 H Creatinine 1.67 H Estim Creat Clear Calc 54 Estimated GFR 40 L Glucose 91 Calcium 8.3 L Magnesium 2.4 H Total Bilirubin 0.2 AST 20 ALT 7 Alkaline Phosphatase 50 Total Protein 4.9 L Albumin 2.7 L
--- NOTE | 2024-12-23 11:40 | PM.IMPN ---
Progress Note: A&P Assessment and Plan (1) CHF (congestive heart failure): Qualifiers: Heart failure chronicity: chronic Heart failure type: diastolic Qualified Code(s): I50.32 - Chronic diastolic (congestive) heart failure Code(s): I50.9 - Heart failure, unspecified Status: Chronic (2) Hypokalemia: Code(s): E87.6 - Hypokalemia Status: Acute (3) Atrial fibrillation: Qualifiers: Atrial fibrillation type: longstanding persistent Qualified Code(s): I48.11 - Longstanding persistent atrial fibrillation Code(s): I48.91 - Unspecified atrial fibrillation Status: Chronic (4) Stage 3b chronic kidney disease: Code(s): N18.32 - Chronic kidney disease, stage 3b Status: Chronic (5) Hx of right BKA: Onset Date: ~07/2024 Code(s): Z89.511 - Acquired absence of right leg below knee Status: Chronic (6) Hypothyroidism: Qualifiers: Hypothyroidism type: acquired Qualified Code(s): E03.9 - Hypothyroidism, unspecified Code(s): E03.9 - Hypothyroidism, unspecified Status: Chronic (7) Essential (primary) hypertension: Code(s): I10 - Essential (primary) hypertension Status: Chronic (8) AMELIA (obstructive sleep apnea): Code(s): G47.33 - Obstructive sleep apnea (adult) (pediatric) Status: Chronic Plan Acute on chronic congestive heart failure systolic diastolic. BNP 1160. Echo 04/2022 with LV function well reserved RV enlargement at least mild systolic dysfunction. Poorly visualized cardiac valves/no obvious valvular dysfunction. On Bumex 1 mg t.i.d. not taking as prescribed and patient also reported out of his spironolactone for past week. Bumex IV started and metolazone and spironolactone resumed. Fluid balance -16L. Getting close to dry weight. Remains on Bumex to 2 mg t.i.d.. Elevate scrotum. Hypokalemia - replace and monitor Atrial fibrillation - on Eliquis and metoprolol. Having bradycardia so metoprolol stopped. Eliquis resumed here. Cardiology following. Monitor on tele. Stage IIIB chronic kidney disease - Baseline creatinine varies between 1.7-2.8. Currently at 1.7. Continue to monitor. 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 Wound care to continue. PT/OT Bladder spasms with Miller in situ. On Levsin p.r.n. also added oxybutynin p.r.n. Remove Miller tomorrow. Hypothyroidism - Synthroid Hypertension - BP stable. AMELIA on CPAP DVT Prophylaxis: Eliquis Code Status: Full code Subjective Date/time seen: 12/23/24 11:40 Interval history: 74 y/o M with PMH of right BKA, lymphedema, iron deficiency anemia, peripheral vascular disease, gout, atrial fibrillation, AMELIA, CHF, hypothyroidism, HLD, and HTN presents here with shortness of breath and worsening edema. Assuming care. Chart reviewed. He feels much better. No chest pain. Still with dyspnea on exertion. No nausea or vomiting. Was able to sit at the side of the bed today. Exam Narrative: AF 98.0 115/55 74 14 100% ra APPEARANCE: NARD RESPIRATORY: L>R basilar crackles. nml RR CARDIOVASCULAR: regular. Tele showing PVCs ABDOMINAL: Soft, nontender, nondistended, normal bowel sounds - Miller secured draining clear yellow urine. scrotum mildly edematous. MUSCULOSKELETAL: Rt BKA. Trace lower extremity edema. NEURO: Alert. Cranial nerves II through XII intact. Grossly intact SKIN: Warm, dry. Normal Color. shallow ulcer noted posterior right BKA stump. Dried LE scaly skin Objective Data Vital Signs Vital Signs: Vital Signs - 24 hr 12/22/24 12:00 12/22/24 15:02 12/22/24 16:00 Temperature 98 F Pulse Rate 74 75 73 Respiratory Rate 18 Blood Pressure 114/54 L Pulse Oximetry 99 Oxygen Delivery Oxygen Flow Rate 12/22/24 20:00 12/22/24 20:00 12/22/24 21:17 Temperature Pulse Rate 77 86 Respiratory Rate Blood Pressure Pulse Oximetry 99 91 Oxygen Delivery CPAP CPAP Oxygen Flow Rate 4 12/22/24 22:18 12/23/24 00:00 12/23/24 00:01 Temperature 97.8 F Pulse Rate 85 74 75 Respiratory Rate 14 Blood Pressure 116/50 L Pulse Oximetry 94 99 Oxygen Delivery CPAP Oxygen Flow Rate 12/23/24 04:00 12/23/24 04:52 12/23/24 06:00 Temperature 98.0 F Pulse Rate 64 84 60 Respiratory Rate 14 Blood Pressure 115/55 L Pulse Oximetry 94 100 Oxygen Delivery CPAP Oxygen Flow Rate 12/23/24 08:00 12/23/24 08:40 12/23/24 10:17 Temperature Pulse Rate 74 Respiratory Rate Blood Pressure Pulse Oximetry Oxygen Delivery Room Air Room Air Oxygen Flow Rate Intake/Output Intake/Output: Intake & Output 12/20/24 12/21/24 12/22/24 12/23/24 23:59 23:59 23:59 23:59 Intake Total 960 1040 1380 540 Output Total 4500 5600 5150 2800 Balance -1330 -6895 -8760 -0150 Meds/Results Medications: Active Medications Generic Name Dose Route Start Last Admin Trade Name Freq PRN Reason Stop Dose Admin Acetaminophen 650 mg 12/20/24 13:36 12/23/24 06:22 Acetaminophen 325 Mg Tablet PO 650 mg Q4H PRN Administration fever or pain 1-3 Allopurinol 100 mg 12/18/24 09:00 12/23/24 08:38 Allopurinol 100 Mg Tablet PO 100 mg DAILY ANGELA Administration Apixaban 5 mg 12/17/24 21:00 12/23/24 08:37 Apixaban 5 Mg Tablet PO 5 mg Q12HR ANGELA Administration Bumetanide 2 mg 12/23/24 13:00 Bumetanide Inj 1 Mg/4 Ml Vial IV PUSH TID ANGELA Calcitriol 0.25 mcg 12/18/24 17:45 12/21/24 17:38 Calcitriol 0.25 Mcg Capsule PO 0.25 mcg MoWeFr ANGELA Administration Docusate Sodium 100 mg 12/17/24 17:44 Docusate Sodium 100 Mg Capsule PO Q12H PRN Constipation Empagliflozin 10 mg 12/22/24 09:00 12/23/24 08:37 Empagliflozin 10 Mg Tablet PO 10 mg DAILY ANGELA Administration Famotidine 20 mg 12/17/24 21:00 12/23/24 08:37 Famotidine 20 Mg Tablet PO 20 mg Q12HR ANGELA Administration Fluticasone Propionate 1 spray 12/17/24 17:44 Fluticasone Propionate 0.05% Na Spr 16 Gm Btl (*Bkc) NASAL DAILY PRN Congestion Gabapentin 300 mg 12/18/24 09:00 12/23/24 08:38 Gabapentin 300 Mg Capsule PO 300 mg TID ANGELA Administration Hyoscyamine 0.125 mg 12/18/24 03:43 12/23/24 08:48 Hyoscyamine Sulfate 0.125 Mg Tablet PO 0.125 mg Q4H PRN Administration bladder spasms Levothyroxine Sodium 200 mcg 12/18/24 06:30 12/23/24 06:22 Levothyroxine Sodium 100 Mcg Tablet PO 200 mcg DAILY@0630 ANGELA Administration Loratadine 10 mg 12/18/24 09:00 12/23/24 08:38 Loratadine 10 Mg Tablet PO 10 mg DAILY ANGELA Administration Metolazone 2.5 mg 12/20/24 14:10 12/23/24 08:37 Metolazone 2.5 Mg Tablet PO 2.5 mg QAM ANGELA Administration Minoxidil 2.5 mg 12/18/24 09:00 12/23/24 08:38 Minoxidil 2.5 Mg Tablet PO 2.5 mg DAILY ANGELA Administration Oxybutynin Chloride 5 mg 12/21/24 11:31 Oxybutynin Chloride 5 Mg Tablet PO TID PRN spasm Polyethylene Glycol 17 gm 12/17/24 17:44 12/23/24 08:36 Polyethylene Glycol 3350 17 Gm Powd.Pack PO 17 gm DAILY PRN Administration Constipation Potassium Chloride 10 meq 12/18/24 09:00 12/23/24 08:38 Potassium Chloride 10 Meq Er Tablet PO 10 meq DAILY ANGELA Administration Spironolactone 25 mg 12/18/24 09:00 12/23/24 08:38 Spironolactone 25 Mg Tablet PO 25 mg DAILY ANGELA Administration Tamsulosin HCl 0.4 mg 12/18/24 09:00 12/23/24 08:38 Tamsulosin Hcl 0.4 Mg Capsule PO 0.4 mg QAM ANGELA Administration Radiology Results: ITS Impressions Venous Doppler Study 12/17/24 13:43 IMPRESSION: 1. No left leg DVT. Chest X-Ray 12/17/24 14:14 IMPRESSION: 1. Right pleural effusion with associated basilar atelectasis and/or airspace disease. Abdomen Ultrasound 12/21/24 17:12 Impression: 1. Limited study. 2. Mild hepatic steatosis versus hepatocellular disease. Mild splenomegaly. MRI suggested to further evaluate. Labs Labs: Laboratory Results - last 24 hr 12/23/24 04:42 WBC 6.3 RBC 3.77 L Hgb 9.5 L Hct 34.5 L MCV 91.5 MCH 25.2 L MCHC 27.5 L RDW 15.1 H Plt Count 273 MPV 10.6 H Immature Gran % (Auto) 0.5 Neut % (Auto) 74.2 H Lymph % (Auto) 7.0 L [place] % (Auto) 10.4 H Eos % (Auto) 6.9 H Baso % (Auto) 1.0 Lymph # (Auto) 0.44 L [place] # (Auto) 0.7 H Eos # (Auto) 0.4 H Baso # (Auto) 0.1 Abs Immat Gran (auto) 0.03 Absolute Neuts (auto) 4.6 Absolute Nucleated RBC 0.000 Band Neutrophils % Not Reportable Nucleated RBC % 0.0 Platelet Estimate Adequate Hypochromasia 1+ Ovalocytes 1+ Schistocytes None seen Sodium 131 L Potassium 3.3 L Chloride 90 L Carbon Dioxide 38 H Anion Gap 3 L BUN 54 H Creatinine 1.67 H Estim Creat Clear Calc 54 Estimated GFR 40 L Glucose 91 Calcium 8.3 L Magnesium 2.4 H Total Bilirubin 0.2 AST 20 ALT 7 Alkaline Phosphatase 50 Total Protein 4.9 L Albumin 2.7 L
[2024-12-23] MEDS: EUCERIN CREAM 120 GM JAR 1 APPLIC TOPICAL (12:49)
[2024-12-23] MEDS: WATER FOR IRRIGATION, STERILE 1,000 ML BOTTLE 1000 ML (20:59)
[2024-12-24] VITALS (9 sets, daily range): BP systolic 108–118; BP diastolic 52–58; PULSE 72–84; RESP 18–20; TEMP 36.3–36.9; O2SAT 97–99
[2024-12-24] MEDS: ACETAMINOPHEN 325 MG TABLET 650 MG PO ×3 (03:22→20:56)
[2024-12-24] MEDS: HYOSCYAMINE SULFATE 0.125 MG TABLET PO ×4 (03:23→17:21)
[2024-12-24 05:59] LABS: Albumin Level 2.8 g/dL (3.5-5.1); Blood Urea Nitrogen 54 mg/dL (9-20); Calcium 8.6 mg/dL (8.4-10.2); Chloride 89 mmol/L (98-107); Estimated CRCL calculation 51 ml/min; Estimated Glomerular Filt Rate 39; Glucose 97 mg/dL (65-110); Magnesium 2.3 mg/dL (1.6-2.3); Potassium 3.7 mmol/L (3.4-5.0); Sodium 130 mmol/L (137-145)
[2024-12-24 06:00] LABS: Carbon Dioxide > 40 mmol/L (22-30)
[2024-12-24] MEDS: LEVOTHYROXINE SODIUM 100 MCG TABLET 200 MCG PO (06:27)
[2024-12-24] MEDS: GABAPENTIN 300 MG CAPSULE PO ×3 (08:20→17:21)
[2024-12-24] MEDS: FAMOTIDINE 20 MG TABLET PO ×2 (08:20→20:52)
[2024-12-24] MEDS: LORATADINE 10 MG TABLET PO (08:20)
[2024-12-24] MEDS: TAMSULOSIN HCL 0.4 MG CAPSULE PO (08:20)
[2024-12-24] MEDS: EMPAGLIFLOZIN 10 MG TABLET PO (08:20)
[2024-12-24] MEDS: APIXABAN 5 MG TABLET PO ×2 (08:20→20:52)
[2024-12-24] MEDS: SPIRONOLACTONE 25 MG TABLET PO (08:21)
[2024-12-24] MEDS: POTASSIUM CHLORIDE 10 MEQ ER TABLET PO (08:21)
[2024-12-24] MEDS: BUMETANIDE INJ 1 MG/4 ML VIAL 2 MG IV PUSH ×2 (08:22→17:21)
[2024-12-24] MEDS: EUCERIN CREAM 120 GM JAR 1 APPLIC TOPICAL (08:23)
--- NOTE | 2024-12-24 10:42 | PCNWS ---
Weekly nutritional screen. Patient is tolerating current diet with adequate intake. No weight loss reported. No nutritional needs at this time.
--- NOTE | 2024-12-24 11:26 | P.PNIM_ITS ---
Progress Note: A&P Assessment and Plan (1) CHF (congestive heart failure): Qualifiers: Heart failure chronicity: chronic Heart failure type: diastolic Qualified Code(s): I50.32 - Chronic diastolic (congestive) heart failure Code(s): I50.9 - Heart failure, unspecified Status: Chronic Assessment and Plan: Acute on chronic systolic diastolic CHF with probably a component of right sided failure BNP 1160. CXR showing right pleural effusion with associated basilar atelect asis and/or airspace disease. Echo EF 65-70%, abnormal diastolic function, RV severely enlarged with reduced function. Moderate bi-atrial enlargement. Mild pulm HTN (40mmHg) At home, patient on Bumex 1 mg t.i.d. but not taking as prescribed and patient also reported out of his spironolactone for past week. Bumex 2mg IV TID started. Metolazone and spironolactone resumed. Fluid balance - 22.8L. Labs noted -- Getting close to dry weight. Bumex decreased to to 2 mg IV BID today. Compliance with medications was stressed. (2) Hypokalemia: Code(s): E87.6 - Hypokalemia Status: Acute Assessment and Plan: Monitor potassium level and replace as needed. (3) Atrial fibrillation: Qualifiers: Atrial fibrillation type: longstanding persistent Qualified Code(s): I48.11 - Longstanding persistent atrial fibrillation Code(s): I48.91 - Unspecified atrial fibrillation Status: Chronic Assessment and Plan: Patient with paroxysmal atrial fibrillation. Patient was on metoprolol for rate control but held due to bradycardia. Patient remains on Eliquis. Monitor on telemetry. Cardiology following. (4) Stage 3b chronic kidney disease: Code(s): N18.32 - Chronic kidney disease, stage 3b Status: Chronic Assessment and Plan: Patient with Stage IIIB chronic kidney disease. Baseline creatinine varies between 1.7-2.8. Currently at 1.7 and stable. Continue to monitor. 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 Wound care following. PT/OT. Resume Jayesh wraps to left lower extremity to help with fluid status. (6) Hypothyroidism: Qualifiers: Hypothyroidism type: acquired Qualified Code(s): E03.9 - Hypothyroidism, unspecified Code(s): E03.9 - Hypothyroidism, unspecified Status: Chronic Assessment and Plan: Patient with Hypothyroidism. Continue Synthroid. Check TSH (7) Essential (primary) hypertension: Code(s): I10 - Essential (primary) hypertension Status: Chronic Assessment and Plan: Patient's blood pressure was reviewed on 12/24 Blood pressure remains well controlled. Will continue to monitor (8) AMELIA (obstructive sleep apnea): Code(s): G47.33 - Obstructive sleep apnea (adult) (pediatric) Status: Chronic Assessment and Plan: AMELIA on CPAP Plan Bladder spasms with Miller in situ. On Levsin p.r.n. also added oxybutynin p.r.n. Remove Miller tomorrow. DVT Prophylaxis: Padminiquis Code Status: Full code Subjective Date/time seen: 12/24/24 11:26 Interval history: 74yo male with right BKA, lymphedema, iron deficiency anemia, PVD, gout, atrial fibrillation, AMELIA, CHF, hypothyroidism, HLD, and HTN presents here with shortness of breath and worsening edema. Feeling better. Declines to have Miller catheter removed today and is requesting 1 more day. Denies any nausea or vomiting. No chest pain. Shortness of breath is better. Exam Narrative: AF 97.3 108/55 72 20 97% ra Gen - NARD Chest -decreased breath sounds in the bases otherwise clear CV - RRR S1/S2. Telemetry showing PVCs and normal sinus rhythm. Abd - Soft, NT/ND, Positive BS - Miller secured draining clear yellow urine. scrotum mildly edematous. Ext - Rt BKA. Trace-1+ left lower extremity edema. Neuro - Alert and oriented. Nonfocal exam. Psych - Nml mood and affect Skin - Warm and dry. shallow ulcer noted posterior right BKA stump. Dried LE scaly skin Objective Data Vital Signs Vital Signs: Vital Signs - 24 hr 12/23/24 12:00 12/23/24 16:00 12/23/24 16:00 Temperature 97.7 F Pulse Rate 74 72 80 Respiratory Rate 15 Blood Pressure 101/58 L Pulse Oximetry 97 Oxygen Delivery Oxygen Flow Rate 12/23/24 20:00 12/23/24 20:00 12/23/24 20:55 Temperature Pulse Rate 85 71 Respiratory Rate Blood Pressure Pulse Oximetry 92 92 Oxygen Delivery CPAP CPAP Oxygen Flow Rate 4 12/23/24 20:55 12/23/24 21:28 12/24/24 00:00 Temperature 97.6 F Pulse Rate 71 77 73 Respiratory Rate 20 Blood Pressure 119/55 L Pulse Oximetry 92 98 Oxygen Delivery Room Air Oxygen Flow Rate 12/24/24 02:15 12/24/24 04:00 12/24/24 05:54 Temperature 97.3 F L Pulse Rate 73 72 Respiratory Rate 20 Blood Pressure 108/55 L Pulse Oximetry 97 Oxygen Delivery CPAP Oxygen Flow Rate 12/24/24 08:20 Temperature Pulse Rate Respiratory Rate Blood Pressure Pulse Oximetry Oxygen Delivery Room Air Oxygen Flow Rate Intake/Output Intake/Output: Intake & Output 12/21/24 12/22/24 12/23/24 12/24/24 23:59 23:59 23:59 23:59 Intake Total 1040 1380 1491 730 Output Total 5600 5150 8300 650 [id number] -[id number] -6809 80 Meds/Results Medications: Active Medications Generic Name Dose Route Start Last Admin Trade Name Freq PRN Reason Stop Dose Admin Acetaminophen 650 mg 12/20/24 13:36 12/24/24 03:22 Acetaminophen 325 Mg Tablet PO 650 mg Q4H PRN Administration fever or pain 1-3 Allopurinol 100 mg 12/18/24 09:00 12/24/24 08:19 Allopurinol 100 Mg Tablet PO 100 mg DAILY ANGELA Administration Apixaban 5 mg 12/17/24 21:00 12/24/24 08:20 Apixaban 5 Mg Tablet PO 5 mg Q12HR ANGELA Administration Bumetanide 2 mg 12/23/24 13:00 12/24/24 08:22 Bumetanide Inj 1 Mg/4 Ml Vial IV PUSH 2 mg TID ANGELA Administration Calcitriol 0.25 mcg 12/18/24 17:45 12/23/24 17:01 Calcitriol 0.25 Mcg Capsule PO 0.25 mcg MoWeFr ANGELA Administration Docusate Sodium 100 mg 12/17/24 17:44 Docusate Sodium 100 Mg Capsule PO Q12H PRN Constipation Empagliflozin 10 mg 12/22/24 09:00 12/24/24 08:20 Empagliflozin 10 Mg Tablet PO 10 mg DAILY ANGELA Administration Famotidine 20 mg 12/17/24 21:00 12/24/24 08:20 Famotidine 20 Mg Tablet PO 20 mg Q12HR ANGELA Administration Fluticasone Propionate 1 spray 12/17/24 17:44 Fluticasone Propionate 0.05% Na Spr 16 Gm Btl (*Bkc) NASAL DAILY PRN Congestion Gabapentin 300 mg 12/18/24 09:00 12/24/24 08:20 Gabapentin 300 Mg Capsule PO 300 mg TID ANGELA Administration Hyoscyamine 0.125 mg 12/18/24 03:43 12/24/24 08:20 Hyoscyamine Sulfate 0.125 Mg Tablet PO 0.125 mg Q4H PRN Administration bladder spasms Levothyroxine Sodium 200 mcg 12/18/24 06:30 12/24/24 06:27 Levothyroxine Sodium 100 Mcg Tablet PO 200 mcg DAILY@0630 ANGELA Administration Loratadine 10 mg 12/18/24 09:00 12/24/24 08:20 Loratadine 10 Mg Tablet PO 10 mg DAILY ANGELA Administration Metolazone 2.5 mg 12/20/24 14:10 12/24/24 08:20 Metolazone 2.5 Mg Tablet PO 2.5 mg QAM ANGELA Administration Minoxidil 2.5 mg 12/18/24 09:00 12/24/24 08:20 Minoxidil 2.5 Mg Tablet PO 2.5 mg DAILY ANGELA Administration Multi-Ingred Cream/Lotion/Oil/Oint 1 applic 12/23/24 11:45 12/24/24 08:23 Eucerin Cream 120 Gm Jar TOPICAL 1 applic DAILY ANGELA Administration Oxybutynin Chloride 5 mg 12/21/24 11:31 12/24/24 06:27 Oxybutynin Chloride 5 Mg Tablet PO 5 mg TID PRN Administration spasm Polyethylene Glycol 17 gm 12/17/24 17:44 12/24/24 08:21 Polyethylene Glycol 3350 17 Gm Powd.Pack PO 17 gm DAILY PRN Administration Constipation Potassium Chloride 10 meq 12/18/24 09:00 12/24/24 08:21 Potassium Chloride 10 Meq Er Tablet PO 10 meq DAILY ANGELA Administration Spironolactone 25 mg 12/18/24 09:00 12/24/24 08:21 Spironolactone 25 Mg Tablet PO 25 mg DAILY ANGELA Administration Tamsulosin HCl 0.4 mg 12/18/24 09:00 12/24/24 08:20 Tamsulosin Hcl 0.4 Mg Capsule PO 0.4 mg QAM ANGELA Administration Radiology Results: ITS Impressions Venous Doppler Study 12/17/24 13:43 IMPRESSION: 1. No left leg DVT. Chest X-Ray 12/17/24 14:14 IMPRESSION: 1. Right pleural effusion with associated basilar atelectasis and/or airspace disease. Abdomen Ultrasound 12/21/24 17:12 Impression: 1. Limited study. 2. Mild hepatic steatosis versus hepatocellular disease. Mild splenomegaly. MRI suggested to further evaluate. Labs Labs: Laboratory Results - last 24 hr 12/24/24 05:18 Sodium 130 L Potassium 3.7 Chloride 89 L Carbon Dioxide > 40 H Anion Gap BUN 54 H Creatinine 1.72 H Estim Creat Clear Calc 51 Estimated GFR 39 L Glucose 97 Calcium 8.6 Phosphorus 4.0 Magnesium 2.3 Albumin 2.8 L
--- NOTE | 2024-12-24 12:41 | P.PNCA_ITS ---
Progress Note: A&P Assessment and Plan (1) Venous stasis dermatitis of both lower extremities: Code(s): I87.2 - Venous insufficiency (chronic) (peripheral) Status: Acute (2) Atrial fibrillation: Qualifiers: Atrial fibrillation type: longstanding persistent Qualified Code(s): I48.11 - Longstanding persistent atrial fibrillation Code(s): I48.91 - Unspecified atrial fibrillation Status: Chronic (3) Acute on chronic diastolic heart failure: Code(s): I50.33 - Acute on chronic diastolic (congestive) heart failure Status: Acute (4) Bradycardia: Code(s): R00.1 - Bradycardia, unspecified Status: Acute Plan Diagnosis: 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 Avoid any AV orquidea blocking agents. Telemetry now shows AFib with rates in the 70s By exam he continues to be fluid overload but is improving. Continue IV diuresis with IV Bumex, but will change from TID to BID today. Check daily weight, ins and outs, renal function Continue metolazone Continue spironolactone 25 mg daily Added empagliflozin 10 mg daily Check and replace electrolytes to keep potassium greater than 4 and magnesium greater than 2 Continue apixaban for anticoagulation for atrial fibrillation Subjective Date/time seen: 12/24/24 12:41 Interval history: Reason for encounter: Acute on chronic diastolic and right heart failure, bradycardia and pauses Relevant history: 74-year-old male with history of diastolic dysfunction, chronic atrial fibrillation, chronic right ventricular dysfunction with recurrent heart failure hospitalizations, h/o right [id number] amputation for infection was admitted with symptoms of shortness of breath and lower extremity swelling. Cardiology was consulted for management of acute on chronic diastolic and right ventricular failure and bradycardia, pauses noted on telemetry during this admission. He has a right bundle branch block and leftward axis pattern with a wide QRS on EKG which is chronic. Interval history: Patient states he is still short of breath and his legs are swollen. No chest pain. Telemetry shows atrial fibrillation with rates in the 70s. Date of service 12/22/2024: Reports some improvement in his swelling. Still has shortness of breath and wears his CPAP throughout the day. No chest pain. 12/23/24: Patient is sititng up in bed. Breathing feels better this am and he is not requiring CPAP at this time. No reports of any chest pain or pressure. No dizziness or palpitaitons. Feels LE edema is improved. Date of service 12/24/2024: Feeling better today. Still making good urine. Edema is improving Review of Systems Review of Systems: All systems reviewed & are unremarkable except as noted in HPI and below Constitutional: Constitutional: Reports fatigue and Reports lethargy Eyes: Eyes: Reports no additional eye complaints ENT: Reports system reviewed and no additional complaints, except as documented Cardiovascular: Cardiovascular: Reports as per HPI and Reports dyspnea Respiratory: Respiratory: Reports dyspnea Gastrointestinal: Gastrointestinal: Reports no additional gastrointestinal complaints Musculoskeletal: Musculoskeletal: Reports back pain Integumentary/Breasts: Skin/Breast: Reports system reviewed and no additional complaints, except as docu Neurologic: Reports system reviewed and no additional complaints, except as documented Endocrine: Endocrine: Reports no additional endocrine complaints and Reports fatigue Hematologic/Lymphatic: Hematologic/Lymphatic: Reports no additional hematologic/lymphatic complaints Allergic/Immunologic: Allergic/Immunologic: Reports no additional allergic/immunologic complaints Exam Narrative: General: Alert oriented x3, no acute distress Neck: Supple, JVD + Chest: Bilaterally clear to auscultation, no rales or rhonchi Cardiac: irreg irreg Extremities: Bilateral lower extremity edema 1+. Rt BKA Neurologic: Alert and oriented x3, no focal neurological deficits Const: General: comfortable and no acute distress Other: Morbidly obese gentleman supine in bed watching television with CPAP in place HENMT: Mouth: Yes moist mucous membranes Eyes: Sclera: sclerae normal Neck: Neck: supple Other: Body habitus precludes assessment of JVD Resp: Effort & Inspection: normal respiratory effort Auscultation: clear to auscultation bilaterally Other: Breath sounds are distant given his body habitus but generally clear in both lung wolf Cardio: Rate: regular rate Rhythm: abnormal rhythm irregularly irregular GI: Auscultation: normal bowel sounds Skin: General skin exam: normal color Neuro: Other: Alert and oriented x3 Extrem: Other: Right lower extremity amputation, left lower extremity edema appears to be improving. LIBERTY wrapped up to the knee Objective Data Vital Signs Vital Signs: Vital Signs - 24 hr 12/23/24 16:00 12/23/24 16:00 12/23/24 20:00 Temperature 36.5 C Pulse Rate 72 80 85 Respiratory Rate 15 Blood Pressure 101/58 L Pulse Oximetry 97 Oxygen Delivery Oxygen Flow Rate 12/23/24 20:00 12/23/24 20:55 12/23/24 20:55 Temperature Pulse Rate 71 71 Respiratory Rate Blood Pressure Pulse Oximetry 92 92 92 Oxygen Delivery CPAP CPAP Room Air Oxygen Flow Rate 4 12/23/24 21:28 12/24/24 00:00 12/24/24 02:15 Temperature 36.4 C Pulse Rate 77 73 Respiratory Rate 20 Blood Pressure 119/55 L Pulse Oximetry 98 Oxygen Delivery CPAP Oxygen Flow Rate 12/24/24 04:00 12/24/24 05:54 12/24/24 08:20 Temperature 36.3 C L Pulse Rate 73 72 Respiratory Rate 20 Blood Pressure 108/55 L Pulse Oximetry 97 Oxygen Delivery Room Air Oxygen Flow Rate Intake/Output Intake/Output: Intake & Output 12/21/24 12/22/24 12/23/24 12/24/24 23:59 23:59 23:59 23:59 Intake Total 1040 1380 1491 730 Output Total 5600 5150 8300 650 [facility]4560 [phone] Meds/Results Medications: Active Medications Generic Name Dose Route Start Last Admin Trade Name Freq PRN Reason Stop Dose Admin Acetaminophen 650 mg 12/20/24 13:36 12/24/24 03:22 Acetaminophen 325 Mg Tablet PO 650 mg Q4H PRN Administration fever or pain 1-3 Allopurinol 100 mg 12/18/24 09:00 12/24/24 08:19 Allopurinol 100 Mg Tablet PO 100 mg DAILY ANGELA Administration Apixaban 5 mg 12/17/24 21:00 12/24/24 08:20 Apixaban 5 Mg Tablet PO 5 mg Q12HR ANGELA Administration Bumetanide 2 mg 12/23/24 13:00 12/24/24 08:22 Bumetanide Inj 1 Mg/4 Ml Vial IV PUSH 2 mg TID ANGELA Administration Calcitriol 0.25 mcg 12/18/24 17:45 12/23/24 17:01 Calcitriol 0.25 Mcg Capsule PO 0.25 mcg MoWeFr ANGELA Administration Docusate Sodium 100 mg 12/17/24 17:44 Docusate Sodium 100 Mg Capsule PO Q12H PRN Constipation Empagliflozin 10 mg 12/22/24 09:00 12/24/24 08:20 Empagliflozin 10 Mg Tablet PO 10 mg DAILY ANGELA Administration Famotidine 20 mg 12/17/24 21:00 12/24/24 08:20 Famotidine 20 Mg Tablet PO 20 mg Q12HR ANGELA Administration Fluticasone Propionate 1 spray 12/17/24 17:44 Fluticasone Propionate 0.05% Na Spr 16 Gm Btl (*Bkc) NASAL DAILY PRN Congestion Gabapentin 300 mg 12/18/24 09:00 12/24/24 08:20 Gabapentin 300 Mg Capsule PO 300 mg TID ANGELA Administration Hyoscyamine 0.125 mg 12/18/24 03:43 12/24/24 08:20 Hyoscyamine Sulfate 0.125 Mg Tablet PO 0.125 mg Q4H PRN Administration bladder spasms Levothyroxine Sodium 200 mcg 12/18/24 06:30 12/24/24 06:27 Levothyroxine Sodium 100 Mcg Tablet PO 200 mcg DAILY@0630 ANGELA Administration Loratadine 10 mg 12/18/24 09:00 12/24/24 08:20 Loratadine 10 Mg Tablet PO 10 mg DAILY ANGELA Administration Metolazone 2.5 mg 12/20/24 14:10 12/24/24 08:20 Metolazone 2.5 Mg Tablet PO 2.5 mg QAM ANGELA Administration Minoxidil 2.5 mg 12/18/24 09:00 12/24/24 08:20 Minoxidil 2.5 Mg Tablet PO 2.5 mg DAILY ANGELA Administration Multi-Ingred Cream/Lotion/Oil/Oint 1 applic 12/23/24 11:45 12/24/24 08:23 Eucerin Cream 120 Gm Jar TOPICAL 1 applic DAILY ANGELA Administration Oxybutynin Chloride 5 mg 12/21/24 11:31 12/24/24 06:27 Oxybutynin Chloride 5 Mg Tablet PO 5 mg TID PRN Administration spasm Polyethylene Glycol 17 gm 12/17/24 17:44 12/24/24 08:21 Polyethylene Glycol 3350 17 Gm Powd.Pack PO 17 gm DAILY PRN Administration Constipation Potassium Chloride 10 meq 12/18/24 09:00 12/24/24 08:21 Potassium Chloride 10 Meq Er Tablet PO 10 meq DAILY ANGELA Administration Spironolactone 25 mg 12/18/24 09:00 12/24/24 08:21 Spironolactone 25 Mg Tablet PO 25 mg DAILY ANGELA Administration Tamsulosin HCl 0.4 mg 12/18/24 09:00 12/24/24 08:20 Tamsulosin Hcl 0.4 Mg Capsule PO 0.4 mg QAM ANGELA Administration Radiology Results: ITS Impressions Venous Doppler Study 12/17/24 13:43 IMPRESSION: 1. No left leg DVT. Chest X-Ray 12/17/24 14:14 IMPRESSION: 1. Right pleural effusion with associated basilar atelectasis and/or airspace disease. Abdomen Ultrasound 12/21/24 17:12 Impression: 1. Limited study. 2. Mild hepatic steatosis versus hepatocellular disease. Mild splenomegaly. MRI suggested to further evaluate. Labs Labs: Laboratory Results - last 24 hr 12/24/24 05:18 Sodium 130 L Potassium 3.7 Chloride 89 L Carbon Dioxide > 40 H Anion Gap BUN 54 H Creatinine 1.72 H Estim Creat Clear Calc 51 Estimated GFR 39 L Glucose 97 Calcium 8.6 Phosphorus 4.0 Magnesium 2.3 Albumin 2.8 L Quality VTE Prophylaxis VTE prophylaxis: pharmacologic ordered
[2024-12-25] VITALS (10 sets, daily range): BP systolic 108–140; BP diastolic 49–80; PULSE 71–89; RESP 12–18; TEMP 36.4–36.9; O2SAT 97–100
[2024-12-25 05:04] LABS: Hematocrit 32.8 % (42.0-52.0); Hemoglobin 9.2 g/dL (14.0-18.0); Mean Corpuscular HGB Conc 28.0 g/dl (32-36); Mean Corpuscular Hemoglobin 25.3 pg (26-34); Mean Corpuscular Volume 90.4 fl (80-100); Platelet Count Result 298 k/mm3 (150-375); Red Blood Count 3.63 M/mm3 (4.6-6.20); White Blood Count 7.1 K/mm3 (4.5-10.0)
[2024-12-25 05:25] LABS: Albumin Level 2.9 g/dL (3.5-5.1); Blood Urea Nitrogen 52 mg/dL (9-20); Calcium 8.8 mg/dL (8.4-10.2); Chloride 87 mmol/L (98-107); Estimated CRCL calculation 50 ml/min; Estimated Glomerular Filt Rate 39; Glucose 93 mg/dL (65-110); Potassium 3.6 mmol/L (3.4-5.0); Sodium 131 mmol/L (137-145)
[2024-12-25 05:47] LABS: Thyroid Stimulating Hormone Reflex 8.640 uIU/mL (0.465-4.68)
[2024-12-25 05:49] LABS: Anion Gap 6 mmol/L (4-12); Carbon Dioxide 38 mmol/L (22-30)
[2024-12-25] MEDS: LEVOTHYROXINE SODIUM 100 MCG TABLET 200 MCG PO (05:54)
[2024-12-25 06:12] LABS: Free T4 Free Thyroxine Reflex 0.96 ng/dL (0.78-2.19)
[2024-12-25 06:55] LABS: Total Triiodothyronine (T3) 0.60 NG/ML (0.82-1.58)
[2024-12-25] MEDS: EMPAGLIFLOZIN 10 MG TABLET PO (09:34)
[2024-12-25] MEDS: POTASSIUM CHLORIDE 10 MEQ ER TABLET PO (09:34)
[2024-12-25] MEDS: SPIRONOLACTONE 25 MG TABLET PO (09:34)
[2024-12-25] MEDS: LORATADINE 10 MG TABLET PO (09:34)
[2024-12-25] MEDS: APIXABAN 5 MG TABLET PO ×2 (09:34→20:40)
[2024-12-25] MEDS: FAMOTIDINE 20 MG TABLET PO ×2 (09:34→20:40)
[2024-12-25] MEDS: TAMSULOSIN HCL 0.4 MG CAPSULE PO (09:34)
[2024-12-25] MEDS: GABAPENTIN 300 MG CAPSULE PO ×3 (09:34→16:57)
[2024-12-25] MEDS: HYOSCYAMINE SULFATE 0.125 MG TABLET PO ×3 (09:38→17:04)
[2024-12-25] MEDS: ACETAMINOPHEN 325 MG TABLET 650 MG PO ×4 (09:38→20:45)
[2024-12-25] MEDS: BUMETANIDE INJ 1 MG/4 ML VIAL 2 MG IV PUSH ×2 (09:39→16:57)
[2024-12-25] MEDS: EUCERIN CREAM 120 GM JAR 1 APPLIC TOPICAL (09:39)
--- NOTE | 2024-12-25 11:39 | PM.PNCARD ---
Progress Note: A&P Assessment and Plan (1) Venous stasis dermatitis of both lower extremities: Code(s): I87.2 - Venous insufficiency (chronic) (peripheral) Status: Acute (2) Atrial fibrillation: Qualifiers: Atrial fibrillation type: longstanding persistent Qualified Code(s): I48.11 - Longstanding persistent atrial fibrillation Code(s): I48.91 - Unspecified atrial fibrillation Status: Chronic (3) Acute on chronic diastolic heart failure: Code(s): I50.33 - Acute on chronic diastolic (congestive) heart failure Status: Acute (4) Bradycardia: Code(s): R00.1 - Bradycardia, unspecified Status: Acute Plan Diagnosis: 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 Avoid any AV orquidea blocking agents. Telemetry now shows AFib with rates in the 70s By exam he continues to be fluid overload but is improving. Continue IV diuresis with IV Bumex 2mg BID Check daily weight, ins and outs, renal function Continue metolazone Continue spironolactone 25 mg daily Added empagliflozin 10 mg daily Check and replace electrolytes to keep potassium greater than 4 and magnesium greater than 2 Continue apixaban for anticoagulation for atrial fibrillation Subjective Date/time seen: 12/25/24 11:39 Interval history: Reason for encounter: Acute on chronic diastolic and right heart failure, bradycardia and pauses Relevant history: 74-year-old male with history of diastolic dysfunction, chronic atrial fibrillation, chronic right ventricular dysfunction with recurrent heart failure hospitalizations, h/o right [id number] amputation for infection was admitted with symptoms of shortness of breath and lower extremity swelling. Cardiology was consulted for management of acute on chronic diastolic and right ventricular failure and bradycardia, pauses noted on telemetry during this admission. He has a right bundle branch block and leftward axis pattern with a wide QRS on EKG which is chronic. Interval history: Patient states he is still short of breath and his legs are swollen. No chest pain. Telemetry shows atrial fibrillation with rates in the 70s. Date of service 12/22/2024: Reports some improvement in his swelling. Still has shortness of breath and wears his CPAP throughout the day. No chest pain. 12/23/24: Patient is sititng up in bed. Breathing feels better this am and he is not requiring CPAP at this time. No reports of any chest pain or pressure. No dizziness or palpitaitons. Feels LE edema is improved. Date of service 12/24/2024: Feeling better today. Still making good urine. Edema is improving Date of service 12/25/2024: Complaining of headache but otherwise feels good. No chest pain. Still develops shortness of breath when CPAP removed for more than 1 hr. Review of Systems Review of Systems: All systems reviewed & are unremarkable except as noted in HPI and below Constitutional: Constitutional: Reports fatigue and Reports lethargy Eyes: Eyes: Reports no additional eye complaints ENT: Reports system reviewed and no additional complaints, except as documented Cardiovascular: Cardiovascular: Reports as per HPI and Reports dyspnea Respiratory: Respiratory: Reports dyspnea Gastrointestinal: Gastrointestinal: Reports no additional gastrointestinal complaints Musculoskeletal: Musculoskeletal: Reports back pain Integumentary/Breasts: Skin/Breast: Reports system reviewed and no additional complaints, except as docu Neurologic: Reports system reviewed and no additional complaints, except as documented Endocrine: Endocrine: Reports no additional endocrine complaints and Reports fatigue Hematologic/Lymphatic: Hematologic/Lymphatic: Reports no additional hematologic/lymphatic complaints Allergic/Immunologic: Allergic/Immunologic: Reports no additional allergic/immunologic complaints Exam Narrative: General: Alert oriented x3, no acute distress Neck: Supple, JVD + Chest: Bilaterally clear to auscultation, no rales or rhonchi Cardiac: irreg irreg Extremities: Bilateral lower extremity edema 1+. Rt BKA Neurologic: Alert and oriented x3, no focal neurological deficits Const: General: comfortable and no acute distress Other: Morbidly obese gentleman supine in bed watching television with CPAP in place HENMT: Mouth: Yes moist mucous membranes Eyes: Sclera: sclerae normal Neck: Neck: supple Other: Body habitus precludes assessment of JVD Resp: Effort & Inspection: normal respiratory effort Auscultation: clear to auscultation bilaterally Other: Breath sounds are distant given his body habitus but generally clear in both lung wolf Cardio: Rate: regular rate Rhythm: abnormal rhythm irregularly irregular GI: Auscultation: normal bowel sounds Skin: General skin exam: normal color Neuro: Other: Alert and oriented x3 Extrem: Other: Right lower extremity amputation, left lower extremity edema appears to be improving. LIBERTY wrapped up to the knee Objective Data Vital Signs Vital Signs: Vital Signs - 24 hr 12/24/24 12:00 12/24/24 16:00 12/24/24 16:00 Temperature 36.6 C Pulse Rate 76 84 79 Respiratory Rate 18 Blood Pressure 113/58 L Pulse Oximetry 98 Oxygen Delivery 12/24/24 20:00 12/24/24 20:00 12/24/24 21:04 Temperature Pulse Rate 78 83 78 Respiratory Rate 18 Blood Pressure Pulse Oximetry 98 98 Oxygen Delivery CPAP CPAP 12/24/24 23:57 12/25/24 00:00 12/25/24 01:57 Temperature 36.9 C Pulse Rate 83 77 Respiratory Rate 20 Blood Pressure 118/52 L Pulse Oximetry 99 Oxygen Delivery CPAP 12/25/24 05:10 12/25/24 08:00 12/25/24 09:32 Temperature 36.4 C L Pulse Rate 72 89 74 Respiratory Rate 16 Blood Pressure 140/80 112/63 Pulse Oximetry 98 100 Oxygen Delivery Intake/Output Intake/Output: Intake & Output 12/22/24 12/23/24 12/24/24 12/25/24 23:59 23:59 23:59 23:59 Intake Total 1380 1491 1813 980 Output Total 5150 8300 4300 1900 [facility] [phone] Meds/Results Medications: Active Medications Generic Name Dose Route Start Last Admin Trade Name Alanis PRN Reason Stop Dose Admin Acetaminophen 650 mg 12/20/24 13:36 12/25/24 09:38 Acetaminophen 325 Mg Tablet PO 650 mg Q4H PRN Administration fever or pain 1-3 Allopurinol 100 mg 12/18/24 09:00 12/25/24 09:33 Allopurinol 100 Mg Tablet PO 100 mg DAILY ANGELA Administration Apixaban 5 mg 12/17/24 21:00 12/25/24 09:34 Apixaban 5 Mg Tablet PO 5 mg Q12HR ANGELA Administration Bumetanide 2 mg 12/24/24 17:00 12/25/24 09:39 Bumetanide Inj 1 Mg/4 Ml Vial IV PUSH 2 mg BID ANGELA Administration Calcitriol 0.25 mcg 12/18/24 17:45 12/23/24 17:01 Calcitriol 0.25 Mcg Capsule PO 0.25 mcg MoWeFr ANGELA Administration Docusate Sodium 100 mg 12/17/24 17:44 Docusate Sodium 100 Mg Capsule PO Q12H PRN Constipation Empagliflozin 10 mg 12/22/24 09:00 12/25/24 09:34 Empagliflozin 10 Mg Tablet PO 10 mg DAILY ANGELA Administration Famotidine 20 mg 12/17/24 21:00 12/25/24 09:34 Famotidine 20 Mg Tablet PO 20 mg Q12HR ANGELA Administration Fluticasone Propionate 1 spray 12/17/24 17:44 Fluticasone Propionate 0.05% Na Spr 16 Gm Btl (*Bkc) NASAL DAILY PRN Congestion Gabapentin 300 mg 12/18/24 09:00 12/25/24 09:34 Gabapentin 300 Mg Capsule PO 300 mg TID ANGELA Administration Hyoscyamine 0.125 mg 12/18/24 03:43 12/25/24 09:38 Hyoscyamine Sulfate 0.125 Mg Tablet PO 0.125 mg Q4H PRN Administration bladder spasms Levothyroxine Sodium 200 mcg 12/18/24 06:30 12/25/24 05:54 Levothyroxine Sodium 100 Mcg Tablet PO 200 mcg DAILY@0630 ANGELA Administration Loratadine 10 mg 12/18/24 09:00 12/25/24 09:34 Loratadine 10 Mg Tablet PO 10 mg DAILY ANGELA Administration Metolazone 2.5 mg 12/20/24 14:10 12/25/24 09:34 Metolazone 2.5 Mg Tablet PO 2.5 mg QAM ANGELA Administration Minoxidil 2.5 mg 12/18/24 09:00 12/25/24 09:34 Minoxidil 2.5 Mg Tablet PO 2.5 mg DAILY ANGELA Administration Multi-Ingred Cream/Lotion/Oil/Oint 1 applic 12/23/24 11:45 12/25/24 09:39 Eucerin Cream 120 Gm Jar TOPICAL 1 applic DAILY ANGELA Administration Oxybutynin Chloride 5 mg 12/21/24 11:31 12/24/24 20:56 Oxybutynin Chloride 5 Mg Tablet PO 5 mg TID PRN Administration spasm Polyethylene Glycol 17 gm 12/17/24 17:44 12/24/24 08:21 Polyethylene Glycol 3350 17 Gm Powd.Pack PO 17 gm DAILY PRN Administration Constipation Potassium Chloride 10 meq 12/18/24 09:00 12/25/24 09:34 Potassium Chloride 10 Meq Er Tablet PO 10 meq DAILY ANGELA Administration Spironolactone 25 mg 12/18/24 09:00 12/25/24 09:34 Spironolactone 25 Mg Tablet PO 25 mg DAILY ANGELA Administration Tamsulosin HCl 0.4 mg 12/18/24 09:00 12/25/24 09:34 Tamsulosin Hcl 0.4 Mg Capsule PO 0.4 mg QAM ANGELA Administration Radiology Results: ITS Impressions Venous Doppler Study 12/17/24 13:43 IMPRESSION: 1. No left leg DVT. Chest X-Ray 12/17/24 14:14 IMPRESSION: 1. Right pleural effusion with associated basilar atelectasis and/or airspace disease. Abdomen Ultrasound 12/21/24 17:12 Impression: 1. Limited study. 2. Mild hepatic steatosis versus hepatocellular disease. Mild splenomegaly. MRI suggested to further evaluate. Labs Labs: Laboratory Results - last 24 hr 12/25/24 04:22 WBC 7.1 RBC 3.63 L Hgb 9.2 L Hct 32.8 L MCV 90.4 MCH 25.3 L MCHC 28.0 L RDW 15.2 H Plt Count 298 MPV 10.6 H Sodium 131 L Potassium 3.6 Chloride 87 L Carbon Dioxide 38 H Anion Gap 6 BUN 52 H Creatinine 1.72 H Estim Creat Clear Calc 50 Estimated GFR 39 L Glucose 93 Calcium 8.8 Phosphorus 4.2 Albumin 2.9 L TSH (Reflex) 8.640 H Free T4 0.96 Total T3 0.60 L Quality VTE Prophylaxis VTE prophylaxis: pharmacologic ordered
--- NOTE | 2024-12-25 12:35 | PM.IMPN ---
Progress Note: A&P Assessment and Plan (1) CHF (congestive heart failure): Qualifiers: Heart failure chronicity: chronic Heart failure type: diastolic Qualified Code(s): I50.32 - Chronic diastolic (congestive) heart failure Code(s): I50.9 - Heart failure, unspecified Status: Chronic Assessment and Plan: Acute on chronic systolic diastolic CHF with probably a component of right sided failure BNP 1160. CXR showing right pleural effusion with associated basilar atelectasis and/or airspace disease. Echo EF 65-70%, abnormal diastolic function, RV severely enlarged with reduced function. Moderate bi-atrial enlargement. Mild pulm HTN (40mmHg) At home, patient on Bumex 1 mg t.i.d. but not taking as prescribed and patient also out of his spironolactone for past week. Bumex 2mg IV TID started. Metolazone and spironolactone resumed. Fluid balance -24L. Developing contraction alkalosis Bumex decreased to to 2 mg IV BID yesterday. Compliance with medications was stressed. (2) Hypokalemia: Code(s): E87.6 - Hypokalemia Status: Acute Assessment and Plan: Monitor potassium level and replace as needed. (3) Atrial fibrillation: Qualifiers: Atrial fibrillation type: longstanding persistent Qualified Code(s): I48.11 - Longstanding persistent atrial fibrillation Code(s): I48.91 - Unspecified atrial fibrillation Status: Chronic Assessment and Plan: Patient with paroxysmal atrial fibrillation. Patient was on metoprolol for rate control but held due to bradycardia. Heart rate stable Patient remains on Eliquis. Monitor on telemetry. Cardiology following. (4) Stage 3b chronic kidney disease: Code(s): N18.32 - Chronic kidney disease, stage 3b Status: Chronic Assessment and Plan: Patient with Stage IIIB chronic kidney disease. Baseline creatinine varies between 1.7-2.8. Currently at 1.7 and stable. Tolerating diuresis. Continue to monitor. 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 Wound care following. PT/OT. Resume Jayesh wraps as patient tolerates. (6) Hypothyroidism: Qualifiers: Hypothyroidism type: acquired Qualified Code(s): E03.9 - Hypothyroidism, unspecified Code(s): E03.9 - Hypothyroidism, unspecified Status: Chronic Assessment and Plan: Patient with Hypothyroidism. TSH mildly elevated at 8.6 but normal FT4. Continue Synthroid. Defer to his PCP for repeat testing once he is well (7) Essential (primary) hypertension: Code(s): I10 - Essential (primary) hypertension Status: Chronic Assessment and Plan: Patient's blood pressure was reviewed on 12/25 Blood pressure remains well controlled. Will continue to monitor (8) AMELIA (obstructive sleep apnea): Code(s): G47.33 - Obstructive sleep apnea (adult) (pediatric) Status: Chronic Assessment and Plan: AMELIA on CPAP Plan Bladder spasms with Miller in situ. On Levsin p.r.n. also added oxybutynin p.r.n. Order to remove Miller has been placed. Abd pain - Abd US 12/21 showing mild hepatic steatosis vs hepatocellular disease and mild splenomegaly. MRI recommended. CT Abd without contrast September 2024 showing no acute hepatic findings. LFTs recently were normal. Check lipase. Defer to outpatient for further imaging of the liver unless LFTs become elevated. DVT Prophylaxis: Eliquis Code Status: Full code Subjective Date/time seen: 12/25/24 12:35 Interval history: 74yo male with right BKA, lymphedema, iron deficiency anemia, PVD, gout, atrial fibrillation, AMELIA, CHF, hypothyroidism, HLD, and HTN presents here with shortness of breath and worsening edema. Feels achy today with headache. He does use the CPAP frequently during the day for comfort. Normal bowel movements. Does have abdominal pain but eating normally. No nausea or vomiting. Exam Narrative: AF 97.5 112/63 79 16 100% cpap Gen - NARD Chest -lungs clear anteriorly. CV - RRR S1/S2. Telemetry showing PVCs and normal sinus rhythm. Abd -soft. Obese. Diffuse guarding with pain. No obvious rebound. - Miller secured draining clear yellow urine. Ext - Rt BKA. Trace-1+ left lower extremity edema. Neuro - Alert and appropriate Psych - Nml mood and affect Skin - Warm and dry. Right posterior BKA stump dressing is clean dry intact. Objective Data Vital Signs Vital Signs: Vital Signs - 24 hr 12/24/24 16:00 12/24/24 16:00 12/24/24 20:00 Temperature 97.8 F Pulse Rate 84 79 78 Respiratory Rate 18 18 Blood Pressure 113/58 L Pulse Oximetry 98 98 Oxygen Delivery CPAP 12/24/24 20:00 12/24/24 21:04 12/24/24 23:57 Temperature 98.5 F Pulse Rate 83 78 83 Respiratory Rate 20 Blood Pressure 118/52 L Pulse Oximetry 98 99 Oxygen Delivery CPAP 12/25/24 00:00 12/25/24 01:57 12/25/24 05:10 Temperature 97.5 F L Pulse Rate 77 72 Respiratory Rate 16 Blood Pressure 140/80 Pulse Oximetry 98 Oxygen Delivery CPAP 12/25/24 08:00 12/25/24 09:32 12/25/24 12:00 Temperature Pulse Rate 89 74 79 Respiratory Rate Blood Pressure 112/63 Pulse Oximetry 100 Oxygen Delivery Intake/Output Intake/Output: Intake & Output 12/22/24 12/23/24 12/24/24 12/25/24 23:59 23:59 23:59 23:59 Intake Total 1380 1491 1813 980 Output Total 5150 8300 4300 1900 [facility] -[phone] Meds/Results Medications: Active Medications Generic Name Dose Route Start Last Admin Trade Name Alanis PRN Reason Stop Dose Admin Acetaminophen 650 mg 12/20/24 13:36 12/25/24 09:38 Acetaminophen 325 Mg Tablet PO 650 mg Q4H PRN Administration fever or pain 1-3 Allopurinol 100 mg 12/18/24 09:00 12/25/24 09:33 Allopurinol 100 Mg Tablet PO 100 mg DAILY ANGELA Administration Apixaban 5 mg 12/17/24 21:00 12/25/24 09:34 Apixaban 5 Mg Tablet PO 5 mg Q12HR ANGELA Administration Bumetanide 2 mg 12/24/24 17:00 12/25/24 09:39 Bumetanide Inj 1 Mg/4 Ml Vial IV PUSH 2 mg BID ANGELA Administration Calcitriol 0.25 mcg 12/18/24 17:45 12/23/24 17:01 Calcitriol 0.25 Mcg Capsule PO 0.25 mcg MoWeFr ANEGLA Administration Docusate Sodium 100 mg 12/17/24 17:44 Docusate Sodium 100 Mg Capsule PO Q12H PRN Constipation Empagliflozin 10 mg 12/22/24 09:00 12/25/24 09:34 Empagliflozin 10 Mg Tablet PO 10 mg DAILY ANGELA Administration Famotidine 20 mg 12/17/24 21:00 12/25/24 09:34 Famotidine 20 Mg Tablet PO 20 mg Q12HR ANGELA Administration Fluticasone Propionate 1 spray 12/17/24 17:44 Fluticasone Propionate 0.05% Na Spr 16 Gm Btl (*Bkc) NASAL DAILY PRN Congestion Gabapentin 300 mg 12/18/24 09:00 12/25/24 09:34 Gabapentin 300 Mg Capsule PO 300 mg TID ANGELA Administration Hyoscyamine 0.125 mg 12/18/24 03:43 12/25/24 09:38 Hyoscyamine Sulfate 0.125 Mg Tablet PO 0.125 mg Q4H PRN Administration bladder spasms Levothyroxine Sodium 200 mcg 12/18/24 06:30 12/25/24 05:54 Levothyroxine Sodium 100 Mcg Tablet PO 200 mcg DAILY@0630 ANGELA Administration Loratadine 10 mg 12/18/24 09:00 12/25/24 09:34 Loratadine 10 Mg Tablet PO 10 mg DAILY ANGELA Administration Metolazone 2.5 mg 12/20/24 14:10 12/25/24 09:34 Metolazone 2.5 Mg Tablet PO 2.5 mg QAM ANGELA Administration Minoxidil 2.5 mg 12/18/24 09:00 12/25/24 09:34 Minoxidil 2.5 Mg Tablet PO 2.5 mg DAILY ANGELA Administration Multi-Ingred Cream/Lotion/Oil/Oint 1 applic 12/23/24 11:45 12/25/24 09:39 Eucerin Cream 120 Gm Jar TOPICAL 1 applic DAILY ANGELA Administration Oxybutynin Chloride 5 mg 12/21/24 11:31 12/24/24 20:56 Oxybutynin Chloride 5 Mg Tablet PO 5 mg TID PRN Administration spasm Polyethylene Glycol 17 gm 12/17/24 17:44 12/24/24 08:21 Polyethylene Glycol 3350 17 Gm Powd.Pack PO 17 gm DAILY PRN Administration Constipation Potassium Chloride 10 meq 12/18/24 09:00 12/25/24 09:34 Potassium Chloride 10 Meq Er Tablet PO 10 meq DAILY ANGELA Administration Spironolactone 25 mg 12/18/24 09:00 12/25/24 09:34 Spironolactone 25 Mg Tablet PO 25 mg DAILY ANGELA Administration Tamsulosin HCl 0.4 mg 12/18/24 09:00 12/25/24 09:34 Tamsulosin Hcl 0.4 Mg Capsule PO 0.4 mg QAM ANGELA Administration Radiology Results: ITS Impressions Venous Doppler Study 12/17/24 13:43 IMPRESSION: 1. No left leg DVT. Chest X-Ray 12/17/24 14:14 IMPRESSION: 1. Right pleural effusion with associated basilar atelectasis and/or airspace disease. Abdomen Ultrasound 12/21/24 17:12 Impression: 1. Limited study. 2. Mild hepatic steatosis versus hepatocellular disease. Mild splenomegaly. MRI suggested to further evaluate. Labs Labs: Laboratory Results - last 24 hr 12/25/24 04:22 WBC 7.1 RBC 3.63 L Hgb 9.2 L Hct 32.8 L MCV 90.4 MCH 25.3 L MCHC 28.0 L RDW 15.2 H Plt Count 298 MPV 10.6 H Sodium 131 L Potassium 3.6 Chloride 87 L Carbon Dioxide 38 H Anion Gap 6 BUN 52 H Creatinine 1.72 H Estim Creat Clear Calc 50 Estimated GFR 39 L Glucose 93 Calcium 8.8 Phosphorus 4.2 Albumin 2.9 L TSH (Reflex) 8.640 H Free T4 0.96 Total T3 0.60 L
--- NOTE | 2024-12-25 13:41 | PCPTNOTE ---
Patient refused PT this afternoon stating he does not feel well. Patient states he has a headache, generalized pain and feels SOB. PT will continue to follow per plan of care.
[2024-12-26] VITALS (8 sets, daily range): BP systolic 111–119; BP diastolic 45–53; PULSE 72–80; RESP 12–20; TEMP 36.2–36.9; O2SAT 98–99
[2024-12-26 04:54] LABS: Hematocrit 35.1 % (42.0-52.0); Hemoglobin 10.1 g/dL (14.0-18.0); Mean Corpuscular HGB Conc 28.8 g/dl (32-36); Mean Corpuscular Hemoglobin 26.1 pg (26-34); Mean Corpuscular Volume 90.7 fl (80-100); Platelet Count Result 312 k/mm3 (150-375); Red Blood Count 3.87 M/mm3 (4.6-6.20); White Blood Count 7.5 K/mm3 (4.5-10.0)
[2024-12-26 05:26] LABS: Alanine Aminotransferase 11 U/L (6-50); Albumin Level 3.1 g/dL (3.5-5.1); Alkaline Phosphatase 65 U/L (38-126); Aspartate Amino Transferase 22 U/L (17-59); Bilirubin,Total 0.3 mg/dL (0.2-1.3); Blood Urea Nitrogen 49 mg/dL (9-20); Calcium 8.9 mg/dL (8.4-10.2); Chloride 87 mmol/L (98-107); Estimated CRCL calculation 48 ml/min; Estimated Glomerular Filt Rate 37; Glucose 96 mg/dL (65-110); Lipase 102 U/L (23-300); Magnesium 2.4 mg/dL (1.6-2.3); Potassium 3.5 mmol/L (3.4-5.0); Sodium 131 mmol/L (137-145); Total Protein 5.7 g/dL (6.3-8.2)
[2024-12-26 05:29] LABS: Carbon Dioxide > 40 mmol/L (22-30)
[2024-12-26] MEDS: LEVOTHYROXINE SODIUM 100 MCG TABLET 200 MCG PO (05:45)
[2024-12-26] MEDS: APIXABAN 5 MG TABLET PO ×2 (08:50→21:16)
[2024-12-26] MEDS: LORATADINE 10 MG TABLET PO (08:50)
[2024-12-26] MEDS: FAMOTIDINE 20 MG TABLET PO ×2 (08:51→21:16)
[2024-12-26] MEDS: GABAPENTIN 300 MG CAPSULE PO ×3 (08:51→17:26)
[2024-12-26] MEDS: TAMSULOSIN HCL 0.4 MG CAPSULE PO (08:51)
[2024-12-26] MEDS: SPIRONOLACTONE 25 MG TABLET PO (08:51)
[2024-12-26] MEDS: POTASSIUM CHLORIDE 10 MEQ ER TABLET PO (08:51)
[2024-12-26] MEDS: EMPAGLIFLOZIN 10 MG TABLET PO (08:51)
[2024-12-26] MEDS: EUCERIN CREAM 120 GM JAR 1 APPLIC TOPICAL (08:52)
[2024-12-26] MEDS: ACETAMINOPHEN 325 MG TABLET 650 MG PO ×3 (08:54→21:16)
[2024-12-26] MEDS: POTASSIUM CHLORIDE 20 MEQ ER TABLET 40 MEQ PO (08:54)
[2024-12-26] MEDS: BUMETANIDE INJ 1 MG/4 ML VIAL 2 MG IV PUSH (08:57)
--- NOTE | 2024-12-26 13:11 | PM.PNCARD ---
Progress Note: A&P Assessment and Plan (1) Venous stasis dermatitis of both lower extremities: Code(s): I87.2 - Venous insufficiency (chronic) (peripheral) Status: Acute (2) Atrial fibrillation: Qualifiers: Atrial fibrillation type: longstanding persistent Qualified Code(s): I48.11 - Longstanding persistent atrial fibrillation Code(s): I48.91 - Unspecified atrial fibrillation Status: Chronic (3) Acute on chronic diastolic heart failure: Code(s): I50.33 - Acute on chronic diastolic (congestive) heart failure Status: Acute (4) Bradycardia: Code(s): R00.1 - Bradycardia, unspecified Status: Acute Plan Diagnosis: Acute on chronic diastolic and right ventricular failure; echo showed normal LVEF of 65-70%, RV pressure and volume overload, mild MR, mild TR, mild pulmonary hypertension with PASP of 40 mm Hg Chronic atrial fibrillation-telemetry shows AFib with rates in the 70s Hypokalemia with potassium of 3.3 Hypertension-controlled PVD CKD with baseline creatinine 1.5-2 Plan: Beta-chuck was stopped due to bradycardia. Avoid any AV orquidea blocking agents. Telemetry now shows AFib with rates in the 70s Decrease Bumex to 1 mg b.i.d. and consider changing to oral therapy tomorrow Check daily weight, ins and outs, renal function Continue metolazone Continue spironolactone 25 mg daily DC Jardiance is patient does not feel pulses started this medicine Check and replace electrolytes to keep potassium greater than 4 and magnesium greater than 2 Continue apixaban for anticoagulation for atrial fibrillation Subjective Date/time seen: 12/26/24 13:11 Interval history: Patient is here for evaluation of CHF and anasarca No acute events Patient is complaining of headache blurry vision dizziness Telemetry atrial fibrillation rate 70s Review of Systems Review of Systems: All systems reviewed & are unremarkable except as noted in HPI and below Exam Narrative: General: Alert oriented x3, no acute distress Neck: Supple, JVD + Chest: Bilaterally clear to auscultation, no rales or rhonchi Cardiac: irreg irreg Extremities: Left lower extremity edema 1+. Rt BKA Neurologic: Alert and oriented x3, no focal neurological deficits Const: General: comfortable and no acute distress Other: Morbidly obese gentleman supine in bed watching television with CPAP in place HENMT: Mouth: Yes moist mucous membranes Eyes: Sclera: sclerae normal Neck: Neck: supple Other: Body habitus precludes assessment of JVD Resp: Effort & Inspection: normal respiratory effort Auscultation: clear to auscultation bilaterally Other: Breath sounds are distant given his body habitus but generally clear in both lung wolf Cardio: Rate: regular rate Rhythm: abnormal rhythm irregularly irregular GI: Auscultation: normal bowel sounds Skin: General skin exam: normal color Neuro: Other: Alert and oriented x3 Extrem: Other: Right lower extremity amputation, left lower extremity edema appears to be improving. LIBERTY wrapped up to the knee Objective Data Vital Signs Vital Signs: Vital Signs - 24 hr 12/25/24 15:49 12/25/24 16:00 12/25/24 20:00 Temperature 36.9 C Pulse Rate 83 71 73 Respiratory Rate 18 12 Blood Pressure 108/49 L Pulse Oximetry 98 98 Oxygen Delivery CPAP 12/25/24 20:00 12/25/24 20:04 12/25/24 21:54 Temperature 36.9 C Pulse Rate 76 78 73 Respiratory Rate 12 Blood Pressure 110/53 L Pulse Oximetry 97 98 Oxygen Delivery CPAP 12/26/24 00:00 12/26/24 04:00 12/26/24 05:29 Temperature 36.2 C L Pulse Rate 72 72 72 Respiratory Rate 12 Blood Pressure 119/53 L Pulse Oximetry 99 Oxygen Delivery 12/26/24 08:00 12/26/24 08:00 12/26/24 08:51 Temperature 36.9 C Pulse Rate 74 74 Respiratory Rate 18 Blood Pressure 118/53 L Pulse Oximetry 98 Oxygen Delivery Room Air Intake/Output Intake/Output: Intake & Output 12/23/24 12/24/24 12/25/24 12/26/24 23:59 23:59 23:59 23:59 Intake Total 1491 1813 3440 500 Output Total 8300 4300 4300 0664 [facility] -[phone] Meds/Results Medications: Active Medications Generic Name Dose Route Start Last Admin Trade Name Freq PRN Reason Stop Dose Admin Acetaminophen 650 mg 12/20/24 13:36 12/26/24 08:54 Acetaminophen 325 Mg Tablet PO 650 mg Q4H PRN Administration fever or pain 1-3 Allopurinol 100 mg 12/18/24 09:00 12/26/24 08:51 Allopurinol 100 Mg Tablet PO 100 mg DAILY ANGELA Administration Apixaban 5 mg 12/17/24 21:00 12/26/24 08:50 Apixaban 5 Mg Tablet PO 5 mg Q12HR ANGELA Administration Artificial Tears 1 drop 12/26/24 12:38 Artificial Tears Ophth Soln 15 Ml Bottle EACH EYE QID PRN Dry Eye(s) Bumetanide 2 mg 12/24/24 17:00 12/26/24 08:57 Bumetanide Inj 1 Mg/4 Ml Vial IV PUSH 2 mg BID ANGELA Administration Calcitriol 0.25 mcg 12/18/24 17:45 12/25/24 16:57 Calcitriol 0.25 Mcg Capsule PO 0.25 mcg MoWeFr ANGELA Administration Docusate Sodium 100 mg 12/17/24 17:44 Docusate Sodium 100 Mg Capsule PO Q12H PRN Constipation Empagliflozin 10 mg 12/22/24 09:00 12/26/24 08:51 Empagliflozin 10 Mg Tablet PO 10 mg DAILY ANGELA Administration Famotidine 20 mg 12/17/24 21:00 12/26/24 08:51 Famotidine 20 Mg Tablet PO 20 mg Q12HR ANGELA Administration Fluticasone Propionate 1 spray 12/17/24 17:44 Fluticasone Propionate 0.05% Na Spr 16 Gm Btl (*Bkc) NASAL DAILY PRN Congestion Gabapentin 300 mg 12/18/24 09:00 12/26/24 12:37 Gabapentin 300 Mg Capsule PO 300 mg TID ANGELA Administration Hyoscyamine 0.125 mg 12/18/24 03:43 12/25/24 17:04 Hyoscyamine Sulfate 0.125 Mg Tablet PO 0.125 mg Q4H PRN Administration bladder spasms Levothyroxine Sodium 200 mcg 12/18/24 06:30 12/26/24 05:45 Levothyroxine Sodium 100 Mcg Tablet PO 200 mcg DAILY@0630 ANGELA Administration Loratadine 10 mg 12/18/24 09:00 12/26/24 08:50 Loratadine 10 Mg Tablet PO 10 mg DAILY ANGELA Administration Metolazone 2.5 mg 12/20/24 14:10 12/26/24 08:51 Metolazone 2.5 Mg Tablet PO 2.5 mg QAM ANGELA Administration Minoxidil 2.5 mg 12/18/24 09:00 12/26/24 08:50 Minoxidil 2.5 Mg Tablet PO 2.5 mg DAILY ANGELA Administration Multi-Ingred Cream/Lotion/Oil/Oint 1 applic 12/23/24 11:45 12/26/24 08:52 Eucerin Cream 120 Gm Jar TOPICAL 1 applic DAILY ANGELA Administration Oxybutynin Chloride 5 mg 12/21/24 11:31 12/26/24 08:54 Oxybutynin Chloride 5 Mg Tablet PO 5 mg TID PRN Administration spasm Polyethylene Glycol 17 gm 12/17/24 17:44 12/26/24 09:09 Polyethylene Glycol 3350 17 Gm Powd.Pack PO 17 gm DAILY PRN Administration Constipation Potassium Chloride 10 meq 12/18/24 09:00 12/26/24 08:51 Potassium Chloride 10 Meq Er Tablet PO 10 meq DAILY ANGELA Administration Spironolactone 25 mg 12/18/24 09:00 12/26/24 08:51 Spironolactone 25 Mg Tablet PO 25 mg DAILY ANGELA Administration Tamsulosin HCl 0.4 mg 12/18/24 09:00 12/26/24 08:51 Tamsulosin Hcl 0.4 Mg Capsule PO 0.4 mg QAM ANGELA Administration Radiology Results: ITS Impressions Venous Doppler Study 12/17/24 13:43 IMPRESSION: 1. No left leg DVT. Chest X-Ray 12/17/24 14:14 IMPRESSION: 1. Right pleural effusion with associated basilar atelectasis and/or airspace disease. Abdomen Ultrasound 12/21/24 17:12 Impression: 1. Limited study. 2. Mild hepatic steatosis versus hepatocellular disease. Mild splenomegaly. MRI suggested to further evaluate. Labs Labs: Laboratory Results - last 24 hr 12/26/24 04:47 WBC 7.5 RBC 3.87 L Hgb 10.1 L Hct 35.1 L MCV 90.7 MCH 26.1 MCHC 28.8 L RDW 15.1 H Plt Count 312 MPV 10.6 H Sodium 131 L Potassium 3.5 Chloride 87 L Carbon Dioxide > 40 H Anion Gap BUN 49 H Creatinine 1.80 H Estim Creat Clear Calc 48 Estimated GFR 37 L Glucose 96 Calcium 8.9 Magnesium 2.4 H Total Bilirubin 0.3 AST 22 ALT 11 Alkaline Phosphatase 65 Total Protein 5.7 L Albumin 3.1 L Lipase 102
[2024-12-26] MEDS: ARTIFICIAL TEARS OPHTH SOLN 15 ML BOTTLE 1 DROP EACH EYE (13:32)
--- NOTE | 2024-12-26 15:28 | P.PNIM_ITS ---
Progress Note: A&P Assessment and Plan (1) CHF (congestive heart failure): Qualifiers: Heart failure chronicity: chronic Heart failure type: diastolic Qualified Code(s): I50.32 - Chronic diastolic (congestive) heart failure Code(s): I50.9 - Heart failure, unspecified Status: Chronic Assessment and Plan: Acute on chronic systolic diastolic CHF with probably a component of right sided failure BNP 1160. CXR showing right pleural effusion with associated basilar atelect asis and/or airspace disease. Echo EF 65-70%, abnormal diastolic function, RV severely enlarged with reduced function. Moderate bi-atrial enlargement. Mild pulm HTN (40mmHg) At home, patient on Bumex 1 mg t.i.d. but not taking as prescribed and patient also out of his spironolactone for past week. Bumex 2mg IV TID started. Metolazone and spironolactone resumed. Bumex decreased to to 2 mg IV BID on 12/24 Fluid balance -24.7L. Diuresis finally slowing down. Developing contraction alkalosis Compliance with medications was stressed. Bumex decreased to 1mg IV Q12hr but this is lower than his oral dose. Will discuss with Cardiology. (2) Hypokalemia: Code(s): E87.6 - Hypokalemia Status: Acute Assessment and Plan: Potassium 3.5. Monitor potassium level and replace as needed. (3) Atrial fibrillation: Qualifiers: Atrial fibrillation type: longstanding persistent Qualified Code(s): I48.11 - Longstanding persistent atrial fibrillation Code(s): I48.91 - Unspecified atrial fibrillation Status: Chronic Assessment and Plan: Patient with pAFib Patient was on metoprolol for rate control but held due to bradycardia. Heart rate stable Patient remains on Eliquis. Monitor on telemetry. Cardiology following. (4) Stage 3b chronic kidney disease: Code(s): N18.32 - Chronic kidney disease, stage 3b Status: Chronic Assessment and Plan: Patient with Stage IIIB chronic kidney disease. Baseline creatinine varies between 1.7-2.8. Currently at 1.8 and stable. Tolerating diuresis. Continue to monitor. 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 Wound care following. PT/OT ordered but refusing. He is refusing to be out of bed. He was refusing SNF placement Encouraged patient to be out of bed. (6) Hypothyroidism: Qualifiers: Hypothyroidism type: acquired Qualified Code(s): E03.9 - Hypothyroidism, unspecified Code(s): E03.9 - Hypothyroidism, unspecified Status: Chronic Assessment and Plan: Patient with hypothyroidism. TSH mildly elevated at 8.6 but normal FT4. Continue Synthroid. Defer to his PCP for repeat testing once he is well (7) Essential (primary) hypertension: Code(s): I10 - Essential (primary) hypertension Status: Chronic Assessment and Plan: Patient's blood pressure was reviewed on 12/26 Blood pressure remains well controlled. Will continue to monitor (8) AMELIA (obstructive sleep apnea): Code(s): G47.33 - Obstructive sleep apnea (adult) (pediatric) Status: Chronic Assessment and Plan: AMELIA on CPAP Plan Bladder spasms with Miller in situ. On Levsin p.r.n. also added oxybutynin p.r.n. Order to remove Miller has been placed. Abd pain - Abd US 12/21 showing mild hepatic steatosis vs hepatocellular disease and mild splenomegaly. MRI recommended. CT Abd without contrast September 2024 showing no acute hepatic findings. LFTs and lipase recently were normal. Defer to outpatient for further imaging of the liver unless LFTs become elevated here. DVT Prophylaxis: Eliquis Code Status: Full code Subjective Date/time seen: 12/26/24 15:28 Interval history: 74yo male with right BKA, lymphedema, iron deficiency anemia, PVD, gout, atrial fibrillation, AMELIA, CHF, hypothyroidism, HLD, and HTN presents here with shortness of breath and worsening edema. Feeling 'not so good'. Again complains of headache, body aches. Has pain everywhere. +nausea. Not been out of bed he states due to swollen scrotum (which it is not swollen now). He has been refusing PT/OT. Refusing to have Miller to be taken out Exam Narrative: AF 98.4 118/53 80 18 98% ra Gen - NARD resting quietly on BiPAP Chest -lungs clear anteriorly. CV - RRR S1/S2. Telemetry showing normal sinus rhythm but episodes of AFib /flutter Abd -soft. Obese. Diffuse guarding with pain. - Miller secured draining clear yellow urine. Scrotal edema resolved Ext - Rt BKA. Trace-1+ left lower extremity edema. Tender to palpate multiple areas in the lower extremity Neuro - Alert and appropriate Psych - Nml mood but odd affect Skin - Warm and dry. Right posterior BKA stump dressing in place. LE Scale improved. Objective Data Vital Signs Vital Signs: Vital Signs - 24 hr 12/25/24 15:49 12/25/24 16:00 12/25/24 20:00 Temperature 98.4 F Pulse Rate 83 71 73 Respiratory Rate 18 12 Blood Pressure 108/49 L Pulse Oximetry 98 98 Oxygen Delivery CPAP 12/25/24 20:00 12/25/24 20:04 12/25/24 21:54 Temperature 98.4 F Pulse Rate 76 78 73 Respiratory Rate 12 Blood Pressure 110/53 L Pulse Oximetry 97 98 Oxygen Delivery CPAP 12/26/24 00:00 12/26/24 04:00 12/26/24 05:29 Temperature 97.1 F L Pulse Rate 72 72 72 Respiratory Rate 12 Blood Pressure 119/53 L Pulse Oximetry 99 Oxygen Delivery 12/26/24 08:00 12/26/24 08:00 12/26/24 08:51 Temperature 98.4 F Pulse Rate 74 74 Respiratory Rate 18 Blood Pressure 118/53 L Pulse Oximetry 98 Oxygen Delivery Room Air 12/26/24 12:00 Temperature Pulse Rate 80 Respiratory Rate Blood Pressure Pulse Oximetry Oxygen Delivery Intake/Output Intake/Output: Intake & Output 12/23/24 12/24/24 12/25/24 12/26/24 23:59 23:59 23:59 23:59 Intake Total 1491 1813 3440 1220 Output Total 8300 4300 4300 1999 [facility] -[phone] [phone] Meds/Results Medications: Active Medications Generic Name Dose Route Start Last Admin Trade Name Freq PRN Reason Stop Dose Admin Acetaminophen 650 mg 12/20/24 13:36 12/26/24 08:54 Acetaminophen 325 Mg Tablet PO 650 mg Q4H PRN Administration fever or pain 1-3 Allopurinol 100 mg 12/18/24 09:00 12/26/24 08:51 Allopurinol 100 Mg Tablet PO 100 mg DAILY ANGELA Administration Apixaban 5 mg 12/17/24 21:00 12/26/24 08:50 Apixaban 5 Mg Tablet PO 5 mg Q12HR ANGELA Administration Artificial Tears 1 drop 12/26/24 12:38 12/26/24 13:32 Artificial Tears Ophth Soln 15 Ml Bottle EACH EYE 1 drop QID PRN Administration Dry Eye(s) Bumetanide 1 mg 12/26/24 17:00 Bumetanide Inj 1 Mg/4 Ml Vial IV PUSH BID ANGELA Calcitriol 0.25 mcg 12/18/24 17:45 12/25/24 16:57 Calcitriol 0.25 Mcg Capsule PO 0.25 mcg MoWeFr ANGELA Administration Docusate Sodium 100 mg 12/17/24 17:44 Docusate Sodium 100 Mg Capsule PO Q12H PRN Constipation Famotidine 20 mg 12/17/24 21:00 12/26/24 08:51 Famotidine 20 Mg Tablet PO 20 mg Q12HR ANGELA Administration Fluticasone Propionate 1 spray 12/17/24 17:44 Fluticasone Propionate 0.05% Na Spr 16 Gm Btl (*Bkc) NASAL DAILY PRN Congestion Gabapentin 300 mg 12/18/24 09:00 12/26/24 12:37 Gabapentin 300 Mg Capsule PO 300 mg TID [facility] Administration Hyoscyamine 0.125 mg 12/18/24 03:43 12/25/24 17:04 Hyoscyamine Sulfate 0.125 Mg Tablet PO 0.125 mg Q4H PRN Administration bladder spasms Levothyroxine Sodium 200 mcg 12/18/24 06:30 12/26/24 05:45 Levothyroxine Sodium 100 Mcg Tablet PO 200 mcg DAILY@0630 ANGELA Administration Loratadine 10 mg 12/18/24 09:00 12/26/24 08:50 Loratadine 10 Mg Tablet PO 10 mg DAILY ANGELA Administration Metolazone 2.5 mg 12/20/24 14:10 12/26/24 08:51 Metolazone 2.5 Mg Tablet PO 2.5 mg QAM ANGELA Administration Minoxidil 2.5 mg 12/18/24 09:00 12/26/24 08:50 Minoxidil 2.5 Mg Tablet PO 2.5 mg DAILY ANGELA Administration Multi-Ingred Cream/Lotion/Oil/Oint 1 applic 12/23/24 11:45 12/26/24 08:52 Eucerin Cream 120 Gm Jar TOPICAL 1 applic DAILY ANGELA Administration Oxybutynin Chloride 5 mg 12/21/24 11:31 12/26/24 08:54 Oxybutynin Chloride 5 Mg Tablet PO 5 mg TID PRN Administration spasm Polyethylene Glycol 17 gm 12/17/24 17:44 12/26/24 09:09 Polyethylene Glycol 3350 17 Gm Powd.Pack PO 17 gm DAILY PRN Administration Constipation Potassium Chloride 10 meq 12/18/24 09:00 12/26/24 08:51 Potassium Chloride 10 Meq Er Tablet PO 10 meq DAILY ANGELA Administration Spironolactone 25 mg 12/18/24 09:00 12/26/24 08:51 Spironolactone 25 Mg Tablet PO 25 mg DAILY ANGELA Administration Tamsulosin HCl 0.4 mg 12/18/24 09:00 12/26/24 08:51 Tamsulosin Hcl 0.4 Mg Capsule PO 0.4 mg QAM ANGELA Administration Radiology Results: ITS Impressions Venous Doppler Study 12/17/24 13:43 IMPRESSION: 1. No left leg DVT. Chest X-Ray 12/17/24 14:14 IMPRESSION: 1. Right pleural effusion with associated basilar atelectasis and/or airspace disease. Abdomen Ultrasound 12/21/24 17:12 Impression: 1. Limited study. 2. Mild hepatic steatosis versus hepatocellular disease. Mild splenomegaly. MRI suggested to further evaluate. Labs Labs: Laboratory Results - last 24 hr 12/26/24 04:47 WBC 7.5 RBC 3.87 L Hgb 10.1 L Hct 35.1 L MCV 90.7 MCH 26.1 MCHC 28.8 L RDW 15.1 H Plt Count 312 MPV 10.6 H Sodium 131 L Potassium 3.5 Chloride 87 L Carbon Dioxide > 40 H Anion Gap BUN 49 H Creatinine 1.80 H Estim Creat Clear Calc 48 Estimated GFR 37 L Glucose 96 Calcium 8.9 Magnesium 2.4 H Total Bilirubin 0.3 AST 22 ALT 11 Alkaline Phosphatase 65 Total Protein 5.7 L Albumin 3.1 L Lipase 102
[2024-12-26] MEDS: BUMETANIDE INJ 1 MG/4 ML VIAL IV PUSH (17:25)
[2024-12-27] VITALS (7 sets, daily range): BP systolic 107–117; BP diastolic 45–53; PULSE 49–82; RESP 16–18; TEMP 36.6–37.3; O2SAT 95–99
[2024-12-27 05:49] LABS: Anion Gap 4 mmol/L (4-12); Blood Urea Nitrogen 51 mg/dL (9-20); Calcium 8.8 mg/dL (8.4-10.2); Carbon Dioxide 39 mmol/L (22-30); Chloride 88 mmol/L (98-107); Estimated CRCL calculation 43 ml/min; Estimated Glomerular Filt Rate 33; Glucose 100 mg/dL (65-110); Potassium 4.1 mmol/L (3.4-5.0); Sodium 131 mmol/L (137-145)
[2024-12-27] MEDS: LEVOTHYROXINE SODIUM 100 MCG TABLET 200 MCG PO (06:29)
[2024-12-27] MEDS: EUCERIN CREAM 120 GM JAR 1 APPLIC TOPICAL (08:29)
[2024-12-27] MEDS: BUMETANIDE INJ 1 MG/4 ML VIAL IV PUSH (08:31)
[2024-12-27] MEDS: LORATADINE 10 MG TABLET PO (08:32)
[2024-12-27] MEDS: FAMOTIDINE 20 MG TABLET PO ×2 (08:32→20:28)
[2024-12-27] MEDS: TAMSULOSIN HCL 0.4 MG CAPSULE PO (08:32)
[2024-12-27] MEDS: APIXABAN 5 MG TABLET PO ×2 (08:32→20:28)
[2024-12-27] MEDS: GABAPENTIN 300 MG CAPSULE PO ×3 (08:32→16:39)
[2024-12-27] MEDS: POTASSIUM CHLORIDE 10 MEQ ER TABLET PO (08:32)
[2024-12-27] MEDS: SPIRONOLACTONE 25 MG TABLET PO (08:32)
[2024-12-27] MEDS: ACETAMINOPHEN 325 MG TABLET 650 MG PO ×3 (08:38→20:29)
--- NOTE | 2024-12-27 12:29 | PM.PNCARD ---
Progress Note: A&P Assessment and Plan (1) Venous stasis dermatitis of both lower extremities: Code(s): I87.2 - Venous insufficiency (chronic) (peripheral) Status: Acute (2) Atrial fibrillation: Qualifiers: Atrial fibrillation type: longstanding persistent Qualified Code(s): I48.11 - Longstanding persistent atrial fibrillation Code(s): I48.91 - Unspecified atrial fibrillation Status: Chronic (3) Acute on chronic diastolic heart failure: Code(s): I50.33 - Acute on chronic diastolic (congestive) heart failure Status: Acute (4) Bradycardia: Code(s): R00.1 - Bradycardia, unspecified Status: Acute Plan Diagnosis: Acute on chronic diastolic and right ventricular failure; echo showed normal LVEF of 65-70%, RV pressure and volume overload, mild MR, mild TR, mild pulmonary hypertension with PASP of 40 mm Hg Chronic atrial fibrillation-telemetry shows AFib with rates in the 70s Hypokalemia with potassium of 3.3 Hypertension-controlled PVD CKD with baseline creatinine 1.5-2 Plan: Beta-chuck was stopped due to bradycardia. Avoid any AV orquidea blocking agents. Telemetry now shows AFib with rates in the 70s Change Bumex to 1 mg p.o. b.i.d. Check daily weight, ins and outs, renal function Continue metolazone Continue spironolactone 25 mg daily DC Jardiance patient not tolerating Check and replace electrolytes to keep potassium greater than 4 and magnesium greater than 2 Continue apixaban for anticoagulation for atrial fibrillation Subjective Date/time seen: 12/27/24 12:29 Interval history: Patient seen for evaluation of CHF Feels overall better today with less dizziness and shortness of breath Telemetry atrial fibrillation heart rate 80s Review of Systems Review of Systems: All systems reviewed & are unremarkable except as noted in HPI and below Exam Narrative: General: Alert oriented x3, no acute distress Neck: Supple, JVD + Chest: Bilaterally clear to auscultation, no rales or rhonchi Cardiac: irreg irreg Extremities: Left lower extremity edema 1+. Rt BKA Neurologic: Alert and oriented x3, no focal neurological deficits Const: General: comfortable and no acute distress Other: Morbidly obese gentleman supine in bed watching television with CPAP in place HENMT: Mouth: Yes moist mucous membranes Eyes: Sclera: sclerae normal Neck: Neck: supple Other: Body habitus precludes assessment of JVD Resp: Effort & Inspection: normal respiratory effort Auscultation: clear to auscultation bilaterally Other: Breath sounds are distant given his body habitus but generally clear in both lung wolf Cardio: Rate: regular rate Rhythm: abnormal rhythm irregularly irregular GI: Auscultation: normal bowel sounds Skin: General skin exam: normal color Neuro: Other: Alert and oriented x3 Extrem: Other: Right lower extremity amputation, left lower extremity edema appears to be improving. LIBERTY wrapped up to the knee Objective Data Vital Signs Vital Signs: Vital Signs - 24 hr 12/26/24 16:00 12/26/24 16:00 12/26/24 20:00 Temperature 36.8 C Pulse Rate 74 72 73 Respiratory Rate 20 16 Blood Pressure 111/45 L Pulse Oximetry 98 99 Oxygen Delivery CPAP 12/26/24 20:00 12/26/24 21:00 12/26/24 21:18 Temperature 36.6 C Pulse Rate 79 73 Respiratory Rate 16 Blood Pressure 113/49 L Pulse Oximetry 99 Oxygen Delivery CPAP 12/27/24 00:00 12/27/24 01:50 12/27/24 04:00 Temperature Pulse Rate 78 71 Respiratory Rate Blood Pressure Pulse Oximetry Oxygen Delivery CPAP 12/27/24 08:00 12/27/24 08:00 Temperature Pulse Rate 77 77 Respiratory Rate 16 Blood Pressure Pulse Oximetry 99 Oxygen Delivery CPAP Intake/Output Intake/Output: Intake & Output 12/24/24 12/25/24 12/26/24 12/27/24 23:59 23:59 23:59 23:59 Intake Total 1813 3440 2960 540 Output Total 4300 4300 3600 1850 Balance -2487 -860 -640 -1310 Meds/Results Medications: Active Medications Generic Name Dose Route Start Last Admin Trade Name Freq PRN Reason Stop Dose Admin Acetaminophen 650 mg 12/20/24 13:36 12/27/24 08:38 Acetaminophen 325 Mg Tablet PO 650 mg Q4H PRN Administration fever or pain 1-3 Allopurinol 100 mg 12/18/24 09:00 12/27/24 08:32 Allopurinol 100 Mg Tablet PO 100 mg DAILY NAGELA Administration Apixaban 5 mg 12/17/24 21:00 12/27/24 08:32 Apixaban 5 Mg Tablet PO 5 mg Q12HR ANGELA Administration Artificial Tears 1 drop 12/26/24 12:38 12/26/24 13:32 Artificial Tears Ophth Soln 15 Ml Bottle EACH EYE 1 drop QID PRN Administration Dry Eye(s) Bumetanide 1 mg 12/26/24 17:00 12/27/24 08:31 Bumetanide Inj 1 Mg/4 Ml Vial IV PUSH 1 mg BID ANGELA Administration Calcitriol 0.25 mcg 12/18/24 17:45 12/25/24 16:57 Calcitriol 0.25 Mcg Capsule PO 0.25 mcg MoWeFr ANGELA Administration Docusate Sodium 100 mg 12/17/24 17:44 Docusate Sodium 100 Mg Capsule PO Q12H PRN Constipation Famotidine 20 mg 12/17/24 21:00 12/27/24 08:32 Famotidine 20 Mg Tablet PO 20 mg Q12HR ANGELA Administration Fluticasone Propionate 1 spray 12/17/24 17:44 Fluticasone Propionate 0.05% Na Spr 16 Gm Btl (*Bkc) NASAL DAILY PRN Congestion Gabapentin 300 mg 12/18/24 09:00 12/27/24 08:32 Gabapentin 300 Mg Capsule PO 300 mg TID ANGELA Administration Hyoscyamine 0.125 mg 12/18/24 03:43 12/25/24 17:04 Hyoscyamine Sulfate 0.125 Mg Tablet PO 0.125 mg Q4H PRN Administration bladder spasms Levothyroxine Sodium 200 mcg 12/18/24 06:30 12/27/24 06:29 Levothyroxine Sodium 100 Mcg Tablet PO 200 mcg DAILY@0630 ANGELA Administration Loratadine 10 mg 12/18/24 09:00 12/27/24 08:32 Loratadine 10 Mg Tablet PO 10 mg DAILY ANGELA Administration Metolazone 2.5 mg 12/20/24 14:10 12/27/24 08:32 Metolazone 2.5 Mg Tablet PO 2.5 mg QAM ANGELA Administration Minoxidil 2.5 mg 12/18/24 09:00 12/27/24 08:32 Minoxidil 2.5 Mg Tablet PO 2.5 mg DAILY ANGELA Administration Multi-Ingred Cream/Lotion/Oil/Oint 1 applic 12/23/24 11:45 12/27/24 08:29 Eucerin Cream 120 Gm Jar TOPICAL 1 applic DAILY ANGELA Administration Oxybutynin Chloride 5 mg 12/21/24 11:31 12/26/24 21:16 Oxybutynin Chloride 5 Mg Tablet PO 5 mg TID PRN Administration spasm Polyethylene Glycol 17 gm 12/17/24 17:44 12/27/24 11:28 Polyethylene Glycol 3350 17 Gm Powd.Pack PO 17 gm DAILY PRN Administration Constipation Potassium Chloride 10 meq 12/18/24 09:00 12/27/24 08:32 Potassium Chloride 10 Meq Er Tablet PO 10 meq DAILY ANGELA Administration Spironolactone 25 mg 12/18/24 09:00 12/27/24 08:32 Spironolactone 25 Mg Tablet PO 25 mg DAILY ANGELA Administration Tamsulosin HCl 0.4 mg 12/18/24 09:00 12/27/24 08:32 Tamsulosin Hcl 0.4 Mg Capsule PO 0.4 mg QAM ANGELA Administration Radiology Results: ITS Impressions Venous Doppler Study 12/17/24 13:43 IMPRESSION: 1. No left leg DVT. Chest X-Ray 12/17/24 14:14 IMPRESSION: 1. Right pleural effusion with associated basilar atelectasis and/or airspace disease. Abdomen Ultrasound 12/21/24 17:12 Impression: 1. Limited study. 2. Mild hepatic steatosis versus hepatocellular disease. Mild splenomegaly. MRI suggested to further evaluate. Labs Labs: Laboratory Results - last 24 hr 12/27/24 05:03 Sodium 131 L Potassium 4.1 Chloride 88 L Carbon Dioxide 39 H Anion Gap 4 BUN 51 H Creatinine 2.01 H Estim Creat Clear Calc 43 Estimated GFR 33 L Glucose 100 Calcium 8.8
--- NOTE | 2024-12-27 14:03 | PM.IMPN ---
Progress Note: A&P Assessment and Plan (1) CHF (congestive heart failure): Qualifiers: Heart failure chronicity: chronic Heart failure type: diastolic Qualified Code(s): I50.32 - Chronic diastolic (congestive) heart failure Code(s): I50.9 - Heart failure, unspecified Status: Chronic Assessment and Plan: Acute on chronic systolic diastolic CHF with probably a component of right sided failure BNP 1160. CXR showing right pleural effusion with associated basilar atelectasis and/or airspace disease. Echo EF 65-70%, abnormal diastolic function, RV severely enlarged with reduced function. Moderate bi-atrial enlargement. Mild pulm HTN (40mmHg) At home, patient on Bumex 1 mg t.i.d. but not taking as prescribed and patient also out of his spironolactone for past week. Bumex 2mg IV TID started. Metolazone and spironolactone resumed. Bumex decreased to to 2 mg IV BID on 12/24 Fluid balance -26L. Diuresis finally slowing down. Developing contraction alkalosis Compliance with medications was stressed. Empagliflozin stopped and patient feels much better with feeling less achy. Bumex decreased to 1mg IV Q12hr and now changed to oral Bumex but this is lower than his oral dose. Cr up to 2.0. Will discuss with Cardiology. (2) Hypokalemia: Code(s): E87.6 - Hypokalemia Status: Acute Assessment and Plan: Potassium normal now. Monitor potassium level and replace as needed. (3) Atrial fibrillation: Qualifiers: Atrial fibrillation type: longstanding persistent Qualified Code(s): I48.11 - Longstanding persistent atrial fibrillation Code(s): I48.91 - Unspecified atrial fibrillation Status: Chronic Assessment and Plan: Patient with pAFib Patient was on metoprolol for rate control but held due to bradycardia. Heart rate stable now Patient remains on Eliquis. Monitor on telemetry. Cardiology following. (4) Stage 3b chronic kidney disease: Code(s): N18.32 - Chronic kidney disease, stage 3b Status: Chronic Assessment and Plan: Patient with Stage IIIB chronic kidney disease. Baseline creatinine varies between 1.7-2.8. Currently now at 2.0 but still within his baseline. Tolerating diuresis. Continue to monitor. 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 Wound care following. PT/OT He is more compliant now that he is feeling better Encouraged patient to be out of bed. (6) Hypothyroidism: Qualifiers: Hypothyroidism type: acquired Qualified Code(s): E03.9 - Hypothyroidism, unspecified Code(s): E03.9 - Hypothyroidism, unspecified Status: Chronic Assessment and Plan: Patient with hypothyroidism. TSH mildly elevated at 8.6 but normal FT4. Continue Synthroid. Defer to his PCP for repeat testing once he is well (7) Essential (primary) hypertension: Code(s): I10 - Essential (primary) hypertension Status: Chronic Assessment and Plan: Patient's blood pressure was reviewed on 12/27 Blood pressure remains well controlled. Will continue to monitor (8) AMELIA (obstructive sleep apnea): Code(s): G47.33 - Obstructive sleep apnea (adult) (pediatric) Status: Chronic Assessment and Plan: AMELIA on CPAP Plan Bladder spasms with Miller in situ. On Levsin p.r.n. also added oxybutynin p.r.n. Miller out now. Abd pain - Abd US 12/21 showing mild hepatic steatosis vs hepatocellular disease and mild splenomegaly. MRI recommended. CT Abd without contrast September 2024 showing no acute hepatic findings. LFTs and lipase recently were normal. Defer to outpatient for further imaging of the liver unless LFTs become elevated here. Abd pain better. Follow DVT Prophylaxis: Kay Code Status: Full code Subjective Date/time seen: 12/27/24 14:03 Interval history: 74yo male with right BKA, lymphedema, iron deficiency anemia, PVD, gout, atrial fibrillation, AMELIA, CHF, hypothyroidism, HLD, and HTN presents here with shortness of breath and worsening edema. Feels much better. Slept ok. Sat at the side of the bed. SOB better. No CP. Exam Narrative: AF 97.8 113/49 82 16 99% bipap Gen - NARD resting quietly on BiPAP Chest -lungs clear anteriorly. CV - RRR S1/S2. Telemetry showing normal sinus rhythm and PVCs Abd -soft. Obese. Minimal tenderness noted Ext - Rt BKA. Trace left lower extremity edema. Neuro - Alert and appropriate Psych - Nml mood and affect. In good spirits Skin - Warm and dry. Right posterior BKA stump dressing in place. LE scale improved. Objective Data Vital Signs Vital Signs: Vital Signs - 24 hr 12/26/24 16:00 12/26/24 16:00 12/26/24 20:00 Temperature 98.2 F Pulse Rate 74 72 73 Respiratory Rate 20 16 Blood Pressure 111/45 L Pulse Oximetry 98 99 Oxygen Delivery CPAP 12/26/24 20:00 12/26/24 21:00 12/26/24 21:18 Temperature 97.8 F Pulse Rate 79 73 Respiratory Rate 16 Blood Pressure 113/49 L Pulse Oximetry 99 Oxygen Delivery CPAP 12/27/24 00:00 12/27/24 01:50 12/27/24 04:00 Temperature Pulse Rate 78 71 Respiratory Rate Blood Pressure Pulse Oximetry Oxygen Delivery CPAP 12/27/24 08:00 12/27/24 08:00 12/27/24 12:00 Temperature Pulse Rate 77 77 82 Respiratory Rate 16 Blood Pressure Pulse Oximetry 99 Oxygen Delivery CPAP Intake/Output Intake/Output: Intake & Output 12/24/24 12/25/24 12/26/24 12/27/24 23:59 23:59 23:59 23:59 Intake Total 1813 3440 2960 540 Output Total 4300 4300 3600 1850 [facility] -[phone] Meds/Results Medications: Active Medications Generic Name Dose Route Start Last Admin Trade Name Freq PRN Reason Stop Dose Admin Acetaminophen 650 mg 12/20/24 13:36 12/27/24 08:38 Acetaminophen 325 Mg Tablet PO 650 mg Q4H PRN Administration fever or pain 1-3 Allopurinol 100 mg 12/18/24 09:00 12/27/24 08:32 Allopurinol 100 Mg Tablet PO 100 mg DAILY ANGELA Administration Apixaban 5 mg 12/17/24 21:00 12/27/24 08:32 Apixaban 5 Mg Tablet PO 5 mg Q12HR ANGELA Administration Artificial Tears 1 drop 12/26/24 12:38 12/26/24 13:32 Artificial Tears Ophth Soln 15 Ml Bottle EACH EYE 1 drop QID PRN Administration Dry Eye(s) Bumetanide 1 mg 12/27/24 17:00 Bumetanide 1 Mg Tablet PO BID ANGELA Calcitriol 0.25 mcg 12/18/24 17:45 12/25/24 16:57 Calcitriol 0.25 Mcg Capsule PO 0.25 mcg MoWeFr ANGELA Administration Docusate Sodium 100 mg 12/17/24 17:44 Docusate Sodium 100 Mg Capsule PO Q12H PRN Constipation Famotidine 20 mg 12/17/24 21:00 12/27/24 08:32 Famotidine 20 Mg Tablet PO 20 mg Q12HR ANGELA Administration Fluticasone Propionate 1 spray 12/17/24 17:44 Fluticasone Propionate 0.05% Na Spr 16 Gm Btl (*Bkc) NASAL DAILY PRN Congestion Gabapentin 300 mg 12/18/24 09:00 12/27/24 13:16 Gabapentin 300 Mg Capsule PO 300 mg TID ANGELA Administration Hyoscyamine 0.125 mg 12/18/24 03:43 12/25/24 17:04 Hyoscyamine Sulfate 0.125 Mg Tablet PO 0.125 mg Q4H PRN Administration bladder spasms Levothyroxine Sodium 200 mcg 12/18/24 06:30 12/27/24 06:29 Levothyroxine Sodium 100 Mcg Tablet PO 200 mcg DAILY@0630 [facility] Administration Loratadine 10 mg 12/18/24 09:00 12/27/24 08:32 Loratadine 10 Mg Tablet PO 10 mg DAILY ANGELA Administration Metolazone 2.5 mg 12/20/24 14:10 12/27/24 08:32 Metolazone 2.5 Mg Tablet PO 2.5 mg QAM [facility] Administration Minoxidil 2.5 mg 12/18/24 09:00 12/27/24 08:32 Minoxidil 2.5 Mg Tablet PO 2.5 mg DAILY [facility] Administration Multi-Ingred Cream/Lotion/Oil/Oint 1 applic 12/23/24 11:45 12/27/24 08:29 Eucerin Cream 120 Gm Jar TOPICAL 1 applic DAILY ANGELA Administration Oxybutynin Chloride 5 mg 12/21/24 11:31 12/26/24 21:16 Oxybutynin Chloride 5 Mg Tablet PO 5 mg TID PRN Administration spasm Polyethylene Glycol 17 gm 12/17/24 17:44 12/27/24 11:28 Polyethylene Glycol 3350 17 Gm Powd.Pack PO 17 gm DAILY PRN Administration Constipation Potassium Chloride 10 meq 12/18/24 09:00 12/27/24 08:32 Potassium Chloride 10 Meq Er Tablet PO 10 meq DAILY ANGELA Administration Spironolactone 25 mg 12/18/24 09:00 12/27/24 08:32 Spironolactone 25 Mg Tablet PO 25 mg DAILY ANGELA Administration Tamsulosin HCl 0.4 mg 12/18/24 09:00 12/27/24 08:32 Tamsulosin Hcl 0.4 Mg Capsule PO 0.4 mg QAM ANGELA Administration Radiology Results: ITS Impressions Venous Doppler Study 12/17/24 13:43 IMPRESSION: 1. No left leg DVT. Chest X-Ray 12/17/24 14:14 IMPRESSION: 1. Right pleural effusion with associated basilar atelectasis and/or airspace disease. Abdomen Ultrasound 12/21/24 17:12 Impression: 1. Limited study. 2. Mild hepatic steatosis versus hepatocellular disease. Mild splenomegaly. MRI suggested to further evaluate. Labs Labs: Laboratory Results - last 24 hr 12/27/24 05:03 Sodium 131 L Potassium 4.1 Chloride 88 L Carbon Dioxide 39 H Anion Gap 4 BUN 51 H Creatinine 2.01 H Estim Creat Clear Calc 43 Estimated GFR 33 L Glucose 100 Calcium 8.8
[2024-12-27] MEDS: DOCUSATE SODIUM 100 MG CAPSULE PO (16:39)
[2024-12-27] MEDS: BUMETANIDE 1 MG TABLET PO (16:39)
[2024-12-28] VITALS (11 sets, daily range): BP systolic 106–123; BP diastolic 48–57; PULSE 66–87; RESP 16–22; TEMP 36.4–37; O2SAT 96–100
[2024-12-28 05:48] LABS: Anion Gap 4 mmol/L (4-12); Blood Urea Nitrogen 51 mg/dL (9-20); Calcium 8.7 mg/dL (8.4-10.2); Carbon Dioxide 39 mmol/L (22-30); Chloride 89 mmol/L (98-107); Estimated CRCL calculation 44 ml/min; Estimated Glomerular Filt Rate 34; Glucose 104 mg/dL (65-110); Potassium 4.0 mmol/L (3.4-5.0); Sodium 132 mmol/L (137-145)
[2024-12-28] MEDS: LEVOTHYROXINE SODIUM 100 MCG TABLET 200 MCG PO (06:12)
[2024-12-28] MEDS: BUMETANIDE 1 MG TABLET PO ×2 (09:27→17:22)
[2024-12-28] MEDS: GABAPENTIN 300 MG CAPSULE PO ×3 (09:27→17:22)
[2024-12-28] MEDS: POTASSIUM CHLORIDE 10 MEQ ER TABLET PO (09:27)
[2024-12-28] MEDS: LORATADINE 10 MG TABLET PO (09:27)
[2024-12-28] MEDS: TAMSULOSIN HCL 0.4 MG CAPSULE PO (09:27)
[2024-12-28] MEDS: SPIRONOLACTONE 25 MG TABLET PO (09:27)
[2024-12-28] MEDS: FAMOTIDINE 20 MG TABLET PO ×2 (09:28→21:32)
[2024-12-28] MEDS: APIXABAN 5 MG TABLET PO ×2 (09:28→21:32)
[2024-12-28] MEDS: ACETAMINOPHEN 325 MG TABLET 650 MG PO ×4 (09:31→21:32)
[2024-12-28] MEDS: EUCERIN CREAM 120 GM JAR 1 APPLIC TOPICAL (09:34)
--- NOTE | 2024-12-28 15:00 | PCOTNOTE ---
Patient states he has already performed PT services this date. Patient states he was able to sit himself up on the side of the bed and unable to complete transfers here due to not having his personal equipment and correct clothing for sliding board transfers. Patient offered paper scrub pants for transfer practice, Patient does not fit into them. Patient states his equipment is the only thing he can use. Patient declined OT services this date, requested to come back tomorrow for clothing practice when he is given his own clothing.
--- NOTE | 2024-12-28 15:52 | PM.IMPN ---
Progress Note: A&P Assessment and Plan (1) CHF (congestive heart failure): Qualifiers: Heart failure chronicity: chronic Heart failure type: diastolic Qualified Code(s): I50.32 - Chronic diastolic (congestive) heart failure Code(s): I50.9 - Heart failure, unspecified Status: Chronic Assessment and Plan: Acute on chronic systolic diastolic CHF with probably a component of right sided failure BNP 1160. CXR showing right pleural effusion with associated basilar atelectasis and/or airspace disease. Echo EF 65-70%, abnormal diastolic function, RV severely enlarged with reduced function. Moderate bi-atrial enlargement. Mild pulm HTN (40mmHg) At home, patient on Bumex 1 mg t.i.d. but not taking as prescribed and patient also out of his spironolactone for past week. Bumex 2mg IV TID started. Metolazone and spironolactone resumed. Bumex decreased to to 2 mg IV BID on 12/24 Fluid balance -25L. Diuresis finally slowing down. Developing contraction alkalosis Compliance with medications was stressed. Empagliflozin stopped and patient feels much better with feeling less achy. Bumex decreased to 1mg IV Q12hr then to 1 mg p.o. b.i.d.. Cr improved at 1.94. May need higher dose of Bumex at discharge. (2) Hypokalemia: Code(s): E87.6 - Hypokalemia Status: Acute Assessment and Plan: Potassium normal now. Monitor potassium level and replace as needed. (3) Atrial fibrillation: Qualifiers: Atrial fibrillation type: longstanding persistent Qualified Code(s): I48.11 - Longstanding persistent atrial fibrillation Code(s): I48.91 - Unspecified atrial fibrillation Status: Chronic Assessment and Plan: Patient with pAFib Patient was on metoprolol for rate control but held due to bradycardia. Heart rate stable now and remains mostly in sinus rhythm. Patient remains on Eliquis. Monitor on telemetry. Cardiology following. (4) Stage 3b chronic kidney disease: Code(s): N18.32 - Chronic kidney disease, stage 3b Status: Chronic Assessment and Plan: Patient with Stage IIIB chronic kidney disease. Baseline creatinine varies between 1.7-2.8. Cr 1.94 and still within his baseline. Tolerating diuresis. Continue to monitor. 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 Wound care following. PT/OT He is more compliant now that he is feeling better Encouraged patient to be out of bed. Placement being considered. (6) Hypothyroidism: Qualifiers: Hypothyroidism type: acquired Qualified Code(s): E03.9 - Hypothyroidism, unspecified Code(s): E03.9 - Hypothyroidism, unspecified Status: Chronic Assessment and Plan: Patient with hypothyroidism. TSH mildly elevated at 8.6 but normal FT4. Continue Synthroid. Defer to his PCP for repeat testing once he is well (7) Essential (primary) hypertension: Code(s): I10 - Essential (primary) hypertension Status: Chronic Assessment and Plan: Patient's blood pressure was reviewed on 12/28 Blood pressure remains well controlled. Will continue to monitor (8) AMELIA (obstructive sleep apnea): Code(s): G47.33 - Obstructive sleep apnea (adult) (pediatric) Status: Chronic Assessment and Plan: AMELIA on CPAP Plan Bladder spasms with Miller in situ. On Levsin p.r.n. also added oxybutynin p.r.n. Miller out now. Abd pain - Abd US 12/21 showing mild hepatic steatosis vs hepatocellular disease and mild splenomegaly. MRI recommended. CT Abd without contrast September 2024 showing no acute hepatic findings. LFTs and lipase recently were normal. Defer to outpatient for further imaging of the liver unless LFTs become elevated here. Abd pain better. Follow DVT Prophylaxis: Eliquis Code Status: Full code Subjective Date/time seen: 12/28/24 15:52 Interval history: 74yo male with right BKA, lymphedema, iron deficiency anemia, PVD, gout, atrial fibrillation, AMELIA, CHF, hypothyroidism, HLD, and HTN presents here with shortness of breath and worsening edema. Slept okay. Voiding well. No chest pain. No shortness of breath. Was able to sit at the side of the bed. Does still have dyspnea on exertion. Exam Narrative: AF 98.3 121/57 82 22 97% bipap Gen - NARD Chest -this thing clear breath sounds CV - RRR S1/S2. Telemetry showing normal sinus rhythm and PVCs Abd -soft. Obese. Minimal tenderness noted Ext - Rt BKA. Trace left lower extremity edema. Neuro - Alert and appropriate Psych - Nml mood and affect. In good spirits Skin - Warm and dry. Bilateral LE scale improved. Objective Data Vital Signs Vital Signs: Vital Signs - 24 hr 12/27/24 16:00 12/27/24 20:00 12/27/24 20:17 Temperature 99.1 F Pulse Rate 82 81 Respiratory Rate 18 Blood Pressure 107/45 L Pulse Oximetry 98 Oxygen Delivery CPAP 12/27/24 22:06 12/28/24 00:00 12/28/24 02:00 Temperature Pulse Rate 74 Respiratory Rate Blood Pressure Pulse Oximetry Oxygen Delivery CPAP CPAP 12/28/24 04:00 12/28/24 05:03 12/28/24 09:25 Temperature 98.6 F 97.8 F Pulse Rate 74 71 87 Respiratory Rate 20 16 Blood Pressure 113/52 L 123/48 L Pulse Oximetry 100 96 Oxygen Delivery 12/28/24 09:27 12/28/24 09:27 12/28/24 12:00 Temperature Pulse Rate 87 76 80 Respiratory Rate 16 Blood Pressure Pulse Oximetry 96 Oxygen Delivery CPAP 12/28/24 13:38 Temperature 98.3 F Pulse Rate 82 Respiratory Rate 22 H Blood Pressure 121/57 L Pulse Oximetry 97 Oxygen Delivery Intake/Output Intake/Output: Intake & Output 12/25/24 12/26/24 12/27/24 12/28/24 23:59 23:59 23:59 23:59 Intake Total 3440 2960 3540 900 Output Total 4300 3600 3450 1800 Balance -860 -640 90 -900 Meds/Results Medications: Active Medications Generic Name Dose Route Start Last Admin Trade Name Freq PRN Reason Stop Dose Admin Acetaminophen 650 mg 12/20/24 13:36 12/28/24 13:17 Acetaminophen 325 Mg Tablet PO 650 mg Q4H PRN Administration fever or pain 1-3 Allopurinol 100 mg 12/18/24 09:00 12/28/24 09:28 Allopurinol 100 Mg Tablet PO 100 mg DAILY ANGELA Administration Apixaban 5 mg 12/17/24 21:00 12/28/24 09:28 Apixaban 5 Mg Tablet PO 5 mg Q12HR ANGELA Administration Artificial Tears 1 drop 12/26/24 12:38 12/26/24 13:32 Artificial Tears Ophth Soln 15 Ml Bottle EACH EYE 1 drop QID PRN Administration Dry Eye(s) Bumetanide 1 mg 12/27/24 17:00 12/28/24 09:27 Bumetanide 1 Mg Tablet PO 1 mg BID ANGELA Administration Calcitriol 0.25 mcg 12/18/24 17:45 12/25/24 16:57 Calcitriol 0.25 Mcg Capsule PO 0.25 mcg MoWeFr ANGELA Administration Docusate Sodium 100 mg 12/17/24 17:44 12/27/24 16:39 Docusate Sodium 100 Mg Capsule PO 100 mg Q12H PRN Administration Constipation Famotidine 20 mg 12/17/24 21:00 12/28/24 09:28 Famotidine 20 Mg Tablet PO 20 mg Q12HR ANGELA Administration Fluticasone Propionate 1 spray 12/17/24 17:44 Fluticasone Propionate 0.05% Na Spr 16 Gm Btl (*Bkc) NASAL DAILY PRN Congestion Gabapentin 300 mg 12/18/24 09:00 12/28/24 12:45 Gabapentin 300 Mg Capsule PO 300 mg TID ANGELA Administration Hyoscyamine 0.125 mg 12/18/24 03:43 12/25/24 17:04 Hyoscyamine Sulfate 0.125 Mg Tablet PO 0.125 mg Q4H PRN Administration bladder spasms Levothyroxine Sodium 200 mcg 12/18/24 06:30 12/28/24 06:12 Levothyroxine Sodium 100 Mcg Tablet PO 200 mcg DAILY@0630 ANGELA Administration Loratadine 10 mg 12/18/24 09:00 12/28/24 09:27 Loratadine 10 Mg Tablet PO 10 mg DAILY ANGELA Administration Metolazone 2.5 mg 12/20/24 14:10 12/28/24 09:27 Metolazone 2.5 Mg Tablet PO 2.5 mg QAM ANGELA Administration Minoxidil 2.5 mg 12/18/24 09:00 12/28/24 09:27 Minoxidil 2.5 Mg Tablet PO 2.5 mg DAILY ANGELA Administration Multi-Ingred Cream/Lotion/Oil/Oint 1 applic 12/23/24 11:45 12/28/24 09:34 Eucerin Cream 120 Gm Jar TOPICAL 1 applic DAILY ANGELA Administration Oxybutynin Chloride 5 mg 12/21/24 11:31 12/26/24 21:16 Oxybutynin Chloride 5 Mg Tablet PO 5 mg TID PRN Administration spasm Polyethylene Glycol 17 gm 12/17/24 17:44 12/27/24 11:28 Polyethylene Glycol 3350 17 Gm Powd.Pack PO 17 gm DAILY PRN Administration Constipation Potassium Chloride 10 meq 12/18/24 09:00 12/28/24 09:27 Potassium Chloride 10 Meq Er Tablet PO 10 meq DAILY ANGELA Administration Spironolactone 25 mg 12/18/24 09:00 12/28/24 09:27 Spironolactone 25 Mg Tablet PO 25 mg DAILY ANGELA Administration Tamsulosin HCl 0.4 mg 12/18/24 09:00 12/28/24 09:27 Tamsulosin Hcl 0.4 Mg Capsule PO 0.4 mg QAM ANGELA Administration Radiology Results: ITS Impressions Venous Doppler Study 12/17/24 13:43 IMPRESSION: 1. No left leg DVT. Chest X-Ray 12/17/24 14:14 IMPRESSION: 1. Right pleural effusion with associated basilar atelectasis and/or airspace disease. Abdomen Ultrasound 12/21/24 17:12 Impression: 1. Limited study. 2. Mild hepatic steatosis versus hepatocellular disease. Mild splenomegaly. MRI suggested to further evaluate. Labs Labs: Laboratory Results - last 24 hr 12/28/24 05:02 Sodium 132 L Potassium 4.0 Chloride 89 L Carbon Dioxide 39 H Anion Gap 4 BUN 51 H Creatinine 1.94 H Estim Creat Clear Calc 44 Estimated GFR 34 L Glucose 104 Calcium 8.7
[2024-12-29] VITALS (7 sets, daily range): BP systolic 106; BP diastolic 47–57; PULSE 70–86; RESP 15–17; TEMP 36.4–37.2; O2SAT 99
[2024-12-29 05:26] LABS: Anion Gap 5 mmol/L (4-12); Blood Urea Nitrogen 51 mg/dL (9-20); Calcium 8.8 mg/dL (8.4-10.2); Carbon Dioxide 36 mmol/L (22-30); Chloride 90 mmol/L (98-107); Estimated CRCL calculation 44 ml/min; Estimated Glomerular Filt Rate 34; Glucose 104 mg/dL (65-110); Potassium 3.5 mmol/L (3.4-5.0); Sodium 131 mmol/L (137-145)
[2024-12-29] MEDS: LEVOTHYROXINE SODIUM 100 MCG TABLET 200 MCG PO (05:34)
[2024-12-29] MEDS: ACETAMINOPHEN 325 MG TABLET 650 MG PO ×2 (05:37→09:59)
--- NOTE | 2024-12-29 08:31 | PM.PNCARD ---
Progress Note: A&P Assessment and Plan (1) Venous stasis dermatitis of both lower extremities: Code(s): I87.2 - Venous insufficiency (chronic) (peripheral) Status: Acute (2) Atrial fibrillation: Qualifiers: Atrial fibrillation type: longstanding persistent Qualified Code(s): I48.11 - Longstanding persistent atrial fibrillation Code(s): I48.91 - Unspecified atrial fibrillation Status: Chronic (3) Acute on chronic diastolic heart failure: Code(s): I50.33 - Acute on chronic diastolic (congestive) heart failure Status: Acute (4) Bradycardia: Code(s): R00.1 - Bradycardia, unspecified Status: Acute Plan Diagnosis: 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 Avoid any AV orquidea blocking agents. Telemetry now shows AFib with rates in the 70s Now on p.o. Bumex. On discharge would recommend Bumex 1.5mg b.i.d. and metolazone every other day Continue spironolactone 25 mg daily Did not tolerate jardiance BMP in one week Continue apixaban for anticoagulation for atrial fibrillation Will arrange for close follow up in our office. Subjective Date/time seen: 12/29/24 08:31 Interval history: Reason for encounter: Acute on chronic diastolic and right heart failure, bradycardia and pauses Relevant history: 74-year-old male with history of diastolic dysfunction, chronic atrial fibrillation, chronic right ventricular dysfunction with recurrent heart failure hospitalizations, h/o right [id number] amputation for infection was admitted with symptoms of shortness of breath and lower extremity swelling. Cardiology was consulted for management of acute on chronic diastolic and right ventricular failure and bradycardia, pauses noted on telemetry during this admission. He has a right bundle branch block and leftward axis pattern with a wide QRS on EKG which is chronic. Interval history: Patient states he is still short of breath and his legs are swollen. No chest pain. Telemetry shows atrial fibrillation with rates in the 70s. Date of service 12/22/2024: Reports some improvement in his swelling. Still has shortness of breath and wears his CPAP throughout the day. No chest pain. 12/23/24: Patient is sititng up in bed. Breathing feels better this am and he is not requiring CPAP at this time. No reports of any chest pain or pressure. No dizziness or palpitaitons. Feels LE edema is improved. Date of service 12/24/2024: Feeling better today. Still making good urine. Edema is improving Date of service 12/25/2024: Complaining of headache but otherwise feels good. No chest pain. Still develops shortness of breath when CPAP removed for more than 1 hr. Date of service 12/29/2024: Feels good. Requiring CPAP less often during the day. No shortness of breath at rest. Swelling significantly improved. Review of Systems Review of Systems: All systems reviewed & are unremarkable except as noted in HPI and below Constitutional: Constitutional: Reports fatigue and Reports lethargy Eyes: Eyes: Reports no additional eye complaints ENT: Reports system reviewed and no additional complaints, except as documented Cardiovascular: Cardiovascular: Reports as per HPI and Reports dyspnea Respiratory: Respiratory: Reports dyspnea Gastrointestinal: Gastrointestinal: Reports no additional gastrointestinal complaints Musculoskeletal: Musculoskeletal: Reports back pain Integumentary/Breasts: Skin/Breast: Reports system reviewed and no additional complaints, except as docu Neurologic: Reports system reviewed and no additional complaints, except as documented Endocrine: Endocrine: Reports no additional endocrine complaints and Reports fatigue Hematologic/Lymphatic: Hematologic/Lymphatic: Reports no additional hematologic/lymphatic complaints Allergic/Immunologic: Allergic/Immunologic: Reports no additional allergic/immunologic complaints Exam Const: General: comfortable and no acute distress Other: Morbidly obese gentleman supine in bed watching television with CPAP in place HENMT: Mouth: Yes moist mucous membranes Eyes: Sclera: sclerae normal Neck: Neck: supple Other: Body habitus precludes assessment of JVD Resp: Effort & Inspection: normal respiratory effort Auscultation: clear to auscultation bilaterally and diminished lung sounds Cardio: Rate: regular rate Rhythm: abnormal rhythm irregularly irregular GI: Auscultation: normal bowel sounds Skin: General skin exam: normal color Neuro: Other: Alert and oriented x3 Extrem: Other: Right lower extremity amputation, trace left lower extremity edema. Objective Data Vital Signs Vital Signs: Vital Signs - 24 hr 12/28/24 09:25 12/28/24 09:27 12/28/24 09:27 Temperature 36.6 C Pulse Rate 87 87 76 Respiratory Rate 16 16 Blood Pressure 123/48 L Pulse Oximetry 96 96 Oxygen Delivery CPAP Oxygen Flow Rate 12/28/24 12:00 12/28/24 13:38 12/28/24 16:00 Temperature 36.8 C Pulse Rate 80 82 82 Respiratory Rate 22 H Blood Pressure 121/57 L Pulse Oximetry 97 Oxygen Delivery Oxygen Flow Rate 12/28/24 20:00 12/28/24 20:00 12/28/24 20:58 Temperature 36.4 C L Pulse Rate 80 81 Respiratory Rate 18 Blood Pressure 106/53 L Pulse Oximetry 99 Oxygen Delivery CPAP Oxygen Flow Rate 12/28/24 22:15 12/28/24 22:15 12/29/24 00:00 Temperature Pulse Rate 66 77 Respiratory Rate Blood Pressure Pulse Oximetry 97 Oxygen Delivery CPAP CPAP Oxygen Flow Rate 4 12/29/24 03:25 12/29/24 04:00 12/29/24 05:10 Temperature 37.2 C Pulse Rate 72 70 Respiratory Rate 17 Blood Pressure 106/57 L Pulse Oximetry 99 Oxygen Delivery CPAP Oxygen Flow Rate Intake/Output Intake/Output: Intake & Output 12/26/24 12/27/24 12/28/24 12/29/24 23:59 23:59 23:59 23:59 Intake Total 2960 3540 1990 300 Output Total 3600 3450 2950 800 Balance -640 90 960 -500 Meds/Results Medications: Active Medications Generic Name Dose Route Start Last Admin Trade Name Freq PRN Reason Stop Dose Admin Acetaminophen 650 mg 12/20/24 13:36 12/29/24 05:37 Acetaminophen 325 Mg Tablet PO 650 mg Q4H PRN Administration fever or pain 1-3 Allopurinol 100 mg 12/18/24 09:00 12/28/24 09:28 Allopurinol 100 Mg Tablet PO 100 mg DAILY ANGELA Administration Apixaban 5 mg 12/17/24 21:00 12/28/24 21:32 Apixaban 5 Mg Tablet PO 5 mg Q12HR ANGELA Administration Artificial Tears 1 drop 12/26/24 12:38 12/26/24 13:32 Artificial Tears Ophth Soln 15 Ml Bottle EACH EYE 1 drop QID PRN Administration Dry Eye(s) Bumetanide 1 mg 12/27/24 17:00 12/28/24 17:22 Bumetanide 1 Mg Tablet PO 1 mg BID ANGELA Administration Calcitriol 0.25 mcg 12/18/24 17:45 12/28/24 17:22 Calcitriol 0.25 Mcg Capsule PO 0.25 mcg MoWeFr ANGELA Administration Docusate Sodium 100 mg 12/17/24 17:44 12/27/24 16:39 Docusate Sodium 100 Mg Capsule PO 100 mg Q12H PRN Administration Constipation Famotidine 20 mg 12/17/24 21:00 12/28/24 21:32 Famotidine 20 Mg Tablet PO 20 mg Q12HR ANGELA Administration Fluticasone Propionate 1 spray 12/17/24 17:44 Fluticasone Propionate 0.05% Na Spr 16 Gm Btl (*Bkc) NASAL DAILY PRN Congestion Gabapentin 300 mg 12/18/24 09:00 12/28/24 17:22 Gabapentin 300 Mg Capsule PO 300 mg TID ANGELA Administration Hyoscyamine 0.125 mg 12/18/24 03:43 12/25/24 17:04 Hyoscyamine Sulfate 0.125 Mg Tablet PO 0.125 mg Q4H PRN Administration bladder spasms Levothyroxine Sodium 200 mcg 12/18/24 06:30 12/29/24 05:34 Levothyroxine Sodium 100 Mcg Tablet PO 200 mcg DAILY@0630 ANGELA Administration Loratadine 10 mg 12/18/24 09:00 12/28/24 09:27 Loratadine 10 Mg Tablet PO 10 mg DAILY ANGELA Administration Metolazone 2.5 mg 12/20/24 14:10 12/28/24 09:27 Metolazone 2.5 Mg Tablet PO 2.5 mg QAM ANGELA Administration Minoxidil 2.5 mg 12/18/24 09:00 12/28/24 09:27 Minoxidil 2.5 Mg Tablet PO 2.5 mg DAILY ANGELA Administration Multi-Ingred Cream/Lotion/Oil/Oint 1 applic 12/23/24 11:45 12/28/24 09:34 Eucerin Cream 120 Gm Jar TOPICAL 1 applic DAILY ANGELA Administration Oxybutynin Chloride 5 mg 12/21/24 11:31 12/26/24 21:16 Oxybutynin Chloride 5 Mg Tablet PO 5 mg TID PRN Administration spasm Polyethylene Glycol 17 gm 12/17/24 17:44 12/27/24 11:28 Polyethylene Glycol 3350 17 Gm Powd.Pack PO 17 gm DAILY PRN Administration Constipation Potassium Chloride 10 meq 12/18/24 09:00 12/28/24 09:27 Potassium Chloride 10 Meq Er Tablet PO 10 meq DAILY ANGELA Administration Spironolactone 25 mg 12/18/24 09:00 12/28/24 09:27 Spironolactone 25 Mg Tablet PO 25 mg DAILY ANGELA Administration Tamsulosin HCl 0.4 mg 12/18/24 09:00 12/28/24 09:27 Tamsulosin Hcl 0.4 Mg Capsule PO 0.4 mg QAM ANGELA Administration Radiology Results: ITS Impressions Venous Doppler Study 12/17/24 13:43 IMPRESSION: 1. No left leg DVT. Chest X-Ray 12/17/24 14:14 IMPRESSION: 1. Right pleural effusion with associated basilar atelectasis and/or airspace disease. Abdomen Ultrasound 12/21/24 17:12 Impression: 1. Limited study. 2. Mild hepatic steatosis versus hepatocellular disease. Mild splenomegaly. MRI suggested to further evaluate. Labs Labs: Laboratory Results - last 24 hr 12/29/24 04:43 Sodium 131 L Potassium 3.5 Chloride 90 L Carbon Dioxide 36 H Anion Gap 5 BUN 51 H Creatinine 1.92 H Estim Creat Clear Calc 44 Estimated GFR 34 L Glucose 104 Calcium 8.8 Quality VTE Prophylaxis VTE prophylaxis: pharmacologic ordered
[2024-12-29] MEDS: SPIRONOLACTONE 25 MG TABLET PO (09:58)
[2024-12-29] MEDS: APIXABAN 5 MG TABLET PO (09:58)
[2024-12-29] MEDS: TAMSULOSIN HCL 0.4 MG CAPSULE PO (09:58)
[2024-12-29] MEDS: GABAPENTIN 300 MG CAPSULE PO ×2 (09:59→13:11)
[2024-12-29] MEDS: FAMOTIDINE 20 MG TABLET PO (09:59)
[2024-12-29] MEDS: LORATADINE 10 MG TABLET PO (09:59)
[2024-12-29] MEDS: BUMETANIDE 1 MG TABLET PO (09:59)
[2024-12-29] MEDS: POTASSIUM CHLORIDE 10 MEQ ER TABLET PO (09:59)
--- NOTE | 2024-12-29 11:08 | P.DS_ITS ---
DS: Admitting Diagnosis Discharge Date 12/29/24 Admitting Diagnosis Shortness of breath DS: Discharge Diagnosis Discharge Diagnosis (1) CHF (congestive heart failure): Qualifiers: Heart failure chronicity: chronic Heart failure type: diastolic Qualified Code(s): I50.32 - Chronic diastolic (congestive) heart failure Code(s): I50.9 - Heart failure, unspecified Status: Chronic (2) Hypokalemia: Code(s): E87.6 - Hypokalemia Status: Acute (3) Atrial fibrillation: Qualifiers: Atrial fibrillation type: longstanding persistent Qualified Code(s): I48.11 - Longstanding persistent atrial fibrillation Code(s): I48.91 - Unspecified atrial fibrillation Status: Chronic (4) Stage 3b chronic kidney disease: Code(s): N18.32 - Chronic kidney disease, stage 3b Status: Chronic (5) Hx of right BKA: Onset Date: ~07/2024 Code(s): Z89.511 - Acquired absence of right leg below knee Status: Chronic (6) Hypothyroidism: Qualifiers: Hypothyroidism type: acquired Qualified Code(s): E03.9 - Hypothyroidism, unspecified Code(s): E03.9 - Hypothyroidism, unspecified Status: Chronic (7) Essential (primary) hypertension: Code(s): I10 - Essential (primary) hypertension Status: Chronic (8) AMELIA (obstructive sleep apnea): Code(s): G47.33 - Obstructive sleep apnea (adult) (pediatric) Status: Chronic DS: Summary Hospital Course Reason for hospitalization: 74yo male with right BKA, lymphedema, iron deficiency anemia, PVD, gout, atrial fibrillation, AMELIA, CHF, hypothyroidism, HLD, and HTN presents here with shortness of breath and worsening edema. Please see H&P for details. Hospital Course: Patient presents with SOB and increasing edema and found to have acute on chronic systolic diastolic CHF with probably a component of right sided failure. BNP 1160. CXR showing right pleural effusion with associated basilar atelectasis and/or airspace disease. Cardiology following. Echo EF 65-70%, abnormal diastolic function, RV severely enlarged with reduced function. Moderate bi-atrial enlargement. Mild pulm HTN (40mmHg). At home, patient was on Bumex 1 mg t.i.d. but not taking as prescribed and patient also out of his spironolactone for past week. Bumex 2mg IV TID started. Metolazone and spironolactone resumed. Patient with pAFib. Patient was on metoprolol for rate control but held due to bradycardia. Heart rate stable now and remains mostly in sinus rhythm. Patient remained on Eliquis. Patient with Stage IIIB chronic kidney disease. Baseline creatinine varies between 1.7-2.8. He tolerated diuresis. Cr fluctuated but overall remained within his baseline. 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 He was not wanting to participate until toward the end of his hospitalization. Wound care following. Patient with hypothyroidism. TSH mildly elevated at 8.6 but normal FT4. We continued Synthroid. Will defer to his PCP for repeat testing once he is well. Patient was compliant wit his CPAP. Patient with abdominal pain. Abdominal US 12/21 showing mild hepatic steatosis vs hepatocellular disease and mild splenomegaly. MRI recommended. CT Abd without contrast September 2024 showing no acute hepatic findings. LFTs and lipase recently were normal. Decided to defer to outpatient for further imaging of the liver. Empagliflozin was added but he was feeling unwell and achiness with abdominal pain. This was stopped and patient feels much better. Abd pain better as well. Cr remained stable and was 1.92 at discharge. Bumex decreased then transitioned to oral Bumex. Fluid balance -25L. Compliance with medications was stressed. He feels much better. He declined SNF placement. He overall did well and was able to be discharged home on 12/29/24. Discharge instructions discussed including side effects of medications. All questions answered. Status at Discharge Cognitive/behavioral status at discharge: stable Time Spent with Patient Time attestation: Total time spent providing and/or coordinating discharge services: 35 minutes Time spent: Greater than 30 minutes Exam Narrative: AF 98.9 106/57 86 17 99% cpap Gen - NARD Chest -clear bilaterally. nml RR CV - RRR S1/S2. Telemetry showing normal sinus rhythm and PVCs with occasional AFib Abd -soft. Obese. NT/ND Ext - Rt BKA. No left lower extremity edema. Neuro - Alert and appropriate Psych - Nml mood and affect. Skin - Warm and dry. Bilateral LE scale much improved. DS: Data Data Completed and Pending Labs on day of discharge: Labs from last 24 hours 12/29/24 04:43 Sodium 131 L Potassium 3.5 Chloride 90 L Carbon Dioxide 36 H Anion Gap 5 BUN 51 H Creatinine 1.92 H Estim Creat Clear Calc 44 Estimated GFR 34 L Glucose 104 Calcium 8.8 Discharge Plan Discharge Attending physician on discharge: Panda Kc Consulting providers: Anirudh Wise Discharging Clinician: Panda Kc Anticipated Discharge Date/Time: 12/29/24 11:28 Patient Disposition: Home with Home Health Service Activity: as tolerated Diet: heart healthy Discharge Instructions: Per Care Coordination, patient to discharge with [facility] ([phone]) for retirement services. Please fax discharge instructions and medication sheets to [phone]. Continue using CPAP at night and with naps. Okay to use as needed for comfort. Continue using Eucerin (or equivalent) cream to both lower extremity intact skin Take precautions to avoid falls. Check daily morning weights after voiding if possible. Call your doctor if you gain more than 3 lb in 2 days or 5 lb in 1 week. Contact your doctor or call 911 and come to the Emergency Room if you have any type of trauma, lightheadedness with sittiing or other worrisome symptoms. Avoid NSAIDs (ibuprofen, naproxen, Aleve). Tylenol is safe to take. Follow-up with your primary care provider in 1-2 weeks. Please call for appointment. Please speak to your doctor about further imaging of your liver as we discussed Follow-up with Cardiology in 3 weeks. Thank you for using [facility] for your health care needs. Patient Instructions: Antibiotic Form Patient Language: [place] Stand Alone Forms: General Discharge Information Follow-up/Referrals: Jennifer Hammond APN-C [Advanced Practice Nurse, Cardiology] - 3 Weeks Kip Malcolm MD [Primary Care Provider, Family Practice] - Call for Appointment Discharge Medications: [place] Creme Cream 1 applic topical DAILY Qty: 113 0RF Rx Instructions: to both lower extremity intact skin Continued fluticasone propionate [Flonase Allergy Relief] 50 mcg/actuation spray,suspension 1 spray intranasal DAILY PRN (Reason: Congestion) Rx Instructions: administer into each nostril loratadine [Claritin] 10 mg tablet 10 mg PO DAILY Eliquis 5 mg tablet 5 mg PO Q12HR Qty: 180 1RF Patient Comments: calcitriol 0.25 mcg capsule 0.25 mcg PO 3XW Qty: 36 3RF Rx Instructions: take on Saturday, Saturday, Fridays minoxidil 2.5 mg tablet 2.5 mg PO DAILY famotidine 20 mg tablet 20 mg PO BID Qty: 180 3RF tamsulosin 0.4 mg capsule 0.4 mg PO QAM Qty: 90 3RF allopurinol 100 mg tablet 100 mg PO DAILY Qty: 10 0RF potassium chloride 10 mEq capsule, extended release 10 meq PO DAILY levothyroxine 200 mcg tablet 200 mcg PO DAILY acetaminophen 500 mg capsule 500 mg PO Q6H PRN (Reason: fever or pain) polyethylene glycol 3350 [Miralax] 17 gram/dose powder 17 g PO DAILY PRN (Reason: Constipation) metolazone 2.5 mg tablet 2.5 mg PO .COMPLEX Rx Instructions: 2.5 mg orally 4 times per week M,W,F,Sat; gabapentin 300 mg capsule 300 mg PO TID Qty: 270 1RF docusate sodium 100 mg capsule 100 mg PO Q12H PRN (Reason: constipation) Qty: 60 3RF spironolactone 25 mg tablet 25 mg PO DAILY Qty: 30 1RF Changed bumetanide 1 mg tablet 1.5 mg PO BID Qty: 90 0RF Discontinued metoprolol tartrate 50 mg tablet 50 mg PO Q12HR Qty: 180 1RF acetazolamide 250 mg tablet 250 mg PO DAILY Other Ambulatory Orders: Basic Metabolic Panel (Routine) Timeframe: 1 Week Location: Determined by Patient Ordered By: Panda Kc Date of admission: 12/17/24 18:00 Primary Care Provider: Kip Malcolm Admitting Provider: Kathleen Manriquez Attending physician on admission: Kathleen Manriquez Condition: Stable Hospitalist MIPS Heart Failure (Exclusion) Patient has history of Heart Transplant or Left Ventricular Assistive Device?: No IF YES, STOP HERE Heart Failure (Qualifier) Patient has current or prior documentation of LVEF less than or equal to 40%, or mod/servere depressed LVSF?: No IF NO, STOP HERE
[2024-12-29] MEDS: EUCERIN CREAM 120 GM JAR 1 APPLIC TOPICAL (11:25)
[2024-12-29] MEDS: PROMETHAZINE HCL 12.5 MG TABLET PO (12:48)
--- NOTE | 2024-12-29 14:23 | PC.NURSE ---
On 12/29/24, the student, [Mj Menjivar], provided care and completed [facility] documentation on this patient. I have reviewed the student's documentation and agree with the findings.
--- NOTE | 2024-12-30 12:20 | PC.NURSE ---
Spoke with patient after discharge. Patient was confused if he was suppose to continue Eliquis because he did not see it on his discharge instructions. When I looked up discharge instructions the Eliquis is on there as well as in Jennifer Hammond's note to continue. Informed patient of this and he understands. He will continue taking his Eliquis as precribed.
== END 2024-12-29 14:35 | disposition home health service (06) | DRG 291 ==
LOC: ANHED 12:53 → ANHIMU 16:07 → ANH2MED 12-18 18:15
PROVIDERS: Internal Medicine; Student in an Organized Health Care Education/Training Program; Admitting Provider Internal Medicine; Emergency Provider Emergency Medicine; PCP Family Medicine; Visit Provider Internal Medicine
DX: I13.0 Hypertensive heart and chronic kidney disease with heart failure and stage 1 through stage 4 chronic kidney disease, or unspecified chronic kidney disease (principal); I50.33 Acute on chronic diastolic (congestive) heart failure; I48.20 Chronic atrial fibrillation, unspecified; I50.813 Acute on chronic right heart failure; I73.9 Peripheral vascular disease, unspecified; I89.0 Lymphedema, not elsewhere classified; I87.2 Venous insufficiency (chronic) (peripheral); N18.32 Chronic kidney disease, stage 3b; D50.9 Iron deficiency anemia, unspecified; E87.6 Hypokalemia; E03.9 Hypothyroidism, unspecified; E78.5 Hyperlipidemia, unspecified; K21.9 Gastro-esophageal reflux disease without esophagitis; L71.8 Other rosacea; N32.89 Other specified disorders of bladder; R00.1 Bradycardia, unspecified; R60.1 Generalized edema; M54.50 Low back pain, unspecified; M10.9 Gout, unspecified; G89.29 Other chronic pain; G62.9 Polyneuropathy, unspecified; G47.33 Obstructive sleep apnea (adult) (pediatric); Z79.01 Long term (current) use of anticoagulants; Z89.511 Acquired absence of right leg below knee
CPT/HCPCS: 36415; 71045; 76700; 80048; 80053; 80069; 82948; 83690; 83735; 83880; 84132; 84439; 84443; 84480; 85025; 85027; 85610; 85730; 93005; 93971; 96365; 97162; 97166; 97530; 97535; 99285; A9270; C8929; G0378; J1939; J3480; P9047; Q9957

== ENCOUNTER 2025-02-03 13:19 | Outpatient (CLI) | payer MEDICARE, SELFPAY ==
[2025-02-03 14:34] LABS: Albumin Level 3.5 g/dL (3.5-5.1); Anion Gap 6 mmol/L (4-12); Blood Urea Nitrogen 58 mg/dL (9-20); Calcium 8.4 mg/dL (8.4-10.2); Carbon Dioxide 34 mmol/L (22-30); Chloride 89 mmol/L (98-107); Estimated Glomerular Filt Rate 35; Glucose 106 mg/dL (65-110); Potassium 3.5 mmol/L (3.4-5.0); Sodium 129 mmol/L (137-145)
[2025-02-03 14:44] LABS: Parathyroid Intact 74.0 pg/mL (14.5-75.2)
[2025-02-03 16:08] LABS: Total Protein Urine Random 13 mg/dL; Ur Ttl Prot Creatinine Ratio 0.19 mg/mg (0-0.20)
== END 2025-02-03 13:20 | disposition home or self-care (01) ==
PROVIDERS: PCP Family Medicine; Visit Provider Internal Medicine Nephrology
DX: I12.9 Hypertensive chronic kidney disease with stage 1 through stage 4 chronic kidney disease, or unspecified chronic kidney disease (principal); N18.32 Chronic kidney disease, stage 3b; E55.9 Vitamin D deficiency, unspecified; N25.81 Secondary hyperparathyroidism of renal origin
CPT/HCPCS: 36415; 80069; 82306; 82570; 83970; 84156

== ENCOUNTER 2025-02-18 14:16 | Outpatient (CLI) | payer MEDICARE, SELFPAY ==
[2025-02-18 18:05] LABS: Iron 22 ug/dL (49-181)
[2025-02-18 18:08] LABS: Hematocrit 35.5 % (42.0-52.0); Hemoglobin 9.9 g/dL (14.0-18.0); Immature Granulocyte Percent A 0.5 % (0-0.5); Lymphocytes Absolute Auto 0.51 K/mm3 (0.9-3.2); Mean Corpuscular HGB Conc 27.9 g/dl (32-36); Mean Corpuscular Hemoglobin 24.8 pg (26-34); Mean Corpuscular Volume 89.0 fl (80-100); Nucleated Red Blood Cells Absolute Auto 0.000 K/mm3 (0.0-0.012); Nucleated Red Blood Cells Perc 0.0 % (0.0-0.2); Platelet Count Result 338 k/mm3 (150-375); Red Blood Count 3.99 M/mm3 (4.6-6.20); White Blood Count 8.3 K/mm3 (4.5-10.0)
[2025-02-18 18:16] LABS: Percent Iron Saturation 5 % (20-50)
[2025-02-18 18:20] LABS: Hypochromasia 1+; Ovalocytes 1+; Schistocytes None Seen
[2025-02-18 18:25] LABS: Alanine Aminotransferase 7 U/L (6-50); Albumin Level 3.2 g/dL (3.5-5.1); Alkaline Phosphatase 47 U/L (38-126); Anion Gap 2 mmol/L (4-12); Aspartate Amino Transferase 25 U/L (17-59); Bilirubin,Total 0.4 mg/dL (0.2-1.3); Blood Urea Nitrogen 60 mg/dL (9-20); Calcium 8.3 mg/dL (8.4-10.2); Carbon Dioxide 35 mmol/L (22-30); Chloride 94 mmol/L (98-107); Cholesterol 163 mg/dL (0-200); Estimated Glomerular Filt Rate 31; Glucose 95 mg/dL (65-110); HDL Direct 30 mg/dL; Potassium 4.5 mmol/L (3.4-5.0); Sodium 131 mmol/L (137-145); Total Protein 5.5 g/dL (6.3-8.2); Triglycerides 296 mg/dL (<150)
[2025-02-18 18:29] LABS: Hemoglobin A1C 5.1 % (<5.7)
[2025-02-18 18:45] LABS: Thyroid Stimulating Hormone Reflex 3.450 uIU/mL (0.465-4.68)
[2025-02-18 18:49] LABS: Ferritin 10.70 ng/mL (11.1-264)
[2025-02-18 19:31] LABS: Vitamin B12 169.0 pg/mL (239-931)
== END 2025-02-18 14:17 | disposition home or self-care (01) ==
LOC: ANHGOSHLAB 14:18
PROVIDERS: PCP Family Medicine; Visit Provider Family Medicine
DX: I87.2 Venous insufficiency (chronic) (peripheral) (principal); Z00.00 Encounter for general adult medical examination without abnormal findings; R73.9 Hyperglycemia, unspecified; E03.9 Hypothyroidism, unspecified; D63.1 Anemia in chronic kidney disease; E78.5 Hyperlipidemia, unspecified; I50.9 Heart failure, unspecified; I12.9 Hypertensive chronic kidney disease with stage 1 through stage 4 chronic kidney disease, or unspecified chronic kidney disease; N18.30 Chronic kidney disease, stage 3 unspecified
CPT/HCPCS: 36415; 80053; 80061; 82607; 82728; 82746; 83036; 83540; 83550; 84443; 85025

== ENCOUNTER 2025-03-18 12:36 | Inpatient (IN) | payer MEDICARE, SELFPAY ==
[2025-03-18] VITALS (12 sets, daily range): BP systolic 103–148; BP diastolic 30–71; PULSE 71–84; RESP 16–19; TEMP 36.6; O2SAT 95–100
--- NOTE | ~2025-03-18 | XR_ITS ---
Examination: XR chest 1V portable Clinical History: shortness of breath Comparison: 12/17/2024 Technique: Portable AP Findings: Heart size normal. Mild bibasilar atelectasis. No acute bony abnormality. IMPRESSION: 1. No acute cardiopulmonary findings given portable technique. Consider PA and lateral films with deep inspiration. Reviewed, dictated and finalized at location R. CONDUCTOR ASSEMBLER
--- NOTE | 2025-03-18 13:02 | ECG_ITS ---
Test Date: 2025-03-18 14:01:37 Measurements Intervals [place] Rate: 77 P: 231 [place]: 112 QRS: 261 QRSD: 173 T: 95 QT: 414 QTc: 469 Interpretive Statements ATRIAL FLUTTER/TACHYCARDIA WITH OCCASIONAL VENTRICULAR PREMATURE COMPLEXES RIGHT AXIS DEVIATION RIGHT BUNDLE BRANCH BLOCK BASELINE ARTIFACT- V2 ABNORMAL ECG Compared to ECG 12/19/2024 10:37:22 HEART RATE IS INCREASED Ventricular premature complex(es) now present Electronically Signed On 03-18-2025 14:15:05 [employer] by Reid Hubbard D.O.
--- NOTE | 2025-03-18 13:11 | ED_ITS ---
HPI - Weakness General Chief complaint: Weakness Stated complaint: weakness Time Seen by Provider: 03/18/25 13:02 Source: patient Mode of arrival: wheelchair Limitations: no limitations History of Present Illness HPI Narrative: This is a 75-year-old male with history of CHF, CKD, peripheral edema, of AMELIA, hyperlipidemia, AFib on Eliquis, hypertension, status post right BKA who presents to the ED for weakness and shortness of breath. Patient states that over the past several days, he has been having worsening symptoms and has noticed significant swelling especially to his scrotum. He states this normal happens with his CHF. Denies chest pain at this time. Denies fevers, chills. Related Data Home Medications ?Medication ?Instructions ?Recorded ?Confirmed ?Last Taken ?Type minoxidil 2.5 mg tablet 2.5 mg PO DAILY 08/04/2412/17/24 09:00 History acetaminophen 500 mg capsule 500 mg PO Q6H PRN fever o r pain 09/15/24 02/18/25 12/16/24 History fluticasone propionate 50 1 spray intranasal DAILY PRN 10/21/24 02/18/25 Unknown History mcg/actuation nasal Congestion spray,suspension (Flonase Allergy Relief) loratadine 10 mg tablet (Claritin) 10 mg PO DAILY fernanda rgy symptoms 10/21/24 02/18/25 12/17/24 09:00 History polyethylene glycol 3350 17 17 g PO DAILY PRN Constipa tion 10/21/24 02/18/25 12/16/24 09:00 History gram/dose oral powder (Miralax) metolazone 2.5 mg tablet 2.5 mg PO .COMPLEX 12/17/24 02/18/25 12/14/24 History bumetanide 1 mg tablet 1 mg PO TID 02/18/25 5 Unknown History docusate sodium 100 mg capsule 100 mg PO Q12H constipa tion 02/18/25 02/18/25 Unknown History potassium chloride 10 mEq 20 meq PO TID 02/18/2502/18 Unknown History capsule,extended release Allergies Allergy/AdvReac Type Severity Reaction Status Date / Time Sulfa (Sulfonamide Allergy Mild Rash Verified 02/18/25 13:13 Antibiotics) Penicillins Allergy Unknown SWELLING Verified 02/18/25 13:13 codeine AdvReac Mild N/V Verified 02/18/25 13:13 hydrocodone AdvReac Mild N/V Verified 02/18/25 13:13 oxycodone (From OxyContin) AdvReac Mild Nausea Verified 02/18/25 13:13 tramadol AdvReac Mild Nausea Verified 02/18/25 13:13 Review of Systems 2 Review of Systems: All systems reviewed & are unremarkable except as noted in HPI and below PMFSH Past Medical History Medical History Lymphedema of lower extremity Iron deficiency anemia Right foot infection s/p BKA(08/23) Venous stasis ulcer of right lower extremity Lymphedema due to chronic inflammation Constipation Stercoral ulcer of rectum Fecal impaction Proctitis Hyponatremia Peripheral vascular disease Morbid obesity with body mass index (BMI) of 40.0 or higher Neuropathic pain Gout Sepsis Chronic acquired lymphedema Chronic anemia Obstructive sleep apnea Atrial fibrillation Lymphedema of both lower extremities Environmental allergies Ocular rosacea Rosacea Chronic low back pain Chronic venous insufficiency GERD without esophagitis Chronic congestive heart failure Echocardiogram in May 2021 was technically difficult and showed normal LV systolic function with an EF of 60 to 65%, severely enlarged RV chamber with moderate to severely reduced RV systolic function, severe biatrial enlargement, and moderate pulmonary hypertension. Dyslipidemia Essential (primary) hypertension Peripheral polyneuropathy Hypothyroidism Surgical History Surgical History Hx of right BKA (~07/2024) S/P BKA (below knee amputation) 08/25/24 Right below-knee amputation Dr. Malone History of carpal tunnel release History of thoracic surgery Pericardial effusion s/p pericardial window thought secondary to minoxidil, in 2010 at [facility]. H/O eye surgery (~2005) [id number] [employer] History of foot surgery Left Foot History of cholecystectomy (2008) History of rotator cuff surgery Bilateral. History of discectomy (2012) Family History Family History Father Cardiovascular disease Grandparent Cancer Mother COPD (chronic obstructive pulmonary disease) Social History Social History Social History: Surrogate medical decision maker: Shyla Hurst, daughter. Code status: Full code. Caffeine-decalf coffee, diet soda Smoking packs per day: 2 Smoking cigarettes per day: 40.0 Years smoked: 20 Smoking pack-years: 40.00 Smoking status: Former smoker Second hand tobacco smoke exposure: No Additional smoking assessment comments: 1978 Alcohol intake: never Alcohol use details: One beer daily. Substance use: never Substance use type: does not use Lack of Transportation: No Lack of Food: Never True Current Housing: I Have Housing Concerned About Future Housing: No Difficulty Paying Gas/Electric Bills: No Difficulty Paying for Meds: No Currently Unemployed: No Education: Associate Degree Difficulty w/ Childcare or Family Care: No Living arrangements: alone Additional living arrangements comments: Lives in own home in [place]. Uses a motorized scooter and transfers with slide board. Occupation/Education: retired Additional occupation/education comments: Retired. 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 Spiritual care concerns: No Exam 2 Narrative: APPEARANCE: No acute distress, nontoxic, resting in bed EYES: EOMI HEENT: Normocephalic, atraumatic, OMM RESPIRATORY: No respiratory distress diminished breath sounds throughout worse in the bases. CARDIOVASCULAR: Regular rate and rhythm without murmurs rubs or gallops. ABDOMINAL: Morbidly obese. Soft, nontender, nondistended, no rebound or guarding MUSCULOSKELETAl: Moves all extremities. 3+ pitting edema to the bilateral lower extremities up to the abdomen, status post right BKA with leaking serous fluid. NEURO: Awake and alert. Following commands, speech normal, no focal deficits SKIN:: Warm, dry. No rashes lesions or abrasions PSYCHIATRIC: Normal affect/mood, Course Vital Signs Vital signs: Vital Signs Temperature 97.9 F 03/18/25 12:57 Pulse Rate 71 03/18/25 12:57 Respiratory Rate 16 03/18/25 12:57 Blood Pressure 109/46 L 03/18/25 12:57 Pulse Oximetry 95 03/18/25 12:57 Temperature 97.9 F 03/18/25 12:57 Pulse Rate 82 03/18/25 15:03 Respiratory Rate 17 03/18/25 15:03 Blood Pressure 135/62 03/18/25 15:03 Pulse Oximetry 98 03/18/25 15:03 Oxygen Delivery Room Air 03/18/25 13:23 [facility] MDM Narrative Medical decision making narrative: 75-year-old male Presenting for weakness and shortness of breath. On initial evaluation patient was in no acute distress afebrile, hemodynamic stable. Differentials include but are not limited to: ACS, CHF Exacerbation, COPD exacerbation, PE, PNA, PTX, bronchitis, viral syndrome Notable exam findings: Diminished breath sounds at the bilateral bases, anasarca, status post right BKA with leakage of serous fluid from the well- healed incision. I personally reviewed the patient's lab result. Notable lab findings: Mild leukocytosis at 10.4, anemia to 10.8. On hyponatremic at 1:31 a.m., JENA with creatinine at 2.8 for from baseline around 2. BNP elevated at 15,000. Troponin elevated at 0.057. UA with leukocyte esterase and WBCs without bacteria, no urinary symptoms. I personally reviewed the patient's images and interpret as follows: Chest x- ray showed cardiomegaly with pulmonary vascular congestion, no focal consolidations I personally reviewed the patient's EKGs: Atrial flutter rate of 77, right axis deviation, right bundle-branch block, no acute ST or T-wave changes Suspect patient's elevated troponin is due to his CHF. He likely has anasarca at this point due to severe CHF. He was started on 40 mg Lasix IV. I did discuss the case with the hospitalist and informed them that the patient has been on Bumex previously and may require a Bumex drip eventually. Hospitalist expressed understanding of this and will admit the patient at this time. Differential Diagnosis Differential Diagnosis: ACS, CHF Exacerbation, COPD exacerbation, PE, PNA, PTX, bronchitis, viral syndrome Lab Data 03/18/25 13:50 03/18/25 13:50 Labs: Lab Results 03/18/25 03/18/25 03/18/25 Range/Units 13:50 13:50 13:50 WBC 10.4 H (4.5-10.0) K/mm3 RBC 4.33 L (4.6-6.20) M/mm3 Hgb 10.8 L (14.0-18.0) g/dL Hct 37.5 L (42.0-52.0) % MCV 86.6 (80-100) fl MCH 24.9 L (26-34) pg MCHC 28.8 L (32-36) g/dl RDW 16.1 H (11.5-14.5) % Plt Count 388 H (150-375) k/mm3 MPV 9.9 (7.4-10.4) fl Immature Gran % (Auto) 0.7 H (0-0.5) % Neut % (Auto) 87.4 H (45.5-73.1) % Lymph % (Auto) 3.5 L (18.3-44.2) % [place] % (Auto) 6.1 (2.6-8.5) % Eos % (Auto) 1.7 (0-4.4) % Baso % (Auto) 0.6 (0.2-1.2) % Lymph # (Auto) 0.37 L (0.9-3.2) K/mm3 [place] # (Auto) 0.6 (0.1-0.6) K/mm3 Eos # (Auto) 0.2 (0-0.3) K/mm3 Baso # (Auto) 0.1 (0.0-0.1) K/mm3 Abs Immat Gran (auto) 0.07 H (0.00-0.031) K/mm3 Absolute Neuts (auto) 9.1 H (1.3-6.7) K/mm3 Absolute Nucleated RBC 0.000 (0.0-0.012) K/mm3 Band Neutrophils % Not Reportable Nucleated RBC % 0.0 (0.0-0.2) % Platelet Estimate Adequate (Adequate) Polychromasia Occasional Hypochromasia Occasional Anisocytosis 1+ Ovalocytes 1+ Schistocytes None seen Sodium 131 L (137-145) mmol/L Potassium 3.5 (3.4-5.0) mmol/L Chloride 93 L (98-107) mmol/L Carbon Dioxide 31 H (22-30) mmol/L Anion Gap 7 (4-12) mmol/L BUN 66 H (9-20) mg/dL Creatinine 2.84 H (0.7-1.3) mg/dL Estim Creat Clear Calc 33 ml/min Estimated GFR 22 L (59 - ) Glucose 94 (65-110) mg/dL Calcium 8.2 L (8.4-10.2) mg/dL Total Bilirubin 0.5 (0.2-1.3) mg/dL AST 22 (17-59) U/L ALT 9 (6-50) U/L Alkaline Phosphatase 58 (38-126) U/L Troponin I 0.057 H* Pending Pending (0.000-0.034) ng/mL NT-Pro-B Natriuret Pep 19175 H (19.9-100) pg/mL Total Protein 5.7 L (6.3-8.2) g/dL Albumin 3.2 L (3.5-5.1) g/dL Urine Color (Yellow) Urine Appearance (Clear) Urine pH (5.0-9.0) Ur Specific [place] (1.001-1.035) Urine Protein (Negative) mg/dL Urine Glucose (UA) (Negative) mg/dL Urine Ketones (Negative) mg/dL Ur Blood (Man) (Negative) Urine Nitrate (Negative) Urine Bilirubin (Negative) Urine Urobilinogen (<2.0) mg/dL Leukocyte Esterase Rfl (Negative) KEITH/UL Urine RBC (0-2) /hpf Urine WBC (0-3) /hpf Ur Squamous Epith Cells (Few) /hpf Urine Bacteria /hpf Urine Casts // Range/Units 15:02 WBC (4.5-10.0) K/mm3 RBC (4.6-6.20) M/mm3 Hgb (14.0-18.0) g/dL Hct (42.0-52.0) % MCV (80-100) fl MCH (26-34) pg MCHC (32-36) g/dl RDW (11.5-14.5) % Plt Count (150-375) k/mm3 MPV (7.4-10.4) fl Immature Gran % (Auto) (0-0.5) % Neut % (Auto) (45.5-73.1) % Lymph % (Auto) (18.3-44.2) % [place] % (Auto) (2.6-8.5) % Eos % (Auto) (0-4.4) % Baso % (Auto) (0.2-1.2) % Lymph # (Auto) (0.9-3.2) K/mm3 [place] # (Auto) (0.1-0.6) K/mm3 Eos # (Auto) (0-0.3) K/mm3 Baso # (Auto) (0.0-0.1) K/mm3 Abs Immat Gran (auto) (0.00-0.031) K/mm3 Absolute Neuts (auto) (1.3-6.7) K/mm3 Absolute Nucleated RBC (0.0-0.012) K/mm3 Band Neutrophils % Nucleated RBC % (0.0-0.2) % Platelet Estimate (Adequate) Polychromasia Hypochromasia Anisocytosis Ovalocytes Schistocytes Sodium (137-145) mmol/L Potassium (3.4-5.0) mmol/L Chloride (98-107) mmol/L Carbon Dioxide (22-30) mmol/L Anion Gap (4-12) mmol/L BUN (9-20) mg/dL Creatinine (0.7-1.3) mg/dL Estim Creat Clear Calc ml/min Estimated GFR (59 - ) Glucose (65-110) mg/dL Calcium (8.4-10.2) mg/dL Total Bilirubin (0.2-1.3) mg/dL AST (17-59) U/L ALT (6-50) U/L Alkaline Phosphatase (38-126) U/L Troponin I (0.000-0.034) ng/mL NT-Pro-B Natriuret Pep (19.9-100) pg/mL Total Protein (6.3-8.2) g/dL Albumin (3.5-5.1) g/dL Urine Color Yellow (Yellow) Urine Appearance Clear (Clear) Urine pH 7.0 (5.0-9.0) Ur Specific [place] 1.011 (1.001-1.035) Urine Protein Negative (Negative) mg/dL Urine Glucose (UA) Negative (Negative) mg/dL Urine Ketones Negative (Negative) mg/dL Ur Blood (Man) Non-hemolyzed trace (Negative) Urine Nitrate Negative (Negative) Urine Bilirubin Negative (Negative) Urine Urobilinogen 1.0 (<2.0) mg/dL Leukocyte Esterase Rfl 3+ H (Negative) KEITH/UL Urine RBC 3-5 H (0-2) /hpf Urine WBC >100 H (0-3) /hpf Ur Squamous Epith Cells None seen (Few) /hpf Urine Bacteria None seen /hpf Urine Casts 0-2 Imaging Data Radiologist's impression: ITS Impressions Chest X-Ray 03/18/25 13:29 IMPRESSION: 1. No acute cardiopulmonary findings given portable technique. Consider PA and lateral films with deep inspiration. Discharge Plan Discharge Clinical Impression: CHF exacerbation, Acute non-ST elevation myocardial infarction (NSTEMI), Acute hyponatremia, JENA (acute kidney injury) Patient Disposition: Still a Patient Condition: Stable Patient Language: Arabic Prescriptions: No Action fluticasone propionate [Flonase Allergy Relief] 50 mcg/actuation spray,suspension 1 spray intranasal DAILY PRN (Reason: Congestion) Rx Instructions: administer into each nostril loratadine [Claritin] 10 mg tablet 10 mg PO DAILY Eliquis 5 mg tablet 5 mg PO Q12HR Qty: 180 1RF Patient Comments: calcitriol 0.25 mcg capsule 0.25 mcg PO 3XW Qty: 36 3RF Rx Instructions: take on Saturday, Saturday, Fridays minoxidil 2.5 mg tablet 2.5 mg PO DAILY famotidine 20 mg tablet 20 mg PO BID Qty: 180 3RF tamsulosin 0.4 mg capsule 0.4 mg PO QAM Qty: 90 3RF allopurinol 100 mg tablet 100 mg PO DAILY Qty: 10 0RF bumetanide 1 mg tablet 1 mg PO TID docusate sodium 100 mg capsule 100 mg PO Q12H potassium chloride 10 mEq capsule, extended release 20 meq PO TID acetaminophen 500 mg capsule 500 mg PO Q6H PRN (Reason: fever or pain) polyethylene glycol 3350 [Miralax] 17 gram/dose powder 17 g PO DAILY PRN (Reason: Constipation) metolazone 2.5 mg tablet 2.5 mg PO .COMPLEX Rx Instructions: 2.5 mg orally 4 times per week M,W,F,Sat; Minerin Creme Cream 1 applic topical DAILY Qty: 113 0RF Rx Instructions: to both lower extremity intact skin spironolactone 25 mg tablet 25 mg PO DAILY Qty: 30 1RF levothyroxine 200 mcg tablet 200 mcg PO DAILY Qty: 90 1RF mecobalamin (vitamin B12) 1,000 mcg tablet,disintegrating 1,000 mcg sublingual DAILY Qty: 90 1RF Rx Instructions: place tablet under tongue and allow to dissolve for at least 30 secs before swallowing cholecalciferol (vitamin D3) 1,250 mcg (50,000 unit) capsule 1,250 mcg PO WEEKLY Qty: 14 1RF gabapentin 300 mg capsule 300 mg PO TID Qty: 270 1RF ferrous sulfate 325 mg (65 mg iron) tablet 325 mg PO BID Qty: 180 1RF Follow-up/Referrals: Kip Malcolm MD [Primary Care Provider, Family Practice]
--- OUTSIDE RECORDS SUMMARY | 2025-03-18 13:29 | XMS_ITS | Clinical Summary ---
Author Organization [facility] Address [address] [address] Phone Care Team Providers Care Icer Hand Name Role Phone Alicia Malcolm MD Primary Care Provider Allergies Active Allergy Reactions Criticality Noted Date Comments Codeine Nausea Only Low Other reaction(s): Vomiting Hydrocodone Nausea Only,Other (s ee comments) Low Penicillins Hives,Rash Medium Sulfa Antibiotics Rash Medium Medications omeprazole (PRILOSEC) [address] capsule 1 tab qday 2 Active ergocalciferol (VITAMIN D-2) 52707 units capsule 1 tab/cap every week for [...] Risk Completed 01/12/2020, 01/21/2019 Insurance MEDICARE [facility]RO[employer] [facility] MEDICARE SUPPLEMENT Care Teams Icer Hand Relationship Specialty Start Date End Date Alicia Malcolm MD [address] [place] [address] PCP - General Internal Medicine 08/05/18
--- OUTSIDE RECORDS SUMMARY | 2025-03-18 13:29 | XMS_ITS | Encounter Summary ---
Author Organization [facility] Address [address], [place] [address] Phone Care Team Providers Care Online Merchandising Specialist Name Role Phone Alicia Malcolm MD Primary Care Provider Reason for Visit * Reason Comments Med Refill Encounter Details Date Type Department Care Team (Late st Contact Info) Description 02/23/2019 Refill [facility] Nephrology and Hypertension [address] [place] [address], [address] [place], [place] [id number] Chester Longo MD [address] [facility], [address] [place] [address] Social History Tobacco Use Types Packs/Day Years [...] on filedocumented in this encounter Care Teams Online Merchandising Specialist Relationship Specialty Start Date End Date Alicia Malcolm MD [address] [place] [address] PCP - General Internal Medicine 08/05/18 documented as of this encounter
--- OUTSIDE RECORDS SUMMARY | 2025-03-18 13:29 | XMS_ITS | Encounter Summary ---
Author Organization [facility] Address [address], [place] [address] Phone Care Team Providers Care Hand Picker Name Role Phone Alicia Malcolm MD Primary Care Provider Encounter Details Date Type Department Care Team (Late st Contact Info) Description 09/17/2019 Telephone [facility] Nephrology and Hypertension [address] [facility], [address] [facility] [place] [address] Jacquie Al MA Social History Tobacco Use [...] on filedocumented in this encounter Care Teams Hand Picker Relationship Specialty Start Date End Date Alicia Malcolm MD [address] [place] [address] PCP - General Internal Medicine 08/05/18 documented as of this encounter
--- OUTSIDE RECORDS SUMMARY | 2025-03-18 13:29 | XMS_ITS | Encounter Summary ---
Author Organization [facility] Address [address] [address] Phone Care Team Providers Care Asset Management Coordinator Name Role Phone Alicia Malcolm MD Primary Care Provider Reason for Visit * Reason Comments Med Refill Encounter Details Date Type Department Care Team (Late st Contact Info) Description 05/25/2019 Refill [facility] Nephrology and Hypertension [address] [place] [address], [address] [place] [address] Chester Longo MD [address] [facility], [address] [place] [address] Social History Tobacco Use Types Packs/Day Years [...] on filedocumented in this encounter Care Teams Asset Management Coordinator Relationship Specialty Start Date End Date Alicia Malcolm MD [address] [place] [address] PCP - General Internal Medicine 08/05/18 documented as of this encounter
--- OUTSIDE RECORDS SUMMARY | 2025-03-18 13:29 | XMS_ITS | Clinical Summary ---
Author Organization [facility] [address] Address [address] [place] [address] Care Team Providers Care Clinical Trials Specialist Name Role Phone Alicia Malcolm MD [...] TIMES DAILY 810 tablet 3 3 Active polyethylene glycol (MIRALAX) 17 gram/dose bulk [...] MOUTH DAILY 90 tablet 3 5 Active furosemide (LASIX) 40 mg tablet Take 1 tablet (40 mg total) by mouth daily Active metoprolol tartrate (LOPRESSOR) 50 mg immediate release tablet Take 1 tablet (50 mg total) by mouth every 12 (twelve) hours 180 tablet 3 5 Active spironolactone (ALDACTONE) 25 mg tablet Take 1 tablet (25 mg total) by mouth daily 90 tablet 1 5 12/26/19 26 Active Eliquis 5 mg tablet TAKE 1 TABLET BY MOUTH TWICE DAILY 180 tablet 3 5 Active Minerin Creme cream APPLY TOPICALLY DAILY TO BOTH LOWER EXTREMITY INTACT SKIN 5 Active Active Problems Problem Noted Date Diagnosed Date Hospital discharge follow-up 02/17/2025 Longstanding persistent atrial fibrillation 07/2024 PVD (peripheral vascular disease) 08/12/2024 Assessment & [...] 04/06/2023 Assessment & Plan (02/05/2024 11:38 AM PRESSURE WASHER): Venous insufficiency noted to both lower extremities [...] Morbid obesity with BMI of 40.0-44.9, adult 080 09/2017 Hypertensive heart and kidney disease 03/23/2015 [...] Encounters Date Type Department Care Team Description 02/03/2025 11:30 AM PRESSURE WASHER Office Visit [facility] Cardiology [address] [place] [phone] Jennifer Hammond, SARTHAK Chronic heart failure with preserved ejection fraction (Primary Dx); AMELIA treated with BiPAP; Benign hypertension; Longstanding persistent atrial fibrillation (HCC); Hospital discharge follow-up 01/06/2025 Orders Only [facility] Cardiology [address] [place] [phone] Jennifer Hammond, SARTHAK 12/28/2024 Orders Only [facility] Cardiology [address] [place] [address] [place] [phone] Jennifer Hammond, SARTHAK 12/24/2024 Orders Only [facility] Cardiology [address] [place] [phone] Nava Sands NP 12/23/2024 Orders Only [facility] Cardiology [address] [place] [address] [place] [phone] Jennifer Hammond, SARTHAK 12/22/2024 Orders Only [facility] Cardiology [address] [place] [address] [place] [phone] Liliana Kirk MD 12/21/2024 Orders Only [facility] Cardiology [address] [place] [address] [place] [phone] Anirudh Wise MD from Last 3 Months Medical History Medical [...] on file Legal Sex Male 1:10 PM PRESSURE WASHER Gender Identity Not on file Sexual Orientation Not on file Last Filed Vital Signs Vital Sign Reading Time Taken Comments Blood Pressure 110/60 02/03/2025 11:39 AM PRESSURE WASHER Pulse 76 02/03/2025 11:39 AM PRESSURE WASHER Temperature 36.8 C (98.2 F) 12/25/2019 11:12 AM CDT Respiratory Rate 15 02/04/2020 11:41 AM PRESSURE WASHER Oxygen Saturation 92% 02/03/2025 11:39 AM PRESSURE WASHER Inhaled Oxygen Concentration - - Weight 148.3 kg (327 lb) 08/12/2024 10:43 AM CDT Height 185.4 cm (6' 1) 02/03/2025 11:39 AM PRESSURE WASHER Body Mass Index 43.14 08/12/2024 10:43 AM CDT Plan of Treatment Health Maintenance Due Date Last Done Comments Depression Screening 1950 Hepatitis C Screening 1950 DTaP/Tdap/Td Vaccine (1 - Tdap) 02/09/1960 Hepatitis B Screening 1967 Zoster Vaccine (1 of 2) 1999 Well Visit 65+ 2014 Fall Risk Assessment 02/03/2021 02/04/2020 Influenza Vaccine (#1) 2024 , 01/12/2020, 01/12/2020, Additional history exists Pneumococcal vaccine 65+ Completed 01/12/2020, 12/31 Abdominal Aortic Aneurysm (A AA) Screen Completed 07/28/2021 Procedures Procedure Name Priority Date/Time Associated Diagnosis Comments CARDIOLOGY DOCUMENT SCAN Routine 025 12:43 PM CDT CARDIOLOGY DOCUMENT SCAN Routine 025 10:09 AM CDT CARDIOLOGY DOCUMENT SCAN Routine 025 10:07 AM CDT CARDIOLOGY DOCUMENT SCAN Routine 12/25/2024 9:59 AM CDT CARDIOLOGY DOCUMENT SCAN Routine 12/24/2024 9:54 AM CDT CARDIOLOGY DOCUMENT SCAN Routine 12/24/2024 9:45 AM CDT CARDIOLOGY DOCUMENT SCAN Routine 025 10:36 AM CDT CARDIOLOGY DOCUMENT SCAN Routine 025 11:27 AM CDT CARDIOLOGY DOCUMENT SCAN Routine 025 10:43 AM CDT CARDIOLOGY DOCUMENT SCAN Routine 12/20/2024 4:32 PM CDT CARDIOLOGY DOCUMENT SCAN Routine 12/19/2024 4:31 PM CDT from Last 3 Months Results * Cardiology Document Scan (12/29/2024 12:43 PM CDT) Anatomical Region Laterality Modality Other Jennifer Hammond NP CV CARDIAC SERVICES PROCEDUR ES Final Result * Cardiology Document Scan (12/27/2024 10:09 AM CDT) Anatomical Region Laterality Modality Other Dung Winters MD CV CARDIAC SERVICES PROCEDU RES Final Result * Cardiology Document Scan (12/26/2024 10:07 AM CDT) Anatomical Region Laterality Modality Other Dung Winters MD CV CARDIAC SERVICES PROCEDU RES Final Result * Cardiology Document Scan (12/25/2024 9:59 AM CDT) Anatomical Region Laterality Modality Other Jennifer Hammond NP CV CARDIAC SERVICES PROCEDUR ES Final Result * Cardiology Document Scan (12/24/2024 9:54 AM CDT) Anatomical Region Laterality Modality Other Jennifer Hammond NP CV CARDIAC SERVICES PROCEDUR ES Final Result * Cardiology Document Scan (12/24/2024 9:45 AM CDT) Anatomical Region Laterality Modality Other Jennifer Hammond NP CV CARDIAC SERVICES PROCEDUR ES Final Result * Cardiology Document Scan (12/23/2024 10:36 AM CDT) Anatomical Region Laterality Modality Other Nava Sands NP CV CARDIAC SERVICE S PROCEDURES Final Result * Cardiology Document Scan (12/22/2024 11:27 AM CDT) Anatomical Region Laterality Modality Other Jennifer Hammond NP CV CARDIAC SERVICES PROCEDUR ES Final Result * Cardiology Document Scan (12/21/2024 10:43 AM CDT) Anatomical Region Laterality Modality Other us Liliana Kirk MD CV CARDIAC SERVICES PROCEDU RES Final Result * Cardiology Document Scan (12/20/2024 4:32 PM CDT) Anatomical Region Laterality Modality Other us Anirudh Wise MD CV CARDIAC SERVICES PROC EDURES Final Result * Cardiology Document Scan (12/19/2024 4:31 PM CDT) Anatomical Region Laterality Modality Other us Anirudh Wise MD CV CARDIAC SERVICES PROC EDURES Final Result from Last 3 Months Insurance MEDICARE [employer]RO[employer] MEDICARE SUPPLEMENT Care Teams Clinical Trials Specialist Relationship Specialty Start Date End Date Alicia Malcolm MD [address] [facility] [address] [place] [address] PCP - General Family Practice 05/14/24
--- OUTSIDE RECORDS SUMMARY | 2025-03-18 13:29 | XMS_ITS | Clinical Summary ---
Author Organization [facility] Address [address] [address] Care Team Providers Care Director Of Application Development Name Role Phone Taco Ho MD Primary Care Provider [phone] Source Comments [facility],non-[facility] Affiliates and Associated Physician Practices is amultiple site organization consisting of ambulatory clinics and hospital sitesin [place], [place], [place] and [place]. This disclosure is being madepursuant to the Care Everywhere program and may not contain all information available regarding this patient. 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 Gender Identity Not on file Sexual Orientation [...] Health Maintenance Due Date Last Done Comments MEDICARE AWV 12 MONTHS 1950 DTAP/TDAP/TD VACCINES (1 - Tdap) 02/09/1968 PNEUMOCOCCAL VACCINE 50+ (1 of 1 - PCV) 1999 ZOSTER VACCINE (1 of 2) 1999 Respiratory Syncytial Virus (RSV) Vaccine Pt: or over 60 yrs (1 - 1-dose 75+ series) 02/09/2024 DEPRESSION SCREENING 04/01/2024 COVID-19 VACCINE (1 - 2024-2 6 season) 2024 INFLUENZA VACCINE (#1) 2024 , 06/14/2014 HEPATITIS C SCREENING Completed 07/28/2021 HEPATITIS [...] this topic Medical Devices Implanted Type Area Pipelines Laborer Device Identifier Shelf Expiration Date Model / Serial / Lot Biomet Polyax Proximal Tibial/Distal Femoral Locking Plating System 5.5mm Ft Polyu Locking Screws Implanted:Qty: 2 on 08/02/2021 by Anibal Pressley DO at [facility] Right: Femur [id number] / / Biomet Polyax Proximal Tibial/Distal Femoral Locking Plating System 8.0mm Cannulated Locking Screw Implanted:Qty: 1 on 08/02/2021 by Anibal Pressley DO at [facility] Right: [employer] [id number] / / Biomet Polyax Proximal Tibial/Distal Femoral Locking Plating System 4.5mm Solid Cortical Bone Screw, Ft Implanted:Qty: 2 on 08/02/2021 by Anibal Pressley DO at [facility] Right: Femur [id number] / / Biomet Polyax Proximal Tibial/Distal Femoral Locking Plating System 5.5mm Ft Polyu Locking Screws Implanted:Qty: 1 on 08/02/2021 by Anibal Pressley DO at [facility] Right: Femur [id number] / / Biomet Polyax Proximal Tibial/Distal Femoral Locking Plating System 5.5mm Ft Polyu Locking Screws Implanted:Qty: 1 on 08/02/2021 by Anibal Pressley DO at [facility] Right: Femur [id number] / / Wire K 1.6mm 6in Hlf Bynt Pnt Ss Fx Implanted:Qty: 2 on 08/02/2021 by Anibal Pressley DO at [facility] [employer] [id number] / / Screw 3.5mm 5mm 60mm Ft Rvrs Cut Flut Implanted:Qty: 1 on 08/02/2021 by Anbial Pressley DO at [facility] Right: Femur [employer] [id number] / / Screw 3.5mm 5mm 80mm Ft Rvrs Cut Flut Implanted:Qty: 1 on 08/02/2021 by Anibal Pressley DO at [facility] Right: Femur [employer] [id number] / / Plate 9 Hl Lck Precontr Fem Rt Dist Implanted:Qty: 1 on 08/02/2021 by Anibal Pressley DO at [facility] Right: Femur [employer] [id number] / / Screw 3.5mm 5mm 85mm Ft Rvrs Cut Flut Implanted:Qty: 1 on 08/02/2021 by Anibal Pressley DO at [facility] Right: Femur [employer] [id number] / / Screw 3.5mm 5mm 90mm Ft Rvrs Cut Flut Implanted:Qty: 1 on 08/02/2021 by Anibal Pressley DO at [facility] Right: Femur [employer] [id number] / / Biomet Polyax Proximal Tibiasl/Distal Femoral Lociking Plating System 5.5 Mm Ft Poly Locking Screw Implanted:Qty: 2 on 08/02/2021 by Anibal Pressley DO at [facility] Right: [employer] [id number] / / Biomet Polyax Proximal Tibial/Diatal Femoral Locking Plating System 4.5mm Solid Cortical Bone Screw, Ft Implanted:Qty: 1 on 08/02/2021 by Anibal Pressley DO at [facility] Right: [employer] [id number] / / Explanted Type Area Pipelines Laborer Device Identifier Shelf Expiration Date Model / Serial / Lot Wire K 2mm 228mm Troc Pnt Ss Prlc Plate Explanted:Qty: 2 on 08/02/2021 at [facility] Right: [employer]ur [employer] 01/13/2031 [id number] / / [id number] Biomet Polyax Proximal Tibial/Distal Femoral Locking Plating System 5.5mm Ft Polyu Locking Screws Explanted:Qty: 2 on 08/02/2021 by Anibal Pressley DO at [facility] Right: Femur [id number] / / Biomet Polyax Proximal Tibial/Distal Femoral Locking Plating System 5.5mm Ft Polyu Locking Screws Explanted:Qty: 2 on 08/02/2021 by Anibal Pressley DO at [facility] Right: Femur [id number] / / Gd Pin Orth 3.2mm Polyax Fem Clbrt Lck Explanted:Qty: 1 on 08/02/2021 at [facility] [employer] [id number] / / Wshr Orth Ss 3.5-4 Mm Cecilia Screw Nonster Explanted:Qty: 3 on 08/02/2021 at [facility] [employer] [id number] / / Screw 3.5mm 5mm 85mm Ft Rvrs Cut Flut Explanted:Qty: 1 on 08/02/2021 by Anibal Pressley DO at [facility] Right: Femur [employer] [id number] / / Procedures Procedure Name Priority Date/Time Associated Diagnosis Comments HEPATITIS C AB SCREEN RFLX NAAT QUANT STAT 07/28/2021 1:43 PM CDT from Last 3 Months or Most Recently Relevant to Health Maintenance Results * HEPATITIS C AB SCREEN RFLX NAAT QUANT (07/28/2021 1:43 PM CDT) Hepatitis C Antibody Non-react oma Non-reac tive 07/28/2021 2:31 PM CDT [facility] Comment:Hepatitis C Antibody screen indicates [...] Ross Nelson MD LAB - CHEMISTRY ORDERABLES [facility] Result [facility] [address] [place] [address], [facility] [phone] from Last 3 Months or Most Recently Relevant to Health Maintenance Insurance MEDICARE [facility] SELF PAY NO INSURANCE Member Subscriber Plan / Payer (Ef fective for All Dates) Name:Irwin Cyr Jr. Member ID:Not on file Relation to Subscriber:Not on file Name:IRWIN CYR JR. Subscriber ID:Not on file (Home) Address: [address] [place] [address] Payer ID:Not on file Group ID:Not on file Type:Self Pay Address: [place], [place] MEDICARE Advance Directives * Full Code (Latest Code Status on File) Date Activated Date Inactivated Comments 07/29/2021 1:11 AM 08/11/2021 10:19 PM Care Teams Director Of Application Development Relationship Specialty Start Date End Date Taco Ho MD [address] [place] [address] PCP - General 08/07/21
--- OUTSIDE RECORDS SUMMARY | 2025-03-18 14:19 | XMS_ITS | Clinical Summary ---
Author Organization [facility] Address [address] [place] [address] Care Team Providers Care Liner Inserter Name Role Phone Taco Ho MD Primary Care Provider [phone] Source Comments [facility] Affiliates and Associated Physician Practices is amultiple site organization consisting of ambulatory clinics and hospital sitesin [place], [place], [place] and [place]. This disclosure is being madepursuant to the Care Everywhere program and may not contain all information available regarding this patient. 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 Gender Identity Not on file Sexual Orientation [...] this topic Medical Devices Implanted Type Area Outdoor Advertising Leasing Agent Device Identifier Shelf Expiration Date Model / Serial / Lot Biomet Polyax Proximal Tibial/Distal Femoral Locking Plating System 5.5mm Ft Polyu Locking Screws Implanted:Qty: 2 on 08/02/2021 by Anibal Pressley DO at [facility] Right: Femur [id number] / / Biomet Polyax Proximal Tibial/Distal Femoral Locking Plating System 8.0mm Cannulated Locking Screw Implanted:Qty: 1 on 08/02/2021 by Anibal Pressley DO at [facility] Right: [employer] [id number] / / Biomet Polyax Proximal Tibial/Distal Femoral Locking Plating System 4.5mm Solid Cortical Bone Screw, Ft Implanted:Qty: 2 on 08/02/2021 by Anibal Pressley DO at [facility] Right: Femur [id number] / / Biomet Polyax Proximal Tibial/Distal Femoral Locking Plating System 5.5mm Ft Polyu Locking Screws Implanted:Qty: 1 on 08/02/2021 by Anibal Pressley DO at [facility] Right: Femur [id number] / / Biomet Polyax Proximal Tibial/Distal Femoral Locking Plating System 5.5mm Ft Polyu Locking Screws Implanted:Qty: 1 on 08/02/2021 by Anibal Pressley DO at [facility] Right: [employer]ur [id number] / / Wire K 1.6mm 6in Hlf Bynt Pnt Ss Fx Implanted:Qty: 2 on 08/02/2021 by Anibal Pressley DO at [facility] [employer] [id number] / / Screw 3.5mm 5mm 60mm Ft Rvrs Cut Flut Implanted:Qty: 1 on 08/02/2021 by Anibal Pressley DO at [facility] Right: Femur [employer] [id number] / / Screw 3.5mm 5mm 80mm Ft Rvrs Cut Flut Implanted:Qty: 1 on 08/02/2021 by Anibal Pressley DO at [facility] Right: Femur [employer] [id number] / / Plate 9 Hl Lck Precontr Fem Rt Dist Implanted:Qty: 1 on 08/02/2021 by Anibal Presslye DO at [facility] Right: Femur [employer] [id number] / / Screw 3.5mm 5mm 85mm Ft Rvrs Cut Flut Implanted:Qty: 1 on 08/02/2021 by Anibal Pressley DO at [facility] Right: Femur [employer] [id number] / / Screw 3.5mm 5mm 90mm Ft Rvrs Cut Flut Implanted:Qty: 1 on 08/02/2021 by Anibal Pressley DO at [facility] Right: Femur [employer] [id number] / / Biomet Polyax Proximal Tibiasl/Distal Femoral Lociking Plating System 5.5 Mm Ft Poly Locking Screw Implanted:Qty: 2 on 08/02/2021 by Anibal Pressley DO at [facility] Right: [employer] [id number] / / Biomet Polyax Proximal Tibial/Diatal Femoral Locking Plating System 4.5mm Solid Cortical Bone Screw, Ft Implanted:Qty: 1 on 08/02/2021 by Anibal Pressley DO at [facility] Right: [employer] [id number] / / Explanted Type Area Outdoor Advertising Leasing Agent Device Identifier Shelf Expiration Date Model / Serial / Lot Wire K 2mm 228mm Troc Pnt Ss Prlc Plate Explanted:Qty: 2 on 08/02/2021 at [facility] Right: Femur [employer] 01/13/2031 [id number] / / [id number] Biomet Polyax Proximal Tibial/Distal Femoral Locking Plating System 5.5mm Ft Polyu Locking Screws Explanted:Qty: 2 on 08/02/2021 by Anibal Pressley DO at [facility] Right: Femur [id number] / / Biomet Polyax Proximal Tibial/Distal Femoral Locking Plating System 5.5mm Ft Polyu Locking Screws Explanted:Qty: 2 on 08/02/2021 by Anibal Pressley DO at [facility] Right: Femur [id number] / / Gd Pin Orth 3.2mm Polyax Fem Clbrt Lck Explanted:Qty: 1 on 08/02/2021 at [facility] [employer] [id number] / / Wshr Orth Ss 3.5-4 Mm Cecilia Screw Nonster Explanted:Qty: 3 on 08/02/2021 at [facility] [employer] [id number] / / Screw 3.5mm 5mm 85mm Ft Rvrs Cut Flut Explanted:Qty: 1 on 08/02/2021 by Anibal Pressley DO at [facility] Right: Femur [employer] [id number] / / Procedures Procedure Name Priority Date/Time Associated Diagnosis Comments HEPATITIS C AB SCREEN RFLX NAAT QUANT STAT 07/28/2021 1:43 PM CDT from Last 3 Months or Most Recently Relevant to Health Maintenance Results * HEPATITIS C AB SCREEN RFLX NAAT QUANT (07/28/2021 1:43 PM CDT) Hepatitis C Antibody Non-react oma Non-reac tive 07/28/2021 2:31 PM CDT [facility] Comment:Hepatitis C Antibody screen [...] Ross Nelson MD LAB - CHEMISTRY ORDERABLES [facility] Result [facility] [address] [place] [address], [facility] [phone] from Last 3 Months or Most Recently Relevant to Health Maintenance Insurance MEDICARE [facility] SELF PAY NO INSURANCE Member Subscriber Plan / Payer (Ef fective for All Dates) Name:Irwin Cyr Jr. Member ID:Not on file Relation to Subscriber:Not on file Name:IRWIN CYR JR. Subscriber ID:Not on file (Home) Address: [address] [place] [address] Payer ID:Not on file Group ID:Not on file Type:Self Pay Address: [place], [place] MEDICARE Advance Directives * Full Code (Latest Code Status on File) Date Activated Date Inactivated Comments 07/29/2021 1:11 AM 08/11/2021 10:19 PM Care Teams Liner Inserter Relationship Specialty Start Date End Date Taco Ho MD [address] [place] [address] PCP - General 08/07/21
--- OUTSIDE RECORDS SUMMARY | 2025-03-18 14:19 | XMS_ITS | Clinical Summary ---
Author Organization [facility] Address [address], [place] [address] Phone Care Team Providers Care Extrusion Press Adjuster Name Role Phone Alicia Malcolm MD Primary Care Provider Allergies Active Allergy Reactions Criticality Noted Date Comments Codeine Nausea Only Low Other reaction(s): Vomiting Hydrocodone Nausea Only,Other (s ee comments) Low Penicillins Hives,Rash Medium Sulfa Antibiotics Rash Medium Medications omeprazole (PRILOSEC) [address] capsule 1 tab qday 2 Active ergocalciferol (VITAMIN D-2) 87088 units capsule 1 tab/cap every week for [...] Risk Completed 01/12/2020, 01/21/[address] [facility] MEDICARE SUPPLEMENT Care Teams Extrusion Press Adjuster Relationship Specialty Start Date End Date Alicia Malcolm MD [address] [place] [address] PCP - General Internal Medicine 08/05/18
--- OUTSIDE RECORDS SUMMARY | 2025-03-18 14:20 | XMS_ITS | Encounter Summary ---
Author Organization [facility] Address [address], [place] [address] Phone Care Team Providers Care Electrical Tryout Person Name Role Phone Alicia Malcolm MD Primary Care Provider Reason for Visit * Reason Comments Med Refill Encounter Details Date Type Department Care Team (Late st Contact Info) Description 02/23/2019 Refill [facility] Nephrology and Hypertension [address] [place] [address], [address] [place], [place] [id number] Chester Longo MD [address], [address] [place] [address] Social History Tobacco Use Types Packs/Day Years [...] on filedocumented in this encounter Care Teams Electrical Tryout Person Relationship Specialty Start Date End Date Alicia Malcolm MD [address] [place] [address] PCP - General Internal Medicine 08/05/18 documented as of this encounter
--- OUTSIDE RECORDS SUMMARY | 2025-03-18 14:20 | XMS_ITS | Clinical Summary ---
Author Organization [facility] [address] Address [address] [place] [address] Care Team Providers Care Speech Pathologist Name Role Phone Alicia Malcolm MD Primary [...] 04/06/2023 Assessment & Plan (02/05/2024 11:38 AM PREMIX OPERATOR CONCENTRATE): Venous insufficiency noted to both lower extremities [...] Department Care Team Description 02/03/2025 11:30 AM PREMIX OPERATOR CONCENTRATE Office Visit [facility] Cardiology [address] [address] [place] [phone] Jennifer Hammond, SARTHAK Chronic heart failure with preserved ejection fraction (Primary Dx); AMELIA treated with BiPAP; Benign hypertension; Longstanding persistent atrial fibrillation (HCC); Hospital discharge follow-up 01/06/2025 Orders Only [facility] Cardiology [address] [place] [phone] Jennifer Hammond, SARTHAK 12/28/2024 Orders Only [facility] Cardiology [address] [place] [address] [place] [phone] Jennifer Hammond, SARTHAK 12/24/2024 Orders Only [facility] Cardiology [address] [place] [phone] Nava Sands NP 12/23/2024 Orders Only [facility] Cardiology [address] [place] [address] [place] [phone] Jennifer Hammond, SARTHAK 12/22/2024 Orders Only [facility] Cardiology [address] [place] [address] [place] [phone] Liliana Kirk MD 12/21/2024 Orders Only [facility] Cardiology [address] [place] [address] [place] [phone] Anirudh Wise MD from Last 3 Months [...] on file Legal Sex Male 1:10 PM PREMIX OPERATOR CONCENTRATE Gender Identity Not on file Sexual Orientation Not on file Last Filed Vital Signs Vital Sign Reading Time Taken Comments Blood Pressure 110/60 02/03/2025 11:39 AM PREMIX OPERATOR CONCENTRATE Pulse 76 02/03/2025 11:39 AM PREMIX OPERATOR CONCENTRATE Temperature 36.8 C (98.2 F) 12/25/2019 11:12 AM CDT Respiratory Rate 15 02/04/2020 11:41 AM PREMIX OPERATOR CONCENTRATE Oxygen Saturation 92% 02/03/2025 11:39 AM PREMIX OPERATOR CONCENTRATE Inhaled Oxygen Concentration - - Weight 148.3 kg (327 lb) 08/12/2024 10:43 AM CDT Height 185.4 cm (6' 1) 02/03/2025 11:39 AM PREMIX OPERATOR CONCENTRATE Body Mass Index 43.14 08/12/2024 10:43 AM [...] Insurance MEDICARE RAILROAD MEDICARE SUPPLEMENT Care Teams Speech Pathologist Relationship Specialty Start Date End Date Alicia Malcolm MD [address] [facility] [address] [place] [address] PCP - General Family Practice 05/14/24
--- OUTSIDE RECORDS SUMMARY | 2025-03-18 14:20 | XMS_ITS | Encounter Summary ---
Author Organization [facility] Address [address], [place] [address] Phone Care Team Providers Care Solid Propellant Processor Name Role Phone Alicia Malcolm MD Primary Care Provider Reason for Visit * Reason Comments Med Refill Encounter Details Date Type Department Care Team (Late st Contact Info) Description 05/25/2019 Refill [facility] Nephrology and Hypertension [address] [place] [address], [address] [place] [address] Chester Longo MD [address] [facility], [address] [place] [address] Social History Tobacco Use Types Packs/Day Years [...] on filedocumented in this encounter Care Teams Solid Propellant Processor Relationship Specialty Start Date End Date Alicia Malcolm MD [address] [place] [address] PCP - General Internal Medicine 08/05/18 documented as of this encounter
--- OUTSIDE RECORDS SUMMARY | 2025-03-18 14:20 | XMS_ITS | Encounter Summary ---
Author Organization [facility] Address [address] [address] Phone Care Team Providers Care 4Th Grade Math Teacher Name Role Phone Alicia Malcolm MD Primary Care Provider Encounter Details Date Type Department Care Team (Late st Contact Info) Description 09/17/[address] [facility] Nephrology and Hypertension [address] [facility], [address] [facility] [place] [address] Jacquie Al MA Social History Tobacco Use [...] on filedocumented in this encounter Care Teams 4Th Grade Math Teacher Relationship Specialty Start Date End Date Alicia Malcolm MD [address] [place] [address] PCP - General Internal Medicine 08/05/18 documented as of this encounter
[2025-03-18 14:49] LABS: Hematocrit 37.5 % (42.0-52.0); Hemoglobin 10.8 g/dL (14.0-18.0); Immature Granulocyte Percent A 0.7 % (0-0.5); Lymphocytes Absolute Auto 0.37 K/mm3 (0.9-3.2); Mean Corpuscular HGB Conc 28.8 g/dl (32-36); Mean Corpuscular Hemoglobin 24.9 pg (26-34); Mean Corpuscular Volume 86.6 fl (80-100); Nucleated Red Blood Cells Absolute Auto 0.000 K/mm3 (0.0-0.012); Nucleated Red Blood Cells Perc 0.0 % (0.0-0.2); Platelet Count Result 388 k/mm3 (150-375); Red Blood Count 4.33 M/mm3 (4.6-6.20); White Blood Count 10.4 K/mm3 (4.5-10.0)
[2025-03-18 14:59] LABS: Alanine Aminotransferase 9 U/L (6-50); Albumin Level 3.2 g/dL (3.5-5.1); Alkaline Phosphatase 58 U/L (38-126); Anion Gap 7 mmol/L (4-12); Aspartate Amino Transferase 22 U/L (17-59); Bilirubin,Total 0.5 mg/dL (0.2-1.3); Blood Urea Nitrogen 66 mg/dL (9-20); Calcium 8.2 mg/dL (8.4-10.2); Carbon Dioxide 31 mmol/L (22-30); Chloride 93 mmol/L (98-107); Estimated CRCL calculation 33 ml/min; Estimated Glomerular Filt Rate 22; Glucose 94 mg/dL (65-110); Potassium 3.5 mmol/L (3.4-5.0); Sodium 131 mmol/L (137-145); Total Protein 5.7 g/dL (6.3-8.2)
[2025-03-18 15:12] LABS: Add Urine Microscopic? YES; Appearance Urine Clear (Clear); Glucose Urine UA Negative (Negative); Leukocyte Esterase Ur 3+ LEU/UL (Negative); Nitrate Urine Negative (Negative); Non Pathogenic Casts 0-2; Specific Grav Ur 1.011 (1.001-1.035)
[2025-03-18 15:15] LABS: NT Pro B Type Natriuretic Pept 14900 pg/mL (19.9-100); Troponin I 0.057 ng/mL (0.000-0.034)
[2025-03-18 15:17] LABS: Schistocytes None Seen
[2025-03-18 15:18] LABS: Anisocytosis 1+; Hypochromasia Occasional; Ovalocytes 1+
[2025-03-18 15:19] LABS: Polychromasia Occasional
[2025-03-18] MEDS: FUROSEMIDE INJ 40 MG/4 ML VIAL IV PUSH (16:51)
[2025-03-18] MEDS: ACETAMINOPHEN 500 MG TABLET 1000 MG PO (18:19)
--- NOTE | 2025-03-18 20:22 | PM.IMHP2 ---
H&P: HPI History of Present Illness Date/Time: 03/18/25 20:22 Chief Complaint: Weakness edema Narrative: This is a 75-year-old male patient who has a history of chronic kidney disease, peripheral edema, congestive heart failure, atrial fibrillation anticoagulated with Eliquis, hypertension, hyperlipidemia, and right lwxkz-clj-xfkw amputation. The patient stated he was too weak today to move from his hospital bed at home to his motorized scooter with a slide board. He also noticed increased swelling to his scrotum as well. He denies any chest pain or shortness of breath at this time. Chest x-ray was read as no acute cardiopulmonary findings given portable technique. White count was noted to be 10.4. H&H is 10.8 in 37.5 which is above his baseline. Sodium level is at his baseline of 131, creatinine 2.84 which is slightly above his baseline of 1.9-2.8. His GFR is 22 which is slightly lower than his baseline of 31-35. His troponin is 0.057. BNP [address] with a previous level of 11,600. Urine has 3+ leukocyte esterase urine rbc's 3-5 and WBCs greater than 100. The patient was given Lasix and Tylenol in the emergency room. The patient is being admitted to IMU inpatient status on the date of service of 03/18/2025. Review of Systems Constitutional: Constitutional: Reports as per HPI and Reports no additional constitutional complaints Eyes: Eyes: Reports as per HPI and Reports no additional eye complaints ENT: Reports no additional ear, nose, mouth, and throat complaints and Reports Normal hearing present Cardiovascular: Cardiovascular: Reports no additional cardiovascular complaints Respiratory: Respiratory: Reports as per HPI and Reports no additional respiratory complaints Gastrointestinal: Gastrointestinal: Reports as per HPI and Reports no additional gastrointestinal complaints Musculoskeletal: Musculoskeletal: Reports no additional musculoskeletal complaints Integumentary/Breasts: Skin/Breast: Reports system reviewed and no additional complaints, except as docu Neurologic: Reports no additional neurologic complaints and Reports Normal hearing present Psychiatric: Psychiatric: Reports no additional psychiatric complaints and Reports as per HPI Hematologic/Lymphatic: Hematologic/Lymphatic: Reports no additional hematologic/lymphatic complaints Allergic/Immunologic: Allergic/Immunologic: Reports no additional allergic/immunologic complaints [facility] Past Medical History Medical History (Updated 03/18/25 @ 23:09 by Fabby Boss APRN) Anemia of chronic disease CKD (chronic kidney disease) CHF (congestive heart failure) History of chronic CHF Lymphedema of lower extremity Iron deficiency anemia Right foot infection s/p BKA(08/23) Venous stasis ulcer of right lower extremity Lymphedema due to chronic inflammation Constipation Stercoral ulcer of rectum Fecal impaction Proctitis Hyponatremia Peripheral vascular disease Morbid obesity with body mass index (BMI) of 40.0 or higher Neuropathic pain Gout Sepsis Chronic acquired lymphedema Chronic anemia Obstructive sleep apnea Atrial fibrillation Lymphedema of both lower extremities Environmental allergies Ocular rosacea Rosacea Chronic low back pain Chronic venous insufficiency GERD without esophagitis Chronic congestive heart failure Echocardiogram in May 2021 was technically difficult and showed normal LV systolic function with an EF of 60 to 65%, severely enlarged RV chamber with moderate to severely reduced RV systolic function, severe biatrial enlargement, and moderate pulmonary hypertension. Dyslipidemia Essential (primary) hypertension Peripheral polyneuropathy Hypothyroidism Surgical History Surgical History (Updated 03/18/25 @ 22:42 by Fabby Boss APRN) History of testicular surgery At Hx of right BKA (~07/2024) S/P BKA (below knee amputation) 08/25/24 Right below-knee amputation Dr. Malone History of carpal tunnel release History of thoracic surgery Pericardial effusion s/p pericardial window thought secondary to minoxidil, in 2010 at [facility]. H/O eye surgery (~2005) [id number] [facility] 5 surgeries for detached retina. History of foot surgery Left Foot History of cholecystectomy (2008) History of rotator cuff surgery Bilateral. History of discectomy (2012) Family History Family History Father Cardiovascular disease Grandparent Cancer Mother COPD (chronic obstructive pulmonary disease) Social History Social History (Updated 03/18/25 @ 22:43 by Fabby Boss APRN) Social History: Surrogate medical decision maker: Shyla Hurst, daughter. He has a hospital bed and electric power chair at home. He is . He has 2 daughters. He has 4 grandchildren next door who help take care oh him. 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 Code status: Full code. Caffeine-decalf coffee, diet soda Smoking packs per day: 2 Smoking cigarettes per day: 40.0 Years smoked: 20 Smoking pack-years: 40.00 Smoking status: Former smoker Second hand tobacco smoke exposure: No Additional smoking assessment comments: 1978 Alcohol intake: never Alcohol use details: One beer daily. Substance use: never Substance use type: does not use Lack of Transportation: No Lack of Food: Never True Current Housing: I Have Housing Concerned About Future Housing: No Difficulty Paying Gas/Electric Bills: No Difficulty Paying for Meds: No Currently Unemployed: No Education: Associate Degree Difficulty w/ Childcare or Family Care: No Living arrangements: alone Additional living arrangements comments: Lives in own home in [place]. Uses a motorized scooter and transfers with slide board. Occupation/Education: retired Additional occupation/education comments: Retired. 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 Spiritual care concerns: No Meds Home Medications and Allergies Home Medications ?Medication ?Instructions ?Recorded ?Confirmed ?Type apixaban 5 mg tablet (Eliquis) 5 mg PO Q12HR #180 tabs 01/19/22 03/18/25 Rx calcitriol 0.25 mcg capsule 0.25 mcg PO 3XW #36 caps 10/30/23 03/18/25 Rx allopurinol 100 mg tablet 100 mg PO DAILY #10 tabs 08/04/24 03/18/25 Rx famotidine 20 mg tablet 20 mg PO BID #180 tabs 08/04/24 03/18/25 Rx minoxidil 2.5 mg tablet 2.5 mg PO DAILY 08/04/24 03/18/25 History tamsulosin 0.4 mg capsule 0.4 mg PO QAM #90 caps 08/04/24 03/18/25 Rx acetaminophen 500 mg capsule 500 mg PO Q6H PRN fever or pain 09/15/24 03/18/25 History fluticasone propionate 50 1 spray intranasal DAILY PRN 10/21/24 03/18/25 History mcg/actuation nasal Congestion spray,suspension (Flonase Allergy Relief) loratadine 10 mg tablet (Claritin) 10 mg PO DAILY allergy symptoms 10/21/24 03/18/25 History polyethylene glycol 3350 17 17 g PO DAILY PRN Constipation 10/21/24 03/18/25 History gram/dose oral powder (Miralax) metolazone 2.5 mg tablet 2.5 mg PO .COMPLEX 12/17/24 03/18/25 History lanolin alcohols-mineral 1 applic topical DAILY #113 grams 12/29/24 03/18/25 Rx oil-w.petrolatum-ceresin topical cream (Minerin Creme topical) spironolactone 25 mg tablet 25 mg PO DAILY #30 tabs 12/29/24 03/18/25 Rx levothyroxine 200 mcg tablet 200 mcg PO DAILY #90 tabs 01/18/25 03/18/25 Rx bumetanide 1 mg tablet 1 mg PO TID 02/18/25 03/18/25 History docusate sodium 100 mg capsule 100 mg PO Q12H constipation 02/18/25 03/18/25 History potassium chloride 10 mEq 20 meq PO TID 02/18/25 03/18/25 History capsule,extended release cholecalciferol (vitamin D3) 1,250 1,250 mcg PO WEEKLY #14 caps 02/22/25 03/18/25 Rx mcg (50,000 unit) capsule gabapentin 300 mg capsule 300 mg PO TID #270 caps 03/02/25 03/18/25 Rx acetazolamide 250 mg tablet 250 mg PO DAILY@0800 03/18/25 03/18/25 History ferrous sulfate 325 mg (65 mg 325 mg PO BID #180 tabs 03/18/25 03/18/25 Rx iron) tablet metoprolol tartrate 50 mg tablet 50 mg PO DAILY@0800 03/18/25 03/18/25 History Allergies Allergy/AdvReac Type Severity Reaction Status Date / Time Sulfa (Sulfonamide Allergy Mild Rash Verified 02/18/25 13:13 Antibiotics) Penicillins Allergy Unknown SWELLING Verified 02/18/25 13:13 codeine AdvReac Mild N/V Verified 02/18/25 13:13 hydrocodone AdvReac Mild N/V Verified 02/18/25 13:13 oxycodone (From OxyContin) AdvReac Mild Nausea Verified 02/18/25 13:13 tramadol AdvReac Mild Nausea Verified 02/18/25 13:13 Vital Signs Vital Signs - 24 hr 03/18/25 12:57 03/18/25 13:23 03/18/25 13:30 Temperature 97.9 F Pulse Rate 71 78 71 Respiratory Rate 16 16 16 Blood Pressure 109/46 L 134/54 L 127/30 L Pulse Oximetry 95 97 99 Oxygen Delivery Room Air 03/18/25 14:00 03/18/25 15:03 03/18/25 16:30 Temperature Pulse Rate 72 82 83 Respiratory Rate 17 17 18 Blood Pressure 141/56 H 135/62 125/63 Pulse Oximetry 97 98 98 Oxygen Delivery 03/18/25 17:15 03/18/25 18:45 Temperature Pulse Rate 84 73 Respiratory Rate 17 18 Blood Pressure 148/71 H 135/67 Pulse Oximetry 100 97 Oxygen Delivery Exam Const: General: cooperative, comfortable, no acute distress, well developed, awake, Physically active and well nourished Nutritional Appearance: average body habitus and well nourished Orientation/consciousness: oriented to person, oriented to place, oriented to time and patient oriented x3 Limitations: no limitations HENMT: Head: normal to inspection, No palpable skull fracture present, normocephalic, atraumatic and abrasion Ears: hearing grossly normal bilaterally Eyes: General: appearance normal, both eyes and all related structures Alignment and Position: alignment normal Periorbital: periorbital findings normal Eyelids: eyelids normal Neck: Neck: normal visual inspection, full ROM and no lymphadenopathy Chest: Chest palpation & inspection: normal inspection of the chest Resp: Effort & Inspection: normal respiratory effort Auscultation: clear to auscultation bilaterally Cardio: Palpation: normal PMI Rate: regular rate Rhythm: regular rhythm Heart sounds: S1 normal heart sound present and S2 normal heart sound present GI: Inspection: normal to inspection Percussion: Yes normal to percussion : General: Yes no CVA tenderness Back/Spine/Pelvis: Back: no CVA tenderness Cervical Spine: cervical ROM normal Skin: General skin exam: normal color Lesions: no lesions Rashes: no rashes Trauma: no lacerations or abrasions Wounds: no wounds Hair: normal Nails: normal Neuro: General: oriented to person, oriented to place, oriented to time and patient oriented x3 Cranial nerves: Yes Normal hearing present Cognition (Neuro): normal cognition Speech: normal speech Extrem: General: normal to inspection Right upper extremity: normal to inspection and shoulder/upper arm Left upper extremity: normal to inspection and shoulder/upper arm Psych: Appearance: grossly normal Mental Status: mental status grossly normal Speech and movement: Normal speech and movement present Affect: normal affect Attitude: cooperative Thought process: Normal thought process present Thought content: Yes Normal thought content present Insight: Good insight present (Psych) Judgement: Good judgement present (Psych) Results Labs Labs: Short CBC 03/18/25 Range/Units 13:50 WBC 10.4 H (4.5-10.0) K/mm3 Hgb 10.8 L (14.0-18.0) g/dL Hct 37.5 L (42.0-52.0) % Plt Count 388 H (150-375) k/mm3 BMP 03/18/25 13:50 Sodium 131 L Potassium 3.5 Chloride 93 L Carbon Dioxide 31 H BUN 66 H Creatinine 2.84 H Glucose 94 Calcium 8.2 L Cardiac Enzymes 03/18/25 Range/Units 13:50 Troponin I 0.057 H* (0.000-0.034) ng/mL Liver Function 03/18/25 Range/Units 13:50 Total Bilirubin 0.5 (0.2-1.3) mg/dL AST 22 (17-59) U/L ALT 9 (6-50) U/L Alkaline Phosphatase 58 (38-126) U/L Albumin 3.2 L (3.5-5.1) g/dL Urine 03/18/25 Range/Units 15:02 Urine Color Yellow (Yellow) Urine Appearance Clear (Clear) Urine pH 7.0 (5.0-9.0) Ur Specific [place] 1.011 (1.001-1.035) Urine Protein Negative (Negative) mg/dL Urine Glucose (UA) Negative (Negative) mg/dL ECG Interpretation: 104 QRSd 182 QT 419 QTc 462 --[place]-- P 251 QRS 262 T 77 JUNCTIONAL RHYTHM RIGHT AXIS DEVIATION [QRS AXIS > 100] RIGHT BUNDLE BRANCH BLOCK [120+ ms QRS DURATION, UPRIGHT V1, 40+ ms S IN I/aVL/V4/V5/V6] Compared to ECG 03/18/2025 14:01:37 Junctional rhythm now present Atrial flutter no longer present Ventricular premature complex(es) no longer present Imaging Chest x-ray: Radiologist's impression: ITS Impressions Chest X-Ray 03/18/25 13:29 IMPRESSION: 1. No acute cardiopulmonary findings given portable technique. Consider PA and lateral films with deep inspiration. Quality VTE Prophylaxis VTE prophylaxis: pharmacologic ordered Assessment and Plan Assessment and plan (1) Acute on chronic diastolic heart failure: Code(s): I50.33 - Acute on chronic diastolic (congestive) heart failure Status: Acute Assessment and Plan: -echo on 12/17/2024 was read as left ventricular systolic function is normal estimated at 65-70, left ventricular diastolic function is abnormal. -patient 2+ the 3+ pitting edema to left lower extremity. -IV Bumex has been ordered. The patient got a dose of Lasix in the emergency room. Monitor renal function closely. Continue with potassium supplement as well. -continue with Aldactone. -continue with Zaroxolyn (2) Cardiac enzymes elevated: Code(s): R74.8 - Abnormal levels of other serum enzymes Status: Acute Assessment and Plan: -cardiology has been consulted. -troponin 0.057, 0.061. Repeat troponin in the a.m.. -the patient is not short of breath or having any chest pain. -this could be related to his CHF and are chronic renal failure. (3) UTI (urinary tract infection): Code(s): N39.0 - Urinary tract infection, site not specified Status: Acute Assessment and Plan: -he was started on Rocephin. -blood and urine cultures are pending (4) Atrial fibrillation: Qualifiers: Atrial fibrillation type: longstanding persistent Qualified Code(s): I48.11 - Longstanding persistent atrial fibrillation Code(s): I48.91 - Unspecified atrial fibrillation Status: Chronic Assessment and Plan: -the patient is currently in sinus rhythm. -continue with Eliquis -continue with metoprolol -rate is controlled at this time. (5) Venous stasis dermatitis: Code(s): I87.2 - Venous insufficiency (chronic) (peripheral) Status: Acute Assessment and Plan: -continue with lanolin oil patient has a right [id number]-[id number] amputation that is fairly new from a couple months ago. (6) Peripheral vascular disease: Code(s): I73.9 - Peripheral vascular disease, unspecified Status: Acute Assessment and Plan: -the patient is on apixaban. (7) Dyslipidemia: Code(s): E78.5 - Hyperlipidemia, unspecified Status: Acute Assessment and Plan: -continue with home medications. The patient does not appear to be on any statins for unknown reasons. (8) Hypothyroidism: Qualifiers: Hypothyroidism type: acquired Qualified Code(s): E03.9 - Hypothyroidism, unspecified Code(s): E03.9 - Hypothyroidism, unspecified Status: Chronic Assessment and Plan: -continue with levothyroxine (9) CKD (chronic kidney disease) stage 3, GFR 30-59 ml/min: Qualifiers: Chronic kidney disease stage 3 subtype: stage 3b (GFR 30-44) Qualified Code(s): N18.32 - Chronic kidney disease, stage 3b Code(s): N18.3 - Chronic kidney disease, stage 3 (moderate) Status: Acute Assessment and Plan: -creatinine 2.84 which is slightly above his baseline of 1.9-2.8. His GFR is 22 which is slightly lower than his baseline of 31-34 -monitor BMP daily. -may consider Nephrology consult if labs worsen with diuretics. (10) Anemia of chronic disease: Code(s): D63.8 - Anemia in other chronic diseases classified elsewhere Status: Acute Assessment and Plan: -the patient is slightly above his baseline. This appears to be stable. Most likely secondary to his chronic renal failure. (11) AMELIA (obstructive sleep apnea): Code(s): G47.33 - Obstructive sleep apnea (adult) (pediatric) Status: Chronic Assessment and Plan: The patient brought his own CPAP machine, he may continue to use this . (12) Gout: Qualifiers: Gout site: multiple sites Gout etiology: unspecified cause Chronicity: chronic Qualified Code(s): M1A.09X0 - Idiopathic chronic gout, multiple sites, without tophus (tophi) Code(s): M10.9 - Gout, unspecified Status: Acute (13) Rosacea: Code(s): L71.9 - Rosacea, unspecified Status: Acute Plan The patient has chronic hyponatremia. Most likely secondary to his CHF with 3rd spacing.
--- NOTE | 2025-03-18 21:08 | PC.NURSE ---
2049--patient transferred from ED stretcher to floor unit bed using inflated air mattress. Patient tolerated well. Moved from room 5 into room 6
--- NOTE | 2025-03-18 22:15 | ECG_ITS ---
Test Date: 2025-03-18 22:21:51 Measurements Intervals [place] Rate: 72 P: 251 [place]: 104 QRS: 262 QRSD: 182 T: 77 QT: 419 QTc: 462 Interpretive Statements ATRIAL FLUTTER/TACHYCARDIA WITHNORMAL VENTRICULAR RATE RIGHT AXIS DEVIATION RIGHT BUNDLE BRANCH BLOCK BASELINE ARTIFACT- I, III, AVR, AVL, AVF, V1-V6 ABNORMAL ECG Compared to ECG 03/18/2025 14:01:37 NO SIGNIFICANT CHANGE Electronically Signed On 03-19-2025 06:32:49 DRUG ABUSE TECHNICIAN by Reid Hubbard D.O.
[2025-03-18] MEDS: cefTRIAXone 1 GM in SODIUM CHLORIDE 0.9% IV 50 ML 100 ML IVPB (22:51)
[2025-03-18 22:58] LABS: Troponin I 0.061 ng/mL (0.000-0.034)
[2025-03-18] MEDS: APIXABAN 5 MG TABLET PO (23:20)
[2025-03-18] MEDS: FAMOTIDINE 20 MG TABLET PO (23:20)
[2025-03-18] MEDS: GABAPENTIN 300 MG CAPSULE PO (23:20)
[2025-03-18] MEDS: WATER FOR IRRIGATION, STERILE 500 ML BOTTLE (23:24)
[2025-03-19] VITALS (19 sets, daily range): BP systolic 101–127; BP diastolic 40–60; PULSE 70–80; RESP 16–22; TEMP 36.1–37; O2SAT 94–99; BMI 47.0
--- NOTE | 2025-03-19 00:07 | WPCEDHO ---
ED Hand Off Checklist All vitals saved: Y IV Site documented: Y All med administrations documented: No, unverified med from pharmacy Triage Note Triage Note Pt to the ED via EMS from home 03/18/25 13:23 for evaluation of weakness and fluid retention. 1315-Patient moved from wheelchair to ED stretcher via [employer] and multiple RN assist. patient tolerated. Patient alert and oriented. Patient reports increased swelling in lower torso, extremities and scrotum x 1 week. Patient is normally able to transfer self using wheelchair and slide board but has been unable to due to weakness. Weeping present in right BKA and left lower leg. Patient denies chest pain, reports difficulty taking a deep breath due to a lot of pressure Allergies Sulfa (Sulfonamide Antibiotics) Allergy (Mild, Verified 02/18/25 13:13) Rash PER FLOOR COMPUTER ENTRY Penicillins Allergy (Unknown, Verified 02/18/25 13:13) SWELLING Patient received cefepime in December 2023 UNCODED codeine Adverse Reaction (Mild, Verified 02/18/25 13:13) N/V hydrocodone Adverse Reaction (Mild, Verified 02/18/25 13:13) N/V oxycodone (From OxyContin) Adverse Reaction (Mild, Verified 02/18/25 13:13) Nausea tramadol Adverse Reaction (Mild, Verified 02/18/25 13:13) Nausea Current Diagnoses Anemia in other chronic diseases classified elsewhere (03/18/25) Hypothyroidism, unspecified (03/18/25) Hyperlipidemia, unspecified (03/18/25) Obstructive sleep apnea (adult) (pediatric) (03/18/25) Longstanding persistent atrial fibrillation (03/18/25) Acute on chronic diastolic (congestive) heart failure (03/18/25) Peripheral vascular disease, unspecified (03/18/25) Venous insufficiency (chronic) (peripheral) (03/18/25) Rosacea, unspecified (03/18/25) Idiopathic chronic gout, multiple sites, without tophus (tophi) (03/18/25) Chronic kidney disease, stage 3b (03/18/25) Urinary tract infection, site not specified (03/18/25) Abnormal levels of other serum enzymes (03/18/25) Family History (Last Reviewed 03/18/25 @ 22:42 by Fabby Boss APRN) Father Cardiovascular disease Grandparent Cancer Mother COPD (chronic obstructive pulmonary disease) Active Medications including assessments/comments Apixaban (Apixaban 5 Mg Tablet) 5 mg PO Q12HR [facility] Last Admin: 03/18/25 23:20 Dose: 5 mg Documented By: JERICA Famotidine (Famotidine 20 Mg Tablet) 20 mg PO BID [facility] Last Admin: 03/18/25 23:20 Dose: 20 mg Documented By: JERICA Gabapentin (Gabapentin 300 Mg Capsule) 300 mg PO TID [facility] Last Admin: 03/18/25 23:20 Dose: 300 mg Documented By: JERICA Administered/Completed Medications Discontinued Medications Acetaminophen (Acetaminophen 500 Mg Tablet) 1,000 mg PO ONCE ONE Stop: 03/18/25 17:59 Last Admin: 03/18/25 18:19 Dose: 1,000 mg Documented By: SHAMIR Comments: Furosemide (Furosemide Inj 40 Mg/4 Ml Vial) 40 mg IV PUSH ONCE STA Stop: 03/18/25 15:28 Last Admin: 03/18/25 16:51 Dose: 40 mg Documented By: SHAMIR Ceftriaxone Sodium 1 gm/ (Sodium Chloride) 50 mls @ 100 mls/hr IVPB ONCE ONE Stop: 03/18/25 23:04 Last Infusion: 03/18/25 23:21 Dose: Infused Documented By: Admin: 03/18/25 22:51 Dose: 100 mls/hr Documented By: GEORGIA Sterile Water (Water For Irrigation, Sterile 500 Ml Bottle) Confirm Administered Dose 500 ml .ROUTE .STK-MED ONE Stop: 03/18/25 23:24 Last Admin: 03/18/25 23:24 Dose: 500 ml Documented By: JERICA Comments: used for CPAP Notes 03/18/25 21:08 Nurse Note by Lizz Segura 2049--patient transferred from ED stretcher to floor unit bed using inflated air mattress. Patient tolerated well. Moved from room 5 into room 6 Initialized on 03/18/25 21:08 - END OF NOTE Interventions/Assessments IV / Saline Lock, Insert Start: 03/18/25 12:36 Freq: Status: Active Protocol: Document 03/18/25 13:52 TLB (Rec: 03/18/25 13:52 TLB [id number]) IV Assessment Peripheral Access Left Forearm IV Catheter Access Initiated IV Insertion Date 03/18/25 IV Insertion Time 13:52 Catheter Gauge 18 IV Insertion 1 Attempts IV Site Assessment WNL IV Care and WNL,Access Locked Maintenance PA: Cardiovascular Assessment Start: 03/18/25 12:36 Freq: Status: Active Protocol: Document 03/18/25 13:53 TLB (Rec: 03/18/25 13:54 TLB [id number]) Cardiovascular Assessment Cardiovascular Dyspnea Symptoms Skin Description Normal Color Jugular Vein None Distention PA: Neurological Assessment Start: 03/18/25 12:36 Freq: Status: Active Protocol: Document 03/18/25 13:53 TLB (Rec: 03/18/25 13:54 TLB [id number]) Neurological Assessment Level of Alert Consciousness Arousable to Verbal Orientation Oriented to Person Neurological None Symptoms Hallucination Type None Behavior Appropriate,Cooperative Patient Able to Comprehend Comprehension Memory Description Intact Ability to Maintain Impaired Balance Facial Symmetry Symmetrical Speech Pattern Clear Ability to Swallow Normal Tongue Position Midline Hamilton Coma Scale Eyes Open Verbal Oriented and Alert Motor Follows Commands Brian Coma Total 15 Score Last Vital Signs Temperature 97.9 F 03/18/25 12:57 Pulse Rate 73 03/18/25 23:00 Respiratory Rate 18 03/18/25 23:00 Pulse Oximetry 97 03/18/25 23:00 Blood Pressure 113/55 L 03/18/25 23:00 Blood Pressure Mean 74 03/18/25 23:00 Oxygen Delivery Room Air 03/18/25 13:23 Weight 161 kg 03/18/25 21:05 Last Result - Abnormals Only WBC 10.4 K/mm3 (4.5-10.0) H 03/18/25 13:50 RBC 4.33 M/mm3 (4.6-6.20) L 03/18/25 13:50 Hgb 10.8 g/dL (14.0-18.0) L 03/18/25 13:50 Hct 37.5 % (42.0-52.0) L 03/18/25 13:50 MCH 24.9 pg (26-34) L 03/18/25 13:50 MCHC 28.8 g/dl (32-36) L 03/18/25 13:50 RDW 16.1 % (11.5-14.5) H 03/18/25 13:50 Plt Count 388 k/mm3 (150-375) H 03/18/25 13:50 Immature Gran % (Auto) 0.7 % (0-0.5) H 03/18/25 13:50 Neut % (Auto) 87.4 % (45.5-73.1) H 03/18/25 13:50 Lymph % (Auto) 3.5 % (18.3-44.2) L 03/18/25 13:50 Lymph # (Auto) 0.37 K/mm3 (0.9-3.2) L 03/18/25 13:50 Abs Immat Gran (auto) 0.07 K/mm3 (0.00-0.031) H 03/18/25 13:50 Absolute Neuts (auto) 9.1 K/mm3 (1.3-6.7) H 03/18/25 13:50 Sodium 131 mmol/L (137-145) L 03/18/25 13:50 Chloride 93 mmol/L (98-107) L 03/18/25 13:50 Carbon Dioxide 31 mmol/L (22-30) H 03/18/25 13:50 BUN 66 mg/dL (9-20) H 03/18/25 13:50 Creatinine 2.84 mg/dL (0.7-1.3) H 03/18/25 13:50 Estimated GFR 22 (59-) L 03/18/25 13:50 Calcium 8.2 mg/dL (8.4-10.2) L 03/18/25 13:50 Troponin I 0.061 ng/mL (0.000-0.034) H* 03/18/25 22:26 NT-Pro-B Natriuret Pep 65794 pg/mL (19.9-100) H 03/18/25 13:50 Total Protein 5.7 g/dL (6.3-8.2) L 03/18/25 13:50 Albumin 3.2 g/dL (3.5-5.1) L 03/18/25 13:50 Leukocyte Esterase Rfl 3+ KEITH/UL (Negative) H 03/18/25 15:02 Urine RBC 3-5 /hpf (0-2) H 03/18/25 15:02 Urine WBC >100 /hpf (0-3) H 03/18/25 15:02 Most Recent Suicide Severity Rating Suicide Severity Rating NO RISK INDICATED 03/18/25 13:23
--- NOTE | 2025-03-19 01:00 | ADMGEN ---
This patient, Irwin Cyr Jr., was admitted to IMU Room 214-01. Patient/family oriented to hospital policies and general routines including ID bracelet, bed and alarms, visiting hours, pain management, procedures, bathroom and other care routines, personal items, smoking policy, room service/diet, and visiting hours. Information on how to activate the Rapid Response Team has been discussed. Patient/Family are encouraged to report perceived risks to care and to ask questions if they do not understand what they are told or what they should do.
[2025-03-19 04:54] LABS: Hematocrit 33.8 % (42.0-52.0); Hemoglobin 9.6 g/dL (14.0-18.0); Mean Corpuscular HGB Conc 28.4 g/dl (32-36); Mean Corpuscular Hemoglobin 24.8 pg (26-34); Mean Corpuscular Volume 87.3 fl (80-100); Platelet Count Result 302 k/mm3 (150-375); Red Blood Count 3.87 M/mm3 (4.6-6.20); White Blood Count 8.3 K/mm3 (4.5-10.0)
[2025-03-19 05:17] LABS: Anion Gap 4 mmol/L (4-12); Blood Urea Nitrogen 65 mg/dL (9-20); Calcium 7.9 mg/dL (8.4-10.2); Carbon Dioxide 31 mmol/L (22-30); Chloride 94 mmol/L (98-107); Estimated CRCL calculation 33 ml/min; Estimated Glomerular Filt Rate 23; Glucose 92 mg/dL (65-110); Potassium 3.1 mmol/L (3.4-5.0); Sodium 129 mmol/L (137-145)
[2025-03-19 05:24] LABS: Troponin I 0.065 ng/mL (0.000-0.034)
[2025-03-19] MEDS: LEVOTHYROXINE SODIUM 100 MCG TABLET 200 MCG PO (05:45)
[2025-03-19] MEDS: ACETAMINOPHEN 500 MG TABLET PO ×3 (05:46→20:27)
[2025-03-19] MEDS: SPIRONOLACTONE 25 MG TABLET PO (08:44)
[2025-03-19] MEDS: METOPROLOL TARTRATE 50 MG TAB PO ×2 (08:44→20:24)
[2025-03-19] MEDS: FERROUS SULFATE 325 MG TABLET PO ×2 (08:44→17:24)
[2025-03-19] MEDS: GABAPENTIN 300 MG CAPSULE PO ×3 (08:44→17:24)
[2025-03-19] MEDS: TAMSULOSIN HCL 0.4 MG CAPSULE PO (08:44)
[2025-03-19] MEDS: FAMOTIDINE 20 MG TABLET PO ×2 (08:44→17:24)
[2025-03-19] MEDS: APIXABAN 5 MG TABLET PO ×2 (08:45→20:24)
[2025-03-19] MEDS: POTASSIUM CHLORIDE 20 MEQ ER TABLET PO ×3 (08:45→17:24)
[2025-03-19] MEDS: BUMETANIDE INJ 1 MG/4 ML VIAL IV PUSH ×3 (08:45→17:25)
[2025-03-19] MEDS: EUCERIN CREAM 120 GM JAR 1 APPLIC TOPICAL (08:45)
[2025-03-19] MEDS: DOCUSATE SODIUM 100 MG CAPSULE PO ×2 (08:45→20:24)
[2025-03-19] MEDS: acetaZOLAMIDE TAB 250 MG TABLET PO (08:45)
--- NOTE | 2025-03-19 09:03 | PM.IMPN2 ---
Assessment and Plan Assessment and Plan (1) Acute on chronic diastolic heart failure: Code(s): I50.33 - Acute on chronic diastolic (congestive) heart failure Status: Acute Assessment and Plan: -echo on 12/17/2024 was read as left ventricular systolic function is normal estimated at 65-70, left ventricular diastolic function is abnormal. -patient 2+ the 3+ pitting edema to left lower extremity. -IV Bumex has been ordered. The patient got a dose of Lasix in the emergency room. Monitor renal function closely. Continue with potassium supplement as well. -continue with Aldactone. -continue with Zaroxolyn -cardiology consulted prior- awaiting recommendations (2) Cardiac enzymes elevated: Code(s): R74.8 - Abnormal levels of other serum enzymes Status: Acute Assessment and Plan: -cardiology has been consulted. -troponin 0.057, 0.061. Repeat troponin in the a.m.. -the patient is not short of breath or having any chest pain. -this could be related to his CHF and are chronic renal failure. (3) UTI (urinary tract infection): Code(s): N39.0 - Urinary tract infection, site not specified Status: Acute Assessment and Plan: -he was started on Rocephin. -blood and urine cultures are pending (4) Atrial fibrillation: Qualifiers: Atrial fibrillation type: longstanding persistent Qualified Code(s): I48.11 - Longstanding persistent atrial fibrillation Code(s): I48.91 - Unspecified atrial fibrillation Status: Chronic Assessment and Plan: -the patient is currently in sinus rhythm. -continue with Eliquis -continue with metoprolol -rate is controlled at this time. - bleeding precautions (5) Venous stasis dermatitis: Code(s): I87.2 - Venous insufficiency (chronic) (peripheral) Status: Acute Assessment and Plan: -continue with lanolin oil patient has a right [id number] amputation that is fairly new from a couple months ago. (6) Peripheral vascular disease: Code(s): I73.9 - Peripheral vascular disease, unspecified Status: Acute Assessment and Plan: -the patient is on apixaban. (7) Dyslipidemia: Code(s): E78.5 - Hyperlipidemia, unspecified Status: Acute Assessment and Plan: -continue with home medications. The patient does not appear to be on any statins for unknown reasons. (8) Hypothyroidism: Qualifiers: Hypothyroidism type: acquired Qualified Code(s): E03.9 - Hypothyroidism, unspecified Code(s): E03.9 - Hypothyroidism, unspecified Status: Chronic Assessment and Plan: -continue with levothyroxine (9) CKD (chronic kidney disease) stage 3, GFR 30-59 ml/min: Qualifiers: Chronic kidney disease stage 3 subtype: stage 3b (GFR 30-44) Qualified Code(s): N18.32 - Chronic kidney disease, stage 3b Code(s): N18.3 - Chronic kidney disease, stage 3 (moderate) Status: Acute Assessment and Plan: -creatinine 2.84 which is slightly above his baseline of 1.9-2.8. His GFR is 22 which is slightly lower than his baseline of 31-34 -monitor BMP daily. -may consider Nephrology consult if labs worsen with diuretics. (10) Anemia of chronic disease: Code(s): D63.8 - Anemia in other chronic diseases classified elsewhere Status: Acute Assessment and Plan: -the patient is slightly above his baseline. This appears to be stable. Most likely secondary to his chronic renal failure. - monitor (11) AMELIA (obstructive sleep apnea): Code(s): G47.33 - Obstructive sleep apnea (adult) (pediatric) Status: Chronic Assessment and Plan: The patient brought his own CPAP machine, he may continue to use this . (12) Gout: Qualifiers: Chronicity: chronic Gout etiology: unspecified cause Gout site: multiple sites Qualified Code(s): M1A.09X0 - Idiopathic chronic gout, multiple sites, without tophus (tophi) Code(s): M10.9 - Gout, unspecified Status: Acute (13) Rosacea: Code(s): L71.9 - Rosacea, unspecified Status: Acute Plan The patient has chronic hyponatremia. Most likely secondary to his CHF with 3rd spacing. Medical Record Review I have reviewed the following patient records and this information was taken into consideration when formulating the assessment and plan.: previous labs Time Spent With Patient Time with patient: 25 - 35 minutes Subjective Date/time seen: 03/19/25 09:03 Interval history: This is a 75-year-old male patient who has a history of chronic kidney disease, peripheral edema, congestive heart failure, atrial fibrillation anticoagulated with Eliquis, hypertension, hyperlipidemia, and right ymtbg-fzq-auwy amputation. The patient stated he was too weak today to move from his hospital bed at home to his motorized scooter with a slide board. He also noticed increased swelling to his scrotum as well. He denies any chest pain or shortness of breath at this time. Chest x-ray was read as no acute cardiopulmonary findings given portable technique. White count was noted to be 10.4. H&H is 10.8 in 37.5 which is above his baseline. Sodium level is at his baseline of 131, creatinine 2.84 which is slightly above his baseline of 1.9-2.8. His GFR is 22 which is slightly lower than his baseline of 31-35. His troponin is 0.057. BNP 65773 with a previous level of 11,600. Urine has 3+ leukocyte esterase urine rbc's 3-5 and WBCs greater than 100. The patient was given Lasix and Tylenol in the emergency room. The patient is being admitted to IMU inpatient status on the date of service of 03/18/2025. Pt is seen and examined this morning. Cardiology consulted. He is c/o baldder spasm. Review of Systems Constitutional: Constitutional: Reports as per HPI and Reports no additional constitutional complaints Eyes: Eyes: Reports as per HPI and Reports no additional eye complaints ENT: Reports system reviewed and no additional complaints, except as documented and Reports Normal hearing present Cardiovascular: Cardiovascular: Reports no additional cardiovascular complaints Respiratory: Respiratory: Reports as per HPI and Reports no additional respiratory complaints Gastrointestinal: Gastrointestinal: Reports as per HPI and Reports no additional gastrointestinal complaints Musculoskeletal: Musculoskeletal: Reports no additional musculoskeletal complaints Integumentary/Breasts: Skin/Breast: Reports system reviewed and no additional complaints, except as docu Neurologic: Reports system reviewed and no additional complaints, except as documented and Reports Normal hearing present Psychiatric: Psychiatric: Reports no additional psychiatric complaints and Reports as per HPI Hematologic/Lymphatic: Hematologic/Lymphatic: Reports no additional hematologic/lymphatic complaints Allergic/Immunologic: Allergic/Immunologic: Reports no additional allergic/immunologic complaints Exam Const: General: cooperative, comfortable, no acute distress, well developed, awake, Physically active, average body habitus and well nourished Nutritional Appearance: average body habitus and well nourished Orientation/consciousness: oriented to person, oriented to place, oriented to time and patient oriented x3 Limitations: no limitations HENMT: Head: normal to inspection, No palpable skull fracture present, normocephalic, atraumatic and abrasion Ears: hearing grossly normal bilaterally Eyes: General: appearance normal, both eyes and all related structures Alignment and Position: alignment normal Periorbital: periorbital findings normal Eyelids: eyelids normal Neck: Neck: normal visual inspection, full ROM and no lymphadenopathy Chest: Chest palpation & inspection: normal inspection of the chest Resp: Effort & Inspection: normal respiratory effort Auscultation: clear to auscultation bilaterally Cardio: Palpation: normal PMI Rate: regular rate Rhythm: regular rhythm Heart sounds: S1 normal heart sound present and S2 normal heart sound present GI: Inspection: normal to inspection : General: Yes no CVA tenderness Back/Spine/Pelvis: Back: no CVA tenderness Cervical Spine: cervical ROM normal Skin: General skin exam: normal color Lesions: no lesions Rashes: no rashes Trauma: no lacerations or abrasions Wounds: no wounds Hair: normal Nails: normal Neuro: General: oriented to person, oriented to place, oriented to time and patient oriented x3 Cranial nerves: Yes Normal hearing present Cognition (Neuro): normal cognition Speech: normal speech Extrem: General: normal to inspection Right upper extremity: normal to inspection and shoulder/upper arm Left upper extremity: normal to inspection and shoulder/upper arm Psych: Appearance: grossly normal Mental Status: mental status grossly normal Speech and movement: Normal speech and movement present Affect: normal affect Attitude: cooperative Thought process: Normal thought process present Insight: Good insight present (Psych) Judgement: Good judgement present (Psych) Objective Data Vital Signs Vital Signs: Vital Signs - 24 hr 03/18/25 12:57 03/18/25 13:23 03/18/25 13:30 Temperature 97.9 F Pulse Rate 71 78 71 Respiratory Rate 16 16 16 Blood Pressure 109/46 L 134/54 L 127/30 L Pulse Oximetry 95 97 99 Oxygen Delivery Room Air 03/18/25 14:00 03/18/25 15:03 03/18/25 16:30 Temperature Pulse Rate 72 82 83 Respiratory Rate 17 17 18 Blood Pressure 141/56 H 135/62 125/63 Pulse Oximetry 97 98 98 Oxygen Delivery 03/18/25 17:15 03/18/25 18:45 03/18/25 20:15 Temperature Pulse Rate 84 73 73 Respiratory Rate 17 18 18 Blood Pressure 148/71 H 135/67 123/58 L Pulse Oximetry 100 97 98 Oxygen Delivery 03/18/25 21:00 03/18/25 22:00 03/18/25 23:00 Temperature Pulse Rate 73 73 73 Respiratory Rate 19 17 18 Blood Pressure 103/51 L 122/57 L 113/55 L Pulse Oximetry 98 96 97 Oxygen Delivery 03/19/25 00:00 03/19/25 00:35 03/19/25 00:51 Temperature 96.9 F L Pulse Rate 76 76 77 Respiratory Rate 16 16 16 Blood Pressure 101/51 L 105/44 L Pulse Oximetry 97 99 99 Oxygen Delivery Autopap 03/19/25 01:06 03/19/25 02:00 03/19/25 04:00 Temperature 97.7 F Pulse Rate 73 76 73 Respiratory Rate 16 Blood Pressure 126/57 L Pulse Oximetry 99 99 Oxygen Delivery Autopap 03/19/25 04:00 03/19/25 04:00 03/19/25 06:00 Temperature Pulse Rate 74 74 78 Respiratory Rate 16 Blood Pressure Pulse Oximetry 99 Oxygen Delivery Autopap 03/19/25 08:00 Temperature 97.7 F Pulse Rate 71 Respiratory Rate 22 H Blood Pressure 126/44 L Pulse Oximetry 94 Oxygen Delivery Intake/Output Intake/Output: Intake & Output 03/16/25 03/17/25 03/18/25 03/19/25 23:59 23:59 23:59 23:59 Intake Total 50 Output Total 875 250 Balance -825 -250 Meds/Results Medications: Active Medications Generic Name Dose Route Start Last Admin Trade Name Alanis PRN Reason Stop Dose Admin Acetaminophen 500 mg 03/18/25 22:39 03/19/25 05:46 Acetaminophen 500 Mg Tablet PO 500 mg Q6H PRN Administration fever or pain Acetazolamide 250 mg 03/19/25 08:00 Acetazolamide Tab 250 Mg Tablet PO DAILY@0800 [facility] Allopurinol 100 mg 03/19/25 08:00 Allopurinol 100 Mg Tablet PO DAILY@0800 [facility] Apixaban 5 mg 03/18/25 22:45 03/18/25 23:20 Apixaban 5 Mg Tablet PO 5 mg Q12HR [facility] Administration Bumetanide 1 mg 03/19/25 09:00 Bumetanide Inj 1 Mg/4 Ml Vial IV PUSH TID [facility] Calcitriol 0.25 mcg 03/19/25 09:00 Calcitriol 0.25 Mcg Capsule PO MoWeFr [facility] Docusate Sodium 100 mg 03/19/25 09:00 Docusate Sodium 100 Mg Capsule PO Q12HR [facility] Ergocalciferol 1,250 mcg 03/22/25 09:00 Ergocalciferol (Vitamin D2) 1,250 Mcg (50,000 Units) Capsule PO WEEKLY [facility] Famotidine 20 mg 03/18/25 22:45 03/18/25 23:20 Famotidine 20 Mg Tablet PO 20 mg BID ANGELA Administration Ferrous Sulfate 325 mg 03/19/25 09:00 Ferrous Sulfate 325 Mg Tablet PO BID [facility] Fluticasone Propionate 1 spray 03/18/25 22:39 Fluticasone Propionate 0.05% Na Spr 16 Gm Btl (*Bkc) NASAL DAILY PRN Congestion Gabapentin 300 mg 03/18/25 22:45 03/18/25 23:20 Gabapentin 300 Mg Capsule PO 300 mg TID [facility] Administration Ceftriaxone Sodium 1 gm/ 50 mls @ 100 mls/hr 03/19/25 21:00 Sodium Chloride IVPB Q24H [facility] Levothyroxine Sodium 200 mcg 03/19/25 06:30 03/19/25 05:45 Levothyroxine Sodium 100 Mcg Tablet PO 200 mcg DAILY@0630 [facility] Administration Metolazone 2.5 mg 03/19/25 09:00 Metolazone 2.5 Mg Tablet PO MoWeFr [facility] Metoprolol Tartrate 50 mg 03/19/25 09:00 Metoprolol Tartrate 50 Mg Tab PO Q12HR [facility] Minoxidil 2.5 mg 03/19/25 09:00 Minoxidil 2.5 Mg Tablet PO DAILY [facility] Multi-Ingred Cream/Lotion/Oil/Oint 1 applic 03/19/25 09:00 Eucerin Cream 120 Gm Jar TOPICAL DAILY [facility] Polyethylene Glycol 17 gm 03/18/25 22:39 Polyethylene Glycol 3350 17 Gm Powd.Pack PO DAILY PRN Constipation Potassium Chloride 20 meq 03/19/25 08:00 Potassium Chloride 20 Meq Er Tablet PO TIDWM [facility] Spironolactone 25 mg 03/19/25 09:00 Spironolactone 25 Mg Tablet PO DAILY [facility] Tamsulosin HCl 0.4 mg 03/19/25 09:00 Tamsulosin Hcl 0.4 Mg Capsule PO [facility] Radiology Results: ITS Impressions Chest X-Ray 03/18/25 13:29 IMPRESSION: 1. No acute cardiopulmonary findings given portable technique. Consider PA and lateral films with deep inspiration. Labs Labs: Laboratory Results - last 24 hr 03/18/25 03/18/25 03/18/25 13:50 15:02 16:50 WBC 10.4 H RBC 4.33 L Hgb 10.8 L Hct 37.5 L MCV 86.6 MCH 24.9 L MCHC 28.8 L RDW 16.1 H Plt Count 388 H MPV 9.9 Immature Gran % (Auto) 0.7 H Neut % (Auto) 87.4 H Lymph % (Auto) 3.5 L Mcculloch % (Auto) 6.1 Eos % (Auto) 1.7 Baso % (Auto) 0.6 Lymph # (Auto) 0.37 L Mcculloch # (Auto) 0.6 Eos # (Auto) 0.2 Baso # (Auto) 0.1 Abs Immat Gran (auto) 0.07 H Absolute Neuts (auto) 9.1 H Absolute Nucleated RBC 0.000 Band Neutrophils % Not Reportable Nucleated RBC % 0.0 Platelet Estimate Adequate Polychromasia Occasional Hypochromasia Occasional Anisocytosis 1+ Ovalocytes 1+ Schistocytes None seen Sodium 131 L Potassium 3.5 Chloride 93 L Carbon Dioxide 31 H Anion Gap 7 BUN 66 H Creatinine 2.84 H Estim Creat Clear Calc 33 Estimated GFR 22 L Glucose 94 Calcium 8.2 L Total Bilirubin 0.5 AST 22 ALT 9 Alkaline Phosphatase 58 Lactate Dehydrogenase Troponin I 0.057 H* Cancelled NT-Pro-B Natriuret Pep 34236 H Total Protein 5.7 L Albumin 3.2 L Urine Color Yellow Urine Appearance Clear Urine pH 7.0 Ur Specific Parker 1.011 Urine Protein Negative Urine Glucose (UA) Negative Urine Ketones Negative Ur Blood (Man) Non-hemolyzed trace Urine Nitrate Negative Urine Bilirubin Negative Urine Urobilinogen 1.0 Leukocyte Esterase Rfl 3+ H Urine RBC 3-5 H Urine WBC >100 H Ur Squamous Epith Cells None seen Urine Bacteria None seen Urine Casts 0-2 03/18/25 03/18/25 03/19/25 19:50 22:26 04:32 WBC 8.3 RBC 3.87 L Hgb 9.6 L Hct 33.8 L MCV 87.3 MCH 24.8 L MCHC 28.4 L RDW 15.9 H Plt Count 302 MPV 9.6 Immature Gran % (Auto) Neut % (Auto) Lymph % (Auto) Mcculloch % (Auto) Eos % (Auto) Baso % (Auto) Lymph # (Auto) Mcculloch # (Auto) Eos # (Auto) Baso # (Auto) Abs Immat Gran (auto) Absolute Neuts (auto) Absolute Nucleated RBC Band Neutrophils % Nucleated RBC % Platelet Estimate Polychromasia Hypochromasia Anisocytosis Ovalocytes Schistocytes Sodium 129 L Potassium 3.1 L Chloride 94 L Carbon Dioxide 31 H Anion Gap 4 BUN 65 H Creatinine 2.68 H Estim Creat Clear Calc 33 Estimated GFR 23 L Glucose 92 Calcium 7.9 L Total Bilirubin AST ALT Alkaline Phosphatase Lactate Dehydrogenase 119 L Troponin I Cancelled 0.061 H* 0.065 H* NT-Pro-B Natriuret Pep Total Protein Albumin Urine Color Urine Appearance Urine pH Ur Specific Parker Urine Protein Urine Glucose (UA) Urine Ketones Ur Blood (Man) Urine Nitrate Urine Bilirubin Urine Urobilinogen Leukocyte Esterase Rfl Urine RBC Urine WBC Ur Squamous Epith Cells Urine Bacteria Urine Casts Quality VTE Prophylaxis VTE prophylaxis: pharmacologic ordered
--- NOTE | 2025-03-19 10:13 | PM.CNCAR ---
Assessment and Plan Assessment and plan (1) Acute on chronic diastolic heart failure: Code(s): I50.33 - Acute on chronic diastolic (congestive) heart failure Status: Acute (2) Benign hypertension with chronic kidney disease: Code(s): I12.9 - Hypertensive chronic kidney disease with stage 1 through stage 4 chronic kidney disease, or unspecified chronic kidney disease Status: Chronic (3) Essential (primary) hypertension: Code(s): I10 - Essential (primary) hypertension Status: Chronic (4) Atrial fibrillation: Qualifiers: Atrial fibrillation type: longstanding persistent Qualified Code(s): I48.11 - Longstanding persistent atrial fibrillation Code(s): I48.91 - Unspecified atrial fibrillation Status: Chronic (5) Cardiac enzymes elevated: Code(s): R74.8 - Abnormal levels of other serum enzymes Status: Acute Plan 75 y/o male with Acute on chronic diastolic heart failure; reduced RV systolic function Elevated troponin without chest pain secondary to acute heart failure A fib without RVR PVD s/p R BKA HTN HLD CKD Morbid obesity Plan: IV diuresis with bumex qmg TID Continue metolazone and spironolactone at home dose Continue metoprolol 50mg po daily Continue Eliquis for anticoagulation for A fib/flutter Elevated troponin (but flat) without chest pain is most likely secondary to acute heart failure (supply demand mismatch). Trend to peak Check weight, ins and outs, and renal function daily Check and replace electrolytes to keep K>4 and Mg>2 Monitor on telemetry Add empagliflozin 10 mg daily History of Present Illness History of Present Illness Consult date/time: 03/19/25 10:13 Reason For Visit: CHF Exacerbation/NSTEMI Narrative: 75 y/o male with PMH of a fib on chronic anticoagulation with Eliquis, diastolic heart failure, HTN, HLD, PVD, R BKA, morbid obesity, CKD, anemia of chronic disease, lyphedema of lower extremity, gout, AMELIA, GERD presets with CC of weakness. Patient was too weak to transfer from his hospital bed at home to his motorized scooter with a slide board. He has increased swelling to his scrotum. His legs are more swollen and weeping. No any chest pain, shortness of breath, dizziness, LH, palpitations, pre syncope, syncope. Cardiology is consulted for further recommendations for congestive heart failure. Work up: Creatinine 2.84 (baseline of 1.9-2.8) Troponin 0.057, 0.061, 0.065 BNP 51922 EKG: A flutter, RBBB CXR: no acute cardiopulmonary findings Past workup: TTE 11/2024: LVEF 65-70%, RV systolic function is reduced, D-shaped septum consistent with right ventricular pressure and volume overload, PASP 40mm Hg, no significant valvular pathology Review of Systems Review of Systems: A complete review of systems was performed and pertinent positives are reported in the HPI. [facility] Past Medical History Medical History (Updated 03/18/25 @ 23:09 by Fabby Boss APRN) Anemia of chronic disease CKD (chronic kidney disease) CHF (congestive heart failure) History of chronic CHF Lymphedema of lower extremity Iron deficiency anemia Right foot infection s/p BKA(08/23) Venous stasis ulcer of right lower extremity Lymphedema due to chronic inflammation Constipation Stercoral ulcer of rectum Fecal impaction Proctitis Hyponatremia Peripheral vascular disease Morbid obesity with body mass index (BMI) of 40.0 or higher Neuropathic pain Gout Sepsis Chronic acquired lymphedema Chronic anemia Obstructive sleep apnea Atrial fibrillation Lymphedema of both lower extremities Environmental allergies Ocular rosacea Rosacea Chronic low back pain Chronic venous insufficiency GERD without esophagitis Chronic congestive heart failure Echocardiogram in May 2021 was technically difficult and showed normal LV systolic function with an EF of 60 to 65%, severely enlarged RV chamber with moderate to severely reduced RV systolic function, severe biatrial enlargement, and moderate pulmonary hypertension. Dyslipidemia Essential (primary) hypertension Peripheral polyneuropathy Hypothyroidism Surgical History Surgical History (Updated 03/18/25 @ 22:42 by Fabby Boss APRN) History of testicular surgery At Hx of right BKA (~07/2024) S/P BKA (below knee amputation) 08/25/24 Right below-knee amputation Dr. aMlone History of carpal tunnel release History of thoracic surgery Pericardial effusion s/p pericardial window thought secondary to minoxidil, in 2010 at [facility]. H/O eye surgery (~2005) [id number] [facility] 5 surgeries for detached retina. History of foot surgery Left Foot History of cholecystectomy (2008) History of rotator cuff surgery Bilateral. History of discectomy (2012) Family History Family History Father Cardiovascular disease Grandparent Cancer Mother COPD (chronic obstructive pulmonary disease) Social History Social History (Updated 03/18/25 @ 22:43 by Fabby Boss APRN) Social History: Surrogate medical decision maker: Shyla Hurst, daughter. He has a hospital bed and electric power chair at home. He is . He has 2 daughters. He has 4 grandchildren next door who help take care oh him. 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 Code status: Full code. Caffeine-decalf coffee, diet soda Smoking packs per day: 2 Smoking cigarettes per day: 40.0 Years smoked: 20 Smoking pack-years: 40.00 Smoking status: Former smoker Second hand tobacco smoke exposure: No Additional smoking assessment comments: 1979 Alcohol intake: never Alcohol use details: One beer daily. Substance use: never Substance use type: does not use Lack of Transportation: No Lack of Food: Never True Current Housing: I Have Housing Concerned About Future Housing: No Difficulty Paying Gas/Electric Bills: No Difficulty Paying for Meds: No Currently Unemployed: No Education: High School Diploma/GED Difficulty w/ Childcare or Family Care: No Living arrangements: alone Additional living arrangements comments: Lives in own home in [place]. Uses a motorized scooter and transfers with slide board. Occupation/Education: retired Additional occupation/education comments: Retired. 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 Spiritual care concerns: No Meds Home Medications and Allergies Home Medications ?Medication ?Instructions ?Recorded ?Confirmed ?Type apixaban 5 mg tablet (Eliquis) 5 mg PO Q12HR #180 tabs 01/19/22 03/18/25 Rx calcitriol 0.25 mcg capsule 0.25 mcg PO 3XW #36 caps 10/30/23 03/18/25 Rx allopurinol 100 mg tablet 100 mg PO DAILY #10 tabs 08/04/24 03/18/25 Rx famotidine 20 mg tablet 20 mg PO BID #180 tabs 08/04/24 03/18/25 Rx minoxidil 2.5 mg tablet 2.5 mg PO DAILY 08/04/24 03/18/25 History tamsulosin 0.4 mg capsule 0.4 mg PO QAM #90 caps 08/04/24 03/18/25 Rx acetaminophen 500 mg capsule 500 mg PO Q6H PRN fever or pain 09/15/24 03/18/25 History fluticasone propionate 50 1 spray intranasal DAILY PRN 10/21/24 03/18/25 History mcg/actuation nasal Congestion spray,suspension (Flonase Allergy Relief) loratadine 10 mg tablet (Claritin) 10 mg PO DAILY allergy symptoms 10/21/24 03/18/25 History polyethylene glycol 3350 17 17 g PO DAILY 10/21/24 03/19/25 History gram/dose oral powder (Miralax) metolazone 2.5 mg tablet 2.5 mg PO .COMPLEX 12/17/24 03/18/25 History lanolin alcohols-mineral 1 applic topical DAILY #113 grams 12/29/24 03/18/25 Rx oil-w.petrolatum-ceresin topical cream (Minerin Creme topical) spironolactone 25 mg tablet 25 mg PO DAILY #30 tabs 12/29/24 03/18/25 Rx levothyroxine 200 mcg tablet 200 mcg PO DAILY #90 tabs 01/18/25 03/18/25 Rx bumetanide 1 mg tablet 1 mg PO TID 02/18/25 03/18/25 History docusate sodium 100 mg capsule 100 mg PO Q12H constipation 02/18/25 03/18/25 History potassium chloride 10 mEq 20 meq PO TID 02/18/25 03/18/25 History capsule,extended release cholecalciferol (vitamin D3) 1,250 1,250 mcg PO WEEKLY #14 caps 02/22/25 03/18/25 Rx mcg (50,000 unit) capsule gabapentin 300 mg capsule 300 mg PO TID #270 caps 03/02/25 03/18/25 Rx acetazolamide 250 mg tablet 250 mg PO DAILY@0800 03/18/25 03/18/25 History ferrous sulfate 325 mg (65 mg 325 mg PO BID #180 tabs 03/18/25 03/18/25 Rx iron) tablet metoprolol tartrate 50 mg tablet 50 mg PO DAILY@0800 03/18/25 03/18/25 History Allergies Allergy/AdvReac Type Severity Reaction Status Date / Time Sulfa (Sulfonamide Allergy Mild Rash Verified 03/19/25 01:00 Antibiotics) Penicillins Allergy Unknown SWELLING Verified 03/19/25 01:00 codeine AdvReac Mild N/V Verified 03/19/25 01:00 hydrocodone AdvReac Mild N/V Verified 03/19/25 01:00 oxycodone (From OxyContin) AdvReac Mild Nausea Verified 03/19/25 01:00 tramadol AdvReac Mild Nausea Verified 03/19/25 01:00 Vital Signs Vital Signs - 24 hr 03/18/25 12:57 03/18/25 13:23 03/18/25 13:30 Temperature 36.6 C Pulse Rate 71 78 71 Respiratory Rate 16 16 16 Blood Pressure 109/46 L 134/54 L 127/30 L Pulse Oximetry 95 97 99 Oxygen Delivery Room Air 03/18/25 14:00 03/18/25 15:03 03/18/25 16:30 Temperature Pulse Rate 72 82 83 Respiratory Rate 17 17 18 Blood Pressure 141/56 H 135/62 125/63 Pulse Oximetry 97 98 98 Oxygen Delivery 03/18/25 17:15 03/18/25 18:45 03/18/25 20:15 Temperature Pulse Rate 84 73 73 Respiratory Rate 17 18 18 Blood Pressure 148/71 H 135/67 123/58 L Pulse Oximetry 100 97 98 Oxygen Delivery 03/18/25 21:00 03/18/25 22:00 03/18/25 23:00 Temperature Pulse Rate 73 73 73 Respiratory Rate 19 17 18 Blood Pressure 103/51 L 122/57 L 113/55 L Pulse Oximetry 98 96 97 Oxygen Delivery 03/19/25 00:00 03/19/25 00:35 03/19/25 00:51 Temperature 36.1 C L Pulse Rate 76 76 77 Respiratory Rate 16 16 16 Blood Pressure 101/51 L 105/44 L Pulse Oximetry 97 99 99 Oxygen Delivery Autopap 03/19/25 01:06 03/19/25 02:00 03/19/25 04:00 Temperature 36.5 C Pulse Rate 73 76 73 Respiratory Rate 16 Blood Pressure 126/57 L Pulse Oximetry 99 99 Oxygen Delivery Autopap 03/19/25 04:00 03/19/25 04:00 03/19/25 06:00 Temperature Pulse Rate 74 74 78 Respiratory Rate 16 Blood Pressure Pulse Oximetry 99 Oxygen Delivery Autopap 03/19/25 08:00 03/19/25 08:44 Temperature 36.5 C Pulse Rate 71 72 Respiratory Rate 22 H Blood Pressure 126/44 L Pulse Oximetry 94 Oxygen Delivery Exam Narrative: General: Alert oriented x3, no acute distress Neck: Supple, JVD + Chest: Bilaterally clear to auscultation, no rales or rhonchi Cardiac: S1, S2 +, regular rate, regular rhythm, no murmurs or rubs Extremities: Bilateral lower extremity edema 1+, no skin rash Neurologic: Alert and oriented x3, no focal neurological deficits Results Labs and Meds 03/19/25 04:32 03/19/25 04:32 Lab results: Cardiac Enzymes 03/18/25 03/18/25 03/18/25 Range/Units 13:50 16:50 19:50 AST 22 (17-59) U/L Lactate Dehydrogenase (120-246) U/L Troponin I 0.057 H* Cancelled Cancelled (0.000-0.034) ng/mL 03/18/25 03/19/25 Range/Units 22:26 04:32 AST (17-59) U/L Lactate Dehydrogenase 119 L (120-246) U/L Troponin I 0.061 H* 0.065 H* (0.000-0.034) ng/mL CBC 03/18/25 03/19/25 Range/Units 13:50 04:32 WBC 10.4 H 8.3 (4.5-10.0) K/mm3 RBC 4.33 L 3.87 L (4.6-6.20) M/mm3 Hgb 10.8 L 9.6 L (14.0-18.0) g/dL Hct 37.5 L 33.8 L (42.0-52.0) % Plt Count 388 H 302 (150-375) k/mm3 Lymph # (Auto) 0.37 L (0.9-3.2) K/mm3 Howard # (Auto) 0.6 (0.1-0.6) K/mm3 Eos # (Auto) 0.2 (0-0.3) K/mm3 Baso # (Auto) 0.1 (0.0-0.1) K/mm3 Comprehensive Metabolic Panel 03/18/25 03/19/25 Range/Units 13:50 04:32 Sodium 131 L 129 L (137-145) mmol/L Potassium 3.5 3.1 L (3.4-5.0) mmol/L Chloride 93 L 94 L (98-107) mmol/L Carbon Dioxide 31 H 31 H (22-30) mmol/L BUN 66 H 65 H (9-20) mg/dL Creatinine 2.84 H 2.68 H (0.7-1.3) mg/dL Glucose 94 92 (65-110) mg/dL Calcium 8.2 L 7.9 L (8.4-10.2) mg/dL AST 22 (17-59) U/L ALT 9 (6-50) U/L Alkaline Phosphatase 58 (38-126) U/L Total Protein 5.7 L (6.3-8.2) g/dL Albumin 3.2 L (3.5-5.1) g/dL Intake and Output 03/18/25 03/19/25 03/19/25 23:59 07:59 15:59 Intake Total 50 Output Total 875 250 Balance -825 -250 Intake: IV 50 cefTRIAXone 1 gm In Sodium 50 Chloride 0.9% IV 50 ml @ 100 mls/hr IVPB ONCE ONE Rx#: [id number] Output: Catheter Urine 875 250 Urethral Catheter 875 250 Patient Weight 03/19/25 23:59 Weight 157.5 kg
[2025-03-19] MEDS: EMPAGLIFLOZIN 10 MG TABLET PO (12:41)
[2025-03-19] MEDS: HYOSCYAMINE SULFATE 0.0625 MG TABLET PO (17:24)
[2025-03-19] MEDS: cefTRIAXone 1 GM in SODIUM CHLORIDE 0.9% IV 50 ML 100 ML IVPB (20:24)
[2025-03-20] VITALS (17 sets, daily range): BP systolic 95–147; BP diastolic 41–69; PULSE 66–80; RESP 12–18; TEMP 36.3–37.5; O2SAT 97–100
[2025-03-20 04:29] LABS: Hematocrit 32.6 % (42.0-52.0); Hemoglobin 9.2 g/dL (14.0-18.0); Mean Corpuscular HGB Conc 28.2 g/dl (32-36); Mean Corpuscular Hemoglobin 24.1 pg (26-34); Mean Corpuscular Volume 85.6 fl (80-100); Platelet Count Result 296 k/mm3 (150-375); Red Blood Count 3.81 M/mm3 (4.6-6.20); White Blood Count 7.0 K/mm3 (4.5-10.0)
[2025-03-20 04:44] LABS: Anion Gap 4 mmol/L (4-12); Blood Urea Nitrogen 64 mg/dL (9-20); Calcium 7.8 mg/dL (8.4-10.2); Carbon Dioxide 31 mmol/L (22-30); Chloride 93 mmol/L (98-107); Estimated CRCL calculation 35 ml/min; Estimated Glomerular Filt Rate 25; Glucose 92 mg/dL (65-110); Potassium 3.6 mmol/L (3.4-5.0); Sodium 128 mmol/L (137-145)
--- NOTE | 2025-03-20 06:09 | PM.PNCARD ---
Progress Note: A&P Assessment and Plan (1) Acute on chronic diastolic heart failure: Code(s): I50.33 - Acute on chronic diastolic (congestive) heart failure Status: Acute (2) Chronic venous insufficiency: Code(s): I87.2 - Venous insufficiency (chronic) (peripheral) Status: Acute (3) Peripheral vascular disease: Code(s): I73.9 - Peripheral vascular disease, unspecified Status: Acute (4) Atrial fibrillation: Qualifiers: Atrial fibrillation type: longstanding persistent Qualified Code(s): I48.11 - Longstanding persistent atrial fibrillation Code(s): I48.91 - Unspecified atrial fibrillation Status: Chronic (5) Cardiac enzymes elevated: Code(s): R74.8 - Abnormal levels of other serum enzymes Status: Acute Plan 75 y/o male with Acute on chronic diastolic heart failure Reduced RV systolic function Elevated troponin without chest pain secondary to acute heart failure A fib without RVR PVD s/p R BKA HTN HLD CKD- creatinine 2.52 today Morbid obesity Plan: He is hypervolemic on exam. Continue IV diuresis with bumex qmg TID Continue metolazone and spironolactone Continue metoprolol and empagliflozin Continue Eliquis for anticoagulation for A fib/flutter Check weight, ins and outs, and renal function daily Check and replace electrolytes to keep K>4 and Mg>2 Monitor on telemetry Subjective Date/time seen: 03/20/25 06:09 Interval history: Reason for encounter: Acute diastolic heart failure Relevatn history: 75 y/o male with PMH of a fib on chronic anticoagulation with Eliquis, diastolic heart failure, HTN, HLD, PVD, R BKA, morbid obesity, CKD, anemia of chronic disease, lyphedema of lower extremity, gout, AMELIA, GERD presets with CC of weakness. Patient was too weak to transfer from his hospital bed at home to his motorized scooter with a slide board. He has increased swelling to his scrotum. His legs are more swollen and weeping. Elevated troponin and NT Pro BNP. EKG A flutter and RBBB. CXR with no acute cardiopulmonary pathology. Last TTE in 11/2024 showed LVEF 65-70%, RV systolic function is reduced, D-shaped septum consistent with right ventricular pressure and volume overload, PASP 40mm Hg, no significant valvular pathology. Cardiology is consulted for further recommendations for congestive heart failure. Interval history: Remains fluid overloaded. He denies any chest pain or SOB. Review of Systems Cardiovascular: Comments: As per HPI Respiratory: Comments: As per HPI Exam Narrative: General: Alert oriented x3, no acute distress Neck: Supple, JVD + Chest: Bilateral clear to auscultation, no rales or rhonchi Cardiac: S1, S2 +, regular rate, regular rhythm, no murmurs or rubs Extremities: R BKA with stump swelling, LLE swelling 3+, no skin rash Neurologic: Alert and oriented x3, no focal neurological deficits Objective Data Vital Signs Vital Signs: Vital Signs - 24 hr 03/19/25 08:00 03/19/25 08:00 03/19/25 08:00 Temperature 36.5 C Pulse Rate 71 72 71 Respiratory Rate 22 H 22 H Blood Pressure 126/44 L Pulse Oximetry 94 94 Oxygen Delivery Room Air 03/19/25 08:44 03/19/25 10:00 03/19/25 11:39 Temperature 36.8 C Pulse Rate 72 71 71 Respiratory Rate 20 Blood Pressure 104/40 L Pulse Oximetry 95 Oxygen Delivery 03/19/25 12:00 03/19/25 12:00 03/19/25 14:00 Temperature Pulse Rate 71 71 80 Respiratory Rate 20 Blood Pressure Pulse Oximetry 95 Oxygen Delivery Room Air 03/19/25 15:49 03/19/25 16:00 03/19/25 16:00 Temperature 36.4 C L Pulse Rate 71 71 71 Respiratory Rate 20 20 Blood Pressure 127/48 L Pulse Oximetry 96 96 Oxygen Delivery Room Air 03/19/25 20:00 03/19/25 20:00 03/19/25 20:00 Temperature 36.9 C Pulse Rate 75 72 72 Respiratory Rate 18 18 Blood Pressure 113/60 Pulse Oximetry 97 97 Oxygen Delivery Room Air 03/19/25 20:24 03/19/25 22:00 03/19/25 23:11 Temperature Pulse Rate 72 76 Respiratory Rate Blood Pressure Pulse Oximetry Oxygen Delivery Autopap 03/19/25 23:43 03/20/25 00:00 03/20/25 00:00 Temperature 37.0 C Pulse Rate 70 71 71 Respiratory Rate 18 18 Blood Pressure 115/49 L Pulse Oximetry 99 99 Oxygen Delivery Room Air 03/20/25 02:00 03/20/25 03:42 03/20/25 04:00 Temperature 36.8 C Pulse Rate 68 80 70 Respiratory Rate 18 18 Blood Pressure 147/69 H Pulse Oximetry 98 98 Oxygen Delivery Room Air 03/20/25 04:00 Temperature Pulse Rate 70 Respiratory Rate Blood Pressure Pulse Oximetry Oxygen Delivery Intake/Output Intake/Output: Intake & Output 03/17/25 03/18/25 03/19/25 03/20/25 23:59 23:59 23:59 23:59 Intake Total 50 1170 Output Total 875 2950 350 Balance -825 -1780 -350 Meds/Results Medications: Active Medications Generic Name Dose Route Start Last Admin Trade Name Freq PRN Reason Stop Dose Admin Acetaminophen 500 mg 03/18/25 22:39 03/19/25 20:27 Acetaminophen 500 Mg Tablet PO 500 mg Q6H PRN Administration fever or pain Acetazolamide 250 mg 03/19/25 08:00 03/19/25 08:45 Acetazolamide Tab 250 Mg Tablet PO 250 mg DAILY@0800 ANGELA Administration Allopurinol 100 mg 03/19/25 08:00 03/19/25 08:45 Allopurinol 100 Mg Tablet PO 100 mg DAILY@0800 ANGELA Administration Apixaban 5 mg 03/18/25 22:45 03/19/25 20:24 Apixaban 5 Mg Tablet PO 5 mg Q12HR ANGELA Administration Bumetanide 1 mg 03/19/25 09:00 03/19/25 17:25 Bumetanide Inj 1 Mg/4 Ml Vial IV PUSH 1 mg TID ANGELA Administration Calcitriol 0.25 mcg 03/19/25 09:00 03/19/25 08:44 Calcitriol 0.25 Mcg Capsule PO 0.25 mcg MoWeFr ANGELA Administration Docusate Sodium 100 mg 03/19/25 09:00 03/19/25 20:24 Docusate Sodium 100 Mg Capsule PO 100 mg Q12HR ANGELA Administration Empagliflozin 10 mg 03/19/25 10:35 03/19/25 12:41 Empagliflozin 10 Mg Tablet PO 10 mg DAILY ANGELA Administration Ergocalciferol 1,250 mcg 03/22/25 09:00 Ergocalciferol (Vitamin D2) 1,250 Mcg (50,000 Units) Capsule PO WEEKLY [facility] Famotidine 20 mg 03/18/25 22:45 03/19/25 17:24 Famotidine 20 Mg Tablet PO 20 mg BID ANGELA Administration Ferrous Sulfate 325 mg 03/19/25 09:00 03/19/25 17:24 Ferrous Sulfate 325 Mg Tablet PO 325 mg BID ANGELA Administration Fluticasone Propionate 1 spray 03/18/25 22:39 Fluticasone Propionate 0.05% Na Spr 16 Gm Btl (*Bkc) NASAL DAILY PRN Congestion Gabapentin 300 mg 03/18/25 22:45 03/19/25 17:24 Gabapentin 300 Mg Capsule PO 300 mg TID ANGELA Administration Hyoscyamine 0.0625 mg 03/19/25 13:48 03/19/25 17:24 Hyoscyamine Sulfate 0.0625 Mg Tablet PO 0.0625 mg Q4H PRN Administration Bladder Spasm Ceftriaxone Sodium 1 gm/ 50 mls @ 100 mls/hr 03/19/25 21:00 03/19/25 20:55 Sodium Chloride IVPB Infused Q24H ANGELA Infusion Levothyroxine Sodium 200 mcg 03/19/25 06:30 03/19/25 05:45 Levothyroxine Sodium 100 Mcg Tablet PO 200 mcg DAILY@0630 ANGELA Administration Metolazone 2.5 mg 03/19/25 09:00 03/19/25 08:45 Metolazone 2.5 Mg Tablet PO 2.5 mg MoWeFrSa [facility] Administration Metoprolol Tartrate 50 mg 03/19/25 09:00 03/19/25 20:24 Metoprolol Tartrate 50 Mg Tab PO 50 mg Q12HR ANGELA Administration Minoxidil 2.5 mg 03/19/25 09:00 03/19/25 08:45 Minoxidil 2.5 Mg Tablet PO 2.5 mg DAILY ANGELA Administration Multi-Ingred Cream/Lotion/Oil/Oint 1 applic 03/19/25 09:00 03/19/25 08:45 Eucerin Cream 120 Gm Jar TOPICAL 1 applic DAILY [facility] Administration Oxybutynin Chloride 5 mg 03/19/25 12:30 03/19/25 20:27 Oxybutynin Chloride 5 Mg Tablet PO 5 mg TID PRN Administration Bladder Spasm Polyethylene Glycol 17 gm 03/20/25 09:00 Polyethylene Glycol 3350 17 Gm Powd.Pack PO DAILY [facility] Potassium Chloride 20 meq 03/19/25 08:00 03/19/25 17:24 Potassium Chloride 20 Meq Er Tablet PO 20 meq TIDWM ANGELA Administration Spironolactone 25 mg 03/19/25 09:00 03/19/25 08:44 Spironolactone 25 Mg Tablet PO 25 mg DAILY ANGELA Administration Tamsulosin HCl 0.4 mg 03/19/25 09:00 03/19/25 08:44 Tamsulosin Hcl 0.4 Mg Capsule PO 0.4 mg QAM ANGELA Administration Radiology Results: ITS Impressions Chest X-Ray 03/18/25 13:29 IMPRESSION: 1. No acute cardiopulmonary findings given portable technique. Consider PA and lateral films with deep inspiration. Labs Labs: Laboratory Results - last 24 hr 03/20/25 04:19 WBC 7.0 RBC 3.81 L Hgb 9.2 L Hct 32.6 L MCV 85.6 MCH 24.1 L MCHC 28.2 L RDW 15.9 H Plt Count 296 MPV 9.6 Sodium 128 L Potassium 3.6 Chloride 93 L Carbon Dioxide 31 H Anion Gap 4 BUN 64 H Creatinine 2.52 H Estim Creat Clear Calc 35 Estimated GFR 25 L Glucose 92 Calcium 7.8 L Lactate Dehydrogenase 119 L
[2025-03-20] MEDS: LEVOTHYROXINE SODIUM 100 MCG TABLET 200 MCG PO (06:20)
[2025-03-20] MEDS: ACETAMINOPHEN 500 MG TABLET PO ×2 (06:21→21:06)
[2025-03-20 08:54] LABS: Magnesium 2.5 mg/dL (1.6-2.3)
--- NOTE | 2025-03-20 09:25 | PM.IMPN2 ---
Assessment and Plan Assessment and Plan (1) Acute on chronic diastolic heart failure: Code(s): I50.33 - Acute on chronic diastolic (congestive) heart failure Status: Acute Assessment and Plan: -echo on 12/17/2024 was read as left ventricular systolic function is normal estimated at 65-70, left ventricular diastolic function is abnormal. -patient 2+ the 3+ pitting edema to left lower extremity. -IV Bumex has been ordered. The patient got a dose of Lasix in the emergency room. Monitor renal function closely. Continue with potassium supplement as well. -continue with Aldactone. -continue with Zaroxolyn -cardiology consulted: He is hypervolemic on exam. Continue IV diuresis with bumex qmg TID Continue metolazone and spironolactone Continue metoprolol and empagliflozin Continue Eliquis for anticoagulation for A fib/flutter Check weight, ins and outs, and renal function daily Check and replace electrolytes to keep K>4 and Mg>2 Monitor on telemetry (2) Cardiac enzymes elevated: Code(s): R74.8 - Abnormal levels of other serum enzymes Status: Acute Assessment and Plan: -cardiology has been consulted. -troponin 0.057, 0.061. Repeat troponin in the a.m.. -the patient is not short of breath or having any chest pain. -this could be related to his CHF and are chronic renal failure. (3) UTI (urinary tract infection): Code(s): N39.0 - Urinary tract infection, site not specified Status: Acute Assessment and Plan: -he was started on Rocephin. -blood and urine cultures are pending -conitunue IV antibiotics for now (4) Atrial fibrillation: Qualifiers: Atrial fibrillation type: longstanding persistent Qualified Code(s): I48.11 - Longstanding persistent atrial fibrillation Code(s): I48.91 - Unspecified atrial fibrillation Status: Chronic Assessment and Plan: -the patient is currently in sinus rhythm. -continue with Eliquis -continue with metoprolol -rate is controlled at this time. - bleeding precautions (5) Venous stasis dermatitis: Code(s): I87.2 - Venous insufficiency (chronic) (peripheral) Status: Acute Assessment and Plan: -continue with lanolin oil patient has a right [id number] amputation that is fairly new from a couple months ago. (6) Peripheral vascular disease: Code(s): I73.9 - Peripheral vascular disease, unspecified Status: Acute Assessment and Plan: -the patient is on apixaban. (7) Dyslipidemia: Code(s): E78.5 - Hyperlipidemia, unspecified Status: Acute Assessment and Plan: -continue with home medications. The patient does not appear to be on any statins for unknown reasons. (8) Hypothyroidism: Qualifiers: Hypothyroidism type: acquired Qualified Code(s): E03.9 - Hypothyroidism, unspecified Code(s): E03.9 - Hypothyroidism, unspecified Status: Chronic Assessment and Plan: -continue with levothyroxine (9) CKD (chronic kidney disease) stage 3, GFR 30-59 ml/min: Qualifiers: Chronic kidney disease stage 3 subtype: stage 3b (GFR 30-44) Qualified Code(s): N18.32 - Chronic kidney disease, stage 3b Code(s): N18.3 - Chronic kidney disease, stage 3 (moderate) Status: Acute Assessment and Plan: -creatinine 2.84 which is slightly above his baseline of 1.9-2.8. His GFR is 22 which is slightly lower than his baseline of 31-34 -monitor BMP daily. -may consider Nephrology consult if labs worsen with diuretics. (10) Anemia of chronic disease: Code(s): D63.8 - Anemia in other chronic diseases classified elsewhere Status: Acute Assessment and Plan: -the patient is slightly above his baseline. This appears to be stable. Most likely secondary to his chronic renal failure. - monitor (11) AMELIA (obstructive sleep apnea): Code(s): G47.33 - Obstructive sleep apnea (adult) (pediatric) Status: Chronic Assessment and Plan: The patient brought his own CPAP machine, he may continue to use this . (12) Gout: Qualifiers: Chronicity: chronic Gout etiology: unspecified cause Gout site: multiple sites Qualified Code(s): M1A.09X0 - Idiopathic chronic gout, multiple sites, without tophus (tophi) Code(s): M10.9 - Gout, unspecified Status: Acute (13) Rosacea: Code(s): L71.9 - Rosacea, unspecified Status: Acute Plan The patient has chronic hyponatremia. Most likely secondary to his CHF with 3rd spacing. Medical Record Review I have reviewed the following patient records and this information was taken into consideration when formulating the assessment and plan.: previous labs Time Spent With Patient Time with patient: Greater than 35 minutes Subjective Date/time seen: 03/20/25 09:25 Interval history: This is a 75-year-old male patient who has a history of chronic kidney disease, peripheral edema, congestive heart failure, atrial fibrillation anticoagulated with Eliquis, hypertension, hyperlipidemia, and right jhjzm-[id number]-[id number] amputation. The patient stated he was too weak today to move from his hospital bed at home to his motorized scooter with a slide board. He also noticed increased swelling to his scrotum as well. He denies any chest pain or shortness of breath at this time. Chest x-ray was read as no acute cardiopulmonary findings given portable technique. White count was noted to be 10.4. H&H is 10.8 in 37.5 which is above his baseline. Sodium level is at his baseline of 131, creatinine 2.84 which is slightly above his baseline of 1.9-2.8. His GFR is 22 which is slightly lower than his baseline of 31-35. His troponin is 0.057. BNP 90017 with a previous level of 11,600. Urine has 3+ leukocyte esterase urine rbc's 3-5 and WBCs greater than 100. The patient was given Lasix and Tylenol in the emergency room. The patient is being admitted to IMU inpatient status on the date of service of 03/18/2025. Pt is seen and examined this morning. Cardiology consulted. Nephrology consulted now as kidney fucntions is worsen. Review of Systems Constitutional: Constitutional: Reports as per HPI and Reports no additional constitutional complaints Eyes: Eyes: Reports as per HPI and Reports no additional eye complaints ENT: Reports system reviewed and no additional complaints, except as documented and Reports Normal hearing present Cardiovascular: Cardiovascular: Reports no additional cardiovascular complaints Respiratory: Respiratory: Reports as per HPI and Reports no additional respiratory complaints Gastrointestinal: Gastrointestinal: Reports as per HPI and Reports no additional gastrointestinal complaints Musculoskeletal: Musculoskeletal: Reports no additional musculoskeletal complaints Integumentary/Breasts: Skin/Breast: Reports system reviewed and no additional complaints, except as docu Neurologic: Reports system reviewed and no additional complaints, except as documented and Reports Normal hearing present Psychiatric: Psychiatric: Reports no additional psychiatric complaints and Reports as per HPI Hematologic/Lymphatic: Hematologic/Lymphatic: Reports no additional hematologic/lymphatic complaints Allergic/Immunologic: Allergic/Immunologic: Reports no additional allergic/immunologic complaints Exam Const: General: cooperative, comfortable, no acute distress, well developed, awake, Physically active, average body habitus and well nourished Nutritional Appearance: average body habitus and well nourished Orientation/consciousness: oriented to person, oriented to place, oriented to time and patient oriented x3 Limitations: no limitations HENMT: Head: normal to inspection, No palpable skull fracture present, normocephalic, atraumatic and abrasion Ears: hearing grossly normal bilaterally Eyes: General: appearance normal, both eyes and all related structures Alignment and Position: alignment normal Periorbital: periorbital findings normal Eyelids: eyelids normal Neck: Neck: normal visual inspection, full ROM and no lymphadenopathy Chest: Chest palpation & inspection: normal inspection of the chest Resp: Effort & Inspection: normal respiratory effort Auscultation: clear to auscultation bilaterally Cardio: Palpation: normal PMI Rate: regular rate Rhythm: regular rhythm Heart sounds: S1 normal heart sound present and S2 normal heart sound present GI: Inspection: normal to inspection : General: Yes no CVA tenderness Back/Spine/Pelvis: Back: no CVA tenderness Cervical Spine: cervical ROM normal Skin: General skin exam: normal color Lesions: no lesions Rashes: no rashes Trauma: no lacerations or abrasions Wounds: no wounds Hair: normal Nails: normal Neuro: General: oriented to person, oriented to place, oriented to time and patient oriented x3 Cranial nerves: Yes Normal hearing present Cognition (Neuro): normal cognition Speech: normal speech Extrem: General: normal to inspection Right upper extremity: normal to inspection and shoulder/upper arm Left upper extremity: normal to inspection and shoulder/upper arm Psych: Appearance: grossly normal Mental Status: mental status grossly normal Speech and movement: Normal speech and movement present Affect: normal affect Attitude: cooperative Thought process: Normal thought process present Insight: Good insight present (Psych) Judgement: Good judgement present (Psych) Objective Data Vital Signs Vital Signs: Vital Signs - 24 hr 03/19/25 10:00 03/19/25 11:39 03/19/25 12:00 Temperature 98.2 F Pulse Rate 71 71 71 Respiratory Rate 20 20 Blood Pressure 104/40 L Pulse Oximetry 95 95 Oxygen Delivery Room Air 03/19/25 12:00 03/19/25 14:00 03/19/25 15:49 Temperature 97.5 F L Pulse Rate 71 80 71 Respiratory Rate 20 Blood Pressure 127/48 L Pulse Oximetry 96 Oxygen Delivery 03/19/25 16:00 03/19/25 16:00 03/19/25 20:00 Temperature 98.4 F Pulse Rate 71 71 75 Respiratory Rate 20 18 Blood Pressure 113/60 Pulse Oximetry 96 97 Oxygen Delivery Room Air 03/19/25 20:00 03/19/25 20:00 03/19/25 20:24 Temperature Pulse Rate 72 72 72 Respiratory Rate 18 Blood Pressure Pulse Oximetry 97 Oxygen Delivery Room Air 03/19/25 22:00 03/19/25 23:11 03/19/25 23:43 Temperature 98.6 F Pulse Rate 76 70 Respiratory Rate 18 Blood Pressure 115/49 L Pulse Oximetry 99 Oxygen Delivery Autopap 03/20/25 00:00 03/20/25 00:00 03/20/25 02:00 Temperature Pulse Rate 71 71 68 Respiratory Rate 18 Blood Pressure Pulse Oximetry 99 Oxygen Delivery Room Air 03/20/25 03:42 03/20/25 04:00 03/20/25 04:00 Temperature 98.3 F Pulse Rate 80 70 70 Respiratory Rate 18 18 Blood Pressure 147/69 H Pulse Oximetry 98 98 Oxygen Delivery Room Air 03/20/25 06:00 03/20/25 08:00 Temperature 97.4 F L Pulse Rate 76 71 Respiratory Rate 16 Blood Pressure 95/41 L Pulse Oximetry 98 Oxygen Delivery Intake/Output Intake/Output: Intake & Output 03/17/25 03/18/25 03/19/25 03/20/25 23:59 23:59 23:59 23:59 Intake Total 50 1170 Output Total 875 2950 800 Balance -825 -1780 -800 Meds/Results Medications: Active Medications Generic Name Dose Route Start Last Admin Trade Name Freq PRN Reason Stop Dose Admin Acetaminophen 500 mg 03/18/25 22:39 03/20/25 06:21 Acetaminophen 500 Mg Tablet PO 500 mg Q6H PRN Administration fever or pain Acetazolamide 250 mg 03/19/25 08:00 03/19/25 08:45 Acetazolamide Tab 250 Mg Tablet PO 250 mg DAILY@0800 ANGELA Administration Allopurinol 100 mg 03/19/25 08:00 03/19/25 08:45 Allopurinol 100 Mg Tablet PO 100 mg DAILY@0800 ANGELA Administration Apixaban 5 mg 03/18/25 22:45 03/19/25 20:24 Apixaban 5 Mg Tablet PO 5 mg Q12HR ANGELA Administration Bumetanide 1 mg 03/19/25 09:00 03/19/25 17:25 Bumetanide Inj 1 Mg/4 Ml Vial IV PUSH 1 mg TID ANGELA Administration Calcitriol 0.25 mcg 03/19/25 09:00 03/19/25 08:44 Calcitriol 0.25 Mcg Capsule PO 0.25 mcg MoWeFr [facility] Administration Docusate Sodium 100 mg 03/19/25 09:00 03/19/25 20:24 Docusate Sodium 100 Mg Capsule PO 100 mg Q12HR ANGELA Administration Empagliflozin 10 mg 03/19/25 10:35 03/19/25 12:41 Empagliflozin 10 Mg Tablet PO 10 mg DAILY ANGELA Administration Ergocalciferol 1,250 mcg 03/22/25 09:00 Ergocalciferol (Vitamin D2) 1,250 Mcg (50,000 Units) Capsule PO WEEKLY [facility] Famotidine 20 mg 03/18/25 22:45 03/19/25 17:24 Famotidine 20 Mg Tablet PO 20 mg BID ANGELA Administration Ferrous Sulfate 325 mg 03/19/25 09:00 03/19/25 17:24 Ferrous Sulfate 325 Mg Tablet PO 325 mg BID ANGELA Administration Fluticasone Propionate 1 spray 03/18/25 22:39 Fluticasone Propionate 0.05% Na Spr 16 Gm Btl (*Bkc) NASAL DAILY PRN Congestion Gabapentin 300 mg 03/18/25 22:45 03/19/25 17:24 Gabapentin 300 Mg Capsule PO 300 mg TID [facility] Administration Hyoscyamine 0.0625 mg 03/19/25 13:48 03/19/25 17:24 Hyoscyamine Sulfate 0.0625 Mg Tablet PO 0.0625 mg Q4H PRN Administration Bladder Spasm Ceftriaxone Sodium 1 gm/ 50 mls @ 100 mls/hr 03/19/25 21:00 03/19/25 20:55 Sodium Chloride IVPB Infused Q24H ANGELA Infusion Levothyroxine Sodium 200 mcg 03/19/25 06:30 03/20/25 06:20 Levothyroxine Sodium 100 Mcg Tablet PO 200 mcg DAILY@0630 ANGELA Administration Metolazone 2.5 mg 03/19/25 09:00 03/19/25 08:45 Metolazone 2.5 Mg Tablet PO 2.5 mg On Hold: 03/20/25 09:09 MoWeFrSa ANGELA Administration Metoprolol Tartrate 50 mg 03/19/25 09:00 03/19/25 20:24 Metoprolol Tartrate 50 Mg Tab PO 50 mg Q12HR ANGELA Administration Minoxidil 2.5 mg 03/19/25 09:00 03/19/25 08:45 Minoxidil 2.5 Mg Tablet PO 2.5 mg On Hold: 03/20/25 09:22 DAILY ANGELA Administration Multi-Ingred Cream/Lotion/Oil/Oint 1 applic 03/19/25 09:00 03/19/25 08:45 Eucerin Cream 120 Gm Jar TOPICAL 1 applic DAILY ANGELA Administration Oxybutynin Chloride 5 mg 03/19/25 12:30 03/20/25 06:21 Oxybutynin Chloride 5 Mg Tablet PO 5 mg TID PRN Administration Bladder Spasm Polyethylene Glycol 17 gm 03/20/25 09:00 Polyethylene Glycol 3350 17 Gm Powd.Pack PO DAILY ANGELA Potassium Chloride 20 meq 03/19/25 08:00 03/19/25 17:24 Potassium Chloride 20 Meq Er Tablet PO 20 meq TIDWM ANGELA Administration Spironolactone 25 mg 03/19/25 09:00 03/19/25 08:44 Spironolactone 25 Mg Tablet PO 25 mg DAILY ANGELA Administration Tamsulosin HCl 0.4 mg 03/19/25 09:00 03/19/25 08:44 Tamsulosin Hcl 0.4 Mg Capsule PO 0.4 mg QAM ANGELA Administration Radiology Results: ITS Impressions Chest X-Ray 03/18/25 13:29 IMPRESSION: 1. No acute cardiopulmonary findings given portable technique. Consider PA and lateral films with deep inspiration. Labs Labs: Laboratory Results - last 24 hr 03/20/25 04:19 WBC 7.0 RBC 3.81 L Hgb 9.2 L Hct 32.6 L MCV 85.6 MCH 24.1 L MCHC 28.2 L RDW 15.9 H Plt Count 296 MPV 9.6 Sodium 128 L Potassium 3.6 Chloride 93 L Carbon Dioxide 31 H Anion Gap 4 BUN 64 H Creatinine 2.52 H Estim Creat Clear Calc 35 Estimated GFR 25 L Glucose 92 Calcium 7.8 L Magnesium 2.5 H Lactate Dehydrogenase 119 L Quality VTE Prophylaxis VTE prophylaxis: pharmacologic ordered
[2025-03-20] MEDS: TAMSULOSIN HCL 0.4 MG CAPSULE PO (09:45)
[2025-03-20] MEDS: GABAPENTIN 300 MG CAPSULE PO ×3 (09:45→21:06)
[2025-03-20] MEDS: FERROUS SULFATE 325 MG TABLET PO ×2 (09:45→18:04)
[2025-03-20] MEDS: DOCUSATE SODIUM 100 MG CAPSULE PO ×2 (09:45→21:06)
[2025-03-20] MEDS: EMPAGLIFLOZIN 10 MG TABLET PO (09:45)
[2025-03-20] MEDS: APIXABAN 5 MG TABLET PO ×2 (09:45→21:06)
[2025-03-20] MEDS: POTASSIUM CHLORIDE 20 MEQ ER TABLET PO ×3 (09:45→18:03)
[2025-03-20] MEDS: acetaZOLAMIDE TAB 250 MG TABLET PO (09:45)
[2025-03-20] MEDS: FAMOTIDINE 20 MG TABLET PO ×2 (09:45→21:05)
[2025-03-20] MEDS: EUCERIN CREAM 120 GM JAR 1 APPLIC TOPICAL (09:47)
[2025-03-20] MEDS: HYOSCYAMINE SULFATE 0.0625 MG TABLET PO (09:56)
--- NOTE | 2025-03-20 10:34 | PM.CNNEP ---
Assessment and Plan Assessment and plan (1) JENA (acute kidney injury): Code(s): N17.9 - Acute kidney failure, unspecified Status: Acute Assessment and Plan: the patient has chronic kidney disease. This is most likely due to poor heart function, hypertension, and possibly vascular disease. His baseline creatinine seems to run about 1.7-2.0. This is while on 4 different diuretic and so his kidney function would probably be better if his heart was not so bad. The patient has acute kidney injury as well. His admission creatinine was up to 2.84. Since admission, he has been getting diuretics and his intake/ output has been negative. Yet his creatinine has improved most likely his major cardiovascular issue is the right-sided heart failure. So he swells severely, but does not feed the left ventricle with blood in so his blood pressure is somewhat soft and his GFR is somewhat low because of chronic pre renal azotemia due to this cardiorenal syndrome. However when the swelling gets severe, just says the legs and scrotum are swollen severely his kidneys are probably also swollen because of the renal venous hypertension. So relief of the renal venous hypertension can sometimes improved renal function, as seems to be the case now as while he his intake/ output is negative, his kidney function is improving. So continued diuresis I think will help both his kidneys and his swelling. Unfortunately his blood pressure dropped this morning. I will give him some midodrine to help the blood pressure come back up. I will also also get a TSH and a cortisol level to make sure there is no other reason is why his blood pressure would be low. He does have pyuria but his urine culture is negative and his chest x-ray is clear so we can not blame infection for this. at this point will give him midodrine to get the blood pressure back up, and continue diuretics. I will increase the metolazone to5mg once a day, change his bumetanide to2mg IV twice a day, and continue the spironolactone and acetazolamide Will check another set of blood work tomorrow long discussion with the patient. (2) Anasarca: Code(s): R60.1 - Generalized edema Status: Acute Assessment and Plan: this is due to his severe right-sided heart failure. this may be due to his chronic sleep apnea, but this is being treated now with the CPAP machine. The patient was on minoxidil at home which can certainly room worsened swelling. will also check a urine protein to creatinine ratio. I will get another echocardiogram. If the pulmonary artery pressures are much higher, then consider Pulmonary consult to see if there is something else they can do to help his pulmonary artery hypertension (3) Anemia of chronic disease: Code(s): D63.8 - Anemia in other chronic diseases classified elsewhere Status: Acute Assessment and Plan: hemoglobin is 9.2. Will check iron levels B12 and folate. (4) Pyuria: Code(s): R82.81 - Pyuria Status: Acute Assessment and Plan: Urine culture is negative. Blood cultures are pending (5) Chronic hyponatremia: Code(s): E87.1 - Hypo-osmolality and hyponatremia Status: Acute Assessment and Plan: his sodium level is mildly low. This is chronic. Most likely due to the diuretics. (6) Essential (primary) hypertension: Code(s): I10 - Essential (primary) hypertension Status: Chronic Assessment and Plan: minoxidil is on hold. He probably should get this anyway because of his severe swelling. (7) Dyslipidemia: Code(s): E78.5 - Hyperlipidemia, unspecified Status: Acute (8) Atrial fibrillation: Qualifiers: Atrial fibrillation type: longstanding persistent Qualified Code(s): I48.11 - Longstanding persistent atrial fibrillation Code(s): I48.91 - Unspecified atrial fibrillation Status: Chronic Assessment and Plan: Heart rate is good at 71. Will reduce metoprolol to25mg twice a day to help with the blood pressure. (9) Vitamin D deficiency: Code(s): E55.9 - Vitamin D deficiency, unspecified Status: Acute Assessment and Plan: Will check a vitamin-D History of Present Illness Reason for Consult Consult date: 03/20/25 Chief Complaint Chief complaint: CHF Exacerbation/NSTEMI History of Present Illness Narrative: Irwin is a very pleasant 75-year-old gentleman who has multiple medical problems including chronic kidney disease with a baseline creatinine of 1.7-2.0, pulmonary hypertension with severely dilated right ventricle, atrial fibrillation with treatment with Eliquis and rate control medications, hypertension, hyperlipidemia, right [id number] amputation, anemia, hyponatremia, gout, sleep apnea on a CPAP machine religiously, GERD, and hypothyroidism.. The patient has been in an out of the hospital with excess fluid and acute on chronic renal failure. The patient also has had problems with constipation leading to obstruction, and also issues with his right lower extremity, recurrent infection, and ultimately below the knee amputation in July of this year. the patient always fights swelling. He is on Bumex, spironolactone, metolazone, and acetazolamide. Last time he was in the hospital they held the acetazolamide. About3 weeks ago the patient developed some swelling. This gradually worsened over the following 2 weeks. Then a week ago his scrotum started swelling and everything became worse during the last week so he came to the ER. He was evaluated in the ER. His chest x-ray was clear. He was found to be extremely swollen. He was given diuretics. He did make about 3L of fluid however his blood pressure dropped this morning so diuretics are on hold. Renal consultation was requested for further diuresis. He is not on any new medications. He is not taking any nonsteroidal anti-inflammatory agents. He denies any infection or other intercurrent illness since last hospitalization. Review of Systems Constitutional: Constitutional: Reports no additional constitutional complaints Eyes: Eyes: Reports no additional eye complaints ENT: Reports system reviewed and no additional complaints, except as documented Cardiovascular: Cardiovascular: Reports no additional cardiovascular complaints Respiratory: Respiratory: Reports no additional respiratory complaints Gastrointestinal: Gastrointestinal: Reports no additional gastrointestinal complaints Genitourinary: Genitourinary: Reports no additional male genitourinary complaints Musculoskeletal: Musculoskeletal: Reports no additional musculoskeletal complaints Integumentary/Breasts: Skin/Breast: Reports system reviewed and no additional complaints, except as docu Neurologic: Reports system reviewed and no additional complaints, except as documented Psychiatric: Psychiatric: Reports no additional psychiatric complaints Endocrine: Endocrine: Reports no additional endocrine complaints [facility] Past Medical History Medical History Anemia of chronic disease Lymphedema of lower extremity Iron deficiency anemia Constipation Stercoral ulcer of rectum Fecal impaction Proctitis Hyponatremia Right foot infection s/p BKA(08/23) Peripheral vascular disease CKD (chronic kidney disease) Morbid obesity with body mass index (BMI) of 40.0 or higher Neuropathic pain Gout Sepsis Chronic acquired lymphedema Chronic anemia Obstructive sleep apnea History of chronic CHF Atrial fibrillation CHF (congestive heart failure) Venous stasis ulcer of right lower extremity Lymphedema of both lower extremities Lymphedema due to chronic inflammation Environmental allergies Ocular rosacea Rosacea Chronic low back pain Chronic venous insufficiency GERD without esophagitis Chronic congestive heart failure Echocardiogram in May 2021 was technically difficult and showed normal LV systolic function with an EF of 60 to 65%, severely enlarged RV chamber with moderate to severely reduced RV systolic function, severe biatrial enlargement, and moderate pulmonary hypertension. Dyslipidemia Essential (primary) hypertension Peripheral polyneuropathy Hypothyroidism Surgical History Surgical History History of testicular surgery At S/P BKA (below knee amputation) 08/25/24 Right below-knee amputation Dr. Malone Hx of right BKA (~07/2024) History of carpal tunnel release History of thoracic surgery Pericardial effusion s/p pericardial window thought secondary to minoxidil, in 2010 at [facility]. H/O eye surgery (~2005) [id number] [facility] 5 surgeries for detached retina. History of foot surgery Left Foot History of cholecystectomy (2008) History of rotator cuff surgery Bilateral. History of discectomy (2012) Family History Family History Father Cardiovascular disease Grandparent Cancer Mother COPD (chronic obstructive pulmonary disease) Social History Social History Social History: Surrogate medical decision maker: Shyla Hurst, daughter. He has a hospital bed and electric power chair at home. He is . He has 2 daughters. He has 4 grandchildren next door who help take care oh him. 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 Code status: Full code. Caffeine-decalf coffee, diet soda Smoking packs per day: 2 Smoking cigarettes per day: 40.0 Years smoked: 20 Smoking pack-years: 40.00 Smoking status: Former smoker Second hand tobacco smoke exposure: No Additional smoking assessment comments: 1978 Alcohol intake: never Alcohol use details: One beer daily. Substance use: never Substance use type: does not use Lack of Transportation: No Lack of Food: Never True Current Housing: I Have Housing Concerned About Future Housing: No Difficulty Paying Gas/Electric Bills: No Difficulty Paying for Meds: No Currently Unemployed: No Education: High School Diploma/GED Difficulty w/ Childcare or Family Care: No Living arrangements: alone Additional living arrangements comments: Lives in own home in [place]. Uses a motorized scooter and transfers with slide board. Occupation/Education: retired Additional occupation/education comments: Retired. 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 Spiritual care concerns: No Meds Home Medications and Allergies Home Medications ?Medication ?Instructions ?Recorded ?Confirmed ?Type apixaban 5 mg tablet (Eliquis) 5 mg PO Q12HR #180 tabs 01/19/22 03/18/25 Rx calcitriol 0.25 mcg capsule 0.25 mcg PO 3XW #36 caps 10/30/23 03/18/25 Rx allopurinol 100 mg tablet 100 mg PO DAILY #10 tabs 08/04/24 03/18/25 Rx famotidine 20 mg tablet 20 mg PO BID #180 tabs 08/04/24 03/18/25 Rx minoxidil 2.5 mg tablet 2.5 mg PO DAILY 08/04/24 03/18/25 History tamsulosin 0.4 mg capsule 0.4 mg PO QAM #90 caps 08/04/24 03/18/25 Rx acetaminophen 500 mg capsule 500 mg PO Q6H PRN fever or pain 09/15/24 03/18/25 History fluticasone propionate 50 1 spray intranasal DAILY PRN 10/21/24 03/18/25 History mcg/actuation nasal Congestion spray,suspension (Flonase Allergy Relief) loratadine 10 mg tablet (Claritin) 10 mg PO DAILY allergy symptoms 10/21/24 03/18/25 History polyethylene glycol 3350 17 17 g PO DAILY 10/21/24 03/19/25 History gram/dose oral powder (Miralax) metolazone 2.5 mg tablet 2.5 mg PO .COMPLEX 12/17/24 03/18/25 History lanolin alcohols-mineral 1 applic topical DAILY #113 grams 12/29/24 03/18/25 Rx oil-w.petrolatum-ceresin topical cream (Minerin Creme topical) spironolactone 25 mg tablet 25 mg PO DAILY #30 tabs 12/29/24 03/18/25 Rx levothyroxine 200 mcg tablet 200 mcg PO DAILY #90 tabs 01/18/25 03/18/25 Rx bumetanide 1 mg tablet 1 mg PO TID 02/18/25 03/18/25 History docusate sodium 100 mg capsule 100 mg PO Q12H constipation 02/18/25 03/18/25 History potassium chloride 10 mEq 20 meq PO TID 02/18/25 03/18/25 History capsule,extended release cholecalciferol (vitamin D3) 1,250 1,250 mcg PO WEEKLY #14 caps 02/22/25 03/18/25 Rx mcg (50,000 unit) capsule gabapentin 300 mg capsule 300 mg PO TID #270 caps 03/02/25 03/18/25 Rx acetazolamide 250 mg tablet 250 mg PO DAILY@0800 03/18/25 03/18/25 History ferrous sulfate 325 mg (65 mg 325 mg PO BID #180 tabs 03/18/25 03/18/25 Rx iron) tablet metoprolol tartrate 50 mg tablet 50 mg PO DAILY@0800 03/18/25 03/18/25 History Allergies Allergy/AdvReac Type Severity Reaction Status Date / Time Sulfa (Sulfonamide Allergy Mild Rash Verified 03/19/25 01:00 Antibiotics) Penicillins Allergy Unknown SWELLING Verified 03/19/25 01:00 codeine AdvReac Mild N/V Verified 03/19/25 01:00 hydrocodone AdvReac Mild N/V Verified 03/19/25 01:00 oxycodone (From OxyContin) AdvReac Mild Nausea Verified 03/19/25 01:00 tramadol AdvReac Mild Nausea Verified 03/19/25 01:00 Vital Signs Vital Signs - 24 hr 03/19/25 11:39 03/19/25 12:00 03/19/25 12:00 Temperature 98.2 F Pulse Rate 71 71 71 Respiratory Rate 20 20 Blood Pressure 104/40 L Pulse Oximetry 95 95 Oxygen Delivery Room Air 03/19/25 14:00 03/19/25 15:49 03/19/25 16:00 Temperature 97.5 F L Pulse Rate 80 71 71 Respiratory Rate 20 20 Blood Pressure 127/48 L Pulse Oximetry 96 96 Oxygen Delivery Room Air 03/19/25 16:00 03/19/25 20:00 03/19/25 20:00 Temperature 98.4 F Pulse Rate 71 75 72 Respiratory Rate 18 Blood Pressure 113/60 Pulse Oximetry 97 Oxygen Delivery 03/19/25 20:00 03/19/25 20:24 03/19/25 22:00 Temperature Pulse Rate 72 72 76 Respiratory Rate 18 Blood Pressure Pulse Oximetry 97 Oxygen Delivery Room Air 03/19/25 23:11 03/19/25 23:43 03/20/25 00:00 Temperature 98.6 F Pulse Rate 70 71 Respiratory Rate 18 18 Blood Pressure 115/49 L Pulse Oximetry 99 99 Oxygen Delivery Autopap Room Air 03/20/25 00:00 03/20/25 02:00 03/20/25 03:42 Temperature 98.3 F Pulse Rate 71 68 80 Respiratory Rate 18 Blood Pressure 147/69 H Pulse Oximetry 98 Oxygen Delivery 03/20/25 04:00 03/20/25 04:00 03/20/25 06:00 Temperature Pulse Rate 70 70 76 Respiratory Rate 18 Blood Pressure Pulse Oximetry 98 Oxygen Delivery Room Air 03/20/25 08:00 03/20/25 10:23 Temperature 97.4 F L Pulse Rate 71 71 Respiratory Rate 16 Blood Pressure 95/41 L Pulse Oximetry 98 97 Oxygen Delivery Exam Narrative: Exam Narrative: Well developed well-nourished male in no acute distress Skin is warm and dry without rash Head normocephalic atraumatic Eyes normal sclerae and conjunctivae Mouth normal lips teeth and gums Neck no nodes no thyromegaly no carotid bruits Axillae no nodes Back no CVA tenderness Lungs symmetric and clear to auscultation and percussion Heart regular rate and rhythm without rub or gallop Abdomen bowel sounds positive soft nontender, no HSM, masses, or bruits. Extremities no cyanosis, clubbing, but 3+ bilateral edema. right BKA Pulses 2+ equal in radial arteries Psychological not anxious or depressed Neuro alert and oriented x3 motor 5/5 cranial nerves 2-12 intact reflexes 2+ and equal in the biceps and patellar tendons cerebellar normal rapid alternating movements Results Lab Results 03/20/25 04:19 03/20/25 04:19 Lab results: Most recent lab results Calcium 7.8 mg/dL (8.4-10.2) L 03/20/25 04:19 Magnesium 2.5 mg/dL (1.6-2.3) H 03/20/25 04:19
--- NOTE | 2025-03-20 10:54 | ECHO_ITS ---
Patient Info Name: Irwin Cyr Age: 75 years : 1950 Gender: Male Ht: 72 in Wt: 343 lbs BSA: 2.89 m2 HR: 71 bpm BP: 95 / 41 mmHg Heart Rhythm: Atrial Fibrillation Technical Quality: Poor Exam Date: 03/20/2025 11:44 AM Patient Status: I Admit Date: 03/18/2025 Exam Type: CA echo dop color flow w con Complete two-dimensional, color flow and Doppler transthoracic echocardiogram is performed with contrast to opacify the left ventricle and to improve the deliniation of the left ventricle endocardial borders. Staff Referring Physician: Estuardo Orourke Administrative Accountant: Anibal Morrow III Attending Provider: Panda Kc MD Contrast/Agitated Saline Contrast/Ag. Saline: Definity Amount: 2.00 ml Administered By: Anibal Morrow III Existing IV Access: Yes IV Access Condition: patent with no signs of infiltration Reason for Poor Study: patient body habitus Summary 1. Patient supine for echo. Poor windows. Patient unable to move. 2. Technically difficult study. 3. Left ventricular systolic function is normal, estimated at 55-60. 4. The left ventricular diastolic function is abnormal. 5. Right ventricular chamber dimension is not well visualized. 6. There is mild tricuspid valve regurgitation. 7. No pulmonary hypertension, estimated pulmonary arterial systolic pressure is 30 mmHg.( it was estimated from incomplete envelope of TR). 8. If pulmonary hypertension is of concern, consider right heart cath. Left Ventricle Left ventricular chamber dimension is normal. Left ventricular systolic function is normal, estimated at 55-60. There is no increased left ventricular wall thickness. Left ventricular septal wall motion is normal. The left ventricular diastolic function is abnormal. Right Ventricle Right ventricular chamber dimension is not well visualized. Left Atria Left atrial chamber dimension is normal. Right Atria Right atrial chamber dimension is normal. Aortic Valve The aortic valve is probable trileaflet. There is mild aortic valve sclerosis. There is no aortic valve stenosis. There is no aortic valve regurgitation. Pulmonic Valve The pulmonic valve is not well visualized. There is no pulmonic valve stenosis. There is no pulmonic regurgitation. Mitral Valve The mitral valve has normal leaflets. There is no mitral valve stenosis. There is no mitral valve regurgitation. Tricuspid Valve The tricuspid valve leaflets are normal. There is no significant tricuspid valve stenosis. There is mild tricuspid valve regurgitation. No pulmonary hypertension, estimated pulmonary arterial systolic pressure is 30 mmHg.( it was estimated from incomplete envelope of TR). Pericardium/Pleural The pericardium appears normal. There is no pericardial effusion. Inferior Vena Cava Dilated inferior vena cava with <50% collapse upon inspiration consistent with elevated right atrial pressure, 15 mmHg. Aorta The aortic root size at the sinus of Valsalva is normal. The prox ascending aorta size is normal. Left Ventricular Outflow Tract Name Value Normal LVOT 2D LVOT Diameter 2.4 cm LVOT Doppler LVOT Peak Velocity 70 cm/s LVOT Peak Gradient 2 mmHg LVOT Mean Gradient 1 mmHg LVOT VTI 15 cm LVOT VTI/AV VTI Ratio 0.7 LVOT Stroke Volume 71 ml LVOT CO 5.0 l/min LVOT CI 1.7 l/min/m2 Mitral Valve Name Value Normal MV Doppler MV Peak Gradient 6 mmHg MV Mean Gradient 3 mmHg MV Area (Cont Eq VTI) 2.5 cm2 MV Diastolic Function MV E Peak Velocity 139 cm/s MV A Peak Velocity 1 cm/s MV E/A 257.6 MV Decel Time (PW) 252 ms MV Annular TDI MV E/e' (Septal) 28.1 MV E/e' (Lateral) 14.1 MV E/e' (Average) 21.1 Tricuspid Valve Name Value Normal TV Regurgitation Doppler TR Peak Velocity 195 cm/s TR Peak Gradient 15 mmHg Estimated PAP/RSVP RA Pressure 15 mmHg <=5 PA Systolic Pressure 30 mmHg <36 RV Systolic Pressure 30 mmHg <36 Aortic Valve Name Value Normal AV Doppler AV Peak Velocity 104 cm/s AV Peak Gradient 4 mmHg AV Mean Gradient 3 mmHg AV VTI 22 cm AV Area (Cont Eq VTI) 3.2 cm2 >=3.0 AV Area (Cont Eq Leo) 3.1 cm2 AV DI (Leo) 0.68 AV Regurgitation 2D LVOT Area 4.6 cm2 Ventricles Name Value Normal LV Dimensions 2D/MM IVS Diastolic Thickness (2D) 1.5 cm 0.6-1.0 LVID Diastole (2D) 5.3 cm 4.2-5.8 LVIW Diastolic Thickness (2D) 1.6 cm 0.6-1.0 LVID Systole (2D) 3.0 cm 2.5-4.0 LVOT Diameter 2.4 cm LV Mass (2D Cubed) 365.85 g 88.00-224.00 LV Mass Index (2D Cubed) 127 g/m2 49-115 Relative Wall Thickness (2D) 0.59 <=0.42 LV Fractional Shortening/Ejection Fraction 2D/MM LV Fractional Shortening (2D) 41 % 25-43 LV EF (2D Teichholz) 74 % LV Diastolic Volume (4C MOD) 173 ml LV EF (4C MOD) 67 % LV Diastolic Length (4C) 8.2 cm LV Systolic Length (4C) 7.1 cm LV Stroke Volume (4C MOD) 116 ml Atria Name Value Normal LA Dimensions LA Volume (4C A-L) 165 ml RA Dimensions RA Systolic Major [place] Length (4C) 7.4 cm 2.1-2.7 RA Area (4C) 33.3 cm2 <=18.0 Report Signatures
[2025-03-20 11:09] LABS: Immature Reticulocyte Fraction 37.2 % (3.0-15.9); Reticulocyte Hemoglobin Conten 24.1 pg (28.2-36.6); Reticulocytes Absolute 0.11 10^6/uL (0.02-0.10)
[2025-03-20 11:23] LABS: Iron 33 ug/dL (49-181)
[2025-03-20 11:29] LABS: Parathyroid Intact 95.5 pg/mL (14.5-75.2)
[2025-03-20 11:33] LABS: Percent Iron Saturation 10 % (20-50)
[2025-03-20 11:57] LABS: Thyroid Stimulating Hormone Reflex 4.480 uIU/mL (0.465-4.68)
[2025-03-20 12:06] LABS: Ferritin 8.74 ng/mL (11.1-264)
[2025-03-20 12:15] LABS: Vitamin B12 177.0 pg/mL (239-931)
[2025-03-20] MEDS: BUMETANIDE INJ 1 MG/4 ML VIAL 2 MG IV PUSH ×2 (12:44→18:03)
[2025-03-20] MEDS: MIDODRINE HCL 2.5 MG TABLET 5 MG PO ×2 (12:44→18:03)
[2025-03-20] MEDS: PERFLUTREN LIPID MICROSPHERES 1.5 ML VIAL DILUTED TO 10 ML TOTAL VOLUME IV PUSH (13:16)
--- NOTE | 2025-03-20 13:16 | IVDEFINITY ---
Prior to administration of IV Definity the patient was educated on the risks and benefits of the imaging enhancing agent including potential adverse side effects. The patient verbalized understanding. Allergies were verified. No exclusion criteria were identified and at least one of the following inclusion criteria were met: 1) physician request, 2) patient technically difficult to image (per the [place] [employer]chocardi[employer] guidelines of two or more segments not discernable within the apical view), or 3) questionable left ventricular function. ?
[2025-03-20 13:59] LABS: Free T4 Free Thyroxine Reflex 0.91 ng/dL (0.78-2.19)
[2025-03-20 14:49] LABS: Total Triiodothyronine (T3) 0.54 NG/ML (0.82-1.58)
[2025-03-20 15:51] LABS: Urea Random Urine 432 MG/DL
[2025-03-20 15:52] LABS: Total Protein Urine Random 13 mg/dL; Ur Ttl Prot Creatinine Ratio 0.27 mg/mg (0-0.20)
[2025-03-20] MEDS: cefTRIAXone 1 GM in SODIUM CHLORIDE 0.9% IV 50 ML 10 ML IVPB (21:08)
[2025-03-21] VITALS (18 sets, daily range): BP systolic 111–130; BP diastolic 41–55; PULSE 67–96; RESP 12–20; TEMP 35.9–37.1; O2SAT 96–100
[2025-03-21 04:31] LABS: Hematocrit 31.2 % (42.0-52.0); Hemoglobin 9.0 g/dL (14.0-18.0); Mean Corpuscular HGB Conc 28.8 g/dl (32-36); Mean Corpuscular Hemoglobin 24.9 pg (26-34); Mean Corpuscular Volume 86.2 fl (80-100); Platelet Count Result 258 k/mm3 (150-375); Red Blood Count 3.62 M/mm3 (4.6-6.20); White Blood Count 7.7 K/mm3 (4.5-10.0)
[2025-03-21 04:55] LABS: Albumin Level 2.4 g/dL (3.5-5.1); Anion Gap 2 mmol/L (4-12); Blood Urea Nitrogen 60 mg/dL (9-20); Calcium 7.9 mg/dL (8.4-10.2); Carbon Dioxide 33 mmol/L (22-30); Chloride 93 mmol/L (98-107); Estimated CRCL calculation 36 ml/min; Estimated Glomerular Filt Rate 26; Glucose 90 mg/dL (65-110); Potassium 3.7 mmol/L (3.4-5.0); Sodium 128 mmol/L (137-145)
[2025-03-21] MEDS: GABAPENTIN 300 MG CAPSULE PO ×3 (05:32→20:44)
[2025-03-21] MEDS: LEVOTHYROXINE SODIUM 100 MCG TABLET 200 MCG PO (05:32)
[2025-03-21] MEDS: ACETAMINOPHEN 500 MG TABLET PO ×3 (05:39→20:43)
--- NOTE | 2025-03-21 06:39 | P.PNCA_ITS ---
Progress Note: A&P Assessment and Plan (1) Acute on chronic diastolic heart failure: Code(s): I50.33 - Acute on chronic diastolic (congestive) heart failure Status: Acute (2) Chronic venous insufficiency: Code(s): I87.2 - Venous insufficiency (chronic) (peripheral) Status: Acute (3) Peripheral vascular disease: Code(s): I73.9 - Peripheral vascular disease, unspecified Status: Acute (4) Atrial fibrillation: Qualifiers: Atrial fibrillation type: longstanding persistent Qualified Code(s): I48.11 - Longstanding persistent atrial fibrillation Code(s): I48.91 - Unspecified atrial fibrillation Status: Chronic (5) Cardiac enzymes elevated: Code(s): R74.8 - Abnormal levels of other serum enzymes Status: Acute Plan 75 y/o male with Acute on chronic diastolic heart failure Reduced RV systolic function --LVEF 60%, diastolic dysfunction present, mild TR, no pHTN, PASP 30mm Hg Hypotension - with diuresis Elevated troponin without chest pain secondary to acute heart failure A fib without RVR PVD s/p R BKA HTN HLD CKD- creatinine 2.45 today, down from 2.52 Morbid obesity Plan: Appreciate nephrology input. Midodrine was added to help with BP Decrease Bumex to 1mg IV BID Continue metolazone Continue spironolactone Continue metoprolol with holding parameters (hold for SBP<110mm Hg) Continue empagliflozin Continue Eliquis for anticoagulation for A fib/flutter Check weight, ins and outs, and renal function daily Check and replace electrolytes to keep K>4 and Mg>2 Monitor on telemetry Subjective Date/time seen: 03/21/25 06:39 Interval history: Reason for encounter: Acute diastolic heart failure Relevatn history: 75 y/o male with PMH of a fib on chronic anticoagulation with Eliquis, diastolic heart failure, HTN, HLD, PVD, R BKA, morbid obesity, CKD, anemia of chronic disease, lyphedema of lower extremity, gout, AMELIA, GERD presets with CC of weakness. Patient was too weak to transfer from his hospital bed at home to his motorized scooter with a slide board. He has increased swelling to his scrotum. His legs are more swollen and weeping. Elevated troponin and NT Pro BNP. EKG A flutter and RBBB. CXR with no acute cardiopulmonary pathology. Last TTE in 11/2024 showed LVEF 65-70%, RV systolic function is reduced, D-shaped septum consistent with right ventricular pressure and volume overload, PASP 40mm Hg, no significant valvular pathology. Cardiology is consulted for further recommendations for congestive heart failure. Interval history: He was hypotensive yesterday. Bumex and other anti- hypertensive meds are held. He denies any chest pain or SOB. Review of Systems Cardiovascular: Comments: As per HPI Respiratory: Comments: As per HPI Exam Narrative: General: Alert oriented x3, no acute distress Neck: Supple, JVD + Chest: Bilateral clear to auscultation, no rales or rhonchi Cardiac: S1, S2 +, regular rate, regular rhythm, no murmurs or rubs Extremities: R BKA with stump swelling, LLE swelling 2+, no skin rash Neurologic: Alert and oriented x3, no focal neurological deficits Objective Data Vital Signs Vital Signs: Vital Signs - 24 hr 03/20/25 08:00 03/20/25 08:00 03/20/25 10:00 Temperature 36.3 C L Pulse Rate 71 73 71 Respiratory Rate 16 Blood Pressure 95/41 L Pulse Oximetry 98 Oxygen Delivery 03/20/25 10:23 03/20/25 12:00 03/20/25 12:00 Temperature 37.2 C Pulse Rate 71 74 72 Respiratory Rate 18 Blood Pressure 116/52 L Pulse Oximetry 97 100 Oxygen Delivery 03/20/25 14:00 03/20/25 16:00 03/20/25 16:00 Temperature 37.2 C Pulse Rate 72 71 71 Respiratory Rate 12 Blood Pressure 124/50 L Pulse Oximetry 100 Oxygen Delivery 03/20/25 18:00 03/20/25 20:00 03/20/25 20:00 Temperature 37.5 C Pulse Rate 71 66 71 Respiratory Rate 12 12 Blood Pressure 102/45 L Pulse Oximetry 98 98 Oxygen Delivery Room Air 03/20/25 20:00 03/20/25 21:08 03/20/25 22:00 Temperature Pulse Rate 71 78 78 Respiratory Rate Blood Pressure Pulse Oximetry Oxygen Delivery 03/20/25 23:00 03/20/25 23:47 03/21/25 00:00 Temperature 36.3 C L Pulse Rate 73 71 68 Respiratory Rate 12 12 Blood Pressure 115/46 L Pulse Oximetry 98 97 97 Oxygen Delivery Autopap Autopap 03/21/25 00:00 03/21/25 02:00 03/21/25 02:30 Temperature Pulse Rate 68 68 70 Respiratory Rate Blood Pressure Pulse Oximetry 97 Oxygen Delivery Autopap 03/21/25 04:00 03/21/25 04:00 03/21/25 04:00 Temperature 36.1 C L Pulse Rate 70 70 70 Respiratory Rate 12 12 Blood Pressure 130/47 L Pulse Oximetry 99 99 Oxygen Delivery Autopap 03/21/25 06:00 Temperature Pulse Rate 68 Respiratory Rate Blood Pressure Pulse Oximetry Oxygen Delivery Intake/Output Intake/Output: Intake & Output 03/18/25 03/19/25 03/20/25 03/21/25 23:59 23:59 23:59 23:59 Intake Total 50 1170 1260 Output Total 875 1650 4800 850 [facility] -[phone] Meds/Results Medications: Active Medications Generic Name Dose Route Start Last Admin Trade Name Freq PRN Reason Stop Dose Admin Acetaminophen 500 mg 03/18/25 22:39 03/21/25 05:39 Acetaminophen 500 Mg Tablet PO 500 mg Q6H PRN Administration fever or pain Acetazolamide 250 mg 03/19/25 08:00 03/20/25 09:45 Acetazolamide Tab 250 Mg Tablet PO 250 mg DAILY@0800 ANGELA Administration Allopurinol 100 mg 03/19/25 08:00 03/20/25 09:45 Allopurinol 100 Mg Tablet PO 100 mg DAILY@0800 ANGELA Administration Apixaban 5 mg 03/18/25 22:45 03/20/25 21:06 Apixaban 5 Mg Tablet PO 5 mg Q12HR ANGELA Administration Bumetanide 2 mg 03/20/25 10:55 03/20/25 18:03 Bumetanide Inj 1 Mg/4 Ml Vial IV PUSH 2 mg BID ANGELA Administration Calcitriol 0.25 mcg 03/19/25 09:00 03/19/25 08:44 Calcitriol 0.25 Mcg Capsule PO 0.25 mcg MoWeFr ANGELA Administration Docusate Sodium 100 mg 03/19/25 09:00 03/20/25 21:06 Docusate Sodium 100 Mg Capsule PO 100 mg Q12HR ANGELA Administration Empagliflozin 10 mg 03/19/25 10:35 03/20/25 09:45 Empagliflozin 10 Mg Tablet PO 10 mg DAILY ANGELA Administration Ergocalciferol 1,250 mcg 03/22/25 09:00 Ergocalciferol (Vitamin D2) 1,250 Mcg (50,000 Units) Capsule PO WEEKLY ANGELA Famotidine 20 mg 03/20/25 21:00 03/20/25 21:05 Famotidine 20 Mg Tablet PO 20 mg Q12HR ANGELA Administration Ferrous Sulfate 325 mg 03/19/25 09:00 03/20/25 18:04 Ferrous Sulfate 325 Mg Tablet PO 325 mg BID ANGELA Administration Fluticasone Propionate 1 spray 03/18/25 22:39 Fluticasone Propionate 0.05% Na Spr 16 Gm Btl (*Bkc) NASAL DAILY PRN Congestion Gabapentin 300 mg 03/20/25 14:00 03/21/25 05:32 Gabapentin 300 Mg Capsule PO 300 mg Q8HR ANGELA Administration Hyoscyamine 0.0625 mg 03/19/25 13:48 03/20/25 09:56 Hyoscyamine Sulfate 0.0625 Mg Tablet PO 0.0625 mg Q4H PRN Administration Bladder Spasm Ceftriaxone Sodium 1 gm/ 50 mls @ 100 mls/hr 03/19/25 21:00 03/20/25 21:08 Sodium Chloride IVPB 10 mls/hr Q24H [facility] Administration Levothyroxine Sodium 200 mcg 03/19/25 06:30 03/21/25 05:32 Levothyroxine Sodium 100 Mcg Tablet PO 200 mcg DAILY@0630 [facility] Administration Metolazone 5 mg 03/21/25 09:00 Metolazone 5 Mg Tablet PO QAM [facility] Metoprolol Tartrate 50 mg 03/19/25 09:00 03/20/25 21:08 Metoprolol Tartrate 50 Mg Tab PO Not Given Q12HR [facility] Midodrine 5 mg 03/20/25 13:00 03/20/25 18:03 Midodrine Hcl 2.5 Mg Tablet PO 5 mg TID ANGELA Administration Multi-Ingred Cream/Lotion/Oil/Oint 1 applic 03/19/25 09:00 03/20/25 09:47 Eucerin Cream 120 Gm Jar TOPICAL 1 applic DAILY ANEGLA Administration Oxybutynin Chloride 5 mg 03/19/25 12:30 03/20/25 21:05 Oxybutynin Chloride 5 Mg Tablet PO 5 mg TID PRN Administration Bladder Spasm Polyethylene Glycol 17 gm 03/20/25 09:00 03/20/25 09:56 Polyethylene Glycol 3350 17 Gm Powd.Pack PO 17 gm DAILY ANGELA Administration Potassium Chloride 20 meq 03/19/25 08:00 03/20/25 18:03 Potassium Chloride 20 Meq Er Tablet PO 20 meq TIDWM ANGELA Administration Spironolactone 25 mg 03/19/25 09:00 03/20/25 09:47 Spironolactone 25 Mg Tablet PO Not Given DAILY ANGELA Tamsulosin HCl 0.4 mg 03/19/25 09:00 03/20/25 09:45 Tamsulosin Hcl 0.4 Mg Capsule PO 0.4 mg QAM ANGELA Administration Radiology Results: ITS Impressions Chest X-Ray 03/18/25 13:29 IMPRESSION: 1. No acute cardiopulmonary findings given portable technique. Consider PA and lateral films with deep inspiration. Labs Labs: Laboratory Results - last 24 hr 03/20/25 03/20/25 03/21/25 04:19 15:35 04:20 WBC 7.7 RBC 3.62 L Hgb 9.0 L Hct 31.2 L MCV 86.2 MCH 24.9 L MCHC 28.8 L RDW 16.0 H Plt Count 258 MPV 9.1 Absolute Retic 0.11 H Percent Retic 2.78 Immature Retic Fraction 37.2 H Retic Hgb Content 24.1 L Sodium 128 L 128 L Potassium 3.6 3.7 Chloride 93 L 93 L Carbon Dioxide 31 H 33 H Anion Gap 4 2 L BUN 64 H 60 H Creatinine 2.52 H 2.45 H Estim Creat Clear Calc 35 36 Estimated GFR 25 L 26 L Glucose 92 90 Calcium 7.8 L 7.9 L Phosphorus 4.7 H Magnesium 2.5 H Iron 33 L TIBC 333 % Saturation 10 L Ferritin 8.74 L Lactate Dehydrogenase 119 L 109 L Albumin 2.4 L Vitamin B12 177.0 L Vitamin D 25-Hydroxy 14.5 Folate 6.4 TSH (Reflex) 4.480 Free T4 0.91 Total T3 0.54 L PTH Intact 95.5 H Random Cortisol 16.40 U Random Total Protein 13 Ur Random Urea 432 Urine Creatinine 48.3 Protein/Creat Ratio 2 0.27 H
--- NOTE | 2025-03-21 07:35 | P.PNIM_ITS ---
Assessment and Plan Assessment and Plan (1) Acute on chronic diastolic heart failure: Code(s): I50.33 - Acute on chronic diastolic (congestive) heart failure Status: Acute Assessment and Plan: -echo on 12/17/2024 was read as left ventricular systolic function is normal estimated at 65-70, left ventricular diastolic function is abnormal. -patient 2+ the 3+ pitting edema to left lower extremity. -IV Bumex has been ordered. The patient got a dose of Lasix in the emergency room. Monitor renal function closely. Continue with potassium supplement as well. -continue with Aldactone. -continue with Zaroxolyn -cardiology consulted: Appreciate nephrology input. Midodrine was added to help with BP Decrease Bumex to 1mg IV BID Continue metolazone Continue spironolactone Continue metoprolol with holding parameters (hold for SBP<110mm Hg) Continue empagliflozin Continue Eliquis for anticoagulation for A fib/flutter Check weight, ins and outs, and renal function daily Check and replace electrolytes to keep K>4 and Mg>2 Monitor on telemetry (2) Cardiac enzymes elevated: Code(s): R74.8 - Abnormal levels of other serum enzymes Status: Acute Assessment and Plan: -cardiology has been consulted. -troponin 0.057, 0.061. Repeat troponin in the a.m.. -the patient is not short of breath or having any chest pain. -this could be related to his CHF and are chronic renal failure. (3) UTI (urinary tract infection): Code(s): N39.0 - Urinary tract infection, site not specified Status: Acute Assessment and Plan: -he was started on Rocephin. -blood and urine cultures are pending -conitunue IV antibiotics for now (4) Atrial fibrillation: Qualifiers: Atrial fibrillation type: longstanding persistent Qualified Code(s): I48.11 - Longstanding persistent atrial fibrillation Code(s): I48.91 - Unspecified atrial fibrillation Status: Chronic Assessment and Plan: -the patient is currently in sinus rhythm. -continue with Eliquis -continue with metoprolol -rate is controlled at this time. - bleeding precautions (5) Venous stasis dermatitis: Code(s): I87.2 - Venous insufficiency (chronic) (peripheral) Status: Acute Assessment and Plan: -continue with lanolin oil patient has a right [id number] amputation that is fairly new from a couple months ago. (6) Peripheral vascular disease: Code(s): I73.9 - Peripheral vascular disease, unspecified Status: Acute Assessment and Plan: -the patient is on apixaban. (7) Dyslipidemia: Code(s): E78.5 - Hyperlipidemia, unspecified Status: Acute Assessment and Plan: -continue with home medications. The patient does not appear to be on any statins for unknown reasons. (8) Hypothyroidism: Qualifiers: Hypothyroidism type: acquired Qualified Code(s): E03.9 - Hypothyroidism, unspecified Code(s): E03.9 - Hypothyroidism, unspecified Status: Chronic Assessment and Plan: -continue with levothyroxine (9) CKD (chronic kidney disease) stage 3, GFR 30-59 ml/min: Qualifiers: Chronic kidney disease stage 3 subtype: stage 3b (GFR 30-44) Qualified Code(s): N18.32 - Chronic kidney disease, stage 3b Code(s): N18.3 - Chronic kidney disease, stage 3 (moderate) Status: Acute Assessment and Plan: -creatinine 2.84 which is slightly above his baseline of 1.9-2.8. His GFR is 22 which is slightly lower than his baseline of 31-34 -monitor BMP daily. -may consider Nephrology consult if labs worsen with diuretics. -nephrology consulted: at this point will give him midodrine to get the blood pressure back up, and continue diuretics. I will increase the metolazone to5mg once a day, change his bumetanide to2mg IV twice a day, and continue the spironolactone and acetazolamide (10) Anemia of chronic disease: Code(s): D63.8 - Anemia in other chronic diseases classified elsewhere Status: Acute Assessment and Plan: -the patient is slightly above his baseline. This appears to be stable. Most likely secondary to his chronic renal failure. - monitor (11) AMELIA (obstructive sleep apnea): Code(s): G47.33 - Obstructive sleep apnea (adult) (pediatric) Status: Chronic Assessment and Plan: The patient brought his own CPAP machine, he may continue to use this . (12) Gout: Qualifiers: Chronicity: chronic Gout etiology: unspecified cause Gout site: multiple sites Qualified Code(s): M1A.09X0 - Idiopathic chronic gout, multiple sites, without tophus (tophi) Code(s): M10.9 - Gout, unspecified Status: Acute (13) Rosacea: Code(s): L71.9 - Rosacea, unspecified Status: Acute Plan The patient has chronic hyponatremia. Most likely secondary to his CHF with 3rd spacing. Medical Record Review I have reviewed the following patient records and this information was taken into consideration when formulating the assessment and plan.: previous labs and previous clinic visits Time Spent With Patient Time with patient: Greater than 35 minutes Subjective Date/time seen: 03/21/25 07:35 Interval history: 75 y/o male with PMH of a fib on chronic anticoagulation with Eliquis, diastolic heart failure, HTN, HLD, PVD, R BKA, morbid obesity, CKD, anemia of chronic disease, lyphedema of lower extremity, gout, AMELIA, GERD presets with CC of weakness. 03/21 pt is seen and examined. He is in bed, resting with eyes clsoed, c/o pain all over from uncomfortable bed. He still has swelling to his scrotum. His legs swollen and weeping. He is in bed, on bipap. Elevated troponin and NT Pro BNP. EKG A flutter and RBBB. CXR with no acute cardiopulmonary pathology. Last TTE in 11/2024 showed LVEF 65-70%, RV systolic function is reduced. Cardiology and nephrology following. Review of Systems Constitutional: Constitutional: Reports as per HPI and Reports no additional constitutional complaints Eyes: Eyes: Reports as per HPI and Reports no additional eye complaints ENT: Reports system reviewed and no additional complaints, except as documented and Reports Normal hearing present Cardiovascular: Cardiovascular: Reports no additional cardiovascular complaints Respiratory: Respiratory: Reports as per HPI and Reports no additional respiratory complaints Gastrointestinal: Gastrointestinal: Reports as per HPI and Reports no additional gastrointestinal complaints Musculoskeletal: Musculoskeletal: Reports no additional musculoskeletal complaints Integumentary/Breasts: Skin/Breast: Reports system reviewed and no additional complaints, except as docu Neurologic: Reports system reviewed and no additional complaints, except as documented and Reports Normal hearing present Psychiatric: Psychiatric: Reports no additional psychiatric complaints and Reports as per HPI Hematologic/Lymphatic: Hematologic/Lymphatic: Reports no additional hematologic/lymphatic complaints Allergic/Immunologic: Allergic/Immunologic: Reports no additional a llergic/immunologic complaints Exam Const: General: cooperative and comfortable Orientation/consciousness: oriented to person, oriented to place, oriented to time and patient oriented x3 HENMT: Head: normal to inspection, No palpable skull fracture present and normocephalic Eyes: General: appearance normal, both eyes and all related structures Neck: Neck: normal visual inspection Chest: Chest palpation & inspection: normal inspection of the chest Resp: Effort & Inspection: normal respiratory effort Auscultation: clear to auscultation bilaterally Cardio: Palpation: normal PMI Rate: regular rate Rhythm: regular rhythm GI: Inspection: normal to inspection Auscultation: normal bowel sounds : General: Yes no CVA tenderness Back/Spine/Pelvis: Back: no CVA tenderness Cervical Spine: cervical ROM normal Skin: General skin exam: normal color Hair: normal Nails: normal Neuro: General: oriented to person, oriented to place, oriented to time and patient oriented x3 Cranial nerves: Yes Normal hearing present Cognition (Neuro): normal cognition Speech: normal speech Extrem: General: normal to inspection and edema Psych: Appearance: grossly normal Mental Status: mental status grossly normal Speech and movement: Normal speech and movement present Affect: normal affect Attitude: cooperative Objective Data Vital Signs Vital Signs: Vital Signs - 24 hr 03/20/25 08:00 03/20/25 08:00 03/20/25 10:00 Temperature 97.4 F L Pulse Rate 71 73 71 Respiratory Rate 16 Blood Pressure 95/41 L Pulse Oximetry 98 Oxygen Delivery 03/20/25 10:23 03/20/25 12:00 03/20/25 12:00 Temperature 99.0 F Pulse Rate 71 74 72 Respiratory Rate 18 Blood Pressure 116/52 L Pulse Oximetry 97 100 Oxygen Delivery 03/20/25 14:00 03/20/25 16:00 03/20/25 16:00 Temperature 99.0 F Pulse Rate 72 71 71 Respiratory Rate 12 Blood Pressure 124/50 L Pulse Oximetry 100 Oxygen Delivery 03/20/25 18:00 03/20/25 20:00 03/20/25 20:00 Temperature 99.5 F Pulse Rate 71 66 71 Respiratory Rate 12 12 Blood Pressure 102/45 L Pulse Oximetry 98 98 Oxygen Delivery Room Air 03/20/25 20:00 03/20/25 21:08 03/20/25 22:00 Temperature Pulse Rate 71 78 78 Respiratory Rate Blood Pressure Pulse Oximetry Oxygen Delivery 03/20/25 23:00 03/20/25 23:47 03/21/25 00:00 Temperature 97.3 F L Pulse Rate 73 71 68 Respiratory Rate 12 12 Blood Pressure 115/46 L Pulse Oximetry 98 97 97 Oxygen Delivery Autopap Autopap 03/21/25 00:00 03/21/25 02:00 03/21/25 02:30 Temperature Pulse Rate 68 68 70 Respiratory Rate Blood Pressure Pulse Oximetry 97 Oxygen Delivery Autopap 03/21/25 04:00 03/21/25 04:00 03/21/25 04:00 Temperature 96.9 F L Pulse Rate 70 70 70 Respiratory Rate 12 12 Blood Pressure 130/47 L Pulse Oximetry 99 99 Oxygen Delivery Autopap 03/21/25 06:00 Temperature Pulse Rate 68 Respiratory Rate Blood Pressure Pulse Oximetry Oxygen Delivery Intake/Output Intake/Output: Intake & Output 03/18/25 03/19/25 03/20/25 03/21/25 23:59 23:59 23:59 23:59 Intake Total 50 1170 1260 Output Total 875 2950 4800 850 [facility] -[phone] Meds/Results Medications: Active Medications Generic Name Dose Route Start Last Admin Trade Name Freq PRN Reason Stop Dose Admin Acetaminophen 500 mg 03/18/25 22:39 03/21/25 05:39 Acetaminophen 500 Mg Tablet PO 500 mg Q6H PRN Administration fever or pain Acetazolamide 250 mg 03/19/25 08:00 03/20/25 09:45 Acetazolamide Tab 250 Mg Tablet PO 250 mg DAILY@0800 REPLACED BY [facility] Administration Allopurinol 100 mg 03/19/25 08:00 03/20/25 09:45 Allopurinol 100 Mg Tablet PO 100 mg DAILY@0800 REPLACED BY [facility] Administration Apixaban 5 mg 03/18/25 22:45 03/20/25 21:06 Apixaban 5 Mg Tablet PO 5 mg Q12HR ANGELA Administration Bumetanide 2 mg 03/20/25 10:55 03/20/25 18:03 Bumetanide Inj 1 Mg/4 Ml Vial IV PUSH 2 mg BID ANGELA Administration Calcitriol 0.25 mcg 03/19/25 09:00 03/19/25 08:44 Calcitriol 0.25 Mcg Capsule PO 0.25 mcg MoWeFr REPLACED BY [facility] Administration Docusate Sodium 100 mg 03/19/25 09:00 03/20/25 21:06 Docusate Sodium 100 Mg Capsule PO 100 mg Q12HR ANGELA Administration Empagliflozin 10 mg 03/19/25 10:35 03/20/25 09:45 Empagliflozin 10 Mg Tablet PO 10 mg DAILY ANGELA Administration Ergocalciferol 1,250 mcg 03/22/25 09:00 Ergocalciferol (Vitamin D2) 1,250 Mcg (50,000 Units) Capsule PO WEEKLY REPLACED BY [facility] Famotidine 20 mg 03/20/25 21:00 03/20/25 21:05 Famotidine 20 Mg Tablet PO 20 mg Q12HR ANGELA Administration Ferrous Sulfate 325 mg 03/19/25 09:00 03/20/25 18:04 Ferrous Sulfate 325 Mg Tablet PO 325 mg BID REPLACED BY [facility] Administration Fluticasone Propionate 1 spray 03/18/25 22:39 Fluticasone Propionate 0.05% Na Spr 16 Gm Btl (*Bkc) NASAL DAILY PRN Congestion Gabapentin 300 mg 03/20/25 14:00 03/21/25 05:32 Gabapentin 300 Mg Capsule PO 300 mg Q8HR ANGELA Administration Hyoscyamine 0.0625 mg 03/19/25 13:48 03/20/25 09:56 Hyoscyamine Sulfate 0.0625 Mg Tablet PO 0.0625 mg Q4H PRN Administration Bladder Spasm Ceftriaxone Sodium 1 gm/ 50 mls @ 100 mls/hr 03/19/25 21:00 03/20/25 21:08 Sodium Chloride IVPB 10 mls/hr Q24H ANGELA Administration Levothyroxine Sodium 200 mcg 03/19/25 06:30 03/21/25 05:32 Levothyroxine Sodium 100 Mcg Tablet PO 200 mcg DAILY@0630 REPLACED BY [facility] Administration Metolazone 5 mg 03/21/25 09:00 Metolazone 5 Mg Tablet PO QAM REPLACED BY [facility] Metoprolol Tartrate 50 mg 03/19/25 09:00 03/20/25 21:08 Metoprolol Tartrate 50 Mg Tab PO Not Given Q12HR REPLACED BY [facility] Midodrine 5 mg 03/20/25 13:00 03/20/25 18:03 Midodrine Hcl 2.5 Mg Tablet PO 5 mg TID REPLACED BY [facility] Administration Multi-Ingred Cream/Lotion/Oil/Oint 1 applic 03/19/25 09:00 03/20/25 09:47 Eucerin Cream 120 Gm Jar TOPICAL 1 applic DAILY ANGELA Administration Oxybutynin Chloride 5 mg 03/19/25 12:30 03/20/25 21:05 Oxybutynin Chloride 5 Mg Tablet PO 5 mg TID PRN Administration Bladder Spasm Polyethylene Glycol 17 gm 03/20/25 09:00 03/20/25 09:56 Polyethylene Glycol 3350 17 Gm Powd.Pack PO 17 gm DAILY ANGELA Administration Potassium Chloride 20 meq 03/19/25 08:00 03/20/25 18:03 Potassium Chloride 20 Meq Er Tablet PO 20 meq TIDWM ANGELA Administration Spironolactone 25 mg 03/19/25 09:00 03/20/25 09:47 Spironolactone 25 Mg Tablet PO Not Given DAILY ANGELA Tamsulosin HCl 0.4 mg 03/19/25 09:00 03/20/25 09:45 Tamsulosin Hcl 0.4 Mg Capsule PO 0.4 mg QAM ANGELA Administration Radiology Results: ITS Impressions Chest X-Ray 03/18/25 13:29 IMPRESSION: 1. No acute cardiopulmonary findings given portable technique. Consider PA and lateral films with deep inspiration. Labs Labs: Laboratory Results - last 24 hr 03/20/25 03/20/25 03/21/25 04:19 15:35 04:20 WBC 7.7 RBC 3.62 L Hgb 9.0 L Hct 31.2 L MCV 86.2 MCH 24.9 L MCHC 28.8 L RDW 16.0 H Plt Count 258 MPV 9.1 Absolute Retic 0.11 H Percent Retic 2.78 Immature Retic Fraction 37.2 H Retic Hgb Content 24.1 L Sodium 128 L 128 L Potassium 3.6 3.7 Chloride 93 L 93 L Carbon Dioxide 31 H 33 H Anion Gap 4 2 L BUN 64 H 60 H Creatinine 2.52 H 2.45 H Estim Creat Clear Calc 35 36 Estimated GFR 25 L 26 L Glucose 92 90 Calcium 7.8 L 7.9 L Phosphorus 4.7 H Magnesium 2.5 H Iron 33 L TIBC 333 % Saturation 10 L Ferritin 8.74 L Lactate Dehydrogenase 119 L 109 L Albumin 2.4 L Vitamin B12 177.0 L Vitamin D 25-Hydroxy 14.5 Folate 6.4 TSH (Reflex) 4.480 Free T4 0.91 Total T3 0.54 L PTH Intact 95.5 H Random Cortisol 16.40 U Random Total Protein 13 Ur Random Urea 432 Urine Creatinine 48.3 Protein/Creat Ratio 2 0.27 H Quality VTE Prophylaxis VTE prophylaxis: pharmacologic ordered
[2025-03-21] MEDS: BUMETANIDE INJ 1 MG/4 ML VIAL 2 MG IV PUSH ×2 (08:45→16:45)
[2025-03-21] MEDS: DOCUSATE SODIUM 100 MG CAPSULE PO ×2 (08:48→20:44)
[2025-03-21] MEDS: APIXABAN 5 MG TABLET PO ×2 (08:49→20:43)
[2025-03-21] MEDS: POTASSIUM CHLORIDE 20 MEQ ER TABLET PO ×3 (08:49→16:46)
[2025-03-21] MEDS: MIDODRINE HCL 2.5 MG TABLET 5 MG PO ×3 (08:49→16:45)
[2025-03-21] MEDS: FERROUS SULFATE 325 MG TABLET PO ×2 (08:49→16:47)
[2025-03-21] MEDS: EMPAGLIFLOZIN 10 MG TABLET PO (08:50)
[2025-03-21] MEDS: TAMSULOSIN HCL 0.4 MG CAPSULE PO (08:50)
[2025-03-21] MEDS: acetaZOLAMIDE TAB 250 MG TABLET PO (08:50)
[2025-03-21] MEDS: SPIRONOLACTONE 25 MG TABLET PO (08:50)
[2025-03-21] MEDS: FAMOTIDINE 20 MG TABLET PO ×2 (08:50→20:43)
[2025-03-21] MEDS: EUCERIN CREAM 120 GM JAR 1 APPLIC TOPICAL (08:54)
--- NOTE | 2025-03-21 10:06 | PCPTNOTE ---
PT debora attempted, pt adamantly refused, stating he is sore all over and is in a lot of pain. Reports the skin on his back itches, however, he started to get irritable when educated regarding importance of movement to reduce risk for pressure sores. Nursing notified, will continue to monitor. - RR, PT 03/21/2025, 10:06
--- NOTE | 2025-03-21 10:55 | PCOTNOTE ---
The patient initial occupational therapy evaluation was not able to be completed on 03/21 due to patient adamantly refused, stating he is sore all over and is in a lot of pain. Will plan to evaluate when able.
--- NOTE | 2025-03-21 12:04 | PM.PNNEP ---
Progress Note: A&P Assessment and Plan (1) JENA (acute kidney injury): Code(s): N17.9 - Acute kidney failure, unspecified Status: Acute Assessment and Plan: the patient has chronic kidney disease. This is most likely due to poor heart function, hypertension, and possibly vascular disease. His baseline creatinine seems to run about 1.7-2.0. This is while on 4 different diuretic and so his kidney function would probably be better if his heart was not so bad. The patient has acute kidney injury as well. His admission creatinine was up to 2.84. It has gradually improved with diuresis. Fractional excretion of urea pre renal. most likely JENA due to renal venous hypertension. So continued diuresis I think will help both his kidneys and his swelling. Thankfully is blood pressure has improved so he is tolerating dialysis. Continue midodrine. Continue higher dose diuretics. Check labs tomorrow (2) Anasarca: Code(s): R60.1 - Generalized edema Status: Acute Assessment and Plan: this is due to his severe right-sided heart failure. this may be due to his chronic sleep apnea, but this is being treated now with the CPAP machine and minoxidil. He does not have much protein in the urine.. He is off the minoxidil. echocardiogram ordered. (3) Anemia of chronic disease: Code(s): D63.8 - Anemia in other chronic diseases classified elsewhere Status: Acute Assessment and Plan: hemoglobin is 9.2. Will check iron levels B12 and folate. (4) Pyuria: Code(s): R82.81 - Pyuria Status: Acute Assessment and Plan: Urine culture is negative. Blood cultures are pending (5) Chronic hyponatremia: Code(s): E87.1 - Hypo-osmolality and hyponatremia Status: Acute Assessment and Plan: his sodium level is mildly low. This is chronic. Most likely due to the diuretics. (6) Essential (primary) hypertension: Code(s): I10 - Essential (primary) hypertension Status: Chronic Assessment and Plan: minoxidil is on hold. He probably should not get this anyway because of his severe swelling. (7) Dyslipidemia: Code(s): E78.5 - Hyperlipidemia, unspecified Status: Acute (8) Atrial fibrillation: Qualifiers: Atrial fibrillation type: longstanding persistent Qualified Code(s): I48.11 - Longstanding persistent atrial fibrillation Code(s): I48.91 - Unspecified atrial fibrillation Status: Chronic Assessment and Plan: Heart rate is good at 68. Will reduce metoprolol to25mg twice a day to help with the blood pressure. (9) Vitamin D deficiency: Code(s): E55.9 - Vitamin D deficiency, unspecified Status: Acute Assessment and Plan: Will check a vitamin-D Subjective Date/time seen: 03/21/25 12:04 Interval history: patient feels about the same. He did notice a large increase in his urine output. He has aches and pains everywhere. Review of Systems Cardiovascular: Cardiovascular: Reports no additional cardiovascular complaints Respiratory: Respiratory: Reports no additional respiratory complaints Gastrointestinal: Gastrointestinal: Reports no additional gastrointestinal complaints Genitourinary: Genitourinary: Reports no additional male genitourinary complaints Exam Narrative: WDWN in NAD skin no rash head ncat lungs clear cor reg no rub abd BS+ nontender and soft ext 2-3+ bilateral edema. Objective Data Vital Signs Vital Signs: Vital Signs - 24 hr 03/20/25 14:00 03/20/25 16:00 03/20/25 16:00 Temperature 99.0 F Pulse Rate 72 71 71 Respiratory Rate 12 Blood Pressure 124/50 L Pulse Oximetry 100 Oxygen Delivery 03/20/25 18:00 03/20/25 20:00 03/20/25 20:00 Temperature 99.5 F Pulse Rate 71 66 71 Respiratory Rate 12 12 Blood Pressure 102/45 L Pulse Oximetry 98 98 Oxygen Delivery Room Air 03/20/25 20:00 03/20/25 21:08 03/20/25 22:00 Temperature Pulse Rate 71 78 78 Respiratory Rate Blood Pressure Pulse Oximetry Oxygen Delivery 03/20/25 23:00 03/20/25 23:47 03/21/25 00:00 Temperature 97.3 F L Pulse Rate 73 71 68 Respiratory Rate 12 12 Blood Pressure 115/46 L Pulse Oximetry 98 97 97 Oxygen Delivery Autopap Autopap 03/21/25 00:00 03/21/25 02:00 03/21/25 02:30 Temperature Pulse Rate 68 68 70 Respiratory Rate Blood Pressure Pulse Oximetry 97 Oxygen Delivery Autopap 03/21/25 04:00 03/21/25 04:00 03/21/25 04:00 Temperature 96.9 F L Pulse Rate 70 70 70 Respiratory Rate 12 12 Blood Pressure 130/47 L Pulse Oximetry 99 99 Oxygen Delivery Autopap 03/21/25 06:00 03/21/25 08:00 03/21/25 08:00 Temperature 96.7 F L Pulse Rate 68 67 70 Respiratory Rate 20 Blood Pressure 111/55 L Pulse Oximetry 100 Oxygen Delivery 03/21/25 10:00 03/21/25 10:13 Temperature Pulse Rate 70 68 Respiratory Rate Blood Pressure Pulse Oximetry Oxygen Delivery Intake/Output Intake/Output: Intake & Output 03/18/25 03/19/25 03/20/25 03/21/25 23:59 23:59 23:59 23:59 Intake Total 50 1170 1260 Output Total 870 7630 4800 850 [facility] -825 -1780 -3540 -850 Meds/Results Medications: Active Medications Generic Name Dose Route Start Last Admin Trade Name Freq PRN Reason Stop Dose Admin Acetaminophen 500 mg 03/18/25 22:39 03/21/25 05:39 Acetaminophen 500 Mg Tablet PO 500 mg Q6H PRN Administration fever or pain Acetazolamide 250 mg 03/19/25 08:00 03/21/25 08:50 Acetazolamide Tab 250 Mg Tablet PO 250 mg DAILY@0800 ANGELA Administration Allopurinol 100 mg 03/19/25 08:00 03/21/25 08:51 Allopurinol 100 Mg Tablet PO 100 mg DAILY@0800 ANGELA Administration Apixaban 5 mg 03/18/25 22:45 03/21/25 08:49 Apixaban 5 Mg Tablet PO 5 mg Q12HR ANGELA Administration Bumetanide 2 mg 03/20/25 10:55 03/21/25 08:45 Bumetanide Inj 1 Mg/4 Ml Vial IV PUSH 2 mg BID ANGELA Administration Calcitriol 0.25 mcg 03/19/25 09:00 03/19/25 08:44 Calcitriol 0.25 Mcg Capsule PO 0.25 mcg MoWeFr ANGELA Administration Docusate Sodium 100 mg 03/19/25 09:00 03/21/25 08:48 Docusate Sodium 100 Mg Capsule PO 100 mg Q12HR ANGELA Administration Empagliflozin 10 mg 03/19/25 10:35 03/21/25 08:50 Empagliflozin 10 Mg Tablet PO 10 mg DAILY ANGELA Administration Ergocalciferol 1,250 mcg 03/22/25 09:00 Ergocalciferol (Vitamin D2) 1,250 Mcg (50,000 Units) Capsule PO WEEKLY [facility] Famotidine 20 mg 03/20/25 21:00 03/21/25 08:50 Famotidine 20 Mg Tablet PO 20 mg Q12HR ANGELA Administration Ferrous Sulfate 325 mg 03/19/25 09:00 03/21/25 08:49 Ferrous Sulfate 325 Mg Tablet PO 325 mg BID ANGELA Administration Fluticasone Propionate 1 spray 03/18/25 22:39 Fluticasone Propionate 0.05% Na Spr 16 Gm Btl (*Bkc) NASAL DAILY PRN Congestion Gabapentin 300 mg 03/20/25 14:00 03/21/25 05:32 Gabapentin 300 Mg Capsule PO 300 mg Q8HR ANGELA Administration Hyoscyamine 0.0625 mg 03/19/25 13:48 03/20/25 09:56 Hyoscyamine Sulfate 0.0625 Mg Tablet PO 0.0625 mg Q4H PRN Administration Bladder Spasm Ceftriaxone Sodium 1 gm/ 50 mls @ 100 mls/hr 03/19/25 21:00 03/20/25 21:08 Sodium Chloride IVPB 10 mls/hr Q24H [facility] Administration Levothyroxine Sodium 200 mcg 03/19/25 06:30 03/21/25 05:32 Levothyroxine Sodium 100 Mcg Tablet PO 200 mcg DAILY@0630 [facility] Administration Metolazone 5 mg 03/21/25 09:00 03/21/25 08:50 Metolazone 5 Mg Tablet PO 5 mg QAM [facility] Administration Metoprolol Tartrate 50 mg 03/19/25 09:00 03/21/25 10:13 Metoprolol Tartrate 50 Mg Tab PO Not Given Q12HR [facility] Midodrine 5 mg 03/20/25 13:00 03/21/25 08:49 Midodrine Hcl 2.5 Mg Tablet PO 5 mg TID [facility] Administration Multi-Ingred Cream/Lotion/Oil/Oint 1 applic 03/19/25 09:00 03/21/25 08:54 Eucerin Cream 120 Gm Jar TOPICAL 1 applic DAILY ANGELA Administration Oxybutynin Chloride 5 mg 03/19/25 12:30 03/20/25 21:05 Oxybutynin Chloride 5 Mg Tablet PO 5 mg TID PRN Administration Bladder Spasm Polyethylene Glycol 17 gm 03/20/25 09:00 03/21/25 10:13 Polyethylene Glycol 3350 17 Gm Powd.Pack PO Not Given DAILY ANGELA Potassium Chloride 20 meq 03/19/25 08:00 03/21/25 08:49 Potassium Chloride 20 Meq Er Tablet PO 20 meq TIDWM ANGELA Administration Spironolactone 25 mg 03/19/25 09:00 03/21/25 08:50 Spironolactone 25 Mg Tablet PO 25 mg DAILY ANGELA Administration Tamsulosin HCl 0.4 mg 03/19/25 09:00 03/21/25 08:50 Tamsulosin Hcl 0.4 Mg Capsule PO 0.4 mg QAM ANGELA Administration Radiology Results: ITS Impressions Chest X-Ray 03/18/25 13:29 IMPRESSION: 1. No acute cardiopulmonary findings given portable technique. Consider PA and lateral films with deep inspiration. Labs Labs: Laboratory Results - last 24 hr 03/20/25 03/20/25 03/21/25 04:19 15:35 04:20 WBC 7.7 RBC 3.62 L Hgb 9.0 L Hct 31.2 L MCV 86.2 MCH 24.9 L MCHC 28.8 L RDW 16.0 H Plt Count 258 MPV 9.1 Sodium 128 L Potassium 3.7 Chloride 93 L Carbon Dioxide 33 H Anion Gap 2 L BUN 60 H Creatinine 2.45 H Estim Creat Clear Calc 36 Estimated GFR 26 L Glucose 90 Calcium 7.9 L Phosphorus 4.7 H Ferritin 8.74 L Lactate Dehydrogenase 109 L Albumin 2.4 L Vitamin B12 177.0 L Folate 6.4 Free T4 0.91 Total T3 0.54 L Random Cortisol 16.40 U Random Total Protein 13 Ur Random Urea 432 Urine Creatinine 48.3 Protein/Creat Ratio 2 0.27 H
[2025-03-21 12:31] LABS: Creatine Kinase 36 U/L (55-170)
[2025-03-21] MEDS: METOPROLOL TARTRATE 50 MG TAB PO (20:44)
[2025-03-21] MEDS: cefTRIAXone 1 GM in SODIUM CHLORIDE 0.9% IV 50 ML 100 ML IVPB (20:45)
[2025-03-22] VITALS (17 sets, daily range): BP systolic 104–129; BP diastolic 48–59; PULSE 43–86; RESP 16–24; TEMP 36.2–36.7; O2SAT 69–100
[2025-03-22 04:26] LABS: Hematocrit 31.6 % (42.0-52.0); Hemoglobin 9.0 g/dL (14.0-18.0); Mean Corpuscular HGB Conc 28.5 g/dl (32-36); Mean Corpuscular Hemoglobin 24.7 pg (26-34); Mean Corpuscular Volume 86.8 fl (80-100); Platelet Count Result 252 k/mm3 (150-375); Red Blood Count 3.64 M/mm3 (4.6-6.20); White Blood Count 6.8 K/mm3 (4.5-10.0)
[2025-03-22 04:51] LABS: Albumin Level 2.5 g/dL (3.5-5.1); Anion Gap 2 mmol/L (4-12); Blood Urea Nitrogen 57 mg/dL (9-20); Calcium 8.1 mg/dL (8.4-10.2); Carbon Dioxide 32 mmol/L (22-30); Chloride 93 mmol/L (98-107); Estimated CRCL calculation 38 ml/min; Estimated Glomerular Filt Rate 28; Glucose 87 mg/dL (65-110); Magnesium 2.5 mg/dL (1.6-2.3); Potassium 3.5 mmol/L (3.4-5.0); Sodium 127 mmol/L (137-145)
[2025-03-22] MEDS: ACETAMINOPHEN 500 MG TABLET PO ×2 (05:21→20:59)
[2025-03-22] MEDS: GABAPENTIN 300 MG CAPSULE PO ×3 (05:21→21:00)
[2025-03-22] MEDS: LEVOTHYROXINE SODIUM 100 MCG TABLET 200 MCG PO (05:22)
[2025-03-22] MEDS: POTASSIUM CHLORIDE 20 MEQ ER TABLET PO ×3 (09:04→17:45)
[2025-03-22] MEDS: BUMETANIDE INJ 1 MG/4 ML VIAL 2 MG IV PUSH ×2 (09:04→17:45)
[2025-03-22] MEDS: METOPROLOL TARTRATE 50 MG TAB PO ×2 (09:05→21:00)
[2025-03-22] MEDS: FERROUS SULFATE 325 MG TABLET PO ×2 (09:05→17:45)
[2025-03-22] MEDS: EMPAGLIFLOZIN 10 MG TABLET PO (09:05)
[2025-03-22] MEDS: TAMSULOSIN HCL 0.4 MG CAPSULE PO (09:05)
[2025-03-22] MEDS: DOCUSATE SODIUM 100 MG CAPSULE PO ×2 (09:05→21:00)
[2025-03-22] MEDS: acetaZOLAMIDE TAB 250 MG TABLET PO (09:05)
[2025-03-22] MEDS: ERGOCALCIFEROL (VITAMIN D2) 1,250 MCG (50,000 UNITS) CAPSULE 1250 MCG PO ×2 (09:05→12:54)
[2025-03-22] MEDS: MIDODRINE HCL 2.5 MG TABLET 5 MG PO ×3 (09:05→17:45)
[2025-03-22] MEDS: FAMOTIDINE 20 MG TABLET PO ×2 (09:06→21:00)
[2025-03-22] MEDS: APIXABAN 5 MG TABLET PO ×2 (09:06→20:59)
[2025-03-22] MEDS: SPIRONOLACTONE 25 MG TABLET PO (09:06)
[2025-03-22] MEDS: EUCERIN CREAM 120 GM JAR 1 APPLIC TOPICAL (09:06)
--- NOTE | 2025-03-22 09:10 | P.PNCA_ITS ---
Progress Note: A&P Assessment and Plan (1) Acute on chronic diastolic heart failure: Code(s): I50.33 - Acute on chronic diastolic (congestive) heart failure Status: Acute (2) Chronic venous insufficiency: Code(s): I87.2 - Venous insufficiency (chronic) (peripheral) Status: Acute (3) Peripheral vascular disease: Code(s): I73.9 - Peripheral vascular disease, unspecified Status: Acute (4) Atrial fibrillation: Qualifiers: Atrial fibrillation type: longstanding persistent Qualified Code(s): I48.11 - Longstanding persistent atrial fibrillation Code(s): I48.91 - Unspecified atrial fibrillation Status: Chronic (5) Cardiac enzymes elevated: Code(s): R74.8 - Abnormal levels of other serum enzymes Status: Acute Plan 75 y/o male with Acute on chronic diastolic heart failure Reduced RV systolic function --LVEF 60%, diastolic dysfunction present, mild TR, no pHTN, PASP 30mm Hg Hypotension - with diuresis Elevated troponin without chest pain secondary to acute heart failure A fib without RVR PVD s/p R BKA HTN HLD CKD- creatinine 2.45 today, down from 2.52 Morbid obesity Plan: Appreciate nephrology input. Midodrine was added to help with BP Decrease Bumex to 1mg IV BID Continue metolazone Continue spironolactone Continue metoprolol with holding parameters (hold for SBP<110mm Hg) Continue empagliflozin Continue Eliquis for anticoagulation for A fib/flutter Check weight, ins and outs, and renal function daily Check and replace electrolytes to keep K>4 and Mg>2 Monitor on telemetry Subjective Date/time seen: 03/22/25 09:10 Interval history: Cardiology follow up visit Date of service 03/22/2025: Review of Systems Review of Systems: A complete review of systems was performed and pertinent positives are reported in the HPI. Exam Narrative: General: Alert oriented x3, no acute distress Neck: Supple, JVD + Chest: Bilateral clear to auscultation, no rales or rhonchi Cardiac: S1, S2 +, regular rate, regular rhythm, no murmurs or rubs Extremities: R BKA with stump swelling, LLE swelling 2+, no skin rash Neurologic: Alert and oriented x3, no focal neurological deficits Objective Data Vital Signs Vital Signs: Vital Signs - 24 hr 03/21/25 10:00 03/21/25 10:13 03/21/25 12:00 Temperature Pulse Rate 70 68 72 Respiratory Rate Blood Pressure Pulse Oximetry Oxygen Delivery 03/21/25 12:00 03/21/25 14:00 03/21/25 16:00 Temperature 36.9 C 36.9 C Pulse Rate 71 71 71 Respiratory Rate 16 20 Blood Pressure 122/52 L 113/50 L Pulse Oximetry 100 100 Oxygen Delivery 03/21/25 16:00 03/21/25 18:00 03/21/25 19:37 Temperature 36.9 C Pulse Rate 71 70 71 Respiratory Rate 16 Blood Pressure 126/52 L Pulse Oximetry 100 Oxygen Delivery 03/21/25 20:00 03/21/25 20:00 03/21/25 20:44 Temperature Pulse Rate 69 69 70 Respiratory Rate 16 Blood Pressure Pulse Oximetry 97 Oxygen Delivery Autopap 03/21/25 21:44 03/21/25 21:51 03/21/25 23:29 Temperature 37.1 C Pulse Rate 68 70 96 Respiratory Rate 17 Blood Pressure 116/41 L Pulse Oximetry 97 96 Oxygen Delivery Autopap 03/22/25 00:00 03/22/25 00:00 03/22/25 02:00 Temperature Pulse Rate 69 69 43 L Respiratory Rate 17 Blood Pressure Pulse Oximetry 96 Oxygen Delivery Autopap 03/22/25 03:13 03/22/25 03:34 03/22/25 03:34 Temperature Pulse Rate 65 54 L 54 L Respiratory Rate 17 Blood Pressure Pulse Oximetry 95 95 Oxygen Delivery Autopap Autopap 03/22/25 04:19 03/22/25 05:54 03/22/25 07:45 Temperature 36.7 C 36.6 C Pulse Rate 59 L 68 69 Respiratory Rate 18 24 H Blood Pressure 104/53 L 126/52 L Pulse Oximetry 98 95 Oxygen Delivery 03/22/25 08:25 Temperature Pulse Rate Respiratory Rate Blood Pressure Pulse Oximetry Oxygen Delivery Room Air Intake/Output Intake/Output: Intake & Output 03/19/25 03/20/25 03/21/25 03/22/25 23:59 23:59 23:59 23:59 Intake Total 1170 1260 1390 600 Output Total 2950 4800 2850 2400 Balance -4139 -0020 -1460 -1800 Meds/Results Medications: Active Medications Generic Name Dose Route Start Last Admin Trade Name Alanis PRN Reason Stop Dose Admin Acetaminophen 500 mg 03/18/25 22:39 03/22/25 05:21 Acetaminophen 500 Mg Tablet PO 500 mg Q6H PRN Administration fever or pain Acetazolamide 250 mg 03/19/25 08:00 03/21/25 08:50 Acetazolamide Tab 250 Mg Tablet PO 250 mg DAILY@0800 ANGELA Administration Allopurinol 100 mg 03/19/25 08:00 03/21/25 08:51 Allopurinol 100 Mg Tablet PO 100 mg DAILY@0800 ANGELA Administration Apixaban 5 mg 03/18/25 22:45 03/21/25 20:43 Apixaban 5 Mg Tablet PO 5 mg Q12HR ANGELA Administration Bumetanide 2 mg 03/20/25 10:55 03/21/25 16:45 Bumetanide Inj 1 Mg/4 Ml Vial IV PUSH 2 mg BID ANGELA Administration Calcitriol 0.25 mcg 03/19/25 09:00 03/19/25 08:44 Calcitriol 0.25 Mcg Capsule PO 0.25 mcg MoWeFr ANGELA Administration Docusate Sodium 100 mg 03/19/25 09:00 03/21/25 20:44 Docusate Sodium 100 Mg Capsule PO 100 mg Q12HR ANGELA Administration Empagliflozin 10 mg 03/19/25 10:35 03/21/25 08:50 Empagliflozin 10 Mg Tablet PO 10 mg DAILY ANGELA Administration Ergocalciferol 1,250 mcg 03/22/25 09:00 Ergocalciferol (Vitamin D2) 1,250 Mcg (50,000 Units) Capsule PO WEEKLY [facility] Famotidine 20 mg 03/20/25 21:00 03/21/25 20:43 Famotidine 20 Mg Tablet PO 20 mg Q12HR ANGELA Administration Ferrous Sulfate 325 mg 03/19/25 09:00 03/21/25 16:47 Ferrous Sulfate 325 Mg Tablet PO 325 mg BID ANGELA Administration Fluticasone Propionate 1 spray 03/18/25 22:39 Fluticasone Propionate 0.05% Na Spr 16 Gm Btl (*Bkc) NASAL DAILY PRN Congestion Gabapentin 300 mg 03/20/25 14:00 03/22/25 05:21 Gabapentin 300 Mg Capsule PO 300 mg Q8HR ANGELA Administration Hyoscyamine 0.0625 mg 03/19/25 13:48 03/20/25 09:56 Hyoscyamine Sulfate 0.0625 Mg Tablet PO 0.0625 mg Q4H PRN Administration Bladder Spasm Ceftriaxone Sodium 1 gm/ 50 mls @ 100 mls/hr 03/19/25 21:00 03/21/25 21:15 Sodium Chloride IVPB Infused Q24H ANGELA Infusion Levothyroxine Sodium 200 mcg 03/19/25 06:30 03/22/25 05:22 Levothyroxine Sodium 100 Mcg Tablet PO 200 mcg DAILY@0630 ANGELA Administration Metolazone 5 mg 03/21/25 09:00 03/21/25 08:50 Metolazone 5 Mg Tablet PO 5 mg QAM ANGELA Administration Metoprolol Tartrate 50 mg 03/19/25 09:00 03/21/25 20:44 Metoprolol Tartrate 50 Mg Tab PO 50 mg Q12HR ANGELA Administration Midodrine 5 mg 03/20/25 13:00 03/21/25 16:45 Midodrine Hcl 2.5 Mg Tablet PO 5 mg TID ANGELA Administration Multi-Ingred Cream/Lotion/Oil/Oint 1 applic 03/19/25 09:00 03/21/25 08:54 Eucerin Cream 120 Gm Jar TOPICAL 1 applic DAILY ANGELA Administration Oxybutynin Chloride 5 mg 03/19/25 12:30 03/21/25 12:54 Oxybutynin Chloride 5 Mg Tablet PO 5 mg TID PRN Administration Bladder Spasm Polyethylene Glycol 17 gm 03/20/25 09:00 03/21/25 10:13 Polyethylene Glycol 3350 17 Gm Powd.Pack PO Not Given DAILY [facility] Potassium Chloride 20 meq 03/19/25 08:00 03/21/25 16:46 Potassium Chloride 20 Meq Er Tablet PO 20 meq TIDWM ANGELA Administration Spironolactone 25 mg 03/19/25 09:00 03/21/25 08:50 Spironolactone 25 Mg Tablet PO 25 mg DAILY ANGELA Administration Tamsulosin HCl 0.4 mg 03/19/25 09:00 03/21/25 08:50 Tamsulosin Hcl 0.4 Mg Capsule PO 0.4 mg QAM ANGELA Administration Radiology Results: ITS Impressions Chest X-Ray 03/18/25 13:29 IMPRESSION: 1. No acute cardiopulmonary findings given portable technique. Consider PA and lateral films with deep inspiration. Labs Labs: Laboratory Results - last 24 hr 03/21/25 03/22/25 03/22/25 04:20 04:15 04:17 WBC 6.8 RBC 3.64 L Hgb 9.0 L Hct 31.6 L MCV 86.8 MCH 24.7 L MCHC 28.5 L RDW 16.0 H Plt Count 252 MPV 9.7 Sodium 127 L Potassium 3.5 Chloride 93 L Carbon Dioxide 32 H Anion Gap 2 L BUN 57 H Creatinine 2.30 H Estim Creat Clear Calc 38 Estimated GFR 28 L Glucose 87 Calcium 8.1 L Phosphorus 5.1 H Magnesium 2.5 H Cancelled Total Creatine Kinase 36 L Albumin 2.5 L Quality VTE Prophylaxis VTE prophylaxis: pharmacologic ordered
--- NOTE | 2025-03-22 09:37 | P.PNNP_ITS ---
Progress Note: A&P Assessment and Plan (1) JENA (acute kidney injury): Code(s): N17.9 - Acute kidney failure, unspecified Status: Acute Assessment and Plan: the patient has chronic kidney disease. This is most likely due to poor heart function, hypertension, and possibly vascular disease. His baseline creatinine seems to run about 1.7-2.0. This is while on 4 different diuretic and so his kidney function would probably be better if his heart was not so bad. The patient has acute kidney injury as well. His admission creatinine was up to 2.84. It has gradually improving with diuresis. Fractional excretion of urea pre renal. most likely JENA due to renal venous hypertension. will continue diuresis; I think will help both his kidneys and his swelling. Thankfully is blood pressure has improved so he is tolerating diuresis Continue midodrine. Continue higher dose diuretics. continue to follow lab work (2) Anasarca: Code(s): R60.1 - Generalized edema Status: Acute Assessment and Plan: this is due to his severe right-sided heart failure. this may be due to his chronic sleep apnea, but this is being treated now with the CPAP machine and minoxidil. He does not have much protein in the urine.. He is off the minoxidil. echocardiogram shows normal LV function, mild tricuspid regurgitation, no pulmonary hypertension. (3) Anemia of chronic disease: Code(s): D63.8 - Anemia in other chronic diseases classified elsewhere Status: Acute Assessment and Plan: hemoglobin is 9.2. TSAT is low. will give iron after antibiotics are done B12 is low will supplement (4) Pyuria: Code(s): R82.81 - Pyuria Status: Acute Assessment and Plan: Urine culture is negative. Blood cultures are pending (5) Chronic hyponatremia: Code(s): E87.1 - Hypo-osmolality and hyponatremia Status: Acute Assessment and Plan: his sodium level is mildly low. This is chronic. Most likely due to the diuretics. (6) Essential (primary) hypertension: Code(s): I10 - Essential (primary) hypertension Status: Chronic Assessment and Plan: minoxidil is on hold. He probably should not get this anyway because of his severe swelling. blood pressure is doing fine right now (7) Dyslipidemia: Code(s): E78.5 - Hyperlipidemia, unspecified Status: Acute (8) Atrial fibrillation: Qualifiers: Atrial fibrillation type: longstanding persistent Qualified Code(s): I48.11 - Longstanding persistent atrial fibrillation Code(s): I48.91 - Unspecified atrial fibrillation Status: Chronic Assessment and Plan: Heart rate is good at 70. Will reduce metoprolol to25mg twice a day to help with the blood pressure. (9) Vitamin D deficiency: Code(s): E55.9 - Vitamin D deficiency, unspecified Status: Acute Assessment and Plan: vitamin-D is low Subjective Date/time seen: 03/22/25 09:37 Interval history: the patient is about the same today. Generally weak. Eating okay. He made a lot of urine yesterday. Exam Narrative: WDWN in NAD skin no rash head ncat lungs clear bilaterally cor reg no rub or gallop abd BS+ nontender and soft ext 2-3+ bilateral edema. Objective Data Vital Signs Vital Signs: Vital Signs - 24 hr 03/21/25 10:00 03/21/25 10:13 03/21/25 12:00 Temperature Pulse Rate 70 68 72 Respiratory Rate Blood Pressure Pulse Oximetry Oxygen Delivery 03/21/25 12:00 03/21/25 14:00 03/21/25 16:00 Temperature 98.4 F 98.5 F Pulse Rate 71 71 71 Respiratory Rate 16 20 Blood Pressure 122/52 L 113/50 L Pulse Oximetry 100 100 Oxygen Delivery 03/21/25 16:00 03/21/25 18:00 03/21/25 19:37 Temperature 98.4 F Pulse Rate 71 70 71 Respiratory Rate 16 Blood Pressure 126/52 L Pulse Oximetry 100 Oxygen Delivery 03/21/25 20:00 03/21/25 20:00 03/21/25 20:44 Temperature Pulse Rate 69 69 70 Respiratory Rate 16 Blood Pressure Pulse Oximetry 97 Oxygen Delivery Autopap 03/21/25 21:44 03/21/25 21:51 03/21/25 23:29 Temperature 98.8 F Pulse Rate 68 70 96 Respiratory Rate 17 Blood Pressure 116/41 L Pulse Oximetry 97 96 Oxygen Delivery Autopap 03/22/25 00:00 03/22/25 00:00 03/22/25 02:00 Temperature Pulse Rate 69 69 43 L Respiratory Rate 17 Blood Pressure Pulse Oximetry 96 Oxygen Delivery Autopap 03/22/25 03:13 03/22/25 03:34 03/22/25 03:34 Temperature Pulse Rate 65 54 L 54 L Respiratory Rate 17 Blood Pressure Pulse Oximetry 95 95 Oxygen Delivery Autopap Autopap 03/22/25 04:19 03/22/25 05:54 03/22/25 07:45 Temperature 98.0 F 97.8 F Pulse Rate 59 L 68 69 Respiratory Rate 18 24 H Blood Pressure 104/53 L 126/52 L Pulse Oximetry 98 95 Oxygen Delivery 03/22/25 08:25 03/22/25 08:38 03/22/25 09:05 Temperature Pulse Rate 70 Respiratory Rate Blood Pressure Pulse Oximetry Oxygen Delivery Room Air Room Air Intake/Output Intake/Output: Intake & Output 03/19/25 03/20/25 03/21/25 03/22/25 23:59 23:59 23:59 23:59 Intake Total 1170 1260 1390 600 Output Total 2950 4800 2850 2400 Balance -1780 -3540 -1460 -1800 Meds/Results Medications: Active Medications Generic Name Dose Route Start Last Admin Trade Name Freq PRN Reason Stop Dose Admin Acetaminophen 500 mg 03/18/25 22:39 03/22/25 05:21 Acetaminophen 500 Mg Tablet PO 500 mg Q6H PRN Administration fever or pain Acetazolamide 250 mg 03/19/25 08:00 03/22/25 09:05 Acetazolamide Tab 250 Mg Tablet PO 250 mg DAILY@0800 ANGELA Administration Allopurinol 100 mg 03/19/25 08:00 03/22/25 09:05 Allopurinol 100 Mg Tablet PO 100 mg DAILY@0800 ANGELA Administration Apixaban 5 mg 03/18/25 22:45 03/22/25 09:06 Apixaban 5 Mg Tablet PO 5 mg Q12HR ANGELA Administration Bumetanide 2 mg 03/20/25 10:55 03/22/25 09:04 Bumetanide Inj 1 Mg/4 Ml Vial IV PUSH 2 mg BID ANGELA Administration Calcitriol 0.25 mcg 03/19/25 09:00 03/22/25 09:10 Calcitriol 0.25 Mcg Capsule PO 0.25 mcg MoWeFr ANGELA Administration Docusate Sodium 100 mg 03/19/25 09:00 03/22/25 09:05 Docusate Sodium 100 Mg Capsule PO 100 mg Q12HR ANGELA Administration Empagliflozin 10 mg 03/19/25 10:35 03/22/25 09:05 Empagliflozin 10 Mg Tablet PO 10 mg DAILY ANGELA Administration Ergocalciferol 1,250 mcg 03/22/25 09:00 03/22/25 09:05 Ergocalciferol (Vitamin D2) 1,250 Mcg (50,000 Units) Capsule PO 1,250 mcg WEEKLY ANGELA Administration Famotidine 20 mg 03/20/25 21:00 03/22/25 09:06 Famotidine 20 Mg Tablet PO 20 mg Q12HR ANGELA Administration Ferrous Sulfate 325 mg 03/19/25 09:00 03/22/25 09:05 Ferrous Sulfate 325 Mg Tablet PO 325 mg BID ANGELA Administration Fluticasone Propionate 1 spray 03/18/25 22:39 Fluticasone Propionate 0.05% Na Spr 16 Gm Btl (*Bkc) NASAL DAILY PRN Congestion Gabapentin 300 mg 03/20/25 14:00 03/22/25 05:21 Gabapentin 300 Mg Capsule PO 300 mg Q8HR ANGELA Administration Hyoscyamine 0.0625 mg 03/19/25 13:48 03/20/25 09:56 Hyoscyamine Sulfate 0.0625 Mg Tablet PO 0.0625 mg Q4H PRN Administration Bladder Spasm Ceftriaxone Sodium 1 gm/ 50 mls @ 100 mls/hr 03/19/25 21:00 03/21/25 21:15 Sodium Chloride IVPB 03/22/25 21:29 Infused Q24H [facility] Infusion Levothyroxine Sodium 200 mcg 03/19/25 06:30 03/22/25 05:22 Levothyroxine Sodium 100 Mcg Tablet PO 200 mcg DAILY@0630 ANGELA Administration Metolazone 5 mg 03/21/25 09:00 03/22/25 09:05 Metolazone 5 Mg Tablet PO 5 mg QAM ANGELA Administration Metoprolol Tartrate 50 mg 03/19/25 09:00 03/22/25 09:05 Metoprolol Tartrate 50 Mg Tab PO 50 mg Q12HR ANGELA Administration Midodrine 5 mg 03/20/25 13:00 03/22/25 09:05 Midodrine Hcl 2.5 Mg Tablet PO 5 mg TID ANGELA Administration Multi-Ingred Cream/Lotion/Oil/Oint 1 applic 03/19/25 09:00 03/22/25 09:06 Eucerin Cream 120 Gm Jar TOPICAL 1 applic DAILY ANGELA Administration Oxybutynin Chloride 5 mg 03/19/25 12:30 03/22/25 09:10 Oxybutynin Chloride 5 Mg Tablet PO 5 mg TID PRN Administration Bladder Spasm Polyethylene Glycol 17 gm 03/20/25 09:00 03/22/25 09:04 Polyethylene Glycol 3350 17 Gm Powd.Pack PO 17 gm DAILY ANGELA Administration Potassium Chloride 20 meq 03/19/25 08:00 03/22/25 09:04 Potassium Chloride 20 Meq Er Tablet PO 20 meq TIDWM ANGELA Administration Spironolactone 25 mg 03/19/25 09:00 03/22/25 09:06 Spironolactone 25 Mg Tablet PO 25 mg DAILY ANGELA Administration Tamsulosin HCl 0.4 mg 03/19/25 09:00 03/22/25 09:05 Tamsulosin Hcl 0.4 Mg Capsule PO 0.4 mg QAM ANGELA Administration Radiology Results: ITS Impressions Chest X-Ray 03/18/25 13:29 IMPRESSION: 1. No acute cardiopulmonary findings given portable technique. Consider PA and lateral films with deep inspiration. Labs Labs: Laboratory Results - last 24 hr 03/21/25 03/22/25 03/22/25 04:20 04:15 04:17 WBC 6.8 RBC 3.64 L Hgb 9.0 L Hct 31.6 L MCV 86.8 MCH 24.7 L MCHC 28.5 L RDW 16.0 H Plt Count 252 MPV 9.7 Sodium 127 L Potassium 3.5 Chloride 93 L Carbon Dioxide 32 H Anion Gap 2 L BUN 57 H Creatinine 2.30 H Estim Creat Clear Calc 38 Estimated GFR 28 L Glucose 87 Calcium 8.1 L Phosphorus 5.1 H Magnesium 2.5 H Cancelled Total Creatine Kinase 36 L Albumin 2.5 L
--- NOTE | 2025-03-22 14:50 | PM.IMPN2 ---
Assessment and Plan Assessment and Plan (1) Acute on chronic diastolic heart failure: Code(s): I50.33 - Acute on chronic diastolic (congestive) heart failure Status: Acute Assessment and Plan: -echo on 12/17/2024 was read as left ventricular systolic function is normal estimated at 65-70, left ventricular diastolic function is abnormal. -patient 2+ the 3+ pitting edema to left lower extremity. -IV Bumex has been ordered. The patient got a dose of Lasix in the emergency room. Monitor renal function closely. Continue with potassium supplement as well. -continue with Aldactone. -continue with Zaroxolyn -cardiology consulted: Appreciate nephrology input. Midodrine was added to help with BP Decrease Bumex to 1mg IV BID Continue metolazone Continue spironolactone Continue metoprolol with holding parameters (hold for SBP<110mm Hg) Continue empagliflozin Continue Eliquis for anticoagulation for A fib/flutter Check weight, ins and outs, and renal function daily Check and replace electrolytes to keep K>4 and Mg>2 Monitor on telemetry 03/22 - cardiology, DR Kirk was not sure why pt on minoxidil- so i was held- will let cardiology decide if pt needs to be on it or not -i/o reviewed, he is diuresing well. (2) Cardiac enzymes elevated: Code(s): R74.8 - Abnormal levels of other serum enzymes Status: Acute Assessment and Plan: -cardiology has been consulted. -troponin 0.057, 0.061. Repeat troponin in the a.m.. -the patient is not short of breath or having any chest pain. -this could be related to his CHF and are chronic renal failure. (3) UTI (urinary tract infection): Code(s): N39.0 - Urinary tract infection, site not specified Status: Acute Assessment and Plan: -he was started on Rocephin. -blood and urine cultures are pending -conitunue IV antibiotics for now (4) Atrial fibrillation: Qualifiers: Atrial fibrillation type: longstanding persistent Qualified Code(s): I48.11 - Longstanding persistent atrial fibrillation Code(s): I48.91 - Unspecified atrial fibrillation Status: Chronic Assessment and Plan: -the patient is currently in sinus rhythm. -continue with Eliquis -continue with metoprolol -rate is controlled at this time. - bleeding precautions (5) Venous stasis dermatitis: Code(s): I87.2 - Venous insufficiency (chronic) (peripheral) Status: Acute Assessment and Plan: -continue with lanolin oil patient has a right [id number] amputation that is fairly new from a couple months ago. (6) Peripheral vascular disease: Code(s): I73.9 - Peripheral vascular disease, unspecified Status: Acute Assessment and Plan: -the patient is on apixaban. (7) Dyslipidemia: Code(s): E78.5 - Hyperlipidemia, unspecified Status: Acute Assessment and Plan: -continue with home medications. The patient does not appear to be on any statins for unknown reasons. (8) Hypothyroidism: Qualifiers: Hypothyroidism type: acquired Qualified Code(s): E03.9 - Hypothyroidism, unspecified Code(s): E03.9 - Hypothyroidism, unspecified Status: Chronic Assessment and Plan: -continue with levothyroxine (9) CKD (chronic kidney disease) stage 3, GFR 30-59 ml/min: Qualifiers: Chronic kidney disease stage 3 subtype: stage 3b (GFR 30-44) Qualified Code(s): N18.32 - Chronic kidney disease, stage 3b Code(s): N18.3 - Chronic kidney disease, stage 3 (moderate) Status: Acute Assessment and Plan: -creatinine 2.84 which is slightly above his baseline of 1.9-2.8. His GFR is 22 which is slightly lower than his baseline of 31-34 -monitor BMP daily. -may consider Nephrology consult if labs worsen with diuretics. -nephrology consulted: at this point will give him midodrine to get the blood pressure back up, and continue diuretics. I will increase the metolazone to5mg once a day, change his bumetanide to2mg IV twice a day, and continue the spironolactone and acetazolamide 03/22 continue diuresing monitor daily labs (10) Anemia of chronic disease: Code(s): D63.8 - Anemia in other chronic diseases classified elsewhere Status: Acute Assessment and Plan: -the patient is slightly above his baseline. This appears to be stable. Most likely secondary to his chronic renal failure. - monitor (11) AMELIA (obstructive sleep apnea): Code(s): G47.33 - Obstructive sleep apnea (adult) (pediatric) Status: Chronic Assessment and Plan: The patient brought his own CPAP machine, he may continue to use this . (12) Gout: Qualifiers: Gout site: multiple sites Gout etiology: unspecified cause Chronicity: chronic Qualified Code(s): M1A.09X0 - Idiopathic chronic gout, multiple sites, without tophus (tophi) Code(s): M10.9 - Gout, unspecified Status: Acute (13) Rosacea: Code(s): L71.9 - Rosacea, unspecified Status: Acute Plan The patient has chronic hyponatremia. Most likely secondary to his CHF with 3rd spacing. Medical Record Review I have reviewed the following patient records and this information was taken into consideration when formulating the assessment and plan.: previous labs Time Spent With Patient Time with patient: Greater than 35 minutes Subjective Date/time seen: 03/22/25 14:50 Interval history: pt is seen and examined. he is resting in bed with eyes closed. still very weak, appetite is poor. Review of Systems Constitutional: Constitutional: Reports as per HPI and Reports no additional constitutional complaints Eyes: Eyes: Reports as per HPI and Reports no additional eye complaints ENT: Reports system reviewed and no additional complaints, except as documented and Reports Normal hearing present Cardiovascular: Cardiovascular: Reports no additional cardiovascular complaints Respiratory: Respiratory: Reports as per HPI and Reports no additional respiratory complaints Gastrointestinal: Gastrointestinal: Reports as per HPI and Reports no additional gastrointestinal complaints Musculoskeletal: Musculoskeletal: Reports no additional musculoskeletal complaints Integumentary/Breasts: Skin/Breast: Reports system reviewed and no additional complaints, except as docu Neurologic: Reports system reviewed and no additional complaints, except as documented and Reports Normal hearing present Psychiatric: Psychiatric: Reports no additional psychiatric complaints and Reports as per HPI Hematologic/Lymphatic: Hematologic/Lymphatic: Reports no additional hematologic/lymphatic complaints Allergic/Immunologic: Allergic/Immunologic: Reports no additional allergic/immunologic complaints Exam Const: General: cooperative, comfortable, no acute distress and well developed HENMT: Head: normal to inspection Eyes: General: appearance normal, both eyes and all related structures Eyelids: eyelids normal Neck: Neck: normal visual inspection, full ROM and no lymphadenopathy Chest: Chest palpation & inspection: normal inspection of the chest Resp: Effort & Inspection: normal respiratory effort Auscultation: clear to auscultation bilaterally Cardio: Palpation: normal PMI Rate: regular rate Rhythm: regular rhythm Heart sounds: S1 normal heart sound present and S2 normal heart sound present GI: Inspection: normal to inspection Auscultation: normal bowel sounds : General: Yes no CVA tenderness Back/Spine/Pelvis: Back: no CVA tenderness Cervical Spine: cervical ROM normal Skin: General skin exam: normal color Lesions: no lesions Rashes: no rashes Trauma: no lacerations or abrasions Wounds: no wounds Hair: normal Nails: normal Neuro: General: oriented to person, oriented to place, oriented to time and patient oriented x3 Cranial nerves: Yes Normal hearing present Cognition (Neuro): normal cognition Speech: normal speech Extrem: General: normal to inspection and edema Right upper extremity: normal to inspection and shoulder/upper arm Left upper extremity: normal to inspection and shoulder/upper arm Psych: Appearance: grossly normal Mental Status: mental status grossly normal Speech and movement: Normal speech and movement present Affect: normal affect Attitude: cooperative Thought process: Normal thought process present Insight: Good insight present (Psych) Judgement: Good judgement present (Psych) Objective Data Vital Signs Vital Signs: Vital Signs - 24 hr 03/21/25 16:00 03/21/25 16:00 03/21/25 18:00 Temperature 98.5 F Pulse Rate 71 71 70 Respiratory Rate 20 Blood Pressure 113/50 L Pulse Oximetry 100 Oxygen Delivery 03/21/25 19:37 03/21/25 20:00 03/21/25 20:00 Temperature 98.4 F Pulse Rate 71 69 69 Respiratory Rate 16 16 Blood Pressure 126/52 L Pulse Oximetry 100 97 Oxygen Delivery Autopap 03/21/25 20:44 03/21/25 21:44 03/21/25 21:51 Temperature Pulse Rate 70 68 70 Respiratory Rate Blood Pressure Pulse Oximetry 97 Oxygen Delivery Autopap 03/21/25 23:29 03/22/25 00:00 03/22/25 00:00 Temperature 98.8 F Pulse Rate 96 69 69 Respiratory Rate 17 17 Blood Pressure 116/41 L Pulse Oximetry 96 96 Oxygen Delivery Autopap 03/22/25 02:00 03/22/25 03:13 03/22/25 03:34 Temperature Pulse Rate 43 L 65 54 L Respiratory Rate 17 Blood Pressure Pulse Oximetry 95 95 Oxygen Delivery Autopap Autopap 03/22/25 03:34 03/22/25 04:19 03/22/25 05:54 Temperature 98.0 F Pulse Rate 54 L 59 L 68 Respiratory Rate 18 Blood Pressure 104/53 L Pulse Oximetry 98 Oxygen Delivery 03/22/25 07:45 03/22/25 08:00 03/22/25 08:25 Temperature 97.8 F Pulse Rate 69 72 Respiratory Rate 24 H Blood Pressure 126/52 L Pulse Oximetry 95 Oxygen Delivery Room Air 03/22/25 08:38 03/22/25 09:05 03/22/25 10:00 Temperature Pulse Rate 70 71 Respiratory Rate Blood Pressure Pulse Oximetry Oxygen Delivery Room Air 03/22/25 11:10 Temperature 97.6 F Pulse Rate 70 Respiratory Rate 22 H Blood Pressure 124/58 L Pulse Oximetry 100 Oxygen Delivery Intake/Output Intake/Output: Intake & Output 03/19/25 03/20/25 03/21/25 03/22/25 23:59 23:59 23:59 23:59 Intake Total 1170 1260 1390 840 Output Total 2950 4800 2850 3750 Balance -1780 -3540 -1460 -2910 Meds/Results Medications: Active Medications Generic Name Dose Route Start Last Admin Trade Name Freq PRN Reason Stop Dose Admin Acetaminophen 500 mg 03/18/25 22:39 03/22/25 05:21 Acetaminophen 500 Mg Tablet PO 500 mg Q6H PRN Administration fever or pain Acetazolamide 250 mg 03/19/25 08:00 03/22/25 09:05 Acetazolamide Tab 250 Mg Tablet PO 250 mg DAILY@0800 [facility] Administration Allopurinol 100 mg 03/19/25 08:00 03/22/25 09:05 Allopurinol 100 Mg Tablet PO 100 mg DAILY@0800 ANGELA Administration Apixaban 5 mg 03/18/25 22:45 03/22/25 09:06 Apixaban 5 Mg Tablet PO 5 mg Q12HR ANGELA Administration Bumetanide 2 mg 03/20/25 10:55 03/22/25 09:04 Bumetanide Inj 1 Mg/4 Ml Vial IV PUSH 2 mg BID ANGELA Administration Calcitriol 0.25 mcg 03/19/25 09:00 03/22/25 09:10 Calcitriol 0.25 Mcg Capsule PO 0.25 mcg MoWeFr [facility] Administration Docusate Sodium 100 mg 03/19/25 09:00 03/22/25 09:05 Docusate Sodium 100 Mg Capsule PO 100 mg Q12HR ANGELA Administration Empagliflozin 10 mg 03/19/25 10:35 03/22/25 09:05 Empagliflozin 10 Mg Tablet PO 10 mg DAILY ANGELA Administration Ergocalciferol 1,250 mcg 03/22/25 09:00 03/22/25 09:05 Ergocalciferol (Vitamin D2) 1,250 Mcg (50,000 Units) Capsule PO 1,250 mcg WEEKLY ANGELA Administration Ergocalciferol 1,250 mcg 03/22/25 09:00 03/22/25 12:54 Ergocalciferol (Vitamin D2) 1,250 Mcg (50,000 Units) Capsule PO 1,250 mcg WEEKLY ANGELA Administration Famotidine 20 mg 03/20/25 21:00 03/22/25 09:06 Famotidine 20 Mg Tablet PO 20 mg Q12HR ANGELA Administration Ferrous Sulfate 325 mg 03/19/25 09:00 03/22/25 09:05 Ferrous Sulfate 325 Mg Tablet PO 325 mg BID ANGELA Administration Fluticasone Propionate 1 spray 03/18/25 22:39 Fluticasone Propionate 0.05% Na Spr 16 Gm Btl (*Bkc) NASAL DAILY PRN Congestion Gabapentin 300 mg 03/20/25 14:00 03/22/25 12:54 Gabapentin 300 Mg Capsule PO 300 mg Q8HR ANGELA Administration Hyoscyamine 0.0625 mg 03/19/25 13:48 03/20/25 09:56 Hyoscyamine Sulfate 0.0625 Mg Tablet PO 0.0625 mg Q4H PRN Administration Bladder Spasm Ceftriaxone Sodium 1 gm/ 50 mls @ 100 mls/hr 03/19/25 21:00 03/21/25 21:15 Sodium Chloride IVPB 03/22/25 21:29 Infused Q24H [facility] Infusion Levothyroxine Sodium 200 mcg 03/19/25 06:30 03/22/25 05:22 Levothyroxine Sodium 100 Mcg Tablet PO 200 mcg DAILY@0630 ANGELA Administration Metolazone 5 mg 03/21/25 09:00 03/22/25 09:05 Metolazone 5 Mg Tablet PO 5 mg QAM ANGELA Administration Metoprolol Tartrate 50 mg 03/19/25 09:00 03/22/25 09:05 Metoprolol Tartrate 50 Mg Tab PO 50 mg Q12HR ANGELA Administration Midodrine 5 mg 03/20/25 13:00 03/22/25 12:54 Midodrine Hcl 2.5 Mg Tablet PO 5 mg TID ANGELA Administration Multi-Ingred Cream/Lotion/Oil/Oint 1 applic 03/19/25 09:00 03/22/25 09:06 Eucerin Cream 120 Gm Jar TOPICAL 1 applic DAILY ANGELA Administration Oxybutynin Chloride 5 mg 03/19/25 12:30 03/22/25 09:10 Oxybutynin Chloride 5 Mg Tablet PO 5 mg TID PRN Administration Bladder Spasm Polyethylene Glycol 17 gm 03/20/25 09:00 03/22/25 09:04 Polyethylene Glycol 3350 17 Gm Powd.Pack PO 17 gm DAILY ANGELA Administration Potassium Chloride 20 meq 03/19/25 08:00 03/22/25 12:54 Potassium Chloride 20 Meq Er Tablet PO 20 meq TIDWM ANGELA Administration Spironolactone 25 mg 03/19/25 09:00 03/22/25 09:06 Spironolactone 25 Mg Tablet PO 25 mg DAILY ANGELA Administration Tamsulosin HCl 0.4 mg 03/19/25 09:00 03/22/25 09:05 Tamsulosin Hcl 0.4 Mg Capsule PO 0.4 mg QAM ANGELA Administration Radiology Results: ITS Impressions Chest X-Ray 03/18/25 13:29 IMPRESSION: 1. No acute cardiopulmonary findings given portable technique. Consider PA and lateral films with deep inspiration. Labs Labs: Laboratory Results - last 24 hr 03/22/25 03/22/25 04:15 04:17 WBC 6.8 RBC 3.64 L Hgb 9.0 L Hct 31.6 L MCV 86.8 MCH 24.7 L MCHC 28.5 L RDW 16.0 H Plt Count 252 MPV 9.7 Sodium 127 L Potassium 3.5 Chloride 93 L Carbon Dioxide 32 H Anion Gap 2 L BUN 57 H Creatinine 2.30 H Estim Creat Clear Calc 38 Estimated GFR 28 L Glucose 87 Calcium 8.1 L Phosphorus 5.1 H Magnesium 2.5 H Cancelled Albumin 2.5 L Quality VTE Prophylaxis VTE prophylaxis: pharmacologic ordered
--- NOTE | 2025-03-22 18:18 | PC.NURSE ---
This patient, Irwin Cyr Jr., was transferred to [[id number] ] on 03/22/25 at 1819. Personal belongings sent with patient. Report given to [AARON Pete @ [phone] ]. Appropriate documentation sent with patient.
--- NOTE | 2025-03-22 18:47 | PC.NURSE ---
This patient, Irwin Cyr , was received from on 03/22/25 at 1840. Patient/family oriented to unit policies and routines.
[2025-03-22] MEDS: cefTRIAXone 1 GM in SODIUM CHLORIDE 0.9% IV 50 ML 100 ML IVPB (21:06)
[2025-03-23] VITALS (7 sets, daily range): BP systolic 118–124; BP diastolic 52–62; PULSE 59–68; RESP 17–18; TEMP 36.1–36.6; O2SAT 96–99
[2025-03-23] MEDS: GABAPENTIN 300 MG CAPSULE PO ×3 (05:27→21:57)
[2025-03-23] MEDS: LEVOTHYROXINE SODIUM 100 MCG TABLET 200 MCG PO (05:30)
[2025-03-23 05:56] LABS: Hematocrit 34.1 % (42.0-52.0); Hemoglobin 9.6 g/dL (14.0-18.0); Mean Corpuscular HGB Conc 28.2 g/dl (32-36); Mean Corpuscular Hemoglobin 24.8 pg (26-34); Mean Corpuscular Volume 88.1 fl (80-100); Platelet Count Result 254 k/mm3 (150-375); Red Blood Count 3.87 M/mm3 (4.6-6.20); White Blood Count 7.2 K/mm3 (4.5-10.0)
[2025-03-23 06:21] LABS: Albumin Level 2.6 g/dL (3.5-5.1); Anion Gap 2 mmol/L (4-12); Blood Urea Nitrogen 51 mg/dL (9-20); Calcium 8.3 mg/dL (8.4-10.2); Carbon Dioxide 35 mmol/L (22-30); Chloride 92 mmol/L (98-107); Estimated CRCL calculation 40 ml/min; Estimated Glomerular Filt Rate 30; Glucose 85 mg/dL (65-110); Potassium 3.4 mmol/L (3.4-5.0); Sodium 129 mmol/L (137-145)
--- NOTE | 2025-03-23 08:03 | PM.PNNEP ---
Progress Note: A&P Assessment and Plan (1) JENA (acute kidney injury): Code(s): N17.9 - Acute kidney failure, unspecified Status: Acute Assessment and Plan: the patient has chronic kidney disease. This is most likely due to poor heart function, hypertension, and possibly vascular disease. His baseline creatinine seems to run about 1.7-2.0. This is while on 4 different diuretic and so his kidney function would probably be better if his heart was not so bad. The patient has acute kidney injury as well. His admission creatinine was up to 2.84. Creatinine has been improving every day. Now is down to 2.16. This is very close to his baseline. Fractional excretion of urea pre renal. most likely JENA due to renal venous hypertension. will continue diuresis; This seems to be helping both his kidneys and his swelling. blood pressure doing well with the midodrine. Continue midodrine. Continue higher dose diuretics. continue to follow lab work (2) Anasarca: Code(s): R60.1 - Generalized edema Status: Acute Assessment and Plan: this is due to his severe right-sided heart failure. this may be due to his chronic sleep apnea, but this is being treated now with the CPAP machine and minoxidil. He does not have much protein in the urine.. He is off the minoxidil. Blood pressure is doing well with this echocardiogram shows normal LV function, mild tricuspid regurgitation, no pulmonary hypertension. (3) Anemia of chronic disease: Code(s): D63.8 - Anemia in other chronic diseases classified elsewhere Status: Acute Assessment and Plan: hemoglobin is 9.2. TSAT is low. will give iron after antibiotics are done B12 is low will supplement (4) Pyuria: Code(s): R82.81 - Pyuria Status: Acute Assessment and Plan: Urine culture is negative. Blood cultures are pending (5) Chronic hyponatremia: Code(s): E87.1 - Hypo-osmolality and hyponatremia Status: Acute Assessment and Plan: his sodium level is mildly low. This is chronic. Most likely due to the diuretics. (6) Essential (primary) hypertension: Code(s): I10 - Essential (primary) hypertension Status: Chronic Assessment and Plan: minoxidil is on hold. He probably should not get this anyway because of his severe swelling. blood pressure is doing fine right now (7) Dyslipidemia: Code(s): E78.5 - Hyperlipidemia, unspecified Status: Acute (8) Atrial fibrillation: Qualifiers: Atrial fibrillation type: longstanding persistent Qualified Code(s): I48.11 - Longstanding persistent atrial fibrillation Code(s): I48.91 - Unspecified atrial fibrillation Status: Chronic Assessment and Plan: Heart rate is good at 70. Will reduce metoprolol to25mg twice a day to help with the blood pressure. (9) Vitamin D deficiency: Code(s): E55.9 - Vitamin D deficiency, unspecified Status: Acute Assessment and Plan: vitamin-D is low Subjective Date/time seen: 03/23/25 08:03 Interval history: Patient is alert. Still has aches and pains everywhere. Refusing physical therapy because of the aches and pains. We discussed that longer is here without physical therapy the week or he will get. Exam Narrative: WDWN in NAD skin no rash head ncat lungs clear bilaterally cor reg no rub or gallop abd BS+ nontender and soft ext 2-3+ bilateral edema. Scrotum seems to be less swollen. Objective Data Vital Signs Vital Signs: Vital Signs - 24 hr 03/22/25 08:25 03/22/25 08:38 03/22/25 09:05 Temperature Pulse Rate 70 Respiratory Rate Blood Pressure Pulse Oximetry Oxygen Delivery Room Air Room Air Fraction of Inspired Oxygen 03/22/25 10:00 03/22/25 11:10 03/22/25 12:00 Temperature 97.6 F Pulse Rate 71 70 66 Respiratory Rate 22 H Blood Pressure 124/58 L Pulse Oximetry 100 Oxygen Delivery Fraction of Inspired Oxygen 03/22/25 14:00 03/22/25 15:00 03/22/25 20:00 Temperature 98 F Pulse Rate 86 70 Respiratory Rate 16 Blood Pressure 114/48 L Pulse Oximetry 98 Oxygen Delivery Room Air Fraction of Inspired Oxygen 03/22/25 20:21 03/22/25 21:00 03/22/25 21:37 Temperature 97.2 F L Pulse Rate 72 84 70 Respiratory Rate 20 18 Blood Pressure 129/59 L Pulse Oximetry 97 69 L Oxygen Delivery Room Air Fraction of Inspired Oxygen 03/22/25 23:30 03/23/25 01:11 03/23/25 03:04 Temperature Pulse Rate 65 Respiratory Rate Blood Pressure Pulse Oximetry 96 Oxygen Delivery Autopap Autopap Autopap Fraction of Inspired Oxygen 03/23/25 03:45 Temperature Pulse Rate Respiratory Rate Blood Pressure Pulse Oximetry Oxygen Delivery Autopap Fraction of Inspired Oxygen Intake/Output Intake/Output: Intake & Output 03/20/25 03/21/25 03/22/25 03/23/25 23:59 23:59 23:59 23:59 Intake Total 1260 1390 1730 550 Output Total 4800 2850 4300 2350 Balance -4235 -6217 -5123 -8749 Meds/Results Medications: Active Medications Generic Name Dose Route Start Last Admin Trade Name Freq PRN Reason Stop Dose Admin Acetaminophen 500 mg 03/18/25 22:39 03/22/25 20:59 Acetaminophen 500 Mg Tablet PO 500 mg Q6H PRN Administration fever or pain Acetazolamide 250 mg 03/19/25 08:00 03/22/25 09:05 Acetazolamide Tab 250 Mg Tablet PO 250 mg DAILY@0800 ANGELA Administration Allopurinol 100 mg 03/19/25 08:00 03/22/25 09:05 Allopurinol 100 Mg Tablet PO 100 mg DAILY@0800 ANGELA Administration Apixaban 5 mg 03/18/25 22:45 03/22/25 20:59 Apixaban 5 Mg Tablet PO 5 mg Q12HR ANGELA Administration Bumetanide 2 mg 03/20/25 10:55 03/22/25 17:45 Bumetanide Inj 1 Mg/4 Ml Vial IV PUSH 2 mg BID ANGELA Administration Calcitriol 0.25 mcg 03/19/25 09:00 03/22/25 09:10 Calcitriol 0.25 Mcg Capsule PO 0.25 mcg MoWeFr ANGELA Administration Docusate Sodium 100 mg 03/19/25 09:00 03/22/25 21:00 Docusate Sodium 100 Mg Capsule PO 100 mg Q12HR ANGELA Administration Empagliflozin 10 mg 03/19/25 10:35 03/22/25 09:05 Empagliflozin 10 Mg Tablet PO 10 mg DAILY ANGELA Administration Ergocalciferol 1,250 mcg 03/22/25 09:00 03/22/25 09:05 Ergocalciferol (Vitamin D2) 1,250 Mcg (50,000 Units) Capsule PO 1,250 mcg WEEKLY ANGELA Administration Ergocalciferol 1,250 mcg 03/22/25 09:00 03/22/25 12:54 Ergocalciferol (Vitamin D2) 1,250 Mcg (50,000 Units) Capsule PO 1,250 mcg WEEKLY ANGELA Administration Famotidine 20 mg 03/20/25 21:00 03/22/25 21:00 Famotidine 20 Mg Tablet PO 20 mg Q12HR ANGELA Administration Ferrous Sulfate 325 mg 03/19/25 09:00 03/22/25 17:45 Ferrous Sulfate 325 Mg Tablet PO 325 mg BID ANGELA Administration Fluticasone Propionate 1 spray 03/18/25 22:39 Fluticasone Propionate 0.05% Na Spr 16 Gm Btl (*Bkc) NASAL DAILY PRN Congestion Gabapentin 300 mg 03/20/25 14:00 03/23/25 05:27 Gabapentin 300 Mg Capsule PO 300 mg Q8HR ANGELA Administration Hyoscyamine 0.0625 mg 03/19/25 13:48 03/20/25 09:56 Hyoscyamine Sulfate 0.0625 Mg Tablet PO 0.0625 mg Q4H PRN Administration Bladder Spasm Levothyroxine Sodium 200 mcg 03/19/25 06:30 03/23/25 05:30 Levothyroxine Sodium 100 Mcg Tablet PO 200 mcg DAILY@0630 ANGELA Administration Metolazone 5 mg 03/21/25 09:00 03/22/25 09:05 Metolazone 5 Mg Tablet PO 5 mg QAM ANGELA Administration Metoprolol Tartrate 50 mg 03/19/25 09:00 03/22/25 21:00 Metoprolol Tartrate 50 Mg Tab PO 50 mg Q12HR ANGELA Administration Midodrine 5 mg 03/20/25 13:00 03/22/25 17:45 Midodrine Hcl 2.5 Mg Tablet PO 5 mg TID ANGELA Administration Multi-Ingred Cream/Lotion/Oil/Oint 1 applic 03/19/25 09:00 03/22/25 09:06 Eucerin Cream 120 Gm Jar TOPICAL 1 applic DAILY ANGELA Administration Oxybutynin Chloride 5 mg 03/19/25 12:30 03/22/25 09:10 Oxybutynin Chloride 5 Mg Tablet PO 5 mg TID PRN Administration Bladder Spasm Polyethylene Glycol 17 gm 03/20/25 09:00 03/22/25 09:04 Polyethylene Glycol 3350 17 Gm Powd.Pack PO 17 gm DAILY ANGELA Administration Potassium Chloride 20 meq 03/19/25 08:00 03/22/25 17:45 Potassium Chloride 20 Meq Er Tablet PO 20 meq TIDWM ANGELA Administration Spironolactone 25 mg 03/19/25 09:00 03/22/25 09:06 Spironolactone 25 Mg Tablet PO 25 mg DAILY ANGELA Administration Tamsulosin HCl 0.4 mg 03/19/25 09:00 03/22/25 09:05 Tamsulosin Hcl 0.4 Mg Capsule PO 0.4 mg QAM ANGELA Administration Radiology Results: ITS Impressions Chest X-Ray 03/18/25 13:29 IMPRESSION: 1. No acute cardiopulmonary findings given portable technique. Consider PA and lateral films with deep inspiration. Labs Labs: Laboratory Results - last 24 hr 03/23/25 05:27 WBC 7.2 RBC 3.87 L Hgb 9.6 L Hct 34.1 L MCV 88.1 MCH 24.8 L MCHC 28.2 L RDW 16.4 H Plt Count 254 MPV 9.9 Sodium 129 L Potassium 3.4 Chloride 92 L Carbon Dioxide 35 H Anion Gap 2 L BUN 51 H Creatinine 2.16 H Estim Creat Clear Calc 40 Estimated GFR 30 L Glucose 85 Calcium 8.3 L Phosphorus 4.5 Albumin 2.6 L
[2025-03-23] MEDS: EMPAGLIFLOZIN 10 MG TABLET PO (09:34)
[2025-03-23] MEDS: FERROUS SULFATE 325 MG TABLET PO ×2 (09:34→17:59)
[2025-03-23] MEDS: POTASSIUM CHLORIDE 20 MEQ ER TABLET PO ×3 (09:34→17:59)
[2025-03-23] MEDS: DOCUSATE SODIUM 100 MG CAPSULE PO ×2 (09:34→21:52)
[2025-03-23] MEDS: FAMOTIDINE 20 MG TABLET PO ×2 (09:34→21:52)
[2025-03-23] MEDS: METOPROLOL TARTRATE 50 MG TAB PO ×2 (09:34→21:58)
[2025-03-23] MEDS: TAMSULOSIN HCL 0.4 MG CAPSULE PO (09:34)
[2025-03-23] MEDS: SPIRONOLACTONE 25 MG TABLET PO (09:34)
[2025-03-23] MEDS: APIXABAN 5 MG TABLET PO ×2 (09:35→21:52)
[2025-03-23] MEDS: BUMETANIDE INJ 1 MG/4 ML VIAL 2 MG IV PUSH ×2 (09:35→17:59)
[2025-03-23] MEDS: ACETAMINOPHEN 500 MG TABLET PO ×2 (09:35→21:52)
[2025-03-23] MEDS: MIDODRINE HCL 2.5 MG TABLET 5 MG PO ×3 (09:35→17:59)
[2025-03-23] MEDS: acetaZOLAMIDE TAB 250 MG TABLET PO (09:35)
[2025-03-23] MEDS: EUCERIN CREAM 120 GM JAR 1 APPLIC TOPICAL (09:40)
--- NOTE | 2025-03-23 11:04 | PM.PNCARD ---
Progress Note: A&P Assessment and Plan (1) Acute on chronic diastolic heart failure: Code(s): I50.33 - Acute on chronic diastolic (congestive) heart failure Status: Acute (2) Atrial fibrillation: Qualifiers: Atrial fibrillation type: longstanding persistent Qualified Code(s): I48.11 - Longstanding persistent atrial fibrillation Code(s): I48.91 - Unspecified atrial fibrillation Status: Chronic Plan 75-year-old man with chronic diastolic heart failure, chronic right ventricular heart failure, paroxysmal atrial fibrillation, chronic kidney disease stage IIIA, peripheral vascular disease status post right BKA, hypertension, hyperlipidemia, AMELIA on CPAP, and morbid obesity presents with shortness of breath and anasarca Acute on chronic diastolic heart failure -continue Bumex 2mg IV push b.i.d. and metolazone 5 mg p.o. daily -continue Jardiance 10 mg p.o. daily, spironolactone 25 mg p.o. daily -on azetazolamide 250mg PO daily -require midodrine 5 mg p.o. t.i.d. while being diuresed Acute on chronic right ventricular heart failure -significantly volume overloaded with pitting edema up to his abdomen and involving his scrotum -continue diuresis Paroxysmal atrial fibrillation -controlled on Lopressor 50 mg p.o. b.i.d. -continue Eliquis 5 mg p.o. b.i.d. Subjective Date/time seen: 03/23/25 11:04 Interval history: Denies any chest discomfort. Has some mild orthopnea. Has shortness of breath with minimal physical activity. While swelling has improved, he still has severe swelling that is nowhere close to his baseline. Occasional lightheadedness Review of Systems Cardiovascular: Cardiovascular: Reports as per HPI Respiratory: Respiratory: Reports as per HPI Exam Const: General: comfortable HENMT: Mouth: Yes moist mucous membranes Eyes: EOM: EOMs intact bilaterally Neck: Neck: no JVD Resp: Auscultation: diminished lung sounds Cardio: Rate: regular rate Rhythm: regular rhythm Extrem: General: edema and pedal edema Objective Data Vital Signs Vital Signs: Vital Signs - 24 hr 03/22/25 11:10 03/22/25 12:00 03/22/25 14:00 Temperature 36.4 C Pulse Rate 70 66 86 Respiratory Rate 22 H Blood Pressure 124/58 L Pulse Oximetry 100 Oxygen Delivery Fraction of Inspired Oxygen 03/22/25 15:00 03/22/25 20:00 03/22/25 20:21 Temperature 36.6 C Pulse Rate 70 72 Respiratory Rate 16 20 Blood Pressure 114/48 L Pulse Oximetry 98 97 Oxygen Delivery Room Air Room Air Fraction of Inspired Oxygen 21 03/22/25 21:00 03/22/25 21:37 03/22/25 23:30 Temperature 36.2 C L Pulse Rate 84 70 Respiratory Rate 18 Blood Pressure 129/59 L Pulse Oximetry 69 L Oxygen Delivery Autopap Fraction of Inspired Oxygen 03/23/25 01:11 03/23/25 03:04 03/23/25 03:45 Temperature Pulse Rate 65 Respiratory Rate Blood Pressure Pulse Oximetry 96 Oxygen Delivery Autopap Autopap Autopap Fraction of Inspired Oxygen 03/23/25 09:34 Temperature Pulse Rate 68 Respiratory Rate Blood Pressure Pulse Oximetry Oxygen Delivery Fraction of Inspired Oxygen Intake/Output Intake/Output: Intake & Output 03/20/25 03/21/25 03/22/25 03/23/25 23:59 23:59 23:59 23:59 Intake Total 1260 1390 1730 790 Output Total 4800 2850 4300 2350 [facility]3264 -1460 -2570 -1560 Meds/Results Medications: Active Medications Generic Name Dose Route Start Last Admin Trade Name Freq PRN Reason Stop Dose Admin Acetaminophen 500 mg 03/18/25 22:39 03/23/25 09:35 Acetaminophen 500 Mg Tablet PO 500 mg Q6H PRN Administration fever or pain Acetazolamide 250 mg 03/19/25 08:00 03/23/25 09:35 Acetazolamide Tab 250 Mg Tablet PO 250 mg DAILY@0800 ANGELA Administration Allopurinol 100 mg 03/19/25 08:00 03/23/25 09:34 Allopurinol 100 Mg Tablet PO 100 mg DAILY@0800 [facility] Administration Apixaban 5 mg 03/18/25 22:45 03/23/25 09:35 Apixaban 5 Mg Tablet PO 5 mg Q12HR ANGELA Administration Bumetanide 2 mg 03/20/25 10:55 03/23/25 09:35 Bumetanide Inj 1 Mg/4 Ml Vial IV PUSH 2 mg BID ANGELA Administration Calcitriol 0.25 mcg 03/19/25 09:00 03/22/25 09:10 Calcitriol 0.25 Mcg Capsule PO 0.25 mcg MoWeFr ANGELA Administration Docusate Sodium 100 mg 03/19/25 09:00 03/23/25 09:34 Docusate Sodium 100 Mg Capsule PO 100 mg Q12HR ANGELA Administration Empagliflozin 10 mg 03/19/25 10:35 03/23/25 09:34 Empagliflozin 10 Mg Tablet PO 10 mg DAILY ANGELA Administration Ergocalciferol 1,250 mcg 03/22/25 09:00 03/22/25 09:05 Ergocalciferol (Vitamin D2) 1,250 Mcg (50,000 Units) Capsule PO 1,250 mcg WEEKLY ANGELA Administration Ergocalciferol 1,250 mcg 03/22/25 09:00 03/22/25 12:54 Ergocalciferol (Vitamin D2) 1,250 Mcg (50,000 Units) Capsule PO 1,250 mcg WEEKLY ANGELA Administration Famotidine 20 mg 03/20/25 21:00 03/23/25 09:34 Famotidine 20 Mg Tablet PO 20 mg Q12HR ANGELA Administration Ferrous Sulfate 325 mg 03/19/25 09:00 03/23/25 09:34 Ferrous Sulfate 325 Mg Tablet PO 325 mg BID ANGELA Administration Fluticasone Propionate 1 spray 03/18/25 22:39 Fluticasone Propionate 0.05% Na Spr 16 Gm Btl (*Bkc) NASAL DAILY PRN Congestion Gabapentin 300 mg 03/20/25 14:00 03/23/25 05:27 Gabapentin 300 Mg Capsule PO 300 mg Q8HR ANGELA Administration Hyoscyamine 0.0625 mg 03/19/25 13:48 03/20/25 09:56 Hyoscyamine Sulfate 0.0625 Mg Tablet PO 0.0625 mg Q4H PRN Administration Bladder Spasm Levothyroxine Sodium 200 mcg 03/19/25 06:30 03/23/25 05:30 Levothyroxine Sodium 100 Mcg Tablet PO 200 mcg DAILY@0630 ANGELA Administration Metolazone 5 mg 03/21/25 09:00 03/23/25 09:39 Metolazone 5 Mg Tablet PO 5 mg QAM ANGELA Administration Metoprolol Tartrate 50 mg 03/19/25 09:00 03/23/25 09:34 Metoprolol Tartrate 50 Mg Tab PO 50 mg Q12HR ANGELA Administration Midodrine 5 mg 03/20/25 13:00 03/23/25 09:35 Midodrine Hcl 2.5 Mg Tablet PO 5 mg TID ANGELA Administration Multi-Ingred Cream/Lotion/Oil/Oint 1 applic 03/19/25 09:00 03/23/25 09:40 Eucerin Cream 120 Gm Jar TOPICAL 1 applic DAILY ANGELA Administration Oxybutynin Chloride 5 mg 03/19/25 12:30 03/22/25 09:10 Oxybutynin Chloride 5 Mg Tablet PO 5 mg TID PRN Administration Bladder Spasm Polyethylene Glycol 17 gm 03/20/25 09:00 03/23/25 09:36 Polyethylene Glycol 3350 17 Gm Powd.Pack PO 17 gm DAILY ANGELA Administration Potassium Chloride 20 meq 03/19/25 08:00 03/23/25 09:34 Potassium Chloride 20 Meq Er Tablet PO 20 meq TIDWM ANGELA Administration Spironolactone 25 mg 03/19/25 09:00 03/23/25 09:34 Spironolactone 25 Mg Tablet PO 25 mg DAILY ANGELA Administration Tamsulosin HCl 0.4 mg 03/19/25 09:00 03/23/25 09:34 Tamsulosin Hcl 0.4 Mg Capsule PO 0.4 mg QAM ANGELA Administration Radiology Results: ITS Impressions Chest X-Ray 03/18/25 13:29 IMPRESSION: 1. No acute cardiopulmonary findings given portable technique. Consider PA and lateral films with deep inspiration. Labs Labs: Laboratory Results - last 24 hr 03/23/25 05:27 WBC 7.2 RBC 3.87 L Hgb 9.6 L Hct 34.1 L MCV 88.1 MCH 24.8 L MCHC 28.2 L RDW 16.4 H Plt Count 254 MPV 9.9 Sodium 129 L Potassium 3.4 Chloride 92 L Carbon Dioxide 35 H Anion Gap 2 L BUN 51 H Creatinine 2.16 H Estim Creat Clear Calc 40 Estimated GFR 30 L Glucose 85 Calcium 8.3 L Phosphorus 4.5 Albumin 2.6 L
--- NOTE | 2025-03-23 11:14 | PM.IMPN2 ---
Assessment and Plan Assessment and Plan (1) Acute on chronic diastolic heart failure: Code(s): I50.33 - Acute on chronic diastolic (congestive) heart failure Status: Acute Assessment and Plan: -echo on 12/17/2024 was read as left ventricular systolic function is normal estimated at 65-70, left ventricular diastolic function is abnormal. -patient 2+ the 3+ pitting edema to left lower extremity. -IV Bumex has been ordered. The patient got a dose of Lasix in the emergency room. Monitor renal function closely. Continue with potassium supplement as well. -continue with Aldactone. -continue with Zaroxolyn -cardiology consulted: Appreciate nephrology input. Midodrine was added to help with BP Decrease Bumex to 1mg IV BID Continue metolazone Continue spironolactone Continue metoprolol with holding parameters (hold for SBP<110mm Hg) Continue empagliflozin Continue Eliquis for anticoagulation for A fib/flutter Check weight, ins and outs, and renal function daily Check and replace electrolytes to keep K>4 and Mg>2 Monitor on telemetry 03/22 - cardiology, DR Kirk was not sure why pt on minoxidil- so i was held- will let cardiology decide if pt needs to be on it or not -i/o reviewed, he is diuresing well. 03/23 - cr/bun 2.16/51 bumex 2gm iv iv push bid, metolazone 5 mg -continue Jardiance 10 mg p.o. daily, spironolactone 25 mg p.o. daily -on azetazolamide 250mg PO daily -require midodrine 5 mg p.o. t.i.d. while being diuresed (2) Cardiac enzymes elevated: Code(s): R74.8 - Abnormal levels of other serum enzymes Status: Acute Assessment and Plan: -cardiology has been consulted. -troponin 0.057, 0.061. Repeat troponin in the a.m.. -the patient is not short of breath or having any chest pain. -this could be related to his CHF and are chronic renal failure. (3) UTI (urinary tract infection): Code(s): N39.0 - Urinary tract infection, site not specified Status: Acute Assessment and Plan: -he was started on Rocephin. -blood and urine cultures are pending -continue IV antibiotics for now - follow culture (4) Atrial fibrillation: Qualifiers: Atrial fibrillation type: longstanding persistent Qualified Code(s): I48.11 - Longstanding persistent atrial fibrillation Code(s): I48.91 - Unspecified atrial fibrillation Status: Chronic Assessment and Plan: -the patient is currently in sinus rhythm. -continue with Eliquis -continue with metoprolol -rate is controlled at this time. - bleeding precautions (5) Venous stasis dermatitis: Code(s): I87.2 - Venous insufficiency (chronic) (peripheral) Status: Acute Assessment and Plan: -continue with lanolin oil patient has a right [id number] amputation that is fairly new from a couple months ago. (6) Peripheral vascular disease: Code(s): I73.9 - Peripheral vascular disease, unspecified Status: Acute Assessment and Plan: -the patient is on apixaban. (7) Dyslipidemia: Code(s): E78.5 - Hyperlipidemia, unspecified Status: Acute Assessment and Plan: -continue with home medications. The patient does not appear to be on any statins for unknown reasons. (8) Hypothyroidism: Qualifiers: Hypothyroidism type: acquired Qualified Code(s): E03.9 - Hypothyroidism, unspecified Code(s): E03.9 - Hypothyroidism, unspecified Status: Chronic Assessment and Plan: -continue with levothyroxine (9) CKD (chronic kidney disease) stage 3, GFR 30-59 ml/min: Qualifiers: Chronic kidney disease stage 3 subtype: stage 3b (GFR 30-44) Qualified Code(s): N18.32 - Chronic kidney disease, stage 3b Code(s): N18.3 - Chronic kidney disease, stage 3 (moderate) Status: Acute Assessment and Plan: -creatinine 2.84 which is slightly above his baseline of 1.9-2.8. His GFR is 22 which is slightly lower than his baseline of 31-34 -monitor BMP daily. -may consider Nephrology consult if labs worsen with diuretics. -nephrology consulted: at this point will give him midodrine to get the blood pressure back up, and continue diuretics. I will increase the metolazone to5mg once a day, change his bumetanide to2mg IV twice a day, and continue the spironolactone and acetazolamide 03/22 continue diuresing monitor daily labs 03/23- continue diuresing, midodrine to help wit BP slowly improving but not at his baseline yet Dr Al is fooliowng (10) Anemia of chronic disease: Code(s): D63.8 - Anemia in other chronic diseases classified elsewhere Status: Acute Assessment and Plan: -the patient is slightly above his baseline. This appears to be stable. Most likely secondary to his chronic renal failure. - monitor (11) AMELIA (obstructive sleep apnea): Code(s): G47.33 - Obstructive sleep apnea (adult) (pediatric) Status: Chronic Assessment and Plan: The patient brought his own CPAP machine, he may continue to use this . (12) Gout: Qualifiers: Gout site: multiple sites Gout etiology: unspecified cause Chronicity: chronic Qualified Code(s): M1A.09X0 - Idiopathic chronic gout, multiple sites, without tophus (tophi) Code(s): M10.9 - Gout, unspecified Status: Acute (13) Rosacea: Code(s): L71.9 - Rosacea, unspecified Status: Acute Plan The patient has chronic hyponatremia. Most likely secondary to his CHF with 3rd spacing. Time Spent With Patient Time with patient: Greater than 35 minutes Subjective Date/time seen: 03/23/25 11:14 Interval history: Pt is seen and examined. Denies any chest discomfort, still sob, cardiology nd nephrology following. Has shortness of breath with minimal physical activity. While swelling improved, wearing BiPap Review of Systems Constitutional: Constitutional: Reports as per HPI and Reports no additional constitutional complaints Eyes: Eyes: Reports as per HPI and Reports no additional eye complaints ENT: Reports system reviewed and no additional complaints, except as documented and Reports Normal hearing present Cardiovascular: Cardiovascular: Reports no additional cardiovascular complaints Respiratory: Respiratory: Reports as per HPI and Reports no additional respiratory complaints Gastrointestinal: Gastrointestinal: Reports as per HPI and Reports no additional gastrointestinal complaints Musculoskeletal: Musculoskeletal: Reports no additional musculoskeletal complaints Integumentary/Breasts: Skin/Breast: Reports system reviewed and no additional complaints, except as docu Neurologic: Reports system reviewed and no additional complaints, except as documented and Reports Normal hearing present Psychiatric: Psychiatric: Reports no additional psychiatric complaints and Reports as per HPI Hematologic/Lymphatic: Hematologic/Lymphatic: Reports no additional hematologic/lymphatic complaints Allergic/Immunologic: Allergic/Immunologic: Reports no additional allergic/immunologic complaints Exam Const: General: cooperative, comfortable, no acute distress, well developed, awake, Physically active, average body habitus and well nourished Nutritional Appearance: average body habitus and well nourished Orientation/consciousness: oriented to person, oriented to place, oriented to time and patient oriented x3 Limitations: no limitations HENMT: Head: normal to inspection, No palpable skull fracture present, normocephalic, atraumatic and abrasion Ears: hearing grossly normal bilaterally Eyes: General: appearance normal, both eyes and all related structures Alignment and Position: alignment normal Periorbital: periorbital findings normal Eyelids: eyelids normal Neck: Neck: normal visual inspection, full ROM and no lymphadenopathy Chest: Chest palpation & inspection: normal inspection of the chest Resp: Effort & Inspection: normal respiratory effort Auscultation: clear to auscultation bilaterally Cardio: Palpation: normal PMI Rate: regular rate Rhythm: regular rhythm Heart sounds: S1 normal heart sound present and S2 normal heart sound present GI: Inspection: normal to inspection Auscultation: normal bowel sounds : General: Yes no CVA tenderness Back/Spine/Pelvis: Back: no CVA tenderness Cervical Spine: cervical ROM normal Skin: General skin exam: normal color Lesions: no lesions Rashes: no rashes Trauma: no lacerations or abrasions Wounds: no wounds Hair: normal Nails: normal Neuro: General: oriented to person, oriented to place, oriented to time and patient oriented x3 Cranial nerves: Yes Normal hearing present Cognition (Neuro): normal cognition Speech: normal speech Extrem: General: normal to inspection and edema Right upper extremity: normal to inspection and shoulder/upper arm Left upper extremity: normal to inspection and shoulder/upper arm Psych: Appearance: grossly normal Mental Status: mental status grossly normal Speech and movement: Normal speech and movement present Affect: normal affect Attitude: cooperative Thought process: Normal thought process present Insight: Good insight present (Psych) Judgement: Good judgement present (Psych) Objective Data Vital Signs Vital Signs: Vital Signs - 24 hr 03/22/25 12:00 03/22/25 14:00 03/22/25 15:00 Temperature 98 F Pulse Rate 66 86 70 Respiratory Rate 16 Blood Pressure 114/48 L Pulse Oximetry 98 Oxygen Delivery Fraction of Inspired Oxygen 03/22/25 20:00 03/22/25 20:21 03/22/25 21:00 Temperature Pulse Rate 72 84 Respiratory Rate 20 Blood Pressure Pulse Oximetry 97 Oxygen Delivery Room Air Room Air Fraction of Inspired Oxygen 21 03/22/25 21:37 03/22/25 23:30 03/23/25 01:11 Temperature 97.2 F L Pulse Rate 70 65 Respiratory Rate 18 Blood Pressure 129/59 L Pulse Oximetry 69 L 96 Oxygen Delivery Autopap Autopap Fraction of Inspired Oxygen 03/23/25 03:04 03/23/25 03:45 03/23/25 09:34 Temperature Pulse Rate 68 Respiratory Rate Blood Pressure Pulse Oximetry Oxygen Delivery Autopap Autopap Fraction of Inspired Oxygen Intake/Output Intake/Output: Intake & Output 03/20/25 03/21/25 03/22/25 03/23/25 23:59 23:59 23:59 23:59 Intake Total 1260 1390 1730 790 Output Total 4800 2850 4300 2350 [facility] [place] [phone] Meds/Results Medications: Active Medications Generic Name Dose Route Start Last Admin Trade Name Freq PRN Reason Stop Dose Admin Acetaminophen 500 mg 03/18/25 22:39 03/23/25 09:35 Acetaminophen 500 Mg Tablet PO 500 mg Q6H PRN Administration fever or pain Acetazolamide 250 mg 03/19/25 08:00 03/23/25 09:35 Acetazolamide Tab 250 Mg Tablet PO 250 mg DAILY@0800 ANGELA Administration Allopurinol 100 mg 03/19/25 08:00 03/23/25 09:34 Allopurinol 100 Mg Tablet PO 100 mg DAILY@0800 ANGELA Administration Apixaban 5 mg 03/18/25 22:45 03/23/25 09:35 Apixaban 5 Mg Tablet PO 5 mg Q12HR ANGELA Administration Bumetanide 2 mg 03/20/25 10:55 03/23/25 09:35 Bumetanide Inj 1 Mg/4 Ml Vial IV PUSH 2 mg BID ANGELA Administration Calcitriol 0.25 mcg 03/19/25 09:00 03/22/25 09:10 Calcitriol 0.25 Mcg Capsule PO 0.25 mcg MoWeFr ANGELA Administration Docusate Sodium 100 mg 03/19/25 09:00 03/23/25 09:34 Docusate Sodium 100 Mg Capsule PO 100 mg Q12HR ANGELA Administration Empagliflozin 10 mg 03/19/25 10:35 03/23/25 09:34 Empagliflozin 10 Mg Tablet PO 10 mg DAILY ANGELA Administration Ergocalciferol 1,250 mcg 03/22/25 09:00 03/22/25 09:05 Ergocalciferol (Vitamin D2) 1,250 Mcg (50,000 Units) Capsule PO 1,250 mcg WEEKLY ANGELA Administration Ergocalciferol 1,250 mcg 03/22/25 09:00 03/22/25 12:54 Ergocalciferol (Vitamin D2) 1,250 Mcg (50,000 Units) Capsule PO 1,250 mcg WEEKLY ANGELA Administration Famotidine 20 mg 03/20/25 21:00 03/23/25 09:34 Famotidine 20 Mg Tablet PO 20 mg Q12HR ANGELA Administration Ferrous Sulfate 325 mg 03/19/25 09:00 03/23/25 09:34 Ferrous Sulfate 325 Mg Tablet PO 325 mg BID ANGELA Administration Fluticasone Propionate 1 spray 03/18/25 22:39 Fluticasone Propionate 0.05% Na Spr 16 Gm Btl (*Bkc) NASAL DAILY PRN Congestion Gabapentin 300 mg 03/20/25 14:00 03/23/25 05:27 Gabapentin 300 Mg Capsule PO 300 mg Q8HR ANGELA Administration Hyoscyamine 0.0625 mg 03/19/25 13:48 03/20/25 09:56 Hyoscyamine Sulfate 0.0625 Mg Tablet PO 0.0625 mg Q4H PRN Administration Bladder Spasm Levothyroxine Sodium 200 mcg 03/19/25 06:30 03/23/25 05:30 Levothyroxine Sodium 100 Mcg Tablet PO 200 mcg DAILY@0630 ANGELA Administration Metolazone 5 mg 03/21/25 09:00 03/23/25 09:39 Metolazone 5 Mg Tablet PO 5 mg QAM ANGELA Administration Metoprolol Tartrate 50 mg 03/19/25 09:00 03/23/25 09:34 Metoprolol Tartrate 50 Mg Tab PO 50 mg Q12HR ANGELA Administration Midodrine 5 mg 03/20/25 13:00 03/23/25 09:35 Midodrine Hcl 2.5 Mg Tablet PO 5 mg TID ANGELA Administration Multi-Ingred Cream/Lotion/Oil/Oint 1 applic 03/19/25 09:00 03/23/25 09:40 Eucerin Cream 120 Gm Jar TOPICAL 1 applic DAILY ANGELA Administration Oxybutynin Chloride 5 mg 03/19/25 12:30 03/22/25 09:10 Oxybutynin Chloride 5 Mg Tablet PO 5 mg TID PRN Administration Bladder Spasm Polyethylene Glycol 17 gm 03/20/25 09:00 03/23/25 09:36 Polyethylene Glycol 3350 17 Gm Powd.Pack PO 17 gm DAILY ANGELA Administration Potassium Chloride 20 meq 03/19/25 08:00 03/23/25 09:34 Potassium Chloride 20 Meq Er Tablet PO 20 meq TIDWM ANGELA Administration Spironolactone 25 mg 03/19/25 09:00 03/23/25 09:34 Spironolactone 25 Mg Tablet PO 25 mg DAILY ANGELA Administration Tamsulosin HCl 0.4 mg 03/19/25 09:00 03/23/25 09:34 Tamsulosin Hcl 0.4 Mg Capsule PO 0.4 mg QAM ANGELA Administration Radiology Results: ITS Impressions Chest X-Ray 03/18/25 13:29 IMPRESSION: 1. No acute cardiopulmonary findings given portable technique. Consider PA and lateral films with deep inspiration. Labs Labs: Laboratory Results - last 24 hr 03/23/25 05:27 WBC 7.2 RBC 3.87 L Hgb 9.6 L Hct 34.1 L MCV 88.1 MCH 24.8 L MCHC 28.2 L RDW 16.4 H Plt Count 254 MPV 9.9 Sodium 129 L Potassium 3.4 Chloride 92 L Carbon Dioxide 35 H Anion Gap 2 L BUN 51 H Creatinine 2.16 H Estim Creat Clear Calc 40 Estimated GFR 30 L Glucose 85 Calcium 8.3 L Phosphorus 4.5 Albumin 2.6 L Quality VTE Prophylaxis VTE prophylaxis: pharmacologic ordered
[2025-03-24 05:29] VITALS: BP 105/58; PULSE 66; RESP 16; TEMP 36.6; O2SAT 99
[2025-03-24] MEDS: LEVOTHYROXINE SODIUM 100 MCG TABLET 200 MCG PO (05:59)
[2025-03-24] MEDS: GABAPENTIN 300 MG CAPSULE PO ×3 (05:59→21:24)
[2025-03-24 06:03] LABS: Hematocrit 33.8 % (42.0-52.0); Hemoglobin 9.6 g/dL (14.0-18.0); Immature Granulocyte Percent A 1.0 % (0-0.5); Lymphocytes Absolute Auto 0.69 K/mm3 (0.9-3.2); Mean Corpuscular HGB Conc 28.4 g/dl (32-36); Mean Corpuscular Hemoglobin 25.1 pg (26-34); Mean Corpuscular Volume 88.3 fl (80-100); Nucleated Red Blood Cells Absolute Auto 0.000 K/mm3 (0.0-0.012); Nucleated Red Blood Cells Perc 0.0 % (0.0-0.2); Platelet Count Result 265 k/mm3 (150-375); Red Blood Count 3.83 M/mm3 (4.6-6.20); White Blood Count 6.8 K/mm3 (4.5-10.0)
[2025-03-24 06:25] LABS: Albumin Level 2.7 g/dL (3.5-5.1); Anion Gap 3 mmol/L (4-12); Blood Urea Nitrogen 48 mg/dL (9-20); Calcium 8.6 mg/dL (8.4-10.2); Carbon Dioxide 35 mmol/L (22-30); Chloride 92 mmol/L (98-107); Estimated CRCL calculation 39 ml/min; Estimated Glomerular Filt Rate 29; Glucose 84 mg/dL (65-110); Potassium 3.5 mmol/L (3.4-5.0); Sodium 130 mmol/L (137-145)
[2025-03-24 06:49] LABS: Anisocytosis 1+; Hypochromasia 1+; Ovalocytes Occasional
[2025-03-24 06:50] LABS: Schistocytes None Seen
--- NOTE | 2025-03-24 08:52 | PCNWS ---
Weekly nutritional screen. Patient is tolerating current heart healthy diet with adequate intake 75-100% all meals. No weight loss reported. No nutritional recommendations at this time.
[2025-03-24] MEDS: DOCUSATE SODIUM 100 MG CAPSULE PO ×2 (09:19→21:23)
[2025-03-24] MEDS: BUMETANIDE INJ 1 MG/4 ML VIAL 2 MG IV PUSH ×2 (09:19→17:00)
[2025-03-24] MEDS: APIXABAN 5 MG TABLET PO ×2 (09:19→21:23)
[2025-03-24] MEDS: acetaZOLAMIDE TAB 250 MG TABLET PO (09:19)
[2025-03-24] MEDS: POTASSIUM CHLORIDE 20 MEQ ER TABLET PO ×3 (09:20→16:59)
[2025-03-24] MEDS: SPIRONOLACTONE 25 MG TABLET PO (09:20)
[2025-03-24] MEDS: EMPAGLIFLOZIN 10 MG TABLET PO (09:20)
[2025-03-24] MEDS: MIDODRINE HCL 2.5 MG TABLET 5 MG PO ×2 (09:20→12:54)
[2025-03-24] MEDS: TAMSULOSIN HCL 0.4 MG CAPSULE PO (09:20)
[2025-03-24] MEDS: FERROUS SULFATE 325 MG TABLET PO ×2 (09:20→16:59)
[2025-03-24] MEDS: FAMOTIDINE 20 MG TABLET PO ×2 (09:20→21:23)
[2025-03-24] MEDS: ACETAMINOPHEN 500 MG TABLET PO ×2 (09:23→21:23)
[2025-03-24 09:27] VITALS: PULSE 66
[2025-03-24] MEDS: METOPROLOL TARTRATE 50 MG TAB PO ×2 (09:27→21:24)
[2025-03-24] MEDS: EUCERIN CREAM 120 GM JAR 1 APPLIC TOPICAL (11:44)
--- NOTE | 2025-03-24 11:44 | P.PNCA_ITS ---
Progress Note: A&P Assessment and Plan (1) Acute on chronic diastolic heart failure: Code(s): I50.33 - Acute on chronic diastolic (congestive) heart failure Status: Acute (2) Atrial fibrillation: Qualifiers: Atrial fibrillation type: longstanding persistent Qualified Code(s): I48.11 - Longstanding persistent atrial fibrillation Code(s): I48.91 - Unspecified atrial fibrillation Status: Chronic Plan 75-year-old man with chronic diastolic heart failure, chronic right ventricular heart failure, paroxysmal atrial fibrillation, chronic kidney disease stage IIIA, peripheral vascular disease status post right BKA, hypertension, h yperlipidemia, AMEILA on CPAP, and morbid obesity presents with shortness of breath and anasarca Acute on chronic diastolic heart failure -continue Bumex 2mg IV push b.i.d. and metolazone 5 mg p.o. daily-good UO continues -continue Jardiance 10 mg p.o. daily, spironolactone 25 mg p.o. daily -on azetazolamide 250mg PO daily -require midodrine 5 mg p.o. t.i.d. while being diuresed Acute on chronic right ventricular heart failure -significantly volume overloaded with pitting edema up to his abdomen and involving his scrotum -continue diuresis possible transition to PO in the next 1-2 days as edema is improving Paroxysmal atrial fibrillation -controlled on Lopressor 50 mg p.o. b.i.d. -continue Eliquis 5 mg p.o. b.i.d. Continue IV diuresis today renal function remains stable possible PO in the next 1-2 day Subjective Date/time seen: 03/24/25 11:44 Interval history: 03/24/25-Patient is sitting up in bed. He states edema feels improved. No c/o any chest pain or shortness of breath. Review of Systems Review of Systems: All systems reviewed & are unremarkable except as noted in HPI and below Exam Const: General: comfortable and no acute distress Neck: Neck: supple Resp: Effort & Inspection: normal respiratory effort Auscultation: diminished lung sounds (in bases ) Cardio: Rate: regular rate Rhythm: regular rhythm Heart sounds: no gallops, no murmurs and no rubs Extrem: General: edema Objective Data Vital Signs Vital Signs: Vital Signs - 24 hr 03/23/25 14:35 03/23/25 19:59 03/23/25 21:58 Temperature 36.6 C 36.1 C L Pulse Rate 59 L 60 68 Respiratory Rate 17 18 Blood Pressure 118/52 L 121/62 Pulse Oximetry 99 98 Oxygen Delivery Oxygen Flow Rate 03/23/25 21:59 03/23/25 23:55 03/24/25 02:31 Temperature Pulse Rate Respiratory Rate Blood Pressure Pulse Oximetry 98 Oxygen Delivery CPAP Autopap Autopap Oxygen Flow Rate 4 03/24/25 05:29 03/24/25 08:00 03/24/25 09:27 Temperature 36.6 C Pulse Rate 66 66 Respiratory Rate 16 Blood Pressure 105/58 L Pulse Oximetry 99 Oxygen Delivery Room Air Oxygen Flow Rate Intake/Output Intake/Output: Intake & Output 03/21/25 03/22/25 03/23/25 03/24/25 23:59 23:59 23:59 23:59 Intake Total 1390 1730 1866 240 Output Total 2850 4300 7371 1125 [facility] [phone] Meds/Results Medications: Active Medications Generic Name Dose Route Start Last Admin Trade Name Freq PRN Reason Stop Dose Admin Acetaminophen 500 mg 03/18/25 22:39 03/24/25 09:23 Acetaminophen 500 Mg Tablet PO 500 mg Q6H PRN Administration fever or pain Acetazolamide 250 mg 03/19/25 08:00 03/24/25 09:19 Acetazolamide Tab 250 Mg Tablet PO 250 mg DAILY@0800 ANGELA Administration Allopurinol 100 mg 03/19/25 08:00 03/24/25 09:19 Allopurinol 100 Mg Tablet PO 100 mg DAILY@0800 ANGELA Administration Apixaban 5 mg 03/18/25 22:45 03/24/25 09:19 Apixaban 5 Mg Tablet PO 5 mg Q12HR ANGELA Administration Bumetanide 2 mg 03/20/25 10:55 03/24/25 09:19 Bumetanide Inj 1 Mg/4 Ml Vial IV PUSH 2 mg BID ANGELA Administration Calcitriol 0.25 mcg 03/19/25 09:00 03/24/25 09:31 Calcitriol 0.25 Mcg Capsule PO 0.25 mcg MoWeFr [facility] Administration Docusate Sodium 100 mg 03/19/25 09:00 03/24/25 09:19 Docusate Sodium 100 Mg Capsule PO 100 mg Q12HR ANGELA Administration Empagliflozin 10 mg 03/19/25 10:35 03/24/25 09:20 Empagliflozin 10 Mg Tablet PO 10 mg DAILY ANGELA Administration Ergocalciferol 1,250 mcg 03/22/25 09:00 03/22/25 09:05 Ergocalciferol (Vitamin D2) 1,250 Mcg (50,000 Units) Capsule PO 1,250 mcg WEEKLY ANGELA Administration Ergocalciferol 1,250 mcg 03/22/25 09:00 03/22/25 12:54 Ergocalciferol (Vitamin D2) 1,250 Mcg (50,000 Units) Capsule PO 1,250 mcg WEEKLY ANGELA Administration Famotidine 20 mg 03/20/25 21:00 03/24/25 09:20 Famotidine 20 Mg Tablet PO 20 mg Q12HR ANGELA Administration Ferrous Sulfate 325 mg 03/19/25 09:00 03/24/25 09:20 Ferrous Sulfate 325 Mg Tablet PO 325 mg BID ANGELA Administration Fluticasone Propionate 1 spray 03/18/25 22:39 Fluticasone Propionate 0.05% Na Spr 16 Gm Btl (*Bkc) NASAL DAILY PRN Congestion Gabapentin 300 mg 03/20/25 14:00 03/24/25 05:59 Gabapentin 300 Mg Capsule PO 300 mg Q8HR ANGELA Administration Hyoscyamine 0.0625 mg 03/19/25 13:48 03/20/25 09:56 Hyoscyamine Sulfate 0.0625 Mg Tablet PO 0.0625 mg Q4H PRN Administration Bladder Spasm Levothyroxine Sodium 200 mcg 03/19/25 06:30 03/24/25 05:59 Levothyroxine Sodium 100 Mcg Tablet PO 200 mcg DAILY@0630 ANGELA Administration Metolazone 5 mg 03/21/25 09:00 03/24/25 09:20 Metolazone 5 Mg Tablet PO 5 mg QAM ANGELA Administration Metoprolol Tartrate 50 mg 03/19/25 09:00 03/24/25 09:27 Metoprolol Tartrate 50 Mg Tab PO 50 mg Q12HR ANGELA Administration Midodrine 5 mg 03/20/25 13:00 03/24/25 09:20 Midodrine Hcl 2.5 Mg Tablet PO 5 mg TID ANGELA Administration Multi-Ingred Cream/Lotion/Oil/Oint 1 applic 12/19/25 09:00 03/23/25 09:40 Eucerin Cream 120 Gm Jar TOPICAL 1 applic DAILY ANGELA Administration Oxybutynin Chloride 5 mg 03/19/25 12:30 03/22/25 09:10 Oxybutynin Chloride 5 Mg Tablet PO 5 mg TID PRN Administration Bladder Spasm Polyethylene Glycol 17 gm 03/20/25 09:00 03/24/25 09:20 Polyethylene Glycol 3350 17 Gm Powd.Pack PO 17 gm DAILY ANGELA Administration Potassium Chloride 20 meq 03/19/25 08:00 03/24/25 09:20 Potassium Chloride 20 Meq Er Tablet PO 20 meq TIDWM ANGELA Administration Spironolactone 25 mg 03/19/25 09:00 03/24/25 09:20 Spironolactone 25 Mg Tablet PO 25 mg DAILY ANGELA Administration Tamsulosin HCl 0.4 mg 03/19/25 09:00 03/24/25 09:20 Tamsulosin Hcl 0.4 Mg Capsule PO 0.4 mg QAM ANGELA Administration Radiology Results: ITS Impressions Chest X-Ray 03/18/25 13:29 IMPRESSION: 1. No acute cardiopulmonary findings given portable technique. Consider PA and lateral films with deep inspiration. Labs Labs: Laboratory Results - last 24 hr 03/24/25 05:26 WBC 6.8 RBC 3.83 L Hgb 9.6 L Hct 33.8 L MCV 88.3 MCH 25.1 L MCHC 28.4 L RDW 16.6 H Plt Count 265 MPV 9.7 Immature Gran % (Auto) 1.0 H Neut % (Auto) 69.3 Lymph % (Auto) 10.1 L [place] % (Auto) 11.6 H Eos % (Auto) 7.0 H Baso % (Auto) 1.0 Lymph # (Auto) 0.69 L [place] # (Auto) 0.8 H Eos # (Auto) 0.5 H Baso # (Auto) 0.1 Abs Immat Gran (auto) 0.07 H Absolute Neuts (auto) 4.7 Absolute Nucleated RBC 0.000 Band Neutrophils % Not Reportable Nucleated RBC % 0.0 Platelet Estimate Adequate Hypochromasia 1+ Anisocytosis 1+ Ovalocytes Occasional Schistocytes None seen Sodium 130 L Potassium 3.5 Chloride 92 L Carbon Dioxide 35 H Anion Gap 3 L BUN 48 H Creatinine 2.21 H Estim Creat Clear Calc 39 Estimated GFR 29 L Glucose 84 Calcium 8.6 Phosphorus 4.7 H Albumin 2.7 L
--- NOTE | 2025-03-24 13:09 | PM.IMPN2 ---
Assessment and Plan Assessment and Plan (1) Acute on chronic diastolic heart failure: Code(s): I50.33 - Acute on chronic diastolic (congestive) heart failure Status: Acute Assessment and Plan: -echo on 12/17/2024 was read as left ventricular systolic function is normal estimated at 65-70, left ventricular diastolic function is abnormal. -patient 2+ the 3+ pitting edema to left lower extremity. -IV Bumex has been ordered. The patient got a dose of Lasix in the emergency room. Monitor renal function closely. Continue with potassium supplement as well. -continue with Aldactone. -continue with Zaroxolyn -cardiology consulted: Appreciate nephrology input. Midodrine was added to help with BP Decrease Bumex to 1mg IV BID Continue metolazone Continue spironolactone Continue metoprolol with holding parameters (hold for SBP<110mm Hg) Continue empagliflozin Continue Eliquis for anticoagulation for A fib/flutter Check weight, ins and outs, and renal function daily Check and replace electrolytes to keep K>4 and Mg>2 Monitor on telemetry 03/22 - cardiology, DR Kirk was not sure why pt on minoxidil- so i was held- will let cardiology decide if pt needs to be on it or not -i/o reviewed, he is diuresing well. 03/23 - cr/bun 2. bumex 2gm iv iv push bid, metolazone 5 mg -continue Jardiance 10 mg p.o. daily, spironolactone 25 mg p.o. daily -on azetazolamide 250mg PO daily -require midodrine 5 mg p.o. t.i.d. while being diuresed 03/24 Getting slightly better today. Continue diuresis. (2) Cardiac enzymes elevated: Code(s): R74.8 - Abnormal levels of other serum enzymes Status: Acute Assessment and Plan: -cardiology has been consulted. -troponin 0.057, 0.061. Repeat troponin in the a.m.. -the patient is not short of breath or having any chest pain. -this could be related to his CHF and are chronic renal failure. (3) UTI (urinary tract infection): Code(s): N39.0 - Urinary tract infection, site not specified Status: Acute Assessment and Plan: -he was started on Rocephin. -blood and urine cultures are pending follow culture (4) Atrial fibrillation: Qualifiers: Atrial fibrillation type: longstanding persistent Qualified Code(s): I48.11 - Longstanding persistent atrial fibrillation Code(s): I48.91 - Unspecified atrial fibrillation Status: Chronic Assessment and Plan: -the patient is currently in sinus rhythm. -continue with Eliquis -continue with metoprolol -rate is controlled at this time. - bleeding precautions (5) Venous stasis dermatitis: Code(s): I87.2 - Venous insufficiency (chronic) (peripheral) Status: Acute Assessment and Plan: -continue with lanolin oil patient has a right [id number] amputation that is fairly new from a couple months ago. (6) Peripheral vascular disease: Code(s): I73.9 - Peripheral vascular disease, unspecified Status: Acute Assessment and Plan: -the patient is on apixaban. (7) Dyslipidemia: Code(s): E78.5 - Hyperlipidemia, unspecified Status: Acute Assessment and Plan: -continue with home medications. The patient does not appear to be on any statins for unknown reasons. (8) Hypothyroidism: Qualifiers: Hypothyroidism type: acquired Qualified Code(s): E03.9 - Hypothyroidism, unspecified Code(s): E03.9 - Hypothyroidism, unspecified Status: Chronic Assessment and Plan: -continue with levothyroxine (9) CKD (chronic kidney disease) stage 3, GFR 30-59 ml/min: Qualifiers: Chronic kidney disease stage 3 subtype: stage 3b (GFR 30-44) Qualified Code(s): N18.32 - Chronic kidney disease, stage 3b Code(s): N18.3 - Chronic kidney disease, stage 3 (moderate) Status: Acute Assessment and Plan: -creatinine 2.84 which is slightly above his baseline of 1.9-2.8. His GFR is 22 which is slightly lower than his baseline of 31-34 -monitor BMP daily. -may consider Nephrology consult if labs worsen with diuretics. -nephrology consulted: at this point will give him midodrine to get the blood pressure back up, and continue diuretics. I will increase the metolazone to5mg once a day, change his bumetanide to2mg IV twice a day, and continue the spironolactone and acetazolamide 03/22 continue diuresing monitor daily labs 03/23- continue diuresing, midodrine to help wit BP slowly improving but not at his baseline yet Dr Al is fooliowng (10) Anemia of chronic disease: Code(s): D63.8 - Anemia in other chronic diseases classified elsewhere Status: Acute Assessment and Plan: -the patient is slightly above his baseline. This appears to be stable. Most likely secondary to his chronic renal failure. - monitor (11) AMELIA (obstructive sleep apnea): Code(s): G47.33 - Obstructive sleep apnea (adult) (pediatric) Status: Chronic Assessment and Plan: The patient brought his own CPAP machine, he may continue to use this . (12) Gout: Qualifiers: Gout site: multiple sites Gout etiology: unspecified cause Chronicity: chronic Qualified Code(s): M1A.09X0 - Idiopathic chronic gout, multiple sites, without tophus (tophi) Code(s): M10.9 - Gout, unspecified Status: Acute Assessment and Plan: Stable on current meds (13) Rosacea: Code(s): L71.9 - Rosacea, unspecified Status: Acute Assessment and Plan: Stable on current meds Plan The patient has chronic hyponatremia. Most likely secondary to his CHF with 3rd spacing. Subjective Date/time seen: 03/24/25 13:09 Interval history: Patient was seen during the morning rounds today. Patient is feeling slightly better. Shortness of breath or chest pain. No Abdominal pain, nausea, vomiting. Review of Systems Constitutional: Constitutional: Reports as per HPI and Reports no additional constitutional complaints Eyes: Eyes: Reports as per HPI and Reports no additional eye complaints ENT: Reports system reviewed and no additional complaints, except as documented and Reports Normal hearing present Cardiovascular: Cardiovascular: Reports no additional cardiovascular complaints Respiratory: Respiratory: Reports as per HPI and Reports no additional respiratory complaints Gastrointestinal: Gastrointestinal: Reports as per HPI and Reports no additional gastrointestinal complaints Musculoskeletal: Musculoskeletal: Reports no additional musculoskeletal complaints Integumentary/Breasts: Skin/Breast: Reports system reviewed and no additional complaints, except as docu Neurologic: Reports system reviewed and no additional complaints, except as documented and Reports Normal hearing present Psychiatric: Psychiatric: Reports no additional psychiatric complaints and Reports as per HPI Hematologic/Lymphatic: Hematologic/Lymphatic: Reports no additional hematologic/lymphatic complaints Allergic/Immunologic: Allergic/Immunologic: Reports no additional allergic/immunologic complaints Exam Const: General: cooperative, comfortable, no acute distress, well developed, awake, Physically active, average body habitus and well nourished Nutritional Appearance: average body habitus and well nourished Orientation/consciousness: oriented to person, oriented to place, oriented to time and patient oriented x3 Limitations: no limitations HENMT: Head: normal to inspection, No palpable skull fracture present, normocephalic, atraumatic and abrasion Ears: hearing grossly normal bilaterally Eyes: General: appearance normal, both eyes and all related structures Alignment and Position: alignment normal Periorbital: periorbital findings normal Eyelids: eyelids normal Neck: Neck: normal visual inspection, full ROM and no lymphadenopathy Chest: Chest palpation & inspection: normal inspection of the chest Resp: Effort & Inspection: normal respiratory effort Auscultation: clear to auscultation bilaterally Cardio: Palpation: normal PMI Rate: regular rate Rhythm: regular rhythm Heart sounds: S1 normal heart sound present and S2 normal heart sound present GI: Inspection: normal to inspection Auscultation: normal bowel sounds : General: Yes no CVA tenderness Back/Spine/Pelvis: Back: no CVA tenderness Cervical Spine: cervical ROM normal Skin: General skin exam: normal color Lesions: no lesions Rashes: no rashes Trauma: no lacerations or abrasions Wounds: no wounds Hair: normal Nails: normal Neuro: General: oriented to person, oriented to place, oriented to time and patient oriented x3 Cranial nerves: Yes Normal hearing present Cognition (Neuro): normal cognition Speech: normal speech Extrem: General: normal to inspection and edema Right upper extremity: normal to inspection and shoulder/upper arm Left upper extremity: normal to inspection and shoulder/upper arm Psych: Appearance: grossly normal Mental Status: mental status grossly normal Speech and movement: Normal speech and movement present Affect: normal affect Attitude: cooperative Thought process: Normal thought process present Insight: Good insight present (Psych) Judgement: Good judgement present (Psych) Objective Data Vital Signs Vital Signs: Vital Signs - 24 hr 03/23/25 14:35 03/23/25 19:59 03/23/25 21:58 Temperature 36.6 C 36.1 C L Pulse Rate 59 L 60 68 Respiratory Rate 17 18 Blood Pressure 118/52 L 121/62 Pulse Oximetry 99 98 Oxygen Delivery Oxygen Flow Rate 03/23/25 21:59 03/23/25 23:55 03/24/25 02:31 Temperature Pulse Rate Respiratory Rate Blood Pressure Pulse Oximetry 98 Oxygen Delivery CPAP Autopap Autopap Oxygen Flow Rate 4 03/24/25 05:29 03/24/25 08:00 03/24/25 09:27 Temperature 36.6 C Pulse Rate 66 66 Respiratory Rate 16 Blood Pressure 105/58 L Pulse Oximetry 99 Oxygen Delivery Room Air Oxygen Flow Rate Intake/Output Intake/Output: Intake & Output 03/21/25 03/22/25 03/23/25 03/24/25 23:59 23:59 23:59 23:59 Intake Total 1390 1730 1866 240 Output Total 2854 9073 7383 [address] [facility], [place] [phone] Meds/Results Medications: Active Medications Generic Name Dose Route Start Last Admin Trade Name Freq PRN Reason Stop Dose Admin Acetaminophen 500 mg 03/18/25 22:39 03/24/25 09:23 Acetaminophen 500 Mg Tablet PO 500 mg Q6H PRN Administration fever or pain Acetazolamide 250 mg 03/19/25 08:00 03/24/25 09:19 Acetazolamide Tab 250 Mg Tablet PO 250 mg DAILY@0800 ANGELA Administration Allopurinol 100 mg 03/19/25 08:00 03/24/25 09:19 Allopurinol 100 Mg Tablet PO 100 mg DAILY@0800 ANGELA Administration Apixaban 5 mg 03/18/25 22:45 03/24/25 09:19 Apixaban 5 Mg Tablet PO 5 mg Q12HR ANGELA Administration Bumetanide 2 mg 03/20/25 10:55 03/24/25 09:19 Bumetanide Inj 1 Mg/4 Ml Vial IV PUSH 2 mg BID ANGELA Administration Calcitriol 0.25 mcg 03/19/25 09:00 03/24/25 09:31 Calcitriol 0.25 Mcg Capsule PO 0.25 mcg MoWeFr ANGELA Administration Docusate Sodium 100 mg 03/19/25 09:00 03/24/25 09:19 Docusate Sodium 100 Mg Capsule PO 100 mg Q12HR ANGELA Administration Empagliflozin 10 mg 03/19/25 10:35 03/24/25 09:20 Empagliflozin 10 Mg Tablet PO 10 mg DAILY ANGELA Administration Ergocalciferol 1,250 mcg 03/22/25 09:00 03/22/25 09:05 Ergocalciferol (Vitamin D2) 1,250 Mcg (50,000 Units) Capsule PO 1,250 mcg WEEKLY ANGELA Administration Ergocalciferol 1,250 mcg 03/22/25 09:00 03/22/25 12:54 Ergocalciferol (Vitamin D2) 1,250 Mcg (50,000 Units) Capsule PO 1,250 mcg WEEKLY ANGELA Administration Famotidine 20 mg 03/20/25 21:00 03/24/25 09:20 Famotidine 20 Mg Tablet PO 20 mg Q12HR ANGELA Administration Ferrous Sulfate 325 mg 03/19/25 09:00 03/24/25 09:20 Ferrous Sulfate 325 Mg Tablet PO 325 mg BID ANGELA Administration Fluticasone Propionate 1 spray 03/18/25 22:39 Fluticasone Propionate 0.05% Na Spr 16 Gm Btl (*Bkc) NASAL DAILY PRN Congestion Gabapentin 300 mg 03/20/25 14:00 03/24/25 13:04 Gabapentin 300 Mg Capsule PO 300 mg Q8HR ANGELA Administration Hyoscyamine 0.0625 mg 03/19/25 13:48 03/20/25 09:56 Hyoscyamine Sulfate 0.0625 Mg Tablet PO 0.0625 mg Q4H PRN Administration Bladder Spasm Levothyroxine Sodium 200 mcg 03/19/25 06:30 03/24/25 05:59 Levothyroxine Sodium 100 Mcg Tablet PO 200 mcg DAILY@0630 ANGELA Administration Metolazone 5 mg 03/21/25 09:00 03/24/25 09:20 Metolazone 5 Mg Tablet PO 5 mg QAM ANGELA Administration Metoprolol Tartrate 50 mg 03/19/25 09:00 03/24/25 09:27 Metoprolol Tartrate 50 Mg Tab PO 50 mg Q12HR ANGELA Administration Midodrine 5 mg 03/20/25 13:00 03/24/25 12:54 Midodrine Hcl 2.5 Mg Tablet PO 5 mg TID ANGELA Administration Multi-Ingred Cream/Lotion/Oil/Oint 1 applic 03/19/25 09:00 03/24/25 11:44 Eucerin Cream 120 Gm Jar TOPICAL 1 applic DAILY ANGELA Administration Oxybutynin Chloride 5 mg 03/19/25 12:30 03/22/25 09:10 Oxybutynin Chloride 5 Mg Tablet PO 5 mg TID PRN Administration Bladder Spasm Polyethylene Glycol 17 gm 03/20/25 09:00 03/24/25 09:20 Polyethylene Glycol 3350 17 Gm Powd.Pack PO 17 gm DAILY ANGELA Administration Potassium Chloride 20 meq 03/19/25 08:00 03/24/25 11:43 Potassium Chloride 20 Meq Er Tablet PO 20 meq TIDWM ANGELA Administration Spironolactone 25 mg 03/19/25 09:00 03/24/25 09:20 Spironolactone 25 Mg Tablet PO 25 mg DAILY ANGELA Administration Tamsulosin HCl 0.4 mg 03/19/25 09:00 03/24/25 09:20 Tamsulosin Hcl 0.4 Mg Capsule PO 0.4 mg QAM ANGELA Administration Radiology Results: ITS Impressions Chest X-Ray 03/18/25 13:29 IMPRESSION: 1. No acute cardiopulmonary findings given portable technique. Consider PA and lateral films with deep inspiration. Labs Labs: Laboratory Results - last 24 hr 03/24/25 05:26 WBC 6.8 RBC 3.83 L Hgb 9.6 L Hct 33.8 L MCV 88.3 MCH 25.1 L MCHC 28.4 L RDW 16.6 H Plt Count 265 MPV 9.7 Immature Gran % (Auto) 1.0 H Neut % (Auto) 69.3 Lymph % (Auto) 10.1 L [place] % (Auto) 11.6 H Eos % (Auto) 7.0 H Baso % (Auto) 1.0 Lymph # (Auto) 0.69 L [place] # (Auto) 0.8 H Eos # (Auto) 0.5 H Baso # (Auto) 0.1 Abs Immat Gran (auto) 0.07 H Absolute Neuts (auto) 4.7 Absolute Nucleated RBC 0.000 Band Neutrophils % Not Reportable Nucleated RBC % 0.0 Platelet Estimate Adequate Hypochromasia 1+ Anisocytosis 1+ Ovalocytes Occasional Schistocytes None seen Sodium 130 L Potassium 3.5 Chloride 92 L Carbon Dioxide 35 H Anion Gap 3 L BUN 48 H Creatinine 2.21 H Estim Creat Clear Calc 39 Estimated GFR 29 L Glucose 84 Calcium 8.6 Phosphorus 4.7 H Albumin 2.7 L Quality VTE Prophylaxis VTE prophylaxis: pharmacologic ordered
--- NOTE | 2025-03-24 14:40 | P.PNNP_ITS ---
Progress Note: A&P Assessment and Plan (1) Acute kidney injury: Code(s): N17.9 - Acute kidney failure, unspecified Status: Resolved Assessment and Plan: * slow improvement if not stable * as noted by labs on admission (creatinine of 2.84mg/dl) * evaluation to date noted: * urine electrolytes (FeUrea) are prerenal * mild proteinuria * CPK low * UA suggestive of infection - but urine culture negative * based on evidence to date, likely secondary to significant renal venous hypertension - his improvement in renal function/creatinine with diuresis supports this etiology * along with swelling in his LEs and scrotum, he likely has developed swelling in his kidneys * this is further complicated by soft BPs leading to chronic prerenal azotemia (a variation of cardiorenal syndrome) * on midodrine for BP support with ongoing diuresis * follow trend of repeat labs and UOP (2) Stage 3b chronic kidney disease: Code(s): N18.32 - Chronic kidney disease, stage 3b Status: Chronic Assessment and Plan: * baseline creatinine runs ~ 1.7 - 2.3mg/dl in the last year or so * however, has been as low as 1.6mg/dl and as high as 2.7mg/dl in association with acute hospitalizations * this causes him to fluctuate between CKD stage 3b and stage 4 * secondary to hypertensive nephrosclerosis, vascular disease, as well as the necessity of chronic diuretic therapy to maintain his volume status along age- related change * has required acute [employer]/dialysis x 2 in the past for JENA on CKD in association with volume/fluid overload unresponsive to diuretic therapy (3) Anasarca: Code(s): R60.1 - Generalized edema Status: Acute Assessment and Plan: * chronic issue with recurrent exacerbations as noted by his numerous acute hospitalizations * this is felt to be secondary to his severe right-sided heart failure with some possible contributions from his AMELIA * continue diuresis (IV bumex, metolazone, acetazolamide, and spironolactone) * almost 15L negative since admission * continue current therapy (4) Acute on chronic diastolic heart failure: Code(s): I50.33 - Acute on chronic diastolic (congestive) heart failure Status: Acute Assessment and Plan: * as noted by symptoms of shortness of breath and #3 * recent Echo (03/20) noted: * left ventricular systolic function is normal, estimated at 55 - 60% * left ventricular diastolic function is abnormal * mild tricuspid valve regurgitation * no pulmonary hypertension, estimated pulmonary arterial systolic pressure is 30 mmHg * Cardiology recommendations noted * continue diuresis with IV bumex + metolazone + acetazolamide + spironolactone * on midodrine for BP support with diuresis * continue Jardiance * follow I/Os, daily weights, and respiratory status (5) Anemia: Qualifiers: Anemia type: due to chronic kidney disease Chronic kidney disease stage: stage 3 (moderate) Chronic kidney disease stage 3 subtype: unspecified whether 3a or 3b Qualified Code(s): N18.30 - Chronic kidney disease, stage 3 unspecified; D63.1 - Anemia in chronic kidney disease Code(s): D64.9 - Anemia, unspecified Status: Acute Assessment and Plan: * partly due to CKD * anemia studies with iron deficiency * H/H relatively stable * consider IV venofer while hospitalized (6) Hyponatremia: Code(s): E87.1 - Hypo-osmolality and hyponatremia Status: Chronic Assessment and Plan: * chronic issue at baseline * likely due to chronic CHF and necessity of diuretic therapy * follow trend of sodium (7) Atrial fibrillation: Qualifiers: Atrial fibrillation type: longstanding persistent Qualified Code(s): I 48.11 - Longstanding persistent atrial fibrillation Code(s): I48.91 - Unspecified atrial fibrillation Status: Chronic Assessment and Plan: * rate control strategy * on metoprolol * on eliquis (8) AMELIA (obstructive sleep apnea): Code(s): G47.33 - Obstructive sleep apnea (adult) (pediatric) Status: Chronic Assessment and Plan: * continue CPAP at night and with rest Will continue to follow. L Subjective Date/time seen: 03/24/25 14:40 Interval history: Follow-up for acute kidney injury/acute renal failure on chronic kidney disease. Chart reviewed -- assuming care from Dr. Al; no apparent complaints voiced at the time of my visit; good diuresis noted with current therapy/interventions; no other issues/events overnight or earlier today; feels reasonably well. Exam 2 Narrative: General: large but WD/WN male in NAD Heart: normal S1 and S2; no rub Lungs: clear but decreased at bases Abdomen: obese but soft, nontender, nondistended, positive bowel sounds Extremities: no cyanosis or clubbing; 2+ edema; s/p right BKA Skin: chronic changes noted in LLE apparent Objective Data Vital Signs Vital Signs: Vital Signs Temp Pulse Resp BP Pulse Ox O2 Del Method O2 Flow Rate 03/24/25 14:00 98.0 F 52 L 14 115/56 L 94 03/24/25 09:27 66 03/24/25 08:00 Room Air 03/24/25 05:29 97.9 F 66 16 105/58 L 99 03/24/25 02:31 Autopap 03/23/25 23:55 Autopap 03/23/25 21:59 98 CPAP 4 03/23/25 21:58 68 03/23/25 19:59 97.0 F L 60 18 121/62 98 Intake/Output Intake/Output: Intake & Output 03/21/25 03/22/25 03/23/25 03/24/25 23:59 23:59 23:59 23:59 Intake Total 1390 1730 1866 598 Output Total 2850 4300 7381 5075 [facility] [phone] Meds/Results Medications: Active Medications Generic Name Dose Route Start Last Admin Trade Name Freq PRN Reason Stop Dose Admin Acetaminophen 500 mg 03/18/25 22:39 03/24/25 09:23 Acetaminophen 500 Mg Tablet PO 500 mg Q6H PRN Administration fever or pain Acetazolamide 250 mg 03/19/25 08:00 03/24/25 09:19 Acetazolamide Tab 250 Mg Tablet PO 250 mg DAILY@0800 ANGELA Administration Allopurinol 100 mg 03/19/25 08:00 03/24/25 09:19 Allopurinol 100 Mg Tablet PO 100 mg DAILY@0800 ANGELA Administration Apixaban 5 mg 03/18/25 22:45 03/24/25 09:19 Apixaban 5 Mg Tablet PO 5 mg Q12HR ANGELA Administration Bumetanide 2 mg 03/20/25 10:55 03/24/25 17:00 Bumetanide Inj 1 Mg/4 Ml Vial IV PUSH 2 mg BID ANGELA Administration Calcitriol 0.25 mcg 03/19/25 09:00 03/24/25 09:31 Calcitriol 0.25 Mcg Capsule PO 0.25 mcg MoWeFr ANGELA Administration Docusate Sodium 100 mg 03/19/25 09:00 03/24/25 09:19 Docusate Sodium 100 Mg Capsule PO 100 mg Q12HR ANGELA Administration Empagliflozin 10 mg 03/19/25 10:35 03/24/25 09:20 Empagliflozin 10 Mg Tablet PO 10 mg DAILY ANGELA Administration Ergocalciferol 1,250 mcg 03/22/25 09:00 03/22/25 09:05 Ergocalciferol (Vitamin D2) 1,250 Mcg (50,000 Units) Capsule PO 1,250 mcg WEEKLY ANGELA Administration Ergocalciferol 1,250 mcg 03/22/25 09:00 03/22/25 12:54 Ergocalciferol (Vitamin D2) 1,250 Mcg (50,000 Units) Capsule PO 1,250 mcg WEEKLY ANGELA Administration Famotidine 20 mg 03/20/25 21:00 03/24/25 09:20 Famotidine 20 Mg Tablet PO 20 mg Q12HR ANGELA Administration Ferrous Sulfate 325 mg 03/19/25 09:00 03/24/25 16:59 Ferrous Sulfate 325 Mg Tablet PO 325 mg BID ANGELA Administration Fluticasone Propionate 1 spray 03/18/25 22:39 Fluticasone Propionate 0.05% Na Spr 16 Gm Btl (*Bkc) NASAL DAILY PRN Congestion Gabapentin 300 mg 03/20/25 14:00 03/24/25 13:04 Gabapentin 300 Mg Capsule PO 300 mg Q8HR ANGELA Administration Hyoscyamine 0.0625 mg 03/19/25 13:48 03/20/25 09:56 Hyoscyamine Sulfate 0.0625 Mg Tablet PO 0.0625 mg Q4H PRN Administration Bladder Spasm Levothyroxine Sodium 200 mcg 03/19/25 06:30 03/24/25 05:59 Levothyroxine Sodium 100 Mcg Tablet PO 200 mcg DAILY@0630 ANGELA Administration Metolazone 5 mg 03/21/25 09:00 03/24/25 09:20 Metolazone 5 Mg Tablet PO 5 mg QAM ANGELA Administration Metoprolol Tartrate 50 mg 03/19/25 09:00 03/24/25 09:27 Metoprolol Tartrate 50 Mg Tab PO 50 mg Q12HR ANGELA Administration Midodrine 5 mg 03/20/25 13:00 03/24/25 17:00 Midodrine Hcl 2.5 Mg Tablet PO Not Given TID ANGELA Multi-Ingred Cream/Lotion/Oil/Oint 1 applic 03/19/25 09:00 03/24/25 11:44 Eucerin Cream 120 Gm Jar TOPICAL 1 applic DAILY ANGELA Administration Oxybutynin Chloride 5 mg 03/19/25 12:30 03/22/25 09:10 Oxybutynin Chloride 5 Mg Tablet PO 5 mg TID PRN Administration Bladder Spasm Polyethylene Glycol 17 gm 03/20/25 09:00 03/24/25 09:20 Polyethylene Glycol 3350 17 Gm Powd.Pack PO 17 gm DAILY ANGELA Administration Potassium Chloride 20 meq 03/19/25 08:00 03/24/25 16:59 Potassium Chloride 20 Meq Er Tablet PO 20 meq TIDWM ANGELA Administration Spironolactone 25 mg 03/19/25 09:00 03/24/25 09:20 Spironolactone 25 Mg Tablet PO 25 mg DAILY ANGELA Administration Tamsulosin HCl 0.4 mg 03/19/25 09:00 03/24/25 09:20 Tamsulosin Hcl 0.4 Mg Capsule PO 0.4 mg QAM ANGELA Administration Radiology Results: ITS Impressions Chest X-Ray 03/18/25 13:29 IMPRESSION: 1. No acute cardiopulmonary findings given portable technique. Consider PA and lateral films with deep inspiration. Labs Labs: Laboratory Tests 03/24/25 05:26 03/24/25 05:26 Calcium 8.6 Phosphorus 4.7 H Albumin 2.7 L
[2025-03-24 16:00] VITALS: BP 115/56; PULSE 52; RESP 14; TEMP 36.7; O2SAT 94
[2025-03-24] MEDS: WATER FOR IRRIGATION, STERILE 1,000 ML BOTTLE 1000 ML (21:22)
[2025-03-24 21:24] VITALS: PULSE 70
[2025-03-24 21:28] VITALS: O2SAT 94
[2025-03-24 21:31] VITALS: BP 117/63; PULSE 82; RESP 18; TEMP 36.9; O2SAT 99
[2025-03-25] MEDS: LEVOTHYROXINE SODIUM 100 MCG TABLET 200 MCG PO (05:39)
[2025-03-25] MEDS: GABAPENTIN 300 MG CAPSULE PO ×3 (05:39→21:38)
[2025-03-25 06:47] VITALS: BP 111/62; PULSE 102; RESP 16; TEMP 36.2; O2SAT 99
[2025-03-25 07:41] LABS: Alanine Aminotransferase 8 U/L (6-50); Albumin Level 2.9 g/dL (3.5-5.1); Alkaline Phosphatase 52 U/L (38-126); Anion Gap 4 mmol/L (4-12); Aspartate Amino Transferase 23 U/L (17-59); Bilirubin,Total 0.4 mg/dL (0.2-1.3); Blood Urea Nitrogen 45 mg/dL (9-20); Calcium 8.9 mg/dL (8.4-10.2); Carbon Dioxide 37 mmol/L (22-30); Chloride 90 mmol/L (98-107); Estimated CRCL calculation 39 ml/min; Estimated Glomerular Filt Rate 30; Glucose 84 mg/dL (65-110); Potassium 3.4 mmol/L (3.4-5.0); Sodium 131 mmol/L (137-145); Total Protein 5.3 g/dL (6.3-8.2)
[2025-03-25 08:00] VITALS: BP 101/43; PULSE 58; RESP 14; TEMP 36.9; O2SAT 97
[2025-03-25 08:25] VITALS: PULSE 102
[2025-03-25] MEDS: METOPROLOL TARTRATE 50 MG TAB PO ×2 (08:25→21:34)
[2025-03-25] MEDS: FERROUS SULFATE 325 MG TABLET PO ×2 (08:25→16:15)
[2025-03-25] MEDS: BUMETANIDE INJ 1 MG/4 ML VIAL 2 MG IV PUSH ×2 (08:25→16:15)
[2025-03-25] MEDS: FAMOTIDINE 20 MG TABLET PO ×2 (08:25→21:34)
[2025-03-25] MEDS: APIXABAN 5 MG TABLET PO ×2 (08:26→21:34)
[2025-03-25] MEDS: DOCUSATE SODIUM 100 MG CAPSULE PO ×2 (08:26→21:34)
[2025-03-25] MEDS: SPIRONOLACTONE 25 MG TABLET PO (08:26)
[2025-03-25] MEDS: TAMSULOSIN HCL 0.4 MG CAPSULE PO (08:26)
[2025-03-25] MEDS: acetaZOLAMIDE TAB 250 MG TABLET PO (08:26)
[2025-03-25] MEDS: POTASSIUM CHLORIDE 20 MEQ ER TABLET PO ×3 (08:26→16:15)
[2025-03-25] MEDS: EMPAGLIFLOZIN 10 MG TABLET PO (08:26)
[2025-03-25] MEDS: ACETAMINOPHEN 500 MG TABLET PO (08:33)
[2025-03-25] MEDS: MIDODRINE HCL 2.5 MG TABLET 5 MG PO ×3 (08:36→16:20)
[2025-03-25] MEDS: EUCERIN CREAM 120 GM JAR 1 APPLIC TOPICAL (08:38)
--- NOTE | 2025-03-25 09:27 | P.PNIM_ITS ---
Assessment and Plan Assessment and Plan (1) Acute on chronic diastolic heart failure: Code(s): I50.33 - Acute on chronic diastolic (congestive) heart failure Status: Acute Assessment and Plan: -echo on 12/17/2024 was read as left ventricular systolic function is normal estimated at 65-70, left ventricular diastolic function is abnormal. -patient 2+ the 3+ pitting edema to left lower extremity. -IV Bumex has been ordered. The patient got a dose of Lasix in the emergency room. Monitor renal function closely. Continue with potassium supplement as well. -continue with Aldactone. -continue with Zaroxolyn -cardiology consulted: Appreciate nephrology input. Midodrine was added to help with BP Decrease Bumex to 1mg IV BID Continue metolazone Continue spironolactone Continue metoprolol with holding parameters (hold for SBP<110mm Hg) Continue empagliflozin Continue Eliquis for anticoagulation for A fib/flutter Check weight, ins and outs, and renal function daily Check and replace electrolytes to keep K>4 and Mg>2 Monitor on telemetry 03/22 - cardiology, DR Kirk was not sure why pt on minoxidil- so i was held- will let cardiology decide if pt needs to be on it or not -i/o reviewed, he is diuresing well. 03/23 - cr/bun 2. bumex 2gm iv iv push bid, metolazone 5 mg -continue Jardiance 10 mg p.o. daily, spironolactone 25 mg p.o. daily -on azetazolamide 250mg PO daily -require midodrine 5 mg p.o. t.i.d. while being diuresed 03/24 Getting slightly better today. Continue diuresis. 03/25/2025 Gradually improving, will contnue current treatment, nephrology on board. (2) Cardiac enzymes elevated: Code(s): R74.8 - Abnormal levels of other serum enzymes Status: Acute Assessment and Plan: -cardiology has been consulted. -troponin 0.057, 0.061. Repeat troponin in the a.m.. -the patient is not short of breath or having any chest pain. -this could be related to his CHF and are chronic renal failure. (3) UTI (urinary tract infection): Code(s): N39.0 - Urinary tract infection, site not specified Status: Acute Assessment and Plan: -he was started on Rocephin. Swith to Po antibiotics today. (4) Atrial fibrillation: Qualifiers: Atrial fibrillation type: longstanding persistent Qualified Code(s): I48.11 - Longstanding persistent atrial fibrillation Code(s): I48.91 - Unspecified atrial fibrillation Status: Chronic Assessment and Plan: -the patient is currently in sinus rhythm. -continue with Eliquis -continue with metoprolol -rate is controlled at this time. - bleeding precautions (5) Venous stasis dermatitis: Code(s): I87.2 - Venous insufficiency (chronic) (peripheral) Status: Acute Assessment and Plan: -continue with lanolin oil patient has a right [id number] amputation that is fairly new from a couple months ago. (6) Peripheral vascular disease: Code(s): I73.9 - Peripheral vascular disease, unspecified Status: Acute Assessment and Plan: -the patient is on apixaban. (7) Dyslipidemia: Code(s): E78.5 - Hyperlipidemia, unspecified Status: Acute Assessment and Plan: -continue with home medications. The patient does not appear to be on any statins for unknown reasons. (8) Hypothyroidism: Qualifiers: Hypothyroidism type: acquired Qualified Code(s): E03.9 - Hypothyroidism, unspecified Code(s): E03.9 - Hypothyroidism, unspecified Status: Chronic Assessment and Plan: -continue with levothyroxine (9) CKD (chronic kidney disease) stage 3, GFR 30-59 ml/min: Qualifiers: Chronic kidney disease stage 3 subtype: stage 3b (GFR 30-44) Qualified Code(s): N18.32 - Chronic kidney disease, stage 3b Code(s): N18.3 - Chronic kidney disease, stage 3 (moderate) Status: Acute Assessment and Plan: -creatinine 2.84 which is slightly above his baseline of 1.9-2.8. His GFR is 22 which is slightly lower than his baseline of 31-34 -monitor BMP daily. -may consider Nephrology consult if labs worsen with diuretics. -nephrology consulted: at this point will give him midodrine to get the blood pressure back up, and continue diuretics. I will increase the metolazone to5mg once a day, change his bumetanide to2mg IV twice a day, and continue the spironolactone and acetazolamide 03/24 continue diuresing monitor daily labs 03/25- continue diuresing, midodrine to help wit BP slowly improving but not at his baseline yet Dr Al is fooliowng (10) Anemia of chronic disease: Code(s): D63.8 - Anemia in other chronic diseases classified elsewhere Status: Acute Assessment and Plan: -the patient is slightly above his baseline. This appears to be stable. Most likely secondary to his chronic renal failure. - monitor (11) AMELIA (obstructive sleep apnea): Code(s): G47.33 - Obstructive sleep apnea (adult) (pediatric) Status: Chronic Assessment and Plan: The patient brought his own CPAP machine, he may continue to use this . (12) Gout: Qualifiers: Gout site: multiple sites Gout etiology: unspecified cause Chronicity: chronic Qualified Code(s): M1A.09X0 - Idiopathic chronic gout, multiple sites, without tophus (tophi) Code(s): M10.9 - Gout, unspecified Status: Acute Assessment and Plan: Stable on current meds (13) Rosacea: Code(s): L71.9 - Rosacea, unspecified Status: Acute Assessment and Plan: Stable on current meds Plan The patient has chronic hyponatremia. Most likely secondary to his CHF with 3rd spacing. Subjective Date/time seen: 03/25/25 09:27 Interval history: Patient was during the morning rounds today. Patient is feeling much better. No shortness of breath or chest pain. No abdominal pain, no nausea or vomiting. Review of Systems Constitutional: Constitutional: Reports as per HPI and Reports no additional constitutional complaints Eyes: Eyes: Reports as per HPI and Reports no additional eye complaints ENT: Reports system reviewed and no additional complaints, except as documented and Reports Normal hearing present Cardiovascular: Cardiovascular: Reports no additional cardiovascular complaints Respiratory: Respiratory: Reports as per HPI and Reports no additional respiratory complaints Gastrointestinal: Gastrointestinal: Reports as per HPI and Reports no additional gastrointestinal complaints Musculoskeletal: Musculoskeletal: Reports no additional musculoskeletal complaints Integumentary/Breasts: Skin/Breast: Reports system reviewed and no additional complaints, except as docu Neurologic: Reports system reviewed and no additional complaints, except as documented and Reports Normal hearing present Psychiatric: Psychiatric: Reports no additional psychiatric complaints and Reports as per HPI Hematologic/Lymphatic: Hematologic/Lymphatic: Reports no additional hematologic/lymphatic complaints Allergic/Immunologic: Allergic/Immunologic: Reports no additional fernanda rgic/immunologic complaints Exam Const: General: cooperative, comfortable, no acute distress, well developed, awake, Physically active, average body habitus and well nourished Nutritional Appearance: average body habitus and well nourished Orientation/consciousne ss: oriented to person, oriented to place, oriented to time and patient oriented x3 Limitations: no limitations HENMT: Head: normal to inspection, No palpable skull fracture present, normocephalic, atraumatic and abrasion Ears: hearing grossly normal bilaterally Eyes: General: appearance normal, both eyes and all related structures Alignment and Position: alignment normal Periorbital: periorbital findings normal Eyelids: eyelids normal Neck: Neck: normal visual inspection, full ROM and no lymphadenopathy Chest: Chest palpation & inspection: normal inspection of the chest Resp: Effort & Inspection: normal respiratory effort Auscultation: clear to auscultation bilaterally Cardio: Palpation: normal PMI Rate: regular rate Rhythm: regular rhythm Heart sounds: S1 normal heart sound present and S2 normal heart sound present GI: Inspection: normal to inspection Auscultation: normal bowel sounds : General: Yes no CVA tenderness Back/Spine/Pelvis: Back: no CVA tenderness Cervical Spine: cervical ROM normal Skin: General skin exam: normal color Lesions: no lesions Rashes: no rashes Trauma: no lacerations or abrasions Wounds: no wounds Hair: normal Nails: normal Neuro: General: oriented to person, oriented to place, oriented to time and patient oriented x3 Cranial nerves: Yes Normal hearing present Cognition (Neuro): normal cognition Speech: normal speech Extrem: General: normal to inspection and edema Right upper extremity: normal to inspection and shoulder/upper arm Left upper extremity: normal to inspection and shoulder/upper arm Psych: Appearance: grossly normal Mental Status: mental status grossly normal Speech and movement: Normal speech and movement present Affect: normal affect Attitude: cooperative Thought process: Normal thought process present Insight: Good insight present (Psych) Judgement: Good judgement present (Psych) Objective Data Vital Signs Vital Signs: Vital Signs - 24 hr 03/24/25 16:00 03/24/25 21:24 03/24/25 21:28 Temperature 36.7 C Pulse Rate 52 L 70 Respiratory Rate 14 Blood Pressure 115/56 L Pulse Oximetry 94 94 Oxygen Delivery CPAP Oxygen Flow Rate 4 03/24/25 21:31 03/25/25 06:47 03/25/25 08:00 Temperature 36.9 C 36.2 C L 36.9 C Pulse Rate 82 102 H 58 L Respiratory Rate 18 16 14 Blood Pressure 117/63 111/62 101/43 L Pulse Oximetry 99 99 97 Oxygen Delivery Oxygen Flow Rate 03/25/25 08:25 Temperature Pulse Rate 102 H Respiratory Rate Blood Pressure Pulse Oximetry Oxygen Delivery Oxygen Flow Rate Intake/Output Intake/Output: Intake & Output 03/22/25 03/23/25 03/24/25 03/25/25 23:59 23:59 23:59 23:59 Intake Total 1730 1866 598 200 Output Total 1003 7353 [address] [facility] -[phone] Meds/Results Medications: Active Medications Generic Name Dose Route Start Last Admin Trade Name Freq PRN Reason Stop Dose Admin Acetaminophen 500 mg 03/18/25 22:39 03/25/25 08:33 Acetaminophen 500 Mg Tablet PO 500 mg Q6H PRN Administration fever or pain Acetazolamide 250 mg 03/19/25 08:00 03/25/25 08:26 Acetazolamide Tab 250 Mg Tablet PO 250 mg DAILY@0800 ANGELA Administration Allopurinol 100 mg 03/19/25 08:00 03/25/25 08:26 Allopurinol 100 Mg Tablet PO 100 mg DAILY@0800 ANGELA Administration Apixaban 5 mg 03/18/25 22:45 03/25/25 08:26 Apixaban 5 Mg Tablet PO 5 mg Q12HR ANGELA Administration Bumetanide 2 mg 03/20/25 10:55 03/25/25 08:25 Bumetanide Inj 1 Mg/4 Ml Vial IV PUSH 2 mg BID ANGELA Administration Calcitriol 0.25 mcg 03/19/25 09:00 03/24/25 09:31 Calcitriol 0.25 Mcg Capsule PO 0.25 mcg MoWeFr ANGELA Administration Docusate Sodium 100 mg 03/19/25 09:00 03/25/25 08:26 Docusate Sodium 100 Mg Capsule PO 100 mg Q12HR ANGELA Administration Empagliflozin 10 mg 03/19/25 10:35 03/25/25 08:26 Empagliflozin 10 Mg Tablet PO 10 mg DAILY ANGELA Administration Ergocalciferol 1,250 mcg 03/22/25 09:00 03/22/25 09:05 Ergocalciferol (Vitamin D2) 1,250 Mcg (50,000 Units) Capsule PO 1,250 mcg WEEKLY ANGELA Administration Ergocalciferol 1,250 mcg 03/22/25 09:00 03/22/25 12:54 Ergocalciferol (Vitamin D2) 1,250 Mcg (50,000 Units) Capsule PO 1,250 mcg WEEKLY ANGELA Administration Famotidine 20 mg 03/20/25 21:00 03/25/25 08:25 Famotidine 20 Mg Tablet PO 20 mg Q12HR ANGELA Administration Ferrous Sulfate 325 mg 03/19/25 09:00 03/25/25 08:25 Ferrous Sulfate 325 Mg Tablet PO 325 mg BID ANGELA Administration Fluticasone Propionate 1 spray 03/18/25 22:39 Fluticasone Propionate 0.05% Na Spr 16 Gm Btl (*Bkc) NASAL DAILY PRN Congestion Gabapentin 300 mg 03/20/25 14:00 03/25/25 05:39 Gabapentin 300 Mg Capsule PO 300 mg Q8HR ANGELA Administration Hyoscyamine 0.0625 mg 03/19/25 13:48 03/20/25 09:56 Hyoscyamine Sulfate 0.0625 Mg Tablet PO 0.0625 mg Q4H PRN Administration Bladder Spasm Levothyroxine Sodium 200 mcg 03/19/25 06:30 03/25/25 05:39 Levothyroxine Sodium 100 Mcg Tablet PO 200 mcg DAILY@0630 ANGELA Administration Metolazone 5 mg 03/21/25 09:00 03/25/25 08:26 Metolazone 5 Mg Tablet PO 5 mg QAM ANGELA Administration Metoprolol Tartrate 50 mg 03/19/25 09:00 03/25/25 08:25 Metoprolol Tartrate 50 Mg Tab PO 50 mg Q12HR ANGELA Administration Midodrine 5 mg 03/20/25 13:00 03/25/25 08:36 Midodrine Hcl 2.5 Mg Tablet PO 5 mg TID ANGELA Administration Multi-Ingred Cream/Lotion/Oil/Oint 1 applic 03/19/25 09:00 03/25/25 08:38 Eucerin Cream 120 Gm Jar TOPICAL 1 applic DAILY ANGELA Administration Oxybutynin Chloride 5 mg 03/19/25 12:30 03/25/25 08:26 Oxybutynin Chloride 5 Mg Tablet PO 5 mg TID PRN Administration Bladder Spasm Polyethylene Glycol 17 gm 03/20/25 09:00 03/25/25 08:25 Polyethylene Glycol 3350 17 Gm Powd.Pack PO 17 gm DAILY ANGELA Administration Potassium Chloride 20 meq 03/19/25 08:00 03/25/25 08:26 Potassium Chloride 20 Meq Er Tablet PO 20 meq TIDWM ANGELA Administration Spironolactone 25 mg 03/19/25 09:00 03/25/25 08:26 Spironolactone 25 Mg Tablet PO 25 mg DAILY ANGELA Administration Tamsulosin HCl 0.4 mg 03/19/25 09:00 03/25/25 08:26 Tamsulosin Hcl 0.4 Mg Capsule PO 0.4 mg QAM ANGELA Administration Radiology Results: ITS Impressions Chest X-Ray 03/18/25 13:29 IMPRESSION: 1. No acute cardiopulmonary findings given portable technique. Consider PA and lateral films with deep inspiration. Labs Labs: Laboratory Results - last 24 hr 03/25/25 06:27 Sodium 131 L Potassium 3.4 Chloride 90 L Carbon Dioxide 37 H Anion Gap 4 BUN 45 H Creatinine 2.16 H Estim Creat Clear Calc 39 Estimated GFR 30 L Glucose 84 Calcium 8.9 Total Bilirubin 0.4 AST 23 ALT 8 Alkaline Phosphatase 52 Total Protein 5.3 L Albumin 2.9 L Quality VTE Prophylaxis VTE prophylaxis: pharmacologic ordered
--- NOTE | 2025-03-25 11:14 | PM.PNCARD ---
Progress Note: A&P Assessment and Plan (1) Chronic congestive heart failure: Qualifiers: Heart failure type: combined systolic and diastolic Qualified Code(s): I50.42 - Chronic combined systolic (congestive) and diastolic (congestive) heart failure Code(s): I50.9 - Heart failure, unspecified Status: Chronic (2) Atrial fibrillation: Qualifiers: Atrial fibrillation type: longstanding persistent Qualified Code(s): I48.11 - Longstanding persistent atrial fibrillation Code(s): I48.91 - Unspecified atrial fibrillation Status: Chronic Plan 75-year-old man with: Longstanding history of diastolic dysfunction with many admissions here with volume overload/CHF. He is benefitting from intravenous Bumex and thus far his renal function is holding stable. This will be continued as long as he is benefitting from it and renal function is not deteriorating. Anirudh Wise MD [facility] Subjective Date/time seen: Date of service: 03/25/25 11:14 Interval history: 03/24/25-Patient is sitting up in bed. He states edema feels improved. No c/o any chest pain or shortness of breath. 03/25/2025: Patient is comfortable resting with CPAP in place. He took the CPAP off for conversation he is happy that his IV diuretic regimen is improving his edema including his scrotal edema. Exam Narrative: General: Alert oriented x3, no acute distress Neck: Supple, JVD + Chest: Bilateral clear to auscultation, no rales or rhonchi Cardiac: S1, S2 +, regular rate, regular rhythm, no murmurs or rubs Extremities: R BKA with stump swelling, LLE swelling 2+, no skin rash Neurologic: Alert and oriented x3, no focal neurological deficits Const: General: comfortable and no acute distress HENMT: Mouth: Yes moist mucous membranes Eyes: EOM: EOMs intact bilaterally Neck: Neck: supple and no JVD Resp: Effort & Inspection: normal respiratory effort Auscultation: diminished lung sounds (in bases ) Cardio: Rate: regular rate Rhythm: regular rhythm Heart sounds: no gallops, no murmurs and no rubs Extrem: General: edema and pedal edema Objective Data Vital Signs Vital Signs: Vital Signs - 24 hr 03/24/25 16:00 03/24/25 21:24 03/24/25 21:28 Temperature 36.7 C Pulse Rate 52 L 70 Respiratory Rate 14 Blood Pressure 115/56 L Pulse Oximetry 94 94 Oxygen Delivery CPAP Oxygen Flow Rate 4 03/24/25 21:31 03/25/25 06:47 03/25/25 08:00 Temperature 36.9 C 36.2 C L 36.9 C Pulse Rate 82 102 H 58 L Respiratory Rate 18 16 14 Blood Pressure 117/63 111/62 101/43 L Pulse Oximetry 99 99 97 Oxygen Delivery Oxygen Flow Rate 03/25/25 08:25 Temperature Pulse Rate 102 H Respiratory Rate Blood Pressure Pulse Oximetry Oxygen Delivery Oxygen Flow Rate Intake/Output Intake/Output: Intake & Output 03/22/25 03/23/25 03/24/25 03/25/25 23:59 23:59 23:59 23:59 Intake Total 1730 1866 598 420 Output Total 4308 7380 6082 3275 Balance -2570 -5484 -5427 -2855 Meds/Results Medications: Active Medications Generic Name Dose Route Start Last Admin Trade Name Freq PRN Reason Stop Dose Admin Acetaminophen 500 mg 03/18/25 22:39 03/25/25 08:33 Acetaminophen 500 Mg Tablet PO 500 mg Q6H PRN Administration fever or pain Acetazolamide 250 mg 03/19/25 08:00 03/25/25 08:26 Acetazolamide Tab 250 Mg Tablet PO 250 mg DAILY@0800 ANGELA Administration Allopurinol 100 mg 03/19/25 08:00 03/25/25 08:26 Allopurinol 100 Mg Tablet PO 100 mg DAILY@0800 ANGELA Administration Apixaban 5 mg 03/18/25 22:45 03/25/25 08:26 Apixaban 5 Mg Tablet PO 5 mg Q12HR ANGELA Administration Bumetanide 2 mg 03/20/25 10:55 03/25/25 08:25 Bumetanide Inj 1 Mg/4 Ml Vial IV PUSH 2 mg BID ANGELA Administration Calcitriol 0.25 mcg 03/19/25 09:00 03/24/25 09:31 Calcitriol 0.25 Mcg Capsule PO 0.25 mcg MoWeFr ANGELA Administration Docusate Sodium 100 mg 03/19/25 09:00 03/25/25 08:26 Docusate Sodium 100 Mg Capsule PO 100 mg Q12HR ANGELA Administration Empagliflozin 10 mg 03/19/25 10:35 03/25/25 08:26 Empagliflozin 10 Mg Tablet PO 10 mg DAILY ANGELA Administration Ergocalciferol 1,250 mcg 03/22/25 09:00 03/22/25 09:05 Ergocalciferol (Vitamin D2) 1,250 Mcg (50,000 Units) Capsule PO 1,250 mcg WEEKLY ANGELA Administration Ergocalciferol 1,250 mcg 03/22/25 09:00 03/22/25 12:54 Ergocalciferol (Vitamin D2) 1,250 Mcg (50,000 Units) Capsule PO 1,250 mcg WEEKLY ANGELA Administration Famotidine 20 mg 03/20/25 21:00 03/25/25 08:25 Famotidine 20 Mg Tablet PO 20 mg Q12HR ANGELA Administration Ferrous Sulfate 325 mg 03/19/25 09:00 03/25/25 08:25 Ferrous Sulfate 325 Mg Tablet PO 325 mg BID ANGELA Administration Fluticasone Propionate 1 spray 03/18/25 22:39 Fluticasone Propionate 0.05% Na Spr 16 Gm Btl (*Bkc) NASAL DAILY PRN Congestion Gabapentin 300 mg 03/20/25 14:00 03/25/25 05:39 Gabapentin 300 Mg Capsule PO 300 mg Q8HR ANGELA Administration Hyoscyamine 0.0625 mg 03/19/25 13:48 03/20/25 09:56 Hyoscyamine Sulfate 0.0625 Mg Tablet PO 0.0625 mg Q4H PRN Administration Bladder Spasm Levofloxacin 250 mg 03/25/25 11:00 Levofloxacin 250 Mg Tablet PO Q24H [facility] Levothyroxine Sodium 200 mcg 03/19/25 06:30 03/25/25 05:39 Levothyroxine Sodium 100 Mcg Tablet PO 200 mcg DAILY@0630 [facility] Administration Metolazone 5 mg 03/21/25 09:00 03/25/25 08:26 Metolazone 5 Mg Tablet PO 5 mg QAM [facility] Administration Metoprolol Tartrate 50 mg 03/19/25 09:00 03/25/25 08:25 Metoprolol Tartrate 50 Mg Tab PO 50 mg Q12HR ANGELA Administration Midodrine 5 mg 03/20/25 13:00 03/25/25 08:36 Midodrine Hcl 2.5 Mg Tablet PO 5 mg TID ANGELA Administration Multi-Ingred Cream/Lotion/Oil/Oint 1 applic 03/19/25 09:00 03/25/25 08:38 Eucerin Cream 120 Gm Jar TOPICAL 1 applic DAILY ANGELA Administration Oxybutynin Chloride 5 mg 03/19/25 12:30 03/25/25 08:26 Oxybutynin Chloride 5 Mg Tablet PO 5 mg TID PRN Administration Bladder Spasm Polyethylene Glycol 17 gm 03/20/25 09:00 03/25/25 08:25 Polyethylene Glycol 3350 17 Gm Powd.Pack PO 17 gm DAILY ANGELA Administration Potassium Chloride 20 meq 03/19/25 08:00 03/25/25 08:26 Potassium Chloride 20 Meq Er Tablet PO 20 meq TIDWM ANGELA Administration Spironolactone 25 mg 03/19/25 09:00 03/25/25 08:26 Spironolactone 25 Mg Tablet PO 25 mg DAILY ANGELA Administration Tamsulosin HCl 0.4 mg 03/19/25 09:00 03/25/25 08:26 Tamsulosin Hcl 0.4 Mg Capsule PO 0.4 mg QAM ANGELA Administration Radiology Results: ITS Impressions Chest X-Ray 03/18/25 13:29 IMPRESSION: 1. No acute cardiopulmonary findings given portable technique. Consider PA and lateral films with deep inspiration. Labs Labs: Laboratory Results - last 24 hr 03/25/25 06:27 Sodium 131 L Potassium 3.4 Chloride 90 L Carbon Dioxide 37 H Anion Gap 4 BUN 45 H Creatinine 2.16 H Estim Creat Clear Calc 39 Estimated GFR 30 L Glucose 84 Calcium 8.9 Total Bilirubin 0.4 AST 23 ALT 8 Alkaline Phosphatase 52 Total Protein 5.3 L Albumin 2.9 L
--- NOTE | 2025-03-25 12:32 | P.PNNP_ITS ---
Progress Note: A&P Assessment and Plan (1) Acute kidney injury: Code(s): N17.9 - Acute kidney failure, unspecified Status: Resolved Assessment and Plan: * slow improvement if not stable * as noted by labs on admission (creatinine of 2.84mg/dl) * evaluation to date noted: * urine electrolytes (FeUrea) are prerenal * mild proteinuria * CPK low * UA suggestive of infection - but urine culture negative * based on evidence to date, likely secondary to significant renal venous hypertension - his improvement in renal function/creatinine with diuresis supports this etiology * along with swelling in his LEs and scrotum, he likely has developed swelling in his kidneys * this is further complicated by soft BPs leading to chronic prerenal azotemia (a variation of cardiorenal syndrome) * on midodrine for BP support with ongoing diuresis * follow trend of repeat labs and UOP (2) Stage 3b chronic kidney disease: Code(s): N18.32 - Chronic kidney disease, stage 3b Status: Chronic Assessment and Plan: * baseline creatinine runs ~ 1.7 - 2.3mg/dl in the last year or so * however, has been as low as 1.6mg/dl and as high as 2.7mg/dl in association with acute hospitalizations * this causes him to fluctuate between CKD stage 3b and stage 4 * secondary to hypertensive nephrosclerosis, vascular disease, as well as the necessity of chronic diuretic therapy to maintain his volume status along age- related change * has required acute [employer]/dialysis x 2 in the past for JENA on CKD in association with volume/fluid overload unresponsive to diuretic therapy (3) Anasarca: Code(s): R60.1 - Generalized edema Status: Acute Assessment and Plan: * chronic issue with recurrent exacerbations as noted by his numerous acute hospitalizations * this is felt to be secondary to his severe right-sided heart failure with some possible contributions from his AMELIA * continue diuresis (IV bumex, metolazone, acetazolamide, and spironolactone) * almost 21L negative since admission * continue current therapy (4) Acute on chronic diastolic heart failure: Code(s): I50.33 - Acute on chronic diastolic (congestive) heart failure Status: Acute Assessment and Plan: * as noted by symptoms of shortness of breath and #3 * recent Echo (03/20) noted: * left ventricular systolic function is normal, estimated at 55 - 60% * left ventricular diastolic function is abnormal * mild tricuspid valve regurgitation * no pulmonary hypertension, estimated pulmonary arterial systolic pressure is 30 mmHg * Cardiology recommendations noted * continue diuresis with IV bumex + metolazone + acetazolamide + spironolactone * on midodrine for BP support with diuresis * continue Jardiance * follow I/Os, daily weights, and respiratory status (5) Anemia: Qualifiers: Anemia type: due to chronic kidney disease Chronic kidney disease stage: stage 3 (moderate) Chronic kidney disease stage 3 subtype: unspecified whether 3a or 3b Qualified Code(s): N18.30 - Chronic kidney disease, stage 3 unspecified; D63.1 - Anemia in chronic kidney disease Code(s): D64.9 - Anemia, unspecified Status: Acute Assessment and Plan: * partly due to CKD * anemia studies with iron deficiency * H/H relatively stable * consider IV venofer while hospitalized (6) Hyponatremia: Code(s): E87.1 - Hypo-osmolality and hyponatremia Status: Chronic Assessment and Plan: * chronic issue at baseline * likely due to chronic CHF and necessity of diuretic therapy * follow trend of sodium (7) Atrial fibrillation: Qualifiers: Atrial fibrillation type: longstanding persistent Qualified Code(s): I 48.11 - Longstanding persistent atrial fibrillation Code(s): I48.91 - Unspecified atrial fibrillation Status: Chronic Assessment and Plan: * rate control strategy * on metoprolol * on eliquis (8) AMELIA (obstructive sleep apnea): Code(s): G47.33 - Obstructive sleep apnea (adult) (pediatric) Status: Chronic Assessment and Plan: * continue CPAP at night and with rest Will continue to follow. L Subjective Date/time seen: 03/25/25 12:32 Interval history: Follow-up for acute kidney injury/acute renal failure on chronic kidney disease and anasarca Feels reasonably well when seen; no apparent distress voiced at the time of my visit; continues to have excellent urine output with diuretic therapy and relative stability in overall renal function as well; no other acute complaints noted. Exam 2 Narrative: General: large but WD/WN male in NAD Heart: normal S1 and S2; no rub Lungs: clear but decreased at bases Abdomen: obese but soft, nontender, nondistended, positive bowel sounds Extremities: no cyanosis or clubbing; 2+ edema; s/p right BKA Skin: chronic changes noted in LLE Objective Data Vital Signs Vital Signs: Vital Signs Temp Pulse Resp BP Pulse Ox O2 Del Method O2 Flow Rate 03/25/25 08:25 102 H 03/25/25 08:00 Room Air 03/25/25 08:00 98.5 F 58 L 14 101/43 L 97 03/25/25 06:47 97.1 F L 102 H 16 111/62 99 03/24/25 21:31 98.4 F 82 18 117/63 99 03/24/25 21:28 94 CPAP 4 03/24/25 21:24 70 Intake/Output Intake/Output: Intake & Output 03/22/25 03/23/25 03/24/25 03/25/25 23:59 23:59 23:59 23:59 Intake Total 1730 0337 351 7626 Output Total 4300 7350 6081 4625 Balance -2570 -5484 -5427 -2785 Meds/Results Medications: Active Medications Generic Name Dose Route Start Last Admin Trade Name Freq PRN Reason Stop Dose Admin Acetaminophen 500 mg 03/18/25 22:39 03/25/25 08:33 Acetaminophen 500 Mg Tablet PO 500 mg Q6H PRN Administration fever or pain Acetazolamide 250 mg 03/19/25 08:00 03/25/25 08:26 Acetazolamide Tab 250 Mg Tablet PO 250 mg DAILY@0800 ANGELA Administration Allopurinol 100 mg 03/19/25 08:00 03/25/25 08:26 Allopurinol 100 Mg Tablet PO 100 mg DAILY@0800 ANGELA Administration Apixaban 5 mg 03/18/25 22:45 03/25/25 08:26 Apixaban 5 Mg Tablet PO 5 mg Q12HR ANGELA Administration Bumetanide 2 mg 03/20/25 10:55 03/25/25 16:15 Bumetanide Inj 1 Mg/4 Ml Vial IV PUSH 2 mg BID ANGELA Administration Calcitriol 0.25 mcg 03/19/25 09:00 03/24/25 09:31 Calcitriol 0.25 Mcg Capsule PO 0.25 mcg MoWeFr ANGELA Administration Docusate Sodium 100 mg 03/19/25 09:00 03/25/25 08:26 Docusate Sodium 100 Mg Capsule PO 100 mg Q12HR ANGELA Administration Empagliflozin 10 mg 03/19/25 10:35 03/25/25 08:26 Empagliflozin 10 Mg Tablet PO 10 mg DAILY ANGELA Administration Ergocalciferol 1,250 mcg 03/22/25 09:00 03/22/25 09:05 Ergocalciferol (Vitamin D2) 1,250 Mcg (50,000 Units) Capsule PO 1,250 mcg WEEKLY ANGELA Administration Ergocalciferol 1,250 mcg 03/22/25 09:00 03/22/25 12:54 Ergocalciferol (Vitamin D2) 1,250 Mcg (50,000 Units) Capsule PO 1,250 mcg WEEKLY ANGELA Administration Famotidine 20 mg 03/20/25 21:00 03/25/25 08:25 Famotidine 20 Mg Tablet PO 20 mg Q12HR ANGELA Administration Ferrous Sulfate 325 mg 03/19/25 09:00 03/25/25 16:15 Ferrous Sulfate 325 Mg Tablet PO 325 mg BID ANGELA Administration Fluticasone Propionate 1 spray 03/18/25 22:39 Fluticasone Propionate 0.05% Na Spr 16 Gm Btl (*Bkc) NASAL DAILY PRN Congestion Gabapentin 300 mg 03/20/25 14:00 03/25/25 13:22 Gabapentin 300 Mg Capsule PO 300 mg Q8HR ANGELA Administration Hyoscyamine 0.0625 mg 03/19/25 13:48 03/20/25 09:56 Hyoscyamine Sulfate 0.0625 Mg Tablet PO 0.0625 mg Q4H PRN Administration Bladder Spasm Levofloxacin 250 mg 03/25/25 11:00 03/25/25 11:56 Levofloxacin 250 Mg Tablet PO 250 mg Q24H ANGELA Administration Levothyroxine Sodium 200 mcg 03/19/25 06:30 03/25/25 05:39 Levothyroxine Sodium 100 Mcg Tablet PO 200 mcg DAILY@0630 ANGELA Administration Metolazone 5 mg 03/21/25 09:00 03/25/25 08:26 Metolazone 5 Mg Tablet PO 5 mg QAM ANGELA Administration Metoprolol Tartrate 50 mg 03/19/25 09:00 03/25/25 08:25 Metoprolol Tartrate 50 Mg Tab PO 50 mg Q12HR ANGELA Administration Midodrine 5 mg 03/20/25 13:00 03/25/25 16:20 Midodrine Hcl 2.5 Mg Tablet PO 5 mg TID ANGELA Administration Multi-Ingred Cream/Lotion/Oil/Oint 1 applic 03/19/25 09:00 03/25/25 08:38 Eucerin Cream 120 Gm Jar TOPICAL 1 applic DAILY ANGELA Administration Oxybutynin Chloride 5 mg 03/19/25 12:30 03/25/25 08:26 Oxybutynin Chloride 5 Mg Tablet PO 5 mg TID PRN Administration Bladder Spasm Polyethylene Glycol 17 gm 03/20/25 09:00 03/25/25 08:25 Polyethylene Glycol 3350 17 Gm Powd.Pack PO 17 gm DAILY ANGELA Administration Potassium Chloride 20 meq 03/19/25 08:00 03/25/25 16:15 Potassium Chloride 20 Meq Er Tablet PO 20 meq TIDWM ANGELA Administration Spironolactone 25 mg 03/19/25 09:00 03/25/25 08:26 Spironolactone 25 Mg Tablet PO 25 mg DAILY ANGELA Administration Tamsulosin HCl 0.4 mg 03/19/25 09:00 03/25/25 08:26 Tamsulosin Hcl 0.4 Mg Capsule PO 0.4 mg QAM ANGELA Administration Radiology Results: ITS Impressions Chest X-Ray 03/18/25 13:29 IMPRESSION: 1. No acute cardiopulmonary findings given portable technique. Consider PA and lateral films with deep inspiration. Labs Labs: Laboratory Tests 03/24/25 05:26 03/25/25 06:27 Calcium 8.9 Total Bilirubin 0.4 AST 23 ALT 8 Alkaline Phosphatase 52 Total Protein 5.3 L Albumin 2.9 L Microbiology 03/19/25 00:04 Blood Blood Culture - Final 03/19/25 00:04 Blood Blood Culture - Final
[2025-03-25 16:00] VITALS: BP 101/52; PULSE 93; RESP 13; TEMP 37.1; O2SAT 96
[2025-03-25 21:22] VITALS: BP 113/54; PULSE 61; RESP 17; TEMP 36.5; O2SAT 98
[2025-03-25 22:10] VITALS: PULSE 85; O2SAT 97
[2025-03-26 05:33] LABS: Hematocrit 35.8 % (42.0-52.0); Hemoglobin 10.3 g/dL (14.0-18.0); Mean Corpuscular HGB Conc 28.8 g/dl (32-36); Mean Corpuscular Hemoglobin 25.3 pg (26-34); Mean Corpuscular Volume 88.0 fl (80-100); Platelet Count Result 297 k/mm3 (150-375); Red Blood Count 4.07 M/mm3 (4.6-6.20); White Blood Count 8.7 K/mm3 (4.5-10.0)
[2025-03-26 05:53] VITALS: BP 106/51; PULSE 60; RESP 14; TEMP 36.6; O2SAT 99
[2025-03-26 05:58] LABS: Alanine Aminotransferase 8 U/L (6-50); Albumin Level 3.1 g/dL (3.5-5.1); Alkaline Phosphatase 57 U/L (38-126); Anion Gap 4 mmol/L (4-12); Aspartate Amino Transferase 23 U/L (17-59); Bilirubin,Total 0.5 mg/dL (0.2-1.3); Blood Urea Nitrogen 44 mg/dL (9-20); Calcium 9.1 mg/dL (8.4-10.2); Carbon Dioxide 35 mmol/L (22-30); Chloride 90 mmol/L (98-107); Estimated CRCL calculation 37 ml/min; Estimated Glomerular Filt Rate 28; Glucose 87 mg/dL (65-110); Magnesium 2.5 mg/dL (1.6-2.3); Potassium 4.0 mmol/L (3.4-5.0); Sodium 129 mmol/L (137-145); Total Protein 5.6 g/dL (6.3-8.2)
[2025-03-26] MEDS: LEVOTHYROXINE SODIUM 100 MCG TABLET 200 MCG PO (06:14)
[2025-03-26] MEDS: GABAPENTIN 300 MG CAPSULE PO ×3 (06:14→21:15)
[2025-03-26] MEDS: TAMSULOSIN HCL 0.4 MG CAPSULE PO (08:52)
[2025-03-26] MEDS: EMPAGLIFLOZIN 10 MG TABLET PO (08:52)
[2025-03-26] MEDS: APIXABAN 5 MG TABLET PO ×2 (08:52→21:15)
[2025-03-26] MEDS: BUMETANIDE INJ 1 MG/4 ML VIAL 2 MG IV PUSH ×2 (08:52→16:30)
[2025-03-26] MEDS: FAMOTIDINE 20 MG TABLET PO ×2 (08:52→21:15)
[2025-03-26] MEDS: DOCUSATE SODIUM 100 MG CAPSULE PO ×2 (08:52→21:15)
[2025-03-26] MEDS: MIDODRINE HCL 2.5 MG TABLET 5 MG PO ×3 (08:52→16:30)
[2025-03-26] MEDS: acetaZOLAMIDE TAB 250 MG TABLET PO (08:53)
[2025-03-26] MEDS: FERROUS SULFATE 325 MG TABLET PO ×2 (08:53→16:30)
[2025-03-26] MEDS: SPIRONOLACTONE 25 MG TABLET PO (08:53)
[2025-03-26] MEDS: METOPROLOL TARTRATE 50 MG TAB PO ×2 (08:53→21:15)
[2025-03-26] MEDS: POTASSIUM CHLORIDE 20 MEQ ER TABLET PO ×3 (08:53→16:30)
[2025-03-26] MEDS: EUCERIN CREAM 120 GM JAR 1 APPLIC TOPICAL (08:53)
[2025-03-26] MEDS: ACETAMINOPHEN 500 MG TABLET PO ×2 (08:58→21:16)
--- NOTE | 2025-03-26 09:42 | PCPTNOTE ---
Attempted to see patient for PT, however patient was on bed muñoz and declined PT at this time.
--- NOTE | 2025-03-26 10:36 | P.PNNP_ITS ---
Progress Note: A&P Assessment and Plan (1) Acute kidney injury: Code(s): N17.9 - Acute kidney failure, unspecified Status: Resolved Assessment and Plan: * slow improvement if not stable * as noted by labs on admission (creatinine of 2.84mg/dl) * evaluation to date noted: * urine electrolytes (FeUrea) are prerenal * mild proteinuria * CPK low * UA suggestive of infection - but urine culture negative * based on evidence to date, likely secondary to significant renal venous hypertension - his improvement in renal function/creatinine with diuresis supports this etiology * along with swelling in his LEs and scrotum, he likely has developed swelling in his kidneys * this is further complicated by soft BPs leading to chronic prerenal azotemia (a variation of cardiorenal syndrome) * on midodrine for BP support with ongoing diuresis * follow trend of repeat labs and UOP (2) Stage 3b chronic kidney disease: Code(s): N18.32 - Chronic kidney disease, stage 3b Status: Chronic Assessment and Plan: * baseline creatinine runs ~ 1.7 - 2.3mg/dl in the last year or so * however, has been as low as 1.6mg/dl and as high as 2.7mg/dl in association with acute hospitalizations * this causes him to fluctuate between CKD stage 3b and stage 4 * secondary to hypertensive nephrosclerosis, vascular disease, as well as the necessity of chronic diuretic therapy to maintain his volume status along age- related change * has required acute [facility] BLE[employer]ER/dialysis x 2 in the past for JENA on CKD in association with volume/fluid overload unresponsive to diuretic therapy (3) Anasarca: Code(s): R60.1 - Generalized edema Status: Acute Assessment and Plan: * chronic issue with recurrent exacerbations as noted by his numerous acute hospitalizations * this is felt to be secondary to his severe right-sided heart failure with some possible contributions from his AMELIA * continue diuresis (IV bumex, metolazone, acetazolamide, and spironolactone) * almost 27L negative since admission * continue current therapy (4) Acute on chronic diastolic heart failure: Code(s): I50.33 - Acute on chronic diastolic (congestive) heart failure Status: Acute Assessment and Plan: * as noted by symptoms of shortness of breath and #3 * recent Echo (03/20) noted: * left ventricular systolic function is normal, estimated at 55 - 60% * left ventricular diastolic function is abnormal * mild tricuspid valve regurgitation * no pulmonary hypertension, estimated pulmonary arterial systolic pressure is 30 mmHg * Cardiology recommendations noted * continue diuresis with IV bumex + metolazone + acetazolamide + spironolactone * on midodrine for BP support with diuresis * continue Jardiance * follow I/Os, daily weights, and respiratory status (5) Anemia: Qualifiers: Anemia type: due to chronic kidney disease Chronic kidney disease stage: stage 3 (moderate) Chronic kidney disease stage 3 subtype: unspecified whether 3a or 3b Qualified Code(s): N18.30 - Chronic kidney disease, stage 3 unspecified; D63.1 - Anemia in chronic kidney disease Code(s): D64.9 - Anemia, unspecified Status: Acute Assessment and Plan: * partly due to CKD * anemia studies with iron deficiency * H/H relatively stable * consider IV venofer while hospitalized (6) Hyponatremia: Code(s): E87.1 - Hypo-osmolality and hyponatremia Status: Chronic Assessment and Plan: * chronic issue at baseline * likely due to chronic CHF and necessity of diuretic therapy * follow trend of sodium (7) Atrial fibrillation: Qualifiers: Atrial fibrillation type: longstanding persistent Qualified Code(s): I 48.11 - Longstanding persistent atrial fibrillation Code(s): I48.91 - Unspecified atrial fibrillation Status: Chronic Assessment and Plan: * rate control strategy * on metoprolol * on eliquis (8) AMELIA (obstructive sleep apnea): Code(s): G47.33 - Obstructive sleep apnea (adult) (pediatric) Status: Chronic Assessment and Plan: * continue CPAP at night and with rest Will continue to follow. L Subjective Date/time seen: 03/26/25 10:36 Interval history: Follow-up for acute kidney injury/acute renal failure on chronic kidney disease. Continues to have good diuresis in response to diuretic therapy with relative stability in renal function/creatinine; does report some mild dizziness/lightheadedness at the time of my visit which was not present yesterday; otherwise, no apparent distress voiced; no other issues/events overnight or earlier this morning. Exam 2 Narrative: General: large but WD/WN male in NAD Heart: normal S1 and S2; no rub Lungs: clear but decreased at bases Abdomen: obese but soft, nontender, nondistended, positive bowel sounds Extremities: no cyanosis or clubbing; 2+ edema; s/p right BKA Skin: chronic changes present in LLE Objective Data Vital Signs Vital Signs: Vital Signs Temp Pulse Resp BP Pulse Ox O2 Del Method 03/26/25 05:53 97.8 F 60 14 106/51 L 99 03/26/25 03:03 Autopap 03/25/25 22:10 85 97 Autopap 03/25/25 21:22 97.7 F 61 17 113/54 L 98 03/25/25 20:00 Room Air Intake/Output Intake/Output: Intake & Output 03/23/25 03/24/25 03/25/25 03/26/25 23:59 23:59 23:59 23:59 Intake Total 6396 183 1727 1150 Output Total 7325 6033 4678 5270 [facility] -5484 -5427 -2785 -2450 Meds/Results Medications: Active Medications Generic Name Dose Route Start Last Admin Trade Name Freq PRN Reason Stop Dose Admin Acetaminophen 500 mg 03/18/25 22:39 03/26/25 08:58 Acetaminophen 500 Mg Tablet PO 500 mg Q6H PRN Administration fever or pain Acetazolamide 250 mg 03/19/25 08:00 03/26/25 08:53 Acetazolamide Tab 250 Mg Tablet PO 250 mg DAILY@0800 ANGELA Administration Allopurinol 100 mg 03/19/25 08:00 03/26/25 08:52 Allopurinol 100 Mg Tablet PO 100 mg DAILY@0800 ANGELA Administration Apixaban 5 mg 03/18/25 22:45 03/26/25 08:52 Apixaban 5 Mg Tablet PO 5 mg Q12HR ANGELA Administration Bumetanide 2 mg 03/20/25 10:55 03/26/25 08:52 Bumetanide Inj 1 Mg/4 Ml Vial IV PUSH 2 mg BID ANGELA Administration Calcitriol 0.25 mcg 03/19/25 09:00 03/26/25 08:58 Calcitriol 0.25 Mcg Capsule PO 0.25 mcg MoWeFr ANGELA Administration Docusate Sodium 100 mg 03/19/25 09:00 03/26/25 08:52 Docusate Sodium 100 Mg Capsule PO 100 mg Q12HR ANGELA Administration Empagliflozin 10 mg 03/19/25 10:35 03/26/25 08:52 Empagliflozin 10 Mg Tablet PO 10 mg DAILY ANGELA Administration Ergocalciferol 1,250 mcg 03/22/25 09:00 03/22/25 09:05 Ergocalciferol (Vitamin D2) 1,250 Mcg (50,000 Units) Capsule PO 1,250 mcg WEEKLY ANGELA Administration Ergocalciferol 1,250 mcg 03/22/25 09:00 03/22/25 12:54 Ergocalciferol (Vitamin D2) 1,250 Mcg (50,000 Units) Capsule PO 1,250 mcg WEEKLY ANGELA Administration Famotidine 20 mg 03/20/25 21:00 03/26/25 08:52 Famotidine 20 Mg Tablet PO 20 mg Q12HR ANGELA Administration Ferrous Sulfate 325 mg 03/19/25 09:00 03/26/25 08:53 Ferrous Sulfate 325 Mg Tablet PO 325 mg BID ANGELA Administration Fluticasone Propionate 1 spray 03/18/25 22:39 Fluticasone Propionate 0.05% Na Spr 16 Gm Btl (*Bkc) NASAL DAILY PRN Congestion Gabapentin 300 mg 03/20/25 14:00 03/26/25 13:40 Gabapentin 300 Mg Capsule PO 300 mg Q8HR ANGELA Administration Hyoscyamine 0.0625 mg 03/19/25 13:48 03/20/25 09:56 Hyoscyamine Sulfate 0.0625 Mg Tablet PO 0.0625 mg Q4H PRN Administration Bladder Spasm Levofloxacin 250 mg 03/25/25 11:00 03/26/25 12:31 Levofloxacin 250 Mg Tablet PO 250 mg Q24H ANGELA Administration Levothyroxine Sodium 200 mcg 03/19/25 06:30 03/26/25 06:14 Levothyroxine Sodium 100 Mcg Tablet PO 200 mcg DAILY@0630 ANGELA Administration Metolazone 5 mg 03/21/25 09:00 03/26/25 08:52 Metolazone 5 Mg Tablet PO 5 mg QAM ANGELA Administration Metoprolol Tartrate 50 mg 03/19/25 09:00 03/26/25 08:53 Metoprolol Tartrate 50 Mg Tab PO 50 mg Q12HR ANGELA Administration Midodrine 5 mg 03/20/25 13:00 03/26/25 13:41 Midodrine Hcl 2.5 Mg Tablet PO 5 mg TID ANGELA Administration Multi-Ingred Cream/Lotion/Oil/Oint 1 applic 03/19/25 09:00 03/26/25 08:53 Eucerin Cream 120 Gm Jar TOPICAL 1 applic DAILY ANGELA Administration Oxybutynin Chloride 5 mg 03/19/25 12:30 03/25/25 08:26 Oxybutynin Chloride 5 Mg Tablet PO 5 mg TID PRN Administration Bladder Spasm Polyethylene Glycol 17 gm 03/20/25 09:00 03/26/25 08:53 Polyethylene Glycol 3350 17 Gm Powd.Pack PO 17 gm DAILY ANGELA Administration Potassium Chloride 20 meq 03/19/25 08:00 03/26/25 12:31 Potassium Chloride 20 Meq Er Tablet PO 20 meq TIDWM ANGELA Administration Spironolactone 25 mg 03/19/25 09:00 03/26/25 08:53 Spironolactone 25 Mg Tablet PO 25 mg DAILY ANGELA Administration Tamsulosin HCl 0.4 mg 03/19/25 09:00 03/26/25 08:52 Tamsulosin Hcl 0.4 Mg Capsule PO 0.4 mg QAM ANGELA Administration Radiology Results: ITS Impressions Chest X-Ray 03/18/25 13:29 IMPRESSION: 1. No acute cardiopulmonary findings given portable technique. Consider PA and lateral films with deep inspiration. Labs Labs: Laboratory Tests 03/26/25 04:49 03/26/25 04:49 Calcium 9.1 Phosphorus 4.7 H Magnesium 2.5 H Total Bilirubin 0.5 AST 23 ALT 8 Alkaline Phosphatase 57 Total Protein 5.6 L Albumin 3.1 L Microbiology 03/19/25 00:04 Blood Blood Culture - Final 03/19/25 00:04 Blood Blood Culture - Final
--- NOTE | 2025-03-26 12:38 | PM.IMPN2 ---
Assessment and Plan Assessment and Plan (1) Acute on chronic diastolic heart failure: Code(s): I50.33 - Acute on chronic diastolic (congestive) heart failure Status: Acute Assessment and Plan: -echo on 12/17/2024 was read as left ventricular systolic function is normal estimated at 65-70, left ventricular diastolic function is abnormal. -patient 2+ the 3+ pitting edema to left lower extremity. -IV Bumex has been ordered. The patient got a dose of Lasix in the emergency room. Monitor renal function closely. Continue with potassium supplement as well. -continue with Aldactone. -continue with Zaroxolyn -cardiology consulted: Appreciate nephrology input. Midodrine was added to help with BP Decrease Bumex to 1mg IV BID Continue metolazone Continue spironolactone Continue metoprolol with holding parameters (hold for SBP<110mm Hg) Continue empagliflozin Continue Eliquis for anticoagulation for A fib/flutter Check weight, ins and outs, and renal function daily Check and replace electrolytes to keep K>4 and Mg>2 Monitor on telemetry 03/22 - cardiology, DR Kirk was not sure why pt on minoxidil- so i was held- will let cardiology decide if pt needs to be on it or not -i/o reviewed, he is diuresing well. 03/23 - cr/bun 2. bumex 2gm iv iv push bid, metolazone 5 mg -continue Jardiance 10 mg p.o. daily, spironolactone 25 mg p.o. daily -on azetazolamide 250mg PO daily -require midodrine 5 mg p.o. t.i.d. while being diuresed 03/24 Getting slightly better today. Continue diuresis. 03/25/2025 Gradually improving, will contnue current treatment, nephrology on board. 03/26/2025: Weight coming down. On Bumex 2 mg IV b.i.d. metolazone spironolactone. (2) Cardiac enzymes elevated: Code(s): R74.8 - Abnormal levels of other serum enzymes Status: Acute Assessment and Plan: -cardiology has been consulted. -troponin 0.057, 0.061. Repeat troponin in the a.m.. -the patient is not short of breath or having any chest pain. -this could be related to his CHF and are chronic renal failure. (3) UTI (urinary tract infection): Code(s): N39.0 - Urinary tract infection, site not specified Status: Acute Assessment and Plan: -he was started on Rocephin. Swith to Po antibiotics to levofloxacin 250 mg every 24 hour (4) Atrial fibrillation: Qualifiers: Atrial fibrillation type: longstanding persistent Qualified Code(s): I48.11 - Longstanding persistent atrial fibrillation Code(s): I48.91 - Unspecified atrial fibrillation Status: Chronic Assessment and Plan: -the patient is currently in sinus rhythm. -continue with Eliquis -continue with metoprolol -rate is controlled at this time. - bleeding precautions (5) Venous stasis dermatitis: Code(s): I87.2 - Venous insufficiency (chronic) (peripheral) Status: Acute Assessment and Plan: -continue with lanolin oil patient has a right [id number] amputation that is fairly new from a couple months ago. (6) Peripheral vascular disease: Code(s): I73.9 - Peripheral vascular disease, unspecified Status: Acute Assessment and Plan: -the patient is on apixaban. (7) Dyslipidemia: Code(s): E78.5 - Hyperlipidemia, unspecified Status: Acute Assessment and Plan: -continue with home medications. The patient does not appear to be on any statins for unknown reasons. (8) Hypothyroidism: Qualifiers: Hypothyroidism type: acquired Qualified Code(s): E03.9 - Hypothyroidism, unspecified Code(s): E03.9 - Hypothyroidism, unspecified Status: Chronic Assessment and Plan: -continue with levothyroxine (9) CKD (chronic kidney disease) stage 3, GFR 30-59 ml/min: Qualifiers: Chronic kidney disease stage 3 subtype: stage 3b (GFR 30-44) Qualified Code(s): N18.32 - Chronic kidney disease, stage 3b Code(s): N18.3 - Chronic kidney disease, stage 3 (moderate) Status: Acute Assessment and Plan: -creatinine 2.84 which is slightly above his baseline of 1.9-2.8. His GFR is 22 which is slightly lower than his baseline of 31-34 -monitor BMP daily. -may consider Nephrology consult if labs worsen with diuretics. -nephrology consulted: at this point will give him midodrine to get the blood pressure back up, and continue diuretics. I will increase the metolazone to5mg once a day, change his bumetanide to2mg IV twice a day, and continue the spironolactone and acetazolamide 03/24 continue diuresing monitor daily labs 03/25- continue diuresing, midodrine to help wit BP slowly improving but not at his baseline yet Dr Al is fooliowng (10) Anemia of chronic disease: Code(s): D63.8 - Anemia in other chronic diseases classified elsewhere Status: Acute Assessment and Plan: -the patient is slightly above his baseline. This appears to be stable. Most likely secondary to his chronic renal failure. - monitor (11) AMELIA (obstructive sleep apnea): Code(s): G47.33 - Obstructive sleep apnea (adult) (pediatric) Status: Chronic Assessment and Plan: The patient brought his own CPAP machine, he may continue to use this . (12) Gout: Qualifiers: Gout site: multiple sites Gout etiology: unspecified cause Chronicity: chronic Qualified Code(s): M1A.09X0 - Idiopathic chronic gout, multiple sites, without tophus (tophi) Code(s): M10.9 - Gout, unspecified Status: Acute Assessment and Plan: Stable on current meds (13) Rosacea: Code(s): L71.9 - Rosacea, unspecified Status: Acute Assessment and Plan: Stable on current meds Plan The patient has chronic hyponatremia. Most likely secondary to his CHF with 3rd spacing. Subjective Date/time seen: 03/26/25 12:38 Interval history: No overnight events. Feels well. Diuresing well. Weight is down. Labs reviewed. Review of Systems Constitutional: Constitutional: Reports as per HPI and Reports no additional constitutional complaints Eyes: Eyes: Reports as per HPI and Reports no additional eye complaints ENT: Reports system reviewed and no additional complaints, except as documented and Reports Normal hearing present Cardiovascular: Cardiovascular: Reports no additional cardiovascular complaints Respiratory: Respiratory: Reports as per HPI and Reports no additional respiratory complaints Gastrointestinal: Gastrointestinal: Reports as per HPI and Reports no additional gastrointestinal complaints Musculoskeletal: Musculoskeletal: Reports no additional musculoskeletal complaints Integumentary/Breasts: Skin/Breast: Reports system reviewed and no additional complaints, except as docu Neurologic: Reports system reviewed and no additional complaints, except as documented and Reports Normal hearing present Psychiatric: Psychiatric: Reports no additional psychiatric complaints and Reports as per HPI Hematologic/Lymphatic: Hematologic/Lymphatic: Reports no additional hematologic/lymphatic complaints Allergic/Immunologic: Allergic/Immunologic: Reports no additional allergic/immunologic complaints Exam Const: General: cooperative, comfortable, no acute distress, well developed, awake, Physically active, average body habitus and well nourished Nutritional Appearance: average body habitus and well nourished Orientation/consciousness: oriented to person, oriented to place, oriented to time and patient oriented x3 Limitations: no limitations HENMT: Head: normal to inspection, No palpable skull fracture present, normocephalic, atraumatic and abrasion Ears: hearing grossly normal bilaterally Eyes: General: appearance normal, both eyes and all related structures Alignment and Position: alignment normal Periorbital: periorbital findings normal Eyelids: eyelids normal Neck: Neck: normal visual inspection, full ROM and no lymphadenopathy Chest: Chest palpation & inspection: normal inspection of the chest Resp: Effort & Inspection: normal respiratory effort Auscultation: clear to auscultation bilaterally Cardio: Palpation: normal PMI Rate: regular rate Rhythm: regular rhythm Heart sounds: S1 normal heart sound present and S2 normal heart sound present GI: Inspection: normal to inspection Auscultation: normal bowel sounds : General: Yes no CVA tenderness Back/Spine/Pelvis: Back: no CVA tenderness Cervical Spine: cervical ROM normal Skin: General skin exam: normal color Lesions: no lesions Rashes: no rashes Trauma: no lacerations or abrasions Wounds: no wounds Hair: normal Nails: normal Neuro: General: oriented to person, oriented to place, oriented to time and patient oriented x3 Cranial nerves: Yes Normal hearing present Cognition (Neuro): normal cognition Speech: normal speech Extrem: General: normal to inspection and edema Right upper extremity: normal to inspection and shoulder/upper arm Left upper extremity: normal to inspection and shoulder/upper arm Psych: Appearance: grossly normal Mental Status: mental status grossly normal Speech and movement: Normal speech and movement present Affect: normal affect Attitude: cooperative Thought process: Normal thought process present Insight: Good insight present (Psych) Judgement: Good judgement present (Psych) Objective Data Vital Signs Vital Signs: Vital Signs - 24 hr 03/25/25 16:00 03/25/25 20:00 03/25/25 21:22 Temperature 98.7 F 97.7 F Pulse Rate 93 61 Respiratory Rate 13 17 Blood Pressure 101/52 L 113/54 L Pulse Oximetry 96 98 Oxygen Delivery Room Air 03/25/25 22:10 03/26/25 03:03 03/26/25 05:53 Temperature 97.8 F Pulse Rate 85 60 Respiratory Rate 14 Blood Pressure 106/51 L Pulse Oximetry 97 99 Oxygen Delivery Autopap Autopap Intake/Output Intake/Output: Intake & Output 03/23/25 03/24/25 03/25/25 03/26/25 23:59 23:59 23:59 23:59 Intake Total 1238 680 3172 950 Output Total 4617 6050 4675 0476 [facility]5484 -5427 -2785 -2650 Meds/Results Medications: Active Medications Generic Name Dose Route Start Last Admin Trade Name Freq PRN Reason Stop Dose Admin Acetaminophen 500 mg 03/18/25 22:39 03/26/25 08:58 Acetaminophen 500 Mg Tablet PO 500 mg Q6H PRN Administration fever or pain Acetazolamide 250 mg 03/19/25 08:00 03/26/25 08:53 Acetazolamide Tab 250 Mg Tablet PO 250 mg DAILY@0800 ANGELA Administration Allopurinol 100 mg 03/19/25 08:00 03/26/25 08:52 Allopurinol 100 Mg Tablet PO 100 mg DAILY@0800 ANGELA Administration Apixaban 5 mg 03/18/25 22:45 03/26/25 08:52 Apixaban 5 Mg Tablet PO 5 mg Q12HR ANGELA Administration Bumetanide 2 mg 03/20/25 10:55 03/26/25 08:52 Bumetanide Inj 1 Mg/4 Ml Vial IV PUSH 2 mg BID ANGELA Administration Calcitriol 0.25 mcg 03/19/25 09:00 03/26/25 08:58 Calcitriol 0.25 Mcg Capsule PO 0.25 mcg MoWeFr ANGELA Administration Docusate Sodium 100 mg 03/19/25 09:00 03/26/25 08:52 Docusate Sodium 100 Mg Capsule PO 100 mg Q12HR ANGELA Administration Empagliflozin 10 mg 03/19/25 10:35 03/26/25 08:52 Empagliflozin 10 Mg Tablet PO 10 mg DAILY ANGELA Administration Ergocalciferol 1,250 mcg 03/22/25 09:00 03/22/25 09:05 Ergocalciferol (Vitamin D2) 1,250 Mcg (50,000 Units) Capsule PO 1,250 mcg WEEKLY ANGELA Administration Ergocalciferol 1,250 mcg 03/22/25 09:00 03/22/25 12:54 Ergocalciferol (Vitamin D2) 1,250 Mcg (50,000 Units) Capsule PO 1,250 mcg WEEKLY ANGELA Administration Famotidine 20 mg 03/20/25 21:00 03/26/25 08:52 Famotidine 20 Mg Tablet PO 20 mg Q12HR ANGELA Administration Ferrous Sulfate 325 mg 03/19/25 09:00 03/26/25 08:53 Ferrous Sulfate 325 Mg Tablet PO 325 mg BID ANGELA Administration Fluticasone Propionate 1 spray 03/18/25 22:39 Fluticasone Propionate 0.05% Na Spr 16 Gm Btl (*Bkc) NASAL DAILY PRN Congestion Gabapentin 300 mg 03/20/25 14:00 03/26/25 06:14 Gabapentin 300 Mg Capsule PO 300 mg Q8HR ANGELA Administration Hyoscyamine 0.0625 mg 03/19/25 13:48 03/20/25 09:56 Hyoscyamine Sulfate 0.0625 Mg Tablet PO 0.0625 mg Q4H PRN Administration Bladder Spasm Levofloxacin 250 mg 03/25/25 11:00 03/26/25 12:31 Levofloxacin 250 Mg Tablet PO 250 mg Q24H ANGELA Administration Levothyroxine Sodium 200 mcg 03/19/25 06:30 03/26/25 06:14 Levothyroxine Sodium 100 Mcg Tablet PO 200 mcg DAILY@0630 ANGELA Administration Metolazone 5 mg 03/21/25 09:00 03/26/25 08:52 Metolazone 5 Mg Tablet PO 5 mg QAM ANGELA Administration Metoprolol Tartrate 50 mg 03/19/25 09:00 03/26/25 08:53 Metoprolol Tartrate 50 Mg Tab PO 50 mg Q12HR ANGELA Administration Midodrine 5 mg 03/20/25 13:00 03/26/25 08:52 Midodrine Hcl 2.5 Mg Tablet PO 5 mg TID ANGELA Administration Multi-Ingred Cream/Lotion/Oil/Oint 1 applic 03/19/25 09:00 03/26/25 08:53 Eucerin Cream 120 Gm Jar TOPICAL 1 applic DAILY ANGELA Administration Oxybutynin Chloride 5 mg 03/19/25 12:30 03/25/25 08:26 Oxybutynin Chloride 5 Mg Tablet PO 5 mg TID PRN Administration Bladder Spasm Polyethylene Glycol 17 gm 03/20/25 09:00 03/26/25 08:53 Polyethylene Glycol 3350 17 Gm Powd.Pack PO 17 gm DAILY ANGELA Administration Potassium Chloride 20 meq 03/19/25 08:00 03/26/25 12:31 Potassium Chloride 20 Meq Er Tablet PO 20 meq TIDWM ANGELA Administration Spironolactone 25 mg 03/19/25 09:00 03/26/25 08:53 Spironolactone 25 Mg Tablet PO 25 mg DAILY ANGELA Administration Tamsulosin HCl 0.4 mg 03/19/25 09:00 03/26/25 08:52 Tamsulosin Hcl 0.4 Mg Capsule PO 0.4 mg QAM ANGELA Administration Radiology Results: ITS Impressions Chest X-Ray 03/18/25 13:29 IMPRESSION: 1. No acute cardiopulmonary findings given portable technique. Consider PA and lateral films with deep inspiration. Labs Labs: Laboratory Results - last 24 hr 03/26/25 04:49 WBC 8.7 RBC 4.07 L Hgb 10.3 L Hct 35.8 L MCV 88.0 MCH 25.3 L MCHC 28.8 L RDW 17.2 H Plt Count 297 MPV 10.0 Sodium 129 L Potassium 4.0 Chloride 90 L Carbon Dioxide 35 H Anion Gap 4 BUN 44 H Creatinine 2.27 H Estim Creat Clear Calc 37 Estimated GFR 28 L Glucose 87 Calcium 9.1 Phosphorus 4.7 H Magnesium 2.5 H Total Bilirubin 0.5 AST 23 ALT 8 Alkaline Phosphatase 57 Total Protein 5.6 L Albumin 3.1 L Quality VTE Prophylaxis VTE prophylaxis: pharmacologic ordered
--- NOTE | 2025-03-26 14:19 | PCPTNOTE ---
Attempted to see patient for PT, however patient just got done working with OT and wanted a rest break. Patient declined PT at this time.
[2025-03-26 16:00] VITALS: BP 112/59; PULSE 65; RESP 15; TEMP 35.8; O2SAT 99
[2025-03-26 21:04] VITALS: PULSE 63; O2SAT 96
[2025-03-26 21:26] VITALS: BP 125/60; PULSE 68; RESP 17; TEMP 36.8; O2SAT 93
[2025-03-27 05:00] VITALS: PULSE 68; O2SAT 96
[2025-03-27] MEDS: GABAPENTIN 300 MG CAPSULE PO ×3 (05:43→20:59)
[2025-03-27] MEDS: LEVOTHYROXINE SODIUM 100 MCG TABLET 200 MCG PO (05:43)
[2025-03-27] MEDS: ACETAMINOPHEN 500 MG TABLET PO ×2 (05:46→20:46)
[2025-03-27 05:47] VITALS: BP 120/57; PULSE 60; RESP 18; TEMP 36.4; O2SAT 100
[2025-03-27] MEDS: FERROUS SULFATE 325 MG TABLET PO ×2 (09:31→17:21)
[2025-03-27] MEDS: TAMSULOSIN HCL 0.4 MG CAPSULE PO (09:31)
[2025-03-27] MEDS: APIXABAN 5 MG TABLET PO ×2 (09:31→20:45)
[2025-03-27] MEDS: acetaZOLAMIDE TAB 250 MG TABLET PO (09:32)
[2025-03-27] MEDS: DOCUSATE SODIUM 100 MG CAPSULE PO ×2 (09:32→20:46)
[2025-03-27] MEDS: SPIRONOLACTONE 25 MG TABLET PO (09:32)
[2025-03-27] MEDS: BUMETANIDE INJ 1 MG/4 ML VIAL 2 MG IV PUSH (09:32)
[2025-03-27] MEDS: METOPROLOL TARTRATE 50 MG TAB PO ×2 (09:32→20:50)
[2025-03-27] MEDS: EUCERIN CREAM 120 GM JAR 1 APPLIC TOPICAL (09:32)
[2025-03-27] MEDS: MIDODRINE HCL 2.5 MG TABLET 5 MG PO ×3 (09:32→17:21)
[2025-03-27] MEDS: EMPAGLIFLOZIN 10 MG TABLET PO (09:32)
[2025-03-27] MEDS: POTASSIUM CHLORIDE 20 MEQ ER TABLET PO ×3 (09:32→17:21)
[2025-03-27] MEDS: FAMOTIDINE 20 MG TABLET PO ×2 (09:32→20:46)
[2025-03-27 10:37] LABS: Hematocrit 39.8 % (42.0-52.0); Hemoglobin 11.3 g/dL (14.0-18.0); Mean Corpuscular HGB Conc 28.4 g/dl (32-36); Mean Corpuscular Hemoglobin 25.2 pg (26-34); Mean Corpuscular Volume 88.6 fl (80-100); Platelet Count Result 311 k/mm3 (150-375); Red Blood Count 4.49 M/mm3 (4.6-6.20); White Blood Count 8.8 K/mm3 (4.5-10.0)
[2025-03-27 10:45] LABS: Albumin Level 3.7 g/dL (3.5-5.1); Anion Gap 7 mmol/L (4-12); Blood Urea Nitrogen 46 mg/dL (9-20); Calcium 9.6 mg/dL (8.4-10.2); Carbon Dioxide 33 mmol/L (22-30); Chloride 91 mmol/L (98-107); Estimated CRCL calculation 35 ml/min; Estimated Glomerular Filt Rate 27; Glucose 110 mg/dL (65-110); Potassium 3.9 mmol/L (3.4-5.0); Sodium 131 mmol/L (137-145)
--- NOTE | 2025-03-27 11:30 | P.PNNP_ITS ---
Progress Note: A&P Assessment and Plan (1) Acute kidney injury: Code(s): N17.9 - Acute kidney failure, unspecified Status: Resolved Assessment and Plan: * relatively stable * as noted by labs on admission (creatinine of 2.84mg/dl) * evaluation to date noted: * urine electrolytes (FeUrea) are prerenal * mild proteinuria * CPK low * UA suggestive of infection - but urine culture negative * based on evidence to date, likely secondary to significant renal venous hypertension - his improvement in renal function/creatinine with diuresis supports this etiology * along with swelling in his LEs and scrotum, he likely has developed swelling in his kidneys * this is further complicated by soft BPs leading to chronic prerenal azotemia (a variation of cardiorenal syndrome) * on midodrine for BP support with ongoing diuresis * note rise in creatinine in the last 24 - 48 hours... 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 the 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 for JENA on CKD in association with volume/fluid overload unresponsive to diuretic therapy (3) Anasarca: Code(s): R60.1 - Generalized edema Status: Acute Assessment and Plan: * chronic issue with recurrent exacerbations as noted by his numerous acute hospitalizations * this is felt to be secondary to his severe right-sided heart failure with some possible contributions from his AMELIA * continue diuresis (IV bumex, metolazone, acetazolamide, and spironolactone) * almost 28L negative since admission * given rise in creatinine in association with hand/thigh cramping (a symptom he has had with overdiuresis), will transition to oral bumex and reduce his metolazone dosage (4) Acute on chronic diastolic heart failure: Code(s): I50.33 - Acute on chronic diastolic (congestive) heart failure Status: Acute Assessment and Plan: * as noted by symptoms of shortness of breath and #3 * recent Echo (03/20) noted: * left ventricular systolic function is normal, estimated at 55 - 60% * left ventricular diastolic function is abnormal * mild tricuspid valve regurgitation * no pulmonary hypertension, estimated pulmonary arterial systolic pressure is 30 mmHg * Cardiology recommendations noted * continue diuresis but transition to oral diuretics * on midodrine for BP support with diuresis * continue Jardiance * follow I/Os, daily weights, and respiratory status (5) Anemia: Qualifiers: Anemia type: due to chronic kidney disease Chronic kidney disease stage: stage 3 (moderate) Chronic kidney disease stage 3 subtype: unspecified whether 3a or 3b Qualified Code(s): N18.30 - Chronic kidney disease, stage 3 unspecified; D63.1 - Anemia in chronic kidney disease Code(s): D64.9 - Anemia, unspecified Status: Acute Assessment and Plan: * partly due to CKD * anemia studies with iron deficiency * H/H relatively stable * consider IV venofer while hospitalized (6) Hyponatremia: Code(s): E87.1 - Hypo-osmolality and hyponatremia Status: Chronic Assessment and Plan: * chronic issue at baseline * likely due to chronic CHF and necessity of diuretic therapy * follow trend of sodium (7) Atrial fibrillation: Qualifiers: Atrial fibrillation type: longstanding persistent Qualified Code(s): I 48.11 - Longstanding persistent atrial fibrillation Code(s): I48.91 - Unspecified atrial fibrillation Status: Chronic Assessment and Plan: * rate control strategy * on metoprolol * on eliquis (8) AMELIA (obstructive sleep apnea): Code(s): G47.33 - Obstructive sleep apnea (adult) (pediatric) Status: Chronic Assessment and Plan: * continue CPAP at night and with rest Will continue to follow. L Subjective Date/time seen: 03/27/25 11:30 Interval history: Follow-up for acute kidney injury/acute renal failure on chronic kidney disease. Appears to be feeling reasonably when seen although is reporting some cramping in his hands and thigh today and late yesterday afternoon; ongoing diuresis noted with mild rise in creatinine in the last 24 - 48 hours; no other acute complaints voiced at this time. Exam 2 Narrative: General: large but WD/WN male in NAD Heart: normal S1 and S2; no rub Lungs: clear but decreased at bases Abdomen: obese but soft, nontender, nondistended, positive bowel sounds Extremities: no cyanosis or clubbing; 1+ edema; s/p right BKA Skin: chronic changes present in LLE Objective Data Vital Signs Vital Signs: Vital Signs Temp Pulse Resp BP Pulse Ox O2 Del Method 03/27/25 05:47 97.5 F L 60 18 120/57 L 100 03/27/25 05:00 68 96 Autopap 03/26/25 21:26 98.2 F 68 17 125/60 93 03/26/25 21:04 63 96 Autopap 03/26/25 20:00 Room Air 03/26/25 16:00 96.5 F L 65 15 112/59 L 99 Intake/Output Intake/Output: Intake & Output 03/24/25 03/25/25 03/26/25 03/27/25 23:59 23:59 23:59 23:59 Intake Total 598 1840 1510 680 Output Total 6025 4625 5600 1000 Balance -5427 -2785 -4090 -320 Meds/Results Medications: Active Medications Generic Name Dose Route Start Last Admin Trade Name Freq PRN Reason Stop Dose Admin Acetaminophen 500 mg 03/18/25 22:39 03/27/25 05:46 Acetaminophen 500 Mg Tablet PO 500 mg Q6H PRN Administration fever or pain Acetazolamide 250 mg 03/19/25 08:00 03/27/25 09:32 Acetazolamide Tab 250 Mg Tablet PO 250 mg DAILY@0800 ANGELA Administration Allopurinol 100 mg 03/19/25 08:00 03/27/25 09:32 Allopurinol 100 Mg Tablet PO 100 mg DAILY@0800 [facility] Administration Apixaban 5 mg 03/18/25 22:45 03/27/25 09:31 Apixaban 5 Mg Tablet PO 5 mg Q12HR ANGELA Administration Bumetanide 2 mg 03/28/25 09:00 Bumetanide 1 Mg Tablet PO BID ANGELA Calcitriol 0.25 mcg 03/19/25 09:00 03/26/25 08:58 Calcitriol 0.25 Mcg Capsule PO 0.25 mcg MoWeFr [facility] Administration Docusate Sodium 100 mg 03/19/25 09:00 03/27/25 09:32 Docusate Sodium 100 Mg Capsule PO 100 mg Q12HR ANGELA Administration Empagliflozin 10 mg 03/19/25 10:35 03/27/25 09:32 Empagliflozin 10 Mg Tablet PO 10 mg DAILY ANGELA Administration Ergocalciferol 1,250 mcg 03/22/25 09:00 03/22/25 09:05 Ergocalciferol (Vitamin D2) 1,250 Mcg (50,000 Units) Capsule PO 1,250 mcg WEEKLY ANGELA Administration Ergocalciferol 1,250 mcg 03/22/25 09:00 03/22/25 12:54 Ergocalciferol (Vitamin D2) 1,250 Mcg (50,000 Units) Capsule PO 1,250 mcg WEEKLY ANGELA Administration Famotidine 20 mg 03/20/25 21:00 03/27/25 09:32 Famotidine 20 Mg Tablet PO 20 mg Q12HR ANGELA Administration Ferrous Sulfate 325 mg 03/19/25 09:00 03/27/25 09:31 Ferrous Sulfate 325 Mg Tablet PO 325 mg BID ANGELA Administration Fluticasone Propionate 1 spray 03/18/25 22:39 Fluticasone Propionate 0.05% Na Spr 16 Gm Btl (*Bkc) NASAL DAILY PRN Congestion Gabapentin 300 mg 03/20/25 14:00 03/27/25 14:11 Gabapentin 300 Mg Capsule PO 300 mg Q8HR ANGELA Administration Hyoscyamine 0.0625 mg 03/19/25 13:48 03/20/25 09:56 Hyoscyamine Sulfate 0.0625 Mg Tablet PO 0.0625 mg Q4H PRN Administration Bladder Spasm Levofloxacin 250 mg 03/25/25 11:00 03/27/25 11:23 Levofloxacin 250 Mg Tablet PO 250 mg Q24H ANGELA Administration Levothyroxine Sodium 200 mcg 03/19/25 06:30 03/27/25 05:43 Levothyroxine Sodium 100 Mcg Tablet PO 200 mcg DAILY@0630 ANGELA Administration Metolazone 5 mg 03/21/25 09:00 03/27/25 09:31 Metolazone 5 Mg Tablet PO 5 mg QAM ANGELA Administration Metoprolol Tartrate 50 mg 03/19/25 09:00 03/27/25 09:32 Metoprolol Tartrate 50 Mg Tab PO 50 mg Q12HR ANGELA Administration Midodrine 5 mg 03/20/25 13:00 03/27/25 12:35 Midodrine Hcl 2.5 Mg Tablet PO 5 mg TID ANGELA Administration Multi-Ingred Cream/Lotion/Oil/Oint 1 applic 03/19/25 09:00 03/27/25 09:32 Eucerin Cream 120 Gm Jar TOPICAL 1 applic DAILY ANGELA Administration Oxybutynin Chloride 5 mg 03/19/25 12:30 03/27/25 09:43 Oxybutynin Chloride 5 Mg Tablet PO 5 mg TID PRN Administration Bladder Spasm Polyethylene Glycol 17 gm 03/20/25 09:00 03/27/25 09:31 Polyethylene Glycol 3350 17 Gm Powd.Pack PO 17 gm DAILY ANGELA Administration Potassium Chloride 20 meq 03/19/25 08:00 03/27/25 11:23 Potassium Chloride 20 Meq Er Tablet PO 20 meq TIDWM ANGELA Administration Spironolactone 25 mg 03/19/25 09:00 03/27/25 09:32 Spironolactone 25 Mg Tablet PO 25 mg DAILY ANGELA Administration Tamsulosin HCl 0.4 mg 03/19/25 09:00 03/27/25 09:31 Tamsulosin Hcl 0.4 Mg Capsule PO 0.4 mg QAM ANGELA Administration Radiology Results: ITS Impressions Chest X-Ray 03/18/25 13:29 IMPRESSION: 1. No acute cardiopulmonary findings given portable technique. Consider PA and lateral films with deep inspiration. Labs Labs: Laboratory Tests 03/27/25 10:13 03/27/25 10:13 Calcium 9.6 Phosphorus 4.8 H Albumin 3.7
--- NOTE | 2025-03-27 11:59 | PCPTNOTE ---
Patient refused, stated he is just too tired today and in too much pain. Nursing notified.
--- NOTE | 2025-03-27 13:39 | PM.PNCARD ---
Progress Note: A&P Assessment and Plan (1) Chronic congestive heart failure: Qualifiers: Heart failure type: combined systolic and diastolic Qualified Code(s): I50.42 - Chronic combined systolic (congestive) and diastolic (congestive) heart failure Code(s): I50.9 - Heart failure, unspecified Status: Chronic Plan 75-year-old man with chronic diastolic heart failure. He appears to be at a state of optimization of his volume. I am going to go ahead and transition him to a equivalent dosage of oral Bumex. Certainly his nephrology leasing consultant can adjust the diuretic dosages as well. Hopefully discharge in the next 48 hours or so was reasonable Anirudh Wise MD [facility] Subjective Date/time seen: Date of service: 03/27/25 13:39 Interval history: 03/24/25-Patient is sitting up in bed. He states edema feels improved. No c/o any chest pain or shortness of breath. 03/25/2025: Patient is comfortable resting with CPAP in place. He took the CPAP off for conversation he is happy that his IV diuretic regimen is improving his edema including his scrotal edema. 03/27/2025: Patient continues to be comfortable offers no new complaints. Primary team and nephrology notes reviewed. He continues to receive intravenous Bumex twice daily. Exam Narrative: General: Alert oriented x3, no acute distress Neck: Supple, JVD + Chest: Bilateral clear to auscultation, no rales or rhonchi Cardiac: S1, S2 +, regular rate, regular rhythm, no murmurs or rubs Extremities: R BKA with stump swelling, LLE swelling 2+, no skin rash Neurologic: Alert and oriented x3, no focal neurological deficits Const: General: comfortable and no acute distress HENMT: Mouth: Yes moist mucous membranes Eyes: EOM: EOMs intact bilaterally Neck: Neck: supple and no JVD Resp: Effort & Inspection: normal respiratory effort Auscultation: clear to auscultation bilaterally and diminished lung sounds (in bases ) Cardio: Rate: regular rate Rhythm: regular rhythm Heart sounds: no gallops, no murmurs and no rubs Extrem: General: edema and pedal edema Other: Left lower extremity is mildly edematous but soft Objective Data Vital Signs Vital Signs: Vital Signs - 24 hr 03/26/25 16:00 03/26/25 20:00 03/26/25 21:04 Temperature 35.8 C L Pulse Rate 65 63 Respiratory Rate 15 Blood Pressure 112/59 L Pulse Oximetry 99 96 Oxygen Delivery Room Air Autopap 03/26/25 21:26 03/27/25 05:00 03/27/25 05:47 Temperature 36.8 C 36.4 C L Pulse Rate 68 68 60 Respiratory Rate 17 18 Blood Pressure 125/60 120/57 L Pulse Oximetry 93 96 100 Oxygen Delivery Autopap Intake/Output Intake/Output: Intake & Output 03/24/25 03/25/25 03/26/25 03/27/25 23:59 23:59 23:59 23:59 Intake Total 598 1840 1510 680 Output Total 6037 4643 5600 1000 [facility] -5427 -2785 -4090 -320 Meds/Results Medications: Active Medications Generic Name Dose Route Start Last Admin Trade Name Freq PRN Reason Stop Dose Admin Acetaminophen 500 mg 03/18/25 22:39 03/27/25 05:46 Acetaminophen 500 Mg Tablet PO 500 mg Q6H PRN Administration fever or pain Acetazolamide 250 mg 03/19/25 08:00 03/27/25 09:32 Acetazolamide Tab 250 Mg Tablet PO 250 mg DAILY@0800 ANGELA Administration Allopurinol 100 mg 03/19/25 08:00 03/27/25 09:32 Allopurinol 100 Mg Tablet PO 100 mg DAILY@0800 ANGELA Administration Apixaban 5 mg 03/18/25 22:45 03/27/25 09:31 Apixaban 5 Mg Tablet PO 5 mg Q12HR ANGELA Administration Bumetanide 2 mg 03/20/25 10:55 03/27/25 09:32 Bumetanide Inj 1 Mg/4 Ml Vial IV PUSH 2 mg BID ANGELA Administration Calcitriol 0.25 mcg 03/19/25 09:00 03/26/25 08:58 Calcitriol 0.25 Mcg Capsule PO 0.25 mcg MoWeFr ANGELA Administration Docusate Sodium 100 mg 03/19/25 09:00 03/27/25 09:32 Docusate Sodium 100 Mg Capsule PO 100 mg Q12HR ANGELA Administration Empagliflozin 10 mg 03/19/25 10:35 03/27/25 09:32 Empagliflozin 10 Mg Tablet PO 10 mg DAILY ANGELA Administration Ergocalciferol 1,250 mcg 03/22/25 09:00 03/22/25 09:05 Ergocalciferol (Vitamin D2) 1,250 Mcg (50,000 Units) Capsule PO 1,250 mcg WEEKLY ANGELA Administration Ergocalciferol 1,250 mcg 03/22/25 09:00 03/22/25 12:54 Ergocalciferol (Vitamin D2) 1,250 Mcg (50,000 Units) Capsule PO 1,250 mcg WEEKLY ANGELA Administration Famotidine 20 mg 03/20/25 21:00 03/27/25 09:32 Famotidine 20 Mg Tablet PO 20 mg Q12HR ANGELA Administration Ferrous Sulfate 325 mg 03/19/25 09:00 03/27/25 09:31 Ferrous Sulfate 325 Mg Tablet PO 325 mg BID ANGELA Administration Fluticasone Propionate 1 spray 03/18/25 22:39 Fluticasone Propionate 0.05% Na Spr 16 Gm Btl (*Bkc) NASAL DAILY PRN Congestion Gabapentin 300 mg 03/20/25 14:00 03/27/25 05:43 Gabapentin 300 Mg Capsule PO 300 mg Q8HR ANGELA Administration Hyoscyamine 0.0625 mg 03/19/25 13:48 03/20/25 09:56 Hyoscyamine Sulfate 0.0625 Mg Tablet PO 0.0625 mg Q4H PRN Administration Bladder Spasm Levofloxacin 250 mg 03/25/25 11:00 03/27/25 11:23 Levofloxacin 250 Mg Tablet PO 250 mg Q24H ANGELA Administration Levothyroxine Sodium 200 mcg 03/19/25 06:30 03/27/25 05:43 Levothyroxine Sodium 100 Mcg Tablet PO 200 mcg DAILY@0630 ANGELA Administration Metolazone 5 mg 03/21/25 09:00 03/27/25 09:31 Metolazone 5 Mg Tablet PO 5 mg QAM ANGELA Administration Metoprolol Tartrate 50 mg 03/19/25 09:00 03/27/25 09:32 Metoprolol Tartrate 50 Mg Tab PO 50 mg Q12HR ANGELA Administration Midodrine 5 mg 03/20/25 13:00 03/27/25 12:35 Midodrine Hcl 2.5 Mg Tablet PO 5 mg TID ANGELA Administration Multi-Ingred Cream/Lotion/Oil/Oint 1 applic 03/19/25 09:00 03/27/25 09:32 Eucerin Cream 120 Gm Jar TOPICAL 1 applic DAILY ANGELA Administration Oxybutynin Chloride 5 mg 03/19/25 12:30 03/27/25 09:43 Oxybutynin Chloride 5 Mg Tablet PO 5 mg TID PRN Administration Bladder Spasm Polyethylene Glycol 17 gm 03/20/25 09:00 03/27/25 09:31 Polyethylene Glycol 3350 17 Gm Powd.Pack PO 17 gm DAILY ANGELA Administration Potassium Chloride 20 meq 03/19/25 08:00 03/27/25 11:23 Potassium Chloride 20 Meq Er Tablet PO 20 meq TIDWM ANGELA Administration Spironolactone 25 mg 03/19/25 09:00 03/27/25 09:32 Spironolactone 25 Mg Tablet PO 25 mg DAILY ANGELA Administration Tamsulosin HCl 0.4 mg 03/19/25 09:00 03/27/25 09:31 Tamsulosin Hcl 0.4 Mg Capsule PO 0.4 mg QAM ANGELA Administration Radiology Results: ITS Impressions Chest X-Ray 03/18/25 13:29 IMPRESSION: 1. No acute cardiopulmonary findings given portable technique. Consider PA and lateral films with deep inspiration. Labs Labs: Laboratory Results - last 24 hr 03/27/25 10:13 WBC 8.8 RBC 4.49 L Hgb 11.3 L Hct 39.8 L MCV 88.6 MCH 25.2 L MCHC 28.4 L RDW 17.7 H Plt Count 311 MPV 10.5 H Sodium 131 L Potassium 3.9 Chloride 91 L Carbon Dioxide 33 H Anion Gap 7 BUN 46 H Creatinine 2.35 H Estim Creat Clear Calc 35 Estimated GFR 27 L Glucose 110 Calcium 9.6 Phosphorus 4.8 H Albumin 3.7
[2025-03-27 14:00] VITALS: BP 115/59; PULSE 65; RESP 18; TEMP 36.6; O2SAT 97
--- NOTE | 2025-03-27 15:25 | P.PNIM_ITS ---
Assessment and Plan Assessment and Plan (1) Acute on chronic diastolic heart failure: Code(s): I50.33 - Acute on chronic diastolic (congestive) heart failure Status: Acute Assessment and Plan: -echo on 12/17/2024 was read as left ventricular systolic function is normal estimated at 65-70, left ventricular diastolic function is abnormal. -patient 2+ the 3+ pitting edema to left lower extremity. -IV Bumex has been ordered. The patient got a dose of Lasix in the emergency room. Monitor renal function closely. Continue with potassium supplement as well. -continue with Aldactone. -continue with Zaroxolyn -cardiology consulted: Appreciate nephrology input. Midodrine was added to help with BP Decrease Bumex to 1mg IV BID Continue metolazone Continue spironolactone Continue metoprolol with holding parameters (hold for SBP<110mm Hg) Continue empagliflozin Continue Eliquis for anticoagulation for A fib/flutter Check weight, ins and outs, and renal function daily Check and replace electrolytes to keep K>4 and Mg>2 Monitor on telemetry 03/22 - cardiology, DR Kirk was not sure why pt on minoxidil- so i was held- will let cardiology decide if pt needs to be on it or not -i/o reviewed, he is diuresing well. 03/23 - cr/bun 2. bumex 2gm iv iv push bid, metolazone 5 mg -continue Jardiance 10 mg p.o. daily, spironolactone 25 mg p.o. daily -on azetazolamide 250mg PO daily -require midodrine 5 mg p.o. t.i.d. while being diuresed 03/24 Getting slightly better today. Continue diuresis. 03/25/2025 Gradually improving, will contnue current treatment, nephrology on board. 03/26/2025: Weight coming down. On Bumex 2 mg IV b.i.d. metolazone spironolactone. 03/27/2025 Bumex changed to oral (2) Cardiac enzymes elevated: Code(s): R74.8 - Abnormal levels of other serum enzymes Status: Acute Assessment and Plan: -cardiology has been consulted. -troponin 0.057, 0.061. Repeat troponin in the a.m.. -the patient is not short of breath or having any chest pain. -this could be related to his CHF and are chronic renal failure. (3) UTI (urinary tract infection): Code(s): N39.0 - Urinary tract infection, site not specified Status: Acute Assessment and Plan: -he was started on Rocephin. Swith to Po antibiotics to levofloxacin 250 mg every 24 hour (4) Atrial fibrillation: Qualifiers: Atrial fibrillation type: longstanding persistent Qualified Code(s): I48.11 - Longstanding persistent atrial fibrillation Code(s): I48.91 - Unspecified atrial fibrillation Status: Chronic Assessment and Plan: -the patient is currently in sinus rhythm. -continue with Eliquis -continue with metoprolol -rate is controlled at this time. - bleeding precautions (5) Venous stasis dermatitis: Code(s): I87.2 - Venous insufficiency (chronic) (peripheral) Status: Acute Assessment and Plan: -continue with lanolin oil patient has a right [id number] amputation that is fairly new from a couple months ago. (6) Peripheral vascular disease: Code(s): I73.9 - Peripheral vascular disease, unspecified Status: Acute Assessment and Plan: -the patient is on apixaban. (7) Dyslipidemia: Code(s): E78.5 - Hyperlipidemia, unspecified Status: Acute Assessment and Plan: -continue with home medications. The patient does not appear to be on any statins for unknown reasons. (8) Hypothyroidism: Qualifiers: Hypothyroidism type: acquired Qualified Code(s): E03.9 - Hypothyroidism, unspecified Code(s): E03.9 - Hypothyroidism, unspecified Status: Chronic Assessment and Plan: -continue with levothyroxine (9) CKD (chronic kidney disease) stage 3, GFR 30-59 ml/min: Qualifiers: Chronic kidney disease stage 3 subtype: stage 3b (GFR 30-44) Qualified Code(s): N18.32 - Chronic kidney disease, stage 3b Code(s): N18.3 - Chronic kidney disease, stage 3 (moderate) Status: Acute Assessment and Plan: -creatinine 2.84 which is slightly above his baseline of 1.9-2.8. His GFR is 22 which is slightly lower than his baseline of 31-34 -monitor BMP daily. -may consider Nephrology consult if labs worsen with diuretics. -nephrology consulted: at this point will give him midodrine to get the blood pressure back up, and continue diuretics. I will increase the metolazone to5mg once a day, change his bumetanide to2mg IV twice a day, and continue the spironolactone and acetazolamide 03/24 continue diuresing monitor daily labs 03/25- continue diuresing, midodrine to help wit BP slowly improving but not at his baseline yet Dr Al is fooliowng (10) Anemia of chronic disease: Code(s): D63.8 - Anemia in other chronic diseases classified elsewhere Status: Acute Assessment and Plan: -the patient is slightly above his baseline. This appears to be stable. Most likely secondary to his chronic renal failure. - monitor (11) AMELIA (obstructive sleep apnea): Code(s): G47.33 - Obstructive sleep apnea (adult) (pediatric) Status: Chronic Assessment and Plan: The patient brought his own CPAP machine, he may continue to use this . (12) Gout: Qualifiers: Gout site: multiple sites Gout etiology: unspecified cause Chronicity: chronic Qualified Code(s): M1A.09X0 - Idiopathic chronic gout, multiple sites, without tophus (tophi) Code(s): M10.9 - Gout, unspecified Status: Acute Assessment and Plan: Stable on current meds (13) Rosacea: Code(s): L71.9 - Rosacea, unspecified Status: Acute Assessment and Plan: Stable on current meds Plan The patient has chronic hyponatremia. Most likely secondary to his CHF with 3rd spacing. Subjective Date/time seen: 03/27/25 15:25 Interval history: No overnight events. Complains of some cramping. Diuresing well. Weight is down. Labs reviewed. Review of Systems Constitutional: Constitutional: Reports as per HPI and Reports no additional constitutional complaints Eyes: Eyes: Reports as per HPI and Reports no additional eye complaints ENT: Reports system reviewed and no additional complaints, except as documented and Reports Normal hearing present Cardiovascular: Cardiovascular: Reports no additional cardiovascular complaints Respiratory: Respiratory: Reports as per HPI and Reports no additional respiratory complaints Gastrointestinal: Gastrointestinal: Reports as per HPI and Reports no additional gastrointestinal complaints Musculoskeletal: Musculoskeletal: Reports no additional musculoskeletal complaints Integumentary/Breasts: Skin/Breast: Reports system reviewed and no additional complaints, except as docu Neurologic: Reports system reviewed and no additional complaints, except as documented and Reports Normal hearing present Psychiatric: Psychiatric: Reports no additional psychiatric complaints and Reports as per HPI Hematologic/Lymphatic: Hematologic/Lymphatic: Reports no additional hematologic/lymphatic complaints Allergic/Immunologic: Allergic/Immunologic: Reports no additional allergic/immunologic complaints Exam Const: General: cooperative, comfortable, no acute distress, well developed, awake, Physically active, average body habitus and well nourished Nutritional Appearance: average body habitus and well nourished Orientation/consciousness: oriented to person, oriented to place, oriented to time and patient oriented x3 Limitations: no limitations HENMT: Head: normal to inspection, No palpable skull fracture present, normocephalic, atraumatic and abrasion Ears: hearing grossly normal bilaterally Eyes: General: appearance normal, both eyes and all related structures Alignment and Position: alignment normal Periorbital: periorbital findings normal Eyelids: eyelids normal Neck: Neck: normal visual inspection, full ROM and no lymphadenopathy Chest: Chest palpation & inspection: normal inspection of the chest Resp: Effort & Inspection: normal respiratory effort Auscultation: clear to auscultation bilaterally Cardio: Palpation: normal PMI Rate: regular rate Rhythm: regular rhythm Heart sounds: S1 normal heart sound present and S2 normal heart sound present GI: Inspection: normal to inspection Auscultation: normal bowel sounds : General: Yes no CVA tenderness Back/Spine/Pelvis: Back: no CVA tenderness Cervical Spine: cervical ROM normal Skin: General skin exam: normal color Lesions: no lesions Rashes: no rashes Trauma: no lacerations or abrasions Wounds: no wounds Hair: normal Nails: normal Neuro: General: oriented to person, oriented to place, oriented to time and patient oriented x3 Cranial nerves: Yes Normal hearing present Cognition (Neuro): normal cognition Speech: normal speech Extrem: General: normal to inspection and edema Right upper extremity: normal to inspection and shoulder/upper arm Left upper extremity: normal to inspection and shoulder/upper arm Psych: Appearance: grossly normal Mental Status: mental status grossly normal Speech and movement: Normal speech and movement present Affect: normal affect Attitude: cooperative Thought process: Normal thought process present Insight: Good insight present (Psych) Judgement: Good judgement present (Psych) Objective Data Vital Signs Vital Signs: Vital Signs - 24 hr 03/26/25 16:00 03/26/25 20:00 03/26/25 21:04 Temperature 96.5 F L Pulse Rate 65 63 Respiratory Rate 15 Blood Pressure 112/59 L Pulse Oximetry 99 96 Oxygen Delivery Room Air Autopap 03/26/25 21:26 03/27/25 05:00 03/27/25 05:47 Temperature 98.2 F 97.5 F L Pulse Rate 68 68 60 Respiratory Rate 17 18 Blood Pressure 125/60 120/57 L Pulse Oximetry 93 96 100 Oxygen Delivery Autopap 03/27/25 14:00 Temperature 97.8 F Pulse Rate 65 Respiratory Rate 18 Blood Pressure 115/59 L Pulse Oximetry 97 Oxygen Delivery Intake/Output Intake/Output: Intake & Output 03/24/25 03/25/25 03/26/25 03/27/25 23:59 23:59 23:59 23:59 Intake Total 598 1840 1510 680 Output Total 6025 4625 5600 1000 Balance -5427 -2785 -4090 -320 Meds/Results Medications: Active Medications Generic Name Dose Route Start Last Admin Trade Name Freq PRN Reason Stop Dose Admin Acetaminophen 500 mg 03/18/25 22:39 03/27/25 05:46 Acetaminophen 500 Mg Tablet PO 500 mg Q6H PRN Administration fever or pain Acetazolamide 250 mg 03/19/25 08:00 03/27/25 09:32 Acetazolamide Tab 250 Mg Tablet PO 250 mg DAILY@0800 ANGELA Administration Allopurinol 100 mg 03/19/25 08:00 03/27/25 09:32 Allopurinol 100 Mg Tablet PO 100 mg DAILY@0800 ANGELA Administration Apixaban 5 mg 03/18/25 22:45 03/27/25 09:31 Apixaban 5 Mg Tablet PO 5 mg Q12HR ANGELA Administration Bumetanide 2 mg 03/27/25 18:00 Bumetanide 1 Mg Tablet PO Q12H [facility] Calcitriol 0.25 mcg 03/19/25 09:00 03/26/25 08:58 Calcitriol 0.25 Mcg Capsule PO 0.25 mcg MoWeFr ANGELA Administration Docusate Sodium 100 mg 03/19/25 09:00 03/27/25 09:32 Docusate Sodium 100 Mg Capsule PO 100 mg Q12HR ANGELA Administration Empagliflozin 10 mg 03/19/25 10:35 03/27/25 09:32 Empagliflozin 10 Mg Tablet PO 10 mg DAILY ANGELA Administration Ergocalciferol 1,250 mcg 03/22/25 09:00 03/22/25 09:05 Ergocalciferol (Vitamin D2) 1,250 Mcg (50,000 Units) Capsule PO 1,250 mcg WEEKLY ANGELA Administration Ergocalciferol 1,250 mcg 03/22/25 09:00 03/22/25 12:54 Ergocalciferol (Vitamin D2) 1,250 Mcg (50,000 Units) Capsule PO 1,250 mcg WEEKLY ANGELA Administration Famotidine 20 mg 03/20/25 21:00 03/27/25 09:32 Famotidine 20 Mg Tablet PO 20 mg Q12HR ANGELA Administration Ferrous Sulfate 325 mg 03/19/25 09:00 03/27/25 09:31 Ferrous Sulfate 325 Mg Tablet PO 325 mg BID ANGELA Administration Fluticasone Propionate 1 spray 03/18/25 22:39 Fluticasone Propionate 0.05% Na Spr 16 Gm Btl (*Bkc) NASAL DAILY PRN Congestion Gabapentin 300 mg 03/20/25 14:00 03/27/25 14:11 Gabapentin 300 Mg Capsule PO 300 mg Q8HR ANGELA Administration Hyoscyamine 0.0625 mg 03/19/25 13:48 03/20/25 09:56 Hyoscyamine Sulfate 0.0625 Mg Tablet PO 0.0625 mg Q4H PRN Administration Bladder Spasm Levofloxacin 250 mg 03/25/25 11:00 03/27/25 11:23 Levofloxacin 250 Mg Tablet PO 250 mg Q24H ANGELA Administration Levothyroxine Sodium 200 mcg 03/19/25 06:30 03/27/25 05:43 Levothyroxine Sodium 100 Mcg Tablet PO 200 mcg DAILY@0630 ANGELA Administration Metolazone 5 mg 03/21/25 09:00 03/27/25 09:31 Metolazone 5 Mg Tablet PO 5 mg QAM ANGELA Administration Metoprolol Tartrate 50 mg 03/19/25 09:00 03/27/25 09:32 Metoprolol Tartrate 50 Mg Tab PO 50 mg Q12HR ANGELA Administration Midodrine 5 mg 03/20/25 13:00 03/27/25 12:35 Midodrine Hcl 2.5 Mg Tablet PO 5 mg TID ANGELA Administration Multi-Ingred Cream/Lotion/Oil/Oint 1 applic 03/19/25 09:00 03/27/25 09:32 Eucerin Cream 120 Gm Jar TOPICAL 1 applic DAILY ANGELA Administration Oxybutynin Chloride 5 mg 03/19/25 12:30 03/27/25 09:43 Oxybutynin Chloride 5 Mg Tablet PO 5 mg TID PRN Administration Bladder Spasm Polyethylene Glycol 17 gm 03/20/25 09:00 03/27/25 09:31 Polyethylene Glycol 3350 17 Gm Powd.Pack PO 17 gm DAILY ANGELA Administration Potassium Chloride 20 meq 03/19/25 08:00 03/27/25 11:23 Potassium Chloride 20 Meq Er Tablet PO 20 meq TIDWM ANGELA Administration Spironolactone 25 mg 03/19/25 09:00 03/27/25 09:32 Spironolactone 25 Mg Tablet PO 25 mg DAILY ANGELA Administration Tamsulosin HCl 0.4 mg 03/19/25 09:00 03/27/25 09:31 Tamsulosin Hcl 0.4 Mg Capsule PO 0.4 mg QAM ANGELA Administration Radiology Results: ITS Impressions Chest X-Ray 03/18/25 13:29 IMPRESSION: 1. No acute cardiopulmonary findings given portable technique. Consider PA and lateral films with deep inspiration. Labs Labs: Laboratory Results - last 24 hr 03/27/25 10:13 WBC 8.8 RBC 4.49 L Hgb 11.3 L Hct 39.8 L MCV 88.6 MCH 25.2 L MCHC 28.4 L RDW 17.7 H Plt Count 311 MPV 10.5 H Sodium 131 L Potassium 3.9 Chloride 91 L Carbon Dioxide 33 H Anion Gap 7 BUN 46 H Creatinine 2.35 H Estim Creat Clear Calc 35 Estimated GFR 27 L Glucose 110 Calcium 9.6 Phosphorus 4.8 H Albumin 3.7 Quality VTE Prophylaxis VTE prophylaxis: pharmacologic ordered
[2025-03-27 19:00] VITALS: BP 108/58
[2025-03-27 21:45] VITALS: BP 121/54; PULSE 53; RESP 16; TEMP 36.6; O2SAT 96
[2025-03-28] VITALS (7 sets, daily range): BP systolic 105–123; BP diastolic 54–64; PULSE 54–77; RESP 16–18; TEMP 36.1–36.4; O2SAT 96–100
[2025-03-28] MEDS: LEVOTHYROXINE SODIUM 100 MCG TABLET 200 MCG PO (06:00)
[2025-03-28] MEDS: GABAPENTIN 300 MG CAPSULE PO ×3 (06:00→21:13)
[2025-03-28 06:30] LABS: Hematocrit 39.7 % (42.0-52.0); Hemoglobin 11.4 g/dL (14.0-18.0); Immature Granulocyte Percent A 1.0 % (0-0.5); Lymphocytes Absolute Auto 0.76 K/mm3 (0.9-3.2); Mean Corpuscular HGB Conc 28.7 g/dl (32-36); Mean Corpuscular Hemoglobin 25.7 pg (26-34); Mean Corpuscular Volume 89.6 fl (80-100); Nucleated Red Blood Cells Absolute Auto 0.000 K/mm3 (0.0-0.012); Nucleated Red Blood Cells Perc 0.0 % (0.0-0.2); Platelet Count Result 336 k/mm3 (150-375); Red Blood Count 4.43 M/mm3 (4.6-6.20); White Blood Count 9.5 K/mm3 (4.5-10.0)
[2025-03-28 06:51] LABS: Alanine Aminotransferase 10 U/L (6-50); Albumin Level 3.5 g/dL (3.5-5.1); Alkaline Phosphatase 62 U/L (38-126); Anion Gap 5 mmol/L (4-12); Aspartate Amino Transferase 21 U/L (17-59); Bilirubin,Total 0.5 mg/dL (0.2-1.3); Blood Urea Nitrogen 44 mg/dL (9-20); Calcium 9.4 mg/dL (8.4-10.2); Carbon Dioxide 36 mmol/L (22-30); Chloride 91 mmol/L (98-107); Estimated CRCL calculation 32 ml/min; Estimated Glomerular Filt Rate 25; Glucose 89 mg/dL (65-110); Magnesium 2.7 mg/dL (1.6-2.3); Potassium 3.8 mmol/L (3.4-5.0); Sodium 132 mmol/L (137-145); Total Protein 6.1 g/dL (6.3-8.2)
[2025-03-28 07:57] LABS: Anisocytosis 1+; Ovalocytes 1+
[2025-03-28 07:59] LABS: Polychromasia Occasional; Tear Drop Cells Occasional
[2025-03-28 08:00] LABS: Hypochromasia 1+; Schistocytes Rare
[2025-03-28] MEDS: METOPROLOL TARTRATE 50 MG TAB PO ×2 (09:28→21:13)
[2025-03-28] MEDS: EMPAGLIFLOZIN 10 MG TABLET PO (09:30)
[2025-03-28] MEDS: BUMETANIDE 1 MG TABLET PO (09:30)
[2025-03-28] MEDS: DOCUSATE SODIUM 100 MG CAPSULE PO ×2 (09:32→21:14)
[2025-03-28] MEDS: MIDODRINE HCL 2.5 MG TABLET 5 MG PO ×3 (09:32→16:58)
[2025-03-28] MEDS: APIXABAN 5 MG TABLET PO ×2 (09:32→21:14)
[2025-03-28] MEDS: FERROUS SULFATE 325 MG TABLET PO ×2 (09:32→16:58)
[2025-03-28] MEDS: POTASSIUM CHLORIDE 20 MEQ ER TABLET PO ×2 (09:32→13:21)
[2025-03-28] MEDS: acetaZOLAMIDE TAB 250 MG TABLET PO (09:32)
[2025-03-28] MEDS: FAMOTIDINE 20 MG TABLET PO ×2 (09:32→21:13)
[2025-03-28] MEDS: SPIRONOLACTONE 25 MG TABLET PO (09:33)
[2025-03-28] MEDS: TAMSULOSIN HCL 0.4 MG CAPSULE PO (09:33)
[2025-03-28] MEDS: EUCERIN CREAM 120 GM JAR 1 APPLIC TOPICAL (09:33)
[2025-03-28] MEDS: ACETAMINOPHEN 500 MG TABLET PO ×2 (09:40→21:16)
--- NOTE | 2025-03-28 11:56 | P.PNNP_ITS ---
Progress Note: A&P Assessment and Plan (1) Acute kidney injury: Code(s): N17.9 - Acute kidney failure, unspecified Status: Resolved Assessment and Plan: * slight worsening in the last 24 - 48 hours * as noted by labs on admission (creatinine of 2.84mg/dl) * evaluation to date noted: * urine electrolytes (FeUrea) are prerenal * mild proteinuria * CPK low * UA suggestive of infection - but urine culture negative * based on evidence to date, likely secondary to significant renal venous hypertension - his improvement in renal function/creatinine with diuresis supports this etiology * along with swelling in his LEs and scrotum, he likely has developed swelling in his kidneys * this is further complicated by soft BPs leading to chronic prerenal azotemia (a variation of cardiorenal syndrome) * on midodrine for BP support with ongoing diuresis * cutting back on diuretics due to rising creatinine...(see #3) * follow trend of repeat labs and UOP (2) Stage 3b chronic kidney disease: Code(s): N18.32 - Chronic kidney disease, stage 3b Status: Chronic Assessment and Plan: * baseline creatinine runs ~ 1.7 - 2.3mg/dl in the last year or so * however, has been as low as 1.6mg/dl and as high as 2.7mg/dl in association with acute hospitalizations * this causes him to fluctuate between CKD stage 3b and stage 4 * secondary to hypertensive nephrosclerosis, vascular disease, as well as the necessity of chronic diuretic therapy to maintain his volume status along age- related change * has required acute [employer]/dialysis x 2 in the past for JENA on CKD in association with volume/fluid overload unresponsive to diuretic therapy (3) Anasarca: Code(s): R60.1 - Generalized edema Status: Acute Assessment and Plan: * chronic issue with recurrent exacerbations as noted by his numerous acute hospitalizations * this is felt to be secondary to his severe right-sided heart failure with some possible contributions from his AMELIA * continue diuresis (IV bumex, metolazone, acetazolamide, and spironolactone) * almost 30L negative since admission * given rise in creatinine in association with hand/thigh cramping (a symptom he has had with overdiuresis), will transition to oral bumex and hold his metolazone (4) Acute on chronic diastolic heart failure: Code(s): I50.33 - Acute on chronic diastolic (congestive) heart failure Status: Acute Assessment and Plan: * as noted by symptoms of shortness of breath and #3 * recent Echo (03/20) noted: * left ventricular systolic function is normal, estimated at 55 - 60% * left ventricular diastolic function is abnormal * mild tricuspid valve regurgitation * no pulmonary hypertension, estimated pulmonary arterial systolic pressure is 30 mmHg * Cardiology recommendations noted * continue diuresis but transition to oral diuretics with further medication changes noted * on midodrine for BP support with diuresis * continue Jardiance * follow I/Os, daily weights, and respiratory status (5) Anemia: Qualifiers: Anemia type: due to chronic kidney disease Chronic kidney disease stage: stage 3 (moderate) Chronic kidney disease stage 3 subtype: unspecified whether 3a or 3b Qualified Code(s): N18.30 - Chronic kidney disease, stage 3 unspecified; D63.1 - Anemia in chronic kidney disease Code(s): D64.9 - Anemia, unspecified Status: Acute Assessment and Plan: * partly due to CKD * anemia studies with iron deficiency * H/H relatively stable if not improved (6) Hyponatremia: Code(s): E87.1 - Hypo-osmolality and hyponatremia Status: Chronic Assessment and Plan: * chronic issue at baseline * likely due to chronic CHF and necessity of diuretic therapy * follow trend of sodium (7) Atrial fibrillation: Qualifiers: Atrial fibrillation type: longstanding persistent Qualified Code(s): I 48.11 - Longstanding persistent atrial fibrillation Code(s): I48.91 - Unspecified atrial fibrillation Status: Chronic Assessment and Plan: * rate control strategy * on metoprolol * on eliquis (8) AMELIA (obstructive sleep apnea): Code(s): G47.33 - Obstructive sleep apnea (adult) (pediatric) Status: Chronic Assessment and Plan: * continue CPAP at night and with rest Will continue to follow. L Subjective Date/time seen: 03/28/25 11:56 Interval history: Follow-up for acute kidney injury/acute renal failure on chronic kidney disease. No acute complaints voiced at my visit aside from ongoing cramping in his hands and thighs; renal function/creatinine slightly worse by AM labs but diuretic therapy was just reduced yesterday; continues to make good urine output in general; however, reports weakness and fatigue as he has not really been out of bed since admission. Exam 2 Narrative: General: large but WD/WN male in NAD Heart: normal S1 and S2; no rub Lungs: clear but decreased at bases Abdomen: obese but soft, nontender, nondistended, positive bowel sounds Extremities: no cyanosis or clubbing; 1+ edema; s/p right BKA Skin: chronic changes apparent in LLE Objective Data Vital Signs Vital Signs: Vital Signs Temp Pulse Resp BP Pulse Ox O2 Del Method 03/28/25 09:30 66 123/64 03/28/25 09:30 Room Air 03/28/25 09:28 66 03/28/25 06:00 97.4 F L 54 L 16 111/56 L 100 03/27/25 21:45 97.8 F 53 L 16 121/54 L 96 03/27/25 20:00 Room Air 03/27/25 19:00 108/58 L Intake/Output Intake/Output: Intake & Output 03/25/25 03/26/25 03/27/25 03/28/25 23:59 23:59 23:59 23:59 Intake Total 1840 1510 920 610 Output Total 4625 5600 3300 1150 Balance -2785 -4090 -2380 -540 Meds/Results Medications: Active Medications Generic Name Dose Route Start Last Admin Trade Name Marcosq PRN Reason Stop Dose Admin Acetaminophen 500 mg 03/18/25 22:39 03/28/25 09:40 Acetaminophen 500 Mg Tablet PO 500 mg Q6H PRN Administration fever or pain Acetazolamide 250 mg 03/19/25 08:00 03/28/25 09:32 Acetazolamide Tab 250 Mg Tablet PO 250 mg DAILY@0800 ANGELA Administration Allopurinol 100 mg 03/19/25 08:00 03/28/25 09:30 Allopurinol 100 Mg Tablet PO 100 mg DAILY@0800 ANGELA Administration Apixaban 5 mg 03/18/25 22:45 03/28/25 09:32 Apixaban 5 Mg Tablet PO 5 mg Q12HR ANGELA Administration Bumetanide 1 mg 03/29/25 09:00 Bumetanide 1 Mg Tablet PO BID ANGELA Calcitriol 0.25 mcg 03/19/25 09:00 03/26/25 08:58 Calcitriol 0.25 Mcg Capsule PO 0.25 mcg MoWeFr ANGELA Administration Docusate Sodium 100 mg 03/19/25 09:00 03/28/25 09:32 Docusate Sodium 100 Mg Capsule PO 100 mg Q12HR ANGELA Administration Empagliflozin 10 mg 03/19/25 10:35 03/28/25 09:30 Empagliflozin 10 Mg Tablet PO 10 mg DAILY ANGELA Administration Ergocalciferol 1,250 mcg 03/22/25 09:00 03/22/25 09:05 Ergocalciferol (Vitamin D2) 1,250 Mcg (50,000 Units) Capsule PO 1,250 mcg WEEKLY ANGELA Administration Ergocalciferol 1,250 mcg 03/22/25 09:00 03/22/25 12:54 Ergocalciferol (Vitamin D2) 1,250 Mcg (50,000 Units) Capsule PO 1,250 mcg WEEKLY ANGELA Administration Famotidine 20 mg 03/20/25 21:00 03/28/25 09:32 Famotidine 20 Mg Tablet PO 20 mg Q12HR ANGELA Administration Ferrous Sulfate 325 mg 03/19/25 09:00 03/28/25 09:32 Ferrous Sulfate 325 Mg Tablet PO 325 mg BID ANGELA Administration Fluticasone Propionate 1 spray 03/18/25 22:39 Fluticasone Propionate 0.05% Na Spr 16 Gm Btl (*Bkc) NASAL DAILY PRN Congestion Gabapentin 300 mg 03/20/25 14:00 03/28/25 13:23 Gabapentin 300 Mg Capsule PO 300 mg Q8HR ANGELA Administration Hyoscyamine 0.0625 mg 03/19/25 13:48 03/20/25 09:56 Hyoscyamine Sulfate 0.0625 Mg Tablet PO 0.0625 mg Q4H PRN Administration Bladder Spasm Levofloxacin 250 mg 03/25/25 11:00 03/28/25 12:05 Levofloxacin 250 Mg Tablet PO 250 mg Q24H ANGELA Administration Levothyroxine Sodium 200 mcg 03/19/25 06:30 03/28/25 06:00 Levothyroxine Sodium 100 Mcg Tablet PO 200 mcg DAILY@0630 ANGELA Administration Metolazone 2.5 mg 03/28/25 09:00 03/28/25 09:31 Metolazone 2.5 Mg Tablet PO 2.5 mg On Hold: 03/28/25 09:38 QAM ANGELA Administration Metoprolol Tartrate 50 mg 03/19/25 09:00 03/28/25 09:28 Metoprolol Tartrate 50 Mg Tab PO 50 mg Q12HR ANGELA Administration Midodrine 5 mg 03/20/25 13:00 03/28/25 13:21 Midodrine Hcl 2.5 Mg Tablet PO 5 mg TID ANGELA Administration Multi-Ingred Cream/Lotion/Oil/Oint 1 applic 03/19/25 09:00 03/28/25 09:33 Eucerin Cream 120 Gm Jar TOPICAL 1 applic DAILY ANGELA Administration Oxybutynin Chloride 5 mg 03/19/25 12:30 03/27/25 17:21 Oxybutynin Chloride 5 Mg Tablet PO 5 mg TID PRN Administration Bladder Spasm Polyethylene Glycol 17 gm 03/20/25 09:00 03/28/25 09:33 Polyethylene Glycol 3350 17 Gm Powd.Pack PO 17 gm DAILY ANGELA Administration Potassium Chloride 20 meq 03/19/25 08:00 03/28/25 13:21 Potassium Chloride 20 Meq Er Tablet PO 20 meq TIDWM ANGELA Administration Spironolactone 25 mg 03/19/25 09:00 03/28/25 09:33 Spironolactone 25 Mg Tablet PO 25 mg DAILY ANGELA Administration Tamsulosin HCl 0.4 mg 03/19/25 09:00 03/28/25 09:33 Tamsulosin Hcl 0.4 Mg Capsule PO 0.4 mg QAM ANGELA Administration Radiology Results: ITS Impressions Chest X-Ray 03/18/25 13:29 IMPRESSION: 1. No acute cardiopulmonary findings given portable technique. Consider PA and lateral films with deep inspiration. Labs Labs: Laboratory Tests 03/28/25 05:20 03/28/25 05:20 Calcium 9.4 Magnesium 2.7 H Total Bilirubin 0.5 AST 21 ALT 10 Alkaline Phosphatase 62 Total Protein 6.1 L Albumin 3.5
--- NOTE | 2025-03-28 13:16 | PM.IMPN2 ---
Assessment and Plan Assessment and Plan (1) Acute on chronic diastolic heart failure: Code(s): I50.33 - Acute on chronic diastolic (congestive) heart failure Status: Acute Assessment and Plan: -echo on 12/17/2024 was read as left ventricular systolic function is normal estimated at 65-70, left ventricular diastolic function is abnormal. -patient 2+ the 3+ pitting edema to left lower extremity. -IV Bumex has been ordered. The patient got a dose of Lasix in the emergency room. Monitor renal function closely. Continue with potassium supplement as well. -continue with Aldactone. -continue with Zaroxolyn -cardiology consulted: Appreciate nephrology input. Midodrine was added to help with BP Decrease Bumex to 1mg IV BID Continue metolazone Continue spironolactone Continue metoprolol with holding parameters (hold for SBP<110mm Hg) Continue empagliflozin Continue Eliquis for anticoagulation for A fib/flutter Check weight, ins and outs, and renal function daily Check and replace electrolytes to keep K>4 and Mg>2 Monitor on telemetry 03/22 - cardiology, DR Kirk was not sure why pt on minoxidil- so i was held- will let cardiology decide if pt needs to be on it or not -i/o reviewed, he is diuresing well. 03/23 - cr/bun 2. bumex 2gm iv iv push bid, metolazone 5 mg -continue Jardiance 10 mg p.o. daily, spironolactone 25 mg p.o. daily -on azetazolamide 250mg PO daily -require midodrine 5 mg p.o. t.i.d. while being diuresed 03/24 Getting slightly better today. Continue diuresis. 03/25/2025 Gradually improving, will contnue current treatment, nephrology on board. 03/26/2025: Weight coming down. On Bumex 2 mg IV b.i.d. metolazone spironolactone. 03/27/2025 Bumex changed to oral (2) Cardiac enzymes elevated: Code(s): R74.8 - Abnormal levels of other serum enzymes Status: Acute Assessment and Plan: -cardiology has been consulted. -troponin 0.057, 0.061. Repeat troponin in the a.m.. -the patient is not short of breath or having any chest pain. -this could be related to his CHF and are chronic renal failure. (3) UTI (urinary tract infection): Code(s): N39.0 - Urinary tract infection, site not specified Status: Acute Assessment and Plan: -he was started on Rocephin. Swith to Po antibiotics to levofloxacin 250 mg every 24 hour (4) Atrial fibrillation: Qualifiers: Atrial fibrillation type: longstanding persistent Qualified Code(s): I48.11 - Longstanding persistent atrial fibrillation Code(s): I48.91 - Unspecified atrial fibrillation Status: Chronic Assessment and Plan: -the patient is currently in sinus rhythm. -continue with Eliquis -continue with metoprolol -rate is controlled at this time. - bleeding precautions (5) Venous stasis dermatitis: Code(s): I87.2 - Venous insufficiency (chronic) (peripheral) Status: Acute Assessment and Plan: -continue with lanolin oil patient has a right [id number] amputation that is fairly new from a couple months ago. (6) Peripheral vascular disease: Code(s): I73.9 - Peripheral vascular disease, unspecified Status: Acute Assessment and Plan: -the patient is on apixaban. (7) Dyslipidemia: Code(s): E78.5 - Hyperlipidemia, unspecified Status: Acute Assessment and Plan: -continue with home medications. The patient does not appear to be on any statins for unknown reasons. (8) Hypothyroidism: Qualifiers: Hypothyroidism type: acquired Qualified Code(s): E03.9 - Hypothyroidism, unspecified Code(s): E03.9 - Hypothyroidism, unspecified Status: Chronic Assessment and Plan: -continue with levothyroxine (9) CKD (chronic kidney disease) stage 3, GFR 30-59 ml/min: Qualifiers: Chronic kidney disease stage 3 subtype: stage 3b (GFR 30-44) Qualified Code(s): N18.32 - Chronic kidney disease, stage 3b Code(s): N18.3 - Chronic kidney disease, stage 3 (moderate) Status: Acute Assessment and Plan: -creatinine 2.84 which is slightly above his baseline of 1.9-2.8. His GFR is 22 which is slightly lower than his baseline of 31-34 -monitor BMP daily. -may consider Nephrology consult if labs worsen with diuretics. -nephrology consulted: at this point will give him midodrine to get the blood pressure back up, and continue diuretics. I will increase the metolazone to5mg once a day, change his bumetanide to2mg IV twice a day, and continue the spironolactone and acetazolamide 03/24 continue diuresing monitor daily labs 03/25- continue diuresing, midodrine to help wit BP slowly improving but not at his baseline yet Dr Al is fooliowng (10) Anemia of chronic disease: Code(s): D63.8 - Anemia in other chronic diseases classified elsewhere Status: Acute Assessment and Plan: -the patient is slightly above his baseline. This appears to be stable. Most likely secondary to his chronic renal failure. - monitor (11) AMELIA (obstructive sleep apnea): Code(s): G47.33 - Obstructive sleep apnea (adult) (pediatric) Status: Chronic Assessment and Plan: The patient brought his own CPAP machine, he may continue to use this . (12) Gout: Qualifiers: Gout site: multiple sites Gout etiology: unspecified cause Chronicity: chronic Qualified Code(s): M1A.09X0 - Idiopathic chronic gout, multiple sites, without tophus (tophi) Code(s): M10.9 - Gout, unspecified Status: Acute Assessment and Plan: Stable on current meds (13) Rosacea: Code(s): L71.9 - Rosacea, unspecified Status: Acute Assessment and Plan: Stable on current meds Plan The patient has chronic hyponatremia. Most likely secondary to his CHF with 3rd spacing. PT OT to see to transition to home with home health Subjective Date/time seen: 03/28/25 13:16 Interval history: No overnight events. Labs reviewed. Weight coming down. No other complaints. Review of Systems Constitutional: Constitutional: Reports as per HPI and Reports no additional constitutional complaints Eyes: Eyes: Reports as per HPI and Reports no additional eye complaints ENT: Reports system reviewed and no additional complaints, except as documented and Reports Normal hearing present Cardiovascular: Cardiovascular: Reports no additional cardiovascular complaints Respiratory: Respiratory: Reports as per HPI and Reports no additional respiratory complaints Gastrointestinal: Gastrointestinal: Reports as per HPI and Reports no additional gastrointestinal complaints Musculoskeletal: Musculoskeletal: Reports no additional musculoskeletal complaints Integumentary/Breasts: Skin/Breast: Reports system reviewed and no additional complaints, except as docu Neurologic: Reports system reviewed and no additional complaints, except as documented and Reports Normal hearing present Psychiatric: Psychiatric: Reports no additional psychiatric complaints and Reports as per HPI Hematologic/Lymphatic: Hematologic/Lymphatic: Reports no additional hematologic/lymphatic complaints Allergic/Immunologic: Allergic/Immunologic: Reports no additional allergic/immunologic complaints Exam Const: General: cooperative, comfortable, no acute distress, well developed, awake, Physically active, average body habitus and well nourished Nutritional Appearance: average body habitus and well nourished Orientation/consciousness: oriented to person, oriented to place, oriented to time and patient oriented x3 Limitations: no limitations HENMT: Head: normal to inspection, No palpable skull fracture present, normocephalic, atraumatic and abrasion Ears: hearing grossly normal bilaterally Eyes: General: appearance normal, both eyes and all related structures Alignment and Position: alignment normal Periorbital: periorbital findings normal Eyelids: eyelids normal Neck: Neck: normal visual inspection, full ROM and no lymphadenopathy Chest: Chest palpation & inspection: normal inspection of the chest Resp: Effort & Inspection: normal respiratory effort Auscultation: clear to auscultation bilaterally Cardio: Palpation: normal PMI Rate: regular rate Rhythm: regular rhythm Heart sounds: S1 normal heart sound present and S2 normal heart sound present GI: Inspection: normal to inspection Auscultation: normal bowel sounds : General: Yes no CVA tenderness Back/Spine/Pelvis: Back: no CVA tenderness Cervical Spine: cervical ROM normal Skin: General skin exam: normal color Lesions: no lesions Rashes: no rashes Trauma: no lacerations or abrasions Wounds: no wounds Hair: normal Nails: normal Neuro: General: oriented to person, oriented to place, oriented to time and patient oriented x3 Cranial nerves: Yes Normal hearing present Cognition (Neuro): normal cognition Speech: normal speech Extrem: General: normal to inspection and edema Right upper extremity: normal to inspection and shoulder/upper arm Left upper extremity: normal to inspection and shoulder/upper arm Psych: Appearance: grossly normal Mental Status: mental status grossly normal Speech and movement: Normal speech and movement present Affect: normal affect Attitude: cooperative Thought process: Normal thought process present Insight: Good insight present (Psych) Judgement: Good judgement present (Psych) Objective Data Vital Signs Vital Signs: Vital Signs - 24 hr 03/27/25 14:00 03/27/25 19:00 03/27/25 20:00 Temperature 97.8 F Pulse Rate 65 Respiratory Rate 18 Blood Pressure 115/59 L 108/58 L Pulse Oximetry 97 Oxygen Delivery Room Air 03/27/25 21:45 03/28/25 06:00 03/28/25 09:28 Temperature 97.8 F 97.4 F L Pulse Rate 53 L 54 L 66 Respiratory Rate 16 16 Blood Pressure 121/54 L 111/56 L Pulse Oximetry 96 100 Oxygen Delivery Intake/Output Intake/Output: Intake & Output 03/25/25 03/26/25 03/27/25 03/28/25 23:59 23:59 23:59 23:59 Intake Total 1840 1510 920 370 Output Total 4659 6085 3300 Balance -2665 -4090 -2873 370 Meds/Results Medications: Active Medications Generic Name Dose Route Start Last Admin Trade Name Freq PRN Reason Stop Dose Admin Acetaminophen 500 mg 03/18/25 22:39 03/28/25 09:40 Acetaminophen 500 Mg Tablet PO 500 mg Q6H PRN Administration fever or pain Acetazolamide 250 mg 03/19/25 08:00 03/28/25 09:32 Acetazolamide Tab 250 Mg Tablet PO 250 mg DAILY@0800 ANGELA Administration Allopurinol 100 mg 03/19/25 08:00 03/28/25 09:30 Allopurinol 100 Mg Tablet PO 100 mg DAILY@0800 ANGELA Administration Apixaban 5 mg 03/18/25 22:45 03/28/25 09:32 Apixaban 5 Mg Tablet PO 5 mg Q12HR ANGELA Administration Bumetanide 1 mg 03/29/25 09:00 Bumetanide 1 Mg Tablet PO BID ANGELA Calcitriol 0.25 mcg 03/19/25 09:00 03/26/25 08:58 Calcitriol 0.25 Mcg Capsule PO 0.25 mcg MoWeFr ANGELA Administration Docusate Sodium 100 mg 03/19/25 09:00 03/28/25 09:32 Docusate Sodium 100 Mg Capsule PO 100 mg Q12HR ANGELA Administration Empagliflozin 10 mg 03/19/25 10:35 03/28/25 09:30 Empagliflozin 10 Mg Tablet PO 10 mg DAILY ANGELA Administration Ergocalciferol 1,250 mcg 03/22/25 09:00 03/22/25 09:05 Ergocalciferol (Vitamin D2) 1,250 Mcg (50,000 Units) Capsule PO 1,250 mcg WEEKLY ANGELA Administration Ergocalciferol 1,250 mcg 03/22/25 09:00 03/22/25 12:54 Ergocalciferol (Vitamin D2) 1,250 Mcg (50,000 Units) Capsule PO 1,250 mcg WEEKLY ANGELA Administration Famotidine 20 mg 03/20/25 21:00 03/28/25 09:32 Famotidine 20 Mg Tablet PO 20 mg Q12HR ANGELA Administration Ferrous Sulfate 325 mg 03/19/25 09:00 03/28/25 09:32 Ferrous Sulfate 325 Mg Tablet PO 325 mg BID ANGELA Administration Fluticasone Propionate 1 spray 03/18/25 22:39 Fluticasone Propionate 0.05% Na Spr 16 Gm Btl (*Bkc) NASAL DAILY PRN Congestion Gabapentin 300 mg 03/20/25 14:00 03/28/25 06:00 Gabapentin 300 Mg Capsule PO 300 mg Q8HR ANGELA Administration Hyoscyamine 0.0625 mg 03/19/25 13:48 03/20/25 09:56 Hyoscyamine Sulfate 0.0625 Mg Tablet PO 0.0625 mg Q4H PRN Administration Bladder Spasm Levofloxacin 250 mg 03/25/25 11:00 03/28/25 12:05 Levofloxacin 250 Mg Tablet PO 250 mg Q24H ANGELA Administration Levothyroxine Sodium 200 mcg 03/19/25 06:30 03/28/25 06:00 Levothyroxine Sodium 100 Mcg Tablet PO 200 mcg DAILY@0630 ANGELA Administration Metolazone 2.5 mg 03/28/25 09:00 03/28/25 09:31 Metolazone 2.5 Mg Tablet PO 2.5 mg On Hold: 03/28/25 09:38 QAM ANGELA Administration Metoprolol Tartrate 50 mg 03/19/25 09:00 03/28/25 09:28 Metoprolol Tartrate 50 Mg Tab PO 50 mg Q12HR ANGELA Administration Midodrine 5 mg 03/20/25 13:00 03/28/25 09:32 Midodrine Hcl 2.5 Mg Tablet PO 5 mg TID ANGELA Administration Multi-Ingred Cream/Lotion/Oil/Oint 1 applic 03/19/25 09:00 03/28/25 09:33 Eucerin Cream 120 Gm Jar TOPICAL 1 applic DAILY ANGELA Administration Oxybutynin Chloride 5 mg 03/19/25 12:30 03/27/25 17:21 Oxybutynin Chloride 5 Mg Tablet PO 5 mg TID PRN Administration Bladder Spasm Polyethylene Glycol 17 gm 03/20/25 09:00 03/28/25 09:33 Polyethylene Glycol 3350 17 Gm Powd.Pack PO 17 gm DAILY ANGELA Administration Potassium Chloride 20 meq 03/19/25 08:00 03/28/25 09:32 Potassium Chloride 20 Meq Er Tablet PO 20 meq TIDWM ANGELA Administration Spironolactone 25 mg 03/19/25 09:00 03/28/25 09:33 Spironolactone 25 Mg Tablet PO 25 mg DAILY ANGELA Administration Tamsulosin HCl 0.4 mg 03/19/25 09:00 03/28/25 09:33 Tamsulosin Hcl 0.4 Mg Capsule PO 0.4 mg QAM ANGELA Administration Radiology Results: ITS Impressions Chest X-Ray 03/18/25 13:29 IMPRESSION: 1. No acute cardiopulmonary findings given portable technique. Consider PA and lateral films with deep inspiration. Labs Labs: Laboratory Results - last 24 hr 03/28/25 05:20 WBC 9.5 RBC 4.43 L Hgb 11.4 L Hct 39.7 L MCV 89.6 MCH 25.7 L MCHC 28.7 L RDW 18.0 H Plt Count 336 MPV 10.5 H Immature Gran % (Auto) 1.0 H Neut % (Auto) 73.1 Lymph % (Auto) 8.0 L [place] % (Auto) 10.0 H Eos % (Auto) 6.9 H Baso % (Auto) 1.0 Lymph # (Auto) 0.76 L [place] # (Auto) 1.0 H Eos # (Auto) 0.7 H Baso # (Auto) 0.1 Abs Immat Gran (auto) 0.09 H Absolute Neuts (auto) 6.9 H Absolute Nucleated RBC 0.000 Band Neutrophils % Not Reportable Nucleated RBC % 0.0 Platelet Estimate Adequate Polychromasia Occasional Hypochromasia 1+ Anisocytosis 1+ Tear Drop Cells Occasional Ovalocytes 1+ Schistocytes Rare Sodium 132 L Potassium 3.8 Chloride 91 L Carbon Dioxide 36 H Anion Gap 5 BUN 44 H Creatinine 2.53 H Estim Creat Clear Calc 32 Estimated GFR 25 L Glucose 89 Calcium 9.4 Magnesium 2.7 H Total Bilirubin 0.5 AST 21 ALT 10 Alkaline Phosphatase 62 Total Protein 6.1 L Albumin 3.5 Quality VTE Prophylaxis VTE prophylaxis: pharmacologic ordered
[2025-03-29] MEDS: LEVOTHYROXINE SODIUM 100 MCG TABLET 200 MCG PO (05:47)
[2025-03-29] MEDS: GABAPENTIN 300 MG CAPSULE PO ×3 (05:47→21:43)
[2025-03-29 06:00] VITALS: BP 112/78; PULSE 73; RESP 20; TEMP 36.6; O2SAT 100
[2025-03-29 06:20] LABS: Hematocrit 41.4 % (42.0-52.0); Hemoglobin 11.7 g/dL (14.0-18.0); Immature Granulocyte Percent A 1.0 % (0-0.5); Lymphocytes Absolute Auto 0.71 K/mm3 (0.9-3.2); Mean Corpuscular HGB Conc 28.3 g/dl (32-36); Mean Corpuscular Hemoglobin 25.7 pg (26-34); Mean Corpuscular Volume 90.8 fl (80-100); Nucleated Red Blood Cells Absolute Auto 0.000 K/mm3 (0.0-0.012); Nucleated Red Blood Cells Perc 0.0 % (0.0-0.2); Platelet Count Result 332 k/mm3 (150-375); Red Blood Count 4.56 M/mm3 (4.6-6.20); White Blood Count 9.7 K/mm3 (4.5-10.0)
[2025-03-29 06:39] LABS: Anion Gap 6 mmol/L (4-12); Blood Urea Nitrogen 45 mg/dL (9-20); Calcium 9.5 mg/dL (8.4-10.2); Carbon Dioxide 33 mmol/L (22-30); Chloride 93 mmol/L (98-107); Estimated CRCL calculation 31 ml/min; Estimated Glomerular Filt Rate 24; Glucose 99 mg/dL (65-110); Magnesium 2.8 mg/dL (1.6-2.3); Potassium 4.1 mmol/L (3.4-5.0); Sodium 132 mmol/L (137-145)
[2025-03-29 07:37] LABS: Anisocytosis 1+; Schistocytes None Seen
[2025-03-29] MEDS: MIDODRINE HCL 2.5 MG TABLET 5 MG PO ×3 (09:17→16:46)
[2025-03-29] MEDS: BUMETANIDE 1 MG TABLET PO ×2 (09:18→16:46)
[2025-03-29] MEDS: FAMOTIDINE 20 MG TABLET PO ×2 (09:18→21:43)
[2025-03-29] MEDS: TAMSULOSIN HCL 0.4 MG CAPSULE PO (09:18)
[2025-03-29] MEDS: ERGOCALCIFEROL (VITAMIN D2) 1,250 MCG (50,000 UNITS) CAPSULE 1250 MCG PO (09:18)
[2025-03-29] MEDS: acetaZOLAMIDE TAB 250 MG TABLET PO (09:18)
[2025-03-29 09:19] VITALS: PULSE 65
[2025-03-29] MEDS: SPIRONOLACTONE 25 MG TABLET PO (09:19)
[2025-03-29] MEDS: APIXABAN 5 MG TABLET PO ×2 (09:19→21:43)
[2025-03-29] MEDS: EMPAGLIFLOZIN 10 MG TABLET PO (09:19)
[2025-03-29] MEDS: FERROUS SULFATE 325 MG TABLET PO ×2 (09:19→16:46)
[2025-03-29] MEDS: POTASSIUM CHLORIDE 10 MEQ ER TABLET PO ×3 (09:19→16:47)
[2025-03-29] MEDS: METOPROLOL TARTRATE 50 MG TAB PO ×2 (09:19→21:43)
[2025-03-29] MEDS: DOCUSATE SODIUM 100 MG CAPSULE PO ×2 (09:19→21:44)
[2025-03-29] MEDS: ACETAMINOPHEN 500 MG TABLET PO ×2 (09:23→21:43)
[2025-03-29] MEDS: EUCERIN CREAM 120 GM JAR 1 APPLIC TOPICAL (09:29)
--- NOTE | 2025-03-29 10:57 | P.PNNP_ITS ---
Progress Note: A&P Assessment and Plan (1) Acute kidney injury: Code(s): N17.9 - Acute kidney failure, unspecified Status: Resolved Assessment and Plan: * slight worsening Over the week and about the same today as it was yesterday. * as noted by labs on admission (creatinine of 2.84mg/dl) * evaluation to date noted: * urine electrolytes (FeUrea) are prerenal * mild proteinuria * CPK low * UA suggestive of infection - but urine culture negative * based on evidence to date, likely secondary to significant renal venous hypertension - his improvement in renal function/creatinine with diuresis supports this etiology * along with swelling in his LEs and scrotum, he likely has developed swelling in his kidneys * this is further complicated by soft BPs leading to chronic prerenal azotemia (a variation of cardiorenal syndrome) * on midodrine for BP support with ongoing diuresis * Currently getting bumetanide 1mg p.o. b.i.d., spironolactone 25 daily. Metolazone on hold. * Yesterday 850 in and 1900 out. * Will continue with same medications right now. He may end up needing metolazone 2 or 3 times a week down the line. * follow trend of repeat labs and UOP (2) Stage 3b chronic kidney disease: Code(s): N18.32 - Chronic kidney disease, stage 3b Status: Chronic Assessment and Plan: * baseline creatinine runs ~ 1.7 - 2.3mg/dl in the last year or so * however, has been as low as 1.6mg/dl and as high as 2.7mg/dl in association with acute hospitalizations * this causes him to fluctuate between CKD stage 3b and stage 4 * secondary to hypertensive nephrosclerosis, vascular disease, as well as the necessity of chronic diuretic therapy to maintain his volume status along age- related change * has required acute [employer]UFA[employer]ISTANT/dialysis x 2 in the past for JENA on CKD in association with volume/fluid overload unresponsive to diuretic therapy (3) Anasarca: Code(s): R60.1 - Generalized edema Status: Acute Assessment and Plan: * chronic issue with recurrent exacerbations as noted by his numerous acute hospitalizations * this is felt to be secondary to his severe right-sided heart failure with some possible contributions from his AMELIA * continue diuresis (IV bumex, metolazone, acetazolamide, and spironolactone) * almost 30L negative since admission * given rise in creatinine in association with hand/thigh cramping (a symptom he has had with overdiuresis), * Currently on oral Bumex and spironolactone. * Metolazone and acetazolamide are on hold (4) Acute on chronic diastolic heart failure: Code(s): I50.33 - Acute on chronic diastolic (congestive) heart failure Status: Acute Assessment and Plan: * as noted by symptoms of shortness of breath and #3 * recent Echo (03/20) noted: * left ventricular systolic function is normal, estimated at 55 - 60% * left ventricular diastolic function is abnormal * mild tricuspid valve regurgitation * no pulmonary hypertension, estimated pulmonary arterial systolic pressure is 30 mmHg * Cardiology recommendations noted * continue diuresis but transition to oral diuretics with further medication changes noted * on midodrine for BP support with diuresis * continue Jardiance * follow I/Os, daily weights, and respiratory status (5) Anemia: Qualifiers: Anemia type: due to chronic kidney disease Chronic kidney disease stage: stage 3 (moderate) Chronic kidney disease stage 3 subtype: unspecified whether 3a or 3b Qualified Code(s): N18.30 - Chronic kidney disease, stage 3 unspecified; D63.1 - Anemia in chronic kidney disease Code(s): D64.9 - Anemia, unspecified Status: Acute Assessment and Plan: * partly due to CKD * anemia studies with iron deficiency * H/H relatively stable if not improved (6) Hyponatremia: Code(s): E87.1 - Hypo-osmolality and hyponatremia Status: Chronic Assessment and Plan: * due to diuretics and heart failure * level is stable (7) Atrial fibrillation: Qualifiers: Atrial fibrillation type: longstanding persistent Qualified Code(s): I48.11 - Longstanding persistent atrial fibrillation Code(s): I48.91 - Unspecified atrial fibrillation Status: Chronic Assessment and Plan: * heart rate 65 * on metoprolol * on eliquis (8) AMELIA (obstructive sleep apnea): Code(s): G47.33 - Obstructive sleep apnea (adult) (pediatric) Status: Chronic Assessment and Plan: * continue CPAP at night and with rest Will continue to follow. Subjective Date/time seen: 03/29/25 10:57 Interval history: patient is alert. Feels okay. Has not gotten out of bed much. Exam Narrative: General: large but WD/WN male in NAD Heart: normal S1 and S2; no rub Or gallop Lungs: clear bilateral Abdomen: obese but soft, nontender, nondistended, positive bowel sounds Extremities: no cyanosis or clubbing; 1+ edema; s/p right BKA. Scrotum is much better. Skin: chronic changes apparent in LLE Objective Data Vital Signs Vital Signs: Vital Signs - 24 hr 03/28/25 14:00 03/28/25 20:00 03/28/25 21:13 Temperature 97.6 F Pulse Rate 77 72 Respiratory Rate 18 Blood Pressure 105/54 L Pulse Oximetry 96 Oxygen Delivery Room Air 03/28/25 21:50 03/28/25 22:05 03/29/25 06:00 Temperature 97.0 F L 97.8 F Pulse Rate 60 73 Respiratory Rate 18 20 Blood Pressure 115/55 L 112/78 Pulse Oximetry 99 96 100 Oxygen Delivery Autopap 03/29/25 09:19 Temperature Pulse Rate 65 Respiratory Rate Blood Pressure Pulse Oximetry Oxygen Delivery Intake/Output Intake/Output: Intake & Output 03/26/25 03/27/25 03/28/25 03/29/25 23:59 23:59 23:59 23:59 Intake Total 1510 920 850 360 Output Total 5600 3300 1900 500 Balance -4090 -2380 -1050 -140 Meds/Results Medications: Active Medications Generic Name Dose Route Start Last Admin Trade Name Marcosq PRN Reason Stop Dose Admin Acetaminophen 500 mg 03/18/25 22:39 03/29/25 09:23 Acetaminophen 500 Mg Tablet PO 500 mg Q6H PRN Administration fever or pain Acetazolamide 250 mg 03/19/25 08:00 03/29/25 09:18 Acetazolamide Tab 250 Mg Tablet PO 250 mg DAILY@0800 ANGELA Administration Allopurinol 100 mg 03/19/25 08:00 03/29/25 09:18 Allopurinol 100 Mg Tablet PO 100 mg DAILY@0800 [facility] Administration Apixaban 5 mg 03/18/25 22:45 03/29/25 09:19 Apixaban 5 Mg Tablet PO 5 mg Q12HR ANGELA Administration Bumetanide 1 mg 03/29/25 09:00 03/29/25 09:18 Bumetanide 1 Mg Tablet PO 1 mg BID [facility] Administration Calcitriol 0.25 mcg 03/19/25 09:00 03/29/25 09:44 Calcitriol 0.25 Mcg Capsule PO 0.25 mcg MoWeFr [facility] Administration Docusate Sodium 100 mg 03/19/25 09:00 03/29/25 09:19 Docusate Sodium 100 Mg Capsule PO 100 mg Q12HR ANGELA Administration Empagliflozin 10 mg 03/19/25 10:35 03/29/25 09:19 Empagliflozin 10 Mg Tablet PO 10 mg DAILY [facility] Administration Ergocalciferol 1,250 mcg 03/22/25 09:00 03/29/25 09:18 Ergocalciferol (Vitamin D2) 1,250 Mcg (50,000 Units) Capsule PO 1,250 mcg WEEKLY [facility] Administration Ergocalciferol 1,250 mcg 03/22/25 09:00 03/29/25 10:20 Ergocalciferol (Vitamin D2) 1,250 Mcg (50,000 Units) Capsule PO Not Given WEEKLY [facility] Famotidine 20 mg 03/20/25 21:00 03/29/25 09:18 Famotidine 20 Mg Tablet PO 20 mg Q12HR [facility] Administration Ferrous Sulfate 325 mg 03/19/25 09:00 03/29/25 09:19 Ferrous Sulfate 325 Mg Tablet PO 325 mg BID [facility] Administration Fluticasone Propionate 1 spray 03/18/25 22:39 Fluticasone Propionate 0.05% Na Spr 16 Gm Btl (*Bkc) NASAL DAILY PRN Congestion Gabapentin 300 mg 03/20/25 14:00 03/29/25 05:47 Gabapentin 300 Mg Capsule PO 300 mg Q8HR ANGELA Administration Hyoscyamine 0.0625 mg 03/19/25 13:48 03/20/25 09:56 Hyoscyamine Sulfate 0.0625 Mg Tablet PO 0.0625 mg Q4H PRN Administration Bladder Spasm Levofloxacin 250 mg 03/25/25 11:00 03/28/25 12:05 Levofloxacin 250 Mg Tablet PO 250 mg Q24H ANGELA Administration Levothyroxine Sodium 200 mcg 03/19/25 06:30 03/29/25 05:47 Levothyroxine Sodium 100 Mcg Tablet PO 200 mcg DAILY@0630 ANGELA Administration Metolazone 2.5 mg 03/28/25 09:00 03/28/25 09:31 Metolazone 2.5 Mg Tablet PO 2.5 mg On Hold: 03/28/25 09:38 QAM ANGELA Administration Metoprolol Tartrate 50 mg 03/19/25 09:00 03/29/25 09:19 Metoprolol Tartrate 50 Mg Tab PO 50 mg Q12HR ANGELA Administration Midodrine 5 mg 03/20/25 13:00 03/29/25 09:17 Midodrine Hcl 2.5 Mg Tablet PO 5 mg TID ANGELA Administration Multi-Ingred Cream/Lotion/Oil/Oint 1 applic 03/19/25 09:00 03/29/25 09:29 Eucerin Cream 120 Gm Jar TOPICAL 1 applic DAILY ANGELA Administration Oxybutynin Chloride 5 mg 03/19/25 12:30 03/27/25 17:21 Oxybutynin Chloride 5 Mg Tablet PO 5 mg TID PRN Administration Bladder Spasm Polyethylene Glycol 17 gm 03/20/25 09:00 03/29/25 09:17 Polyethylene Glycol 3350 17 Gm Powd.Pack PO 17 gm DAILY ANGELA Administration Potassium Chloride 10 meq 03/29/25 08:00 03/29/25 09:19 Potassium Chloride 10 Meq Er Tablet PO 10 meq TIDWM ANGELA Administration Spironolactone 25 mg 03/19/25 09:00 03/29/25 09:19 Spironolactone 25 Mg Tablet PO 25 mg DAILY ANGELA Administration Tamsulosin HCl 0.4 mg 03/19/25 09:00 03/29/25 09:18 Tamsulosin Hcl 0.4 Mg Capsule PO 0.4 mg QAM ANGELA Administration Radiology Results: ITS Impressions Chest X-Ray 03/18/25 13:29 IMPRESSION: 1. No acute cardiopulmonary findings given portable technique. Consider PA and lateral films with deep inspiration. Labs Labs: Laboratory Results - last 24 hr 03/29/25 04:53 WBC 9.7 RBC 4.56 L Hgb 11.7 L Hct 41.4 L MCV 90.8 MCH 25.7 L MCHC 28.3 L RDW 18.4 H Plt Count 332 MPV 10.6 H Immature Gran % (Auto) 1.0 H Neut % (Auto) 75.2 H Lymph % (Auto) 7.4 L [place] % (Auto) 8.9 H Eos % (Auto) 6.6 H Baso % (Auto) 0.9 Lymph # (Auto) 0.71 L [place] # (Auto) 0.9 H Eos # (Auto) 0.6 H Baso # (Auto) 0.1 Abs Immat Gran (auto) 0.10 H Absolute Neuts (auto) 7.3 H Absolute Nucleated RBC 0.000 Band Neutrophils % Not Reportable Nucleated RBC % 0.0 Platelet Estimate Adequate Anisocytosis 1+ Schistocytes None seen Sodium 132 L Potassium 4.1 Chloride 93 L Carbon Dioxide 33 H Anion Gap 6 BUN 45 H Creatinine 2.60 H Estim Creat Clear Calc 31 Estimated GFR 24 L Glucose 99 Calcium 9.5 Magnesium 2.8 H
--- NOTE | 2025-03-29 11:48 | PCOTNOTE ---
OT attempted x 2 this A.M. Patient was on the bed muñoz and then verbalized he is waiting for lunch to arrive, try back this afternoon.
[2025-03-29 12:21] LABS: IFOB Positive Control Positive; Immunochemical Fecal Occult Bl Negative (N)
--- NOTE | 2025-03-29 13:15 | P.PNIM_ITS ---
Assessment and Plan Assessment and Plan (1) Acute on chronic diastolic heart failure: Code(s): I50.33 - Acute on chronic diastolic (congestive) heart failure Status: Acute Assessment and Plan: -echo on 12/17/2024 was read as left ventricular systolic function is normal estimated at 65-70, left ventricular diastolic function is abnormal. -patient 2+ the 3+ pitting edema to left lower extremity. -IV Bumex has been ordered. The patient got a dose of Lasix in the emergency room. Monitor renal function closely. Continue with potassium supplement as well. -continue with Aldactone. -continue with Zaroxolyn -cardiology consulted: Appreciate nephrology input. Midodrine was added to help with BP Decrease Bumex to 1mg IV BID Continue metolazone Continue spironolactone Continue metoprolol with holding parameters (hold for SBP<110mm Hg) Continue empagliflozin Continue Eliquis for anticoagulation for A fib/flutter Check weight, ins and outs, and renal function daily Check and replace electrolytes to keep K>4 and Mg>2 Monitor on telemetry 03/22 - cardiology, DR Kirk was not sure why pt on minoxidil- so i was held- will let cardiology decide if pt needs to be on it or not -i/o reviewed, he is diuresing well. 03/23 - cr/bun 2. bumex 2gm iv iv push bid, metolazone 5 mg -continue Jardiance 10 mg p.o. daily, spironolactone 25 mg p.o. daily -on azetazolamide 250mg PO daily -require midodrine 5 mg p.o. t.i.d. while being diuresed 03/24 Getting slightly better today. Continue diuresis. 03/25/2025 Gradually improving, will contnue current treatment, nephrology on board. 03/26/2025: Weight coming down. On Bumex 2 mg IV b.i.d. metolazone spironolactone. 03/27/2025 Bumex changed to oral (2) Cardiac enzymes elevated: Code(s): R74.8 - Abnormal levels of other serum enzymes Status: Acute Assessment and Plan: -cardiology has been consulted. -troponin 0.057, 0.061. Repeat troponin in the a.m.. -the patient is not short of breath or having any chest pain. -this could be related to his CHF and are chronic renal failure. (3) UTI (urinary tract infection): Code(s): N39.0 - Urinary tract infection, site not specified Status: Acute Assessment and Plan: -he was started on Rocephin. Swith to Po antibiotics to levofloxacin 250 mg every 24 hour (4) Atrial fibrillation: Qualifiers: Atrial fibrillation type: longstanding persistent Qualified Code(s): I48.11 - Longstanding persistent atrial fibrillation Code(s): I48.91 - Unspecified atrial fibrillation Status: Chronic Assessment and Plan: -the patient is currently in sinus rhythm. -continue with Eliquis -continue with metoprolol -rate is controlled at this time. - bleeding precautions (5) Venous stasis dermatitis: Code(s): I87.2 - Venous insufficiency (chronic) (peripheral) Status: Acute Assessment and Plan: -continue with lanolin oil patient has a right [id number] amputation that is fairly new from a couple months ago. (6) Peripheral vascular disease: Code(s): I73.9 - Peripheral vascular disease, unspecified Status: Acute Assessment and Plan: -the patient is on apixaban. (7) Dyslipidemia: Code(s): E78.5 - Hyperlipidemia, unspecified Status: Acute Assessment and Plan: -continue with home medications. The patient does not appear to be on any statins for unknown reasons. (8) Hypothyroidism: Qualifiers: Hypothyroidism type: acquired Qualified Code(s): E03.9 - Hypothyroidism, unspecified Code(s): E03.9 - Hypothyroidism, unspecified Status: Chronic Assessment and Plan: -continue with levothyroxine (9) CKD (chronic kidney disease) stage 3, GFR 30-59 ml/min: Qualifiers: Chronic kidney disease stage 3 subtype: stage 3b (GFR 30-44) Qualified Code(s): N18.32 - Chronic kidney disease, stage 3b Code(s): N18.3 - Chronic kidney disease, stage 3 (moderate) Status: Acute Assessment and Plan: -creatinine 2.84 which is slightly above his baseline of 1.9-2.8. His GFR is 22 which is slightly lower than his baseline of 31-34 -monitor BMP daily. -may consider Nephrology consult if labs worsen with diuretics. -nephrology consulted: at this point will give him midodrine to get the blood pressure back up, and continue diuretics. I will increase the metolazone to5mg once a day, change his bumetanide to2mg IV twice a day, and continue the spironolactone and acetazolamide 03/24 continue diuresing monitor daily labs 03/25- continue diuresing, midodrine to help wit BP slowly improving but not at his baseline yet Dr Al is fooliowng (10) Anemia of chronic disease: Code(s): D63.8 - Anemia in other chronic diseases classified elsewhere Status: Acute Assessment and Plan: -the patient is slightly above his baseline. This appears to be stable. Most likely secondary to his chronic renal failure. - monitor (11) AMELIA (obstructive sleep apnea): Code(s): G47.33 - Obstructive sleep apnea (adult) (pediatric) Status: Chronic Assessment and Plan: The patient brought his own CPAP machine, he may continue to use this . (12) Gout: Qualifiers: Gout site: multiple sites Gout etiology: unspecified cause Chronicity: chronic Qualified Code(s): M1A.09X0 - Idiopathic chronic gout, multiple sites, without tophus (tophi) Code(s): M10.9 - Gout, unspecified Status: Acute Assessment and Plan: Stable on current meds (13) Rosacea: Code(s): L71.9 - Rosacea, unspecified Status: Acute Assessment and Plan: Stable on current meds Plan The patient has chronic hyponatremia. Most likely secondary to his CHF with 3rd spacing. PT OT to see to transition to home with home health Subjective Date/time seen: 03/29/25 13:15 Interval history: No overnight events. Complains of cramping. Worked with therapy today. No shortness of breath or chest pain. Review of Systems Constitutional: Constitutional: Reports as per HPI and Reports no additional constitutional complaints Eyes: Eyes: Reports as per HPI and Reports no additional eye complaints ENT: Reports system reviewed and no additional complaints, except as documented and Reports Normal hearing present Cardiovascular: Cardiovascular: Reports no additional cardiovascular complaints Respiratory: Respiratory: Reports as per HPI and Reports no additional respiratory complaints Gastrointestinal: Gastrointestinal: Reports as per HPI and Reports no additional gastrointestinal complaints Musculoskeletal: Musculoskeletal: Reports no additional musculoskeletal complaints Integumentary/Breasts: Skin/Breast: Reports system reviewed and no additional complaints, except as docu Neurologic: Reports system reviewed and no additional complaints, except as documented and Reports Normal hearing present Psychiatric: Psychiatric: Reports no additional psychiatric complaints and Reports as per HPI Hematologic/Lymphatic: Hematologic/Lymphatic: Reports no additional hemat ologic/lymphatic complaints Allergic/Immunologic: Allergic/Immunologic: Reports no additional allergic/immunologic complaints Exam Const: General: cooperative, comfortable, no acute distress, well developed, awake, Physically active, average body habitus and well nourished Nutritional Appearance: average body habitus and well nourished Orientation/consciousness: oriented to person, oriented to place, oriented to time and patient oriented x3 Limitations: no limitations HENMT: Head: normal to inspection, No palpable skull fracture present, normocephalic, atraumatic and abrasion Ears: hearing grossly normal bilaterally Eyes: General: appearance normal, both eyes and all related structures Alignment and Position: alignment normal Periorbital: periorbital findings normal Eyelids: eyelids normal Neck: Neck: normal visual inspection, full ROM and no lymphadenopathy Chest: Chest palpation & inspection: normal inspection of the chest Resp: Effort & Inspection: normal respiratory effort Auscultation: clear to auscultation bilaterally Cardio: Palpation: normal PMI Rate: regular rate Rhythm: regular rhythm Heart sounds: S1 normal heart sound present and S2 normal heart sound present GI: Inspection: normal to inspection Auscultation: normal bowel sounds : General: Yes no CVA tenderness Back/Spine/Pelvis: Back: no CVA tenderness Cervical Spine: cervical ROM normal Skin: General skin exam: normal color Lesions: no lesions Rashes: no rashes Trauma: no lacerations or abrasions Wounds: no wounds Hair: normal Nails: normal Neuro: General: oriented to person, oriented to place, oriented to time and patient oriented x3 Cranial nerves: Yes Normal hearing present Cognition (Neuro): normal cognition Speech: normal speech Extrem: General: normal to inspection and edema Right upper extremity: normal to inspection and shoulder/upper arm Left upper extremity: normal to inspection and shoulder/upper arm Psych: Appearance: grossly normal Mental Status: mental status grossly normal Speech and movement: Normal speech and movement present Affect: normal affect Attitude: cooperative Thought process: Normal thought process present Insight: Good insight present (Psych) Judgement: Good judgement present (Psych) Objective Data Vital Signs Vital Signs: Vital Signs - 24 hr 03/28/25 14:00 03/28/25 20:00 03/28/25 21:13 Temperature 97.6 F Pulse Rate 77 72 Respiratory Rate 18 Blood Pressure 105/54 L Pulse Oximetry 96 Oxygen Delivery Room Air 03/28/25 21:50 03/28/25 22:05 03/29/25 06:00 Temperature 97.0 F L 97.8 F Pulse Rate 60 73 Respiratory Rate 18 20 Blood Pressure 115/55 L 112/78 Pulse Oximetry 99 96 100 Oxygen Delivery Autopap 03/29/25 09:19 Temperature Pulse Rate 65 Respiratory Rate Blood Pressure Pulse Oximetry Oxygen Delivery Intake/Output Intake/Output: Intake & Output 03/26/25 03/27/25 03/28/25 03/29/25 23:59 23:59 23:59 23:59 Intake Total 1510 920 850 360 Output Total 5600 3300 1900 500 Balance -4090 -2380 -1050 -140 Meds/Results Medications: Active Medications Generic Name Dose Route Start Last Admin Trade Name Freq PRN Reason Stop Dose Admin Acetaminophen 500 mg 03/18/25 22:39 03/29/25 09:23 Acetaminophen 500 Mg Tablet PO 500 mg Q6H PRN Administration fever or pain Acetazolamide 250 mg 03/19/25 08:00 03/29/25 09:18 Acetazolamide Tab 250 Mg Tablet PO 250 mg DAILY@0800 ANGELA Administration Allopurinol 100 mg 03/19/25 08:00 03/29/25 09:18 Allopurinol 100 Mg Tablet PO 100 mg DAILY@0800 ANGELA Administration Apixaban 5 mg 03/18/25 22:45 03/29/25 09:19 Apixaban 5 Mg Tablet PO 5 mg Q12HR ANGELA Administration Bumetanide 1 mg 03/29/25 09:00 03/29/25 09:18 Bumetanide 1 Mg Tablet PO 1 mg BID ANGELA Administration Calcitriol 0.25 mcg 03/19/25 09:00 03/29/25 09:44 Calcitriol 0.25 Mcg Capsule PO 0.25 mcg MoWeFr ANGELA Administration Docusate Sodium 100 mg 03/19/25 09:00 03/29/25 09:19 Docusate Sodium 100 Mg Capsule PO 100 mg Q12HR ANGELA Administration Empagliflozin 10 mg 03/19/25 10:35 03/29/25 09:19 Empagliflozin 10 Mg Tablet PO 10 mg DAILY ANGELA Administration Ergocalciferol 1,250 mcg 03/22/25 09:00 03/29/25 09:18 Ergocalciferol (Vitamin D2) 1,250 Mcg (50,000 Units) Capsule PO 1,250 mcg WEEKLY ANGELA Administration Ergocalciferol 1,250 mcg 03/22/25 09:00 03/29/25 10:20 Ergocalciferol (Vitamin D2) 1,250 Mcg (50,000 Units) Capsule PO Not Given WEEKLY ANGELA Famotidine 20 mg 03/20/25 21:00 03/29/25 09:18 Famotidine 20 Mg Tablet PO 20 mg Q12HR ANGELA Administration Ferrous Sulfate 325 mg 03/19/25 09:00 03/29/25 09:19 Ferrous Sulfate 325 Mg Tablet PO 325 mg BID ANGELA Administration Fluticasone Propionate 1 spray 03/18/25 22:39 Fluticasone Propionate 0.05% Na Spr 16 Gm Btl (*Bkc) NASAL DAILY PRN Congestion Gabapentin 300 mg 03/20/25 14:00 03/29/25 13:10 Gabapentin 300 Mg Capsule PO 300 mg Q8HR ANGELA Administration Hyoscyamine 0.0625 mg 03/19/25 13:48 03/20/25 09:56 Hyoscyamine Sulfate 0.0625 Mg Tablet PO 0.0625 mg Q4H PRN Administration Bladder Spasm Levofloxacin 250 mg 03/25/25 11:00 03/29/25 12:10 Levofloxacin 250 Mg Tablet PO 250 mg Q24H ANGELA Administration Levothyroxine Sodium 200 mcg 03/19/25 06:30 03/29/25 05:47 Levothyroxine Sodium 100 Mcg Tablet PO 200 mcg DAILY@0630 ANGELA Administration Metolazone 2.5 mg 03/28/25 09:00 03/28/25 09:31 Metolazone 2.5 Mg Tablet PO 2.5 mg On Hold: 03/28/25 09:38 QAM ANGELA Administration Metoprolol Tartrate 50 mg 03/19/25 09:00 03/29/25 09:19 Metoprolol Tartrate 50 Mg Tab PO 50 mg Q12HR ANGELA Administration Midodrine 5 mg 03/20/25 13:00 03/29/25 13:10 Midodrine Hcl 2.5 Mg Tablet PO 5 mg TID ANGELA Administration Multi-Ingred Cream/Lotion/Oil/Oint 1 applic 03/19/25 09:00 03/29/25 09:29 Eucerin Cream 120 Gm Jar TOPICAL 1 applic DAILY ANGELA Administration Oxybutynin Chloride 5 mg 03/19/25 12:30 03/27/25 17:21 Oxybutynin Chloride 5 Mg Tablet PO 5 mg TID PRN Administration Bladder Spasm Polyethylene Glycol 17 gm 03/20/25 09:00 03/29/25 09:17 Polyethylene Glycol 3350 17 Gm Powd.Pack PO 17 gm DAILY ANGELA Administration Potassium Chloride 10 meq 03/29/25 17:00 Potassium Chloride 10 Meq Er Tablet PO BIDWM ANGELA Spironolactone 25 mg 03/19/25 09:00 03/29/25 09:19 Spironolactone 25 Mg Tablet PO 25 mg DAILY ANGELA Administration Tamsulosin HCl 0.4 mg 03/19/25 09:00 03/29/25 09:18 Tamsulosin Hcl 0.4 Mg Capsule PO 0.4 mg QAM ANGELA Administration Radiology Results: ITS Impressions Chest X-Ray 03/18/25 13:29 IMPRESSION: 1. No acute cardiopulmonary findings given portable technique. Consider PA and lateral films with deep inspiration. Labs Labs: Laboratory Results - last 24 hr 03/29/25 03/29/25 04:53 11:55 WBC 9.7 RBC 4.56 L Hgb 11.7 L Hct 41.4 L MCV 90.8 MCH 25.7 L MCHC 28.3 L RDW 18.4 H Plt Count 332 MPV 10.6 H Immature Gran % (Auto) 1.0 H Neut % (Auto) 75.2 H Lymph % (Auto) 7.4 L [place] % (Auto) 8.9 H Eos % (Auto) 6.6 H Baso % (Auto) 0.9 Lymph # (Auto) 0.71 L [place] # (Auto) 0.9 H Eos # (Auto) 0.6 H Baso # (Auto) 0.1 Abs Immat Gran (auto) 0.10 H Absolute Neuts (auto) 7.3 H Absolute Nucleated RBC 0.000 Band Neutrophils % Not Reportable Nucleated RBC % 0.0 Platelet Estimate Adequate Anisocytosis 1+ Schistocytes None seen Sodium 132 L Potassium 4.1 Chloride 93 L Carbon Dioxide 33 H Anion Gap 6 BUN 45 H Creatinine 2.60 H Estim Creat Clear Calc 31 Estimated GFR 24 L Glucose 99 Calcium 9.5 Magnesium 2.8 H Stl Occult Blood (IFOB) Negative Quality VTE Prophylaxis VTE prophylaxis: pharmacologic ordered
[2025-03-29 14:00] VITALS: BP 124/62; PULSE 100; RESP 16; TEMP 36.5; O2SAT 95
[2025-03-29 21:05] VITALS: PULSE 69; O2SAT 94
[2025-03-29 21:43] VITALS: PULSE 82
[2025-03-29 22:00] VITALS: BP 119/71; PULSE 64; RESP 18; TEMP 36.8; O2SAT 98
[2025-03-30] VITALS (9 sets, daily range): BP systolic 104–120; BP diastolic 58–72; PULSE 64–75; RESP 16; TEMP 36.6–36.9; O2SAT 93–99
[2025-03-30] MEDS: LEVOTHYROXINE SODIUM 100 MCG TABLET 200 MCG PO (05:34)
[2025-03-30] MEDS: GABAPENTIN 300 MG CAPSULE PO ×3 (05:34→20:40)
[2025-03-30 06:58] LABS: Hematocrit 42.7 % (42.0-52.0); Hemoglobin 12.2 g/dL (14.0-18.0); Immature Granulocyte Percent A 0.8 % (0-0.5); Lymphocytes Absolute Auto 0.72 K/mm3 (0.9-3.2); Mean Corpuscular HGB Conc 28.6 g/dl (32-36); Mean Corpuscular Hemoglobin 25.8 pg (26-34); Mean Corpuscular Volume 90.3 fl (80-100); Nucleated Red Blood Cells Absolute Auto 0.000 K/mm3 (0.0-0.012); Nucleated Red Blood Cells Perc 0.0 % (0.0-0.2); Platelet Count Result 351 k/mm3 (150-375); Red Blood Count 4.73 M/mm3 (4.6-6.20); White Blood Count 9.2 K/mm3 (4.5-10.0)
[2025-03-30 07:10] LABS: Alanine Aminotransferase 11 U/L (6-50); Albumin Level 3.7 g/dL (3.5-5.1); Alkaline Phosphatase 63 U/L (38-126); Anion Gap 8 mmol/L (4-12); Aspartate Amino Transferase 30 U/L (17-59); Bilirubin,Total 0.8 mg/dL (0.2-1.3); Blood Urea Nitrogen 48 mg/dL (9-20); Calcium 10.0 mg/dL (8.4-10.2); Carbon Dioxide 31 mmol/L (22-30); Chloride 92 mmol/L (98-107); Estimated CRCL calculation 34 ml/min; Estimated Glomerular Filt Rate 26; Glucose 97 mg/dL (65-110); Magnesium 2.6 mg/dL (1.6-2.3); Potassium 4.0 mmol/L (3.4-5.0); Sodium 131 mmol/L (137-145); Total Protein 6.1 g/dL (6.3-8.2)
[2025-03-30 08:38] LABS: Anisocytosis 1+; Hypochromasia Occasional; Ovalocytes 1+; Schistocytes None Seen
[2025-03-30] MEDS: DOCUSATE SODIUM 100 MG CAPSULE PO ×2 (08:56→20:39)
[2025-03-30] MEDS: acetaZOLAMIDE TAB 250 MG TABLET PO (08:56)
[2025-03-30] MEDS: BUMETANIDE 1 MG TABLET PO ×2 (08:57→16:47)
[2025-03-30] MEDS: EMPAGLIFLOZIN 10 MG TABLET PO (08:57)
[2025-03-30] MEDS: MIDODRINE HCL 2.5 MG TABLET 5 MG PO ×3 (08:57→16:47)
[2025-03-30] MEDS: FERROUS SULFATE 325 MG TABLET PO ×2 (08:57→16:48)
[2025-03-30] MEDS: TAMSULOSIN HCL 0.4 MG CAPSULE PO (08:57)
[2025-03-30] MEDS: POTASSIUM CHLORIDE 10 MEQ ER TABLET PO ×2 (08:57→16:47)
[2025-03-30] MEDS: SPIRONOLACTONE 25 MG TABLET PO (08:57)
[2025-03-30] MEDS: FAMOTIDINE 20 MG TABLET PO ×2 (08:57→20:39)
[2025-03-30] MEDS: APIXABAN 5 MG TABLET PO ×2 (08:58→20:39)
[2025-03-30] MEDS: METOPROLOL TARTRATE 50 MG TAB PO ×2 (08:58→20:40)
[2025-03-30] MEDS: EUCERIN CREAM 120 GM JAR 1 APPLIC TOPICAL (08:58)
[2025-03-30] MEDS: ACETAMINOPHEN 500 MG TABLET PO ×2 (09:06→20:44)
--- NOTE | 2025-03-30 14:30 | P.PNNP_ITS ---
Progress Note: A&P Assessment and Plan (1) Acute kidney injury: Code(s): N17.9 - Acute kidney failure, unspecified Status: Resolved Assessment and Plan: * slight worsening Over the week and about the same today as it was yesterday. * as noted by labs on admission (creatinine of 2.84mg/dl) * evaluation to date noted: * urine electrolytes (FeUrea) are prerenal * mild proteinuria * CPK low * UA suggestive of infection - but urine culture negative * based on evidence to date, likely secondary to significant renal venous hypertension - his improvement in renal function/creatinine with diuresis supports this etiology * along with swelling in his LEs and scrotum, he likely has developed swelling in his kidneys * this is further complicated by soft BPs leading to chronic prerenal azotemia (a variation of cardiorenal syndrome) * on midodrine for BP support with ongoing diuresis * Currently getting bumetanide 1mg p.o. b.i.d., spironolactone 25 daily. Metolazone on hold. * Yesterday Intake/ output about even. Will restart metolazone twice a week (2) Stage 3b chronic kidney disease: Code(s): N18.32 - Chronic kidney disease, stage 3b Status: Chronic Assessment and Plan: * baseline creatinine runs ~ 1.7 - 2.3mg/dl in the last year or so * however, has been as low as 1.6mg/dl and as high as 2.7mg/dl in association with acute hospitalizations * this causes him to fluctuate between CKD stage 3b and stage 4 * secondary to hypertensive nephrosclerosis, vascular disease, as well as the necessity of chronic diuretic therapy to maintain his volume status along age- related change * has required acute [employer]/dialysis x 2 in the past for JENA on CKD in association with volume/fluid overload unresponsive to diuretic therapy (3) Anasarca: Code(s): R60.1 - Generalized edema Status: Acute Assessment and Plan: * chronic issue with recurrent exacerbations as noted by his numerous acute hospitalizations * this is felt to be secondary to his severe right-sided heart failure with some possible contributions from his AMELIA * continue diuresis (IV bumex, metolazone, acetazolamide, and spironolactone) * almost 30L negative since admission * given rise in creatinine in association with hand/thigh cramping (a symptom he has had with overdiuresis), * Currently on oral Bumex and spironolactone. * Metolazone and acetazolamide are on hold (4) Acute on chronic diastolic heart failure: Code(s): I50.33 - Acute on chronic diastolic (congestive) heart failure Status: Acute Assessment and Plan: * as noted by symptoms of shortness of breath and #3 * recent Echo (03/20) noted: * left ventricular systolic function is normal, estimated at 55 - 60% * left ventricular diastolic function is abnormal * mild tricuspid valve regurgitation * no pulmonary hypertension, estimated pulmonary arterial systolic pressure is 30 mmHg * Cardiology recommendations noted * continue diuresis but transition to oral diuretics with further medication changes noted * on midodrine for BP support with diuresis * continue Jardiance * back on bumetanide metolazone, and spironolactone (5) Anemia: Qualifiers: Anemia type: due to chronic kidney disease Chronic kidney disease stage: stage 3 (moderate) Chronic kidney disease stage 3 subtype: unspecified whether 3a or 3b Qualified Code(s): N18.30 - Chronic kidney disease, stage 3 unspecified; D63.1 - Anemia in chronic kidney disease Code(s): D64.9 - Anemia, unspecified Status: Acute Assessment and Plan: * partly due to CKD * anemia studies with iron deficiency * H/H doing well in the 11s and 12s (6) Hyponatremia: Code(s): E87.1 - Hypo-osmolality and hyponatremia Status: Chronic Assessment and Plan: * due to diuretics and heart failure * level is stable (7) Atrial fibrillation: Qualifiers: Atrial fibrillation type: longstanding persistent Qualified Code(s): I48.11 - Longstanding persistent atrial fibrillation Code(s): I48.91 - Unspecified atrial fibrillation Status: Chronic Assessment and Plan: * heart rate 65 * on metoprolol * on eliquis (8) AMELIA (obstructive sleep apnea): Code(s): G47.33 - Obstructive sleep apnea (adult) (pediatric) Status: Chronic Assessment and Plan: * continue CPAP at night and with rest Will continue to follow. Subjective Date/time seen: 03/30/25 14:30 Interval history: patient is alert. He feels better. Swelling is better. No shortness of breath. Exam Narrative: General: large but WD/WN male in NAD Heart: normal S1 and S2; no rub Or gallop Lungs: clear bilateral Abdomen: obese but soft, nontender, nondistended, positive bowel sounds Extremities: no cyanosis or clubbing; 1+ edema;Scrotum is much better. Skin: chronic changes apparent in LLE Objective Data Vital Signs Vital Signs: Vital Signs - 24 hr 03/29/25 20:00 03/29/25 21:05 03/29/25 21:43 Temperature Pulse Rate 69 82 Respiratory Rate Blood Pressure Pulse Oximetry 94 Oxygen Delivery Room Air Autopap 03/29/25 22:00 03/30/25 01:18 03/30/25 03:44 Temperature 98.3 F Pulse Rate 64 65 66 Respiratory Rate 18 Blood Pressure 119/71 Pulse Oximetry 98 94 93 Oxygen Delivery Autopap Autopap 03/30/25 05:36 03/30/25 08:55 03/30/25 08:58 Temperature 98 F Pulse Rate 64 66 Respiratory Rate 16 Blood Pressure 107/72 Pulse Oximetry 99 Oxygen Delivery Room Air Intake/Output Intake/Output: Intake & Output 03/27/25 03/28/25 03/29/25 03/30/25 23:59 23:59 23:59 23:59 Intake Total 460 094 7230 990 Output Total 3300 1900 1850 1050 Balance -2380 -1050 20 -60 Meds/Results Medications: Active Medications Generic Name Dose Route Start Last Admin Trade Name Freq PRN Reason Stop Dose Admin Acetaminophen 500 mg 03/18/25 22:39 03/30/25 09:06 Acetaminophen 500 Mg Tablet PO 500 mg Q6H PRN Administration fever or pain Acetazolamide 250 mg 03/19/25 08:00 03/30/25 08:56 Acetazolamide Tab 250 Mg Tablet PO 250 mg DAILY@0800 ANGELA Administration Allopurinol 100 mg 03/19/25 08:00 03/30/25 08:57 Allopurinol 100 Mg Tablet PO 100 mg DAILY@0800 ANGELA Administration Apixaban 5 mg 03/18/25 22:45 03/30/25 08:58 Apixaban 5 Mg Tablet PO 5 mg Q12HR ANGELA Administration Bumetanide 1 mg 03/29/25 09:00 03/30/25 08:57 Bumetanide 1 Mg Tablet PO 1 mg BID ANGELA Administration Calcitriol 0.25 mcg 03/19/25 09:00 03/29/25 09:44 Calcitriol 0.25 Mcg Capsule PO 0.25 mcg [facility] Administration Docusate Sodium 100 mg 03/19/25 09:00 03/30/25 08:56 Docusate Sodium 100 Mg Capsule PO 100 mg Q12HR ANGELA Administration Empagliflozin 10 mg 03/19/25 10:35 03/30/25 08:57 Empagliflozin 10 Mg Tablet PO 10 mg DAILY [facility] Administration Ergocalciferol 1,250 mcg 03/22/25 09:00 03/29/25 09:18 Ergocalciferol (Vitamin D2) 1,250 Mcg (50,000 Units) Capsule PO 1,250 mcg WEEKLY [facility] Administration Ergocalciferol 1,250 mcg 03/22/25 09:00 03/29/25 10:20 Ergocalciferol (Vitamin D2) 1,250 Mcg (50,000 Units) Capsule PO Not Given WEEK[facility] Famotidine 20 mg 03/20/25 21:00 03/30/25 08:57 Famotidine 20 Mg Tablet PO 20 mg Q12HR ANGELA Administration Ferrous Sulfate 325 mg 03/19/25 09:00 03/30/25 08:57 Ferrous Sulfate 325 Mg Tablet PO 325 mg BID [facility] Administration Fluticasone Propionate 1 spray 03/18/25 22:39 Fluticasone Propionate 0.05% Na Spr 16 Gm Btl (*Bkc) NASAL DAILY PRN Congestion Gabapentin 300 mg 03/20/25 14:00 03/30/25 13:12 Gabapentin 300 Mg Capsule PO 300 mg Q8HR ANGELA Administration Hyoscyamine 0.0625 mg 03/19/25 13:48 03/20/25 09:56 Hyoscyamine Sulfate 0.0625 Mg Tablet PO 0.0625 mg Q4H PRN Administration Bladder Spasm Levofloxacin 250 mg 03/25/25 11:00 03/30/25 11:29 Levofloxacin 250 Mg Tablet PO 250 mg Q24H ANGELA Administration Levothyroxine Sodium 200 mcg 03/19/25 06:30 03/30/25 05:34 Levothyroxine Sodium 100 Mcg Tablet PO 200 mcg DAILY@0630 ANGELA Administration Metolazone 2.5 mg 03/28/25 09:00 03/28/25 09:31 Metolazone 2.5 Mg Tablet PO 2.5 mg On Hold: 03/28/25 09:38 QAM ANGELA Administration Metoprolol Tartrate 50 mg 03/19/25 09:00 03/30/25 08:58 Metoprolol Tartrate 50 Mg Tab PO 50 mg Q12HR ANGELA Administration Midodrine 5 mg 03/20/25 13:00 03/30/25 13:12 Midodrine Hcl 2.5 Mg Tablet PO 5 mg TID ANGELA Administration Multi-Ingred Cream/Lotion/Oil/Oint 1 applic 03/19/25 09:00 03/30/25 08:58 Eucerin Cream 120 Gm Jar TOPICAL 1 applic DAILY ANGELA Administration Oxybutynin Chloride 5 mg 03/19/25 12:30 03/30/25 08:56 Oxybutynin Chloride 5 Mg Tablet PO 5 mg TID PRN Administration Bladder Spasm Polyethylene Glycol 17 gm 03/20/25 09:00 03/30/25 08:58 Polyethylene Glycol 3350 17 Gm Powd.Pack PO 17 gm DAILY ANGELA Administration Potassium Chloride 10 meq 03/29/25 17:00 03/30/25 08:57 Potassium Chloride 10 Meq Er Tablet PO 10 meq BIDWM ANGELA Administration Spironolactone 25 mg 03/19/25 09:00 03/30/25 08:57 Spironolactone 25 Mg Tablet PO 25 mg DAILY ANGELA Administration Tamsulosin HCl 0.4 mg 03/19/25 09:00 03/30/25 08:57 Tamsulosin Hcl 0.4 Mg Capsule PO 0.4 mg QAM ANGELA Administration Radiology Results: ITS Impressions Chest X-Ray 03/18/25 13:29 IMPRESSION: 1. No acute cardiopulmonary findings given portable technique. Consider PA and lateral films with deep inspiration. Labs Labs: Laboratory Results - last 24 hr 03/30/25 05:46 WBC 9.2 RBC 4.73 Hgb 12.2 L Hct 42.7 MCV 90.3 MCH 25.8 L MCHC 28.6 L RDW 18.5 H Plt Count 351 MPV 10.7 H Immature Gran % (Auto) 0.8 H Neut % (Auto) 74.7 H Lymph % (Auto) 7.8 L [place] % (Auto) 8.7 H Eos % (Auto) 6.9 H Baso % (Auto) 1.1 Lymph # (Auto) 0.72 L [place] # (Auto) 0.8 H Eos # (Auto) 0.6 H Baso # (Auto) 0.1 Abs Immat Gran (auto) 0.07 H Absolute Neuts (auto) 6.9 H Absolute Nucleated RBC 0.000 Band Neutrophils % Not Reportable Nucleated RBC % 0.0 Platelet Estimate Adequate Hypochromasia Occasional Anisocytosis 1+ Ovalocytes 1+ Schistocytes None seen Sodium 131 L Potassium 4.0 Chloride 92 L Carbon Dioxide 31 H Anion Gap 8 BUN 48 H Creatinine 2.40 H Estim Creat Clear Calc 34 Estimated GFR 26 L Glucose 97 Calcium 10.0 Phosphorus 6.2 H Magnesium 2.6 H Total Bilirubin 0.8 AST 30 ALT 11 Alkaline Phosphatase 63 Total Protein 6.1 L Albumin 3.7
--- NOTE | 2025-03-30 14:34 | PM.IMPN2 ---
Assessment and Plan Assessment and Plan (1) Acute on chronic diastolic heart failure: Code(s): I50.33 - Acute on chronic diastolic (congestive) heart failure Status: Acute Assessment and Plan: -echo on 12/17/2024 was read as left ventricular systolic function is normal estimated at 65-70, left ventricular diastolic function is abnormal. -patient 2+ the 3+ pitting edema to left lower extremity. -IV Bumex has been ordered. The patient got a dose of Lasix in the emergency room. Monitor renal function closely. Continue with potassium supplement as well. -continue with Aldactone. -continue with Zaroxolyn -cardiology consulted: Appreciate nephrology input. Midodrine was added to help with BP Decrease Bumex to 1mg IV BID Continue metolazone Continue spironolactone Continue metoprolol with holding parameters (hold for SBP<110mm Hg) Continue empagliflozin Continue Eliquis for anticoagulation for A fib/flutter Check weight, ins and outs, and renal function daily Check and replace electrolytes to keep K>4 and Mg>2 Monitor on telemetry 03/22 - cardiology, DR Kirk was not sure why pt on minoxidil- so i was held- will let cardiology decide if pt needs to be on it or not -i/o reviewed, he is diuresing well. 03/23 - cr/bun 2. bumex 2gm iv iv push bid, metolazone 5 mg -continue Jardiance 10 mg p.o. daily, spironolactone 25 mg p.o. daily -on azetazolamide 250mg PO daily -require midodrine 5 mg p.o. t.i.d. while being diuresed 03/24 Getting slightly better today. Continue diuresis. 03/25/2025 Gradually improving, will contnue current treatment, nephrology on board. 03/26/2025: Weight coming down. On Bumex 2 mg IV b.i.d. metolazone spironolactone. 03/27/2025 Bumex changed to oral (2) Cardiac enzymes elevated: Code(s): R74.8 - Abnormal levels of other serum enzymes Status: Acute Assessment and Plan: -cardiology has been consulted. -troponin 0.057, 0.061. Repeat troponin in the a.m.. -the patient is not short of breath or having any chest pain. -this could be related to his CHF and are chronic renal failure. (3) UTI (urinary tract infection): Code(s): N39.0 - Urinary tract infection, site not specified Status: Acute Assessment and Plan: -he was started on Rocephin. Swith to Po antibiotics to levofloxacin 250 mg every 24 hour (4) Atrial fibrillation: Qualifiers: Atrial fibrillation type: longstanding persistent Qualified Code(s): I48.11 - Longstanding persistent atrial fibrillation Code(s): I48.91 - Unspecified atrial fibrillation Status: Chronic Assessment and Plan: -the patient is currently in sinus rhythm. -continue with Eliquis -continue with metoprolol -rate is controlled at this time. - bleeding precautions (5) Venous stasis dermatitis: Code(s): I87.2 - Venous insufficiency (chronic) (peripheral) Status: Acute Assessment and Plan: -continue with lanolin oil patient has a right [id number] amputation that is fairly new from a couple months ago. (6) Peripheral vascular disease: Code(s): I73.9 - Peripheral vascular disease, unspecified Status: Acute Assessment and Plan: -the patient is on apixaban. (7) Dyslipidemia: Code(s): E78.5 - Hyperlipidemia, unspecified Status: Acute Assessment and Plan: -continue with home medications. The patient does not appear to be on any statins for unknown reasons. (8) Hypothyroidism: Qualifiers: Hypothyroidism type: acquired Qualified Code(s): E03.9 - Hypothyroidism, unspecified Code(s): E03.9 - Hypothyroidism, unspecified Status: Chronic Assessment and Plan: -continue with levothyroxine (9) CKD (chronic kidney disease) stage 3, GFR 30-59 ml/min: Qualifiers: Chronic kidney disease stage 3 subtype: stage 3b (GFR 30-44) Qualified Code(s): N18.32 - Chronic kidney disease, stage 3b Code(s): N18.3 - Chronic kidney disease, stage 3 (moderate) Status: Acute Assessment and Plan: -creatinine 2.84 which is slightly above his baseline of 1.9-2.8. His GFR is 22 which is slightly lower than his baseline of 31-34 -monitor BMP daily. -may consider Nephrology consult if labs worsen with diuretics. -nephrology consulted: at this point will give him midodrine to get the blood pressure back up, and continue diuretics. I will increase the metolazone to5mg once a day, change his bumetanide to2mg IV twice a day, and continue the spironolactone and acetazolamide 03/24 continue diuresing monitor daily labs 03/25- continue diuresing, midodrine to help wit BP slowly improving but not at his baseline yet Dr Al is fooliowng (10) Anemia of chronic disease: Code(s): D63.8 - Anemia in other chronic diseases classified elsewhere Status: Acute Assessment and Plan: -the patient is slightly above his baseline. This appears to be stable. Most likely secondary to his chronic renal failure. - monitor (11) AMELIA (obstructive sleep apnea): Code(s): G47.33 - Obstructive sleep apnea (adult) (pediatric) Status: Chronic Assessment and Plan: The patient brought his own CPAP machine, he may continue to use this . (12) Gout: Qualifiers: Gout site: multiple sites Gout etiology: unspecified cause Chronicity: chronic Qualified Code(s): M1A.09X0 - Idiopathic chronic gout, multiple sites, without tophus (tophi) Code(s): M10.9 - Gout, unspecified Status: Acute Assessment and Plan: Stable on current meds (13) Rosacea: Code(s): L71.9 - Rosacea, unspecified Status: Acute Assessment and Plan: Stable on current meds Plan The patient has chronic hyponatremia. Most likely secondary to his CHF with 3rd spacing. PT OT to see to transition to home with home health Subjective Date/time seen: 03/30/25 14:34 Interval history: No overnight events. No new complaints. Cramping still there. Labs reviewed. Review of Systems Constitutional: Constitutional: Reports as per HPI and Reports no additional constitutional complaints Eyes: Eyes: Reports as per HPI and Reports no additional eye complaints ENT: Reports system reviewed and no additional complaints, except as documented and Reports Normal hearing present Cardiovascular: Cardiovascular: Reports no additional cardiovascular complaints Respiratory: Respiratory: Reports as per HPI and Reports no additional respiratory complaints Gastrointestinal: Gastrointestinal: Reports as per HPI and Reports no additional gastrointestinal complaints Musculoskeletal: Musculoskeletal: Reports no additional musculoskeletal complaints Integumentary/Breasts: Skin/Breast: Reports system reviewed and no additional complaints, except as docu Neurologic: Reports system reviewed and no additional complaints, except as documented and Reports Normal hearing present Psychiatric: Psychiatric: Reports no additional psychiatric complaints and Reports as per HPI Hematologic/Lymphatic: Hematologic/Lymphatic: Reports no additional hematologic/lymphatic complaints Allergic/Immunologic: Allergic/Immunologic: Reports no additional allergic/immunologic complaints Exam Const: General: cooperative, comfortable, no acute distress, well developed, awake, Physically active, average body habitus and well nourished Nutritional Appearance: average body habitus and well nourished Orientation/consciousness: oriented to person, oriented to place, oriented to time and patient oriented x3 Limitations: no limitations HENMT: Head: normal to inspection, No palpable skull fracture present, normocephalic, atraumatic and abrasion Ears: hearing grossly normal bilaterally Eyes: General: appearance normal, both eyes and all related structures Alignment and Position: alignment normal Periorbital: periorbital findings normal Eyelids: eyelids normal Neck: Neck: normal visual inspection, full ROM and no lymphadenopathy Chest: Chest palpation & inspection: normal inspection of the chest Resp: Effort & Inspection: normal respiratory effort Auscultation: clear to auscultation bilaterally Cardio: Palpation: normal PMI Rate: regular rate Rhythm: regular rhythm Heart sounds: S1 normal heart sound present and S2 normal heart sound present GI: Inspection: normal to inspection Auscultation: normal bowel sounds : General: Yes no CVA tenderness Back/Spine/Pelvis: Back: no CVA tenderness Cervical Spine: cervical ROM normal Skin: General skin exam: normal color Lesions: no lesions Rashes: no rashes Trauma: no lacerations or abrasions Wounds: no wounds Hair: normal Nails: normal Neuro: General: oriented to person, oriented to place, oriented to time and patient oriented x3 Cranial nerves: Yes Normal hearing present Cognition (Neuro): normal cognition Speech: normal speech Extrem: General: normal to inspection and edema Right upper extremity: normal to inspection and shoulder/upper arm Left upper extremity: normal to inspection and shoulder/upper arm Psych: Appearance: grossly normal Mental Status: mental status grossly normal Speech and movement: Normal speech and movement present Affect: normal affect Attitude: cooperative Thought process: Normal thought process present Insight: Good insight present (Psych) Judgement: Good judgement present (Psych) Objective Data Vital Signs Vital Signs: Vital Signs - 24 hr 03/29/25 20:00 03/29/25 21:05 03/29/25 21:43 Temperature Pulse Rate 69 82 Respiratory Rate Blood Pressure Pulse Oximetry 94 Oxygen Delivery Room Air Autopap 03/29/25 22:00 03/30/25 01:18 03/30/25 03:44 Temperature 98.3 F Pulse Rate 64 65 66 Respiratory Rate 18 Blood Pressure 119/71 Pulse Oximetry 98 94 93 Oxygen Delivery Autopap Autopap 03/30/25 05:36 03/30/25 08:55 03/30/25 08:58 Temperature 98 F Pulse Rate 64 66 Respiratory Rate 16 Blood Pressure 107/72 Pulse Oximetry 99 Oxygen Delivery Room Air Intake/Output Intake/Output: Intake & Output 03/27/25 03/28/25 03/29/25 03/30/25 23:59 23:59 23:59 23:59 Intake Total 200 044 4246 990 Output Total 3300 1900 1850 1050 Balance -2380 -1050 20 -60 Meds/Results Medications: Active Medications Generic Name Dose Route Start Last Admin Trade Name Freq PRN Reason Stop Dose Admin Acetaminophen 500 mg 03/18/25 22:39 03/30/25 09:06 Acetaminophen 500 Mg Tablet PO 500 mg Q6H PRN Administration fever or pain Acetazolamide 250 mg 03/19/25 08:00 03/30/25 08:56 Acetazolamide Tab 250 Mg Tablet PO 250 mg DAILY@0800 [facility] Administration Allopurinol 100 mg 03/19/25 08:00 03/30/25 08:57 Allopurinol 100 Mg Tablet PO 100 mg DAILY@0800 [facility] Administration Apixaban 5 mg 03/18/25 22:45 03/30/25 08:58 Apixaban 5 Mg Tablet PO 5 mg Q12HR [facility] Administration Bumetanide 1 mg 03/29/25 09:00 03/30/25 08:57 Bumetanide 1 Mg Tablet PO 1 mg BID [facility] Administration Calcitriol 0.25 mcg 03/19/25 09:00 03/29/25 09:44 Calcitriol 0.25 Mcg Capsule PO 0.25 mcg MoWeFr [facility] Administration Docusate Sodium 100 mg 03/19/25 09:00 03/30/25 08:56 Docusate Sodium 100 Mg Capsule PO 100 mg Q12HR [facility] Administration Empagliflozin 10 mg 03/19/25 10:35 03/30/25 08:57 Empagliflozin 10 Mg Tablet PO 10 mg DAILY [facility] Administration Ergocalciferol 1,250 mcg 03/22/25 09:00 03/29/25 09:18 Ergocalciferol (Vitamin D2) 1,250 Mcg (50,000 Units) Capsule PO 1,250 mcg WEEKLY [facility] Administration Ergocalciferol 1,250 mcg 03/22/25 09:00 03/29/25 10:20 Ergocalciferol (Vitamin D2) 1,250 Mcg (50,000 Units) Capsule PO Not Given WEEKLY [facility] Famotidine 20 mg 03/20/25 21:00 03/30/25 08:57 Famotidine 20 Mg Tablet PO 20 mg Q12HR [facility] Administration Ferrous Sulfate 325 mg 03/19/25 09:00 03/30/25 08:57 Ferrous Sulfate 325 Mg Tablet PO 325 mg BID [facility] Administration Fluticasone Propionate 1 spray 03/18/25 22:39 Fluticasone Propionate 0.05% Na Spr 16 Gm Btl (*Bkc) NASAL DAILY PRN Congestion Gabapentin 300 mg 03/20/25 14:00 03/30/25 13:12 Gabapentin 300 Mg Capsule PO 300 mg Q8HR [facility] Administration Hyoscyamine 0.0625 mg 03/19/25 13:48 03/20/25 09:56 Hyoscyamine Sulfate 0.0625 Mg Tablet PO 0.0625 mg Q4H PRN Administration Bladder Spasm Levofloxacin 250 mg 03/25/25 11:00 03/30/25 11:29 Levofloxacin 250 Mg Tablet PO 250 mg Q24H [facility] Administration Levothyroxine Sodium 200 mcg 03/19/25 06:30 03/30/25 05:34 Levothyroxine Sodium 100 Mcg Tablet PO 200 mcg DAILY@0630 [facility] Administration Metolazone 2.5 mg 03/28/25 09:00 03/28/25 09:31 Metolazone 2.5 Mg Tablet PO 2.5 mg On Hold: 03/28/25 09:38 QAM [facility] Administration Metoprolol Tartrate 50 mg 03/19/25 09:00 03/30/25 08:58 Metoprolol Tartrate 50 Mg Tab PO 50 mg Q12HR [facility] Administration Midodrine 5 mg 03/20/25 13:00 03/30/25 13:12 Midodrine Hcl 2.5 Mg Tablet PO 5 mg TID [facility]A Administration Multi-Ingred Cream/Lotion/Oil/Oint 1 applic 03/19/25 09:00 03/30/25 08:58 Eucerin Cream 120 Gm Jar TOPICAL 1 applic DAILY [facility] Administration Oxybutynin Chloride 5 mg 03/19/25 12:30 03/30/25 08:56 Oxybutynin Chloride 5 Mg Tablet PO 5 mg TID PRN Administration Bladder Spasm Polyethylene Glycol 17 gm 03/20/25 09:00 03/30/25 08:58 Polyethylene Glycol 3350 17 Gm Powd.Pack PO 17 gm DAILY [facility] Administration Potassium Chloride 10 meq 03/29/25 17:00 03/30/25 08:57 Potassium Chloride 10 Meq Er Tablet PO 10 meq BIDWM [facility] Administration Spironolactone 25 mg 03/19/25 09:00 03/30/25 08:57 Spironolactone 25 Mg Tablet PO 25 mg DAILY [facility] Administration Tamsulosin HCl 0.4 mg 03/19/25 09:00 03/30/25 08:57 Tamsulosin Hcl 0.4 Mg Capsule PO 0.4 mg QAM ANGELA Administration Radiology Results: ITS Impressions Chest X-Ray 03/18/25 13:29 IMPRESSION: 1. No acute cardiopulmonary findings given portable technique. Consider PA and lateral films with deep inspiration. Labs Labs: Laboratory Results - last 24 hr 03/30/25 05:46 WBC 9.2 RBC 4.73 Hgb 12.2 L Hct 42.7 MCV 90.3 MCH 25.8 L MCHC 28.6 L RDW 18.5 H Plt Count 351 MPV 10.7 H Immature Gran % (Auto) 0.8 H Neut % (Auto) 74.7 H Lymph % (Auto) 7.8 L [place] % (Auto) 8.7 H Eos % (Auto) 6.9 H Baso % (Auto) 1.1 Lymph # (Auto) 0.72 L [place] # (Auto) 0.8 H Eos # (Auto) 0.6 H Baso # (Auto) 0.1 Abs Immat Gran (auto) 0.07 H Absolute Neuts (auto) 6.9 H Absolute Nucleated RBC 0.000 Band Neutrophils % Not Reportable Nucleated RBC % 0.0 Platelet Estimate Adequate Hypochromasia Occasional Anisocytosis 1+ Ovalocytes 1+ Schistocytes None seen Sodium 131 L Potassium 4.0 Chloride 92 L Carbon Dioxide 31 H Anion Gap 8 BUN 48 H Creatinine 2.40 H Estim Creat Clear Calc 34 Estimated GFR 26 L Glucose 97 Calcium 10.0 Phosphorus 6.2 H Magnesium 2.6 H Total Bilirubin 0.8 AST 30 ALT 11 Alkaline Phosphatase 63 Total Protein 6.1 L Albumin 3.7 Quality VTE Prophylaxis VTE prophylaxis: pharmacologic ordered
[2025-03-30] MEDS: WATER FOR IRRIGATION, STERILE 1,000 ML BOTTLE 1000 ML (18:09)
[2025-03-31] MEDS: GABAPENTIN 300 MG CAPSULE PO ×2 (05:45→13:40)
[2025-03-31] MEDS: LEVOTHYROXINE SODIUM 100 MCG TABLET 200 MCG PO (05:45)
[2025-03-31 06:00] VITALS: BP 111/49; PULSE 64; RESP 18; TEMP 36.3; O2SAT 99
[2025-03-31 06:24] LABS: Hematocrit 42.2 % (42.0-52.0); Hemoglobin 12.0 g/dL (14.0-18.0); Immature Granulocyte Percent A 1.1 % (0-0.5); Lymphocytes Absolute Auto 0.78 K/mm3 (0.9-3.2); Mean Corpuscular HGB Conc 28.4 g/dl (32-36); Mean Corpuscular Hemoglobin 25.5 pg (26-34); Mean Corpuscular Volume 89.6 fl (80-100); Nucleated Red Blood Cells Absolute Auto 0.000 K/mm3 (0.0-0.012); Nucleated Red Blood Cells Perc 0.0 % (0.0-0.2); Platelet Count Result 336 k/mm3 (150-375); Red Blood Count 4.71 M/mm3 (4.6-6.20); White Blood Count 9.2 K/mm3 (4.5-10.0)
[2025-03-31 06:35] LABS: Alanine Aminotransferase 14 U/L (6-50); Albumin Level 4.0 g/dL (3.5-5.1); Alkaline Phosphatase 68 U/L (38-126); Anion Gap 10 mmol/L (4-12); Aspartate Amino Transferase 22 U/L (17-59); Bilirubin,Total 0.8 mg/dL (0.2-1.3); Blood Urea Nitrogen 51 mg/dL (9-20); Calcium 9.4 mg/dL (8.4-10.2); Carbon Dioxide 30 mmol/L (22-30); Chloride 92 mmol/L (98-107); Estimated CRCL calculation 29 ml/min; Estimated Glomerular Filt Rate 22; Glucose 104 mg/dL (65-110); Magnesium 2.8 mg/dL (1.6-2.3); Potassium 3.5 mmol/L (3.4-5.0); Sodium 132 mmol/L (137-145); Total Protein 6.7 g/dL (6.3-8.2)
[2025-03-31 07:10] LABS: Anisocytosis 1+; Hypochromasia 1+; Schistocytes None Seen
[2025-03-31] MEDS: DOCUSATE SODIUM 100 MG CAPSULE PO (08:10)
[2025-03-31] MEDS: BUMETANIDE 1 MG TABLET PO ×2 (08:10→16:56)
[2025-03-31] MEDS: FERROUS SULFATE 325 MG TABLET PO ×2 (08:10→16:58)
[2025-03-31] MEDS: acetaZOLAMIDE TAB 250 MG TABLET PO (08:10)
[2025-03-31] MEDS: MIDODRINE HCL 2.5 MG TABLET 5 MG PO ×3 (08:10→16:55)
[2025-03-31] MEDS: TAMSULOSIN HCL 0.4 MG CAPSULE PO (08:10)
[2025-03-31 08:11] VITALS: PULSE 66
[2025-03-31] MEDS: APIXABAN 5 MG TABLET PO (08:11)
[2025-03-31] MEDS: POTASSIUM CHLORIDE 10 MEQ ER TABLET PO ×2 (08:11→16:55)
[2025-03-31] MEDS: METOPROLOL TARTRATE 50 MG TAB PO (08:11)
[2025-03-31] MEDS: EMPAGLIFLOZIN 10 MG TABLET PO (08:12)
[2025-03-31] MEDS: FAMOTIDINE 20 MG TABLET PO (08:12)
[2025-03-31] MEDS: SPIRONOLACTONE 25 MG TABLET PO (08:12)
[2025-03-31] MEDS: EUCERIN CREAM 120 GM JAR 1 APPLIC TOPICAL (08:13)
[2025-03-31] MEDS: ACETAMINOPHEN 500 MG TABLET PO (08:15)
--- NOTE | 2025-03-31 08:28 | P.PNCA_ITS ---
<Statement entered by Eric Nowak MD - 03/31/25 13:00> This documentation has been reviewed and approved. 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 daily -on azetazolamide 250mg PO daily -remains on midodrine 5 mg TID. Acute on chronic right ventricular heart failure -significantly volume overloaded with pitting edema up to his abdomen and involving his scrotum-has resolved -continue with oral bumex 1mg BID at discharge. Paroxysmal atrial fibrillation -controlled on Lopressor 50 mg p.o. b.i.d. -continue Eliquis 5 mg p.o. b.i.d. Possible dc home later today Will follow up with Dr. Arizmendi in the next 4 weeks or sooner if needed. Subjective Date/time seen: 03/31/25 08:28 Interval history: Date of Service 03/31/25: patient is sitting up in bed and is hopeful he will be going home today. reports edema has resolved. Denies any shortness of breath or chest pain at this time. Review of Systems Review of Systems: All systems reviewed & are unremarkable except as noted in HPI and below Exam Narrative: General: Alert oriented x3, no acute distress Neck: Supple Chest: Bilateral clear to auscultation, no rales or rhonchi Cardiac: S1, S2 +, regular rate, regular rhythm, no murmurs or rubs Extremities: R BKA with stump swelling, LLE trace edema Neurologic: Alert and oriented x3, no focal neurological deficits Objective Data Vital Signs Vital Signs: Vital Signs - 24 hr 12/30/25 08:55 03/30/25 08:58 03/30/25 14:00 Temperature 36.7 C Pulse Rate 66 64 Respiratory Rate 16 Blood Pressure 120/72 Pulse Oximetry 96 Oxygen Delivery Room Air Fraction of Inspired Oxygen 03/30/25 17:30 03/30/25 20:00 03/30/25 20:32 Temperature 36.9 C Pulse Rate 66 75 75 Respiratory Rate 16 16 Blood Pressure 104/58 L 107/61 Pulse Oximetry 98 96 96 Oxygen Delivery Room Air Fraction of Inspired Oxygen 21 03/30/25 20:40 03/31/25 06:00 03/31/25 08:11 Temperature 36.3 C L Pulse Rate 75 64 66 Respiratory Rate 18 Blood Pressure 111/49 L Pulse Oximetry 99 Oxygen Delivery Fraction of Inspired Oxygen Intake/Output Intake/Output: Intake & Output 03/28/25 03/29/25 03/30/25 03/31/25 23:59 23:59 23:59 23:59 Intake Total 850 1870 1530 Output Total 1900 1850 2030 1150 Balance -1050 20 -500 -1150 Meds/Results Medications: Active Medications Generic Name Dose Route Start Last Admin Trade Name Freq PRN Reason Stop Dose Admin Acetaminophen 500 mg 03/18/25 22:39 03/31/25 08:15 Acetaminophen 500 Mg Tablet PO 500 mg Q6H PRN Administration fever or pain Acetazolamide 250 mg 03/19/25 08:00 03/31/25 08:10 Acetazolamide Tab 250 Mg Tablet PO 250 mg DAILY@0800 [facility] Administration Allopurinol 100 mg 03/19/25 08:00 03/31/25 08:10 Allopurinol 100 Mg Tablet PO 100 mg DAILY@0800 [facility] Administration Apixaban 5 mg 03/18/25 22:45 03/31/25 08:11 Apixaban 5 Mg Tablet PO 5 mg Q12HR [facility] Administration Bumetanide 1 mg 03/29/25 09:00 03/31/25 08:10 Bumetanide 1 Mg Tablet PO 1 mg BID [facility] Administration Calcitriol 0.25 mcg 03/19/25 09:00 03/31/25 08:10 Calcitriol 0.25 Mcg Capsule PO 0.25 mcg MoWeFr [facility] Administration Docusate Sodium 100 mg 03/19/25 09:00 03/31/25 08:10 Docusate Sodium 100 Mg Capsule PO 100 mg Q12HR [facility] Administration Empagliflozin 10 mg 03/19/25 10:35 03/31/25 08:12 Empagliflozin 10 Mg Tablet PO 10 mg DAILY [facility] Administration Ergocalciferol 1,250 mcg 03/22/25 09:00 03/29/25 09:18 Ergocalciferol (Vitamin D2) 1,250 Mcg (50,000 Units) Capsule PO 1,250 mcg WEEKLY [facility] Administration Ergocalciferol 1,250 mcg 03/22/25 09:00 03/29/25 10:20 Ergocalciferol (Vitamin D2) 1,250 Mcg (50,000 Units) Capsule PO Not Given WEEKLY ANG[facility]A Famotidine 20 mg 03/20/25 21:00 03/31/25 08:12 Famotidine 20 Mg Tablet PO 20 mg Q12HR [facility] Administration Ferrous Sulfate 325 mg 03/19/25 09:00 03/31/25 08:10 Ferrous Sulfate 325 Mg Tablet PO 325 mg BID [facility] Administration Fluticasone Propionate 1 spray 03/18/25 22:39 Fluticasone Propionate 0.05% Na Spr 16 Gm Btl (*Bkc) NASAL DAILY PRN Congestion Gabapentin 300 mg 03/20/25 14:00 03/31/25 05:45 Gabapentin 300 Mg Capsule PO 300 mg Q8HR [facility] Administration Hyoscyamine 0.0625 mg 03/19/25 13:48 03/20/25 09:56 Hyoscyamine Sulfate 0.0625 Mg Tablet PO 0.0625 mg Q4H PRN Administration Bladder Spasm Levofloxacin 250 mg 03/25/25 11:00 03/30/25 11:29 Levofloxacin 250 Mg Tablet PO 250 mg Q24H [facility] Administration Levothyroxine Sodium 200 mcg 03/19/25 06:30 03/31/25 05:45 Levothyroxine Sodium 100 Mcg Tablet PO 200 mcg DAILY@0630 [facility] Administration Metolazone 5 mg 03/31/25 09:00 03/31/25 08:10 Metolazone 5 Mg Tablet PO 5 mg WeSa@0900 [facility] Administration Metoprolol Tartrate 50 mg 03/19/25 09:00 03/31/25 08:11 Metoprolol Tartrate 50 Mg Tab PO 50 mg Q12HR [facility] Administration Midodrine 5 mg 03/20/25 13:00 03/31/25 08:10 Midodrine Hcl 2.5 Mg Tablet PO 5 mg TID ANGELA Administration Multi-Ingred Cream/Lotion/Oil/Oint 1 applic 03/19/25 09:00 03/31/25 08:13 Eucerin Cream 120 Gm Jar TOPICAL 1 applic DAILY [facility] Administration Oxybutynin Chloride 5 mg 03/19/25 12:30 03/30/25 08:56 Oxybutynin Chloride 5 Mg Tablet PO 5 mg TID PRN Administration Bladder Spasm Polyethylene Glycol 17 gm 03/20/25 09:00 03/31/25 08:13 Polyethylene Glycol 3350 17 Gm Powd.Pack PO 17 gm DAILY AN[facility]A Administration Potassium Chloride 10 meq 03/29/25 17:00 03/31/25 08:11 Potassium Chloride 10 Meq Er Tablet PO 10 meq BIDWM [facility] Administration Spironolactone 25 mg 03/19/25 09:00 03/31/25 08:12 Spironolactone 25 Mg Tablet PO 25 mg DAILY [facility] Administration Tamsulosin HCl 0.4 mg 03/19/25 09:00 03/31/25 08:10 Tamsulosin Hcl 0.4 Mg Capsule PO 0.4 mg QAM ANGELA Administration Radiology Results: ITS Impressions Chest X-Ray 03/18/25 13:29 IMPRESSION: 1. No acute cardiopulmonary findings given portable technique. Consider PA and lateral films with deep inspiration. Labs Labs: Laboratory Results - last 24 hr 03/30/25 03/31/25 05:46 05:26 WBC 9.2 9.2 RBC 4.73 4.71 Hgb 12.2 L 12.0 L Hct 42.7 42.2 MCV 90.3 89.6 MCH 25.8 L 25.5 L MCHC 28.6 L 28.4 L RDW 18.5 H 18.7 H Plt Count 351 336 MPV 10.7 H 10.7 H Immature Gran % (Auto) 0.8 H 1.1 H Neut % (Auto) 74.7 H 73.5 H Lymph % (Auto) 7.8 L 8.4 L [place] % (Auto) 8.7 H 8.3 Eos % (Auto) 6.9 H 7.5 H Baso % (Auto) 1.1 1.2 Lymph # (Auto) 0.72 L 0.78 L [place] # (Auto) 0.8 H 0.8 H Eos # (Auto) 0.6 H 0.7 H Baso # (Auto) 0.1 0.1 Abs Immat Gran (auto) 0.07 H 0.10 H Absolute Neuts (auto) 6.9 H 6.8 H Absolute Nucleated RBC 0.000 0.000 Band Neutrophils % Not Reportable Not Reportable Nucleated RBC % 0.0 0.0 Platelet Estimate Adequate Adequate Hypochromasia Occasional 1+ Anisocytosis 1+ 1+ Ovalocytes 1+ Schistocytes None seen None seen Sodium 132 L Potassium 3.5 Chloride 92 L Carbon Dioxide 30 Anion Gap 10 BUN 51 H Creatinine 2.79 H Estim Creat Clear Calc 29 Estimated GFR 22 L Glucose 104 Calcium 9.4 Phosphorus 6.3 H Magnesium 2.8 H Total Bilirubin 0.8 AST 22 ALT 14 Alkaline Phosphatase 68 Total Protein 6.7 Albumin 4.0
--- NOTE | 2025-03-31 10:56 | PCNWS ---
Weekly nutritional screen. Patient is tolerating current diet with adequate intake. No weight loss reported. No nutritional needs at this time.
--- NOTE | 2025-03-31 11:58 | PM.PNNEP ---
Progress Note: A&P Assessment and Plan (1) Acute kidney injury: Code(s): N17.9 - Acute kidney failure, unspecified Status: Resolved Assessment and Plan: slight worsening Over the week and about the same today as it was yesterday. as noted by labs on admission (creatinine of 2.84mg/dl) evaluation to date noted: urine electrolytes (FeUrea) are prerenal mild proteinuria CPK low UA suggestive of infection - but urine culture negative based on evidence to date, likely secondary to significant renal venous hypertension - his improvement in renal function/creatinine with diuresis supports this etiology restarted metolazone today and will continue twice weekly okay for discharge from the kidney standpoint (2) Stage 3b chronic kidney disease: Code(s): N18.32 - Chronic kidney disease, stage 3b Status: Chronic Assessment and Plan: baseline creatinine runs ~ 1.7 - 2.3mg/dl in the last year or so however, has been as low as 1.6mg/dl and as high as 2.7mg/dl in association with acute hospitalizations this causes him to fluctuate between CKD stage 3b and stage 4 secondary to hypertensive nephrosclerosis, vascular disease, as well as the necessity of chronic diuretic therapy to maintain his volume status along age-related change 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 He should get some blood work on Saturday and call for the results (4) Acute on chronic diastolic heart failure: Code(s): I50.33 - Acute on chronic diastolic (congestive) heart failure Status: Acute Assessment and Plan: as noted by symptoms of shortness of breath and #3 recent Echo (03/20) noted: left ventricular systolic function is normal, estimated at 55 - 60% left ventricular diastolic function is abnormal mild tricuspid valve regurgitation no pulmonary hypertension, estimated pulmonary arterial systolic pressure is 30 mmHg Cardiology recommendations noted continue diuresis but transition to oral diuretics with further medication changes noted on midodrine for BP support with diuresis continue Jardiance back on bumetanide metolazone, and spironolactone (5) Anemia: Qualifiers: Anemia type: due to chronic kidney disease Chronic kidney disease stage: stage 3 (moderate) Chronic kidney disease stage 3 subtype: unspecified whether 3a or 3b Qualified Code(s): N18.30 - Chronic kidney disease, stage 3 unspecified; D63.1 - Anemia in chronic kidney disease Code(s): D64.9 - Anemia, unspecified Status: Acute Assessment and Plan: partly due to CKD anemia studies with iron deficiency H/H doing well in the 11s and 12s (6) Hyponatremia: Code(s): E87.1 - Hypo-osmolality and hyponatremia Status: Chronic Assessment and Plan: mildly low and stable (7) Atrial fibrillation: Qualifiers: Atrial fibrillation type: longstanding persistent Qualified Code(s): I48.11 - Longstanding persistent atrial fibrillation Code(s): I48.91 - Unspecified atrial fibrillation Status: Chronic Assessment and Plan: heart rate 66 on metoprolol on eliquis (8) AMELIA (obstructive sleep apnea): Code(s): G47.33 - Obstructive sleep apnea (adult) (pediatric) Status: Chronic Assessment and Plan: continue CPAP at night and with rest Will continue to follow. Subjective Date/time seen: 03/31/25 11:58 Interval history: Patient feels okay. Swelling much better eager for discharge Exam Narrative: General: large but WD/WN male in NAD Heart: normal S1 and S2; no rub Or gallop Lungs: clear to auscultation Abdomen: obese but soft, nontender, nondistended, positive bowel sounds Extremities: no cyanosis or clubbing; 1+ edema;Scrotum is much better. Skin: chronic venous stasis changes apparent in LLE Objective Data Vital Signs Vital Signs: Vital Signs - 24 hr 03/30/25 14:00 03/30/25 17:30 03/30/25 20:00 Temperature 98.1 F Pulse Rate 64 66 75 Respiratory Rate 16 16 Blood Pressure 120/72 104/58 L Pulse Oximetry 96 98 96 Oxygen Delivery Room Air Fraction of Inspired Oxygen 21 03/30/25 20:32 03/30/25 20:40 03/31/25 06:00 Temperature 98.5 F 97.3 F L Pulse Rate 75 75 64 Respiratory Rate 16 18 Blood Pressure 107/61 111/49 L Pulse Oximetry 96 99 Oxygen Delivery Fraction of Inspired Oxygen 03/31/25 08:11 Temperature Pulse Rate 66 Respiratory Rate Blood Pressure Pulse Oximetry Oxygen Delivery Fraction of Inspired Oxygen Intake/Output Intake/Output: Intake & Output 03/28/25 03/29/25 03/30/25 03/31/25 23:59 23:59 23:59 23:59 Intake Total 850 1870 1530 740 Output Total 1900 1850 2030 1650 Balance -1050 20 500 910 Meds/Results Medications: Active Medications Generic Name Dose Route Start Last Admin Trade Name Freq PRN Reason Stop Dose Admin Acetaminophen 500 mg 03/18/25 22:39 03/31/25 08:15 Acetaminophen 500 Mg Tablet PO 500 mg Q6H PRN Administration fever or pain Acetazolamide 250 mg 03/19/25 08:00 03/31/25 08:10 Acetazolamide Tab 250 Mg Tablet PO 250 mg DAILY@0800 ANGELA Administration Allopurinol 100 mg 03/19/25 08:00 03/31/25 08:10 Allopurinol 100 Mg Tablet PO 100 mg DAILY@0800 ANGELA Administration Apixaban 5 mg 03/18/25 22:45 03/31/25 08:11 Apixaban 5 Mg Tablet PO 5 mg Q12HR ANGELA Administration Bumetanide 1 mg 03/29/25 09:00 03/31/25 08:10 Bumetanide 1 Mg Tablet PO 1 mg BID ANGELA Administration Calcitriol 0.25 mcg 03/19/25 09:00 03/31/25 08:10 Calcitriol 0.25 Mcg Capsule PO 0.25 mcg MoWeFr [facility] Administration Docusate Sodium 100 mg 03/19/25 09:00 03/31/25 08:10 Docusate Sodium 100 Mg Capsule PO 100 mg Q12HR ANGELA Administration Empagliflozin 10 mg 03/19/25 10:35 03/31/25 08:12 Empagliflozin 10 Mg Tablet PO 10 mg DAILY ANGELA Administration Ergocalciferol 1,250 mcg 03/22/25 09:00 03/29/25 09:18 Ergocalciferol (Vitamin D2) 1,250 Mcg (50,000 Units) Capsule PO 1,250 mcg WEEKLY ANGELA Administration Ergocalciferol 1,250 mcg 03/22/25 09:00 03/29/25 10:20 Ergocalciferol (Vitamin D2) 1,250 Mcg (50,000 Units) Capsule PO Not Given WEEKLY [facility] Famotidine 20 mg 03/20/25 21:00 03/31/25 08:12 Famotidine 20 Mg Tablet PO 20 mg Q12HR ANGELA Administration Ferrous Sulfate 325 mg 03/19/25 09:00 03/31/25 08:10 Ferrous Sulfate 325 Mg Tablet PO 325 mg BID ANGELA Administration Fluticasone Propionate 1 spray 03/18/25 22:39 Fluticasone Propionate 0.05% Na Spr 16 Gm Btl (*Bkc) NASAL DAILY PRN Congestion Gabapentin 300 mg 03/20/25 14:00 03/31/25 05:45 Gabapentin 300 Mg Capsule PO 300 mg Q8HR [facility] Administration Hyoscyamine 0.0625 mg 03/19/25 13:48 03/20/25 09:56 Hyoscyamine Sulfate 0.0625 Mg Tablet PO 0.0625 mg Q4H PRN Administration Bladder Spasm Levofloxacin 250 mg 03/25/25 11:00 03/30/25 11:29 Levofloxacin 250 Mg Tablet PO 250 mg Q24H [facility] Administration Levothyroxine Sodium 200 mcg 03/19/25 06:30 03/31/25 05:45 Levothyroxine Sodium 100 Mcg Tablet PO 200 mcg DAILY@0630 [facility] Administration Metolazone 5 mg 03/31/25 09:00 03/31/25 08:10 Metolazone 5 Mg Tablet PO 5 mg WeSa@0900 [facility] Administration Metoprolol Tartrate 50 mg 03/19/25 09:00 03/31/25 08:11 Metoprolol Tartrate 50 Mg Tab PO 50 mg Q12HR [facility] Administration Midodrine 5 mg 03/20/25 13:00 03/31/25 08:10 Midodrine Hcl 2.5 Mg Tablet PO 5 mg TID [facility] Administration Multi-Ingred Cream/Lotion/Oil/Oint 1 applic 03/19/25 09:00 03/31/25 08:13 Eucerin Cream 120 Gm Jar TOPICAL 1 applic DAILY ANGELA Administration Oxybutynin Chloride 5 mg 03/19/25 12:30 03/30/25 08:56 Oxybutynin Chloride 5 Mg Tablet PO 5 mg TID PRN Administration Bladder Spasm Polyethylene Glycol 17 gm 03/20/25 09:00 03/31/25 08:13 Polyethylene Glycol 3350 17 Gm Powd.Pack PO 17 gm DAILY ANGELA Administration Potassium Chloride 10 meq 03/29/25 17:00 03/31/25 08:11 Potassium Chloride 10 Meq Er Tablet PO 10 meq BIDWM ANGELA Administration Spironolactone 25 mg 03/19/25 09:00 03/31/25 08:12 Spironolactone 25 Mg Tablet PO 25 mg DAILY ANGELA Administration Tamsulosin HCl 0.4 mg 03/19/25 09:00 03/31/25 08:10 Tamsulosin Hcl 0.4 Mg Capsule PO 0.4 mg QAM ANGELA Administration Radiology Results: ITS Impressions Chest X-Ray 03/18/25 13:29 IMPRESSION: 1. No acute cardiopulmonary findings given portable technique. Consider PA and lateral films with deep inspiration. Labs Labs: Laboratory Results - last 24 hr 03/31/25 05:26 WBC 9.2 RBC 4.71 Hgb 12.0 L Hct 42.2 MCV 89.6 MCH 25.5 L MCHC 28.4 L RDW 18.7 H Plt Count 336 MPV 10.7 H Immature Gran % (Auto) 1.1 H Neut % (Auto) 73.5 H Lymph % (Auto) 8.4 L [place] % (Auto) 8.3 Eos % (Auto) 7.5 H Baso % (Auto) 1.2 Lymph # (Auto) 0.78 L [place] # (Auto) 0.8 H Eos # (Auto) 0.7 H Baso # (Auto) 0.1 Abs Immat Gran (auto) 0.10 H Absolute Neuts (auto) 6.8 H Absolute Nucleated RBC 0.000 Band Neutrophils % Not Reportable Nucleated RBC % 0.0 Platelet Estimate Adequate Hypochromasia 1+ Anisocytosis 1+ Schistocytes None seen Sodium 132 L Potassium 3.5 Chloride 92 L Carbon Dioxide 30 Anion Gap 10 BUN 51 H Creatinine 2.79 H Estim Creat Clear Calc 29 Estimated GFR 22 L Glucose 104 Calcium 9.4 Phosphorus 6.3 H Magnesium 2.8 H Total Bilirubin 0.8 AST 22 ALT 14 Alkaline Phosphatase 68 Total Protein 6.7 Albumin 4.0
--- NOTE | 2025-03-31 12:10 | PCOTNOTE ---
Attempted to see Patient at this time. Patient states he plans to be discharged and has a ride a 1:00 this afternoon. Patient agreed to practice dressing and a sliding board transfer to the bedside manual chair. Upon entering the room, Patient on a phone call with his daughter. She states he can not come home in the manual chair, his motorized chair is broken and he will not be able to transfer himself. Patient declined to perform at this time.
--- NOTE | 2025-03-31 12:32 | P.DS_ITS ---
DS: Admitting Diagnosis Discharge Date 03/31/2025 Admitting Diagnosis Acute on chronic combined systolic and diastolic heart failure/CKD/atrial fibrillation/venous insufficiency DS: Discharge Diagnosis Discharge Diagnosis (1) Acute on chronic diastolic heart failure: Code(s): I50.33 - Acute on chronic diastolic (congestive) heart failure Status: Acute (2) Cardiac enzymes elevated: Code(s): R74.8 - Abnormal levels of other serum enzymes Status: Acute (3) Atrial fibrillation: Qualifiers: Atrial fibrillation type: longstanding persistent Qualified Code(s): I48.11 - Longstanding persistent atrial fibrillation Code(s): I48.91 - Unspecified atrial fibrillation Status: Chronic (4) Venous stasis dermatitis: Code(s): I87.2 - Venous insufficiency (chronic) (peripheral) Status: Acute (5) Peripheral vascular disease: Code(s): I73.9 - Peripheral vascular disease, unspecified Status: Acute (6) Dyslipidemia: Code(s): E78.5 - Hyperlipidemia, unspecified Status: Acute (7) Hypothyroidism: Qualifiers: Hypothyroidism type: acquired Qualified Code(s): E03.9 - Hypothyroidism, unspecified Code(s): E03.9 - Hypothyroidism, unspecified Status: Chronic (8) CKD (chronic kidney disease) stage 3, GFR 30-59 ml/min: Qualifiers: Chronic kidney disease stage 3 subtype: stage 3b (GFR 30-44) Qualified Code(s): N18.32 - Chronic kidney disease, stage 3b Code(s): N18.3 - Chronic kidney disease, stage 3 (moderate) Status: Acute (9) Anemia of chronic disease: Code(s): D63.8 - Anemia in other chronic diseases classified elsewhere Status: Acute (10) AMELIA (obstructive sleep apnea): Code(s): G47.33 - Obstructive sleep apnea (adult) (pediatric) Status: Chronic (11) Gout: Qualifiers: Chronicity: chronic Gout etiology: unspecified cause Gout site: multiple sites Qualified Code(s): M1A.09X0 - Idiopathic chronic gout, multiple sites, without tophus (tophi) Code(s): M10.9 - Gout, unspecified Status: Acute (12) Rosacea: Code(s): L71.9 - Rosacea, unspecified Status: Acute DS: Summary Hospital Course Reason for hospitalization: Acute on chronic combined systolic and diastolic heart failure/CKD/atrial fibrillation/venous insufficiency Hospital Course: Reason for Admission The patient presented with?generalized weakness and marked edema, including scrotal swelling, resulting in inability to transfer from bed to scooter at home. Evaluation demonstrated?significant volume overload, elevated BNP, mild troponin elevation without ischemic symptoms, JENA on CKD, and urinalysis concerning for infection. Hospital Course The patient was admitted to IMU for management of?acute on chronic diastolic and right-sided heart failure with anasarca. He required aggressive IV diuresis with bumetanide, metolazone, spironolactone, and acetazolamide, supported with?midodrine for blood pressure tolerance. Volume status improved significantly with resolution of abdominal and scrotal edema. He was transitioned successfully to oral diuretics prior to discharge. Renal function initially worsened but improved with diuresis. Nephrology determined JENA was?prerenal due to renal venous congestion, now resolved, and cleared the patient for discharge. Cardiology followed throughout hospitalization. Troponin elevation was felt to be?demand-related in the setting of CHF and CKD, without evidence of acute coronary syndrome. UTI was treated with IV ceftriaxone and transitioned to oral levofloxacin with completion of therapy. Atrial fibrillation remained rate controlled on metoprolol, and anticoagulation with apixaban was continued without complication. By discharge, the patient was?euvolemic, hemodynamically stable, breathing comfortably on room air, and eager to return home. Status at Discharge Functional status at discharge: uses cane/walker Overall status at discharge: patient is back to baseline Time Spent with Patient Time attestation: Total time spent providing and/or coordinating discharge services: Time spent: Greater than 30 minutes Exam Const: General: cooperative, comfortable, no acute distress, well developed, awake, Physically active, average body habitus and well nourished Nutritional Appearance: average body habitus and well nourished Orientation/consciousness: oriented to person, oriented to place, oriented to time and patient oriented x3 Limitations: no limitations HENMT: Head: normal to inspection, No palpable skull fracture present, normocephalic, atraumatic and abrasion Ears: hearing grossly normal bilaterally Eyes: General: appearance normal, both eyes and all related structures Alignment and Position: alignment normal Periorbital: periorbital findings normal Eyelids: eyelids normal Neck: Neck: normal visual inspection, full ROM and no lymphadenopathy Chest: Chest palpation & inspection: normal inspection of the chest Resp: Effort & Inspection: normal respiratory effort Auscultation: clear to auscultation bilaterally Cardio: Palpation: normal PMI Rate: regular rate Rhythm: regular rhythm Heart sounds: S1 normal heart sound present and S2 normal heart sound present GI: Inspection: normal to inspection Auscultation: normal bowel sounds : General: Yes no CVA tenderness Back/Spine/Pelvis: Back: no CVA tenderness Cervical Spine: cervical ROM normal Skin: General skin exam: normal color Lesions: no lesions Rashes: no rashes Trauma: no lacerations or abrasions Wounds: no wounds Hair: normal Nails: normal Neuro: General: oriented to person, oriented to place, oriented to time and patient oriented x3 Cranial nerves: Yes Normal hearing present Cognition (Neuro): normal cognition Speech: normal speech Extrem: General: normal to inspection and edema Right upper extremity: normal to inspection and shoulder/upper arm Left upper extremity: normal to inspection and shoulder/upper arm Psych: Appearance: grossly normal Mental Status: mental status grossly normal Speech and movement: Normal speech and movement present Affect: normal affect Attitude: cooperative Thought process: Normal thought process present Insight: Good insight present (Psych) Judgement: Good judgement present (Psych) DS: Data Data Completed and Pending Labs on day of discharge: Labs from last 24 hours 03/31/25 05:26 WBC 9.2 RBC 4.71 Hgb 12.0 L Hct 42.2 MCV 89.6 MCH 25.5 L MCHC 28.4 L RDW 18.7 H Plt Count 336 MPV 10.7 H Immature Gran % (Auto) 1.1 H Neut % (Auto) 73.5 H Lymph % (Auto) 8.4 L [place] % (Auto) 8.3 Eos % (Auto) 7.5 H Baso % (Auto) 1.2 Lymph # (Auto) 0.78 L [place] # (Auto) 0.8 H Eos # (Auto) 0.7 H Baso # (Auto) 0.1 Abs Immat Gran (auto) 0.10 H Absolute Neuts (auto) 6.8 H Absolute Nucleated RBC 0.000 Band Neutrophils % Not Reportable Nucleated RBC % 0.0 Platelet Estimate Adequate Hypochromasia 1+ Anisocytosis 1+ Schistocytes None seen Sodium 132 L Potassium 3.5 Chloride 92 L Carbon Dioxide 30 Anion Gap 10 BUN 51 H Creatinine 2.79 H Estim Creat Clear Calc 29 Estimated GFR 22 L Glucose 104 Calcium 9.4 Phosphorus 6.3 H Magnesium 2.8 H Total Bilirubin 0.8 AST 22 ALT 14 Alkaline Phosphatase 68 Total Protein 6.7 Albumin 4.0 Imaging Radiologist's impression: Examination: XR chest 1V portable Clinical History: shortness of breath Comparison: 12/17/2024 Technique: Portable AP Findings: Heart size normal. Mild bibasilar atelectasis. No acute bony abnormality. IMPRESSION: 1. No acute cardiopulmonary findings given portable technique. Consider PA and lateral films with deep inspiration. Discharge Plan Discharge Attending physician on discharge: Irvin Weiss Consulting providers: Meng Al; Nubia Kirk Rafe M.; Fabby Boss; Shanda Barnett; Eric Nowak; Jennifer Hammond; Naresh Aguilera; Nava Sands; Vamsi Rosado; Irvin Weiss; Chester Longo; Anirudh Wise; Cherelle Aldridge Joseph A. Discharging Clinician: Jonna Jeff Anticipated Discharge Date/Time: 03/31/25 12:23 Patient Disposition: SNF Activity: as tolerated Diet: low sodium Discharge Instructions: 1). Acute on chronic diastolic heart failure * Continue PO bumex 1 mg BID and aldactone 25 mg PO daily * continue Jardiance 10 mg p.o. daily * Continue azetazolamide 250mg PO daily * Continue midodrine 5 mg TID for low blood pressure 2). Acute on chronic right ventricular heart failure * continue with oral bumex 1mg BID at discharge. 3). Paroxysmal atrial fibrillation * Continue Lopressor 50 mg p.o. b.i.d. * continue Eliquis 5 mg p.o. b.i.d. Follow-up with Cardiology in 4 weeks How can you care for yourself at home? ? Keep track of any new symptoms or changes in your symptoms. ? Rest until you feel better. ? Be safe with medicines. Take your medicines exactly as prescribed. Call your doctor if you think you are having a problem with your medicine. ? Do not drive after taking a prescription pain medicine. ? Ensure to follow-up with primary care physician as indicated and provide updated medication list provided to you at discharge. When should you call for help? Call 911 anytime you think you may need emergency care. For example, call if: ? You passed out (lost consciousness). Call your doctor now or seek immediate medical care if: ? You have new symptoms like fever, difficulty breathing, Chest pain, vomiting, or rash. ? You have new or different pain. ? You are confused and are having trouble thinking clearly. ? Your symptoms are getting worse. Watch closely for changes in your health, and be sure to contact your doctor if: ? You do not get better as expected. Patient Instructions: Antibiotic Form, Heart Attack (GEN), Heart Failure (DC), Heart Failure (GEN), A-fib (Atrial Fibrillation) (DC), Heart Healthy Diet (GEN), Low-Sodium Diet (DC), Left-sided and Right-sided Heart Failure (DC) Patient Language: Angolan Stand Alone Forms: General Discharge Information, Alf Discharge Follow-up/Referrals: Anirudh Wise MD [Physician, Cardiology] - 4 Weeks Discharge Medications: New metolazone 5 mg Tablet 5 mg PO WeSa@0900 Qty: 30 0RF midodrine 2.5 mg Tablet 5 mg PO TID Qty: 90 0RF ergocalciferol (vitamin D2) 1,250 mcg (50,000 unit) Capsule 1,250 mcg PO WEEKLY Qty: 30 0RF oxybutynin chloride 5 mg Tablet 5 mg PO TID PRN (Reason: Bladder Spasm) Qty: 60 0RF Jardiance 10 mg Tablet 10 mg PO DAILY Qty: 30 0RF Continued fluticasone propionate [Flonase Allergy Relief] 50 mcg/actuation spray,suspension 1 spray intranasal DAILY PRN (Reason: Congestion) Rx Instructions: administer into each nostril loratadine [Claritin] 10 mg tablet 10 mg PO DAILY Eliquis 5 mg tablet 5 mg PO Q12HR Qty: 180 1RF Patient Comments: calcitriol 0.25 mcg capsule 0.25 mcg PO 3XW Qty: 36 3RF Rx Instructions: take on Saturday, Saturday, Fridays famotidine 20 mg tablet 20 mg PO BID Qty: 180 3RF tamsulosin 0.4 mg capsule 0.4 mg PO QAM Qty: 90 3RF allopurinol 100 mg tablet 100 mg PO DAILY Qty: 10 0RF docusate sodium 100 mg capsule 100 mg PO Q12H potassium chloride 10 mEq capsule, extended release 20 meq PO TID acetaminophen 500 mg capsule 500 mg PO Q6H PRN (Reason: fever or pain) acetazolamide 250 mg tablet 250 mg PO DAILY@0800 metoprolol tartrate 50 mg tablet 50 mg PO DAILY@0800 polyethylene glycol 3350 [Miralax] 17 gram/dose powder 17 g PO DAILY Minerin Creme Cream 1 applic topical DAILY Qty: 113 0RF Rx Instructions: to both lower extremity intact skin spironolactone 25 mg tablet 25 mg PO DAILY Qty: 30 1RF levothyroxine 200 mcg tablet 200 mcg PO DAILY Qty: 90 1RF cholecalciferol (vitamin D3) 1,250 mcg (50,000 unit) capsule 1,250 mcg PO WEEKLY Qty: 14 1RF gabapentin 300 mg capsule 300 mg PO TID Qty: 270 1RF ferrous sulfate 325 mg (65 mg iron) tablet 325 mg PO BID Qty: 180 1RF Changed bumetanide 1 mg tablet 1 mg PO BID Qty: 60 0RF Discontinued minoxidil 2.5 mg tablet 2.5 mg PO DAILY metolazone 2.5 mg tablet 2.5 mg PO .COMPLEX Rx Instructions: 2.5 mg orally 4 times per week M,W,F,Sat; Date of admission: 03/18/25 15:41 Primary Care Provider: Kip Malcolm Admitting Provider: Panda Kc Attending physician on admission: Jonna Jeff Condition: Stable Quality VTE Prophylaxis VTE prophylaxis: pharmacologic ordered - Patient's previous records reviewed on admission -ER notes reviewed in detail on admission -discussed all findings and current treatment plan with patient/Family/POA -Consultations reviewed for recommendations -Patient's disposition for safe discharge discussed with director case management -radiology imaging, EKG and test results I have personally reviewed and interpreted unless otherwise specified Dictation performed by [employer] direct speech recognition software, therefore auto phone installer variants and typographical errors may occur. Hospitalist MIPS Heart Failure (Exclusion) Patient has history of Heart Transplant or Left Ventricular Assistive Device?: No IF YES, STOP HERE Heart Failure (Qualifier) Patient has current or prior documentation of LVEF less than or equal to 40%, or mod/servere depressed LVSF?: No IF NO, STOP HERE
--- NOTE | 2025-03-31 13:05 | PCOTNOTE ---
Attempted again at this time. RN stated Patient had discharge orders in and they needed to see if he could transfer. Patient states his daughter states he can not discharge due to his motorized chair is broken and he needs to be placed in a SNF prior to coming home. Patient declined to participate in therapy services at this time. Patient is angry and upset, not doing anything now, doesn't matter, I'm not leaving.
[2025-03-31 14:00] VITALS: BP 115/63; PULSE 66; RESP 16; TEMP 36.3; O2SAT 96
[2025-03-31 15:19] LABS: SARS-CoV-2 RNA PCR Negative (Negative)
[2025-03-31] MEDS: ONDANSETRON HCL ODT 4 MG TABLET PO (17:30)
== END 2025-03-31 17:45 | DRG 291 ==
LOC: ANHED 16:21 → ANHIMU 16:43 → ANH3MEDSUR 03-22 18:37
PROVIDERS: Internal Medicine; Internal Medicine Nephrology; Nurse Practitioner; Student in an Organized Health Care Education/Training Program; Admitting Provider Internal Medicine; Emergency Provider Student in an Organized Health Care Education/Training Program; PCP Family Medicine; Visit Provider Nurse Practitioner Family
DX: I13.0 Hypertensive heart and chronic kidney disease with heart failure and stage 1 through stage 4 chronic kidney disease, or unspecified chronic kidney disease (principal); I50.43 Acute on chronic combined systolic (congestive) and diastolic (congestive) heart failure; Z68.41 Body mass index [BMI] 40.0-44.9, adult; I48.11 Longstanding persistent atrial fibrillation; E87.1 Hypo-osmolality and hyponatremia; N17.9 Acute kidney failure, unspecified; N39.0 Urinary tract infection, site not specified; D63.1 Anemia in chronic kidney disease; E78.5 Hyperlipidemia, unspecified; E66.01 Morbid (severe) obesity due to excess calories; E03.9 Hypothyroidism, unspecified; E11.51 Type 2 diabetes mellitus with diabetic peripheral angiopathy without gangrene; E55.9 Vitamin D deficiency, unspecified; E11.42 Type 2 diabetes mellitus with diabetic polyneuropathy; G47.33 Obstructive sleep apnea (adult) (pediatric); G89.29 Other chronic pain; K21.9 Gastro-esophageal reflux disease without esophagitis; L71.9 Rosacea, unspecified; M54.9 Dorsalgia, unspecified; M10.9 Gout, unspecified; N50.89 Other specified disorders of the male genital organs; N18.32 Chronic kidney disease, stage 3b; Z90.49 Acquired absence of other specified parts of digestive tract; Z87.891 Personal history of nicotine dependence; Z79.84 Long term (current) use of oral hypoglycemic drugs; Z11.52 Encounter for screening for COVID-19; Z99.89 Dependence on other enabling machines and devices; Z89.511 Acquired absence of right leg below knee; Z79.01 Long term (current) use of anticoagulants
CPT/HCPCS: 36415; 71045; 80048; 80053; 80069; 81001; 82274; 82306; 82533; 82550; 82570; 82607; 82728; 82746; 83540; 83550; 83615; 83735; 83880; 83970; 84100; 84156; 84439; 84443; 84480; 84484; 84540; 85025; 85027; 85046; 87040; 87086; 87635; 93005; 97110; 97161; 97166; 97530; 97535; 99285; A9270; C8929; J0696; J1938; J1939; Q9957